=== PATIENT | female | born 1985 | race Caucasian/White ===

== ENCOUNTER 2018-06-07 09:02 | Emergency (ER) | payer OTHER ==
[2018-06-07 09:52] LABS: Absolute Monocytes 0.5 K/uL (0.1-1.3); Absolute Neutrophil 6.8 K/uL (1.8-8.0); Basophils % 0.4 % (0-1.3); Eosinophils % 0.5 % (0-4.4); Hematocrit 36.7 % (36.0-45.0); Lymphocytes % 12.2 % (15.3-44.8); MPV 9.3 fL (7.6-11.3); Monocytes % 5.9 % (3.3-12.3); RBC Red Blood Cell Count 4.26 M/uL (3.86-4.86)
[2018-06-07 10:27] LABS: BUN Blood Urea Nitrogen 8 mg/dL (7-18); Bicarbonate 25 mmol/L (21-32); Glucose Level 80 mg/dL (74-106); HCG, Quantitative 172962 mIU/mL (1-3); Potassium 3.7 mmol/L (3.5-5.1); Sodium Level 137 mmol/L (136-145)
[2018-06-07 10:47] LABS: Urine Blood TRACE (NEG); Urine Glucose NEGATIVE (NEG); Urine Protein 2+ (NEG)
--- NOTE | 2018-06-07 11:21 | RAD REPORT ---
EXAM DESCRIPTION: US - Transvaginal OB - 06/07/2018 11:13 am CLINICAL HISTORY: Vaginal bleeding;Abd cramping, COMPARISON: No comparisons FINDINGS: A single gestational sac is seen within the uterus. The shape of the sac is within normal limits for gestational age. Within the sac is a single pole with crown-rump length of 2.6 cm, c orrelating to estimated gestational age of 9 weeks 2 days. Estimated date of delivery is 01/08/2019. Heart rate is 195 BPM. The placenta is not yet developed due to early gestational age. The maternal adnexa and ovary are within normal limits. IMPRESSION: Single live early intrauterine gestation with estimated gestational age of 9 weeks 2 day s, [place] 01/08/2019.
--- NOTE | 2018-06-07 11:28 | ER ---
Nurse's Notes [facility] Name: Bri Boyd Age: 32 yrs Sex: Female : 1985 Arrival Date: 06/07/2018 Time: 09:05 Bed 16 Private MD: None, None Diagnosis: Threatened Presentation: 06/07 09:17 Presenting complaint: Patient states: is approx 9 weeks , LMP=12-16-18, has had iw spotting and cramping since Monday , states it's not enough to saturate a pad, bright red blood only when she wipes, no cramping now, is seen at [facility] clinic. Transition of care: patient was not received from another setting of care. Onset of symptoms was June 05, 2018. Risk Assessment: Do you want to hurt yourself or someone else? Patient reports no desire to harm self or others. Initial Sepsis Screen: Does the patient meet any 2 criteria? No. Patient's initial sepsis screen is negative. Does the patient have a suspected source of infection? No. Patient's initial sepsis screen is negative. Care prior to arrival: None. 09:17 Method Of Arrival: Ambulatory iw 09:17 Acuity: KARIE 3 iw Triage Assessment: 11:39 General: Appears in no apparent distress. 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 - Social history:: Smoking status: Patient/guardian denies using tobacco. - Ebola Screening: : Patient negative for fever greater than or equal to 101.5 degrees Fahrenheit, and additional compatible Ebola Virus Disease symptoms Patient denies exposure to infectious person Patient denies travel to an Ebola-affected area in the 21 days before illness onset No symptoms or risks identified at this time. Screenin:30 Abuse screen: Denies threats or abuse. Nutritional screening: No deficits noted. aa5 Tuberculosis screening: No symptoms or risk factors identified. Fall Risk None identified. Assessment: 09:30 General: Appears comfortable, Behavior is calm, cooperative. Pain: Complains of pain in aa5 right lower quadrant and left lower quadrant Pain does not radiate. Pain currently is 0 out of 10 on a pain scale. Quality of pain is described as crampy, Is intermittent. Neuro: Level of Consciousness is awake, alert, obeys commands, Oriented to person, place, time, situation. Cardiovascular: Heart tones S1 S2 present Rhythm is regular. Respiratory: Airway is patent Respiratory effort is even, unlabored, Respiratory pattern is regular, symmetrical, Breath sounds are clear bilaterally. GI: Abdomen is round non-distended, Bowel sounds present X 4 quads. Abd is soft and non tender X 4 quads. : Last void was June 07, 2018. Reports vaginal bleeding that is bright red, spotty. EENT: No signs and/or symptoms were reported regarding the EENT system. Derm: Skin is pink, warm \T\ dry. Musculoskeletal: Range of motion: intact in all extremities. Vital Signs: 09:26 BP 139 / 81; Pulse 81; Resp 16 S; Pulse Ox 100% on R/A; Weight 104.33 kg; Height 5 ft. iw 7 in. (170.18 cm); Pain 0/10; 11:32 BP 136 / ???; Pulse 78; Resp 16; Temp 98; Pulse Ox 99% on R/A; Pain 0/10; ls4 09:26 Body Mass Index 36.02 (104.33 kg, 170.18 cm) iw ED Course: 09:05 Patient arrived in ED. mr 09:06 None, None is Private Physician. mr 09:11 Akash Kim PA is PHCP. jr8 09:11 Kadeem Kothari MD is Attending Physician. jr8 09:14 Dianelys Cosme, MCKENZIE is Primary Nurse. aa5 09:21 Triage completed. iw 09:26 Arm band placed on. iw 09:30 Patient has correct armband on for positive identification. Placed in gown. Bed in low aa5 position. Call light in reach. Side rails up X 1. 09:35 Missed attempt(s): 22 gauge in left antecubital area. Bleeding controlled, band aid aa5 applied, catheter tip intact. 09:35 Initial lab(s) drawn, by nj, sent to lab. aa5 09:37 Inserted saline lock: 22 gauge in right upper arm, using aseptic technique. aa5 09:45 Urine collected: clean catch specimen, clear. 5 10:00 Report given to MCKENZIE Lockwood. aa5 11:24 Transvaginal Ob In Process Unspecified. EDMS 11:39 No provider procedures requiring assistance completed. IV discontinued, intact, ls4 bleeding controlled, No redness/swelling at site. Administered Medications: No medications were administered Outcome: 11:27 Discharge ordered by . jr8 11:45 Discharged to home ambulatory, with family. ls4 11:45 Condition: stable 11:45 Discharge instructions given to patient, family, Instructed on discharge instructions, follow up and referral plans. medication usage, safety practices, Demonstrated understanding of instructions, follow-up care, medications. 11:46 Patient left the ED. ls4 Signatures: Dispatcher [employer] EDHI Inga Zarco Irene, RN Dianelys Corbin RN RN 5 Akash Kim PA PA Bri Mei Mandie Reyes, RN RN ls4
--- NOTE | 2018-06-07 11:29 | EDPHYS ---
Physician Documentation [facility] Name: Bri Boyd Age: 32 yrs Sex: Female : 1985 Arrival Date: 06/07/2018 Time: 09:05 Bed 16 Private MD: None, None ED Physician Kadeem Kothari HPI: 06/07 10:23 This 32 yrs old Female presents to ER via Ambulatory with complaints of jr8 Vaginal Bleeding, 9 wks . 10:23 The patient presents with vaginal bleeding that is light, spotting. Onset: The jr8 symptoms/episode began/occurred acutely, 2 day(s) ago. Modifying factors: The symptoms are alleviated by nothing, the symptoms are aggravated by nothing. Associated signs and symptoms: Pertinent positives: cramping. Severity of symptoms: At their worst the symptoms were mild, in the emergency department the symptoms are unchanged. The patient has not experienced similar symptoms in the past. The patient has not recently seen a physician. 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 - Social history:: Smoking status: Patient/guardian denies using tobacco. - Ebola Screening: : Patient negative for fever greater than or equal to 101.5 degrees Fahrenheit, and additional compatible Ebola Virus Disease symptoms Patient denies exposure to infectious person Patient denies travel to an Ebola-affected area in the 21 days before illness onset No symptoms or risks identified at this time. ROS: 10:23 Eyes: Negative for injury, pain, redness, and discharge, ENT: Negative for injury, jr8 pain, and discharge, Neck: Negative for injury, pain, and swelling, Cardiovascular: Negative for chest pain, palpitations, and edema, Respiratory: Negative for shortness of breath, cough, wheezing, and pleuritic chest pain, Abdomen/GI: Negative for abdominal pain, nausea, vomiting, diarrhea, and constipation, Back: Negative for injury and pain, MS/Extremity: Negative for injury and deformity, Skin: Negative for injury, rash, and discoloration, Neuro: Negative for headache, weakness, numbness, tingling, and seizure. 10:23 : Positive for vaginal bleeding, Negative for urinary symptoms, vaginal discharge, vaginal itching. Exam: 10:23 Eyes: Pupils equal round and reactive to light, extra-ocular motions intact. Lids and jr8 lashes normal. Conjunctiva and sclera are non-icteric and not injected. Cornea within normal limits. Periorbital areas with no swelling, redness, or edema. ENT: Nares patent. No nasal discharge, no septal abnormalities noted. Tympanic membranes are normal and external auditory canals are clear. Oropharynx with no redness, swelling, or masses, exudates, or evidence of obstruction, uvula midline. Mucous membranes moist. Neck: Trachea midline, no thyromegaly or masses palpated, and no cervical lymphadenopathy. Supple, full range of motion without nuchal rigidity, or vertebral point tenderness. No Meningismus. Cardiovascular: Regular rate and rhythm with a normal S1 and S2. No gallops, murmurs, or rubs. Normal PMI, no JVD. No pulse deficits. Respiratory: Lungs have equal breath sounds bilaterally, clear to auscultation and percussion. No rales, rhonchi or wheezes noted. No increased work of breathing, no retractions or nasal flaring. Abdomen/GI: Soft, non-tender, with normal bowel sounds. No distension or tympany. No guarding or rebound. No evidence of tenderness throughout. Back: No spinal tenderness. No costovertebral tenderness. Full range of motion. Skin: Warm, dry with normal turgor. Normal color with no rashes, no lesions, and no evidence of cellulitis. MS/ Extremity: Pulses equal, no cyanosis. Neurovascular intact. Full, normal range of motion. Neuro: Awake and alert, GCS 15, oriented to person, place, time, and situation. Cranial nerves II-XII grossly intact. Motor strength 5/5 in all extremities. Sensory grossly intact. Cerebellar exam normal. Normal gait. Vital Signs: 09:26 BP 139 / 81; Pulse 81; Resp 16 S; Pulse Ox 100% on R/A; Weight 104.33 kg; Height 5 ft. iw 7 in. (170.18 cm); Pain 0/10; 11:32 BP 136 / ???; Pulse 78; Resp 16; Temp 98; Pulse Ox 99% on R/A; Pain 0/10; ls4 09:26 Body Mass Index 36.02 (104.33 kg, 170.18 cm) iw MDM: 09:11 Patient medically screened. [facility] 11:26 Data reviewed: vital signs, nurses notes, lab test result(s), radiologic studies, [facility] ultrasound, and as a result, I will discharge patient. Data interpreted: Pulse oximetry: on room air is 100 %. Interpretation: normal. Counseling: I had a detailed discussion with the patient and/or guardian regarding: the historical points, exam findings, and any diagnostic results supporting the discharge/admit diagnosis, lab results, radiology results, the need for outpatient follow up, an OB/Gyne specialist, to return to the emergency department if symptoms worsen or persist or if there are any questions or concerns that arise at home. 06/07 09:31 Order name: Quantitative Hcg; Complete Time: 10:06/07 09:31 Order name: Abo/rh Typing; Complete Time: 11: [facility] 06/07 09:31 Order name: Basic Metabolic Panel; Complete Time: :06/07 09:31 Order name: CBC with Diff; Complete Time: 10:18 06/07 09:48 Order name: Urine Dipstick--Ancillary (enter results); Complete Time: 11: 06/07 09:48 Order name: Urine --Ancillary (enter results); Complete Time: 11: 06/07 09:31 Order name: Urine Test (obtain specimen); Complete Time: 09:45 06/07 09:31 Order name: IV Saline Lock; Complete Time: 10: 06/07 09:31 Order name: Labs collected and sent; Complete Time: 10:06/07 09:31 Order name: NPO; Complete Time: 10:00 06/07 09:31 Order name: Urine Dipstick-Ancillary (obtain specimen); Complete Time: 09:46 [facility] 06/07 10:19 Order name: US Transvaginal Ob; Complete Time: 11:26 jr8 Administered Medications: No medications were administered Disposition: 06/07/18 11:27 Discharged to Home. Impression: Threatened . - Condition is Stable. - Discharge Instructions: Threatened Miscarriage, Vaginal Bleeding During , First Trimester, Pelvic Rest. - Medication Reconciliation Form, Thank You Letter, Antibiotic Education, Prescription Opioid Use form. - Follow up: Private Physician; When: 1 - 2 days; Reason: Recheck today's complaints, Continuance of care, Re-evaluation by your physician. - Problem is new. - Symptoms have improved. Signatures: Dispatcher [employer] EDNunu Mora RN RN Aksah Massey PA PA jr8 Mandie Gupta RN RN ls4 Corrections: (The following items were deleted from the chart) 11:46 11:27 06/07/2018 11:27 Discharged to Home. Impression: Threatened . Condition ls4 is Stable. Forms are Medication Reconciliation Form, Thank You Letter, Antibiotic Education, Prescription Opioid Use. Follow up: Private Physician; When: 1 - 2 days; Reason: Recheck today's complaints, Continuance of care, Re-evaluation by your physician. Problem is new. Symptoms have improved. jr8
[2018-06-07 12:23] VITALS: BP 139/81; O2SAT 100
== END 2018-06-07 11:46 | disposition home or self-care (01) ==
LOC: ER 09:02
DX: O20.0 Threatened abortion (principal); Z3A.09 9 weeks gestation of pregnancy; Z88.6 Allergy status to analgesic agent
CPT/HCPCS: 36415; 76817; 80048; 81003; 81025; 84702; 85025; 86900; 86901; 99283

== ENCOUNTER 2018-08-09 16:51 | Emergency (ER) | payer OTHER ==
--- OUTSIDE RECORDS SUMMARY | 2018-08-09 17:08 | XMS REPORT | Summary of Care ---
:1985 Author Organization [facility] Address [address], [place] [address]- Care Team Providers Name Role Phone Jericawiliam Kenny Alvarado Primary Care Physician Unavailable Encounter HQ [email or web address]_surjit(KAM) [id number] Date(s): 05/09/15 - 05/10/[address] Professional Services provided by [facility] [place] [address]- Discharge Disposition: Home Attending Physician: Pérez Sánchez MD Admitting Physician: Pérez Sánchez MD Referring Physician: Pérez Sánchez MD Vital Signs Most recent to oldest 1 2 3 [Reference Range]: Height 167.64 cm (05/09/15 6:04 AM) Temperature Oral [96.4-99.1 97.9 DegF 98 DegF 98.2 DegF DegF] (05/10/15 4:30 PM) (05/10/15 12:05 PM) (05/10/15 8:50 AM) Blood Pressure [90-140/60-90 110/75 mmHg 109/62 mmHg 106/59 mmHg mmHg] (05/10/15 4:30 PM) (05/10/15 12:05 PM) (05/10/15 8:50 AM) Respiratory Rate [14-20 BRMIN] 16 BRMIN 16 BRMIN 16 BRMIN (05/10/15 4:30 PM) (05/10/15 12:05 PM) (05/10/15 8:50 AM) Peripheral Pulse Rate [60-100 70 bpm 64 bpm 61 bpm bpm] (05/10/15 4:30 PM) (05/10/15 12:05 PM) (05/10/15 8:50 AM) Weight 77.273 kg (05/09/15 6:04 AM) Body Mass Index 27.5 m2 (05/09/15 6:04 AM) Problem List Condition Effective Dates Status Health Status Informant Cholecystitis(Confirmed) Resolved Glanzmann thromboasthenia(Confirmed) Resolved Hepatitis C(Confirmed) Resolved Allergies, Adverse Reactions, Alerts Substance Reaction Severity Status aspirin Active Iron Active NSAIDs Active Medications acetaminophen 650 mg, 2 tab, Route: PO, Drug form: TAB, ONCALL, Dosing Weight 77.273, kg, Premed Blood Products. Not to exceed 4grams/24hrs., Priority: Routine, Start date: 05/09/15 17:00:00, Duration: 30 day, Stop date: 06/08/15 16:59:00 Notes: Do not exceed 4 gm/day. (Same as: Tylenol) Start Date: 05/09/15 Stop Date: 05/10/15 Status: DiscontinuedAmicar + Sodium Chloride 0.9% IV 250 mL 3 gm, 12 mL, Route: IV, Drug form: INJ, Q8H, Dosing Weight 77.273, kg, Start date: 05/10/15 8:00:00,Duration: 30 day, Stop date: 06/09/15 2:00:00 Notes: (Same as: Amicar) Start Date: 05/10/15 Stop Date: 05/10/15 Status: DiscontinuedAmicar 1000 mg oral tablet See Instructions, 3 tab PO q6-8h PRN for bleeding., # 60 tab, 0 Refill(s) Start Date: 05/10/15 Status: OrderedclonazePAM PO, TID, 0 Refill(s) Start Date: 05/09/15 Status: OrderedclonazePAM 0.25 mg, 0.5 tab, Route: PO, Drug form: TAB, TID, Dosing Weight 77.273, kg, PRN Anxiety, Start date:05/09/15 13:00:00, Duration: 30 day, Stop date: 06/08/15 9: 00:00 Notes: (Same As: KlonoPIN) Start Date: 05/09/15 Stop Date: 05/10/15 Status: QrwryyroxhxfT4SS 1,000 mL 1,000 mL, Rate: 125 ml/hr, Infuse over: 8 hr, Route: IV, Dosing Weight 77.273 kg , Total Volume: 1,000, Start date: 05/09/15 8:36:00, Duration: 30 day, Stop date : 06/08/15 8:35:00 Start Date: 05/09/15 Stop Date: 05/10/15 Status: DiscontinuedDilaudid 0.5 mg, 0.25 mL, Route: IV, Drug form: INJ, ONCE, Dosing Weight 77.273, kg, Start date: 05/09/15 6:39:00, Stop date: 05/09/15 6:39:00 Notes: Same as: Dilaudid Start Date: 05/09/15 Stop Date: 05/09/15 Status: CompletedDilaudid 0.2 mg, 0.1 mL, Route: IV, Drug form: INJ, Q3H, Dosing Weight 77.273, kg, PRN Pain Score 7-10, Startdate: 05/09/15 8:37:00, Duration: 30 day, Stop date: 06/08 8:36:00 Notes: Same as: Dilaudid Start Date: 05/09/15 Stop Date: 05/10/15 Status: DiscontinueddiphenhydrAMINE 25 mg, 1 cap, Route: PO, Drug form: CAP, ONCALL, Dosing Weight 77.273, kg, Premed Blood Products, Priority: Routine, Start date: 05/09/15 17:00:00, Duration: 30 day, Stop date: 06/08/15 16:59:00 Notes: (Same as: Benadryl) Start Date: 05/09/15 Stop Date: 05/09/15 Status: Completedmelatonin 3 mg, 1 tab, Route: PO, Drug form: TAB, Bedtime, Dosing Weight 77.273, kg, PRN Sleep, Start date: 05/09/15 20:38:00, Duration: 30 day, Stop date: 06/08/15 20: 37:00 Notes: (Same as: Melatonin) Start Date: 05/09/15 Stop Date: 05/10/15 Status: Discontinuedmethadone PO, 0 Refill(s) Start Date: 05/09/15 Status: Orderedmorphine Sulfate 4 mg, 1 mL, Route: IVP, Drug form: INJ, ONCE, Dosing Weight 77.273, kg, Priority : STAT, Start date: 05/09/15 6:28:00, Stop date: 05/09/15 6:28:00 Notes: (Same as:MORPhine Sulfate) Start Date: 05/09/15 Stop Date: 05/09/15 Status: DiscontinuedNorco 10/325 oral tablet 1-2 tab, PO, Q4-6H, PRN Pain, # 30 tab, 0 Refill(s) Start Date: 05/09/15 Stop Date: 05/14/15 Status: OrderedOfirmev 1,000 mg, 100 mL, Route: IV, Drug form: INJ, Q6H, Dosing Weight 77.273, kg, for > or=50 kg, Start date: 05/09/15 12:00:00, Duration: 30 day, Stop date: 6:00:00 Notes: Infuse over 15 minutesDo not exceed 4gm/day of acetaminophen MEDICATION WASTE ProductSize: 1000 mgProduct Wasted: ___ mg Start Date: 05/09/15 Stop Date: 05/10/15 Status: Discontinuedondansetron 4 mg, 2 mL, Route: IVP, Drug form: INJ, ONCE, Dosing Weight 77.273, kg, Priority : STAT, Start date: 05/09/15 6:28:00, Stop date: 05/09/15 6:28:00 Notes: (Same as: Zofran) MEDICATION WASTE Product Size: 4 mgProduct Wasted: ___ mg Start Date: 05/09/15 Stop Date: 05/09/15 Status: CompletedSodium Chloride 0.9% (titrate) 250 mL 250 mL, Rate: hospital secretary for use with blood product administration, Dosing Weight 77.273, kg, Route: IV, Total Volume: 250, Start Date: 05/09/15 16:47:00, Duration: 30 day, Stop date: 06/08/15 16:46:00, Replace Every: 24 hr Start Date: 05/09/15 Stop Date: 05/10/15 Status: Discontinuedtramadol 100 mg oral tablet, extended release 100 mg=1 tab, PO, Daily, PRN pain, # 60 tab, 0 Refill(s) Start Date: 05/10/15 Stop Date: 05/10/15 Status: DiscontinuedTylenol with Codeine #3 oral tablet 1 - 2 tab, PO, Q4H, PRN Pain, X 3 day, # 20 tab, 0 Refill(s) Start Date: 05/10/15 Stop Date: 05/13/15 Status: Ordered Results BLOOD BANK RESULTS Most recent to oldest [Reference Range]: 1 2 3 ABO/Rh A POS *Unknown* (05/09/15 6:39 AM) Antibody Scrn Negative (05/09/15 6:39 AM) RBC product Product available (05/09/15 4:47 PM) URINE CHEM Most recent to oldest [Reference Range]: 1 2 3 U Preg [Negative] Negative (05/09/15 7:31 AM) HEMATOLOGY Most recent to oldest 1 2 3 [Reference Range]: WBC [3.7-10.4 K/CMM] 6.7 K/CMM (05/09/15 6:39 AM) RBC [4.20-5.40 M/CMM] 2.68 M/CMM *LOW* (05/09/15 6:39 AM) Hgb [12.0-16.0 g/dL] 8.3 g/dL 6.6 g/dL 1 6.9 g/dL 2 *LOW* *CRIT* *CRIT* (05/10/15 4:03 AM) (05/09/15 1:22 PM) (05/09/15 6:39 AM) Hct [36.0-48.0 %] 26.9 % 21.1 % 22.0 % *LOW* *LOW* *LOW* (05/10/15 4:03 AM) (05/09/15 1:22 PM) (05/09/15 6:39 AM) MCV [80.0-98.0 fL] 82.2 fL (05/09/15 6:39 AM) MCH [27.0-31.0 pg] 25.6 pg *LOW* (05/09/15 6:39 AM) MCHC [32.0-36.0 g/dL] 31.2 g/dL *LOW* (05/09/15 6:39 AM) RDW [11.5-14.5 %] 19.3 % *HI* (05/09/15 6:39 AM) Platelet [133-450 K/CMM] 101 K/CMM *LOW* (05/09/15 6:39 AM) MPV [7.4-10.4 fL] 9.0 fL (05/09/15 6:39 AM) Segs [45.0-75.0 %] 89.5 % *HI* (05/09/15 6:39 AM) Lymphocytes [20.0-40.0 %] 7.0 % *LOW* (05/09/15 6:39 AM) Monocytes [2.0-12.0 %] 2.0 % (05/09/15 6:39 AM) Eosinophils [0.0-4.0 %] 0.8 % (05/09/15 6:39 AM) Basophils [0.0-1.0 %] 0.7 % (05/09/15 6:39 AM) Segs-Bands # [1.5-8.1 K/CMM] 6.1 K/CMM (05/09/15 6:39 AM) Lymphocytes # [1.0-5.5 0.5 K/CMM K/CMM] *LOW* (05/09/15 6:39 AM) Monocytes # [0.0-0.8 K/CMM] 0.1 K/CMM (05/09/15 6:39 AM) Eosinophils # [0.0-0.5 0.1 K/CMM K/CMM] (05/09/15 6:39 AM) Hypochrom [None Seen] 1+ (05/09/15 6:39 AM) Plt Morph Normal (05/09/15 6:39 AM) Rapid TEG Sample Type Citrated Whole Blood (05/09/15 7:31 AM) ACT (TEG) [86-118 seconds] 105 seconds (05/09/15 7:31 AM) Split Point 0.3 minutes *NA* (05/09/15 7:31 AM) R-time [0.4-0.7 minutes] 0.6 minutes (05/09/15 7:31 AM) K-time [0.6-2.3 minutes] 4.8 minutes *HI* (05/09/15 7:31 AM) Angle [64-80 degrees] 63 degrees *LOW* (05/09/15 7:31 AM) Max Amp [52-71 mm] 36 mm *LOW* (05/09/15 7:31 AM) G-value [5.0-11.6 K d/sc] 2.8 K d/sc *LOW* (05/09/15 7:31 AM) Estimated % Lysis [0.0-7.5 0.0 % %] (05/09/15 7:31 AM) 1Result Comment: Critical Result(s) called to Hailey Bauer RN_ at 05/09/2015 13:45_ by Ebby_. Read back OK.2Result Comment: Critical Result(s) called to Sherry Vincent_ at 05/09/2015 07:57_ by Ebby_. Read back OK. Immunizations No data available for this section Procedures Procedure Date Related Diagnosis Body Site External fixation 04/2015 Cholecystectomy 2014 Hernia repair 1994 section Social History Social History Type Response Alcohol Current, Type Wine. Frequency: 1-2 times per month. Previous treatment: None. 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 Pt reports pain is stable. OBJECTIVE Vitals Tmp(F) Pulse BP RR SpO2 FIO2 05/10 03:26 98.1 89 115/63 18 97 --- 05/10 01:05 98.2 80 108/70 18 99 --- 05/09 23:00 98.3 70 114/70 18 98 --- 05/09 22:07 98.5 66 101/61 18 99 --- 05/09 21:52 98.5 83 101/61 18 97 --- 24 Hr Tmax: 99.1F (37.28c) at 05/09 10:37 Vital Signs are the last 5 in the past 48 hours. Gen: NAD CV: RRR Lungs: CTAB Abd: Soft, appropriately tender, ND, +BS Ext: No C/C/E/T b/l; SCDs and Teds in place 24hr Labs 05/09 1647 RBC product Product available 05/09 1322 Hgb 6.6 C Hct 21.1 L 05/09 0731 U Preg Negative Rapid TEG Sample Type Citrated Whole Blood ACT (TEG) 105 Split Point 0.3 R-time 0.6 K-time 4.8 H Angle 63 L Max Amp 36 L G-value 2.8 L Estimated % Lysis 0.0 05/09 0639 ABO/Rh A POS Antibody Scrn Negative XM EXM Interp Computer XM OK XM EXM Interp Computer XM OK WBC 6.7 RBC 2.68 L Hgb 6.9 C Hct 22.0 L MCV 82.2 MCH 25.6 L MCHC 31.2 L RDW 19.3 H Platelet 101 L MPV 9.0 Segs 89.5 H Monocytes 2.0 Lymphocytes 7.0 L Eosinophils 0.8 Basophils 0.7 Segs-Bands # 6.1 Lymphocytes # 0.5 L Monocytes # 0.1 Eosinophils # 0.1 Plt Morph Normal Hypochrom 1+ [place] still necessary (Yes/No): Line still necessary (Yes/No): Date Wt(kg) Wt(lb) Ht(cm) Ht(in) Method 05/09 (initial) 77.27 170.00 Measured 05/09 167.64 66.00 Stated I&O Record In Out Bal 05/09 24hr Tot 2184 1 2183 05/08 24hr Tot 0 0 0 Medications (11) Active Scheduled Meds (2): 05/09/15 acetaminophen (Ofirmev) 1,000 mg IV Q6H 05/10/15 aminocaproic acid + Sodium Chloride 0.9% IV 250 mL (Amicar + Sodium Chloride 0.9% IV 250 mL) 3 gm IV Q8H 87.33 ml/hr Unscheduled Meds (1): 05/09/15 acetaminophen 650 mg PO ONCALL PRN Meds (3): 05/09/15 clonazePAM 0.25 mg PO TID 05/09/15 hydromorphone (Dilaudid) 0.2 mg IV Q3H 05/09/15 melatonin 3 mg PO Bedtime One Time Meds (3): 05/09/15 (Completed) hydromorphone (Dilaudid) 0.5 mg IV ONCE 05/09/15 (Discontinued) morphine Sulfate 4 mg IVP ONCE 05/09/15 (Completed) ondansetron 4 mg IVP ONCE Continuous Infusions (2): 05/09/15 Dextrose 5% in Lactated Ringers IV 1,000 mL (D5LR 1,000 mL) 1,000 mL 125 ml/hr 05/09/15 Sodium Chloride 0.9% IV 250 mL (Sodium Chloride 0.9% (titrate) 250 mL ) 250 mL hospital secretary for use with blood product administration ASSESSMENT 29 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 PLAN 1. Ruptured hemorrhagic cyst- Arising from right ovary with free fluid in posterior cul-du-sac suggestive of hemoperitoneum. Hgb on arrival 6.9 after 1 u PRBCs at outside hospital. No peritoneal signs on abdominal exam. Hemodynamically stable. 2. Glanzmann's thrombasthenia- s/p Hematology consult. Recs include transfusing plts before any procedure. Start Amicar 3g and d/c w/ PO amicar. Have pt f/u with Hematology on d/c. 3. Acute Blood Loss Anemia: 6.0 --> 1 u PRBCs 6.9 --> 6.6-->2U PRBCs-->8.3. Pt asymptomatic Dispo: Anticipate d/c home today after touching base w/ hematology. Amina Kyle MD PGY-2 Extracted from: Title: Hematology Initial Consult Author: Aguilar Mcnally MD Date: RFC: Evaluation of Glanzmann Thrombasthenia in a patient with a Uterine bleed HPI: 29 y.o. F w/ Glanzmann Thrombasthenia, iron deficiency anemia, and Hepatitis C she presents with 1 day of abdominal pain, nausea, chills and found to have a ruptured uterine cyst. She recieved 1 u nit of prbcs at an outside hosptial and was transferred here. Review of Symptoms: Const: denies fevers and chills Eyes: no blurry vision ENT: no cough, no trouble swallowing Resp: no shortness of rbeath CV: no chest pain GI: no nausea or vomiting : no dysuria Skin: no rash Spark Plug Tester: see HPI Heme: see HPI Neuro: no headache 10 point review of systems is negative unless stated above PAST MEDICAL HISTORY: Glanzmann Thrombastehnia Iron Deficiency Anemia Hepatitis C PAST SURGICAL HISTORY: Hernia Repair Cholecystectomy x2 SOCIAL HISTORY: Denies EtOH, illicits, smoking FAMILY HISTORY: No family hx of bleeding disorders, glanzmann or osteoporosis Allergies (3) Active Reaction Iron None documented NSAIDs None documented aspirin None documented MEDS: reviewed in care 4 Physical Exam: Vitals Tmp(F) Pulse BP RR SpO2 FIO2 05/09 08:12 98.3 86 101/59 18 --- --- 05/09 07:30 ---- 80 104/61 18 98 --- 05/09 07:08 ---- 97 110/51 16 97 --- 05/09 06:04 99.0 104 114/57 16 98 --- 24 Hr Tmax: 99.0F (37.22c) at 05/09 06:04 Vital Signs are the last 5 in the past 48 hours. General- Well-appearing female in NAD Eyes- PERRL, EOMI, sclerae anicteric ENT- oropharynx clear without any noted lesions CV- RRR, S1/S2 present, no m/g/r Chest- CTAB Abdomen- Soft, ND/NT, +BS, no hepatosplenomegaly palpated Skin- No rash Neuro- Nonfocal Psych- Normal affect 05/09 0639 ABO/Rh A POS Antibody Scrn Negative WBC 6.7 RBC 2.68 L Hgb 6.9 C Hct 22.0 L MCV 82.2 MCH 25.6 L MCHC 31.2 L RDW 19.3 H Platelet 101 L MPV 9.0 Segs 89.5 H Monocytes 2.0 Lymphocytes 7.0 L Eosinophils 0.8 Basophils 0.7 Segs-Bands # 6.1 Lymphocytes # 0.5 L Monocytes # 0.1 Eosinophils # 0.1 Plt Morph Normal Hypochrom 1+ ASSESSMENT AND PLAN: 29 y.o. F w/ Glanzmann Thrombasthenia, iron deficiency anemia, Hepatitis C who presents after a ruptured uterine cyst and symptomatic anemia, she is now hemodynamically stable. 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 Lack of this causes a coagulopathy as no fibrin or formal clot can form. - Please start Amicar 3g (12cc) q8h and continue for 3 days after her surgery. If patient is ready for discharge prior to the 3 days, can switch to PO amicar. - Please give 1 jumbopack of platelets prior to any planned surgical procedure - If excess bleeding occurs, please call Hematology. Will need to dose with Factor VIIa 30mcg/kg IV x1, but call prior to giving - At time of discharge, please make follow up with her primary Turkey Egg Gatherer ( Matthias Rothman) [phone] - At time of discharge, patient will need a script for Amicar 3g q6-8h PRN bleeding, 60 tablets (or enough to last her until she sees Dr. Rothman in clinic ) # Iron Deficiency Anemia - Hx of being on oral iron, but varied compliance - Please start PO Ferrous Sulfate 325mg - transfuse per primary team; please let hematology know prior to discharge as she may benefit from IV iron prior to discharge Pt was seen and the plan was discussed with Dr. Holliday who helped formulate it. Addendum by Duglas Holliday MD on Hematology Attending Attestation: 05/09/2015 16:45 I saw and examined this patient with on 05/09/2015 , and I agree with findings, assessment, and recommended plan of care. I personally reviewed all labs. Duglas Holliday M.D. [id number] Identification Technician Division of Hematology (Internal Medicine) [facility]
--- OUTSIDE RECORDS SUMMARY | 2018-08-09 17:08 | XMS REPORT | CCD ---
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 Medications Medication Instructions Start Date End Date Status Zofran 4 mg, 2 mL, Route: IV, 08/29/2012 09/01/2012 Discontinued Drug form: INJ, Q8H, Dosing Weight 84.091, kg, PRN Nausea, Start date: 08/29/12 11:20:00, Duration: 30 day, Stop date: 09/28/12 11:19:00 [place] 10/325 oral tablet 2 tab, Route: PO, Drug 08/30/2012 09/01/2012 Discontinued Form: TAB, Dosing Weight 81.818, kg, Q4H, PRN Pain, Start date: 08/30/12 18:00:00, Duration: 30 day, Stop date: 09/29/12 17:59:00 morphine Sulfate 2 mg, 1 mL, Route: IVP, 08/29/2012 08/29/2012 Discontinued Drug form: INJ, Q2H, Dosing Weight 84.091, kg, PRN Pain, Start date: 08/29/12 11:20:00, Duration: 30 day, Stop date: 09/28/12 11:19:00 Colace 100 mg oral capsule 100 mg, 1 cap, Route: 08/29/2012 09/01/2012 Discontinued PO, Drug form: CAP, BID, Dosing Weight 84.091, kg, Start date: 08/29/12 17:00:00, Duration: 30 day, Stop date: 09/28/12 9:00:00 [place] 5/325 oral tablet 2 tab, Route: PO, Drug 08/29/2012 08/30/2012 Discontinued Form: TAB, Dosing Weight 84.091, kg, Q4H, PRN Pain, Start date: 08/29/12 11:18:00, Duration: 30 day, Stop date: 09/28/12 11:17:00 D5W 1/2NS + KCL 20mEq/L 1,000 mL, Rate: 75 08/29/2012 08/29/2012 Discontinued 1000ml (Premix) 1,000 mL ml/hr, Infuse over: 13.3 hr, Route: IV, Dosing Weight 84.091 kg, Total Volume: 1,000, Start date: 08/29/12 11:18:00, Duration: 30 day, Stop date: 09/28/12 11:17:00 aminocaproic acid 1.25 g/5 3 gm, 12 mL, PO, Q6H, 1 08/31/2012 Ordered mL oral syrup mL, Substitution Allowed, SYRP Colace 100 mg oral capsule 100 mg, 1 cap, PO, BID, 08/31/2012 Ordered 30 cap, Substitution Allowed, CAP [place] 10/325 oral tablet 1 tab, PO, Q4H, PRN, 30 08/31/2012 Ordered tab, Pain, Substitution Allowed, Maintenance, TAB diphenhydrAMINE 25 mg, 1 cap, Route: PO, Drug form: CAP, ONCALL, Dosing Weight 81.818, kg, Priority: Routine, Start date: 08/29/12 16:00:00, Duration: 30 day, Stop date: 09/28/12 15:59:00, Premed Blood Products 08/29/20122012 Discontinued Premed Blood Products acetaminophen 650 mg, 2 tab, Route: PO, Drug form: TAB, ONCALL, Dosing Weight 81.818, kg, Priority: Routine, Start date: 08/29/12 16:00:00, Duration: 30 day, Stop date: 09/28/12 15:59:00, Premed Blood Products. Not to exceed 4grams/ 24hrs. 08/29/2012 09/01/2012 Discontinued Premed Blood Products. Not to exceed 4grams/24hrs. 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 08/31/2012 09/01/2012 Completed (titrate) 250 mL for use with blood product administration, Dosing Weight 81.818, kg, Route: IV, Total Volume: 250, Duration: 1 day, Stop date: 09/01/12 9:30:00, Replace Every: 24 hr cefoxitin (SCIP) 1 gm, Route: IVPB, Drug 08/30/2012 08/30/2012 Completed form: INJ, ONCE, Dosing Weight 81.818, kg, Start date: 08/30/12 11:21:00, Stop date: 08/30/12 11:21:00 Dilaudid 0.2 mg, 0.1 mL, Route: 08/29/2012 08/31/2012 Discontinued IV, Drug form: INJ, Q4H, Dosing Weight 81.818, kg, PRN Pain, Start date: 08/29/12 15:37:00, Duration: 30 day, Stop date: 09/28/12 15:36:00 morphine Sulfate 4 mg, 1 mL, Route: IVP, 08/29/2012 08/29/2012 Completed Drug form: INJ, ONCE, Dosing Weight 84.091, kg, Start date: 08/29/12 10:31:00, Stop date: 08/29/12 10:31:00 Amicar 3 gm, 12 mL, Route: PO, 08/29/2012 08/29/2012 Deleted Drug form: SOLN, Q6H, Dosing Weight 81.818, kg, Start date: 08/29/12 18:00:00, Stop date: 09/28/12 12:00:00 hydromorphone 0.5 mg, 0.25 mL, Route: 08/30/2012 08/30/2012 Discontinued IVP, Drug form: INJ, Q5Min, Dosing Weight 81.818, kg, PRN Pain Score 7-10, Start date: 08/30/12 13:22:00, Duration: 5 doses or times, Stop date: 08/31/12 0:00:00 flumazenil 0.2 mg, 2 mL, Route: 08/30/2012 08/30/2012 Discontinued IVP, Drug form: INJ, PRN, Dosing Weight 81.818, kg, PRN Benzodiazepine Reversal, Initial dose, Start date: 08/30/12 13:22:00, Stop date: 08/31/12 0:00:00 naloxone 0.04 mg, 0.1 mL, Route: 08/30/2012 08/30/2012 Discontinued IVP, Drug form: INJ, Q2MIN, Dosing Weight 81.818, kg, PRN Narcotic Reversal, Start date: 08/30/12 13:22:00, Duration: 8 doses or times, Stop date: 08/31/12 0:00:00 ondansetron 4 mg, 2 mL, Route: IVP, 08/30/2012 08/30/2012 Discontinued Drug form: INJ, ONCE, Dosing Weight 81.818, kg, PRN Nausea & Vomiting, Start date: 08/30/12 13:22:00 Vital Signs Most recent to oldest 1 2 3 [Reference Range]: Height 167.64 cm 167.64 cm (08/29/2012 14:03:00) (08/29/2012 10:02:00) Temperature Oral 98.1 DegF 98.0 DegF 98.1 DegF [96.4-99.1 DegF] (09/01/2012 07:56:00) (09/01/2012 03:53:00) (09/01/2012 00: 28:00) Systolic Blood Pressure 116 mmHg 113 mmHg 112 mmHg [90-140 mmHg] (09/01/2012 07:56:00) (09/01/2012 03:53:00) (09/01/2012 00:28: 00) Diastolic Blood Pressure 72 mmHg 56 mmHg 72 mmHg [60-90 mmHg] (09/01/2012 07:56:00) *LOW* (09/01/2012 00:28:00) (09/01/2012 03:53:00) Respiratory Rate [14-20 17 BRMIN 17 BRMIN 18 BRMIN BRMIN] (09/01/2012 07:56:00) (09/01/2012 03:53:00) (09/01/2012 00:28:00) Peripheral Pulse Rate 71 bpm 66 bpm 100 bpm [60-100 bpm] (09/01/2012 07:56:00) (09/01/2012 03:53:00) (09/01/2012 00:28: 00) Weight 81.818 kg 84.091 kg (08/29/2012 14:03:00) (08/29/2012 10:02:00) Results URINALYSIS Most recent to oldest [Reference Range]: 1 2 3 UA Turbidity [Clear] Clear (08/29/2012 11:40:00) UA Color [Yellow] Yellow *NA* (08/29/2012 11:40:00) UA pH [5.0-8.0] 6.0 (08/29/2012 11:40:00) UA Spec Grav [<=1.030] 1.010 (08/29/2012 11:40:00) UA Glucose [Negative mg/dL] Negative mg/dL (08/29/2012 11:40:00) UA Blood [Negative] Negative (08/29/2012 11:40:00) UA Ketones [Negative mg/dL] Negative mg/dL *NA* (08/29/2012 11:40:00) UA Protein [Negative mg/dL] Negative mg/dL (08/29/2012 11:40:00) UA Urobilinogen [0.1-1.0 EU/dL] 0.2 EU/dL (08/29/2012 11:40:00) UA Bili [Negative] Negative *NA* (08/29/2012 11:40:00) UA Leuk Est [Negative] Negative (08/29/2012 11:40:00) UA Nitrite [Negative] Negative (08/29/2012 11:40:00) UA WBC [None Seen] None Seen (08/29/2012 11:40:00) UA RBC [0-2] None Seen (08/29/2012 11:40:00) UA Bacteria [None Seen] None Seen (08/29/2012 11:40:00) UA Sq Epi [Few /LPF] Few /LPF (08/29/2012 11:40:00) UA Mucus [None Seen] None Seen (08/29/2012 11:40:00) BLOOD BANK RESULTS Most recent to [Reference Range]: 1 2 3 ABO/Rh A POS *Unknown* (08/29/2012 10:50:00) Antibody Scrn Negative (08/29/2012 10:50:00) Platelet product Product available (08/30/2012 00:00:00) RBC product Product available (08/31/2012 09:31:00) CHEMISTRY Most recent to oldest [Reference 1 2 3 Range]: Sodium Lvl [135-145 mEq/L] 140 mEq/L 140 mEq/L (08/31/2012 02:20:00) (08/29/2012 10:50:00) Potassium Lvl [3.5-5.1 mEq/L] 3.8 mEq/L 4.2 mEq/L (08/31/2012 02:20:00) (08/29/2012 10:50:00) Chloride Lvl [95-109 mEq/L] 105 mEq/L 104 mEq/L (08/31/2012 02:20:00) (08/29/2012 10:50:00) CO2 [24-32 mEq/L] 25 mEq/L 23 mEq/L (08/31/2012 02:20:00) *LOW* (08/29/2012 10:50:00) AGAP [10.0-20.0 mEq/L] 13.8 mEq/L 17.2 mEq/L (08/31/2012 02:20:00) (08/29/2012 10:50:00) Creatinine Lvl [0.5-1.4 mg/dL] 0.6 mg/dL 0.5 mg/dL (08/31/2012 02:20:00) (08/29/2012 10:50:00) eGFR 124 mL/min/1.73m2 1 132 mL/min/1.73m2 2 *NA* *NA* (08/31/2012 02:20:00) (08/29/2012 10:50:00) BUN [7-22 mg/dL] 3 mg/dL 4 mg/dL *LOW* *LOW* (08/31/2012 02:20:00) (08/29/2012 10:50:00) Glucose Lvl [70-99 mg/dL] 112 mg/dL 3 90 mg/dL 4 *HI* (08/29/2012 10:50:00) (08/31/2012 02:20:00) Total Protein [6.4-8.4 g/dL] 6.5 g/dL (08/29/2012 10:50:00) Albumin Lvl [3.5-5.0 g/dL] 3.1 g/dL *LOW* (08/29/2012 10:50:00) Globulin [2.0-4.0 g/dL] 3.4 g/dL (08/29/2012 10:50:00) A/G Ratio [0.7-1.6] 0.9 (08/29/2012 10:50:00) Calcium Lvl [8.5-10.5 mg/dL] 8.7 mg/dL 7.9 mg/dL (08/31/2012 02:20:00) *LOW* (08/29/2012 10:50:00) Phosphorus [2.5-4.5 mg/dL] 3.7 mg/dL (08/31/2012 02:20:00) Magnesium Lvl [1.8-2.4 mg/dL] 1.6 mg/dL *LOW* (08/31/2012 02:20:00) ALT [0-65 unit/L] 21 unit/L (08/29/2012 10:50:00) AST [0-37 unit/L] 24 unit/L (08/29/2012 10:50:00) Alk Phos [39-136 unit/L] 61 unit/L (08/29/2012 10:50:00) Bili Total [0.2-1.3 mg/dL] 0.1 mg/dL *LOW* (08/29/2012 10:50:00) Bili Direct [0.0-0.3 mg/dL] 0.1 mg/dL (08/29/2012 10:50:00) Bili Indirect [0.0-1.0 mg/dL] 0.0 mg/dL (08/29/2012 10:50:00) U Preg [Negative] Negative (08/29/2012 11:40:00) 1Result Comment: The eGFR is calculated using the CKD-EPI formula. In most young , healthy individualsthe eGFR will be >90 mL/min/1.73m2. The eGFR declines with age. An eGFR of 60-89 may be normal in some populations, particularly the elderly, for whom the CKD-EPI formula has not been extensively validated. Use of the eGFR is not recommended in the following populations: Individuals with unstable creatinine concentrations, including patients and those with serious co-morbid conditions. Patients with extremes in muscle mass or diet. The data above are obtained from the National Kid[employer] Disease Education Program ( NK[employer]) which additionally recommends that when the eGFR is used in patients with extremes of body mass index for purposesof drug dosing, the eGFR should be multiplied by the estimated BMI.2Result Comment: The eGFR is calculated using the CKD-EPI formula. In most young, healthy individualsthe eGFR will be >90 mL/ min/1.73m2. The eGFR declines with age. An eGFR of 60-89 may be normal in some populations, particularly the elderly, for whom the CKD-EPI formula has not been extensively validated. Use of the eGFR is not recommended in the following populations: Individuals with unstable creatinine concentrations, including patients and those with serious co-morbid conditions. Patients with extremes in muscle mass or diet. The data above are obtained from the National Kid[employer] Education Program ( NKDEP) which additionally recommends that when the eGFR is used in patients with extremes of body mass index for purposesof drug dosing, the eGFR should be multiplied by the estimated BMI.3Interpretive Data: Adult reference range values reflect the clinical guidelines of the [place] [employer].4Interpretive Data: Adult reference range values reflect the clinical guidelines of the [place] [employer].HEMATOLOGY Most recent to oldest 1 2 3 [Reference Range]: WBC [3.7-10.4 K/CMM] 6.3 K/CMM 6.5 K/CMM 8.8 K/CMM (09/01/2012 04:09:00) (08/31/2012 02:20:00) (08/30/2012 20::31) RBC [4.20-5.40 M/CMM] 3.31 M/CMM 2.72 M/CMM 2.72 M/CMM *LOW* *LOW* *LOW* (09/01/2012 04:09:00) (08/31/2012 02:20:00) (08/30/2012::31) Hgb [12.0-16.0 g/dL] 8.3 g/dL 6.6 g/dL 5 6.7 g/dL 6 *LOW* *CRIT* *CRIT* (09/01/2012 04:09:00) (08/31/2012 02:20:00) (08/30/2012:) Hct [36.0-48.0 %] 26.4 % 21.8 % 22.3 % *LOW* *LOW* *LOW* (09/01/2012 04:09:00) (08/31/2012 02:20:00) (08/30/2012::31) MCV [81.0-99.0 fL] 79.9 fL 80.1 fL 82.0 fL *LOW* *LOW* (08/30/2012::31) (09/01/2012 04:09:00) (08/31/2012 02:20:00) MCH [27.0-31.0 pg] 25.0 pg 24.3 pg 24.6 pg *LOW* *LOW* *LOW* (09/01/2012 04:09:00) (08/31/2012 02:20:00) (08/30/2012::31) MCHC [32.0-36.0 g/dL] 31.3 g/dL 30.3 g/dL 30.0 g/dL *LOW* *LOW* *LOW* (09/01/2012 04:09:00) (08/31/2012 02:20:00) (08/30/2012::31) RDW [11.5-14.5 %] 17.4 % 18.2 % 18.0 % *HI* *HI* *HI* (09/01/2012 04:09:00) (08/31/2012 02:20:00) (08/30/2012 20:01:31) Platelet [133-450 K/CMM] 86 K/CMM 84 K/CMM 85 K/CMM *LOW* *LOW* *LOW* (09/01/2012 04:09:00) (08/31/2012 02:20:00) (08/30/2012 20:01:31) MPV [7.4-10.4 fL] 9.5 fL 9.4 fL 9.9 fL (09/01/2012 04:09:00) (08/31/2012 02:20:00) (08/30/2012 20:01:31) Segs [45.0-75.0 %] 63.7 % 74.8 % 82.6 % (09/01/2012 04:09:00) (08/31/2012 02:20:00) *HI* (08/30/2012::31) Bands [0.0-11.0 %] 0.0 % (08/29/2012 10:50:00) Lymphocytes [20.0-40.0 %] 19.3 % 14.6 % 8.9 % *LOW* *LOW* *LOW* (09/01/2012 04:09:00) (08/31/2012 02:20:00) (08/30/2012::31) Atypical Lymphs [<=0.0 %] 0.0 % (08/29/2012 10:50:00) Monocytes [2.0-12.0 %] 9.2 % 7.2 % 7.0 % (09/01/2012 04:09:00) (08/31/2012 02:20:00) (08/30/2012 20:01:31) Eosinophils [0.0-4.0 %] 7.3 % 3.1 % 1.3 % *HI* (08/31/2012 02:20:00) (08/30/2012:01:31) (09/01/2012 04:09:00) Basophils [0.0-1.0 %] 0.5 % 0.3 % 0.2 % (09/01/2012 04:09:00) (08/31/2012 02:20:00) (08/30/2012 20:01:31) Segs-Bands # [1.5-8.1 4.0 K/CMM 4.9 K/CMM 7.3 K/CMM K/CMM] (09/01/2012 04:09:00) (08/31/2012 02:20:00) (08/30/2012 20:01:31) Lymphocytes # [1.0-5.5 1.2 K/CMM 0.9 K/CMM 0.8 K/CMM K/CMM] (09/01/2012 04:09:00) *LOW* *LOW* (08/31/2012 02:20:00) (08/30/2012 20:01:31) Monocytes # [0.0-0.8 K/CMM] 0.6 K/CMM 0.5 K/CMM 0.6 K/CMM (09/01/2012 04:09:00) (08/31/2012 02:20:00) (08/30/2012 20:01:31) Eosinophils # [0.0-0.5 0.5 K/CMM 0.2 K/CMM 0.1 K/CMM K/CMM] (09/01/2012 04:09:00) (08/31/2012 02:20:00) (08/30/2012 20:01:31) Polychrom [None Seen] Slight (08/29/2012 10:50:00) Hypochrom [None Seen] Slight (08/29/2012 10:50:00) Microcyte [None Seen] 1+ *ABN* (08/29/2012 10:50:00) Schistocyte Rare *Unknown* (08/29/2012 10:50:00) Plt Morph Normal (08/29/2012 10:50:00) PT [12.0-14.7 seconds] 14.5 seconds (08/30/2012 04:58:00) INR [0.85-1.17] 1.11 7 (08/30/2012 04:58:00) Fibrinogen Lvl [230-510 219 mg/dL mg/dL] *LOW* (08/30/2012 04:58:00) PTT [22.9-35.8 seconds] 27.4 seconds 8 (08/30/2012 04:58:00) Rapid TEG Sample Type Citrated Whole Bld *NA* (08/29/2012 10:51:00) ACT (TEG) [86-118 seconds] 105 seconds (08/29/2012 10:51:00) Split Point 0.4 minutes *NA* (08/29/2012 10:51:00) R-time [0.4-0.7 minutes] 0.6 minutes (08/29/2012 10:51:00) K-time [0.6-2.3 minutes] 6.6 minutes *HI* (08/29/2012 10:51:00) Angle [64-80 degrees] 53 degrees *LOW* (08/29/2012 10:51:00) Max Amp [52-71 mm] 34 mm *LOW* (08/29/2012 10:51:00) G-value [5.0-11.6 K d/sc] 2.6 K d/sc *LOW* (08/29/2012 10:51:00) Estimated % Lysis [0.0-7.5 0.0 % %] (08/29/2012 10:51:00) 5Result Comment: Critical Result(s) called to Rosangela Nugent at 08/31/2012 04:30:58 CDT by GD. Read back OK.6Result Comment: Critical Result(s) called to Wilda Godfrey at 08/30/2012 23:19:04 CDT by GD. Read back OK.7Interpretive Data: RECOMMENDED RANGES FOR PROTIME INR: 2.0-3.0 for most medical and surgical thromboembolic states. 2.5-3.5 for artificial heart valves and recurrent embolism. INR SHOULD BE USED ONLY FOR PATIENTS ON STABLE ANTICOAGULANT THERAPY.8Interpretive Data: Heparin Therapeutic Range: 57 - 92 Seconds Procedures Procedures Date Related Diagnosis section
--- OUTSIDE RECORDS SUMMARY | 2018-08-09 17:08 | XMS REPORT | Summary of Care ---
:1985 Author Organization [facility] Address [address] [place], [place] [address]- Care Team Providers Name Role Phone Kenny Bonds Sofiawiliam Primary Care Physician Unavailable Encounter [facility] Tigist_[email or web address](FIN) [phone] Date(s): 04/14/15 - 04/18/[address] Professional Services provided by [facility] [place] [address]- Discharge Disposition: Home Attending Physician: Arturo Gunter MD Admitting Physician: Arturo Gunter MD Referring Physician: Rod Multani MD Vital Signs Most recent to oldest 1 2 3 [Reference Range]: Height 167.7 cm 167.64 cm (04/15/15 1:18 AM) (04/14/15 4:36 PM) Temperature Oral [96.4-99.1 98.7 DegF 98.6 DegF 98.8 DegF DegF] (04/18/15 8:58 PM) (04/18/15 4:24 PM) (04/18/15 11:35 AM) Blood Pressure [90-140/60-90 128/73 mmHg 111/61 mmHg 112/64 mmHg mmHg] (04/18/15 8:58 PM) (04/18/15 4:24 PM) (04/18/15 11:35 AM) Respiratory Rate [14-20 18 BRMIN 20 BRMIN 18 BRMIN BRMIN] (04/18/15 8:58 PM) (04/18/15 4:24 PM) (04/18/15 11:35 AM) Peripheral Pulse Rate [60-100 82 bpm 83 bpm 76 bpm bpm] (04/18/15 8:58 PM) (04/18/15 4:24 PM) (04/18/15 11:35 AM) Weight 81.818 kg 81.818 kg (04/15/15 1:18 AM) (04/14/15 4:36 PM) Body Mass Index 29.09 m2 29.11 m2 (04/15/15 1:18 AM) (04/14/15 4:36 PM) Problem List Condition Effective Dates Status Health Status Informant Cholecystitis(Confirmed) Resolved Glanzmann thromboasthenia(Confirmed) Resolved Hepatitis C(Confirmed) Resolved Allergies, Adverse Reactions, Alerts Substance Reaction Severity Status aspirin Active Iron Active NSAIDs Active Medications acetaminophen 1,000 mg, 2 tab, Route: PO, Drug form: TAB, Q6H, Dosing Weight 81.818, kg, Start date: 04/16/15 12:00:00, Duration: 30 day, Stop date: 05/16/15 6:00:00 Notes: Max acetaminophen 4000 mg/day (4 gm/day). (Same as: Tylenol Extra Strength) Start Date: 04/16/15 Stop Date: 04/18/15 Status: Discontinuedacetaminophen 1,000 mg, 100 mL, Route: IVPB, Drug form: INJ, Q6Hnow, Dosing Weight 81.818, kg , Start date: 04/15/15 0:00:00, Stop date: 05/14/15 17:00:00 Notes: Infuse over 15 minutesDo not exceed 4gm/day of acetaminophen MEDICATION WASTE ProductSize: 1000 mgProduct Wasted: ___ mg Start Date: 04/15/15 Stop Date: 04/16/15 Status: DiscontinuedAmicar 1 gm, PO, Q6H, 0 Refill(s) Start Date: 04/15/15 Stop Date: 04/18/15 Status: DiscontinuedAmicar + Sodium Chloride 0.9% IV 150 mL 3 gm, 12 mL, Route: IVPB, Drug form: INJ, Q8H, Dosing Weight 81.818, kg, Start date: 04/14/15 20:30:00, Stop date: 05/14/15 14:30:00 Notes: (Same as: Amicar) Start Date: 04/14/15 Stop Date: 04/18/15 Status: DiscontinuedAmicar 1000 mg oral tablet See Instructions, 3 tab PO q6-8h PRN for bleeding., # 60 tab, 0 Refill(s) Start Date: 04/18/15 Status: OrderedAncef 2 gm, Route: IV, ONCE, Dosing Weight 81.818, kg, Start date: 04/15/15 7:49:00, Duration: 1 doses or times, Stop date: 04/15/15 7:49:00 Start Date: 04/15/15 Stop Date: 04/15/15 Status: CompletedAncef + Sodium Chloride 0.9% IV 100 mL 2 gm, Route: IVPB, Drug form: INJ, Q8H, Dosing Weight 81.818, kg, Start date: 16:00:00, Duration: 1 day, Stop date: 04/16/15 8:00:00 Notes: (Same As: Pato Garcia)Cefazolin FOR IV SET ONLY MEDICATION WASTE Product Size:1000 mgProduct Wasted: ___ mg Start Date: 04/15/15 Stop Date: 04/16/15 Status: CompletedDilaudid 1 mg, 0.5 mL, Route: IV, Drug form: INJ, Q4H, Dosing Weight 81.818, kg, PRN Pain Score 7-10, Start date: 04/15/15 0:14:00, Stop date: 05/15/15 0:13:00 Notes: Same as: Dilaudid Start Date: 04/15/15 Stop Date: 04/16/15 Status: DiscontinuedDilaudid 0.5 mg, Route: IVP, ONCE, Dosing Weight 81.818, kg, Priority: STAT, Start date: 04/14/15 20:34:00, Stop date: 04/14/15 20:34:00 Start Date: 04/14/15 Stop Date: 04/14/15 Status: CompletedDilaudid 1 mg, Route: IVP, ONCE, Dosing Weight 81.818, kg, Priority: STAT, Start date: 19:41:00, Stop date: 04/14/15 19:41:00 Start Date: 04/14/15 Stop Date: 04/14/15 Status: CompletedDilaudid 1 mg, Route: IVP, ONCE, Dosing Weight 81.818, kg, Priority: STAT, Start date: 5:06:00, Stopdate: 04/16/15 5:06:00 Start Date: 04/16/15 Stop Date: 04/16/15 Status: DiscontinueddiphenhydrAMINE 12.5 mg, 5 mL, Route: PO, Drug form: LIQ, Q6H, Dosing Weight 81.818, kg, PRN Itching, Start date: 04/14/15 23:45:00, Duration: 30 day, Stop date: 05/14/15 23 :44:00 Notes: (Same as: Benadryl) Start Date: 04/14/15 Stop Date: 04/18/15 Status: Discontinueddocusate 100 mg, 1 cap, Route: PO, Drug form: CAP, BID, Dosing Weight 81.818, kg, Start date: 04/15/15 9:00:00, Duration: 30 day, Stop date: 05/14/15 17:00:00 Notes: (Same as: Colace) (Do Not Crush) Start Date: 04/15/15 Stop Date: 04/18/15 Status: Discontinueddronabinol 5 mg, 1 cap, Route: PO, Drug form: CAP, [id number], Dosing Weight 81.818, kg, Start date: 04/16/15 13:00:00, Duration: 30 day, Stop date: 05/16/15 1:00:00 Notes: (Same as: Marinol) Non-Formulary Drug. Start Date: 04/16/15 Stop Date: 04/18/15 Status: DiscontinuedfentaNYL 100 microgram, Route: IVP, ONCE, Dosing Weight 81.818, kg, Priority: STAT, Start date: 04/14/15 16:54:00, Stop date: 04/14/15 16:54:00 Start Date: 04/14/15 Stop Date: 04/14/15 Status: CompletedfentaNYL 100 microgram, Route: IV, ONCE, Dosing Weight 81.818, kg, Start date: 04/14/15 20:32:00, Stop date: 04/14/15 20:32:00 Start Date: 04/14/15 Stop Date: 04/14/15 Status: Completedgabapentin 400 mg, 1 cap, Route: PO, Drug form: CAP, Q8Hnow, Dosing Weight 81.818, kg, Start date: 04/15/15 0:00:00, Stop date: 05/14/15 16:00:00 Notes: (Same as: Neurontin) Start Date: 04/15/15 Stop Date: 04/16/15 Status: Discontinuedgabapentin 600 mg, 2 cap, Route: PO, Drug form: CAP, Q8H, Dosing Weight 81.818, kg, Start date: 04/16/15 16:00:00, Duration: 30 day, Stop date: 05/16/15 8:00:00 Notes: (Same as: Neurontin) Start Date: 04/16/15 Stop Date: 04/18/15 Status: Discontinuedgabapentin 600 mg oral tablet 600 mg=1 tab, PO, Q8H, # 90 tab, 0 Refill(s) Start Date: 04/18/15 Stop Date: 05/18/15 Status: Orderedhydromorphone 0.5 mg, 0.25 mL, Route: IVP, Drug form: INJ, Q5Min, Dosing Weight 81.818, kg, PRN Pain Score 7-10, Start date: 04/15/15 9:05:00, Duration: 4 doses or times, Stop date: 04/16/15 0:00:00 Notes: Same as: Dilaudid Start Date: 04/15/15 Stop Date: 04/15/15 Status: CompletedketAMINE 20 mg, Route: IV, ONCE, Dosing Weight 81.818, kg, Start date: 04/14/15 21:05:00 , Stop date: 04/14/1521:05:00 Start Date: 04/14/15 Stop Date: 04/14/15 Status: CompletedketAMINE 80 mg, Route: IVP, ONCE, Dosing Weight 81.818, kg, Priority: STAT, Start date: 04/14/15 20:32:00, Stop date: 04/14/15 20:32:00 Start Date: 04/14/15 Stop Date: 04/14/15 Status: CompletedketAMINE 20 mg, Route: IV, ONCE, Dosing Weight 81.818, kg, Start date: 04/14/15 21:08:00 , Stop date: 04/14/1521:08:00 Start Date: 04/14/15 Stop Date: 04/14/15 Status: Completedmethadone 5 mg, 1 tab, Route: PO, Drug form: TAB, Q12H, Dosing Weight 81.818, kg, Start date: 04/17/15 20:00:00, Duration: 30 day, Stop date: 05/17/15 9:00:00 Notes: (Same as: Dolophine) Start Date: 04/17/15 Stop Date: 04/18/15 Status: Discontinuedmethadone 5 mg, 1 tab, Route: PO, Drug form: TAB, Q8H, Dosing Weight 81.818, kg, Start date: 04/16/15 16:00:00, Duration: 30 day, Stop date: 05/16/15 8:00:00 Notes: (Same as: Dolophine) Start Date: 04/16/15 Stop Date: 04/17/15 Status: Discontinuedmethadone 10 mg, 1 tab, Route: PO, Drug form: TAB, ONCE, Dosing Weight 81.818, kg, Priority: NOW, Start date: 04/16/15 11:30:00, Stop date: 04/16/15 11:30:00 Notes: (Same as: Dolophine) Start Date: 04/16/15 Stop Date: 04/16/15 Status: Completedmethocarbamol 500 mg oral tablet 1,000 mg=2 tab, PO, Q8H, X 14 day, # 80 tab, 0 Refill(s) Start Date: 04/18/15 Stop Date: 05/02/15 Status: OrderedMiraLax 17 gm, 1 pkt, Route: PO, Drug form: PWDR, Daily, Dosing Weight 81.818, kg, Start date: 04/17/15 17:00:00, Duration: 30 day, Stop date: 05/17/15 9:00:00 Notes: Dissolve in 8 oz of water or juice.(Same as: Miralax) Start Date: 04/17/15 Stop Date: 04/18/15 Status: Discontinuedmorphine Sulfate 2 mg, 1 mL, Route: IVP, Drug form: INJ, Q4H, Dosing Weight 81.818, kg, PRN Pain Score 7-10, Start date: 04/14/15 23:45:00, Duration: 30 day, Stop date: 23:44:00 Notes: (Same as:MORPhine Sulfate) Start Date: 04/14/15 Stop Date: 04/15/15 Status: DiscontinuedNorco 10/325 oral tablet 1 tab, PO, Q4H, PRN for pain Start Date: 04/15/15 Stop Date: 04/18/15 Status: DiscontinuedNorco 10/325 oral tablet 1 tab, Route: PO, Drug Form: TAB, Dosing Weight 81.818, kg, ONCE, STAT, Start date: 04/14/15 17:28:00, Stop date: 04/14/15 17:28:00 Start Date: 04/14/15 Stop Date: 04/14/15 Status: CompletedNorco 10/325 oral tablet 1-2 tab, PO, Q4H, PRN for pain, X 5 day, # 30 tab, 0 Refill(s) Start Date: 04/18/15 Stop Date: 04/23/15 Status: OrderedNorco 10/325 oral tablet 1 tab, Route: PO, Drug Form: TAB, Dosing Weight 81.818, kg, Q4H, PRN Pain Score 4-6, Start date: 04/18/15 11:44:00, Duration: 30 day, Stop date: 05/18/15 11:43: 00 Notes: Do not exceed 4gm/day of acetaminophen. (Same as: [place] 325/10) Start Date: 04/18/15 Stop Date: 04/18/15 Status: DiscontinuedNorco 10/325 oral tablet 2 tab, Route: PO, Drug Form: TAB, Dosing Weight 81.818, kg, Q4H, PRN Pain Score 7-10, Start date: 04/18/15 11:44:00, Duration: 30 day, Stop date: 05/18/15 11:43 :00 Notes: Do not exceed 4gm/day of acetaminophen. (Same as: [place] 325/10) Start Date: 04/18/15 Stop Date: 04/18/15 Status: Discontinuednormal saline 0.9% IV 1,000 mL 1,000 mL, Rate: 100 ml/hr, Infuse over: 10 hr, Route: IV, Dosing Weight 81.818 kg, Total Volume: 1,000, Start date: 04/14/15 17:28:00, Duration: 30 day, Stop date: 05/14/15 17:27:00 Start Date: 04/14/15 Stop Date: 04/18/15 Status: Discontinuedondansetron 4 mg, 2 mL, Route: IVP, Drug form: INJ, Q8H, Dosing Weight 81.818, kg, PRN Nausea & Vomiting, Start date: 04/14/15 23:45:00, Duration: 30 day, Stop date: 05/14/15 23:44:00 Notes: (Same as: Rika) MEDICATION WASTE Product Size: 4 mgProduct Wasted: ___ mg Start Date: 04/14/15 Stop Date: 04/18/15 Status: Discontinuedondansetron 4 mg, 2 mL, Route: IVP, Drug form: INJ, ONCE, Dosing Weight 81.818, kg, PRN Nausea & Vomiting, Start date: 04/15/15 9:05:00 Notes: (Same as: Rika) MEDICATION WASTE Product Size: 4 mgProduct Wasted: ___ mg Start Date: 04/15/15 Stop Date: 04/15/15 Status: DiscontinuedoxyCODONE 5 mg immediate release 10 mg, 2 tab, Route: PO, Drug form: TAB, Q4H, Dosing Weight 81.818, kg, PRN Pain Score 7-10, Start date: 04/14/15 23:45:00, Duration: 30 day, Stop date: 23:44:00 Notes: (Same as: Roxicodone) Start Date: 04/14/15 Stop Date: 04/18/15 Status: DiscontinuedoxyCODONE 5 mg immediate release 5 mg, 1 tab, Route: PO, Drug form: TAB, Q4H, Dosing Weight 81.818, kg, PRN Pain Score 4-6, Start date: 04/14/15 23:45:00, Duration: 30 day, Stop date: 05/14/15 23:44:00 Notes: (Same as: Roxicodone) Start Date: 04/14/15 Stop Date: 04/18/15 Status: DiscontinuedoxyCODONE 5 mg/5 mL oral solution 10 mg, 10 mL, Route: NG, Drug form: LIQ, Q4H, Dosing Weight 81.818, kg, PRN Pain Score 7-10, Start date: 04/15/15 9:05:00, Duration: 30 day, Stop date: 9:04:00 Notes: (Same as: 'Roxicodone) Start Date: 04/15/15 Stop Date: 04/15/15 Status: Discontinuedpropofol 20 mg, Route: IV, ONCE, Dosing Weight 81.818, kg, Start date: 04/14/15 21:07:00 , Stop date: 04/14/1521:07:00 Start Date: 04/14/15 Stop Date: 04/14/15 Status: Completedpropofol 80 mg, Route: IVP, ONCE, Dosing Weight 81.818, kg, Priority: STAT, Start date: 04/14/15 20:33:00, Stop date: 04/14/15 20:33:00 Start Date: 04/14/15 Stop Date: 04/14/15 Status: Completedpropofol 20 mg, Route: IV, ONCE, Dosing Weight 81.818, kg, Start date: 04/14/15 21:05:00 , Stop date: 04/14/1521:05:00 Start Date: 04/14/15 Stop Date: 04/14/15 Status: CompletedRestoril 7.5 mg, 1 cap, Route: PO, Drug form: CAP, ONCE, Dosing Weight 81.818, kg, PRN Sleep, Start date: 04/15/15 21:16:00, Stop date: 05/15/15 21:15:00 Notes: (Same As: Restoril) Start Date: 04/15/15 Stop Date: 04/15/15 Status: CompletedRobaxin 1,000 mg, 2 tab, Route: PO, Drug form: TAB, Q8H, Dosing Weight 81.818, kg, Priority: NOW, Start date: 04/16/15 13:04:00, Duration: 30 day, Stop date: 05/16 6:00:00 Notes: (Same as:Robaxin) Start Date: 04/16/15 Stop Date: 04/18/15 Status: DiscontinuedSaline Flush 0.9% 10 mL, Route: IVP, Drug Form: INJ, Dosing Weight 81.818, kg, PRN, PRN Line Flush , Start date: 04/14/15 16:59:00, Duration: 30 day, Stop date: 05/14/15 16:58:00 Notes: (Same as: BD Posiflush) Start Date: 04/14/15 Stop Date: 04/18/15 Status: Discontinuedsenna 17.2 mg, 2 tab, Route: PO, Drug Form: TAB, Dosing Weight 81.818, kg, Bedtime, Start date: 04/15/15 21:00:00, Duration: 30 day, Stop date: 05/14/15 21:00:00 Notes: (Same as: Senokot) Start Date: 04/15/15 Stop Date: 04/18/15 Status: Discontinuedtramadol 100 mg, 2 tab, Route: PO, Drug form: TAB, Q6Hnow, Dosing Weight 81.818, kg, Start date: 04/15/15 0:00:00, Duration: 30 day, Stop date: 05/14/15 18:00:00 Notes: Not to exceed 400mg/day. (Same As: Ultram) Start Date: 04/15/15 Stop Date: 04/18/15 Status: Discontinuedtramadol 100 mg, Route: PO, Drug form: TAB, ONCE, Dosing Weight 81.818, kg, PRN Pain Score 4-6, Start date: 04/15/15 9:05:00 Start Date: 04/15/15 Stop Date: 04/15/15 Status: Completedtramadol 50 mg oral tablet 100 mg=2 tab, PO, Q6H, X 7 day, # 50 tab, 0 Refill(s) Start Date: 04/18/15 Stop Date: 04/25/15 Status: Orderedtrazodone 50 mg oral tablet 50 mg, 1 tab, Route: PO, Drug form: TAB, Bedtime, Dosing Weight 81.818, kg, Start date: 04/16/15 21:00:00, Duration: 7 day, Stop date: 04/22/15 21:00:00 Notes: (Same As: Desyrel) Start Date: 04/16/15 Stop Date: 04/18/15 Status: DiscontinuedTylenol 1,000 mg, 100 mL, Route: IV, Drug form: INJ, ONCE, Dosing Weight 81.818, kg, Start date: 04/14/15 20:34:00, Stop date: 04/14/15 20:34:00 Notes: Infuse over 15 minutesDo not exceed 4gm/day of acetaminophen MEDICATION WASTE ProductSize: 1000 mgProduct Wasted: ___ mg Start Date: 04/14/15 Stop Date: 04/14/15 Status: Completed Results BLOOD BANK RESULTS Most recent to oldest [Reference Range]: 1 2 3 ABO/Rh A POS *Unknown* (04/14/15 5:37 PM) Antibody Scrn Negative (04/14/15 5:37 PM) Platelet product Product available (04/15/15 6:30 AM) RBC product Product available Product available (04/15/15 6:43 AM) (04/15/15 1:25 AM) ELECTROLYTES Most recent to oldest 1 2 3 [Reference Range]: Sodium Lvl [135-145 mEq/L] 140 mEq/L 141 mEq/L 136 mEq/L (04/16/15 1:42 AM) (04/15/15 6:06 AM) (04/14/15 5:32 PM) Potassium Lvl [3.5-5.1 3.7 mEq/L 3.8 mEq/L 3.6 mEq/L mEq/L] (04/16/15 1:42 AM) (04/15/15 6:06 AM) (04/14/15 5:32 PM) Chloride Lvl [95-109 mEq/L] 108 mEq/L 110 mEq/L 105 mEq/L (04/16/15 1:42 AM) *HI* (04/14/15 5:32 PM) (04/15/15 6:06 AM) CO2 [24-32 mEq/L] 24 mEq/L 23 mEq/L 26 mEq/L (04/16/15 1:42 AM) *LOW* (04/14/15 5:32 PM) (04/15/15 6:06 AM) AGAP [10.0-20.0 mEq/L] 11.7 mEq/L 11.8 mEq/L 8.6 mEq/L (04/16/15 1:42 AM) (04/15/15 6:06 AM) *LOW* (04/14/15 5:32 PM) CHEM PANEL Most recent to oldest 1 2 3 [Reference Range]: Creatinine Lvl [0.50-1.40 0.59 mg/dL 0.47 mg/dL 0.56 mg/dL mg/dL] (04/16/15 1:42 AM) *LOW* (04/14/15 5:32 PM) (04/15/15 6:06 AM) eGFR 123 mL/min/1.73m2 1 133 mL/min/1.73m2 2 126 mL/min/1.73m2 3 *NA* *NA* *NA* (04/16/15 1:42 AM) (04/15/15 6:06 AM) (04/14/15 5:32 PM) BUN [7-22 mg/dL] 5 mg/dL 4 mg/dL 8 mg/dL *LOW* *LOW* (04/14/15 5:32 PM) (04/16/15 1:42 AM) (04/15/15 6:06 AM) Glucose Lvl [70-99 mg/dL] 107 mg/dL 111 mg/dL 99 mg/dL *HI* *HI* (04/14/15 5:32 PM) (04/16/15 1:42 AM) (04/15/15 6:06 AM) Calcium Lvl [8.5-10.5 7.8 mg/dL 8.1 mg/dL 8.4 mg/dL mg/dL] *LOW* *LOW* *LOW* (04/16/15 1:42 AM) (04/15/15 6:06 AM) (04/14/15 5:32 PM) 1Result Comment: The eGFR is calculated using [...] eGFR should be multiplied by the estimated BMI.3Result Comment: The eGFR is calculated using the [...] eGFR should be multiplied by the estimated BMI.ENDOCRINOLOGY Most recent to oldest [Reference Range]: 1 2 3 hCG Tot <1 mIU/mL *NA* (04/14/15 9:42 PM) URINE CHEM Most recent to oldest [Reference Range]: 1 2 3 U Preg [Negative] Negative (04/14/15 10:01 PM) HEMATOLOGY Most recent to oldest 1 2 3 [Reference Range]: WBC [3.7-10.4 K/CMM] 6.6 K/CMM 5.5 K/CMM 5.7 K/CMM (04/17/15 3:09 PM) (04/16/15 1:42 AM) (04/15/15 6:06 AM) RBC [4.20-5.40 M/CMM] 3.12 M/CMM 2.93 M/CMM 2.82 M/CMM *LOW* *LOW* *LOW* (04/17/15 3:09 PM) (04/16/15 1:42 AM) (04/15/15 6:06 AM) Hgb [12.0-16.0 g/dL] 8.2 g/dL 8.1 g/dL 6.7 g/dL 1 *LOW* *LOW* *CRIT* (04/17/15 3:09 PM) (04/16/15 1:42 AM) (04/15/15 11:43 AM) Hct [36.0-48.0 %] 26.8 % 25.2 % 22.7 % *LOW* *LOW* *LOW* (04/17/15 3:09 PM) (04/16/15 1:42 AM) (04/15/15 11:43 AM) MCV [80.0-98.0 fL] 85.8 fL 86.0 fL 82.2 fL (04/17/15 3:09 PM) (04/16/15 1:42 AM) (04/15/15 6:06 AM) MCH [27.0-31.0 pg] 26.3 pg 27.6 pg 24.3 pg *LOW* (04/16/15 1:42 AM) *LOW* (04/17/15 3:09 PM) (04/15/15 6:06 AM) MCHC [32.0-36.0 g/dL] 30.7 g/dL 32.1 g/dL 29.5 g/dL *LOW* (04/16/15 1:42 AM) *LOW* (04/17/15 3:09 PM) (04/15/15 6:06 AM) RDW [11.5-14.5 %] 18.4 % 18.2 % 18.5 % *HI* *HI* *HI* (04/17/15 3:09 PM) (04/16/15 1:42 AM) (04/15/15 6:06 AM) Platelet [133-450 K/CMM] 108 K/CMM 91 K/CMM 108 K/CMM *LOW* *LOW* *LOW* (04/17/15 3:09 PM) (04/16/15 1:42 AM) (04/15/15 6:06 AM) MPV [7.4-10.4 fL] 9.4 fL 9.3 fL 9.0 fL (04/17/15 3:09 PM) (04/16/15 1:42 AM) (04/15/15 6:06 AM) Segs [45.0-75.0 %] 69.5 % 64.6 % 79.3 % (04/17/15 3:09 PM) (04/16/15 1:42 AM) *HI* (04/15/15 6:06 AM) Lymphocytes [20.0-40.0 %] 18.8 % 19.0 % 11.1 % *LOW* *LOW* *LOW* (04/17/15 3:09 PM) (04/16/15 1:42 AM) (04/15/15 6:06 AM) Monocytes [2.0-12.0 %] 9.1 % 14.2 % 8.2 % (04/17/15 3:09 PM) *HI* (04/15/15 6:06 AM) (04/16/15 1:42 AM) Eosinophils [0.0-4.0 %] 2.0 % 2.0 % 1.1 % (04/17/15 3:09 PM) (04/16/15 1:42 AM) (04/15/15 6:06 AM) Basophils [0.0-1.0 %] 0.6 % 0.2 % 0.3 % (04/17/15 3:09 PM) (04/16/15 1:42 AM) (04/15/15 6:06 AM) Segs-Bands # [1.5-8.1 4.6 K/CMM 3.6 K/CMM 4.5 K/CMM K/CMM] (04/17/15 3:09 PM) (04/16/15 1:42 AM) (04/15/15 6:06 AM) Lymphocytes # [1.0-5.5 1.3 K/CMM 1.1 K/CMM 0.6 K/CMM K/CMM] (04/17/15 3:09 PM) (04/16/15 1:42 AM) *LOW* (04/15/15 6:06 AM) Monocytes # [0.0-0.8 K/CMM] 0.6 K/CMM 0.8 K/CMM 0.5 K/CMM (04/17/15 3:09 PM) (04/16/15 1:42 AM) (04/15/15 6:06 AM) Eosinophils # [0.0-0.5 0.1 K/CMM 0.1 K/CMM 0.1 K/CMM K/CMM] (04/17/15 3:09 PM) (04/16/15 1:42 AM) (04/15/15 6:06 AM) PT [12.0-14.7 seconds] 14.4 seconds (04/14/15 9:42 PM) INR [0.85-1.17] 1.09 (04/14/15 9:42 PM) Rapid TEG Sample Type Citrated Whole Blood (04/14/15 5:32 PM) ACT (TEG) [86-118 seconds] 97 seconds (04/14/15 5:32 PM) Split Point 0.3 minutes *NA* (04/14/15 5:32 PM) R-time [0.4-0.7 minutes] 0.5 minutes (04/14/15 5:32 PM) K-time [0.6-2.3 minutes] 4.1 minutes *HI* (04/14/15 5:32 PM) Angle [64-80 degrees] 74 degrees (04/14/15 5:32 PM) Max Amp [52-71 mm] 33 mm *LOW* (04/14/15 5:32 PM) G-value [5.0-11.6 K d/sc] 2.4 K d/sc *LOW* (04/14/15 5:32 PM) Estimated % Lysis [0.0-7.5 0.0 % %] (04/14/15 5:32 PM) 1Result Comment: Critical Result(s) called to INEZ GARCIA 12: 08 at _ by_SFS. Read back OK. Immunizations No data available for this section Procedures Procedure Date Related Diagnosis Body Site section Social History Social History Type Response Smoking Status Never smoker; Exposure to Tobacco Smoke None; Cigarette Smoking Last 365 Days No; Reg Smoking Cessation Counseling No Assessment and Plan Extracted from: Title: Clinical Document Author: Harmeet Vuong MD Date: 04/18/15 Hematology Daily Progress Note Patient Room: [address] SEKOU CAMPBELL 29y (: 1985) F Attending: Arturo Gunter MD Service: Internal Medicine Subjective: left lower extremity pain well controlled, no bleeding Objective: Vitals Tmp(F) Pulse BP RR SpO2 FIO2 04/18 16:24 98.6 83 111/61 20 --- --- 04/18 11:35 98.8 76 112/64 18 96 --- 04/18 07:51 98.8 76 115/60 18 97 --- 04/18 03:59 98.1 77 110/66 18 98 21% 04/17 23:00 98.1 90 104/73 18 98 21% 24 Hr Tmax: 98.8F (37.11c) at 04/18 11:35 Vital Signs are the last 5 in the past 48 hours. Date Wt(kg) Wt(lb) Ht(cm) Ht(in) Method 04/15 81.82 180.00 167.70 66.02 Estimated 04/14 (initial) 81.82 180.00 Measured 04/14 167.64 66.00 Stated General- Well-appearing female in NAD HEENT- PERRL, EOMI, sclerae anicteric, oropharynx clear without any noted lesions CVS- RRR, S1/S2 present, no m/g/r Chest- CTAB Abdomen- Soft, ND/NT, +BS, no hepatosplenomegaly palpated Extremities- LLE with external fixator in place, s/p surgery, edematous but no obvious signs of bleeding through the gauze Skin- No rash Neuro- Nonfocal Psych- Normal affect Data: no new labs today Assessment/Plan: 29 y.o. 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 Lack of this causes a coagulopathy as no fibrin or formal clot can form. - Please discontinue Amicar 3g (12cc) q8h, she has received it for 3 days after her surgery. - Please give 1 jumbopack of platelets prior to any planned surgical procedure - If excess bleeding occurs, please call Hematology. Will need to dose with Factor VIIa 30mcg/kg IV x1, but call prior to giving - At time of discharge, please make follow up with her primary Business Analyst Sales Operations ( Matthias Rothman) [phone], she is also requesting that this phone number be put on her discharge paperwork - At time of discharge, patient will need a script for Amicar 3g q6-8h PRN bleeding, 60 tablets (or enough to last her until she sees Dr. Rothman in clinic ) # Iron Deficiency Anemia - Hx of being on oral iron, but varied compliance - PO Ferrous Sulfate 325mg BID # DVT Prophylaxis - Please do not give as patient is coagulopathic and at high risk for bleeding Harmeet Vuong MD PHD Hematology/Oncology Fellow [facility] [place] Extracted from: Title: APMS Consult Note Author: Michael Milner MD Date: Patient: SEKOU CAMPBELL Age: 29 years Sex: Female : 1985 Associated Diagnoses: None Author: Michael Milner MD Basic Information Referral source Reason for consultation: Complex Acute Pain Chief Complaint Pt resting in bed with 8/10 L ankle pain History of Present Illness 29 y/o female PMH of Glanzmann thrombasthenia presented after mechanical fall found to have left distal tib/fib fracture. Had ex-fix placemennt on 04/15 but continues to have uncontrolled pain in her an kle. APMS on board to assist with pain management. Histories Past Medical History: Resolved Cholecystitis ([id number]): Resolved. Glanzmann thromboasthenia ([id number]): Resolved. Hepatitis C ([id number]): Resolved. Family History: High blood pressure Father Ovarian cancer 31-JAN-2015 22:55:54<$> Mother Procedure history: section ([id number]). Social History Social & Psychosocial Habits Tobacco 04/14/2015 Use: Never smoker Exposure to Tobacco Smoke None Cigarette Smoking Last 365 Days No Reg Smoking Cessation Counseling No . Health Status Allergies: Allergic Reactions (All) Severity Not Documented Aspirin- No reactions were documented. Iron- No reactions were documented. NSAIDs- No reactions were documented., Allergies (3) Active Reaction aspirin None Documented Iron None Documented NSAIDs None Documented Current medications: (Selected) Inpatient Medications Ordered Amicar + Sodium Chloride 0.9% IV 150 mL: 3 gm, 12 mL, 54 ml/hr, IVPB, Q8H Dilaudid: 1 mg, 0.5 mL, IV, Q4H, PRN: Pain Score 7-10 Robaxin: 1,000 mg, PO, Q8H Saline Flush 0.9%: 10 mL, IVP, PRN, PRN: Line Flush acetaminophen: 1,000 mg, 2 tab, PO, Q6H diphenhydrAMINE: 12.5 mg, 5 mL, PO, Q6H, PRN: Itching docusate: 100 mg, 1 cap, PO, BID dronabinol: 5 mg, 1 cap, PO, [id number] gabapentin: 600 mg, 2 cap, PO, Q8H methadone: 5 mg, 1 tab, PO, Q8H normal saline 0.9% IV 1,000 mL: 100 ml/hr, IV, Stop: 05/14/15 17:27:00 ondansetron: 4 mg, 2 mL, IVP, Q8H, PRN: Nausea & Vomiting oxyCODONE 5 mg immediate release: 10 mg, 2 tab, PO, Q4H, PRN: Pain Score 7-10 oxyCODONE 5 mg immediate release: 5 mg, 1 tab, PO, Q4H, PRN: Pain Score 4-6 senna: 17.2 mg, 2 tab, PO, Bedtime tramadol: 100 mg, 2 tab, PO, Q6Hnow trazodone 50 mg oral tablet: 50 mg, 1 tab, PO, Bedtime Documented Medications Documented Amicar: 1 gm, PO, Q6H, 0 Refill(s) [place] 10/325 oral tablet: 1 tab, PO, Q4H, PRN: for pain, Medications (17) Active Scheduled: (10) acetaminophen 500 mg TAB 1,000 mg 2 tab, PO, Q6H aminocaproic acid INJ + sodium chloride 0.9% INJ 150 mL 3 gm 12 mL, IVPB, Q8H docusate sodium 100 mg CAP 100 mg 1 cap, PO, BID dronabinol 5 mg CAP 5 mg 1 cap, PO, [id number] gabapentin 300 mg CAP 600 mg 2 cap, PO, Q8H methadone 5 mg TAB 5 mg 1 tab, PO, Q8H methocarbamol 1,000 mg, PO, Q8H senna 8.6 mg TAB 17.2 mg 2 tab, PO, Bedtime traMADol 50 mg TAB 100 mg 2 tab, PO, Q6Hnow trazodone 50 mg TAB 50 mg 1 tab, PO, Bedtime Continuous: (1) sodium chloride 0.9% 1000 ml INJ 1,000 mL 1,000 mL, IV, 100 ml/hr PRN: (6) diphenhydrAMINE 12.5 mg/5 ml LIQ 5ml 12.5 mg 5 mL, PO, Q6H HYDROmorphone 2mg/ml 1ml carpuject Inj 1 mg 0.5 mL, IV, Q4H ondansetron 4 mg/2ml INJ VL 4 mg 2 mL, IVP, Q8H oxyCODONE IR 5 mg TAB 5 mg 1 tab, PO, Q4H oxyCODONE IR 5 mg TAB 10 mg 2 tab, PO, Q4H sodium chloride 0.9% 5 ml flush syr BD 10 mL, IVP, PRN Problem list: No qualifying data available Review of Systems Constitutional: Negative. Cardiovascular: Negative. Ear/Nose/Mouth/Throat: Negative. Respiratory: Negative. Gastrointestinal: Negative. Musculoskeletal: Negative except as documented in history of present illness. Neurologic: Negative. Psychiatric: Negative. Endocrine: Negative. Hematology/Lymphatics: Negative except as documented in history of present illness. Physical Examination VS/Measurements Measurements from flowsheet : Measurements 04/15/2015 01:19 Heparin Dosing Weight (kg) 68.34 04/15/2015 01:18 Height 167.7 cm Height Collection Method Stated Weight 81.818 kg Dosing Weight Difference Percent 0 % Dosing Weight Collection Method Estimated Body Surface Area 1.9523 m2 Body Mass Index 29.09 m2 , Vital Signs (last 24 hrs) Last Charted Temp Oral 98.3 DegF (APR 16 11:18) Heart Rate Peripheral 63 bpm (APR 16 11:18) Resp Rate 18 BRMIN (APR 16 11:18) SBP 129 mmHg (APR 16 11:18) DBP 70 mmHg (APR 16 11:18) General: Alert and oriented. HENT: Oral mucosa is moist. Respiratory: Lungs are clear to auscultation. Cardiovascular: Normal rate, Regular rhythm. Gastrointestinal: Soft, Non-tender. Musculoskeletal L ankle ex-fix . Neurologic: Alert, Oriented, Normal sensory, No focal deficits. Review / Management Results review: Labs (Last four charted values) WBC 5.5 (APR 16) 5.7 (APR 15) 9.0 (APR 14) Hgb L 8.1 (APR 16) C 6.7 (APR 15) C 6.8 (APR 15) L 7.4 (APR 14 ) Hct L 25.2 (APR 16) L 22.7 (APR 15) L 23.2 (APR 15) L 24.3 ( APR 14) Plt L 91 (APR 16) L 108 (APR 15) 137 (APR 14) Na 140 (APR 16) 141 (APR 15) 136 (APR 14) K 3.7 (APR 16) 3.8 (APR 15) 3.6 (APR 14) CO2 24 (APR 16) L 23 (APR 15) 26 (APR 14) Cl 108 (APR 16) H 110 (APR 15) 105 (APR 14) Cr 0.59 (APR 16) L 0.47 (APR 15) 0.56 (APR 14) BUN L 5 (APR 16) L 4 (APR 15) 8 (APR 14) Glucose Random H 107 (APR 16) H 111 (APR 15) 99 (APR 14) Ca L 7.8 (APR 16) L 8.1 (APR 15) L 8.4 (APR 14) PT 14.4 (APR 14) INR 1.09 (APR 14) . Chest x-ray results ECG interpretation Impression and Plan Diagnosis Orders Education and Follow-up: Counseled: Regarding treatment, Regarding medications. 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 Had ex-fix placement on 04/15 but continues to have uncontrolled pain in her ankle. Plan: multimodal analgesic therapy continue tramadol 100mg PO q6h change acetaminophen IV to 1000mg PO q6h increase gabapentin 600mg PO q8h add robaxin 1000mg PO q8h add methadone 5mg PO q8h APMS will follow. please call [phone] for questions Addendum by Sharad Hong Hemu on TEACHING PHYSICIAN ADDENDUM: I saw and personally examined this patient and discussed the plan of care with this resident. I have reviewed the note below and agree with the history, examination findings and the plan of care. 04/16/2015 15:22 Sharad Hong MD Extracted from: Title: Hospitalist History and Physical Author: Marquez Cano MD Date: Assessment/Plan 1.Fracture of left tibia and fibula NPO for planned surgical intervention with ortho, NWB LLE 2.Acute pain due to trauma start scheduled tylenol, gabapentin, tramadol, and prn oxycodone and IV morphine 3.Glanzmann thrombasthenia spoke with hematology are recommending continue amicar 3gm q8hrs, and transfuse 12 pack platelets prior to surgery 4.Chronic blood loss anemia due to platelet dysfunction and heavy menstrual bleeding, continue to monitor and transfuse prn, no overt bleeding at this time Orders: acetaminophen, 1,000 mg, 100 mL, Route: IVPB, Drug form: INJ, Q6Hnow , Dosing Weight 81.818, kg, Start date: 04/15/15 0:00:00, Duration: 30 day, Stop date: 05/14/15 18:00:00 diphenhydrAMINE, 12.5 mg, 5 mL, Route: PO, Drug form: LIQ, Q6H, Dosing Weight 81.818, kg, PRN Itching, Start date: 04/14/15 23:45:00, Duration: 30 day , Stop date: 05/14/15 23:44:00 docusate, 100 mg, 1 cap, Route: PO, Drug form: CAP, BID, Dosing Weight 81.818 , kg, Start date: 04/15/15 9:00:00, Duration: 30 day, Stop date: 05/14/15 17:00: 00 gabapentin, 300 mg, 1 cap, Route: PO, Drug form: CAP, Q8Hnow, Dosing Weight 81.818, kg, Start date: 04/15/15 0:00:00, Duration: 30 day, Stop date: 05/14/15 16:00:00 morphine Sulfate, 2 mg, 1 mL, Route: IVP, Drug form: INJ, Q4H, Dosing Weight 81.818, kg, PRN Pain Score 7-10, Start date: 04/14/15 23:45:00, Duration: 30 day , Stop date: 05/14/15 23:44:00 ondansetron, 4 mg, 2 mL, Route: IVP, Drug form: INJ, Q8H, Dosing Weight 81.818, kg, PRN Nausea & Vomiting, Start date: 04/14/15 23:45:00, Duration: 30 day, Stop date: 05/14/15 23:44:00 oxyCODONE, 10 mg, 2 tab, Route: PO, Drug form: TAB, Q4H, Dosing Weight 81.818 , kg, PRN Pain Score 7-10, Start date: 04/14/15 23:45:00, Duration: 30 day, Stop date: 05/14/15 23:44:00 oxyCODONE, 5 mg, 1 tab, Route: PO, Drug form: TAB, Q4H, Dosing Weight 81.818 , kg, PRN Pain Score 4-6, Start date: 04/14/15 23:45:00, Duration: 30 day, Stop date: 05/14/15 23:44:00 senna, 17.2 mg, 2 tab, Route: PO, Drug Form: TAB, Dosing Weight 81.818, kg, Bedtime, Start date: 04/15/15 21:00:00, Duration: 30 day, Stop date: 05/14/15 21 :00:00 tramadol, 100 mg, 2 tab, Route: PO, Drug form: TAB, Q6Hnow, Dosing Weight 81.818, kg, Start date: 04/15/15 0:00:00, Duration: 30 day, Stop date: 05/14/15 18:00:00 Ambulation CDM Acute Pain/Anxiolytic Orders Notify MD Notify MD Notify MD Patient Education AC4 Platelet product order (1 Dose=6 Units) Prophylaxis no chemical ppx due to platelet dysfunction, continue with SCD to RLE Disposition Pending surgical intervention and further Ortho/heme recs Hospitalist is primary, pager [phone]
--- OUTSIDE RECORDS SUMMARY | 2018-08-09 17:09 | XMS REPORT | Summary of Care ---
:1985 Author Organization [facility] Address [address] [place] [id number]- Encounter HQ [email or web address]_[email or web address]) [phone] Date(s): 12/17/15 - 12/20/[address] Professional Services provided by [facility] [place] [address]- Discharge Disposition: Home or Self Care Attending Physician: Olivier Han MD Admitting Physician: Olivier Han MD Referring Physician: Oscar Hoyt MD Vital Signs Most recent to oldest [Reference 1 2 3 Range]: Height 167.64 cm 167.64 cm (12/18/15 1:07 AM) (12/17/15 7:14 PM) Temperature Oral [96.4-99.1 DegF] 98.7 DegF 98.2 DegF 97.8 DegF (12/20/15 11:33 AM) (12/20/15 8:24 AM) (12/20/15 4:15 AM) Blood Pressure [90-140/60-90 101/64 mmHg 103/72 mmHg 96/60 mmHg mmHg] (12/20/15 11:33 AM) (12/20/15 8:24 AM) (12/20/15 4:15 AM) Respiratory Rate [14-20 BRMIN] 18 BRMIN 18 BRMIN 18 BRMIN (12/20/15 11:33 AM) (12/20/15 8:24 AM) (12/20/15 4:15 AM) Peripheral Pulse Rate [60-100 71 bpm 60 bpm 71 bpm bpm] (12/20/15 11:33 AM) (12/20/15 8:24 AM) (12/20/15 4:15 AM) Weight 68.182 kg 65.909 kg (12/18/15 1:07 AM) (12/17/15 7:14 PM) Body Mass Index 24.26 m2 23.45 m2 (12/18/15 1:07 AM) (12/17/15 7:14 PM) Problem List Condition Effective Dates Status Health Status Informant Cholecystitis(Confirmed) Resolved Glanzmann thromboasthenia(Confirmed) Resolved Hepatitis C(Confirmed) Resolved Allergies, Adverse Reactions, Alerts Substance Reaction Severity Status aspirin Active Iron Active NSAIDs Active Medications acetaminophen 1,000 mg, 2 tab, Route: PO, Drug form: TAB, Q6H, Dosing Weight 65.909, kg, Start date: 12/17/15 23:11:00 CDT, Stop date: 01/17/16 0:00:00 CDT Notes: Max acetaminophen 4000 mg/day (4 gm/day). (Same as: Tylenol Extra Strength) Start Date: 12/17/15 Stop Date: 12/20/15 Status: DiscontinuedAmicar + sodium chloride 0.9% INJ 238 mL 3 gm, 12 mL, Route: IVPB, Drug form: INJ, Q8H, Dosing Weight 68.182, kg, Priority: NOW, Start date: 12/18/15 11:00:00 CDT, Duration: 3 day, Stop date: 10:00:00 CDT Notes: (Same as: Amicar) Start Date: 12/18/15 Stop Date: 12/20/15 Status: DiscontinuedAncef 2 gm, Route: IVPB, ONCE, Dosing Weight 68.182, kg, Start date: 12/18/15 10:22: 00 CDT, Duration: 1 doses or times, Stop date: 12/18/15 10:22:00 CDT, Surgical Prophylaxis Only; For patients < 120 kg Start Date: 12/18/15 Stop Date: 12/18/15 Status: CompletedANES flumazenil 0.2 mg, 2 mL, Route: IVP, Drug form: INJ, PRN, Dosing Weight 68.182, kg, PRN Benzodiazepine Reversal, Initial dose, Start date: 12/18/15 11:55:00 CDT, Stop date: 12/19/15 0:00:00 CDT Notes: (Same as: Romazicon) Start Date: 12/18/15 Stop Date: 12/18/15 Status: DiscontinuedANES HYDROmorphone 0.5 mg, 0.25 mL, Route: IVP, Drug form: INJ, Q5Min, Dosing Weight 68.182, kg, PRN Pain Score 7-10, Start date: 12/18/15 11:55:00 CDT, Duration: 4 doses or times, Stop date: 12/19/15 0:00:00 CDT Notes: Same as: Dilaudid Start Date: 12/18/15 Stop Date: 12/18/15 Status: DiscontinuedANES naloxone 0.4 mg, 1 mL, Route: IVP, Drug form: INJ, Q2MIN, Dosing Weight 68.182, kg, PRN Narcotic Reversal, Start date: 12/18/15 11:55:00 CDT, Duration: 8 doses or times , Stop date: 12/19/15 0:00:00 CDT Notes: Same as Narcan Start Date: 12/18/15 Stop Date: 12/18/15 Status: DiscontinuedANES ondansetron 4 mg, 2 mL, Route: IVP, Drug form: INJ, ONCE, Dosing Weight 68.182, kg, PRN Nausea & Vomiting, Start date: 12/18/15 11:55:00 CDT Notes: (Same as: Rika) MEDICATION WASTE Product Size: 4 mgProduct Wasted: ___ mg Start Date: 12/18/15 Stop Date: 12/18/15 Status: DiscontinuedANES oxyCODONE 5 mg, 1 tab, Route: PO, Drug form: TAB, Q4H, Dosing Weight 68.182, kg, PRN Pain Score 4-6, Start date: 12/18/15 11:55:00 CDT, Duration: 30 day, Stop date: 01/16 11:54:00 CDT Notes: (Same as: Roxicodone) Start Date: 12/18/15 Stop Date: 12/18/15 Status: DiscontinuedANES oxyCODONE 10 mg, 2 tab, Route: NG, Drug form: TAB, Q4H, Dosing Weight 68.182, kg, PRN Pain Score 7-10, Start date: 12/18/15 11:55:00 CDT, Stop date: 12/19/15 0:00:00 CDT Notes: (Same as: Roxicodone) Start Date: 12/18/15 Stop Date: 12/18/15 Status: Discontinuedcalcium gluconate + sodium chloride 0.9% INJ 100 mL 2,000 mg, 20 mL, Route: IVPB, ONCE, Dosing Weight 68.182, kg, Start date: 1:13:00 CDT, Stopdate: 12/18/15 1:13:00 CDT Notes: WASTE: F/P - Sink; E - Municipal Trash Bin Start Date: 12/18/15 Stop Date: 12/18/15 Status: Completedcalcium gluconate + sodium chloride 0.9% INJ 50 mL 1,000 mg, 10 mL, Route: IVPB, ONCE, Dosing Weight 68.182, kg, Start date: 7:46:00 CDT, Stopdate: 12/20/15 7:46:00 CDT Notes: WASTE: F/P - Sink; E - Municipal Trash Bin Start Date: 12/20/15 Stop Date: 12/20/15 Status: Completedcalcium gluconate 500 mg oral tablet 500 mg, 1 tab, Route: PO, Drug form: TAB, TID, Dosing Weight 68.182, kg, Start date: 12/19/15 13:00:00 CDT, Duration: 30 day, Stop date: 01/18/16 9:00:00 CDT Start Date: 12/19/15 Stop Date: 12/20/15 Status: Discontinuedcalcium gluconate 500 mg oral tablet 500 mg, 1 tab, Route: PO, Drug form: TAB, ONCE, Dosing Weight 68.182, kg, Start date: 12/18/15 16:40:00 CDT, Stop date: 12/18/15 16:40:00 CDT Start Date: 12/18/15 Stop Date: 12/18/15 Status: CompletedceFAZolin (SCIP) + sodium chloride 0.9% INJ 100 mL 2 gm, Route: IVPB, Drug form: INJ, Q8H, Dosing Weight 68.182, kg, Start date: 18:00:00 CDT,Duration: 24 hr, Stop date: 12/19/15 10:00:00 CDT Notes: (Same As: Ancef, Kefzol)Cefazolin FOR IV SET ONLY MEDICATION WASTE Product Size:1000 mgProduct Wasted: ___ mg Start Date: 12/18/15 Stop Date: 12/19/15 Status: CompletedCeleBREX 200 mg, 1 cap, Route: PO, Drug form: CAP, BID, Dosing Weight 68.182, kg, Priority: NOW, Start date: 12/19/15 16:25:00 CDT, Duration: 30 day, Stop date: 01/18/16 9:00:00 CDT Notes: NSAID. Please check indication. Not for seizure. (Same As: CeleBREX) Start Date: 12/19/15 Stop Date: 12/19/15 Status: DiscontinuedCepacol Sore Throat 15 mg-3.6 mg mucous membrane lozenge 1 lozenge, Route: MUCOUS MEM, Drug Form: ANDRZEJ, Dosing Weight 68.182, kg, Q2H, PRN Sore Throat, Start date: 12/20/15 5:36:00 CDT, Duration: 30 day, Stop date: 01/19/16 5:35:00 CDT Notes: Cepacol lozengesDispense 1 box=16 lozenges (Same As: Cepacol Lozenges) Start Date: 12/20/15 Stop Date: 12/20/15 Status: DiscontinuedDilaudid 0.5 mg, 0.25 mL, Route: IVP, Drug form: INJ, ONCE, Dosing Weight 65.909, kg, Priority: STAT, Start date: 12/17/15 20:58:00 CDT, Stop date: 12/17/15 20:58:00 CDT Notes: Same as: Dilaudid Start Date: 12/17/15 Stop Date: 12/17/15 Status: CompletedDilaudid 0.5 mg, Route: IVP, ONCE, Dosing Weight 65.909, kg, Priority: STAT, Start date: 12/17/15 20:58:00 CDT, Stop date: 12/17/15 20:58:00 CDT Start Date: 12/17/15 Stop Date: 12/17/15 Status: CompletedDilaudid 0.5 mg, 0.25 mL, Route: IVP, Drug form: INJ, ONCE, Dosing Weight 65.909, kg, Priority: STAT, Start date: 12/17/15 23:26:00 CDT, Stop date: 12/17/15 23:26:00 CDT Notes: Same as: Dilaudid Start Date: 12/17/15 Stop Date: 12/17/15 Status: Completeddocusate 100 mg, 1 cap, Route: PO, Drug form: CAP, BID, Dosing Weight 65.909, kg, Start date: 12/18/15 9:00:00 CDT, Duration: 30 day, Stop date: 01/16/16 17:00:00 CDT Notes: (Same as: Colace) (Do Not Crush) Start Date: 12/18/15 Stop Date: 12/20/15 Status: Discontinueddocusate sodium 100 mg oral capsule 100 mg=1 cap, PO, BID, # 28 cap, 0 Refill(s) Start Date: 12/20/15 Stop Date: 01/03/16 Status: Orderedferrous sulfate 325 mg, 1 tab, Route: PO, Drug form: ECTAB, Daily, Dosing Weight 68.182, kg, Start date: 12/19/15 14:30:00 CDT, Duration: 30 day, Stop date: 01/18/16 9:00: 00 CDT Notes: Give with food. "Do Not Crush" Start Date: 12/19/15 Stop Date: 12/20/15 Status: Discontinuedgabapentin 600 mg, 2 cap, Route: PO, Drug form: CAP, Q8Hnow, Dosing Weight 65.909, kg, Start date: 12/20/15 14:00:00 CDT, Duration: 30 day, Stop date: 01/19/16 6:00: 00 CDT Notes: (Same as: Neurontin) Start Date: 12/20/15 Stop Date: 12/20/15 Status: Discontinuedgabapentin 300 mg, 1 cap, Route: PO, Drug form: CAP, Q8Hnow, Dosing Weight 65.909, kg, Start date: 12/18/15 0:00:00 CDT, Duration: 30 day, Stop date: 01/16/16 16:00: 00 CDT Notes: (Same as: Neurontin) Start Date: 12/18/15 Stop Date: 12/20/15 Status: Discontinuedgabapentin 300 mg oral capsule 600 mg=2 cap, PO, Q8Hnow, # 42 cap, 0 Refill(s) Start Date: 12/20/15 Stop Date: 12/27/15 Status: Orderedheparin 5000 units/mL injectable solution 5,000 unit, Route: SUB-Q, Drug form: INJ, Q12H, Dosing Weight 68.182, kg, Start date: 12/19/15 21:00:00 CDT, Duration: 30 day, Stop date: 01/18/16 9:00:00 CDT Start Date: 12/19/15 Stop Date: 12/19/15 Status: CanceledKlonoPIN 0.5 mg, 1 tab, Route: PO, Drug form: TAB, Bedtime, Dosing Weight 65.909, kg, Start date: 12/18/15 2:00:00 CDT, Duration: 30 day, Stop date: 01/16/16 21:00: 00 CDT Notes: (Same As: KlonoPIN) Start Date: 12/18/15 Stop Date: 12/18/15 Status: DiscontinuedKlonoPIN PO, 0 Refill(s) Start Date: 12/18/15 Status: OrderedKlonoPIN 0.5 mg, 1 tab, Route: PO, Drug form: TAB, BID, Dosing Weight 68.182, kg, Start date: 12/18/15 17:00:00 CDT, Duration: 30 day, Stop date: 01/17/16 9:00:00 CDT Notes: (Same As: KlonoPIN) Start Date: 12/18/15 Stop Date: 12/20/15 Status: DiscontinuedLidoderm 5% topical film (patch) 1 patch, Route: TOP, Q24H, Drug form: FILM, Start date: 12/18/15 0:00:00 CDT, Duration: 30 day, Stopdate: 01/16/16 0:00:00 CDT Notes: Apply only once for up to 12 hours in [id number] period (12 hours on and 12 hours off).(Same as: Lidoderm)"Remove old patch before application of new patch" Start Date: 12/18/15 Stop Date: 12/18/15 Status: DiscontinuedLovenox 30 mg/0.3 mL subcutaneous solution 30 mg, SUB-Q, Q12H, X 21 day, # 42 syr, 0 Refill(s) Start Date: 12/20/15 Stop Date: 12/20/15 Status: DiscontinuedMarinol 5 mg, 1 cap, Route: PO, Drug form: CAP, BID, Dosing Weight 68.182, kg, Start date: 12/19/15 12:00:00CDT, Duration: 30 day, Stop date: 01/18/16 9:00:00 CDT Notes: (Same as: Marinol) Non-Formulary Drug. Start Date: 12/19/15 Stop Date: 12/20/15 Status: Discontinuedmelatonin 3 mg, 1 tab, Route: PO, Drug form: TAB, Bedtime, Dosing Weight 65.909, kg, PRN Insomnia, Start date:12/17/15 23:11:00 CDT, Duration: 30 day, Stop date: 23:10:00 CDT Notes: (Same as: Melatonin) Start Date: 12/17/15 Stop Date: 12/20/15 Status: Discontinuedmethocarbamol 1,000 mg, 2 tab, Route: PO, Drug form: TAB, Q8H, Dosing Weight 65.909, kg, Start date: 12/17/15 23:11:00 CDT, Stop date: 01/17/16 0:00:00 CDT Notes: (Same as:Robaxin) Start Date: 12/17/15 Stop Date: 12/20/15 Status: Discontinuedmorphine Sulfate 4 mg, 1 mL, Route: IVP, Drug form: INJ, Q4H, Dosing Weight 65.909, kg, PRN Pain Score 7-10, Start date: 12/17/15 23:11:00 CDT, Duration: 30 day, Stop date: 05/02 23:10:00 CDT Notes: (Same as:MORPhine Sulfate) Start Date: 12/17/15 Stop Date: 12/18/15 Status: Discontinuedmorphine Sulfate 4 mg, 1 mL, Route: IVP, Drug form: INJ, ONCE, Dosing Weight 65.909, kg, Priority : STAT, Start date: 12/17/15 20:23:00 CDT, Stop date: 12/17/15 20:23:00 CDT Notes: (Same as:MORPhine Sulfate) Start Date: 12/17/15 Stop Date: 12/17/15 Status: CompletedNorco 10/325 oral tablet 1 tab, Route: PO, Drug Form: TAB, Dosing Weight 68.182, kg, Q6H, PRN Pain Score 6-10, Start date: 12/20/15 13:57:00 CDT, Duration: 30 day, Stop date: 01/19/16 13:56:00 CDT Notes: Do not exceed 4gm/day of acetaminophen. (Same as: [place] 325/10) Start Date: 12/20/15 Stop Date: 12/20/15 Status: DiscontinuedNorco 5/325 oral tablet 1 tab, Route: PO, Drug Form: TAB, Dosing Weight 68.182, kg, Q4H, PRN Pain Score 1-3, Start date: 12/20/15 13:19:00 CDT, Duration: 30 day, Stop date: 01/19/16 13 :18:00 CDT Notes: (Same as: [place] 325/5) Do not exceed 4gm/day of acetaminophen. Start Date: 12/20/15 Stop Date: 12/20/15 Status: DiscontinuedNorco 5/325 oral tablet 1 tab, Route: PO, Drug Form: TAB, Dosing Weight 68.182, kg, Q4H, PRN Pain Score 1-5, Start date: 12/20/15 13:21:00 CDT, Duration: 30 day, Stop date: 01/19/16 13 :20:00 CDT Notes: (Same as: [place] 325/5) Do not exceed 4gm/day of acetaminophen. Start Date: 12/20/15 Stop Date: 12/20/15 Status: DiscontinuedNS (Bolus) IV 1,000 mL, 1,000 ml/hr, Infuse Over: 1 hr, Route: IV, ONCE, Priority: STAT, Dosing Weight 65.909 kg, Start date: 12/17/15 20:59:00 CDT, Duration: 1 doses or times, Stop date: 12/17/15 20:59:00 CDT Start Date: 12/17/15 Stop Date: 12/17/15 Status: Completedondansetron 4 mg, 2 mL, Route: IVP, Drug form: INJ, Q8H, Dosing Weight 65.909, kg, PRN Nausea & Vomiting, Start date: 12/17/15 23:11:00 CDT, Duration: 30 day, Stop date: 01/16/16 23:10:00 CDT Notes: (Same as: Zoan) MEDICATION WASTE Product Size: 4 mgProduct Wasted: ___ mg Start Date: 12/17/15 Stop Date: 12/20/15 Status: DiscontinuedoxyCODONE 5 mg immediate release 5 mg, 1 tab, Route: PO, Drug form: TAB, Q4H, Dosing Weight 65.909, kg, PRN Pain Score 4-6, Start date: 12/17/15 23:11:00 CDT, Duration: 30 day, Stop date: 01/15 23:10:00 CDT Notes: (Same as: Roxicodone) Start Date: 12/17/15 Stop Date: 12/20/15 Status: DiscontinuedoxyCODONE 5 mg immediate release 10 mg, 2 tab, Route: PO, Drug form: TAB, Q4H, Dosing Weight 65.909, kg, PRN Pain Score 7-10, Start date: 12/17/15 23:11:00 CDT, Duration: 30 day, Stop date : 01/16/16 23:10:00 CDT Notes: (Same as: Roxicodone) Start Date: 12/17/15 Stop Date: 12/20/15 Status: DiscontinuedoxyCODONE 5 mg oral tablet 5 mg, 1 tab, Route: PO, Drug form: TAB, ONCE, Dosing Weight 68.182, kg, Priority : NOW, Start date: 12/19/15 21:15:00 CDT, Stop date: 12/19/15 21:15:00 CDT Notes: (Same as: Roxicodone) Start Date: 12/19/15 Stop Date: 12/19/15 Status: Completedpneumococcal 13-valent vaccine 0.5 mL, Route: IM, Drug Form: INJ, Daily, Start date: 12/18/15 9:00:00 CDT, Duration: 1 doses or times, Stop date: 12/18/15 9:00:00 CDT Notes: Lightly roll vial (DO NOT SHAKE) before administration. (Same as: Prevnar 13) Start Date: 12/18/15 Stop Date: 12/18/15 Status: Completedpolyethylene glycol 3350 17 gm, 1 pkt, Route: PO, Drug form: PWDR, Daily, Dosing Weight 65.909, kg, Start date: 12/18/15 9:00:00 CDT, Duration: 30 day, Stop date: 01/16/16 9:00:00 CDT Notes: Dissolve in 8 oz of water or juice.(Same as: Miralax) Start Date: 12/18/15 Stop Date: 12/20/15 Status: Discontinuedpotassium chloride 20 mEq oral tablet, extended release 20 mEq, 1 tab, Route: PO, Drug form: ERTAB, ONCE, Dosing Weight 68.182, kg, Start date: 12/18/15 16:32:00 CDT, Stop date: 12/18/15 16:32:00 CDT Notes: (Same as: K-Dur 20)"Do Not Crush" With food and full glass of water Start Date: 12/18/15 Stop Date: 12/18/15 Status: Completedpotassium chloride 20 mEq oral tablet, extended release 40 mEq, 2 tab, Route: PO, Drug form: ERTAB, ONCE, Dosing Weight 68.182, kg, Start date: 12/18/15 1:13:00 CDT, Stop date: 12/18/15 1:13:00 CDT Notes: (Same as: K-Dur 20)"Do Not Crush" With food and full glass of water Start Date: 12/18/15 Stop Date: 12/18/15 Status: Completedremove patch 1 patch, Route: TOP, Q24H, Drug form: ERFILM, Start date: 12/18/15 12:00:00 CDT , Duration: 30 day, Stop date: 01/16/16 12:00:00 CDT Notes: Remove patch 12 hours after application each day. Start Date: 12/18/15 Stop Date: 12/20/15 Status: Discontinuedsenna 17.2 mg, 2 tab, Route: PO, Drug Form: TAB, Dosing Weight 65.909, kg, Bedtime, Start date: 12/18/15 21:00:00 CDT, Duration: 30 day, Stop date: 01/16/16 21:00: 00 CDT Notes: (Same as: Tunde) Start Date: 12/18/15 Stop Date: 12/20/15 Status: Discontinuedsenna 8.6 mg oral tablet 17.2 mg=2 tab, PO, Bedtime, X 10 day, # 20 tab, 0 Refill(s) Start Date: 12/20/15 Stop Date: 12/30/15 Status: Orderedsodium chloride 0.9% INJ 250 mL 250 mL, Rate: offset plate maker for use with blood product administration, Dosing Weight 68.182, kg, Route: IV, Total Volume: 250, Start Date: 12/20/15 7:44:00 CDT, Duration: 30 day, Stop date: 01/19/16 7:43:00 CDT, Replace Every: 24 hr Start Date: 12/20/15 Stop Date: 12/20/15 Status: Discontinuedtramadol 100 mg, 2 tab, Route: PO, Drug form: TAB, Q6H, Dosing Weight 68.182, kg, Priority: NOW, Start date: 12/19/15 20:52:00 CDT, Duration: 30 day, Stop date: 01/18/16 15:30:00 CDT Notes: Not to exceed 400mg/day. (Same As: Ultram) Start Date: 12/19/15 Stop Date: 12/20/15 Status: Discontinuedtramadol 100 mg, 2 tab, Route: PO, Drug form: TAB, Q6Hnow, Dosing Weight 65.909, kg, PRN Pain Score 4-6, Start date: 12/17/15 23:11:00 CDT, Duration: 30 day, Stop date: 01/16/16 23:10:00 CDT Notes: Not to exceed 400mg/day. (Same As: Ultram) Start Date: 12/17/15 Stop Date: 12/19/15 Status: DiscontinuedZofran 4 mg, 2 mL, Route: IVP, Drug form: INJ, ONCE, Dosing Weight 65.909, kg, Priority : STAT, Start date: 12/17/15 20:23:00 CDT, Stop date: 12/17/15 20:23:00 CDT Notes: (Same as: Rika) MEDICATION WASTE Product Size: 4 mgProduct Wasted: 0 mg Start Date: 12/17/15 Stop Date: 12/17/15 Status: Completed Results BLOOD BANK RESULTS Most recent to oldest [Reference Range]: 1 2 3 ABO/Rh A POS *Unknown* (12/17/15 10:03 PM) Antibody Scrn Negative (12/17/15 10:03 PM) RBC product Product available Product available (12/20/15 7:44 AM) (12/17/15 10:37 PM) ELECTROLYTES Most recent to oldest 1 2 3 [Reference Range]: Sodium Lvl [135-145 mEq/L] 141 mEq/L 142 mEq/L 141 mEq/L (12/20/15 5:29 AM) (12/19/15 4:24 AM) (12/18/15 3:10 PM) Potassium Lvl [3.5-5.1 mEq/L] 4.8 mEq/L 4.1 mEq/L 3.9 mEq/L (12/20/15 5:29 AM) (12/19/15 4:24 AM) (12/18/15 3:10 PM) Chloride Lvl [95-109 mEq/L] 109 mEq/L 110 mEq/L 109 mEq/L (12/20/15 5:29 AM) *HI* (12/18/15 3:10 PM) (12/19/15 4:24 AM) CO2 [24-32 mEq/L] 24 mEq/L 26 mEq/L 22 mEq/L (12/20/15 5:29 AM) (12/19/15 4:24 AM) *LOW* (12/18/15 3:10 PM) AGAP [10.0-20.0 mEq/L] 12.8 mEq/L 10.1 mEq/L 13.9 mEq/L (12/20/15 5:29 AM) (12/19/15 4:24 AM) (12/18/15 3:10 PM) CHEM PANEL Most recent to oldest 1 2 3 [Reference Range]: Creatinine Lvl [0.50-1.40 0.44 mg/dL 0.45 mg/dL 0.59 mg/dL mg/dL] *LOW* *LOW* (12/18/15 3:10 PM) (12/20/15 5:29 AM) (12/19/15 4:24 AM) eGFR 135 mL/min/1.73m2 1 134 mL/min/1.73m2 2 123 mL/min/1.73m2 3 *NA* *NA* *NA* (12/20/15 5:29 AM) (12/19/15 4:24 AM) (12/18/15 3:10 PM) BUN [7-22 mg/dL] 8 mg/dL 7 mg/dL 5 mg/dL (12/20/15 5:29 AM) (12/19/15 4:24 AM) *LOW* (12/18/15 3:10 PM) Glucose Lvl [70-99 mg/dL] 95 mg/dL 111 mg/dL 121 mg/dL (12/20/15 5:29 AM) *HI* *HI* (12/19/15 4:24 AM) (12/18/15 3:10 PM) Calcium Lvl [8.5-10.5 7.9 mg/dL 7.9 mg/dL 7.7 mg/dL mg/dL] *LOW* *LOW* *LOW* (12/20/15 5:29 AM) (12/19/15 4:24 AM) (12/18/15 3:10 PM) Phosphorus [2.5-4.5 mg/dL] 2.8 mg/dL 3.0 mg/dL (12/18/15 3:10 PM) (12/17/15 11:57 PM) Magnesium Lvl [1.8-2.4 1.9 mg/dL 2.1 mg/dL 1.5 mg/dL mg/dL] (12/20/15 5:29 AM) (12/19/15 4:24 AM) *LOW* (12/18/15 3:10 PM) 1Result Comment: The eGFR is calculated [...] eGFR should be multiplied by the estimated BMI.ANEMIA STUDY Most recent to oldest [Reference Range]: 1 2 3 Iron [30-160 ug/dl] 13 ug/dl *LOW* (12/17/15 11:57 PM) Ferritin Lvl [5-204 ng/mL] 8 ng/mL (12/17/15 11:57 PM) % Satur Fe [12-57 %] 5 % *LOW* (12/17/15 11:57 PM) UIBC [110-370 ug/dl] 272 ug/dl (12/17/15 11:57 PM) TIBC [228-428 ug/dl] 285 ug/dl (12/17/15 11:57 PM) PARATHYROID PROFILE Most recent to oldest [Reference Range]: 1 2 3 Ca Ion WB [1.05-1.25 mMol/L] 1.04 mMol/L *LOW* (12/17/15 11:57 PM) Ca Norm WB [1.05-1.25 mMol/L] 0.99 mMol/L *LOW* (12/17/15 11:57 PM) PTH Intact [11.1-79.5 pg/mL] 38.6 pg/mL (12/17/15 11:57 PM) URINE CHEM Most recent to oldest [Reference Range]: 1 2 3 U Preg [Negative] Negative (12/18/15 4:51 AM) IMMUNOLOGY Most recent to oldest [Reference Range]: 1 2 3 CRP [<=2.9] <2.9 (12/17/15 10:49 PM) HEMATOLOGY Most recent to oldest 1 2 3 [Reference Range]: WBC [3.7-10.4 K/CMM] 6.1 K/CMM 7.6 K/CMM 6.9 K/CMM (12/20/15 5:29 AM) (12/19/15 4:24 AM) (12/18/15 3:10 PM) RBC [4.20-5.40 M/CMM] 2.68 M/CMM 2.87 M/CMM 3.09 M/CMM *LOW* *LOW* *LOW* (12/20/15 5:29 AM) (12/19/15 4:24 AM) (12/18/15 3:10 PM) Hgb [12.0-16.0 g/dL] 6.6 g/dL 1 7.1 g/dL 7.3 g/dL *CRIT* *LOW* *LOW* (12/20/15 5:29 AM) (12/19/15 4:24 AM) (12/18/15 3:10 PM) Hct [36.0-48.0 %] 21.6 % 22.0 % 24.2 % *LOW* *LOW* *LOW* (12/20/15 5:29 AM) (12/19/15 4:24 AM) (12/18/15 3:10 PM) MCV [80.0-98.0 fL] 80.6 fL 76.8 fL 78.1 fL (12/20/15 5:29 AM) *LOW* *LOW* (12/19/15 4:24 AM) (12/18/15 3:10 PM) MCH [27.0-31.0 pg] 24.5 pg 24.7 pg 23.5 pg *LOW* *LOW* *LOW* (12/20/15 5:29 AM) (12/19/15 4:24 AM) (12/18/15 3:10 PM) MCHC [32.0-36.0 g/dL] 30.5 g/dL 32.3 g/dL 30.1 g/dL *LOW* (12/19/15 4:24 AM) *LOW* (12/20/15 5:29 AM) (12/18/15 3:10 PM) RDW [11.5-14.5 %] 17.7 % 17.5 % 17.4 % *HI* *HI* *HI* (12/20/15 5:29 AM) (12/19/15 4:24 AM) (12/18/15 3:10 PM) Platelet [133-450 K/CMM] 110 K/CMM 107 K/CMM 98 K/CMM *LOW* *LOW* *LOW* (12/20/15 5:29 AM) (12/19/15 4:24 AM) (12/18/15 3:10 PM) MPV [7.4-10.4 fL] 9.5 fL 9.2 fL 9.2 fL (12/20/15 5:29 AM) (12/19/15 4:24 AM) (12/18/15 3:10 PM) Segs [45.0-75.0 %] 64.0 % 95.5 % 51.9 % (12/20/15 5:29 AM) *HI* (12/17/15 10:10 PM) (12/18/15 3:10 PM) Bands [0.0-11.0 %] 0.0 % (12/20/15 5:29 AM) Lymphocytes [20.0-40.0 %] 32.0 % 2.6 % 36.6 % (12/20/15 5:29 AM) *LOW* (12/17/15 10:10 PM) (12/18/15 3:10 PM) Atypical Lymphs [<=0.0 %] 0.0 % (12/20/15 5:29 AM) Monocytes [2.0-12.0 %] 4.0 % 1.6 % 9.0 % (12/20/15 5:29 AM) *LOW* (12/17/15 10:10 PM) (12/18/15 3:10 PM) Eosinophils [0.0-4.0 %] 0.1 % 1.8 % (12/18/15 3:10 PM) (12/17/15 10:10 PM) Basophils [0.0-1.0 %] 0.2 % 0.7 % (12/18/15 3:10 PM) (12/17/15 10:10 PM) Segs-Bands # [1.5-8.1 K/CMM] 3.9 K/CMM 6.5 K/CMM 2.0 K/CMM (12/20/15 5:29 AM) (12/18/15 3:10 PM) (12/17/15 10:10 PM) Lymphocytes # [1.0-5.5 2.0 K/CMM 0.2 K/CMM 1.4 K/CMM K/CMM] (12/20/15 5:29 AM) *LOW* (12/17/15 10:10 PM) (12/18/15 3:10 PM) Monocytes # [0.0-0.8 K/CMM] 0.2 K/CMM 0.1 K/CMM 0.3 K/CMM (12/20/15 5:29 AM) (12/18/15 3:10 PM) (12/17/15 10:10 PM) Eosinophils # [0.0-0.5 0.1 K/CMM K/CMM] (12/17/15 10:10 PM) Tot Cell Ct 100 *NA* (12/20/15 5:29 AM) Anisocyte [None Seen] 1+ 1+ *ABN* *ABN* (12/20/15 5:29 AM) (12/17/15 10:10 PM) Hypochrom [None Seen] 1+ 1+ 1+ (12/20/15 5:29 AM) (12/18/15 3:10 PM) (12/17/15 10:10 PM) Microcyte [None Seen] 1+ 1+ 1+ *ABN* *ABN* *ABN* (12/20/15 5:29 AM) (12/18/15 3:10 PM) (12/17/15 10:10 PM) Stomatocyte [None Seen] Moderate *ABN* (12/18/15 3:10 PM) Plt Morph Normal Normal (12/20/15 5:29 AM) (12/17/15 10:10 PM) Sed Rate [0-20 mm/hr] 2 mm/hr (12/17/15 10:49 PM) 1Result Comment: Critical Result(s) called to Jose Luis Dan at 12/20/2015 07:07 by CN. Read back OK. Immunizations Not Given Vaccine Date Status Refusal Reason pneumococcal 13-valent vaccine 12/20/15 Not Given Patient Refuses Procedures Procedure Date Related Diagnosis Body Site External fixation 04/2015 Cholecystectomy 2015 Hernia repair 1994 section Social History Social History Type Response Substance Abuse Use: None. Alcohol Past, Type Wine. Frequency: 1-2 times per month. Previous treatment: None. Alcohol use interferes with work or home: No. Drinks more than intended: No. Others hurt by drinking: No. Smoking Status Current some day smoker; Type: Cigarettes; Tobacco use per day: 1; Number of years: 1; Started at age: 30.0; Stopped at age: 30; Previous treatment: None; Ready to change: No; Concerns about tobacco use in household: No; Exposure to Tobacco Smoke None; Cigarette Smoking Last 365 Days Yes; Reg Smoking Cessation Counseling Yes Assessment and Plan Extracted from: Title: Discharge Note Author: Olivier Han MD Date: 12/20/15 Discharge Plan - Lovenox for 3 weeks post discharge - Follow up with Dr. River in 2 weeks. Please call [phone] for an appointment. - Follow up with Dr. Holliday in 1 weeks time Orders: docusate sodium 100 mg oral capsule, 100 mg=1 cap, PO, BID, # 28 cap, 0 Refill( s) gabapentin 300 mg oral capsule, 600 mg=2 cap, PO, Q8Hnow, # 42 cap, 0 Refill (s) senna 8.6 mg oral tablet, 17.2 mg=2 tab, PO, Bedtime, X 10 day, # 20 tab, 0 Refill(s) sodium chloride 0.9% INJ 250 mL, 250 mL, Rate: offset plate maker for use with blood product administration, Dosing Weight 68.182, kg, Route: IV, Total Volume: 250, Start Date: 12/20/15 7:44:00 CDT, Duration: 3 0 day, Stop date: 01/19/16 7:43:00 CDT, Replace Every: 24 hr ABORh Blood Type Antibody Screen [facility] Blood Bank Orders CBC w/ Diff and Platelet Patient Discharge Condition Stable Discharge Disposition Stable Addendum by Olivier Han MD on 12/20/2015 17:00 CDT Will not give Lovenox at discharge per heme onc recommendations due to her bleeding disorder. SHe will follow up with Dr. Rothman in 1 week's time (no Dr. Holliday as mentioned in the dc instructions). Patient aware of the plan. Extracted from: Title: [facility] Progress Note Author: Korin Freeman MD Date: 12/20/15 Impression and Plan Diagnosis Orders Education and Follow-up: Counseled: Regarding treatment, Regarding medications. Ms Sekou Campbell is a 30 year old female with history of Hepatitis C and Glanzmann Thromboasthenia who presented to [facility] following hardware removal from the left ankle.L single shot injections for poplit eal sciatic and saphenous nerve was performed in PACU Plan - Continue acetaminophen 1g q6 hours - Start [place] 5/325 q4h. - d/c tramadol 100mg q6 hours - Increase gabapentin to 600mg q8 hours - methocarbamol 1g q8 hours as needed for muscle spasm - Continue marinol 5 mg bid APMS will sign off. Please call [phone] with questions Korin Freeman MD PGY-3 resident Anesthesiology Extracted from: Title: Hematology Initial Consult Author: Negra Mittal Date: 12/17 Note Hematology Consult Note: Patient Room: [place] [id number], [id number] SEKOU CAMPBELL N 30y (: 1985) F Attending: Olivier Han MD Service: Internal Medicine DATE OF CONSULT: 12/18/15 REFERRING PHYSICIAN: Dr. Han CONSULTING PHYSICIAN: Dr. Holliday REASON FOR CONSULTATION: Glanzmann Thrombasthenia CHIEF COMPLAINT: fracture of orthopedic hardware HISTORY OF PRESENT ILLNESS: 30 yo female with a past medical history significant for Glanzmann thrombasthenia bleeding disorder, iron defiency anemia and HCV who presents to the emergency room as a mckeon sfer from [place] for an orthopedic hardware issue with concern for fracture accepted by Dr. River. She is status post ORIF of left tibia by Dr. Bills in May 2015 since then she has been lost to fo llow-up but had a fall a few days ago. She noticed increased pain in lower extremity. For her Glanzmann thrombasthenia she follows up with [facility]. She notes she takes amicar if she experineces bleeding at home. Hematology was consulted for pre-operative management given her bleeding disorder. PAST MEDICAL HISTORY: Cholecystitis Glanzmann thromboasthenia Hepatitis C PAST SURGICAL HISTORY: External fixation: 04/2015 Cholecystectomy: 2014 Hernia repair: 1994 section SOCIAL HISTORY: Current smoker. Etoh use occasionally. Denies drug use FAMILY HISTORY: Mother with ovarian cancer Allergies (3) Active Reaction Iron None documented NSAIDs None documented aspirin None documented Medications (24) Active Scheduled Meds (8): 12/18/15 clonazePAM (KlonoPIN) 0.5 mg PO Bedtime 12/18/15 docusate 100 mg PO BID 12/18/15 gabapentin 300 mg PO Q8Hnow 12/18/15 lidocaine topical (Lidoderm 5% topical film (patch)) 1 patch TOP Q24H 12/18/15 pneumococcal 13-valent vaccine 0.5 mL IM Daily 12/18/15 polyethylene glycol 3350 17 gm PO Daily 12/18/15 remove patch 1 patch TOP Q24H 12/18/15 senna 17.2 mg PO Bedtime Unscheduled Meds: None PRN Meds (8): 12/17/15 acetaminophen 1,000 mg PO Q6Hnow 12/17/15 melatonin 3 mg PO Bedtime 12/17/15 methocarbamol 1,000 mg PO Q8H 12/17/15 morphine Sulfate 4 mg IVP Q4H 12/17/15 ondansetron 4 mg IVP Q8H 12/17/15 oxyCODONE (oxyCODONE 5 mg immediate release) 5 mg PO Q4H 12/17/15 oxyCODONE (oxyCODONE 5 mg immediate release) 10 mg PO Q4H 12/17/15 tramadol 100 mg PO Q6Hnow One Time Meds (8): 12/17/15 (Completed) Sodium Chloride 0.9% IV (NS (Bolus) IV) 1,000 mL IV ONCE 1,000 ml/hr 12/18/15 (Completed) calcium gluconate + sodium chloride 0.9% INJ 100 mL 2, 000 mg IVPB ONCE 120 ml/hr 12/17/15 (Completed) hydromorphone (Dilaudid) 0.5 mg IVP ONCE 12/17/15 (Completed) hydromorphone (Dilaudid) 0.5 mg IVP ONCE 12/17/15 (Completed) hydromorphone (Dilaudid) 0.5 mg IVP ONCE 12/17/15 (Completed) morphine Sulfate 4 mg IVP ONCE 12/17/15 (Completed) ondansetron (Zofran) 4 mg IVP ONCE 12/18/15 (Completed) potassium chloride (potassium chloride 20 mEq oral tablet , extended release) 40 mEq PO ONCE Continuous Infusions: None REVIEW OF SYSTEMS: + L LE pain PHYSICAL EXAMINATION: Vital Signs - Reviewed Vitals Tmp(F) Pulse BP RR SpO2 FIO2 12/17 06:55 98.7 71 105/59 16 --- --- 12/17 06:35 98.3 94 94/56 16 --- --- 12/17 04:58 98.4 64 98/64 16 100 --- 12/17 03:04 ---- 72 ----- 11 97 --- 12/17 01:22 ---- 79 ----- 23 98 --- 24 Hr Tmax: 98.7F (37.06c) at 12/17 06:55 Vital Signs are the last 5 in the past 48 hours. Date Wt(kg) Wt(lb) Ht(cm) Ht(in) Method 12/17 68.18 150.00 167.64 66.00 Estimated 12/16 (initial) 65.91 145.00 Estimated 12/16 167.64 66.00 Stated General- NAD HEENT- MMM, anicteric sclera CVS- RRR no MRG Chest- CTAB, no wheezes Abdomen- soft, NTND Extremities- L LE dressing intact Skin- several hematomas on upper extremities, multiple tatoos DATA: 24hr Labs 12/17 0451 U Preg Negative 12/16 2357 Ca Ion WB 1.04 L Ca Norm WB 0.99 L Phosphorus 3.0 Glucose Lvl 65 L BUN 3 L Creatinine Lvl 0.43 L Sodium Lvl 142 Potassium Lvl 2.7 C Chloride Lvl 113 H CO2 19 L AGAP 12.7 Calcium Lvl 6.4 C eGFR 136 TSH 2.000 PTH Intact 38.6 Ferritin Lvl 8 Iron 13 L % Satur Fe 5 L TIBC 285 UIBC 272 Hct 18.7 C 12/16 2248 Sed Rate 2 CRP <2.9 12/16 2236 RBC product Product available 12/16 2210 Glucose Lvl 91 BUN 5 L Creatinine Lvl 0.55 Sodium Lvl 137 Potassium Lvl 3.6 Chloride Lvl 106 CO2 22 L AGAP 12.6 Calcium Lvl 7.9 L eGFR 125 WBC 3.9 RBC 2.51 L Hgb 5.8 C Hct 19.5 C MCV 77.5 L MCH 23.2 L MCHC 29.9 L RDW 17.8 H Platelet 116 L MPV 9.1 Segs 51.9 Monocytes 9.0 Lymphocytes 36.6 Eosinophils 1.8 Basophils 0.7 Segs-Bands # 2.0 Lymphocytes # 1.4 Monocytes # 0.3 Eosinophils # 0.1 Plt Morph Normal Anisocyte 1+ Microcyte 1+ Hypochrom 1+ 12/16 2202 ABO/Rh A POS Antibody Scrn Negative XM EXM Interp Computer XM OK XM EXM Interp Computer XM OK ASSESSMENT AND PLAN: This is a 30 year old female with history of Glanzmann Thrombasthenia, iron deficiency anemia, Hepatitis C who presents with concern for fracture of orthopedic hardware. Hematology was consulted for pre -operative management given her bleeding disorder. # Glanzmann Thrombasthenia: Pt has an operative bleeding risk given this is a functional issue given her inherent defect of GPIIb/IIIa. - Please start Amicar 3g q8h IV. Plan for 3 total days. - Plan for 1 jumbopack of platelets to be timed 1 hour prior to surgery. Given short duration of effect, timing is important. - Plan for 1 jumbopack of plt for hold in OR and 2u pRBC on hold for OR in the even to bleeding. We can also give Factor VIIa 30mcg/kg IV if bleeding is an issue. Please contat Hematology STAT if bleeding. -Transfuse 2U PRBC pre-op given anemia -Avoid all anticoagulants on this patient. -for post bleeding, consider additional platelet transfusion. # Iron Deficiency Anemia: Pt presents with hgb 5.8 from baseline of 7-8. Likely in setting of recent trauma, no signs of active bleeding. Her iron studies are consistent with iron deficiency anemia. Her home iron should be restarted post-op. -Please tranfuse 2U PRBC prior to OR as above -frequent CBC monitoring Thank you for this consult. Patient was discussed with Dr. Holliday. Negra Mittal MD Hematology/Oncology Fellow [phone] Addendum by Duglas Holliday MD on Hematology Attending Attestation: 12/18/2015 17:09 I saw and examined this patient with on 12/18/2015 , and I agree with findings, assessment, and recommended plan of care. I personally reviewed all labs. Thank you for the consult. Patient yeny t through orthopedic surgery this morning without major bleeding issues. Continue to give Amicar per original plan. Transfuse platelets if she bleeds. Please call us if you have any questions. Duglas Holliday M.D. [phone] [facility] Division of Hematology (Internal Medicine) [facility] Extracted from: Title: Admission H & P Author: Pérez Huston MD Date: 12/17/15 Assessment/Plan 1.Fracture of right lower extremity Ortho CS planning on OR in am NPO 2.Glanzmann thrombasthenia CS heme in am may contribute to extra bleeding may need factor 3.Anemia 2/2 above and hardware issue Iron studies pending 2 U PRBC ordered in ED Hb Q6 ordered for 2 days 4.HCV infection 5. Low Ca and K replaced ppx holding chemical given anemia hospitalist is primary
--- OUTSIDE RECORDS SUMMARY | 2018-08-09 17:09 | XMS REPORT | Summary of Care ---
:1985 Author Organization [facility] Address [address], [place] [address]- Care Team Providers Name Role Phone Kenny Bonds Primary Care Physician Unavailable Encounter HQ [email or web address]) [id number] Date(s): 06/29/15 - 07/01/15 [facility] [address] [place] [address] Professional Services provided by [facility] [place] [address]- Discharge Disposition: Home Attending Physician: Oksana Wilson MD Admitting Physician: Jose Luis Jeffrey MD Vital Signs Most recent to oldest 1 2 3 [Reference Range]: Height 167.64 cm (06/29/15 6:02 AM) Temperature Oral [96.4-99.1 98 DegF 98 DegF 98.8 DegF DegF] (07/01/15 7:41 AM) (07/01/15 4:00 AM) (06/30/15 7:45 PM) Blood Pressure [90-140/60-90 108/59 mmHg 113/58 mmHg 117/59 mmHg mmHg] (07/01/15 7:41 AM) (07/01/15 4:00 AM) (06/30/15 7:45 PM) Respiratory Rate [14-20 BRMIN] 18 BRMIN 18 BRMIN 18 BRMIN (07/01/15 7:41 AM) (07/01/15 4:00 AM) (06/30/15 7:45 PM) Peripheral Pulse Rate [60-100 63 bpm 73 bpm 80 bpm bpm] (07/01/15 4:00 AM) (06/30/15 7:45 PM) (06/30/15 12:45 PM) Weight 81.818 kg (06/29/15 6:02 AM) Body Mass Index 29.11 m2 (06/29/15 6:02 AM) Problem List Condition Effective Dates Status Health Status Informant Cholecystitis(Confirmed) Resolved Glanzmann thromboasthenia(Confirmed) Resolved Hepatitis C(Confirmed) Resolved Allergies, Adverse Reactions, Alerts Substance Reaction Severity Status aspirin Active Iron Active NSAIDs Active Medications Amicar + Sodium Chloride 0.9% IV 238 mL 3 gm, 12 mL, Route: IV, Drug form: INJ, Q8H, Dosing Weight 81.818, kg, Start date: 06/29/15 22:00:00, Duration: 30 day, Stop date: 07/29/15 14:00:00 Notes: (Same as: Amicar) Start Date: 06/29/15 Stop Date: 07/01/15 Status: DiscontinuedAmicar 1000 mg oral tablet 3,000 mg=3 tab, PO, Q8H, Take with menstrual cycle, # 90 tab, 1 Refill(s) Start Date: 07/01/15 Stop Date: 06/30/17 Status: OrderedBenadryl 25 mg, 0.5 mL, Route: IVP, Drug form: INJ, ONCE, Dosing Weight 81.818, kg, PRN Insomnia, Start date:06/29/15 22:55:00 Notes: (Same as: Benadryl) Start Date: 06/29/15 Stop Date: 06/29/15 Status: CompletedclonazePAM 4 mg, Route: PO, TID, Dosing Weight 81.818, kg, Start date: 06/29/15 21:58:00, Duration: 30 day, Stop date: 07/29/15 17:00:00 Start Date: 06/29/15 Stop Date: 06/29/15 Status: DiscontinuedclonazePAM 1 mg, 1 tab, Route: PO, Drug form: TAB, TID, Dosing Weight 81.818, kg, Start date: 06/29/15 22:01:00, Duration: 30 day, Stop date: 07/29/15 17:00:00 Notes: (Same As: KlonoPIN) Start Date: 06/29/15 Stop Date: 07/01/15 Status: DiscontinuedDilaudid 0.5 mg, 0.25 mL, Route: IV, Drug form: INJ, Q3H, Dosing Weight 81.818, kg, PRN Pain Score 7-10, Start date: 06/29/15 16:30:00, Duration: 30 day, Stop date: 16:29:00 Notes: Same as: Dilaudid Start Date: 06/29/15 Stop Date: 06/30/15 Status: DiscontinuedDilaudid 1 mg, Route: IVP, ONCE, Dosing Weight 81.818, kg, Priority: STAT, Start date: 6:30:00, Stopdate: 06/29/15 6:30:00 Start Date: 06/29/15 Stop Date: 06/29/15 Status: Completediron sulfate (ferrous sulfate) 325 mg oral tablet 325 mg=1 tab, PO, TID, please take with vitamin c (pills or food containing Vit C), # 270 tab, 1 Refill(s) Start Date: 07/01/15 Status: OrderedIsolyte S PH 7.4 1,000 mL 1,000 mL, Rate: 75 ml/hr, Infuse over: 13.3 hr, Route: IV, Dosing Weight 81.818 kg, Total Volume: 1,000, Start date: 06/29/15 12:24:00, Stop date: 07/29/15 12: 23:00 Notes: (Same as: Isolyte S PH 7.4) Start Date: 06/29/15 Stop Date: 07/01/15 Status: DiscontinuedmedroxyPROGESTERone 150 mg, 1 mL, Route: IM, Drug form: INJ, ONCE, Dosing Weight 81.818, kg, Start date: 07/01/15 7:08:00, Stop date: 07/01/15 7:08:00 Notes: (Same as: Depo-Provera)This is NOT Depo-SubQ Provera 104For IM use only MEDICATION WASTEProduct Size: 150 mgProduct Wasted: ___ mg Start Date: 07/01/15 Stop Date: 07/01/15 Status: Completedmorphine Sulfate 2 mg, 1 mL, Route: IVP, Drug form: INJ, Q4H, Dosing Weight 81.818, kg, PRN Pain Score 4-6, Start date: 06/29/15 16:31:00, Duration: 30 day, Stop date: 07/29/15 16:30:00 Notes: (Same as:MORPhine Sulfate) Start Date: 06/29/15 Stop Date: 06/30/15 Status: Discontinuedmorphine Sulfate 6 mg, Route: IVP, ONCE, Dosing Weight 81.818, kg, Start date: 06/29/15 14:53:00 , Stop date: 06/28/1613:53:00 Start Date: 06/29/15 Stop Date: 06/29/15 Status: Completedmorphine Sulfate 6 mg, Route: IVP, Drug form: INJ, ONCE, Dosing Weight 81.818, kg, Priority: STAT , Start date: 06/29/15 8:21:00, Stop date: 06/29/15 8:21:00 Start Date: 06/29/15 Stop Date: 06/29/15 Status: Completedmorphine Sulfate 6 mg, Route: IVP, Drug form: INJ, ONCE, Dosing Weight 81.818, kg, Priority: STAT , Start date: 06/29/15 11:17:00, Stop date: 06/29/15 11:17:00 Start Date: 06/29/15 Stop Date: 06/29/15 Status: CompletedNorco 10/325 oral tablet 1 tab, Route: PO, Drug Form: TAB, Dosing Weight 81.818, kg, ONCE, STAT, Start date: 06/29/15 8:19:00, Stop date: 06/29/15 8:19:00 Start Date: 06/29/15 Stop Date: 06/29/15 Status: DiscontinuedNorco 5/325 oral tablet 2 tab, Route: PO, Drug Form: TAB, Dosing Weight 81.818, kg, Q6H, PRN Pain Score 4-6, Start date: 06/30/15 13:32:00, Duration: 30 day, Stop date: 07/30/15 13:31: 00 Notes: (Same as: [place] 325/5) Do not exceed 4gm/day of acetaminophen. Start Date: 06/30/15 Stop Date: 06/30/15 Status: DiscontinuedNorco 5/325 oral tablet 1 tab, Route: PO, Drug Form: TAB, Dosing Weight 81.818, kg, ONCE, STAT, Start date: 06/29/15 8:05:00, Stop date: 06/29/15 8:05:00 Notes: (Same as: [place] 325/5) Do not exceed 4gm/day of acetaminophen. Start Date: 06/29/15 Stop Date: 06/29/15 Status: DiscontinuedNS (Bolus) IV 1,000 mL, 1,000 ml/hr, Infuse Over: 1 hr, Route: IV, 1,000, Drug form: INJ, ONCE , Priority: STAT, Dosing Weight 81.818 kg, Start date: 06/29/15 12:42:00, Duration: 1 doses or times, Stop date: 06/29/1611:42:00 Start Date: 06/29/15 Stop Date: 06/29/15 Status: CompletedOfirmev 1,000 mg, 100 mL, Route: IV, Drug form: INJ, ONCE, Dosing Weight 81.818, kg, Priority: STAT, Start date: 06/29/15 23:14:00, Stop date: 06/29/15 23:14:00 Notes: Infuse over 15 minutesDo not exceed 4gm/day of acetaminophen MEDICATION WASTE ProductSize: 1000 mgProduct Wasted: ___ mg Start Date: 06/29/15 Stop Date: 06/29/15 Status: CompletedSodium Chloride 0.9% (titrate) 250 mL 250 mL, Rate: violin teacher for use with blood product administration, Dosing Weight 81.818, kg, Route: IV, Total Volume: 250, Start Date: 06/29/15 15:00:00, Duration: 1 doses or times, Stop date: 06/30/15 14:59:00, Replace Every: 24 hr Start Date: 06/29/15 Stop Date: 06/30/15 Status: Completedtramadol 100 mg, 2 tab, Route: PO, Drug form: TAB, Q6H, Dosing Weight 81.818, kg, PRN Pain Score 4-6, Start date: 06/30/15 14:05:00, Duration: 30 day, Stop date: 14:04:00 Notes: Not to exceed 400mg/day. (Same As: Ultram) Start Date: 06/30/15 Stop Date: 07/01/15 Status: Discontinuedtramadol 100 mg oral tablet, extended release 100 mg, 2 tab, Route: PO, Drug form: TAB, Q8H, Start date: 06/30/15 16:00:00, Duration: 30 day, Stopdate: 07/30/15 8:00:00 Notes: Not to exceed 400mg/day. (Same As: Ultram) Start Date: 06/30/15 Stop Date: 06/30/15 Status: Canceledtramadol 50 mg oral tablet 100 mg=2 tab, PO, Q6H, PRN Pain Score 4-6, # 30 tab, 0 Refill(s) Start Date: 07/01/15 Stop Date: 08/01/15 Status: OrderedTylenol 650 mg, 2 tab, Route: PO, Drug form: TAB, Q6H, Dosing Weight 81.818, kg, PRN Pain Score 1-3, Start date: 06/30/15 16:30:00, Duration: 30 day, Stop date: 16:29:00 Notes: Do not exceed 4 gm/day. (Same as: Tylenol) Start Date: 06/30/15 Stop Date: 07/01/15 Status: DiscontinuedTylenol with Codeine #3 oral tablet 2 tab, Route: PO, Drug Form: TAB, Dosing Weight 81.818, kg, Q4H, PRN Pain Score 4-6, Start date: 06/30/15 14:07:00, Duration: 30 day, Stop date: 07/30/15 14:06: 00 Notes: Do not exceed 4gm/day of acetaminophen. (Same as: Tylenol with Codeine # 3) Start Date: 06/30/15 Stop Date: 06/30/15 Status: DiscontinuedTylenol with Codeine #3 oral tablet 1 tab, Route: PO, Drug Form: TAB, Dosing Weight 81.818, kg, Q4H, PRN Pain Score 1-3, Start date: 06/30/15 14:06:00, Duration: 30 day, Stop date: 07/30/15 14:05: 00 Notes: Do not exceed 4gm/day of acetaminophen. (Same as: Tylenol with Codeine # 3) Start Date: 06/30/15 Stop Date: 06/30/15 Status: DiscontinuedTylenol with Codeine #3 oral tablet 1 tab, Route: PO, Drug Form: TAB, Dosing Weight 81.818, kg, Q6H, PRN Pain Score 1-3, Start date: 06/30/15 20:46:00, Duration: 30 day, Stop date: 07/30/15 20:45: 00 Notes: Do not exceed 4gm/day of acetaminophen. (Same as: Tylenol with Codeine # 3) Start Date: 06/30/15 Stop Date: 07/01/15 Status: DiscontinuedTylenol with Codeine #3 oral tablet 2 tab, PO, Q6H, PRN Pain Score 6-10, # 50 tab, 0 Refill(s) Start Date: 07/01/15 Stop Date: 08/01/15 Status: OrderedZofran 4 mg, 2 mL, Route: IVP, Drug form: INJ, ONCE, Dosing Weight 81.818, kg, Priority : STAT, Start date: 06/29/15 8:21:00, Stop date: 06/29/15 8:21:00 Notes: (Same as: Zofran) MEDICATION WASTE Product Size: 4 mgProduct Wasted: ___ mg Start Date: 06/29/15 Stop Date: 06/29/15 Status: CompletedZofran 4 mg, 2 mL, Route: IV, Drug form: INJ, Q8H, Dosing Weight 81.818, kg, PRN Nausea , Start date: 06/30/15 7:13:00, Duration: 30 day, Stop date: 07/30/15 7:12:00 Notes: (Same as: Zofran) MEDICATION WASTE Product Size: 4 mgProduct Wasted: ___ mg Start Date: 06/30/15 Stop Date: 07/01/15 Status: Discontinued Results BLOOD BANK RESULTS Most recent to oldest 1 2 3 [Reference Range]: ABO/Rh A POS *Unknown* (06/29/15 7:24 AM) Antibody Scrn Positive 1 (06/29/15 7:24 AM) AB Int Non-specific IgG Antibody *Unknown* (06/29/15 7:24 AM) Path AB Blood Bank Physician Service Current work up shows the presence of a weakly reactive nonspecific IgG antibody. This antibody does not demonstrate specificity against any of the major blood group antigens and likely has limited clinical significance. Should RBC transfusion be required, crossmatch compatible units will be issued. The patient s electronic medical record has been reviewed for relevant information.29 y.o. F w/ Glanzmann Thrombasthenia presenting after a ruptured ovarian cyst and symptomatic anemia currently receiving RBC transfusion. CPT: 67487 *NA* (06/29/15 7:24 AM) Platelet product Product available (06/29/15 3:00 PM) RBC product Product available Product available Product available (06/29/15 6:16 PM) (06/29/15 12:21 PM) (06/29/15 12:11 PM) 1Result Comment: 06/29/2015 10:00 [id number] "Significant Findings of Positive Antibody Screen_ called to Erma De Santiago_ at 0956_ by tme_. Read Back OK"ELECTROLYTES Most recent to oldest [Reference Range]: 1 2 3 Sodium Lvl [135-145 mEq/L] 138 mEq/L (06/29/15 7:24 AM) Potassium Lvl [3.5-5.1 mEq/L] 4.0 mEq/L (06/29/15 7:24 AM) Chloride Lvl [95-109 mEq/L] 106 mEq/L (06/29/15 7:24 AM) CO2 [24-32 mEq/L] 24 mEq/L (06/29/15 7:24 AM) AGAP [10.0-20.0 mEq/L] 12.0 mEq/L (06/29/15 7:24 AM) CHEM PANEL Most recent to oldest [Reference Range]: 1 2 3 Creatinine Lvl [0.50-1.40 mg/dL] 0.48 mg/dL *LOW* (06/29/15 7:24 AM) eGFR 131 mL/min/1.73m2 1 *NA* (06/29/15 7:24 AM) BUN [7-22 mg/dL] 7 mg/dL (06/29/15 7:24 AM) Glucose Lvl [70-99 mg/dL] 118 mg/dL *HI* (06/29/15 7:24 AM) Total Protein [6.4-8.4 g/dL] 7.0 g/dL (06/29/15 9:30 AM) Albumin Lvl [3.5-5.0 g/dL] 3.3 g/dL *LOW* (06/29/15 9:30 AM) Globulin [2.0-4.0 g/dL] 3.7 g/dL (06/29/15 9:30 AM) A/G Ratio [0.7-1.6] 0.9 (06/29/15 9:30 AM) Calcium Lvl [8.5-10.5 mg/dL] 8.4 mg/dL *LOW* (06/29/15 7:24 AM) ALT [0-65 unit/L] 14 unit/L (06/29/15 9:30 AM) AST [0-37 unit/L] 14 unit/L (06/29/15 9:30 AM) Alk Phos [39-136 unit/L] 89 unit/L (06/29/15 9:30 AM) Bili Total [0.2-1.3 mg/dL] 0.1 mg/dL *LOW* (06/29/15 9:30 AM) Bili Direct [0.0-0.3 mg/dL] 0.1 mg/dL (06/29/15 9:30 AM) Bili Indirect [0.0-1.0 mg/dL] 0.0 mg/dL (06/29/15 9:30 AM) 1Result Comment: The eGFR is calculated using [...] eGFR should be multiplied by the estimated BMI.URINE CHEM Most recent to oldest [Reference Range]: 1 2 3 U Preg [Negative] Negative (06/29/15 1:54 PM) HEMATOLOGY Most recent to oldest 1 2 3 [Reference Range]: WBC [3.7-10.4 K/CMM] 4.1 K/CMM 6.0 K/CMM 6.4 K/CMM (07/01/15 4:10 AM) (06/30/15 4:50 PM) (06/30/15 12:31 PM) RBC [4.20-5.40 M/CMM] 2.90 M/CMM 2.71 M/CMM 2.73 M/CMM *LOW* *LOW* *LOW* (07/01/15 4:10 AM) (06/30/15 4:50 PM) (06/30/15 12:31 PM) Hgb [12.0-16.0 g/dL] 8.7 g/dL 8.1 g/dL 8.2 g/dL *LOW* *LOW* *LOW* (07/01/15 4:10 AM) (06/30/15 4:50 PM) (06/30/15 12:31 PM) Hct [36.0-48.0 %] 26.6 % 24.8 % 25.1 % *LOW* *LOW* *LOW* (07/01/15 4:10 AM) (06/30/15 4:50 PM) (06/30/15 12:31 PM) MCV [80.0-98.0 fL] 91.9 fL 91.8 fL 91.8 fL (07/01/15 4:10 AM) (06/30/15 4:50 PM) (06/30/15 12:31 PM) MCH [27.0-31.0 pg] 30.0 pg 29.9 pg 29.9 pg (07/01/15 4:10 AM) (06/30/15 4:50 PM) (06/30/15 12:31 PM) MCHC [32.0-36.0 g/dL] 32.6 g/dL 32.6 g/dL 32.6 g/dL (07/01/15 4:10 AM) (06/30/15 4:50 PM) (06/30/15 12:31 PM) RDW [11.5-14.5 %] 19.5 % 19.5 % 19.6 % *HI* *HI* *HI* (07/01/15 4:10 AM) (06/30/15 4:50 PM) (06/30/15 12:31 PM) Platelet [133-450 K/CMM] 116 K/CMM 97 K/CMM 109 K/CMM *LOW* *LOW* *LOW* (07/01/15 4:10 AM) (06/30/15 4:50 PM) (06/30/15 12:31 PM) MPV [7.4-10.4 fL] 9.2 fL 8.7 fL 8.8 fL (07/01/15 4:10 AM) (06/30/15 4:50 PM) (06/30/15 12:31 PM) Segs [45.0-75.0 %] 66.0 % 84.1 % 88.7 % (07/01/15 4:10 AM) *HI* *HI* (06/30/15 4:50 PM) (06/30/15 12:31 PM) Lymphocytes [20.0-40.0 %] 17.0 % 6.6 % 5.6 % *LOW* *LOW* *LOW* (07/01/15 4:10 AM) (06/30/15 4:50 PM) (06/30/15 12:31 PM) Monocytes [2.0-12.0 %] 13.0 % 6.6 % 4.5 % *HI* (06/30/15 4:50 PM) (06/30/15 12:31 PM) (07/01/15 4:10 AM) Eosinophils [0.0-4.0 %] 4.0 % 2.5 % 0.8 % (07/01/15 4:10 AM) (06/30/15 4:50 PM) (06/30/15 12:31 PM) Basophils [0.0-1.0 %] 0.0 % 0.2 % 0.4 % (07/01/15 4:10 AM) (06/30/15 4:50 PM) (06/30/15 12:31 PM) Segs-Bands # [1.5-8.1 2.7 K/CMM 5.0 K/CMM 5.7 K/CMM K/CMM] (07/01/15 4:10 AM) (06/30/15 4:50 PM) (06/30/15 12:31 PM) Lymphocytes # [1.0-5.5 0.7 K/CMM 0.4 K/CMM 0.4 K/CMM K/CMM] *LOW* *LOW* *LOW* (07/01/15 4:10 AM) (06/30/15 4:50 PM) (06/30/15 12:31 PM) Monocytes # [0.0-0.8 0.5 K/CMM 0.4 K/CMM 0.3 K/CMM K/CMM] (07/01/15 4:10 AM) (06/30/15 4:50 PM) (06/30/15 12:31 PM) Eosinophils # [0.0-0.5 0.2 K/CMM 0.2 K/CMM 0.1 K/CMM K/CMM] (07/01/15 4:10 AM) (06/30/15 4:50 PM) (06/30/15 12:31 PM) RBC Morph Normal Normal (07/01/15 4:10 AM) (06/30/15 12:31 PM) Anisocyte [None Seen] 1+ *ABN* (06/29/15 1:54 PM) Polychrom [None Seen] Moderate *ABN* (06/30/15 12:31 PM) Hypochrom [None Seen] 1+ 1+ (06/30/15 12:31 PM) (06/29/15 1:54 PM) Plt Morph Normal Normal Normal (07/01/15 4:10 AM) (06/30/15 12:31 PM) (06/29/15 1:54 PM) PT [12.0-14.7 seconds] 13.3 seconds (06/29/15 7:24 AM) INR [0.85-1.17] 0.98 (06/29/15 7:24 AM) PTT [22.9-35.8 seconds] 25.6 seconds (06/29/15 7:24 AM) Immunizations No data available for this section [...] Status Current some day smoker; Type: Cigarettes; Previous treatment: None; Ready to change: No; Concerns about tobacco use in household: No; Exposure to Tobacco Smoke None; Cigarette Smoking Last 365 Days No; Reg Smoking Cessation Counseling No Assessment and Plan Extracted from: Title: 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 Pain improved. Ate yesterday and tolerated PO. Not very cooperative with questions this morning. OBJECTIVE 24hr Labs 06/30 0410 WBC 4.1 RBC 2.90 L Hgb 8.7 L Hct 26.6 L MCV 91.9 MCH 30.0 MCHC 32.6 RDW 19.5 H Platelet 116 L MPV 9.2 Segs 66.0 Monocytes 13.0 H Lymphocytes 17.0 L Eosinophils 4.0 Basophils 0.0 Segs-Bands # 2.7 Lymphocytes # 0.7 L Monocytes # 0.5 Eosinophils # 0.2 RBC Morph Normal Plt Morph Normal 06/29 1650 WBC 6.0 RBC 2.71 L Hgb 8.1 L Hct 24.8 L MCV 91.8 MCH 29.9 MCHC 32.6 RDW 19.5 H Platelet 97 L MPV 8.7 Segs 84.1 H Monocytes 6.6 Lymphocytes 6.6 L Eosinophils 2.5 Basophils 0.2 Segs-Bands # 5.0 Lymphocytes # 0.4 L Monocytes # 0.4 Eosinophils # 0.2 06/29 1231 WBC 6.4 RBC 2.73 L Hgb 8.2 L Hct 25.1 L MCV 91.8 MCH 29.9 MCHC 32.6 RDW 19.6 H Platelet 109 L MPV 8.8 Segs 88.7 H Monocytes 4.5 Lymphocytes 5.6 L Eosinophils 0.8 Basophils 0.4 Segs-Bands # 5.7 Lymphocytes # 0.4 L Monocytes # 0.3 Eosinophils # 0.1 RBC Morph Normal Plt Morph Normal Hypochrom 1+ Polychrom Moderate [place] still necessary (Yes/No): Line still necessary (Yes/No): Vitals Tmp(F) Pulse BP RR SpO2 FIO2 06/30 04:00 98 63 113/58 18 98 --- 06/29 19:45 98.8 73 117/59 18 97 --- 06/29 15:37 98.4 --- 104/50 18 --- --- 06/29 12:45 98.7 80 104/55 20 --- --- 06/29 08:08 99.2 85 111/58 18 100 --- I&O Record In Out [facility] 06/29 24hr Tot 2907 900 06/28 24hr Tot 2524 0 2524 Medications (7) Active Scheduled Meds (2): 06/29/15 aminocaproic acid + Sodium Chloride 0.9% IV 238 mL (Amicar + Sodium Chloride 0.9% IV 238 mL) 3 gm IV Q8H 250 ml/hr 06/29/15 clonazePAM 1 mg PO TID Unscheduled Meds: None PRN Meds (4): 06/30/15 acetaminophen-codeine (Tylenol with Codeine #3 oral tablet) 1 tab PO Q6H 06/30/15 acetaminophen (Tylenol) 650 mg PO Q6H 06/30/15 ondansetron (Zofran) 4 mg IV Q8H 06/30/15 tramadol 100 mg PO Q6H One Time Meds (1): 06/29/15 (Completed) acetaminophen (Ofirmev) 1,000 mg IV ONCE 400 ml/hr Continuous Infusions: None ASSESSMENT & PLAN 30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 HD #3 1. Anemia: acute on chronic secondary to cyst rupture compounded by underlying platelet dysfunction. normally ~7 s/p 2 units PRBCs, Hg stable ~ 8, last 8.7 continue Iron TID at home with Vitamin C 2. Glanzmann's thrombasthenia: Heme following s/p 1 jumbo pack of platelets s/p Amicar 3g IV q8 hr Will discharge home with Amicar 3g PO q8hrs while bleeding, await final Heme recs for Rx 3. Pain control: will d/c with Tylenol #3/Tramadol 4. Ovarian suppression: given patient several options for BC. Desires Depo Provera, ordered f/u in clinic for well-women, post-hospital stay 5. Left leg fracture: s/p Ortho consult, x-ray, suture removal and splinting PT consulted and deems stable for discharge with crutches. Discharge home this AM. d/w Dr. Gonzales. 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: Apartment Maintenance Manager Service Reason for Admission: ANEMIA/CLOTTING DISORDERS/RUPTURED OVARIAN CYST Working DRG: None Documented Code status: Full Code [Ordered] Current diet: Isolation: None Documented Allergies: Iron, NSAIDs, aspirin SUBJECTIVE Reason for consultation: Managment of Glanzmann Thrombasthenia in a patient with acute on chronic anemia with known ruptured ovarian cyst HPI: Ms Sekou Campbell is a 30 year old woman with known Glanzmanns thrombasthenia( heterozygous), HCV, and iron deficiency anemia presents on this admission after initialy suffering from a fall at home earlier today. She states that she was at her usual state of health where until yesterday afternoon she began experiencing left lower quadrant pain for which she went to [facility] and was shortly discharged after pain control. It was at home the morning of presentation that she began to notice weakness that is generalized as well as shortness of breath. She states that she collapsed and the last thing she remembered was being brought to [facility] for further care. In the ED, patient was noted to be anemia (most recent 6.3) afebrile and hemodynamically stable. On reviewing of imaging she was foudn to have a reuptured ovarian cyst. Hematology was consulted for glendy soto of Glanzsmanns thrombasthenia. Of note she has been noticing worsening ( heavier menstrual bleeding). Her last period was 5 days ago and her menses usually lasts about 3 weeks with 1 week between each cycle. Review of Symptoms: Const: denies fevers and chills Eyes: no blurry vision or change in vision ENT: no cough, no trouble swallowing Resp: no shortness of rbeath CV: no chest pain GI: no nausea or vomiting. See above HPI. : no dysuria or hematuria Skin: no rash. Noted ecchymosis on upper and lower extremities Drag Down: see HPI Heme: see HPI Neuro: no headache 10 point review of systems is negative unless stated above PAST MEDICAL HISTORY: Glanzmann Thrombastehnia Iron Deficiency Anemia Hepatitis C PAST SURGICAL HISTORY: Hernia Repair Cholecystectomy x2 Left ankle surgery for left distal tibia extra articular fracture SOCIAL HISTORY: Denies EtOH, illicits, smoking. Lives in [facility]. FAMILY HISTORY: No family hx of bleeding disorders, glanzmann or osteoporosis OBJECTIVE Physical Examination: General- Well-appearing female in NAD Eyes- PERRL, EOMI, sclerae anicteric ENT- oropharynx clear without any noted lesions CV- RRR, S1/S2 present, no m/g/r Chest- CTAB. No wheezing or crackles Abdomen- Soft. BS present. Tenderness to LLQ on palpation. Skin- Noted several ecchymotic lesions on bilateral lower extremities as well as upper extremities. Stiches in place at site of left ankle surgery wtih noted wound seperation of distal aspect of incision site. Neuro- Nonfocal CN II-XII grossly intact. Psych- Normal affect. 24hr Labs 06/28 1354 U Preg Negative WBC 4.8 RBC 2.18 L Hgb 6.3 C Hct 20.7 L MCV 95.1 MCH 29.1 MCHC 30.6 L RDW 20.6 H Platelet 115 L MPV 8.7 Segs 74.1 Monocytes 7.6 Lymphocytes 15.9 L Eosinophils 2.1 Basophils 0.3 Segs-Bands # 3.6 Lymphocytes # 0.8 L Monocytes # 0.4 Eosinophils # 0.1 Plt Morph Normal Anisocyte 1+ Hypochrom 1+ 06/28 0930 Total Protein 7.0 Albumin Lvl 3.3 L Bili Total 0.1 L Bili Direct 0.1 Bili Indirect 0.0 Alk Phos 89 AST 14 ALT 14 Globulin 3.7 A/G Ratio 0.9 06/28 0724 Glucose Lvl 118 H BUN 7 Creatinine Lvl 0.48 L Sodium Lvl 138 Potassium Lvl 4.0 Chloride Lvl 106 CO2 24 AGAP 12.0 Calcium Lvl 8.4 L eGFR 131 PT 13.3 INR 0.98 PTT 25.6 WBC 8.5 RBC 2.49 L Hgb 7.5 L Hct 23.7 L MCV 95.3 MCH 30.0 MCHC 31.5 L RDW 20.6 H Platelet 145 MPV 8.9 Segs 83.3 H Monocytes 5.3 Lymphocytes 9.7 L Eosinophils 1.3 Basophils 0.4 Segs-Bands # 7.1 Lymphocytes # 0.8 L Monocytes # 0.5 Eosinophils # 0.1 06/28 0724 ABO/Rh A POS Antibody Scrn Positive XM Gel Interp Incompatible XM Gel Interp Compatible XM Gel Interp Compatible XM Gel Interp Compatible [place] still necessary (Yes/No): Line still necessary (Yes/No): Vitals Tmp(F) Pulse BP RR SpO2 FIO2 06/28 12:00 98.4 64 102/64 -- 100 --- 06/28 06:57 98.1 74 133/61 -- 100 --- 06/28 06:02 98.2 81 105/65 18 99 --- 24 Hr Tmax: 98.4F (36.89c) at 06/28 12:00 Vital Signs are the last 5 in the past 48 hours. Date Wt(kg) Wt(lb) Ht(cm) Ht(in) Method 06/28 (initial) 81.82 180.00 Estimated 06/28 167.64 66.00 Stated I&O Record In Out Bal 06/28 24hr Tot 1000 0 1000 06/27 24hr Tot 0 0 0 06/29/15 Sodium Chloride 0.9% IV 250 mL (Sodium Chloride 0.9% (titrate) 250 mL ) 250 mL violin teacher for use with blood product administration ASSESSMENT & PLAN 29 y.o. F w/ Glanzmann Thrombasthenia, iron deficiency anemia, Hepatitis C who presents after a ruptured ovarian cyst and symptomatic anemia. She currently remains hemodynamically stable at this time. H azultolaina was consulted for management of known Glanzmanns thrombasthenia. #)Glanzmann's Thrombasthenia: -Patient is currently hemodynamically stable at this time. Recommend that if patient develops signs of active bleeding and hemodynamic instablity to transfuse 6 units of platelets and contact the hemato logy consult service as patient will also need recombinent factor VII. -Recommend checking CBC q 6 hrs over the next 24 hours. -If patient were to have an surgical intervention please contact hematology consultation service. #)Normocytic anemia secondary to acute bleeding from hemorrhagic ovarian cyst with h/o iron deficiency anemia: -Recommend transfusing 1 unit and rechecking hgb/hct 1 hour after receiving blood product. # Left ovarian hemorrhagic cyst: s/p plt transfusion. Case was discussed with the hematology fellow as well as Dr. Rothman and Dr. Sanchez. Please page hematology consultation service with any questions. Will continue to follow. I have seen and personally examined this patient today, together with the resident, Dr. Theodore. I agree with the history, exam, findings, and plans as noted in the Resident's notes of 06/29/15 and 06/29. S/p plt and PRBC transfusion. Continue Amicar 3gm q8h and bleeding precautions. Thanks for allowing us to participate in the care of this pt. Please do not hesitate to call us, if you have additional questions concerning her hematology care.
--- OUTSIDE RECORDS SUMMARY | 2018-08-09 17:09 | XMS REPORT | Summary of Care ---
:1985 Author Organization [facility] Address [address], [place] [address]- Care Team Providers Name Role Phone Kenny Bonds Sofiawiliam Primary Care Physician Unavailable Encounter HQ [email or web address](KAM) [id number] Date(s): 05/20/15 - 05/26/15 [facility] [address] [place] [address] Professional Services provided by [facility] [place] [address]- Final: Nondisplaced pilon fracture of unspecified tibia, initial encounter for closed fracture Discharge Disposition: Home Attending Physician: Alma Vázquez DO Admitting Physician: Peter Bills MD Vital Signs Most recent to oldest [Reference 1 2 3 Range]: Height 167.64 cm 167.64 cm (05/23/15 9:25 AM) (05/20/15 5:17 PM) Temperature Oral [96.4-99.1 DegF] 97.9 DegF 98.2 DegF 98.7 DegF (05/26/15 7:21 AM) (05/26/15 5:24 AM) (05/25/15 11:41 PM) Blood Pressure [90-140/60-90 100/80 mmHg 109/73 mmHg 107/72 mmHg mmHg] (05/26/15 7:21 AM) (05/26/15 5:24 AM) (05/25/15 11:41 PM) Respiratory Rate [14-20 BRMIN] 20 BRMIN 18 BRMIN 18 BRMIN (05/26/15 7:21 AM) (05/26/15 5:24 AM) (05/25/15 11:41 PM) Peripheral Pulse Rate [60-100 96 bpm 97 bpm 81 bpm bpm] (05/26/15 7:21 AM) (05/26/15 5:24 AM) (05/25/15 11:41 PM) Weight 72.727 kg 72.727 kg (05/23/15 9:25 AM) (05/20/15 5:17 PM) Body Mass Index 25.88 m2 25.88 m2 (05/23/15 9:25 AM) (05/20/15 5:17 PM) Problem List Condition Effective Dates Status Health Status Informant Cholecystitis(Confirmed) Resolved Glanzmann thromboasthenia(Confirmed) Resolved Hepatitis C(Confirmed) Resolved Allergies, Adverse Reactions, Alerts Substance Reaction Severity Status aspirin Active Iron Active NSAIDs Active Medications acetaminophen 1,000 mg, 100 mL, Route: IVPB, Drug form: INJ, Q6H, Dosing Weight 77.273, kg, Priority: NOW, Start date: 05/20/15 14:07:00, Duration: 48 hr, Stop date: 10:00:00 Notes: Infuse over 15 minutesDo not exceed 4gm/day of acetaminophen MEDICATION WASTE ProductSize: 1000 mgProduct Wasted: ___ mg Start Date: 05/20/15 Stop Date: 05/20/15 Status: Discontinuedacetaminophen 1,000 mg, 2 tab, Route: PO, Drug form: TAB, Q6H, Dosing Weight 72.727, kg, Priority: NOW, Start date: 05/21/15 17:26:00, Duration: 30 day, Stop date: 06/19 12:00:00 Notes: Max acetaminophen 4000 mg/day (4 gm/day). (Same as: Tylenol Extra Strength) Start Date: 05/21/15 Stop Date: 05/22/15 Status: Discontinuedacetaminophen-hydrocodone 325 mg-10 mg oral tablet 2 tab, Route: PO, Drug Form: TAB, Q4H, PRN Pain Score 4-6, Start date: 05/20/15 20:16:00, Stop date:06/19/15 20:15:00 Notes: Do not exceed 4gm/day of acetaminophen. (Same as: Aydlett 325/10) Start Date: 05/20/15 Stop Date: 05/21/15 Status: Discontinuedacetaminophen-hydrocodone 325 mg-10 mg oral tablet 1 tab, Route: PO, Drug Form: TAB, Q6H, PRN Pain 1-3/Temp > 100.4 F, Start date: 05/20/15 20:11:00, Duration: 30 day, Stop date: 06/19/15 20:10:00 Notes: Do not exceed 4gm/day of acetaminophen. (Same as: Aydlett 325/10) Start Date: 05/20/15 Stop Date: 05/20/15 Status: Discontinuedacetaminophen-hydrocodone 325 mg-10 mg oral tablet 1 tab, Route: PO, Drug Form: TAB, Q4H, PRN Pain 1-3/Temp > 100.4 F, Start date: 05/20/15 20:15:00, Duration: 30 day, Stop date: 06/19/15 20:14:00 Notes: Do not exceed 4gm/day of acetaminophen. (Same as: Aydlett 325/10) Start Date: 05/20/15 Stop Date: 05/21/15 Status: Discontinuedacetaminophen/butalbital/caffeine 325 mg-50 mg-40 mg oral capsule 1 tab, Route: PO, Drug Form: TAB, Dosing Weight 72.727, kg, Q6H, PRN Headache 1- 5, Start date: 05/20/15 20:55:00, Duration: 30 day, Stop date: 06/19/15 20:54:00 Notes: (wrwhxxuvmxkjs-jnhmhgukbn-sutmayeq 325-50-40mg) Do not exceed 4 gm/day of acetaminophen. (Same as: Esgic, Fioricet) Start Date: 05/20/15 Stop Date: 05/24/15 Status: Discontinuedacetaminophen/butalbital/caffeine 325 mg-50 mg-40 mg oral capsule 1 tab, Route: PO, Drug Form: TAB, Dosing Weight 72.727, kg, Daily, PRN Headache 1-5, Start date: 05/24/15 12:57:00, Duration: 30 day, Stop date: 06/23/15 12:56: 00 Notes: (gwpfvtyaexjfu-sohyywawne-qkgkfasx 325-50-40mg) Do not exceed 4 gm/day of acetaminophen. (Same as: Esgic, Fioricet) Start Date: 05/24/15 Stop Date: 05/25/15 Status: DiscontinuedAmicar + Sodium Chloride 0.9% IV 250 mL 3 gm, 12 mL, Route: IVPB, Drug form: INJ, Q8H, Dosing Weight 72.727, kg, Start date: 05/21/15 0:00:00, Duration: 9 doses or times, Stop date: 05/23/15 16:00:00 Notes: (Same as: Amicar) Start Date: 05/21/15 Stop Date: 05/23/15 Status: CompletedAmicar + Sodium Chloride 0.9% IV 250 mL 3 gm, 12 mL, Route: IV, Drug form: INJ, Q8H, Dosing Weight 72.727, kg, Start date: 05/24/15 16:00:00, Duration: 30 day, Stop date: 06/23/15 8:00:00 Notes: (Same as: Amicar) Start Date: 05/24/15 Stop Date: 05/26/15 Status: DiscontinuedAncef + Sodium Chloride 0.9% IV 100 mL 2 gm, Route: IVPB, Drug form: INJ, ABXQ8H, Dosing Weight 72.727, kg, Start date : 05/21/15 18:00:00, Duration: 1 day, Stop date: 05/22/15 10:00:00 Notes: (Same As: Ancef, Kefzol)Cefazolin FOR IV SET ONLY MEDICATION WASTE Product Size:1000 mgProduct Wasted: ___ mg Start Date: 05/21/15 Stop Date: 05/22/15 Status: CompletedclonazePAM 1 mg, 2 tab, Route: PO, Drug form: TAB, Q8Hnow, Dosing Weight 72.727, kg, Start date: 05/21/15 6:00:00, Stop date: 06/19/15 22:00:00 Notes: (Same As: KlonoPIN) Start Date: 05/21/15 Stop Date: 05/26/15 Status: DiscontinuedclonazePAM 0.5 mg, 1 tab, Route: PO, Drug form: TAB, TID, Dosing Weight 72.727, kg, Start date: 05/20/15 21:00:00, Duration: 30 day, Stop date: 06/19/15 17:00:00 Notes: (Same As: KlonoPIN) Start Date: 05/20/15 Stop Date: 05/21/15 Status: DiscontinuedDilaudid 2 mg, 1 mL, Route: IVP, Drug form: INJ, ONCE, Dosing Weight 72.727, kg, Priority : STAT, Start date: 05/21/15 18:56:00, Stop date: 05/21/15 18:56:00 Notes: Same as: Dilaudid Start Date: 05/21/15 Stop Date: 05/21/15 Status: CompleteddiphenhydrAMINE 25 mg, 1 cap, Route: PO, Drug form: CAP, Q6H, Dosing Weight 77.273, kg, PRN Itching, Start date: 05/20/15 14:03:00, Duration: 30 day, Stop date: 06/19/15 14 :02:00 Notes: (Same as: Benadryl) Start Date: 05/20/15 Stop Date: 05/26/15 Status: Discontinueddocusate 100 mg, 1 cap, Route: PO, Drug form: CAP, Q12H, Dosing Weight 72.727, kg, Start date: 05/21/15 21:00:00, Duration: 30 day, Stop date: 06/20/15 9:00:00 Notes: (Same as: Colace) (Do Not Crush) Start Date: 05/21/15 Stop Date: 05/26/15 Status: Discontinueddocusate 100 mg, 1 cap, Route: PO, Drug form: CAP, BID, Dosing Weight 77.273, kg, PRN Constipation, Start date: 05/20/15 14:03:00, Duration: 30 day, Stop date: 14:02:00 Notes: (Same as: Colace) (Do Not Crush) Start Date: 05/20/15 Stop Date: 05/21/15 Status: Discontinueddronabinol 5 mg, 1 cap, Route: PO, Drug form: CAP, Q12H, Dosing Weight 72.727, kg, Start date: 05/21/15 21:00:00, Duration: 30 day, Stop date: 06/20/15 9:00:00 Notes: (Same as: Marinol) Non-Formulary Drug. Start Date: 05/21/15 Stop Date: 05/26/15 Status: Discontinueddronabinol 5 mg, Route: PO, Drug form: CAP, Q12H, Dosing Weight 72.727, kg, Priority: NOW, Start date: 05/22/1609:22:00, Duration: 30 day, Stop date: 06/21/15 9:00:00 Start Date: 05/22/15 Stop Date: 05/22/15 Status: Discontinuedenoxaparin 30 mg, 0.3 mL, Route: SUB-Q, Drug form: INJ, Q12H, Dosing Weight 77.273, kg, Start date: 05/20/15 18:00:00, Duration: 30 day, Stop date: 06/19/15 6:00:00 Notes: (Same as: Lovenox) Start Date: 05/20/15 Stop Date: 05/20/15 Status: DiscontinuedfentaNYL 50 microgram, Route: IV, Drug form: INJ, ONCE, Dosing Weight 72.727, kg, PRN Pain Score 7-10, Start date: 05/21/15 17:51:00, Pediatric Dosing; For procedure ; > 50 kg Start Date: 05/21/15 Stop Date: 05/21/15 Status: CompletedfentaNYL 72.727 microgram, Route: IV, Drug form: INJ, ONCE, Dosing Weight 72.727, kg, PRN Pain Score 7-10, < 50 kg, Start date: 05/21/15 17:14:00, Pediatric Dosing ; For procedure Start Date: 05/21/15 Stop Date: 05/21/15 Status: Completedflumazenil 0.2 mg, 2 mL, Route: IVP, Drug form: INJ, PRN, Dosing Weight 72.727, kg, PRN Benzodiazepine Reversal, Initial dose, Start date: 05/21/15 17:02:00, Duration: 30 day, Stop date: 06/20/15 17:01:00 Notes: (Same as: Romazicon) Start Date: 05/21/15 Stop Date: 05/21/15 Status: Discontinuedgabapentin 300 mg, 1 cap, Route: PO, Drug form: CAP, Q8H, Dosing Weight 77.273, kg, Priority: NOW, Start date: 05/20/15 14:07:00, Duration: 30 day, Stop date: 06/18 8:00:00 Notes: (Same as: Neurontin) Start Date: 05/20/15 Stop Date: 05/20/15 Status: Discontinuedhydromorphone 0.5 mg, 0.25 mL, Route: IVP, Drug form: INJ, Q4H, Dosing Weight 72.727, kg, PRN Pain Score 7-10, Start date: 05/21/15 17:24:00, Duration: 30 day, Stop date: 08/30 17:23:00 Notes: Same as: Dilaudid Start Date: 05/21/15 Stop Date: 05/25/15 Status: Discontinuedhydromorphone 0.5 mg, 0.25 mL, Route: IVP, Drug form: INJ, Q5Min, Dosing Weight 72.727, kg, PRN Pain Score 7-10, Start date: 05/21/15 17:02:00, Duration: 4 doses or times, Stop date: 05/22/15 0:00:00 Notes: Same as: Dilaudid Start Date: 05/21/15 Stop Date: 05/21/15 Status: Completediron sucrose + Sodium Chloride 0.9% IV 250 mL 500 mg, 25 mL, Route: IVPB, Drug form: INJ, ONCE, Dosing Weight 72.727, kg, Start date: 05/24/15 12:10:00, Duration: 1 doses or times, Stop date: 05/24/15 12:10:00 Notes: Each 5ml contains 100mg elemental iron. Mix with NS(Same as:Venofer) Administer IV only. MEDICATION WASTE Product Size: 100 mgProduct Wasted : ___ mg Start Date: 05/24/15 Stop Date: 05/24/15 Status: Completediron sucrose + Sodium Chloride 0.9% IV 250 mL 475 mg, 23.75 mL, Route: IVPB, Drug form: INJ, ONCE, Dosing Weight 72.727, kg, Start date: 05/23/15 12:09:00, Duration: 1 doses or times, Stop date: 05/23/15 12:09:00 Notes: Each 5ml contains 100mg elemental iron. Mix with NS(Same as:Venofer) Administer IV only. MEDICATION WASTE Product Size: 100 mgProduct Wasted : ___ mg Start Date: 05/23/15 Stop Date: 05/23/15 Status: Completediron sucrose + Sodium Chloride 0.9% IV 50 mL 25 mg, 1.25 mL, Route: IVPB, Drug form: INJ, ONCE, Dosing Weight 72.727, kg, Dialysis, Start date: 05/23/15 12:09:00, Stop date: 05/23/15 12:09:00 Notes: Each 5ml contains 100mg elemental iron. Mix with NS(Same as:Venofer) Administer IV only. MEDICATION WASTE Product Size: 100 mgProduct Wasted : ___ mg Start Date: 05/23/15 Stop Date: 05/23/15 Status: Completedlidocaine topical patch (5% film) 2 patch, Route: TOP, Daily, Drug form: FILM, Start date: 05/22/15 18:00:00, Duration: 30 day, Stop date: 06/20/15 18:00:00 Notes: Apply only once for up to 12 hours in [id number] period (12 hours on and 12 hours off).(Same as: Lidoderm)"Remove old patch before application of new patch" Start Date: 05/22/15 Stop Date: 05/26/15 Status: DiscontinuedLR IV 1,000 mL 1,000 mL, Rate: 75 ml/hr, Infuse over: 13.3 hr, Route: IV, Dosing Weight 77.273 kg, Total Volume: 1,000, Start date: 05/20/15 14:09:00, Duration: 30 day, Stop date: 06/19/15 14:08:00 Start Date: 05/20/15 Stop Date: 05/26/15 Status: Discontinuedmethadone 5 mg, 1 tab, Route: PO, Drug form: TAB, Q8H, Dosing Weight 72.727, kg, Priority : NOW, Start date: 05/21/15 17:23:00, Stop date: 06/20/15 16:00:00 Notes: (Same as: Dolophine) Start Date: 05/21/15 Stop Date: 05/22/15 Status: Discontinuedmethadone 5 mg, 1 tab, Route: PO, Drug form: TAB, Q6H, Dosing Weight 72.727, kg, Start date: 05/22/15 22:00:00, Duration: 30 day, Stop date: 06/21/15 16:00:00 Notes: (Same as: Dolophine) Start Date: 05/22/15 Stop Date: 05/23/15 Status: Discontinuedmethadone 5 mg, 0.5 tab, Route: PO, Drug form: TAB, ONCE, Dosing Weight 72.727, kg, Priority: NOW, Start date:05/23/15 2:41:00, Stop date: 05/23/15 2:41:00 Notes: (Same as: Dolophine) Start Date: 05/23/15 Stop Date: 05/23/15 Status: Completedmethadone 5 mg, 1 tab, Route: PO, Drug form: TAB, Q12H, Dosing Weight 72.727, kg, Start date: 05/24/15 21:00:00, Duration: 30 day, Stop date: 06/23/15 9:00:00 Notes: (Same as: Dolophine) Start Date: 05/24/15 Stop Date: 05/26/15 Status: Discontinuedmethadone 5 mg, 1 tab, Route: PO, Drug form: TAB, ONCE, Dosing Weight 72.727, kg, Priority : NOW, Start date: 05/22/15 17:08:00, Stop date: 05/22/15 17:08:00 Notes: (Same as: Dolophine) Start Date: 05/22/15 Stop Date: 05/22/15 Status: Completedmethadone 5 mg, 1 tab, Route: PO, Drug form: TAB, Q8H, Dosing Weight 72.727, kg, Start date: 05/23/15 16:00:00, Duration: 30 day, Stop date: 06/22/15 8:00:00 Notes: (Same as: Dolophine) Start Date: 05/23/15 Stop Date: 05/24/15 Status: DiscontinuedMiraLax 17 gm, 1 pkt, Route: PO, Drug form: PWDR, Daily, Dosing Weight 72.727, kg, Start date: 05/21/15 9:00:00, Duration: 30 day, Stop date: 06/19/15 9:00:00 Notes: Dissolve in 8 oz of water or juice.(Same as: Miralax) Start Date: 05/21/15 Stop Date: 05/26/15 Status: Discontinuednaloxone 0.04 mg, 0.1 mL, Route: IVP, Drug form: INJ, Q2MIN, Dosing Weight 72.727, kg, PRN Narcotic Reversal,Start date: 05/21/15 17:02:00, Duration: 8 doses or times , Stop date: Limited # of times Notes: Same as Narcan Start Date: 05/21/15 Stop Date: 05/21/15 Status: DiscontinuedNeurontin 1,200 mg, 3 cap, Route: PO, Drug form: CAP, Q8H, Dosing Weight 72.727, kg, Start date: 05/21/15 0:00:00, Stop date: 06/19/15 16:00:00 Notes: (Same as: Neurontin) Start Date: 05/21/15 Stop Date: 05/26/15 Status: DiscontinuedNorco 10/325 oral tablet 1 tab, Route: PO, Drug Form: TAB, Dosing Weight 72.727, kg, Q4H, PRN Pain Score 6-10, Start date: 05/25/15 10:43:00, Duration: 30 day, Stop date: 06/24/15 10:42 :00 Notes: Do not exceed 4gm/day of acetaminophen. (Same as: Aydlett 325/10) Start Date: 05/25/15 Stop Date: 05/26/15 Status: DiscontinuedNorco 10/325 oral tablet 1 tab, Route: PO, Drug Form: TAB, Dosing Weight 72.727, kg, Q4H, Start date: 11/30 12:00:00, Duration: 30 day, Stop date: 06/24/15 8:00:00 Notes: Do not exceed 4gm/day of acetaminophen. (Same as: Aydlett 325/10) Start Date: 05/25/15 Stop Date: 05/26/15 Status: DiscontinuedNorco 10/325 oral tablet 1 tab, Route: PO, Drug Form: TAB, Dosing Weight 72.727, kg, Q4H, PRN Other -See Comment, Start date:05/25/15 10:43:00, Duration: 30 day, Stop date: 06/24/15 10: 42:00, Pain Score 4-10 Notes: Do not exceed 4gm/day of acetaminophen. (Same as: Aydlett 325/10) Start Date: 05/25/15 Stop Date: 05/25/15 Status: DiscontinuedNorco 10/325 oral tablet 1 tab, Route: PO, Drug Form: TAB, Dosing Weight 72.727, kg, ONCE, Start date: 23:37:00, Stop date: 05/25/15 23:37:00 Notes: Do not exceed 4gm/day of acetaminophen. (Same as: Aydlett 325/10) Start Date: 05/25/15 Stop Date: 05/26/15 Status: CompletedNorco 10/325 oral tablet 1 tab, PO, Q4H, PRN Pain Score 6-10, # 40 tab, 0 Refill(s) Start Date: 05/26/15 Status: OrderedNorco 10/325 oral tablet 2 tab, Route: PO, Drug Form: TAB, Dosing Weight 72.727, kg, Q4H, PRN Other -See Comment, Start date:05/22/15 10:24:00, Duration: 30 day, Stop date: 06/21/15 10: 23:00, Pain Score 4-10 Notes: Do not exceed 4gm/day of acetaminophen. (Same as: Aydlett 325/10) Start Date: 05/22/15 Stop Date: 05/25/15 Status: DiscontinuedNorco 10/325 oral tablet 2 tab, Route: PO, Drug Form: TAB, Dosing Weight 72.727, kg, Q6H, PRN Pain 4-6/ Temp > 100.4 F, Start date: 05/20/15 20:00:00, Duration: 30 day, Stop date: 07/31 19:59:00 Notes: Do not exceed 4gm/day of acetaminophen. (Same as: Aydlett 325/10) Start Date: 05/20/15 Stop Date: 05/20/15 Status: Discontinuedondansetron 4 mg, 2 mL, Route: IVP, Drug form: INJ, ONCE, Dosing Weight 72.727, kg, PRN Nausea & Vomiting, Start date: 05/21/15 17:02:00 Notes: (Same as: Rika) MEDICATION WASTE Product Size: 4 mgProduct Wasted: ___ mg Start Date: 05/21/15 Stop Date: 05/21/15 Status: Discontinuedondansetron 4 mg, 2 mL, Route: IVP, Drug form: INJ, Q6H, Dosing Weight 77.273, kg, PRN Nausea & Vomiting, Start date: 05/21/15 7:55:00, Duration: 30 day, Stop date : 06/20/15 7:54:00 Notes: (Same as: Zofran) MEDICATION WASTE Product Size: 4 mgProduct Wasted: ___ mg Start Date: 05/21/15 Stop Date: 05/26/15 Status: Discontinuedondansetron 4 mg, 2 mL, Route: IVP, Drug form: INJ, Q24H, Dosing Weight 77.273, kg, PRN Nausea & Vomiting, Start date: 05/20/15 14:03:00, Duration: 30 day, Stop date: 06/19/15 14:02:00 Notes: (Same as: Zofran) MEDICATION WASTE Product Size: 4 mgProduct Wasted: ___ mg Start Date: 05/20/15 Stop Date: 05/21/15 Status: DiscontinuedoxyCODONE 5 mg immediate release 10 mg, 2 tab, Route: PO, Drug form: TAB, Q4H, Dosing Weight 72.727, kg, PRN Pain Score 7-10, Start date: 05/21/15 17:23:00, Duration: 30 day, Stop date: 08/30 17:22:00 Notes: (Same as: Roxicodone) Start Date: 05/21/15 Stop Date: 05/22/15 Status: DiscontinuedoxyCODONE 5 mg immediate release 5 mg, 1 tab, Route: PO, Drug form: TAB, Q4H, Dosing Weight 77.273, kg, PRN Pain Score 4-6, Start date: 05/20/15 14:07:00, Duration: 30 day, Stop date: 06/19/15 14:06:00 Notes: (Same as: Roxicodone) Start Date: 05/20/15 Stop Date: 05/20/15 Status: DiscontinuedoxyCODONE 5 mg/5 mL oral solution 10 mg, 10 mL, Route: PO, Drug form: LIQ, ONCE, Dosing Weight 72.727, kg, Start date: 05/21/15 17:43:00, Stop date: 05/21/15 17:43:00 Notes: (Same as: 'Roxicodone) Start Date: 05/21/15 Stop Date: 05/21/15 Status: Completedremove patch 1 patch, Route: TOP, Daily, Drug form: ERFILM, Start date: 05/23/15 6:00:00, Duration: 30 day, Stop date: 06/21/15 6:00:00 Notes: Remove patch 12 hours after application each day. Start Date: 05/23/15 Stop Date: 05/26/15 Status: DiscontinuedRobaxin 1,000 mg, 2 tab, Route: PO, Drug form: TAB, Q8H, Dosing Weight 72.727, kg, Start date: 05/21/15 8:00:00, Duration: 30 day, Stop date: 06/20/15 0:00:00 Notes: (Same as:Robaxin) Start Date: 05/21/15 Stop Date: 05/26/15 Status: Discontinuedsenna 17.2 mg, 2 tab, Route: PO, Drug Form: TAB, Dosing Weight 72.727, kg, Bedtime, Start date: 05/21/15 21:00:00, Duration: 30 day, Stop date: 06/19/15 21:00:00 Notes: (Same as: Senokot) Start Date: 05/21/15 Stop Date: 05/26/15 Status: Discontinuedsenna 17.2 mg, 2 tab, Route: PO, Drug Form: TAB, Dosing Weight 72.727, kg, Bedtime, Start date: 05/21/15 21:00:00, Duration: 30 day, Stop date: 06/19/15 21:00:00 Notes: (Same as: Senokot) Start Date: 05/21/15 Stop Date: 05/22/15 Status: Discontinuedtramadol 100 mg, 2 tab, Route: PO, Drug form: TAB, Q6H-02, Dosing Weight 72.727, kg, Start date: 05/21/15 8:00:00, Duration: 30 day, Stop date: 06/20/15 2:00:00 Notes: Not to exceed 400mg/day. (Same As: Ultram) Start Date: 05/21/15 Stop Date: 05/26/15 Status: Discontinuedtrazodone 50 mg, 1 tab, Route: PO, Drug form: TAB, Bedtime, Dosing Weight 72.727, kg, Start date: 05/21/15 21:00:00, Duration: 30 day, Stop date: 06/19/15 21:00:00 Notes: (Same As: Angélicael) Start Date: 05/21/15 Stop Date: 05/26/15 Status: Discontinued Results BLOOD BANK RESULTS Most recent to oldest 1 2 3 [Reference Range]: ABO/Rh A POS *Unknown* (05/21/15 4:55 AM) Antibody Scrn Negative (05/21/15 4:55 AM) Platelet product Product available Product available Product available (05/22/15 11:04 AM) (05/21/15 11:30 AM) (05/21/15 10:00 AM) RBC product Product available (05/22/15 6:51 AM) ELECTROLYTES Most recent to oldest [Reference Range]: 1 2 3 Sodium Lvl [135-145 mEq/L] 140 mEq/L (05/21/15 4:55 AM) Potassium Lvl [3.5-5.1 mEq/L] 3.8 mEq/L (05/21/15 4:55 AM) Chloride Lvl [95-109 mEq/L] 110 mEq/L *HI* (05/21/15 4:55 AM) CO2 [24-32 mEq/L] 23 mEq/L *LOW* (05/21/15 4:55 AM) AGAP [10.0-20.0 mEq/L] 10.8 mEq/L (05/21/15 4:55 AM) CHEM PANEL Most recent to oldest [Reference Range]: 1 2 3 Creatinine Lvl [0.50-1.40 mg/dL] 0.46 mg/dL *LOW* (05/21/15 4:55 AM) eGFR 133 mL/min/1.73m2 1 *NA* (05/21/15 4:55 AM) BUN [7-22 mg/dL] 10 mg/dL (05/21/15 4:55 AM) Glucose Lvl [70-99 mg/dL] 78 mg/dL (05/21/15 4:55 AM) Calcium Lvl [8.5-10.5 mg/dL] 8.2 mg/dL *LOW* (05/21/15 4:55 AM) 1Result Comment: The eGFR is calculated [...] Range]: 1 2 3 Iron [30-160 ug/dl] 49 ug/dl (05/22/15 2:03 PM) Ferritin Lvl [5-204 ng/mL] 145 ng/mL (05/22/15 2:03 PM) % Satur Fe [12-57 %] 17 % (05/22/15 2:03 PM) UIBC [110-370 ug/dl] 243 ug/dl (05/22/15 2:03 PM) TIBC [228-428 ug/dl] 292 ug/dl (05/22/15 2:03 PM) URINE CHEM Most recent to oldest [Reference Range]: 1 2 3 U Preg [Negative] Negative (05/21/15 4:55 AM) HEMATOLOGY Most recent to oldest 1 2 3 [Reference Range]: WBC [3.7-10.4 K/CMM] 5.1 K/CMM 5.3 K/CMM 4.8 K/CMM (05/26/15 4:38 AM) (05/25/15 5:22 AM) (05/24/15 4:31 AM) RBC [4.20-5.40 M/CMM] 2.88 M/CMM 2.62 M/CMM 2.67 M/CMM *LOW* *LOW* *LOW* (05/26/15 4:38 AM) (05/25/15 5:22 AM) (05/24/15 4:31 AM) Hgb [12.0-16.0 g/dL] 7.8 g/dL 7.1 g/dL 7.2 g/dL *LOW* *LOW* *LOW* (05/26/15 4:38 AM) (05/25/15 5:22 AM) (05/24/15 4:31 AM) Hct [36.0-48.0 %] 25.1 % 22.5 % 22.6 % *LOW* *LOW* *LOW* (05/26/15 4:38 AM) (05/25/15 5:22 AM) (05/24/15 4:31 AM) MCV [80.0-98.0 fL] 87.3 fL 85.8 fL 84.4 fL (05/26/15 4:38 AM) (05/25/15 5:22 AM) (05/24/15 4:31 AM) MCH [27.0-31.0 pg] 27.3 pg 27.0 pg 26.8 pg (05/26/15 4:38 AM) (05/25/15 5:22 AM) *LOW* (05/24/15 4:31 AM) MCHC [32.0-36.0 g/dL] 31.2 g/dL 31.4 g/dL 31.7 g/dL *LOW* *LOW* *LOW* (05/26/15 4:38 AM) (05/25/15 5:22 AM) (05/24/15 4:31 AM) RDW [11.5-14.5 %] 19.1 % 18.8 % 18.8 % *HI* *HI* *HI* (05/26/15 4:38 AM) (05/25/15 5:22 AM) (05/24/15 4:31 AM) Platelet [133-450 K/CMM] 179 K/CMM 158 K/CMM 135 K/CMM (05/26/15 4:38 AM) (05/25/15 5:22 AM) (05/24/15 4:31 AM) MPV [7.4-10.4 fL] 8.8 fL 8.7 fL 9.0 fL (05/26/15 4:38 AM) (05/25/15 5:22 AM) (05/24/15 4:31 AM) Segs [45.0-75.0 %] 57.5 % 62.5 % 60.2 % (05/26/15 4:38 AM) (05/25/15 5:22 AM) (05/24/15 4:31 AM) Lymphocytes [20.0-40.0 %] 24.1 % 21.7 % 23.0 % (05/26/15 4:38 AM) (05/25/15 5:22 AM) (05/24/15 4:31 AM) Monocytes [2.0-12.0 %] 9.3 % 8.8 % 10.0 % (05/26/15 4:38 AM) (05/25/15 5:22 AM) (05/24/15 4:31 AM) Eosinophils [0.0-4.0 %] 8.4 % 6.7 % 6.4 % *HI* *HI* *HI* (05/26/15 4:38 AM) (05/25/15 5:22 AM) (05/24/15 4:31 AM) Basophils [0.0-1.0 %] 0.7 % 0.3 % 0.4 % (05/26/15 4:38 AM) (05/25/15 5:22 AM) (05/24/15 4:31 AM) Segs-Bands # [1.5-8.1 K/CMM] 2.9 K/CMM 3.3 K/CMM 2.9 K/CMM (05/26/15 4:38 AM) (05/25/15 5:22 AM) (05/24/15 4:31 AM) Lymphocytes # [1.0-5.5 K/CMM] 1.2 K/CMM 1.2 K/CMM 1.1 K/CMM (05/26/15 4:38 AM) (05/25/15 5:22 AM) (05/24/15 4:31 AM) Monocytes # [0.0-0.8 K/CMM] 0.5 K/CMM 0.5 K/CMM 0.5 K/CMM (05/26/15 4:38 AM) (05/25/15 5:22 AM) (05/24/15 4:31 AM) Eosinophils # [0.0-0.5 K/CMM] 0.4 K/CMM 0.4 K/CMM 0.3 K/CMM (05/26/15 4:38 AM) (05/25/15 5:22 AM) (05/24/15 4:31 AM) PT [12.0-14.7 seconds] 14.1 seconds 13.5 seconds (05/21/15 4:55 AM) (05/20/15 5:43 PM) INR [0.85-1.17] 1.06 1.00 (05/21/15 4:55 AM) (05/20/15 5:43 PM) PTT [22.9-35.8 seconds] 28.2 seconds 24.1 seconds (05/21/15 4:55 AM) (05/20/15 5:43 PM) MOLECULAR DIAGNOSTIC Most recent to oldest [Reference Range]: 1 2 3 HCV RNA VirLoad [id number] IU/mL *NA* (05/22/15 2:03 PM) HCV RNA Log10 6.2 IU/mL *NA* (05/22/15 2:03 PM) Immunizations No data available for this section Procedures Procedure Date Related Diagnosis Body Site External fixation 04/2015 Cholecystectomy 2015 Hernia repair 1995 section Social History Social History Type Response [...] No Assessment and Plan Extracted from: Title: ORTHO TRAUMA Author: Stacy Fay OPERATIONS AGENT Date: 05/26/15 ORS TRAUMA Doing ok NAD Comfortable Resting in bed Vitals and Temp: Vitals Tmp(F) Pulse BP RR SpO2 FIO2 05/26 05:24 98.2 97 109/73 18 98 --- 05/25 23:41 98.7 81 107/72 18 97 --- 05/25 21:49 99.3 85 102/67 18 98 --- 05/25 10:10 ---- 82 101/52 13 --- --- 05/25 10:05 ---- 80 112/55 12 --- --- 24 Hr Tmax: 99.3F (37.39c) at 05/25 21:49 Vital Signs are the last 5 in the past 48 hours. Scheduled Meds (14):acetaminophen-hydrocodone (Aydlett 10/325 oral tablet), aminocaproic acid + Sodium Chloride 0.9% IV 250 mL (Amicar + Sodium Chloride 0.9 % IV 250 mL), clonazePAM, docusate, dronabinol, gabapentin (Neurontin), lidocaine topical (lidocaine topical patch (5% film)), methadone, methocarbamol (Robaxin), polyethylene glycol 3350 (MiraLax), remove patch, senna, tramadol, trazodone Unscheduled Meds: None PRN Meds (3):acetaminophen-hydrocodone (Aydlett 10/325 oral tablet), diphenhydrAMINE, ondansetron One Time Meds (1):(Completed) acetaminophen-hydrocodone (Aydlett 10/325 oral tablet) Continuous Infusions (1):Lactated Ringers Injection IV 1,000 mL (LR IV 1,000 mL ) [facility] BUN: 10 mg/dL (05/21/15) Hct: 25.1 % (05/26/15) Hgb: 7.8 g/dL (05/26/15) MCH: 27.3 pg (05/26/15) MCHC: 31.2 g/dL (05/26/15) MCV: 87.3 fL (05/26/15) MPV: 8.8 fL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
--- OUTSIDE RECORDS SUMMARY | 2018-08-09 17:10 | XMS REPORT ---
:1985 [facility] Address [address] [place] [address] Dr. Tierney [address] [place] [id number] Care Team Providers Name Role Phone Unavailable Unavailable Unavailable Problems This patient has no known problems. Allergies, Adverse Reactions, Alerts This patient has no known allergies or adverse reactions. Medications This patient has no known medications.
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
[2018-08-09 18:58] VITALS: TEMP 98.2; O2SAT 96
[2018-08-09 19:01] VITALS: BP 133/67
== END 2018-08-09 18:02 | disposition home or self-care (01) ==
LOC: ER 16:51
DX: O26.892 Other specified pregnancy related conditions, second trimester (principal); M54.5 Low back pain; Z3A.19 19 weeks gestation of pregnancy; Z88.6 Allergy status to analgesic agent
CPT/HCPCS: 99284

== ENCOUNTER 2019-07-09 07:04 | Emergency (ER) | payer OTHER, SELFPAY ==
--- OUTSIDE RECORDS SUMMARY | 2019-07-09 07:18 | XMS REPORT ---
:1985 [facility] Organization [facility] Address [facility]ly [facility] Tierney [address] [place] [address] Care Team Providers Name Role Phone Unavailable Unavailable Unavailable Problems This patient has no known problems. Allergies, Adverse Reactions, Alerts This patient has no known allergies or adverse reactions. Medications This patient has no known medications.
--- OUTSIDE RECORDS SUMMARY | 2019-07-09 07:19 | XMS REPORT | Summary of Care ---
:1985 Author Organization [facility] Address [address] [place] [address] Care Team Providers Name Role Phone Orthopedics, Tdc Unavailable Unavailable Rimma Duran Primary Care Provider Reason for Visit Reason Comments Care MFM Visit NON-STRESS TEST Encounter Details Date Type Department Care Team Description 11/15/[address] [facility] Modesto De La Rosa MD [address] [place] [address] Supervision of high risk in third trimester ( Primary Dx); Visit [facility] Placental abnormality, antepartum; [address] [place] Glanzmann's thrombosthenin disorder; [place], [place] Chronic hepatitis C without hepatic coma; [id number] Obesity in [phone] Allergies Active Allergy Reactions Severity Noted Date Comments Aspirin Unknown - See comments 12/24/2009 Unable to take d/t clotting disorder. Penicillin Unknown - See comments 06/05/2016 documented as of this encounter (statuses as of 11/15/2018) Medications Medication Sig Dispensed Refills Start Date End Date Status PNV 67-iron ps-folate Take 1 Each by 30 capsule 7 07/20/2018 Active no.1-dha (VITAFOL mouth daily. ULTRA) 29 mg iron- 1 mg-200 mg CapIndications: Supervision of high risk in second trimester vitamin B-12 500 mcg Take 500 mcg by 0 Active tablet mouth daily. vitamin C 100 mg Take 100 mg by 0 Active tablet mouth daily. ferrous sulfate 325 mg Take 1 tablet by 100 tablet 3 10/16/2018 Active (65 mg iron) mouth 2 (two) tabletIndications: times daily. 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 06/05/2018 Overview: Schedule patient for colpo 6 weeks pp Multiparity 05/29/2018 History of section 05/29/2018 Overview: X2 Supervision of high-risk 05/29/2018 Obesity in 09/08/2016 Glanzmann's thrombosthenin disorder 08/08/2016 Chronic hepatitis C without hepatic coma 08/08/2016 Estimated Date of Delivery Comments Yes 01/06/2019 Based on last menstrual period of 04/01/2018 (Exact Date) documented as of this encounter (statuses as of 11/15/2018) Resolved Problems Problem Noted Date Resolved Date Anemia of mother in , antepartum 08/02/2018 10/09/2018 Nausea and vomiting during 06/26/2018 10/09/2018 Headache in 06/26/2018 10/09/2018 Susceptible to varicella (non-immune), currently 05/30/20182018 Overview: Address pp Surgery, elective 02/02/2017 05/29/2018 Ankle fracture, bimalleolar, closed, left, sequela 02/02/2017 10/09/2018 Overview: Added automatically from request for surgery [id number] Cellulitis 12/30/2016 05/29/2018 Infection 12/29/2016 05/29/2018 Bleeding disorder 11/27/2016 05/29/2018 Pain 11/25/2016 05/29/2018 Bleeding 10/19/2016 05/29/2018 Pain, dental 10/11/2016 05/29/2018 Overview: Added automatically from request for surgery [id number] Infection of bone of left ankle 09/09/2016 10/09/2018 Unspecified dental caries 08/08/2016 05/29/2018 Tooth pain 08/08/2016 05/29/2018 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 06/05/2016 11/03/2016 Anemia 05/21/2016 05/29/2018 documented as of this encounter (statuses as of 11/15/2018) Immunizations Name Administration Dates Next Due TDAP (ADACEL) VACCINE 10/15/2018 documented as of this encounter Social History Tobacco Use Types Packs/Day Years Used Date Former Smoker Cigarettes 0.1 1.5 Quit: 06/21/2015 Smokeless Tobacco: Never Used Comments: 1 pack per week; quit 2015 Alcohol Use Drinks/Week oz/Week Comments No 0 Standard drinks or equivalent 0.0 occasionally Estimated Date of Delivery Comments Yes 01/06/2019 Based on last menstrual period of 04/01/2018 (Exact Date) Sex Assigned at Date Recorded Not on file Job Start Date Occupation Industry Not on file Not on file Not on file Travel History Travel Start Travel End No recent travel history available. documented as of this encounter Last Filed Vital Signs Vital Sign Reading Time Taken Comments Blood Pressure 123/68 11/15/2018 2:28 PM CDT Pulse 73 11/15/2018 2:28 PM CDT Temperature 36.9 C (98.4 F) 11/15/2018 2:28 PM CDT Respiratory Rate 16 11/15/2018 2:28 PM CDT Oxygen Saturation - - Inhaled Oxygen Concentration - - Weight 110.3 kg (243 lb 3 oz) 11/15/2018 2:28 PM CDT Height 167.6 cm (5' 6") 11/15/2018 2:28 PM CDT Body Mass Index 39.25 11/15/2018 2:28 PM CDT documented in this encounter Progress Notes Modesto De La Rosa MD - 11/15/2018 2:30 PM CDT SEKOU CAMPBELL #: [id number] Date of service: 11/15/2018 15:14 Routine Visit CC: MFM visit , Routine visit SUBJECTIVE: Patient has no complaints. Denies bleeding, LOF, contractions. Feeling active movement. Pt is 32w4d IUP. She denies any pain today. 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 06/05/2018 B12 deficiency Clotting disorder 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 IF SURGERY- consult Heme; 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[facility], requires multiple platelets and PRBC transfusions, frequent intermittent epistaxis, oral bleeding , menorrhagia, hematochezia, melena HCV (hepatitis C virus) Iron deficiency Transfusion history Social History Socioeconomic History Marital status: Single Spouse name: Not on file Number of children: Not on file Years of education: Not on file Highest education level: Not on file Occupational History 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 Social Needs Financial resource strain: Not on file Food insecurity: Worry: Not on file Inability: Not on file Transportation needs: Medical: Not on file Non-medical: Not on file Tobacco Use Smoking status: Former Smoker Packs/day: 0.10 Years: 1.50 Pack years: 0.15 Types: Cigarettes Last attempt to quit: 06/21/2015 Years since quittin.4 Smokeless tobacco: Never Used Tobacco comment: 1 pack per week; quit 2015 Substance and Sexual Activity Alcohol use: No Alcohol/week: 0.0 oz Comment: occasionally Drug use: No Sexual activity: Yes Partners: Male control/protection: None Comment: last intercourse 05/27/2018 Lifestyle Physical activity: Days per week: Not on file Minutes per session: Not on file Stress: Not on file Relationships Social connections: Talks on phone: Not on file Gets together: Not on file Attends jain service: Not on file Active member of club or organization: Not on file Attends meetings of clubs or organizations: Not on file Relationship status: Not on file Intimate partner violence: Fear of current or ex partner: Not on file Emotionally abused: Not on file Physically abused: Not on file Forced sexual activity: Not on file Other Topics Concern Not on file Social History Narrative Not on file . Family History Problem Relation Age of Onset Diabetes Father Cancer Mother Ovarian Cancer OBJECTIVE: BP 123/68 (BP Location: Right arm, Patient Position: Sitting, BP CUFF SIZE: Adult Small) | Pulse 73 | Temp 36.9 C (98.4 F) (Oral) | Resp 16 | Ht 5' 6 " (1.676 m) | Wt 243 lb 3 oz (110.3 kg) | LMP 04/01/2018 (Exact Date) | BMI 39.25 kg/m Normalized mxdjngh-nje-sdc data not available for patients older than 20 years. Normalized emrbka-cdf-jfd data not available for patients older than 20 years. No head circumference on file for this encounter. General: no acute distress and alert Respiratory: chest non-tender, no respiratory distress Abdomen: soft, non-tender,gravid size=dates Back: non-tender, normal inspection, painless range of motion and (-) CVA tenderness Skin: intact and warm, dry Extremities: normal range of motion and gait normal Neuro/Psych: alert, oriented x3, cooperative, interactive and mood/affect normal WBC x10^3 (/CMM) Date Value 12/24/2009 6.9 03/30/2004 4.9 WBC (10*3/L) Date Value 11/01/2018 7.66 10/15/2018 7.53 HGB Date Value 11/01/2018 10.0 g/dL (L) 10/15/2018 9.0 g/dL (L) 12/24/2009 9.2 G/DL (L) 03/30/2004 6.9 G/DL (L) HCT (%) Date Value 11/01/2018 32.8 (L) 10/15/2018 30.5 (L) 12/24/2009 30.9 (L) 03/30/2004 23.7 (L) PLT x10^3 (/CMM) Date Value 12/24/2009 203 03/30/2004 171 PLT (10*3/L) Date Value 11/01/2018 153 (L) 10/15/2018 145 (L) AST(SGOT) (U/L) Date Value 08/02/2018 23 05/21/2016 26 12/24/2009 32 12/23/2003 40 ALT(SGPT) (U/L) Date Value 08/02/2018 30 05/21/2016 25 12/24/2009 28 12/23/2003 44 CREATININE Date Value 08/02/2018 0.39 mg/dL (L) 02/09/2017 0.50 mg/dL 12/24/2009 0.66 MG/DL 02/15/2004 0.58 MG/DL (L) PROTEIN (no units) Date Value 05/21/2016 Negative Routine Visit on 11/15/2018 Component Date Value Ref Range Status POCT U SP GRAV 11/15/2018 . 1.005 - 1.025 mg/dl Final POCT PH U 11/15/2018 7 5 - 8 mg/dl Final POCT U LEUK EST 11/15/2018 neg Negative - Negative Final POCT U NIT 11/15/2018 neg Negative - Negative Final POCT U PROT 11/15/2018 trace Negative - Negative Final POCT U GLU 11/15/2018 neg Negative - Negative Final POCT U KETONE 11/15/2018 neg Negative - Negative Final POCT U UROBILI 11/15/2018 . 0.2 - 1 mg/dl Final POCT U BILI 11/15/2018 . Negative - Negative Final POCT U BLD 11/15/2018 neg Negative - Negative Final Routine Visit on 11/12/2018 Component Date Value Ref Range Status POCT U SP GRAV 11/12/2018 . 1.005 - 1.025 mg/dl Final POCT PH U 11/12/2018 7 5 - 8 mg/dl Final POCT U LEUK EST 11/12/2018 Neg Negative - Negative Final POCT U NIT 11/12/2018 Neg Negative - Negative Final POCT U PROT 11/12/2018 Trace Negative - Negative Final POCT U GLU 11/12/2018 Neg Negative - Negative Final POCT U KETONE 11/12/2018 None Negative - Negative Final POCT U UROBILI 11/12/2018 . 0.2 - 1 mg/dl Final POCT U BILI 11/12/2018 . Negative - Negative Final POCT U BLD 11/12/2018 Neg Negative - Negative Final Immunization History Administered Date(s) Administered TDAP (ADACEL) VACCINE 10/15/2018 Radiology: I have reviewed the patient's Radiology report(s). Assessment and Plan :33 year old 32w4d intrauterine OB History Para Term AB Living 4 3 3 0 3 SAB TAB Ectopic Multiple Live Births 3 # Outcome Date GA Lbr Jacob/2nd Weight Sex Delivery Anes PTL Lv 4 Current 3 Term 09/03/08 38w0d 6 lb 9 oz (2.977 kg) M SEC NOEMY 2 Term 02/28/07 39w0d 7 lb 14 oz (3.572 kg) F SEC NOEMY 1 Term 02/15/04 40w0d 8 lb 13.1 oz (4 kg) F VAGINAL NOEMY Current Outpatient Medications Medication Sig Dispense Refill ferrous sulfate 325 mg (65 mg iron) tablet Take 1 tablet by mouth 2 (two) times daily. 100 tablet 3 vitamin B-12 500 mcg tablet Take 500 mcg by mouth daily. vitamin C 100 mg tablet Take 100 mg by mouth daily. PNV 67-iron ps-folate no.1-dha (VITAFOL ULTRA) 29 mg iron- 1 mg-200 mg Cap Take 1 Each by mouth daily. 30 capsule 7 No current facility-administered medications for this visit. 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 Glanzmann's thrombasthenia [ ] Dr. Bishop reviewing case with her team and will make recommendations [x] Heme 09/06 [x] Anesthesia eval 09/19 [ ] NST twice per week [ ] USG q3 wks [X] s/p case conference [ ] Dr. Bishop reviewing case with her team and will make recommendations blood - , may need plasmaphoresis prior to delivery - Delivery plan 2 units platelets Novoseven TXA Uterotonics 2. Anemia - treated with IV iron , Vitamin B12 - followed by hematology 3. HCV - Viral load 5.4 million IU/mlComment: - 4. Prior c/s x 2 Under GETA, complicated by intra-op bleeding requiring transfusions. Saw anesthesia at [facility] on 09/19. For RCD on 12/31. 5. Many platelet HLA antibodies 6. Placental mass 09/19: "Large preplacental mass 11.7x 8.6 x 12.7cmon 11/01. Heterogenous in appearance with venous "swirling" noted suggest that this is area of preplacental bleeding/hemorrhage. The cord insertion appears to be at least 2 or 3 cm from it currently. I did counseling her that this could put baby at increase risk for adverse outcome but hard to determine. Would recommend US every 3 to 4 weeks and NSTsat 28 to 30 weeks". Differential diagnosis include chorioangioma. No evidence of hydrops noted. FOLLOW-UP growth: on 10/22 shows fetus measuring at the 52nd%ile. On 11/14 50th%ile RTC 1 week. Plan of care, YAHIR platt precautions documented in this encounter Plan of Treatment Date Type Specialty Care Team Description 11/15/2018 Ancillary Procedure OB Satellites Modesto De La Rosa MD Arrived [address] [place] [id number] 11/19/2018 Routine OB Satellites 1, Ad-Rmchp Nst Visit Ultrasound 11/19/2018 Routine OB Satellites Ad Villarrealchjayesh Visit [facility] 11/22/2018 Routine OB Satellites 1, Ad-Rmchp Nst Visit Ultrasound 11/22/2018 Routine OB Satellites Rimma Duran, Visit PROGRAM MEDICAL DIRECTOR [address] [facility] [place] [address] [phone] 11/22/2018 Quilting Machine Operator Visit Maternal Inga Moore MD [address] [facility] [id number] [place], [place] [id number] Medicine 5, [facility] Usg Room 11/29/2018 Quilting Machine Operator Visit Maternal Medicine 12/06/2018 Quilting Machine Operator Visit Maternal Medicine 12/13/2018 Quilting Machine Operator Visit Maternal 2, [facility] Usg Room Medicine 12/20/2018 Quilting Machine Operator Visit Maternal Medicine 12/27/2018 Quilting Machine Operator Visit Maternal Medicine 12/31/2018 Hospital Encounter Obstetrics TeresaInga somers MD [address] [facility] [id number] [place], [place] [address] 12/31/2018 Surgery Surgery Faculty, Ob SECTION [address] [place] [address] 01/03/2019 Quilting Machine Operator Visit Maternal 3, [facility] Mfm Usg Room Medicine Health Maintenance Due Date Last Done Comments PNEUMOCOCCAL 0-64 YEARS COMBINED SERIES (1 1990 of 1 - PPSV23) INFLUENZA VACCINE 12/16/2018 06/05/2014 PAP SMEAR 05/29/2021 05/29/2018, 03/30/2004 DTaP,Tdap,and Td Vaccines (2 - Td) 10/15/2028 10/15/2018 documented as of this encounter Implants Implanted Type Area Civil Engineer'S Aide Device Shelf Model / Identifier Expiration Date Serial / Lot Nail T2 Ankle Arthrodesis [id number] Left Weston F & A #[id number] - S0 NAIL Left: Weston 09/14/2021 [id number] / Implanted: Qty: 1 on 03/03/2017 by Dewayne Felix MD at [facility] Ankle 0 / [id number] Pin, Tamanna Self-Drilling Half [place] 5mm 150 X 25mm #[id number] PIN Left: Tamanna 08/15/2019 [id number] / Implanted: Qty: 1 on 11/25/2016 by Dewayne Felix MD at [facility] Ankle 0000 / [id number] Hexapod Strut PIN Left: Weston 11/25/2026 4935-0-040 / Implanted: Qty: 2 on 11/25/2016 by Dewayne Felix MD at [facility] Ankle 0000 / 000 Pin, Tamanna Self-Drilling Half [place] 5mm 150 X 25mm #[id number] PIN Left: Weston 07/15/2021 [id number] / Implanted: Qty: 1 on 11/25/2016 by Dewayne Felix MD at [facility] Ankle 0000 / [id number] Pin, Tamanna Self-Drilling Half [place] 5mm 150 X 25mm #[id number] PIN Left: Weston 04/16/2021 [id number] / Implanted: Qty: 1 on 11/25/2016 by Dewayne Felix MD at [facility] Ankle 0000 / [id number] Pin, Tamanna Self-Drilling Half [place] 5mm 150 X 25mm #[id number] PIN Left: Tamanna 04/16/2021 [id number] / Implanted: Qty: 1 on 11/25/2016 by Dewayne Felix MD at [facility] Ankle 0000 / [id number] Pin, Tamanna Self-Drilling Half [place] 5mm 150 X 25mm #[id number] PIN Left: Weston 07/15/2021 [id number] / Implanted: Qty: 1 on 11/25/2016 by Dewayne Felix MD at [facility] Ankle 0000 / [id number] Wire Sycamore - Medium 1.5 To 2.0 Mm PIN Left: Weston 11/25/2026 4933-1- 002 / Implanted: Qty: 2 on 11/25/2016 by Dewayne Felix MD at [facility] Ankle 0000 / 0000 Wire Sycamore Adapter Short PIN Left: Tamanna 11/25/2026 4933-1-004 / Implanted: Qty: 2 on 11/25/2016 by Dewayne Felix MD at [facility] Ankle 0000 / 0000 [place] Pin Adaptor, Short 6mm # 4933-1-020 - S0000 PIN Left: Weston 2019 4933-1-020 / Implanted: Qty: 3 on 11/25/2016 by Dewayne Felix MD at [facility] Ankle 0000 / 0000 Hexapod Strut Medium PIN Left: Weston 4935-0-030 / Implanted: Qty: 6 on 11/25/2016 by Dewayne Felix MD at [facility] Ankle 0000 / 0000 Foot Arch RING Left: Tamanna 11/25/2026 4934-6-180 / Implanted: Qty: 1 on 11/25/2016 by Dewayne Felix MD at [facility] Ankle 0000 / 0000 Screw, Tamanna 5 X 30mm Fully Thrded Locking #[id number] - S0 SCREW Left: Tamanna 06/14/2021 [id number] / Implanted: Qty: 1 on 03/03/2017 by Dewayne Felix MD at [facility] Ankle 0 / [id number] Screw, Tamanna 5 X 50mm Fully Thrded Locking #1896-5050s - S0 SCREW Left: Weston 10/14/2020 [id number] / Implanted: Qty: 1 on 03/03/2017 by Dewayne Felix MD at [facility] Ankle 0 / [id number] Screw Headless Compression [id number] Weston #[id number] - S0 SCREW Left: Weston 03/03/2027 [id number] / Implanted: Qty: 1 on 03/03/2017 by Dewayne Felix MD at [facility] Ankle 0 / 0 K Wire [id number] WIRE Left: Weston 11/25/2026 [id number] / Implanted: Qty: 2 on 11/25/2016 by Dewayne Felix MD at [facility] Ankle 0000 / 0000 Wire With [place] - Kathryn 2.0 X 450 Mm WIRE Left: Tamanna 11/25/2026 4933-8- 040 / Implanted: Qty: 2 on 11/25/2016 by Dewayne Felix MD at [facility] Ankle 0000 / 0000 Sycamore External Fixation 1.5mm-2mm Kathryn Short Carbon #4933-1-001 - S0000 Left: Weston 11/25/2026 4933-1-001 / Implanted: Qty: 4 on 11/25/2016 by Dewayne Felix MD at [facility] Ankle 0000 / 0000 Sycamore External Fixation Long Carbon 40mml Threaded #4933-1-021 - S0000 Left: Weston 11/25/2026 4933-1-021 / Implanted: Qty: 2 on 11/25/2016 by Dewayne Felix MD at [facility] Ankle 0000 / 0000 Set Ring External Fixation Full 180mm Id Carbon Holex5 F/Foot & Ankle Fixation #4933-5-180 - S0000 Left: Tamanna 11/25/2026 4933-5-180 / Implanted: Qty: 3 on 11/25/2016 by Dewayne Felix MD at [facility] Ankle 0000 / 0000 Ring External Fixation 180mm #4934-4-180 - S0000 Left: Weston 2026 4934-4-180 / Implanted: Qty: 1 on 11/25/2016 by Dewayne Felix MD at [facility] Ankle 0000 / 0000 Nut External Fixation 6mm Kathryn Short #4933-1-010 - S0000 Left: Tamanna 4933-1-010 / Implanted: Qty: 25 on 11/25/2016 by Dewayne Felix MD at [facility] 0000 / 0000 Sycamore External Fixation 6mm Kathryn Carbon #4933-1-702 - S000 Left: Weston 11/25/2026 4933-1-702 / Implanted: Qty: 14 on 11/25/2016 by Dewayne Felix MD at [facility] Ankle 000 / 0000 Washer External Fixation 4mm Kathryn Yellow #4933-1-712 - S0000 Left: Tamanna 11/25/2026 4933-1-712 / Implanted: Qty: 1 on 11/25/2016 by Dewayne Felix MD at [facility] 0000 / 0000 Screw, Fixos Headless Compression [id number] Weston #[id number] - S0 Left: Weston 03/03/2027 [id number] / Implanted: Qty: 1 on 03/03/2017 by Dewayne Felix MD at [facility] 0 / 0 documented as of this encounter Procedures Procedure Name Priority Date/Time Associated Diagnosis Comments NON-STRESS Routine 11/15/2018 3:16 Supervision of high Results for this TEST PM CDT risk in procedure are in third trimester the results Placental abnormality, section. 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 1.005 - 1.025 mg/dl POCT PH U 7 5 - 8 mg/dl POCT U LEUK EST neg Negative - Negative POCT U NIT neg Negative - Negative POCT U PROT trace Negative - Negative POCT U GLU neg Negative - Negative POCT U KETONE neg Negative - Negative POCT U UROBILI . 0.2 - 1 mg/dl POCT U BILI . 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 Chronic hepatitis C without hepatic coma Obesity in Obesity complicating , childbirth, or the puerperium, unspecified as to episode of care or not applicable documented in this encounter Insurance Payer Benefit Plan / Subscriber ID Effective Dates Phone Address Type Group [facility] MEDICAID OF xxxxxxxxx 2018-Present [phone] [address] Medicaid [place] [id number] [place] [id number] documented as of this encounter Advance Directives Name Relationship Healthcare Agent Communication Relationship Geovanny Campbell Mother Primary healthcare agent [phone]
--- OUTSIDE RECORDS SUMMARY | 2019-07-09 07:19 | XMS REPORT | Summary of Care ---
:1985 Author Organization [facility] Address [address] [place] [address] Care Team Providers Name Role Phone Orthopedics, Tdc Unavailable Unavailable Rimma Duran Primary Care Provider Reason for Visit Reason Comments Care MFM Visit NON-STRESS TEST Encounter Details Date Type Department Care Team Description 11/15/2018 [facility] Modesto De La Rosa MD [address] [place] [address] Supervision of high risk in third trimester ( Primary Dx); Visit [facility] Placental abnormality, antepartum; [address] Glanzmann's thrombosthenin disorder; [place], [place] Chronic hepatitis C without hepatic coma; [address] Obesity in [phone] Allergies Active Allergy Reactions Severity Noted Date [...] Overview: Added automatically from request for surgery [id number] Cellulitis 12/30/2016 05/29/2018 Infection 12/29/2016 05/29/2018 Bleeding disorder 11/27/2016 05/29/2018 Pain 11/25/2016 05/29/2018 Bleeding 10/19/2016 05/29/2018 Pain, dental 10/11/2016 05/29/2018 Overview: Added automatically from request for surgery [id number] Infection of bone of left ankle 09/09/2016 [...] 11/15/2018 2:30 PM CDT SEKOU CAMPBELL #: [id number] Date of service: 11/15/2018 15:14 Routine Visit [...] IF SURGERY- consult Heme; 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[facility], requires multiple platelets and PRBC transfusions, frequent intermittent epistaxis, oral bleeding , menorrhagia, hematochezia, melena HCV (hepatitis C virus) Iron deficiency Transfusion history Social History Socioeconomic History Marital status: Single Spouse name: Not on file Number of children: Not on file Years of education: Not on file Highest education level: Not on file 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 Normalized ifehur-ien-wri data not available for patients older than [...] 50th%ile RTC 1 week. Plan of care, daniel sheikh, YAHIR precautions documented in this encounter Plan of Treatment Date Type Specialty Care Team Description 11/19/2018 Routine OB Satellites 1, ShanRmchjayesh Nst Visit Ultrasound 11/19/2018 Routine OB Satellites Faculty, Ad Samson Visit [facility] 11/22/2018 Routine OB Satellites 1, Jerel Nst Visit Ultrasound 11/22/2018 Routine OB Satellites Rimma Duran, Visit [facility] [address] [facility] [place], [place] [phone] 11/22/2018 Investment Officer Visit Maternal TeresaInga somers MD [id number] [place], [place] [id number] Medicine , [facility] Usg Room 11/26/2018 Routine OB Satellites 2, Jerel Nst Visit Ultrasound 11/26/2018 Routine OB Satellites Faculty, Ad Beachjayesh Visit [facility] 11/29/2018 Investment Officer Visit Maternal Medicine 11/29/2018 Routine OB Satellites 1, Jerel Nst Visit Ultrasound 11/29/2018 Routine OB Satellites Risk, Visit [facility] 12/06/2018 Investment Officer Visit Maternal Medicine 12/13/2018 Investment Officer Visit Maternal 2, [facility] Mfm Usg Room Medicine 12/20/2018 Investment Officer Visit Maternal Medicine 12/27/2018 Investment Officer Visit Maternal Medicine 12/31/2018 Hospital Encounter Obstetrics Teresa, Inga Chowdary MD [id number] [place], [place] [phone] 12/31/2018 Surgery Surgery Faculty, Ob SECTION [address] [place] [address] 01/03/2019 Investment Officer Visit Maternal 3, [facility] Mf Usg Room Medicine Health Maintenance Due Date Last Done Comments PNEUMOCOCCAL 0-64 YEARS COMBINED SERIES (1 1990 of 1 - PPSV23) INFLUENZA VACCINE 12/16/2018 06/05/2014 PAP SMEAR 05/29/2021 05/29/2018, 03/30/2004 DTaP,Tdap,and Td Vaccines (2 - Td) 10/15/2028 10/15/2018 documented as of this encounter Implants Implanted Type Area Supervisor [employer] Device Shelf Model / Identifier Expiration Date Serial / Lot Nail T2 Ankle Arthrodesis [id number] Left Carney F & A #[id number] - S0 NAIL Left: Carney 09/14/2021 [id number] / Implanted: Qty: 1 on 03/03/2017 by Dewayne Felix MD at [facility] Ankle 0 / [id number] Pin, Tamanna Self-Drilling Half [place] 5mm 150 X 25mm #5017-8-150s PIN Left: Carney 08/15/2019 5017-8-150S / Implanted: Qty: 1 on 11/25/2016 by Dewayne Felix MD at [facility] Ankle 0000 / [id number] Hexapod Strut PIN Left: [place]ney 11/25/2026 4935-0-040 / Implanted: Qty: 2 on 11/25/2016 by Dewayne Felix MD at [facility] Ankle 0000 / 000 Pin, [place] Self-Drilling Half [place] 5mm 150 X 25mm #5017-8-150s PIN Left: Carney 07/15/2021 5017-8-150S / Implanted: Qty: 1 on 11/25/2016 by Dewayne Felix MD at [facility] Ankle 0000 / [id number] Pin, Tamanna Self-Drilling [place] 5mm 150 X 25mm #5017-8-150s PIN Left: Tamanna 04/16/2021 5017-8-150S / Implanted: Qty: 1 on 11/25/2016 by Dewayne Felix MD at [facility] Ankle 0000 / [id number] Pin, [place] Self-Drilling Half [place] 5mm 150 X 25mm #5017-8-150s PIN Left: Tamanna 04/16/2021 5017-8-150S / Implanted: Qty: 1 on 11/25/2016 by Dewayne Felix MD at [facility] Ankle 0000 / [id number] Pin, [place] Self-Drilling [place] 5mm 150 X 25mm #5017-8-150s PIN Left: Tamanna 07/15/2021 5017-8-150S / Implanted: Qty: 1 on 11/25/2016 by Dewayne Felix MD at [facility] Ankle 0000 / [id number] Wire Mallory - Medium 1.5 To 2.0 Mm PIN Left: [place]ney 11/25/2026 4933-1- 002 / Implanted: Qty: 2 on 11/25/2016 by Dewayne Felix MD at [facility] Ankle 0000 / 0000 Wire [place]ory Adapter Short PIN Left: [place]ney 11/25/2026 4933-1-004 / Implanted: Qty: 2 on 11/25/2016 by Dewayne Felix MD at [facility] Ankle 0000 / 0000 [place] Pin Adaptor, Short 6mm # 4933-1-020 - S0000 PIN Left: Carney 2019 4933-1-020 / Implanted: Qty: 3 on 11/25/2016 by Dewayne Felix MD at [facility] Ankle 0000 / 0000 Hexapod Strut Medium PIN Left: Tamanna 4935-0-030 / Implanted: Qty: 6 on 11/25/2016 by Dewayne Felix MD at [facility] Ankle 0000 / 0000 Foot Arch RING Left: Tamanna 11/25/2026 4934-6-180 / Implanted: Qty: 1 on 11/25/2016 by Dewayne Felix MD at [facility] Ankle 0000 / 0000 Screw, Carney 5 X 30mm Fully Thrded Locking #1896-5030s - S0 SCREW Left: Tamanna 06/14/2021 1896-5030S / Implanted: Qty: 1 on 03/03/2017 by Dewayne Felix MD at [facility] Ankle 0 / [id number] Screw, Tamanna 5 X 50mm Fully Thrded Locking #1896-5050s - S0 SCREW Left: Tamanna 10/14/2020 1896-5050S / Implanted: Qty: 1 on 03/03/2017 by Dewayne Felix MD at [facility] Ankle 0 / [id number] Screw Headless Compression [id number] Tamanna #[id number] - S0 SCREW Left: Tamanna 03/03/2027 [id number] / Implanted: Qty: 1 on 03/03/2017 by Dewayne Felix MD at [facility] Ankle 0 / 0 K Wire [id number] WIRE Left: Tamanna 11/25/2026 5101-2-450 / Implanted: Qty: 2 on 11/25/2016 by Dewayne Felix MD at [facility] Ankle 0000 / 0000 Wire With [place] - Kathryn 2.0 X 450 Mm WIRE Left: Tamanna 11/25/2026 4933-8- 040 / Implanted: Qty: 2 on 11/25/2016 by Dewayne Felix MD at [facility] Ankle 0000 / 0000 Mallory External Fixation 1.5mm-2mm Kathryn Short Carbon #4933-1-001 - S0000 Left: Tamanna 11/25/2026 4933-1-001 / Implanted: Qty: 4 on 11/25/2016 by Dewayne Felix MD at [facility] Ankle 0000 / 0000 Mallory External Fixation Long Carbon 40mml Threaded #4933-1-021 - S0000 Left: Tamanna 11/25/2026 4933-1-021 / Implanted: Qty: 2 on 11/25/2016 by Dewayne Felix MD at [facility] Ankle 0000 / 0000 Set Ring External Fixation Full 180mm Id Carbon Holex5 F/Foot & Ankle Fixation #4933-5-180 - S0000 Left: Carney 11/25/2026 4933-5-180 / Implanted: Qty: 3 on 11/25/2016 by Dewayne Felix MD at [facility] Ankle 0000 / 0000 Ring External Fixation 180mm #4934-4-180 - S0000 Left: Tamanna 2026 4934-4-180 / Implanted: Qty: 1 on 11/25/2016 by Dewayne Felix MD at [facility] Ankle 0000 / 0000 Nut External Fixation 6mm Kathryn Short #4933-1-010 - S0000 Left: Carney 4933-1-010 / Implanted: Qty: 25 on 11/25/2016 by Dewayne Felix MD at [facility] Ankle 0000 / 0000 Mallory External Fixation 6mm Kathryn Carbon #4933-1-702 - S000 Left: Carney 11/25/2026 4933-1-702 / Implanted: Qty: 14 on 11/25/2016 by Dewayne Felix MD at [facility] Ankle 000 / 0000 Washer External Fixation 4mm Kathryn Yellow #4933-1-712 - S0000 Left: Carney 11/25/2026 4933-1-712 / Implanted: Qty: 1 on 11/25/2016 by Dewayne Felix MD at [facility] Ankle 0000 / 0000 Screw, Fixos Headless Compression [id number] Carney #[id number] - S0 Left: Carney 03/03/2027 [id number] / Implanted: Qty: 1 on 03/03/2017 by Dewayne Felix MD at [facility] Ankle 0 / 0 documented as of this [...] a 33 year old female Gestational age: [id number] Indications: Patient Active Problem List Diagnosis Glanzmann's [...] 2x week Modesto De La Rosa MD #[id number] 3:16 PM Performing Organization Address City/State/Zipcode Phone Number PACS POCT URINALYSIS W SPECIFIC [...] ID Effective Dates Phone Address Type Group [facility] MEDICAID OF xxxxxxxxx 2018-Present [phone] [address] [place] [id number] [place] [phone] (Home) [place] [address] documented as of this encounter Advance Directives Name Relationship Healthcare Agent Communication Relationship Geovanny Campbell Mother Primary healthcare agent [phone]
--- OUTSIDE RECORDS SUMMARY | 2019-07-09 07:19 | XMS REPORT | Summary of Care ---
:1985 Author Organization [address] [address] Care Team Providers Name Role Phone Orthopedics, Tdc Unavailable Unavailable Rimma Duran Primary Care Provider Ree Lizama MD Primary Care Provider Rimma Duran Primary Care Provider Reason for Visit Reason Comments Follow-up Encounter Details Date Type Department Care Team Description 11/01/2018 Case Management [facility] Vidhi Woodall MD Follow-up [address] [place] [address] [place] [address], [facility] [place] [address] Allergies Active Allergy Reactions Severity Noted Date Comments Aspirin Unknown - See comments 12/24/2009 Unable to take d/t clotting disorder. Penicillin Unknown - See comments 06/05/2016 documented as of this encounter (statuses as of 11/17/2018) Medications Medication Sig Dispensed Refills Start Date [...] as of this encounter (statuses as of 11/17/2018) Active Problems Problem Noted Date Obesity (BMI [...] as of this encounter (statuses as of 11/17/2018) Resolved Problems Problem Noted Date Resolved Date Anemia of mother in , antepartum 08/02/2018 10/09/2018 Nausea and vomiting during 06/26/2018 10/09/2018 Headache in 06/26/2018 10/09/2018 Susceptible to varicella (non-immune), currently 05/30/20182018 Overview: Address pp Surgery, elective 02/02/2017 05/29/2018 Ankle fracture, bimalleolar, closed, left, sequela 02/02/2017 10/09/2018 Overview: Added automatically from request for surgery [id number] Cellulitis 12/30/2016 05/29/2018 Infection 12/29/2016 05/29/2018 Bleeding disorder 11/27/2016 05/29/2018 Pain 11/25/2016 05/29/2018 Bleeding 10/19/2016 05/29/2018 Pain, dental 10/11/2016 05/29/2018 Overview: Added automatically from request for surgery [id number] Infection of bone of left ankle 09/09/2016 10/09/2018 Unspecified dental caries 08/08/2016 05/29/2018 Tooth pain 08/08/2016 05/29/2018 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 Dave) and blood bank ( Dr. Bishop) in order to prepare for her delivery. Recommendations are as follows : Antepartum- 1. Screen patient for platelet (HLA) antibodies. This was performed today. - If evidence of platelet antibodies, will send for titers. 2. Repeat CBC to evaluate patient's anemia. This completed today. Intrapartum- 1. Plan to consult hematology at time of admission. 2. Plan to type and cross patient on admission. 3. Plan for transfusion of 2 units platelets prior to delivery. - If patient has platelets antibodies with high titers, she may require plasmapheresis prior to delivery. 4. Plan to give Novoseven at time of delivery. Dose is 90mcg/kg. 5. Plan to give TXA after delivery. 6. Plan to assess need for uterotonics. This plan was discussed with the patient and she expressed understanding. Dr. Dave, Dr. Bishop, and I discussed bleeding concerns and the possibility for thrombocytopenia in the infant if platelet antibodies are detected. Will follow up the results of labs and determine if any additional testing needs to be completed. Vidhi Woodall MD PGY 6 MFM Fellow documented in this encounter Plan of Treatment Date Type Specialty Care Team Description 11/19/2018 Routine OB Satellites Alison Reis MD [address] [facility] [id number] [place] [phone] Visit 1, Estefanichp Nst Ultrasound 11/19/2018 Routine OB Satellites Alison Reis MD 301 [facility] [id number] [place] [phone] Visit Faculty, Ad Samson Mf 11/22/2018 Routine OB Satellites 1, ShanRmchp Nst Visit Ultrasound 11/22/2018 Routine OB Satellites Rimma Duran, Visit [facility] [address] [facility] [place], [place] [address] 11/22/2018 Design Quality Engineer Visit Maternal Inga Moore MD [address] [address] Medicine 5, [facility] Usg Room 11/26/2018 Routine OB Satellites 2, ShanRmchp Nst Visit Ultrasound 11/26/2018 Routine OB Satellites Faculty, Ad Samson Visit [facility] 11/29/2018 Design Quality Engineer Visit Maternal Medicine 11/29/2018 Routine OB Satellites 1, Ad-Rmchp Nst Visit Ultrasound 11/29/2018 Routine OB Satellites Risk, Visit [facility]-U[facility]/High 12/06/2018 Design Quality Engineer Visit Maternal Medicine 12/13/2018 Design Quality Engineer Visit Maternal 2, [facility] Usg Room Medicine 12/20/2018 Design Quality Engineer Visit Maternal Medicine 12/27/2018 Design Quality Engineer Visit Maternal Medicine 12/31/2018 Hospital Encounter Obstetrics Inga Moore MD [address] [address] 12/31/2018 Surgery Surgery Faculty, Ob SECTION [address] [place] [address] 01/03/2019 Design Quality Engineer Visit Maternal 3, [facility] Usg Room Medicine Health Maintenance Due Date Last Done Comments PNEUMOCOCCAL 0-64 YEARS COMBINED SERIES (1 1990 of 1 - PPSV23) INFLUENZA VACCINE 12/16/2018 06/05/2014 PAP SMEAR 05/29/2021 05/29/2018, 03/30/2004 DTaP,Tdap,and Td Vaccines (2 - Td) 10/15/2028 10/15/2018 documented as of this encounter Implants Implanted Type Area Deburr Technician Device Shelf Model / Identifier Expiration Date Serial / Lot Nail T2 Ankle Arthrodesis [id number] Left Tamanna F & A #[id number] - S0 NAIL Left: [place] 09/14/2021 [id number] / Implanted: Qty: 1 on 03/03/2017 by Dewayne Felix MD at [facility] Ankle 0 / [id number] Pin, [place] Self-Drilling Half [place] 5mm 150 X 25mm #5017-8-150s PIN Left: Tamanna 08/15/2019 5017-8-150S / Implanted: Qty: 1 on 11/25/2016 by Dewayne Felix MD at [facility] Ankle 0000 / [id number] Hexapod Strut PIN Left: Tamanna 11/25/2026 4935-0-040 / Implanted: Qty: 2 on 11/25/2016 by Deawyne Felix MD at [facility] Ankle 0000 / 000 Pin, Tamanna Self-Drilling Half [place] 5mm 150 X 25mm #5017-8-150s PIN Left: Tamanna 07/15/2021 5017-8-150S / Implanted: Qty: 1 on 11/25/2016 by Dewayne Felix MD at [facility] Ankle 0000 / [id number] Pin, [place] Self-Drilling [place] 5mm 150 X 25mm #5017-8-150s PIN Left: Tamanna 04/16/2021 5017-8-150S / Implanted: Qty: 1 on 11/25/2016 by Dewayne Felix MD at [facility] Ankle 0000 / [id number] Pin, Tamanna Self-Drilling [place] 5mm 150 X 25mm #5017-8-150s PIN Left: [place] 04/16/2021 5017-8-150S / Implanted: Qty: 1 on 11/25/2016 by Dewayne Felix MD at [facility] Ankle 0000 / [id number] Pin, [place] Self-Drilling [place] 5mm 150 X 25mm #5017-8-150s PIN Left: [place] 07/15/2021 5017-8-150S / Implanted: Qty: 1 on 11/25/2016 by Dewayne Felix MD at [facility] Ankle 0000 / [id number] Wire [place] - Medium 1.5 To 2.0 Mm PIN Left: [place] 11/25/2026 4933-1- 002 / Implanted: Qty: 2 on 11/25/2016 by Dewayne Felix MD at [facility] Ankle 0000 / 0000 Wire Fries Adapter Short PIN Left: Tamanna 11/25/2026 4933-1-004 / Implanted: Qty: 2 on 11/25/2016 by Dewayne Felix MD at [facility] Ankle 0000 / 0000 [place] Pin Adaptor, Short 6mm # 4933-1-020 - S0000 PIN Left: Tamanna 2019 4933-1-020 / Implanted: Qty: 3 on 11/25/2016 by Dewayne Felix MD at [facility] Ankle 0000 / 0000 Hexapod Strut Medium PIN Left: [place] 4935-0-030 / Implanted: Qty: 6 on 11/25/2016 by Dewayne Felix MD at [facility] Ankle 0000 / 0000 Foot Arch RING Left: Tamanna 11/25/2026 4934-6-180 / Implanted: Qty: 1 on 11/25/2016 by Dewayne Felix MD at [facility] Ankle 0000 / 0000 Screw, Tamanna 5 X 30mm Fully Thrded Locking #1896-5030s - S0 SCREW Left: Tamanna 06/14/2021 1896-5030S / Implanted: Qty: 1 on 03/03/2017 by Dewayne Felix MD at [facility] Ankle 0 / [id number] Screw, Tamanna 5 X 50mm Fully Thrded Locking #1896-5050s - S0 SCREW Left: Tamanna 10/14/2020 1896-5050S / Implanted: Qty: 1 on 03/03/2017 by Dewayne Felix MD at [facility] Ankle 0 / [id number] Screw Headless Compression [id number] Tamanna #[id number] - S0 SCREW Left: Tamanna 03/03/2027 [id number] / Implanted: Qty: 1 on 03/03/2017 by Dewayne Felix MD at [facility] Ankle 0 / 0 K Wire [id number] WIRE Left: [place] 11/25/2026 5101-2-450 / Implanted: Qty: 2 on 11/25/2016 by Dewayne Felix MD at [facility] Ankle 0000 / 0000 Wire With [place] - Kathryn 2.0 X 450 Mm WIRE Left: [place] 11/25/2026 4933-8- 040 / Implanted: Qty: 2 on 11/25/2016 by Dewayne Felix MD at [facility] Ankle 0000 / 0000 Fries External Fixation 1.5mm-2mm Kathryn Short Carbon #4933-1-001 - S0000 Left: [place] 11/25/2026 4933-1-001 / Implanted: Qty: 4 on 11/25/2016 by Dewayne Felix MD at [facility] Ankle 0000 / 0000 Fries External Fixation Long Carbon 40mml Threaded #4933-1-021 - S0000 Left: [place] 11/25/2026 4933-1-021 / Implanted: Qty: 2 on 11/25/2016 by Dewayne Felix MD at [facility] Ankle 0000 / 0000 Set Ring External Fixation Full 180mm Id Carbon Holex5 F/Foot & Ankle Fixation #4933-5-180 - S0000 Left: Tamanna 11/25/2026 4933-5-180 / Implanted: Qty: 3 on 11/25/2016 by Dewayne Felix MD at [facility] Ankle 0000 / 0000 Ring External Fixation 180mm #4934-4-180 - S0000 Left: Tamanna 2026 4934-4-180 / Implanted: Qty: 1 on 11/25/2016 by Dewayne Felix MD at [facility] Ankle 0000 / 0000 Nut External Fixation 6mm Kathryn Short #4933-1-010 - S0000 Left: Tamanna 4933-1-010 / Implanted: Qty: 25 on 11/25/2016 by Dewayne Felix MD at [facility] Ankle 0000 / 0000 Fries External Fixation 6mm Kathryn Carbon #4933-1-702 - S000 Left: Tamanna 11/25/2026 4933-1-702 / Implanted: Qty: 14 on 11/25/2016 by Dewayne Felix MD at [facility] Ankle 000 / 0000 Washer External Fixation 4mm Kathryn Yellow #4933-1-712 - S0000 Left: Tamanna 11/25/2026 4933-1-712 / Implanted: Qty: 1 on 11/25/2016 by Dewayne Felix MD at [facility] Ankle 0000 / 0000 Screw, Fixos Headless Compression [id number] Tamanna #261636 - S0 Left: Tamanna 03/03/2027 [id number] / Implanted: Qty: 1 on 03/03/2017 by Dewayne Felix MD at [facility] Ankle 0 / 0 documented as of this encounter Results Not on filedocumented in this encounter Insurance Payer Benefit Plan / Subscriber ID Effective Dates Phone Address Type Group [facility] MEDICAID OF xxxxxxxxx 2018-Present [phone] [address] Medicaid [place] [id number] [place] [phone] documented as of this encounter Advance Directives Name Relationship Healthcare Agent Communication Relationship Geovanny Boyd Mother Primary healthcare agent [email or web address]
--- OUTSIDE RECORDS SUMMARY | 2019-07-09 07:19 | XMS REPORT | Summary of Care ---
:1985 Author Organization [facility] Address [address] [place] [id number] Care Team Providers Name Role Phone Orthopedics, Tdc Unavailable Unavailable Rimma Duran Primary Care Provider Reason for Visit Reason Comments ULTRASOUND (Routine) Status Reason Specialty Diagnoses / Referred By Referred To Procedures Contact Contact Authorized OG-OBSTETRICS & Diagnoses Follow up hydrops Ferguson, Mila Mfm GYNECOLOGY / Procedures CONSULT MATERNAL MEDICINE ULTRASOUND ULTRASOUND 30 [address] Ultrasound-[facility] Maternal [address] [facility] Medicine [place], [place] Clinics [phone] Phone: Drive, 3rd Floor [phone] [place], [place] Fax: [phone] Encounter Details Date Type Department Care Team Description 11/14/2018 Delivery Of Shopping News Visit [facility] Alison Reis, Other placental Ultrasound- Jessica SANDRA disorders, third [address] [facility] [address] trimester [place], [place] [id number] [place], [place] [phone] Allergies Active Allergy Reactions Severity Noted Date Comments Aspirin Unknown - See comments 12/24/2009 Unable to take d/t clotting disorder. Penicillin Unknown - See comments 06/05/2016 documented as of this encounter (statuses as of 11/14/2018) Medications Medication Sig Dispensed Refills Start Date [...] as of this encounter (statuses as of 11/14/2018) Active Problems Problem Noted Date Obesity (BMI [...] as of this encounter (statuses as of 11/14/2018) Resolved Problems Problem Noted Date Resolved Date Anemia of mother in , antepartum 08/02/2018 10/09/2018 Nausea and vomiting during 06/26/2018 10/09/2018 Headache in 06/26/2018 10/09/2018 Susceptible to varicella (non-immune), currently 05/30/20182018 Overview: Address pp Surgery, elective 02/02/2017 05/29/2018 Ankle fracture, bimalleolar, closed, left, sequela 02/02/2017 10/09/2018 Overview: Added automatically from request for surgery [id number] Cellulitis 12/30/2016 05/29/2018 Infection 12/29/2016 05/29/2018 Bleeding disorder 11/27/2016 05/29/2018 Pain 11/25/2016 05/29/2018 Bleeding 10/19/2016 05/29/2018 Pain, dental 10/11/2016 05/29/2018 Overview: Added automatically from request for surgery [id number] Infection of bone of left ankle 09/09/2016 10/09/2018 Unspecified dental caries 08/08/2016 05/29/2018 Tooth pain 08/08/2016 05/29/2018 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 06/05/2016 11/03/2016 Anemia 05/21/2016 05/29/2018 documented as of this encounter (statuses as of 11/14/2018) Immunizations Name Administration Dates Next Due TDAP [...] Signs Not on filedocumented in this encounter Plan of Treatment Date Type Specialty Care Team Description 11/15/2018 Routine OB Satellites 2, [facility] Nst Visit Ultrasound 11/15/2018 Routine OB Satellites Faculty, [facility] 11/22/2018 Delivery Of Shopping News Visit Maternal Teresa, Inga Chowdary MD [address] [id number] [place], [place] [id number] Medicine 5, [facility] Usg Room 11/29/2018 Delivery Of Shopping News Visit Maternal Medicine 12/06/2018 Delivery Of Shopping News Visit Maternal Medicine 12/13/2018 Delivery Of Shopping News Visit Maternal 2, [facility] Us Room Medicine 12/20/2018 Delivery Of Shopping News Visit Maternal Medicine 12/27/2018 Delivery Of Shopping News Visit Maternal Medicine 01/03/2019 Delivery Of Shopping News Visit Maternal 3, [facility] Us Room Medicine Health Maintenance Due Date Last Done Comments PNEUMOCOCCAL 0-64 YEARS COMBINED SERIES (1 1990 of 1 - PPSV23) INFLUENZA VACCINE 12/16/2018 06/05/2014 PAP SMEAR 05/29/2021 05/29/2018, 03/30/2004 DTaP,Tdap,and Td Vaccines (2 - Td) 10/15/2028 10/15/2018 documented as of this encounter Implants Implanted Type Area Machine Plug Shaper Device Shelf Model / Identifier Expiration Date Serial / Lot Nail T2 Ankle Arthrodesis [id number] Left Tamanna F & A #[id number] - S0 NAIL Left: Tamanna 09/14/2021 [id number] / Implanted: Qty: 1 on 03/03/2017 by Dewayne Felix MD at [facility] Ankle 0 / [id number] Pin, Tamanna Self-Drilling Half [place] 5mm 150 X 25mm #[id number] PIN Left: Parnell 08/15/2019 [id number] / Implanted: Qty: 1 on 11/25/2016 by Dewayne Felix MD at [facility] Ankle 0000 / [id number] Hexapod Strut PIN Left: Parnell 11/25/2026 4935-0-040 / Implanted: Qty: 2 on 11/25/2016 by Dewayne Felix MD at [facility] Ankle 0000 / 000 Pin, Tamanna Self-Drilling Half [place] 5mm 150 X 25mm #5017-8-150s PIN Left: Tamanna 07/15/2021 5017-8-150S / Implanted: Qty: 1 on 11/25/2016 by Dewayne Felix MD at [facility] Ankle 0000 / [id number] Pin, Parnell Self-Drilling [place] 5mm 150 X 25mm #5017-8-150s PIN Left: Parnell 04/16/2021 5017-8-150S / Implanted: Qty: 1 on 11/25/2016 by Dewayne Felix MD at [facility] Ankle 0000 / [id number] Pin, [place] Self-Drilling Half [place] 5mm 150 X 25mm #5017-8-150s PIN Left: Parnell 04/16/2021 5017-8-150S / Implanted: Qty: 1 on 11/25/2016 by Dewayne Felix MD at [facility] Ankle 0000 / [id number] Pin, Tamanna Self-Drilling [place] 5mm 150 X 25mm #5017-8-150s PIN Left: Parnell 07/15/2021 5017-8-150S / Implanted: Qty: 1 on 11/25/2016 by Dewayne Felix MD at [facility] Ankle 0000 / [id number] Wire [place] - Medium 1.5 To 2.0 Mm PIN Left: Parnell 11/25/2026 4933-1- 002 / Implanted: Qty: 2 on 11/25/2016 by Dewayne Felix MD at [facility] Ankle 0000 / 0000 Wire [place] Adapter Short PIN Left: Tamanna 11/25/2026 4933-1-004 / Implanted: Qty: 2 on 11/25/2016 by Dewayne Felix MD at [facility] Ankle 0000 / 0000 [place] Pin Adaptor, Short 6mm # 4933-1-020 - S0000 PIN Left: Tamanna 2019 4933-1-020 / Implanted: Qty: 3 on 11/25/2016 by Dewayne Felix MD at [facility] Ankle 0000 / 0000 Hexapod Strut Medium PIN Left: Parnell 4935-0-030 / Implanted: Qty: 6 on 11/25/2016 by Dewayne Felix MD at [facility] Ankle 0000 / 0000 Foot Arch RING Left: Parnell 11/25/2026 4934-6-180 / Implanted: Qty: 1 on 11/25/2016 by Dewayne Felix MD at [facility] Ankle 0000 / 0000 Screw, Parnell 5 X 30mm Fully Thrded Locking #1896-5030s - S0 SCREW Left: Parnell 06/14/2021 1896-5030S / Implanted: Qty: 1 on 03/03/2017 by Dewayne Felix MD at [facility] Ankle 0 / [id number] Screw, Parnell 5 X 50mm Fully Thrded Locking #1896-5050s - S0 SCREW Left: Tamanna 10/14/2020 1896-5050S / Implanted: Qty: 1 on 03/03/2017 by Dewayne Felix MD at [facility] Ankle 0 / [id number] Screw Headless Compression [id number] Tamanna #[id number] - S0 SCREW Left: Parnell 03/03/2027 [id number] / Implanted: Qty: 1 on 03/03/2017 by Dewayne Felix MD at [facility] Ankle 0 / 0 K Wire [id number] WIRE Left: Tamanna 11/25/2026 5101-2-450 / Implanted: Qty: 2 on 11/25/2016 by Dewayne Felix MD at [facility] Ankle 0000 / 0000 Wire With [place] - Kathryn 2.0 X 450 Mm WIRE Left: Tamanna 11/25/2026 4933-8- 040 / Implanted: Qty: 2 on 11/25/2016 by Dewayne Felix MD at [facility] Ankle 0000 / 0000 [place] External Fixation 1.5mm-2mm Kathryn Short Carbon #4933-1-001 - S0000 Left: Parnell 11/25/2026 4933-1-001 / Implanted: Qty: 4 on 11/25/2016 by Dewayne Felix MD at [facility] Ankle 0000 / 0000 [place] External Fixation Long Carbon 40mml Threaded #4933-1-021 - S0000 Left: Parnell 11/25/2026 4933-1-021 / Implanted: Qty: 2 on 11/25/2016 by Dewayne Felix MD at [facility] Ankle 0000 / 0000 Set Ring External Fixation Full 180mm Id Carbon Holex5 F/Foot & Ankle Fixation #4933-5-180 - S0000 Left: Parnell 11/25/2026 4933-5-180 / Implanted: Qty: 3 on 11/25/2016 by Dewayne Felix MD at [facility] Ankle 0000 / 0000 Ring External Fixation 180mm #4934-4-180 - S0000 Left: Parnell 2026 4934-4-180 / Implanted: Qty: 1 on 11/25/2016 by Dewayne Felix MD at [facility] Ankle 0000 / 0000 Nut External Fixation 6mm Kathryn Short #4933-1-010 - S0000 Left: Parnell 4933-1-010 / Implanted: Qty: 25 on 11/25/2016 by Dewayne Felix MD at [facility] Ankle 0000 / 0000 [place] External Fixation 6mm Kathryn Carbon #4933-1-702 - S000 Left: Tamanna 11/25/2026 4933-1-702 / Implanted: Qty: 14 on 11/25/2016 by Dewayne Felix MD at [facility] Ankle 000 / 0000 Washer External Fixation 4mm Kathryn Yellow #4933-1-712 - S0000 Left: Tamanna 11/25/2026 4933-1-712 / Implanted: Qty: 1 on 11/25/2016 by Dewayne Felix MD at [facility] Ankle 0000 / 0000 Screw, Fixos Headless Compression [id number] Tamanna #[id number] - S0 Left: Tamanna 03/03/2027 [id number] / Implanted: Qty: 1 on 03/03/2017 by Dewayne Felix MD at [facility] Ankle 0 / 0 documented as of this encounter Results Not on filedocumented in this encounter Visit Diagnoses Diagnosis Other placental disorders, third trimester documented in this encounter Insurance Payer Benefit Plan / Subscriber ID Effective Dates Phone Address Type Group [employer] MEDICAID OF xxxxxxxxx 2018-Present [phone] [place] [address] [place] [address] documented as of this encounter Advance Directives Name Relationship Healthcare Agent Communication Relationship Geovanny Boyd Mother Primary healthcare agent [email or web address]
--- OUTSIDE RECORDS SUMMARY | 2019-07-09 07:19 | XMS REPORT | Summary of Care ---
:1985 Author Organization [facility] - [facility] Address [address] [place] [address] Care Team Providers Name Role Phone Orthopedics, Tdc Unavailable Unavailable Rimma Duran Primary Care Provider Reason for Visit Reason Comments MFM Visit Encounter Details Date Type Department Care Team Description [facility] [address] [facility] [id number] [place], [place] [address] Glanzmann's thrombosthenin disorder (Primary Dx); Visit [facility] Chronic hepatitis C without hepatic coma; [address] Obesity in ; [place], [place] History of section; [phone] 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; [phone] Supervision of high risk in third trimester Allergies Active Allergy Reactions Severity Noted Date Comments Aspirin Unknown - See comments 12/24/2009 Unable to take d/t clotting disorder. Penicillin Unknown - See comments 06/05/2016 documented as of this encounter (statuses as of 11/12/2018) Medications Medication Sig Dispensed Refills Start Date [...] as of this encounter (statuses as of 11/12/2018) Active Problems Problem Noted Date Obesity (BMI [...] as of this encounter (statuses as of 11/12/2018) Resolved Problems Problem Noted Date Resolved Date Anemia of mother in , antepartum 08/02/2018 10/09/2018 Nausea and vomiting during 06/26/2018 10/09/2018 Headache in 06/26/2018 10/09/2018 Susceptible to varicella (non-immune), currently 05/30/20182018 Overview: Address pp Surgery, elective 02/02/2017 05/29/2018 Ankle fracture, bimalleolar, closed, left, sequela 02/02/2017 10/09/2018 Overview: Added automatically from request for surgery [id number] Cellulitis 12/30/2016 05/29/2018 Infection 12/29/2016 05/29/2018 Bleeding disorder 11/27/2016 05/29/2018 Pain 11/25/2016 05/29/2018 Bleeding 10/19/2016 05/29/2018 Pain, dental 10/11/2016 05/29/2018 Overview: Added automatically from request for surgery [id number] Infection of bone of left ankle 09/09/2016 10/09/2018 Unspecified dental caries 08/08/2016 05/29/2018 Tooth pain 08/08/2016 05/29/2018 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 06/05/2016 11/03/2016 Anemia 05/21/2016 05/29/2018 documented as of this encounter (statuses as of 11/12/2018) Immunizations Name Administration Dates Next Due TDAP [...] Sign Reading Time Taken Comments Blood Pressure 102/64 11/12/2018 10:53 AM CDT Pulse 65 11/12/2018 10:53 AM CDT Temperature 37.4 C (99.3 F) 11/12/2018 10:53 AM CDT Respiratory Rate 16 11/12/2018 10:53 AM CDT Oxygen Saturation - - Inhaled Oxygen Concentration - - Weight 109.9 kg (242 lb 6 oz) 11/12/2018 10:53 AM CDT Height 167.6 cm (5' 6") 11/12/2018 10:53 AM CDT Body Mass Index 39.12 11/12/2018 10:53 AM CDT documented in this encounter Progress Notes Inga Moore MD - 11/12/2018 11:00 AM CDT SEKOU CAMPBELL #: [id number] Date of service: 11/10/2018 12:00 [facility] Return Visit CC: [facility] Visit HPI: Sekou Campbell is a 33 year old, , /White female. Patient 's last menstrual period was 04/01/2018 (exact date). She is 31w6d with an intrauterine . Her estimated date of delivery is 01/06/2019, by Last Menstrual Period. Denies bleeding, LOF, contractions. Feeling activefetal movement. She has no complaints today.. Medications: No outpatient medications have been marked as taking for the 11/12/18 encounter ( Appointment) with Faculty, Ad Real. Labs: I have reviewed the patient's labs. labs Maternal Blood type-Rh positive - HIV- negative Hepatitis B-negative Hep C positive Syphilis negative Recent Labs 10/15/18 0937 [facility] Non-reactive GC/CT -Negative Aneuploidy screen-Negative Glucose screen-Negative Second/third trimester labs Glucose screen-negative 10/15/18 Syphilis-negative Recent Labs 10/15/18 0937 [facility] Non-reactive HIV-negative Radiology: I have reviewed the patient's Radiology report(s). ROS: Review of Systems Constitutional: Negative for chills and fever. Respiratory: Negative for apnea, cough and shortness of breath. Cardiovascular: Negative for chest pain and palpitations. Gastrointestinal: Negative for abdominal pain, nausea and vomiting. Genitourinary: Negative. Negative for dysuria and vaginal bleeding. No LOF Musculoskeletal: Negative. Skin: Negative. Negative for rash. Neurological: Negative for dizziness and headaches. Psychiatric/Behavioral: Negative for suicidal ideas. The patient is not nervous/ anxious. OBJECTIVE: LMP 04/01/2018 (Exact Date) 38.1 Physical Exam: Physical Exam Vitals reviewed. Constitutional: She is oriented to person, place, and time. She appears well- developed and well-nourished. Her body habitus is obese. HENT: Head: Normocephalic and atraumatic. Pulmonary/Chest: Normal inspiratory effort. No respiratory distress. She exhibits no tenderness. Abdominal: Abdomen is soft. Normal appearance. Musculoskeletal: Normal range of motion. Neuro/Psychiatric: She has a normal mood and affect. Her speech is normal and behavior is normal. Judgment and thought content normal. Cognition and memory are normal. She is alert and oriented to person, place, and time. Gait normal. Skin: Skin normal. Skin is warm, dry and intact. 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 Glanzmann's thrombastheniadisorder Patient reports she was diagnosed as a child at the age of 32 years old after her mother had given her aspirin and suffered from bleeding and admitted for further care and work-up. She has had issues with bleeding with bleeding from gums, epistaxis, hematochezia, melena, easy bruising, menorrhagia. Sherequires on average transfusion of PRBC up to 3-4 times a year. Denies taking ASA or NSAIDs. Menarche started at age 12 and requires multiple pads usually 10+ a day. She has tried IUD, OCP, and depo provera injections and did not get any benefit with continued heavy bleeding. Also had other surgeries including hernia repair, wisdom teeth removal, ankle surgery. She reports bleeding after these surgeries requiring multiple transfusions. Was seen by hematology. She reports history of allergy to IV iron, but heme note reports she can have IV iron dextran. Currently denies any VB. Previously, She was counseled that GT is an AR hemorrhagic disease. It is caused by a deficiency or dysfunction of glycoprotein IIbIIIa receptors on platelets, which are required for platelet aggregation.The disease can be classified as follows: type 1 (individuals have less than 5% of normal GP IIb IIIa levels), type 2 (10-20% of normal GP IIbIIIa levels) and type 3 (levels of GP IIbIIIa are normal but there is functional inactivity). The first line of management for severe haemorrhageis platelet transfusion. Approximately 15 30% of individuals become refractory to transfusion and a significant proportion develop antibodies against GP IIbIIIa or HLA. Other interventions includeRecombinant factor VIIa in patients who are refractory to platelet transfusions or have antibodies. in individuals with GT is associated with increased risk of antepartum , peripartum and haemorrhage, up 20 days . Prior cases reported the use large doses of uterotonics, plasmapheresis followed by platelet transfusions and recombinant factor VIIa, and TXA. The main fetalrisk arises from the presence of maternal HPA antibodies to platelet glycoproteins, classically IIbIIIa especially after multiple platelet transfusions. Maternal antibodies can cross the placenta, causing thrombocytopenia, with a risk of subsequent intracranial haemorrhage. Was seen by hematology on 09/06/2018 at [facility]. Received IV iron transfusionfor iron def anemia. Started on regimen of B12 supplementation for low B12. Sees them again 11/15 and 11/20. Pt states had Genetic counseling previously,and declines to have again. 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 S/P Hematology visit. Seen by Dr Dave and Dr Bishop from hematology/blood bank . Some more labs sent which were sent out; no results yet 2. Twoprior CD Under GETA, complicated by intra-op bleeding requiring transfusions. Saw anesthesia at [facility] on 09/19. For RCD. 3.Multiparity Pt declines BTL 4. Chronic hepatitis C without hepatic coma. Nl LFT. Viral load5.4 million IU/ml. States acquired via blood transfusion. Counseled previously on risk of transmission to fetuspreviously. 5. Placental mass 09/19: "Large preplacental mass 11.7 x 8.6 x 12.7cm on 11/01. Heterogenous in appearance with venous "swirling" noted suggest that this is area of preplacental bleeding/hemorrhage. The cord insertion appears to be at least 2 or 3 cm from it currently. I did counseling her that this could put baby at increase risk for adverse outcome but hard to determine. Would recommend US every 3 to 4 weeks and NSTs at 28 to 30 weeks". Differential diagnosis include chorioangioma. No evidence of hydrops noted.Recommend movement count monitoring, weekly ultrasound to rule out development of hydrops, andfollow up growth interval." FOLLOW-UP growth on 10/22 shows fetus measuring at the 52nd%ile. NST reactive today. Continue 2x weekly Weekly US to monitor large preplacental hematoma 6. RNI, VZVI, A positive,HIV neg, syphilis neg, early 1 hr neg. Allergies: ASA and PCN. ASCUS pap. MEDS: iron, PNV, B12, Vit C, 7. Anemia with Hb 10; on iron bid. MFM 1 week documented in this encounter Plan of Treatment Date Type Specialty Care Team Description 11/14/2018 [facility] [place] Visit Maternal Medicine 11/15/2018 Routine OB Satellites 2, Jerel Nst Visit Ultrasound 11/15/2018 Routine OB Satellites Risk, Visit Irw-Isqvm-Ms/High 11/22/2018 [facility] [place] [place] Visit Maternal Inga Moore MD [id number] [place], [place] [id number] Medicine 5, [facility] Usg Room 11/29/2018 [facility] [place] [place] Visit Maternal Medicine 12/06/2018 [facility] [place] [place] Visit Maternal Medicine 12/13/2018 [facility] [place] [employer] [place] Visit Maternal 2, [facility] Usg Room Medicine 12/20/2018 [facility] [place] [place] Visit Maternal Medicine 12/27/2018 [facility] [place] [place] Visit Maternal Medicine 01/03/2019 [facility] [place] [employer] [place] Visit Maternal 3, [facility] Usg Room Medicine Health Maintenance Due Date Last Done Comments PNEUMOCOCCAL 0-64 YEARS COMBINED SERIES (1 1990 of 1 - PPSV23) INFLUENZA VACCINE 12/16/2018 PAP SMEAR 05/29/2021 05/29/2018, 03/30/2004 DTaP,Tdap,and Td Vaccines (2 - Td) 10/15/2028 10/15/2018 documented as of this encounter Implants Implanted Type Area Mailroom Courier Device Shelf Model / Identifier Expiration Date Serial / Lot Nail T2 Ankle Arthrodesis [id number] Left Tamanna F & A #[id number] - S0 NAIL Left: Tamanna 09/14/2021 [id number] / Implanted: Qty: 1 on 03/03/2017 by Dewayne Felix MD at [facility] Ankle 0 / [id number] Pin, Tamanna Self-Drilling Half [place] 5mm 150 X 25mm #[id number] PIN Left: Tamanna 08/15/2019 [id number] / Implanted: Qty: 1 on 11/25/2016 by Dewayne Felix MD at [facility] Ankle 0000 / [id number] Hexapod Strut PIN Left: Tamanna 11/25/2026 4935-0-040 / Implanted: Qty: 2 on 11/25/2016 by Dewayne Felix MD at [facility] Ankle 0000 / 000 Pin, Tamanna Self-Drilling Half [place] 5mm 150 X 25mm #[id number] PIN Left: Tamanna 07/15/2021 [id number] / Implanted: Qty: 1 on 11/25/2016 by Dewayne Felix MD at [facility] Ankle 0000 / [id number] Pin, Tamanna Self-Drilling [place] 5mm 150 X 25mm #[id number] PIN Left: Tamanna 04/16/2021 [id number] / Implanted: Qty: 1 on 11/25/2016 by Dewayne Felix MD at [facility] Ankle 0000 / [id number] Pin, Tamanna Self-Drilling [place] 5mm 150 X 25mm #[id number] PIN Left: [place] 04/16/2021 [id number] / Implanted: Qty: 1 on 11/25/2016 by Dewayne Felix MD at [facility] Ankle 0000 / [id number] Pin, [place] Self-Drilling Half [place] 5mm 150 X 25mm #[id number] PIN Left: [place] 07/15/2021 [id number] / Implanted: Qty: 1 on 11/25/2016 by Dewayne Felix MD at [facility] Ankle 0000 / [id number] Wire [place] - Medium 1.5 To 2.0 Mm PIN Left: Tamanna 11/25/2026 4933-1- 002 / Implanted: Qty: 2 on 11/25/2016 by Dewayne Felix MD at [facility] Ankle 0000 / 0000 Wire [place] Adapter Short PIN Left: [place] 11/25/2026 4933-1-004 / Implanted: Qty: 2 on 11/25/2016 by Dewayne Felix MD at [facility] Ankle 0000 / 0000 [place] Pin Adaptor, Short 6mm # 4933-1-020 - S0000 PIN Left: Tamanna 2019 4933-1-020 / Implanted: Qty: 3 on 11/25/2016 by Dewayne Felix MD at [facility] Ankle 0000 / 0000 Hexapod Strut Medium PIN Left: Tamanna 4935-0-030 / Implanted: Qty: 6 on 11/25/2016 by Dewayne Felix MD at [facility] Ankle 0000 / 0000 Foot Arch RING Left: [place] 11/25/2026 4934-6-180 / Implanted: Qty: 1 on 11/25/2016 by Dewayne Felix MD at [facility] Ankle 0000 / 0000 Screw, [place] 5 X 30mm Fully Thrded Locking #[id number] - S0 SCREW Left: Tamanna 06/14/2021 [id number] / Implanted: Qty: 1 on 03/03/2017 by Dewayne Felix MD at [facility] Ankle 0 / [id number] Screw, [place] 5 X 50mm Fully Thrded Locking #1896-5050s - S0 SCREW Left: Tamanna 10/14/2020 [id number] / Implanted: Qty: 1 on 03/03/2017 by Dewayne Felix MD at [facility] Ankle 0 / [id number] Screw Headless Compression [id number] Tamanna #[id number] - S0 SCREW Left: Tamanna 03/03/2027 [id number] / Implanted: Qty: 1 on 03/03/2017 by Dewayne Felix MD at [facility] Ankle 0 / 0 K Wire [id number] WIRE Left: [place] 11/25/2026 [id number] / Implanted: Qty: 2 on 11/25/2016 by Dewayne Felix MD at [facility] Ankle 0000 / 0000 Wire With [place] - Kathryn 2.0 X 450 Mm WIRE Left: [place] 11/25/2026 4933-8- 040 / Implanted: Qty: 2 on 11/25/2016 by Dewayne Felix MD at [facility] Ankle 0000 / 0000 [place] External Fixation 1.5mm-2mm Kathryn Short Carbon #4933-1-001 - S0000 Left: Tamanna 11/25/2026 4933-1-001 / Implanted: Qty: 4 on 11/25/2016 by Dewayne Felix MD at [facility] Ankle 0000 / 0000 [place] External Fixation Long Carbon 40mml Threaded #4933-1-021 - S0000 Left: Tamanna 11/25/2026 4933-1-021 / Implanted: Qty: 2 on 11/25/2016 by Dewayne Felix MD at [facility] Ankle 0000 / 0000 Set Ring External Fixation Full 180mm Id [place] Holex5 F/Foot & Ankle Fixation #4933-5-180 - S0000 Left: Tamanna 11/25/2026 4933-5-180 / Implanted: Qty: 3 on 11/25/2016 by Dewayne Felix MD at [facility] Ankle 0000 / 0000 Ring External Fixation 180mm #4934-4-180 - S0000 Left: Tamanna 2026 4934-4-180 / Implanted: Qty: 1 on 11/25/2016 by Dewayne Felix MD at [facility] Ankle 0000 / 0000 Nut External Fixation 6mm Kathryn Short #4933-1-010 - S0000 Left: Tamanna 4933-1-010 / Implanted: Qty: 25 on 11/25/2016 by Dewayne Felix MD at [facility] Ankle 0000 / 0000 [place] External Fixation 6mm Kathryn Carbon #4933-1-702 - S000 Left: Tamanna 11/25/2026 4933-1-702 / Implanted: Qty: 14 on 11/25/2016 by Dewayne Felix MD at [facility] Ankle 000 / 0000 [place] External Fixation 4mm Kathryn Yellow #[id number] - S0000 Left: Tamanna 11/25/2026 4933-1-712 / Implanted: Qty: 1 on 11/25/2016 by Dewayne Felix MD at [facility] Ankle 0000 / 0000 Screw, Fixos Headless Compression [id number] Tamanna #[id number] - S0 Left: Tamanna 03/03/2027 [id number] / Implanted: Qty: 1 on 03/03/2017 by Dewayne Felix MD at [facility] Ankle 0 / 0 documented as of this encounter Procedures Procedure Name Priority Date/Time Associated Diagnosis Comments NON-STRESS Routine 11/12/2018 12:13 Placental Results for this TEST PM CDT abnormality in third procedure are in trimester the results section. POCT URINALYSIS Routine 11/12/2018 10:55 Supervision of high Results for this AM CDT risk in procedure are in third trimester the results section. documented in this encounter Results NON-STRESS TEST (11/12/2018 12:13 PM CDT) Specimen Narrative Performed At Reactive and reassuring PACS Performing Organization Address City/State/Zipcode Phone Number PACS POCT URINALYSIS W SPECIFIC GRAVITY (11/12/2018 10:55 AM CDT) POCT U SP GRAV . 1.005 - 1.025 mg/dl POCT PH U 7 5 - 8 mg/dl POCT U LEUK EST Neg Negative - Negative POCT U NIT Neg Negative - Negative POCT U PROT Trace Negative - Negative POCT U GLU Neg Negative - Negative POCT U KETONE None Negative - Negative POCT U UROBILI . 0.2 - 1 mg/dl POCT U BILI . Negative - Negative POCT U BLD Neg Negative - Negative POCT U COLOR POCT U APPEAR Specimen Urine - URINE, CLEAN CATCH documented in this encounter Visit Diagnoses Diagnosis Glanzmann's thrombosthenin disorder - Primary Qualitative platelet defects Chronic hepatitis C without hepatic coma Obesity in Obesity complicating , childbirth, or the puerperium, unspecified as to episode of care or not applicable History of section Other postprocedural status 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 Supervision of high risk in third trimester Unspecified high-risk documented in this encounter Insurance Payer Benefit Plan / Subscriber ID Effective Dates Phone Address Type Group [employer] MEDICAID OF xxxxxxxxx 2018-Present [phone] [address] Medicaid [place] [id number] [place] [id number] documented as of this encounter Advance Directives Name Relationship Healthcare Agent Communication Relationship Geovanny Campbell Mother Primary healthcare agent [phone]
--- OUTSIDE RECORDS SUMMARY | 2019-07-09 07:20 | XMS REPORT | Summary of Care ---
:1985 Author Organization [facility] Address [address] [place] [id number] Care Team Providers Name Role Phone Orthopedics, Tdc Unavailable Unavailable Rimma Duran Primary Care Provider Reason for Visit Reason Comments MFM Visit NON-STRESS TEST Encounter Details Date Type Department Care Team Description 11/19/2018 [facility] Re[facility] [id number] [place] [address] Glanzmann's thrombosthenin disorder (Primary Dx); Visit [facility], [facility] Supervision of high risk in third trimester; [address] 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; [place], [place] Chronic hepatitis C without hepatic coma; [address] Obesity in ; [phone] History of section; Need for immunization against rubella; 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 06/05/2018 Overview: Schedule patient for colpo 6 weeks pp Multiparity 05/29/2018 History of section 05/29/2018 Overview: X2 Supervision of high-risk 05/29/2018 Glanzmann's thrombosthenin disorder 08/08/2016 Chronic hepatitis C without hepatic coma 08/08/2016 Estimated Date of Delivery Comments Yes 01/06/2019 Based on last menstrual period of 04/01/2018 (Exact Date) documented as of this encounter (statuses as of 11/19/2018) Resolved Problems Problem Noted Date Resolved Date Anemia of mother in , antepartum 08/02/2018 10/09/2018 Nausea and vomiting during 06/26/2018 10/09/2018 Headache in 06/26/2018 10/09/2018 Susceptible to varicella (non-immune), currently 05/30/20182018 Overview: Address pp Surgery, elective 02/02/2017 05/29/2018 Ankle fracture, bimalleolar, closed, left, sequela 02/02/2017 10/09/2018 Overview: Added automatically from request for surgery [id number] Cellulitis 12/30/2016 05/29/2018 Infection 12/29/2016 05/29/2018 Bleeding disorder 11/27/2016 05/29/2018 Pain 11/25/2016 05/29/2018 Bleeding 10/19/2016 05/29/2018 Pain, dental 10/11/2016 05/29/2018 Overview: Added automatically from request for surgery [id number] Infection of bone of left ankle 09/09/2016 10/09/2018 Obesity in 09/08/2016 11/19/2018 Unspecified dental caries 08/08/2016 05/29/2018 Tooth pain 08/08/2016 05/29/2018 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 06/05/2016 11/03/2016 Anemia 05/21/2016 05/29/2018 documented as of this encounter (statuses as of 11/19/2018) Immunizations Name Administration Dates Next Due TDAP [...] Sign Reading Time Taken Comments Blood Pressure 118/64 11/19/2018 9:28 AM CDT Pulse 62 11/19/2018 9:28 AM CDT Temperature 36.9 C (98.4 F) 11/19/2018 9:28 AM CDT Respiratory Rate 16 11/19/2018 9:28 AM CDT Oxygen Saturation - - Inhaled Oxygen Concentration - - Weight 109.9 kg (242 lb 6 oz) 11/19/2018 9:28 AM CDT Height 167.6 cm (5' 6") 11/19/2018 9:28 AM CDT Body Mass Index 39.12 11/19/2018 9:28 AM CDT documented in this encounter Patient Instructions Patient InstructionsAlison Reis MD - 11/19/2018 9:30 AM CDTGo to LD for prolonged monitoring documented in this encounter Progress Notes Alison Reis MD - 11/19/2018 9:30 AM CDT Chief complaint: Chief Complaint Patient presents with MFM Visit NON-STRESS TEST HPI Histories OB History Para Term AB Living 4 [...] 13.1 oz (4 kg) F VAGINAL NOEMY Past Medical History: Diagnosis Date Anemia treated with IV iron 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 06/05/2018 B12 deficiency Clotting disorder 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 IF SURGERY- consult Heme; 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[facility], requires multiple platelets and PRBC transfusions, frequent intermittent epistaxis, oral bleeding , menorrhagia, hematochezia, melena HCV (hepatitis C virus) Iron deficiency Transfusion history Family History Problem Relation Age of Onset Diabetes Father Cancer Mother Ovarian Cancer Family Status Relation Name Status Fa Alive Mo Alive Past Surgical History: Procedure Laterality Date ALVEOPLOPLASTY IN CONJUNCTION W/EXTRACT 10/19/2016 ANKLE ARTHROSCOPY Left 03/03/2017 Surgeon: Dewayne Felix MD; [facility] ANKLE HARDWARE REMOVAL ANKLE ORIF SECTION x2 CHOLECYSTECTOMY EXTERNAL FIXATOR PLACEMENT FOR LOWER EXTREMITY (SHX) Left 11/25/2016 Surgeon: Dewayne Felix MD; [facility] EXTERNAL FIXATOR REMOVAL OF LOWER EXTREMITY (SHX) Left 02/17/2017 Surgeon: Dewayne Felix MD; [facility]: [facility] LAP,INGUINAL HERNIA REPR,INITIAL Right OSTEOTOMY Left 11/25/2016 Surgeon: Dewayne Felix MD; [facility] SPLINT APPLICATION Left 02/17/2017 Surgeon: Dewayne Felix MD; [facility] SURGICAL EXTRACTION - ERUPTED TEETH 10/19/2016 TIBIOCALCANEAL ARTHRODESIS Left 03/03/2017 Surgeon: Dewayne Felix MD; [facility] TOOTH EXTRACTION TOOTH EXTRACTION N/A 10/19/2016 Surgeon: Jus Tinoco; [facility]: [facility] Social History Socioeconomic History Marital status: Single Spouse name: Not on file Number of children: Not on file Years of education: Not on file Highest education level: Not on file Occupational History 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 Allergies Bri is allergic to asa [aspirin] and penicillin. Medications Bri has a current medication list which includes the following prescription(s) : ferrous sulfate, vitamin b-12, vitamin c, and pnv 67-iron ps-folate no.1-dha. Review of Systems All other systems reviewed and are negative. BP 118/64 (BP Location: Right arm, Patient Position: Sitting, BP CUFF SIZE: Adult Small) | Pulse 62 | Temp 36.9 C (98.4 F) (Oral) | Resp 16 | Ht 5' 6 " (1.676 m) | Wt 242 lb 6 oz (109.9 kg) | LMP 04/01/2018 (Exact Date) | BMI 39.12 kg/m Pregravid BMI: 38.1 Physical Exam PHYSICAL: General Exam: HEENT: Normal Thyroid: Normal Lymph Node: Normal Neurological: Normal Heart: Normal Lungs: Normal Breasts: Normal Abdomen: Normal Skin: Normal Extremities: Normal Assessment/Plan Return to clinic in 1 weeks. This visit did not involve counseling and coordination that comprised more than 50% of the visit time. 33 yo at 33+1 weeks by LMP and 14 week sono 1. Glanzmann's thrombastheniadisorder Patient reports she was [...] have IV iron dextran. Currently denies any VB, but reports epistaxisand easy brushing. Pt states had Genetic counseling previously,and declines to have again. 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 Was seen by hematology on 09/06/2018 at [facility]. Received IV iron transfusionfor iron def anemia. Started on regimen of B12 supplementation for low B12. Sees them again 11/15 and 11/20. Has been seen by anesthesia on 09/19. Is being reviewed weekly in MFM conference. Getting twice weeklyNSTs and sono every week for placental mass (hydrops eval). Dr. Bishop ([facility] blood bank) is following.Has 44 platelet abs. Dario is trying to find platelets vs plasmapharesis prior to delivery. Waiting to here their recommendation. RCD scheduled for 12/31: 2U platelets, novoseven, TXA, uterotonics, GETA. 2. Twoprior CD Under GETA, complicated by intra-op bleeding requiring transfusions. Saw anesthesia at [facility] on 09/19. For RCD. 3.Multiparity Pt declines BTL. 4. Chronic hepatitis C without hepatic coma. Nl LFT. Viral load5.4 million IU/ml. States acquired via blood transfusion. Counseled on risk of transmission to fetuspreviously. 5. Placental mass Twice weekly NSTs and weekly hydrops checks. Last growth 11/14 was wnl. Mass stable at 11-12cm. 6. RNI, VZVI, A positive,HIV neg, syphilis neg, early 1 hr neg. Allergies: ASA and PCN. ASCUS pap. MEDS: iron, PNV, B12, Vit C, bactrim 4 days left for boil. 7. Anemia S/p Tx with IV iron at [facility] 09/24 and . Last Hb was 10 on 11/01. RTC 1 week. NT nonreactive with spontaneous decels. Advised to go to LD for evaluation and prolongedmonitoring. documented in this encounter Plan of Treatment Date Type Specialty Care Team Description 11/22/2018 Routine OB Satellites 1, Jerel Nst Visit Ultrasound 11/22/2018 Routine OB Satellites Rimma Duran, Visit [employer] ELECTRICAL ENGINEER [address] [facility] [place] [address] [phone] 11/22/2018 Product Mgmt Dev Manager Visit Maternal Inga Moore MD [id number] [place] [address] Medicine 5, [facility] 11/26/2018 Routine OB Satellites 2, Jerel Nst Visit Ultrasound 11/26/2018 Routine OB Satellites FacultyAd Visit [facility] 11/29/2018 Product Mgmt Dev Manager Visit Maternal Medicine 11/29/2018 Routine OB Satellites 1, Jerel Nst Visit Ultrasound 11/29/2018 Routine OB Satellites Risk, Visit [facility] 12/06/2018 Product Mgmt Dev Manager Visit Maternal Medicine 12/13/2018 Product Mgmt Dev Manager Visit Maternal 2, [facility] Medicine 12/20/2018 Product Mgmt Dev Manager Visit Maternal Medicine 12/27/2018 Product Mgmt Dev Manager Visit Maternal Medicine 12/31/2018 Hospital Encounter Obstetrics Inga Moore MD [id number] [place] [address] [phone] 12/31/2018 Surgery Surgery Faculty, Ob SECTION [address] [place] [address] 01/03/2019 Product Mgmt Dev Manager Visit Maternal 3, [facility] Medicine Health Maintenance Due Date Last Done Comments PNEUMOCOCCAL 0-64 YEARS COMBINED SERIES (1 1990 of 1 - PPSV23) INFLUENZA VACCINE 12/16/2018 06/05/2014 PAP SMEAR 05/29/2021 05/29/2018, 03/30/2004 DTaP,Tdap,and Td Vaccines (2 - Td) 10/15/2028 10/15/2018 documented as of this encounter Implants Implanted Type Area Lead Presser Device Shelf Model / Identifier Expiration Date Serial / Lot Nail T2 Ankle Arthrodesis [id number] Left Tamanna F & A #[id number] - S0 NAIL Left: Tamanna 09/14/2021 [id number] / Implanted: Qty: 1 on 03/03/2017 by Dewayne Felix MD at [facility] Ankle 0 / [id number] Pin, [place]oy Self-Drilling Half Mchenry 5mm 150 X 25mm #[id number] PIN Left: [place]oy 08/15/2019 [id number] / Implanted: Qty: 1 on 11/25/2016 by Dewayne Felix MD at [facility] Ankle 0000 / [id number] Hexapod Strut PIN Left: [place]oy 11/25/2026 4935-0-040 / Implanted: Qty: 2 on 11/25/2016 by Dewayne Felix MD at [facility] Ankle 0000 / 000 Pin, Tamanna Self-Drilling Half Mchenry 5mm 150 X 25mm #[id number] PIN Left: [place]omeroy 07/15/2021 [id number] / Implanted: Qty: 1 on 11/25/2016 by Dewayne Felix MD at [facility] Ankle 0000 / [id number] Pin, [place]oy Self-Drilling Half Mchenry 5mm 150 X 25mm #[id number] PIN Left: Pomeroy 04/16/2021 [id number] / Implanted: Qty: 1 on 11/25/2016 by Dewayne Felix MD at [facility] Ankle 0000 / [id number] Pin, Tamanna Self-Drilling Half Mchenry 5mm 150 X 25mm #[id number] PIN Left: Pomeroy 04/16/2021 [id number] / Implanted: Qty: 1 on 11/25/2016 by Dewayne Felix MD at [facility] Ankle 0000 / [id number] Pin, [place]omeroy Self-Drilling Half Mchenry 5mm 150 X 25mm #[id number] PIN Left: Pomeroy 07/15/2021 [id number] / Implanted: Qty: 1 on 11/25/2016 by Dewayne Felix MD at [facility] Ankle 0000 / [id number] Wire Chandler - Medium 1.5 To 2.0 Mm PIN Left: Tamanna 11/25/2026 4933-1- 002 / Implanted: Qty: 2 on 11/25/2016 by Dewayne Felix MD at [facility] Ankle 0000 / 0000 Wire Chandler Adapter Short PIN Left: Tamanna 11/25/2026 4933-1-004 / Implanted: Qty: 2 on 11/25/2016 by Dewayne Felix MD at [facility] Ankle 0000 / 0000 Mchenry Pin Adaptor, Short 6mm # 4933-1-020 - S0000 PIN Left: Pomeroy 2019 4933-1-020 / Implanted: Qty: 3 on 11/25/2016 by Dewayne Felix MD at [facility] Ankle 0000 / 0000 Hexapod Strut Medium PIN Left: Pomeroy 4935-0-030 / Implanted: Qty: 6 on 11/25/2016 by Dewayne Felix MD at [facility] Ankle 0000 / 0000 Foot Arch RING Left: Tamanna 11/25/2026 4934-6-180 / Implanted: Qty: 1 on 11/25/2016 by Dewayne Felix MD at [facility] Ankle 0000 / 0000 Screw, Pomeroy 5 X 30mm Fully Thrded Locking #1896-5030s - S0 SCREW Left: Tamanna 06/14/2021 [id number] / Implanted: Qty: 1 on 03/03/2017 by Dewayne Felix MD at [facility] Ankle 0 / [id number] Screw, Pomeroy 5 X 50mm Fully Thrded Locking #1896-5050s - S0 SCREW Left: Pomeroy 10/14/2020 [id number] / Implanted: Qty: 1 on 03/03/2017 by Dewayne Felix MD at [facility] Ankle 0 / [id number] Screw Headless Compression [id number] Pomeroy #[id number] - S0 SCREW Left: Pomeroy 03/03/2027 [id number] / Implanted: Qty: 1 on 03/03/2017 by Dewayne Felix MD at [facility] Ankle 0 / 0 K Wire [id number] WIRE Left: Tamanna 11/25/2026 5101-2-450 / Implanted: Qty: 2 on 11/25/2016 by Dewayne Felix MD at [facility] Ankle 0000 / 0000 Wire With Malinta - Kathryn 2.0 X 450 Mm WIRE Left: [place]omeroy 11/25/2026 4933-8- 040 / Implanted: Qty: 2 on 11/25/2016 by Dewayne Felix MD at [facility] Ankle 0000 / 0000 Chandler External Fixation 1.5mm-2mm Kathryn Short Carbon #4933-1-001 - S0000 Left: Tamanna 11/25/2026 4933-1-001 / Implanted: Qty: 4 on 11/25/2016 by Dewayne Felix MD at [facility] Ankle 0000 / 0000 Chandler External Fixation Long Carbon 40mml Threaded #4933-1-021 - S0000 Left: Pomeroy 11/25/2026 4933-1-021 / Implanted: Qty: 2 on 11/25/2016 by Dewayne Felix MD at [facility] Ankle 0000 / 0000 Set Ring External Fixation Full 180mm Id Carbon Holex5 F/Foot & Ankle Fixation #4933-5-180 - S0000 Left: Tamanna 11/25/2026 4933-5-180 / Implanted: Qty: 3 on 11/25/2016 by Dewayne Felix MD at [facility] Ankle 0000 / 0000 Ring External Fixation 180mm #4934-4-180 - S0000 Left: Pomeroy 2026 4934-4-180 / Implanted: Qty: 1 on 11/25/2016 by Dewayne Felix MD at [facility] 0000 / 0000 Nut External Fixation 6mm Kathryn Short #4933-1-010 - S0000 Left: Pomeroy 4933-1-010 / Implanted: Qty: 25 on 11/25/2016 by Dewayne Felix MD at [facility] 0000 / 0000 Chandler External Fixation 6mm Kathryn Carbon #4933-1-702 - S000 Left: Pomeroy 11/25/2026 4933-1-702 / Implanted: Qty: 14 on 11/25/2016 by Dewayne Felix MD at [facility] Ankle 000 / 0000 Washer External Fixation 4mm Kathryn Yellow #4933-1-712 - S0000 Left: Tamanna 11/25/2026 4933-1-712 / Implanted: Qty: 1 on 11/25/2016 by Dewayne Felix MD at [facility] 0000 / 0000 Screw, Fixos Headless Compression [id number] Pomeroy #[id number] - S0 Left: Tamanna 03/03/2027 [id number] / Implanted: Qty: 1 on 03/03/2017 by Dewayne Felix MD at [facility] 0 / 0 documented as of this encounter Procedures Procedure Name Priority Date/Time Associated Diagnosis Comments NON-STRESS Routine 11/19/2018 9:56 Placental Results for this TEST AM CDT abnormality in third procedure are in trimester the results section. POCT URINALYSIS Routine 11/19/2018 9:29 Supervision of high Results for this AM CDT risk in procedure are in third trimester the results section. documented in this encounter Results NON-STRESS TEST (11/19/2018 9:56 AM CDT) Specimen Narrative Performed At nonreactive NST with spontaneous decels to 100s from baseline. Will send PACS to for prolonged monitoring. Performing Organization Address City/State/Zipcode Phone Number PACS POCT URINALYSIS W SPECIFIC GRAVITY (11/19/2018 9:29 AM CDT) POCT U SP GRAV . 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
--- OUTSIDE RECORDS SUMMARY | 2019-07-09 07:20 | XMS REPORT | Summary of Care ---
:1985 Author Organization [facility] Address [address] [place] [address] Care Team Providers Name Role Phone Orthopedics, Tdc Unavailable Unavailable Rimma Duran Primary Care Provider Reason for Visit Reason Comments MFM Visit NON-STRESS TEST Encounter Details Date Type Department Care Team Description 11/19/2018 [facility]ine [facility] Alison Reis MD [address] [facility] [id number] [place] [address] Glanzmann's thrombosthenin disorder (Primary Dx); Visit [facility], [facility] Supervision of high risk in third trimester; [address] [place] 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; [place], [place] Chronic hepatitis C without hepatic coma; [address] Obesity in ; [phone] History of section; Need for immunization against [...] Overview: Added automatically from request for surgery [id number] Cellulitis 12/30/2016 05/29/2018 Infection 12/29/2016 05/29/2018 Bleeding disorder 11/27/2016 05/29/2018 Pain 11/25/2016 05/29/2018 Bleeding 10/19/2016 05/29/2018 Pain, dental 10/11/2016 05/29/2018 Overview: Added automatically from request for surgery [id number] Infection of bone of left ankle 09/09/2016 [...] level: Not on file Occupational History 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 Received IV iron transfusionfor iron def anemia. Started on regimen of B12 supplementation for low B12. Sees them again 11/15 and 11/20. Has been seen by anesthesia on 09/19. Is being reviewed weekly in MFM conference. Getting twice weeklyNSTs and sono every week for placental mass (hydrops eval). Dr. Bishop ([facility] blood bank) is following.Has 44 platelet abs. Dario is trying to find platelets vs plasmapharesis prior to delivery. Waiting to here their recommendation. RCD scheduled for 12/31: 2U platelets, novoseven, TXA, uterotonics, GETA. 2. Twoprior CD Under GETA, complicated by intra-op bleeding requiring transfusions. Saw anesthesia at [facility] on 09/19. For RCD. 3.Multiparity Pt declines [...] Anemia S/p Tx with IV iron at [facility] 09/24 and . Last Hb was 10 on 11/01. RTC 1 week. NT nonreactive with spontaneous decels. Advised to go to LD for evaluation and prolongedmonitoring. documented in this encounter Plan of Treatment Date Type Specialty Care Team Description 11/22/2018 Routine OB Satellites 1, Jerel Nst Visit Ultrasound 11/22/2018 Routine OB Satellites Rimma Duran, Visit SALES SUPPORT COORDINATOR [address] [facility] [place] [address] [phone] 11/22/2018 Capability Lead Visit Maternal Inga Moore MD [address] [facility] [id number] [place] [address] Medicine 5, [facility] Usg Room 11/26/2018 Routine OB Satellites 2, Jerel Nst Visit Ultrasound 11/26/2018 Routine OB Satellites FacultyAd Visit [facility] 11/29/2018 Capability Lead Visit Maternal Medicine 11/29/2018 Routine OB Satellites 1, Jerel Nst Visit Ultrasound 11/29/2018 Routine OB Satellites Risk, Visit Bqp-Mkqay-Yj/High 12/06/2018 Capability Lead Visit Maternal Medicine 12/13/2018 Capability Lead Visit Maternal 2, [facility] Usg Room Medicine 12/20/2018 Capability Lead Visit Maternal Medicine 12/27/2018 Capability Lead Visit Maternal Medicine 12/31/2018 Hospital Encounter Obstetrics Inga Moore MD [id number] [place] [address] [phone] 12/31/2018 Surgery Surgery Faculty, Ob SECTION 301 [place] [address] 01/03/2019 Capability Lead Visit Maternal 3, [facility] U[facility] Room Medicine Health Maintenance Due Date Last Done Comments PNEUMOCOCCAL 0-64 YEARS COMBINED SERIES (1 1990 of 1 - PPSV23) INFLUENZA VACCINE 12/16/2018 06/05/2014 PAP SMEAR 05/29/2021 05/29/2018, 03/30/2004 DTaP,Tdap,and Td Vaccines (2 - Td) 10/15/2028 10/15/2018 documented as of this encounter Implants Implanted Type Area Sales Agent Trading Stamps Device Shelf Model / Identifier Expiration Date Serial / Lot Nail T2 Ankle Arthrodesis [id number] Left Tamanna F & A #[id number] - S0 NAIL Left: Tamanna 09/14/2021 [id number] / Implanted: Qty: 1 on 03/03/2017 by Dewayne Felix MD at [facility] Ankle 0 / [id number] Pin, [place] Self-Drilling Half [place] 5mm 150 X 25mm #5017-8-150s PIN Left: [place] 08/15/2019 5017-8-150S / Implanted: Qty: 1 on 11/25/2016 by Dewayne Felix MD at [facility] Ankle 0000 / [id number] Hexapod Strut PIN Left: [place] 11/25/2026 4935-0-040 / Implanted: Qty: 2 on 11/25/2016 by Dewayne Felix MD at [facility] Ankle 0000 / 000 Pin, [place] Self-Drilling Half [place] 5mm 150 X 25mm #5017-8-150s PIN Left: [place] 07/15/2021 5017-8-150S / Implanted: Qty: 1 on 11/25/2016 by Dewayne Felix MD at [facility] Ankle 0000 / [id number] Pin, [place] Self-Drilling Half [place] 5mm 150 X 25mm #5017-8-150s PIN Left: [place] 04/16/2021 5017-8-150S / Implanted: Qty: 1 on 11/25/2016 by Dewayne Felix MD at [facility] Ankle 0000 / [id number] Pin, [place] Self-Drilling Half [place] 5mm 150 X 25mm #5017-8-150s PIN Left: [place] 04/16/2021 5017-8-150S / Implanted: Qty: 1 on 11/25/2016 by Dewayne Felix MD at [facility] Ankle 0000 / [id number] Pin, [place] Self-Drilling Half [place] 5mm 150 X 25mm #5017-8-150s PIN Left: [place] 07/15/2021 5017-8-150S / Implanted: Qty: 1 on 11/25/2016 by Dewayne Felix MD at [facility] Ankle 0000 / [id number] Wire [place] - Medium 1.5 To 2.0 Mm PIN Left: [place]anna 11/25/2026 4933-1- 002 / Implanted: Qty: 2 on 11/25/2016 by Dewayne Felix MD at [facility] Ankle 0000 / 0000 Wire [place] Adapter Short PIN Left: Tamanna 11/25/2026 4933-1-004 / Implanted: Qty: 2 on 11/25/2016 by Dewayne Felix MD at [facility] Ankle 0000 / 0000 [place] Pin Adaptor, Short 6mm # 4933-1-020 - S0000 PIN Left: [place] 2019 4933-1-020 / Implanted: Qty: 3 on 11/25/2016 by Dewayne Felix MD at [facility] Ankle 0000 / 0000 Hexapod Strut Medium PIN Left: [place] 4935-0-030 / Implanted: Qty: 6 on 11/25/2016 by Dewayne Felix MD at [facility] Ankle 0000 / 0000 Foot Arch RING Left: [place] 11/25/2026 4934-6-180 / Implanted: Qty: 1 on 11/25/2016 by Dewayne Felix MD at [facility] Ankle 0000 / 0000 Screw, [place] 5 X 30mm Fully Thrded Locking #1896-5030s - S0 SCREW Left: [place]anna 06/14/2021 1896-5030S / Implanted: Qty: 1 on 03/03/2017 by Dewayne Felix MD at [facility] Ankle 0 / [id number] Screw, [place] 5 X 50mm Fully Thrded Locking #1896-5050s - S0 SCREW Left: [place] 10/14/2020 1896-5050S / Implanted: Qty: 1 on 03/03/2017 by Dewayne Felix MD at [facility] Ankle 0 / [id number] Screw Headless Compression [id number] [place] #[id number] - S0 SCREW Left: [place] 03/03/2027 [id number] / Implanted: Qty: 1 on 03/03/2017 by Dewayne Felix MD at [facility] Ankle 0 / 0 K Wire [id number] WIRE Left: [place] 11/25/2026 5101-2-450 / Implanted: Qty: 2 on 11/25/2016 by Dewayne Felix MD at [facility] Ankle 0000 / 0000 Wire With [place] - Kathryn 2.0 X 450 Mm WIRE Left: [place] 11/25/2026 4933-8- 040 / Implanted: Qty: 2 on 11/25/2016 by Dewayne Felix MD at [facility] Ankle 0000 / 0000 [place] External Fixation 1.5mm-2mm Kathryn Short Carbon #4933-1-001 - S0000 Left: [place]anna 11/25/2026 4933-1-001 / Implanted: Qty: 4 on 11/25/2016 by Dewayne Felix MD at [facility] Ankle 0000 / 0000 [place] External Fixation Long Carbon 40mml Threaded #4933-1-021 - S0000 Left: [place] 11/25/2026 4933-1-021 / Implanted: Qty: 2 on 11/25/2016 by Dewayne Felix MD at [facility] Ankle 0000 / 0000 Set Ring External Fixation Full 180mm Id Carbon Holex5 F/Foot & Ankle Fixation #4933-5-180 - S0000 Left: [place] 11/25/2026 4933-5-180 / Implanted: Qty: 3 on 11/25/2016 by Dewayne Felix MD at [facility] Ankle 0000 / 0000 Ring External Fixation 180mm #4934-4-180 - S0000 Left: [place] 2026 4934-4-180 / Implanted: Qty: 1 on 11/25/2016 by Dewayne Felix MD at [facility] 0000 / 0000 Nut External Fixation 6mm Kathryn Short #4933-1-010 - S0000 Left: [place] 4933-1-010 / Implanted: Qty: 25 on 11/25/2016 by Dewayne Felix MD at [facility] 0000 / 0000 [place] External Fixation 6mm Kathryn Carbon #4933-1-702 - S000 Left: [place] 11/25/2026 4933-1-702 / Implanted: Qty: 14 on 11/25/2016 by Dewayne Felix MD at [facility] Ankle 000 / 0000 Washer External Fixation 4mm Kathryn Yellow #4933-1-712 - S0000 Left: [place] 11/25/2026 4933-1-712 / Implanted: Qty: 1 on 11/25/2016 by Dewayne Felix MD at [facility] 0000 / 0000 Screw, Fixos Headless Compression [id number] [place] #[id number] - S0 Left: Tamanna 03/03/2027 [id number] / Implanted: Qty: 1 on 03/03/2017 by Dewayne Felix MD at [facility] 0 / 0 documented as of this [...] Type Group [facility] MEDICAID OF xxxxxxxxx 2018-Present [phone] [address] [place] [id number] [place] [phone] documented as of this encounter Advance Directives Name Relationship Healthcare Agent Communication Relationship Geovanny Boyd Mother Primary healthcare agent [phone]
--- OUTSIDE RECORDS SUMMARY | 2019-07-09 07:20 | XMS REPORT | Summary of Care ---
:1985 Author Organization [facility] Address [address] [place] [address] Care Team Providers Name Role Phone Orthopedics, Tdc Unavailable Unavailable Rimma Duran Primary Care Provider Reason for Visit Auth/Cert Status Reason Specialty Diagnoses / Procedures Referred By Contact Referred To Contact Obstetrics Diagnoses reduced movement Adc Labor And Delivery [address] [place] [address] [place] [address] Encounter Details Date Type Department Care Team Description 11/19/2018 Hospital Encounter [facility] Labor and Delivery Lorrie Olmos MD [address] [place] [address] [address] [place] [address] [phone] Allergies Active Allergy Reactions Severity Noted Date [...] Overview: Added automatically from request for surgery [id number] Cellulitis 12/30/2016 05/29/2018 Infection 12/29/2016 05/29/2018 Bleeding disorder 11/27/2016 05/29/2018 Pain 11/25/2016 05/29/2018 Bleeding 10/19/2016 05/29/2018 Pain, dental 10/11/2016 05/29/2018 Overview: Added automatically from request for surgery [id number] Infection of bone of left ankle 09/09/2016 [...] Sign Reading Time Taken Comments Blood Pressure 135/65 11/19/2018 12:41 PM CDT Pulse 72 11/19/2018 3:45 PM CDT Temperature 36.8 C (98.3 F) 11/19/2018 12:41 PM CDT Respiratory Rate 16 11/19/2018 12:41 PM CDT Oxygen Saturation 100% 11/19/2018 3:15 PM CDT Inhaled Oxygen Concentration - - Weight 109.8 kg (242 lb) 11/19/2018 12:41 PM CDT Height 167.6 cm (5' 6") 11/19/2018 12:41 PM CDT Body Mass Index 39.06 11/19/2018 12:41 PM CDT documented in this encounter Discharge Instructions Manju Rinaldi RN - 11/19/2018Preterm Labor (36 weeks and before ): 1. Drink at least 10-12 glasses of water daily. 2. When resting or sleeping, stay off your back as much as possible. Use pillows for extra support. 3. Be sure to empty your bladder frequently at least every 2 hours. 4. No sexual intercourse or orgasm until checking with your doctor. 5. No tampons or douching until checking with your doctor. 6. Return to Labor and Delivery if you have any of the followin. Tightening of the uterus (contractions) 6 or more per hour. 2. Periodlike cramping. 3. Low back pain. 4. Pelvic pressure or aching thighs. 5. Abdominal cramping with or without diarrhea. 6. Vaginal spotting or bleeding with any of the above symptoms. 7. Leaking of fluid from your vagina. Term Labor (37+ weeks): Return to Labor and Delivery/ Center if: 1. Your contractions become more regular, at least every 5-6 minutes apart for one hour after walking and drinking a large glass of water. 2. Your bag of water starts leaking or you have a gush of water from your vagina. 3. If you are not sure if your water has broken: 1. Go to the bathroom and empty your bladder. 2. Put on a pad. If it is wet within hour, you may be leaking from your bag of water. You should come to the hospital to be checked right away. 3. Note the color and odor of the fluid. 4. Your babys movements have decreased or if your baby is not moving. 5. You have vaginal bleeding as heavy as a period. Decreased Movement: 1. Your baby should move at least 10 times in 2 hrs. 2. Keep a record of your babys movements on the Kick Count sheet provided 3. If you feel your baby is not moving as much as usual, do the followin. Drink a large glass of water. 2. Make sure you have eaten a meal recently. 3. Lie on your left side and count the babys movements. 4. If you do not have at least 10 movements in 2 hours, you should be seen as soon as possible in Labor and Delivery, or call your clinic, whichever is closer. 5. IF YOUR BABYS MOVEMENTS ARE MUCH SLOWER THAN NORMAL, OR ABSENT, AND YOU ARE WORRIED, DO NOT WAIT AN ENTIRE DAY. IT IS BETTER TO BE REASSURED THAN TO FIND A PROBLEM WITH YOUR BABY THAT COULD HAVE BEEN AVOIDED! Urinary Tract Infections: 1. Drink plenty of fluids, at least 10-12 glasses of water daily. 2. Have your prescription filled today. 3. Take all of the medication prescribed, even if you are feeling better. 4. Empty your bladder often at least every 2 hours. 5. Be sure to wipe from front to back after urinating. 6. Call your clinic if: 1. You have a fever of 100.4 F by mouth after taking your temperature twice, 4 hours apart. 2. You see blood in your urine. 3. You are unable to urinate. 4. You have severe pain when you urinate. 7. Avoid alcohol, soft drinks and drinks with caffeine such as teas and coffee during this treatment. Bleedin. It is normal to have some red, pink, or brown spotting after a vaginal exam. 2. [place], light red and brownish spotting is not unusual, especially later in the . 3. However, if heavy bleeding is present: a. Note the amount with the number of pads saturated. b. Note the color of the bleeding. c. Note any pain associated with the bleeding. d. Call Labor and Delivery or your clinic immediately. Fever: 1. Call your clinic if you have a fever of 100.4 F by mouth after taking your temperature twice, 4 hours apart. 2. Do not take any qybk-ogz-gzjdezj medications for an illness unless you have been instructed to doso by your physician or nurse. You should only take medicines on the list of safe medicines given to you at your clinic. Do not take more than the recommended doses. High Blood Pressure: Return to Labor and Delivery if you have: 1. Swelling in your face, puffiness around your eyes, more than slight swelling of your hands, or excessive or sudden swelling of your feet or ankles. 2. Sudden weight gain (more than 4 pounds in a week). 3. Throbbing headaches that wont go away, even after taking uhqv-aqx-xegkxrz medicines as instructed by your care provider. 4. Changes in vision, including blurry vision, a sensation of flashing lights or spots, or temporaryloss of vision. 5. Severe pain or tenderness in your upper stomach area. This may include nausea and vomiting. 6. AttachmentsThe following attachments cannot be sent through Care Everywhere.Eating Well During - VIDEO (Surinamese), Healthy Eating Habits During (Surinamese), Nutrition During (Surinamese)Kick Counts ( [place]inamese)documented in this encounter Plan of Treatment Date Type Specialty Care Team Description 11/22/2018 Routine [facility] 11/22/2018 Routine OB Satellites Rimma Duran, Visit TRAFFIC RATE COMPUTER [address] [place] [address] [phone] 11/22/2018 Electrician Deck Visit Maternal Inga Moore MD [id number] [place], [place] [id number] Medicine 5, [facility] Usg Room 11/26/2018 Routine OB Satellites 2, Ang-Rmchp Nst Visit Ultrasound 11/26/2018 Routine OB Satellites Faculty, Ang Rmchp Visit Mfm 11/29/2018 Electrician Deck Visit Maternal Medicine 11/29/2018 Routine OB Satellites 1, Ang-Rmchp Nst Visit Ultrasound 11/29/2018 Routine OB Satellites Risk, Visit Hgf-Inqpa-Gg/High 12/06/2018 Electrician Deck Visit Maternal Medicine 12/13/2018 Electrician Deck Visit Maternal 2, [facility] Usg Room Medicine 12/20/2018 Electrician Deck Visit Maternal Medicine 12/27/2018 Electrician Deck Visit Maternal Medicine 12/31/2018 Hospital Encounter Obstetrics Inga Moore MD [address] [id number] [place], [place] [address] 12/31/2018 Surgery Surgery Faculty, Ob SECTION [address] [place] [address] 01/03/2019 Electrician Deck Visit Maternal 3, [facility] U[facility] Room Medicine Health Maintenance Due Date Last Done Comments PNEUMOCOCCAL 0-64 YEARS COMBINED SERIES (1 1990 of 1 - PPSV23) INFLUENZA VACCINE 12/16/2018 06/05/2014 PAP SMEAR 05/29/2021 05/29/2018, 03/30/2004 DTaP,Tdap,and Td Vaccines (2 - Td) 10/15/2028 10/15/2018 documented as of this encounter Implants Implanted Type Area Chief School Finance Officer Device Shelf Model / Identifier Expiration Date Serial / Lot Nail T2 Ankle Arthrodesis [id number] Left [place] F & A #[id number] - S0 NAIL Left: [place]anna 09/14/2021 [id number] / Implanted: Qty: 1 on 03/03/2017 by Dewayne Felix MD at [facility] Ankle 0 / [id number] Pin, [place] Self-Drilling Half [place] 5mm 150 X 25mm #5017-8-150s PIN Left: [place] 08/15/2019 5017-8-150S / Implanted: Qty: 1 on 11/25/2016 by Dewayne Felix MD at [facility] Ankle 0000 / [id number] Hexapod Strut PIN Left: [place] 11/25/2026 4935-0-040 / Implanted: Qty: 2 on 11/25/2016 by Dewayne Felix MD at [facility] Ankle 0000 / 000 Pin, [place] Self-Drilling Half [place] 5mm 150 X 25mm #5017-8-150s PIN Left: [place] 07/15/2021 5017-8-150S / Implanted: Qty: 1 on 11/25/2016 by Dewayne Felix MD at [facility] Ankle 0000 / [id number] Pin, [place] Self-Drilling Half [place] 5mm 150 X 25mm #5017-8-150s PIN Left: [place] 04/16/2021 5017-8-150S / Implanted: Qty: 1 on 11/25/2016 by Dewayne Felix MD at [facility] Ankle 0000 / [id number] Pin, [place] Self-Drilling Half [place] 5mm 150 X 25mm #5017-8-150s PIN Left: [place] 04/16/2021 5017-8-150S / Implanted: Qty: 1 on 11/25/2016 by Dewayne Felix MD at [facility] Ankle 0000 / [id number] Pin, [place] Self-Drilling Half [place] 5mm 150 X 25mm #5017-8-150s PIN Left: [place] 07/15/2021 5017-8-150S / Implanted: Qty: 1 on 11/25/2016 by Dewayne Felix MD at [facility] Ankle 0000 / [id number] Wire [place] - Medium 1.5 To 2.0 Mm PIN Left: [place] 11/25/2026 4933-1- 002 / Implanted: Qty: 2 on 11/25/2016 by Dewayne Felix MD at [facility] Ankle 0000 / 0000 Wire [place] Adapter Short PIN Left: [place] 11/25/2026 4933-1-004 / Implanted: Qty: 2 on 11/25/2016 by Dewayne Felix MD at [facility] Ankle 0000 / 0000 [place] Pin Adaptor, Short 6mm # 4933-1-020 - S0000 PIN Left: [place] 2019 4933-1-020 / Implanted: Qty: 3 on 11/25/2016 by Dewayne Felix MD at [facility] Ankle 0000 / 0000 Hexapod Strut Medium PIN Left: [place] 4935-0-030 / Implanted: Qty: 6 on 11/25/2016 by Dewayne Felix MD at [facility] Ankle 0000 / 0000 Foot Arch RING Left: [place] 11/25/2026 4934-6-180 / Implanted: Qty: 1 on 11/25/2016 by Dewayne Felix MD at [facility] Ankle 0000 / 0000 Screw, [place] 5 X 30mm Fully Thrded Locking #1896-5030s - S0 SCREW Left: [place] 06/14/2021 1896-5030S / Implanted: Qty: 1 on 03/03/2017 by Dewayne Felix MD at [facility] Ankle 0 / [id number] Screw, [place] 5 X 50mm Fully Thrded Locking #1896-5050s - S0 SCREW Left: [place] 10/14/2020 1896-5050S / Implanted: Qty: 1 on 03/03/2017 by Dewayne Felix MD at [facility] Ankle 0 / [id number] Screw Headless Compression [id number] [place] #[id number] - S0 SCREW Left: [place] 03/03/2027 [id number] / Implanted: Qty: 1 on 03/03/2017 by Dewayne Felix MD at [facility] Ankle 0 / 0 K Wire [id number] WIRE Left: [place] 11/25/2026 5101-2-450 / Implanted: Qty: 2 on 11/25/2016 by Dewayne Felix MD at [facility] Ankle 0000 / 0000 Wire With [place] - Kathryn 2.0 X 450 Mm WIRE Left: [place] 11/25/2026 4933-8- 040 / Implanted: Qty: 2 on 11/25/2016 by Dewayne Felix MD at [facility] Ankle 0000 / 0000 [place] External Fixation 1.5mm-2mm Kathryn Short Carbon #4933-1-001 - S0000 Left: [place] 11/25/2026 4933-1-001 / Implanted: Qty: 4 on 11/25/2016 by Dewayne Felix MD at [facility] Ank[facility] 0000 / 0000 [place] External Fixation Long Carbon 40mml Threaded #4933-1-021 - S0000 Left: [place] 11/25/2026 4933-1-021 / Implanted: Qty: 2 on 11/25/2016 by Dewayne Felix MD at [facility] Ankle 0000 / 0000 Set Ring External Fixation Full 180mm Id Carbon Holex5 F/Foot & Ankle Fixation #4933-5-180 - S0000 Left: [place] 11/25/2026 4933-5-180 / Implanted: Qty: 3 on 11/25/2016 by Dewayne Felix MD at [facility] Ankle 0000 / 0000 Ring External Fixation 180mm #4934-4-180 - S0000 Left: [place] 2026 4934-4-180 / Implanted: Qty: 1 on 11/25/2016 by Dewayne Felix MD at [facility] Ank[facility] 0000 / 0000 Nut External Fixation 6mm [place] Short #4933-1-010 - S0000 Left: [place] 4933-1-010 / Implanted: Qty: 25 on 11/25/2016 by Dewayne Felix MD at [facility] Ank[facility] 0000 / 0000 [place] External Fixation 6mm Kathryn Carbon #4933-1-702 - S000 Left: [place] 11/25/2026 4933-1-702 / Implanted: Qty: 14 on 11/25/2016 by Dewayne Felix MD at [facility] Ank[facility] 000 / 0000 Washer External Fixation 4mm [place]ryn Yellow #4933-1-712 - S0000 Left: [place] 11/25/2026 4933-1-712 / Implanted: Qty: 1 on 11/25/2016 by Dewayne Felix MD at [facility] 0000 / 0000 Screw, Fixos Headless Compression [id number] [place] #[id number] - S0 Left: [place] 03/03/2027 [id number] / Implanted: Qty: 1 on 03/03/2017 by Dewayne Felix MD at [facility] 0 / 0 documented as of this encounter Procedures Procedure Name Priority Date/Time Associated Diagnosis Comments CONSENT/REFUSAL FOR Routine 11/19/2018 12:28 PM DIAGNOSIS AND TREATMENT CDT ASSIGNMENT OF BENEFITS Routine 11/19/2018 12:28 PM CDT documented in this encounter Results Not on filedocumented in this encounter Administered Medications Medication Order MAR Action Action Date Dose Rate Site acetaminophen (TYLENOL) tablet Given 11/19/2018 3:02 PM CDT 650 mg 650 mg 650 mg, Oral, Q6HPRN, Starting 11/19/18 at 1455, Until Discontinued, Routine, Pain (scale 1-3), Pain (scale 4-6) documented in this encounter Insurance Payer Benefit Plan / Subscriber ID Effective Dates Phone Address Type Group [facility] MEDICAID OF xxxxxxxxx 2018-Present [phone] [address] Medicaid [place] [id number] [place] [phone] (Home) [place] [address] documented as of this encounter Advance Directives Name Relationship Healthcare Agent Communication Relationship Geovanny Boyd Mother Primary healthcare agent [phone]
--- OUTSIDE RECORDS SUMMARY | 2019-07-09 07:20 | XMS REPORT | Summary of Care ---
:1985 Author Organization [facility] Address [address] [place] [address] Care Team Providers Name Role Phone Orthopedics, Tdc Unavailable Unavailable Rimma Duran Primary Care Provider Reason for Visit Reason Comments MFM Visit NON-STRESS TEST Encounter Details Date Type Department Care Team Description [facility] [address] [facility] [id number] [place] [address] Glanzmann's thrombosthenin disorder (Primary Dx); Visit [facility], [facility] Supervision of high risk in third trimester; [address] 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; [place], [place] Chronic hepatitis C without hepatic coma; [id number] Obesity in ; [phone] History of section; Need for immunization against [...] Overview: Added automatically from request for surgery [id number] Cellulitis 12/30/2016 05/29/2018 Infection 12/29/2016 05/29/2018 Bleeding disorder 11/27/2016 05/29/2018 Pain 11/25/2016 05/29/2018 Bleeding 10/19/2016 05/29/2018 Pain, dental 10/11/2016 05/29/2018 Overview: Added automatically from request for surgery [id number] Infection of bone of left ankle 09/09/2016 [...] IF SURGERY- consult Heme; 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 Received IV iron transfusionfor iron def anemia. Started on regimen of B12 supplementation for low B12. Sees them again 11/15 and 11/20. Has been seen by anesthesia on 09/19. Is being reviewed weekly in MFM conference. Getting twice weeklyNSTs and sono every week for placental mass (hydrops eval). Dr. Bishop ([facility] blood bank) is following.Has 44 platelet abs. Dario is trying to find platelets vs plasmapharesis prior to delivery. Waiting to here their recommendation. RCD scheduled for 12/31: 2U platelets, novoseven, TXA, uterotonics, GETA. 2. Twoprior CD Under GETA, complicated by intra-op bleeding requiring transfusions. Saw anesthesia at [facility] on 09/19. For RCD. 3.Multiparity Pt [...] Anemia S/p Tx with IV iron at [facility] 09/24 and . Last Hb was 10 on 11/01. RTC 1 week. NT nonreactive with spontaneous decels. Advised to go to LD for evaluation and prolongedmonitoring. documented in this encounter Plan of Treatment Date Type Specialty Care Team Description 11/22/2018 Routine OB Satellites 1, Jerel Nst Visit Ultrasound 11/22/2018 Routine OB Satellites Rimma Duran, Visit [facility] [address] [facility] [place] [address] [phone] 11/22/2018 Windshield Wiper Repairer Visit Maternal Inga Moore MD [address] [facility] [id number] [place] [address] Medicine 5, [facility] 11/26/2018 Routine OB Satellites 2, Jerel Nst Visit Ultrasound 11/26/2018 Routine OB Satellites FacultyAd Visit [facility] 11/29/2018 Windshield Wiper Repairer Visit Maternal Medicine 11/29/2018 Routine OB Satellites 1, Jerel Nst Visit Ultrasound 11/29/2018 Routine OB Satellites Risk, Visit [facility]/High 12/06/2018 Windshield Wiper Repairer Visit Maternal Medicine 12/13/2018 Windshield Wiper Repairer Visit Maternal 2, [facility] Medicine 12/20/2018 Windshield Wiper Repairer Visit Maternal Medicine 12/27/2018 Windshield Wiper Repairer Visit Maternal Medicine 12/31/2018 Hospital Encounter Obstetrics Inga Moore MD [id number] [place] [address] [phone] 12/31/2018 Surgery Surgery Faculty, Ob SECTION [address] [place] [address] 01/03/2019 Windshield Wiper Repairer Visit Maternal 3, [facility] Medicine Health Maintenance Due Date Last Done Comments PNEUMOCOCCAL 0-64 YEARS COMBINED SERIES (1 1990 of 1 - PPSV23) INFLUENZA VACCINE 12/16/2018 06/05/2014 PAP SMEAR 05/29/2021 05/29/2018, 03/30/2004 DTaP,Tdap,and Td Vaccines (2 - Td) 10/15/2028 10/15/2018 documented as of this encounter Implants Implanted Type Area Hand Violin Maker Device Shelf Model / Identifier Expiration Date Serial / Lot Nail T2 Ankle Arthrodesis [id number] Left Tamanna F & A #[id number] - S0 NAIL Left: Tamanna 09/14/2021 [id number] / Implanted: Qty: 1 on 03/03/2017 by Dewayne Felix MD at [facility] Ankle 0 / [id number] Pin, [place] Self[employer]Drilling Half [place] 5mm 150 X 25mm #5017-8-150s PIN Left: [place] 08/15/2019 5017-8-150S / Implanted: Qty: 1 on 11/25/2016 by Dewayne Felix MD at [facility] Ankle 0000 / [id number] Hexapod Strut PIN Left: [place] 11/25/2026 4935-0-040 / Implanted: Qty: 2 on 11/25/2016 by Dewayne Felix MD at [facility] Ankle 0000 / 000 Pin, [place]anna Self-Drilling Half [place] 5mm 150 X 25mm #5017-8-150s PIN Left: [place] 07/15/2021 5017-8-150S / Implanted: Qty: 1 on 11/25/2016 by Dewayne Felix MD at [facility] Ankle 0000 / [id number] Pin, [place] Self-Drilling Half [place] 5mm 150 X 25mm #5017-8-150s PIN Left: [place] 04/16/2021 5017-8-150S / Implanted: Qty: 1 on 11/25/2016 by Dewayne Felix MD at [facility] Ankle 0000 / [id number] Pin, [place]anna Self-Drilling Half [place] 5mm 150 X 25mm #5017-8-150s PIN Left: [place] 04/16/2021 5017-8-150S / Implanted: Qty: 1 on 11/25/2016 by Dewayne Felix MD at [facility] Ankle 0000 / [id number] Pin, [place] Self-Drilling Half [place] 5mm 150 X 25mm #5017-8-150s PIN Left: [place] 07/15/2021 5017-8-150S / Implanted: Qty: 1 on 11/25/2016 by Dewayne Felix MD at [facility] Ankle 0000 / [id number] Wire [place] - Medium 1.5 To 2.0 Mm PIN Left: Tamanna 11/25/2026 4933-1- 002 / Implanted: Qty: 2 on 11/25/2016 by Dewayne Felix MD at [facility] Ankle 0000 / 0000 Wire [place] Adapter Short PIN Left: Tamanna 11/25/2026 4933-1-004 / Implanted: Qty: 2 on 11/25/2016 by Dewayne Felix MD at [facility] Ankle 0000 / 0000 [place] Pin Adaptor, Short 6mm # 4933-1-020 - S0000 PIN Left: [place] 2019 4933-1-020 / Implanted: Qty: 3 on 11/25/2016 by Dewayne Felix MD at [facility] Ankle 0000 / 0000 Hexapod Strut Medium PIN Left: [place] 4935-0-030 / Implanted: Qty: 6 on 11/25/2016 by Dewayne Felix MD at [facility] Ankle 0000 / 0000 Foot Arch RING Left: Tamanna 11/25/2026 4934-6-180 / Implanted: Qty: 1 on 11/25/2016 by Dewayne Felix MD at [facility] Ankle 0000 / 0000 Screw, [place] 5 X 30mm Fully Thrded Locking #1896-5030s - S0 SCREW Left: Tamanna 06/14/2021 [id number] / Implanted: Qty: 1 on 03/03/2017 by Dewayne Felix MD at [facility] Ankle 0 / [id number] Screw, [place] 5 X 50mm Fully Thrded Locking #1896-5050s - S0 SCREW Left: [place] 10/14/2020 1896-5050S / Implanted: Qty: 1 on 03/03/2017 by Dewayne Felix MD at [facility] Ankle 0 / [id number] Screw Headless Compression [id number] [place] #[id number] - S0 SCREW Left: [place] 03/03/2027 [id number] / Implanted: Qty: 1 on 03/03/2017 by Dewayne Felxi MD at [facility] Ankle 0 / 0 K Wire [id number] WIRE Left: Tamanna 11/25/2026 5101-2-450 / Implanted: Qty: 2 on 11/25/2016 by Dewayne Felix MD at [facility] Ankle 0000 / 0000 Wire With [place] - Kathryn 2.0 X 450 Mm WIRE Left: [place] 11/25/2026 4933-8- 040 / Implanted: Qty: 2 on 11/25/2016 by Dewayne Felix MD at [facility] Ankle 0000 / 0000 [place] External Fixation 1.5mm-2mm Kathryn Short Carbon #4933-1-001 - S0000 Left: Tamanna 11/25/2026 4933-1-001 / Implanted: Qty: 4 on 11/25/2016 by Dewayne Felix MD at [facility] Ankle 0000 / 0000 [place] External Fixation Long Carbon 40mml Threaded #4933-1-021 - S0000 Left: [place] 11/25/2026 4933-1-021 / Implanted: Qty: 2 on 11/25/2016 by Dewayne Felix MD at [facility] Ankle 0000 / 0000 Set Ring External Fixation Full 180mm Id Carbon Holex5 F/Foot & Ankle Fixation #4933-5-180 - S0000 Left: Tamanna 11/25/2026 4933-5-180 / Implanted: Qty: 3 on 11/25/2016 by Dewayne Felix MD at [facility] Ankle 0000 / 0000 Ring External Fixation 180mm #4934-4-180 - S0000 Left: [place] 2026 4934-4-180 / Implanted: Qty: 1 on 11/25/2016 by Dewayne Felix MD at [facility] 0000 / 0000 Nut External Fixation 6mm Kathryn Short #4933-1-010 - S0000 Left: [place] 4933-1-010 / Implanted: Qty: 25 on 11/25/2016 by Dewayne Felix MD at [facility] 0000 / 0000 [place] External Fixation 6mm Kathryn Carbon #4933-1-702 - S000 Left: [place] 11/25/2026 4933-1-702 / Implanted: Qty: 14 on 11/25/2016 by Dewayne Felix MD at [facility] Ankle 000 / 0000 [place] External Fixation 4mm Kathryn Yellow #4933-1-712 - S0000 Left: Tamanna 11/25/2026 4933-1-712 / Implanted: Qty: 1 on 11/25/2016 by Dewayne Felix MD at [facility] 0000 / 0000 Screw, Fixos Headless Compression [id number] [place] #[id number] - S0 Left: Tamanna 03/03/2027 [id number] / Implanted: Qty: 1 on 03/03/2017 by Dewayne Felix MD at [facility] 0 / 0 documented as of [...] Type Group TMHP MEDICAID OF xxxxxxxxx 2018-Present [phone] [address] Medicaid [place] [id number] [place] [id number] documented as of this encounter Advance Directives Name Relationship Healthcare Agent Communication Relationship Geovanny Boyd Mother Primary healthcare agent [email or web address]
--- OUTSIDE RECORDS SUMMARY | 2019-07-09 07:21 | XMS REPORT | Summary of Care ---
:1985 Author Organization [facility] Address [address] [place] [address] Care Team Providers Name Role Phone Orthopedics, Tdc Unavailable Unavailable Rimma Duran Primary Care Provider Reason for Visit Reason Comments Care NON-STRESS TEST Encounter Details Date Type Department Care Team Description 11/22/2018 Routine [facility] Rimma Duran Supervision of high risk in third trimester (Primary Dx); Visit KODI Mcgrath Glanzmann's thrombosthenin disorder; [address] 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; [place], [place] S Chronic hepatitis C without hepatic coma; [address] Louis A Multiparity; [phone] [place], [place] History of section; [address] Anemia of mother in , antepartum; [phone] Rubella non-immune status, antepartum; [phone] Obesity (BMI 30-39.9); (Fax) Back pain affecting in third trimester Allergies Active Allergy Reactions Severity Noted Date Comments Aspirin Unknown - See comments 12/24/2009 Unable to take d/t clotting disorder. Penicillin Unknown - See comments 06/05/2016 documented as of this encounter (statuses as of 11/22/2018) Medications Medication Sig Dispensed Refills Start Date [...] as of this encounter (statuses as of 11/22/2018) Active Problems Problem Noted Date Anemia of mother in , antepartum 11/19/2018 Obesity (BMI 30-39.9) 10/22/2018 Rubella non-immune status, antepartum 10/09/2018 Placental abnormality 10/09/2018 ASCUS with positive [...] as of this encounter (statuses as of 11/22/2018) Resolved Problems Problem Noted Date Resolved Date Threatened 11/22/2018 11/22/2018 Anemia of mother in , antepartum 08/02/2018 10/09/2018 Nausea and vomiting during 06/26/2018 10/09/2018 Headache in 06/26/2018 10/09/2018 Susceptible to varicella (non-immune), currently 05/30/20182018 Overview: Address pp Surgery, elective 02/02/2017 05/29/2018 Ankle fracture, bimalleolar, closed, left, sequela 02/02/2017 10/09/2018 Overview: Added automatically from request for surgery [id number] Cellulitis 12/30/2016 05/29/2018 Infection 12/29/2016 05/29/2018 Bleeding disorder 11/27/2016 05/29/2018 Pain 11/25/2016 05/29/2018 Bleeding 10/19/2016 05/29/2018 Pain, dental 10/11/2016 05/29/2018 Overview: Added automatically from request for surgery [id number] Infection of bone of left ankle 09/09/2016 10/09/2018 Obesity in 09/08/2016 11/19/2018 Unspecified dental caries 08/08/2016 05/29/2018 Tooth pain 08/08/2016 05/29/2018 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 06/05/2016 11/03/2016 Anemia 05/21/2016 05/29/2018 documented as of this encounter (statuses as of 11/22/2018) Immunizations Name Administration Dates Next Due TDAP [...] Sign Reading Time Taken Comments Blood Pressure 108/62 11/22/2018 8:11 AM CDT Pulse 66 11/22/2018 8:11 AM CDT Temperature 36.7 C (98.1 F) 11/22/2018 8:11 AM CDT Respiratory Rate 16 11/22/2018 8:11 AM CDT Oxygen Saturation - - Inhaled Oxygen Concentration - - Weight 111.1 kg (245 lb) 11/22/2018 8:11 AM CDT Height 167.6 cm (5' 6") 11/22/2018 8:11 AM CDT Body Mass Index 39.54 11/22/2018 8:11 AM CDT documented in this encounter Progress Notes Rimma Duran, HAULAGE ENGINE OPERATOR - 11/22/2018 8:30 AM CDT Chief complaint: Chief Complaint Patient presents with Care NON-STRESS TEST HPI Bri Boyd is a 33 year old female is a @ 33w4d here for visit. Patient's last menstrual period was 04/01/2018 (exact date). Estimated Date of Delivery: 9/22/19 Today she complains of back pain for which she is taking Tylenol. She is taking PNV. She reports good FM. She denies any ctx/cramping, VB, LOF, DANGELO , visual disturbance, vaginal discharge or dysuria. She denies any foreign travel. She also denies any physical, sexual or emotional abuse. 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[facility], requires multiple platelets and PRBC [...] 03/03/2017 Surgeon: Dewayne Felix MD; Location: [facility] ANKLE HARDWARE REMOVAL ANKLE ORIF SECTION x2 CHOLECYSTECTOMY EXTERNAL FIXATOR PLACEMENT FOR LOWER EXTREMITY (SHX) Left 11/25/2016 Surgeon: Dewayne Felix MD; Location: [facility] EXTERNAL FIXATOR REMOVAL OF LOWER EXTREMITY (SHX) Left 02/17/2017 Surgeon: Dewayne Felix MD; Location: [facility] LAP,INGUINAL HERNIA REPR,INITIAL Right OSTEOTOMY Left 11/25/2016 Surgeon: Dewayne Felix MD; Location: [facility] SPLINT APPLICATION Left 02/17/2017 Surgeon: Dewayne Felix MD; Location: [facility] Location SURGICAL EXTRACTION - ERUPTED TEETH 10/19/2016 TIBIOCALCANEAL ARTHRODESIS Left 03/03/2017 Surgeon: Dewayne Felix MD; Location: [facility] OR Location TOOTH EXTRACTION TOOTH EXTRACTION N/A 10/19/2016 Surgeon: Jus Tinoco; Location: [facility] OR Location Social History Socioeconomic History Marital status: Single Spouse name: Not on file Number of children: Not on file Years of education: Not on file Highest education level: Not on file Occupational History 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 Radiology Radiology pending. Allergies Bri is allergic to asa [aspirin] and penicillin. Medications Bri has a current medication list which includes the following prescription(s) : ferrous sulfate, vitamin b-12, vitamin c, and pnv 67-iron ps-folate no.1-dha. Review of Systems Constitutional: Negative for appetite change, fatigue and fever. Eyes: Negative for visual disturbance. Respiratory: Negative. Cardiovascular: Negative for palpitations and leg swelling. Gastrointestinal: Negative for abdominal pain, constipation, diarrhea, nausea and vomiting. Genitourinary: Negative. Negative for dysuria, vaginal bleeding, vaginal discharge and pelvic pain. Musculoskeletal: Positive for back pain. Skin: Negative for rash. Neurological: Negative for dizziness, light-headedness and headaches. Psychiatric/Behavioral: Negative. BP 108/62 | Pulse 66 | Temp 36.7 C (98.1 F) | Resp 16 | Ht 5' 6" (1.676 m) | Wt 245 lb (111.1 kg) | LMP 04/01/2018 (Exact Date) | BMI 39.54 kg/m Pregravid BMI: 38.1 Physical Exam Vitals reviewed. Constitutional: She is oriented to person, place, and time. She appears well- developed and well-nourished. See flowsheet Cardiovascular: No peripheral edema present. Pulmonary/Chest: Normal inspiratory effort. Abdominal: Abdomen is soft. Neuro/Psychiatric: She has a normal mood and affect. She is oriented to person, place, and time. Skin: Skin normal. Assessment/Plan 1. Supervision of high risk in third trimester 33w4d Labor precautions, FKC and PIH warnings reviewed. 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 Currently denies any VB, but reports epistaxisandeasy brushing. Pt states had Genetic counseling previously,and declines to have again. 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 Was seen by hematology on 09/06/2018at [facility].ReceivedIV iron transfusion foriron def anemia. Started on regimen of B12 supplementationfor low B12. Sees them again 11/15 and 11/20. Has been seen by anesthesia on 09/19. Is being reviewed weekly in M conference. Getting twice weeklyNSTs and sono every week for placental mass (hydrops eval). Dr. Bishop ([facility] blood bank) is following.Has 44 platelet abs. Dario is trying to find platelets vs plasmapharesis prior to delivery. Waiting to here their recommendation. RCD scheduled for 12/31: 2U platelets, novoseven, TXA, uterotonics, GETA. Has follow up ultrasound scheduled for today - NON-STRESS TEST 3. 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\\ Twice weekly NSTs and weekly hydrops checks. Last growth 11/14 was wnl. Mass stable at 11-12cm. NST reactive today, reviewed with Dr. Lizama. - NON-STRESS TEST 4. Chronic hepatitis C without hepatic coma Nl LFT. Viral load5.4 million IU/ml. States acquired via blood transfusion. Counseled on risk of transmission to fetuspreviously. 5. Multiparity Declines BTL 6. History of section Under GETA, complicated by intra-op bleeding requiring transfusions.Saw anesthesia at [facility] on 09/19.For RCD. Scheduled for 12/31/18 7. Anemia of mother in , antepartum S/p Tx with IV iron at [facility] 09/24 and 11. Last Hb was 10 on 11/01. 8. Rubella non-immune status, antepartum Offer vaccine 9. Obesity (BMI 30-39.9) The patient is asked to make an attempt to improve diet and exercise patterns to aid in medical management of this problem. 10. Back pain affecting in third trimester Advised getting plenty of rest, massage neck and back, and maternity support belt. Apply ice/heat tothe affected area prn. Instructions for regular strength Tylenol 2 tablets every 4 hours as needed, not to exceed 8 tablets in 24 hours. Return to clinic in 4 days. Reviewed patient instructions and provided printed copy. at 33w4d This visit did not involve counseling and coordination that comprised more than 50% of the visit time. documented in this encounter Plan of Treatment Date Type Specialty Care Team Description 11/22/2018 R D Intern Visit Maternal Inga Moore MD [id number] [place] [address] Medicine Alison Reis MD [id number] [place] [address] [facility] 11/26/2018 Routine OB Satellites 2, Ang-Rmchp Nst Visit Ultrasound 11/26/2018 Routine OB Satellites Faculty, Ang Rmchp Visit [facility] 11/29/2018 R D Intern Visit Maternal Medicine 11/29/2018 Routine OB Satellites 1, Ang-Rmchp Nst Visit Ultrasound 11/29/2018 Routine OB Satellites Risk, Visit Wmz-Ytfsl-Im/High 12/06/2018 R D Intern Visit Maternal Medicine 12/13/2018 R D Intern Visit Maternal 2, [facility] Usg Room Medicine 12/20/2018 R D Intern Visit Maternal Medicine 12/27/2018 R D Intern Visit Maternal Medicine 12/31/2018 Hospital Encounter Obstetrics Inga Moore MD [id number] [place], [place] [id number] 12/31/2018 Surgery Surgery Faculty, Ob SECTION [address] [place] [address] 01/03/2019 R D Intern Visit Maternal 3, [facility] Usg Room Medicine Health Maintenance Due Date Last Done Comments PNEUMOCOCCAL 0-64 YEARS COMBINED SERIES (1 1990 of 1 - PPSV23) INFLUENZA VACCINE 12/16/2018 PAP SMEAR 05/29/2021 05/29/2018, 03/30/2004 DTaP,Tdap,and Td Vaccines (2 - Td) 10/15/2028 10/15/2018 documented as of this encounter Implants Implanted Type Area Senior Corporate Strategy Manager Device Shelf Model / Identifier Expiration Date Serial / Lot Nail T2 Ankle Arthrodesis [id number] Left Enterprise F & A #[id number] - S0 NAIL Left: Enterprise 09/14/2021 [id number] / Implanted: Qty: 1 on 03/03/2017 by Dewayne Felix MD at [facility] Ankle 0 / [id number] Pin, Tamanna Self-Drilling Half Alplaus 5mm 150 X 25mm #[id number] PIN Left: Enterprise 08/15/2019 [id number] / Implanted: Qty: 1 on 11/25/2016 by Dewayne Felix MD at [facility] Ankle 0000 / [id number] Hexapod Strut PIN Left: Tamanna 11/25/2026 4935-0-040 / Implanted: Qty: 2 on 11/25/2016 by Dewayne Felix MD at [facility] Ankle 0000 / 000 Pin, Tamanna Self-Drilling Half Alplaus 5mm 150 X 25mm #[id number] PIN Left: Enterprise 07/15/2021 [id number] / Implanted: Qty: 1 on 11/25/2016 by Dewayne Felix MD at [facility] Ankle 0000 / [id number] Pin, Enterprise Self-Drilling Half Alplaus 5mm 150 X 25mm #[id number] PIN Left: Tamanna 04/16/2021 [id number] / Implanted: Qty: 1 on 11/25/2016 by Dewayne Felix MD at [facility] Ankle 0000 / [id number] Pin, Enterprise Self-Drilling Half Alplaus 5mm 150 X 25mm #[id number] PIN Left: Enterprise 04/16/2021 [id number] / Implanted: Qty: 1 on 11/25/2016 by Dewayne Felix MD at [facility] Ankle 0000 / [id number] Pin, Tamanna Self-Drilling Half Alplaus 5mm 150 X 25mm #[id number] PIN Left: Tamanna 07/15/2021 [id number] / Implanted: Qty: 1 on 11/25/2016 by Dewayne Felix MD at [facility] Ankle 0000 / [id number] Wire [place] - Medium 1.5 To 2.0 Mm PIN Left: Tamanna 11/25/2026 4933-1- 002 / Implanted: Qty: 2 on 11/25/2016 by Dewayne Felix MD at [facility] Ankle 0000 / 0000 Wire [place] Adapter Short PIN Left: Tamanna 11/25/2026 4933-1-004 / Implanted: Qty: 2 on 11/25/2016 by Dewayne Felix MD at [facility] Ankle 0000 / 0000 Alplaus Pin Adaptor, Short 6mm # 4933-1-020 - S0000 PIN Left: Enterprise 2019 4933-1-020 / Implanted: Qty: 3 on 11/25/2016 by Dewayne Felix MD at [facility] Ankle 0000 / 0000 Hexapod Strut Medium PIN Left: Enterprise 4935-0-030 / Implanted: Qty: 6 on 11/25/2016 by Dewayne Felix MD at [facility] Ankle 0000 / 0000 Foot Arch RING Left: Enterprise 11/25/2026 4934-6-180 / Implanted: Qty: 1 on 11/25/2016 by Dewayne Felix MD at [facility] Ankle 0000 / 0000 Screw, Tamanna 5 X 30mm Fully Thrded Locking #1896-5030s - S0 SCREW Left: Enterprise 06/14/2021 [id number] / Implanted: Qty: 1 on 03/03/2017 by Dewayne Felix MD at [facility] Ankle 0 / [id number] Screw, Enterprise 5 X 50mm Fully Thrded Locking #1896-5050s - S0 SCREW Left: Enterprise 10/14/2020 [id number] / Implanted: Qty: 1 on 03/03/2017 by Dewayne Felix MD at [facility] Ankle 0 / [id number] Screw Headless Compression [id number] Enterprise #[id number] - S0 SCREW Left: Enterprise 03/03/2027 [id number] / Implanted: Qty: 1 on 03/03/2017 by Dewayne Felix MD at [facility] Ankle 0 / 0 K Wire [id number] WIRE Left: Tamanna 11/25/2026 [id number] / Implanted: Qty: 2 on 11/25/2016 by Dewayne Felix MD at [facility] Ankle 0000 / 0000 Wire With Franklin - Kathryn 2.0 X 450 Mm WIRE Left: Enterprise 11/25/2026 4933-8- 040 / Implanted: Qty: 2 on 11/25/2016 by Dewayne Felix MD at [facility] Ankle 0000 / 0000 [place] External Fixation 1.5mm-2mm Kathryn Short Carbon #4933-1-001 - S0000 Left: Enterprise 11/25/2026 4933-1-001 / Implanted: Qty: 4 on 11/25/2016 by Dewayne Felix MD at [facility] Ankle 0000 / 0000 [place] External Fixation Long Carbon 40mml Threaded #4933-1-021 - S0000 Left: Enterprise 11/25/2026 4933-1-021 / Implanted: Qty: 2 on 11/25/2016 by Dewayne Felix MD at [facility] Ankle 0000 / 0000 Set Ring External Fixation Full 180mm Id Carbon Holex5 F/Foot & Ankle Fixation #4933-5-180 - S0000 Left: Enterprise 11/25/2026 4933-5-180 / Implanted: Qty: 3 on 11/25/2016 by Dewayne Felix MD at [facility] Ankle 0000 / 0000 Ring External Fixation 180mm #4934-4-180 - S0000 Left: Tamanna 2026 4934-4-180 / Implanted: Qty: 1 on 11/25/2016 by Dewayne Felix MD at [facility] Ankle 0000 / 0000 Nut External Fixation 6mm Kathryn Short #4933-1-010 - S0000 Left: Tamanna 4933-1-010 / Implanted: Qty: 25 on 11/25/2016 by Dewayne Felix MD at [facility] Ankle 0000 / 0000 [place] External Fixation 6mm Kathryn Carbon #4933-1-702 - S000 Left: Enterprise 11/25/2026 4933-1-702 / Implanted: Qty: 14 on 11/25/2016 by Dewayne Felix MD at [facility] Ankle 000 / 0000 Washer External Fixation 4mm Kathryn Yellow #4933-1-712 - S0000 Left: Enterprise 11/25/2026 4933-1-712 / Implanted: Qty: 1 on 11/25/2016 by Dewayne Felix MD at [facility] Ankle 0000 / 0000 Screw, Fixos Headless Compression [id number] Tamanna #[id number] - S0 Left: Tamanna 03/03/2027 [id number] / Implanted: Qty: 1 on 03/03/2017 by Dewayne Felix MD at [facility] Ankle 0 / 0 documented as of this encounter Procedures Procedure Name Priority Date/Time Associated Diagnosis Comments NON-STRESS Routine 11/22/2018 9:36 Michael's Results for this TEST AM CDT thrombosthenin procedure are in disorder the results Placental abnormality section. in third trimester POCT URINALYSIS Routine 11/22/2018 8:14 Supervision of high Results for this AM CDT risk in procedure are in third trimester the results section. documented in this encounter Results NON-STRESS TEST (11/22/2018 9:36 AM CDT) Specimen Narrative Performed At [facility] NST reactive, reviewed with Dr. Dl HARDY Performing Organization Address City/State/Zipcode Phone Number PACS POCT URINALYSIS W SPECIFIC GRAVITY (11/22/2018 8:14 AM CDT) POCT U SP GRAV . 1.005 - 1.025 mg/dl POCT PH U . 5 - 8 mg/dl POCT U LEUK EST . Negative - Negative POCT U NIT . Negative - Negative POCT U PROT neg Negative - Negative POCT U GLU neg Negative - Negative POCT U KETONE . Negative - Negative POCT U UROBILI . 0.2 - 1 mg/dl POCT U BILI . Negative - Negative POCT U BLD . Negative - Negative POCT U COLOR POCT U APPEAR Specimen Urine - URINE, CLEAN CATCH documented in this encounter Visit Diagnoses Diagnosis Supervision of high risk in third trimester - Primary Unspecified high-risk 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 Chronic hepatitis C without hepatic coma Multiparity History of section Other postprocedural status Anemia of mother in , antepartum Anemia, antepartum Rubella non-immune status, antepartum Other specified complication, antepartum Obesity (BMI 30-39.9) Obesity, unspecified Back pain affecting in third trimester documented in this encounter Insurance Payer Benefit Plan / Subscriber ID Effective Dates Phone Address Type Group [employer] MEDICAID OF xxxxxxxxx 2018-Present [phone] [address] [place] [id number] [place] [phone] (Home) [place] [address] documented as of this encounter Advance Directives Name Relationship Healthcare Agent Communication Relationship Geovanny Boyd Mother Primary healthcare agent [phone]
--- OUTSIDE RECORDS SUMMARY | 2019-07-09 07:21 | XMS REPORT | Summary of Care ---
:1985 Author Organization [facility] Address [address] [place] [address] Care Team Providers Name Role Phone Orthopedics, Tdc Unavailable Unavailable Rimma Duran Primary Care Provider Reason for Visit Reason Comments MFM Visit Encounter Details Date Type Department Care Team Description 11/26[facility]2018 [facility] [address] [facility] [id number] [place] [address] Glanzmann's thrombosthenin disorder (Primary Dx); Visit [facility], [facility] Supervision of high risk in third trimester; [address] 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; [place], [place] Chronic hepatitis C without hepatic coma; [address] History of section [phone] Allergies Active Allergy Reactions Severity Noted Date Comments Aspirin Unknown - See comments 12/24/2009 Unable to take d/t clotting disorder. Penicillin Unknown - See comments 06/05/2016 documented as of this encounter (statuses as of 11/26/2018) Medications Medication Sig Dispensed Refills Start Date [...] as of this encounter (statuses as of 11/26/2018) Active Problems Problem Noted Date Anemia of [...] as of this encounter (statuses as of 11/26/2018) Resolved Problems Problem Noted Date Resolved Date Threatened 11/22/2018 11/22/2018 Anemia of mother in , antepartum 08/02/2018 10/09/2018 Nausea and vomiting during 06/26/2018 10/09/2018 Headache in 06/26/2018 10/09/2018 Susceptible to varicella (non-immune), currently 05/30/20182018 Overview: Address pp Surgery, elective 02/02/2017 05/29/2018 Ankle fracture, bimalleolar, closed, left, sequela 02/02/2017 10/09/2018 Overview: Added automatically from request for surgery [id number] Cellulitis 12/30/2016 05/29/2018 Infection 12/29/2016 05/29/2018 Bleeding disorder 11/27/2016 05/29/2018 Pain 11/25/2016 05/29/2018 Bleeding 10/19/2016 05/29/2018 Pain, dental 10/11/2016 05/29/2018 Overview: Added automatically from request for surgery [id number] Infection of bone of left ankle 09/09/2016 10/09/2018 Obesity in 09/08/2016 11/19/2018 Unspecified dental caries 08/08/2016 05/29/2018 Tooth pain 08/08/2016 05/29/2018 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 06/05/2016 11/03/2016 Anemia 05/21/2016 05/29/2018 documented as of this encounter (statuses as of 11/26/2018) Immunizations Name Administration Dates Next Due TDAP [...] Sign Reading Time Taken Comments Blood Pressure 116/76 11/26/2018 10:17 AM CDT Pulse 84 11/26/2018 10:17 AM CDT Temperature 37 C (98.6 F) 11/26/2018 10:17 AM CDT Respiratory Rate 16 11/26/2018 10:17 AM CDT Oxygen Saturation - - Inhaled Oxygen Concentration - - Weight 109.8 kg (242 lb 2 oz) 11/26/2018 10:17 AM CDT Height 167.6 cm (5' 6") 11/26/2018 10:17 AM CDT Body Mass Index 39.08 11/26/2018 10:17 AM CDT documented in this encounter Progress Notes Inga Moore MD - 11/26/2018 10:30 AM CDT SEKOU CAMPBELL #: [id number] Date of service: 11/26/2018 12:52 M Return Visit CC: [facility] Visit HPI: Sekou Campbell is a 33 year old, , /White female. Patient 's last menstrual period was 04/01/2018 (exact date). She is 34w1d with an intrauterine . Her estimated date of delivery is 01/06/2019, by Last Menstrual Period. Denies bleeding, LOF, contractions. Feeling activefetal movement. She has no complaints today.. Medications: Outpatient Medications Marked as Taking for the 11/26/18 encounter (Routine Visit) with Faculty, Ad Real Medication Sig ferrous sulfate 325 mg (65 mg iron) tablet Take 1 tablet by mouth 2 (two) times daily. PNV 67-iron ps-folate no.1-dha (VITAFOL ULTRA) 29 mg iron- 1 mg-200 mg Cap Take 1 Each by mouth daily. Labs: I have reviewed the patient's labs. Radiology: I have reviewed the patient's Radiology [...] The patient is not nervous/ anxious. OBJECTIVE: BP 116/76 (BP Location: Right arm, Patient Position: Sitting, BP CUFF SIZE: Adult Large) | Pulse 84 | Temp 37 C (98.6 F) (Oral) | Resp 16 | Ht 5' 6" (1.676 m) | Wt 242 lb 2 oz (109.8 kg) | LMP 04/01/2018 (Exact Date) | BMI 39.08 kg/m 38.1 Physical Exam: Physical Exam Vitals reviewed. 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 Glanzmann's thrombastheniadisorder Patient reports [...] heredity. Was seen by hematology on 09/06/2018at [facility].ReceivedIV iron transfusion foriron def anemia. Started on regimen of B12 supplementationfor low B12. Sees them again 11/15 and 11/20. Has been seen by anesthesia on 09/19. Is being reviewed weekly in MFM conference. Getting twice weeklyNSTs and sono every week for placental mass (hydrops eval). Dr. Bishop ([facility] blood bank) is following.Has 44 platelet abs. Dario is trying to find platelets vs plasmapharesis prior to delivery. Waiting to here their recommendation. RCD scheduled for 12/31: 2U platelets, novoseven, TXA, uterotonics, GETA. Multidisciplinary conference this week to decide about appropriate therapy at and after delivery 2. TwopriorCD Under GETA, complicated by intra-op bleeding requiring transfusions.Saw anesthesia at [facility] on 09/19.For RCD 12/31/18. 3.Multiparity Pt declines BTL. 4.Chronic hepatitis C without hepatic coma. Nl LFT. Viral load5.4 million IU/ml. States acquired via blood transfusion. Counseled on risk of transmission to fetuspreviously. 5. Placental mass Twice weekly NSTs and weekly hydrops checks. Last growth 11/14 was wnl. Mass stable at 11-12cm. 6. RNI, VZVI,A positive,HIV neg, syphilis neg, early 1 hr neg. Allergies: ASA and PCN. ASCUS pap.MEDS: iron, PNV, B12, Vit C, . S/P TDAP 10/15. 7. Anemia S/p Tx with IV iron at [facility] 09/24 and . Last Hb was 10 on 11/01. documented in this encounter Plan of Treatment Date Type Specialty Care Team Description 11/29/2018 Supervisor Slate Splitting Visit Maternal Medicine 11/29/2018 Routine OB Satellites 1, Jerel Nst Visit Ultrasound 11/29/2018 Routine OB Satellites Risk, Visit Lkt-Wrqdr-Xd/High 12/03/2018 Routine OB Satellites 1, Jerel Nst Visit Ultrasound 12/03/2018 Routine OB Satellites Faculty, Ang Rmchp Visit Mfm 12/06/2018 Routine OB Satellites 2, Ang-Rmchp Nst Visit Ultrasound 12/06/2018 Routine OB Satellites Risk, Visit Cdu-Yqses-Np/High 12/06/2018 Supervisor Slate Splitting Visit Maternal Medicine 12/13/2018 Supervisor Slate Splitting Visit Maternal Inga Moore MD [address] [facility] [id number] [place], [place] [address] Medicine 2, [facility] Usg Room 12/20/2018 Supervisor Slate Splitting Visit Maternal Medicine 12/27/2018 Supervisor Slate Splitting Visit Maternal Medicine 12/31/2018 Hospital Encounter Obstetrics Inga Moore MD [address] [id number] [place], [place] [address] 12/31/2018 Surgery Surgery Faculty, Ob SECTION [address] [place] [address] 01/03/2019 Supervisor Slate Splitting Visit Maternal 3, [facility] Usg Room Medicine Health Maintenance Due Date Last Done Comments PNEUMOCOCCAL 0-64 YEARS COMBINED SERIES (1 1990 of 1 - PPSV23) INFLUENZA VACCINE 12/16/2018 PAP SMEAR 05/29/2021 05/29/2018, 03/30/2004 DTaP,Tdap,and Td Vaccines (2 - Td) 10/15/2028 10/15/2018 documented as of this encounter Implants Implanted Type Area Shop Teacher Device Shelf Model / Identifier Expiration Date Serial / Lot Nail T2 Ankle Arthrodesis [id number] Left Tamanna F & A #[id number] - S0 NAIL Left: Tamanna 09/14/2021 [id number] / Implanted: Qty: 1 on 03/03/2017 by Dewayne Feilx MD at [facility] Ankle 0 / [id number] Pin, Tamanna Self-Drilling Half [place] 5mm 150 X 25mm #5017-8-150s PIN Left: Tamanna 08/15/2019 5017-8-150S / Implanted: Qty: 1 on 11/25/2016 by Dewayne Felix MD at [facility] Ankle 0000 / [id number] Hexapod Strut PIN Left: Dante 11/25/2026 4935-0-040 / Implanted: Qty: 2 on 11/25/2016 by Dewayne Felix MD at [facility] Ankle 0000 / 000 Pin, Dante Self-Drilling Half [place] 5mm 150 X 25mm #5017-8-150s PIN Left: Dante 07/15/2021 5017-8-150S / Implanted: Qty: 1 on 11/25/2016 by Dewayne Felix MD at [facility] Ankle 0000 / [id number] Pin, Tamanna Self-Drilling Half [place] 5mm 150 X 25mm #5017-8-150s PIN Left: Dante 04/16/2021 5017-8-150S / Implanted: Qty: 1 on 11/25/2016 by Dewayne Felix MD at [facility] Ankle 0000 / [id number] Pin, Tamanna Self-Drilling Half [place] 5mm 150 X 25mm #5017-8-150s PIN Left: Dante 04/16/2021 5017-8-150S / Implanted: Qty: 1 on 11/25/2016 by Dewayne Felix MD at [facility] Ankle 0000 / [id number] Pin, Dante Self-Drilling Half [place] 5mm 150 X 25mm #5017-8-150s PIN Left: Dante 07/15/2021 5017-8-150S / Implanted: Qty: 1 on 11/25/2016 by Dewayne Felix MD at [facility] Ankle 0000 / [id number] Wire [place] - Medium 1.5 To 2.0 Mm PIN Left: Dante 11/25/2026 4933-1- 002 / Implanted: Qty: 2 on 11/25/2016 by Dewayne Felix MD at [facility] Ankle 0000 / 0000 Wire [place] Adapter Short PIN Left: Tamanna 11/25/2026 4933-1-004 / Implanted: Qty: 2 on 11/25/2016 by Dewayne Felix MD at [facility] Ankle 0000 / 0000 [place] Pin Adaptor, Short 6mm # 4933-1-020 - S0000 PIN Left: Tamanna 2019 4933-1-020 / Implanted: Qty: 3 on 11/25/2016 by Dewayne Felix MD at [facility] Ankle 0000 / 0000 Hexapod Strut Medium PIN Left: Tamanna 4935-0-030 / Implanted: Qty: 6 on 11/25/2016 by Dewayne Felix MD at [facility] Ankle 0000 / 0000 Foot Arch RING Left: Tamanna 11/25/2026 4934-6-180 / Implanted: Qty: 1 on 11/25/2016 by Dewayne Felix MD at [facility] Ankle 0000 / 0000 Screw, Dante 5 X 30mm Fully Thrded Locking #1896-5030s - S0 SCREW Left: Dante 06/14/2021 1896-5030S / Implanted: Qty: 1 on 03/03/2017 by Dewayne Felix MD at [facility] Ankle 0 / [id number] Screw, Dante 5 X 50mm Fully Thrded Locking #1896-5050s - S0 SCREW Left: Dante 10/14/2020 1896-5050S / Implanted: Qty: 1 on 03/03/2017 by Dewayne Felix MD at [facility] Ankle 0 / [id number] Screw Headless Compression [id number] Dante #[id number] - S0 SCREW Left: Tamanna 03/03/2027 [id number] / Implanted: Qty: 1 on 03/03/2017 by Dewayne Felix MD at [facility] Ankle 0 / 0 K Wire [id number] WIRE Left: Tamanna 11/25/2026 5101-2-450 / Implanted: Qty: 2 on 11/25/2016 by Dewayne Felix MD at [facility] Ankle 0000 / 0000 Wire With [place] - Kathryn 2.0 X 450 Mm WIRE Left: Tamanna 11/25/2026 4933-8- 040 / Implanted: Qty: 2 on 11/25/2016 by Dewayne Felix MD at [facility] Ankle 0000 / 0000 [place] External Fixation 1.5mm-2mm Kathryn Short Carbon #4933-1-001 - S0000 Left: Tamanna 11/25/2026 4933-1-001 / Implanted: Qty: 4 on 11/25/2016 by Dewayne Felix MD at [facility] Ankle 0000 / 0000 [place] External Fixation Long Carbon 40mml Threaded #4933-1-021 - S0000 Left: Dante 11/25/2026 4933-1-021 / Implanted: Qty: 2 on 11/25/2016 by Dewayne Felix MD at [facility] Ankle 0000 / 0000 Set Ring External Fixation Full 180mm Id Carbon Holex5 F/Foot & Ankle Fixation #4933-5-180 - S0000 Left: Dante 11/25/2026 4933-5-180 / Implanted: Qty: 3 on 11/25/2016 by Dewayne Felix MD at [facility] Ankle 0000 / 0000 Ring External Fixation 180mm #4934-4-180 - S0000 Left: Dante 2026 4934-4-180 / Implanted: Qty: 1 on 11/25/2016 by Dewayne Felix MD at [facility] Ankle 0000 / 0000 Nut External Fixation 6mm Kathryn Short #4933-1-010 - S0000 Left: Tamanna 4933-1-010 / Implanted: Qty: 25 on 11/25/2016 by Dewayne Felix MD at [facility] Ankle 0000 / 0000 [place] External Fixation 6mm Kathryn Carbon #4933-1-702 - S000 Left: Tamanna 11/25/2026 4933-1-702 / Implanted: Qty: 14 on 11/25/2016 by Dewayne Felix MD at [facility] Ankle 000 / 0000 Washer External Fixation 4mm Kathryn Yellow #4933-1-712 - S0000 Left: Tamanna 11/25/2026 4933-1-712 / Implanted: Qty: 1 on 11/25/2016 by Dewayne Felix MD at [facility] Ankle 0000 / 0000 Screw, Fixos Headless Compression [id number] Tamanna #[id number] - S0 Left: Dante 03/03/2027 [id number] / Implanted: Qty: 1 on 03/03/2017 by Dewayne Felix MD at [facility] Ankle 0 / 0 documented as of this encounter Procedures Procedure Name Priority Date/Time Associated Diagnosis Comments NON-STRESS Routine 11/26/2018 12:49 Placental Results for this TEST PM CDT abnormality in third procedure are in trimester the results section. POCT URINALYSIS Routine 11/26/2018 10:18 Supervision of high Results for this AM CDT risk in procedure are in third trimester the results section. documented in this encounter Results NON-STRESS TEST (11/26/2018 12:49 PM CDT) Specimen Narrative Performed At Reactive and reassuring PACS Performing Organization Address City/State/Zipcode Phone Number PACS POCT URINALYSIS W SPECIFIC GRAVITY (11/26/2018 10:18 AM CDT) POCT U SP GRAV . [...] trimester Chronic hepatitis C without hepatic coma History of section Other postprocedural status documented in this encounter Insurance Payer Benefit Plan / Subscriber ID Effective Dates Phone Address Type Group TMHP MEDICAID OF xxxxxxxxx 2018-Present [phone] [address] [place] [address] [place] [address] documented as of this encounter Advance Directives Name Relationship Healthcare Agent Communication Relationship Geovanny Campbell Mother Primary healthcare agent [email or web address]
--- OUTSIDE RECORDS SUMMARY | 2019-07-09 07:21 | XMS REPORT | Summary of Care ---
:[address] [facility] Address [address] [place] [address] Care Team Providers Name Role Phone Orthopedics, Tdc Unavailable Unavailable Rimma Duran Primary Care Provider Reason for Visit Reason Comments ULTRASOUND (Routine) Status Reason Specialty Diagnoses / Referred By Referred To Procedures Contact Contact Closed OG-OBSTETRICS & Diagnoses Follow up hydrops Ferguson, Mila [facility] Ultrasound-[facility] GYNECOLOGY / Procedures CONSULT MATERNAL MEDICINE ULTRASOUND ULTRASOUND [address] [facility] Maternal [address] [place], [place] [address] [address] [address], [address] Floor Phone: [place], [place] [phone] [address] Fax: Encounter Details Date Type Department Care Team Description 11/22/2018 Fruit Grading Supervisor Visit 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 and possibly affecting fetus, antepartum, single or unspecified fetus; Healthcare-Alison Dodson MD [address] [address] Other placental disorders, third trimester [place] [address], [facility] Usg Room [address] [place] [address] Allergies Active Allergy Reactions Severity Noted Date [...] Overview: Added automatically from request for surgery [id number] Cellulitis 12/30/2016 05/29/2018 Infection 12/29/2016 05/29/2018 Bleeding disorder 11/27/2016 05/29/2018 Pain 11/25/2016 05/29/2018 Bleeding 10/19/2016 05/29/2018 Pain, dental 10/11/2016 05/29/2018 Overview: Added automatically from request for surgery [id number] Infection of bone of left ankle 09/09/2016 [...] Treatment Date Type Specialty Care Team Description 11/26/2018 Routine OB Satellites 2, Jerel Nst Visit Ultrasound 11/26/2018 Routine OB Satellites FacultyAd Visit Mfm 11/29/2018 Fruit Grading Supervisor Visit Maternal Medicine 11/29/2018 Routine OB Satellites 1, Jerel Nst Visit Ultrasound 11/29/2018 Routine OB Satellites Risk, Visit Mqx-Cmgiu-Gu/High 12/06/2018 Fruit Grading Supervisor Visit Maternal Medicine 12/13/2018 Fruit Grading Supervisor Visit Maternal 2, [facility] Mfm Usg Room Medicine 12/20/2018 Fruit Grading Supervisor Visit Maternal Medicine 12/27/2018 Fruit Grading Supervisor Visit Maternal Medicine 12/31/2018 Hospital Encounter Obstetrics Teresa, Inga Chowdary MD [address] [id number] [place], [place] [address] 12/31/2018 Surgery Surgery Faculty, Ob SECTION [address] [place] [address] 01/03/2019 Fruit Grading Supervisor Visit Maternal 3, [facility] Usg Room Medicine Health Maintenance Due Date Last Done Comments PNEUMOCOCCAL 0-64 YEARS COMBINED SERIES (1 1990 of 1 - PPSV23) INFLUENZA VACCINE 12/16/2018 PAP SMEAR 05/29/2021 05/29/2018, 03/30/2004 DTaP,Tdap,and Td Vaccines (2 - Td) 10/15/2028 10/15/2018 documented as of this encounter Implants Implanted Type Area Edge Trimmer Device Shelf Model / Identifier Expiration Date Serial / Lot Nail T2 Ankle Arthrodesis [id number] Left [place] F & A #[id number] - S0 NAIL Left: Tamanna 09/14/2021 1818-1120S / Implanted: Qty: 1 on 03/03/2017 by Dewayne Felix MD at [facility] Ankle 0 / [id number] Pin, [place] Self-Drilling Half [place] 5mm 150 X 25mm #5017-8-150s PIN Left: Tamanna 08/15/2019 5017-8-150S / Implanted: Qty: 1 on 11/25/2016 by Dewayne Felix MD at [facility] Ankle 0000 / [id number] Hexapod Strut PIN Left: Tamanna 11/25/2026 4935-0-040 / Implanted: Qty: 2 on 11/25/2016 by Dewayne Felix MD at [facility] Ankle 0000 / 000 Pin, [place] Self-Drilling Half [place] 5mm 150 X 25mm #5017-8-150s PIN Left: [place] 07/15/2021 5017-8-150S / Implanted: Qty: 1 on 11/25/2016 by Dewayne Felix MD at [facility] Ankle 0000 / [id number] Pin, [place] Self-Drilling Half [place] 5mm 150 X 25mm #5017-8-150s PIN Left: [place]ack 04/16/2021 5017-8-150S / Implanted: Qty: 1 on 11/25/2016 by Dewayne Felix MD at [facility] Ankle 0000 / [id number] Pin, [place] Self-Drilling Half [place] 5mm 150 X 25mm #5017-8-150s PIN Left: [place]ack 04/16/2021 5017-8-150S / Implanted: Qty: 1 on 11/25/2016 by Dewayne Felix MD at [facility] Ankle 0000 / [id number] Pin, [place] Self-Drilling Half [place] 5mm 150 X 25mm #5017-8-150s PIN Left: Tamanna 07/15/2021 5017-8-150S / Implanted: Qty: 1 on 11/25/2016 by Dewayne Felix MD at [facility] Ankle 0000 / [id number] Wire [place] - Medium 1.5 To 2.0 Mm PIN Left: Tamanna 11/25/2026 4933-1- 002 / Implanted: Qty: 2 on 11/25/2016 by Dewayne Felix MD at [facility] Ankle 0000 / 0000 Wire [place] Adapter Short PIN Left: [place]ack 11/25/2026 4933-1-004 / Implanted: Qty: 2 on 11/25/2016 by Dewayne Felix MD at [facility] Ankle 0000 / 0000 [place] Pin Adaptor, Short 6mm # 4933-1-020 - S0000 PIN Left: Tamanna 2019 4933-1-020 / Implanted: Qty: 3 on 11/25/2016 by Dewayne Felix MD at [facility] Ankle 0000 / 0000 Hexapod Strut Medium PIN Left: Tamanna 4935-0-030 / Implanted: Qty: 6 on 11/25/2016 by Dewayne Felix MD at [facility] Ankle 0000 / 0000 Foot Arch RING Left: [place] 11/25/2026 4934-6-180 / Implanted: Qty: 1 on 11/25/2016 by Dewayne Felix MD at [facility] Ankle 0000 / 0000 Screw, Tamanna 5 X 30mm Fully Thrded Locking #1896-5030s - S0 SCREW Left: Tamanna 06/14/2021 1896-5030S / Implanted: Qty: 1 on 03/03/2017 by Dewayne Felix MD at [facility] Ankle 0 / [id number] Screw, Tamanna 5 X 50mm Fully Thrded Locking #1896-5050s - S0 SCREW Left: [place]ack 10/14/2020 1896-5050S / Implanted: Qty: 1 on 03/03/2017 by Dewayne Felix MD at [facility] Ankle 0 / [id number] Screw Headless Compression [id number] [place]ack #[id number] - S0 SCREW Left: Nyack 03/03/2027 [id number] / Implanted: Qty: 1 on 03/03/2017 by Dewayne Felix MD at [facility] Ankle 0 / 0 K Wire [id number] WIRE Left: [place]ack 11/25/2026 5101-2-450 / Implanted: Qty: 2 on 11/25/2016 by Dewayne Fleix MD at [facility] Ankle 0000 / 0000 Wire With [place] - Kathryn 2.0 X 450 Mm WIRE Left: [place]ack 11/25/2026 4933-8- 040 / Implanted: Qty: 2 on 11/25/2016 by Dewayne Felix MD at [facility] Ankle 0000 / 0000 [place] External Fixation 1.5mm-2mm Kathryn Short Carbon #4933-1-001 - S0000 Left: Nyack 11/25/2026 4933-1-001 / Implanted: Qty: 4 on 11/25/2016 by Dewayne Felix MD at [facility] Ankle 0000 / 0000 [place] External Fixation Long Carbon 40mml Threaded #4933-1-021 - S0000 Left: Tamanna 11/25/2026 4933-1-021 / Implanted: Qty: 2 on 11/25/2016 by Dewayne Felix MD at [facility] Ankle 0000 / 0000 Set Ring External Fixation Full 180mm Id Carbon Holex5 F/Foot & Ankle Fixation #4933-5-180 - S0000 Left: [place]ack 11/25/2026 4933-5-180 / Implanted: Qty: 3 on 11/25/2016 by Dewayne Felix MD at [facility] Ankle 0000 / 0000 Ring External Fixation 180mm #4934-4-180 - S0000 Left: [place] 2026 4934-4-180 / Implanted: Qty: 1 on 11/25/2016 by Dewayne Felix MD at [facility] Ankle 0000 / 0000 Nut External Fixation 6mm Kathryn Short #4933-1-010 - S0000 Left: Tamanna 4933-1-010 / Implanted: Qty: 25 on 11/25/2016 by Dewayne Felix MD at [facility] Ankle 0000 / 0000 [place] External Fixation 6mm Kathryn Carbon #4933-1-702 - S000 Left: Tamanna 11/25/2026 4933-1-702 / Implanted: Qty: 14 on 11/25/2016 by Dewayne Felix MD at [facility] Ankle 000 / 0000 Washer External Fixation 4mm Kathryn Yellow #4933-1-712 - S0000 Left: Tamanna 11/25/2026 4933-1-712 / Implanted: Qty: 1 on 11/25/2016 by Dewayne Felix MD at [facility] 0000 / 0000 Screw, Fixos Headless Compression [id number] Tamanna #[id number] - S0 Left: [place] 03/03/2027 [id number] / Implanted: Qty: 1 on 03/03/2017 by Dewayne Felix MD at [facility] 0 / 0 documented as of this encounter Procedures Procedure Name Priority Date/Time Associated Diagnosis Comments SECOND AND THIRD Routine 11/22/2018 11:13 AM TRIMESTER ULTRASOUND CDT documented in this encounter Results SECOND AND THIRD TRIMESTER ULTRASOUND (11/22/2018 11:13 AM CDT) Specimen documented in this encounter Visit Diagnoses Diagnosis 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
--- OUTSIDE RECORDS SUMMARY | 2019-07-09 07:22 | XMS REPORT | Summary of Care ---
:1985 Author Organization [facility] Address [address] [place] [address] Care Team Providers Name Role Phone Orthopedics, Tdc Unavailable Unavailable Rimma Duran Primary Care Provider Reason for Visit Reason Comments ULTRASOUND Encounter Details Date Type Department Care Team Description 11/29/2018 Funeral Pre Arrangement Counselor Visit [facility] Calvin Patel Disorder of placenta in third trimester; Ultrasound- [address] Encounter for screening for hydrops fetalis [address] [facility] [id number] [place] [address] Allergies Active Allergy Reactions Severity Noted Date Comments Aspirin Unknown - See comments 12/24/2009 Unable to take d/t clotting disorder. Penicillin Unknown - See comments 06/05/2016 documented as of this encounter (statuses as of 11/29/2018) Medications Medication Sig Dispensed Refills Start Date [...] as of this encounter (statuses as of 11/29/2018) Active Problems Problem Noted Date Anemia of [...] as of this encounter (statuses as of 11/29/2018) Resolved Problems Problem Noted Date Resolved Date Threatened 11/22/2018 11/22/2018 Anemia of mother in , antepartum 08/02/2018 10/09/2018 Nausea and vomiting during 06/26/2018 10/09/2018 Headache in 06/26/2018 10/09/2018 Susceptible to varicella (non-immune), currently 05/30/20182018 Overview: Address pp Surgery, elective 02/02/2017 05/29/2018 Ankle fracture, bimalleolar, closed, left, sequela 02/02/2017 10/09/2018 Overview: Added automatically from request for surgery [id number] Cellulitis 12/30/2016 05/29/2018 Infection 12/29/2016 05/29/2018 Bleeding disorder 11/27/2016 05/29/2018 Pain 11/25/2016 05/29/2018 Bleeding 10/19/2016 05/29/2018 Pain, dental 10/11/2016 05/29/2018 Overview: Added automatically from request for surgery [id number] Infection of bone of left ankle 09/09/2016 10/09/2018 Obesity in 09/08/2016 11/19/2018 Unspecified dental caries 08/08/2016 05/29/2018 Tooth pain 08/08/2016 05/29/2018 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 06/05/2016 11/03/2016 Anemia 05/21/2016 05/29/2018 documented as of this encounter (statuses as of 11/29/2018) Immunizations Name Administration Dates Next Due TDAP [...] Date Type Specialty Care Team Description 11/29/2018 Routine OB Satellites Calvin Patel [address] [id number] [place], [place] [id number] Visit 1, Ang-Rmchp Nst Ultrasound 11/29/2018 Routine OB Satellites Risk, Visit Wtt-Miegi-Qc/High 12/03/2018 Routine OB Satellites 1, Ang-Rmchp Nst Visit Ultrasound 12/03/2018 Routine OB Satellites Faculty, Ang Rmchp Visit [facility] 12/06/2018 Routine OB Satellites 2, Ang-Rmchp Nst Visit Ultrasound 12/06/2018 Routine OB Satellites Risk, Visit Mwk-Gbpte-Pq/High 12/06/2018 Funeral Pre Arrangement Counselor Visit Maternal Medicine 12/13/2018 Funeral Pre Arrangement Counselor Visit Maternal Inga Moore MD [address] [id number] [place], [place] [id number] Medicine 2, [facility] Room 12/20/2018 Funeral Pre Arrangement Counselor Visit Maternal Medicine 12/27/2018 Funeral Pre Arrangement Counselor Visit Maternal Medicine 12/31/2018 Hospital Encounter Obstetrics Inga Moore MD [address] [id number] [place], [place] [id number] 12/31/2018 Surgery Surgery Faculty, Ob SECTION [address] [place] [address], [place] [address] 01/03/2019 Funeral Pre Arrangement Counselor Visit Maternal 3, [facility] Medicine Health Maintenance Due Date Last Done Comments PNEUMOCOCCAL 0-64 YEARS COMBINED SERIES (1 1990 of 1 - PPSV23) INFLUENZA VACCINE (#1) 2018 PAP SMEAR 05/29/2021 05/29/2018, 03/30/2004 DTaP,Tdap,and Td Vaccines (2 - Td) 10/15/2028 10/15/2018 documented as of this encounter Implants Implanted Type Area Financial Intern Device Shelf Model / Identifier Expiration Date Serial / Lot Nail T2 Ankle Arthrodesis [id number] Left Tamanna F & A #[id number] - S0 NAIL Left: [place] 09/14/2021 [id number] / Implanted: Qty: 1 on 03/03/2017 by Dewayne Felix MD at [facility] Ankle 0 / [id number] Pin, [place] Self-Drilling Half [place] 5mm 150 X 25mm #5017-8-150s PIN Left: [place] 08/15/2019 5017-8-150S / Implanted: Qty: 1 on 11/25/2016 by Dewayne Felix MD at [facility] Ankle 0000 / [id number] Hexapod Strut PIN Left: [place] 11/25/2026 4935-0-040 / Implanted: Qty: 2 on 11/25/2016 by Dewayne Felix MD at [facility] Ankle 0000 / 000 Pin, [place] Self-Drilling Half [place] 5mm 150 X 25mm #5017-8-150s PIN Left: Tamanna 07/15/2021 5017-8-150S / Implanted: Qty: 1 on 11/25/2016 by Dewayne Felix MD at [facility] Ankle 0000 / [id number] Pin, [place] Self-Drilling Half [place] 5mm 150 X 25mm #5017-8-150s PIN Left: Tamanna 04/16/2021 5017-8-150S / Implanted: Qty: 1 on 11/25/2016 by Dewayne Felix MD at [facility] Ankle 0000 / [id number] Pin, [place] Self-Drilling Half [place] 5mm 150 X 25mm #5017-8-150s PIN Left: [place] 04/16/2021 5017-8-150S / Implanted: Qty: 1 on 11/25/2016 by Dewayne Felix MD at [facility] Ankle 0000 / [id number] Pin, [place] Self-Drilling Half [place] 5mm 150 X 25mm #5017-8-150s PIN Left: Tamanna 07/15/2021 5017-8-150S / Implanted: Qty: 1 on 11/25/2016 by Dewayne Felix MD at [facility] Ankle 0000 / [id number] Wire Rarden - Medium 1.5 To 2.0 Mm PIN Left: Tamanna 11/25/2026 4933-1- 002 / Implanted: Qty: 2 on 11/25/2016 by Dewayne Felix MD at [facility] Ankle 0000 / 0000 Wire Rarden Adapter Short PIN Left: [place]anna 11/25/2026 4933-1-004 / Implanted: Qty: 2 on 11/25/2016 by Dewayne Felix MD at [facility] Ankle 0000 / 0000 [place] Pin Adaptor, Short 6mm # 4933-1-020 - S0000 PIN Left: [place] 2019 4933-1-020 / Implanted: Qty: 3 on 11/25/2016 by Dewayne Felix MD at [facility] Ankle 0000 / 0000 Hexapod Strut Medium PIN Left: [place] 4935-0-030 / Implanted: Qty: 6 on 11/25/2016 by Dewayne Felix MD at [facility] Ankle 0000 / 0000 Foot Arch RING Left: [place] 11/25/2026 4934-6-180 / Implanted: Qty: 1 on 11/25/2016 by Dewayne Felix MD at [facility] Ankle 0000 / 0000 Screw, [place] 5 X 30mm Fully Thrded Locking #1896-5030s - S0 SCREW Left: [place] 06/14/2021 1896-5030S / Implanted: Qty: 1 on 03/03/2017 by Dewayne Felix MD at [facility] Ankle 0 / [id number] Screw, [place] 5 X 50mm Fully Thrded Locking #1896-5050s - S0 SCREW Left: [place] 10/14/2020 1896-5050S / Implanted: Qty: 1 on 03/03/2017 by Dewayne Felix MD at [facility] Ankle 0 / [id number] Screw Headless Compression [id number] [place] #[id number] - S0 SCREW Left: Tamanna 03/03/2027 [id number] / Implanted: Qty: 1 on 03/03/2017 by Dewayne Felix MD at [facility] Ankle 0 / 0 K Wire [id number] WIRE Left: [place] 11/25/2026 5101-2-450 / Implanted: Qty: 2 on 11/25/2016 by Dewayne Felix MD at [facility] Ankle 0000 / 0000 Wire With [place] - Kathryn 2.0 X 450 Mm WIRE Left: Tamanna 11/25/2026 4933-8- 040 / Implanted: Qty: 2 on 11/25/2016 by Dewayne Felix MD at [facility] Ankle 0000 / 0000 Rarden External Fixation 1.5mm-2mm Kathryn Short Carbon #4933-1-001 - S0000 Left: [place] 11/25/2026 4933-1-001 / Implanted: Qty: 4 on 11/25/2016 by Dewayne Felix MD at [facility] Ankle 0000 / 0000 Rarden External Fixation Long Carbon 40mml Threaded #4933-1-021 - S0000 Left: [place]anna 11/25/2026 4933-1-021 / Implanted: Qty: 2 on 11/25/2016 by Dewayne Felix MD at [facility] Ankle 0000 / 0000 Set Ring External Fixation Full 180mm Id Carbon Holex5 F/Foot & Ankle Fixation #4933-5-180 - S0000 Left: [place] 11/25/2026 4933-5-180 / Implanted: Qty: 3 on 11/25/2016 by Dewayne Felix MD at [facility] Ankle 0000 / 0000 Ring External Fixation 180mm #4934-4-180 - S0000 Left: [place] 2026 4934-4-180 / Implanted: Qty: 1 on 11/25/2016 by Dewayne Felix MD at [facility] Ankle 0000 / 0000 Nut External Fixation 6mm Kathryn Short #4933-1-010 - S0000 Left: Tamanna 4933-1-010 / Implanted: Qty: 25 on 11/25/2016 by Dewayne Felix MD at [facility] Ankle 0000 / 0000 Rarden External Fixation 6mm Kathryn Carbon #4933-1-702 - S000 Left: [place] 11/25/2026 4933-1-702 / Implanted: Qty: 14 on 11/25/2016 by Dewayne Felix MD at [facility] Ankle 000 / 0000 Washer External Fixation 4mm Kathryn Yellow #4933-1-712 - S0000 Left: Tamanna 11/25/2026 4933-1-712 / Implanted: Qty: 1 on 11/25/2016 by Dewayne Felix MD at [facility] Ankle 0000 / 0000 Screw, Fixos Headless Compression [id number] Tamanna #[id number] - S0 Left: [place] 03/03/2027 [id number] / Implanted: Qty: 1 on 03/03/2017 by Dewayne Felix MD at [facility] Ankle 0 / 0 documented as of this encounter Results Not on filedocumented in this encounter Visit Diagnoses Diagnosis Disorder of placenta in third trimester Other placental conditions affecting management of mother, antepartum Encounter for screening for hydrops fetalis documented in this encounter Insurance Payer Benefit Plan / Subscriber ID Effective Dates Phone Address Type Group TMHP MEDICAID OF xxxxxxxxx 2018-Present [phone] [address] Medicaid [address] [address] documented as of this encounter Advance Directives Name Relationship Healthcare Agent Communication Relationship Geovanny Boyd Mother Primary healthcare agent [email or web address]
--- OUTSIDE RECORDS SUMMARY | 2019-07-09 07:22 | XMS REPORT | Summary of Care ---
:1985 Author Organization [facility] Address [address] [place] [address] Care Team Providers Name Role Phone Orthopedics, Tdc Unavailable Unavailable Rimma Duran Primary Care Provider Reason for Visit Reason Comments Care Encounter Details Date Type Department Care Team Description 11/29/2018 [facility] [address] [place] [address] 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 (Primary Dx); Visit Shan SchmittRmchp-Np/High Supervision of high risk in third trimester; [address] Glanzmann's thrombosthenin disorder; [place], [place] Chronic hepatitis C without hepatic coma; [address] Multiparity; [phone] Anemia of mother in , antepartum; Rubella non-immune status, antepartum Allergies Active Allergy Reactions Severity Noted [...] Overview: Added automatically from request for surgery [id number] Cellulitis 12/30/2016 05/29/2018 Infection 12/29/2016 05/29/2018 Bleeding disorder 11/27/2016 05/29/2018 Pain 11/25/2016 05/29/2018 Bleeding 10/19/2016 05/29/2018 Pain, dental 10/11/2016 05/29/2018 Overview: Added automatically from request for surgery [id number] Infection of bone of left ankle 09/09/2016 [...] Sign Reading Time Taken Comments Blood Pressure 136/80 11/29/2018 12:58 PM CDT Pulse 76 11/29/2018 12:58 PM CDT Temperature 37.1 C (98.7 F) 11/29/2018 12:58 PM CDT Respiratory Rate 16 11/29/2018 12:58 PM CDT Oxygen Saturation - - Inhaled Oxygen Concentration - - Weight 111.3 kg (245 lb 5 oz) 11/29/2018 12:58 PM CDT Height 167.6 cm (5' 6") 11/29/2018 12:58 PM CDT Body Mass Index 39.59 11/29/2018 12:58 PM CDT documented in this encounter Progress Notes Mila Ferguson - 11/29/2018 1:00 PM CDT Chief complaint: Chief Complaint Patient presents with Care HPI Bri Boyd is a 33 year old HF who is 34w4d with IUP. Her Estimated Date of Delivery: 01/06/19 by LMP. Denies headache, n/v, visual changes , sob, cp, ruq pain, bleeding,lof and ctxs. Has +FM. 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[facility], requires multiple platelets and PRBC transfusions, [...] Surgeon: Dewayne Felix MD; [facility]: [facility] SURGICAL EXTRACTION - ERUPTED TEETH 10/19/2016 TIBIOCALCANEAL ARTHRODESIS Left 03/03/2017 Surgeon: Dewayne Felix MD; Location: [facility] [place] TOOTH EXTRACTION TOOTH EXTRACTION N/A 10/19/2016 Surgeon: Jus Tinoco; Location: [facility] Social History Socioeconomic History Marital status: Single Spouse name: Not on file Number of children: Not on file Years of education: Not on file Highest education level: Not on file Occupational History 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 Review of Systems See HPI BP 136/80 (BP Location: Right arm, Patient Position: Sitting, BP CUFF SIZE: Adult Medium) | Pulse 76 | Temp 37.1 C (98.7 F) (Oral) | Resp 16 | Ht 5 ' 6" (1.676 m) | Wt 245 lb 5 oz (111.3 kg) |LMP 04/01/2018 (Exact Date) | BMI 39.59 kg/m Pregravid BMI: 38.1 Physical Exam CONSTITUTIONAL: no apparent distress, appearing age-appropriate. GASTROINTESTINAL: abdomen soft, nontender, . NEUROLOGICAL/PSYCHIATRIC: alert, awake, and oriented x 3. Normal mood and affect. EXTREMITIES: No calf tenderness bilaterally.no pitting edema bilaterally. 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 Was seen by hematology on 09/06/2018at [facility].ReceivedIV iron transfusion foriron def anemia. Started on regimen of B12 supplementationfor low B12. Sees them again 11/15 and 11/20. Has been seen by anesthesia on 09/19. Is being reviewed weekly in MFM conference. Getting twice weeklyNSTs and sono every week for placental mass (hydrops eval). Dr. Bishop ([facility] blood bank) is following.Has 44 platelet abs. Dario is trying to find platelets vs plasmapharesis prior to delivery. Waiting to here their recommendation. RCD scheduled for12/31: 2U platelets, novoseven, TXA, uterotonics, GETA. Multidisciplinary conference this week to decide about appropriate therapy at and after delivery 2. TwopriorCD Under GETA, complicated by intra-op bleeding requiring transfusions.Saw anesthesia at [facility] on 09/19.For RCD 12/31/18. 3.Multiparity Pt declines BTL. 4.Chronic hepatitis C without hepatic coma. Nl LFT. Viral load5.4 million IU/ml. States acquired via blood transfusion. Counseled on risk of transmission to fetuspreviously. 5. Placental mass Twice weekly NSTs and weekly hydrops checks. Last growth 11/14 was wnl. Mass stable at 11-12cm. Usg today with nml JILLIAN/nml doppler NST today reactive and reassuring 6. RNI, VZVI,A positive,HIV neg, syphilis neg, early 1 hr neg. Allergies: ASA and PCN. ASCUS pap.MEDS: iron, PNV, B12, Vit C, .S/P TDAP 10/15. 7. Anemia S/p Tx with IV iron at [facility]/24 and 11. Last Hb was 10 on 11/01. Has f/u with Hematology next week PTL warnings/kick count instructions given RTC 2xwkly This visit did not involve counseling and coordination that comprised more than 50% of the visit time. documented in this encounter Plan of Treatment Date Type Specialty Care Team Description 11/29/2018 Ancillary Procedure OB Satellites Mila Ferguson Arrived [address] [place], [place] [address] 12/03/2018 Routine OB Satellites 1, Liliap Nst Visit Ultrasound 12/03/2018 Routine OB Satellites Faculty, Ad Samson Visit Mfm 12/06/2018 Routine OB Satellites 2, Jerel Nst Visit Ultrasound 12/06/2018 Routine OB Satellites Risk, Visit Dhx-Xygpc-Kc/High 12/06/2018 Prepared Foods Supervisor Visit Maternal Medicine 12/13/2018 Prepared Foods Supervisor Visit Maternal TeresaInga MD [address] MT[address] [place], [place] [phone] Medicine 2, [facility] Room 12/20/2018 Prepared Foods Supervisor Visit Maternal Medicine 12/27/2018 Prepared Foods Supervisor Visit Maternal Medicine 12/31/2018 Hospital Encounter Obstetrics Inga Moore MD [address] [id number] [place] [address] [phone] 12/31/2018 Surgery Surgery Faculty, Ob SECTION [address] [place] [address] 01/03/2019 Prepared Foods Supervisor Visit Maternal 3, [facility] Room Medicine Health Maintenance Due Date Last Done Comments PNEUMOCOCCAL 0-64 YEARS COMBINED SERIES (1 1990 of 1 - PPSV23) INFLUENZA VACCINE (#1) 2018 PAP SMEAR 05/29/2021 05/29/2018, 03/30/2004 DTaP,Tdap,and Td Vaccines (2 - Td) 10/15/2028 10/15/2018 documented as of this encounter Implants Implanted Type Area Early Childhood Education Specialist Device Shelf Model / Identifier Expiration Date Serial / Lot Nail T2 Ankle Arthrodesis [id number] Left Tamanna F & A #[id number] - S0 NAIL Left: [place] 09/14/2021 [id number] / Implanted: Qty: 1 on 03/03/2017 by Dewayne Felix MD at [facility] Ankle 0 / [id number] Pin, [place] Self-Drilling Half [place] 5mm 150 X 25mm #5017-8-150s PIN Left: Tamanna 08/15/2019 5017-8-150S / Implanted: Qty: 1 on 11/25/2016 by Dewayne Felix MD at [facility] Ankle 0000 / [id number] Hexapod Strut PIN Left: [place] 11/25/2026 4935-0-040 / Implanted: Qty: 2 on 11/25/2016 by Dewayne Felix MD at [facility] Ankle 0000 / 000 Pin, [place] Self-Drilling [place] 5mm 150 X 25mm #5017-8-150s PIN Left: [place]anna 07/15/2021 5017-8-150S / Implanted: Qty: 1 on 11/25/2016 by Dewayne Felix MD at [facility] Ankle 0000 / [id number] Pin, [place] Self-Drilling [place] 5mm 150 X 25mm #5017-8-150s PIN Left: [place] 04/16/2021 5017-8-150S / Implanted: Qty: 1 on 11/25/2016 by Dewayne Felix MD at [facility] Ankle 0000 / [id number] Pin, [place] Self-Drilling [place] 5mm 150 X 25mm #5017-8-150s PIN Left: [place] 04/16/2021 5017-8-150S / Implanted: Qty: 1 on 11/25/2016 by Dewayne Felix MD at [facility] Ankle 0000 / [id number] Pin, [place] Self-Drilling [place] 5mm 150 X 25mm #5017-8-150s PIN Left: [place] 07/15/2021 5017-8-150S / Implanted: Qty: 1 on 11/25/2016 by Dewayne Felix MD at [facility] Ankle 0000 / [id number] Wire [place] - Medium 1.5 To 2.0 Mm PIN Left: Tamanna 11/25/2026 4933-1- 002 / Implanted: Qty: 2 on 11/25/2016 by Dewayne Felix MD at [facility] Ankle 0000 / 0000 Wire [place] Adapter Short PIN Left: Tamanna 11/25/2026 4933-1-004 / Implanted: Qty: 2 on 11/25/2016 by Dewayne Felix MD at [facility] Ankle 0000 / 0000 [place] Pin Adaptor, Short 6mm # 4933-1-020 - S0000 PIN Left: Tamanna 2019 4933-1-020 / Implanted: Qty: 3 on 11/25/2016 by Dewayne Felix MD at [facility] Ankle 0000 / 0000 Hexapod Strut Medium PIN Left: [place] 4935-0-030 / Implanted: Qty: 6 on 11/25/2016 by Dewayne Felix MD at [facility] Ankle 0000 / 0000 Foot Arch RING Left: [place] 11/25/2026 4934-6-180 / Implanted: Qty: 1 on 11/25/2016 by Dewayne Felix MD at [facility] Ankle 0000 / 0000 Screw, [place] 5 X 30mm Fully Thrded Locking #1896-5030s - S0 SCREW Left: Tamanna 06/14/2021 1896-5030S / Implanted: Qty: 1 on 03/03/2017 by Dewayne Felix MD at [facility] Ankle 0 / [id number] Screw, [place] 5 X 50mm Fully Thrded Locking #1896-5050s - S0 SCREW Left: [place]anna 10/14/2020 1896-5050S / Implanted: Qty: 1 on 03/03/2017 by Dewayne Felix MD at [facility] Ankle 0 / [id number] Screw Headless Compression [id number] [place] #[id number] - S0 SCREW Left: [place]anna 03/03/2027 [id number] / Implanted: Qty: 1 on 03/03/2017 by Dewayne Felix MD at [facility] Ankle 0 / 0 K Wire [id number] WIRE Left: [place] 11/25/2026 5101-2-450 / Implanted: Qty: 2 on 11/25/2016 by Dewayne Felix MD at [facility] Ankle 0000 / 0000 Wire With [place] - Kathryn 2.0 X 450 Mm WIRE Left: Tamanna 11/25/2026 4933-8- 040 / Implanted: Qty: 2 on 11/25/2016 by Dewayne Felix MD at [facility] Ankle 0000 / 0000 [place] External Fixation 1.5mm-2mm [place] Short Carbon #4933-1-001 - S0000 Left: Tamanna 11/25/2026 4933-1-001 / Implanted: Qty: 4 on 11/25/2016 by Dewayne Felix MD at [facility] Ankle 0000 / 0000 [place] External Fixation Long [place] 40mml Threaded #4933-1-021 - S0000 Left: [place]anna 11/25/2026 4933-1-021 / Implanted: Qty: 2 on 11/25/2016 by Dewayne Felix MD at [facility] Ankle 0000 / 0000 Set Ring External Fixation Full 180mm Id Carbon Holex5 F/Foot & Ankle Fixation #4933-5-180 - S0000 Left: [place] 11/25/2026 4933-5-180 / Implanted: Qty: 3 on 11/25/2016 by Deawyne Felix MD at [facility] Ankle 0000 / 0000 Ring External Fixation 180mm #4934-4-180 - S0000 Left: Tamanna 2026 4934-4-180 / Implanted: Qty: 1 on 11/25/2016 by Dewayne Felix MD at [facility] Ankle 0000 / 0000 Nut External Fixation 6mm [place] Short #4933-1-010 - S0000 Left: [place] 4933-1-010 / Implanted: Qty: 25 on 11/25/2016 by Dewayne Felix MD at [facility] Ankle 0000 / 0000 Hardy External Fixation 6mm Kathryn Carbon #4933-1-702 - S000 Left: [place] 11/25/2026 4933-1-702 / Implanted: Qty: 14 on 11/25/2016 by Dewayne Felix MD at [facility] Ankle 000 / 0000 Washer External Fixation 4mm Kathryn Yellow #4933-1-712 - S0000 Left: [place] 11/25/2026 4933-1-712 / Implanted: Qty: 1 on 11/25/2016 by Dewayne Felix MD at [facility] Ankle 0000 / 0000 Screw, Fixos Headless Compression [id number] [place] #[id number] - S0 Left: [place] 03/03/2027 093056 / Implanted: Qty: 1 on 03/03/2017 by Dewayne Felix MD at [facility] 0 / 0 documented as of this encounter Procedures Procedure Name Priority Date/Time Associated Diagnosis Comments NON-STRESS Routine 11/29/2018 1:37 Michael's Results for this TEST PM CDT thrombosthenin procedure are in disorder the results Placental abnormality section. in third trimester POCT URINALYSIS Routine 11/29/2018 12:59 Supervision of high Results for this PM CDT risk in procedure are in third trimester the results section. documented in this encounter Results NON-STRESS TEST (11/29/2018 1:37 PM CDT) Specimen Narrative Performed At Cat I PACS Performing Organization Address City/State/Zipcode Phone Number PACS POCT URINALYSIS W SPECIFIC GRAVITY (11/29/2018 12:59 PM CDT) POCT U SP GRAV . 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 Chronic hepatitis C without hepatic coma Multiparity Anemia of mother in , antepartum Anemia, antepartum Rubella non-immune status, antepartum Other specified complication, antepartum documented in this encounter Insurance Payer Benefit Plan / Subscriber ID Effective Dates Phone Address Type Group TMHP MEDICAID OF xxxxxxxxx 2018-Present [phone] [address] Medicaid [place] [id number] [place] [phone] documented as of this encounter Advance Directives Name Relationship Healthcare Agent Communication Relationship Geovanny Boyd Mother Primary healthcare agent [email or web address]
--- OUTSIDE RECORDS SUMMARY | 2019-07-09 07:23 | XMS REPORT | Summary of Care ---
:1985 Author Organization [facility] Address [address] [place] [address] Care Team Providers Name Role Phone Orthopedics, Tdc Unavailable Unavailable Rimma Duran Primary Care Provider Reason for Visit Reason Comments Care Encounter Details Date Type Department Care Team Description 11/29/2018 [facility] Ferguson [address] [place] [address] 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 (Primary Dx); Visit Shan SchmittRmchp-Np/High Supervision of high risk in third trimester; [address] Glanzmann's thrombosthenin disorder; [place], [place] Chronic hepatitis C without hepatic coma; [address] Multiparity; [phone] Anemia of mother in , antepartum; Rubella [...] Overview: Added automatically from request for surgery [id number] Cellulitis 12/30/2016 05/29/2018 Infection 12/29/2016 05/29/2018 Bleeding disorder 11/27/2016 05/29/2018 Pain 11/25/2016 05/29/2018 Bleeding 10/19/2016 05/29/2018 Pain, dental 10/11/2016 05/29/2018 Overview: Added automatically from request for surgery [id number] Infection of bone of left ankle 09/09/2016 [...] IF SURGERY- consult Heme; 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 Dr. Bishop ([facility] blood bank) is following.Has 44 platelet abs. Dario is trying to find platelets vs plasmapharesis prior to delivery. Waiting to here their recommendation. RCD scheduled for12/31: 2U platelets, novoseven, TXA, uterotonics, GETA. Multidisciplinary conference this week to decide about appropriate therapy at and after delivery 2. TwopriorCD Under GETA, complicated by intra-op bleeding requiring transfusions.Saw anesthesia at [facility] on 09/19.For RCD 12/31/18. 3.Multiparity Pt declines [...] Treatment Date Type Specialty Care Team Description 12/03/2018 Routine OB Satellites 1, Ang-Rmchp Nst Visit Ultrasound 12/03/2018 Routine OB Satellites Faculty, Ad Rmchp Visit [facility] 12/06/2018 Routine OB Satellites 2, Ang-Rmchp Nst Visit Ultrasound 12/06/2018 Routine OB Satellites Risk, Visit Tpe-Swkjw-Vi/High 12/06/2018 Hockey Scout Visit Maternal Medicine 12/10/2018 Routine OB Satellites 1, Ang-Rmchp Nst Visit Ultrasound 12/10/2018 Routine OB Satellites Faculty, Ang Rmchp Visit [facility] 12/13/2018 Routine OB Satellites 1, Ang-Rmchp Nst Visit Ultrasound 12/13/2018 Routine OB Satellites Risk, Visit Xat-Youad-Ew/High 12/13/2018 Hockey Scout Visit Maternal TeresaInga MD [address] [place] [address] [phone] Medicine 2, [facility] Usg Room 12/20/2018 Hockey Scout Visit Maternal Medicine 12/27/2018 Hockey Scout Visit Maternal Medicine 12/31/2018 Hospital Encounter Obstetrics Teresa, Inga Chowdary MD [id number] [place] [address] [phone] 12/31/2018 Surgery Surgery Faculty, Ob SECTION [address] [place] [address] 01/03/2019 Hockey Scout Visit Maternal 3, [facility] Usg Room Medicine Health Maintenance Due Date Last Done Comments PNEUMOCOCCAL 0-64 YEARS COMBINED SERIES (1 1990 of 1 - PPSV23) INFLUENZA VACCINE (#1) 2018 PAP SMEAR 05/29/2021 05/29/2018, 03/30/2004 DTaP,Tdap,and Td Vaccines (2 - Td) 10/15/2028 10/15/2018 documented as of this encounter Implants Implanted Type Area Financial Analyst Accountant Device Shelf Model / Identifier Expiration Date Serial / Lot Nail T2 Ankle Arthrodesis [id number] Left Tamanna F & A #[id number] - S0 NAIL Left: Tamanna 09/14/2021 [id number] / Implanted: Qty: 1 on 03/03/2017 by Dewayne Felix MD at [facility] Ankle 0 / [id number] Pin, Bruin Self-Drilling [place] 5mm 150 X 25mm #5017-8-150s PIN Left: Bruin 08/15/2019 5017-8-150S / Implanted: Qty: 1 on 11/25/2016 by Dewayne Felix MD at [facility] Ankle 0000 / [id number] Hexapod Strut PIN Left: Bruin 11/25/2026 4935-0-040 / Implanted: Qty: 2 on 11/25/2016 by Dewayne Felix MD at [facility] Ankle 0000 / 000 Pin, Tamanna Self-Drilling [place] 5mm 150 X 25mm #5017-8-150s PIN Left: Tamanna 07/15/2021 5017-8-150S / Implanted: Qty: 1 on 11/25/2016 by Dewayne Felix MD at [facility] Ankle 0000 / [id number] Pin, [place] Self-Drilling [place] 5mm 150 X 25mm #5017-8-150s PIN Left: Bruin 04/16/2021 5017-8-150S / Implanted: Qty: 1 on 11/25/2016 by Dewayne Felix MD at [facility] Ankle 0000 / [id number] Pin, Tamanna Self-Drilling [place] 5mm 150 X 25mm #5017-8-150s PIN Left: Tamanna 04/16/2021 5017-8-150S / Implanted: Qty: 1 on 11/25/2016 by Dewayne Felix MD at [facility] Ankle 0000 / [id number] Pin, [place] Self-Drilling [place] 5mm 150 X 25mm #5017-8-150s PIN Left: Bruin 07/15/2021 5017-8-150S / Implanted: Qty: 1 on 11/25/2016 by Dewayne Felix MD at [facility] Ankle 0000 / [id number] Wire [place] - Medium 1.5 To 2.0 Mm PIN Left: Bruin 11/25/2026 4933-1- 002 / Implanted: Qty: 2 on 11/25/2016 by Dewayne Felix MD at [facility] Ankle 0000 / 0000 Wire [place] Adapter Short PIN Left: Tamanna 11/25/2026 4933-1-004 / Implanted: Qty: 2 on 11/25/2016 by Dewayne Felix MD at [facility] Ankle 0000 / 0000 [place] Pin Adaptor, Short 6mm # 4933-1-020 - S0000 PIN Left: Tamanna 2019 4933-1-020 / Implanted: Qty: 3 on 11/25/2016 by Dewayne Felix MD at [facility] Ankle 0000 / 0000 Hexapod Strut Medium PIN Left: Tamanna 4935-0-030 / Implanted: Qty: 6 on 11/25/2016 by Dewayne Felix MD at [facility] Ankle 0000 / 0000 Foot Arch RING Left: Bruin 11/25/2026 4934-6-180 / Implanted: Qty: 1 on 11/25/2016 by Dewayne Felix MD at [facility] Ankle 0000 / 0000 Screw, Tamanna 5 X 30mm Fully Thrded Locking #1896-5030s - S0 SCREW Left: Tamanna 06/14/2021 1896-5030S / Implanted: Qty: 1 on 03/03/2017 by Dewayne Felix MD at [facility] Ankle 0 / [id number] Screw, Tamanna 5 X 50mm Fully Thrded Locking #1896-5050s - S0 SCREW Left: Bruin 10/14/2020 1896-5050S / Implanted: Qty: 1 on 03/03/2017 by Dewayne Felix MD at [facility] Ankle 0 / [id number] Screw Headless Compression [id number] Bruin #[id number] - S0 SCREW Left: Bruin 03/03/2027 [id number] / Implanted: Qty: 1 on 03/03/2017 by Dewayne Felix MD at [facility] Ankle 0 / 0 K Wire [id number] WIRE Left: Bruin 11/25/2026 5101-2-450 / Implanted: Qty: 2 on 11/25/2016 by Dewayne Felix MD at [facility] Ankle 0000 / 0000 Wire With [place] - Kathryn 2.0 X 450 Mm WIRE Left: Bruin 11/25/2026 4933-8- 040 / Implanted: Qty: 2 on 11/25/2016 by Dewayne Felix MD at [facility] Ankle 0000 / 0000 [place] External Fixation 1.5mm-2mm Kathryn Short Carbon #4933-1-001 - S0000 Left: Tamanna 11/25/2026 4933-1-001 / Implanted: Qty: 4 on 11/25/2016 by Dewayne Felix MD at [facility] Ankle 0000 / 0000 [place] External Fixation Long Carbon 40mml Threaded #4933-1-021 - S0000 Left: Bruin 11/25/2026 4933-1-021 / Implanted: Qty: 2 on 11/25/2016 by Dewayne Felix MD at [facility] Ankle 0000 / 0000 Set Ring External Fixation Full 180mm Id Carbon Holex5 F/Foot & Ankle Fixation #4933-5-180 - S0000 Left: Tamanna 11/25/2026 4933-5-180 / Implanted: Qty: 3 on 11/25/2016 by Dewayne Felix MD at [facility] Ankle 0000 / 0000 Ring External Fixation 180mm #4934-4-180 - S0000 Left: Bruin 2026 4934-4-180 / Implanted: Qty: 1 on 11/25/2016 by Dewayne Felix MD at [facility] Ankle 0000 / 0000 Nut External Fixation 6mm Kathryn Short #4933-1-010 - S0000 Left: Tamanna 4933-1-010 / Implanted: Qty: 25 on 11/25/2016 by Dewayne Felix MD at [facility] Ankle 0000 / 0000 [place] External Fixation 6mm Kathryn Carbon #4933-1-702 - S000 Left: Bruin 11/25/2026 4933-1-702 / Implanted: Qty: 14 on 11/25/2016 by Dewayne Felix MD at [facility] Ankle 000 / 0000 Washer External Fixation 4mm Kathryn Yellow #4933-1-712 - S0000 Left: Bruin 11/25/2026 4933-1-712 / Implanted: Qty: 1 on 11/25/2016 by Dewayne Felix MD at [facility] Ankle 0000 / 0000 Screw, Fixos Headless Compression [id number] Tamanna #[id number] - S0 Left: Tamanna 03/03/2027 [id number] / Implanted: Qty: 1 on 03/03/2017 by Dewayne Felix MD at [facility] Ankle 0 / 0 documented as of this encounter Procedures Procedure Name Priority Date/Time Associated Diagnosis Comments NON-STRESS Routine 11/29/2018 1:37 Glanzmann's Results for this TEST PM CDT thrombosthenin [...] ID Effective Dates Phone Address Type Group [facility] MEDICAID OF xxxxxxxxx 2018-Present [phone] [address] Medicaid [address] [address] documented as of this encounter Advance Directives Name Relationship Healthcare Agent Communication Relationship Geovanny Boyd Mother Primary healthcare agent [phone]
--- OUTSIDE RECORDS SUMMARY | 2019-07-09 07:24 | XMS REPORT | Summary of Care ---
:[address] [facility] Address [address] [place] [address] Care Team Providers Name Role Phone Orthopedics, Tdc Unavailable Unavailable Rimma Duran Primary Care Provider Reason for Visit Auth/Cert Status Reason Specialty Diagnoses / Procedures Referred By Contact Referred To Contact Obstetrics Diagnoses Adc Labor And Delivery [address] [place] [address] [place] [address] Encounter Details Date Type Department Care Team Description 12/03/2018 Hospital Encounter ADC Labor and Delivery Lorrie Olmos MD [address] [place] [address] [facility] [address] [place], [place] [id number] Allergies Active Allergy Reactions Severity Noted Date Comments Aspirin Unknown - See comments 12/24/2009 Unable to take d/t clotting disorder. Penicillin Unknown - See comments 06/05/2016 documented as of this encounter (statuses as of 12/03/2018) Medications Medication Sig Dispensed Refills Start Date [...] as of this encounter (statuses as of 12/03/2018) Active Problems Problem Noted Date Anemia of [...] as of this encounter (statuses as of 12/03/2018) Resolved Problems Problem Noted Date Resolved Date Threatened 11/22/2018 11/22/2018 Anemia of mother in , antepartum 08/02/2018 10/09/2018 Nausea and vomiting during 06/26/2018 10/09/2018 Headache in 06/26/2018 10/09/2018 Susceptible to varicella (non-immune), currently 05/30/20182018 Overview: Address pp Surgery, elective 02/02/2017 05/29/2018 Ankle fracture, bimalleolar, closed, left, sequela 02/02/2017 10/09/2018 Overview: Added automatically from request for surgery [id number] Cellulitis 12/30/2016 05/29/2018 Infection 12/29/2016 05/29/2018 Bleeding disorder 11/27/2016 05/29/2018 Pain 11/25/2016 05/29/2018 Bleeding 10/19/2016 05/29/2018 Pain, dental 10/11/2016 05/29/2018 Overview: Added automatically from request for surgery [id number] Infection of bone of left ankle 09/09/2016 10/09/2018 Obesity in 09/08/2016 11/19/2018 Unspecified dental caries 08/08/2016 05/29/2018 Tooth pain 08/08/2016 05/29/2018 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 06/05/2016 11/03/2016 Anemia 05/21/2016 05/29/2018 documented as of this encounter (statuses as of 12/03/2018) Immunizations Name Administration Dates Next Due TDAP [...] Sign Reading Time Taken Comments Blood Pressure 139/74 12/03/2018 2:12 PM CDT Pulse 77 12/03/2018 4:30 PM CDT Temperature 36.8 C (98.3 F) 12/03/2018 2:12 PM CDT Respiratory Rate 18 12/03/2018 2:12 PM CDT Oxygen Saturation 99% 12/03/2018 4:30 PM CDT Inhaled Oxygen Concentration - - Weight 111.5 kg (245 lb 12.8 oz) 12/03/2018 2:12 PM CDT Height 167.6 cm (5' 5.98") 12/03/2018 2:12 PM CDT Body Mass Index 39.69 12/03/2018 2:12 PM CDT documented in this encounter Discharge Instructions Debra Mcwilliams RN - 12/03/2018Preterm Labor (36 weeks and before): 1. Drink at least 10-12 glasses of [...] brown spotting after a vaginal exam. 2. [place], light red and brownish spotting is not [...] hours apart. 2. Do not take any bmxz-zur-yucxcjh medications for an illness unless you have [...] that wont go away, even after taking jzvq-zxv-lqlnkue medicines as instructed by your care provider. 4. Changes in vision, including blurry vision, a sensation of flashing lights or spots, or temporaryloss of vision. 5. Severe pain or tenderness in your upper stomach area. This may include nausea and vomiting. Keep all appointments as scheduled AttachmentsThe following attachments cannot be sent through Care Everywhere.Kick Counts (Fijian)documented in this encounter Plan of Treatment Date Type Specialty Care Team Description 12/06/2018 Routine OB Satellites 2, Jerel Costa Visit Ultrasound 12/06/2018 Routine OB Satellites Risk, Visit Dic-Josto-Pt/High 12/06/2018 Technical Maintenance Technician Visit Maternal Medicine 12/10/2018 Routine OB Satellites 1, Ang-Rmchp Nst Visit Ultrasound 12/10/2018 Routine OB Satellites Faculty, Ang Rmchp Visit Mfm 12/13/2018 Routine OB Satellites 1, Ang-Rmchp Nst Visit Ultrasound 12/13/2018 Routine OB Satellites Risk, Visit Usj-Zzakj-Nc/High 12/13/2018 Technical Maintenance Technician Visit Maternal Inga Moore MD [address] [place], [place] [address] Medicine 2, [facility] Usg Room 12/20/2018 Technical Maintenance Technician Visit Maternal Medicine 12/27/2018 Technical Maintenance Technician Visit Maternal Medicine 12/31/2018 Hospital Encounter Obstetrics Inga Moore MD [id number] [place], [place] [address] 12/31/2018 Surgery Surgery Faculty, Ob SECTION [address] [place] [address] 01/03/2019 Technical Maintenance Technician Visit Maternal 3, [facility] Room Medicine Health Maintenance Due Date Last Done Comments PNEUMOCOCCAL 0-64 YEARS COMBINED SERIES (1 1990 of 1 - PPSV23) INFLUENZA VACCINE (#1) 2018 PAP SMEAR 05/29/2021 05/29/2018, 03/30/2004 DTaP,Tdap,and Td Vaccines (2 - Td) 10/15/2028 10/15/2018 documented as of this encounter Implants Implanted Type Area Scientific Linguist Device Shelf Model / Identifier Expiration Date Serial / Lot Nail T2 Ankle Arthrodesis [id number] Left [place] F & A #[id number] - S0 NAIL Left: Tamanna 09/14/2021 [id number] / Implanted: Qty: 1 on 03/03/2017 by Dewayne Felix MD at [facility] Ankle 0 / [id number] Pin, [place] Self-Drilling [place] 5mm 150 X 25mm #5017-8-150s PIN Left: Tamanna 08/15/2019 5017-8-150S / Implanted: Qty: 1 on 11/25/2016 by Dewayne Felix MD at [facility] Ankle 0000 / [id number] Hexapod Strut PIN Left: [place] 11/25/2026 4935-0-040 / Implanted: Qty: 2 on 11/25/2016 by Dewayne Felix MD at [facility] Ankle 0000 / 000 Pin, Tamanna Self-Drilling [place] 5mm 150 X 25mm #5017-8-150s PIN Left: [place] 07/15/2021 5017-8-150S / Implanted: Qty: 1 on 11/25/2016 by Dewayne Felix MD at [facility] Ankle 0000 / [id number] Pin, Tamanna Self-Drilling [place] 5mm 150 X 25mm #5017-8-150s PIN Left: [place] 04/16/2021 5017-8-150S / Implanted: Qty: 1 on 11/25/2016 by Dewayne Felix MD at [facility] Ankle 0000 / [id number] Pin, [place] Self-Drilling [place] 5mm 150 X 25mm #5017-8-150s PIN Left: [place] 04/16/2021 5017-8-150S / Implanted: Qty: 1 on 11/25/2016 by Dewayne Felix MD at [facility] Ankle 0000 / [id number] Pin, [place] Self-Drilling [place] 5mm 150 X 25mm #5017-8-150s PIN Left: [place] 07/15/2021 5017-8-150S / Implanted: Qty: 1 on 11/25/2016 by Dewayne Felix MD at [facility] Ankle 0000 / [id number] Wire [place] - Medium 1.5 To 2.0 Mm PIN Left: Tamanna 11/25/2026 4933-1- 002 / Implanted: Qty: 2 on 11/25/2016 by Dewayne Felix MD at [facility] Ankle 0000 / 0000 Wire [place] Adapter Short PIN Left: [place] 11/25/2026 4933-1-004 / Implanted: Qty: 2 on 11/25/2016 by Dewayne Felix MD at [facility] Ankle 0000 / 0000 [place] Pin Adaptor, Short 6mm # 4933-1-020 - S0000 PIN Left: Tamanna 2019 4933-1-020 / Implanted: Qty: 3 on 11/25/2016 by Dewayne Felix MD at [facility] Ankle 0000 / 0000 Hexapod Strut Medium PIN Left: [place] 4935-0-030 / Implanted: Qty: 6 on 11/25/2016 by Dewayne Felix MD at [facility] Ankle 0000 / 0000 Foot Arch RING Left: [place] 11/25/2026 4934-6-180 / Implanted: Qty: 1 on 11/25/2016 by Dweayne Felix MD at [facility] Ankle 0000 / 0000 Screw, [place] 5 X 30mm Fully Thrded Locking #1896-5030s - S0 SCREW Left: [place] 06/14/2021 1896-5030S / Implanted: Qty: 1 on 03/03/2017 by Dewayne Felix MD at [facility] Ankle 0 / [id number] Screw, [place] 5 X 50mm Fully Thrded Locking #1896-5050s - S0 SCREW Left: Tamanna 10/14/2020 1896-5050S / Implanted: Qty: 1 on 03/03/2017 by Dewayne Felix MD at [facility] Ankle 0 / [id number] Screw Headless Compression [id number] [place] #[id number] - S0 SCREW Left: [place] 03/03/2027 083734 / Implanted: Qty: 1 on 03/03/2017 by Dewayne Felix MD at [facility] Ankle 0 / 0 K Wire [id number] WIRE Left: Tamanna 11/25/2026 5101-2-450 / Implanted: Qty: 2 on 11/25/2016 by Dewayne Felix MD at [facility] Ankle 0000 / 0000 Wire With [place] - Kathryn 2.0 X 450 Mm WIRE Left: Tamanna 11/25/2026 4933-8- 040 / Implanted: Qty: 2 on 11/25/2016 by Dewayne Felix MD at [facility] Ankle 0000 / 0000 [place] External Fixation 1.5mm-2mm Kathryn Short Carbon #4933-1-001 - S0000 Left: Tamanna 11/25/2026 4933-1-001 / Implanted: Qty: 4 on 11/25/2016 by Dewayne Felix MD at [facility] Ankle 0000 / 0000 [place] External Fixation Long Carbon 40mml Threaded #4933-1-021 - S0000 Left: Tamanna 11/25/2026 4933-1-021 / Implanted: Qty: 2 on 11/25/2016 by Dewayne Felix MD at [facility] Ankle 0000 / 0000 Set Ring External Fixation Full 180mm Id [place] Holex5 F/Foot & Ankle Fixation #4933-5-180 - S0000 Left: Tamanna 11/25/2026 4933-5-180 / Implanted: Qty: 3 on 11/25/2016 by Dewayne Felix MD at [facility] Ankle 0000 / 0000 Ring External Fixation 180mm #4934-4-180 - S0000 Left: Tamanna 2026 4934-4-180 / Implanted: Qty: 1 on 11/25/2016 by Dewayne Felix MD at [facility] Ankle 0000 / 0000 Nut External Fixation 6mm Kathryn Short #4933-1-010 - S0000 Left: [place] 4933-1-010 / Implanted: Qty: 25 on 11/25/2016 by Dewayne Felix MD at [facility] Ankle 0000 / 0000 [place] External Fixation 6mm Kathryn Carbon #4933-1-702 - S000 Left: Tamanna 11/25/2026 4933-1-702 / Implanted: Qty: 14 on 11/25/2016 by Dewayne Felix MD at [facility] Ankle 000 / 0000 Washer External Fixation 4mm Kathryn Yellow #4933-1-712 - S0000 Left: [place] 11/25/2026 4933-1-712 / Implanted: Qty: 1 on 11/25/2016 by Dewayne Felix MD at [facility] Ankle 0000 / 0000 Screw, Fixos Headless Compression [id number] [place] #[id number] - S0 Left: Tamanna 03/03/2027 [id number] / Implanted: Qty: 1 on 03/03/2017 by Dewayne Felix MD at [facility] Ankle 0 / 0 documented as of this encounter Procedures Procedure Name Priority Date/Time Associated Diagnosis Comments CONSENT/REFUSAL FOR Routine 12/03/2018 1:58 PM DIAGNOSIS AND TREATMENT CDT ASSIGNMENT OF BENEFITS Routine 12/03/2018 1:58 PM CDT documented in this encounter Results Not on filedocumented in this encounter Insurance Payer Benefit Plan / Subscriber ID Effective Dates Phone Address Type Group [employer] MEDICAID OF xxxxxxxxx 2018-Present [phone] [address] Medicaid [place] [id number] [place] [id number] (Home) [place] [address] documented as of this encounter Advance Directives Name Relationship Healthcare Agent Communication Relationship Geovanny Boyd Mother Primary healthcare agent [phone]
--- OUTSIDE RECORDS SUMMARY | 2019-07-09 07:24 | XMS REPORT | Summary of Care ---
:1985 Author Organization [facility] Address [address] [place] [address] Care Team Providers Name Role Phone Orthopedics, Tdc Unavailable Unavailable Rimma Duran Primary Care Provider Reason for Visit Reason Comments MFM Visit Encounter Details Date Type Department Care Team Description 12/03/2018 [facility] Kyle Cordero [address] [facility] [id number] [place], [place] [id number] Supervision of high risk in third trimester ( Primary Dx); Visit [place] Faculty, [facility] Anemia of mother in , antepartum; [address] Glanzmann's thrombosthenin disorder; [place], [place] History of section; [address] 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; [phone] Obesity (BMI 30-39.9) Allergies Active Allergy Reactions Severity Noted Date [...] Overview: Added automatically from request for surgery [id number] Cellulitis 12/30/2016 05/29/2018 Infection 12/29/2016 05/29/2018 Bleeding disorder 11/27/2016 05/29/2018 Pain 11/25/2016 05/29/2018 Bleeding 10/19/2016 05/29/2018 Pain, dental 10/11/2016 05/29/2018 Overview: Added automatically from request for surgery [id number] Infection of bone of left ankle 09/09/2016 [...] Sign Reading Time Taken Comments Blood Pressure 113/60 12/03/2018 10:02 AM CDT Pulse 73 12/03/2018 10:02 AM CDT Temperature 36.9 C (98.4 F) 12/03/2018 10:02 AM CDT Respiratory Rate 17 12/03/2018 10:02 AM CDT Oxygen Saturation - - Inhaled Oxygen Concentration - - Weight 111.6 kg (246 lb) 12/03/2018 10:02 AM CDT Height 167.6 cm (5' 6") 12/03/2018 10:02 AM CDT Body Mass Index 39.71 12/03/2018 10:02 AM CDT documented in this encounter Progress Notes Kyle Cordero - 12/03/2018 9:00 AM CDT Chief complaint: Chief Complaint Patient presents with MFM Visit HPI Histories OB History Para Term AB [...] IF SURGERY- consult Heme; 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 Radiology I have reviewed the patient's radiology. Level II US Allergies Bri is allergic to asa [aspirin] and penicillin. Medications Bri has a current medication list which includes the following prescription(s) : ferrous sulfate, vitamin b-12, vitamin c, and pnv 67-iron ps-folate no.1-dha. Review of Systems BP 113/60 (BP Location: Right arm, Patient Position: Sitting, BP CUFF SIZE: Adult Medium) | Pulse 73 | Temp 36.9 C (98.4 F) (Oral) | Resp 17 | Ht 5 ' 6" (1.676 m) | Wt 246 lb (111.6 kg) | LMP 04/01/2018 (Exact Date) | BMI 39.71 kg/m Pregravid BMI: 38.1 Physical Exam Assessment/Plan Return to clinic in 1 weeks. This visit did not involve counseling and coordination that comprised more than 50% of the visit time. documented in this encounter Plan of Treatment Date Type Specialty Care Team Description 12/06/2018 Routine OB Satellites 2, Ang-Rmchp Nst Visit Ultrasound 12/06/2018 Routine OB Satellites Risk, Visit Lco-Mqmaj-Pl/High 12/06/2018 Director Commercial Sales Visit Maternal Medicine 12/10/2018 Routine OB Satellites 1, Ang-Rmchp Nst Visit Ultrasound 12/10/2018 Routine OB Satellites Faculty, Ang Rmchp Visit Mfm 12/13/2018 Routine OB Satellites 1, Ang-Rmchp Nst Visit Ultrasound 12/13/2018 Routine OB Satellites Risk, Visit Zjn-Hbrzh-Sm/High 12/13/2018 Director Commercial Sales Visit Maternal Inga Moore MD [address] [facility] [id number] [place] [address] [id number] Medicine 2, [facility] Usg Room 12/20/2018 Director Commercial Sales Visit Maternal Medicine 12/27/2018 Director Commercial Sales Visit Maternal Medicine 12/31/2018 Hospital Encounter Obstetrics Inga Moore MD [id number] [place] [id number] 12/31/2018 Surgery Surgery Faculty, Ob SECTION [address] [place] [address] 01/03/2019 Director Commercial Sales Visit Maternal 3, [facility] Room Medicine Health Maintenance Due Date Last Done Comments PNEUMOCOCCAL 0-64 YEARS COMBINED SERIES (1 1990 of 1 - PPSV23) INFLUENZA VACCINE (#1) 2018 PAP SMEAR 05/29/2021 05/29/2018, 03/30/2004 DTaP,Tdap,and Td Vaccines (2 - Td) 10/15/2028 10/15/2018 documented as of this encounter Implants Implanted Type Area Professor Of Finance Device Shelf Model / Identifier Expiration Date Serial / Lot Nail T2 Ankle Arthrodesis [id number] Left [place] F & A #[id number] - S0 NAIL Left: [place] 09/14/2021 [id number] / Implanted: Qty: 1 on 03/03/2017 by Dewayne Felix MD at [facility] Ankle 0 / [id number] Pin, [place]anna Self-Drilling Half [place] 5mm 150 X 25mm #5017-8-150s PIN Left: [place] 08/15/2019 5017-8-150S / Implanted: Qty: 1 on 11/25/2016 by Dewayne Felix MD at [facility] Ankle 0000 / [id number] Hexapod Strut PIN Left: [place] 11/25/2026 4935-0-040 / Implanted: Qty: 2 on 11/25/2016 by Dewayne Felix MD at [facility] Ankle 0000 / 000 Pin, Tamanna Self-Drilling Half [place] 5mm 150 X 25mm #5017-8-150s PIN Left: Tamanna 07/15/2021 5017-8-150S / Implanted: Qty: 1 on 11/25/2016 by Dewayne Felix MD at [facility] Ankle 0000 / [id number] Pin, [place] Self-Drilling Half [place] 5mm 150 X 25mm #5017-8-150s PIN Left: Tamanna 04/16/2021 5017-8-150S / Implanted: Qty: 1 on 11/25/2016 by Dewayne Felix MD at [facility] Ankle 0000 / [id number] Pin, [place] Self-Drilling Half [place] 5mm 150 X 25mm #5017-8-150s PIN Left: [place]anna 04/16/2021 5017-8-150S / Implanted: Qty: 1 on 11/25/2016 by Dewayne Felix MD at [facility] Ankle 0000 / [id number] Pin, [place] Self-Drilling Half [place] 5mm 150 X 25mm #5017-8-150s PIN Left: [place] 07/15/2021 5017-8-150S / Implanted: Qty: 1 on 11/25/2016 by Dewayne Felix MD at [facility] Ankle 0000 / [id number] Wire [place] - Medium 1.5 To 2.0 Mm PIN Left: [place] 11/25/2026 4933-1- 002 / Implanted: Qty: 2 on 11/25/2016 by Dewayne Felix MD at [facility] Ankle 0000 / 0000 Wire [place] Adapter Short PIN Left: [place] 11/25/2026 4933-1-004 / Implanted: Qty: 2 on 11/25/2016 by Dewayne Felix MD at [facility] Ankle 0000 / 0000 [place] Pin Adaptor, Short 6mm # 4933-1-020 - S0000 PIN Left: Tamanna 2019 4933-1-020 / Implanted: Qty: 3 on 11/25/2016 by Dewayne Felix MD at [facility] Ankle 0000 / 0000 Hexapod Strut Medium PIN Left: Tamanna 4935-0-030 / Implanted: Qty: 6 on 11/25/2016 by Dewayne Felix MD at [facility] Ankle 0000 / 0000 Foot Arch RING Left: [place] 11/25/2026 4934-6-180 / Implanted: Qty: 1 on 11/25/2016 by Dewayne Felix MD at [facility] Ankle 0000 / 0000 Screw, [place]anna 5 X 30mm Fully Thrded Locking #1896-5030s - S0 SCREW Left: [place] 06/14/2021 1896-5030S / Implanted: Qty: 1 on 03/03/2017 by Dewayne Felix MD at [facility] Ankle 0 / [id number] Screw, [place] 5 X 50mm Fully Thrded Locking #1896-5050s - S0 SCREW Left: [place] 10/14/2020 1896-5050S / Implanted: Qty: 1 on 03/03/2017 by Dewayne Felix MD at [facility] Ankle 0 / [id number] Screw Headless Compression [id number] [place] #[id number] - S0 SCREW Left: Tamanna 03/03/2027 [id number] / Implanted: Qty: 1 on 03/03/2017 by Dewayne Felix MD at [facility] Ankle 0 / 0 K Wire [id number] WIRE Left: [place] 11/25/2026 5101-2-450 / Implanted: Qty: 2 on 11/25/2016 by Dewayne Felix MD at [facility] Ankle 0000 / 0000 Wire With [place] - Kathryn 2.0 X 450 Mm WIRE Left: Tamanna 11/25/2026 4933-8- 040 / Implanted: Qty: 2 on 11/25/2016 by Dewayne Felix MD at [facility] Ankle 0000 / 0000 [place] External Fixation 1.5mm-2mm Kathryn Short Carbon #4933-1-001 - S0000 Left: [place] 11/25/2026 4933-1-001 / Implanted: Qty: 4 on 11/25/2016 by Dewayne Felix MD at [facility] Ankle 0000 / 0000 [place] External Fixation Long Carbon 40mml Threaded #4933-1-021 - S0000 Left: [place] 11/25/2026 4933-1-021 / Implanted: Qty: 2 on 11/25/2016 by Dewayne Felix MD at [facility] Ankle 0000 / 0000 Set Ring External Fixation Full 180mm Id [place] Holex5 F/Foot & Ankle Fixation #4933-5-180 - S0000 Left: Tamanna 11/25/2026 4933-5-180 / Implanted: Qty: 3 on 11/25/2016 by Dewayne Feilx MD at [facility] Ankle 0000 / 0000 Ring External Fixation 180mm #4934-4-180 - S0000 Left: [place] 2026 4934-4-180 / Implanted: Qty: 1 on 11/25/2016 by Dewayne Felix MD at [facility] Ankle 0000 / 0000 Nut External Fixation 6mm Kathryn Short #4933-1-010 - S0000 Left: Tamanna 4933-1-010 / Implanted: Qty: 25 on 11/25/2016 by Dewayne Felix MD at [facility] Ankle 0000 / 0000 [place] External Fixation 6mm Kathryn Carbon #4933-1-702 - S000 Left: Tamanna 11/25/2026 4933-1-702 / Implanted: Qty: 14 on 11/25/2016 by Dewayne Felix MD at [facility] Ankle 000 / 0000 Washer External Fixation 4mm Kathryn Yellow #4933-1-712 - S0000 Left: [place] 11/25/2026 4933-1-712 / Implanted: Qty: 1 on 11/25/2016 by Dewayne Felix MD at [facility] Ankle 0000 / 0000 Screw, Fixos Headless Compression [id number] [place] #[id number] - S0 Left: Tamanna 03/03/2027 [id number] / Implanted: Qty: 1 on 03/03/2017 by Dewayne Felix MD at [facility] Ankle 0 / 0 documented as of this encounter Results Not on filedocumented in this encounter Visit Diagnoses Diagnosis Supervision of high risk in third trimester - Primary Unspecified high-risk Anemia of mother in , antepartum Anemia, antepartum 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 History of section Other postprocedural status 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 Obesity (BMI 30-39.9) Obesity, unspecified documented in this encounter Insurance Payer Benefit Plan / Subscriber ID Effective Dates Phone Address Type Group [facility] MEDICAID OF xxxxxxxxx 2018-Present [phone] [address] [place] [id number] [place] [address] (Home) [place] [address] documented as of this encounter Advance Directives Name Relationship Healthcare Agent Communication Relationship Geovanny Boyd Mother Primary healthcare agent [phone]
--- OUTSIDE RECORDS SUMMARY | 2019-07-09 07:24 | XMS REPORT | Summary of Care ---
:1985 Author Organization [facility] Address [address] [place] [address] Care Team Providers Name Role Phone Orthopedics, Tdc Unavailable Unavailable Rimma Duran Primary Care Provider Reason for Visit Reason Comments Care Encounter Details Date Type Department Care Team Description [facility] [address] [place] [address] 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 (Primary Dx); Visit Shan SchmittRmchp-Np/High Supervision of high risk in third trimester; [address] Glanzmann's thrombosthenin disorder; [place], [place] Chronic hepatitis C without hepatic coma; [address] Multiparity; [phone] Anemia of mother in , antepartum; Rubella [...] Overview: Added automatically from request for surgery [id number] Cellulitis 12/30/2016 05/29/2018 Infection 12/29/2016 05/29/2018 Bleeding disorder 11/27/2016 05/29/2018 Pain 11/25/2016 05/29/2018 Bleeding 10/19/2016 05/29/2018 Pain, dental 10/11/2016 05/29/2018 Overview: Added automatically from request for surgery [id number] Infection of bone of left ankle 09/09/2016 [...] lb 14 oz (3.572 kg) F SEC NEOMY 1 Term 02/15/04 40w0d 8 lb 13.1 oz (4 kg) F VAGINAL NOEMY Past Medical History: Diagnosis Date Anemia treated with IV iron 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 Dr. Bishop ([facility]) is following.Has 44 platelet abs. Dario is trying to find platelets vs plasmapharesis prior to delivery. Waiting to here their recommendation. RCD scheduled for12/31: 2U platelets, novoseven, TXA, uterotonics, GETA. Multidisciplinary conference this week to decide about appropriate therapy at and after delivery 2. TwopriorCD Under GETA, complicated by intra-op bleeding requiring transfusions.Saw anesthesia at [facility] on 09/19.For RCD 12/31/18. 3.Multiparity Pt declines [...] Routine OB Satellites Faculty, Ad Rmchp Visit [facility] 12/06/2018 Routine OB Satellites 2, Ang-Rmchp Nst Visit Ultrasound 12/06/2018 Routine OB Satellites Risk, Visit Har-Tcvcs-Ct/High 12/06/2018 Baling Machine Tender Visit Maternal Medicine 12/10/2018 Routine OB Satellites 1, Ang-Rmchp Nst Visit Ultrasound 12/10/2018 Routine OB Satellites Faculty, Ang Rmchp Visit [facility] 12/13/2018 Routine OB Satellites 1, Ang-Rmchp Nst Visit Ultrasound 12/13/2018 Routine OB Satellites Risk, Visit Uby-Cwkvu-Em/High 12/13/2018 Baling Machine Tender Visit Maternal TeresaInga MD [id number] [place] [address] [phone] Medicine 2, [facility] Room 12/20/2018 Baling Machine Tender Visit Maternal Medicine 12/27/2018 Baling Machine Tender Visit Maternal Medicine 12/31/2018 Hospital Encounter Obstetrics Teresa, Inga Chowdary MD [id number] [place] [address] [phone] 12/31/2018 Surgery Surgery Faculty, Ob SECTION [address] [place] [address] 01/03/2019 Baling Machine Tender Visit Maternal 3, [facility] Room Medicine Health Maintenance Due Date Last Done Comments PNEUMOCOCCAL 0-64 YEARS COMBINED SERIES (1 1990 of 1 - PPSV23) INFLUENZA VACCINE (#1) 2018 PAP SMEAR 05/29/2021 05/29/2018, 03/30/2004 DTaP,Tdap,and Td Vaccines (2 - Td) 10/15/2028 10/15/2018 documented as of this encounter Implants Implanted Type Area Operator Assistant I Cementing Device Shelf Model / Identifier Expiration Date Serial / Lot Nail T2 Ankle Arthrodesis [id number] Left Tamanna F & A #[id number] - S0 NAIL Left: Tamanna 09/14/2021 [id number] / Implanted: Qty: 1 on 03/03/2017 by Dewayne Felix MD at [facility] Ankle 0 / [id number] Pin, [place] Self-Drilling Half [place] 5mm 150 X 25mm #5017-8-150s PIN Left: [place] 08/15/2019 5017-8-150S / Implanted: Qty: 1 on 11/25/2016 by Dewayne Felix MD at [facility] Ankle 0000 / [id number] Hexapod Strut PIN Left: [place] 11/25/2026 4935-0-040 / Implanted: Qty: 2 on 11/25/2016 by Dewayne Felix MD at [facility] Ankle 0000 / 000 Pin, [place]anna Self-Drilling Half [place] 5mm 150 X 25mm #5017-8-150s PIN Left: Tamanna 07/15/2021 5017-8-150S / Implanted: Qty: 1 on 11/25/2016 by Dewayne Felix MD at [facility] Ankle 0000 / [id number] Pin, [place] Self-Drilling Half [place] 5mm 150 X 25mm #5017-8-150s PIN Left: [place] 04/16/2021 5017-8-150S / Implanted: Qty: 1 on 11/25/2016 by Dewayne Felix MD at [facility] Ankle 0000 / [id number] Pin, [place]anna Self-Drilling Half [place] 5mm 150 X 25mm #5017-8-150s PIN Left: Tamanna 04/16/2021 5017-8-150S / Implanted: Qty: 1 on 11/25/2016 by Dewayne Felix MD at [facility] Ankle 0000 / [id number] Pin, [place] Self-Drilling Half [place] 5mm 150 X 25mm #5017-8-150s PIN Left: [place] 07/15/2021 5017-8-150S / Implanted: Qty: 1 on 11/25/2016 by Dewayne Felix MD at [facility] Ankle 0000 / [id number] Wire [place] - Medium 1.5 To 2.0 Mm PIN Left: [place] 11/25/2026 4933-1- 002 / Implanted: Qty: 2 on 11/25/2016 by Dewayne Felix MD at [facility] Ankle 0000 / 0000 Wire [place] Adapter Short PIN Left: Tamanna 11/25/2026 4933-1-004 / Implanted: Qty: 2 on 11/25/2016 by Dewayne Felix MD at [facility] Ankle 0000 / 0000 [place] Pin Adaptor, Short 6mm # 4933-1-020 - S0000 PIN Left: Tamanna 2019 4933-1-020 / Implanted: Qty: 3 on 11/25/2016 by Dewayne Felix MD at [facility] Ankle 0000 / 0000 Hexapod Strut Medium PIN Left: Tamanna 4935-0-030 / Implanted: Qty: 6 on 11/25/2016 by Dewayne Felix MD at [facility] Ankle 0000 / 0000 Foot Arch RING Left: [place] 11/25/2026 4934-6-180 / Implanted: Qty: 1 on 11/25/2016 by Dewayne Felix MD at [facility] Ankle 0000 / 0000 Screw, Tamanna 5 X 30mm Fully Thrded Locking #1896-5030s - S0 SCREW Left: Tamanna 06/14/2021 1896-5030S / Implanted: Qty: 1 on 03/03/2017 by Dewayne Felix MD at [facility] Ankle 0 / [id number] Screw, Tamanna 5 X 50mm Fully Thrded Locking #1896-5050s - S0 SCREW Left: [place] 10/14/2020 1896-5050S / Implanted: Qty: 1 on 03/03/2017 by Dewayne Felix MD at [facility] Ankle 0 / [id number] Screw Headless Compression [id number] [place] #[id number] - S0 SCREW Left: [place] 03/03/2027 [id number] / Implanted: Qty: 1 on 03/03/2017 by Dewayne Felix MD at [facility] Ankle 0 / 0 K Wire [id number] WIRE Left: [place] 11/25/2026 5101-2-450 / Implanted: Qty: 2 on 11/25/2016 by Dewayne Felix MD at [facility] Ankle 0000 / 0000 Wire With [place] - Kathryn 2.0 X 450 Mm WIRE Left: [place] 11/25/2026 4933-8- 040 / Implanted: Qty: 2 on 11/25/2016 by Dewayne Felix MD at [facility] Ankle 0000 / 0000 [place] External Fixation 1.5mm-2mm Kathryn Short Carbon #4933-1-001 - S0000 Left: Tamanna 11/25/2026 4933-1-001 / Implanted: Qty: 4 on 11/25/2016 by Dewayne Felix MD at [facility] Ankle 0000 / 0000 [place] External Fixation Long Carbon 40mml Threaded #4933-1-021 - S0000 Left: [place] 11/25/2026 4933-1-021 / Implanted: Qty: 2 on 11/25/2016 by Dewayne Felix MD at [facility] Ankle 0000 / 0000 Set Ring External Fixation Full 180mm Id [place] Holex5 F/Foot & Ankle Fixation #4933-5-180 - S0000 Left: Tamanna 11/25/2026 4933-5-180 / Implanted: Qty: 3 on 11/25/2016 by Dewayne Felix MD at [facility] Ankle 0000 / 0000 Ring External Fixation 180mm #4934-4-180 - S0000 Left: [place] 2026 4934-4-180 / Implanted: Qty: 1 on 11/25/2016 by Dewayne Felix MD at [facility] Ankle 0000 / 0000 Nut External Fixation 6mm Kathryn Short #4933-1-010 - S0000 Left: Tamanna 4933-1-010 / Implanted: Qty: 25 on 11/25/2016 by Dewayne Felix MD at [facility] Ankle 0000 / 0000 [place] External Fixation 6mm Kathryn Carbon #4933-1-702 - S000 Left: [place] 11/25/2026 4933-1-702 / Implanted: Qty: 14 on 11/25/2016 by Dewayne Felix MD at [facility] Ankle 000 / 0000 [place] External Fixation 4mm Kathryn Yellow #4933-1-712 - S0000 Left: [place] 11/25/2026 4933-1-712 / Implanted: Qty: 1 on 11/25/2016 by Dewayne Felix MD at [facility] Ankle 0000 / 0000 Screw, Fixos Headless Compression [id number] Tamanna #[id number] - S0 Left: Tamanna 03/03/2027 [id number] / Implanted: Qty: 1 on 03/03/2017 by Dewayne Felix MD at [facility] Ankle 0 / 0 documented [...] ID Effective Dates Phone Address Type Group [facility] MEDICAID OF xxxxxxxxx 2018-Present [phone] [address] Medicaid [address] [address] documented as of this encounter Advance Directives Name Relationship Healthcare Agent Communication Relationship Geovanny Boyd Mother Primary healthcare agent [phone]
--- OUTSIDE RECORDS SUMMARY | 2019-07-09 07:25 | XMS REPORT | Summary of Care ---
:1985 Author Organization [facility] Address [address] [place] [id number] Care Team Providers Name Role Phone Orthopedics, Tdc Unavailable Unavailable Marycruz Quevedo [facility] Primary Care Provider Reason for Visit Reason Comments ULTRASOUND (Routine) Status Reason Specialty Diagnoses / Referred By Referred To Procedures Contact Contact Authorized OG-OBSTETRICS & Diagnoses Follow up hydrops FergusonLilianady [facility] GYNECOLOGY / Procedures CONSULT MATERNAL MEDICINE ULTRASOUND ULTRASOUND [address] Ul[facility]ound[facility] Maternal [address] [facility] Medicine [place], [place] Clinics [id number] [id number] Phone: Drive, 3[address] Floor [phone] [place], [place] Fax: [phone] Encounter Details Date Type Department Care Team Description 12/06/2018 Carrot Harvester Visit [facility] Marycruz Quevedo Encounter for screening for hydrops fetalis; Ultrasound- Jessica Mac BELKIS Disorder of placenta in third trimester [address] [place] [address] Allergies Active Allergy Reactions Severity Noted Date Comments Aspirin Unknown - See comments 12/24/2009 Unable to take d/t clotting disorder. Penicillin Unknown - See comments 06/05/2016 documented as of this encounter (statuses as of 12/06/2018) Medications Medication Sig Dispensed Refills Start Date [...] as of this encounter (statuses as of 12/06/2018) Active Problems Problem Noted Date Anemia of [...] as of this encounter (statuses as of 12/06/2018) Resolved Problems Problem Noted Date Resolved Date Threatened 11/22/2018 11/22/2018 Anemia of mother in , antepartum 08/02/2018 10/09/2018 Nausea and vomiting during 06/26/2018 10/09/2018 Headache in 06/26/2018 10/09/2018 Susceptible to varicella (non-immune), currently 05/30/20182018 Overview: Address pp Surgery, elective 02/02/2017 05/29/2018 Ankle fracture, bimalleolar, closed, left, sequela 02/02/2017 10/09/2018 Overview: Added automatically from request for surgery [id number] Cellulitis 12/30/2016 05/29/2018 Infection 12/29/2016 05/29/2018 Bleeding disorder 11/27/2016 05/29/2018 Pain 11/25/2016 05/29/2018 Bleeding 10/19/2016 05/29/2018 Pain, dental 10/11/2016 05/29/2018 Overview: Added automatically from request for surgery [id number] Infection of bone of left ankle 09/09/2016 10/09/2018 Obesity in 09/08/2016 11/19/2018 Unspecified dental caries 08/08/2016 05/29/2018 Tooth pain 08/08/2016 05/29/2018 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 06/05/2016 11/03/2016 Anemia 05/21/2016 05/29/2018 documented as of this encounter (statuses as of 12/06/2018) Immunizations Name Administration Dates Next Due TDAP [...] Treatment Date Type Specialty Care Team Description 12/10/2018 Routine OB Satellites 1, Ang-Rmchp Nst Visit Ultrasound 12/10/2018 Routine OB Satellites Faculty, Ad Rmchp Visit [facility] 12/13/2018 Routine OB Satellites 1, Ang-Rmchp Nst Visit Ultrasound 12/13/2018 Routine OB Satellites Risk, Visit Hlq-Fsrrm-Dv/High 12/13/2018 Carrot Harvester Visit Maternal Inga Moore MD [id number] [place] [address] [phone] Medicine 2, [facility] Usg Room 12/20/2018 Carrot Harvester Visit Maternal Medicine 12/27/2018 Carrot Harvester Visit Maternal Medicine 12/31/2018 Hospital Encounter Obstetrics Teresa, Inga Chowdary MD [id number] [place], [place] [id number] 12/31/2018 Surgery Surgery Faculty, Ob [address] [place] [address] 01/03/2019 Carrot Harvester Visit Maternal 3, [facility] Mf Usg Room Medicine Health Maintenance Due Date Last Done Comments PNEUMOCOCCAL 0-64 YEARS COMBINED SERIES (1 1990 of 1 - PPSV23) INFLUENZA VACCINE (#1) 2018 PAP SMEAR 05/29/2021 05/29/2018, 03/30/2004 DTaP,Tdap,and Td Vaccines (2 - Td) 10/15/2028 10/15/2018 documented as of this encounter Implants Implanted Type Area Stemming Machine Operator Device Shelf Model / Identifier Expiration Date Serial / Lot Nail T2 Ankle Arthrodesis [id number] Left Tamanna F & A #[id number] - S0 NAIL Left: Tamanna 09/14/2021 [id number] / Implanted: Qty: 1 on 03/03/2017 by Dewayne Felix MD at [facility] Ankle 0 / [id number] Pin, Tamanna Self-Drilling [place] 5mm 150 X 25mm #[id number] PIN Left: Tamanna 08/15/2019 [id number] / Implanted: Qty: 1 on 11/25/2016 by Dewayne Felix MD at [facility] Ankle 0000 / [id number] Hexapod Strut PIN Left: [place] 11/25/2026 4935-0-040 / Implanted: Qty: 2 on 11/25/2016 by Dewayne Felix MD at [facility] Ankle 0000 / 000 Pin, [place] Self-Drilling Half [place] 5mm 150 X 25mm #[id number] PIN Left: Tamanna 07/15/2021 [id number] / Implanted: Qty: 1 on 11/25/2016 by Dewayne Felix MD at [facility] Ankle 0000 / [id number] Pin, Tamanna Self-Drilling [place] 5mm 150 X 25mm #5017-8-150s PIN Left: Tamanna 04/16/2021 [id number] / Implanted: Qty: 1 on 11/25/2016 by Dewayne Felix MD at [facility] Ankle 0000 / [id number] Pin, [place] Self-Drilling Half [place] 5mm 150 X 25mm #5017-8-150s PIN Left: [place] 04/16/2021 [id number] / Implanted: Qty: 1 on 11/25/2016 by Dewayne Felix MD at [facility] Ankle 0000 / [id number] Pin, [place] Self-Drilling Half [place] 5mm 150 X 25mm #5017-8-150s PIN Left: [place] 07/15/2021 5017-8-150S / Implanted: Qty: 1 on 11/25/2016 by Dewayne Felix MD at [facility] Ankle 0000 / [id number] Wire [place] - Medium 1.5 To 2.0 Mm PIN Left: [place] 11/25/2026 4933-1- 002 / Implanted: Qty: 2 on 11/25/2016 by Dewayne Felix MD at [facility] Ankle 0000 / 0000 Wire [place] Adapter Short PIN Left: Tamanna 11/25/2026 4933-1-004 / Implanted: Qty: 2 on 11/25/2016 by Dewayne Felix MD at [facility] Ankle 0000 / 0000 [place] Pin Adaptor, Short 6mm # 4933-1-020 - S0000 PIN Left: [place] 2019 4933-1-020 / Implanted: Qty: 3 on 11/25/2016 by Dewayne Felix MD at [facility] Ankle 0000 / 0000 Hexapod Strut Medium PIN Left: [place] 4935-0-030 / Implanted: Qty: 6 on 11/25/2016 by Dewayne Felix MD at [facility] Ankle 0000 / 0000 Foot Arch RING Left: [place] 11/25/2026 4934-6-180 / Implanted: Qty: 1 on 11/25/2016 by Dewayne Felix MD at [facility] Ankle 0000 / 0000 Screw, [place] 5 X 30mm Fully Thrded Locking #1896-5030s - S0 SCREW Left: [place] 06/14/2021 [id number] / Implanted: Qty: 1 on 03/03/2017 by Dewayne Felix MD at [facility] Ankle 0 / [id number] Screw, [place] 5 X 50mm Fully Thrded Locking #1896-5050s - S0 SCREW Left: [place]anna 10/14/2020 [id number] / Implanted: Qty: 1 on 03/03/2017 by Dewayne Felix MD at [facility] Ankle 0 / [id number] Screw Headless Compression [id number] Tamanna #[id number] - S0 SCREW Left: Tamanna 03/03/2027 [id number] / Implanted: Qty: 1 on 03/03/2017 by Dewayne Felix MD at [facility] Ankle 0 / 0 K Wire [id number] WIRE Left: Tamanna 11/25/2026 5101-2-450 / Implanted: Qty: 2 on 11/25/2016 by Dewayne Felix MD at [facility] Ankle 0000 / 0000 Wire With [place] - Kathryn 2.0 X 450 Mm WIRE Left: [place] 11/25/2026 4933-8- 040 / Implanted: Qty: 2 on 11/25/2016 by Dewayne Felix MD at [facility] Ankle 0000 / 0000 [place] External Fixation 1.5mm-2mm Kathryn Short Carbon #4933-1-001 - S0000 Left: [place] 11/25/2026 4933-1-001 / Implanted: Qty: 4 on 11/25/2016 by Dewayne Felix MD at [facility] Ankle 0000 / 0000 [place] External Fixation Long Carbon 40mml Threaded #4933-1-021 - S0000 Left: [place] 11/25/2026 4933-1-021 / Implanted: Qty: 2 on 11/25/2016 by Dewayne Felix MD at [facility] Ankle 0000 / 0000 Set Ring External Fixation Full 180mm Id Carbon Holex5 F/Foot & Ankle Fixation #4933-5-180 - S0000 Left: [place] 11/25/2026 4933-5-180 / Implanted: Qty: 3 on 11/25/2016 by Dewayne Felix MD at [facility] Ankle 0000 / 0000 Ring External Fixation 180mm #4934-4-180 - S0000 Left: [place] 2026 4934-4-180 / Implanted: Qty: 1 on 11/25/2016 by Dewayne Felix MD at [facility] Ankle 0000 / 0000 Nut External Fixation 6mm Kathryn Short #4933-1-010 - S0000 Left: [place] 4933-1-010 / Implanted: Qty: 25 on 11/25/2016 by Dewayne Felix MD at [facility] Ankle 0000 / 0000 [place] External Fixation 6mm Kathryn Carbon #4933-1-702 - S000 Left: Tamanna 11/25/2026 4933-1-702 / Implanted: Qty: 14 on 11/25/2016 by Dewayne Felix MD at [facility] Ankle 000 / 0000 [place] External Fixation 4mm Kathryn Yellow #4933-1-712 - S0000 Left: [place] 11/25/2026 4933-1-712 / Implanted: Qty: 1 on 11/25/2016 by Dewayne Felix MD at [facility] Ankle 0000 / 0000 Screw, Fixos Headless Compression [id number] [place] #[id number] - S0 Left: Tamanna 03/03/2027 [id number] / Implanted: Qty: 1 on 03/03/2017 by Dewayne Felix MD at [facility] Ankle 0 / 0 documented as of this encounter Results Not on filedocumented in this encounter Visit Diagnoses Diagnosis Encounter for screening for hydrops fetalis Disorder of placenta in third trimester Other placental conditions affecting management of mother, antepartum documented in this encounter Insurance Payer Benefit Plan / Subscriber ID Effective Dates Phone Address Type Group [employer] MEDICAID OF xxxxxxxxx 2018-Present [phone] [place] [id number] [place] [address] (Home) [place] [address] documented as of this encounter Advance Directives Name Relationship Healthcare Agent Communication Relationship Geovanny Boyd Mother Primary healthcare agent [email or web address]
--- OUTSIDE RECORDS SUMMARY | 2019-07-09 07:25 | XMS REPORT | Summary of Care ---
:1985 Author Organization [facility] Address [address] [place] [address] Care Team Providers Name Role Phone Orthopedics, Tdc Unavailable Unavailable aMrycruz Quevedo [facility] Primary Care Provider Reason for Visit Reason Comments Care Encounter Details Date Type Department Care Team Description 12/06/2018 Routine [facility]- Marycruz Quevedo, [facility] [address] [place] [address] Placental cyst complicating in third trimester ( Primary Dx); Visit Ad Schmitt-Rmchp-Np/High Supervision of high risk in third trimester; [address] 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; [place], [place] Glanzmann's thrombosthenin disorder; [id number] Anemia of mother in , antepartum; [phone] Previous delivery affecting , antepartum; High risk , antepartum; Placental abnormality, antepartum; 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 Penicillin Unknown - See comments 06/05/2016 documented as of this encounter (statuses as of 12/09/2018) Medications Medication Sig Dispensed Refills Start Date [...] as of this encounter (statuses as of 12/09/2018) Active Problems Problem Noted Date Anemia of [...] as of this encounter (statuses as of 12/09/2018) Resolved Problems Problem Noted Date Resolved Date Threatened 11/22/2018 11/22/2018 Anemia of mother in , antepartum 08/02/2018 10/09/2018 Nausea and vomiting during 06/26/2018 10/09/2018 Headache in 06/26/2018 10/09/2018 Susceptible to varicella (non-immune), currently 05/30/20182018 Overview: Address pp Surgery, elective 02/02/2017 05/29/2018 Ankle fracture, bimalleolar, closed, left, sequela 02/02/2017 10/09/2018 Overview: Added automatically from request for surgery [id number] Cellulitis 12/30/2016 05/29/2018 Infection 12/29/2016 05/29/2018 Bleeding disorder 11/27/2016 05/29/2018 Pain 11/25/2016 05/29/2018 Bleeding 10/19/2016 05/29/2018 Pain, dental 10/11/2016 05/29/2018 Overview: Added automatically from request for surgery [id number] Infection of bone of left ankle 09/09/2016 10/09/2018 Obesity in 09/08/2016 11/19/2018 Unspecified dental caries 08/08/2016 05/29/2018 Tooth pain 08/08/2016 05/29/2018 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 06/05/2016 11/03/2016 Anemia 05/21/2016 05/29/2018 documented as of this encounter (statuses as of 12/09/2018) Immunizations Name Administration Dates Next Due TDAP [...] Sign Reading Time Taken Comments Blood Pressure 122/64 12/06/2018 10:34 AM CDT Pulse 95 12/06/2018 10:34 AM CDT Temperature 36.9 C (98.4 F) 12/06/2018 10:34 AM CDT Respiratory Rate 16 12/06/2018 10:34 AM CDT Oxygen Saturation - - Inhaled Oxygen Concentration - - Weight 111.3 kg (245 lb 7 oz) 12/06/2018 10:34 AM CDT Height 165.1 cm (5' 5") 12/06/2018 10:34 AM CDT Body Mass Index 40.84 12/06/2018 10:34 AM CDT documented in this encounter Progress Notes Marycruz Quevedo, WHCNP - 12/06/2018 10:00 AM CDT Chief complaint: Chief Complaint Patient presents with Care HPI CC: Follow Up Visit Bri Boyd is a 33 year old, , /White female. Patient 's last menstrual period was 04/01/2018 (exact date). She is 35w4d with an intrauterine . Her estimated date of delivery is 01/06/2019, by Last Menstrual Period. Previous c/sx2. Pt with Glanzmanns thrombasthenia.Reports feels dizzy occasionally, but no other problems today. Placental mass noted on MFM US. Reports +FM. Histories OB History Para Term AB [...] IF SURGERY- consult Heme; 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[facility], requires multiple platelets and PRBC [...] Left 02/17/2017 Surgeon: Dewayne Felix MD; Location: [facility] OR Location SURGICAL EXTRACTION - ERUPTED TEETH 10/19/2016 TIBIOCALCANEAL ARTHRODESIS Left 03/03/2017 Surgeon: Dewayne Felix MD; Location: [facility] OR Location TOOTH EXTRACTION TOOTH EXTRACTION N/A 10/19/2016 Surgeon: Jus Tinoco; Location: [facility] OR Location Social History Socioeconomic History Marital status: Single Spouse name: Not on file Number of children: Not on file Years of education: Not on file Highest education level: Not on file Occupational History 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 Radiology No new radiology. Allergies Bri is allergic to asa [aspirin] and penicillin. Medications Bri has a current medication list which includes the following prescription(s) : ferrous sulfate, vitamin b-12, vitamin c, and pnv 67-iron ps-folate no.1-dha. Review of Systems Neurological: Positive for dizziness. All other systems reviewed and are negative. BP 122/64 (BP Location: Right arm, Patient Position: Sitting, BP CUFF SIZE: Adult Large) | Pulse 95 | Temp 36.9 C (98.4 F) (Oral) | Resp 16 | Ht 5' 5 " (1.651 m) | Wt 245 lb 7 oz (111.3 kg) | LMP 04/01/2018 (Exact Date) | BMI 40.84 kg/m Pregravid BMI: 39.3 Physical Exam PHYSICAL: General Exam: Neurological: Normal Alert, oriented to person, place, time, and situation Abdomen: Normal Soft, non-tender, gravid Extremities: Normal No edema noted Assessment/Plan at 35w4d 1. Glanzmann's thrombastheniadisorder Patient reports she was [...] on regimen of B12 supplementationfor low B12. Has f/u appt Has been seen by anesthesia on 09/19. Is being reviewed weekly in M conference. Getting twice weeklyNSTs and sono every week for placental mass (hydrops eval). Dr. Bishop ([facility] blood bank) is following.Has 44 platelet abs. Dario is trying to find platelets vs plasmapharesis prior to delivery. Waiting to hear their recommendation. RCD scheduled for12/31: 2U platelets, novoseven, TXA, uterotonics, GETA. Multidisciplinary conference this week to decide about appropriate therapy at and after delivery 2. TwopriorCD Under GETA, complicated by intra-op bleeding requiring transfusions.Saw anesthesia at [facility] on 09/19.For RCD12/31/18. 3.Multiparity Pt declines BTL. 4.Chronic hepatitis C without hepatic coma. Nl LFT. Viral load5.4 million IU/ml. States acquired via blood transfusion. Counseled on risk of transmission to fetuspreviously. 5. Placental mass Twice weekly NSTs and weekly hydrops checks. Last growth 11/14 was wnl. Mass stable at 11-12cm. Usg weekly - last with nml JILLIAN/nml doppler NST today reactive and reassuring 6. Anemia S/p Tx with IV iron at [facility]09/24 and 11. Last Hb was 10 on 11/01. CBC collected today PTL warnings/kick count instructions given. 36wk labs & education today RTC 2xwkly This visit did not involve counseling and coordination that comprised more than 50% of the visit time. documented in this encounter Plan of Treatment Date Type Specialty Care Team Description 12/10/2018 Routine OB Satellites Jesse Woods MD [address] [facility] [id number] [place], [place] [address] Visit 1, Jerel Nst Ultrasound 12/10/2018 Routine OB Satellites Jesse Woods MD [id number] [place], [place] [address] Visit Faculty, Ad [facility] 12/13/2018 Routine OB Satellites 1, Jerel Nst Visit Ultrasound 12/13/2018 Routine OB Satellites Risk, Visit Ucj-Egjhi-Pe/High 12/13/2018 Svp Digital Ad Sales Visit Maternal TeresaInga somersadette, MD [address] [facility] [id number] [place], [place] [id number] Medicine 2, [facility] Usg Room 12/20/2018 Svp Digital Ad Sales Visit Maternal Medicine 12/24/2018 Hospital Encounter Obstetrics Inga Moore MD [address] [facility] [id number] [place], [place] [id number] 12/24/2018 Surgery Surgery Faculty, Ob SECTION [address] [place] [address] 12/27/2018 Svp Digital [employer] Sales Visit Maternal Medicine 01/03/2019 Svp Digital Ad Sales Visit Maternal 3, [facility] Usg Room Medicine Health Maintenance Due Date Last Done Comments PNEUMOCOCCAL 0-64 YEARS COMBINED SERIES (1 1990 of 1 - PPSV23) INFLUENZA VACCINE (#1) 2018 PAP SMEAR 05/29/2021 05/29/2018, 03/30/2004 DTaP,Tdap,and Td Vaccines (2 - Td) 10/15/2028 10/15/2018 documented as of this encounter Implants Implanted Type Area Finance Administrator Device Shelf Model / Identifier Expiration Date Serial / Lot Nail T2 Ankle Arthrodesis [id number] Left [place] F & A #[id number] - S0 NAIL Left: Tamanna 09/14/2021 [id number] / Implanted: Qty: 1 on 03/03/2017 by Dewayne Felix MD at [facility] Ankle 0 / [id number] Pin, [place] Self-Drilling Half [place] 5mm 150 X 25mm #[id number] PIN Left: Tamanna 08/15/2019 [id number] / Implanted: Qty: 1 on 11/25/2016 by Dewayne Felix MD at [facility] Ankle 0000 / [id number] Hexapod Strut PIN Left: [place] 11/25/2026 4935-0-040 / Implanted: Qty: 2 on 11/25/2016 by Dewayne Felix MD at [facility] Ankle 0000 / 000 Pin, [place] Self-Drilling Half [place] 5mm 150 X 25mm #[id number] PIN Left: Tamanna 07/15/2021 [id number] / Implanted: Qty: 1 on 11/25/2016 by Dewayne Felix MD at [facility] Ankle 0000 / [id number] Pin, [place] Self-Drilling Half [place] 5mm 150 X 25mm #[id number] PIN Left: Tamanna 04/16/2021 [id number] / Implanted: Qty: 1 on 11/25/2016 by Dewayne Felix MD at [facility] Ankle 0000 / [id number] Pin, [place] Self-Drilling Half [place] 5mm 150 X 25mm #[id number] PIN Left: [place] 04/16/2021 [id number] / Implanted: Qty: 1 on 11/25/2016 by Dewayne Felix MD at [facility] Ankle 0000 / [id number] Pin, [place] Self-Drilling Half [place] 5mm 150 X 25mm #[id number] PIN Left: [place] 07/15/2021 [id number] / Implanted: Qty: 1 on 11/25/2016 by Dewayne Felix MD at [facility] Ankle 0000 / [id number] Wire Grant - Medium 1.5 To 2.0 Mm PIN Left: Tamanna 11/25/2026 4933-1- 002 / Implanted: Qty: 2 on 11/25/2016 by Dewayne Felix MD at [facility] Ankle 0000 / 0000 Wire Grant Adapter Short PIN Left: [place]anna 11/25/2026 4933-1-004 / Implanted: Qty: 2 on 11/25/2016 by Dewayne Felix MD at [facility] Ankle 0000 / 0000 [place] Pin Adaptor, Short 6mm # 4933-1-020 - S0000 PIN Left: Tamanna 2019 4933-1-020 / Implanted: Qty: 3 on 11/25/2016 by Dewayne Felix MD at [facility] Ankle 0000 / 0000 Hexapod Strut Medium PIN Left: [place]anna 4935-0-030 / Implanted: Qty: 6 on 11/25/2016 by Dewayne Felix MD at [facility] Ankle 0000 / 0000 Foot Arch RING Left: [place]anna 11/25/2026 4934-6-180 / Implanted: Qty: 1 on 11/25/2016 by Dewayne Felix MD at [facility] Ankle 0000 / 0000 Screw, Tamanna 5 X 30mm Fully Thrded Locking #1896-5030s - S0 SCREW Left: [place] 06/14/2021 [id number] / Implanted: Qty: 1 on 03/03/2017 by Dewayne Felix MD at [facility] Ankle 0 / [id number] Screw, [place] 5 X 50mm Fully Thrded Locking #1896-5050s - S0 SCREW Left: [place]anna 10/14/2020 [id number] / Implanted: Qty: 1 on 03/03/2017 by Dewayne Felix MD at [facility] Ankle 0 / [id number] Screw Headless Compression [id number] [place] #[id number] - S0 SCREW Left: [place] 03/03/2027 [id number] / Implanted: Qty: 1 on 03/03/2017 by Dewayne Felix MD at [facility] Ankle 0 / 0 K Wire [id number] WIRE Left: [place] 11/25/2026 5101-2-450 / Implanted: Qty: 2 on 11/25/2016 by Dewayne Felix MD at [facility] Ankle 0000 / 0000 Wire With [place] - Kathryn 2.0 X 450 Mm WIRE Left: [place] 11/25/2026 4933-8- 040 / Implanted: Qty: 2 on 11/25/2016 by Dewayne Felix MD at [facility] Ankle 0000 / 0000 Grant External Fixation 1.5mm-2mm Kathryn Short Carbon #4933-1-001 - S0000 Left: [place] 11/25/2026 4933-1-001 / Implanted: Qty: 4 on 11/25/2016 by Dewayne Felix MD at [facility] Ankle 0000 / 0000 Grant External Fixation Long Carbon 40mml Threaded #4933-1-021 - S0000 Left: [place] 11/25/2026 4933-1-021 / Implanted: Qty: 2 on 11/25/2016 by Dewayne Felix MD at [facility] Ankle 0000 / 0000 Set Ring External Fixation Full 180mm Id Carbon Holex5 F/Foot & Ankle Fixation #4933-5-180 - S0000 Left: [place] 11/25/2026 4933-5-180 / Implanted: Qty: 3 on 11/25/2016 by Dewayne Felix MD at [facility] Ankle 0000 / 0000 Ring External Fixation 180mm #4934-4-180 - S0000 Left: [place] 2026 4934-4-180 / Implanted: Qty: 1 on 11/25/2016 by Dewayne Felix MD at [facility] Ankle 0000 / 0000 Nut External Fixation 6mm Kathryn Short #4933-1-010 - S0000 Left: Tamanna 4933-1-010 / Implanted: Qty: 25 on 11/25/2016 by Dewayne Felix MD at [facility] Ankle 0000 / 0000 Grant External Fixation 6mm Kathryn Carbon #4933-1-702 - S000 Left: Tamanna 11/25/2026 4933-1-702 / Implanted: Qty: 14 on 11/25/2016 by Dewayne Felix MD at [facility] Ankle 000 / 0000 Washer External Fixation 4mm Kathryn Yellow #4933-1-712 - S0000 Left: [place] 11/25/2026 4933-1-712 / Implanted: Qty: 1 on 11/25/2016 by Dewayne Felix MD at [facility] Ankle 0000 / 0000 Screw, Fixos Headless Compression [id number] [place] #[id number] - S0 Left: [place] 03/03/2027 [id number] / Implanted: Qty: 1 on 03/03/2017 by Dewayne Felix MD at [facility] Ankle 0 / 0 documented as of this encounter Procedures Procedure Name Priority Date/Time Associated Diagnosis Comments NON-STRESS TEST Routine 12/06/2018 4:10 Placental Results for this PM CDT abnormality in third procedure are in trimester the results Placental cyst section. complicating in third trimester CBC WITH DIFFERENTIAL Routine 12/06/2018 11:40 Supervision of high Results for this AM CDT risk in procedure are in third trimester the results section. GROUP B STREPTOCOCCUS Routine 12/06/2018 11:40 Supervision of high Results for this BY PCR AM CDT risk in procedure are in third trimester the results section. CBC WITH DIFF Routine 12/06/2018 11:40 Supervision of high Results for this AM CDT risk in procedure are in third trimester the results section. POCT URINALYSIS Routine 12/06/2018 10:35 Supervision of high Results for this AM CDT risk in procedure are in third trimester the results section. documented in this encounter Results NON-STRESS TEST (12/06/2018 4:10 PM CDT) Specimen Narrative Performed At NST reactive and reassuring, 1 ctx noted PACS Performing Organization Address City/State/Zipcode Phone Number PACS CBC WITH DIFFERENTIAL (12/06/2018 11:40 AM CDT) WBC 8.15 4.30 - 11.10 [facility] 10*3/L SERVICES RBC 3.48 (L) 3.93 - 5.25 [facility] 10*6/L SERVICES HGB 10.3 (L) 11.6 - 15.0 [facility] g/dL SERVICES HCT 32.5 (L) 35.7 - 45.2 % [facility] SERVICES MCV 93.4 80.6 - 95.5 [facility] fL SERVICES MCH 29.6 25.9 - 32.8 [facility] pg SERVICES MCHC 31.7 31.6 - 35.1 [facility] g/dL SERVICES RDW-SD 54.0 (H) 39.0 - 49.9 [facility] fL SERVICES RDW-CV 15.9 (H) 12.0 - 15.5 % [facility] SERVICES PLT 138 (L) 166 - 358 [facility] 10*3/L SERVICES MPV 11.6 9.5 - 12.9 fL [facility] SERVICES IPF % 5.3Comment: Platelet 1.3 - 7.7 % [facility] count measured by SERVICES fluorescence method. NRBC/100 WBC 0.0 0.0 - 10.0 [facility] /100 WBCs SERVICES NRBC x10^3 <0.01 10*3/L [facility] SERVICES GRAN MAT (NEUT) % 80.4 % [facility] SERVICES IMM GRAN % 0.40 % [facility] SERVICES LYMPH % 12.4 % [facility] SERVICES MONO % 5.6 % [facility] SERVICES EOS % 1.0 % [facility] SERVICES BASO % 0.2 % [facility] SERVICES GRAN MAT 6.55 1.88 - 7.09 [facility] x10^3(ANC) 10*3/uL SERVICES IMM GRAN x10^3 0.03 0.00 - 0.06 [facility] 10*3/uL SERVICES LYMPH x10^3 1.01 (L) 1.32 - 3.29 [facility] 10*3/uL SERVICES MONO x10^3 0.46 0.33 - 0.92 [facility] 10*3/uL SERVICES EOS x10^3 0.08 0.03 - 0.39 [facility] 10*3/uL SERVICES BASO x10^3 <0.03 0.01 - 0.07 [facility] 10*3/uL SERVICES Specimen Blood - ARM, LEFT Performing Organization Address City/[facility] Phone Number [facility] CLIA: [id number], [address] [place], [place] [address] [phone] [facility] GROUP B STREPTOCOCCUS BY PCR (12/06/2018 11:40 AM CDT) Pathologist [facility] Group B Streptococcus by Negative Negative [facility] PCR SERVICES Specimen Swab - ANAL/VAGINAL Performing Organization Address City/[facility] Phone Number [facility] CLIA: [id number], [address] [place] [phone] [facility] POCT URINALYSIS W SPECIFIC GRAVITY (12/06/2018 10:35 AM CDT) POCT U SP GRAV . 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 Multiparity Chronic hepatitis C without hepatic coma Obesity in Obesity complicating , childbirth, or the puerperium, unspecified as to episode of care or not applicable documented in this encounter Insurance Payer Benefit Plan / Subscriber ID Effective Dates Phone Address Type Group TMHP MEDICAID OF xxxxxxxxx 2018-Present [phone] [address] [place] [id number] [place] [id number] documented as of this encounter Advance Directives Name Relationship Healthcare Agent Communication Relationship Geovanny Boyd Mother Primary healthcare agent [email or web address]
--- OUTSIDE RECORDS SUMMARY | 2019-07-09 07:26 | XMS REPORT | Summary of Care ---
:1985 Author Organization [facility] Address [address] [place] [address] Care Team Providers Name Role Phone Orthopedics, Tdc Unavailable Unavailable Jesse Woods MD Primary Care Provider Reason for Visit Reason Comments Follow-up Encounter Details Date Type Department Care Team Description 12/11/2018 Case Management [facility] Ruba Chris MD Follow-up and Clinics [address] [place] [address] [place] [phone] Allergies Active Allergy Reactions Severity Noted Date Comments Aspirin Unknown - See comments 12/24/2009 Unable to take d/t clotting disorder. Penicillin Unknown - See comments 06/05/2016 documented as of this encounter (statuses as of 12/11/2018) Medications Medication Sig Dispensed Refills Start Date [...] as of this encounter (statuses as of 12/11/2018) Active Problems Problem Noted Date Anemia of [...] as of this encounter (statuses as of 12/11/2018) Resolved Problems Problem Noted Date Resolved Date Threatened 11/22/2018 11/22/2018 Anemia of mother in , antepartum 08/02/2018 10/09/2018 Nausea and vomiting during 06/26/2018 10/09/2018 Headache in 06/26/2018 10/09/2018 Susceptible to varicella (non-immune), currently 05/30/20182018 Overview: Address pp Surgery, elective 02/02/2017 05/29/2018 Ankle fracture, bimalleolar, closed, left, sequela 02/02/2017 10/09/2018 Overview: Added automatically from request for surgery [id number] Cellulitis 12/30/2016 05/29/2018 Infection 12/29/2016 05/29/2018 Bleeding disorder 11/27/2016 05/29/2018 Pain 11/25/2016 05/29/2018 Bleeding 10/19/2016 05/29/2018 Pain, dental 10/11/2016 05/29/2018 Overview: Added automatically from request for surgery [id number] Infection of bone of left ankle 09/09/2016 10/09/2018 Obesity in 09/08/2016 11/19/2018 Unspecified dental caries 08/08/2016 05/29/2018 Tooth pain 08/08/2016 05/29/2018 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 Bishop (cell [phone]) - Notify Pharamacy for Nova7 to be mixed - Notify Pedi - Call Lab [facility] to callibrate TEG machine (will take 1h to calibrate) - Plan to give 2 packs of PLT, Novo7 30 min prior to CD 90 mcg/kg and TXA prior to insicion. - After delivery do q4h TEG to assess furhther need for PLT or Nova7 - If she will require additional doses of Nova7, is it available in the Pharmacy , need to call Anemia - H/H 32.8 -S/p x 2 IV iron infusions - Hematology is followign - On B12 supplement HCV - Viral load 5.4 million IU/mlComme History of x 2 (GETA) +1 - 2008 - 2006 - Desires BTL documented in this encounter Plan of Treatment Date Type Specialty Care Team Description 12/13/2018 Repair Supervisor Visit Maternal Teresa, Inga Chowdary MD [address] [place] [address] [phone] Medicine 2, [facility] Usg Room 12/13/2018 Routine OB Satellites 2, [facility] Nst Visit Ultrasound 12/13/2018 Routine OB Satellites Pgy2 Visit 12/18/2018 Routine OB Satellites 2, Ang-Rmchp Nst Visit Ultrasound 12/18/2018 Routine OB Satellites SydMax, Visit SPECIAL MAKEUP FX ARTIST INSTRUCTOR [address] [place] [address] [phone] 12/20/2018 Routine OB Satellites 1, Ang-Rmchp Nst Visit Ultrasound 12/20/2018 Routine OB Satellites Risk, Visit Gbs-Ajspm-Qj/High 12/20/2018 Repair Supervisor Visit Maternal Medicine 12/24/2018 Hospital Encounter Obstetrics Teresa, Inga Chowdary MD [address] [place] [address] [phone] 12/24/2018 Surgery Surgery Faculty, Ob SECTION [address] [place] [address] 12/27/2018 Repair Supervisor Visit Maternal Medicine 01/03/2019 Repair Supervisor Visit Maternal 3, [facility] Usg Room Medicine Health Maintenance Due Date Last Done Comments PNEUMOCOCCAL 0-64 YEARS COMBINED SERIES (1 1990 of 1 - PPSV23) INFLUENZA VACCINE (#1) 2018 PAP SMEAR 05/29/2021 05/29/2018, 03/30/2004 DTaP,Tdap,and Td Vaccines (2 - Td) 10/15/2028 10/15/2018 documented as of this encounter Implants Implanted Type Area Channeler Insole Device Shelf Model / Identifier Expiration Date Serial / Lot Nail T2 Ankle Arthrodesis [id number] Left Tamanna F & A #[id number] - S0 NAIL Left: Tamanna 09/14/2021 [id number] / Implanted: Qty: 1 on 03/03/2017 by Dewayne Felix MD at [facility] Ankle 0 / [id number] Pin, [place] Self-Drilling Half [place] 5mm 150 X 25mm #5017-8-150s PIN Left: [place] 08/15/2019 5017-8-150S / Implanted: Qty: 1 on 11/25/2016 by Dewayne Felix MD at [facility] Ankle 0000 / [id number] Hexapod Strut PIN Left: Tamanna 11/25/2026 4935-0-040 / Implanted: Qty: 2 on 11/25/2016 by Dewayne Felix MD at [facility] Ankle 0000 / 000 Pin, [place] Self-Drilling Half [place] 5mm 150 X 25mm #5017-8-150s PIN Left: Tamanna 07/15/2021 5017-8-150S / Implanted: Qty: 1 on 11/25/2016 by Dewayne Felix MD at [facility] Ankle 0000 / [id number] Pin, [place] Self-Drilling Half [place] 5mm 150 X 25mm #5017-8-150s PIN Left: Tamanna 04/16/2021 5017-8-150S / Implanted: Qty: 1 on 11/25/2016 by Dewayne Felix MD at [facility] Ankle 0000 / [id number] Pin, [place] Self-Drilling Half [place] 5mm 150 X 25mm #5017-8-150s PIN Left: Tamanna 04/16/2021 5017-8-150S / Implanted: Qty: 1 on 11/25/2016 by Dewayne Felix MD at [facility] Ankle 0000 / [id number] Pin, [place] Self-Drilling Half [place] 5mm 150 X 25mm #5017-8-150s PIN Left: [place] 07/15/2021 5017-8-150S / Implanted: Qty: 1 on 11/25/2016 by Dewayne Felix MD at [facility] Ankle 0000 / [id number] Wire [place] - Medium 1.5 To 2.0 Mm PIN Left: [place] 11/25/2026 4933-1- 002 / Implanted: Qty: 2 on 11/25/2016 by Dewayne Felix MD at [facility] Ankle 0000 / 0000 Wire [place] Adapter Short PIN Left: [place] 11/25/2026 4933-1-004 / Implanted: Qty: 2 on 11/25/2016 by Dewayne Felix MD at [facility] Ankle 0000 / 0000 [place] Pin Adaptor, Short 6mm # 4933-1-020 - S0000 PIN Left: Tamanna 2019 4933-1-020 / Implanted: Qty: 3 on 11/25/2016 by Dewayne Felix MD at [facility] Ankle 0000 / 0000 Hexapod Strut Medium PIN Left: [place] 4935-0-030 / Implanted: Qty: 6 on 11/25/2016 by Dewayne Felix MD at [facility] Ankle 0000 / 0000 Foot Arch RING Left: [place] 11/25/2026 4934-6-180 / Implanted: Qty: 1 on 11/25/2016 by Dewayne Felix MD at [facility] Ankle 0000 / 0000 Screw, [place] 5 X 30mm Fully Thrded Locking #1896-5030s - S0 SCREW Left: Tamanna 06/14/2021 1896-5030S / Implanted: Qty: 1 on 03/03/2017 by Dewayne Felix MD at [facility] Ankle 0 / [id number] Screw, [place] 5 X 50mm Fully Thrded Locking #1896-5050s - S0 SCREW Left: Tamanna 10/14/2020 1896-5050S / Implanted: Qty: 1 on 03/03/2017 by Dewayne Felix MD at [facility] Ankle 0 / [id number] Screw Headless Compression [id number] [place] #[id number] - S0 SCREW Left: Tamanna 03/03/2027 [id number] / Implanted: Qty: 1 on 03/03/2017 by Dewayne Felix MD at [facility] Ankle 0 / 0 K Wire [id number] WIRE Left: Tamanna 11/25/2026 5101-2-450 / Implanted: Qty: 2 on 11/25/2016 by Dewayne Felix MD at [facility] Ankle 0000 / 0000 Wire With [place] - Kathryn 2.0 X 450 Mm WIRE Left: Tamanna 11/25/2026 4933-8- 040 / Implanted: Qty: 2 on 11/25/2016 by Dewayne Felix MD at [facility] Ankle 0000 / 0000 [place] External Fixation 1.5mm-2mm Kathryn Short Carbon #4933-1-001 - S0000 Left: [place] 11/25/2026 4933-1-001 / Implanted: Qty: 4 on 11/25/2016 by Dewayne Felix MD at [facility] Ankle 0000 / 0000 [place] External Fixation Long [place] 40mml Threaded #4933-1-021 - S0000 Left: Tamanna 11/25/2026 4933-1-021 / Implanted: Qty: 2 on 11/25/2016 by Dewayne Felix MD at [facility] Ankle 0000 / 0000 Set Ring External Fixation Full 180mm Id [place] Holex5 F/Foot & Ankle Fixation #4933-5-180 - S0000 Left: [place] 11/25/2026 4933-5-180 / Implanted: Qty: 3 on 11/25/2016 by Dewayne Felix MD at [facility] Ankle 0000 / 0000 Ring External Fixation 180mm #4934-4-180 - S0000 Left: [place] 2026 4934-4-180 / Implanted: Qty: 1 on 11/25/2016 by Dewayne Felix MD at [facility] Ankle 0000 / 0000 Nut External Fixation 6mm Kath[place] Short #4933-1-010 - S0000 Left: [place] 4933-1-010 / Implanted: Qty: 25 on 11/25/2016 by Dewayne Felix MD at [facility] Ankle 0000 / 0000 [place] External Fixation 6mm Kathryn Carbon #4933-1-702 - S000 Left: [place] 11/25/2026 4933-1-702 / Implanted: Qty: 14 on 11/25/2016 by Dewayne Felix MD at [facility] Ankle 000 / 0000 Washer External Fixation 4mm Kathryn Yellow #4933-1-712 - S0000 Left: Tamanna 11/25/2026 4933-1-712 / Implanted: Qty: 1 on 11/25/2016 by Dewayne Felix MD at [facility] Ankle 0000 / 0000 Screw, Fixos Headless Compression [id number] [place] #198562 - S0 Left: Tamanna 03/03/2027 [id number] / Implanted: Qty: 1 on 03/03/2017 by Dewayne Felix MD at [facility] Ankle 0 / 0 documented as of this encounter Results Not on filedocumented in this encounter Insurance Payer Benefit Plan / Subscriber ID Effective Dates Phone Address Type Group [facility] MEDICAID OF xxxxxxxxx 2018-Present [phone] [address] Medicaid [address] [address] documented as of this encounter Advance Directives Name Relationship Healthcare Agent Communication Relationship Geovanny Boyd Mother Primary healthcare agent [phone]
--- OUTSIDE RECORDS SUMMARY | 2019-07-09 07:26 | XMS REPORT | Summary of Care ---
:1985 Author Organization [facility] Address [address] [place] [address] Care Team Providers Name Role Phone Orthopedics, Tdc Unavailable Unavailable Jesse Woods MD Primary Care Provider Reason for Visit Reason Comments MFM Visit NON-STRESS TEST Encounter Details Date Type Department Care Team Description [facility] [address] [facility] [address]6064 [place], [place] [id number] Placental cyst complicating in third trimester ( Primary Dx); Visit [facility], [facility] Supervision of high risk in third trimester; [address] [place] Previous delivery affecting , antepartum; [place], [place] Chronic hepatitis C without hepatic coma; [phone] Glanzmann's thrombosthenin disorder [phone] Allergies Active Allergy Reactions Severity Noted Date Comments Aspirin Unknown - See comments 12/24/2009 Unable to take d/t clotting disorder. Penicillin Unknown - See comments 06/05/2016 documented as of this encounter (statuses as of 12/10/2018) Medications Medication Sig Dispensed Refills Start Date [...] as of this encounter (statuses as of 12/10/2018) Active Problems Problem Noted Date Anemia of [...] as of this encounter (statuses as of 12/10/2018) Resolved Problems Problem Noted Date Resolved Date Threatened 11/22/2018 11/22/2018 Anemia of mother in , antepartum 08/02/2018 10/09/2018 Nausea and vomiting during 06/26/2018 10/09/2018 Headache in 06/26/2018 10/09/2018 Susceptible to varicella (non-immune), currently 05/30/20182018 Overview: Address pp Surgery, elective 02/02/2017 05/29/2018 Ankle fracture, bimalleolar, closed, left, sequela 02/02/2017 10/09/2018 Overview: Added automatically from request for surgery [id number] Cellulitis 12/30/2016 05/29/2018 Infection 12/29/2016 05/29/2018 Bleeding disorder 11/27/2016 05/29/2018 Pain 11/25/2016 05/29/2018 Bleeding 10/19/2016 05/29/2018 Pain, dental 10/11/2016 05/29/2018 Overview: Added automatically from request for surgery [id number] Infection of bone of left ankle 09/09/2016 10/09/2018 Obesity in 09/08/2016 11/19/2018 Unspecified dental caries 08/08/2016 05/29/2018 Tooth pain 08/08/2016 05/29/2018 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 06/05/2016 11/03/2016 Anemia 05/21/2016 05/29/2018 documented as of this encounter (statuses as of 12/10/2018) Immunizations Name Administration Dates Next Due TDAP [...] Sign Reading Time Taken Comments Blood Pressure 98/66 12/10/2018 10:42 AM CDT Pulse 71 12/10/2018 10:42 AM CDT Temperature 37.1 C (98.7 F) 12/10/2018 10:42 AM CDT Respiratory Rate 16 12/10/2018 10:42 AM CDT Oxygen Saturation - - Inhaled Oxygen Concentration - - Weight 109.8 kg (242 lb) 12/10/2018 10:42 AM CDT Height 165.1 cm (5' 5") 12/10/2018 10:42 AM CDT Body Mass Index 40.27 12/10/2018 10:42 AM CDT documented in this encounter Progress Notes Jesse Woods MD - 12/10/2018 10:30 AM CDT Chief complaint: Chief Complaint Patient presents with MFM Visit NON-STRESS TEST HPI Histories OB History Para Term AB Living 4 3 3 0 3 SAB TAB Ectopic Multiple Live Births 3 # Outcome Date GA Lbr Jacob/2nd Weight Sex Delivery Anes PTL Lv 4 Current 3 Term 09/03/08 38w0d 6 lb 9 oz (2.977 kg) M SEC NOEMY 2 Term 11/14/07 39w0d 7 lb 14 oz (3.572 kg) F SEC NOEMY 1 Term 02/15/04 40w0d 8 lb 13.1 oz (4 kg) F VAGINAL NOEMY Past Medical History: Diagnosis Date Anemia treated with IV iron 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 good growth. Allergies Bri is allergic to asa [aspirin] and penicillin. Medications Bri has a current medication list which includes the following prescription(s) : ferrous sulfate, vitamin b-12, vitamin c, and pnv 67-iron ps-folate no.1-dha. Review of Systems All other systems reviewed and are negative. BP 98/66 | Pulse 71 | Temp 37.1 C (98.7 F) | Resp 16 | Ht 5' 5" (1.651 m ) | Wt 242 lb (109.8 kg) | LMP 04/01/2018 (Exact Date) | BMI 40.27 kg/m Pregravid BMI: 39.3 Physical Exam Vitals reviewed. Constitutional: Her body habitus is obese. Neck: No tenderness and no mass. Cardiovascular: Regular rate and rhythm. Pulmonary/Chest: Normal inspiratory effort. Abdominal: Abdomen is soft. Neuro/Psychiatric: She has a normal mood and affect. Breast: Normal left breast and normal right breast PHYSICAL: General Exam: HEENT: Normal Thyroid: Normal Lymph Node: Normal Neurological: Normal Heart: Normal Lungs: Normal Breasts: Normal Abdomen: Normal Skin: Normal Extremities: Normal Pelvic Exam: Uterus: 36 Weeks Assessment/Plan Return to clinic in 1 weeks. This visit involved counseling and coordination of care that comprised more than 50% of the visit time. I spent 25 minute(s) total time with the patient. Of that time, 15 minute(s) was spent on historyand exam, and 10 minute(s) was spent counseling the patient regarding risks and benefits of treatment. documented in this encounter Plan of Treatment Date Type Specialty Care Team Description 12/10/2018 Ancillary Procedure OB Satellites Jesse Woods Arrived MD [address] [id number] 12/13/2018 Sql Data Analyst Visit Maternal Inga Moore MD [address] [phone] Medicine 2, [facility] Usg Room 12/18/2018 Routine OB Satellites 2, [facility] Nst Visit Ultrasound 12/18/2018 Routine OB Satellites Max Velarde, Visit UNEMPLOYMENT INSURANCE DIRECTOR [address] [place], [place] [address] 12/20/2018 Sql Data Analyst Visit Maternal Medicine 12/24/2018 Hospital Encounter Obstetrics Inga Moore MD [address] [phone] 12/24/2018 Surgery Surgery Faculty, Ob SECTION [address] [place] [address] 12/27/2018 Sql Data Analyst Visit Maternal Medicine 01/03/2019 Sql Data Analyst Visit Maternal 3, [facility] Usg Room Medicine Health Maintenance Due Date Last Done Comments PNEUMOCOCCAL 0-64 YEARS COMBINED SERIES (1 1990 of 1 - PPSV23) INFLUENZA VACCINE (#1) 2018 PAP SMEAR 05/29/2021 05/29/2018, 03/30/2004 DTaP,Tdap,and Td Vaccines (2 - Td) 10/15/2028 10/15/2018 documented as of this encounter Implants Implanted Type Area Occasional Babysitter Device Shelf Model / Identifier Expiration Date Serial / Lot Nail T2 Ankle Arthrodesis [id number] Left Herminie F & A #[id number] - S0 NAIL Left: Tamanna 09/14/2021 [id number] / Implanted: Qty: 1 on 03/03/2017 by Dewayne Felix MD at [facility] Ankle 0 / [id number] Pin, [place] Self-Drilling Half [place] 5mm 150 X 25mm #5017-8-150s PIN Left: [place] 08/15/2019 5017-8-150S / Implanted: Qty: 1 on 11/25/2016 by Dewayne Feilx MD at [facility] Ankle 0000 / [id number] Hexapod Strut PIN Left: Tamanna 11/25/2026 4935-0-040 / Implanted: Qty: 2 on 11/25/2016 by Dewayne Felix MD at [facility] Ankle 0000 / 000 Pin, [place] Self-Drilling Half [place] 5mm 150 X 25mm #5017-8-150s PIN Left: [place] 07/15/2021 5017-8-150S / Implanted: Qty: 1 on 11/25/2016 by Dewayne Felix MD at [facility] Ankle 0000 / [id number] Pin, [place] Self-Drilling Half [place] 5mm 150 X 25mm #5017-8-150s PIN Left: Herminie 04/16/2021 5017-8-150S / Implanted: Qty: 1 on 11/25/2016 by Dewayne Felix MD at [facility] Ankle 0000 / [id number] Pin, [place] Self-Drilling Half [place] 5mm 150 X 25mm #5017-8-150s PIN Left: Tamanna 04/16/2021 5017-8-150S / Implanted: Qty: 1 on 11/25/2016 by Dewayne Felix MD at [facility] Ankle 0000 / [id number] Pin, [place] Self-Drilling Half [place] 5mm 150 X 25mm #5017-8-150s PIN Left: Tamanna 07/15/2021 5017-8-150S / Implanted: Qty: 1 on 11/25/2016 by Dewayne Felix MD at [facility] Ankle 0000 / [id number] Wire [place] - Medium 1.5 To 2.0 Mm PIN Left: Tamanna 11/25/2026 4933-1- 002 / Implanted: Qty: 2 on 11/25/2016 by Dewayne Felix MD at [facility] Ankle 0000 / 0000 Wire [place] Adapter Short PIN Left: Herminie 11/25/2026 4933-1-004 / Implanted: Qty: 2 on 11/25/2016 by Dewayne Felix MD at [facility] Ankle 0000 / 0000 [place] Pin Adaptor, Short 6mm # 4933-1-020 - S0000 PIN Left: Herminie 2019 4933-1-020 / Implanted: Qty: 3 on 11/25/2016 by Dewayne Felix MD at [facility] Ankle 0000 / 0000 Hexapod Strut Medium PIN Left: [place]in[place] 4935-0-030 / Implanted: Qty: 6 on 11/25/2016 by Dewayne Felix MD at [facility] Ankle 0000 / 0000 Foot Arch RING Left: Tamanna 11/25/2026 4934-6-180 / Implanted: Qty: 1 on 11/25/2016 by Dewayne Felix MD at [facility] Ankle 0000 / 0000 Screw, [place] 5 X 30mm Fully Thrded Locking #1896-5030s - S0 SCREW Left: Tamanna 06/14/2021 1896-5030S / Implanted: Qty: 1 on 03/03/2017 by Dewayne Felix MD at [facility] Ankle 0 / [id number] Screw, Herminie 5 X 50mm Fully Thrded Locking #1896-5050s - S0 SCREW Left: Tamanna 10/14/2020 1896-5050S / Implanted: Qty: 1 on 03/03/2017 by Dewayne Felix MD at [facility] Ankle 0 / [id number] Screw Headless Compression [id number] Herminie #[id number] - S0 SCREW Left: Herminie 03/03/2027 [id number] / Implanted: Qty: 1 on 03/03/2017 by Dewayne Felix MD at [facility] Ankle 0 / 0 K Wire [id number] WIRE Left: Herminie 11/25/2026 5101-2-450 / Implanted: Qty: 2 on 11/25/2016 by Dewayne Felix MD at [facility] Ankle 0000 / 0000 Wire With [place] - Kathryn 2.0 X 450 Mm WIRE Left: Herminie 11/25/2026 4933-8- 040 / Implanted: Qty: 2 on 11/25/2016 by Dewayne Felix MD at [facility] Ankle 0000 / 0000 [place] External Fixation 1.5mm-2mm Kathryn Short Carbon #4933-1-001 - S0000 Left: Herminie 11/25/2026 4933-1-001 / Implanted: Qty: 4 on 11/25/2016 by Dewayne Felix MD at [facility] Ankle 0000 / 0000 [place] External Fixation Long Carbon 40mml Threaded #4933-1-021 - S0000 Left: Herminie 11/25/2026 4933-1-021 / Implanted: Qty: 2 on 11/25/2016 by Dewayne Felix MD at [facility] Ankle 0000 / 0000 Set Ring External Fixation Full 180mm Id [place] Holex5 F/Foot & Ankle Fixation #4933-5-180 - S0000 Left: Tamanna 11/25/2026 4933-5-180 / Implanted: Qty: 3 on 11/25/2016 by Dewayne Felix MD at [facility] Ankle 0000 / 0000 Ring External Fixation 180mm #4934-4-180 - S0000 Left: Tamanna 2026 4934-4-180 / Implanted: Qty: 1 on 11/25/2016 by Dewayne Felix MD at [facility] Ankle 0000 / 0000 Nut External Fixation 6mm [place] Short #4933-1-010 - S0000 Left: Tamanna 4933-1-010 / Implanted: Qty: 25 on 11/25/2016 by Dewayne Felix MD at [facility] Ankle 0000 / 0000 [place] External Fixation 6mm Kathryn Carbon #4933-1-702 - S000 Left: Tamanna 11/25/2026 4933-1-702 / Implanted: Qty: 14 on 11/25/2016 by Dewayne Felix MD at [facility] Ankle 000 / 0000 Washer External Fixation 4mm Kathryn Yellow #4933-1-712 - S0000 Left: Herminie 11/25/2026 4933-1-712 / Implanted: Qty: 1 on 11/25/2016 by Dewayne Felix MD at [facility] Ankle 0000 / 0000 Screw, Fixos Headless Compression [id number] Tamanna #[id number] - S0 Left: Tamanna 03/03/2027 [id number] / Implanted: Qty: 1 on 03/03/2017 by Dewayne Felix MD at [facility] Ankle 0 / 0 documented as of this encounter Procedures Procedure Name Priority Date/Time Associated Diagnosis Comments NON-STRESS Routine 12/10/2018 11:53 Placental cyst Results for this TEST AM CDT complicating procedure are in in third trimester the results Chronic hepatitis C section. without hepatic coma Glanzmann's thrombosthenin disorder POCT URINALYSIS Routine 12/10/2018 10:44 Supervision of high Results for this AM CDT risk in procedure are in third trimester the results section. documented in this encounter Results NON-STRESS TEST (12/10/2018 11:53 AM CDT) Specimen Narrative Performed At NST reviewed, FHR 140s, moderate variability noted, category I, no PACS contractions. Performing Organization Address City/State/Zipcode Phone Number PACS POCT URINALYSIS W SPECIFIC GRAVITY (12/10/2018 10:44 AM CDT) POCT U SP GRAV . 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
--- OUTSIDE RECORDS SUMMARY | 2019-07-09 07:27 | XMS REPORT | Summary of Care ---
:1985 Author Organization [facility] Address [address] [place] [address] Care Team Providers Name Role Phone Orthopedics, Tdc Unavailable Unavailable Jesse Woods MD Primary Care Provider Reason for Visit Reason Comments NON-STRESS TEST Encounter Details Date Type Department Care Team Description 12/13/2018 Routine [facility] [address] [place] [address] [phone] Supervision of high Visit [facility] Jesse Woods MD [address] [place] [address] [phone] risk in [facility] Chacorta Clark MD [address] [place] [phone] third trimester [address] [facility] Resident (Primary Dx) Drive, 7th [place] [address] Allergies Active Allergy Reactions Severity Noted Date Comments Aspirin Unknown - See comments 12/24/2009 Unable to take d/t clotting disorder. Penicillin Unknown - See comments 06/05/2016 documented as of this encounter (statuses as of 12/13/2018) Medications Medication Sig Dispensed Refills Start Date [...] as of this encounter (statuses as of 12/13/2018) Active Problems Problem Noted Date Research study patient: ECCCO: Group C 12/13/2018 Overview: Notice of research participation in the [facility] Trial: IRB # [id number]. PI- Modesto De La Rosa MD. Date of informed consent: ___12/13/18_. Patient consented to participate in a research study entitled: Electronic Confirmed versus Conventional Consenting Process. Patient randomized to Study group C. Electronic consent to be completed prior to arrival to Labor and delivery for schedule section. Upon arrival to L&D patient will receive regular paper consent from health care provider. Research staff will give the patient a study questionnaire before discharge home. Patient will remain in the study until completion of questionnaire. Delivery samples do not need to be collected. Please page the Research Department. If you should have questions or concerns, you may page the PRD at [phone]. Anemia of mother in , antepartum 11/19/2018 [...] as of this encounter (statuses as of 12/13/2018) Resolved Problems Problem Noted Date Resolved Date Threatened 11/22/2018 11/22/2018 Anemia of mother in , antepartum 08/02/2018 10/09/2018 Nausea and vomiting during 06/26/2018 10/09/2018 Headache in 06/26/2018 10/09/2018 Susceptible to varicella (non-immune), currently 05/30/20182018 Overview: Address pp Surgery, elective 02/02/2017 05/29/2018 Ankle fracture, bimalleolar, closed, left, sequela 02/02/2017 10/09/2018 Overview: Added automatically from request for surgery [id number] Cellulitis 12/30/2016 05/29/2018 Infection 12/29/2016 05/29/2018 Bleeding disorder 11/27/2016 05/29/2018 Pain 11/25/2016 05/29/2018 Bleeding 10/19/2016 05/29/2018 Pain, dental 10/11/2016 05/29/2018 Overview: Added automatically from request for surgery [id number] Infection of bone of left ankle 09/09/2016 10/09/2018 Obesity in 09/08/2016 11/19/2018 Unspecified dental caries 08/08/2016 05/29/2018 Tooth pain 08/08/2016 05/29/2018 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 06/05/2016 11/03/2016 Anemia 05/21/2016 05/29/2018 documented as of this encounter (statuses as of 12/13/2018) Immunizations Name Administration Dates Next Due TDAP [...] Sign Reading Time Taken Comments Blood Pressure 110/56 12/13/2018 1:42 PM CDT Pulse 74 12/13/2018 1:42 PM CDT Temperature 36.7 C (98.1 F) 12/13/2018 1:42 PM CDT Respiratory Rate 18 12/13/2018 1:42 PM CDT Oxygen Saturation - - Inhaled Oxygen Concentration - - Weight 109.5 kg (241 lb 8 oz) 12/13/2018 1:42 PM CDT Height 165.1 cm (5' 5") 12/13/2018 1:42 PM CDT Body Mass Index 40.19 12/13/2018 1:42 PM CDT documented in this encounter Progress Notes Michael Leach MD - 12/13/2018 2:30 PM CDT Chief complaint: Chief Complaint Patient presents with NON-STRESS TEST CC: Follow Up Visit Bri Boyd is a 33 year old, , /White female. Patient 's last menstrual period was 04/01/2018 (exact date). She is 36w4d with an intrauterine . Today she denies anycontractions, vaginal bleeding, LOF. Reports good movement Reports was having abdominal pain and diarrhea that stopped this morning. No nausea, vomiting, feveror chills. That occurred after eating out. 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 Social Needs Financial resource strain: Not on file Food insecurity: Worry: Not on file Inability: Not on file Transportation needs: Medical: Not on file Non-medical: Not on file Tobacco Use Smoking status: Former Smoker Packs/day: 0.10 Years: 1.50 Pack years: 0.15 Types: Cigarettes Last attempt to quit: 06/21/2015 Years since quittin.4 Smokeless tobacco: Never Used Tobacco comment: 1 pack per week; quit 2016 Substance and Sexual Activity Alcohol use: No Alcohol/week: 0.0 oz Comment: occasionally Drug use: No Sexual activity: Yes Partners: Male control/protection: None Comment: last intercourse 05/27/2018 Lifestyle Physical activity: Days per week: Not on file Minutes per session: Not on file Stress: Not on file Relationships Social connections: Talks on phone: Not on file Gets together: Not on file Attends jew service: Not on file Active member of [...] 67-iron ps-folate no.1-dha. Review of Systems Constitutional: Negative. HENT: Negative. Eyes: Negative. Respiratory: Negative. Breasts: Negative. Cardiovascular: Negative. Gastrointestinal: Negative. Genitourinary: Negative. Musculoskeletal: Negative. Skin: Negative. Neurological: Negative. Psychiatric/Behavioral: Negative. Endocrine: Endocrine negative BP 110/56 | Pulse 74 | Temp 36.7 C (98.1 F) (Oral) | Resp 18 | Ht 5' 5" (1.651 m) | Wt 241 lb 8 oz (109.5 kg) | LMP 04/01/2018 (Exact Date) | BMI 40.19 kg/m Pregravid BMI: 39.3 Physical Exam Vitals reviewed. Constitutional: She is oriented to person, place, and time. She appears well- developed. Pulmonary/Chest: Normal inspiratory effort. Abdominal: Abdomen is soft. No mass palpated. No tenderness present. There is no rigidity and no guarding. Neuro/Psychiatric: She has a normal mood and affect. She is oriented to person, place, and time. Assessment/Plan Supervision of high risk in third trimester (primary encounter diagnosis) Comment: Patient is here today for NST. Follows up usually in [place] clinic, in our clinic today for regular NST since she had M US scheduled in [place]. Patient is getting twice weekly NST due to placental mass on US. No evidence of hydrops Patient with h/o 2 previous CS scheduled for repeat with delivery plan in [facility] by [facility] due to h/o Glanzmann Thrombastenia NST in clinic today reactive and reassuring with no contractions. Patient comfortable with no complaints Has scheduled follow up in [facility] on Monday Reviewed patient instructions and provided printed copy. This visit did not involve counseling and coordination that comprised more than 50% of the visit time. Discussed with Dr. Wilber Leach MD documented in this encounter Plan of Treatment Date Type Specialty Care Team Description 12/18/2018 Routine OB Satellites 2, Ang-Rmchp Nst Visit Ultrasound 12/18/2018 Routine OB Satellites Max Velarde, Visit NEUROLOGICAL SURGERY TEACHER [address] [place] [address] [phone] 12/20/2018 Routine OB Satellites 1, Ang-Rmchp Nst Visit Ultrasound 12/20/2018 Routine OB Satellites Risk, Visit Nxh-Zqytj-Il/High 12/20/2018 Cupola Liner Helper Visit Maternal Medicine 12/24/2018 Hospital Encounter Obstetrics Inga Moore MD [address] [facility] [id number] [place] [address] [phone] 12/24/2018 Surgery Surgery Faculty, Ob SECTION [address] [place] [address] 12/27/2018 Cupola Liner Helper Visit Maternal Medicine 01/03/2019 Cupola Liner Helper Visit Maternal Inga Moore MD [address] [facility] [id number] [place] [address] [phone] Medicine 3, [facility] Usg Room Health Maintenance Due Date Last Done Comments PNEUMOCOCCAL 0-64 YEARS COMBINED SERIES (1 1990 of 1 - PPSV23) INFLUENZA VACCINE (#1) 2018 PAP SMEAR 05/29/2021 05/29/2018, 03/30/2004 DTaP,Tdap,and Td Vaccines (2 - Td) 10/15/2028 10/15/2018 documented as of this encounter Implants Implanted Type Area Trenching Machine Operator Device Shelf Model / Identifier Expiration Date Serial / Lot Nail T2 Ankle Arthrodesis [id number] Left [place] F & A #[id number] - S0 NAIL Left: Tamanna 09/14/2021 [id number] / Implanted: Qty: 1 on 03/03/2017 by Dewayne Felix MD at [facility] Ankle 0 / [id number] Pin, Tamanna Self-Drilling Half [place] 5mm 150 X 25mm #5017-8-150s PIN Left: Tamanna 08/15/2019 5017-8-150S / Implanted: Qty: 1 on 11/25/2016 by Dewayne Felix MD at [facility] Ankle 0000 / [id number] Hexapod Strut PIN Left: [place] 11/25/2026 4935-0-040 / Implanted: Qty: 2 on 11/25/2016 by Dewayne Felix MD at [facility] Ankle 0000 / 000 Pin, Tamanna Self-Drilling Half [place] 5mm 150 X 25mm #5017-8-150s PIN Left: [place] 07/15/2021 5017-8-150S / Implanted: Qty: 1 on 11/25/2016 by Dewayne Felix MD at [facility] Ankle 0000 / [id number] Pin, [place] Self-Drilling Half [place] 5mm 150 X 25mm #5017-8-150s PIN Left: [place] 04/16/2021 5017-8-150S / Implanted: Qty: 1 on 11/25/2016 by Dewayne Felix MD at [facility] Ankle 0000 / [id number] Pin, [place] Self-Drilling Half [place] 5mm 150 X 25mm #5017-8-150s PIN Left: [place] 04/16/2021 5017-8-150S / Implanted: Qty: 1 on 11/25/2016 by Dewayne Felix MD at [facility] Ankle 0000 / [id number] Pin, [place] Self-Drilling Half [place] 5mm 150 X 25mm #5017-8-150s PIN Left: [place] 07/15/2021 5017-8-150S / Implanted: Qty: 1 on 11/25/2016 by Dewayne Felix MD at [facility] Ankle 0000 / [id number] Wire [place] - Medium 1.5 To 2.0 Mm PIN Left: [place] 11/25/2026 4933-1- 002 / Implanted: Qty: 2 on 11/25/2016 by Dewayne Felix MD at [facility] Ankle 0000 / 0000 Wire [place] Adapter Short PIN Left: Tamanna 11/25/2026 4933-1-004 / Implanted: Qty: 2 on 11/25/2016 by Dewayne Felix MD at [facility] Ankle 0000 / 0000 [place] Pin Adaptor, Short 6mm # 4933-1-020 - S0000 PIN Left: [place] 2019 4933-1-020 / Implanted: Qty: 3 on 11/25/2016 by Dewayne Felix MD at [facility] Ankle 0000 / 0000 Hexapod Strut Medium PIN Left: [place] 4935-0-030 / Implanted: Qty: 6 on 11/25/2016 by Dewayne Felix MD at [facility] Ankle 0000 / 0000 Foot Arch RING Left: [place] 11/25/2026 4934-6-180 / Implanted: Qty: 1 on 11/25/2016 by Dewayne Felix MD at [facility] Ankle 0000 / 0000 Screw, [place] 5 X 30mm Fully Thrded Locking #1896-5030s - S0 SCREW Left: Tamanna 06/14/2021 1896-5030S / Implanted: Qty: 1 on 03/03/2017 by Dewayne Felix MD at [facility] Ankle 0 / [id number] Screw, Tamanna 5 X 50mm Fully Thrded Locking #1896-5050s - S0 SCREW Left: [place] 10/14/2020 1896-5050S / Implanted: Qty: 1 on 03/03/2017 by Dewayne Felix MD at [facility] Ankle 0 / [id number] Screw Headless Compression [id number] [place] #[id number] - S0 SCREW Left: Tamanna 03/03/2027 [id number] / Implanted: Qty: 1 on 03/03/2017 by Dewayne Felix MD at [facility] Ankle 0 / 0 K Wire [id number] WIRE Left: [place] 11/25/2026 5101-2-450 / Implanted: Qty: 2 on 11/25/2016 by Dewayne Felix MD at [facility] Ankle 0000 / 0000 Wire With [place] - Kathryn 2.0 X 450 Mm WIRE Left: [place] 11/25/2026 4933-8- 040 / Implanted: Qty: 2 on 11/25/2016 by Dewayne Felix MD at [facility] Ankle 0000 / 0000 [place] External Fixation 1.5mm-2mm Kathryn Short Carbon #4933-1-001 - S0000 Left: Tamanna 11/25/2026 4933-1-001 / Implanted: Qty: 4 on 11/25/2016 by Dewayne Felix MD at [facility] Ankle 0000 / 0000 [place] External Fixation Long Carbon 40mml Threaded #4933-1-021 - S0000 Left: Tamanna 11/25/2026 4933-1-021 / Implanted: Qty: 2 on 11/25/2016 by Dewayne Felix MD at [facility] Ankle 0000 / 0000 Set Ring External Fixation Full 180mm Id Carbon Holex5 F/Foot & Ankle Fixation #4933-5-180 - S0000 Left: [place] 11/25/2026 4933-5-180 / Implanted: Qty: 3 on 11/25/2016 by Dewayne Felix MD at [facility] Ankle 0000 / 0000 Ring External Fixation 180mm #4934-4-180 - S0000 Left: Tamanna 2026 4934-4-180 / Implanted: Qty: 1 on 11/25/2016 by Dewayne Felix MD at [facility] Ankle 0000 / 0000 Nut External Fixation 6mm Kathryn Short #4933-1-010 - S0000 Left: [place] 4933-1-010 / Implanted: Qty: 25 on 11/25/2016 by Dewayne Felix MD at [facility] Ankle 0000 / 0000 [place] External Fixation 6mm Kathryn Carbon #4933-1-702 - S000 Left: [place] 11/25/2026 4933-1-702 / Implanted: Qty: 14 on 11/25/2016 by Dewayne Felix MD at [facility] Ankle 000 / 0000 Washer External Fixation 4mm Kathryn Yellow #4933-1-712 - S0000 Left: [place] 11/25/2026 4933-1-712 / Implanted: Qty: 1 on 11/25/2016 by Dewayne Felix MD at [facility] Ankle 0000 / 0000 Screw, Fixos Headless Compression [id number] Tamanna #[id number] - S0 Left: [place] 03/03/2027 [id number] / Implanted: Qty: 1 on 03/03/2017 by Dewayne Felix MD at [facility] Ankle 0 / 0 documented as of this encounter Procedures Procedure Name Priority Date/Time Associated Diagnosis Comments NON-STRESS Routine 12/13/2018 2:28 PM Supervision of high Results for this TEST CDT risk in procedure are in third trimester the results section. documented in this encounter Results NON-STRESS TEST (12/13/2018 2:28 PM CDT) Specimen Narrative Performed At NST NOTE PACS 12/13/2018 2:28 PM GA: 36w4d Baseline: 130s Variability: Moderate Accels: + Decels: None [place]: Quiescent Assessment: Reactive and reassuring Plan: Repeat as scheduled Performing Organization Address City/State/Zipcode Phone Number PACS documented in this encounter Visit Diagnoses Diagnosis Supervision of high risk in third trimester - Primary Unspecified high-risk documented in this encounter Insurance Payer Benefit Plan / Subscriber ID Effective Dates Phone Address Type Group [facility] MEDICAID OF xxxxxxxxx 2018-Present [phone] [address] [place] [id number] [place] [phone] documented as of this encounter Advance Directives Name Relationship Healthcare Agent Communication Relationship Geovanny Boyd Mother Primary healthcare agent [phone]
--- OUTSIDE RECORDS SUMMARY | 2019-07-09 07:27 | XMS REPORT | Summary of Care ---
:1985 Author Organization [facility] - [facility] Address [address] [place] [address] Care Team Providers Name Role Phone Orthopedics, Tdc Unavailable Unavailable Jesse Woods MD Primary Care Provider Reason for Visit Reason Comments ULTRASOUND (Routine) Status Reason Specialty Diagnoses / Referred By Referred To Procedures Contact Contact Authorized OG-OBSTETRICS & Diagnoses Follow up hydrops [facility] GYNECOLOGY / Procedures CONSULT MATERNAL MEDICINE ULTRASOUND ULTRASOUND [address] Ultrasound-[facility] Maternal [address] [facility] Medicine [place], [place] Clinics [address] [address] Phone: Drive, 3rd Floor [phone] [place], [place] Fax: [phone] Encounter Details Date Type Department Care Team Description 12/13/2018 Wire Frame Dipper Visit [facility] Women's TeresaInga MD [address] [address] Maternal care for hydrops fetalis in third trimester, single or unspecified fetus; [facility] Jesse Woods MD [address] [address] Placental condition affecting management of mother, antepartum, third trimester [facility] Clinics 2, [facility] Usg Room [address], 3rd [place] [address] Allergies Active Allergy Reactions Severity [...] Overview: Notice of research participation in the ECCCO Trial: IRB # [id number]. PI- Modesto De [...] concerns, you may page the PRD at [phone]. Anemia of mother in , antepartum 11/19/2018 [...] Overview: Added automatically from request for surgery [id number] Cellulitis 12/30/2016 05/29/2018 Infection 12/29/2016 05/29/2018 Bleeding disorder 11/27/2016 05/29/2018 Pain 11/25/2016 05/29/2018 Bleeding 10/19/2016 05/29/2018 Pain, dental 10/11/2016 05/29/2018 Overview: Added automatically from request for surgery [id number] Infection of bone of left ankle 09/09/2016 [...] Team Description 12/18/2018 Routine OB Satellites 2, ShanRmchjayesh Nst Visit Ultrasound 12/18/2018 Routine OB Satellites Max Velarde, Visit PRINTED CIRCUIT BOARD PREASSEMBLER [address] [place] [address] [phone] 12/20/2018 Routine OB Satellites 1, Ad-Rmchp Nst Visit Ultrasound 12/20/2018 Routine OB Satellites Risk, Visit Osm-Kcpfn-Ph/High 12/20/2018 Wire Frame Dipper Visit Maternal Medicine 12/24/2018 Hospital Encounter Obstetrics Inga Moore MD 301 [facility] [id number] [place] [address]605 12/24/2018 Surgery Surgery Faculty, Ob SECTION [address] [place] [address] 12/27/2018 Wire Frame Dipper Visit Maternal Medicine 01/03/2019 Wire Frame Dipper Visit Maternal Inga Moore MD 301 [facility] [id number] [place], [place] [id number] Medicine 3, [facility] Usg Room Health Maintenance Due Date Last Done Comments PNEUMOCOCCAL 0-64 YEARS COMBINED SERIES (1 1990 of 1 - PPSV23) INFLUENZA VACCINE (#1) 2018 PAP SMEAR 05/29/2021 05/29/2018, 03/30/2004 DTaP,Tdap,and Td Vaccines (2 - Td) 10/15/2028 10/15/2018 documented as of this encounter Implants Implanted Type Area Technical Services Consultant Device Shelf Model / Identifier Expiration Date Serial / Lot Nail T2 Ankle Arthrodesis [id number] Left Tamanna F & A #[id number] - S0 NAIL Left: Tamanna 09/14/2021 [id number] / Implanted: Qty: 1 on 03/03/2017 by Dewayne Felix MD at [facility] Ankle 0 / [id number] Pin, Blanco Self-Drilling Half [place] 5mm 150 X 25mm #5017-8-150s PIN Left: Blanco 08/15/2019 5017-8-150S / Implanted: Qty: 1 on 11/25/2016 by Dewayne Felix MD at [facility] Ankle 0000 / [id number] Hexapod Strut PIN Left: Tamanna 11/25/2026 4935-0-040 / Implanted: Qty: 2 on 11/25/2016 by Dewayne Felix MD at [facility] Ankle 0000 / 000 Pin, Tamanna Self-Drilling Half [place] 5mm 150 X 25mm #5017-8-150s PIN Left: Blanco 07/15/2021 5017-8-150S / Implanted: Qty: 1 on 11/25/2016 by Dewayne Felix MD at [facility] Ankle 0000 / [id number] Pin, Blanco Self-Drilling Half [place] 5mm 150 X 25mm #5017-8-150s PIN Left: Blanco 04/16/2021 5017-8-150S / Implanted: Qty: 1 on 11/25/2016 by Dewayne Felix MD at [facility] Ankle 0000 / [id number] Pin, Blanco Self-Drilling Half [place] 5mm 150 X 25mm #5017-8-150s PIN Left: Blanco 04/16/2021 5017-8-150S / Implanted: Qty: 1 on 11/25/2016 by Dewayne Felix MD at [facility] Ankle 0000 / [id number] Pin, Tamanna Self-Drilling Half [place] 5mm 150 X 25mm #5017-8-150s PIN Left: Blanco 07/15/2021 5017-8-150S / Implanted: Qty: 1 on 11/25/2016 by Dewayne Felix MD at [facility] Ankle 0000 / [id number] Wire [place] - Medium 1.5 To 2.0 Mm PIN Left: Tamanna 11/25/2026 4933-1- 002 / Implanted: Qty: 2 on 11/25/2016 by Dewayne Felix MD at [facility] Ankle 0000 / 0000 Wire [place] Adapter Short PIN Left: Blanco 11/25/2026 4933-1-004 / Implanted: Qty: 2 on 11/25/2016 by Dewayne Felix MD at [facility] Ankle 0000 / 0000 [place] Pin Adaptor, Short 6mm # 4933-1-020 - S0000 PIN Left: Blanco 2019 4933-1-020 / Implanted: Qty: 3 on 11/25/2016 by Dewayne Felix MD at [facility] Ankle 0000 / 0000 Hexapod Strut Medium PIN Left: Blanco 4935-0-030 / Implanted: Qty: 6 on 11/25/2016 by Dewayne Felix MD at [facility] Ankle 0000 / 0000 Foot Arch RING Left: Tamanna 11/25/2026 4934-6-180 / Implanted: Qty: 1 on 11/25/2016 by Dewayne Felix MD at [facility] Ankle 0000 / 0000 Screw, Blanco 5 X 30mm Fully Thrded Locking #1896-5030s - S0 SCREW Left: Tamanna 06/14/2021 1896-5030S / Implanted: Qty: 1 on 03/03/2017 by Dewayne Felix MD at [facility] Ankle 0 / [id number] Screw, Tamanna 5 X 50mm Fully Thrded Locking #1896-5050s - S0 SCREW Left: Tamanna 10/14/2020 1896-5050S / Implanted: Qty: 1 on 03/03/2017 by Dewayne Felix MD at [facility] Ankle 0 / [id number] Screw Headless Compression [id number] Tamanna #[id number] - S0 SCREW Left: Blanco 03/03/2027 [id number] / Implanted: Qty: 1 on 03/03/2017 by Dewayne Felix MD at [facility] Ankle 0 / 0 K Wire [id number] WIRE Left: Tamanna 11/25/2026 5101-2-450 / Implanted: Qty: 2 on 11/25/2016 by Dewayne Felix MD at [facility] Ankle 0000 / 0000 Wire With [place] - Kathryn 2.0 X 450 Mm WIRE Left: Tamanna 11/25/2026 4933-8- 040 / Implanted: Qty: 2 on 11/25/2016 by Dewayne Felix MD at [facility] Ankle 0000 / 0000 [place] External Fixation 1.5mm-2mm Kathryn Short Carbon #4933-1-001 - S0000 Left: Tamanna 11/25/2026 4933-1-001 / Implanted: Qty: 4 on 11/25/2016 by Dewayne Felix MD at [facility] Ankle 0000 / 0000 [place] External Fixation Long Carbon 40mml Threaded #4933-1-021 - S0000 Left: Blanco 11/25/2026 4933-1-021 / Implanted: Qty: 2 on 11/25/2016 by Dewayne Felix MD at [facility] Ankle 0000 / 0000 Set Ring External Fixation Full 180mm Id Carbon Holex5 F/Foot & Ankle Fixation #4933-5-180 - S0000 Left: Blanco 11/25/2026 4933-5-180 / Implanted: Qty: 3 on 11/25/2016 by Dewayne Felix MD at [facility] Ankle 0000 / 0000 Ring External Fixation 180mm #4934-4-180 - S0000 Left: Tamanna 2026 4934-4-180 / Implanted: Qty: 1 on 11/25/2016 by Dewayne Felix MD at [facility] Ankle 0000 / 0000 Nut External Fixation 6mm Kathryn Short #4933-1-010 - S0000 Left: Tamanna 4933-1-010 / Implanted: Qty: 25 on 11/25/2016 by Dewayne Felix MD at [facility] Ankle 0000 / 0000 [place] External Fixation 6mm Kathryn Carbon #4933-1-702 - S000 Left: Tamanna 11/25/2026 4933-1-702 / Implanted: Qty: 14 on 11/25/2016 by Dewayne Felix MD at [facility] Ankle 000 / 0000 Washer External Fixation 4mm Kathryn Yellow #4933-1-712 - S0000 Left: Blanco 11/25/2026 4933-1-712 / Implanted: Qty: 1 on 11/25/2016 by Dewayne Felix MD at [facility] Ankle 0000 / 0000 Screw, Fixos Headless Compression [id number] Blanco #[id number] - S0 Left: Tamanna 03/03/2027 [id number] / Implanted: Qty: 1 on 03/03/2017 by Dewayne Felix MD at [facility] Ankle 0 / 0 documented as of this encounter Procedures Procedure Name Priority Date/Time Associated Diagnosis Comments SECOND AND THIRD Routine 12/13/2018 1:14 PM TRIMESTER ULTRASOUND CDT documented in this encounter Results SECOND AND THIRD TRIMESTER ULTRASOUND (12/13/2018 1:14 PM CDT) Specimen documented in this encounter Visit Diagnoses Diagnosis Maternal care for hydrops fetalis in third trimester, single or unspecified fetus Placental condition affecting management of mother, antepartum, third trimester documented in this encounter Insurance Payer Benefit Plan / Subscriber ID Effective Dates Phone Address Type Group [facility] MEDICAID OF xxxxxxxxx 2018-Present [phone] [address] Medicaid [address] [address] (Home) [place] [address] documented as of this encounter Advance Directives Name Relationship Healthcare Agent Communication Relationship Geovanny Boyd Mother Primary healthcare agent [phone]
--- OUTSIDE RECORDS SUMMARY | 2019-07-09 07:27 | XMS REPORT | Summary of Care ---
:1985 Author Organization [facility] - Health Address [address] [place] [address] Care Team Providers Name Role Phone Orthopedics, Tdc Unavailable Unavailable Jesse Woods MD Primary Care Provider Encounter Details Date Type Department Care Team Description 12/13/2018 Orders Only [facility] Doctor Unassigned, No 301 [facility] [place] [address] [address] [place] [address] Allergies Active Allergy Reactions Severity Noted Date [...] of 12/13/2018) Active Problems Problem Noted Date Anemia of [...] Overview: Added automatically from request for surgery [id number] Cellulitis 12/30/2016 05/29/2018 Infection 12/29/2016 05/29/2018 Bleeding disorder 11/27/2016 05/29/2018 Pain 11/25/2016 05/29/2018 Bleeding 10/19/2016 05/29/2018 Pain, dental 10/11/2016 05/29/2018 Overview: Added automatically from request for surgery [id number] Infection of bone of left ankle 09/09/2016 [...] Date Type Specialty Care Team Description 12/13/2018 Routine OB Satellites Inga Moore MD [address] [id number] Visit Jesse Woods MD [address] [id number] Chacorta Clark MD [address] [place] [address] [place] [address] Nst Ultrasound 12/13/2018 Routine OB Satellites Inga Moore MD [address] [id number] Visit Jesse Woods MD [address] [id number] David [facility] Resident 12/18/2018 Routine OB Satellites 2, [facility] Nst Visit Ultrasound 12/18/2018 Routine OB Satellites Max Velarde, Visit NET TRAINER [address] [place] [address] [phone] 12/20/2018 Routine OB Satellites 1, [facility] Nst Visit Ultrasound 12/20/2018 Routine OB Satellites Risk, Visit Jpg-Wfldb-Ae/High 12/20/2018 Fish Rod Maker Visit Maternal Medicine 12/24/2018 Hospital Encounter Obstetrics Inga Moore MD [id number] [place] [address], [place] [address] 12/24/2018 Surgery Surgery Faculty, Ob SECTION [address] [place] [address] 12/27/2018 Fish Rod Maker Visit Maternal Medicine 01/03/2019 Fish Rod Maker Visit Maternal Inga Moore MD [id number] [place] [address], [place] [phone] [place] [address], [facility] Usg Room Health Maintenance Due Date Last Done Comments PNEUMOCOCCAL 0-64 YEARS COMBINED SERIES (1 1990 of 1 - PPSV23) INFLUENZA VACCINE (#1) 2018 PAP SMEAR 05/29/2021 05/29/2018, 03/30/2004 DTaP,Tdap,and Td Vaccines (2 - Td) 10/15/2028 10/15/2018 documented as of this encounter Implants Implanted Type Area Turpentine Farmer Device Shelf Model / Identifier Expiration Date Serial / Lot Nail T2 Ankle Arthrodesis [id number] Left Tamanna F & A #[id number] - S0 NAIL Left: Tamanna 09/14/2021 [id number] / Implanted: Qty: 1 on 03/03/2017 by Dewayne Felix MD at [facility] Ankle 0 / [id number] Pin, Tamanna Self-Drilling Half [place] Stone 5mm 150 X 25mm #5017-8-150s PIN Left: Gilbert 08/15/2019 5017-8-150S / Implanted: Qty: 1 on 11/25/2016 by Dewayne Felix MD at [facility] Ankle 0000 / [id number] Hexapod Strut PIN Left: Gilbert 11/25/2026 4935-0-040 / Implanted: Qty: 2 on 11/25/2016 by Dewayne Felix MD at [facility] Ankle 0000 / 000 Pin, Tamanna Self-Drilling Half White Stone 5mm 150 X 25mm #5017-8-150s PIN Left: Gilbert 07/15/2021 5017-8-150S / Implanted: Qty: 1 on 11/25/2016 by Dewayne Felix MD at [facility] Ankle 0000 / [id number] Pin, Gilbert Self-Drilling Half White Stone 5mm 150 X 25mm #5017-8-150s PIN Left: Tamanna 04/16/2021 5017-8-150S / Implanted: Qty: 1 on 11/25/2016 by Dewayne Felix MD at [facility] Ankle 0000 / [id number] Pin, Gilbert Self-Drilling Half White Stone 5mm 150 X 25mm #5017-8-150s PIN Left: Tamanna 04/16/2021 5017-8-150S / Implanted: Qty: 1 on 11/25/2016 by Dewayne Felix MD at [facility] Ankle 0000 / [id number] Pin, Gilbert Self-Drilling Half White Stone 5mm 150 X 25mm #5017-8-150s PIN Left: Tamanna 07/15/2021 5017-8-150S / Implanted: Qty: 1 on 11/25/2016 by Dewayne Felix MD at [facility] Ankle 0000 / [id number] Wire Centerpoint - Medium 1.5 To 2.0 Mm PIN Left: Gilbert 11/25/2026 4933-1- 002 / Implanted: Qty: 2 on 11/25/2016 by Dewayne Felix MD at [facility] Ankle 0000 / 0000 Wire Centerpoint Adapter Short PIN Left: Tamanna 11/25/2026 4933-1-004 / Implanted: Qty: 2 on 11/25/2016 by Dewayne Felix MD at [facility] Ankle 0000 / 0000 White Stone Pin Adaptor, Short 6mm # 4933-1-020 - S0000 PIN Left: Tamanna 2019 4933-1-020 / Implanted: Qty: 3 on 11/25/2016 by Dewayne Felix MD at [facility] Ankle 0000 / 0000 Hexapod Strut Medium PIN Left: Gilbert 4935-0-030 / Implanted: Qty: 6 on 11/25/2016 by Dewayne Felix MD at [facility] Ankle 0000 / 0000 Foot Arch RING Left: Gilbert 11/25/2026 4934-6-180 / Implanted: Qty: 1 on 11/25/2016 by Dewayne Felix MD at [facility] Ankle 0000 / 0000 Screw, Gilbert 5 X 30mm Fully Thrded Locking #1896-5030s - S0 SCREW Left: Tamanna 06/14/2021 1896-5030S / Implanted: Qty: 1 on 03/03/2017 by Dewayne Felix MD at [facility] Ankle 0 / [id number] Screw, Gilbert 5 X 50mm Fully Thrded Locking #1896-5050s - S0 SCREW Left: Gilbert 10/14/2020 1896-5050S / Implanted: Qty: 1 on 03/03/2017 by Dewayne Felix MD at [facility] Ankle 0 / [id number] Screw Headless Compression [id number] Gilbert #[id number] - S0 SCREW Left: Gilbert 03/03/2027 [id number] / Implanted: Qty: 1 on 03/03/2017 by Dewayne Felix MD at [facility] Ankle 0 / 0 K Wire [id number] WIRE Left: Tamanna 11/25/2026 5101-2-450 / Implanted: Qty: 2 on 11/25/2016 by Dewayne Felix MD at [facility] Ankle 0000 / 0000 Wire With [place] - Kathryn 2.0 X 450 Mm WIRE Left: Tamanna 11/25/2026 4933-8- 040 / Implanted: Qty: 2 on 11/25/2016 by Dewayne Felix MD at [facility] Ankle 0000 / 0000 Centerpoint External Fixation 1.5mm-2mm Kathryn Short Carbon #4933-1-001 - S0000 Left: Tamanna 11/25/2026 4933-1-001 / Implanted: Qty: 4 on 11/25/2016 by Dewayne Felix MD at [facility] Ankle 0000 / 0000 Centerpoint External Fixation Long Carbon 40mml Threaded #4933-1-021 - S0000 Left: Tamanna 11/25/2026 4933-1-021 / Implanted: Qty: 2 on 11/25/2016 by Dewayne Felix MD at [facility] Ankle 0000 / 0000 Set Ring External Fixation Full 180mm Id Carbon Holex5 F/Foot & Ankle Fixation #4933-5-180 - S0000 Left: Tamanna 11/25/2026 4933-5-180 / Implanted: Qty: 3 on 11/25/2016 by Dewayne Felix MD at [facility] Ankle 0000 / 0000 Ring External Fixation 180mm #4934-4-180 - S0000 Left: Gilbert 2026 4934-4-180 / Implanted: Qty: 1 on 11/25/2016 by Dewayne Felix MD at [facility] Ankle 0000 / 0000 Nut External Fixation 6mm Kathryn Short #4933-1-010 - S0000 Left: Gilbert 4933-1-010 / Implanted: Qty: 25 on 11/25/2016 by Dewayne Felix MD at [facility] Ankle 0000 / 0000 Centerpoint External Fixation 6mm Kathryn Carbon #4933-1-702 - S000 Left: Gilbert 11/25/2026 4933-1-702 / Implanted: Qty: 14 on 11/25/2016 by Dewayne Felix MD at [facility] Ankle 000 / 0000 Washer External Fixation 4mm Kathryn Yellow #4933-1-712 - S0000 Left: Tamanna 11/25/2026 4933-1-712 / Implanted: Qty: 1 on 11/25/2016 by Dewayne Felix MD at [facility] Ankle 0000 / 0000 Screw, Fixos Headless Compression [id number] Gilbert #[id number] - S0 Left: Gilbert 03/03/2027 [id number] / Implanted: Qty: 1 on 03/03/2017 by Dewayne Felix MD at [facility] Ankle 0 / 0 documented as of this encounter Procedures Procedure Name Priority Date/Time Associated Diagnosis Comments NO SHOW OR MISSED Routine 12/13/2018 1:26 PM APPOINTMENT POLICY CDT ACKNOWLEDGEMENT documented in this encounter Results Not on filedocumented in this encounter Insurance Payer Benefit Plan / Subscriber ID Effective Dates Phone Address Type Group TMHP MEDICAID OF xxxxxxxxx 2018-Present [phone] [address] [place] [id number] [place] [phone] documented as of this encounter Advance Directives Name Relationship Healthcare Agent Communication Relationship Geovanny Boyd Mother Primary healthcare agent [phone]
--- OUTSIDE RECORDS SUMMARY | 2019-07-09 07:28 | XMS REPORT | Summary of Care ---
:1985 Author Organization [facility] Address [address] [place] [address] Care Team Providers Name Role Phone Orthopedics, Tdc Unavailable Unavailable Max Velarde Primary Care Provider Reason for Visit Reason Comments MFM Visit NON-STRESS TEST Encounter Details Date Type Department Care Team Description 12/20/2018 Routine [facility]- Mila Ferguson [address] [place], [place] [phone] Placental cyst complicating in third trimester ( Primary Dx); Visit Ad Schmitt-Rmchp-Np/High High risk , antepartum; [address] History of section; [place], [place] Glanzmann's thrombosthenin disorder; [address] Chronic hepatitis C without hepatic coma; [phone] Multiparity; Rubella non-immune status, antepartum; Anemia of mother in , antepartum Allergies Active Allergy Reactions Severity Noted Date Comments Aspirin Unknown - See comments 12/24/2009 Unable to take d/t clotting disorder. 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 Bishop (cell [phone]) - Notify Pharamacy for Nova7 to be mixed - Notify Pedi - Call Lab [facility] to callibrate TEG machine (will take 1h to calibrate) - Plan to give 2 packs of PLT, Novo7 30 min prior to CD 90 mcg/kg and TXA prior to insicion. -as per Geraldo. -One unit of Cryo intraop as sealant - After delivery do q4h TEG to assess furhther need for PLT or Nova7 - If she will require additional doses of Nova7, it is available in the Pharmacy, need to call Anemia - H/H 32.8 -S/p x 2 IV iron infusions - Hematology is followign - On B12 supplement HCV - Viral load 5.4 million IU/mlComme History of x 2 (GETA) +1 - 2008 - 2006 - Desires BTL Problem Noted Date Research study patient: ECCCO: Group C 12/13/2018 Overview: Notice of research participation in the [facility] Trial: IRB # [id number]. PI- Modesto De [...] concerns, you may page the PRD at [phone]. 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 Chronic hepatitis C without hepatic coma 08/08/2016 Estimated Date of Delivery Comments Yes 01/06/2019 Based on last menstrual period of 04/01/2018 (Exact Date) documented as of this encounter (statuses as of 12/20/2018) Resolved Problems Problem Noted Date Resolved Date Threatened 11/22/2018 11/22/2018 Anemia of mother in , antepartum 08/02/2018 10/09/2018 Nausea and vomiting during 06/26/2018 10/09/2018 Headache in 06/26/2018 10/09/2018 Susceptible to varicella (non-immune), currently 05/30/20182018 Overview: Address pp Surgery, elective 02/02/2017 05/29/2018 Ankle fracture, bimalleolar, closed, left, sequela 02/02/2017 10/09/2018 Overview: Added automatically from request for surgery [id number] Cellulitis 12/30/2016 05/29/2018 Infection 12/29/2016 05/29/2018 Bleeding disorder 11/27/2016 05/29/2018 Pain 11/25/2016 05/29/2018 Bleeding 10/19/2016 05/29/2018 Pain, dental 10/11/2016 05/29/2018 Overview: Added automatically from request for surgery [id number] Infection of bone of left ankle 09/09/2016 10/09/2018 Obesity in 09/08/2016 11/19/2018 Unspecified dental caries 08/08/2016 05/29/2018 Tooth pain 08/08/2016 05/29/2018 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 06/05/2016 11/03/2016 Anemia 05/21/2016 05/29/2018 documented as of this encounter (statuses as of 12/20/2018) Immunizations Name Administration Dates Next Due TDAP [...] Sign Reading Time Taken Comments Blood Pressure 113/72 12/20/2018 10:34 AM CDT Pulse 90 12/20/2018 10:34 AM CDT Temperature 36.8 C (98.2 F) 12/20/2018 10:34 AM CDT Respiratory Rate 16 12/20/2018 10:34 AM CDT Oxygen Saturation - - Inhaled Oxygen Concentration - - Weight 108.6 kg (239 lb 8 oz) 12/20/2018 10:34 AM CDT Height - - Body Mass Index 39.85 12/18/2018 12:58 PM CDT documented in this encounter Progress Notes Mila Ferguson - 12/20/2018 10:30 AM CDT Chief complaint: Chief Complaint Patient presents with [facility] Visit NON-STRESS TEST HPI rBi Boyd is a 33 year old HF who is 37w4d with IUP. Her , by Last Menstrual Period. Denies headache,n/v, visual changes, sob, cp , ruq pain, bleeding,lof and ctxs. Has +FM. 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 Review of Systems See HPI BP 113/72 | Pulse 90 | Temp 36.8 C (98.2 F) | Resp 16 | Wt 239 lb 8 oz ( 108.6 kg) | LMP 04/01/2018 (Exact Date) | BMI 39.85 kg/m Pregravid BMI: 39.3 Physical Exam CONSTITUTIONAL: no apparent distress, appearing age-appropriate. GASTROINTESTINAL: abdomen soft, nontender, . NEUROLOGICAL/PSYCHIATRIC: alert, awake, and oriented x 3. Normal mood and affect. EXTREMITIES: No calf tenderness bilaterally.no pitting edema bilaterally. Musculoskeletal: no clubbing, cyanosis or edema, peripheral pulses 2+ in all extremities NST cat I Assessment/Plan at 37w4d 1. Glanzmann's thrombastheniadisorder Patient reports she was [...] history of allergy to IV iron, but harjeete reports she can haveIV irondextran. Currently denies [...] for placental mass (hydrops eval). Dr. Bishop ([facility] blood bank) is following.Has 44 platelet abs. Dario is trying to find platelets vs plasmapharesis prior to delivery. Waiting to hear their recommendation. RCD scheduled for12/24 2U platelets, novoseven, TXA, uterotonics , GETA. Multidisciplinary conference this week to decide about appropriate therapy at and after delivery 2. TwopriorCD Under GETA, complicated by intra-op bleeding requiring transfusions.Saw anesthesia at [facility] on 09/19.For RCD12/24/18. 3.Multiparity Pt declines BTL. 4.Chronic hepatitis C without hepatic coma. Nl LFT. Viral load5.4 million IU/ml. States acquired via blood transfusion. Counseled on risk of transmission to fetuspreviously. 5. Placental mass Twice weekly NSTs and weekly hydrops checks. Last growth 11/14 was wnl. Mass stable at 11-12cm. Usg weekly - last with nml JILLIAN/nml doppler NST today reactive and reassuring 6. Anemia HGB Date Value 12/06/2018 10.3 g/dL (L) 12/24/2009 9.2 G/DL (L) S/p Tx with IV iron at MDA6/10 and 11. Labor warnings/kick count instructions given. This visit did not involve counseling and coordination that comprised more than 50% of the visit time. documented in this encounter Plan of Treatment Date Type Specialty Care Team Description 12/20/2018 Cocoa Room Operator Visit Maternal FergusonMila mckinley Soraida [address] [place], [place] [address] Arrived Medicine Jesse Woods MD [address] [phone] 12/20/2018 Ancillary Procedure OB Satellites Liliana Fergusondy Soraida Arrived [address] [place], [place] [address] 12/24/2018 Hospital Encounter Obstetrics Inga Moore MD [id number] [place] [id number] 12/24/2018 Surgery Surgery Faculty, Ob SECTION [address] [place] [address] 12/27/2018 Cocoa Room Operator Visit Maternal Medicine 01/03/2019 Cocoa Room Operator Visit Maternal Inga Moore MD [address] [phone] Medicine , [facility] Usg Room Health Maintenance Due Date Last Done Comments PNEUMOCOCCAL 0-64 YEARS COMBINED SERIES (1 1990 of 1 - PPSV23) INFLUENZA VACCINE (#1) 2018 PAP SMEAR 05/29/2021 05/29/2018, 03/30/2004 DTaP,Tdap,and Td Vaccines (2 - Td) 10/15/2028 10/15/2018 documented as of this encounter Implants Implanted Type Area Policy Officer Device Shelf Model / Identifier Expiration Date Serial / Lot Nail T2 Ankle Arthrodesis [id number] Left Tamanna F & A #[id number] - S0 NAIL Left: [place] 09/14/2021 [id number] / Implanted: Qty: 1 on 03/03/2017 by Dewayne Felix MD at [facility] Ankle 0 / [id number] Pin, Tamanna Self-Drilling Half [place] 5mm 150 X 25mm #5017-8-150s PIN Left: Tamanna 08/15/2019 5017-8-150S / Implanted: Qty: 1 on 11/25/2016 by Dewayne Felix MD at [facility] Ankle 0000 / [id number] Hexapod Strut PIN Left: [place] 11/25/2026 4935-0-040 / Implanted: Qty: 2 on 11/25/2016 by Dewayne Felix MD at [facility] Ankle 0000 / 000 Pin, Tamanna Self-Drilling Half [place] 5mm 150 X 25mm #5017-8-150s PIN Left: Tamanna 07/15/2021 5017-8-150S / Implanted: Qty: 1 on 11/25/2016 by Dewayne Felix MD at [facility] Ankle 0000 / [id number] Pin, [place] Self-Drilling Half [place] 5mm 150 X 25mm #5017-8-150s PIN Left: Tamanna 04/16/2021 5017-8-150S / Implanted: Qty: 1 on 11/25/2016 by Dewayne Felix MD at [facility] Ankle 0000 / [id number] Pin, [place] Self-Drilling Half Hood 5mm 150 X 25mm #5017-8-150s PIN Left: Tamanna 04/16/2021 5017-8-150S / Implanted: Qty: 1 on 11/25/2016 by Dewayne Felix MD at [facility] Ankle 0000 / [id number] Pin, Tamanna Self-Drilling Half Hood 5mm 150 X 25mm #5017-8-150s PIN Left: Tamanna 07/15/2021 5017-8-150S / Implanted: Qty: 1 on 11/25/2016 by Dewayne Felix MD at [facility] Ankle 0000 / [id number] Wire [place] - Medium 1.5 To 2.0 Mm PIN Left: [place] 11/25/2026 4933-1- 002 / Implanted: Qty: 2 on 11/25/2016 by Dewayne Felix MD at [facility] Ankle 0000 / 0000 Wire [place] Adapter Short PIN Left: Tamanna 11/25/2026 4933-1-004 / Implanted: Qty: 2 on 11/25/2016 by Dewayne Felix MD at [facility] Ankle 0000 / 0000 Hood Pin Adaptor, Short 6mm # 4933-1-020 - S0000 PIN Left: Tamanna 2019 4933-1-020 / Implanted: Qty: 3 on 11/25/2016 by Dewayne Felix MD at [facility] Ankle 0000 / 0000 Hexapod Strut Medium PIN Left: Tamanna 4935-0-030 / Implanted: Qty: 6 on 11/25/2016 by Dewayne Felix MD at [facility] Ankle 0000 / 0000 Foot Arch RING Left: [place] 11/25/2026 4934-6-180 / Implanted: Qty: 1 on 11/25/2016 by Dewayne Felix MD at [facility] Ankle 0000 / 0000 Screw, Tamanna 5 X 30mm Fully Thrded Locking #1896-5030s - S0 SCREW Left: Tamanna 06/14/2021 1896-5030S / Implanted: Qty: 1 on 03/03/2017 by Dewayne Felix MD at [facility] Ankle 0 / [id number] Screw, [place] 5 X 50mm Fully Thrded Locking #1896-5050s - S0 SCREW Left: [place] 10/14/2020 1896-5050S / Implanted: Qty: 1 on 03/03/2017 by Dewayne Felix MD at [facility] Ankle 0 / [id number] Screw Headless Compression [id number] Tamanna #[id number] - S0 SCREW Left: Tamanna 03/03/2027 [id number] / Implanted: Qty: 1 on 03/03/2017 by Dewayne Felix MD at [facility] Ankle 0 / 0 K Wire [id number] WIRE Left: [place] 11/25/2026 5101-2-450 / Implanted: Qty: 2 on 11/25/2016 by Dewayne Felix MD at [facility] Ankle 0000 / 0000 Wire With [place] - Kathryn 2.0 X 450 Mm WIRE Left: Tamanna 11/25/2026 4933-8- 040 / Implanted: Qty: 2 on 11/25/2016 by Dewayne Felix MD at [facility] Ankle 0000 / 0000 [place] External Fixation 1.5mm-2mm Kathryn Short Carbon #4933-1-001 - S0000 Left: [place] 11/25/2026 4933-1-001 / Implanted: Qty: 4 on 11/25/2016 by Dewayne Felix MD at [facility] Ankle 0000 / 0000 [place] External Fixation Long Carbon 40mml Threaded #4933-1-021 - S0000 Left: [place] 11/25/2026 4933-1-021 / Implanted: Qty: 2 on 11/25/2016 by Dewayne Felix MD at [facility] Ankle 0000 / 0000 Set Ring External Fixation Full 180mm Id Carbon Holex5 F/Foot & Ankle Fixation #4933-5-180 - S0000 Left: Tamanna 11/25/2026 4933-5-180 / Implanted: Qty: 3 on 11/25/2016 by Dewayne Felix MD at [facility] Ankle 0000 / 0000 Ring External Fixation 180mm #4934-4-180 - S0000 Left: [place] 2026 4934-4-180 / Implanted: Qty: 1 on 11/25/2016 by Dewayne Felix MD at [facility] Ankle 0000 / 0000 Nut External Fixation 6mm Kathryn Short #4933-1-010 - S0000 Left: Tamanna 4933-1-010 / Implanted: Qty: 25 on 11/25/2016 by Dewayne Felix MD at [facility] Ankle 0000 / 0000 [place] External Fixation 6mm Kathryn Carbon #4933-1-702 - S000 Left: Tamanna 11/25/2026 4933-1-702 / Implanted: Qty: 14 on 11/25/2016 by Dewayne Felix MD at [facility] Ankle 000 / 0000 Washer External Fixation 4mm Kathryn Yellow #4933-1-712 - S0000 Left: [place] 11/25/2026 4933-1-712 / Implanted: Qty: 1 on 11/25/2016 by Dewayne Felix MD at [facility] Ankle 0000 / 0000 Screw, Fixos Headless Compression 7.3t619xh Tamanna #[id number] - S0 Left: Tamanna 03/03/2027 [id number] / Implanted: Qty: 1 on 03/03/2017 by Dewayne Felix MD at [facility] Ankle 0 / 0 documented as of this encounter Procedures Procedure Name Priority Date/Time Associated Diagnosis Comments NON-STRESS Routine 12/20/2018 11:12 Placental cyst Results for this TEST AM CDT complicating procedure are in in third the results trimester section. POCT URINALYSIS Routine 12/20/2018 10:39 High risk , Results for this AM CDT antepartum procedure are in the results section. documented in this encounter Results NON-STRESS TEST (12/20/2018 11:12 AM CDT) Specimen Narrative Performed At Cat I PACS Performing Organization Address City/State/Zipcode Phone Number PACS POCT URINALYSIS W SPECIFIC GRAVITY (12/20/2018 10:39 AM CDT) POCT U SP GRAV . 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 Chronic hepatitis C without hepatic coma Multiparity Rubella non-immune status, antepartum Other specified complication, antepartum Anemia of mother in , antepartum Anemia, antepartum documented in this encounter Insurance Payer Benefit Plan / Subscriber ID Effective Dates Phone Address Type Group TMHP MEDICAID OF xxxxxxxxx 2018-Present [phone] [address] Medicaid [place] [id number] [place] [phone] (Home) [place] [address] documented as of this encounter Advance Directives Name Relationship Healthcare Agent Communication Relationship Geovanny Boyd Mother Primary healthcare agent [email or web address]
--- OUTSIDE RECORDS SUMMARY | 2019-07-09 07:28 | XMS REPORT | Summary of Care ---
:1985 Author Organization [facility] Address [address] [place] [address] Care Team Providers Name Role Phone Orthopedics, Tdc Unavailable Unavailable Jesse Woods MD Primary Care Provider Reason for Visit Reason Comments Care NON-STRESS TEST Encounter Details Date Type Department Care Team Description 12/18/2018 Routine [facility]- Max Velarde High risk , antepartum (Primary Dx); Visit Jessica RKODI History of section; [address] [place] [address] Glanzmann's thrombosthenin disorder; [place]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 Bishop (cell [phone]) - Notify Pharamacy for Nova7 to be [...] Pharmacy, need to call Anemia - H/H 10/32.8 -S/p x 2 IV iron infusions - Hematology is followign - On B12 supplement HCV - Viral load 5.4 million IU/mlComme History of x 2 (GETA) +1 - 2008 - 2006 - Desires BTL Problem Noted Date [facility]13/2018 Overview: Notice of research participation in the BANNER Trial: IRB # [id number]. PI- Modesto De [...] concerns, you may page the PRD at [phone]. Anemia of mother in , antepartum 11/19/2018 [...] as of this encounter (statuses as of 12/18/2018) Resolved Problems Problem Noted Date Resolved Date Threatened 11/22/2018 11/22/2018 Anemia of mother in , antepartum 08/02/2018 10/09/2018 Nausea and vomiting during 06/26/2018 10/09/2018 Headache in 06/26/2018 10/09/2018 Susceptible to varicella (non-immune), currently 05/30/20182018 Overview: Address pp Surgery, elective 02/02/2017 05/29/2018 Ankle fracture, bimalleolar, closed, left, sequela 02/02/2017 10/09/2018 Overview: Added automatically from request for surgery [id number] Cellulitis 12/30/2016 05/29/2018 Infection 12/29/2016 05/29/2018 Bleeding disorder 11/27/2016 05/29/2018 Pain 11/25/2016 05/29/2018 Bleeding 10/19/2016 05/29/2018 Pain, dental 10/11/2016 05/29/2018 Overview: Added automatically from request for surgery [id number] Infection of bone of left ankle 09/09/2016 10/09/2018 Obesity in 09/08/2016 11/19/2018 Unspecified dental caries 08/08/2016 05/29/2018 Tooth pain 08/08/2016 05/29/2018 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 06/05/2016 11/03/2016 Anemia 05/21/2016 05/29/2018 documented as of this encounter (statuses as of 12/18/2018) Immunizations Name Administration Dates Next Due TDAP [...] Sign Reading Time Taken Comments Blood Pressure 119/70 12/18/2018 12:58 PM CDT Pulse 80 12/18/2018 12:58 PM CDT Temperature 36.8 C (98.2 F) 12/18/2018 12:58 PM CDT Respiratory Rate 16 12/18/2018 12:58 PM CDT Oxygen Saturation - - Inhaled Oxygen Concentration - - Weight 109.4 kg (241 lb 4 oz) 12/18/2018 12:58 PM CDT Height 165.1 cm (5' 5") 12/18/2018 12:58 PM CDT Body Mass Index 40.15 12/18/2018 12:58 PM CDT documented in this encounter Progress Notes Max Velarde, KODI - 12/18/2018 1:00 PM CDT Chief complaint: Chief Complaint Patient presents with Care NON-STRESS TEST HPI CC: Follow Up Visit Bri Boyd is a 33 year old, , /White female. Patient 's last menstrual period was 04/01/2018 (exact date). She is 37w2d with an intrauterine . Her estimated date of delivery is 01/06/2019, by Last Menstrual Period. She has no complaints today. She reports +FM and denies contractions, LOF and bleeding today. Patient denies current or past physical, sexual or emotional abuse. 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[facility], requires multiple platelets and PRBC transfusions, frequent [...] Left 02/17/2017 Surgeon: Dewayne Felix MD; Location: [facility] [place] SURGICAL EXTRACTION - ERUPTED TEETH 10/19/2016 TIBIOCALCANEAL ARTHRODESIS Left 03/03/2017 Surgeon: Dewayne Felix MD; Location: [facility] [place] TOOTH EXTRACTION TOOTH EXTRACTION N/A 10/19/2016 Surgeon: Jus Tinoco; Location: [facility] OR [facility] Social History Socioeconomic History Marital status: Single Spouse name: Not on file Number of children: Not on file Years of education: Not on file Highest education level: Not on file Occupational History 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 Review of Systems Eyes: Negative for visual disturbance. Cardiovascular: Negative for leg swelling. Gastrointestinal: Negative for abdominal pain, nausea and vomiting. Genitourinary: Negative for vaginal bleeding, vaginal discharge and pelvic pain. Neurological: Negative for headaches. BP 119/70 (BP Location: Right arm, Patient Position: Sitting, BP CUFF SIZE: Adult Small) | Pulse 80 | Temp 36.8 C (98.2 F) (Oral) | Resp 16 | Ht 5' 5 " (1.651 m) | Wt 241 lb 4 oz (109.4 kg) | LMP 04/01/2018 (Exact Date) | BMI 40.15 kg/m Pregravid BMI: 39.3 Physical Exam PHYSICAL: General Exam: Neurological: Normal Abdomen: Normal Extremities: Normal Pelvic Exam: Uterus: 38cm Weeks Assessment/Plan High risk , antepartum (primary encounter diagnosis) History of section Multiparity Comment: Routine Visit Plan: POCT URINALYSIS W SPECIFIC GRAVITY, POCT URINALYSIS W SPECIFIC GRAVITY Denies zika virus risk, signs and symptoms such as fever,rash,joint pain, conjunctivitis (red eyes), muscle pain, headaches; outside [place] travel to areas affected by zika, and FOB exposure to zika.Educated on use of mosquito repellent. Glanzmann's thrombosthenin disorder Comment: Patient reports Product Mgr desires to have blood transfusion before C -Section. Patient states he is trying to coordinate plan of care now. Plan: NON-STRESS TEST Anemia of mother in , antepartum Comment: on Iron pills Plan: will continue taking Iron pills and VIsit Obesity (BMI 30-39.9) Comment: See BMI Plan: Patient encouraged to limit weight gain and sensible diet. Return to clinic in 2 days for MFM and NST. Discussed treatment options. Medications as ordered. Reviewed patient instructions and provided printed copy. This visit did not involve counseling and coordination that comprised more than 50% of the visit time. KODI Mckeon 12/18/2018 2:37 PM documented in this encounter Plan of Treatment Date Type Specialty Care Team Description 12/20/2018 Routine OB Satellites 1, Jerel Nst Visit Ultrasound 12/20/2018 Routine OB Satellites Risk, Visit Scv-Wptmf-Ml/High 12/20/2018 Drop Pit Worker Visit Maternal Medicine 12/24/2018 Hospital Encounter Obstetrics Inga Moore MD [address] [facility] [id number] [place] [address] [id number] 12/24/2018 Surgery Surgery Faculty, Ob SECTION [address] [place] [address] 12/27/2018 Drop Pit Worker Visit Maternal Medicine 01/03/2019 Drop Pit Worker Visit Maternal Inga Moore MD [address] [facility] [id number] [place], [place] [id number] Medicine , [facility] Room Name Type Priority Associated Diagnoses Order Schedule POCT URINALYSIS W LAB Routine High risk , 20 Occurrences starting SPECIFIC GRAVITY antepartum 12/18/2018 until 10/14/2019, 1 completed Health Maintenance Due Date Last Done Comments PNEUMOCOCCAL 0-64 YEARS COMBINED SERIES (1 1990 of 1 - PPSV23) INFLUENZA VACCINE (#1) 2018 PAP SMEAR 05/29/2021 05/29/2018, 03/30/2004 DTaP,Tdap,and Td Vaccines (2 - Td) 10/15/2028 10/15/2018 documented as of this encounter Implants Implanted Type Area Pile Driving Technician Device Shelf Model / Identifier Expiration Date Serial / Lot Nail T2 Ankle Arthrodesis [id number] Left Tamanna F & A #[id number] - S0 NAIL Left: [place] 09/14/2021 [id number] / Implanted: Qty: 1 on 03/03/2017 by Dewayne Felix MD at [facility] Ankle 0 / [id number] Pin, Tamanna Self-Drilling Half [place] 5mm 150 X 25mm #[id number] PIN Left: Tamanna 08/15/2019 [id number] / Implanted: Qty: 1 on 11/25/2016 by Dewayne Felix MD at [facility] Ankle 0000 / [id number] Hexapod Strut PIN Left: Tamanna 11/25/2026 4935-0-040 / Implanted: Qty: 2 on 11/25/2016 by Dewayne Felix MD at [facility] Ankle 0000 / 000 Pin, Tamanna Self-Drilling Half [place] 5mm 150 X 25mm #[id number] PIN Left: Tamanna 07/15/2021 [id number] / Implanted: Qty: 1 on 11/25/2016 by Dewayne Felix MD at [facility] Ankle 0000 / [id number] Pin, Tamanna Self-Drilling [place] 5mm 150 X 25mm #[id number] PIN Left: Tamanna 04/16/2021 [id number] / Implanted: Qty: 1 on 11/25/2016 by Dewayne Felix MD at [facility] Ankle 0000 / [id number] Pin, [place] Self-Drilling Half [place] 5mm 150 X 25mm #[id number] PIN Left: [place] 04/16/2021 [id number] / Implanted: Qty: 1 on 11/25/2016 by Dewayne Felix MD at [facility] Ankle 0000 / [id number] Pin, [place] Self-Drilling Half [place] 5mm 150 X 25mm #[id number] PIN Left: Tamanna 07/15/2021 [id number] / Implanted: Qty: 1 on 11/25/2016 by Dewayne Felix MD at [facility] Ankle 0000 / [id number] Wire [place] - Medium 1.5 To 2.0 Mm PIN Left: Tamanna 11/25/2026 4933-1- 002 / Implanted: Qty: 2 on 11/25/2016 by Dewayne Felix MD at [facility] Ankle 0000 / 0000 Wire [place] Adapter Short PIN Left: Tamanna 11/25/2026 4933-1-004 / Implanted: Qty: 2 on 11/25/2016 by Dewayne Felix MD at [facility] Ankle 0000 / 0000 [place] Pin Adaptor, Short 6mm # 4933-1-020 - S0000 PIN Left: [place] 2019 4933-1-020 / Implanted: Qty: 3 on 11/25/2016 by Dewayne Felix MD at [facility] Ankle 0000 / 0000 Hexapod Strut Medium PIN Left: Tamanna 4935-0-030 / Implanted: Qty: 6 on 11/25/2016 by Dewayne Felix MD at [facility] Ankle 0000 / 0000 Foot Arch RING Left: [place] 11/25/2026 4934-6-180 / Implanted: Qty: 1 on 11/25/2016 by Dewayne Felix MD at [facility] Ankle 0000 / 0000 Screw, Tamanna 5 X 30mm Fully Thrded Locking #[id number] - S0 SCREW Left: [place] 06/14/2021 [id number] / Implanted: Qty: 1 on 03/03/2017 by Dewayne Felix MD at [facility] Ankle 0 / [id number] Screw, Tamanna 5 X 50mm Fully Thrded Locking #[id number] - S0 SCREW Left: [place] 10/14/2020 [id number] / Implanted: Qty: 1 on 03/03/2017 by Dewayne Felix MD at [facility] Ankle 0 / [id number] Screw Headless Compression [id number] Tamanna #[id number] - S0 SCREW Left: [place] 03/03/2027 [id number] / Implanted: Qty: 1 on 03/03/2017 by Dewayne Felix MD at [facility] Ankle 0 / 0 K Wire [id number] WIRE Left: [place] 11/25/2026 5101-2-450 / Implanted: Qty: 2 on 11/25/2016 by Dewayne Felix MD at [facility] Ankle 0000 / 0000 Wire With [place] - Kathryn 2.0 X 450 Mm WIRE Left: [place] 11/25/2026 4933-8- 040 / Implanted: Qty: 2 on 11/25/2016 by Dewayne Felix MD at [facility] Ankle 0000 / 0000 [place] External Fixation 1.5mm-2mm Kathryn Short Carbon #4933-1-001 - S0000 Left: [place] 11/25/2026 4933-1-001 / Implanted: Qty: 4 on 11/25/2016 by Dewayne Felix MD at [facility] Ankle 0000 / 0000 [place] External Fixation Long Carbon 40mml Threaded #4933-1-021 - S0000 Left: Tamanna 11/25/2026 4933-1-021 / Implanted: Qty: 2 on 11/25/2016 by Dewayne Felix MD at [facility] Ankle 0000 / 0000 Set Ring External Fixation Full 180mm Id Carbon Holex5 F/Foot & Ankle Fixation #4933-5-180 - S0000 Left: [place] 11/25/2026 4933-5-180 / Implanted: Qty: 3 on 11/25/2016 by Dewayne Felix MD at [facility] Ankle 0000 / 0000 Ring External Fixation 180mm #4934-4-180 - S0000 Left: [place] 2026 4934-4-180 / Implanted: Qty: 1 on 11/25/2016 by Dewayne Felix MD at [facility] Ankle 0000 / 0000 Nut External Fixation 6mm Kathryn Short #4933-1-010 - S0000 Left: [place] 4933-1-010 / Implanted: Qty: 25 on 11/25/2016 by Dewayne Felix MD at [facility] Ankle 0000 / 0000 [place] External Fixation 6mm Kathryn Carbon #4933-1-702 - S000 Left: Tmaanna 11/25/2026 4933-1-702 / Implanted: Qty: 14 on 11/25/2016 by Dewayne Felix MD at [facility] Ankle 000 / 0000 Washer External Fixation 4mm Kathryn Yellow #4933-1-712 - S0000 Left: Tamanna 11/25/2026 4933-1-712 / Implanted: Qty: 1 on 11/25/2016 by Dewayne Felix MD at [facility] Ankle 0000 / 0000 Screw, Fixos Headless Compression [id number] [place] #[id number] - S0 Left: [place] 03/03/2027 [id number] / Implanted: Qty: 1 on 03/03/2017 by Dewayne Felix MD at [facility] Ankle 0 / 0 documented as of this encounter Procedures Procedure Name Priority Date/Time Associated Diagnosis Comments NON-STRESS Routine 12/18/2018 2:31 Gladani's Results for this TEST PM CDT thrombosthenin procedure are in disorder the results section. POCT URINALYSIS Routine 12/18/2018 1:02 High risk , Results for this PM CDT antepartum procedure are in the results section. documented in this encounter Results NON-STRESS TEST (12/18/2018 2:31 PM CDT) Specimen Narrative Performed At [facility]ACS Performing Organization Address City/State/Zipcode Phone Number PACS POCT URINALYSIS W SPECIFIC GRAVITY (12/18/2018 1:02 PM CDT) POCT U SP GRAV . 1.005 - 1.025 mg/dl POCT PH U . 5 - 8 mg/dl POCT U LEUK EST . Negative - Negative POCT U NIT . 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
--- OUTSIDE RECORDS SUMMARY | 2019-07-09 07:29 | XMS REPORT | Summary of Care ---
:1985 Author Organization [facility] Address [address] [place] [id number] Care Team Providers Name Role Phone Orthopedics, Tdc Unavailable Unavailable Max Velarde Primary Care Provider Reason for Visit Reason Comments ULTRASOUND (Routine) Status Reason Specialty Diagnoses / Referred By Referred To Procedures Contact Contact Authorized OG-OBSTETRICS & Diagnoses Follow up hydrops Mila Ferguson [facility] GYNECOLOGY / Procedures CONSULT MATERNAL MEDICINE ULTRASOUND ULTRASOUND 30 [address] Ultrasound-[facility] Maternal [address] [facility] Medicine [place], [place] Clinics [id number] Phone: Drive, 3[address] Floor [phone] [place], [place] Fax: [phone] Encounter Details Date Type Department Care Team Description 12/20/2018 Credit Control Clerk Visit [facility] Mila Ferguson Soraida [address] [place] [address] [phone] Disorder of placenta in third trimester; Ultrasound- Jesse Woods MD [address] [facility] [id number] [place] [address] Maternal care for hydrops fetalis in third trimester, single or unspecified fetus; [place] Maternal care for scar from previous delivery, unspecified prior delivery type; [address] Obesity complicating in third trimester; [place], [place] Oligohydramnios in third trimester, single or unspecified fetus [id number] Allergies Active Allergy Reactions Severity Noted Date [...] on 12/24/18 - Notify Dr. Bishop (cell [phone]) - Notify Pharamacy for Nova7 to be mixed - Notify Pedi - Call Lab [facility] to callibrate TEG machine (will take 1h to calibrate) - Plan to give 2 packs of PLT, Novo7 30 min prior to CD 90 mcg/kg and TXA prior to insicion. -as per Madisynecho. -One unit of Cryo intraop as sealant - After delivery do q4h TEG to assess furhther need for PLT or Nova7 - If she will require additional doses of Nova7, it is available in the Pharmacy, need to call Anemia - H/H .8 -S/p x 2 IV iron infusions - Hematology is followign - On B12 supplement HCV - Viral load 5.4 million IU/mlComme History of x 2 (GETA) +1 - 2008 - 2006 - Desires BTL Problem Noted Date Research study patient: ECCCO: Group C 12/13/2018 Overview: Notice of research participation in the [facility] Trial: IRB # [id number]. PI- [...] concerns, you may page the PRD at [phone]. Anemia of mother in , antepartum 11/19/2018 [...] Overview: Added automatically from request for surgery [id number] Cellulitis 12/30/2016 05/29/2018 Infection 12/29/2016 05/29/2018 Bleeding disorder 11/27/2016 05/29/2018 Pain 11/25/2016 05/29/2018 Bleeding 10/19/2016 05/29/2018 Pain, dental 10/11/2016 05/29/2018 Overview: Added automatically from request for surgery [id number] Infection of bone of left ankle 09/09/2016 [...] Treatment Date Type Specialty Care Team Description 12/24/2018 Hospital Encounter Obstetrics Inga Moore MD [address] [facility] [id number] [place], [place] [id number] 12/24/2018 Surgery Surgery Faculty, Ob SECTION [address] [place] [address] 12/27/2018 Credit Control Clerk Visit Maternal Medicine 01/03/2019 Credit Control Clerk Visit Maternal Inga Moore MD [address] [facility] [id number] [place], [place] [address] [facility] 3, [facility] Usg Room Health Maintenance Due Date Last Done Comments PNEUMOCOCCAL 0-64 YEARS COMBINED SERIES (1 1990 of 1 - PPSV23) INFLUENZA VACCINE (#1) 2018 PAP SMEAR 05/29/2021 05/29/2018, 03/30/2004 DTaP,Tdap,and Td Vaccines (2 - Td) 10/15/2028 10/15/2018 documented as of this encounter Implants Implanted Type Area Certified Ophthalmic Medical Technician Device Shelf Model / Identifier Expiration Date Serial / Lot Nail T2 Ankle Arthrodesis [id number] Left Tamanna F & A #[id number] - S0 NAIL Left: [employer] [place] 09/14/2021 [id number] / Implanted: Qty: 1 on 03/03/2017 by Dewayne Felix MD at [facility] Ankle 0 / [id number] Pin, Tamanna Self-Drilling Half [place] 5mm 150 X 25mm #5017-8-150s PIN Left: Tamanna 08/15/2019 5017-8-150S / Implanted: Qty: 1 on 11/25/2016 by Dewayne Felix MD at [facility] Ankle 0000 / [id number] Hexapod Strut PIN Left: Tamanna 11/25/2026 4935-0-040 / Implanted: Qty: 2 on 11/25/2016 by Dewayne Felix MD at [facility] Ankle 0000 / 000 Pin, [place] Self-Drilling Half [place] 5mm 150 X 25mm #5017-8-150s PIN Left: [place] 07/15/2021 5017-8-150S / Implanted: Qty: 1 on 11/25/2016 by Dewayne Felix MD at [facility] Ankle 0000 / [id number] Pin, [place] Self-Drilling Half [place] 5mm 150 X 25mm #5017-8-150s PIN Left: Tamanna 04/16/2021 5017-8-150S / Implanted: Qty: 1 on 11/25/2016 by Dewayne Felix MD at [facility] Ankle 0000 / [id number] Pin, Tamanna Self-Drilling Half [place] 5mm 150 X 25mm #5017-8-150s PIN Left: Tamanna 04/16/2021 5017-8-150S / Implanted: Qty: 1 on 11/25/2016 by Dewayne Felix MD at [facility] 0000 / [id number] Pin, Tamanna Self-Drilling Half [place] 5mm 150 X 25mm #5017-8-150s PIN Left: Tamanna 07/15/2021 5017-8-150S / Implanted: Qty: 1 on 11/25/2016 by Dewayne Felix MD at [facility] Ank[facility] 0000 / [id number] Wire Marble - Medium 1.5 To 2.0 Mm PIN Left: [place] 11/25/2026 4933-1- 002 / Implanted: Qty: 2 on 11/25/2016 by Dewayne Felix MD at [facility] 0000 / 0000 Wire Marble Adapter Short PIN Left: [place] 11/25/2026 4933-1-004 / Implanted: Qty: 2 on 11/25/2016 by Dewayne Felix MD at [facility] 0000 / 0000 [place] Pin Adaptor, Short 6mm # 4933-1-020 - S0000 PIN Left: [employer] 2019 4933-1-020 / Implanted: Qty: 3 on 11/25/2016 by Dewayne Felix MD at [facility] 0000 / 0000 Hexapod Strut Medium PIN Left: Tamanna 4935-0-030 / Implanted: Qty: 6 on 11/25/2016 by Dewayne Felix MD at [facility] 0000 / 0000 Foot Arch RING Left: [employer] [place] 11/25/2026 4934-6-180 / Implanted: Qty: 1 on 11/25/2016 by Dewayne Felix MD at [facility] 0000 / 0000 Screw, [place] 5 X 30mm Fully Thrded Locking #1896-5030s - S0 SCREW Left: Tamanna 06/14/2021 1896-5030S / Implanted: Qty: 1 on 03/03/2017 by Dewayne Felix MD at [facility] 0 / [id number] Screw, [place] 5 X 50mm Fully Thrded Locking #1896-5050s - S0 SCREW Left: Tamanna 10/14/2020 1896-5050S / Implanted: Qty: 1 on 03/03/2017 by Dewayne Felix MD at [facility] 0 / [id number] Screw Headless Compression 3f76faps Tamanna #[id number] - S0 SCREW Left: Tamanna 03/03/2027 [id number] / Implanted: Qty: 1 on 03/03/2017 by Dewayne Felix MD at [facility] 0 / 0 K Wire 0eop386cm WIRE Left: Tamanna 11/25/2026 5101-2-450 / Implanted: Qty: 2 on 11/25/2016 by Dewayne Felix MD at [facility] 0000 / 0000 Wire With [place] - Kathryn 2.0 X 450 Mm WIRE Left: Tamanna 11/25/2026 4933-8- 040 / Implanted: Qty: 2 on 11/25/2016 by Dewayne Felix MD at [facility] 0000 / 0000 Marble External Fixation 1.5mm-2mm Kathryn Short Carbon #4933-1-001 - S0000 Left: [place] 11/25/2026 4933-1-001 / Implanted: Qty: 4 on 11/25/2016 by Dewayne Felix MD at [facility] 0000 / 0000 Marble External Fixation Long Carbon 40mml Threaded #4933-1-021 - S0000 Left: Tamanna 11/25/2026 4933-1-021 / Implanted: Qty: 2 on 11/25/2016 by Dewayne Felix MD at [facility] 0000 / 0000 Set Ring External Fixation Full 180mm Id Carbon Holex5 F/Foot & Ankle Fixation #4933-5-180 - S0000 Left: Tamanna 11/25/2026 4933-5-180 / Implanted: Qty: 3 on 11/25/2016 by Dewayne Felix MD at [facility] 0000 / 0000 Ring External Fixation 180mm #4934-4-180 - S0000 Left: [place] 2026 4934-4-180 / Implanted: Qty: 1 on 11/25/2016 by Dewayne Felix MD at [facility] 0000 / 0000 Nut External Fixation 6mm Kathrny Short #4933-1-010 - S0000 Left: [place] 4933-1-010 / Implanted: Qty: 25 on 11/25/2016 by Dewayne Felix MD at [facility] 0000 / 0000 Marble External Fixation 6mm Kathryn Carbon #4933-1-702 - S000 Left: Tamanna 11/25/2026 4933-1-702 / Implanted: Qty: 14 on 11/25/2016 by Dewayne Felix MD at [facility] 000 / 0000 Washer External Fixation 4mm Kathryn Yellow #4933-1-712 - S0000 Left: Tamanna 11/25/2026 4933-1-712 / Implanted: Qty: 1 on 11/25/2016 by Dewayne Felix MD at [facility] 0000 / 0000 Screw, Fixos Headless Compression 7.6x956md Tamanna #[id number] - S0 Left: Tamanna 03/03/2027 [id number] / Implanted: Qty: 1 on 03/03/2017 by Dewayne Felix MD at [facility] 0 / 0 documented as of this encounter Results Not on filedocumented in this encounter Visit Diagnoses Diagnosis Disorder of placenta in third trimester Other placental conditions affecting management of mother, antepartum Maternal care for hydrops fetalis in third trimester, single or unspecified fetus Maternal care for scar from previous delivery, unspecified prior delivery type Obesity complicating in third trimester Obesity complicating , childbirth, or the puerperium, antepartum condition or complication Oligohydramnios in third trimester, single or unspecified fetus documented in this encounter Insurance Payer Benefit Plan / Subscriber ID Effective Dates Phone Address Type Group [employer] MEDICAID OF xxxxxxxxx 2018-Present [phone] [address] Medicaid [place] [id number] [place] [phone] (Home) [place] [address] documented as of this encounter Advance Directives Name Relationship Healthcare Agent Communication Relationship Geovanny Boyd Mother Primary healthcare agent [email or web address]
--- OUTSIDE RECORDS SUMMARY | 2019-07-09 07:31 | XMS REPORT | Summary of Care ---
:1985 Author Organization [facility] Address [address] [place] [id number] Care Team Providers Name Role Phone Orthopedics, Tdc Unavailable Unavailable Max Velarde Primary Care Provider Reason for Visit Reason Comments NURSE VISIT Staple Removal (Routine) Status Reason Specialty Diagnoses / Referred By Referred To Procedures Contact Contact New Request OB Satellites Diagnoses S/P section Cordero Kyle Procedures DISCHARGE FOLLOW-UP: [facility] [id number] [place] [address] Encounter Details Date Type Department Care Team Description 12/28/2018 Nurse Visit [facility]- Max Velarde, PHOTOGRAPHIC LABORATORY TECHNICIAN [address] [place] [address] High risk , [place] Visit, [facility] Nurse antepartum [address] [place] [address] Allergies Active Allergy Reactions Severity Noted Date Comments Aspirin Unknown - See comments 12/24/2009 Unable to take d/t clotting disorder. Penicillin Unknown - See comments 06/05/2016 documented as of this encounter (statuses as of 12/28/2018) Medications Medication Sig Dispensed Refills Start Date End Date Status PNV 67-iron Take 1 Each by mouth 30 capsule 7 07/20/2018 Active ps-folate no.1-dha daily. (VITAFOL ULTRA) 29 mg iron- 1 mg-200 mg CapIndications: Supervision of high risk in second trimester vitamin B-12 500 Take 500 mcg by 0 Active mcg tablet mouth daily. vitamin C 100 mg Take 100 mg by mouth 0 Active tablet daily. ferrous sulfate 325 Take 1 tablet by 100 tablet 3 10/16/2018 Active mg (65 mg iron) mouth 2 (two) times tabletIndications: daily. Anemia of mother in , antepartum docusate calcium Take 1 capsule by 30 capsule 0 12/24/2018 Active 240 mg mouth once daily as capsuleIndications: needed for S/P Constipation. section HYDROcodone-acetami Take 1 tablet by 20 tablet 0 12/24/2018 Active nophen 5-325 mg mouth every 6 (six) tabletIndications: hours as needed for S/P Pain (scale 4-6) (If section uncontrolled by Ibuprofen). simethicone 80 mg Take 2 tablets by 30 tablet 0 12/24/2018 Active chewable mouth after meals tabletIndications: and at bedtime as S/P needed for Gas. 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 Bishop (cell [phone]) - Notify Pharamacy for Nova7 to be mixed - Notify Pedi - Call Lab [facility] to callibrate TEG machine (will take 1h to calibrate) - Plan to give 2 packs of PLT, Novo7 30 min prior to CD 90 mcg/kg and TXA prior to insicion. -as per [place]. -One unit of Cryo intraop as sealant [...] 2006 - Desires BTL Problem Noted Date 37 weeks gestation of 12/20/2018 Research study patient: [facility]CO: Group C 12/13/2018 Overview: Notice of research participation in the [facility] Trial: IRB # [id number]. PI- [...] concerns, you may page the PRD at [phone]. 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 Chronic hepatitis C without hepatic coma 08/08/2016 documented as of this encounter (statuses as of 12/28/2018) Resolved Problems Problem Noted Date Resolved Date Threatened 11/22/2018 11/22/2018 Anemia of mother in , antepartum 08/02/2018 10/09/2018 Nausea and vomiting during 06/26/2018 10/09/2018 Headache in 06/26/2018 10/09/2018 Susceptible to varicella (non-immune), currently 05/30/20182018 Overview: Address pp Surgery, elective 02/02/2017 05/29/2018 Ankle fracture, bimalleolar, closed, left, sequela 02/02/2017 10/09/2018 Overview: Added automatically from request for surgery [id number] Cellulitis 12/30/2016 05/29/2018 Infection 12/29/2016 05/29/2018 Bleeding disorder 11/27/2016 05/29/2018 Pain 11/25/2016 05/29/2018 Bleeding 10/19/2016 05/29/2018 Pain, dental 10/11/2016 05/29/2018 Overview: Added automatically from request for surgery [id number] Infection of bone of left ankle 09/09/2016 10/09/2018 Obesity in 09/08/2016 11/19/2018 Unspecified dental caries 08/08/2016 05/29/2018 Tooth pain 08/08/2016 05/29/2018 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 06/05/2016 11/03/2016 Anemia 05/21/2016 05/29/2018 documented as of this encounter (statuses as of 12/28/2018) Immunizations Name Administration Dates Next Due TDAP (ADACEL) VACCINE 10/15/2018 documented as of this encounter Social History Tobacco Use Types Packs/Day Years Used Date Former Smoker Cigarettes 0.1 1.5 Quit: 06/21/2015 Smokeless Tobacco: Never Used Comments: 1 pack per week; quit 2015 Alcohol Use Drinks/Week oz/Week Comments No 0 Standard drinks or equivalent 0.0 occasionally Sex Assigned at Date Recorded Not on file Job Start Date Occupation Industry Not on file Not on file Not on file Travel History Travel Start Travel End No recent travel history available. documented as of this encounter Last Filed Vital Signs Vital Sign Reading Time Taken Comments Blood Pressure 172/90 12/28/2018 1:47 PM CDT Pulse 52 12/28/2018 1:47 PM CDT Temperature 36.9 C (98.4 F) 12/28/2018 1:32 PM CDT Respiratory Rate 16 12/28/2018 1:32 PM CDT Oxygen Saturation - - Inhaled Oxygen Concentration - - Weight 109.1 kg (240 lb 9 oz) 12/28/2018 1:32 PM CDT Height 165.1 cm (5' 5") 12/28/2018 1:32 PM CDT Body Mass Index 40.03 12/28/2018 1:32 PM CDT documented in this encounter Patient Instructions Patient InstructionsStephen Patel RN - 12/28/2018 2:30 PM CDT Understanding Preeclampsia Your blood pressure will be monitored regularly throughout your to help check for preeclampsia. Preeclampsia is -related hypertension that develops after 20 weeks' gestation. It can lead to health risks for you and your baby. No one knows what causes preeclampsia. But it is known that theonly cure is delivery. Signs and symptoms A common sign of preeclampsia is high blood pressure. Other signs and symptoms may include: Rapid weight gain Protein in your urine Headache Abdominal pain on your right side Vision problems (flashes or spots) Edema(swelling) in your face or hands (this also commonly happens near the end of normal pregnancies, even without preeclampsia) Tests you may have Your healthcare provider will want to check your blood pressure throughout your . If your blood pressure is high, you may havethe following tests: Urine tests to look for protein Blood tests to confirm preeclampsia monitoring to ensure that your baby is healthy Treating preeclampsia A daily low dose of aspirin may be prescribed to those at risk for preeclampsia. Preeclampsia almostalways ends soon after you give . Until then, your healthcare provider can help manage your condition. If your symptoms are mild, you may need bed rest at home. If your symptoms are severe, you will be hospitalized. Hospital treatment includes: Complete bed rest to help control blood pressure Magnesium IV (intravenous) drip during labor to prevent seizures Induced labor or surgical delivery by section When to call your healthcare provider Call your healthcare provider if swelling, weight gain, or other symptoms come on quickly or are severe. Some cases of preeclampsia are more severe than others. Your signs and symptoms also may change or worsen as you get closer to your due date. Whos at risk? Preeclampsia can happen in any woman. Factors that increase the risk include: Previous pregnancies. Preeclampsia, intrauterine growth retardation (IUGR), , placental abruption, or Medical history of mother. Diabetes, high blood pressure, obesity, kidney disease, autoimmune disease (for example lupus), or family history of preeclampsia Current . First , multiple fetuses, over the age of 40 years, or in vitro fertilization Dangers of preeclampsia If not treated, preeclampsia can cause problems for you and your baby. The placenta (organ that nourishes your baby) may tear away from the uterine wall. This can lead to distress (the baby is atrisk for health problems) and premature delivery. Preeclampsia can also cause these health problems: Kidney failure or other organ damage Seizures Stroke Once you give In most cases, preeclampsia goes away on its own soon after you give . Within days of delivery,your blood pressure, swelling, and other signsshould decrease. Date Last Reviewed: 09/16/201519995547-7440 [employer] [address] [place] [address], [place] [address]. All rights reserved. This information is not intended as a substitute for professional medical care. Always follow your healthcare professional's instructions. documented in this encounter Progress Notes Stephen Patel RN - 12/28/2018 2:30 PM CDTPatient present in clinic for nurse visit for staple removal. Patient initial BP is 186/97, 2nd recheck 172/90. Patient has severe swelling in both extremities and swelling in face. Patient has headache that has lasted 3 days, pain level 6/10. Patient with trace protein in the urine. Report givento provider, provider agrees with plan of care to send patient to [place]. Patient verbalizes she does not want to go [place] for care, advised patient that I am advising her to go to [place], but regardless she needs to seek immediate emergent care. Patient educated onpre eclampsia risks and consequences. No latricia taken out due to patient's blood pressure. Patient verbalized understanding. STEPHEN PATEL RN 12/28/2018 1:52 PM documented in this encounter Plan of Treatment Date Type Specialty Care Team Description 01/11/2019 Routine Visit OB Satellites Rimma Duran, PHOTOGRAPHIC LABORATORY TECHNICIAN [address] [place] [address] [phone] Health Maintenance Due Date Last Done Comments PNEUMOCOCCAL 0-64 YEARS COMBINED SERIES (1 1990 of 1 - PPSV23) INFLUENZA VACCINE (#1) 2018 PAP SMEAR 05/29/2021 05/29/2018, 03/30/2004 DTaP,Tdap,and Td Vaccines (2 - Td) 10/15/2028 10/15/2018 documented as of this encounter Implants Implanted Type Area Enrollment Nurse Device Shelf Model / Identifier Expiration Date Serial / Lot Nail T2 Ankle Arthrodesis [id number] Left Tamanna F & A #[id number] - S0 NAIL Left: Tamanna 09/14/2021 [id number] / Implanted: Qty: 1 on 03/03/2017 by Dewayne Felix MD at [facility] Ankle 0 / [id number] Pin, Tamanna Self-Drilling Half [place] 5mm 150 X 25mm #[id number] PIN Left: [place] 08/15/2019 [id number] / Implanted: Qty: 1 on 11/25/2016 by Dewayne Felix MD at [facility] Ankle 0000 / [id number] Hexapod Strut PIN Left: Tamanna 11/25/2026 4935-0-040 / Implanted: Qty: 2 on 11/25/2016 by Dewayne Felix MD at [facility] Ankle 0000 / 000 Pin, Tamanna Self-Drilling Half [place] 5mm 150 X 25mm #[id number] PIN Left: [place] 07/15/2021 [id number] / Implanted: Qty: 1 on 11/25/2016 by Dewayne Felix MD at [facility] Ankle 0000 / [id number] Pin, Tamanna Self-Drilling Half [place] 5mm 150 X 25mm #[id number] PIN Left: Tamanna 04/16/2021 [id number] / Implanted: Qty: 1 on 11/25/2016 by Dewayne Felix MD at [facility] Ankle 0000 / [id number] Pin, Tamanna Self-Drilling Half [place] 5mm 150 X 25mm #[id number] PIN Left: [place] 04/16/2021 [id number] / Implanted: Qty: 1 on 11/25/2016 by Dewayne Felix MD at [facility] Ankle 0000 / [id number] Pin, [place] Self-Drilling Half [place] 5mm 150 X 25mm #[id number] PIN Left: [place] 07/15/2021 5017-8-150S / Implanted: Qty: 1 on 11/25/2016 by Dewayne Fleix MD at [facility] Ankle 0000 / [id number] Wire [place] - Medium 1.5 To 2.0 Mm PIN Left: [place] 11/25/2026 4933-1- 002 / Implanted: Qty: 2 on 11/25/2016 by Dewayne Felix MD at [facility] Ankle 0000 / 0000 Wire [place] Adapter Short PIN Left: [place] 11/25/2026 4933-1-004 / Implanted: Qty: 2 on 11/25/2016 by Dewayne Felix MD at [facility] Ankle 0000 / 0000 [place] Pin Adaptor, Short 6mm # 4933-1-020 - S0000 PIN Left: Tamanna 2019 4933-1-020 / Implanted: Qty: 3 on 11/25/2016 by Dewayne Felix MD at [facility] Ankle 0000 / 0000 Hexapod Strut Medium PIN Left: Tamanna 4935-0-030 / Implanted: Qty: 6 on 11/25/2016 by Dewayne Felix MD at [facility] Ankle 0000 / 0000 Foot Arch RING Left: Tamanna 11/25/2026 4934-6-180 / Implanted: Qty: 1 on 11/25/2016 by Dewayne Felix MD at [facility] Ankle 0000 / 0000 Screw, [place] 5 X 30mm Fully Thrded Locking #1896-5030s - S0 SCREW Left: Tamanna 06/14/2021 [id number] / Implanted: Qty: 1 on 03/03/2017 by Dewayne Felix MD at [facility] Ankle 0 / [id number] Screw, [place] 5 X 50mm Fully Thrded Locking #1896-5050s - S0 SCREW Left: [place] 10/14/2020 [id number] / Implanted: Qty: 1 on 03/03/2017 by Dewayne Felix MD at [facility] Ankle 0 / [id number] Screw Headless Compression [id number] Tamanna #[id number] - S0 SCREW Left: [place] 03/03/2027 [id number] / Implanted: Qty: 1 on 03/03/2017 by Dewayne Felix MD at [facility] Ankle 0 / 0 K Wire [id number] WIRE Left: [place] 11/25/2026 5101-2-450 / Implanted: Qty: 2 on 11/25/2016 by Dewayne Felix MD at [facility] Ankle 0000 / 0000 Wire With [place] - Kathryn 2.0 X 450 Mm WIRE Left: Tamanna 11/25/2026 4933-8- 040 / Implanted: Qty: 2 on 11/25/2016 by Dewayne Felix MD at [facility] Ankle 0000 / 0000 [place] External Fixation 1.5mm-2mm Kathryn Short Carbon #4933-1-001 - S0000 Left: [place] 11/25/2026 4933-1-001 / Implanted: Qty: 4 on 11/25/2016 by Dewayne Felix MD at [facility] Ankle 0000 / 0000 [place] External Fixation Long Carbon 40mml Threaded #4933-1-021 - S0000 Left: Tamanna 11/25/2026 4933-1-021 / Implanted: Qty: 2 on 11/25/2016 by Dewayne Felix MD at [facility] Ankle 0000 / 0000 Set Ring External Fixation Full 180mm Id Carbon Holex5 F/Foot & Ankle Fixation #4933-5-180 - S0000 Left: [place] 11/25/2026 4933-5-180 / Implanted: Qty: 3 on 11/25/2016 by Dewayne Felix MD at [facility] Ankle 0000 / 0000 Ring External Fixation 180mm #4934-4-180 - S0000 Left: [place] 2026 4934-4-180 / Implanted: Qty: 1 on 11/25/2016 by Dewayne Felix MD at [facility] Ankle 0000 / 0000 Nut External Fixation 6mm Kathryn Short #4933-1-010 - S0000 Left: [place] 4933-1-010 / Implanted: Qty: 25 on 11/25/2016 by Dewayne Felix MD at [facility] Ankle 0000 / 0000 [place] External Fixation 6mm Kathryn Carbon #4933-1-702 - S000 Left: Tamanna 11/25/2026 4933-1-702 / Implanted: Qty: 14 on 11/25/2016 by Dewayne Felix MD at [facility] Ankle 000 / 0000 Washer External Fixation 4mm Kathryn Yellow #4933-1-712 - S0000 Left: [place] 11/25/2026 4933-1-712 / Implanted: Qty: 1 on 11/25/2016 by Dewayne Felix MD at [facility] Ankle 0000 / 0000 Screw, Fixos Headless Compression [id number] Tamanna #[id number] - S0 Left: Tamanna 03/03/2027 [id number] / Implanted: Qty: 1 on 03/03/2017 by Dewayne Felix MD at [facility] Ankle 0 / 0 documented as of this encounter Procedures Procedure Name Priority Date/Time Associated Diagnosis Comments POCT URINALYSIS Routine 12/28/2018 1:48 PM High risk , Results for this CDT antepartum procedure are in the results section. documented in this encounter Results POCT URINALYSIS W SPECIFIC GRAVITY (12/28/2018 1:48 PM CDT) POCT U SP GRAV * 1.005 - 1.025 mg/dl [facility] POCT PH U * 5 - 8 mg/dl [facility] POCT U LEUK EST * Negative - Negative [facility] POCT U NIT * Negative - Negative [facility] POCT U PROT Trace Negative - Negative [facility] POCT U GLU Negative Negative - Negative [facility] POCT U KETONE * Negative - Negative [facility] POCT U UROBILI * 0.2 - 1 mg/dl [facility] POCT U BILI * Negative - Negative [facility] POCT U BLD * Negative - Negative [facility] POCT U COLOR * [facility] POCT U APPEAR * [facility] Specimen Urine - URINE, CLEAN CATCH Performing Organization Address City/State/Zipcode Phone Number [facility] CLIA: [id number], [address] [place] [address] Anne-Marie documented in this encounter Visit Diagnoses Diagnosis High risk , antepartum documented in this encounter Insurance Payer Benefit Plan / Subscriber ID Effective Dates Phone Address Type Group [employer] MEDICAID OF xxxxxxxxx 2018-Present [phone] [address] [place] [id number] [place] [phone] (Home) [place] [address] documented as of this encounter Advance Directives Name Relationship Healthcare Agent Communication Relationship Geovanny Boyd Mother Primary healthcare agent [email or web address]
--- OUTSIDE RECORDS SUMMARY | 2019-07-09 07:31 | XMS REPORT | Summary of Care ---
:1985 Author Organization [facility] - Health Address [address] [place] [address] Care Team Providers Name Role Phone Orthopedics, Tdc Unavailable Unavailable Max Velarde Primary Care Provider Reason for Referral (Routine) Status Reason Specialty Diagnoses / Procedures Referred By Referred To Contact Contact New Request Hematology Diagnoses Glanzmann's thrombosthenin disorder Cordero Kyle Procedures CONSULT/REFERRAL HEMATOLOGY [address] [id number] (Routine) Status Reason Specialty Diagnoses / Referred By Referred To Procedures Contact Contact New Request Diagnoses S/P section CorderoKyle glover Procedures DISCHARGE FOLLOW-UP: [facility] [place] [phone] Reason for Visit Auth/Cert Status Reason Specialty Diagnoses / Referred By Contact Referred To Contact Procedures Obstetrics Diagnoses 33yo @ 39.1 wbd PrevX for ERCS Jsa3 Procedures CA DELIVERY ONLY SECTION [address] [place] [id number] Encounter Details Date Type Department Care Team Description 12/20/2018 - Hospital Encounter Labor and Delivery Dl, 37 weeks gestation 12/24/2018 (JSA3) MD Ree of [address] [place], [place] [address], [place] [address] [phone] Allergies Active Allergy Reactions Severity Noted Date Comments Aspirin Unknown - See comments 12/24/2009 Unable to take d/t clotting disorder. 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 Bishop (cell [phone]) - Notify Pharamacy for Nova7 to be [...] Pharmacy, need to call Anemia - H/H /32.8 -S/p x 2 IV iron infusions - Hematology is followign - On B12 supplement HCV - Viral load 5.4 million IU/mlComme History of x 2 (GETA) +1 - 2008 - 2006 - Desires BTL Problem Noted Date 37 weeks gestation of 12/20/2018 Research study patient: [facility]: Group C 12/13/2018 Overview: Notice of research participation in the [facility] Trial: IRB # [id number]. PI- Modesto De [...] concerns, you may page the PRD at [phone]. 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 Chronic hepatitis C without hepatic coma 08/08/2016 Comments Yes documented as of this encounter (statuses as of 12/24/2018) Resolved Problems Problem Noted Date Resolved Date Threatened 11/22/2018 11/22/2018 Anemia of mother in , antepartum 08/02/2018 10/09/2018 Nausea and vomiting during 06/26/2018 10/09/2018 Headache in 06/26/2018 10/09/2018 Susceptible to varicella (non-immune), currently 05/30/20182018 Overview: Address pp Surgery, elective 02/02/2017 05/29/2018 Ankle fracture, bimalleolar, closed, left, sequela 02/02/2017 10/09/2018 Overview: Added automatically from request for surgery [id number] Cellulitis 12/30/2016 05/29/2018 Infection 12/29/2016 05/29/2018 Bleeding disorder 11/27/2016 05/29/2018 Pain 11/25/2016 05/29/2018 Bleeding 10/19/2016 05/29/2018 Pain, dental 10/11/2016 05/29/2018 Overview: Added automatically from request for surgery [id number] Infection of bone of left ankle 09/09/2016 10/09/2018 Obesity in 09/08/2016 11/19/2018 Unspecified dental caries 08/08/2016 05/29/2018 Tooth pain 08/08/2016 05/29/2018 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 06/05/2016 11/03/2016 Anemia 05/21/2016 05/29/2018 documented as of this encounter (statuses as of 12/24/2018) Immunizations Name Administration Dates Next Due TDAP (ADACEL) VACCINE 10/15/2018 documented as of this encounter Social History Tobacco Use Types Packs/Day Years Used Date Former Smoker Cigarettes 0.1 1.5 Quit: 06/21/2015 Smokeless Tobacco: Never Used Comments: 1 pack per week; quit 2015 Alcohol Use Drinks/Week oz/Week Comments No 0 Standard drinks or equivalent 0.0 occasionally Comments Yes Sex Assigned at Date Recorded Not on file Job Start Date Occupation Industry Not on file Not on file Not on file Travel History Travel Start Travel End No recent travel history available. documented as of this encounter Last Filed Vital Signs Vital Sign Reading Time Taken Comments Blood Pressure 119/79 12/24/2018 4:00 AM CDT Pulse 69 12/24/2018 4:00 AM CDT Temperature 36.6 C (97.9 F) 12/24/2018 8:00 AM CDT Respiratory Rate 18 12/24/2018 4:00 AM CDT Oxygen Saturation 99% 12/24/2018 4:00 AM CDT Inhaled Oxygen Concentration - - Weight 108.6 kg (239 lb 8 oz) 12/21/2018 10:30 AM CDT Height 165.1 cm (5' 5") 12/21/2018 10:30 AM CDT Body Mass Index 39.85 12/21/2018 10:30 AM CDT documented in this encounter Discharge Instructions InstructionsDaria Jarrett RN - 12/24/2018Multidisciplinary Discharge Instructions (may include diet, dressing changes, activity limits, written materials given to patient: DIET: Eat a well balanced diet; drink 6-8 glasses of fluids daily; eat fruits and green, leafy vegetables. DAILY ACTIVITIES: 1. As much as you feel able to do. Rest when you are tired. 2. Limitations: Specify; No heavy lifting other than your baby for 4 weeks if you had surgery. TREATMENT AT HOME 1. Use a well-fitting bra to prevent breast engorgement 2. Resume intercourse as instructed by your physician. 3. Do not use douches or tampons for four weeks. 4. To help prevent urinary tract infection; after each urination and bowel movement, wipe and dry from front to back and change renzo pad. 5. Follow discharge instructions regarding baby care. 6. Follow family planning instructions. IMMEDIATE TREATMENT - Call Clinic or Your Physician 1. Increase in pain and tenderness of uterus. 2. Increased vaginal bleeding (bright red blood which soaks 2 pads in 1 hour or pass large clots). 3. Foul smelling vaginal discharge. 4. Burning in the tube that empties the urine from the bladder. 5. Painful breast engorgement or cracked nipples. 6. Pain, discharges, or gaping incision. 7. Temperature greater than 38.0C or 100.4F 8. Pain and tenderness of calf or thigh muscles. 9. No bowel movements in 4 days. For Problems or Questions Call: OB Clinic Family Planning [phone] or Emergency: Go to the closest emergency room or call 911 documented in this encounter Progress Notes Ness Roberto MD - 12/24/2018 7:49 AM CDT POST-OPERATIVE PROGRESS NOTE 12/24/2018 7:49 AM Subjective: Overnight patient had no complaints. Her pain is well controlled on oral pain medications. She is tolerating a regular diet. She has passed flatus. She is ambulating without difficulty. Lochia is Scant. She is urinating without vanessa. Patient denies chest pain, SOB, n/v, headache, RUQ pain, vision changes, dizziness. Objective: VITALS: Patient Vitals for the past 24 hrs: BP Temp Temp src Pulse Resp SpO2 12/24/18 0400 119/79 69 18 99 % 12/23/18 2000 116/87 36.9 C (98.4 F) Oral 67 18 12/23/18 1600 132/67 36.9 C (98.5 F) Oral 69 18 12/23/18 0800 133/86 36.7 C (98 F) Oral 68 18 I/O: No intake or output data in the 24 hours ending 12/24/18 0749 PE: General: patient alert and in no acute distress Lungs: clear to auscultation bilaterally Cardiology: regular rate and rhythm, no murmur Abdomen: normal tenderness to palpation, soft, bowel sounds present. Fundus is firm and at umbilicus Incision: Clean, dry, and intact, no erythema or induration Extremities: no clubbing, cyanosis, or edema : deferred MEDS: Current Facility-Administered Medications Medication Dose Route Frequency Last Rate Last Dose bisacodyl (DULCOLAX) suppository 10 mg 10 mg Rectal QDAILYPRN diphenhydrAMINE (BENADRYL) 25 mg in NaCl 0.9% (NS) piggyback 25 mg IV Piggyback Q6HPRN diphenhydrAMINE (BENADRYL) tablet 25 mg 25 mg Oral Q6HPRN docusate calcium (SURFAK) capsule 240 mg 240 mg Oral QDAILYPRN HYDROcodone-acetaminophen (NORCO) 10-325 mg tablet 1 tablet 1 tablet Oral Q6HPRN 1 tablet at 12/24/18 0624 lactated ringers IV infusion 1,000 mL 1,000 mL IV Infusion ONCE LR 1000 mL + oxytocin 20 units IV Solution IV Infusion ONCE magnesium hydroxide (MILK OF MAGNESIA) 400 mg/5 mL suspension 30 mL 30 mL Oral QDAILYPRN ondansetron (ZOFRAN (PF)) injection 4 mg 4 mg Slow IV Push Q8HPRN rho(D) immune globulin (RHOGAM) syringe 300 mcg 300 mcg Intramuscular ONCE simethicone (GAS RELIEF) chewable tablet 160 mg 160 mg Oral PC+HSPRN bacitracin 500 unit/g ointment 30 g tube Topical (Apply To Affected Areas ) QID HYDROcodone-acetaminophen (NORCO 5) 5-325 mg tablet 1 tablet 1 tablet Oral Q6HPRN ondansetron (ZOFRAN (PF)) injection 4 mg 4 mg Slow IV Push Q6HPRN tranexamic acid (CYKLOKAPRON) 1,000 mg in NaCl 0.9% (NS) 250 mL piggyback 1 ,000 mg IV [id number] ABX 1,000 mg at 12/24/18 0401 hydrocortisone (ANUSOL-HC) suppository 25 mg 25 mg Rectal BIDPRN 25 mg at 12/22/18 0040 lactated ringers IV infusion 1,000 mL 1,000 mL IV Infusion CONTINUOUS 75 mL /hr at 12/23/18 72044,000 mL at 12/23/18 1229 morpHINE injection 2 mg 2 mg Slow IV Push Q5MIN PRN LABS: WBC x10^3 (/CMM) Date Value 12/24/2009 6.9 03/30/2004 4.9 WBC (10*3/L) Date Value 12/24/2018 7.65 12/22/2018 10.73 HGB Date Value 12/24/2018 7.8 g/dL (L) 12/22/2018 9.1 g/dL (L) 12/24/2009 9.2 G/DL (L) 03/30/2004 6.9 G/DL (L) HCT (%) Date Value 12/24/2018 25.2 (L) 12/22/2018 27.9 (L) 12/24/2009 30.9 (L) 03/30/2004 23.7 (L) PLT x10^3 (/CMM) Date Value 12/24/2009 203 03/30/2004 171 PLT (10*3/L) Date Value 12/24/2018 123 (L) 12/22/2018 134 (L) Assessment: Bri Boyd is a 33 year [id number]/p repeatLTCS on 12/21 at 37w5d for previous x 2 with oligohydramnios,complicated byGlanzmann's thrombasthenia. Patient is recovering well:hemodynamically stable, good UOP, pain well-controlled, vitals within normal limits. Plan: Postoperative Review: - Admitted for: RCS due to oligohydramnios - Surgical procedure:Repeat Lower uterine transverse sectionwith no extension - Skin incision:pfannenstiel - Closure:latricia - Estimated blood loss:800mL - Intraoperative Complications:none - Clinical trials:none - Urine output:adequate - Preop H/H:10.5/32.7 - Postop H/H:9.1/27.9 Glanzmanns Thrombasthenia - diagnosed at 2 YOA after mother gave her aspirin and suffered from bleeding, since has had a history ofbleeding from gums epistaxis, hematochezia, melena , easy bruising, menorrhagia requiring transfusion 3-4x/year of PRBCs -Menarche started at age 12 and requires multiple pads usually 10+ a day. She has tried IUD, OCP, and depo provera injections and did not get any benefit with continued heavy bleeding -surgeries including hernia repair, wisdom teeth removal, ankle surgery. She reports bleeding after these surgeries requiring multiple transfusions -history of allergy to IV iron, but hemenote reports she can haveIV iron dextran - 57 different HLA Ab - Ab+ 2A/3B - 3-4 potential HLA matched donors - Plasma exchange unlikely to be beneficial (no evidence) - Per hematology, patient to receive TXA TID until discharge. Novo7 for 24h after delivery. Patient is at risk for delayed hemorrhage up to 3 weeks after delivery. Acute blood loss anemia - Patient with history of coagulopathy, see above problem - Hgb: 10.3 (preop) -> 10.5 (admission) -> 9.0 (POD#0 immediate) -> 9.1 (POD#1) -> 7.8 (POD#3) Postoperative care: - Diet: Advance as tolerated - Fluid: Encourage oral intake - Activity: Encourage ambulation and incentive spirometry - Pain: [place] and Ibuprofen - DVT prophylaxis: SCDs and TEDs when not ambulating HCV - Viral load 5.4 million IU/mlComme08/02/18 Antepartum course reviewed - 1 h101,HIV, Hep B neg, Requ, VZVimmune,A positive/IATnegative, Pap ASCUS, HPV+ - Hgbplt: 10.5/ 32.7on 12/20/18 -[place] for MFM Discharge Planning - Contraception:Will discuss - Vaccines:MMR - [facility] - Dispo: Anticipate dischargePOD#3-4 Baby's Status - Female - APGARs2,8 - Weight: 3065 g - Location:Bedside Disposition: Patient meeting all milestones. POD#3. Stable for discharge today. No current bleeding. Ness Roberto MD PGY-2, Department of Obstetrics and Gynecology Pager# [phone] signed by Kyle Cordero at 12/24/2018 10 :23 AM CDT Associated attestation - Kyle Cordero - 12/24/2018 10:23 AM CDTAgree with plan, examined with resident.Miranda Al MD - 12/23/2018 3:58 PM CDT Progress Note 12/23/2018 3:58 PM Subjective: Patient has no complaints. She took her bandage off in the shower. Objective: Vitals: 12/22/18 1215 12/22/18 1615 12/23/18 0000 12/23/18 0800 BP: 135/75 (!) 145/81 136/78 133/86 Pulse: 66 74 78 68 Resp: 18 18 18 Temp: 37 C (98.6 F) 37 C (98.6 F) 36.9 C (98.4 F) 36.7 C (98 F) TempSrc: Oral Oral Axillary Oral SpO2: 98% 99% Weight: Height: Physical Exam: General: patient alert and in no acute distress HEENT: symmetric, negative for masses Lungs: unlabored breathing Cardiology: peripheral pulses intact and regular Abdomen: soft, non-tender, non-distended, no liver, spleen or abnormal masses palpated Incision: clean/dry, three latricia misplaced, removed, Steristrips applied. Extremities: no clubbing, cyanosis, or edema Neuro: patient moving all extremities, no facial droop : deferred Assessment: Bri Boyd is a 33 year old s/p RCS. Wound evaluated, steri-strips applied to areas of misplaced latricia. Plan: Continue routine care. Miranda Al MD Inna Mendoza MD - 12/23/2018 7:44 AM CDT POST-OPERATIVE PROGRESS NOTE 12/23/2018 7:44 AM Subjective: Overnight patient had no complaints. Her pain is well controlled on oral pain medications. She is tolerating a regular diet. She has passed flatus. She is ambulating without difficulty. Lochia is Scant. She is urinating without vanessa. Patient denies chest pain, SOB, n/v, headache, RUQ pain, vision changes, dizziness. Objective: VITALS: Patient Vitals for the past 24 hrs: BP Temp Temp src Pulse Resp SpO2 12/23/18 0000 136/78 36.9 C (98.4 F) Axillary 78 99 % 12/22/18 1615 (!) 145/81 37 C (98.6 F) Oral 74 18 98 % 12/22/18 1215 135/75 37 C (98.6 F) Oral 66 18 12/22/18 0930 107/60 69 18 I/O: Intake/Output Summary (Last 24 hours) at 12/23/2018 0744 Last data filed at 12/22/2018 1821 Gross per 24 hour Intake 2078 ml Output Net 2078 ml PE: General: patient alert and in no acute distress Lungs: unlabored breathing Abdomen: normal tenderness to palpation, soft. Fundus is firm and at umbilicus Incision: Bandage clean, dry, and intact, no erythema or induration Extremities: SCDs not in place : deferred MEDS: Current Facility-Administered Medications Medication Dose Route Frequency Last Rate Last Dose HYDROcodone-acetaminophen (NORCO 5) 5-325 mg tablet 1 tablet 1 tablet Oral Q6HPRN HYDROcodone-acetaminophen (NORCO 5) 5-325 mg tablet 2 tablet 2 tablet Oral Q4HPRN 2 tablet at12/23/18 0407 ondansetron (ZOFRAN (PF)) injection 4 mg 4 mg Slow IV Push Q6HPRN tranexamic acid (CYKLOKAPRON) 1,000 mg in NaCl 0.9% (NS) 250 mL piggyback 1 ,000 mg IV [id number] ABX 1,000 mg at 12/23/18 0404 docusate (COLACE) capsule 100 mg 100 mg Oral DAILY 100 mg at 12/22/18 0919 hydrocortisone (ANUSOL-HC) suppository 25 mg 25 mg Rectal BIDPRN 25 mg at 12/22/18 0040 lactated ringers IV infusion 1,000 mL 1,000 mL IV Infusion CONTINUOUS Stopped at 12/21/18 0630 lactated ringers IV infusion 1,000 mL 1,000 mL IV Infusion CONTINUOUS Stopped at 12/21/18 1130 morpHINE 2 mg/mL LOAD & RESCUE INJECTION SYRG Slow IV Push SEE- INSTRUCTIONS morpHINE 30 mg/30 mL (fixed dose) RETORT LOADER injection Intravenous CONTINUOUS Stopped at 12/22/18 0356 morpHINE injection 2 mg 2 mg Slow IV Push Q5MIN PRN naloxone (NARCAN) injection 0.1 mg 0.1 mg Slow IV Push SEE-INSTRUCTIONS sennosides (SENOKOT) tablet 8.6 mg 8.6 mg Oral DAILY 8.6 mg at 12/22/18 0919 alum-mag hydroxide-simeth (MAALOX PLUS / MAG-AL PLUS) 200-200-20 mg/5 mL suspension 30 mL 30 mLOral Q6HPRN docusate calcium (SURFAK) capsule 240 mg 240 mg Oral QHSPRN magnesium hydroxide (MILK OF MAGNESIA) 400 mg/5 mL suspension 30 mL 30 mL Oral QDAILYPRN vitamin w/FA (PRENATABS RX) tablet 1 tablet 1 tablet Oral DAILY Stopped at 12/21/18 0900 LABS: WBC x10^3 (/CMM) Date Value 12/24/2009 6.9 03/30/2004 4.9 WBC (10*3/L) Date Value 12/22/2018 10.73 12/21/2018 10.14 HGB Date Value 12/22/2018 9.1 g/dL (L) 12/21/2018 9.0 g/dL (L) 12/24/2009 9.2 G/DL (L) 03/30/2004 6.9 G/DL (L) HCT (%) Date Value 12/22/2018 27.9 (L) 12/21/2018 27.9 (L) 12/24/2009 30.9 (L) 03/30/2004 23.7 (L) PLT x10^3 (/CMM) Date Value 12/24/2009 203 03/30/2004 171 PLT (10*3/L) Date Value 12/22/2018 134 (L) 12/21/2018 109 (L) Assessment: Bri Boyd is a 33 year old POD#2 s/p repeat LTCS on 12/21 at 37w5d for previous x 2 with oligohydramnios, complicated by Glanzmann's thrombasthenia. Patient is recovering well: hemodynamically stable, good UOP, pain well-controlled, vitals within normal limits. 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 She has tried IUD, OCP, and depo provera injections and did not get any benefit with continued heavy bleeding -surgeries including hernia repair, wisdom teeth removal, ankle surgery. She reports bleeding after these surgeries requiring multiple transfusions -history of allergy to IV iron, but hemenote reports she can haveIV iron dextran - 57 different HLA Ab - Ab+ 2A/3B - 3-4 potential HLA matched donors - Plasma exchange unlikely to be beneficial (no evidence) - Per hematology, patient to receive TXA TID until discharge. Novo7 for 24h after delivery (last dose just administered). Patient is at risk for delayed hemorrhage up to 3 weeks after delivery Postoperative care: - Diet: Advance as tolerated - Fluid: Encourage oral intake - Activity: Encourage ambulation and incentive spirometry - Pain: [place] and Ibuprofen - DVT prophylaxis: SCDs and TEDs when not ambulating HCV - Viral load 5.4 million IU/mlComme08/02/18 Antepartum course reviewed - 1 h101,HIV, Hep B neg, Requ, VZVimmune,A positive/IATnegative, Pap ASCUS, HPV+ - Hgbplt: 10.5/ 32.7on 12/20/18 -[place] for MFM Discharge Planning - Contraception: Will discuss - Vaccines: MMR - Follow up in 5-7 days for incision check and/or staple removal at [facility] - Follow Up: follow-up in 3-6 weeks at [facility] - Dispo: Anticipate discharge POD#3-4 Baby's Status - APGARs 2, 8 - Weight: 3065 g - Location: ISCU DISPO: Patient meeting all milestones, to remain admitted at least through POD#3 Inna Blevins MD Associated attestation - Ree Lizama MD - 12/23/2018 1:19 PM CDTI personally examined the patient on 12/23/[address] Kay's resident note as written . Describes what appears to be normal lochia. Will shower today and take dressing off. I actively participated in the decision- making process. Please see the resident's note for additional details. Flor Ellis MBBS - 12/22/2018 10:52 AM CDTHematology Short consult Progress Note Date of Service: 12/22/2018 Patient was chart reviewed and seen in room 24-hour Events Patient is getting her last dose of Novaseven this morning . Bleeding under control- very scant She has not received any platelet transfusion overnight Brief assessment: Bri Boyd is a 33 year old female with the following active problems : #Glanzmann's thrombasthenia #Acute Anemia #Mild post-operative thrombocytopenia #Post- state Recommendations: No further doses of Novoseven are required. - Prescribe Tranexamic acid 1gm every 8 hours for the next 48 hours . -Keep the patient in hospital for the next 48 hrs for observation- (h/o late post hemorrhage) Discussed with Haematology Faculty , from Blood Bank and OBGYN team . Flor Ellis MD, Oncology Fellow, Dept of Hematology/Oncology, PGY4 Pager: [phone] Associated attestation - Blake Palacios - 12/23/2018 2:07 PM CDTAfter discussion with Dr. Ellis, I examined this patient. I agree with resident' s note as written. Gilson Upton MD - 12/22/2018 9:22 AM CDT POST-OPERATIVE PROGRESS NOTE 12/22/2018 9:22 AM Subjective: Overnight patient had no complaints. Her pain is well controlled on oral pain medications. She is tolerating a regular diet. She has passed flatus. She is ambulating without difficulty. Lochia is Scant. She is urinating without vanessa. Patient denies chest pain, SOB, n/v, headache, RUQ pain, vision changes, dizziness. Objective: VITALS: Patient Vitals for the past 24 hrs: BP Temp Temp src Pulse Resp SpO2 Height Weight 12/22/18 0700 118/75 66 18 98 % 12/22/18 0400 130/79 36.9 C (98.4 F) Axillary 73 96 % 12/22/18 0100 128/77 37 C (98.6 F) Axillary 72 96 % 12/21/18 2330 131/73 74 97 % 12/21/18 2100 124/69 69 97 % 12/21/18 2000 121/65 36.8 C (98.2 F) Axillary 73 95 % 12/21/18 1800 125/69 36.8 C (98.2 F) Oral 75 18 98 % 12/21/18 1700 130/82 36.7 C (98.1 F) Oral 84 18 99 % 12/21/18 1630 126/81 79 18 98 % 12/21/18 1600 124/79 76 17 97 % 12/21/18 1530 (!) 147/89 76 15 96 % 12/21/18 1500 131/83 72 16 95 % 12/21/18 1430 139/75 74 16 95 % 12/21/18 1400 134/83 76 16 95 % 12/21/18 1330 132/83 37.1 C (98.7 F) Oral 76 16 95 % 12/21/18 1300 (!) 134/95 81 16 95 % 12/21/18 1245 134/74 83 18 97 % 12/21/18 1230 (!) 139/116 84 18 97 % 12/21/18 1215 (!) 144/82 80 16 94 % 12/21/18 1200 134/86 93 19 95 % 12/21/18 1145 136/77 37.2 C (98.9 F) Oral 94 25 12/21/18 1030 1.651 m (5' 5") 108.6 kg (239 lb 8 oz) 12/21/18 0951 (!) 141/85 37.2 C (98.9 F) Oral 90 18 100 % 12/21/18 0948 (!) 151/87 37.2 C (98.9 F) Oral 93 18 100 % 12/21/18 0936 138/86 37.1 C (98.8 F) Oral 74 18 100 % 12/21/18 0933 (!) 143/87 37.1 C (98.8 F) Oral 81 18 100 % I/O: Intake/Output Summary (Last 24 hours) at 12/22/2018 0922 Last data filed at 12/22/2018 0356 Gross per 24 hour Intake 3012.6 ml Output 3015 ml Net -2.4 ml PE: General: patient alert and in no acute distress Lungs: clear to auscultation bilaterally Cardiology: regular rate and rhythm, no murmur Abdomen: normal tenderness to palpation, soft, bowel sounds present. Fundus is firm and at umbilicus Incision: Clean, dry, and intact, no erythema or induration Extremities: no clubbing, cyanosis, or edema : deferred MEDS: Current Facility-Administered Medications Medication Dose Route Frequency Last Rate Last Dose HYDROcodone-acetaminophen (NORCO 5) 5-325 mg tablet 1 tablet 1 tablet Oral Q6HPRN HYDROcodone-acetaminophen (NORCO 5) 5-325 mg tablet 2 tablet 2 tablet Oral Q4HPRN 2 tablet at12/22/18 0827 ondansetron (ZOFRAN (PF)) injection 4 mg 4 mg Slow IV Push Q6HPRN docusate (COLACE) capsule 100 mg 100 mg Oral DAILY 100 mg at 12/22/18 0919 hydrocortisone (ANUSOL-HC) suppository 25 mg 25 mg Rectal BIDPRN 25 mg at 12/22/18 0040 lactated ringers IV infusion 1,000 mL 1,000 mL IV Infusion CONTINUOUS Stopped at 12/21/18 0630 lactated ringers IV infusion 1,000 mL 1,000 mL IV Infusion CONTINUOUS Stopped at 12/21/18 1130 LR 1000 mL + oxytocin 20 units IV Solution IV Infusion CONTINUOUS 125 mL/ hr at 12/21/18 1800 morpHINE 2 mg/mL LOAD & RESCUE INJECTION SYRG Slow IV Push SEE- INSTRUCTIONS morpHINE 30 mg/30 mL (fixed dose) RETORT LOADER injection Intravenous CONTINUOUS Stopped at 12/22/18 0356 morpHINE injection 2 mg 2 mg Slow IV Push Q5MIN PRN naloxone (NARCAN) injection 0.1 mg 0.1 mg Slow IV Push SEE-INSTRUCTIONS oxytocin (PITOCIN) 40 Units in lactated ringers 1,000 mL IV infusion IV Infusion PRN sennosides (SENOKOT) tablet 8.6 mg 8.6 mg Oral DAILY 8.6 mg at 12/22/18 0919 alum-mag hydroxide-simeth (MAALOX PLUS / MAG-AL PLUS) 200-200-20 mg/5 mL suspension 30 mL 30 mLOral Q6HPRN docusate calcium (SURFAK) capsule 240 mg 240 mg Oral QHSPRN magnesium hydroxide (MILK OF MAGNESIA) 400 mg/5 mL suspension 30 mL 30 mL Oral QDAILYPRN vitamin w/FA (PRENATABS RX) tablet 1 tablet 1 tablet Oral DAILY Stopped at 12/21/18 0900 LABS: WBC x10^3 (/CMM) Date Value 12/24/2009 6.9 03/30/2004 4.9 WBC (10*3/L) Date Value 12/21/2018 10.14 12/20/2018 10.40 HGB Date Value 12/21/2018 9.0 g/dL (L) 12/20/2018 10.5 g/dL (L) 12/24/2009 9.2 G/DL (L) 03/30/2004 6.9 G/DL (L) HCT (%) Date Value 12/21/2018 27.9 (L) 12/20/2018 32.7 (L) 12/24/2009 30.9 (L) 03/30/2004 23.7 (L) PLT x10^3 (/CMM) Date Value 12/24/2009 203 03/30/2004 171 PLT (10*3/L) Date Value 12/21/2018 109 (L) 12/20/2018 146 (L) Assessment: Bri Boyd is a 33 year old POD#1 s/p repeat LTCS on 12/21 at 37w5d for previous x 2 with oligohydramnios, complicated by Glanzmann's thrombasthenia. Patient is recovering well: hemodynamically stable, good UOP, pain well-controlled, vitals within normal limits. 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 She has tried IUD, OCP, and depo provera injections and did not get any benefit with continued heavy bleeding - surgeries including hernia repair, wisdom teeth removal, ankle surgery. She reports bleeding afterthese surgeries requiring multiple transfusions - history of allergy to IV iron, but hemenote reports she can haveIV iron dextran - 57 different HLA Ab - Ab+ 2A/3B - 3-4 potential HLA matched donors - Plasma exchange unlikely to be beneficial (no evidence) - Per hematology, patient to receive TXA TID until discharge. Novo7 for 24h after delivery (last dose just administered). Patient is at risk for delayed hemorrhage up to 3 weeks after delivery Postoperative care: - Diet: Advance as tolerated - Fluid: Encourage oral intake - Activity: Encourage ambulation and incentive spirometry - Pain: [place] and Ibuprofen - DVT prophylaxis: SCDs and TEDs when not ambulating HCV - Viral load 5.4 million IU/mlComme 08/02/18 Antepartum course reviewed - 1 h 101, HIV, Hep B neg, Requ, VZVimmune, A positive/IAT negative, Pap ASCUS, HPV+ - Hgb plt: 10.5 / 32.7 on 12/20/18 - [place] for MFM Discharge Planning - Contraception: Will discuss - Vaccines: MMR - Follow up in 5-7 days for incision check and/or staple removal at [facility] - Follow Up: follow-up in 3-6 weeks at [facility] - Dispo: Anticipate discharge POD#3-4 Baby's Status - APGARs 2, 8 - Weight: 3065 g - Location: ISCU DISPO: Patient to remain admitted at least through POD#3 Gilson Upton MD Associated attestation - Oksana Storey MD - 12/22/2018 6:00 PM CDTI discussed and evaluated this patient with Dr. Upton on 12/22/2018. Patient is POD#1 from repeat . No e/o active bleeding. Will give TXA TID for today and further Novoseven PRN only. Patient to remain on L&D for close observation. Please see the resident's note for additional details.documented in this encounter Plan of Treatment Date Type Specialty Care Team Description 12/28/2018 Nurse Visit OB Satellites Visit, [facility] Nurse 01/11/2019 Routine Visit OB Satellites Rimma Duran, [employer] [address] [place] [address] [phone] Name Type Priority Associated Diagnoses Date/Time SURGICAL PATHOLOGY EXAM LAB STAT 12/21/2018 10:36 AM CDT Name Type Priority Associated Order Schedule Diagnoses SURGICAL PATHOLOGY EXAM LAB Routine ONCE for 1 Occurrences starting 12/21/2018, 1 completed aPTT LAB SUSI ONCE for 1 Occurrences starting 12/22/2018 until 12/22/2018 PROTHROMBIN TIME / INR LAB SUSI ONCE for 1 Occurrences starting 12/22/2018 until 12/22/2018 THROMBIN TIME LAB SUSI ONCE for 1 Occurrences starting 12/22/2018 until 12/22/2018 Delayed Administration IMMUNIZATION/ Routine ONCE for 1 until Day of Discharge- INJECTION Occurrences starting MMR 12/24/2018 until (MEASLES/MUMPS/RUBELLA) 12/24/2018 VACCINE Health Maintenance Due Date Last Done Comments PNEUMOCOCCAL 0-64 YEARS COMBINED SERIES (1 1990 of 1 - PPSV23) INFLUENZA VACCINE (#1) 2018 PAP SMEAR 05/29/2021 05/29/2018, 03/30/2004 DTaP,Tdap,and Td Vaccines (2 - Td) 10/15/2028 10/15/2018 documented as of this encounter Implants Implanted Type Area Spool Tender Device Shelf Model / Identifier Expiration Date Serial / Lot Nail T2 Ankle Arthrodesis [id number] Left [place] F & A #[id number] - S0 NAIL Left: Tamanna 09/14/2021 [id number] / Implanted: Qty: 1 on 03/03/2017 by Dewayne Felix MD at [facility] Ankle 0 / [id number] Pin, [place] Self-Drilling Half [place] 5mm 150 X 25mm #[id number] PIN Left: [place] 08/15/2019 [id number] / Implanted: Qty: 1 on 11/25/2016 by Dewayne Felix MD at [facility] Ankle 0000 / [id number] Hexapod Strut PIN Left: Tamanna 11/25/2026 4935-0-040 / Implanted: Qty: 2 on 11/25/2016 by Dewayne Felix MD at [facility] Ankle 0000 / 000 Pin, [place] Self-Drilling Half [place] 5mm 150 X 25mm #[id number] PIN Left: Tamanna 07/15/2021 [id number] / Implanted: Qty: 1 on 11/25/2016 by Dewayne Felix MD at [facility] Ankle 0000 / [id number] Pin, [place]anna Self-Drilling Half [place] 5mm 150 X 25mm #[id number] PIN Left: [place] 04/16/2021 [id number] / Implanted: Qty: 1 on 11/25/2016 by Dewayne Felix MD at [facility] Ankle 0000 / [id number] Pin, [place] Self-Drilling Half [place] 5mm 150 X 25mm #[id number] PIN Left: [place] 04/16/2021 [id number] / Implanted: Qty: 1 on 11/25/2016 by Dewayne Felix MD at [facility] Ankle 0000 / [id number] Pin, [place] Self-Drilling Half [place] 5mm 150 X 25mm #[id number] PIN Left: Tamanna 07/15/2021 [id number] / Implanted: Qty: 1 on 11/25/2016 by Dewayne Felix MD at [facility] Ankle 0000 / [id number] Wire [place] - Medium 1.5 To 2.0 Mm PIN Left: [place] 11/25/2026 4933-1- 002 / Implanted: Qty: 2 on 11/25/2016 by Dewayne Felix MD at [facility] Ankle 0000 / 0000 Wire [place] Adapter Short PIN Left: [place] 11/25/2026 4933-1-004 / Implanted: Qty: 2 on 11/25/2016 by Dewayne Felix MD at [facility] Ankle 0000 / 0000 [place] Pin Adaptor, Short 6mm # 4933-1-020 - S0000 PIN Left: [place] 2019 4933-1-020 / Implanted: Qty: 3 on 11/25/2016 by Dewayne Felix MD at [facility] Ankle 0000 / 0000 Hexapod Strut Medium PIN Left: [place] 4935-0-030 / Implanted: Qty: 6 on 11/25/2016 by Dewayne Felix MD at [facility] Ankle 0000 / 0000 Foot Arch RING Left: [place] 11/25/2026 4934-6-180 / Implanted: Qty: 1 on 11/25/2016 by Dewayne Felix MD at [facility] Ankle 0000 / 0000 Screw, [place] 5 X 30mm Fully Thrded Locking #[id number] - S0 SCREW Left: Tamanna 06/14/2021 [id number] / Implanted: Qty: 1 on 03/03/2017 by Dewayne Felix MD at [facility] Ankle 0 / [id number] Screw, [place] 5 X 50mm Fully Thrded Locking #1896-5050s - S0 SCREW Left: Tamanna 10/14/2020 [id number] / Implanted: Qty: 1 on 03/03/2017 by Dewayne Felix MD at [facility] Ankle 0 / [id number] Screw Headless Compression [id number] Tamanna #[id number] - S0 SCREW Left: Tamanna 03/03/2027 [id number] / Implanted: Qty: 1 on 03/03/2017 by Dewayne Felix MD at [facility] Ankle 0 / 0 K Wire [id number] WIRE Left: [place] 11/25/2026 [id number] / Implanted: Qty: 2 on 11/25/2016 by Dewayne Felix MD at [facility] Ankle 0000 / 0000 Wire With [place] - Kathryn 2.0 X 450 Mm WIRE Left: Tamanna 11/25/2026 4933-8- 040 / Implanted: Qty: 2 on 11/25/2016 by Dewayne Felix MD at [facility] Ankle 0000 / 0000 [place] External Fixation 1.5mm-2mm Kathryn Short Carbon #4933-1-001 - S0000 Left: Tamanna 11/25/2026 4933-1-001 / Implanted: Qty: 4 on 11/25/2016 by Dewayne Felix MD at [facility] Ankle 0000 / 0000 [place] External Fixation Long Carbon 40mml Threaded #4933-1-021 - S0000 Left: [place] 11/25/2026 4933-1-021 / Implanted: Qty: 2 on 11/25/2016 by Dewayne Felix MD at [facility] Ankle 0000 / 0000 Set Ring External Fixation Full 180mm Id Carbon Holex5 F/Foot & Ankle Fixation #4933-5-180 - S0000 Left: [place] 11/25/2026 4933-5-180 / Implanted: Qty: 3 on 11/25/2016 by Dewayne Felix MD at [facility] Ankle 0000 / 0000 Ring External Fixation 180mm #4934-4-180 - S0000 Left: [place] 2026 4934-4-180 / Implanted: Qty: 1 on 11/25/2016 by Dewayne Felix MD at [facility] Ankle 0000 / 0000 Nut External Fixation 6mm Kathryn Short #4933-1-010 - S0000 Left: Tamanna 4933-1-010 / Implanted: Qty: 25 on 11/25/2016 by Dewayne Felix MD at [facility] Ankle 0000 / 0000 [place] External Fixation 6mm Kathryn Carbon #4933-1-702 - S000 Left: [place] 11/25/2026 4933-1-702 / Implanted: Qty: 14 on 11/25/2016 by Dewayne Felix MD at [facility] Ankle 000 / 0000 Washer External Fixation 4mm Kathryn Yellow #4933-1-712 - S0000 Left: [place] 11/25/2026 4933-1-712 / Implanted: Qty: 1 on 11/25/2016 by Dewayne Felix MD at [facility] Ankle 0000 / 0000 Screw, Fixos Headless Compression [id number] Tamanna #[id number] - S0 Left: Tamanna 03/03/2027 [id number] / Implanted: Qty: 1 on 03/03/2017 by Dewayne Felix MD at [facility] Ankle 0 / 0 documented as of this encounter Procedures Procedure Name Priority Date/Time Associated Comments Diagnosis CBC WITH DIFFERENTIAL Routine 12/24/2018 4:13 Results for this AM CDT procedure are in the results section. CBC WITH DIFF Routine 12/24/2018 4:13 Results for this AM CDT procedure are in the results section. CBC WITH DIFFERENTIAL Routine 12/22/2018 10:41 Results for this AM CDT procedure are in the results section. CBC WITH DIFF Routine 12/22/2018 10:41 Results for this AM CDT procedure are in the results section. LAB ON A CART SUSI 12/21/2018 3:22 Results for this THROMBELASTOGRAPH PM CDT procedure are in CITRATED KAOLIN W/HEPARIN the results section. CBC WITH DIFFERENTIAL Routine 12/21/2018 11:10 Results for this AM CDT procedure are in the results section. CBC WITH DIFF Routine 12/21/2018 11:10 Results for this AM CDT procedure are in the results section. VENOUS CORD GAS SUSI 12/21/2018 11:07 Results for this AM CDT procedure are in the results section. ARTERIAL CORD GAS SUSI 12/21/2018 11:07 Results for this AM CDT procedure are in the results section. TRANSFUSE PLATELETS Routine 12/21/2018 10:07 AM CDT TRANSFUSE PLATELETS Routine 12/21/2018 10:04 AM CDT SECTION 12/21/2018 9:43 s/p repeat c/s AM CDT PREPARE PLATELETS Routine 12/21/2018 8:34 Results for this AM CDT procedure are in the results section. PREPARE PLATELETS SUSI 12/21/2018 8:34 Results for this AM CDT procedure are in the results section. LAB ON A CART SUSI 12/21/2018 8:18 Results for this THROMBELASTOGRAPH AM CDT procedure are in CITRATED KAOLIN the results section. CBC WITH DIFFERENTIAL Routine 12/20/2018 10:45 Results for this PM CDT procedure are in the results section. CBC WITH DIFF Routine 12/20/2018 10:45 Results for this PM CDT procedure are in the results section. RHO (D) IMMUNE GLOBULIN Routine 12/20/2018 10:24 Results for this PM CDT procedure are in the results section. TYPE AND SCREEN Routine 12/20/2018 10:24 Results for this PM CDT procedure are in the results section. GALV ONLY - SYPHILIS SUSI 12/20/2018 10:16 Results for this IGG/IGM PM CDT procedure are in the results section. HEPATITIS B SURFACE SUSI 12/20/2018 10:16 Results for this ANTIGEN PM CDT procedure are in the results section. documented in this encounter Results CBC WITH DIFFERENTIAL (12/24/2018 4:13 AM CDT) WBC 7.65 4.30 - 11.10 [facility] 10*3/L SERVICES RBC 2.63 (L) 3.93 - 5.25 [facility] 10*6/L SERVICES HGB 7.8 (L) 11.6 - 15.0 [facility] g/dL SERVICES HCT 25.2 (L) 35.7 - 45.2 % [facility] SERVICES MCV 95.8 (H) 80.6 - 95.5 fL [facility] MCH 29.7 25.9 - 32.8 pg [facility] MCHC 31.0 (L) 31.6 - 35.1 [facility] g/dL SERVICES RDW-SD 52.0 (H) 39.0 - 49.9 fL [facility] RDW-CV 15.2 12.0 - 15.5 % [facility] PLT 123 (L) 166 - 358 [facility] 10*3/L SERVICES MPV 10.8 9.5 - 12.9 fL [facility] SERVICES NRBC/100 WBC 0.0 0.0 - 10.0 /100 [facility] WBCs SERVICES NRBC x10^3 <0.01 10*3/L [facility] GRAN MAT (NEUT) % 73.9 % [facility] IMM GRAN % 0.50 % [facility] LYMPH % 15.2 % [facility] MONO % 7.2 % [facility] EOS % 3.1 % [facility] BASO % 0.1 % [facility] GRAN MAT x10^3(ANC) 5.65 1.88 - 7.09 [facility] 10*3/uL SERVICES IMM GRAN x10^3 0.04 0.00 - 0.06 [facility] 10*3/uL SERVICES LYMPH x10^3 1.16 (L) 1.32 - 3.29 [facility] 10*3/uL SERVICES MONO x10^3 0.55 0.33 - 0.92 [facility] 10*3/uL SERVICES EOS x10^3 0.24 0.03 - 0.39 [facility] 10*3/uL SERVICES BASO x10^3 <0.03 0.01 - 0.07 [facility] 10*3/uL SERVICES Specimen Blood - VENOUS Performing Organization Address City/State/Zipcode Phone Number [facility] CLIA: [id number], [address] [place] [address] [facility] CBC WITH DIFFERENTIAL (12/22/2018 10:41 AM CDT) WBC 10.73 4.30 - 11.10 [facility] 10*3/L SERVICES RBC 3.03 (L) 3.93 - 5.25 [facility] 10*6/L SERVICES HGB 9.1 (L) 11.6 - 15.0 [facility] g/dL SERVICES HCT 27.9 (L) 35.7 - 45.2 % [facility] MCV 92.1 80.6 - 95.5 fL [facility] MCH 30.0 25.9 - 32.8 pg [facility] MCHC 32.6 31.6 - 35.1 [facility] g/dL SERVICES RDW-SD 49.8 39.0 - 49.9 fL [facility] SERVICES RDW-CV 15.0 12.0 - 15.5 % [facility] SERVICES PLT 134 (L) 166 - 358 [facility] 10*3/L SERVICES MPV 11.2 9.5 - 12.9 fL [facility] SERVICES NRBC/100 WBC 0.0 0.0 - 10.0 /100 [facility] WBCs SERVICES NRBC x10^3 <0.01 10*3/L [facility] SERVICES GRAN MAT (NEUT) % 85.8 % [facility] IMM GRAN % 1.10 % [facility] LYMPH % 6.5 % [facility] MONO % 5.1 % [facility] EOS % 1.3 % [facility] BASO % 0.2 % [facility] GRAN MAT x10^3(ANC) 9.20 (H) 1.88 - 7.09 [facility] 10*3/uL SERVICES IMM GRAN x10^3 0.12 (H) 0.00 - 0.06 [facility] 10*3/uL SERVICES LYMPH x10^3 0.70 (L) 1.32 - 3.29 [facility] 10*3/uL SERVICES MONO x10^3 0.55 0.33 - 0.92 [facility] 10*3/uL SERVICES EOS x10^3 0.14 0.03 - 0.39 [facility] 10*3/uL SERVICES BASO x10^3 <0.03 0.01 - 0.07 [facility] 10*3/uL SERVICES Specimen Blood - VENOUS Performing Organization Address City/[facility]/Zipcode Phone Number [facility] CLIA: [id number], [address] [place] [address] [phone] [facility] LAB ON A CART THROMBELASTOGRAPH CITRATED KAOLIN W/HEPARIN (12/21/2018 3:22 PM CDT) R 6.8 5.0 - 10.0 min [facility] TEG K 5.2 (H) 1.0 - 3.0 min [facility] Angle 39.4 (L) 53.0 - 72.0 deg [facility] MA 35.7 (L) 50.0 - 70.0 min [facility] Specimen Blood - ARTERIAL Narrative Performed At Performing Organization Address City/State/Zipcode Phone Number [facility] CLIA: [id number], [address] [place] [phone] [facility] CBC WITH DIFFERENTIAL (12/21/2018 11:10 AM CDT) WBC 10.14 4.30 - 11.10 [facility] 10*3/L SERVICES RBC 2.99 (L) 3.93 - 5.25 [facility] 10*6/L SERVICES HGB 9.0 (L) 11.6 - 15.0 [facility] g/dL SERVICES HCT 27.9 (L) 35.7 - 45.2 % [facility] MCV 93.3 80.6 - 95.5 fL [facility] MCH 30.1 25.9 - 32.8 pg [facility] MCHC 32.3 31.6 - 35.1 [facility] g/dL SERVICES RDW-SD 50.5 (H) 39.0 - 49.9 fL [facility] RDW-CV 15.1 12.0 - 15.5 % [facility] PLT 109 (L) 166 - 358 [facility] 10*3/L SERVICES MPV 10.5 9.5 - 12.9 fL [facility] NRBC/100 WBC 0.0 0.0 - 10.0 /100 [facility] WBCs SERVICES NRBC x10^3 <0.01 10*3/L [facility] GRAN MAT (NEUT) % 73.2 % [facility] IMM GRAN % 0.80 % [facility] LYMPH % 20.1 % [facility] MONO % 4.9 % [facility] EOS % 0.9 % [facility] BASO % 0.1 % [facility] GRAN MAT x10^3(ANC) 7.42 (H) 1.88 - 7.09 [facility] 10*3/uL SERVICES IMM GRAN x10^3 0.08 (H) 0.00 - 0.06 [facility] 10*3/uL SERVICES LYMPH x10^3 2.04 1.32 - 3.29 [facility] 10*3/uL SERVICES MONO x10^3 0.50 0.33 - 0.92 [facility] 10*3/uL SERVICES EOS x10^3 0.09 0.03 - 0.39 [facility] 10*3/uL SERVICES BASO x10^3 <0.03 0.01 - 0.07 [facility] 10*3/uL SERVICES Specimen Blood - ARTERIAL Performing Organization Address City/State/Zipcode Phone Number [facility] CLIA: [id number], [address] [place], [place] [address] [phone] [facility] VENOUS CORD GAS (12/21/2018 11:07 AM CDT) VENOUS BASE EXCESS, -6.8 mEq/L [facility] CORD SERVICES VENOUS PH, CORD 7.28 7.25 - 7.45 [facility] VENOUS PC02, CORD 44 27 - 49 mmHg [facility] VENOUS PO2, CORD 42 (H) 17 - 41 mmHg [facility] VENOUS BICARBONATE, 20 12 - 29 mEq/L [facility] CORD SERVICES Specimen Blood - VENOUS Performing Organization Address City/State/Zipcode Phone Number [facility] CLIA: [id number], [address] [place] [phone] [facility] ARTERIAL CORD GAS (12/21/2018 11:07 AM CDT) [facility] BASE EXCESS, CORD -8.2 mEq/L [facility] AC PH, CORD (BEAKER) 7.18 7.18 - 7.38 [facility] PC02, CORD 57 32 - 66 mmHg [facility] PO2, CORD 12 10 - 30 mmHg [facility] BICARBONATE, CORD 21 17 - 27 mEq/L [facility] Specimen Blood - ARTERIAL Performing Organization Address City/State/Zipcode Phone Number [facility] CLIA: [id number], [address] [place] [address] [phone] [facility] Prepare Platelets (in units): 1 Units~Indication: 4) Evidence of platelet dysfunction and no response to DDAVP or cryoprecipitate with active hemorrhage or at risk for bleeding (12/21/2018 8:34 AM CDT) [facility] Unit Blood Type O Pos LAB ISBT Blood Type Code 5100 LAB Unit Number [id number] LAB Blood Expiration Date & LAB Time Status Information Issued LAB Product Identification Platelets LAB Product Code [id number] LAB Comment: Performed at [facility] Laboratory Services - [facility] Blood [place] [address] Toll Free: [phone] CLIA No. [id number] Specimen Performing Organization Address City/[facility] Phone Number [facility] LAB Prepare Platelets (in units): 1 Units~Indication: 1) Platelets < 10,000 for bleeding prophylaxis (12/21/2018 8:34 AM CDT) [facility] Unit Blood Type O Pos LAB ISBT Blood Type Code 5100 LAB Unit Number [id number] LAB Blood Expiration Date & LAB Time Status Information Issued LAB Product Identification Platelets LAB Product Code [id number] LAB Comment: Performed at [facility] Laboratory Services - [facility] Blood [place] [address] Toll Free: [phone] CLIA No. [id number] Specimen Performing Organization Address City/State/Zipcode Phone Number [facility] LAB LAB ON A CART THROMBELASTOGRAPH CITRATED KAOLIN (12/21/2018 8:18 AM CDT) R 5.9 5.0 - 10.0 min [facility] TEG K 4.9 (H) 1.0 - 3.0 min [facility] Angle 44.5 (L) 53.0 - 72.0 deg [facility] MA 38.7 (L) 50.0 - 70.0 min [facility] Specimen Blood - ARM, LEFT Narrative Performed At Performing Organization Address City/State/Zipcode Phone Number [facility] CLIA: [id number], [address] [place] [address] [phone] [facility] CBC WITH DIFFERENTIAL (12/20/2018 10:45 PM CDT) WBC 10.40 4.30 - 11.10 [facility] 10*3/L SERVICES RBC 3.55 (L) 3.93 - 5.25 [facility] 10*6/L SERVICES HGB 10.5 (L) 11.6 - 15.0 [facility] g/dL SERVICES HCT 32.7 (L) 35.7 - 45.2 % [facility] MCV 92.1 80.6 - 95.5 fL [facility] MCH 29.6 25.9 - 32.8 pg [facility] MCHC 32.1 31.6 - 35.1 [facility] g/dL SERVICES RDW-SD 50.7 (H) 39.0 - 49.9 fL [facility] RDW-CV 14.9 12.0 - 15.5 % [facility] PLT 146 (L) 166 - 358 [facility] 10*3/L SERVICES MPV 11.0 9.5 - 12.9 fL [facility] NRBC/100 WBC 0.0 0.0 - 10.0 /100 [facility] WBCs SERVICES NRBC x10^3 <0.01 10*3/L [facility] GRAN MAT (NEUT) % 76.1 % [facility] IMM GRAN % 0.40 % [facility] LYMPH % 16.3 % [facility] MONO % 6.2 % [facility] EOS % 0.8 % [facility] BASO % 0.2 % [facility] GRAN MAT x10^3(ANC) 7.93 (H) 1.88 - 7.09 [facility] 10*3/uL SERVICES IMM GRAN x10^3 0.04 0.00 - 0.06 [facility] 10*3/uL SERVICES LYMPH x10^3 1.69 1.32 - 3.29 [facility] 10*3/uL SERVICES MONO x10^3 0.64 0.33 - 0.92 [facility] 10*3/uL SERVICES EOS x10^3 0.08 0.03 - 0.39 [facility] 10*3/uL SERVICES BASO x10^3 <0.03 0.01 - 0.07 [facility] 10*3/uL SERVICES Specimen Blood - ARM, LEFT Performing Organization Address City/State/Zipcode Phone Number [facility] CLIA: [id number], [address] [place] [address] [facility] RHO (D) IMMUNE GLOBULIN (12/20/2018 10:24 PM CDT) Pathologist [facility] RHIG CANDIDATE? No- see comment LAB Comment: Patient is not a candidate for RhIg- Patient is Rh Positive. Performed at [facility] Laboratory Services - [facility] Blood [place] [address] Toll Free: [phone] CLIA No. [id number] Specimen Blood - VENOUS Performing Organization Address City/[facility] Phone Number [facility] LAB Type and Screen - ONCE Routine (12/20/2018 10:24 PM CDT) [facility] ABO & RH A POSITIVE LAB Comment: Performed at [facility] Laboratory Services - [facility] Blood [place] [address] Toll Free: [phone] CLIA No. [id number] IAT Negative LAB Comment: Performed at [facility] Laboratory Services - [facility] Blood [place] [address] Toll Free: [phone] CLIA No. [id number] Specimen Blood - VENOUS Performing Organization Address City/[facility]/Zipcode Phone Number D LAB GALV ONLY - SYPHILIS IGG/IGM (12/20/2018 10:16 PM CDT) Pathologist [facility] Syphilis IgG/IgM Non-reactive Non-reactive [facility] LABORATORY SERVICES Specimen Blood - ARM, LEFT Narrative Performed At Non-reactive - No serologic evidence of T. pallidum [facility] LABORATORY SERVICES infection. Cannot exclude incubating or early syphilis. Submit a second specimen in 2-4 weeks if syphilis is clinically suspected. Equivocal - Further testing to follow. Reactive - Further testing to follow. Performing Organization Address City/[facility]/Zipcode Phone Number [facility] LABORATORY SERVICES CLIA: [id number], [address] [place] [id number] [facility] Hepatitis B Surface Antigen (12/20/2018 10:16 PM CDT) HBsAg HEPATITIS B Negative [facility] LABORATORY SURFACE ANTIGEN SERVICES NEGATIVE HBsAg 0.06 [facility] LABORATORY Semi-Quantitative SERVICES Specimen Blood - ARM, LEFT Performing Organization Address City/[facility]/Zipcode Phone Number [facility] SERVICES CLIA: [id number], [address] [place] [id number] [facility] documented in this encounter Visit Diagnoses Diagnosis S/P section - Primary Other postprocedural status 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 37 weeks gestation of state, incidental Rubella non-immune status, antepartum Other specified complication, antepartum Research study patient: ECCCO: Group C Reserved for inherently not codable concepts WITHOUT codable children Multiparity History of section Other postprocedural status Anemia of mother in , antepartum Anemia, antepartum documented in this encounter Administered Medications Medication Order MAR Action Action Date Dose Rate Site bacitracin 500 unit/g ointment 30 g Given 12/23/2018 5:50 PM CDT tube Topical (Apply To Affected Areas), QID, First dose on 12/23/18 at 1600, Until Discontinued, Routine docusate calcium (SURFAK) capsule 240 mg Given 12/24/2018 7:55 AM CDT 240 mg 240 mg, Oral, QDAILYPRN, Starting 12/24/18 at 0127, Until Discontinued, Routine, Constipation HYDROcodone-acetaminophen (NORCO) 10-325 Given 12/24/2018 12:24 PM CDT 1 tablet mg tablet 1 tablet 1 tablet, Oral, Q6HPRN, Starting 12/24/18 at 0007, Until Discontinued, Routine, Pain (scale 7-10) Given 12/24/2018 6:24 AM CDT 1 tablet Given 12/24/2018 12:18 AM CDT 1 tablet hydrocortisone (ANUSOL-HC) suppository 25 mg Given 12/22/2018 12:40 AM CDT 25 mg 25 mg, Rectal, BIDPRN, Starting Mon12/21/18 at 2310, Until Discontinued, Routine, Rectal itching/pain lactated ringers IV infusion New Bag 12/23/2018 12:29 PM CDT 1,000 mL 75 mL /hr 1,000 mL at 75 mL/hr, 1,000 mL, IV Infusion, CONTINUOUS, Starting Mon12/21/18 at 1130, Until Discontinued, Routine, PACU magnesium hydroxide (MILK OF MAGNESIA) 400 Given 12/24/2018 7:55 AM CDT 30 mL mg/5 mL suspension 30 mL 30 mL, Oral, QDAILYPRN, Starting Mon12/24/18 at 0127, Until Discontinued, Routine, Constipation morpHINE injection 2 mg 2 mg, Slow IV Push, Q5MIN PRN, 5 doses, Starting Mon12/21/18 at 1126, Until Discontinued, Routine, Pain (scale 4-6), PACU ondansetron (ZOFRAN (PF)) injection 4 mg 4 mg, Slow IV Push, Q6HPRN, Starting 12/22/18 at 0830, Until Discontinued, Routine, Nausea and Vomiting (N/V) simethicone (GAS RELIEF) chewable tablet 160 Given 12/24/2018 7:55 AM CDT 160 mg mg 160 mg, Oral, PC+HSPRN, Starting Mon12/24/18 at 0127, Until Discontinued, Routine, Gas tranexamic acid (CYKLOKAPRON) 1,000 mg in Given 12/24/2018 4:01 AM CDT 1, 000 mg NaCl 0.9% (NS) 250 mL piggyback 1,000 mg, IV Piggyback, Q8H ABX, 7 doses, First dose on 12/22/18 at 1030, Last dose on Mon12/24/18 at 1030, 250 mL Given 12/23/2018 8:19 PM CDT 1,000 mg Given 12/23/2018 12:29 PM CDT 1,000 mg Medication Order MAR Action Action Date Dose Rate Site clindamycin in 5 % dextrose Given 12/21/2018 9:47 AM CDT 900 mg (CLEOCIN) 900 mg/50 mL Piggyback 900 mg 900 mg, IV Piggyback, O.R. 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, Duration of therapy: within 24 hours of surgery, Restricted use approved by: PROCESS AUTOMATION ENGINEER FACULTY coagulation factor viia recomb Given 12/21/2018 12:55 PM CDT 10,000 mcg (NOVOSEVEN) injection 10,000 mcg 10,000 mcg, Slow IV Push, ONCE, 1 dose, 12/21/18 at 1215, SUSI, Use approved by (Faculty and pager): Suresh SAUNDERS [id number], HEMATOLOGY/ONCOLOGY coagulation factor viia recomb Given 12/21/2018 3:27 PM CDT 10,000 mcg (NOVOSEVEN) injection 10,000 mcg 10,000 mcg, Slow IV Push, ONCE, 1 dose, Mon12/21/18 at 1500, SUSI, Use approved by (Faculty and pager): Suresh SAUNDERS [id number], HEMATOLOGY/ONCOLOGY coagulation factor viia recomb Given 12/22/2018 1:54 AM CDT 10,000 mcg (NOVOSEVEN) injection 10,000 mcg 10,000 mcg, Slow IV Push, ONCE, 1 dose, 12/22/18 at 0215, Routine, Use approved by (Faculty and pager): Suresh SAUNDERS [id number], HEMATOLOGY/ONCOLOGY coagulation factor viia recomb Given 12/22/2018 8:56 AM CDT 10,000 mcg (NOVOSEVEN) injection 10,000 mcg 10,000 mcg, Slow IV Push, ONCE, 1 dose, 12/22/18 at 0700, SUSI, Use approved by (Faculty and pager): Suresh SAUNDERS [id number], HEMATOLOGY/ONCOLOGY coagulation factor viia recomb Given 12/21/2018 9:13 PM CDT 9,000 mcg (NOVOSEVEN) injection 9,000 mcg 9,000 mcg, Slow IV Push, ONCE, 1 dose, 12/21/18 at 2145, Routine, Use approved by (Faculty and pager): Suresh SAUNDERS [id number], HEMATOLOGY/ONCOLOGY diphenhydrAMINE (BENADRYL) injection 25 mg Given 12/21/2018 8:46 AM CDT 25 mg 25 mg, Slow IV Push, ONCE, 1 dose, Mon12/21/18 at 0900, Routine docusate (COLACE) capsule 100 mg Given 12/23/2018 12:30 PM CDT 100 mg 100 mg, Oral, DAILY, First dose on 12/22/18 at 0900, Until Discontinued, Routine Given 12/22/2018 9:19 AM CDT 100 mg docusate calcium (SURFAK) capsule 240 mg Given 12/23/2018 8:15 PM CDT 240 mg 240 mg, Oral, QHSPRN, Starting Jeny 12/20/18 at 2045, Until 12/24/18 at 0127, Routine, Constipation gentamicin 388 mg in NaCl 0.9% (NS) 250 mL Given 12/21/2018 9:46 AM CDT 388 mg IV infusion 388 mg (5 mg/kg 77.6 kg Adjusted weight), IV Infusion, O.R. 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, Duration of therapy: within 24 hours of surgery HYDROcodone-acetaminophen (NORCO 5) 5-325 Given 12/22/2018 3:55 AM CDT 2 tablets mg tablet 2 tablet 2 tablet, Oral, Q6HPRN, Starting 12/22/18 at 0321, Until 12/22/18 at 0750, Routine, Pain (scale 7-10), If uncontrolled by Ibuprofen HYDROcodone-acetaminophen (NORCO 5) 5-325 Given 12/23/2018 8:15 PM CDT 2 tablets mg tablet 2 tablet 2 tablet, Oral, Q4HPRN, Starting 12/22/18 at 0800, Until 12/24/18 at 0007, Routine, Pain (scale 7-10), If uncontrolled by Ibuprofen Given 12/23/2018 4:34 PM CDT 2 tablets Given 12/23/2018 12:30 PM CDT 2 tablets lactated ringers IV infusion 500 New Bag 12/21/2018 7:30 AM CDT 500 mL 999 mL/hr mL at 999 mL/hr, 500 mL, IV Infusion, ONCE, 1 dose, Mon12/21/18 at 0730, Routine LR 1000 mL + oxytocin 20 units Dose/Rate Verify 12/21/2018 6:00 PM CDT 125 mL/hr IV Solution at 125 mL/hr, IV Infusion, CONTINUOUS, Starting Mon12/21/18 at 1200, Until 12/22/18 at 1159, SUSI New Bag 12/21/2018 4:24 PM CDT 125 mL/hr morpHINE 2 mg/mL LOAD & RESCUE INJECTION SYRG Given 12/21/2018 12:40 PM CDT Slow IV Push, Routine Given 12/21/2018 12:35 PM CDT morpHINE 30 mg/30 mL (fixed dose) RETORT LOADER New Bag 12/21/2018 8:39 PM CDT 30 mg injection New Bag 12/21/2018 12:16 PM CDT ondansetron (ZOFRAN (PF)) injection 4 mg Given 12/21/2018 9:53 PM CDT 4 mg 4 mg, Slow IV Push, PRN, 1 dose, Starting Mon12/21/18 at 1126, Until Mon12/21/18 at 2153, Routine, Nausea and Vomiting (N/V), PACU ondansetron (ZOFRAN (PF)) injection 4 mg Given 12/22/2018 2:00 AM CDT 4 mg 4 mg, Slow IV Push, ONCE, 1 dose, 12/22/18 at 0215, Routine vitamin w/FA (PRENATABS RX) Given 12/23/2018 8:16 PM CDT 1 tablet tablet 1 tablet 1 tablet, Oral, DAILY, First dose on Mon12/21/18 at 0900, Until Discontinued, Routine sennosides (SENOKOT) tablet 8.6 mg Given 12/23/2018 12:30 PM CDT 8.6 mg 8.6 mg, Oral, DAILY, First dose on 12/22/18 at 0900, Until Discontinued, Routine Given 12/22/2018 9:19 AM CDT 8.6 mg sodium citrate-citric acid (BICITRA) 500-334 Given 12/21/2018 9:47 AM CDT 30 mL mg/5 mL solution 30 mL 30 mL, Oral, PRE-PROCEDURE ONCE, 1 dose, Starting Mon12/21/18 at 0622, Until Mon12/21/18 at 0947, Routine, Surgery documented in this encounter Insurance Payer Benefit Plan / Subscriber ID Effective Dates Phone Address Type Group [facility] MEDICAID OF xxxxxxxxx 2018-Present [phone] [address] Medicaid [place] [id number] [place] [phone] (Home) [place] [address] documented as of this encounter Advance Directives Name Relationship Healthcare Agent Communication Relationship Geovanny Boyd Mother Primary healthcare agent [phone]
--- OUTSIDE RECORDS SUMMARY | 2019-07-09 07:32 | XMS REPORT | Summary of Care ---
:[address] [facility] Address [address] [place] [id number] Care Team Providers Name Role Phone Orthopedics, Tdc Unavailable Unavailable Max Velarde CARRIAGE DOGGER Primary Care Provider Reason for Visit Reason Comments Assessment incision is bleeding a lot Encounter Details Date Type Department Care Team Description 12/31/2018 Telephone [facility]- Rimma Duran, Assessment ( incision Beverly CARRIAGE DOGGER is bleeding a lot) [address] [facility] [address] [place] [address] [phone] Allergies Active Allergy Reactions Severity Noted Date Comments Aspirin Unknown - See comments 12/24/2009 Unable to take d/t clotting disorder. Penicillin Unknown - See comments 06/05/2016 documented as of this encounter (statuses as of 12/31/2018) Medications Medication Sig Dispensed Refills Start Date [...] bedtime as S/P needed for Gas. section furosemide (LASIX) Take 1 tablet by 3 tablet 0 12/29/2018 Active 40 mg mouth daily. tabletIndications: Essential hypertension, Pre-eclampsia in period, Lower extremity edema hydrALAZINE 10 mg Take 1 tablet by 12 tablet 0 12/29/2018 Active tabletIndications: mouth every 6 (six) Essential hours. 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 Bishop (cell [phone]) - Notify Pharamacy for Nova7 to be [...] Overview: Notice of research participation in the [facility] Trial: IRB # [id number]. [...] concerns, you may page the PRD at [phone]. Anemia of mother in , antepartum 11/19/2018 [...] as of this encounter (statuses as of 12/31/2018) Resolved Problems Problem Noted Date Resolved Date Threatened 11/22/2018 11/22/2018 Anemia of mother in , antepartum 08/02/2018 10/09/2018 Nausea and vomiting during 06/26/2018 10/09/2018 Headache in 06/26/2018 10/09/2018 Susceptible to varicella (non-immune), currently 05/30/20182018 Overview: Address pp Surgery, elective 02/02/2017 05/29/2018 Ankle fracture, bimalleolar, closed, left, sequela 02/02/2017 10/09/2018 Overview: Added automatically from request for surgery [id number] Cellulitis 12/30/2016 05/29/2018 Infection 12/29/2016 05/29/2018 Bleeding disorder 11/27/2016 05/29/2018 Pain 11/25/2016 05/29/2018 Bleeding 10/19/2016 05/29/2018 Pain, dental 10/11/2016 05/29/2018 Overview: Added automatically from request for surgery [id number] Infection of bone of left ankle 09/09/2016 10/09/2018 Obesity in 09/08/2016 11/19/2018 Unspecified dental caries 08/08/2016 05/29/2018 Tooth pain 08/08/2016 05/29/2018 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 Routine Visit OB Satellites Rimma Duran, CARRIAGE DOGGER [address] [place] [address] [phone] Health Maintenance Due Date Last Done Comments PNEUMOCOCCAL 0-64 YEARS COMBINED SERIES (1 1990 of 1 - PPSV23) INFLUENZA VACCINE (#1) 2018 PAP SMEAR 05/29/2021 05/29/2018, 03/30/2004 DTaP,Tdap,and Td Vaccines (2 - Td) 10/15/2028 10/15/2018 documented as of this encounter Implants Implanted Type Area Mh Teacher Device Shelf Model / Identifier Expiration Date Serial / Lot Nail T2 Ankle Arthrodesis [id number] Left [place] F [employer] A #[id number] - S0 NAIL Left: [place] 09/14/2021 [id number] / Implanted: Qty: 1 on 03/03/2017 by Dewayne Felix MD at [facility] Ankle 0 / [id number] Pin, [place] Self[employer] [place] 5mm 150 X 25mm #[id number] PIN Left: [place] 08/15/2019 5017-8-150S / Implanted: Qty: 1 on 11/25/2016 by Dewayne Felix MD at [facility] Ankle 0000 / [id number] Hexapod Strut PIN Left: Tamanna 11/25/2026 4935-0-040 / Implanted: Qty: 2 on 11/25/2016 by Dewayne Felix MD at [facility] Ankle 0000 / 000 Pin, [place]anna Self[employer] [place] 5mm 150 X 25mm #[id number] PIN Left: [place] 07/15/2021 [id number] / Implanted: Qty: 1 on 11/25/2016 by Dewayne Felix MD at [facility] Ankle 0000 / [id number] Pin, [place] Self[employer] [place] 5mm 150 X 25mm #[id number] PIN Left: Tamanna 04/16/2021 [id number] / Implanted: Qty: 1 on 11/25/2016 by Dewayne Felix MD at [facility] Ankle 0000 / [id number] Pin, [place] Self[employer]illing [place] 5mm 150 X 25mm #[id number] PIN Left: Tamanna 04/16/2021 [id number] / Implanted: Qty: 1 on 11/25/2016 by Dewayne Felix MD at [facility] Ankle 0000 / [id number] Pin, [place] Self[employer]illing [place] 5mm 150 X 25mm #[id number] PIN Left: Tamanna 07/15/2021 [id number] / Implanted: Qty: 1 on 11/25/2016 by Dewayne Felix MD at [facility] Ankle 0000 / [id number] Wire [place] - Medium 1.5 To 2.0 Mm PIN Left: [place] 11/25/2026 4933-1- 002 / Implanted: Qty: 2 on 11/25/2016 by Dewayne Felix MD at [facility] Ankle 0000 / 0000 Wire [place] Adapter Short PIN Left: Tamanna 11/25/2026 4933-1-004 / Implanted: Qty: 2 on 11/25/2016 by Dewayne Felix MD at [facility] Ankle 0000 / 0000 [place] Pin Adaptor, Short 6mm # 4933-1-020 - S0000 PIN Left: [place] 2019 4933-1-020 / Implanted: Qty: 3 on 11/25/2016 by Dewayne Felix MD at [facility] Ankle 0000 / 0000 Hexapod Strut Medium PIN Left: [place] 4935-0-030 / Implanted: Qty: 6 on 11/25/2016 by Dewayne Felix MD at [facility] Ankle 0000 / 0000 Foot Arch RING Left: Tamanna 11/25/2026 4934-6-180 / Implanted: Qty: 1 on 11/25/2016 by Dewayne Felix MD at [facility] Ankle 0000 / 0000 Screw, [place] 5 X 30mm Fully Thrded Locking #[id number] - S0 SCREW Left: [place] 06/14/2021 [id number] / Implanted: Qty: 1 on 03/03/2017 by Dewayne Felix MD at [facility] Ankle 0 / [id number] Screw, Tamanna 5 X 50mm Fully Thrded Locking #1896-5050s - S0 SCREW Left: [place] 10/14/2020 [id number] / Implanted: Qty: 1 on 03/03/2017 by Dewayne Felix MD at [facility] Ankle 0 / [id number] Screw Headless Compression [id number] [place] #[id number] - S0 SCREW Left: Tamanna 03/03/2027 [id number] / Implanted: Qty: 1 on 03/03/2017 by Dewayne Felix MD at [facility] Ankle 0 / 0 K Wire [id number] WIRE Left: [place] 11/25/2026 5101-2-450 / Implanted: Qty: 2 on 11/25/2016 by Dewayne Felix MD at [facility] Ankle 0000 / 0000 Wire With [place] - Kathryn 2.0 X 450 Mm WIRE Left: Tamanna 11/25/2026 4933-8- 040 / Implanted: Qty: 2 on 11/25/2016 by Dewayne Felix MD at [facility] Ankle 0000 / 0000 [place] External Fixation 1.5mm-2mm Kathryn Short Carbon #4933-1-001 - S0000 Left: [place] 11/25/2026 4933-1-001 / Implanted: Qty: 4 on 11/25/2016 by Dewayne Felix MD at [facility] Ankle 0000 / 0000 [place] External Fixation Long Carbon 40mml Threaded #4933-1-021 - S0000 Left: [place] 11/25/2026 4933-1-021 / Implanted: Qty: 2 on [...] External Fixation 180mm #4934-4-180 - S0000 Left: [place] 2026 4934-4-180 / Implanted: Qty: 1 on 11/25/2016 by Dewayne Felix MD at [facility] Ankle 0000 / 0000 Nut External Fixation 6mm Kathryn Short #4933-1-010 - S0000 Left: [place] 4933-1-010 / Implanted: Qty: 25 on 11/25/2016 by Dewayne Felix MD at [facility] Ankle 0000 / 0000 [place] External Fixation 6mm Kathryn Carbon #4933-1-702 - S000 Left: [place] 11/25/2026 4933-1-702 / Implanted: Qty: 14 on 11/25/2016 by Dewayne Felix MD at [facility] Ankle 000 / 0000 Washer External Fixation 4mm Kathryn Yellow #4933-1-712 - S0000 Left: [place] 11/25/2026 4933-1-712 / Implanted: Qty: 1 on 11/25/2016 by Dewayne Felix MD at [facility] Ankle 0000 / 0000 Screw, Fixos Headless Compression [id number] [place] #[id number] - S0 Left: [place] 03/03/2027 [id number] / Implanted: Qty: 1 on 03/03/2017 by Dewayne Felix MD at [facility] Ankle 0 / 0 documented as of this encounter Results Not on filedocumented in this encounter Insurance Payer Benefit Plan / Subscriber ID Effective Dates Phone Address Type Group [employer] MEDICAID OF xxxxxxxxx 2018-Present [phone] [address] [place] [id number] [place] [phone] documented as of this encounter Advance Directives Name Relationship Healthcare Agent Communication Relationship Geovanny Boyd Mother Primary healthcare agent [email or web address]
--- OUTSIDE RECORDS SUMMARY | 2019-07-09 07:32 | XMS REPORT | Summary of Care ---
:1985 Author Organization [facility] - [facility] Address [address] [place] [address] Care Team Providers Name Role Phone Orthopedics, Tdc Unavailable Unavailable Max Velarde Primary Care Provider Reason for Visit Reason Comments Hypertension Auth/Cert Status Reason Specialty Diagnoses / Referred By Referred To Procedures Contact Contact Emergency Medicine [facility] [address] [place] [address] [place] [address] Encounter Details Date Type Department Care Team Description 12/28/2018 - Emergency ADC-Emergency Alla Alford Essential hypertension (Primary Dx); 12/29/2018 Department MD Amisha Pre-eclampsia in period; [address] [place] [address] [place] [address] Lower extremity edema; [place] [address] [id number] Hypomagnesemia [phone] [place] [address] Allergies Active Allergy Reactions Severity Noted Date Comments Aspirin Unknown - See comments 12/24/2009 Unable to take d/t clotting disorder. 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 Bishop (cell [phone]) - Notify Pharamacy for Nova7 to be [...] Overview: Notice of research participation in the [facility] Trial: IRB # [id number]. PI- Modesto De [...] concerns, you may page the PRD at [phone]. Anemia of mother in , antepartum 11/19/2018 [...] as of this encounter (statuses as of 12/29/2018) Resolved Problems Problem Noted Date Resolved Date Threatened 11/22/2018 11/22/2018 Anemia of mother in , antepartum 08/02/2018 10/09/2018 Nausea and vomiting during 06/26/2018 10/09/2018 Headache in 06/26/2018 10/09/2018 Susceptible to varicella (non-immune), currently 05/30/20182018 Overview: Address pp Surgery, elective 02/02/2017 05/29/2018 Ankle fracture, bimalleolar, closed, left, sequela 02/02/2017 10/09/2018 Overview: Added automatically from request for surgery [id number] Cellulitis 12/30/2016 05/29/2018 Infection 12/29/2016 05/29/2018 Bleeding disorder 11/27/2016 05/29/2018 Pain 11/25/2016 05/29/2018 Bleeding 10/19/2016 05/29/2018 Pain, dental 10/11/2016 05/29/2018 Overview: Added automatically from request for surgery [id number] Infection of bone of left ankle 09/09/2016 10/09/2018 Obesity in 09/08/2016 11/19/2018 Unspecified dental caries 08/08/2016 05/29/2018 Tooth pain 08/08/2016 05/29/2018 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 06/05/2016 11/03/2016 Anemia 05/21/2016 05/29/2018 documented as of this encounter (statuses as of 12/29/2018) Immunizations Name Administration Dates Next Due TDAP [...] Sign Reading Time Taken Comments Blood Pressure 133/77 12/29/2018 12:30 AM CDT Pulse 52 12/29/2018 12:30 AM CDT Temperature 37.2 C (98.9 F) 12/28/2018 7:43 PM CDT Respiratory Rate 15 12/29/2018 12:30 AM CDT Oxygen Saturation 98% 12/29/2018 12:30 AM CDT Inhaled Oxygen Concentration - - Weight 108.9 kg (240 lb) 12/28/2018 7:43 PM CDT Height 167.6 cm (5' 6") 12/28/2018 7:43 PM CDT Body Mass Index 38.74 12/28/2018 7:43 PM CDT documented in this encounter Discharge Instructions Alla Cabrales MD - 12/29/2018 DIAGNOSIS Diagnoses that have been ruled out: None Diagnoses that are still under consideration: None Final diagnoses: Essential hypertension Pre-eclampsia in period Lower extremity edema NO LIFE-THREATENING FINDINGS ON TODAY'S EXAM. PROCEDURES IN THE ER TODAY: Orders Placed This Encounter Procedures CBC WITH DIFF COMP. METABOLIC PANEL ([id number]) URINALYSIS LIPASE CBC WITH DIFFERENTIAL N-TERMINAL PRO-BNP MAGNESIUM PROTHROMBIN TIME / INR MEDICATIONS ADMINISTERED IN THE ER TODAY AND DISCHARGE MEDICATIONS: Orders Placed This Encounter Medications morpHINE injection 4 mg ondansetron (ZOFRAN (PF)) injection 4 mg furosemide (LASIX) injection 40 mg DISCONTD: magnesium oxide (MAG-OX 400) tablet 800 mg magnesium sulfate 4 mEq/mL (50 %) injection 32 mEq FOLLOW-UP RECOMMENDATIONS: RECOMMEND FOLLOW-UP WITH PHARMACY DISTRICT MANAGER ON Monday ALREADY SCHEDULED KEEP A BLOOD PRESSURE LOG DISCUSSED TAKE HYDRALAZINE IF SYSTOLIC BLOOD PRESSURE IS GREATER THAN 140 OR DIALTOLIC BLOOD PRESSURE IS GREATER THAN 90 AttachmentsThe following attachments cannot be sent through Care Everywhere.Diuretic, Taking a (Mozambican)Preeclampsia, Understanding (Mozambican) documented in this encounter Plan of Treatment Date Type Specialty Care Team Description 01/11/2019 Routine Visit OB Satellites Rimma Duran, ARTS ADMINISTRATOR OR MANAGER [address] [place] [address] [phone] Health Maintenance Due Date Last Done Comments PNEUMOCOCCAL 0-64 YEARS COMBINED SERIES (1 1990 of 1 - PPSV23) INFLUENZA VACCINE (#1) 2018 PAP SMEAR 05/29/2021 05/29/2018, 03/30/2004 DTaP,Tdap,and Td Vaccines (2 - Td) 10/15/2028 10/15/2018 documented as of this encounter Implants Implanted Type Area Hose Coupling Joiner Device Shelf Model / Identifier Expiration Date Serial / Lot Nail T2 Ankle Arthrodesis [id number] Left Madison F & A #[id number] - S0 NAIL Left: Tmaanna 09/14/2021 [id number] / Implanted: Qty: 1 on 03/03/2017 by Dewayne Felix MD at [facility] Ankle 0 / [id number] Pin, Tamanna Self-Drilling Half [place] 5mm 150 X 25mm #[id number] PIN Left: Tamanna 08/15/2019 [id number] / Implanted: Qty: 1 on 11/25/2016 by Dewayne Felix MD at [facility] Ankle 0000 / [id number] Hexapod Strut PIN Left: Madison 11/25/2026 4935-0-040 / Implanted: Qty: 2 on 11/25/2016 by Dewayne Felix MD at [facility] Ankle 0000 / 000 Pin, Madison Self-Drilling [place] 5mm 150 X 25mm #[id number] PIN Left: Tamanna 07/15/2021 [id number] / Implanted: Qty: 1 on 11/25/2016 by Dewayne Felix MD at [facility] Ankle 0000 / [id number] Pin, Madison Self-Drilling [place] 5mm 150 X 25mm #[id number] PIN Left: Tamanna 04/16/2021 [id number] / Implanted: Qty: 1 on 11/25/2016 by Dewayne Felix MD at [facility] Ankle 0000 / [id number] Pin, Tamanna Self-Drilling [place] 5mm 150 X 25mm #[id number] PIN Left: Tamanna 04/16/2021 [id number] / Implanted: Qty: 1 on 11/25/2016 by Dewayne Felix MD at [facility] Ankle 0000 / [id number] Pin, Tamanna Self-Drilling [place] 5mm 150 X 25mm #[id number] PIN Left: Madison 07/15/2021 [id number] / Implanted: Qty: 1 on 11/25/2016 by Dewayne Felix MD at [facility] Ankle 0000 / [id number] Wire Vera - Medium 1.5 To 2.0 Mm PIN Left: Tamanna 11/25/2026 4933-1- 002 / Implanted: Qty: 2 on 11/25/2016 by Dewayne Felix MD at [facility] Ankle 0000 / 0000 Wire Vera Adapter Short PIN Left: Madison 11/25/2026 4933-1-004 / Implanted: Qty: 2 on 11/25/2016 by Dewayne Felix MD at [facility] Ankle 0000 / 0000 [place] Pin Adaptor, Short 6mm # 4933-1-020 - S0000 PIN Left: Tamanna 2019 4933-1-020 / Implanted: Qty: 3 on 11/25/2016 by Dewayne Felix MD at [facility] Ankle 0000 / 0000 Hexapod Strut Medium PIN Left: Tamanna 4935-0-030 / Implanted: Qty: 6 on 11/25/2016 by Dewayne Felix MD at [facility] Ankle 0000 / 0000 Foot Arch RING Left: Tamanna 11/25/2026 4934-6-180 / Implanted: Qty: 1 on 11/25/2016 by Dewayne Felix MD at [facility] Ankle 0000 / 0000 Screw, Madison 5 X 30mm Fully Thrded Locking #[id number] - S0 SCREW Left: Tamanna 06/14/2021 [id number] / Implanted: Qty: 1 on 03/03/2017 by Dewayne Felix MD at [facility] Ankle 0 / [id number] Screw, Tamanna 5 X 50mm Fully Thrded Locking #1896-5050s - S0 SCREW Left: Tamanna 10/14/2020 [id number] / Implanted: Qty: 1 on 03/03/2017 by Dewayne Felix MD at [facility] Ankle 0 / [id number] Screw Headless Compression [id number] Madison #[id number] - S0 SCREW Left: Madison 03/03/2027 [id number] / Implanted: Qty: 1 on 03/03/2017 by Dewayne Felix MD at [facility] Ankle 0 / 0 K Wire [id number] WIRE Left: Madison 11/25/2026 [id number] / Implanted: Qty: 2 on 11/25/2016 by Dewayne Felix MD at [facility] Ankle 0000 / 0000 Wire With Equinunk - Kathryn 2.0 X 450 Mm WIRE Left: Madison 11/25/2026 4933-8- 040 / Implanted: Qty: 2 on 11/25/2016 by Dewayne Felix MD at [facility] Ankle 0000 / 0000 Vera External Fixation 1.5mm-2mm Kathryn Short Carbon #4933-1-001 - S0000 Left: Tamanna 11/25/2026 4933-1-001 / Implanted: Qty: 4 on 11/25/2016 by Dewayne Felix MD at [facility] Ankle 0000 / 0000 Vera External Fixation Long Carbon 40mml Threaded #4933-1-021 - S0000 Left: Tamanna 11/25/2026 4933-1-021 / Implanted: Qty: 2 on 11/25/2016 by Dewayne Felix MD at [facility] Ankle 0000 / 0000 Set Ring External Fixation Full 180mm Id Carbon Holex5 F/Foot & Ankle Fixation #4933-5-180 - S0000 Left: Tamanna 11/25/2026 4933-5-180 / Implanted: Qty: 3 on 11/25/2016 by Dewayne Felix MD at [facility] Ankle 0000 / 0000 Ring External Fixation 180mm #4934-4-180 - S0000 Left: Tamanna 2026 4934-4-180 / Implanted: Qty: 1 on 11/25/2016 by Dewayne Felix MD at [facility] Ankle 0000 / 0000 Nut External Fixation 6mm Kathryn Short #4933-1-010 - S0000 Left: Madison 4933-1-010 / Implanted: Qty: 25 on 11/25/2016 by Dewayne Felix MD at [facility] Ankle 0000 / 0000 Vera External Fixation 6mm Kathryn Carbon #4933-1-702 - S000 Left: Madison 11/25/2026 4933-1-702 / Implanted: Qty: 14 on 11/25/2016 by Dewayne Felix MD at [facility] Ankle 000 / 0000 Washer External Fixation 4mm Ktahryn Yellow #4933-1-712 - S0000 Left: Madison 11/25/2026 4933-1-712 / Implanted: Qty: 1 on 11/25/2016 by Dewayne Felix MD at [facility] Ankle 0000 / 0000 Screw, Fixos Headless Compression [id number] Madison #[id number] - S0 Left: Madison 03/03/2027 [id number] / Implanted: Qty: 1 on 03/03/2017 by Dewayne Felix MD at [facility] Ankle 0 / 0 documented as of this encounter Procedures Procedure Name Priority Date/Time Associated Diagnosis Comments URINALYSIS STAT 12/28/2018 8:39 Essential Results for this PM CDT hypertension procedure are in the results section. CBC WITH DIFFERENTIAL STAT 12/28/2018 8:37 Essential Results for this PM CDT hypertension procedure are in the results section. N-TERMINAL PRO-BNP STAT 12/28/2018 8:37 Essential Results for this PM CDT hypertension procedure are in the results section. PROTHROMBIN TIME / STAT 12/28/2018 8:37 Essential Results for this INR PM CDT hypertension procedure are in the results section. CBC WITH DIFF STAT 12/28/2018 8:37 Essential Results for this PM CDT hypertension procedure are in the results section. COMP. METABOLIC PANEL STAT 12/28/2018 8:37 Essential Results for this (39563) PM CDT hypertension procedure are in the results section. MAGNESIUM STAT 12/28/2018 8:37 Essential Results for this PM CDT hypertension procedure are in the results section. LIPASE STAT 12/28/2018 8:37 Essential Results for this PM CDT hypertension procedure are in the results section. NOTICE OF PRIVACY Routine 12/28/2018 7:16 PRACTICES PM CDT CONSENT/REFUSAL FOR Routine 12/28/2018 7:16 DIAGNOSIS AND PM CDT TREATMENT documented in this encounter Results URINALYSIS (12/28/2018 8:39 PM CDT) APPEARANCE Cloudy (A) Clear [facility] COLOR Laura (A) Yellow [facility] PH 6.0 4.8 - 8.0 [facility] SP GRAVITY 1.027 1.003 - 1.030 [facility] GLU U QUAL Normal Normal [facility] BLOOD 3+ (A) Negative [facility] KETONES Negative Negative [facility] PROTEIN 100 mg/dL (A) Negative [facility] UROBILIN 4.0 mg/dL (A) Normal [facility] BILIRUBIN Negative Negative [facility] NITRITE Negative Negative [facility] LEUK MISBAH 75/uL (A) Negative [facility] RBC/HPF 62 (H) 0 - 3 HPF [facility] WBC/HPF 43 (H) 0 - 5 HPF [facility] BACTERIA Moderate (A) Negative [facility] MUCOUS Marked (A) Negative LPF [facility] SQ EPITH 21 HPF [facility] YEAST BUD 3 (H) <=1 HPF [facility] ROSSI EPITH 1 <=1 HPF [facility] Specimen Urine - URINE, CLEAN CATCH Performing Organization Address [facility] Phone Number [facility] CLIA: [id number], [address] [place] [address] PROTHROMBIN TIME / INR (12/28/2018 8:37 PM CDT) PROTIME PATIENT 14.0 12.0 - 14.7 [facility] LABORATORY INR 1.1Comment: Normal [facility] INR <1.1; Warfarin [facility] Therapeutic range LABORATORY 2.0 to 3.0 or 2.5 to 3.5, depending upon the indications. Specimen Blood - ARM, RIGHT Performing Organization Address [facility] Phone Number [facility] CLIA: [id number], [address] [place], [place] [address] [address] MAGNESIUM (12/28/2018 8:37 PM CDT) MAGNESIUM 1.5 (L) 1.7 - 2.4 mg/dL [facility] Specimen Blood - ARM, RIGHT Performing Organization Address [facility] Phone Number [facility] CLIA: [id number], [address] [place] [address] N-TERMINAL PRO-BNP (12/28/2018 8:37 PM CDT) NT-proBNP 423 (H) <=125 pg/mL [facility] Specimen Blood - ARM, RIGHT Narrative Performed At [facility] has been reported to cause a negative [facility] bias, interpret results relative to patient's use of biotin. Performing Organization Address City/State/Zipcode Phone Number [facility] CLIA: [id number], [address] [place] [address] CBC WITH DIFFERENTIAL (12/28/2018 8:37 PM CDT) WBC 7.73 4.30 - 11.10 [facility] 10*3/L [facility] RBC 3.04 (L) 3.93 - 5.25 [facility] 10*6/L [facility] HGB 8.9 (L) 11.6 - 15.0 [facility] g/dL [facility] HCT 28.8 (L) 35.7 - 45.2 % [facility] MCV 94.7 80.6 - 95.5 fL [facility] MCH 29.3 25.9 - 32.8 pg [facility] MCHC 30.9 (L) 31.6 - 35.1 [facility] g/dL [facility] RDW-SD 52.4 (H) 39.0 - 49.9 fL [facility] RDW-CV 15.3 12.0 - 15.5 % [facility] PLT 159 (L) 166 - 358 [facility] 10*3/L [facility] MPV 11.3 9.5 - 12.9 fL [facility] NRBC/100 WBC 0.3 0.0 - 10.0 /100 [facility] WBCs [facility] NRBC x10^3 0.02 10*3/L [facility] GRAN MAT (NEUT) % 70.5 % [facility] IMM GRAN % 0.80 % [facility] LYMPH % 16.6 % [facility] MONO % 6.0 % [facility] EOS % 5.8 % [facility] BASO % 0.3 % [facility] GRAN MAT x10^3(ANC) 5.46 1.88 - 7.09 [facility] 10*3/uL HOSPITAL LABORATORY IMM GRAN x10^3 0.06 0.00 - 0.06 [facility] 10*3/uL HOSPITAL LAB[facility]ORY LYMPH x10^3 1.28 (L) 1.32 - 3.29 [facility] 10*3/uL [facility] MONO x10^3 0.46 0.33 - 0.92 [facility] 10*3/uL [facility] EOS x10^3 0.45 (H) 0.03 - 0.39 [facility] 10*3/uL [facility] BASO x10^3 <0.03 0.01 - 0.07 [facility] 10*3/uL [facility] Specimen Blood - ARM, RIGHT Performing Organization Address [facility] Phone Number [facility] CLIA: [id number], [address] [place] [address] LIPASE (12/28/2018 8:37 PM CDT) LIPASE 89 0 - 220 U/L [facility] Specimen Blood - ARM, RIGHT Performing Organization Address City/[facility] Phone Number [facility] CLIA: [id number], [address] [place] [address] COMP. METABOLIC PANEL ([id number]) (12/28/2018 8:37 PM CDT) NA 141 135 - 145 [facility] mmol/L [facility] K 3.8 3.5 - 5.0 [facility] mmol/L [facility] CL 110 (H) 98 - 108 mmol/L [facility] CO2 TOTAL 23 23 - 31 mmol/L [facility] AGAP 8 2 - 16 [facility] BUN 12 7 - 23 mg/dL [facility] GLUCOSE 103 70 - 110 mg/dL [facility] CREATININE 0.50 0.50 - 1.04 [facility] mg/dL [facility] TOTAL BILI 0.6 0.1 - 1.1 mg/dL [facility] CALCIUM 8.9 8.6 - 10.6 [facility] mg/dL [facility] T PROTEIN 6.8 6.3 - 8.2 g/dL [facility] ALBUMIN 3.5 3.5 - 5.0 g/dL [facility] ALK PHOS 86 34 - 122 U/L [facility] ALT(SGPT) 19 9 - 51 U/L [facility] AST(SGOT) 29 13 - 40 U/L [facility] eGFR Calculation 141.2 mL/min/1.73m2 [facility] ([facility] LABORATORY Macedonian) eGFR Calculation 171.2 mL/min/1.73m2 [facility] () [facility] Specimen Blood - ARM, RIGHT Narrative Performed At Association of Glomerular Filtration Rate (GFR) [facility] and Staging of Kidney Disease* + + +- + | GFR (mL/min/1.73 m2)| With Kidney Damage|Without Kidney Damage + + +- + |>90| Stage one| Normal + + +- + |60-89|S tage two| Decreased GFR + + +- + |30-59|S tage three| Stage three + + +- + |15-29|S tage four | Stage four + + +- + |<15 (or dialysis)|Stage five | Stage five + + +- + *Each stage assumes the associated GFR level has been in effect for at least three months.Stages 1 to 5, with or without kidney disease, indicate chronic kidney disease. Notes: Determination of stages one and two (with eGFR >59mL/min/1.73 m2) requires estimation of kidney damage for at least three months as defined by structural or functional abnormalities of the kidney, manifested by either: Pathological abnormalities or Markers of kidney damage (including abnormalities in the composition of the blood or urine or abnormalities in imaging tests). Performing Organization Address City/State/Zipcode Phone Number [facility] CLIA: [id number], [address] [place] [address] [facility] [address] documented in this encounter Visit Diagnoses Diagnosis Essential hypertension - Primary Unspecified essential hypertension Pre-eclampsia in period Lower extremity edema Edema Hypomagnesemia Disorders of magnesium metabolism documented in this encounter Administered Medications Medication Order MAR Action Action Date Dose Rate Site furosemide (LASIX) injection 40 mg Given 12/28/2018 11:41 PM CDT 40 mg 40 mg, IV Push, ONCE, 1 dose, 12/28/18 at 2345, SUSI magnesium sulfate 4 mEq/mL (50 %) injection Given 12/28/2018 11:48 PM CDT 32 mEq 32 mEq 32 mEq (4 g), IV Piggyback, ONCE, 1 dose, 12/29/18 at 0015, STAT morpHINE injection 4 mg Given 12/28/2018 9:09 PM CDT 4 mg 4 mg, Slow IV Push, ONCE, 1 dose, Mon12/28/18 at 2130, STAT ondansetron (ZOFRAN (PF)) injection 4 mg Given 12/28/2018 9:09 PM CDT 4 mg 4 mg, Slow IV Push, ONCE, 1 dose, Mon12/28/18 at 2130, SUSI documented in this encounter Insurance Payer Benefit Plan / Subscriber ID Effective Dates Phone Address Type Group [employer] MEDICAID OF xxxxxxxxx 2018-Present [phone] [address] [place] [id number] [place] [phone] documented as of this encounter Advance Directives Name Relationship Healthcare Agent Communication Relationship Geovanny Boyd Mother Primary healthcare agent [phone] (Mobile) [email or web address]
--- OUTSIDE RECORDS SUMMARY | 2019-07-09 07:33 | XMS REPORT | Summary of Care ---
:1985 Author Organization [facility] Address [address] [place] [address] Care Team Providers Name Role Phone Orthopedics, Tdc Unavailable Unavailable Max Velarde Primary Care Provider Reason for Visit Reason Comments NURSE VISIT Wound Is Bleeding Encounter Details Date Type Department Care Team Description 12/31/2018 Nurse Visit [facility] [address] [place] [address] High risk , [place] Visit, [facility] Nurse antepartum [address] [place] [address] Allergies Active Allergy Reactions Severity [...] on 12/24/18 - Notify Dr. Bishop (cell [phone]) - Notify Pharamacy for Nova7 to be [...] Overview: Notice of research participation in the [facility] Trial: IRB # [id number]. PI- [place] De [...] concerns, you may page the PRD at [phone]. Anemia of mother in , antepartum 11/19/2018 [...] Overview: Added automatically from request for surgery [id number] Cellulitis 12/30/2016 05/29/2018 Infection 12/29/2016 05/29/2018 Bleeding disorder 11/27/2016 05/29/2018 Pain 11/25/2016 05/29/2018 Bleeding 10/19/2016 05/29/2018 Pain, dental 10/11/2016 05/29/2018 Overview: Added automatically from request for surgery [id number] Infection of bone of left ankle 09/09/2016 [...] Sign Reading Time Taken Comments Blood Pressure 162/90 12/31/2018 3:26 PM CDT Pulse 67 12/31/2018 3:21 PM CDT Temperature 37.1 C (98.7 F) 12/31/2018 3:21 PM CDT Respiratory Rate 16 12/31/2018 3:21 PM CDT Oxygen Saturation - - Inhaled Oxygen Concentration - - Weight 102.1 kg (225 lb 2 oz) 12/31/2018 3:21 PM CDT Height 167.6 cm (5' 6") 12/31/2018 3:21 PM CDT Body Mass Index 36.34 12/31/2018 3:21 PM CDT documented in this encounter Progress Notes Stephen Patel, MCKENZIE - 12/31/2018 2:15 PM CDTPatient present in clinic for staple removal. Delivered 12/21/2018 via Pt voiding and stooling without difficulties, not constipated . Pt eating well and drinking water daily. She is Bottle Feeding) care no concerns voiced has help at home. She denies depression/suicidal/homocial ideation, Denies any domestic violence. LT incision well approximated and intact with exception of small superficial opening on left side ofincision. No ss of infection. Skin cleansed via aseptic technique, complete latricia removed, and steri strips applied. [facility] faculty evaluated wound and advised was okay. C/S inc care reviewed and warning S/S given ER warnings discussed, she voiced understanding and agrees with plan. Patient with BP of 146/85, negative protein in urine. Patient positive for lower extremity swelling,headaches, and floaters. BP recheck 162/90. Patient states she was seen in ER in [place] and given hydralazine and lasix PO. Last dose this AM. [facility] faculty notified. Per provider send patient to [place] labor [facility] delivery for evaluation. Strict er warnings given. Stressed and educated patient ofrisk of pre eclampsia and importance of following up in [place] l&d. Patient verbalized understanding and states that she will go to [place] for evaluation. STEPHEN PATEL RN 12/31/2018 3:55 PM documented in this encounter Plan of Treatment Date Type Specialty Care Team Description 01/11/2019 Routine Visit OB Satellites Rimma Duran, GRANTS ASSISTANT [address] [address] [phone] Health Maintenance Due Date Last Done Comments PNEUMOCOCCAL 0-64 YEARS COMBINED SERIES (1 1990 of 1 - PPSV23) INFLUENZA VACCINE (#1) 2018 PAP SMEAR 05/29/2021 05/29/2018, 03/30/2004 DTaP,Tdap,and Td Vaccines (2 - Td) 10/15/2028 10/15/2018 documented as of this encounter Implants Implanted Type Area Work Counselor Device Shelf Model / Identifier Expiration Date Serial / Lot Nail T2 Ankle Arthrodesis [id number] Left [place] F & A #[id number] - S0 NAIL Left: [place] 09/14/2021 [id number] / Implanted: Qty: 1 on 03/03/2017 by Dewayne Felix MD at [facility] Ankle 0 / [id number] Pin, [place] Self-Drilling Half [place] 5mm 150 X 25mm #5017-8-150s PIN Left: Tamanna 08/15/2019 5017-8-150S / Implanted: Qty: 1 on 11/25/2016 by Dewayne Felix MD at [facility] Ankle 0000 / [id number] Hexapod Strut PIN Left: [place] 11/25/2026 4935-0-040 / Implanted: Qty: 2 on 11/25/2016 by Dewayne Felix MD at [facility] Ankle 0000 / 000 Pin, [place] Self-Drilling Half [place] 5mm 150 X 25mm #5017-8-150s PIN Left: Tamanna 07/15/2021 5017-8-150S / Implanted: Qty: 1 on 11/25/2016 by Dewayne Felix MD at [facility] Ankle 0000 / [id number] Pin, [place] Self-Drilling Half [place] 5mm 150 X 25mm #5017-8-150s PIN Left: [place] 04/16/2021 5017-8-150S / Implanted: Qty: 1 on 11/25/2016 by Dewayne Felix MD at [facility] Ankle 0000 / [id number] Pin, [place] Self-Drilling Half [place] 5mm 150 X 25mm #5017-8-150s PIN Left: Tamanna 04/16/2021 5017-8-150S / Implanted: Qty: 1 on 11/25/2016 by Dewayne Felix MD at [facility] Ankle 0000 / [id number] Pin, [place] Self-Drilling Half [place] 5mm 150 X 25mm #5017-8-150s PIN Left: Tamanna 07/15/2021 5017-8-150S / Implanted: Qty: 1 on 11/25/2016 by Dewayne Felix MD at [facility] Ankle 0000 / [id number] Wire [place] - Medium 1.5 To 2.0 Mm PIN Left: [place] 11/25/2026 4933-1- 002 / Implanted: Qty: 2 on 11/25/2016 by Dewayne Felix MD at [facility] Ankle 0000 / 0000 Wire [place] Adapter Short PIN Left: [place] 11/25/2026 4933-1-004 / Implanted: Qty: 2 on 11/25/2016 by Dewayne Felix MD at [facility] Ankle 0000 / 0000 [place] Pin Adaptor, Short 6mm # 4933-1-020 - S0000 PIN Left: [place] 2019 4933-1-020 / Implanted: Qty: 3 on 11/25/2016 by Dewayne Felix MD at [facility] Ankle 0000 / 0000 Hexapod Strut Medium PIN Left: Tamanna 4935-0-030 / Implanted: Qty: 6 on 11/25/2016 by Dewayne Felix MD at [facility] Ankle 0000 / 0000 Foot Arch RING Left: [place]anna 11/25/2026 4934-6-180 / Implanted: Qty: 1 on 11/25/2016 by Dewayne Felix MD at [facility] Ankle 0000 / 0000 Screw, [place] 5 X 30mm Fully Thrded Locking #1896-5030s - S0 SCREW Left: [place] 06/14/2021 1896-5030S / Implanted: Qty: 1 on 03/03/2017 by Dewayne Felix MD at [facility] Ankle 0 / [id number] Screw, [place] 5 X 50mm Fully Thrded Locking #1896-5050s - S0 SCREW Left: [place] 10/14/2020 1896-5050S / Implanted: Qty: 1 on 03/03/2017 by Dewayne Felix MD at [facility] Ankle 0 / [id number] Screw Headless Compression [id number] [place] #[id number] - S0 SCREW Left: [place] 03/03/2027 [id number] / Implanted: Qty: 1 on 03/03/2017 by Dewayne Felix MD at [facility] Ankle 0 / 0 K Wire [id number] WIRE Left: [place] 11/25/2026 5101-2-450 / Implanted: Qty: 2 on 11/25/2016 by Dewayne Felix MD at [facility] Ankle 0000 / 0000 Wire With [place] - Kathryn 2.0 X 450 Mm WIRE Left: Tamanna 11/25/2026 4933-8- 040 / Implanted: Qty: 2 on 11/25/2016 by Dewayne Felix MD at [facility] Ankle 0000 / 0000 [place] External Fixation 1.5mm-2mm Kathryn Short Carbon #4933-1-001 - S0000 Left: [place] 11/25/2026 4933-1-001 / Implanted: Qty: 4 on 11/25/2016 by Dewayne Felix MD at [facility] Ankle 0000 / 0000 [place] External Fixation Long Carbon 40mml Threaded #4933-1-021 - S0000 Left: Tamanna 11/25/2026 4933-1-021 / Implanted: Qty: 2 on 11/25/2016 by Dewayne Felix MD at [facility] Ankle 0000 / 0000 Set Ring External Fixation Full 180mm Id [place] Holex5 F/Foot & Ankle Fixation #4933-5-180 - S0000 Left: [place]anna 11/25/2026 4933-5-180 / Implanted: Qty: 3 on 11/25/2016 by Dewayne Felix MD at [facility] Ankle 0000 / 0000 Ring External Fixation 180mm #4934-4-180 - S0000 Left: Tamanna 2026 4934-4-180 / Implanted: Qty: 1 on 11/25/2016 by Dewayne Felix MD at [facility] Ankle 0000 / 0000 Nut External Fixation 6mm Kathryn Short #4933-1-010 - S0000 Left: Tamanna 4933-1-010 / Implanted: Qty: 25 on 11/25/2016 by Dewayne Felix MD at [facility] Ankle 0000 / 0000 [place] External Fixation 6mm Kathryn Carbon #4933-1-702 - S000 Left: [place] 11/25/2026 4933-1-702 / Implanted: Qty: 14 on 11/25/2016 by Dewayne Felix MD at [facility] Ankle 000 / 0000 Washer External Fixation 4mm Kathryn Yellow #4933-1-712 - S0000 Left: Tamanna 11/25/2026 4933-1-712 / Implanted: Qty: 1 on 11/25/2016 by Dewayne Felix MD at [facility] Ankle 0000 / 0000 Screw, Fixos Headless Compression [id number] [place] #[id number] - S0 Left: [place] 03/03/2027 [id number] / Implanted: Qty: 1 on 03/03/2017 by Dewayne Felix MD at [facility] Ankle 0 / 0 documented as of this encounter Procedures Procedure Name Priority Date/Time Associated Diagnosis Comments POCT URINALYSIS Routine 12/31/2018 3:24 PM High risk , Results for this CDT antepartum procedure are in the results section. documented in this encounter Results POCT URINALYSIS W SPECIFIC GRAVITY (12/31/2018 3:24 PM CDT) POCT U SP GRAV . 1.005 - 1.025 mg/dl POCT PH U . 5 - 8 mg/dl POCT U LEUK EST . Negative - Negative POCT U NIT . Negative - Negative POCT U PROT Neg Negative - Negative POCT U GLU Neg Negative - Negative POCT U KETONE . [...] Type Group [facility] MEDICAID OF xxxxxxxxx 2018-Present [phone] [address] Medicaid [place] [address] [place] [address] documented as of this encounter Advance Directives Name Relationship Healthcare Agent Communication Relationship Geovanny Lion Boyd Mother Primary healthcare agent [phone] ([email or web address]) [email or web address]
--- OUTSIDE RECORDS SUMMARY | 2019-07-09 07:33 | XMS REPORT | Summary of Care ---
:1985 Author Organization [facility] Address [address] [place] [address] Care Team Providers Name Role Phone Orthopedics, Tdc Unavailable Unavailable Max Velarde Primary Care Provider Reason for Visit Reason Comments Follow-up Encounter Details Date Type Department Care Team Description 12/31/2018 Telephone [facility], Follow-up Clinics [address] [address] [place] [phone] Allergies Active Allergy Reactions Severity Noted Date [...] on 12/24/18 - Notify Dr. Bishop (cell [phone]) - Notify Pharamacy for Nova7 to be [...] Overview: Notice of research participation in the [facility] Trial: IRB # [id number]. PI- [place] [...] concerns, you may page the PRD at [phone]. Anemia of mother in , antepartum 11/19/2018 [...] Overview: Added automatically from request for surgery [id number] Cellulitis 12/30/2016 05/29/2018 Infection 12/29/2016 05/29/2018 Bleeding disorder 11/27/2016 05/29/2018 Pain 11/25/2016 05/29/2018 Bleeding 10/19/2016 05/29/2018 Pain, dental 10/11/2016 05/29/2018 Overview: Added automatically from request for surgery [id number] Infection of bone of left ankle 09/09/2016 [...] 01/11/2019 Routine Visit OB Satellites Rimma Duran, MOTOR CARRIER INSPECTOR [address] [place] [address] [phone] Health Maintenance Due Date Last Done Comments PNEUMOCOCCAL 0-64 YEARS COMBINED SERIES (1 1990 of 1 - PPSV23) INFLUENZA VACCINE (#1) 2018 PAP SMEAR 05/29/2021 05/29/2018, 03/30/2004 DTaP,Tdap,and Td Vaccines (2 - Td) 10/15/2028 10/15/2018 documented as of this encounter Implants Implanted Type Area Helper Electrical Device Shelf Model / Identifier Expiration Date Serial / Lot Nail T2 Ankle Arthrodesis [id number] Left [place] F & A #[id number] - S0 NAIL Left: [place]anna 09/14/2021 1818-1120S / Implanted: Qty: 1 on 03/03/2017 by Dewayne Felix MD at [facility] Ankle 0 / [id number] Pin, [place] Self-Drilling Half [place] 5mm 150 X 25mm #5017-8-150s PIN Left: [place] 08/15/2019 5017-8-150S / Implanted: Qty: 1 on 11/25/2016 by Dewayne Felix MD at [facility] Ankle 0000 / [id number] Hexapod Strut PIN Left: [place] 11/25/2026 4935-0-040 / Implanted: Qty: 2 on 11/25/2016 by Dewayne Felix MD at [facility] Ankle 0000 / 000 Pin, [place] Self-Drilling [place] 5mm 150 X 25mm #5017-8-150s PIN Left: [place] 07/15/2021 5017-8-150S / Implanted: Qty: 1 on 11/25/2016 by Dewayne Felix MD at [facility] Ankle 0000 / [id number] Pin, [place] Self-Drilling [place] 5mm 150 X 25mm #5017-8-150s PIN Left: [place]anna 04/16/2021 5017-8-150S / Implanted: Qty: 1 on 11/25/2016 by Dewayne Felix MD at [facility] Ankle 0000 / [id number] Pin, [place] Self-Drilling Half [place] 5mm 150 X 25mm #5017-8-150s PIN Left: [place] 04/16/2021 5017-8-150S / Implanted: Qty: 1 on 11/25/2016 by Dewayne Felix MD at [facility] Ankle 0000 / [id number] Pin, [place] Self-Drilling Half [place] 5mm 150 X 25mm #5017-8-150s PIN Left: [place] 07/15/2021 5017-8-150S / Implanted: Qty: 1 on 11/25/2016 by Dewayne Felix MD at [facility] Ankle 0000 / [id number] Wire [place] - Medium 1.5 To 2.0 Mm PIN Left: Tamanna 11/25/2026 4933-1- 002 / Implanted: Qty: 2 on 11/25/2016 by Dewayne Felix MD at [facility] Ankle 0000 / 0000 Wire [place] Adapter Short PIN Left: [place] 11/25/2026 4933-1-004 / Implanted: Qty: 2 on 11/25/2016 by Dewayne Felix MD at [facility] Ankle 0000 / 0000 Rose Pin Adaptor, Short 6mm # 4933-1-020 - S0000 PIN Left: Tamanna 2019 4933-1-020 / Implanted: Qty: 3 on 11/25/2016 by Dewayne Felix MD at [facility] Ankle 0000 / 0000 Hexapod Strut Medium PIN Left: [place] 4935-0-030 / Implanted: Qty: 6 on 11/25/2016 by Dewayne Felix MD at [facility] Ankle 0000 / 0000 Foot Arch RING Left: [place] 11/25/2026 4934-6-180 / Implanted: Qty: 1 on 11/25/2016 by Dewayne Felix MD at [facility] Ankle 0000 / 0000 Screw, [place] 5 X 30mm Fully Thrded Locking #1896-5030s - S0 SCREW Left: [place] 06/14/2021 1896-5030S / Implanted: Qty: 1 on 03/03/2017 by Dewayne Felix MD at [facility] Ankle 0 / [id number] Screw, [place] 5 X 50mm Fully Thrded Locking #1896-5050s - S0 SCREW Left: [place] 10/14/2020 1896-5050S / Implanted: Qty: 1 on 03/03/2017 by Dewayne Felix MD at [facility] Ankle 0 / [id number] Screw Headless Compression [id number] [place] #809651 - S0 SCREW Left: [place]anna 03/03/2027 [id number] / Implanted: Qty: 1 on 03/03/2017 by Dewayne Felix MD at [facility] Ankle 0 / 0 K Wire [id number] WIRE Left: [place] 11/25/2026 5101-2-450 / Implanted: Qty: 2 on 11/25/2016 by Dewayne Felix MD at [facility] Ankle 0000 / 0000 Wire With [place] - Kathryn 2.0 X 450 Mm WIRE Left: [place]anna 11/25/2026 4933-8- 040 / Implanted: Qty: 2 on 11/25/2016 by Dewayne Felix MD at [facility] Ankle 0000 / 0000 [place] External Fixation 1.5mm-2mm Kathryn Short Carbon #4933-1-001 - S0000 Left: Tamanna 11/25/2026 4933-1-001 / Implanted: Qty: 4 on 11/25/2016 by Dewayne Felix MD at [facility] Ankle 0000 / 0000 [place] External Fixation Long Carbon 40mml Threaded #4933-1-021 - S0000 Left: Tamanna 11/25/2026 4933-1-021 / Implanted: Qty: 2 on 11/25/2016 by Dewayne Felix MD at [facility] Ankle 0000 / 0000 Set Ring External Fixation Full 180mm Id [place] Holex5 F/Foot & Ankle Fixation #4933-5-180 - S0000 Left: [place]anna 11/25/2026 4933-5-180 / Implanted: Qty: 3 on 11/25/2016 by Dewayne Felix MD at [facility] Ankle 0000 / 0000 Ring External Fixation 180mm #4934-4-180 - S0000 Left: Tamanna 2026 4934-4-180 / Implanted: Qty: 1 on 11/25/2016 by Dewayne Felix MD at [facility] Ankle 0000 / 0000 Nut External Fixation 6mm [place] Short #4933-1-010 - S0000 Left: Tamanna 4933-1-010 / Implanted: Qty: 25 on 11/25/2016 by Dewayne Felix MD at [facility] Ankle 0000 / 0000 [place] External Fixation 6mm Kathryn Carbon #4933-1-702 - S000 Left: [place] 11/25/2026 4933-1-702 / Implanted: Qty: 14 on 11/25/2016 by Dewayne Felix MD at [facility] Ankle 000 / 0000 [place] External Fixation 4mm [place] Yellow #4933-1-712 - S0000 Left: [place] 11/25/2026 4933-1-712 / Implanted: Qty: 1 on 11/25/2016 by Dewayne Felix MD at [facility] Ankle 0000 / 0000 Screw, Fixos Headless Compression 7.3d743ne [place] #640355 - S0 Left: [place] 03/03/2027 895600 / Implanted: Qty: 1 on 03/03/2017 by Dewayne Felix MD at [facility] Ankle 0 / 0 documented as of this encounter Results Not on filedocumented in this encounter Insurance Payer Benefit Plan / Subscriber ID Effective Dates Phone Address Type Group [facility] MEDICAID OF xxxxxxxxx 2018-Present [phone] [address] [place] [id number] [place] [phone] documented as of this encounter Advance Directives Name Relationship Healthcare Agent Communication Relationship Geovanny Boyd Mother Primary healthcare agent [email or web address]
--- OUTSIDE RECORDS SUMMARY | 2019-07-09 07:34 | XMS REPORT | Summary of Care ---
:1985 Author Organization [facility] Address [address] [place] [address] Care Team Providers Name Role Phone Orthopedics, Tdc Unavailable Unavailable Max Velarde [employer]ACHINE Primary Care Provider Reason for Referral Radiology Services (STAT) Status Reason Specialty Diagnoses / Referred By Referred To Procedures Contact Contact New Request Diagnostic Diagnoses History of section [facility] Radiology Procedures US LOWER EXTREMITY VEIN WITH COMPRESSION BILATERAL (ONLY FOR RULE OUT DVT) MD Mabel [address] [place], [place] [id number] Radiology Services (STAT) Status Reason Specialty Diagnoses / Referred By Referred To Procedures Contact Contact New Request Diagnostic Diagnoses History of section [facility] [place] Radiology Procedures US LOWER EXTREMITY VEIN WITH COMPRESSION BILATERAL (ONLY FOR RULE OUT DVT) MD Mabel [address] [place], [place] [id number] Reason for Visit Reason Comments LEG SWELLING Hypertension Auth/Cert Status Reason Specialty Diagnoses / Referred By Contact Referred To Contact Procedures Obstetrics Diagnoses POST BLEED HIGH BLOOD PRESSURE Jsa3 [address] [place] [id number] Encounter Details Date Type Department Care Team Description 12/31/2018 - Hospital Encounter Labor and Delivery [place] Severe 01/01/2019 (JSA3) MD Mabel pre-eclampsia, [address] [place] [address] condition [place] [address] [place] [address] [phone] Allergies Active Allergy Reactions Severity Noted Date Comments Aspirin Unknown - See comments 12/24/2009 Unable to take d/t clotting disorder. Penicillin Unknown - See comments 06/05/2016 documented as of this encounter (statuses as of 01/01/2019) Medications Medication Sig Dispensed Refills Start End Status Date Date PNV 67-iron ps-folate Take 1 Each by 30 capsule 7 07/21/19 Active no.1-dha (VITAFOL mouth daily. 19 ULTRA) 29 mg iron- 1 mg-200 mg CapIndications: Supervision of high risk in second trimester vitamin B-12 500 mcg Take 500 mcg by 0 Active tablet mouth daily. vitamin C 100 mg tablet Take 100 mg by 0 Active mouth daily. ferrous sulfate 325 mg Take 1 tablet 100 tablet 3 10/17/19 Active (65 mg iron) by mouth 2 19 tabletIndications: (two) times Anemia of mother in daily. , antepartum docusate calcium 240 mg Take 1 capsule 30 capsule 0 12/25/19 Active capsuleIndications: S/P by mouth once 19 section daily as needed for Constipation. simethicone 80 mg Take 2 tablets 30 tablet 0 12/25/19 Active chewable by mouth after 19 tabletIndications: S/P meals and at section bedtime as needed for Gas. HYDROcodone-acetaminoph Take 1 tablet 10 tablet 0 01/02/20 Active en 5-325 mg by mouth every 19 tabletIndications: S/P 6 (six) hours section as needed for Pain (scale 4-6). hydroCHLOROthiazide 50 Take 1 tablet 30 tablet 0 01/02/20 Active mg tabletIndications: by mouth daily. 19 History of section HYDROcodone-acetaminoph Take 1 tablet 20 tablet 0 12/25/19 Discontinued en 5-325 mg by mouth every 19 019 tabletIndications: S/P 6 (six) hours section as needed for Pain (scale 4-6) (If uncontrolled by Ibuprofen). furosemide (LASIX) 40 Take 1 tablet 3 tablet 0 12/30/19 Discontinued mg tabletIndications: by mouth daily. 19 019 Essential hypertension, Pre-eclampsia in period, Lower extremity edema hydrALAZINE 10 mg Take 1 tablet 12 tablet 0 12/30/19 Discontinued tabletIndications: by mouth every 019 Essential hypertension, 6 (six) hours. 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 Bishop (cell [phone]) - Notify Pharamacy for Nova7 to be [...] 2006 - Desires BTL Problem Noted Date Severe pre-eclampsia, condition or complication 01/01/2019 37 weeks gestation of 12/20/2018 Research study patient: ECCCO: Group C 12/13/2018 Overview: Notice of research participation in the [facility] Trial: IRB # [id number]. PI- [place] [...] concerns, you may page the PRD at [phone]. Anemia of mother in , antepartum 11/19/2018 [...] as of this encounter (statuses as of 01/01/2019) Resolved Problems Problem Noted Date Resolved Date Threatened 11/22/2018 11/22/2018 Anemia of mother in , antepartum 08/02/2018 10/09/2018 Nausea and vomiting during 06/26/2018 10/09/2018 Headache in 06/26/2018 10/09/2018 Susceptible to varicella (non-immune), currently 05/30/20182018 Overview: Address pp Surgery, elective 02/02/2017 05/29/2018 Ankle fracture, bimalleolar, closed, left, sequela 02/02/2017 10/09/2018 Overview: Added automatically from request for surgery [id number] Cellulitis 12/30/2016 05/29/2018 Infection 12/29/2016 05/29/2018 Bleeding disorder 11/27/2016 05/29/2018 Pain 11/25/2016 05/29/2018 Bleeding 10/19/2016 05/29/2018 Pain, dental 10/11/2016 05/29/2018 Overview: Added automatically from request for surgery [id number] Infection of bone of left ankle 09/09/2016 10/09/2018 Obesity in 09/08/2016 11/19/2018 Unspecified dental caries 08/08/2016 05/29/2018 Tooth pain 08/08/2016 05/29/2018 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 06/05/2016 11/03/2016 Anemia 05/21/2016 05/29/2018 documented as of this encounter (statuses as of 01/01/2019) Immunizations Name Administration Dates Next Due TDAP [...] Sign Reading Time Taken Comments Blood Pressure 124/85 01/01/2019 9:00 AM CDT Pulse 60 01/01/2019 9:00 AM CDT Temperature 36.8 C (98.2 F) 01/01/2019 8:15 AM CDT Respiratory Rate 18 01/01/2019 9:00 AM CDT Oxygen Saturation 98% 01/01/2019 9:00 AM CDT Inhaled Oxygen Concentration - - Weight 101.7 kg (224 lb 1.6 oz) 12/31/2018 10:07 PM CDT Height - - Body Mass Index 36.17 12/31/2018 3:21 PM CDT documented in this encounter Plan of Treatment Date Type Specialty Care Team Description 01/11/2019 Routine Visit OB Satellites Rimma Duran, [employer]DER MACHINE [address] [facility] [place] [address] [phone] Health Maintenance Due Date Last Done Comments PNEUMOCOCCAL 0-64 YEARS COMBINED SERIES (1 1990 of 1 - PPSV23) INFLUENZA VACCINE (#1) 2018 PAP SMEAR 05/29/2021 05/29/2018, 03/30/2004 DTaP,Tdap,and Td Vaccines (2 - Td) 10/15/2028 10/15/2018 documented as of this encounter Implants Implanted Type Area Sports Agent Device Shelf Model / Identifier Expiration Date Serial / Lot Nail T2 Ankle Arthrodesis [id number] Left Tamanna F & A #[id number] - S0 NAIL Left: Tamanna 09/14/2021 [id number] / Implanted: Qty: 1 on 03/03/2017 by Dewayne Felix MD at [facility] Ankle 0 / [id number] Pin, [place] [employer] Half [place] 5mm 150 X 25mm #[id number] PIN Left: Tamanna 08/15/2019 [id number] / Implanted: Qty: 1 on 11/25/2016 by Dewayne Felix MD at [facility] Ankle 0000 / [id number] Hexapod Strut PIN Left: [place] 11/25/2026 4935-0-040 / Implanted: Qty: 2 on 11/25/2016 by Dewayne Felix MD at [facility] Ankle 0000 / 000 Pin, [place] Self[employer]illing Half [place] 5mm 150 X 25mm #[id number] PIN Left: [place] 07/15/2021 [id number] / Implanted: Qty: 1 on 11/25/2016 by Dewayne Felix MD at [facility] Ankle 0000 / [id number] Pin, [place] Self[employer] [place] 5mm 150 X 25mm #[id number] PIN Left: Tamanna 04/16/2021 [id number] / Implanted: Qty: 1 on 11/25/2016 by Dewayne Felix MD at [facility] Ankle 0000 / [id number] Pin, [place] Self[employer]Drilling Half [place] 5mm 150 X 25mm #[id number] PIN Left: Tamanna 04/16/2021 [id number] / Implanted: Qty: 1 on 11/25/2016 by Dewayne Felix MD at [facility] Ankle 0000 / [id number] Pin, [place] Self[employer]Drilling [place] 5mm 150 X 25mm #[id number] PIN Left: [place] 07/15/2021 [id number] / Implanted: Qty: 1 on 11/25/2016 by Dewayne Felix MD at [facility] Ankle 0000 / [id number] Wire [place] - Medium 1.5 To 2.0 Mm PIN Left: [place] 11/25/2026 4933-1- 002 / Implanted: Qty: 2 on 11/25/2016 by Dewayne Felix MD at [facility] Ankle 0000 / 0000 Wire [place] Adapter Short PIN Left: [place] 11/25/2026 4933-1-004 / Implanted: Qty: 2 on 11/25/2016 by Dewayne Felix MD at [facility] Ankle 0000 / 0000 [place] Pin Adaptor, Short 6mm # 4933-1-020 - S0000 PIN Left: Tamanna 2019 4933-1-020 / Implanted: Qty: 3 on 11/25/2016 by Dewayne Felix MD at [facility] Ankle 0000 / 0000 Hexapod Strut Medium PIN Left: [place] 4935-0-030 / Implanted: Qty: 6 on 11/25/2016 by Dewayne Felix MD at [facility] Ankle 0000 / 0000 Foot Arch RING Left: [place] 11/25/2026 4934-6-180 / Implanted: Qty: 1 on 11/25/2016 by Dewayne Felix MD at [facility] Ankle 0000 / 0000 Screw, [place]anna 5 X 30mm Fully Thrded Locking #[id number] - S0 SCREW Left: [place] 06/14/2021 [id number] / Implanted: Qty: 1 on 03/03/2017 by Dewayne Felix MD at [facility] Ankle 0 / [id number] Screw, [place] 5 X 50mm Fully Thrded Locking #[id number] - S0 SCREW Left: Tamanna 10/14/2020 [id number] / Implanted: Qty: 1 on 03/03/2017 by Dewayne Felix MD at [facility] Ankle 0 / [id number] Screw Headless Compression [id number] Tamanna #[id number] - S0 SCREW Left: Tamanna 03/03/2027 [id number] / Implanted: Qty: 1 on 03/03/2017 by Dewayne Felix MD at [facility] Ankle 0 / 0 K Wire [id number] WIRE Left: [place]anna 11/25/2026 [id number] / Implanted: Qty: 2 on 11/25/2016 by Dewayne Felix MD at [facility] Ankle 0000 / 0000 Wire With [place] - Kathryn 2.0 X 450 Mm WIRE Left: [place] 11/25/2026 4933-8- 040 / Implanted: Qty: 2 on 11/25/2016 by Dewayne Felix MD at [facility] Ankle 0000 / 0000 [place] External Fixation 1.5mm-2mm Kathryn Short Carbon #4933-1-001 - S0000 Left: Tamanna 11/25/2026 4933-1-001 / Implanted: Qty: 4 on 11/25/2016 by Dewayne Felix MD at [facility] Ankle 0000 / 0000 [place] External Fixation Long Carbon 40mml Threaded #4933-1-021 - S0000 Left: [place] 11/25/2026 4933-1-021 / Implanted: Qty: 2 on 11/25/2016 by Dewayne Felix MD at [facility] Ankle 0000 / 0000 Set Ring External Fixation Full 180mm Id Carbon Holex5 F/Foot & Ankle Fixation #4933-5-180 - S0000 Left: Tamanna 11/25/2026 4933-5-180 / Implanted: Qty: 3 on 11/25/2016 by Dewayne Felix MD at [facility] Ankle 0000 / 0000 Ring External Fixation 180mm #4934-4-180 - S0000 Left: [place] 2026 4934-4-180 / Implanted: Qty: 1 on 11/25/2016 by Dewayne Felix MD at [facility] Ankle 0000 / 0000 Nut External Fixation 6mm Kathryn Short #4933-1-010 - S0000 Left: Tamanna 4933-1-010 / Implanted: Qty: 25 on 11/25/2016 by Dewayne Felix MD at [facility] Ankle 0000 / 0000 [place] External Fixation 6mm Kathryn Carbon #4933-1-702 - S000 Left: Tamanna 11/25/2026 4933-1-702 / Implanted: Qty: 14 on 11/25/2016 by Dewayne Felix MD at [facility] Ankle 000 / 0000 Washer External Fixation 4mm Kathryn Yellow #4933-1-712 - S0000 Left: Tamanna 11/25/2026 4933-1-712 / Implanted: Qty: 1 on 11/25/2016 by Dewayne Felix MD at [facility] Ankle 0000 / 0000 Screw, Fixos Headless Compression [id number] [place] #[id number] - S0 Left: [place] 03/03/2027 [id number] / Implanted: Qty: 1 on 03/03/2017 by Dewayne Felix MD at [facility] Ankle 0 / 0 documented as of this encounter Procedures Procedure Name Priority Date/Time Associated Comments Diagnosis US LOWER EXTREMITY STAT 01/01/2019 2:50 History of Results for this VEIN WITH COMPRESSION AM CDT section procedure are in BILATERAL (ONLY FOR the results RULE OUT DVT) section. PROTEIN CREAT RATIO STAT 12/31/2018 11:17 Results for this URINE RANDOM PM CDT procedure are in the results section. URINALYSIS STAT 12/31/2018 11:17 Results for this PM CDT procedure are in the results section. CBC WITH DIFFERENTIAL STAT 12/31/2018 11:16 Results for this PM CDT procedure are in the results section. CBC WITH DIFF STAT 12/31/2018 11:16 Results for this PM CDT procedure are in the results section. URIC ACID STAT 12/31/2018 11:16 Results for this PM CDT procedure are in the results section. LACTATE DEHYDROGENASE STAT 12/31/2018 11:16 Results for this PM CDT procedure are in the results section. ALANINE AMINO STAT 12/31/2018 11:16 Results for this TRANSFERASE(SGPT PM CDT procedure are in the results section. CREATININE STAT 12/31/2018 11:16 Results for this PM CDT procedure are in the results section. SGOT (ASPARTATE AMINO STAT 12/31/2018 11:16 Results for this TRANSFER) PM CDT procedure are in the results section. documented in this encounter Results US LOWER EXTREMITY VEIN WITH COMPRESSION BILATERAL (ONLY FOR RULE OUT DVT) ( 2:50 AM CDT) Specimen Impressions Performed At PACS/VR/DOSE No evidence of deep venous thrombosis in the bilateral lower extremity. Georgiana Luther MD., have reviewed this study and agree with the above report. Narrative Performed At LOWER EXTREMITY DOPPLER ULTRASOUND PACS/VR/DOSE HISTORY:rule out DVT Patient POD 10 with thromboasthenia, bilateral lower extremity swelling worse on the left with redness and +ve grover sign. FINDINGS: The bilateral common femoral, great saphenous, proximal, middle, and distal superficial femoral veins as well as the popliteal veins exhibit normal flow, are fully compressible, and augment normally. Procedure Note [facility], Radiant Results Inft User - 01/01/2019 8:17 AM CDT LOWER EXTREMITY DOPPLER ULTRASOUND HISTORY: rule out DVT Patient POD 10 with thromboasthenia, bilateral lower extremity swelling worse on the left with redness and +ve grover sign. FINDINGS: The bilateral common femoral, great saphenous, proximal, middle, and distal superficial femoral veins as well as the popliteal veins exhibit normal flow, are fully compressible, and augment normally. IMPRESSION No evidence of deep venous thrombosis in the bilateral lower extremity. IAmos MD., have reviewed this study and agree with the above report. Performing Organization Address City/State/[facility] Phone Number PACS/VR/DOSE Urinalysis (12/31/2018 11:17 PM CDT) APPEARANCE Clear Clear [facility] COLOR Yellow Yellow [facility] PH 6.0 4.8 - 8.0 [facility] SP GRAVITY 1.016 1.003 - 1.030 [facility] GLU U QUAL Normal Normal [facility] BLOOD Negative Negative [facility] KETONES Negative Negative [facility] PROTEIN Negative Negative [facility] UROBILIN Normal Normal [facility] BILIRUBIN Negative Negative [facility] NITRITE Negative Negative [facility] LEUK MISBAH Negative Negative [facility] RBC/HPF 3 0 - 3 HPF [facility] WBC/HPF 1 0 - 5 HPF [facility] BACTERIA Negative Negative [facility] MUCOUS Slight (A) Negative LPF [facility] SQ EPITH 3 (H) <=2 HPF [facility] HYAL CAST 3 (H) <=2 LPF [facility] Specimen Urine - URINE, CLEAN CATCH Performing Organization Address City/State/Zipcode Phone Number [facility] CLIA: [id number], [address] [place] [address] [facility] Protein CREAT Ratio Urine Random (12/31/2018 11:17 PM CDT) T. PROT U 11 mg/dL [facility] CREAT U 153.3 mg/dL [facility] Protein/Creatinine 0.1 0.0 - 2.0 [facility] Ratio Urine Specimen Urine - URINE, CLEAN CATCH Performing Organization Address City/State/Zipcode Phone Number [facility] CLIA: [id number], [address] [place] [address] [facility] CBC WITH DIFFERENTIAL (12/31/2018 11:16 PM CDT) WBC 8.72 4.30 - 11.10 [facility] 10*3/L SERVICES RBC 3.55 (L) 3.93 - 5.25 [facility] 10*6/L SERVICES HGB 10.1 (L) 11.6 - 15.0 [facility] g/dL SERVICES HCT 33.2 (L) 35.7 - 45.2 % [facility] MCV 93.5 80.6 - 95.5 fL [facility] MCH 28.5 25.9 - 32.8 pg [facility] MCHC 30.4 (L) 31.6 - 35.1 [facility] g/dL SERVICES RDW-SD 50.6 (H) 39.0 - 49.9 fL [facility] RDW-CV 14.8 12.0 - 15.5 % [facility] PLT 186 166 - 358 [facility] 10*3/L SERVICES MPV 10.6 9.5 - 12.9 fL [facility] NRBC/100 WBC 0.0 0.0 - 10.0 /100 [facility] WBCs SERVICES NRBC x10^3 <0.01 10*3/L [facility] GRAN MAT (NEUT) % 60.1 % [facility] IMM GRAN % 0.70 % [facility] LYMPH % 18.1 % [facility] MONO % 6.1 % [facility] EOS % 14.3 % [facility] BASO % 0.7 % [facility] GRAN MAT x10^3(ANC) 5.24 1.88 - 7.09 [facility] 10*3/uL SERVICES IMM GRAN x10^3 0.06 0.00 - 0.06 [facility] 10*3/uL SERVICES LYMPH x10^3 1.58 1.32 - 3.29 [facility] 10*3/uL SERVICES MONO x10^3 0.53 0.33 - 0.92 [facility] 10*3/uL SERVICES EOS x10^3 1.25 (H) 0.03 - 0.39 [facility] 10*3/uL SERVICES BASO x10^3 0.06 0.01 - 0.07 [facility] 10*3/uL SERVICES Specimen Blood - HAND, LEFT Performing Organization Address [facility] Phone Number [facility] CLIA: [id number], [address] [place] [address] [facility] Lactate Dehydrogenase (12/31/2018 11:16 PM CDT) LDH 781 (H) 300 - 600 U/L [facility] Specimen Blood - HAND, LEFT Performing Organization Address [facility] Phone Number [facility] CLIA: [id number], [address] [place] [address] [facility] Alanine Amino Transferase (SGPT) (12/31/2018 11:16 PM CDT) ALT(SGPT) 21 9 - 51 U/L [facility] Specimen Blood - HAND, LEFT Performing Organization Address [facility] Phone Number [facility] CLIA: [id number], [address] [place] [address] [facility] SGOT (Asparate Amino Transfer) (12/31/2018 11:16 PM CDT) AST(SGOT) 30 13 - 40 U/L [facility] Specimen Blood - HAND, LEFT Performing Organization Address [facility] Phone Number [facility] CLIA: [id number], [address] [place] [address] [facility] Serum Creatinine (12/31/2018 11:16 PM CDT) CREATININE 0.62 0.50 - 1.04 [facility] mg/dL SERVICES eGFR Calculation 110.2 mL/min/1.73m2 [facility] (Non-) SERVICES eGFR Calculation 133.5 mL/min/1.73m2 [facility] () SERVICES Specimen Blood - HAND, LEFT Narrative Performed At Association of Glomerular Filtration Rate (GFR) and Staging [facility] of Kidney Disease* + + + + | GFR (mL/min/1.73 m2)| With Kidney Damage|Without Kidney Damage + + + + |>90|Stage one| Normal + + + + |60-89|Stage two| Decreased GFR + + + + |30-59|Stage three| Stage three + + + + |15-29|Stage four | Stage four + + + + |<15 (or dialysis)|Stage five | Stage five + + + + *Each stage assumes the associated GFR [...] abnormalities in imaging tests). Performing Organization Address City/[facility]/Zipcode Phone Number [facility] CLIA: [id number], [address] [place], [place] [address] [facility] Uric Acid Serum (12/31/2018 11:16 PM CDT) URIC ACID 8.2 (H) 2.9 - 6.0 mg/dL [facility] Specimen Blood - HAND, LEFT Performing Organization Address [facility] Phone Number [facility] CLIA: [id number], [address] [place], [place] [address] [phone] [facility] documented in this encounter Visit Diagnoses Diagnosis History of section - Primary Other postprocedural status S/P section Other postprocedural status Severe pre-eclampsia, condition or complication documented in this encounter Administered Medications Medication Order MAR Action Action Date Dose Rate Site calcium gluconate 100 mg/mL (10%) injection 1,000 mg 1,000 mg, Slow IV Push, PRN - SEE INSTRUCTIONS, Starting 12/31/18 at 2307, Until Discontinued, Routine, magnesium toxicity D5W 0.45% NaCl (1/2NS) IV New Bag 12/31/2018 11:33 PM CDT 1,000 mL 100 mL/ hr infusion 1,000 mL at 100 mL/hr, 1,000 mL, IV Infusion, CONTINUOUS, Starting Mon12/31/18 at 2315, Until Discontinued, SUSI magnesium sulfate 4 mEq/mL (50 %) injection 16 mEq 16 mEq (2 g), Slow IV Push, PRN - SEE INSTRUCTIONS, 2 doses, Starting Mon at 2307, Until Discontinued, Routine, For seizure activity (patient already on magnesium sulfate) magnesium sulfate 4 mEq/mL (50 %) injection 32 mEq 32 mEq (4 g), Slow IV Push, PRN - SEE INSTRUCTIONS, Starting Mon12/31/18 at 2307, Until Discontinued, Routine, For seizure activity (patient not on magnesium sulfate) medroxyPROGESTERone Given 01/01/2019 12:31 PM 150 mg Left Ventrogluteal- IM (DEPO-PROVERA) injection 150 CDT mg 150 mg, Intramuscular, [id number], First dose on Mon01/01/19 at 1015, Until Discontinued, Routine Medication Order MAR Action Action Date Dose Rate Site niwlytcjoj-qkskdmwsxjucf-fcoo Given 01/01/2019 8:52 AM CDT 2 tablets (ESGIC) 50-325-40 mg tablet 2 tablet 2 tablet, Oral, ONCE, 1 dose, Mon01/01/19 at 0945, Routine HYDROcodone-acetaminophen (NORCO 5) 5-325 Given 01/01/2019 12:56 AM CDT 1 tablet mg tablet 1 tablet 1 tablet, Oral, ONCE, 1 dose, Mon01/01/19 at 0145, Routine HYDROcodone-acetaminophen (NORCO 5) 5-325 Given 01/01/2019 3:55 AM CDT 1 tablet mg tablet 1 tablet 1 tablet, Oral, ONCE, 1 dose, Mon01/01/19 at 0500, Routine magnesium sulfate in LR 40 gram/500 New Bag 12/31/2018 11:33 PM CDT 2 g/hr 25 mL/hr mL IV Solution 2 g/hr (25 mL/hr), at 25 mL/hr, IV Infusion, CONTINUOUS, Starting Mon12/31/18 at 2315, Until Mon01/01/19 at 1114, SUSI documented in this encounter Insurance Payer Benefit Plan / Subscriber ID Effective Dates Phone Address Type Group [employer] MEDICAID OF xxxxxxxxx 2018-Present [phone] [address] [place] [id number] [place] [phone] (Home) [place] [address] documented as of this encounter Advance Directives Name Relationship Healthcare Agent Communication Relationship Geovanny Boyd Mother Primary healthcare agent [email or web address] [employer]"
--- NOTE | 2019-07-09 08:00 | ER ---
Nurse's Notes [facility] Name: Bri Boyd Age: 34 yrs Sex: Female : 1985 Arrival Date: 07/09/2019 Time: 07:07 Bed 20 Private MD: Diagnosis: Bronchitis, not specified as acute or chronic Presentation: 07/08 07:18 Chief complaint: Patient states: mild cough x 2 weeks. Pt now reports low grade fever ss and fatigue that began over the past few days. Coronavirus screen: Patient reports a subjective fever or greater than 100.4F, or cough, or shortness of breath, or difficulty breathing. Patient denies travel on a cruise ship or to a country the [facility] currently lists as an affected area. Patient denies contact with known and/or suspected case of COVID-19. Ebola Screen: Patient denies exposure to infectious person. Patient denies travel to an Ebola-affected area in the 21 days before illness onset. Initial Sepsis Screen: Does the patient meet any 2 criteria? No. Patient's initial sepsis screen is negative. Does the patient have a suspected source of infection? No. Patient's initial sepsis screen is negative. Risk Assessment: Do you want to hurt yourself or someone else? Patient reports no desire to harm self or others. 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 - Social history:: Smoking status: Patient reports the use of cigarette tobacco products, denies chronic smoking, but will smoke occasionally. - Family history:: not pertinent. - Hospitalizations: : No recent hospitalization is reported. Screenin:40 Abuse screen: Denies threats or abuse. Nutritional screening: On. Tuberculosis tw2 screening: No symptoms or risk factors identified. Fall Risk None identified. Assessment: 07:08 General: Appears in no apparent distress. well groomed, Behavior is calm, cooperative, tw2 appropriate for age. 07:08 Pain: Denies pain. Neuro: Level of Consciousness is awake, alert, obeys commands, tw2 Oriented to person, place, time, situation. Cardiovascular: Heart tones S1 S2 Patient's skin is warm and dry. Rhythm is regular. Respiratory: Reports shortness of breath at rest on exertion cough that is dry, persistent Airway is patent Respiratory effort is even, unlabored, Respiratory pattern is regular, symmetrical, Breath sounds are clear bilaterally. GI: No signs and/or symptoms were reported involving the gastrointestinal system. Abdomen is flat, Bowel sounds present X 4 quads. : No signs and/or symptoms were reported regarding the genitourinary system. EENT: No signs and/or symptoms were reported regarding the EENT system. Derm: No signs and/or symptoms reported regarding the dermatologic system. Musculoskeletal: Range of motion: intact in all extremities. 08:16 Reassessment: Patient appears in no apparent distress at this time. No changes from tw2 previously documented assessment. Patient and/or family updated on plan of care and expected duration. Pain level reassessed. Patient is alert, oriented x 3, equal unlabored respirations, skin warm/dry/pink. Vital Signs: 07:18 BP 132 / 72; Pulse 84; Resp 16; Temp 98.1(TE); Pulse Ox 100% on R/A; Weight 84.82 kg; ss Height 5 ft. 7 in. (170.18 cm); Pain 7/10; 07:18 Body Mass Index 29.29 (84.82 kg, 170.18 cm) ED Course: 07:07 Patient arrived in ED. mr 07:08 Raza De León MD is Attending Physician. rn 07:10 Akua Chairez RN is Primary Nurse. tw2 07:11 Bed in low position. Call light in reach. secured entrance monitor on. Pulse ox on. NIBP on. tw2 07:24 Flu Sent. tw2 07:24 Strep Sent. tw2 07:25 Triage completed. ss 07:26 Arm band placed on right wrist. ss 07:49 XRAY Chest (1 view) In Process Unspecified. EDMS 08:16 No provider procedures requiring assistance completed. Patient did not have IV access tw2 during this emergency room visit. Administered Medications: No medications were administered Outcome: 08:00 Discharge ordered by . rn 08:16 Patient left the ED. tw2 08:16 Discharged to home ambulatory, with mask on at this time. tw2 08:16 Condition: stable 08:16 Discharge instructions given to patient, Instructed on discharge instructions, follow up and referral plans. medication usage, Demonstrated understanding of instructions, follow-up care, medications, Prescriptions given X 1. Signatures: Dispatcher [employer] EDPA Inga Zarco Raza De León MD MD rn Smirch, Shelby, RN RN ss Wise, Tara, RN RN tw2 Corrections: (The following items were deleted from the chart) 08:19 08:17 General: Appears in no apparent distress. tw2 tw2
--- NOTE | 2019-07-09 08:01 | EDPHYS ---
Physician Documentation [facility] Name: Bri Boyd Age: 34 yrs Sex: Female : 1985 Arrival Date: 07/09/2019 Time: 07:07 Bed 20 Private MD: ED Physician Raza De León HPI: 07/08 07:40 This 34 yrs old Female presents to ER via Ambulatory with complaints of rn Cough, Breathing Difficulty. 07:40 The patient or guardian reports cough. Onset: The symptoms/episode began/occurred 2 rn week(s) ago. Severity of symptoms: At their worst the symptoms were mild, in the emergency department the symptoms are unchanged. Modifying factors: The symptoms are alleviated by nothing, the symptoms are aggravated by nothing. The patient has not experienced similar symptoms in the past. Reports subjective fever recently, assoc with cough productive of green sputum for 2 weeks, + smoker, no sick contacts/travel/exposure to COVID-19 patient. No known sick contacts. Reports sore throat and cough. No sob. . 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 - Social history:: Smoking status: Patient reports the use of cigarette tobacco products, denies chronic smoking, but will smoke occasionally. - Family history:: not pertinent. - Hospitalizations: : No recent hospitalization is reported. ROS: 07:40 Constitutional: + subjective fever Eyes: Negative for injury, pain, redness, and rn ortho, ENT: + sore throat Cardiovascular: Negative for chest pain, palpitations, and edema, Respiratory: + cough and sob Abdomen/GI: Negative for abdominal pain, nausea, vomiting, diarrhea, and constipation, MS/Extremity: Negative for injury and deformity, Skin: Negative for injury, rash, and discoloration, Neuro: Negative for headache, weakness, numbness, tingling, and seizure. Exam: 07:40 Constitutional: This is a well developed, well nourished patient who is awake, alert, rn and in no acute distress. ambulatory to room without assistance or distress. Head/Face: Normocephalic, atraumatic. Eyes: Pupils equal round and reactive to light, extra-ocular motions intact. Lids and lashes normal. Conjunctiva and sclera are non-icteric and not injected. Cornea within normal limits. Periorbital areas with no swelling, redness, or edema. Cardiovascular: Regular rate and rhythm. No pulse deficits. Respiratory: Lungs have equal breath sounds bilaterally, clear to auscultation. No increased work of breathing, no retractions or nasal flaring. Skin: Warm, dry MS/ Extremity: Pulses equal, no cyanosis. Neuro: Awake and alert, GCS 15 Vital Signs: 07:18 BP 132 / 72; Pulse 84; Resp 16; Temp 98.1(TE); Pulse Ox 100% on R/A; Weight 84.82 kg; ss Height 5 ft. 7 in. (170.18 cm); Pain 7/10; 07:18 Body Mass Index 29.29 (84.82 kg, 170.18 cm) ss MDM: 07:08 Patient medically screened. rn 07:53 Differential Diagnosis: Bronchitis Influenza Upper Respiratory Infection Pharyngitis rn Allergic Rhinitis Viral Syndrome Pneumonia. 07:53 Data reviewed: vital signs, nurses notes, lab test result(s), radiologic studies, plain rn films. 07:54 Counseling: I had a detailed discussion with the patient and/or guardian regarding: the rn historical points, exam findings, and any diagnostic results supporting the discharge/admit diagnosis, lab results, radiology results, the need for outpatient follow up, to return to the emergency department if symptoms worsen or persist or if there are any questions or concerns that arise at home. Response to treatment: and as a result, I will discharge patient. Special discussion: I discussed with the patient/guardian in detail that at this point there is no indication for admission to the hospital. It is understood, however, that if the symptoms persist or worsen the patient needs to return immediately for re-evaluation. ED course: Pt afebrile, normal vitals, CXR consistent with bronchitis, no patchy infiltrates to suggest COVID-19, will dc home with abx given change in xray compared to previous, and smoker with hematologic problem. . 08:00 Counseling: I had a detailed discussion with the patient and/or guardian regarding: rn smoking cessation. 07/08 07:15 Order name: Strep; Complete Time: 07:54 rn 07/08 07:15 Order name: Flu; Complete Time: 07:54 rn 07/08 07:15 Order name: XRAY Chest (1 view); Complete Time: 08:12 rn 07/08 07:41 Order name: Throat Culture EDMS Administered Medications: No medications were administered Disposition: 07/09/19 08:00 Discharged to Home. Impression: Bronchitis, not specified as acute or chronic. - Condition is Stable. - Discharge Instructions: Acute Bronchitis, Adult. - Prescriptions for Zithromax Z- Long 250 mg Oral Tablet - take 1 tablet by ORAL route as directed for 5 days Day 1 - take two (2) tablets one time. Day 2, 3, 4 , 5 take one (1) tablet once daily.; 6 tablet. - Medication Reconciliation Form, Thank You Letter, Antibiotic Education, Prescription Opioid Use, Work release form form. - Follow up: Private Physician; When: As needed; Reason: Recheck today's complaints, Re-evaluation by your physician. - Problem is an ongoing problem. - Symptoms have improved. Signatures: Dispatcher [employer] EDMS Raza De León MD MD rn Smirch, Shelby, RN RN ss Akua Chairez RN RN tw2 Corrections: (The following items were deleted from the chart) 08:01 07:54 ED course: Pt afebrile, normal vitals, CXR consistent with bronchitis, no patchy rn infiltrates to suggest COVID-19, will dc home with abx given change in xray compared to previous, and smoker.. rn 08:16 08:00 07/09/2019 08:00 Discharged to Home. Impression: Bronchitis, not specified as tw2 acute or chronic. Condition is Stable. Forms are Medication Reconciliation Form, Thank You Letter, Antibiotic Education, Prescription Opioid Use. Follow up: Private Physician; When: As needed; Reason: Recheck today's complaints, Re-evaluation by your physician. Problem is an ongoing problem. Symptoms have improved. rn
--- NOTE | 2019-07-09 08:09 | RAD REPORT ---
EXAM DESCRIPTION: RAD - Chest Single View - 07/09/2019 7:49 am CLINICAL HISTORY: COUGH, fever COMPARISON: October 2015 TECHNIQUE: AP portable chest image was obtained 07/09/2019 7:49 am . FINDINGS: Lungs are clear. Heart and vasculature are normal. No measurable pleural effusion and no p neumothorax. No acute bony abnormality seen. No acute aortic findings suspected. IMPRESSION: No acute cardiopulmonary process. No significant change from comparison.
[2019-07-09 08:29] VITALS: BP 132/72; TEMP 98.1; O2SAT 100
== END 2019-07-09 08:16 | disposition home or self-care (01) ==
LOC: ER 07:04
DX: J40 Bronchitis, not specified as acute or chronic (principal); F17.210 Nicotine dependence, cigarettes, uncomplicated; Z88.6 Allergy status to analgesic agent; Z91.048 Other nonmedicinal substance allergy status
CPT/HCPCS: 71045; 87070; 87081; 87804; 99284

== ENCOUNTER 2019-07-13 16:29 | Observation (INO) | payer SELFPAY ==
--- OUTSIDE RECORDS SUMMARY | 2019-07-13 16:32 | XMS REPORT ---
:1985 [facility] Address [address] [place] [address] Dr. Tierney [address] [place] [id number] Care Team Providers Name Role Phone Unavailable Unavailable Unavailable Problems This patient has no known problems. Allergies, Adverse Reactions, Alerts This patient has no known allergies or adverse reactions. Medications This patient has no known medications.
--- OUTSIDE RECORDS SUMMARY | 2019-07-13 16:45 | XMS REPORT | Summary of Care ---
:1985 Author Organization [facility] Address [address] [place] [id number] Care Team Providers Name Role Phone Orthopedics, Tdc Unavailable Unavailable Rimma Duran Primary Care Provider Reason for Visit Reason Comments No Contact Encounter Details Date Type Department Care Team Description 07/13/2019 Nurse Triage [facility] Aracelis Douglas, MCKENZIE No Contact [address] [place] [id number] [place] [address] Allergies Active Allergy Reactions Severity Noted Date Comments Aspirin Unknown - See comments 12/24/2009 Unable to take d/t clotting disorder. 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 Bishop (cell [phone]) - Notify Pharamacy for Nova7 to be [...] 2006 - Desires BTL Problem Noted Date Abnormal TSH 02/01/2019 Fatty liver 02/01/2019 Other fatigue 02/01/2019 Severe pre-eclampsia, condition or complication 01/01/2019 Research study patient: ECCCO: Group C 12/13/2018 Overview: Notice of research participation in the [facility] Trial: IRB # [id number]. PI- Modesto De [...] concerns, you may page the PRD at [phone]. 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 Chronic hepatitis C without hepatic coma 08/08/2016 documented as of this encounter (statuses as of 07/13/2019) Resolved Problems Problem Noted Date Resolved Date 37 weeks gestation of 12/20/2018 01/11/2019 Threatened 11/22/2018 11/22/2018 Placental abnormality 10/09/2018 01/11/2019 Anemia of mother in , antepartum 08/02/2018 10/09/2018 Nausea and vomiting during 06/26/2018 10/09/2018 Headache in 06/26/2018 10/09/2018 Susceptible to varicella (non-immune), currently 05/30/20182018 Overview: Address pp High risk , antepartum 05/29/2018 01/11/2019 Surgery, elective 02/02/2017 05/29/2018 Ankle fracture, bimalleolar, closed, left, sequela 02/02/2017 10/09/2018 Overview: Added automatically from request for surgery [id number] Cellulitis 12/30/2016 05/29/2018 Infection 12/29/2016 05/29/2018 Bleeding disorder 11/27/2016 05/29/2018 Pain 11/25/2016 05/29/2018 Bleeding 10/19/2016 05/29/2018 Pain, dental 10/11/2016 05/29/2018 Overview: Added automatically from request for surgery [id number] Infection of bone of left ankle 09/09/2016 10/09/2018 Obesity in 09/08/2016 11/19/2018 Unspecified dental caries 08/08/2016 05/29/2018 Tooth pain 08/08/2016 05/29/2018 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 06/05/2016 11/03/2016 Anemia 05/21/2016 05/29/2018 documented as of this encounter (statuses as of 07/13/2019) Immunizations Name Administration Dates Next Due TDAP [...] filedocumented in this encounter Plan of Treatment Health Maintenance Due Date Last Done Comments PNEUMOCOCCAL 0-64 YEARS COMBINED SERIES (1 1990 of 1 - PPSV23) INFLUENZA VACCINE (#1) 2018 PAP SMEAR 05/29/2021 05/29/2018, 03/30/2004 DTaP,Tdap,and Td Vaccines (2 - Td) 10/15/2028 10/15/2018 documented as of this encounter Implants Implanted Type Area Smoke And Flame Specialist Device Shelf Model / Identifier Expiration Date Serial / Lot Nail T2 Ankle Arthrodesis [id number] Left Tamanna F & A #[id number] - S0 NAIL Left: Tamanna 09/14/2021 [id number] / Implanted: Qty: 1 on 03/03/2017 by Dewayne Felix MD at [facility] Ankle 0 / [id number] Pin, Tamanna Self-Drilling [place] 5mm 150 X 25mm #[id number] PIN Left: Bradley 08/15/2019 [id number] / Implanted: Qty: 1 on 11/25/2016 by Dewayne Felix MD at [facility] Ankle 0000 / [id number] Hexapod Strut PIN Left: Bradley 11/25/2026 4935-0-040 / Implanted: Qty: 2 on 11/25/2016 by Dewayne Felix MD at [facility] Ankle 0000 / 000 Pin, Tamanna Self-Drilling [place] 5mm 150 X 25mm #[id number] PIN Left: Bradley 07/15/2021 [id number] / Implanted: Qty: 1 on 11/25/2016 by Dewayne Felix MD at [facility] Ankle 0000 / [id number] Pin, Bradley Self-Drilling [place] 5mm 150 X 25mm #[id number] PIN Left: Tamanna 04/16/2021 [id number] / Implanted: Qty: 1 on 11/25/2016 by Dewayne Felix MD at [facility] Ankle 0000 / [id number] Pin, Tamanna Self-Drilling [place] 5mm 150 X 25mm #[id number] PIN Left: Tamanna 04/16/2021 [id number] / Implanted: Qty: 1 on 11/25/2016 by Dewayne Felix MD at [facility] Ankle 0000 / [id number] Pin, Bradley Self-Drilling [place] 5mm 150 X 25mm #[id number] PIN Left: Bradley 07/15/2021 [id number] / Implanted: Qty: 1 on 11/25/2016 by Dewayne Felix MD at [facility] Ankle 0000 / [id number] Wire [place] - Medium 1.5 To 2.0 Mm PIN Left: Tamanna 11/25/2026 4933-1- 002 / Implanted: Qty: 2 on 11/25/2016 by Dewayne Felix MD at [facility] Ankle 0000 / 0000 Wire [place] Adapter Short PIN Left: Bradley 11/25/2026 [id number] / Implanted: Qty: 2 on 11/25/2016 by Dewayne Felix MD at [facility] Ankle 0000 / 0000 [place] Pin Adaptor, Short 6mm # 4933-1-020 - S0000 PIN Left: Bradley 2019 4933-1-020 / Implanted: Qty: 3 on 11/25/2016 by Dewayne Felix MD at [facility] Ankle 0000 / 0000 Hexapod Strut Medium PIN Left: Tamanna 4935-0-030 / Implanted: Qty: 6 on 11/25/2016 by Dewayne Felix MD at [facility] Ankle 0000 / 0000 Foot Arch RING Left: Tamanna 11/25/2026 4934-6-180 / Implanted: Qty: 1 on 11/25/2016 by Dewayne Felix MD at [facility] Ankle 0000 / 0000 Screw, Bradley 5 X 30mm Fully Thrded Locking #[id number] - S0 SCREW Left: Tamanna 06/14/2021 [id number] / Implanted: Qty: 1 on 03/03/2017 by Dewayne Felix MD at [facility] Ankle 0 / [id number] Screw, Tamanna 5 X 50mm Fully Thrded Locking #[id number] - S0 SCREW Left: Tamanna 10/14/2020 [id number] / Implanted: Qty: 1 on 03/03/2017 by Dewayne Felix MD at [facility] Ankle 0 / [id number] Screw Headless Compression [id number] Bradley #[id number] - S0 SCREW Left: Bradley 03/03/2027 [id number] / Implanted: Qty: 1 on 03/03/2017 by Dewayne Felix MD at [facility] Ankle 0 / 0 K Wire [id number] WIRE Left: Bradley 11/25/2026 [id number] / Implanted: Qty: 2 on 11/25/2016 by Dewayne Felix MD at [facility] Ankle 0000 / 0000 Wire With [place] - Kathryn 2.0 X 450 Mm WIRE Left: Tamanna 11/25/2026 4933-8- 040 / Implanted: Qty: 2 on 11/25/2016 by Dewayne Felix MD at [facility] Ankle 0000 / 0000 [place] External Fixation 1.5mm-2mm Kathryn Short Carbon #4933-1-001 - S0000 Left: Bradley 11/25/2026 4933-1-001 / Implanted: Qty: 4 on 11/25/2016 by Dewayne Felix MD at [facility] Ankle 0000 / 0000 [place] External Fixation Long Carbon 40mml Threaded #4933-1-021 - S0000 Left: Bradley 11/25/2026 4933-1-021 / Implanted: Qty: 2 on 11/25/2016 by Dewayne Felix MD at [facility] Ankle 0000 / 0000 Set Ring External Fixation Full 180mm Id Carbon Holex5 F/Foot & Ankle Fixation #4933-5-180 - S0000 Left: Tamanna 11/25/2026 4933-5-180 / Implanted: Qty: 3 on 11/25/2016 by Dewayne Felix MD at [facility] Ankle 0000 / 0000 Ring External Fixation 180mm #4934-4-180 - S0000 Left: Bradley 2026 4934-4-180 / Implanted: Qty: 1 on 11/25/2016 by Dewayne Felix MD at [facility] Ankle 0000 / 0000 Nut External Fixation 6mm Kathryn Short #4933-1-010 - S0000 Left: Bradley 4933-1-010 / Implanted: Qty: 25 on 11/25/2016 by Dewayne Felix MD at [facility] Ankle 0000 / 0000 [place] External Fixation 6mm Kathryn Carbon #4933-1-702 - S000 Left: Bradley 11/25/2026 4933-1-702 / Implanted: Qty: 14 on 11/25/2016 by Dewayne Felix MD at [facility] Ankle 000 / 0000 Washer External Fixation 4mm Kathryn Yellow #4933-1-712 - S0000 Left: Tamanna 11/25/2026 4933-1-712 / Implanted: Qty: 1 on 11/25/2016 by Dewayne Felix MD at [facility] Ankle 0000 / 0000 Screw, Fixos Headless Compression [id number] Tamnana #[id number] - S0 Left: Tamanna 03/03/2027 [id number] / Implanted: Qty: 1 on 03/03/2017 by Dewayne Felix MD at [facility] Ankle 0 / 0 documented as of this encounter Results Not on filedocumented in this encounter Insurance Payer Benefit Plan / Subscriber ID Effective Phone Address Type Group [facility] xxxxxxxxx 2018-Em[address] Medicaid HEALTH CHOICE - HEALTH CHOICE [place] [id number] MANAGED MEDICAID [place], [place] [id number] documented as of this encounter Advance Directives Name Relationship Healthcare Agent Communication Relationship Geovanny Boyd Mother Primary healthcare agent [email or web address]
--- OUTSIDE RECORDS SUMMARY | 2019-07-13 16:45 | XMS REPORT | Summary of Care ---
:1985 Author Organization [facility] Address [address] [place] [id number] Care Team Providers Name Role Phone Orthopedics, Tdc Unavailable Unavailable Rimma Duran Primary Care Provider Reason for Visit Reason Comments Vaginal Bleeding Encounter Details Date Type Department Care Team Description 07/13/2019 Nurse Triage [facility] Melinda Baker, RN Vaginal Bleeding [address] [id number] Allergies Active Allergy Reactions Severity Noted Date [...] on 12/24/18 - Notify Dr. Bishop (cell [phone]) - Notify Pharamacy for Nova7 to be [...] Notice of research participation in the [facility] Trial: IRB # [id number]. PI- [...] concerns, you may page the PRD at [phone]. anemia 11/19/2018 Obesity (BMI 30-39.9) 10/22/2018 Rubella [...] Overview: Added automatically from request for surgery [id number] Cellulitis 12/30/2016 05/29/2018 Infection 12/29/2016 05/29/2018 Bleeding disorder 11/27/2016 05/29/2018 Pain 11/25/2016 05/29/2018 Bleeding 10/19/2016 05/29/2018 Pain, dental 10/11/2016 05/29/2018 Overview: Added automatically from request for surgery [id number] Infection of bone of left ankle 09/09/2016 [...] of this encounter Implants Implanted Type Area Search Engine Optimization Manager Device Shelf Model / Identifier Expiration Date Serial / Lot Nail T2 Ankle Arthrodesis [id number] Left Tamanna F & A #[id number] - S0 NAIL Left: Hazard 09/14/2021 [id number] / Implanted: Qty: 1 on 03/03/2017 by Dewayne Felix MD at [facility] Ankle 0 / [id number] Pin, Hazard Self-Drilling Half [place] 5mm 150 X 25mm #5017-8-150s PIN Left: Hazard 08/15/2019 5017-8-150S / Implanted: Qty: 1 on 11/25/2016 by Dewayne Felix MD at [facility] Ankle 0000 / [id number] Hexapod Strut PIN Left: Hazard 11/25/2026 4935-0-040 / Implanted: Qty: 2 on 11/25/2016 by Dewayne Felix MD at [facility] Ankle 0000 / 000 Pin, Hazard Self-Drilling Half [place] 5mm 150 X 25mm #5017-8-150s PIN Left: Tamanna 07/15/2021 5017-8-150S / Implanted: Qty: 1 on 11/25/2016 by Dewayne Felix MD at [facility] Ankle 0000 / [id number] Pin, Hazard Self-Drilling Half [place] 5mm 150 X 25mm #5017-8-150s PIN Left: Tamanna 04/16/2021 5017-8-150S / Implanted: Qty: 1 on 11/25/2016 by Dewayne Felix MD at [facility] Ankle 0000 / [id number] Pin, Hazard Self-Drilling Half [place] 5mm 150 X 25mm #5017-8-150s PIN Left: Tamanna 04/16/2021 5017-8-150S / Implanted: Qty: 1 on 11/25/2016 by Dewayne Felix MD at [facility] Ankle 0000 / [id number] Pin, Tamanna Self-Drilling Half [place] 5mm 150 X 25mm #5017-8-150s PIN Left: Hazard 07/15/2021 5017-8-150S / Implanted: Qty: 1 on 11/25/2016 by Dewayne Felix MD at [facility] Ankle 0000 / [id number] Wire Eastsound - Medium 1.5 To 2.0 Mm PIN Left: Tamanna 11/25/2026 4933-1- 002 / Implanted: Qty: 2 on 11/25/2016 by Dewayne Felix MD at [facility] Ankle 0000 / 0000 Wire Eastsound Adapter Short PIN Left: Hazard 11/25/2026 4933-1-004 / Implanted: Qty: 2 on 11/25/2016 by Dewayne Felix MD at [facility] Ankle 0000 / 0000 [place] Pin Adaptor, Short 6mm # 4933-1-020 - S0000 PIN Left: Hazard 2019 4933-1-020 / Implanted: Qty: 3 on 11/25/2016 by Dewayne Felix MD at [facility] Ankle 0000 / 0000 Hexapod Strut Medium PIN Left: Hazard 4935-0-030 / Implanted: Qty: 6 on 11/25/2016 by Dewayne Felix MD at [facility] Ankle 0000 / 0000 Foot Arch RING Left: Hazard 11/25/2026 4934-6-180 / Implanted: Qty: 1 on 11/25/2016 by Dewayne Felix MD at [facility] Ankle 0000 / 0000 Screw, Hazard 5 X 30mm Fully Thrded Locking #1896-5030s - S0 SCREW Left: Hazard 06/14/2021 1896-5030S / Implanted: Qty: 1 on 03/03/2017 by Dewayne Felix MD at [facility] Ankle 0 / [id number] Screw, Hazard 5 X 50mm Fully Thrded Locking #1896-5050s - S0 SCREW Left: Hazard 10/14/2020 [id number] / Implanted: Qty: 1 on 03/03/2017 by Dewayne Felix MD at [facility] Ankle 0 / [id number] Screw Headless Compression [id number] Tamanna #[id number] - S0 SCREW Left: Hazard 03/03/2027 [id number] / Implanted: Qty: 1 on 03/03/2017 by Dewayne Felix MD at [facility] Ankle 0 / 0 K Wire [id number] WIRE Left: Tamanna 11/25/2026 5101-2-450 / Implanted: Qty: 2 on 11/25/2016 by Dewayne Felix MD at [facility] Ankle 0000 / 0000 Wire With [place] - Kathryn 2.0 X 450 Mm WIRE Left: Tamanna 11/25/2026 4933-8- 040 / Implanted: Qty: 2 on 11/25/2016 by Dewayne Felix MD at [facility] Ankle 0000 / 0000 Eastsound External Fixation 1.5mm-2mm Kathryn Short Carbon #4933-1-001 - S0000 Left: Tamanna 11/25/2026 4933-1-001 / Implanted: Qty: 4 on 11/25/2016 by Dewayne Felix MD at [facility] Ankle 0000 / 0000 Eastsound External Fixation Long Carbon 40mml Threaded #4933-1-021 - S0000 Left: Hazard 11/25/2026 4933-1-021 / Implanted: Qty: 2 on 11/25/2016 by Dewayne Felix MD at [facility] Ankle 0000 / 0000 Set Ring External Fixation Full 180mm Id Carbon Holex5 F/Foot & Ankle Fixation #4933-5-180 - S0000 Left: Tamanna 11/25/2026 4933-5-180 / Implanted: Qty: 3 on 11/25/2016 by Dewayne Felix MD at [facility] Ankle 0000 / 0000 Ring External Fixation 180mm #4934-4-180 - S0000 Left: Tamanna 2026 4934-4-180 / Implanted: Qty: 1 on 11/25/2016 by Dewayne Felix MD at [facility] Ankle 0000 / 0000 Nut External Fixation 6mm Kathryn Short #4933-1-010 - S0000 Left: Hazard 4933-1-010 / Implanted: Qty: 25 on 11/25/2016 by Dewayne Felix MD at [facility] Ankle 0000 / 0000 Eastsound External Fixation 6mm Kathryn Carbon #4933-1-702 - S000 Left: Tamanna 11/25/2026 4933-1-702 / Implanted: Qty: 14 on 11/25/2016 by Dewayne Felix MD at [facility] Ankle 000 / 0000 Washer External Fixation 4mm Kathryn Yellow #4933-1-712 - S0000 Left: Hazard 11/25/2026 4933-1-712 / Implanted: Qty: 1 on 11/25/2016 by Dewayne Felix MD at [facility] Ankle 0000 / 0000 Screw, Fixos Headless Compression [id number] Tamanna #[id number] - S0 Left: Tamanna 03/03/2027 [id number] / Implanted: Qty: 1 on 03/03/2017 by Dewayne Felix MD at [facility] Ankle 0 / 0 documented as of this encounter Results Not on filedocumented in this encounter Insurance Payer Benefit Plan / Subscriber ID Effective Phone Address Type Group [facility] xxxxxxxxx [address] Medicaid HEALTH CHOICE - HEALTH CHOICE nt [id number] MANAGED MEDICAID [place], [place] MEDICAID [id number] documented as of this encounter Advance Directives Name Relationship Healthcare Agent Communication Relationship Geovanny Boyd Mother Primary healthcare agent [email or web address]
--- NOTE | 2019-07-13 17:03 | RAD REPORT ---
EXAM DESCRIPTION: RAD - Chest Single View - 07/13/2019 4:56 pm CLINICAL HISTORY: Cough;SOB Chest pain. COMPARISON: Chest Single View dated 07/09/2019; Chest Single View dated 10/26/2015; Chest Single View dated 09/26/2015; CHEST SINGLE VIEW dated 09/07/2014 FINDINGS: Portable technique limits examination quality. The lungs are grossly clear. The heart is normal in size. No displaced fractures. IMPRESSION: No acute intrathoracic process suspected.
[2019-07-13 17:37] LABS: Urine Blood 3+ (NEG); Urine Glucose NEGATIVE (NEG); Urine Protein NEGATIVE (NEG)
[2019-07-13 17:53] LABS: Absolute Lymphocytes (CBC) 1.5 K/uL (0.7-4.9); Basophils % 0.5 % (0-1.3); Lymphocytes % 27.1 % (15.3-44.8); MPV 9.5 fL (7.6-11.3); RBC Red Blood Cell Count 1.69 M/uL (3.86-4.86)
[2019-07-13 17:58] LABS: Protime INR 1.24
[2019-07-13 18:04] LABS: Hematocrit 11.5 % (36.0-45.0)
[2019-07-13 18:11] LABS: ALT/SGPT 15 U/L (12-78); AST/SGOT 8 U/L (15-37); Alkaline Phosphatase 64 U/L (45-117); BUN Blood Urea Nitrogen 6 mg/dL (7-18); Bicarbonate 23 mmol/L (21-32); Bilirubin Direct < 0.1 mg/dL (0-0.2); Bilirubin Total 0.2 mg/dL (0.2-1.0); Glucose Level 112 mg/dL (74-106); Magnesium 2.1 mg/dL (1.8-2.4); NT PRO-BNP 73 pg/mL (<125); Potassium 3.7 mmol/L (3.5-5.1); Protein, Total 6.2 g/dL (6.4-8.2); Sodium Level 140 mmol/L (136-145); Troponin (Emerg Dept Use Only) < 0.02 ng/mL (0.0-0.045)
[2019-07-13] MEDS ORDERED: NA CHLORIDE 0.9% 1,000 ML ONE (18:31)
[2019-07-13] MEDS ORDERED: ACETAMINOPHEN 500 MG TAB ONE (19:11)
--- NOTE | 2019-07-13 19:45 | RAD REPORT ---
EXAM DESCRIPTION: US - Transvaginal Study Probe - 07/13/2019 7:33 pm CLINICAL HISTORY: VAGINAL BLEEDING Pelvic pain. COMPARISON: PELVIC COMPLETE dated 06/28/2015 FINDINGS: The uterus is normal in size, shape and echotexture. . The endometrial stripe measures 11 mm with cystic and solid lesion measuring 13 x 11 mm present in th e endometrial canal superiorly. Both ovaries are normal in size, shape and echotexture. The right ovary measures 2.9 x 2.6 cm. The left ovary measures 3.0 x 2.4 cm. No ovarian or parovarian lesions. No adnexal masses. Normal Doppler blood flow was demonstrated to both ovaries. No significant pelvic ascites. IMPRESSION: 13 x 11 mm cystic solid-appearing lesion endometrial canal superiorly could represent en dometrial polyp or fibroid /mass.Followup hysteroscopy could be performed for direct visualization of this region.
[2019-07-13 19:49] LABS: Blood Morphology Comment NOTED (NOT SEEN); Platelet Estimate DECR; Urine White Blood Cell Casts OK
[2019-07-13 19:50] LABS: Anisocytosis 2+; Hypochromasia 1+
--- NOTE | 2019-07-13 19:50 | EDPHYS ---
Physician Documentation [facility] Name: Bri Boyd Age: 34 yrs Sex: Female : 1985 Arrival Date: 07/13/2019 Time: 16:31 Bed 19 Private MD: ED Physician Gm Strong HPI: 07/12 17:00 This 34 yrs old Female presents to ER via Unassigned with complaints of cp Anemia, Shortness Of Breath. 17:00 The patient has shortness of breath with light activity. cp 17:00 Onset: The symptoms/episode began/occurred gradually. Duration: The symptoms are cp continuous, and are steadily getting worse. Associated signs and symptoms: Pertinent positives: non-productive cough, vaginal bleeding times 3 weeks, Pertinent negatives: chest pain, productive cough, fever, hemoptysis, vomiting. Severity of symptoms: in the emergency department the symptoms are unchanged. 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 ae4 Historical: - Allergies: 18:34 Aspirin; ae4 18:34 IV IRON; ae4 18:34 NSAIDS; ae4 - Home Meds: 18:34 Vitamin Oral tab once daily [Active]; ae4 - PMHx: 18:34 C Section; glansmansthrombastemia; Glanzmann Thrombasthenia; ae4 - Immunization history:: Adult Immunizations up to date, Flu vaccine is not up to date. - Social history:: Smoking status: Patient denies any tobacco usage or history of. ROS: 17:10 Eyes: Negative for injury, pain, redness, and discharge. cp 17:10 Constitutional: Negative for body aches, chills, fever, poor PO intake. 17:10 ENT: Negative for drainage from ear(s), ear pain, sore throat, difficulty swallowing, difficulty handling secretions. 17:10 Cardiovascular: Negative for chest pain, edema, palpitations. 17:10 Back: Negative for radiated pain. 17:10 MS/extremity: Negative for injury or acute deformity, pain, paresthesias. 17:10 Neuro: Negative for altered mental status, headache, weakness. 17:10 Respiratory: Positive for cough, Negative for shortness of breath, wheezing. cp 17:10 Abdomen/GI: Negative for abdominal pain, nausea, vomiting, and diarrhea, constipation, black/tarry stool, rectal bleeding. 17:10 : Positive for vaginal bleeding, Negative for urinary symptoms. 17:10 All other systems are negative. Exam: 17:12 Head/Face: Normocephalic, atraumatic. cp 17:12 Constitutional: The patient appears in no acute distress, alert, awake, non-toxic, well developed, well nourished, uncomfortable. 17:12 Eyes: Periorbital structures: appear normal, Conjunctiva: normal, no exudate, no injection, Sclera: no appreciated abnormality, Lids and lashes: appear normal, bilaterally. 17:12 ENT: External ear(s): are unremarkable, Nose: is normal, Mouth: is normal, Posterior pharynx: is normal, airway is patent, no erythema, no exudate. 17:12 Chest/axilla: Inspection: normal, Palpation: is normal, no crepitus, no tenderness. 17:12 Cardiovascular: Rate: normal, Rhythm: regular, Heart sounds: murmur, not appreciated. 17:12 Respiratory: the patient does not display signs of respiratory distress, Respirations: normal, no use of accessory muscles, no retractions, labored breathing, is not present, Breath sounds: are clear throughout, no decreased breath sounds, no stridor, no wheezing. 17:12 Back: CVA tenderness, is absent. 17:12 Skin: no rash present. 17:12 Neuro: Orientation: to person, place \T\ time. Mentation: is normal, Motor: moves all fours, strength is normal. 17:15 Abdomen/GI: Inspection: abdomen appears normal, Bowel sounds: active, all quadrants, cp Palpation: abdomen is soft and non-tender, in all quadrants. 18:10 ECG was reviewed by the Attending Physician. cp 18:26 : Pelvic Exam: Speculum exam: mild bleeding, no cervicitis, os that is closed, cp bimanual exam reveals no cervical motion tenderness, os that is closed, no uterine tenderness, no adnexa tenderness or masses bilaterally, discharge, bloody, the nurse was present for the exam. Vital Signs: 16:44 BP 115 / 46; Pulse 86; Resp 16; Temp 98.7(TE); Pulse Ox 100% on R/A; Weight 83.91 kg ae4 (R); 17:50 BP 97 / 55 Supine; Pulse 85; Resp 15; Pulse Ox 100% on R/A; ae4 17:55 BP 104 / 50 Sitting; Pulse 90; Resp 15; Pulse Ox 100% on R/A; ae4 18:00 BP 109 / 50 Standing; Pulse 98; Resp 16; Pulse Ox 100% on R/A; ae4 20:11 BP 113 / 50; Pulse 90; Resp 18; Pulse Ox 100% on R/A; mg2 21:00 BP 101 / 70; Pulse 82; Resp 18; Temp 98.1; Pulse Ox 100% on R/A; mg2 21:50 BP 102 / 55; Pulse 81; Resp 18; Temp 98.4; Pulse Ox 100% on R/A; mg2 MDM: 16:33 Patient medically screened. santana 17:00 Differential diagnosis: Anemia cardiac arrythmia, electrolyte abnormality. 19:40 Data reviewed: vital signs, nurses notes, lab test result(s), EKG, radiologic studies, cp plain films, I have discussed the patient's presentation/case with the attending Emergency Department Physician; and as a result, I will admit patient. 19:40 Test interpretation: by ED physician or midlevel provider: ECG. 19:45 Physician consultation: Mahesh Ramírez MD was contacted at 19:45, regarding admission, cp to the telemetry unit. patient's condition. 07/12 16:44 Order name: Basic Metabolic Panel; Complete Time: 19:12 07/12 19:34 Interpretation: Normal except: CL 110; GLUC 112; BUN 6; CA 8.1. 07/12 16:44 Order name: CBC with Diff; Complete Time: 20:13 07/12 19:33 Interpretation: Normal except: RBC 1.69; HGB 3.3; HCT 11.5; MCV 68.1; MCH 19.3; MCHC cp 28.4; PLT 137; RDW 19.8. 07/12 16:44 Order name: LFT's; Complete Time: 19:12 07/12 19:35 Interpretation: Normal except: AST 8; TP 6.2; ALB 3.0; A/G 0.9. 07/12 16:44 Order name: Magnesium; Complete Time: 19:12 07/12 16:44 Order name: NT PRO-BNP; Complete Time: 19:12 cp 07/12 16:44 Order name: PT-INR; Complete Time: 18:05 cp 07/12 19:36 Interpretation: Abnormal: PT 14.6. cp 07/12 16:44 Order name: Troponin (emerg Dept Use Only); Complete Time: 19:12 cp 07/12 19:35 Interpretation: TROPED < 0.02; Reviewed. 07/12 17:26 Order name: Urine Dipstick--Ancillary (enter results); Complete Time: 18:05 ms 07/12 17:26 Order name: Urine --Ancillary (enter results); Complete Time: 18:05 ms 07/12 17:41 Order name: Type And Screen ss 07/12 18:05 Order name: CBC Smear Scan; Complete Time: 20:13 EDMS 07/12 18:40 Order name: Bb Add On ss 07/12 18:46 Order name: Packed RBC Leukored EDWY 07/12 20:37 Order name: CBC with Automated Diff EDWY 07/12 16:44 Order name: XRAY Chest (1 view); Complete Time: 18:05 cp 07/12 16:44 Order name: EKG; Complete Time: 16:46 cp 07/12 18:06 Order name: US Transvaginal Study (Probe); Complete Time: 20:13 cp 07/12 20:14 Interpretation: Reviewed report. 07/12 20:37 Order name: CONS Pharmacy Consult EDMS 07/12 20:37 Order name: Regular EDWY 07/12 20:37 Order name: CBC with Automated Diff EDMS 07/12 20:37 Order name: Comprehensive Metabolic Panel EDMS 07/12 20:37 Order name: Comprehensive Metabolic Panel EDMS 07/12 20:37 Order name: Protime (+INR) EDMS 07/12 20:37 Order name: Protime (+INR) EDMS 07/12 20:37 Order name: PTT, Activated Partial Thromb EDMS 07/12 20:37 Order name: PTT, Activated Partial Thromb EDMS 07/12 16:44 Order name: Cardiac monitoring; Complete Time: 17:27 cp 07/12 16:44 Order name: EKG - Nurse/Tech; Complete Time: 18:09 cp 07/12 16:44 Order name: IV Saline Lock; Complete Time: 17:40 cp 07/12 16:44 Order name: Labs collected and sent; Complete Time: 17:40 cp 07/12 16:44 Order name: O2 Per Protocol; Complete Time: 17:27 cp 07/12 16:44 Order name: O2 Sat Monitoring; Complete Time: 17:27 cp 07/12 16:44 Order name: Orthostatics; Complete Time: 18:09 cp 07/12 16:44 Order name: IV; Complete Time: 17:40 cp 07/12 17:09 Order name: Urine Dipstick-Ancillary (obtain specimen); Complete Time: 17:26 cp 07/12 17:09 Order name: Urine Test (obtain specimen); Complete Time: 17:26 cp 07/12 18:03 Order name: Pelvic Exam Setup; Complete Time: 18:18 cp EC:10 Rate is 83 beats/min. Rhythm is regular. CO interval is normal. QRS interval is normal. cp QT interval is normal. Interpreted by me. Reviewed by me. Administered Medications: 18:28 Drug: NS 0.9% 1000 ml Route: IV; Rate: 1 bolus; Site: left antecubital; ae4 21:00 Follow up: Response: No adverse reaction; IV Status: Completed infusion; IV Intake: mg2 1000ml 19:30 Drug: Tylenol 1000 mg Route: PO; mg2 20:22 Follow up: Response: No adverse reaction mg2 20:30 Drug: fentaNYL (PF) 25 mcg Route: IVP; Site: left antecubital; mg2 21:50 Follow up: Response: No adverse reaction mg2 21:25 Drug: Benadryl 12.5 mg Route: IVP; Site: left antecubital; mg2 21:50 Follow up: Response: No adverse reaction mg2 Disposition: 07/13 13:42 Co-signature as Attending Physician, Gm Strong MD I agree with the assessment and santana plan of care. Disposition: 07/13/19 19:49 Hospitalization ordered by Mahesh Ramírez for Inpatient Admission. Preliminary diagnosis are Abnormal uterine and vaginal bleeding, unspecified, Anemia in other chronic diseases classified elsewhere, Shortness of breath. - Bed requested for Telemetry/MedSurg (Inpatient). - Status is Inpatient Admission. mg2 - Condition is Stable. - Problem is new. - Symptoms have improved. Signatures: Dispatcher [employer] EDMS Callao, NoaMCKENZIE mckinley RN, Corey, MD MD cha Nieto, Roman, MD MD rn Page, Corey, PA PA cp Marv Gong, MCKENZIE RINCON mg2 Michael Hernandez RN RN ae4 Corrections: (The following items were deleted from the chart) 07/12 16:45 16:45 Pelvic Exam Setup ordered. cp cp 18:31 17:12 Abdomen/GI: Inspection: abdomen appears normal, Bowel sounds: active, all cp quadrants, Palpation: soft, in all quadrants, moderate abdominal tenderness, in the right lower quadrant, involuntary guarding, is not appreciated, cp 18:32 17:10 Respiratory: Negative for cough, shortness of breath, wheezing, cp cp 18:32 17:10 Abdomen/GI: Positive for abdominal pain, nausea, vomiting, of the right lower cp quadrant and right groin, Negative for diarrhea, constipation, black/tarry stool, rectal bleeding, cp 18:32 17:10 : Negative for urinary symptoms, testicular pain cp cp 18:32 17:10 All other systems are negative, cp cp 19:35 19:34 Normal except: CL 110; GLUC 112; BUN 6. cp cp 19:50 19:49 Hospitalization Ordered by Mahesh Ramírez MD for Inpatient Admission. Preliminary cp diagnosis is Abnormal uterine and vaginal bleeding, unspecified; Anemia in other chronic diseases classified elsewhere. Bed requested for Telemetry/MedSurg (Inpatient). Status is Inpatient Admission. Condition is Stable. Problem is new. Symptoms have improved. cp 20:58 19:50 07/13/2019 19:49 Hospitalization Ordered by Mahesh Ramírez MD for Inpatient dw Admission. Preliminary diagnosis is Abnormal uterine and vaginal bleeding, unspecified; Anemia in other chronic diseases classified elsewhere; Shortness of breath. Bed requested for Telemetry/MedSurg (Inpatient). Status is Inpatient Admission. Condition is Stable. Problem is new. Symptoms have improved. cp 21:51 20:58 07/13/2019 19:49 Hospitalization Ordered by Mahesh Ramírez MD for Inpatient mg2 Admission. Preliminary diagnosis is Abnormal uterine and vaginal bleeding, unspecified; Anemia in other chronic diseases classified elsewhere; Shortness of breath. Bed requested for Telemetry/MedSurg (Inpatient). Status is Inpatient Admission. Condition is Stable. Problem is new. Symptoms have improved. dw
--- NOTE | 2019-07-13 19:50 | ER ---
Nurse's Notes [facility] Name: Bri Boyd Age: 34 yrs Sex: Female : 1985 Arrival Date: 07/13/2019 Time: 16:31 Bed 19 Private MD: Diagnosis: Abnormal uterine and vaginal bleeding, unspecified;Anemia in other chronic diseases classified elsewhere;Shortness of breath Presentation: 07/12 17:27 Chief complaint: Patient states: patientt states she has a "rare blood disorder" and ae4 has to get blood transfusions frequently. 17:41 Coronavirus screen: Patient denies a cough. Patient reports shortness of breath or ae4 difficulty breathing. Patient denies measured and/or subjective temperature greater than 100.4F. Patient denies travel on a cruise ship or to a country the [facility] currently lists as an affected area. Patient denies contact with known and/or suspected case of COVID-19. Patient has diagnosed anemia and diagnosed bronchitis. Ebola Screen: Patient denies exposure to infectious person. Patient denies travel to an Ebola-affected area in the 21 days before illness onset. No symptoms or risks identified at this time. Initial Sepsis Screen: Does the patient meet any 2 criteria? No. Patient's initial sepsis screen is negative. Risk Assessment: Do you want to hurt yourself or someone else? Patient reports no desire to harm self or others. 17:41 Acuity: KARIE 3 ae4 17:41 Method Of Arrival: Ambulatory ae4 18:54 Initial Sepsis Screen: Does the patient have a suspected source of infection? No. ae4 Patient's initial sepsis screen is negative. 21:21 Onset of symptoms was June 2019. mg2 Triage Assessment: 18:36 Respiratory: Onset: The symptoms/episode began/occurred gradually, the patient has ae4 moderate shortness of breath. 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 ae4 Historical: - Allergies: 18:34 Aspirin; ae4 18:34 IV IRON; ae4 18:34 NSAIDS; ae4 - Home Meds: 18:34 Vitamin Oral tab once daily [Active]; ae4 - PMHx: 18:34 C Section; glansmansthrombastemia; Glanzmann Thrombasthenia; ae4 - Immunization history:: Adult Immunizations up to date, Flu vaccine is not up to date. - Social history:: Smoking status: Patient denies any tobacco usage or history of. Screenin:49 Abuse screen: Denies threats or abuse. Denies injuries from another. Nutritional ss screening: No deficits noted. Tuberculosis screening: Never had TB. 18:54 Fall Risk None identified. ae4 Assessment: 16:40 General: Appears in no apparent distress. uncomfortable, Behavior is calm, cooperative. ae4 16:40 Pain: Denies pain. Neuro: Level of Consciousness is awake, alert, obeys commands, ae4 Oriented to person, place, time, situation, Appropriate for age. Cardiovascular: Heart tones S1 S2 present Patient's skin is warm and dry. Rhythm is regular. Respiratory: Airway is patent Respiratory effort is even, unlabored, shallow, Breath sounds are clear bilaterally. Respiratory: Reports shortness of breath at rest on exertion. GI: No signs and/or symptoms were reported involving the gastrointestinal system. : Reports vaginal bleeding that is with clots, heavy flow For 3 weeks. EENT: No signs and/or symptoms were reported regarding the EENT system. Derm: Skin is dry, Skin is pale, Skin temperature is warm Bruising that is dark purple, on right cheek, right arm, left arm, right leg and left leg Patient has many bruises of various healing stages on SAMANTHA arms and SAMANTHA legs.. Musculoskeletal: Reports Fatigue and weakness. 18:53 Reassessment: Patient appears in no apparent distress at this time. No changes from ae4 previously documented assessment. Patient is alert, oriented x 3, equal unlabored respirations, skin warm/dry/pink. 20:10 Reassessment: Patient appears in no apparent distress at this time. Patient and/or mg2 family updated on plan of care and expected duration. Pain level reassessed. 20:21 Reassessment: called blood bank and said blood is not yet ready. mg2 22:00 Reassessment: patient sent to the floor with ongoing blood transfusion. no reactions mg2 noted for the first 15 min. patient is in good condition, iv intact. Vital Signs: 16:44 BP 115 / 46; Pulse 86; Resp 16; Temp 98.7(TE); Pulse Ox 100% on R/A; Weight 83.91 kg ae4 (R); 17:50 BP 97 / 55 Supine; Pulse 85; Resp 15; Pulse Ox 100% on R/A; ae4 17:55 BP 104 / 50 Sitting; Pulse 90; Resp 15; Pulse Ox 100% on R/A; ae4 18:00 BP 109 / 50 Standing; Pulse 98; Resp 16; Pulse Ox 100% on R/A; ae4 20:11 BP 113 / 50; Pulse 90; Resp 18; Pulse Ox 100% on R/A; mg2 21:00 BP 101 / 70; Pulse 82; Resp 18; Temp 98.1; Pulse Ox 100% on R/A; mg2 21:50 BP 102 / 55; Pulse 81; Resp 18; Temp 98.4; Pulse Ox 100% on R/A; mg2 ED Course: 16:31 Patient arrived in ED. mr 16:33 [facility]. cp 16:33 Gm Strong MD is Attending Physician. cp 16:34 Michael Hernandez, MCKENZIE is Primary Nurse. ae4 16:45 Placed in gown. Bed in low position. Call light in reach. Side rails up X 1. Cardiac ae4 monitor on. Pulse ox on. NIBP on. Warm blanket given. 16:57 XRAY Chest (1 view) In Process Unspecified. EDMS 17:43 Triage completed. ae4 17:43 Arm band placed on right wrist. ae4 17:47 Inserted saline lock: 22 gauge in left antecubital area, using aseptic technique. Blood ss collected. 17:48 Missed attempt(s): 20 gauge in right antecubital area. ss 18:10 Assist provider with pelvic exam: Set up pelvic tray. Performed by Gm BECERRIL ae4 Patient tolerated well. 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 19:33 Ultrasound completed. Patient tolerated well. sg3 19:33 US Transvaginal Study (Probe) In Process Unspecified. EDMS 19:48 Mahesh Ramírez MD is Hospitalizing Provider. cp 21:19 Patient admitted, IV remains in place. mg2 Administered Medications: 18:28 Drug: NS 0.9% 1000 ml Route: IV; Rate: 1 bolus; Site: left antecubital; ae4 21:00 Follow up: Response: No adverse reaction; IV Status: Completed infusion; IV Intake: mg2 1000ml 19:30 Drug: Tylenol 1000 mg Route: PO; mg2 20:22 Follow up: Response: No adverse reaction mg2 20:30 Drug: fentaNYL (PF) 25 mcg Route: IVP; Site: left antecubital; mg2 21:50 Follow up: Response: No adverse reaction mg2 21:25 Drug: Benadryl 12.5 mg Route: IVP; Site: left antecubital; mg2 21:50 Follow up: Response: No adverse reaction mg2 Intake: 21:00 IV: 1000ml; Total: 1000ml. mg2 Outcome: 19:49 Decision to Hospitalize by Provider. cp 21:20 Admitted to Med/surg accompanied by nurse, via stretcher, room 208, with chart, Report mg2 called to MCKENZIE Arana 21:20 Condition: stable 21:20 Instructed on the need for admit, Demonstrated understanding of instructions. 21:51 Patient left the ED. mg2 Signatures: Dispatcher [employer] [facility] HaroldoInga mr CarballoAggie amos, RN RN ss Gm Lopez PA PA cp Judi Rice 3 Marv Gong RN RN mg2 Michael Hernandez RN RN ae4 Corrections: (The following items were deleted from the chart) 18:33 18:29 General: Appears ae4 ae4 18:35 17:50 BP 97 / 55; Pulse 85bpm; Resp 15bpm; Pulse Ox 100% RA; ae4 ae4 22:22 20:10 Reassessment: Patient appears in no apparent distress at this time. Patient mg2 and/or family updated on plan of care and expected duration. Pain level reassessed. Patient is alert, oriented x 3, equal unlabored respirations, skin warm/dry/pink. mg2
[2019-07-13] MEDS ORDERED: ACETAMINOPHEN 500 MG TAB PO PRN (20:31)
[2019-07-13] MEDS ORDERED: NA CHLORIDE 0.9% 250 ML ONE (20:37)
[2019-07-13] MEDS ORDERED: MEDROXYPROGEST ACET 150 MG/ML IM SCH (21:00)
[2019-07-13] MEDS ORDERED: NA CHLORIDE 0.9% 1,000 ML IV SCH (21:00)
[2019-07-13] MEDS ORDERED: DIPHENHYDRAMINE 50 MG/ML VIAL ONE (21:29)
[2019-07-13] MEDS ORDERED: MEDROXYPROGEST ACET 150 MG/ML IM ONE (21:31)
[2019-07-13] MEDS ORDERED: NA CHLORIDE 0.9% 100 ML ONE (21:45)
[2019-07-13 22:22] VITALS: O2SAT 100
[2019-07-13 22:23] VITALS: BMI 29.8
[2019-07-13] MEDS: ONDANSETRON 4 MG/2 ML VIAL IV SCH (22:36)
[2019-07-13] MEDS: clonazePAM 0.5 MG TAB PO PRN (22:48)
[2019-07-14] MEDS: ONDANSETRON 4 MG/2 ML VIAL IV SCH ×3 (01:00→08:00)
[2019-07-14] MEDS: FENTANYL CITR 100 MCG/2 ML IV PRN ×3 (02:56→12:01)
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
[2019-07-14 08:15] LABS: Absolute Lymphocytes (CBC) 0.7 K/uL (0.7-4.9); Basophils % 0.3 % (0-1.3); Lymphocytes % 8.4 % (15.3-44.8); MPV 9.2 fL (7.6-11.3); RBC Red Blood Cell Count 2.58 M/uL (3.86-4.86)
[2019-07-14 08:18] LABS: Hematocrit 19.8 % (36.0-45.0)
[2019-07-14 08:28] LABS: Protime INR 1.1
[2019-07-14 08:46] LABS: ALT/SGPT 12 U/L (12-78); AST/SGOT 7 U/L (15-37); Albumin 2.9 g/dL (3.4-5.0); Alkaline Phosphatase 60 U/L (45-117); BUN Blood Urea Nitrogen 5 mg/dL (7-18); Bicarbonate 22 mmol/L (21-32); Glucose Level 107 mg/dL (74-106); Potassium 3.8 mmol/L (3.5-5.1); Sodium Level 142 mmol/L (136-145)
--- NOTE | 2019-07-14 09:17 | EKG ---
Test Date: 2019-07-13 Test Time: 17:53:08 Mate Fishing Vessel: [place] MEASUREMENT RESULTS: Intervals: Rate: 88 NV: 138 QRSD: 78 QT: 378 QTc: 457 [place]: P: 23 NV: 138 QRS: 28 T: 7 INTERPRETIVE STATEMENTS: Normal sinus rhythm Nonspecific T wave abnormality Abnormal ECG Compared to ECG 10/26/2015 22:00:29 No significant changes Electronically Signed On 07-14-19 09:16:18 CDT by Anant Almazan
[2019-07-14] MEDS ORDERED: NA CHLORIDE 0.9% 250 ML ONE (09:32)
[2019-07-14] MEDS ORDERED: MEDROXYPROGEST ACET 150 MG/ML IM SCH (10:00)
[2019-07-14] MEDS: clonazePAM 0.5 MG TAB PO PRN (10:59)
[2019-07-14 13:07] VITALS: BP 110/63; TEMP 98.7
--- NOTE | 2019-07-14 14:11 | P.DS ---
Admission Date: 07/13/19 Discharge Date: 07/15/19 Disposition: AMA-LEFT AGAINST MEDICAL ADVIC Discharge Condition: GOOD Reason for Admission: Menorrhagia and severe anemia Brief History of Present Illness: HPI- "Patient is a 34-year-old female with a history of Glanzmann's thrombasthenia, who presents to the hospital with severe anemia. She was in the emergency room a few days ago with shortness of breath. At that time that test her for COVID- 19, and she was discharged home to be quarantined. However, they did not check any labs. She came back in because she was still short of breath and her hemoglobin was severely low at 3.5. She has had low hemoglobins like this in the past. She normally gets blood transfusion and his discharge. She is taking the Depo-Provera shot as well. This is helped her in the past. Will go ahead and get a transvaginal ultrasound, and we will admit her to the hospital for further evaluation. Will also transfuse her 4 units of packed red blood cells and repeat hemoglobin once this is complete. Her only symptom is the shortness of breath. She is probably adjusted to living with a low hemoglobin throughout life. She has a switch cleaner at [facility] we contacted and he advised transfusion and outpatient follow-up. She may need OB consultation but this can probably be done as an outpatient pending transvaginal ultrasound results" Hospital Course: Patient was transfused 4 units PRBC. Transvaginal ultrasound showed 13 x 11 mm cystic solid-appearing lesion endometrial canal superiorly could represent endometrial polyp or fibroid /mass. Followup hysteroscopy could be performed for direct visualization of this region. Discussed with pheresis specialist and advice for medroxyprogesterone & monitor for effectiveness. Plan was for possible D&C if medication was not effective in abating vaginal bleeding. Patient however refused medication and left AMA prior to repeat H and H check. Vital Signs/Physical Exam: Temp Pulse Resp BP Pulse Ox 98.7 F 62 18 110/63 100 07/14/19 12:00 07/14/19 12:00 07/14/19 12:00 07/14/19 12:00 07/14/19 12:00 Laboratory Data at Discharge: WBC 8.1 K/uL (4.3-10.9) D 07/14/19 08:05 Hgb 6.1 g/dL (12.0-15.0) L* D 07/14/19 08:05 Hct 19.8 % (36.0-45.0) L* D 07/14/19 08:05 Plt Count 106 K/uL (152-406) L D 07/14/19 08:05 PT 12.9 SECONDS (9.5-12.5) H 07/14/19 08:05 INR 1.10 07/14/19 08:05 APTT 25.7 SECONDS (24.3-36.9) 07/14/19 08:05 Sodium 142 mmol/L (136-145) 07/14/19 08:05 Potassium 3.8 mmol/L (3.5-5.1) 07/14/19 08:05 BUN 5 mg/dL (7-18) L 07/14/19 08:05 Creatinine 0.55 mg/dL (0.55-1.3) 07/14/19 08:05 Glucose 107 mg/dL (74-106) H 07/14/19 08:05 Magnesium 2.1 mg/dL (1.8-2.4) 07/13/19 17:37 Total Bilirubin 1.0 mg/dL (0.2-1.0) 07/14/19 08:05 AST 7 U/L (15-37) L 07/14/19 08:05 ALT 12 U/L (12-78) 07/14/19 08:05 Alkaline Phosphatase 60 U/L (45-117) 07/14/19 08:05 Home Medications: Hydrocodone/Acetaminophen [Lortab 10-325 mg Tablet] 1 each PO QID PRN 10/27/15 clonazePAM [Klonopin] 0.5 mg PO TID 10/27/15 Cyclobenzaprine HCl [Flexeril] 1 tab PO BEDTIME PRN 07/13/19 carisoprodoL [Soma*] 1 tab PO TID 07/13/19 Patient Discharge Instructions: Follow up with primary obgyn for further evaluation. compliance with medications. Diet: Regular Followup: OOT,OOT [Primary Care Provider] - 1-2 Days
== END 2019-07-14 13:00 | disposition left against medical advice (07) ==
LOC: ER 16:29 → ERHOLD 20:31 → 2ND 21:20
PROVIDERS: ADMIT Hospitalist; ATTEND Hospitalist
DX: D64.89 Other specified anemias (principal); D69.1 Qualitative platelet defects; N92.0 Excessive and frequent menstruation with regular cycle; N85.8 Other specified noninflammatory disorders of uterus; N93.9 Abnormal uterine and vaginal bleeding, unspecified; R06.00 Dyspnea, unspecified; R94.31 Abnormal electrocardiogram [ECG] [EKG]; Z53.29 Procedure and treatment not carried out because of patient's decision for other reasons; Z85.6 Personal history of leukemia
CPT/HCPCS: 36415; 36430; 71045; 76830; 80048; 80053; 80076; 81003; 81025; 83735; 83880; 84484; 85025; 85610; 85730; 86850; 86900; 86901; 86922; 93005; 96361; 96374; 96375; 99285; G0378; J1050; J1200; J2405; J3010; J7030; P9016

== ENCOUNTER 2020-05-02 20:51 | Emergency (ER) | payer SELFPAY ==
--- OUTSIDE RECORDS SUMMARY | 2020-05-02 21:00 | XMS REPORT | Continuity of Care Document ---
:1985 Author Organization [employer] Care Team Providers Name Role Phone [employer] Unavailable Un available Problems Problem Status Onset Classification Date Comments Sourc e Date Reported FALL Active 12/17/[address] [place] FAILED [place]LE [place] [address] [place] [address] Center ANEMIA/CLOTTING Active 06/29/19 [facility] [place]as DISORDERS/RUPTURED 16 edical OVARI Center LEFT PILON Active 05/20/19 [facility] FRACTURE [address] [place] [address] Center RUPTURE OVARIAN Active 05/09/19 [facility] [place] CYST [address] [place] [address] Center RUPTURE Active 05/09/19 [facility] HEMORRHAGIC [address] [place] [address] OVARIAN CYST,ABD Cynthia ter LIBRADO TIB FIB FRACTURE Active 04/14/[address] LT TIB/FIB FX Active 04/14/[address] CHOLATITHIASIS Active 08/30/[address] Center Cholecystitis Resolved Problem 12/23/2015 [facility] (disorder) [facility] Glanzmann's Resolved Problem 12/23/2015 [facility] thrombasthenia Medic al (disorder) Center Viral hepatitis C Resolved Problem 12/23/2015 [facility] [facility] (disorder) [facility] Cholecystitis Resolved Problem 09/03/2012 [facility] Glanzmann Resolved Problem 09/03/2012 [facility] thromboasthenia [facility] Center Hepatitis C Resolved Problem 09/03/2012 [facility] Final: 05/29/2015 [facility] Nondisplaced pilon M edical fracture of Center unspecified tibia, initial encounter for closed fracture CHOLELITHIASIS NOS Active [facility] UNSP FRACTURE OF Active [facility] SHAFT OF LEFT Medica l TIBIA, IN Center UNSP FRACTURE OF Active [facility] SHAFT OF LEFT Medica l FIBULA, I Center UNSPECIFIED Active [facility] OVARIAN CYSTS Medica l Center ENCNTR FOR GENERAL Active [facility] [facility] ADULT MEDICAL EXAM M edical W/ Center MORBID (SEVERE) Active [facility] exas OBESITY DUE TO Medic al EXCESS CA Center NONDISPLACED PILON Active [facility] [place] FRACTURE OF UNSP Med ical TIBI Center ILLNESS, Active [facility] UNSPECIFIED [facility] Center Medications Medication Details Route Status Patient Ordering Order Source Instructions Provider Date 0.3 ML Enoxaparin 30 mg, SUB-Q, Inactive [facility] sodium 100 MG/ML Q12H, X 21 2016 Medi frank Prefilled Syringe day, # 42 syr, Center [Lovenox] 0 Refill(s) senna 8.6 mg oral 17.2 mg = 2 Active [facility] tablet tab, PO, 2016 Medical Bedtime, X 10 Center day, # 20 tab, 0 Refill(s) gabapentin 300 MG 600 mg = 2 Active [facility] Oral Capsule cap, PO, 2016 Medical Q8Hnow, # 42 Center cap, 0 Refill(s) Docusate Sodium 100 mg = 1 [place] 100 MG Oral cap, PO, BID, 2016 Medica l Capsule # 28 cap, 0 Center Refill(s) gabapentin Notes: (Same [place] as: Neurontin) 2016 [facility] Acetaminophen 325 Notes: Do not Inactive [facility] MG / Hydrocodone exceed 4gm/day 2016 [facility] Bitartrate 10 MG of Center Oral Tablet [[place] acetaminophen. 10/325] (Same as: [place] 325/10) Acetaminophen 325 Notes: (Same Inactive [facility] MG / Hydrocodone as: [place] 2016 Medic al Bitartrate 5 MG 325/5) Do not C enter Oral Tablet [[place] exceed 4gm/day 5/325] of acetaminophen. Acetaminophen 325 Notes: (Same Inactive [facility] MG / Hydrocodone as: [place] 2015 Medic al Bitartrate 5 MG 325/5) Do not C enter Oral Tablet [[place] exceed 4gm/day 5/325] of acetaminophen. 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 [facility] use with blood Center product administration , Dosing Weight 68.182, kg, Route: IV, Total Volume: 250, Start Date: 12/20/15 7:44:00 CDT, Duration: 30 day, Stop date: 01/19/16 7:43:00 CDT, Replace Every: 24 hr Benzocaine 15 MG / Notes: Cepacol Inactive 12/19 [place] Menthol 3.6 MG lozenges 2016 Medical Lozenge [Cepacol Dispense 1 box Center Sore Throat Pain = 16 lozenges Relief 15/3.6] (Same As: Cepacol Lozenges) Oxycodone Notes: (Same Inactive [place] Hydrochloride 5 MG as: 2016 Medic al Oral Tablet Roxicodone) [place] heparin sodium, 5,000 unit, Inactive [place] porcine 2500 Route: SUB-Q, 2016 Medic al UNT/ML Injectable Drug form: Cynthia ter Solution INJ, Q12H, Dosing Weight 68.182, kg, Start date: 12/19/15 21:00:00 CDT, Duration: 30 day, Stop date: 01/18/16 9:00:00 CDT Tramadol Notes: Not to [place] Longer [place] exceed Active 2015 Medical 400mg/day. Center (Same As: Ultra) Celebrex Notes: NSAID. Inactive [place] Please check 2016 Medical indication. Center Not for seizure. (Same As: CeleBREX) ferrous sulfate Notes: Give No Longer [place] with food. Active 2015 Medical "Do Not Crush" [place] Calcium Gluconate 500 mg, 1 tab, No Longer 12/18 [place] 500 MG Oral Tablet Route: PO, Active 2015 Me dical Drug form: Center TAB, TID, Dosing Weight 68.182, kg, Start date: 12/19/15 13:00:00 CDT, Duration: 30 day, Stop date: 01/18/16 9:00:00 CDT Marinol Notes: (Same No Longer [place] as: Marinol) Active 2015 Medical Non-Formulary Center Drug. sennosides, INTERMEDIATE Notes: (Same No Longer H [place] as: Senokot) Active 2016 Medical Center ceFAZolin (SCIP) + Notes: (Same No Longer [place] sodium chloride As: Ancef, Active 2015 Medic al 0.9% INJ 100 mL Kefzol) [place] Cefazolin FOR IV SET ONLY MEDICATION WASTE Product Size: 1000 mg Product Wasted: ___ mg Klonopin Notes: (Same No Longer [place] As: KlonoPIN) Active 2015 [facility] Calcium Gluconate 500 mg, 1 tab, Inactive [place] 500 MG Oral Tablet Route: PO, 2016 Me dical Drug form: Center TAB, ONCE, Dosing Weight 68.182, kg, Start date: 12/18/15 16:40:00 CDT, Stop date: 12/18/15 16:40:00 CDT Potassium Chloride Notes: (Same Inactive [place] 20 MEQ Extended as: K-Dur 20) 2016 [place] Release Tablet "Do Not Crush" Ce nter With food and full glass of water remove patch Notes: Remove No Longer [facility] patch 12 hours Active 2015 [facility] application each day. Hydromorphone Notes: Same [place] as: Dilaudid 2016 [facility] Flumazenil Notes: (Same Inactive [place] as: Romazicon) 2016 [facility] Oxycodone Notes: (Same Inactive [place] as: 2016 [facility] Roxicodone) [place] Ondansetron Notes: (Same Inactive [place] as: Zofran) 2016 Medical MEDICATION Center WASTE Product Size: 4 mg Product Wasted: ___ mg Naloxone Notes: Same as Inactive [place] Narcan 2016 [facility] Amicar Notes: (Same No Longer [place] as: Amicar) Active 2015 [facility] Ancef 2 gm, Route: Inactive [place] IVPB, ONCE, 2016 Medical Dosing Weight [place] 68.182, kg, Start date: 12/18/15 10:22:00 CDT, Duration: 1 doses or times, Stop date: 12/18/15 10:22:00 CDT, Surgical Prophylaxis Only; For patients < 120 kg Klonopin PO, 0 Active [place] Refill(s) 2016 [facility] Center POLYETHYLENE Notes: No Longer [place] GLYCOL 3350 Dissolve in 8 Active 2015 Medica l oz of water or Center juice. (Same as: Miralax) Docusate Notes: (Same No Longer [place] as: Colace) Active 2016 Medical (Do Not Crush) Center Streptococcus Notes: Lightly Inactive [place] pneumoniae roll vial (DO 2016 Medical serotype 1 NOT SHAKE) Center capsular antigen before diphtheria [id number] administration protein conjugate . (Same as: vaccine / Prevnar 13) Streptococcus pneumoniae serotype 14 capsular antigen diphtheria [id number] protein conjugate vaccine / Streptococcus pneumoniae serotype 18C capsular antigen d Klonopin Notes: (Same Inactive [place] As: KlonoPIN) 2016 [facility] Potassium Chloride Notes: (Same Inactive [place] 20 MEQ Extended as: K-Dur 20) 2016 [place] Release Tablet "Do Not Crush" Ce nter With food and full glass of water Calcium Gluconate Notes: WASTE: Inactive [place] F/P - Sink; E 2016 [facility] Trash Bin gabapentin Notes: (Same No Longer [place] as: Neurontin) Active 2016 [facility] Lidocaine Notes: Apply Inactive [place] Hydrochloride 0.05 only once for 2016 Medical MG/MG Transdermal up to 12 hours Center Patch [Lidoderm] in a 24-hour period (12 hours on and 12 hours off). (Same as: Lidoderm) "Remove old patch before application of new patch" Dilaudid Notes: Same Inactive [place] as: Dilaudid 2016 [facility] Ondansetron Notes: (Same [place] Longer [place] as: Zofran) Active 2016 Medical MEDICATION Center WASTE Product Size: 4 mg Product Wasted: ___ mg Methocarbamol Notes: (Same No Longer [place] as:Robaxin) Active 2016 Medical Center Morphine Notes: (Same No Longer [place] as:MORPhine Active 2016 Medical Sulfate) Center Oxycodone Notes: (Same [place] Longer [place] Hydrochloride 5 MG as: Active 2016 Medic al Oral Tablet Roxicodone) Center Tramadol Notes: Not to [place]er [place] exceed Active 2016 Medical 400mg/day. Center (Same As: Ultram) Melatonin Notes: (Same [place] Longer [place] as: Melatonin) Active 2016 Medical [place] Acetaminophen Notes: Max [place] Longer [place] acetaminophen Active 2016 Medical 4000 mg/day (4 Center gm/day). (Same as: Tylenol Extra Strength) Sodium Chloride 1,000 mL, Inactive [place] 0.154 MEQ/ML 1,000 ml/hr, 2016 Medica l Injectable Infuse Over: 1 Center Solution hr, Route: IV, ONCE, Priority: STAT, Dosing Weight 65.909 kg, Start date: 12/17/15 20:59:00 CDT, Duration: 1 doses or times, Stop date: 12/17/15 20:59:00 CDT Dilaudid Notes: Same Inactive [facility] as: Dilaudid 2016 [facility] Notes: (Same Inactive [facility] as: Zofran) 2016 Medical MEDICATION Center WASTE Product Size: 4 mg Product Wasted: 0 mg Morphine Notes: (Same Inactive [facility] as:MORPhine 2016 Medical Sulfate) Center 6-Aminocaproic 3,000 mg = 3 Active [place] Acid 1000 MG Oral tab, PO, Q8H, 2016 Medical Tablet [Amicar] Take with Center menstrual cycle, # 90 tab, 1 Refill(s) Medroxyprogesteron Notes: (Same Inactive [facility] e as: 2016 Medical Depo-Provera) Center This is NOT Depo-SubQ Provera 104 For IM use only MEDICATION WAST[place] Product Size: 150 mg Product Wasted: ___ mg ferrous sulfate 325 mg = 1 Active [place] 325 MG Oral Tablet tab, PO, TID, 2016 Medical please take Center with vitamin c (pills or food containing Vit C), # 270 tab, 1 Refill(s) tramadol 100 mg = 2 Active [place] hydrochloride 50 tab, PO, Q6H, 2016 M edical MG Oral Tablet PRN Pain Score Ce nter 4-6, # 30 tab, 0 Refill(s) Acetaminophen 300 2 tab, PO, Active [place] MG / Codeine Q6H, PRN Pain 2016 Medic al Phosphate 30 MG Score 6-10, # Ce nter Oral Tablet 50 tab, 0 [Tylenol with Refill(s) Codeine #3] Acetaminophen 300 Notes: Do not No Longer [place] MG / Codeine exceed 4gm/day Active 2016 Medi frank Phosphate 30 MG of Center Oral Tablet acetaminophen. [Tylenol with (Same as: Codeine #3] Tylenol with Codeine # 3) Tylenol Notes: Do not No Longer [place] exceed 4 Active 2016 Medical gm/day. (Same Center as: Tylenol) 24 HR tramadol Notes: Not to Inactive [place] hydrochloride 100 exceed 2016 Medica l MG Extended 400mg/day. Center Release Tablet (Same As: Ultram) Acetaminophen 300 Notes: Do not Inactive [place] MG / Codeine exceed 4gm/day 2016 Medi frank Phosphate 30 MG of Center Oral Tablet acetaminophen. [Tylenol with (Same as: Codeine #3] Tylenol with Codeine # 3) Acetaminophen 300 Notes: Do not Inactive [place] MG / Codeine exceed 4gm/day 2016 Medi frank Phosphate 30 MG of Center Oral Tablet acetaminophen. [Tylenol with (Same as: Codeine #3] Tylenol with Codeine # 3) Tramadol Notes: Not to [place] Longer [place] exceed Active 2016 Medical 400mg/day. Center (Same As: Ultram) Acetaminophen 325 Notes: (Same Inactive [place] MG / Hydrocodone as: [place] 2016 Medic al Bitartrate 5 MG 325/5) Do not C enter Oral Tablet [[place] exceed 4gm/day 5/325] of acetaminophen. Zofran Notes: (Same No Longer [facility] as: Zofran) Active 2016 Medical MEDICATION Center WASTE Product Size: 4 mg Product Wasted: ___ mg Ofirmev Notes: Infuse Inactive [place] over 15 2016 Medical minutes Do Center not exceed 4gm/day of acetaminophen MEDICATION WASTE Product Size: 1000 mg Product Wasted: ___ mg Benadryl Notes: (Same Inactive [facility] as: Benadryl) 2016 Medical Center Clonazepam Notes: (Same No Longer [place] As: KlonoPIN) Active 2016 Medical Center Amicar Notes: (Same No Longer [facility] as: Amicar) Active 2016 Medical Center Clonazepam 4 mg, Route: [place] PO, TID, 2016 Medical Dosing Weight Center 81.818, kg, Start date: 06/29/15 21:58:00, Duration: 30 day, Stop date: 07/29/15 17:00:00 Morphine Notes: (Same No Longer [place] as:MORPhine Active 2015 Medical Sulfate) Center Dilaudid Notes: Same No Longer [place] as: Dilaudid Active 2015 Medical Center Sodium Chloride 250 mL, Rate: No Longer [place] 0.9% (titrate) 250 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 mL use with blood Center product administration , Dosing Weight 81.818, kg, Route: IV, Total Volume: 250, Start Date: 06/29/15 15:00:00, Duration: 1 doses or times, Stop date: 06/30/15 14:59:00, Replace Every: 24 hr Morphine 6 mg, Route: Inactive [place] IVP, ONCE, 2015 Medical Dosing Weight Center 81.818, kg, Start date: 06/29/15 14:53:00, Stop date: 06/29/15 14:53:00 Sodium Chloride 1,000 mL, Inactive [place] 0.154 MEQ/ML 1,000 ml/hr, 2016 Medica l Injectable Infuse Over: 1 Center Solution hr, Route: IV, 1,000, Drug form: INJ, ONCE, Priority: STAT, Dosing Weight 81.818 kg, Start date: 06/29/15 12:42:00, Duration: 1 doses or times, Stop date: 06/29/15 12:42:00 Isolyte S PH 7.4 Notes: (Same No Longer [place] 1,000 mL as: Isolyte S Active 2015 Medical PH 7.4) Center Morphine 6 mg, Route: Inactive [place] IVP, Drug 2015 Medical form: INJ, Center ONCE, Dosing Weight 81.818, kg, Priority: STAT, Start date: 06/29/15 11:17:00, Stop date: 06/29/15 11:17:00 Rika Notes: (Same Inactive [place] as: Zofran) 2015 Medical MEDICATION Center WASTE Product Size: 4 mg Product Wasted: ___ mg Morphine 6 mg, Route: Inactive [place] IVP, Drug 2016 Medical form: INJ, Center ONCE, Dosing Weight 81.818, kg, Priority: STAT, Start date: 06/29/15 8:21:00, Stop date: 06/29/15 8:21:00 Acetaminophen 325 1 tab, Route: Inactive [place] MG / Hydrocodone PO, Drug Form: 2016 Medical Bitartrate 10 MG TAB, Dosing Cynthia ter Oral Tablet [[place] Weight 81.818, 10/325] kg, ONCE, STAT, Start date: 06/29/15 8:19:00, Stop date: 06/29/15 8:19:00 Acetaminophen 325 Notes: (Same Inactive [place] MG / Hydrocodone as: [place] 2016 Medic al Bitartrate 5 MG 325/5) Do not C enter Oral Tablet [[place] exceed 4gm/day 5/325] of acetaminophen. Dilaudid 1 mg, Route: Inactive [facility] IVP, ONCE, 2016 Medical Dosing Weight Center 81.818, kg, Priority: STAT, Start date: 06/29/15 6:30:00, Stop date: 06/29/15 6:30:00 Acetaminophen 325 1 tab, PO, Active [place] MG / Hydrocodone Q4H, PRN Pain 2016 M edical Bitartrate 10 MG Score 6-10, # C enter Oral Tablet [[place] 40 tab, 0 10/325] Refill(s) Acetaminophen 325 Notes: Do not No Longer [place] MG / Hydrocodone exceed 4gm/day Active 2015 Medical Bitartrate 10 MG of Center Oral Tablet [[place] acetaminophen. 10/325] (Same as: [place] 325/10) Acetaminophen 325 Notes: Do not No Longer [place] MG / Hydrocodone exceed 4gm/day Active 2016 Medical Bitartrate 10 MG of Center Oral Tablet [[place] acetaminophen. 10/325] (Same as: [place] 325/10) Acetaminophen 325 Notes: Do not No Longer [place] MG / Hydrocodone exceed 4gm/day Active 2016 Medical Bitartrate 10 MG of Center Oral Tablet [[place] acetaminophen. 10/325] (Same as: [place] 325/10) Methadone Notes: (Same No Longer [place] as: Dolophine) Active 2016 [facility] Amicar Notes: (Same No Longer [facility] as: Amicar) Active 2015 [facility] Acetaminophen 325 Notes: No Longer [place] MG / butalbital 50 (acetaminophen Active 2015 Medical MG / Caffeine 40 -butalbital-ca Center MG Oral Capsule ffeine 325-50-40mg) Do not exceed 4 gm/day of acetaminophen. (Same as: Esgic, Fioricet) ferric oxide, Notes: Each Inactive [place] saccharated 5ml contains 2016 Medical 100mg Center elemental iron. Mix with NS (Same as:Venofer) Administer IV only. MEDICATION WASTE Product Size: 100 mg Product Wasted: ___ mg Methadone Notes: (Same No Longer [place] as: Dolophine) Active 2015 [facility] ferric oxide, Notes: Each Inactive [place] saccharated 5ml contains 2016 [facility] 100mg [place] elemental iron. Mix with NS (Same as:Venofer) Administer IV only. MEDICATION WASTE Product Size: 100 mg Product Wasted: ___ mg remove patch Notes: Remove No Longer [facility] patch 12 hours Active 2015 [facility] after Center application each day. Methadone Notes: (Same Inactive [facility] as: Dolophine) 2016 [facility] Methadone Notes: (Same [place] Longer [place] as: Dolophine) Active 2015 [facility] Lidocaine Notes: [facility] Hydro[facility] 0.05 only once for Active 2016 Medical MG/MG Transdermal up to 12 hours Center Patch in a 24-hour period (12 hours on and 12 hours off). (Same as: Lidoderm) "Remove old patch before application of new patch" Methadone Notes: (Same Inactive [facility] as: Dolophine) 2015 [facility] Acetaminophen 325 Notes: Do not No Longer [place] MG / Hydrocodone exceed 4gm/day Active 2015 Medical Bitartrate 10 MG of Center Oral Tablet [[place] acetaminophen. 10/325] (Same as: [place] 325/10) Tetrahydrocannabin 5 mg, Route: Inactive [place] ol PO, Drug form: 2016 Medical CAP, Q12H, Center Dosing Weight 72.727, kg, Priority: NOW, Start date: 05/22/15 10:22:00, Duration: 30 day, Stop date: 06/21/15 9:00:00 sennosides, INTERMEDIATE Notes: (Same No Longer 05/22/ [facility] [facility] as: Senokot) Active 2016 Medical [place] Docusate Notes: (Same No Longer [facility] as: Colace) Active 2016 Medical (Do Not Crush) Center Trazodone Notes: (Same [place] Longer [place] As: Desyrel) Active 2016 [facility] Tetrahydrocannabin Notes: (Same No Longer [facility] ol as: Marinol) Active 2015 Medical Non-Formulary Center Drug. Dilaudid Notes: Same Inactive [facility] as: Dilaudid 2015 [facility] Ancef + Sodium Notes: (Same No Longer [facility] Chloride 0.9% IV As: Ancef, Active 2015 [facility] frank 100 mL Kefzol) [place] Cefazolin FOR IV SET ONLY MEDICATION WASTE Product Size: 1000 mg Product Wasted: ___ mg Fentanyl [address] Oxycodone Notes: (Same Inactive [facility] Hydrochloride 1 as: 2016 Medical MG/ML Oral 'Roxicodone) [place] Solution Acetaminophen Notes: Max No Longer [place] acetaminophen Active 2015 Medical 4000 mg/day (4 Center gm/day). (Same as: Tylenol Extra Strength) Hydromorphone Notes: Same No Longer [place] as: Dilaudid Active 2016 [facility] Methadone Notes: (Same [place] Longer [place] as: Dolophine) Active 2016 [facility] Oxycodone Notes: (Same [place] Longer [place] Hydrochloride 5 MG as: Active 2015 Medic al Oral Tablet Roxicodone) [place] Fentanyl 72.727 Inactive [place] microgram, 2016 Medical Route: IV, [place] Drug form: INJ, ONCE, Dosing Weight 72.727, kg, PRN Pain Score 7-10, < 50 kg, Start date: 05/21/15 17:14:00, Pediatric Dosing; For procedure Ondansetron Notes: (Same Inactive [place] as: Zofran) 2016 Medical MEDICATION Center WASTE Product Size: 4 mg Product Wasted: ___ mg Naloxone Notes: Same as [place] Narcan 2016 [facility] Flumazenil Notes: (Same [place] as: Romazicon) 2016 Medical Center Hydromorphone Notes: Same [place]active [place] as: Dilaudid 2016 Medical Center Miralax Notes: No Longer [place] Dissolve in 8 Active 2016 Medical oz of water or Center juice. (Same as: Miralax) Robaxin Notes: (Same No Longer [place] as:Robaxin) Active 2016 Medical Center Tramadol Notes: Not to [place] Longer [place] exceed Active 2016 [facility] 400mg/day. Center (Same As: Ultra) Ondansetron Notes: (Same [place] Longer [place] as: Zofran) Active 2016 Medical MEDICATION Center WASTE Product Size: 4 mg Product Wasted: ___ mg Clonazepam Notes: (Same No Longer [place] As: KlonoPIN) Active 2016 Medical Center gabapentin 600 MG Notes: (Same No Longer [facility] Oral Tablet as: Neurontin) Active 2016 Medic al Center Amicar Notes: (Same No Longer [place] as: Amicar) Active 2016 Medical Center Clonazepam Notes: (Same No Longer [place] As: KlonoPIN) Active 2016 Medical Center Acetaminophen 325 Notes: No Longer [place] MG / butalbital 50 (acetaminophen Active 2016 Medical MG / Caffeine 40 -butalbital-ca Center MG Oral Capsule ffeine 325-50-40mg) Do not exceed 4 gm/day of acetaminophen. (Same as: Esgic, Fioricet) acetaminophen-hydr Notes: Do not No Longer 05/21 [place] ocodone 325 mg-10 exceed 4gm/day Active 2016 Medical mg oral tablet of Center acetaminophen. (Same as: [place] 325/10) acetaminophen-hydr Notes: Do not No Longer 05/21 ocodone 325 mg-10 exceed 4gm/day Active 2016 Medical mg oral tablet of Center acetaminophen. (Same as: [place] 325/10) acetaminophen-hydr Notes: Do not Inactive [facility] ocodone 325 mg-10 exceed 4gm/day 2016 Medical mg oral tablet of Center acetaminophen. (Same as: [place] 325/10) Acetaminophen 325 Notes: Do not Inactive [facility] MG / Hydrocodone exceed 4gm/day 2016 Medical Bitartrate 10 MG of Center Oral Tablet [[place] acetaminophen. 10/325] (Same as: [place] 325/10) Enoxaparin Notes: (Same [place] as: Lovenox) 2016 [facility] LR IV 1,000 mL 1,000 mL, No Longer [place] Rate: 75 Active 2016 Medical ml/hr, Infuse Center over: 13.3 hr, Route: IV, Dosing Weight 77.273 kg, Total Volume: 1,000, Start date: 05/20/15 14:09:00, Duration: 30 day, Stop date: 06/19/15 14:08:00 Acetaminophen Notes: Infuse Inactive [place] over 15 2016 Medical minutes Do Center not exceed 4gm/day of acetaminophen MEDICATION WASTE Product Size: 1000 mg Product Wasted: ___ mg Oxycodone Notes: (Same Inactive [facility] Hydrochloride 5 MG as: 2016 Medic al Oral Tablet Roxicodone) Center gabapentin Notes: (Same [place] as: Neurontin) 2016 [facility] Docusate Notes: (Same No Longer [place] as: Colace) Active 2016 Medical (Do Not Crush) Center Diphenhydramine Notes: (Same No Longer 05/20/ [facility] [place] as: Benadryl) Active 2016 Medical Center Ondansetron Notes: (Same [place] Longer [place] as: Zofran) Active 2016 Medical MEDICATION Center WASTE Product Size: 4 mg Product Wasted: ___ mg Acetaminophen 300 1 - 2 tab, PO, Active [place] MG / Codeine Q4H, PRN Pain, 2016 Medi frank Phosphate 30 MG X 3 day, # 20 Ce nter Oral Tablet tab, 0 [Tylenol with Refill(s) Codeine #3] 6-Aminocaproic See Active [place] Acid 1000 MG Oral Instructions, 2016 Medical Tablet [Amicar] 3 tab PO q6-8h C enter PRN for bleeding., # 60 tab, 0 Refill(s) 24 HR tramadol 100 mg = 1 Inactive [place] hydrochloride 100 tab, PO, 2016 Medic al MG Extended Daily, PRN Center Release Tablet pain, # 60 tab, 0 Refill(s) Amicar Notes: (Same Inactive [place] as: Amicar) 2016 [facility] Melatonin Notes: (Same No Longer [place] as: Melatonin) Active 2015 [facility] Acetaminophen Notes: Do not No Longer [place] exceed 4 Active 2015 Medical gm/day. 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 , Dosing Weight 77.273, kg, Route: IV, Total Volume: 250, Start Date: 05/09/15 16:47:00, Duration: 30 day, Stop date: 06/08/15 16:46:00, Replace Every: 24 hr Clonazepam Notes: (Same No Longer [place] as As: KlonoPIN) Active 2015 [facility] Notes: Infuse No Longer [place] over 15 Active 2015 [facility] Do Center not exceed 4gm/day of acetaminophen MEDICATION WASTE Product Size: 1000 mg Product Wasted: ___ mg Methadone PO, 0 Active [place] Refill(s) 2015 [facility] Clonazepam PO, TID, 0 Active [facility] Refill(s) [address] [place] [address] Acetaminophen 325 1-2 tab, PO, Active [place] MG / Hydrocodone Q4-6H, PRN 2016 Medi frank Bitartrate 10 MG Pain, # 30 Cent er Oral Tablet [[place] tab, 0 10/325] Refill(s) Dilaudid Notes: Same No Longer [place] as: Dilaudid Active [address] [place] [address] D5LR 1,000 mL 1,000 mL, No Longer Eladio as Rate: 125 Active 2015 [facility] ml/hr, Infuse Center over: 8 hr, Route: IV, Dosing Weight 77.273 kg, Total Volume: 1,000, Start date: 05/09/15 8:36:00, Duration: 30 day, Stop date: 06/08/15 8:35:00 Dilaudid Notes: Same Inactive [place] as: Dilaudid 2016 [facility] Ondansetron Notes: (Same Inactive Eladio as as: Zofran) 2016 Medical MEDICATION Center WASTE Product Size: 4 mg Product Wasted: ___ mg Morphine Notes: (Same Inactive [facility] as:MORPhine 2016 Medical Sulfate) [place] tramadol 100 mg = 2 Active [facility] hydrochloride 50 tab, PO, Q6H, 2016 M edical MG Oral Tablet X 7 day, # [address] tab, 0 Refill(s) methocarbamol 500 1,000 mg = 2 Active H [place] mg oral tablet tab, PO, Q8H, 2016 Med ical X 14 day, # 80 Center tab, 0 Refill(s) gabapentin 600 MG 600 mg = 1 Active [facility] Oral Tablet tab, PO, Q8H, 2016 Medica l # 90 tab, 0 Center Refill(s) Acetaminophen 325 1-2 tab, PO, Active H [place] MG / Hydrocodone Q4H, PRN for 2016 Me dical Bitartrate 10 MG pain, X 5 day, Center Oral Tablet [[place] # 30 tab, 0 10/325] Refill(s) 6-Aminocaproic See Active [facility] Acid 1000 MG Oral Instructions, 2016 Medical Tablet [Amicar] 3 tab PO q6-8h C enter PRN for bleeding., # 60 tab, 0 Refill(s) Acetaminophen 325 Notes: Do not Inactive [place] MG / Hydrocodone exceed 4gm/day 2016 Medical Bitartrate 10 MG of Center Oral Tablet [[place] acetaminophen. 10/325] (Same as: [place] 325/10) Methadone Notes: (Same [place] Longer [place] as: Dolophine) Active 2016 [facility] Miralax Notes: No Longer [place] Dissolve in 8 Active 2016 Medical oz of water or Center juice. (Same as: Miralax) Trazodone Notes: (Same [place] Longer [place] Hydrochloride 50 As: Desyrel) Active 2015 Me dical MG Oral Tablet Center gabapentin Notes: (Same No Longer El[place] as as: Neurontin) Active 2014 [facility] Center Methadone Notes: (Same [place] Long[place] as: Dolophine) Active 2014 [facility] Center Robaxin Notes: (Same No Longer [place] as:Robaxin) Active 2014 [facility] Center Tetrahydrocannabin Notes: (Same No Longer [place] ol as: Marinol) Active 2014 Medical Non-Formulary Center Drug. Acetaminophen [place]: [place] acetaminophen Active 2014 [facility] 4000 mg/day (4 Center gm/day). (Same as: Tylenol Extra Strength) Methadone Notes: (Same Inactive [place] as: Dolophine) 2014 [facility] Dilaudid 1 mg, Route: Inactive [place] IVP, ONCE, 2015 Medical Dosing Weight Center 81.818, kg, Priority: STAT, Start date: 04/16/15 5:06:00, Stop date: 04/16/15 5:06:00 Restoril Notes: (Same Inactive [place] As: Restoril) 2015 [facility] sennosides, INTERMEDIATE Notes: (Same No Longer [place] as: Senokot) Active 2014 [facility] Ancef + Sodium Notes: (Same No Longer [place] Chloride 0.9% IV As: Ancef, Active 2014 [facility] frank 100 mL Kefzol) Center Cefazolin FOR IV SET ONLY MEDICATION WASTE Product Size: 1000 mg Product Wasted: ___ mg Acetaminophen 325 1 tab, PO, No Longer H [place] MG / Hydrocodone Q4H, PRN for Active 2014 [place] Bitartrate 10 MG pain Center Oral Tablet [[place] 10/325] Tramadol 100 mg, Route: [place] PO, Drug form: 2015 Medical TAB, ONCE, Center Dosing Weight 81.818, kg, PRN Pain Score 4-6, Start date: 04/15/15 9:05:00 Ondansetron Notes: (Same Inactive [place] as as: Zofran) 2015 Medical MEDICATION Center WASTE Product Size: 4 mg Product Wasted: ___ mg Hydromorphone Notes: [place] as: Dilaudid 2015 Medical Center Oxycodone Notes: (Same Inactive [place] Hydrochloride 1 as: 2015 Medical MG/ML Oral 'Roxicodone) Center Solution Docusate Notes: (Same No Longer [place] as: Colace) Active 2014 Medical (Do Not Crush) Center Ancef 2 gm, Route: Inactive [place] IV, ONCE, 2015 Medical Dosing Weight Center 81.818, kg, Start date: 04/15/15 7:49:00, Duration: 1 doses or times, Stop date: 04/15/15 7:49:00 Amicar 1 gm, PO, Q6H, [place] Longer [place] 0 Refill(s) Active 2015 Medical Center Dilaudid Notes: Same No Longer [place] as: Dilaudid Active 2014 Medical Center Tramadol Notes: Not to [place]er [place] exceed Active 2014 Medical 400mg/day. Center (Same As: Ultram) Acetaminophen Notes: Infuse No Longer [place] over 15 Active 2014 Medical minutes Do Center not exceed 4gm/day of acetaminophen MEDICATION WASTE Product Size: 1000 mg Product Wasted: ___ mg gabapentin Notes: (Same No Longer [place] as: Neurontin) Active 2014 Medical Center Diphenhydramine Notes: (Same No Longer 04/15/ H [place] as: Benadryl) Active 2014 Medical Center Oxycodone Notes: (Same [place] Long[place] Hydrochloride 5 MG as: Active 2014 Medic al Oral Tablet Roxicodone) Center Morphine Notes: (Same No Longer [place] as:MORPhine Active 2014 Medical Sulfate) Center Ondansetron Notes: (Same [place]: Zofran) Active 2014 Medical MEDICATION Center WASTE Product Size: 4 mg Product Wasted: ___ mg Ketamine 20 mg, Route: Inactive 04/15[facility] IV, ONCE, 2014 Medical Dosing Weight Center 81.818, kg, Start date: 04/14/15 21:08:00, Stop date: 04/14/15 21:08:00 Propofol 20 mg, Route: Inactive 04/15[facility] IV, ONCE, 2014 Medical Dosing Weight Center 81.818, kg, Start date: 04/14/15 21:07:00, Stop date: 04/14/15 21:07:00 Ketamine 20 mg, Route: Inactive 04/15[facility] IV, ONCE, 2014 Medical Dosing Weight Center 81.818, kg, Start date: 04/14/15 21:05:00, Stop date: 04/14/15 21:05:00 Propofol 20 mg, Route: Inactive 04/15[facility] IV, ONCE, 2014 Medical Dosing Weight Center 81.818, kg, Start date: 04/14/15 21:05:00, Stop date: 04/14/15 21:05:00 Tylenol Notes: Infuse Inactive 04/15[facility] over 2014 Medical minutes Do Center not exceed 4gm/day of acetaminophen MEDICATION WASTE Product Size: 1000 mg Product Wasted: ___ mg Dilaudid 0.5 mg, Route: Inactive 04/15[facility] [place] IVP, ONCE, 2014 Medical Dosing Weight Center 81.818, kg, Priority: STAT, Start date: 04/14/15 20:34:00, Stop date: 04/14/15 20:34:00 Propofol 80 mg, Route: Inactive 04/15[facility] IVP, ONCE, 2014 Medical Dosing Weight Center 81.818, kg, Priority: STAT, Start date: 04/14/15 20:33:00, Stop date: 04/14/15 20:33:00 Ketamine 80 mg, Route: Inactive 04/15[facility] IVP, ONCE, 2014 Medical Dosing Weight Center 81.818, kg, Priority: STAT, Start date: 04/14/15 20:32:00, Stop date: 04/14/15 20:32:00 Fentanyl 100 microgram, Inactive 04/15[facility] [place] Route: IV, 2014 Medical ONCE, Dosing Center Weight 81.818, kg, Start date: 04/14/15 20:32:00, Stop date: 04/14/15 20:32:00 Amicar Notes: (Same No Longer [place] as: Amicar) Active 2014 Medical Center Dilaudid 1 mg, Route: Inactive [place] IVP, ONCE, 2014 Medical Dosing Weight Center 81.818, kg, Priority: STAT, Start date: 04/14/15 19:41:00, Stop date: 04/14/15 19:41:00 Acetaminophen 325 1 tab, Route: Inactive [place] MG / Hydrocodone PO, Drug Form: 2014 Medical Bitartrate 10 MG TAB, Dosing Cynthia ter Oral Tablet [[place] Weight 81.818, 10/325] kg, ONCE, STAT, Start date: 04/14/15 17:28:00, Stop date: 04/14/15 17:28:00 normal saline 0.9% 1,000 mL, No Longer [place] IV 1,000 mL Rate: 100 Active 2014 Medical ml/hr, Infuse Center over: 10 hr, Route: IV, Dosing Weight 81.818 kg, Total Volume: 1,000, Start date: 04/14/15 17:28:00, Duration: 30 day, Stop date: 05/14/15 17:27:00 Saline Flush 0.9% Notes: (Same No Longer [place] as: BD Active 2014 Medical Posiflush) Center Fentanyl 100 microgram, Inactive Noé delgado Route: IVP, 2014 Medical ONCE, Dosing Center Weight 81.818, kg, Priority: STAT, Start date: 04/14/15 16:54:00, Stop date: 04/14/15 16:54:00 aminocaproic acid 3 gm, 12 mL, PO Active [facility] H [place] 1.25 g/5 mL oral PO, Q6H, 1 mL, 2012 Medical syrup Substitution Center Allowed, SYRP Colace 100 mg oral 100 mg, 1 cap, PO Active [facility] [place] capsule PO, BID, 30 2012 Medical cap, Center Substitution Allowed, CAP [place] 10/325 oral 1 tab, PO, PO Active Holi[facility] [place] tablet Q4H, PRN, 2012 Medical tab, Pain, Center Substitution Allowed, Maintenance, TAB Sodium Chloride 250 mL, Rate: IV [facility] Longer [facility] [place] 0.9% (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 with 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 Center product administration , Dosing Weight 81.818, kg, Route: IV, Total Volume: 250, Duration: 1 day, Stop date: 09/01/12 9:30:00, Replace Every: 24 hr [place] 10/325 oral 2 tab, Route: PO [facility]er [facility] [place] tablet PO, Drug Form: Active 2012 Medical TAB, Dosing Center Weight 81.818, kg, Q4H, PRN Pain, Start date: 08/30/12 18:00:00, Duration: 30 day, Stop date: 09/29/12 17:59:00 hydromorphone 0.5 mg, 0.25 IVP No Longer [place] mL, Route: Active 2012 Medical IVP, Drug Center form: INJ, Q5Min, Dosing Weight 81.818, kg, PRN Pain Score 7-10, Start date: 08/30/12 13:22:00, Duration: 5 doses or times, Stop date: 08/31/12 0:00:00 flumazenil 0.2 mg, 2 mL, IVP [place] Longer [place] Route: IVP, Active 2012 Medical Drug form: Center INJ, PRN, Dosing Weight 81.818, kg, PRN Benzodiazepine Reversal, Initial dose, Start date: 08/30/12 13:22:00, Stop date: 08/31/12 0:00:00 naloxone 0.04 mg, 0.1 IVP No Longer [place] mL, Route: Active 2012 Medical IVP, Drug Center form: INJ, Q2MIN, Dosing Weight 81.818, kg, PRN Narcotic Reversal, Start date: 08/30/12 13:22:00, Duration: 8 doses or times, Stop date: 08/31/12 0:00:00 ondansetron 4 mg, 2 mL, IVP No Longer [place] Eladio as Route: IVP, Active 2012 Medical Drug form: Center INJ, ONCE, Dosing Weight 81.818, kg, PRN Nausea & Vomiting, Start date: 08/30/12 13:22:00 cefoxitin (SCIP) 1 gm, Route: IVPB No Longer Ramírez [facility] IVPB, Drug Active 2012 Medical form: INJ, [place] ONCE, Dosing Weight 81.818, kg, Start date: 08/30/12 11:21:00, Stop date: 08/30/12 11:21:00 Amicar 3 gm, 12 mL, PO No Longer Haroldo [facility] Route: PO, Active 2012 Medical Drug form: [place] SOLN, Q6H, Dosing Weight 81.818, kg, Start date: 08/29/12 20:44:00, Duration: 30 day, Stop date: 09/28/12 18:00:00 Amicar 3 gm, 12 mL, PO No Longer Haroldo [facility] Route: PO, Active 2012 Medical Drug form: [place] SOLN, Q6H, Dosing Weight 81.818, kg, Start date: 08/29/12 18:00:00, Stop date: 09/28/12 12:00:00 Colace 100 mg oral 100 mg, 1 cap, PO No Longer [place] 0 [place] capsule Route: PO, Active 2012 Medical Drug form: [place] CAP, BID, Dosing Weight 84.091, kg, Start date: 08/29/12 17:00:00, Duration: 30 day, Stop date: 09/28/12 9:00:00 diphenhydrAMINE 25 mg, 1 cap, PO No Longer Haroldo [facility] Route: PO, Active 2012 Medical Drug form: [place] CAP ONCALL, Dosing Weight 81.818, kg, Priority: Routine, Start date: 08/29/12 16:00:00, Duration: 30 day, Stop date: 09/28/12 15:59:00, Premed Blood ProductsPremed Blood Products acetaminophen 650 mg, 2 tab, PO No Longer Haroldo [facility] [facility] Route: PO, Active 2012 Medical Drug form: [place] TAB ONCALL, Dosing Weight 81.818, kg, Priority: Routine, Start date: 08/29/12 16:00:00, Duration: 30 day, Stop date: 06/14/13 15:59:00, Premed Blood Products. Not to exceed 4grams/24hrs.P remed Blood Products. Not to exceed 4grams/24hrs. Dilaudid 0.2 mg, 0.1 IV No Longer Holihan [facility] mL, Route: IV, Active 2012 Medical Drug form: Center INJ, Q4H, Dosing Weight 81.818, kg, PRN Pain, Start date: 08/29/12 15:37:00, Duration: 30 day, Stop date: 09/28/12 15:36:00 D5W 1/2NS + KCL 1,000 mL, IV No Longer [place] [facility] 20mEq/L 1000ml Rate: 100 Active 2012 Medical (Premix) 1,000 mL ml/hr, Infuse Center over: 10 hr, Route: IV, Dosing Weight 84.091 kg, Total Volume: 1,000, Start date: 08/29/12 12:51:00, Duration: 30 day, Stop date: 09/28/12 12:50:00 Zofran 4 mg, 2 mL, IV No Longer [facility] [place] Route: IV, Active 2012 Medical Drug form: [place] INJ, Q8H, Dosing Weight 84.091, kg, PRN Nausea, Start date: 08/29/12 11:20:00, Duration: 30 day, Stop date: 09/28/12 11:19:00 morphine Sulfate 2 mg, 1 mL, IVP [facility] Long[facility] [facility] Route: IVP, Active 2012 Medical Drug form: Center INJ, Q2H, Dosing Weight 84.091, kg, PRN Pain, Start date: 08/29/12 11:20:00, Duration: 30 day, Stop date: 09/28/12 11:19:00 [place] 5/325 oral 2 tab, Route: PO No Longer [facility] tablet PO, Drug Form: Active 2012 Medical TAB, Dosing Center Weight 84.091, kg, Q4H, PRN Pain, Start date: 08/29/12 11:18:00, Duration: 30 day, Stop date: 09/28/12 11:17:00 D5W 1/2NS + KCL 1,000 mL, IV No Longer [place] 20mEq/L 1000ml Rate: 75 Active 2012 Medical (Premix) 1,000 mL ml/hr, Infuse Center over: 13.3 hr, Route: IV, Dosing Weight 84.091 kg, Total Volume: 1,000, Start date: 08/29/12 11:18:00, Duration: 30 day, Stop date: 09/28/12 11:17:00 morphine Sulfate 4 mg, 1 mL, IVP No Longer Kreiner [place] Route: IVP, Active 2012 Medical Drug form: Center INJ, ONCE, Dosing Weight 84.091, kg, Start date: 08/29/12 10:31:00, Stop date: 08/29/12 10:31:00 Allergies, Adverse Reactions, Alerts Substance Category Reaction Severity Reaction Status Date Comments S ource type Reported aspirin Assertion Drug Active Eladio as allergy Medical [place] Assertion Drug Active Eladio as allergy Medical Center NSAIDs Assertion Drug Active Eladio as allergy Medical Center Immunizations Immunization Date Given Site Status Last Updated Comments Nano rce pneumococcal 12/20/2015 Not Given [facility] as 13-valent vaccine [place] [facility] Results Order Name Results Value Reference Date Interpretation Comments Nano rce Range BLOOD BANK RBC product Product available 12/19 [facility] RESULTS (12/20/15 7:44 AM) [facility] CHEM PANEL eGFR 135 12/19 Result [facility] Comment: The Medical eGFR is Center calculated using the CKD-EPI formula. In most young, healthy individuals the eGFR will be >90 mL/min/1.73m2 . The eGFR declines with age. An eGFR of 60-89 may be normal in some populations, particularly the elderly, for whom the CKD-EPI formula has not been extensively validated. Use of the eGFR is not recommended in the following populations:< br/>
Yeimi viduals with unstable creatinine concentration s, including patients and those with serious co-morbid conditions.<b r/>
Patie nts with extremes in muscle mass or diet.

The data above are obtained from the National Kidney Disease Education Program (NKDEP) which additionally recommends that when the eGFR is used in patients with extremes of body mass index for purposes of drug dosing, the eGFR should be multiplied by the estimated BMI. CHEM PANEL Chloride Lvl 109 95 - 109 12/19 a s [facility] CHEM PANEL Calcium Lvl 7.9 8.5 - 10.5 12/19 [facility] CHEM PANEL CO2 24 24 - 32 12/19 [facility] CHEM PANEL Potassium Lvl 4.8 3.5 - 5.1 12/19 [facility] CHEM PANEL Sodium Lvl 141 135 - 145 12/19 [facility] CHEM PANEL Glucose Lvl 95 70 - 99 12/19 [facility] CHEM PANEL Creatinine 0.44 0.50 - 12/19 [place] Lvl 1.40 /2015 [facility] CHEM PANEL BUN 8 7 - 22 12/19 [facility] CHEM PANEL AGAP 12.8 10.0 - 12/19 20.0 [facility] CHEM PANEL Magnesium Lvl 1.9 1.8 - 2.4 12/19 [facility] HEMATOLOGY Hypochrom 1+ None Seen 12/19 [facility] (12/20/15 5:29 AM) [facility] HEMATOLOGY Microcyte 1+ None Seen 12/19 [facility] *ABN* [facility] (12/20/15 5:29 AM) [place] HEMATOLOGY Plt Morph Normal 12/19 (12/20/15 5:29 AM) [facility] HEMATOLOGY Tot Cell Ct 100 12/19 [facility] HEMATOLOGY Anisocyte 1+ None Seen 12/19 [facility] *ABN* [facility] (12/20/15 5:29 AM) [place] HEMATOLOGY Segs-Bands # 3.9 1.5 - 8.1 12/19 [facility] HEMATOLOGY Lymphocytes 32.0 20.0 - 12/19 [place] 40.0 [facility] HEMATOLOGY Monocytes 4.0 2.0 - 12.0 12/19 [facility] HEMATOLOGY Atypical 0.0 <=0.0 % 12/19 [facility] Lymph [facility] HEMATOLOGY Segs 64.0 45.0 - 12/19 [place] 75.0 [facility] HEMATOLOGY Bands 0.0 0.0 - 11.0 12/19 [facility] HEMATOLOGY Lymphocytes # 2.0 1.0 - 5.5 12/19 [facility] HEMATOLOGY Monocytes # 0.2 0.0 - 0.8 12/19 a s [facility] HEMATOLOGY MCHC 30.5 32.0 - 12/19 [place] 36.0 [facility] HEMATOLOGY RDW 17.7 11.5 - 12/19 [place] 14.5 /2015 [facility] HEMATOLOGY MPV 9.5 7.4 - 10.4 12/19 [facility] HEMATOLOGY Platelet 110 133 - 450 12/19 [facility] HEMATOLOGY Hct 21.6 36.0 - 12/19 [place] 48.0 [facility] HEMATOLOGY WBC 6.1 3.7 - 10.4 12/19 [facility] HEMATOLOGY Hgb 6.6 12.0 - 12/19 Result [facility] 16.0 Comment: Medical Critical Center Result(s) called to Jose Luis Dan at 12/20/2015 07:07 by CN. Read back OK. HEMATOLOGY RBC 2.68 4.20 - 12/19 [place] 5.40 [facility] HEMATOLOGY MCV 80.6 80.0 - 12/19 [facility] 98.0 [facility] HEMATOLOGY MCH 24.5 27.0 - 12/19 [place] 31.0 [facility] CHEM PANEL Magnesium Lvl 2.1 1.8 - 2.4 12/18 [facility] ELECTROLYTE Sodium Lvl 142 135 - 145 12/18 [facility] ELECTROLYTE Creatinine 0.45 0.50 - 12/18 [facility] S Lvl 1.40 [facility] ELECTROLYTE Potassium Lvl 4.1 3.5 - 5.1 12/18 [place] [facility] ELECTROLYTE CO2 26 24 - 32 12/18 [facility] ELECTROLYTE Chloride Lvl 110 95 - 109 12/18 [facility] ELECTROLYTE Calcium Lvl 7.9 8.5 - 10.5 12/18 [facility] ELECTROLYTE AGAP 10.1 10.0 - 12/18 [facility] S 20.0 [facility] ELECTROLYTE eGFR 134 12/18 Result [facility] Comment: The Medical eGFR is Center calculated using the CKD-EPI formula. In most young, healthy individuals the eGFR will be >90 mL/min/1.73m2 . The eGFR declines with age. An eGFR of 60-89 may be normal in some populations, particularly the elderly, for whom the CKD-EPI formula has not been extensively validated. Use of the eGFR is not recommended in the following populations:< br/>
Yeimi viduals with unstable creatinine concentration s, including patients and those with serious co-morbid conditions.<b r/>
Patie nts with extremes in muscle mass or diet.

The data above are obtained from the National Kidney Disease Education Program (NKDEP) which additionally recommends that when the eGFR is used in patients with extremes of body mass index for purposes of drug dosing, the eGFR should be multiplied by the estimated BMI. ELECTROLYTE Glucose Lvl 111 70 - 99 12/18 [facility] ELECTROLYTE BUN 7 7 - 22 12/18 [facility] HEMATOLOGY Platelet 107 133 - 450 12/18 [facility] HEMATOLOGY MCH 24.7 27.0 - 12/18 [place] 31.0 [facility] HEMATOLOGY MCHC 32.3 32.0 - 12/18 [place] 36.0 [facility] HEMATOLOGY MPV 9.2 7.4 - 10.4 12/18 [facility] HEMATOLOGY RDW 17.5 11.5 - 12/18 [place] 14.5 /2015 [facility] HEMATOLOGY Hct 22.0 36.0 - 12/18 [place] 48.0 [facility] HEMATOLOGY MCV 76.8 80.0 - 12/18 [facility] 98.0 /2015 [facility] HEMATOLOGY Hgb 7.1 12.0 - 12/18 [place] 16.0 [facility] HEMATOLOGY RBC X 10x6 2.87 4.20 - 12/18 [place] 5.40 /2015 [facility] HEMATOLOGY WBC X 10x3 7.6 3.7 - 10.4 12/18 [place] [facility] CHEM PANEL eGFR 123 12/17 [facility] Comment: The Medical eGFR is Center calculated using the CKD-EPI formula. In most young, healthy individuals the eGFR will be >90 mL/min/1.73m2 . The eGFR declines with age. An eGFR of 60-89 may be normal in some populations, particularly the elderly, for whom the CKD-EPI formula has not been extensively validated. Use of the eGFR is not recommended in the following populations:< br/>
Yeimi viduals with unstable creatinine concentration s, including patients and those with serious co-morbid conditions.<b r/>
Patie nts with extremes in muscle mass or diet.

The data above are obtained from the National Kidney Disease Education Program (NKDEP) which additionally recommends that when the eGFR is used in patients with extremes of body mass index for purposes of drug dosing, the eGFR should be multiplied by the estimated BMI. CHEM PANEL Glucose Lvl 121 70 - 99 12/17 [facility] CHEM PANEL Creatinine 0.59 0.50 - 12/17 [facility] Lvl 1.40 [facility] CHEM PANEL BUN 5 7 - 22 12/17 [facility] CHEM PANEL Sodium Lvl 141 135 - 145 12/17 [facility] CHEM PANEL Chloride Lvl 109 95 - 109 12/17 [facility] CHEM PANEL Potassium Lvl 3.9 3.5 - 5.1 12/17 [facility] CHEM PANEL AGAP 13.9 10.0 - 12/17 [place] 20.0 [facility] CHEM PANEL CO2 22 24 - 32 12/17 [facility] CHEM PANEL Calcium Lvl 7.7 8.5 - 10.5 12/17 [facility] CHEM PANEL Phosphorus 2.8 2.5 - 4.5 12/17 [facility] CHEM PANEL Magnesium Lvl 1.5 1.8 - 2.4 12/17 [facility] HEMATOLOGY Hgb 7.3 12.0 - 12/17 [place] 16.0 [facility] HEMATOLOGY RBC 3.09 4.20 - 12/17 [place] 5.40 [facility] HEMATOLOGY WBC 6.9 3.7 - 10.4 12/17 [facility] HEMATOLOGY MCH 23.5 27.0 - 12/17 [place] 31.0 [facility] HEMATOLOGY MCV 78.1 80.0 - 12/17 [place] 98.0 [facility] HEMATOLOGY MCHC 30.1 32.0 - 12/17 [place] 36.0 [facility] HEMATOLOGY Hct 24.2 36.0 - 12/17 [place] 48.0 [facility] HEMATOLOGY RDW 17.4 11.5 - 12/17 [place] 14.5 /2016 [facility] HEMATOLOGY MPV 9.2 7.4 - 10.4 12/17 [facility] HEMATOLOGY Platelet 98 133 - 450 12/17 [facility] HEMATOLOGY Lymphocytes # 0.2 1.0 - 5.5 12/17 [place] [facility] HEMATOLOGY Segs-Bands # 6.5 1.5 - 8.1 12/17 Eladio as [facility] HEMATOLOGY Stomatocyte Moderate None Seen 12/17 Eladio as *ABN* [facility] (12/18/15 3:10 PM) [place] HEMATOLOGY Monocytes # 0.1 0.0 - 0.8 12/[facility] HEMATOLOGY Microcyte 1+ None Seen 12/17 [place] *ABN* [facility] (12/18/15 3:10 PM) [place] HEMATOLOGY Hypochrom 1+ None Seen 12/17 [facility] (12/18/15 3:10 PM) [facility] HEMATOLOGY Basophils 0.2 0.0 - 1.0 12/17 [facility] HEMATOLOGY Eosinophils 0.1 0.0 - 4.0 12/17 [facility] HEMATOLOGY Monocytes 1.6 2.0 - 12.0 12/17 [facility] HEMATOLOGY Lymphocytes 2.6 20.0 - 12/17 40.0 [facility] HEMATOLOGY Segs 95.5 45.0 - 12/17 [facility] 75.0 [facility] URINE CHEM U Preg Negative Negative 12/17 [facility] (12/18/15 4:51 AM) [facility] ANEMIA Ferritin Lvl 8 5 - 204 12/17 [facility] ANEMIA UIBC 272 110 - 370 12/17 [facility] ANEMIA % Satur Fe 5 12 - 57 12/17 [facility] ANEMIA Iron 13 30 - 160 12/17 [facility] ANEMIA TIBC 285 228 - 428 12/17 [facility] CHEM PANEL Phosphorus 3.0 2.5 - 4.5 12/17 [facility] PARATHYROID Ca Norm WB 0.99 1.05 - 12/17 [place] PROFILE 1. [facility] PARATHYROID Ca Ion WB 1.04 1.05 - 12/17 [facility] PROFILE 1. [facility] PARATHYROID PTH Intact 38.6 11.1 - 12/17 [place] PROFILE 79.5 [facility] HEMATOLOGY Sed Rate 2 0 - 20 12/17 [facility] IMMUNOLOGY C-REACTIVE <2.9 <=2.9 12/17 [facility] PROTEIN (12/17/15 10:49 PM) [facility] BLOOD BANK RBC product Product available 12/17 [facility] RESULTS (12/17/15 10:37 PM) [facility] HEMATOLOGY Plt Morph Normal 12/17 [place] (12/17/15 10:10 PM) [facility] HEMATOLOGY Eosinophils 1.8 0.0 - 4.0 12/17 [place] [facility] HEMATOLOGY Monocytes 9.0 2.0 - 12.0 12/17 [facility] HEMATOLOGY Lymphocytes 36.6 20.0 - 12/17 [place] 40.0 [facility] HEMATOLOGY Segs 51.9 45.0 - 12/17 [place] 75.0 [facility] HEMATOLOGY Monocytes # 0.3 0.0 - 0.8 12/17 [place] [facility] HEMATOLOGY Lymphocytes # 1.4 1.0 - 5.5 12/17 [place] [facility] HEMATOLOGY Segs-Bands # 2.0 1.5 - 8.1 12/17 as /2015 [facility] HEMATOLOGY Basophils 0.7 0.0 - 1.0 12/17 [facility] HEMATOLOGY Eosinophils # 0.1 0.0 - 0.5 12/17 [place] [facility] HEMATOLOGY Hypochrom 1+ None Seen 12/17 [place] (12/17/15 10:10 PM) [facility] HEMATOLOGY Microcyte 1+ None Seen 12/17 [place] *ABN* /2015 Medical (12/17/15 10:10 PM) Center HEMATOLOGY Anisocyte 1+ None Seen 12/17 [place] *ABN* /2015 Medical (12/17/15 10:10 PM) [place] BLOOD BANK ABO/Rh A POS 12/17 [facility] RESULTS /2015 [facility] BLOOD BANK Antibody Scrn Negative 12/17 [place] RESULTS (12/17/15 10:03 PM) [facility] HEMATOLOGY RDW 19.5 11.5 - 06/30 [place] 14.5 [facility] HEMATOLOGY MCHC 32.6 32.0 - 03/16 [place] 36.0 /2015 [facility] HEMATOLOGY MCV 91.9 80.0 - 06/30 [place] 98.0 [facility] HEMATOLOGY MCH 30.0 27.0 - 06/30 [place] 31.0 [facility] HEMATOLOGY MPV 9.2 7.4 - 10.4 06/30 [facility] Center HEMATOLOGY Platelet 116 133 - 450 06/30 [facility] HEMATOLOGY RBC 2.90 4.20 - 06/30 [place] 5.40 /2015 [facility] HEMATOLOGY Hct 26.6 36.0 - 06/30 [place] 48.0 [facility] Center HEMATOLOGY Hgb 8.7 12.0 - 06/30 [place] 16.0 Medical [place] HEMATOLOGY WBC 4.1 3.7 - 10.4 06/30 [facility] HEMATOLOGY Monocytes # 0.5 0.0 - 0.8 06/30 s [facility] HEMATOLOGY Monocytes 13.0 2.0 - 12.0 06/30 [facility] HEMATOLOGY Lymphocytes # 0.7 1.0 - 5.5 06/30 [facility] HEMATOLOGY Segs-Bands # 2.7 1.5 - 8.1 06/30 [facility] HEMATOLOGY Basophils 0.0 0.0 - 1.0 06/30 [facility] HEMATOLOGY Eosinophils 4.0 0.0 - 4.0 06/30 s [facility] HEMATOLOGY RBC Morph Normal 06/30 (07/01/15 4:10 AM) /2015 [facility] HEMATOLOGY Segs 66.0 45.0 - 06/30 [place] 75.0 [facility] HEMATOLOGY Plt Morph Normal 06/30 (07/01/15 4:10 AM) /2015 [facility] HEMATOLOGY Lymphocytes 17.0 20.0 - 06/30 [place] 40.0 2016 [facility] HEMATOLOGY Eosinophils # 0.2 0.0 - 0.5 06/30 [place] [facility] HEMATOLOGY RDW 19.5 11.5 - 06/29 [place] 14.5 /2015 [facility] HEMATOLOGY MCV 91.8 80.0 - 06/29 [place] 98.0 2016 [facility] HEMATOLOGY Hct 24.8 36.0 - 06/29 [place] 48.0 /2016 [facility] HEMATOLOGY MCHC 32.6 32.0 - 06/29 [place] 36.0 [facility] HEMATOLOGY MCH 29.9 27.0 - 06/29 [place] 31.0 [facility] HEMATOLOGY MPV 8.7 7.4 - 10.4 06/29 [facility] HEMATOLOGY WBC 6.0 3.7 - 10.4 06/29 [facility] HEMATOLOGY Hgb 8.1 12.0 - 03 [place] 16.0 2016 [facility] HEMATOLOGY RBC 2.71 4.20 - 03 [place] 5.40 [facility] HEMATOLOGY Platelet 97 133 - 450 06/29 [facility] HEMATOLOGY Eosinophils # 0.2 0.0 - 0.5 06/29 [facility] HEMATOLOGY Monocytes # 0.4 0.0 - 0.8 06/29 s [facility] Center HEMATOLOGY Lymphocytes # 0.4 1.0 - 5.5 06/29 [facility] HEMATOLOGY Segs-Bands # 5.0 1.5 - 8.1 06/29 [facility] HEMATOLOGY Eosinophils 2.5 0.0 - 4.0 06/29 s [facility] Center HEMATOLOGY Monocytes 6.6 2.0 - 12.0 06/29 [facility] Center HEMATOLOGY Segs 84.1 45.0 - 06/29 [place] 75.0 [facility] HEMATOLOGY Lymphocytes 6.6 20.0 - 06/29 [place] 40.0 [facility] HEMATOLOGY Basophils 0.2 0.0 - 1.0 06/29 [facility] Center HEMATOLOGY Platelet 109 133 - 450 06/29 [facility] Center HEMATOLOGY MPV 8.8 7.4 - 10.4 06/29 [facility] HEMATOLOGY MCHC 32.6 32.0 - 03 [place] 36.0 [facility] HEMATOLOGY RDW 19.6 11.5 - 06/29 [place] 14.5 [facility] HEMATOLOGY Hct 25.1 36.0 - 06/29 [place] 48.0 [facility] HEMATOLOGY MCV 91.8 80.0 - 06/29 [place] 98.0 /2016 [facility] HEMATOLOGY MCH 29.9 27.0 - 03 [place] 31.0 2016 [facility] HEMATOLOGY RBC 2.73 4.20 - 06/29 [place] 5.40 /2015 [facility] HEMATOLOGY WBC 6.4 3.7 - 10.4 06/29 /2015 [facility] HEMATOLOGY Hgb 8.2 12.0 - 06/29 [place] 16.0 [facility] HEMATOLOGY Plt Morph Normal 06/29 [place] (06/30/15 12:31 PM) /2015 [facility] HEMATOLOGY RBC Morph Normal 06/29 [facility] (06/30/15 12:31 PM) /2015 [facility] HEMATOLOGY Segs 88.7 45.0 - 06/29 [place] 75.0 [facility] HEMATOLOGY Segs-Bands # 5.7 1.5 - 8.1 06/29 [place] [facility] HEMATOLOGY Monocytes 4.5 2.0 - 12.0 06/29 [facility] HEMATOLOGY Lymphocytes 5.6 20.0 - 06/29 [place] 40.0 [facility] HEMATOLOGY Basophils 0.4 0.0 - 1.0 06/29 [facility] HEMATOLOGY Eosinophils 0.8 0.0 - 4.0 06/29 [place] [facility] HEMATOLOGY Lymphocytes # 0.4 1.0 - 5.5 06/29 [place] [facility] HEMATOLOGY Eosinophils # 0.1 0.0 - 0.5 06/29 [place] [facility] HEMATOLOGY Monocytes # 0.3 0.0 - 0.8 06/29 [place] [facility] HEMATOLOGY Hypochrom 1+ None Seen 06/29 (06/30/15 12:31 PM) /2015 [facility] HEMATOLOGY Polychrom Moderate None Seen 06/29 [place] *ABN* /2015 Medical (06/30/15 12:31 PM) [facility] r BLOOD BANK RBC product Product available 06/28 [facility] RESULTS (06/29/15 6:16 PM) /2015 [facility] BLOOD BANK Platelet Product available 06/28 [facility] RESULTS product (06/29/15 3:00 PM) /2015 [facility] HEMATOLOGY Plt Morph Normal 06/28 [place] (06/29/15 1:54 PM) /2015 [facility] HEMATOLOGY Hypochrom 1+ None Seen 06/28 [place] (06/29/15 1:54 PM) /2015 [facility] HEMATOLOGY Anisocyte 1+ None Seen 06/28 [facility] *ABN* /2015 [facility] (06/29/15 1:54 PM) [place] URINE CHEM U Preg Negative Negative 06/28 [facility] (06/29/15 1:54 PM) [facility] [place] BLOOD BANK RBC product Product available 06/28 [facility] RESULTS (06/29/15 12:21 PM) [facility] [place] BLOOD BANK RBC product Product available 06/28 [facility] RESULTS (06/29/15 12:11 PM) [facility] CHEM PANEL Alk Phos 89 39 - 136 06/28 [facility] CHEM PANEL AST 14 0 - 37 06/28 [facility] CHEM PANEL ALT 14 0 - 65 06/28 [facility] CHEM PANEL Total Protein 7.0 6.4 - 8.4 06/28 [facility] CHEM PANEL Albumin Lvl 3.3 3.5 - 5.0 06/28 [facility] CHEM PANEL Bili Indirect 0.0 0.0 - 1.0 06/28 [facility] CHEM PANEL A/G Ratio 0.9 0.7 - 1.6 06/28 [facility] CHEM PANEL Bili Direct 0.1 0.0 - 0.3 06/28 [facility] CHEM PANEL Globulin 3.7 2.0 - 4.0 06/28 [facility] CHEM PANEL Bili Total 0.1 0.2 - 1.3 06/28 [facility] CHEM PANEL eGFR 131 06/28 Result Comment: [facility] eGFR is Center calculated using the CKD-EPI formula. In most young, healthy individuals the eGFR will be >90 mL/min/1.73m2 . The eGFR declines with age. An eGFR of 60-89 may be normal in some populations, particularly the elderly, for whom the CKD-EPI formula has not been extensively validated. Use of the eGFR is not recommended in the following populations:< br/>
Yeimi viduals with unstable creatinine concentration s, including patients and those with serious co-morbid conditions.<b r/>
Patie nts with extremes in muscle mass or diet.

The data above are obtained from the National Kidney Disease Education Program (NKDEP) which additionally recommends that when the eGFR is used in patients with extremes of body mass index for purposes of drug dosing, the eGFR should be multiplied by the estimated BMI. CHEM PANEL Creatinine 0.48 0.50 - 06/28 [place] Lvl 1.40 /2015 [facility] CHEM PANEL Sodium Lvl 138 135 - 145 06/28 [facility] CHEM PANEL Calcium Lvl 8.4 8.5 - 10.5 06/28 [place] /2015 [facility] CHEM PANEL Potassium Lvl 4.0 3.5 - 5.1 06/28 [place] [facility] CHEM PANEL Chloride Lvl 106 95 - 109 06/[facility] CHEM PANEL CO2 24 24 - 32 06/28 [facility] CHEM PANEL Glucose Lvl 118 70 - 99 06/28 [facility] CHEM PANEL BUN 7 7 - 22 06/28 [facility] CHEM PANEL AGAP 12.0 10.0 - 06/28 [facility] 20.0 /2015 [facility] HEMATOLOGY PTT 25.6 22.9 - 06/28 [facility] 35.8 /2015 [facility] HEMATOLOGY PT 13.3 12.0 - 06/28 [facility] 14.7 /2015 [facility] HEMATOLOGY INR 0.98 0.85 - 06/28 [facility] 1.17 /2015 [facility] BLOOD BANK AB Int Non-specif 06/28 [facility] RESULTS ic IgG [facility] BLOOD BANK ABO/Rh A POS 06/28 [facility] RESULTS /2015 [facility] BLOOD BANK Antibody Scrn Positive 1 06/28 [place] RESULTS (06/29/15 7:24 AM) /2015 Comment: Medic al 06/29/2015 Center 10:00 [id number]
"Significant Findings of Positive Antibody Screen_ called to Erma De Santiago_ at 0956_ by tme_. Read Back OK" BLOOD BANK Path AB Blood Bank 06/28 [facility] RESULTS Physician /2015 [facility] [place] Current work up shows the presence of a weakly reactive nonspecifi c IgG antibody. This antibody does not demonstrat e specificit y against any of the major blood group antigens and likely has limited clinical significan ce. Should RBC transfusio n be required, crossmatch compatible units will be issued. The patients electronic medical record has been reviewed for relevant informatio n.29 y.o. F w/ Glanzmann Thrombasth enia presenting after a ruptured ovarian cyst and symptomati c anemia currently receiving RBC transfusio n. CPT: 16453 HEMATOLOGY Segs-Bands # 2.9 1.5 - 8.1 02 [facility] HEMATOLOGY Lymphocytes # 1.2 1.0 - 5.5 05/26 [facility] HEMATOLOGY Monocytes # 0.5 0.0 - 0.8 05/26 [facility] HEMATOLOGY Eosinophils # 0.4 0.0 - 0.5 05/26 [facility] HEMATOLOGY Segs 57.5 45.0 - 02 [place] 75.0 /2015 [facility] HEMATOLOGY Lymphocytes 24.1 20.0 - 05/26 [place] 40.0 [facility] HEMATOLOGY Basophils 0.7 0.0 - 1.0 05/26 [facility] HEMATOLOGY Monocytes 9.3 2.0 - 12.0 05/26 [facility] HEMATOLOGY Eosinophils 8.4 0.0 - 4.0 05/26 [facility] HEMATOLOGY RBC 2.88 4.20 - 05/26 [place] 5.40 /2015 [facility] HEMATOLOGY WBC 5.1 3.7 - 10.4 05/26 [facility] HEMATOLOGY Hct 25.1 36.0 - 02 48.0 [facility] HEMATOLOGY Hgb 7.8 12.0 - 05/26 [place] 16.0 [facility] HEMATOLOGY MCV 87.3 80.0 - 05/26 98.0 [facility] HEMATOLOGY MCHC 31.2 32.0 - 02 [place] 36.0 [facility] HEMATOLOGY MCH 27.3 27.0 - 02 [place] 31.0 [facility] HEMATOLOGY MPV 8.8 7.4 - 10.4 05/26 [facility] HEMATOLOGY Platelet 179 133 - 450 05/26 [facility] HEMATOLOGY RDW 19.1 11.5 - 02 [place] 14.5 [facility] HEMATOLOGY Basophils 0.3 0.0 - 1.0 05/25 [facility] HEMATOLOGY Eosinophils 6.7 0.0 - 4.0 05/25 [facility] HEMATOLOGY Monocytes 8.8 2.0 - 12.0 05/25 [facility] HEMATOLOGY Lymphocytes # 1.2 1.0 - 5.5 [place]2015 [facility] HEMATOLOGY Eosinophils # 0.4 0.0 - 0.5 02 [place] [facility] HEMATOLOGY Segs-Bands # 3.3 1.5 - 8.1 02 [place] /2015 [facility] HEMATOLOGY Monocytes # 0.5 0.0 - 0.8 05/25 [place]2015 [facility] HEMATOLOGY Lymphocytes 21.7 20.0 - 05/25 [place] 40.0 /2015 [facility] HEMATOLOGY Segs 62.5 45.0 - 0208 [place] 75.0 /2015 [facility] HEMATOLOGY RDW 18.8 11.5 - 05/25 [place] 14. [facility] Center HEMATOLOGY MCV 85.8 80.0 - 05/25 [place] 98.0 /2015 Medical [place] HEMATOLOGY MCHC 31.4 32.0 - 05/25 [place] 36.0 [facility] HEMATOLOGY RBC 2.62 4.20 - 05/25 [place] 5.40 [facility] HEMATOLOGY WBC 5.3 3.7 - 10.4 05/25 [facility] HEMATOLOGY Hgb 7.1 12.0 - 05/25 [place] 16.0 [facility] HEMATOLOGY Platelet 158 133 - 450 02 [facility] Center HEMATOLOGY Hct 22.5 36.0 - 05/25 [place] 48.0 /2015 [facility] HEMATOLOGY MCH 27.0 27.0 - 05/25 [place] 31.0 [facility] HEMATOLOGY MPV 8.7 7.4 - 10.4 05/25 [facility] HEMATOLOGY Platelet 135 133 - 450 02/ [facility] HEMATOLOGY MPV 9.0 7.4 - 10.4 02/ [facility] HEMATOLOGY RDW 18.8 11.5 - 05/24 [place] 14.5 2016 [facility] HEMATOLOGY MCHC 31.7 32.0 - 02 [place] 36.0 2016 [facility] HEMATOLOGY MCH 26.8 27.0 - 05/24 [place] 31.0 /2016 [facility] HEMATOLOGY RBC 2.67 4.20 - 05/24 [place] 5.40 [facility] HEMATOLOGY Hgb 7.2 12.0 - 05/24 [place] 16.0 /2016 [facility] HEMATOLOGY Hct 22.6 36.0 - 02 [place] 48.0 [facility] HEMATOLOGY MCV 84.4 80.0 - 05/24 [place] 98.0 [facility] HEMATOLOGY WBC 4.8 3.7 - 10.4 05/24 [facility] HEMATOLOGY Lymphocytes # 1.1 1.0 - 5.5 05/24 [facility] HEMATOLOGY Monocytes # 0.5 0.0 - 0.8 05/24 [facility] HEMATOLOGY Segs-Bands # 2.9 1.5 - 8.1 05/24 [facility] HEMATOLOGY Eosinophils # 0.3 0.0 - 0.5 05/24 [facility] HEMATOLOGY Eosinophils 6.4 0.0 - 4.0 05/24 s [facility] HEMATOLOGY Monocytes 10.0 2.0 - 12.0 05/24 [facility] HEMATOLOGY Basophils 0.4 0.0 - 1.0 05/24 [facility] HEMATOLOGY Lymphocytes 23.0 20.0 - 05/24 [place] 40.0 [facility] HEMATOLOGY Segs 60.2 45.0 - 05/24 [place] 75.0 [facility] ANEMIA Ferritin Lvl 145 5 - 204 05/22 [facility] ANEMIA % [place] Fe 17 12 - 57 05/22 [facility] ANEMIA UIBC 243 110 - 370 05/22 [facility] ANEMIA TIBC 292 228 - 428 05/22 [facility] ANEMIA Iron 49 30 - 160 05/22 [facility] STUDY [facility] MOLECULAR HCV RNA Log10 6.2 05/22 [facility] DIAGNOSTIC /2015 [facility] MOLECULAR HCV RNA [id number] 05/22 [facility] DIAGNOSTIC [facility]Load /2015 [facility] BLOOD BANK Platelet Product available 05/22 [place] RESULTS product (05/22/15 11:04 AM) /2015 [facility] BLOOD BANK RBC product Product available 05/22 [facility] RESULTS (05/22/15 6:51 AM) /2015 [facility] BLOOD BANK Platelet Product available 05/21 [facility] RESULTS product (05/21/15 11:30 AM) /2015 [facility] BLOOD BANK Platelet Product available 05/21 [facility] RESULTS product (05/21/15 10:00 AM) /2015 [facility] BLOOD BANK Antibody Scrn Negative 05/21 [place] RESULTS (05/21/15 4:55 AM) [facility] BLOOD BANK ABO/Rh A POS 05/21 [facility] RESULTS /2015 [facility] ELECTROLYTE AGAP 10.8 10.0 - 05/21 [place] S 20.0 /2015 [facility] ELECTROLYTE CO2 23 24 - 32 05/21 [facility] S /2015 [facility] ELECTROLYTE Chloride Lvl 110 95 - 109 05/21 [place] [facility] ELECTROLYTE Creatinine 0.46 0.50 - 05/21 [facility] S Lvl 1.40 /2015 [facility] ELECTROLYTE Sodium Lvl 140 135 - 145 05/21 [place] [facility] ELECTROLYTE BUN 10 7 - 22 05/21 [facility] S [facility] ELECTROLYTE eGFR 133 05/21 Result [facility] Comment: The Medical eGFR is Center calculated using the CKD-EPI formula. In most young, healthy individuals the eGFR will be >90 mL/min/1.73m2 . The eGFR declines with age. An eGFR of 60-89 may be normal in some populations, particularly the elderly, for whom the CKD-EPI formula has not been extensively validated. Use of the eGFR is not recommended in the following populations:< br/>
Yeimi viduals with unstable creatinine concentration s, including patients and those with serious co-morbid conditions.<b r/>
Patie nts with extremes in muscle mass or diet.

The data above are obtained from the National Kidney Disease Education Program (NKDEP) which additionally recommends that when the eGFR is used in patients with extremes of body mass index for purposes of drug dosing, the eGFR should be multiplied by the estimated BMI. ELECTROLYTE Calcium Lvl 8.2 8.5 - 10.5 05/21 [place] [facility] ELECTROLYTE Potassium Lvl 3.8 3.5 - 5.1 05/21 [place] [facility] ELECTROLYTE Glucose Lvl 78 70 - 99 05/21 [facility] S /2015 [facility] HEMATOLOGY PT 14.1 12.0 - 05/21 [place] 14.7 /2015 [facility] HEMATOLOGY PTT 28.2 22.9 - 02 [place] 35.8 /2015 [facility] HEMATOLOGY INR 1.06 0.85 - 05/21 [facility] [place] 1.17 [facility] URINE CHEM U Preg Negative Negative 05/21 [facility] (05/21/15 4:55 AM) /2015 [facility] HEMATOLOGY INR 1.00 0.85 - 05/20 [facility] 1.17 /2015 [facility] HEMATOLOGY PTT 24.1 22.9 - 05/20 [place] 35.8 /2015 [facility] HEMATOLOGY PT 13.5 12.0 - 05/20 [place] 14.7 /2015 [facility] HEMATOLOGY Hgb 8.3 12.0 - 05/10 [place] 16.0 /2015 [facility] HEMATOLOGY Hct 26.9 36.0 - 05/10 [facility] 48.0 /2015 [facility] BLOOD BANK RBC product Product available 05/09 [facility] RESULTS (05/09/15 4:47 PM) /2015 [facility] HEMATOLOGY Hct 21.1 36.0 - 05/09 [facility] 48.0 /2015 [facility] HEMATOLOGY Hgb 6.6 12.0 - 05/09 Result [facility] 16. Comment: [facility] Result(s) called to Hailey Bauer RN_ at 05/09/2015 13:45_ by Blessing_. Read back OK. HEMATOLOGY Estimated % 0.0 0.0 - 7.5 05/09 [place] [facility] HEMATOLOGY Max Amp 36 52 - 71 05/09 [facility] HEMATOLOGY G-value 2.8 5.0 - 11.6 05/09 [facility] HEMATOLOGY Angle 63 64 - 80 05/09 [facility] HEMATOLOGY R-time 0.6 0.4 - 0.7 05/09 [facility] HEMATOLOGY K-time 4.8 0.6 - 2.3 05/09 [facility] HEMATOLOGY ACT (TEG) 105 86 - 118 05/09 [facility] HEMATOLOGY Split Point 0.3 05/09 [facility] HEMATOLOGY Rapid TEG Citrated Whole Blood 05/09 [facility] Sample Type (05/09/15 7:31 AM) /2015 [facility] URINE CHEM U Preg Negative Negative 05/09 [facility] (05/09/15 7:31 AM) /2015 [facility] BLOOD BANK ABO/Rh A POS 05/09 [place] RESULTS /2015 [facility] BLOOD BANK Antibody Scrn Negative 05/09 [facility] RESULTS (05/09/15 6:39 AM) /2015 [facility] HEMATOLOGY RBC 2.68 4.20 - 05/09 [place] 5.40 /2015 [facility] HEMATOLOGY Hgb 6.9 12.0 - 05/09 Result [place] 16. Comment: [facility] Result(s) called to Sherry Melisa_ at 05/09/2015 07:57_ by Blessing_. Read back OK. HEMATOLOGY WBC 6.7 3.7 - 10.4 05/09 [facility] HEMATOLOGY Platelet 101 133 - 450 05/09 [facility] HEMATOLOGY MPV 9.0 7.4 - 10.4 05/09 [facility] HEMATOLOGY MCV 82.2 80.0 - 05/09 [place] 98.0 [facility] HEMATOLOGY RDW 19.3 11.5 - 05/09 [place] 14.5 [facility] HEMATOLOGY Hct 22.0 36.0 - 05/09 [place] 48.0 [facility] HEMATOLOGY MCH 25.6 27.0 - 05/09 [place] 31.0 [facility] HEMATOLOGY MCHC 31.2 32.0 - 05/09 [place] 36.0 [facility] HEMATOLOGY Segs-Bands # 6.1 1.5 - 8.1 05/09 [facility] HEMATOLOGY Eosinophils # 0.1 0.0 - 0.5 05/09 [place] [facility] HEMATOLOGY Lymphocytes # 0.5 1.0 - 5.5 05/09 [place] [facility] HEMATOLOGY Monocytes # 0.1 0.0 - 0.8 05/09 [place] [facility] HEMATOLOGY Segs 89.5 45.0 - 05/09 [place] 75.0 2016 [facility] HEMATOLOGY Eosinophils 0.8 0.0 - 4.0 05/09 [place] [facility] HEMATOLOGY Basophils 0.7 0.0 - 1.0 05/09 [facility] HEMATOLOGY Lymphocytes 7.0 20.0 - 05/09 [place] 40.0 [facility] HEMATOLOGY Monocytes 2.0 2.0 - 12.0 05/09 [facility] HEMATOLOGY Hypochrom 1+ None Seen 05/09 [facility] (05/09/15 6:39 AM) /2015 [facility] HEMATOLOGY Plt Morph Normal 05/09 [facility] (05/09/15 6:39 AM) [facility] HEMATOLOGY WBC 6.6 3.7 - 10.4 04/17 [facility] HEMATOLOGY Hgb 8.2 12.0 - 04/17 16.0 [facility] HEMATOLOGY Hct 26.8 36.0 - 04/17 48.0 [facility] HEMATOLOGY RBC 3.12 4.20 - 04/17 5.40 /2015 [facility] HEMATOLOGY RDW 18.4 11.5 - 04/17 14.5 [facility] HEMATOLOGY Platelet 108 133 - 450 04/17 [facility] HEMATOLOGY MPV 9.4 7.4 - 10.4 04/17 [facility] HEMATOLOGY MCV 85.8 80.0 - 04/17 98.0 [facility] HEMATOLOGY MCH 26.3 27.0 - 04/17 31.0 [facility] HEMATOLOGY MCHC 30.7 32.0 - 04/17 36.0 [facility] HEMATOLOGY Eosinophils # 0.1 0.0 - 0.5 04/17 [facility] HEMATOLOGY Basophils 0.6 0.0 - 1.0 04/17 [facility] HEMATOLOGY Eosinophils 2.0 0.0 - 4.0 04/17 [facility] HEMATOLOGY Monocytes 9.1 2.0 - 12.0 04/17 [facility] HEMATOLOGY Lymphocytes 18.8 20.0 - 04/17 40.0 [facility] HEMATOLOGY Segs 69.5 45.0 - 04/17 75.0 [facility] HEMATOLOGY Segs-Bands # 4.6 1.5 - 8.1 04/17 [facility] HEMATOLOGY Lymphocytes # 1.3 1.0 - 5.5 04/17 [facility] HEMATOLOGY Monocytes # 0.6 0.0 - 0.8 04/17 [facility] CHEM PANEL eGFR 123 04/16 [facility] Comment: The Medical eGFR is Center calculated using the CKD-EPI formula. In most young, healthy individuals the eGFR will be >90 mL/min/1.73m2 . The eGFR declines with age. An eGFR of 60-89 may be normal in some populations, particularly the elderly, for whom the CKD-EPI formula has not been extensively validated. Use of the eGFR is not recommended in the following populations:< br/>
Yeimi viduals with unstable creatinine concentration s, including patients and those with serious co-morbid conditions.<b r/>
Patie nts with extremes in muscle mass or diet.

The data above are obtained from the National Kidney Disease Education Program (NKDEP) which additionally recommends that when the eGFR is used in patients with extremes of body mass index for purposes of drug dosing, the eGFR should be multiplied by the estimated BMI. CHEM PANEL Creatinine 0.59 0.50 - 04/16 [place] Lvl 1.40 [facility] CHEM PANEL BUN 5 7 - 22 04/16 2014 [facility] CHEM PANEL Glucose Lvl 107 70 - 99 04/16 2014 [facility] CHEM PANEL Sodium Lvl 140 135 - 145 04/16 2014 [facility] CHEM PANEL Potassium Lvl 3.7 3.5 - 5.1 04/16 [facility] CHEM PANEL AGAP 11.7 10.0 - 04/16 [place] 20.0 [facility] CHEM PANEL Chloride Lvl 108 95 - 109 04/16 2014 [facility] CHEM PANEL CO2 24 24 - 32 04/16 2014 [facility] CHEM PANEL Calcium Lvl 7.8 8.5 - 10.5 04/16 [facility] HEMATOLOGY Eosinophils # 0.1 0.0 - 0.5 04/16 [facility] HEMATOLOGY Monocytes # 0.8 0.0 - 0.8 04/16 [facility] HEMATOLOGY Lymphocytes 19.0 20.0 - 04/16 [place] 40.0 [facility] HEMATOLOGY Segs 64.6 45.0 - 04/16 [place] 75.0 [facility] HEMATOLOGY Basophils 0.2 0.0 - 1.0 04/16 2014 [facility] HEMATOLOGY Eosinophils 2.0 0.0 - 4.0 04/16 2014 [facility] HEMATOLOGY Monocytes 14.2 2.0 - 12.0 04/16 2014 [facility] HEMATOLOGY Lymphocytes # 1.1 1.0 - 5.5 04/16 [facility] HEMATOLOGY Segs-Bands # 3.6 1.5 - 8.1 04/16 [place] /2014 [facility] HEMATOLOGY Hct 25.2 36.0 - 04/16 [place] 48.0 /2014 [facility] HEMATOLOGY RDW 18.2 11.5 - 04/16 [place] 14.5 /2014 [facility] HEMATOLOGY MCHC 32.1 32.0 - 04/16 [place] 36.0 /2014 [facility] HEMATOLOGY MCH 27.6 27.0 - 04/16 [place] 31.0 /2014 [facility] HEMATOLOGY MCV 86.0 80.0 - 04/16 [place] 98.0 /2015 [facility] HEMATOLOGY Platelet 91 133 - 450 04/16 [facility] HEMATOLOGY MPV 9.3 7.4 - 10.4 04/16 [facility] HEMATOLOGY Hgb 8.1 12.0 - 04/16 [place] 16.0 [facility] HEMATOLOGY RBC 2.93 4.20 - 04/16 [place] 5.40 /2014 [facility] HEMATOLOGY WBC 5.5 3.7 - 10.4 04/16 [facility] HEMATOLOGY Hct 22.7 36.0 - 04/15 [place] 48.0 /2014 [facility] HEMATOLOGY Hgb 6.7 12.0 - 04/15 Result [facility] 16. Comment: [facility] Critical Center Result(s) called to INEZ GARCIA 12:08 at _ by_SFS. Read back OK. BLOOD BANK RBC product Product available 04/15 [facility] RESULTS (04/15/15 6:43 AM) /2014 [facility] BLOOD BANK Platelet Product available 04/15 [facility] RESULTS product (04/15/15 6:30 AM) /2014 [facility] ELECTROLYTE AGAP 11.8 10.0 - 04/15 [place] S 20.0 [facility] ELECTROLYTE eGFR 133 04/15 Result [facility] S Comment: The Medical eGFR is Center calculated using the CKD-EPI formula. In most young, healthy individuals the eGFR will be >90 mL/min/1.73m2 . The eGFR declines with age. An eGFR of 60-89 may be normal in some populations, particularly the elderly, for whom the CKD-EPI formula has not been extensively validated. Use of the eGFR is not recommended in the following populations:< br/>
Yeimi viduals with unstable creatinine concentration s, including patients and those with serious co-morbid conditions.<b r/>
Patie nts with extremes in muscle mass or diet.

The data above are obtained from the National Kidney Disease Education Program (NKDEP) which additionally recommends that when the eGFR is used in patients with extremes of body mass index for purposes of drug dosing, the eGFR should be multiplied by the estimated BMI. ELECTROLYTE Calcium Lvl 8.1 8.5 - 10.5 04/15 [place]2014 [facility] ELECTROLYTE CO2 23 24 - 32 04/15 [facility] /2014 [facility] ELECTROLYTE Chloride Lvl 110 95 - 109 04/15 [facility] as /2014 [facility] ELECTROLYTE Glucose Lvl 111 70 - 99 04/15 [facility] 2014 [facility] ELECTROLYTE BUN 4 7 - 22 04/15 [facility] ELECTROLYTE Potassium Lvl 3.8 3.5 - 5.1 04/15 [place] /2014 [facility] ELECTROLYTE Sodium Lvl 141 135 - 145 04/15 [facility] /2014 [facility] ELECTROLYTE Creatinine 0.47 0.50 - 04/15 [facility] S Lvl 1.40 [facility] HEMATOLOGY Platelet 108 133 - 450 04/15 2014 [facility] HEMATOLOGY MPV 9.0 7.4 - 10.4 04/15 [facility] HEMATOLOGY RDW 18.5 11.5 - 04/15 [place] 14.5 [facility] HEMATOLOGY MCHC 29.5 32.0 - 04/15 [place] 36.0 /2014 [facility] HEMATOLOGY MCH 24.3 27.0 - 04/15 [place] 31.0 [facility] HEMATOLOGY MCV 82.2 80.0 - 04/15 [place] 98.0 /2014 [facility] HEMATOLOGY RBC 2.82 4.20 - 04/15 [place] 5.40 /2014 [facility] HEMATOLOGY WBC 5.7 3.7 - 10.4 04/15 2014 [facility] HEMATOLOGY Segs 79.3 45.0 - 04/15 [place] 75.0 /2014 [facility] HEMATOLOGY Eosinophils 1.1 0.0 - 4.0 04/15 [facility] HEMATOLOGY Monocytes 8.2 2.0 - 12.0 04/[address] HEMATOLOGY Lymphocytes 11.1 20.0 - 1230 [place] 40.0 /2014 [facility] HEMATOLOGY Basophils 0.3 0.0 - 1.0 04/15 [place] /2014 [facility] HEMATOLOGY Lymphocytes # 0.6 1.0 - 5.5 04/15 [place]2014 [facility] HEMATOLOGY Segs-Bands # 4.5 1.5 - 8.1 04/15 [place] /2014 [facility] HEMATOLOGY Eosinophils # 0.1 0.0 - 0.5 04/15 [place] [facility] HEMATOLOGY Monocytes # 0.5 0.0 - 0.8 04/15 [place] [facility] BLOOD BANK RBC product Product available 04/15 [facility] RESULTS (04/15/15 1:25 AM) /2014 [facility] URINE CHEM U Preg Negative Negative 04/15 (04/14/15 10:01 PM) /2014 [facility] ENDOCRINOLO hCG Tot <1 04/15 [place] GY [facility] HEMATOLOGY INR 1.09 0.85 - 04/15 [place] 1.17 [facility] HEMATOLOGY PT 14.4 12.0 - 04/15 [place] 14.7 [facility] BLOOD BANK ABO/Rh A POS 04/14 [place] RESULTS /2014 [facility] BLOOD BANK Antibody Scrn Negative 04/14 [facility] as RESULTS (04/14/15 5:37 PM) /2014 [facility] ELECTROLYTE AGAP 8.6 10.0 - 04/14 [place] S 20.0 [facility] ELECTROLYTE eGFR 126 04/14 Result S Comment: The Medical eGFR is Center calculated using the CKD-EPI formula. In most young, healthy individuals the eGFR will be >90 mL/min/1.73m2 . The eGFR declines with age. An eGFR of 60-89 may be normal in some populations, particularly the elderly, for whom the CKD-EPI formula has not been extensively validated. Use of the eGFR is not recommended in the following populations:< br/>
Yeimi viduals with unstable creatinine concentration s, including patients and those with serious co-morbid conditions.<b r/>
Patie nts with extremes in muscle mass or diet.

The data above are obtained from the National Kidney Disease Education Program (NKDEP) which additionally recommends that when the eGFR is used in patients with extremes of body mass index for purposes of drug dosing, the eGFR should be multiplied by the estimated BMI. ELECTROLYTE Calcium Lvl 8.4 8.5 - 10.5 04/14 [facility] ELECTROLYTE CO2 26 24 - 32 04/14 [facility] ELECTROLYTE Chloride Lvl 105 95 - 109 04/14 [facility] ELECTROLYTE Potassium Lvl 3.6 3.5 - 5.1 04/14 [place] [facility] ELECTROLYTE Sodium Lvl 136 135 - 145 04/14 [facility] ELECTROLYTE Creatinine 0.56 0.50 - 04/14 [facility] Lvl 1.40 [facility] ELECTROLYTE BUN 8 7 - 22 04/14 [facility] ELECTROLYTE Glucose Lvl 99 70 - 99 04/14 [facility] HEMATOLOGY Estimated % 0.0 0.0 - 7.5 04/14 [facility] HEMATOLOGY K-time 4.1 0.6 - 2.3 04/[address] HEMATOLOGY Rapid TEG Citrated Whole Blood 04/14 [facility] Sample Type (04/14/15 5:32 PM) /2014 [facility] HEMATOLOGY ACT (TEG) 97 86 - 118 04/[address] HEMATOLOGY Angle 74 64 - 80 04/[address] HEMATOLOGY [place] 0.3 04/[address] HEMATOLOGY R-time 0.5 0.4 - 0.7 04/[address] HEMATOLOGY Max Amp 33 52 - 71 04/[address] HEMATOLOGY G-value 2.4 5.0 - 11.6 04/[address] HEMATOLOGY Monocytes # 0.6 0.0 - 0.8 09/01 Normal [facility] HEMATOLOGY Eosinophils # 0.5 0.0 - 0.5 09/01 Normal [facility] HEMATOLOGY Lymphocytes # 1.2 1.0 - 5.5 09/01 Normal [facility] HEMATOLOGY Basophils 0.5 0.0 - 1.0 09/01 Normal [facility] HEMATOLOGY Segs 63.7 45.0 - 09/01 Normal [facility] 75.0 [facility] HEMATOLOGY Segs-Bands # 4.0 1.5 - 8.1 09/01 Normal [place] /2012 [facility] HEMATOLOGY Lymphocytes 19.3 20.0 - 09/01 [facility] [place] 40.0 /2012 [facility] HEMATOLOGY Monocytes 9.2 2.0 - 12.0 09/01 Normal /2012 [facility] HEMATOLOGY Eosinophils 7.3 0.0 - 4.0 09/01 [facility] [place]2012 [facility] HEMATOLOGY WBC 6.3 3.7 - 10.4 09/01 Normal [facility] HEMATOLOGY RBC 3.31 4.20 - 09/01 [facility] [place] 5.40 /2012 [facility] HEMATOLOGY Hgb 8.3 12.0 - 09/01 [facility] [place] 16.0 /2012 [facility] HEMATOLOGY MPV 9.5 7.4 - 10.4 09/01 [facility] HEMATOLOGY Platelet 86 133 - 450 09/01 [facility] HEMATOLOGY RDW 17.4 11.5 - 09/01 [facility] [place] 14.5 [facility] HEMATOLOGY MCHC 31.3 32.0 - 09/01 [facility] [place] 36.0 [facility] HEMATOLOGY Hct 26.4 36.0 - 09/01 [facility] [place] 48.0 /2012 [facility] HEMATOLOGY MCH 25.0 27.0 - 09/01 [facility] [place] 31.0 [facility] HEMATOLOGY MCV 79.9 81.0 - 09/01 [facility] [place] 99.0 /2012 [facility] BLOOD BANK RBC product Product available 08/31 [facility] RESULTS (08/31/2012 09:31:00) [facility] Phosphorus 3.7 2.5 - 4.5 08/31 Normal [facility] CHEMISTRY Magnesium Lvl 1.6 1.8 - 2.4 08/31 [facility] [place] [facility] CHEMISTRY AGAP 13.8 10.0 - 08/31 [facility] [place] 20.0 [facility] CHEMISTRY eGFR 124 08/31 NA <sup>1</sup>R [facility] esult Medical Comment: The Center eGFR is calculated using the CKD-EPI formula. In most young, healthy individuals the eGFR will be >90 mL/min/1.73m2 . The eGFR declines with age. An eGFR of 60-89 may be normal in some populations, particularly the elderly, for whom the CKD-EPI formula has not been extensively validated. Use of the eGFR is not recommended in the following populations:& lt;br/>
I ndividuals with unstable creatinine concentration s, including patients and those with serious co-morbid conditions.<b r/>
Patie nts with extremes in muscle mass or diet.

The data above are obtained from the National Kidney Disease Education Program (NKDEP) which additionally recommends that when the eGFR is used in patients with extremes of body mass index for purposes of drug dosing, the eGFR should be multiplied by the estimated BMI. CHEMISTRY Glucose Lvl 112 70 - 99 08/31 [place] <sup>3</sup>I [place] nterpretive Medical Data: Adult Center reference range values reflect the clinical guidelines
of the [place] [employer]. CHEMISTRY Creatinine 0.6 0.5 - 1.4 08/31 Normal [facility] l [facility] CHEMISTRY Chloride Lvl 105 95 - 109 08/31 Normal [facility] CHEMISTRY Potassium Lvl 3.8 3.5 - 5.1 08/31 Normal [place] [facility] CHEMISTRY BUN 3 7 - 22 08/31 LOW [facility] CHEMISTRY Sodium Lvl 140 135 - 145 08/31 Normal [facility] CHEMISTRY Calcium Lvl 8.7 8.5 - 10.5 08/31 [place] [facility] CHEMISTRY CO2 25 24 - 32 08/31 Normal [facility] HEMATOLOGY Hct 21.8 36.0 - 08/31 [facility] [place] 48.0 [facility] HEMATOLOGY Hgb 6.6 12.0 - 08/31 [place]sup[place]sup[place] 16.0 [facility] Medical Comment: Center Critical Result(s) called to Rosangela Nugent at 08/31/2012 04:30:58 CDT by GD. Read back OK. HEMATOLOGY MCV 80.1 81.0 - 08/31 [facility] [place] 99.0 /2012 [facility] HEMATOLOGY MCH 24.3 27.0 - 08/31 [facility] [place] 31.0 /2012 [facility] HEMATOLOGY RBC 2.72 4.20 - 08/31 [facility] [place] 5.40 /2012 [facility] HEMATOLOGY WBC 6.5 3.7 - 10.4 08/31 [facility] HEMATOLOGY MCHC 30.3 32.0 - 05 LOW [place] 36.0 /2012 [facility] HEMATOLOGY RDW 18.2 11.5 - 08/31 HI [place] 14. [facility] HEMATOLOGY MPV 9.4 7.4 - 10.4 08/31 Normal [place] [facility] HEMATOLOGY Platelet 84 133 - 450 05 LOW [facility] HEMATOLOGY Eosinophils 3.1 0.0 - 4.0 08/31 [place] [facility] HEMATOLOGY Lymphocytes 14.6 20.0 - 08/31 LOW [place] 40.0 /2012 [facility] HEMATOLOGY Monocytes 7.2 2.0 - 12.0 08/31 Normal [facility] HEMATOLOGY Segs-Bands # 4.9 1.5 - 8.1 08/31 Normal [facility] HEMATOLOGY Basophils 0.3 0.0 - 1.0 08/31 Normal [facility] HEMATOLOGY Eosinophils # 0.2 0.0 - 0.5 08/31 Normal [place] [facility] HEMATOLOGY Monocytes # 0.5 0.0 - 0.8 08/31 Normal [facility] HEMATOLOGY Lymphocytes # 0.9 1.0 - 5.5 08/31 [place] [facility] HEMATOLOGY Segs 74.8 45.0 - 08/31 Normal [place] 75.0 /2012 [facility] HEMATOLOGY RBC 2.72 4.20 - 05 LOW [place] 5.40 /2012 [facility] HEMATOLOGY WBC 8.8 3.7 - 10.4 08/31 Normal [facility] HEMATOLOGY MCH 24.6 27.0 - 05 LOW [place] 31.0 /2012 [facility] HEMATOLOGY Hct 22.3 36.0 - 05 LOW [place] 48.0 /2012 [facility] HEMATOLOGY MCV 82.0 81.0 - 08/31 Normal [place] 99.0 /2012 [facility] HEMATOLOGY MPV 9.9 7.4 - 10.4 08/31 Normal [facility] HEMATOLOGY MCHC 30.0 32.0 - 05 LOW [place] 36.0 /2012 [facility] Center HEMATOLOGY RDW 18.0 11.5 - 08/31 [facility] [place] 14. Medical Center HEMATOLOGY Platelet 85 133 - 450 08/31 LOW [facility] HEMATOLOGY Hgb 6.7 12.0 - 08/31 [place] <sup[place]sup[place] 16.0 [facility] Medical Comment: Center Critical Result(s) called to Wilda Godfrey at 08/30/2012 23:19:04 CDT by GD. Read back OK. HEMATOLOGY Segs-Bands # 7.3 1.5 - 8.1 08/31 Normal [place] /2012 [facility] HEMATOLOGY Basophils 0.2 0.0 - 1.0 08/31 Normal [place] [facility] HEMATOLOGY Monocytes # 0.6 0.0 - 0.8 08/31 [place] [facility] HEMATOLOGY Eosinophils # 0.1 0.0 - 0.5 08/31 [place] [facility] HEMATOLOGY Lymphocytes # 0.8 1.0 - 5.5 08/31 [place] /[place] [facility] HEMATOLOGY Monocytes 7.0 2.0 - 12.0 08/31 Normal /2012 [facility] HEMATOLOGY Lymphocytes 8.9 20.0 - 08/31 [facility] [place] 40.0 [facility] HEMATOLOGY Eosinophils 1.3 0.0 - 4.0 08/31 [place] /2012 [facility] HEMATOLOGY Segs 82.6 45.0 - 08/31 HI [place] 75.0 /2012 [facility] HEMATOLOGY Fibrinogen 219 230 - 510 08/30 LOW [facility] Lvl /2012 [facility] HEMATOLOGY PTT 27.4 22.9 - 08/30 Normal <sup>8</sup>[place] 35.8 nterpretive Medical Data: Heparin Center Therapeutic Range: 57 - 92 Second[facility] HEMATOLOGY INR 1.11 0.85 - 08/30 Normal <sup>7</sup>[place] 1. nterpretive Medical Data: Center RECOMMENDED RANGES FOR PROTIME INR:
2.0-3.0 for most medical and surgical thromboemboli c states.
2.5-3.5 for artificial heart valves and recurrent embolism.<br/ >
INR SHOULD BE USED ONLY FOR PATIENTS ON STABLE ANTICOAGULANT THERAPY. HEMATOLOGY PT 14.5 12.0 - 08/30 Normal [place] 14.7 [facility] BLOOD BANK Platelet Product available 08/30 Normal [facility] RESULTS product (08/30/2012 00:00:00) [facility] CHEMISTRY U Preg Negative Negative 08/29 Normal [facility] (08/29/2012 11:40:00) /2012 Me dical Center URINALYSIS UA Sq Epi Few /LPF Few 08/29 Normal [facility] (08/29/2012 11:40:00) /2012 [facility] URINALYSIS UA Mucus None Seen None Seen 08/29 Normal [facility] (08/29/2012 11:40:00) Me dical Center URINALYSIS UA RBC None Seen 0 - 2 08/29 Normal [facility] (08/29/2012 11:40:00) Me dical Center URINALYSIS UA Bacteria None Seen None Seen 08/29 [place] (08/29/2012 11:40:00) Me dical Center URINALYSIS UA WBC None Seen None Seen 08/29 Normal [facility] (08/29/2012 11:40:00) [facility] URINALYSIS UA Protein Negative mg/dL Negative 08/29 Normal [facility] (08/29/2012 11:40:00) [facility] URINALYSIS UA Spec Grav 1.010 <=1.030 08/29 Normal [facility] /2012 Medical Center URINALYSIS UA Glucose Negative mg/dL Negative 08/29 Normal [facility] (08/29/2012 11:40:00) [facility] URINALYSIS UA 0.2 0.1 - 1.0 08/29 Normal [facility] Urobilinogen /2012 Medical Center URINALYSIS UA Ketones Negative mg/dL Negative 08/29 NA [facility] *NA* /2012 Medical (08/29/2012 11:40:00) Ce nter URINALYSIS UA Bili Negative Negative 08/29 NA [facility] *NA* /2012 Medical (08/29/2012 11:40:00) Ce nter URINALYSIS UA Blood Negative Negative 08/29 Normal [facility] (08/29/2012 11:40:00) Me dical Center URINALYSIS UA Leuk Est Negative Negative 08/29 [place] (08/29/2012 11:40:00) Me dical Center URINALYSIS UA Nitrite Negative Negative 08/29 Normal [facility] (08/29/2012 11:40:00) Me dical Center URINALYSIS UA pH 6.0 5.0 - 8.0 08/29 Normal [facility] URINALYSIS UA Turbidity Clear Clear 08/29 Normal [place] (08/29/2012 11:40:00) [facility] URINALYSIS UA Color Yellow Yellow 08/29 NA [place] *NA* /2012 Medical (08/29/2012 11:40:00) Ce nter HEMATOLOGY Max Amp 34 52 - 71 08/29 LOW [facility] HEMATOLOGY G-value 2.6 5.0 - 11.6 08/29 LOW [facility] HEMATOLOGY Rapid TEG Citrated 08/29 NA [facility] Sample Type Whole Bld [facility] [place] HEMATOLOGY Estimated % 0.0 0.0 - 7.5 08/29 [place] HEMATOLOGY ACT (TEG) 105 86 - 118 08/29 Normal [facility] HEMATOLOGY [place] 0.4 08/29 NA [facility] HEMATOLOGY Angle 53 64 - 80 08/29 LOW [facility] HEMATOLOGY R-time 0.6 0.4 - 0.7 08/29 Normal [facility] HEMATOLOGY K-time 6.6 0.6 - 2.3 08/29 [place] [facility] BLOOD BANK Antibody Scrn Negative 08/29 Normal [place] RESULTS (08/29/2012 10:50:00) [facility] BLOOD BANK ABO/Rh A POS 08/29 Unknown [facility] CHEMISTRY Globulin 3.4 2.0 - 4.0 08/29 Normal [facility] CHEMISTRY Bili Indirect 0.0 0.0 - 1.0 08/29 Normal [facility] CHEMISTRY A/G Ratio 0.9 0.7 - 1.6 08/29 Normal [facility] CHEMISTRY Total Protein 6.5 6.4 - 8.4 08/29 Normal Medical Center CHEMISTRY Albumin Lvl 3.1 3.5 - 5.0 08/29 LOW [facility] CHEMISTRY Alk Phos 61 39 - 136 08/29 Normal [facility] CHEMISTRY Bili Total 0.1 0.2 - 1.3 08/29 LOW [facility] CHEMISTRY ALT 21 0 - 65 08/29 Normal [facility] CHEMISTRY AST 24 0 - 37 08/29 Normal [facility] CHEMISTRY Bili Direct 0.1 0.0 - 0.3 08/29 Normal [facility] CHEMISTRY AGAP 17.2 10.0 - 08/29 Normal [facility] 20.0 [facility] CHEMISTRY eGFR 132 08/29 NA <sup>2</sup>R esult Medical Comment: The Center eGFR is calculated using the CKD-EPI formula. In most young, healthy individuals the eGFR will be >90 mL/min/1.73m2 . The eGFR declines with age. An eGFR of 60-89 may be normal in some populations, particularly the elderly, for whom the CKD-EPI formula has not been extensively validated. Use of the eGFR is not recommended in the following populations:& lt;br/>
I ndividuals with unstable creatinine concentration s, including patients and those with serious co-morbid conditions.<b r/>
Patie nts with extremes in muscle mass or diet.

The data above are obtained from the National Kidney Disease Education Program (NKDEP) which additionally recommends that when the eGFR is used in patients with extremes of body mass index for purposes of drug dosing, the eGFR should be multiplied by the estimated BMI. CHEMISTRY CO2 23 24 - 32 08/29 LOW [facility] CHEMISTRY Calcium Lvl 7.9 8.5 - 10.5 08/29 [facility] CHEMISTRY BUN 4 7 - 22 08/29 LOW [facility] CHEMISTRY Glucose Lvl 90 70 - 99 08/29 Normal <sup>4</sup>I [place] nterpretive Medical Data: Adult Center reference range values reflect the clinical guidelines
of the [place] [employer]. CHEMISTRY Potassium Lvl 4.2 3.5 - 5.1 08/29 Normal [facility] CHEMISTRY Sodium Lvl 140 135 - 145 08/29 Normal [facility] CHEMISTRY Creatinine 0.5 0.5 - 1.4 08/29 Normal [facility] CHEMISTRY Chloride Lvl 104 95 - 109 08/29 Normal [facility] HEMATOLOGY Atypical 0.0 <=0.0 08/29 [facility] Lymphs [facility] HEMATOLOGY Bands 0.0 0.0 - 11.0 08/29 Normal [facility] HEMATOLOGY Plt Morph Normal 08/29 Normal [facility] (08/29/2012 10:50:00) [facility] HEMATOLOGY Microcyte 1+ None Seen 08/29 ABN [facility] *ABN* /2012 [facility] (08/29/2012 10:50:00) Ce nter HEMATOLOGY Hypochrom Slight None Seen 08/29 Normal [facility] (08/29/2012 10:50:00) [facility] HEMATOLOGY Schistocyte Rare 08/29 Unknown [facility] HEMATOLOGY Polychrom Slight None Seen 08/29 Normal [facility] (08/29/2012 10:50:00) [facility] Pathology Reports No Data Provided for This Section Diagnostic Reports Report Value Date Source Ankle 3 views DX EXAM: XR LEFT ANKLE 3 VIEWS 06/30/2015 [facility] EXAM: XR LEFT TIBIA 2 VIEWS Cent er DATE: 06/30/2015 at 1047 hours INDICATION: Pain from a fall COMPARISON: 05/25/2015 radiographs, 04/14/2015 C T TECHNIQUE: AP, lateral and oblique radiographs of the left ankle, AP and lateral radiographs of the left tibia-fibula FINDINGS: Anterolateral p late and screw fixation of the comminuted, oblique left distal tibial shaft fracture projects in unchanged alignment, with interval development of callus formation surroundin g the fracture margins. Ther e is no perihardware lucency or evidence of failure. A displaced distal shaft fibular fracture is unchanged. Regional disuse osteopenia is present. A chronic, ununited transver se fracture of the medial malleolus is again noted, along with chronic deformity of the lateral aspect of the tibial plafond, with cystic change and sclerosis in this region better visualized on the prior CT examination. IMPRESSION: Early healing a nd unchanged alignment of the comminuted, extra- articular left distal tibial shaft fracture. Tibia fibula series EXAM: XR LEFT ANKLE 3 VIEWS 06/30/2015 [facility] Medical DX EXAM: XR LEFT TIBIA 2 VIEWS Cent er DATE: 06/30/2015 at 1047 hours INDICATION: Pain from a fall COMPARISON: 05/25/2015 radiographs, 04/14/2015 C T TECHNIQUE: AP, lateral and oblique radiographs of the left ankle, AP and lateral radiographs of the left tibia-fibula FINDINGS: Anterolateral p late and screw fixation of the comminuted, oblique left distal tibial shaft fracture projects in unchanged alignment, with interval development of callus formation surroundin g the fracture margins. Ther e is no perihardware lucency or evidence of failure. A displaced distal shaft fibular fracture is unchanged. Regional disuse osteopenia is present. A chronic, ununited transver se fracture of the medial malleolus is again noted, along with chronic deformity of the lateral aspect of the tibial plafond, with cystic change and sclerosis in this region better visualized on the prior CT examination. IMPRESSION: Early healing a nd unchanged alignment of the comminuted, extra- articular left distal tibial shaft fracture. Ankle 3 views DX EXAM: XR LEFT ANKLE 3 VIEWS 05/25/2015 [facility] DATE 05/25/2015 at 11:53 AM Cent er INDICATION: Post-Reduction COMPARISON: 05/21/2015 TECHNIQUE: AP, lateral and oblique radiographs of the left ankle FINDINGS: Overlying cast material obscures bony detail. Anterolateral plate and screw fixation of the comminuted distal tibial shaft fracture is again identified remains in unchanged, satisfactory a lignment. A mildly displaced distal fibular shaft fracture is unchanged. A medial malleolus nonunion is again noted. Impaction along the lateral aspect of the tibial plafond is better visualized on prer eduction imaging. The ankle mortise is congr uent. IMPRESSION: Unchanged, sati sfactory alignment following internal fixation of the comminuted left distal tibial shaft fracture. Ankle 2 views DX EXAM: XR LEFT ANKLE 2 VIEWS 05/21/2015 [facility] DATE: 05/21/2015 1:02 PM [facility] MACH[facility] Cente r INDICATION: Post Op X-ray ORIF Left Ankle COMPARISON: 04/14/2015 TECHNIQUE: AP and lateral radiographs of the lef t ankle FINDINGS: There has been int erim anterolateral combination locking plate and screw fixation of the comminuted distal tibial shaft fracture, which projects in satisfactory alignment on all views. An old, ununited medial malleolus f racture is unchanged. Cystic change at the lateral aspect of the tibial plafond is obscured by overlying hardware. Slight distraction of the di stal fibular shaft fracture by approximately 1 cm is present without offset. Expected postoperative subcutaneous emphysema and soft tissue swelling are present. IMPRESSION: 1. Satisfactory alignment of the comminuted distal tibial shaft fracture following internal fixation. 2. Improved alignment of the distal fibular shaft fracture, with an approximately 1 cm gap remaining. 3. Unchanged medial malleolus nonunion. Ankle wo contrast CT EXAM: CT LEFT ANKLE WITHOUT CONTRAST 2014 [facility] DATE: 2015-04-14 22:21:00 INDICATION: Fracture COMPARISON: Multiple prior radiographs TECHNIQUE: Volumetric CT acq uisition of the left ankle without contrast. Axial, sagittal and coronal reformats. FINDINGS: There is an old un united fracture of the medial malleolus displacement. There is also an osteochondral lesion of the lateral tibial plafond and with associated surrounding second osteoarthrosis. The talar dome is intact. There is mild chronic anteri or subluxation of the syndesmosis without widening due to a small avulsion fracture, chronic, of the anterolateral tibial plateau at the AITFL insertion. There is also a smal l ossicle, likely due to david or trauma, of the PITFL is the insertion of the tibia. There is a comminuted fractu re of the distal fibula above the syndesmosis with minimal apex lateral angulation. There is also a comminuted distal tibial fracture above the syndesmosis with 2 cortex widt h anterior displacement and less than 5 mm impaction. The new fracture line does not involves the tibial plafond. The extensor, flexor, and peroneal tendons are intact. IMPRESSION: 1. 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 2. 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 3. Chronic anterior subluxat ion of the distal fibula at the syndesmosis secondary to chronic avulsion fracture of the anterolateral tibial plafond at the AITFL insertion. 4. Acute comminuted distal f ibular fracture with minimal apex lateral angulation above the syndesmosis. 5. Acute distal tibial fract ure above the syndesmosis sparing the tibial plafond with 2 cortex width anterior displacement and 5 mm impaction. Femur series DX EXAM: XR LEFT FEMUR 2 VIEWS 04/14/2015 [facility] DATE: 2015-04-14 21:05:00 INDICATION: Fracture. COMPARISON: None available. TECHNIQUE: AP and lateral radiographs of the le ft femur FINDINGS: No fracture, dislo cation or other acute bony abnormality is identified. No soft tissue abnormality is identified. IMPRESSION: No abnormality identified. Ankle 3 views DX EXAM: XR LEFT ANKLE 3 VIEWS 04/14/2015 [facility] DATE: 2015-04-14 21:05:00 INDICATION: Post-Reduction COMPARISON: Left ankle dated 04/14/2015 TECHNIQUE: AP, lateral and oblique radiographs of the left ankle DISCUSSION: There has been i nterval splint placement which obscures soft tissue and fine bone detail. The oblique and mildly comminuted fractures of the distal tibia and fibula show improved alignment s tatus post splint placement. No additional fractures identified. There is soft tissue swelling surrounding the fracture sites. IMPRESSION: Improved alignment in the me diolateral plane of the distal tibia and fibular fractures although there is now two cortex width anterior displacement of the distal tibia. Foot series DX EXAM: XR LEFT KNEE 3 VIEWS 04/14/2015 [facility] EXAM: XR LEFT TIBIA 2 VIEWS Cent er EXAM: XR LEFT ANKLE 3 VIEWS EXAM: XR LEFT FOOT 3 VIEWS DATE: 2015-04-14 17:51:00 INDICATION: Trauma COMPARISON: None available. TECHNIQUE: [<AP, lateral an d oblique radiographs of the left knee.] AP and lateral radiographs of the left tibia-fibula. AP, lateral, and oblique ra diographs of the left ankle. AP, lateral, and oblique radiographs of the left foot. FINDINGS: There are comminut ed fractures of the distal fibular shaft and the tibia metaphysis with lateral displacement of the distal fracture fragments. The medial malleolus has a horizontally oriented fracture showing only minim al distal displacement. The sclerotic border of the medial malleolus fracture indicates it may be a chronic incomplete union fracture. No additional fractures are identified. There is no joint effusion at the knee. There is soft tissue swelling around the fracture site. IMPRESSION: 1. Unchanged alignment moderately displa jacinto distal tibia and fibula fractures. 2. Minimally displaced fract ure of the medial malleolus which may be chronic given the sclerotic border. Tibia fibula series EXAM: XR LEFT KNEE 3 VIEWS 04/14/2015 [facility] DX EXAM: XR LEFT TIBIA 2 VIEWS Cent er EXAM: XR LEFT ANKLE 3 VIEWS EXAM: XR LEFT FOOT 3 VIEWS DATE: 2015-04-14 17:51:00 INDICATION: Trauma COMPARISON: None available. TECHNIQUE: [<AP, lateral an d oblique radiographs of the left knee.] AP and lateral radiographs of the left tibia-fibula. AP, lateral, and oblique ra diographs of the left ankle. AP, lateral, and oblique radiographs of the left foot. FINDINGS: There are comminut ed fractures of the distal fibular shaft and the tibia metaphysis with lateral displacement of the distal fracture fragments. The medial malleolus has a horizontally oriented fracture showing only minim al distal displacement. The sclerotic border of the medial malleolus fracture indicates it may be a chronic incomplete union fracture. No additional fractures are identified. There is no joint effusion at the knee. There is soft tissue swelling around the fracture site. IMPRESSION: 1. Unchanged alignment moderately displa jacinto distal tibia and fibula fractures. 2. Minimally displaced fract ure of the medial malleolus which may be chronic given the sclerotic border. Knee 3 views DX EXAM: XR LEFT KNEE 3 VIEWS 04/14/2015 [facility] EXAM: XR LEFT TIBIA 2 VIEWS Cent er EXAM: XR LEFT ANKLE 3 VIEWS EXAM: XR LEFT FOOT 3 VIEWS DATE: 2015-04-14 17:51:00 INDICATION: Trauma COMPARISON: None available. TECHNIQUE: [<AP, lateral an d oblique radiographs of the left knee.] AP and lateral radiographs of the left tibia-fibula. AP, lateral, and oblique ra diographs of the left ankle. AP, lateral, and oblique radiographs of the left foot. FINDINGS: There are comminut ed fractures of the distal fibular shaft and the tibia metaphysis with lateral displacement of the distal fracture fragments. The medial malleolus has a horizontally oriented fracture showing only minim al distal displacement. The sclerotic border of the medial malleolus fracture indicates it may be a chronic incomplete union fracture. No additional fractures are identified. There is no joint effusion at the knee. There is soft tissue swelling around the fracture site. IMPRESSION: 1. Unchanged alignment moderately displa jacinto distal tibia and fibula fractures. 2. Minimally displaced fract ure of the medial malleolus which may be chronic given the sclerotic border. Ankle 3 views DX EXAM: XR LEFT KNEE 3 VIEWS 04/14/2015 [facility] EXAM: XR LEFT TIBIA 2 VIEWS Cent er EXAM: XR LEFT ANKLE 3 VIEWS EXAM: XR LEFT FOOT 3 VIEWS DATE: 2015-04-14 17:51:00 INDICATION: Trauma COMPARISON: None available. TECHNIQUE: [<AP, lateral an d oblique radiographs of the left knee.] AP and lateral radiographs of the left tibia-fibula. AP, lateral, and oblique ra diographs of the left ankle. AP, lateral, and oblique radiographs of the left foot. FINDINGS: There are comminut ed fractures of the distal fibular shaft and the tibia metaphysis with lateral displacement of the distal fracture fragments. The medial malleolus has a horizontally oriented fracture showing only minim al distal displacement. The sclerotic border of the medial malleolus fracture indicates it may be a chronic incomplete union fracture. No additional fractures are identified. There is no joint effusion at the knee. There is soft tissue swelling around the fracture site. IMPRESSION: 1. Unchanged alignment moderately displa jacinto distal tibia and fibula fractures. 2. Minimally displaced fract ure of the medial malleolus which may be chronic given the sclerotic border. Chest 1view EXAM: CHEST 1 VIEW 08/29/2012 [facility] DATE: August 29, 2012 12:23:00 PM INDICATION: Pleuritic pain COMPARISON: None available TECHNIQUE: A single AP view of the chest FINDINGS: The lungs are angeli ar. The costophrenic sulci are sharp without effusion. The heart size and mediastinal contours are within normal limits. No acute bony abnormality is identified. IMPRESSION: No acute cardiopulmonary abnormality identified. Consultation Notes No Data Provided for This Section Discharge Summaries No Data Provided for This Section History and Physicals No Data Provided for This Section Vital Signs Vital Sign Value Date Comments Source Heart Rate 71 12/20/2015 [facility] Temperature Oral (F) 98.7 F 12/20/2015 [facility] Systolic (mm Hg) 101 12/20/2015 [facility] Diastolic (mm Hg) 64 12/20/2015 [facility] Respitory Rate 18 12/20/2015 [facility] Temperature Oral (F) 98.2 F 12/20/2015 [facility] Systolic (mm Hg) 103 12/20/2015 [facility] Diastolic (mm Hg) 72 12/20/2015 [facility] Respitory Rate 18 12/20/2015 [facility] Heart Rate 60 12/20/2015 [facility] Systolic (mm Hg) 96 12/20/2015 [facility] Diastolic (mm Hg) 60 12/20/2015 [facility] Respitory Rate 18 12/20/2015 [facility] Heart Rate 71 12/20/2015 [facility] Temperature Oral (F) 97.8 F 12/20/2015 [facility] Height 167.64 cm 12/18/[facility] BMI Calculated 24.26 12/18/2015 [facility] Weight 68.182 12/18/2015 [facility] Weight 65.909 12/18/2015 [facility] BMI Calculated 23.45 12/18/2015 [facility] Height 167.64 cm 12/18/2015 [facility] Systolic (mm Hg) 108 07/01/2015 [facility] Diastolic (mm Hg) 59 07/01/2015 [facility] Temperature Oral (F) 98 F 07/01/2015 [facility] Respitory Rate 18 07/01/2015 [facility] Systolic (mm Hg) 113 07/01/2015 [facility]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 Results review: Labs (Last four charted values) WBC 4.2 (MAY 22) 6.8 (MAY 21) 7.9 (MAY 20) Hgb C 6.4 (MAY 22 ) L 9.0 (MAY 21) L 10.0 (MAY 20) Hct L 20.7 (MAY 0 5) L 28.9 (MAY 21) L 31.8 (MAY [...] and Plan Diagnosis Orders Education and Follow-up: Counseled : Regarding treatment, Regarding medications. 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 Pt had ex-fix removal and ORIF of th e left distal tibia with wound vac placement on 05/21/15. Post-operatively she complained of severe pain and required high levels of narcotics; APMS is consulted for pain management. Plan: - Decrease methadone to 5mg Q8H - Start dronabinol 5mg Q12H - Increase gabapentin to 1200mg PO Q8H - Start Cary 10/325 2 tabs Q4H PRN - Discontinue oxycodone and acetaminophen - Continue tramadol 100mg PO Q6H - Clonazepam 0.5mg PO Q8H - Robaxin 1000mg PO Q8H - Trazodone 50mg PO QHS - Dilaudid 0.5mg IV Q4H PRN - Fioricet PO Q6H PRN Thank you for this consult. APMS will c ontinue to follow; please call [phone] with questions. Addendum by Sharad Hong MD on 05/22/2015 12:02 TEACHING PHYSICIAN ADDENDUM: I saw and p ersonally examined this patient and discussed the plan of care with this resident. I have reviewed the note below and agree with the history, examination findings and the plan of care. Sharad Hong MD Extracted from:Title: Hospitalist History and Physical Author: Clary Peterson MD Date: 05/20/15 Assessment/Plan 1.Fracture tibia/fibula ex-fix in place. 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 Pt reports pain is stable . OBJECTIVE Vitals Tmp(F) Pulse BP RR SpO2 FIO2 05/10 03:26 98.1 89 115/63 18 97 --- 05/10 01:05 98.2 80 108/70 18 99 --- 05/09 23:00 98.3 70 114/70 18 98 --- 05/09 22:07 98.5 66 101/61 18 99 --- 05/09 21:52 98.5 83 101/61 18 97 --- 24 Hr Tmax: 99.1F (37.28c) at 05/09 10:3 7 Vital Signs are the last 5 in [...] Cordova still necessary (Yes/No): Line still necessary (Sanjay s/No): Date Wt(kg) Wt(lb) Ht(cm) Ht(in) Method 05/09 (initial) 77.27 170.00 Measured 05/09 167.64 66.00 Stated I&O Record In Out Bal 05/09 24hr Tot 2184 1 2183 05/08 24hr Tot 0 0 0 Medications (11) Active Scheduled Meds (2): 05/09/15 acetaminophen (Ofirmev) 1,000 mg IV Q6H 05/10/15 aminocaproic acid + Sodium Chlo ride 0.9% IV 250 mL (Amicar + Sodium Chloride 0.9% IV 250 mL) 3 gm IV Q8H 87.33 ml/hr Unscheduled Meds (1): 05/09/15 acetaminophen 650 mg PO ONCALL PRN Meds (3): 05/09/15 clonazePAM 0.25 mg PO TID 05/09/15 hydromorphone (Dilaudid) 0.2 mg IV Q3H 05/09/15 melatonin 3 mg PO Bedtime One Time Meds (3): 05/09/15 (Completed) hydromorphone (Dilaudid) 0.5 mg IV ONC E 05/09/15 (Discontinued) morphine Sulfate 4 mg IVP ONCE 05/09/15 (Completed) ondansetron 4 mg IVP ONCE Continuous Infusions (2): 05/09/15 Dextrose 5% in Lactated Ringers IV 1,000 mL (D5LR 1,000 mL) 1,000 mL 125 ml/hr 05/09/15 Sodium Chloride 0.9% IV 250 mL (Sodium Chloride 0.9% (titrate) 250 mL) 250 mL college scouting coordinator for use with blood product administration ASSESSMENT 29 yo with h/o Glanzmann's throm basthenia presenting with ruptured hemorrhagic ovarian cyst. PLAN 1. Ruptured hemorrhagic cyst- Arising fr om right ovary with free fluid in posterior cul-du-sac suggestive of hemoperitoneum. Hgb on arrival 6.9 after 1 u PRBCs at outside hospital. No peritoneal signs on abdominal exam. Hemodynamically stable. 2. Glanzmann's thrombasthenia- s/p Hemat ology consult. Recs include transfusing plts before any procedure. Start Amicar 3g and d/c w/ PO amicar. Have pt f/u with Hematology on d/c. 3. Acute Blood Loss Anemia: 6.0 --> 1 u PRBCs 6.9 --> 6.6-->2U PRBCs-->8.3. Pt asymptomatic Dispo: Anticipate d/c home today after touching base w/ narcisa tology. Amina Kyle MD PGY-2 Extracted from:Title: Hematology Initial Consult Author: Aguilar Mcnally MD Date: 05/09/15 RFC: Evaluation of Glanzmann Thrombasthenia in a patient wit h a Uterine bleed HPI: 29 y.o. F w/ Glanzmann Thrombasthen ia, iron deficiency anemia, and Hepatitis C she presents with 1 day of abdominal pain, nausea, chills and found to have a ruptured uterine cyst. She recieved 1 u nit of prbcs at an outside hosptial and was transferred here . Review of Symptoms: Const: denies fevers and chills Eyes: no blurry vision ENT: no cough, no trouble swallowing Resp: no shortness of rbeath CV: no chest pain GI: no nausea or vomiting : no dysuria Skin: no rash Isotope Hydrologist: see HPI Heme: see HPI Neuro: no headache 10 point review of systems is negative unless stated above PAST MEDICAL HISTORY: Glanzmann Thrombastehnia Iron Deficiency Anemia Hepatitis C PAST SURGICAL HISTORY: Hernia Repair Cholecystectomy x2 SOCIAL HISTORY: Denies EtOH, illicits, smoking FAMILY HISTORY: No family hx of bleeding disorders, glanzmann or osteoporosi s Allergies (3) Active Reaction Iron None documented NSAIDs None documented aspirin None documented MEDS: reviewed in care 4 Physical Exam: Vitals Tmp(F) Pulse BP RR SpO2 FIO2 05/09 08:12 98.3 86 101/59 18 --- --- 01/23 07:30 ---- 80 104/61 18 98 --- 05/09 07:08 ---- 97 110/51 16 97 --- 05/09 06:04 99.0 104 114/57 16 98 --- 24 Hr Tmax: 99.0F (37.22c) at 05/09 06:0 4 Vital Signs are the last 5 in [...] PLAN: 29 y.o. F w/ Glanzmann Thrombasthenia, i timothy deficiency anemia, Hepatitis C who presents after [...] - At time of discharge, please make foll ow up with her primary Credit Risk Officer (Matthias Rothman) [phone] - At time of discharge, patient will nee d a script for Amicar 3g q6-8h PRN bleeding, 60 tablets (or enough to last her until she sees Dr. Rothman in clinic) # Iron Deficiency Anemia - Hx of being on oral iron, but varied compliance - Please start PO Ferrous Sulfate 325mg - transfuse per primary team; please let hematology know prior to discharge as she may benefit from IV iron prior to discharge Pt was seen and the plan was discussed with Dr. Holliday who hel ped formulate it. Addendum by Duglas Holliday MD on 05/09/2015 16:45 Hematology Attending Attestation: I saw and examined this patient with Dr. Mcnally on 05/09/2015, and I agree with findings, assessment, and recommended plan of care. I personally reviewed all labs. Duglas Holliday M.D. [id number] [employer] Accountant Division of Hematology (Internal Medicine) [facility] Extracted from:Title: Clinical Document 04/19/2015 [facility] Author: Harmeet Vuong MD Date: 04/18/15 Hematology Daily Progress Note Patient Room: [place] [address], 6EJ SEKOU ABERNATHY N 29y (: 1985) F Attending: Arturo Gunter MD Service: Internal Medicine Subjective: left lower extremity pain well controlled, no bl eeding Objective: Vitals Tmp(F) Pulse BP RR SpO2 FIO2 04/18 16:24 98.6 83 111/61 20 --- --- 04/18 11:35 98.8 76 112/64 18 96 --- 04/18 07:51 98.8 76 115/60 18 97 --- 04/18 03:59 98.1 77 110/66 18 98 21% 04/17 23:00 98.1 90 104/73 18 98 21% 24 Hr Tmax: 98.8F (37.11c) at 04/18 11:3 5 Vital Signs are the last 5 in the past 48 hours. Date Wt(kg) Wt(lb) Ht(cm) Ht(in) Method 04/15 81.82 180.00 167.70 66.02 Estimated 12/29 (initial) 81.82 180.00 Measured 04/14 167.64 66.00 Stated General- Well-appearing female in NAD HEENT- PERRL, EOMI, sclerae anicteric, o ropharynx clear without any noted lesions CVS- RRR, S1/S2 present, no m/g/r Chest- CTAB Abdomen- Soft, ND/NT, +BS, no hepatosplenomegaly palpated Extremities- LLE with external fixator i n place, s/p surgery, edematous but no obvious signs of bleeding through the gauze Skin- No rash Neuro- Nonfocal Psych- Normal affect Data: no new labs today Assessment/Plan: 29 y.o. 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 Lack of this causes a coagulopathy as no fibrin or formal clot can form. - Please discontinue Amicar 3g (12cc) q8 h, she has received it for 3 days after her surgery. - Please give 1 jumbopack of platelets prior to any planned surgical procedure - If excess bleeding occurs, please call Hematology. Will need to dose with Factor VIIa 30mcg/kg IV x1, but call prior to giving - At time of discharge, please make foll ow up with her primary Credit Risk Officer (Matthias Rothman) [phone], she is also requesting that this phone number be put on her discharge paperwork - At time of discharge, patient will nee d a script for Amicar 3g q6-8h PRN bleeding, 60 tablets (or enough to last her until she sees Dr. Rothman in clinic) # Iron Deficiency Anemia - Hx of being on oral iron, but varied compliance - PO Ferrous Sulfate 325mg BID # DVT Prophylaxis - Please do not give as patient is coagulopathic and at high risk for bleeding Harmeet Vuong MD PHD Hematology/Oncology Fellow [facility] [place] Extracted from:Title: APMS Consult Note Author: Michael Milner MD Date: 04/16/15 Patient: SEKOU CAMPBELL MR N: [id number] Age: 29 years Sex: Female : 1985 Associated Diagnoses: None Author: Michael Milner MD Basic Information Referral source Reason for consultation: Complex Acute Pain Chief Complaint Pt resting in bed with 8/10 L ankle pain History of Present Illness 29 y/o female PMH of Glanzmann thrombast alfonso presented after mechanical fall found to have left distal tib/fib fracture. Had ex-fix placemennt on 04/15 but continues to have uncontrolled pain in her an kle. APMS on board to assist with pain management. Histories Past Medical History: Resolved Cholecystitis ([id number]): Resolved. Glanzmann thromboasthenia ([id number]): Resolved. Hepatitis C ([id number]): Resolved. Family History: High blood pressure Father Ovarian cancer 31-JAN-2015 22:55:54<$> Mother Procedure history: section ([id number]). Social History Social and Psychosocial Habits Tobacco 04/14/2015 Use: Never smoker [...] 150 mL: 3 gm, 12 mL, 54 ml/ hr, IVPB, Q8H Dilaudid: 1 mg, 0.5 mL, IV, Q4H, PRN: Pain Score 7-10 Robaxin: 1,000 mg, PO, Q8H Saline Flush 0.9%: 10 mL, IVP, PRN, PRN: Line Flush acetaminophen: 1,000 mg, 2 tab, PO, Q6H diphenhydrAMINE: 12.5 mg, 5 mL, PO, Q6H, PRN: Itching docusate: 100 mg, 1 cap, PO, BID dronabinol: 5 mg, 1 cap, PO, [id number] gabapentin: 600 mg, 2 cap, PO, Q8H methadone: 5 mg, 1 tab, PO, Q8H normal saline 0.9% IV 1,000 mL: 100 ml/hr, IV, Stop: 6 17:27:00 ondansetron: 4 mg, 2 mL, IVP, Q8H, PRN: Nausea and Vomiting oxyCODONE 5 mg immediate release: 10 mg, 2 tab, PO, Q4H, PRN : Pain Score 7-10 oxyCODONE 5 mg immediate release: 5 mg, 1 tab, PO, Q4H, PRN: Pain Score 4-6 senna: 17.2 mg, 2 tab, PO, Bedtime tramadol: 100 mg, 2 tab, PO, Q6Hnow trazodone 50 mg oral tablet: 50 mg, 1 tab, PO, Bedtime Documented Medications Documented Amicar: 1 gm, PO, Q6H, 0 Refill(s) Cary 10/325 oral tablet: 1 tab, PO, Q4H, PRN: for pain, Medications (17) Active Scheduled: (10) acetaminophen 500 mg TAB 1,000 mg 2 tab, PO, Q6H aminocaproic acid INJ + sodium chloride 0.9% INJ 150 mL 3 gm 12 mL, IVPB, Q8H docusate sodium 100 mg CAP 100 mg 1 cap, PO, BID dronabinol 5 mg CAP 5 mg 1 cap, PO, [id number] gabapentin 300 mg CAP 600 mg 2 [...] Musculoskeletal: Negative except as documented in history o f present illness. Neurologic: Negative. Psychiatric: Negative. Endocrine: Negative. Hematology/Lymphatics: Negative except as documented in history of present illness. Physical Examination VS/Measurements Measurements from flowsheet : Measurements 04/15/2015 01:19 Heparin Dosing We ight (kg) 68.34 04/15/2015 01:18 Height 167.7 cm Height Collection Method Stated Weight 81.818 kg Dosing Weight Difference Percent 0 % Dosing Weight Collection Method Estimat ed Body Surface Area 1.9523 m2 Body Mass [...] Neurologic: Alert, Oriented, Normal sensory, No focal defic its. Review / Management Results review: Labs (Last four charted values) WBC 5.5 (APR 16) 5.7 (APR 15) 9.0 (APR 14) Hgb L 8.1 (APR 16 ) C 6.7 (APR 15) C 6.8 (APR 15) L 7.4 (APR 14) Hct L 25.2 (MAR 19) L 22.7 (APR 15) L 23.2 (APR 15) L 24.3 (APR 14) Plt L 91 (APR 16) L 108 (APR 15) 137 (APR 14) Na 140 (APR 16) 141 (APR 15) 136 (APR 14) K 3.7 (APR 16) 3.8 (APR 15) 3.6 (APR 14) CO2 24 (APR 16) L 23 (APR 15) 26 (APR 14) Cl 108 (APR 16) H 110 (D EC ) 105 (APR 14) Cr 0.59 (APR 16) L 0.47 (APR 15) 0.56 (APR 14) BUN L 5 (APR 16) L 4 (APR 15) 8 (APR 14) Glucose Random H 107 (APR 16 ) H 111 (APR 15) 99 (APR 14) Ca L 7.8 (APR 16 ) L 8.1 (APR 15) L 8.4 (APR 14) PT 14.4 (APR 14) INR 1.09 (APR 14) . Chest x-ray results ECG interpretation Impression and Plan Diagnosis Orders Education and Follow-up: Counseled : Regarding treatment, Regarding medications. 29 y/o female PMH of Glanzmann thrombast alfonso presented after mechanical fall found to have left distal tib/fib fracture. Had ex-fix placement on 04/15 but continues to have uncontrolled pain in her ankle. Plan: multimodal analgesic therapy continue tramadol 100mg PO q6h change acetaminophen IV to 1000mg PO q6h increase gabapentin 600mg PO q8h add robaxin 1000mg PO q8h add methadone 5mg PO q8h APMS will follow. please call [phone] for questions Addendum by Sharad Hong MD on 04/16/2015 15:22 TEACHING PHYSICIAN ADDENDUM: I saw and p ersonally examined this patient and discussed the plan of care with this resident. I have reviewed the note below and agree with the history, examination findings and the plan of care. Sharad Hong MD Extracted from:Title: Hospitalist History and Physical Author: Marquez Cano MD Date: 04/15/15 Assessment/Plan 1.Fracture of left tibi a and fibula NPO for planned surgical intervention with ortho, NWB LLE 2.Acute pain due to trauma start sched uled tylenol, gabapentin, tramadol, and prn oxycodone and IV morphine 3.Glanzmann thrombasthenia spoke with hematology are recommending continue amicar 3gm q8hrs, and transfuse 12 pack platelets prior to surgery 4.Chronic blood loss anemia due to galen telet dysfunction and heavy menstrual bleeding, continue to monitor and transfuse prn, no overt bleeding at this time Orders: acetaminophen, 1,000 mg, 100 m L, Route: IVPB, Drug form: INJ, Q6Hnow, Dosing Weight 81.818, kg, Start date: 04/15/15 0:00:00, Duration: 30 day, Stop date: 05/14/15 18:00:00 diphenhydrAMINE, 12.5 mg, 5 mL, Route: PO, Drug form: LIQ, Q6H, Dosing Weight 81.818, kg, PRN Itching, Start date: 04/14/15 23:45:00, Duration: 30 day, Stop date: 05/14/15 23:44:00 docusate, 100 mg, 1 cap, Route: PO, Dr ug form: CAP, BID, Dosing Weight 81.818, kg, Start date: 04/15/15 9:00:00, Duration: 30 day, Stop date: 05/14/15 17:00:00 gabapentin, 300 mg, 1 cap, Route: PO, Drug form: CAP, Q8Hnow, Dosing Weight 81.818, kg, Start date: 04/15/15 0:00:00, Duration: 30 day, Stop date: 05/14/15 16:00:00 morphine Sulfate, 2 mg, 1 mL, Route: I [employer], Drug form: INJ, Q4H, Dosing Weight 81.818, kg, PRN Pain Score 7-10, Start date: 04/14/15 23:45:00, Duration: 30 day, Stop date: 05/14/15 23:44:00 ondansetron, 4 mg, 2 mL, Route: IVP, D rug form: INJ, Q8H, Dosing Weight 81.818, kg, PRN Nausea and Vomiting, Start date: 04/14/15 23:45:00, Duration: 30 day, Stop date: 05/14/15 23:44:00 oxyCODONE, 10 mg, 2 tab, Route: PO, Dr ug form: TAB, Q4H, Dosing Weight 81.818, kg, PRN Pain Score 7-10, Start date: 04/14/15 23:45:00, Duration: 30 day, Stop date: 05/14/15 23:44:00 oxyCODONE, 5 mg, 1 tab, Route: PO, Nabil g form: TAB, Q4H, Dosing Weight 81.818, kg, PRN Pain Score 4-6, Start date: 04/14/15 23:45:00, Duration: 30 day, Stop date: 05/14/15 23:44:00 senna, 17.2 mg, 2 tab, Route: PO, Drug Form: TAB, Dosing Weight 81.818, kg, Bedtime, Start date: 04/15/15 21:00:00, Duration: 30 day, Stop date: 05/14/15 21:00:00 tramadol, 100 mg, 2 tab, Route: PO, Dr ug form: TAB, Q6Hnow, Dosing Weight 81.818, kg, Start date: 04/15/15 0:00:00, Duration: 30 day, Stop date: 05/14/15 18:00:00 Ambulation CDM Acute Pain/Anxiolytic Orders Notify MD Notify MD Notify MD Patient Education AC4 Platelet product order (1 Dose=6 Units) Prophylaxis no chemical ppx due to platelet dysfunction, continue with SCD to RLE Disposition Pending surgical intervention and further Ortho/heme recs Hospitalist is primary, pager [phone] Plan of Care No Data Provided for This Section Social History Social History Date Source Social History TypeResponse 05/20/2015 [facility] Substance Abuse Use: None. Alcohol Past, Type Wine. Frequency: 1-2 times p er month. Previous treatment: None. Alcohol use interferes with work or home: No. Drinks more than intended: No. Others hurt by drinking: No. Smoking Status Current some day smoker; Type: Cigarette s; Tobacco use per day: 1; Number of years: 1; Started at age: 30.0; Stopped at age: 30; Previous treatment: None; Ready to change: No; Concerns about tobacco use in household: No; Exposure to Tobacco S moke None; Cigarette Smoking Last 365 Days Yes; Reg Smoking Cessation Counseling Yes Family History No Data Provided for This Section Advance Directives No Data Provided for This Section Functional Status No Data Provided for This Section
--- OUTSIDE RECORDS SUMMARY | 2020-05-02 21:07 | XMS REPORT | Continuity of Care Document ---
:1985 Author Organization [facility] t Address [address] [place] [address] Care Team Providers Name Role Phone Misael RINCON Attending Clinician Unavailable Samuel RINCON, Leta Attending Clinician Unavailable Mabel Woods MD Attending Clinician Visit, Nurse Attending Clinician Unavailable Roger CASTILLOP, N Attending Clinician Holger Upton MD Attending Clinician Rocío SANDRA, S Attending Clinician Dl SANDRA Attending Clinician Ultrasound Attending Clinician Unavailable Risk Attending Clinician Unavailable Syd CASTILLOP, R Attending Clinician Pool, Resident Attending Clinician Unavailable 2, Mfm Usg Room Attending Clinician Unavailable Doctor Unassigned, Name Attending Clinician Unavailable Aries SANDRA Attending Clinician Faculty, [facility] Attending Clinician Unavailable Nickolas SANDRA, Cam Attending Clinician Guille Attending Clinician Nadya Wilson Attending Clinician Sharon Vázquez Attending Clinician Sharita Sánchez Attending Clinician Mabel Gunter Attending Clinician Mabel Woods MD Admitting Clinician Dl SANDRA Admitting Clinician Nickolas SANDRA, Cam Admitting Clinician Guille Admitting Clinician Chaparro Jeffrey Admitting Clinician Mariam Bills Admitting Clinician Sharita Sánchez Admitting Clinician Mabel Gunter Admitting Clinician Problems Condition Condition Condition Status Onset Resolution Last Treating Co mments Source Name Details Category Date Date Treatment Clinician Date FALL Diagnosis Active 2015-12-17 Mem oria 12-16 20:51:00 l FALL 00:00: Gerardo 00 Active 12/17/2015 [facility] FAILED Diagnosis Active 2015-12-24 Mem oria ANKLE 12-16 21:57:00 l HARDWARE FAILED 00:00: Jonel n ANKLE 00 HARDWARE Active 12/17/2015 [facility] ANEMIA/DEVAN Diagnosis Active 2015-06-30 Memoria TTING 3-14 11:26:00 l DISORDERS/ 00:00: Jonel n RUPTURED ANEMIA/DEVAN 00 OVARI TTING DISORDERS/ RUPTURED OVARI Active 06/29/2015 [facility] LEFT PILON Diagnosis Active 2015-05-29 Memoria FRACTURE 05-20 21:54:00 l LEFT 00:00: Gerardo PILON 00 FRACTURE Active 05/20/2015 [facility] RUPTURE Diagnosis Active 2015-05-09 Me moria OVARIAN 05-09 06:38:00 l CYST RUPTURE 00:00: [place] OVARIAN 00 CYST Active 05/09/2015 [facility] RUPTURE Diagnosis Active 2015-05-11 [place] mor[place] HEMORRHAGI 05-09 09:58:00 l C OVARIAN RUPTURE 00:00: Herm sara CYST,ABD HEMORRHAGI 00 LIBRADO C OVARIAN CYST,ABD LIBRADO Active 05/09/2015 [facility] TIB FIB Diagnosis Active 2014-042015-04-14 Me moria FRACTURE 18:05:00 l TIB FIB 00:00: Gerardo FRACTURE 00 Active 04/14/2015 [facility] LT TIB/FIB Diagnosis Active 2014-042015-04-22 Memoria FX 21:56:00 l LT 00:00: Gerardo TIB/FIB FX 00 Active 04/14/2015 [facility] CHOLATITHI Diagnosis Active 2012-2012-09-20 Memoria ASIS 5-15 13:56:00 l 00:00: [place] CHOLATITHI 00 ASIS Active 08/29/2012 [facility] Final: Problem 2015-05-29 Memor ia Nondisplac 02:20:59 l ed pilon Final: Jonel n fracture Nondisplac of ed pilon unspecifie fracture d tibia, of initial unspecifie encounter d tibia, for closed initial fracture encounter for closed fracture 05/29/2015 [facility] Cholecysti Problem Resolve 2015-12-23 Memoria tis d 00:16:33 l (disorder) Jonel n Cholecysti tis (disorder) Resolved Problem 12/23/2015 [facility] Glanzmann' Problem Resolve 2015-12-23 Memoria s d 00:16:33 l thrombasth Jonel n enia [facility] (disorder) s thrombasth enia (disorder) Resolved Problem 12/23/2015 [facility] Viral Problem Resolve 2015-12-23 Rafi daniele hepatitis d 00:16:33 l C Viral [place] (disorder) hepatitis C (disorder) Resolved Problem 12/23/2015 [facility] Cholecysti Problem Resolve 2012-09-03 Memoria tis d 20:31:03 l Gerardo Cholecysti tis Resolved Problem 09/03/2012 [facility] Glalizbetzmann Problem Resolve 2012-09-03 M emoria thromboast d 20:31:03 l alfonso Rodriguez thromboast henia Resolved Problem 09/03/2012 [facility] Hepatitis Problem Resolve 2012-09-03 M emoria C d 20:31:03 l Gerardo Hepatitis C Resolved Problem 09/03/2012 [facility] CHOLELITHI Diagnosis Active 2012-09-20 Memoria ASIS NOS 13:56:00 l Gerardo CHOLELITHI ASIS NOS Active [facility] UNSP Diagnosis Active 2015-04-22 Mem oria FRACTURE 21:56:00 l OF SHAFT UNSP [place] OF LEFT FRACTURE TIBIA, IN OF SHAFT OF LEFT TIBIA, IN Active [facility] UNSP Diagnosis Active 2015-04-22 Mem oria FRACTURE 21:56:00 l OF SHAFT UNSP Gerardo OF LEFT FRACTURE FIBULA, I OF SHAFT OF LEFT FIBULA, I Active [facility] UNSPECIFIE Diagnosis Active 2015-06-30 Memoria D OVARIAN 11:26:00 l CYSTS Gerardo UNSPECIFIE D OVARIAN CYSTS Active [facility] ENCNTR FOR Diagnosis Active 2015-05-10 Memoria GENERAL 06:28:00 l ADULT ENCNTR [place] MEDICAL FOR EXAM W/ GENERAL ADULT MEDICAL EXAM W/ Active [facility] MORBID Diagnosis Active 2015-05-10 Mem oria (SEVERE) 06:29:00 l OBESITY MORBID [place] DUE TO (SEVERE) EXCESS CA OBESITY DUE TO EXCESS CA Active [facility] NONDISPLAC Diagnosis Active 2015-05-29 Memoria ED PILON 21:54:00 l FRACTURE [place] OF UNSP NONDISPLAC TIBI ED PILON FRACTURE OF UNSP TIBI Active [facility] ILLNESS, Diagnosis Active 2015-12-24 M emoria UNSPECIFIE 21:57:00 l D ILLNESS, Jonel n UNSPECIFIE D Active [facility] Allergies, Adverse Reactions, Alerts Allergy Allergy Status Severity Reaction(s) Onset Inactive Treating Comm ents Source Name Type Date Date Clinician aspirin aspirin Active Mya Carrillo Iron Iron Active Mya Carrillo NSAIDs NSAIDs Active Mya Carrillo Social History Social Habit Start Date Stop Date Quantity Comments Source Social History 2015-05-20 2015-05-20 [facility] lakisha 23:22:12 23:22:12 Medications Ordered Filled Start Stop Current Ordering Indication Dosage Frequency Signature Comments Components Source Medication Medication Date Date Medication? Clinician (SIG) Name Name 0.3 ML No 30 mg, Memoria Enoxaparin 12-19 SUB-Q, l sodium 100 21:22: Q12H, X 21 H ermann MG/ML 00 day, # 42 Prefilled syr, 0 Syringe Refill(s) [Lovenox] senna 8.6 Yes 17.2 mg = Mem oria mg oral 12-19 2 tab, PO, l tablet 21:12: Bedtime, X Clover nn 00 10 day, # 20 tab, 0 Refill(s) gabapentin Yes 600 mg = 2 M emoria 300 MG Oral 12-19 cap, PO, l Capsule 21:12: Q8Hnow, # Clover nn 00 42 cap, 0 Refill(s) Docusate Yes 100 mg = 1 Mem oria Sodium 100 12-19 cap, PO, l MG Oral 21:12: BID, # 28 Cl[place] nn Capsule 00 cap, 0 Refill(s) gabapentin No Notes: Memor ia 12-19 (Same as: l 19:00: Neurontin) [place] 00 Acetaminoph No Notes: Do M emoria en 325 MG / 12-19 not exceed l Hydrocodone 18:57: 4gm/day of [place] Bitartrate 00 acetaminop 10 MG Oral hen. Tablet (Same as: [[place] 10/325] 325/10) Acetaminoph No Notes: Rafi daniele en 325 MG / 12-19 (Same as: l Hydrocodone 18:21: [place] Clover nn Bitartrate 00 325/5) Do 5 MG Oral not exceed Tablet 4gm/day of [[place] acetaminop 5/325] hen. Acetaminoph No Notes: Rafi daniele en 325 MG / 12-19 (Same as: l Hydrocodone 18:19: [place] Cl[place] nn Bitartrate 00 325/5) Do 5 MG Oral not exceed Tablet 4gm/day of [[place] acetaminop 5/325] hen. Calcium No Notes: Memoria Gluconate 12-19 WASTE: F/P l 12:46: - Sink; E [place] 00 - Municipal Trash Bin sodium No 250 mL, Memoria chloride 12-19 Rate: On l 0.9% INJ 12:44: call for Clover nn 250 mL 00 use with blood product administra tion, Dosing Weight 68.182, kg, Route: IV, Total Volume: 250, Start Date: 12/20/15 7:44:00 CDT, Duration: 30 day, Stop date: 01/19/16 7:43:00 CDT, Replace Every: 24 hr Benzocaine No Notes: Memor ia 15 MG / 12-19 Cepacol l Menthol 3.6 10:36: lozenges He rmann MG Lozenge 00 Dispense 1 [Cepacol box = 16 Sore Throat lozenges Pain Relief (Same As: 15/3.6] Cepacol Lozenges) Oxycodone No Notes: Memori a Hydrochlori 12-19 (Same as: l de 5 MG 02:15: Roxicodone Herm sara Oral Tablet 00 ) heparin No 5,000 Memoria sodium, 12-19 unit, l porcine 02:00: Route: Gerardo 2500 UNT/ML 00 SUB-Q, Injectable Drug form: Solution INJ, Q12H, Dosing Weight 68.182, kg, Start date: 12/19/15 21:00:00 CDT, Duration: 30 day, Stop date: 01/18/16 9:00:00 CDT Tramadol No Notes: Not Mem oria 12-19 to exceed l 01:52: 400mg/day. [place] (Same As: Ultra) Celebrex No Notes: Memoria 12-18 NSAID. l 21:25: Please [place] check indication . Not for seizure. (Same As: CeleBREX) ferrous No Notes: Memoria sulfate 12-18 Give with l 19:30: food. "Do [place] Not Crush" Calcium No 500 mg, 1 Memor ia Gluconate 12-18 tab, l 500 MG Oral 18:00: Route: PO, [place] Tablet 00 Drug form: TAB, TID, Dosing Weight 68.182, kg, Start date: 12/19/15 13:00:00 CDT, Duration: 30 day, Stop date: 01/18/16 9:00:00 CDT Marinol No Notes: Memoria 12-18 (Same as: l 17:00: Marinol) [place] Non-Formul rafael Drug. sennosides, No Notes: Rafi daniele FDC 12-18 (Same as: l 02:00: Senokot) [place] ceFAZolin No Notes: Memori a (SCIP) + 12-17 (Same As: l sodium 23:00: Ancef, Gerardo chloride 00 Kefzol) 0.9% INJ Cefazolin 100 mL FOR IV SET ONLY MEDICATION WASTE Product Size: 1000 mg Product Wasted: ___ mg Klonopin No Notes: Memoria 12-17 (Same As: l 22:00: KlonoPIN) Gerardo 00 Calcium No 500 mg, 1 Memor ia Gluconate 12-17 tab, l 500 MG Oral 21:40: Route: PO, Gerardo Tablet 00 Drug form: TAB, ONCE, Dosing Weight 68.182, kg, Start date: 12/18/15 16:40:00 CDT, Stop date: 12/18/15 16:40:00 CDT Potassium No Notes: Memori a Chloride 20 12-17 (Same as: l MEQ 21:32: K-Dur 20) Gerardo Extended 00 "Do Not Release Crush" Tablet With food and full glass of water remove No Notes: Memoria patch 12-17 Remove l 17:00: patch 12 [place] 00 hours after applicatio n each day. Hydromorpho No Notes: Rafi daniele ne 12-17 Same as: l 16:55: Dilaudid Flumazenil No Notes: Memor ia 12-17 (Same as: l 16:55: Romazicon) Oxycodone No Notes: Memori a 12-17 (Same as: l 16:55: Roxicodone ) Ondansetron No Notes: Rafi daniele 12-17 (Same as: l 16:55: Zofran) MEDICATION WASTE Product Size: 4 mg Product Wasted: ___ mg Naloxone No Notes: Memoria 12-17 Same as l 16:55: Narcan Gerardo Amicar No Notes: Memoria 12-17 (Same as: l 16:00: Amicar) Ancef No 2 gm, Memoria 12-17 Route: l 15:22: IVPB, Gerardo 00 ONCE, Dosing Weight 68.182, kg, Start date: 12/18/15 10:22:00 CDT, Duration: 1 doses or times, Stop date: 12/18/15 10:22:00 CDT, Surgical Prophylaxi s Only; For patients < 120 kg Klonopin Yes PO, 0 Memoria 12-17 Refill(s) l 14:03: Gerardo 00 POLYETHYLEN No Notes: Rafi daniele E GLYCOL 12-17 Dissolve l 3350 14:00: in 8 oz of [place] water or juice. (Same as: Miralax) Docusate No Notes: Memoria 12-17 (Same as: l 14:00: Colace) Gerardo (Do Not Crush) Streptococc No Notes: Rafi daniele us 12-17 Lightly l pneumoniae 14:00: roll vial He rmann serotype 1 00 (DO NOT capsular SHAKE) antigen before diphtheria administra [id number] tion. protein (Same as: conjugate Prevnar vaccine / 13) Streptococc us pneumoniae serotype 14 capsular antigen diphtheria [id number] protein conjugate vaccine / Streptococc us pneumoniae serotype 18C capsular antigen d Klonopin No Notes: Memoria 12-17 (Same As: l 07:00: KlonoPIN) Gerardo 00 Potassium No Notes: Memori a Chloride 20 12-17 (Same as: l MEQ 06:13: K-Dur 20) Gerardo Extended "Do Not Release Crush" Tablet With food and full glass of water Calcium No Notes: Memoria Gluconate 12-17 WASTE: F/P l 06:13: - Sink; E [place] - Municipal Trash Bin gabapentin No Notes: Memor ia 12-17 (Same as: l 05:00: Neurontin) Gerardo 00 Lidocaine No Notes: Memori a Hydrochlori 12-17 Apply only l de 0.05 05:00: once for Jonel n MG/MG 00 up to 12 Transdermal hours in a Patch 24-hour [Lidoderm] period (12 hours on and 12 hours off). (Same as: Lidoderm) "Remove old patch before applicatio n of new patch" Dilaudid No Notes: Memoria 12-17 Same as: l 04:26: Dilaudid Ondansetron No Notes: Rafi daniele 12-17 (Same as: l 04:11: Zofran) MEDICATION WASTE Product Size: 4 mg Product Wasted: ___ mg Methocarbam No Notes: Rafi daniele ol 12-17 (Same l 04:11: as:Robaxin ) Morphine No Notes: Memoria 12-17 (Same l 04:11: as:MORPhin Gerardo 00 e Sulfate) Oxycodone No Notes: Memori a Hydrochlori 12-17 (Same as: l de 5 MG 04:11: Roxicodone Herm sara Oral Tablet 00 ) Tramadol No Notes: Not Mem oria 12-17 to exceed l 04:11: 400mg/day. [place] 00 (Same As: Ultram) Melatonin No Notes: Memori a 12-17 (Same as: l 04:11: Melatonin) Gerardo 00 Acetaminoph No Notes: Max Memoria en 12-17 acetaminop l 04:11: hen 4000 Gerardo 00 mg/day (4 gm/day). (Same as: Tylenol Extra Strength) Sodium No 1,000 mL, Memori a Chloride 12-17 1,000 l 0.154 01:59: ml/hr, Gerardo MEQ/ML 00 Infuse Injectable Over: 1 Solution hr, Route: IV, ONCE, Priority: STAT, Dosing Weight 65.909 kg, Start date: 12/17/15 20:59:00 CDT, Duration: 1 doses or times, Stop date: 12/17/15 20:59:00 CDT Dilaudid No Notes: Memoria 12-17 Same as: l 01:58: Dilaudid [place] 00 Zofran No Notes: Memoria 12-17 (Same as: l 01:23: Zofran) Gerardo 00 MEDICATION WASTE Product Size: 4 mg Product Wasted: 0 mg Morphine No Notes: Memoria 12-17 (Same l 01:23: as:MORPhin Gerardo 00 e Sulfate) 6-Aminocapr Yes 3,000 mg = Memoria oic Acid 3-16 3 tab, PO, l 1000 MG 12:09: Q8H, Take Cl[place] nn Oral Tablet 00 with [Amicar] menstrual cycle, # 90 tab, 1 Refill(s) Medroxyprog No Notes: Rafi daniele esterone 3-16 (Same as: l 12:08: Depo-Prove Gerardo 00 ra) This is NOT Depo-SubQ Provera 104 For IM use only MEDICATION WASTE Product Size: 150 mg Product Wasted: ___ mg ferrous Yes 325 mg = 1 Rafi daniele sulfate 325 3-16 tab, PO, l MG Oral 12:03: TID, Gerardo Tablet 00 please take with vitamin c (pills or food containing Vit C), # 270 tab, 1 Refill(s) tramadol Yes 100 mg = 2 Mem oria hydrochlori 3-16 tab, PO, l de 50 MG 12:03: Q6H, PRN Cl[place] nn Oral Tablet 00 Pain Score 4-6, # 30 tab, 0 Refill(s) Acetaminoph Yes 2 tab, PO, Memoria en 300 MG / 3-16 Q6H, PRN l Codeine 12:03: Pain Score Herm sara Phosphate 00 6-10, # 50 30 MG Oral tab, 0 Tablet Refill(s) [Tylenol with Codeine #3] Acetaminoph No Notes: Do M emoria en 300 MG / 3-16 not exceed l Codeine 01:46: 4gm/day of Herm sara Phosphate 00 acetaminop 30 MG Oral hen. Tablet (Same as: [Tylenol Tylenol with with Codeine #3] Codeine # 3) Tylenol No Notes: Do Memor ia 3-15 not exceed l 21:30: 4 gm/day. Gerardo 00 (Same as: Tylenol) 24 HR No Notes: Not Memori a tramadol 3-15 to exceed l hydrochlori 21:00: 400mg/day. Gerardo de 100 MG 00 (Same As: Extended Ultram) Release Tablet Acetaminoph No Notes: Do M emoria en 300 MG / 3-15 not exceed l Codeine 19:07: 4gm/day of Herm sara Phosphate 00 acetaminop 30 MG Oral hen. Tablet (Same as: [Tylenol Tylenol with with Codeine #3] Codeine # 3) Acetaminoph No Notes: Do M emoria en 300 MG / 3-15 not exceed l Codeine 19:06: 4gm/day of Herm sara Phosphate 00 acetaminop 30 MG Oral hen. Tablet (Same as: [Tylenol Tylenol with with Codeine #3] Codeine # 3) Tramadol No Notes: Not Mem oria 3-15 to exceed l 19:05: 400mg/day. [place] 00 (Same As: Ultram) Acetaminoph No Notes: Rafi daniele en 325 MG / 3-15 (Same as: l Hydrocodone 18:32: [place] Clover nn Bitartrate 00 325/5) Do 5 MG Oral not exceed Tablet 4gm/day of [[place] acetaminop 5/325] hen. Zofran No Notes: Memoria 3-15 (Same as: l 12:13: Zofran) [place] 00 MEDICATION WASTE Product Size: 4 mg Product Wasted: ___ mg Ofirmev No Notes: Memoria 3-15 Infuse l 04:14: over 15 Gerardo 00 minutes Do not exceed 4gm/day of acetaminop hen MEDICATION WASTE Product Size: 1000 mg Product Wasted: ___ mg Benadryl No Notes: Memoria 3-15 (Same as: l 03:55: Benadryl) [place] 00 Clonazepam No Notes: Memor ia 3-15 (Same As: l 03:01: KlonoPIN) Gerardo 00 Amicar No Notes: Memoria 3-15 (Same as: l 03:00: Amicar) Clonazepam No 4 mg, Memori a 3-15 Route: PO, l 02:58: TID, Gerardo 00 Dosing Weight 81.818, kg, Start date: 06/29/15 21:58:00, Duration: 30 day, Stop date: 07/29/15 17:00:00 Morphine No Notes: Memoria 3-14 (Same l 21:31: as:MORPhin Gerardo 00 e Sulfate) Dilaudid No Notes: Memoria 3-14 Same as: l 21:30: Dilaudid Sodium No 250 mL, Memoria Chloride 3-14 Rate: On l 0.9% 20:00: call for Gerardo (titrate) 00 use with 250 mL blood product administra tion, Dosing Weight 81.818, kg, Route: IV, Total Volume: 250, Start Date: 06/29/15 15:00:00, Duration: 1 doses or times, Stop date: 06/30/15 14:59:00, Replace Every: 24 hr Morphine 2015-0 No 6 mg, Memoria 3-14 Route: l 19:53: IVP, ONCE, [place] 00 Dosing Weight 81.818, kg, Start date: 06/29/15 14:53:00, Stop date: 06/29/15 14:53:00 Sodium 2015-0 No 1,000 mL, Memori a Chloride 06-28 1,000 l 0.154 17:42: ml/hr, Gerardo MEQ/ML 00 Infuse Injectable Over: 1 Solution hr, Route: IV, 1,000, Drug form: INJ, ONCE, Priority: STAT, Dosing Weight 81.818 kg, Start date: 06/29/15 12:42:00, Duration: 1 doses or times, Stop date: 06/29/15 12:42:00 Isolyte S 2015-0 No Notes: Memori a PH 7.4 -14 (Same as: l 1,000 mL 17:24: Isolyte S Herm sara 00 PH 7.4) Morphine 2015- No 6 mg, Memoria 06-28 Route: l 16:17: IVP, Drug [place] 00 form: INJ, ONCE, Dosing Weight 81.818, kg, Priority: STAT, Start date: 06/29/15 11:17:00, Stop date: 06/29/15 11:17:00 Zofran 2015-0 No Notes: Memoria -14 (Same as: l 13:21: Zofran) Gerardo 00 MEDICATION WASTE Product Size: 4 mg Product Wasted: ___ mg Morphine 2015- No 6 mg, Memoria 06-28 Route: l 13:21: IVP, Drug [place] 00 form: INJ, ONCE, Dosing Weight 81.818, kg, Priority: STAT, Start date: 06/29/15 8:21:00, Stop date: 06/29/15 8:21:00 Acetaminoph 2015- No 1 tab, Rafi daniele en 325 MG / 06-28 Route: PO, l Hydrocodone 13:19: Drug Form: Gerardo Bitartrate 00 TAB, 10 MG Oral Dosing Tablet Weight [[place] 81.818, 10/325] kg, ONCE, STAT, Start date: 06/29/15 8:19:00, Stop date: 06/29/15 8:19:00 Acetaminoph No Notes: Rafi danieel en 325 MG / 3-14 (Same as: l Hydrocodone 13:05: [place] Clover nn Bitartrate 00 325/5) Do 5 MG Oral not exceed Tablet 4gm/day of [[place] acetaminop 5/325] hen. Dilaudid No 1 mg, Memoria 3-14 Route: l 11:30: IVP, ONCE, Gerardo 00 Dosing Weight 81.818, kg, Priority: STAT, Start date: 06/29/15 6:30:00, Stop date: 06/29/15 6:30:00 Acetaminoph Yes 1 tab, PO, Memoria en 325 MG / -09 Q4H, PRN l Hydrocodone 16:38: Pain Score [place] Bitartrate 00 6-10, # 40 10 MG Oral tab, 0 Tablet Refill(s) [[place] 10/325] Acetaminoph No Notes: Do M emoria en 325 MG / 2-09 not exceed l Hydrocodone 05:37: 4gm/day of [place] Bitartrate 00 acetaminop 10 MG Oral hen. Tablet (Same as: [[place] 10/325] 325/10) Acetaminoph No Notes: Do M emoria en 325 MG / 2-08 not exceed l Hydrocodone 18:00: 4gm/day of Gerardo Bitartrate 00 acetaminop 10 MG Oral hen. Tablet (Same as: [[place] 10/325] 325/10) Acetaminoph No Notes: Do M emoria en 325 MG / 2-08 not exceed l Hydrocodone 16:43: 4gm/day of [place] Bitartrate 00 acetaminop 10 MG Oral hen. Tablet (Same as: [[place] 10/325] 325/10) Methadone No Notes: Memori a 2-08 (Same as: l 03:00: Dolophine) Gerardo 00 Amicar No Notes: Memoria 2-07 (Same as: l 22:00: Amicar) [place] Acetaminoph No Notes: Rafi daniele en 325 MG / 2 (acetamino l butalbital 18:57: phen-butal H ermann 50 MG / 00 bital-caff Caffeine 40 eine MG Oral 325-50-40m Capsule g) Do not exceed 4 gm/day of acetaminop hen. (Same as: Esgic, Fioricet) ferric No Notes: Memoria oxide, 2-07 Each 5ml l saccharated 18:10: contains He rmann 00 100mg elemental iron. Mix with NS (Same as:Venofer ) Administer IV only. MEDICATION WASTE Product Size: 100 mg Product Wasted: ___ mg Methadone No Notes: Memori a 2-06 (Same as: l 22:00: Dolophine) [place] ferric No Notes: Memoria oxide, 2-06 Each 5ml l saccharated 18:09: contains He rmann 00 100mg elemental iron. Mix with NS (Same as:Venofer ) Administer IV only. MEDICATION WASTE Product Size: 100 mg Product Wasted: ___ mg remove No Notes: Memoria patch 2-06 Remove l 12:00: patch 12 [place] 00 hours after applicatio n each day. Methadone No Notes: Memori a 2-06 (Same as: l 08:41: Dolophine) [place] Methadone No Notes: Memori a 2-06 (Same as: l 04:00: Dolophine) [place] 00 Lidocaine No Notes: Memori a Hydrochlori 2-06 Apply only l de 0.05 00:00: once for Jonel n MG/MG 00 up to 12 Transdermal hours in a Patch 24-hour period (12 hours on and 12 hours off). (Same as: Lidoderm) "Remove old patch before applicatio n of new patch" Methadone No Notes: Memori a 2-05 (Same as: l 23:08: Dolophine) Gerardo Acetaminoph No Notes: Do M emoria en 325 MG / 2-05 not exceed l Hydrocodone 16:24: 4gm/day of Gerardo Bitartrate 00 acetaminop 10 MG Oral hen. Tablet (Same as: [[place] 10/325] 325/10) Tetrahydroc No 5 mg, Memor ia annabinol 2-05 Route: PO, l 16:22: Drug form: [place] 00 CAP, Q12H, Dosing Weight 72.727, kg, Priority: NOW, Start date: 05/22/15 10:22:00, Duration: 30 day, Stop date: 06/21/15 9:00:00 sennosides, No Notes: Rafi daniele FDC 2-05 (Same as: l 03:00: Senokot) Gerardo Docusate No Notes: Memoria 2-05 (Same as: l 03:00: Colace) [place] (Do Not Crush) Trazodone No Notes: Memori a 2-05 (Same As: l 03:00: Desyrel) [place] Tetrahydroc No Notes: Rafi daniele annabinol 2-05 (Same as: l 03:00: Marinol) [place] Non-Formul rafael Drug. Dilaudid No Notes: Memoria 2-05 Same as: l 00:56: Dilaudid [place] 00 Ancef + No Notes: Memoria Sodium 2-05 (Same As: l Chloride 00:00: AncefGerardo 0.9% IV 100 00 Kefzol) mL Cefazolin FOR IV SET ONLY MEDICATION WASTE Product Size: 1000 mg Product Wasted: ___ mg Fentanyl No 50 kg Memoria 2-04 l 23:51: Gerardo 00 Oxycodone No Notes: Memori a Hydrochlori 2-04 (Same as: l de 1 MG/ML 23:43: 'Roxicodon H ermann Oral 00 e) Solution Acetaminoph No Notes: Max Memoria en 2-04 acetaminop l 23:26: hen 4000 Gerardo 00 mg/day (4 gm/day). (Same as: Tylenol Extra Strength) Hydromorpho No Notes: Rafi daniele ne 2-04 Same as: l 23:24: Dilaudid Gerardo 00 Methadone No Notes: Memori a 2-04 (Same as: l 23:23: Dolophine) Gerardo Oxycodone No Notes: Memori a Hydrochlori 2-04 (Same as: l de 5 MG 23:23: Roxicodone Herm sara Oral Tablet ) Fentanyl No 72.727 Memoria 2-04 microgram, l 23:14: Route: IV, [place] Drug form: INJ, ONCE, Dosing Weight 72.727, kg, PRN Pain Score 7-10, < 50 kg, Start date: 05/21/15 17:14:00, Pediatric Dosing; For procedure Ondansetron No Notes: Rafi daniele 2-04 (Same as: l 23:02: Zofran) [place] 00 MEDICATION WASTE Product Size: 4 mg Product Wasted: ___ mg Naloxone No Notes: Memoria 2-04 Same as l 23:02: Narcan Gerardo Flumazenil No Notes: Memor ia 2-04 (Same as: l 23:02: Romazicon) Gerardo 00 Hydromorpho No Notes: Rafi daniele ne 2-04 Same as: l 23:02: Dilaudid Gerardo Miralax No Notes: Memoria 2-04 Dissolve l 15:00: in 8 oz of [place] 00 water or juice. (Same as: Miralax) Robaxin No Notes: Memoria 2-04 (Same l 14:00: as:Robaxin [place] 00 ) Tramadol No Notes: Not Mem oria 2-04 to exceed l 14:00: 400mg/day. Gerardo 00 (Same As: Ultram) Ondansetron No Notes: Rafi daniele 2-04 (Same as: l 13:55: Zofran) [place] MEDICATION WASTE Product Size: 4 mg Product Wasted: ___ mg Clonazepam No Notes: Memor ia 2-04 (Same As: l 12:00: KlonoPIN) [place] gabapentin No Notes: Memor ia 600 MG Oral 2-04 (Same as: l Tablet 06:00: Neurontin) Clover nn Amicar No Notes: Memoria 2-04 (Same as: l 06:00: Amicar) Gerardo 00 Clonazepam No Notes: Memor ia 2-04 (Same As: l 03:00: KlonoPIN) [place] 00 Acetaminoph No Notes: Rafi daniele en 325 MG / 2-04 (acetamino l butalbital 02:55: phen-butal H ermann 50 MG / 00 bital-caff Caffeine 40 eine MG Oral 325-50-40m Capsule g) Do not exceed 4 gm/day of acetaminop hen. (Same as: Esgic, Fioricet) acetaminoph No Notes: Do M emoria en-hydrocod 2-04 not exceed l one 325 02:16: 4gm/day of Herm sara mg-10 mg 00 acetaminop oral tablet hen. (Same as: [place] 325/10) acetaminoph No Notes: Do M emoria en-hydrocod 2-04 not exceed l one 325 02:15: 4gm/day of Herm sara mg-10 mg 00 acetaminop oral tablet hen. (Same as: [place] 325/10) acetaminoph No Notes: Do M emoria en-hydrocod 2-04 not exceed l one 325 02:11: 4gm/day of Herm sara mg-10 mg 00 acetaminop oral tablet hen. (Same as: [place] 325/10) Acetaminoph No Notes: Do M emoria en 325 MG / 2-04 not exceed l Hydrocodone 02:00: 4gm/day of [place]ardo Bitartrate 00 acetaminop 10 MG Oral hen. Tablet (Same as: [[place] 10/325] 325/10) Enoxaparin No Notes: Memor ia 2-04 (Same as: l 00:00: Lovenox) [place] 00 LR IV 1,000 No 1,000 mL, M emoria mL 2- Rate: 75 l 20:09: ml/hr, Gerardo 00 Infuse over: 13.3 hr, Route: IV, Dosing Weight 77.273 kg, Total Volume: 1,000, Start date: 05/20/15 14:09:00, Duration: 30 day, Stop date: 06/19/15 14:08:00 Acetaminoph No Notes: Rafi daniele en - Infuse l 20:07: over 15 Gerardo 00 minutes Do not exceed 4gm/day of acetaminop hen MEDICATION WASTE Product Size: 1000 mg Product Wasted: ___ mg Oxycodone No Notes: Memori a Hydrochlori 05-20 (Same as: l de 5 MG 20:07: Roxicodone Herm sara Oral Tablet ) gabapentin No Notes: Memor ia 03 (Same as: l 20:07: Neurontin) [place] Docusate No Notes: Memoria 203 (Same as: l 20:03: Colace) [place] (Do Not Crush) Diphenhydra No Notes: Rafi daniele mine 05-20 (Same as: l 20:03: Benadryl) Ondansetron No Notes: Rafi daniele -03 (Same as: l 20:03: Zofran) [place] MEDICATION WASTE Product Size: 4 mg Product Wasted: ___ mg Acetaminoph Yes 1 - 2 tab, Memoria en 300 MG / 1-24 PO, Q4H, l Codeine 22:40: PRN Pain, Clover nn Phosphate 00 X 3 day, # 30 MG Oral 20 tab, 0 Tablet Refill(s) [Tylenol with Codeine #3] 6-Aminocapr Yes See Memori a oic Acid 1-24 Instructio l 1000 MG 15:54: ns, 3 tab Clover nn Oral Tablet 18 PO q6-8h [Amicar] PRN for bleeding., # 60 tab, 0 Refill(s) 24 HR No 100 mg = 1 Memori a tramadol 1-24 tab, PO, l hydrochlori 15:48: Daily, PRN Gerardo de 100 MG 00 pain, # 60 Extended tab, 0 Release Refill(s) Tablet Amicar No Notes: Memoria 1-24 (Same as: l 14:00: Amicar) [place] Melatonin No Notes: Memori a 1-24 (Same as: l 02:38: Melatonin) [place] Acetaminoph No Notes: Do M emoria en 05-09 not exceed l 23:00: 4 gm/day. (Same as: Tylenol) Diphenhydra No Notes: Rafi daniele mine 05-09 (Same as: l 23:00: Benadryl) Sodium No 250 mL, Memoria Chloride 05-09 Rate: On l 0.9% 22:47: call for Gerardo (titrate) 00 use with 250 mL blood product administra tion, Dosing Weight 77.273, kg, Route: IV, Total Volume: 250, Start Date: 05/09/15 16:47:00, Duration: 30 day, Stop date: 06/08/15 16:46:00, Replace Every: 24 hr Clonazepam No Notes: Memor ia 05-09 (Same As: l 19:00: KlonoPIN) Ofirmev No Notes: Memoria 05-09 Infuse l 18:00: over 15 minutes Do not exceed 4gm/day of acetaminop hen MEDICATION WASTE Product Size: 1000 mg Product Wasted: ___ mg Methadone Yes PO, 0 Memoria 05-09 Refill(s) l 16:21: Clonazepam Yes PO, TID, 0 M emoria 05-09 Refill(s) l 16:21: Acetaminoph Yes 1-2 tab, Me moria en 325 MG / 23 PO, Q4-6H, l Hydrocodone 16:21: PRN Pain, H ermann Bitartrate 00 # 30 tab, 10 MG Oral 0 Tablet Refill(s) [[place] 10/325] Dilaudid No Notes: Memoria 23 Same as: l 14:37: Dilaudid D5LR 1,000 No 1,000 mL, Me moria mL 05-09 Rate: 125 l 14:36: ml/hr, Infuse over: 8 hr, Route: IV, Dosing Weight 77.273 kg, Total Volume: 1,000, Start date: 05/09/15 8:36:00, Duration: 30 day, Stop date: 06/08/15 8:35:00 Dilaudid No Notes: Memoria 05-09 Same as: l 12:39: Dilaudid Ondansetron No Notes: Rafi daniele 05-09 (Same as: l 12:28: Zofran) MEDICATION WASTE Product Size: 4 mg Product Wasted: ___ mg Morphine No Notes: Memoria 05-09 (Same l 12:28: as:MORPhin e Sulfate) tramadol Yes 100 mg = 2 Mem oria hydrochlori 04-18 tab, PO, l de 50 MG 22:09: Q6H, X 7 Clover nn Oral Tablet day, # 50 tab, 0 Refill(s) methocarbam Yes 1,000 mg = Memoria ol 500 mg 02 2 tab, PO, l oral tablet 22:09: Q8H, X 14 H ermann day, # 80 tab, 0 Refill(s) gabapentin Yes 600 mg = 1 M emoria 600 MG Oral 04-18 tab, PO, l Tablet 22:09: Q8H, # 90 Jonel n 00 tab, 0 Refill(s) Acetaminoph Yes 1-2 tab, Me moria en 325 MG / 04-18 PO, Q4H, l Hydrocodone 22:09: PRN for Her wilkes Bitartrate 00 pain, X 5 10 MG Oral day, # 30 Tablet tab, 0 [[place] Refill(s) 10/325] 6-Aminocapr Yes See Memori a oic Acid 04-18 Instructio l 1000 MG 22:09: ns, 3 tab Clover nn Oral Tablet 00 PO q6-8h [Amicar] PRN for bleeding., # 60 tab, 0 Refill(s) Acetaminoph No Notes: Do M emoria en 325 MG / 04-18 not exceed l Hydrocodone 17:44: 4gm/day of [place] Bitartrate 00 acetaminop 10 MG Oral hen. Tablet (Same as: [[place] 10/325] 325/10) Methadone No Notes: Memori a 04-18 (Same as: l 02:00: Dolophine) [place] 00 Miralax No Notes: Memoria 1- Dissolve l 23:00: in 8 oz of Gerardo water or juice. (Same as: Miralax) Trazodone No Notes: Memori a Hydrochlori 04-17 (Same As: l de 50 MG 03:00: Desyrel) Clover Oral Tablet 00 gabapentin 2014-04 No Notes: Memor ia 2 (Same as: l 22:00: Neurontin) Methadone 2014-04 No Notes: Memori a 2-31 (Same as: l 22:00: Dolophine) Robaxin 2014-04 No Notes: Memoria 2- (Same l 19:04: as:Robaxin ) Tetrahydroc 2014-04 No Notes: Rafi daniele annabinol (Same as: l 19:00: Marinol) Non-Formul rafael Drug. Acetaminoph 2014-04 No Notes: Max Memoria en acetaminop l 18:00: hen 4000 Gerardo 00 mg/day (4 gm/day). (Same as: Tylenol Extra Strength) Methadone 2014-04 No Notes: Memori a 2- (Same as: l 17:30: Dolophine) Dilaudid 2014-04 No 1 mg, Memoria Route: l 11:06: IVP, ONCE, Dosing Weight 81.818, kg, Priority: STAT, Start date: 04/16/15 5:06:00, Stop date: 04/16/15 5:06:00 Restoril 2014-04 No Notes: Memoria 2-31 (Same As: l 03:16: Restoril) sennosides, 2014-04 No Notes: Rafi daniele FDC 2 (Same as: l 03:00: Senokot) Ancef + 2014-04 No Notes: Memoria Sodium 2-30 (Same As: l Chloride 22:00: Ancef, [place] 0.9% IV 100 00 Kefzol) mL Cefazolin FOR IV SET ONLY MEDICATION WASTE Product Size: 1000 mg Product Wasted: ___ mg Acetaminoph 2014-04 No 1 tab, PO, Memoria en 325 MG / 2-30 Q4H, PRN l Hydrocodone 20:03: for pain He rmann Bitartrate 00 10 MG Oral Tablet [[place] 10/325] Tramadol 2014-04 No 100 mg, Memori a 2-30 Route: PO, l 15:05: Drug form: Gerardo 00 TAB, ONCE, Dosing Weight 81.818, kg, PRN Pain Score 4-6, Start date: 04/15/15 9:05:00 Ondansetron 2014-04 No Notes: Rafi daniele 2-30 (Same as: l 15:05: Zofran) MEDICATION WASTE Product Size: 4 mg Product Wasted: ___ mg Hydromorpho 2014-04 No Notes: Rafi daniele ne 2-30 Same as: l 15:05: Dilaudid Oxycodone 2014-04 No Notes: Memori a Hydrochlori 2-30 (Same as: l de 1 MG/ML 15:05: 'Roxicodon H ermann Oral 00 e) Solution Docusate 2014-04 No Notes: Memoria 2-30 (Same as: l 15:00: Colace) [place] 00 (Do Not Crush) Ancef 2014-04 No 2 gm, Memoria 2-30 Route: IV, l 13:49: ONCE, [place] 00 Dosing Weight 81.818, kg, Start date: 04/15/15 7:49:00, Duration: 1 doses or times, Stop date: 04/15/15 7:49:00 Amicar 2014-04 No 1 gm, PO, Memori a 2-30 Q6H, 0 l 06:36: Refill(s) Dilaudid 2014-04 No Notes: Memoria 2-30 Same as: l 06:14: Dilaudid Tramadol 2014-04 No Notes: Not Mem oria 2-30 to exceed l 06:00: 400mg/day. [place] 00 (Same As: Ultram) Acetaminoph 2014-04 No Notes: Rafi daniele en 2-30 Infuse l 06:00: over 15 minutes Do not exceed 4gm/day of acetaminop hen MEDICATION WASTE Product Size: 1000 mg Product Wasted: ___ mg gabapentin 2014-04 No Notes: Memor ia 2-30 (Same as: l 06:00: Neurontin) [place] 00 Diphenhydra 2014-04 No Notes: Rafi daniele mine 2-30 (Same as: l 05:45: Benadryl) [place] 00 Oxycodone 2014-04 No Notes: Memori a Hydrochlori 2-30 (Same as: l de 5 MG 05:45: Roxicodone Herm sara Oral Tablet ) Morphine 2014-04 No Notes: Memoria 2-30 (Same l 05:45: as:MORPhin [place] 00 e Sulfate) Ondansetron 2014-04 No Notes: Rafi daniele 2-30 (Same as: l 05:45: Zofran) [place] 00 MEDICATION WASTE Product Size: 4 mg Product Wasted: ___ mg Ketamine 2014-04 No 20 mg, Memoria 2-30 Route: IV, l 03:08: ONCE, Dosing Weight 81.818, kg, Start date: 04/14/15 21:08:00, Stop date: 04/14/15 21:08:00 Propofol 2014-04 No 20 mg, Memoria 2-30 Route: IV, l 03:07: ONCE, Dosing Weight 81.818, kg, Start date: 04/14/15 21:07:00, Stop date: 04/14/15 21:07:00 Ketamine 2014-04 No 20 mg, Memoria 2-30 Route: IV, l 03:05: ONCE, Dosing Weight 81.818, kg, Start date: 04/14/15 21:05:00, Stop date: 04/14/15 21:05:00 Propofol 2014-04 No 20 mg, Memoria 2-30 Route: IV, l 03:05: ONCE, Dosing Weight 81.818, kg, Start date: 04/14/15 21:05:00, Stop date: 04/14/15 21:05:00 Tylenol 2014-04 No Notes: Memoria 2-30 Infuse l 02:34: over 15 [place] 00 minutes Do not exceed 4gm/day of acetaminop hen MEDICATION WASTE Product Size: 1000 mg Product Wasted: ___ mg Dilaudid 2014-04 No 0.5 mg, Memori a 2-30 Route: l 02:34: IVP, ONCE, Dosing Weight 81.818, kg, Priority: STAT, Start date: 04/14/15 20:34:00, Stop date: 04/14/15 20:34:00 Propofol 2014-04 No 80 mg, Memoria 2-30 Route: l 02:33: IVP, ONCE, Dosing Weight 81.818, kg, Priority: STAT, Start date: 04/14/15 20:33:00, Stop date: 04/14/15 20:33:00 Ketamine 2014-04 No 80 mg, Memoria 2-30 Route: l 02:32: IVP, ONCE, Dosing Weight 81.818, kg, Priority: STAT, Start date: 04/14/15 20:32:00, Stop date: 04/14/15 20:32:00 Fentanyl 2014-04 No 100 Memoria 2-30 microgram, l 02:32: Route: IV, [place] ONCE, Dosing Weight 81.818, kg, Start date: 04/14/15 20:32:00, Stop date: 04/14/15 20:32:00 Amicar 2014-04 No Notes: Memoria 2-30 (Same as: l 02:30: Amicar) [place] Dilaudid 2014-04 No 1 mg, Memoria 2-30 Route: l 01:41: IVP, ONCE, Dosing Weight 81.818, kg, Priority: STAT, Start date: 04/14/15 19:41:00, Stop date: 04/14/15 19:41:00 Acetaminoph 2014-04 No 1 tab, Rafi daniele en 325 MG / Route: PO, l Hydrocodone 23:28: Drug Form: [place] Bitartrate 00 TAB, 10 MG Oral Dosing Tablet Weight [[place] 81.818, 10/325] kg, ONCE, STAT, Start date: 04/14/15 17:28:00, Stop date: 04/14/15 17:28:00 normal 2014-04 No 1,000 mL, Memori a saline 0.9% Rate: 100 l IV 1,000 mL 23:28: ml/hr, Herm Infuse over: 10 hr, Route: IV, Dosing Weight 81.818 kg, Total Volume: 1,000, Start date: 04/14/15 17:28:00, Duration: 30 day, Stop date: 05/14/15 17:27:00 Saline 2014-04 No Notes: Memoria Flush 0.9% 2-29 (Same as: l 22:59: BD Posiflush) Fentanyl 2014-04 No 100 Memoria 2-29 microgram, l 22:54: Route: IVP, ONCE, Dosing Weight 81.818, kg, Priority: STAT, Start date: 04/14/15 16:54:00, Stop date: 04/14/15 16:54:00 aminocaproi Yes Steff Sanchez 3 gm, 12 Memoria c acid 1.25 5-17 Holihan mL, PO, l g/5 mL oral 21:53: Q6H, 1 mL, Gerardo syrup 06 Substituti on Allowed, SYRP Colace 100 Yes Steff Sanchez 100 mg, 1 Memoria mg oral 5-17 [place]ihan cap, PO, l capsule 21:53: BID, 30 [place] 00 cap, Substituti on Allowed, CAP [place] Yes Steff Sanchez 1 tab, PO, Memoria 10/325 oral 5-17 [place]ihan Q4H, PRN, l tablet 21:52: 30 tab, Gerardo 55 Pain, Substituti on Allowed, Maintenanc e, TAB Sodium No Steff Sanchez 250 mL, Me moria Chloride 5-17 [place]ihan Rate: On l 0.9% 14:31: call for [place] (titrate) 00 use with 250 mL blood product administra tion, Dosing Weight 81.818, kg, Route: IV, Total Volume: 250, Duration: 1 day, Stop date: 09/01/12 9:30:00, Replace Every: 24 hr [place] No Steff Sanchez 2 tab, Rafi daniele 10/325 oral 5-16 Holihan Route: PO, l tablet 23:00: Drug Form: Clover nn 00 TAB, Dosing Weight 81.818, kg, Q4H, PRN Pain, Start date: 08/30/12 18:00:00, Duration: 30 day, Stop date: 09/29/12 17:59:00 hydromorpho 2012- No Lexus 0.5 mg, M emoria ne 5-16 Miguel 0.25 mL, l 18:22: Holliday Route: Gerardo 00 IVP, Drug form: INJ, Q5Min, Dosing Weight 81.818, kg, PRN Pain Score 7-10, Start date: 08/30/12 13:22:00, Duration: 5 doses or times, Stop date: 08/31/12 0:00:00 flumazenil No Lexus 0.2 mg, 2 Memoria 5-16 Miguel mL, Route: l 18:22: [place] IVP, Drug form: INJ, PRN, Dosing Weight 81.818, kg, PRN Benzodiaze pine Reversal, Initial dose, Start date: 08/30/12 13:22:00, Stop date: 08/31/12 0:00:00 naloxone No Lexus 0.04 mg, Mem oria 5-16 Miguel 0.1 mL, l 18:22: [place]iday Route: [place] IVP, Drug form: INJ, Q2MIN, Dosing Weight 81.818, kg, PRN Narcotic Reversal, Start date: 08/30/12 13:22:00, Duration: 8 doses or times, Stop date: 08/31/12 0:00:00 ondansetron No Lexus 4 mg, 2 M emoria 5-16 Miguel mL, Route: l 18:22: [place] IVP, Drug form: INJ, ONCE, Dosing Weight 81.818, kg, PRN Nausea & Vomiting, Start date: 08/30/12 13:22:00 cefoxitin No Robb 1 gm, Memor ia (SCIP) 16 Kim Ramírez Route: l 16:21: IVPB, Drug form: INJ, ONCE, Dosing Weight 81.818, kg, Start date: 08/30/12 11:21:00, Stop date: 08/30/12 11:21:00 Amicar No Pérez 3 gm, 12 Rafi daniele 5-16 Sangmin mL, Route: l 01:44: Haroldo PO, Drug form: SOLN, Q6H, Dosing Weight 81.818, kg, Start date: 08/29/12 20:44:00, Duration: 30 day, Stop date: 09/28/12 18:00:00 Amicar No Pérez 3 gm, 12 Rafi daniele 5-15 Sangmin mL, Route: l 23:00: Haroldo PO, Drug form: SOLN, Q6H, Dosing Weight 81.818, kg, Start date: 08/29/12 18:00:00, Stop date: 09/28/12 12:00:00 Colace 100 No Mansoor 100 mg, 1 Memoria mg oral 5-15 [place] cap, l capsule 22:00: Route: PO, Drug form: CAP, BID, Dosing Weight 84.091, kg, Start date: 08/29/12 17:00:00, Duration: 30 day, Stop date: 09/28/12 9:00:00 diphenhydrA No Pérez 25 mg, 1 Memoria MINE 5-15 Sangmin cap, l 21:00: Haroldo Route: PO, Drug form: CAP, ONCALL, Dosing Weight 81.818, kg, Priority: Routine, Start date: 08/29/12 16:00:00, Duration: 30 day, Stop date: 09/28/12 15:59:00, Premed Blood ProductsPr emed Blood Products acetaminoph No Pérez 650 mg, 2 Memoria en 5-15 Sangmin tab, l 21:00: Haroldo Route: PO, Drug form: TAB, ONCALL, Dosing Weight 81.818, kg, Priority: Routine, Start date: 08/29/12 16:00:00, Duration: 30 day, Stop date: 09/28/12 15:59:00, Premed Blood Products. Not to exceed 4grams/24h rs.Premed Blood Products. Not to exceed 4grams/24h rs. Dilaudid No Steff Laura 0.2 mg, Memoria 5-15 Holihan 0.1 mL, l 20:37: Route: IV, Gerardo 00 Drug form: INJ, Q4H, Dosing Weight 81.818, kg, PRN Pain, Start date: 08/29/12 15:37:00, Duration: 30 day, Stop date: 09/28/12 15:36:00 D5W 1/2NS + 2012-0 No Mansoor 1,000 mL, Memoria KCL 20mEq/L 5-15 [place] Rate: 100 l 1000ml 17:51: ml/hr, Gerardo (Premix) 00 Infuse 1,000 mL over: 10 hr, Route: IV, Dosing Weight 84.091 kg, Total Volume: 1,000, Start date: 08/29/12 12:51:00, Duration: 30 day, Stop date: 09/28/12 12:50:00 Zofran 2012-0 No Mansoor 4 mg, 2 Memori a 5-15 [place] mL, Route: l 16:20: IV, Drug Gerardo 00 form: INJ, Q8H, Dosing Weight 84.091, kg, PRN Nausea, Start date: 08/29/12 11:20:00, Duration: 30 day, Stop date: 09/28/12 11:19:00 morphine 2012-0 No Steff Laura 2 mg, 1 Memoria Sulfate 5-15 Holihan mL, Route: l 16:20: IVP, Drug [place] 00 form: INJ, Q2H, Dosing Weight 84.091, kg, PRN Pain, Start date: 08/29/12 11:20:00, Duration: 30 day, Stop date: 09/28/12 11:19:00 [place] 5/325 2012-0 No Steff Laura 2 tab, Memoria oral tablet 5-15 Holihan Route: PO, l 16:18: Drug Form: [place] 00 TAB, Dosing Weight 84.091, kg, Q4H, PRN Pain, Start date: 08/29/12 11:18:00, Duration: 30 day, Stop date: 09/28/12 11:17:00 D5W 1/2NS + 2012-0 No Mansoor 1,000 mL, Memoria KCL 20mEq/L 5-15 [place] Rate: 75 l 1000ml 16:18: ml/hr, Gerardo (Premix) 00 Infuse 1,000 mL over: 13.3 hr, Route: IV, Dosing Weight 84.091 kg, Total Volume: 1,000, Start date: 08/29/12 11:18:00, Duration: 30 day, Stop date: 09/28/12 11:17:00 morphine 2013-0 No Olga Sara 4 mg, 1 M emoria Sulfate 5-15 Kreiner mL, Route: l 15:31: IVP, Drug [place] 00 form: INJ, ONCE, Dosing Weight 84.091, kg, Start date: 08/29/12 10:31:00, Stop date: 08/29/12 10:31:00 Vital Signs Vital Name Observation Time Observation Value Comments Source Heart Rate 2015-12-20 16:33:00 [facility] Temperature Oral (F) 2015-12-20 16:33:00 98.7 F [facility] [place] Systolic (mm Hg) 2015-12-20 16:33:00 Rafi rial [place] Diastolic (mm Hg) 2015-12-20 16:33:00 Mem orial [place] Respitory Rate 2015-12-20 16:33:00 Memori al [place] Temperature Oral (F) 2015-12-20 13:24:00 98.2 F [facility] [place] Systolic (mm Hg) 2015-12-20 13:24:00 Rafi rial [place] Diastolic (mm Hg) 2015-12-20 13:24:00 Mem orial [place] Respitory Rate 2015-12-20 13:24:00 Memori al Gerardo Heart Rate 2015-12-20 13:24:00 [facility] [place] Systolic (mm Hg) 2015-12-20 09:15:00 Rafi rial [place] Diastolic (mm Hg) 2015-12-20 09:15:00 Mem orial [place] Respitory Rate 2015-12-20 09:15:00 Memori al [place] Heart Rate 2015-12-20 09:15:00 [facility] [place] Temperature Oral (F) 2015-12-20 09:15:00 97.8 F [facility] [place] Height 2015-12-18 06:07:00 167.64 cm [facility] [place] BMI Calculated 2015-12-18 06:07:00 Memori al [place] Weight 2015-12-18 06:07:00 [facility] [place] Weight 2015-12-18 00:14:00 [facility] BMI Calculated 2015-12-18 00:14:00 Memori al [place] Height 2015-12-18 00:14:00 167.64 cm [facility] [place] Systolic (mm Hg) 2015-07-01 12:41:00 Rafi rial [place] Diastolic (mm Hg) 2015-07-01 12:41:00 Mem orial [place] Temperature Oral (F) 2015-07-01 12:41:00 98 F [facility] [place] Respitory Rate 2015-07-01 12:41:00 Memori al [place] Systolic (mm Hg) 2015-07-01 09:00:00 Rafi rial [place] Diastolic (mm Hg) 2015-07-01 09:00:00 Mem orial [place] Heart Rate 2015-07-01 09:00:00 [facility] [place] Respitory Rate 2015-07-01 09:00:00 Memori al [place] Temperature Oral (F) 2015-07-01 09:00:00 98 F [facility] [place] Respitory Rate 2015-07-01 00:45:00 Memori al [place] Heart Rate 2015-07-01 00:45:00 [facility] [place] Temperature Oral (F) 2015-07-01 00:45:00 98.8 F [facility] [place] Systolic (mm Hg) 2015-07-01 00:45:00 Rafi rial [place] Diastolic (mm Hg) 2015-07-01 00:45:00 Mem orial [place]ardo Heart Rate 2015-06-30 17:45:00 [facility] [place] Weight 2015-06-29 11:02:00 [facility] [place] Height 2015-06-29 11:02:00 167.64 cm [facility] [place] BMI Calculated 2015-06-29 11:02:00 Memori al [place] Heart Rate 2015-05-26 13:21:00 [facility] [place] Temperature Oral (F) 2015-05-26 13:21:00 97.9 F [facility] [place] Respitory Rate 2015-05-26 13:21:00 Memori al [place] Systolic (mm Hg) 2015-05-26 13:21:00 Rafi rial [place] Diastolic (mm Hg) 2015-05-26 13:21:00 Mem orial [place] Respitory Rate 2015-05-26 11:24:00 Memori al [place] Heart Rate 2015-05-26 11:24:00 [facility] [place] Systolic (mm Hg) 2015-05-26 11:24:00 Rafi rial [place] Diastolic (mm Hg) 2015-05-26 11:24:00 Mem orial [place] Temperature Oral (F) 2015-05-26 11:24:00 98.2 F [facility] [place] Temperature Oral (F) 2015-05-26 05:41:00 98.7 F [facility] [place] Heart Rate 2015-05-26 05:41:00 [facility] [place] Systolic (mm Hg) 2015-05-26 05:41:00 Rafi rial [place] Diastolic (mm Hg) 2015-05-26 05:41:00 Mem orial [place] Respitory Rate 2015-05-26 05:41:00 Memori al [place] Weight 2015-05-23 15:25:00 [facility] [place] Height 2015-05-23 15:25:00 167.64 cm [facility] [place] BMI Calculated 2015-05-23 15:25:00 [facility] [place] Weight 2015-05-20 23:17:00 [facility] [place] BMI Calculated 2015-05-20 23:17:00 [facility] al [place] Height 2015-05-20 23:17:00 167.64 cm [facility] [place] Temperature Oral (F) 2015-05-10 22:30:00 97.9 F [facility] [place] Heart Rate 2015-05-10 22:30:00 [facility] [place] Respitory Rate 2015-05-10 22:30:00 Memori al [place] Systolic (mm Hg) 2015-05-10 22:30:00 Rafi rial [place] Diastolic (mm Hg) 2015-05-10 22:30:00 Mem orial [place] Temperature Oral (F) 2015-05-10 18:05:00 98 F [facility] [place] Respitory Rate 2015-05-10 18:05:00 Memori al [place] Heart Rate 2015-05-10 18:05:00 [facility] [place] Systolic (mm Hg) 2015-05-10 18:05:00 Rafi rial [place] Diastolic (mm Hg) 2015-05-10 18:05:00 Mem orial [place] Respitory Rate 2015-05-10 14:50:00 Memori al [place] Systolic (mm Hg) 2015-05-10 14:50:00 Rafi rial [place] Diastolic (mm Hg) 2015-05-10 14:50:00 Mem orial [place] Heart Rate 2015-05-10 14:50:00 [facility] [place] Temperature Oral (F) 2015-05-10 14:50:00 98.2 F [facility] [place] Weight 2015-05-09 12:04:00 [facility] [place] Height 2015-05-09 12:04:00 167.64 cm [facility] [place] BMI Calculated 2015-05-09 12:04:00 [facility]ori al [place] Heart Rate 2015-04-19 02:58:00 [facility] [place] Temperature Oral (F) 2015-04-19 02:58:00 98.7 F [facility] [place] Respitory Rate 2015-04-19 02:58:00 Memori al [place] Systolic (mm Hg) 2015-04-19 02:58:00 Rafi rial [place] Diastolic (mm Hg) 2015-04-19 02:58:00 Mem orial [place] Heart Rate 2015-04-18 22:24:00 [facility] Temperature Oral (F) 2015-04-18 22:24:00 98.6 F [facility] Systolic (mm Hg) 2015-04-18 22:24:00 Rafi rial [place] Diastolic (mm Hg) 2015-04-18 22:24:00 Mem orial [place] Respitory Rate 2015-04-18 22:24:00 Memori al [place] Temperature Oral (F) 2015-04-18 17:35:00 98.8 F [facility] [place] Systolic (mm Hg) 2015-04-18 17:35:00 Rafi rial [place] Diastolic (mm Hg) 2015-04-18 17:35:00 Mem orial [place] Heart Rate 2015-04-18 17:35:00 [facility] [place] Respitory Rate 2015-04-18 17:35:00 [facility] [place] Weight 2015-04-15 07:18:00 [facility] [place] Height 2015-04-15 07:18:00 167.7 cm [facility] [place] BMI Calculated 2015-04-15 07:18:00 [facility] [place] BMI Calculated 2015-04-14 22:36:00 [facility] al [place] Weight 2015-04-14 22:36:00 [facility] [place] Height 2015-04-14 22:36:00 167.64 cm [facility] [place] Heart Rate 2012-09-01 12:56:00 [facility] [place] Respitory Rate 2012-09-01 12:56:00 [facility] al [place] Temperature Oral (F) 2012-09-01 12:56:00 98.1 F [facility] [place] Systolic (mm Hg) 2012-09-01 12:56:00 Rafi rial [place] Diastolic (mm Hg) 2012-09-01 12:56:00 Mem orial [place] Diastolic (mm Hg) 2012-09-01 08:53:00 Mem orial [place]ardo Temperature Oral (F) 2012-09-01 08:53:00 98.0 F [facility] [place] Heart Rate 2012-09-01 08:53:00 [facility] Respitory Rate 2012-09-01 08:53:00 Memori al [place] Systolic (mm Hg) 2012-09-01 08:53:00 Rafi rial [place] Systolic (mm Hg) 2012-09-01 05:28:00 Rafi rial [place] Diastolic (mm Hg) 2012-09-01 05:28:00 Mem orial [place] Respitory Rate 2012-09-01 05:28:00 Memori al [place] Heart Rate 2012-09-01 05:28:00 [facility] [place] Temperature Oral (F) 2012-09-01 05:28:00 98.1 F [facility] [place] Height 2012-08-29 19:03:00 167.64 cm [facility] [place] Weight 2012-08-29 19:03:00 [facility] Weight 2012-08-29 15:02:00 [facility] [place] Height 2012-08-29 15:02:00 167.64 cm [facility] Gerardo Procedures Procedure Date / Time Performed Performing Clinician Cristina e External fixation 2015-04-17 00:00:00 [facility] H ermann Cholecystectomy 2014-04-17 00:00:00 [facility] wilkes Hernia repair 1994-04-17 00:00:00 [facility] Her wilkes section [facility] Jonel n section [facility] Jonel n Encounters Start End Encounter Admission Attending Care Care Encounter Source Date/Time Date/Time Type Type Clinicians Facility Department ID 2019-07-13 2019-07-13 Nurse JARAD Douglas [id number] 00:00:00 00:00:00 Triage [facility]acelis [place] [id number] [facility] 4.2.7.2.686 [id number] 2019-07-13 2019-07-13 Nurse Samuel JARAD 1.2.840.114 [id number] 00:00:00 00:00:00 Triage Melinda Leta [place] 350.1.13.10 [facility] 4.2.7.2.686 [id number] 2018-12-31 2019[facility]028 [id number] 21:55:55 14:19:00 Encounter Jesse Monroe [place] 350.1.13.10 [place] 4.2.7.2.686 [id number] 2018-12-31 2018-12-31 Nurse Visit, [facility] 1.2.840.114 [id number] 15:10:27 15:53:28 Visit Ang-Rmchp [employer] 350.1.13.10 Nurse [facility] 4.2.7.2.686 MATERNAL [id number] & CHILD 107 [facility] 2018-12-31 2018-12-31 [facility] 1.2.840.114 [id number] 00:00:00 00:00:00 Rimma Guadalupe [employer] 350.1.13.10 [facility] 4.2.7.2.686 MATERNAL [id number] & CHILD 107 [facility] 2018-12-31 2018-12-31 Telephone JARAD Upton 1.2.840.114 [id number] 00:00:00 00:00:00 [place] 350.1.13.[address]2.686 [id number] 2018-12-28 2018-12-29 [facility] [id number] 19:29:15 00:59:00 Alla Lopez 350.1.13.10 [place] 4.2.7.2.686 [place] [id number] 2018-12-28 2018-12-28 Nurse Visit, [facility] 1.2.840.114 [id number] 12:55:55 13:47:08 Visit Ang-Rmchp [employer] 350.1.13.10 Nurse [facility] 4.2.7.2.686 MATERNAL [id number] & CHILD 107 [facility] 2018-12-20 2018-12-24 [facility] DlJARAD 1.2.840.114 [id number] 18:42:00 13:40:00 Encounter Ree ISRA[place] 350.1.13.10 ANNEX 4.2.7.2.686 [id number] 2018-12-20 2018-12-20 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, [facility] 1.2.840.114 [id number] 11:12:37 11:42:37 Visit Evan SWIMMING POOL INSTALLER 350.1.13.10 REGIONAL 4.2.7.2.686 MATERNAL [id number] & CHILD 369 [facility] 2018-12-20 2018-12-20 Routine Risk, [facility] 1.2.840.114 [id number] 10:20:16 11:05:03 Liliap-N SWIMMING POOL INSTALLER 350.1.13.10 Visit p/High REGIONAL 4.2.7.2.686 MATERNAL [id number] & CHILD 107 [facility] 2018-12-18 2018-12-18 Routine Velarde, [facility] 1.2.840.114 [id number] 12:50:29 14:00:55 Roshunda R SWIMMING POOL INSTALLER 350.1.13.10 Visit REGIONAL 4.2.7.2.686 MATERNAL [id number] & CHILD 107 [facility] 2018-12-13 2018-12-13 Routine Pool, [facility] 1.2.840.114 [id number] 13:28:19 14:24:11 Resident [facility] 350.1.13.10 Visit CLINICS 4.2.7.2.686 [id number] 2018-12-13 2018-12-13 Waste Machine Operator 2, [facility] 1.2.840.11 [id number] 12:48:28 13:23:20 Visit Usg Room [facility] HEALTH 350.1.13.10 CLINICS 4.2.7.2.686 [id number] 2018-12-13 2018-12-13 Orders Doctor ABRAHAM 1.2.840.114 [id number] 00:00:00 00:00:00 Only Unassigned, [place] 350.1.13.10 [facility] 42.7.2.686 [id number] 2018-12-11 2018-12-11 Case JARAD Chris 1.2.840.114 [id number] 00:00:00 00:00:00 Management Ruba SEALY 350.1.13.10 [facility] 42.7.2.686 [id number] 2018-12-10 2018-12-10 Routine Faculty, [facility] 1.2.840.114 [id number] 10:35:35 11:46:44 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 350.1.13.10 Visit [facility] 4.2.7.2.686 MATERNAL [id number] & CHILD 107 [facility] 2018-12-06 2018-12-06 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, [facility] 1.2.840.114 [id number] 11:40:06 12:10:06 Visit Ang-Mfm SWIMMING POOL INSTALLER 350.1.13.10 [facility] 4.2.7.2.686 MATERNAL [id number] & CHILD 369 [facility] 2018-12-06 2018-12-06 Routine Risk, [facility] 1.2.840.114 [id number] 10:02:15 11:39:46 Ang-Rmchp-N SWIMMING POOL INSTALLER 350.1.13.10 Visit p/High [facility] 4.2.7.2.686 MATERNAL [id number] & CHILD 107 [facility] 2018-12-03 2018-12-03 [facility] Lorrie Olmos [facility] 1.2.840.114 [id number] 13:57:00 16:45:00 Encounter [facility] 350.1.13.10 [place] 4.2.7.2.686 [place] [id number] 2018-12-03 2018-12-03 Routine Faculty, [facility] 1.2.840.114 [id number] 09:27:42 10:36:46 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 350.1.13.10 Visit [facility] 4.2.7.2.686 MATERNAL [id number] & CHILD 107 [facility] 2018-11-29 2018-11-29 Routine Risk, [facility] 1.2.840.114 [id number] 12:45:37 13:38:16 Ang-Rmchp-N SWIMMING POOL INSTALLER 350.1.13.10 Visit p/High REGIONAL 4.2.7.2.686 MATERNAL [id number] & CHILD [address] [place] [address] 2015-12-17 2015-12-20 Outpatient Truptieliceo [facility] [id number] 19:14:00 17:30:00 , Olivier 45 2015-06-29 2015-07-01 Outpatient Wilson, [facility] [id number] 06:02:00 08:51:00 Oksana Covington 73 2015-05-20 2015-05-26 Outpatient Gurpreet, [facility] [id number] 16:24:00 15:50:00 Alma 34 [place] 2015-05-09 2015-05-10 Outpatient Gonzalo, [facility] [id number] 06:02:00 17:45:00 Pérez Sharita 23 2015-04-14 2015-04-18 Outpatient Lyric [facility] [id number] 16:34:00 21:15:00 Arturo Monroe 63 Results Test Description Test Time Test Comments Results Result Sourc e Comments BLOOD BANK RESULTS 2015-12-20 Product Memori al 12:44:00 available Gerardo (12/20/15 7:44 AM) CHEM PANEL 2015-12-20 135 [facility] 10:29:00 Gerardo CHEM PANEL 2015-12-20 109 [facility] 10:29:00 Gerardo CHEM PANEL 2015-12-20 7.9 [facility] 10:29:00 Gerardo CHEM PANEL 2015-12-20 24 [facility] 10:29:00 [place] CHEM PANEL 2015-12-20 4.8 [facility] 10:29:00 Gerardo CHEM PANEL 2015-12-20 141 [facility] 10:29:00 [place] CHEM PANEL 2015-12-20 95 [facility] 10:29:00 [place] CHEM PANEL 2015-12-20 0.44 [facility] 10:29:00 [place] CHEM PANEL 2015-12-20 8 [facility] 10:29:00 [place] CHEM PANEL 2015-12-20 12.8 [facility] 10:29:00 [place] CHEM PANEL 2015-12-20 1.9 [facility] 10:29:00 [place] HEMATOLOGY 2015-12-20 1+ (12/20/15 5:29 [facility] 10:29:00 AM) [place] HEMATOLOGY 2015-12-20 1+ *ABN*(12/20/15 [facility] 10:29:00 5:29 AM) [place] HEMATOLOGY 2015-12-20 Normal (12/20/15 [facility] 10:29:00 5:29 AM) [place] HEMATOLOGY 2015-12-20 10:29:00 Test Item Value Reference Range Interpretation Comme nts Tot Cell Ct (test code = Tot Cell Ct) 100 1 [facility] VnmjtwtMKVFIUMZLP7561-36-91 10:29:001+ *ABN*(12/20/15 5:29 AM)[facility] SugjhozKEEOMANXZZ9688-11-51 10:29:003.9[facility] LwihwzsHDXSPYVSLH1859-96-68 10:29:0032.0[facility] HsdasxbLKLTIQEXPN6470-45-63 10:29:004.0[facility] HUSYITSLPJ1371-95-07 10:29:000.0[facility] XjhkjidMSDAXEHMPA7923-82-84 10:29:00 64.0[facility] UultdzmVWJLUUTKNN3287-35-21 10:29:000.0[facility] HermannHEMATOLOGY 2015-12-20 10:29:002.0[facility] RrxhucaDFJMZENKLI8480-38-84 10:29:000.2[facility] AayuiuiKEHBDJNCYA0131-67-63 10:29:0030.5[facility] DcqsluyNVYHUFZBON3622-52-84 10:29:0017.7[facility] ZlitbebLAUERPPYYW8497-44-41 10:29:009.5[facility] [place] QCNECKUMKW8181-83-06 10:29:63508Fxmqcatz HxmxunjNMRETCPDFJ2338-28-57 10:29:00 21.6[facility] AxkqkycAWCCVPEDCN2752-86-44 10:29:006.1[facility] HermannHEMATOLOGY 2015-12-20 10:29:006.6[facility] OmzkboaFPPSVHQTPS9116-23-37 10:29:002.68[facility] OsrsigkFLYVXGOEVV0330-54-07 10:29:0080.6[facility] TvgboiuSPCYUQEWZJ6588-10-31 10:29:00 Test Item Value Reference Range Interpretation Comments MCH (test code = MCH) 24.5 pg 27.0-31.0 [facility] HermannCHEM VRSVO3678-83-73 09:24:002.1[facility] HermannELECTROLYTES 2015-12-19 09:24:73392Xwwznfrp ApgqoicHPPUTCFBGMFE1329-35-86 09:24:000.45 Memorial BidhnkwKCBIXZBDQEFP4235-67-54 09:24:004.1[facility] HermannELECTROLYTES 2015-12-19 09:24:0026[facility] KsplrpmFJADEVQIUVMO7662-13-31 09:24:42016Xxpawzyx IhwehddQHDNFTBBNQXE3257-69-55 09:24:007.9[facility] JbhyfplGZTTRCOBCHPV1503-20-38 09:24:0010.1[facility] DdmpzzsFMYFXEKYXUWG4627-09-61 09:24:45209Gdvcahte [place] CXBSFGNNXCRL3724-29-96 09:24:71154Bxajhtnt JetaxraRSDLXLVKHWDS1121-24-81 09:24:007[facility] CylvrjgERCRBMTPZC1369-94-05 09:24:12319Chybzcaw [place] TCPOTNPYOR2390-15-17 09:24:00 Test Item Value Reference Range Interpretation Comments MCH (test code = MCH) 24.7 pg 27.0-31.0 [facility] OzybadwNHKMXFDMYQ7736-93-63 09:24:0032.3[facility] HermannHEMATOLOGY 2015-12-19 09:24:009.2[facility] WswqhvyKEEBDSVVFM9207-43-72 09:24:0017.5[facility] VssplkdRBMCEHXUXL0216-40-52 09:24:0022.0[facility] EhhtyrdNLLYMALARK6914-32-68 09:24:0076.8[facility] LqaoyhyLUUBDDUPYU8567-39-47 09:24:007.1[facility] BKVEOEAMDX7603-61-70 09:24:002.87[facility] XscotgdQVMOEMUVWP4281-80-87 09:24:00 7.6[facility] HermannCHEM CQGWE9397-84-60 20:10:73957Zpewelvq HermannCHEM PANEL 2015-12-18 20:10:10087Iiftybin HermannCHEM REETM4982-14-37 20:10:000.59[facility] HermannCHEM QPELG4718-91-01 20:10:005[facility] HermannCHEM RRBUG7234-70-56 20:10:14179Ebbmlnnc HermannCHEM HSCGY8742-06-14 20:10:82243Vyutvevr HermannCHEM YSUMX5089-09-40 20:10:003.9[facility] HermannCHEM XZHKU5956-78-73 20:10:0013.9 [facility] HermannCHEM OSDHO9576-79-03 20:10:0022[facility] HermannCHEM PANEL 2015-12-18 20:10:007.7[facility] HermannCHEM GVOTQ2917-64-55 20:10:002.8[facility] HermannCHEM AUQBM8781-09-80 20:10:001.5[facility] VvboiyxONHVYEQHCK9774-42-40 20:10:007.3[facility] SagtoapQQKKUDWXIE4276-21-47 20:10:003.09[facility] [place] ARCWZBVBIH8579-82-31 20:10:006.9[facility] GybyupwVTQUJGNQLG5866-28-22 20:10:00 Test Item Value Reference Range Interpretation Comments MCH (test code = MCH) 23.5 pg 27.0-31.0 [facility] CwjvzebRLCAGAGSWH6965-08-67 20:10:0078.1[facility] HermannHEMATOLOGY 2015-12-18 20:10:0030.1[facility] MgjcnxbXDBHJMIIBX9693-62-69 20:10:0024.2[facility] GepssbsVNPZFOVKMA0799-14-96 20:10:0017.4[facility] UvslkmiYJZSIXTNNL1356-63-58 20:10:009.2[facility] VsosvebJUJLUBVFDP9879-22-75 20:10:0098[facility] ZZVMBOTZRC1288-80-81 20:10:000.2[facility] IhddulqGUJQHMXZLZ2604-29-51 20:10:006.5 [facility] DgwqdkhRWYURTHLPI8757-02-69 20:10:00Moderate *ABN*(12/18/15 3:10 PM) [facility] QskduaiTRMHMISOOT9390-57-75 20:10:000.1[facility] HermannHEMATOLOGY 2015-12-18 20:10:001+ *ABN*(12/18/15 3:10 PM)[facility] JvptwgiAZSFUAEJQX7356-26-60 20:10:001+ (12/18/15 3:10 PM)[facility] BvmcgikYRJBJCBBMX9739-72-88 20:10:000.2 [facility] HgpwtedOALUNYKCOB2585-80-00 20:10:000.1[facility] HermannHEMATOLOGY 2015-12-18 20:10:001.6[facility] UnqswmzYKZVRAIYGN3080-51-21 20:10:002.6[facility] TtcyxueSVLRMNWVKI9976-29-90 20:10:0095.5[facility] HermannURINE CWUS4950-92-75 09:51:00Negative (12/18/15 4:51 AM)[facility] HermannANEMIA JCLVG9272-22-89 04:57:00 8[facility] HermannANEMIA LNXTB0053-40-15 04:57:47702Tvhldtkk HermannANEMIA STUDY 2015-12-18 04:57:005[facility] HermannANEMIA EGOGR7570-19-99 04:57:0013[facility] HermannANEMIA XCWCX8541-37-49 04:57:01933Lfrjvsol HermannCHEM OSIXG0348-21-02 04:57:003.0[facility] HermannPARATHYROID BAYSALZ7440-29-36 04:57:000.99[facility] HermannPARATHYROID OGNTOMJ1818-30-39 04:57:001.04[facility] HermannPARATHYROID ADNIJQS8928-72-10 04:57:0038.6[facility] ReyxdrvBPSRSJIWPE4260-09-94 03:49:342 [facility] JqjpkdsOVRXYTWCEW6922-11-94 03:49:34<2.9 (12/17/15 10:49 PM)[facility]BL[facility] JSAHWVL8753-12-03 03:37:00Product available (12/17/15 10:37 PM) [facility] BxjajlmUPEYBZCMUP0371-25-59 03:10:00Normal (12/17/15 10:10 PM)[facility] IztvzfuJWDSCKJNEX9567-88-03 03:10:001.8[facility] EfepufaHXDCLEQOCU7933-43-56 03:10:009.0[facility] ZdvenniBLVMJRUWZK6775-83-59 03:10:0036.6[facility] [place] YFISOKGDQV0826-45-66 03:10:0051.9[facility] IgwdvilFTPLTJCJUZ0755-34-12 03:10:00 0.3[facility] QdexqkgKHTVLRLHZD8128-97-13 03:10:001.4[facility] HermannHEMATOLOGY 2015-12-18 03:10:002.0[facility] UlfzmhiAPYWJNDPLU2604-45-60 03:10:000.7[facility] BbbrrmqUJYMCONBAN7229-38-69 03:10:000.1[facility] IkbdcxfWZCPSGTUSX5946-87-34 03:10:001+ (12/17/15 10:10 PM)[facility] YizxdwhRYSRYLZAMK0306-25-54 03:10:001+ *ABN*(12/17/15 10:10 PM)[facility] KttzsmuBAVWARQMVY4218-33-44 03:10:001+ *ABN*(12/17/15 10:10 PM)[facility] MEQLSLY9811-55-39 03:03:00 Negative (12/17/15 10:03 PM)[facility] WdlxqatOLGTMLDGZH2156-67-33 09:10:0019.5 [facility] ZiivbcsGSMOHJLBTN0228-62-76 09:10:0032.6[facility] HermannHEMATOLOGY 2015-07-01 09:10:0091.9[facility] BoxbqopYOUEGMCSOL5399-56-97 09:10:00 Test Item Value Reference Range Interpretation Comments MCH (test code = MCH) 30.0 pg 27.0-31.0 [facility] OwrfmagWRSTPCXXHN9016-86-68 09:10:009.2[facility] HermannHEMATOLOGY 2015-07-01 09:10:85183Kunmplnh HqdhgfxZQYFSNQEWS2384-13-85 09:10:002.90[facility] MvzrvtjSIHTRMOJTG0343-57-86 09:10:0026.6[facility] HucctkfCVWRGAVJKB8888-98-24 09:10:008.7[facility] PfzmilmDXDYQHYAIV6817-07-69 09:10:004.1[facility] JWNRNMTOQM1918-56-13 09:10:000.5[facility] WlxicbyOOLWCEGVZT4446-11-39 09:10:00 13.0[facility] TjqjiwqDIEUCYVOKS5208-76-24 09:10:000.7[facility] HermannHEMATOLOGY 2015-07-01 09:10:002.7[facility] IkozbxuTBMSLTSOAW8433-29-59 09:10:000.0[facility] MswbvnrHIMACCDMIL6283-71-03 09:10:004.0[facility] KjtinhzANWLJKBXOS0483-72-37 09:10:00Normal (07/01/15 4:10 AM)[facility] JtuticoGODSMNVMQM6838-05-51 09:10:00 66.0[facility] TdnkjitJIRAXJOWYF7246-18-90 09:10:00Normal (07/01/15 4:10 AM) [facility] MxgnyzjWSPKMMKXHK5406-32-91 09:10:0017.0[facility] HermannHEMATOLOGY 2015-07-01 09:10:000.2[facility] QoazrbrSMJAVBBCKP8618-87-46 21:50:0019.5[facility] SitvsnsJVJKKHBSEX3422-70-86 21:50:0091.8[facility] IasjvsdREEDUOTPJZ1794-42-72 21:50:0024.8[facility] TkkxkqjOOWKUUBMKT0449-99-40 21:50:0032.6[facility] TFCOMFCFDB3283-76-30 21:50:00 Test Item Value Reference Range Interpretation Comments MCH (test code = MCH) 29.9 pg 27.0-31.0 [facility] WojosnuWKMTFYZFFY7345-37-24 21:50:008.7[facility] HermannHEMATOLOGY 2015-06-30 21:50:006.0[facility] TcpauavYFFXPHFCRN8538-85-68 21:50:008.1[facility] KgtynzuYFUUYZVSSE9358-70-61 21:50:002.71[facility] EqngmgpMTKCWIDAHT4569-58-32 21:50:0097[facility] CsggxkgJLSSCMQQNS7320-17-84 21:50:000.2[facility] PCMSKRMVYM7717-66-23 21:50:000.4[facility] YkekeqsNEYBNZUIKX6170-23-82 21:50:000.4 [facility] WtssjxpYZTDUFCFWJ7337-76-74 21:50:005.0[facility] HermannHEMATOLOGY 2015-06-30 21:50:002.5[facility] BjajrcoIHDNLDSARP4832-17-27 21:50:006.6[facility] VvpylwzUKFDZYGEXW4189-04-12 21:50:0084.1[facility] WnarsxqRTYPEPQIEU5863-47-11 21:50:006.6[facility] YgzryjiBECIPHHTNN5657-26-36 21:50:000.2[facility] YNNIAYXNLH5043-17-51 17:31:51181Slholbkm MtamrraLRAHOEZLNS5116-49-83 17:31:008.8 [facility] ZmuvyfwIVZKLCCMPF8615-29-15 17:31:0032.6[facility] HermannHEMATOLOGY 2015-06-30 17:31:0019.6[facility] EgsrzvsYGBBEVAEAX5565-28-40 17:31:0025.1[facility] ReaxmplUVIOEMCTWI6664-42-10 17:31:0091.8[facility] SwixeimACLXSXZSXZ2921-35-19 17:31:00 Test Item Value Reference Range Interpretation Comments MCH (test code = MCH) 29.9 pg 27.0-31.0 [facility] WfxbbuhSOZMYNIQOV4408-80-32 17:31:002.73[facility] HermannHEMATOLOGY 2015-06-30 17:31:006.4[facility] WxcuvnxABYXYTAFEP8921-76-08 17:31:008.2[facility] AojupjtGUKRZVSMKC1805-59-73 17:31:00Normal (06/30/15 12:31 PM)[facility] SCYEZTXEEF3046-75-31 17:31:00Normal (06/30/15 12:31 PM)[facility] HermannHEMATOLOGY 2015-06-30 17:31:0088.7[facility] NcgeunxDZTYREMOKW5376-30-95 17:31:005.7[facility] AmmtidbDZLNUUPJFI0651-81-21 17:31:004.5[facility] NebxddzPOVBQMNWMA8772-46-86 17:31:005.6[facility] JmkzdlcPFMHXIXVNY9490-47-67 17:31:000.4[facility] [place] UMBQXUYHCI8053-15-96 17:31:000.8[facility] AumnkimTDVUKCLNRE6574-81-00 17:31:000.4 [facility] OumczkgYISWZIOGYK8175-97-41 17:31:000.1[facility] HermannHEMATOLOGY 2015-06-30 17:31:000.3[facility] ZtjwedoJWYHIQNEXB9660-17-66 17:31:001+ (06/30/15 12:31 PM)[facility] VqeeqffWKMJOBVAUE6450-85-05 17:31:00Moderate *ABN*(06/30/15 12:31 PM)[facility] POEMWSX1611-51-18 23:16:00Product available (06/29/15 6:16 PM)[facility] IJCJTFX6573-65-84 20:00:00Product available (06/29/15 3:00 PM)[facility] VhtbyrlOWVMOMLXBJ7143-21-89 18:54:00Normal (06/29/15 1:54 PM)[facility] NvztbcwBULVOPVTLH0768-23-47 18:54:001+ (06/29/15 1:54 PM)[facility] MbawjeeXYJUVJBCLM8343-83-29 18:54:001+ *ABN*(06/29/15 1:54 PM) [facility] HermannURINE HWQK4795-31-46 18:54:00Negative (06/29/15 1:54 PM)[facility] PQMLWFT6161-34-56 17:21:00Product available (06/29/15 12:21 PM) [facility] WARFWVX9058-77-71 17:11:00Product available (06/29/15 12:11 PM)[facility] HermannCHEM QAEKZ2401-72-53 14:30:0089[facility] HermannCHEM CXWKR6889-22-12 14:30:0014[facility] HermannCHEM VINFU8236-13-82 14:30:0014 [facility] HermannCHEM KHODK2197-46-73 14:30:007.0[facility] HermannCHEM PANEL 2015-06-29 14:30:003.3[facility] HermannCHEM AILYQ9139-89-40 14:30:000.0[facility] HermannCHEM QTYCK9832-44-63 14:30:000.9[facility] HermannCHEM IBOPF2211-16-50 14:30:000.1[facility] HermannCHEM BFJBF2640-25-99 14:30:003.7[facility] HermannCHEM FVYAW7510-79-01 14:30:000.1[facility] HermannCHEM NQQWR7449-60-71 12:24:41937 [facility] HermannCHEM GZUAQ6232-15-34 12:24:380.48[facility] HermannCHEM PANEL 2015-06-29 12:24:08601Ieljxhmv HermannCHEM IPCER6837-77-61 12:24:388.4[facility] HermannCHEM NDIGM0166-19-13 12:24:384.0[facility] HermannCHEM SQMDY1550-53-70 12:24:27382Zfgmfgrh HermannCHEM FDJQW7434-87-57 12:24:3824[facility] HermannCHEM YNLLW7016-66-37 12:24:74440Jsqpuutk HermannCHEM ZGIWL2412-61-75 12:24:387 [facility] HermannCHEM KWTSQ9431-43-40 12:24:3812.0[facility] HermannHEMATOLOGY 2015-06-29 12:24:38 Test Item Value Reference Range Interpretation Comments PTT (test code = PTT) 25.6 s 22.9-35.8 [facility] YzerxidLGNSRWPSZH2185-42-96 12:24:38 Test Item Value Reference Range Interpretation Comments PT (test code = PT) 13.3 s 12.0-14.7 [facility] WejglxaJKCYMXFQNN6781-78-33 12:24:380.98[facility] YCTKIIE1894-06-97 12:24:00Positive 1(06/29/15 7:24 AM)[facility] HermannHEMATOLOGY 2015-05-26 10:38:002.9[facility] LfzchpoPUVPYEOGBH0040-16-89 10:38:001.2[facility] BmplrcrOHRCHFQNYX7858-46-66 10:38:000.5[facility] IjquygxSLCYDYULOE3129-65-72 10:38:000.4[facility] UzclpgaCHPALLEKMV1106-93-84 10:38:0057.5[facility] SFQJVGCREL3622-69-49 10:38:0024.1[facility] YobchyrZDVRUSPXGU5032-39-56 10:38:00 0.7[facility] KsycfwhACMXDPAYWY3689-00-47 10:38:009.3[facility] HermannHEMATOLOGY 2015-05-26 10:38:008.4[facility] JjkrbduFBRFSLMXPQ0659-27-38 10:38:002.88[facility] OtuyumyVGVXSHWOOC8782-37-20 10:38:005.1[facility] YtvjoxrGFMPXSLDQL1641-82-43 10:38:0025.1[facility] BtzvfmfXNWEAGDQNO2351-25-09 10:38:007.8[facility] [place] HCQFWEDMHB9743-44-78 10:38:0087.3[facility] YpmgdygVCOCGGZKGZ6024-26-21 10:38:00 31.2[facility] NaewsnhLYBXOZECKS5458-47-34 10:38:00 Test Item Value Reference Range Interpretation Comments MCH (test code = MCH) 27.3 pg 27.0-31.0 [facility] KkpucdsDNZFFNOEUR6631-18-12 10:38:008.8[facility] HermannHEMATOLOGY 2015-05-26 10:38:05392Hyljjrbs HjmdmxgMPPXMBUCLC7232-03-12 10:38:0019.1[facility] ZbbhdweVBONNQOVGD8455-89-25 11:22:000.3[facility] JzvjpfySYNYLZFQPU6865-28-62 11:22:006.7[facility] RdgvzmxXBNZLQVBIK7018-07-58 11:22:008.8[facility] IVAVNJUOUB7219-24-28 11:22:001.2[facility] IzoesdnOKDICNIIPZ2383-20-41 11:22:000.4 [facility] KlfpwdcRMNOPHUEGO7360-10-99 11:22:003.3[facility] HermannHEMATOLOGY 2015-05-25 11:22:000.5[facility] DkfbyjbSCFOUHULVV1723-39-95 11:22:0021.7[facility] UteclwcBVEKUHWADL0920-44-02 11:22:0062.5[facility] QamnoiyNUQCYYONCW7915-25-79 11:22:0018.8[facility] WraqhnxPMGSKHYMTJ8645-40-80 11:22:0085.8[facility] [place] VWKIFCNAWL8527-90-17 11:22:0031.4[facility] FivrfbjOPAYKZZCJH4680-31-48 11:22:00 2.62[facility] ElppexbMQVCCNZEUB5782-56-15 11:22:005.3[facility] HermannHEMATOLOGY 2015-05-25 11:22:007.1[facility] LtmkvzaKPXEZBYTPV4590-83-64 11:22:10478Bvneznca FqsxxncVWMRHLNENJ0310-11-86 11:22:0022.5[facility] FcskqcwXNGSBCOMEU4443-44-52 11:22:00 Test Item Value Reference Range Interpretation Comments MCH (test code = MCH) 27.0 pg 27.0-31.0 [facility] RlmertdWTZXWWYDJJ8049-44-37 11:22:008.7[facility]annHEMATOLOGY 2015-05-24 10:31:48369Zxnohawg OuiekvtUSJXGKYPMO4872-44-69 10:31:009.0[facility] CxmkcibYDTGBXMMWP0409-75-92 10:31:0018.8[facility] YesdxsqIMPZVQNEEY7281-57-63 10:31:0031.7[facility] BkkivmxYWOFLNPCMT3939-02-34 10:31:00 Test Item Value Reference Range Interpretation Comments MCH (test code = MCH) 26.8 pg 27.0-31.0 [facility] WuiixhuDECAXVSFGY5580-86-67 10:31:002.67[facility]annHEMATOLOGY 2015-05-24 10:31:007.2[facility] PevucyqUFCAXKZHXB5243-87-55 10:31:0022.6[facility] PvyqdiiNDKHSKFYYI1984 10:31:0084.4[facility] TcksbjwWSWNPBIWKL2400-79-77 10:31:004.8[facility] KsuvrxrGJNHWZBMCS2378-07-73 10:31:001.1[facility] PNZQUKSQYD7831-21-40 10:31:000.5[facility] GkoizpyFRRWNQMUSE1815-35-27 10:31:002.9 [facility] CxqciqfPSMPOLLRBB6856-65-60 10:31:000.3[facility]annHEMATOLOGY 2015-05-24 10:31:006.4[facility] RkvkiepHLCZFFCRCW6965-17-64 10:31:0010.0[facility] MqxwaaqLVQPWXZIIG7712-86-11 10:31:000.4[facility] TcommbcIYBRTAGUJI5940-04-47 10:31:0023.0[facility] DxcylkcMUYNXDTSFU0155-68-88 10:31:0060.2[facility] ANEMIA LDUOX5366-88-30 20:03:17644Kqwmtbwl HermannANEMIA NEFGV9053-79-71 20:03:0017[facility] HermannANEMIA EBTOO5516-00-92 20:03:70118Mysapxez Gerardo ANEMIA MENKX0029-45-38 20:03:92423Utzxexmr HermannANEMIA WZVWG9868-48-48 20:03:0049[facility] HermannMOLECULAR QRXKFJPXKW2529-76-39 20:03:006.2[facility] HermannMOLECULAR JHDQEYZEJR0570-63-66 20:03:056086157Tpbvvbnh HermannBLOOD BANK VAJFPKE1793-77-65 17:04:00Product available (05/22/15 11:04 AM)[facility] [place] [facility] WBXQCWM1911-98-10 12:51:00Product available (05/22/15 6:51 AM)[facility] AQCPSKG0717-72-56 17:30:00Product available (05/21/15 11:30 AM) [facility] CVYDDYR4415-44-19 16:00:00Product available (05/21/15 10:00 AM)[facility] RDQANYN2196-50-50 10:55:00Negative (05/21/15 4:55 AM)[facility] IjzawloPQPBBEFBCRPI2971-44-46 10:55:0010.8[facility] [place] AFYPBIMRVHEA7189-27-96 10:55:0023[facility] WsgleuqEPTUBWSNSMTT2917-27-49 10:55:00 110[facility] IscdxsyNIMRFKPZRNHM9708-59-31 10:55:000.46[facility] PDKYVQFEIWDE3204-30-78 10:55:05427Kqibfkag MryisonZMDVVKHCYIZM2924-67-67 10:55:0010[facility] JoxjhioARJNASMEXXOX3704-89-98 10:55:42182Nlzcreqj Ger[facility] PBHJYIABIBHB5608-70-83 10:55:008.2[facility] FzvkuyaQVJIBZSXNDQP8589-36-48 10:55:003.8[facility] QindjkvPZNOKRJRSEVO3010-75-52 10:55:0078[facility] [place] CKYTQRMQDP6886-60-23 10:55:00 Test Item Value Reference Range Interpretation Comments PT (test code = PT) 14.1 s 12.0-14.7 [facility] FrhwpdjETDSBXHQKC1768-90-91 10:55:00 Test Item Value Reference Range Interpretation Comments PTT (test code = PTT) 28.2 s 22.9-35.8 [facility] EhbyxkfVURWFUYIFW0934-97-13 10:55:001.06[facility] HermannURINE CHEM 2015-05-21 10:55:00Negative (05/21/15 4:55 AM)[facility] YbqnakmICJXHOQQWN9368-57-43 23:43:001.00[facility] GttexrpXHGFMBIJUD5533-16-97 23:43:00 Test Item Value Reference Range Interpretation Comments PTT (test code = PTT) 24.1 s 22.9-35.8 [facility] MjktqdkINOUUENJGU7700-43-97 23:43:00 Test Item Value Reference Range Interpretation Comments PT (test code = PT) 13.5 s 12.0-14.7 [facility] AblvhncDGQLBOXJUX2694-42-48 10:03:008.3[facility]annHEMATOLOGY 2015-05-10 10:03:0026.9[facility] YDNJJPS3393-19-88 22:47:00 Product available (05/09/15 4:47 PM)[facility] NrmjxbaSQDGIOMWQI5368-96-83 19:22:00 21.1[facility] UfrnptgSYFUNROPNE8260-42-23 19:22:006.6[facility]annHEMATOLOGY 2015-05-09 13:31:000.0[facility] LnuuwhzBWQAMSEBNF5359-11-58 13:31:00 Test Item Value Reference Range Interpretation Comments Max Amp (test code = Max Amp) 36 mm 52-71 [facility] GxwxoprWLBKRPXBJV6325-65-88 13:31:002.8[facility]annHEMATOLOGY 2015-05-09 13:31:00 Test Item Value Reference Range Interpretation Comments Angle (test code = Angle) 63 degrees 64-80 [facility] QwpehkoJQBPTITNZU2151-86-12 13:31:00 Test Item Value Reference Range Interpretation Comments R-time (test code = R-time) 0.6 min 0.4-0.7 [facility] 13:31:00 Test Item Value Reference Range Interpretation Comments K-time (test code = K-time) 4.8 min 0.6-2.3 [facility] UdanzqyUTPCISLQWT5549-37-94 13:31:00 Test Item Value Reference Range Interpretation Comments ACT (TEG) (test code = ACT (TEG)) 105 s 86-118 [facility]TqvcgumHLWJTJEFDU8740-45-89 13:31:00 Test Item Value Reference Range Interpretation Comments Split Point (test code = Split Point) 0.3 min [facility] CenterNgwjumhEBGPOKZHOW1290-46-28 13:31:00Citrated Whole Blood (05/09/15 7:31 AM)[facility] MTEZ6424-46-45 13:31:00Negative (05/09/15 7:31 AM) [facility] EEWCMXL9152-66-41 12:39:00Negative (05/09/15 6:39 AM) [facility] CenterAqapqkkCRFGFQVTKG3560-64-39 12:39:002.68[facility]annHEMATOLOGY 2015-05-09 12:39:006.9[facility] CwztidqFIVWYDJQZL3313-95-46 12:39:006.7[facility] TyjchtiNQLYJAIZOM0500-30-21 12:39:36048Oobcqqff YdvfoogAZLNEKFOCA8189-03-81 12:39:009.0[facility] UzncikiXOCGRBRKBC1045-62-16 12:39:0082.2[facility] [place] GFQCTLQXPD1090-10-10 12:39:0019.3[facility] BndufwaOXTGNRZUKA7371-81-79 12:39:00 22.0[facility] TkxlfxtVAENMQJFIP1678-65-30 12:39:00 Test Item Value Reference Range Interpretation Comments MCH (test code = MCH) 25.6 pg 27.0-31.0 [facility] NmuhaxaMSCRDEILIN7455-48-46 12:39:0031.2[facility]annHEMATOLOGY 2015-05-09 12:39:006.1[facility] WgnkptkAZLLDWUCWG2275-36-00 12:39:000.1[facility] XbxngwaSUGIEBOXBF9764-08-20 12:39:000.5[facility] ZpmfyaePVBLCXWNNX0349-88-15 12:39:000.1[facility] KepnpahNKDBPUVNPE1672-84-70 12:39:0089.5[facility] LWQKLCVWDM4163-04-37 12:39:000.8[facility] PgwnoxiZKNSBIQFCE8231-54-62 12:39:000.7 [facility] MoowkybKDIDKLFDYM7952-47-85 12:39:007.0[facility]annHEMATOLOGY 2015-05-09 12:39:002.0[facility] QxodukrFWNHTCDZUU8983-99-76 12:39:001+ (05/09/15 6:39 AM)[facility] LudfxwnHGKCVHUCFK0715-12-93 12:39:00Normal (05/09/15 6:39 AM) [facility] CcjyeinZWFFZNUHQT9083-74-26 21:09:006.6[facility]annHEMATOLOGY 2015-04-17 21:09:008.2[facility] YfnhuklHEYVMQDGWU3579-94-43 21:09:0026.8[facility] JmtcikuWICAQOTSKT6932-84-97 21:09:003.12[facility] HogrdnbLHVPXLWNMR0483-30-09 21:09:0018.4[facility] SgpqtvnVXWDPUZHLV0731-70-07 21:09:36092[facility]zzxazco [place] PGYHEHHIRX3755-52-78 21:09:009.4[facility] YpgwhrsEFOBKLHLPO6273-71-32 21:09:00 85.8[facility] LiflqcuWPZRGEJQRG2112-81-02 21:09:00 Test Item Value Reference Range Interpretation Comments MCH (test code = MCH) 26.3 pg 27.0-31.0 [facility] IkllfnyRTWRGGKVQK2025-68-44 21:09:0030.7[facility] HermannHEMATOLOGY 2015-04-17 21:09:000.1[facility] LecsfbsUNNNMNFGFG2949-10-26 21:09:000.6[facility] OjqioohSLBCLSBGPP9773-69-85 21:09:002.0[facility] NlsmpweABNDICHUUQ6841-44-58 21:09:009.1[facility] ZhopgicKKVLMRWSAY8900-00-06 21:09:0018.8[facility] ADPCVUTUUG5348-65-90 21:09:0069.5[facility] EhegxggSOOFXDPLIX4935-24-95 21:09:00 4.6[facility] XskkkhnCVTTYOWORI2100-67-96 21:09:001.3[facility] HermannHEMATOLOGY 2015-04-17 21:09:000.6[facility] HermannCHEM QDKAW1665-22-32 07:42:23240Kczspgbs HermannCHEM LREDA5482-24-33 07:42:000.59[facility] HermannCHEM QXWUZ8176-14-95 07:42:005[facility] HermannCHEM SCSML4871-02-06 07:42:84422Zslvixcm HermannCHEM VTCXN0571-46-37 07:42:10548Cjrzmtzd HermannCHEM PWJPX7726-09-72 07:42:003.7 [facility] HermannCHEM COMBG0968-68-89 07:42:0011.7[facility] HermannCHEM PANEL 2015-04-16 07:42:23902Iksinuex HermannCHEM LXSCD5740-11-80 07:42:0024[facility] HermannCHEM UMAEB1063-52-11 07:42:007.8[facility] ButdmqtOUDZROFMFD4584-75-18 07:42:000.1[facility] DlafylkXWKQTKNEZY3273-30-28 07:42:000.8[facility] IASGASMKUF5582-29-86 07:42:0019.0[facility] LdxdvusJRDHFCMCKJ0707-88-34 07:42:00 64.6[facility] QeeoibvEQTHQJKCXK6166-71-28 07:42:000.2[facility] HermannHEMATOLOGY 2015-04-16 07:42:002.0[facility] QruqdffDARQKEXQZB1424-19-87 07:42:0014.2[facility] RzqblpeIUQRBMMZEN2900-36-66 07:42:001.1[facility] VrexxohNKTINQQOHJ2424-70-29 07:42:003.6[facility] KhcqwucFXFUCGYQOF0402-98-97 07:42:0025.2[facility] JLZQMRHLJB0983-46-46 07:42:0018.2[facility] MzwmfanHDBCBAWDMI9255-84-06 07:42:00 32.1[facility] MuavdivYWPOAGQPKY9226-02-46 07:42:00 Test Item Value Reference Range Interpretation Comments MCH (test code = MCH) 27.6 pg 27.0-31.0 [facility] SvhitcgGPGJIXTMHW3013-01-19 07:42:0086.0[facility] HermannHEMATOLOGY 2015-04-16 07:42:0091[facility] HqthzjeRKEDGKIZGU5158-17-58 07:42:009.3[facility] GizmmonEVLGTIZIHJ2083-18-97 07:42:008.1[facility] AnvdvcyANDFWLXIUI4060-42-46 07:42:002.93[facility] PqnjwdsGXTJRHVXLH5205-39-13 07:42:005.5[facility] HXCEKHPDVX6628-14-50 17:43:0022.7[facility] BnhwutaUATMEJWXVT3584-75-88 17:43:00 6.7[facility]annBL[facility]OD BANK LPUMHID5844-01-85 12:43:00Product available (04/15/15 6:43 AM)[facility] YMHSDVZ9654-83-21 12:30:00Product available (04/15/15 6:30 AM)[facility] DqbnagtFNFLHUHCVSYD0268-50-55 12:06:0011.8 [facility] KwlsetbZIBPYISUENIQ7749-23-55 12:06:52360Cmykzroq HermannELECTROLYTES 2015-04-15 12:06:008.1[facility] XwqnsisVNLGPDRCLHGG8638-14-83 12:06:0023[facility] DqcsmzqBQDZVZFOCYIO7493-68-98 12:06:81290Pbbjdyzd MvfajjqOKQFTSLTJGDN1393-66-46 12:06:83088Djlakswe QnhxnysJKCONXNTBACF5882-63-33 12:06:004[facility] BPVQMUCYUVBX8025-18-43 12:06:003.8[facility] FyctvapOKMCTCCYSRBQ7522-27-05 12:06:13138Trfxfady IhhabzsQIKJCIJHJQLZ2850-99-05 12:06:000.47[facility] MRSVBBGUCQ4715-67-51 12:06:54477Gyxvxemh SiljmgbLLKHSCEJPF4725-66-09 12:06:009.0 [facility] YjkziaoDYOSRNFTAU0046-27-58 12:06:0018.5[facility] HermannHEMATOLOGY 2015-04-15 12:06:0029.5[facility] EljhjjxUBAHKUSRKU9567-80-01 12:06:00 Test Item Value Reference Range Interpretation Comments MCH (test code = MCH) 24.3 pg 27.0-31.0 [facility] QmxwpbaCZMQWHKVRN0546-82-20 12:06:0082.2[facility] HermannHEMATOLOGY 2015-04-15 12:06:002.82[facility] DvsgyzfZMNMQJQSKQ5905-19-40 12:06:005.7[facility] OthqyubCPSTARRTVV6224-23-63 12:06:0079.3[facility] VbfsuayREBUBPGZWL9110-09-52 12:06:001.1[facility] IcjvkkxVRIGWAOIJG7975-62-08 12:06:008.2[facility] MANCOVLBAL1734-50-92 12:06:0011.1[facility] HegtpjqYQEYNBBIMG1433-18-53 12:06:00 0.3[facility] YdrhmqaZXKFWEWICD9288-00-87 12:06:000.6[facility] HermannHEMATOLOGY 2015-04-15 12:06:004.5[facility] VdbqojhWBZDFLNURQ3146-95-10 12:06:000.1[facility] PymeoxrUQQYKXOWLJ3701-25-44 12:06:000.5[facility] 2015-04-15 07:25:00Product available (04/15/15 1:25 AM)[facility] HermannURINE GSGM3723-64-62 04:01:00Negative (04/14/15 10:01 PM)[facility] HermannENDOCRINOLOGY 2015-04-15 03:42:00<1[facility] EqchgjjXOUEYZNRGB2136-74-72 03:42:001.09 [facility] JphlhrcQJDYPYPNRP3116-75-88 03:42:00 Test Item Value Reference Range Interpretation Comments PT (test code = PT) 14.4 s 12.0-14.7 [facility] QPEDNRZ9195-15-88 23:37:00Negative (04/14/15 5:37 PM) [facility] AhkqgryQATEKYQVTMGU6800-33-91 23:32:008.6[facility] HermannELECTROLYTES 2015-04-14 23:32:92475Pssxgsux PpsikwvMCVKMRYUCPDV0302-37-11 23:32:008.4[facility] ScmpggvPXAXBQLAGGZK0298-03-42 23:32:0026[facility] SmuaqfuFGZUDIETXHRZ1821-15-52 23:32:95787Xvtssqfu PitcxkvBFLPKQTDKKMP7855-25-55 23:32:003.6[facility] KVBZUEKNXYMB2191-54-21 23:32:42389Bbmfhpey EvsxzzcJBQGDLPASYIJ8750-73-44 23:32:000.56[facility] EuobvryBPAAHTIBRGJU1711-21-94 23:32:008[facility] SYSLSLQJUTNQ4995-68-73 23:32:0099[facility] RvscfthFCQIVLJDCM9492-43-35 23:32:00 0.0[facility] QaebklrMCWPYPAZAN0592-45-24 23:32:00 Test Item Value Reference Range Interpretation Comments K-time (test code = K-time) 4.1 min 0.6-2.3 [facility] JzpimsxABGUFUAUYH7102-86-61 23:32:00Citrated Whole Blood (04/14/15 5:32 PM)[facility] ResourcesWfnocicLPTCBWSFRG0995-91-58 23:32:00 Test Item Value Reference Range Interpretation Comments ACT (TEG) (test code = ACT (TEG)) 97 s 86-118 [facility] ResourcesEsrtyieIKMBGIITTI8913-46-80 23:32:00 Test Item Value Reference Range Interpretation Comments Angle (test code = Angle) 74 degrees 64-80 [facility]EswszdyLAQCPNFNXR3701-34-99 23:32:00 Test Item Value Reference Range Interpretation Comments Split Point (test code = Split Point) 0.3 min [facility] ResourcesPxmpyfvSKXTJEXKKS7003-55-49 23:32:00 Test Item Value Reference Range Interpretation Comments R-time (test code = R-time) 0.5 min 0.4-0.7 [facility] ResourcesNmsgedfKLKPVGFWNF7081-06-45 23:32:00 Test Item Value Reference Range Interpretation Comments Max Amp (test code = Max Amp) 33 mm 52-71 [facility] ResourcesQyhtulfAQBWWRMJYT1878-94-79 23:32:002.4[facility] HermannHEMATOLOGY 2012-09-01 09:09:000.6[facility] IfkkxlqAMREFNHHJI6350-81-48 09:09:000.5[facility] GeqtmiyNSEFFEYLLL3043-45-43 09:09:001.2[facility] NavcelmNGTHLKCAVD7874-99-90 09:09:000.5[facility] AucurojIUNFHHVKHI7150-89-32 09:09:0063.7[facility] [place] FWGUFYTRLG0252-69-79 09:09:004.0[facility] ZwybqypKQQQBDPPVV1257-68-38 09:09:00 19.3[facility] UzleurhEZGSEFQZEI7631-77-03 09:09:009.2[facility] HermannHEMATOLOGY 2012-09-01 09:09:007.3[facility] UchqziwMCQVMHEPMZ6000-36-45 09:09:006.3[facility] QpsrnohTSEPTQIARK9327-30-53 09:09:003.31[facility] MvdnbuvLMGERNPZOE3031-03-28 09:09:008.3[facility] ShvagrbSRCZLRHWVA5746-99-48 09:09:009.5[facility] [place] MCMIHMDGIJ6692-17-07 09:09:0086[facility] KfapyvrMUVIZZUSOJ7871-19-89 09:09:0017.4 [facility] MpscnmqVLEBRLXAQA7182-58-43 09:09:0031.3[facility] HermannHEMATOLOGY 2012-09-01 09:09:0026.4[facility] TpflecfVVUHFKBBDB1424-75-33 09:09:00 Test Item Value Reference Range Interpretation Comments MCH (test code = MCH) 25.0 pg 27.0-31.0 L [facility] ZrgzkvgEVPMQESHGY2367-98-22 09:09:0079.9[facility]annBLOOD BANK XMKRAWN6447-94-30 14:31:00Product available (08/31/2012 09:31:00)[facility] RgaofimKGGTOCIMY6310-13-61 07:20:003.7[facility] DbfsrpvVBNYBGLIS0734-07-52 07:20:001.6[facility] LtfcfsaOIRBAECZB3375-69-16 07:20:0013.8[facility] GEELJGBJI5871-72-19 07:20:93605Rsdsehkq XbtecsjTQRLZAYGC7130-32-66 07:20:94787 [facility] NjpqaaxDQDUSFQZF4150-83-59 07:20:000.6[facility] HermannCHEMISTRY 2012-08-31 07:20:63958Khvizmnq HtmwhhqZTJMTWLIT7651-33-15 07:20:003.8[facility] TesuqfiEYNGXLCFI9014-87-96 07:20:003[facility] IpurzqnSSDPGTLTB7228-81-63 07:20:00 140[facility] WbrwjdoFFLFHTNEK7024-22-13 07:20:008.7[facility] HermannCHEMISTRY 2012-08-31 07:20:0025[facility] UvfmujsMBOJZIDLIR1339-93-64 07:20:0021.8[facility] CazjgvdNLSTRAWYFX1275-72-27 07:20:006.6[facility] UysrkyfVWMHVEPDUX6862-25-98 07:20:0080.1[facility] PmtbckpTYTPZYDLDL0130-49-02 07:20:00 Test Item Value Reference Range Interpretation Comments MCH (test code = MCH) 24.3 pg 27.0-31.0 L [facility] ObllukyZXPTYQNTDJ9215-78-86 07:20:002.72[facility] HermannHEMATOLOGY 2012-08-31 07:20:006.5[facility] MytwlfuWJFYPJUQZH4155-01-28 07:20:0030.3[facility] WqlvqwnIJPQVUJGAM5072-19-21 07:20:0018.2[facility] GrqhpnzRNUHZPBXKP3366-66-63 07:20:009.4[facility] NgbfpkcHPBAUACYTB8957-27-03 07:20:0084[facility] JDCVHYKDXU9096-93-49 07:20:003.1[facility] DdjjlzlDNPMNJRERW7950-54-13 07:20:00 14.6[facility] ViqbparKWMSAOTUUP9589-74-73 07:20:007.2[facility] HermannHEMATOLOGY 2012-08-31 07:20:004.9[facility] JjmnnauXMDDAJAXVD7665-25-50 07:20:000.3[facility] NwkqfpyQDORLKYGYX7141-26-05 07:20:000.2[facility] LvzuhxaHMXOLWFAFT6720-23-35 07:20:000.5[facility] IjmofpgAOXGOSFFEJ7344-28-69 07:20:000.9[facility] OQUOSBJKLK9719-79-41 07:20:0074.8[facility] OouztryUYOKENOFSK3188-65-89 01:01:31 2.72[facility] QjhvmkzFVQDJFPFSK5424-58-46 01:01:318.8[facility] HermannHEMATOLOGY 2012-08-31 01:01:31 Test Item Value Reference Range Interpretation Comments MCH (test code = MCH) 24.6 pg 27.0-31.0 L [facility] JhardixFKPJWPNRIU5958-85-81 01:01:3122.3[facility] HermannHEMATOLOGY 2012-08-31 01:01:3182.0[facility] EeqjlebYDSTAVOGOT6868-17-90 01:01:319.9[facility] RatiimaIOLIBYMIWD6883-79-46 01:01:3130.0[facility] AcmbztlPGOVOLWIOV3095-01-62 01:01:3118.0[facility] TrkpeknEMWGJNOLUK5591-37-51 01:01:3185[facility] [place] LRFRQGTQHA4353-25-73 01:01:316.7[facility] FgcdfyoNFISKUHOLY9626-22-43 01:01:317.3 [facility] ArnhcurPRTGEFTGSE4609-34-95 01:01:310.2[facility] HermannHEMATOLOGY 2012-08-31 01:01:310.6[facility] GimfixlLUNDQLMUXJ3472-60-24 01:01:310.1[facility] XrrjklaQFDNOJHGMJ7222-48-01 01:01:310.8[facility] PnhqsboYURPOUSPKW2901-72-89 01:01:317.0[facility] XawqokrJUVZEAOGHQ5027-87-00 01:01:318.9[facility] [place] JHCGQDSVAE4199-98-17 01:01:311.3[facility] HmyhkykCVOBBMACTE5886-88-04 01:01:31 82.6[facility] SuiexkaGCBCMEAOBV2207-67-30 09:58:36241Lflaumpf HermannHEMATOLOGY 2012-08-30 09:58:00 Test Item Value Reference Range Interpretation Comments PTT (test code = PTT) 27.4 s 22.9-35.8 N [facility] XambibtXYSBHHSZBV1452-14-85 09:58:001.11[facility] HermannHEMATOLOGY 2012-08-30 09:58:00 Test Item Value Reference Range Interpretation Comments PT (test code = PT) 14.5 s 12.0-14.7 N [facility] WWLKODR7226-47-35 05:00:00Product available (08/30/2012 00:00:00)[facility] XoaluneWXLOGBMWJ7496-37-70 16:40:00Negative (08/29/2012 11:40:00)[facility] YlypmegJITPQCZINP0926-65-53 16:40:00Few /LPF (08/29/2012 11:40:00)[facility] NykmanxXDHSEAIRIA1161-78-30 16:40:00None Seen (08/29/2012 11:40:00)[facility] UendymgSBURRMBJXY5601-41-85 16:40:00None Seen (08/29/2012 11:40:00)[facility] CmkocpcUCFTCASEDW1919-28-30 16:40:00None Seen (08/29/2012 11:40:00)[facility] AxkbllzIUNRHUTLXH7019-87-06 16:40:00None Seen (08/29/2012 11:40:00)[facility] WuxxlzzWMPXEMRFFV2218-48-65 16:40:00Negative mg/dL (08/29/2012 11:40:00)[facility] VdqxiqnHIADOYBQSM9489-39-32 16:40:00 Test Item Value Reference Range Interpretation Comments UA Spec Grav (test code = UA Spec 1.010 1 N Grav) [facility] XrmhoolCRLUGJTHVF4198-24-20 16:40:00Negative mg/dL (08/29/2012 11:40:00)[facility]zzmxnlWUQUCDAUDF2295-17-91 16:40:000.2[facility] EECWCONXAR7245-89-86 16:40:00Negative mg/dL *NA*(08/29/2012 11:40:00)[facility] ErhlrvtRPLCJJTDME9032-09-83 16:40:00Negative *NA*(08/29/2012 11:40:00)[facility] XqaobraPILPNLWBTP3902-79-60 16:40:00Negative (08/29/2012 11:40:00)[facility] CenterAyaticwAUKUUGNTKS0925-79-20 16:40:00Negative (08/29/2012 11:40:00)[facility] CenterBswdikyAJDVGFQSNY1103-00-14 16:40:00Negative (08/29/2012 11:40:00)[facility] VrvggqbLFNABUHNNM6698-28-88 16:40:00 Test Item Value Reference Range Interpretation Comments UA pH (test code = UA pH) 6.0 1 5.0-8.0 N [facility] UvdjxezUSLYJZDQAF0810-11-71 16:40:00Clear (08/29/2012 11:40:00)[facility] CenterCjwujijFQROBWRYLJ4799-40-29 16:40:00Yellow *NA*(08/29/2012 11:40:00)[facility] KscmospPQDGMIGENT5138-52-78 15:51:00 Test Item Value Reference Range Interpretation Comments Max Amp (test code = Max Amp) 34 mm 52-71 L [facility] NblllupCVJXEDFVMX3174-41-70 15:51:002.6[facility] HermannHEMATOLOGY 2012-08-29 15:51:000.0[facility] GfvcbooCUQTBISKMP5621-71-41 15:51:00 Test Item Value Reference Range Interpretation Comments ACT (TEG) (test code = ACT (TEG)) 105 s 86-118 N [facility] YyodsttJXDJOBWNVJ7110-62-11 15:51:00 Test Item Value Reference Range Interpretation Comments Split Point (test code = Split Point) 0.4 min [facility] GshwasyYADJIWABHB8942-46-68 15:51:00 Test Item Value Reference Range Interpretation Comments Angle (test code = Angle) 53 degrees 64-80 L [facility] MbwtzrnSOWTZDASNI7190-36-66 15:51:00 Test Item Value Reference Range Interpretation Comments R-time (test code = R-time) 0.6 min 0.4-0.7 N [facility] TrzzvpdSIQNKEERWM6598-60-86 15:51:00 Test Item Value Reference Range Interpretation Comments K-time (test code = K-time) 6.6 min 0.6-2.3 H [facility] SpotlightOOD BANK JWHGSNV9679-81-07 15:50:00Negative (08/29/2012 10:50:00)[facility] MrdgpkxRSHYGBNTX8578-18-51 15:50:003.4[facility] JHDGBEOPO5057-65-21 15:50:000.0[facility] CraedasNSUBZVKID7028-09-26 15:50:000.9 [facility] XzzvjjdCUMFXVARC9955-62-82 15:50:006.5[facility] HermannCHEMISTRY 2012-08-29 15:50:003.1[facility] DbezggoWLKEDPTDJ4544-84-77 15:50:0061[facility] UvdemfxGRSYEEABF3473-28-59 15:50:000.1[facility] RdwayixBXKTPZPEF0661-92-20 15:50:0021[facility] VkbtrfqQDTIXSBKM6744-75-53 15:50:0024[facility] [place] ZBSJFGNIC1510-78-77 15:50:000.1[facility] SjjttmgIIJDRJPYE4681-17-31 15:50:0017.2 [facility] QvllnfmKXLQRVDPT9180-38-71 15:50:46200Uxuqewyn HermannCHEMISTRY 2012-08-29 15:50:0023[facility] NjulynqQICNPBBKB4027-06-30 15:50:007.9[facility] UploqxnXSVJVUZLT1265-46-97 15:50:004[facility] AdkcngrONAZXEYLY5828-53-94 15:50:00 90[facility] XatozttVEMPYOHFX2480-03-13 15:50:004.2[facility] HermannCHEMISTRY 2012-08-29 15:50:94650Aqimemkc ZkkzdsnTQGKRDWBP6662-43-11 15:50:000.5[facility] NzxdvmqQOIBLJPTE2716-83-87 15:50:55777Egiwsrmx OwdxkkpBSIBKCWGIO4040-82-22 15:50:000.0[facility] GptlcnxXSKIDWBBKF0439-74-77 15:50:000.0[facility] WOBQVRTFOT2077-15-21 15:50:00Normal (08/29/2012 10:50:00)[facility] FCYNVOBPHW3033-88-51 15:50:001+ *ABN*(08/29/2012 10:50:00)[facility] GCICMBGQJV4058-30-58 15:50:00Slight (08/29/2012 10:50:00)[facility] RBOWRVZXYL7386-69-67 15:50:00Slight (08/29/2012 10:50:00)[facility]
[2020-05-02 23:02] LABS: Absolute Lymphocytes (CBC) 2.1 K/uL (0.7-4.9); MPV 9.5 fL (7.6-11.3)
[2020-05-02 23:04] LABS: Hematocrit 9.6 % (36.0-45.0)
[2020-05-02 23:08] LABS: Protime INR 1.27
[2020-05-02 23:16] LABS: Potassium 3.8 mmol/L (3.5-5.1)
[2020-05-02] MEDS ORDERED: NA CHLORIDE 0.9% 1,000 ML ONE (23:26)
[2020-05-02] MEDS ORDERED: FENTANYL CITR 100 MCG/2 ML ONE (23:26)
[2020-05-02] MEDS ORDERED: ONDANSETRON 4 MG/2 ML VIAL ONE (23:26)
[2020-05-02 23:32] LABS: ALT/SGPT 8 U/L (12-78); AST/SGOT 4 U/L (15-37); Albumin 3.8 g/dL (3.4-5.0); Alkaline Phosphatase 51 U/L (45-117); Bilirubin Direct < 0.1 mg/dL (0-0.2); Bilirubin Total 0.3 mg/dL (0.2-1.0); Magnesium 2.6 mg/dL (1.8-2.4); Protein, Total 7.4 g/dL (6.4-8.2)
[2020-05-02 23:54] LABS: Blood Morphology Comment NOTED (NOT SEEN); Hypochromasia 3+; Platelet Estimate DECR; Stomatocytes 1+; White Blood Cell Scan OK (OK)
--- NOTE | 2020-05-03 00:52 | EDPHYS ---
Physician Documentation [facility] Name: Bri Boyd Age: 34 yrs Sex: Female : 1985 Arrival Date: 05/02/2020 Time: 20:54 Bed 5 Private MD: ED Physician Blake Tang HPI: 05/02 22:25 This 34 yrs old Female presents to ER via Ambulatory with complaints of cp Lethargic, General Weakness, Dizziness. 22:25 The patient presents with vaginal bleeding that is heavy, with clots. cp 22:25 Onset: The symptoms/episode began/occurred 3 week(s) ago. Associated signs and cp symptoms: Pertinent positives: dizziness, general weakness, fatigue, shortness of breath. Severity of symptoms: in the emergency department the symptoms are unchanged, despite home interventions. The patient's method of control includes nothing. 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 - Social history:: Smoking status: Patient denies any tobacco usage or history of. ROS: 22:30 Constitutional: Negative for body aches, chills, fever, poor PO intake. cp 22:30 Eyes: Negative for injury, pain, redness, and discharge. cp 22:30 Cardiovascular: Positive for edema, Negative for chest pain, palpitations. 22:30 Respiratory: Positive for shortness of breath, on exertion. Negative for cough, wheezing. 22:30 Abdomen/GI: Negative for abdominal pain, nausea, vomiting, and diarrhea, constipation, black/tarry stool, rectal bleeding. 22:30 : Positive for vaginal bleeding, Negative for urinary symptoms. 22:30 Neuro: Positive for dizziness, near syncope, weakness, Negative for altered mental status, headache, syncope. 22:30 All other systems are negative. Exam: 22:35 Constitutional: The patient appears in no acute distress, alert, awake, cp non-diaphoretic, non-toxic, well developed, well nourished. 22:35 Head/Face: Normocephalic, atraumatic. cp 22:35 Eyes: Periorbital structures: appear normal, Pupils: equal, round, and reactive to light and accomodation, Extraocular movements: intact throughout, Conjunctiva: normal, no exudate, no injection, Sclera: no appreciated abnormality, Lids and lashes: appear normal, bilaterally. 22:35 ENT: External ear(s): are unremarkable, Nose: is normal, Mouth: Lips: moist, Oral mucosa: moist, Posterior pharynx: Airway: no evidence of obstruction, patent. 22:35 Neck: ROM/movement: pain, is not appreciated, limited range of motion, is not appreciated. 22:35 Chest/axilla: Inspection: normal, Palpation: is normal, no crepitus, no tenderness. 22:35 Cardiovascular: Rate: normal, Rhythm: regular, Edema: ankle edema, that is very mild, JVD: is not appreciated. 22:35 Respiratory: the patient does not display signs of respiratory distress, Respirations: normal, no use of accessory muscles, no retractions, labored breathing, is not present, Breath sounds: are clear throughout, no decreased breath sounds, no stridor, no wheezing. 22:35 Abdomen/GI: Inspection: abdomen appears normal, Bowel sounds: active, all quadrants, Palpation: soft, in all quadrants, mild abdominal tenderness, in all quadrants, rebound tenderness, is not appreciated, voluntary guarding, is not appreciated, involuntary guarding, is not appreciated. 22:35 Neuro: Orientation: to person, place \T\ time. Mentation: is normal, Cerebellar function: is grossly normal, Motor: moves all fours, strength is normal, Sensation: is normal. Vital Signs: 21:01 BP 108 / 87; Pulse 96; Resp 16; Temp 98.5; Pulse Ox 100% ; Weight 68.04 kg; Height 5 ll1 ft. 6 in. (167.64 cm); Pain 7/10; 22:42 BP 109 / 56; Pulse 92; Resp 18; Pulse Ox 100% on R/A; mg2 05/03 00:00 BP 99 / 52; Pulse 80; Resp 16; Pulse Ox 98% ; rr5 01:00 BP 114 / 61; Pulse 95; Resp 19; Pulse Ox 98% ; rr5 02:00 BP 110 / 65; Pulse 78; Resp 18; Temp 98.5; Pulse Ox 100% on R/A; mg2 03:22 BP 104 / 52; Pulse 78; Resp 18; Temp 98.5; Pulse Ox 100% on R/A; mg2 05/02 21:01 Body Mass Index 24.21 (68.04 kg, 167.64 cm) ll1 MDM: 05/02 22:17 Patient medically screened. 23:53 Physician consultation: Gilson Underwood MD was called at 23:54, left message on voicemail. 05/03 00:00 Data reviewed: vital signs, nurses notes, lab test result(s), I have discussed the cp patient's presentation/case with the attending Emergency Department Physician; and as a result, I will transfer patient. 00:49 Physician consultation: Gilson Underwood MD was called at 00:49, left message on cp voicemail. 01:27 Physician consultation: was contacted at 01:28, regarding regarding transfer, to [facility]. DR Quinteros, [employer], will not accept patient due to no available ICU bed. 05/02 22:13 Order name: Basic Metabolic Panel; Complete Time: 23:19 mg2 05/02 22:13 Order name: CBC with Diff; Complete Time: 01:17 mg2 05/02 22:13 Order name: [facility] 05/02 22:29 Order name: PT-INR; Complete Time: 23:19 cp 05/02 22:29 Order name: Ptt, Activated; Complete Time: 23:19 cp 05/02 22:29 Order name: Magnesium; Complete Time: 23:52 cp 05/02 22:29 Order name: Hepatic Function; Complete Time: 23:52 cp 05/02 23:06 Order name: CBC Smear Scan; Complete Time: 01:17 EDMS 05/02 23:31 Order name: Packed RBC Leukored EDAZ 05/03 00:47 Order name: COVID-19 cp 05/03 00:47 Order name: Antibody Identification EDAZ 05/02 22:13 Order name: IV Saline Lock; Complete Time: 22:17 mg2 05/02 22:13 Order name: Labs collected and sent; Complete Time: 22:17 mg2 05/02 22:13 Order name: NPO; Complete Time: : mg2 05/02 22:56 Order name: US Transvaginal Study (Probe) cp 05/03 01:06 Order name: COVID-19/FLU A+B; Complete Time: 01:17 EDMS 05/03 01:26 Order name: Urine Dipstick--Ancillary (enter results); Complete Time: 02:05 mw2 05/03 01:26 Order name: Urine --Ancillary (enter results); Complete Time: 02:05 mw2 05/02 22:13 Order name: Urine Dipstick-Ancillary (obtain specimen); Complete Time: 02:26 mg2 05/02 22:30 Order name: Urine Test (obtain specimen); Complete Time: 02:26 cp 05/02 22:54 Order name: Pelvic Exam Setup; Complete Time: 23:16 cp 05/03 01:21 Order name: Transfuse: emergency blood; Complete Time: 02:26 cp Administered Medications: 05/02 23:15 Drug: Zofran (Ondansetron) 4 mg Route: IVP; Site: left antecubital; mg2 05/03 00:59 Follow up: Response: No adverse reaction mg2 05/02 23:16 Drug: fentaNYL (PF) 25 mcg Route: IVP; Site: left antecubital; mg2 05/03 00:59 Follow up: Response: No adverse reaction mg2 00:52 Drug: NS 0.9% 1000 ml Route: IV; Rate: 1 bolus; Site: right antecubital; mg2 01:30 Follow up: Response: No adverse reaction; IV Status: Completed infusion; IV Intake: mg2 1000ml 00:58 Drug: fentaNYL (PF) 25 mcg Route: IVP; Site: right antecubital; mg2 01:28 Follow up: Response: No adverse reaction mg2 01:55 Drug: Benadryl 12.5 mg Route: IVP; Site: right antecubital; mg2 03:21 Follow up: Response: No adverse reaction mg2 01:56 Drug: Solu-CORTEF 50 mg Route: IVP; Site: right antecubital; mg2 03:21 Follow up: Response: No adverse reaction mg2 01:57 Drug: Acetaminophen 650 mg Route: PO; mg2 03:20 Follow up: Response: No adverse reaction mg2 03:20 Drug: fentaNYL (PF) 25 mcg Route: IVP; Site: right antecubital; mg2 03:20 Follow up: Response: No adverse reaction; given prior to transfer mg2 Disposition: 07:04 Co-signature as Attending Physician, Blake Tang MD. 7 Disposition: 05/03/20 00:52 Transfer ordered to [facility]. Diagnosis are Anemia in other chronic diseases classified elsewhere, Abnormal uterine and vaginal bleeding, unspecified. - Reason for transfer: Higher level of care. - Accepting physician is DR Cummins. - Condition is Stable. - Problem is new. - Symptoms have improved. Signatures: Dispatcher [employer] EDAZ Gm Lopez PA PA cp Marv Gong RN MCKENZIE [facility] Eleanor Arboleda RN RN ll1 Blake Tang MD MD 7 Corrections: (The following items were deleted from the chart) 05/02 22:21 22:15 ABO/RH TYPING+BB.LAB.BRZ ordered. [facility] 22:51 22:31 CORONAVIRUS+MR.LAB.BRZ ordered. [facility] EDAZ 22:51 22:31 Influenza Screen (A \T\ B)+BA.LAB.BRZ ordered. [facility] 05/03 02:23 00:52 05/03/2020 00:52 Transfer ordered to [facility]. Diagnosis is Anemia in other cp chronic diseases classified elsewhere; Abnormal uterine and vaginal bleeding, unspecified. Reason for transfer: Higher level of care. Accepting physician is Doctor. Condition is Stable. Problem is new. Symptoms have improved. cp 02:26 05/02 22:30 [place] ordered. cp mg2 05/03 03:23 02:23 05/03/2020 00:52 Transfer ordered to [facility]. Diagnosis is Anemia in mg2 other chronic diseases classified elsewhere; Abnormal uterine and vaginal bleeding, unspecified. Reason for transfer: Higher level of care. Accepting physician is DR Cummins. Condition is Stable. Problem is new. Symptoms have improved. cp
--- NOTE | 2020-05-03 00:52 | ER ---
Nurse's Notes [facility] Name: Bri Boyd Age: 34 yrs Sex: Female : 1985 Arrival Date: 05/02/2020 Time: 20:54 Bed 5 Private MD: Diagnosis: Anemia in other chronic diseases classified elsewhere;Abnormal uterine and vaginal bleeding, unspecified Presentation: 05/02 21:01 Chief complaint: Patient states: 2 episodes of heavy vaginal bleeding this month. ll1 States she feels weak, lethargic, dizzy, pale. Coronavirus screen: Client denies travel out of the [place] in the last 14 days. At this time, the client does not indicate any symptoms associated with coronavirus-19. Ebola Screen: Patient denies travel to an Ebola-affected area in the 21 days before illness onset. Initial Sepsis Screen: Does the patient meet any 2 criteria? HR > 90 bpm. No. Patient's initial sepsis screen is negative. Does the patient have a suspected source of infection? No. Patient's initial sepsis screen is negative. Risk Assessment: Do you want to hurt yourself or someone else? Patient reports no desire to harm self or others. Onset of symptoms was April 17, 2020. 21:01 Method Of Arrival: Ambulatory ll1 21:01 Acuity: KRAIE 2 ll1 Triage Assessment: 21:04 General: Appears uncomfortable, Behavior is calm, cooperative, appropriate for age. ll1 Pain: Complains of pain in bones ache Quality of pain is described as aching. Neuro: No deficits noted. Cardiovascular: No deficits noted. Respiratory: No deficits noted. GI: Abdomen is flat, Bowel sounds present X 4 quads. Reports nausea. : Reports vaginal bleeding that is bright red, with clots, heavy flow. 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 - Social history:: Smoking status: Patient denies any tobacco usage or history of. Screenin:18 Abuse screen: Denies threats or abuse. Denies injuries from another. Nutritional mg2 screening: No deficits noted. Tuberculosis screening: No symptoms or risk factors identified. Fall Risk IV access (20 points). Assessment: 22:18 General: Appears in no apparent distress. comfortable, Behavior is calm, cooperative. mg2 Pain: Denies pain. Neuro: Level of Consciousness is awake, alert, obeys commands, Oriented to person, place, time, situation. Cardiovascular: Capillary refill < 3 seconds Patient's skin is warm and dry. Respiratory: Reports shortness of breath Airway is patent Respiratory effort is even, unlabored, Respiratory pattern is regular, symmetrical. GI: No signs and/or symptoms were reported involving the gastrointestinal system. : Reports vaginal bleeding that is with clots, heavy flow. EENT: No signs and/or symptoms were reported regarding the EENT system. Derm: Skin is intact, Skin is pale. Musculoskeletal: Circulation, motion, and sensation intact. 23:05 Reassessment: Hgb 2.6 Hct 9.6 called form laboratory by [facility] ED provider aware. rr5 05/03 01:30 Reassessment: Patient appears in no apparent distress at this time. mg2 02:42 Reassessment: report called to MCKENZIE Cotter of ICU4 [facility]. mg2 03:21 Reassessment: patient is awake alert oriented x4, 2 IV in placed, patent with blood mg2 transfusion ongoing. report given to eMS. Vital Signs: 05/02 21:01 BP 108 / 87; Pulse 96; Resp 16; Temp 98.5; Pulse Ox 100% ; Weight 68.04 kg; Height 5 ll1 ft. 6 in. (167.64 cm); Pain 7/10; 22:42 BP 109 / 56; Pulse 92; Resp 18; Pulse Ox 100% on R/A; mg2 05/03 00:00 BP 99 / 52; Pulse 80; Resp 16; Pulse Ox 98% ; rr5 01:00 BP 114 / 61; Pulse 95; Resp 19; Pulse Ox 98% ; rr5 02:00 BP 110 / 65; Pulse 78; Resp 18; Temp 98.5; Pulse Ox 100% on R/A; mg2 03:22 BP 104 / 52; Pulse 78; Resp 18; Temp 98.5; Pulse Ox 100% on R/A; mg2 05/02 21:01 Body Mass Index 24.21 (68.04 kg, 167.64 cm) ll1 ED Course: 05/02 20:54 Patient arrived in ED. bp1 21:04 Triage completed. ll1 21:04 Arm band placed on. ll1 21:55 Gm Lopez PA is PHCP. cp 21:56 Blake Tang MD is Attending Physician. cp 21:57 Marv Gong, MCKENZIE is Primary Nurse. mg2 22:19 Patient has correct armband on for positive identification. mg2 22:19 Inserted saline lock: 20 gauge in right antecubital area, using aseptic technique. mg2 Blood collected. 22:43 COVID swab sent to lab. Flu and/or RSV swab sent to lab. mg2 22:53 Lab(s) recollected, by me, sent to lab. T\T\S collected, blood band applied to patient. jp3 Inserted saline lock: 20 gauge in left antecubital area, using aseptic technique. Blood collected. Patient maintains SpO2 saturation greater than 95% on room air. 05/03 00:30 Assist provider with pelvic exam: Set up pelvic tray. Performed by Gm BECERRIL mg2 Patient tolerated. 01:00 ultrasound at bedside. rr5 01:04 initiated a transfer with Prosper Zapatanelson from [facility]. 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 mw2 01:26 Prosper called back to inform us that [facility] is going to have to decline due to no ICU beds. mw2 01:28 initiated a transfer with Gaye Adolfo from [facility] [place]. mw2 01:34 US Transvaginal Study (Probe) In Process Unspecified. EDMS 01:39 Gaye Mata called to inform us that [facility] is going to decline due to no ICU beds. mw2 01:54 initiated a transfer with Xavier from [facility]. mw2 02:04 Ultrasound completed. Patient tolerated well. Notified SERVICE SHOP FOREMAN/PA robert. sg3 02:09 administrative approval given by Joelle Mcallister/ patient has been accepted to [place] [id number] [facility] ICU bed 4/ Dr. Cummins has accepted the patient in transfer/ report to be called to [phone]. 03:23 Patient transferred, IV remains in place. mg2 Administered Medications: 05/02 23:15 Drug: Zofran (Ondansetron) 4 mg Route: IVP; Site: left antecubital; mg2 05/03 00:59 Follow up: Response: No adverse reaction mg2 05/02 23:16 Drug: fentaNYL (PF) 25 mcg Route: IVP; Site: left antecubital; mg2 05/03 00:59 Follow up: Response: No adverse reaction mg2 00:52 Drug: NS 0.9% 1000 ml Route: IV; Rate: 1 bolus; Site: right antecubital; mg2 01:30 Follow up: Response: No adverse reaction; IV Status: Completed infusion; IV Intake: mg2 1000ml 00:58 Drug: fentaNYL (PF) 25 mcg Route: IVP; Site: right antecubital; mg2 01:28 Follow up: Response: No adverse reaction mg2 01:55 Drug: Benadryl 12.5 mg Route: IVP; Site: right antecubital; mg2 03:21 Follow up: Response: No adverse reaction mg2 01:56 Drug: Solu-CORTEF 50 mg Route: IVP; Site: right antecubital; mg2 03:21 Follow up: Response: No adverse reaction mg2 01:57 Drug: Acetaminophen 650 mg Route: PO; mg2 03:20 Follow up: Response: No adverse reaction mg2 03:20 Drug: fentaNYL (PF) 25 mcg Route: IVP; Site: right antecubital; mg2 03:20 Follow up: Response: No adverse reaction; given prior to transfer mg2 Medication: 03:20 Blood products: PRBCs X 2 units given. mg2 Intake: 01:30 IV: 1000ml; Total: 1000ml. mg2 Outcome: 00:52 ER care complete, transfer ordered by . cp 03:23 Transferred by ground EMS [facility] Transfer form completed. mg2 03:23 Condition: stable 03:23 Instructed on the need for transfer, Demonstrated understanding of instructions. 03:23 Patient left the ED. mg2 Signatures: Dispatcher [employer] EDMS Gm Lopez PA PA cp Godinez, Sarah sg3 Massiel Carmona mw2 Marv Gong RN RN mg2 Gold Shepard jp3 Ubaldo Batista RN RN rr5 Eleanor Arboleda RN RN ll1 Esthela Sadler Corrections: (The following items were deleted from the chart) 03:23 01/16 22:19 No provider procedures requiring assistance completed. mg2 mg2
[2020-05-03 01:05] LABS: SARS-COV-2 RT PCR NEGATIVE (NEGATIVE)
[2020-05-03] MEDS ORDERED: NA CHLORIDE 0.9% 250 ML ONE (01:51)
[2020-05-03 01:56] LABS: Urine Blood 2+ (NEG); Urine Glucose NEGATIVE (NEG); Urine Protein 2+ (NEG); Urine Specific Gravity 1.025 (1.005-1.030)
[2020-05-03] MEDS ORDERED: DIPHENHYDRAMINE 50 MG/ML VIAL ONE (02:02)
[2020-05-03] MEDS ORDERED: ACETAMINOPHEN 325 MG TABLET ONE (02:02)
[2020-05-03] MEDS ORDERED: HYDROCORTISONE SUC 100 MG INJ ONE (02:02)
[2020-05-03] MEDS ORDERED: FENTANYL CITR 100 MCG/2 ML ONE (03:29)
[2020-05-03 03:33] VITALS: TEMP 98.5
[2020-05-03 03:38] VITALS: O2SAT 100
[2020-05-03 03:40] VITALS: BP 104/52
--- NOTE | 2020-05-04 13:00 | RAD REPORT ---
EXAM DESCRIPTION: US - Transvaginal Study Probe - 05/03/2020 1:34 am CLINICAL HISTORY: VAGINAL BLEEDING TECHNIQUE: Transvaginal real-time and helton scale sonographic imaging of the pelvis was performed. COMPARISON: None available for comparison FINDINGS: Uterus: The uterus is anteverted and measures 9.2 x 3.7 x 5.2 cm. Endometrium: 7 mm in thickness. Hypoechoic area at the lower aspect of the endometrium measuring appr oximately 1.4 x 0.7 x 0.7 cm. No demonstrable vascularity on color Doppler interrogation. Right ovary: The right ovary is not visualized. Left ovary: The left ovary is not visualized. Free fluid: None IMPRESSION: Focal hypoechoic area at the lower aspect of the endometrium measuring approximately 1.4 x 0.7 x 0.7 cm possibly related to hemorrhagic products. No demonstrable vascularity on color Dopple r interrogation. Consider further imaging in order to evaluate for underlying endometrial mass/polyp. Electronically signed by: Dodie Garcia MD 05/03/2020 4:55 AM APPLICATION SECURITY CONSULTANT Due to temporary technical issues with the PACS/Fluency reporting system, reports are being signed by the in house radiologist without review as a courtesy to ensure prompt reporting. The interpreting r adiologist is fully responsible for the content of the report.
== END 2020-05-03 03:23 ==
LOC: ER 20:51
PROC: 30233N1 Transfusion of Nonautologous Red Blood Cells into Peripheral Vein, Percutaneous Approach (ICD-10-PCS; principal; 2020-05-03)
DX: D69.1 Qualitative platelet defects (principal); D63.8 Anemia in other chronic diseases classified elsewhere; N93.9 Abnormal uterine and vaginal bleeding, unspecified; Z88.6 Allergy status to analgesic agent; Z88.8 Allergy status to other drugs, medicaments and biological substances
CPT/HCPCS: 0240U; 36415; 36430; 76830; 80048; 80076; 81003; 81025; 83735; 85025; 85610; 85730; 86850; 86870; 86900; 86901; 86922; 99285; J1200; J1720; J2405; J3010; J7030; J7050; P9016

== ENCOUNTER 2020-06-14 15:50 | Emergency (ER) | payer SELFPAY ==
[2011-10-11 08:00] VITALS: BP 101/57
--- OUTSIDE RECORDS SUMMARY | 2020-06-14 16:01 | XMS REPORT | Continuity of Care Document ---
:1985 Author Organization [facility] Address [address] [place] [place] [address] Care Team Providers Name Role Phone Misael RINCON Attending Clinician Unavailable Leta Baker RN Attending Clinician Unavailable Mabel Woods MD Attending Clinician Visit, Nurse Attending Clinician Unavailable Roger MARIEE, N Attending Clinician Holger Upton MD Attending Clinician Amisha Alford MD Attending Clinician Dl SANDRA Attending Clinician Ultrasound Attending Clinician Unavailable Risk Attending Clinician Unavailable Syd MARIEE, R Attending Clinician Pool, Resident Attending Clinician Unavailable 2, Mfm Usg Room Attending Clinician Unavailable Doctor Unassigned, Name Attending Clinician Unavailable Aries SANDRA Attending Clinician Faculty, [facility] Attending Clinician Unavailable Damien Olmos MD Attending Clinician Guille Attending Clinician Nadya Wilson Attending Clinician Sharon Vázquez Attending Clinician Sharita Sánchez Attending Clinician Mabel Gunter Attending Clinician Mabel Woods MD Admitting Clinician Dl SANDRA Admitting Clinician Damien Olmos MD Admitting Clinician Guille Admitting Clinician Chaparro Jeffrey Admitting Clinician Mariam Bills Admitting Clinician Sharita Sánchez Admitting Clinician Mabel Gunter Admitting Clinician Payers Payer Name Policy Type Policy Number Effective Date Expiration Date S ource Problems Condition Condition Condition Status Onset Resolution Last Treating Co mments Source Name Details Category Date Date Treatment Clinician Date FALL Diagnosis Active 2015-12-17 Mem oria 12-16 20:51:00 l FALL 00:00: Gerardo 00 Active 12/17/2015 [facility] FAILED Diagnosis Active 2015-12-24 Mem oria ANKLE 12-16 21:57:00 l HARDWARE FAILED 00:00: Jonel n ANKLE 00 HARDWARE Active 12/17/2015 [facility] ANEMIA/DEVAN Diagnosis Active 2015-06-30 Memoria TTING 3-14 11:26:00 l DISORDERS/ 00:00: Jonel n RUPTURED ANEMIA/DEVAN 00 OVARI TTING DISORDERS/ RUPTURED OVARI Active 06/29/2015 [facility] LEFT PILON Diagnosis Active 2015-05-29 Memoria FRACTURE 2- 21:54:00 l LEFT 00:00: [place] PILON 00 FRACTURE Active 05/20/2015 [facility] RUPTURE Diagnosis Active 2015-05-09 Me moria OVARIAN 05-09 06:38:00 l CYST RUPTURE 00:00: Gerardo OVARIAN 00 CYST Active 05/09/2015 [facility] RUPTURE Diagnosis Active 2015-05-11 Md moria HEMORRHAGI 05-09 09:58:00 l C OVARIAN RUPTURE 00:00: Herm melissa CYST,ABD HEMORRHAGI 00 LIBRADO C OVARIAN CYST,ABD LIBRADO Active 05/09/2015 [facility] TIB FIB Diagnosis Active 2014-042015-04-14 Me moria FRACTURE 18:05:00 l TIB FIB 00:00: [place] FRACTURE 00 Active 04/14/2015 [facility] LT TIB/FIB Diagnosis Active 2014-042015-04-22 Memoria FX 2- 21:56:00 l LT 00:00: [place] TIB/FIB FX 00 Active 04/14/2015 [facility] CHOLATITHI Diagnosis Active 2012-09-20 Memoria ASIS 5-15 13:56:00 l 00:00: Gerardo CHOLATITHI 00 ASIS Active 08/29/2012 [facility] Final: Problem 2015-05-29 Memor ia Nondisplac 02:20:59 l ed pilon Final: Jonel n fracture Nondisplac of ed pilon unspecifie fracture d tibia, of initial unspecifie encounter d tibia, for closed initial fracture encounter for closed fracture 05/29/2015 [facility] Cholecysti Problem Resolve 2015-12-23 Memoria tis d 00:16:33 l (disorder) Jonel n Cholecysti tis (disorder) Resolved Problem 12/23/2015 [facility] Glanzmann' Problem Resolve 2015-12-23 Memoria s d 00:16:33 l thrombasth Jonel n enia [facility] (disorder) s thrombasth enia (disorder) Resolved Problem 12/23/2015 [facility] Viral Problem Resolve 2015-12-23 Rafi daniele hepatitis d 00:16:33 l C Viral Gerardo (disorder) hepatitis C (disorder) Resolved Problem 12/23/2015 [facility] Cholecysti Problem Resolve 2012-09-03 Memoria tis d 20:31:03 l [place] Cholecysti tis Resolved Problem 09/03/2012 [facility] Glanzmann Problem Resolve 2012-09-03 M emoria thromboast d 20:31:03 l henia Gerardo Glalizbetmann thromboast henia Resolved Problem 09/03/2012 [facility] Hepatitis Problem Resolve 2012-09-03 M emoria C d 20:31:03 l Gerardo Hepatitis C Resolved Problem 09/03/2012 [facility] CHOLELITHI Diagnosis Active 2012-09-20 Memoria ASIS NOS 13:56:00 l [place] CHOLELITHI ASIS NOS Active [facility] UNSP Diagnosis Active 2015-04-22 Mem oria FRACTURE 21:56:00 l OF SHAFT UNSP Gerardo OF LEFT FRACTURE TIBIA, IN OF SHAFT OF LEFT TIBIA, IN Active [facility] UNSP Diagnosis Active 2015-04-22 Mem oria FRACTURE 21:56:00 l OF SHAFT UNSP [place] OF LEFT FRACTURE FIBULA, I OF SHAFT OF LEFT FIBULA, I Active [facility] UNSPECIFIE Diagnosis Active 2015-06-30 Memoria D OVARIAN 11:26:00 l CYSTS [place] UNSPECIFIE D OVARIAN CYSTS Active [facility] ENCNTR FOR Diagnosis Active 2015-05-10 Memoria GENERAL 06:28:00 l ADULT ENCNTR [place] MEDICAL FOR EXAM W/ GENERAL ADULT MEDICAL EXAM W/ Active [facility] MORBID Diagnosis Active 2015-05-10 Mem oria (SEVERE) 06:29:00 l OBESITY MORBID Gerardo DUE TO (SEVERE) EXCESS CA OBESITY DUE TO EXCESS CA Active [facility] NONDISPLAC Diagnosis Active 2015-05-29 Memoria ED PILON 21:54:00 l FRACTURE Gerardo OF UNSP NONDISPLAC TIBI ED PILON FRACTURE OF UNSP TIBI Active [facility] ILLNESS, Diagnosis Active 2015-12-24 M emoria UNSPECIFIE 21:57:00 l D ILLNESS, Jonel n UNSPECIFIE D Active [facility] Allergies, Adverse Reactions, Alerts Allergy Allergy Status Severity Reaction(s) Onset Inactive Treating Comm ents Source Name Type Date Date Clinician iron DA [facility] [place] asprin DA [facility] [place] NSAIDs NSAIDs Active Memoria l Gerardo aspirin aspirin Active Memoria l Gerardo Iron Iron Active Memoria l Gerardo Social History Social Habit Start Date Stop Date Quantity Comments Source Social History 2015-05-20 2015-05-20 [facility] ermann 23:22:12 23:22:12 Medications Ordered Filled Start Stop Current Ordering Indication Dosage Frequency Signature Comments Components Source Medication Medication Date Date Medication? Clinician (SIG) Name Name 0.3 ML No 30 mg, Memoria Enoxaparin 9-04 SUB-Q, l sodium 100 21:22: Q12H, X [...] ia 12-19 (Same as: l 19:00: Neurontin) [place] 00 Acetaminoph No Notes: Do M emoria en 325 MG / 12-19 not exceed l Hydrocodone 18:57: 4gm/day of [place] Bitartrate 00 acetaminop 10 MG Oral hen. Tablet (Same as: [[place] 10/325] 325/10) Acetaminoph No Notes: Rafi daniele en 325 MG / 12-19 (Same as: l Hydrocodone 18:21: [place] nn Bitartrate 00 325/5) Do 5 MG Oral not exceed Tablet 4gm/day of [[place] acetaminop 5/325] hen. Acetaminoph No Notes: Rafi daniele en 325 MG / 12-19 (Same as: l Hydrocodone 18:19: [place] nn Bitartrate 00 325/5) Do 5 MG Oral not exceed Tablet 4gm/day of [[place] acetaminop 5/325] hen. Calcium No Notes: Memoria Gluconate 12-19 WASTE: F/P l 12:46: - Sink; E [place] - [facility] Trash Bin sodium No 250 [...] l de 5 MG 02:15: Roxicodone Herm melsisa Oral Tablet 00 ) heparin No 5,000 Memoria sodium, 12-19 unit, l porcine 02:00: Route: Gerardo 2500 UNT/ML 00 SUB-Q, Injectable Drug form: Solution INJ, Q12H, Dosing Weight 68.182, kg, Start date: 12/19/15 21:00:00 CDT, Duration: 30 day, Stop date: 01/18/16 9:00:00 CDT Tramadol No Notes: Not Mem oria 12-19 to exceed l 01:52: 400mg/day. Gerardo 00 (Same As: Ultram) Celebrex No Notes: Memoria 12-18 NSAID. l 21:25: Please Gerardo 00 check indication . Not for seizure. (Same As: CeleBREX) ferrous No Notes: Memoria sulfate 12-18 Give with l 19:30: food. "Do Gerardo 00 Not Crush" Calcium No 500 mg, 1 Memor ia Gluconate 12-18 tab, l 500 MG Oral 18:00: Route: PO, [place] Tablet 00 Drug form: TAB, TID, Dosing Weight 68.182, kg, Start date: 12/19/15 13:00:00 CDT, Duration: 30 day, Stop date: 01/18/16 9:00:00 CDT Marinol No Notes: Memoria 12-18 (Same as: l 17:00: Marinol) Gerardo Non-Formul rafael Drug. sennosides, No Notes: Rafi daniele [facility] 12-18 (Same as: l 02:00: Senokot) [place] 00 ceFAZolin No Notes: Memori a (SCIP) + 12-17 (Same As: l sodium 23:00: Ancef, [place] chloride 00 Kefzol) 0.9% INJ Cefazolin 100 mL FOR IV SET ONLY MEDICATION WASTE Product Size: 1000 mg Product Wasted: ___ mg Klonopin No Notes: Memoria 12-17 (Same As: l 22:00: KlonoPIN) Gerardo Calcium No 500 mg, 1 Memor ia Gluconate 12-17 tab, l 500 MG Oral 21:40: Route: PO, Gerardo Tablet 00 Drug form: TAB, ONCE, Dosing Weight 68.182, kg, Start date: 12/18/15 16:40:00 CDT, Stop date: 12/18/15 16:40:00 CDT Potassium No Notes: Memori a Chloride 20 12-17 (Same as: l MEQ 21:32: K-Dur 20) [place] Extended 00 "Do Not Release Crush" Tablet With food and full glass of water remove No Notes: Memoria patch 12-17 Remove l 17:00: patch 12 [place] 00 hours after applicatio n each day. Hydromorpho No Notes: Rafi daniele ne 12-17 Same as: l 16:55: Dilaudid Gerardo 00 Flumazenil No Notes: Memor ia 12-17 (Same as: l 16:55: Romazicon) [place] Oxycodone No Notes: Memori a 12-17 (Same as: l 16:55: Roxicodone [place] 00 ) Ondansetron No Notes: Rafi daniele 12-17 (Same as: l 16:55: Zofran) [place] 00 MEDICATION WASTE Product Size: 4 mg Product Wasted: ___ mg Naloxone No Notes: Memoria 12-17 Same as l 16:55: Narcan [place] 00 Amicar No Notes: Memoria 12-17 (Same as: l 16:00: Amicar) Gerardo 00 Ancef No 2 gm, Memoria 12-17 Route: l 15:22: IVPB, [place] 00 ONCE, Dosing Weight 68.182, kg, Start date: 12/18/15 10:22:00 CDT, Duration: 1 doses or times, Stop date: 12/18/15 10:22:00 CDT, Surgical Prophylaxi s Only; For patients < 120 kg Klonopin Yes PO, 0 Memoria 12-17 Refill(s) l 14:03: [place] POLYETHYLEN No Notes: Rafi daniele E GLYCOL 12-17 Dissolve l 3350 14:00: in 8 oz of water or juice. (Same as: Miralax) Docusate No Notes: Memoria 12-17 (Same as: l 14:00: Colace) (Do Not Crush) Streptococc No Notes: Rafi daniele us 12-17 Lightly l pneumoniae 14:00: roll vial He rmann serotype 1 00 (DO NOT capsular SHAKE) antigen before diphtheria administra [id number] tion. protein (Same as: conjugate Prevnar vaccine / 13) Streptococc us pneumoniae serotype 14 capsular antigen diphtheria [id number] protein conjugate vaccine / Streptococc us pneumoniae serotype 18C capsular antigen d Klonopin No Notes: Memoria 12-17 (Same As: l 07:00: KlonoPIN) Potassium No Notes: Memori a Chloride 20 12-17 (Same as: l MEQ 06:13: K-Dur 20) [place] "Do Not Release Crush" Tablet With food and full glass of water Calcium No Notes: Memoria Gluconate 12-17 WASTE: F/P l 06:13: - Sink; E [place] - [facility] Trash Bin gabapentin No Notes: Memor ia 12-17 (Same as: l 05:00: Neurontin) Lidocaine No Notes: Memori a Hydrochlori 12-17 Apply only l de 0.05 05:00: once for Jonel n MG/MG 00 up to 12 Transdermal hours in a Patch 24-hour [Lidoderm] period (12 hours on and 12 hours off). (Same as: Lidoderm) "Remove old patch before applicatio n of new patch" Dilaudid No Notes: Memoria 12-17 Same as: l 04:26: Dilaudid Gerardo 00 Ondansetron No Notes: Rafi daniele 12-17 (Same as: l 04:11: Zofran) [place] 00 MEDICATION WASTE Product Size: 4 mg Product Wasted: ___ mg Methocarbam No Notes: Rafi daniele ol 12-17 (Same l 04:11: as:Robaxin [place] 00 ) Morphine No Notes: Memoria 12-17 (Same l 04:11: as:MORPhin [place] 00 e Sulfate) Oxycodone No Notes: Memori a Hydrochlori 12-17 (Same as: l de 5 MG 04:11: Roxicodone Herm melissa Oral Tablet 00 ) Tramadol No Notes: Not Mem oria 12-17 to exceed l 04:11: 400mg/day. [place] 00 (Same As: Ultram) Melatonin No Notes: Memori a 12-17 (Same as: l 04:11: Melatonin) [place] 00 Acetaminoph No Notes: Max Memoria en [...] Memoria 12-17 Same as: l 01:58: Dilaudid [place] 00 Zofran No Notes: Memoria 12-17 (Same as: l 01:23: Zofran) [place] 00 MEDICATION WASTE Product Size: 4 mg Product Wasted: 0 mg Morphine No Notes: Memoria 12-17 (Same l 01:23: as:MORPhin [place] 00 e Sulfate) 6-Aminocapr Yes 3,000 mg = Memoria oic Acid 3-16 3 tab, PO, l 1000 MG 12:09: Q8H, Take [place] nn Oral Tablet 00 with [Amicar] menstrual cycle, # 90 tab, 1 Refill(s) Medroxyprog No Notes: Rafi daniele esterone 3-16 (Same as: l 12:08: Depo-Prove [place] 00 ra) This is NOT Depo-SubQ Provera [...] PRN l Codeine 12:03: Pain Score Herm melissa Phosphate 00 6-10, # 50 30 MG Oral tab, 0 Tablet Refill(s) [Tylenol with Codeine #3] Acetaminoph No Notes: Do M emoria en 300 MG / 3-16 not exceed l Codeine 01:46: 4gm/day of Herm melissa Phosphate 00 acetaminop 30 MG Oral hen. [...] exceed l Codeine 19:07: 4gm/day of Herm melissa Phosphate 00 acetaminop 30 MG Oral hen. Tablet (Same as: [Tylenol Tylenol with with Codeine #3] Codeine # 3) Acetaminoph No Notes: Do M emoria en 300 MG / 3-15 not exceed l Codeine 19:06: 4gm/day of Herm melissa Phosphate 00 acetaminop 30 MG Oral hen. Tablet (Same as: [Tylenol Tylenol with with Codeine #3] Codeine # 3) Tramadol No Notes: Not Mem oria 3-15 to exceed l 19:05: 400mg/day. [place] 00 (Same As: Ultram) Acetaminoph No Notes: Rafi daniele en 325 MG / 3-15 (Same as: l Hydrocodone 18:32: [place] nn Bitartrate 00 325/5) Do 5 MG Oral not exceed Tablet 4gm/day of [[place] acetaminop 5/325] hen. Zofran No Notes: Memoria 3-15 (Same as: l 12:13: Zofran) MEDICATION WASTE Product Size: 4 mg Product Wasted: ___ mg Ofirmev No Notes: Memoria 3-15 Infuse l 04:14: over 15 minutes Do not exceed 4gm/day of acetaminop hen MEDICATION WASTE Product Size: 1000 mg Product Wasted: ___ mg Benadryl No Notes: Memoria 3-15 (Same as: l 03:55: Benadryl) Clonazepam No Notes: Memor ia 3-15 (Same As: l 03:01: KlonoPIN) Amicar No Notes: Memoria 3-15 (Same as: l 03:00: Amicar) Clonazepam No 4 mg, Memori a 3-15 Route: PO, l 02:58: TID, Dosing Weight 81.818, kg, Start date: 06/29/15 21:58:00, Duration: 30 day, Stop date: 07/29/15 17:00:00 Morphine No Notes: Memoria 3-14 (Same l 21:31: as:MORPhin [place] 00 e Sulfate) Dilaudid 2016-0 No Notes: Memoria 3-14 Same as: l 21:30: Dilaudid Gerardo 00 Sodium 2016-0 No 250 mL, Memoria Chloride 3-14 Rate: On l 0.9% 20:00: call for Gerardo (titrate) 00 use with 250 mL blood product administra tion, Dosing Weight 81.818, kg, Route: IV, Total Volume: 250, Start Date: 06/29/15 15:00:00, Duration: 1 doses or times, Stop date: 06/30/15 14:59:00, Replace Every: 24 hr Morphine 2015-0 No 6 mg, Memoria 3-14 Route: l 19:53: IVP, ONCE, Gerardo 00 Dosing Weight 81.818, kg, Start date: 06/29/15 14:53:00, Stop date: 06/29/15 14:53:00 Sodium 2015-0 No 1,000 mL, Memori a Chloride 3-14 1,000 l 0.154 17:42: ml/hr, [place] MEQ/ML 00 Infuse Injectable Over: 1 Solution hr, Route: IV, 1,000, Drug form: INJ, ONCE, Priority: STAT, Dosing Weight 81.818 kg, Start date: 06/29/15 12:42:00, Duration: 1 doses or times, Stop date: 06/29/15 12:42:00 Isolyte S 2015-0 No Notes: Memori a PH 7.4 3-14 (Same as: l 1,000 mL 17:24: Isolyte S Herm melissa PH 7.4) Morphine 2015-0 No 6 mg, Memoria 3-14 Route: l 16:17: IVP, Drug [place] form: INJ, ONCE, Dosing Weight 81.818, kg, Priority: STAT, Start date: 06/29/15 11:17:00, Stop date: 06/29/15 11:17:00 Zofran 2015-0 No Notes: Memoria 3-14 (Same as: l 13:21: Zofran) Gerardo MEDICATION WASTE Product Size: 4 mg Product Wasted: ___ mg Morphine 2015-0 No 6 mg, Memoria 3-14 Route: l 13:21: IVP, Drug Gerardo form: INJ, ONCE, Dosing Weight 81.818, kg, Priority: STAT, Start date: 06/29/15 8:21:00, Stop date: 06/29/15 8:21:00 Acetaminoph No 1 tab, Rafi daniele en 325 MG / 3-14 Route: PO, l Hydrocodone 13:19: Drug Form: [place] Bitartrate 00 TAB, 10 MG Oral Dosing Tablet Weight [[place] 81.818, 10/325] kg, ONCE, STAT, Start date: 06/29/15 8:19:00, Stop date: 06/29/15 8:19:00 Acetaminoph No Notes: Rafi daniele en 325 MG / 3-14 (Same as: l Hydrocodone 13:05: [place] Clover nn Bitartrate 00 325/5) Do 5 MG Oral not exceed Tablet 4gm/day of [[place] acetaminop 5/325] hen. Dilaudid No 1 mg, Memoria 3-14 Route: l 11:30: IVP, ONCE, Gerardo 00 Dosing Weight 81.818, kg, Priority: STAT, Start date: 06/29/15 6:30:00, Stop date: 06/29/15 6:30:00 Acetaminoph Yes 1 tab, PO, Memoria en 325 MG / 2-09 Q4H, PRN l Hydrocodone 16:38: Pain Score [place] Bitartrate 00 6-10, # 40 10 MG Oral tab, 0 Tablet Refill(s) [[place] 10/325] Acetaminoph No Notes: Do M emoria en 325 MG / 2-09 not exceed l Hydrocodone 05:37: 4gm/day of Gerardo Bitartrate 00 acetaminop 10 MG Oral hen. Tablet (Same as: [[place] 10/325] 325/10) Acetaminoph No Notes: Do M emoria en 325 MG / 2-08 not exceed l Hydrocodone 18:00: 4gm/day of [place] Bitartrate 00 acetaminop 10 MG Oral hen. Tablet (Same as: [[place] 10/325] 325/10) Acetaminoph No Notes: Do M emoria en 325 MG / 2-08 not exceed l Hydrocodone 16:43: 4gm/day of [place] Bitartrate 00 acetaminop 10 MG Oral hen. Tablet (Same as: [[place] 10/325] 325/10) Methadone No Notes: Memori a 2-08 (Same as: l 03:00: Dolophine) Amicar No Notes: Memoria 2-07 (Same as: l 22:00: Amicar) Acetaminoph No Notes: Rafi daniele en 325 MG / 05-24 (acetamino l butalbital 18:57: phen-butal H ermann [...] a 2-06 (Same as: l 22:00: Dolophine) ferric No Notes: Memoria oxide, 2-06 Each 5ml l saccharated 18:09: contains He rmann 00 100mg elemental iron. Mix with NS (Same as:Venofer ) Administer IV only. MEDICATION WASTE Product Size: 100 mg Product Wasted: ___ mg remove No Notes: Memoria patch 2-06 Remove l 12:00: patch 12 [place] 00 hours after applicatio n each day. Methadone No Notes: Memori a 2-06 (Same as: l 08:41: Dolophine) Methadone No Notes: Memori a 2-06 (Same as: l 04:00: Dolophine) [place] Lidocaine No Notes: Memori a Hydrochlori 2-06 Apply only l de 0.05 00:00: once for Jonel n MG/MG 00 up to 12 Transdermal hours in a Patch 24-hour period (12 hours on and 12 hours off). (Same as: Lidoderm) "Remove old patch before applicatio n of new patch" Methadone No Notes: Memori a 2-05 (Same as: l 23:08: Dolophine) [place] 00 Acetaminoph No Notes: Do M emoria en 325 MG / 2-05 not exceed l Hydrocodone 16:24: 4gm/day of [place] Bitartrate 00 acetaminop 10 MG Oral hen. Tablet (Same as: [[place] 10/325] 325/10) Tetrahydroc No 5 mg, Memor ia annabinol 2-05 Route: PO, l 16:22: Drug form: [place] CAP, Q12H, Dosing Weight 72.727, kg, Priority: NOW, Start date: 05/22/15 10:22:00, Duration: 30 day, Stop date: 06/21/15 9:00:00 sennosides, No Notes: Rafi daniele [facility] 2-05 (Same as: l 03:00: Senokot) [place] Docusate No Notes: Memoria 2-05 (Same as: l 03:00: Colace) [place] (Do Not Crush) Trazodone No Notes: Memori a 2-05 (Same As: l 03:00: Desyrel) [place] Tetrahydroc No Notes: Rafi daniele annabinol 2-05 (Same as: l 03:00: Marinol) [place] 00 Non-Formul rafael Drug. Dilaudid No Notes: Memoria 2-05 Same as: l 00:56: Dilaudid Ancef + No Notes: Memoria Sodium 2-05 (Same As: l Chloride 00:00: Ancef, Gerardo 0.9% IV 100 00 Kefzol) mL Cefazolin FOR IV SET ONLY MEDICATION WASTE Product Size: 1000 mg Product Wasted: ___ mg Fentanyl No 50 kg Memoria 2-04 l 23:51: [place] Oxycodone No Notes: Memori a Hydrochlori 2-04 (Same as: l de 1 MG/ML 23:43: 'Roxicodon H ermann Oral 00 e) Solution Acetaminoph No Notes: Max Memoria en 2-04 acetaminop l 23:26: hen 4000 [place] 00 mg/day (4 gm/day). (Same as: Tylenol Extra Strength) Hydromorpho No Notes: Rafi daniele ne 2-04 Same as: l 23:24: Dilaudid [place] 00 Methadone No Notes: Memori a 2-04 (Same as: l 23:23: Dolophine) [place] 00 Oxycodone No Notes: Memori a Hydrochlori 2-04 (Same as: l de 5 MG 23:23: Roxicodone Herm melissa Oral Tablet 00 ) Fentanyl No 72.727 Memoria 2-04 microgram, l 23:14: Route: IV, [place] 00 Drug form: INJ, ONCE, Dosing Weight 72.727, kg, PRN Pain Score 7-10, < 50 kg, Start date: 05/21/15 17:14:00, Pediatric Dosing; For procedure Ondansetron No Notes: Rafi daniele 2-04 (Same as: l 23:02: Zofran) [place] 00 MEDICATION WASTE Product Size: 4 mg Product Wasted: ___ mg Naloxone No Notes: Memoria 2-04 Same as l 23:02: Narcan [place] 00 Flumazenil No Notes: Memor ia 2-04 (Same as: l 23:02: Romazicon) [place] Hydromorpho No Notes: Rafi daniele ne 2-04 Same as: l 23:02: Dilaudid [place] 00 Miralax No Notes: Memoria 2-04 Dissolve l 15:00: in 8 oz of [place] 00 water or juice. (Same as: Miralax) Robaxin No Notes: Memoria 2-04 (Same l 14:00: as:Robaxin [place] 00 ) Tramadol No Notes: Not Mem oria 2-04 to exceed l 14:00: 400mg/day. [place] 00 (Same As: Ultram) Ondansetron No Notes: Rafi daniele 2-04 (Same as: l 13:55: Zofran) MEDICATION WASTE Product Size: 4 mg Product Wasted: ___ mg Clonazepam No Notes: Memor ia 2-04 (Same As: l 12:00: KlonoPIN) gabapentin No Notes: Memor ia 600 MG Oral 2-04 (Same as: l Tablet 06:00: Neurontin) [place] Amicar No Notes: Memoria 2-04 (Same as: l 06:00: Amicar) Clonazepam No Notes: Memor ia 2-04 (Same As: l 03:00: KlonoPIN) Acetaminoph No Notes: Rafi daniele en 325 MG / 2-04 (acetamino l butalbital 02:55: phen-butal H ermann 50 MG / 00 bital-caff Caffeine 40 eine MG Oral 325-50-40m Capsule g) Do not exceed 4 gm/day of acetaminop hen. (Same as: Esgic, Fioricet) acetaminoph No Notes: Do M emoria en-hydrocod 2-04 not exceed l one 325 02:16: 4gm/day of Herm melissa mg-10 mg 00 acetaminop oral tablet hen. (Same as: [place] 325/10) acetaminoph No Notes: Do M emoria en-hydrocod 2-04 not exceed l one 325 02:15: 4gm/day of Herm melissa mg-10 mg 00 acetaminop oral tablet hen. (Same as: [place] 325/10) acetaminoph No Notes: Do M emoria en-hydrocod 2-04 not exceed l one 325 02:11: 4gm/day of Herm melissa mg-10 mg 00 acetaminop oral tablet hen. (Same as: [place] 325/10) Acetaminoph No Notes: Do M emoria en 325 MG / 2-04 not exceed l Hydrocodone 02:00: 4gm/day of [place] Bitartrate 00 acetaminop 10 MG Oral hen. Tablet (Same as: [[place] 10/325] 325/10) Enoxaparin No Notes: Memor ia 2-04 (Same as: l 00:00: Lovenox) [place] LR IV 1,000 No 1,000 mL, Mabel bundy mL 05-20 Rate: 75 l 20:09: ml/hr, Gerardo 00 Infuse over: 13.3 hr, Route: IV, Dosing Weight 77.273 kg, Total Volume: 1,000, Start date: 05/20/15 14:09:00, Duration: 30 day, Stop date: 06/19/15 14:08:00 Acetaminoph No Notes: Rafi daniele en 2-03 Infuse l 20:07: over 15 [place] 00 minutes Do not exceed 4gm/day of acetaminop hen MEDICATION WASTE Product Size: 1000 mg Product Wasted: ___ mg Oxycodone No Notes: Memori a Hydrochlori 05-20 (Same as: l de 5 MG 20:07: Roxicodone Herm melissa Oral Tablet ) gabapentin No Notes: Memor ia 2-03 (Same as: l 20:07: Neurontin) [place] Docusate No Notes: Memoria 2-03 (Same as: l 20:03: Colace) [place] (Do Not Crush) Diphenhydra No Notes: Rafi daniele mine -03 (Same as: l 20:03: Benadryl) [place] 00 Ondansetron No Notes: Rafi daniele 2-03 (Same as: l 20:03: Zofran) [place] 00 MEDICATION WASTE Product Size: 4 mg [...] 100 mg = 1 Memori a tramadol -24 tab, PO, l hydrochlori 15:48: Daily, PRN Gerardo de 100 MG 00 pain, # 60 Extended tab, 0 Release Refill(s) Tablet Amicar No Notes: Memoria 24 (Same as: l 14:00: Amicar) Melatonin No Notes: Memori a 24 (Same as: l 02:38: Melatonin) Acetaminoph No Notes: Do M emoria en [...] tab, 10 MG Oral 0 Tablet Refill(s) [[place] 10/325] Dilaudid No Notes: Memoria 05-09 Same as: l 14:37: Dilaudid D5LR 1,000 No 1,000 mL, Me moria mL 05-09 Rate: 125 l 14:36: ml/hr, [place] 00 Infuse over: 8 hr, Route: IV, Dosing [...] 100 mg = 2 Mem oria hydrochlori 02 tab, PO, l de 50 MG 22:09: Q6H, X 7 [place] nn Oral Tablet 00 day, # 50 tab, 0 Refill(s) methocarbam Yes 1,000 mg = Memoria ol 500 mg 02 2 tab, PO, l oral tablet 22:09: Q8H, X 14 H ermann day, # 80 tab, 0 Refill(s) gabapentin Yes 600 mg = 1 M emoria 600 MG Oral 02 tab, PO, l Tablet 22:09: Q8H, # 90 Jonel n 00 tab, 0 Refill(s) Acetaminoph Yes 1-2 tab, Me moria en 325 MG / -02 PO, Q4H, l Hydrocodone 22:09: PRN for Her wilkes Bitartrate 00 pain, X 5 10 MG Oral day, # 30 Tablet tab, 0 [[place] Refill(s) 10/325] 6-Aminocapr Yes See Memori a oic Acid 04-18 Instructio l 1000 MG 22:09: ns, 3 tab Clover nn Oral Tablet 00 PO q6-8h [Amicar] PRN for bleeding., # 60 tab, 0 Refill(s) Acetaminoph No Notes: Do M emoria en 325 MG / 04-18 not exceed l Hydrocodone 17:44: 4gm/day of [place] Bitartrate 00 acetaminop 10 MG Oral hen. Tablet (Same as: [[place] 10/325] 325/10) Methadone No Notes: Memori a - (Same as: l 02:00: Dolophine) Gerardo Miralax No Notes: Memoria 04-17 Dissolve l 23:00: in 8 oz of water or juice. (Same as: Miralax) Trazodone No Notes: Memori a Hydrochlori 04-17 (Same As: l de 50 MG 03:00: Desyrel) Clover nn Oral Tablet 00 gabapentin 2014-04 No Notes: Memor ia 2-31 (Same as: l 22:00: Neurontin) Methadone 2014-04 No Notes: Memori a 2-31 (Same as: l 22:00: Dolophine) Robaxin 2014-04 No Notes: Memoria 2-31 (Same l 19:04: as:Robaxin ) Tetrahydroc 2014-04 No Notes: Rafi daniele annabinol 2-31 (Same as: l 19:00: Marinol) Non-Formul rafael Drug. Acetaminoph 2014-04 No Notes: Max Memoria en 2-31 acetaminop l 18:00: hen 4000 [place] 00 mg/day (4 gm/day). (Same as: Tylenol Extra Strength) Methadone 2014-04 No Notes: Memori a 2-31 (Same as: l 17:30: Dolophine) Dilaudid 2014-04 No 1 mg, Memoria 2-31 Route: l 11:06: IVP, ONCE, Dosing Weight 81.818, kg, Priority: STAT, Start date: 04/16/15 5:06:00, Stop date: 04/16/15 5:06:00 Restoril 2014-04 No Notes: Memoria 2-31 (Same As: l 03:16: Restoril) sennosides, 2014-04 No Notes: Rafi daniele [facility] 2-31 (Same as: l 03:00: Senokot) [place] 00 Ancef + 2014-04 No Notes: Memoria Sodium 2-30 (Same As: l Chloride 22:00: AncefGabriel[place]ville 0.9% IV 100 00 Kefzol) mL Cefazolin FOR IV SET ONLY MEDICATION WASTE Product Size: 1000 mg Product Wasted: ___ mg Acetaminoph 2014-04 No 1 tab, PO, Memoria en 325 MG / 2-30 Q4H, PRN l Hydrocodone 20:03: for pain He rm Bitartrate 00 10 MG Oral Tablet [[place] 10/325] Tramadol 2014-04 No 100 mg, Memori a 2-30 Route: PO, l 15:05: Drug form: [place] TAB, ONCE, Dosing Weight 81.818, kg, PRN [...] Memoria 2-30 (Same as: l 15:00: Colace) [place] 00 (Do Not Crush) Ancef 2014-04 No 2 gm, Memoria 2-30 Route: IV, l 13:49: ONCE, Dosing Weight 81.818, kg, Start date: 04/15/15 7:49:00, Duration: 1 doses or times, Stop date: 04/15/15 7:49:00 Amicar 2014-04 No 1 gm, PO, Memori a 2-30 Q6H, 0 l 06:36: Refill(s) Dilaudid 2014-04 No Notes: Memoria 2-30 Same as: l 06:14: Dilaudid Tramadol 2014-04 No Notes: Not Mem oria 2-30 to exceed l 06:00: 400mg/day. Gerardo 00 (Same As: Ultram) Acetaminoph 2014-04 No Notes: Rafi daniele en 2-30 Infuse l 06:00: over 15 Gerardo 00 minutes Do not exceed 4gm/day of acetaminop hen MEDICATION WASTE Product Size: 1000 mg Product Wasted: ___ mg gabapentin 2014-04 No Notes: Memor ia 2-30 (Same as: l 06:00: Neurontin) Diphenhydra 2014-04 No Notes: Rafi daniele mine 2-30 (Same as: l 05:45: Benadryl) Oxycodone 2014-04 No Notes: Memori a Hydrochlori 2-30 (Same as: l de 5 MG 05:45: Roxicodone Herm melissa Oral Tablet ) Morphine 2014-04 No Notes: Memoria 2-30 (Same l 05:45: as:MORPhin [place] e Sulfate) Ondansetron 2014-04 No Notes: Rafi daniele 2-30 (Same as: l 05:45: Zofran) MEDICATION WASTE Product Size: 4 mg [...] Memoria 2-30 Route: IV, l 03:05: ONCE, Gerardo 00 Dosing Weight 81.818, kg, Start date: 04/14/15 21:05:00, Stop date: 04/14/15 21:05:00 Propofol 2014-04 No 20 mg, Memoria 2-30 Route: IV, l 03:05: ONCE, Dosing Weight 81.818, kg, Start date: 04/14/15 21:05:00, Stop date: 04/14/15 21:05:00 Tylenol 2014-04 No Notes: Memoria 2-30 Infuse l 02:34: over 15 minutes Do not exceed 4gm/day [...] Memoria 2-30 microgram, l 02:32: Route: IV, 00 ONCE, Dosing Weight 81.818, kg, Start date: 04/14/15 20:32:00, Stop date: 04/14/15 20:32:00 Amicar 2014-04 No Notes: Memoria 2-30 (Same as: l 02:30: Amicar) Dilaudid 2014-04 No 1 mg, Memoria 2-30 Route: l 01:41: IVP, ONCE, Dosing Weight 81.818, kg, Priority: STAT, Start date: 04/14/15 19:41:00, Stop date: 04/14/15 19:41:00 Acetaminoph 2015-1 No 1 tab, Rafi daniele en 325 MG / Route: PO, l Hydrocodone 23:28: Drug Form: [place] Bitartrate 00 TAB, 10 MG Oral Dosing Tablet Weight [[place] 81.818, 10/325] kg, ONCE, STAT, Start date: 04/14/15 17:28:00, Stop date: 04/14/15 17:28:00 normal 2014-04 No 1,000 mL, Memori a saline 0.9% Rate: 100 l IV 1,000 mL 23:28: ml/hr, Herm melissa Infuse over: 10 hr, Route: IV, Dosing Weight 81.818 kg, Total Volume: 1,000, Start date: 04/14/15 17:28:00, Duration: 30 day, Stop date: 05/14/15 17:27:00 Saline 2014-04 No Notes: Memoria Flush 0.9% 29 (Same as: l 22:59: BD Gerardo 00 Posiflush) Fentanyl 2014-04 No 100 Memoria 2-29 microgram, l 22:54: Route: [place] 00 IVP, ONCE, Dosing Weight 81.818, kg, Priority: STAT, Start date: 04/14/15 16:54:00, Stop date: 04/14/15 16:54:00 aminocaproi Yes Steff Sanchez 3 gm, 12 Memoria c acid 1.25 5-17 Holihan mL, PO, l g/5 mL oral 21:53: Q6H, 1 mL, [place] syrup 06 Substituti on Allowed, SYRP Colace 100 Yes Steff Sanchez 100 mg, 1 Memoria mg oral 5-17 [place] cap, PO, l capsule 21:53: BID, 30 [place] 00 cap, Substituti on Allowed, CAP [place] Yes Steff Sanchez 1 tab, PO, Memoria 10/325 oral 5-17 [place] Q4H, PRN, l tablet 21:52: 30 tab, Gerardo 55 Pain, Substituti on Allowed, Maintenanc e, TAB Sodium No Steff Sanchez 250 mL, Me moria Chloride 5-17 Holihan Rate: On l 0.9% 14:31: call for [place] (titrate) 00 use with 250 mL blood product administra tion, Dosing Weight 81.818, kg, Route: IV, Total Volume: 250, Duration: 1 day, Stop date: 09/01/12 9:30:00, Replace Every: 24 hr [place] 2012- No Steff Kumarn 2 tab, Rafi daniele 10/325 oral 5-16 [...] mL, Route: l 18:22: Holliday IVP, Drug Gerardo 00 form: INJ, PRN, Dosing Weight 81.818, kg, PRN Benzodiaze pine Reversal, Initial dose, Start date: 08/30/12 13:22:00, Stop date: 08/31/12 0:00:00 naloxone No Lexus 0.04 mg, Mem oria 5-16 Miguel 0.1 mL, l 18:22: Holliday Route: Gerardo 00 IVP, Drug form: INJ, Q2MIN, Dosing Weight 81.818, kg, PRN Narcotic Reversal, Start date: 08/30/12 13:22:00, Duration: 8 doses or times, Stop date: 08/31/12 0:00:00 ondansetron No Lexus 4 mg, 2 M emoria 5-16 Miguel mL, Route: l 18:22: Holliday IVP, Drug [place] 00 form: INJ, ONCE, Dosing Weight 81.818, kg, PRN Nausea & Vomiting, Start date: 08/30/12 13:22:00 cefoxitin 2012- No Robb 1 gm, Memor ia (SCIP) -16 Ahmed Ramírez Route: l 16:21: IVPB, Drug form: INJ, ONCE, Dosing Weight 81.818, kg, Start date: 08/30/12 11:21:00, Stop date: 08/30/12 11:21:00 Amicar 2012-0 No Pérez 3 gm, 12 Rafi daniele 5-16 Sangmin mL, Route: l 01:44: Haroldo PO, Drug form: SOLN, Q6H, Dosing Weight 81.818, kg, Start date: 08/29/12 20:44:00, Duration: 30 day, Stop date: 09/28/12 18:00:00 Amicar 2012-0 No Pérez 3 gm, 12 Rafi daniele 5-15 Sangmin mL, Route: l 23:00: Haroldo PO, Drug form: SOLN, Q6H, Dosing Weight 81.818, kg, Start date: 08/29/12 18:00:00, Stop date: 09/28/12 12:00:00 Colace 100 No Mansoor 100 mg, 1 Memoria mg oral 5-15 [place] cap, l capsule 22:00: Route: PO, Herm Drug form: CAP, BID, Dosing Weight 84.091, kg, Start date: 08/29/12 17:00:00, Duration: 30 day, Stop date: 09/28/12 9:00:00 diphenhydrA No Pérez 25 mg, 1 Memoria MINE 5-15 Sangmin cap, l 21:00: Haroldo Route: PO, Gerardo 00 Drug form: CAP, ONCALL, Dosing Weight 81.818, kg, Priority: Routine, Start date: 08/29/12 16:00:00, Duration: 30 day, Stop date: 09/28/12 15:59:00, Premed Blood ProductsPr emed Blood Products acetaminoph No Pérez 650 mg, 2 Memoria en 5-15 Sangmin tab, l 21:00: Haroldo Route: PO, [place] 00 Drug form: TAB, ONCALL, Dosing Weight 81.818, kg, Priority: Routine, Start date: 08/29/12 16:00:00, Duration: 30 day, Stop date: 09/28/12 15:59:00, Premed Blood Products. Not to exceed 4grams/24h rs.Premed Blood Products. Not to exceed 4grams/24h rs. Dilaudid 2012- No Steff Laura 0.2 mg, Memoria 5-15 Holihan 0.1 mL, l 20:37: Route: IV, Gerardo 00 Drug form: INJ, Q4H, Dosing Weight 81.818, kg, PRN Pain, Start date: 08/29/12 15:37:00, Duration: 30 day, Stop date: 09/28/12 15:36:00 D5W 1/2NS + 2012-0 No Mansoor 1,000 mL, Memoria KCL 20mEq/L 5-15 Knox Rate: 100 l 1000ml 17:51: ml/hr, [place] (Premix) 00 Infuse 1,000 mL over: 10 hr, Route: IV, Dosing Weight 84.091 kg, Total Volume: 1,000, Start date: 08/29/12 12:51:00, Duration: 30 day, Stop date: 09/28/12 12:50:00 Zofran 2012-0 No Mansoor 4 mg, 2 Memori a 5-15 Knox mL, Route: l 16:20: IV, Drug form: INJ, Q8H, Dosing Weight 84.091, kg, PRN Nausea, Start date: 08/29/12 11:20:00, Duration: 30 day, Stop date: 09/28/12 11:19:00 morphine 2012-0 No Steff Laura 2 mg, 1 Memoria Sulfate 5-15 Holihan mL, Route: l 16:20: IVP, Drug form: INJ, Q2H, Dosing Weight 84.091, kg, PRN Pain, Start date: 08/29/12 11:20:00, Duration: 30 day, Stop date: 09/28/12 11:19:00 [place] 5/325 2012-0 No Steff Laura 2 tab, Memoria oral tablet 5-15 Holihan Route: PO, l 16:18: Drug Form: [place] 00 TAB, Dosing Weight 84.091, kg, Q4H, [...] 30 day, Stop date: 09/28/12 11:17:00 morphine 2012-0 No Olga Melissa 4 mg, 1 M emoria Sulfate 5-15 Kreiner mL, Route: l 15:31: IVP, Drug [place] 00 form: INJ, ONCE, Dosing Weight 84.091, kg, Start date: 08/29/12 10:31:00, Stop date: 08/29/12 10:31:00 Vital Signs Vital Name Observation Time Observation Value Comments Source Heart Rate 2015-12-20 16:33:00 [facility] Gerardo Temperature Oral (F) 2015-12-20 16:33:00 98.7 F [facility] Gerardo Systolic (mm Hg) 2015-12-20 16:33:00 Rafi rial [place] Diastolic (mm Hg) 2015-12-20 16:33:00 Mem orial [place] Respitory Rate 2015-12-20 16:33:00 Memori al [place] Temperature Oral (F) 2015-12-20 13:24:00 98.2 F [facility] [place] Systolic (mm Hg) 2015-12-20 13:24:00 Rafi rial [place] Diastolic (mm Hg) 2015-12-20 13:24:00 Mem orial [place] Respitory Rate 2015-12-20 13:24:00 Memori al [place] Heart Rate 2015-12-20 13:24:00 [facility] [place] Systolic (mm Hg) 2015-12-20 09:15:00 Rafi rial Gerardo Diastolic (mm Hg) 2015-12-20 09:15:00 Mem orial [place] Respitory Rate 2015-12-20 09:15:00 Memori al [place] Heart Rate 2015-12-20 09:15:00 [facility] [place] Temperature Oral (F) 2015-12-20 09:15:00 97.8 F [facility] [place] Height 2015-12-18 06:07:00 167.64 cm [facility] Gerardo BMI Calculated 2015-12-18 06:07:00 Memori al [place] Weight 2015-12-18 06:07:00 [facility] [place] Weight 2015-12-18 00:14:00 [facility] [place] BMI Calculated 2015-12-18 00:14:00 Memori al [place] Height 2015-12-18 00:14:00 167.64 cm [facility] [place] Systolic (mm Hg) 2015-07-01 12:41:00 Rafi rial [place] Diastolic (mm Hg) 2015-07-01 12:41:00 Mem orial [place] Temperature Oral (F) 2015-07-01 12:41:00 98 F [facility]ardo Respitory Rate 2015-07-01 12:41:00 Memori al [place] Systolic (mm Hg) 2015-07-01 09:00:00 Rafi rial [place] Diastolic (mm Hg) 2015-07-01 09:00:00 Mem orial [place] Heart Rate 2015-07-01 09:00:00 [facility] [place] Respitory Rate 2015-07-01 09:00:00 Memori al [place] Temperature Oral (F) 2015-07-01 09:00:00 98 F [facility] [place] Respitory Rate 2015-07-01 00:45:00 Memori al [place] Heart Rate 2015-07-01 00:45:00 [facility] [place] Temperature Oral (F) 2015-07-01 00:45:00 98.8 F [facility] [place] Systolic (mm Hg) 2015-07-01 00:45:00 Rafi rial [place] Diastolic (mm Hg) 2015-07-01 00:45:00 Mem orial [place] Heart Rate 2015-06-30 17:45:00 [facility] [place] Weight 2015-06-29 11:02:00 [facility] [place] Height 2015-06-29 11:02:00 167.64 cm [facility] BMI Calculated 2015-06-29 11:02:00 Memori al [place] Heart Rate 2015-05-26 13:21:00 [facility] [place] Temperature Oral (F) 2015-05-26 13:21:00 97.9 F [facility] [place] Respitory Rate 2015-05-26 13:21:00 Memori al [place] Systolic (mm Hg) 2015-05-26 13:21:00 Rafi rial [place] Diastolic (mm Hg) 2015-05-26 13:21:00 Mem orial [place] Respitory Rate 2015-05-26 11:24:00 Memori al [place] Heart Rate 2015-05-26 11:24:00 [facility] [place] Systolic (mm Hg) 2015-05-26 11:24:00 Rafi rial [place] Diastolic (mm Hg) 2015-05-26 11:24:00 Mem orial [place] Temperature Oral (F) 2015-05-26 11:24:00 98.2 F [facility] [place] Temperature Oral (F) 2015-05-26 05:41:00 98.7 F [facility] [place] Heart Rate 2015-05-26 05:41:00 [facility] [place] Systolic (mm Hg) 2015-05-26 05:41:00 Rafi rial [place] Diastolic (mm Hg) 2015-05-26 05:41:00 Mem orial [place] Respitory Rate 2015-05-26 05:41:00 Memori al [place] Weight 2015-05-23 15:25:00 [facility] [place] Height 2015-05-23 15:25:00 167.64 cm [facility] BMI Calculated 2015-05-23 15:25:00 Memori al [place] Weight 2015-05-20 23:17:00 [facility] [place] BMI Calculated 2015-05-20 23:17:00 Memori al [place] Height 2015-05-20 23:17:00 167.64 cm [facility] [place] Temperature Oral (F) 2015-05-10 22:30:00 97.9 F [facility] Heart Rate 2015-05-10 22:30:00 [facility] [place] Respitory Rate 2015-05-10 22:30:00 Memori al [place] Systolic (mm Hg) 2015-05-10 22:30:00 Rafi rial [place] Diastolic (mm Hg) 2015-05-10 22:30:00 Mem orial [place] Temperature Oral (F) 2015-05-10 18:05:00 98 F [facility] [place] Respitory Rate 2015-05-10 18:05:00 Memori al [place] Heart Rate 2015-05-10 18:05:00 [facility] [place] Systolic (mm Hg) 2015-05-10 18:05:00 Rafi rial [place] Diastolic (mm Hg) 2015-05-10 18:05:00 Mem orial [place] Respitory Rate 2015-05-10 14:50:00 Memori al [place] Systolic (mm Hg) 2015-05-10 14:50:00 Rafi rial [place] Diastolic (mm Hg) 2015-05-10 14:50:00 Mem orial [place] Heart Rate 2015-05-10 14:50:00 [facility] [place] Temperature Oral (F) 2015-05-10 14:50:00 98.2 F [facility] [place] Weight 2015-05-09 12:04:00 [facility] [place] Height 2015-05-09 12:04:00 167.64 cm [facility] BMI Calculated 2015-05-09 12:04:00 Memori al [place] Heart Rate 2015-04-19 02:58:00 [facility] [place] Temperature Oral (F) 2015-04-19 02:58:00 98.7 F [facility] [place] Respitory Rate 2015-04-19 02:58:00 Memori al [place] Systolic (mm Hg) 2015-04-19 02:58:00 Rafi rial [place] Diastolic (mm Hg) 2015-04-19 02:58:00 Mem orial [place] Heart Rate 2015-04-18 22:24:00 [facility] [place] Temperature Oral (F) 2015-04-18 22:24:00 98.6 F [facility] [place] Systolic (mm Hg) 2015-04-18 22:24:00 Rafi rial [place] Diastolic (mm Hg) 2015-04-18 22:24:00 Mem orial [place] Respitory Rate 2015-04-18 22:24:00 Memori al [place] Temperature Oral (F) 2015-04-18 17:35:00 98.8 F [facility] [place] Systolic (mm Hg) 2015-04-18 17:35:00 Rafi rial [place] Diastolic (mm Hg) 2015-04-18 17:35:00 Mem orial [place] Heart Rate 2015-04-18 17:35:00 [facility] [place] Respitory Rate 2015-04-18 17:35:00 Memori al [place] Weight 2015-04-15 07:18:00 [facility] [place] Height 2015-04-15 07:18:00 167.7 cm [facility] [place] BMI Calculated 2015-04-15 07:18:00 Memori al [place] BMI Calculated 2015-04-14 22:36:00 Memori al [place] Weight 2015-04-14 22:36:00 [facility] [place] Height 2015-04-14 22:36:00 167.64 cm [facility] Heart Rate 2012-09-01 12:56:00 [facility] [place] Respitory Rate 2012-09-01 12:56:00 Memori al [place] Temperature Oral (F) 2012-09-01 12:56:00 98.1 F [facility] [place] Systolic (mm Hg) 2012-09-01 12:56:00 Rafi rial [place] Diastolic (mm Hg) 2012-09-01 12:56:00 Mem orial [place] Diastolic (mm Hg) 2012-09-01 08:53:00 Mem orial [place] Temperature Oral (F) 2012-09-01 08:53:00 98.0 F [facility] [place] Heart Rate 2012-09-01 08:53:00 [facility] [place] Respitory Rate 2012-09-01 08:53:00 Memori al [place] Systolic (mm Hg) 2012-09-01 08:53:00 Rafi rial [place] Systolic (mm Hg) 2012-09-01 05:28:00 Rafi rial [place] Diastolic (mm Hg) 2012-09-01 05:28:00 Mem orial [place] Respitory Rate 2012-09-01 05:28:00 Memori al [place] Heart Rate 2012-09-01 05:28:00 [facility] [place] Temperature Oral (F) 2012-09-01 05:28:00 98.1 F [facility] [place] Height 2012-08-29 19:03:00 167.64 cm [facility] [place] Weight 2012-08-29 19:03:00 [facility] [place] Weight 2012-08-29 15:02:00 [facility] [place] Height 2012-08-29 15:02:00 167.64 cm [facility] Gerardo Procedures Procedure Date / Time Performed Performing Clinician Sourc e External fixation 2015-04-17 00:00:00 [facility] ermann Cholecystectomy 2014-04-17 00:00:00 [facility] wilkes Hernia repair 1994-04-17 00:00:00 [facility] section Catrina somers section Catrina somers Encounters Start End Encounter Admission Attending Care Care Encounter Source Date/Time Date/Time Type Type Clinicians Facility Department ID 2019-07-13 2019-07-13 Nurse JARAD Douglas [id number] [id number] 00:00:00 00:00:00 Triage Aracelis [place] [id number] [id number] [id number] 2019-07-13 2019-07-13 Nurse JARAD Baker [id number] 00:00:00 00:00:00 Triage Melinda Gillette [place] [id number] [place] [id number] 2018-12-31 2019-01-01 [facility] JARAD Woods [id number] 21:55:55 14:19:00 Encounter Jesse WOOD [id number] [place] [id number] [id number] 2018-12-31 2018-12-31 Nurse Visit, [facility] [id number] 15:10:27 15:53:28 Visit [facility] PILE DRIVING SUPERVISOR [id number] [facility] [id number] MATERNAL [id number] & CHILD 107 [facility] 2018-12-31 2018-12-31 [facility] 1.2.840.114 [id number] 00:00:00 00:00:00 Rimma Somers PILE DRIVING SUPERVISOR [id number] [facility] [id number] MATERNAL [id number] & CHILD 107 [facility] 2018-12-31 2018-12-31 Telephone JARAD Upton [id number] 00:00:00 00:00:00 Gilson WOOD [id number] [place] [id number] 2018-12-28 2018-12-29 Emergency [facility] [id number] 19:29:15 00:59:00 Alla [place] 350.1.13.10 [place] 4.2.7.2.686 [place] [id number] 2018-12-28 2018-12-28 Nurse Visit, [facility] 1.2.840.114 [id number] 12:55:55 13:47:08 Visit Ang-Rmchp PILE DRIVING SUPERVISOR [id number] Nurse REGIONAL [id number] MATERNAL [id number] & CHILD 107 [facility] 2018-12-20 2018-12-24 [facility] JARAD Lizama 1.2.840.114 [id number] 18:42:00 13:40:00 Encounter Reecolleen WOOD [id number] [place] 4.2.7.2.686 [id number] 2018-12-20 2018-12-20 Assistant Spa Director Ultrasound, [facility] [id number] 11:12:37 11:42:37 Visit Ang-Mfm PILE DRIVING SUPERVISOR [id number] REGIONAL 4.2.7.2.686 MATERNAL [id number] & CHILD 369 [facility] 2018-12-20 2018-12-20 Routine Risk, [facility] 1.2.840.114 [id number] 10:20:16 11:05:03 Ang-Rmchp-N PILE DRIVING SUPERVISOR [id number] Visit p/High REGIONAL 4.2.7.2.686 MATERNAL [id number] & CHILD 107 [facility] 2018-12-18 2018-12-18 Routine Velarde, [facility] 1.2.840.114 [id number] 12:50:29 14:00:55 Roshunda R PILE DRIVING SUPERVISOR 350.1.13.10 Visit REGIONAL [id number] MATERNAL [id number] & CHILD 107 [facility] 2018-12-13 2018-12-13 Routine Pool, [facility] UNIVERS 1.2.840.114 [id number] 13:28:19 14:24:11 [facility] 350.1.13.10 Visit CLINICS 4.2.7.2.686 [id number] 2018-12-13 2018-12-13 Assistant Spa Director 2, [facility] UNIVERS 1.2.840.11 [id number] 12:48:28 13:23:20 [facility] 350.1.13.10 [facility] 4.2.7.2.686 [id number] 2018-12-13 2018-12-13 Orders Doctor JARAD 1.2.840.114 [id number] 00:00:00 00:00:00 Only Unassigned, [place] 350.1.13.10 [place] [facility] 4.2.7.2.686 [id number] 2018-12-11 2018-12-11 Case Aries JARAD 1.2.840.114 [id number] 00:00:00 00:00:00 Management Ruba [place] 350.1.13.10 [place] [id number] [id number] 2018-12-10 2018-12-10 Routine Faculty, [facility] 1.2.840.114 [id number] 10:35:35 11:46:44 Ang Rmchp PILE DRIVING SUPERVISOR 350.1.13.10 Visit [facility] 4.2.7.2.686 MATERNAL [id number] & CHILD 107 [facility] 2018-12-06 2018-12-06 Assistant Spa Director Ultrasound, [facility] 1.2.840.114 [id number] 11:40:06 12:10:06 Visit Ang-m PILE DRIVING SUPERVISOR 350.1.13.10 REGIONAL 4.2.7.2.686 MATERNAL [id number] & CHILD 369 [facility] 2018-12-06 2018-12-06 Routine Risk, [facility] 1.2.840.114 [id number] 10:02:15 11:39:46 Ang-Rmchp-N PILE DRIVING SUPERVISOR 350.1.13.10 Visit p/High [facility] 4.2.7.2.686 MATERNAL [id number] & CHILD 107 [facility] 2018-12-03 2018-12-03 Hospital Lorrie Olmos [facility] 1.2.840.114 [id number] 13:57:00 16:45:00 Encounter Damien Lopez 350.1.13.10 [place] 4.2.7.2.686 [place] [id number] 2018-12-03 2018-12-03 Routine Faculty, [facility] 1.2.840.114 [id number] 09:27:42 10:36:46 Ang Rmchp PILE DRIVING SUPERVISOR [id number] Visit [facility] REGIONAL [id number] MATERNAL [id number] & CHILD 107 [facility] 2018-11-29 2018-11-29 Routine Risk, [facility] [id number] 12:45:37 13:38:16 Ang-Rmchp-N PILE DRIVING SUPERVISOR 350.1.13.10 Visit p/High REGIONAL 4.2.7.2.686 MATERNAL [id number] & CHILD 107 [facility] 2015-12-17 2015-12-20 Outpatient Guille [facility] [id number] 19:14:00 17:30:00 , Olivier 45 2015-06-29 2015-07-01 Outpatient Katie, [facility] [id number] 06:02:00 08:51:00 Oksana Covington 74 2015-05-20 2015-05-26 Outpatient Gurpreet, [facility] [id number] 16:24:00 15:50:00 Alma 33 Sharon 2015-05-09 2015-05-10 Outpatient Gonzalo, [facility] [id number] 06:02:00 17:45:00 Pérez Zapata 2015-04-14 2015-04-18 Outpatient Lyric, [facility] [id number] 16:34:00 21:15:00 Arturo Murillo Results Test Description Test Time Test Comments Results Result [facility] e Comments - DUP VEIN SAMANTHA 2020-05-04 08:04:00 [facility] : 1985 Sex: F Patient Name: SEKOU CAMPBELL Unit No: [id number] EXAMS: CPT CODE: [id number] DUP VEIN SAMANTHA 90622 BILATERAL LOWER EXTREMITY DUPLEX VENOUS DOPPLER ULTRASOUND, 05/04/2020 COMPARISON: None CLINICAL HISTORY: LEG PAIN FINDINGS: Examination is limited due to patient's restlessness leg syndrome and back pain. Insofar as visualized, there is normal deep venous compressibility and Doppler flow in the veins to the level of the knees. Assessment of the deep veins below the level of the knees was very limited. IMPRESSION: No sonographic evaluation of deep venous thrombosis is seen in the thighs. Please see above comments. at 0804 Reported and signed by: Ramiro Lizama MD CC: Magdalena Ferro Technologist: LILLI MCGOWAN RDMS, RVT Probe: Trnscrbd D/ (0804) [email or web address] Orig Print D/T: S: 05/04/2020 (0807) [facility] NAME: SEKOU CAMPBELL Radiology Department PHYS: Magdalena Borrego MD [address] : 1985 AGE: 34 SEX: F [place] [address] LOC: TANGELA4 A PHONE #: [phone] EXAM DATE: 05/04/2020 STATUS: ADM IN FAX #: [phone] RAD NO: Page 1 Signed Report Patient Name: SEKOU CAMPBELL Unit No: [id number] EXAMS: CPT CODE: [id number] DUP VEIN SAMANTHA 86467 <Continued> [facility] NAME: SEKOU CAMPBELL Radiology Department PHYS: Magdalena Borrego MD [address] : 1985 AGE: 34 SEX: F [place] [address] LOC: ROMAIN Saunders PHONE #: [phone] EXAM DATE: 05/04/2020 STATUS: ADM IN FAX #: [phone] RAD NO: Page 2 Signed Report CBC W/AUTO DIFF 2020-05-04 04:57:00 Test Item Value Reference Range Interpretation Comme nts WHITE BLOOD CELL (test code = 11.2 K/mm3 6.6-12.1 WBC) RED BLOOD CELL (test code = RBC) 3.09 M/mm3 3.45-5.01 L HEMOGLOBIN (test code = HGB) 8.3 g/dL 10.7-13.9 L HEMATOCRIT (test code = HCT) 26.8 % 32.1-42.1 L MEAN CELL VOLUME (test code = 87 fL 84.1-94.8 N MCV) MEAN CELL HGB (test code = MCH) 26.9 pg 27-35 L MEAN CELL HGB CONCETRATION (test 31.0 gm/dL 32.2-34.1 L code = MCHC) RED CELL DISTRIBUTION WIDTH (test 17.4 % 12.4-16.5 H code = RDW) PLATELET COUNT (test code = PLT) 77 K/mm3 133-385 LL RESULTS CALLED TO LOVE.READ JED K & CONFIRMED? Y.BY CYNDYTM 05/04/20 0456Re sults verified by rep eat analysis IMMATURE PLATELET FRACTION (test 8.4 % 0.0-10.8 N code = IPF) MEAN PLATELET VOLUME (test code = 12.9 fl 9.1-12.7 H MPV) MANUAL DIFF REQUIRED (test code = YES MDIFF) RBC MORPHOLOGY REQUIRED (test NORMAL NORMAL code = RBCM) PLATELET MORPHOLOGY REQUIRED ABNORMAL NORMAL (test code = PLTMR) WBC [id number] 04:57:00 Test Item Value Reference Range Interpretation Comments TOTAL CELLS COUNTED (test 100 #CELLS code = TCC) SEGMENTED NEUTROPHILS (test 95 % 56.5-79.4 H code = SEG) LYMPHOCYTE (test code = 1 % 20-40 L LYMPH) MONOCYTE (test code = MON) 2 % 0-8 N EOSINOPHIL (test code = EOS) 2 % 0-4 N PLATELET ESTIMATE (test code DECREASED ADEQ A = PLTEST) PLATELET MORPHOLOGY (test LARGE PLATELETS NORMAL A code = PLTMORPH) CBC W/AUTO [id number] 04:56:00 Test Item Value Reference Range Interpretation Comments WHITE BLOOD CELL (test 11.2 K/mm3 6.6-12.1 code = WBC) RED BLOOD CELL (test 3.09 M/mm3 3.45-5.01 L code = RBC) HEMOGLOBIN (test code = 8.3 g/dL 10.7-13.9 L HGB) HEMATOCRIT (test code = 26.8 % 32.1-42.1 L HCT) MEAN CELL VOLUME (test 87 fL 84.1-94.8 N code = MCV) MEAN CELL HGB (test code 26.9 pg 27-35 L = MCH) MEAN CELL HGB 31.0 gm/dL 32.2-34.1 L CONCETRATION (test code = MCHC) RED CELL DISTRIBUTION 17.4 % 12.4-16.5 H WIDTH (test code = RDW) PLATELET COUNT (test 77 K/mm3 133-385 LL RESULT S CALLED TO code = PLT) READ JED K & CONFIRMED? Y.BY F.LABAdrian 0456Results verified by rep eat analysis IMMATURE PLATELET 8.4 % 0.0-10.8 N FRACTION (test code = IPF) MEAN PLATELET VOLUME 12.9 fl 9.1-12.7 H (test code = MPV) MANUAL DIFF REQUIRED YES (test code = MDIFF) RBC MORPHOLOGY REQUIRED NORMAL NORMAL (test code = RBCM) PLATELET MORPHOLOGY ABNORMAL NORMAL REQUIRED (test code = PLTMR) WBC [id number] 04:56:00 Test Item Value Reference Range Interpretation Comments SEGMENTED NEUTROPHILS (test code = SEG) % 56.5-79.4 LYMPHOCYTE (test code = LYMPH) % 20-40 CBC W/AUTO [id number] 04:56:00 Test Item Value Reference Range Interpretation Comments WHITE BLOOD CELL (test 11.2 K/mm3 6.6-12.1 code = WBC) RED BLOOD CELL (test 3.09 M/mm3 3.45-5.01 L code = RBC) HEMOGLOBIN (test code = 8.3 g/dL 10.7-13.9 L HGB) HEMATOCRIT (test code = 26.8 % 32.1-42.1 L HCT) MEAN CELL VOLUME (test 87 fL 84.1-94.8 N code = MCV) MEAN CELL HGB (test code 26.9 pg 27-35 L = MCH) MEAN CELL HGB 31.0 gm/dL 32.2-34.1 L CONCETRATION (test code = MCHC) RED CELL DISTRIBUTION 17.4 % 12.4-16.5 H WIDTH (test code = RDW) PLATELET COUNT (test 77 K/mm3 133-385 LL RESULT S CALLED TO code = PLT) LOVE.READ JED K & CONFIRMED? Y.BY F.LAB.TM 0456Results verified by rep eat analysis IMMATURE PLATELET 8.4 % 0.0-10.8 N FRACTION (test code = IPF) MEAN PLATELET VOLUME 12.9 fl 9.1-12.7 H (test code = MPV) MANUAL DIFF REQUIRED YES (test code = MDIFF) RBC MORPHOLOGY REQUIRED NORMAL NORMAL (test code = RBCM) PLATELET MORPHOLOGY ABNORMAL NORMAL REQUIRED (test code = PLTMR) WBC [id number] 04:56:00 Test Item Value Reference Range Interpretation Comments SEGMENTED NEUTROPHILS (test code = SEG) % 56.5-79.4 LYMPHOCYTE (test code = LYMPH) % 20-40 COMPREHENSIVE METABOLIC [id number] 04:39:00 Test Item Value Reference Range Interpretation Comments SODIUM (test code = NA) 141 mEq/L 135-145 N POTASSIUM (test code = K) 4.2 mEq/L 3.5-5.0 N CHLORIDE (test code = CL) 108 mEq/L 100-115 N CARBON DIOXIDE (test code = CO2) 24 mEq/L 22-31 N ANION GAP (test code = GAP) 13.00 10-20 N GLUCOSE (test code = GLU) 130 mg/dL 65-110 H BLOOD UREA NITROGEN (test code = 4 mg/dL 7-18 L BUN) GLOMERULAR FILTRATION RATE (test 95 ml/min >60 N code = GFR) CREATININE (test code = CREAT) 0.7 mg/dL 0.5-1.0 N TOTAL PROTEIN (test code = PROT) 7.5 gm/dL 6.3-8.2 N ALBUMIN (test code = ALB) 3.6 gm/dL 3.4-4.8 N CALCIUM (test code = CA) 8.1 mg/dL 8.4-10.2 L BILIRUBIN TOTAL (test code = BILT) 0.5 mg/dL 0.2-1.0 N SGOT/AST (test code = AST) 33 units/L 15-37 N SGPT/ALT (test code = ALT) 27 units/L 12-78 N ALKALINE PHOSPHATASE TOTAL (test 65 units/L 46-116 N code = ALKP) CBC W/AUTO [id number] 19:13:00 Test Item Value Reference Range Interpretation Comments WHITE BLOOD CELL 5.9 K/mm3 6.6-12.1 L (test code = WBC) RED BLOOD CELL (test 2.60 M/mm3 3.45-5.01 L code = RBC) HEMOGLOBIN (test 6.9 g/dL 10.7-13.9 L RESULTS FERMIN IFIED BY code = HGB) REPEAT ANALYSIS RESULTS CALLED TO GIANNA VERDUGOREAD BACK & CONFIRME D? Y.BY F.LAB.[facility] 05/03. HEMATOCRIT (test 22.1 % 32.1-42.1 L code = HCT) MEAN CELL VOLUME 85 fL 84.1-94.8 N (test code = MCV) MEAN CELL HGB (test 26.5 pg 27-35 L code = MCH) MEAN CELL HGB 31.2 gm/dL 32.2-34.1 L CONCETRATION (test code = MCHC) RED CELL 17.6 % 12.4-16.5 H DISTRIBUTION WIDTH (test code = RDW) PLATELET COUNT (test 68 K/mm3 133-385 LL RESULT S CALLED TO code = PLT) SUREKHA.READ BA CK & CONFIRMED? Y.BY F.LAB.[facility] 05/03 IMMATURE PLATELET 6.4 % 0.0-10.8 N FRACTION (test code = IPF) MEAN PLATELET VOLUME 11.2 fl 9.1-12.7 N (test code = MPV) NEUTROPHIL % (test 96.2 % 56.5-79.4 H code = NT%) LYMPHOCYTE % (test 2.6 % 14.3-34.3 L code = LY%) MONOCYTE % (test 0.5 % 5.1-10.4 L code = MO%) EOSINOPHIL % (test 0.2 % 0.1-3.0 N code = EO%) BASOPHIL % (test 0.2 % 0.1-1.0 N code = BA%) NEUTROPHIL # (test 5.7 K/mm3 code = NT#) LYMPHOCYTE # (test 0.2 K/mm3 code = LY#) MONOCYTE # (test 0.0 K/mm3 code = MO#) EOSINOPHIL # (test 0.01 K/mm3 code = EO#) BASOPHIL # (test 0.0 K/mm3 code = BA#) RBC MORPHOLOGY ABNORMAL NORMAL 3+ HYPO, REQUIRED (test code = RBCM) PLATELET MORPHOLOGY ABNORMAL NORMAL SL.PLT C LUMPINGS REQUIRED (test code PRESENT = PLTMR) LACTIC [id number] 19:05:00 Test Item Value Reference Range Interpretation Comments LACTIC ACID (test 4.5 MMOL/L 0.5-2.2 HH RESULTS CA LLED TO code = LACT) MARIBEL.READ BACK & CONFIRMED? YES. BY GlenAS04 04/17. COMPREHENSIVE METABOLIC [id number] 19:01:00 Test Item Value Reference Range Interpretation Comments SODIUM (test code = NA) 139 mEq/L 135-145 N POTASSIUM (test code = K) 3.1 mEq/L 3.5-5.0 L CHLORIDE (test code = CL) 106 mEq/L 100-115 N CARBON DIOXIDE (test code = CO2) 20 mEq/L 22-31 L ANION GAP (test code = GAP) 15.70 10-20 N GLUCOSE (test code = GLU) 139 mg/dL 65-110 H BLOOD UREA NITROGEN (test code = 6 mg/dL 7-18 L BUN) GLOMERULAR FILTRATION RATE (test 71 ml/min >60 N code = GFR) CREATININE (test code = CREAT) 0.9 mg/dL 0.5-1.0 N TOTAL PROTEIN (test code = PROT) 6.1 gm/dL 6.3-8.2 L ALBUMIN (test code = ALB) 3.2 gm/dL 3.4-4.8 L CALCIUM (test code = CA) 7.1 mg/dL 8.4-10.2 L BILIRUBIN TOTAL (test code = BILT) 0.7 mg/dL 0.2-1.0 SGOT/AST (test code = AST) 23 units/L 15-37 SGPT/ALT (test code = ALT) 20 units/L 12-78 N ALKALINE PHOSPHATASE TOTAL (test 60 units/L 46-116 code = ALKP) PROTHROMBIN [id number] 19:01:00 Test Item Value Reference Range Interpretation Comments PROTHROMBIN TIME PATIENT (test code 13.3 secs 10.4-12.4 H = PTP) THROMBOPLASTIN TIME [id number] 19:01:00 Test Item Value Reference Range Interpretation Comments THROMBOPLASTIN TIME PARTIAL (test 20.6 secs 22-38 L code = PTT) [id number] 19:01:00 Test Item Value Reference Range Interpretation Comments FIBRINOGEN (test code = FIB) 141 mg/dL 309-518 L UA RFLX MICR CULT IF [id number] 12:47:00 Test Item Value Reference Range Interpretation Comments UA COLOR (test code = YELLOW YELLOW COLU) UA APPEARANCE (test code Slightly-Cloudy CLEAR = APPU) UA GLUCOSE DIPSTICK (test NEGATIVE NEG code = DGLUU) UA BILIRUBIN DIPSTICK NEGATIVE NEG (test code = BILU) UA KETONE DIPSTICK (test NEGATIVE NEG code = KETU) UA SPECIFIC GRAVITY (test 1.024 1.001-1.035 N code = SGU) UA BLOOD DIPSTICK (test 3+ NEG A code = KELIN) UA PH DIPSTICK (test code 6.0 5-9 = CAROLIN) UA PROTEIN DIPSTICK (test NEGATIVE NEG code = PROU) UA UROBILINIOGEN DIPSTICK NEGATIVE mg/dL NEG (test code = URO) UA NITRITE DIPSTICK (test NEG NEG code = STERLING) UA LEUKOCYTE ESTERASE TRACE NEG A DIPSTICK (test code = LEUU) UA WBC (test code = WBCU) 6-10 #/hpf NONE SEEN A UA RBC (test code = RBCU) TOO NUMEROUS TO CNT NONE SEEN A #/hpf UA EPITHELIAL CELLS (test RARE #/HPF RARE-FEW code = EPIU) UA BACTERIA (test code = RARE /HPF RARE-FEW BACU) Indication for culture: RiskForSepsis-no oth srcSpecimen Description: CLEAN CATCHUR HCG [id number] 12:47:00 Test Item Value Reference Range Interpretation Comments UR HCG QUAL (test NEGATIVE 1. Very di lute urine code = HCGQLU) specimens, as indicated by a lowspecific g ravity, may not contain rep resentative levels ofhCG. 2 . False negative result s may occur when the levels of hCGare below the sensi tivity level of the test. If is still suspec ramana, a first morningurine sp ecimen should be colle cted 48 hours later and tested. Indication for culture: RiskForSepsis-no oth srcSpecimen Description: CLEAN CATCHUA RFLX MICR CULT IF [id number] 12:36:00 Test Item Value Reference Range Interpretation Comments UA COLOR (test code = COLU) YELLOW UA APPEARANCE (test code = APPU) CLEAR UA GLUCOSE DIPSTICK (test code = NEGATIVE DGLUU) UA BILIRUBIN DIPSTICK (test code = NEGATIVE BILU) UA KETONE DIPSTICK (test code = KETU) NEGATIVE UA SPECIFIC GRAVITY (test code = SGU) 1.001-1.035 UA BLOOD DIPSTICK (test code = KELIN) NEGATIVE UA PH DIPSTICK (test code = CAROLIN) 5-9 UA PROTEIN DIPSTICK (test code = PROU) NEGATIVE UA UROBILINIOGEN DIPSTICK (test code = mg/dL NEG URO) UA NITRITE DIPSTICK (test code = STERLING) NEGATIVE UA LEUKOCYTE ESTERASE DIPSTICK (test NEG code = LEUU) UA WBC (test code = WBCU) #/hpf NONE SEEN UA EPITHELIAL CELLS (test code = EPIU) #/HPF RARE-FEW Indication for culture: RiskForSepsis-no oth srcSpecimen Description: CLEAN CATCHUR HCG [id number] 12:36:00 Test Item Value Reference Range Interpretation Comments UR HCG QUAL (test NEGATIVE 1. Very di lute urine code = HCGQLU) specimens, as indicated by a lowspecific g ravity, may not contain rep resentative levels ofhCG. 2 . False negative result s may occur when the levels of hCGare below the sensi tivity level of the test. If is still suspec ramana, a first morningurine sp ecimen should be colle cted 48 hours later and tested. Indication for culture: RiskForSepsis-no oth srcSpecimen Description: CLEAN CATCHPROTHROMBIN [id number] 10:14:00 Test Item Value Reference Range Interpretation Comments PROTHROMBIN TIME PATIENT (test code 13.3 secs 10.4-12.4 H = PTP) THROMBOPLASTIN TIME [id number] 10:14:00 Test Item Value Reference Range Interpretation Comments THROMBOPLASTIN TIME PARTIAL (test 19.4 secs 22-38 L code = PTT) [id number] 10:14:00 Test Item Value Reference Range Interpretation Comments FIBRINOGEN (test code = FIB) 102 mg/dL 309-518 L COMPREHENSIVE METABOLIC [id number] 09:54:00 Test Item Value Reference Range Interpretation Comments SODIUM (test code = NA) 137 mEq/L 135-145 N POTASSIUM (test code = K) 4.8 mEq/L 3.5-5.0 N CHLORIDE (test code = CL) 106 mEq/L 100-115 N CARBON DIOXIDE (test code = CO2) 23 mEq/L 22-31 N ANION GAP (test code = GAP) 12.80 10-20 N GLUCOSE (test code = GLU) 105 mg/dL 65-110 N BLOOD UREA NITROGEN (test code = 8 mg/dL 7-18 N BUN) GLOMERULAR FILTRATION RATE (test 95 ml/min >60 N code = GFR) CREATININE (test code = CREAT) 0.7 mg/dL 0.5-1.0 N TOTAL PROTEIN (test code = PROT) 6.4 gm/dL 6.3-8.2 N ALBUMIN (test code = ALB) 3.3 gm/dL 3.4-4.8 L CALCIUM (test code = CA) 7.3 mg/dL 8.4-10.2 L BILIRUBIN TOTAL (test code = BILT) 0.3 mg/dL 0.2-1.0 N SGOT/AST (test code = AST) 6 units/L 15-37 L SGPT/ALT (test code = ALT) 12 units/L 12-78 N ALKALINE PHOSPHATASE TOTAL (test 46 units/L 46-116 N code = ALKP) HGB [id number] 06:49:00 Test Item Value Reference Range Interpretation Comments HEMOGLOBIN (test code = 4.5 g/dL 10.7-13.9 LL RESU LTS CALLED TO HGB) DAY.READ BACK & CONFIRMED? YES. BY F.LAB.IR1 05/0349.Results ve rified by repeat mindi sis HEMATOCRIT (test code = 16.2 % 32.1-42.1 LL RESU LTS CALLED TO HCT) DAY.READ BACK & CONFIRMED? YES. BY F.LAB.IR1 05/0349.Results ve rified by repeat mindi sis BLOOD BANK [id number] 12:44:00Product available (12/20/15 7:44 AM)[facility] [id number] 10:29:14991Pedzswbr HermannCHEM FGRKU9792-41-05 10:29:39586Ejhjmjqk HermannCHEM NWLOM1810-66-92 10:29:007.9[facility]CHE[facility] WEXMC2359-37-04 10:29:0024[facility]annCHE[facility] NJWVB1871-77-58 10:29:004.8 [facility] DAVQB3309-78-17 10:29:68811Pcyxdpca HermannCHEM PANEL 2015-12-20 10:29:0095[facility]annCHE[facility] WYNSH9378-38-87 10:29:000.44[facility]annCHE[facility] OTVUY4927-54-27 10:29:008[facility] HHAOI8698-28-63 10:29:0012.8[facility]annCHE[facility] GCDUH3447-15-31 10:29:001.9[facility] CSNFDPMJGX6049-79-10 10:29:001+ (12/20/15 5:29 AM)[facility]annHEMATOLOGY 2015-12-20 10:29:001+ *ABN*(12/20/15 5:29 AM)[facility] OoggaboDGCBFUWGTU6859-61-87 10:29:00Normal (12/20/15 5:29 AM)[facility] PmvzvhbITCXWYFRXB4219-02-29 10:29:00 Test Item Value Reference Range Interpretation Comments Tot Cell Ct (test code = Tot Cell Ct) 100 1 [facility] YhmnphwLCRODNMYHH6328-47-52 10:29:001+ *ABN*(12/20/15 5:29 AM)[facility] QyqmdggKMMEHDCROR7002-61-78 10:29:003.9[facility] ZpkxbybDOBFQMCLLF2642-97-19 10:29:0032.0[facility] XxgzxzyZNGZRBFVDU4325-61-44 10:29:004.0[facility] [place] MIKPHHRAZF1073-27-44 10:29:000.0[facility] HngikcwLTYSTJIYEN2085-39-68 10:29:00 64.0[facility] IrbhddvOHPHFZVCDC1389-60-45 10:29:000.0[facility]annHEMATOLOGY 2015-12-20 10:29:002.0[facility] DgjwszsKSKFTUUZBF1475-63-83 10:29:000.2[facility] BewdzwsTFPIYEOJMV1054-50-53 10:29:0030.5[facility] BwnnomxIFILRAFCPR8358-22-88 10:29:0017.7[facility] FjbluokOUVHPQUOYV6065-04-47 10:29:009.5[facility] TVTDTXOZHK2155-86-67 10:29:02245Zucuynpe UqgedhwJEAOVHUMEW5485-16-70 10:29:00 21.6[facility] CpkgfqcGRCPSDJPAP2935-82-03 10:29:006.1[facility]annHEMATOLOGY 2015-12-20 10:29:006.6[facility] AdzgcpjMGBCWQGDXP1743-49-74 10:29:002.68[facility] RlsovkmLTGBMMPWBT3019-84-86 10:29:0080.6[facility] YuqacjhHCBNRKGWVT7185-77-08 10:29:00 Test Item Value Reference Range Interpretation Comments MCH (test code = MCH) 24.5 pg 27.0-31.0 [facility] KTTHC0583-73-65 09:24:002.1[facility] HermannELECTROLYTES 2015-12-19 09:24:81059Abllmfqh PucpijiDHIFAKCWLPUV8816-57-72 09:24:000.45 [facility] KaayjpyPIGLTBFGPKOY4985-92-81 09:24:004.1[facility] HermannELECTROLYTES 2015-12-19 09:24:0026[facility] MdpdmyiMDTMPXLJCJXJ2551-33-14 09:24:19145Ceqcueit PaqkvnhNWRSXDBQMTYI5119-75-85 09:24:007.9[facility] FnhfqehWCFHBFXAJNYP3802-59-98 09:24:0010.1[facility] VcjgiryVVDGATZRIOUE0846-47-39 09:24:05655Rbshtjba [place] URSSHGHRNAXC2298-66-72 09:24:19387Ruwpnght KsrygqpJHQQIUUJPLOD7345-14-65 09:24:007[facility] CqniiwaZCUESLPROR3263-24-76 09:24:73701Gweypvni [facility] AOEJPVKWJD0328-12-78 09:24:00 Test Item Value Reference Range Interpretation Comments MCH (test code = MCH) 24.7 pg 27.0-31.0 [facility] XvunvmlQTOUFXXAME4379-86-28 09:24:0032.3[facility]annHEMATOLOGY 2015-12-19 09:24:009.2[facility] LtqhrosYHSNUAZNZG3010-07-49 09:24:0017.5[facility] XslxvunKRRUEUPPUO2415-70-11 09:24:0022.0[facility] BqlffgeXCRXCASPLV3318-04-48 09:24:0076.8[facility] LqjprzlHITEFBTYWM1386-89-39 09:24:007.1[facility] [place] JLBTVRQWPL6604-96-41 09:24:002.87[facility] BmutcbfOSCBQTQIEC8900-45-87 09:24:00 7.6[facility]annCHEM UHJKL6076-44-73 20:10:91372Eivwgxkb HermannCHEM PANEL 2015-12-18 20:10:14455Afuqdjvb [facility]CHE[facility] ADJRI5354-21-86 20:10:000.59[facility]annCHE[facility] WGJBI8527-88-26 20:10:005[facility]annCHE[facility] EJYOV7831-66-15 20:10:16386Rebekbma [facility]annCHEM BISUU7506-00-78 20:10:06628Jmdxxrks [facility]annCHE[facility] UERCM6725-44-73 20:10:003.9[facility]annCHE[facility] KXKLT9086-81-31 20:10:0013.9 [facility]CHE[facility] AOMVY6785-57-99 20:10:0022[facility]annCHEM PANEL 2015-12-18 20:10:007.7[facility]annCHE[facility] CSICG2343-47-17 20:10:002.8[facility]annCHE[facility] FORGJ9822-83-36 20:10:001.5[facility] NmuqteuRUICKBSLDI8049-86-64 20:10:007.3[facility] OutxvwkEOXWSQLEYP4433-21-54 20:10:003.09[facility] [place] EFCYBAJXNR1333-95-53 20:10:006.9[facility] JwngvuwAGJQDJIUZQ7011-06-68 20:10:00 Test Item Value Reference Range Interpretation Comments MCH (test code = MCH) 23.5 pg 27.0-31.0 [facility] XmciybwCIDASQIYCM2311-62-18 20:10:0078.1[facility]annHEMATOLOGY 2015-12-18 20:10:0030.1[facility] YbembkmECXNUXNSEY1531-50-32 20:10:0024.2[facility] NzbtjcbCWPUUPIDGI1345-06-17 20:10:0017.4[facility] JvubfzsIKGUKEGRJG4029-31-42 20:10:009.2[facility] XqilnpnUOIVPDZRRA3055-60-69 20:10:0098[facility] LFPEPYNHAR5984-44-33 20:10:000.2[facility] YfafrdvWQVTZCUTJN7262-55-91 20:10:006.5 [facility] YamfheaNKDWGQJDJZ3520-08-11 20:10:00Moderate *ABN*(12/18/15 3:10 PM) [facility] JmrkvusKOWTZEZZCM0008-95-71 20:10:000.1[facility]annHEMATOLOGY 2015-12-18 20:10:001+ *ABN*(12/18/15 3:10 PM)[facility] CsjldyqEADKIPUABZ5489-55-84 20:10:001+ (12/18/15 3:10 PM)[facility] QbsuhacBMFFCBMLOD8012-31-56 20:10:000.2 [facility] KsddnxeNICMFLNQXX1887-68-65 20:10:000.1[facility]annHEMATOLOGY 2015-12-18 20:10:001.6[facility] SxmcgluHFYLAEQBWV0559-38-89 20:10:002.6[facility] JsrcouoQAMVHHYULN0487-24-46 20:10:0095.5[facility] HermannURINE RUMZ0001-24-93 09:51:00Negative (12/18/15 4:51 AM)[facility]annANEMIA RSJTI1045-91-71 04:57:00 8[facility]annANEMIA FMVEV7526-87-60 04:57:40240Cgjxlxgs HermannANEMIA STUDY 2015-12-18 04:57:005[facility]annANEMIA NRLJS3002-99-15 04:57:0013[facility]annANEMIA OZFPX3840-83-76 04:57:70585Tnzbpedc [facility]annCHEM VOGZK8406-27-80 04:57:003.0[facility] HermannPARATHYROID KTTQIPS7304-71-52 04:57:000.99[facility] HermannPARATHYROID VBPQWJA3818-06-91 04:57:001.04[facility] HermannPARATHYROID AKNTXCJ3243-40-73 04:57:0038.6[facility] MkudvedAZDDGJQNLG3109-69-53 03:49:342 [facility] JsbiwguDKEMEPTKNN8431-59-59 03:49:34<2.9 (12/17/15 10:49 PM)[facility]annBLOOD BANK KPEGBYA3714-36-88 03:37:00Product available (12/17/15 10:37 PM) [facility] RzcoohkJYZUSGTBGO6712-20-46 03:10:00Normal (12/17/15 10:10 PM)[facility] CewdxpuXMLGAYCZQC4760-94-12 03:10:001.8[facility] LbjtndhGBKELAPPFW0678-56-60 03:10:009.0[facility] QbujbyiRVIIRCGIZS2836-23-59 03:10:0036.6[facility] IVZXLRHSZM5281-03-29 03:10:0051.9[facility] PjcuwuuTWDKDRXKGH0146-36-79 03:10:00 0.3[facility] ZtgwjhqLHFWWGTOZC6977-15-41 03:10:001.4[facility]annHEMATOLOGY 2015-12-18 03:10:002.0[facility] GsrmfypYDQONTKMIW8666-49-15 03:10:000.7[facility] GycjpszSTFDBGDHFH7384-57-14 03:10:000.1[facility] QodieiwZKVOSVPBML0553-02-41 03:10:001+ (12/17/15 10:10 PM)[facility] SbwzwxnTYHEYQKCXW1109-26-14 03:10:001+ *ABN*(12/17/15 10:10 PM)[facility] HbzuepkCUCJDBOZMJ2956-64-17 03:10:001+ *ABN*(12/17/15 10:10 PM)[facility] DHAJCMM2685[facility]37-10 03:03:00 Negative (12/17/15 10:03 PM)[facility] NvopozyZPQLCDCXAH4131-82-79 09:10:00Normal (07/01/15 4:10 AM)[facility] RamqhdlLROIUDOJAC1608-02-10 09:10:0066.0[facility] WxdlrxyDFSTKNRDNB2655-01-91 09:10:00Normal (07/01/15 4:10 AM)[facility] EPVHPHESAV7545-81-64 09:10:0017.0[facility] XunyxxuSXZJZYSELW2629-75-01 09:10:00 0.2[facility] YlufrbnNKMFLSNJBZ3314-59-67 09:10:0019.5[facility] 2015-07-01 09:10:0032.6[facility] UivxnbxFUZYBUTWYY1452-54-34 09:10:0091.9[facility] NgroisyVAZSTLHUVH2299-18-94 09:10:00 Test Item Value Reference Range Interpretation Comments MCH (test code = MCH) 30.0 pg 27.0-31.0 [facility] MoigzhxTKETJUXFRR1739-95-63 09:10:009.2[facility]ann[facility]Y 2015-07-01 09:10:81318Ragaoquv SkgngfrLRBONZNGIC3823-41-07 09:10:002.90[facility] SopmvdkMHNGWULFPT2744-50-61 09:10:0026.6[facility] NcditciCEHUSDBKVJ6700-61-05 09:10:008.7[facility] LbthusbEGLCWMUGIV9320-97-73 09:10:004.1[facility] ZUVAMYEWXL3786-02-47 09:10:000.5[facility] NvkvevpNEHPTRSXUK9207-05-72 09:10:00 13.0[facility] ZggpbmmGTCLJKKUSL6050-77-48 09:10:000.7[facility]annHE[facility] 2015-07-01 09:10:002.7[facility] EqsnfyiUJORLFKLWY8081-90-11 09:10:000.0[facility] DseydxeGLNSNQGGKR8433-95-01 09:10:004.0[facility] PglunxyUZWWWZZPUY4099-77-78 21:50:0019.5[facility] OvffligSSJHOOUXFZ7322-53-04 21:50:0091.8[facility] TBPLGKZAAW1558-06-58 21:50:0024.8[facility] ZzofeesSAKWBFCJOH8151-48-05 21:50:00 32.6[facility] NtytqmtLRKBFTQIMW6335-09-99 21:50:00 Test Item Value Reference Range Interpretation Comments MCH (test code = MCH) 29.9 pg 27.0-31.0 [facility] YiygrawQDAOIRFBLQ9252-63-27 21:50:008.7[facility]annHEMATOLOGY 2015-06-30 21:50:006.0[facility] ThqnbbaHEAJYHVHYB1078-06-29 21:50:008.1[facility] UklsplnHMYJVFZSAS8926-84-01 21:50:002.71[facility] VrsanncMWAOSKWETK0212-85-78 21:50:0097[facility] OmxcuzlDLWNTHOVQP2318-13-47 21:50:000.2[facility] UKWKDNDHTS5654-06-29 21:50:000.4[facility] QcnybezFOLENFTRWC1240-36-46 21:50:000.4 [facility] IvwpooiYKBTJXPVHW7496-16-24 21:50:005.0[facility]annHEMATOLOGY 2015-06-30 21:50:002.5[facility] RlstsvhCFQNZDXCTK5334-66-61 21:50:006.6[facility] UuzjjxjJDCEBYSHOX6373-44-38 21:50:0084.1[facility] FbykvriAMUNBPEWVJ4351-44-58 21:50:006.6[facility] UouvhxuVQTUKIWNRE9011-30-51 21:50:000.2[facility] IDRMWDTZXS5507-50-42 17:31:07582Wgwsvxub JlrqufnXXHGPKPXHG4777-68-62 17:31:008.8 [facility] BvzottkCQVAMHBVTQ6682-09-50 17:31:0032.6[facility]annHEMATOLOGY 2015-06-30 17:31:0019.6[facility] HksenbfJUAPYQTNMQ1028-31-36 17:31:0025.1[facility] UddylcfEXJFLQRFSL0646-41-85 17:31:0091.8[facility] PsonujeRGMHDTUEZD3723-96-99 17:31:00 Test Item Value Reference Range Interpretation Comments MCH (test code = MCH) 29.9 pg 27.0-31.0 [facility] QuaaylvKBCOHRIDFP6004-30-25 17:31:002.73[facility]annHEMATOLOGY 2015-06-30 17:31:006.4[facility] TrdtfbqEVAODTAYCO0920-58-70 17:31:008.2[facility] PgnxmssWKPYHIAHNJ2570-26-41 17:31:00Normal (06/30/15 12:31 PM)[facility] GEEHDRFMRU2156-81-56 17:31:00Normal (06/30/15 12:31 PM)[facility] 2015-06-30 17:31:0088.7[facility] EbiulajNQWBHSKJBD5376-85-36 17:31:005.7[facility] UwjtpnlJYWZZERBFO8802-19-40 17:31:004.5[facility] CyaaufjGYBQVIILTK6091-93-73 17:31:005.6[facility] AgfcbvtBSFWGVVHZC6897-03-72 17:31:000.4[facility] BLZAQGLYAE1476-03-99 17:31:000.8[facility] LjdlrqwXNCIINOCDE3380-84-16 17:31:000.4 [facility] FhykrvtRHIUEQAHIX5125-61-33 17:31:000.1[facility]annHEMATOLOGY 2015-06-30 17:31:000.3[facility] HvdganuPJOPJOMDGX9596-34-74 17:31:001+ (06/30/15 12:31 PM)[facility] IkqmtztHTYAHQPOFD5733-88-68 17:31:00Moderate *ABN*(06/30/15 12:31 PM)[facility] HIALVKA6225-91-58 23:16:00Product available (06/29/15 6:16 PM)[facility] MUJMSBP7325-47-51 20:00:00Product available (06/29/15 3:00 PM)[facility] KyvhchrRGHKVYCHDW3932-04-17 18:54:00Normal (06/29/15 1:54 PM)[facility] ZfbclbsAXTMWBFKMM8250-31-21 18:54:001+ (06/29/15 1:54 PM)[facility] NkjdzwjNIMMNOKIAU3747-59-79 18:54:001+ *ABN*(06/29/15 1:54 PM) [facility]annURINE LMCN7596-84-29 18:54:00Negative (06/29/15 1:54 PM)[facility] MOGGCBZ5082-03-07 17:21:00Product available (06/29/15 12:21 PM) [facility] RZMSUQG2034-63-70 17:11:00Product available (06/29/15 12:11 PM)[facility]annCHEM ZLFZZ3024-48-49 14:30:0089[facility]annCHEM HUERU6557-06-09 14:30:0014[facility]annCHEM GVKKA6839-42-34 14:30:0014 [facility]annCHEM GRUFI2755-24-00 14:30:007.0[facility]annCHEM PANEL 2015-06-29 14:30:003.3[facility]annCHEM DZRUZ1297-54-88 14:30:000.0[facility]annCHEM BNDVR0611-10-35 14:30:000.9[facility]annCHEM BZHDO8568-59-66 14:30:000.1[facility]annCHEM RNRYG7840-73-83 14:30:003.7[facility]annCHEM TKBHB0422-83-05 14:30:000.1[facility]annCHEM NGWUS7840-71-38 12:24:68020 [facility]annCHEM VRNMP1217-40-31 12:24:380.48[facility] HermannCHEM PANEL 2015-06-29 12:24:05099Shpkalzt HermannCHEM BWAQK9520-22-15 12:24:388.4[facility] HermannCHEM IEYTV4179-16-30 12:24:384.0[facility]annCHEM LNZRU0515-00-98 12:24:27146Wemgoxka HermannCHEM EXLYN6087-03-18 12:24:3824[facility] HermannCHEM DINYC4612-60-18 12:24:81125Bktaelyh HermannCHEM FETTZ2438-97-55 12:24:387 [facility]annCHEM AXRTH6652-51-50 12:24:3812.0[facility] 2015-[facility]29 12:24:38 Test Item Value Reference Range Interpretation Comments PTT (test code = PTT) 25.6 s 22.9-35.8 [facility] TtnyksyCMZMGWPVZP0056-44-51 12:24:38 Test Item Value Reference Range Interpretation Comments PT (test code = PT) 13.3 s 12.0-14.7 [facility] GqftnxyZGKNQTCLSL4631-56-38 12:24:380.98[facility] DJUDRFY5760-61-54 12:24:00Positive 1(06/29/15 7:24 AM)[facility] 2015-05-26 10:38:002.9[facility] RoellzzTSATVCFRPN2938-61-93 10:38:001.2[facility] DkbutqqMJRHHPMSQY9996-78-13 10:38:000.5[facility] EvxmuglQSRLLUEGPI7883-58-55 10:38:000.4[facility] OztiejfCWYPGWMRAE8890-18-86 10:38:0057.5[facility] IHTRXFDISG1951-55-44 10:38:0024.1[facility] AcmqdevICFSICNTVM6696-11-68 10:38:00 0.7[facility] OsuvckaZCFNOWLVIM1118-49-81 10:38:009.3[facility]annHEMATOLOGY 2015-05-26 10:38:008.4[facility] DzbfvwgVSGDUMQUUU8810-84-48 10:38:002.88[facility] CeohjbvTVYDVWZPFF2199-89-02 10:38:005.1[facility] ZyzuxelHGCYEKUKER2662-54-58 10:38:0025.1[facility] OhfswenJHIHBYTLTP0729-26-25 10:38:007.8[facility] CRMDJAWNBF2182-67-64 10:38:0087.3[facility] KjaaliaSMGKELDJGC2194-07-08 10:38:00 31.2[facility] PfimuygTKFTVCMHWJ6081-95-61 10:38:00 Test Item Value Reference Range Interpretation Comments MCH (test code = MCH) 27.3 pg 27.0-31.0 [facility] QpgdaueHGEKVWPDNS2566-98-97 10:38:008.8[facility]annHEMATOLOGY 2015-05-26 10:38:42200Comxphdc VteczzxWGXRXASXRB4852-70-32 10:38:0019.1[facility] NrqgdkaYIPAMQOFFV7120-09-01 11:22:000.3[facility] NwggmiiCXDLTBBXNC0037-55-89 11:22:006.7[facility] YunkhnpPGTWKYCXDG4310-54-94 11:22:008.8[facility] ZOVMIMLFBE5336-90-50 11:22:001.2[facility] BjjcitsCCIRGZOILY0397-43-02 11:22:000.4 [facility] SlbcsdkBENFTHGQGS0102-86-61 11:22:003.3[facility]annHE[facility]OLOGY 2015-05-25 11:22:000.5[facility] UjxurwyUQEBUWUZDT9849-24-41 11:22:0021.7[facility] FxfxjyjBZDZSHELJW4451-93-27 11:22:0062.5[facility] LtmsfefVPVBIMCLDO2191-43-10 11:22:0018.8[facility] TrhznpzAKCTLRYNQX8084-08-14 11:22:0085.8[facility] WVOPHDPTXE1943-84-83 11:22:0031.4[facility] RiwwtidILCWIEQZVD5399-40-48 11:22:00 2.62[facility] ZeveadgAUQLASXEUM3781-22-70 11:22:005.3[facility]annHEMATOLOGY 2015-05-25 11:22:007.1[facility] GnbqmkyIFKMXISJZJ6728-41-09 11:22:98128Ydhaejik VvjfcjcDZHFEQIDSV4193-23-91 11:22:0022.5[facility] GbyuuajGBXYVIZMEN0493-57-86 11:22:00 Test Item Value Reference Range Interpretation Comments MCH (test code = MCH) 27.0 pg 27.0-31.0 [facility] BpewxfzHUMMJBQUEH4178-59-35 11:22:008.7[facility]annHEMATOLOGY 2015-05-24 10:31:76369Bufktadw TmbxxgtHCNETVLIMF0657-08-08 10:31:009.0[facility] LhdczafAEXUJFVNQN7069-13-92 10:31:0018.8[facility] WimtgepJEXVLCUVNM4794-06-30 10:31:0031.7[facility] PztaqdgEMORAJAIWZ2365-49-90 10:31:00 Test Item Value Reference Range Interpretation Comments MCH (test code = MCH) 26.8 pg 27.0-31.0 [facility] LtehgijNFTTAABGXC9756-03-27 10:31:002.67[facility]annHEMATOLOGY 2015-05-24 10:31:007.2[facility] PjzzaasORJWFUIQSA7873-71-36 10:31:0022.6[facility] EpuybdoBUSTCBWLXV2123-31-79 10:31:0084.4[facility] QhszejiJWXPBSQODN4044-85-32 10:31:004.8[facility] SymalvlUZTPQBKDEQ4759-60-38 10:31:001.1[facility] NBKCUXYCBM4213-78-68 10:31:000.5[facility] IkhpefmGRXARYTFSH9112-51-49 10:31:002.9 [facility] OkzpipxJBWVLDDTRU9831-58-64 10:31:000.3[facility]annHEMATOLOGY 2015-05-24 10:31:006.4[facility] KmqswdmCHGHKGHOKE1503-40-72 10:31:0010.0[facility] CszpreoZCUANBEAWT3713-23-98 10:31:000.4[facility] CfazudhTVQTQTHAUA9564-83-84 10:31:0023.0[facility] EonjzdpDXCNNERMLB0461-70-64 10:31:0060.2[facility] ANEMIA RFZYV5942-37-77 20:03:71610Uxtgycsi HermannANEMIA YTRZU6500-22-75 20:03:0017[facility] HermannANEMIA ZKITZ7412-02-59 20:03:74792Ohqzfhcu [place] ANEMIA QFGYR4065-05-30 20:03:50095Ldujkxfc HermannANEMIA WIDRV0830-55-59 20:03:0049[facility] HermannMOLECULAR ONIBHXVUCY7501-77-31 20:03:006.2[facility] HermannMOLECULAR XTVBOOKXFI0044-37-11 20:03:397572646Vhooavcn HermannBLOOD BANK CWNHJHA3795-69-14 17:04:00Product available (05/22/15 11:04 AM)[facility] TXWJEPT5760-87-12 12:51:00Product available (05/22/15 6:51 AM)[facility] HGJXUIQ5146-91-80 17:30:00Product available (05/21/15 11:30 AM) [facility] RKCROCG3852-39-83 16:00:00Product available (05/21/15 10:00 AM)[facility] GXMMMSM1183-50-63 10:55:00Negative (05/21/15 4:55 AM)[facility] BpwgbwoVZDZPJHKCEIJ3046-94-16 10:55:0010.8[facility] QPAVXTWVPRVF9680-07-97 10:55:0023[facility] CtwgphvMUJPPNCKLDHD3089-54-27 10:55:00 110[facility] GanvdhwEQFXNTQOUJHF6634-34-87 10:55:000.46[facility] TWNOMRYURAQV6674-52-41 10:55:69890Quztmmhq LmeumnwUGMTVWJEYXDB2800-31-27 10:55:0010[facility] RlfucqyDDWUIPAJOMEJ3813-06-75 10:55:42044Barjcbbs [facility] IZVUQEGVZRUK8680-92-85 10:55:008.2[facility] EpfbkuzKLLIUXMMUHVU6403-00-76 10:55:003.8[facility] HiuyjwlJIMCBJURDBNW2967-84-65 10:55:0078[facility] UCMGTANHBW5324-41-96 10:55:00 Test Item Value Reference Range Interpretation Comments PT (test code = PT) 14.1 s 12.0-14.7 [facility] BsysybnOAZEVLYWPB5424-33-80 10:55:00 Test Item Value Reference Range Interpretation Comments PTT (test code = PTT) 28.2 s 22.9-35.8 [facility] OzdipobUHODHLCCJR6247-43-47 10:55:001.06[facility]annURINE CHEM 2015-05-21 10:55:00Negative (05/21/15 4:55 AM)[facility] StkaeywJPAYGAADZR6685-10-06 23:43:001.00[facility] XadpwvpGRSTYMHBKE3671-28-43 23:43:00 Test Item Value Reference Range Interpretation Comments PTT (test code = PTT) 24.1 s 22.9-35.8 [facility] ImxmoicQCLNBDQUMM0918-22-35 23:43:00 Test Item Value Reference Range Interpretation Comments PT (test code = PT) 13.5 s 12.0-14.7 [facility] CampusOviursmGAWCWRMMWX8855-67-97 10:03:008.3[facility]annHEMATOLOGY 2015-05-10 10:03:0026.9[facility]BL[facility] ZVDVFUC9935-99-70 22:47:00 Product available (05/09/15 4:47 PM)[facility] CampusEjclfhvWTQPTKJBIR5126-51-74 19:22:00 21.1[facility] BysjckdPMQEJQPRQB0455-35-54 19:22:006.6[facility]annHEMATOLOGY 2015-05-09 13:31:000.0[facility] WwmjgwlXHKERRDBWK2106-05-04 13:31:00 Test Item Value Reference Range Interpretation Comments Max Amp (test code = Max Amp) 36 mm 52-71 [facility] EcpkpbkQANQNNGWCQ9490-70-68 13:31:002.8[facility]annHEMATOLOGY 2015-05-09 13:31:00 Test Item Value Reference Range Interpretation Comments Angle (test code = Angle) 63 degrees 64-80 [facility] NtuognqDTCYBJISTV3652-49-44 13:31:00 Test Item Value Reference Range Interpretation Comments R-time (test code = R-time) 0.6 min 0.4-0.7 [facility] CampusKidtibmNBODSYMHJW4329-85-36 13:31:00 Test Item Value Reference Range Interpretation Comments K-time (test code = K-time) 4.8 min 0.6-2.3 [facility] CampusGfyrccjASZPBGXHVQ8944-55-01 13:31:00 Test Item Value Reference Range Interpretation Comments ACT (TEG) (test code = ACT (TEG)) 105 s 86-118 [facility] HwcxpwxGDRZMQTJSQ6183-47-29 13:31:00 Test Item Value Reference Range Interpretation Comments Split Point (test code = Split Point) 0.3 min [facility] BkpnylnIGHBZWJNBD3977-42-13 13:31:00Citrated Whole Blood (05/09/15 7:31 AM)[facility] HermannURINE NORF7207-73-35 13:31:00Negative (05/09/15 7:31 AM) [facility] ZRFDGOL8743-48-77 12:39:00Negative (05/09/15 6:39 AM) [facility] CqeifpkYXOPDFGALO9919-35-86 12:39:002.68[facility]annHEMATOLOGY 2015-05-09 12:39:006.9[facility] KtdclmtKNNYDNQDCK6643-75-82 12:39:006.7[facility] LrecicaICZWSDZARC9665-14-07 12:39:89186Jsmnxpjh ZbdrffmHEAIYAEWYW8183-55-65 12:39:009.0[facility] IvgzcrhXQJWNQCBIO9072-10-19 12:39:0082.2[facility] RAUIPOLZXK6163-68-10 12:39:0019.3[facility] QsrcwcePGWBILJXZL5428-69-49 12:39:00 22.0[facility] JxrartzAVRBKVNUCR3072-50-68 12:39:00 Test Item Value Reference Range Interpretation Comments MCH (test code = MCH) 25.6 pg 27.0-31.0 [facility] JjtqusjQXPKWBGZWS7232-44-08 12:39:0031.2[facility]annHEMATOLOGY 2015-05-09 12:39:006.1[facility] KdohvttXGOEKZBXAG5130-97-08 12:39:000.1[facility] GfkfsbkZLLJSAGZBC6351-39-40 12:39:000.5[facility] VmpbcxgAJHQLDQRMG0081-78-62 12:39:000.1[facility] LjtcgzuCHKQHTZVRO2961-40-24 12:39:0089.5[facility] IUSACMFJOE5912-13-44 12:39:000.8[facility] SiiclpgLRAUVMEMCA3780-47-02 12:39:000.7 [facility] SgpqkmvRWVGIUGHGP5725-60-97 12:39:007.0[facility]annHEMATOLOGY 2015-05-09 12:39:002.0[facility] ZdbyklyNNMTNSHCSH5651-62-10 12:39:001+ (05/09/15 6:39 AM)[facility] JituvlwYBWZYOIYIB4811-04-57 12:39:00Normal (05/09/15 6:39 AM) [facility] NaqaqxmGBITFQYALC8925-04-78 21:09:006.6[facility]annHEMATOLOGY 2015-04-17 21:09:008.2[facility] OtwchfaDASBMNLYKN7178-48-66 21:09:0026.8[facility] FizajdgODDFYVVYZY9627-92-85 21:09:003.12[facility] SrmpphiGOOVGTWEUA9995-86-62 21:09:0018.4[facility] CiptsbkXMWMSFPQUK9157-48-77 21:09:12168Orukxvpx [facility] TFZGLXENZP9463-77-97 21:09:009.4[facility] QeqaavpRFKRCHZDQK6571-42-18 21:09:00 85.8[facility] BccfddhRFCWXAUPAD0421-80-96 21:09:00 Test Item Value Reference Range Interpretation Comments MCH (test code = MCH) 26.3 pg 27.0-31.0 [facility] OxqpmxjFOVAAMRJOO7939-69-33 21:09:0030.7[facility]annHEMATOLOGY 2015-04-17 21:09:000.1[facility] KowdhrzBVANGPZXHW9989-99-13 21:09:000.6[facility] MfylulyTTKOBOITPM0092-23-43 21:09:002.0[facility] ZnveslvQVURRLPHFD5156-88-04 21:09:009.1[facility] DvcasvbRYIXISODDX7388-36-21 21:09:0018.8[facility] [place] JDJACYBEJB1455-01-59 21:09:0069.5[facility] UxqbptcDGDGMPINCU8077-27-66 21:09:00 4.6[facility] FcrxucqWGYHOJNIVX8780-96-10 21:09:001.3[facility]annHEMATOLOGY 2015-04-17 21:09:000.6[facility] HermannCHEM KVFJR6113-69-32 07:42:56131Ogwyztaq HermannCHEM LXIUN5771-84-38 07:42:000.59[facility] HermannCHEM ZFMRH9173-83-51 07:42:005[facility] HermannCHEM UCSDD2326-54-44 07:42:23879Yspfrgxi HermannCHEM GQHPC5036-77-31 07:42:69981Upwgqyro HermannCHEM JEYLU8010-23-05 07:42:003.7 [facility] HermannCHEM DCUHE9039-37-03 07:42:0011.7[facility] HermannCHEM PANEL 2015-04-16 07:42:59398Jlzkxgfc HermannCHEM BQBXZ5268-97-59 07:42:0024[facility] HermannCHEM EUTAL2228-61-16 07:42:007.8[facility] ZrwyvysZCIAUMVTUJ7761-73-87 07:42:000.1[facility] RilsvcpKEIYVZQKPO3287-03-65 07:42:000.8[facility] TPUMMSNQWE8238-60-21 07:42:0019.0[facility] RsacxeeMLCYGTKJHR0942-26-42 07:42:00 64.emorial KhbmtsaMAVBDMATWZ0129-33-45 07:42:000.2[facility]annHEMATOLOGY 2015-04-16 07:42:002.0[facility] OfyrkbfJNOANUQYQH6573-21-03 07:42:0014.2[facility] CtcscssYOZSMCBNLM0628-67-73 07:42:001.1[facility] HywrqecEFKNCTOEZD7233-07-57 07:42:003.emorial XsfdcbcWOEUJUMUMZ2882-22-06 07:42:0025.2[facility] PIXGIEJSMA2489-27-10 07:42:0018.2[facility] JduqjkkQDYILWRCQF9586-87-66 07:42:00 32.1[facility] WnmzgzhPHOSXEIGKU5477-30-24 07:42:00 Test Item Value Reference Range Interpretation Comments MCH (test code = MCH) 27.6 pg 27.0-31.0 [facility] JgxctpeEWYOEESYGR5458-69-76 07:42:0086.0[facility]annHEMATOLOGY 2015-04-16 07:42:0091[facility] RgdopfcXKZAWWCAIQ5102-84-79 07:42:009.3[facility] QfdfvkoVAZNELNJJH6355-62-90 07:42:008.1[facility] DssmmpfEDMFOMHWAT4830-09-56 07:42:002.93[facility] IvymkscANTEKRAPKM9441-18-61 07:42:005.5[facility] [place] CGUCPUJKDS5629-48-02 17:43:0022.7[facility] GtbrmhxGTFCCJZUDS4002-05-02 17:43:00 6.7[facility]annBLOOD BANK TLISVCG9484-19-55 12:43:00Product available (04/15/15 6:43 AM)[facility]annBL[facility]OD BANK REOJRFD2252-01-10 12:30:00Product available (04/15/15 6:30 AM)[facility] FuztwoaFCAFAIASJAMO6262-50-49 12:06:0011.8 [facility] VbpvcgoVKSMKDMGRHHT4960-88-17 12:06:41107Thwbmsda HermannELECTROLYTES 2015-04-15 12:06:008.1[facility] UwoedsyIVNOBGGFBTKJ2280-37-00 12:06:0023[facility] DgvplfhJHCBWOMTPYVF0381-20-82 12:06:21390Hhwzavyg NzqwaueOQANSQGTBGGU6149-62-19 12:06:06582Sorgitck UwnlnslGACCPHHIJSUR1328-83-14 12:06:004[facility] BYYMFSOQVWXV6616-35-22 12:06:003.8[facility] LnmrmkjPLKNGLMFQLYW2643-98-55 12:06:15457Lstyhkbj QknynbvUSSUKTNRVEOE4330-07-63 12:06:000.47[facility] [place] BVVJSVEACW7095-86-11 12:06:14879Nipjqkjg GcumxvaPXYYXXALLC4983-17-01 12:06:009.0 [facility] VzuwntvVOOFVIWCCU1137-16-98 12:06:0018.5[facility]annHEMATOLOGY 2015-04-15 12:06:0029.5[facility] IwfhaglIQBDXNHJMC2220-93-64 12:06:00 Test Item Value Reference Range Interpretation Comments MCH (test code = MCH) 24.3 pg 27.0-31.0 [facility] QlmordmLZQIMECBJR4601-61-29 12:06:0082.2[facility]annHEMATOLOGY 2015-04-15 12:06:002.82[facility] LpivcqnXKGUYUJAZB8236-36-84 12:06:005.7[facility] ZdtlzmoEBLEHBJNOI9706-06-36 12:06:0079.3[facility] IgwgjsmGDMCFPTPKA9967-51-56 12:06:001.1[facility] SzxvfasCOEPPTXEQY1741-34-79 12:06:008.2[facility] [place] YCIOREWCPT2221-83-41 12:06:0011.1[facility] LmkgfgsJJJIVFRFJX0300-50-03 12:06:00 0.3[facility] NaczbydBOULAPWZEO1461-03-85 12:06:000.6[facility]annHEMATOLOGY 2015-04-15 12:06:004.5[facility] OlbtdyyMEHKYQGGOR8462-02-31 12:06:000.1[facility] FkabhdnECNWUWGZRN8853-48-50 12:06:000.5[facility]annBLOOD BANK RESULTS 2015-04-15 07:25:00Product available (04/15/15 1:25 AM)[facility]annURINE LVHT2931-82-53 04:01:00Negative (04/14/15 10:01 PM)[facility] HermannENDOCRINOLOGY 2015-04-15 03:42:00<1[facility] PojmncjWMTLPWFRON2385-08-27 03:42:001.09 [facility] IfutdkbDAIJEIIHKK8581-85-85 03:42:00 Test Item Value Reference Range Interpretation Comments PT (test code = PT) 14.4 s 12.0-14.7 [facility] HermannBLOOD BANK LCQYKGC6880-78-35 23:37:00Negative (04/14/15 5:37 PM) [facility] CrobscpCITMHHHUYYQT9248-95-80 23:32:008.6[facility] HermannELECTROLYTES 2015-04-14 23:32:48719Rqdcasuq GiulcvfKCECKJVHXJPD9896-27-48 23:32:008.4[facility] RwcsfxgALKGRVRWBBUD8839-87-26 23:32:0026[facility] MrhkrywEDCUUCJEKCQR4088-80-69 23:32:63065Rtwcukfm NxursrfDDBIOSIEBYSP4527-92-35 23:32:003.6[facility] TZKKBNADLPOH5992-78-71 23:32:60386Xdeitbmf NhpkdzpNJBVGMDGNOHX1515-61-82 23:32:000.56[facility] ChlprrhYMIOZAJALTQH5435-00-31 23:32:008[facility] [place] UDAAOQUCTFZW4890-28-44 23:32:0099[facility] GbqofjdJEAKTUKFZV6473-42-85 23:32:00 0.0[facility]BsxynsmYGFELIEFTG1627-79-72 23:32:00 Test Item Value Reference Range Interpretation Comments K-time (test code = K-time) 4.1 min 0.6-2.3 [facility] CenterSqclilkZXBFSHQLTH2678-55-72 23:32:00Citrated Whole Blood (04/14/15 5:32 PM)[facility]NxaudjeGBVHUALONJ0694-70-89 23:32:00 Test Item Value Reference Range Interpretation Comments ACT (TEG) (test code = ACT (TEG)) 97 s 86-118 [facility] CenterIegjxqiGODPVFYOFY2728-81-04 23:32:00 Test Item Value Reference Range Interpretation Comments Angle (test code = Angle) 74 degrees 64-80 [facility] CampusWqhjvexCAIQXAJTGC3903-05-80 23:32:00 Test Item Value Reference Range Interpretation Comments Split Point (test code = Split Point) 0.3 min [facility] CampusLtbsqdeHBKMKWEWVS0628-95-21 23:32:00 Test Item Value Reference Range Interpretation Comments R-time (test code = R-time) 0.5 min 0.4-0.7 [facility] HospitalLgfulvoTXLLAXDWPQ9512-21-08 23:32:00 Test Item Value Reference Range Interpretation Comments Max Amp (test code = Max Amp) 33 mm 52-71 [facility] CampusQwuzyvfCXVMQJHIWD5541-44-00 23:32:002.4[facility]annHEMATOLOGY 2012-09-01 09:09:000.6[facility] LjtnytoIVFOWVFUCE2185-78-43 09:09:000.5[facility] OolyltfMXBHNMSQLT2961-88-21 09:09:001.2[facility] LacqlboQNGTZXFAAK8256-21-56 09:09:000.5[facility] MpfnqhtTWDGVNUJTI0423-46-64 09:09:0063.7[facility] [place] EWMTFGEWTN8727-97-17 09:09:004.0[facility] BilridvDEUCBHPFTB3600-28-63 09:09:00 19.3[facility] KgplwrbVDWDKXIGCN1219-99-70 09:09:009.2[facility]annHEMATOLOGY 2012-09-01 09:09:007.3[facility] BubtncpPWFESPBEQB4494-09-22 09:09:006.3[facility] FxenxjyFWVFPKQZIE9872-71-92 09:09:003.31[facility] NygwzqxSOPAUMDTKZ9616-28-15 09:09:008.3[facility] UfdqglgJZHVECTTJN5744-56-40 09:09:009.5[facility] LZYPPZASRZ7176-02-09 09:09:0086[facility] LdbrgyeDJBKJOCBYE3284-02-99 09:09:0017.4 [facility] MfrklbpKZQEMMKXSD1500-30-27 09:09:0031.3[facility] HermannHEMATOLOGY 2012-09-01 09:09:0026.4[facility] YjllwhmROYXGCMBWY6755-72-67 09:09:00 Test Item Value Reference Range Interpretation Comments MCH (test code = MCH) 25.0 pg 27.0-31.0 L [facility] YkexzvnIDTABNOCYO1313-02-86 09:09:0079.9[facility]annBL[facility]OD BANK XUKKZBT7814-65-92 14:31:00Product available (08/31/2012 09:31:00)[facility] CyzkbcaMKHMDBDRA6150-70-00 07:20:003.7[facility] JttgzwmXCYTDGSOI7892-72-86 07:20:001.6[facility] XtehudkIBVDANWMS9400-66-58 07:20:0013.8[facility] [place] PMPQERNYJ6515-66-96 07:20:26323Wbftewej JuypuuaDNQJVAXHN2024-89-75 07:20:30159 [facility] IcjbdjiVGGSUHIGB0328-51-54 07:20:000.6[facility] HermannCHEMISTRY 2012-08-31 07:20:98768Zgqleyhm MnypbomYEAXEDVAM0846-88-58 07:20:003.8[facility] DpfdaeqAMLECPZZJ6185-64-40 07:20:003[facility] YifzosnFTAQYYFZP3248-56-72 07:20:00 140[facility] OuhduiaZUAQUNEEC4062-47-27 07:20:008.7[facility] HermannCHEMISTRY 2012-08-31 07:20:0025[facility] JqglrcuXWCHIKOEZV4185-60-10 07:20:0021.8[facility] TgcuzabDJBFOYBDYT7187-61-30 07:20:006.6[facility] FeopzpdRKZNNLIANW1722-30-88 07:20:0080.1[facility] IwocfvcXRWWNUWRWZ4124-58-30 07:20:00 Test Item Value Reference Range Interpretation Comments MCH (test code = MCH) 24.3 pg 27.0-31.0 L [facility] AnatrszTEAYIQLNTT4786-81-13 07:20:002.72[facility] HermannHEMATOLOGY 2012-08-31 07:20:006.5[facility] VfttppfGKSNMBTBTB2288-53-46 07:20:0030.3[facility] DzqjeaxIURWBNADMU2638-62-62 07:20:0018.2[facility] KhjpqipEEQUUXYYWP0543-44-18 07:20:009.4[facility] ThpkljrPDPOEBJSDY4911-86-47 07:20:0084[facility] [place] ORMLBTXDLM8208-60-29 07:20:003.1[facility] WaekgodBMGPYLJAYB2386-51-75 07:20:00 14.6[facility] FwpytgxXHHVHPJEMA0760-25-89 07:20:007.2[facility] HermannHEMATOLOGY 2012-08-31 07:20:004.9[facility] ZgrakwcQXSKMXCNDJ6884-86-14 07:20:000.3[facility] VyvlndyWGXCXPGSHE2123-62-92 07:20:000.2[facility] CiykmqnZYRFRMRTFP3381-02-98 07:20:000.5[facility] UpqrxrhJJINZRHUPP5819-99-97 07:20:000.9[facility] ZDWOVQTSDZ8095-46-05 07:20:0074.8[facility] DwfbdllLVJJYEYUXU1636-71-10 01:01:31 2.72[facility] OmvjlgfNFGEUSMGMS9589-39-97 01:01:318.8[facility] 2012-08-31 01:01:31 Test Item Value Reference Range Interpretation Comments MCH (test code = MCH) 24.6 pg 27.0-31.0 L [facility] DjjthnjBPIWIEBHHI7884-13-38 01:01:3122.3[facility]annHEMATOLOGY 2012-08-31 01:01:3182.0[facility] KifxtkzWAQXRWBDWE8061-07-30 01:01:319.9[facility] CnwuussJHXUENQAYC1171-20-00 01:01:3130.0[facility] SmzlmiiUOZLDBECMU7988-74-21 01:01:3118.0[facility] FccwwkgOOEMNKAXJR6927-57-84 01:01:3185[facility] MBDWIWGNXU7828-71-22 01:01:316.7[facility] GvypqfvVPMUVJESNP2862-39-62 01:01:317.3 [facility] JdasihbMMOSCGVCFP2561-62-15 01:01:310.2[facility]annHEMATOLOGY 2012-08-31 01:01:310.6[facility] OzgvqylJSYJDXYCWY0505-83-01 01:01:310.1[facility] PfvhutbVCYVUQLNCA6854-36-15 01:01:310.8[facility] IwrujsjZATKGQNDZY3523-04-60 01:01:317.0[facility] YahhgteUAZXOMHBOF9103-37-83 01:01:318.9[facility] AHMDCJNBVZ4046-66-48 01:01:311.3[facility] SpezvcnAAFIXIJCDG4566-59-05 01:01:31 82.6[facility] YxxqfmnUTQNPWSIQV7099-76-22 09:58:47493Jabvkapi HermannHEMATOLOGY 2012-08-30 09:58:00 Test Item Value Reference Range Interpretation Comments PTT (test code = PTT) 27.4 s 22.9-35.8 N [facility] QsqfzzfXWKKBLSZXC6883-46-91 09:58:001.11[facility] 2012-08-30 09:58:00 Test Item Value Reference Range Interpretation Comments PT (test code = PT) 14.5 s 12.0-14.7 N [facility] TYQYVFZ6141-40-90 05:00:00Product available (08/30/2012 00:00:00)[facility] MmshdmhYMGJIJHQK4769-42-61 16:40:00Negative (08/29/2012 11:40:00)[facility] PtffdkuNPNCKGQTDG0522-78-12 16:40:00Few /LPF (08/29/2012 11:40:00)[facility] QrcnpaoELFJZBMRYE5985-83-54 16:40:00None Seen (08/29/2012 11:40:00)[facility] BfqjargZCDBBQNWYH8280-56-23 16:40:00None Seen (08/29/2012 11:40:00)[facility] EegjfedLNACCXQCDK3534-45-77 16:40:00None Seen (08/29/2012 11:40:00)[facility] VcwazmkAQYPWBRWUO2272-65-98 16:40:00None Seen (08/29/2012 11:40:00)[facility] CampusUrxfzxlQOFCMDDRUJ3581-64-05 16:40:00Negative mg/dL (08/29/2012 11:40:00)[facility] CampusSwitpkuBUUZPKEEOO5035-64-73 16:40:00 Test Item Value Reference Range Interpretation Comments UA Spec Grav (test code = UA Spec 1.010 1 N Grav) [facility] LwpxdvqATYMAJHJUQ3915-88-81 16:40:00Negative mg/dL (08/29/2012 11:40:00)[facility] BbdjmnyXXOMYZDJEZ4642-43-22 16:40:000.2[facility] MWYFLNNOFM1561-90-87 16:40:00Negative mg/dL *NA*(08/29/2012 11:40:00)[facility] PapbehxHBLHFJCZRZ5589-78-85 16:40:00Negative *NA*(08/29/2012 11:40:00)[facility] CenterYjbaitgJIWYVDFPZZ9955-40-16 16:40:00Negative (08/29/2012 11:40:00)[facility]zdxjsoWPGILEJLUI1776-09-59 16:40:00Negative (08/29/2012 11:40:00)[facility]aleVenapwvJLDWHSIRTA9008-92-07 16:40:00Negative (08/29/2012 11:40:00)[facility]aleSdwpntzOILZPUYGFH9111-81-31 16:40:00 Test Item Value Reference Range Interpretation Comments UA pH (test code = UA pH) 6.0 1 5.0-8.0 N [facility]aleHiylvzbFYZULPMYQJ6973-76-92 16:40:00Clear (08/29/2012 11:40:00)[facility]aleDzwbwpcKFTDBGZIHL4373-89-87 16:40:00Yellow *NA*(08/29/2012 11:40:00)[facility]fc[facility]ibwXRWJMFRYDV6097-94-94 15:51:00 Test Item Value Reference Range Interpretation Comments Max Amp (test code = Max Amp) 34 mm 52-71 L [facility] CenterRulfjkoWGPDIEVBGB9900-94-20 15:51:002.6[facility] 2012-[facility]29 15:51:000.0[facility] LtgwruuBAWMNHYRQJ8636-85-96 15:51:00 Test Item Value Reference Range Interpretation Comments ACT (TEG) (test code = ACT (TEG)) 105 s 86-118 N [facility] CenterYtkfkpyGVOIFPCQJF9422-01-41 15:51:00 Test Item Value Reference Range Interpretation Comments Split Point (test code = Split Point) 0.4 min [facility] CampusHfdtgwfMNXJJCIPLW3484-77-90 15:51:00 Test Item Value Reference Range Interpretation Comments Angle (test code = Angle) 53 degrees 64-80 L [facility] CenterOqmobbvXUZDIFYPIN4591-54-81 15:51:00 Test Item Value Reference Range Interpretation Comments R-time (test code = R-time) 0.6 min 0.4-0.7 N [facility] CampusWjyxlvrEZWAMWKHJT1260-67-78 15:51:00 Test Item Value Reference Range Interpretation Comments K-time (test code = K-time) 6.6 min 0.6-2.3 H [facility] LSQUDNV5083-00-54 15:50:00Negative (08/29/2012 10:50:00)[facility] OahymyvLDHNFWQJY3477-03-78 15:50:003.4[facility] JTEBHFIQD6588-40-16 15:50:000.0[facility] NbctdatWNQFRUXKA5877-84-32 15:50:000.9 [facility] VjpnkbuJXSVQRUND4947-41-50 15:50:006.5[facility] HermannCHEMISTRY 2012-08-29 15:50:003.1[facility] FcsodxiCBSMRDUUW1800-26-40 15:50:0061[facility] KmhdljmONKMMCFRQ7057-30-22 15:50:000.1[facility] JejwxuoCAZLRZYKZ9695-47-77 15:50:0021[facility] VsucmfaYCCREXLQI1986-32-63 15:50:0024[facility] [place] KFYSJWXOF0046-46-69 15:50:000.1[facility] OieukhqRDXGEXRFF6228-66-79 15:50:0017.2 [facility] DdgtqepYLHOUEGHO3969-45-69 15:50:65854Wxcowyfm HermannCHEMISTRY 2012-08-29 15:50:0023[facility] JdyxtwlDLUCEHEAM3524-99-47 15:50:007.9[facility] KvoggtuUNEBUKGTC3123-58-96 15:50:004[facility] TrfuzhjWNHVQUONE0864-03-96 15:50:00 90[facility] RrirlzoCJWKIHFFP8908-28-87 15:50:004.2[facility] HermannCHEMISTRY 2012-08-29 15:50:27461Vmvogdcy MqawooxNSJIRLDUW5210-97-07 15:50:000.5[facility] XkeqvyyCSNLSKHDS4583-60-93 15:50:28669Wknrbioo MkppwnwMPMZJTTPJD3737-31-39 15:50:000.0[facility] CrbgphhJSUDNQPCEE0097-27-59 15:50:000.0[facility] [place] VASZDPXWDY4623-96-75 15:50:00Normal (08/29/2012 10:50:00)[facility] [id number] 15:50:001+ *ABN*(08/29/2012 10:50:00)[facility]2013-05-15 15:50:00Slight (08/29/2012 10:50:00)[facility]2013-05-15 15:50:00Slight (08/29/2012 10:50:00)[facility]
[2020-06-14] MEDS ORDERED: LIDOCAINE 1% MPF 5 ML VIAL ONE (17:30)
[2020-06-14] MEDS ORDERED: TETANUS & DIPHTHERIA TOX,ADULT 0.5 ML VIAL ONE (17:31)
[2020-06-14] MEDS ORDERED: HYDROCODONE/APAP 10/325 TAB ONE (17:31)
--- NOTE | 2020-06-14 19:04 | ER ---
Nurse's Notes [facility] Name: Bri Boyd Age: 34 yrs Sex: Female : 1985 Arrival Date: 06/14/2020 Time: 15:52 Bed 18 Private MD: Diagnosis: Cutaneous abscess of left upper limb Presentation: 06/14 15:54 Chief complaint: Patient states: abscess to the left forearm x 5 days. Coronavirus sv screen: Client denies travel out of the [place] in the last 14 days. At this time, the client does not indicate any symptoms associated with coronavirus-19. Ebola Screen: No symptoms or risks identified at this time. Risk Assessment: Do you want to hurt yourself or someone else? Patient reports no desire to harm self or others. Onset of symptoms was June 08, 2020. 15:54 Method Of Arrival: Ambulatory sv 15:54 Acuity: KARIE 3 sv 15:56 Initial Sepsis Screen: Does the patient meet any 2 criteria? No. Patient's initial sv sepsis screen is negative. Does the patient have a suspected source of infection? No. Patient's initial sepsis screen is negative. 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 - Social history:: Smoking status: Patient denies any tobacco usage or history of. Screenin:32 Abuse screen: Denies threats or abuse. Denies injuries from another. Nutritional hb screening: No deficits noted. Tuberculosis screening: No symptoms or risk factors identified. Fall Risk None identified. Assessment: 17:15 General: Appears in no apparent distress. Behavior is calm, cooperative. Pain: Pain hb currently is 6 out of 10 on a pain scale. Neuro: Level of Consciousness is awake, alert, obeys commands, Oriented to person, place, time, situation. Cardiovascular: Capillary refill < 3 seconds Patient's skin is warm and dry. Respiratory: Respiratory effort is even, unlabored, Respiratory pattern is regular, symmetrical. GI: No signs and/or symptoms were reported involving the gastrointestinal system. : No signs and/or symptoms were reported regarding the genitourinary system. EENT: No signs and/or symptoms were reported regarding the EENT system. Derm: Wound noted dorsal aspect of left forearm Wound is unstageable. Musculoskeletal: No signs and/or symptoms reported regarding the musculoskeletal system. 18:30 Reassessment: Patient appears in no apparent distress at this time. Patient and/or hb family updated on plan of care and expected duration. Pain level reassessed. Patient is alert, oriented x 3, equal unlabored respirations, skin warm/dry/pink. 19:14 Reassessment: Patient appears in no apparent distress at this time. Patient and/or jb4 family updated on plan of care and expected duration. Pain level reassessed. Patient is alert, oriented x 3, equal unlabored respirations, skin warm/dry/pink. Vital Signs: 15:56 BP 120 / 79; Pulse 85; Resp 18; Temp 98.9(O); Pulse Ox 99% ; Weight 71.67 kg; Height 5 sv ft. 6 in. (167.64 cm); 18:15 BP 124 / 72; Pulse 80; Resp 15; Pulse Ox 100% on R/A; hb 15:56 Body Mass Index 25.50 (71.67 kg, 167.64 cm) sv ED Course: 15:52 Patient arrived in ED. ds1 15:54 Arm band placed on. sv 15:55 Triage completed. sv 16:56 Preet Adair NP is PHCP. pm1 16:56 Gm Strong MD is Attending Physician. pm1 17:04 Nayeli Hernandez, MCKENZIE is Primary Nurse. hb 18:25 Assist provider with I \T\ D: of an abscess on left forearm Set up I\T\D tray. Performed by lynda Adair NP Wound packed. iodoform gauze, Dressing with 4X4s, Patient tolerated well. 18:48 Patient did not have IV access during this emergency room visit. hb 19:14 Patient has correct armband on for positive identification. Side rails up X 1. Pulse ox jb4 on. NIBP on. 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 Exp: 06/06/2022. Lot #: [id number]. } Route: IM; Site: right deltoid; 18:49 Follow up: Response: No adverse reaction hb 17:22 Drug: [place] 10 mg-325 mg 1 tabs Route: PO; hb 18:04 Follow up: Response: No adverse reaction hb 18:15 Follow up: Response: No adverse reaction hb 18:13 Drug: Lidocaine (1 %) 5 ml Volume: 5 ml; Route: Infiltration; hb 18:49 Follow up: Response: No adverse reaction hb Outcome: 19:03 Discharge ordered by MD. pm1 19:14 Discharged to home ambulatory. jb4 19:14 Condition: stable 19:14 Discharge instructions given to patient, Instructed on discharge instructions, follow up and referral plans. medication usage, Demonstrated understanding of instructions, follow-up care, medications, Prescriptions given X 2. 19:16 Patient left the ED. jb4 Signatures: Rossy Mcgovern, RN RN Maryellen Katz ds1 Preet Adair, GARRICK FELT CEMENTER pm1 Nayeli Hernandez RN RN Chacorta Guillen RN RN jb4 Corrections: (The following items were deleted from the chart) 15:58 15:56 Pulse 85bpm; Resp 18bpm; Pulse Ox 99%; Temp 98.9F Oral; 71.67 kg; Height 5 ft. 6 sv in.; BMI: 25.5; sv
--- NOTE | 2020-06-14 19:04 | EDPHYS ---
Physician Documentation [facility] Name: Bri Boyd Age: 34 yrs Sex: Female : 1985 Arrival Date: 06/14/2020 Time: 15:52 Bed 18 Private MD: ED Physician Gm Strong HPI: 06/14 19:02 This 34 yrs old Female presents to ER via Ambulatory with complaints of pm1 Abscess. 19:02 The patient presents with an abscess of the palmar aspect of left forearm. Description: pm1 raised, tense. Onset: The symptoms/episode began/occurred 5 day(s) ago. Possible cause(s): unknown. Associated signs and symptoms: Pertinent negatives: discharge, drainage, fever. Modifying factors: the symptoms are alleviated by nothing, the symptoms are aggravated by touching. Severity of symptoms: in the emergency department the symptoms are actually worse. The patient has not experienced similar symptoms in the past. The patient has not recently seen a physician. 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 - Social history:: Smoking status: Patient denies any tobacco usage or history of. ROS: 19:02 Constitutional: Negative for fever, chills, and weight loss. pm1 19:02 Cardiovascular: Negative for chest pain, palpitations, and edema, Respiratory: Negative for shortness of breath, cough, wheezing, and pleuritic chest pain, MS/Extremity: Negative for injury and deformity. 19:02 Neuro: Negative for headache, weakness, numbness, tingling, and seizure. 19:02 Skin: Positive for abscess, of the palmar aspect of left forearm. Exam: 19:02 Constitutional: This is a well developed, well nourished patient who is awake, alert, pm1 and in no acute distress. Head/Face: Normocephalic, atraumatic. 19:02 MS/ Extremity: Pulses equal, no cyanosis. Neurovascular intact. Full, normal range of motion. 19:02 Cardiovascular: Exam negative for acute changes, Rate: normal, Rhythm: regular, Pulses: no pulse deficits are appreciated. 19:02 Respiratory: Exam negative for acute changes, respiratory distress, shortness of breath. 19:02 Skin: Appearance: normal except for affected area, abscess, that is moderate sized, approximately 2 cm(s), with fluctuance, no surrounding cellulitis. Vital Signs: 15:56 BP 120 / 79; Pulse 85; Resp 18; Temp 98.9(O); Pulse Ox 99% ; Weight 71.67 kg; Height 5 sv ft. 6 in. (167.64 cm); 18:15 BP 124 / 72; Pulse 80; Resp 15; Pulse Ox 100% on R/A; hb 15:56 Body Mass Index 25.50 (71.67 kg, 167.64 cm) sv Procedures: 19:02 I \T\ D: Incision and drainage was performed for an abscess of the left palmar aspect of pm1 left forearm Prepped with Betadine, Anesthetized with 5 ml's 1% Lidocaine. Incised with #11 blade. Drained moderate amount purulent fluid. Abscess cavity explored. Packed with iodoform gauze, the patient tolerated the procedure well. MDM: 16:56 Patient medically screened. pm1 19:02 Data reviewed: vital signs. Counseling: I had a detailed discussion with the patient pm1 and/or guardian regarding: the historical points, exam findings, and any diagnostic results supporting the discharge/admit diagnosis, the need for outpatient follow up, for definitive care, a general surgeon, to return to the emergency department if symptoms worsen or persist or if there are any questions or concerns that arise at home. 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 Exp: hb 06/06/2022. Lot #: [id number]. } Route: IM; Site: right deltoid; 18:49 Follow up: Response: No adverse reaction hb 17:22 Drug: [place] 10 mg-325 mg 1 tabs Route: PO; hb 18:04 Follow up: Response: No adverse reaction hb 18:15 Follow up: Response: No adverse reaction hb 18:13 Drug: Lidocaine (1 %) 5 ml Volume: 5 ml; Route: Infiltration; hb 18:49 Follow up: Response: No adverse reaction hb Disposition: 06/15 06:25 Co-signature as Attending Physician, Gm Strong MD I agree with the assessment and santana plan of care. Disposition: 06/14/20 19:03 Discharged to Home. Impression: Cutaneous abscess of left upper limb. - Condition is Stable. - Discharge Instructions: Skin Abscess, Incision and Drainage. - Prescriptions for Tylenol- Codeine #3 300-30 mg Oral Tablet - take 2 tablets by ORAL route every 4-6 hours As needed; 20 tablet. Bactrim DS 800- 160 mg Oral Tablet - take 1 tablet by ORAL route every 12 hours for 10 days; 20 tablet. - Medication Reconciliation Form, Thank You Letter, Antibiotic Education, Prescription Opioid Use form. - Follow up: Emergency Department; When: As needed; Reason: Worsening of condition. Follow up: Private Physician; When: 2 - 3 days; Reason: Recheck today's complaints, Continuance of care, Re-evaluation by your physician. - Problem is new. - Symptoms have improved. Signatures: Rossy Mcgovern, RN Gm Keller MD MD [facility] Preet Adair, AQUATIC PERFORMER AQUATIC PERFORMER pm1 Nayeli Hernandez RN RN Chacorta Guillen RN RN jb4 Corrections: (The following items were deleted from the chart) 06/14 19:16 19:03 06/14/2020 19:03 Discharged to Home. Impression: Cutaneous abscess of left upper jb4 limb. Condition is Stable. Forms are Medication Reconciliation Form, Thank You Letter, Antibiotic Education, Prescription Opioid Use. Follow up: Emergency Department; When: As needed; Reason: Worsening of condition. Follow up: Private Physician; When: 2 - 3 days; Reason: Recheck today's complaints, Continuance of care, Re-evaluation by your physician. Problem is new. Symptoms have improved. pm1
== END 2020-06-14 19:16 | disposition home or self-care (01) ==
LOC: ER 15:50
PROC: 0J9H0ZZ Drainage of Left Lower Arm Subcutaneous Tissue and Fascia, Open Approach (ICD-10-PCS; principal; 2020-06-14)
DX: L02.414 Cutaneous abscess of left upper limb (principal); Z23 Encounter for immunization; Z88.6 Allergy status to analgesic agent; Z88.8 Allergy status to other drugs, medicaments and biological substances; Z91.048 Other nonmedicinal substance allergy status
CPT/HCPCS: 90471; 90714; 99284

== ENCOUNTER 2020-09-25 20:49 | Emergency (ER) | payer SELFPAY ==
[2020-09-25 23:44] LABS: Urine Blood 2+ (Negative); Urine Glucose Negative (Negative); Urine Protein Negative (Negative); Urine Specific Gravity 1.025 (1.005-1.030); Urine pH 6.5 (5.0-7.0)
[2020-09-25 23:51] LABS: Urine Specific Gravity/Preg 1.025 (1.005-1.030)
[2020-09-26 00:06] LABS: Absolute Lymphocytes (CBC) 1.5 K/uL (0.7-4.9); Basophils % 0.6 % (0-1.3); Hematocrit 24.8 % (36.0-45.0); Lymphocytes % 16.7 % (15.3-44.8); MPV 8.9 fL (7.6-11.3); RBC Red Blood Cell Count 3.03 M/uL (3.86-4.86)
[2020-09-26 00:13] LABS: BUN Blood Urea Nitrogen 7 mg/dL (7-18); Bicarbonate 28 mmol/L (21-32); Glucose Level 86 mg/dL (74-106); Potassium 3.9 mmol/L (3.5-5.1); Sodium Level 137 mmol/L (136-145)
[2020-09-26] MEDS ORDERED: NA CHLORIDE 0.9% 1,000 ML ONE (00:15)
[2020-09-26] MEDS ORDERED: MORPHINE 2 MG/ML SYR ONE ×2 (00:15→01:00)
[2020-09-26] MEDS ORDERED: CLINDAMYCIN 600MG/D5W 0 MG/0 ML BAG IV ONE (00:15)
[2020-09-26] MEDS ORDERED: CLINDAMYCIN 900MG/D5W 900 MG/50 ML IVPB IV ONE (00:20)
[2020-09-26] MEDS ORDERED: LIDOCAINE 1% W/EPI 1:100,000 MDV 20 ML VIAL ONE (00:25)
[2020-09-26] MEDS ORDERED: BUPIVACAINE 0.5% PF 10 ML VIAL ONE (00:25)
[2020-09-26 00:45] LABS: Anisocytosis 2+; Blood Morphology Comment NOTED (NOT SEEN); Hypochromasia 2+; Macrocytosis 1+; Platelet Estimate ADEQ; Teardrop Cell 1+; White Blood Cell Scan OK (OK)
--- NOTE | 2020-09-26 01:04 | EDPHYS ---
Physician Documentation [facility] Name: Bri Boyd Age: 35 yrs Sex: Female : 1985 Arrival Date: 09/25/2020 Time: 21:04 Bed 13 Private MD: ED Physician Blake Tang HPI: 09/25 23:50 This 35 yrs old Female presents to ER via Ambulatory with complaints of Boil. cp 23:50 The patient presents with an abscess of the left lateral upper chest. cp 23:50 Description: draining, erythematous, fluctuant. Onset: The symptoms/episode cp began/occurred 4 day(s) ago. Possible cause(s): shaved area with razor. Associated signs and symptoms: Pertinent negatives: fever. 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 - Social history:: Smoking status: Reported history of juuling and/or vaping. ROS: 23:55 Constitutional: Negative for body aches, chills, fever. cp 23:55 Respiratory: Negative for cough, shortness of breath, wheezing. 23:55 Abdomen/GI: Negative for abdominal pain, nausea, vomiting, and diarrhea. 23:55 Skin: Positive for abscess, erythema, of the left lateral upper chest wall. 23:55 All other systems are negative. Exam: 23:58 Constitutional: The patient appears in no acute distress, alert, awake, non-toxic, well cp developed, well nourished, uncomfortable. 23:58 Head/Face: Normocephalic, atraumatic. cp 23:58 Eyes: Periorbital structures: appear normal, Conjunctiva: normal, Sclera: no appreciated abnormality, Lids and lashes: appear normal, bilaterally. 23:58 Chest/axilla: Inspection: abscess, that is moderate-sized, of the left lateral upper chest mild surrounding erythema, Palpation: tenderness, that is severe, of the left lateral upper chest. 23:58 Cardiovascular: Rate: normal, Rhythm: regular. 23:58 Respiratory: the patient does not display signs of respiratory distress, Respirations: normal, no use of accessory muscles, no retractions, labored breathing, is not present, Breath sounds: are clear throughout, no decreased breath sounds, no stridor, no wheezing. 23:58 Abdomen/GI: Inspection: abdomen appears normal, Palpation: abdomen is soft and non-tender, in all quadrants. 23:58 Neuro: Orientation: to person, place \T\ time. Mentation: is normal. Vital Signs: 21:08 BP 117 / 78; Pulse 78; Resp 16; Temp 98.7; Pulse Ox 100% ; Weight 76.2 kg; Height 5 ft. vg1 6 in. (167.64 cm); Pain 10/10; 09/26 01:00 BP 114 / 80; Pulse 76; Resp 18; Pulse Ox 98% on R/A; wh 09/25 21:08 Body Mass Index 27.12 (76.20 kg, 167.64 cm) vg1 Procedures: 01:30 I \T\ D: Incision and drainage was performed for an abscess of the left lateral upper cp chest Prepped with Betadine, Anesthetized with 6 ccs mixture 1% lidocaine with epi and 0.5% marcaine. Incised with #11 blade. Drained moderate amount purulent fluid. bloody fluid. Cultures obtained. Packed with iodoform gauze, Dressing: sterile 4x4 gauze, the patient tolerated the procedure well. MDM: 09/25 23:11 Patient medically screened. cp 09/26 00:00 Differential diagnosis: abscess, cellulitis, insect bite, sepsis, MRSA. cp 01:02 Data reviewed: vital signs, nurses notes, lab test result(s). cp 01:02 Counseling: I had a detailed discussion with the patient and/or guardian regarding: the historical points, exam findings, and any diagnostic results supporting the discharge/admit diagnosis, lab results, the need for outpatient follow up, a family practitioner, to return to the emergency department if symptoms worsen or persist or if there are any questions or concerns that arise at home. Response to treatment: the patient's symptoms have markedly improved after treatment, VSS. Review of [place] prescription monitor program website shows patient receives monthly RX for Hydrocodone 10 mg, and as a result, I will discharge patient. 09/25 23:28 Order name: Wound Culture 09/25 23:28 Order name: CBC with Diff; Complete Time: 01:02 cp 09/26 01:02 Interpretation: Normal except: RBC 3.03; HGB 7.6; HCT 24.8; MCV 81.8; MCH 25.1; MCHC cp 30.6; PLT 131; RDW 21.8; KENYA% 74.3. 09/25 23:28 Order name: BMP; Complete Time: 01:02 09/25 23:43 Order name: Urine Dipstick-Ancillary; Complete Time: 01:02 EDMS 09/25 23:47 Order name: Urine --Ancillary (enter results); Complete Time: 01:02 mw2 09/26 00:10 Order name: CBC Smear Scan; Complete Time: 01:02 EDVT 09/25 23:28 Order name: I\T\D Setup; Complete Time: 00:02 09/25 23:28 Order name: IV; Complete Time: 00:02 09/25 23:28 Order name: Urine Test (obtain specimen); Complete Time: 23:46 cp Administered Medications: 09/25 23:58 Drug: NS 0.9% 1000 ml Route: IV; Rate: 1 bolus; Site: right hand; 09/26 00:43 Follow up: Response: No adverse reaction; IV Status: Completed infusion 00:00 Drug: morphine 2 mg {Note: RASS 0.} Route: IVP; Site: right hand; 00:02 Drug: Clindamycin 900 mg Route: IVPB; Infused Over: 30 mins; Site: right hand; 00:43 Follow up: Response: No adverse reaction; IV Status: Completed infusion 00:42 Drug: morphine 2 mg {Note: RASS 0.} Route: IVP; Site: right hand; 00:56 Follow up: Response: No adverse reaction; Pain is decreased; RASS: Alert and Calm (0) 00:55 Drug: Lidocaine-Epinephrine -1%: (1:100,000) 10 ml {Note: Administered by provider.} wh Volume: 20 ml; Route: Infiltration; 00:55 Drug: Marcaine (bupivacaine) (0.5 %) 10 ml {Note: Administered by provider.} Volume: 10 wh ml; Route: Infiltration; 01:08 Drug: Bactrim (trimethoprim-sulfamethoxazole) (160 mg-800 mg (DS) 2 tablet Route: PO; 01:16 Follow up: Response: No adverse reaction 01:25 Drug: Demerol (meperidine) 25 mg {Note: RASS 0.} Route: IVP; Site: right hand; 01:30 Follow up: Response: No adverse reaction; Pain is decreased; RASS: Alert and Calm (0) Disposition: 01:35 Chart complete. cp Disposition: 09/26/20 01:03 Discharged to Home. Impression: Cutaneous abscess of chest wall. - Condition is Stable. - Discharge Instructions: Skin Abscess, Incision and Drainage. - Prescriptions for Clindamycin HCl 300 mg Oral Capsule - take 1 capsule by ORAL route every 6 hours for 10 days; 40 capsule. Bactrim DS 800- 160 mg Oral Tablet - take 1 tablet by ORAL route every 12 hours for 10 days; 20 tablet. - Medication Reconciliation Form, Thank You Letter, Antibiotic Education, Prescription Opioid Use form. - Follow up: Private Physician; When: 2 - 3 days; Reason: Recheck today's complaints. - Problem is new. - Symptoms have improved. Addendum: 09/27/2020 02:32 Co-signature as Attending Physician, Blake Tang MD. m Signatures: Dispatcher [employer] EDMS Gm Lopez PA PA cp Habalo, Winsy, RN MCKENZIE Lovely Baker RN RN vg1 Blake Tang MD MD [id number] Corrections: (The following items were deleted from the chart) 09/26 01:33 01:03 09/26/2020 01:03 Discharged to Home. Impression: Cutaneous abscess of chest wall. Condition is Stable. Forms are Medication Reconciliation Form, Thank You Letter, Antibiotic Education, Prescription Opioid Use. Follow up: Private Physician; When: 2 - 3 days; Reason: Recheck today's complaints. Problem is new. Symptoms have improved. cp
--- NOTE | 2020-09-26 01:04 | ER ---
Nurse's Notes [facility] Name: Bri Boyd Age: 35 yrs Sex: Female : 1985 Arrival Date: 09/25/2020 Time: 21:04 Bed 13 Private MD: Diagnosis: Cutaneous abscess of chest wall Presentation: 09/25 21:08 Chief complaint: Patient states: Shaved about 4 days ago under Left Axillary and had a vg1 pimple in the same area. Then noticed it had increased in size this morning. Coronavirus screen: Client denies travel out of the [place] in the last 14 days. Ebola Screen: Patient negative for fever greater than or equal to 101.5 degrees Fahrenheit, and additional compatible Ebola Virus Disease symptoms. Initial Sepsis Screen: Does the patient meet any 2 criteria? No. Patient's initial sepsis screen is negative. Does the patient have a suspected source of infection? No. Patient's initial sepsis screen is negative. Risk Assessment: Do you want to hurt yourself or someone else? Patient reports no desire to harm self or others. Onset of symptoms was September 21, 2020. 21:08 Method Of Arrival: Ambulatory vg1 21:08 Acuity: KARIE 4 vg1 Triage Assessment: 21:11 General: Appears in no apparent distress. comfortable, Behavior is calm, cooperative. vg1 Pain: Complains of pain in Left Axillary. 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 - Social history:: Smoking status: Reported history of juuling and/or vaping. Screenin:00 Abuse screen: Denies threats or abuse. Denies injuries from another. Nutritional wh screening: No deficits noted. Tuberculosis screening: No symptoms or risk factors identified. Fall Risk None identified. Assessment: 23:00 General: Appears in no apparent distress. uncomfortable, Behavior is calm, cooperative, wh appropriate for age. Pain: Complains of pain in left axilla. Neuro: Level of Consciousness is awake, alert, obeys commands, Oriented to person, place, time, situation, Appropriate for age. Cardiovascular: Capillary refill < 3 seconds. Respiratory: Airway is patent Respiratory effort is even, unlabored, Respiratory pattern is regular, symmetrical. GI: Abdomen is flat, non-distended. : No signs and/or symptoms were reported regarding the genitourinary system. EENT: No signs and/or symptoms were reported regarding the EENT system. Derm: Abscess located on left axilla. Musculoskeletal: Circulation, motion, and sensation intact. 09/26 00:30 Reassessment: Patient appears in no apparent distress at this time. No changes from previously documented assessment. Patient and/or family updated on plan of care and expected duration. Pain level reassessed. Patient is alert, oriented x 3, equal unlabored respirations, skin warm/dry/pink. 01:30 Reassessment: Patient appears in no apparent distress at this time. Patient and/or family updated on plan of care and expected duration. Pain level reassessed. Patient is alert, oriented x 3, equal unlabored respirations, skin warm/dry/pink. Vital Signs: 09/25 21:08 BP 117 / 78; Pulse 78; Resp 16; Temp 98.7; Pulse Ox 100% ; Weight 76.2 kg; Height 5 ft. vg1 6 in. (167.64 cm); Pain 10/10; 09/26 01:00 BP 114 / 80; Pulse 76; Resp 18; Pulse Ox 98% on R/A; 09/25 21:08 Body Mass Index 27.12 (76.20 kg, 167.64 cm) 1 ED Course: 09/25 21:04 Patient arrived in ED. as 21:10 Triage completed. vg1 21:11 Arm band placed on. vg1 22:51 Gm Lopez PA is PHCP. cp 22:51 Blake Tang MD is Attending Physician. cp 23:00 Patient has correct armband on for positive identification. Placed in gown. Bed in low wh position. Call light in reach. Side rails up X 1. Pulse ox on. NIBP on. 23:00 Inserted saline lock: 22 gauge in right hand, using aseptic technique. Blood collected. 23:28 Jaime Terrell, RN is Primary Nurse. 09/26 00:54 Assist provider with I \T\ D: of an abscess on left axilla Set up I\T\D tray. Performed by Gm BECERRIL Culture sent to lab. Wound packed. Dressing with Patient tolerated well. Agueda Griffin RN as Client Services Manager. 01:33 IV discontinued, intact, bleeding controlled, No redness/swelling at site. Administered Medications: 09/25 23:58 Drug: NS 0.9% 1000 ml Route: IV; Rate: 1 bolus; Site: right hand; 06 00:43 Follow up: Response: No adverse reaction; IV Status: Completed infusion 00:00 Drug: morphine 2 mg {Note: RASS 0.} Route: IVP; Site: right hand; 00:02 Drug: Clindamycin 900 mg Route: IVPB; Infused Over: 30 mins; Site: right hand; 00:43 Follow up: Response: No adverse reaction; IV Status: Completed infusion 00:42 Drug: morphine 2 mg {Note: RASS 0.} Route: IVP; Site: right hand; 00:56 Follow up: Response: No adverse reaction; Pain is decreased; RASS: Alert and Calm (0) 00:55 Drug: Lidocaine-Epinephrine -1%: (1:100,000) 10 ml {Note: Administered by provider.} Volume: 20 ml; Route: Infiltration; 00:55 Drug: Marcaine (bupivacaine) (0.5 %) 10 ml {Note: Administered by provider.} Volume: 10 wh ml; Route: Infiltration; 01:08 Drug: Bactrim (trimethoprim-sulfamethoxazole) (160 mg-800 mg (DS) 2 tablet Route: PO; 01:16 Follow up: Response: No adverse reaction 01:25 Drug: Demerol (meperidine) 25 mg {Note: RASS 0.} Route: IVP; Site: right hand; 01:30 Follow up: Response: No adverse reaction; Pain is decreased; RASS: Alert and Calm (0) Outcome: 01:03 Discharge ordered by . cp 01:32 Discharged to home ambulatory. 01:32 Condition: stable 01:32 Discharge instructions given to patient, Instructed on discharge instructions, follow up and referral plans. medication usage, wound care, POC Demonstrated understanding of instructions, follow-up care, medications, wound care, POC Prescriptions given X 2. 01:33 Patient left the ED. Signatures: Sondra Bauer Corey, PA PA cp Habalo, Winsy, RN RN Lovely Baker RN RN vg1
[2020-09-26] MEDS ORDERED: SMZ./TMP. 800/160 MG TABLET ONE (01:25)
[2020-09-26] MEDS ORDERED: MEPERIDINE HCL 25 MG/ML SYR ONE (01:41)
[2020-09-26 01:45] VITALS: TEMP 98.7
[2020-09-26 01:49] VITALS: BP 114/80; O2SAT 98
== END 2020-09-26 01:33 | disposition home or self-care (01) ==
LOC: ER 20:49
PROC: 0J980ZZ Drainage of Abdomen Subcutaneous Tissue and Fascia, Open Approach (ICD-10-PCS; principal; 2020-09-26)
DX: L02.213 Cutaneous abscess of chest wall (principal); Z88.6 Allergy status to analgesic agent; Z91.048 Other nonmedicinal substance allergy status
CPT/HCPCS: 36415; 80048; 81003; 81025; 85025; 87070; 87077; 87186; 87205; 96365; 96375; 99284; J2175; J2270

== ENCOUNTER 2021-02-09 12:47 | Emergency (ER) | payer SELFPAY ==
[2021-02-09] MEDS ORDERED: ONDANSETRON 4 MG/2 ML VIAL ONE (13:37)
[2021-02-09] MEDS ORDERED: MORPHINE 4 MG/ML SYR ONE ×2 (13:37→14:48)
--- NOTE | 2021-02-09 14:09 | RAD REPORT ---
EXAM DESCRIPTION: RAD - Foot Right 3 View - 02/09/2021 1:59 pm CLINICAL HISTORY: PAIN COMPARISON: FOOT W OBLIQUES dated 12/11/2009 FINDINGS: No acute fracture. Hallux valgus deformity at the first MTP. No significant focal degenera tive changes. IMPRESSION: No acute osseous abnormality involving the right foot.
--- NOTE | 2021-02-09 14:10 | RAD REPORT ---
EXAM DESCRIPTION: RAD - Ankle Right 3 View - 02/09/2021 1:59 pm CLINICAL HISTORY: PAIN COMPARISON: Ankle Left 3 View dated 12/16/2009 FINDINGS: Soft tissue swelling is present laterally. Avulsion fracture at the fibular tip. No malali gnment of the ankle. No other fractures are identified. IMPRESSION: Avulsion fracture at the fibular tip. No malalignment of the ankle.
--- NOTE | 2021-02-09 14:16 | ER ---
Nurse's Notes [facility] Name: Bri Boyd Age: 35 yrs Sex: Female : 1985 Arrival Date: 02/09/2021 Time: 12:48 Bed 25 Private MD: Diagnosis: Displaced fracture of lateral malleolus of right fibula-Avulsion fracture Presentation: 02/09 13:03 Chief complaint: Patient states: she fell from the third step when moving. Patient ap3 denies hitting her head as well as use of blood thinners. Patient reports hearing a snap in the ankle when she fell. Coronavirus screen: At this time, the client does not indicate any symptoms associated with coronavirus-19. Ebola Screen: No symptoms or risks identified at this time. Initial Sepsis Screen: Does the patient meet any 2 criteria? No. Patient's initial sepsis screen is negative. Initial Sepsis Screen: Does the patient have a suspected source of infection? No. Patient's initial sepsis screen is negative. Risk Assessment: Do you want to hurt yourself or someone else? Patient reports no desire to harm self or others. Onset of symptoms was February 09, 2021 at 12:30. 13:03 Method Of Arrival: Wheelchair ap3 13:03 Acuity: KARIE 4 ap3 Triage Assessment: 13:05 General: Appears uncomfortable, Behavior is calm, cooperative. Pain: Complains of pain ap3 in right ankle Pain began suddenly. Neuro: Level of Consciousness is awake, alert, obeys commands, Oriented to person, place, time, situation, Appropriate for age Speech is normal. Cardiovascular: Patient's skin is warm and dry. Respiratory: Airway is patent Respiratory effort is even, unlabored, Respiratory pattern is regular, symmetrical. Musculoskeletal: in right ankle. Injury Description: fell from third step. 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 patient states her manager pet advised her not to get vaccinated. - Social history:: Smoking status: Patient denies any tobacco usage or history of. - Family history:: not pertinent. - Hospitalizations: : No recent hospitalization is reported. Screenin:08 Abuse screen: Denies threats or abuse. Nutritional screening: No deficits noted. ap3 Tuberculosis screening: No symptoms or risk factors identified. Fall Risk Fall in past 12 months (25 points). Gait- Impaired (20 pts.). Total Adler Fall Scale indicates High Risk Score (45 or more points). Side Rails Up X 2 Placed Close to Nursing Station Frequent Obs/Assessments Occuring Family Present and informed to notify staff if the need to leave the bedside As available patient and family educated on Fall Prevention Program and Strategies. Assessment: 13:19 General: Appears uncomfortable, Behavior is cooperative. Pain: Complains of pain in jw6 right leg. Neuro: No deficits noted. Cardiovascular: No deficits noted. Respiratory: No deficits noted. GI: No deficits noted. : No deficits noted. EENT: No deficits noted. Derm: No deficits noted. Musculoskeletal: Bony deformity noted of right ankle and lateral aspect of right foot. Vital Signs: 13:03 BP 119 / 53; Pulse 73; Resp 18; Temp 98.6(O); Pulse Ox 100% on R/A; Weight 73.48 kg; ap3 Height 5 ft. 6 in. (167.64 cm); Pain 7/10; 13:18 BP 115 / 68; Pulse 61; Resp 18; Temp 98.9; Pulse Ox 100% ; Weight 74.84 kg; Height 5 jw6 ft. 6 in. (167.64 cm); Pain 10/10; 13:18 Body Mass Index 26.63 (74.84 kg, 167.64 cm) jw6 ED Course: 12:48 Patient arrived in ED. as 12:56 Raza De León MD is Attending Physician. rn 13:02 Johanny Motta is Primary Nurse. jw6 13:05 Triage completed. ap3 13:19 Patient has correct armband on for positive identification. Bed in low position. Call jw6 light in reach. 13:19 No provider procedures requiring assistance completed. Inserted saline lock: 20 gauge jw6 in left antecubital area, using aseptic technique. 13:21 Inserted saline lock: 20 gauge in left antecubital area, using aseptic technique. Blood dh4 collected. 13:59 XRAY Ankle RIGHT 3 view In Process Unspecified. EDMS 13:59 XRAY Foot RIGHT 3 View In Process Unspecified. EDMS 14:15 Jeronimo Garcia MD is Referral Physician. rn 14:39 IV discontinued, intact, bleeding controlled, No redness/swelling at site. Pressure jw6 dressing applied. 14:40 Splint/sling/ice applied as appropriate. jw6 14:46 Orthoglass splint: Posterior short lleg splint applied on right leg. Orthoglass splint: dh4 stirrup splint applied on right leg. Administered Medications: 13:18 Drug: morphine 4 mg Route: IVP; Site: right antecubital; jw6 13:18 Follow up: Response: No adverse reaction jw6 13:18 Drug: Zofran (Ondansetron) 4 mg Route: IVP; Site: right antecubital; jw6 13:18 Follow up: Response: No adverse reaction jw6 14:34 Drug: morphine 4 mg Route: IVP; Site: left antecubital; jw6 14:34 Follow up: Response: No adverse reaction jw6 Outcome: 14:15 Discharge ordered by MD. rn 14:39 Discharged to home via wheelchair. jw6 14:39 Condition: good 14:39 Discharge instructions given to patient, family, Instructed on discharge instructions, follow up and referral plans. medication usage, Demonstrated understanding of instructions, follow-up care, medications, crutch walking. 14:47 Patient left the ED. jw6 Signatures: Dispatcher [employer] Sondra Weiss Roman, MD MD rn Prokisch, Amanda, RN RN ap3 Trent Gifford 4 Johanny Motta jw6
--- NOTE | 2021-02-09 14:16 | EDPHYS ---
Physician Documentation [facility] Name: Bri Boyd Age: 35 yrs Sex: Female : 1985 Arrival Date: 02/09/2021 Time: 12:48 Bed 25 Private MD: ED Physician Raza De León HPI: 02/09 14:12 This 35 yrs old Female presents to ER via Wheelchair with complaints of Ankle rn Injury. 14:12 The patient presents with an injury, pain, swelling. The complaints affect the right rn ankle. Onset: The symptoms/episode began/occurred just prior to arrival. Context: The problem was sustained at home, resulted from a mis-step by the patient, The mechanism of injury involved inversion of the affected ankle. The patient can partially bear weight on the affected extremity. the patient is able to ambulate. Associated signs and symptoms: Pertinent positives: swelling, Pertinent negatives: numbness, weakness. Modifying factors: The symptoms are alleviated by elevation of extremity, the symptoms are aggravated by weight bearing, movement. Severity of symptoms: At their worst the symptoms were moderate, in the emergency department the symptoms are unchanged. The patient has experienced a previous episode. The patient has not recently seen a physician. She reports was moving, and missed a few steps, had a inversion injury to right ankle, and reports pain to lateral malleolus. Reports mild to moderate swelling already. Had a similar injury and status post surgery to left ankle. 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 patient states her it security consultant advised her not to get vaccinated. - Social history:: Smoking status: Patient denies any tobacco usage or history of. - Family history:: not pertinent. - Hospitalizations: : No recent hospitalization is reported. ROS: 14:12 Constitutional: Negative for fever, chills, and weight loss, MS/Extremity: Positive for rn right ankle injury and swelling Skin: Positive for bruising to right lateral ankle Neuro: Negative for weakness, numbness, tingling Exam: 14:12 Constitutional: This is a well developed, well nourished patient who is awake, alert, rn appears in mild discomfort, in wheelchair MS/ Extremity: Pulses equal, no cyanosis. Neurovascular intact. Mild tenderness and swelling along with ecchymosis to lateral malleolus of right ankle with swelling to midfoot. No discoloration of the foot. No calcaneal tenderness. Vital Signs: 13:03 BP 119 / 53; Pulse 73; Resp 18; Temp 98.6(O); Pulse Ox 100% on R/A; Weight 73.48 kg; ap3 Height 5 ft. 6 in. (167.64 cm); Pain 7/10; 13:18 BP 115 / 68; Pulse 61; Resp 18; Temp 98.9; Pulse Ox 100% ; Weight 74.84 kg; Height 5 jw6 ft. 6 in. (167.64 cm); Pain 10/10; 13:18 Body Mass Index 26.63 (74.84 kg, 167.64 cm) jw6 Procedures: 14:12 Splinting: Splint applied to right ankle using Orthoglass splint, applied by myself. rn Examined by me, post splint application: neurovascular intact, 2+ distal pulses palpable, brisk capillary refill noted, Patient tolerated well. MDM: 12:56 Patient medically screened. rn 14:12 Differential diagnosis: fracture, sprain. Data reviewed: vital signs, nurses notes, rn radiologic studies, plain films, and as a result, I will discharge patient. Counseling: I had a detailed discussion with the patient and/or guardian regarding: the historical points, exam findings, and any diagnostic results supporting the discharge/admit diagnosis, radiology results, the need for outpatient follow up, to return to the emergency department if symptoms worsen or persist or if there are any questions or concerns that arise at home. Response to treatment: the patient's symptoms have mildly improved after treatment, and as a result, I will discharge patient. Special discussion: I discussed with the patient/guardian in detail that at this point there is no indication for admission to the hospital. It is understood, however, that if the symptoms persist or worsen the patient needs to return immediately for re-evaluation. 17:59 Test interpretation: by ED physician or midlevel provider: plain radiologic studies, rn X-ray right ankle shows distal fibular avulsion fracture, no dislocation. 02/09 13:07 Order name: XRAY Ankle RIGHT 3 view; Complete Time: 14:11 rn 02/09 13:07 Order name: XRAY Foot RIGHT 3 View; Complete Time: 14:11 rn 02/09 13:07 Order name: IV Start; Complete Time: 13:18 rn 02/09 13:07 Order name: NPO; Complete Time: 13:18 rn 02/09 14:12 Order name: Splint - Ankle: Orthoglass: Stirrup; Complete Time: 14:40 rn 02/09 14:12 Order name: Splint - Ankle: Posterior; Complete Time: 14:40 rn Administered Medications: 13:18 Drug: morphine 4 mg Route: IVP; Site: right antecubital; jw6 13:18 Follow up: Response: No adverse reaction jw6 13:18 Drug: Zofran (Ondansetron) 4 mg Route: IVP; Site: right antecubital; jw6 13:18 Follow up: Response: No adverse reaction jw6 14:34 Drug: morphine 4 mg Route: IVP; Site: left antecubital; jw6 14:34 Follow up: Response: No adverse reaction jw6 Disposition Summary: 02/09/21 14:15 Discharge Ordered Location: Home rn Problem: new rn Symptoms: have improved rn Condition: Stable rn Diagnosis - Displaced fracture of lateral malleolus of right fibula - Avulsion fracture rn Followup: rn - With: Jeronimo Garcia MD - When: 5 - 6 days - Reason: Recheck today's complaints, Re-evaluation by your physician Discharge Instructions: - Discharge Summary Sheet rn - Ankle Fracture rn - Cast or Splint Care, Adult rn Forms: - Medication Reconciliation Form rn - Thank You Letter rn - Antibiotic events intern - Prescription Opioid Use rn Prescriptions: - Tylenol-Codeine #3 300 mg-30 mg Oral - take 1 tablet by ORAL route 2-3 times daily As needed; 15 tablet; Refills: 0, rn Product Selection Permitted Signatures: Dispatcher [employer] Raza Betancur MD MD rn Prokisch, Amanda, RN RN Johanny Smith jw6
[2021-02-09 17:22] VITALS: O2SAT 100
[2021-02-09 17:24] VITALS: BP 115/68; TEMP 98.9
== END 2021-02-09 14:47 | disposition home or self-care (01) ==
LOC: ER 12:47
PROC: 2W3QX1Z Immobilization of Right Lower Leg using Splint (ICD-10-PCS; principal; 2021-02-09)
DX: S82.61XA Displaced fracture of lateral malleolus of right fibula, initial encounter for closed fracture (principal); Z88.6 Allergy status to analgesic agent; Z91.048 Other nonmedicinal substance allergy status
CPT/HCPCS: 99284; J2405

== ENCOUNTER 2021-02-28 23:57 | Inpatient (IN) | payer SELFPAY ==
--- OUTSIDE RECORDS SUMMARY | 2021-03-01 00:13 | XMS REPORT | Continuity of Care Document ---
:1985 Author Organization [facility] t Address [address] [place] [address] Care Team Providers Name Role Phone Maya Cummins Attending Clinician Unavailable Juan Manuel Reis DO Attending Clinician Misael RINCON Attending Clinician Unavailable Samuel RINCON, Leta Attending Clinician Unavailable Mabel Woods MD Attending Clinician Visit, Nurse Attending Clinician Unavailable Angela OVALLEP, C Attending Clinician Roger BASEBALL SCOUT, N Attending Clinician Holger Upton MD Attending Clinician Rocío SANDRA S Attending Clinician Syd CASTILLOP, R Attending Clinician Dl SANDRA Attending Clinician Ultrasound Attending Clinician Unavailable Soraida Ferguson Attending Clinician Risk Attending Clinician Unavailable David, Attending Clinician Unavailable Ricarda Moore MD Attending Clinician Eduardo SANDRA, Jose Alberto Attending Clinician 2, [facility] Room Attending Clinician Unavailable Doctor Unassigned, Name Attending Clinician Unavailable Aries SANDRA Attending Clinician Faculty, [facility] Attending Clinician Unavailable Emy VASQUEZP, L Attending Clinician Damien Olmos MD Attending Clinician CorderoLuigi Attending Clinician Chaparro Patel Attending Clinician 5, [facility] Usg Room Attending Clinician Unavailable Chato SANDRA, M Attending Clinician Rj SANDRA, F Attending Clinician Jose C SANDRA Attending Clinician Maya Cummins Admitting Clinician Unavailable Peggy SANDRA, M Admitting Clinician Dl SANDRA Admitting Clinician Damien Olmos MD Admitting Clinician Payers Payer Name Policy Type Policy Number Effective Date Expiration Date S ource Advance Directives Directive Decision Effective Termination Comments Source Date Date Healthcare Agents on N/A Univ ersity FileNameRelationshipHealthcare [facility] [place] Agent Medical RelationshipCommunication[facility] [phone] (Mobile) [email or web address] Problems Condition Condition Condition Status Onset Resolution Last Treating Co mments Source Name Details Category Date Date Treatment Clinician Date Abnormal Abnormal Disease Active 2018-04 Unive rs TSH TSH 0-18 ity of 00:00: [address] Branch Fatty Fatty Disease Active 2018-04 Univers liver liver 0-18 ity of 00:00: [address] Branch Other Other Disease Active 2018-04 Univers fatigue fatigue 0-18 ity of 00:00: [address] Branch Severe Severe Disease Active Univers pre-eclamp pre-eclamp 9-17 it y of richard, richard, 00:00: [place] 00 Me dical condition condition Bran ch or or complicati complicati on on 37 weeks 37 weeks Disease Active Unive rs gestation gestation 9-05 ity of of of 00:00: [place] 00 [facility] Research Research Disease Active Overview: Un [place] study study 12-13 Notice of ity of patient: patient: 00:00: research Noé delgado ECCCO: ECCCO: 00 [facility] C tion in Branch the ECCCO Trial: IRB # [id number]. PI-Destin De La Rosa MD. Date of informed consent: ____. Patient consented to participa te in a research study entitled: Electron ic Confirmed versus Conventio nal Consentin g Process. Patient randomize d to Study group C. Electroni c consent to be completed prior to arrival to Labor and delivery for schedule section. Upon arrival to L&D patient will receive regular paper consent from health care provider. Research staff will give the patient a study questionn aire before discharge home. Patient will remain in the study until completio n of questionn aire. Delivery samples do not need to be collected . Please page the Research Departmen t. If you should have questions or concerns, you may page the PRD at . Disease Active U nivers anemia anemia 8- ity of 00:00: [address] Anemia of Anemia of Disease Active Uni vers mother in mother in 05 [place]y of , , [place] antepartum antepartum 00 Md dical Branch Obesity Obesity Disease Active Univers (BMI (BMI 7-08 ity of 30-39.9) 30-39.9) 00:00: [address] Rubella Rubella Disease Active Univers non-immune non-immune 6-25 it y of status, status, 00:00: [place] [facility]partum [facility] Need for Disease Active Unive rs immunizati immunizati 6-25 it y of on against on against [place] rub[place] rubella [facility] Placental Placental Disease Active Uni vers abnormalit abnormalit 6-25 it y of y y 00:00: [place] [address] [place] [address] ASCUS with ASCUS with Disease Active Overview : Univers positive positive 2-19 Schedule ity of high risk high risk 00:00: patient Eladio as human human 00 for colpo 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 Multiparit Multiparit Disease Active U nivers y y 2-12 ity of 00:00: [place] [facility] History of History of Disease Active Overview : Univers 2-12 X2 ity of section section 00:00: Medical Branch High risk High risk Disease Active Uni vers , , 2-12 it y of antepartum antepartum 00:00: [place] 00 [place] Obesity in Obesity in Disease Active U nivers 5-25 ity of 00:00: [place] [facility] Glanzmann' Glanzmann' Disease Active U nivers s s 4-24 ity of thrombosth thrombosth 00:00[place] enin enin 00 Medical disorder disorder Branch Chronic Chronic Disease Active Univers hepatitis hepatitis 4-24 ity of C without C without 00:00[place] hepatic hepatic 00 Medical coma coma Branch Allergies, Adverse Reactions, Alerts Allergy Allergy Status Severity Reaction(s) Onset Inactive Treating Comm ents Source Name Type Date Date Clinician iron DA Active U [facility] [place] asprin DA Active SV itching, [facility] hives 1-17 [facility] [place] iron DA Active U UNKNOWN [facility] 1[facility] [place] Penicill Propensi Active Unknown - Uni vers in ty to See comments 2-19 ity of adverse 00:00: [place] reaction 00 Medical s Branch Penicill Propensi Active Unknown - Uni vers in ty to See comments 2-19 ity of adverse 00:00: [place] reaction 00 Medical s Branch Aspirin Propensi Active Unknown - Unable to U nivers ty to See comments 9-09 take d/t it y of adverse 00:00: clotting [place] reaction 00 disorder. Medic al s Branch Social History Social Habit Start Date Stop Date Quantity Comments Source ASSERTION 2018-04-15 University of 00:00:00 [facility] Alcohol Comment occasionally Univers ity of [place] [facility] [place] Alcohol intake 2019-02-01 2019-02-01 Current non-drinker U niversity of 00:00:00 00:00:00 of alcohol [place] Medical (finding) Branch Tobacco use and 2019-02-01 2019-02-01 Never used Universit y of exposure 00:00:00 00:00:00 [facility] Cigarettes smoked 2019-02-01 2019-02-01 Univers ity of current (pack per 00:00:00 00:00:00 [facility] ) - Reported Branch Cigarette 2019-02-01 2019-02-01 University of pack-years 00:00:00 00:00:00 [facility] Tobacco Comment 2018-05-29 2018-05-29 1 pack per week; Uni versity of 00:00:00 00:00:00 quit 2015 [facility] History of 2015-06-21 Cigarette Smoker Universi ty of tobacco use 00:00:00 [facility] Sex [birth year] At [birth year] Universit y of 00:00:00 00:00:00 [facility] Smoking Status Start Date Stop Date Source Former smoker 2019-02-01 00:00:00 2019-02-01 00:00:00 Universi ty of [facility] Medications Ordered Filled Start Stop Current Ordering Indication Dosage Frequency Signature Comments Components Source Medication Medication Date Date Medication? Clinician (SIG) Name Name vitamin 2018-04 Yes 500ug Take 500 Unive rs B-12 500 0-18 mcg by ity of mcg tablet 16:20: mouth [place] 58 daily. Medical [place] vitamin C 2018-04 Yes 100mg Take 100 Uni vers 100 mg 0-18 mg by ity of tablet 16:20: mouth [place] 58 daily. Medical Branch vitamin 2018-04 Yes 500ug Take 500 Unive rs B-12 500 0-18 mcg by ity of mcg tablet 16:20: mouth [place] 58 daily. Medical [place] vitamin C 2018-04 Yes 100mg Take 100 Uni vers 100 mg 0-18 mg by ity of tablet 16:20: mouth [place] 58 daily. Medical Branch vitamin 2018-04 Yes 500ug Take 500 Unive rs B-12 500 0-18 mcg by ity of mcg tablet 16:20: mouth [place] 58 daily. [facility] vitamin C 2018-04 Yes 100mg Take 100 Uni vers 100 mg 0-18 mg by ity of tablet 16:20: mouth [place] 58 daily. Medical Branch vitamin Yes 500ug Take 500 Unive rs B-12 500 9-17 mcg by ity of mcg tablet 19:19: mouth [place] 55 daily. Medical [place] vitamin C Yes 100mg Take 100 Uni vers 100 mg 9-17 mg by ity of tablet 19:19: mouth [place] 55 daily. Medical Branch medroxyPROG Yes 150mg 150 mg, Un brayden ESTERone 01-01 Intramuscu ity o f (DEPO-PROVE 15:15: lar, [place] RA) 00 [id number], Medical injection First dose Bran ch 150 mg on Mon01/01/19 at 1015, Until Discontinu ed, Routine butalbital- 2019- No 2{tbl} 2 tablet, Univers acetaminoph 01-01 Oral, ity of en-caff 14:45: 13:52 ONCE, 1 [place] (ESGIC) 00 :00 dose, [facility] Medical 50-325-40 01/01/19 at Bran ch mg tablet 2 0945, tablet Routine HYDROcodone 2019- No 1{tbl} 1 tablet, Univers -acetaminop 01-01 Oral, ity of hen (NORCO 10:00: 08:55 ONCE, 1 [place] as 5) 5-325 mg 00 :00 dose, Tu Med ical tablet 1 01/01/19 at Bran h tablet 0500, Routine HYDROcodone 2019- No 1{tbl} 1 tablet, Univers -acetaminop 01-01 Oral, ity of hen (NORCO 06:45: 05:56 ONCE, 1 [place] as 5) 5-325 mg 00 :00 dose, Tu Med ical tablet 1 01/01/19 at Bran h tablet 0145, Routine D5W 0.45% Yes 1000mL at 100 Univ ers NaCl 01-01 mL/hr, ity of (1/2NS) IV 04:15: 1,000 [place], [place] infusion 00 IV Medical 1,000 mL Infusion, Branch CONTINUOUS , Starting 12/31/18 at 2315, Until Discontinu ed, SUSI magnesium 2019- No 2g/h 2 g/hr (25 U nivers sulfate in 01-01 mL/hr), at it y of LR 40 04:15: 16:14 25 mL/hr, [place] gram/500 mL 00 :00 IV Medical IV Solution Infusion, Bra nch CONTINUOUS , Starting 12/31/18 at 2315, Until 01/01/19 at 1114, SUSI calcium 2019-0 Yes 1000mg 1,000 mg, Uni vers gluconate 01-01 Slow IV ity of 100 mg/mL 04:07: Push, PRN [place] as (10%) 00 - SEE Medical injection INSTRUCTIO Bran ch 1,000 mg NS, Starting 12/31/18 at 2307, Until Discontinu ed, Routine, magnesium toxicity magnesium 2019-0 Yes 4g 32 mEq (4 Uni vers sulfate 4 9-17 g), Slow ity of mEq/mL (50 04:07: IV Push, [place] as %) 00 PRN - SEE Medical injection INSTRUCTIO Bran ch 32 mEq NS, Starting 12/31/18 at 2307, Until Discontinu ed, Routine, For seizure activity (patient not on magnesium sulfate) magnesium 2018-0 Yes 2g 16 mEq (2 Uni vers sulfate 4 9-17 g), Slow ity of mEq/mL (50 04:07: IV Push, [place] as %) 00 PRN - SEE Medical injection INSTRUCTIO Bran ch 16 mEq NS, 2 doses, Starting 12/31/18 at 2307, Until Discontinu ed, Routine, For seizure activity (patient already on magnesium sulfate) HYDROcodone 2019-0 Yes [id number] 1{tbl} Take 1 Univers -acetaminop 9-17 tablet by ity of hen 5-325 00:00: mouth [place] mg tablet 00 every 6 Medical (six) Branch hours as needed for Pain (scale 4-6). hydroCHLORO 2019-0 Yes [id number] 50mg Take 1 Univers thiazide 50 9-17 tablet by ity of mg tablet 00:00: mouth [place] 00 daily. Medical Branch magnesium 2019-0 2019- No 4g 32 mEq (4 Un brayden sulfate 4 -29 12-14 g), IV ity of mEq/mL (50 05:15: 04:48 Piggyback, [place] %) 00 :00 ONCE, 1 Medical injection dose, Sat Branc h 32 mEq 12/29/18 at 0015, STAT furosemide 2019-0 2019- No 40mg 40 mg, IV U nivers (LASIX) 12-29 Push, ity of injection 04:45: 04:41 ONCE, 1 [place] 40 mg 00 :00 dose, Fri Medical 12/28/18 at Branch 2345, SUSI ondansetron 2018-0 2019- No 4mg 4 mg, Slow Univers (ZOFRAN 12-29 IV Push, ity of (PF)) 02:30: 02:09 ONCE, 1 [place] injection 4 00 :00 dose, Fri Med ical mg 12/28/18 at Branch 2130, SUSI morpHINE 2019-0 2019- No 4mg 4 mg, Slow Un brayden injection 4 12-29 IV Push, ity of mg 02:30: 02:09 ONCE, 1 [place] 00 :00 dose, Fri Medical 12/28/18 at Branch 2130, STAT furosemide 2018-0 Yes [id number] 40mg Take 1 Univers (LASIX) 40 9-14 tablet by ity of mg tablet 00:00: mouth [place] 00 daily. Medical Branch hydrALAZINE 2018- Yes [id number] 10mg Take 1 Univers 10 mg 9-14 tablet by ity of tablet 00:00: mouth [place] 00 every 6 Medical (six) Branch hours. furosemide 2019- Yes [id number] 40mg Take 1 Univers (LASIX) 40 9-14 tablet by ity of mg tablet 00:00: mouth [place] 00 daily. [facility] Branch hydrALAZINE Yes [id number] 10mg Take 1 Univers 10 mg 9-14 tablet by ity of tablet 00:00: mouth [place] 00 every 6 Medical (six) Branch hours. furosemide 2019- Yes [id number] 40mg Take 1 Univers (LASIX) 40 9-14 tablet by ity of mg tablet 00:00: mouth [place] 00 daily. Medical Branch hydrALAZINE 2019-0 Yes [id number] 10mg Take 1 Univers 10 mg 9-14 tablet by ity of tablet 00:00: mouth [place] 00 every 6 Medical (six) Branch hours. furosemide 2019-0 Yes [id number] 40mg Take 1 Univers (LASIX) 40 9-14 tablet by ity of mg tablet 00:00: mouth [place] 00 daily. [facility] Branch hydrALAZINE 2018- Yes [id number] 10mg Take 1 Univers 10 mg 9-14 tablet by ity of tablet 00:00: mouth [place] 00 every 6 Medical (six) Branch hours. furosemide 2019-0 2019- No [id number] 40mg Take 1 Univers (LASIX) 40 9-14 17 tablet by ity of mg tablet 00:00: 00:00 mouth [place] 00 :00 daily. Medical Branch hydrALAZINE 2019- 2019- No [id number] 10mg Take 1 Univers 10 mg 12-29 tablet by ity of tablet 00:00: 00:00 mouth [place] 00 :00 every 6 Medical (six) Branch hours. vitamin 2019-0 Yes 500ug Take 500 Unive rs B-12 500 9-09 mcg by ity of mcg tablet 18:49: mouth [place] 42 daily. Medical Branch vitamin C 2019-0 Yes 100mg Take 100 Uni vers 100 mg 9-09 mg by ity of tablet 18:49: mouth [place] 42 daily. Medical Branch vitamin 2019-0 Yes 500ug Take 500 Unive rs B-12 500 9-09 mcg by ity of mcg tablet 18:49: mouth [place] 42 daily. Medical Branch vitamin C 2019-0 Yes 100mg Take 100 Uni vers 100 mg 9-09 mg by ity of tablet 18:49: mouth [place] 42 daily. Medical Branch vitamin 2019-0 Yes 500ug Take 500 Unive rs B-12 500 9-09 mcg by ity of mcg tablet 18:49: mouth [place] 42 daily. Medical Branch vitamin C 2019-0 Yes 100mg Take 100 Uni vers 100 mg 9-09 mg by ity of tablet 18:49: mouth [place] 42 daily. Medical Branch vitamin 2019-0 Yes 500ug Take 500 Unive rs B-12 500 9-09 mcg by ity of mcg tablet 18:49: mouth [place] 42 daily. Medical Branch vitamin C 2019-0 Yes 100mg Take 100 Uni vers 100 mg 9-09 mg by ity of tablet 18:49: mouth [place] 42 daily. Medical Branch vitamin 2019-0 Yes 500ug Take 500 Unive rs B-12 500 9-09 mcg by ity of mcg tablet 18:49: mouth [place] 42 daily. Medical Branch vitamin C 2019-0 Yes 100mg Take 100 Uni vers 100 mg 9-09 mg by ity of tablet 18:49: mouth [place] 42 daily. Medical Branch vitamin 2019-0 Yes 500ug Take 500 Unive rs B-12 500 9-09 mcg by ity of mcg tablet 18:49: mouth [place] 42 daily. Medical Branch vitamin C 2019-0 Yes 100mg Take 100 Uni vers 100 mg 9-09 mg by ity of tablet 18:49: mouth [place] 42 daily. Medical Branch rho(D) 2019-0 Yes 300ug 300 mcg, Univer s immune 12-24 Intramuscu ity of globulin 06:27: lar, ONCE, [place] as (RHOGAM) 23 For 1 Medical syringe 300 dose, Branch mcg Conditiona l, Routine diphenhydrA 0 Yes 25mg 25 mg, Univ ers MINE 12-24 Oral, ity of (BENADRYL) 06:27: Q6HPRN, [place] tablet 25 19 Starting Medica l mg 12/24/18 Branch at 0127, Until Discontinu ed, Routine, Sleep, Itching ondansetron 2019-0 Yes 4mg 4 mg, Slow Univers (ZOFRAN 12-24 IV Push, ity of (PF)) 06:27: Q8HPRN, [place] injection 4 19 Starting Medi frank mg 12/24/18 Branch at 0127, Until Discontinu ed, Routine, Nausea and Vomiting (N/V) bisacodyl Yes 10mg 10 mg, Univer s (DULCOLAX) 12-24 Rectal, ity of suppository 06:27: QDAILYPRN, [place] 10 mg 19 Starting Medical 12/24/18 Branch at 0127, Until Discontinu ed, Routine, Constipati on simethicone Yes 160mg 160 mg, Un brayden (GAS 12-24 Oral, ity of RELIEF) 06:27: PC+HSPRN, [place] chewable 19 Starting Medical tablet 160 12/24/18 Bra nch mg at 0127, Until Discontinu ed, Routine, Gas docusate 0 Yes 240mg 240 mg, Unive rs calcium 12-24 Oral, ity of (SURFAK) 06:27: QDAILYPRN, [place] as capsule 240 19 Starting Medi frank mg 12/24/18 Branch at 0127, Until Discontinu ed, Routine, Constipati on magnesium 0 Yes 30mL 30 mL, Univer s hydroxide 12-24 Oral, ity of (MILK OF 06:27: QDAILYPRN, [place] as MAGNESIA) 19 Starting Medica l 400 mg/5 mL 12/24/18 Br anch suspension at 0127, 30 mL Until Discontinu ed, Routine, Constipati on HYDROcodone 0 Yes 1{tbl} 1 tablet, Univers -acetaminop 9-09 Oral, ity of hen (NORCO) 05:07: Q6HPRN, [place] as 10-325 mg 35 Starting Medica l tablet 1 Mon12/24/18 Branc h tablet at 0007, Until Discontinu ed, Routine, Pain (scale 7-10) docusate Yes [id number] 240mg Take 1 U nivers calcium 240 9-09 capsule by it y of mg capsule 00:00: mouth [place] 00 daily as Medical needed for Branch Constipati on. HYDROcodone Yes [id number] 1{tbl} Take 1 Univers -acetaminop 9-09 tablet by ity of hen 5-325 00:00: mouth [place] mg tablet 00 every 6 Medical (six) Branch hours as needed for Pain (scale 4-6) (If uncontroll ed by Ibuprofen) . simethicone Yes [id number] 160mg Take 2 Univers 80 mg 9-09 tablets by ity of chewable 00:00: mouth [place] tablet 00 after Medical meals and Branch at bedtime as needed for Gas. docusate Yes [id number] 240mg Take 1 U nivers calcium 240 9-09 capsule by it y of mg capsule 00:00: mouth once [place] 00 daily as Medical needed for Branch Constipati on. HYDROcodone Yes [id number] 1{tbl} Take 1 Univers -acetaminop 9-09 tablet by ity of hen 5-325 00:00: mouth [place] mg tablet 00 every 6 Medical (six) Branch hours as needed for Pain (scale 4-6) (If uncontroll ed by Ibuprofen) . simethicone Yes [id number] 160mg Take 2 Univers 80 mg 9-09 tablets by ity of chewable 00:00: mouth [place] tablet 00 after Medical meals and Branch at bedtime as needed for Gas. docusate Yes [id number] 240mg Take 1 U nivers calcium 240 9-09 capsule by it y of mg capsule 00:00: mouth once [place] 00 daily as Medical needed for Branch Constipati on. HYDROcodone Yes [id number] 1{tbl} Take 1 Univers -acetaminop 9-09 tablet by ity of hen 5-325 00:00: mouth [place] mg tablet 00 every 6 Medical (six) Branch hours as needed for Pain (scale 4-6) (If uncontroll ed by Ibuprofen) . simethicone Yes [id number] 160mg Take 2 Univers 80 mg 9-09 tablets by ity of chewable 00:00: mouth [place] tablet 00 after Medical meals and Branch at bedtime as needed for Gas. docusate Yes [id number] 240mg Take 1 U nivers calcium 240 9-09 capsule by it y of mg capsule 00:00: mouth once [place] 00 daily as Medical needed for Branch Constipati on. HYDROcodone Yes [id number] 1{tbl} Take 1 Univers -acetaminop 9-09 tablet by ity of hen 5-325 00:00: mouth [place] mg tablet 00 every 6 Medical (six) Branch hours as needed for Pain (scale 4-6) (If uncontroll ed by Ibuprofen) . simethicone Yes [id number] 160mg Take 2 Univers 80 mg 9-09 tablets by ity of chewable 00:00: mouth [place] tablet 00 after Medical meals and Branch at bedtime as needed for Gas. docusate Yes [id number] 240mg Take 1 U nivers calcium 240 9-09 capsule by it y of mg capsule 00:00: mouth once [place] 00 daily as Medical needed for Branch Constipati on. HYDROcodone Yes [id number] 1{tbl} Take 1 Univers -acetaminop 9-09 tablet by ity of hen 5-325 00:00: mouth [place] mg tablet 00 every 6 Medical (six) Branch hours as needed for Pain (scale 4-6) (If uncontroll ed by Ibuprofen) . simethicone Yes [id number] 160mg Take 2 Univers 80 mg 9-09 tablets by ity of chewable 00:00: mouth [place] tablet 00 after Medical meals and Branch at bedtime as needed for Gas. docusate 0 Yes [id number] 240mg Take 1 U nivers calcium 240 9-09 capsule by it y of mg capsule 00:00: mouth once [place] 00 daily as Medical needed for Branch Constipati on. HYDROcodone 2018- Yes [id number] 1{tbl} Take 1 Univers -acetaminop 9-09 tablet by ity of hen 5-325 00:00: mouth [place] mg tablet 00 every 6 Medical (six) Branch hours as needed for Pain (scale 4-6) (If uncontroll ed by Ibuprofen) . simethicone 2019 Yes [id number] 160mg Take 2 Univers 80 mg 12-24 tablets by ity of chewable 00:00: mouth [place] tablet 00 after Medical meals and Branch at bedtime as needed for Gas. docusate 2019- Yes [id number] 240mg Take 1 U nivers calcium 240 12-24 capsule by it y of mg capsule 00:00: mouth once [place] 00 daily as Medical needed for Branch Constipati on. simethicone Yes [id number] 160mg Take 2 Univers 80 mg - tablets by ity of chewable 00:00: mouth [place] tablet 00 after Medical meals and Branch at bedtime as needed for Gas. HYDROcodone 2019- No [id number] 1{tbl} Take 1 Univers -acetaminop 12-24- tablet by it y of hen 5-325 00:00: 00:00 mouth [place] mg tablet 00 :00 every 6 Medical (six) Branch hours as needed for Pain (scale 4-6) (If uncontroll ed by Ibuprofen) . bacitracin Yes Topical Univ ers 500 unit/g 12-23 (Apply To ity of ointment 30 21:00: Affected [place] g tube 00 Areas), Medical QID, First Branch dose on 12/23/18 at 1600, Until Discontinu ed, Routine tranexamic 2019- No 1000mg 1,000 mg, Univers acid 12-22 IV ity of (CYKLOKAPRO 15:17: 23:29 Piggy[place], [place] N) 1,000 mg 00 :00 Q8H ABX, 7 Me dical in NaCl doses, Branch 0.9% (NS) First dose 250 mL on Sat piggyback 12/22/18 at 1030, Last dose on 12/24/18 at 1030, 250 mL sennosides 2019- No 8.6mg 8.6 mg, Un brayden (SENOKOT) 12-22 Oral, ity of tablet 8.6 14:00: 06:27 DAILY, [place] mg 00 :24 First dose Medical on Sat Branch 12/22/18 at 0900, Until Discontinu ed, Routine docusate 2019- No 100mg 100 mg, Univ ers (COLACE) 12-22 Oral, ity of capsule 100 14:00: 06:27 DAILY, [place] as mg 00 :24 First dose Medical on Sat Branch 12/22/18 at 0900, Until Discontinu ed, Routine ondansetron Yes 4mg 4 mg, Slow Univers (ZOFRAN 12-22 IV Push, ity of (PF)) 13:30: Q6HPRN, [place] injection 4 57 Starting Medi frank mg 12/22/18 Branch at 0830, Until Discontinu ed, Routine, Nausea and Vomiting (N/V) HYDROcodone 2019- No 2{tbl} 2 tablet, Univers -acetaminop 12-22 Oral, ity of hen (NORCO 13:00: 05:07 Q4HPRN, [place] as 5) 5-325 mg 00 :52 Starting Medi frank tablet 2 12/22/18 Branc h tablet at 0800, Until 12/24/18 at 0007, Routine, Pain (scale 7-10), If uncontroll ed by Ibuprofen coagulation 2019- No [id number] 10,000 Univers factor viia 12-22 mcg, Slow it y of recomb 12:00: 13:56 IV Push, [place] (NOVOSEVEN) 00 :00 ONCE, 1 Medic al injection dose, Sat Branc h 10,000 mcg 12/22/18 at 0700, SUSI
Us e approved by (Faculty and pager): Suresh SAUNDERS , [id number], HEMATOLOGY /ONCOLOGY HYDROcodone Yes 1{tbl} 1 tablet, Univers -acetaminop 12-22 Oral, ity of hen (NORCO 08:21: Q6HPRN, [place] 5) 5-325 mg 28 Starting Medi frank tablet 1 12/22/18 Branc h tablet at 0321, Until Discontinu ed, Routine, Pain (scale 4-6), If uncontroll ed by Ibuprofen HYDROcodone 2019- No 2{tbl} 2 tablet, Univers -acetaminop 9-07 09-07 Oral, ity of hen (NORCO 08:21: 12:50 Q6HPRN, [place] as 5) 5-325 mg 28 :21 Starting Medi frank tablet 2 12/22/18 Branc h tablet at 0321, Until 12/22/18 at 0750, Routine, Pain (scale 7-10), If uncontroll ed by Ibuprofen ondansetron 2019- No 4mg 4 mg, Slow Univers (ZOFRAN 12-22 IV Push, ity of (PF)) 07:15: 07:00 ONCE, 1 [place] injection 4 00 :00 dose, Sat Med ical mg 12/22/18 at Branch 0215, Routine coagulation 2019- No [id number] 10,000 Univers factor viia 12-22 mcg, Slow it y of recomb 07:15: 06:54 IV Push, [place] (NOVOSEVEN) 00 :00 ONCE, 1 Medic al injection dose, Sat Branc h 10,000 mcg 12/22/18 at 0215, Routine
Use approved by (Faculty and pager): Suresh SAUNDERS , [id number], HEMATOLOGY /ONCOLOGY hydrocortis Yes 25mg 25 mg, Univ ers one 12-22 Rectal, ity of (ANUSOL-HC) 04:10: BIDPRN, [place] as suppository 37 Starting Medi frank 25 mg 12/21/18 Branch at 2310, Until Discontinu ed, Routine, Rectal itching/pa in coagulation 2019- No 9000ug 9,000 mcg, Univers factor viia 12-22 Slow IV ity of recomb 02:45: 02:13 [place], [place] (NOVOSEVEN) 00 :00 ONCE, 1 Medic al injection dose, Fri Branc h 9,000 mcg 12/21/18 at 2145, Routine
Use approved by (Faculty and pager): Suresh SAUNDERS [id number], HEMATOLOGY /ONCOLOGY coagulation 2019- No [id number] 10,000 Univers factor viia 12-21- mcg, Slow it y of recomb 20:00: 20:27 IV Push, [place] (NOVOSEVEN) 00 :00 ONCE, 1 Medic al injection dose, Fri Branc h 10,000 mcg 12/21/18 at 1500, SUSI
Us e approved by (Faculty and pager): Suresh SAUNDERS , [id number], HEMATOLOGY /ONCOLOGY morpHINE 30 2019- No Unive rs mg/30 mL 12-21 ity of (fixed 18:00: 06:27 [place] dose) CHINCHILLA FARMER 00 :24 Medical injection Branch coagulation 2019- No [id number] 10,000 Univers factor viia 12-21 mcg, Slow it y of recomb 17:10: 17:55 IV Push, [place] (NOVOSEVEN) 00 :00 ONCE, 1 Medic al injection dose, Mon Branc h 10,000 mcg 12/21/18 at 1215, SUSI
Us e approved by (Faculty and pager): Suresh SAUNDERS , [id number], HEMATOLOGY /ONCOLOGY LR 1000 mL 2018- No at 125 Univ ers + oxytocin 12-21 mL/hr, IV ity of 20 units IV 17:00: 16:59 Infusion, [place] Solution 00 :00 CONTINUOUS Medic al , Starting Branch Mon12/21/18 at 1200, Until 12/22/18 at 1159, SUSI morpHINE 2 2018- No Slow IV Uni vers mg/mL LOAD 12-21 Push, ity of & RESCUE 16:52: 06:27 Routine [place] INJECTION 59 :24 Medical SYRG Branch lactated 0 Yes 1000mL at 75 Univer s ringers IV 9-06 mL/hr, ity of infusion 16:30: 1,000 [place], [place] 1,000 mL 00 IV Medical Infusion, Branch CONTINUOUS , Starting Mon12/21/18 at 1130, Until Discontinu ed, Routine, PACU morpHINE 2018-0 Yes 2mg 2 mg, Slow Uni vers injection 2 12-21 IV Push, ity of mg 16:26: Q5MIN PRN, [place] 05 5 doses, Medical Starting Branch Mon12/21/18 at 1126, Until Discontinu ed, Routine, Pain (scale 4-6), PACU ondansetron 2018- No 4mg 4 mg, Slow Univers (ZOFRAN 12-21 IV Push, ity of (PF)) 16:26: 02:53 PRN, 1 [place] injection 4 05 :00 dose, Medical mg Starting Branch Mon12/21/18 at 1126, Until Discontinu ed, Routine, Nausea and Vomiting (N/V), PACU 2018- No 1{tbl} 1 tablet, U nivers vitamin 12-21 Oral, ity of w/FA 14:00: 06:27 DAILY, [place] (PRENATABS 00 :24 First dose Med ical RX) tablet on Fri Branch 1 tablet 12/21/18 at 0900, Until Discontinu ed, Routine diphenhydrA 2018- No 25mg 25 mg, Uni vers MINE 12-21 Slow IV ity of (BENADRYL) 14:00: 13:46 Push, [place] injection 00 :00 ONCE, 1 Medical 25 mg dose, Mon Branch 12/21/18 at 0900, Routine lactated 2018- No 500mL at 999 Unive rs ringers IV 12-21 mL/hr, 500 it y of infusion 12:30: 12:30 mL, IV [place] 500 mL 00 :00 Infusion, Medical ONCE, 1 Branch dose, Mon12/21/18 at 0730, Routine gentamicin 2018- No 5mg/kg 388 mg (5 Univers 388 mg in 12-21 mg/kg ity of NaCl 0.9% 11:49: 15:46 ?77.6 kg Eladio as (NS) 250 mL 07 :00 Adjusted Medi frank IV infusion weight), Bran ch IV Infusion, O.R. HOLDING ONCE, 1 dose, Starting Mon12/21/18 at 0649, Until Discontinu ed, 250 mL
Reas on for Anti-Infec tive: Surgical Prophylaxi s
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
Duration of therapy: within 24 hours of surgery clindamycin 2018- No 900mg 900 mg, IV Univers in 5 % 12-21 Piggyback, ity of dextrose 11:23: 15:17 O.R. [place] (CLEOCIN) 04 :00 HOLDING Medical 900 mg/50 ONCE, 1 Branch mL dose, Piggyback Starting 900 mg Mon12/21/18 at 0623, Until Discontinu ed, 50 mL
Facu lty member approving Restricted medication : OB FACULTY
Reason for Anti-Infec tive: Surgical Prophylaxi s
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
Duration of therapy: within 24 hours of surgery
Restricte d use approved by: FLIGHT TEST SUPERVISOR FACULTY sodium 2019- No 30mL 30 mL, Univers citrate-cit 12-21 Oral, ity of marino acid 11:22: 14:47 PRE[place]PROCED [place] (BICITRA[place] 44 :00 URE ONCE, Medic al 500-334 1 dose, Branch mg/5 mL Starting solution 30 Mon12/21/18 mL at 0622, Until Discontinu ed, Routine, Surgery docusate 2019- No 240mg 240 mg, Univ ers calcium 12-21 Oral, ity of (SURFAK) 01:45: 06:27 QHSPRN, [place] capsule 240 30 :24 Starting Medi frank mg Jeny 12/20/18 Branch at 2045, Until 12/24/18 at 0127, Routine, Constipati on vitamin Yes 500ug Take 500 Unive rs B-12 500 8-19 mcg by ity of mcg tablet 22:25: mouth [place] 38 daily. Medical Branch vitamin C Yes 100mg Take 100 Uni vers 100 mg 8-19 mg by ity of tablet 22:25: mouth [place] 38 daily. Medical Branch vitamin Yes 500ug Take 500 Unive rs B-12 500 8-19 mcg by ity of mcg tablet 22:25: mouth [place] 38 daily. [facility] Branch vitamin C Yes 100mg Take 100 Uni vers 100 mg 8-19 mg by ity of tablet 22:25: mouth [place] 38 daily. Medical Branch vitamin Yes 500ug Take 500 Unive rs B-12 500 8-19 mcg by ity of mcg tablet 22:25: mouth [place] 38 daily. [facility] Branch vitamin C Yes 100mg Take 100 Uni vers 100 mg 8-19 mg by ity of tablet 22:25: mouth [place] 38 daily. [facility] Branch vitamin Yes 500ug Take 500 Unive rs B-12 500 8-19 mcg by ity of mcg tablet 22:25: mouth [place] 38 daily. [facility] Branch vitamin C Yes 100mg Take 100 Uni vers 100 mg 8-19 mg by ity of tablet 22:25: mouth [place] 38 daily. [facility] Branch vitamin Yes 500ug Take 500 Unive rs B-12 500 8-19 mcg by ity of mcg tablet 22:25: mouth [place] 38 daily. Medical Branch vitamin C 2019- Yes 100mg Take 100 Uni vers 100 mg 8-19 mg by ity of tablet 22:25: mouth [place] 38 daily. Medical Branch vitamin 2019-0 Yes 500ug Take 500 Unive rs B-12 500 8-19 mcg by ity of mcg tablet 22:25: mouth [place] 38 daily. Medical Branch vitamin C 2018- Yes 100mg Take 100 Uni vers 100 mg 8-19 mg by ity of tablet 22:25: mouth [place] 38 daily. Medical Branch vitamin 2019- Yes 500ug Take 500 Unive rs B-12 500 8-19 mcg by ity of mcg tablet 22:25: mouth [place] 38 daily. Medical Branch vitamin C 2018- Yes 100mg Take 100 Uni vers 100 mg 8-19 mg by ity of tablet 22:25: mouth [place] 38 daily. Medical Branch vitamin 2019- Yes 500ug Take 500 Unive rs B-12 500 8-19 mcg by ity of mcg tablet 22:25: mouth [place] 38 daily. Medical Branch vitamin C 2018- Yes 100mg Take 100 Uni vers 100 mg 8-19 mg by ity of tablet 22:25: mouth [place] 38 daily. Medical Branch vitamin 2019- Yes 500ug Take 500 Unive rs B-12 500 8-19 mcg by ity of mcg tablet 22:25: mouth [place] 38 daily. Medical Branch vitamin C Yes 100mg Take 100 Uni vers 100 mg 8-19 mg by ity of tablet 22:25: mouth [place] 38 daily. Medical Branch vitamin 2019-0 Yes 500ug Take 500 Unive rs B-12 500 8-19 mcg by ity of mcg tablet 22:25: mouth [place] 38 daily. Medical Branch vitamin C 2018- Yes 100mg Take 100 Uni vers 100 mg 8-19 mg by ity of tablet 22:25: mouth [place] 38 daily. Medical Branch vitamin 2019-0 Yes 500ug Take 500 Unive rs B-12 500 8-19 mcg by ity of mcg tablet 22:25: mouth [place] 38 daily. Medical Branch vitamin C 2019- Yes 100mg Take 100 Uni vers 100 mg 8-19 mg by ity of tablet 22:25: mouth [place] 38 daily. Medical Branch vitamin C 2018- Yes 100mg Take 100 Uni vers 100 mg 8-08 mg by ity of tablet 13:53: mouth [place] 47 daily. Medical Branch vitamin C 2019-0 Yes 100mg Take 100 Uni vers 100 mg 8-08 mg by ity of tablet 13:53: mouth [place] 47 daily. Medical Branch vitamin C 2019-0 Yes 100mg Take 100 Uni vers 100 mg 8-08 mg by ity of tablet 13:53: mouth [place] 47 daily. Medical Branch vitamin C 2019-0 Yes 100mg Take 100 Uni vers 100 mg 8-08 mg by ity of tablet 13:53: mouth [place] 47 daily. Medical Branch vitamin C 2019-0 Yes 100mg Take 100 Uni vers 100 mg 8-08 mg by ity of tablet 13:53: mouth [place] 47 daily. Medical Branch vitamin C 2019-0 Yes 100mg Take 100 Uni vers 100 mg 8-08 mg by ity of tablet 13:53: mouth [place] 47 daily. Medical Branch vitamin C 2019- Yes 100mg Take 100 Uni vers 100 mg 8-08 mg by ity of tablet 13:53: mouth [place] 47 daily. Medical Branch vitamin C 2018- Yes 100mg Take 100 Uni vers 100 mg 8-08 mg by ity of tablet 13:53: mouth [place] 47 daily. Medical Branch vitamin 2019-0 Yes 500ug Take 500 Unive rs B-12 500 8-08 mcg by ity of mcg tablet 13:53: mouth [place] 46 daily. Medical Branch vitamin 2019-0 Yes 500ug Take 500 Unive rs B-12 500 8-08 mcg by ity of mcg tablet 13:53: mouth [place] 46 daily. Medical Branch vitamin 2019-0 Yes 500ug Take 500 Unive rs B-12 500 8-08 mcg by ity of mcg tablet 13:53: mouth [place] 46 daily. Medical Branch vitamin 2019-0 Yes 500ug Take 500 Unive rs B-12 500 8-08 mcg by ity of mcg tablet 13:53: mouth [place] 46 daily. Medical Branch vitamin 2019-0 Yes 500ug Take 500 Unive rs B-12 500 8-08 mcg by ity of mcg tablet 13:53: mouth [place] 46 daily. Medical Branch vitamin 2019-0 Yes 500ug Take 500 Unive rs B-12 500 8-08 mcg by ity of mcg tablet 13:53: mouth [place] 46 daily. Medical Branch vitamin 2019-0 Yes 500ug Take 500 Unive rs B-12 500 8-08 mcg by ity of mcg tablet 13:53: mouth [place] 46 daily. Medical Branch vitamin 2019-0 Yes 500ug Take 500 Unive rs B-12 500 8-08 mcg by ity of mcg tablet 13:53: mouth [place] 46 daily. Medical Branch vitamin 2019-0 Yes 500ug Take 500 Unive rs B-12 500 8-05 mcg by ity of mcg tablet 21:31: mouth [place] 26 daily. Medical Branch vitamin C Yes 100mg Take 100 Uni vers 100 mg 8-05 mg by ity of tablet 21:31: mouth [place] 26 daily. Medical Branch acetaminoph Yes 650mg 650 mg, Un brayden en 8-05 Oral, ity of (TYLENOL) 19:55: Q6HPRN, [place] tablet 650 28 Starting Medic al mg 11/19/18 Branch at 1455, Until Discontinu ed, Routine, Pain (scale 1-3), Pain (scale 4-6) vitamin 2018- Yes 500ug Take 500 Unive rs B-12 500 7-15 mcg by ity of mcg tablet 23:57: mouth [place] 18 daily. Medical Branch vitamin C Yes 100mg Take 100 Uni vers 100 mg 7-15 mg by ity of tablet 23:57: mouth [place] 18 daily. Medical Branch vitamin 2018- Yes 500ug Take 500 Unive rs B-12 500 7-15 mcg by ity of mcg tablet 23:57: mouth [place] 18 daily. Medical Branch vitamin C Yes 100mg Take 100 Uni vers 100 mg 7-15 mg by ity of tablet 23:57: mouth [place] 18 daily. Medical Branch vitamin 2019-0 Yes 500ug Take 500 Unive rs B-12 500 7-15 mcg by ity of mcg tablet 23:57: mouth [place] 18 daily. Medical Branch vitamin C Yes 100mg Take 100 Uni vers 100 mg 7-15 mg by ity of tablet 23:57: mouth [place] 18 daily. Medical Branch vitamin 2019-0 Yes 500ug Take 500 Unive rs B-12 500 7-15 mcg by ity of mcg tablet 23:57: mouth [place] 18 daily. Medical Branch vitamin C 2018- Yes 100mg Take 100 Uni vers 100 mg 7-15 mg by ity of tablet 23:57: mouth [place] 18 daily. Medical Branch vitamin 2019-0 Yes 500ug Take 500 Unive rs B-12 500 7-15 mcg by ity of mcg tablet 23:57: mouth [place] 18 daily. Medical Branch vitamin C 2019-0 Yes 100mg Take 100 Uni vers 100 mg 7-15 mg by ity of tablet 23:57: mouth [place] 18 daily. Medical Branch vitamin 2019-0 Yes 500ug Take 500 Unive rs B-12 500 7-15 mcg by ity of mcg tablet 23:57: mouth [place] 18 daily. Medical Branch vitamin C Yes 100mg Take 100 Uni vers 100 mg 7-15 mg by ity of tablet 23:57: mouth [place] 18 daily. Medical Branch vitamin 2019- Yes 500ug Take 500 Unive rs B-12 500 7-15 mcg by ity of mcg tablet 23:57: mouth [place] 18 daily. Medical Branch vitamin C Yes 100mg Take 100 Uni vers 100 mg 7-15 mg by ity of tablet 23:57: mouth [place] 18 daily. Medical Branch vitamin 2019- Yes 500ug Take 500 Unive rs B-12 500 7-15 mcg by ity of mcg tablet 23:57: mouth [place] 18 daily. Medical Branch vitamin C Yes 100mg Take 100 Uni vers 100 mg 7-15 mg by ity of tablet 23:57: mouth [place] 18 daily. Medical Branch ferrous 2019-0 Yes [id number] 325mg Take 1 Un brayden sulfate 325 7-02 tablet by ity of mg (65 mg 00:00: mouth 2 [place] iron) 00 (two) Medical tablet times Branch daily. ferrous 2019-0 Yes [id number] 325mg Take 1 Un brayden sulfate 325 7-02 tablet by ity of mg (65 mg 00:00: mouth 2 [place] iron) 00 (two) Medical tablet times Branch daily. ferrous 2019-0 Yes [id number] 325mg Take 1 Un brayden sulfate 325 7-02 tablet by ity of mg (65 mg 00:00: mouth 2 [place] iron) 00 (two) Medical tablet times Branch daily. ferrous 2019-0 Yes [id number] 325mg Take 1 Un brayden sulfate 325 7-02 tablet by ity of mg (65 mg 00:00: mouth 2 [place] iron) 00 (two) Medical tablet times Branch daily. ferrous 2019-0 Yes [id number] 325mg Take 1 Un brayden sulfate 325 7-02 tablet by ity of mg (65 mg 00:00: mouth 2 [place] iron) 00 (two) Medical tablet times Branch daily. ferrous 2019-0 Yes [id number] 325mg Take 1 Un brayden sulfate 325 7-02 tablet by ity of mg (65 mg 00:00: mouth 2 [place] iron) 00 (two) Medical tablet times Branch daily. ferrous 2019-0 Yes [id number] 325mg Take 1 Un brayden sulfate 325 7-02 tablet by ity of mg (65 mg 00:00: mouth 2 [place] iron) 00 (two) Medical tablet times Branch daily. ferrous 2019-0 Yes [id number] 325mg Take 1 Un brayden sulfate 325 7-02 tablet by ity of mg (65 mg 00:00: mouth 2 [place] iron) 00 (two) Medical tablet times Branch daily. ferrous 2019-0 Yes [id number] 325mg Take 1 Un brayden sulfate 325 7-02 tablet by ity of mg (65 mg 00:00: mouth 2 [place] iron) 00 (two) Medical tablet times Branch daily. ferrous 2018-0 Yes [id number] 325mg Take 1 Un brayden sulfate 325 7-02 tablet by ity of mg (65 mg 00:00: mouth 2 [place] iron) 00 (two) Medical tablet times Branch daily. ferrous 2019-0 Yes [id number] 325mg Take 1 Un brayden sulfate 325 7-02 tablet by ity of mg (65 mg 00:00: mouth 2 [place] iron) 00 (two) Medical tablet times Branch daily. ferrous 2019-0 Yes [id number] 325mg Take 1 Un brayden sulfate 325 7-02 tablet by ity of mg (65 mg 00:00: mouth 2 [place] iron) 00 (two) Medical tablet times Branch daily. ferrous 2019-0 Yes [id number] 325mg Take 1 Un brayden sulfate 325 7-02 tablet by ity of mg (65 mg 00:00: mouth 2 [place] iron) 00 (two) Medical tablet times Branch daily. ferrous 2019-0 Yes [id number] 325mg Take 1 Un brayden sulfate 325 7-02 tablet by ity of mg (65 mg 00:00: mouth 2 [place] iron) 00 (two) Medical tablet times Branch daily. ferrous 2019-0 Yes [id number] 325mg Take 1 Un brayden sulfate 325 7-02 tablet by ity of mg (65 mg 00:00: mouth 2 [place] iron) 00 (two) Medical tablet times Branch daily. ferrous 2019-0 Yes [id number] 325mg Take 1 Un brayden sulfate 325 7-02 tablet by ity of mg (65 mg 00:00: mouth 2 [place] iron) 00 (two) Medical tablet times Branch daily. ferrous 2019-0 Yes [id number] 325mg Take 1 Un brayden sulfate 325 7-02 tablet by ity of mg (65 mg 00:00: mouth 2 [place] iron) 00 (two) Medical tablet times Branch daily. ferrous 2018-0 Yes [id number] 325mg Take 1 Un brayden sulfate 325 7-02 tablet by ity of mg (65 mg 00:00: mouth 2 [place] iron) 00 (two) Medical tablet times Branch daily. ferrous 2019-0 Yes [id number] 325mg Take 1 Un brayden sulfate 325 7-02 tablet by ity of mg (65 mg 00:00: mouth 2 [place] iron) 00 (two) Medical tablet times Branch daily. ferrous 2018-0 Yes [id number] 325mg Take 1 Un brayden sulfate 325 7-02 tablet by ity of mg (65 mg 00:00: mouth 2 [place] iron) 00 (two) Medical tablet times Branch daily. ferrous 2018-0 Yes [id number] 325mg Take 1 Un brayden sulfate 325 7-02 tablet by ity of mg (65 mg 00:00: mouth 2 [place] iron) 00 (two) Medical tablet times Branch daily. ferrous 2019-0 Yes [id number] 325mg Take 1 Un brayden sulfate 325 7-02 tablet by ity of mg (65 mg 00:00: mouth 2 [place] iron) 00 (two) Medical tablet times Branch daily. ferrous 2018-0 Yes [id number] 325mg Take 1 Un brayden sulfate 325 7-02 tablet by ity of mg (65 mg 00:00: mouth 2 [place] iron) 00 (two) Medical tablet times Branch daily. ferrous 2019-0 Yes [id number] 325mg Take 1 Un brayden sulfate 325 7-02 tablet by ity of mg (65 mg 00:00: mouth 2 [place] iron) 00 (two) Medical tablet times Branch daily. ferrous 2019-0 Yes [id number] 325mg Take 1 Un brayden sulfate 325 7-02 tablet by ity of mg (65 mg 00:00: mouth 2 [place] iron) 00 (two) Medical tablet times Branch daily. ferrous 2019-0 Yes [id number] 325mg Take 1 Un brayden sulfate 325 7-02 tablet by ity of mg (65 mg 00:00: mouth 2 [place] iron) 00 (two) Medical tablet times Branch daily. ferrous 2019-0 Yes [id number] 325mg Take 1 Un brayden sulfate 325 7-02 tablet by ity of mg (65 mg 00:00: mouth 2 [place] iron) 00 (two) Medical tablet times Branch daily. ferrous 2019-0 Yes [id number] 325mg Take 1 Un brayden sulfate 325 7-02 tablet by ity of mg (65 mg 00:00: mouth 2 [place] iron) 00 (two) Medical tablet times Branch daily. ferrous 2019-0 Yes [id number] 325mg Take 1 Un brayden sulfate 325 7-02 tablet by ity of mg (65 mg 00:00: mouth 2 [place] iron) 00 (two) Medical tablet times Branch daily. ferrous 2018-0 Yes [id number] 325mg Take 1 Un brayden sulfate 325 7-02 tablet by ity of mg (65 mg 00:00: mouth 2 [place] iron) 00 (two) Medical tablet times Branch daily. ferrous 2018-0 Yes [id number] 325mg Take 1 Un brayden sulfate 325 7-02 tablet by ity of mg (65 mg 00:00: mouth 2 [place] iron) 00 (two) Medical tablet times Branch daily. ferrous 2019-0 Yes [id number] 325mg Take 1 Un brayden sulfate 325 7-02 tablet by ity of mg (65 mg 00:00: mouth 2 [place] iron) 00 (two) Medical tablet times Branch daily. ferrous 2019-0 Yes [id number] 325mg Take 1 Un brayden sulfate 325 7-02 tablet by ity of mg (65 mg 00:00: mouth 2 [place] iron) 00 (two) Medical tablet times Branch daily. ferrous 2019-0 Yes [id number] 325mg Take 1 Un brayden sulfate 325 7-02 tablet by ity of mg (65 mg 00:00: mouth 2 [place] iron) 00 (two) Medical tablet times Branch daily. ferrous 2019-0 Yes [id number] 325mg Take 1 Un brayden sulfate 325 7-02 tablet by ity of mg (65 mg 00:00: mouth 2 [place] iron) 00 (two) Medical tablet times Branch daily. ferrous 2019-0 Yes [id number] 325mg Take 1 Un brayden sulfate 325 7-02 tablet by ity of mg (65 mg 00:00: mouth 2 [place] iron) 00 (two) Medical tablet times Branch daily. ferrous 2019-0 Yes [id number] 325mg Take 1 Un brayden sulfate 325 7-02 tablet by ity of mg (65 mg 00:00: mouth 2 [place] iron) 00 (two) Medical tablet times Branch daily. ferrous 2019-0 Yes [id number] 325mg Take 1 Un brayden sulfate 325 7-02 tablet by ity of mg (65 mg 00:00: mouth 2 [place] iron) 00 (two) Medical tablet times Branch daily. PNV 67-iron 2019- Yes [id number] 1{each} Take 1 Univers ps-folate 4-05 Each by ity of no.1-dha 00:00: mouth [place] (VITAFOL 00 daily. Medical ULTRA) 29 Branch mg iron- 1 mg-200 mg Cap PNV 67-iron 2018- Yes [id number] 1{each} Take 1 Univers ps-folate 4-05 Each by ity of no.1-dha 00:00: mouth [place] (VITAFOL 00 daily. Medical ULTRA) 29 Branch mg iron- 1 mg-200 mg Cap PNV 67-iron 2019- Yes [id number] 1{each} Take 1 Univers ps-folate 4-05 Each by ity of no.1-dha 00:00: mouth [place] (VITAFOL 00 daily. Medical ULTRA) 29 Branch mg iron- 1 mg-200 mg Cap PNV 67-iron 2018- Yes [id number] 1{each} Take 1 Univers ps-folate 4-05 Each by ity of no.1-dha 00:00: mouth [place] (VITAFOL 00 daily. Medical ULTRA) 29 Branch mg iron- 1 mg-200 mg Cap PNV 67-iron 2019- Yes [id number] 1{each} Take 1 Univers ps-folate 4-05 Each by ity of no.1-dha 00:00: mouth [place] (VITAFOL 00 daily. Medical ULTRA) 29 Branch mg iron- 1 mg-200 mg Cap PNV 67-iron 2019- Yes [id number] 1{each} Take 1 Univers ps-folate 4-05 Each by ity of no.1-dha 00:00: mouth [place] (VITAFOL 00 daily. Medical ULTRA) 29 Branch mg iron- 1 mg-200 mg Cap PNV 67-iron 2019- Yes [id number] 1{each} Take 1 Univers ps-folate 4-05 Each by ity of no.1-dha 00:00: mouth [place] (VITAFOL 00 daily. Medical ULTRA) 29 Branch mg iron- 1 mg-200 mg Cap PNV 67-iron 2019-0 Yes [id number] 1{each} Take 1 Univers ps-folate 4-05 Each by ity of no.1-dha 00:00: mouth [place] (VITAFOL 00 daily. Medical ULTRA) 29 Branch mg iron- 1 mg-200 mg Cap PNV 67-iron 2019-0 Yes [id number] 1{each} Take 1 Univers ps-folate 4-05 Each by ity of no.1-dha 00:00: mouth [place] (VITAFOL 00 daily. Medical ULTRA) 29 Branch mg iron- 1 mg-200 mg Cap PNV 67-iron 2019-0 Yes [id number] 1{each} Take 1 Univers ps-folate 4-05 Each by ity of no.1-dha 00:00: mouth [place] (VITAFOL 00 daily. Medical ULTRA) 29 Branch mg iron- 1 mg-200 mg Cap PNV 67-iron 2019-0 Yes [id number] 1{each} Take 1 Univers ps-folate 4-05 Each by ity of no.1-dha 00:00: mouth [place] (VITAFOL 00 daily. Medical ULTRA) 29 Branch mg iron- 1 mg-200 mg Cap PNV 67-iron 2019-0 Yes [id number] 1{each} Take 1 Univers ps-folate 4-05 Each by ity of no.1-dha 00:00: mouth [place] (VITAFOL 00 daily. Medical ULTRA) 29 Branch mg iron- 1 mg-200 mg Cap PNV 67-iron 2019-0 Yes [id number] 1{each} Take 1 Univers ps-folate 4-05 Each by ity of no.1-dha 00:00: mouth [place] (VITAFOL 00 daily. Medical ULTRA) 29 Branch mg iron- 1 mg-200 mg Cap PNV 67-iron 2019-0 Yes [id number] 1{each} Take 1 Univers ps-folate 4-05 Each by ity of no.1-dha 00:00: mouth [place] (VITAFOL 00 daily. Medical ULTRA) 29 Branch mg iron- 1 mg-200 mg Cap PNV 67-iron 2019-0 Yes [id number] 1{each} Take 1 Univers ps-folate 4-05 Each by ity of no.1-dha 00:00: mouth [place] (VITAFOL 00 daily. Medical ULTRA) 29 Branch mg iron- 1 mg-200 mg Cap PNV 67-iron 2019-0 Yes [id number] 1{each} Take 1 Univers ps-folate 4-05 Each by ity of no.1-dha 00:00: mouth [place] (VITAFOL 00 daily. Medical ULTRA) 29 Branch mg iron- 1 mg-200 mg Cap PNV 67-iron 2019-0 Yes [id number] 1{each} Take 1 Univers ps-folate 4-05 Each by ity of no.1-dha 00:00: mouth [place] (VITAFOL 00 daily. Medical ULTRA) 29 Branch mg iron- 1 mg-200 mg Cap PNV 67-iron 2019-0 Yes [id number] 1{each} Take 1 Univers ps-folate 4-05 Each by ity of no.1-dha 00:00: mouth [place] (VITAFOL 00 daily. Medical ULTRA) 29 Branch mg iron- 1 mg-200 mg Cap PNV 67-iron 2019-0 Yes [id number] 1{each} Take 1 Univers ps-folate 4-05 Each by ity of no.1-dha 00:00: mouth [place] (VITAFOL 00 daily. Medical ULTRA) 29 Branch mg iron- 1 mg-200 mg Cap PNV 67-iron 2019-0 Yes [id number] 1{each} Take 1 Univers ps-folate 4-05 Each by ity of no.1-dha 00:00: mouth [place] (VITAFOL 00 daily. Medical ULTRA) 29 Branch mg iron- 1 mg-200 mg Cap PNV 67-iron 2019-0 Yes [id number] 1{each} Take 1 Univers ps-folate 4-05 Each by ity of no.1-dha 00:00: mouth [place] (VITAFOL 00 daily. Medical ULTRA) 29 Branch mg iron- 1 mg-200 mg Cap PNV 67-iron 2019-0 Yes [id number] 1{each} Take 1 Univers ps-folate 4-05 Each by ity of no.1-dha 00:00: mouth [place] (VITAFOL 00 daily. Medical ULTRA) 29 Branch mg iron- 1 mg-200 mg Cap PNV 67-iron 2019-0 Yes [id number] 1{each} Take 1 Univers ps-folate 4-05 Each by ity of no.1-dha 00:00: mouth [place] (VITAFOL 00 daily. Medical ULTRA) 29 Branch mg iron- 1 mg-200 mg Cap PNV 67-iron 2019-0 Yes [id number] 1{each} Take 1 Univers ps-folate 4-05 Each by ity of no.1-dha 00:00: mouth [place] (VITAFOL 00 daily. Medical ULTRA) 29 Branch mg iron- 1 mg-200 mg Cap PNV 67-iron 2019-0 Yes [id number] 1{each} Take 1 Univers ps-folate 4-05 Each by ity of no.1-dha 00:00: mouth [place] (VITAFOL 00 daily. Medical ULTRA) 29 Branch mg iron- 1 mg-200 mg Cap PNV 67-iron 2019-0 Yes [id number] 1{each} Take 1 Univers ps-folate 4-05 Each by ity of no.1-dha 00:00: mouth [place] (VITAFOL 00 daily. Medical ULTRA) 29 Branch mg iron- 1 mg-200 mg Cap PNV 67-iron 2019-0 Yes [id number] 1{each} Take 1 Univers ps-folate 4-05 Each by ity of no.1-dha 00:00: mouth [place] (VITAFOL 00 daily. Medical ULTRA) 29 Branch mg iron- 1 mg-200 mg Cap PNV 67-iron 2019-0 Yes [id number] 1{each} Take 1 Univers ps-folate 4-05 Each by ity of no.1-dha 00:00: mouth [place] (VITAFOL 00 daily. Medical ULTRA) 29 Branch mg iron- 1 mg-200 mg Cap PNV 67-iron 2019-0 Yes [id number] 1{each} Take 1 Univers ps-folate 4-05 Each by ity of no.1-dha 00:00: mouth [place] (VITAFOL 00 daily. Medical ULTRA) 29 Branch mg iron- 1 mg-200 mg Cap PNV 67-iron 2019-0 Yes [id number] 1{each} Take 1 Univers ps-folate 4-05 Each by ity of no.1-dha 00:00: mouth [place] (VITAFOL 00 daily. Medical ULTRA) 29 Branch mg iron- 1 mg-200 mg Cap PNV 67-iron 2019-0 Yes [id number] 1{each} Take 1 Univers ps-folate 4-05 Each by ity of no.1-dha 00:00: mouth [place] (VITAFOL 00 daily. Medical ULTRA) 29 Branch mg iron- 1 mg-200 mg Cap PNV 67-iron 2019-0 Yes [id number] 1{each} Take 1 Univers ps-folate 4-05 Each by ity of no.1-dha 00:00: mouth [place] (VITAFOL 00 daily. Medical ULTRA) 29 Branch mg iron- 1 mg-200 mg Cap PNV 67-iron 2019-0 Yes [id number] 1{each} Take 1 Univers ps-folate 4-05 Each by ity of no.1-dha 00:00: mouth [place] (VITAFOL 00 daily. Medical ULTRA) 29 Branch mg iron- 1 mg-200 mg Cap PNV 67-iron 2019-0 Yes [id number] 1{each} Take 1 Univers ps-folate 4-05 Each by ity of no.1-dha 00:00: mouth [place] (VITAFOL 00 daily. Medical ULTRA) 29 Branch mg iron- 1 mg-200 mg Cap PNV 67-iron 2019-0 Yes [id number] 1{each} Take 1 Univers ps-folate 4-05 Each by ity of no.1-dha 00:00: mouth [place] (VITAFOL 00 daily. Medical ULTRA) 29 Branch mg iron- 1 mg-200 mg Cap PNV 67-iron 2019-0 Yes [id number] 1{each} Take 1 Univers ps-folate 4-05 Each by ity of no.1-dha 00:00: mouth [place] (VITAFOL 00 daily. Medical ULTRA) 29 Branch mg iron- 1 mg-200 mg Cap PNV 67-iron 2019-0 Yes [id number] 1{each} Take 1 Univers ps-folate 4-05 Each by ity of no.1-dha 00:00: mouth [place] (VITAFOL 00 daily. Medical ULTRA) 29 Branch mg iron- 1 mg-200 mg Cap PNV 67-iron 2019-0 Yes [id number] 1{each} Take 1 [facility] ps-folate 4-05 Each by ity of no.1-dha 00:00: mouth [place] (VITAFOL 00 daily. Medical ULTRA) 29 Branch mg iron- 1 mg-200 mg Cap Immunizations Ordered Filled Immunization Date Status Comments [facility] e Immunization Name Name TDAP (ADACEL) 2018-10-15 Completed [place] [facility] VACCINE 00:00:00 [facility] TDAP (ADACEL) 2018-10-15 Completed [facility]ACCINE 00:00:00 [facility] TDAP (ADACEL) 2018-10-15 Completed [facility] VACCINE 00:00:00 [facility] TDAP (ADACEL) 2018-10-15 Completed [facility] VACCINE 00:00:00 [facility] TDAP (ADACEL) 2018-10-15 Completed [facility] VACCINE 00:00:00 [facility] TDAP (ADACEL) 2018-10-15 Completed [facility] VACCINE 00:00:00 [facility] TDAP (ADACEL) 2018-10-15 Completed [facility] VACCINE 00:00:00 [facility] TDAP (ADACEL) 2018-10-15 Completed [facility] VACCINE 00:00:00 [facility] TDAP (ADACEL) 2018-10-15 Completed [facility] VACCINE 00:00:00 [facility] TDAP (ADACEL) 2018-10-15 Completed [facility] VACCINE 00:00:00 [facility] TDAP (ADACEL) 2018-10-15 Completed [facility] VACCINE 00:00:00 [facility] TDAP (ADACEL) 2018-10-15 Completed [facility] VACCINE 00:00:00 [facility] TDAP (ADACEL) 2018-10-15 Completed [facility] VACCINE 00:00:00 [facility] TDAP (ADACEL) 2018-10-15 Completed [facility] VACCINE 00:00:00 [facility] TDAP (ADACEL) 2018-10-15 Completed [facility] VACCINE 00:00:00 [facility] TDAP (ADACEL) 2018-10-15 Completed [facility] VACCINE 00:00:00 [facility] TDAP (ADACEL) 2018-10-15 Completed [facility] VACCINE 00:00:00 [facility] TDAP (ADACEL) 2018-10-15 Completed [facility] VACCINE 00:00:00 [facility] TDAP (ADACEL) 2018-10-15 Completed [facility] VACCINE 00:00:00 [facility] TDAP (ADACEL) 2018-10-15 Completed [facility] VACCINE 00:00:00 [facility] TDAP (ADACEL) 2018-10-15 Completed [facility] VACCINE 00:00:00 [facility] TDAP (ADACEL) 2018-10-15 Completed [facility] VACCINE 00:00:00 [facility] TDAP (ADACEL) 2018-10-15 Completed [facility] VACCINE 00:00:00 [facility] TDAP (ADACEL) 2018-10-15 Completed [facility] VACCINE 00:00:00 [facility] TDAP (ADACEL) 2018-10-15 Completed [facility] VACCINE 00:00:00 [facility] TDAP (ADACEL) 2018-10-15 Completed [facility] VACCINE 00:00:00 [facility] TDAP (ADACEL) 2018-10-15 Completed [facility] VACCINE 00:00:00 [facility] TDAP (ADACEL) 2018-10-15 Completed [facility] VACCINE 00:00:00 [facility] TDAP (ADACEL) 2018-10-15 Completed [facility] VACCINE 00:00:00 [facility] TDAP (ADACEL) 2018-10-15 Completed [facility] VACCINE 00:00:00 [facility] TDAP (ADACEL) 2018-10-15 Completed [facility] VACCINE 00:00:00 [facility] TDAP (ADACEL) 2018-10-15 Completed [facility] VACCINE 00:00:00 [facility] TDAP (ADACEL) 2018-10-15 Completed [facility] VACCINE 00:00:00 [facility] TDAP (ADACEL) 2018-10-15 Completed [facility] VACCINE 00:00:00 [facility] TDAP (ADACEL) 2018-10-15 Completed [facility] VACCINE 00:00:00 [facility] TDAP (ADACEL) 2018-10-15 Completed [facility] VACCINE 00:00:00 [facility] TDAP (ADACEL) 2018-10-15 Completed [facility] VACCINE 00:00:00 [facility] TDAP (ADACEL) 2018-10-15 Completed [facility] VACCINE 00:00:00 [facility] Vital Signs Vital Name Observation Time Observation Value Comments Source Systolic blood 2019-01-01 14:00:00 124 mm[Hg] Univer sity of pressure [facility] Diastolic blood 2019-01-01 14:00:00 85 mm[Hg] Unive rsity of pressure [facility] Heart rate 2019-01-01 14:00:00 60 /min [facility] Respiratory rate 2019-01-01 14:00:00 18 /min [facility] Oxygen saturation in 2019-01-01 14:00:00 98 /min [facility] Arterial blood by [facility] Pulse oximetry Branch Body temperature 2019-01-01 13:15:[address] [facility] Body weight 2019-01-01 03:07:00 101.651 kg [facility] BMI 2019-01-01 03:07:00 36.17 kg/m2 [facility] Systolic blood 2019-01-01 14:00:00 124 mm[Hg] [facility] Diastolic blood 2019-01-01 14:00:00 85 mm[Hg] [facility] Heart rate 2019-01-01 14:00:00 60 /min [facility] Respiratory rate 2019-01-01 14:00:00 18 /min [facility] ers[facility] of [facility] Oxygen saturation in 2019-01-01 14:00:00 98 /min [facility] Arterial blood by [facility] Pulse oximetry Branch Body temperature 2019-01-01 13:15:00 36.78 Radha [facility] Body weight 2019-01-01 03:07:00 101.651 kg [facility] BMI 2019-01-01 03:07:00 36.17 kg/m2 [facility] Systolic blood 2018-12-31 20:26:00 162 mm[Hg] [facility] Diastolic blood 2018-12-31 20:26:00 90 mm[Hg] [facility] Heart rate 2018-12-31 20:21:00 67 /min [facility] Body temperature 2018-12-31 20:21:00 37.06 Radha [facility] Respiratory rate 2018-12-31 20:21:00 16 /min [facility] Body height 2018-12-31 20:21:00 167.6 cm [facility] Body weight 2018-12-31 20:21:00 102.116 kg [facility] BMI 2018-12-31 20:21:00 36.34 kg/m2 [facility] Systolic blood 2018-12-31 20:26:00 162 mm[Hg] [facility] Diastolic blood 2018-12-31 20:26:00 90 mm[Hg] [facility] Heart rate 2018-12-31 20:21:00 67 /min [facility] Body temperature 2018-12-31 20:21:00 37.06 Radha [facility] Respiratory rate 2018-12-31 20:21:00 16 /min [facility] Body height 2018-12-31 20:21:00 167.6 cm [facility] Body weight 2018-12-31 20:21:00 102.116 kg [facility] BMI 2018-12-31 20:21:00 36.34 kg/m2 [facility] Systolic blood 2018-12-29 05:30:00 133 mm[Hg] [facility] Diastolic blood 2018-12-29 05:30:00 77 mm[Hg] [facility] Heart rate 2018-12-29 05:30:00 52 /min [facility] Respiratory rate 2018-12-29 05:30:00 15 /min [facility] Oxygen saturation in 2018-12-29 05:30:00 98 /min [facility] blood by [place] [facility] Pulse oxim[facility] Body temperature 2018-12-29 00:43:00 37.17 Radha [facility] Body height 2018-12-29 00:43:00 167.6 cm [facility] Body weight 2018-12-29 00:43:00 108.863 kg [facility] BMI 2018-12-29 00:43:00 38.74 kg/m2 [facility] Systolic blood 2018-12-29 05:30:00 133 mm[Hg] [facility] Diastolic blood 2018-12-29 05:30:00 77 mm[Hg] [facility] Heart rate 2018-12-29 05:30:00 52 /min [facility] Respiratory rate 2018-12-29 05:30:00 15 /min [facility] Oxygen saturation in 2018-12-29 05:30:00 98 /min [facility]terial blood by [place] [facility] Pulse oxim[facility] Body temperature 2018-12-29 00:43:00 37.17 Radha [facility] Body height 2018-12-29 00:43:00 167.6 cm [facility] Body weight 2018-12-29 00:43:00 108.863 kg [facility] BMI 2018-12-29 00:43:00 38.74 kg/m2 [facility] Systolic blood 2018-12-28 18:47:00 172 mm[Hg] [facility] Diastolic blood 2018-12-28 18:47:00 90 mm[Hg] [facility] Heart rate 2018-12-28 18:47:00 52 /min [facility] Body temperature 2018-12-28 18:32:00 36.89 Radha [facility] Respiratory rate 2018-12-28 18:32:00 16 /min [facility] Body height 2018-12-28 18:32:00 165.1 cm [facility] Body weight 2018-12-28 18:32:00 109.118 kg [facility] BMI 2018-12-28 18:32:00 40.03 kg/m2 [facility] Systolic blood 2018-12-28 18:47:00 172 mm[Hg] [facility] Diastolic blood 2018-12-28 18:47:00 90 mm[Hg] [facility] Heart rate 2018-12-28 18:47:00 52 /min [facility] Body temperature 2018-12-28 18:32:00 36.89 Radha [facility] Respiratory rate 2018-12-28 18:32:00 16 /min [facility] Body height 2018-12-28 18:32:00 165.1 cm [facility] Body weight 2018-12-28 18:32:00 109.118 kg [facility] BMI 2018-12-28 18:32:00 40.03 kg/m2 [facility] Body temperature 2018-12-24 13:00:00 36.61 Radha [facility] Systolic blood 2018-12-24 09:00:00 119 mm[Hg] [facility] Diastolic blood 2018-12-24 09:00:00 79 mm[Hg] [facility] Heart rate 2018-12-24 09:00:00 69 /min [facility] Respiratory rate 2018-12-24 09:00:00 18 /min [facility] Oxygen saturation in 2018-12-24 09:00:00 99 /min [facility] Arterial blood by [facility] Pulse oximetry [facility] Body height 2018-12-21 15:30:00 165.1 cm [facility] Body weight 2018-12-21 15:30:00 108.636 kg [facility] BMI 2018-12-21 15:30:00 39.85 kg/m2 [facility] Body temperature 2018-12-24 13:00:00 36.61 Radha [facility] Systolic blood 2018-12-24 09:00:00 119 mm[Hg] [facility] Diastolic blood 2018-12-24 09:00:00 79 mm[Hg] [facility]ive [facility] Heart rate 2018-12-24 09:00:00 69 /min [facility] Respiratory rate 2018-12-24 09:00:00 18 /min [facility] Oxygen saturation in 2018-12-24 09:00:00 99 /min [facility] Arterial blood by [facility] Pulse oximetry Branch Body height 2018-12-21 15:30:00 165.1 cm [facility] Body weight 2018-12-21 15:30:00 108.636 kg [facility] BMI 2018-12-21 15:30:00 39.85 kg/m2 [facility] Systolic blood 2018-12-20 15:34:00 113 mm[Hg] [facility] Diastolic blood 2018-12-20 15:34:00 72 mm[Hg] [facility]ive rs[facility] Heart rate 2018-12-20 15:34:00 90 /min [facility] Body temperature 2018-12-20 15:34:00 36.78 Radha [facility] Respiratory rate 2018-12-20 15:34:00 16 /min [facility] Body weight 2018-12-20 15:34:00 108.636 kg [facility] BMI 2018-12-20 15:34:00 39.85 kg/m2 [facility] Systolic blood 2018-12-20 15:34:00 113 mm[Hg] [facility] Diastolic blood 2018-12-20 15:34:00 72 mm[Hg] [facility] Heart rate 2018-12-20 15:34:00 90 /min [facility] Body temperature 2018-12-20 15:34:00 36.78 Radha [facility] Respiratory rate 2018-12-20 15:34:00 16 /min [facility] Body weight 2018-12-20 15:34:00 108.636 kg [facility] BMI 2018-12-20 15:34:00 39.85 kg/m2 [facility] Systolic blood 2018-12-18 17:58:00 119 mm[Hg] [facility] Diastolic blood 2018-12-18 17:58:00 70 mm[Hg] Unive rsity of pressure [facility] Heart rate 2018-12-18 17:58:00 80 /min [facility] Body temperature 2018-12-18 17:58:00 36.78 Radha [facility] Respiratory rate 2018-12-18 17:58:00 16 /min [facility] Body height 2018-12-18 17:58:00 165.1 cm [facility] Body weight 2018-12-18 17:58:00 109.43 kg [facility] BMI 2018-12-18 17:58:00 40.15 kg/m2 [facility] Systolic blood 2018-12-18 17:58:00 119 mm[Hg] [facility] Diastolic blood 2018-12-18 17:58:00 70 mm[Hg] [facility] Heart rate 2018-12-18 17:58:00 80 /min [facility] Body temperature 2018-12-18 17:58:00 36.78 Radha [facility] Respiratory rate 2018-12-18 17:58:00 16 /min [facility] Body height 2018-12-18 17:58:00 165.1 cm [facility] Body weight 2018-12-18 17:58:00 109.43 kg [facility] BMI 2018-12-18 17:58:00 40.15 kg/m2 [facility] Systolic blood 2018-12-13 18:42:00 110 mm[Hg] [facility] Diastolic blood 2018-12-13 18:42:00 56 mm[Hg] Unive rsity of [facility] Heart rate 2018-12-13 18:42:00 74 /min [facility] Body temperature 2018-12-13 18:42:00 36.72 Radha [facility] Respiratory rate 2018-12-13 18:42:00 18 /min [facility] Body height 2018-12-13 18:42:00 165.1 cm [facility] Body weight 2018-12-13 18:42:00 109.544 kg [facility] BMI 2018-12-13 18:42:00 40.19 kg/m2 [facility] Systolic blood 2018-12-13 18:42:00 110 mm[Hg] [facility]iver [facility] of [facility] Diastolic blood 2018-12-13 18:42:00 56 mm[Hg] Unive rsity of [facility] Heart rate 2018-12-13 18:42:00 74 /min [facility] Body temperature 2018-12-13 18:42:00 36.72 Radha [facility] Respiratory rate 2018-12-13 18:42:00 18 /min [facility] Body height 2018-12-13 18:42:00 165.1 cm [facility] Body weight 2018-12-13 18:42:00 109.544 kg [facility] BMI 2018-12-13 18:42:00 40.19 kg/m2 [facility] Systolic blood 2018-12-10 15:42:00 98 mm[Hg] [facility] Diastolic blood 2018-12-10 15:42:00 66 mm[Hg] Unive rsity of [facility] Heart rate 2018-12-10 15:42:00 71 /min [facility] Body temperature 2018-12-10 15:42:00 37.06 Radha [facility] Respiratory rate 2018-12-10 15:42:00 16 /min [facility] Body height 2018-12-10 15:42:00 165.1 cm [facility] Body weight 2018-12-10 15:42:00 109.77 kg [facility] BMI 2018-12-10 15:42:00 40.27 kg/m2 [facility] Systolic blood 2018-12-10 15:42:00 98 mm[Hg] Univer [facility]ity of pressure [facility] Diastolic blood 2018-12-10 15:42:00 66 mm[Hg] Unive rsity of pressure [facility] Heart rate 2018-12-10 15:42:00 71 /min [facility] Body temperature 2018-12-10 15:42:00 37.06 Radha [facility] Respiratory rate 2018-12-10 15:42:00 16 /min [facility] Body height 2018-12-10 15:42:00 165.1 cm [facility] Body weight 2018-12-10 15:42:00 109.77 kg [facility] BMI 2018-12-10 15:42:00 40.27 kg/m2 [facility] Systolic blood 2018-12-06 15:34:00 122 mm[Hg] [facility] Diastolic blood 2018-12-06 15:34:00 64 mm[Hg] Unive rsity of [facility] Heart rate 2018-12-06 15:34:00 95 /min [facility] Body temperature 2018-12-06 15:34:00 36.89 Radha [facility] Respiratory rate 2018-12-06 15:34:00 16 /min [facility] Body height 2018-12-06 15:34:00 165.1 cm [facility] Body weight 2018-12-06 15:34:00 111.33 kg [facility] BMI 2018-12-06 15:34:00 40.84 kg/m2 [facility] Systolic blood 2018-12-06 15:34:00 122 mm[Hg] [facility] Diastolic blood 2018-12-06 15:34:00 64 mm[Hg] Unive rsity of pressure [facility] Heart rate 2018-12-06 15:34:00 95 /min [facility] Body temperature 2018-12-06 15:34:00 36.89 Rahda [facility] Respiratory rate 2018-12-06 15:34:00 16 /min [facility] Body height 2018-12-06 15:34:00 165.1 cm [facility] Body weight 2018-12-06 15:34:00 111.33 kg [facility] BMI 2018-12-06 15:34:00 40.84 kg/m2 [facility] Heart rate 2018-12-03 21:30:00 77 /min [facility] Oxygen saturation in 2018-12-03 21:30:00 99 /min [facility] Arterial blood by [place] [facility] Systolic blood 2018-12-03 19:12:00 139 mm[Hg] Univer [facility]ity of pressure [facility] Diastolic blood 2018-12-03 19:12:00 74 mm[Hg] Unive rsity of pressure [facility] Body temperature 2018-12-03 19:12:00 36.83 Radha [facility] Respiratory rate 2018-12-03 19:12:00 18 /min [facility] Body height 2018-12-03 19:12:00 167.6 cm [facility] Body weight 2018-12-03 19:12:00 111.494 kg [facility] BMI 2018-12-03 19:12:00 39.69 kg/m2 [facility] Heart rate 2018-12-03 21:30:00 77 /min [facility] Oxygen saturation in 2018-12-03 21:30:00 99 /min [facility]terial blood by [place] [facility] Systolic blood 2018-12-03 19:12:00 139 mm[Hg] [facility] Diastolic blood 2018-12-03 19:12:00 74 mm[Hg] [facility] Body temperature 2018-12-03 19:12:00 36.83 Radha [facility] Respiratory rate 2018-12-03 19:12:00 18 /min [facility] Body height 2018-12-03 19:12:00 167.6 cm [facility] Body weight 2018-12-03 19:12:00 111.494 kg [facility] BMI 2018-12-03 19:12:00 39.69 kg/m2 [facility] Systolic blood 2018-12-03 15:02:00 113 mm[Hg] [facility] Diastolic blood 2018-12-03 15:02:00 60 mm[Hg] [facility] Heart rate 2018-12-03 15:02:00 73 /min [facility] Body temperature 2018-12-03 15:02:00 36.89 Radha [facility] Respiratory rate 2018-12-03 15:02:00 17 /min [facility] Body height 2018-12-03 15:02:00 167.6 cm [facility] Body weight 2018-12-03 15:02:00 111.585 kg [facility] BMI 2018-12-03 15:02:00 39.71 kg/m2 [facility] Systolic blood 2018-12-03 15:02:00 113 mm[Hg] [facility] Diastolic blood 2018-12-03 15:02:00 60 mm[Hg] [facility] Heart rate 2018-12-03 15:02:00 73 /min [facility] Body temperature 2018-12-03 15:02:00 36.89 Radha [facility] Respiratory rate 2018-12-03 15:02:00 17 /min [facility] Body height 2018-12-03 15:02:00 167.6 cm [facility] Body weight 2018-12-03 15:02:00 111.585 kg [facility] BMI 2018-12-03 15:02:00 39.71 kg/m2 [facility] Systolic blood 2018-11-29 17:58:00 136 mm[Hg] [facility] Diastolic blood 2018-11-29 17:58:00 80 mm[Hg] Unive rsity of pressure [facility] Heart rate 2018-11-29 17:58:00 76 /min [facility] Body temperature 2018-11-29 17:58:00 37.06 Radha [facility] Respiratory rate 2018-11-29 17:58:00 16 /min [facility] Body height 2018-11-29 17:58:00 167.6 cm [facility] Body weight 2018-11-29 17:58:00 111.273 kg [facility] BMI 2018-11-29 17:58:00 39.59 kg/m2 [facility] Systolic blood 2018-11-29 17:58:00 136 mm[Hg] Univer [facility]ity of pressure [facility] Diastolic blood 2018-11-29 17:58:00 80 mm[Hg] Unive rsity of pressure [facility] Heart rate 2018-11-29 17:58:00 76 /min [facility] Body temperature 2018-11-29 17:58:00 37.06 Radha [facility] Respiratory rate 2018-11-29 17:58:00 16 /min [facility] Body height 2018-11-29 17:58:00 167.6 cm [facility] Body weight 2018-11-29 17:58:00 111.273 kg [facility] BMI 2018-11-29 17:58:00 39.59 kg/m2 [facility] Systolic blood 2018-11-26 15:17:00 116 mm[Hg] Un[facility] Diastolic blood 2018-11-26 15:17:00 76 mm[Hg] Unive rsity of pressure [facility] Heart rate 2018-11-26 15:17:00 84 /min [facility] Body temperature 2018-11-26 15:17:00 37 Radha [facility] Respiratory rate 2018-11-26 15:17:00 16 /min [facility] Body height 2018-11-26 15:17:00 167.6 cm [facility] Body weight 2018-11-26 15:17:00 109.827 kg [facility] BMI 2018-11-26 15:17:00 39.08 kg/m2 [facility] Systolic blood 2018-11-22 13:11:00 108 mm[Hg] Univer sity of pressure [facility] Diastolic blood 2018-11-22 13:11:00 62 mm[Hg] Unive rsity of pressure [facility] Heart rate 2018-11-22 13:11:00 66 /min [facility] Body temperature 2018-11-22 13:11:00 36.72 Radha [facility] Respiratory rate 2018-11-22 13:11:00 16 /min [facility] Body height 2018-11-22 13:11:00 167.6 cm [facility] Body weight 2018-11-22 13:11:00 111.131 kg [facility] BMI 2018-11-22 13:11:00 39.54 kg/m2 [facility] Heart rate 2018-11-19 20:45:00 72 /min [facility] Oxygen saturation in 2018-11-19 20:15:00 100 /min [facility] Arterial blood by [facility] Pulse oximetry Branch Systolic blood 2018-11-19 17:41:00 135 mm[Hg] Univer [facility]ity of [facility] Diastolic blood 2018-11-19 17:41:00 65 mm[Hg] Unive rsity of [facility] Body temperature 2018-11-19 17:41:00 36.83 Radha Univ ersity of [facility] Respiratory rate 2018-11-19 17:41:00 16 /min [facility] [place] [facility] Body height 2018-11-19 17:41:00 167.6 cm [facility] [place] [facility] Body weight 2018-11-19 17:41:00 109.77 kg [facility] [place] [facility] BMI 2018-11-19 17:41:00 39.06 kg/m2 [facility] Systolic blood 2018-11-19 14:28:00 118 mm[Hg] [facility] Diastolic blood 2018-11-19 14:28:00 64 mm[Hg] Unive [facility] Heart rate 2018-11-19 14:28:00 62 /min [facility] Body temperature 2018-11-19 14:28:00 36.89 Radha [facility] Respiratory rate 2018-11-19 14:28:00 16 /min [facility] Body height 2018-11-19 14:28:00 167.6 cm [facility] Body weight 2018-11-19 14:28:00 109.941 kg [facility] BMI 2018-11-19 14:28:00 39.12 kg/m2 [facility] [place] [facility] Systolic blood 2018-11-15 19:28:00 123 mm[Hg] [facility] Diastolic blood 2018-11-15 19:28:00 68 mm[Hg] [facility]ive [facility] Heart rate 2018-11-15 19:28:00 73 /min [facility] Body temperature 2018-11-15 19:28:00 36.89 Radha [facility] Respiratory rate 2018-11-15 19:28:00 16 /min [facility] Body height 2018-11-15 19:28:00 167.6 cm [facility] Body weight 2018-11-15 19:28:00 110.309 kg [facility] [place] [facility] BMI 2018-11-15 19:28:00 39.25 kg/m2 [facility] Systolic blood 2018-11-12 15:53:00 102 mm[Hg] [facility] Diastolic blood 2018-11-12 15:53:00 64 mm[Hg] [facility] Heart rate 2018-11-12 15:53:00 65 /min [facility] [place] [facility] Body temperature 2018-11-12 15:53:00 37.39 Radha [facility] Respiratory rate 2018-11-12 15:53:00 16 /min [facility] Body height 2018-11-12 15:53:00 167.6 cm [facility] Body weight 2018-11-12 15:53:00 109.941 kg [facility] BMI 2018-11-12 15:53:00 39.12 kg/m2 [facility] Procedures Procedure Date / Time Performing Clinician Source Performed US LOWER EXTREMITY VEIN 2019-01-01 07:50:21 Kortney [facility] WITH COMPRESSION BILATERAL [facility] (ONLY FOR RULE OUT DVT) [facility] URINALYSIS 2019-01-01 04:17:00 [facility] PROTEIN CREAT RATIO URINE 2019-01-01 04:17:00 Alo Moses [facility] SGOT (ASPARTATE AMINO 2019-01-01 04:16:00 Alo Moses [facility] TRANSFER) Medical Branch CREATININE 2019-01-01 04:16:00 [facility] ALANINE AMINO 2019-01-01 04:16:00 [facility] Medical Branch LACTATE DEHYDROGENASE 2019-01-01 04:16:00 [facility]ID 2019-01-01 04:16:00 [facility] CBC WITH DIFFERENTIAL 2019-01-01 04:16:00 Josué [facility] POCT URINALYSIS 2018-12-31 20:24:00 Max Velarde [facility] URINALYSIS 2018-12-29 01:39:00 Alla Alford [facility] LIPASE 2018-12-29 01:37:00 Alla Alford [facility] MAGNESIUM 2018-12-29 01:37:00 Alla Alford [facility] COMP. METABOLIC PANEL 2018-12-29 01:37:00 [facility] ([id number]) [facility] CBC WITH DIFFERENTIAL 2018-12-29 01:37:00 Alla Alford [facility] PROTHROMBIN TIME / INR 2018-12-29 01:37:[address] [facility] N-TERMINAL PRO-BNP 2018-12-29 01:37:00 Alla Alford [facility] NOTICE OF PRIVACY PRACTICES 2018-12-29 00:16:20 Doctor Jessica willis [facility] CONSENT/REFUSAL FOR 2018-12-29 00:16:07 Doctor Dick [facility] DIAGNOSIS AND TREATMENT [place] [facility] POCT URINALYSIS 2018-12-28 18:48:00 Max Velarde [facility] CBC WITH DIFFERENTIAL 2018-12-24 09:13:00 Gilson Upton [facility] CBC WITH DIFFERENTIAL 2018-12-22 15:41:00 Bob La [facility] LAB ON A CART 2018-12-21 20:22:00 Elizabeth Mccray [facility] THROMBELASTOGRAPH CITRATED [facility] KAOLIN W/HEPARIN CBC WITH DIFFERENTIAL 2018-12-21 16:10:00 Maicol Ramírez [facility] VENOUS CORD GAS 2018-12-21 16:07:00 Dl [facility] TRANSFUSE PLATELETS 2018-12-21 15:07:[address] [facility] TRANSFUSE PLATELETS 2018-12-21 15:04:[address] [facility] SECTION 2018-12-21 14:43:00 Jesse Woods [facility] PREPARE PLATELETS 2018-12-21 13:34:52 Luca Smallwood [facility] PREPARE PLATELETS 2018-12-21 13:34:51 Luca Smallwood [facility] LAB ON A CART 2018-12-21 13:18:00 Marcela Lujan [facility] THROMBELASTOGRAPH CITRATED [facility] KAOLIN CBC WITH DIFFERENTIAL 2018-12-21 03:45:00 Alison Zamorano [facility] TYPE AND SCREEN 2018-12-21 03:24:00 Antonio Sharma [facility] RHO (D) IMMUNE GLOBULIN 2018-12-21 03:24:00 Gilson Upton [facility] HEPATITIS B SURFACE ANTIGEN 2018-12-21 03:16:00 Alicia Sharma [facility] GALV ONLY - SYPHILIS 2018-12-21 03:16:00 Antonio Sharma [facility] IGG/IGM [facility] NON-STRESS TEST 2018-12-20 16:12:[address] [facility] POCT URINALYSIS 2018-12-20 15:39:00 Max Velarde [facility] NON-STRESS TEST 2018-12-18 19:31:[address] [facility] POCT URINALYSIS 2018-12-18 18:02:00 Max Velarde [facility] NON-STRESS TEST 2018-12-13 19:28:18 Michael Leach [facility] NO SHOW OR MISSED 2018-12-13 18:26:00 Doctor Unassigned, [facility] APPOINTMENT POLICY [place] [facility] ACKNOWLEDGEMENT SECOND AND THIRD TRIMESTER 2018-12-13 18:14:00 [facility] 2018-12-10 16:53:[address] [facility] POCT URINALYSIS 2018-12-10 15:44:00 Allie Miller [facility] NON-STRESS TEST 2018-12-06 21:10:[address] [facility] CBC WITH DIFFERENTIAL 2018-12-06 16:40:[address] [facility] GROUP B STREPTOCOCCUS BY 2018-12-06 16:40:00 Marycruz Quevedo [facility] POCT URINALYSIS 2018-12-06 15:35:00 Allie Miller [facility] CONSENT/REFUSAL FOR 2018-12-03 18:58:48 Doctor Unassigned, [facility] DIAGNOSIS AND TREATMENT [place] [facility] [place] ASSIGNMENT OF BENEFITS 2018-12-03 18:58:36 Doctor [facility]igned, [facility] [place] [facility] [place] NON-STRESS TEST 2018-11-29 18:37:[address] [facility] POCT URINALYSIS 2018-11-29 17:59:00 AkinAllie ibarra C [facility] NON-STRESS TEST 2018-11-26 17:49:39 Inga [facility] POCT URINALYSIS 2018-11-26 15:18:00 Allie Miller C [facility] SECOND AND THIRD TRIMESTER 2018-11-22 16:13:00 Mila Ferguson [facility] NON-STRESS TEST 2018-11-22 14:36:[address] [facility] POCT URINALYSIS 2018-11-22 13:14:00 AkinJignesh ibarrailola C [facility] CONSENT/REFUSAL FOR 2018-11-19 17:28:50 Doctor Unassigned, [facility] DIAGNOSIS AND TREATMENT [place] [facility] ASSIGNMENT OF BENEFITS 2018-11-19 17:28:38 Doctor Unassigned, Un [facility] Name [facility] NON-STRESS TEST 2018-11-19 14:56:33 Alison Reis [facility] POCT URINALYSIS 2018-11-19 14:29:00 AkinJignesh ibarrailola C [facility] NON-STRESS TEST 2018-11-15 20:16:30 Modesto De La Rosa [facility] POCT URINALYSIS 2018-11-15 19:31:00 Akinstacey Allie C [facility] NON-STRESS TEST 2018-11-12 17:13:21 Inga [facility] POCT URINALYSIS 2018-11-12 15:55:00 Akinsihuma Allie C [facility] Encounters Start End Encounter Admission Attending Care Care Encounter Source Date/Time Date/Time Type Type Clinicians Facility Department ID 2020-05-03 Inpatient UR AMELIA CumminsWH INTE [id number] [facility] 03:53:00 Casey [id number] [facility] 2020-08-25 2020-08-25 Outpatient E [facility] [id number] Memoria 02:37:00 02:37:00 l Gerardo Oleary [facility] 2020-07-06 2020-07-06 Patient Chato [facility] 1.2.840.114 [id number] Univers 00:00:00 00:00:00 Outreach Bird PRIMARY 350.1.13.10 i ty of [facility] 4.2.7.2.686 [place] MARQUITA [id number] Md dical [address] Branch 2019-07-13 2019-07-13 Nurse JARAD Douglas 1.2.840.114 [id number] 00:00:00 00:00:00 Triage Aracelis WOOD [address].13.[address]686 [id number] 019 2019-07-13 2019-07-13 JARAD Santamaria 1.2.840.114 [id number] 00:00:00 00:00:00 Triage Melinda WOOD 350.1.13.10 [facility] 4.2.7.2.686 [id number] 019 2019-07-13 2019-07-13 Nurse JARAD Douglas 1.2.840.114 [id number] Univers 00:00:00 00:00:00 Triage Aracelis WOOD 350.1.13.10 it y of [facility] 4.2.7.2.686 Eladio as [id number] [facility] frank 019 Branch 2019-07-13 2019-07-13 JARAD Santamaria 1.2.840.114 [id number] Univers 00:00:00 00:00:00 Triage Melinda WOOD 350.1.13.10 i ty of [facility] 4.2.7.2.686 Eladio as [id number] [facility] frank 019 Branch 2018-12-31 2019-01-01 [facility] 1Adrian2.221.958 [id number] 21:55:55 14:19:00 Encounter Jesse WOOD 350.1.13.10 [place] 4.2.7.2.686 [id number] 2018-12-31 2019-01-01 [facility] Danielnoahrenata JARAD 1.2.249.277 [id number] Univers 21:55:55 14:19:00 Encounter Jesse Monroe [place] 350.1.13.10 ity of [place] [id number] [address] 2018-12-31 2018-12-31 Nurse Visit, [facility] 1.2.840.114 [id number] 15:10:27 15:53:28 [facility] FLIGHT TEST SUPERVISOR 350.1.13.10 Nurse [facility] 4.2.7.2.686 MATERNAL [id number] & CHILD 107 [facility] 2018-12-31 2018-12-31 [facility] Nurse [facility] 1.2 .840.114 [id number] [facility] 15:10:27 15:53:28 Visit Allie Miller FLIGHT TEST SUPERVISOR 350.1.13. 10 ity of [facility] 4.2.7.2.686 Eladio as MATERNAL [id number] Med ical & CHILD 107 [facility] 2018-12-31 2018-12-31 Telephone Roger CTBARNEY 1.2.840.114 [id number] 00:00:00 00:00:00 Rimma Guadalupe FLIGHT TEST SUPERVISOR 350.1.13.10 [facility] 4.2.7.2.686 MATERNAL [id number] & CHILD 107 [facility] 2018-12-31 2018-12-31 Telephone JARAD Upton 1.2.840.114 [id number] 00:00:00 00:00:[address] [facility] 4.2.7.2.686 [id number] 013 2018-12-31 2018-12-31 Telephone Roger [facility] 1.2.840.114 [id number] [facility] 00:00:00 00:00:00 Rimma Guadalupe FLIGHT TEST SUPERVISOR 350.1.13.10 it y of REGIONAL 4.2.7.2.686 Eladio as MATERNAL [id number] Med ical & CHILD 107 [facility] 2018-12-31 2018-12-31 Telephone JARAD Upton 1.2.840.114 [id number] Univers 00:00:00 00:00:00 Gilson WOOD 350.1.13.10 i ty [facility] 4.2.7.2.686 Eladio as [id number] [facility] 013 [place] 2018-12-28 2018-12-29 Emergency [facility] 1.2.343.968 [id number] 19:29:15 00:59:00 Alla [place] 350.1.13.10 [place] 4.2.7.2.686 [place] [id number] [facility] 2018-12-28 2018-12-29 Emergency [facility] 1.2.041.319 [id number] [facility] 19:29:15 00:59:00 Ctjennifer Danny Wilmer 350.1.13.10 ity [facility] 4.2.7.2.686 [facility] [id number] [address] 2018-12-28 2018-12-28 Nurse Visit, [facility] 1.2.840.114 [id number] 12:55:55 13:47:08 Visit Jerel FLIGHT TEST SUPERVISOR 350.1.13.10 Nurse [facility] 4.2.7.2.686 MATERNAL [id number] & CHILD [address] [place] [address] 2018-12-28 2018-12-28 [facility] 1.2 .840.114 [id number] [facility] 12:55:55 13:47:08 Visit Max Velarde FLIGHT TEST SUPERVISOR 350.1.13.10 ity [facility] 4.2.7.2.686 Eladio as MATERNAL [id number] [facility] ical & CHILD [address] [place] [address] 2018-12-20 2018-12-24 [facility] JARAD Lizama 1.2.840.114 [id number] 18:42:00 13:40:00 Encounter Ree WOOD 350.1.13.10 ANN[place] 4.2.7.2.686 [id number] 2018-12-20 2018-12-24 [facility] JARAD Lizama 1.2.840.114 [id number] Univers 18:42:00 13:40:00 Encounter Ree WOOD 350.1.13.10 ity of [place] 4.2.7.2.686 [place] [id number] [facility] 070 [place] 2018-12-20 2018-12-20 Cost Accounting Manager Ultrasound, [facility] 1.2.840.114 [id number] 11:12:37 11:42:37 Visit Ang-Mfm FLIGHT TEST SUPERVISOR 350.1.13.10 REGIONAL 4.2.7.2.686 MATERNAL [id number] & CHILD 369 [facility] 2018-12-20 2018-12-20 Cost Accounting Manager Ultrasound, Ang-Mfm [facility] 1.2 .840.114 [id number] [facility] 11:12:37 11:42:37 Visit Phyllis Mila Soraida FLIGHT TEST SUPERVISOR 350.1.13.10 ity of Jesse Woods REGIONAL 4.2.7.2.686 [place] MATERNAL [id number] [facility] ical & CHILD 369 [facility] 2018-12-20 2018-12-20 Routine Risk, [facility] 1.2.840.114 [id number] 10:20:16 11:05:03 Ang-Rmchp-N FLIGHT TEST SUPERVISOR 350.1.13.10 Visit p/High REGIONAL 4.2.7.2.686 MATERNAL [id number] & CHILD 107 [facility] 2018-12-20 2018-12-20 Routine Risk, Sle-Exjas-Sg/High [facility] 1. 2.840.114 [id number] Univers 10:20:16 11:05:03 Mila Ferguson FLIGHT TEST SUPERVISOR 350.1.13.10 ity of Visit REGIONAL 4.2.7.2.686 Eladio as MATERNAL [id number] [facility] ical & CHILD 107 [facility] 2018-12-18 2018-12-18 Routine Velarde, [facility] 1.2.840.114 [id number] 12:50:29 14:00:55 Roshunda R FLIGHT TEST SUPERVISOR 350.1.13.10 Visit REGIONAL 4.2.7.2.686 MATERNAL [id number] & CHILD 107 [facility] 2018-12-18 2018-12-18 Routine Syd [facility] 1.2.840.114 [id number] Univers 12:50:29 14:00:55 Roshunda R FLIGHT TEST SUPERVISOR 350.1.13.10 ity of Visit [facility] 4.2.7.2.686 Eladio as MATERNAL [id number] Med ical & CHILD 107 [facility] 2018-12-13 2018-12-13 Routine [facility] UNIVERSIT 1.2.840.114 [id number] 13:28:19 14:24:11 Resident Y HEALTH 350.1.13.10 Visit [facility] 4.2.7.2.686 [id number] 2018-12-13 2018-12-13 Routine [facility] Resident UNIVERSIT 1.2.8 40.114 [id number] Univers 13:28:19 14:24:11 Inga Moore [facility] 350.1. 13.10 ity of [facility] 4.2.7.2.686 Chacorta [place] [id number] [address] 2018-12-13 2018-12-13 Cost Accounting Manager 2, [facility] UNIVERSIT 1.2.840.11 [id number] 12:48:28 13:23:20 Visit [facility] HEALTH 350.1.13.10 CLINICS 4.2.7.2.686 [id number] 104 2018-12-13 2018-12-13 Cost Accounting Manager 2, [facility] Room UNIVERSIT 1 .2.840.114 [id number] [facility] 12:48:28 13:23:20 Visit Inga Moore [facility] 350.1.1 3.10 ity of [facility] 4.2.7.2.686 [place] [id number] [address] 2018-12-13 2018-12-13 Orders Doctor ABRAHAM 1.2.840.114 [id number] 00:00:00 00:00:00 Only Unassigned, [place] 350.1.13.10 [place] [facility] 4.2.7.2.686 [id number] 009 2018-12-13 2018-12-13 Orders Doctor JARAD 1.2.840.114 [id number] Univers 00:00:00 00:00:00 Only Unassigned, [place] 350.1.13.10 ity of [place] [facility] 4.2.7.2.686 Eladio as [phone] [facility] 009 Branch 2018-12-11 2018-12-11 Case JARAD Chris 1.2.840.114 [id number] 00:00:00 00:00:00 Management Ruba [place] 350.1.13.10 HOSPITAL 4.2.7.2.686 [id number] 2018-12-11 2018-12-11 Case JARAD Chris 1.2.840.114 [id number] Univers 00:00:00 00:00:00 Management Ruba [place] 350.1.13.10 ity of HOSPITAL 4.2.7.2.686 Eladio as [id number] [address] 2018-12-10 2018-12-10 Routine Faculty, [facility] 1.2.840.114 [id number] 10:35:35 11:46:44 Ad [facility] FLIGHT TEST SUPERVISOR 350.1.13.[address] [facility] 4.2.7.2.686 MATERNAL [id number] & CHILD 107 [facility] 2018-12-10 2018-12-10 Routine Faculty, [facility] 1.2 .840.114 [id number] [facility] 10:35:35 11:46:44 Jesse Woods FLIGHT TEST SUPERVISOR 350.1.13.10 ity of Visit REGIONAL 4.2.7.2.686 Eladio as MATERNAL [id number] Med ical & CHILD 107 [facility] 2018-12-06 2018-12-06 Cost Accounting Manager Ultrasound, [facility] 1.2.840.114 [id number] 11:40:06 12:10:06 Visit [facility] FLIGHT TEST SUPERVISOR 350.1.13.10 [facility] 4.2.7.2.686 MATERNAL [id number] & CHILD 369 [facility] 2018-12-06 2018-12-06 Cost Accounting Manager Ultrasound, [facility] 1.2 .840.114 [id number] Univers 11:40:06 12:10:06 Visit Marycruz Quevedo FLIGHT TEST SUPERVISOR 350.1.13.10 ity of [facility] 4.2.7.2.686 Eladio as MATERNAL [id number] Med ical & CHILD 369 [facility] 2018-12-06 2018-12-06 Routine Risk, [facility] 1.2.840.114 [id number] 10:02:15 11:39:46 Ang-Rmchp-N FLIGHT TEST SUPERVISOR 350.1.13.10 Visit p/High [facility] 4.2.7.2.686 MATERNAL [id number] & CHILD [address] [place] [address] 2018-12-06 2018-12-06 Routine Risk, Ofs-Buhzb-Ps/High [facility] 1. 2.840.114 [id number] [facility] 10:02:15 11:39:46 Marycruz Quevedo FLIGHT TEST SUPERVISOR 350.1.13.10 ity of Visit [facility] 4.2.7.2.686 Eladio as MATERNAL [id number] [facility] ical & CHILD [address] [place] [address] 2018-12-03 2018-12-03 [facility] Lorrie Olmos [facility] 1.2.840.114 [id number] 13:57:00 16:45:00 Encounter Damien Lopez 350.1.13.10 [place] 4.2.7.2.686 [place] [id number] [facility] 2018-12-03 2018-12-03 [facility] Lorrie Olmos [facility] 1.2.840.114 [id number] [facility] 13:57:00 16:45:00 Encounter Damien Lopez 350.1.13.10 ity of [place] 4.2.7.2.686 [facility] [id number] [address] 2018-12-03 2018-12-03 Routine Faculty, [facility] 1.2.840.114 [id number] 09:27:42 10:36:46 Ang Rmchp FLIGHT TEST SUPERVISOR 350.1.13.[address] [facility] 4.2.7.2.686 MATERNAL [id number] & CHILD [address] [place] [address] 2018-12-03 2018-12-03 Routine Faculty, Ang Rmchp [facility] 1.2 .840.114 [id number] Univers 09:27:42 10:36:46 Kyle Cordero FLIGHT TEST SUPERVISOR 350.1.13. 10 ity of Visit REGIONAL 4.2.7.2.686 Eladio as MATERNAL [id number] [facility] ical & CHILD 107 [facility] 2018-11-29 2018-11-29 Routine Risk, [facility] 1.2.840.114 [id number] 12:45:37 13:38:16 Ang-Rmchp-N FLIGHT TEST SUPERVISOR 350.1.13.10 Visit p/High REGIONAL 4.2.7.2.686 MATERNAL [id number] & CHILD [address] [place] [address] 2018-11-29 2018-11-29 Routine Risk, Dhw-Fwkoj-Bl/High [facility] 1. 2.840.114 [id number] Univers 12:45:37 13:38:16 Mila Ferguson FLIGHT TEST SUPERVISOR 350.1.13.10 ity of Visit REGIONAL 4.2.7.2.686 Eladio as MATERNAL [id number] [facility] ical & CHILD [address] [place] [address] 2018-11-29 2018-11-29 Cost Accounting Manager Ultrasound, [facility] 1.2 .840.114 [id number] Univers 11:09:01 11:48:17 Visit Calvin Patel FLIGHT TEST SUPERVISOR 350.1.13.10 ity of REGIONAL 4.2.7.2.686 Eladio as MATERNAL [id number] [facility] ical & CHILD 369 [facility] 2018-11-26 2018-11-26 Routine Faculty, [facility] 1.2 .840.114 [id number] Univers 10:07:03 11:06:11 Inga Moore FLIGHT TEST SUPERVISOR 350.1.1 3.10 ity of Visit REGIONAL 4.2.7.2.686 Eladio as MATERNAL [id number] [facility] ical & CHILD [address] [place] [address] 2018-11-22 2018-11-22 Cost Accounting Manager 5, [facility] Usg Room UNIVERSIT 1 .2.840.114 [id number] Univers 10:44:00 11:48:35 Visit Inga Moore [facility] 350.1.1 3.10 ity of Alison Reis [facility] 4.2.7.2.686 [place] [id number] [facility] [address] [place] 2018-11-22 2018-11-22 Routine Roger [facility] 1.2.599.187 [id number] Univers 08:04:45 09:05:49 Rimma Guadalupe FLIGHT TEST SUPERVISOR 350.1.13.10 i ty of Visit REGIONAL 4.2.7.2.686 Eladio as MATERNAL [id number] [facility] ical & CHILD [address] [place] [address] 2018-11-19 2018-11-19 [facility] Lorrie Olmos [facility] 1.2.840.114 [id number] [facility] 12:24:36 16:05:00 Encounter [facility] 350.1.13.10 ity of [place] 4.2.7.2.686 [facility] [id number] [facility] 083 [place] 2018-11-19 2018-11-19 Routine Faculty, Ad Samson [facility] 1.2 .840.114 [id number] [facility] 09:18:45 10:07:14 Alison Reis FLIGHT TEST SUPERVISOR 350.1.13.10 ity of Visit REGIONAL 4.2.7.2.686 Eladio as MATERNAL [id number] [facility] ical & CHILD [address] [place] [address] 2018-11-15 2018-11-15 Routine Faculty, Ad Beachjayesh [facility] 1.2 .840.114 [id number] [facility] 13:56:25 15:11:31 Modesto De La Rosa FLIGHT TEST SUPERVISOR 350.1.13.10 ity of Visit REGIONAL 4.2.7.2.686 Eladio as MATERNAL [id number] [facility] ical & CHILD [address] [place] [address] 2018-11-14 2018-11-14 Cost Accounting Manager Ultrasound, [facility] 1.2 .840.114 [id number] [facility] 10:38:34 11:32:09 Visit Alison Reis FLIGHT TEST SUPERVISOR 350.1.13.10 ity of REGIONAL 4.2.7.2.686 Eladio as MATERNAL [phone] [facility] ical & CHILD [address] [facility] 2018-11-12 2018-11-12 Routine Faculty, dA [facility] 1.2 .840.114 [id number] [facility] 10:38:07 12:09:10 TeresaInga FLIGHT TEST SUPERVISOR 350.1.1 3.10 ity of Visit [facility] 4.2.7.2.686 Eladio as MATERNAL [phone] Med ical & CHILD 107 [facility] 2018-11-01 2018-11-01 Case Jose C, [facility] [id number] [facility] 00:00:00 00:00:00 Management Vidhi Herberth [facility] 350.1.13.10 ity of CLINICS 4[place]2.7.2.[place] [id number] [facility] [address] [place] Results Test Description Test Time Test Comments Results Result [facility] e Comments - DUP VEIN SAMANTHA 2020-05-04 08:04:00 [facility] [facility] 1985 Sex: F Patient Name: BRI CAMPBELL Unit No: [id number] EXAMS: CPT CODE: [id number] DUP VEIN SAAMNTHA 30384 BILATERAL LOWER EXTREMITY DUPLEX VENOUS DOPPLER ULTRASOUND, [...] LILLI MCGOWAN RDMS, RVT Probe: Trnscrbd D/ (803) [id number] Orig Print D/T: S: 05/04/2020 (806) [facility] NAME: BRI CAMPBELL Radiology Department PHYS: Magdalena Borrego MD [address] : 1985 AGE: 34 SEX: F [place] [address] LOC: ROMAIN A PHONE #: [phone] EXAM DATE: 05/04/2020 STATUS: ADM IN FAX #: [phone] RAD NO: Page 1 Signed Report Patient Name: BRI CAMPBELL Unit No: [id number] EXAMS: CPT CODE: [id number] DUP VEIN SAMANTHA 10683 <Continued> [facility] NAME: BRI CAMPBELLCHALK HILL Radiology Department PHYS: Magdalena Borrego MD [address] : 1985 AGE: 34 SEX: F [place] [address] LOC: TANGELA4 A PHONE #: [phone] EXAM DATE: 05/04/2020 STATUS: ADM IN FAX #: [phone] RAD NO: Page 2 Signed Report CBC [...] 77 K/mm3 133-385 LL RESULTS CALLED TO ROSARIO JED K & CONFIRMED? Y.BY JAD 05/04/20 0456Re sults verified by rep eat analysis IMMATURE PLATELET FRACTION (test 8.4 % 0.0-10.8 N code = IPF) MEAN PLATELET VOLUME (test code = 12.9 fl 9.1-12.7 H MPV) MANUAL DIFF REQUIRED (test code = YES MDIFF) RBC MORPHOLOGY REQUIRED (test NORMAL NORMAL code = RBCM) PLATELET MORPHOLOGY REQUIRED ABNORMAL NORMAL (test code = PLTMR) WBC [id number] 04:57:00 Test Item Value Reference Range Interpretation [...] NORMAL A code = PLTMORPH) CBC W/AUTO [id number] 04:56:00 Test Item Value Reference Range Interpretation [...] PLT) LOVE.READ JED K & CONFIRMED? Y.BY F.LAB. 0456Results verified by rep eat analysis IMMATURE PLATELET 8.4 % 0.0-10.8 N FRACTION (test code = IPF) MEAN PLATELET VOLUME 12.9 fl 9.1-12.7 H (test code = MPV) MANUAL DIFF REQUIRED YES (test code = MDIFF) RBC MORPHOLOGY REQUIRED NORMAL NORMAL (test code = RBCM) PLATELET MORPHOLOGY ABNORMAL NORMAL REQUIRED (test code = PLTMR) WBC [id number] 04:56:00 Test Item Value Reference Range Interpretation Comments SEGMENTED NEUTROPHILS (test code = SEG) % 56.5-79.4 LYMPHOCYTE (test code = LYMPH) % 20-40 CBC W/AUTO [id number] 04:56:00 Test Item Value Reference Range Interpretation [...] PLT) READ JED K & CONFIRMED? Y.BY F.LAB. 0456Results verified by rep eat analysis IMMATURE PLATELET 8.4 % 0.0-10.8 N FRACTION (test code = IPF) MEAN PLATELET VOLUME 12.9 fl 9.1-12.7 H (test code = MPV) MANUAL DIFF REQUIRED YES (test code = MDIFF) RBC MORPHOLOGY REQUIRED NORMAL NORMAL (test code = RBCM) PLATELET MORPHOLOGY ABNORMAL NORMAL REQUIRED (test code = PLTMR) WBC [id number] 04:56:00 Test Item Value Reference Range Interpretation Comments SEGMENTED NEUTROPHILS (test code = SEG) % 56.5-79.4 LYMPHOCYTE (test code = LYMPH) % 20-40 COMPREHENSIVE METABOLIC [id number] 04:39:00 Test Item Value Reference Range Interpretation [...] 46-116 N code = ALKP) CBC W/AUTO [id number] 19:13:00 Test Item Value Reference Range Interpretation Comments WHITE BLOOD CELL 5.9 K/mm3 6.6-12.1 L (test code = WBC) RED BLOOD CELL (test 2.60 M/mm3 3.45-5.01 L code = RBC) HEMOGLOBIN (test 6.9 g/dL 10.7-13.9 L RESULTS FERMIN IFIED BY code = HGB) REPEAT ANALYSIS RESULTS CALLED TO GIANNA VERDUGOREAD BACK & CONFIRME D? Y.BY FAdrianLAB.[facility] 05/03. HEMATOCRIT [...] PLT) SUREKHA.READ BA CK & CONFIRMED? Y.BY [facility] [place] IMMATURE [...] REQUIRED (test code PRESENT = PLTMR) LACTIC [id number] 19:05:00 Test Item Value Reference Range Interpretation Comments LACTIC ACID (test 4.5 MMOL/L 0.5-2.2 HH RESULTS CA LLED TO code = LACT) READ BACK & CONFIRMED? YES. BY GlenAS04 04/17. COMPREHENSIVE METABOLIC [id number] 19:01:00 Test Item Value Reference Range Interpretation [...] 60 units/L 46-116 code = ALKP) PROTHROMBIN [id number] 19:01:00 Test Item Value Reference Range Interpretation Comments PROTHROMBIN TIME PATIENT (test code 13.3 secs 10.4-12.4 H = PTP) THROMBOPLASTIN TIME [id number] 19:01:00 Test Item Value Reference Range Interpretation Comments THROMBOPLASTIN TIME PARTIAL (test 20.6 secs 22-38 L code = PTT) [id number] 19:01:00 Test Item Value Reference Range Interpretation Comments FIBRINOGEN (test code = FIB) 141 mg/dL 309-518 L UA RFLX MICR CULT IF [id number] 12:47:00 Test Item Value Reference Range Interpretation [...] RiskForSepsis-no oth srcSpecimen Description: CLEAN CATCHUR HCG [id number] 12:47:00 Test Item Value Reference Range Interpretation [...] Description: CLEAN CATCHUA RFLX MICR CULT IF [id number] 12:36:00 Test Item Value Reference Range Interpretation [...] RiskForSepsis-no oth srcSpecimen Description: CLEAN CATCHUR HCG [id number] 12:36:00 Test Item Value Reference Range Interpretation [...] culture: RiskForSepsis-no oth srcSpecimen Description: CLEAN CATCHPROTHROMBIN [id number] 10:14:00 Test Item Value Reference Range Interpretation Comments PROTHROMBIN TIME PATIENT (test code 13.3 secs 10.4-12.4 H = PTP) THROMBOPLASTIN TIME [id number] 10:14:00 Test Item Value Reference Range Interpretation Comments THROMBOPLASTIN TIME PARTIAL (test 19.4 secs 22-38 L code = PTT) [id number] 10:14:00 Test Item Value Reference Range Interpretation Comments FIBRINOGEN (test code = FIB) 102 mg/dL 309-518 L COMPREHENSIVE METABOLIC [id number] 09:54:00 Test Item Value Reference Range Interpretation [...] units/L 46-116 N code = ALKP) HGB [id number] 06:49:00 Test Item Value Reference Range Interpretation Comments HEMOGLOBIN (test code = 4.5 g/dL 10.7-13.9 LL RESU LTS CALLED TO HGB) DAY.READ BACK & CONFIRMED? YES. BY F.LAB.IR1 05/03 0649.Results ve rified by repeat mindi sis HEMATOCRIT (test code = 16.2 % 32.1-42.1 LL RESU LTS CALLED TO HCT) DAY.READ BACK & CONFIRMED? YES. BY F.LAB.IR1 05/03 0649.Results ve rified by repeat mindi sis US LOWER EXTREMITY VEIN WITH COMPRESSION BILATERAL (ONLY FOR RULE OUT DVT) 2019-01-01 13:17:23 No evidence of deep venous thrombosis in the bilateral lower extremity. IRosa MD., have reviewed this study and agree with the abovereport.LOWER EXTREMITY DOPPLER ULTRASOUND HISTORY:?rule out DVT Patient POD 10 with thromboasthenia, bilateral lowerextremity swelling worse on the left with redness and +ve grover sign. FINDINGS: The bilateral common femoral, great saphenous, proximal, middle, and distalsuperficial femoral veins as well as the popliteal veins exhibit normalflow, are fully compressible, and augment normally.? [facility], Radiant Results Inft User - 01/01/2019 8:17 AM CDTLOWER E XTREMITY DOPPLER ULTRASOUNDHISTORY: rule out DVT Patient POD 10 with thromboasthenia, bilateral lowerextremity swelling worse on the left with redness and +ve grover sign.FINDINGS: The bilateral common femoral, great saphenous, proximal, middle, and distalsuperficial femoral veins as well as the popliteal veins exhibit normalflow, are fully compressible, and augment normally. IMPRESSION No evidence of deep venous thrombosis in the bilateral lower extremity. I, Amos Forrest MD., have reviewed this study and agree with the abovereport.[facility] TexasProtein CREAT Ratio Urine [id number] 06:35:00 Test Item Value Reference Range Interpretation Comments T. PROT U (test code = 2888-6) 11 mg/dL CREAT U (test code = 3910507313) 153.3 mg/dL Protein/Creatinine Ratio Urine 0.0-2.0 (test code = 4179988313) [facility] TexasUric Acid [id number] 05:37:00 Test Item Value Reference Range Interpretation Comments URIC ACID (test code = 6123416671) 8.2 mg/dL 2.9-6 H Lab Interpretation (test code = Abnormal 21815-1) [facility] TexasAlanine Amino Transferase (SGPT)2019-01-01 05:37:00 Test Item Value Reference Range Interpretation Comments ALT(SGPT) (test code = 9707546687) 21 U/L 9-51 Lab Interpretation (test code = Normal 21530-4) [facility] TexasLactate [id number] 05:37:00 Test Item Value Reference Range Interpretation Comments LDH (test code = 8825058799) 781 U/L 300-600 H Lab Interpretation (test code = Abnormal 65896-6) [facility] TexasSerum [id number] 05:25:00 Test Item Value Reference Range Interpretation Comments CREATININE (test code 0.62 mg/dL 0.5-1.04 = 0124009907) eGFR Calculation mL/min/1.73m2 (Non-) (test code = 0269885941) eGFR Calculation mL/min/1.73m2 () (test code = 2667321831) MICKY (test code = MICKY) Association of Glomerular Filtration Rate (GFR) and Staging of Kidney Disease*+ ---------+ --------+ +| GFR (mL/min/1.73 m2)?| With Kidney Damage?|?Without Kidney Damage+ -------+ ------+ ---------+|?>90?|?Stage one?|? Normal?+ --------+ -------+ +|?60-89?|?St age two?|? Decreased GFR? + -+ + ---+|?30-59??|?Stage three?|? Stage three? + -+ + ---+|?15-29?|?Stage four? |? Stage four?+ ------+ -----+ --------+|?<15 (or dialysis)?|?Stage five? |? Stage five?+ ------+ -----+ --------+*Each stage assumes the associated GFR level has been in effect for at least three months.?Stages 1 to 5, with or without kidney disease, indicate chronic kidney disease.Notes: Determination of stages one and two (with eGFR >59mL/min/1.73 m2) requires estimation of kidney damage for at least three months as defined by structural or functional abnormalities of the kidney, manifested by either:Pathological abnormalities or Markers of kidney damage (including abnormalities in the composition of the blood or urine or abnormalities in imaging tests). [facility] TexasSGOT (Asparate Amino Transfer)2019-01-01 05:25:00 Test Item Value Reference Range Interpretation Comments AST(SGOT) (test code = 1022268867) 30 U/L 13-40 Lab Interpretation (test code = Normal 54113-6) [facility] TexasUrinalysis2019-09-17 04:46:00 Test Item Value Reference Range Interpretation Comments APPEARANCE (test code = Clear Clear 1058848301) COLOR (test code = Yellow Yellow 0376347047) PH (test code = 4.8-8.0 6279513215) SP GRAVITY (test code = 1.003-1.030 4847821187) GLU U QUAL (test code = Normal Normal 4770972621) BLOOD (test code = Negative Negative 7955530968) KETONES (test code = Negative Negative 0943242060) PROTEIN (test code = Negative Negative 2887-8) UROBILIN (test code = Normal Normal 6723283375) BILIRUBIN (test code = Negative Negative 8537901638) NITRITE (test code = Negative Negative 3797167318) LEUK MISBAH (test code = Negative Negative 2248128084) RBC/HPF (test code = See_Comment [Autom ated message] 6222838301) The system [employer] generated this result transmitted ref erence range: 0 - 3 HP F. The reference range was not used to int erpret this result as normal/abnormal . WBC/HPF (test code = See_Comment [Autom ated message] 4979775969) The system [employer] generated this result transmitted ref erence range: 0 - 5 HP F. The reference range was not used to int erpret this result as normal/abnormal . BACTERIA (test code = Negative Negative 6044367691) MUCOUS (test code = Slight Negative LPF A 7247314435) SQ EPITH (test code = See_Comment H [Auto mated message] 0217194248) The system [employer] generated this result transmitted ref erence range: <=2 HPF. The reference range was not used to int erpret this result as normal/abnormal . HYAL CAST (test code = See_Comment H [Aut omated message] 1486940587) The system [employer] generated this result transmitted ref erence range: <=2 LPF. The reference range was not used to int erpret this result as normal/abnormal . Lab Interpretation (test Abnormal code = 45554-5) [facility] WITH [id number] 04:31:00 Test Item Value Reference Range Interpretation Comments WBC (test code = See_Comment [Automated 6690-2) message] The sy stem which generated this result transmitted reference range : 4.30 - 11.10 10*3/?L. The reference range was not used to interpret this result as normal/abnormal . RBC (test code = See_Comment L [Automated 789-8) message] The sy stem which generated this result transmitted reference range : 3.93 - 5.25 10*6/?L. The reference range was not used to interpret this result as normal/abnormal . HGB (test code = 10.1 g/dL 11.6-15 L 718-7) HCT (test code = 33.2 % 35.7-45.2 L 4544-3) MCV (test code = 93.5 fL 80.6-95.5 787-2) MCH (test code = 28.5 pg 25.9-32.8 785-6) MCHC (test code = 30.4 g/dL 31.6-35.1 L 786-4) RDW-SD (test code = 50.6 fL 39-49.9 H 62664-8) RDW-CV (test code = 14.8 % 12-15.5 788-0) PLT (test code = See_Comment [Automated 777-3) message] The sy stem which generated this result transmitted reference range : 166 - 358 10*3/ ?L. The reference r susan was not used to interpret this result as normal/abnormal . MPV (test code = 10.6 fL 9.5-12.9 84384-9) NRBC/100 WBC (test See_Comment [Automat ed code = 8490048965) message] The system which generated this result transmitted reference range : 0.0 - 10.0 /100 WBCs. The refer ence range was not u sed to interpret th is result as normal/abnormal . NRBC x10^3 (test code <0.01 See_Comment [Auto mated = 7942314761) message] The s ystem which generated this result transmitted reference range : 10*3/?L. The reference range was not used to interpret this result as normal/abnormal . GRAN MAT (NEUT) % 60.1 % (test code = 770-8) IMM GRAN % (test code 0.70 % = 1079789890) LYMPH % (test code = 18.1 % 736-9) MONO % (test code = 6.1 % 5905-5) EOS % (test code = 14.3 % 713-8) BASO % (test code = 0.7 % 706-2) GRAN MAT x10^3(ANC) 5.24 10*3/uL 1.88-7.09 (test code = 2231594435) IMM GRAN x10^3 (test 0.06 10*3/uL 0-0.06 code = 4291814912) LYMPH x10^3 (test code 1.58 10*3/uL 1.32-3.29 = 731-0) MONO x10^3 (test code 0.53 10*3/uL 0.33-0.92 = 742-7) EOS x10^3 (test code = 1.25 10*3/uL 0.03-0.39 H 711-2) BASO x10^3 (test code 0.06 10*3/uL 0.01-0.07 = 704-7) Lab Interpretation Abnormal (test code = 82404-2) [facility] URINALYSIS W SPECIFIC [id number] 20:25:00 Test Item Value Reference Range Interpretation Comments POCT U SP GRAV (test code = 3255) . 1.005-1.025 POCT PH U (test code = 3254) . 5-8 POCT U LEUK EST (test code = 3263) . Negative - Negative POCT U NIT (test code = 3262) . Negative - Negative POCT U PROT (test code = 3259) Neg Negative - Negative POCT U GLU (test code = 3256) Neg Negative - Negative POCT U KETONE (test code = 3258) . Negative - Negative POCT U UROBILI (test code = 3260) . 0.2-1 POCT U BILI (test code = 3261) . Negative - Negative POCT U BLD (test code = 3257) . Negative - Negative POCT U COLOR (test code = 3266) POCT U APPEAR (test code = 3267) [facility] TexasN-TERMINAL [id number] 02:52:00 Test Item Value Reference Range Interpretation Comments NT-proBNP (test code 423 pg/mL See_Comment H [Autom ated = 2279828361) message] The system which generated this result transmitted reference range : <=125. The reference range was not used to interpret this result as normal/abnormal . MICKY (test code = MICKY) Biotin has been reported to cause a negative bias, interpret results relative to patient's use of biotin. Lab Interpretation Abnormal (test code = 55879-7) [facility] TexasCOMP. METABOLIC PANEL (72388)2018-12-29 02:44:00 Test Item Value Reference Range Interpretation Comments NA (test code = 141 mmol/L 135-145 9943980635) K (test code = 3.8 mmol/L 3.5-5 7726528921) CL (test code = 110 mmol/L 98-108 H 9665886354) CO2 TOTAL (test code = 23 mmol/L 23-31 2581228555) AGAP (test code = 2-16 9597231369) BUN (test code = 12 mg/dL 7-23 5611556363) GLUCOSE (test code = 103 mg/dL 70-110 0924843952) CREATININE (test code = 0.50 mg/dL 0.5-1.04 2241162620) TOTAL BILI (test code = 0.6 mg/dL 0.1-1.5 8978795827) CALCIUM (test code = 8.9 mg/dL 8.6-10.6 1463388406) T PROTEIN (test code = 6.8 g/dL 6.3-8.2 4228165549) ALBUMIN (test code = 3.5 g/dL 3.5-5 5466329762) ALK PHOS (test code = 86 U/L 34-122 6016465358) ALT(SGPT) (test code = 19 U/L 9-51 3484760699) AST(SGOT) (test code = 29 U/L 13-40 6311344209) eGFR Calculation mL/min/1.73m2 (Non-) (test code = 5602267018) eGFR Calculation mL/min/1.73m2 () (test code = 5350459469) MICKY (test code = MICKY) Association of Glomerular Filtration Rate (GFR) and Staging of Kidney Disease*+ + + +| GFR (mL/min/1.73 m2)?| With Kidney Damage?|?Without Kidney Damage+ --------+ --------+ +|?>90?|?S tage one?|? Normal?+ ---------+ ---------+ +|?60-89? |?Stage two?|? Decreased GFR? + --+ --+ ------+|?30-59?|?Stage three?|? Stage three?? + --+ --+ ------+|?15-29?|?Stage four? |? Stage four?+ -------+ -------+ +|?<15 (or dialysis)?|?Stage five? |? Stage five?+ -------+ -------+ +*Each stage assumes the associated GFR level has been in effect for at least three months.?Stages 1 to 5, with or without kidney disease, indicate chronic kidney disease.Notes: Determination of stages one and two (with eGFR >59mL/min/1.73 m2) requires estimation of kidney damage for at least three months as defined by structural or functional abnormalities of the kidney, manifested by either:Pathological abnormalities or Markers of kidney damage (including abnormalities in the composition of the blood or urine or abnormalities in imaging tests). Lab Interpretation Abnormal (test code = 80556-1) [facility] TexasLIPASE2019-09-14 02:44:00 Test Item Value Reference Range Interpretation Comments LIPASE (test code = 2500920721) 89 U/L 0-220 Lab Interpretation (test code = Normal 84723-8) [facility] TexasMAGNESIUM2019-09-14 02:44:00 Test Item Value Reference Range Interpretation Comments MAGNESIUM (test code = 1610703780) 1.5 mg/dL 1.7-2.4 L Lab Interpretation (test code = Abnormal 01134-2) [facility] TexasPROTHROMBIN TIME / [id number] 02:40:00 Test Item Value Reference Range Interpretation Comments PROTIME PATIENT (test See_Comment [Auto mated message] code = 5964-2) The system [employer] generated this result transmitted ref erence range: 12.0 - 1 4.7 Seconds. The re ference range was not u sed to interpret this result as normal/abnor mal. INR (test code = 6301-6) Nor mal INR <1.1; Warfarin Therap eutic range 2.0 to 3. 0 or 2.5 to 3.5, dep ending upon the indica tions. Lab Interpretation (test Normal code = 62767-0) [facility] TexasURINALYSIS2019-09-14 02:37:00 Test Item Value Reference Range Interpretation Comments APPEARANCE (test code = Cloudy Clear A 1888182723) COLOR (test code = Laura Yellow A 9768012202) PH (test code = 4.8-8.0 4388242172) SP GRAVITY (test code = 1.003-1.030 4312305485) GLU U QUAL (test code = Normal Normal 6570387138) BLOOD (test code = 3+ Negative A 0825105341) KETONES (test code = Negative Negative 9669744770) PROTEIN (test code = 100 mg/dL Negative A 2887-8) UROBILIN (test code = 4.0 mg/dL Normal A 9096761811) BILIRUBIN (test code = Negative Negative 5303650626) NITRITE (test code = Negative Negative 4437921829) LEUK MISBAH (test code = 75/uL Negative A 4785191823) RBC/HPF (test code = See_Comment H [Autom ated message] 7561318762) The system [employer] generated this result transmit ramana reference range : 0 - 3 HPF. The refe rence range was not u sed to interpret th is result as normal/abnormal . WBC/HPF (test code = See_Comment H [Autom ated message] 2801583846) The system [employer] generated this result transmit ramana reference range : 0 - 5 HPF. The refe rence range was not u sed to interpret th is result as normal/abnormal . BACTERIA (test code = Moderate Negative A 3227172048) MUCOUS (test code = Marked Negative LPF A 3624941348) SQ EPITH (test code = HPF 4637235469) YEAST BUD (test code = See_Comment H [Aut omated message] 1574953339) The system [employer] generated this result transmit ramana reference range : <=1 HPF. The refere nce range was not u sed to interpret th is result as normal/abnormal . ROSSI EPITH (test code = See_Comment [Aut omated message] 6426428391) The system [employer] generated this result transmit ramana reference range : <=1 HPF. The refere nce range was not u sed to interpret th is result as normal/abnormal . Lab Interpretation (test Abnormal code = 65083-6) [facility] WITH [id number] 02:09:00 Test Item Value Reference Range Interpretation Comments WBC (test code = See_Comment [Automated 6690-2) message] The sy stem which generated this result transmitted reference range : 4.30 - 11.10 10*3/?L. The reference range was not used to interpret this result as normal/abnormal . RBC (test code = See_Comment L [Automated 789-8) message] The sy stem which generated this result transmitted reference range : 3.93 - 5.25 10*6/?L. The reference range was not used to interpret this result as normal/abnormal . HGB (test code = 8.9 g/dL 11.6-15 L 718-7) HCT (test code = 28.8 % 35.7-45.2 L 4544-3) MCV (test code = 94.7 fL 80.6-95.5 787-2) MCH (test code = 29.3 pg 25.9-32.8 785-6) MCHC (test code = 30.9 g/dL 31.6-35.1 L 786-4) RDW-SD (test code = 52.4 fL 39-49.9 H 29446-4) RDW-CV (test code = 15.3 % 12-15.5 788-0) PLT (test code = See_Comment L [Automated 777-3) message] The sy stem which generated this result transmitted reference range : 166 - 358 10*3/ ?L. The reference r susan was not used to interpret this result as normal/abnormal . MPV (test code = 11.3 fL 9.5-12.9 35058-0) NRBC/100 WBC (test See_Comment [Automat ed code = 3560566565) message] The system which generated this result transmitted reference range : 0.0 - 10.0 /100 WBCs. The refer ence range was not u sed to interpret th is result as normal/abnormal . NRBC x10^3 (test code See_Comment [Auto mated = 2705543888) message] The s ystem which generated this result transmitted reference range : 10*3/?L. The reference range was not used to interpret this result as normal/abnormal . GRAN MAT (NEUT) % 70.5 % (test code = 770-8) IMM GRAN % (test code 0.80 % = 7954277369) LYMPH % (test code = 16.6 % 736-9) MONO % (test code = 6.0 % 5905-5) EOS % (test code = 5.8 % 713-8) BASO % (test code = 0.3 % 706-2) GRAN MAT x10^3(ANC) 5.46 10*3/uL 1.88-7.09 (test code = 8185998115) IMM GRAN x10^3 (test 0.06 10*3/uL 0-0.06 code = 3352905159) LYMPH x10^3 (test code 1.28 10*3/uL 1.32-3.29 L = 731-0) MONO x10^3 (test code 0.46 10*3/uL 0.33-0.92 = 742-7) EOS x10^3 (test code = 0.45 10*3/uL 0.03-0.39 H 711-2) BASO x10^3 (test code <0.03 0.01-0.07 = 704-7) Lab Interpretation Abnormal (test code = 63361-3) [facility] URINALYSIS W SPECIFIC [id number] 18:54:00 Test Item Value Reference Range Interpretation Comments POCT U SP GRAV (test code = * 1.005-1.025 3255) POCT PH U (test code = 3254) * 5-8 POCT U LEUK EST (test code = * Negative - Negative 3263) POCT U NIT (test code = 3262) * Negative - Negative POCT U PROT (test code = 3259) Trace Negative - Negative POCT U GLU (test code = 3256) Negative Negative - Negative POCT U KETONE (test code = 3258) * Negative - Negative POCT U UROBILI (test code = * 0.2-1 3260) POCT U BILI (test code = 3261) * Negative - Negative POCT U BLD (test code = 3257) * Negative - Negative POCT U COLOR (test code = 3266) * POCT U APPEAR (test code = 3267) * [facility] TexasRHO (D) IMMUNE [id number] 12:40:02 Test Item Value Reference Range Interpretation Comments RHIG CANDIDATE? No- see comment Patient i s not a (test code = candidate for R [facility]- 5055) Patient is Rh Positive.Perfor med at [facility] Laboratory Services - [facility] Blood [place] [id number] Free: [phone] A No. [id number] [facility] WITH [id number] 09:27:00 Test Item Value Reference Range Interpretation Comments WBC (test code = See_Comment [Automated 1377-2) message] The sy stem which generated this result transmitted reference range : 4.30 - 11.10 10*3/?L. The reference range was not used to interpret this result as normal/abnormal . RBC (test code = See_Comment L [Automated 009-8) message] The sy stem which generated this result transmitted reference range : 3.93 - 5.25 10*6/?L. The reference range was not used to interpret this result as normal/abnormal . HGB (test code = 7.8 g/dL 11.6-15 L 718-7) HCT (test code = 25.2 % 35.7-45.2 L 4544-3) MCV (test code = 95.8 fL 80.6-95.5 H 787-2) MCH (test code = 29.7 pg 25.9-32.8 785-6) MCHC (test code = 31.0 g/dL 31.6-35.1 L 786-4) RDW-SD (test code = 52.0 fL 39-49.9 H 67998-7) RDW-CV (test code = 15.2 % 12-15.5 788-0) PLT (test code = See_Comment L [Automated 777-3) message] The sy stem which generated this result transmitted reference range : 166 - 358 10*3/ ?L. The reference r susan was not used to interpret this result as normal/abnormal . MPV (test code = 10.8 fL 9.5-12.9 46431-1) NRBC/100 WBC (test See_Comment [Automat ed code = 9076962607) message] The system which generated this result transmitted reference range : 0.0 - 10.0 /100 WBCs. The refer ence range was not u sed to interpret th is result as normal/abnormal . NRBC x10^3 (test code <0.01 See_Comment [Auto mated = 1011184048) message] The s ystem which generated this result transmitted reference range : 10*3/?L. The reference range was not used to interpret this result as normal/abnormal . GRAN MAT (NEUT) % 73.9 % (test code = 770-8) IMM GRAN % (test code 0.50 % = 1657366149) LYMPH % (test code = 15.2 % 736-9) MONO % (test code = 7.2 % 5905-5) EOS % (test code = 3.1 % 713-8) BASO % (test code = 0.1 % 706-2) GRAN MAT x10^3(ANC) 5.65 10*3/uL 1.88-7.09 (test code = 3220173072) IMM GRAN x10^3 (test 0.04 10*3/uL 0-0.06 code = 4805191143) LYMPH x10^3 (test code 1.16 10*3/uL 1.32-3.29 L = 731-0) MONO x10^3 (test code 0.55 10*3/uL 0.33-0.92 = 742-7) EOS x10^3 (test code = 0.24 10*3/uL 0.03-0.39 711-2) BASO x10^3 (test code <0.03 0.01-0.07 = 704-7) Lab Interpretation Abnormal (test code = 39910-7) [facility] WITH [id number] 16:03:00 Test Item Value Reference Range Interpretation Comments WBC (test code = See_Comment [Automated 6690-2) message] The sy stem which generated this result transmitted reference range : 4.30 - 11.10 10*3/?L. The reference range was not used to interpret this result as normal/abnormal . RBC (test code = See_Comment L [Automated 789-8) message] The sy stem which generated this result transmitted reference range : 3.93 - 5.25 10*6/?L. The reference range was not used to interpret this result as normal/abnormal . HGB (test code = 9.1 g/dL 11.6-15 L 718-7) HCT (test code = 27.9 % 35.7-45.2 L 4544-3) MCV (test code = 92.1 fL 80.6-95.5 787-2) MCH (test code = 30.0 pg 25.9-32.8 785-6) MCHC (test code = 32.6 g/dL 31.6-35.1 786-4) RDW-SD (test code = 49.8 fL 39-49.9 50213-7) RDW-CV (test code = 15.0 % 12-15.5 788-0) PLT (test code = See_Comment L [Automated 777-3) message] The sy stem which generated this result transmitted reference range : 166 - 358 10*3/ ?L. The reference r susan was not used to interpret this result as normal/abnormal . MPV (test code = 11.2 fL 9.5-12.9 47295-2) NRBC/100 WBC (test See_Comment [Automat ed code = 2473306470) message] The system which generated this result transmitted reference range : 0.0 - 10.0 /100 WBCs. The refer ence range was not u sed to interpret th is result as normal/abnormal . NRBC x10^3 (test code <0.01 See_Comment [Auto mated = 2204275274) message] The s ystem which generated this result transmitted reference range : 10*3/?L. The reference range was not used to interpret this result as normal/abnormal . GRAN MAT (NEUT) % 85.8 % (test code = 770-8) IMM GRAN % (test code 1.10 % = 1199049833) LYMPH % (test code = 6.5 % 736-9) MONO % (test code = 5.1 % 5905-5) EOS % (test code = 1.3 % 713-8) BASO % (test code = 0.2 % 706-2) GRAN MAT x10^3(ANC) 9.20 10*3/uL 1.88-7.09 H (test code = 8963370953) IMM GRAN x10^3 (test 0.12 10*3/uL 0-0.06 H code = 7011239880) LYMPH x10^3 (test code 0.70 10*3/uL 1.32-3.29 L = 731-0) MONO x10^3 (test code 0.55 10*3/uL 0.33-0.92 = 742-7) EOS x10^3 (test code = 0.14 10*3/uL 0.03-0.39 711-2) BASO x10^3 (test code <0.03 0.01-0.07 = 704-7) Lab Interpretation Abnormal (test code = 83526-4) [facility] ON A CART THROMBELASTOGRAPH CITRATED KAOLIN W/[id number] 21:35:00 Test Item Value Reference Range Interpretation Comments R (test code = 9162515891) 6.8 min 5-10 TEG K (test code = 5355141849) 5.2 min 1-3 H Angle (test code = 5699058262) 39.4 deg 53-72 L MA (test code = 9464470286) 35.7 min 50-70 L Lab Interpretation (test code = Abnormal 39324-7) [facility] ON A CART THROMBELASTOGRAPH CITRATED [id number] 16:23:00 Test Item Value Reference Range Interpretation Comments R (test code = 6992564060) 5.9 min 5-10 TEG K (test code = 4714272318) 4.9 min 1-3 H Angle (test code = 3380808783) 44.5 deg 53-72 L MA (test code = 2718508851) 38.7 min 50-70 L Lab Interpretation (test code = Abnormal 25252-2) [facility] WITH [id number] 16:16:00 Test Item Value Reference Range Interpretation Comments WBC (test code = See_Comment [Automated 6690-2) message] The sy stem which generated this result transmitted reference range : 4.30 - 11.10 10*3/?L. The reference range was not used to interpret this result as normal/abnormal . RBC (test code = See_Comment L [Automated 789-8) message] The sy stem which generated this result transmitted reference range : 3.93 - 5.25 10*6/?L. The reference range was not used to interpret this result as normal/abnormal . HGB (test code = 9.0 g/dL 11.6-15 L 718-7) HCT (test code = 27.9 % 35.7-45.2 L 4544-3) MCV (test code = 93.3 fL 80.6-95.5 787-2) MCH (test code = 30.1 pg 25.9-32.8 785-6) MCHC (test code = 32.3 g/dL 31.6-35.1 786-4) RDW-SD (test code = 50.5 fL 39-49.9 H 83095-1) RDW-CV (test code = 15.1 % 12-15.5 788-0) PLT (test code = See_Comment L [Automated 777-3) message] The sy stem which generated this result transmitted reference range : 166 - 358 10*3/ ?L. The reference r susan was not used to interpret this result as normal/abnormal . MPV (test code = 10.5 fL 9.5-12.9 94402-8) NRBC/100 WBC (test See_Comment [Automat ed code = 8251426020) message] The system which generated this result transmitted reference range : 0.0 - 10.0 /100 WBCs. The refer ence range was not u sed to interpret th is result as normal/abnormal . NRBC x10^3 (test code <0.01 See_Comment [Auto mated = 1807237580) message] The s ystem which generated this result transmitted reference range : 10*3/?L. The reference range was not used to interpret this result as normal/abnormal . GRAN MAT (NEUT) % 73.2 % (test code = 770-8) IMM GRAN % (test code 0.80 % = 3215132108) LYMPH % (test code = 20.1 % 736-9) MONO % (test code = 4.9 % 5905-5) EOS % (test code = 0.9 % 713-8) BASO % (test code = 0.1 % 706-2) GRAN MAT x10^3(ANC) 7.42 10*3/uL 1.88-7.09 H (test code = 8657535125) IMM GRAN x10^3 (test 0.08 10*3/uL 0-0.06 H code = 7117150277) LYMPH x10^3 (test code 2.04 10*3/uL 1.32-3.29 = 731-0) MONO x10^3 (test code 0.50 10*3/uL 0.33-0.92 = 742-7) EOS x10^3 (test code = 0.09 10*3/uL 0.03-0.39 711-2) BASO x10^3 (test code <0.03 0.01-0.07 = 704-7) Lab Interpretation Abnormal (test code = 01265-0) [facility] C[facility] [id number] 16:09:00 Test Item Value Reference Range Interpretation Comments BASE EXCESS, CORD mEq/L (test code = 3225468607) AC PH, CORD (BEAKER) 7.18-7.38 (test code = 1166587369) PC02, CORD (test code See_Comment [Auto mated message] The = 4283203275) system which g enerated this result transmit ramana reference range : 32 - 66 mmHg. The refer ence range was not used to interpret this result as normal/abnormal . PO2, CORD (test code See_Comment [Autom ated message] The = 3993276938) system which g enerated this result transmit ramana reference range : 10 - 30 mmHg. The refer ence range was not used to interpret this result as normal/abnormal . BICARBONATE, CORD See_Comment [Automate d message] The (test code = system which ge nerated this 5630612939) result transmit ramana reference range : 17 - 27 mEq/L. The refe rence range was not used to interpret this result as normal/abnormal . [facility] CORD [id number] 16:07:00 Test Item Value Reference Range Interpretation Comments VENOUS BASE EXCESS, CORD mEq/L (test code = 3133892252) VENOUS PH, CORD (test 7.25-7.45 code = 8599198614) VENOUS PC02, CORD (test See_Comment [Au tomated message] code = 4186964460) The syste m which generated this result transmitted ref erence range: 27 - 49 mmHg. The reference r susan was not used to interpret this result as normal/abnor mal. VENOUS PO2, CORD (test See_Comment H [Aut omated message] code = 2478879950) The syste m which generated this result transmitted ref erence range: 17 - 41 mmHg. The reference r susan was not used to interpret this result as normal/abnor mal. VENOUS BICARBONATE, CORD See_Comment [A utomated message] (test code = 6631570660) The system which generated this result transmitted ref erence range: 12 - 29 mEq/L. The reference r susan was not used to interpret this result as normal/abnor mal. Lab Interpretation (test Abnormal code = 57469-1) [facility] ONLY - SYPHILIS [id number] 14:12:00 Test Item Value Reference Range Interpretation Comments Syphilis IgG/IgM (test Non-reactive Non-reactive code = 93420-5) MICKY (test code = MICKY) Non-reactive - No serologic evidence of T. pallidum infection. Cannot exclude incubating or early syphilis. Submit a second specimen in 2-4 weeks if syphilis is clinically suspected.Equivocal - Further testing to follow.Reactive - Further testing to follow. Lab Interpretation (test Normal code = 85638-3) [facility] (in [facility]): 1 Units~Indication: 4) Evidence of platelet dysfunction and no response to DDAVP or cryoprecipitate with active hemorrhage or at risk for [id number] 13:34:52 Test Item Value Reference Range Interpretation Comments Unit Blood Type (test O Pos code = 4410) ISBT Blood Type Code (test code = 533211) Unit Number (test code [id number] = 4411) Blood Expiration Date & Time (test code = 767541) Status Information Issued (test code = 4412) Product Identification Platelets (test code = 4413) Product Code (test [id number] Performed at [facility] code = 4414) Laboratory Services [facility] Blood [address] [address]Dudq Free: [phone] A No. [id number] [facility] Plate[facility] (in units): 1 Units~Indication: 1) Platelets < 10,000 for bleeding [id number] 13:34:51 Test Item Value Reference Range Interpretation Comments Unit Blood Type (test O Pos code = 4410) ISBT Blood Type Code (test code = 718387) Unit Number (test code [id number] = 4411) Blood Expiration Date & Time (test code = 205571) Status Information Issued (test code = 4412) Product Identification Platelets (test code = 4413) Product Code (test [id number] Performed at [facility] code = 4414) Laboratory [facility] Blood [address] s [address]Lmpn Free: [phone] A No. [id number] [facility] TexasHepatitis B Surface [id number] 05:55:00 Test Item Value Reference Range Interpretation Comments HBsAg Semi-Quantitative (test code = 5195-3) [facility] Screen - ONCE [id number] 04:09:59 Test Item Value Reference Range Interpretation Comments ABO & RH (test code A POSITIVE Performe d at [facility] = 20) Laboratory Serv [facility] Blood Bank3 [address] [facility] s [address]Mnos Free: [phone] A No. [id number] IAT (test code = Negative Performed a t [facility] 1185) Laboratory Serv [facility] Blood [address] [facility] [address]Inta Free: [phone] A No. [id number] [facility]CB WITH [id number] 04:09:00 Test Item Value Reference Range Interpretation Comments WBC (test code = See_Comment [Automated 6690-2) message] The sy stem which generated this result transmitted reference range : 4.30 - 11.10 10*3/?L. The reference range was not used to interpret this result as normal/abnormal . RBC (test code = See_Comment L [Automated 789-8) message] The sy stem which generated this result transmitted reference range : 3.93 - 5.25 10*6/?L. The reference range was not used to interpret this result as normal/abnormal . HGB (test code = 10.5 g/dL 11.6-15 L 718-7) HCT (test code = 32.7 % 35.7-45.2 L 4544-3) MCV (test code = 92.1 fL 80.6-95.5 787-2) MCH (test code = 29.6 pg 25.9-32.8 785-6) MCHC (test code = 32.1 g/dL 31.6-35.1 786-4) RDW-SD (test code = 50.7 fL 39-49.9 H 60373-6) RDW-CV (test code = 14.9 % 12-15.5 788-0) PLT (test code = See_Comment L [Automated 777-3) message] The sy stem which generated this result transmitted reference range : 166 - 358 10*3/ ?L. The reference r susan was not used to interpret this result as normal/abnormal . MPV (test code = 11.0 fL 9.5-12.9 11624-2) NRBC/100 WBC (test See_Comment [Automat ed code = 7970055794) message] The system which generated this result transmitted reference range : 0.0 - 10.0 /100 WBCs. The refer ence range was not u sed to interpret th is result as normal/abnormal . NRBC x10^3 (test code <0.01 See_Comment [Auto mated = 4026949170) message] The s ystem which generated this result transmitted reference range : 10*3/?L. The reference range was not used to interpret this result as normal/abnormal . GRAN MAT (NEUT) % 76.1 % (test code = 770-8) IMM GRAN % (test code 0.40 % = 2764565258) LYMPH % (test code = 16.3 % 736-9) MONO % (test code = 6.2 % 5905-5) EOS % (test code = 0.8 % 713-8) BASO % (test code = 0.2 % 706-2) GRAN MAT x10^3(ANC) 7.93 10*3/uL 1.88-7.09 H (test code = 6905822767) IMM GRAN x10^3 (test 0.04 10*3/uL 0-0.06 code = 7206935357) LYMPH x10^3 (test code 1.69 10*3/uL 1.32-3.29 = 731-0) MONO x10^3 (test code 0.64 10*3/uL 0.33-0.92 = 742-7) EOS x10^3 (test code = 0.08 10*3/uL 0.03-0.39 711-2) BASO x10^3 (test code <0.03 0.01-0.07 = 704-7) Lab Interpretation Abnormal (test code = 05673-2) [facility] [id number] 16:13:01Cat I [facility] W SPECIFIC [id number] 15:39:00 Test Item Value Reference Range Interpretation Comments POCT U SP GRAV (test code = 3255) . 1.005-1.025 POCT PH U (test code = 3254) 5 mg/dl 5-8 POCT U LEUK EST (test code = neg Negative - Negative 3263) POCT U NIT (test code = 3262) neg Negative - Negative POCT U PROT (test code = 3259) trace Negative - Negative POCT U GLU (test code = 3256) neg Negative - Negative POCT U KETONE (test code = 3258) neg Negative - Negative POCT U UROBILI (test code = 3260) . 0.2-1 POCT U BILI (test code = 3261) . Negative - Negative POCT U BLD (test code = 3257) neg Negative - Negative POCT U COLOR (test code = 3266) POCT U APPEAR (test code = 3267) [facility] NON-STRESS [id number] 19:32:31 [facility] SPECIFIC GRAVITY 2018-12-18 18:02:00 Test Item Value Reference Range Interpretation Comments POCT U SP GRAV (test code = 3255) . 1.005-1.025 POCT PH U (test code = 3254) . 5-8 POCT U LEUK EST (test code = 3263) . Negative - Negative POCT U NIT (test code = 3262) . Negative - Negative POCT U PROT (test code = 3259) trace Negative - Negative POCT U GLU (test code = 3256) neg Negative - Negative POCT U KETONE (test code = 3258) . Negative - Negative POCT U UROBILI (test code = 3260) . 0.2-1 POCT U BILI (test code = 3261) . Negative - Negative POCT U BLD (test code = 3257) . Negative - Negative POCT U COLOR (test code = 3266) POCT U APPEAR (test code = 3267) [facility] NON-STRESS [id number] 19:37:16NST NOTE12/13/2018 2:28 PM GA: 36w4d Baseline: 130sVariability: ModerateAccels: +Decels: NoneToco: Quiescent Assessment: Reactive and reassuringPlan: [facility] as [facility]Un[facility] [id number] 16:54:14NST reviewed, FHR 140s, moderate variability noted, category I, no contractions.[facility] URINALYSIS W SPECIFIC [id number] 15:45:00 Test Item Value Reference Range Interpretation Comments POCT U SP GRAV (test code = 3255) . 1.005-1.025 POCT PH U (test code = 3254) 5 mg/dl 5-8 POCT U LEUK EST (test code = neg Negative - Negative 3263) POCT U NIT (test code = 3262) neg Negative - Negative POCT U PROT (test code = 3259) trace Negative - Negative POCT U GLU (test code = 3256) neg Negative - Negative POCT U KETONE (test code = 3258) neg Negative - Negative POCT U UROBILI (test code = 3260) . 0.2-1 POCT U BILI (test code = 3261) . Negative - Negative POCT U BLD (test code = 3257) neg Negative - Negative POCT U COLOR (test code = 3266) POCT U APPEAR (test code = 3267) [facility] STREPTOCOCCUS BY [id number] 15:17:00 Test Item Value Reference Range Interpretation Comments Group B Streptococcus by PCR (test Negative Negative code = 76175-2) Lab Interpretation (test code = Normal 22303-1) [facility] WITH [id number] 06:28:00 Test Item Value Reference Range Interpretation Comments WBC (test code = See_Comment [Automated 6690-2) message] The sy stem which generated this result transmitted reference range : 4.30 - 11.10 10*3/?L. The reference range was not used to interpret this result as normal/abnormal . RBC (test code = See_Comment L [Automated 789-8) message] The sy stem which generated this result transmitted reference range : 3.93 - 5.25 10*6/?L. The reference range was not used to interpret this result as normal/abnormal . HGB (test code = 10.3 g/dL 11.6-15 L 718-7) HCT (test code = 32.5 % 35.7-45.2 L 4544-3) MCV (test code = 93.4 fL 80.6-95.5 787-2) MCH (test code = 29.6 pg 25.9-32.8 785-6) MCHC (test code = 31.7 g/dL 31.6-35.1 786-4) RDW-SD (test code = 54.0 fL 39-49.9 H 85970-8) RDW-CV (test code = 15.9 % 12-15.5 H 788-0) PLT (test code = See_Comment L [Automated 777-3) message] The sy stem which generated this result transmitted reference range : 166 - 358 10*3/ ?L. The reference r susan was not used to interpret this result as normal/abnormal . MPV (test code = 11.6 fL 9.5-12.9 99395-6) IPF % (test code = 5.3 % 1.3-7.7 Platelet count [id number]) measured by fluorescence method. NRBC/100 WBC (test See_Comment [Automat ed code = 0608867140) message] The system which generated this result transmitted reference range : 0.0 - 10.0 /100 WBCs. The refer ence range was not u sed to interpret th is result as normal/abnormal . NRBC x10^3 (test code <0.01 See_Comment [Auto mated = 0952770968) message] The s ystem which generated this result transmitted reference range : 10*3/?L. The reference range was not used to interpret this result as normal/abnormal . GRAN MAT (NEUT) % 80.4 % (test code = 770-8) IMM GRAN % (test code 0.40 % = 9821550477) LYMPH % (test code = 12.4 % 736-9) MONO % (test code = 5.6 % 5905-5) EOS % (test code = 1.0 % 713-8) BASO % (test code = 0.2 % 706-2) GRAN MAT x10^3(ANC) 6.55 10*3/uL 1.88-7.09 (test code = 3092532090) IMM GRAN x10^3 (test 0.03 10*3/uL 0-0.06 code = 8583863213) LYMPH x10^3 (test code 1.01 10*3/uL 1.32-3.29 L = 731-0) MONO x10^3 (test code 0.46 10*3/uL 0.33-0.92 = 742-7) EOS x10^3 (test code = 0.08 10*3/uL 0.03-0.39 711-2) BASO x10^3 (test code <0.03 0.01-0.07 = 704-7) Lab Interpretation Abnormal (test code = 03719-0) [facility] NON-STRESS [id number] 21:11:11NST reactive and reassuring, 1 ctx notedUnAntelope [facility] URINALYSIS W SPECIFIC [id number] 15:35:00 Test Item Value Reference Range Interpretation Comments POCT U SP GRAV (test code = 3255) . 1.005-1.025 POCT PH U (test code = 3254) 7 mg/dl 5-8 POCT U LEUK EST (test code = Neg Negative - Negative 3263) POCT U NIT (test code = 3262) Neg Negative - Negative POCT U PROT (test code = 3259) Trace Negative - Negative POCT U GLU (test code = 3256) Neg Negative - Negative POCT U KETONE (test code = 3258) None Negative - Negative POCT U UROBILI (test code = 3260) . 0.2-1 POCT U BILI (test code = 3261) . Negative - Negative POCT U BLD (test code = 3257) Neg Negative - Negative POCT U COLOR (test code = 3266) POCT U APPEAR (test code = 3267) [facility] NON-STRESS [id number] 18:37:51Cat I [facility] NON-STRESS [id number] 18:37:51Cat I [facility] NON-STRESS [id number] 18:37:51Cat I [facility] URINALYSIS W SPECIFIC [id number] 17:59:00 Test Item Value Reference Range Interpretation Comments POCT U SP GRAV (test code = 3255) . 1.005-1.025 POCT PH U (test code = 3254) 7 mg/dl 5-8 POCT U LEUK EST (test code = Trace Negative - Negative 3263) POCT U NIT (test code = 3262) Neg Negative - Negative POCT U PROT (test code = 3259) Trace Negative - Negative POCT U GLU (test code = 3256) Neg Negative - Negative POCT U KETONE (test code = 3258) None Negative - Negative POCT U UROBILI (test code = 3260) . 0.2-1 POCT U BILI (test code = 3261) . Negative - Negative POCT U BLD (test code = 3257) Neg Negative - Negative POCT U COLOR (test code = 3266) POCT U APPEAR (test code = 3267) [facility] URINALYSIS W SPECIFIC [id number] 17:59:00 Test Item Value Reference Range Interpretation Comments POCT U SP GRAV (test code = 3255) . 1.005-1.025 POCT PH U (test code = 3254) 7 mg/dl 5-8 POCT U LEUK EST (test code = Trace Negative - Negative 3263) POCT U NIT (test code = 3262) Neg Negative - Negative POCT U PROT (test code = 3259) Trace Negative - Negative POCT U GLU (test code = 3256) Neg Negative - Negative POCT U KETONE (test code = 3258) None Negative - Negative POCT U UROBILI (test code = 3260) . 0.2-1 POCT U BILI (test code = 3261) . Negative - Negative POCT U BLD (test code = 3257) Neg Negative - Negative POCT U COLOR (test code = 3266) POCT U APPEAR (test code = 3267) [facility] URINALYSIS W SPECIFIC [id number] 17:59:00 Test Item Value Reference Range Interpretation Comments POCT U SP GRAV (test code = 3255) . 1.005-1.025 POCT PH U (test code = 3254) 7 mg/dl 5-8 POCT U LEUK EST (test code = Trace Negative - Negative 3263) POCT U NIT (test code = 3262) Neg Negative - Negative POCT U PROT (test code = 3259) Trace Negative - Negative POCT U GLU (test code = 3256) Neg Negative - Negative POCT U KETONE (test code = 3258) None Negative - Negative POCT U UROBILI (test code = 3260) . 0.2-1 POCT U BILI (test code = 3261) . Negative - Negative POCT U BLD (test code = 3257) Neg Negative - Negative POCT U COLOR (test code = 3266) POCT U APPEAR (test code = 3267) [facility] NON-STRESS [id number] 17:50:16 Reactive and reassuringUnAnt[facility] URINALYSIS W SPECIFIC [id number] 15:21:00 Test Item Value Reference Range Interpretation Comments POCT U SP GRAV (test code = 3255) . 1.005-1.025 POCT PH U (test code = 3254) 6 mg/dl 5-8 POCT U LEUK EST (test code = Neg Negative - Negative 3263) POCT U NIT (test code = 3262) Neg Negative - Negative POCT U PROT (test code = 3259) Trace Negative - Negative POCT U GLU (test code = 3256) Neg Negative - Negative POCT U KETONE (test code = 3258) None Negative - Negative POCT U UROBILI (test code = 3260) . 0.2-1 POCT U BILI (test code = 3261) . Negative - Negative POCT U BLD (test code = 3257) Neg Negative - Negative POCT U COLOR (test code = 3266) POCT U APPEAR (test code = 3267) [facility] NON-STRESS [id number] 14:37:24Cat 1 NST reactive, reviewed with Dr. [facility]amaUnAnt[facility] URINALYSIS W SPECIFIC [id number] 13:15:00 Test Item Value Reference Range Interpretation Comments POCT U SP GRAV (test code = 3255) . 1.005-1.025 POCT PH U (test code = 3254) . 5-8 POCT U LEUK EST (test code = 3263) . Negative - Negative POCT U NIT (test code = 3262) . Negative - Negative POCT U PROT (test code = 3259) neg Negative - Negative POCT U GLU (test code = 3256) neg Negative - Negative POCT U KETONE (test code = 3258) . Negative - Negative POCT U UROBILI (test code = 3260) . 0.2-1 POCT U BILI (test code = 3261) . Negative - Negative POCT U BLD (test code = 3257) . Negative - Negative POCT U COLOR (test code = 3266) POCT U APPEAR (test code = 3267) [facility] NON-STRESS [id number] 14:57:43 nonreactive NST with spontaneous decels to 100s from baseline. Will send to LD for prolonged monitoring.[facility] NON-STRESS TEST 2018-11-19 14:57:43nonreactive NST with spontaneous decels to 100s from baseline. Will send to LD for prolonged monitoring.[facility] NON-STRESS [id number] 14:57:43nonreactive NST with spontaneous decels to 100s from baseline. Will send to LD for prolonged monitoring. [facility] URINALYSIS W SPECIFIC [id number] 14:30:00 Test Item Value Reference Range Interpretation Comments POCT U SP GRAV (test code = 3255) . 1.005-1.025 POCT PH U (test code = 3254) 6 mg/dl 5-8 POCT U LEUK EST (test code = neg Negative - Negative 3263) POCT U NIT (test code = 3262) neg Negative - Negative POCT U PROT (test code = 3259) trace Negative - Negative POCT U GLU (test code = 3256) neg Negative - Negative POCT U KETONE (test code = 3258) neg Negative - Negative POCT U UROBILI (test code = 3260) . 0.2-1 POCT U BILI (test code = 3261) . Negative - Negative POCT U BLD (test code = 3257) neg Negative - Negative POCT U COLOR (test code = 3266) POCT U APPEAR (test code = 3267) [facility] URINALYSIS W SPECIFIC [id number] 14:30:00 Test Item Value Reference Range Interpretation Comments POCT U SP GRAV (test code = 3255) . 1.005-1.025 POCT PH U (test code = 3254) 6 mg/dl 5-8 POCT U LEUK EST (test code = neg Negative - Negative 3263) POCT U NIT (test code = 3262) neg Negative - Negative POCT U PROT (test code = 3259) trace Negative - Negative POCT U GLU (test code = 3256) neg Negative - Negative POCT U KETONE (test code = 3258) neg Negative - Negative POCT U UROBILI (test code = 3260) . 0.2-1 POCT U BILI (test code = 3261) . Negative - Negative POCT U BLD (test code = 3257) neg Negative - Negative POCT U COLOR (test code = 3266) POCT U APPEAR (test code = 3267) [facility] [id number] 14:30:00 Test Item Value Reference Range Interpretation Comments POCT U SP GRAV (test code = 3255) . 1.005-1.025 POCT PH U (test code = 3254) 6 mg/dl 5-8 POCT U LEUK EST (test code = neg Negative - Negative 3263) POCT U NIT (test code = 3262) neg Negative - Negative POCT U PROT (test code = 3259) trace Negative - Negative POCT U GLU (test code = 3256) neg Negative - Negative POCT U KETONE (test code = 3258) neg Negative - Negative POCT U UROBILI (test code = 3260) . 0.2-1 POCT U BILI (test code = 3261) . 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 NST: ReactiveFHR baseline: 140s BPMChanges: > 2 accelerationsComments: toco quiescedPlan: Continue NST 2x weekAntosimone De La Rosa MD #[id number] 3:16 PM?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 NST: ReactiveFHR baseline: 140s BPMChanges: > 2 accelerationsComments: toco quiescedPlan: Continue NST 2x weekAntosimone De La Rosa MD #[id number] 3:16 PM?[facility] URINALYSIS W SPECIFIC [id number] 19:32:00 Test Item Value Reference Range Interpretation Comments POCT U SP GRAV (test code = 3255) . 1.005-1.025 POCT PH U (test code = 3254) 7 mg/dl 5-8 POCT U LEUK EST (test code = neg Negative - Negative 3263) POCT U NIT (test code = 3262) neg Negative - Negative POCT U PROT (test code = 3259) trace Negative - Negative POCT U GLU (test code = 3256) neg Negative - Negative POCT U KETONE (test code = 3258) neg Negative - Negative POCT U UROBILI (test code = 3260) . 0.2-1 POCT U BILI (test code = 3261) . Negative - Negative POCT U BLD (test code = 3257) neg Negative - Negative POCT U COLOR (test code = 3266) POCT U APPEAR (test code = 3267) [facility] [id number] 19:32:00 Test Item Value Reference Range Interpretation Comments POCT U SP GRAV (test code = 3255) . 1.005-1.025 POCT PH U (test code = 3254) 7 mg/dl 5-8 POCT U LEUK EST (test code = neg Negative - Negative 3263) POCT U NIT (test code = 3262) neg Negative - Negative POCT U PROT (test code = 3259) trace Negative - Negative POCT U GLU (test code = 3256) neg Negative - Negative POCT U KETONE (test code = 3258) neg Negative - Negative POCT U UROBILI (test code = 3260) . 0.2-1 POCT U BILI (test code = 3261) . Negative - Negative POCT U BLD (test code = 3257) neg Negative - Negative POCT U COLOR (test code = 3266) POCT U APPEAR (test code = 3267) [facility] [id number] 17:13:56 Reactive and reassuringUnSt[facility] SPECIFIC [id number] 15:56:00 Test Item Value Reference Range Interpretation Comments POCT U SP GRAV (test code = 3255) . 1.005-1.025 POCT PH U (test code = 3254) 7 mg/dl 5-8 POCT U LEUK EST (test code = Neg Negative - Negative 3263) POCT U NIT (test code = 3262) Neg Negative - Negative POCT U PROT (test code = 3259) Trace Negative - Negative POCT U GLU (test code = 3256) Neg Negative - Negative POCT U KETONE (test code = 3258) None Negative - Negative POCT U UROBILI (test code = 3260) . 0.2-1 POCT U BILI (test code = 3261) . Negative - Negative POCT U BLD (test code = 3257) Neg Negative - Negative POCT U COLOR (test code = 3266) POCT U APPEAR (test code = 3267) [facility]"
[2021-03-01 02:25] LABS: Absolute Lymphocytes (CBC) 0.9 K/uL (0.7-4.9); Basophils % 0.6 % (0-1.3); Lymphocytes % 16.8 % (15.3-44.8); MPV 8.5 fL (7.6-11.3)
[2021-03-01 02:26] LABS: Protime INR 1.15
[2021-03-01 02:30] LABS: Hematocrit 13.2 % (36.0-45.0)
[2021-03-01 02:42] LABS: ALT/SGPT 17 U/L (12-78); AST/SGOT 4 U/L (15-37); Albumin 3.9 g/dL (3.4-5.0); Alkaline Phosphatase 51 U/L (45-117); BUN Blood Urea Nitrogen 11 mg/dL (7-18); Bicarbonate 24 mmol/L (21-32); Bilirubin Direct 0.1 mg/dL (0-0.2); Bilirubin Total 0.3 mg/dL (0.2-1.0); Glucose Level 94 mg/dL (74-106); Magnesium 2.2 mg/dL (1.8-2.4); NT PRO-BNP 70 pg/mL (<125); Potassium 3.9 mmol/L (3.5-5.1); Protein, Total 7.8 g/dL (6.4-8.2); Sodium Level 140 mmol/L (136-145); Troponin (Emerg Dept Use Only) < 0.02 ng/mL (0.0-0.045)
[2021-03-01] MEDS ORDERED: ONDANSETRON 4 MG/2 ML VIAL ONE (02:58)
[2021-03-01] MEDS ORDERED: MORPHINE 4 MG/ML SYR ONE (02:58)
--- NOTE | 2021-03-01 03:00 | EDPHYS ---
Physician Documentation [facility] Name: Bri Boyd Age: 35 yrs Sex: Female : 1985 Arrival Date: 03/01/2021 Time: 00:02 Bed 24 Private MD: ED Physician Mahesh Canseco HPI: 03/01 01:36 This 35 yrs old Female presents to ER via Ambulatory with complaints of pm1 General Weakness, Chest Congestion. 01:36 The patient's problem is reported as weakness, that is generalized. Onset: The pm1 symptoms/episode began/occurred 1.5 month(s) ago. Duration: The episode is continuous, the symptoms became worse. Context: Possible contributing factors include: chronic illness Glanzmann's. The symptoms are alleviated by nothing. The symptoms are aggravated by typically her menses. Patient last vaginal bleeding 02/15/2021. Associated signs and symptoms: Pertinent positives: generalized bodyaches and ringing in her ears when she needs a blood transfusion. Severity of symptoms: in the emergency department the symptoms are worse. The patient has experienced similar episodes in the past, multiple times, chronically. The patient has not recently seen a physician. 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 - Social history:: Smoking status: Patient denies any tobacco usage or history of. ROS: 01:36 Constitutional: Negative for fever, chills, and weight loss, Cardiovascular: Negative pm1 for chest pain, palpitations, and edema. 01:36 Abdomen/GI: Negative for abdominal pain, nausea, vomiting, diarrhea, and constipation, Back: Negative for injury and pain, : Negative for injury, bleeding, discharge, and swelling, MS/Extremity: Negative for injury and deformity, Skin: Negative for injury, rash, and discoloration. 01:36 ENT: Positive for tinnitus. 01:36 Respiratory: Positive for cough, Negative for shortness of breath. 01:36 Neuro: Positive for generalized weakness. 01:36 All other systems are negative. Exam: 01:36 Constitutional: This is a well developed, well nourished patient who is awake, alert, pm1 and in no acute distress. Head/Face: Normocephalic, atraumatic. 01:36 MS/ Extremity: Pulses equal, no cyanosis. Neurovascular intact. Full, normal range of motion. Neuro: Awake and alert, GCS 15, oriented to person, place, time, and situation. Cranial nerves II-XII grossly intact. Motor strength 5/5 in all extremities. Sensory grossly intact. Cerebellar exam normal. Normal gait. 01:36 Eyes: Extraocular movements: no acute changes, Conjunctiva: pale, bilaterally. 01:36 Cardiovascular: Exam negative for acute changes, Rate: normal, Rhythm: regular, Pulses: no pulse deficits are appreciated, Heart sounds: normal. 01:36 Respiratory: Exam negative for acute changes, respiratory distress, shortness of breath, Breath sounds: are clear throughout. 01:36 Abdomen/GI: Exam negative for acute changes, Inspection: abdomen appears normal, Palpation: abdomen is soft and non-tender, in all quadrants. 01:36 Skin: Appearance: Color: pale. 01:36 Neuro: Exam negative for acute changes, Orientation: is normal, Mentation: is normal, Motor: is normal, moves all fours. 03:07 Abdomen/GI: Rectal exam: rectal tone normal, Stool: normal, guaiac negative, the exam pm1 is chaperoned by the nurse. Vital Signs: 00:37 BP 121 / 61; Pulse 80; Resp 18; Temp 98.7; Pulse Ox 100% on R/A; Weight 74.84 kg; em Height 5 ft. 6 in. (167.64 cm); 00:37 Body Mass Index 26.63 (74.84 kg, 167.64 cm) em MDM: 00:57 Patient medically screened. pm1 02:36 Data reviewed: vital signs. Data interpreted: Pulse oximetry: on room air is 100 %. pm1 Interpretation: normal. 02:46 Counseling: I had a detailed discussion with the patient and/or guardian regarding: the pm1 historical points, exam findings, and any diagnostic results supporting the discharge/admit diagnosis, lab results, the need for further work-up and treatment in the hospital, need for blood transfusion. 03/01 01:02 Order name: Basic Metabolic Panel pm1 03/01 01:02 Order name: CBC with Diff pm1 03/01 01:02 Order name: LFT's; Complete Time: 02:58 pm1 03/01 01:02 Order name: Magnesium; Complete Time: 02:58 pm1 03/01 01:02 Order name: NT PRO-BNP; Complete Time: 02:58 pm1 03/01 01:02 Order name: PT-INR; Complete Time: 02:58 pm1 03/01 01:02 Order name: Troponin (emerg Dept Use Only); Complete Time: 02:58 pm1 03/01 01:03 Order name: Basic Metabolic Panel; Complete Time: 02:58 [facility] 03/01 02:30 Order name: CBC Smear Scan [facility] 03/01 02:46 Order name: Packed RBC Leukored [facility] 03/01 02:52 Order name: Type and Screen Tube method [facility] 03/01 03:00 Order name: Ferritin [facility] 03/01 03:00 Order name: TIBC [facility] 03/01 03:00 Order name: LDH [facility] 03/01 03:00 Order name: Ferritin [facility] 03/01 03:12 Order name: Retic Count [facility] 03/01 03:29 Order name: SARS-COV-2 RT PCR [facility] 03/01 06:10 Order name: Urine Dipstick-Ancillary [facility] 03/01 06:24 Order name: Urine --Ancillary (enter results) [facility] 03/01 06:35 Order name: Urine --Ancillary [facility] 03/01 07:00 Order name: Urinalysis [facility] 03/01 07:13 Order name: Urine Microscopic Only [facility] 03/01 15:58 Order name: Hemoglobin [facility] 03/01 15:58 Order name: Hematocrit [facility] 03/02 06:06 Order name: CBC with Automated Diff [facility] 03/02 07:08 Order name: Comprehensive Metabolic Panel [facility] 03/01 01:02 Order name: XRAY Chest (1 view) pm1 03/01 01:02 Order name: EKG; Complete Time: 01:03 pm1 03/01 01:02 Order name: Cardiac monitoring; Complete Time: 02:43 pm1 03/01 01:02 Order name: EKG - Nurse/Tech; Complete Time: 01:58 pm1 03/01 01:02 Order name: IV Saline Lock; Complete Time: 01:58 pm1 03/01 01:02 Order name: Labs collected and sent; Complete Time: 01:58 pm1 03/01 01:02 Order name: O2 Per Protocol pm1 03/01 01:02 Order name: O2 Sat Monitoring; Complete Time: 02:43 pm1 03/01 02:30 Order name: Transfuse; Complete Time: 02:42 pm1 03/02 07:08 Order name: T4 Free [facility] 03/02 07:08 Order name: Magnesium [facility] 03/02 07:08 Order name: Thyroid Stimulating Hormone [facility] 03/02 07:08 Order name: Iron ED[facility] 03/02 07:08 Order name: Folic Acid, (Folate) ED[facility] 03/02 07:08 Order name: Vitamin B12 Level ED[facility] 03/02 07:39 Order name: CBC Smear Scan EDMS Administered Medications: 03:00 Drug: Zofran (Ondansetron) 4 mg Route: IVP; Site: right antecubital; cc4 03:05 Drug: morphine 4 mg Route: IVP; Site: right antecubital; cc4 Point of Care Testing: Guaiac: 03:07 Stool Guaiac: Negative; Stool Hemoccult Control: Pass; mw2 Disposition Summary: 03/01/21 03:00 Hospitalization Ordered Hospitalization Status: Observation pm1 Provider: Mahesh Ramírez pm1 Condition: Stable pm1 Problem: new pm1 Symptoms: have improved pm1 Bed/Room Type: Standard pm1 Location: [facility] ER HOLD(03/01/21 03:47) cg Room Assignment: ERHOLD-(03/01/21 03:47) cg Diagnosis - Anemia in other chronic diseases classified elsewhere pm1 Forms: - Medication Reconciliation Form pm1 - SBAR form pm1 Signatures: Dispatcher [employer] EDHomer Almazan RN RN em Garcia, Cindy, RN RN cg Marinas, Patrick, NP [employer] pm1 Elizabeth Muniz RN RN cc4 Corrections: (The following items were deleted from the chart) 02:52 01:03 TYPE AND SCREEN+BB.LAB.BRZ ordered. EDMS EDMS 03:01 03:01 FERRITIN+C.LAB.BRZ ordered. EDMS EDMS 03:12 03:01 RETIC COUNT+H.LAB.BRZ ordered. EDMS EDMS 03:29 02:41 CORONAVIRUS+MR.LAB.BRZ ordered. EDMS EDMS 03:47 03:00 Telemetry/MedSurg (observation) pm1 cg 03:47 03:00 pm1 cg
--- NOTE | 2021-03-01 03:00 | ER ---
Nurse's Notes [facility] Name: Bri Boyd Age: 35 yrs Sex: Female : 1985 Arrival Date: 03/01/2021 Time: 00:02 Bed 24 Private MD: Diagnosis: Anemia in other chronic diseases classified elsewhere Presentation: 03/01 00:37 Chief complaint: Patient states: LMP was 02/15, has been having having flow for about 2 em weeks, hx of anemia and needing blood transfusions, also reports low energy, muscle aches, and shortness of breath. Coronavirus screen: Vaccine status: Patient reports being unvaccinated. Ebola Screen: Patient negative for fever greater than or equal to 101.5 degrees Fahrenheit, and additional compatible Ebola Virus Disease symptoms Patient denies exposure to infectious person. Patient denies travel to an Ebola-affected area in the 21 days before illness onset. No symptoms or risks identified at this time. Initial Sepsis Screen: Does the patient meet any 2 criteria? No. Patient's initial sepsis screen is negative. Does the patient have a suspected source of infection? No. Patient's initial sepsis screen is negative. Risk Assessment: Do you want to hurt yourself or someone else? Patient reports no desire to harm self or others. Onset of symptoms was March 01, 2021. 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 - Social history:: Smoking status: Patient denies any tobacco usage or history of. Screenin:45 Abuse screen: Denies threats or abuse. Nutritional screening: No deficits noted. cc4 Tuberculosis screening: No symptoms or risk factors identified. Fall Risk None identified. Assessment: 00:45 General: Appears in no apparent distress. skin color pale.. General: Behavior is calm, cc4 cooperative. Pain: Denies pain. Neuro: No deficits noted. Level of Consciousness is awake, alert, obeys commands, Oriented to person, place, time, situation. Cardiovascular: No deficits noted. Rhythm is sinus rhythm. Respiratory: No deficits noted. Airway is patent Breath sounds are clear bilaterally. GI: No deficits noted. Abdomen is flat, Bowel sounds present X 4 quads. : No signs and/or symptoms were reported regarding the genitourinary system. EENT: No deficits noted. Eyes clear; conjunctiva pale. Derm: Skin is intact, Skin is pale, Bruising that is. Musculoskeletal: No deficits noted. Capillary refill < 3 seconds, Range of motion: intact in all extremities. Vital Signs: 00:37 BP 121 / 61; Pulse 80; Resp 18; Temp 98.7; Pulse Ox 100% on R/A; Weight 74.84 kg; em Height 5 ft. 6 in. (167.64 cm); 00:37 Body Mass Index 26.63 (74.84 kg, 167.64 cm) em ED Course: 00:02 Patient arrived in ED. ja2 00:39 Triage completed. em 00:39 Arm band placed on. em 00:45 Patient has correct armband on for positive identification. Bed in low position. Call cc4 light in reach. Side rails up X 1. 00:56 Preet Adair, IP ATTORNEY is PHCP. pm1 00:56 Mahesh Canseco MD is Attending Physician. pm1 01:24 XRAY Chest (1 view) In Process Unspecified. EDMS 01:56 Elizabeth Muniz, MCKENZIE is Primary Nurse. cc4 02:27 Inserted saline lock: 20 gauge in right antecubital area, using aseptic technique. oe Blood collected. 02:42 CBC Smear Scan Sent. cc4 02:43 Basic Metabolic Panel Sent. cc4 02:43 Basic Metabolic Panel Sent. cc4 02:43 CBC with Diff Sent. cc4 02:43 PT-INR Sent. cc4 03:00 Mahesh Ramírez MD is Hospitalizing Provider. pm1 03:14 Type and Screen Tube method Sent. cc4 03:14 Packed RBC Leukored Sent. cc4 03/02 01:16 Urine --Ancillary (enter results) Sent. cc4 01:17 Ferritin Sent. cc4 Administered Medications: 03/01 03:00 Drug: Zofran (Ondansetron) 4 mg Route: IVP; Site: right antecubital; cc4 03:05 Drug: morphine 4 mg Route: IVP; Site: right antecubital; cc4 Point of Care Testing: Guaiac: 03:07 Stool Guaiac: Negative; Stool Hemoccult Control: Pass; mw2 Outcome: 03:00 Decision to Hospitalize by Provider. pm1 03/02 14:38 Patient left the ED. Signatures: Dispatcher [employer] EDMS Homer Roberto RN RN Aggie Martinez RN RN Preet Adair NP IP ATTORNEY pm1 Dwight Garcia MyKena mw2 Johanny Berger [facility] Elizabeth Muniz RN RN cc4 Corrections: (The following items were deleted from the chart) 03/01 02:52 02:43 TYPE AND SCREEN+BB.LAB.ESPERANZA drawn and sent. [facility] EDVA
[2021-03-01 03:17] LABS: Blood Morphology Comment NOTED (NOT SEEN); Hypochromasia 2+; Ovalocytes 1+; Platelet Estimate ADEQ
[2021-03-01 03:27] LABS: Ferritin 6.3 ng/mL (8-388); White Blood Cell Scan OK (OK)
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
[2021-03-01] MEDS ORDERED: ONDANSETRON 4 MG/2 ML VIAL IV PRN (05:05)
[2021-03-01] MEDS ORDERED: NA CHLORIDE 0.9% 250 ML ONE ×2 (05:11→17:16)
[2021-03-01] MEDS ORDERED: DIPHENHYDRAMINE 50 MG/ML VIAL ONE ×3 (05:54→19:34)
[2021-03-01] MEDS ORDERED: ACETAMINOPHEN 325 MG TABLET ONE ×3 (05:57→19:35)
[2021-03-01] MEDS: ACETAMINOPHEN 325 MG TABLET PO PRN ×2 (05:59→19:48)
[2021-03-01] MEDS: DIPHENHYDRAMINE 50 MG/ML VIAL IV PRN ×2 (06:01→19:49)
[2021-03-01 06:09] LABS: Urine Blood Negative (Negative); Urine Glucose Negative (Negative); Urine Protein Negative (Negative)
[2021-03-01 07:00] LABS: Urine Appearance Clear (Clear); Urine Bilirubin Negative (Negative); Urine Blood Negative (Negative); Urine Color Yellow (Yellow); Urine Glucose Negative (Negative); Urine Protein Negative (Negative); Urine Urobilinogen 0.2 mg/dL (0.2-1.0); Urine pH 6.5 (5.0-7.0)
[2021-03-01 07:09] LABS: Urine Microscopic Reflex ORDER UMIC
[2021-03-01 07:13] LABS: Urine Bacteria 20-50 /HPF (<20); Urine RBC NONE SEEN /HPF (NONE SEEN)
--- NOTE | 2021-03-01 07:24 | RAD REPORT ---
EXAM DESCRIPTION: RAD - Chest Single View - 03/01/2021 1:25 am CLINICAL HISTORY: weakness COMPARISON: Chest Single View dated 07/13/2019; Chest Single View dated 07/09/2019; Chest Single View dated 10/26/2015; Chest Single View dated 09/26/2015 FINDINGS: Lines: None. Lungs: No evidence of edema or pneumonia. Pleural: No significant pleural effusions or pneumothorax. Cardiac: The heart size is within normal limits. Bones: No acute fractures. Other: IMPRESSION: No acute cardiopulmonary disease.
[2021-03-01] MEDS ORDERED: FE SULF/FA/VIT B COMP & C TAB PO SCH (08:00)
[2021-03-01] MEDS: MORPHINE 2 MG/ML SYR IV PRN ×3 (10:01→22:20)
[2021-03-01 14:35] VITALS: O2SAT 100
[2021-03-01 14:47] VITALS: BMI 25.8
[2021-03-01 15:49] LABS: Hematocrit 20.4 % (36.0-45.0)
[2021-03-01] MEDS ORDERED: MORPHINE 2 MG/ML SYR ONE ×2 (16:01→22:18)
--- NOTE | 2021-03-01 17:25 | P.PN ---
Subjective Date of Service: 03/01/21 Subjective: Improving Patient is clinically improved. Review of Systems 10-point ROS is otherwise unremarkable Physical Examination - Vital Signs Temperature: 99.3 F Blood Pressure: 119/41 Pulse: 60 Respirations: 16 Pulse Ox (%): 100 - Physical Exam General: Alert, In no apparent distress HEENT: Atraumatic, PERRLA, EOMI Neck: Supple, JVD not distended Respiratory: Clear to auscultation bilaterally, Normal air movement Cardiovascular: Regular rate/rhythm, Normal S1 S2 Gastrointestinal: Normal bowel sounds, No tenderness Musculoskeletal: No tenderness Integumentary: No rashes Neurological: Normal speech, Normal tone, Normal affect Lymphatics: No axilla or inguinal lymphadenopathy - Studies Laboratory Data (last 24 hrs) 03/01/21 02:10: PT 13.3 H, INR 1.15 03/01/21 02:10: WBC 5.20, Hgb 3.7 L*, Hct 13.2 L*, Plt Count 110 L 03/01/21 02:10: Sodium 140, Potassium 3.9, BUN 11, Creatinine 0.79, Glucose 94, Magnesium 2.2, Total Bilirubin 0.3, AST 4 L, ALT 17, Alkaline Phosphatase 51 Medications List Reviewed: Yes Assessment & Plan - Problems (Diagnosis) (1) Severe anemia Current Visit: No Status: Acute (2) Glanzmann thromboasthenia Onset Date: 06/04/14 Current Visit: No Status: Chronic - Advance Directives Does patient have a Living Will: No Does patient have a Durable POA for Healthcare: No
[2021-03-01] MEDS ORDERED: clonazePAM 0.5 MG TAB PO PRN (22:57)
[2021-03-01] MEDS ORDERED: clonazePAM 0.5 MG TAB ONE (23:02)
[2021-03-02] MEDS ORDERED: NA CHLORIDE 0.9% 250 ML ONE (00:54)
[2021-03-02] MEDS ORDERED: MORPHINE 2 MG/ML SYR ONE ×2 (04:50→10:52)
[2021-03-02] MEDS: MORPHINE 2 MG/ML SYR IV PRN ×2 (04:52→10:54)
[2021-03-02 05:53] LABS: Basophils % 0.4 % (0-1.3); Hematocrit 26.7 % (36.0-45.0); Lymphocytes % 12.9 % (15.3-44.8); MPV 9.1 fL (7.6-11.3); RBC Red Blood Cell Count 3.43 M/uL (3.86-4.86)
[2021-03-02 07:08] LABS: ALT/SGPT 16 U/L (12-78); AST/SGOT 7 U/L (15-37); Albumin 3.4 g/dL (3.4-5.0); Alkaline Phosphatase 45 U/L (45-117); BUN Blood Urea Nitrogen 11 mg/dL (7-18); Bicarbonate 22 mmol/L (21-32); Bilirubin Total 0.8 mg/dL (0.2-1.0); Glucose Level 111 mg/dL (74-106); Magnesium 2.2 mg/dL (1.8-2.4); Potassium 4.2 mmol/L (3.5-5.1); Sodium Level 143 mmol/L (136-145)
[2021-03-02 07:38] LABS: Anisocytosis 1+; Platelet Estimate DECR; White Blood Cell Scan OK (OK)
[2021-03-02 07:40] LABS: Blood Morphology Comment NOTED (NOT SEEN)
[2021-03-02] MEDS ORDERED: CYANOCOBALAMIN 1000MCG/ML INJ IM ONE (09:08)
[2021-03-02] MEDS ORDERED: SOD FERRIC GLUC COMPLX/SUCROSE 250 MG in NA CHLORIDE 0.9% 250 ML IV ONE ×2 (10:00→11:00)
[2021-03-02] MEDS ORDERED: FOLIC ACID 1 MG in NA CHLORIDE 0.9% 50 ML IV SCH (10:00)
[2021-03-02] MEDS ORDERED: DIPHENHYDRAMINE 50 MG/ML VIAL IV PRN (10:27)
[2021-03-02] MEDS ORDERED: METHYLPREDNISOLONE 125 MG INJ IV PRN (10:28)
[2021-03-02 12:14] VITALS: BP 115/75; TEMP 98.8
== END 2021-03-02 13:36 | disposition home or self-care (01) | DRG 812 ==
LOC: ER 23:57 → ERHOLD 03-01 03:39 → OBSVTOIN 03-01 20:20
PROVIDERS: ADMIT Hospitalist; ATTEND Hospitalist
PROC: 30233N1 Transfusion of Nonautologous Red Blood Cells into Peripheral Vein, Percutaneous Approach (ICD-10-PCS; principal; 2021-03-01)
DX: D62 Acute posthemorrhagic anemia (principal); C95.91 Leukemia, unspecified, in remission; D69.1 Qualitative platelet defects; D50.9 Iron deficiency anemia, unspecified; Z20.822 Contact with and (suspected) exposure to COVID-19
CPT/HCPCS: 36415; 71045; 80048; 80053; 80076; 81003; 81015; 81025; 82607; 82728; 82746; 83540; 83615; 83735; 83880; 84439; 84443; 84466; 84484; 85014; 85018; 85025; 85044; 85610; 86850; 86900; 86901; 86922; 87077; 87086; 87088; 87186; 93005; 96374; 96375; 99284; G0378; J1200; J2270; J2405; J2916; J3420; J7050; P9016; U0003

== ENCOUNTER 2021-05-03 15:20 | Emergency (ER) | payer SELFPAY ==
--- OUTSIDE RECORDS SUMMARY | 2021-05-03 15:28 | XMS REPORT | Continuity of Care Document ---
:1985 Author Organization [facility] t Address [address] [place] [address] Care Team Providers Name Role Phone AKIL, Anayeli Primary Care Physician Unavailable Maya Cummins Attending Clinician Unavailable RENE Attending Clinician Unavailable Juan Manuel Reis DO Attending Clinician Misael RINCON Attending Clinician Unavailable Samuel RINCON, Leta Attending Clinician Unavailable Peggy SANDRA, Mabel Attending Clinician Visit, Nurse Attending Clinician Unavailable Angela OVALLEP, C Attending Clinician Akil MARIEE, N Attending Clinician Holger Upton MD Attending Clinician Rocío SANDRA, S Attending Clinician Syd MARIEE, R Attending Clinician Dl SANDRA Attending Clinician Ultrasound Attending Clinician Unavailable Soraida Ferguson Attending Clinician Risk Attending Clinician Unavailable Resident David Attending Clinician Unavailable Ricarda Moore MD Attending Clinician Eduardo SANDRA, W Attending Clinician 2, Mfm Usg Room Attending Clinician Unavailable Doctor Unassigned, Name Attending Clinician Unavailable Aries SANDRA Attending Clinician Faculty, [facility] Attending Clinician Unavailable Quevedo WHCNP, L Attending Clinician Damien Olmos MD Attending Clinician Luigi Cordero Attending Clinician Chaparro Patel Attending Clinician 5, Mf Usg Room Attending Clinician Unavailable Chato SANDRA, M Attending Clinician Rj SANDRA, F Attending Clinician Jose C SANDRA Attending Clinician Maya Cummins Admitting Clinician Unavailable Peggy SANDRA, M Admitting Clinician Dl SANDRA Admitting Clinician Damien Olmos MD Admitting Clinician Payers Payer Name Policy Type Policy Number Effective Date Expiration Date S [facility] [place] PENDING PENDING 2021 00:00:00 Advance Directives Directive Decision Effective Termination Comments Source Date Date Healthcare Agents on N/A Univ ersity FileNameRelationshipHealthcare [facility] Agent Medical RelationshipCommunicationNaval Hospital [facility] S CoronaMotherHealth Care [phone] (Mobile) [email or web address] Problems Condition Condition Condition Status Onset Resolution Last Treating Co mments Source Name Details Category Date Date Treatment Clinician Date Abnormal Abnormal Disease Active 2018-04 Unive rs TSH TSH 0-18 ity of 00:00: [address] Fatty Fatty Disease Active 2018-04 Univers liver liver 0-18 ity of 00:00: [address] Other Other Disease Active 2018-04 Univers fatigue fatigue 0-18 ity of 00:00: [address] Severe Severe Disease Active Univers pre-eclamp pre-eclamp 9-17 it y of richard, richard, 00:00: [place] 00 Me dical condition condition Bran ch or or complicati complicati on on 37 weeks 37 weeks Disease Active Unive rs gestation gestation 9-05 ity of of of 00:00: [place] [facility] Research Research Disease Active Overview: Un brayden study study 12-13 Notice of ity of patient: patient: 00:00: research Noé delgado ECCCO: ECCCO: 00 [facility] C tion in Branch the ECCCA Trial: IRB # [id number]. [facility] [facility] [...] . Disease Active U nivers anemia anemia 11-19 ity of 00:00: [address] Anemia of Anemia of Disease Active Uni vers mother in mother in 805 ity of , , [place] antepartum antepartum 00 [facility] Branch Obesity Obesity Disease Active Univers (BMI (BMI 7-08 ity of 30-39.9) 30-39.9) 00:00: [place] 00 [facility] Rubella Rubella Disease Active Univers non-immune non-immune 6-25 it y of status, status, 00:00: [place] antepartum antepartum 00 [facility] Need for Need for Disease Active Unive rs immunizati immunizati 6-25 it y of on against on against 00:00[place] rubella rubella [address] [place] [address] Placental Placental Disease Active Uni vers abnormalit abnormalit 6-25 it y of y y 00:00: [place] [address] [place] [address] ASCUS with ASCUS with Disease Active Overview : Univers positive positive 2-19 Schedule ity of high risk high risk 00:00: patient Eladio as human human 00 for colpo 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 Multiparit Multiparit Disease Active U nivers y y 2-12 ity of 00:00: [place] 00 Medical Branch History of History of Disease [...] 1-17 [facility] [place] asprin DA Active SV itching, [facility] hives 1-17 Woman[facility] 00:00: [facility] 00 l of [place] iron DA Active U UNKNOWN [facility] 1-17 Woman's 00:00: [facility] 00 l of [place] Penicill Propensi Active Unknown - Uni vers in ty to See comments 2-19 ity of adverse 00:00: [place] reaction 00 Medical s Branch Penicill Propensi Active Unknown - Uni vers in ty to See comments 2-19 ity of adverse 00:00: [place] reaction 00 Medical s Branch PENICILL DRUG Active Unknown-Cmnt Un brayden IN INGREDI 2-19 ity of 00:00: [place] 00 Medical Branch Aspirin Propensi Active Unknown - Unable to U nivers ty to See comments 9- take d/t it y of adverse 00:00: clotting [place] reaction 00 disorder. Medic al s Branch ASPIRIN DRUG Active Unknown-Cmnt 2009-0 Uni vers INGREDI 12-24 ity of 00:00: [place] 00 Medical Branch Social History Social Habit Start Date Stop Date Quantity Comments Source ASSERTION 2018-04-15 University of 00:00:00 [facility] [place] [facility] Alcohol Comment occasionally Univers ity of [facility] [place] [facility] Alcohol intake 2019-02-01 2019-02-01 Current non-drinker U niversity of 00:00:00 00:00:00 of alcohol [facility] (finding) Branch Tobacco use and 2019-02-01 2019-02-01 Never used Universit y of exposure 00:00:00 00:00:00 [facility] [place] [facility] Cigarettes smoked 2019-02-01 2019-02-01 Univers ity of current (pack per 00:00:00 00:00:00 [facility] ) - Reported Branch Cigarette 2019-02-01 2019-02-01 University of pack-years 00:00:00 00:00:00 [facility] [place] [facility] Tobacco Comment 2018-05-29 2018-05-29 1 pack per week; Uni versity of 00:00:00 00:00:00 quit 2015 [facility] [place] [facility] History of 2015-06-21 Cigarette Smoker Universi ty of tobacco use 00:00:00 [facility] [place] [facility] Sex [birth year] At [birth year] Universit y of 00:00:00 00:00:00 [facility] [place] [facility] Smoking Status Start Date Stop Date Source Former smoker 2019-02-01 00:00:00 2019-02-01 00:00:00 Universi ty of [facility] [place] [facility] Medications Ordered Filled Start Stop Current Ordering Indication Dosage Frequency Signature Comments Components Source Medication Medication Date Date Medication? Clinician (SIG) Name Name vitamin 2018-04 Yes 500ug Take 500 Unive rs B-12 500 0-18 mcg by ity of mcg tablet 16:20: mouth [place] 58 daily. Medical Branch vitamin C 2018-04 Yes 100mg Take 100 Uni vers 100 mg 0-18 mg by ity of tablet 16:20: mouth [place] 58 daily. Medical Branch vitamin 2018-04 Yes 500ug Take 500 Unive rs B-12 500 0-18 mcg by ity of mcg tablet 16:20: mouth [place] 58 daily. Medical Branch vitamin C 2018-04 Yes 100mg Take 100 Uni vers 100 mg 0-18 mg by ity of tablet 16:20: mouth [place] 58 daily. Medical Branch vitamin 2018-04 Yes 500ug Take 500 Unive rs B-12 500 0-18 mcg by ity of mcg tablet 16:20: mouth [place] 58 daily. Medical Branch vitamin C 2018-04 Yes 100mg Take 100 Uni vers 100 mg 0-18 mg by ity of tablet 16:20: mouth [place] 58 daily. Medical Branch vitamin 2019 Yes 500ug Take 500 Unive rs B-12 500 9-17 mcg by ity of mcg tablet 19:19: mouth [place] 55 daily. Medical Branch vitamin C Yes 100mg Take 100 Uni vers 100 mg 9-17 mg by ity of tablet 19:19: mouth [place] 55 daily. Medical Branch medroxyPROG Yes 150mg 150 mg, Un brayden ESTERone 01-01 Intramuscu ity o f (DEPO-PROVE 15:15: lar, [place] RA) 00 [id number], Medical injection First dose Bran ch 150 mg on Mon01/01/19 at 1015, Until Discontinu ed, Routine butalbital- 2019- No 2{tbl} 2 tablet, Univers acetaminoph 01-01 Oral, ity of en-caff 14:45: 13:52 ONCE, 1 [place] (ESGIC) 00 :00 dose, [facility] 50-325-40 01/01/19 at Bran ch mg tablet 2 0945, tablet Routine HYDROcodone 2019- No 1{tbl} 1 tablet, Univers -acetaminop 01-01 Oral, ity of hen (NORCO 10:00: 08:55 ONCE, 1 [place] as 5) 5-325 mg 00 :00 dose, Tue Med ical tablet 1 01/01/19 at [facility] tablet 0500, Routine HYDROcodone 2018- 2019- No 1{tbl} 1 tablet, Univers -acetaminop 01-01 Oral, ity of hen (NORCO 06:45: 05:56 ONCE, 1 [place] as 5) 5-325 mg 00 :00 dose, Tue Med ical tablet 1 01/01/19 at [facility] tablet 0145, Routine D5W 0.45% Yes 1000mL at 100 Univ ers NaCl 9- mL/hr, ity of (1/2NS) IV 04:15: 1,000 [place], [place] infusion 00 IV Medical 1,000 mL Infusion, Branch CONTINUOUS , Starting Mon12/31/18 at 2315, Until Discontinu ed, SUSI magnesium 2019-0 2019- No 2g/h 2 g/hr (25 U nivers sulfate in 01-0117 mL/hr), at it y of LR 40 04:15: 16:14 25 mL/hr, [place] gram/500 mL 00 :00 IV Medical IV Solution Infusion, Bra nch CONTINUOUS , Starting Mon12/31/18 at 2315, Until Mon01/01/19 at 1114, SUSI calcium 2019-0 Yes 1000mg 1,000 mg, Uni vers gluconate 01-01 Slow IV ity of 100 mg/mL 04:07: Push, PRN [place] as (10%) 00 - SEE Medical injection INSTRUCTIO Bran ch 1,000 mg NS, Starting Mon12/31/18 at 2307, Until Discontinu ed, Routine, magnesium toxicity magnesium 2018-0 Yes 4g 32 mEq (4 Uni vers sulfate 4 9-17 g), Slow ity of mEq/mL (50 04:07: IV Push, [place] as %) 00 PRN - SEE Medical injection INSTRUCTIO Bran ch 32 mEq NS, Starting 12/31/18 at 2307, Until Discontinu ed, Routine, For seizure activity (patient not on magnesium sulfate) magnesium 2019-0 Yes 2g 16 mEq (2 Uni vers sulfate 4 9-17 g), Slow ity of mEq/mL (50 04:07: IV Push, [place] as %) 00 PRN - SEE Medical injection INSTRUCTIO Bran ch 16 mEq NS, 2 doses, Starting Mon12/31/18 at 2307, Until Discontinu ed, Routine, For seizure activity (patient already on magnesium sulfate) HYDROcodone 2019-0 Yes [id number] 1{tbl} Take 1 Univers -acetaminop 9-17 tablet by ity of hen 5-325 00:00: mouth [place] mg tablet 00 every 6 Medical (six) Branch hours as needed for Pain (scale 4-6). hydroCHLORO 2019-0 Yes [id number] 50mg Take 1 Univers thiazide 50 9-17 tablet by ity of mg tablet 00:00: mouth [place] 00 daily. Medical Branch magnesium 2019-0 2019- No 4g 32 mEq (4 Un brayden sulfate 4 9-14 09-14 g), IV ity of mEq/mL (50 05:15: 04:48 Piggyback, [place] %) 00 :00 ONCE, 1 Medical injection dose, Sat Branc h 32 mEq 12/29/18 at 0015, STAT furosemide 2018- 2019- No 40mg 40 mg, IV U nivers (LASIX) 12-29 Push, ity of injection 04:45: 04:41 ONCE, 1 [place] 40 mg 00 :00 dose, Fri Medical 12/28/18 at Branch 2345, SUSI ondansetron 2018- 2019- No 4mg 4 mg, Slow Univers (ZOFRAN 12-29 IV Push, ity of (PF)) 02:30: 02:09 ONCE, 1 [place] injection 4 00 :00 dose, Fri Med ical mg 12/28/18 at Branch 2130, SUSI morpHINE 2018- 2019- No 4mg 4 mg, Slow Un brayden injection 4 12-29 IV Push, ity of mg 02:30: 02:09 ONCE, 1 [place] 00 :00 dose, Fri Medical 12/28/18 at Branch 2130, STAT furosemide 2018- Yes [id number] 40mg Take 1 Univers (LASIX) 40 9-14 tablet by ity of mg tablet 00:00: mouth [place] 00 daily. [facility] Branch hydrALAZINE Yes [id number] 10mg Take 1 Univers 10 mg 9-14 tablet by ity of tablet 00:00: mouth [place] 00 every 6 Medical (six) Branch hours. furosemide 2018- Yes [id number] 40mg Take 1 Univers (LASIX) 40 9-14 tablet by ity of mg tablet 00:00: mouth [place] 00 daily. Medical Branch hydrALAZINE Yes [id number] 10mg Take 1 Univers 10 mg 9-14 tablet by ity of tablet 00:00: mouth [place] 00 every 6 Medical (six) Branch hours. furosemide Yes [id number] 40mg Take 1 Univers (LASIX) 40 9-14 tablet by ity of mg tablet 00:00: mouth [place] 00 daily. [facility] Branch hydrALAZINE Yes [id number] 10mg Take 1 Univers 10 mg 9-14 tablet by ity of tablet 00:00: mouth [place] 00 every 6 Medical (six) Branch hours. furosemide 2019-0 Yes [id number] 40mg Take 1 Univers (LASIX) 40 9-14 tablet by ity of mg tablet 00:00: mouth [place] 00 daily. Medical Branch hydrALAZINE 2019-0 Yes [id number] 10mg Take 1 Univers 10 mg 9-14 tablet by ity of tablet 00:00: mouth [place] 00 every 6 Medical (six) Branch hours. furosemide 2018- 2019- No [id number] 40mg Take 1 Univers (LASIX) 40 9-14 09-17 tablet by ity of mg tablet 00:00: 00:00 mouth [place] 00 :00 daily. Medical Branch hydrALAZINE 2018- 2019- No [id number] 10mg Take 1 Univers 10 mg 9-14 09-17 tablet by ity of tablet 00:00: 00:00 mouth [place] 00 :00 every 6 Medical (six) Branch hours. vitamin 2019-0 Yes 500ug Take 500 Unive rs B-12 500 9-09 mcg by ity of mcg tablet 18:49: mouth [place] 42 daily. Medical Branch vitamin C 0 Yes 100mg Take 100 Uni vers 100 mg 9-09 mg by ity of tablet 18:49: mouth [place] 42 daily. Medical Branch vitamin 2019-0 Yes 500ug Take 500 Unive rs B-12 500 9-09 mcg by ity of mcg tablet 18:49: mouth [place] 42 daily. Medical Branch vitamin C Yes 100mg Take 100 Uni vers 100 mg 9-09 mg by ity of tablet 18:49: mouth [place] 42 daily. Medical Branch vitamin 2019-0 Yes 500ug Take 500 Unive rs B-12 500 9-09 mcg by ity of mcg tablet 18:49: mouth [place] 42 daily. Medical Branch vitamin C 2018-0 Yes 100mg Take 100 Uni vers 100 [...] [place] 42 daily. Medical Branch vitamin C 2019- Yes 100mg Take 100 Uni vers 100 mg 9-09 mg by ity of tablet 18:49: mouth [place] 42 daily. Medical Branch vitamin 2019-0 Yes 500ug Take 500 Unive rs B-12 500 9-09 mcg by ity of mcg tablet 18:49: mouth [place] 42 daily. Medical Branch vitamin C 2019- Yes 100mg Take 100 Uni vers 100 mg 9-09 mg by ity of tablet 18:49: mouth [place] 42 daily. Medical Branch rho(D) Yes 300ug 300 mcg, Univer s immune 12-24 Intramuscu ity of globulin 06:27: lar, ONCE, [place] as (RHOGAM) 23 For 1 Medical syringe 300 dose, Branch mcg Conditiona l, Routine diphenhydrA Yes 25mg 25 mg, Univ ers MINE 12-24 Oral, ity of (BENADRYL) 06:27: Q6HPRN, [place] tablet 25 19 Starting Medica l mg 12/24/18 Branch at 0127, Until Discontinu ed, Routine, Sleep, Itching ondansetron 2018- Yes 4mg 4 mg, Slow Univers (ZOFRAN 12-24 IV Push, ity of (PF)) 06:27: Q8HPRN, [place] injection 4 19 Starting Medi frank mg [...] 0127, Until Discontinu ed, Routine, Gas docusate Yes 240mg 240 mg, Unive rs calcium 12-24 Oral, ity of (SURFAK) 06:27: QDAILYPRN, [place] as capsule 240 19 Starting Medi frank mg Mon12/24/18 Branch at 0127, Until Discontinu ed, Routine, Constipati on magnesium Yes 30mL 30 mL, Univer s hydroxide 9-09 Oral, ity of (MILK OF 06:27: QDAILYPRN, [place] as MAGNESIA) 19 Starting Medica l 400 mg/5 mL Mon12/24/18 Br anch suspension at 0127, 30 mL Until Discontinu ed, Routine, Constipati on HYDROcodone Yes 1{tbl} 1 tablet, Univers -acetaminop 9- Oral, ity of hen (NORCO) 05:07: Q6HPRN, [place] as 10-325 mg 35 Starting Medica l tablet 1 Mon12/24/18 Branc h tablet at 0007, Until Discontinu ed, Routine, Pain (scale 7-10) docusate Yes [id number] 240mg Take 1 U nivers calcium 240 9-09 capsule by it y of mg capsule 00:00: mouth once [place] 00 daily as Medical needed for Branch Constipati on. HYDROcodone Yes [id number] 1{tbl} Take 1 Univers -acetaminop 9-09 tablet by ity of hen 5-325 00:00: mouth [place] mg tablet 00 every 6 Medical (six) Branch hours as needed for Pain (scale 4-6) (If uncontroll ed by Ibuprofen) . simethicone Yes [id number] 160mg Take 2 Univers 80 mg 9-09 tablets by ity of chewable 00:00: mouth [place] tablet 00 after Medical meals and Branch at bedtime as needed for Gas. docusate Yes [id number] 240mg Take 1 U nivers calcium 240 9-09 capsule by it y of mg capsule 00:00: mouth once [place] 00 daily as Medical needed for Branch Constipati on. HYDROcodone Yes [id number] 1{tbl} Take 1 Univers -acetaminop 9-09 tablet by ity of hen 5-325 00:00: mouth [place] mg tablet 00 every 6 Medical (six) Branch hours as needed for Pain (scale 4-6) (If uncontroll ed by Ibuprofen) . simethicone Yes [id number] 160mg Take 2 Univers 80 mg 9-09 tablets by ity of chewable 00:00: mouth [place] tablet 00 after Medical meals and Branch at bedtime as needed for Gas. docusate Yes [id number] 240mg Take 1 U nivers calcium 240 9-09 capsule by it y of mg capsule 00:00: mouth once [place] 00 daily as Medical needed for Branch Constipati on. HYDROcodone Yes [id number] 1{tbl} Take 1 Univers -acetaminop 9-09 tablet by ity of hen 5-325 00:00: mouth [place] mg tablet 00 every 6 Medical (six) Branch hours as needed for Pain (scale 4-6) (If uncontroll ed by Ibuprofen) . simethicone Yes [id number] 160mg Take 2 Univers 80 mg 9-09 tablets by ity of chewable 00:00: mouth [place] tablet 00 after Medical meals and Branch at bedtime as needed for Gas. docusate Yes [id number] 240mg Take 1 U nivers calcium 240 9-09 capsule by it y of mg capsule 00:00: mouth once [place] 00 daily as Medical needed for Branch Constipati on. HYDROcodone Yes [id number] 1{tbl} Take 1 Univers -acetaminop 9-09 tablet by ity of hen 5-325 00:00: mouth [place] mg tablet 00 every 6 Medical (six) Branch hours as needed for Pain (scale 4-6) (If uncontroll ed by Ibuprofen) . simethicone Yes [id number] 160mg Take 2 Univers 80 mg 9-09 tablets by ity of chewable 00:00: mouth [place] tablet 00 after Medical meals and Branch at bedtime as needed for Gas. docusate Yes [id number] 240mg Take 1 U nivers calcium 240 9-09 capsule by it y of mg capsule 00:00: mouth once [place] 00 daily as Medical needed for Branch Constipati on. HYDROcodone Yes [id number] 1{tbl} Take 1 Univers -acetaminop 9-09 tablet by ity of hen 5-325 00:00: mouth [place] mg tablet 00 every 6 Medical (six) Branch hours as needed for Pain (scale 4-6) (If uncontroll ed by Ibuprofen) . simethicone Yes [id number] 160mg Take 2 Univers 80 mg 9-09 tablets by ity of chewable 00:00: mouth [place] tablet 00 after Medical meals and Branch at bedtime as needed for Gas. docusate 2018- Yes [id number] 240mg Take 1 U nivers calcium 240 9-09 capsule by it y of mg capsule 00:00: mouth once [place] 00 daily as Medical needed for Branch Constipati on. HYDROcodone 2018- Yes [id number] 1{tbl} Take 1 Univers -acetaminop 9-09 tablet by ity of hen 5-325 00:00: mouth [place] mg tablet 00 every 6 Medical (six) Branch hours as needed for Pain (scale 4-6) (If uncontroll ed by Ibuprofen) . simethicone Yes [id number] 160mg Take 2 Univers 80 mg 9-09 tablets by ity of chewable 00:00: mouth [place] tablet 00 after Medical meals and Branch at bedtime as needed for Gas. docusate Yes [id number] 240mg Take 1 U nivers calcium 240 9-09 capsule by it y of mg capsule 00:00: mouth once [place] 00 daily as Medical needed for Branch Constipati on. simethicone Yes [id number] 160mg Take 2 Univers 80 mg 9-09 tablets by ity of chewable 00:00: mouth [place] tablet 00 after Medical meals and Branch at bedtime as needed for Gas. HYDROcodone 2019- No [id number] 1{tbl} Take 1 Univers -acetaminop 9-09 -17 tablet by it y of hen 5-325 00:00: 00:00 mouth [place] mg tablet 00 :00 every 6 Medical (six) Branch hours as needed for Pain (scale 4-6) (If uncontroll ed by Ibuprofen) . bacitracin 2018- Yes Topical Univ ers 500 unit/g 12-23 (Apply To ity of ointment 30 21:00: Affected [place] g tube 00 Areas), Medical QID, First Branch dose on 12/23/18 at 1600, Until Discontinu ed, Routine tranexamic 2018- 2019- No 1000mg 1,000 mg, Univers acid 12-22 IV ity of (CYKLOKAPRO 15:17: 23:29 Piggyback, [place] N) 1,000 mg 00 :00 Q8H ABX, 7 Me dical in NaCl doses, Branch 0.9% (NS) [facility] dose [facility] 12/22/18 at 1030, Last dose on Mon12/24/18 at 1030, 250 mL sennosides 2019- No [...] mg 00 :24 First dose Medical on [place] Branch 12/22/18 at 0900, Until Discontinu ed, Routine ondansetron Yes 4mg 4 mg, Slow Univers (ZOFRAN 12-22 IV Push, ity of (PF)) 13:30: Q6HPRN, [place] injection 4 57 Starting Medi frank mg 12/22/18 Branch at 0830, Until Discontinu ed, Routine, Nausea and Vomiting (N/V) HYDROcodone 2019- No 2{tbl} 2 tablet, Univers -acetaminop 12-22 Oral, ity of hen (NORCO 13:00: 05:07 Q4HPRN, [place] as 5) 5-325 mg 00 :52 Starting Medi frank tablet 2 12/22/18 Branc h tablet at 0800, Until Mon12/24/18 at 0007, Routine, Pain (scale 7-10), If uncontroll ed by Ibuprofen coagulation 2019- No [id number] 10,000 Univers factor viia 12-22 mcg, Slow it y of recomb 12:00: 13:56 IV Push, [place] (NOVOSEVEN) 00 :00 ONCE, 1 Medic al injection dose, Sat Branc h 10,000 mcg 12/22/18 at 0700, SUSI
Us e approved by (Faculty and pager): Suresh SAUNDERS , [id number], HEMATOLOGY /ONCOLOGY HYDROcodone Yes 1{tbl} 1 tablet, Univers -acetaminop 12-22 Oral, ity of hen (NORCO 08:21: Q6HPRN, [place] 5) 5-325 mg 28 Starting Medi frank tablet 1 12/22/18 Branc h tablet at 0321, Until Discontinu ed, Routine, Pain (scale 4-6), If uncontroll ed by Ibuprofen HYDROcodone 2019- No 2{tbl} 2 tablet, Univers -acetaminop 12-22 Oral, ity of hen (NORCO 08:21: 12:50 [...] at Branch 0215, Routine coagulation 2019- No [id number] 10,000 Univers factor viia 12-22 mcg, Slow it y of recomb 07:15: 06:54 IV Push, [place] (NOVOSEVEN) 00 :00 ONCE, 1 Medic al injection dose, Sat Branc h 10,000 mcg 12/22/18 at 0215, Routine
Use approved by (Faculty and pager): Suresh SAUNDERS , [id number], HEMATOLOGY /ONCOLOGY hydrocortis Yes 25mg 25 mg, Univ [facility] one 12-22 Rectal, ity of (ANUSOL-HC) 04:10: BIDPRN, [place] as suppository 37 Starting Medi frank 25 mg 12/21/18 Branch at 2310, Until Discontinu ed, Routine, Rectal itching/pa in coagulation 2019- No 9000ug 9,000 mcg, Univers factor viia 12-22 Slow IV ity of recomb 02:45: 02:13 Push, [place] (NOVOSEVEN) 00 :00 ONCE, 1 Medic al injection dose, Fri Branc h 9,000 mcg 12/21/18 at 2145, Routine
Use approved by (Faculty and pager): Suresh SAUNDERS , [id number], HEMATOLOGY /ONCOLOGY coagulation 2019- No [id number] 10,000 Univers factor viia 12-21 mcg, Slow it y of recomb 20:00: 20:27 IV Push, [place] (NOVOSEVEN) 00 :00 ONCE, 1 Medic al injection dose, Mon Branc h 10,000 mcg 12/21/18 at 1500, SUSI
Us e approved by (Faculty and pager): Suresh SAUNDERS , [id number], HEMATOLOGY /ONCOLOGY morpHINE 30 2019- No Unive rs mg/30 mL 12-21 ity of (fixed 18:00: 06:27 [place] dose) FRAME POLISHER 00 :24 Medical injection Branch coagulation 2019- No [id number] 10,000 Univers factor viia 12-21 mcg, Slow it y of recomb 17:10: 17:55 IV Push, [place] (NOVOSEVEN) 00 :00 ONCE, 1 Medic al injection dose, Mon Branc h 10,000 mcg 12/21/18 at 1215, SUSI
Us e approved by (Faculty and pager): Suresh SAUNDERS , [id number], HEMATOLOGY /ONCOLOGY LR 1000 mL 2019- No at 125 Univ ers + oxytocin 12-21- mL/hr, IV ity of 20 units IV 17:00: 16:59 Infusion, [place] Solution 00 :00 CONTINUOUS Medic al , Starting Branch Mon12/21/18 at 1200, Until 12/22/18 at 1159, SUSI morpHINE 2 2019- No Slow IV Uni vers mg/mL LOAD 12-21 Push, ity of & RESCUE 16:52: 06:27 Routine [place] INJECTION 59 :24 Medical SYRG Branch lactated Yes 1000mL at 75 Univer s ringers IV 906 mL/hr, ity of infusion 16:30: 1,000 mL, [place] 1,000 mL 00 IV Medical Infusion, Branch CONTINUOUS , Starting Mon12/21/18 at 1130, Until Discontinu ed, Routine, PACU morpHINE 2018-0 Yes 2mg 2 mg, Slow Uni vers injection 2 12-21 IV Push, ity of mg 16:26: Q5MIN PRN, [place] 05 5 doses, Medical Starting Branch 12/21/18 at 1126, Until Discontinu ed, Routine, Pain (scale 4-6), PACU ondansetron 2018- No 4mg 4 mg, Slow Univers (ZOFRAN 12-21 IV Push, ity of (PF)) 16:26: 02:53 PRN, 1 [place] injection 4 05 :00 dose, Medical mg Starting Branch Mon12/21/18 at 1126, Until Discontinu ed, Routine, Nausea and Vomiting (N/V), PACU 2019- No 1{tbl} 1 tablet, U [facility] vitamin 12-21 Oral, ity of w/FA 14:00: 06:27 DAILY, [place] (PRENATABS 00 :24 First dose Med ical RX) tablet on Mon Branch 1 tablet 12/21/18 at 0900, Until Discontinu ed, Routine diphenhydrA 2018- No 25mg 25 mg, Uni vers MINE 12-21 Slow IV ity of (BENADRYL) 14:00: 13:46 Push, [place] injection 00 :00 ONCE, 1 Medical 25 mg dose, Fri Branch 12/21/18 at 0900, Routine lactated 2018- [...] Surgical Prophylaxi s
[place] rgical Prophylaxi s: [employer]
Duration of therapy: within 24 hours of surgery clindamycin 2019- No 900mg 900 mg, IV Univers in 5 % 12-21 Piggyback, ity of dextrose 11:23: 15:17 [facility] [place] (CLEOCIN) 04 :00 HOLDING Medical 900 mg/50 ONCE, 1 Branch mL dose, Piggyback Starting 900 mg 12/21/18 at 0623, Until Discontinu ed, 50 mL
Facu lty member approving Restricted medication : OB FACULTY
Reason for Anti-Infec tive: Surgical Prophylaxi s
Surgi frank Prophylaxi s: [employer]
Duration of therapy: within 24 hours of surgery
Restricte d use approved by: [employer] FACULTY sodium 2019- No 30mL 30 mL, Univers citrate-cit 12-21 Oral, ity of [place] acid 11:22: 14:47 [place] (BICITRA[place] [...] of tablet 22:25: mouth [place] 38 daily. [facility] Branch vitamin Yes 500ug Take 500 Unive rs B-12 500 8-19 mcg by ity of mcg tablet 22:25: mouth [place] 38 daily. [facility] Branch vitamin C Yes 100mg Take 100 Uni vers 100 mg 8-19 mg by ity of tablet 22:25: mouth [place] 38 daily. [facility] Branch vitamin Yes 500ug Take 500 Unive rs B-12 500 8-19 mcg by ity of mcg tablet 22:25: mouth [place] 38 daily. [facility] Branch vitamin C Yes 100mg [...] mouth [place] 38 daily. Medical Branch vitamin 2018- Yes 500ug Take 500 Unive rs B-12 500 8-19 mcg by ity of mcg tablet 22:25: mouth [place] 38 daily. Medical Branch vitamin C Yes 100mg Take 100 Uni vers 100 mg 8-19 mg by ity of tablet 22:25: mouth [place] 38 daily. Medical Branch vitamin 2018- Yes 500ug [...] [place] 47 daily. Medical Branch vitamin C Yes 100mg Take 100 Uni vers 100 mg 8-08 mg by ity of tablet 13:53: mouth [place] 47 daily. Medical Branch vitamin C 2018- Yes 100mg Take 100 Uni vers 100 mg 8-08 mg by ity of tablet 13:53: mouth [place] 47 daily. Medical Branch vitamin C Yes 100mg [...] mouth [place] 46 daily. Medical Branch vitamin 2019- Yes 500ug [...] Pain (scale 1-3), Pain (scale 4-6) vitamin 2019- Yes 500ug Take 500 Unive [...] mouth [place] 18 daily. Medical Branch vitamin Yes 500ug Take 500 Unive rs B-12 500 7-15 mcg by ity of mcg tablet 23:57: mouth [place] 18 daily. Medical Branch vitamin C Yes 100mg Take 100 Uni vers 100 mg 7-15 mg by ity of tablet 23:57: mouth [place] 18 daily. Medical Branch vitamin Yes 500ug Take 500 Unive rs B-12 500 7-15 mcg by ity of mcg tablet 23:57: mouth [place] 18 daily. Medical Branch vitamin C Yes 100mg Take 100 Uni vers 100 mg 7-15 mg by ity of tablet 23:57: mouth [place] 18 daily. Medical Branch vitamin Yes 500ug Take 500 Unive rs B-12 500 7-15 mcg by ity of mcg tablet 23:57: mouth [place] 18 daily. Medical Branch vitamin C Yes 100mg Take 100 Uni vers 100 mg 7-15 mg by ity of tablet 23:57: mouth [place] 18 daily. Medical Branch vitamin Yes 500ug Take 500 Unive rs B-12 500 7-15 mcg by ity of mcg tablet 23:57: mouth [place] 18 daily. Medical Branch vitamin C Yes 100mg Take 100 Uni vers 100 mg 7-15 mg by ity of tablet 23:57: mouth [place] 18 daily. Medical Branch ferrous 2019-0 Yes [id number] 325mg Take 1 Un brayden sulfate 325 7-02 tablet by ity of mg (65 mg 00:00: mouth 2 [place] iron) 00 (two) Medical tablet times Branch daily. ferrous 2019-0 Yes [id number] 325mg Take 1 Un brayden sulfate 325 7-02 tablet by ity of mg (65 mg 00:00: mouth 2 [place] iron) 00 (two) Medical tablet times Branch daily. ferrous 2019-0 Yes [id number] 325mg Take 1 Un brayden sulfate 325 7-02 tablet by ity of mg (65 mg 00:00: mouth 2 [place] iron) 00 (two) Medical tablet times Branch daily. ferrous 2019-0 Yes [id number] 325mg Take 1 Un brayden sulfate 325 7-02 tablet by ity of mg (65 mg 00:00: mouth 2 [place] iron) 00 (two) Medical tablet times Branch daily. ferrous 2019-0 Yes [id number] 325mg Take 1 Un brayden sulfate 325 7-02 tablet by ity of mg (65 mg 00:00: mouth 2 [place] iron) 00 (two) Medical tablet times Branch daily. ferrous 2019-0 Yes [id number] 325mg Take 1 Un brayden sulfate 325 7-02 tablet by ity of mg (65 mg 00:00: mouth 2 [place] iron) 00 (two) Medical tablet times Branch daily. ferrous 2019-0 Yes [id number] 325mg Take 1 Un brayden sulfate 325 7-02 tablet by ity of mg (65 mg 00:00: mouth 2 [place] iron) 00 (two) Medical tablet times Branch daily. ferrous 2018-0 Yes [id number] 325mg Take 1 Un brayden sulfate 325 7-02 tablet by ity of mg (65 mg 00:00: mouth 2 [place] iron) 00 (two) Medical tablet times Branch daily. ferrous 2019-0 Yes [id number] 325mg Take 1 Un brayden sulfate 325 7-02 tablet by ity of mg (65 mg 00:00: mouth 2 [place] iron) 00 (two) Medical tablet times Branch daily. ferrous 2019-0 Yes [id number] 325mg Take 1 Un brayden sulfate 325 7-02 tablet by ity of mg (65 mg 00:00: mouth 2 [place] iron) 00 (two) Medical tablet times Branch daily. ferrous 2019-0 Yes [id number] 325mg Take 1 Un brayden sulfate 325 7-02 tablet by ity of mg (65 mg 00:00: mouth 2 [place] iron) 00 (two) Medical tablet times Branch daily. ferrous 2019-0 Yes [id number] 325mg Take 1 Un brayden sulfate 325 7-02 tablet by ity of mg (65 mg 00:00: mouth 2 [place] iron) 00 (two) Medical tablet times Branch daily. ferrous 2019-0 Yes [id number] 325mg Take 1 Un brayden sulfate 325 7-02 tablet by ity of mg (65 mg 00:00: mouth 2 [place] iron) 00 (two) Medical tablet times Branch daily. ferrous 2019-0 Yes [id number] 325mg Take 1 Un brayden sulfate 325 7-02 tablet by ity of mg (65 mg 00:00: mouth 2 [place] iron) 00 (two) Medical tablet times Branch daily. ferrous 2019-0 Yes [id number] 325mg Take 1 Un brayden sulfate 325 7-02 tablet by ity of mg (65 mg 00:00: mouth 2 [place] iron) 00 (two) Medical tablet times Branch daily. ferrous 2019-0 Yes [id number] 325mg Take 1 Un brayden sulfate 325 7-02 tablet by ity of mg (65 mg 00:00: mouth 2 [place] iron) 00 (two) Medical tablet times Branch daily. ferrous 2019-0 Yes [id number] 325mg Take 1 Un brayden sulfate 325 7-02 tablet by ity of mg (65 mg 00:00: mouth 2 [place] iron) 00 (two) Medical tablet times Branch daily. ferrous 2018-0 Yes [id number] 325mg Take 1 Un brayden sulfate 325 7-02 tablet by ity of mg (65 mg 00:00: mouth 2 [place] iron) 00 (two) Medical tablet times Branch daily. ferrous 2018-0 Yes [id number] 325mg Take 1 Un brayden sulfate 325 7-02 tablet by ity of mg (65 mg 00:00: mouth 2 [place] iron) 00 (two) Medical tablet times Branch daily. ferrous 2019-0 Yes [id number] 325mg Take 1 Un brayden sulfate 325 7-02 tablet by ity of mg (65 mg 00:00: mouth 2 [place] iron) 00 (two) Medical tablet times Branch daily. ferrous 2018-0 Yes [id number] 325mg Take 1 Un brayden sulfate 325 7-02 tablet by ity of mg (65 mg 00:00: mouth 2 [place] iron) 00 (two) Medical tablet times Branch daily. ferrous 2019-0 Yes [id number] 325mg Take 1 Un brayden sulfate 325 7-02 tablet by ity of mg (65 mg 00:00: mouth 2 [place] iron) 00 (two) Medical tablet times Branch daily. ferrous 2019-0 Yes [id number] 325mg Take 1 Un brayden sulfate 325 7-02 tablet by ity of mg (65 mg 00:00: mouth 2 [place] iron) 00 (two) Medical tablet times Branch daily. ferrous 2019-0 Yes [id number] 325mg Take 1 Un brayden sulfate 325 7-02 tablet by ity of mg (65 mg 00:00: mouth 2 [place] iron) 00 (two) Medical tablet times Branch daily. ferrous 2019-0 Yes [id number] 325mg Take 1 Un brayden sulfate 325 7-02 tablet by ity of mg (65 mg 00:00: mouth 2 [place] iron) 00 (two) Medical tablet times Branch daily. ferrous 2018-0 Yes [id number] 325mg Take 1 Un brayden sulfate 325 7-02 tablet by ity of mg (65 mg 00:00: mouth 2 [place] iron) 00 (two) Medical tablet times Branch daily. ferrous 2019-0 Yes [id number] 325mg Take 1 Un brayden sulfate 325 7-02 tablet by ity of mg (65 mg 00:00: mouth 2 [place] iron) 00 (two) Medical tablet times Branch daily. ferrous 2018-0 Yes [id number] 325mg Take 1 Un brayden sulfate 325 7-02 tablet by ity of mg (65 mg 00:00: mouth 2 [place] iron) 00 (two) Medical tablet times Branch daily. ferrous 2018-0 Yes [id number] 325mg Take 1 Un brayden sulfate 325 7-02 tablet by ity of mg (65 mg 00:00: mouth 2 [place] iron) 00 (two) Medical tablet times Branch daily. ferrous 2019-0 Yes [id number] 325mg Take 1 Un brayden sulfate 325 7-02 tablet by ity of mg (65 mg 00:00: mouth 2 [place] iron) 00 (two) Medical tablet times Branch daily. ferrous 2018-0 Yes [id number] 325mg Take 1 Un brayden sulfate 325 7-02 tablet by ity of mg (65 mg 00:00: mouth 2 [place] iron) 00 (two) Medical tablet times Branch daily. ferrous 2019-0 Yes [id number] 325mg Take 1 Un brayden sulfate 325 7-02 tablet by ity of mg (65 mg 00:00: mouth 2 [place] iron) 00 (two) Medical tablet times Branch daily. ferrous 2019-0 Yes [id number] 325mg Take 1 Un brayden sulfate 325 7-02 tablet by ity of mg (65 mg 00:00: mouth 2 [place] iron) 00 (two) Medical tablet times Branch daily. ferrous 2019-0 Yes [id number] 325mg Take 1 Un brayden sulfate 325 7-02 tablet by ity of mg (65 mg 00:00: mouth 2 [place] iron) 00 (two) Medical tablet times Branch daily. ferrous 2019-0 Yes [id number] 325mg Take 1 Un brayden sulfate 325 7-02 tablet by ity of mg (65 mg 00:00: mouth 2 [place] iron) 00 (two) Medical tablet times Branch daily. ferrous 2019-0 Yes [id number] 325mg Take 1 Un brayden sulfate 325 7-02 tablet by ity of mg (65 mg 00:00: mouth 2 [place] iron) 00 (two) Medical tablet times Branch daily. ferrous 2019-0 Yes [id number] 325mg Take 1 Un brayden sulfate 325 7-02 tablet by ity of mg (65 mg 00:00: mouth 2 [place] iron) 00 (two) Medical tablet times Branch daily. ferrous 2019-0 Yes [id number] 325mg Take 1 Un brayden sulfate 325 7-02 tablet by ity of mg (65 mg 00:00: mouth 2 [place] iron) 00 (two) Medical tablet times Branch daily. PNV 67-iron 2018- Yes [id number] 1{each} Take 1 Univers ps-folate 4-05 Each by ity of no.1-dha 00:00: mouth [place] (VITAFOL 00 daily. Medical ULTRA) 29 Branch mg iron- 1 mg-200 mg Cap PNV 67-iron 2018- Yes [id number] 1{each} Take 1 Univers ps-folate 4-05 Each by ity of no.1-dha 00:00: mouth [place] (VITAFOL 00 daily. Medical ULTRA) 29 Branch mg iron- 1 mg-200 mg Cap PNV 67-iron 2018- Yes [id number] 1{each} Take 1 Univers ps-folate 4-05 Each by ity of no.1-dha 00:00: mouth [place] (VITAFOL 00 daily. Medical ULTRA) 29 Branch mg iron- 1 mg-200 mg Cap PNV 67-iron 2019- Yes [id number] 1{each} Take 1 Univers ps-folate 4-05 Each by ity of no.1-dha 00:00: mouth [place] (VITAFOL 00 daily. Medical ULTRA) 29 Branch mg iron- 1 mg-200 mg Cap PNV 67-iron 2019-0 Yes [id number] 1{each} Take 1 Univers ps-folate 4-05 Each by ity of no.1-dha 00:00: mouth [place] (VITAFOL 00 daily. Medical ULTRA) 29 Branch mg iron- 1 mg-200 mg Cap PNV 67-iron 2019-0 Yes [id number] 1{each} Take 1 Univers ps-folate 4-05 Each by ity of no.1-dha 00:00: mouth [place] (VITAFOL 00 daily. Medical ULTRA) 29 Branch mg iron- 1 mg-200 mg Cap PNV 67-iron 2019-0 Yes [id number] 1{each} Take 1 Univers ps-folate 4-05 Each by ity of no.1-dha 00:00: mouth [place] (VITAFOL 00 daily. Medical ULTRA) 29 Branch mg iron- 1 mg-200 mg Cap PNV 67-iron 2019-0 Yes [id number] 1{each} Take 1 Univers ps-folate 4-05 Each by ity of no.1-dha 00:00: mouth [place] (VITAFOL 00 daily. Medical ULTRA) 29 Branch mg iron- 1 mg-200 mg Cap PNV 67-iron 2019-0 Yes [id number] 1{each} Take 1 Univers ps-folate 4-05 Each by ity of no.1-dha 00:00: mouth [place] (VITAFOL 00 daily. Medical ULTRA) 29 Branch mg iron- 1 mg-200 mg Cap PNV 67-iron 2019-0 Yes [id number] 1{each} Take 1 Univers ps-folate 4-05 Each by ity of no.1-dha 00:00: mouth [place] (VITAFOL 00 daily. Medical ULTRA) 29 Branch mg iron- 1 mg-200 mg Cap PNV 67-iron 2019-0 Yes [id number] 1{each} Take 1 Univers ps-folate 4-05 Each by ity of no.1-dha 00:00: mouth [place] (VITAFOL 00 daily. Medical ULTRA) 29 Branch mg iron- 1 mg-200 mg Cap PNV 67-iron 2019-0 Yes [id number] 1{each} Take 1 Univers ps-folate 4-05 Each by ity of no.1-dha 00:00: mouth [place] (VITAFOL 00 daily. Medical ULTRA) 29 Branch mg iron- 1 mg-200 mg Cap PNV 67-iron 2019-0 Yes [id number] 1{each} Take 1 Univers ps-folate 4-05 Each by ity of no.1-dha 00:00: mouth [place] (VITAFOL 00 daily. Medical ULTRA) 29 Branch mg iron- 1 mg-200 mg Cap PNV 67-iron 2019-0 Yes [id number] 1{each} Take 1 Univers ps-folate 4-05 Each by ity of no.1-dha 00:00: mouth [place] (VITAFOL 00 daily. Medical ULTRA) 29 Branch mg iron- 1 mg-200 mg Cap PNV 67-iron 2019-0 Yes [id number] 1{each} Take 1 Univers ps-folate 4-05 Each by ity of no.1-dha 00:00: mouth [place] (VITAFOL 00 daily. Medical ULTRA) 29 Branch mg iron- 1 mg-200 mg Cap PNV 67-iron 2019-0 Yes [id number] 1{each} Take 1 Univers ps-folate 4-05 Each by ity of no.1-dha 00:00: mouth [place] (VITAFOL 00 daily. Medical ULTRA) 29 Branch mg iron- 1 mg-200 mg Cap PNV 67-iron 2019-0 Yes [id number] 1{each} Take 1 Univers ps-folate 4-05 Each by ity of no.1-dha 00:00: mouth [place] (VITAFOL 00 daily. Medical ULTRA) 29 Branch mg iron- 1 mg-200 mg Cap PNV 67-iron 2019-0 Yes [id number] 1{each} Take 1 Univers ps-folate 4-05 Each by ity of no.1-dha 00:00: mouth [place] (VITAFOL 00 daily. Medical ULTRA) 29 Branch mg iron- 1 mg-200 mg Cap PNV 67-iron 2019-0 Yes [id number] 1{each} Take 1 Univers ps-folate 4-05 Each by ity of no.1-dha 00:00: mouth [place] (VITAFOL 00 daily. Medical ULTRA) 29 Branch mg iron- 1 mg-200 mg Cap PNV 67-iron 2019-0 Yes [id number] 1{each} Take 1 Univers ps-folate 4-05 Each by ity of no.1-dha 00:00: mouth [place] (VITAFOL 00 daily. Medical ULTRA) 29 Branch mg iron- 1 mg-200 mg Cap PNV 67-iron 2019-0 Yes [id number] 1{each} Take 1 Univers ps-folate 4-05 Each by ity of no.1-dha 00:00: mouth [place] (VITAFOL 00 daily. Medical ULTRA) 29 Branch mg iron- 1 mg-200 mg Cap PNV 67-iron 2019-0 Yes [id number] 1{each} Take 1 Univers ps-folate 4-05 Each by ity of no.1-dha 00:00: mouth [place] (VITAFOL 00 daily. Medical ULTRA) 29 Branch mg iron- 1 mg-200 mg Cap PNV 67-iron 2019-0 Yes [id number] 1{each} Take 1 Univers ps-folate 4-05 Each by ity of no.1-dha 00:00: mouth [place] (VITAFOL 00 daily. Medical ULTRA) 29 Branch mg iron- 1 mg-200 mg Cap PNV 67-iron 2019-0 Yes [id number] 1{each} Take 1 Univers ps-folate 4-05 Each by ity of no.1-dha 00:00: mouth [place] (VITAFOL 00 daily. Medical ULTRA) 29 Branch mg iron- 1 mg-200 mg Cap PNV 67-iron 2019-0 Yes [id number] 1{each} Take 1 Univers ps-folate 4-05 Each by ity of no.1-dha 00:00: mouth [place] (VITAFOL 00 daily. Medical ULTRA) 29 Branch mg iron- 1 mg-200 mg Cap PNV 67-iron 2019-0 Yes [id number] 1{each} Take 1 Univers ps-folate 4-05 Each by ity of no.1-dha 00:00: mouth [place] (VITAFOL 00 daily. Medical ULTRA) 29 Branch mg iron- 1 mg-200 mg Cap PNV 67-iron 2019-0 Yes [id number] 1{each} Take 1 Univers ps-folate 4-05 Each by ity of no.1-dha 00:00: mouth [place] (VITAFOL 00 daily. Medical ULTRA) 29 Branch mg iron- 1 mg-200 mg Cap PNV 67-iron 2019-0 Yes [id number] 1{each} Take 1 Univers ps-folate 4-05 Each by ity of no.1-dha 00:00: mouth [place] (VITAFOL 00 daily. Medical ULTRA) 29 Branch mg iron- 1 mg-200 mg Cap PNV 67-iron 2019-0 Yes [id number] 1{each} Take 1 Univers ps-folate 4-05 Each by ity of no.1-dha 00:00: mouth [place] (VITAFOL 00 daily. Medical ULTRA) 29 Branch mg iron- 1 mg-200 mg Cap PNV 67-iron 2019-0 Yes [id number] 1{each} Take 1 Univers ps-folate 4-05 Each by ity of no.1-dha 00:00: mouth [place] (VITAFOL 00 daily. Medical ULTRA) 29 Branch mg iron- 1 mg-200 mg Cap PNV 67-iron 2019-0 Yes [id number] 1{each} Take 1 Univers ps-folate 4-05 Each by ity of no.1-dha 00:00: mouth [place] (VITAFOL 00 daily. Medical ULTRA) 29 Branch mg iron- 1 mg-200 mg Cap PNV 67-iron 2019-0 Yes [id number] 1{each} Take 1 Univers ps-folate 4-05 Each by ity of no.1-dha 00:00: mouth [place] (VITAFOL 00 daily. Medical ULTRA) 29 Branch mg iron- 1 mg-200 mg Cap PNV 67-iron 2019-0 Yes [id number] 1{each} Take 1 Univers ps-folate 4-05 Each by ity of no.1-dha 00:00: mouth [place] (VITAFOL 00 daily. Medical ULTRA) 29 Branch mg iron- 1 mg-200 mg Cap PNV 67-iron 2019-0 Yes [id number] 1{each} Take 1 Univers ps-folate 4-05 Each by ity of no.1-dha 00:00: mouth [place] (VITAFOL 00 daily. Medical ULTRA) 29 Branch mg iron- 1 mg-200 mg Cap PNV 67-iron 2019-0 Yes [id number] 1{each} Take 1 Univers ps-folate 4-05 Each by ity of no.1-dha 00:00: mouth [place] (VITAFOL 00 daily. Medical ULTRA) 29 Branch mg iron- 1 mg-200 mg Cap PNV 67-iron 2019-0 Yes [id number] 1{each} Take 1 Univers ps-folate 4-05 Each by ity of no.1-dha 00:00: mouth [place] (VITAFOL 00 daily. Medical ULTRA) 29 Branch mg iron- 1 mg-200 mg Cap PNV 67-iron 2019-0 Yes [id number] 1{each} Take 1 Univers ps-folate 4-05 Each by ity of no.1-dha 00:00: mouth [place] (VITAFOL 00 daily. Medical ULTRA) 29 Branch mg iron- 1 mg-200 mg Cap PNV 67-iron 2019-0 Yes [id number] 1{each} Take 1 Univers ps-folate 4-05 Each by ity of no.1-dha 00:00: mouth [place] (VITAFOL 00 daily. Medical ULTRA) 29 Branch mg iron- 1 mg-200 mg Cap Immunizations Ordered Filled Immunization Date Status Comments Sour e Immunization Name Name TDAP (ADACEL) 2018-10-15 Completed University of VACCINE 00:00:00 [facility] [place] [facility] TDAP (ADACEL) 2018-10-15 Completed University of VACCINE 00:00:00 [facility] [place] [facility] TDAP (ADACEL) 2018-10-15 Completed University of VACCINE 00:00:00 [facility] [place] [facility] TDAP (ADACEL) 2018-10-15 Completed University of VACCINE 00:00:00 [facility] [place] [facility] TDAP (ADACEL) 2018-10-15 Completed University of VACCINE 00:00:00 [facility] [place] [facility] TDAP (ADACEL) 2018-10-15 Completed University of VACCINE 00:00:00 [facility] [place] [facility] TDAP (ADACEL) 2018-10-15 Completed University of VACCINE 00:00:00 [facility] [place] [facility] TDAP (ADACEL) 2018-10-15 Completed University of VACCINE 00:00:00 [facility] [place] [facility] TDAP (ADACEL) 2018-10-15 Completed University of VACCINE 00:00:00 [facility] [place] [facility] TDAP (ADACEL) 2018-10-15 Completed University of VACCINE 00:00:00 [facility] [place] [facility] TDAP (ADACEL) 2018-10-15 Completed University of VACCINE 00:00:00 [facility] [place] [facility] TDAP (ADACEL) 2018-10-15 Completed University of VACCINE 00:00:00 [facility] [place] [facility] TDAP (ADACEL) 2018-10-15 Completed University of VACCINE 00:00:00 [facility] [place] [facility] TDAP (ADACEL) 2018-10-15 Completed University of VACCINE 00:00:00 [facility] [place] [facility] TDAP (ADACEL) 2018-10-15 Completed University of VACCINE 00:00:00 [facility] [place] [facility] TDAP (ADACEL) 2018-10-15 Completed University of VACCINE 00:00:00 [facility] [place] [facility] TDAP (ADACEL) 2018-10-15 Completed University of VACCINE 00:00:00 [facility] [place] [facility] TDAP (ADACEL) 2018-10-15 Completed University of VACCINE 00:00:00 [facility] [place] [facility] TDAP (ADACEL) 2018-10-15 Completed University of VACCINE 00:00:00 [place] [facility] TDAP (ADACEL) 2018-10-15 Completed University of VACCINE 00:00:00 [facility] TDAP (ADACEL) 2018-10-15 Completed University of VACCINE 00:00:00 [facility] TDAP (ADACEL) 2018-10-15 Completed University of VACCINE 00:00:00 [facility] Branch TDAP (ADACEL) 2018-10-15 Completed University of VACCINE 00:00:00 [facility] TDAP (ADACEL) 2018-10-15 Completed University of VACCINE 00:00:00 [facility] TDAP (ADACEL) 2018-10-15 Completed University of VACCINE 00:00:00 [facility] TDAP (ADACEL) 2018-10-15 Completed University of VACCINE 00:00:00 [facility] TDAP (ADACEL) 2018-10-15 Completed University of VACCINE 00:00:00 [facility] [place] [facility] TDAP (ADACEL) 2018-10-15 Completed University of VACCINE 00:00:00 [facility] [place] [facility] TDAP (ADACEL) 2018-10-15 Completed University of VACCINE 00:00:00 [facility] [place] [facility] TDAP (ADACEL) 2018-10-15 Completed University of VACCINE 00:00:00 [facility] [place] [facility] TDAP (ADACEL) 2018-10-15 Completed University of VACCINE 00:00:00 [facility] Branch TDAP (ADACEL) 2018-10-15 Completed University of VACCINE 00:00:00 [facility] [place] [facility] TDAP (ADACEL) 2018-10-15 Completed University of VACCINE 00:00:00 [facility] TDAP (ADACEL) 2018-10-15 Completed University of VACCINE 00:00:00 [facility] TDAP (ADACEL) 2018-10-15 Completed University of VACCINE 00:00:00 [facility] TDAP (ADACEL) 2018-10-15 Completed University of VACCINE 00:00:00 [facility] TDAP (ADACEL) 2018-10-15 Completed University of VACCINE 00:00:00 [facility] [place] [facility] TDAP (ADACEL) 2018-10-15 Completed University of VACCINE 00:00:00 [facility] [place] [facility] Vital Signs Vital Name Observation Time Observation Value Comments Source Systolic blood 2019-01-01 14:00:00 124 mm[Hg] Univer sity of pressure [facility] [place] [facility] Diastolic blood 2019-01-01 14:00:00 85 mm[Hg] Unive rsity of pressure [place] [facility] Heart rate 2019-01-01 14:00:00 60 /min [facility] [place] [facility] Respiratory rate 2019-01-01 14:00:00 18 /min [facility] ers[facility] [place] [facility] Oxygen saturation in 2019-01-01 14:00:00 98 /min University of Arterial blood by [facility] frank Pulse oximetry Branch Body temperature 2019-01-01 13:15:00 36.78 Radha [facility] [place] [facility] Body weight 2019-01-01 03:07:00 101.651 kg [facility] [place] [facility] BMI 2019-01-01 03:07:00 36.17 kg/m2 [facility] [place] [facility] Systolic blood 2019-01-01 14:00:00 124 mm[Hg] Univer sity of pressure [place] [facility] Diastolic blood 2019-01-01 14:00:00 85 mm[Hg] Unive rsity of pressure [place] [facility] Heart rate 2019-01-01 14:00:00 60 /min [facility] [place] [facility] Respiratory rate 2019-01-01 14:00:00 18 /min [facility] [place] [facility] Oxygen saturation in 2019-01-01 14:00:00 98 /min University of Arterial blood by [facility] frank Pulse oximetry Branch Body temperature 2019-01-01 13:15:00 36.78 Radha [facility] [place] [facility] Body weight 2019-01-01 03:07:00 101.651 kg [facility] [place] [facility] BMI 2019-01-01 03:07:00 36.17 kg/m2 [facility] [place] [facility] Systolic blood 2018-12-31 20:26:00 162 mm[Hg] Univer sity of pressure [place] [facility] Diastolic blood 2018-12-31 20:26:00 90 mm[Hg] Unive rsity of pressure [place] [facility] Heart rate 2018-12-31 20:21:00 67 /min [facility] [place] [facility] Body temperature 2018-12-31 20:21:00 37.06 Radha [facility] [place] [facility] Respiratory rate 2018-12-31 20:21:00 16 /min [facility] [place] [facility] Body height 2018-12-31 20:21:00 167.6 cm [facility] [place] [facility] Body weight 2018-12-31 20:21:00 102.116 kg [facility] [place] [facility] BMI 2018-12-31 20:21:00 36.34 kg/m2 [facility] [place] [facility] Systolic blood 2018-12-31 20:26:00 162 mm[Hg] Univer sity of pressure [place] [facility] Diastolic blood 2018-12-31 20:26:00 90 mm[Hg] Unive rsity of pressure [place] [facility] Heart rate 2018-12-31 20:21:00 67 /min [facility] [place] [facility] Body temperature 2018-12-31 20:21:00 37.06 Radha [facility] [place] [facility] Respiratory rate 2018-12-31 20:21:00 16 /min [facility] [place] [facility] Body height 2018-12-31 20:21:00 167.6 cm [facility] [place] [facility] Body weight 2018-12-31 20:21:00 102.116 kg [facility] [place] [facility] BMI 2018-12-31 20:21:00 36.34 kg/m2 [facility] [place] [facility] Systolic blood 2018-12-29 05:30:00 133 mm[Hg] [facility] Diastolic blood 2018-12-29 05:30:00 77 mm[Hg] [facility] Heart rate 2018-12-29 05:30:00 52 /min [facility] Respiratory rate 2018-12-29 05:30:00 15 /min Univ ersity of [facility] Oxygen saturation in 2018-12-29 05:30:00 98 /min [facility] of Arterial blood by [facility] Pulse oximetry Branch Body temperature 2018-12-29 00:43:00 37.17 Radha [facility] Body height 2018-12-29 00:43:00 167.6 cm [facility] Body weight 2018-12-29 00:43:00 108.863 kg [facility] BMI 2018-12-29 00:43:00 38.74 kg/m2 [facility] Systolic blood 2018-12-29 05:30:00 133 mm[Hg] [facility] Diastolic blood 2018-12-29 05:30:00 77 mm[Hg] [facility] Heart rate 2018-12-29 05:30:00 52 /min [facility] Respiratory rate 2018-12-29 05:30:00 15 /min Univ [facility] Oxygen saturation in 2018-12-29 05:30:00 98 /min [facility] of Arterial blood by [facility] Pulse oximetry Branch Body temperature 2018-12-29 00:43:00 37.17 Radha [facility] Body height 2018-12-29 00:43:00 167.6 cm [facility] Body weight 2018-12-29 00:43:00 108.863 kg [facility] BMI 2018-12-29 00:43:00 38.74 kg/m2 [facility] Systolic blood 2018-12-28 18:47:00 172 mm[Hg] [facility] Diastolic blood 2018-12-28 18:47:00 90 mm[Hg] [facility] Heart rate 2018-12-28 18:47:00 52 /min [facility] Body temperature 2018-12-28 18:32:00 36.89 Radha [facility] Respiratory rate 2018-12-28 18:32:00 16 /min [facility] Body height 2018-12-28 18:32:00 165.1 cm [facility] Body weight 2018-12-28 18:32:00 109.118 kg [facility] BMI 2018-12-28 18:32:00 40.03 kg/m2 [facility] Systolic blood 2018-12-28 18:47:00 172 mm[Hg] [facility] Diastolic blood 2018-12-28 18:47:00 90 mm[Hg] [facility] Heart rate 2018-12-28 18:47:00 52 /min [facility] Body temperature 2018-12-28 18:32:00 36.89 Radha [facility] Respiratory rate 2018-12-28 18:32:00 16 /min [facility] Body height 2018-12-28 18:32:00 165.1 cm [facility] Body weight 2018-12-28 18:32:00 109.118 kg [facility] BMI 2018-12-28 18:32:00 40.03 kg/m2 [facility] Body temperature 2018-12-24 13:00:00 36.61 Radha [facility] Systolic blood 2018-12-24 09:00:00 119 mm[Hg] [facility] Diastolic blood 2018-12-24 09:00:00 79 mm[Hg] [facility] Heart rate 2018-12-24 09:00:00 69 /min [facility] Respiratory rate 2018-12-24 09:00:00 18 /min [facility] Oxygen saturation in 2018-12-24 09:00:00 99 /min [facility] blood by [place] [facility] Pulse oximetry Branch Body height 2018-12-21 15:30:00 165.1 cm [facility] Body weight 2018-12-21 15:30:00 108.636 kg [facility] BMI 2018-12-21 15:30:00 39.85 kg/m2 [facility] Body temperature 2018-12-24 13:00:00 36.61 Radha [facility] Systolic blood 2018-12-24 09:00:00 119 mm[Hg] [facility] Diastolic blood 2018-12-24 09:00:00 79 mm[Hg] [facility] Heart rate 2018-12-24 09:00:00 69 /min [facility] Respiratory rate 2018-12-24 09:00:00 18 /min [facility] Oxygen saturation in 2018-12-24 09:00:00 99 /min [facility] Ar[facility]ial blood by [place] [facility] Pulse oximetry Branch Body height 2018-12-21 15:30:00 165.1 cm [facility] Body weight 2018-12-21 15:30:00 108.636 kg [facility] BMI 2018-12-21 15:30:00 39.85 kg/m2 [facility] Systolic blood 2018-12-20 15:34:00 113 mm[Hg] [facility] Diastolic blood 2018-12-20 15:34:00 72 mm[Hg] [facility] Heart rate 2018-12-20 15:34:00 90 /min [facility] Body temperature 2018-12-20 15:34:00 36.78 Radha [facility] Respiratory rate 2018-12-20 15:34:00 16 /min [facility] Body weight 2018-12-20 15:34:00 108.636 kg [facility] BMI 2018-12-20 15:34:00 39.85 kg/m2 [facility] Systolic blood 2018-12-20 15:34:00 113 mm[Hg] [facility] Diastolic blood 2018-12-20 15:34:00 72 mm[Hg] [facility] Heart rate 2018-12-20 15:34:00 90 /min [facility] Body temperature 2018-12-20 15:34:00 36.78 Radha [facility] Respiratory rate 2018-12-20 15:34:00 16 /min [facility] Body weight 2018-12-20 15:34:00 108.636 kg [facility] BMI 2018-12-20 15:34:00 39.85 kg/m2 [facility] Systolic blood 2018-12-18 17:58:00 119 mm[Hg] [facility] Diastolic blood 2018-12-18 17:58:00 70 mm[Hg] [facility] Heart rate 2018-12-18 17:58:00 80 /min [facility] Body temperature 2018-12-18 17:58:00 36.78 Radha [facility] Respiratory rate 2018-12-18 17:58:00 16 /min [facility] Body height 2018-12-18 17:58:00 165.1 cm [facility] Body weight 2018-12-18 17:58:00 109.43 kg [facility] BMI 2018-12-18 17:58:00 40.15 kg/m2 [facility] Systolic blood 2018-12-18 17:58:00 119 mm[Hg] [facility] Diastolic blood 2018-12-18 17:58:00 70 mm[Hg] [facility] Heart rate 2018-12-18 17:58:00 80 /min [facility] Body temperature 2018-12-18 17:58:00 36.78 Radha [facility] Respiratory rate 2018-12-18 17:58:00 16 /min [facility] Body height 2018-12-18 17:58:00 165.1 cm [facility] Body weight 2018-12-18 17:58:00 109.43 kg [facility] BMI 2018-12-18 17:58:00 40.15 kg/m2 [facility] Systolic blood 2018-12-13 18:42:00 110 mm[Hg] [facility] Diastolic blood 2018-12-13 18:42:00 56 mm[Hg] [facility] Heart rate 2018-12-13 18:42:00 74 /min [facility] Body temperature 2018-12-13 18:42:00 36.72 Radha [facility] Respiratory rate 2018-12-13 18:42:00 18 /min [facility] Body height 2018-12-13 18:42:00 165.1 cm [facility] Body weight 2018-12-13 18:42:00 109.544 kg [facility] BMI 2018-12-13 18:42:00 40.19 kg/m2 [facility] Systolic blood 2018-12-13 18:42:00 110 mm[Hg] [facility] Diastolic blood 2018-12-13 18:42:00 56 mm[Hg] [facility] Heart rate 2018-12-13 18:42:00 74 /min [facility] Body temperature 2018-12-13 18:42:00 36.72 Radha [facility] Respiratory rate 2018-12-13 18:42:00 18 /min [facility] Body height 2018-12-13 18:42:00 165.1 cm [facility] Body weight 2018-12-13 18:42:00 109.544 kg [facility] BMI 2018-12-13 18:42:00 40.19 kg/m2 [facility] Systolic blood 2018-12-10 15:42:00 98 mm[Hg] [facility] Diastolic blood 2018-12-10 15:42:00 66 mm[Hg] [facility] Heart rate 2018-12-10 15:42:00 71 /min [facility] Body temperature 2018-12-10 15:42:00 37.06 Radha [facility] Respiratory rate 2018-12-10 15:42:00 16 /min [facility] Body height 2018-12-10 15:42:00 165.1 cm [facility] Body weight 2018-12-10 15:42:00 109.77 kg [facility] BMI 2018-12-10 15:42:00 40.27 kg/m2 [facility] Systolic blood 2018-12-10 15:42:00 98 mm[Hg] [facility] Diastolic blood 2018-12-10 15:42:00 66 mm[Hg] [facility] Heart rate 2018-12-10 15:42:00 71 /min [facility] Body temperature 2018-12-10 15:42:00 37.06 Radha [facility] Respiratory rate 2018-12-10 15:42:00 16 /min [facility] Body height 2018-12-10 15:42:00 165.1 cm [facility] Body weight 2018-12-10 15:42:00 109.77 kg [facility] BMI 2018-12-10 15:42:00 40.27 kg/m2 [facility] Systolic blood 2018-12-06 15:34:00 122 mm[Hg] [facility] Diastolic blood 2018-12-06 15:34:00 64 mm[Hg] [facility] Heart rate 2018-12-06 15:34:00 95 /min [facility] Body temperature 2018-12-06 15:34:00 36.89 Radha [facility] Respiratory rate 2018-12-06 15:34:00 16 /min [facility] Body height 2018-12-06 15:34:00 165.1 cm [facility] Body weight 2018-12-06 15:34:00 111.33 kg [facility] BMI 2018-12-06 15:34:00 40.84 kg/m2 [facility] Systolic blood 2018-12-06 15:34:00 122 mm[Hg] [facility] Diastolic blood 2018-12-06 15:34:00 64 mm[Hg] [facility] Heart rate 2018-12-06 15:34:00 95 /min [facility] Body temperature 2018-12-06 15:34:00 36.89 Radha [facility] Respiratory rate 2018-12-06 15:34:00 16 /min [facility] Body height 2018-12-06 15:34:00 165.1 cm [facility] Body weight 2018-12-06 15:34:00 111.33 kg [facility] BMI 2018-12-06 15:34:00 40.84 kg/m2 [facility] Heart rate 2018-12-03 21:30:00 77 /min [facility] Oxygen saturation in 2018-12-03 21:30:00 99 /min University Arterial blood by [facility] Pulse oximetry Branch Systolic blood 2018-12-03 19:12:00 139 mm[Hg] [facility] Diastolic blood 2018-12-03 19:12:00 74 mm[Hg] [facility] Body temperature 2018-12-03 19:12:00 36.83 Radha [facility] Respiratory rate 2018-12-03 19:12:00 18 /min [facility] Body height 2018-12-03 19:12:00 167.6 cm [facility] Body weight 2018-12-03 19:12:00 111.494 kg [facility] BMI 2018-12-03 19:12:00 39.69 kg/m2 [facility] Heart rate 2018-12-03 21:30:00 77 /min [facility] Oxygen saturation in 2018-12-03 21:30:00 99 /min [facility] Arterial blood by [facility] Pulse oximetry Branch Systolic blood 2018-12-03 19:12:00 139 mm[Hg] [facility] Diastolic blood 2018-12-03 19:12:00 74 mm[Hg] [facility] Body temperature 2018-12-03 19:12:00 36.83 Radha [facility] Respiratory rate 2018-12-03 19:12:00 18 /min [facility] Body height 2018-12-03 19:12:00 167.6 cm [facility] Body weight 2018-12-03 19:12:00 111.494 kg [facility] BMI 2018-12-03 19:12:00 39.69 kg/m2 [facility] Systolic blood 2018-12-03 15:02:00 113 mm[Hg] [facility] Diastolic blood 2018-12-03 15:02:00 60 mm[Hg] [facility] Heart rate 2018-12-03 15:02:00 73 /min [facility] Body temperature 2018-12-03 15:02:00 36.89 Radha [facility] Respiratory rate 2018-12-03 15:02:00 17 /min [facility] Body height 2018-12-03 15:02:00 167.6 cm [facility] Body weight 2018-12-03 15:02:00 111.585 kg [facility] BMI 2018-12-03 15:02:00 39.71 kg/m2 [facility] Systolic blood 2018-12-03 15:02:00 113 mm[Hg] [facility] Diastolic blood 2018-12-03 15:02:00 60 [...] ty [facility] Systolic blood 2018-11-29 17:58:00 136 mm[Hg] [facility] Diastolic blood 2018-11-29 17:58:00 80 mm[Hg] [facility] Heart rate 2018-11-29 17:58:00 76 /min [facility] Body temperature 2018-11-29 17:58:00 37.06 Radha [facility] Respiratory rate 2018-11-29 17:58:00 16 /min [facility] Body height 2018-11-29 17:58:00 167.6 cm [facility] Body weight 2018-11-29 17:58:00 111.273 kg [facility] BMI 2018-11-29 17:58:00 39.59 kg/m2 [facility] Systolic blood 2018-11-29 17:58:00 136 mm[Hg] [facility] Diastolic blood 2018-11-29 17:58:00 80 mm[Hg] [facility] Heart rate 2018-11-29 17:58:00 76 /min [facility] Body temperature 2018-11-29 17:58:00 37.06 Radha [facility] Respiratory rate 2018-11-29 17:58:00 16 /min [facility] Body height 2018-11-29 17:58:00 167.6 cm [facility] Body weight 2018-11-29 17:58:00 111.273 kg [facility] BMI 2018-11-29 17:58:00 39.59 kg/m2 [facility] Systolic blood 2018-11-26 15:17:00 116 mm[Hg] [facility] Diastolic blood 2018-11-26 15:17:00 76 mm[Hg] [facility] Heart rate 2018-11-26 15:17:00 84 /min [facility] Body temperature 2018-11-26 15:17:00 37 Radha [facility] Respiratory rate 2018-11-26 15:17:00 16 /min [facility] Body height 2018-11-26 15:17:00 167.6 cm [facility] Body weight 2018-11-26 15:17:00 109.827 kg [facility] BMI 2018-11-26 15:17:00 39.08 kg/m2 [facility] Systolic blood 2018-11-22 13:11:00 108 mm[Hg] [facility] Diastolic blood 2018-11-22 13:11:00 62 mm[Hg] [facility] Heart rate 2018-11-22 13:11:00 66 /min [facility] Body temperature 2018-11-22 13:11:00 36.72 Radha [facility] Respiratory rate 2018-11-22 13:11:00 16 /min [facility] Body height 2018-11-22 13:11:00 167.6 cm [facility] Body weight 2018-11-22 13:11:00 111.131 kg [facility] BMI 2018-11-22 13:11:00 39.54 kg/m2 [facility] Heart rate 2018-11-19 20:45:00 72 /min [facility] Oxygen saturation in 2018-11-19 20:15:00 100 /min [facility] Arterial blood by [facility] Pulse oximetry Branch Systolic blood 2018-11-19 17:41:00 135 mm[Hg] [facility] Diastolic blood 2018-11-19 17:41:00 65 mm[Hg] [facility] Body temperature 2018-11-19 17:41:00 36.83 Radha [facility] Respiratory rate 2018-11-19 17:41:00 16 /min [facility] Body height 2018-11-19 17:41:00 167.6 cm [facility] Body weight 2018-11-19 17:41:00 109.77 kg [facility] BMI 2018-11-19 17:41:00 39.06 kg/m2 [facility] Systolic blood 2018-11-19 14:28:00 118 mm[Hg] [facility] Diastolic blood 2018-11-19 14:28:00 64 mm[Hg] [facility] Heart rate 2018-11-19 14:28:00 62 /min [facility] Body temperature 2018-11-19 14:28:00 36.89 Radha [facility] Respiratory rate 2018-11-19 14:28:00 16 /min [facility] Body height 2018-11-19 14:28:00 167.6 cm [facility] Body weight 2018-11-19 14:28:00 109.941 kg [facility] BMI 2018-11-19 14:28:00 39.12 kg/m2 [facility] Systolic blood 2018-11-15 19:28:00 123 mm[Hg] [facility] Diastolic blood 2018-11-15 19:28:00 68 mm[Hg] [facility] Heart rate 2018-11-15 19:28:00 73 /min [facility] Body temperature 2018-11-15 19:28:00 36.89 Radha [facility] Respiratory rate 2018-11-15 19:28:00 16 /min [facility] Body height 2018-11-15 19:28:00 167.6 cm [facility] Body weight 2018-11-15 19:28:00 110.309 kg [facility] BMI 2018-11-15 19:28:00 39.25 kg/m2 [facility] Systolic blood 2018-11-12 15:53:00 102 mm[facility]Hg[facility] 2018-11-12 15:53:00 64 mm[facility]Hg] [facility] 2018-11-12 15:53:00 65 /min [facility] Body temperature 2018-11-12 15:53:00 37.39 Radha [facility] Respiratory rate 2018-11-12 15:53:00 16 /min [facility] Body height 2018-11-12 15:53:00 167.6 cm [facility] Body weight 2018-11-12 15:53:00 109.941 kg [facility] BMI 2018-11-12 15:53:00 39.12 kg/m2 [facility] Procedures Procedure Date / Time Performing Clinician Source Performed US LOWER EXTREMITY VEIN 2019-01-01 07:50:21 Kortney [facility] WITH COMPRESSION BILATERAL [facility]ONLY FOR RULE OUT DVT) [facility] URINALYSIS 2019-01-01 04:17:[address] [facility] PROTEIN CREAT RATIO URINE 2019-01-01 04:17:[address] [facility] SGOT (ASPARTATE AMINO 2019-01-01 04:16:00 Alo Moses [facility] TRANSFER) Medical Branch CREATININE 2019-01-01 04:16:00 [facility] 2019-01-01 04:16:00 Josué [facility] TRANSFERASE(SGPT Medical Branch LACTATE DEHYDROGENASE 2019-01-01 04:16:00 Josué [facility] URIC ACID 2019-01-01 04:16:00 [facility] CBC WITH DIFFERENTIAL 2019-01-01 04:16:00 Alo Moses [facility] POCT URINALYSIS 2018-12-31 20:24:00 Max Velarde [facility] URINALYSIS 2018-12-29 01:39:00 Alla Alford [facility] LIPASE 2018-12-29 01:37:00 Alla Alford [facility] MAGNESIUM 2018-12-29 01:37:00 Alla Alford [facility] COMP. METABOLIC PANEL 2018-12-29 01:37:00 Alla Alford [facility] ([id number]) [facility] CBC WITH DIFFERENTIAL 2018-12-29 01:37:00 Alla Alford [facility] PROTHROMBIN TIME / INR 2018-12-29 01:37:00 Alla Alford [facility] N-TERMINAL PRO-BNP 2018-12-29 01:37:00 Alla Alford [facility] NOTICE OF PRIVACY PRACTICES 2018-12-29 00:16:20 Doctor Jessica willis [facility] CONSENT/REFUSAL FOR 2018-12-29 00:16:07 Doctor Dick [facility] 2018-12-28 18:48:00 Max Velarde [facility] CBC WITH DIFFERENTIAL 2018-12-24 09:13:00 Gilson Upton [facility] CBC WITH DIFFERENTIAL 2018-12-22 15:41:00 Bob La [facility] LAB ON A CART 2018-12-21 20:22:00 Elizabeth Mccray [facility] THROMBELASTOGRAPH CITRATED Medic [facility] KAOLIN W/HEPARIN CBC WITH DIFFERENTIAL 2018-12-21 16:10:00 Maicol Ramírez [facility] VENOUS CORD GAS 2018-12-21 16:07:[address] [facility] o f [facility] TRANSFUSE PLATELETS 2018-12-21 15:07:02 Luca Smallwood [facility] TRANSFUSE PLATELETS 2018-12-21 15:04:33 Luca Smallwood [facility] SECTION 2018-12-21 14:43:00 Jesse Woods [facility] PREPARE PLATELETS 2018-12-21 13:34:52 Luca Smallwood [facility] PREPARE PLATELETS 2018-12-21 13:34:51 Luca Smallwood [facility] LAB ON A CART 2018-12-21 13:18:[address] [facility] THROMBELASTOGRAPH CITRATED Medic [facility] KAOLIN CBC WITH DIFFERENTIAL 2018-12-21 03:45:00 Alison Zamorano [facility] TYPE AND SCREEN 2018-12-21 03:24:00 Antonio Sharma [facility] RHO (D) IMMUNE GLOBULIN 2018-12-21 03:24:00 [facility] ANTIGEN 2018-12-21 03:16:00 Alicia Sharma [facility] GALV ONLY - SYPHILIS 2018-12-21 03:16:00 [facility] NON-STRESS TEST 2018-12-20 16:12:39 Mila Ferguson [facility] POCT URINALYSIS 2018-12-20 15:39:00 Max Velarde [facility] NON-STRESS TEST 2018-12-18 19:31:53 Max Velarde [facility] POCT URINALYSIS 2018-12-18 18:02:00 Max Velarde [facility] NON-STRESS TEST 2018-12-13 19:28:18 Michael Leach [facility] NO SHOW OR MISSED 2018-12-13 18:26:00 Doctor Unassigned, [facility] APPOINTMENT POLICY [facility] ACKNOWLEDGEMENT SECOND AND THIRD TRIMESTER 2018-12-13 18:14:[address] [facility] ULTRASOUND [facility] NON-STRESS TEST 2018-12-10 16:53:02 Jesse Woods [facility] POCT URINALYSIS 2018-12-10 15:44:00 Allie Miller [facility] NON-STRESS TEST 2018-12-06 21:10:03 Marycruz Quevedo [facility] CBC WITH DIFFERENTIAL 2018-12-06 16:40:00 Marycruz Quevedo [facility] GROUP B STREPTOCOCCUS BY 2018-12-06 16:40:00 Marycruz Quevedo [facility] POCT URINALYSIS 2018-12-06 15:35:00 Allie Miller [facility] CONSENT/REFUSAL FOR 2018-12-03 18:58:48 Doctor Unassigned, [facility] DIAGNOSIS AND TREATMENT [facility] ASSIGNMENT OF BENEFITS 2018-12-03 18:58:36 Doctor Unassigned, [facility] Name [facility] NON-STRESS TEST 2018-11-29 18:37:28 Mila Ferguson [facility] POCT URINALYSIS 2018-11-29 17:59:00 Allie Miller [facility] NON-STRESS TEST 2018-11-26 17:49:[address] [facility] POCT URINALYSIS 2018-11-26 15:18:00 Allie Miller [facility] SECOND AND THIRD TRIMESTER 2018-11-22 16:13:00 Mila Ferguson [facility] NON-STRESS TEST 2018-11-22 14:36:42 Rimma Duran [facility] POCT URINALYSIS 2018-11-22 13:14:00 Allie Miller [facility] CONSENT/REFUSAL FOR 2018-11-19 17:28:50 Doctor Unassigned, [facility] DIAGNOSIS AND TREATMENT [place] [facility] ASSIGNMENT OF BENEFITS 2018-11-19 17:28:38 Doctor Unassigned, [facility] Name [facility] NON-STRESS TEST 2018-11-19 14:56:33 Alison Reis [facility] POCT URINALYSIS 2018-11-19 14:29:00 Allie Miller [facility] NON-STRESS TEST 2018-11-15 20:16:30 Modesto De La Rosa [facility] POCT URINALYSIS 2018-11-15 19:31:00 Allie Miller [facility] NON-STRESS TEST 2018-11-12 17:13:[address] [facility] POCT URINALYSIS 2018-11-12 15:55:00 Allie Miller [facility] Encounters Start End Encounter Admission Attending Care Care Encounter Source Date/Time Date/Time Type Type Clinicians Facility Department ID 2020-05-03 Inpatient UR Maria G, [facility] INTE [id number] [facility] 03:53:00 Casey [id number] [facility] 2021-03-02 2021-03-02 Emergency X [facility] ERT [id number] Univers 22:11:00 22:41:00 [facility] 2020-08-25 2020-08-26 Outpatient E [facility] [id number] Memoria 02:37:00 18:00:00 DEBRA Oleary [facility] l 2020-07-06 2020-07-06 [facility] 1.2.840.114 [id number] Univers 00:00:00 00:00:00 Outreach Bird WANG 350.1.13.10 [facility] 4.2.7.2.686 Eladiokellie delgado MARQUITA [id number] [address] 2019-07-13 2019-07-13 Nurse JARAD Douglas 1.2.840.114 [id number] 00:00:00 00:00:00 Triage Aracelis ISRAEL 350.1.13.10 [facility] 4.2.7.2.686 [id number] 019 2019-07-13 2019-07-13 JARAD Santamaria 1.2.840.114 [id number] 00:00:00 00:00:00 Triage Melinda Willis [place] 350.1.13.10 [place] [address].2.7.2.686 [id number] 019 2019-07-13 2019-07-13 Nurse JARAD Douglas 1.2.840.114 [id number] Univers 00:00:00 00:00:00 Triage Aracelis CHAUDHARIY 350.1.13.10 it y of [facility] 4.2.7.2.686 Eladio as [id number] [address] 2019-07-13 2019-07-13 Nurse JARAD Baker 1.2.840.114 [id number] Univers 00:00:00 00:00:00 Triage Melinda WOOD 350.1.13.10 i ty [facility] 4.2.7.2.686 Eladio as [phone] [address] 2018-12-31 2019-01-01 [facility] JARAD 1.2.461.959 [id number] 21:55:55 14:19:00 Encounter Jesse Monroe ISRAEL 350.1.13.10 [place] 4.2.7.2.686 [id number] [facility] 2018-12-31 2019-01-01 [facility] 1.2.135.999 [id number] [facility] 21:55:55 14:19:00 Encounter Jesse WOOD 350.1.13.10 ity of [place].2.[place] [id number] [address] 2018-12-31 2018-12-31 Nurse Visit, [facility] 1.2.840.114 [id number] 15:10:27 15:53:28 Visit Jerel [employer] 350.1.13.[address] [facility] 4.2.7.2.686 MATERNAL [id number] & CHILD [address] [place] [address] 2018-12-31 2018-12-31 Nurse Visit, [facility] Nurse [facility] 1.2 .840.114 [id number] [facility] 15:10:27 15:53:28 Visit Allie Miller [employer] 350.1.13. [address] [facility] 4.2.7.2.686 Eladio as MATERNAL [phone] Med ical & CHILD 107 [facility] 2018-12-31 2018-12-31 Telephone AMANDA Duran 1.2.840.114 [id number] 00:00:00 00:00:00 Rimma Guadalupe [employer] 350.1.13.10 REGIONAL 4.2.7.2.686 MATERNAL [id number] & CHILD 107 [facility] 2018-12-31 2018-12-31 Telephone WonJARAD aranda 1.2.840.114 [id number] 00:00:00 00:00:00 Gilson WOOD 350.1.13.10 [facility] 4.2.7.2.686 [id number] 013 2018-12-31 2018-12-31 Telephone Akil [facility] 1.2.840.114 [id number] Univers 00:00:00 00:00:00 Rimma Guadalupe [employer] 350.1.13.[address] [facility] 4.2.7.2.686 Eladio as MATERNAL [id number] Med ical & CHILD [address] [place] [address] 2018-12-31 2018-12-31 Telephone WonJARAD aranda 1.2.840.114 [id number] Univers 00:00:00 00:00:00 Gilson WOOD 350.1.13.10 i ty [facility] 4.2.7.2.686 Eladio as [phone] [facility] [address] 2018-12-28 2018-12-29 Emergency [facility], [facility] 1.2.941.907 [id number] 19:29:15 00:59:00 Alla Lopez 350.1.13.10 [place] 4.2.7.2.686 [place] [id number] [facility] 2018-12-28 2018-12-29 Emergency [facility], [facility] 1.2.037.407 [id number] [facility] 19:29:15 00:59:00 Alla Lopez 350.1.13.10 ity [facility] 4.2.7.2.686 [place] [facility] [id number] [address] 2018-12-28 2018-12-28 Nurse Visit, [facility] 1.2.840.114 [id number] 12:55:55 13:47:08 Visit Jerel [employer] 350.1.13.10 [facility] 4.2.7.2.686 MATERNAL [phone] & CHILD 107 [facility] 2018-12-28 2018-12-28 Nurse Visit, Ang-Rmchp Nurse [facility] 1.2 .840.114 [id number] [facility] 12:55:55 13:47:08 Visit Max Velarde [employer] 350.1.13.10 ity of REGIONAL 4.2.7.2.686 Eladio as MATERNAL [phone] Med ical & CHILD 107 [facility] 2018-12-20 2018-12-24 [facility] JARAD Lizama 1.2.840.114 [id number] 18:42:00 13:40:00 Encounter Ree ISRAEL 350.1.13.10 [place] 4.2.7.2.686 [id number] [facility] 2018-12-20 2018-12-24 [facility] JARAD Lizama 1.2.840.114 [id number] [facility] 18:42:00 13:40:00 Encounter Ree ISRAEL 350.1.13.10 ity of ANN 4.2.7.2.686 Noé s [id number] [address] 2018-12-20 2018-12-20 Center Aisle Cashier Ultrasound, [facility] 1.2.840.114 [id number] 11:12:37 11:42:37 Visit Ang-Mfm [employer] 350.1.13.10 REGIONAL 4.2.7.2.686 MATERNAL [id number] & CHILD 369 [facility] 2018-12-20 2018-12-20 Center Aisle Cashier Ultrasound, Ang-Mfm [facility] 1.2 .840.114 [id number] [facility] 11:12:37 11:42:37 Visit Mila Ferguson [employer] 350.1.13.10 ity of Jesse Woods REGIONAL 4.2.7.2.686 [place] MATERNAL [phone] Med ical & CHILD 369 [facility] 2018-12-20 2018-12-20 Routine Risk, [facility] 1.2.840.114 [id number] 10:20:16 11:05:03 Ang-Rmchp-N [employer] 350.1.13.10 Visit p/High REGIONAL 4.2.7.2.686 MATERNAL [id number] & CHILD 107 [facility] 2018-12-20 2018-12-20 Routine Risk, Onh-Wspvj-Yj/High [facility] 1. 2.840.114 [id number] Univers 10:20:16 11:05:03 Mila Ferguson [employer] 350.1.13.10 ity of Visit REGIONAL 4.2.7.2.686 Eladio as MATERNAL [id number] [facility] ical & CHILD [address] [place] [address] 2018-12-18 2018-12-18 Routine Syd [facility] 1.2.840.114 [id number] Univers 12:50:29 14:00:55 Roshunda R [employer] 350.1.13.10 ity of Visit REGIONAL 4.2.7.2.686 Eladio as MATERNAL [id number] [facility] ical & CHILD [address] [place] [address] 2018-12-18 2018-12-18 Routine Syd [facility] 1.2.840.114 [id number] 12:50:29 14:00:55 Roshunda R [employer] 350.1.13.10 Visit REGIONAL 4.2.7.2.686 MATERNAL [id number] & CHILD [address] [place] [address] 2018-12-13 2018-12-13 Routine Hines, [facility] Resident UNIVERSIT 1.2.8 40.114 [id number] Univers 13:28:19 14:24:11 Inga Moorette Y HEALTH 350.1. 13.10 ity of [facility] 4.2.7.2.686 [place] Chacorta Clark [phone] [address] 2018-12-13 2018-12-13 Routine Hines, [facility] UNIVERSIT 1.2.840.114 [id number] 13:28:19 14:24:11 Resident Y HEALTH 350.1.13.10 Visit CLINICS 4.2.7.2.686 [id number] [facility] 2018-12-13 2018-12-13 Center Aisle Cashier 2, [facility] Room UNIVERSIT 1 .2.840.114 [id number] Univers 12:48:28 13:23:20 Visit Inga Moore Y HEALTH 350.1.1 3.10 [facility] 4.2.7.2.686 [place] [phone] [facility] [address] 2018-12-13 2018-12-13 Center Aisle Cashier 2, [facility] UNIVERSIT 1.2.840.11 [id number] 12:48:28 13:23:20 Visit [facility] 350.1.13.10 CLINICS 4.2.7.2.686 [id number] 2018-12-13 2018-12-13 Orders Doctor JARAD 1.2.840.114 [id number] Univers 00:00:00 00:00:00 Only Unassigned, ISRAEL 350.1.13.10 ity of [place] [facility] 4.2.7.2.686 Eladio as [phone] [facility] [address] 2018-12-13 2018-12-13 Orders Doctor JARAD 1.2.840.114 [id number] 00:00:00 00:00:00 Only Unassigned, ISRAEL 350.1.13.10 [place] [facility] 4.2.7.2.686 [phone] 2018-12-11 2018-12-11 Case Aries JARAD 1.2.840.114 [id number] 00:00:00 00:00:00 Management Ruba ISRAEL 350.1.13.10 HOSPITAL 4.2.7.2.686 [id number] 013 2018-12-11 2018-12-11 Case Aries JARAD 1.2.840.114 [id number] Univers 00:00:00 00:00:00 Management Ruba ISRAEL 350.1.13.10 ity of HOSPITAL 4.2.7.2.686 Eladio as [phone] [facility] [address] 2018-12-10 2018-12-10 Routine Faculty, [facility] 1.2.840.114 [id number] 10:35:35 11:46:44 Ad Samson [employer] 350.1.13.10 Visit [facility] 4.2.7.2.686 MATERNAL [id number] & CHILD [address] [place] [address] 2018-12-10 2018-12-10 Routine Faculty, Ad Samson [facility] 1.2 .840.114 [id number] [facility] 10:35:35 11:46:44 Jesse Woods [employer] 350.1.13.10 ity of Visit REGIONAL 4.2.7.2.686 Eladio as MATERNAL [phone] [facility] ical & CHILD 107 [facility] 2018-12-06 2018-12-06 Center Aisle Cashier Ultrasound, [facility] 1.2.840.114 [id number] 11:40:06 12:10:06 Visit [facility] [employer]IAN 350.1.13.10 REGIONAL 4.2.7.2.686 MATERNAL [phone] & CHILD 369 [facility] 2018-12-06 2018-12-06 Center Aisle Cashier Ultrasound, [facility] 1.2 .840.114 [id number] [facility] 11:40:06 12:10:06 Visit Marycruz Quevedo [employer] 350.1.13.10 ity of REGIONAL 4.2.7.2.686 Eladio as MATERNAL [id number] [facility] & CHILD [address] [place] [address] 2018-12-06 2018-12-06 Routine Risk, [facility] 1.2.840.114 [id number] 10:02:15 11:39:46 Ang-Rmchp-N [employer] 350.1.13.10 Visit p/High REGIONAL 4.2.7.2.686 MATERNAL [phone] & CHILD 107 [facility] 2018-12-06 2018-12-06 Routine Risk, Fiu-Rklaz-Iy/High [facility] 1. 2.840.114 [id number] [facility] 10:02:15 11:39:46 Marycruz Quevedo [employer] 350.1.13.10 ity of Visit REGIONAL 4.2.7.2.686 Eladio as MATERNAL [phone] [facility] ical & CHILD [address] [place] [address] 2018-12-03 2018-12-03 [facility] oLrrie Olmos [facility] 1.2.840.114 [id number] 13:57:00 16:45:[address] [facility] 350.1.13.10 [place] 4.2.7.2.686 [place] [id number] 083 2018-12-03 2018-12-03 [facility] Lorrie Olmos [facility] 1.2.840.114 [id number] [facility] 13:57:00 16:45:00 Encounter Damien [place] 350.1.13.10 ity of [place] 4.2.7.2.686 [place] [facility] [phone] [address] 2018-12-03 2018-12-03 Routine Faculty, [facility] 1.2.840.114 [id number] 09:27:42 10:36:46 Ang Rmchp [employer] 350.1.13.10 Visit [facility] 4.2.7.2.686 MATERNAL [phone] & CHILD [address] [place] [address] 2018-12-03 2018-12-03 Routine Faculty, Ang Rmchp [facility] 1.2 .840.114 [id number] [facility] 09:27:42 10:36:46 Kyle Cordero [employer] 350.1.13. 10 ity of Visit REGIONAL 4.2.7.2.686 Eladio as MATERNAL [phone] [facility] ical & CHILD [address] [place] [address] 2018-11-29 2018-11-29 Routine Risk, [facility] 1.2.840.114 [id number] 12:45:37 13:38:16 Ang-Rmchp-N [employer] 350.1.13.10 Visit p/High REGIONAL 4.2.7.2.686 MATERNAL [id number] & CHILD [address] [place] [address] 2018-11-29 2018-11-29 Routine Risk, Myf-Litsh-Cn/High [facility] 1. 2.840.114 [id number] [facility] 12:45:37 13:38:16 PhyllisMilay [employer]IAN 350.1.13.10 ity of Visit REGIONAL 4.2.7.2.686 Eladoi as MATERNAL [id number] [facility] ical & CHILD [address] [place] [address] 2018-11-29 2018-11-29 Center Aisle Cashier Ultrasound, [facility] 1.2 .840.114 [id number] [facility] 11:09:01 11:48:17 Visit Calvin Patel [employer]IAN 350.1.13.10 ity of REGIONAL 4.2.7.2.686 Eladio as MATERNAL [phone] [facility] ical & CHILD [address] [place] [address] 2018-11-26 2018-11-26 Routine Faculty, Ad Beachjayesh [facility] 1.2 .840.114 [id number] Univers 10:07:03 11:06:11 Inga Moore [employer] 350.1.1 3.10 ity of Visit REGIONAL 4.2.7.2.686 Eladio as MATERNAL [phone] [facility] ical & CHILD [address] [place] [address] 2018-11-22 2018-11-22 Center Aisle Cashier 5, [facility] Us Room UNIVERSIT 1 .2.840.114 [id number] Univers 10:44:00 11:48:35 Visit Inga Moore [facility] 350.1.1 3.10 ity of Alison Reis [facility] 4.2.7.2.686 [place] [phone] [facility] [address] 2018-11-22 2018-11-22 Routine [facility] 1.2.323.999 [id number] Univers 08:04:45 09:05:49 Rimma Guadalupe [employer] 350.1.13.10 i ty of Visit REGIONAL 4.2.7.2.686 Eladio as MATERNAL [id number] [facility] ical & CHILD [address] [place] [address] 2018-11-19 2018-11-19 [facility] Olmos Lorrie [facility] 1.2.840.114 [id number] [facility] 12:24:36 16:05:[address] [facility] 350.1.13.10 ity of [place] 4.2.7.2.686 [facility] [phone] [place] 239983 [place] 2018-11-19 2018-11-19 Routine Faculty, Ad [facility] 1.2 .840.114 [id number] Univers 09:18:45 10:07:14 Alison Reis [employer] 350.1.13.10 ity of Visit REGIONAL 4.2.7.2.686 Eladio as MATERNAL [phone] [facility] ical & CHILD [address] [place] [address] 2018-11-15 2018-11-15 Routine Faculty, Ad [facility] 1.2 .840.114 [id number] Univers 13:56:25 15:11:31 Modesto De La Rosa [employer]IAN 350.1.13.10 ity of Visit REGIONAL 4.2.7.2.686 Eladio as MATERNAL [phone] [facility] ical & CHILD 107 [facility] 2018-11-14 2018-11-14 Center Aisle Cashier Ultrasound, [facility] 1.2 .840.114 [id number] Univers 10:38:34 11:32:09 Visit Alison Reis [employer] 350.1.13.10 ity of REGIONAL 4.2.7.2.686 Eladio as MATERNAL [phone] Med ical & CHILD 369 [facility] 2018-11-12 2018-11-12 Routine Faculty, Ad Beachjayesh [facility] 1.2 .840.114 [id number] Univers 10:38:07 12:09:10 Inga Moore [employer] 350.1.1 3.10 ity of Visit REGIONAL 4.2.7.2.686 Eladio as MATERNAL [phone] [facility] ical & CHILD 107 [facility] 2018-11-01 2018-11-01 Case Jose C, ROSSY 1.2.692.113 [id number] Univers 00:00:00 00:00:00 Management Vidhi CALVILLO 350.1.13.10 ity of CLINICS 4.2.7.2.686 Noé delgado [phone] [address] Results Test Description Test Time Test Comments Results Result [facility] e Comments - DUP VEIN [facility] 2020-05-04 08:04:00 [facility] BRI CAMPBELLPARTH : 1985 Sex: F Patient Name: BRI CAMPBELLWEI Unit No: [id number] EXAMS: CPT CODE: [id number] DUP VEIN SAMANTHA 96171 BILATERAL LOWER EXTREMITY DUPLEX VENOUS DOPPLER ULTRASOUND, [...] [email or web address] Orig Print D/T: S: 05/04/2020 (0807) [facility] NAME: BRI CAMPBELL MICHAELWEI Radiology Department PHYS: Magdalena Borrego MD [address] : 1985 AGE: 34 SEX: F [place] [address] LOC: TANGELA4 A PHONE #: [phone] EXAM DATE: 05/04/2020 STATUS: ADM IN FAX #: [phone] RAD NO: Page 1 Signed Report Patient Name: BRI CAMPBELL Unit No: [id number] EXAMS: CPT CODE: [id number] DUP VEIN SAMANTHA 90864 <Continued> [facility] NAME: BRI CAMPBELL SANTIAGO Radiology Department PHYS: Magdalena Borrego MD [address] : 1985 AGE: 34 SEX: F [place] [address] LOC: TANGELA4 A PHONE #: [phone] EXAM DATE: 05/04/2020 STATUS: ADM IN FAX #: [phone] RAD NO: Page 2 Signed Report CBC [...] TO LOVE.READ JED K & CONFIRMED? Y.BY F.LAB.TM 05/04/20 0456Re sults verified by rep eat analysis IMMATURE PLATELET FRACTION (test 8.4 % 0.0-10.8 N code = IPF) MEAN PLATELET VOLUME (test code = 12.9 fl 9.1-12.7 H MPV) MANUAL DIFF REQUIRED (test code = YES MDIFF) RBC MORPHOLOGY REQUIRED (test NORMAL NORMAL code = RBCM) PLATELET MORPHOLOGY REQUIRED ABNORMAL NORMAL (test code = PLTMR) WBC [id number] 04:57:00 Test Item Value Reference Range Interpretation [...] NORMAL A code = PLTMORPH) CBC W/AUTO [id number] 04:56:00 Test Item Value Reference Range Interpretation [...] PLT) LOVE.READ JED K & CONFIRMED? Y.BY FAdrianLABCHIARA 0456Results verified by rep eat analysis IMMATURE PLATELET 8.4 % 0.0-10.8 N FRACTION (test code = IPF) MEAN PLATELET VOLUME 12.9 fl 9.1-12.7 H (test code = MPV) MANUAL DIFF REQUIRED YES (test code = MDIFF) RBC MORPHOLOGY REQUIRED NORMAL NORMAL (test code = RBCM) PLATELET MORPHOLOGY ABNORMAL NORMAL REQUIRED (test code = PLTMR) WBC [id number] 04:56:00 Test Item Value Reference Range Interpretation Comments SEGMENTED NEUTROPHILS (test code = SEG) % 56.5-79.4 LYMPHOCYTE (test code = LYMPH) % 20-40 CBC W/AUTO [id number] 04:56:00 Test Item Value Reference Range Interpretation [...] PLT) LOVE.READ JED K & CONFIRMED? Y.BY CYNDYTM 0456Results verified by rep eat analysis IMMATURE PLATELET 8.4 % 0.0-10.8 N FRACTION (test code = IPF) MEAN PLATELET VOLUME 12.9 fl 9.1-12.7 H (test code = MPV) MANUAL DIFF REQUIRED YES (test code = MDIFF) RBC MORPHOLOGY REQUIRED NORMAL NORMAL (test code = RBCM) PLATELET MORPHOLOGY ABNORMAL NORMAL REQUIRED (test code = PLTMR) WBC [id number] 04:56:00 Test Item Value Reference Range Interpretation Comments SEGMENTED NEUTROPHILS (test code = SEG) % 56.5-79.4 LYMPHOCYTE (test code = LYMPH) % 20-40 COMPREHENSIVE METABOLIC [id number] 04:39:00 Test Item Value Reference Range Interpretation [...] 46-116 N code = ALKP) CBC W/AUTO [id number] 19:13:00 Test Item Value Reference Range Interpretation Comments WHITE BLOOD CELL 5.9 K/mm3 6.6-12.1 L (test code = WBC) RED BLOOD CELL (test 2.60 M/mm3 3.45-5.01 L code = RBC) HEMOGLOBIN (test 6.9 g/dL 10.7-13.9 L RESULTS FERMIN IFIED BY code = HGB) REPEAT ANALYSIS RESULTS CALLED TO GIANNA VERDUGOREAD BACK & CONFIRME D? Y.BY F.LAB.[facility] 05/03. HEMATOCRIT (test 22.1 % 32.1-42.1 L [...] PLT) SUREKHA.READ BA CK & CONFIRMED? Y.BY F.LAB.[facility] 05/03 IMMATURE PLATELET 6.4 % 0.0-10.8 N [...] REQUIRED (test code PRESENT = PLTMR) LACTIC [id number] 19:05:00 Test Item Value Reference Range Interpretation Comments LACTIC ACID (test 4.5 MMOL/L 0.5-2.2 HH RESULTS CA LLED TO code = LACT) MARIBEL.READ BACK & CONFIRMED? YES. BY GlenAS04 04/17. COMPREHENSIVE METABOLIC [id number] 19:01:00 Test Item Value Reference Range Interpretation [...] 60 units/L 46-116 code = ALKP) PROTHROMBIN [id number] 19:01:00 Test Item Value Reference Range Interpretation Comments PROTHROMBIN TIME PATIENT (test code 13.3 secs 10.4-12.4 H = PTP) THROMBOPLASTIN TIME [id number] 19:01:00 Test Item Value Reference Range Interpretation Comments THROMBOPLASTIN TIME PARTIAL (test 20.6 secs 22-38 L code = PTT) [id number] 19:01:00 Test Item Value Reference Range Interpretation Comments FIBRINOGEN (test code = FIB) 141 mg/dL 309-518 L UA RFLX MICR CULT IF [id number] 12:47:00 Test Item Value Reference Range Interpretation [...] RiskForSepsis-no oth srcSpecimen Description: CLEAN CATCHUR HCG [id number] 12:47:00 Test Item Value Reference Range Interpretation [...] Description: CLEAN CATCHUA RFLX MICR CULT IF [id number] 12:36:00 Test Item Value Reference Range Interpretation [...] RiskForSepsis-no oth srcSpecimen Description: CLEAN CATCHUR HCG [id number] 12:36:00 Test Item Value Reference Range Interpretation [...] culture: RiskForSepsis-no oth srcSpecimen Description: CLEAN CATCHPROTHROMBIN [id number] 10:14:00 Test Item Value Reference Range Interpretation Comments PROTHROMBIN TIME PATIENT (test code 13.3 secs 10.4-12.4 H = PTP) THROMBOPLASTIN TIME [id number] 10:14:00 Test Item Value Reference Range Interpretation Comments THROMBOPLASTIN TIME PARTIAL (test 19.4 secs 22-38 L code = PTT) [id number] 10:14:00 Test Item Value Reference Range Interpretation Comments FIBRINOGEN (test code = FIB) 102 mg/dL 309-518 L COMPREHENSIVE METABOLIC [id number] 09:54:00 Test Item Value Reference Range Interpretation [...] units/L 46-116 N code = ALKP) HGB [id number] 06:49:00 Test Item Value Reference Range Interpretation Comments HEMOGLOBIN (test code = 4.5 g/dL 10.7-13.9 LL RESU LTS CALLED TO HGB) DAY.READ BACK & CONFIRMED? YES. BY F.LAB.IR1 05/03.Results ve rified by repeat mindi sis HEMATOCRIT (test code = 16.2 % 32.1-42.1 LL RESU LTS CALLED TO HCT) DAY.READ BACK & CONFIRMED? YES. BY F.LAB.IR1 05/03.Results ve rified by repeat mindi sis US [...] reviewed this study and agree with the abovereport.[facility] Ratio Urine [id number] 06:35:00 Test Item Value Reference Range Interpretation Comments T. PROT U (test code = 2888-6) 11 mg/dL CREAT U (test code = 9750579744) 153.3 mg/dL Protein/Creatinine Ratio Urine 0.0-2.0 (test code = 8816898558) [facility] [id number] 05:37:00 Test Item Value Reference Range Interpretation Comments URIC ACID (test code = 5313335262) 8.2 mg/dL 2.9-6 H Lab Interpretation (test code = Abnormal 68552-0) [facility]Al[facility] Transferase (SGPT)2019-01-01 05:37:00 Test Item Value Reference Range Interpretation Comments ALT(SGPT) (test code = 6688912375) 21 U/L 9-51 Lab Interpretation (test code = Normal 57382-3) [facility] HospitalLactate [id number] 05:37:00 Test Item Value Reference Range Interpretation Comments LDH (test code = 5042853248) 781 U/L 300-600 H Lab Interpretation (test code = Abnormal 35023-4) [facility] HospitalSerum [id number] 05:25:00 Test Item Value Reference Range Interpretation Comments CREATININE (test code 0.62 mg/dL 0.5-1.04 = 1212876169) eGFR Calculation mL/min/1.73m2 (Non-) (test code = 9243500179) eGFR Calculation mL/min/1.73m2 () (test code = 2249940231) MICKY (test code = MICKY) Association of [...] or urine or abnormalities in imaging tests). [facility]Asparate Amin[facility]2019-01-01 05:25:00 Test Item Value Reference Range Interpretation Comments AST(SGOT) (test code = 0715281253) 30 U/L 13-40 Lab Interpretation (test code = Normal 03745-5) [facility] 04:46:00 Test Item Value Reference Range Interpretation Comments APPEARANCE (test code = Clear Clear 0384651727) COLOR (test code = Yellow Yellow 1317082301) PH (test code = 4.8-8.0 2724723340) SP GRAVITY (test code = 1.003-1.030 2597019841) GLU U QUAL (test code = Normal Normal 7926082452) BLOOD (test code = Negative Negative 6722296379) KETONES (test code = Negative Negative 6511815451) PROTEIN (test code = Negative Negative 2887-8) UROBILIN (test code = Normal Normal 0269680821) BILIRUBIN (test code = Negative Negative 0069143267) NITRITE (test code = Negative Negative 6798505523) LEUK MISBAH (test code = Negative Negative 1897288365) RBC/HPF (test code = See_Comment [Autom ated message] 4472498642) The system [employer] generated this result transmitted ref erence range: 0 - 3 HP F. The reference range was not used to int erpret this result as normal/abnormal . WBC/HPF (test code = See_Comment [Autom ated message] 5217767779) The system [employer] generated this result transmitted ref erence range: 0 - 5 HP F. The reference range was not used to int erpret this result as normal/abnormal . BACTERIA (test code = Negative Negative 6088928505) MUCOUS (test code = Slight Negative LPF A 3824873365) SQ EPITH (test code = See_Comment H [Auto mated message] 4671111397) The system [employer] generated this result transmitted ref erence range: <=2 HPF. The reference range was not used to int erpret this result as normal/abnormal . HYAL CAST (test code = See_Comment H [Aut omated message] 7860426497) The system [employer] generated this result transmitted ref erence range: <=2 LPF. The reference range was not used to int erpret this result as normal/abnormal . Lab Interpretation (test Abnormal code = 24571-7) [facility] WITH [id number] 04:31:00 Test Item Value Reference Range Interpretation Comments WBC (test code = See_Comment [Automated 7690-2) message] The sy stem which generated this [...] (test code = 50.6 fL 39-49.9 H 44795-6) RDW-CV (test code = 14.8 % 12-15.5 788-0) PLT (test code = See_Comment [Automated 777-3) message] The sy stem which generated this result transmitted reference range : 166 - 358 10*3/ ?L. The reference r susan was not used to interpret this result as normal/abnormal . MPV (test code = 10.6 fL 9.5-12.9 85402-2) NRBC/100 WBC (test See_Comment [Automat ed code = 4727143279) message] The system which generated this result transmitted reference range : 0.0 - 10.0 /100 WBCs. The refer ence range was not u sed to interpret th is result as normal/abnormal . NRBC x10^3 (test code <0.01 See_Comment [Auto mated = 6082949547) message] The s ystem which generated this result transmitted reference range : 10*3/?L. The reference range was not used to interpret this result as normal/abnormal . GRAN MAT (NEUT) % 60.1 % (test code = 770-8) IMM GRAN % (test code 0.70 % = 6538758299) LYMPH % (test code = 18.1 % 736-9) MONO % (test code = 6.1 % 5905-5) EOS % (test code = 14.3 % 713-8) BASO % (test code = 0.7 % 706-2) GRAN MAT x10^3(ANC) 5.24 10*3/uL 1.88-7.09 (test code = 4467652134) IMM GRAN x10^3 (test 0.06 10*3/uL 0-0.06 code = 9296740827) LYMPH x10^3 (test code 1.58 10*3/uL 1.32-3.29 = 731-0) MONO x10^3 (test code 0.53 10*3/uL 0.33-0.92 = 742-7) EOS x10^3 (test code = 1.25 10*3/uL 0.03-0.39 H 711-2) BASO x10^3 (test code 0.06 10*3/uL 0.01-0.07 = 704-7) Lab Interpretation Abnormal (test code = 84897-6) [facility] URINALYSIS W SPECIFIC [id number] 20:25:00 Test Item Value Reference Range Interpretation [...] POCT U APPEAR (test code = 3267) [facility] HospitalN-TERMINAL [id number] 02:52:00 Test Item Value Reference Range Interpretation Comments NT-proBNP (test code 423 pg/mL See_Comment H [Autom ated = 2174764194) message] The system which generated this result transmitted reference range : <=125. The reference range was not used to interpret this result as normal/abnormal . MICKY (test code = MICKY) Biotin has been reported to cause a negative bias, interpret results relative to patient's use of biotin. Lab Interpretation Abnormal (test code = 89530-4) [facility]. METABOLIC PANEL (82649)2018-12-29 02:44:00 Test Item Value Reference Range Interpretation Comments NA (test code = 141 mmol/L 135-145 6721999736) K (test code = 3.8 mmol/L 3.5-5 6114299170) CL (test code = 110 mmol/L 98-108 H 6477230378) CO2 TOTAL (test code = 23 mmol/L 23-31 6477038310) AGAP (test code = 2-16 5783602293) BUN (test code = 12 mg/dL 7-23 1475486211) GLUCOSE (test code = 103 mg/dL 70-110 4706327661) CREATININE (test code = 0.50 mg/dL 0.5-1.04 1252027083) TOTAL BILI (test code = 0.6 mg/dL 0.1-1.7 7788702868) CALCIUM (test code = 8.9 mg/dL 8.6-10.6 0945389904) T PROTEIN (test code = 6.8 g/dL 6.3-8.2 1947052553) ALBUMIN (test code = 3.5 g/dL 3.5-5 7989179398) ALK PHOS (test code = 86 U/L 34-122 8334267974) ALT(SGPT) (test code = 19 U/L 9-51 1654999518) AST(SGOT) (test code = 29 U/L 13-40 0986654066) eGFR Calculation mL/min/1.73m2 (Non-) (test code = 5752997339) eGFR Calculation mL/min/1.73m2 () (test code = 8746699565) MICKY (test code = MICKY) Association of [...] tests). Lab Interpretation Abnormal (test code = 01750-1) [facility]IP[facility]2019-[facility] 02:44:00 Test Item Value Reference Range Interpretation Comments LIPASE (test code = 1310162108) 89 U/L 0-220 Lab Interpretation (test code = Normal 37006-7) [facility] HospitalMAGNESIUM2019-09-14 02:44:00 Test Item Value Reference Range Interpretation Comments MAGNESIUM (test code = 4620237589) 1.5 mg/dL 1.7-2.4 L Lab Interpretation (test code = Abnormal 65527-0) [facility] HospitalPROTHROMBIN TIME / [id number] 02:40:00 Test Item Value Reference Range Interpretation Comments PROTIME PATIENT (test See_Comment [Auto mated message] code = 5964-2) The system [employer] generated this result transmitted ref erence range: 12.0 - 1 4.7 Seconds. The re ference range was not u sed to interpret this result as normal/abnor mal. INR (test code = 6301-6) Nor mal INR <1.1; Warfarin Therap eutic range 2.0 to 3. 0 or 2.5 to 3.5, dep ending upon the indica tions. Lab Interpretation (test Normal code = 24232-9) [facility]2019-[facility]-14 02:37:00 Test Item Value Reference Range Interpretation Comments APPEARANCE (test code = Cloudy Clear A 0793227553) COLOR (test code = Laura Yellow A 3064944552) PH (test code = 4.8-8.0 0232014986) SP GRAVITY (test code = 1.003-1.030 2849963798) GLU U QUAL (test code = Normal Normal 5739132400) BLOOD (test code = 3+ Negative A 7420330842) KETONES (test code = Negative Negative 5604386636) PROTEIN (test code = 100 mg/dL Negative A 2887-8) UROBILIN (test code = 4.0 mg/dL Normal A 0956977854) BILIRUBIN (test code = Negative Negative 1902218827) NITRITE (test code = Negative Negative 9143150894) LEUK MISBAH (test code = 75/uL Negative A 8970151860) RBC/HPF (test code = See_Comment H [Autom ated message] 1693095785) The system [employer] generated this result transmit ramana reference range : 0 - 3 HPF. The refe rence range was not u sed to interpret th is result as normal/abnormal . WBC/HPF (test code = See_Comment H [Autom ated message] 5984442324) The system [employer] generated this result transmit ramana reference range : 0 - 5 HPF. The refe rence range was not u sed to interpret th is result as normal/abnormal . BACTERIA (test code = Moderate Negative A 0579658543) MUCOUS (test code = Marked Negative LPF A 0779141769) SQ EPITH (test code = HPF 5803623415) YEAST BUD (test code = See_Comment H [Aut omated message] 3387425663) The system [employer] generated this result transmit ramana reference range : <=1 HPF. The refere nce range was not u sed to interpret th is result as normal/abnormal . ROSSI EPITH (test code = See_Comment [Aut omated message] 1281944748) The system [employer] generated this result transmit ramana reference range : <=1 HPF. The refere nce range was not u sed to interpret th is result as normal/abnormal . Lab Interpretation (test Abnormal code = 17917-3) [facility] WITH [id number] 02:09:00 Test Item Value Reference Range Interpretation [...] (test code = 52.4 fL 39-49.9 H 45395-2) RDW-CV (test code = 15.3 % 12-15.5 788-0) PLT (test code = See_Comment L [Automated 777-3) message] The sy stem which generated this result transmitted reference range : 166 - 358 10*3/ ?L. The reference r susan was not used to interpret this result as normal/abnormal . MPV (test code = 11.3 fL 9.5-12.9 58147-1) NRBC/100 WBC (test See_Comment [Automat ed code = 7621602345) message] The system which generated this result transmitted reference range : 0.0 - 10.0 /100 WBCs. The refer ence range was not u sed to interpret th is result as normal/abnormal . NRBC x10^3 (test code See_Comment [Auto mated = 9597057552) message] The s ystem which generated this result transmitted reference range : 10*3/?L. The reference range was not used to interpret this result as normal/abnormal . GRAN MAT (NEUT) % 70.5 % (test code = 770-8) IMM GRAN % (test code 0.80 % = 2349323958) LYMPH % (test code = 16.6 % 736-9) MONO % (test code = 6.0 % 5905-5) EOS % (test code = 5.8 % 713-8) BASO % (test code = 0.3 % 706-2) GRAN MAT x10^3(ANC) 5.46 10*3/uL 1.88-7.09 (test code = 0708987639) IMM GRAN x10^3 (test 0.06 10*3/uL 0-0.06 code = 6646902048) LYMPH x10^3 (test code 1.28 10*3/uL 1.32-3.29 L = 731-0) MONO x10^3 (test code 0.46 10*3/uL 0.33-0.92 = 742-7) EOS x10^3 (test code = 0.45 10*3/uL 0.03-0.39 H 711-2) BASO x10^3 (test code <0.03 0.01-0.07 = 704-7) Lab Interpretation Abnormal (test code = 19849-2) [facility] SPECIFIC [id number] 18:54:00 Test Item Value Reference Range Interpretation [...] U APPEAR (test code = 3267) * [facility] HospitalRHO (D) IMMUNE [id number] 12:40:02 Test Item Value Reference Range Interpretation Comments RHIG CANDIDATE? No- see comment Patient i s not a (test code = candidate for R [facility]- 5055) Patient is Rh Positive.Perfor med at [facility] Laboratory Services - [facility] Blood [address] [place] [address]Dwcc Free: [phone] A No. [id number] [facility] HospitalCB WITH [id number] 09:27:00 Test Item Value Reference Range Interpretation [...] (test code = 52.0 fL 39-49.9 H 94424-0) RDW-CV (test code = 15.2 % 12-15.5 788-0) PLT (test code = See_Comment L [Automated 777-3) message] The sy stem which generated this result transmitted reference range : 166 - 358 10*3/ ?L. The reference r susan was not used to interpret this result as normal/abnormal . MPV (test code = 10.8 fL 9.5-12.9 62572-3) NRBC/100 WBC (test See_Comment [Automat ed code = 6559266059) message] The system which generated this result transmitted reference range : 0.0 - 10.0 /100 WBCs. The refer ence range was not u sed to interpret th is result as normal/abnormal . NRBC x10^3 (test code <0.01 See_Comment [Auto mated = 5325282660) message] The s ystem which generated this result transmitted reference range : 10*3/?L. The reference range was not used to interpret this result as normal/abnormal . GRAN MAT (NEUT) % 73.9 % (test code = 770-8) IMM GRAN % (test code 0.50 % = 3653685921) LYMPH % (test code = 15.2 % 736-9) MONO % (test code = 7.2 % 5905-5) EOS % (test code = 3.1 % 713-8) BASO % (test code = 0.1 % 706-2) GRAN MAT x10^3(ANC) 5.65 10*3/uL 1.88-7.09 (test code = 9528490523) IMM GRAN x10^3 (test 0.04 10*3/uL 0-0.06 code = 0172726821) LYMPH x10^3 (test code 1.16 10*3/uL 1.32-3.29 L = 731-0) MONO x10^3 (test code 0.55 10*3/uL 0.33-0.92 = 742-7) EOS x10^3 (test code = 0.24 10*3/uL 0.03-0.39 711-2) BASO x10^3 (test code <0.03 0.01-0.07 = 704-7) Lab Interpretation Abnormal (test code = 73560-2) [facility] WITH [id number] 16:03:00 Test Item Value Reference Range Interpretation [...] RDW-SD (test code = 49.8 fL 39-49.9 86736-8) RDW-CV (test code = 15.0 % 12-15.5 788-0) PLT (test code = See_Comment L [Automated 777-3) message] The sy stem which generated this result transmitted reference range : 166 - 358 10*3/ ?L. The reference r susan was not used to interpret this result as normal/abnormal . MPV (test code = 11.2 fL 9.5-12.9 70204-6) NRBC/100 WBC (test See_Comment [Automat ed code = 1807814044) message] The system which generated this result transmitted reference range : 0.0 - 10.0 /100 WBCs. The refer ence range was not u sed to interpret th is result as normal/abnormal . NRBC x10^3 (test code <0.01 See_Comment [Auto mated = 2194977886) message] The s ystem which generated this result transmitted reference range : 10*3/?L. The reference range was not used to interpret this result as normal/abnormal . GRAN MAT (NEUT) % 85.8 % (test code = 770-8) IMM GRAN % (test code 1.10 % = 7409089081) LYMPH % (test code = 6.5 % 736-9) MONO % (test code = 5.1 % 5905-5) EOS % (test code = 1.3 % 713-8) BASO % (test code = 0.2 % 706-2) GRAN MAT x10^3(ANC) 9.20 10*3/uL 1.88-7.09 H (test code = 2071811840) IMM GRAN x10^3 (test 0.12 10*3/uL 0-0.06 H code = 2183329723) LYMPH x10^3 (test code 0.70 10*3/uL 1.32-3.29 L = 731-0) MONO x10^3 (test code 0.55 10*3/uL 0.33-0.92 = 742-7) EOS x10^3 (test code = 0.14 10*3/uL 0.03-0.39 711-2) BASO x10^3 (test code <0.03 0.01-0.07 = 704-7) Lab Interpretation Abnormal (test code = 15236-3) [facility] ON A CART THROMBELASTOGRAPH CITRATED KAOLIN W/[id number] 21:35:00 Test Item Value Reference Range Interpretation Comments R (test code = 6187940124) 6.8 min 5-10 TEG K (test code = 4766375387) 5.2 min 1-3 H Angle (test code = 3915896562) 39.4 deg 53-72 L MA (test code = 7292358781) 35.7 min 50-70 L Lab Interpretation (test code = Abnormal 69128-6) [facility] ON A CART THROMBELASTOGRAPH CITRATED [id number] 16:23:00 Test Item Value Reference Range Interpretation Comments R (test code = 5761295674) 5.9 min 5-10 TEG K (test code = 3792025860) 4.9 min 1-3 H Angle (test code = 9452231575) 44.5 deg 53-72 L MA (test code = 7382853629) 38.7 min 50-70 L Lab Interpretation (test code = Abnormal 31275-5) [facility] [id number] 16:16:00 Test Item Value Reference Range Interpretation Comments WBC (test code = See_Comment [Automated 8490-2) message] The sy stem which generated this result transmitted reference range : 4.30 - 11.10 10*3/?L. The reference range was not used to interpret this result as normal/abnormal . RBC (test code = See_Comment L [Automated 459-8) message] The sy stem which generated this [...] (test code = 50.5 fL 39-49.9 H 29480-4) RDW-CV (test code = 15.1 % 12-15.5 788-0) PLT (test code = See_Comment L [Automated 777-3) message] The sy stem which generated this result transmitted reference range : 166 - 358 10*3/ ?L. The reference r susan was not used to interpret this result as normal/abnormal . MPV (test code = 10.5 fL 9.5-12.9 62086-4) NRBC/100 WBC (test See_Comment [Automat ed code = 4313174218) message] The system which generated this result transmitted reference range : 0.0 - 10.0 /100 WBCs. The refer ence range was not u sed to interpret th is result as normal/abnormal . NRBC x10^3 (test code <0.01 See_Comment [Auto mated = 4306601902) message] The s ystem which generated this result transmitted reference range : 10*3/?L. The reference range was not used to interpret this result as normal/abnormal . GRAN MAT (NEUT) % 73.2 % (test code = 770-8) IMM GRAN % (test code 0.80 % = 9690020865) LYMPH % (test code = 20.1 % 736-9) MONO % (test code = 4.9 % 5905-5) EOS % (test code = 0.9 % 713-8) BASO % (test code = 0.1 % 706-2) GRAN MAT x10^3(ANC) 7.42 10*3/uL 1.88-7.09 H (test code = 8250164387) IMM GRAN x10^3 (test 0.08 10*3/uL 0-0.06 H code = 1590535902) LYMPH x10^3 (test code 2.04 10*3/uL 1.32-3.29 = 731-0) MONO x10^3 (test code 0.50 10*3/uL 0.33-0.92 = 742-7) EOS x10^3 (test code = 0.09 10*3/uL 0.03-0.39 711-2) BASO x10^3 (test code <0.03 0.01-0.07 = 704-7) Lab Interpretation Abnormal (test code = 17886-4) [facility] [id number] 16:09:00 Test Item Value Reference Range Interpretation Comments BASE EXCESS, CORD mEq/L (test code = 2688896736) AC PH, CORD (BEAKER) 7.18-7.38 (test code = 2497965602) PC02, CORD (test code See_Comment [Auto mated message] The = 5266346667) system which g enerated this result transmit ramana reference range : 32 - 66 mmHg. The refer ence range was not used to interpret this result as normal/abnormal . PO2, CORD (test code See_Comment [Autom ated message] The = 6227358201) system which g enerated this result transmit ramana reference range : 10 - 30 mmHg. The refer ence range was not used to interpret this result as normal/abnormal . BICARBONATE, CORD See_Comment [Automate d message] The (test code = system which ge nerated this 4017593116) result transmit ramana reference range : 17 - 27 mEq/L. The refe rence range was not used to interpret this result as normal/abnormal . [facility] CORD [id number] 16:07:00 Test Item Value Reference Range Interpretation Comments VENOUS BASE EXCESS, CORD mEq/L (test code = 2895799946) VENOUS PH, CORD (test 7.25-7.45 code = 7796618940) VENOUS PC02, CORD (test See_Comment [Au tomated message] code = 6627561465) The syste m which generated this result transmitted ref erence range: 27 - 49 mmHg. The reference r susan was not used to interpret this result as normal/abnor mal. VENOUS PO2, CORD (test See_Comment H [Aut omated message] code = 2089908010) The syste m which generated this result transmitted ref erence range: 17 - 41 mmHg. The reference r susan was not used to interpret this result as normal/abnor mal. VENOUS BICARBONATE, CORD See_Comment [A utomated message] (test code = 3013770683) The system which generated this result transmitted ref erence range: 12 - 29 mEq/L. The reference r susan was not used to interpret this result as normal/abnor mal. Lab Interpretation (test Abnormal code = 70914-4) [facility] ONLY - SYPHILIS IGG/[id number] 14:12:00 Test Item Value Reference Range Interpretation Comments Syphilis IgG/IgM (test Non-reactive Non-reactive code = 79653-4) MICKY (test code = MICKY) Non-reactive - No serologic evidence of T. pallidum infection. Cannot exclude incubating or early syphilis. Submit a second specimen in 2-4 weeks if syphilis is clinically suspected.Equivocal - Further testing to follow.Reactive - Further testing to follow. Lab Interpretation (test Normal code = 42362-9) [facility] Platelets (in units): 1 Units~Indication: 4) Evidence of platelet dysfunction and no response to DDAVP or cryoprecipitate with active hemorrhage or at risk for gnpxuplp9384-76-29 13:34:52 Test Item Value Reference Range Interpretation Comments Unit Blood Type (test O Pos code = 4410) ISBT Blood Type Code (test code = 971069) Unit Number (test code [id number] = 4411) Blood Expiration Date & Time (test code = 319898) Status Information Issued (test code = 4412) Product Identification Platelets (test code = 4413) Product Code (test [id number] Performed at [facility] code = 4414) Laboratory Services [address] [address]Yttp Free: [phone] A No. [id number] [facility] Platelets (in units): 1 Units~Indication: 1) Platelets < 10,000 for bleeding okwpzputico9900-40-38 13:34:51 Test Item Value Reference Range Interpretation Comments Unit Blood Type (test O Pos code = 4410) ISBT Blood Type Code (test code = 823350) Unit Number (test code [id number] = 4411) Blood Expiration Date & Time (test code = 276301) Status Information Issued (test code = 4412) Product Identification Platelets (test code = 4413) Product Code (test [id number] Performed at [facility] code = 4414) Laboratory Services - [facility] Blood Aoej531 [facility] s [address]Ifch Free: [phone] A No. [id number] [facility] HospitalHepatitis B Surface Pzcamgb0357-83-99 05:55:00 Test Item Value Reference Range Interpretation Comments HBsAg Semi-Quantitative (test code = 5195-3) [facility] HospitalType and Screen - ONCE Rwwajsn1738-03-95 04:09:59 Test Item Value Reference Range Interpretation Comments ABO & RH (test code A POSITIVE Performe d at [facility] = 20) [facility] Blood [facility]3 [address] [facility] s [address]Dgxn Free: [phone] A No. [id number] IAT (test code = Negative Performed a t [facility] 1185) Laboratory [facility] Blood [facility]3 [address] [facility] s [address]Ecuu Free: [phone] A No. [id number] [facility]CBC WITH [id number] 04:09:00 Test Item Value Reference Range Interpretation Comments WBC (test code = See_Comment [Automated 6690-2) message] The sy stem which generated this result transmitted reference range : 4.30 - 11.10 10*3/?L. The reference range was not used to interpret this result as normal/abnormal . RBC (test code = See_Comment L [Automated 179-8) message] The sy stem which generated this [...] (test code = 50.7 fL 39-49.9 H 92026-7) RDW-CV (test code = 14.9 % 12-15.5 788-0) PLT (test code = See_Comment L [Automated 777-3) message] The sy stem which generated this result transmitted reference range : 166 - 358 10*3/ ?L. The reference r susan was not used to interpret this result as normal/abnormal . MPV (test code = 11.0 fL 9.5-12.9 84683-1) NRBC/100 WBC (test See_Comment [Automat ed code = 7707841650) message] The system which generated this result transmitted reference range : 0.0 - 10.0 /100 WBCs. The refer ence range was not u sed to interpret th is result as normal/abnormal . NRBC x10^3 (test code <0.01 See_Comment [Auto mated = 8342885087) message] The s ystem which generated this result transmitted reference range : 10*3/?L. The reference range was not used to interpret this result as normal/abnormal . GRAN MAT (NEUT) % 76.1 % (test code = 770-8) IMM GRAN % (test code 0.40 % = 5521357791) LYMPH % (test code = 16.3 % 736-9) MONO % (test code = 6.2 % 5905-5) EOS % (test code = 0.8 % 713-8) BASO % (test code = 0.2 % 706-2) GRAN MAT x10^3(ANC) 7.93 10*3/uL 1.88-7.09 H (test code = 6381028166) IMM GRAN x10^3 (test 0.04 10*3/uL 0-0.06 code = 7137594770) LYMPH x10^3 (test code 1.69 10*3/uL 1.32-3.29 = 731-0) MONO x10^3 (test code 0.64 10*3/uL 0.33-0.92 = 742-7) EOS x10^3 (test code = 0.08 10*3/uL 0.03-0.39 711-2) BASO x10^3 (test code <0.03 0.01-0.07 = 704-7) Lab Interpretation Abnormal (test code = 11434-9) [facility] NON-STRESS [id number] 16:13:01Cat I [facility] URINALYSIS W SPECIFIC [id number] 15:39:00 Test Item Value Reference Range Interpretation [...] POCT U APPEAR (test code = 3267) [facility] NON-STRESS [id number] 19:32:31 [facility] SPECIFIC GRAVITY 2018-12-18 18:02:00 Test [...] POCT U APPEAR (test code = 3267) [facility] NON-STRESS [id number] 19:37:16NST NOTE12/13/2018 2:28 PM GA: 36w4d Baseline: 130sVariability: ModerateAccels: +Decels: NoneToco: Quiescent Assessment: Reactive and reassuringPlan: Repeat as scheduledUnSidney [facility] NON-STRESS [id number] 16:54:14NST reviewed, FHR 140s, moderate variability noted, category I, no contractions.[facility] W SPECIFIC [id number] 15:45:00 Test Item Value Reference Range Interpretation [...] POCT U APPEAR (test code = 3267) [facility] HospitalGROUP B STREPTOCOCCUS BY [id number] 15:17:00 Test Item Value Reference Range Interpretation Comments Group B Streptococcus by PCR (test Negative Negative code = 04086-0) Lab Interpretation (test code = Normal 82966-8) [facility] WITH [id number] 06:28:00 Test Item Value Reference Range Interpretation Comments WBC (test code = See_Comment [Automated 6390-2) message] The sy stem which generated this result transmitted reference range : 4.30 - 11.10 10*3/?L. The reference range was not used to interpret this result as normal/abnormal . RBC (test code = See_Comment L [Automated 609-8) message] The sy stem which generated this [...] (test code = 54.0 fL 39-49.9 H 78531-8) RDW-CV (test code = 15.9 % 12-15.5 H 788-0) PLT (test code = See_Comment L [Automated 777-3) message] The sy stem which generated this result transmitted reference range : 166 - 358 10*3/ ?L. The reference r susan was not used to interpret this result as normal/abnormal . MPV (test code = 11.6 fL 9.5-12.9 26810-3) IPF % (test code = 5.3 % 1.3-7.7 Platelet count [id number]) measured by fluorescence method. NRBC/100 WBC (test See_Comment [Automat ed code = 9196709795) message] The system which generated this result transmitted reference range : 0.0 - 10.0 /100 WBCs. The refer ence range was not u sed to interpret th is result as normal/abnormal . NRBC x10^3 (test code <0.01 See_Comment [Auto mated = [id number]) message] The s ystem which generated this result transmitted reference range : 10*3/?L. The reference range was not used to interpret this result as normal/abnormal . GRAN MAT (NEUT) % 80.4 % (test code = 770-8) IMM GRAN % (test code 0.40 % = 3693113281) LYMPH % (test code = 12.4 % 736-9) MONO % (test code = 5.6 % 5905-5) EOS % (test code = 1.0 % 713-8) BASO % (test code = 0.2 % 706-2) GRAN MAT x10^3(ANC) 6.55 10*3/uL 1.88-7.09 (test code = 9075754149) IMM GRAN x10^3 (test 0.03 10*3/uL 0-0.06 code = 6602969565) LYMPH x10^3 (test code 1.01 10*3/uL 1.32-3.29 L = 731-0) MONO x10^3 (test code 0.46 10*3/uL 0.33-0.92 = 742-7) EOS x10^3 (test code = 0.08 10*3/uL 0.03-0.39 711-2) BASO x10^3 (test code <0.03 0.01-0.07 = 704-7) Lab Interpretation Abnormal (test code = 03031-8) [facility] NON-STRESS [id number] 21:11:11NST reactive and reassuring, 1 ctx notedUnLas [facility] CenterPOKS [facility]INALYSIS W SPECIFIC [id number] 15:35:00 Test Item Value Reference Range Interpretation [...] POCT U APPEAR (test code = 3267) [facility] NON-STRESS [id number] 18:37:51Cat I [facility] NON-STRESS [id number] 18:37:51Cat I [facility] NON-STRESS [id number] 18:37:51Cat I [facility] URINALYSIS W SPECIFIC [id number] 17:59:00 Test Item Value Reference Range Interpretation [...] POCT U APPEAR (test code = 3267) [facility] URINALYSIS W SPECIFIC [id number] 17:59:00 Test Item Value Reference Range Interpretation [...] POCT U APPEAR (test code = 3267) [facility] URINALYSIS W SPECIFIC [id number] 17:59:00 Test Item Value Reference Range Interpretation [...] POCT U APPEAR (test code = 3267) [facility] NON-STRESS [id number] 17:50:16 [facility] and [facility]Un[facility]CIFIC [id number] 15:21:00 Test Item Value Reference Range Interpretation [...] POCT U APPEAR (test code = 3267) [facility] NON-STRESS [id number] 14:37:24Cat 1 NST reactive, [facility] W SPECIFIC [id number] 13:15:00 Test Item Value Reference Range Interpretation [...] POCT U APPEAR (test code = 3267) [facility] NON-STRESS [id number] 14:57:43 nonreactive NST with spontaneous decels to 100s from baseline. Will send to LD for prolonged monitoring.[facility] NON-STRESS TEST 2018-11-19 14:57:43nonreactive NST with spontaneous decels to 100s from baseline. Will send to LD for prolonged monitoring.[facility] NON-STRESS [id number] 14:57:43nonreactive NST with spontaneous decels to 100s from baseline. Will send to LD for prolonged monitoring. [facility] URINALYSIS W SPECIFIC [id number] 14:30:00 Test Item Value Reference Range Interpretation [...] POCT U APPEAR (test code = 3267) [facility] [id number] 14:30:00 Test Item Value Reference Range Interpretation [...] POCT U APPEAR (test code = 3267) [facility] [id number] 14:30:00 Test Item Value Reference Range Interpretation [...] POCT U APPEAR (test code = 3267) [facility] [id number] 20:17:18NON STRESS TEST INTERPRETATIONDate: 11/15/2018 15:16 Bri [...] 2 accelerationsComments: toco quiescedPlan: Continue NST 2x Leroy De La Rosa MD #[id number] 3:16 PM?[facility] [id number] 20:17:18NON STRESS TEST INTERPRETATIONDate: 11/15/2018 15:16 Bri [...] 2 accelerationsComments: toco quiescedPlan: Continue NST 2x Leroy De La Rosa MD #[id number] 3:16 PM?[facility]IFIC [id number] 19:32:00 Test Item Value Reference Range Interpretation [...] POCT U APPEAR (test code = 3267) [facility]IFIC [id number] 19:32:00 Test Item Value Reference Range Interpretation [...] POCT U APPEAR (test code = 3267) [facility] [id number] 17:13:56 Reactive and reassuringUnLas [facility] CenterPOKS URINALYSIS W SPECIFIC [id number] 15:56:00 Test Item Value Reference Range Interpretation [...] POCT U APPEAR (test code = 3267) [facility]"
[2021-05-03 16:44] LABS: Absolute Lymphocytes (CBC) 0.7 K/uL (0.7-4.9); Hematocrit 21.8 % (36.0-45.0); Lymphocytes % 7.7 % (15.3-44.8); MPV 9.3 fL (7.6-11.3); RBC Red Blood Cell Count 2.64 M/uL (3.86-4.86)
[2021-05-03 17:03] LABS: ALT/SGPT 21 U/L (12-78); AST/SGOT 10 U/L (15-37); Albumin 3.4 g/dL (3.4-5.0); Alkaline Phosphatase 62 U/L (45-117); BUN Blood Urea Nitrogen 7 mg/dL (7-18); Bicarbonate 22 mmol/L (21-32); Bilirubin Direct < 0.1 mg/dL (0-0.2); Bilirubin Total 0.4 mg/dL (0.2-1.0); Glucose Level 111 mg/dL (74-106); Lipase 51 U/L (73-393); Potassium 4.2 mmol/L (3.5-5.1); Protein, Total 7.3 g/dL (6.4-8.2); Sodium Level 135 mmol/L (136-145)
[2021-05-03 17:18] LABS: Urine Blood Negative (Negative); Urine Glucose Negative (Negative); Urine Protein 2+ (Negative); Urine Specific Gravity >=1.030 (1.005-1.030); Urine pH 5.5 (5.0-7.0)
[2021-05-03] MEDS ORDERED: ONDANSETRON 4 MG/2 ML VIAL ONE ×2 (17:54→19:54)
[2021-05-03] MEDS ORDERED: MORPHINE 4 MG/ML SYR ONE ×2 (17:54→19:54)
[2021-05-03] MEDS ORDERED: NA CHLORIDE 0.9% 1,000 ML ONE ×2 (17:56→21:56)
--- NOTE | 2021-05-03 18:19 | RAD REPORT ---
EXAM DESCRIPTION: CT - Abdomen Pelvis W Contrast - 05/03/2021 5:58 pm CLINICAL HISTORY: ABD PAIN, history of Glanzmann's thrombathenia COMPARISON: Abdomen Pelvis W Contrast dated 01/09/2016 TECHNIQUE: Biphasic, helical CT imaging of the abdomen and pelvis was performed following 100 ml non -ionic IV contrast. No oral contrast administered. All CT scans are performed using dose optimization technique as appropriate and may include automated exposure control or mA/KV adjustment according to patient size. FINDINGS: No suspicious findings in the lung bases. Liver size is normal. In the lateral inferior right lobe a 2.6 centimeter heterogeneous hypodense mas s is present. There is a peripheral rim enhancement seen. A similar fractionally smaller finding was seen in 2016. Hemangioma is favored and may have grown only slightly over this V and half year interv al. In the medial right lobe adjacent to the IVC there is a 16 millimeter low-density mass that may b e a cyst or possibly another hemangioma. This has fractionally increased from a 13 millimeter size in 2016. No portal vein abnormality. Gallbladder is absent. No biliary tree dilatation. No pancreatic o r peripancreatic abnormality seen. Spleen is normal size. There is a thin wedge-shaped cleft or area of decreased attenuation in the inf erior aspect of the spleen appearing to be present on the prior study. This is more conspicuous due t o fluid component within the cleft. Symmetric renal function is seen with no hydronephrosis or suspicious renal mass. No pyelonephritis o r acute parenchymal process. No bladder abnormalities. No adrenal abnormalities. No uterine abnormali ty seen. No dilated bowel loops or bowel wall thickening. No free air or pneumatosis. No hernia, mass or bulky lymphadenopathy. Free intraperitoneal fluid is present [id number] in quantity. In the mid and upper abdomen the fluid is relatively homogeneous at approximately 20-25 Hounsfield units. In the right adnexae and cul de sac the fluid attenuation is more heterogeneous reaching 52 Hounsfield units in the right adnexa and cul-de-sac. This is typical for hemorrhagic material. Right ovary is not clearly defined. The rig ht adnexal heterogeneous fluid or blood collection is approximately 7 x 5 cm. Cul de sac collection i s approximately 8 x 4 cm. No suspicious bony findings. IMPRESSION: Intraperitoneal hemorrhage is present in the right adnexae and cul de sac with lower att enuation free fluid or low-density hemorrhagicfluid scattered in the peritoneal cavity. Ovaries are not clearly defined. The hemorrhagic material is probably related to a spontaneous hemorr emilio given the patient's history. Intraperitoneal hemorrhage related to an ovarian cyst or mass ruptu re would be possible as well. The thin wedge or cleft in the inferior aspect of the spleen appears to been present on the 2016 stud y but is more conspicuous because of the fluid or hemorrhagic material within the cleft. An acute spl enic process is not suspected. No active extravasation identified.
[2021-05-03 20:34] LABS: Urine Specific Gravity/Preg >1.030 (1.005-1.030)
[2021-05-03 20:56] LABS: Blood Morphology Comment NOT SEEN (NOT SEEN); Platelet Estimate ADEQ
--- NOTE | 2021-05-03 21:09 | ER ---
Nurse's Notes [facility] Name: Bri Boyd Age: 35 yrs Sex: Female : 1985 Arrival Date: 05/03/2021 Time: 15:22 Bed 14 Private MD: Diagnosis: Intraperitoneal hemorrhage;Anemia, unspecified;Glanzmann Thrombasthenia Presentation: 05/03 16:15 Chief complaint: Patient states: Epigastric pain; states ABD 'feels swollen'. x1 day. vg1 N/V, denies diarrhea. Coronavirus screen: Vaccine status: Patient reports being unvaccinated. Client denies travel out of the [place] in the last 14 days. Ebola Screen: Patient negative for fever greater than or equal to 101.5 degrees Fahrenheit, and additional compatible Ebola Virus Disease symptoms. Initial Sepsis Screen: Does the patient meet any 2 criteria? HR > 90 bpm. Does the patient have a suspected source of infection? No. Patient's initial sepsis screen is negative. Risk Assessment: Do you want to hurt yourself or someone else? Patient reports no desire to harm self or others. Onset of symptoms was May 02, 2021. 16:15 Method Of Arrival: Ambulatory vg1 16:15 Acuity: KARIE 3 vg1 Triage Assessment: 16:18 General: Appears in no apparent distress. uncomfortable, Behavior is calm, cooperative. vg1 Pain: Complains of pain in epigastric area Pain currently is 10 out of 10 on a pain scale. GI: Abdomen is round Abdomen is tender to palpation Reports upper abdominal pain, bloating, epigastric pain. 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 - Social history:: Smoking status: Patient denies any tobacco usage or history of. Screenin:42 Abuse screen: Denies threats or abuse. Denies injuries from another. Nutritional ww screening: No deficits noted. Tuberculosis screening: No symptoms or risk factors identified. Fall Risk None identified. Assessment: 18:42 General: Appears uncomfortable, Behavior is calm, cooperative, appropriate for age. ww Pain: Complains of pain in epigastric area, umbilical area, right upper quadrant and left upper quadrant. Neuro: Level of Consciousness is awake, alert, obeys commands, Oriented to person, place, time, situation, Speech is normal. Cardiovascular: Denies chest pain, Capillary refill < 3 seconds Patient's skin is warm and dry. Respiratory: Airway is patent Respiratory effort is even, unlabored, Respiratory pattern is regular, symmetrical. GI: Abdomen is non-distended, Abdomen is tender to palpation in umbilical area, right upper quadrant and left upper quadrant. : No deficits noted. No signs and/or symptoms were reported regarding the genitourinary system. EENT: No deficits noted. No signs and/or symptoms were reported regarding the EENT system. Derm: No deficits noted. No signs and/or symptoms reported regarding the dermatologic system. Skin is intact, is healthy with good turgor, Skin is pink, warm \T\ dry. 19:30 General: Appears uncomfortable, Behavior is calm, cooperative, appropriate for age. vc1 Pain: Complains of pain in left upper quadrant and right upper quadrant and left lower quadrant and right lower quadrant Pain does not radiate. Pain currently is 10 out of 10 on a pain scale. Quality of pain is described as sharp, stabbing. 19:30 Neuro: No deficits noted. GI: Bowel sounds present X 4 quads. Reports lower abdominal vc1 pain, upper abdominal pain, nausea. 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 21:00 Reassessment: Patient and/or family updated on plan of care and expected duration. Pain vc1 level reassessed. Patient is alert, oriented x 3, equal unlabored respirations, skin warm/dry/pink. Patient states symptoms have not improved. 21:48 Reassessment: Called [facility] for Nurse to Nurse report. vc1 22:29 Reassessment: Left with [facility]. vc1 Vital Signs: 16:15 BP 132 / 78; Pulse 120; Resp 18; Temp 98.0; Pulse Ox 100% ; Weight 70.76 kg; Height 5 vg1 ft. 6 in. (167.64 cm); Pain 10/10; 18:41 BP 125 / 69; Pulse 77; Resp 18; Pulse Ox 100% on R/A; ww 16:15 Body Mass Index 25.18 (70.76 kg, 167.64 cm) vg1 ED Course: 15:22 Patient arrived in ED. am2 16:01 [facility]az [facility]C [facility] kb 16:01 Gm Strong MD is Attending Physician. kb 16:18 Triage completed. vg1 16:18 Arm band placed on. vg1 16:27 Initial lab(s) drawn, by ks, sent to lab. Inserted saline lock: 22 gauge in left vg1 antecubital area, using aseptic technique. Blood collected. 17:09 Patient placed in an exam room, on a stretcher. vg1 17:13 Reba Bernal, RN is Primary Nurse. ww 17:59 CT Abd/Pelvis - IV Contrast Only In Process Unspecified. EDMS 18:42 Patient has correct armband on for positive identification. Bed in low position. Call ww light in reach. Side rails up X 1. Pulse ox on. NIBP on. 18:44 initiated transfer to [facility]. bd 18:49 pt denied at [facility] due to no capacity at this time,per Jenn. bd Administered Medications: 18:21 Drug: morphine 4 mg Route: IVP; Site: left forearm; ww 20:57 Follow up: Response: No adverse reaction vc1 18:21 Drug: NS 0.9% 1000 ml Route: IV; Rate: 1000 ml; Site: left forearm; ww 18:22 Drug: Zofran (Ondansetron) 4 mg Route: IVP; Site: left forearm; ww 20:57 Follow up: Response: No adverse reaction vc1 20:10 Drug: morphine 4 mg Route: IVP; Site: left forearm; vc1 20:10 Drug: Zofran (Ondansetron) 4 mg Route: IVP; Site: left forearm; vc1 22:00 Drug: Benadryl (diphenhydrAMINE) 25 mg Route: IVP; Site: left forearm; vc1 Outcome: 21:09 ER care complete, transfer ordered by . kb 22:30 Patient left the ED. vc1 Signatures: Dispatcher [employer] EDMS Paz David FNP-C FNP-Ckb Dirrim, Barbara bd Ballard, Brenda, RN RN bb Toshia Terry Victoria, RN RN vg1 Reba Bernal, RN RN ww Nancy Valero, RN RN vc1
--- NOTE | 2021-05-03 21:09 | EDPHYS ---
Physician Documentation [facility] Name: Bri Boyd Age: 35 yrs Sex: Female : 1985 Arrival Date: 05/03/2021 Time: 15:22 Bed 14 Private MD: TERESA Physician Gm Strong HPI: 05/03 17:10 This 35 yrs old Female presents to ER via Ambulatory with complaints of Abdominal Pain. kb 17:10 The patient presents with abdominal pain in the upper abdomen. Onset: The kb symptoms/episode began/occurred last night. The symptoms do not radiate. Associated signs and symptoms: Pertinent positives: nausea and vomiting, Pertinent negatives: constipation, diarrhea, fever. The symptoms are described as constant. Modifying factors: The symptoms are alleviated by nothing, the symptoms are aggravated by nothing. Severity of pain: At its worst the pain was moderate in the emergency department the pain is unchanged. The patient has not experienced similar symptoms in the past. The patient has not recently seen a physician. Pt reports upper abd pain, nausea and vomiting that started last night. . 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 - Social history:: Smoking status: Patient denies any tobacco usage or history of. ROS: 17:09 Constitutional: Negative for fever, chills, and weight loss. kb 17:09 Abdomen/GI: Positive for abdominal pain, nausea and vomiting, Negative for diarrhea, constipation. 17:09 All other systems are negative. Exam: 17:09 Constitutional: This is a well developed, well nourished patient who is awake, alert, kb and in no acute distress. Head/Face: Normocephalic, atraumatic. ENT: Moist Mucous membranes Cardiovascular: Regular rate and rhythm with a normal S1 and S2. No gallops, murmurs, or rubs. No pulse deficits. Respiratory: Respirations even and unlabored. No increased work of breathing. Talking in full sentences Skin: Warm, dry with normal turgor. Normal color. MS/ Extremity: Pulses equal, no cyanosis. Neurovascular intact. Full, normal range of motion. Neuro: Awake and alert, GCS 15, oriented to person, place, time, and situation. Moves all extremities. Normal gait. Psych: Awake, alert, with orientation to person, place and time. Behavior, mood, and affect are within normal limits. 17:09 Abdomen/GI: Inspection: abdomen appears normal, Bowel sounds: normal, in all quadrants, Palpation: soft, in all quadrants, mild abdominal tenderness, in the right lower quadrant and left lower quadrant, moderate abdominal tenderness, in the right upper quadrant and left upper quadrant. Vital Signs: 16:15 BP 132 / 78; Pulse 120; Resp 18; Temp 98.0; Pulse Ox 100% ; Weight 70.76 kg; Height 5 vg1 ft. 6 in. (167.64 cm); Pain 10/10; 18:41 BP 125 / 69; Pulse 77; Resp 18; Pulse Ox 100% on R/A; ww 16:15 Body Mass Index 25.18 (70.76 kg, 167.64 cm) vg1 MDM: 16:21 Patient medically screened. kb 17:09 Data reviewed: vital signs, nurses notes. Data interpreted: Pulse oximetry: on room air kb is 100 %. Interpretation: normal. 18:38 Physician consultation: Chacorta Angela MD was contacted at 18:38, would like kb consultation with CHARTER COACH DRIVER. 18:39 Physician consultation: Gilson Underwood MD was contacted at 18:39, after a discussion of kb the case, a recommendation for transfer for higher level of care is made. 18:54 Physician consultation: Nathalie Lebron MD was called at 18:52, regarding kb consult, patient's condition, voicemail left, awaiting callback. 19:31 Physician consultation: Nathalie Lebron MD was contacted at 19:32, regarding kb consult, patient's condition, Wants 1 unit of platelets and check H\\T\\H Q 6-8 hours. Try to maintain Hemoglobin above 7. 21:05 Counseling: I had a detailed discussion with the patient and/or guardian regarding: the kb historical points, exam findings, and any diagnostic results supporting the discharge/admit diagnosis, lab results, radiology results, the need to transfer to another facility, for higher level of care. ED course: Dr Chappell (CHARTER COACH DRIVER) accepts pt for consult, Dr Ramírez (ED MD) accepts pt for transfer to [facility] . 05/03 16:19 Order name: Basic Metabolic Panel; Complete Time: 17:06 [facility] 05/03 16:19 Order name: CBC with Diff; Complete Time: 21:09 [facility] 05/03 16:19 Order name: Hepatic Function; Complete Time: 17:06 [facility] 05/03 16:19 Order name: Lipase; Complete Time: 17:06 [facility] 05/03 16:47 Order name: Type And Screen kb 05/03 17:18 Order name: Urine Dipstick-Ancillary; Complete Time: 17:21 [facility] 05/03 16:24 Order name: CT Abd/Pelvis - IV Contrast Only; Complete Time: 18:23 kb 05/03 17:23 Order name: Urine --Ancillary (enter results); Complete Time: 20:37 bd 05/03 18:44 Order name: Bb Add On bd 05/03 19:28 Order name: Packed RBCs (Additional Unit) [facility] 05/03 19:43 Order name: COVID-19 SARS RT PCR (Document "Date of Onset" if Symptomatic); Complete kb Time: 20:48 05/03 20:24 Order name: Manual Differential; Complete Time: 21:09 [facility] 05/03 16:19 Order name: IV Saline Lock; Complete Time: 16:27 [facility] 05/03 16:19 Order name: Labs collected and sent; Complete Time: 16:27 [facility] 05/03 16:24 Order name: Urine Dipstick-Ancillary (obtain specimen); Complete Time: 17:37 kb 05/03 16:24 Order name: Urine Test (obtain specimen); Complete Time: 17:37 kb 05/03 18:34 Order name: Vital Signs; Complete Time: 18:41 kb Administered Medications: 18:21 Drug: morphine 4 mg Route: IVP; Site: left forearm; ww 20:57 Follow up: Response: No adverse reaction vc1 18:21 Drug: NS 0.9% 1000 ml Route: IV; Rate: 1000 ml; Site: left forearm; ww 18:22 Drug: Zofran (Ondansetron) 4 mg Route: IVP; Site: left forearm; ww 20:57 Follow up: Response: No adverse reaction vc1 20:10 Drug: morphine 4 mg Route: IVP; Site: left forearm; vc1 20:10 Drug: Zofran (Ondansetron) 4 mg Route: IVP; Site: left forearm; vc1 22:00 Drug: Benadryl (diphenhydrAMINE) 25 mg Route: IVP; Site: left forearm; vc1 Disposition: 05/04 07:52 Co-signature as Attending Physician, Gm Strong MD I agree with the assessment and santana plan of care. Disposition Summary: 05/03/21 21:09 Transfer Ordered Transfer Location: [facility] kb Reason: Higher level of care kb Condition: Stable kb Problem: new kb Symptoms: are unchanged kb Accepting Physician: Darrell(05/03/21 22:30) vc1 Diagnosis - Intraperitoneal hemorrhage kb - Anemia, unspecified kb - Glanzmann Thrombasthenia kb Forms: - Medication Reconciliation Form kb - SBAR form kb Signatures: Dispatcher [employer] EDPaz Goetz, KODI-C TRANSLITERATOR-Gm Goodwin MD MD cha Garcia, Victoria RN RN vg1 Reba Bernal RN RN ww Nancy Valero RN RN vc1 Corrections: (The following items were deleted from the chart) 05/03 22:30 21:09 Darrell dawn vc1
[2021-05-03] MEDS ORDERED: DIPHENHYDRAMINE 50 MG/ML VIAL ONE (21:56)
[2021-05-03 23:31] VITALS: TEMP 98; O2SAT 100
[2021-05-03 23:33] VITALS: BP 125/69
== END 2021-05-03 22:30 ==
LOC: ER 15:20
PROC: 30233N1 Transfusion of Nonautologous Red Blood Cells into Peripheral Vein, Percutaneous Approach (ICD-10-PCS; principal; 2021-05-03)
DX: K66.1 Hemoperitoneum (principal); D64.9 Anemia, unspecified; D69.1 Qualitative platelet defects; Z88.6 Allergy status to analgesic agent; Z88.8 Allergy status to other drugs, medicaments and biological substances; Z20.822 Contact with and (suspected) exposure to COVID-19
CPT/HCPCS: 36415; 74177; 80048; 80076; 81003; 81025; 83690; 85025; 86850; 86900; 86901; 86922; 96374; 96375; 99284; J1200; J2405; J7030; P9016; Q9967; U0003

== ENCOUNTER 2021-07-29 14:26 | Observation (INO) | payer SELFPAY ==
--- OUTSIDE RECORDS SUMMARY | 2021-07-29 14:35 | XMS REPORT | Continuity of Care Document ---
:1985 Author Organization [facility] t Address [address] [place] [address] Care Team Providers Name Role Phone Anayeli BARNARD Primary Care Physician Unavailable Maya Cummins Attending Clinician Unavailable [place] Attending Clinician Unavailable Marlin Ramírez Attending Clinician Unavailable RENE Attending Clinician Unavailable Juan Manuel Reis DO Attending Clinician Misael RINCON Attending Clinician Unavailable Samuel RINCON, Leta Attending Clinician Unavailable Peggy SANDRA, Kings Attending Clinician Visit, Nurse Attending Clinician Unavailable Angela OVALLEP, C Attending Clinician Roger MARIEE, N Attending Clinician Holger Upton MD Attending Clinician Rocío SANDRA S Attending Clinician Syd MARIEE, R Attending Clinician Dl SANDRA Attending Clinician Ultrasound Attending Clinician Unavailable Soraida Ferguson Attending Clinician Risk Attending Clinician Unavailable Resident David Attending Clinician Unavailable Ricarda Moore MD Attending Clinician Eduardo SANDRA, W Attending Clinician 2, Mfm Usg Room Attending Clinician Unavailable Doctor Unassigned, Name Attending Clinician Unavailable Aries SANDRA Attending Clinician Faculty, [facility] Attending Clinician Unavailable Quevedo WHCNP, L Attending Clinician Damien Olmos MD Attending Clinician Luigi Cordero Attending Clinician Chaparro Patel Attending Clinician 5, Mf Usg Room Attending Clinician Unavailable Chato SANDRA, M Attending Clinician Rj SANDRA, F Attending Clinician Jose C SANDRA Attending Clinician Maya Cummins Admitting Clinician Unavailable [place] Admitting Clinician Unavailable Physician, Primary or Family Admitting Clinician Unavailmojgan Woods MD, M Admitting Clinician Dl SANDRA Admitting Clinician Damien Olmos MD Admitting Clinician Payers Payer Name Policy Type Policy Number Effective Date Expiration Date S [facility] MEDICAID PENDING PENDING 2021 00:00:00 Advance Directives Directive Decision Effective Termination Comments Source Date Date Healthcare Agents on N/A [facility] FileNameRelationshipHealthM[facility] Agent Medical RelationshipCommunicationMemorial Regional Hospital S [facility]onaMotherHealth Care [phone] (Mobile) [email or web address]) Problems Condition Condition Condition Status Onset Resolution Last Treating Co mments Source Name Details Category Date Date Treatment Clinician Date Abnormal Abnormal Disease Active 2018-04 Unive rs TSH TSH 0-18 ity of 00:00: [address] Fatty Fatty Disease Active 2018-04 Univers liver liver 0-18 ity of 00:00: [address] Other Other Disease Active 2018-04 Univers fatigue fatigue 0-18 ity of 00:00: [address] Severe Severe Disease Active Univers pre-eclamp pre-eclamp 9-17 it y of richard, richard, 00:00: [place] 00 Me dical condition condition Bran ch or or complicati complicati on on 37 weeks 37 weeks Disease Active Unive rs gestation gestation 9-05 ity of of of 00:00: [place] 00 [facility] Research Research Disease Active Overview: Un brayden study study 12-13 Notice of ity of patient: patient: 00:00: [place] ECCCO: ECCCO: 00 [facility] [...] concerns, you may page the PRD at [phone]. Disease Active U nivers anemia anemia 8-05 ity of 00:00: [address] Anemia of Anemia of Disease Active Uni vers mother in mother in 8-05 [place] , , [place] ante[place] antepartum 00 [facility] [place] [facility] Obesity Obesity Disease Active Univers (BMI (BMI 7-08 ity of 30-39.9) 30-39.9) 00:00: [place] 00 [facility] Rubella Rubella Disease Active Univers non-immune non-immune 6-25 it y of status, status, 00:00: [place] antepartum antepartum 00 [facility] [place] [facility] Need for Need for Disease Active Unive rs immunizati immunizati 6-25 it y of on against on against [place] rubella rubella [address] [place] [address] Placental Placental Disease Active Uni vers abnormalit abnormalit 6-25 it y of y y 00:00: [place] 00 Medical Branch ASCUS with ASCUS with Disease Active Overview [...] 2-12 X2 ity of section section 00:00: [place] 00 Medical Branch High risk High risk Disease Active Uni vers , , 2-12 it y of ante[place] antepartum [place] Obesity in Obesity in Disease Active U nivers 5-25 ity of 00:00: [place] 00 Medical Branch Glanzmann' Glanzmann' Disease Active U [...] ents Source Name Type Date Date Clinician NSAIDS DA Active SV BLOOD [facility] (Non-[facility] CLOTTING 1-18 [facility] DISORDER 00:00: [facility] Anti-Inf 00 l of lamma [place] iron DA Active U UNKNOWN [facility] 1-18 Woman's 00:00: [facility] 00 l of [place] NSAIDS DA Active SV BLOOD [facility] (Non-[place] CLOTTING 1-17 Woman' s roidal DISORDER 00:00: [facility] Anti-Inf 00 l of lamma [place] iron DA Active U 2020- [facility] 1-17 Woman's 00:00: [facility] 00 l of [place] asprin DA Active SV itching, [facility] hives 1-17 Woman's 00:00: [facility] 00 l of [place] iron DA Active U UNKNOWN [facility] 1-17 Woman's 00:00: [facility] 00 l of [place] Penicill Propensi Active Unknown - 2017-0 Uni vers in ty to See comments 2-19 ity of adverse 00:00: [place] reaction 00 Medical s Branch Penicill Propensi Active Unknown - Uni vers in ty to See comments 2- ity of adverse 00:00: [place] reaction 00 Medical s Branch PENICILL DRUG Active Unknown-Cmnt Un brayden IN INGREDI 06-05 ity of 00:00: [place] 00 Medical Branch Aspirin Propensi Active Unknown - Unable to U nivers ty to See comments 12-24 take d/t it y of adverse 00:00: clotting [place] reaction 00 disorder. Medic al s Branch ASPIRIN DRUG Active Unknown-Cmnt Uni vers INGREDI 12-24 ity of 00:00: [place] 00 Medical [place] Social History Social Habit Start Date Stop Date Quantity Comments Source ASSERTION 2018-04-15 University of 00:00:00 [facility] Alcohol Comment occasionally Univers ity of [facility] Alcohol intake 2019-02-01 2019-02-01 Current non-drinker U niversity of 00:00:00 00:00:00 of alcohol [facility] (finding) [place] Tobacco use and 2019-02-01 2019-02-01 Never used Universit y of exposure 00:00:00 00:00:00 [facility] Cigarettes smoked 2019-02-01 2019-02-01 Univers ity of current (pack per 00:00:00 00:00:00 [facility] ) - Reported Branch Cigarette 2019-02-01 2019-02-01 University of pack-years 00:00:00 00:00:00 [facility] Tobacco Comment 2018-05-29 2018-05-29 1 pack per week; Uni versity of 00:00:00 00:00:00 quit 2015 [facility] Branch History of 2015-06-21 Cigarette Smoker Universi ty of tobacco use 00:00:00 [facility] Sex Ass[birth year] At [birth year] Universit y of 00:00:00 00:00:00 [facility] Smoking Status Start Date Stop Date Source Former smoker 2019-02-01 00:00:00 2019-02-01 00:00:00 Universi ty of [facility] Medications Ordered Filled Start Stop Current Ordering [...] f (DEPO-PROVE 15:15: lar, [place] RA) 00 [id number], Medical injection First dose Bran ch 150 mg on Mon01/01/19 at 1015, Until Discontinu ed, Routine butalbital- 2018- 2019- No 2{tbl} 2 tablet, Univers acetaminoph 01-01 Oral, ity of en-caff 14:45: 13:52 ONCE, 1 [place] (ESGIC) 00 :00 dose, [facility] 50-325-40 01/01/19 at Bran ch mg tablet 2 0945, tablet Routine HYDROcodone 2018- 2019- No 1{tbl} 1 tablet, Univers -acetaminop 01-01 Oral, ity of hen (NORCO 10:00: 08:55 ONCE, 1 [place] as 5) 5-325 mg 00 :00 dose, Med ical tablet 1 01/01/19 at Branc h tablet 0500, Routine HYDROcodone 2019-0 2019- No 1{tbl} 1 tablet, Univers -acetaminop 01-01 Oral, ity of hen (NORCO 06:45: 05:56 ONCE, 1 [place] as 5) 5-325 mg 00 :00 dose, Tu Med ical tablet 1 01/01/19 at [facility] tablet 0145, Routine D5W 0.45% 2019-0 Yes 1000mL at 100 Univ ers NaCl [...] INSTRUCTIO Bran ch 32 mEq NS, Starting Mon12/31/18 at 2307, Until Discontinu [...] activity (patient already on magnesium sulfate) HYDROcodone 2019- Yes [id number] 1{tbl} Take 1 Univers -acetaminop 9-17 tablet by ity of hen 5-325 00:00: mouth [place] mg tablet 00 every 6 Medical (six) Branch hours as needed for Pain (scale 4-6). hydroCHLORO 2018- Yes [id number] 50mg Take 1 Univers thiazide 50 9-17 tablet by ity of mg tablet 00:00: mouth [place] 00 daily. Medical Branch magnesium 2019- No 4g 32 mEq (4 Un brayden sulfate 4 12-29 g), IV ity of mEq/mL (50 05:15: 04:48 [place], [place] %) 00 :00 ONCE, 1 Medical injection dose, Sat [facility] h 32 mEq 12/29/18 at 0015, STAT furosemide 2019- No 40mg 40 mg, IV U nivers (LASIX) 12-29 Push, ity of injection 04:45: 04:41 ONCE, 1 [place] 40 mg 00 :00 dose, Fri Medical 12/28/18 at Branch 2345, SUSI ondansetron 2019- No 4mg 4 mg, Slow [...] Medical 12/28/18 at Branch 2130, STAT furosemide 2019- Yes [id number] 40mg Take 1 Univers (LASIX) 40 9-14 tablet by ity of mg tablet 00:00: mouth [place] 00 daily. Medical Branch hydrALAZINE 2018- Yes [id number] 10mg Take 1 Univers 10 mg 9-14 tablet by ity of tablet 00:00: mouth [place] 00 every 6 Medical (six) Branch hours. furosemide 2018- Yes [id number] 40mg Take 1 Univers (LASIX) 40 9-14 tablet by ity of mg tablet 00:00: mouth [place] 00 daily. Medical Branch hydrALAZINE 2019- Yes [id number] 10mg Take 1 Univers 10 mg 9-14 tablet by ity of tablet 00:00: mouth [place] 00 every 6 Medical (six) Branch hours. furosemide 2019- Yes [id number] 40mg Take 1 Univers (LASIX) 40 9-14 tablet by ity of mg tablet 00:00: mouth [place] 00 daily. Medical Branch hydrALAZINE 2018- Yes [id number] 10mg Take 1 Univers 10 mg 9-14 tablet by ity of tablet 00:00: mouth [place] 00 every 6 Medical (six) Branch hours. furosemide 2018- Yes [id number] 40mg Take 1 Univers (LASIX) 40 9-14 tablet by ity of mg tablet 00:00: mouth [place] 00 daily. Medical Branch hydrALAZINE Yes [id number] 10mg Take 1 Univers 10 mg 9-14 tablet by ity of tablet 00:00: mouth [place] 00 every 6 Medical (six) Branch hours. furosemide 2019- No [id number] 40mg Take 1 Univers (LASIX) 40 9-14 09-17 tablet by ity of mg tablet 00:00: 00:00 mouth [place] 00 :00 daily. Medical Branch hydrALAZINE 2019- No [id number] 10mg Take 1 Univers 10 mg 9-14 09-17 tablet by ity of tablet 00:00: 00:00 mouth [place] 00 :00 every 6 Medical (six) Branch hours. vitamin 2019- Yes 500ug Take 500 Unive [...] mouth [place] 42 daily. Medical Branch vitamin 2019- Yes 500ug [...] mcg tablet 18:49: mouth [place] 42 daily. [facility] Branch vitamin C Yes 100mg Take 100 Uni vers 100 mg 9-09 mg by ity of tablet 18:49: mouth [place] 42 daily. Medical Branch vitamin 2019- Yes 500ug Take 500 Unive rs B-12 500 9-09 mcg by ity of mcg tablet 18:49: mouth [place] 42 daily. [facility] Branch vitamin C Yes 100mg Take 100 Uni vers 100 mg 9-09 mg by ity of tablet 18:49: mouth [place] 42 daily. [facility] Branch vitamin Yes 500ug Take 500 Unive rs B-12 500 9-09 mcg by ity of mcg tablet 18:49: mouth [place] 42 daily. [facility] Branch vitamin C Yes 100mg [...] Until Discontinu ed, Routine, Sleep, Itching ondansetron Yes 4mg 4 mg, Slow Univers [...] [place] chewable 19 Starting Medical tablet 160 Mon12/24/18 Bra nch mg at 0127, Until Discontinu [...] HYDROcodone Yes 1{tbl} 1 tablet, Univers -acetaminop 12-24 Oral, ity of hen (NORCO) 05:07: Q6HPRN, [place] as 10-325 mg 35 Starting Medica l tablet 1 Mon12/24/18 Branc h tablet at 0007, Until Discontinu ed, Routine, Pain (scale 7-10) docusate Yes [id number] 240mg Take 1 U nivers calcium 240 12-24 capsule by it y of mg capsule 00:00: mouth once [place] 00 daily as Medical needed for Branch Constipati on. HYDROcodone Yes [id number] 1{tbl} Take 1 Univers -acetaminop 12-24 tablet by ity of hen 5-325 00:00: mouth [place] mg tablet 00 every 6 Medical (six) Branch hours as needed for Pain (scale 4-6) (If uncontroll ed by Ibuprofen) . simethicone Yes [id number] 160mg Take 2 Univers 80 mg 9- tablets by ity of chewable 00:00: mouth [place] tablet 00 after Medical meals and Branch at bedtime as needed for Gas. docusate Yes [id number] 240mg Take 1 U nivers calcium 240 9-09 capsule by it y of mg capsule 00:00: mouth once [place] 00 daily as Medical needed for Branch Constipati on. HYDROcodone Yes [id number] 1{tbl} Take 1 Univers -acetaminop 9-09 tablet by ity of hen 5-325 00:00: mouth [place] mg tablet 00 every 6 Medical (six) Branch hours as needed for Pain (scale 4-6) (If uncontroll ed by Ibuprofen) . simethicone Yes [id number] 160mg Take 2 Univers 80 mg 9-09 tablets by ity of chewable 00:00: mouth [place] tablet 00 after Medical meals and Branch at bedtime as needed for Gas. docusate Yes [id number] 240mg Take 1 U nivers calcium 240 9-09 capsule by it y of mg capsule 00:00: mouth once [place] 00 daily as Medical needed for Branch Constipati on. HYDROcodone Yes [id number] 1{tbl} Take 1 Univers -acetaminop 9-09 tablet by ity of hen 5-325 00:00: mouth [place] mg tablet 00 every 6 Medical (six) Branch hours as needed for Pain (scale 4-6) (If uncontroll ed by Ibuprofen) . simethicone Yes [id number] 160mg Take 2 Univers 80 mg 9-09 tablets by ity of chewable 00:00: mouth [place] tablet 00 after Medical meals and Branch at bedtime as needed for Gas. docusate Yes [id number] 240mg Take 1 U nivers calcium 240 9-09 capsule by it y of mg capsule 00:00: mouth once [place] 00 daily as Medical needed for Branch Constipati on. HYDROcodone Yes [id number] 1{tbl} Take 1 Univers -acetaminop 9-09 tablet by ity of hen 5-325 00:00: mouth [place] mg tablet 00 every 6 Medical (six) Branch hours as needed for Pain (scale 4-6) (If uncontroll ed by Ibuprofen) . simethicone Yes [id number] 160mg Take 2 Univers 80 mg 9-09 tablets by ity of chewable 00:00: mouth [place] tablet 00 after Medical meals and Branch at bedtime as needed for Gas. docusate Yes [id number] 240mg Take 1 U nivers calcium 240 9-09 capsule by it y of mg capsule 00:00: mouth once [place] 00 daily as Medical needed for Branch Constipati on. HYDROcodone 2018- Yes [id number] 1{tbl} Take 1 Univers -acetaminop 9-09 tablet by ity of hen 5-325 00:00: mouth [place] mg tablet 00 every 6 Medical (six) Branch hours as needed for Pain (scale 4-6) (If uncontroll ed by Ibuprofen) . simethicone 2018- Yes [id number] 160mg Take 2 Univers 80 mg 9-09 tablets by ity of chewable 00:00: mouth [place] tablet 00 after Medical meals and Branch at bedtime as needed for Gas. docusate Yes [id number] 240mg Take 1 U nivers calcium 240 9-09 capsule by it y of mg capsule 00:00: mouth once [place] 00 daily as Medical needed for Branch Constipati on. HYDROcodone 2018- Yes [id number] 1{tbl} Take 1 Univers -acetaminop 9-09 tablet by ity of hen 5-325 00:00: mouth [place] mg tablet 00 every 6 Medical (six) Branch hours as needed for Pain (scale 4-6) (If uncontroll ed by Ibuprofen) . simethicone Yes [id number] 160mg Take 2 Univers 80 mg 9-09 tablets by ity of chewable 00:00: mouth [place] tablet 00 after Medical meals and Branch at bedtime as needed for Gas. docusate Yes [id number] 240mg Take 1 U nivers calcium 240 9-09 capsule by it y of mg capsule 00:00: mouth once [place] 00 daily as Medical needed for Branch Constipati on. simethicone Yes [id number] 160mg Take 2 Univers 80 mg 9-09 tablets by ity of chewable 00:00: mouth [place] tablet 00 after Medical meals and Branch at bedtime as needed for Gas. HYDROcodone 2019- No [id number] 1{tbl} Take 1 Univers -acetaminop 9-09 09-17 tablet by it y of hen 5-325 [...] 12-22 IV ity of (CYKLOKAPRO 15:17: 23:29 [place], [place] N) 1,000 mg 00 :00 Q8H ABX, 7 Me dical in NaCl doses, Branch 0.9% (NS) First dose [address] [facility] 12/22/18 at 1030, Last dose on Mon12/24/18 at 1030, 250 mL sennosides 2019- No 8.6mg 8.6 mg, Un brayden (SENOKOT) 12-22 Oral, ity of tablet 8.6 14:00: 06:27 DAILY, [place] mg 00 :24 First dose Medical on [facility] 12/22/18 at 0900, Until Discontinu ed, Routine docusate 2019- No 100mg 100 mg, Univ ers (COLACE) 12-22 Oral, ity of capsule 100 14:00: 06:27 DAILY, [place] as mg 00 :24 First dose Medical on [facility] 12/22/18 at 0900, Until Discontinu ed, Routine ondansetron 2018- Yes 4mg 4 mg, Slow Univers (ZOFRAN 12-22 IV Push, ity of (PF)) 13:30: Q6HPRN, [place] injection 4 57 Starting Medi frank mg 12/22/18 Branch at 0830, Until Discontinu ed, Routine, Nausea and Vomiting (N/V) HYDROcodone 2019- No 2{tbl} 2 tablet, Univers -acetaminop 12-22 Oral, ity of hen (NORCO 13:00: 05:07 Q4HPRN, [place] 5) 5-325 mg 00 :52 Starting Medi frnak tablet 2 12/22/18 Branc h tablet at 0800, Until Mon12/24/18 at 0007, Routine, Pain (scale 7-10), If uncontroll ed by Ibuprofen coagulation 2019- No [id number] 10,000 Univers factor viia 12-22 mcg, Slow it y of recomb 12:00: 13:56 IV Push, [place] (NOVOSEVEN) 00 :00 ONCE, 1 Medic al injection dose, Sat Branc h 10,000 mcg 12/22/18 at 0700, SUSI
Us e approved by (Faculty and pager): Suresh SAUNDERS , [id number], HEMATOLOGY /ONCOLOGY HYDROcodone Yes 1{tbl} 1 tablet, [...] at Branch 0215, Routine coagulation 2019- No [id number] 10,000 Univers factor viia 12-22- mcg, Slow it y of recomb 07:15: 06:54 IV Push, [place] (NOVOSEVEN) 00 :00 ONCE, 1 Medic al injection dose, Sat Branc h 10,000 mcg 12/22/18 at 0215, Routine
Use approved by (Faculty and pager): Suresh SAUNDERS , [id number], HEMATOLOGY /ONCOLOGY hydrocortis Yes 25mg 25 mg, Univ ers one 12-22 Rectal, ity of (ANUSOL-HC) 04:10: BIDPRN, [place] as suppository 37 Starting Medi frank 25 mg 12/21/18 Branch at 2310, Until Discontinu ed, Routine, Rectal itching/pa in coagulation 2019- No [id number] 9,000 mcg, Univers factor viia 12-22 Slow IV ity of recomb 02:45: 02:13 Push, [place] (NOVOSEVEN) 00 :00 ONCE, 1 Medic al injection dose, Fri Branc h 9,000 mcg 12/21/18 at 2145, Routine
Use approved by (Faculty and pager): Suresh SAUNDERS , [id number], HEMATOLOGY /ONCOLOGY coagulation 2019- No [id number] 10,000 Univers factor viia 12-21 mcg, Slow it y of recomb 20:00: 20:27 IV Push, [place] (NOVOSEVEN) 00 :00 ONCE, 1 Medic al injection dose, Mon Branc h 10,000 mcg 12/21/18 at 1500, SUSI
Us e approved by (Faculty and pager): Suresh SAUNDERS , [id number], HEMATOLOGY /ONCOLOGY morpHINE 30 2019- No Unive rs mg/30 mL 12-21 ity of (fixed 18:00: 06:27 [place] dose) INSPECTOR SHELLS 00 :24 Medical injection Branch coagulation 2019- No [id number] 10,000 Univers factor viia 12-21 mcg, Slow it y of recomb 17:10: 17:55 IV Push, [place] (NOVOSEVEN) 00 :00 ONCE, 1 Medic al injection dose, Mon Branc h 10,000 mcg 12/21/18 at 1215, SUSI
Us e approved by (Faculty and pager): Suresh SAUNDERS , [id number], HEMATOLOGY /ONCOLOGY LR 1000 mL 2019- No at 125 Univ ers + oxytocin 12-21 mL/hr, IV ity of 20 units IV 17:00: 16:59 Infusion, [place] Solution 00 :00 CONTINUOUS Medic al , Starting Branch 12/21/18 at 1200, Until 12/22/18 at 1159, SUSI morpHINE 2 2018- No Slow IV Uni vers mg/mL LOAD 12-21 Push, ity of & RESCUE 16:52: 06:27 Routine [place] INJECTION 59 :24 Medical SYRG Branch lactated Yes 1000mL at 75 Univer s ringers IV 12-21 mL/hr, ity of infusion 16:30: 1,000 mL, [place] 1,000 mL 00 IV Medical Infusion, Branch CONTINUOUS , Starting Mon12/21/18 at 1130, Until Discontinu ed, Routine, PACU morpHINE Yes 2mg 2 mg, Slow Uni vers injection 2 12-21 IV Push, ity of mg 16:26: Q5MIN PRN, [place] 05 5 doses, Medical Starting Branch Mon12/21/18 at 1126, Until Discontinu ed, Routine, Pain (scale 4-6), PACU ondansetron 2019- No 4mg 4 mg, Slow Univers (ZOFRAN 12-21 IV Push, ity of (PF)) 16:26: 02:53 PRN, 1 [place] injection 4 05 :00 dose, Medical mg Starting Branch Mon12/21/18 at 1126, Until Discontinu ed, Routine, Nausea and Vomiting (N/V), PACU 2019- No 1{tbl} 1 tablet, [facility] vitamin 12-21 Oral, ity of w/FA 14:00: 06:27 DAILY, [place] (PRENATABS 00 :24 First dose Med ical RX) tablet on Mon Branch 1 tablet 12/21/18 at 0900, Until Discontinu ed, Routine diphenhydrA 2019- No 25mg 25 mg, Uni vers MINE 12-21 Slow IV ity of (BENADRYL) 14:00: 13:46 Push, [place] injection 00 :00 ONCE, 1 Medical 25 mg dose, Fri Branch 12/21/18 at 0900, Routine lactated 2019- No 500mL at 999 Unive rs ringers IV 12-21 mL/hr, 500 it y of infusion 12:30: 12:30 mL, IV [place] 500 mL 00 :00 Infusion, Medical ONCE, 1 Branch dose, 12/21/18 at 0730, Routine gentamicin 2019- No 5mg/kg 388 mg (5 Univers 388 mg in 12-21 mg/kg ity of NaCl 0.9% 11:49: 15:46 ?77.6 kg [place] as (NS) 250 mL 07 :00 Adjusted Medi frank IV infusion weight), Bran ch IV Infusion, O.R. HOLDING ONCE, 1 dose, Starting Mon12/21/18 at 0649, Until Discontinu ed, 250 mL
Reas on for Anti-Infec tive: Surgical Prophylaxi s
[place] rgical Prophylaxi s: ADULT REMEDIAL EDUCATION INSTRUCTOR
Duration of therapy: within 24 hours of [...] Surgical Prophylaxi s
Surgi frank Prophylaxi s: ADULT REMEDIAL EDUCATION INSTRUCTOR
Duration of therapy: within 24 hours of surgery
Restricte d use approved by: ADULT REMEDIAL EDUCATION INSTRUCTOR FACULTY sodium 2019- No 30mL 30 mL, Univers citrate-cit 12-21 Oral, ity of marino acid 11:22: 14:47 PRE-PROCED [place] (BICITRA) 44 :00 URE ONCE, Medic al 500-334 1 dose, Branch mg/5 mL Starting solution 30 Mon12/21/18 mL at 0622, Until Discontinu ed, Routine, Surgery docusate 2019- No 240mg 240 mg, Univ ers calcium 12-21 Oral, ity of (SURFAK) 01:45: 06:27 [place], [place] capsule 240 30 :24 Starting Medi frank mg Jeny 12/20/18 Branch at 2045, Until 12/24/18 at 0127, Routine, Constipati on vitamin Yes 500ug Take 500 Unive rs B-12 500 8-19 mcg by ity of mcg tablet 22:25: mouth [place] 38 daily. Medical Branch vitamin C Yes 100mg Take 100 Uni vers 100 mg 8-19 mg by ity of tablet 22:25: mouth [place] 38 daily. Medical Branch vitamin 2019-0 Yes 500ug Take 500 Unive rs B-12 500 8-19 mcg by ity of mcg tablet 22:25: mouth [place] 38 daily. Medical Branch vitamin C 2019-0 Yes 100mg Take 100 Uni vers 100 mg 8-19 mg by ity of tablet 22:25: mouth [place] 38 daily. Medical Branch vitamin 2019-0 Yes 500ug Take 500 Unive rs B-12 500 8-19 mcg by ity of mcg tablet 22:25: mouth [place] 38 daily. Medical Branch vitamin C 2019-0 Yes 100mg Take 100 Uni vers 100 mg 8-19 mg by ity of tablet 22:25: mouth [place] 38 daily. Medical Branch vitamin 2019-0 Yes 500ug Take 500 Unive rs B-12 500 8-19 mcg by ity of mcg tablet 22:25: mouth [place] 38 daily. Medical Branch vitamin C 2019-0 Yes 100mg Take 100 Uni vers 100 mg 8-19 mg by ity of tablet 22:25: mouth [place] 38 daily. Medical Branch vitamin 2019-0 Yes 500ug Take 500 Unive rs B-12 500 8-19 mcg by ity of mcg tablet 22:25: mouth [place] 38 daily. Medical Branch vitamin C 2019-0 Yes 100mg Take 100 Uni vers 100 mg 8-19 mg by ity of tablet 22:25: mouth [place] 38 daily. Medical Branch vitamin 2019-0 Yes 500ug Take 500 Unive rs B-12 500 8-19 mcg by ity of mcg tablet 22:25: mouth [place] 38 daily. Medical Branch vitamin C 2019-0 Yes 100mg Take 100 Uni vers 100 mg 8-19 mg by ity of tablet 22:25: mouth [place] 38 daily. Medical Branch vitamin 2019-0 Yes 500ug Take 500 Unive rs B-12 500 8-19 mcg by ity of mcg tablet 22:25: mouth [place] 38 daily. Medical Branch vitamin C 2019-0 Yes 100mg Take 100 Uni vers 100 mg 8-19 mg by ity of tablet 22:25: mouth [place] 38 daily. Medical Branch vitamin 2019-0 Yes 500ug Take 500 Unive rs B-12 500 8-19 mcg by ity of mcg tablet 22:25: mouth [place] 38 daily. Medical Branch vitamin C 2019-0 Yes [...] 18 daily. Medical Branch ferrous 2019-0 Yes [id number] 325mg Take 1 Un brayden sulfate 325 7-02 tablet by ity of mg (65 mg 00:00: mouth 2 [place] iron) 00 (two) Medical tablet times Branch daily. ferrous 2019-0 Yes [id number] 325mg Take 1 Un brayden sulfate 325 7-02 tablet by ity of mg (65 mg 00:00: mouth 2 [place] iron) 00 (two) Medical tablet times Branch daily. ferrous 2019-0 Yes [id number] 325mg Take 1 Un brayden sulfate 325 7-02 tablet by ity of mg (65 mg 00:00: mouth 2 [place] iron) 00 (two) Medical tablet times Branch daily. ferrous 2019-0 Yes [id number] 325mg Take 1 Un brayden sulfate 325 7-02 tablet by ity of mg (65 mg 00:00: mouth 2 [place] iron) 00 (two) Medical tablet times Branch daily. ferrous 2019-0 Yes [id number] 325mg Take 1 Un brayden sulfate 325 7-02 tablet by ity of mg (65 mg 00:00: mouth 2 [place] iron) 00 (two) Medical tablet times Branch daily. ferrous 2019-0 Yes [id number] 325mg Take 1 Un brayden sulfate 325 7-02 tablet by [facility]y of mg (65 mg 00:00: mouth 2 [place] iron) 00 (two) Medical tablet times Branch daily. ferrous 2019-0 Yes [id number] 325mg Take 1 Un brayden sulfate 325 7-02 tablet by ity of mg (65 mg 00:00: mouth 2 [place] [facility]) 00 (two) Medical tablet times Branch daily. ferrous 2019-0 Yes [id number] 325mg Take 1 Un brayden sulfate 325 7-02 tablet by ity of mg (65 mg 00:00: mouth 2 [place] iron) 00 (two) Medical tablet times Branch daily. ferrous 2019-0 Yes [id number] 325mg Take 1 Un brayden sulfate 325 7-02 tablet by ity of mg (65 mg 00:00: mouth 2 [place] iron) 00 (two) Medical tablet times Branch daily. ferrous 2019-0 Yes [id number] 325mg Take 1 Un brayden sulfate 325 7-02 tablet by ity of mg (65 mg 00:00: mouth 2 [place] iron) 00 (two) Medical tablet times Branch daily. ferrous 2019-0 Yes [id number] 325mg Take 1 Un brayden sulfate 325 7-02 tablet by ity of mg (65 mg 00:00: mouth 2 [place] iron) 00 (two) Medical tablet times Branch daily. ferrous 2019-0 Yes [id number] 325mg Take 1 Un brayden sulfate 325 7-02 tablet by ity of mg (65 mg 00:00: mouth 2 [place] iron) 00 (two) Medical tablet times Branch daily. ferrous 2019-0 Yes [id number] 325mg Take 1 Un brayden sulfate 325 7-02 tablet by ity of mg (65 mg 00:00: mouth 2 [place] iron) 00 (two) Medical tablet times Branch daily. ferrous 2019-0 Yes [id number] 325mg Take 1 Un brayden sulfate 325 7-02 tablet by ity of mg (65 mg 00:00: mouth 2 [place] iron) 00 (two) Medical tablet times Branch daily. ferrous 2018-0 Yes [id number] 325mg Take 1 Un brayden sulfate 325 7-02 tablet by ity of mg (65 mg 00:00: mouth 2 [place] iron) 00 (two) Medical tablet times Branch daily. ferrous 2018-0 Yes [id number] 325mg Take 1 Un brayden sulfate 325 7-02 tablet by ity of mg (65 mg 00:00: mouth 2 [place] iron) 00 (two) Medical tablet times Branch daily. ferrous 2019-0 Yes [id number] 325mg Take 1 Un brayden sulfate 325 7-02 tablet by ity of mg (65 mg 00:00: mouth 2 [place] iron) 00 (two) Medical tablet times Branch daily. ferrous 2018-0 Yes [id number] 325mg Take 1 Un brayden sulfate 325 7-02 tablet by ity of mg (65 mg 00:00: mouth 2 [place] iron) 00 (two) Medical tablet times Branch daily. ferrous 2019-0 Yes [id number] 325mg Take 1 Un brayden sulfate 325 7-02 tablet by ity of mg (65 mg 00:00: mouth 2 [place] iron) 00 (two) Medical tablet times Branch daily. ferrous 2019-0 Yes [id number] 325mg Take 1 Un brayden sulfate 325 7-02 tablet by ity of mg (65 mg 00:00: mouth 2 [place] iron) 00 (two) Medical tablet times Branch daily. ferrous 2019-0 Yes [id number] 325mg Take 1 Un brayden sulfate 325 7-02 tablet by ity of mg (65 mg 00:00: mouth 2 [place] iron) 00 (two) Medical tablet times Branch daily. ferrous 2019-0 Yes [id number] 325mg Take 1 Un brayden sulfate 325 7-02 tablet by ity of mg (65 mg 00:00: mouth 2 [place] iron) 00 (two) Medical tablet times Branch daily. ferrous 2019-0 Yes [id number] 325mg Take 1 Un brayden sulfate 325 7-02 tablet by ity of mg (65 mg 00:00: mouth 2 [place] iron) 00 (two) Medical tablet times Branch daily. ferrous 2019-0 Yes [id number] 325mg Take 1 Un brayden sulfate 325 7-02 tablet by ity of mg (65 mg 00:00: mouth 2 [place] iron) 00 (two) Medical tablet times Branch daily. ferrous 2019-0 Yes [id number] 325mg Take 1 Un brayden sulfate 325 7-02 tablet by ity of mg (65 mg 00:00: mouth 2 [place] iron) 00 (two) Medical tablet times Branch daily. ferrous 2018-0 Yes [id number] 325mg Take 1 Un brayden sulfate 325 7-02 tablet by ity of mg (65 mg 00:00: mouth 2 [place] iron) 00 (two) Medical tablet times Branch daily. ferrous 2019-0 Yes [id number] 325mg Take 1 Un brayden sulfate 325 7-02 tablet by ity of mg (65 mg 00:00: mouth 2 [place] iron) 00 (two) Medical tablet times Branch daily. ferrous 2019-0 Yes [id number] 325mg Take 1 Un brayden sulfate 325 7-02 tablet by ity of mg (65 mg 00:00: mouth 2 [place] iron) 00 (two) Medical tablet times Branch daily. ferrous 2019-0 Yes [id number] 325mg Take 1 Un brayden sulfate 325 7-02 tablet by ity of mg (65 mg 00:00: mouth 2 [place] iron) 00 (two) Medical tablet times Branch daily. ferrous 2019-0 Yes [id number] 325mg Take 1 Un brayden sulfate 325 7-02 tablet by ity of mg (65 mg 00:00: mouth 2 [place] iron) 00 (two) Medical tablet times Branch daily. ferrous 2019-0 Yes [id number] 325mg Take 1 Un brayden sulfate 325 7-02 tablet by ity of mg (65 mg 00:00: mouth 2 [place] iron) 00 (two) Medical tablet times Branch daily. ferrous 2019-0 Yes [id number] 325mg Take 1 Un brayden sulfate 325 7-02 tablet by ity of mg (65 mg 00:00: mouth 2 [place] iron) 00 (two) Medical tablet times Branch daily. ferrous 2019-0 Yes [id number] 325mg Take 1 Un brayden sulfate 325 7-02 tablet by ity of mg (65 mg 00:00: mouth 2 [place] iron) 00 (two) Medical tablet times Branch daily. ferrous 2019-0 Yes [id number] 325mg Take 1 Un brayden sulfate 325 7-02 tablet by ity of mg (65 mg 00:00: mouth 2 [place] iron) 00 (two) Medical tablet times Branch daily. ferrous 2019-0 Yes [id number] 325mg Take 1 Un brayden sulfate 325 7-02 tablet by ity of mg (65 mg 00:00: mouth 2 [place] iron) 00 (two) Medical tablet times Branch daily. ferrous 2018-0 Yes [id number] 325mg Take 1 Un brayden sulfate 325 7-02 tablet by ity of mg (65 mg 00:00: mouth 2 [place] iron) 00 (two) Medical tablet times Branch daily. ferrous 2019-0 Yes [id number] 325mg Take 1 Un brayden sulfate 325 7-02 tablet by ity of mg (65 mg 00:00: mouth 2 [place] iron) 00 (two) Medical tablet times Branch daily. ferrous 2019-0 Yes [id number] 325mg Take 1 Un brayden sulfate 325 7-02 tablet by ity of mg (65 mg 00:00: mouth 2 [place] iron) 00 (two) Medical tablet times Branch daily. PNV 67-iron 2018- Yes [id number] 1{each} Take 1 Univers ps-folate 4-05 Each by ity of no.1-dha 00:00: mouth [place] (VITAFOL 00 daily. Medical ULTRA) 29 Branch mg iron- 1 mg-200 mg Cap PNV 67-iron 2018- Yes [id number] 1{each} Take 1 Univers ps-folate 4-05 Each by ity of no.1-dha 00:00: mouth [place] (VITAFOL 00 daily. Medical ULTRA) 29 Branch mg iron- 1 mg-200 mg Cap PNV 67-iron 2018-0 Yes [id number] 1{each} Take 1 Univers ps-folate 4-05 Each by ity of no.1-dha 00:00: mouth [place] (VITAFOL 00 daily. Medical ULTRA) 29 Branch mg iron- 1 mg-200 mg Cap PNV 67-iron 2019-0 Yes [id number] 1{each} Take 1 Univers ps-folate 4-05 Each by ity of no.1-dha 00:00: mouth [place] (VITAFOL 00 daily. Medical ULTRA) 29 Branch mg iron- 1 mg-200 mg Cap PNV 67-iron 2019-0 Yes [id number] 1{each} Take 1 Univers ps-folate 4-05 Each by ity of no.1-dha 00:00: mouth [place] (VITAFOL 00 daily. Medical ULTRA) 29 Branch mg iron- 1 mg-200 mg Cap PNV 67-iron 2019-0 Yes [id number] 1{each} Take 1 Univers ps-folate 4-05 Each by ity of no.1-dha 00:00: mouth [place] (VITAFOL 00 daily. Medical ULTRA) 29 Branch mg iron- 1 mg-200 mg Cap PNV 67-iron 2019-0 Yes [id number] 1{each} Take 1 Univers ps-folate 4-05 Each by ity of no.1-dha 00:00: mouth [place] (VITAFOL 00 daily. Medical ULTRA) 29 Branch mg iron- 1 mg-200 mg Cap PNV 67-iron 2019-0 Yes [id number] 1{each} Take 1 Univers ps-folate 4-05 Each by ity of no.1-dha 00:00: mouth [place] (VITAFOL 00 daily. Medical ULTRA) 29 Branch mg iron- 1 mg-200 mg Cap PNV 67-iron 2019-0 Yes [id number] 1{each} Take 1 Univers ps-folate 4-05 Each by ity of no.1-dha 00:00: mouth [place] (VITAFOL 00 daily. Medical ULTRA) 29 Branch mg iron- 1 mg-200 mg Cap PNV 67-iron 2019-0 Yes [id number] 1{each} Take 1 Univers ps-folate 4-05 Each by ity of no.1-dha 00:00: mouth [place] (VITAFOL 00 daily. Medical ULTRA) 29 Branch mg iron- 1 mg-200 mg Cap PNV 67-iron 2019-0 Yes [id number] 1{each} Take 1 Univers ps-folate 4-05 Each by ity of no.1-dha 00:00: mouth [place] (VITAFOL 00 daily. Medical ULTRA) 29 Branch mg iron- 1 mg-200 mg Cap PNV 67-iron 2019-0 Yes [id number] 1{each} Take 1 Univers ps-folate 4-05 Each by ity of no.1-dha 00:00: mouth [place] (VITAFOL 00 daily. Medical ULTRA) 29 Branch mg iron- 1 mg-200 mg Cap PNV 67-iron 2019-0 Yes [id number] 1{each} Take 1 Univers ps-folate 4-05 Each by ity of no.1-dha 00:00: mouth [place] (VITAFOL 00 daily. Medical ULTRA) 29 Branch mg iron- 1 mg-200 mg Cap PNV 67-iron 2019-0 Yes [id number] 1{each} Take 1 Univers ps-folate 4-05 Each by ity of no.1-dha 00:00: mouth [place] (VITAFOL 00 daily. Medical ULTRA) 29 Branch mg iron- 1 mg-200 mg Cap PNV 67-iron 2019-0 Yes [id number] 1{each} Take 1 Univers ps-folate 4-05 Each by ity of no.1-dha 00:00: mouth [place] (VITAFOL 00 daily. Medical ULTRA) 29 Branch mg iron- 1 mg-200 mg Cap PNV 67-iron 2019-0 Yes [id number] 1{each} Take 1 Univers ps-folate 4-05 Each by ity of no.1-dha 00:00: mouth [place] (VITAFOL 00 daily. Medical ULTRA) 29 Branch mg iron- 1 mg-200 mg Cap PNV 67-iron 2019-0 Yes [id number] 1{each} Take 1 Univers ps-folate 4-05 Each by ity of no.1-dha 00:00: mouth [place] (VITAFOL 00 daily. Medical ULTRA) 29 Branch mg iron- 1 mg-200 mg Cap PNV 67-iron 2019-0 Yes [id number] 1{each} Take 1 Univers ps-folate 4-05 Each by ity of no.1-dha 00:00: mouth [place] (VITAFOL 00 daily. Medical ULTRA) 29 Branch mg iron- 1 mg-200 mg Cap PNV 67-iron 2019-0 Yes [id number] 1{each} Take 1 Univers ps-folate 4-05 Each by ity of no.1-dha 00:00: mouth [place] (VITAFOL 00 daily. Medical ULTRA) 29 Branch mg iron- 1 mg-200 mg Cap PNV 67-iron 2019-0 Yes [id number] 1{each} Take 1 Univers ps-folate 4-05 Each by ity of no.1-dha 00:00: mouth [place] (VITAFOL 00 daily. Medical ULTRA) 29 Branch mg iron- 1 mg-200 mg Cap PNV 67-iron 2019-0 Yes [id number] 1{each} Take 1 Univers ps-folate 4-05 Each by ity of no.1-dha 00:00: mouth [place] (VITAFOL 00 daily. Medical ULTRA) 29 Branch mg iron- 1 mg-200 mg Cap PNV 67-iron 2019-0 Yes [id number] 1{each} Take 1 Univers ps-folate 4-05 Each by ity of no.1-dha 00:00: mouth [place] (VITAFOL 00 daily. Medical ULTRA) 29 Branch mg iron- 1 mg-200 mg Cap PNV 67-iron 2019-0 Yes [id number] 1{each} Take 1 Univers ps-folate 4-05 Each by ity of no.1-dha 00:00: mouth [place] (VITAFOL 00 daily. Medical ULTRA) 29 Branch mg iron- 1 mg-200 mg Cap PNV 67-iron 2019-0 Yes [id number] 1{each} Take 1 Univers ps-folate 4-05 Each by ity of no.1-dha 00:00: mouth [place] (VITAFOL 00 daily. Medical ULTRA) 29 Branch mg iron- 1 mg-200 mg Cap PNV 67-iron 2019-0 Yes [id number] 1{each} Take 1 Univers ps-folate 4-05 Each by ity of no.1-dha 00:00: mouth [place] (VITAFOL 00 daily. Medical ULTRA) 29 Branch mg iron- 1 mg-200 mg Cap PNV 67-iron 2019-0 Yes [id number] 1{each} Take 1 Univers ps-folate 4-05 Each by ity of no.1-dha 00:00: mouth [place] (VITAFOL 00 daily. Medical ULTRA) 29 Branch mg iron- 1 mg-200 mg Cap PNV 67-iron 2019-0 Yes [id number] 1{each} Take 1 Univers ps-folate 4-05 Each by ity of no.1-dha 00:00: mouth [place] (VITAFOL 00 daily. Medical ULTRA) 29 Branch mg iron- 1 mg-200 mg Cap PNV 67-iron 2019-0 Yes [id number] 1{each} Take 1 Univers ps-folate 4-05 Each by ity of no.1-dha 00:00: mouth [place] (VITAFOL 00 daily. Medical ULTRA) 29 Branch mg iron- 1 mg-200 mg Cap PNV 67-iron 2019-0 Yes [id number] 1{each} Take 1 Univers ps-folate 4-05 Each by ity of no.1-dha 00:00: mouth [place] (VITAFOL 00 daily. Medical ULTRA) 29 Branch mg iron- 1 mg-200 mg Cap PNV 67-iron 2019-0 Yes [id number] 1{each} Take 1 Univers ps-folate 4-05 Each by ity of no.1-dha 00:00: mouth [place] (VITAFOL 00 daily. Medical ULTRA) 29 Branch mg iron- 1 mg-200 mg Cap PNV 67-iron 2019-0 Yes [id number] 1{each} Take 1 Univers ps-folate 4-05 Each by ity of no.1-dha 00:00: mouth [place] (VITAFOL 00 daily. Medical ULTRA) 29 Branch mg iron- 1 mg-200 mg Cap PNV 67-iron 2019-0 Yes [id number] 1{each} Take 1 Univers ps-folate 4-05 Each by ity of no.1-dha 00:00: mouth [place] (VITAFOL 00 daily. Medical ULTRA) 29 Branch mg iron- 1 mg-200 mg Cap PNV 67-iron 2019-0 Yes [id number] 1{each} Take 1 Univers ps-folate 4-05 Each by ity of no.1-dha 00:00: mouth [place] (VITAFOL 00 daily. Medical ULTRA) 29 Branch mg iron- 1 mg-200 mg Cap PNV 67-iron 2019-0 Yes [id number] 1{each} Take 1 Univers ps-folate 4-05 Each by ity of no.1-dha 00:00: mouth [place] (VITAFOL 00 daily. Medical ULTRA) 29 Branch mg iron- 1 mg-200 mg Cap PNV 67-iron 2019-0 Yes [id number] 1{each} Take 1 Univers ps-folate 4-05 Each by ity of no.1-dha 00:00: mouth [place] (VITAFOL 00 daily. Medical ULTRA) 29 Branch mg iron- 1 mg-200 mg Cap PNV 67-iron 2019- Yes [id number] 1{each} Take 1 Univers ps-folate 4-05 Each by ity of no.1-dha 00:00: mouth [place] (VITAFOL 00 daily. Medical ULTRA) 29 Branch mg iron- 1 mg-200 mg Cap PNV 67-iron 2018- Yes [id number] 1{each} Take 1 Univers ps-folate 4-05 Each by ity of no.1-dha 00:00: mouth [place] (VITAFOL 00 daily. Medical ULTRA) 29 Branch mg iron- 1 mg-200 mg Cap PNV 67-iron 2018- Yes [id number] 1{each} Take 1 Univers ps-folate 4-05 Each by ity of no.1-dha 00:00: mouth [place] (VITAFOL 00 daily. Medical ULTRA) 29 Branch mg iron- 1 mg-200 mg Cap Immunizations Ordered Filled Immunization Date Status Comments Sour e Immunization Name Name TDAP (ADACEL) 2018-10-15 Completed University of VACCINE 00:00:00 [facility] TDAP (ADACEL) 2018-10-15 Completed University of VACCINE 00:00:00 [facility] TDAP (ADACEL) 2018-10-15 Completed University of VACCINE 00:00:00 [facility] TDAP (ADACEL) 2018-10-15 Completed University of VACCINE 00:00:00 [facility] TDAP (ADACEL) 2018-10-15 Completed University of VACCINE 00:00:00 [facility] TDAP (ADACEL) 2018-10-15 Completed University of VACCINE 00:00:00 [facility] TDAP (ADACEL) 2018-10-15 Completed University of VACCINE 00:00:00 [place] [facility] TDAP (ADACEL) 2018-10-15 Completed University of VACCINE 00:00:00 [facility] TDAP (ADACEL) 2018-10-15 Completed University of VACCINE 00:00:00 [place] [facility] TDAP (ADACEL) 2018-10-15 Completed University of VACCINE 00:00:00 [place] [facility] TDAP (ADACEL) 2018-10-15 Completed University of VACCINE 00:00:00 [facility] TDAP (ADACEL) 2018-10-15 Completed University of VACCINE 00:00:00 [place] [facility] TDAP (ADACEL) 2018-10-15 Completed University of VACCINE 00:00:00 [facility] TDAP (ADACEL) 2018-10-15 Completed University of VACCINE 00:00:00 [facility] TDAP (ADACEL) 2018-10-15 Completed University of VACCINE 00:00:00 [facility] TDAP (ADACEL) 2018-10-15 Completed [facility] of VACCINE 00:00:00 [facility] TDAP (ADACEL) 2018-10-15 Completed University of VACCINE 00:00:00 [facility] TDAP (ADACEL) 2018-10-15 Completed University of VACCINE 00:00:00 [facility] TDAP (ADACEL) 2018-10-15 Completed University of VACCINE 00:00:00 [facility] TDAP (ADACEL) 2018-10-15 Completed University of VACCINE 00:00:00 [facility] TDAP (ADACEL) 2018-10-15 Completed [facility] of VACCINE 00:00:00 [facility] TDAP (ADACEL) 2018-10-15 Completed [facility] of VACCINE 00:00:00 [facility] TDAP (ADACEL) 2018-10-15 Completed University of VACCINE 00:00:00 [facility] TDAP (ADACEL) 2018-10-15 Completed University of VACCINE 00:00:00 [facility] TDAP (ADACEL) 2018-10-15 Completed University of VACCINE 00:00:00 [facility] TDAP (ADACEL) 2018-10-15 Completed University of VACCINE 00:00:00 [facility] TDAP (ADACEL) 2018-10-15 Completed [facility] of VACCINE 00:00:00 [facility] TDAP (ADACEL) 2018-10-15 Completed University of VACCINE 00:00:00 [facility] TDAP (ADACEL) 2018-10-15 Completed University of VACCINE 00:00:00 [facility] TDAP (ADACEL) 2018-10-15 Completed University of VACCINE 00:00:00 [facility] TDAP (ADACEL) 2018-10-15 Completed University of VACCINE 00:00:00 [facility] TDAP (ADACEL) 2018-10-15 Completed University of VACCINE 00:00:00 [facility] TDAP (ADACEL) 2018-10-15 Completed University of VACCINE 00:00:00 [facility] TDAP (ADACEL) 2018-10-15 Completed University of VACCINE 00:00:00 [facility] TDAP (ADACEL) 2018-10-15 Completed University of VACCINE 00:00:00 [facility] TDAP (ADACEL) 2018-10-15 Completed University of VACCINE 00:00:00 [facility] TDAP (ADACEL) 2018-10-15 Completed University of VACCINE 00:00:00 [facility] TDAP (ADACEL) 2018-10-15 Completed University of VACCINE 00:00:00 [facility] Vital Signs Vital Name Observation Time Observation Value Comments Source Systolic blood 2019-01-01 14:00:00 124 mm[Hg] Univer sity of pressure [facility] Diastolic blood 2019-01-01 14:00:00 85 mm[Hg] Unive rsity of pressure [place] [facility] Heart rate 2019-01-01 14:00:00 60 /min Universi ty of [facility] Respiratory rate 2019-01-01 14:00:00 18 /min Univ ersity of [place] [facility] Oxygen saturation in 2019-01-01 14:00:00 98 /min University of Arterial blood by [place] [facility] [employer] [facility] Pulse oximetry Branch Body temperature 2019-01-01 13:15:00 36.78 Radha Univ ersity of [place] [facility] Body weight 2019-01-01 03:07:00 101.651 kg Universi ty of [place] [facility] BMI 2019-01-01 03:07:00 36.17 kg/m2 Universi ty of [place] [facility] Systolic blood 2019-01-01 14:00:00 124 mm[Hg] Univer sity of pressure [place] [facility] Diastolic blood 2019-01-01 14:00:00 85 mm[Hg] Unive rsity of pressure [facility] Heart rate 2019-01-01 14:00:00 60 /min Universi ty of [place] [facility] Respiratory rate 2019-01-01 14:00:00 18 /min Univ ersity of [place] [facility] Oxygen saturation in 2019-01-01 14:00:00 98 /min [facility] of Arterial blood by [place] [facility] [employer] [facility] Pulse oximetry Branch Body temperature 2019-01-01 13:15:00 36.78 Radha [facility] ers[facility] of [place] [facility] Body weight 2019-01-01 03:07:00 101.651 kg Universi ty of [place] [facility] BMI 2019-01-01 03:07:00 36.17 kg/m2 [facility] of [place] [facility] Systolic blood 2018-12-31 20:26:00 162 mm[Hg] Univer sity of pressure [place] [facility] Diastolic blood 2018-12-31 20:26:00 90 mm[Hg] Unive rsity of pressure [place] [facility] Heart rate 2018-12-31 20:21:00 67 /min Universi [facility] of [place] [facility] Body temperature 2018-12-31 20:21:00 37.06 Radha [facility] of [place] [facility] Respiratory rate 2018-12-31 20:21:00 16 /min Univ ersity of [place] [facility] Body height 2018-12-31 20:21:00 167.6 cm [facility]i [facility] of [place] [facility] Body weight 2018-12-31 20:21:00 102.116 kg [facility]i [facility] of [place] [facility] BMI 2018-12-31 20:21:00 36.34 kg/m2 [facility] of [place] [facility] Systolic blood 2018-12-31 20:26:00 162 mm[Hg] Univer sity of pressure [place] [facility] Diastolic blood 2018-12-31 20:26:00 90 mm[Hg] Unive rsity of pressure [place] [facility] Heart rate 2018-12-31 20:21:00 67 /min [facility]i [facility] of [place] [facility] Body temperature 2018-12-31 20:21:00 37.06 Radha [facility] of [place] [facility] Respiratory rate 2018-12-31 20:21:00 16 /min Univ ersity of [place] [facility] Body height 2018-12-31 20:21:00 167.6 cm [facility]i [facility] of [place] [facility] Body weight 2018-12-31 20:21:00 102.116 kg [facility]i [facility] of [place] [facility] BMI 2018-12-31 20:21:00 36.34 kg/m2 [facility] [place] [facility] Systolic blood 2018-12-29 05:30:00 133 mm[Hg] Univer sity of pressure [place] [facility] Diastolic blood 2018-12-29 05:30:00 77 mm[Hg] Unive rsity of pressure [place] [facility] Heart rate 2018-12-29 05:30:00 52 /min [facility]i ty of [place] [facility] Respiratory rate 2018-12-29 05:30:00 15 /min Univ ersity of [facility] Oxygen saturation in 2018-12-29 05:30:00 98 /min [facility] Arterial blood by [place] [facility] Pulse oximetry Branch Body temperature 2018-12-29 00:43:00 37.17 Radha Univ ersity of [place] [facility] Body height 2018-12-29 00:43:00 167.6 cm Universi ty of [place] [facility] Body weight 2018-12-29 00:43:00 108.863 kg [facility]i [facility] of [place] [facility] BMI 2018-12-29 00:43:00 38.74 kg/m2 [facility] [place] [facility] Systolic blood 2018-12-29 05:30:00 133 mm[Hg] Univer sity of pressure [place] [facility] Diastolic blood 2018-12-29 05:30:00 77 mm[Hg] Unive rsity of pressure [facility] Heart rate 2018-12-29 05:30:00 52 /min [facility]i ty of [place] [facility] Respiratory rate 2018-12-29 05:30:00 15 /min Univ ersity of [facility] Oxygen saturation in 2018-12-29 05:30:00 98 /min University of Arterial blood by [facility] Pulse oximetry Branch Body temperature 2018-12-29 00:43:00 37.17 Radha Univ [facility] of [place] [facility] Body height 2018-12-29 00:43:00 167.6 cm [facility]i [facility] of [place] [facility] Body weight 2018-12-29 00:43:00 108.863 kg [facility] [place] [facility] BMI 2018-12-29 00:43:00 38.74 kg/m2 [facility] [place] [facility] Systolic blood 2018-12-28 18:47:00 172 mm[Hg] Univer sity of pressure [facility] Diastolic blood 2018-12-28 18:47:00 90 mm[Hg] Unive rsity of pressure [facility] Heart rate 2018-12-28 18:47:00 52 /min [facility] [place] [facility] Body temperature 2018-12-28 18:32:00 36.89 Radha [facility] of [place] [facility] Respiratory rate 2018-12-28 18:32:00 16 /min Univ ersity of [facility] Body height 2018-12-28 18:32:00 165.1 cm [facility] of [place] [facility] Body weight 2018-12-28 18:32:00 109.118 kg [facility] of [place] [facility] BMI 2018-12-28 18:32:00 40.03 kg/m2 [facility] [place] [facility] Systolic blood 2018-12-28 18:47:00 172 mm[Hg] Univer sity of pressure [facility] Diastolic blood 2018-12-28 18:47:00 90 mm[Hg] Unive rsity of pressure [facility] Heart rate 2018-12-28 18:47:00 52 /min [facility] [place] [facility] Body temperature 2018-12-28 18:32:00 36.89 Radha [facility] [place] [facility] Respiratory rate 2018-12-28 18:32:00 16 /min [facility] ersity of [place] [facility] Body height 2018-12-28 18:32:00 165.1 cm [facility] Body weight 2018-12-28 18:32:00 109.118 kg [facility] [place] [facility] BMI 2018-12-28 18:32:00 40.03 kg/m2 Universi ty of [facility] Body temperature 2018-12-24 13:00:00 36.61 Radha [facility] of [place] [facility] Systolic blood 2018-12-24 09:00:00 119 mm[Hg] Univer sity of pressure [facility] Diastolic blood 2018-12-24 09:00:00 79 mm[Hg] Unive rsity of pressure [facility] Heart rate 2018-12-24 09:00:00 69 /min [facility]i ty of [place] [facility] Respiratory rate 2018-12-24 09:00:00 18 /min Univ ersity of [facility] Oxygen saturation in 2018-12-24 09:00:00 99 /min University Arterial blood by [facility] Pulse oximetry Branch Body height 2018-12-21 15:30:00 165.1 cm [facility] ty of [facility] Body weight 2018-12-21 15:30:00 108.636 kg [facility] of [facility] BMI 2018-12-21 15:30:00 39.85 kg/m2 [facility] Body temperature 2018-12-24 13:00:00 36.61 Radha [facility] [place] [facility] Systolic blood 2018-12-24 09:00:00 119 mm[Hg] Univer sity of pressure [facility] Diastolic blood 2018-12-24 09:00:00 79 mm[Hg] Unive rsity of pressure [facility] Heart rate 2018-12-24 09:00:00 69 /min [facility]i [facility] [place] [facility] Respiratory rate 2018-12-24 09:00:00 18 /min Univ ersity of [facility] Oxygen saturation in 2018-12-24 09:00:00 99 /min University of Arterial blood by [facility] Pulse oximetry Branch Body height 2018-12-21 15:30:00 165.1 cm Universi ty of [facility] Body weight 2018-12-21 15:30:00 108.636 kg Universi ty of [facility] BMI 2018-12-21 15:30:00 39.85 kg/m2 Universi ty of [facility] Systolic blood 2018-12-20 15:34:00 113 mm[Hg] Univer sity of pressure [facility] Diastolic blood 2018-12-20 15:34:00 72 mm[Hg] Unive rsity of pressure [facility] Heart rate 2018-12-20 15:34:00 90 /min [facility] Body temperature 2018-12-20 15:34:00 36.78 Radha [facility] Respiratory rate 2018-12-20 15:34:00 16 /min [facility] Body weight 2018-12-20 15:34:00 108.636 kg [facility] BMI 2018-12-20 15:34:00 39.85 kg/m2 [facility] of [facility] Systolic blood 2018-12-20 15:34:00 113 mm[Hg] Univer sity of [facility] Diastolic blood 2018-12-20 15:34:00 72 mm[Hg] Unive rsity of pressure [facility] Heart rate 2018-12-20 15:34:00 90 /min [facility] Body temperature 2018-12-20 15:34:00 36.78 Radha [facility] of [facility] Respiratory rate 2018-12-20 15:34:00 16 /min [facility] Body weight 2018-12-20 15:34:00 108.636 kg [facility]i ty of [facility] BMI 2018-12-20 15:34:00 39.85 kg/m2 [facility] of [facility] Systolic blood 2018-12-18 17:58:00 119 mm[Hg] [facility]ity [facility] Diastolic blood 2018-12-18 17:58:00 70 mm[Hg] Unive rsity of [facility] Heart rate 2018-12-18 17:58:00 80 /min [facility] Body temperature 2018-12-18 17:58:00 36.78 Radha [facility] Respiratory rate 2018-12-18 17:58:00 16 /min [facility] Body height 2018-12-18 17:58:00 165.1 cm [facility] Body weight 2018-12-18 17:58:00 109.43 kg [facility] BMI 2018-12-18 17:58:00 40.15 kg/m2 [facility] Systolic blood 2018-12-18 17:58:00 119 mm[Hg] [facility] Diastolic blood 2018-12-18 17:58:00 70 mm[Hg] Unive [facility]ity [facility] Heart rate 2018-12-18 17:58:00 80 /min [facility] Body temperature 2018-12-18 17:58:00 36.78 Radha [facility] Respiratory rate 2018-12-18 17:58:00 16 /min [facility] Body height 2018-12-18 17:58:00 165.1 cm [facility] Body weight 2018-12-18 17:58:00 109.43 kg [facility] BMI 2018-12-18 17:58:00 40.15 kg/m2 [facility] Systolic blood 2018-12-13 18:42:00 110 mm[Hg] [facility] Diastolic blood 2018-12-13 18:42:00 56 mm[Hg] [facility]ive [facility] Heart rate 2018-12-13 18:42:00 74 /min [facility] Body temperature 2018-12-13 18:42:00 36.72 Radha [facility] Respiratory rate 2018-12-13 18:42:00 18 /min [facility] Body height 2018-12-13 18:42:00 165.1 cm [facility] Body weight 2018-12-13 18:42:00 109.544 kg [facility] BMI 2018-12-13 18:42:00 40.19 kg/m2 [facility] Systolic blood 2018-12-13 18:42:00 110 mm[Hg] [facility]iver [facility]ity [facility] Diastolic blood 2018-12-13 18:42:00 56 mm[Hg] Unive rsity of [facility] Heart rate 2018-12-13 18:42:00 74 /min [facility] Body temperature 2018-12-13 18:42:00 36.72 Radha [facility] Respiratory rate 2018-12-13 18:42:00 18 /min [facility] Body height 2018-12-13 18:42:00 165.1 cm [facility] Body weight 2018-12-13 18:42:00 109.544 kg [facility] BMI 2018-12-13 18:42:00 40.19 kg/m2 [facility] Systolic blood 2018-12-10 15:42:00 98 mm[Hg] [facility] Diastolic blood 2018-12-10 15:42:00 66 mm[Hg] [facility]ive [facility]ity [facility] Heart rate 2018-12-10 15:42:00 71 /min [facility] Body temperature 2018-12-10 15:42:00 37.06 Radha [facility] Respiratory rate 2018-12-10 15:42:00 16 /min [facility] Body height 2018-12-10 15:42:00 165.1 [...] 2018-12-10 15:42:00 16 /min [facility] Body height 2018-12-10 15:42:00 165.1 cm [facility] Body weight 2018-12-10 15:42:00 109.77 kg [facility] BMI 2018-12-10 15:42:00 40.27 kg/m2 [facility] Systolic blood 2018-12-06 15:34:00 122 mm[Hg] [facility] Diastolic blood 2018-12-06 15:34:00 64 mm[Hg] [facility]ive [facility] Heart rate 2018-12-06 15:34:00 95 /min [facility] Body temperature 2018-12-06 15:34:00 36.89 Radha [facility] Respiratory rate 2018-12-06 15:34:00 16 /min [facility] Body height 2018-12-06 15:34:00 165.1 cm [facility] Body weight 2018-12-06 15:34:00 111.33 kg [facility] BMI 2018-12-06 15:34:00 40.84 kg/m2 [facility] Systolic blood 2018-12-06 15:34:00 122 mm[Hg] [facility] Diastolic blood 2018-12-06 15:34:00 64 mm[Hg] Unive [facility]ity of [facility] Heart rate 2018-12-06 15:34:00 95 /min [facility]i [facility] of [facility] Body temperature 2018-12-06 15:34:00 36.89 Radha [facility] Respiratory rate 2018-12-06 15:34:00 16 /min [facility] Body height 2018-12-06 15:34:00 165.1 cm [facility] Body weight 2018-12-06 15:34:00 111.33 kg [facility] BMI 2018-12-06 15:34:00 40.84 kg/m2 [facility] Heart rate 2018-12-03 21:30:00 77 /min [facility] Oxygen saturation in 2018-12-03 21:30:00 99 /min [facility] Arterial blood by [facility] Pulse oximetry Branch Systolic blood 2018-12-03 19:12:00 [...] 2018-12-03 21:30:00 77 /min [facility] Oxygen saturation in 2018-12-03 21:30:00 99 /min University of Arterial blood by [facility] Pulse oximetry Branch Systolic blood 2018-12-03 19:12:00 139 mm[Hg] Univer [facility]ity of [facility] Diastolic blood 2018-12-03 19:12:00 74 mm[Hg] Unive rsity of [facility] Body temperature 2018-12-03 19:12:00 36.83 Radha [facility] Respiratory rate 2018-12-03 19:12:00 18 /min [facility] Body height 2018-12-03 19:12:00 167.6 [...] 2018-12-03 15:02:00 17 /min [facility] Body height 2018-12-03 15:02:00 167.6 cm [facility] Body weight 2018-12-03 15:02:00 111.585 kg [facility] BMI 2018-12-03 15:02:00 39.71 kg/m2 [facility] Systolic blood 2018-12-03 15:02:00 113 mm[Hg] [facility]iver [facility]ity [facility] Diastolic blood 2018-12-03 15:02:00 60 mm[Hg] Unive rsity of [facility] Heart rate 2018-12-03 15:02:00 73 /min [facility] Body temperature 2018-12-03 15:02:00 36.89 Radha [facility] Respiratory rate 2018-12-03 15:02:00 17 /min [facility] Body height 2018-12-03 15:02:00 167.6 cm [facility] Body weight 2018-12-03 15:02:00 111.585 kg [facility] BMI 2018-12-03 15:02:00 39.71 kg/m2 [facility] Systolic blood 2018-11-29 17:58:00 136 mm[Hg] [facility]iver [facility] Diastolic blood 2018-11-29 17:58:00 80 mm[Hg] Unive rsity of [facility] Heart rate 2018-11-29 17:58:00 76 /min [facility] Body temperature 2018-11-29 17:58:00 37.06 Radha [facility] Respiratory rate 2018-11-29 17:58:00 16 /min [facility] Body height 2018-11-29 17:58:00 167.6 cm [facility] Body weight 2018-11-29 17:58:00 111.273 kg [facility] BMI 2018-11-29 17:58:00 39.59 kg/m2 [facility] Systolic blood 2018-11-29 17:58:00 136 mm[Hg] [facility]iver [facility]ity [facility] Diastolic blood 2018-11-29 17:58:00 80 mm[Hg] Unive rsity of [facility] Heart rate 2018-11-29 17:58:00 76 /min [facility] Body temperature 2018-11-29 17:58:00 37.06 Radha [facility] Respiratory rate 2018-11-29 17:58:00 16 /min [facility] Body height 2018-11-29 17:58:00 167.6 cm [facility] Body weight 2018-11-29 17:58:00 111.273 kg [facility] BMI 2018-11-29 17:58:00 39.59 kg/m2 [facility] Systolic blood 2018-11-26 15:17:00 116 mm[Hg] Univer [facility]ity of [facility] Diastolic blood 2018-11-26 15:17:00 76 mm[Hg] Unive rsity of [facility] Heart rate 2018-11-26 15:17:00 84 /min [facility] Body temperature 2018-11-26 15:17:00 37 Radha [facility] Respiratory rate 2018-11-26 15:17:00 16 /min [facility] Body height 2018-11-26 15:17:00 167.6 cm [facility] Body weight 2018-11-26 15:17:00 109.827 kg [facility] BMI 2018-11-26 15:17:00 39.08 kg/m2 [facility] Systolic blood 2018-11-22 13:11:00 108 mm[Hg] Univer [facility]ity of [facility] Diastolic blood 2018-11-22 13:11:00 62 mm[Hg] Unive rsity of [facility] Heart rate 2018-11-22 13:11:00 66 /min [facility] Body temperature 2018-11-22 13:11:00 36.72 Radha [facility] Respiratory rate 2018-11-22 13:11:00 16 /min [facility] Body height 2018-11-22 13:11:00 167.6 cm [facility] Body weight 2018-11-22 13:11:00 111.131 kg [facility] BMI 2018-11-22 13:11:00 39.54 kg/m2 [facility] Heart rate 2018-11-19 20:45:00 72 /min [facility] Oxygen saturation in 2018-11-19 20:15:00 100 /min University of Arterial blood by [facility] Pulse oximetry Branch Systolic blood 2018-11-19 17:41:00 135 mm[Hg] Univer sity of pressure [facility] Diastolic blood 2018-11-19 17:41:00 65 mm[Hg] Unive rsity of pressure [facility] Body temperature 2018-11-19 17:41:00 36.83 Radha [facility] Respiratory rate 2018-11-19 17:41:00 16 /min [facility] Body height 2018-11-19 17:41:00 167.6 cm [facility] Body weight 2018-11-19 17:41:00 109.77 kg [facility] BMI 2018-11-19 17:41:00 39.06 kg/m2 [facility]i ty of [facility] Systolic blood 2018-11-19 14:28:00 118 mm[Hg] [facility]iver [facility]ity of [facility] Diastolic blood 2018-11-19 14:28:00 64 mm[Hg] Unive rsity of pressure [facility] Heart rate 2018-11-19 14:28:00 62 /min [facility] Body temperature 2018-11-19 14:28:00 36.89 Radha [facility] Respiratory rate 2018-11-19 14:28:00 16 /min [facility] Body height 2018-11-19 14:28:00 167.6 cm [facility] Body weight 2018-11-19 14:28:00 109.941 kg [facility]i [facility] of [facility] BMI 2018-11-19 14:28:00 39.12 kg/m2 [facility] of [facility] Systolic blood 2018-11-15 19:28:00 123 mm[Hg] [facility]iver [facility] Diastolic blood 2018-11-15 19:28:00 68 mm[Hg] Unive rsity of pressure [facility] Heart rate 2018-11-15 19:28:00 73 /min [facility] Body temperature 2018-11-15 19:28:00 36.89 Radha [facility] Respiratory rate 2018-11-15 19:28:00 16 /min [facility] Body height 2018-11-15 19:28:00 167.6 cm Universi ty [facility] [place] Body weight 2018-11-15 19:28:00 110.309 kg Universi ty [facility] BMI 2018-11-15 19:28:00 39.25 kg/m2 Universi ty [facility] Systolic blood 2018-11-12 15:53:00 102 mm[Hg] [facility] sity of pressure [facility] Diastolic blood 2018-11-12 15:53:00 64 mm[Hg] [facility] Heart rate 2018-11-12 15:53:00 65 /min Universi ty [facility] Body temperature 2018-11-12 15:53:00 37.39 Radha [facility] Respiratory rate 2018-11-12 15:53:00 16 /min [facility] Body height 2018-11-12 15:53:00 167.6 cm Universi ty [facility] Medical [facility] Body weight 2018-11-12 15:53:00 109.941 kg Universi ty [facility] BMI 2018-11-12 15:53:00 39.12 kg/m2 [facility] Branch Procedures Procedure Date / Time Performing Clinician Source Performed US LOWER EXTREMITY VEIN 2019-01-01 07:50:21 Kortney [facility]IL[facility]AL [facility] FOR [facility] D[facility]) [facility] URINALYSIS 2019-01-01 04:17:00 Alo Moses [facility] PROTEIN CREAT RATIO URINE 2019-01-01 04:17:00 Alo Moses [facility] SGOT (ASPARTATE AMINO 2019-01-01 04:16:00 Alo Moses [facility] TRANSFER) Medical Branch CREATININE 2019-01-01 04:16:00 Alo Moses [facility] ALANINE AMINO 2019-01-01 04:16:00 Josué [facility] TRANSFERASE(SGPT Medical Branch LACTATE DEHYDROGENASE 2019-01-01 04:16:00 Alo Mosse [facility] URIC ACID 2019-01-01 04:16:00 Alo Moses [place] o [facility] CBC WITH DIFFERENTIAL 2019-01-01 04:16:00 Alo Moses [facility] POCT URINALYSIS 2018-12-31 20:24:00 [facility] URINALYSIS 2018-12-29 01:39:00 Alla Alford [facility] LIPASE 2018-12-29 01:37:00 Alla Alford [facility] MAGNESIUM 2018-12-29 01:37:00 Alla Alford [facility] COMP. METABOLIC PANEL 2018-12-29 01:37:00 Alla Alford [facility] ([id number]) [facility] CBC WITH DIFFERENTIAL 2018-12-29 01:37:00 Alla Alford [facility] PROTHROMBIN TIME / INR 2018-12-29 01:37:00 Alla Alford [facility] N-TERMINAL PRO-BNP 2018-12-29 01:37:00 Alla Alford [facility] NOTICE OF PRIVACY PRACTICES 2018-12-29 00:16:20 Doctor Jessica willis [facility] CONSENT/REFUSAL FOR 2018-12-29 00:16:07 Doctor Dick [facility] DIAGNOSIS AND TREATMENT [facility] POCT URINALYSIS 2018-12-28 18:48:00 [facility] CBC WITH DIFFERENTIAL 2018-12-24 09:13:00 Gilson Upton [facility] CBC WITH DIFFERENTIAL 2018-12-22 15:41:00 Bob La [facility] LAB ON A CART 2018-12-21 20:22:00 Elizabeth Mccray [facility] THROMBELASTOGRAPH CITRATED Medic al Branch KAOLIN W/HEPARIN CBC WITH DIFFERENTIAL 2018-12-21 16:10:00 Maicol Ramírez [facility] VENOUS CORD GAS 2018-12-21 16:07:00 Dl [facility] o f [facility] TRANSFUSE PLATELETS 2018-12-21 15:07:02 Luca [facility] TRANSFUSE PLATELETS 2018-12-21 15:04:33 Luca [facility] SECTION 2018-12-21 14:43:00 [facility] PREPARE PLATELETS 2018-12-21 13:34:52 Luca [facility] PREPARE PLATELETS 2018-12-21 13:34:51 Luca [facility] LAB ON A CART 2018-12-21 13:18:00 Marcela Lujan [facility] THROMBELASTOGRAPH CITRATED Medic [facility] KAOLIN CBC WITH DIFFERENTIAL 2018-12-21 03:45:00 Alison Zamorano [facility] TYPE AND SCREEN 2018-12-21 03:24:00 Antonio Sharma [facility] RHO (D) IMMUNE GLOBULIN 2018-12-21 03:24:00 Gilson Upton [facility] HEPATITIS B SURFACE ANTIGEN 2018-12-21 03:16:00 Alicia Sharma [facility] GALV ONLY - SYPHILIS 2018-12-21 03:16:00 Antonio Sharma [facility] IGG/IGM [facility] NON-STRESS TEST 2018-12-20 16:12:39 Mila Ferguson [facility] POCT URINALYSIS 2018-12-20 15:39:00 [facility] NON-STRESS TEST 2018-12-18 19:31:53 Max Velarde [facility] POCT URINALYSIS 2018-12-18 18:02:00 [facility] NON-STRESS TEST 2018-12-13 19:28:18 Michael Leach [facility] NO SHOW OR MISSED 2018-12-13 18:26:00 Doctor Unassgeorge, [facility] APPOINTMENT POLICY [facility] h ACKNOWLEDGEMENT SECOND AND THIRD TRIMESTER 2018-12-13 18:14:00 Mila Ferguson [facility] ULTRASOUND [facility] NON-STRESS TEST 2018-12-10 16:53:02 Jesse [facility] POCT URINALYSIS 2018-12-10 15:44:00 Allie Miller [facility] NON-STRESS TEST 2018-12-06 21:10:03 Marycruz Quevedo [facility] CBC WITH DIFFERENTIAL 2018-12-06 16:40:00 Marycruz Quevedo [facility] GROUP B STREPTOCOCCUS BY 2018-12-06 16:40:00 Marycruz Quevedo [facility] POCT URINALYSIS 2018-12-06 15:35:00 Allie Miller [facility] CONSENT/REFUSAL FOR 2018-12-03 18:58:48 Doctor Unassigned, [facility] DIAGNOSIS AND TREATMENT [facility] ASSIGNMENT OF BENEFITS 2018-12-03 18:58:36 Doctor Unassigned, [facility] NON-STRESS TEST 2018-11-29 18:37:28 Mila Ferguson [facility] POCT URINALYSIS 2018-11-29 17:59:00 Allie Miller [facility] NON-STRESS TEST 2018-11-26 17:49:39 Inga Moore [facility] POCT URINALYSIS 2018-11-26 15:18:00 Allie Miller [facility] SECOND AND THIRD TRIMESTER 2018-11-22 16:13:00 Mila Ferguson [facility] ULTRASOUND [facility] NON-STRESS TEST 2018-11-22 14:36:42 Rimma Barnard [facility] POCT URINALYSIS 2018-11-22 13:14:00 Allie Miller [facility] CONSENT/REFUSAL FOR 2018-11-19 17:28:50 Doctor Unassigned, [facility] DIAGNOSIS AND TREATMENT [facility] ASSIGNMENT OF BENEFITS 2018-11-19 17:28:38 Doctor Unassigned, [facility] Name [facility] NON-STRESS TEST 2018-11-19 14:56:33 Alison Reis [facility] POCT URINALYSIS 2018-11-19 14:29:00 Allie Miller [facility] NON-STRESS TEST 2018-11-15 20:16:30 Modesto De La Rosa [facility] POCT URINALYSIS 2018-11-15 19:31:00 Allie Miller [facility] NON-STRESS TEST 2018-11-12 17:13:21 Inga Moore [facility] POCT URINALYSIS 2018-11-12 15:55:00 Allie Miller [facility] Encounters Start End Encounter Admission Attending Care Care Encounter Source Date/Time Date/Time Type Type Clinicians Facility Department ID 2020-05-03 Inpatient UR Maria G [facility] [id number] [facility] 03:53:00 Casey [id number] [facility] 2021-05-04 2021-05-05 Inpatient EM Ta [facility].01 [id number] [facility] 01:14:00 14:01:00 Fatemeh 55 [facility] 2021-05-04 2021-05-05 Inpatient EM Ta [facility].01 [id number] [facility] 01:14:00 14:01:00 Fatemeh [id number] [facility] 2021-05-03 2021-05-03 Emergency EM RamírezChelo paredes [facility] [id number] 31-20 [facility] 23:33:00 23:33:00 [id number] [facility] 2021-03-02 2021-03-02 Emergency X [facility] ERT [id number] Univers 22:11:00 [facility] 2020-08[facility]25 2020-08-26 [id number] Memoria 02:37:00 18:00:00 DEBRA tamez 2020-07-06 2020-07-06 Patient Chato, [facility] [id number] Univers 00:00:00 00:00:00 Outreach Bird WANG [id number] i ty of [facility] [place] [id number] [facility] 2019-07-13 2019-07-13 Nurse JARAD Douglas [id number] 00:00:00 00:00:00 Triage Aracelis WOOD [id number]686 [id number] [id number] 2019-07-13 2019-07-13 JARAD Santamaria [id number] 00:00:00 00:00:00 Triage Melinda WOOD [id number]686 [id number] [id number] 2019-07-13 2019-07-13 JARAD Ballesteros [id number] Univers 00:00:00 00:00:00 Triage Aracelis ISRAEL [id number] it y of [facility] 4.2.7.2.686 Eladio as [id number] [address] 2019-07-13 2019-07-13 JARAD Santamaria [id number] Univers 00:00:00 00:00:00 Triage Melinda WOOD [id number] i ty [facility] 4.2.7.2.686 Eladio as [id number] [address] 2018-12-31 2019-01-01 [id number] 21:55:55 14:19:00 Encounter Jesse WOOD 350.1.13.10 [place] 4.2.7.2.686 [id number] 2018-12-31 2019-01-01 [id number] [facility] 21:55:55 14:19:00 Encounter Jesse WOOD [id number] [place] [id number] [address] 2018-12-31 2018-12-31 Nurse Visit, [facility] [id number] 15:10:27 15:53:28 [facility] ADULT REMEDIAL EDUCATION INSTRUCTOR [id number] Nurse [facility] 4.2.7.2.686 MATERNAL [id number] & CHILD [address] [place] [address] 2018-12-31 2018-12-31 [facility] Nurse [facility] 1.2 .840.114 [id number] Univers 15:10:27 15:53:28 Visit Allie Miller ADULT REMEDIAL EDUCATION INSTRUCTOR 350.1.13. 10 ity of [facility] 4.2.7.2.686 Eladio as MATERNAL [id number] [facility] & CHILD [address] [place] [address] 2018-12-31 2018-12-31 Telephone AMANDA Barnard [id number] 00:00:00 00:00:00 Rimma Somers ADULT REMEDIAL EDUCATION INSTRUCTOR 350.1.13.10 [facility] 4.2.7.2.686 MATERNAL [phone] & CHILD [address] [place] [address] 2018-12-31 2018-12-31 Telephone JARAD Upton [id number] 00:00:00 00:00:00 Gilson WOOD 350.1.13.[address]2.686 [id number] [id number] 2018-12-31 2018-12-31 Telephone Roger [facility] [id number] Univers 00:00:00 00:00:00 Rimma Somers ADULT REMEDIAL EDUCATION INSTRUCTOR [id number] it y of [facility] 4.2.7.2.686 Eladio as MATERNAL [id number] [facility] & CHILD [address] [place] [address] 2018-12-31 2018-12-31 Telephone JARAD Upton [id number] Univers 00:00:00 00:00:00 Gilson WOOD 350.1.13.10 i ty of [facility] 4.2.7.2.686 Eladio as [id number] [facility] [address] [place] 2018-12-28 2018-12-29 [facility], [facility] [id number] 19:29:15 00:59:00 Alla Lopez 350.1.13.10 [place] 4.2.7.2.686 [place] [id number] [facility] 2018-12-28 2018-12-29 Emergency [facility] 1.2.171.565 [id number] [facility] 19:29:15 00:59:00 [place]a [place] 350.1.13.10 ity of [place].2.686 [place] [phone] [address] 2018-12-28 2018-12-28 Nurse Visit, [facility] 1.2.840.114 [id number] 12:55:55 13:47:08 [facility] ADULT REMEDIAL EDUCATION INSTRUCTOR 350.1.13.10 Nurse [facility] 4.2.7.2.686 MATERNAL [phone] & CHILD [address] [place] [address] 2018-12-28 2018-12-28 [facility], [facility] Nurse [facility] 1.2 .840.114 [id number] [facility] 12:55:55 13:47:08 Visit Max Velarde ADULT REMEDIAL EDUCATION INSTRUCTOR 350.1.13.10 ity of [facility] 4.2.7.2.686 Eladio as MATERNAL [phone] Med ical & CHILD [address] [place] [address] 2018-12-20 2018-12-24 [facility] JARAD Lizama 1.2.840.114 [id number] 18:42:00 13:40:00 Encounter Ree [place] 350.1.13.10 [place] 4.2.7.2.686 [id number] [facility] 2018-12-20 2018-12-24 [facility] JARAD Lizama 1.2.840.114 [id number] Univers 18:42:00 13:40:00 Encounter Ree [place] 350.1.13.10 ity of [facility] 4.2.7.2.686 [place] [phone] [address] 2018-12-20 2018-12-20 Breakfast Supervisor Ultrasound, [facility] 1.2.840.114 [id number] 11:12:37 11:42:37 Visit Ang-Mfm ADULT REMEDIAL EDUCATION INSTRUCTOR 350.1.13.10 REGIONAL 4.2.7.2.686 MATERNAL [phone] & CHILD [facility] 2018-12-20 2018-12-20 Breakfast Supervisor Ultrasound, AngMacrinaAddie [facility] 1.2 .840.114 [id number] [facility] 11:12:37 11:42:37 Visit Mila Ferguson ADULT REMEDIAL EDUCATION INSTRUCTOR 350.1.13.10 ity of [place] REGIONAL 4.2.7.2.686 [place] MATERNAL [phone] Med ical & CHILD [address] [place] [address] 2018-12-20 2018-12-20 Routine Risk, [facility] 1.2.840.114 [id number] 10:20:16 11:05:03 Ang-Rmchp-N ADULT REMEDIAL EDUCATION INSTRUCTOR 350.1.13.10 Visit p/High REGIONAL 4.2.7.2.686 MATERNAL [phone] & CHILD [address] [facility] 2018-12-20 2018-12-20 Routine Risk, Fjn-Vlsjp-Jv/High [facility] 1. 2.840.114 [id number] Univers 10:20:16 11:05:03 Mila Ferguson ADULT REMEDIAL EDUCATION INSTRUCTOR 350.1.13.10 ity of Visit REGIONAL 4.2.7.2.686 Eladio as MATERNAL [phone] Med ical & CHILD 107 [facility] 2018-12-18 2018-12-18 Routine Velarde, [facility] 1.2.840.114 [id number] 12:50:29 14:00:55 Roshunda R ADULT REMEDIAL EDUCATION INSTRUCTOR 350.1.13.10 Visit REGIONAL 4.2.7.2.686 MATERNAL [phone] & CHILD [facility] 2018-12-18 2018-12-18 Routine Velarde, [facility] 1.2.840.114 [id number] Univers 12:50:29 14:00:55 Roshunda R ADULT REMEDIAL EDUCATION INSTRUCTOR 350.1.13.10 ity of Visit REGIONAL 4.2.7.2.686 Eladio as MATERNAL [phone] [facility] ical & CHILD 107 [facility] 2018-12-13 2018-12-13 Routine Pool, [facility] UNIVERSIT 1.2.840.114 [id number] 13:28:19 14:24:11 Resident [facility] 350.1.13.[address] [facility] 4.2.7.2.686 [id number] 113 2018-12-13 2018-12-13 Routine [place], [facility] Resident UNIVERSIT 1.2.8 40.114 [id number] [facility] 13:28:19 14:24:11 Inga Moore [facility] 350.1. 13.10 ity of [facility] 4.2.7.2.686 [place] Chacorta Clark [phone] [address] 2018-12-13 2018-12-13 Breakfast Supervisor 2, [facility] UNIVERSIT 1.2.840.11 [id number] 12:48:28 13:23:20 Visit [facility] Room Y HEALTH 350.1.13.10 [facility] 4.2.7.2.686 [id number] 104 2018-12-13 2018-12-13 Breakfast Supervisor 2, [facility] Room UNIVERSIT 1 .2.840.114 [id number] [facility] 12:48:28 13:23:20 Visit Inga Moore [facility] 350.1.1 3.10 [facility] 4.2.7.2.686 [place] [phone] [facility] [address] 2018-12-13 2018-12-13 Orders Doctor JARAD 1.2.840.114 [id number] 00:00:00 00:00:00 Only Unassigned, [place] 350.1.13.10 [place] [facility] 4.2.7.2.686 [id number] 009 2018-12-13 2018-12-13 Orders Doctor JARAD 1.2.840.114 [id number] Univers 00:00:00 00:00:00 Only Unassigned, ISRAEL 350.1.13.10 ity of [place] [facility] 4.2.7.2.686 Eladio as [phone] [address] 2018-12-11 2018-12-11 Case JARAD Chris 1.2.840.114 [id number] 00:00:00 00:00:00 Management Ruba [place] 350.1.13.10 HOSPITAL 4.2.7.2.686 [id number] 013 2018-12-11 2018-12-11 Case JARAD Chris 1.2.840.114 [id number] Univers 00:00:00 00:00:00 Management Ruba ISRAEL 350.1.13.10 ity of HOSPITAL 4.2.7.2.686 Eladio as [phone] [address] 2018-12-10 2018-12-10 Routine Faculty, [place] 1.2.840.114 [id number] 10:35:35 11:46:44 Ad Sun[facility] ADULT REMEDIAL EDUCATION INSTRUCTOR 350.1.13.10 Visit [facility] 4.2.7.2.686 MATERNAL [phone] & CHILD 107 [facility] 2018-12-10 2018-12-10 Routine Faculty, Ad [facility] [place] 1.2 .840.114 [id number] [facility] 10:35:35 11:46:44 [place] ADULT REMEDIAL EDUCATION INSTRUCTOR 350.1.13.10 ity of Visit REGIONAL 4.2.7.2.686 Eladio as MATERNAL [phone] Med ical & CHILD 107 [facility] 2018-12-06 2018-12-06 Breakfast Supervisor Ultrasound, [facility] 1.2.840.114 [id number] 11:40:06 12:10:06 [facility] ADULT REMEDIAL EDUCATION INSTRUCTOR 350.1.13.10 REGIONAL 4.2.7.2.686 MATERNAL [phone] & CHILD [address] [facility] 2018-12-06 2018-12-06 Breakfast Supervisor Ultrasound, [facility] 1.2 .840.114 [id number] Univers 11:40:06 12:10:06 Visit Marycruz Quevedo ADULT REMEDIAL EDUCATION INSTRUCTOR 350.1.13.10 ity of REGIONAL 4.2.7.2.686 Eladio as MATERNAL [phone] Med ical & CHILD 369 [facility] 2018-12-06 2018-12-06 Routine Risk, [place] 1.2.840.114 [id number] 10:02:15 11:39:46 Ang-Rmchp-N ADULT REMEDIAL EDUCATION INSTRUCTOR 350.1.13.10 Visit p/High REGIONAL 4.2.7.2.686 MATERNAL [phone] & CHILD 107 [facility] 2018-12-06 2018-12-06 Routine Risk, Ibz-Tgnyp-Ee/High [facility] 1. 2.840.114 [id number] Univers 10:02:15 11:39:46 Marycruz Quevedo ADULT REMEDIAL EDUCATION INSTRUCTOR 350.1.13.10 ity of Visit REGIONAL 4.2.7.2.686 Eladio as MATERNAL [phone] [facility] ical & CHILD [address] [place] [address] 2018-12-03 2018-12-03 [facility] Lorrie Olmos [facility] 1.2.840.114 [id number] 13:57:00 16:45:00 Encounter Cam [place] 350.1.13.10 [place] 4.2.7.2.686 [place] [phone] [facility] 2018-12-03 2018-12-03 [facility] Lorrie Olmos [facility] 1.2.840.114 [id number] [facility] 13:57:00 16:45:00 Encounter Cam [place] 350.1.13.10 ity of [place] 4.2.7.2.686 [place] [phone] [address] 2018-12-03 2018-12-03 Routine Faculty, [facility] 1.2.840.114 [id number] 09:27:42 10:36:46 Ang Rmchp ADULT REMEDIAL EDUCATION INSTRUCTOR 350.1.13.10 Visit [facility] 4.2.7.2.686 MATERNAL [phone] & CHILD 107 [facility] 2018-12-03 2018-12-03 Routine Faculty, Ang Rmchp [facility] 1.2 .840.114 [id number] [facility] 09:27:42 10:36:46 Kyle Cordero ADULT REMEDIAL EDUCATION INSTRUCTOR 350.1.13. 10 ity of Visit REGIONAL 4.2.7.2.686 Eladio as MATERNAL [phone] Med ical & CHILD 107 [facility] 2018-11-29 2018-11-29 Routine Risk, [facility] 1.2.840.114 [id number] 12:45:37 13:38:16 Ang-Rmchp-N ADULT REMEDIAL EDUCATION INSTRUCTOR 350.1.13.10 Visit p/High REGIONAL 4.2.7.2.686 MATERNAL [phone] & CHILD [address] [place] [address] 2018-11-29 2018-11-29 Routine Risk, Ico-Ixqmf-Ay/High [facility] 1. 2.840.114 [id number] [facility] 12:45:37 13:38:16 PhyllisMila ADULT REMEDIAL EDUCATION INSTRUCTOR 350.1.13.10 ity of Visit REGIONAL 4.2.7.2.686 Eladio as MATERNAL [phone] [facility] ical & CHILD [address] [place] [address] 2018-11-29 2018-11-29 Breakfast Supervisor Ultrasound, [facility] 1.2 .840.114 [id number] Univers 11:09:01 11:48:17 Visit Calvin Patel ADULT REMEDIAL EDUCATION INSTRUCTOR 350.1.13.10 ity of [facility] 4.2.7.2.686 Eladio as MATERNAL [phone] [facility] ical & CHILD 369 [facility] 2018-11-26 2018-11-26 Routine Faculty, Ad Samson [facility] 1.2 .840.114 [id number] Univers 10:07:03 11:06:11 TeresaInga somersadette ADULT REMEDIAL EDUCATION INSTRUCTOR 350.1.1 3.10 ity of Visit REGIONAL 4.2.7.2.686 Eladio as MATERNAL [phone] [facility] ical & CHILD [address] [place] [address] 2018-11-22 2018-11-22 Breakfast Supervisor 5, [facility] Room UNIVERSIT 1 .2.840.114 [id number] Univers 10:44:00 11:48:35 Visit Inga Moore [facility] 350.1.1 3.10 [address]y [address] Alison Reis [facility] 4.2.7.2.686 [place] [phone] [facility] [address] 2018-11-22 2018-11-22 Routine Roger, [facility] 1.2.526.359 [id number] Univers 08:04:45 09:05:49 Rimma Somers ADULT REMEDIAL EDUCATION INSTRUCTOR 350.1.13.10 i ty of Visit REGIONAL 4.2.7.2.686 Eladio as MATERNAL [phone] Med ical & CHILD 107 [facility] 2018-11-19 2018-11-19 Hospital Lorrie Olmos [place] 1.2.840.114 [id number] Univers 12:24:36 16:05:00 Encounter Damien [place] 350.1.13.10 ity of [place] 4.2.7.2.686 [place] [id number] [place] [address] [place] 2018-11-19 2018-11-19 Routine Faculty, Ad [facility] 1.2 .840.114 [id number] [facility] 09:18:45 10:07:14 Alison Reis ADULT REMEDIAL EDUCATION INSTRUCTOR 350.1.13.10 ity of Visit [facility] 4.2.7.2.686 Eladio as MATERNAL [phone] [facility] ical & CHILD [address] [place] [address] 2018-11-15 2018-11-15 Routine Faculty, Ad [facility] 1.2 .840.114 [id number] Univers 13:56:25 15:11:31 Modesto De La Rosa ADULT REMEDIAL EDUCATION INSTRUCTOR 350.1.13.10 ity of Visit REGIONAL 4.2.7.2.686 Eladio as MATERNAL [phone] [facility] ical & CHILD 107 [facility] 2018-11-14 2018-11-14 Breakfast Supervisor [facility] 1.2 .840.114 [id number] Univers 10:38:34 11:32:09 Visit Alison Reis ADULT REMEDIAL EDUCATION INSTRUCTOR 350.1.13.10 ity of REGIONAL 4.2.7.2.686 Eladio as MATERNAL [phone] Med ical & CHILD 369 [facility] 2018-11-12 2018-11-12 Routine Faculty, [facility] 1.2 .840.114 [id number] Univers 10:38:07 12:09:10 Teresa Inga BalderasRicarda ADULT REMEDIAL EDUCATION INSTRUCTOR 350.1.1 3.10 ity of Visit REGIONAL 4.2.7.2.686 Eladio as MATERNAL [phone] Med ical & CHILD 107 [facility] 2018-11-01 2018-11-01 Case LITTLE Woodall 1.2.592.527 [id number] [facility] 00:00:00 00:00:00 Management Vidhi CALVILLO 350.1.13.10 ity of CLINICS 4.2.7.2.686 Noé delgado [phone] [facility] [address] Results Test Description Test Time Test Comments Results Result Comments Source CBC W/AUTO DIFF 2021-05-05 08:31:00 Test Item Value Reference Range Interpretation Comme nts WHITE BLOOD CELL (test code = 8.0 K/mm3 6.5-12.3 Results verified by repeat WBC) analysis RED BLOOD CELL (test code = RBC) 3.14 M/mm3 3.51-4.69 L HEMOGLOBIN (test code = HGB) 8.5 g/dL 10.1-13.8 L HEMATOCRIT (test code = HCT) 26.9 % 32.5-41.8 L MEAN CELL VOLUME (test code = 85.7 fL 84.6-96.6 N MCV) MEAN CELL HGB (test code = MCH) 27.1 pg 27.3-33.9 L MEAN CELL HGB CONCETRATION (test 31.6 gm/dL 32.0-34.2 L code = MCHC) RED CELL DISTRIBUTION WIDTH (test 16.0 % 12.2-16.3 N code = RDW) PLATELET COUNT (test code = PLT) 101 K/mm3 134-363 L MEAN PLATELET VOLUME (test code = 12.0 fL 9.2-12.7 N MPV) NEUTROPHIL % (test code = NT%) 90.2 % 57.9-77.3 H LYMPHOCYTE % (test code = LY%) 6.6 % 14.5-29.7 L MONOCYTE % (test code = MO%) 2.5 % 3.6-10.2 L EOSINOPHIL % (test code = EO%) 0.0 % 0.0-3.0 N BASOPHIL % (test code = BA%) 0.1 % 0.1-0.9 N NEUTROPHIL # (test code = NT#) 7.3 K/mm3 LYMPHOCYTE # (test code = LY#) 0.5 K/mm3 MONOCYTE # (test code = MO#) 0.2 K/mm3 EOSINOPHIL # (test code = EO#) 0 K/mm3 BASOPHIL # (test code = BA#) 0.0 K/mm3 RBC MORPHOLOGY REQUIRED (test NORMAL NORMAL code = RBCM) PLATELET MORPHOLOGY REQUIRED NORMAL NORMAL (test code = PLTMR) CBC W/AUTO [id number] 13:59:00 Test Item Value Reference Range Interpretation Comments WHITE BLOOD CELL (test 4.4 K/mm3 6.5-12.3 L code = WBC) RED BLOOD CELL (test 3.63 M/mm3 3.51-4.69 N code = RBC) HEMOGLOBIN (test code = 9.6 g/dL 10.1-13.8 L Re sults verified HGB) by repeat mindi sis HEMATOCRIT (test code = 31.6 % 32.5-41.8 L Re sults verified HCT) by repeat imndi sis MEAN CELL VOLUME (test 87.1 fL 84.6-96.6 N code = MCV) MEAN CELL HGB (test code 26.4 pg 27.3-33.9 L = MCH) MEAN CELL HGB 30.4 gm/dL 32.0-34.2 L CONCETRATION (test code = MCHC) RED CELL DISTRIBUTION 15.6 % 12.2-16.3 N WIDTH (test code = RDW) PLATELET COUNT (test 82 K/mm3 134-363 LL RESU LTS CALLED code = PLT) TO NIKOLAS STEVE.READ JED K & CONFIRMED? Y.BY [id number] IMMATURE PLATELET 6.0 % 0.0-10.8 N FRACTION (test code = IPF) MEAN PLATELET VOLUME 10.9 fL 9.2-12.7 N (test code = MPV) NEUTROPHIL % (test code 86.6 % 57.9-77.3 H = NT%) LYMPHOCYTE % (test code 10.2 % 14.5-29.7 L = LY%) MONOCYTE % (test code = 0.7 % 3.6-10.2 L MO%) EOSINOPHIL % (test code 1.6 % 0.0-3.0 N = EO%) BASOPHIL % (test code = 0.2 % 0.1-0.9 N BA%) NEUTROPHIL # (test code 3.8 K/mm3 = NT#) LYMPHOCYTE # (test code 0.5 K/mm3 = LY#) MONOCYTE # (test code = 0.0 K/mm3 MO#) EOSINOPHIL # (test code 0.07 K/mm3 = EO#) BASOPHIL # (test code = 0.0 K/mm3 BA#) RBC MORPHOLOGY REQUIRED NORMAL NORMAL (test code = RBCM) PLATELET MORPHOLOGY NORMAL NORMAL REQUIRED (test code = PLTMR) CBC W/AUTO [id number] 00:52:00 Test Item Value Reference Range Interpretation Comments WHITE BLOOD CELL (test 6.5 K/mm3 6.5-12.3 N code = WBC) RED BLOOD CELL (test 2.45 M/mm3 3.51-4.69 L code = RBC) HEMOGLOBIN (test code = 6.4 g/dL 10.1-13.8 LL RESU LTS CALLED TO HGB) CLIFFORD VILLAGOMEZ AD BACK & CONFIRME D? YBY [id number] 05/04/21 0025 HEMATOCRIT (test code = 21.5 % 32.5-41.8 L HCT) MEAN CELL VOLUME (test 87.8 fL 84.6-96.6 N code = MCV) MEAN CELL HGB (test 26.1 pg 27.3-33.9 L code = MCH) MEAN CELL HGB 29.8 gm/dL 32.0-34.2 L CONCETRATION (test code = MCHC) RED CELL DISTRIBUTION 16.2 % 12.2-16.3 N WIDTH (test code = RDW) PLATELET COUNT (test 112 K/mm3 134-363 L code = PLT) MEAN PLATELET VOLUME 11.8 fL 9.2-12.7 N (test code = MPV) NEUTROPHIL % (test code 71.3 % 57.9-77.3 N = NT%) LYMPHOCYTE % (test code 17.2 % 14.5-29.7 N = LY%) MONOCYTE % (test code = 9.5 % 3.6-10.2 N MO%) EOSINOPHIL % (test code 1.4 % 0.0-3.0 N = EO%) BASOPHIL % (test code = 0.3 % 0.1-0.9 N BA%) NEUTROPHIL # (test code 4.7 K/mm3 = NT#) LYMPHOCYTE # (test code 1.1 K/mm3 = LY#) MONOCYTE # (test code = 0.6 K/mm3 MO#) EOSINOPHIL # (test code 0.09 K/mm3 = EO#) BASOPHIL # (test code = 0.0 K/mm3 BA#) RBC MORPHOLOGY REQUIRED NORMAL NORMAL (test code = RBCM) PLATELET MORPHOLOGY NORMAL NORMAL REQUIRED (test code = PLTMR) COMPREHENSIVE METABOLIC [id number] 00:38:00 Test Item Value Reference Range Interpretation Comments SODIUM (test code = NA) 137 mEq/L 135-145 N POTASSIUM (test code = K) 4.1 mEq/L 3.5-5.0 N CHLORIDE (test code = CL) 102 mEq/L 100-115 N CARBON DIOXIDE (test code = CO2) 27 mEq/L 22-31 N ANION GAP (test code = GAP) 12.00 10-20 N GLUCOSE (test code = GLU) 94 mg/dL 65-110 N BLOOD UREA NITROGEN (test code = 6 mg/dL 7-18 L BUN) GLOMERULAR FILTRATION RATE (test 113 ml/min >60 N code = GFR) CREATININE (test code = CREAT) 0.6 mg/dL 0.5-1.0 N TOTAL PROTEIN (test code = PROT) 6.7 gm/dL 6.3-8.2 N ALBUMIN (test code = ALB) 3.3 gm/dL 3.4-4.8 L CALCIUM (test code = CA) 7.5 mg/dL 8.4-10.2 L BILIRUBIN TOTAL (test code = BILT) 0.4 mg/dL 0.2-1.0 N SGOT/AST (test code = AST) 14 units/L 15-37 L SGPT/ALT (test code = ALT) 22 units/L 12-78 N ALKALINE PHOSPHATASE TOTAL (test 60 units/L 46-116 N code = ALKP) PROTHROMBIN [id number] 00:35:00 Test Item Value Reference Range Interpretation Comments PROTHROMBIN TIME PATIENT (test code 13.6 secs 10.1-12.3 H = PTP) THROMBOPLASTIN TIME [id number] 00:35:00 Test Item Value Reference Range Interpretation Comments THROMBOPLASTIN TIME PARTIAL (test 30.6 secs 22-38 N code = PTT) - DUP AB/PEL/SC/[id number] 00:00:00 [facility] THE Name: BRI CAMPBELL : 1985 Sex: F Patient Name: BRI CAMPBELL Unit No: [id number] EXAMS: CPT CODE: [id number] DUP AB/PEL/SC/LTD 73021 PROCEDURE INFORMATION: Exam: US Pelvis Complete (Transabdominal), Pelvis (Transvaginal), and US Duplex Artery or Vein (Ovaries) Limited Exam date and time: 05/04/2021 12:15 AM Age: 35 years old Clinical indication: Abdominal or pelvic symptoms: H/o ruptured ov cyst abd pain; Prior surgery; Surgery type: C/s TECHNIQUE: Imaging protocol: Real- time transabdominal and transvaginal pelvic ultrasound (complete) with image documentation. Transvaginal imaging was used for better evaluation of the endometrium, adnexa, and/or cervix. Real-time duplex ultrasound scan of the arterial or venous flow of the ovaries with B-mode, color Doppler flow and spectral waveform analysis. Complete Pelvis, Limited Duplex. COMPARISON: US PELVIC, US PELVIC 05/03/2020 1:15 AM FINDINGS: Uterus: On the transabdominal exam, the uterus measures 9.5 x 5.4 x 4.7 cm. Endometrial stripe is not well visualized. On the endovaginal exam, the uterus measures 10.2 x 4.5 x 5.8 cm. Endometrial stripe measures 6 mm. No uterine fibroid is present. Right ovary/adnexa: The right ovary measures 5.2 x 3.6 x 3.5 cm on endovaginal exam. Thick-walled cyst within the right ovary measures 2.5 x 3.4 x 2.7 cm. Complex free fluid in the right adnexa measures 10.0cm. Left ovary/adnexa: Left ovary measures 2.8 x 2.0 x 2.3 cm on endovaginal exam. There is dilatation of the left fallopian tube. Complex free fluid in the left adnexa measures 4.0 cm. Intraperitoneal space: Hemoperitoneum. Urinary bladder: Visualized bladder is unremarkable. Vasculature:There is normal flow to both ovaries. No evidence for ovarian torsion is present. Other findin gs: 3.1 cm lesion within the right hepatic lobe is incidentally noted. IMPRESSION: 1. Hemoperitoneum in pelvis, right greater than left. 2. Thick-walled right ovarian cyst, possibly hemorrhagic cyst or recently ruptured follicle. 3. No ovarian torsion bilaterally. 4. 3.1 cm lesion within the liver, incompletely evaluated. 5. Unremarkable uterus. at 0121 Reported and signed by: Reza Alexandre MD [facility] [place] [facility] NAME: BRI CAMPBELL Radiology Department PHYS: LASHELLJEREMY. Chelo Ramírez MD [address] : 1985 AGE: 35 SEX: F [place] [address] LOC: Maya.ERS PHONE #: [phone] EXAM DATE: 05/04/2021 STATUS: REG ER FAX #: [phone] RAD NO: Page 1 Signed Report (CONTINUED) Patient Name: BRI CAMPBELL Unit No: [id number] EXAMS: CPT CODE: [id number] DUP AB/PEL/SC/LTD 58181 <Continued> CC: Cehlo Ramírez MD Technologist: Griselda Streeter RDMS Probe: Trnscrbd D/ (0121) GCD.CPS Orig Print D/T: S: 05/04/2021 (0124) [facility] NAME: BRI CAMPBELL Radiology Department PHYS: Chelo Ramírez MD [address] : 1985 AGE: 35 SEX: F [place] [address] LOC: Maya.ERS PHONE #: [phone] EXAM DATE: 05/04/2021 STATUS: REG ER FAX #: [phone] RAD NO: Page 2 Signed Report Patient Name: BRI CAMPBELL Unit No: [id number]: CPT CODE: [id number] DUP AB/PEL/SC/LTD 29427 <Continued> [facility] NAME: BRI CAMPBELL Radiology Department PHYS: Chelo Ramírez MD [address] : 1985 AGE: 35 SEX: F [place], [place] [address] LOC: JOSSUE PHONE #: [phone] EXAM DATE: 05/04/2021 STATUS: REG ER FAX #: [phone] RAD NO: Page 3 Signed Report- US PELVIS [id number] 00:00:00 [facility] THE Name: BRI CAMPBELL : 1985 Sex: F Patient Name: BRI CAMPBELL Unit No: [id number] EXAMS: CPT CODE: [id number] US PELVIS COMPLETE [id number] PROCEDURE INFORMATION: Exam: US Pelvis Complete (Transabdominal), Pelvis (Transvaginal), and US Duplex Artery or Vein (Ovaries) Limited Exam date and time: 05/04/2021 12:15 AM Age: 35 years old Clinical indication: Abdominal or pelvic symptoms: H/o ruptured ov cyst abd pain; Prior surgery; Surgery type: C/s TECHNIQUE: Imaging protocol: Real- time transabdominal and transvaginal pelvic ultrasound (complete) with image documentation. Transvaginal imaging was used for better evaluation of the endometrium, adnexa, and/or cervix. Real-time duplex ultrasound scan of the arterial or venous flow of the ovaries with B-mode, color Doppler flow and spectral waveform analysis. Complete Pelvis, Limited Duplex. COMPARISON: US PELVIC, US PELVIC 05/03/2020 1:15 AM FINDINGS: Uterus: On the transabdominal exam, the uterus measures 9.5 x 5.4 x 4.7 cm. Endometrial stripe is not well visualized. On the endovaginal exam, the uterus measures 10.2 x 4.5 x 5.8 cm. Endometrial stripe measures 6 mm. No uterine fibroid is present. Right ovary/adnexa: The right ovary measures 5.2 x 3.6 x 3.5 cm on endovaginal exam. Thick-walled cyst within the right ovary measures 2.5 x 3.4 x 2.7 cm. Complex free fluid in the right adnexa measures 10.0cm. Left ovary/adnexa: Left ovary measures 2.8 x 2.0 x 2.3 cm on endovaginal exam. There is dilatation of the left fallopian tube. Complex free fluid in the left adnexa measures 4.0 cm. Intraperitoneal space: Hemoperitoneum. Urinary bladder: Visualized bladder is unremarkable. Vasculature:There is normal flow to both ovaries. No evidence for ovarian torsion is present. Other findin gs: 3.1 cm lesion within the right hepatic lobe is incidentally noted. IMPRESSION: 1. Hemoperitoneum in pelvis, right greater than left. 2. Thick-walled right ovarian cyst, possibly hemorrhagic cyst or recently ruptured follicle. 3. No ovarian torsion bilaterally. 4. 3.1 cm lesion within the liver, incompletely evaluated. 5. Unremarkable uterus. at 0121 Reported and signed by: Reza Alexandre MD [facility] NAME: BRI CAMPBELL Radiology Department PHYS: DEMIAN. Chelo Ramírez MD [address] : 1985 AGE: 35 SEX: F [place], [place] [address] LOC: JOSSUE PHONE #: [phone] EXAM DATE: 05/04/2021 STATUS: REG ER FAX #: [phone] RAD NO: Page 1 Signed Report (CONTINUED) Patient Name: CAMPBELLBRI Unit No: [id number] EXAMS: CPT CODE: [id number] US PELVIS COMPLETE [id number] <Continued> CC: Chelo Ramírez MD Technologist: Griselda Streeter RDMS Probe: Trnscrbd D/ (0121) GCD.CPS Orig Print D/T: S: 05/04/2021 (0121) [facility] NAME: BRI CAMPBELL Radiology Department PHYS: Chelo Ramírez MD [address] : 1985 AGE: 35 SEX: F [place] [address] LOC: F.ERS PHONE #: [phone] EXAM DATE: 05/04/2021 STATUS: REG ER FAX #: [phone] RAD NO: Page 2 Signed Report Patient Name: BRI CAMPBELL Unit No: [id number]: CPT CODE: [id number] US PELVIS COMPLETE [id number] <Continued> [facility] NAME: BRI CAMPBELL Radiology Department PHYS: LASHELL Chelo Ramírez MD [address] : 1985 AGE: 35 SEX: F [place] [address] LOC: F.ERS PHONE #: [phone] EXAM DATE: 05/04/2021 STATUS: REG ER FAX #: [phone] RAD NO: Page 3 Signed Report- US TRANSVAGINAL [id number] 00:00:00 [facility] : 1985 Sex: F Patient Name: BRI CAMPBELL Unit No: [id number] EXAMS: CPT CODE: [id number] US TRANSVAGINAL W/PELVIS [id number] PROCEDURE INFORMATION: Exam: US Pelvis Complete (Transabdominal), Pelvis (Transvaginal), and US Duplex Artery or Vein (Ovaries) Limited Exam date and time: 05/04/2021 12:15 AM Age: 35 years old Clinical indication: Abdominal or pelvic symptoms: H/o ruptured ov cyst abd pain; Prior surgery; Surgery type: C/s TECHNIQUE: Imaging protocol: Real-time transabdominal and transvaginal pelvic ultrasound (complete) with image documentation. Transvaginal imaging was used for better evaluation of the endometrium, adnexa, and/or cervix. Real-time duplex ultrasound scan of the arterial or venous flow of the ovaries with B-mode, color Doppler flow and spectral waveform analysis. Complete Pelvis, Limited Duplex. COMPARISON: US PELVIC, US PELVIC 05/03/2020 1:15 AM FINDINGS: Uterus: On the transabdominal exam, the uterus measures 9.5 x 5.4 x 4.7 cm. Endometrial stripe is not well visualized. On the endovaginal exam, the uterus measures 10.2 x 4.5 x 5.8 cm. Endometrial stripe measures 6 mm. No uterine fibroid is present. Right ovary/adnexa: The right ovary measures 5.2 x 3.6 x 3.5 cm on endovaginal exam. Thick-walled cyst within the right ovary measures 2.5 x 3.4 x 2.7 cm. Complex free fluid in the right adnexa measures 10.0cm. Left ovary/adnexa: Left ovary measures 2.8 x 2.0 x 2.3 cm on endovaginal exam. There is dilatation of the left fallopian tube. Complex free fluid in the left adnexa measures 4.0 cm. Intraperitoneal space: Hemoperitoneum. Urinary bladder: Visualized bladder is unremarkable. Vasculature:There is normal flow to both ovaries. No evidence for ovarian torsion is present. Other findin gs: 3.1 cm lesion within the right hepatic lobe is incidentally noted. IMPRESSION: 1. Hemoperitoneum in pelvis, right greater than left. 2. Thick-walled right ovarian cyst, possibly hemorrhagic cyst or recently ruptured follicle. 3. No ovarian torsion bilaterally. 4. 3.1 cm lesion within the liver, incompletely evaluated. 5. Unremarkable uterus. at 0121 Reported and signed by: Reza Alexandre MD [facility] NAME: BRI CAMPBELL Radiology Department PHYS: [facility] Cheol Ramírez MD [address] : 1985 AGE: 35 SEX: F [place] [address] LOC: F.ERS PHONE #: [phone] EXAM DATE: 05/04/2021 STATUS: REG ER FAX #: [phone] RAD NO: Page 1 Signed Report (CONTINUED) Patient Name: BRI CAMPBELL Unit No: [id number] EXAMS: CPT CODE: [id number] US TRANSVAGINAL W/PELVIS 40122 <Continued> CC: Chelo Ramírez MD Technologist: Griselda Streeter RDMS Probe: [id number] Trnscrbd D/ (012) GCD.CPS Orig Print D/T: S: 05/04/2021 (0122) [facility] NAME: BRI CAMPBELL Radiology Department PHYS: DEMIAN Chelo Ramírez MD [address] : 1985 AGE: 35 SEX: F [place] [address] LOC: Maya.ERS PHONE #: [phone] EXAM DATE: 05/04/2021 STATUS: REG ER FAX #: [phone] RAD NO: Page 2 Signed Report Patient Name: BRI CAMPBELL Unit No: [id number]: CPT CODE: [id number] US TRANSVAGINAL W/PELVIS 23403 <Continued> [facility] NAME: BRI CAMPBELL [facility] Radiology Department PHYS: JEREMY Chelo Ramírez MD [address] : 11/1985 AGE: 35 SEX: F [place], [place] [address] LOC: JOSSUE PHONE #: [phone] EXAM DATE: 05/04/2021 STATUS: REG ER FAX #: [phone] RAD NO: Page 3 Signed Report- DUP VEIN [id number] 08:04:00 [facility] Name: BRI CAMPBELL : 1985 Sex: F Patient Name: BRI CAMPBELL Unit No: [id number] EXAMS: CPT CODE: [id number] DUP VEIN SAMANTHA [address]697 BILATERAL LOWER EXTREMITY DUPLEX VENOUS DOPPLER ULTRASOUND, 05/04/2020 COMPARISON: None CLINICAL HISTORY: LEG PAIN FINDINGS: Examination is limited due topatient's restlessness leg syndrome and back pain. Insofar as visualized, there is normal deepvenous compressibility and Doppler flow in the veins to the level of the knees. Assessment of thedeep veins below the level of the knees was very limited. IMPRESSION: No sonographic evaluation of deep venous thrombosis is seen in the thighs. Please see above comments. at 0804 Reported and signed by:Ramiro Lizama MD CC: Magdalena Ferro Technologist: LILLI MCGOWAN RDMS, RVT Probe: Trnscrbd D/ (0804) RajivAJ13 Orig Print D/T: S: 05/04/2020 (0807) [facility] NAME: BRI CAMPBELL Radiology Department PHYS: Magdalena Borrego MD [address] : 1985 AGE: 34 SEX: F [place] [address] LOC: ROMAIN Saunders PHONE #: [phone] EXAM DATE: 05/04/2020 STATUS: ADM IN FAX #: [phone] RAD NO: Page 1 Signed Report Patient Name: BRI CAMPBELL Unit No: [id number] EXAMS: CPT CODE: [id number] DUP VEIN SAMANTHA [address] <Continued> [facility] NAME: BRI CAMPBELL Radiology Department PHYS: Magdalena Borrego MD [address] : 1985 AGE: 34 SEX: F [place], [place] [address] LOC: TANGELA4 A PHONE #: [phone] EXAM DATE: 05/04/2020 STATUS: ADM IN FAX #: [phone] RAD NO: Page 2 Signed ReportCBC W/AUTO [id number] 04:57:00 Test Item Value Reference Range Interpretation [...] PLT) READ JED K & CONFIRMED? Y.BY JAD 0456Results verified by rep eat analysis IMMATURE PLATELET 8.4 % 0.0-10.8 N FRACTION (test code = IPF) MEAN PLATELET VOLUME 12.9 fl 9.1-12.7 H (test code = MPV) MANUAL DIFF REQUIRED YES (test code = MDIFF) RBC MORPHOLOGY REQUIRED NORMAL NORMAL (test code = RBCM) PLATELET MORPHOLOGY ABNORMAL NORMAL REQUIRED (test code = PLTMR) WBC [id number] 04:57:00 Test Item Value Reference Range Interpretation [...] NORMAL A code = PLTMORPH) CBC W/AUTO [id number] 04:56:00 Test Item Value Reference Range Interpretation [...] RESULT S CALLED TO code = PLT) ROSARIO JED K & CONFIRMED? Y.BY JAD 0456Results verified by rep eat analysis IMMATURE PLATELET 8.4 % 0.0-10.8 N FRACTION (test code = IPF) MEAN PLATELET VOLUME 12.9 fl 9.1-12.7 H (test code = MPV) MANUAL DIFF REQUIRED YES (test code = MDIFF) RBC MORPHOLOGY REQUIRED NORMAL NORMAL (test code = RBCM) PLATELET MORPHOLOGY ABNORMAL NORMAL REQUIRED (test code = PLTMR) WBC [id number] 04:56:00 Test Item Value Reference Range Interpretation Comments SEGMENTED NEUTROPHILS (test code = SEG) % 56.5-79.4 LYMPHOCYTE (test code = LYMPH) % 20-40 CBC W/AUTO [id number] 04:56:00 Test Item Value Reference Range Interpretation [...] S CALLED TO code = PLT) READ EJD K & CONFIRMED? Y.BY JAD 0456Results verified by rep eat analysis IMMATURE PLATELET 8.4 % 0.0-10.8 N FRACTION (test code = IPF) MEAN PLATELET VOLUME 12.9 fl 9.1-12.7 H (test code = MPV) MANUAL DIFF REQUIRED YES (test code = MDIFF) RBC MORPHOLOGY REQUIRED NORMAL NORMAL (test code = RBCM) PLATELET MORPHOLOGY ABNORMAL NORMAL REQUIRED (test code = PLTMR) WBC [id number] 04:56:00 Test Item Value Reference Range Interpretation Comments SEGMENTED NEUTROPHILS (test code = SEG) % 56.5-79.4 LYMPHOCYTE (test code = LYMPH) % 20-40 COMPREHENSIVE METABOLIC [id number] 04:39:00 Test Item Value Reference Range Interpretation [...] 46-116 N code = ALKP) CBC W/AUTO [id number] 19:13:00 Test Item Value Reference Range Interpretation Comments WHITE BLOOD CELL 5.9 K/mm3 6.6-12.1 L (test code = WBC) RED BLOOD CELL (test 2.60 M/mm3 3.45-5.01 L code = RBC) HEMOGLOBIN (test 6.9 g/dL 10.7-13.9 L RESULTS FERMIN IFIED BY code = HGB) REPEAT ANALYSIS RESULTS CALLED TO GIANNA VERDUGOREAD BACK & CONFIRME D? Y.BY F.LAB.[facility]. HEMATOCRIT (test 22.1 % 32.1-42.1 L [...] PLT) SUREKHA.READ BA CK & CONFIRMED? [facility] IMMATURE PLATELET 6.4 % 0.0-10.8 N [...] REQUIRED (test code PRESENT = PLTMR) LACTIC [id number] 19:05:00 Test Item Value Reference Range Interpretation Comments LACTIC ACID (test 4.5 MMOL/L 0.5-2.2 HH RESULTS CA LLED TO code = LACT) READ BACK & CONFIRMED? YES. BY GlenASLuis 04/17. COMPREHENSIVE METABOLIC [id number] 19:01:00 Test Item Value Reference Range Interpretation [...] 60 units/L 46-116 code = ALKP) PROTHROMBIN [id number] 19:01:00 Test Item Value Reference Range Interpretation Comments PROTHROMBIN TIME PATIENT (test code 13.3 secs 10.4-12.4 H = PTP) THROMBOPLASTIN TIME [id number] 19:01:00 Test Item Value Reference Range Interpretation Comments THROMBOPLASTIN TIME PARTIAL (test 20.6 secs 22-38 L code = PTT) [id number] 19:01:00 Test Item Value Reference Range Interpretation Comments FIBRINOGEN (test code = FIB) 141 mg/dL 309-518 L UA RFLX MICR CULT IF [id number] 12:47:00 Test Item Value Reference Range Interpretation [...] RiskForSepsis-no oth srcSpecimen Description: CLEAN CATCHUR HCG [id number] 12:47:00 Test Item Value Reference Range Interpretation [...] Description: CLEAN CATCHUA RFLX MICR CULT IF [id number] 12:36:00 Test Item Value Reference Range Interpretation [...] RiskForSepsis-no oth srcSpecimen Description: CLEAN CATCHUR HCG [id number] 12:36:00 Test Item Value Reference Range Interpretation [...] culture: RiskForSepsis-no oth srcSpecimen Description: CLEAN CATCHPROTHROMBIN [id number] 10:14:00 Test Item Value Reference Range Interpretation Comments PROTHROMBIN TIME PATIENT (test code 13.3 secs 10.4-12.4 H = PTP) THROMBOPLASTIN TIME [id number] 10:14:00 Test Item Value Reference Range Interpretation Comments THROMBOPLASTIN TIME PARTIAL (test 19.4 secs 22-38 L code = PTT) [id number] 10:14:00 Test Item Value Reference Range Interpretation Comments FIBRINOGEN (test code = FIB) 102 mg/dL 309-518 L COMPREHENSIVE METABOLIC [id number] 09:54:00 Test Item Value Reference Range Interpretation [...] units/L 46-116 N code = ALKP) HGB [id number] 06:49:00 Test Item Value Reference Range Interpretation Comments HEMOGLOBIN (test code = 4.5 g/dL 10.7-13.9 LL RESU LTS CALLED TO HGB) DAY.READ BACK & CONFIRMED? YES. BY F.LAB.IR1 05/03 0649.Results ve rified by repeat mindi sis HEMATOCRIT (test code = 16.2 % 32.1-42.1 LL RESU LTS CALLED TO HCT) DAY.READ BACK & CONFIRMED? YES. BY F.LAB.IR1 05/0349.Results ve rified by repeat mindi sis US [...] venous thrombosis in the bilateral lower extremity. Amos Luther MD., have reviewed this study and agree with the abovereport.[facility] CenterProtein CREAT Ratio Urine [id number] 06:35:00 Test Item Value Reference Range Interpretation Comments T. PROT U (test code = 2888-6) 11 mg/dL CREAT U (test code = 2088469782) 153.3 mg/dL Protein/Creatinine Ratio Urine 0.0-2.0 (test code = 9169165963) [facility] CenterUric Acid [id number] 05:37:00 Test Item Value Reference Range Interpretation Comments URIC ACID (test code = 7669866923) 8.2 mg/dL 2.9-6 H Lab Interpretation (test code = Abnormal 85216-4) [facility] CenterAlanine Amino Transferase (SGPT)2019-01-01 05:37:00 Test Item Value Reference Range Interpretation Comments ALT(SGPT) (test code = 3734171365) 21 U/L 9-51 Lab Interpretation (test code = Normal 16507-4) [facility] CenterLactate [id number] 05:37:00 Test Item Value Reference Range Interpretation Comments LDH (test code = 4392617042) 781 U/L 300-600 H Lab Interpretation (test code = Abnormal 03428-4) [facility] CenterSerum [id number] 05:25:00 Test Item Value Reference Range Interpretation Comments CREATININE (test code 0.62 mg/dL 0.5-1.04 = 6666547957) eGFR Calculation mL/min/1.73m2 (Non-) (test code = 6355994961) eGFR Calculation mL/min/1.73m2 () (test code = 9951168211) MICKY (test code = MICKY) Association of [...] or urine or abnormalities in imaging tests). [facility] CenterSGOT (Asparate Amino Transfer)2019-01-01 05:25:00 Test Item Value Reference Range Interpretation Comments AST(SGOT) (test code = 4793908027) 30 U/L 13-40 Lab Interpretation (test code = Normal 61002-4) [facility] CenterUrinalysis2019-09-17 04:46:00 Test Item Value Reference Range Interpretation Comments APPEARANCE (test code = Clear Clear 7190328675) COLOR (test code = Yellow Yellow 8909399147) PH (test code = 4.8-8.0 2515775757) SP GRAVITY (test code = 1.003-1.030 7750313599) GLU U QUAL (test code = Normal Normal 4658184668) BLOOD (test code = Negative Negative 9891117220) KETONES (test code = Negative Negative 0706572703) PROTEIN (test code = Negative Negative 2887-8) UROBILIN (test code = Normal Normal 1344952567) BILIRUBIN (test code = Negative Negative 6694443210) NITRITE (test code = Negative Negative 7245057045) LEUK MISBAH (test code = Negative Negative 6531290460) RBC/HPF (test code = See_Comment [Autom ated message] 5464438524) The system [employer] generated this result transmitted ref erence range: 0 - 3 HP F. The reference range was not used to int erpret this result as normal/abnormal . WBC/HPF (test code = See_Comment [Autom ated message] 1346054521) The system [employer] generated this result transmitted ref erence range: 0 - 5 HP F. The reference range was not used to int erpret this result as normal/abnormal . BACTERIA (test code = Negative Negative 3375721289) MUCOUS (test code = Slight Negative LPF A 3519264226) SQ EPITH (test code = See_Comment H [Auto mated message] 9303325157) The system [employer] generated this result transmitted ref erence range: <=2 HPF. The reference range was not used to int erpret this result as normal/abnormal . HYAL CAST (test code = See_Comment H [Aut omated message] 2118487626) The system [employer] generated this result transmitted ref erence range: <=2 LPF. The reference range was not used to int erpret this result as normal/abnormal . Lab Interpretation (test Abnormal code = 58315-8) [facility] WITH [id number] 04:31:00 Test Item Value Reference Range Interpretation [...] (test code = 50.6 fL 39-49.9 H 80864-9) RDW-CV (test code = 14.8 % 12-15.5 788-0) PLT (test code = See_Comment [Automated 777-3) message] The sy stem which generated this result transmitted reference range : 166 - 358 10*3/ ?L. The reference r susan was not used to interpret this result as normal/abnormal . MPV (test code = 10.6 fL 9.5-12.9 36418-0) NRBC/100 WBC (test See_Comment [Automat ed code = 7697136567) message] The system which generated this result transmitted reference range : 0.0 - 10.0 /100 WBCs. The refer ence range was not u sed to interpret th is result as normal/abnormal . NRBC x10^3 (test code <0.01 See_Comment [Auto mated = 8808024604) message] The s ystem which generated this result transmitted reference range : 10*3/?L. The reference range was not used to interpret this result as normal/abnormal . GRAN MAT (NEUT) % 60.1 % (test code = 770-8) IMM GRAN % (test code 0.70 % = 7829925743) LYMPH % (test code = 18.1 % 736-9) MONO % (test code = 6.1 % 5905-5) EOS % (test code = 14.3 % 713-8) BASO % (test code = 0.7 % 706-2) GRAN MAT x10^3(ANC) 5.24 10*3/uL 1.88-7.09 (test code = 5176357293) IMM GRAN x10^3 (test 0.06 10*3/uL 0-0.06 code = 8390710957) LYMPH x10^3 (test code 1.58 10*3/uL 1.32-3.29 = 731-0) MONO x10^3 (test code 0.53 10*3/uL 0.33-0.92 = 742-7) EOS x10^3 (test code = 1.25 10*3/uL 0.03-0.39 H 711-2) BASO x10^3 (test code 0.06 10*3/uL 0.01-0.07 = 704-7) Lab Interpretation Abnormal (test code = 68498-0) [facility] CenterPOVT URINALYSIS W SPECIFIC [id number] 20:25:00 Test Item Value Reference Range Interpretation [...] POCT U APPEAR (test code = 3267) [facility] CenterN-TERMINAL [id number] 02:52:00 Test Item Value Reference Range Interpretation Comments NT-proBNP (test code 423 pg/mL See_Comment H [Autom ated = 1401104523) message] The system which generated this result transmitted reference range : <=125. The reference range was not used to interpret this result as normal/abnormal . MICKY (test code = MICKY) Biotin has been reported to cause a negative bias, interpret results relative to patient's use of biotin. Lab Interpretation Abnormal (test code = 57360-5) [facility] CenterCOMP. METABOLIC PANEL (78495)2018-12-29 02:44:00 Test Item Value Reference Range Interpretation Comments NA (test code = 141 mmol/L 135-145 2222340969) K (test code = 3.8 mmol/L 3.5-5 2354252440) CL (test code = 110 mmol/L 98-108 H 9326461662) CO2 TOTAL (test code = 23 mmol/L 23-31 0922723723) AGAP (test code = 2-16 2049662087) BUN (test code = 12 mg/dL 7-23 3822708025) GLUCOSE (test code = 103 mg/dL 70-110 8314085511) CREATININE (test code = 0.50 mg/dL 0.5-1.04 8786253281) TOTAL BILI (test code = 0.6 mg/dL 0.1-1.9 9238604962) CALCIUM (test code = 8.9 mg/dL 8.6-10.6 1800641351) T PROTEIN (test code = 6.8 g/dL 6.3-8.2 9407608827) ALBUMIN (test code = 3.5 g/dL 3.5-5 0333484742) ALK PHOS (test code = 86 U/L 34-122 0511376275) ALT(SGPT) (test code = 19 U/L 9-51 4667495722) AST(SGOT) (test code = 29 U/L 13-40 0486409059) eGFR Calculation mL/min/1.73m2 (Non-) (test code = 0191689890) eGFR Calculation mL/min/1.73m2 () (test code = 2308046908) MICKY (test code = MICKY) Association of [...] tests). Lab Interpretation Abnormal (test code = 81145-8) [facility] CenterLIPASE2019-09-14 02:44:00 Test Item Value Reference Range Interpretation Comments LIPASE (test code = 1313366050) 89 U/L 0-220 Lab Interpretation (test code = Normal 99459-3) [facility] CenterMAGNESIUM2019-09-14 02:44:00 Test Item Value Reference Range Interpretation Comments MAGNESIUM (test code = 5789190791) 1.5 mg/dL 1.7-2.4 L Lab Interpretation (test code = Abnormal 99044-2) [facility] CenterPROTHROMBIN TIME / [id number] 02:40:00 Test Item Value Reference Range Interpretation Comments PROTIME PATIENT (test See_Comment [Auto mated message] code = 5964-2) The system [employer] generated this result transmitted ref erence range: 12.0 - 1 4.7 Seconds. The re ference range was not u sed to interpret this result as normal/abnor mal. INR (test code = 6301-6) Nor mal INR <1.1; Warfarin Therap eutic range 2.0 to 3. 0 or 2.5 to 3.5, dep ending upon the indica tions. Lab Interpretation (test Normal code = 01088-8) [facility] CenterURINALYSIS2019-09-14 02:37:00 Test Item Value Reference Range Interpretation Comments APPEARANCE (test code = Cloudy Clear A 1103117464) COLOR (test code = Laura Yellow A 7018197920) PH (test code = 4.8-8.0 5034096353) SP GRAVITY (test code = 1.003-1.030 6307850795) GLU U QUAL (test code = Normal Normal 3170723915) BLOOD (test code = 3+ Negative A 0309323815) KETONES (test code = Negative Negative 2115989678) PROTEIN (test code = 100 mg/dL Negative A 2887-8) UROBILIN (test code = 4.0 mg/dL Normal A 5306945295) BILIRUBIN (test code = Negative Negative 3830418030) NITRITE (test code = Negative Negative 7710836666) LEUK MISBAH (test code = 75/uL Negative A 0584148521) RBC/HPF (test code = See_Comment H [Autom ated message] 7304454918) The system [employer] generated this result transmit ramana reference range : 0 - 3 HPF. The refe rence range was not u sed to interpret th is result as normal/abnormal . WBC/HPF (test code = See_Comment H [Autom ated message] 5117477136) The system [employer] generated this result transmit ramana reference range : 0 - 5 HPF. The refe rence range was not u sed to interpret th is result as normal/abnormal . BACTERIA (test code = Moderate Negative A 2993693918) MUCOUS (test code = Marked Negative LPF A 2967886022) SQ EPITH (test code = HPF 9999363823) YEAST BUD (test code = See_Comment H [Aut omated message] 3134819533) The system [employer] generated this result transmit ramana reference range : <=1 HPF. The refere nce range was not u sed to interpret th is result as normal/abnormal . ROSSI EPITH (test code = See_Comment [Aut omated message] 8565879120) The system [employer] generated this result transmit ramana reference range : <=1 HPF. The refere nce range was not u sed to interpret th is result as normal/abnormal . Lab Interpretation (test Abnormal code = 34711-9) [facility] WITH [id number] 02:09:00 Test Item Value Reference Range Interpretation [...] (test code = 52.4 fL 39-49.9 H 68655-8) RDW-CV (test code = 15.3 % 12-15.5 788-0) PLT (test code = See_Comment L [Automated 777-3) message] The sy stem which generated this result transmitted reference range : 166 - 358 10*3/ ?L. The reference r susan was not used to interpret this result as normal/abnormal . MPV (test code = 11.3 fL 9.5-12.9 07207-5) NRBC/100 WBC (test See_Comment [Automat ed code = 9849359923) message] The system which generated this result transmitted reference range : 0.0 - 10.0 /100 WBCs. The refer ence range was not u sed to interpret th is result as normal/abnormal . NRBC x10^3 (test code See_Comment [Auto mated = 2268819788) message] The s ystem which generated this result transmitted reference range : 10*3/?L. The reference range was not used to interpret this result as normal/abnormal . GRAN MAT (NEUT) % 70.5 % (test code = 770-8) IMM GRAN % (test code 0.80 % = 2864236358) LYMPH % (test code = 16.6 % 736-9) MONO % (test code = 6.0 % 5905-5) EOS % (test code = 5.8 % 713-8) BASO % (test code = 0.3 % 706-2) GRAN MAT x10^3(ANC) 5.46 10*3/uL 1.88-7.09 (test code = 7887181585) IMM GRAN x10^3 (test 0.06 10*3/uL 0-0.06 code = 5033741505) LYMPH x10^3 (test code 1.28 10*3/uL 1.32-3.29 L = 731-0) MONO x10^3 (test code 0.46 10*3/uL 0.33-0.92 = 742-7) EOS x10^3 (test code = 0.45 10*3/uL 0.03-0.39 H 711-2) BASO x10^3 (test code <0.03 0.01-0.07 = 704-7) Lab Interpretation Abnormal (test code = 89023-8) [facility] URINALYSIS W SPECIFIC [id number] 18:54:00 Test Item Value Reference Range Interpretation [...] U APPEAR (test code = 3267) * [facility] CenterRHO (D) IMMUNE [id number] 12:40:02 Test Item Value Reference Range Interpretation Comments RHIG CANDIDATE? No- see comment Patient i s not a (test code = candidate for R hIg- 5055) Patient is Rh Positive.Perfor med at [facility] Laboratory Services - [facility] Blood [address] [place], [place] [address]Toll Free: [phone] A No. [id number] [facility] CenterCB WITH [id number] 09:27:00 Test Item Value Reference Range Interpretation [...] (test code = 52.0 fL 39-49.9 H 79155-9) RDW-CV (test code = 15.2 % 12-15.5 788-0) PLT (test code = See_Comment L [Automated 777-3) message] The sy stem which generated this result transmitted reference range : 166 - 358 10*3/ ?L. The reference r susan was not used to interpret this result as normal/abnormal . MPV (test code = 10.8 fL 9.5-12.9 09098-4) NRBC/100 WBC (test See_Comment [Automat ed code = 6482967036) message] The system which generated this result transmitted reference range : 0.0 - 10.0 /100 WBCs. The refer ence range was not u sed to interpret th is result as normal/abnormal . NRBC x10^3 (test code <0.01 See_Comment [Auto mated = 2114522015) message] The s ystem which generated this result transmitted reference range : 10*3/?L. The reference range was not used to interpret this result as normal/abnormal . GRAN MAT (NEUT) % 73.9 % (test code = 770-8) IMM GRAN % (test code 0.50 % = 9583932926) LYMPH % (test code = 15.2 % 736-9) MONO % (test code = 7.2 % 5905-5) EOS % (test code = 3.1 % 713-8) BASO % (test code = 0.1 % 706-2) GRAN MAT x10^3(ANC) 5.65 10*3/uL 1.88-7.09 (test code = 6652276672) IMM GRAN x10^3 (test 0.04 10*3/uL 0-0.06 code = 2687130790) LYMPH x10^3 (test code 1.16 10*3/uL 1.32-3.29 L = 731-0) MONO x10^3 (test code 0.55 10*3/uL 0.33-0.92 = 742-7) EOS x10^3 (test code = 0.24 10*3/uL 0.03-0.39 711-2) BASO x10^3 (test code <0.03 0.01-0.07 = 704-7) Lab Interpretation Abnormal (test code = 81491-3) [facility] WITH [id number] 16:03:00 Test Item Value Reference Range Interpretation [...] RDW-SD (test code = 49.8 fL 39-49.9 87110-4) RDW-CV (test code = 15.0 % 12-15.5 788-0) PLT (test code = See_Comment L [Automated 777-3) message] The sy stem which generated this result transmitted reference range : 166 - 358 10*3/ ?L. The reference r susan was not used to interpret this result as normal/abnormal . MPV (test code = 11.2 fL 9.5-12.9 25945-9) NRBC/100 WBC (test See_Comment [Automat ed code = 1487131961) message] The system which generated this result transmitted reference range : 0.0 - 10.0 /100 WBCs. The refer ence range was not u sed to interpret th is result as normal/abnormal . NRBC x10^3 (test code <0.01 See_Comment [Auto mated = 9787257699) message] The s ystem which generated this result transmitted reference range : 10*3/?L. The reference range was not used to interpret this result as normal/abnormal . GRAN MAT (NEUT) % 85.8 % (test code = 770-8) IMM GRAN % (test code 1.10 % = 3883085347) LYMPH % (test code = 6.5 % 736-9) MONO % (test code = 5.1 % 5905-5) EOS % (test code = 1.3 % 713-8) BASO % (test code = 0.2 % 706-2) GRAN MAT x10^3(ANC) 9.20 10*3/uL 1.88-7.09 H (test code = 0863636641) IMM GRAN x10^3 (test 0.12 10*3/uL 0-0.06 H code = 0052572442) LYMPH x10^3 (test code 0.70 10*3/uL 1.32-3.29 L = 731-0) MONO x10^3 (test code 0.55 10*3/uL 0.33-0.92 = 742-7) EOS x10^3 (test code = 0.14 10*3/uL 0.03-0.39 711-2) BASO x10^3 (test code <0.03 0.01-0.07 = 704-7) Lab Interpretation Abnormal (test code = 20315-0) [facility] ON A CART THROMBELASTOGRAPH CITRATED KAOLIN [id number] 21:35:00 Test Item Value Reference Range Interpretation Comments R (test code = 7712368470) 6.8 min 5-10 TEG K (test code = 5952912620) 5.2 min 1-3 H Angle (test code = 2651139448) 39.4 deg 53-72 L MA (test code = 6506042172) 35.7 min 50-70 L Lab Interpretation (test code = Abnormal 14104-1) [facility] ON A CART THROMBELASTOGRAPH CITRATED [id number] 16:23:00 Test Item Value Reference Range Interpretation Comments R (test code = 4953659545) 5.9 min 5-10 TEG K (test code = 9664564860) 4.9 min 1-3 H Angle (test code = 5474220142) 44.5 deg 53-72 L MA (test code = 1431660733) 38.7 min 50-70 L Lab Interpretation (test code = Abnormal 71949-4) [facility] WITH [id number] 16:16:00 Test Item Value Reference Range Interpretation [...] (test code = 50.5 fL 39-49.9 H 98708-1) RDW-CV (test code = 15.1 % 12-15.5 788-0) PLT (test code = See_Comment L [Automated 777-3) message] The sy stem which generated this result transmitted reference range : 166 - 358 10*3/ ?L. The reference r susan was not used to interpret this result as normal/abnormal . MPV (test code = 10.5 fL 9.5-12.9 74646-1) NRBC/100 WBC (test See_Comment [Automat ed code = 3352917830) message] The system which generated this result transmitted reference range : 0.0 - 10.0 /100 WBCs. The refer ence range was not u sed to interpret th is result as normal/abnormal . NRBC x10^3 (test code <0.01 See_Comment [Auto mated = 1614822352) message] The s ystem which generated this result transmitted reference range : 10*3/?L. The reference range was not used to interpret this result as normal/abnormal . GRAN MAT (NEUT) % 73.2 % (test code = 770-8) IMM GRAN % (test code 0.80 % = 1755976740) LYMPH % (test code = 20.1 % 736-9) MONO % (test code = 4.9 % 5905-5) EOS % (test code = 0.9 % 713-8) BASO % (test code = 0.1 % 706-2) GRAN MAT x10^3(ANC) 7.42 10*3/uL 1.88-7.09 H (test code = 6934819218) IMM GRAN x10^3 (test 0.08 10*3/uL 0-0.06 H code = 7471969165) LYMPH x10^3 (test code 2.04 10*3/uL 1.32-3.29 = 731-0) MONO x10^3 (test code 0.50 10*3/uL 0.33-0.92 = 742-7) EOS x10^3 (test code = 0.09 10*3/uL 0.03-0.39 711-2) BASO x10^3 (test code <0.03 0.01-0.07 = 704-7) Lab Interpretation Abnormal (test code = 22165-4) [facility] [id number] 16:09:00 Test Item Value Reference Range Interpretation Comments BASE EXCESS, CORD mEq/L (test code = 8086499604) AC PH, CORD (BEAKER) 7.18-7.38 (test code = 3804726190) PC02, CORD (test code See_Comment [Auto mated message] The = 6062254260) system which g enerated this result transmit ramana reference range : 32 - 66 mmHg. The refer ence range was not used to interpret this result as normal/abnormal . PO2, CORD (test code See_Comment [Autom ated message] The = 6745858446) system which g enerated this result transmit ramana reference range : 10 - 30 mmHg. The refer ence range was not used to interpret this result as normal/abnormal . BICARBONATE, CORD See_Comment [Automate d message] The (test code = system which ge nerated this 4132298215) result transmit ramana reference range : 17 - 27 mEq/L. The refe rence range was not used to interpret this result as normal/abnormal . [facility] [id number] 16:07:00 Test Item Value Reference Range Interpretation Comments VENOUS BASE EXCESS, CORD mEq/L (test code = 0443451956) VENOUS PH, CORD (test 7.25-7.45 code = 4230016145) VENOUS PC02, CORD (test See_Comment [Au tomated message] code = 0825586218) The syste m which generated this result transmitted ref erence range: 27 - 49 mmHg. The reference r susan was not used to interpret this result as normal/abnor mal. VENOUS PO2, CORD (test See_Comment H [Aut omated message] code = 1823955841) The syste m which generated this result transmitted ref erence range: 17 - 41 mmHg. The reference r susan was not used to interpret this result as normal/abnor mal. VENOUS BICARBONATE, CORD See_Comment [A utomated message] (test code = 3978278678) The system which generated this result transmitted ref erence range: 12 - 29 mEq/L. The reference r susan was not used to interpret this result as normal/abnor mal. Lab Interpretation (test Abnormal code = 14379-9) [facility] ONLY - SYPHILIS [id number] 14:12:00 Test Item Value Reference Range Interpretation Comments Syphilis IgG/IgM (test Non-reactive Non-reactive code = 65053-8) MICKY (test code = MICKY) Non-reactive - No serologic evidence of T. pallidum infection. Cannot exclude incubating or early syphilis. Submit a second specimen in 2-4 weeks if syphilis is clinically suspected.Equivocal - Further testing to follow.Reactive - Further testing to follow. Lab Interpretation (test Normal code = 03603-4) [facility] Platelets (in units): 1 Units~Indication: 4) Evidence of platelet dysfunction and no response to DDAVP or cryoprecipitate with active hemorrhage or at risk for [id number] 13:34:52 Test Item Value Reference Range Interpretation Comments Unit Blood Type (test O Pos code = 4410) ISBT Blood Type Code (test code = 151055) Unit Number (test code [id number] = 4411) Blood Expiration Date & Time (test code = 155405) Status Information Issued (test code = 4412) Product Identification Platelets (test code = 4413) Product Code (test B1208NN8 Performed at [facility] code = 4414) Laboratory Services [facility] Blood [address] [address]Uoxz Free: [phone] A No. [id number] [facility] Platelets (in units): 1 Units~Indication: 1) Platelets < 10,000 for bleeding [id number] 13:34:51 Test Item Value Reference Range Interpretation Comments Unit Blood Type (test O Pos code = 4410) ISBT Blood Type Code (test code = 952995) Unit Number (test code [id number] = 4411) Blood Expiration Date & Time (test code = 420082) Status Information Issued (test code = 4412) Product Identification Platelets (test code = 4413) Product Code (test K1422D64 Performed at [facility] code = 4414) Laboratory Services [facility] Blood [address] [address]Os[address] Free: [phone] A No. [id number] [facility] CenterHepatitis B Surface [id number] 05:55:00 Test Item Value Reference Range Interpretation Comments HBsAg Semi-Quantitative (test code = 5195-3) [facility] Center[facility] Screen - ONCE [id number] 04:09:59 Test Item Value Reference Range Interpretation Comments ABO & RH (test code A POSITIVE Performe d at [facility] = 20) Laboratory Serv [facility] [address] [facility] [address]Xqjf Free: [phone] A No. [id number] IAT (test code = Negative Performed a t [facility] 1185) Laboratory Serv [facility] [address] [facility] [address]Uhyc Free: [phone] A No. [id number] [facility] WITH [id number] 04:09:00 Test Item Value Reference Range Interpretation [...] (test code = 50.7 fL 39-49.9 H 18052-5) RDW-CV (test code = 14.9 % 12-15.5 788-0) PLT (test code = See_Comment L [Automated 777-3) message] The sy stem which generated this result transmitted reference range : 166 - 358 10*3/ ?L. The reference r susan was not used to interpret this result as normal/abnormal . MPV (test code = 11.0 fL 9.5-12.9 70352-0) NRBC/100 WBC (test See_Comment [Automat ed code = 3402448151) message] The system which generated this result transmitted reference range : 0.0 - 10.0 /100 WBCs. The refer ence range was not u sed to interpret th is result as normal/abnormal . NRBC x10^3 (test code <0.01 See_Comment [Auto mated = 2024685040) message] The s ystem which generated this result transmitted reference range : 10*3/?L. The reference range was not used to interpret this result as normal/abnormal . GRAN MAT (NEUT) % 76.1 % (test code = 770-8) IMM GRAN % (test code 0.40 % = 2282029774) LYMPH % (test code = 16.3 % 736-9) MONO % (test code = 6.2 % 5905-5) EOS % (test code = 0.8 % 713-8) BASO % (test code = 0.2 % 706-2) GRAN MAT x10^3(ANC) 7.93 10*3/uL 1.88-7.09 H (test code = 9863500160) IMM GRAN x10^3 (test 0.04 10*3/uL 0-0.06 code = 5323986736) LYMPH x10^3 (test code 1.69 10*3/uL 1.32-3.29 = 731-0) MONO x10^3 (test code 0.64 10*3/uL 0.33-0.92 = 742-7) EOS x10^3 (test code = 0.08 10*3/uL 0.03-0.39 711-2) BASO x10^3 (test code <0.03 0.01-0.07 = 704-7) Lab Interpretation Abnormal (test code = 25062-3) [facility] [id number] 16:13:01Cat I [facility] CenterPOCT URINALYSIS W SPECIFIC [id number] 15:39:00 Test Item Value Reference Range Interpretation [...] POCT U APPEAR (test code = 3267) [facility] NON-STRESS [id number] 19:32:31 Reactive NSTUnGothenburg [facility] URINALYSIS W SPECIFIC GRAVITY 2018-12-18 [...] POCT U APPEAR (test code = 3267) [facility] NON-STRESS [id number] 19:37:16NST NOTE12/13/2018 2:28 PM GA: 36w4d Baseline: 130sVariability: ModerateAccels: +Decels: NoneToco: Quiescent Assessment: Reactive and reassuringPlan: Repeat as scheduledUnGothenburg Memorial Hospital NON-STRESS [id number] 16:54:14NST reviewed, FHR 140s, moderate variability noted, category I, no contractions.[facility] URINALYSIS W SPECIFIC [id number] 15:45:00 Test Item Value Reference Range Interpretation [...] POCT U APPEAR (test code = 3267) [facility] CenterGROUP B STREPTOCOCCUS BY [id number] 15:17:00 Test Item Value Reference Range Interpretation Comments Group B Streptococcus by PCR (test Negative Negative code = 62767-1) Lab Interpretation (test code = Normal 14769-8) [facility] CenterCB WITH [id number] 06:28:00 Test Item Value Reference Range Interpretation Comments WBC (test code = See_Comment [Automated 6190-2) message] The sy stem which generated this [...] (test code = 54.0 fL 39-49.9 H 79704-5) RDW-CV (test code = 15.9 % 12-15.5 H 788-0) PLT (test code = See_Comment L [Automated 777-3) message] The sy stem which generated this result transmitted reference range : 166 - 358 10*3/ ?L. The reference r susan was not used to interpret this result as normal/abnormal . MPV (test code = 11.6 fL 9.5-12.9 00091-2) IPF % (test code = 5.3 % 1.3-7.7 Platelet count [id number]) measured by fluorescence method. NRBC/100 WBC (test See_Comment [Automat ed code = 9592099631) message] The system which generated this result transmitted reference range : 0.0 - 10.0 /100 WBCs. The refer ence range was not u sed to interpret th is result as normal/abnormal . NRBC x10^3 (test code <0.01 See_Comment [Auto mated = 8092526554) message] The s ystem which generated this result transmitted reference range : 10*3/?L. The reference range was not used to interpret this result as normal/abnormal . GRAN MAT (NEUT) % 80.4 % (test code = 770-8) IMM GRAN % (test code 0.40 % = 9319416247) LYMPH % (test code = 12.4 % 736-9) MONO % (test code = 5.6 % 5905-5) EOS % (test code = 1.0 % 713-8) BASO % (test code = 0.2 % 706-2) GRAN MAT x10^3(ANC) 6.55 10*3/uL 1.88-7.09 (test code = 7418093637) IMM GRAN x10^3 (test 0.03 10*3/uL 0-0.06 code = 1076151039) LYMPH x10^3 (test code 1.01 10*3/uL 1.32-3.29 L = 731-0) MONO x10^3 (test code 0.46 10*3/uL 0.33-0.92 = 742-7) EOS x10^3 (test code = 0.08 10*3/uL 0.03-0.39 711-2) BASO x10^3 (test code <0.03 0.01-0.07 = 704-7) Lab Interpretation Abnormal (test code = 62210-5) [facility] [id number] 21:11:11NST reactive and reassuring, 1 ctx notedUnThe Hospitals of [facility] CampusPOCT URINALYSIS W SPECIFIC [id number] 15:35:00 Test Item Value Reference Range Interpretation [...] POCT U APPEAR (test code = 3267) [facility] NON-STRESS [id number] 18:37:51[facility] [id number] 18:37:51Cat I [facility] NON-STRESS [id number] 18:37:51Cat I [facility] URINALYSIS W SPECIFIC [id number] 17:59:00 Test Item Value Reference Range Interpretation [...] POCT U APPEAR (test code = 3267) [facility] URINALYSIS W SPECIFIC [id number] 17:59:00 Test Item Value Reference Range Interpretation [...] POCT U APPEAR (test code = 3267) [facility] URINALYSIS W SPECIFIC [id number] 17:59:00 Test Item Value Reference Range Interpretation [...] POCT U APPEAR (test code = 3267) [facility] [id number] 17:50:16 Reactive and reassuringUnGothenburg [facility] Hospital URINALYSIS W SPECIFIC [id number] 15:21:00 Test Item Value Reference Range Interpretation [...] POCT U APPEAR (test code = 3267) [facility] NON-STRESS [id number] 14:37:24Cat 1 NST reactive, reviewed with Dr. [facility]Got[facility] URINALYSIS W SPECIFIC [id number] 13:15:00 Test Item Value Reference Range Interpretation [...] POCT U APPEAR (test code = 3267) [facility] NON-STRESS [id number] 14:57:43 nonreactive NST with spontaneous decels to 100s from baseline. Will send to LD for prolonged monitoring.[facility] NON-STRESS TEST 2018-11-19 14:57:43nonreactive NST with spontaneous decels to 100s from baseline. Will send to LD for prolonged monitoring.[facility]-STR[facility] [id number] 14:57:43nonreactive NST with spontaneous decels to 100s from baseline. Will send to LD for prolonged monitoring. [facility] URINALYSIS W SPECIFIC [id number] 14:30:00 Test Item Value Reference Range Interpretation [...] POCT U APPEAR (test code = 3267) [facility] URINALYSIS W SPECIFIC [id number] 14:30:00 Test Item Value Reference Range Interpretation [...] POCT U APPEAR (test code = 3267) [facility] [id number] 14:30:00 Test Item Value Reference Range Interpretation [...] POCT U APPEAR (test code = 3267) [facility] NON-STRESS [id number] 20:17:18NON STRESS TEST INTERPRETATIONDate: 11/15/2018 15:16 Bri [...] 2 accelerationsComments: toco quiescedPlan: Continue NST 2x weekModesto De La Rosa MD #[id number] 3:16 PM?[facility]FET[facility] NON-STRESS [id number] 20:17:18NON STRESS TEST INTERPRETATIONDate: 11/15/2018 15:16 Bri [...] 2 accelerationsComments: toco quiescedPlan: Continue NST 2x weekModesto De La Rosa MD #[id number] 3:16 PM?[facility] URINALYSIS W SPECIFIC [id number] 19:32:00 Test Item Value Reference Range Interpretation [...] POCT U APPEAR (test code = 3267) [facility] URINALYSIS W SPECIFIC [id number] 19:32:00 Test Item Value Reference Range Interpretation [...] POCT U APPEAR (test code = 3267) [facility] [id number] 17:13:56 Reactive and reassuringUnThe Hospitals [facility] CampusPOCT URINALYSIS W SPECIFIC [id number] 15:56:00 Test Item Value Reference Range Interpretation [...] POCT U APPEAR (test code = 3267) [facility]"
[2021-07-29 14:59] LABS: Absolute Lymphocytes (CBC) 1.3 K/uL (0.7-4.9); Hematocrit 19.3 % (36.0-45.0); Lymphocytes % 31.4 % (15.3-44.8); MPV 9.4 fL (7.6-11.3); RBC Red Blood Cell Count 2.46 M/uL (3.86-4.86)
[2021-07-29 15:05] LABS: Protime INR 1.3
[2021-07-29] MEDS ORDERED: NA CHLORIDE 0.9% 1,000 ML ONE (15:12)
[2021-07-29 15:14] LABS: ALT/SGPT 18 U/L (12-78); AST/SGOT 11 U/L (15-37); Albumin 3.5 g/dL (3.4-5.0); Alkaline Phosphatase 62 U/L (45-117); BUN Blood Urea Nitrogen 13 mg/dL (7-18); Bicarbonate 25 mmol/L (21-32); Bilirubin Total 0.2 mg/dL (0.2-1.0); Glucose Level 86 mg/dL (74-106); Potassium 3.7 mmol/L (3.5-5.1); Protein, Total 7.4 g/dL (6.4-8.2); Sodium Level 139 mmol/L (136-145)
[2021-07-29 15:30] LABS: Bilirubin Direct < 0.1 mg/dL (0-0.2)
[2021-07-29] MEDS ORDERED: ACETAMINOPHEN 325 MG TABLET ONE (17:45)
[2021-07-29] MEDS ORDERED: NA CHLORIDE 0.9% 250 ML ONE (17:45)
[2021-07-29] MEDS ORDERED: DIPHENHYDRAMINE 50 MG/ML VIAL ONE (17:52)
--- NOTE | 2021-07-29 18:12 | EDPHYS ---
Physician Documentation [facility] Name: Bri Boyd Age: 36 yrs Sex: Female : 1985 Arrival Date: 07/29/2021 Time: 14:34 Bed 2 Private MD: ED Physician Gm Strong HPI: 07/29 16:52 This 36 yrs old Female presents to ER via EMS with complaints of Possible Overdose. jr8 16:52 Severity of symptoms: At their worst the symptoms were moderate. It is unknown whether jr8 or not the patient has had similar symptoms in the past. It is unknown whether or not the patient has recently seen a physician. This is a 36-year-old female that was brought in by EMS after being found in a park hunched over. Patient stated that she took her gabapentin, unknown muscle relaxant, and her hydrocodone and then was with her sister at the park feeding ducks. Patient stated that she did not think she was going to be that sleepy. Patient easily aroused while in exam room to verbal stimulus. No acute distress at this time.. 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 - Social history:: Smoking status: Patient denies any tobacco usage or history of. Patient/guardian denies using alcohol, street drugs. ROS: 16:52 Eyes: Negative for injury, pain, redness, and discharge, ENT: Negative for injury, jr8 pain, and discharge, Neck: Negative for injury, pain, and swelling, Cardiovascular: Negative for chest pain, palpitations, and edema, Respiratory: Negative for shortness of breath, cough, wheezing, and pleuritic chest pain, Abdomen/GI: Negative for abdominal pain, nausea, vomiting, diarrhea, and constipation, Back: Negative for injury and pain, MS/Extremity: Negative for injury and deformity, Skin: Negative for injury, rash, and discoloration, Neuro: Negative for headache, weakness, numbness, tingling, and seizure. 16:52 Psych: Negative for depression, anxiety, suicide ideation, homicidal ideation, and hallucinations. Exam: 16:52 ENT: Nares patent. No nasal discharge, no septal abnormalities noted. Tympanic jr8 membranes are normal and external auditory canals are clear. Oropharynx with no redness, swelling, or masses, exudates, or evidence of obstruction, uvula midline. Mucous membranes moist. 16:52 Cardiovascular: Regular rate and rhythm with a normal S1 and S2. No gallops, murmurs, or rubs. Normal PMI, no JVD. No pulse deficits. Respiratory: Lungs have equal breath sounds bilaterally, clear to auscultation and percussion. No rales, rhonchi or wheezes noted. No increased work of breathing, no retractions or nasal flaring. Abdomen/GI: Soft, non-tender, with normal bowel sounds. No distension or tympany. No guarding or rebound. No evidence of tenderness throughout. Back: No spinal tenderness. No costovertebral tenderness. Full range of motion. Skin: Warm, dry with normal turgor. Normal color with no rashes, no lesions, and no evidence of cellulitis. Bruising to various parts of her lower and upper extremities MS/ Extremity: Pulses equal, no cyanosis. Neurovascular intact. Full, normal range of motion. 16:52 Constitutional: The patient appears Sleepy 16:52 Eyes: Periorbital structures: appear normal, Pupils: equal, round, and reactive to light and accomodation, Extraocular movements: intact throughout, Conjunctiva: pale, bilaterally. 16:52 Neuro: Orientation: to person, place, situation, Mentation: able to follow commands, slow to respond, Memory: immediate memory is intact, remote memory is intact. recent memory is intact, Cranial nerves: extraocular movements are intact, Facial palsy and sensory deficits are absent. Speech is slurred, Motor: moves all fours, Sensation: no obvious gross deficits, seizure activity, is not displayed by the patient, Abnormal movements: there are no abnormal movements. Vital Signs: 14:25 BP 100 / 74; Pulse 97; Resp 16; Temp 97.6; Pulse Ox 100% on R/A; Weight 81.19 kg; vg1 Height 5 ft. 6 in. (167.64 cm); 15:55 BP 92 / 73; Pulse 88; Resp 19; Pulse Ox 100% on R/A; vg1 16:55 BP 105 / 67; Pulse 80; Resp 14; Pulse Ox 100% on R/A; vg1 19:30 BP 102 / 68; Pulse 62; Resp 11; Pulse Ox 100% on R/A; ll3 14:25 Body Mass Index 28.89 (81.19 kg, 167.64 cm) vg1 Celeste Coma Score: 16:52 Eye Response: to voice(3). Verbal Response: oriented(5). Motor Response: obeys jr8 commands(6). Total: 14. MDM: 14:34 Patient medically screened. s[place]ana 18:10 Data reviewed: vital signs, nurses notes, lab test result(s), and as a result, I will jr8 discharge patient. Data interpreted: Pulse oximetry: on room air is 100 %. Interpretation: normal. Counseling: I had a detailed discussion with the patient and/or guardian regarding: the historical points, exam findings, and any diagnostic results supporting the discharge/admit diagnosis, lab results, the need for further work-up and treatment in the hospital. 19:43 ED course: Patient for unknown reason wants to leave before her blood is complete. 8 Nurse and medical staff tried to reason with her about this but did not care. Patient currently alert and oriented to person, place, time, event. No cognitive impairment at this time. Patient signed AMA form and left . 07/29 14:36 Order name: Acetaminophen; Complete Time: 16:14 [facility] 07/29 14:36 Order name: Basic Metabolic Panel; Complete Time: 16:14 [facility] 07/29 14:36 Order name: CBC with Diff; Complete Time: 15:07 [facility] 07/29 14:36 Order name: ETOH Level; Complete Time: 16:14 [facility] 07/29 14:36 Order name: Hepatic Function; Complete Time: 16:14 [facility] 07/29 14:36 Order name: PT-INR; Complete Time: 15:07 [facility] 07/29 14:36 Order name: Ptt, Activated; Complete Time: 15:07 [facility] 07/29 14:36 Order name: Salicylate; Complete Time: 16:14 [facility] 07/29 14:36 Order name: Urine Drug Screen [facility] 07/29 14:36 Order name: EKG; Complete Time: 14:37 [facility] 07/29 15:02 Order name: TS jr8 07/29 16:09 Order name: Packed RBC Leukored [facility] 07/29 18:37 Order name: COVID-19 (Coronavirus) Document "Date of Onset" if Symptomatic jr8 07/29 14:36 Order name: EKG - Nurse/Tech; Complete Time: 15:16 [facility] 07/29 14:36 Order name: IV Saline Lock; Complete Time: 14:46 [facility] 07/29 14:36 Order name: Labs collected and sent; Complete Time: 14:46 [facility] 07/29 14:36 Order name: Suicide Precautions; Complete Time: 14:46 [facility] 07/29 14:36 Order name: Suicide Screening ([place]); Complete Time: 14:46 [facility] Administered Medications: 15:16 Drug: NS 0.9% 1000 ml Route: IV; Rate: 1 bolus; Site: left antecubital; vg1 17:09 Follow up: IV Status: Completed infusion; IV Intake: 1000ml vg1 Disposition Summary: 07/29/21 20:04 Left Against Medical Advice Location: Home(07/29/21 20:04) jr8 Problem: new(07/29/21 20:04) jr8 Symptoms: have improved(07/29/21 20:04) jr8 Condition: Stable(07/29/21 20:04) jr8 Diagnosis - Anemia, unspecified(07/29/21 20:04) jr8 - Adverse effect of other opioids, initial encounter jr8 Followup: jr8 - With: Private Physician - When: Tomorrow - Reason: Recheck today's complaints, Continuance of care, Re-evaluation by your physician Discharge Instructions: - Discharge Summary Sheet jr8 - Anemia jr8 - Opioid Overdose jr8 Signatures: Dispatcher [employer] EDSC Gm Strong MD MD cha Roszak, Josh, PA PA jr8 Lovely Baker, RN RN vg1 Corrections: (The following items were deleted from the chart) 20:00 14:36 Urine Dipstick-Ancillary ordered. [facility] ll3 20:00 14:36 Urine Test ordered. [place] ll3 20:04 18:12 Observation jr8 jr8 20:04 18:12 [employer] Marshal jr8 jr8 20:04 18:12 Telemetry/MedSurg (observation) jr8 jr8 20:04 18:12 Stable jr8 jr8 20:04 18:12 new jr8 jr8 20:04 18:12 have improved jr8 jr8 20:04 18:12 Standard jr8 jr8 20:04 18:12 jr8 jr8 20:04 18:12 Anemia, unspecified jr8 jr8
--- NOTE | 2021-07-29 18:12 | ER ---
Nurse's Notes [facility] Name: Bri Boyd Age: 36 yrs Sex: Female : 1985 Arrival Date: 07/29/2021 Time: 14:34 Bed 2 Private MD: Diagnosis: Anemia, unspecified;Adverse effect of other opioids, initial encounter Presentation: 07/29 14:25 Chief complaint: EMS states: [facility] called to report pt at park who was hunched vg1 over and 'looked like a possible overdose'. Upon arrival pt was found sleeping and [place] [employer] searched pt belongings and found loose pills in pt bag. Pt BG was 120, pt received 500 mL of NS. Pt responds with verbal stimuli but appears to be very drowsy. 14:25 Coronavirus screen: Vaccine status: Patient reports receiving the 2nd dose of the covid vg1 vaccine. Ebola Screen: Patient negative for fever greater than or equal to 101.5 degrees Fahrenheit, and additional compatible Ebola Virus Disease symptoms. Initial Sepsis Screen: Does the patient meet any 2 criteria? No. Patient's initial sepsis screen is negative. Does the patient have a suspected source of infection? No. Patient's initial sepsis screen is negative. Risk Assessment: Do you want to hurt yourself or someone else? Patient reports no desire to harm self or others. Onset of symptoms was July 29, 2021. 14:25 Method Of Arrival: EMS: [facility] vg1 14:25 Acuity: KARIE 2 vg1 14:25 Care prior to arrival: Medication(s) given: Normal saline infusion, 500 mL, IV vg1 initiated. 20 GA, in the left antecubital area. Triage Assessment: 14:25 General: Appears in no apparent distress. uncomfortable, Behavior is cooperative, vg1 drowsy. Pain: Complains of pain in back. EENT: No signs and/or symptoms were reported regarding the EENT system. Neuro: Level of Consciousness is alert, obeys commands, Oriented to person, place, time, situation. Cardiovascular: Patient's skin is warm and dry. Respiratory: Airway is patent Respiratory effort is even, unlabored. GI: No signs and/or symptoms were reported involving the gastrointestinal system. : No signs and/or symptoms were reported regarding the genitourinary system. Derm: Skin is pale, Bruising that is on left medial ankle. Musculoskeletal: Circulation, motion, and sensation intact. 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 - Social history:: Smoking status: Patient denies any tobacco usage or history of. Patient/guardian denies using alcohol, street drugs. Screenin:42 Abuse screen: Denies threats or abuse. Nutritional screening: No deficits noted. vg1 Tuberculosis screening: No symptoms or risk factors identified. Fall Risk No fall in past 12 months (0 pts). No secondary diagnosis (0 pts). IV access (20 points). Ambulatory Aid- None/Bed Rest/Nurse Assist (0 pts). Gait- Normal/Bed Rest/Wheelchair (0 pts) Mental Status- Oriented to own ability (0 pts). Total Adler Fall Scale indicates No Risk (0-24 pts). Assessment: 14:42 Reassessment: SEE TRIAGE. vg1 14:46 Reassessment: Pt denies SI. vg1 15:45 Reassessment: Patient appears in no apparent distress at this time. No changes from vg1 previously documented assessment. Patient and/or family updated on plan of care and expected duration. Pain level reassessed. 16:45 Reassessment: Patient appears in no apparent distress at this time. Patient and/or vg1 family updated on plan of care and expected duration. Pain level reassessed. Patient is alert, oriented x 3, equal unlabored respirations, skin warm/dry/pink. Patient denies pain at this time. 19:00 Reassessment: No changes from previously documented assessment. Patient and/or family ll3 updated on plan of care and expected duration. Pain level reassessed. Patient is alert, oriented x 3, equal unlabored respirations, skin warm/dry/pink. Overdose: 14:47 [place] Suicide Severity Screening: "In the past month, have you wished you were vg1 or wished you could go to sleep and not wake up?" Patient responds "no." "In the past month, have you actually had any thoughts of killing yourself?" Patient responds "no." "In your lifetime, have you ever done anything, started to do anything, or prepared to do anything to end your life?" Patient responds "no.". Vital Signs: 14:25 BP 100 / 74; Pulse 97; Resp 16; Temp 97.6; Pulse Ox 100% on R/A; Weight 81.19 kg; vg1 Height 5 ft. 6 in. (167.64 cm); 15:55 BP 92 / 73; Pulse 88; Resp 19; Pulse Ox 100% on R/A; vg1 16:55 BP 105 / 67; Pulse 80; Resp 14; Pulse Ox 100% on R/A; vg1 19:30 BP 102 / 68; Pulse 62; Resp 11; Pulse Ox 100% on R/A; ll3 14:25 Body Mass Index 28.89 (81.19 kg, 167.64 cm) vg1 Celeste Coma Score: 16:52 Eye Response: to voice(3). Verbal Response: oriented(5). Motor Response: obeys jr8 commands(6). Total: 14. ED Course: 14:25 Arm band placed on. vg1 14:34 Patient arrived in ED. ds1 14:34 Gm Strong MD is Attending Physician. santana 14:36 Akash Kim PA is PHCP. jr8 14:37 Lovely Baker, MCKENZIE is Primary Nurse. vg1 14:40 Triage completed. vg1 14:46 Patient has correct armband on for positive identification. Bed in low position. Call vg1 light in reach. Side rails up X2. 18:11 Marshal Schaffer MD is Hospitalizing Provider. jr8 Administered Medications: 15:16 Drug: NS 0.9% 1000 ml Route: IV; Rate: 1 bolus; Site: left antecubital; vg1 17:09 Follow up: IV Status: Completed infusion; IV Intake: 1000ml vg1 Intake: 17:09 IV: 1000ml; Total: 1000ml. vg1 Outcome: 18:12 Decision to Hospitalize by Provider. jr8 20:08 Patient left the ED. ll3 Signatures: Gm Strong MD MD cha Sanford, Demi ds1 Akash Kim PA PA jr8 Lovely Baker, MCKENZIE RN vg1 Loubet, Lynsea, RN RN ll3 Corrections: (The following items were deleted from the chart) 14:48 14:47 [place] Suicide Severity Screening: vg1 vg1 15:54 14:25 Derm: Bruising that is on left medial ankle vg1 vg1
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
[2021-07-30 01:26] VITALS: O2SAT 100
[2021-07-30 01:29] VITALS: BP 102/68
== END 2021-07-29 20:08 | disposition left against medical advice (07) ==
LOC: ER 14:26 → ERHOLD 18:59
PROVIDERS: ADMIT Internal Medicine Nephrology; ATTEND Internal Medicine Nephrology
PROC: 30233N1 Transfusion of Nonautologous Red Blood Cells into Peripheral Vein, Percutaneous Approach (ICD-10-PCS; principal; 2021-07-29)
DX: D50.0 Iron deficiency anemia secondary to blood loss (chronic) (principal); D69.1 Qualitative platelet defects; Z53.29 Procedure and treatment not carried out because of patient's decision for other reasons; G89.29 Other chronic pain; M79.606 Pain in leg, unspecified; C95.91 Leukemia, unspecified, in remission; G47.00 Insomnia, unspecified; Z88.6 Allergy status to analgesic agent; Z88.8 Allergy status to other drugs, medicaments and biological substances; Z90.49 Acquired absence of other specified parts of digestive tract; Z82.49 Family history of ischemic heart disease and other diseases of the circulatory system; Z83.3 Family history of diabetes mellitus; Z80.41 Family history of malignant neoplasm of ovary
CPT/HCPCS: 36415; 80048; 80076; 80320; 80329; 85025; 85610; 85730; 86850; 86900; 86901; 86922; 93005; 96360; 96361; 99283; G0378; J1200; J7030; J7050; P9016

== ENCOUNTER 2021-08-23 20:50 | Emergency (ER) | payer SELFPAY ==
--- OUTSIDE RECORDS SUMMARY | 2021-08-23 20:57 | XMS REPORT | Continuity of Care Document ---
:1985 Author Organization [facility] t Address [address] [place] [address] Care Team Providers Name Role Phone AKIL, Anayeli Primary Care Physician Unavailable Maya Cummins Attending Clinician Unavailable Ta Attending Clinician Unavailable Marlin Ramírez Attending Clinician Unavailable RENE Attending Clinician Unavailable Juan Manuel Reis DO Attending Clinician Misael RINCON Attending Clinician Unavailable Samuel RINCON, Leta Attending Clinician Unavailable [place] MD Attending Clinician Visit, Nurse Attending Clinician Unavailable Angela OVALLEP, C Attending Clinician Akil MARIEE, N Attending Clinician Holger Upton MD Attending Clinician Rocío SANDRA S Attending Clinician Syd MARIEE, R Attending Clinician Dl SANDRA Attending Clinician Ultrasound Attending Clinician Unavailable Soraida Ferguson Attending Clinician Risk Attending Clinician Unavailable Resident David Attending Clinician Unavailable Teresa MD, Ricarda Attending Clinician Eduardo SANDRA, W Attending Clinician 2, Mf Usg Room Attending Clinician Unavailable Doctor Unassigned, Name Attending Clinician Unavailable Aries SANDRA Attending Clinician Faculty, [facility] Attending Clinician Unavailable Emy ARCHULETA, L Attending Clinician Damien Olmos MD Attending Clinician Luigi Cordero Attending Clinician Chaparro Patel Attending Clinician 5, Mfm Usg Room Attending Clinician Unavailable Chato SANDRA, M Attending Clinician Rj SANDRA, F Attending Clinician Jose C SANDRA Attending Clinician Maya Cummins Admitting Clinician Unavailable [place] Admitting Clinician Unavailable Physician, Primary or Family Admitting Clinician Unavailmojgan Woods MD, M Admitting Clinician Dl SANDRA Admitting Clinician Damien Olmos MD Admitting Clinician Payers Payer Name Policy Type Policy Number Effective Date Expiration Date S ource MEDICAID PENDING PENDING 2021 00:00:00 Advance Directives Directive Decision Effective Termination Comments Source Date Date Healthcare Agents on N/A NPI: 1831 FileNameRelationAccess [facility] Daytonealthcare [id number] Agent RelationshipCommunicationLakehealth [facility] [phone] (Mobile) [email or web address] Problems Condition Condition Condition Status Onset Resolution Last Treating Co mments Source Name Details Category Date Date Treatment Clinician Date Abnormal Abnormal Disease Active 2018-04 NPI:1 83 TSH TSH 0-18 [id number] 00:00: 00 Fatty Fatty Disease Active 2018-04 NPI:183 liver liver 0-18 0307050 00:00: 00 Other Other Disease Active 2018-04 NPI:183 fatigue fatigue 0-18 [id number] 00:00: 00 Severe Severe Disease Active NPI:183 pre-eclamp pre-eclamp 9-17 13 80984 richard, richard, 00:00: 00 condition condition or or complicati complicati on on 37 weeks 37 weeks Disease Active NPI:1 83 gestation gestation 12-20 1318 781 of of 00:00: 00 Research Research Disease Active Overview: DIRECTOR PUBLIC POLICY I:183 study study 12-13 Notice of [id number] patient: patient: 00:00: research ECCCO: ECCCO: 00 participa Group C Group C tion in the ECCCO Trial: IRB # [id number]. PI-[place] [...] will give the patient a study questionn carl before discharge home. Patient will remain in the study until completio n of questionn aire. Delivery samples do not need to be collected . Please page the Research Departmen t. If you should have questions or concerns, you may page the PRD at [phone]. Disease Active N PI:183 anemia anemia 11-19 4370634 00:00: 00 Anemia of Anemia of Disease Active NPI :183 mother in mother in 11-19 1318 781 , , 00:00: antepartum antepartum 00 Obesity Obesity Disease Active NPI:183 (BMI (BMI 10-22 6961582 30-39.9) 30-39.9) 00:00: 00 Rubella Rubella Disease Active NPI:183 non-immune non-immune 10-09 05265 status, status, 00:00: antepartum antepartum 00 Need for Need for Disease Active NPI:1 83 immunizati immunizati 10-09 61843 on against on against 00:00: rubella rubella 00 Placental Placental Disease Active NPI :183 abnormalit abnormalit 10-09 66044 y y 00:00: 00 ASCUS with ASCUS with Disease Active Overview : NPI:183 positive positive - Schedule 1318 781 high risk high risk 00:00: patient human human 00 for colpo 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 of pp vagina vagina Multiparit Multiparit Disease Active N PI:183 y y 2-12 2382552 00:00: 00 History of History of Disease Active Overview : NPI:183 2-12 X2 347700 1 section section 00:00: 00 High risk High risk Disease Active NPI :183 , , 2 13 57307 antepartum antepartum 00:00: 00 Obesity in Obesity in Disease Active N PI:183 09-08 1318 781 00:00: 00 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 08-08 [id number] thrombosth thrombosth 00:00: enin enin 00 disorder disorder Chronic Chronic Disease Active NPI:183 hepatitis hepatitis 08-08 1318 781 C without C without 00:00: hepatic hepatic 00 coma coma Allergies, Adverse Reactions, Alerts Allergy Allergy Status [...] [facility] [place] iron DA [facility] [place] aspr[facility] DA Active SV itching, [facility] hives [facility] [place] iron DA Active [facility]KNOWN [facility] [place] Penicill Propensi Active Unknown - NPI :183 in ty to See comments 06-05 1318 781 adverse 00:00: reaction 00 s Penicill Propensi Active Unknown - NPI :183 in ty to See comments 06-05 1318 781 adverse 00:00: reaction 00 s PENICILL DRUG Active Unknown-Cmnt DIRECTOR PUBLIC POLICY I:183 IN INGREDI 06-05 6463031 00:00: 00 Aspirin Propensi Active Unknown - Unable to N PI:183 ty to See comments 12-24 take d/t [address]394 adverse 00:00: clotting reaction 00 disorder. s ASPIRIN DRUG Active Unknown-Cmnt NPI :183 INGREDI 12-24 1806522 00:00: 00 Social History Social Habit Start Date Stop Date Quantity Comments Source ASSERTION 2018-04-15 NPI:[id number] 00:00:00 1 Alcohol Comment occasionally NPI:183 [id number] 1 Alcohol intake 2019-02-01 2019-02-01 Current non-drinker N PI:[id number] 00:00:00 00:00:00 of alcohol (finding) 1 Tobacco use and 2019-02-01 2019-02-01 Never used NPI:[id number] 1878 exposure 00:00:00 00:00:00 1 Cigarettes smoked 2019-02-01 2019-02-01 NPI:183 [id number] current (pack per 00:00:00 00:00:00 1 day) - Reported Cigarette 2019-02-01 2019-02-01 NPI:[id number] pack-years 00:00:00 00:00:00 1 Tobacco Comment 2018-05-29 2018-05-29 1 pack per week; NPI :[id number] 00:00:00 00:00:00 quit 2015 1 History of tobacco 2015-06-21 Cigarette Smoker NPI:[id number] use 00:00:00 1 Sex [birth year] At [birth year] NPI:[id number] 1878 00:00:00 00:00:00 1 Smoking Status Start Date Stop Date Source Former smoker 2019-02-01 00:00:00 2019-02-01 00:00:00 NPI:1831 [id number] Medications Ordered Filled Start Stop Current Ordering Indication Dosage Frequency Signature Comments Components Source Medication Medication Date Date Medication? Clinician (SIG) Name Name vitamin 2018-04 Yes 500ug Take 500 NPI:1 83 B-12 500 0-18 mcg by [id number] mcg tablet 16:20: mouth 58 daily. vitamin C 2019- Yes 100mg Take 100 NPI :183 100 mg 0-18 mg by [id number] tablet 16:20: mouth 58 daily. vitamin 2019- Yes 500ug Take 500 NPI:1 83 B-12 500 0-18 mcg by [id number] mcg tablet 16:20: mouth 58 daily. vitamin C 2019- Yes 100mg Take 100 NPI :183 100 mg 0-18 mg by [id number] tablet 16:20: mouth 58 daily. vitamin 2019- Yes 500ug Take 500 NPI:1 83 B-12 500 0-18 mcg by [id number] mcg tablet 16:20: mouth 58 daily. vitamin C 2018-04 Yes 100mg Take 100 NPI :183 100 mg 0-18 mg by [id number] tablet 16:20: mouth 58 daily. vitamin 2019- Yes 500ug Take 500 NPI:1 83 B-12 500 9-17 mcg by [id number] mcg tablet 19:19: mouth 55 daily. vitamin C Yes 100mg Take 100 NPI :183 100 mg 9-17 mg by [id number] tablet 19:19: mouth 55 daily. medroxyPROG Yes 150mg 150 mg, DIRECTOR PUBLIC POLICY I:183 ESTERone 9-17 Intramuscu 48261 81 (DEPO-PROVE 15:15: lar, RA) 00 [id number], injection First dose 150 mg on Mon01/01/19 at 1015, Until Discontinu ed, Routine butalbital- 2019- No 2{tbl} 2 tablet, NPI:183 acetaminoph -01-01 Oral, [id number] 1 en-caff 14:45: 13:52 ONCE, 1 (ESGIC) 00 :00 dose, e 50-325-40 01/01/19 at mg tablet 2 0945, tablet Routine HYDROcodone 2018- 2019- No 1{tbl} 1 tablet, NPI:183 -acetaminop -01 01- Oral, [id number] 1 hen (NORCO 10:00: 08:55 ONCE, 1 5) 5-325 mg 00 :00 dose, Tue tablet 1 01/01/19 at tablet 0500, Routine HYDROcodone 2019- No 1{tbl} 1 tablet, NPI:183 -acetaminop 01-01- Oral, 118196 1 hen (NORCO 06:45: 05:56 ONCE, 1 5) 5-325 mg 00 :00 dose, Tue tablet 1 01/01/19 at tablet 0145, Routine D5W 0.45% 2019-0 Yes 1000mL at 100 NPI: 183 NaCl -17 mL/hr, [id number] (1/2NS) IV 04:15: 1,000 mL, infusion 00 IV 1,000 mL Infusion, CONTINUOUS , Starting Mon12/31/18 at 2315, Until Discontinu ed, SUSI magnesium 2019-0 2019- No 2g/h 2 g/hr (25 N PI:183 sulfate in 01-01 mL/hr), at 13 79550 LR 40 04:15: 16:14 25 mL/hr, gram/500 mL 00 :00 IV IV Solution Infusion, CONTINUOUS , Starting Mon12/31/18 at 2315, Until 01/01/19 at 1114, SUSI calcium 2019-0 Yes 1000mg 1,000 mg, NPI :183 gluconate - Slow IV [id number] 100 mg/mL 04:07: Push, PRN (10%) 00 - SEE injection INSTRUCTIO 1,000 mg NS, Starting Mon12/31/18 at 2307, Until Discontinu ed, Routine, magnesium toxicity magnesium 2019-0 Yes 4g 32 mEq (4 NPI :183 sulfate 4 9-17 g), Slow 590167 1 mEq/mL (50 04:07: IV Push, %) 00 PRN - SEE injection INSTRUCTIO 32 mEq NS, Starting Mon12/31/18 at 2307, Until Discontinu ed, Routine, For seizure activity (patient not on magnesium sulfate) magnesium 2019-0 Yes 2g 16 mEq (2 NPI :183 sulfate 4 9-17 g), Slow 239948 1 mEq/mL (50 04:07: IV Push, %) 00 PRN - SEE injection INSTRUCTIO 16 mEq NS, 2 doses, Starting Mon12/31/18 at 2307, Until Discontinu ed, Routine, For seizure activity (patient already on magnesium sulfate) HYDROcodone 2019-0 Yes [id number] 1{tbl} Take 1 NPI:183 -acetaminop - tablet by 131 8781 hen 5-325 00:00: mouth mg tablet 00 every 6 (six) hours as needed for Pain (scale 4-6). hydroCHLORO 2019-0 Yes [id number] 50mg Take 1 NPI:183 thiazide 50 9-17 tablet by 131 8781 mg tablet 00:00: mouth 00 daily. magnesium 2018- 2019- No 4g 32 mEq (4 DIRECTOR PUBLIC POLICY I:183 sulfate 4 12-29- g), IV 9010569 mEq/mL (50 05:15: 04:48 Piggyback, %) 00 :00 ONCE, 1 injection dose, Sat 32 mEq 12/29/18 at 0015, STAT furosemide 2019- No 40mg 40 mg, IV N PI:183 (LASIX) 12-29 Push, [id number] injection 04:45: 04:41 ONCE, 1 40 mg 00 :00 dose, 12/28/18 at 2345, SUSI ondansetron 2019- No 4mg 4 mg, Slow NPI:183 (ZOFRAN 12-29 IV Push, [id number] (PF)) 02:30: 02:09 ONCE, 1 injection 4 00 :00 dose, Fri mg 12/28/18 at 2130, SUSI morpHINE 2019- No 4mg 4 mg, Slow DIRECTOR PUBLIC POLICY I:183 injection 4 12-29 IV Push, 131 8781 mg 02:30: 02:09 ONCE, 1 00 :00 dose, 12/28/18 at 2130, STAT furosemide 2018-0 Yes [id number] 40mg Take 1 NPI:183 (LASIX) 40 9-14 tablet by 1318 781 mg tablet 00:00: mouth 00 daily. hydrALAZINE 2019-0 Yes [id number] 10mg Take 1 NPI:183 10 mg 9-14 tablet by [id number] tablet 00:00: mouth 00 every 6 (six) hours. furosemide 2019-0 Yes [id number] 40mg Take 1 NPI:183 (LASIX) 40 9-14 tablet by 1318 781 mg tablet 00:00: mouth 00 daily. hydrALAZINE 2019-0 Yes [id number] 10mg Take 1 NPI:183 10 mg 9-14 tablet by 8013789 tablet 00:00: mouth 00 every 6 (six) hours. furosemide 2019-0 Yes [id number] 40mg Take 1 NPI:183 (LASIX) 40 9-14 tablet by 1318 781 mg tablet 00:00: mouth 00 daily. hydrALAZINE 2019-0 Yes [id number] 10mg Take 1 NPI:183 10 mg 9-14 tablet by [id number] tablet 00:00: mouth 00 every 6 (six) hours. furosemide 2019-0 Yes [id number] 40mg Take 1 NPI:183 (LASIX) 40 9-14 tablet by 1318 781 mg tablet 00:00: mouth 00 daily. hydrALAZINE 2019-0 Yes [id number] 10mg Take 1 NPI:183 10 mg 9-14 tablet by [id number] tablet 00:00: mouth 00 every 6 (six) hours. furosemide 2019-0 2019- No [id number] 40mg Take 1 NPI:183 (LASIX) 40 9-14 09-17 tablet by 131 8781 mg tablet 00:00: 00:00 mouth 00 :00 daily. hydrALAZINE 2019-0 2019- No [id number] 10mg Take 1 NPI:183 10 mg 9-14 09-17 tablet by [id number] tablet 00:00: 00:00 mouth 00 :00 every 6 (six) hours. vitamin 2019-0 Yes 500ug Take 500 NPI:1 83 B-12 500 9-09 mcg by 1506216 mcg tablet 18:49: mouth 42 daily. vitamin C 2019-0 Yes 100mg Take 100 NPI :183 100 mg 9-09 mg by [id number] tablet 18:49: mouth 42 daily. vitamin 2019-0 Yes 500ug Take 500 NPI:1 83 B-12 500 9-09 mcg by 9106642 mcg tablet 18:49: mouth 42 daily. vitamin C 2019-0 Yes 100mg Take 100 NPI :183 100 mg 9-09 mg by [id number] tablet 18:49: mouth 42 daily. vitamin 2019-0 Yes 500ug Take 500 NPI:1 83 B-12 500 9-09 mcg by [id number] mcg tablet 18:49: mouth 42 daily. vitamin C 2019-0 Yes 100mg Take 100 NPI :183 100 mg 9-09 mg by [id number] tablet 18:49: mouth 42 daily. vitamin 2019-0 Yes 500ug Take 500 NPI:1 83 B-12 500 9-09 mcg by 4362300 mcg tablet 18:49: mouth 42 daily. vitamin C 2019-0 Yes 100mg Take 100 NPI :183 100 mg 9-09 mg by [id number] tablet 18:49: mouth 42 daily. vitamin 2019-0 Yes 500ug Take 500 NPI:1 83 B-12 500 9-09 mcg by [id number] mcg tablet 18:49: mouth 42 daily. vitamin C 2019-0 Yes 100mg Take 100 NPI :183 100 mg 9-09 mg by [id number] tablet 18:49: mouth 42 daily. vitamin 2019-0 Yes 500ug Take 500 NPI:1 83 B-12 500 9-09 mcg by [id number] mcg tablet 18:49: mouth 42 daily. vitamin C 2019-0 Yes 100mg Take 100 NPI :183 100 mg 9-09 mg by [id number] tablet 18:49: mouth 42 daily. rho(D) 2019-0 Yes 300ug 300 mcg, NPI:18 3 immune 12-24 Intramuscu 2300616 globulin 06:27: lar, ONCE, (RHOGAM) 23 For 1 syringe 300 dose, mcg Conditiona l, Routine diphenhydrA 2019-0 Yes 25mg 25 mg, NPI: 183 MINE 12-24 Oral, [id number] (BENADRYL) 06:27: Q6HPRN, tablet 25 19 Starting mg 12/24/18 at 0127, Until Discontinu ed, Routine, Sleep, Itching ondansetron 2019-0 Yes 4mg 4 mg, Slow NPI:183 (ZOFRAN - IV Push, [id number] (PF)) 06:27: Q8HPRN, injection 4 19 Starting mg 12/24/18 at 0127, Until Discontinu ed, Routine, Nausea and Vomiting (N/V) bisacodyl 2019-0 Yes 10mg 10 mg, NPI:18 3 (DULCOLAX) 12-24 Rectal, [id number] 1 suppository 06:27: QDAILYPRN, 10 mg 19 Starting 12/24/18 at 0127, Until Discontinu ed, Routine, Constipati on simethicone 2019-0 Yes 160mg 160 mg, DIRECTOR PUBLIC POLICY I:183 (GAS 12-24 Oral, [id number] RELIEF) 06:27: PC+HSPRN, chewable 19 Starting tablet 160 12/24/18 mg at 0127, Until Discontinu ed, Routine, Gas docusate Yes 240mg 240 mg, NPI:1 83 calcium 9-09 Oral, [id number] (SURFAK) 06:27: QDAILYPRN, capsule 240 19 Starting mg Mon12/24/18 at 0127, Until Discontinu ed, Routine, Constipati on magnesium Yes 30mL 30 mL, NPI:18 3 hydroxide 9-09 Oral, [id number] (MILK OF 06:27: QDAILYPRN, MAGNESIA) 19 Starting 400 mg/5 mL Mon12/24/18 suspension at 0127, 30 mL Until Discontinu ed, Routine, Constipati on HYDROcodone Yes 1{tbl} 1 tablet, NPI:183 -acetaminop 9-09 Oral, 2479125 hen (NORCO) 05:07: Q6HPRN, 10-325 mg 35 Starting tablet 1 Mon12/24/18 tablet at 0007, Until Discontinu ed, Routine, Pain (scale 7-10) docusate Yes [id number] 240mg Take 1 N PI:183 calcium 240 9-09 capsule by 13 45280 mg capsule 00:00: mouth once 00 daily as needed for Constipati on. HYDROcodone Yes [id number] 1{tbl} Take 1 NPI:183 -acetaminop 9-09 tablet by 131 8781 hen 5-325 00:00: mouth mg tablet 00 every 6 (six) hours as needed for Pain (scale 4-6) (If uncontroll ed by Ibuprofen) . simethicone Yes [id number] 160mg Take 2 NPI:183 80 mg 9-09 tablets by [id number] chewable 00:00: mouth tablet 00 after meals and at bedtime as needed for Gas. docusate Yes [id number] 240mg Take 1 N PI:183 calcium 240 9-09 capsule by 13 16008 mg capsule 00:00: mouth once 00 daily as needed for Constipati on. HYDROcodone Yes [id number] 1{tbl} Take 1 NPI:183 -acetaminop 9-09 tablet by 131 8781 hen 5-325 00:00: mouth mg tablet 00 every 6 (six) hours as needed for Pain (scale 4-6) (If uncontroll ed by Ibuprofen) . simethicone Yes [id number] 160mg Take 2 NPI:183 80 mg 9-09 tablets by 4281352 chewable 00:00: mouth tablet 00 after meals and at bedtime as needed for Gas. docusate 0 Yes [id number] 240mg Take 1 N PI:183 calcium 240 9-09 capsule by 13 54265 mg capsule 00:00: mouth once 00 daily as needed for Constipati on. HYDROcodone 0 Yes [id number] 1{tbl} Take 1 NPI:183 -acetaminop 9-09 tablet by 131 8781 hen 5-325 00:00: mouth mg tablet 00 every 6 (six) hours as needed for Pain (scale 4-6) (If uncontroll ed by Ibuprofen) . simethicone Yes [id number] 160mg Take 2 NPI:183 80 mg 9-09 tablets by [id number] chewable 00:00: mouth tablet 00 after meals and at bedtime as needed for Gas. docusate Yes [id number] 240mg Take 1 N PI:183 calcium 240 9-09 capsule by 13 97510 mg capsule 00:00: mouth once 00 daily as needed for Constipati on. HYDROcodone 0 Yes [id number] 1{tbl} Take 1 NPI:183 -acetaminop 9-09 tablet by 131 8781 hen 5-325 00:00: mouth mg tablet 00 every 6 (six) hours as needed for Pain (scale 4-6) (If uncontroll ed by Ibuprofen) . simethicone Yes [id number] 160mg Take 2 NPI:183 80 mg 9-09 tablets by [id number] chewable 00:00: mouth tablet 00 after meals and at bedtime as needed for Gas. docusate 0 Yes [id number] 240mg Take 1 N PI:183 calcium 240 9-09 capsule by 13 39612 mg capsule 00:00: mouth once 00 daily as needed for Constipati on. HYDROcodone 0 Yes [id number] 1{tbl} Take 1 NPI:183 -acetaminop 9-09 tablet by 131 8781 hen 5-325 00:00: mouth mg tablet 00 every 6 (six) hours as needed for Pain (scale 4-6) (If uncontroll ed by Ibuprofen) . simethicone 0 Yes [id number] 160mg Take 2 NPI:183 80 mg 9-09 tablets by [id number] chewable 00:00: mouth tablet 00 after meals and at bedtime as needed for Gas. docusate 2019-0 Yes [id number] 240mg Take 1 N PI:183 calcium 240 9-09 capsule by 13 78756 mg capsule 00:00: mouth once 00 daily as needed for Constipati on. HYDROcodone 2019-0 Yes [id number] 1{tbl} Take 1 NPI:183 -acetaminop 9-09 tablet by 131 8781 hen 5-325 00:00: mouth mg tablet 00 every 6 (six) hours as needed for Pain (scale 4-6) (If uncontroll ed by Ibuprofen) . simethicone Yes [id number] 160mg Take 2 NPI:183 80 mg 9-09 tablets by [id number] chewable 00:00: mouth tablet 00 after meals and at bedtime as needed for Gas. docusate 2019-0 Yes [id number] 240mg Take 1 N PI:183 calcium 240 9-09 capsule by 13 74341 mg capsule 00:00: mouth once 00 daily as needed for Constipati on. simethicone Yes [id number] 160mg Take 2 NPI:183 80 mg 9-09 tablets by [id number] chewable 00:00: mouth tablet 00 after meals and at bedtime as needed for Gas. HYDROcodone 2019- No [id number] 1{tbl} Take 1 NPI:183 -acetaminop -12 24-17 tablet by 13 18681 hen 5-325 00:00: 00:00 mouth mg tablet 00 :00 every 6 (six) hours as needed for Pain (scale 4-6) (If uncontroll ed by Ibuprofen) . bacitracin 2019-0 Yes Topical NPI: 183 500 unit/g 12-23 (Apply To 1318 781 ointment 30 21:00: Affected g tube 00 Areas), QID, First dose on 12/23/18 at 1600, Until Discontinu ed, Routine tranexamic 2019- No 1000mg 1,000 mg, NPI:183 acid 12-22- IV [id number] (CYKLOKAPRO 15:17: 23:29 Piggyback, N) 1,000 mg 00 :00 Q8H ABX, 7 in NaCl doses, 0.9% (NS) First dose 250 mL on Sat piggyback 12/22/18 at 1030, Last dose on Mon12/24/18 at 1030, 250 mL sennosides 2019- No 8.6mg 8.6 mg, DIRECTOR PUBLIC POLICY I:183 (SENOKOT) 12-22 Oral, [id number] tablet 8.6 14:00: 06:27 DAILY, mg 00 :24 First dose on 12/22/18 at 0900, Until Discontinu ed, Routine docusate 2019- No 100mg 100 mg, NPI: 183 (COLACE) 12-22 Oral, [id number] capsule 100 14:00: 06:27 DAILY, mg 00 :24 First dose on 12/22/18 at 0900, Until Discontinu ed, Routine ondansetron Yes 4mg 4 mg, Slow NPI:183 (ZOFRAN 12-22 IV Push, [id number] (PF)) 13:30: Q6HPRN, injection 4 57 Starting mg 12/22/18 at 0830, Until Discontinu ed, Routine, Nausea and Vomiting (N/V) HYDROcodone 2019- No 2{tbl} 2 tablet, NPI:183 -acetaminop 12-22 Oral, [id number] 1 hen (NORCO 13:00: 05:07 Q4HPRN, 5) 5-325 mg 00 :52 Starting tablet 2 12/22/18 tablet at 0800, Until Mon12/24/18 at 0007, Routine, Pain (scale 7-10), If uncontroll ed by Ibuprofen coagulation 2019- No 89073pg 10,000 NPI:183 factor viia 12-22 mcg, Slow 13 42925 recomb 12:00: 13:56 IV Push, (NOVOSEVEN) 00 :00 ONCE, 1 injection dose, Sat 10,000 mcg 12/22/18 at 0700, SUSI
Us e approved by (Faculty and pager): Suresh SAUNDERS , [id number], HEMATOLOGY /ONCOLOGY HYDROcodone Yes 1{tbl} 1 tablet, NPI:183 -acetaminop 12-22 Oral, [id number] hen (NORCO 08:21: Q6HPRN, 5) 5-325 mg 28 Starting tablet 1 12/22/18 tablet at 0321, Until Discontinu ed, Routine, Pain (scale 4-6), If uncontroll ed by Ibuprofen HYDROcodone 2019- No 2{tbl} 2 tablet, NPI:183 -acetaminop 12-22 09-07 Oral, 857179 1 hen (NORCO 08:21: 12:50 Q6HPRN, 5) 5-325 mg 28 :21 Starting tablet 2 12/22/18 tablet at 0321, Until 12/22/18 at 0750, Routine, Pain (scale 7-10), If uncontroll ed by Ibuprofen ondansetron 2019- No 4mg 4 mg, Slow NPI:183 (ZOFRAN 12-22- IV Push, [id number] (PF)) 07:15: 07:00 ONCE, 1 injection 4 00 :00 dose, Sat mg 12/22/18 at 0215, Routine coagulation 2019- No 23337ps 10,000 NPI:183 factor viia 12-22- mcg, Slow 13 13423 recomb 07:15: 06:54 IV Push, (NOVOSEVEN) 00 :00 ONCE, 1 injection dose, Sat 10,000 mcg 12/22/18 at 0215, Routine
Use approved by (Faculty and pager): Suresh SAUNDERS [id number], HEMATOLOGY /ONCOLOGY hydrocortis Yes 25mg 25 mg, NPI: 183 one 12-22 Rectal, [id number] (ANUSOL-HC) 04:10: BIDPRN, suppository 37 Starting 25 mg 12/21/18 at 2310, Until Discontinu ed, Routine, Rectal itching/pa in coagulation 2019- No 9000ug 9,000 mcg, NPI:183 factor viia 12-22- Slow IV 1318 781 recomb 02:45: 02:13 Push, (NOVOSEVEN) 00 :00 ONCE, 1 injection dose, Fri 9,000 mcg 12/21/18 at 2145, Routine
Use approved by (Faculty and pager): Suresh SAUNDERS [id number], HEMATOLOGY /ONCOLOGY coagulation 2018- No [id number] 10,000 NPI:183 factor viia 12-21 mcg, Slow 13 39580 recomb 20:00: 20:27 IV Push, (NOVOSEVEN) 00 :00 ONCE, 1 injection dose, Fri 10,000 mcg 12/21/18 at 1500, SUSI
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
Us e approved by (Faculty and pager): Suresh SAUNDERS [phone], HEMATOLOGY /ONCOLOGY LR 1000 mL 2018- No at 125 NPI: 183 + oxytocin 12-21 09-07 mL/hr, IV 131 8781 20 units IV 17:00: 16:59 Infusion, Solution 00 :00 CONTINUOUS , Starting Mon12/21/18 at 1200, Until 12/22/18 at 1159, SUSI morpHINE 2 2018- No Slow IV NPI :183 mg/mL LOAD 12-21 Push, [id number] & RESCUE 16:52: 06:27 Routine INJECTION 59 :24 SYRG lactated 0 Yes 1000mL at 75 NPI:18 3 ringers IV 9-06 mL/hr, [id number] infusion 16:30: 1,000 mL, 1,000 mL 00 IV Infusion, CONTINUOUS , Starting 12/21/18 at 1130, Until Discontinu ed, Routine, PACU morpHINE 2018- Yes 2mg 2 mg, Slow NPI :183 injection 2 12-21 IV Push, 1318 781 mg 16:26: Q5MIN PRN, 05 5 doses, Starting Mon12/21/18 at 1126, Until Discontinu ed, Routine, Pain (scale 4-6), PACU ondansetron 2019-0 2019- No 4mg 4 mg, Slow NPI:183 (ZOFRAN 12-21 IV Push, [id number] (PF)) 16:26: 02:53 PRN, 1 injection 4 05 :00 dose, mg Starting Mon12/21/18 at 1126, Until Discontinu ed, Routine, Nausea and Vomiting (N/V), PACU 2018- No 1{tbl} 1 tablet, N PI:183 vitamin 12-21 Oral, [id number] w/FA 14:00: 06:27 DAILY, (PRENATABS 00 :24 First dose RX) tablet on Mon 1 tablet 12/21/18 at 0900, Until Discontinu ed, Routine diphenhydrA 2018- No 25mg 25 mg, NPI :183 MINE 12-21 Slow IV [id number] (BENADRYL) 14:00: 13:46 Push, injection 00 :00 ONCE, 1 25 mg dose, Mon12/21/18 at 0900, Routine lactated 2018- No 500mL at 999 NPI:1 83 ringers IV 12-21 mL/hr, 500 13 78804 infusion 12:30: 12:30 mL, IV 500 mL 00 :00 Infusion, ONCE, 1 dose, Mon12/21/18 at 0730, Routine gentamicin 2018- No 5mg/kg 388 mg (5 NPI:183 388 mg in 12-21 mg/kg [id number] NaCl 0.9% 11:49: 15:46 ?77.6 kg (NS) 250 mL 07 :00 Adjusted IV infusion weight), IV Infusion, O.R. HOLDING ONCE, 1 dose, Starting Mon12/21/18 at 0649, Until Discontinu ed, 250 mL
Reas on for Anti-Infec tive: Surgical Prophylaxi s
Costa rgical Prophylaxi s: FACTORY REPRESENTATIVE
Duration of therapy: within 24 hours of surgery clindamycin 2018- No 900mg 900 mg, IV NPI:183 in 5 % 12-21 Piggyback, [id number] 1 dextrose 11:23: 15:17 O.R. (CLEOCIN) 04 :00 HOLDING 900 mg/50 ONCE, 1 mL dose, Piggyback Starting 900 mg Mon12/21/18 at 0623, Until Discontinu ed, 50 mL
Facu lty member approving Restricted medication : OB FACULTY
Reason for Anti-Infec tive: Surgical Prophylaxi s
Surgi frank Prophylaxi s: FACTORY REPRESENTATIVE
Duration of therapy: within 24 hours of surgery
Restricte d use approved by: FACTORY REPRESENTATIVE FACULTY sodium 2019- No 30mL 30 mL, NPI:183 citrate-cit 12-21 Oral, [id number] 1 marino acid 11:22: 14:47 PRE-PROCED (BICITRA) 44 :00 URE ONCE, 500-334 1 dose, mg/5 mL Starting solution 30 Mon12/21/18 mL at 0622, Until Discontinu ed, Routine, Surgery docusate 2019- No 240mg 240 mg, NPI: 183 calcium 12-21 Oral, [id number] (SURFAK) 01:45: 06:27 QHSPRN, capsule 240 30 :24 Starting mg Jeny 12/20/18 at 2045, Until 12/24/18 at 0127, Routine, Constipati on vitamin 2018-0 Yes 500ug Take 500 NPI:1 83 B-12 500 8-19 mcg by [id number] mcg tablet 22:25: mouth 38 daily. vitamin C 2018-0 Yes 100mg Take 100 NPI :183 100 mg 8-19 mg by [id number] tablet 22:25: mouth 38 daily. vitamin 2019-0 Yes 500ug Take 500 NPI:1 83 B-12 500 8-19 mcg by [id number] mcg tablet 22:25: mouth 38 daily. vitamin C 2019-0 Yes 100mg Take 100 NPI :183 100 mg 8-19 mg by [id number] tablet 22:25: mouth 38 daily. vitamin 2019-0 Yes 500ug Take 500 NPI:1 83 B-12 500 8-19 mcg by [id number] mcg tablet 22:25: mouth 38 daily. vitamin C 2019-0 Yes 100mg Take 100 NPI :183 100 mg 8-19 mg by [id number] tablet 22:25: mouth 38 daily. vitamin 2019-0 Yes 500ug Take 500 NPI:1 83 B-12 500 8-19 mcg by [id number] mcg tablet 22:25: mouth 38 daily. vitamin C 2019-0 Yes 100mg Take 100 NPI :183 100 mg 8-19 mg by [id number] tablet 22:25: mouth 38 daily. vitamin 2019-0 Yes 500ug Take 500 NPI:1 83 B-12 500 8-19 mcg by [id number] mcg tablet 22:25: mouth 38 daily. vitamin C 2019-0 Yes 100mg Take 100 NPI :183 100 mg 8-19 mg by [id number] tablet 22:25: mouth 38 daily. vitamin 2019-0 Yes 500ug Take 500 NPI:1 83 B-12 500 8-19 mcg by [id number] mcg tablet 22:25: mouth 38 daily. vitamin C 2019-0 Yes 100mg Take 100 NPI :183 100 mg 8-19 mg by [id number] tablet 22:25: mouth 38 daily. vitamin 2019-0 Yes 500ug Take 500 NPI:1 83 B-12 500 8-19 mcg by [id number] mcg tablet 22:25: mouth 38 daily. vitamin C 2019-0 Yes 100mg Take 100 NPI :183 100 mg 8-19 mg by [id number] tablet 22:25: mouth 38 daily. vitamin 2019-0 Yes 500ug Take 500 NPI:1 83 B-12 500 8-19 mcg by [id number] mcg tablet 22:25: mouth 38 daily. vitamin C 2019-0 Yes 100mg Take 100 NPI :183 100 mg 8-19 mg by [id number] tablet 22:25: mouth 38 daily. vitamin 2019-0 Yes 500ug Take 500 NPI:1 83 B-12 500 8-19 mcg by [id number] mcg tablet 22:25: mouth 38 daily. vitamin C 2019-0 Yes 100mg Take 100 NPI :183 100 mg 8-19 mg by [id number] tablet 22:25: mouth 38 daily. vitamin 2019-0 Yes 500ug Take 500 NPI:1 83 B-12 500 8-19 mcg by [id number] mcg tablet 22:25: mouth 38 daily. vitamin C 2019-0 Yes 100mg Take 100 NPI :183 100 mg 8-19 mg by [id number] tablet 22:25: mouth 38 daily. vitamin 2019-0 Yes 500ug Take 500 NPI:1 83 B-12 500 8-19 mcg by [id number] mcg tablet 22:25: mouth 38 daily. vitamin C 2019-0 Yes 100mg Take 100 NPI :183 100 mg 8-19 mg by [id number] tablet 22:25: mouth 38 daily. vitamin C 2019-0 Yes 100mg Take 100 NPI :183 100 mg 8-08 mg by [id number] tablet 13:53: mouth 47 daily. vitamin C 2019-0 Yes 100mg Take 100 NPI :183 100 mg 8-08 mg by [id number] tablet 13:53: mouth 47 daily. vitamin C 2019-0 Yes 100mg Take 100 NPI :183 100 mg 8-08 mg by [id number] tablet 13:53: mouth 47 daily. vitamin C 2019-0 Yes 100mg Take 100 NPI :183 100 mg 8-08 mg by [id number] tablet 13:53: mouth 47 daily. vitamin C 2019-0 Yes 100mg Take 100 NPI :183 100 mg 8-08 mg by [id number] tablet 13:53: mouth 47 daily. vitamin C 2019-0 Yes 100mg Take 100 NPI :183 100 mg 8-08 mg by [id number] tablet 13:53: mouth 47 daily. vitamin C 2019-0 Yes 100mg Take 100 NPI :183 100 mg 8-08 mg by [id number] tablet 13:53: mouth 47 daily. vitamin C 2019-0 Yes 100mg Take 100 NPI :183 100 mg 8-08 mg by [id number] tablet 13:53: mouth 47 daily. vitamin 2019-0 Yes 500ug Take 500 NPI:1 83 B-12 500 8-08 mcg by [id number] mcg tablet 13:53: mouth 46 daily. vitamin 2019-0 Yes 500ug Take 500 NPI:1 83 B-12 500 8-08 mcg by [id number] mcg tablet 13:53: mouth 46 daily. vitamin 2019-0 Yes 500ug Take 500 NPI:1 83 B-12 500 8-08 mcg by [id number] mcg tablet 13:53: mouth 46 daily. vitamin 2019-0 Yes 500ug Take 500 NPI:1 83 B-12 500 8-08 mcg by [id number] mcg tablet 13:53: mouth 46 daily. vitamin 2019-0 Yes 500ug Take 500 NPI:1 83 B-12 500 8-08 mcg by [id number] mcg tablet 13:53: mouth 46 daily. vitamin 2019-0 Yes 500ug Take 500 NPI:1 83 B-12 500 8-08 mcg by [id number] mcg tablet 13:53: mouth 46 daily. vitamin 2019-0 Yes 500ug Take 500 NPI:1 83 B-12 500 8-08 mcg by [id number] mcg tablet 13:53: mouth 46 daily. vitamin 2019-0 Yes 500ug Take 500 NPI:1 83 B-12 500 8-08 mcg by [id number] mcg tablet 13:53: mouth 46 daily. vitamin 2019-0 Yes 500ug Take 500 NPI:1 83 B-12 500 8-05 mcg by [id number] mcg tablet 21:31: mouth 26 daily. vitamin C 2019-0 Yes 100mg Take 100 NPI :183 100 mg 8-05 mg by [id number] tablet 21:31: mouth 26 daily. acetaminoph 2019-0 Yes 650mg 650 mg, [employer] I:183 en 8-05 Oral, [id number] (TYLENOL) 19:55: Q6HPRN, tablet 650 28 Starting mg 11/19/18 at 1455, Until Discontinu ed, Routine, Pain (scale 1-3), Pain (scale 4-6) vitamin 2019-0 Yes 500ug Take 500 NPI:1 83 B-12 500 7-15 mcg by [id number] mcg tablet 23:57: mouth 18 daily. vitamin C 2019-0 Yes 100mg Take 100 NPI :183 100 mg 7-15 mg by [id number] tablet 23:57: mouth 18 daily. vitamin 2019-0 Yes 500ug Take 500 NPI:1 83 B-12 500 7-15 mcg by [id number] mcg tablet 23:57: mouth 18 daily. vitamin C 2019-0 Yes 100mg Take 100 NPI :183 100 mg 7-15 mg by [id number] tablet 23:57: mouth 18 daily. vitamin 2019-0 Yes 500ug Take 500 NPI:1 83 B-12 500 7-15 mcg by [id number] mcg tablet 23:57: mouth 18 daily. vitamin C 2019-0 Yes 100mg Take 100 NPI :183 100 mg 7-15 mg by [id number] tablet 23:57: mouth 18 daily. vitamin 2019-0 Yes 500ug Take 500 NPI:1 83 B-12 500 7-15 mcg by [id number] mcg tablet 23:57: mouth 18 daily. vitamin C 2019-0 Yes 100mg Take 100 NPI :183 100 mg 7-15 mg by [id number] tablet 23:57: mouth 18 daily. vitamin 2019-0 Yes 500ug Take 500 NPI:1 83 B-12 500 7-15 mcg by [id number] mcg tablet 23:57: mouth 18 daily. vitamin C 2019-0 Yes 100mg Take 100 NPI :183 100 mg 7-15 mg by [id number] tablet 23:57: mouth 18 daily. vitamin 2019-0 Yes 500ug Take 500 NPI:1 83 B-12 500 7-15 mcg by [id number] mcg tablet 23:57: mouth 18 daily. vitamin C 2019-0 Yes 100mg Take 100 NPI :183 100 mg 7-15 mg by [id number] tablet 23:57: mouth 18 daily. vitamin 2019-0 Yes 500ug Take 500 NPI:1 83 B-12 500 7-15 mcg by [id number] mcg tablet 23:57: mouth 18 daily. vitamin C 2019-0 Yes 100mg Take 100 NPI :183 100 mg 7-15 mg by [id number] tablet 23:57: mouth 18 daily. vitamin 2019-0 Yes 500ug Take 500 NPI:1 83 B-12 500 7-15 mcg by [id number] mcg tablet 23:57: mouth 18 daily. vitamin C 2019-0 Yes 100mg Take 100 NPI :183 100 mg 7-15 mg by [id number] tablet 23:57: mouth 18 daily. ferrous 2019-0 Yes [id number] 325mg Take 1 [employer] I:183 sulfate 325 7-02 tablet by 131 8781 mg (65 mg 00:00: mouth 2 iron) 00 (two) tablet times daily. ferrous 2019-0 Yes [id number] 325mg Take 1 [employer] I:183 sulfate 325 7-02 tablet by 131 8781 mg (65 mg 00:00: mouth 2 iron) 00 (two) tablet times daily. ferrous 2019-0 Yes [id number] 325mg Take 1 [employer] I:183 sulfate 325 7-02 tablet by 131 8781 mg (65 mg 00:00: mouth 2 iron) 00 (two) tablet times daily. ferrous 2019-0 Yes [id number] 325mg Take 1 [employer] I:183 sulfate 325 7-02 tablet by 131 8781 mg (65 mg 00:00: mouth 2 iron) 00 (two) tablet times daily. ferrous 2019-0 Yes [id number] 325mg Take 1 [employer] I:183 sulfate 325 7-02 tablet by 131 8781 mg (65 mg 00:00: mouth 2 iron) 00 (two) tablet times daily. ferrous 2019-0 Yes [id number] 325mg Take 1 [employer] I:183 sulfate 325 7-02 tablet by 131 8781 mg (65 mg 00:00: mouth 2 iron) 00 (two) tablet times daily. ferrous 2019-0 Yes [id number] 325mg Take 1 [employer] I:183 sulfate 325 7-02 tablet by 131 8781 mg (65 mg 00:00: mouth 2 iron) 00 (two) tablet times daily. ferrous 2019-0 Yes [id number] 325mg Take 1 [employer] I:183 sulfate 325 7-02 tablet by 131 8781 mg (65 mg 00:00: mouth 2 iron) 00 (two) tablet times daily. ferrous 2019-0 Yes [id number] 325mg Take 1 [employer] I:183 sulfate 325 7-02 tablet by 131 8781 mg (65 mg 00:00: mouth 2 iron) 00 (two) tablet times daily. ferrous 2019-0 Yes [id number] 325mg Take 1 [employer] I:183 sulfate 325 7-02 tablet by 131 8781 mg (65 mg 00:00: mouth 2 iron) 00 (two) tablet times daily. ferrous 2018-0 Yes [id number] 325mg Take 1 [employer] I:183 sulfate 325 7-02 tablet by 131 8781 mg (65 mg 00:00: mouth 2 iron) 00 (two) tablet times daily. ferrous 2019-0 Yes [id number] 325mg Take 1 [employer] I:183 sulfate 325 7-02 tablet by 131 8781 mg (65 mg 00:00: mouth 2 iron) 00 (two) tablet times daily. ferrous 2019-0 Yes [id number] 325mg Take 1 [employer] I:183 sulfate 325 7-02 tablet by 131 8781 mg (65 mg 00:00: mouth 2 iron) 00 (two) tablet times daily. ferrous 2019-0 Yes [id number] 325mg Take 1 [employer] I:183 sulfate 325 7-02 tablet by 131 8781 mg (65 mg 00:00: mouth 2 iron) 00 (two) tablet times daily. ferrous 2019-0 Yes [id number] 325mg Take 1 [employer] I:183 sulfate 325 7-02 tablet by 131 8781 mg (65 mg 00:00: mouth 2 iron) 00 (two) tablet times daily. ferrous 2019-0 Yes [id number] 325mg Take 1 [employer] I:183 sulfate 325 7-02 tablet by 131 8781 mg (65 mg 00:00: mouth 2 iron) 00 (two) tablet times daily. ferrous 2018-0 Yes [id number] 325mg Take 1 [employer] I:183 sulfate 325 7-02 tablet by 131 8781 mg (65 mg 00:00: mouth 2 iron) 00 (two) tablet times daily. ferrous 2019-0 Yes [id number] 325mg Take 1 [employer] I:183 sulfate 325 7-02 tablet by 131 8781 mg (65 mg 00:00: mouth 2 iron) 00 (two) tablet times daily. ferrous 2019-0 Yes [id number] 325mg Take 1 [employer] I:183 sulfate 325 7-02 tablet by 131 8781 mg (65 mg 00:00: mouth 2 iron) 00 (two) tablet times daily. ferrous 2019-0 Yes [id number] 325mg Take 1 [employer] I:183 sulfate 325 7-02 tablet by 131 8781 mg (65 mg 00:00: mouth 2 iron) 00 (two) tablet times daily. ferrous 2018-0 Yes [id number] 325mg Take 1 [employer] I:183 sulfate 325 7-02 tablet by 131 8781 mg (65 mg 00:00: mouth 2 iron) 00 (two) tablet times daily. ferrous 2018-0 Yes [id number] 325mg Take 1 [employer] I:183 sulfate 325 7-02 tablet by 131 8781 mg (65 mg 00:00: mouth 2 iron) 00 (two) tablet times daily. ferrous 2019-0 Yes [id number] 325mg Take 1 [employer] I:183 sulfate 325 7-02 tablet by 131 8781 mg (65 mg 00:00: mouth 2 iron) 00 (two) tablet times daily. ferrous 2018-0 Yes [id number] 325mg Take 1 [employer] I:183 sulfate 325 7-02 tablet by 131 8781 mg (65 mg 00:00: mouth 2 iron) 00 (two) tablet times daily. ferrous 2019-0 Yes [id number] 325mg Take 1 [employer] I:183 sulfate 325 7-02 tablet by 131 8781 mg (65 mg 00:00: mouth 2 iron) 00 (two) tablet times daily. ferrous 2019-0 Yes [id number] 325mg Take 1 [employer] I:183 sulfate 325 7-02 tablet by 131 8781 mg (65 mg 00:00: mouth 2 iron) 00 (two) tablet times daily. ferrous 2019-0 Yes [id number] 325mg Take 1 [employer] I:183 sulfate 325 7-02 tablet by 131 8781 mg (65 mg 00:00: mouth 2 iron) 00 (two) tablet times daily. ferrous 2019-0 Yes [id number] 325mg Take 1 [employer] I:183 sulfate 325 7-02 tablet by 131 8781 mg (65 mg 00:00: mouth 2 iron) 00 (two) tablet times daily. ferrous 2019-0 Yes [id number] 325mg Take 1 [employer] I:183 sulfate 325 7-02 tablet by 131 8781 mg (65 mg 00:00: mouth 2 iron) 00 (two) tablet times daily. ferrous 2019-0 Yes [id number] 325mg Take 1 [employer] I:183 sulfate 325 7-02 tablet by 131 8781 mg (65 mg 00:00: mouth 2 iron) 00 (two) tablet times daily. ferrous 2019-0 Yes [id number] 325mg Take 1 [employer] I:183 sulfate 325 7-02 tablet by 131 8781 mg (65 mg 00:00: mouth 2 iron) 00 (two) tablet times daily. ferrous 2019-0 Yes [id number] 325mg Take 1 [employer] I:183 sulfate 325 7-02 tablet by 131 8781 mg (65 mg 00:00: mouth 2 iron) 00 (two) tablet times daily. ferrous 2019-0 Yes [id number] 325mg Take 1 [employer] I:183 sulfate 325 7-02 tablet by 131 8781 mg (65 mg 00:00: mouth 2 iron) 00 (two) tablet times daily. ferrous 2019-0 Yes [id number] 325mg Take 1 [employer] I:183 sulfate 325 7-02 tablet by 131 8781 mg (65 mg 00:00: mouth 2 iron) 00 (two) tablet times daily. ferrous 2019-0 Yes [id number] 325mg Take 1 [employer] I:183 sulfate 325 7-02 tablet by 131 8781 mg (65 mg 00:00: mouth 2 iron) 00 (two) tablet times daily. ferrous 2019-0 Yes [id number] 325mg Take 1 [employer] I:183 sulfate 325 7-02 tablet by 131 8781 mg (65 mg 00:00: mouth 2 iron) 00 (two) tablet times daily. ferrous 2019-0 Yes [id number] 325mg Take 1 [employer] I:183 sulfate 325 7-02 tablet by 131 8781 mg (65 mg 00:00: mouth 2 iron) 00 (two) tablet times daily. ferrous 2019-0 Yes [id number] 325mg Take 1 [employer] I:183 sulfate 325 7-02 tablet by 131 8781 mg (65 mg 00:00: mouth 2 iron) 00 (two) tablet times daily. PNV 67-iron 2019-0 Yes [id number] 1{each} Take 1 NPI:183 ps-folate 4-05 Each by [id number] no.1-dha 00:00: mouth (VITAFOL 00 daily. ULTRA) 29 mg iron- 1 mg-200 mg Cap PNV 67-iron 2019-0 Yes [id number] 1{each} Take 1 NPI:183 ps-folate 4-05 Each by [id number] no.1-dha 00:00: mouth (VITAFOL 00 daily. ULTRA) 29 mg iron- 1 mg-200 mg Cap PNV 67-iron 2019-0 Yes [id number] 1{each} Take 1 NPI:183 ps-folate 4-05 Each by [id number] no.1-dha 00:00: mouth (VITAFOL 00 daily. ULTRA) 29 mg iron- 1 mg-200 mg Cap PNV 67-iron 2019-0 Yes [id number] 1{each} Take 1 NPI:183 ps-folate 4-05 Each by [id number] no.1-dha 00:00: mouth (VITAFOL 00 daily. ULTRA) 29 mg iron- 1 mg-200 mg Cap PNV 67-iron 2019-0 Yes [id number] 1{each} Take 1 NPI:183 ps-folate 4-05 Each by [id number] no.1-dha 00:00: mouth (VITAFOL 00 daily. ULTRA) 29 mg iron- 1 mg-200 mg Cap PNV 67-iron 2019-0 Yes [id number] 1{each} Take 1 NPI:183 ps-folate 4-05 Each by [id number] no.1-dha 00:00: mouth (VITAFOL 00 daily. ULTRA) 29 mg iron- 1 mg-200 mg Cap PNV 67-iron 2019-0 Yes [id number] 1{each} Take 1 NPI:183 ps-folate 4-05 Each by [id number] no.1-dha 00:00: mouth (VITAFOL 00 daily. ULTRA) 29 mg iron- 1 mg-200 mg Cap PNV 67-iron 2019-0 Yes [id number] 1{each} Take 1 NPI:183 ps-folate 4-05 Each by [id number] no.1-dha 00:00: mouth (VITAFOL 00 daily. ULTRA) 29 mg iron- 1 mg-200 mg Cap PNV 67-iron 2019-0 Yes [id number] 1{each} Take 1 NPI:183 ps-folate 4-05 Each by [id number] no.1-dha 00:00: mouth (VITAFOL 00 daily. ULTRA) 29 mg iron- 1 mg-200 mg Cap PNV 67-iron 2019-0 Yes [id number] 1{each} Take 1 NPI:183 ps-folate 4-05 Each by [id number] no.1-dha 00:00: mouth (VITAFOL 00 daily. ULTRA) 29 mg iron- 1 mg-200 mg Cap PNV 67-iron 2019-0 Yes [id number] 1{each} Take 1 NPI:183 ps-folate 4-05 Each by [id number] no.1-dha 00:00: mouth (VITAFOL 00 daily. ULTRA) 29 mg iron- 1 mg-200 mg Cap PNV 67-iron 2019-0 Yes [id number] 1{each} Take 1 NPI:183 ps-folate 4-05 Each by [id number] no.1-dha 00:00: mouth (VITAFOL 00 daily. ULTRA) 29 mg iron- 1 mg-200 mg Cap PNV 67-iron 2019-0 Yes [id number] 1{each} Take 1 NPI:183 ps-folate 4-05 Each by [id number] no.1-dha 00:00: mouth (VITAFOL 00 daily. ULTRA) 29 mg iron- 1 mg-200 mg Cap PNV 67-iron 2019-0 Yes [id number] 1{each} Take 1 NPI:183 ps-folate 4-05 Each by [id number] no.1-dha 00:00: mouth (VITAFOL 00 daily. ULTRA) 29 mg iron- 1 mg-200 mg Cap PNV 67-iron 2019-0 Yes [id number] 1{each} Take 1 NPI:183 ps-folate 4-05 Each by [id number] no.1-dha 00:00: mouth (VITAFOL 00 daily. ULTRA) 29 mg iron- 1 mg-200 mg Cap PNV 67-iron 2019-0 Yes [id number] 1{each} Take 1 NPI:183 ps-folate 4-05 Each by [id number] no.1-dha 00:00: mouth (VITAFOL 00 daily. ULTRA) 29 mg iron- 1 mg-200 mg Cap PNV 67-iron 2019-0 Yes [id number] 1{each} Take 1 NPI:183 ps-folate 4-05 Each by [id number] no.1-dha 00:00: mouth (VITAFOL 00 daily. ULTRA) 29 mg iron- 1 mg-200 mg Cap PNV 67-iron 2019-0 Yes [id number] 1{each} Take 1 NPI:183 ps-folate 4-05 Each by [id number] no.1-dha 00:00: mouth (VITAFOL 00 daily. ULTRA) 29 mg iron- 1 mg-200 mg Cap PNV 67-iron 2019-0 Yes [id number] 1{each} Take 1 NPI:183 ps-folate 4-05 Each by [id number] no.1-dha 00:00: mouth (VITAFOL 00 daily. ULTRA) 29 mg iron- 1 mg-200 mg Cap PNV 67-iron 2019-0 Yes [id number] 1{each} Take 1 NPI:183 ps-folate 4-05 Each by [id number] no.1-dha 00:00: mouth (VITAFOL 00 daily. ULTRA) 29 mg iron- 1 mg-200 mg Cap PNV 67-iron 2019-0 Yes [id number] 1{each} Take 1 NPI:183 ps-folate 4-05 Each by [id number] no.1-dha 00:00: mouth (VITAFOL 00 daily. ULTRA) 29 mg iron- 1 mg-200 mg Cap PNV 67-iron 2019-0 Yes [id number] 1{each} Take 1 NPI:183 ps-folate 4-05 Each by [id number] no.1-dha 00:00: mouth (VITAFOL 00 daily. ULTRA) 29 mg iron- 1 mg-200 mg Cap PNV 67-iron 2019-0 Yes [id number] 1{each} Take 1 NPI:183 ps-folate 4-05 Each by [id number] no.1-dha 00:00: mouth (VITAFOL 00 daily. ULTRA) 29 mg iron- 1 mg-200 mg Cap PNV 67-iron 2019-0 Yes [id number] 1{each} Take 1 NPI:183 ps-folate 4-05 Each by [id number] no.1-dha 00:00: mouth (VITAFOL 00 daily. ULTRA) 29 mg iron- 1 mg-200 mg Cap PNV 67-iron 2019-0 Yes [id number] 1{each} Take 1 NPI:183 ps-folate 4-05 Each by [id number] no.1-dha 00:00: mouth (VITAFOL 00 daily. ULTRA) 29 mg iron- 1 mg-200 mg Cap PNV 67-iron 2019-0 Yes [id number] 1{each} Take 1 NPI:183 ps-folate 4-05 Each by [id number] no.1-dha 00:00: mouth (VITAFOL 00 daily. ULTRA) 29 mg iron- 1 mg-200 mg Cap PNV 67-iron 2019-0 Yes [id number] 1{each} Take 1 NPI:183 ps-folate 4-05 Each by [id number] no.1-dha 00:00: mouth (VITAFOL 00 daily. ULTRA) 29 mg iron- 1 mg-200 mg Cap PNV 67-iron 2019-0 Yes [id number] 1{each} Take 1 NPI:183 ps-folate 4-05 Each by [id number] no.1-dha 00:00: mouth (VITAFOL 00 daily. ULTRA) 29 mg iron- 1 mg-200 mg Cap PNV 67-iron 2019-0 Yes [id number] 1{each} Take 1 NPI:183 ps-folate 4-05 Each by [id number] no.1-dha 00:00: mouth (VITAFOL 00 daily. ULTRA) 29 mg iron- 1 mg-200 mg Cap PNV 67-iron 2019-0 Yes [id number] 1{each} Take 1 NPI:183 ps-folate 4-05 Each by [id number] no.1-dha 00:00: mouth (VITAFOL 00 daily. ULTRA) 29 mg iron- 1 mg-200 mg Cap PNV 67-iron 2019-0 Yes [id number] 1{each} Take 1 NPI:183 ps-folate 4-05 Each by [id number] no.1-dha 00:00: mouth (VITAFOL 00 daily. ULTRA) 29 mg iron- 1 mg-200 mg Cap PNV 67-iron 2019-0 Yes [id number] 1{each} Take 1 NPI:183 ps-folate 4-05 Each by [id number] no.1-dha 00:00: mouth (VITAFOL 00 daily. ULTRA) 29 mg iron- 1 mg-200 mg Cap PNV 67-iron 2019-0 Yes [id number] 1{each} Take 1 NPI:183 ps-folate 4-05 Each by [id number] no.1-dha 00:00: mouth (VITAFOL 00 daily. ULTRA) 29 mg iron- 1 mg-200 mg Cap PNV 67-iron 2019-0 Yes [id number] 1{each} Take 1 NPI:183 ps-folate 4-05 Each by [id number] no.1-dha 00:00: mouth (VITAFOL 00 daily. ULTRA) 29 mg iron- 1 mg-200 mg Cap PNV 67-iron 2019-0 Yes [id number] 1{each} Take 1 NPI:183 ps-folate 4-05 Each by [id number] no.1-dha 00:00: mouth (VITAFOL 00 daily. ULTRA) 29 mg iron- 1 mg-200 mg Cap PNV 67-iron 2019-0 Yes [id number] 1{each} Take 1 NPI:183 ps-folate 4-05 Each by [id number] no.1-dha 00:00: mouth (VITAFOL 00 daily. ULTRA) 29 mg iron- 1 mg-200 mg Cap PNV 67-iron 2019-0 Yes [id number] 1{each} Take 1 NPI:183 ps-folate 4-05 Each by [id number] no.1-dha 00:00: mouth (VITAFOL 00 daily. ULTRA) 29 mg iron- 1 mg-200 mg Cap PNV 67-iron 2019-0 Yes [id number] 1{each} Take 1 NPI:183 ps-folate 4-05 Each by [id number] no.1-dha 00:00: mouth (VITAFOL 00 daily. ULTRA) 29 mg iron- 1 mg-200 mg Cap Immunizations Ordered Immunization Filled Immunization Date Status Commen ts Source Name Name TDAP (ADACEL) 2018-10-15 Completed NPI:[id number] 781 VACCINE 00:00:00 TDAP (ADACEL) 2018-10-15 Completed NPI:[id number] 781 VACCINE 00:00:00 TDAP (ADACEL) 2018-10-15 Completed NPI:[id number] 781 VACCINE 00:00:00 TDAP (ADACEL) 2018-10-15 Completed NPI:[id number] 781 VACCINE 00:00:00 TDAP (ADACEL) 2018-10-15 Completed NPI:[id number] 781 VACCINE 00:00:00 TDAP (ADACEL) 2018-10-15 Completed NPI:[id number] 781 VACCINE 00:00:00 TDAP (ADACEL) 2018-10-15 Completed NPI:[id number] 781 VACCINE 00:00:00 TDAP (ADACEL) 2018-10-15 Completed NPI:[id number] 781 VACCINE 00:00:00 TDAP (ADACEL) 2018-10-15 Completed NPI:[id number] 781 VACCINE 00:00:00 TDAP (ADACEL) 2018-10-15 Completed NPI:[id number] 781 VACCINE 00:00:00 TDAP (ADACEL) 2018-10-15 Completed NPI:[id number] 781 VACCINE 00:00:00 TDAP (ADACEL) 2018-10-15 Completed NPI:[id number] 781 VACCINE 00:00:00 TDAP (ADACEL) 2018-10-15 Completed NPI:[id number] 781 VACCINE 00:00:00 TDAP (ADACEL) 2018-10-15 Completed NPI:[id number] 781 VACCINE 00:00:00 TDAP (ADACEL) 2018-10-15 Completed NPI:[id number] 781 VACCINE 00:00:00 TDAP (ADACEL) 2018-10-15 Completed NPI:[id number] 781 VACCINE 00:00:00 TDAP (ADACEL) 2018-10-15 Completed NPI:[id number] 781 VACCINE 00:00:00 TDAP (ADACEL) 2018-10-15 Completed NPI:[id number] 781 VACCINE 00:00:00 TDAP (ADACEL) 2018-10-15 Completed NPI:[id number] 781 VACCINE 00:00:00 TDAP (ADACEL) 2018-10-15 Completed NPI:[id number] 781 VACCINE 00:00:00 TDAP (ADACEL) 2018-10-15 Completed NPI:[id number] 781 VACCINE 00:00:00 TDAP (ADACEL) 2018-10-15 Completed NPI:[id number] 781 VACCINE 00:00:00 TDAP (ADACEL) 2018-10-15 Completed NPI:[id number] 781 VACCINE 00:00:00 TDAP (ADACEL) 2018-10-15 Completed NPI:[id number] 781 VACCINE 00:00:00 TDAP (ADACEL) 2018-10-15 Completed NPI:[id number] 781 VACCINE 00:00:00 TDAP (ADACEL) 2018-10-15 Completed NPI:[id number] 781 VACCINE 00:00:00 TDAP (ADACEL) 2018-10-15 Completed NPI:[id number] 781 VACCINE 00:00:00 TDAP (ADACEL) 2018-10-15 Completed NPI:[id number] 781 VACCINE 00:00:00 TDAP (ADACEL) 2018-10-15 Completed NPI:[id number] 781 VACCINE 00:00:00 TDAP (ADACEL) 2018-10-15 Completed NPI:[id number] 781 VACCINE 00:00:00 TDAP (ADACEL) 2018-10-15 Completed NPI:[id number] 781 VACCINE 00:00:00 TDAP (ADACEL) 2018-10-15 Completed NPI:[id number] 781 VACCINE 00:00:00 TDAP (ADACEL) 2018-10-15 Completed NPI:[id number] 781 VACCINE 00:00:00 TDAP (ADACEL) 2018-10-15 Completed NPI:[id number] 781 VACCINE 00:00:00 TDAP (ADACEL) 2018-10-15 Completed NPI:[id number] 781 VACCINE 00:00:00 TDAP (ADACEL) 2018-10-15 Completed NPI:[id number] 781 VACCINE 00:00:00 TDAP (ADACEL) 2018-10-15 Completed NPI:[id number] 781 VACCINE 00:00:00 TDAP (ADACEL) 2018-10-15 Completed NPI:[id number] 781 VACCINE 00:00:00 Vital Signs Vital Name Observation Time Observation Value Comments Source Systolic blood pressure 2019-01-01 14:00:00 124 mm[Hg] Diastolic blood 2019-01-01 14:00:00 85 mm[Hg] NPI:1 [id number] pressure Heart rate 2019-01-01 14:00:00 60 /min NPI:1831 [id number] Respiratory rate 2019-01-01 14:00:00 18 /min Oxygen saturation in 2019-01-01 14:00:00 98 /min Arterial blood by Pulse oximetry Body temperature 2019-01-01 13:15:00 36.78 Radha Body weight 2019-01-01 03:07:00 101.651 kg NPI:1831 [id number] BMI 2019-01-01 03:07:00 36.17 kg/m2 NPI:1831 [id number] Systolic blood pressure 2019-01-01 14:00:00 124 mm[Hg] Diastolic blood 2019-01-01 14:00:00 85 mm[Hg] NPI:1 [id number] pressure Heart rate 2019-01-01 14:00:00 60 /min NPI:1831 [id number] Respiratory rate 2019-01-01 14:00:00 18 /min Oxygen saturation in 2019-01-01 14:00:00 98 /min Arterial blood by Pulse oximetry Body temperature 2019-01-01 13:15:00 36.78 Radha Body weight 2019-01-01 03:07:00 101.651 kg NPI:1831 [id number] BMI 2019-01-01 03:07:00 36.17 kg/m2 NPI:1831 [id number] Systolic blood pressure 2018-12-31 20:26:00 162 mm[Hg] Diastolic blood 2018-12-31 20:26:00 90 mm[Hg] NPI:1 [id number] pressure Heart rate 2018-12-31 20:21:00 67 /min NPI:1831 [id number] Body temperature 2018-12-31 20:21:00 37.06 Radha Respiratory rate 2018-12-31 20:21:00 16 /min Body height 2018-12-31 20:21:00 167.6 cm NPI:1831 [id number] Body weight 2018-12-31 20:21:00 102.116 kg NPI:1831 [id number] BMI 2018-12-31 20:21:00 36.34 kg/m2 NPI:1831 [id number] Systolic blood pressure 2018-12-31 20:26:00 162 mm[Hg] Diastolic blood 2018-12-31 20:26:00 90 mm[Hg] NPI:1 [id number] pressure Heart rate 2018-12-31 20:21:00 67 /min NPI:1831 [id number] Body temperature 2018-12-31 20:21:00 37.06 Radha Respiratory rate 2018-12-31 20:21:00 16 /min Body height 2018-12-31 20:21:00 167.6 cm NPI:1831 [id number] Body weight 2018-12-31 20:21:00 102.116 kg NPI:1831 [id number] BMI 2018-12-31 20:21:00 36.34 kg/m2 NPI:1831 [id number] Systolic blood pressure 2018-12-29 05:30:00 133 mm[Hg] Diastolic blood 2018-12-29 05:30:00 77 mm[Hg] NPI:1 [id number] pressure Heart rate 2018-12-29 05:30:00 52 /min NPI:1831 116116 Respiratory rate 2018-12-29 05:30:00 15 /min Oxygen saturation in 2018-12-29 05:30:00 98 /min Arterial blood by Pulse oximetry Body temperature 2018-12-29 00:43:00 37.17 Radha Body height 2018-12-29 00:43:00 167.6 cm NPI:1831 740693 Body weight 2018-12-29 00:43:00 108.863 kg NPI:1831 235751 BMI 2018-12-29 00:43:00 38.74 kg/m2 NPI:1831 912025 Systolic blood pressure 2018-12-29 05:30:00 133 mm[Hg] Diastolic blood 2018-12-29 05:30:00 77 mm[Hg] NPI:1 [id number] pressure Heart rate 2018-12-29 05:30:00 52 /min NPI:1831 906871 Respiratory rate 2018-12-29 05:30:00 15 /min Oxygen saturation in 2018-12-29 05:30:00 98 /min Arterial blood by Pulse oximetry Body temperature 2018-12-29 00:43:00 37.17 Radha Body height 2018-12-29 00:43:00 167.6 cm NPI:1831 099051 Body weight 2018-12-29 00:43:00 108.863 kg NPI:1831 801238 BMI 2018-12-29 00:43:00 38.74 kg/m2 NPI:1831 690505 Systolic blood pressure 2018-12-28 18:47:00 172 mm[Hg] Diastolic blood 2018-12-28 18:47:00 90 mm[Hg] NPI:1 [id number] pressure Heart rate 2018-12-28 18:47:00 52 /min NPI:1831 763939 Body temperature 2018-12-28 18:32:00 36.89 Radha Respiratory rate 2018-12-28 18:32:00 16 /min Body height 2018-12-28 18:32:00 165.1 cm NPI:1831 498735 Body weight 2018-12-28 18:32:00 109.118 kg NPI:1831 459159 BMI 2018-12-28 18:32:00 40.03 kg/m2 NPI:1831 464215 Systolic blood pressure 2018-12-28 18:47:00 172 mm[Hg] Diastolic blood 2018-12-28 18:47:00 90 mm[Hg] NPI:1 [id number] pressure Heart rate 2018-12-28 18:47:00 52 /min NPI:1831 035304 Body temperature 2018-12-28 18:32:00 36.89 Radha Respiratory rate 2018-12-28 18:32:00 16 /min Body height 2018-12-28 18:32:00 165.1 cm NPI:1831 514623 Body weight 2018-12-28 18:32:00 109.118 kg NPI:1831 078256 BMI 2018-12-28 18:32:00 40.03 kg/m2 NPI:1831 061297 Body temperature 2018-12-24 13:00:00 36.61 Radha Systolic blood pressure 2018-12-24 09:00:00 119 mm[Hg] Diastolic blood 2018-12-24 09:00:00 79 mm[Hg] NPI:1 [id number] pressure Heart rate 2018-12-24 09:00:00 69 /min NPI:1831 359802 Respiratory rate 2018-12-24 09:00:00 18 /min Oxygen saturation in 2018-12-24 09:00:00 99 /min Arterial blood by Pulse oximetry Body height 2018-12-21 15:30:00 165.1 cm NPI:1831 849154 Body weight 2018-12-21 15:30:00 108.636 kg NPI:1831 439108 BMI 2018-12-21 15:30:00 39.85 kg/m2 NPI:1831 435124 Body temperature 2018-12-24 13:00:00 36.61 Radha Systolic blood pressure 2018-12-24 09:00:00 119 mm[Hg] Diastolic blood 2018-12-24 09:00:00 79 mm[Hg] NPI:1 [id number] pressure Heart rate 2018-12-24 09:00:00 69 /min NPI:1831 638737 Respiratory rate 2018-12-24 09:00:00 18 /min Oxygen saturation in 2018-12-24 09:00:00 99 /min Arterial blood by Pulse oximetry Body height 2018-12-21 15:30:00 165.1 cm NPI:1831 541230 Body weight 2018-12-21 15:30:00 108.636 kg NPI:1831 220385 BMI 2018-12-21 15:30:00 39.85 kg/m2 NPI:1831 435297 Systolic blood pressure 2018-12-20 15:34:00 113 mm[Hg] Diastolic blood 2018-12-20 15:34:00 72 mm[Hg] NPI:1 [id number] pressure Heart rate 2018-12-20 15:34:00 90 /min NPI:1831 129338 Body temperature 2018-12-20 15:34:00 36.78 Radha Respiratory rate 2018-12-20 15:34:00 16 /min Body weight 2018-12-20 15:34:00 108.636 kg NPI:1831 326020 BMI 2018-12-20 15:34:00 39.85 kg/m2 NPI:1831 778703 Systolic blood pressure 2018-12-20 15:34:00 113 mm[Hg] Diastolic blood 2018-12-20 15:34:00 72 mm[Hg] NPI:1 [id number] pressure Heart rate 2018-12-20 15:34:00 90 /min NPI:1831 875153 Body temperature 2018-12-20 15:34:00 36.78 Radha Respiratory rate 2018-12-20 15:34:00 16 /min Body weight 2018-12-20 15:34:00 108.636 kg NPI:1831 813241 BMI 2018-12-20 15:34:00 39.85 kg/m2 NPI:1831 443576 Systolic blood pressure 2018-12-18 17:58:00 119 mm[Hg] Diastolic blood 2018-12-18 17:58:00 70 mm[Hg] NPI:1 975933029 pressure Heart rate 2018-12-18 17:58:00 80 /min NPI:1831 952978 Body temperature 2018-12-18 17:58:00 36.78 Radha Respiratory rate 2018-12-18 17:58:00 16 /min Body height 2018-12-18 17:58:00 165.1 cm NPI:1831 072458 Body weight 2018-12-18 17:58:00 109.43 kg NPI:1831 381555 BMI 2018-12-18 17:58:00 40.15 kg/m2 NPI:1831 032912 Systolic blood pressure 2018-12-18 17:58:00 119 mm[Hg] Diastolic blood 2018-12-18 17:58:00 70 mm[Hg] NPI:1 [id number] pressure Heart rate 2018-12-18 17:58:00 80 /min NPI:1831 093473 Body temperature 2018-12-18 17:58:00 36.78 Radha Respiratory rate 2018-12-18 17:58:00 16 /min Body height 2018-12-18 17:58:00 165.1 cm NPI:1831 612140 Body weight 2018-12-18 17:58:00 109.43 kg NPI:1831 007545 BMI 2018-12-18 17:58:00 40.15 kg/m2 NPI:1831 658536 Systolic blood pressure 2018-12-13 18:42:00 110 mm[Hg] Diastolic blood 2018-12-13 18:42:00 56 mm[Hg] NPI:1 689381966 pressure Heart rate 2018-12-13 18:42:00 74 /min NPI:1831 589757 Body temperature 2018-12-13 18:42:00 36.72 Radha Respiratory rate 2018-12-13 18:42:00 18 /min Body height 2018-12-13 18:42:00 165.1 cm NPI:1831 363578 Body weight 2018-12-13 18:42:00 109.544 kg NPI:1831 570686 BMI 2018-12-13 18:42:00 40.19 kg/m2 NPI:1831 945148 Systolic blood pressure 2018-12-13 18:42:00 110 mm[Hg] Diastolic blood 2018-12-13 18:42:00 56 mm[Hg] NPI:1 991602399 pressure Heart rate 2018-12-13 18:42:00 74 /min NPI:1831 853895 Body temperature 2018-12-13 18:42:00 36.72 Radha Respiratory rate 2018-12-13 18:42:00 18 /min Body height 2018-12-13 18:42:00 165.1 cm NPI:1831 148136 Body weight 2018-12-13 18:42:00 109.544 kg NPI:1831 126708 BMI 2018-12-13 18:42:00 40.19 kg/m2 NPI:1831 730446 Systolic blood pressure 2018-12-10 15:42:00 98 mm[Hg] Diastolic blood 2018-12-10 15:42:00 66 mm[Hg] NPI:1 [id number] pressure Heart rate 2018-12-10 15:42:00 71 /min NPI:1831 376354 Body temperature 2018-12-10 15:42:00 37.06 Radha Respiratory rate 2018-12-10 15:42:00 16 /min Body height 2018-12-10 15:42:00 165.1 cm NPI:1831 162163 Body weight 2018-12-10 15:42:00 109.77 kg NPI:1831 086512 BMI 2018-12-10 15:42:00 40.27 kg/m2 NPI:1831 836620 Systolic blood pressure 2018-12-10 15:42:00 98 mm[Hg] Diastolic blood 2018-12-10 15:42:00 66 mm[Hg] NPI:1 162684313 pressure Heart rate 2018-12-10 15:42:00 71 /min NPI:1831 999665 Body temperature 2018-12-10 15:42:00 37.06 Radha Respiratory rate 2018-12-10 15:42:00 16 /min Body height 2018-12-10 15:42:00 165.1 cm NPI:1831 094056 Body weight 2018-12-10 15:42:00 109.77 kg NPI:1831 297268 BMI 2018-12-10 15:42:00 40.27 kg/m2 NPI:1831 707800 Systolic blood pressure 2018-12-06 15:34:00 122 mm[Hg] Diastolic blood 2018-12-06 15:34:00 64 mm[Hg] NPI:1 724840444 pressure Heart rate 2018-12-06 15:34:00 95 /min NPI:1831 210052 Body temperature 2018-12-06 15:34:00 36.89 Radha Respiratory rate 2018-12-06 15:34:00 16 /min Body height 2018-12-06 15:34:00 165.1 cm NPI:1831 073221 Body weight 2018-12-06 15:34:00 111.33 kg NPI:1831 995101 BMI 2018-12-06 15:34:00 40.84 kg/m2 NPI:1831 776257 Systolic blood pressure 2018-12-06 15:34:00 122 mm[Hg] Diastolic blood 2018-12-06 15:34:00 64 mm[Hg] NPI:1 [id number] pressure Heart rate 2018-12-06 15:34:00 95 /min NPI:1831 150159 Body temperature 2018-12-06 15:34:00 36.89 Radha Respiratory rate 2018-12-06 15:34:00 16 /min Body height 2018-12-06 15:34:00 165.1 cm NPI:1831 639244 Body weight 2018-12-06 15:34:00 111.33 kg NPI:1831 768545 BMI 2018-12-06 15:34:00 40.84 kg/m2 NPI:1831 877722 Heart rate 2018-12-03 21:30:00 77 /min NPI:1831 139361 Oxygen saturation in 2018-12-03 21:30:00 99 /min Arterial blood by Pulse oximetry Systolic blood pressure 2018-12-03 19:12:00 139 mm[Hg] Diastolic blood 2018-12-03 19:12:00 74 mm[Hg] NPI:1 664293192 pressure Body temperature 2018-12-03 19:12:00 36.83 Radha Respiratory rate 2018-12-03 19:12:00 18 /min Body height 2018-12-03 19:12:00 167.6 cm NPI:1831 798976 Body weight 2018-12-03 19:12:00 111.494 kg NPI:1831 979581 BMI 2018-12-03 19:12:00 39.69 kg/m2 NPI:1831 928446 Heart rate 2018-12-03 21:30:00 77 /min NPI:1831 447926 Oxygen saturation in 2018-12-03 21:30:00 99 /min Arterial blood by Pulse oximetry Systolic blood pressure 2018-12-03 19:12:00 139 mm[Hg] Diastolic blood 2018-12-03 19:12:00 74 mm[Hg] NPI:1 519273483 pressure Body temperature 2018-12-03 19:12:00 36.83 Radha Respiratory rate 2018-12-03 19:12:00 18 /min Body height 2018-12-03 19:12:00 167.6 cm NPI:1831 888482 Body weight 2018-12-03 19:12:00 111.494 kg NPI:1831 675383 BMI 2018-12-03 19:12:00 39.69 kg/m2 NPI:1831 875833 Systolic blood pressure 2018-12-03 15:02:00 113 mm[Hg] Diastolic blood 2018-12-03 15:02:00 60 mm[Hg] NPI:1 [id number] pressure Heart rate 2018-12-03 15:02:00 73 /min NPI:1831 846749 Body temperature 2018-12-03 15:02:00 36.89 Radha Respiratory rate 2018-12-03 15:02:00 17 /min Body height 2018-12-03 15:02:00 167.6 cm NPI:1831 227973 Body weight 2018-12-03 15:02:00 111.585 kg NPI:1831 652872 BMI 2018-12-03 15:02:00 39.71 kg/m2 NPI:1831 009079 Systolic blood pressure 2018-12-03 15:02:00 113 mm[Hg] Diastolic blood 2018-12-03 15:02:00 60 mm[Hg] NPI:1 194492524 pressure Heart rate 2018-12-03 15:02:00 73 /min NPI:1831 567409 Body temperature 2018-12-03 15:02:00 36.89 Radha Respiratory rate 2018-12-03 15:02:00 17 /min Body height 2018-12-03 15:02:00 167.6 cm NPI:1831 834119 Body weight 2018-12-03 15:02:00 111.585 kg NPI:1831 381720 BMI 2018-12-03 15:02:00 39.71 kg/m2 NPI:1831 419888 Systolic blood pressure 2018-11-29 17:58:00 136 mm[Hg] Diastolic blood 2018-11-29 17:58:00 80 mm[Hg] NPI:1 [id number] pressure Heart rate 2018-11-29 17:58:00 76 /min NPI:1831 969222 Body temperature 2018-11-29 17:58:00 37.06 Radha Respiratory rate 2018-11-29 17:58:00 16 /min Body height 2018-11-29 17:58:00 167.6 cm NPI:1831 869872 Body weight 2018-11-29 17:58:00 111.273 kg NPI:1831 289730 BMI 2018-11-29 17:58:00 39.59 kg/m2 NPI:1831 554355 Systolic blood pressure 2018-11-29 17:58:00 136 mm[Hg] Diastolic blood 2018-11-29 17:58:00 80 mm[Hg] NPI:1 [id number] pressure Heart rate 2018-11-29 17:58:00 76 /min NPI:1831 452195 Body temperature 2018-11-29 17:58:00 37.06 Radha Respiratory rate 2018-11-29 17:58:00 16 /min Body height 2018-11-29 17:58:00 167.6 cm NPI:1831 313229 Body weight 2018-11-29 17:58:00 111.273 kg NPI:1831 734997 BMI 2018-11-29 17:58:00 39.59 kg/m2 NPI:1831 189304 Systolic blood pressure 2018-11-26 15:17:00 116 mm[Hg] Diastolic blood 2018-11-26 15:17:00 76 mm[Hg] NPI:1 694286560 pressure Heart rate 2018-11-26 15:17:00 84 /min NPI:1831 154257 Body temperature 2018-11-26 15:17:00 37 Radha Respiratory rate 2018-11-26 15:17:00 16 /min Body height 2018-11-26 15:17:00 167.6 cm NPI:1831 604041 Body weight 2018-11-26 15:17:00 109.827 kg NPI:1831 817340 BMI 2018-11-26 15:17:00 39.08 kg/m2 NPI:1831 382091 Systolic blood pressure 2018-11-22 13:11:00 108 mm[Hg] Diastolic blood 2018-11-22 13:11:00 62 mm[Hg] NPI:1 246173228 pressure Heart rate 2018-11-22 13:11:00 66 /min NPI:1831 632336 Body temperature 2018-11-22 13:11:00 36.72 Radha Respiratory rate 2018-11-22 13:11:00 16 /min Body height 2018-11-22 13:11:00 167.6 cm NPI:1831 838547 Body weight 2018-11-22 13:11:00 111.131 kg NPI:1831 460852 BMI 2018-11-22 13:11:00 39.54 kg/m2 NPI:1831 533158 Heart rate 2018-11-19 20:45:00 72 /min NPI:1831 360009 Oxygen saturation in 2018-11-19 20:15:00 100 /min Arterial blood by Pulse oximetry Systolic blood pressure 2018-11-19 17:41:00 135 mm[Hg] Diastolic blood 2018-11-19 17:41:00 65 mm[Hg] NPI:1 [id number] pressure Body temperature 2018-11-19 17:41:00 36.83 Radha Respiratory rate 2018-11-19 17:41:00 16 /min Body height 2018-11-19 17:41:00 167.6 cm NPI:1831 621624 Body weight 2018-11-19 17:41:00 109.77 kg NPI:1831 131521 BMI 2018-11-19 17:41:00 39.06 kg/m2 NPI:1831 437782 Systolic blood pressure 2018-11-19 14:28:00 118 mm[Hg] Diastolic blood 2018-11-19 14:28:00 64 mm[Hg] NPI:1 [id number] pressure Heart rate 2018-11-19 14:28:00 62 /min NPI:1831 847402 Body temperature 2018-11-19 14:28:00 36.89 Radha Respiratory rate 2018-11-19 14:28:00 16 /min Body height 2018-11-19 14:28:00 167.6 cm NPI:1831 932251 Body weight 2018-11-19 14:28:00 109.941 kg NPI:1831 271140 BMI 2018-11-19 14:28:00 39.12 kg/m2 NPI:1831 311033 Systolic blood pressure 2018-11-15 19:28:00 123 mm[Hg] Diastolic blood 2018-11-15 19:28:00 68 mm[Hg] NPI:1 650324897 pressure Heart rate 2018-11-15 19:28:00 73 /min NPI:1831 636220 Body temperature 2018-11-15 19:28:00 36.89 Radha Respiratory rate 2018-11-15 19:28:00 16 /min Body height 2018-11-15 19:28:00 167.6 cm NPI:1831 143366 Body weight 2018-11-15 19:28:00 110.309 kg NPI:1831 285816 BMI 2018-11-15 19:28:00 39.25 kg/m2 NPI:1831 812454 Systolic blood pressure 2018-11-12 15:53:00 102 mm[Hg] Diastolic blood 2018-11-12 15:53:00 64 mm[Hg] NPI:1 [id number] pressure Heart rate 2018-11-12 15:53:00 65 /min NPI:1831 826832 Body temperature 2018-11-12 15:53:00 37.39 Radha Respiratory rate 2018-11-12 15:53:00 16 /min Body height 2018-11-12 15:53:00 167.6 cm NPI:1831 013301 Body weight 2018-11-12 15:53:00 109.941 kg NPI:1831 831685 BMI 2018-11-12 15:53:00 39.12 kg/m2 NPI:1831 745295 Procedures Procedure Date / Time Performing Clinician Source Performed US LOWER EXTREMITY VEIN WITH 2019-01-01 07:50:21 Jazzmine Sheets COMPRESSION BILATERAL (ONLY Liss Rausch FOR RULE OUT DVT) Mahmoud URINALYSIS 2019-01-01 04:17:00 Alo Moses NPI:[id number] PROTEIN CREAT RATIO URINE 2019-01-01 04:17:00 Alo Moses DIRECTOR PUBLIC POLICY I:[id number] RANDOM SGOT (ASPARTATE AMINO 2019-01-01 04:16:00 Alo Moses NPI:18 [id number] TRANSFER) CREATININE 2019-01-01 04:16:00 Alo Moses NPI:[id number] ALANINE AMINO 2019-01-01 04:16:00 Alo Moses NPI:[id number] TRANSFERASE(SGPT LACTATE DEHYDROGENASE 2019-01-01 04:16:00 Alo Moses NPI:18 [id number] URIC ACID 2019-01-01 04:16:00 Alo Moses NPI:[id number] CBC WITH DIFFERENTIAL 2019-01-01 04:16:00 Alo Moses NPI:18 [id number] POCT URINALYSIS 2018-12-31 20:24:00 Max Velarde NPI:[id number] URINALYSIS 2018-12-29 01:39:00 Alla Alford NPI:[id number] LIPASE 2018-12-29 01:37:00 Alla Alford NPI:[id number] MAGNESIUM 2018-12-29 01:37:00 Alla Alford NPI:[id number] COMP. METABOLIC PANEL ([id number]) 2018-12-29 01:37:00 Alla Alford CBC WITH DIFFERENTIAL 2018-12-29 01:37:00 Alla Alford NPI:1 [id number] PROTHROMBIN TIME / INR 2018-12-29 01:37:00 Alla Alford N-TERMINAL PRO-BNP 2018-12-29 01:37:00 Alla Alford NPI:[id number] NOTICE OF PRIVACY PRACTICES 2018-12-29 00:16:20 Doctor Jessica willis, No Name CONSENT/REFUSAL FOR DIAGNOSIS 2018-12-29 00:16:07 Doctor Layo mercedes No AND TREATMENT Name POCT URINALYSIS 2018-12-28 18:48:00 Max Velarde NPI:[id number] CBC WITH DIFFERENTIAL 2018-12-24 09:13:00 Gilson Upton Holger CBC WITH DIFFERENTIAL 2018-12-22 15:41:00 Bob La NPI:18 [id number] LAB ON A CART 2018-12-21 20:22:00 Elizabeth Mccray NPI:[id number] THROMBELASTOGRAPH CITRATED KAOLIN W/HEPARIN CBC WITH DIFFERENTIAL 2018-12-21 16:10:00 Maicol Ramírez NPI:18 [id number] VENOUS CORD GAS 2018-12-21 16:07:00 Ree Lizama NPI:[id number] TRANSFUSE PLATELETS 2018-12-21 15:07:02 Luca Smallwood TRANSFUSE PLATELETS 2018-12-21 15:04:33 Luca Smallwood SECTION 2018-12-21 14:43:00 Jesse Woods NPI:[id number] PREPARE PLATELETS 2018-12-21 13:34:52 Luca Smallwood NPI:18 [id number] PREPARE PLATELETS 2018-12-21 13:34:51 Luca Smallwood NPI:18 [id number] LAB ON A CART 2018-12-21 13:18:00 Marcela Lujan NPI:[id number] THROMBELASTOGRAPH CITRATED KAOLIN CBC WITH DIFFERENTIAL 2018-12-21 03:45:00 Alison Zamorano NPI:18 [id number] TYPE AND SCREEN 2018-12-21 03:24:00 Antonio Sharma NPI:248 [id number] RHO (D) IMMUNE GLOBULIN 2018-12-21 03:24:00 Gilson Upton DIRECTOR PUBLIC POLICY I:[id number] Holger HEPATITIS B SURFACE ANTIGEN 2018-12-21 03:16:00 Alicia Sharma GALV ONLY - SYPHILIS IGG/IGM 2018-12-21 03:16:00 Sr javed Sharma NON-STRESS TEST 2018-12-20 16:12:39 Mila Ferguson POCT URINALYSIS 2018-12-20 15:39:00 Max Velarde NPI:[id number] NON-STRESS TEST 2018-12-18 19:31:53 Max Velarde NPI :[id number] POCT URINALYSIS 2018-12-18 18:02:00 Max Velarde NPI:[id number] NON-STRESS TEST 2018-12-13 19:28:18 Michael Leach NPI:18 [id number] NO SHOW OR MISSED APPOINTMENT 2018-12-13 18:26:00 Doctor Lexii Cardozo POLICY ACKNOWLEDGEMENT Name SECOND AND THIRD TRIMESTER 2018-12-13 18:14:00 Mila Ferguson ULTRASOUND NON-STRESS TEST 2018-12-10 16:53:02 Jesse Woods POCT URINALYSIS 2018-12-10 15:44:00 Allie Miller NPI:[id number] NON-STRESS TEST 2018-12-06 21:10:03 EmyMarycruz Bubba CBC WITH DIFFERENTIAL 2018-12-06 16:40:00 Marycruz Quevedo Bubba GROUP B STREPTOCOCCUS BY PCR 2018-12-06 16:40:00 QuevedoMarycruz Bubba POCT URINALYSIS 2018-12-06 15:35:00 Allie Miller NPI:[id number] CONSENT/REFUSAL FOR DIAGNOSIS 2018-12-03 18:58:48 Doctor Layo mercedes, No AND TREATMENT Name ASSIGNMENT OF BENEFITS 2018-12-03 18:58:36 Doctor Unassigned, No Name NON-STRESS TEST 2018-11-29 18:37:28 Mila Ferguson POCT URINALYSIS 2018-11-29 17:59:00 Allie Miller NPI:[id number] NON-STRESS TEST 2018-11-26 17:49:39 Inga Moore POCT URINALYSIS 2018-11-26 15:18:00 Allie Miller NPI:[id number] SECOND AND THIRD TRIMESTER 2018-11-22 16:13:00 Mila Ferguson ULTRASOUND NON-STRESS TEST 2018-11-22 14:36:42 Rimma Duran POCT URINALYSIS 2018-11-22 13:14:00 Allie Miller NPI:[id number] CONSENT/REFUSAL FOR DIAGNOSIS 2018-11-19 17:28:50 Doctor Layo mercedes, No AND TREATMENT Name ASSIGNMENT OF BENEFITS 2018-11-19 17:28:38 Doctor Unassigned, No Name NON-STRESS TEST 2018-11-19 14:56:33 Alison Reis NPI:1 [id number] POCT URINALYSIS 2018-11-19 14:29:00 Allie Miller NPI:[id number] NON-STRESS TEST 2018-11-15 20:16:30 Modesto De La Rosa NPI:18 [id number] POCT URINALYSIS 2018-11-15 19:31:00 Allie Miller NPI:[id number] NON-STRESS TEST 2018-11-12 17:13:21 Inga Moore POCT URINALYSIS 2018-11-12 15:55:00 Allie Miller NPI:602 [id number] Encounters Start End Encounter Admission Attending Care Care Encounter Source Date/Time Date/Time Type Type Clinicians Facility Department ID 2020-05-03 Inpatient UR Maria G [facility] [id number] [facility] 03:53:00 Casey [id number] [facility] 2021-05-04 2021-05-05 Inpatient EM Ta [facility] MEDI.01 [id number] [facility] 01:14:00 14:01:00 Fatemeh 55 [facility] 2021-05-04 2021-05-05 Inpatient EM Ta [facility] MEDI.01 [id number] 1-20 [facility] 01:14:00 14:01:00 Fatemeh [id number] [facility] 2021-05-03 2021-05-03 Emergency EM Chelo Ramírez [facility] MARY LOU [id number] 31-20 [facility] 23:33:00 23:33:00 [id number] [facility] 2021-03-02 2021-03-02 Emergency X [facility] ERT [id number] NPI:183 22:11:00 22:41:00 [id number] 2020-08-25 2020-08-26 Outpatient E [facility] [id number] Memoria 02:37:00 18:00:00 DEBRA Roque l 2020-07-06 2020-07-06 Patient Chato [facility] 1.2.840.114 [id number] NPI:183 00:00:00 00:00:00 Outreach Bird [facility] 350.1.13.10 1 [id number] [facility] 4.2.7.2.686 PAAUILO [id number] 2019-07-13 2019-07-13 Nurse JARAD Douglas 1.2.840.114 [id number] 00:00:00 00:00:00 Triage Aracelis [place]EL 350.1.13.[address] [id number] 2019-07-13 2019-07-13 JARAD Santamaria 1.2.840.114 [id number] 00:00:00 00:00:00 Triage Melinda D [place] 350.1.13.[address]686 [id number] [id number] 2019-07-13 2019-07-13 Nurse JARAD Douglas 1.2.840.114 [id number] NPI:183 00:00:00 00:00:00 Triage Aracelis ISRAEL 350.1.13.[id number] [id number] 2019-07-13 2019-07-13 JARAD Santamaria 1.2.840.114 [id number] NPI:183 00:00:00 00:00:00 Triage Melinda D [place]RAEL 350.1.13.[id number]686 [id number] [id number] 2018-12-31 [id number] 21:55:55 14:19:00 Encounter Jsese WOOD 350.1.13.10 [place] 4.2.7.2.686 [id number] 2018-12-31 2019-01-01 [facility]AD [id number] NPI:183 21:55:55 14:19:00 Encounter Jesse WOOD 350.1.13.10 [id number] ANN[place] 4.2.7.2.686 [id number] 2018-12-31 2018-12-31 Nurse Visit, [facility] 1.2.840.114 [id number] 15:10:27 15:53:28 Visit [facility] FACTORY REPRESENTATIVE 350.1.13.[address] [facility] 4.2.7.2.686 MATERNAL [id number] & CHILD 107 [facility] 2018-12-31 2018-12-31 Nurse Visit, Ang-Rmchp Nurse [facility] 1.2 .840.114 [id number] NPI:183 15:10:27 15:53:28 Visit Allie Miller FACTORY REPRESENTATIVE 350.1.13. [id number] [facility] 4.2.7.2.686 MATERNAL [id number] & CHILD 107 [facility] 2018-12-31 2018-12-31 [facility] 1.2.840.114 [id number] 00:00:00 00:00:00 Rimma Guadalupe FACTORY REPRESENTATIVE 350.1.13.10 [facility] 4.2.7.2.686 MATERNAL [id number] & CHILD 107 [facility] 2018-12-31 2018-12-31 Telephone JARAD Upton 1.2.840.114 [id number] 00:00:00 00:00:00 Gilson WOOD 350.1.13.10 [place] [address].2.7.2.686 [id number] 013 2018-12-31 2018-12-31 Telephone Akil [facility] 1.2.840.114 [id number] NPI:183 00:00:00 00:00:00 Rimma Guadalupe FACTORY REPRESENTATIVE 350.1.13.[id number] [facility] 4.2.7.2.686 MATERNAL [id number] & CHILD 107 [facility] 2018-12-31 2018-12-31 Telephone JARAD Upton 1.2.840.114 [id number] NPI:183 00:00:00 00:00:00 Gilson WOOD 350.1.13.10 [id number]7.2.686 [id number] 013 2018-12-28 2018-12-29 Emergency [facility] 1.2.316.648 [id number] 19:29:15 00:59:00 Alla Lopez 350.1.13.10 [place] [address].2.7.2.686 [place] [id number] 084 2018-12-28 2018-12-29 Emergency [place], [facility] 1.2.223.154 [id number] NPI:183 19:29:15 00:59:00 Alla Lion [place] 350.1.13.10 [id number] [place] 4.2.7.2.686 [place] [id number] 084 2018-12-28 2018-12-28 Nurse Visit, [facility] 1.2.840.114 [id number] 12:55:55 13:47:08 Visit Jerel FACTORY REPRESENTATIVE 350.1.13.10 Nurse [place] [address].2.7.2.686 MATERNAL [id number] & CHILD 107 [facility] 2018-12-28 2018-12-28 [facility] 1.2 .840.114 [id number] NPI:183 12:55:55 13:47:08 Visit Max Velarde FACTORY REPRESENTATIVE 350.1.13.10 [id number] [place] [address].2.7.2.686 MATERNAL [id number] & CHILD 107 [facility] 2018-12-20 2018-12-24 [facility] 1.2.840.114 [id number] 18:42:00 13:40:00 Encounter Ree ISRAEL 350.1.13.10 ANN 4.2.7.2.686 [id number] 2018-12-20 2018-12-24 [facility] 1.2.840.114 [id number] NPI:183 18:42:00 13:40:00 Encounter Ree ISRAEL 350.1.13.10 [id number] [facility] 4.2.7.2.686 [id number] 2018-12-20 2018-12-20 Stone Setter Apprentice Ultrasound, [facility] 1.2.840.114 [id number] 11:12:37 11:42:37 Visit Ad-kings FACTORY REPRESENTATIVE 350.1.13.10 [place] [address].2.7.2.686 MATERNAL [id number] & CHILD 369 [facility] 2018-12-20 2018-12-20 Stone Setter Apprentice Ultrasound, Ang-Mfkings [facility] 1.2 .840.114 [id number] NPI:183 11:12:37 11:42:37 Visit Mila Ferguson FACTORY REPRESENTATIVE 350.1.13.10 [id number] [place] [facility]AL 4.2.7.2.686 MATERNAL [id number] & CHILD 369 [facility] 2018-12-20 2018-12-20 Routine Risk, [facility] 1.2.840.114 [id number] 10:20:16 11:05:03 Ang-Rmchp-N FACTORY REPRESENTATIVE 350.1.13.10 Visit p/High REGIONAL 4.2.7.2.686 MATERNAL [id number] & CHILD 107 [facility] 2018-12-20 2018-12-20 Routine Risk, Fom-Potvi-Qi/High [facility] 1. 2.840.114 [id number] NPI:183 10:20:16 11:05:03 Mila Ferguson FACTORY REPRESENTATIVE 350.1.13.10 [id number] Visit REGIONAL 4.2.7.2.686 MATERNAL [id number] & CHILD 107 [facility] 2018-12-18 2018-12-18 Routine Velarde, [facility] 1.2.840.114 [id number] 12:50:29 14:00:55 Roshunda R FACTORY REPRESENTATIVE 350.1.13.10 Visit REGIONAL 4.2.7.2.686 MATERNAL [id number] & CHILD 107 [facility] 2018-12-18 2018-12-18 Routine Velarde, [facility] 1.2.840.114 [id number] NPI:183 12:50:29 14:00:55 Roshunda R FACTORY REPRESENTATIVE 350.1.13.10 [id number] Visit REGIONAL 4.2.7.2.686 MATERNAL [id number] & CHILD 107 [facility] 2018-12-13 2018-12-13 Routine Pool, [facility] 1.2.840.114 [id number] 13:28:19 14:24:11 Resident HEALTH 350.1.13.10 Visit CLINICS 4.2.7.2.686 [id number] 113 2018-12-13 2018-12-13 Routine Pool, [facility] Resident [facility] 1.2.8 40.114 [id number] NPI:183 13:28:19 14:24:11 Inga Moore [facility] 350.1. 13.10 [id number] [facility] 4.2.7.2.686 Eduardo Chacorta Abrams [id number] 113 2018-12-13 2018-12-13 Stone Setter Apprentice 2, [facility] UNIVERSIT 1.2.840.11 4 [id number] 12:48:28 13:23:20 Visit [facility] 350.1.13.10 [facility] 4.2.7.2.686 [id number] 104 2018-12-13 2018-12-13 Stone Setter Apprentice 2, [facility] UNIVERSIT 1 .2.840.114 [id number] NPI:183 12:48:28 13:23:20 Visit Inga Moore [facility] 350.1.1 3.10 [id number] [facility] 4.2.7.2.686 [id number] 104 2018-12-13 2018-12-13 Orders Doctor JARAD 1.2.840.114 [id number] 98 00:00:00 00:00:00 Only Unassigned, [place] 350.1.13.10 [place] [address]686 [id number] 009 2018-12-13 2018-12-13 Orders Doctor JARAD 1.2.840.114 [id number] NPI:183 00:00:00 00:00:00 Only Unassigned, [place] 350.1.13.10 [id number] [place] [address].2.7.2.686 [id number] 009 2018-12-11 2018-12-11 Case JARAD Chris 1.2.840.114 97796 689 00:00:00 00:00:00 Management Ruba [place] 350[address]1.13.[address]686 [id number] 013 2018-12-11 2018-12-11 Case JARAD Chris 1.2.840.114 [id number] 689 NPI:183 00:00:00 00:00:00 Management Ruba [place] 350.1.13.[id number]686 [id number] 013 2018-12-10 2018-12-10 Routine Faculty, [facility] 1.2.840.114 [id number] 10:35:35 11:46:44 Ang Rmchp FACTORY REPRESENTATIVE 350.1.13.10 Visit [facility] 4.2.7.2.686 MATERNAL [id number] & CHILD [address] [facility] 2018-12-10 2018-12-10 Routine Faculty, Ang Rmchp [facility] 1.2 .840.114 [id number] NPI:183 10:35:35 11:46:44 Jesse Woods FACTORY REPRESENTATIVE 350.1.13.[id number] [facility] 4.2.7.2.686 MATERNAL [id number] & CHILD [address] [facility] 2018-12-06 2018-12-06 Stone Setter Apprentice Ultrasound, [facility] 1.2.840.114 [id number] 11:40:06 12:10:06 Visit Ang-Mfm FACTORY REPRESENTATIVE 350.1.13.10 [facility] 4.2.7.2.686 MATERNAL [phone] & CHILD [address] [facility] 2018-12-06 2018-12-06 Stone Setter Apprentice Ultrasound, Ang-Mfm [facility] 1.2 .840.114 [id number] NPI:183 11:40:06 12:10:06 Visit Marycruz Quevedo FACTORY REPRESENTATIVE 350.1.13.[id number] [facility] 4.2.7.2.686 MATERNAL [id number] & CHILD [address] [facility] 2018-12-06 2018-12-06 Routine Risk, [facility] 1.2.840.114 [id number] 90 10:02:15 11:39:46 Ang-Rmchp-N FACTORY REPRESENTATIVE 350.1.13.10 Visit p/High [facility] 4.2.7.2.686 MATERNAL [id number] & CHILD [address] [facility] 2018-12-06 2018-12-06 Routine Risk, Qcu-Ojrgb-Zx/High [facility] 1. 2.840.114 [id number] NPI:183 10:02:15 11:39:46 Marycruz Quevedo FACTORY REPRESENTATIVE 350.1.13.[id number] [facility] 4.2.7.2.686 MATERNAL [id number] & CHILD [address] [facility] 2018-12-03 2018-12-03 [facility] Lorrie Olmos [facility] 1.2.840.114 [id number] [id number] 13:57:00 16:45:00 Encounter [place] 350.1.13.10 [place] 4.2.7.2.686 [place] [id number] 2018-12-03 2018-12-03 [facility] Lorrie Olmos [facility] 1.2.840.114 [id number] NPI:183 13:57:00 16:45:00 Encounter [place] 350.1.13.10 [id number] [place] 4.2.7.2.686 [place] [id number] 2018-12-03 2018-12-03 Routine Faculty, [facility] 1.2.840.114 [id number] 727 09:27:42 10:36:46 Ang Rmchp FACTORY REPRESENTATIVE 350.1.13.10 Visit [facility] 4.2.7.2.686 MATERNAL [id number] & CHILD [address] [facility] 2018-12-03 2018-12-03 Routine Faculty, Ang Rmchp [facility] 1.2 .840.114 [id number] NPI:183 09:27:42 10:36:46 Kyle Cordero FACTORY REPRESENTATIVE 350.1.13. [id number] [facility] 4.2.7.2.686 MATERNAL [id number] & CHILD [address] [facility] 2018-11-29 2018-11-29 Routine Risk, [facility] 1.2.840.114 [id number] 12:45:37 13:38:16 Ang-Rmchp-N FACTORY REPRESENTATIVE 350.1.13.10 Visit p/High [facility] 4.2.7.2.686 MATERNAL [id number] & CHILD [address] [facility] 2018-11-29 2018-11-29 Routine Risk, Tqf-Tfshi-Lz/High [facility] 1. 2.840.114 [id number] NPI:183 12:45:37 13:38:16 Mila Ferguson FACTORY REPRESENTATIVE 350.1.13.10 [id number] Visit REGIONAL 4.2.7.2.686 MATERNAL [id number] & CHILD [address] [facility] 2018-11-29 2018-11-29 Stone Setter Apprentice Ultrasound, [facility] 1.2 .840.114 [id number] NPI:183 11:09:01 11:48:17 Visit Calvin Patel FACTORY REPRESENTATIVE 350.1.13.[id number] [facility] 4.2.7.2.686 MATERNAL [id number] & CHILD [address] [facility] 2018-11-26 2018-11-26 Routine Faculty, [facility] 1.2 .840.114 [id number] NPI:183 10:07:03 11:06:11 Inga Moore FACTORY REPRESENTATIVE 350.1.1 3.10 [id number] Visit REGIONAL 4.2.7.2.686 MATERNAL [id number] & CHILD [address] [facility] 2018-11-22 2018-11-22 Stone Setter Apprentice 5, [facility] Us Room [facility] 1 .2.840.114 [id number] NPI:183 10:44:00 11:48:35 Visit Inga Moore [facility] 350.1.1 3.10 [id number] Alison Reis [facility] 4.2.7.2.686 [id number] 104 2018-11-22 2018-11-22 Routine Akil [facility] 1.2.885.303 [id number] 7634 NPI:183 08:04:45 09:05:49 Rimma Anayeli FACTORY REPRESENTATIVE 350.1.13.10 1 [id number] Visit REGIONAL 4.2.7.2.686 MATERNAL [id number] & CHILD [address] [facility] 2018-11-19 2018-11-19 Hospital Lorrie Olmos [facility] 1.2.840.114 706 53840 NPI:183 12:24:36 16:05:[address] [facility] 350.1.13.10 [id number] [place] 4.2.7.2.686 [place] [id number] 083 2018-11-19 2018-11-19 Routine Faculty, [facility] 1.2 .840.114 [id number] NPI:183 09:18:45 10:07:14 Alison Reis FACTORY REPRESENTATIVE 350.1.13.10 [id number] Visit REGIONAL 4.2.7.2.686 MATERNAL [id number] & CHILD [address] [facility] 2018-11-15 2018-11-15 Routine Faculty, [facility] 1.2 .840.114 [id number] NPI:183 13:56:25 15:11:31 Modesto De La Rosa FACTORY REPRESENTATIVE 350.1.13.10 [id number] Visit REGIONAL 4.2.7.2.686 MATERNAL [id number] & CHILD [address] [facility] 2018-11-14 2018-11-14 Stone Setter Apprentice Ultrasound, [facility] 1.2 .840.114 [id number] NPI:183 10:38:34 11:32:09 Visit ChatoAlison FACTORY REPRESENTATIVE 350.1.13.[id number] [facility] 4.2.7.2.686 MATERNAL [id number] & CHILD [address] [facility] 2018-11-12 2018-11-12 Routine Faculty, [facility] 1.2 .840.114 [id number] NPI:183 10:38:07 12:09:10 Inga Moore FACTORY REPRESENTATIVE 350.1.[id number] [facility] 4.2.7.2.686 MATERNAL [id number] & CHILD [address] [facility] 2018-11-01 2018-11-01 Case LITTLE Woodall 1.2.390.009 3565 0780 NPI:183 00:00:00 00:00:00 Management [employer] [address]1.13.[id number]686 [id number] 113 Results Test Description Test Time Test Comments [...] NORMAL (test code = PLTMR) CBC W/AUTO [id number] 13:59:00 Test Item Value Reference Range Interpretation Comments WHITE BLOOD CELL (test 4.4 K/mm3 6.5-12.3 L code = WBC) RED BLOOD CELL (test 3.63 M/mm3 3.51-4.69 N code = RBC) HEMOGLOBIN (test code = 9.6 g/dL 10.1-13.8 L Re sults verified HGB) by repeat mindi sis HEMATOCRIT (test code = 31.6 % 32.5-41.8 L Re sults verified HCT) by repeat mindi sis MEAN CELL VOLUME (test 87.1 fL [...] NIKOLAS STEVE.READ JED K & CONFIRMED? Y.BY [id number] 1356 IMMATURE PLATELET 6.0 % 0.0-10.8 N [...] REQUIRED (test code = PLTMR) CBC W/AUTO [id number] 00:52:00 Test Item Value Reference Range Interpretation Comments WHITE BLOOD CELL (test 6.5 K/mm3 6.5-12.3 N code = WBC) RED BLOOD CELL (test 2.45 M/mm3 3.51-4.69 L code = RBC) HEMOGLOBIN (test code = 6.4 g/dL 10.1-13.8 LL RESU LTS CALLED TO HGB) CLIFFORD VILLAGOMEZ AD BACK & CONFIRME D? YBY [id number] 05/04/21 0025 HEMATOCRIT (test code = 21.5 [...] REQUIRED (test code = PLTMR) COMPREHENSIVE METABOLIC [id number] 00:38:00 Test Item Value Reference Range Interpretation [...] units/L 46-116 N code = ALKP) PROTHROMBIN [id number] 00:35:00 Test Item Value Reference Range Interpretation Comments PROTHROMBIN TIME PATIENT (test code 13.6 secs 10.1-12.3 H = PTP) THROMBOPLASTIN TIME [id number] 00:35:00 Test Item Value Reference Range Interpretation Comments THROMBOPLASTIN TIME PARTIAL (test 30.6 secs 22-38 N code = PTT) - DUP AB/PEL/SC/[id number] 00:00:00 [facility] 1985 Sex: F Patient Name: BRI CAMPBELL Unit No: [id number] EXAMS: CPT CODE: [id number] DUP AB/PEL/SC/LTD 96832 PROCEDURE INFORMATION: Exam: US Pelvis Complete (Transabdominal), [...] and signed by: Reza Alexandre MD [facility]'s [facility] NAME: BRI CAMPBELL Radiology Department PHYS: KH Chelo Ramírez MD [address] : 1985 AGE: 35 SEX: F [place] [address] LOC: LiatERS PHONE #: [phone] EXAM DATE: 05/04/2021 STATUS: REG ER FAX #: [phone] RAD NO: Page 1 Signed Report (CONTINUED) Patient Name: BRI CAMPBELL Unit No: [id number] EXAMS: CPT CODE: [id number] DUP AB/PEL/SC/LTD 34855 <Continued> CC: Chelo Ramírez MD Technologist: Griselda Streeter RDMS Probe: Trnscrbd D/ (0121) GCD.CPS Orig Print D/T: S: 05/04/2021 (0124) [facility] NAME: BRI CAMPBELL Radiology Department PHYS: LASHELL Chelo Ramírez MD [address] : 1985 AGE: 35 SEX: F [place] [address] LOC: LiatERS PHONE #: [phone] EXAM DATE: 05/04/2021 STATUS: REG ER FAX #: [phone] RAD NO: Page 2 Signed Report Patient Name: BRI CAMPBELL Unit No: [id number]: CPT CODE: [id number] DUP AB/PEL/SC/LTD 45793 <Continued> [facility] NAME: BRI CAMPBELL Radiology Department PHYS: Chelo Ramírez MD [address] : 1985 AGE: 35 SEX: F [place] [address] LOC: Maya.ERS PHONE #: [phone] EXAM DATE: 05/04/2021 STATUS: REG ER FAX #: [phone] RAD NO: Page 3 Signed Report- US PELVIS [id number] 00:00:00 [facility] : 1985 Sex: F Patient Name: BRI CAMPBELL Unit No: [id number] EXAMS: CPT CODE: [id number] US PELVIS COMPLETE 60513 PROCEDURE INFORMATION: Exam: US Pelvis Complete (Transabdominal), [...] Reported and signed by: Reza Alexandre MD [facility] NAME: BRI CAMPBELL Radiology Department PHYS: Chelo Ramírez MD [address] : 1985 AGE: 35 SEX: F [place] [address] LOC: F.ERS PHONE #: [phone] EXAM DATE: 05/04/2021 STATUS: REG ER FAX #: [phone] RAD NO: Page 1 Signed Report (CONTINUED) Patient Name: BRI CAMPBELL Unit No: [id number] EXAMS: CPT CODE: [id number] US PELVIS COMPLETE 12904 <Continued> CC: Chelo Ramírez MD Technologist: Griselda Streeter RDMS Probe: Trnscrbd D/ (0121) GCD.CPS Orig Print D/T: S: 05/04/2021 (0121) [facility] NAME: BRI CAMPBELL MIC[facility]ELPARTH Radiology Department PHYS: Chelo Ramírez MD [address] : 1985 AGE: 35 SEX: F [place] [address] LOC: Maya.ERS PHONE #: [phone] EXAM DATE: 05/04/2021 STATUS: REG ER FAX #: [phone] RAD NO: Page 2 Signed Report Patient Name: BRI CAMPBELL Unit No: [id number]: CPT CODE: [id number] US PELVIS COMPLETE 49083 <Continued> [facility] NAME: BRI CAMPBELL Radiology Department PHYS: CRISTIAN Chelo Ramírez MD [address] : 1985 AGE: 35 SEX: F [place] [address] LOC: JOSSUE PHONE #: [phone] EXAM DATE: 05/04/2021 STATUS: REG ER FAX #: [phone] RAD NO: Page 3 Signed Report- US TRANSVAGINAL [id number] 00:00:00 [facility] : 1985 Sex: F Patient Name: BRI CAMPBELL Unit No: [id number] EXAMS: CPT CODE: [id number] US TRANSVAGINAL W/PELVIS 93935 PROCEDURE INFORMATION: Exam: US Pelvis Complete (Transabdominal), [...] and signed by: Reza Alexandre MD [facility] NAME: BRI CAMPBELL Radiology Department PHYS: CRISTIAN Chelo Ramírez MD [address] : 1985 AGE: 35 SEX: F [place], [place] [address] LOC: LiatERS PHONE #: [phone] EXAM DATE: 05/04/2021 STATUS: REG ER FAX #: [phone] RAD NO: Page 1 Signed Report (CONTINUED) Patient Name: BRI CAMPBELL Unit No: [id number] EXAMS: CPT CODE: [id number] US TRANSVAGINAL W/PELVIS 96554 <Continued> CC: Chelo Ramírez MD Technologist: Griselda Streeter, [facility] Probe: [id number] Trnscrbd D/ (012) GCD.CPS Orig Print D/T: S: 05/04/2021 (0122) [facility] NAME: BRI CAMPBELL Radiology Department PHYS: LASHELLJEREMY Chelo Ramírez MD [address] : 1985 AGE: 35 SEX: F [place] [address] LOC: F.ERS PHONE #: [phone] EXAM DATE: 05/04/2021 STATUS: REG ER FAX #: [phone] RAD NO: Page 2 Signed Report Patient Name: BRI CAMPBELL Unit No: [id number]: CPT CODE: [id number] US TRANSVAGINAL W/PELVIS 69568 <Continued> [facility] NAME: BRI CAMPBELL Radiology Department PHYS: Chelo Ramírez MD [address] : 11/1985 AGE: 35 SEX: F [place] [address] LOC: F.ERS PHONE #: [phone] EXAM DATE: 05/04/2021 STATUS: REG ER FAX #: [phone] RAD NO: Page 3 Signed Report- [facility] [id number] 08:04:00 [facility] 1985 Sex: F Patient Name: BRI CAMPBELL Unit No: [id number] EXAMS: CPT CODE: [id number] DUP VEIN SAMANTHA 99214 BILATERAL LOWER EXTREMITY DUPLEX VENOUS DOPPLER ULTRASOUND, [...] CC: Magdalena Ferro Technologist: LILLI MCGOWAN RDMS, T Probe: Trnscrbd D/ (0804) RajivAJ13 Orig Print D/T: S: 05/04/2020 (0807) [facility] NAME: BRI CAMPBELL Radiology Department PHYS: Magdalena Borrego MD [address] : 1985 AGE: 34 SEX: F [place], [place] [address] [facility] [id number] LOC: ROMAIN Saunders PHONE #: [phone] EXAM DATE: 05/04/2020 STATUS: ADM IN FAX #: [phone] RAD NO: Page 1 Signed Report Patient Name: BRI CAMPBELL Unit No: [id number] EXAMS: CPT CODE: [id number] DUP VEIN SAMANTHA 93248 <Continued> [facility] NAME: BRI CAMPBELL Radiology Department PHYS: Magdalena Borrego MD [address] : 1985 AGE: 34 SEX: F [place], [place] [address] LOC: ROMAIN Saunders PHONE #: [phone] EXAM DATE: 05/04/2020 STATUS: ADM IN FAX #: [phone] RAD NO: Page 2 Signed ReportCBC W/AUTO [id number] 04:57:00 Test Item Value Reference Range Interpretation [...] NORMAL REQUIRED (test code = PLTMR) WBC [id number] 04:57:00 Test Item Value Reference Range Interpretation [...] NORMAL A code = PLTMORPH) CBC W/AUTO [id number] 04:56:00 Test Item Value Reference Range Interpretation [...] PLT) LOVE.READ JED K & CONFIRMED? Y.BY FAdrianLAB.TM 0456Results verified by rep eat analysis IMMATURE PLATELET 8.4 % 0.0-10.8 N FRACTION (test code = IPF) MEAN PLATELET VOLUME 12.9 fl 9.1-12.7 H (test code = MPV) MANUAL DIFF REQUIRED YES (test code = MDIFF) RBC MORPHOLOGY REQUIRED NORMAL NORMAL (test code = RBCM) PLATELET MORPHOLOGY ABNORMAL NORMAL REQUIRED (test code = PLTMR) WBC [id number] 04:56:00 Test Item Value Reference Range Interpretation Comments SEGMENTED NEUTROPHILS (test code = SEG) % 56.5-79.4 LYMPHOCYTE (test code = LYMPH) % 20-40 CBC W/AUTO [id number] 04:56:00 Test Item Value Reference Range Interpretation [...] PLT) READ JED K & CONFIRMED? Y.BY F.LAB.TM 0456Results verified by rep eat analysis IMMATURE PLATELET 8.4 % 0.0-10.8 N FRACTION (test code = IPF) MEAN PLATELET VOLUME 12.9 fl 9.1-12.7 H (test code = MPV) MANUAL DIFF REQUIRED YES (test code = MDIFF) RBC MORPHOLOGY REQUIRED NORMAL NORMAL (test code = RBCM) PLATELET MORPHOLOGY ABNORMAL NORMAL REQUIRED (test code = PLTMR) WBC [id number] 04:56:00 Test Item Value Reference Range Interpretation Comments SEGMENTED NEUTROPHILS (test code = SEG) % 56.5-79.4 LYMPHOCYTE (test code = LYMPH) % 20-40 COMPREHENSIVE METABOLIC [id number] 04:39:00 Test Item Value Reference Range Interpretation [...] 46-116 N code = ALKP) CBC W/AUTO [id number] 19:13:00 Test Item Value Reference Range Interpretation Comments WHITE BLOOD CELL 5.9 K/mm3 6.6-12.1 L (test code = WBC) RED BLOOD CELL (test 2.60 M/mm3 3.45-5.01 L code = RBC) HEMOGLOBIN (test 6.9 g/dL 10.7-13.9 L RESULTS FERMIN IFIED BY code = HGB) REPEAT ANALYSIS RESULTS CALLED TO GIANNA VERDUGOREAD BACK & CONFIRME D? Y.BY F.LAB.[facility] 05/03. HEMATOCRIT (test 22.1 % 32.1-42.1 L [...] PLT) SUREKHA.READ BA CK & CONFIRMED? Y.BY F.LAB.[facility] 05/03 IMMATURE PLATELET 6.4 % 0.0-10.8 N [...] REQUIRED (test code PRESENT = PLTMR) LACTIC [id number] 19:05:00 Test Item Value Reference Range Interpretation Comments LACTIC ACID (test 4.5 MMOL/L 0.5-2.2 HH RESULTS CA LLED TO code = LACT) MARIBEL.READ BACK & CONFIRMED? YES. BY GlenAS04 04/17. COMPREHENSIVE METABOLIC [id number] 19:01:00 Test Item Value Reference Range Interpretation [...] 60 units/L 46-116 code = ALKP) PROTHROMBIN [id number] 19:01:00 Test Item Value Reference Range Interpretation Comments PROTHROMBIN TIME PATIENT (test code 13.3 secs 10.4-12.4 H = PTP) THROMBOPLASTIN TIME [id number] 19:01:00 Test Item Value Reference Range Interpretation Comments THROMBOPLASTIN TIME PARTIAL (test 20.6 secs 22-38 L code = PTT) [id number] 19:01:00 Test Item Value Reference Range Interpretation Comments FIBRINOGEN (test code = FIB) 141 mg/dL 309-518 L UA RFLX MICR CULT IF [id number] 12:47:00 Test Item Value Reference Range Interpretation [...] RiskForSepsis-no oth srcSpecimen Description: CLEAN CATCHUR HCG [id number] 12:47:00 Test Item Value Reference Range Interpretation [...] Description: CLEAN CATCHUA RFLX MICR CULT IF [id number] 12:36:00 Test Item Value Reference Range Interpretation [...] RiskForSepsis-no oth srcSpecimen Description: CLEAN CATCHUR HCG [id number] 12:36:00 Test Item Value Reference Range Interpretation [...] culture: RiskForSepsis-no oth srcSpecimen Description: CLEAN CATCHPROTHROMBIN [id number] 10:14:00 Test Item Value Reference Range Interpretation Comments PROTHROMBIN TIME PATIENT (test code 13.3 secs 10.4-12.4 H = PTP) THROMBOPLASTIN TIME [id number] 10:14:00 Test Item Value Reference Range Interpretation Comments THROMBOPLASTIN TIME PARTIAL (test 19.4 secs 22-38 L code = PTT) [id number] 10:14:00 Test Item Value Reference Range Interpretation Comments FIBRINOGEN (test code = FIB) 102 mg/dL 309-518 L COMPREHENSIVE METABOLIC [id number] 09:54:00 Test Item Value Reference Range Interpretation [...] units/L 46-116 N code = ALKP) HGB [id number] 06:49:00 Test Item Value Reference Range Interpretation [...] venous thrombosis in the bilateral lower extremity. Rosa Luther MD., have reviewed this study and [...] reviewed this study and agree with the abovereport.NPI:[id number] CREAT Ratio Urine [id number] 06:35:00 Test Item Value Reference Range Interpretation Comments T. PROT U (test code = 2888-6) 11 mg/dL CREAT U (test code = 7015616462) 153.3 mg/dL Protein/Creatinine Ratio Urine 0.0-2.0 (test code = 5481279591) NPI:[id number] Acid [id number] 05:37:00 Test Item Value Reference Range Interpretation Comments URIC ACID (test code = 7272473566) 8.2 mg/dL 2.9-6 H Lab Interpretation (test code = Abnormal 31820-9) NPI:[id number] Amino Transferase (SGPT)2019-01-01 05:37:00 Test Item Value Reference Range Interpretation Comments ALT(SGPT) (test code = 8722164078) 21 U/L 9-51 Lab Interpretation (test code = Normal 36553-5) NPI:[id number] [id number] 05:37:00 Test Item Value Reference Range Interpretation Comments LDH (test code = 7972935788) 781 U/L 300-600 H Lab Interpretation (test code = Abnormal 78929-0) NPI:[id number] [id number] 05:25:00 Test Item Value Reference Range Interpretation Comments CREATININE (test code 0.62 mg/dL 0.5-1.04 = 1515699851) eGFR Calculation mL/min/1.73m2 (Non-) (test code = 8015323712) eGFR Calculation mL/min/1.73m2 () (test code = 0978305310) MICKY (test code = MICKY) Association of [...] or urine or abnormalities in imaging tests). NPI:[id number] (Asparate Amino Transfer)2019-01-01 05:25:00 Test Item Value Reference Range Interpretation Comments AST(SGOT) (test code = 7593186311) 30 U/L 13-40 Lab Interpretation (test code = Normal 63312-9) NPI:[id number] 04:46:00 Test Item Value Reference Range Interpretation Comments APPEARANCE (test code = Clear Clear 7030890616) COLOR (test code = Yellow Yellow 2520998756) PH (test code = 4.8-8.0 8043838129) SP GRAVITY (test code = 1.003-1.030 3924528873) GLU U QUAL (test code = Normal Normal 1941468327) BLOOD (test code = Negative Negative 2186764174) KETONES (test code = Negative Negative 0893762580) PROTEIN (test code = Negative Negative 2887-8) UROBILIN (test code = Normal Normal 3218524550) BILIRUBIN (test code = Negative Negative 6550080880) NITRITE (test code = Negative Negative 4030825862) LEUK MISBAH (test code = Negative Negative 0049969599) RBC/HPF (test code = See_Comment [Autom ated message] 2270916187) The system [employer] generated this result transmitted ref erence range: 0 - 3 HP F. The reference range was not used to int erpret this result as normal/abnormal . WBC/HPF (test code = See_Comment [Autom ated message] 3574242995) The system [employer] generated this result transmitted ref erence range: 0 - 5 HP F. The reference range was not used to int erpret this result as normal/abnormal . BACTERIA (test code = Negative Negative 3354245694) MUCOUS (test code = Slight Negative LPF A [id number]) SQ EPITH (test code = See_Comment H [Auto mated message] [id number]) The system [employer] generated this result transmitted ref erence range: <=2 HPF. The reference range was not used to int erpret this result as normal/abnormal . HYAL CAST (test code = See_Comment H [Aut omated message] [id number]) The system [employer] generated this result transmitted ref erence range: <=2 LPF. The reference range was not used to int erpret this result as normal/abnormal . Lab Interpretation (test Abnormal code = 21214-8) NPI:[id number] WITH [id number] 04:31:00 Test Item Value Reference Range Interpretation [...] (test code = 50.6 fL 39-49.9 H 95750-2) RDW-CV (test code = 14.8 % 12-15.5 788-0) PLT (test code = See_Comment [Automated 777-3) message] The sy stem which generated this result transmitted reference range : 166 - 358 10*3/ ?L. The reference r susan was not used to interpret this result as normal/abnormal . MPV (test code = 10.6 fL 9.5-12.9 56994-3) NRBC/100 WBC (test See_Comment [Automat ed code = [id number]) message] The system which generated this result transmitted reference range : 0.0 - 10.0 /100 WBCs. The refer ence range was not u sed to interpret th is result as normal/abnormal . NRBC x10^3 (test code <0.01 See_Comment [Auto mated = [id number]) message] The s ystem which generated this result transmitted reference range : 10*3/?L. The reference range was not used to interpret this result as normal/abnormal . GRAN MAT (NEUT) % 60.1 % (test code = 770-8) IMM GRAN % (test code 0.70 % = [id number]) LYMPH % (test code = 18.1 % 736-9) MONO % (test code = 6.1 % 5905-5) EOS % (test code = 14.3 % 713-8) BASO % (test code = 0.7 % 706-2) GRAN MAT x10^3(ANC) 5.24 10*3/uL 1.88-7.09 (test code = [id number]) IMM GRAN x10^3 (test 0.06 10*3/uL 0-0.06 code = [id number]) LYMPH x10^3 (test code 1.58 10*3/uL 1.32-3.29 = 731-0) MONO x10^3 (test code 0.53 10*3/uL 0.33-0.92 = 742-7) EOS x10^3 (test code = 1.25 10*3/uL 0.03-0.39 H 711-2) BASO x10^3 (test code 0.06 10*3/uL 0.01-0.07 = 704-7) Lab Interpretation Abnormal (test code = 90580-8) NPI:[id number] URINALYSIS W SPECIFIC [id number] 20:25:00 Test Item Value Reference Range Interpretation [...] POCT U APPEAR (test code = 3267) NPI:[id number] 02:52:00 Test Item Value Reference Range Interpretation Comments NT-proBNP (test code 423 pg/mL See_Comment H [Autom ated = [id number]) message] The system which generated this result transmitted reference range : <=125. The reference range was not used to interpret this result as normal/abnormal . MICKY (test code = MICKY) Biotin has been reported to cause a negative bias, interpret results relative to patient's use of biotin. Lab Interpretation Abnormal (test code = 87774-3) NPI:[id number]. METABOLIC PANEL (54265)2018-12-29 02:44:00 Test Item Value Reference Range Interpretation Comments NA (test code = 141 mmol/L 135-145 2488696026) K (test code = 3.8 mmol/L 3.5-5 4173471812) CL (test code = 110 mmol/L 98-108 H 9477138454) CO2 TOTAL (test code = 23 mmol/L 23-31 1958888475) AGAP (test code = 2-16 8899352349) BUN (test code = 12 mg/dL 7-23 7223709433) GLUCOSE (test code = 103 mg/dL 70-110 1408052941) CREATININE (test code = 0.50 mg/dL 0.5-1.04 4579559679) TOTAL BILI (test code = 0.6 mg/dL 0.1-1.8 9857235125) CALCIUM (test code = 8.9 mg/dL 8.6-10.6 5633570285) T PROTEIN (test code = 6.8 g/dL 6.3-8.2 6075508598) ALBUMIN (test code = 3.5 g/dL 3.5-5 4800757572) ALK PHOS (test code = 86 U/L 34-122 2195160392) ALT(SGPT) (test code = 19 U/L 9-51 7428061723) AST(SGOT) (test code = 29 U/L 13-40 6336411542) eGFR Calculation mL/min/1.73m2 (Non-) (test code = 0522610933) eGFR Calculation mL/min/1.73m2 () (test code = 6084013320) MICKY (test code = MICKY) Association of [...] tests). Lab Interpretation Abnormal (test code = 18857-7) NPI:[id number] 02:44:00 Test Item Value Reference Range Interpretation Comments LIPASE (test code = 6112713674) 89 U/L 0-220 Lab Interpretation (test code = Normal 46234-0) NPI:[id number] 02:44:00 Test Item Value Reference Range Interpretation Comments MAGNESIUM (test code = 4644634787) 1.5 mg/dL 1.7-2.4 L Lab Interpretation (test code = Abnormal 86717-5) NPI:[id number] TIME / [id number] 02:40:00 Test Item Value Reference Range Interpretation Comments PROTIME PATIENT (test See_Comment [Auto mated message] code = 5964-2) The system hulu generated this result transmitted ref erence range: 12.0 - 1 4.7 Seconds. The re ference range was not u sed to interpret this result as normal/abnor mal. INR (test code = 6301-6) Nor mal INR <1.1; Warfarin Therap eutic range 2.0 to 3. 0 or 2.5 to 3.5, dep ending upon the indica tions. Lab Interpretation (test Normal code = 15108-6) NPI:[id number] 02:37:00 Test Item Value Reference Range Interpretation Comments APPEARANCE (test code = Cloudy Clear A 3824005602) COLOR (test code = Laura Yellow A 4856982324) PH (test code = 4.8-8.0 8376883642) SP GRAVITY (test code = 1.003-1.030 8077284534) GLU U QUAL (test code = Normal Normal 1381002407) BLOOD (test code = 3+ Negative A 3064751683) KETONES (test code = Negative Negative 4718547383) PROTEIN (test code = 100 mg/dL Negative A 2887-8) UROBILIN (test code = 4.0 mg/dL Normal A 9487135718) BILIRUBIN (test code = Negative Negative 8071075673) NITRITE (test code = Negative Negative 8879508073) LEUK MISBAH (test code = 75/uL Negative A 4488353365) RBC/HPF (test code = See_Comment H [Autom ated message] 5620320896) The system [employer] generated this result transmit ramana reference range : 0 - 3 HPF. The refe rence range was not u sed to interpret th is result as normal/abnormal . WBC/HPF (test code = See_Comment H [Autom ated message] 1184913650) The system [employer] generated this result transmit ramana reference range : 0 - 5 HPF. The refe rence range was not u sed to interpret th is result as normal/abnormal . BACTERIA (test code = Moderate Negative A 6405941841) MUCOUS (test code = Marked Negative LPF A 0042281687) SQ EPITH (test code = HPF 4884620220) YEAST BUD (test code = See_Comment H [Aut omated message] 8001057455) The system [employer] generated this result transmit ramana reference range : <=1 HPF. The refere nce range was not u sed to interpret th is result as normal/abnormal . ROSSI EPITH (test code = See_Comment [Aut omated message] 2138546153) The system [employer] generated this result transmit ramana reference range : <=1 HPF. The refere nce range was not u sed to interpret th is result as normal/abnormal . Lab Interpretation (test Abnormal code = 37792-4) NPI:[id number] WITH [id number] 02:09:00 Test Item Value Reference Range Interpretation [...] (test code = 52.4 fL 39-49.9 H 88486-1) RDW-CV (test code = 15.3 % 12-15.5 788-0) PLT (test code = See_Comment L [Automated 777-3) message] The sy stem which generated this result transmitted reference range : 166 - 358 10*3/ ?L. The reference r susan was not used to interpret this result as normal/abnormal . MPV (test code = 11.3 fL 9.5-12.9 30218-9) NRBC/100 WBC (test See_Comment [Automat ed code = 4129125469) message] The system which generated this result transmitted reference range : 0.0 - 10.0 /100 WBCs. The refer ence range was not u sed to interpret th is result as normal/abnormal . NRBC x10^3 (test code See_Comment [Auto mated = 1491440206) message] The s ystem which generated this result transmitted reference range : 10*3/?L. The reference range was not used to interpret this result as normal/abnormal . GRAN MAT (NEUT) % 70.5 % (test code = 770-8) IMM GRAN % (test code 0.80 % = 5921664360) LYMPH % (test code = 16.6 % 736-9) MONO % (test code = 6.0 % 5905-5) EOS % (test code = 5.8 % 713-8) BASO % (test code = 0.3 % 706-2) GRAN MAT x10^3(ANC) 5.46 10*3/uL 1.88-7.09 (test code = 3643007201) IMM GRAN x10^3 (test 0.06 10*3/uL 0-0.06 code = 4818129282) LYMPH x10^3 (test code 1.28 10*3/uL 1.32-3.29 L = 731-0) MONO x10^3 (test code 0.46 10*3/uL 0.33-0.92 = 742-7) EOS x10^3 (test code = 0.45 10*3/uL 0.03-0.39 H 711-2) BASO x10^3 (test code <0.03 0.01-0.07 = 704-7) Lab Interpretation Abnormal (test code = 61597-8) NPI:[id number] URINALYSIS W SPECIFIC [id number] 18:54:00 Test Item Value Reference Range Interpretation [...] U APPEAR (test code = 3267) * NPI:[id number] (D) IMMUNE [id number] 12:40:02 Test Item Value Reference Range Interpretation Comments RHIG CANDIDATE? No- see comment Patient i s not a (test code = candidate for R [facility]- 5055) Patient is Rh Positive.Perfor med at [facility] Laboratory Services - [facility] Blood [address] [place] [address]Ecad Free: [phone] A No. [id number] NPI:[id number] WITH [id number] 09:27:00 Test Item Value Reference Range Interpretation [...] (test code = 52.0 fL 39-49.9 H 15549-7) RDW-CV (test code = 15.2 % 12-15.5 788-0) PLT (test code = See_Comment L [Automated 777-3) message] The sy stem which generated this result transmitted reference range : 166 - 358 10*3/ ?L. The reference r susan was not used to interpret this result as normal/abnormal . MPV (test code = 10.8 fL 9.5-12.9 52390-5) NRBC/100 WBC (test See_Comment [Automat ed code = 2361032822) message] The system which generated this result transmitted reference range : 0.0 - 10.0 /100 WBCs. The refer ence range was not u sed to interpret th is result as normal/abnormal . NRBC x10^3 (test code <0.01 See_Comment [Auto mated = 3599929169) message] The s ystem which generated this result transmitted reference range : 10*3/?L. The reference range was not used to interpret this result as normal/abnormal . GRAN MAT (NEUT) % 73.9 % (test code = 770-8) IMM GRAN % (test code 0.50 % = 8927351392) LYMPH % (test code = 15.2 % 736-9) MONO % (test code = 7.2 % 5905-5) EOS % (test code = 3.1 % 713-8) BASO % (test code = 0.1 % 706-2) GRAN MAT x10^3(ANC) 5.65 10*3/uL 1.88-7.09 (test code = 3815920267) IMM GRAN x10^3 (test 0.04 10*3/uL 0-0.06 code = 9770607207) LYMPH x10^3 (test code 1.16 10*3/uL 1.32-3.29 L = 731-0) MONO x10^3 (test code 0.55 10*3/uL 0.33-0.92 = 742-7) EOS x10^3 (test code = 0.24 10*3/uL 0.03-0.39 711-2) BASO x10^3 (test code <0.03 0.01-0.07 = 704-7) Lab Interpretation Abnormal (test code = 67058-4) NPI:[id number] WITH [id number] 16:03:00 Test Item Value Reference Range Interpretation Comments WBC (test code = See_Comment [Automated 6690-2) message] The sy stem which generated this result transmitted reference range : 4.30 - 11.10 10*3/?L. The reference range was not used to interpret this result as normal/abnormal . RBC (test code = See_Comment L [Automated 899-8) message] The sy stem which generated this [...] RDW-SD (test code = 49.8 fL 39-49.9 18511-9) RDW-CV (test code = 15.0 % 12-15.5 788-0) PLT (test code = See_Comment L [Automated 777-3) message] The sy stem which generated this result transmitted reference range : 166 - 358 10*3/ ?L. The reference r susan was not used to interpret this result as normal/abnormal . MPV (test code = 11.2 fL 9.5-12.9 06579-3) NRBC/100 WBC (test See_Comment [Automat ed code = 1489190740) message] The system which generated this result transmitted reference range : 0.0 - 10.0 /100 WBCs. The refer ence range was not u sed to interpret th is result as normal/abnormal . NRBC x10^3 (test code <0.01 See_Comment [Auto mated = 4832591902) message] The s ystem which generated this result transmitted reference range : 10*3/?L. The reference range was not used to interpret this result as normal/abnormal . GRAN MAT (NEUT) % 85.8 % (test code = 770-8) IMM GRAN % (test code 1.10 % = 6571331616) LYMPH % (test code = 6.5 % 736-9) MONO % (test code = 5.1 % 5905-5) EOS % (test code = 1.3 % 713-8) BASO % (test code = 0.2 % 706-2) GRAN MAT x10^3(ANC) 9.20 10*3/uL 1.88-7.09 H (test code = 6613396902) IMM GRAN x10^3 (test 0.12 10*3/uL 0-0.06 H code = 2399088511) LYMPH x10^3 (test code 0.70 10*3/uL 1.32-3.29 L = 731-0) MONO x10^3 (test code 0.55 10*3/uL 0.33-0.92 = 742-7) EOS x10^3 (test code = 0.14 10*3/uL 0.03-0.39 711-2) BASO x10^3 (test code <0.03 0.01-0.07 = 704-7) Lab Interpretation Abnormal (test code = 48697-0) NPI:[id number] ON A CART THROMBELASTOGRAPH CITRATED KAOLIN W/HEPARIN 2018-12-21 21:35:00 Test Item Value Reference Range Interpretation Comments R (test code = 4804684307) 6.8 min 5-10 TEG K (test code = 0674800417) 5.2 min 1-3 H Angle (test code = 7725460375) 39.4 deg 53-72 L MA (test code = 7837642271) 35.7 min 50-70 L Lab Interpretation (test code = Abnormal 83122-7) NPI:[id number] ON A CART THROMBELASTOGRAPH CITRATED [id number] 16:23:00 Test Item Value Reference Range Interpretation Comments R (test code = 9322710067) 5.9 min 5-10 TEG K (test code = 1982888637) 4.9 min 1-3 H Angle (test code = 4315925835) 44.5 deg 53-72 L MA (test code = 2739253585) 38.7 min 50-70 L Lab Interpretation (test code = Abnormal 43355-9) NPI:[id number] WITH [id number] 16:16:00 Test Item Value Reference Range Interpretation Comments WBC (test code = See_Comment [Automated 3390-2) message] The sy stem which generated this result transmitted reference range : 4.30 - 11.10 10*3/?L. The reference range was not used to interpret this result as normal/abnormal . RBC (test code = See_Comment L [Automated 139-8) message] The sy stem which generated this [...] (test code = 50.5 fL 39-49.9 H 41151-1) RDW-CV (test code = 15.1 % 12-15.5 788-0) PLT (test code = See_Comment L [Automated 777-3) message] The sy stem which generated this result transmitted reference range : 166 - 358 10*3/ ?L. The reference r susan was not used to interpret this result as normal/abnormal . MPV (test code = 10.5 fL 9.5-12.9 46844-1) NRBC/100 WBC (test See_Comment [Automat ed code = 2935234957) message] The system which generated this result transmitted reference range : 0.0 - 10.0 /100 WBCs. The refer ence range was not u sed to interpret th is result as normal/abnormal . NRBC x10^3 (test code <0.01 See_Comment [Auto mated = 9166605460) message] The s ystem which generated this result transmitted reference range : 10*3/?L. The reference range was not used to interpret this result as normal/abnormal . GRAN MAT (NEUT) % 73.2 % (test code = 770-8) IMM GRAN % (test code 0.80 % = 2944641980) LYMPH % (test code = 20.1 % 736-9) MONO % (test code = 4.9 % 5905-5) EOS % (test code = 0.9 % 713-8) BASO % (test code = 0.1 % 706-2) GRAN MAT x10^3(ANC) 7.42 10*3/uL 1.88-7.09 H (test code = 8577272311) IMM GRAN x10^3 (test 0.08 10*3/uL 0-0.06 H code = 5099638921) LYMPH x10^3 (test code 2.04 10*3/uL 1.32-3.29 = 731-0) MONO x10^3 (test code 0.50 10*3/uL 0.33-0.92 = 742-7) EOS x10^3 (test code = 0.09 10*3/uL 0.03-0.39 711-2) BASO x10^3 (test code <0.03 0.01-0.07 = 704-7) Lab Interpretation Abnormal (test code = 82794-7) NPI:[id number] CORD [id number] 16:09:00 Test Item Value Reference Range Interpretation Comments BASE EXCESS, CORD mEq/L (test code = 2385357248) AC PH, CORD (BEAKER) 7.18-7.38 (test code = 4240163840) PC02, CORD (test code See_Comment [Auto mated message] The = 8319288115) system which g enerated this result transmit ramana reference range : 32 - 66 mmHg. The refer ence range was not used to interpret this result as normal/abnormal . PO2, CORD (test code See_Comment [Autom ated message] The = 3378865297) system which g enerated this result transmit ramana reference range : 10 - 30 mmHg. The refer ence range was not used to interpret this result as normal/abnormal . BICARBONATE, CORD See_Comment [Automate d message] The (test code = system which ge nerated this 3658232598) result transmit ramana reference range : 17 - 27 mEq/L. The refe rence range was not used to interpret this result as normal/abnormal . NPI:[id number] CORD [id number] 16:07:00 Test Item Value Reference Range Interpretation Comments VENOUS BASE EXCESS, CORD mEq/L (test code = 5428297492) VENOUS PH, CORD (test 7.25-7.45 code = 3508115061) VENOUS PC02, CORD (test See_Comment [Au tomated message] code = 2294103755) The syste m which generated this result transmitted ref erence range: 27 - 49 mmHg. The reference r susan was not used to interpret this result as normal/abnor mal. VENOUS PO2, CORD (test See_Comment H [Aut omated message] code = 0048568827) The syste m which generated this result transmitted ref erence range: 17 - 41 mmHg. The reference r susan was not used to interpret this result as normal/abnor mal. VENOUS BICARBONATE, CORD See_Comment [A utomated message] (test code = 5068012821) The system which generated this result transmitted ref erence range: 12 - 29 mEq/L. The reference r susan was not used to interpret this result as normal/abnor mal. Lab Interpretation (test Abnormal code = 49614-6) NPI:[id number] ONLY - SYPHILIS IGG/[id number] 14:12:00 Test Item Value Reference Range Interpretation Comments Syphilis IgG/IgM (test Non-reactive Non-reactive code = 52862-2) MICKY (test code = MICKY) Non-reactive - No serologic evidence of T. pallidum infection. Cannot exclude incubating or early syphilis. Submit a second specimen in 2-4 weeks if syphilis is clinically suspected.Equivocal - Further testing to follow.Reactive - Further testing to follow. Lab Interpretation (test Normal code = 88475-6) NPI:[id number] Platelets (in units): 1 Units~Indication: 4) Evidence of platelet dysfunction and no response to DDAVP or cryoprecipitate with active hemorrhage or at risk for qyglwptm6751-59-83 13:34:52 Test Item Value Reference Range Interpretation Comments Unit Blood Type (test O Pos code = 4410) ISBT Blood Type Code (test code = 097736) Unit Number (test code [id number] = 4411) Blood Expiration Date & Time (test code = 635890) Status Information Issued (test code = 4412) Product Identification Platelets (test code = 4413) Product Code (test J5812QY4 Performed at [facility] code = 4414) Laboratory Services - [facility] Blood [address] [place], [place] [address]kellie [address]Cixy Free: [phone] A No. [id number] NPI:[id number] Platelets (in units): 1 Units~Indication: 1) Platelets < 10,000 for bleeding fackugblwaf4191-83-12 13:34:51 Test Item Value Reference Range Interpretation Comments Unit Blood Type (test O Pos code = 4410) ISBT Blood Type Code (test code = 967682) Unit Number (test code [id number] = 4411) Blood Expiration Date & Time (test code = 771909) Status Information Issued (test code = 4412) Product Identification Platelets (test code = 4413) Product Code (test H0493E03 Performed at [facility] code = 4414) Laboratory Services [facility] Blood [address] [address]Hmvc Free: [phone] A No. [id number] NPI:[id number] B Surface Oxtsbld1037-68-39 05:55:00 Test Item Value Reference Range Interpretation Comments HBsAg Semi-Quantitative (test code = 5195-3) NPI:[id number] and Screen - ONCE Batdjeg4322-33-50 04:09:59 Test Item Value Reference Range Interpretation Comments ABO & RH (test code A POSITIVE Performe d at [facility] = 20) Laboratory Serv [facility] Blood [facility] [place] [address]Nmvf Free: [phone] A No. [id number] IAT (test code = Negative Performed a t [facility] 1185) Laboratory [facility] Blood [address] [address]Bahc Free: [phone] A No. [id number] NPI:[id number] WITH [id number] 04:09:00 Test Item Value Reference Range Interpretation Comments WBC (test code = See_Comment [Automated 4396-2) message] The sy stem which generated this result transmitted reference range : 4.30 - 11.10 10*3/?L. The reference range was not used to interpret this result as normal/abnormal . RBC (test code = See_Comment L [Automated 105-8) message] The sy stem which generated this [...] (test code = 50.7 fL 39-49.9 H 77319-4) RDW-CV (test code = 14.9 % 12-15.5 788-0) PLT (test code = See_Comment L [Automated 777-3) message] The sy stem which generated this result transmitted reference range : 166 - 358 10*3/ ?L. The reference r susan was not used to interpret this result as normal/abnormal . MPV (test code = 11.0 fL 9.5-12.9 03027-9) NRBC/100 WBC (test See_Comment [Automat ed code = 2135178127) message] The system which generated this result transmitted reference range : 0.0 - 10.0 /100 WBCs. The refer ence range was not u sed to interpret th is result as normal/abnormal . NRBC x10^3 (test code <0.01 See_Comment [Auto mated = 2620622258) message] The s ystem which generated this result transmitted reference range : 10*3/?L. The reference range was not used to interpret this result as normal/abnormal . GRAN MAT (NEUT) % 76.1 % (test code = 770-8) IMM GRAN % (test code 0.40 % = 8506611503) LYMPH % (test code = 16.3 % 736-9) MONO % (test code = 6.2 % 5905-5) EOS % (test code = 0.8 % 713-8) BASO % (test code = 0.2 % 706-2) GRAN MAT x10^3(ANC) 7.93 10*3/uL 1.88-7.09 H (test code = 8524327769) IMM GRAN x10^3 (test 0.04 10*3/uL 0-0.06 code = 5809829482) LYMPH x10^3 (test code 1.69 10*3/uL 1.32-3.29 = 731-0) MONO x10^3 (test code 0.64 10*3/uL 0.33-0.92 = 742-7) EOS x10^3 (test code = 0.08 10*3/uL 0.03-0.39 711-2) BASO x10^3 (test code <0.03 0.01-0.07 = 704-7) Lab Interpretation Abnormal (test code = 75101-2) NPI:[id number] NON-STRESS [id number] 16:13:01Cat INPI:[id number] URINALYSIS W SPECIFIC [id number] 15:39:00 Test Item Value Reference Range Interpretation [...] POCT U APPEAR (test code = 3267) NPI:[id number] NON-STRESS [id number] 19:32:31Reactive NSTNPI:[id number] POCT URINALYSIS W SPECIFIC [id number] 18:02:00 Test Item Value Reference Range Interpretation [...] POCT U APPEAR (test code = 3267) NPI:[id number] NON-STRESS [id number] 19:37:16NST NOTE12/13/2018 2:28 PM GA: 36w4d Baseline: 130sVariability: ModerateAccels: +Decels: NoneToco: Qu iescent Assessment: Reactive and reassuringPlan: Repeat as scheduled NPI:[id number] NON-STRESS [id number] 16:54:14NST reviewed, FHR 140s, moderate variability noted, category I, no contractions.NPI:[id number] URINALYSIS W SPECIFIC [id number] 15:45:00 Test Item Value Reference Range Interpretation [...] POCT U APPEAR (test code = 3267) NPI:[id number] B STREPTOCOCCUS BY [id number] 15:17:00 Test Item Value Reference Range Interpretation Comments Group B Streptococcus by PCR (test Negative Negative code = 71597-0) Lab Interpretation (test code = Normal 37854-0) NPI:[id number] WITH [id number] 06:28:00 Test Item Value Reference Range Interpretation [...] (test code = 54.0 fL 39-49.9 H 99963-1) RDW-CV (test code = 15.9 % 12-15.5 H 788-0) PLT (test code = See_Comment L [Automated 777-3) message] The sy stem which generated this result transmitted reference range : 166 - 358 10*3/ ?L. The reference r susan was not used to interpret this result as normal/abnormal . MPV (test code = 11.6 fL 9.5-12.9 88530-8) IPF % (test code = 5.3 % 1.3-7.7 Platelet count 0807304998) measured by fluorescence method. NRBC/100 WBC (test See_Comment [Automat ed code = 3671715667) message] The system which generated this result transmitted reference range : 0.0 - 10.0 /100 WBCs. The refer ence range was not u sed to interpret th is result as normal/abnormal . NRBC x10^3 (test code <0.01 See_Comment [Auto mated = 7390185122) message] The s ystem which generated this result transmitted reference range : 10*3/?L. The reference range was not used to interpret this result as normal/abnormal . GRAN MAT (NEUT) % 80.4 % (test code = 770-8) IMM GRAN % (test code 0.40 % = 5369198718) LYMPH % (test code = 12.4 % 736-9) MONO % (test code = 5.6 % 5905-5) EOS % (test code = 1.0 % 713-8) BASO % (test code = 0.2 % 706-2) GRAN MAT x10^3(ANC) 6.55 10*3/uL 1.88-7.09 (test code = 2063633553) IMM GRAN x10^3 (test 0.03 10*3/uL 0-0.06 code = 4872285141) LYMPH x10^3 (test code 1.01 10*3/uL 1.32-3.29 L = 731-0) MONO x10^3 (test code 0.46 10*3/uL 0.33-0.92 = 742-7) EOS x10^3 (test code = 0.08 10*3/uL 0.03-0.39 711-2) BASO x10^3 (test code <0.03 0.01-0.07 = 704-7) Lab Interpretation Abnormal (test code = 21693-2) NPI:[id number] NON-STRESS [id number] 21:11:11NST reactive and reassuring, 1 ctx notedNPI:[id number] URINALYSIS W SPECIFIC GRAVITY 2018-12-06 15:35:00 Test Item Value Reference Range Interpretation [...] POCT U APPEAR (test code = 3267) NPI:[id number] NON-STRESS [id number] 18:37:51Cat INPI:[id number] NON-STRESS [id number] 18:37:51Cat INPI:[id number] NON-STRESS TEST 2018-11-29 18:37:51Cat INPI:[id number] URINALYSIS W SPECIFIC GRAVITY 2018-11-29 17:59:00 Test Item Value Reference Range Interpretation [...] POCT U APPEAR (test code = 3267) NPI:[id number] URINALYSIS W SPECIFIC [id number] 17:59:00 Test Item Value Reference Range Interpretation [...] POCT U APPEAR (test code = 3267) NPI:[id number] URINALYSIS W SPECIFIC TFRMLDQ6677-78-11 17:59:00 Test Item Value Reference Range Interpretation [...] POCT U APPEAR (test code = 3267) NPI:[id number] NON-STRESS [id number] 17:50:16Reactive and reassuring NPI:[id number] URINALYSIS W SPECIFIC [id number] 15:21:00 Test Item Value Reference Range Interpretation [...] POCT U APPEAR (test code = 3267) NPI:[id number] NON-STRESS [id number] 14:37:24Cat 1 NST reactive, reviewed with Dr. Merino:[id number] URINALYSIS W SPECIFIC [id number] 13:15:00 Test Item Value Reference Range Interpretation [...] POCT U APPEAR (test code = 3267) NPI:[id number] NON-STRESS [id number] 14:57:43nonreactive NST with spontaneous decels to 100s from baseline. Will send to LD for prolonged monitori ng.NPI:[id number] NON-STRESS [id number] 14:57:43nonreactive NST with spontaneous decels to 100s from baseline. Will send to LD for prolonged monitori ng.NPI:[id number] NON-STRESS [id number] 14:57:43nonreactive NST with spontaneous decels to 100s from baseline. Will send to LD for prolonged monitori ng.NPI:[id number] URINALYSIS W SPECIFIC [id number] 14:30:00 Test Item Value Reference Range Interpretation [...] POCT U APPEAR (test code = 3267) NPI:[id number] URINALYSIS W SPECIFIC [id number] 14:30:00 Test Item Value Reference Range Interpretation [...] POCT U APPEAR (test code = 3267) NPI:[id number] URINALYSIS W SPECIFIC [id number] 14:30:00 Test Item Value Reference Range Interpretation [...] POCT U APPEAR (test code = 3267) NPI:[id number] NON-STRESS [id number] 20:17:18NON STRESS TEST INTERPRETATIONDate: 11/15/2018 15:16 Bri [...] NST 2x Leroy De La Rosa MD #[id number] 3:16 PM? NPI:[id number] NON-STRESS [id number] 20:17:18NON STRESS TEST INTERPRETATIONDate: 11/15/2018 15:16 Bri [...] 2 accelerationsComments: toco quiescedPlan: Continue NST 2x weekAntonio F Rj, MD #[id number] 3:16 PM? NPI:[id number] URINALYSIS W SPECIFIC [id number] 19:32:00 Test Item Value Reference Range Interpretation [...] POCT U APPEAR (test code = 3267) NPI:[id number] URINALYSIS W SPECIFIC [id number] 19:32:00 Test Item Value Reference Range Interpretation [...] POCT U APPEAR (test code = 3267) NPI:[id number] NON-STRESS [id number] 17:13:56Reactive and reassuring NPI:[id number] URINALYSIS W SPECIFIC [id number] 15:56:00 Test Item Value Reference Range Interpretation [...] POCT U APPEAR (test code = 3267) "
[2021-08-23] MEDS ORDERED: MORPHINE 4 MG/ML SYR ONE (22:07)
[2021-08-23] MEDS ORDERED: ONDANSETRON 4 MG/2 ML VIAL ONE (22:07)
[2021-08-23] MEDS ORDERED: NA CHLORIDE 0.9% 1,000 ML ONE (22:07)
[2021-08-23 22:16] LABS: Absolute Lymphocytes (CBC) 1.1 K/uL (0.7-4.9); Lymphocytes % 25.9 % (15.3-44.8); MPV 8.5 fL (7.6-11.3); RBC Red Blood Cell Count 2.35 M/uL (3.86-4.86)
[2021-08-23] MEDS ORDERED: DIPHENHYDRAMINE 50 MG/ML VIAL ONE (22:17)
[2021-08-23 22:29] LABS: ALT/SGPT 16 U/L (12-78); AST/SGOT 10 U/L (15-37); Albumin 3.5 g/dL (3.4-5.0); Alkaline Phosphatase 66 U/L (45-117); BUN Blood Urea Nitrogen 7 mg/dL (7-18); Bicarbonate 26 mmol/L (21-32); Bilirubin Total 0.4 mg/dL (0.2-1.0); Glucose Level 102 mg/dL (74-106); HCG, Quantitative < 1 mIU/mL (1-3); Protein, Total 7.5 g/dL (6.4-8.2); Sodium Level 140 mmol/L (136-145)
[2021-08-23 22:34] LABS: Hematocrit 18.2 % (36.0-45.0)
[2021-08-23 22:47] LABS: Protime INR 1.24
[2021-08-23 23:01] LABS: Urine Blood Negative (Negative); Urine Glucose Negative (Negative); Urine Protein Negative (Negative); Urine Specific Gravity 1.025 (1.005-1.030); Urine pH 6.5 (5.0-7.0)
--- NOTE | 2021-08-23 23:16 | RAD REPORT ---
EXAM DESCRIPTION: CTAbdomen Pelvis W Contrast - 08/23/2021 11:03 pm CLINICAL HISTORY: Abdominal pain, acute, nonlocalized COMPARISON: Abdomen Pelvis W Contrast dated 05/03/2021; Abdomen Pelvis W Contrast dated 01/09/2016 ; Abdomen Pelvis W Contrast dated 10/26/2015; CT ABD PELVIS W CONTRAST dated 06/28/2015 TECHNIQUE: CT of the abdomen and pelvis was performed. All CT scans are performed using dose optimization technique as appropriate and may include automated exposure control or mA/KV adjustment according to patient size. FINDINGS: Lower chest: No acute abnormality. Liver: Low-density liver lesions have benign imaging features. Biliary: No biliary ductal dilatation. Cholecystectomy. Stomach: No significant focal abnormality. Duodenum: No significant focal abnormality. Pancreas: No significant abnormality. Spleen: No significant abnormality. Adrenal: No suspicious lesions. Kidney/ureter: No hydronephrosis. No renal calculi. Too small to characterize and/or benign appearing renal lesions are noted. Retroperitoneum: No retroperitoneal adenopathy. Vascular: No aneurysm. Bowel: Normal appendix. No bowel obstruction.. Peritoneum: Trace pelvic free fluid. Bladder: Nonspecific circumferential bladder wall thickening. Reproductive: No adnexal masses. Tampon. Bones: No acute fracture. Disc height loss at L5-S1. Other: n/a IMPRESSION: No acute intra-abdominal or pelvic finding. Normal appendix. Trace free fluid which is l ikely physiologic. Bladder wall thickening which is nonspecific. Correlate with urinalysis to exclude cystitis.
--- NOTE | 2021-08-24 00:17 | EDPHYS ---
Physician Documentation [facility] Name: Bri Boyd Age: 36 yrs Sex: Female : 1985 Arrival Date: 08/23/2021 Time: 20:56 Bed 3 Private MD: ED Physician Raza De León HPI: 08/23 21:40 This 36 yrs old Female presents to ER via Ambulatory with complaints of Heavy Menstural jh7 Cycle. 21:40 Onset: The symptoms/episode began/occurred 3 week(s) ago. Associated signs and jh7 symptoms: Pertinent positives: abdominal pain, Pertinent negatives: chest pain, dysuria, fever, vomiting. Patient reports heavy vaginal bleeding with clots for 3 weeks. States that she is using 6-7 pads per day. 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 Also reports that last week she hit her right ribs on a bookshelf, and thinks she has a rib fracture. Also reports increased fatigue and right upper quadrant pain.. 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 ROS: 21:40 Constitutional: Negative for fever, chills, and weight loss, Neck: Negative for injury, jh7 pain, and swelling, Cardiovascular: Negative for chest pain, palpitations, and edema, Respiratory: Negative for shortness of breath, cough, wheezing, and pleuritic chest pain, Back: Negative for injury and pain, Skin: Negative for injury, rash, and discoloration. 21:40 Constitutional: 21:40 Abdomen/GI: Positive for abdominal pain, Negative for nausea and vomiting, diarrhea, black/tarry stool, rectal pain. 21:40 : Positive for vaginal bleeding, Negative for urinary symptoms, urinary frequency, flank pain. 21:40 MS/extremity: Positive for R rib pain. 21:40 All other systems are negative. Exam: 21:40 Constitutional: This is a well developed, well nourished patient who is awake, alert, jh7 and in no acute distress. Chest/axilla: Normal chest wall appearance and motion. No lesions are appreciated. Bruising and TTP over R ribs 9-10 Cardiovascular: Regular rate and rhythm with a normal S1 and S2. No gallops, murmurs, or rubs. Respiratory: Lungs have equal breath sounds bilaterally, clear to auscultation and percussion. No rales, rhonchi or wheezes noted. No increased work of breathing, no retractions or nasal flaring. Back: No spinal tenderness. No costovertebral tenderness. Full range of motion. 21:40 Neuro: Awake and alert, GCS 15, oriented to person, place, time, and situation. 21:40 Abdomen/GI: Inspection: abdomen appears normal, Bowel sounds: Palpation: mild abdominal tenderness, in the right upper quadrant. 21:40 Skin: Appearance: Large contusion present on R ribs 9-10. Diffuse scattered bruising present.. Vital Signs: 21:20 BP 101 / 73; Pulse 86; Resp 16 S; Temp 98.5(O); Pulse Ox 100% on R/A; Weight 81.65 kg al4 (R); Height 5 ft. 6 in. (167.64 cm) (R); 21:20 Body Mass Index 29.05 (81.65 kg, 167.64 cm) al4 MDM: 21:15 Patient medically screened. [facility] 22:12 ED course: Nurse reports that patient broke out in a rash after the morphine. The [facility] patient stated that that was normal for her and that she usually gets Benadryl after all the morphine is given. Benadryl 25 mg IV ordered.. 08/24 00:30 Differential diagnosis: anemia, abnormal uterine bleeding. Data reviewed: vital signs, [facility] nurses notes, lab test result(s), radiologic studies, CT scan, plain films. Data interpreted: Pulse oximetry: is 100 %. Interpretation: normal. Counseling: I had a detailed discussion with the patient and/or guardian regarding: the historical points, exam findings, and any diagnostic results supporting the discharge/admit diagnosis, the need to transfer to another facility, [facility] does not immediately have the required specialist. ED course: The patient remained hemodynamically stable throughout the ER visit. Informed the patient that she did have a rib fracture, and that it would heal in time. She responded well to the pain medicine. Due to her low hemoglobin, continuity of care and need for DIRECTOR ZONE specialty she will be transferred to [facility]. 1 unit of PRBCs were ordered. Discussed case with Dr. Dent, the accepting physician. . 05:35 ED course: Pt with chronic hematologic disease, states has only been taken care of at [facility] and [facility], patient insists that we transfer to [facility] as that is where she receives the majority of her care.. 08/23 21:39 Order name: Abo/rh Typing; Complete Time: 22:37 [facility] 08/23 21:39 Order name: CBC with Diff; Complete Time: 22:37 [facility] 08/23 21:39 Order name: Quantitative Hcg; Complete Time: 22:33 [facility] 08/23 21:39 Order name: CMP; Complete Time: 22:33 [facility] 08/23 21:39 Order name: PT-INR; Complete Time: 23:10 [facility] 08/23 23:02 Order name: Urine Dipstick-Ancillary; Complete Time: 23:10 [facility] 08/23 21:39 Order name: CT Abd/Pelvis - IV Contrast Only; Complete Time: 23:24 [facility] 08/23 21:41 Order name: XRAY Ribs RIGHT [facility] 08/24 01:35 Order name: SARS-COV-2 RT PCR [facility] 08/23 21:39 Order name: IV Saline Lock; Complete Time: 21:59 [facility] 08/23 21:39 Order name: Labs collected and sent; Complete Time: 21:59 [facility] 08/23 21:39 Order name: NPO; Complete Time: 21:59 [facility] 08/23 21:39 Order name: Urine Dipstick-Ancillary (obtain specimen); Complete Time: 23:02 [facility] Administered Medications: 08/23 22:17 Drug: Zofran (Ondansetron) 4 mg Route: IVP; Site: right antecubital; lg3 22:18 Follow up: Response: No adverse reaction lg3 22:17 Drug: NS 0.9% 1000 ml Route: IV; Rate: 1 bolus; Site: right antecubital; 3 08/24 02:01 Follow up: Response: No adverse reaction; IV Status: Completed infusion; IV Intake: lg3 1000ml 08/23 22:17 Drug: Benadryl (diphenhydrAMINE) 25 mg Route: IVP; Site: right antecubital; lg3 22:17 Follow up: Response: No adverse reaction lg3 22:18 Drug: morphine 4 mg Route: IVP; Site: right antecubital; lg3 22:18 Follow up: Response: No adverse reaction 3 08/24 00:51 Drug: fentaNYL (PF) 25 mcg Route: IVP; Site: right antecubital; lg3 00:51 Follow up: Response: No adverse reaction lg3 Disposition: 05:18 Co-signature as Attending Physician, Raza De León MD. rn Disposition Summary: 08/24/21 00:17 Transfer Ordered Transfer Location: [place] [address] Reason: Private Physician at Transferring Hospital 7 Condition: Stable 7 Problem: an ongoing problem 7 Symptoms: are unchanged 7 Accepting Physician: Dr. Dent(08/24/21 02:03) lg3 Diagnosis - Anemia, unspecified 7 - Abnormal uterine and vaginal bleeding, unspecified [facility] Forms: - Medication Reconciliation Form 7 - SBAR form 7 Signatures: Dispatcher [employer] EDMS Raza De León MD MD rn Gibson, Lacie, RN RN lg3 Juan Garcia Jennifer, FNP DINKING MACHINE OPERATOR 7 Corrections: (The following items were deleted from the chart) 01:35 00:00 COVID-19/FLU A+B+MOL.LAB.BRZ ordered. [facility] EDKS 01:39 00:30 ED course: The patient remained hemodynamically stable throughout the ER visit. jh7 She responded well to the pain medicine. Due to her low hemoglobin, continuity of care and need for DIRECTOR ZONE specialty she will be transferred to [facility]. 1 unit of PRBCs were ordered. Discussed case with Dr. Dent, the accepting physician. . jh7 02:03 00:17 Dr. Dent 7 lg3 05:35 05 21:40 Patient reports heavy vaginal bleeding with clots for 3 weeks. States that rn she is using 6-7 pads per day. 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 Also reports that last week she hit her right ribs on a bookshelf, and thinks she has a rib fracture. Also reports increased fatigue and right upper quadrant pain.. jh7
--- NOTE | 2021-08-24 00:17 | ER ---
Nurse's Notes [facility] Name: Bri Boyd Age: 36 yrs Sex: Female : 1985 Arrival Date: 08/23/2021 Time: 20:56 Bed 3 Private MD: Diagnosis: Anemia, unspecified;Abnormal uterine and vaginal bleeding, unspecified Presentation: 08/23 21:20 Chief complaint: Patient states: heavy menstrual bleeding with clots x 3 weeks (7 to 8 al4 pads daily). patient states she has a hx of glanzmann thrombasthenia. Coronavirus screen: Vaccine status: Patient reports being unvaccinated. Ebola Screen: No symptoms or risks identified at this time. Initial Sepsis Screen: Does the patient meet any 2 criteria? No. Patient's initial sepsis screen is negative. Does the patient have a suspected source of infection? No. Patient's initial sepsis screen is negative. Risk Assessment: Do you want to hurt yourself or someone else? Patient reports no desire to harm self or others. Onset of symptoms was August 02, 2021. 21:20 Method Of Arrival: Ambulatory al4 21:20 Acuity: KARIE 3 al4 Triage Assessment: 21:33 General: Appears in no apparent distress. uncomfortable, Behavior is calm, cooperative, al4 patient reports fatigue. Pain: Complains of pain in left qureshi. Neuro: Level of Consciousness is awake, alert, obeys commands, Oriented to person, place, time, situation. Cardiovascular: Patient's skin is warm and dry. Respiratory: Airway is patent Respiratory effort is even, unlabored, Respiratory pattern is regular. GI: Reports lower abdominal pain. : Reports vaginal bleeding that is with clots, heavy flow x 3 weeks. Derm: Bruising that is on posterior aspect of right lateral abdomen L arm, R rib cage, generalized bruises on body . Musculoskeletal: Circulation, motion, and sensation intact. 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 Screenin:50 Abuse screen: Denies threats or abuse. Denies injuries from another. Nutritional lg3 screening: No deficits noted. Tuberculosis screening: No symptoms or risk factors identified. Fall Risk None identified. Assessment: 21:30 General: see triage assessment . lg3 23:50 General: Appears in no apparent distress. comfortable, Behavior is calm, cooperative. lg3 Pain: Complains of pain in left leg and right mid back. Neuro: No deficits noted. Zazueta Agitation-Sedation Scale (RASS): 0 - Alert and Calm Level of Consciousness is awake, alert, obeys commands, Oriented to person, place, time, situation. Cardiovascular: No deficits noted. Denies chest pain, shortness of breath. Respiratory: No deficits noted. Airway is patent Trachea midline Respiratory effort is even, unlabored, Respiratory pattern is regular, symmetrical. GI: No deficits noted. No signs and/or symptoms were reported involving the gastrointestinal system. Abdomen is round non-distended. : No deficits noted. No signs and/or symptoms were reported regarding the genitourinary system. EENT: No deficits noted. No signs and/or symptoms were reported regarding the EENT system. Derm: generalized bruising at different stages of healing process. Musculoskeletal: Circulation, motion, and sensation intact. Capillary refill < 3 seconds, Range of motion: intact in all extremities. 08/24 01:41 General: nurse to nurse report called to MCKENZIE Sy. lg3 Vital Signs: 08/23 21:20 BP 101 / 73; Pulse 86; Resp 16 S; Temp 98.5(O); Pulse Ox 100% on R/A; Weight 81.65 kg al4 (R); Height 5 ft. 6 in. (167.64 cm) (R); 21:20 Body Mass Index 29.05 (81.65 kg, 167.64 cm) al4 ED Course: 20:56 Patient arrived in ED. ag3 21:00 Ly Prater FNP is [facility]. jh7 21:00 Raza De León MD is Attending Physician. jh7 21:17 Juan Garcia is Primary Nurse. al4 21:33 Triage completed. al4 21:55 Inserted saline lock: 22 gauge in right antecubital area, using aseptic technique. as6 Blood collected. 21:59 PT-INR Sent. lg3 21:59 CMP Sent. lg3 22:00 Abo/rh Typing Sent. lg3 22:00 CBC with Diff Sent. lg3 22:00 Quantitative Hcg Sent. lg3 22:18 PT-INR Sent. lg3 22:18 CMP Sent. lg3 22:18 Abo/rh Typing Sent. lg3 22:19 CBC with Diff Sent. lg3 22:19 Quantitative Hcg Sent. lg3 22:38 XRAY Ribs RIGHT In Process Unspecified. EDMS 23:02 Urine collected: clean catch specimen, cloudy. 23:05 CT Abd/Pelvis - IV Contrast Only In Process Unspecified. EDMS 23:48 Intiated call for Transfer to [facility], spoke with Eileen Kramer. 23:50 Patient has correct armband on for positive identification. Placed in gown. Bed in low lg3 position. Call light in reach. Side rails up X 1. Client placed on continuous cardiac and pulse oximetry monitoring. NIBP monitoring applied. Door closed. Noise minimized. Warm blanket given. Pillow given. 08/24 00:12 [facility] called back for their Dr. Florencio Dent to report to Dr. Prater. 00:15 claims coordinator, Eileen Kramer, called with acceptance of transfer and Dr. Florencio Dent as the accepting Dr. 01:36 SARS-COV-2 RT PCR Sent. lg3 01:42 No provider procedures requiring assistance completed. Patient transferred, IV remains lg3 in place. intact, No redness/swelling at site. 01:45 EMS accepted the transport. wm Administered Medications: 08/23 22:17 Drug: Zofran (Ondansetron) 4 mg Route: IVP; Site: right antecubital; lg3 22:18 Follow up: Response: No adverse reaction lg3 22:17 Drug: NS 0.9% 1000 ml Route: IV; Rate: 1 bolus; Site: right antecubital; lg3 08/24 02:01 Follow up: Response: No adverse reaction; IV Status: Completed infusion; IV Intake: lg3 1000ml 08/23 22:17 Drug: Benadryl (diphenhydrAMINE) 25 mg Route: IVP; Site: right antecubital; lg3 22:17 Follow up: Response: No adverse reaction lg3 22:18 Drug: morphine 4 mg Route: IVP; Site: right antecubital; 3 22:18 Follow up: Response: No adverse reaction 3 08/24 00:51 Drug: fentaNYL (PF) 25 mcg Route: IVP; Site: right antecubital; 3 00:51 Follow up: Response: No adverse reaction 3 Intake: 02:01 IV: 1000ml; Total: 1000ml. 3 Outcome: 08/23 23:50 Condition: stable lg3 Instructed on the need for transfer, Demonstrated understanding of instructions. 08/24 00:17 ER care complete, transfer ordered by MD. cook7 01:43 Transferred by ground EMS to [facility], Transfer form 3 completed. :43 Transferred 02:03 Patient left the ED. 3 Signatures: Dispatcher [employer] EDMS Charline Tee Sera Tran, RN RN 3 Berkley Mathis Ashby, RN RN as6 Juan Garcia al4 Ly Prater FNP SALESPERSON FLOOR COVERINGS 7 Corrections: (The following items were deleted from the chart) 08/23 21:41 21:20 Chief complaint: Patient states: heavy menstrual bleeding with clots x 3 weeks (7 al4 to 8 pads daily). patient states she has a hx of landsmans thrombosemia al4 08/24 01:35 00:51 COVID-19/FLU A+B+MOL.LAB.BRZ drawn and sent. [facility] EDSC 01:42 08/23 23:50 No provider procedures requiring assistance completed. [place] [id number] 08/24 01:42 08/23 23:50 Patient transferred, IV remains in place. intact, No redness/swelling at [facility] site. [facility] 08/24 00:43 08/23 23:50 Transferred by ground EMS to [facility], Transfer lg3 form completed. [facility] 08/24 01:43 05 23:50 Transferred [place] [id number] 08/24 01:57 08/23 23:48 Intiated call for Transfer, spoke with Eileen harris
[2021-08-24] MEDS ORDERED: FENTANYL CITR 100 MCG/2 ML ONE (00:47)
[2021-08-24 03:47] VITALS: BP 101/73; TEMP 98.5; O2SAT 100
--- NOTE | 2021-08-24 11:11 | RAD REPORT ---
EXAM DESCRIPTION: Ribs Right - 08/23/2021 10:36 pm CLINICAL HISTORY: 36 years, Female, PAIN COMPARISON: None. FINDINGS: 4 X-ray views of the right ribs were performed. No prior films are available at this time for comparison. The cardiomediastinal silhouette demonstrate to be unremarkable. Costophrenic angles are sharp. Evaluation of the lungs demonstrate no evidence for pneumothorax. There is a nondisplaced fracture at anterior lateral aspect right ninth rib. There is no evidence for pleural effusion and/or abnormal a reas of airspace opacity that will suggest lung contusion. The rest of the visualized portions of the soft tissue and bony structures demonstrate to be unremarkable. IMPRESSION: Nondisplaced fracture at the anterior lateral aspect of the right ninth rib. Electronically signed by: Maykel Pink MD 08/23/2021 11:05 PM CDT Due to temporary technical issues with the PACS/Fluency reporting system, reports are being signed by the in house radiologists without review as a courtesy to insure prompt reporting. The interpreting radiologist is fully responsible for the content of the report.
== END 2021-08-24 02:03 | disposition short-term general hospital (02) ==
LOC: ER 20:50
DX: D64.9 Anemia, unspecified (principal); S20.211A Contusion of right front wall of thorax, initial encounter; Z88.6 Allergy status to analgesic agent; Z91.048 Other nonmedicinal substance allergy status; Z20.822 Contact with and (suspected) exposure to COVID-19
CPT/HCPCS: 36415; 74177; 80053; 81003; 84702; 85025; 85610; 86900; 86901; 96361; 96374; 96375; 99285; J1200; J2405; J3010; J7030; Q9967; U0003

== ENCOUNTER 2021-09-17 23:03 | Inpatient (IN) | payer SELFPAY ==
--- OUTSIDE RECORDS SUMMARY | 2021-09-17 23:13 | XMS REPORT | Continuity of Care Document ---
:1985 Author Organization [facility] t Address [address] [place] [address] Care Team Providers Name Role Phone AKIL, Anayeli Primary Care Physician Unavailable Maya Cummins Attending Clinician Unavailable MAYELIN Attending Clinician Unavailable Doctor Unassigned, Name Attending Clinician Unavailable Jose Manuel CARLOS Attending Clinician MELISSA LR Attending Clinician Unavailable Melissa Lr MD Attending Clinician [place] Attending Clinician Unavailable Marlin Ramírez Attending Clinician Unavailable RENE Attending Clinician Unavailable Juan Manuel Reis DO Attending Clinician Misael RINCON Attending Clinician Unavailable Samuel RINCON, Leta Attending Clinician Unavailable Peggy SANDRA, M Attending Clinician Visit, Nurse Attending Clinician Unavailable Angela ARCHULETA C Attending Clinician Anayeli Alarcon Attending Clinician Holger Upton MD Attending Clinician Rocío SANDRA, S Attending Clinician Syd MARIEE, R Attending Clinician Dl SANDRA Attending Clinician Ultrasound Attending Clinician Unavailable FergusonSoraida mckinley Attending Clinician Risk Attending Clinician Unavailable David, Attending Clinician Unavailable Ricarda Moore MD Attending Clinician Eduardo SANDRA, W Attending Clinician 2, [facility] Attending Clinician Unavailable Aries SANDRA Attending Clinician Faculty, [facility] Attending Clinician Unavailable Emy ARCHULETA, Bubba Attending Clinician Damien Olmos MD Attending Clinician Luigi Cordero Attending Clinician Chaparro Patel Attending Clinician 5, [facility] Attending Clinician Unavailable Chato SANDRA, Mabel Attending Clinician Rj SANDRA, F Attending Clinician Jose C SANDRA Attending Clinician Maya Cummins Admitting Clinician Unavailable MELISSA LR Admitting Clinician Unavailable Melissa Lr MD Admitting Clinician [place] Admitting Clinician Unavailable Physician, Primary or Family Admitting Clinician Unavailmojgan Woods MD, M Admitting Clinician Dl SANDRA Admitting Clinician Damien Olmos MD Admitting Clinician Payers Payer Name Policy Type Policy Number Effective Date Expiration Date S ource MEDICAID OF [place] [id number] 2018 00:00:00 Problems Condition Condition Condition Status Onset Resolution Last Treating Co mments Source Name Details Category Date Date Treatment Clinician Date Anemia Anemia Disease Active 2021-0 Univers 5-10 ity of 00:00: [address] Abnormal Abnormal Disease Active 2018-04 Unive rs TSH TSH 0-18 ity of 00:00: [place] [facility] Fatty Fatty Disease Active 2018-04 Univers liver liver 0-18 ity of 00:00: [address] Other Other Disease Active 2018-04 Univers fatigue fatigue 0-18 ity of 00:00: [place] [facility] Severe Severe Disease Active Univers pre-eclamp pre-eclamp 9-17 it y of richard, richard, 00:00: [place] 00 Me dical condition condition Bran ch or or complicati complicati on on 37 weeks 37 weeks Disease Active Unive rs gestation gestation 9-05 ity of of of 00:00: [place] 00 [facility] Research Research Disease Active Overview: Un brayden study study 12-13 Formattin ity of patient: patient: 00:00: g of this [place]io as ECCCO: ECCCO: 00 note Medical Group C Group C might be Branch different from the original. Notice of research participa tion in the ECCCO Trial: IRB # [...] will give the patient a study questionn e before discharge home. Patient will remain in the study until completio n of questionn aire. Delivery samples do not need to be collected . Please page the Research Departmen t. If you should have questions or concerns, you may page the PRD at . Disease Active U nivers anemia anemia 8-05 ity of 00:00: [place] [facility] Branch Anemia of Anemia of Disease Active Uni vers mother in mother in 8-05 ity of , , 00:00[place] antepartum antepartum 00 Me dical Branch Obesity Obesity Disease Active Univers (BMI (BMI 7-08 ity of 30-39.9) 30-39.9) 00:00: [facility] Branch Rubella Rubella Disease Active Univers non-immune non-immune 6-25 it y of status, status, 00:00: [place] antepartum antepartum 00 Me dical Branch Need for Need for Disease Active Unive rs immunizati immunizati 6-25 it y of on against on against 00:00: [place] rubella rubella 00 Medical Branch Placental Placental Disease Active Uni vers abnormalit abnormalit 6-25 it y of y y 00:00: [place] [facility] ASCUS with ASCUS with Disease Active Overview : Univers positive positive 2-19 Formattin ity of high risk high risk 00:00: g of this [place] human human 00 note 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 Schedule patient for colpo 6 weeks pp Multiparit Multiparit Disease Active U nivers y y 2-12 ity of 00:00: [place] [facility] History of History of Disease Active Overview : Univers 2-12 Formattin ity of section section 00:00: g of this [place] 00 note Medical might be Branch different from the original. X2 High risk High risk Disease Active Uni vers , , 2-12 it y of antepartum antepartum 00:00: [place] [facility] [place] Obesity in Obesity in Disease [...] 1-17 [facility] [place] iron DA Active U UNKNOWN 2020- [facility] 1-17 [facility] 00:[facility]: [facility] 00 [...] DRUG Active Unknown-Cmnt Un brayden IN INGREDI - ity of 00:00: [place] 00 Medical Branch Aspirin Propensi Active Unknown - Unable to U nivers ty to See comments 12-24 take d/t it y of adverse 00:00: clotting [place] reaction 00 disorder. Medic al s Branch ASPIRIN DRUG Active Unknown-Cmnt Uni vers INGREDI 12-24 ity of 00:00: [place] 00 Medical [place] Social History Social Habit Start Date Stop Date Quantity Comments Source ASSERTION 2018-04-15 [facility] 00:00:00 [facility] Alcohol Comment occasionally Univers ity of [facility] Exposure to 2021-08-14 2021-08-24 Not sure [facility] SARS-CoV-2 00:00:00 03:18:00 [facility] (event) [place] Alcohol intake 2021-08-24 2021-08-24 0 /d University of 00:00:00 00:00:00 [facility] Education 2021-08-24 2021-08-24 14 University of 00:00:00 00:00:00 [facility] Tobacco Comment 2018-05-29 2018-05-29 1 pack per week; Uni versity of 00:00:00 00:00:00 quit 2016 [facility] Tobacco use and 2016-06-20 2016-06-20 Never used Universit y of exposure 00:00:00 00:00:00 [facility] Cigarettes smoked 2016-06-20 2016-06-20 Univers ity of current (pack per 00:00:00 00:00:00 [facility] ) - Reported Branch Cigarette 2016-06-20 2016-06-20 University of pack-years 00:00:00 00:00:00 [facility] History of 2015-06-21 Cigarette Smoker [facility] ty of tobacco use 00:00:00 [facility] Sex Ass[birth year] At [birth year] Universit y of 00:00:00 00:00:00 [facility] Smoking Status Start Date Stop Date Source Former smoker 2016-06-20 00:00:00 2016-06-20 00:00:00 [facility] Medications Ordered Filled Start Stop Current Ordering Indication Dosage Frequency Signature Comments Components Source Medication Medication Date Date Medication? Clinician (SIG) Name Name ferrous Yes [id number] 325mg Take 1 Uni vers sulfate 325 5-13 tablet by ity of mg (65 mg 00:00: mouth [place] iron) 00 daily. [facility] ferrous Yes [id number] 325mg Take 1 Uni vers sulfate 325 5-13 tablet by ity of mg (65 mg 00:00: mouth [place] iron) 00 daily. [facility] ferrous Yes [id number] 325mg Take 1 Uni vers sulfate 325 5-13 tablet by ity of mg (65 mg 00:00: mouth [place] iron) 00 daily. [facility] vitamin 2021- No 500ug Take 500 Univ ers B-12 500 5-12 05-12 mcg by ity of mcg tablet 11:10: 00:00 [facility] 54 :00 daily. [facility] vitamin C 2021- No 100mg Take 100 Un brayden 100 mg 5-12 05-12 mg by ity of tablet 11:10: 00:00 mouth [place] 54 :00 daily. [facility] tranexamic Yes 650mg 650 mg, Uni vers acid 5-12 Oral, TID, ity of (LYSTEDA) 01:00: First dose [place] tablet 650 00 on Mon Medical mg 08/25/21 at Branch 1999, Until Discontinu ed, Routine tranexamic Yes [id number] Take Uni vers acid 650 mg 5-12 ity of tablet 00:00: [place] 00 [facility] tranexamic 0 Yes [id number] Take Uni vers acid 650 mg 5-12 ity of tablet 00:00: [place] 00 [facility] tranexamic 2021-0 Yes [id number] Take Uni vers acid 650 mg 5-12 ity of tablet 00:00: [place] 00 [facility] Branch iron 2021- No 300mg 300 mg, IV Unive rs sucrose 08-25 Infusion, ity of (VENOFER) 22:45: 02:56 ONCE, [place] 300 mg in 00 :00 Administer Medi frank NaCl 0.9% over 4 Branch (NS) 250 mL Hours, On infusion Mon08/25/21 at 1745, For 1 dose diphenhydrA 2021- No 25mg 25 mg, Uni vers MINE 08-25 Slow IV ity of (BENADRYL) 22:32: 22:55 Push, [place] injection 00 :00 ONCE, 1 Medical 25 mg dose, On Branch Mon08/25/21 at 1745, Routine ferrous Yes 325mg 325 mg, Univer s sulfate 08-25 Oral, ity of tablet 325 14:00: DAILY, [place] mg 00 First dose Medical on Mon Branch 08/25/21 at 0900, Until Discontinu ed, Routine coagulation 2021- No 7000ug 7,000 mcg, Univers factor viia 08-25 Slow IV ity of recomb 03:00: 02:32 Push, [place] (NOVOSEVEN) 00 :00 ONCE, 1 Medic al injection dose, On Branch 7,000 mcg Mon08/24/21 at 2200, Routine
Use approved by (Faculty and pager): Alexander AUSTIN, HEMATOLOGY /ONCOLOGY acetaminoph Yes 650mg 650 mg, Un brayden en 08-25 Oral, ity of (TYLENOL) 01:00: Q12H, [place] tablet 650 00 First dose Med ical mg (after Branch last modificati on) on Mon08/24/21 at 2000, Until Discontinu ed, Routine HYDROcodone 0 Yes 1{tbl} 1 tablet, Univers -acetaminop -11 Oral, Q6H ity of hen (NORCO) 00:05: ABX, First [place] 10-325 mg 00 dose Medical tablet 1 (after Branch tablet last modificati on) on Mon08/24/21 at 1915, Until Discontinu ed, Routine diphenhydrA 2021- No 25mg 25 mg, Uni vers MINE 5-10 05-11 Slow IV ity of (BENADRYL) 23:15: 02:43 Push, [place] injection 00 :00 ONCE, 1 Medical 25 mg dose, On Branch Mon08/24/21 at 1815, Routine gabapentin Yes 300mg 300 mg, Uni vers (NEURONTIN) 5-10 Oral, TID, it y of capsule 300 19:00: First dose [place] mg 00 on Mon Medical 08/24/21 at Branch 1400, Until Discontinu ed, Routine acetaminoph 2021- No 650mg 650 mg, U nivers en 5- 05-10 Oral, Q8H, ity of (TYLENOL) 19:00: 20:26 First dose [place] tablet 650 00 :00 on Mon [facility] mg 08/24/21 at [place] 1400, Until Discontinu ed, Routine HYDROcodone 2021- No 1{tbl} 1 tablet, Univers -acetaminop - 05-10 Oral, ity of hen (NORCO) 17:23: 20:26 Q4HPRN, [place] 10-325 mg 59 :00 Starting Medica l tablet 1 on Mon [place] tablet 08/24/21 at 1223, Until Mon08/24/21 at 1526, Routine, Pain (scale 7-10) simethicone Yes 160mg 160 mg, Un brayden (GAS RELIEF 5-10 Oral, ity of (SIMETHICON 14:00: PC+HS, [place] E)) 00 First dose Medical chewable on Mon [place] tablet 160 08/24/21 at mg 0900, Until Discontinu ed, Routine docusate Yes 100mg 100 mg, Unive rs (COLACE) 5-10 Oral, ity of capsule 100 13:00: Q12H, [place] mg 00 First dose Medical on [facility] 08/24/21 at 0800, Until Discontinu ed, Routine tranexamic 2021- No 650mg 650 mg, Un brayden acid 5-10 05-10 Oral, TID, ity of (LYSTEDA) 13:00: 20:21 15 doses, [place] tablet 650 00 :31 First dose Med ical mg on Mon08/24/21 at 0800, Last dose on 08/28/21 at 2000, Routine morpHINE (4 2021- No 4mg 4 mg, Slow Univers mg/mL) 5 05-10 IV Push, ity of injection 4 10:18: 11:26 ONCE, 1 [place] mg 00 :00 dose, On Medical Tue Branch 08/24/21 at 0530, Routine diphenhydrA 2021- No 25mg 25 mg, Uni vers MINE 08-24 05-10 Slow IV ity of (BENADRYL) 10:00: 15:06 Push, [place] injection 00 :00 ONCE, 1 Medical 25 mg dose, On Branch 08/24/21 at 0500, Routine vitamin 2018-04 Yes 500ug Take 500 Unive [...] Yes 150mg 150 mg, Un brayden ESTERone -17 Intramuscu ity o f (DEPO-PROVE 15:15: lar, [place] RA) 00 [id number], Medical injection First dose Bran ch 150 mg on e 9/17/19 at 1015, Until Discontinu ed, Routine butalbital- 2018- 2019- No 2{tbl} 2 tablet, Univers acetaminoph 01-01 Oral, ity of en-caff 14:45: 13:52 ONCE, 1 [place] (ESGIC) 00 :00 dose, Tue Medical 50-325-40 01/01/19 at Bran ch mg tablet 2 0945, tablet Routine HYDROcodone 2019- No 1{tbl} 1 tablet, Univers -acetaminop 01-01 Oral, ity of hen (NORCO 10:00: 08:55 ONCE, 1 [place] as 5) 5-325 mg 00 :00 dose, Tue Med ical tablet 1 01/01/19 at Bran h tablet 0500, Routine HYDROcodone 2019- No 1{tbl} 1 tablet, Univers -acetaminop 01-01 Oral, ity of hen (NORCO 06:45: 05:56 ONCE, 1 [place] as 5) 5-325 mg 00 :00 dose, Tue Med ical tablet 1 01/01/19 at Branc h tablet 0145, Routine D5W 0.45% 0 Yes 1000mL at 100 Univ ers NaCl [...] 2315, Until Mon01/01/19 at 1114, SUSI calcium 2018-0 Yes 1000mg 1,000 mg, Uni vers gluconate 01-01 Slow IV ity of 100 mg/mL 04:07: Push, PRN [place] as (10%) 00 - SEE Medical injection INSTRUCTIO Bran ch 1,000 mg NS, Starting Mon12/31/18 at 2307, Until Discontinu ed, Routine, magnesium toxicity magnesium 0 Yes 4g 32 mEq (4 Uni vers sulfate 4 9-17 g), Slow ity of mEq/mL (50 04:07: IV Push, [place] as %) 00 PRN - SEE Medical injection INSTRUCTIO Bran ch 32 mEq NS, Starting 12/31/18 at 2307, Until Discontinu ed, Routine, For seizure activity (patient not on magnesium sulfate) magnesium 2018- Yes 2g 16 mEq (2 Uni vers sulfate 4 9-17 g), Slow ity of mEq/mL (50 04:07: IV Push, [place] as %) 00 PRN - SEE Medical injection INSTRUCTIO Bran ch 16 mEq NS, 2 doses, Starting 12/31/18 at 2307, Until Discontinu ed, Routine, For seizure activity (patient already on magnesium sulfate) HYDROcodone 2018- Yes [id number] 1{tbl} Take 1 Univers -acetaminop 9-17 tablet by ity of hen 5-325 00:00: mouth [place] mg tablet 00 every 6 Medical (six) Branch hours as needed for Pain (scale 4-6). hydroCHLORO 2018- Yes [id number] 50mg Take 1 Univers thiazide 50 9-17 [...] mg 12/28/18 at Branch 2130, SUSI morpHINE 2019- No 4mg 4 mg, Slow Un brayden injection 4 9-14 09-14 IV Push, ity of mg 02:30: 02:09 ONCE, 1 [place] 00 :00 dose, Fri Medical 12/28/18 at Branch 2130, STAT furosemide 2018-0 Yes [id number] 40mg Take 1 Univers (LASIX) 40 9-14 tablet by ity of mg tablet 00:00: mouth [place] 00 daily. [facility] Branch hydrALAZINE 2018- Yes [id number] 10mg Take 1 Univers 10 mg 9-14 tablet by ity of tablet 00:00: mouth [place] 00 every 6 Medical (six) Branch hours. furosemide 2019- Yes [id number] 40mg Take 1 Univers (LASIX) 40 9-14 tablet by ity of mg tablet 00:00: mouth [place] 00 daily. [facility] hydrALAZINE Yes [id number] 10mg Take 1 Univers 10 mg 9-14 tablet by ity of tablet 00:00: mouth [place] 00 every 6 Medical (six) Branch hours. furosemide 2019- Yes [id number] 40mg Take 1 Univers (LASIX) 40 9-14 tablet by ity of mg tablet 00:00: mouth [place] 00 daily. [facility] hydrALAZINE Yes [id number] 10mg Take 1 Univers 10 mg 9-14 tablet by ity of tablet 00:00: mouth [place] 00 every 6 Medical (six) Branch hours. furosemide 2018-0 Yes [id number] 40mg Take 1 Univers (LASIX) 40 9-14 tablet by ity of mg tablet 00:00: mouth [place] 00 daily. [facility] hydrALAZINE 2018- Yes [id number] 10mg Take 1 Univers 10 mg 9-14 tablet by ity of tablet 00:00: mouth [place] 00 every 6 Medical (six) Branch hours. furosemide 2018- 2019- No [id number] 40mg Take 1 Univers (LASIX) 40 9-14 -17 tablet by ity of mg tablet 00:00: 00:00 mouth [place] 00 :00 daily. [facility] Branch hydrALAZINE 2019- No [id number] 10mg Take 1 Univers 10 mg 9-14 -17 tablet by ity of tablet 00:00: 00:00 mouth [place] 00 :00 every 6 Medical (six) Branch hours. vitamin 2019-0 Yes 500ug Take 500 Unive rs B-12 500 9- mcg by ity of mcg tablet 18:49: mouth [place] 42 daily. Medical Branch vitamin C 2018- Yes 100mg Take 100 Uni vers 100 mg 9-09 mg by ity of tablet 18:49: mouth [place] 42 daily. Medical Branch vitamin 2019- Yes 500ug Take 500 Unive rs B-12 500 9-09 mcg by ity of mcg tablet 18:49: mouth [place] 42 daily. Medical Branch vitamin C 2018- Yes [...] mouth [place] 42 daily. Medical Branch vitamin 2018- Yes 500ug Take 500 Unive rs B-12 500 9-09 mcg by ity of mcg tablet 18:49: mouth [place] 42 daily. Medical Branch vitamin C Yes 100mg Take 100 Uni vers 100 mg 9-09 mg by ity of tablet 18:49: mouth [place] 42 daily. Medical Branch vitamin 2018- Yes 500ug [...] mcg tablet 18:49: mouth [place] 42 daily. [facility] Branch vitamin C Yes 100mg Take 100 [...] injection 4 19 Starting Medi frank mg Mon12/24/18 Branch at 0127, Until Discontinu ed, Routine, Nausea and Vomiting (N/V) bisacodyl [id number] Yes 10mg 10 mg, Univer s (DULCOLAX) 12-24 Rectal, ity of suppository 06:27: QDAILYPRNCherry 10 mg 19 Starting Medical 12/24/18 Branch at 0127, Until Discontinu ed, Routine, Constipati on simethicone Yes 160mg 160 mg, Un brayden (GAS 12-24 Oral, ity of RELIEF) 06:27: PC+HSPRNCherry chewable 19 Starting Medical tablet 160 Mon12/24/18 Bra nch mg at 0127, Until Discontinu ed, Routine, Gas docusate Yes 240mg 240 mg, Unive rs calcium 12-24 Oral, ity of (SURFAK) 06:27: QDZACHARIAHYPMCKENZIE [place] as capsule 240 19 Starting Medi frank mg Mon12/24/18 Branch at 0127, Until Discontinu ed, Routine, Constipati on magnesium 0 Yes 30mL 30 mL, Univer s hydroxide 12-24 Oral, ity of (MILK OF 06:27: QDAILYPRN [place] as MAGNESIA) 19 Starting Medica l 400 mg/5 mL Mon12/24/18 Br anch suspension at 0127, 30 mL Until Discontinu ed, Routine, Constipati on HYDROcodone 0 Yes 1{tbl} 1 tablet, Univers -acetaminop 12-24 Oral, ity of hen (NORCO) 05:07: Q6HPRN, [place] as 10-325 mg 35 Starting Medica l tablet 1 Mon12/24/18 Branc h tablet at 0007, Until Discontinu ed, Routine, Pain (scale 7-10) docusate Yes [id number] 240mg Take 1 U nivers calcium 240 9-09 capsule by it y of mg capsule 00:00: mouth once [place] 00 daily as Medical needed for Branch Constipati on. HYDROcodone Yes [id number] 1{tbl} Take 1 Univers -acetaminop 9-09 tablet by ity of hen 5-325 00:00: mouth [place] mg tablet 00 every 6 Medical (six) Branch hours as needed for Pain (scale 4-6) (If uncontroll ed by Ibuprofen) . simethicone Yes [id number] 160mg Take 2 Univers 80 mg 9-09 tablets by ity of chewable 00:00: mouth [place] tablet 00 after Medical meals and Branch at bedtime as needed for Gas. docusate Yes [id number] 240mg Take 1 U nivers calcium 240 9-09 capsule by it y of mg capsule 00:00: mouth once [place] 00 daily as Medical needed for Branch Constipati on. HYDROcodone Yes [id number] 1{tbl} Take 1 Univers -acetaminop 9-09 tablet by ity of hen 5-325 00:00: mouth [place] mg tablet 00 every 6 Medical (six) Branch hours as needed for Pain (scale 4-6) (If uncontroll ed by Ibuprofen) . simethicone Yes [id number] 160mg Take 2 Univers 80 mg 9-09 tablets by ity of chewable 00:00: mouth [place] tablet 00 after Medical meals and Branch at bedtime as needed for Gas. docusate Yes [id number] 240mg Take 1 U nivers calcium 240 9-09 capsule by it y of mg capsule 00:00: mouth once [place] 00 daily as Medical needed for Branch Constipati on. HYDROcodone Yes [id number] 1{tbl} Take 1 Univers -acetaminop 9-09 tablet by ity of hen 5-325 00:00: mouth [place] mg tablet 00 every 6 Medical (six) Branch hours as needed for Pain (scale 4-6) (If uncontroll ed by Ibuprofen) . simethicone Yes [id number] 160mg Take 2 Univers 80 mg 9-09 tablets by ity of chewable 00:00: mouth [place] tablet 00 after Medical meals and Branch at bedtime as needed for Gas. docusate Yes [id number] 240mg Take 1 U nivers calcium 240 9-09 capsule by it y of mg capsule 00:00: mouth once [place] 00 daily as Medical needed for Branch Constipati on. HYDROcodone Yes [id number] 1{tbl} Take 1 Univers -acetaminop 9-09 tablet by ity of hen 5-325 00:00: mouth [place] mg tablet 00 every 6 Medical (six) Branch hours as needed for Pain (scale 4-6) (If uncontroll ed by Ibuprofen) . simethicone Yes [id number] 160mg Take 2 Univers 80 mg 9-09 tablets by ity of chewable 00:00: mouth [place] tablet 00 after Medical meals and Branch at bedtime as needed for Gas. docusate Yes [id number] 240mg Take 1 U nivers calcium 240 9-09 capsule by it y of mg capsule 00:00: mouth once [place] 00 daily as Medical needed for Branch Constipati on. HYDROcodone Yes [id number] 1{tbl} Take 1 Univers -acetaminop 9-09 tablet by ity of hen 5-325 00:00: mouth [place] mg tablet 00 every 6 Medical (six) Branch hours as needed for Pain (scale 4-6) (If uncontroll ed by Ibuprofen) . simethicone Yes [id number] 160mg Take 2 Univers 80 mg 9-09 tablets by ity of chewable 00:00: mouth [place] tablet 00 after Medical meals and Branch at bedtime as needed for Gas. docusate Yes [id number] 240mg Take 1 U nivers calcium 240 9-09 capsule by it y of mg capsule 00:00: mouth once [place] 00 daily as Medical needed for Branch Constipati on. HYDROcodone Yes [id number] 1{tbl} Take 1 Univers -acetaminop 9-09 tablet by ity of hen 5-325 00:00: mouth [place] mg tablet 00 every 6 Medical (six) Branch hours as needed for Pain (scale 4-6) (If uncontroll ed by Ibuprofen) . simethicone Yes [id number] 160mg Take 2 Univers 80 mg 9-09 tablets by ity of chewable 00:00: mouth [place] tablet 00 after Medical meals and Branch at bedtime as needed for Gas. docusate Yes [id number] 240mg Take 1 U nivers calcium 240 12-24 capsule by it y of mg capsule 00:00: mouth once [place] 00 daily as Medical needed for Branch Constipati on. simethicone Yes [id number] 160mg Take 2 Univers 80 mg 12-24 tablets by ity of chewable 00:00: mouth [place] tablet 00 after Medical meals and Branch at bedtime as needed for Gas. HYDROcodone 2019- No [id number] 1{tbl} Take 1 Univers -acetaminop 12-24 tablet by it y of hen 5-325 [...] IV ity of (CYKLOKAPRO 15:17: 23:29 Piggyback, [place] N) 1,000 mg 00 :00 Q8H ABX, [...] uncontroll ed by Ibuprofen coagulation 2019- No [id number] 10,000 Univers factor viia 12-22 mcg, Slow it y of recomb 12:00: 13:56 IV Push, [place] (NOVOSEVEN) 00 :00 ONCE, 1 Medic al injection dose, Sat Branc h 10,000 mcg 12/22/18 at 0700, SUSI
Us e approved by (Faculty and pager): Suresh SAUNDERS , [id number], HEMATOLOGY /ONCOLOGY HYDROcodone Yes 1{tbl} 1 tablet, [...] mg 12/22/18 at Branch 0215, Routine coagulation 2018- No [id number] 10,000 Univers factor viia 12-22 mcg, Slow it y of recomb 07:15: 06:54 IV Push, [place] (NOVOSEVEN) 00 :00 ONCE, 1 Medic al injection dose, Sat Branc h 10,000 mcg 12/22/18 at 0215, Routine
Use approved by (Faculty and pager): Suresh SAUNDERS [id number], HEMATOLOGY /ONCOLOGY hydrocortis Yes 25mg 25 mg, Univ ers one 12-22 Rectal, ity of (ANUSOL-HC) 04:10: BIDPRN, [place] as suppository 37 Starting Medi frank 25 mg 12/21/18 Branch at 2310, Until Discontinu ed, Routine, Rectal itching/pa in coagulation 2019- No 9000ug 9,000 mcg, Univers factor viia 12-22 Slow IV ity of recomb 02:45: 02:13 Push, [place] (NOVOSEVEN) 00 :00 ONCE, 1 Medic al injection dose, Fri Branc h 9,000 mcg 12/21/18 at 2145, Routine
Use approved by (Faculty and pager): Suresh SAUNDERS [id number], HEMATOLOGY /ONCOLOGY coagulation 2019- No [id number] 10,000 Univers factor viia 12-21 mcg, Slow it y of recomb 20:00: 20:27 IV Push, [place] (NOVOSEVEN) 00 :00 ONCE, 1 Medic al injection dose, Fri Branc h 10,000 mcg 12/21/18 at 1500, SUSI
Us e approved by (Faculty and pager): Suresh SAUNDERS [id number], HEMATOLOGY /ONCOLOGY morpHINE 30 2019- No Unive rs mg/30 mL 12-21 ity of (fixed 18:00: 06:27 [place] dose) [employer] 00 :24 Medical injection [place] coagulation 2019- No [id number] 10,000 Univers factor viia 12-21 mcg, Slow it y of recomb 17:10: 17:55 IV Push, [place] (NOVOSEVEN) 00 :00 ONCE, 1 Medic al injection dose, Mon Branc h 10,000 mcg 12/21/18 at 1215, SUSI
Us e approved by (Faculty and pager): Suresh SAUNDERS , [id number], HEMATOLOGY /ONCOLOGY LR 1000 mL 2018- No [...] 1000mL at 75 Univer s ringers IV 06 mL/hr, ity of infusion 16:30: 1,000 mL, [place] 1,000 mL 00 IV Medical Infusion, Branch CONTINUOUS , Starting Mon12/21/18 at 1130, Until Discontinu ed, Routine, PACU morpHINE Yes 2mg 2 mg, Slow Uni vers injection 2 12-21 IV Push, ity of mg 16:26: Q5MIN PRN, [place] 05 5 doses, Medical Starting Branch Mon12/21/18 [...] PACU 2019- No 1{tbl} 1 tablet, U nivers vitamin 12-21 Oral, ity of w/FA 14:00: 06:27 DAILY, [place] (PRENATABS 00 :24 First dose Med ical [...] Surgical Prophylaxi s
[place] rgical Prophylaxi s: NURSING HOME ASSISTANT
Duration of therapy: within 24 hours of surgery clindamycin 2018- No 900mg 900 mg, IV Univers in 5 % 12-21 Piggyback, ity of dextrose 11:23: 15:17 O.R. [place] (CLEOCIN) 04 :00 HOLDING Medical 900 mg/50 ONCE, 1 Branch mL dose, Piggyback Starting 900 mg Mon12/21/18 at 0623, Until Discontinu ed, 50 mL
Facu lty member approving Restricted medication : OB FACULTY
Reason for Anti-Infec tive: Surgical Prophylaxi s
Surgi frank Prophylaxi s: NURSING HOME ASSISTANT
Duration of therapy: within 24 hours of surgery
Restricte d use approved by: NURSING HOME ASSISTANT FACULTY sodium 2019- No 30mL 30 mL, Univers citrate-cit 12-21 Oral, ity of marino acid 11:22: 14:47 PRE-PROCED [place] (BICITRA[place] 44 :00 URE ONCE, Medic al 500-334 1 dose, Branch mg/5 mL Starting solution 30 Mon12/21/18 mL at 0622, Until Discontinu ed, Routine, Surgery docusate 2019- 2019- No 240mg 240 mg, Univ ers calcium 12-21 Oral, ity of (SURFAK) 01:45: 06:27 QHSPRN, [place] capsule 240 30 :24 Starting Medi frank mg [place] 12/20/18 Branch at 2045, Until 12/24/18 at 0127, Routine, Constipati on vitamin 2019-0 Yes 500ug Take 500 Unive [...] [place] 26 daily. Medical Branch vitamin C 2019- Yes [...] 18 daily. Medical Branch ferrous 2019-0 Yes [id number] 325mg Take 1 Un brayden sulfate 325 7-02 tablet by ity of mg (65 mg 00:00: mouth 2 [place] iron) 00 (two) Medical tablet times Branch daily. ferrous 2019-0 Yes [id number] 325mg Take 1 Un brayden sulfate 325 7-02 tablet by ity of mg (65 mg 00:00: mouth 2 [place] iron) 00 (two) Medical tablet times Branch daily. ferrous 2019-0 Yes [id number] 325mg Take 1 Un brayden sulfate 325 7-02 tablet by ity of mg (65 mg 00:00: mouth 2 [place] iron) 00 (two) Medical tablet times Branch daily. ferrous 2019-0 Yes [id number] 325mg Take 1 Un brayden sulfate 325 7-02 tablet by ity of mg (65 mg 00:00: mouth 2 [place] iron) 00 (two) Medical tablet times Branch daily. ferrous 2019-0 Yes [id number] 325mg Take 1 Un brayden sulfate 325 7-02 tablet by ity of mg (65 mg 00:00: mouth 2 [place] iron) 00 (two) Medical tablet times Branch daily. ferrous 2019-0 Yes [id number] 325mg Take 1 Un brayden sulfate 325 7-02 tablet by ity of mg (65 mg 00:00: mouth 2 [place] iron) 00 (two) Medical tablet times Branch daily. ferrous 2019-0 Yes [id number] 325mg Take 1 Un brayden sulfate 325 7-02 tablet by ity of mg (65 mg 00:00: mouth 2 [place] iron) 00 (two) Medical tablet times Branch daily. ferrous 2019-0 Yes [id number] 325mg Take 1 Un brayden sulfate 325 7-02 tablet by ity of mg (65 mg 00:00: mouth 2 [place] iron) 00 (two) Medical tablet times Branch daily. ferrous 2019-0 Yes [id number] 325mg Take 1 Un brayden sulfate 325 7-02 tablet by ity of mg (65 mg 00:00: mouth 2 [place] iron) 00 (two) Medical tablet times Branch daily. ferrous 2019-0 Yes [id number] 325mg Take 1 Un brayden sulfate 325 7-02 tablet by ity of mg (65 mg 00:00: mouth 2 [place] iron) 00 (two) Medical tablet times Branch daily. ferrous 2019-0 Yes [id number] 325mg Take 1 Un brayden sulfate 325 7-02 tablet by ity of mg (65 mg 00:00: mouth 2 [place] iron) 00 (two) Medical tablet times Branch daily. ferrous 2018-0 Yes [id number] 325mg Take 1 Un brayden sulfate 325 7-02 tablet by ity of mg (65 mg 00:00: mouth 2 [place] iron) 00 (two) Medical tablet times Branch daily. ferrous 2019-0 Yes [id number] 325mg Take 1 Un brayden sulfate 325 7-02 tablet by ity of mg (65 mg 00:00: mouth 2 [place] iron) 00 (two) Medical tablet times Branch daily. ferrous 2019-0 Yes [id number] 325mg Take 1 Un brayden sulfate 325 7-02 tablet by ity of mg (65 mg 00:00: mouth 2 [place] iron) 00 (two) Medical tablet times Branch daily. ferrous 2019-0 Yes [id number] 325mg Take 1 Un brayden sulfate 325 7-02 tablet by ity of mg (65 mg 00:00: mouth 2 [place] iron) 00 (two) Medical tablet times Branch daily. ferrous 2019-0 Yes [id number] 325mg Take 1 Un brayden sulfate 325 7-02 tablet by ity of mg (65 mg 00:00: mouth 2 [place] iron) 00 (two) Medical tablet times Branch daily. ferrous 2019-0 Yes [id number] 325mg Take 1 Un brayden sulfate 325 7-02 tablet by ity of mg (65 mg 00:00: mouth 2 [place] iron) 00 (two) Medical tablet times Branch daily. ferrous 2019-0 Yes [id number] 325mg Take 1 Un brayden sulfate 325 7-02 tablet by ity of mg (65 mg 00:00: mouth 2 [place] iron) 00 (two) Medical tablet times Branch daily. ferrous 2019-0 Yes [id number] 325mg Take 1 Un brayden sulfate 325 7-02 tablet by ity of mg (65 mg 00:00: mouth 2 [place] iron) 00 (two) Medical tablet times Branch daily. ferrous 2018-0 Yes [id number] 325mg Take 1 Un brayden sulfate 325 7-02 tablet by ity of mg (65 mg 00:00: mouth 2 [place] iron) 00 (two) Medical tablet times Branch daily. ferrous 2019-0 Yes [id number] 325mg Take 1 Un brayden sulfate 325 7-02 tablet by ity of mg (65 mg 00:00: mouth 2 [place] iron) 00 (two) Medical tablet times Branch daily. ferrous 2018-0 Yes [id number] 325mg Take 1 Un brayden sulfate 325 7-02 tablet by ity of mg (65 mg 00:00: mouth 2 [place] iron) 00 (two) Medical tablet times Branch daily. ferrous 2018-0 Yes [id number] 325mg Take 1 Un brayden sulfate 325 7-02 tablet by ity of mg (65 mg 00:00: mouth 2 [place] iron) 00 (two) Medical tablet times Branch daily. ferrous 2018-0 Yes [id number] 325mg Take 1 Un brayden sulfate 325 7-02 tablet by ity of mg (65 mg 00:00: mouth 2 [place] iron) 00 (two) Medical tablet times Branch daily. ferrous 2018-0 Yes [id number] 325mg Take 1 Un brayden sulfate 325 7-02 tablet by ity of mg (65 mg 00:00: mouth 2 [place] iron) 00 (two) Medical tablet times Branch daily. ferrous 2019-0 Yes [id number] 325mg Take 1 Un brayden sulfate 325 7-02 tablet by ity of mg (65 mg 00:00: mouth 2 [place] iron) 00 (two) Medical tablet times Branch daily. ferrous 2019-0 Yes [id number] 325mg Take 1 Un brayden sulfate 325 7-02 tablet by ity of mg (65 mg 00:00: mouth 2 [place] iron) 00 (two) Medical tablet times Branch daily. ferrous 2019-0 Yes [id number] 325mg Take 1 Un brayden sulfate 325 7-02 tablet by ity of mg (65 mg 00:00: mouth 2 [place] iron) 00 (two) Medical tablet times Branch daily. ferrous 2019-0 Yes [id number] 325mg Take 1 Un brayden sulfate 325 7-02 tablet by ity of mg (65 mg 00:00: mouth 2 [place] iron) 00 (two) Medical tablet times Branch daily. ferrous 2019-0 Yes [id number] 325mg Take 1 Un brayden sulfate 325 7-02 tablet by ity of mg (65 mg 00:00: mouth 2 [place] iron) 00 (two) Medical tablet times Branch daily. ferrous 2019-0 Yes [id number] 325mg Take 1 Un brayden sulfate 325 7-02 tablet by ity of mg (65 mg 00:00: mouth 2 [place] iron) 00 (two) Medical tablet times Branch daily. ferrous 2018-0 Yes [id number] 325mg Take 1 Un brayden sulfate 325 7-02 tablet by ity of mg (65 mg 00:00: mouth 2 [place] iron) 00 (two) Medical tablet times Branch daily. ferrous 2018- Yes [id number] 325mg Take 1 Un brayden sulfate 325 7-02 tablet by ity of mg (65 mg 00:00: mouth 2 [place] iron) 00 (two) Medical tablet times Branch daily. ferrous 2019- Yes [id number] 325mg Take 1 Un brayden sulfate 325 7-02 tablet by ity of mg (65 mg 00:00: mouth 2 [place] iron) 00 (two) Medical tablet times Branch daily. ferrous 2019-0 Yes [id number] 325mg Take 1 Un brayden sulfate 325 7-02 tablet by ity of mg (65 mg 00:00: mouth 2 [place] iron) 00 (two) Medical tablet times Branch daily. ferrous 2018- Yes [id number] 325mg Take 1 Un brayden sulfate 325 7-02 tablet by ity of mg (65 mg 00:00: mouth 2 [place] iron) 00 (two) Medical tablet times Branch daily. ferrous 2019-0 Yes [id number] 325mg Take 1 Un brayden sulfate 325 7-02 tablet by ity of mg (65 mg 00:00: mouth 2 [place] iron) 00 (two) Medical tablet times Branch daily. ferrous 2019-0 Yes [id number] 325mg Take 1 Un brayden sulfate 325 7-02 tablet by ity of mg (65 mg 00:00: mouth 2 [place] iron) 00 (two) Medical tablet times Branch daily. ferrous 20182021- No [id number] 325mg Take 1 U nivers sulfate 325 10-16 05-12 tablet by it y of mg (65 mg 00:00: 00:00 [place] 00 :00 (two) Medical tablet times Branch daily. PNV 67-iron 2018- Yes [id number] 1{each} Take 1 Univers ps-folate 4-05 Each by ity of no.1-dha 00:00: mouth [place] (VITAFOL 00 daily. Medical ULTRA) 29 Branch mg iron- 1 mg-200 mg Cap PNV 67-iron 2018- Yes [id number] 1{each} Take 1 Univers ps-folate 4-05 Each by ity of no.1-dha 00:00: mouth [place] (VITAFOL 00 daily. Medical ULTRA) 29 Branch mg iron- 1 mg-200 mg Cap PNV 67-iron Yes [id number] 1{each} Take 1 Univers ps-folate 4-05 Each by ity of no.1-dha 00:00: mouth [place] (VITAFOL 00 daily. Medical ULTRA) 29 Branch mg iron- 1 mg-200 mg Cap PNV 67-iron 2018- Yes [id number] 1{each} Take 1 Univers ps-folate 4-05 Each by ity of no.1-dha 00:00: mouth [place] (VITAFOL 00 daily. Medical ULTRA) 29 Branch mg iron- 1 mg-200 mg Cap PNV 67-iron 2018- Yes [id number] 1{each} Take 1 Univers ps-folate 4-05 Each by ity of no.1-dha 00:00: mouth [place] (VITAFOL 00 daily. Medical ULTRA) 29 Branch mg iron- 1 mg-200 mg Cap PNV 67-iron 2019- Yes [id number] 1{each} Take 1 Univers ps-folate 4-05 Each by ity of no.1-dha 00:00: mouth [place] (VITAFOL 00 daily. Medical ULTRA) 29 Branch mg iron- 1 mg-200 mg Cap PNV 67-iron 2019- Yes [id number] 1{each} Take 1 Univers ps-folate 4-05 Each by ity of no.1-dha 00:00: mouth [place] (VITAFOL 00 daily. Medical ULTRA) 29 Branch mg iron- 1 mg-200 mg Cap PNV 67-iron 2019-0 Yes [id number] 1{each} Take 1 Univers ps-folate 4-05 Each by ity of no.1-dha 00:00: mouth [place] (VITAFOL 00 daily. Medical ULTRA) 29 Branch mg iron- 1 mg-200 mg Cap PNV 67-iron 2019-0 Yes [id number] 1{each} Take 1 Univers ps-folate 4-05 Each by ity of no.1-dha 00:00: mouth [place] (VITAFOL 00 daily. Medical ULTRA) 29 Branch mg iron- 1 mg-200 mg Cap PNV 67-iron 2019-0 Yes [id number] 1{each} Take 1 Univers ps-folate 4-05 Each by ity of no.1-dha 00:00: mouth [place] (VITAFOL 00 daily. Medical ULTRA) 29 Branch mg iron- 1 mg-200 mg Cap PNV 67-iron 2019-0 Yes [id number] 1{each} Take 1 Univers ps-folate 4-05 Each by ity of no.1-dha 00:00: mouth [place] (VITAFOL 00 daily. Medical ULTRA) 29 Branch mg iron- 1 mg-200 mg Cap PNV 67-iron 2019-0 Yes [id number] 1{each} Take 1 Univers ps-folate 4-05 Each by ity of no.1-dha 00:00: mouth [place] (VITAFOL 00 daily. Medical ULTRA) 29 Branch mg iron- 1 mg-200 mg Cap PNV 67-iron 2019-0 Yes [id number] 1{each} Take 1 Univers ps-folate 4-05 Each by ity of no.1-dha 00:00: mouth [place] (VITAFOL 00 daily. Medical ULTRA) 29 Branch mg iron- 1 mg-200 mg Cap PNV 67-iron 2019-0 Yes [id number] 1{each} Take 1 Univers ps-folate 4-05 Each by ity of no.1-dha 00:00: mouth [place] (VITAFOL 00 daily. Medical ULTRA) 29 Branch mg iron- 1 mg-200 mg Cap PNV 67-iron 2019-0 Yes [id number] 1{each} Take 1 Univers ps-folate 4-05 Each by ity of no.1-dha 00:00: mouth [place] (VITAFOL 00 daily. Medical ULTRA) 29 Branch mg iron- 1 mg-200 mg Cap PNV 67-iron 2019-0 Yes [id number] 1{each} Take 1 Univers ps-folate 4-05 Each by ity of no.1-dha 00:00: mouth [place] (VITAFOL 00 daily. Medical ULTRA) 29 Branch mg iron- 1 mg-200 mg Cap PNV 67-iron 2019-0 Yes [id number] 1{each} Take 1 Univers ps-folate 4-05 Each by ity of no.1-dha 00:00: mouth [place] (VITAFOL 00 daily. Medical ULTRA) 29 Branch mg iron- 1 mg-200 mg Cap PNV 67-iron 2019-0 Yes [id number] 1{each} Take 1 Univers ps-folate 4-05 Each by ity of no.1-dha 00:00: mouth [place] (VITAFOL 00 daily. Medical ULTRA) 29 Branch mg iron- 1 mg-200 mg Cap PNV 67-iron 2019-0 Yes [id number] 1{each} Take 1 Univers ps-folate 4-05 Each by ity of no.1-dha 00:00: mouth [place] (VITAFOL 00 daily. Medical ULTRA) 29 Branch mg iron- 1 mg-200 mg Cap PNV 67-iron 2019-0 Yes [id number] 1{each} Take 1 Univers ps-folate 4-05 Each by ity of no.1-dha 00:00: mouth [place] (VITAFOL 00 daily. Medical ULTRA) 29 Branch mg iron- 1 mg-200 mg Cap PNV 67-iron 2019-0 Yes [id number] 1{each} Take 1 Univers ps-folate 4-05 Each by ity of no.1-dha 00:00: mouth [place] (VITAFOL 00 daily. Medical ULTRA) 29 Branch mg iron- 1 mg-200 mg Cap PNV 67-iron 2019-0 Yes [id number] 1{each} Take 1 Univers ps-folate 4-05 Each by ity of no.1-dha 00:00: mouth [place] (VITAFOL 00 daily. Medical ULTRA) 29 Branch mg iron- 1 mg-200 mg Cap PNV 67-iron 2019-0 Yes [id number] 1{each} Take 1 Univers ps-folate 4-05 Each by ity of no.1-dha 00:00: mouth [place] (VITAFOL 00 daily. Medical ULTRA) 29 Branch mg iron- 1 mg-200 mg Cap PNV 67-iron 2019-0 Yes [id number] 1{each} Take 1 Univers ps-folate 4-05 Each by ity of no.1-dha 00:00: mouth [place] (VITAFOL 00 daily. Medical ULTRA) 29 Branch mg iron- 1 mg-200 mg Cap PNV 67-iron 2019-0 Yes [id number] 1{each} Take 1 Univers ps-folate 4-05 Each by ity of no.1-dha 00:00: mouth [place] (VITAFOL 00 daily. Medical ULTRA) 29 Branch mg iron- 1 mg-200 mg Cap PNV 67-iron 2019-0 Yes [id number] 1{each} Take 1 Univers ps-folate 4-05 Each by ity of no.1-dha 00:00: mouth [place] (VITAFOL 00 daily. Medical ULTRA) 29 Branch mg iron- 1 mg-200 mg Cap PNV 67-iron 2019-0 Yes [id number] 1{each} Take 1 Univers ps-folate 4-05 Each by ity of no.1-dha 00:00: mouth [place] (VITAFOL 00 daily. Medical ULTRA) 29 Branch mg iron- 1 mg-200 mg Cap PNV 67-iron 2019- Yes [id number] 1{each} Take 1 Univers ps-folate 4-05 Each by ity of no.1-dha 00:00: mouth [place] (VITAFOL 00 daily. Medical ULTRA) 29 Branch mg iron- 1 mg-200 mg Cap PNV 67-iron 2019-0 Yes [id number] 1{each} Take 1 Univers ps-folate 4-05 Each by ity of no.1-dha 00:00: mouth [place] (VITAFOL 00 daily. Medical ULTRA) 29 Branch mg iron- 1 mg-200 mg Cap PNV 67-iron 2019- Yes [id number] 1{each} Take 1 Univers ps-folate 4-05 Each by ity of no.1-dha 00:00: mouth [place] (VITAFOL 00 daily. Medical ULTRA) 29 Branch mg iron- 1 mg-200 mg Cap PNV 67-iron 2019-0 Yes [id number] 1{each} Take 1 Univers ps-folate 4-05 Each by ity of no.1-dha 00:00: mouth [place] (VITAFOL 00 daily. Medical ULTRA) 29 Branch mg iron- 1 mg-200 mg Cap PNV 67-iron 2019-0 Yes [id number] 1{each} Take 1 Univers ps-folate 4-05 Each by ity of no.1-dha 00:00: mouth [place] (VITAFOL 00 daily. Medical ULTRA) 29 Branch mg iron- 1 mg-200 mg Cap PNV 67-iron 2019-0 Yes [id number] 1{each} Take 1 Univers ps-folate 4-05 Each by ity of no.1-dha 00:00: mouth [place] (VITAFOL 00 daily. Medical ULTRA) 29 Branch mg iron- 1 mg-200 mg Cap PNV 67-iron 2019-0 Yes [id number] 1{each} Take 1 Univers ps-folate 4-05 Each by ity of no.1-dha 00:00: mouth [place] (VITAFOL 00 daily. Medical ULTRA) 29 Branch mg iron- 1 mg-200 mg Cap PNV 67-iron 20190 Yes [id number] 1{each} Take 1 Univers ps-folate 4-05 Each by ity of no.1-dha 00:00: mouth [place] (VITAFOL 00 daily. Medical ULTRA) 29 Branch mg iron- 1 mg-200 mg Cap PNV 67-iron 0 Yes [id number] 1{each} Take 1 Univers ps-folate 4-05 Each by ity of no.1-dha 00:00: mouth [place] (VITAFOL 00 daily. Medical ULTRA) 29 Branch mg iron- 1 mg-200 mg Cap PNV 67-iron 2018-0 Yes [id number] 1{each} Take 1 Univers ps-folate 4-05 Each by ity of no.1-dha 00:00: mouth [place] (VITAFOL 00 daily. Medical ULTRA) 29 Branch mg iron- 1 mg-200 mg Cap PNV 67-iron 2018-0 Yes [id number] 1{each} Take 1 Univers ps-folate 4-05 Each by ity of no.1-dha 00:00: mouth [place] (VITAFOL 00 daily. Medical ULTRA) 29 Branch mg iron- 1 mg-200 mg Cap PNV 67-iron 2019-0 2021- No [id number] 1{each} Take 1 Univers ps-folate 4-05 05-12 Each by ity of no.1-dha 00:00: 00:00 mouth [place] (VITAFOL 00 :00 daily. Medical ULTRA) 29 Branch mg iron- 1 mg-200 mg Cap Immunizations Ordered Filled Immunization Date Status Comments [facility] e Immunization Name Name TDAP (ADACEL) 2018-10-15 Completed University of VACCINE 00:00:00 [facility] Branch TDAP (ADACEL) 2018-10-15 Completed University of VACCINE 00:00:00 [facility] TDAP (ADACEL) 2018-10-15 Completed University of VACCINE 00:00:00 [facility] TDAP (ADACEL) 2018-10-15 Completed University of VACCINE 00:00:00 [facility] TDAP (ADACEL) 2018-10-15 Completed University of VACCINE 00:00:00 [facility] Branch TDAP (ADACEL) 2018-10-15 Completed University of VACCINE 00:00:00 [facility] Branch TDAP (ADACEL) 2018-10-15 Completed University of VACCINE 00:00:00 [facility] Branch TDAP (ADACEL) 2018-10-15 Completed University of VACCINE 00:00:00 [facility] Branch TDAP (ADACEL) 2018-10-15 Completed University of VACCINE 00:00:00 [facility] TDAP (ADACEL) 2018-10-15 Completed University of VACCINE 00:00:00 [facility] TDAP (ADACEL) 2018-10-15 Completed University of VACCINE 00:00:00 [facility] TDAP (ADACEL) 2018-10-15 Completed University of VACCINE 00:00:00 [facility] TDAP (ADACEL) 2018-10-15 Completed University of VACCINE 00:00:00 [facility] TDAP (ADACEL) 2018-10-15 Completed University of VACCINE 00:00:00 [facility] TDAP (ADACEL) 2018-10-15 Completed University of VACCINE 00:00:00 [facility] Branch TDAP (ADACEL) 2018-10-15 Completed University of VACCINE 00:00:00 [facility] TDAP (ADACEL) 2018-10-15 Completed University of VACCINE 00:00:00 [facility] Branch TDAP (ADACEL) 2018-10-15 Completed University of VACCINE 00:00:00 [facility] TDAP (ADACEL) 2018-10-15 Completed University of VACCINE 00:00:00 [facility] TDAP (ADACEL) 2018-10-15 Completed University of VACCINE 00:00:00 [facility] TDAP (ADACEL) 2018-10-15 Completed University of VACCINE 00:00:00 [facility] TDAP (ADACEL) 2018-10-15 Completed University of VACCINE 00:00:00 [facility] TDAP (ADACEL) 2018-10-15 Completed University of VACCINE 00:00:00 [facility] TDAP (ADACEL) 2018-10-15 Completed University of VACCINE 00:00:00 [facility] TDAP (ADACEL) 2018-10-15 Completed University of VACCINE 00:00:00 [facility] TDAP (ADACEL) 2018-10-15 Completed University of VACCINE 00:00:00 [facility] TDAP (ADACEL) 2018-10-15 Completed University of VACCINE 00:00:00 [facility] TDAP (ADACEL) 2018-10-15 Completed University of VACCINE 00:00:00 [facility] TDAP (ADACEL) 2018-10-15 Completed University of VACCINE 00:00:00 [facility] Branch TDAP (ADACEL) 2018-10-15 Completed University of VACCINE 00:00:00 [facility] TDAP (ADACEL) 2018-10-15 Completed University of VACCINE 00:00:00 [facility] TDAP (ADACEL) 2018-10-15 Completed University of VACCINE 00:00:00 [facility] TDAP (ADACEL) 2018-10-15 Completed University of VACCINE 00:00:00 [facility] TDAP (ADACEL) 2018-10-15 Completed University of VACCINE 00:00:00 [facility] TDAP (ADACEL) 2018-10-15 Completed University of VACCINE 00:00:00 [facility] TDAP (ADACEL) 2018-10-15 Completed University of VACCINE 00:00:00 [facility] TDAP (ADACEL) 2018-10-15 Completed University of VACCINE 00:00:00 [facility] TDAP (ADACEL) 2018-10-15 Completed University of VACCINE 00:00:00 [facility] TDAP (ADACEL) 2018-10-15 Completed University of VACCINE 00:00:00 [facility] TDAP (ADACEL) 2018-10-15 Completed University of VACCINE 00:00:00 [facility] TDAP (ADACEL) 2018-10-15 Completed University of VACCINE 00:00:00 [facility] Vital Signs Vital Name Observation Time Observation Value Comments Source Systolic blood 2021-08-26 19:45:00 122 mm[Hg] Univer sity of pressure [facility] Diastolic blood 2021-08-26 19:45:00 68 mm[Hg] Unive rsity of pressure [place] [facility] Heart rate 2021-08-26 19:45:00 80 /min [facility] [place] [facility] Body temperature 2021-08-26 19:45:00 36.78 Radha Univ ersity of [place] [facility] Respiratory rate 2021-08-26 19:45:00 18 /min Univ ersity of [place] [facility] Oxygen saturation in 2021-08-26 19:45:00 95 /min University of Arterial blood by [place] [facility] [employer] [facility] Pulse oximetry Branch Body height 2021-08-24 11:01:00 167.6 cm [facility] [place] [facility] Body weight 2021-08-24 11:01:00 81.647 kg [facility]i [facility] of [place] [facility] BMI 2021-08-24 11:01:00 29.05 kg/m2 [facility] [place] [facility] Systolic blood 2019-01-01 14:00:00 124 mm[Hg] Univer sity of pressure [place] [facility] Diastolic blood 2019-01-01 14:00:00 85 mm[Hg] Unive rsity of pressure [place] [facility] Heart rate 2019-01-01 14:00:00 60 /min [facility] [place] [facility] Respiratory rate 2019-01-01 14:00:00 18 /min Univ ersity [facility] [place] [facility] Oxygen saturation in 2019-01-01 14:00:00 98 /min University of Arterial blood by [place] [facility] [employer] frank Pulse oximetry Branch Body temperature 2019-01-01 13:15:00 36.78 Radha [facility] [place] [facility] Body weight 2019-01-01 03:07:00 101.651 kg [facility] [place] [facility] BMI 2019-01-01 03:07:00 36.17 kg/m2 [facility] [place] [facility] Systolic blood 2019-01-01 14:00:00 124 [...] 98 /min University of Arterial blood by [place] [facility] [employer] frank Pulse oximetry Branch Body temperature 2019-01-01 13:15:00 36.78 Radha [facility] [place] [facility] Body weight 2019-01-01 03:07:00 101.651 kg [facility] [place] [facility] BMI 2019-01-01 03:07:00 36.17 kg/m2 [facility] [place] [facility] Systolic blood 2018-12-31 20:26:00 162 mm[Hg] Univer sity of pressure [place] [facility] Diastolic blood 2018-12-31 20:26:00 90 mm[Hg] Unive rsity of pressure [place] [facility] Heart rate 2018-12-31 20:21:00 67 /min [facility] [place] [facility] Body temperature 2018-12-31 20:21:00 37.06 Radha [facility] [place] [facility] Respiratory rate 2018-12-31 20:21:00 16 /min Univ ers[facility] of [place] [facility] Body height 2018-12-31 20:21:00 167.6 cm [facility] [place] [facility] Body weight 2018-12-31 20:21:00 102.116 kg [facility] [place] [facility] BMI 2018-12-31 20:21:00 36.34 kg/m2 [facility] [place] [facility] Systolic blood 2018-12-31 20:26:00 162 mm[Hg] Univer sity of pressure [place] [facility] Diastolic blood 2018-12-31 20:26:00 90 mm[Hg] Unive rsity of pressure [place] [facility] Heart rate 2018-12-31 20:21:00 67 /min [facility] [place] [facility] Body temperature 2018-12-31 20:21:00 37.06 Radha [facility] [place] [facility] Respiratory rate 2018-12-31 20:21:00 16 /min [facility] [place] [facility] Body height 2018-12-31 20:21:00 167.6 cm [facility] [place] [facility] Body weight 2018-12-31 20:21:00 102.116 kg [facility] [place] [facility] BMI 2018-12-31 20:21:00 36.34 kg/m2 [facility] [place] [facility] Systolic blood 2018-12-29 05:30:00 133 mm[Hg] Univer sity of pressure [place] [facility] Diastolic blood 2018-12-29 05:30:00 77 mm[Hg] Unive rsity of pressure [place] [facility] Heart rate 2018-12-29 05:30:00 52 /min [facility] [place] [facility] Respiratory rate 2018-12-29 05:30:00 15 /min [facility] [place] [facility] Oxygen saturation in 2018-12-29 05:30:00 98 /min University of Arterial blood by [facility] Pulse oximetry Branch Body temperature 2018-12-29 00:43:00 37.17 Radha [facility] [place] [facility] Body height 2018-12-29 00:43:00 167.6 cm [facility] [place] [facility] Body weight 2018-12-29 00:43:00 108.863 kg [facility] [place] [facility] BMI 2018-12-29 00:43:00 38.74 kg/m2 [facility] [place] [facility] Systolic blood 2018-12-29 05:30:00 133 mm[Hg] Univer sity of pressure [place] [facility] Diastolic blood 2018-12-29 05:30:00 77 mm[Hg] Unive rsity of pressure [place] [facility] Heart rate 2018-12-29 05:30:00 52 /min [facility] [place] [facility] Respiratory rate 2018-12-29 05:30:00 15 /min [facility] ers[facility] [place] [facility] Oxygen saturation in 2018-12-29 05:30:00 98 /min [facility] [facility] Body temperature 2018-12-29 00:43:00 37.17 Radha [facility] Body height 2018-12-29 00:43:00 167.6 cm [facility] Body weight 2018-12-29 00:43:00 108.863 kg [facility] BMI 2018-12-29 00:43:00 38.74 kg/m2 [facility] Systolic blood 2018-12-28 18:47:00 172 mm[Hg] [facility] Diastolic blood 2018-12-28 18:47:00 90 mm[Hg] [facility] Heart rate 2018-12-28 18:47:00 52 /min [facility] Body temperature 2018-12-28 18:32:00 36.89 Radha [facility] Respiratory rate 2018-12-28 18:32:00 16 /min [facility] Body height 2018-12-28 18:32:00 165.1 cm [facility] Body weight 2018-12-28 18:32:00 109.118 kg [facility] BMI 2018-12-28 18:32:00 40.03 kg/m2 [facility] Systolic blood 2018-12-28 18:47:00 172 mm[Hg] [facility] Diastolic blood 2018-12-28 18:47:00 90 mm[Hg] [facility] Heart rate 2018-12-28 18:47:00 52 /min [facility] Body temperature 2018-12-28 18:32:00 36.89 Radha [facility] Respiratory rate 2018-12-28 18:32:00 16 /min [facility] Body height 2018-12-28 18:32:00 165.1 cm [facility] Body weight 2018-12-28 18:32:00 109.118 kg [facility] BMI 2018-12-28 18:32:00 40.03 kg/m2 [facility] Body temperature 2018-12-24 13:00:00 36.61 Radha [facility] Systolic blood 2018-12-24 09:00:00 119 mm[Hg] [facility] Diastolic blood 2018-12-24 09:00:00 79 mm[Hg] [facility] Heart rate 2018-12-24 09:00:00 69 /min [facility] Respiratory rate 2018-12-24 09:00:00 18 /min [facility] Oxygen saturation in 2018-12-24 09:00:00 99 /min [facility] Arter[facility] blood by [facility] Pulse oximetry [facility] Body height 2018-12-21 15:30:00 165.1 cm [facility] Body weight 2018-12-21 15:30:00 108.636 kg [facility] BMI 2018-12-21 15:30:00 39.85 kg/m2 [facility] Body temperature 2018-12-24 13:00:00 36.61 Radha [facility] Systolic blood 2018-12-24 09:00:00 119 mm[Hg] [facility] Diastolic blood 2018-12-24 09:00:00 79 mm[Hg] [facility] Heart rate 2018-12-24 09:00:00 69 /min [facility] Respiratory rate 2018-12-24 09:00:00 18 /min [facility] Oxygen saturation in 2018-12-24 09:00:00 99 /min [facility] Arter[facility] blood by [facility] P[facility] Body height 2018-12-21 15:30:00 165.1 cm [facility] Body weight 2018-12-21 15:30:00 108.636 kg [facility] BMI 2018-12-21 15:30:00 39.85 kg/m2 [facility] Systolic blood 2018-12-20 15:34:00 113 mm[Hg] [facility] Diastolic blood 2018-12-20 15:34:00 72 mm[Hg] [facility] Heart rate 2018-12-20 15:34:00 90 /min [facility] Body temperature 2018-12-20 15:34:00 36.78 Radha [facility] Respiratory rate 2018-12-20 15:34:00 16 /min [facility] Body weight 2018-12-20 15:34:00 108.636 kg [facility] BMI 2018-12-20 15:34:00 39.85 kg/m2 [facility] Systolic blood 2018-12-20 15:34:00 113 mm[Hg] [facility] Diastolic blood 2018-12-20 15:34:00 72 mm[Hg] [facility] Heart rate 2018-12-20 15:34:00 90 /min [facility] Body temperature 2018-12-20 15:34:00 36.78 Radha [facility] Respiratory rate 2018-12-20 15:34:00 16 /min [facility] Body weight 2018-12-20 15:34:00 108.636 kg [facility] BMI 2018-12-20 15:34:00 39.85 kg/m2 [facility] Systolic blood 2018-12-18 17:58:00 119 mm[Hg] [facility] Diastolic blood 2018-12-18 17:58:00 70 mm[Hg] [facility] Heart rate 2018-12-18 17:58:00 80 /min [facility] Body temperature 2018-12-18 17:58:00 36.78 Radha [facility] Respiratory rate 2018-12-18 17:58:00 16 /min [facility] Body height 2018-12-18 17:58:00 165.1 cm [facility] Body weight 2018-12-18 17:58:00 109.43 kg [facility] BMI 2018-12-18 17:58:00 40.15 kg/m2 [facility] Systolic blood 2018-12-18 17:58:00 119 mm[Hg] [facility] Diastolic blood 2018-12-18 17:58:00 70 mm[Hg] [facility] Heart rate 2018-12-18 17:58:00 80 /min [facility] Body temperature 2018-12-18 17:58:00 36.78 Radha [facility] Respiratory rate 2018-12-18 17:58:00 16 /min [facility] Body height 2018-12-18 17:58:00 165.1 cm [facility] Body weight 2018-12-18 17:58:00 109.43 kg [facility] BMI 2018-12-18 17:58:00 40.15 kg/m2 [facility] Systolic blood 2018-12-13 18:42:00 110 mm[Hg] [facility] Diastolic blood 2018-12-13 18:42:00 56 mm[Hg] [facility] Heart rate 2018-12-13 18:42:00 74 /min [facility] Body temperature 2018-12-13 18:42:00 36.72 Radha [facility] Respiratory rate 2018-12-13 18:42:00 18 /min [facility] Body height 2018-12-13 18:42:00 165.1 cm [facility] Body weight 2018-12-13 18:42:00 109.544 kg [facility] BMI 2018-12-13 18:42:00 40.19 kg/m2 [facility] Systolic blood 2018-12-13 18:42:00 110 mm[Hg] [facility] Diastolic blood 2018-12-13 18:42:00 56 mm[Hg] [facility] Heart rate 2018-12-13 18:42:00 74 /min [facility] Body temperature 2018-12-13 18:42:00 36.72 Radha [facility] Respiratory rate 2018-12-13 18:42:00 18 /min [facility] Body height 2018-12-13 18:42:00 165.1 cm [facility] Body weight 2018-12-13 18:42:00 109.544 kg [facility] BMI 2018-12-13 18:42:00 40.19 kg/m2 [facility] Systolic blood 2018-12-10 15:42:00 98 mm[Hg] [facility] Diastolic blood 2018-12-10 15:42:00 66 mm[Hg] [facility] Heart rate 2018-12-10 15:42:00 71 /min [facility] Body temperature 2018-12-10 15:42:00 37.06 Radha [facility] Respiratory rate 2018-12-10 15:42:00 16 /min [facility] Body height 2018-12-10 15:42:00 165.1 [...] 2018-12-10 15:42:00 16 /min [facility] Body height 2018-12-10 15:42:00 165.1 cm [facility] Body weight 2018-12-10 15:42:00 109.77 kg [facility] BMI 2018-12-10 15:42:00 40.27 kg/m2 [facility] Systolic blood 2018-12-06 15:34:00 122 mm[Hg] [facility] Diastolic blood 2018-12-06 15:34:00 64 mm[Hg] [facility] Heart rate 2018-12-06 15:34:00 95 /min [facility] Body temperature 2018-12-06 15:34:00 36.89 Radha [facility] Respiratory rate 2018-12-06 15:34:00 16 /min [facility] Body height 2018-12-06 15:34:00 165.1 cm [facility] Body weight 2018-12-06 15:34:00 111.33 kg [facility] BMI 2018-12-06 15:34:00 40.84 kg/m2 [facility] Systolic blood 2018-12-06 15:34:00 122 mm[Hg] [facility] Diastolic blood 2018-12-06 15:34:00 64 mm[Hg] [facility] Heart rate 2018-12-06 15:34:00 95 /min [facility] Body temperature 2018-12-06 15:34:00 36.89 Radha [facility] Respiratory rate 2018-12-06 15:34:00 16 /min [facility] Body height 2018-12-06 15:34:00 165.1 cm [facility] Body weight 2018-12-06 15:34:00 111.33 kg [facility] BMI 2018-12-06 15:34:00 40.84 kg/m2 [facility] Heart rate 2018-12-03 21:30:00 77 /min [facility] Oxygen saturation in 2018-12-03 21:30:00 99 /min [facility] Arterial blood by [facility] Pulse oxim[facility] Systolic blood 2018-12-03 19:12:00 139 mm[Hg] [facility] Diastolic blood 2018-12-03 19:12:00 74 mm[Hg] [facility] Body temperature 2018-12-03 19:12:00 36.83 Radha [facility] Respiratory rate 2018-12-03 19:12:00 18 /min [facility] Body height 2018-12-03 19:12:00 167.6 cm [facility] Body weight 2018-12-03 19:12:00 111.494 kg [facility] BMI 2018-12-03 19:12:00 39.69 kg/m2 [facility] Heart rate 2018-12-03 21:30:00 77 /min [facility] Oxygen saturation in 2018-12-03 21:30:00 99 /min [facility] Arterial blood by [facility] P[facility] o[facility] Systolic blood 2018-12-03 19:12:00 139 mm[Hg] [facility] Diastolic blood 2018-12-03 19:12:00 74 mm[Hg] [facility] Body temperature 2018-12-03 19:12:00 36.83 Radha [facility] Respiratory rate 2018-12-03 19:12:00 18 /min [facility] Body height 2018-12-03 19:12:00 167.6 cm [facility] Body weight 2018-12-03 19:12:00 111.494 kg [facility] BMI 2018-12-03 19:12:00 39.69 kg/m2 [facility] Systolic blood 2018-12-03 15:02:00 113 [...] 2018-11-29 17:58:00 16 /min [facility] Body height 2018-11-29 17:58:00 167.6 [...] 2018-11-29 17:58:00 37.06 Radha [facility] Respiratory rate 2018-11-29 17:58:00 16 /min [facility] Body height 2018-11-29 17:58:00 167.6 cm [facility] Body weight 2018-11-29 17:58:00 111.273 kg [facility] BMI 2018-11-29 17:58:00 39.59 kg/m2 [facility] Systolic blood 2018-11-26 15:17:00 116 mm[Hg] [facility] Diastolic blood 2018-11-26 15:17:00 76 mm[Hg] [facility] Heart rate 2018-11-26 15:17:00 84 /min [facility] Body temperature 2018-11-26 15:17:00 37 Radha [facility] Respiratory rate 2018-11-26 15:17:00 16 /min [facility] Body height 2018-11-26 15:17:00 167.6 cm [facility] Body weight 2018-11-26 15:17:00 109.827 kg [facility] BMI 2018-11-26 15:17:00 39.08 kg/m2 [facility] Systolic blood 2018-11-22 13:11:00 108 mm[Hg] [facility] Diastolic blood 2018-11-22 13:11:00 62 mm[Hg] [facility] Heart rate 2018-11-22 13:11:00 66 /min [facility] Body temperature 2018-11-22 13:11:00 36.72 Radha [facility] Respiratory rate 2018-11-22 13:11:00 16 /min [facility] Body height 2018-11-22 13:11:00 167.6 cm [facility] Body weight 2018-11-22 13:11:00 111.131 kg [facility] BMI 2018-11-22 13:11:00 39.54 kg/m2 [facility] Heart rate 2018-11-19 20:45:00 72 /min [facility] Oxygen saturation in 2018-11-19 20:15:00 100 /min [facility] Arterial blood by [facility] P[facility] o[facility] Systolic blood 2018-11-19 17:41:00 135 mm[Hg] [facility] Diastolic blood 2018-11-19 17:41:00 65 mm[Hg] [facility] Body temperature 2018-11-19 17:41:00 36.83 Radha [facility] Respiratory rate 2018-11-19 17:41:00 16 /min [facility] Body height 2018-11-19 17:41:00 167.6 cm [facility] Body weight 2018-11-19 17:41:00 109.77 kg [facility] BMI 2018-11-19 17:41:00 39.06 kg/m2 [facility] Systolic blood 2018-11-19 14:28:00 118 mm[Hg] [facility] Diastolic blood 2018-11-19 14:28:00 64 mm[Hg] [facility] Heart rate 2018-11-19 14:28:00 62 /min [facility] Body temperature 2018-11-19 14:28:00 36.89 Radha [facility] Respiratory rate 2018-11-19 14:28:00 16 /min [facility] Body height 2018-11-19 14:28:00 167.6 cm [facility] Body weight 2018-11-19 14:28:00 109.941 kg [facility] BMI 2018-11-19 14:28:00 39.12 kg/m2 [facility] Systolic blood 2018-11-15 19:28:00 123 mm[Hg] [facility] Diastolic blood 2018-11-15 19:28:00 68 mm[Hg] [facility] Heart rate 2018-11-15 19:28:00 73 /min [facility] Body temperature 2018-11-15 19:28:00 36.89 Radha [facility] Respiratory rate 2018-11-15 19:28:00 16 /min [facility] Body height 2018-11-15 19:28:00 167.6 cm [facility] Body weight 2018-11-15 19:28:00 110.309 kg [facility] BMI 2018-11-15 19:28:00 39.25 kg/m2 [facility] Systolic blood 2018-11-12 15:53:00 102 mm[Hg] [facility] Diastolic blood 2018-11-12 15:53:00 64 mm[Hg] [facility] Heart rate 2018-11-12 15:53:00 65 /min [facility] Body temperature 2018-11-12 15:53:00 37.39 Radha [facility] Respiratory rate 2018-11-12 15:53:00 16 /min [facility] Body height 2018-11-12 15:53:00 167.6 cm [facility] Body weight 2018-11-12 15:53:00 109.941 kg [facility] BMI 2018-11-12 15:53:00 39.12 kg/m2 [facility] Procedures Procedure Date / Time Performing Clinician Source Performed EXTERNAL PROVIDER RECORDS 2021-09-04 05:01:00 Doctor Unassigned, [facility] CBC WITH DIFF 2021-08-26 11:59:00 Gianfranco Tyler [facility] PAP SMEAR-LIQUID BASED-CP 2021-08-25 23:14:00 Prashanth Tyler [facility] US PELVIS COMPLETE WITH 2021-08-25 21:23:27 Gianfranco [facility]FF 2021-08-25 11:26:00 Cathie [facility] PREPARE PACKED RBC 2021-08-25 05:04:47 Cathie [facility] TRANSFUSE PACKED RBC 2021-08-25 03:15:00 Cathie [facility] PREPARE PACKED RBC 2021-08-25 03:06:35 Shari Perry [facility] HEPATITIS C VIRUS (HCV) BY 2021-08-24 22:55:00 Lyssa Hernandez [facility] QUANTITATIVE NAAT [facility] FERRITIN SERUM 2021-08-24 22:54:00 Mary [facility] IRON 2021-08-24 22:54:00 Mary [facility] TRANSFERRIN 2021-08-24 22:54:00 Gianfranco Tyler [facility] TOTAL IRON BINDING CAPACITY 2021-08-24 22:54:00 Deedee Tyler [facility] COMP. METABOLIC PANEL 2021-08-24 22:54:00 Linnette [facility] ([id number]) [facility] HCV ANTIBODY 2021-08-24 22:54:00 Lyssa Hernandez [facility] HB DIRECT ANTIGLOBULIN 2021-08-24 20:36:31 Shari Perry [facility] (POLY SPEC [facility] URINALYSIS 2021-08-24 19:03:00 [place] [facility] TRANSFUSE PACKED RBC 2021-08-24 15:20:00 Shari Perry [facility] EKG-12 LEAD 2021-08-24 15:11:07 Florencio Lr [facility] HB ABO GROUPING 2021-08-24 09:02:00 [place] [facility] CBC WITH DIFF 2021-08-24 08:59[facility] LOWER EXTREMITY VEIN 2019-01-01 07:50:21 Kortney [facility] WITH COMPRESSION BILATERAL Liss Rausch [facility] (ONLY FOR RULE OUT DVT) [facility] URINALYSIS 2019-01-01 04:17:00 Josué [facility] PROTEIN CREAT RATIO URINE 2019-01-01 04:17:00 Alo Moses [facility] SGOT (ASPARTATE AMINO 2019-01-01 04:16:00 Alo Moses [facility] TRANSFER) Medical Branch CREATININE 2019-01-01 04:16:00 Josué [facility] ALANINE AMINO 2019-01-01 04:16[facility]00 [facility] LACTATE DEHYDROGENASE 2019-01-01 04:16:00 Josué [facility] URIC ACID 2019-01-01 04:16:00 Josué [facility] CBC WITH DIFFERENTIAL 2019-01-01 04:16:00 [facility] POCT URINALYSIS 2018-12-31 20:24:00 Max Velarde [facility] URINALYSIS 2018-12-29 01:39:00 Alla Alford [facility] LIPASE 2018-12-29 01:37:00 Alla Alford [facility] MAGNESIUM 2018-12-29 01:37:00 Alla Alford [facility] COMP. METABOLIC PANEL 2018-12-29 01:37:00 Alla Alford [facility] ([id number]) [facility] CBC WITH DIFFERENTIAL 2018-12-29 01:37:00 Alla Alford [facility] PROTHROMBIN TIME / INR 2018-12-29 01:37:[address] [facility] N-TERMINAL PRO-BNP 2018-12-29 01:37:00 Alla Alford [facility] NOTICE OF PRIVACY PRACTICES 2018-12-29 00:16:20 Doctor Jessica willis, [facility] CONSENT/REFUSAL FOR 2018-12-29 00:16:07 Doctor Unassigned, [facility] DIAGNOSIS AND TREATMENT [facility] POCT URINALYSIS 2018-12-28 18:48:00 Max Velarde [facility] CBC WITH DIFFERENTIAL 2018-12-24 09:13:00 Gilson Upton [facility] CBC WITH DIFFERENTIAL 2018-12-22 15:41:00 Bob La [facility] LAB ON A CART 2018-12-21 20:22:00 Elizabeth Mccray [facility] THROMBELASTOGRAPH CITRATED [facility] KAOLIN W/HEPARIN CBC WITH DIFFERENTIAL 2018-12-21 16:10:00 Maicol Ramírez [facility] VENOUS CORD GAS 2018-12-21 16:07:00 Dl [facility] TRANSFUSE PLATELETS 2018-12-21 15:07:[address] [facility] TRANSFUSE PLATELETS 2018-12-21 15:04:[address] [facility] SECTION 2018-12-21 14:43:00 Jesse Woods [facility] PREPARE PLATELETS 2018-12-21 13:34:52 Selin kvng [facility] PREPARE PLATELETS 2018-12-21 13:34:51 Luca Smallwood [facility] LAB ON A CART 2018-12-21 13:18:00 Marcela Lujan [facility] THROMBELASTOGRAPH CITRATED [facility] KAOLIN CBC WITH DIFFERENTIAL 2018-12-21 03:45:00 Alison Zamorano [facility] TYPE AND SCREEN 2018-12-21 03:24:00 Antonio Sharma [facility] RHO (D) IMMUNE GLOBULIN 2018-12-21 03:24:00 Gilson Upton [facility] HEPATITIS B SURFACE ANTIGEN 2018-12-21 03:16:00 Alicia Sharma [facility] GALV ONLY - SYPHILIS 2018-12-21 03:16:00 Antonio Sharma [facility] IGG/IGM [facility] NON-STRESS TEST 2018-12-20 16:12:[address] [facility] POCT URINALYSIS 2018-12-20 15:39:00 Max Velarde [facility] NON-STRESS TEST 2018-12-18 19:31:53 Max Velarde [facility] POCT URINALYSIS 2018-12-18 18:02:00 Max Velarde [facility] NON-STRESS TEST 2018-12-13 19:28:18 [facility] OR MISSED 2018-12-13 18:26:00 Doctor Unapito, [facility] APPOINTMENT POLICY [facility] h ACKNOWLEDGEMENT SECOND AND THIRD TRIMESTER 2018-12-13 18:14:00 Mila Ferguson [facility] ULTRASOUND [facility] NON-STRESS TEST 2018-12-10 16:53:[address] [facility] POCT URINALYSIS 2018-12-10 15:44:00 Allie Miller [facility] NON-STRESS TEST 2018-12-06 21:10:[address] [facility] CBC WITH DIFFERENTIAL 2018-12-06 16:40:[address] [facility] GROUP B STREPTOCOCCUS BY 2018-12-06 16:40:00 Marycruz Quevedo [facility] PCR [facility] POCT URINALYSIS 2018-12-06 15:35:00 Allie Miller [facility] CONSENT/REFUSAL FOR 2018-12-03 18:58:48 Doctor Unassgeorge, [facility] DIAGNOSIS AND TREATMENT [facility] ASSIGNMENT OF BENEFITS 2018-12-03 18:58:36 Doctor Unassgeorge, [facility] Name [facility] NON-STRESS TEST 2018-11-29 18:37:[address] [facility] POCT URINALYSIS 2018-11-29 17:59:00 Allie Miller [facility] NON-STRESS TEST 2018-11-26 17:49:39 Inga Moore [facility] POCT URINALYSIS 2018-11-26 15:18:00 Allie Miller [facility] SECOND AND THIRD TRIMESTER 2018-11-22 16:13:00 Mila Ferguson [facility] NON-STRESS TEST 2018-11-22 14:36:[address] [facility] POCT URINALYSIS 2018-11-22 13:14:00 Allie Miller [facility] CONSENT/REFUSAL FOR 2018-11-19 17:28:50 Doctor Unassigned, [facility] DIAGNOSIS AND TREATMENT [facility] ASSIGNMENT OF BENEFITS 2018-11-19 17:28:38 Doctor Unassigned, [facility] NON-STRESS TEST 2018-11-19 14:56:33 Alison Reis [facility] POCT URINALYSIS 2018-11-19 14:29:00 Allie Miller [facility] NON-STRESS TEST 2018-11-15 20:16:30 Modesto De La Rosa [facility] POCT URINALYSIS 2018-11-15 19:31:00 Allie Miller [facility] NON-STRESS TEST 2018-11-12 17:13:21 Inga Moore [facility] POCT URINALYSIS 2018-11-12 15:55:00 Allie Miller [facility] Encounters Start End Encounter Admission Attending Care Care Encounter Source Date/Time Date/Time Type Type Clinicians Facility Department ID 2020-05-03 Inpatient UR Maria G, [facility] INTE [id number] [facility] 03:53:00 Casey [id number] [facility] 2021-12-09 2021-12-09 Outpatient R [facility] [id number] [facility] 09:30:00 09:30:00 [id number] ity of [facility] 2021-09-14 2021-09-14 Outpatient R [facility] [id number] Univers 14:00:00 14:00:00 [id number] ity of [facility] 2021-09-14 2021-09-14 [facility] [id number] Univers 14:00:00 14:00:00 ZENON ity of [facility] 2021-09-04 2021-09-04 Orders Doctor JARAD 1.2.840.114 [id number] Univers 00:00:00 00:00:00 Only Unassigned, ISRA[place] 350.1.13.[address] [facility] 4.2.7.2.686 Eladio as [id number] [facility] 009 [address] 2021-08-27 2021-08-27 Transition MARY Richard 1.2.840.114 [id number] Univers 00:00:00 00:00:00 of Care Sandi ARCE 350.1.13.10 [place] of [place] [id number] [facility] 403 Branch 2021-08-24 2021-08-26 [facility] [id number] Univers 03:17:00 15:30:00 MATIAS ity [facility] 2021-08-24 2021-08-26 [facility] OC 1.2.840.114 [id number] Univers 03:17:00 15:30:00 Encounter Matiaskamari WOOD 350.1.13.10 ity of [facility] 4.2.7.2.686 Eladio as [id number] [facility] 097 Branch 2021-05-04 2021-05-05 Inpatient EM Ta [facility]01 [id number] [facility] 01:14:00 14:01:00 Fatemeh [facility] 2021-05-04 2021-05-05 Inpatient EM Ta [facility]01 [id number] 1-20 [facility] 01:14:00 14:01:00 Fatemeh [id number] [facility] [place] 2021-05-03 2021-05-03 Emergency EM Chelo Ramírez [facility] [id number] 31-20 [facility] 23:33:00 23:33:00 [id number] [facility] 2021-03-02 2021-03-02 Emergency X [facility] ERT [id number] Univers 22:11:00 22:41:00 ity [facility] 2020-08-25 2020-08-26 Outpatient E [facility] [id number] Memoria 02:37:00 18:00:00 DEBRAPercy Oleary [facility] l 2020-07-06 2020-07-06 Patient Chato, [facility] 1.2.840.114 [id number] Univers 00:00:00 00:00:00 Outreach Birddanny WANG 350.1.13.10 i ty of [facility] [place].2.7.2.[place] NOEMYJOSAFAT [id number] [facility] 2019-07-13 2019-07-13 Nurse JARAD Douglas 1.2.840.114 [id number] 00:00:00 00:00:00 Triage Aracelisjonathan WOOD 350.1.13.10 HOSPITAL 4.2.7.2.686 [id number] 2019-07-13 2019-07-13 JARAD Santamaria 1.2.840.114 [id number] 00:00:00 00:00:00 Triage Melinda Leta CHAUDHARIY 350.1.13.10 [facility] 4.2.7.2.686 [id number] 019 2019-07-13 2019-07-13 Nurse JARAD Douglas 1.2.840.114 [id number] Univers 00:00:00 00:00:00 Triage Aracelis ISRAEL 350.1.13.10 [facility] 4.2.7.2.686 [place]io as [id number] [address] 2019-07-13 2019-07-13 JARAD Santamaria 1.2.840.114 [id number] Univers 00:00:00 00:00:00 Triage Melinda D ISRAEL 350.1.13.10 i [facility] of [facility] 4.2.7.2.686 [place]io as [id number] [address] 2018-12-31 2019-01-01 [facility] 1.2.[facility]140 [id number] 21:55:55 14:19:00 Encounter Jesse Mabel ISRAEL 350.1.13.10 ANNEX 4.2.7.2.686 [id number] [facility] 2018-12-31 2019-01-01 [facility] 1.2.656.430 [id number] [facility] 21:55:55 14:19:00 Encounter Jesse WOOD 350.1.13.10 ity [facility] [place] [id number] [address] 2018-12-31 2018-12-31 Nurse Visit, [facility] 1.2.840.114 [id number] 15:10:27 15:53:28 Visit Jerel NURSING HOME ASSISTANT 350.1.13.[address] [facility] 4.2.7.2.686 MATERNAL [id number] & CHILD 107 [facility] 2018-12-31 2018-12-31 [facility] 1.2 .840.114 [id number] [facility] 15:10:27 15:53:28 Visit Allie Miller NURSING HOME ASSISTANT 350.1.13. 10 ity [facility] 4.2.7.2.686 Eladio as MATERNAL [phone] Med ical & CHILD [address] [place] [address] 2018-12-31 2018-12-31 Telephone AMANDA Duran 1.2.840.114 [id number] 00:00:00 00:00:00 Rimma Guadalupe NURSING HOME ASSISTANT 350.1.13.10 [facility] 4.2.7.2.686 MATERNAL [id number] & CHILD 107 [facility] 2018-12-31 2018-12-31 Telephone JARAD Upton 1.2.840.114 [id number] 00:00:00 00:00:00 Gilson WOOD 350.1.13.10 [facility] 4.2.7.2.686 [id number] [facility] 2018-12-31 2018-12-31 Telephone AMANDA Duran 1.2.840.114 [id number] Univers 00:00:00 00:00:00 Rimma Guadalupe NURSING HOME ASSISTANT 350.1.13.[address] [facility] 4.2.7.2.686 Eladio as MATERNAL [id number] [facility] ical & CHILD [address] [place] [address] 2018-12-31 2018-12-31 Telephone JARAD Upton 1.2.840.114 [id number] Univers 00:00:00 00:00:00 Gilson WOOD 350.1.13.10 i ty of [facility] 4.2.7.2.686 Eladio as [id number] [facility] [address] 2018-12-28 2018-12-29 Emergency [facility], [facility] 1.2.896.638 [id number] 19:29:15 00:59:00 Alla Lopez 350.1.13.10 [place] 4.2.7.2.686 [place] [id number] [facility] 2018-12-28 2018-12-29 Emergency [facility], [facility] 1.2.931.344 [id number] [facility] 19:29:15 00:59:00 Alla [place] 350.1.13.10 ity of [place] 4.2.7.2.686 [facility] [id number] [address] 2018-12-28 2018-12-28 Nurse Visit, [facility] 1.2.840.114 [id number] 12:55:55 13:47:08 [facility] NURSING HOME ASSISTANT 350.1.13.[address] [facility] 4.2.7.2.686 MATERNAL [id number] & CHILD [address] [place] [address] 2018-12-28 2018-12-28 Nurse Visit, [facility] Nurse [facility] 1.2 .840.114 [id number] [facility] 12:55:55 13:47:08 Visit Max Velarde NURSING HOME ASSISTANT 350.1.13.[address] [facility] 4.2.7.2.686 Eladio as MATERNAL [phone] [facility] ical & CHILD [address] [place] [address] 2018-12-20 2018-12-24 Hospital JARAD Lizama 1.2.840.114 [id number] 18:42:00 13:40:00 Encounter Ree WOOD 350.1.13.10 ANNEX 4.2.7.2.686 [id number] [facility] 2018-12-20 2018-12-24 [facility] JARAD Lizama 1.2.840.114 [id number] Univers 18:42:00 13:40:00 Encounter Ree WOOD 350.1.13.10 ity of [place].7.2.686 [place] [id number] [address] 2018-12-20 2018-12-20 Tucking Machine Operator Ultrasound, [facility] 1.2.840.114 [id number] 11:12:37 11:42:37 Visit Ang-Mfm NURSING HOME ASSISTANT 350.1.13.10 REGIONAL 4.2.7.2.686 MATERNAL [id number] & CHILD 369 [facility] 2018-12-20 2018-12-20 Tucking Machine Operator Ultrasound, Ang-Mfm [facility] 1.2 .840.114 [id number] [facility] 11:12:37 11:42:37 Visit Mila Ferguson NURSING HOME ASSISTANT 350.1.13.10 [facility] 4.2.7.2.686 [place] MATERNAL [id number] Med ical & CHILD 369 [facility] 2018-12-20 2018-12-20 Routine Risk, [facility] 1.2.840.114 [id number] 10:20:16 11:05:03 Ang-Rmchp-N NURSING HOME ASSISTANT 350.1.13.10 Visit p/High REGIONAL 4.2.7.2.686 MATERNAL [id number] & CHILD 107 [facility] 2018-12-20 2018-12-20 Routine Risk, Ink-Ypfhz-Oh/High [facility] 1. 2.840.114 [id number] Univers 10:20:16 11:05:03 Ferguson Mila Iglesiasy NURSING HOME ASSISTANT 350.1.13.10 ity of Visit REGIONAL 4.2.7.2.686 Eladio as MATERNAL [id number] Med ical & CHILD 107 [facility] 2018-12-18 2018-12-18 Routine Velarde, [facility] 1.2.840.114 [id number] 12:50:29 14:00:55 Roshunda R NURSING HOME ASSISTANT 350.1.13.10 Visit REGIONAL 4.2.7.2.686 MATERNAL [id number] & CHILD 107 [facility] 2018-12-18 2018-12-18 Routine Velarde [facility] 1.2.840.114 [id number] Univers 12:50:29 14:00:55 Roshunda R NURSING HOME ASSISTANT 350.1.13.10 ity of Visit REGIONAL 4.2.7.2.686 Eladio as MATERNAL [id number] Med ical & CHILD [address] [place] [address] 2018-12-13 2018-12-13 Routine Pool, [facility]ERSIT 1.2.840.114 [id number] 13:28:19 14:24:11 Resident Y HEALTH 350.1.13.10 Visit CLINICS 4.2.7.2.686 [id number] 113 2018-12-13 2018-12-13 Routine Pool, [facility] Resident UNIVERSIT 1.2.8 40.114 [id number] Univers 13:28:19 14:24:11 TeresaInga HEALTH 350.1. 13.10 ity of Visit [facility] 4.2.7.2.686 Chacorta Barton [id number] [address] 2018-12-13 2018-12-13 Tucking Machine Operator 2, [facility] UNIVERSIT 1.2.840.11 4 [id number] 12:48:28 13:23:20 Visit [facility] Room Y HEALTH 350.1.13.10 CLINICS 4.2.7.2.686 [id number] [facility] 2018-12-13 2018-12-13 Tucking Machine Operator 2, [facility] Us Room UNIVERSIT 1 .2.840.114 [id number] Univers 12:48:28 13:23:20 Visit Inga Moore HEALTH 350.1.1 3.10 ity of Jesse Woods [facility] 4.2.7.2.686 [place] [phone] [place] [address] Branch 2018-12-13 2018-12-13 Orders Doctor ABRAHAM 1.2.840.114 [id number] 00:00:00 00:00:00 Only Unassigned, ISRAEL 350.1.13.10 [facility] 4.2.7.2.686 [id number] 009 2018-12-13 2018-12-13 Orders Doctor JARAD 1.2.840.114 [id number] Univers 00:00:00 00:00:00 Only Unassigned, ISRAEL 350.1.13.10 ity of [facility] 4.2.7.2.686 Eladio as [id number] [address] 2018-12-11 2018-12-11 Case JARAD Chris 1.2.840.114 [id number] 00:00:00 00:00:00 Management Ruba IS[place]EL 350.1.13.10 HOSPITAL 4.2.7.2.686 [id number] 013 2018-12-11 2018-12-11 Case JARAD Chris 1.2.840.114 [id number] Univers 00:00:00 00:00:00 Management Ruba ISRAEL 350.1.13.10 ity of HOSPITAL 4.2.7.2.686 Eladio as [id number] [address] 2018-12-10 2018-12-10 Routine Faculty, [facility] 1.2.840.114 [id number] 10:35:35 11:46:44 Ad Beachjayesh NURSING HOME ASSISTANT 350.1.13.10 Visit [facility] 4.2.7.2.686 MATERNAL [id number] & CHILD 107 [facility] 2018-12-10 2018-12-10 Routine Faculty, Ad Samson [facility] 1.2 .840.114 [id number] [facility] 10:35:35 11:46:44 Jesse Woods NURSING HOME ASSISTANT 350.1.13.10 ity of Visit REGIONAL 4.2.7.2.686 Eladio as MATERNAL [id number] Med ical & CHILD 107 [facility] 2018-12-06 2018-12-06 Tucking Machine Operator Ultrasound, [facility] 1.2.840.114 [id number] 11:40:06 12:10:06 [facility] NURSING HOME ASSISTANT 350.1.13.10 [facility] 4.2.7.2.686 MATERNAL [id number] & CHILD 369 [facility] 2018-12-06 2018-12-06 Tucking Machine Operator Ultrasound, Ad-Mfm [place] 1.2 .840.114 [id number] Univers 11:40:06 12:10:06 Visit Marycruz Quevedo NURSING HOME ASSISTANT 350.1.13.10 ity of REGIONAL 4.2.7.2.686 Eladio as MATERNAL [phone] Med ical & CHILD 369 [facility] 2018-12-06 2018-12-06 Routine Risk, [facility] 1.2.840.114 [id number] 10:02:15 11:39:46 Ang-Rmchp-N NURSING HOME ASSISTANT 350.1.13.10 Visit p/High REGIONAL 4.2.7.2.686 MATERNAL [id number] & CHILD 107 [facility] 2018-12-06 2018-12-06 Routine Risk, Htr-Gqmus-Ri/High [facility] 1. 2.840.114 [id number] Univers 10:02:15 11:39:46 Marycruz Quevedo NURSING HOME ASSISTANT 350.1.13.10 ity of Visit REGIONAL 4.2.7.2.686 Eladio as MATERNAL [id number] [facility] ical & CHILD 107 [facility] 2018-12-03 2018-12-03 [facility] Lorrie Olmos [facility] 1.2.840.114 [id number] 13:57:00 16:45:00 Encounter [facility] 350.1.13.10 [place] 4.2.7.2.686 [place] [id number] [facility] 2018-12-03 2018-12-03 [facility] 1.2.840.114 [id number] [facility] 13:57:00 16:45:00 Encounter Cam [place] 350.1.13.10 ity of [place]2.7.2.[place] [id number] [address] 2018-12-03 2018-12-03 Routine Faculty, [facility] 1.2.840.114 [id number] 09:27:42 10:36:46 Ang Rmchp NURSING HOME ASSISTANT 350.1.13.10 Visit [facility] 4.2.7.2.686 MATERNAL [id number] & CHILD 107 [facility] 2018-12-03 2018-12-03 Routine Faculty, Ad Samson [facility] 1.2 .840.114 [id number] Univers 09:27:42 10:36:46 Kyle Cordero NURSING HOME ASSISTANT 350.1.13. 10 ity of Visit REGIONAL 4.2.7.2.686 Eladio as MATERNAL [id number] Med ical & CHILD 107 [facility] 2018-11-29 2018-11-29 Routine Risk, [facility] 1.2.840.114 [id number] 12:45:37 13:38:16 [facility] NURSING HOME ASSISTANT 350.1.13.10 Visit p/High REGIONAL 4.2.7.2.686 MATERNAL [id number] & CHILD [address] [place] [address] 2018-11-29 2018-11-29 Routine Risk, Pte-Cnsgv-Sk/High [facility] 1. 2.840.114 [id number] [facility] 12:45:37 13:38:16 Mila Ferguson NURSING HOME ASSISTANT 350.1.13.10 ity of Visit REGIONAL 4.2.7.2.686 Eladio as MATERNAL [id number] [facility] ical & CHILD [address] [place] [address] 2018-11-29 2018-11-29 Tucking Machine Operator Ultrasound, [facility] 1.2 .840.114 [id number] [facility] 11:09:01 11:48:17 Visit Calvin Patel NURSING HOME ASSISTANT 350.1.13.10 ity of REGIONAL 4.2.7.2.686 Eladio as MATERNAL [id number] [facility] ical & CHILD 369 [facility] 2018-11-26 2018-11-26 Routine Faculty, Ad Beachjayesh [facility] 1.2 .840.114 [id number] Univers 10:07:03 11:06:11 Inga Moore NURSING HOME ASSISTANT 350.1.1 3.10 ity of Visit REGIONAL 4.2.7.2.686 Eladio as MATERNAL [phone] [facility] ical & CHILD 107 [facility] 2018-11-22 2018-11-22 Tucking Machine Operator 5, [facility] Usg Room UNIVERSIT 1 .2.840.114 [id number] Univers 10:44:00 11:48:35 Visit Inga Moore [facility] 350.1.1 3.10 ity of Alison Reis [facility] 4.2.7.2.686 [place] [id number] [facility] [address] 2018-11-22 2018-11-22 Routine [facility] 1.2.317.865 [id number] Univers 08:04:45 09:05:49 Rimma Anayeli NURSING HOME ASSISTANT 350.1.13.10 i ty of Visit [facility] 4.2.7.2.686 Eladio as MATERNAL [id number] [facility] ical & CHILD [address] [place] [address] 2018-11-19 2018-11-19 [facility] Lorrie Olmos [facility] 1.2.840.114 [id number] [facility] 12:24:36 16:05:00 Encounter [facility] 350.1.13.10 ity of [place] 4.2.7.2.686 [facility] [id number] [facility] [address] 2018-11-19 2018-11-19 Routine Faculty, Ad [facility] 1.2 .840.114 [id number] [facility] 09:18:45 10:07:14 Alison Reis NURSING HOME ASSISTANT 350.1.13.[address] [facility] 4.2.7.2.686 Eladio as MATERNAL [id number] [facility] & CHILD [address] [place] [address] 2018-11-15 2018-11-15 Routine Faculty, Ad [facility] 1.2 .840.114 [id number] Univers 13:56:25 15:11:31 Modesto De La Rosa NURSING HOME ASSISTANT 350.1.13.[address] [facility] 4.2.7.2.686 Eladio as MATERNAL [id number] [facility] ical & CHILD [address] [place] [address] 2018-11-14 2018-11-14 Tucking Machine Operator Ultrasound, [facility] 1.2 .840.114 [id number] Univers 10:38:34 11:32:09 Visit Alison Reis NURSING HOME ASSISTANT 350.1.13.[address] [facility] 4.2.7.2.686 Eladio as MATERNAL [id number] Med ical & CHILD 369 [facility] 2018-11-12 2018-11-12 Routine Faculty, Ad Samson [facility] 1.2 .840.114 [id number] Univers 10:38:07 12:09:10 TeresaInga NURSING HOME ASSISTANT 350.1.1 3.10 ity of Visit REGIONAL 4.2.7.2.686 Eladio as MATERNAL [phone] Med ical & CHILD 107 [facility] 2018-11-01 2018-11-01 Case Jose C [facility] 1.2.983.248 [id number] Univers 00:00:00 00:00:00 Management [facility] 350.1.13.10 ity of CLINICS 4.2.7.2.686 [place] [phone] [facility] 113 [address] Results Test Description Test Time Test Comments Results Result Comments Source CBC WITH DIFF 2021-08-26 12:06:19 Test Item Value Reference Range Interpretation Comme nts WBC (test code = 6690-2) See_Comment [A utomated message] The system which ge nerated this result transmit ramana reference range: 4.30 - 1 1.10 10*3/?L. The reference r susan was not used to interpr et this result as normal/abnor mal. RBC (test code = 789-8) See_Comment L [Au tomated message] The system which ge nerated this result transmit ramana reference range: 3.93 - 5 .25 10*6/?L. The reference r susan was not used to interpr et this result as normal/abnor mal. HGB (test code = 718-7) 8.0 g/dL 11.6-15.0 L HCT (test code = 4544-3) 27.8 % 35.7-45.2 L MCV (test code = 787-2) 85.0 fL 80.6-95.5 MCH (test code = 785-6) 24.5 pg 25.9-32.8 L MCHC (test code = 786-4) 28.8 g/dL 31.6-35.1 L RDW-SD (test code = 01301-2) 54.0 fL 39.0-49.9 H RDW-CV (test code = 788-0) 17.6 % 12.0-15.5 H PLT (test code = 777-3) See_Comment L [Au tomated message] The system which ge nerated this result transmit ramana reference range: 166 - 35 8 10*3/?L. The reference range was not used to interpret th is result as normal/abnormal . MPV (test code = 89043-5) 11.7 fL 9.5-12.9 NRBC/100 WBC (test code = See_Comment [ Automated message] The 2904798607) system which ge nerated this result transmit ramana reference range: 0.0 - 10 .0 /100 WBCs. The reference r susan was not used to interpr et this result as normal/abnor mal. NRBC x10^3 (test code = See_Comment [Au tomated message] The 8812402797) system which ge nerated this result transmit ramana reference range: 10*3/?L. The reference range was not u sed to interpret this result as normal/abnormal . GRAN MAT (NEUT) % (test code 65.3 % = 770-8) IMM GRAN % (test code = 0.60 % 2275236208) LYMPH % (test code = 736-9) 20.9 % MONO % (test code = 5905-5) 8.9 % EOS % (test code = 713-8) 3.8 % BASO % (test code = 706-2) 0.5 % GRAN MAT x10^3(ANC) (test 4.24 10*3/uL 1.88-7.09 code = 3771098866) IMM GRAN x10^3 (test code = 0.04 10*3/uL 0.00-0.06 8043415651) LYMPH x10^3 (test code = 1.36 10*3/uL 1.32-3.29 731-0) MONO x10^3 (test code = 0.58 10*3/uL 0.33-0.92 742-7) EOS x10^3 (test code = 0.25 10*3/uL 0.03-0.39 711-2) BASO x10^3 (test code = 0.03 10*3/uL 0.01-0.07 704-7) Lab Interpretation (test Abnormal code = 08857-7) [facility]ITATIVE NAAT 2021-08-25 22:03:12 Test Item Value Reference Range Interpretation Comments HCV Quantitative NAAT Not Detected log - log IU/mL (test code IU/mL = 98928-7) HCV Quantitative NAAT Not Detected - IU/mL (test code = IU/mL 07734-9) HCV Quantitative Detected Not Detected A Interpretation (test code = 4733148178) MICKY (test code = MICKY) The Aptima HCV Quant Dx assay is an FDA-approved real-time animal trainer supervisor-mediated amplification (TMA) test used for both detection and quantitation of hepatitis C virus (HCV) RNA in human serum and plasma from HCV-infected individuals. ?It is intended for use as an aid in the diagnosis of active HCV infection and the management of HCV-infected patients undergoing HCV antiviral drug therapy. ?It is not approved for use as a screening test for the presence of HCV RNA in blood or blood products. The quantitative range of this assay is 1.00 - 8.00 log IU/mL or 10 - 100,000,000 IU/mL. An interpretation of "Not Detected" does not rule out the presence of inhibitors in the patient specimen or HCV RNA concentration below the level of detection of the test. ?Care should be taken when interpreting any single viral load determination. Detected, not Quantifiable: HCV RNA detected, but at a level below 10 IU/mL (1.0 log IU/mL). ?HCV RNA concentration is below the lower limit of quantitation of the assay. Indeterminate: Error indicated in the generation of the result. ?Please submit a new specimen for repeat testing if clinically indicated. Lab Interpretation Abnormal (test code = 25547-5) [facility] 19[facility]43:00 Test Item Value Reference Range Interpretation Comments TRANSFERRN (test code = 8324718358) 255 mg/dL 168-336 Lab Interpretation (test code = Normal 47252-9) [facility] Center[facility]ON BINDING [id number] 17:22:48 Test Item Value Reference Range Interpretation Comments TIBC (test code = 0388341809) 351 ug/dL 250-410 % FE SAT (test code = 6975088841) 9 % 20-50 L Lab Interpretation (test code = Abnormal 82959-6) [facility] WITH [id number] 12:43:10 Test Item Value Reference Range Interpretation Comments [...] as normal/abnormal . HGB (test code = 7.0 g/dL 11.6-15.0 L 718-7) HCT (test code = 23.8 % 35.7-45.2 L 4544-3) MCV (test code = 84.4 fL 80.6-95.5 787-2) MCH (test code = 24.8 pg 25.9-32.8 L 785-6) MCHC (test code = 29.4 g/dL 31.6-35.1 L 786-4) RDW-SD (test code = 52.3 fL 39.0-49.9 H 45462-6) RDW-CV (test code = 17.1 % 12.0-15.5 H 788-0) PLT (test code = See_Comment L [Automated 777-3) message] The sy stem which generated this result transmitted reference range : 166 - 358 10*3/ ?L. The reference r susan was not used to interpret this result as normal/abnormal . MPV (test code = 12.0 fL 9.5-12.9 25419-4) IPF % (test code = 8.6 % 1.3-7.7 H Platelet count [id number]) measured by fluorescence method. NRBC/100 WBC (test See_Comment [Automat ed code = [id number]) message] The system which generated this result transmitted reference range : 0.0 - 10.0 /100 WBCs. The refer ence range was not u sed to interpret th is result as normal/abnormal . NRBC x10^3 (test code See_Comment [Auto mated = [id number]) message] The s ystem which generated this result transmitted reference range : 10*3/?L. The reference range was not used to interpret this result as normal/abnormal . GRAN MAT (NEUT) % 71.0 % (test code = 770-8) IMM GRAN % (test code 0.50 % = [id number]) LYMPH % (test code = 14.1 % 736-9) MONO % (test code = 9.3 % 5905-5) EOS % (test code = 4.6 % 713-8) BASO % (test code = 0.5 % 706-2) GRAN MAT x10^3(ANC) 4.50 10*3/uL 1.88-7.09 (test code = [id number]) IMM GRAN x10^3 (test 0.03 10*3/uL 0.00-0.06 code = [id number]) LYMPH x10^3 (test code 0.89 10*3/uL 1.32-3.29 L = 731-0) MONO x10^3 (test code 0.59 10*3/uL 0.33-0.92 = 742-7) EOS x10^3 (test code = 0.29 10*3/uL 0.03-0.39 711-2) BASO x10^3 (test code 0.03 10*3/uL 0.01-0.07 = 704-7) Lab Interpretation Abnormal (test code = 02698-9) [facility] RBC (in units), 2 Units 2021-08-25 03:06:35 Test Item Value Reference Range Interpretation Comments Cross Match Result Compatible (test code = 4409) ISBT Blood Type Code (test code = 940639) Unit Blood Type (test A Pos code = 4410) Unit Number (test [id number] code = 4411) Blood Expiration Date & Time (test code = 331908) Status Information Issued (test code = 4412) Product Red Blood Cells Identification (test code = 4413) Product Code (test X3219P60 Performed at [facility] code = 4414) Laboratory Services - [facility] Blood [address] [place] [address]Utid Free: [phone] A No. [id number] [facility] Center[facility]. [facility]OLIC PANEL (97342)2021-08-25 02:25:15 Test Item Value Reference Range Interpretation Comments NA (test code = 138 mmol/L 135-145 4894925636) K (test code = 3.6 mmol/L 3.5-5.0 3481603085) CL (test code = 108 mmol/L 98-108 6825784358) CO2 TOTAL (test code = 21 mmol/L 23-31 L 0183715727) AGAP (test code = 2-16 2894044474) BUN (test code = 6 mg/dL 7-23 L 1525758972) GLUCOSE (test code = 105 mg/dL 70-110 3112585499) CREATININE (test code = 0.55 mg/dL 0.50-1.04 5358926888) TOTAL BILI (test code = 0.5 mg/dL 0.1-1.0 8170399078) CALCIUM (test code = 8.3 mg/dL 8.6-10.6 L 6196473721) T PROTEIN (test code = 6.7 g/dL 6.3-8.2 3986735683) ALBUMIN (test code = 3.7 g/dL 3.5-5.0 9644896133) ALK PHOS (test code = 52 U/L 34-122 3180373875) ALTv (test code = 12 U/L 5-35 1742-6) AST(SGOT) (test code = 19 U/L 13-40 8104323641) eGFR (test code = mL/min/1.73m2 9123452742) MICKY (test code = MICKY) Association of Glomerular Filtration Rate (GFR) and Staging of Kidney Disease* + --+ --+ ------+| GFR (mL/min/1.73 m2) ?| With Kidney Damage ?| ?Without Kidney Damage+ --------+ --------+ +| ?>90 ?| ?Stage one ?| ? Normal ?+ ---+ ---+ -------+| ?60-89 ?| ?Stage two ?| ? Decreased GFR ? + --+ --+ ------+| ?30-59 ?| ?Stage three ?| ? Stage three ? + --+ --+ ------+| ?15-29 ?| ?Stage four ? | ? Stage four ?+ ---+ ---+ -------+| ?<15 (or dialysis) ? ?| ?Stage five ? | ? Stage five ?+ ---+ ---+ -------+ *Each stage assumes the associated GFR level has been in effect for at least three months. ?Stages 1 to 5, with or without kidney [...] tests). Lab Interpretation Abnormal (test code = 12592-2) [facility] CenterHCV [id number] 01:23:26 Test Item Value Reference Range Interpretation Comments HCV Ab (test code = Positive 50146-7) HCV Semi-Quantitative (test code = 45997-0) MICKY (test code = Positive for HCV antibody MICKY) with a high signal to cutoff ratio (s/c). ?Supplementary test for Hepatitis C Virus RNA Real-Time PCR is recommended if clinically indicated. ?If any questions, please contact Clinical Chemistry Director director airport operations at [phone]. [facility] CenterFERRITIN [id number] 01:06:44 Test Item Value Reference Range Interpretation Comments FERRITIN (test code = 7.6 ng/mL 6.0-137.0 8498398140) MICKY (test code = MICKY) Biotin has been reported to cause a negative bias, interpret results relative to patient's use of biotin. Lab Interpretation (test Normal code = 30523-1) [facility] CenterIRON2022-05-11 00:13:37 Test Item Value Reference Range Interpretation Comments IRON (test code = 0533686404) 33 ug/dL 50-160 L Lab Interpretation (test code = Abnormal 72936-2) [facility] CenterTransfusion Reaction [id number] 20:36:31 Test Item Value Reference Range Interpretation Comments CLERICAL CK Acceptable Performed at [facility] (test code = Laboratory Serv ices - 542) [facility] Blood [address] [place] [address] s [address]Bltg Free: [phone] A No. [id number] PRE SERUM (test No Hemolysis Performed at [facility] code = 1637) NotedNo [facility] Laboratory S ervices - Noted [facility] Blood [address] s [address]Qnbl Free: [phone] A No. [id number] POST ABO & RH A Positive Performed at [facility] (test code = Laboratory Serv ices - 1616) [facility] Blood [address] [place] [address] s [address]Hgmm Free: [phone] A No. [id number] PRODUCT (test RBC- See comment [id number] 08430 ? code = 2110) ?[id number] med at [facility] Laboratory Services - [facility] Blood [address] [address]Hjyh Free: [phone] A No. [id number] POST MARCIANO (test Negative Performed at [facility] code = 1619) Laboratory Serv ice - [facility] Blood [address] s [address]Ubyf Free: [phone] A No. [id number] POST SERUM (test No Hemolysis Performed a t [facility] code = 1620) NotedNo [facility] Laboratory S ervices - Noted [facility] Blood [address] s [address]Wiir Free: [phone] A No. [id number] PRELIM RESULT Negative TxRxn Negative: No evidence (test code = of a hemolytic 3962) transfusion sofie ction; Blood Bank phys ician interpretation to follow.Performe d at [facility] Laboratory Services - [facility] Blood [address] [place] [address]Suar Free: [phone] A No. [id number] [facility] BranchUrinalysis (Spun)2021-08-24 20:03:41 Test Item Value Reference Range Interpretation Comments APPEARANCE (test code = Hazy Clear A 3696439712) COLOR (test code = Red Yellow A Light red in color 6546852021) PH (test code = 4.8-8.0 9421277336) SP GRAVITY (test code = 1.003-1.030 6356607807) GLU U QUAL (test code = Normal Normal 7087489838) BLOOD (test code = 3+ Negative A 6097973601) KETONES (test code = Negative Negative 5018844899) PROTEIN (test code = 100 mg/dL Negative A 2887-8) UROBILIN (test code = Normal Normal 4274251941) BILIRUBIN (test code = Negative Negative 6336581908) NITRITE (test code = Negative Negative 0843020777) LEUK MISBAH (test code = 25/uL Negative A 8789866259) RBC/HPF (test code = See_Comment H [Autom ated message] 8004702485) The system [employer] generated this result transmit ramana reference range : 0 - 3 HPF. The refe rence range was not u sed to interpret th is result as normal/abnormal . WBC/HPF (test code = See_Comment H [Autom ated message] 8610966038) The system [employer] generated this result transmit ramana reference range : 0 - 5 HPF. The refe rence range was not u sed to interpret th is result as normal/abnormal . BACTERIA (test code = Few Negative A 8843618221) MUCOUS (test code = Slight Negative LPF A 6705823663) SQ EPITH (test code = See_Comment H [Auto mated message] 6756681134) The system [employer] generated this result transmit ramana reference range : <=2 HPF. The refere nce range was not u sed to interpret th is result as normal/abnormal . Lab Interpretation (test Abnormal code = 02234-8) [facility] WITH [id number] 09:45:32 Test Item Value Reference Range Interpretation Comments [...] as normal/abnormal . HGB (test code = 5.0 g/dL 11.6-15.0 LL 718-7) HCT (test code = 18.9 % 35.7-45.2 L 4544-3) MCV (test code = 84.0 fL 80.6-95.5 787-2) MCH (test code = 22.2 pg 25.9-32.8 L 785-6) MCHC (test code = 26.5 g/dL 31.6-35.1 L 786-4) RDW-SD (test code = 55.6 fL 39.0-49.9 H 48957-6) RDW-CV (test code = 18.6 % 12.0-15.5 H 788-0) PLT (test code = See_Comment L [Automated 777-3) message] The sy stem which generated this result transmitted reference range : 166 - 358 10*3/ ?L. The reference r susan was not used to interpret this result as normal/abnormal . MPV (test code = 11.5 fL 9.5-12.9 46318-3) NRBC/100 WBC (test See_Comment [Automat ed code = 0525738194) message] The system which generated this result transmitted reference range : 0.0 - 10.0 /100 WBCs. The refer ence range was not u sed to interpret th is result as normal/abnormal . NRBC x10^3 (test code See_Comment [Auto mated = 3831940321) message] The s ystem which generated this result transmitted reference range : 10*3/?L. The reference range was not used to interpret this result as normal/abnormal . GRAN MAT (NEUT) % 63.2 % (test code = 770-8) IMM GRAN % (test code 0.20 % = 1780413278) LYMPH % (test code = 25.0 % 736-9) MONO % (test code = 8.6 % 5905-5) EOS % (test code = 2.4 % 713-8) BASO % (test code = 0.6 % 706-2) GRAN MAT x10^3(ANC) 3.22 10*3/uL 1.88-7.09 (test code = 4710874677) IMM GRAN x10^3 (test <0.03 0.00-0.06 code = 7346466175) LYMPH x10^3 (test code 1.27 10*3/uL 1.32-3.29 L = 731-0) MONO x10^3 (test code 0.44 10*3/uL 0.33-0.92 = 742-7) EOS x10^3 (test code = 0.12 10*3/uL 0.03-0.39 711-2) BASO x10^3 (test code 0.03 10*3/uL 0.01-0.07 = 704-7) Lab Interpretation Abnormal (test code = 42603-9) [facility] CenterType and Screen - ONCE [id number] 09:42:16 Test Item Value Reference Range Interpretation Comments ABO & RH (test code A POSITIVE Performe d at [facility] = 20) Laboratory Serv [facility] Blood Bank[address] [facility] s [address]Sxrx Free: [phone] A No. [id number] IAT (test code = Negative Performed a t [facility] 1185) Laboratory Serv [facility] Blood Bank[address] [facility] s [address]Gyru Free: [phone] A No. [id number] [facility] CenterCB W/AUTO [id number] 08:31:00 Test Item Value Reference Range Interpretation Comments WHITE BLOOD CELL (test 8.0 K/mm3 6.5-12.3 Resul ts verified by code = WBC) repeat analysis RED BLOOD CELL (test 3.14 M/mm3 3.51-4.69 L code = RBC) HEMOGLOBIN (test code = 8.5 g/dL 10.1-13.8 L HGB) HEMATOCRIT (test code = 26.9 % 32.5-41.8 L HCT) MEAN CELL VOLUME (test 85.7 fL 84.6-96.6 N code = MCV) MEAN CELL HGB (test code 27.1 pg 27.3-33.9 L = MCH) MEAN CELL HGB 31.6 gm/dL 32.0-34.2 L CONCETRATION (test code = MCHC) RED CELL DISTRIBUTION 16.0 % 12.2-16.3 N WIDTH (test code = RDW) PLATELET COUNT (test 101 K/mm3 134-363 L code = PLT) MEAN PLATELET VOLUME 12.0 fL 9.2-12.7 N (test code = MPV) NEUTROPHIL % (test code 90.2 % 57.9-77.3 H = NT%) LYMPHOCYTE % (test code 6.6 % 14.5-29.7 L = LY%) MONOCYTE % (test code = 2.5 % 3.6-10.2 L MO%) EOSINOPHIL % (test code 0.0 % 0.0-3.0 N = EO%) BASOPHIL % (test code = 0.1 % 0.1-0.9 N BA%) NEUTROPHIL # (test code 7.3 K/mm3 = NT#) LYMPHOCYTE # (test code 0.5 K/mm3 = LY#) MONOCYTE # (test code = 0.2 K/mm3 MO#) EOSINOPHIL # (test code 0 K/mm3 = EO#) BASOPHIL # (test code = 0.0 K/mm3 BA#) RBC MORPHOLOGY REQUIRED NORMAL NORMAL (test code = RBCM) PLATELET MORPHOLOGY NORMAL NORMAL REQUIRED (test code = PLTMR) CBC W/AUTO [id number] 13:59:00 Test Item Value Reference Range Interpretation [...] LTS CALLED code = PLT) TO NIKOLAS POWER.READ JED K & CONFIRMED? Y.BY [id number] 1356 IMMATURE PLATELET 6.0 % 0.0-10.8 N [...] REQUIRED (test code = PLTMR) CBC W/AUTO [id number] 00:52:00 Test Item Value Reference Range Interpretation Comments WHITE BLOOD CELL (test 6.5 K/mm3 6.5-12.3 N code = WBC) RED BLOOD CELL (test 2.45 M/mm3 3.51-4.69 L code = RBC) HEMOGLOBIN (test code = 6.4 g/dL 10.1-13.8 LL RESU LTS CALLED TO HGB) CLIFFORD VILLAGOMEZ AD BACK & CONFIRME D? YBY [id number] 05/04/21 0025 HEMATOCRIT (test code = 21.5 [...] REQUIRED (test code = PLTMR) COMPREHENSIVE METABOLIC [id number] 00:38:00 Test Item Value Reference Range Interpretation [...] units/L 46-116 N code = ALKP) PROTHROMBIN [id number] 00:35:00 Test Item Value Reference Range Interpretation Comments PROTHROMBIN TIME PATIENT (test code 13.6 secs 10.1-12.3 H = PTP) THROMBOPLASTIN TIME [id number] 00:35:00 Test Item Value Reference Range Interpretation Comments THROMBOPLASTIN TIME PARTIAL (test 30.6 secs 22-38 N code = PTT) - DUP AB/PEL/SC/KTP6898-03-14 00:00:00 [facility] 1985 Sex: F Patient Name: BRI CAMPBELL Unit No: [id number] EXAMS: CPT CODE: [id number] DUP AB/PEL/SC/LTD 73028 PROCEDURE INFORMATION: Exam: US Pelvis Complete (Transabdominal), [...] and signed by: Reza Alexandre MD [facility] NAME: BRI CAMPBELL Radiology Department PHYS: DEMIAN. Chelo Ramírez MD [address] : 1985 AGE: 35 SEX: F [place], [place] [address] LOC: JOSSUE PHONE #: [phone] EXAM DATE: 05/04/2021 STATUS: REG ER FAX #: [phone] RAD NO: Page 1 Signed Report (CONTINUED) Patient Name: CAMPBELLBRI Unit No: [id number] EXAMS: CPT CODE: [id number] DUP AB/PEL/SC/LTD 20262 <Continued> CC: Chelo Ramírez MD Technologist: Griselda Streeter RDMS Probe: Trnscrbd D/ (0121) GCD.CPS Orig Print D/T: S: 05/04/2021 (0124) [facility] NAME: BRI CAMPBELL MICHAELWEI Radiology Department PHYS: LASHELL Chelo Ramírez MD [address] : 1985 AGE: 35 SEX: F [place] [address] LOC: F.ERS PHONE #: [phone] EXAM DATE: 05/04/2021 STATUS: REG ER FAX #: [phone] RAD NO: Page 2 Signed Report Patient Name: BRI CAMPBELL Unit No: [id number]: CPT CODE: [id number] DUP AB/PEL/SC/LTD 76850 <Continued> [facility] NAME: BRI CAMPBELL Radiology Department PHYS: LASHELL Chelo Ramírez MD [address] : 1985 AGE: 35 SEX: F [place] [address] LOC: F.ERS PHONE #: [phone] EXAM DATE: 05/04/2021 STATUS: REG ER FAX #: [phone] RAD NO: Page 3 Signed Report- US PELVIS [id number] 00:00:00 [facility] : 1985 Sex: F Patient Name: BRI CAMPBELL Unit No: [id number] EXAMS: CPT CODE: [id number] US PELVIS COMPLETE 22132 PROCEDURE INFORMATION: Exam: US Pelvis Complete (Transabdominal), [...] and signed by: Reza Alexandre MD [facility] NAME: BRI CAMPBELL Radiology Department PHYS: [facility] Chelo Ramírez MD [address] : 1985 AGE: 35 SEX: F [place] [address] LOC: F.ERS PHONE #: [phone] EXAM DATE: 05/04/2021 STATUS: REG ER FAX #: [phone] RAD NO: Page 1 Signed Report (CONTINUED) Patient Name: BRI CAMPBELL Unit No: [id number] EXAMS: CPT CODE: [id number] US PELVIS COMPLETE 63999 <Continued> CC: Chelo Ramírez MD Technologist: Griselda Streeter RDMS Probe: Trnscrbd D/ (0121) GCD.CPS Orig Print D/T: S: 05/04/2021 (0121) [facility] NAME: BRI CAMPBELL Radiology Department PHYS: Chelo Ramírez MD [address] : 1985 AGE: 35 SEX: F [place] [address] LOC: Maya.ERS PHONE #: [phone] EXAM DATE: 05/04/2021 STATUS: REG ER FAX #: [phone] RAD NO: Page 2 Signed Report Patient Name: BRI CAMPBELL Unit No: [id number]: CPT CODE: [id number] US PELVIS COMPLETE 60673 <Continued> [facility] NAME: BRI CAMPBELL MICHAELWEI Radiology Department PHYS: Chelo Ramírez MD [address] : 1985 AGE: 35 SEX: F [place], [place] [address] LOC: JOSSUE PHONE #: [phone] EXAM DATE: 05/04/2021 STATUS: GERBER ER FAX #: [phone] RAD NO: Page 3 Signed Report- US TRANSVAGINAL W/[id number] 00:00:00 [facility] : 1985 Sex: F Patient Name: BRI CAMPBELL Unit No: [id number] EXAMS: CPT CODE: [id number] US TRANSVAGINAL W/PELVIS 69959 PROCEDURE INFORMATION: Exam: US Pelvis Complete (Transabdominal), [...] and signed by: Reza Alexandre MD [facility] NAME: BRI CAMPBELL Radiology Department PHYS: DEMIAN. Chelo Ramírez MD [address] : 1985 AGE: 35 SEX: F [place], [place] [address] LOC: F.ERS PHONE #: [phone] EXAM DATE: 05/04/2021 STATUS: REG ER FAX #: [phone] RAD NO: Page 1 Signed Report (CONTINUED) Patient Name: BRI CAMPBELL Unit No: [id number] EXAMS: CPT CODE: [id number] US TRANSVAGINAL W/PELVIS 07754 <Continued> CC: Chelo Ramírez MD Technologist: Griselda Streeter RDMS Probe: [id number] Trnscrbd D/ (0121) GCD.CPS Orig Print D/T: S: 05/04/2021 (0122) [facility] NAME: BRI CAMPBELL Radiology Department PHYS: Chelo Ramírez MD [address] : 1985 AGE: 35 SEX: F [place], [place] [address] LOC: F.ERS PHONE #: [phone] EXAM DATE: 05/04/2021 STATUS: REG ER FAX #: [phone] RAD NO: Page 2 Signed Report Patient Name: BRI CAMPBELL Unit No: [id number]: CPT CODE: [id number] US TRANSVAGINAL W/PELVIS 54314 <Continued> [facility] NAME: BRI CAMPBELL Radiology Department PHYS: Chelo Ramírez MD [address] : 11/1985 AGE: 35 SEX: F [place], [place] [address] LOC: F.ERS PHONE #: [phone] EXAM DATE: 05/04/2021 STATUS: REG ER FAX #: [phone] RAD NO: Page 3 Signed Report- DUP VEIN [id number] 08:04:00 [facility] : 1985 Sex: F Patient Name: BRI CAMPBELL Unit No: [id number] EXAMS: CPT CODE: [id number] DUP VEIN SAMANTHA [address] BILATERAL LOWER EXTREMITY DUPLEX VENOUS DOPPLER ULTRASOUND, [...] Orig Print D/T: S: 05/04/2020 (0807) [facility] NAME: BRI CAMPBELL Radiology Department PHYS: Magdalena Borrego MD [address] : 1985 AGE: 34 SEX: F [place] [address] LOC: ROMAIN A PHONE #: [phone] EXAM DATE: 05/04/2020 STATUS: ADM IN FAX #: [phone] RAD NO: Page 1 Signed Report Patient Name: BRI CAMPBELL Unit No: [id number] EXAMS: CPT CODE: [id number] DUP VEIN SAMANTHA [address] <Continued> [facility] NAME: BRI CAMPBELLSUNSET Radiology Department PHYS: Magdalena Borrego MD [address] : 1985 AGE: 34 SEX: F [place] [address] LOC: TANGELA4 A PHONE #: [phone] EXAM DATE: 05/04/2020 STATUS: ADM IN FAX #: [phone] RAD NO: Page 2 Signed ReportCBC W/AUTO [id number] 04:57:00 Test Item Value Reference Range Interpretation [...] NORMAL REQUIRED (test code = PLTMR) WBC [id number] 04:57:00 Test Item Value Reference Range Interpretation [...] NORMAL A code = PLTMORPH) CBC W/AUTO [id number] 04:56:00 Test Item Value Reference Range Interpretation [...] S CALLED TO code = PLT) ROSARIO ADKINS K & CONFIRMED? Y.BY FAdrianLAB.TM 0456Results verified by rep eat analysis IMMATURE PLATELET 8.4 % 0.0-10.8 N FRACTION (test code = IPF) MEAN PLATELET VOLUME 12.9 fl 9.1-12.7 H (test code = MPV) MANUAL DIFF REQUIRED YES (test code = MDIFF) RBC MORPHOLOGY REQUIRED NORMAL NORMAL (test code = RBCM) PLATELET MORPHOLOGY ABNORMAL NORMAL REQUIRED (test code = PLTMR) WBC [id number] 04:56:00 Test Item Value Reference Range Interpretation Comments SEGMENTED NEUTROPHILS (test code = SEG) % 56.5-79.4 LYMPHOCYTE (test code = LYMPH) % 20-40 CBC W/AUTO [id number] 04:56:00 Test Item Value Reference Range Interpretation [...] NORMAL REQUIRED (test code = PLTMR) WBC [id number] 04:56:00 Test Item Value Reference Range Interpretation Comments SEGMENTED NEUTROPHILS (test code = SEG) % 56.5-79.4 LYMPHOCYTE (test code = LYMPH) % 20-40 COMPREHENSIVE METABOLIC [id number] 04:39:00 Test Item Value Reference Range Interpretation [...] 46-116 N code = ALKP) CBC W/AUTO [id number] 19:13:00 Test Item Value Reference Range Interpretation Comments WHITE BLOOD CELL 5.9 K/mm3 6.6-12.1 L (test code = WBC) RED BLOOD CELL (test 2.60 M/mm3 3.45-5.01 L code = RBC) HEMOGLOBIN (test 6.9 g/dL 10.7-13.9 L RESULTS FERMIN IFIED BY code = HGB) REPEAT ANALYSIS RESULTS CALLED TO GIANNA VERDUGOREAD BACK & CONFIRME D? Y.BY F.[facility] 05/03. HEMATOCRIT (test 22.1 % 32.1-42.1 [...] PLT) SUREKHA.READ BA CK & CONFIRMED? Y.BY F.LAB.[facility] 05/03 IMMATURE PLATELET 6.4 % 0.0-10.8 [...] REQUIRED (test code PRESENT = PLTMR) LACTIC [id number] 19:05:00 Test Item Value Reference Range Interpretation Comments LACTIC ACID (test 4.5 MMOL/L 0.5-2.2 HH RESULTS CA LLED TO code = LACT) MARIBEL.READ BACK & CONFIRMED? YES. BY Glen[place]04 04/17. COMPREHENSIVE METABOLIC [id number] 19:01:00 Test Item Value Reference Range Interpretation [...] 60 units/L 46-116 code = ALKP) PROTHROMBIN [id number] 19:01:00 Test Item Value Reference Range Interpretation Comments PROTHROMBIN TIME PATIENT (test code 13.3 secs 10.4-12.4 H = PTP) THROMBOPLASTIN TIME [id number] 19:01:00 Test Item Value Reference Range Interpretation Comments THROMBOPLASTIN TIME PARTIAL (test 20.6 secs 22-38 L code = PTT) [id number] 19:01:00 Test Item Value Reference Range Interpretation Comments FIBRINOGEN (test code = FIB) 141 mg/dL 309-518 L UA RFLX MICR CULT IF [id number] 12:47:00 Test Item Value Reference Range Interpretation [...] RiskForSepsis-no oth srcSpecimen Description: CLEAN CATCHUR HCG [id number] 12:47:00 Test Item Value Reference Range Interpretation [...] Description: CLEAN CATCHUA RFLX MICR CULT IF [id number] 12:36:00 Test Item Value Reference Range Interpretation [...] RiskForSepsis-no oth srcSpecimen Description: CLEAN CATCHUR HCG [id number] 12:36:00 Test Item Value Reference Range Interpretation [...] culture: RiskForSepsis-no oth srcSpecimen Description: CLEAN CATCHPROTHROMBIN [id number] 10:14:00 Test Item Value Reference Range Interpretation Comments PROTHROMBIN TIME PATIENT (test code 13.3 secs 10.4-12.4 H = PTP) THROMBOPLASTIN TIME [id number] 10:14:00 Test Item Value Reference Range Interpretation Comments THROMBOPLASTIN TIME PARTIAL (test 19.4 secs 22-38 L code = PTT) [id number] 10:14:00 Test Item Value Reference Range Interpretation Comments FIBRINOGEN (test code = FIB) 102 mg/dL 309-518 L COMPREHENSIVE METABOLIC [id number] 09:54:00 Test Item Value Reference Range Interpretation [...] units/L 46-116 N code = ALKP) HGB [id number] 06:49:00 Test Item Value Reference Range Interpretation [...] reviewed this study and agree with the abovereport.[facility] CenterProtein CREAT Ratio Urine [id number] 06:35:00 Test Item Value Reference Range Interpretation Comments T. PROT U (test code = 2888-6) 11 mg/dL CREAT U (test code = 2325320239) 153.3 mg/dL Protein/Creatinine Ratio Urine 0.0-2.0 (test code = 6774737251) [facility] CenterUric Acid [id number] 05:37:00 Test Item Value Reference Range Interpretation Comments URIC ACID (test code = 5113637372) 8.2 mg/dL 2.9-6 H Lab Interpretation (test code = Abnormal 91950-5) [facility] CenterAlanine Amino Transferase (SGPT)2019-01-01 05:37:00 Test Item Value Reference Range Interpretation Comments ALT(SGPT) (test code = 3077281411) 21 U/L 9-51 Lab Interpretation (test code = Normal 00238-4) [facility] CenterLactate [id number] 05:37:00 Test Item Value Reference Range Interpretation Comments LDH (test code = 2594972330) 781 U/L 300-600 H Lab Interpretation (test code = Abnormal 34409-3) [facility] CenterSerum [id number] 05:25:00 Test Item Value Reference Range Interpretation Comments CREATININE (test code 0.62 mg/dL 0.5-1.04 = 5395012012) eGFR Calculation mL/min/1.73m2 (Non-) (test code = 5374463207) eGFR Calculation mL/min/1.73m2 () (test code = 3624674260) MICKY (test code = MICKY) Association of [...] or urine or abnormalities in imaging tests). [facility] CenterSGOT (Asparate Amino Transfer)2019-01-01 05:25:00 Test Item Value Reference Range Interpretation Comments AST(SGOT) (test code = 7396136308) 30 U/L 13-40 Lab Interpretation (test code = Normal 56426-2) [facility] CenterUrinalysis2019-09-17 04:46:00 Test Item Value Reference Range Interpretation Comments APPEARANCE (test code = Clear Clear 0770792575) COLOR (test code = Yellow Yellow [id number]) PH (test code = 4.8-8.0 1496735226) SP GRAVITY (test code = 1.003-1.030 1534362831) GLU U QUAL (test code = Normal Normal 4866199282) BLOOD (test code = Negative Negative 5904433819) KETONES (test code = Negative Negative 7689333317) PROTEIN (test code = Negative Negative 2887-8) UROBILIN (test code = Normal Normal 3816638560) BILIRUBIN (test code = Negative Negative 7601960554) NITRITE (test code = Negative Negative 0545692253) LEUK MISBAH (test code = Negative Negative 8147411587) RBC/HPF (test code = See_Comment [Autom ated message] [id number]) The system [employer] generated this result transmitted ref erence range: 0 - 3 HP F. The reference range was not used to int erpret this result as normal/abnormal . WBC/HPF (test code = See_Comment [Autom ated message] [id number]) The system [employer] generated this result transmitted ref erence range: 0 - 5 HP F. The reference range was not used to int erpret this result as normal/abnormal . BACTERIA (test code = Negative Negative 1549074106) MUCOUS (test code = Slight Negative LPF A 5413019004) SQ EPITH (test code = See_Comment H [Auto mated message] [id number]) The system [employer] generated this result transmitted ref erence range: <=2 HPF. The reference range was not used to int erpret this result as normal/abnormal . HYAL CAST (test code = See_Comment H [Aut omated message] 8812619412) The system [employer] generated this result transmitted ref erence range: <=2 LPF. The reference range was not used to int erpret this result as normal/abnormal . Lab Interpretation (test Abnormal code = 94799-0) [facility] WITH [id number] 04:31:00 Test Item Value Reference Range Interpretation Comments WBC (test code = See_Comment [Automated 9590-2) message] The sy stem which generated this [...] (test code = 50.6 fL 39-49.9 H 54107-1) RDW-CV (test code = 14.8 % 12-15.5 788-0) PLT (test code = See_Comment [Automated 777-3) message] The sy stem which generated this result transmitted reference range : 166 - 358 10*3/ ?L. The reference r susan was not used to interpret this result as normal/abnormal . MPV (test code = 10.6 fL 9.5-12.9 00878-1) NRBC/100 WBC (test See_Comment [Automat ed code = 1082489638) message] The system which generated this result transmitted reference range : 0.0 - 10.0 /100 WBCs. The refer ence range was not u sed to interpret th is result as normal/abnormal . NRBC x10^3 (test code <0.01 See_Comment [Auto mated = 7821050662) message] The s ystem which generated this result transmitted reference range : 10*3/?L. The reference range was not used to interpret this result as normal/abnormal . GRAN MAT (NEUT) % 60.1 % (test code = 770-8) IMM GRAN % (test code 0.70 % = 9895728088) LYMPH % (test code = 18.1 % 736-9) MONO % (test code = 6.1 % 5905-5) EOS % (test code = 14.3 % 713-8) BASO % (test code = 0.7 % 706-2) GRAN MAT x10^3(ANC) 5.24 10*3/uL 1.88-7.09 (test code = 1091151536) IMM GRAN x10^3 (test 0.06 10*3/uL 0-0.06 code = 8212093392) LYMPH x10^3 (test code 1.58 10*3/uL 1.32-3.29 = 731-0) MONO x10^3 (test code 0.53 10*3/uL 0.33-0.92 = 742-7) EOS x10^3 (test code = 1.25 10*3/uL 0.03-0.39 H 711-2) BASO x10^3 (test code 0.06 10*3/uL 0.01-0.07 = 704-7) Lab Interpretation Abnormal (test code = 37928-8) [facility]IFIC [id number] 20:25:00 Test Item Value Reference Range Interpretation [...] POCT U APPEAR (test code = 3267) [facility] [id number] 02:52:00 Test Item Value Reference Range Interpretation Comments NT-proBNP (test code 423 pg/mL See_Comment H [Autom ated = 8310840109) message] The system which generated this result transmitted reference range : <=125. The reference range was not used to interpret this result as normal/abnormal . MICKY (test code = MICKY) Biotin has been reported to cause a negative bias, interpret results relative to patient's use of biotin. Lab Interpretation Abnormal (test code = 39652-3) [facility]. METABOLIC PANEL (52294)2018-12-29 02:44:00 Test Item Value Reference Range Interpretation Comments NA (test code = 141 mmol/L 135-145 7534733072) K (test code = 3.8 mmol/L 3.5-5 4284336358) CL (test code = 110 mmol/L 98-108 H 8555673063) CO2 TOTAL (test code = 23 mmol/L 23-31 1923364175) AGAP (test code = 2-16 6780878424) BUN (test code = 12 mg/dL 7-23 5640598966) GLUCOSE (test code = 103 mg/dL 70-110 9109975747) CREATININE (test code = 0.50 mg/dL 0.5-1.04 8554794280) TOTAL BILI (test code = 0.6 mg/dL 0.1-1.7 7996718556) CALCIUM (test code = 8.9 mg/dL 8.6-10.6 5391771432) T PROTEIN (test code = 6.8 g/dL 6.3-8.2 8089253273) ALBUMIN (test code = 3.5 g/dL 3.5-5 1740288206) ALK PHOS (test code = 86 U/L 34-122 3589913656) ALT(SGPT) (test code = 19 U/L 9-51 4659504065) AST(SGOT) (test code = 29 U/L 13-40 2587017335) eGFR Calculation mL/min/1.73m2 (Non-) (test code = 8907285747) eGFR Calculation mL/min/1.73m2 () (test code = 1446813161) MICKY (test code = MICKY) Association of [...] tests). Lab Interpretation Abnormal (test code = 59027-0) [facility] 02:44:00 Test Item Value Reference Range Interpretation Comments LIPASE (test code = 2621736194) 89 U/L 0-220 Lab Interpretation (test code = Normal 64614-8) [facility]UM2019-[facility]-14 02:44:00 Test Item Value Reference Range Interpretation Comments MAGNESIUM (test code = 6737968991) 1.5 mg/dL 1.7-2.4 L Lab Interpretation (test code = Abnormal 85891-9) [facility] CenterPROTHROMBIN TIME / [id number] 02:40:00 Test Item Value Reference Range Interpretation Comments PROTIME PATIENT (test See_Comment [Auto mated message] code = 5964-2) The system [employer] generated this result transmitted ref erence range: 12.0 - 1 4.7 Seconds. The re ference range was not u sed to interpret this result as normal/abnor mal. INR (test code = 6301-6) Nor mal INR <1.1; Warfarin Therap eutic range 2.0 to 3. 0 or 2.5 to 3.5, dep ending upon the indica tions. Lab Interpretation (test Normal code = 40566-1) [facility] 02:37:00 Test Item Value Reference Range Interpretation Comments APPEARANCE (test code = Cloudy Clear A 1696382347) COLOR (test code = Laura Yellow A 4928188549) PH (test code = 4.8-8.0 3395005295) SP GRAVITY (test code = 1.003-1.030 9845740937) GLU U QUAL (test code = Normal Normal 5511062782) BLOOD (test code = 3+ Negative A 4613008944) KETONES (test code = Negative Negative 3086537594) PROTEIN (test code = 100 mg/dL Negative A 2887-8) UROBILIN (test code = 4.0 mg/dL Normal A 1268466888) BILIRUBIN (test code = Negative Negative 6881575038) NITRITE (test code = Negative Negative 5299248836) LEUK MISBAH (test code = 75/uL Negative A 7428525263) RBC/HPF (test code = See_Comment H [Autom ated message] 6763915065) The system [employer] generated this result transmit ramana reference range : 0 - 3 HPF. The refe rence range was not u sed to interpret th is result as normal/abnormal . WBC/HPF (test code = See_Comment H [Autom ated message] 1728731457) The system [employer] generated this result transmit ramana reference range : 0 - 5 HPF. The refe rence range was not u sed to interpret th is result as normal/abnormal . BACTERIA (test code = Moderate Negative A 7634857065) MUCOUS (test code = Marked Negative LPF A 8909142869) SQ EPITH (test code = HPF 4394946381) YEAST BUD (test code = See_Comment H [Aut omated message] 6098640763) The system [employer] generated this result transmit ramana reference range : <=1 HPF. The refere nce range was not u sed to interpret th is result as normal/abnormal . ROSSI EPITH (test code = See_Comment [Aut omated message] 9628433387) The system [employer] generated this result transmit ramana reference range : <=1 HPF. The refere nce range was not u sed to interpret th is result as normal/abnormal . Lab Interpretation (test Abnormal code = 22058-6) [facility] WITH [id number] 02:09:00 Test Item Value Reference Range Interpretation [...] (test code = 52.4 fL 39-49.9 H 84833-9) RDW-CV (test code = 15.3 % 12-15.5 788-0) PLT (test code = See_Comment L [Automated 777-3) message] The sy stem which generated this result transmitted reference range : 166 - 358 10*3/ ?L. The reference r susan was not used to interpret this result as normal/abnormal . MPV (test code = 11.3 fL 9.5-12.9 38058-8) NRBC/100 WBC (test See_Comment [Automat ed code = 7840922696) message] The system which generated this result transmitted reference range : 0.0 - 10.0 /100 WBCs. The refer ence range was not u sed to interpret th is result as normal/abnormal . NRBC x10^3 (test code See_Comment [Auto mated = 3328181313) message] The s ystem which generated this result transmitted reference range : 10*3/?L. The reference range was not used to interpret this result as normal/abnormal . GRAN MAT (NEUT) % 70.5 % (test code = 770-8) IMM GRAN % (test code 0.80 % = 6326560515) LYMPH % (test code = 16.6 % 736-9) MONO % (test code = 6.0 % 5905-5) EOS % (test code = 5.8 % 713-8) BASO % (test code = 0.3 % 706-2) GRAN MAT x10^3(ANC) 5.46 10*3/uL 1.88-7.09 (test code = 2834891046) IMM GRAN x10^3 (test 0.06 10*3/uL 0-0.06 code = 3758236334) LYMPH x10^3 (test code 1.28 10*3/uL 1.32-3.29 L = 731-0) MONO x10^3 (test code 0.46 10*3/uL 0.33-0.92 = 742-7) EOS x10^3 (test code = 0.45 10*3/uL 0.03-0.39 H 711-2) BASO x10^3 (test code <0.03 0.01-0.07 = 704-7) Lab Interpretation Abnormal (test code = 68571-2) [facility] SPECIFIC [id number] 18:54:00 Test Item Value Reference Range Interpretation [...] U APPEAR (test code = 3267) * [facility] CenterRHO (D) IMMUNE [id number] 12:40:02 Test Item Value Reference Range Interpretation Comments RHIG CANDIDATE? No- see comment Patient i s not a (test code = candidate for R hIg- 5055) Patient is Rh Positive.Perfor med at [facility] Laboratory Services - [facility] Blood [address] [place] [address]Qohg Free: [phone] A No. [id number] [facility] WITH [id number] 09:27:00 Test Item Value Reference Range Interpretation [...] (test code = 52.0 fL 39-49.9 H 89860-8) RDW-CV (test code = 15.2 % 12-15.5 788-0) PLT (test code = See_Comment L [Automated 777-3) message] The sy stem which generated this result transmitted reference range : 166 - 358 10*3/ ?L. The reference r susan was not used to interpret this result as normal/abnormal . MPV (test code = 10.8 fL 9.5-12.9 55213-6) NRBC/100 WBC (test See_Comment [Automat ed code = 5905928592) message] The system which generated this result transmitted reference range : 0.0 - 10.0 /100 WBCs. The refer ence range was not u sed to interpret th is result as normal/abnormal . NRBC x10^3 (test code <0.01 See_Comment [Auto mated = 4026303160) message] The s ystem which generated this result transmitted reference range : 10*3/?L. The reference range was not used to interpret this result as normal/abnormal . GRAN MAT (NEUT) % 73.9 % (test code = 770-8) IMM GRAN % (test code 0.50 % = 5184844079) LYMPH % (test code = 15.2 % 736-9) MONO % (test code = 7.2 % 5905-5) EOS % (test code = 3.1 % 713-8) BASO % (test code = 0.1 % 706-2) GRAN MAT x10^3(ANC) 5.65 10*3/uL 1.88-7.09 (test code = 3590454189) IMM GRAN x10^3 (test 0.04 10*3/uL 0-0.06 code = 4922928284) LYMPH x10^3 (test code 1.16 10*3/uL 1.32-3.29 L = 731-0) MONO x10^3 (test code 0.55 10*3/uL 0.33-0.92 = 742-7) EOS x10^3 (test code = 0.24 10*3/uL 0.03-0.39 711-2) BASO x10^3 (test code <0.03 0.01-0.07 = 704-7) Lab Interpretation Abnormal (test code = 48239-9) [facility] WITH [id number] 16:03:00 Test Item Value Reference Range Interpretation [...] RDW-SD (test code = 49.8 fL 39-49.9 76412-0) RDW-CV (test code = 15.0 % 12-15.5 788-0) PLT (test code = See_Comment L [Automated 777-3) message] The sy stem which generated this result transmitted reference range : 166 - 358 10*3/ ?L. The reference r susan was not used to interpret this result as normal/abnormal . MPV (test code = 11.2 fL 9.5-12.9 19153-7) NRBC/100 WBC (test See_Comment [Automat ed code = 8818738948) message] The system which generated this result transmitted reference range : 0.0 - 10.0 /100 WBCs. The refer ence range was not u sed to interpret th is result as normal/abnormal . NRBC x10^3 (test code <0.01 See_Comment [Auto mated = 7357529898) message] The s ystem which generated this result transmitted reference range : 10*3/?L. The reference range was not used to interpret this result as normal/abnormal . GRAN MAT (NEUT) % 85.8 % (test code = 770-8) IMM GRAN % (test code 1.10 % = 7193201245) LYMPH % (test code = 6.5 % 736-9) MONO % (test code = 5.1 % 5905-5) EOS % (test code = 1.3 % 713-8) BASO % (test code = 0.2 % 706-2) GRAN MAT x10^3(ANC) 9.20 10*3/uL 1.88-7.09 H (test code = 4292899619) IMM GRAN x10^3 (test 0.12 10*3/uL 0-0.06 H code = 8486369066) LYMPH x10^3 (test code 0.70 10*3/uL 1.32-3.29 L = 731-0) MONO x10^3 (test code 0.55 10*3/uL 0.33-0.92 = 742-7) EOS x10^3 (test code = 0.14 10*3/uL 0.03-0.39 711-2) BASO x10^3 (test code <0.03 0.01-0.07 = 704-7) Lab Interpretation Abnormal (test code = 08383-2) [facility] ON A CART THROMBELASTOGRAPH CITRATED KAOLIN W/[id number] 21:35:00 Test Item Value Reference Range Interpretation Comments R (test code = 4213984258) 6.8 min 5-10 TEG K (test code = 9815878729) 5.2 min 1-3 H Angle (test code = 5147042748) 39.4 deg 53-72 L MA (test code = 6163666258) 35.7 min 50-70 L Lab Interpretation (test code = Abnormal 85458-9) [facility] ON A CART THROMBELASTOGRAPH CITRATED [id number] 16:23:00 Test Item Value Reference Range Interpretation Comments R (test code = 1694059340) 5.9 min 5-10 TEG K (test code = 4967891817) 4.9 min 1-3 H Angle (test code = 8244505818) 44.5 deg 53-72 L MA (test code = 9505669541) 38.7 min 50-70 L Lab Interpretation (test code = Abnormal 68148-1) [facility] WITH [id number] 16:16:00 Test Item Value Reference Range Interpretation Comments WBC (test code = See_Comment [Automated 2390-2) message] The sy stem which generated this result transmitted reference range : 4.30 - 11.10 10*3/?L. The reference range was not used to interpret this result as normal/abnormal . RBC (test code = See_Comment L [Automated 428-8) message] The sy stem which generated this [...] (test code = 50.5 fL 39-49.9 H 13007-6) RDW-CV (test code = 15.1 % 12-15.5 788-0) PLT (test code = See_Comment L [Automated 777-3) message] The sy stem which generated this result transmitted reference range : 166 - 358 10*3/ ?L. The reference r susan was not used to interpret this result as normal/abnormal . MPV (test code = 10.5 fL 9.5-12.9 53790-2) NRBC/100 WBC (test See_Comment [Automat ed code = 5408191695) message] The system which generated this result transmitted reference range : 0.0 - 10.0 /100 WBCs. The refer ence range was not u sed to interpret th is result as normal/abnormal . NRBC x10^3 (test code <0.01 See_Comment [Auto mated = 9348275030) message] The s ystem which generated this result transmitted reference range : 10*3/?L. The reference range was not used to interpret this result as normal/abnormal . GRAN MAT (NEUT) % 73.2 % (test code = 770-8) IMM GRAN % (test code 0.80 % = 7346702859) LYMPH % (test code = 20.1 % 736-9) MONO % (test code = 4.9 % 5905-5) EOS % (test code = 0.9 % 713-8) BASO % (test code = 0.1 % 706-2) GRAN MAT x10^3(ANC) 7.42 10*3/uL 1.88-7.09 H (test code = 6106953554) IMM GRAN x10^3 (test 0.08 10*3/uL 0-0.06 H code = 1102953526) LYMPH x10^3 (test code 2.04 10*3/uL 1.32-3.29 = 731-0) MONO x10^3 (test code 0.50 10*3/uL 0.33-0.92 = 742-7) EOS x10^3 (test code = 0.09 10*3/uL 0.03-0.39 711-2) BASO x10^3 (test code <0.03 0.01-0.07 = 704-7) Lab Interpretation Abnormal (test code = 64598-3) [facility] [id number] 16:09:00 Test Item Value Reference Range Interpretation Comments BASE EXCESS, CORD mEq/L (test code = 5397550428) AC PH, CORD (BEAKER) 7.18-7.38 (test code = 7009701500) PC02, CORD (test code See_Comment [Auto mated message] The = 8333429593) system which g enerated this result transmit ramana reference range : 32 - 66 mmHg. The refer ence range was not used to interpret this result as normal/abnormal . PO2, CORD (test code See_Comment [Autom ated message] The = 8722224744) system which g enerated this result transmit ramana reference range : 10 - 30 mmHg. The refer ence range was not used to interpret this result as normal/abnormal . BICARBONATE, CORD See_Comment [Automate d message] The (test code = system which ge nerated this 2890034005) result transmit ramana reference range : 17 - 27 mEq/L. The refe rence range was not used to interpret this result as normal/abnormal . [facility] CenterVENOUS CORD [id number] 16:07:00 Test Item Value Reference Range Interpretation Comments VENOUS BASE EXCESS, CORD mEq/L (test code = 1808531988) VENOUS PH, CORD (test 7.25-7.45 code = 6137302899) VENOUS PC02, CORD (test See_Comment [Au tomated message] code = 7008739207) The syste m which generated this result transmitted ref erence range: 27 - 49 mmHg. The reference r susan was not used to interpret this result as normal/abnor mal. VENOUS PO2, CORD (test See_Comment H [Aut omated message] code = 5057733224) The syste m which generated this result transmitted ref erence range: 17 - 41 mmHg. The reference r susan was not used to interpret this result as normal/abnor mal. VENOUS BICARBONATE, CORD See_Comment [A utomated message] (test code = 6960913474) The system which generated this result transmitted ref erence range: 12 - 29 mEq/L. The reference r susan was not used to interpret this result as normal/abnor mal. Lab Interpretation (test Abnormal code = 77223-7) [facility] Center[facility] - SYPHILIS [id number] 14:12:00 Test Item Value Reference Range Interpretation Comments Syphilis IgG/IgM (test Non-reactive Non-reactive code = 39541-9) MICKY (test code = MICKY) Non-reactive - No serologic evidence of T. pallidum infection. Cannot exclude incubating or early syphilis. Submit a second specimen in 2-4 weeks if syphilis is clinically suspected.Equivocal - Further testing to follow.Reactive - Further testing to follow. Lab Interpretation (test Normal code = 73487-2) [facility] Platelets (in units): 1 Units~Indication: 4) Evidence of platelet dysfunction and no response to DDAVP or cryoprecipitate with active hemorrhage or at risk for [id number] 13:34:52 Test Item Value Reference Range Interpretation Comments Unit Blood Type (test O Pos code = 4410) ISBT Blood Type Code (test code = 900965) Unit Number (test code [id number] = 4411) Blood Expiration Date & Time (test code = 379961) Status Information Issued (test code = 4412) Product Identification Platelets (test code = 4413) Product Code (test [id number] Performed at [facility] code = 4414) Laboratory Services [facility] Blood [address] [address]Vkxt Free: [phone] A No. [id number] [facility] Platelets (in units): 1 Units~Indication: 1) Platelets < 10,000 for bleeding ucibbaklnrd7560-73-11 13:34:51 Test Item Value Reference Range Interpretation Comments Unit Blood Type (test O Pos code = 4410) ISBT Blood Type Code (test code = 733859) Unit Number (test code [id number] = 4411) Blood Expiration Date & Time (test code = 440348) Status Information Issued (test code = 4412) Product Identification Platelets (test code = 4413) Product Code (test [id number] Performed at [facility] code = 4414) Laboratory Services - [facility] Blood [address] [address]Etdl Free: [phone] A No. [id number] [facility] CenterHepatitis B Surface [id number] 05:55:00 Test Item Value Reference Range Interpretation Comments HBsAg Semi-Quantitative (test code = 5195-3) [facility] CenterType and Screen - ONCE [id number] 04:09:59 Test Item Value Reference Range Interpretation Comments ABO & RH (test code A POSITIVE Performe d at [facility] = 20) Laboratory Serv [facility] Blood Bank[address] [facility] [address]Xcww Free: [phone] A No. [id number] IAT (test code = Negative Performed a t [facility] 1185) Laboratory Serv [facility] Blood [facility] [address] [facility] [place] [address]Mkeg Free: [phone] A No. [id number] [facility] CenterCBC WITH [id number] 04:09:00 Test Item Value Reference Range Interpretation Comments WBC (test code = See_Comment [Automated 6690-2) message] The sy stem which generated this result transmitted reference range : 4.30 - 11.10 10*3/?L. The reference range was not used to interpret this result as normal/abnormal . RBC (test code = See_Comment L [Automated 159-8) message] The sy stem which generated this [...] (test code = 50.7 fL 39-49.9 H 86391-5) RDW-CV (test code = 14.9 % 12-15.5 788-0) PLT (test code = See_Comment L [Automated 777-3) message] The sy stem which generated this result transmitted reference range : 166 - 358 10*3/ ?L. The reference r susan was not used to interpret this result as normal/abnormal . MPV (test code = 11.0 fL 9.5-12.9 80166-8) NRBC/100 WBC (test See_Comment [Automat ed code = 7989104950) message] The system which generated this result transmitted reference range : 0.0 - 10.0 /100 WBCs. The refer ence range was not u sed to interpret th is result as normal/abnormal . NRBC x10^3 (test code <0.01 See_Comment [Auto mated = 7289344899) message] The s ystem which generated this result transmitted reference range : 10*3/?L. The reference range was not used to interpret this result as normal/abnormal . GRAN MAT (NEUT) % 76.1 % (test code = 770-8) IMM GRAN % (test code 0.40 % = 1808441569) LYMPH % (test code = 16.3 % 736-9) MONO % (test code = 6.2 % 5905-5) EOS % (test code = 0.8 % 713-8) BASO % (test code = 0.2 % 706-2) GRAN MAT x10^3(ANC) 7.93 10*3/uL 1.88-7.09 H (test code = 8434094962) IMM GRAN x10^3 (test 0.04 10*3/uL 0-0.06 code = 9830236830) LYMPH x10^3 (test code 1.69 10*3/uL 1.32-3.29 = 731-0) MONO x10^3 (test code 0.64 10*3/uL 0.33-0.92 = 742-7) EOS x10^3 (test code = 0.08 10*3/uL 0.03-0.39 711-2) BASO x10^3 (test code <0.03 0.01-0.07 = 704-7) Lab Interpretation Abnormal (test code = 24574-3) [facility] CenterFETAL NON-STRESS [id number] 16:13:01Cat I [facility] URINALYSIS W SPECIFIC [id number] 15:39:00 Test Item Value Reference Range Interpretation [...] POCT U APPEAR (test code = 3267) [facility] NON-STRESS [id number] 19:32:31 [facility] SPECIFIC GRAVITY 2018-12-18 18:02:00 [...] POCT U APPEAR (test code = 3267) [facility] NON-STRESS [id number] 19:37:16NST NOTE12/13/2018 2:28 PM GA: 36w4d Baseline: 130sVariability: ModerateAccels: +Decels: NoneToco: Quiescent Assessment: Reactive and reassuringPlan: Repeat as scheduledUnDeTar Healthcare SystemFETAL NON-STRESS [id number] 16:54:14NST reviewed, FHR 140s, moderate variability noted, category I, no contractions.[facility] CenterPOWV URINAL[facility] W SPECIFIC [id number] 15:45:00 Test Item Value Reference Range Interpretation [...] POCT U APPEAR (test code = 3267) [facility] CenterGROUP B STREPTOCOCCUS BY [id number] 15:17:00 Test Item Value Reference Range Interpretation Comments Group B Streptococcus by PCR (test Negative Negative code = 85494-3) Lab Interpretation (test code = Normal 52761-4) [facility] WITH [id number] 06:28:00 Test Item Value Reference Range Interpretation Comments WBC (test code = See_Comment [Automated 8799-2) message] The sy stem which generated this result transmitted reference range : 4.30 - 11.10 10*3/?L. The reference range was not used to interpret this result as normal/abnormal . RBC (test code = See_Comment L [Automated 641-8) message] The sy stem which generated this [...] (test code = 54.0 fL 39-49.9 H 32827-4) RDW-CV (test code = 15.9 % 12-15.5 H 788-0) PLT (test code = See_Comment L [Automated 777-3) message] The sy stem which generated this result transmitted reference range : 166 - 358 10*3/ ?L. The reference r susan was not used to interpret this result as normal/abnormal . MPV (test code = 11.6 fL 9.5-12.9 41311-4) IPF % (test code = 5.3 % 1.3-7.7 Platelet count [id number]) measured by fluorescence method. NRBC/100 WBC (test See_Comment [Automat ed code = 5212853727) message] The system which generated this result transmitted reference range : 0.0 - 10.0 /100 WBCs. The refer ence range was not u sed to interpret th is result as normal/abnormal . NRBC x10^3 (test code <0.01 See_Comment [Auto mated = 1756136509) message] The s ystem which generated this result transmitted reference range : 10*3/?L. The reference range was not used to interpret this result as normal/abnormal . GRAN MAT (NEUT) % 80.4 % (test code = 770-8) IMM GRAN % (test code 0.40 % = 8926723645) LYMPH % (test code = 12.4 % 736-9) MONO % (test code = 5.6 % 5905-5) EOS % (test code = 1.0 % 713-8) BASO % (test code = 0.2 % 706-2) GRAN MAT x10^3(ANC) 6.55 10*3/uL 1.88-7.09 (test code = 9954269640) IMM GRAN x10^3 (test 0.03 10*3/uL 0-0.06 code = 0640729818) LYMPH x10^3 (test code 1.01 10*3/uL 1.32-3.29 L = 731-0) MONO x10^3 (test code 0.46 10*3/uL 0.33-0.92 = 742-7) EOS x10^3 (test code = 0.08 10*3/uL 0.03-0.39 711-2) BASO x10^3 (test code <0.03 0.01-0.07 = 704-7) Lab Interpretation Abnormal (test code = 64191-3) [facility] NON-STRESS [id number] 21:11:11NST reactive and reassuring, 1 [facility] [id number] 15:35:00 Test Item Value Reference Range Interpretation [...] POCT U APPEAR (test code = 3267) [facility] NON-STRESS [id number] 18:37:51Cat I [facility] NON-STRESS [id number] 18:37:51Cat I [facility] NON-STRESS [id number] 18:37:51Cat I [facility] URINALYSIS W SPECIFIC [id number] 17:59:00 Test Item Value Reference Range Interpretation [...] POCT U APPEAR (test code = 3267) [facility] URINALYSIS W SPECIFIC [id number] 17:59:00 Test Item Value Reference Range Interpretation [...] PO[facility] U APPEAR (test code = 3267) [facility] [id number] 17:59:00 Test Item Value Reference Range Interpretation [...] POCT U APPEAR (test code = 3267) [facility] NON-STRESS [id number] 17:50:16 [facility] SPECIFIC [id number] 15:21:00 Test Item Value Reference Range Interpretation [...] POCT U APPEAR (test code = 3267) [facility] NON-STRESS [id number] 14:37:24Cat 1 NST reactive, [facility] SPECIFIC [id number] 13:15:00 Test Item Value Reference Range Interpretation [...] POCT U APPEAR (test code = 3267) [facility] NON-STRESS [id number] 14:57:43 nonreactive NST with spontaneous decels to 100s from baseline. Will send to LD for prolonged monitoring.[facility] NON-STRESS TEST 2018-11-19 14:57:43nonreactive NST with spontaneous decels to 100s from baseline. Will send to LD for prolonged monitoring.[facility] NON-STRESS [id number] 14:57:43nonreactive NST with spontaneous decels to 100s from baseline. Will send to LD for prolonged monitoring. [facility] URINALYSIS W SPECIFIC [id number] 14:30:00 Test Item Value Reference Range Interpretation [...] POCT U APPEAR (test code = 3267) [facility] [id number] 14:30:00 Test Item Value Reference Range Interpretation [...] POCT U APPEAR (test code = 3267) [facility] [id number] 14:30:00 Test Item Value Reference Range Interpretation [...] POCT U APPEAR (test code = 3267) [facility] [id number] 20:17:18NON STRESS TEST INTERPRETATIONDate: 11/15/2018 15:16 Bri [...] NST 2x Leroy De La Rosa MD #[id number] 3:16 PM?[facility] [id number] 20:17:18NON STRESS TEST INTERPRETATIONDate: 11/15/2018 15:16 Bri [...] NST 2x Leroy De La Rosa MD #[id number] 3:16 PM?[facility] [id number] 19:32:00 Test Item Value Reference Range Interpretation [...] POCT U APPEAR (test code = 3267) [facility] URINALYSIS W SPECIFIC [id number] 19:32:00 Test Item Value Reference Range Interpretation [...] POCT U APPEAR (test code = 3267) [facility] [id number] 17:13:56 Reactive and reassuringUnBo[facility] UR[facility] W SPECIFIC [id number] 15:56:00 Test Item Value Reference Range Interpretation [...] POCT U APPEAR (test code = 3267) [facility]
[2021-09-18] MEDS ORDERED: ONDANSETRON 4 MG/2 ML VIAL ONE (01:33)
[2021-09-18] MEDS ORDERED: NA CHLORIDE 0.9% 1,000 ML ONE (01:33)
[2021-09-18 02:54] LABS: Absolute Lymphocytes (CBC) 1.2 K/uL (0.7-4.9); Lymphocytes % 45.9 % (15.3-44.8); MPV 9.2 fL (7.6-11.3); RBC Red Blood Cell Count 1.62 M/uL (3.86-4.86)
[2021-09-18 02:56] LABS: Hematocrit 12.9 % (36.0-45.0)
--- NOTE | 2021-09-18 02:59 | ER ---
Nurse's Notes [facility] Name: Bri Boyd Age: 36 yrs Sex: Female : 1985 Arrival Date: 09/17/2021 Time: 23:05 Bed 16 Private MD: Diagnosis: Symptomatic anemia;Glanzmann's thrombasthenia Presentation: 09/18 00:39 Chief complaint: Patient states: she has a blood disorder has been having vaginal bb bleeding x 5 weeks and is having right sided abdominal pain since she had a biopsy. Coronavirus screen: At this time, the client does not indicate any symptoms associated with coronavirus-19. Ebola Screen: No symptoms or risks identified at this time. Initial Sepsis Screen: Does the patient meet any 2 criteria? No. Patient's initial sepsis screen is negative. Does the patient have a suspected source of infection? No. Patient's initial sepsis screen is negative. Risk Assessment: Do you want to hurt yourself or someone else? Patient reports no desire to harm self or others. Onset of symptoms is unknown. 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 - Social history:: Smoking status: Patient denies any tobacco usage or history of. Screenin:40 Abuse screen: Denies threats or abuse. Denies injuries from another. Nutritional as6 screening: No deficits noted. Tuberculosis screening: No symptoms or risk factors identified. Fall Risk None identified. Assessment: 01:50 General: Appears ill, Behavior is calm, cooperative. Pain: Complains of pain in as6 abdomen. Neuro: Level of Consciousness is lethargic, Oriented to person, place, time, situation. Cardiovascular: Patient's skin is warm and dry. Respiratory: Respiratory effort is even, unlabored, Respiratory pattern is regular, symmetrical. : Reports vaginal bleeding that is. Derm: Skin is pale. 03:37 General: assisted pt to bathrrom via WC. as6 04:30 Reassessment: Assumed care of patient from MCKENZIE Fletcher. vc1 05:30 Reassessment: Patient requested pain medication. Instructed patient that I am unable to vc1 administer the medication she is requesting at this time due to her blood pressure. 05:30 General: Appears ill, Behavior is flat, aggravated. vc1 05:30 Neuro: Zazueta Agitation-Sedation Scale (RASS): -1 Drowsy Level of Consciousness is vc1 lethargic, Oriented to person, place, time, situation, Weakness in left in right leg(s). Vital Signs: 00:39 BP 97 / 65; Pulse 79; Resp 16 S; Temp 97.9(O); Pulse Ox 100% on R/A; Weight 77.11 kg bb (R); Height 5 ft. 6 in. (167.64 cm) (R); Pain 8/10; 01:00 BP 108 / 41; Pulse 78; Resp 18 S; Pulse Ox 100% on R/A; as6 01:30 BP 96 / 60; Pulse 68; Resp 20 S; Pulse Ox 93% on R/A; as6 02:00 BP 87 / 61; Pulse 66; Resp 12 S; Pulse Ox 100% on R/A; as6 02:30 BP 93 / 49; Pulse 71; Resp 12 S; Pulse Ox 100% on R/A; as6 03:00 BP 91 / 54; Pulse 66; Resp 20 S; Pulse Ox 100% on R/A; as6 03:36 BP 96 / 62; Pulse 70; Resp 18 S; Pulse Ox 100% on R/A; as6 04:45 BP 94 / 58; Pulse 60; Resp 16; Pulse Ox 95% on R/A; vc1 05:30 BP 108 / 52; Pulse 60; Resp 18; Pulse Ox 97% on R/A; vc1 00:39 Body Mass Index 27.44 (77.11 kg, 167.64 cm) bb ED Course: 09/17 23:05 Patient arrived in ED. asim 23:10 Jonathan Chaves PA is PHCP. zuleyka 23:10 Klever Fox DO is Attending Physician. zuleyka 09/18 00:41 Triage completed. bb 00:42 Arm band placed on Patient placed in an exam room, on a stretcher, on pulse oximetry. bb 01:13 Chance Leary, RN is Primary Nurse. as6 02:39 Inserted saline lock: 18 gauge in left EJ, using aseptic technique. Blood collected. as6 02:40 Placed in gown. Bed in low position. Call light in reach. Side rails up X2. Client as6 placed on continuous cardiac and pulse oximetry monitoring. NIBP monitoring applied. 02:55 Notified ED physician of a critical lab result(s). hgb 3.9, hct 12.8, plt 88. Dr Dominique ren notified. 02:57 Mahesh Ramírez MD is Hospitalizing Provider. ms3 05:44 No provider procedures requiring assistance completed. Patient admitted, IV remains in vc1 place. Administered Medications: 02:41 Drug: NS 0.9% 1000 ml Route: IV; Rate: 1 bolus; Site: left jugular; as6 03:39 Follow up: Response: No adverse reaction; IV Status: Completed infusion; IV Intake: as6 1000ml 02:41 Drug: Zofran (Ondansetron) 4 mg Route: IVP; Site: left jugular; as6 03:39 Follow up: Response: No adverse reaction as6 Medication: 02:40 VIS not applicable for this client. as6 Intake: 03:39 IV: 1000ml; Total: 1000ml. as6 Outcome: 02:58 Decision to Hospitalize by Provider. ms3 05:44 Admitted to L \T\ D, accompanied by nurse, via wheelchair, room 270, Report called to vc1 MCKENZIE Swanson 05:44 Condition: good 05:44 Instructed on the need for admit. 05:48 Patient left the ED. vc1 Signatures: Jonathan Cahves PA PA jmm Ballard, Brenda, RN RN bb Klever Fox DO DO ms3 Johanny Berger kasia2 Chance Leary, MCKENZIE RN as6 Nancy Valero RN RN vc1 Corrections: (The following items were deleted from the chart) 00:43 00:42 PMHx: C Section; bb bb
--- NOTE | 2021-09-18 03:00 | EDPHYS ---
Physician Documentation [facility] Name: Bri Boyd Age: 36 yrs Sex: Female : 1985 Arrival Date: 09/17/2021 Time: 23:05 Bed 16 Private MD: ED Physician Klever Fox HPI: 09/18 04:46 This 36 yrs old Female presents to ER via Wheelchair with complaints of Abdominal ms3 Cramping, Low Blood Sugar. 04:47 The patient presents with vaginal bleeding that is moderate. Onset: The ms3 symptoms/episode began/occurred 4 week(s) ago. Modifying factors: The symptoms are alleviated by nothing, the symptoms are aggravated by nothing. Associated signs and symptoms: Pertinent positives: Shortness of breath. 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 - Social history:: Smoking status: Patient denies any tobacco usage or history of. ROS: 04:47 Constitutional: Negative for fever, and chills. Neck: Negative for injury, pain, and ms3 swelling, Cardiovascular: Negative for chest pain, and palpitations. Abdomen/GI: Negative for abdominal pain, nausea, vomiting, diarrhea, and constipation, MS/Extremity: Negative for injury and deformity, Skin: Negative for injury, rash, and discoloration. 04:47 Respiratory: Positive for shortness of breath, at rest. 04:47 : Positive for vaginal bleeding. 04:47 All other systems are negative. Exam: 04:47 Constitutional: This is a well developed, well nourished patient who is awake, alert, ms3 and in no acute distress. Eyes: Pupils equal round and reactive to light, extra-ocular motions intact. Lids and lashes normal. Conjunctiva and sclera are non-icteric and not injected. Periorbital areas with no swelling, redness, or edema. Chest/axilla: Normal chest wall appearance and motion. Nontender with no deformity. Cardiovascular: Regular rate and rhythm with a normal S1 and S2. No gallops, murmurs, or rubs. Normal PMI, no JVD. No pulse deficits. Respiratory: Lungs have equal breath sounds bilaterally, clear to auscultation and percussion. No rales, rhonchi or wheezes noted. No increased work of breathing, no retractions or nasal flaring. Abdomen/GI: Soft, non-tender, with normal bowel sounds. No distension or tympany. No guarding or rebound. No evidence of tenderness throughout. MS/ Extremity: Pulses equal, no cyanosis. Neurovascular intact. Full, normal range of motion. 04:47 Skin: Pale. Vital Signs: 00:39 BP 97 / 65; Pulse 79; Resp 16 S; Temp 97.9(O); Pulse Ox 100% on R/A; Weight 77.11 kg bb (R); Height 5 ft. 6 in. (167.64 cm) (R); Pain 8/10; 01:00 BP 108 / 41; Pulse 78; Resp 18 S; Pulse Ox 100% on R/A; as6 01:30 BP 96 / 60; Pulse 68; Resp 20 S; Pulse Ox 93% on R/A; as6 02:00 BP 87 / 61; Pulse 66; Resp 12 S; Pulse Ox 100% on R/A; as6 02:30 BP 93 / 49; Pulse 71; Resp 12 S; Pulse Ox 100% on R/A; as6 03:00 BP 91 / 54; Pulse 66; Resp 20 S; Pulse Ox 100% on R/A; as6 03:36 BP 96 / 62; Pulse 70; Resp 18 S; Pulse Ox 100% on R/A; as6 04:45 BP 94 / 58; Pulse 60; Resp 16; Pulse Ox 95% on R/A; vc1 05:30 BP 108 / 52; Pulse 60; Resp 18; Pulse Ox 97% on R/A; vc1 00:39 Body Mass Index 27.44 (77.11 kg, 167.64 cm) bb MDM: 09/17 23:28 Patient medically screened. [facility] 09/18 04:47 Differential diagnosis: Anemia. ms3 09/17 23:29 Order name: CBC with Diff; Complete Time: 03:32 [facility] 09/17 23:29 Order name: CMP; Complete Time: 03:32 [facility] 09/17 23:29 Order name: Lipase; Complete Time: 03:32 [facility] 09/18 01:42 Order name: Type And Screen as6 09/18 01:42 Order name: Abo/rh Typing as6 09/18 02:09 Order name: Glucose, Ancillary Testing; Complete Time: 03:32 [facility] 09/17 23:29 Order name: CT Abd/Pelvis - IV Contrast Only [facility] 09/17 23:29 Order name: IV Saline Lock; Complete Time: 02:39 [facility] 09/18 03:03 Order name: COVID-19 SARS RT PCR (Document "Date of Onset" if Symptomatic); Complete ms3 Time: 16:08 09/18 03:09 Order name: Packed RBC Leukored [facility] 09/18 03:36 Order name: Urine Dipstick-Ancillary; Complete Time: 03:53 [facility] 09/18 03:36 Order name: Urine --Ancillary (enter results); Complete Time: 16:08 09/17 23:29 Order name: Labs collected and sent; Complete Time: 01:41 [facility] 09/17 23:29 Order name: Urine Dipstick-Ancillary (obtain specimen); Complete Time: 03:36 [facility] 09/17 23:29 Order name: Urine Test (obtain specimen); Complete Time: 03:36 jm Administered Medications: 02:41 Drug: NS 0.9% 1000 ml Route: IV; Rate: 1 bolus; Site: left jugular; as6 03:39 Follow up: Response: No adverse reaction; IV Status: Completed infusion; IV Intake: as6 1000ml 02:41 Drug: Zofran (Ondansetron) 4 mg Route: IVP; Site: left jugular; as6 03:39 Follow up: Response: No adverse reaction as6 Disposition Summary: 09/18/21 02:58 Hospitalization Ordered Hospitalization Status: Inpatient Admission ms3 Provider: Mahesh Ramírez ms3 Condition: Guarded ms3 Problem: an acute exacerbation ms3 Symptoms: are unchanged ms3 Bed/Room Type: Standard ms3 [facility]09[facility]18[facility] 05:09[facility] mw Room Assignment: [facility]-(09/18/21 05:09) mw Diagnosis - Symptomatic anemia ms3 - Glanzmann's thrombasthenia ms3 Forms: - Medication Reconciliation Form ms3 - SBAR form ms3 Signatures: Dispatcher [employer] Mora Jeffers RN RN mw Mickail, Joel, PA PA jmm Ballard, Brenda, RN RN bb Sims, Marcus, DO ms3 Chance Leary RN RN asKeerthi Quiles PA PA sb3 Corrections: (The following items were deleted from the chart) 00:43 00:42 PMHx: C Section; mikal ren 05:09 02:58 Telemetry/MedSurg (Inpatient) ms3 mw 05:09 02:58 ms3 mw
[2021-09-18 03:11] LABS: Albumin 3.2 g/dL (3.4-5.0); Bilirubin Total 0.2 mg/dL (0.2-1.0); Potassium 3.9 mmol/L (3.5-5.1); Protein, Total 6.2 g/dL (6.4-8.2)
[2021-09-18 03:36] LABS: Urine Blood Negative (Negative); Urine Glucose Negative (Negative); Urine Protein Negative (Negative); Urine Specific Gravity 1.025 (1.005-1.030)
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
[2021-09-18 03:53] LABS: Urine Specific Gravity/Preg 1.025 (1.005-1.030)
[2021-09-18] MEDS ORDERED: DIPHENHYDRAMINE 50 MG/ML VIAL IV ONE ×3 (06:05→10:10)
[2021-09-18] MEDS ORDERED: METHYLPREDNISOLONE 125 MG INJ IV ONE (06:05)
[2021-09-18] MEDS ORDERED: MORPHINE 2 MG/ML SYR ONE (06:25)
[2021-09-18] MEDS ORDERED: NA CHLORIDE 0.9% 100 ML ONE ×2 (06:27→20:12)
[2021-09-18] MEDS ORDERED: DIPHENHYDRAMINE 50 MG/ML VIAL ONE ×2 (06:29→20:32)
[2021-09-18] MEDS: MORPHINE 2 MG/ML SYR IV PRN ×4 (06:32→20:28)
[2021-09-18] MEDS ORDERED: METHYLPREDNISOLONE 125 MG INJ ONE (06:33)
[2021-09-18] MEDS ORDERED: ONDANSETRON 4 MG/2 ML VIAL IV PRN (07:35)
[2021-09-18] MEDS ORDERED: ACETAMINOPHEN 500 MG TAB PO PRN (07:35)
[2021-09-18] MEDS ORDERED: HYDROMORPHONE HCL 1 MG/ML INJ IV PRN (07:35)
[2021-09-18 07:56] VITALS: BMI 28.2
[2021-09-18 08:16] VITALS: O2SAT 100
[2021-09-18 08:30] LABS: Ferritin 7.9 ng/mL (8-388)
[2021-09-18] MEDS ORDERED: NA CHLORIDE 0.9% 500 ML ONE (09:43)
[2021-09-18] MEDS: NA CHLORIDE 0.9% 500 ML IV SCH ×2 (10:00→12:46)
[2021-09-18 17:51] LABS: Hematocrit 23.5 % (36.0-45.0)
[2021-09-19 01:20] LABS: Hematocrit 24.2 % (36.0-45.0)
[2021-09-19] MEDS ORDERED: CYANOCOBALAMIN 1000MCG/ML INJ IM ONE (09:01)
[2021-09-19 10:59] VITALS: BP 106/65; TEMP 97.4
--- NOTE | 2021-09-20 11:20 | RAD REPORT ---
EXAM DESCRIPTION: CT - Abdomen Pelvis W Contrast - 09/18/2021 6:34 am CLINICAL HISTORY: The patient is 36 years old and is Female; Abdominal pain, acute, nonlocalized TECHNIQUE: Axial computed tomography images of the abdomen and pelvis with intravenous contrast. S agittal and coronal reformatted images were created and reviewed. This CT exam was performed using one or more of the following dose reduction techniques: automated exposure control, adjustment of t he mA and/or kV according to patient size, and/or use of iterative reconstruction technique. COMPARISON: CT abdomen pelvis August 23, 2021. FINDINGS: Lung bases: Unremarkable. No mass. No consolidation. ABDOMEN: Liver: Hepatomegaly. Scattered subcapsular hypodense lesions in the liver, largest measuring 2.2 cm in the latera l right hepatic lobe. These are benign in appearance and likely represent cysts/hemangioma. No follow -up imaging recommended. Gallbladder and bile ducts: Cholecystectomy without biliary dilatation. Pancreas: No findings to suggest acute pancreatitis. No mass visualized. No ductal dilation. Spleen: Mild splenomegaly. Adrenals: Unremarkable. No mass. Kidneys and ureters: Unremarkable. No solid mass. No hydronephrosis. Stomach and bowel: No bowel dilatation or obstruction. No bowel wall thickening. PELVIS: Appendix: The visualized appendix is normal. No pericecal inflammation to suggest acute appendic itis. Bladder: Foci of gas in the bladder lumen which may be from recent catheterization. Bladder is not well distended. No stones. Reproductive: 3.2 cm right ovarian cyst. 2.5 cm left ovarian cyst. Prominent endometrium, 1.5 cm. ABDOMEN and PELVIS: Intraperitoneal space: Unremarkable. No free air. No significant fluid collection. Bones/joints: L4-5 degenerative disc disease. Vertebral Schmorl's nodes. Mild scoliosis. No acut e fracture visualized. Scattered bone islands. No dislocation. Soft tissues: Unremarkable. Vasculature: Unremarkable. No abdominal aortic aneurysm. Lymph nodes: No pathologically enlarged lymph nodes. IMPRESSION: 1. No acute obstructive or inflammatory process identified. 2. Hepatomegaly. 3. 3.2 cm right ovarian cyst. 2.5 cm left ovarian cyst. No follow-up imaging is recommended. Reference: JACR 2019;17(2):248-254 4. Prominent endometrium, 1.5 cm. 5. Foci of gas in the bladder lumen which may be from recent catheterization. Clinical correlation suggested. 6. Additional non-emergent findings as above. Electronically signed by: Rossy Rehman MD 09/18/2021 5:10 AM CDT Due to temporary technical issues with the PACS/Fluency reporting system, reports are being signed by the in house radiologist without review as a courtesy to ensure prompt reporting. The interpreting r adiologist is fully responsible for the content of the report.
== END 2021-09-19 10:50 | disposition home or self-care (01) | DRG 812 ==
LOC: ER 23:03 → ERHOLD 09-18 03:29 → OBSVTOIN 09-18 03:29 → ERHOLD 09-18 04:54 → 2ND-WC 09-18 05:24
PROVIDERS: ADMIT Hospitalist; ATTEND Hospitalist
PROC: 30233N1 Transfusion of Nonautologous Red Blood Cells into Peripheral Vein, Percutaneous Approach (ICD-10-PCS; principal; 2021-09-18)
DX: D62 Acute posthemorrhagic anemia (principal); N92.0 Excessive and frequent menstruation with regular cycle; D69.1 Qualitative platelet defects; Z20.822 Contact with and (suspected) exposure to COVID-19
CPT/HCPCS: 36415; 36430; 74177; 80053; 81003; 81025; 82565; 82728; 82947; 83540; 83690; 84466; 85014; 85018; 85025; 86850; 86900; 86901; 86922; 96361; 96374; 99285; G0378; J1170; J1200; J2270; J2405; J2930; J7030; J7040; P9016; Q9967; U0003

== ENCOUNTER 2021-09-27 14:03 | Emergency (ER) | payer OTHER ==
--- OUTSIDE RECORDS SUMMARY | 2021-09-27 14:12 | XMS REPORT | Continuity of Care Document ---
:1985 Author Organization [facility] t Address [address] [place] [address] Care Team Providers Name Role Phone AKIL, Anayeli Primary Care Physician Unavailable Maya Cummins Attending Clinician Unavailable MAYELIN Attending Clinician Unavailable Doctor Unassigned, Name Attending Clinician Unavailable Jose Manuel CARLOS Attending Clinician MELISSA LR Attending Clinician Unavailable Melissa Lr MD Attending Clinician [place] Attending Clinician Unavailable Marlin Ramírez Attending Clinician Unavailable RENE Attending Clinician Unavailable Juan Manuel Reis DO Attending Clinician Misael RINCON Attending Clinician Unavailable Samuel RINCON, Leta Attending Clinician Unavailable Peggy SANDRA, M Attending Clinician Visit, Nurse Attending Clinician Unavailable Anegla ARCHULETA C Attending Clinician Anayeli Alarcon Attending Clinician Holger Upton MD Attending Clinician Rocío SANDRA, S Attending Clinician Syd MARIEE, R Attending Clinician Dl SANDRA Attending Clinician Ultrasound Attending Clinician Unavailable FergusonSoraida mckinley Attending Clinician Risk Attending Clinician Unavailable David, Attending Clinician Unavailable Ricarda Moore MD Attending Clinician Eduardo SANDRA, W Attending Clinician 2, [facility] Room Attending Clinician Unavailable Aries SANDRA Attending Clinician Faculty, [facility] Attending Clinician Unavailable Emy ARCHULETA, Bubba Attending Clinician Damien Olmos MD Attending Clinician Luigi Cordero Attending Clinician Chaparro Patel Attending Clinician 5, [facility] Room Attending Clinician Unavailable Chato SANDRA, Mabel Attending Clinician Rj SANDRA, F Attending Clinician Jose C SANDRA Attending Clinician Maya Cummins Admitting Clinician Unavailable MELISSA LR Admitting Clinician Unavailable Melissa Lr MD Admitting Clinician [place] Admitting Clinician Unavailable Physician, Primary or Family Admitting Clinician Unavailmojgan Woods MD, M Admitting Clinician Dl SANDRA Admitting Clinician Damien Olmos MD Admitting Clinician Payers Payer Name Policy Type Policy Number Effective Date Expiration Date S ource MEDICAID OF [place] [id number] 2018 00:00:00 Problems Condition Condition Condition Status Onset Resolution Last Treating Co mments Source Name Details Category Date Date Treatment Clinician Date Anemia Anemia Disease Active 2021-0 Univers 5-10 ity of 00:00: [address] Abnormal Abnormal Disease Active 2018-04 Unive rs TSH TSH 0-18 ity of 00:00: [place] [facility] Fatty Fatty Disease Active 2018-04 Univers liver liver 0-18 ity of 00:00: [address] Other Other Disease Active 2018-04 Univers fatigue fatigue 0-18 ity of 00:00: [place] [facility] Severe Severe Disease Active Univers pre-eclamp pre-eclamp 9-17 it y of richard, richard, 00:00: [place] 00 Me dical condition condition Bran ch or or complicati complicati on on 37 weeks 37 weeks Disease Active Unive rs gestation gestation 9-05 ity of of of 00:00: [place] 00 [facility] Research Research Disease Active Overview: Un brayden study study 12-13 Formattin ity of patient: patient: 00:00: g of this Eladio as ECCCO: ECCCO: 00 note Medical Group C Group C might be Branch different from the original. Notice of research participa tion in the ECCCO Trial: IRB # [id number]. PI-eDstin De La Rosa MD. Date of informed [...] anemia anemia 8-05 ity of 00:00: [place] [facility] Anemia of Anemia of Disease Active Uni vers mother in mother in 8-05 ity of , , [place] antepartum antepartum 00 Me dical Branch Obesity Obesity Disease Active Univers (BMI (BMI 7-08 ity of 30-39.9) 30-39.9) 00:00: [facility] Rubella Rubella Disease Active Univers non-immune [...] nivers y y 2-12 ity of 00:00: [place] [facility] History of History of Disease [...] Date Date Clinician iron DA Active U UNKNOWN [facility] 1-18 [facility] 00:[facility]: [facility] [place] NSAIDS DA Active SV BLOOD [facility] (Non-[place] CLOTTING 1-18 Woman' s roidal DISORDER 00:00[facility] BLOOD [facility] (Non-[place] 1-17 Woman' s roidal DISORDER 00:00[facility] U [facility] 1-17 Woman's 00:00: [facility] 00 l of [place] asprin DA Active SV itching, [facility] hives 1-17 Woman's 00:00: [facility] 00 l of [place] iron DA Active U UNKNOWN 2020- [facility] [...] 12-24 ity of 00:00: [place] 00 Medical [place] Social History Social Habit Start Date Stop Date Quantity Comments Source ASSERTION 2018-04-15 [facility] 00:00:00 [facility] Alcohol Comment occasionally Univers ity of [facility] Exposure to 2021-08-14 2021-08-24 Not sure [facility] SARS-CoV-2 00:00:00 03:18:00 [facility] (event) [place] Alcohol intake 2021-08-24 2021-08-24 0 /d University of 00:00:00 00:00:00 [facility] Education 2021-08-24 2021-08-24 14 University of 00:00:00 00:00:00 [facility] Tobacco Comment 2018-05-29 2018-05-29 1 pack per week; Uni versity of 00:00:00 00:00:00 quit 2016 [facility] Tobacco use and 2016-06-20 2016-06-20 Never used Universit y of exposure 00:00:00 00:00:00 [facility] Cigarettes smoked 2016-06-20 2016-06-20 Univers ity of current (pack per 00:00:00 00:00:00 [facility] ) - Reported Branch Cigarette 2016-06-20 2016-06-20 University of pack-years 00:00:00 00:00:00 [facility] History of 2015-06-21 Cigarette Smoker [facility] ty of tobacco use 00:00:00 [facility] Sex [birth year] At [birth year] Universit y of 00:00:00 00:00:00 [facility] Smoking Status Start Date Stop Date Source Former smoker 2016-06-20 00:00:00 2016-06-20 00:00:00 [facility] Medications Ordered Filled Start Stop Current Ordering Indication Dosage Frequency Signature Comments Components Source Medication Medication Date Date Medication? Clinician (SIG) Name Name ferrous Yes [id number] 325mg Take 1 Uni vers sulfate 325 5-13 tablet by ity of mg (65 mg 00:00: mouth [place] iron) 00 daily. [facility] ferrous Yes [id number] 325mg Take 1 Uni vers sulfate 325 5-13 tablet by ity of mg (65 mg 00:00: mouth [place] iron) 00 daily. [facility] ferrous Yes [id number] 325mg Take 1 Uni vers sulfate 325 5-13 tablet by ity of mg (65 mg 00:00: mouth [place] iron) 00 daily. [facility] vitamin 2021- No 500ug Take 500 Univ ers B-12 500 5-12 05-12 mcg by ity of mcg tablet 11:10: 00:00 [facility] 54 :00 daily. [facility] vitamin C 2021- No 100mg Take 100 Un brayden 100 mg 5-12 05-12 mg by ity of tablet 11:10: 00:00 mouth [place] 54 :00 daily. [facility] tranexamic Yes 650mg 650 mg, Uni vers acid 5-12 Oral, TID, ity of (LYSTEDA) 01:00: [place] tablet 650 00 on Mon Medical mg 08/25/21 at Branch 1999, Until Discontinu ed, Routine tranexamic Yes [id number] Take Uni vers acid 650 mg 5-12 ity of tablet 00:00: [place] 00 [facility] tranexamic 0 Yes [id number] Take Uni vers acid 650 mg 5-12 ity of tablet 00:00: [place] 00 [facility] tranexamic 2021-0 Yes [id number] Take Uni vers acid 650 mg 5-12 ity of tablet 00:00: [place] 00 [facility] iron 2021- No 300mg 300 mg, [...] 08-25 Oral, ity of (TYLENOL) 01:00: Q12H, [place] tablet 650 00 First dose Med ical [...] [place] tablet 650 00 :00 on Mon [facility] mg 08/24/21 at [place] 1400, Until Discontinu ed, Routine HYDROcodone 2021- No 1{tbl} 1 tablet, Univers -acetaminop - 05-10 Oral, ity of hen (NORCO) 17:23: 20:26 Q4HPRN, [place] 10-325 mg 59 :00 Starting Medica l tablet 1 on Mon [place] tablet 08/24/21 at 1223, Until Mon08/24/21 at 1526, Routine, Pain (scale 7-10) simethicone Yes 160mg 160 mg, Un brayden (GAS RELIEF 5-10 Oral, ity of (SIMETHICON 14:00: PC[place]HS[place] E[place] 00 First dose Medical chewable on Mon [place] tablet 160 08/24/21 at mg 0900, Until Discontinu ed, Routine docusate Yes 100mg 100 mg, Unive rs (COLACE) 5-10 Oral, ity of capsule 100 13:00: Q12H, [place] mg 00 First dose Medical on [facility] 08/24/21 at 0800, Until Discontinu ed, Routine [...] f (DEPO-PROVE 15:15: lar, [place] RA) 00 E2ONHCHK, Medical injection First dose Bran ch 150 [...] already on magnesium sulfate) HYDROcodone 2018- Yes [id number] 1{tbl} Take 1 Univers -acetaminop 9-17 tablet by ity of hen 5-325 00:00: mouth [place] mg tablet 00 every 6 Medical (six) Branch hours as needed for Pain (scale 4-6). hydroCHLORO 2018- Yes [id number] 50mg Take 1 Univers thiazide 50 9-17 [...] at Branch 2130, STAT furosemide 2018-0 Yes [id number] 40mg Take 1 Univers (LASIX) 40 9-14 tablet by ity of mg tablet 00:00: mouth [place] 00 daily. [facility] hydrALAZINE 2018- Yes [id number] 10mg Take 1 Univers 10 mg 9-14 tablet by ity of tablet 00:00: mouth [place] 00 every 6 Medical (six) Branch hours. furosemide 2019- Yes [id number] 40mg Take 1 Univers (LASIX) 40 9-14 tablet by ity of mg tablet 00:00: mouth [place] 00 daily. [facility] hydrALAZINE Yes [id number] 10mg Take 1 Univers 10 mg 9-14 tablet by ity of tablet 00:00: mouth [place] 00 every 6 Medical (six) Branch hours. furosemide 2019- Yes [id number] 40mg Take 1 Univers (LASIX) 40 9-14 tablet by ity of mg tablet 00:00: mouth [place] 00 daily. [facility] hydrALAZINE Yes [id number] 10mg Take 1 Univers 10 mg 9-14 tablet by ity of tablet 00:00: mouth [place] 00 every 6 Medical (six) Branch hours. furosemide 2018-0 Yes [id number] 40mg Take 1 Univers (LASIX) 40 9-14 tablet by ity of mg tablet 00:00: mouth [place] 00 daily. [facility] hydrALAZINE 2018- Yes [id number] 10mg Take 1 Univers 10 mg 9-14 tablet by ity of tablet 00:00: mouth [place] 00 every 6 Medical (six) Branch hours. furosemide 2018- 2019- No [id number] 40mg Take 1 Univers (LASIX) 40 9-14 -17 tablet by ity of mg tablet 00:00: 00:00 mouth [place] 00 :00 daily. [facility] hydrALAZINE 2019- No [id number] 10mg Take 1 Univers 10 mg 9-14 [...] mcg tablet 18:49: mouth [place] 42 daily. [facility] vitamin C Yes 100mg Take 100 [...] 12-24 Oral, ity of (SURFAK) 06:27: QDZACHARIAHYPMCKENZIE [place] as capsule 240 19 Starting Medi frank [...] ed, Routine, Pain (scale 7-10) docusate Yes [id number] 240mg Take 1 U nivers calcium 240 9-09 capsule by it y of mg capsule 00:00: mouth [place] 00 daily as Medical needed for Branch Constipati on. HYDROcodone Yes [id number] 1{tbl} Take 1 Univers -acetaminop 9-09 tablet by ity of hen 5-325 00:00: mouth [place] mg tablet 00 every 6 Medical (six) Branch hours as needed for Pain (scale 4-6) (If uncontroll ed by Ibuprofen) . simethicone Yes [id number] 160mg Take 2 Univers 80 mg 9-09 tablets by ity of chewable 00:00: mouth [place] tablet 00 after Medical meals and Branch at bedtime as needed for Gas. docusate Yes [id number] 240mg Take 1 U nivers calcium 240 9-09 capsule by it y of mg capsule 00:00: mouth once [place] 00 daily as Medical needed for Branch Constipati on. HYDROcodone Yes [id number] 1{tbl} Take 1 Univers -acetaminop 9-09 tablet by ity of hen 5-325 00:00: mouth [place] mg tablet 00 every 6 Medical (six) Branch hours as needed for Pain (scale 4-6) (If uncontroll ed by Ibuprofen) . simethicone Yes [id number] 160mg Take 2 Univers 80 mg 9-09 tablets by ity of chewable 00:00: mouth [place] tablet 00 after Medical meals and Branch at bedtime as needed for Gas. docusate Yes [id number] 240mg Take 1 U nivers calcium 240 9-09 capsule by it y of mg capsule 00:00: mouth once [place] 00 daily as Medical needed for Branch Constipati on. HYDROcodone Yes [id number] 1{tbl} Take 1 Univers -acetaminop 9-09 tablet by ity of hen 5-325 00:00: mouth [place] mg tablet 00 every 6 Medical (six) Branch hours as needed for Pain (scale 4-6) (If uncontroll ed by Ibuprofen) . simethicone Yes [id number] 160mg Take 2 Univers 80 mg 9-09 tablets by ity of chewable 00:00: mouth [place] tablet 00 after Medical meals and Branch at bedtime as needed for Gas. docusate Yes [id number] 240mg Take 1 U nivers calcium 240 9-09 capsule by it y of mg capsule 00:00: mouth once [place] 00 daily as Medical needed for Branch Constipati on. HYDROcodone Yes [id number] 1{tbl} Take 1 Univers -acetaminop 9-09 tablet by ity of hen 5-325 00:00: mouth [place] mg tablet 00 every 6 Medical (six) Branch hours as needed for Pain (scale 4-6) (If uncontroll ed by Ibuprofen) . simethicone Yes [id number] 160mg Take 2 Univers 80 mg 9-09 tablets by ity of chewable 00:00: mouth [place] tablet 00 after Medical meals and Branch at bedtime as needed for Gas. docusate Yes [id number] 240mg Take 1 U nivers calcium 240 9-09 capsule by it y of mg capsule 00:00: mouth once [place] 00 daily as Medical needed for Branch Constipati on. HYDROcodone Yes [id number] 1{tbl} Take 1 Univers -acetaminop 9-09 tablet by ity of hen 5-325 00:00: mouth [place] mg tablet 00 every 6 Medical (six) Branch hours as needed for Pain (scale 4-6) (If uncontroll ed by Ibuprofen) . simethicone Yes [id number] 160mg Take 2 Univers 80 mg 9-09 tablets by ity of chewable 00:00: mouth [place] tablet 00 after Medical meals and Branch at bedtime as needed for Gas. docusate Yes [id number] 240mg Take 1 U nivers calcium 240 9-09 capsule by it y of mg capsule 00:00: mouth once [place] 00 daily as Medical needed for Branch Constipati on. HYDROcodone Yes [id number] 1{tbl} Take 1 Univers -acetaminop 9-09 tablet by ity of hen 5-325 00:00: mouth [place] mg tablet 00 every 6 Medical (six) Branch hours as needed for Pain (scale 4-6) (If uncontroll ed by Ibuprofen) . simethicone Yes [id number] 160mg Take 2 Univers 80 mg 9-09 tablets by ity of chewable 00:00: mouth [place] tablet 00 after Medical meals and Branch at bedtime as needed for Gas. docusate Yes [id number] 240mg Take 1 U nivers calcium 240 12-24 capsule by it y of mg capsule 00:00: mouth once [place] 00 daily as Medical needed for Branch Constipati on. simethicone Yes [id number] 160mg Take 2 Univers 80 mg 12-24 tablets by ity of chewable 00:00: mouth [place] tablet 00 after Medical meals and Branch at bedtime as needed for Gas. HYDROcodone 2019- No [id number] 1{tbl} Take 1 Univers -acetaminop 12-24 tablet [...] IV ity of (CYKLOKAPRO 15:17: 23:29 [place], [place] N) 1,000 mg 00 :00 Q8H ABX, [...] uncontroll ed by Ibuprofen coagulation 2019- No [id number] 10,000 Univers factor viia 12-22 mcg, Slow it y of recomb 12:00: 13:56 IV Push, [place] (NOVOSEVEN) 00 :00 ONCE, 1 Medic al injection dose, Sat Branc h 10,000 mcg 12/22/18 at 0700, SUSI
Us e approved by (Faculty and pager): Suresh SAUNDERS , [id number], HEMATOLOGY /ONCOLOGY HYDROcodone Yes 1{tbl} 1 tablet, [...] at Branch 0215, Routine coagulation 2018- No [id number] 10,000 Univers factor viia 12-22 mcg, Slow it y of recomb 07:15: 06:54 IV Push, [place] (NOVOSEVEN) 00 :00 ONCE, 1 Medic al injection dose, Sat Branc h 10,000 mcg 12/22/18 at 0215, Routine
Use approved by (Faculty and pager): Suresh SAUNDERS [id number], HEMATOLOGY /ONCOLOGY hydrocortis Yes 25mg 25 mg, Univ ers one 12-22 Rectal, ity of (ANUSOL-HC) 04:10: BIDPRN, [place] as suppository 37 Starting Medi frank 25 mg 12/21/18 Branch at 2310, Until Discontinu ed, Routine, Rectal itching/pa in coagulation 2019- No 9000ug 9,000 mcg, Univers factor viia 12-22 Slow IV ity of recomb 02:45: 02:13 Push, [place] (NOVOSEVEN) 00 :00 ONCE, 1 Medic al injection dose, Fri Branc h 9,000 mcg 12/21/18 at 2145, Routine
Use approved by (Faculty and pager): Suresh SAUNDERS [id number], HEMATOLOGY /ONCOLOGY coagulation 2019- No [id number] 10,000 Univers factor viia 12-21 mcg, Slow it y of recomb 20:00: 20:27 IV Push, [place] (NOVOSEVEN) 00 :00 ONCE, 1 Medic al injection dose, Fri Branc h 10,000 mcg 12/21/18 at 1500, SUSI
Us e approved by (Faculty and pager): Suresh SAUNDERS [id number], HEMATOLOGY /ONCOLOGY morpHINE 30 2019- No Unive rs mg/30 mL 12-21 ity of (fixed 18:00: 06:27 [place] dose) GUIDE PLANT 00 :24 Medical injection [place] coagulation 2019- No [id number] 10,000 Univers factor viia 12-21 mcg, Slow it y of recomb 17:10: 17:55 IV Push, [place] (NOVOSEVEN) 00 :00 ONCE, 1 Medic al injection dose, Mon Branc h 10,000 mcg 12/21/18 at 1215, SUSI
Us e approved by (Faculty and pager): Suresh SAUNDERS , [id number], HEMATOLOGY /ONCOLOGY LR 1000 mL 2018- No [...] Push, ity of mg 16:26: Q5MIN PRN, [place] 05 5 doses, Medical Starting Branch Mon12/21/18 [...] Oral, ity of w/FA 14:00: 06:27 DAILY, [place] (PRENATABS 00 :24 First dose Med ical [...] Surgical Prophylaxi s
[place] rgical Prophylaxi s: CLIENT DELIVERY SPECIALIST
Duration of therapy: within 24 hours of surgery clindamycin 2018- No 900mg 900 mg, IV Univers in 5 % 12-21 Piggy[place], ity of dextrose 11:23: 15:17 O.R. [place] (CLEOCIN) 04 :00 HOLDING Medical 900 mg/50 ONCE, 1 Branch mL dose, [place] Starting 900 mg Mon12/21/18 at 0623, Until Discontinu ed, 50 mL
Facu lty member approving Restricted medication : OB FACULTY
Reason for Anti-Infec tive: Surgical Prophylaxi s
Surgi frank Prophylaxi s: CLIENT DELIVERY SPECIALIST
Duration of therapy: within 24 hours of surgery
Restricte d use approved by: CLIENT DELIVERY SPECIALIST FACULTY sodium 2019- No 30mL 30 mL, [...] 18 daily. Medical Branch ferrous 2019-0 Yes [id number] 325mg Take 1 Un brayden sulfate 325 7-02 tablet by ity of mg (65 mg 00:00: mouth 2 [place] iron) 00 (two) Medical tablet times Branch daily. ferrous 2019-0 Yes [id number] 325mg Take 1 Un brayden sulfate 325 7-02 tablet by ity of mg (65 mg 00:00: mouth 2 [place] iron) 00 (two) Medical tablet times Branch daily. ferrous 2019-0 Yes [id number] 325mg Take 1 Un brayden sulfate 325 7-02 tablet by ity of mg (65 mg 00:00: mouth 2 [place] iron) 00 (two) Medical tablet times Branch daily. ferrous 2019-0 Yes [id number] 325mg Take 1 Un brayden sulfate 325 7-02 tablet by ity of mg (65 mg 00:00: mouth 2 [place] iron) 00 (two) Medical tablet times Branch daily. ferrous 2019-0 Yes [id number] 325mg Take 1 Un brayden sulfate 325 7-02 tablet by ity of mg (65 mg 00:00: mouth 2 [place] iron) 00 (two) Medical tablet times Branch daily. ferrous 2019-0 Yes [id number] 325mg Take 1 Un brayden sulfate 325 7-02 tablet by ity of mg (65 mg 00:00: mouth 2 [place] iron) 00 (two) Medical tablet times Branch daily. ferrous 2019-0 Yes [id number] 325mg Take 1 Un brayden sulfate 325 7-02 tablet by ity of mg (65 mg 00:00: mouth 2 [place] iron) 00 (two) Medical tablet times Branch daily. ferrous 2019-0 Yes [id number] 325mg Take 1 Un brayden sulfate 325 7-02 tablet by ity of mg (65 mg 00:00: mouth 2 [place] iron) 00 (two) Medical tablet times Branch daily. ferrous 2019-0 Yes [id number] 325mg Take 1 Un brayden sulfate 325 7-02 tablet by ity of mg (65 mg 00:00: mouth 2 [place] iron) 00 (two) Medical tablet times Branch daily. ferrous 2019-0 Yes [id number] 325mg Take 1 Un brayden sulfate 325 7-02 tablet by ity of mg (65 mg 00:00: mouth 2 [place] iron) 00 (two) Medical tablet times Branch daily. ferrous 2019-0 Yes [id number] 325mg Take 1 Un brayden sulfate 325 7-02 tablet by ity of mg (65 mg 00:00: mouth 2 [place] iron) 00 (two) Medical tablet times Branch daily. ferrous 2018-0 Yes [id number] 325mg Take 1 Un brayden sulfate 325 7-02 tablet by ity of mg (65 mg 00:00: mouth 2 [place] iron) 00 (two) Medical tablet times Branch daily. ferrous 2019-0 Yes [id number] 325mg Take 1 Un brayden sulfate 325 7-02 tablet by ity of mg (65 mg 00:00: mouth 2 [place] iron) 00 (two) Medical tablet times Branch daily. ferrous 2019-0 Yes [id number] 325mg Take 1 Un brayden sulfate 325 7-02 tablet by ity of mg (65 mg 00:00: mouth 2 [place] iron) 00 (two) Medical tablet times Branch daily. ferrous 2019-0 Yes [id number] 325mg Take 1 Un brayden sulfate 325 7-02 tablet by ity of mg (65 mg 00:00: mouth 2 [place] iron) 00 (two) Medical tablet times Branch daily. ferrous 2019-0 Yes [id number] 325mg Take 1 Un brayden sulfate 325 7-02 tablet by ity of mg (65 mg 00:00: mouth 2 [place] iron) 00 (two) Medical tablet times Branch daily. ferrous 2019-0 Yes [id number] 325mg Take 1 Un brayden sulfate 325 7-02 tablet by ity of mg (65 mg 00:00: mouth 2 [place] iron) 00 (two) Medical tablet times Branch daily. ferrous 2019-0 Yes [id number] 325mg Take 1 Un brayden sulfate 325 7-02 tablet by ity of mg (65 mg 00:00: mouth 2 [place] iron) 00 (two) Medical tablet times Branch daily. ferrous 2019-0 Yes [id number] 325mg Take 1 Un brayden sulfate 325 7-02 tablet by ity of mg (65 mg 00:00: mouth 2 [place] iron) 00 (two) Medical tablet times Branch daily. ferrous 2018-0 Yes [id number] 325mg Take 1 Un brayden sulfate 325 7-02 tablet by ity of mg (65 mg 00:00: mouth 2 [place] iron) 00 (two) Medical tablet times Branch daily. ferrous 2019-0 Yes [id number] 325mg Take 1 Un brayden sulfate 325 7-02 tablet by ity of mg (65 mg 00:00: mouth 2 [place] iron) 00 (two) Medical tablet times Branch daily. ferrous 2018-0 Yes [id number] 325mg Take 1 Un brayden sulfate 325 7-02 tablet by ity of mg (65 mg 00:00: mouth 2 [place] iron) 00 (two) Medical tablet times Branch daily. ferrous 2018-0 Yes [id number] 325mg Take 1 Un brayden sulfate 325 7-02 tablet by ity of mg (65 mg 00:00: mouth 2 [place] iron) 00 (two) Medical tablet times Branch daily. ferrous 2018-0 Yes [id number] 325mg Take 1 Un brayden sulfate 325 7-02 tablet by ity of mg (65 mg 00:00: mouth 2 [place] iron) 00 (two) Medical tablet times Branch daily. ferrous 2018-0 Yes [id number] 325mg Take 1 Un brayden sulfate 325 7-02 tablet by ity of mg (65 mg 00:00: mouth 2 [place] iron) 00 (two) Medical tablet times Branch daily. ferrous 2019-0 Yes [id number] 325mg Take 1 Un brayden sulfate 325 7-02 tablet by ity of mg (65 mg 00:00: mouth 2 [place] iron) 00 (two) Medical tablet times Branch daily. ferrous 2019-0 Yes [id number] 325mg Take 1 Un brayden sulfate 325 7-02 tablet by ity of mg (65 mg 00:00: mouth 2 [place] iron) 00 (two) Medical tablet times Branch daily. ferrous 2019-0 Yes [id number] 325mg Take 1 Un brayden sulfate 325 7-02 tablet by ity of mg (65 mg 00:00: mouth 2 [place] iron) 00 (two) Medical tablet times Branch daily. ferrous 2019-0 Yes [id number] 325mg Take 1 Un brayden sulfate 325 7-02 tablet by ity of mg (65 mg 00:00: mouth 2 [place] iron) 00 (two) Medical tablet times Branch daily. ferrous 2019-0 Yes [id number] 325mg Take 1 Un brayden sulfate 325 7-02 tablet by ity of mg (65 mg 00:00: mouth 2 [place] iron) 00 (two) Medical tablet times Branch daily. ferrous 2019-0 Yes [id number] 325mg Take 1 Un brayden sulfate 325 7-02 tablet by ity of mg (65 mg 00:00: mouth 2 [place] iron) 00 (two) Medical tablet times Branch daily. ferrous 2018-0 Yes [id number] 325mg Take 1 Un brayden sulfate 325 7-02 tablet by ity of mg (65 mg 00:00: mouth 2 [place] iron) 00 (two) Medical tablet times Branch daily. ferrous 2018- Yes [id number] 325mg Take 1 Un brayden sulfate 325 7-02 tablet by ity of mg (65 mg 00:00: mouth 2 [place] iron) 00 (two) Medical tablet times Branch daily. ferrous 2019- Yes [id number] 325mg Take 1 Un brayden sulfate 325 7-02 tablet by ity of mg (65 mg 00:00: mouth 2 [place] iron) 00 (two) Medical tablet times Branch daily. ferrous 2019-0 Yes [id number] 325mg Take 1 Un brayden sulfate 325 7-02 tablet by ity of mg (65 mg 00:00: mouth 2 [place] iron) 00 (two) Medical tablet times Branch daily. ferrous 2018- Yes [id number] 325mg Take 1 Un brayden sulfate 325 7-02 tablet by ity of mg (65 mg 00:00: mouth 2 [place] iron) 00 (two) Medical tablet times Branch daily. ferrous 2019-0 Yes [id number] 325mg Take 1 Un brayden sulfate 325 7-02 tablet by ity of mg (65 mg 00:00: mouth 2 [place] iron) 00 (two) Medical tablet times Branch daily. ferrous 2019-0 Yes [id number] 325mg Take 1 Un brayden sulfate 325 7-02 tablet by ity of mg (65 mg 00:00: mouth 2 [place] iron) 00 (two) Medical tablet times Branch daily. ferrous 20182021- No [id number] 325mg Take 1 U nivers sulfate 325 10-16 05-12 tablet by it y of mg (65 mg 00:00: 00:00 [place] iron) 00 :00 (two) Medical tablet times Branch daily. PNV 67-iron 2018- Yes [id number] 1{each} Take 1 Univers ps-folate 4-05 Each by ity of no.1-dha 00:00: mouth [place] (VITAFOL 00 daily. Medical ULTRA) 29 Branch mg iron- 1 mg-200 mg Cap PNV 67-iron 2018- Yes [id number] 1{each} Take 1 Univers ps-folate 4-05 Each by ity of no.1-dha 00:00: mouth [place] (VITAFOL 00 daily. Medical ULTRA) 29 Branch mg iron- 1 mg-200 mg Cap PNV 67-iron Yes [id number] 1{each} Take 1 Univers ps-folate 4-05 Each by ity of no.1-dha 00:00: mouth [place] (VITAFOL 00 daily. Medical ULTRA) 29 Branch mg iron- 1 mg-200 mg Cap PNV 67-iron 2018- Yes [id number] 1{each} Take 1 Univers ps-folate 4-05 Each by ity of no.1-dha 00:00: mouth [place] (VITAFOL 00 daily. Medical ULTRA) 29 Branch mg iron- 1 mg-200 mg Cap PNV 67-iron 2018- Yes [id number] 1{each} Take 1 Univers ps-folate 4-05 Each by ity of no.1-dha 00:00: mouth [place] (VITAFOL 00 daily. Medical ULTRA) 29 Branch mg iron- 1 mg-200 mg Cap PNV 67-iron 2019- Yes [id number] 1{each} Take 1 Univers ps-folate 4-05 Each by ity of no.1-dha 00:00: mouth [place] (VITAFOL 00 daily. Medical ULTRA) 29 Branch mg iron- 1 mg-200 mg Cap PNV 67-iron 2019- Yes [id number] 1{each} Take 1 Univers ps-folate 4-05 Each by ity of no.1-dha 00:00: mouth [place] (VITAFOL 00 daily. Medical ULTRA) 29 Branch mg iron- 1 mg-200 mg Cap PNV 67-iron 2019-0 Yes [id number] 1{each} Take 1 [facility] ps-folate 4-05 Each by ity of no.1-dha 00:00: mouth [place] (VITAFOL 00 daily. Medical ULTRA) 29 Branch mg iron- 1 mg-200 mg Cap PNV 67-iron 2019-0 Yes [id number] 1{each} Take 1 [facility] ps-folate 4-05 Each by ity of no.1-dha 00:00: mouth [place] (VITAFOL 00 daily. Medical ULTRA) 29 Branch mg iron- 1 mg-200 mg Cap PNV 67-iron 2019-0 Yes [id number] 1{each} Take 1 [facility] ps-folate 4-05 Each by ity of no.1-dha 00:00: mouth [place] (VITAFOL 00 daily. Medical ULTRA) 29 Branch mg iron- 1 mg-200 mg Cap PNV 67-iron 2019-0 Yes [id number] 1{each} Take 1 [facility] ps-folate 4-05 Each by ity of no.1-dha 00:00: mouth [place] (VITAFOL 00 daily. Medical ULTRA) 29 Branch mg iron- 1 mg-200 mg Cap PNV 67-iron 2019-0 Yes [id number] 1{each} Take 1 [facility] ps-folate 4-05 Each by ity of no.1-dha 00:00: mouth [place] (VITAFOL 00 daily. Medical ULTRA) 29 Branch mg iron- 1 mg-200 mg Cap PNV 67-iron 2019-0 Yes [id number] 1{each} Take 1 [facility] ps-folate 4-05 Each by ity of no.1-dha 00:00: mouth [place] (VITAFOL 00 daily. Medical ULTRA) 29 Branch mg iron- 1 mg-200 mg Cap PNV 67-iron 2019-0 Yes [id number] 1{each} Take 1 [facility] ps-folate 4-05 Each by ity of no.1-dha 00:00: mouth [place] (VITAFOL 00 daily. Medical ULTRA) 29 Branch mg iron- 1 mg-200 mg Cap PNV 67-iron 2019-0 Yes [id number] 1{each} Take 1 [facility] ps-folate 4-05 Each by ity of no.1-dha 00:00: mouth [place] (VITAFOL 00 daily. Medical ULTRA) 29 Branch mg iron- 1 mg-200 mg Cap PNV 67-iron 2019-0 Yes [id number] 1{each} Take 1 [facility] ps-folate 4-05 Each by ity of no.1-dha 00:00: mouth [place] (VITAFOL 00 daily. Medical ULTRA) 29 Branch mg iron- 1 mg-200 mg Cap PNV 67-iron 2019-0 Yes [id number] 1{each} Take 1 [facility] ps-folate 4-05 Each by ity of no.1-dha 00:00: mouth [place] (VITAFOL 00 daily. Medical ULTRA) 29 Branch mg iron- 1 mg-200 mg Cap PNV 67-iron 2019-0 Yes [id number] 1{each} Take 1 [facility] ps-folate 4-05 Each by ity of no.1-dha 00:00: mouth [place] (VITAFOL 00 daily. Medical ULTRA) 29 Branch mg iron- 1 mg-200 mg Cap PNV 67-iron 2019-0 Yes [id number] 1{each} Take 1 [facility] ps-folate 4-05 Each by ity of no.1-dha 00:00: mouth [place] (VITAFOL 00 daily. Medical ULTRA) 29 Branch mg iron- 1 mg-200 mg Cap PNV 67-iron 2019-0 Yes [id number] 1{each} Take 1 [facility] ps-folate 4-05 Each by ity of no.1-dha 00:00: mouth [place] (VITAFOL 00 daily. Medical ULTRA) 29 Branch mg iron- 1 mg-200 mg Cap PNV 67-iron 2019-0 Yes [id number] 1{each} Take 1 [facility] ps-folate 4-05 Each by ity of no.1-dha 00:00: mouth [place] (VITAFOL 00 daily. Medical ULTRA) 29 Branch mg iron- 1 mg-200 mg Cap PNV 67-iron 2019-0 Yes [id number] 1{each} Take 1 [facility] ps-folate 4-05 Each by ity of no.1-dha 00:00: mouth [place] (VITAFOL 00 daily. Medical ULTRA) 29 Branch mg iron- 1 mg-200 mg Cap PNV 67-iron 2019-0 Yes [id number] 1{each} Take 1 [facility] ps-folate 4-05 Each by ity of no.1-dha 00:00: mouth [place] (VITAFOL 00 daily. Medical ULTRA) 29 Branch mg iron- 1 mg-200 mg Cap PNV 67-iron 2019-0 Yes [id number] 1{each} Take 1 [facility] ps-folate 4-05 Each by ity of no.1-dha 00:00: mouth [place] (VITAFOL 00 daily. Medical ULTRA) 29 Branch mg iron- 1 mg-200 mg Cap PNV 67-iron 2019-0 Yes [id number] 1{each} Take 1 [facility] ps-folate 4-05 Each by ity of no.1-dha 00:00: mouth [place] (VITAFOL 00 daily. Medical ULTRA) 29 Branch mg iron- 1 mg-200 mg Cap PNV 67-iron 2019-0 Yes [id number] 1{each} Take 1 [facility] ps-folate 4-05 Each by ity of no.1-dha 00:00: mouth [place] (VITAFOL 00 daily. Medical ULTRA) 29 Branch mg iron- 1 mg-200 mg Cap PNV 67-iron 2019-0 Yes [id number] 1{each} Take 1 [facility] ps-folate 4-05 Each by ity of no.1-dha 00:00: mouth [place] (VITAFOL 00 daily. Medical ULTRA) 29 Branch mg iron- 1 mg-200 mg Cap PNV 67-iron 2019- Yes [id number] 1{each} Take 1 [facility] ps-folate 4-05 Each by ity of no.1-dha 00:00: mouth [place] (VITAFOL 00 daily. Medical ULTRA) 29 Branch mg iron- 1 mg-200 mg Cap PNV 67-iron 2019-0 Yes [id number] 1{each} Take 1 [facility] ps-folate 4-05 Each by ity of no.1-dha 00:00: mouth [place] (VITAFOL 00 daily. Medical ULTRA) 29 Branch mg iron- 1 mg-200 mg Cap PNV 67-iron 2019- Yes [id number] 1{each} Take 1 [facility] ps-folate 4-05 Each by ity of no.1-dha 00:00: mouth [place] (VITAFOL 00 daily. Medical ULTRA) 29 Branch mg iron- 1 mg-200 mg Cap PNV 67-iron 2019-0 Yes [id number] 1{each} Take 1 Univers ps-folate 4-05 Each by ity of no.1-dha 00:00: mouth [place] (VITAFOL 00 daily. Medical ULTRA) 29 Branch mg iron- 1 mg-200 mg Cap PNV 67-iron 2019-0 Yes [id number] 1{each} Take 1 [facility] ps-folate 4-05 Each by ity of no.1-dha 00:00: mouth [place] (VITAFOL 00 daily. Medical ULTRA) 29 Branch mg iron- 1 mg-200 mg Cap PNV 67-iron 2019-0 Yes [id number] 1{each} Take 1 Univers ps-folate 4-05 Each by ity of no.1-dha 00:00: mouth [place] (VITAFOL 00 daily. Medical ULTRA) 29 Branch mg iron- 1 mg-200 mg Cap PNV 67-iron 2019-0 Yes [id number] 1{each} Take 1 Univers ps-folate 4-05 Each by ity of no.1-dha 00:00: mouth [place] (VITAFOL 00 daily. Medical ULTRA) 29 Branch mg iron- 1 mg-200 mg Cap PNV 67-iron 20190 Yes [id number] 1{each} Take 1 Univers ps-folate 4-05 Each by ity of no.1-dha 00:00: mouth [place] (VITAFOL 00 daily. Medical ULTRA) 29 Branch mg iron- 1 mg-200 mg Cap PNV 67-iron 0 Yes [id number] 1{each} Take 1 Univers ps-folate 4-05 Each by ity of no.1-dha 00:00: mouth [place] (VITAFOL 00 daily. Medical ULTRA) 29 Branch mg iron- 1 mg-200 mg Cap PNV 67-iron 2018-0 Yes [id number] 1{each} Take 1 Univers ps-folate 4-05 Each by ity of no.1-dha 00:00: mouth [place] (VITAFOL 00 daily. Medical ULTRA) 29 Branch mg iron- 1 mg-200 mg Cap PNV 67-iron 2018-0 Yes [id number] 1{each} Take 1 Univers ps-folate 4-05 Each by ity of no.1-dha 00:00: mouth [place] (VITAFOL 00 daily. Medical ULTRA) 29 Branch mg iron- 1 mg-200 mg Cap PNV 67-iron 2019-0 2021- No [id number] 1{each} Take 1 Univers ps-folate 4-05 05-12 Each by ity of no.1-dha 00:00: 00:00 mouth [place] (VITAFOL 00 :00 daily. Medical ULTRA) 29 Branch mg iron- 1 mg-200 mg Cap Immunizations Ordered Filled Immunization Date Status Comments [facility] e Immunization Name Name TDAP (ADACEL) 2018-10-15 Completed University of VACCINE 00:00:00 [facility] TDAP (ADACEL) 2018-10-15 Completed University of VACCINE 00:00:00 [facility] TDAP (ADACEL) 2018-10-15 Completed University of VACCINE 00:00:00 [facility] TDAP (ADACEL) 2018-10-15 Completed University of VACCINE 00:00:00 [facility] TDAP (ADACEL) 2018-10-15 Completed University of VACCINE 00:00:00 [facility] TDAP (ADACEL) 2018-10-15 Completed University of VACCINE 00:00:00 [facility] TDAP (ADACEL) 2018-10-15 Completed University of VACCINE 00:00:00 [facility] TDAP (ADACEL) 2018-10-15 Completed University of VACCINE 00:00:00 [facility] TDAP (ADACEL) 2018-10-15 Completed University of VACCINE 00:00:00 [facility] TDAP (ADACEL) 2018-10-15 Completed University of VACCINE 00:00:00 [facility] TDAP (ADACEL) 2018-10-15 Completed University of VACCINE 00:00:00 [facility] TDAP (ADACEL) 2018-10-15 Completed University of VACCINE 00:00:00 [facility] TDAP (ADACEL) 2018-10-15 Completed University of VACCINE 00:00:00 [facility] TDAP (ADACEL) 2018-10-15 Completed University of VACCINE 00:00:00 [facility] TDAP (ADACEL) 2018-10-15 Completed University of VACCINE 00:00:00 [facility] TDAP (ADACEL) 2018-10-15 Completed University of VACCINE 00:00:00 [facility] TDAP (ADACEL) 2018-10-15 Completed University of VACCINE 00:00:00 [facility] TDAP (ADACEL) 2018-10-15 Completed University of VACCINE 00:00:00 [facility] TDAP (ADACEL) 2018-10-15 Completed [facility] of VACCINE 00:00:00 [facility] TDAP (ADACEL) 2018-10-15 Completed [facility] of VACCINE 00:00:00 [facility] TDAP (ADACEL) 2018-10-15 Completed [facility] of VACCINE 00:00:00 [facility] TDAP (ADACEL) 2018-10-15 Completed [facility] of VACCINE 00:00:00 [facility] TDAP (ADACEL) 2018-10-15 Completed [facility] of VACCINE 00:00:00 [facility] TDAP (ADACEL) 2018-10-15 Completed [facility] of VACCINE 00:00:00 [facility] TDAP (ADACEL) 2018-10-15 Completed [facility] of VACCINE 00:00:00 [facility] TDAP (ADACEL) 2018-10-15 Completed University of VACCINE 00:00:00 [facility] TDAP (ADACEL) 2018-10-15 Completed University of VACCINE 00:00:00 [facility] TDAP (ADACEL) 2018-10-15 Completed University of VACCINE 00:00:00 [facility] TDAP (ADACEL) 2018-10-15 Completed University of VACCINE 00:00:00 [facility] TDAP (ADACEL) 2018-10-15 Completed University of VACCINE 00:00:00 [facility] TDAP (ADACEL) 2018-10-15 Completed University of VACCINE 00:00:00 [facility] TDAP (ADACEL) 2018-10-15 Completed University of VACCINE 00:00:00 [facility] TDAP (ADACEL) 2018-10-15 Completed University of VACCINE 00:00:00 [facility] TDAP (ADACEL) 2018-10-15 Completed University of VACCINE 00:00:00 [facility] TDAP (ADACEL) 2018-10-15 Completed University of VACCINE 00:00:00 [facility] TDAP (ADACEL) 2018-10-15 Completed University of VACCINE 00:00:00 [facility] TDAP (ADACEL) 2018-10-15 Completed University of VACCINE 00:00:00 [facility] TDAP (ADACEL) 2018-10-15 Completed University of VACCINE 00:00:00 [facility] TDAP (ADACEL) 2018-10-15 Completed University of VACCINE 00:00:00 [facility] TDAP (ADACEL) 2018-10-15 Completed University of VACCINE 00:00:00 [facility] TDAP (ADACEL) 2018-10-15 Completed University of VACCINE 00:00:00 [facility] Vital Signs Vital Name Observation Time Observation Value Comments Source Systolic blood 2021-08-26 19:45:00 122 mm[Hg] Univer sity of pressure [facility] Diastolic blood 2021-08-26 19:45:00 68 mm[Hg] Unive rsity of pressure [place] [facility] Heart rate 2021-08-26 19:45:00 80 /min [facility] [place] [facility] Body temperature 2021-08-26 19:45:00 36.78 Radha [facility] ers[facility] [place] [facility] Respiratory rate 2021-08-26 19:45:00 18 /min [facility] ers[facility] [place] [facility] Oxygen saturation in 2021-08-26 19:45:00 95 /min University of Arterial blood by [place] [employer] [facility] oxim[facility] Branch Body height 2021-08-24 11:01:00 167.6 cm [facility] [place] [facility] Body weight 2021-08-24 11:01:00 81.647 kg [facility] [place] [facility] BMI 2021-08-24 11:01:00 29.05 kg/m2 [facility] [place] [facility] Systolic blood 2019-01-01 14:00:00 124 mm[Hg] Univer sity of pressure [place] [facility] Diastolic blood 2019-01-01 14:00:00 85 mm[Hg] Unive rsity of pressure [place] [facility] Heart rate 2019-01-01 14:00:00 60 /min [facility] [place] [facility] Respiratory rate 2019-01-01 14:00:00 18 /min [facility] ersity [facility] [place] [facility] Oxygen saturation in 2019-01-01 14:00:00 98 /min [facility] of Arterial blood by [place] [employer] [facility] P[facility]xim[facility] Body temperature 2019-01-01 [...] 98 /min [facility] of Arterial blood by [place] [employer] [facility] Pulse oxim[facility] Branch Body temperature 2019-01-01 13:15:00 36.78 Radha [facility] [place] [facility] Body weight 2019-01-01 03:07:00 101.651 kg [facility] [place] [facility] BMI 2019-01-01 03:07:00 36.17 kg/m2 [facility] [place] [facility] Systolic blood 2018-12-31 20:26:00 162 mm[Hg] Univer sity of pressure [place] [facility] Diastolic blood 2018-12-31 20:26:00 90 mm[Hg] Unive rsity of pressure [place] [facility] Heart rate 2018-12-31 20:21:00 67 /min [facility] [place] [facility] Body temperature 2018-12-31 20:21:00 37.06 Radha [facility] [place] [facility] Respiratory rate 2018-12-31 20:21:00 16 /min [facility] [place] [facility] Body height 2018-12-31 20:21:00 167.6 cm [facility] [place] [facility] Body weight 2018-12-31 20:21:00 102.116 kg [facility] [place] [facility] BMI 2018-12-31 20:21:00 36.34 kg/m2 [facility] [place] [facility] Systolic blood 2018-12-31 20:26:00 162 mm[Hg] Univer sity of pressure [place] [facility] Diastolic blood 2018-12-31 20:26:00 90 mm[Hg] Unive rsity of pressure [place] [facility] Heart rate 2018-12-31 20:21:00 67 /min [facility] [place] [facility] Body temperature 2018-12-31 20:21:00 37.06 Radha [facility] [place] [facility] Respiratory rate 2018-12-31 20:21:00 16 /min [facility] [place] [facility] Body height 2018-12-31 20:21:00 167.6 [...] 2018-12-29 05:30:00 52 /min [facility] [place] [facility] Respiratory rate 2018-12-29 05:30:00 15 /min [facility] [place] [facility] Oxygen saturation in 2018-12-29 05:30:00 98 /min [facility] of Arterial blood by [facility] Pulse oximetry Branch Body temperature 2018-12-29 00:43:00 37.17 Radha [facility] [place] [facility] Body height 2018-12-29 00:43:00 167.6 cm [facility] [place] [facility] Body weight 2018-12-29 00:43:00 108.863 kg [facility] [place] [facility] BMI 2018-12-29 00:43:00 38.74 kg/m2 [facility] [place] [facility] Systolic blood 2018-12-29 05:30:00 133 mm[Hg] Univer sity of pressure [place] [facility] Diastolic blood 2018-12-29 05:30:00 77 mm[Hg] Unive rsity of pressure [place] [facility] Heart rate 2018-12-29 05:30:00 52 /min [facility] [place] [facility] Respiratory rate 2018-12-29 05:30:00 15 /min [facility] [place] [facility] Oxygen saturation in 2018-12-29 05:30:00 98 /min [facility] of Arterial blood by [facility] Pulse oximetry Branch Body temperature 2018-12-29 00:43:00 37.17 Radha [facility] [place] [facility] Body height 2018-12-29 00:43:00 167.6 cm [facility] [place] [facility] Body weight 2018-12-29 00:43:00 108.863 kg [facility] [place] [facility] BMI 2018-12-29 00:43:00 38.74 kg/m2 [facility] [place] [facility] Systolic blood 2018-12-28 18:47:00 172 mm[Hg] Univer sity of pressure [place] [facility] Diastolic blood 2018-12-28 18:47:00 90 mm[Hg] Unive rsity of pressure [place] [facility] Heart rate 2018-12-28 18:47:00 52 /min [facility] [place] [facility] Body temperature 2018-12-28 18:32:00 36.89 Radha [facility] [place] [facility] Respiratory rate 2018-12-28 18:32:00 16 /min [facility] [place] [facility] Body height 2018-12-28 18:32:00 165.1 cm [facility] [place] [facility] Body weight 2018-12-28 18:32:00 109.118 kg [facility] [place] [facility] BMI 2018-12-28 18:32:00 40.03 kg/m2 [facility] [place] [facility] Systolic blood 2018-12-28 18:47:00 172 mm[Hg] Univer sity of pressure [place] [facility] Diastolic blood 2018-12-28 18:47:00 90 mm[Hg] Unive rsity of pressure [place] [facility] Heart rate 2018-12-28 18:47:00 52 /min [facility] [place] [facility] Body temperature 2018-12-28 18:32:00 36.89 Radha [facility] [place] [facility] Respiratory rate 2018-12-28 18:32:00 16 /min [facility] [place] [facility] Body height 2018-12-28 18:32:00 165.1 cm [facility] [place] [facility] Body weight 2018-12-28 18:32:00 109.118 kg [facility] [place] [facility] BMI 2018-12-28 18:32:00 40.03 kg/m2 [facility] [place] [facility] Body temperature 2018-12-24 13:00:00 36.61 Radha [facility] [place] [facility] Systolic blood 2018-12-24 09:00:00 119 mm[Hg] Univer sity of pressure [place] [facility] Diastolic blood 2018-12-24 09:00:00 79 mm[Hg] Unive rsity of pressure [place] [facility] Heart rate 2018-12-24 09:00:00 69 /min [facility] [place] [facility] Respiratory rate 2018-12-24 09:00:00 18 /min [facility] [place] [facility] Oxygen saturation in 2018-12-24 09:00:00 99 /min University Arterial blood by [facility] Pulse oximetry Branch Body height 2018-12-21 15:30:00 165.1 cm [facility] [place] [facility] Body weight 2018-12-21 15:30:00 108.636 kg [facility] [place] [facility] BMI 2018-12-21 15:30:00 39.85 kg/m2 [facility] [place] [facility] Body temperature 2018-12-24 13:00:00 36.61 Radha [facility] [place] [facility] Systolic blood 2018-12-24 09:00:00 119 mm[Hg] Univer sity of pressure [place] [facility] Diastolic blood 2018-12-24 09:00:00 79 mm[Hg] Unive rsity of pressure [place] [facility] Heart rate 2018-12-24 09:00:00 69 /min [facility] [place] [facility] Respiratory rate 2018-12-24 09:00:00 18 /min Univ ersity of [facility] Oxygen saturation in 2018-12-24 09:00:00 99 /min University Arterial blood by [facility] Pulse oximetry Branch Body height 2018-12-21 15:30:00 165.1 cm [facility] [place] [facility] [place] Body weight 2018-12-21 15:30:00 108.636 kg [facility] [place] [facility] [place] BMI 2018-12-21 15:30:00 39.85 kg/m2 Universi ty of [facility] Systolic blood 2018-12-20 15:34:00 113 mm[Hg] Univer sity of pressure [place] [facility] Diastolic blood 2018-12-20 15:34:00 72 mm[Hg] Unive rsity of pressure [place] [facility] Heart rate 2018-12-20 15:34:00 90 /min [facility] [place] [facility] Body temperature 2018-12-20 15:34:00 36.78 Radha [facility] [place] [facility] Respiratory rate 2018-12-20 15:34:00 16 /min [facility] [place] [facility] Body weight 2018-12-20 15:34:00 108.636 kg [facility] [place] [facility] BMI 2018-12-20 15:34:00 39.85 kg/m2 [facility] [place] [facility] Systolic blood 2018-12-20 15:34:00 113 mm[Hg] Univer sity of pressure [place] [facility] Diastolic blood 2018-12-20 15:34:00 72 mm[Hg] Unive rsity of pressure [place] [facility] Heart rate 2018-12-20 15:34:00 90 /min [facility] [place] [facility] Body temperature 2018-12-20 15:34:00 36.78 Radha [facility] [place] [facility] Respiratory rate 2018-12-20 15:34:00 16 /min [facility] [place] [facility] Body weight 2018-12-20 15:34:00 108.636 kg [facility] [place] [facility] BMI 2018-12-20 15:34:00 39.85 kg/m2 [facility] [place] [facility] Systolic blood 2018-12-18 17:58:00 119 mm[Hg] Univer sity of pressure [place] [facility] Diastolic blood 2018-12-18 17:58:00 70 mm[Hg] Unive rsity of pressure [facility] Heart rate 2018-12-18 17:58:00 80 /min [facility] [place] [facility] Body temperature 2018-12-18 17:58:00 36.78 Radha [facility] [place] [facility] Respiratory rate 2018-12-18 17:58:00 16 /min [facility] [place] [facility] Body height 2018-12-18 17:58:00 165.1 cm [facility] [place] [facility] Body weight 2018-12-18 17:58:00 109.43 kg [facility] [place] [facility] BMI 2018-12-18 17:58:00 40.15 kg/m2 [facility] [place] [facility] Systolic blood 2018-12-18 17:58:00 119 mm[Hg] Univer sity of pressure [facility] Diastolic blood 2018-12-18 17:58:00 70 mm[Hg] Unive rsity of pressure [facility] Heart rate 2018-12-18 17:58:00 80 /min [facility] [place] [facility] Body temperature 2018-12-18 17:58:00 36.78 Radha [facility] [place] [facility] Respiratory rate 2018-12-18 17:58:00 16 /min [facility] [place] [facility] Body height 2018-12-18 17:58:00 165.1 cm [facility] [place] [facility] Body weight 2018-12-18 17:58:00 109.43 kg [facility] [place] [facility] BMI 2018-12-18 17:58:00 40.15 kg/m2 [facility] [place] [facility] Systolic blood 2018-12-13 18:42:00 110 mm[Hg] Univer sity of pressure [place] [facility] Diastolic blood 2018-12-13 18:42:00 56 mm[Hg] Unive rsity of pressure [facility] Heart rate 2018-12-13 18:42:00 74 /min [facility] [place] [facility] Body temperature 2018-12-13 18:42:00 36.72 Radha [facility] [place] [facility] Respiratory rate 2018-12-13 18:42:00 18 /min [facility] [place] [facility] Body height 2018-12-13 18:42:00 165.1 cm [facility] [place] [facility] Body weight 2018-12-13 18:42:00 109.544 kg [facility] [place] [facility] BMI 2018-12-13 18:42:00 40.19 kg/m2 [facility] Systolic blood 2018-12-13 18:42:00 110 mm[Hg] Univer sity of pressure [place] [facility] Diastolic blood 2018-12-13 18:42:00 56 mm[Hg] Unive rsity of pressure [facility] Heart rate 2018-12-13 18:42:00 74 /min [facility] [place] [facility] Body temperature 2018-12-13 18:42:00 36.72 Radha [facility] [place] [facility] Respiratory rate 2018-12-13 18:42:00 18 /min [facility] [place] [facility] Body height 2018-12-13 18:42:00 165.1 cm [facility] [place] [facility] Body weight 2018-12-13 18:42:00 109.544 kg [facility] [place] [facility] BMI 2018-12-13 18:42:00 40.19 kg/m2 [facility] [place] [facility] Systolic blood 2018-12-10 15:42:00 98 mm[Hg] Univer sity of pressure [facility] Diastolic blood 2018-12-10 15:42:00 66 mm[Hg] Unive rsity of pressure [facility] Heart rate 2018-12-10 15:42:00 71 /min [facility] [place] [facility] Body temperature 2018-12-10 15:42:00 37.06 Radha [facility] [place] [facility] Respiratory rate 2018-12-10 15:42:00 16 /min [facility] [place] [facility] Body height 2018-12-10 15:42:00 165.1 [...] 2018-12-10 15:42:00 16 /min [facility] Body height 2018-12-10 15:42:00 165.1 cm [facility] [place] [facility] Body weight 2018-12-10 15:42:00 109.77 kg [facility] [place] [facility] BMI 2018-12-10 15:42:00 40.27 kg/m2 [facility] Systolic blood 2018-12-06 15:34:00 122 mm[Hg] Univer sity of pressure [facility] Diastolic blood 2018-12-06 15:34:00 64 mm[Hg] Unive rsity of pressure [facility] Heart rate 2018-12-06 15:34:00 95 /min [facility] [place] [facility] Body temperature 2018-12-06 15:34:00 36.89 Radha [facility] Respiratory rate 2018-12-06 15:34:00 16 /min [facility] Body height 2018-12-06 15:34:00 165.1 [...] 2018-12-06 15:34:00 36.89 Radha [facility] Respiratory rate 2018-12-06 15:34:00 16 /min [facility] Body height 2018-12-06 15:34:00 165.1 cm [facility] [place] [facility] Body weight 2018-12-06 15:34:00 111.33 kg [facility] ty of [place] [facility] Branch BMI 2018-12-06 15:34:00 40.84 kg/m2 [facility] [place] [facility] Heart rate 2018-12-03 21:30:00 77 /min [facility] [place] [facility] Oxygen saturation in 2018-12-03 21:30:00 99 /min [facility] of Arterial blood by [facility] Pulse oximetry Branch Systolic blood 2018-12-03 19:12:00 139 mm[Hg] [facility] [place] [facility] Diastolic blood 2018-12-03 19:12:00 74 mm[Hg] [facility]ive [facility] [place] [facility] Body temperature 2018-12-03 19:12:00 36.83 Radha [facility] [place] [facility] Respiratory rate 2018-12-03 19:12:00 18 /min [facility] [place] [facility] Body height 2018-12-03 19:12:00 167.6 cm [facility] [place] [facility] Body weight 2018-12-03 19:12:00 111.494 kg [facility] [place] [facility] BMI 2018-12-03 19:12:00 39.69 kg/m2 [facility] [place] [facility] Heart rate 2018-12-03 21:30:00 77 /min [facility] [place] [facility] Oxygen saturation in 2018-12-03 21:30:00 99 /min [facility] of Arterial blood by [facility] Pulse oximetry Branch Systolic blood 2018-12-03 19:12:00 139 mm[Hg] [facility] [place] [facility] Diastolic blood 2018-12-03 19:12:00 74 mm[Hg] [facility]ive [facility] [place] [facility] Body temperature 2018-12-03 19:12:00 36.83 Radha [facility] [place] [facility] Respiratory rate 2018-12-03 19:12:00 18 /min [facility] [place] [facility] Body height 2018-12-03 19:12:00 167.6 cm [facility] [place] [facility] Body weight 2018-12-03 19:12:00 111.494 kg [facility] [place] [facility] BMI 2018-12-03 19:12:00 39.69 kg/m2 [facility] [place] [facility] Systolic blood 2018-12-03 15:02:00 113 [...] 2018-11-29 17:58:00 16 /min [facility] [place] [facility] Body height 2018-11-29 17:58:00 167.6 [...] 2018-11-29 17:58:00 37.06 Radha [facility] [place] [facility] Respiratory rate 2018-11-29 17:58:00 16 /min [facility] [place] [facility] Body height 2018-11-29 17:58:00 167.6 cm [facility] [place] [facility] Body weight 2018-11-29 17:58:00 111.273 kg [facility] [place] [facility] BMI 2018-11-29 17:58:00 39.59 kg/m2 [facility] [place] [facility] Systolic blood 2018-11-26 15:17:00 116 mm[Hg] [facility] [place] [facility] Diastolic blood 2018-11-26 15:17:00 76 mm[Hg] [facility] [place] [facility] Heart rate 2018-11-26 15:17:00 84 /min [facility] [place] [facility] Body temperature 2018-11-26 15:17:00 37 Radha [facility] [place] [facility] Respiratory rate 2018-11-26 15:17:00 16 /min [facility] [place] [facility] Body height 2018-11-26 15:17:00 167.6 cm [facility] [place] [facility] Body weight 2018-11-26 15:17:00 109.827 kg [facility] [place] [facility] BMI 2018-11-26 15:17:00 39.08 kg/m2 [facility] [place] [facility] Systolic blood 2018-11-22 13:11:00 108 mm[Hg] [facility] [place] [facility] Diastolic blood 2018-11-22 13:11:00 62 mm[Hg] [facility] [place] [facility] Heart rate 2018-11-22 13:11:00 66 /min [facility] [place] [facility] Body temperature 2018-11-22 13:11:00 36.72 Radha [facility] [place] [facility] Respiratory rate 2018-11-22 13:11:00 16 /min [facility] [place] [facility] Body height 2018-11-22 13:11:00 167.6 cm [facility] [place] [facility] Body weight 2018-11-22 13:11:00 111.131 kg [facility] [place] [facility] BMI 2018-11-22 13:11:00 39.54 kg/m2 [facility] Heart rate 2018-11-19 20:45:00 72 /min [facility] Oxygen saturation in 2018-11-19 20:15:00 100 /min University Arterial blood by [facility] Pulse oximetry Branch Systolic blood 2018-11-19 17:41:00 135 mm[Hg] [facility] [place] [facility] [place] Diastolic blood 2018-11-19 17:41:00 65 mm[Hg] Unive rsity of pressure [facility] Body temperature 2018-11-19 17:41:00 36.83 Radha Univ [facility]ity of [facility] Respiratory rate 2018-11-19 17:41:00 16 /min Univ ersity of [facility] Body height 2018-11-19 17:41:00 167.6 cm [facility] [place] [facility] Body weight 2018-11-19 17:41:00 109.77 kg [facility] [place] [facility] BMI 2018-11-19 17:41:00 39.06 kg/m2 [facility] Systolic blood 2018-11-19 14:28:00 118 mm[Hg] Univer sity of pressure [facility] Diastolic blood 2018-11-19 14:28:00 64 mm[Hg] Unive rsity of pressure [facility] Heart rate 2018-11-19 14:28:00 62 /min [facility]i [facility] of [facility] Body temperature 2018-11-19 14:28:00 36.89 Radha Univ [facility] of [facility] Respiratory rate 2018-11-19 14:28:00 16 /min Univ ersity of [facility] Body height 2018-11-19 14:28:00 167.6 cm [facility] [place] [facility] Body weight 2018-11-19 14:28:00 109.941 kg [facility] [place] [facility] BMI 2018-11-19 14:28:00 39.12 kg/m2 [facility] Systolic blood 2018-11-15 19:28:00 123 mm[Hg] [facility] [place] [facility] Diastolic blood 2018-11-15 19:28:00 68 mm[Hg] Unive rsity of pressure [facility] Heart rate 2018-11-15 19:28:00 73 /min Universi ty of [facility] Body temperature 2018-11-15 19:28:00 36.89 Radha Univ ersity of [facility] Respiratory rate 2018-11-15 19:28:00 16 /min Univ ersity of [facility] Body height 2018-11-15 19:28:00 167.6 cm Universi ty of [facility] Body weight 2018-11-15 19:28:00 110.309 kg Universi ty of [facility] BMI 2018-11-15 19:28:00 39.25 kg/m2 Universi ty of [facility] Systolic blood 2018-11-12 15:53:00 102 mm[Hg] Univer sity of pressure [facility] Diastolic blood 2018-11-12 15:53:00 64 mm[Hg] Unive rsity of pressure [facility] Heart rate 2018-11-12 15:53:00 65 /min Universi ty of [facility] Body temperature 2018-11-12 15:53:00 37.39 Radha Univ ersity of [facility] Respiratory rate 2018-11-12 15:53:00 16 /min Univ ersity of [facility] Body height 2018-11-12 15:53:00 167.6 cm Universi ty of [facility] Body weight 2018-11-12 15:53:00 109.941 kg Universi ty of [facility] BMI 2018-11-12 15:53:00 39.12 kg/m2 Universi ty [facility] Procedures Procedure Date / Time Performing Clinician Source Performed EXTERNAL PROVIDER RECORDS 2021-09-04 05:01:00 Doctor Unassigned, [facility] Amado [facility] CBC WITH DIFF 2021-08-26 11:59:00 Gianfranco [facility] PAP SMEAR-LIQUID BASED-CP 2021-08-25 23:14:00 Prashanth Tyler [facility] US PELVIS COMPLETE WITH 2021-08-25 21:23:27 Gianfranco Tyler [facility] WITH DIFF 2021-08-25 11:26:00 Cathie [facility] PREPARE PACKED RBC 2021-08-25 05:04:47 Cathie [facility] TRANSFUSE PACKED RBC 2021-08-25 03:15:00 Cathie [facility] PREPARE PACKED RBC 2021-08-25 03:06:35 Shari [facility] HEPATITIS C VIRUS (HCV) BY 2021-08-24 22:55:00 Lyssa Hernandez [facility] QUANTITATIVE NAAT [facility] FERRITIN SERUM 2021-08-24 22:54:00 Mary [facility] IRON 2021-08-24 22:54:00 Mary [facility] TRANSFERRIN 2021-08-24 22:54:00 Gianfranco [facility] TOTAL IRON BINDING CAPACITY 2021-08-24 22:54:[address] [facility] COMP. METABOLIC PANEL 2021-08-24 22:54:00 Linnette [facility] ([id number]) [facility] HCV ANTIBODY 2021-08-24 22:54:00 Lyssa Hernandez [facility] HB DIRECT ANTIGLOBULIN 2021-08-24 20:36:31 Shari Perry [facility] (POLY SPEC [facility] URINALYSIS 2021-08-24 19:03:00 [facility] TRANSFUSE PACKED RBC 2021-08-24 15:20:00 Shari Perry [facility] EKG-12 LEAD 2021-08-24 15:11:07 Florencio Lr [facility] HB ABO GROUPING 2021-08-24 09:02:00 [facility] CBC WITH DIFF 2021-08-24 08:59:00 [facility] US LOWER EXTREMITY VEIN 2019-01-01 07:50:21 K[facility] WITH COMPRESSION BILATERAL Liss Rausch [facility] (ONLY FOR RULE OUT DVT) [facility] URINALYSIS 2019-01-01 04:17:00 Josué [facility] PROTEIN CREAT RATIO URINE 2019-01-01 04:17:00 Alo Moses [facility] SGOT (ASPARTATE AMINO 2019-01-01 04:16:00 Alo Moses [facility] TRANSFER) Medical Branch CREATININE 2019-01-01 04:16:00 Josué [facility] ALANINE AMINO 2019-01-01 04:16:00 [facility] LACTATE DEHYDROGENASE 2019-01-01 04:16:00 Josué [facility] URIC ACID 2019-01-01 04:16:00 Josué [facility] CBC WITH DIFFERENTIAL 2019-01-01 04:16:00 Josué [facility] POCT URINALYSIS 2018-12-31 20:24:00 [facility] URINALYSIS 2018-12-29 01:39:00 Alla Alford [facility] LIPASE 2018-12-29 01:37:00 Alla Alford [facility] MAGNESIUM 2018-12-29 01:37:00 Alla Alford [facility] COMP. METABOLIC PANEL 2018-12-29 01:37:00 Alla Alford [facility] ([id number]) [facility] CBC WITH DIFFERENTIAL 2018-12-29 01:37:00 Alla Alford [facility] PROTHROMBIN TIME / INR 2018-12-29 01:37:00 Alla Alford [facility] N-TERMINAL PRO-BNP 2018-12-29 01:37:00 Alla [facility] NOTICE OF PRIVACY PRACTICES 2018-12-29 00:16:20 Doctor Jessica willis, [facility] CONSENT/REFUSAL FOR 2018-12-29 00:16:07 Doctor Unassigned, [facility] DIAGNOSIS AND TREATMENT [facility] POCT URINALYSIS 2018-12-28 18:48:00 [facility] CBC WITH DIFFERENTIAL 2018-12-24 09:13:00 Gilson Upton [facility] CBC WITH DIFFERENTIAL 2018-12-22 15:41:00 Bob La [facility] LAB ON A CART 2018-12-21 20:22:00 Elizabeth Mccray [facility] THROMBELASTOGRAPH CITRATED Medic [facility] KAOLIN W/HEPARIN CBC WITH DIFFERENTIAL 2018-12-21 16:10:00 Maicol Ramírez [facility] VENOUS CORD GAS 2018-12-21 16:07:00 Dl [facility] [address] o f [facility] TRANSFUSE PLATELETS 2018-12-21 15:07:02 Selin [facility] TRANSFUSE PLATELETS 2018-12-21 15:04:33 Selin kvng [facility] SECTION 2018-12-21 14:43:00 [facility] PREPARE PLATELETS 2018-12-21 13:34:52 Selin kvng [facility] PREPARE PLATELETS 2018-12-21 13:34:51 Luca Smallwood [facility] LAB ON A CART 2018-12-21 13:18:00 Marcela Lujan [facility] THROMBELASTOGRAPH CITRATED Medic [facility] KAOLIN CBC WITH DIFFERENTIAL 2018-12-21 03:45:00 Alison Zamorano [facility] TYPE AND SCREEN 2018-12-21 03:24:00 Antonio Sharma [facility] RHO (D) IMMUNE GLOBULIN 2018-12-21 03:24:00 Gilson Upton [facility] HEPATITIS B SURFACE ANTIGEN 2018-12-21 03:16:00 Alicia Sharma [facility] GALV ONLY - SYPHILIS 2018-12-21 03:16:00 Antonio Sharma [facility] IGG/IGM [facility] NON-STRESS TEST 2018-12-20 16:12:39 Mila Ferguson [facility] POCT URINALYSIS 2018-12-20 15:39:00 [facility] NON-STRESS TEST 2018-12-18 19:31:53 Max Velarde [facility] POCT URINALYSIS 2018-12-18 18:02:00 [facility] NON-STRESS TEST 2018-12-13 19:28:18 [facility] NO SHOW OR MISSED 2018-12-13 18:26:00 Doctor Unapito, [facility] APPOINTMENT POLICY [facility] h ACKNOWLEDGEMENT SECOND AND THIRD TRIMESTER 2018-12-13 18:14:00 Mila Ferguson [facility] ULTRASOUND [facility] NON-STRESS TEST 2018-12-10 16:53:02 Jesse Woods [facility] POCT URINALYSIS 2018-12-10 15:44:00 Allie Miller [facility] NON-STRESS TEST 2018-12-06 21:10:03 Marycruz Quevedo [facility] CBC WITH DIFFERENTIAL 2018-12-06 16:40:00 Marycruz Quevedo [facility] GROUP B STREPTOCOCCUS BY 2018-12-06 16:40:00 Marycruz Quevedo [facility] PCR [facility] POCT URINALYSIS 2018-12-06 15:35:00 Allie Miller [facility] CONSENT/REFUSAL FOR 2018-12-03 18:58:48 Doctor Unassgeorge, [facility] DIAGNOSIS AND TREATMENT Amado [facility] ASSIGNMENT OF BENEFITS 2018-12-03 18:58:36 Doctor Unassgeorge, [facility] Name [facility] NON-STRESS TEST 2018-11-29 18:37:28 Mila Ferguson [facility] POCT URINALYSIS 2018-11-29 17:59:00 Allie Miller [facility] NON-STRESS TEST 2018-11-26 17:49:39 Inga Moore [facility] POCT URINALYSIS 2018-11-26 15:18:00 Allie Miller [facility] SECOND AND THIRD TRIMESTER 2018-11-22 16:13:00 Mila Ferguson [facility] NON-STRESS TEST 2018-11-22 14:36:42 Rimma Duran [facility] POCT URINALYSIS 2018-11-22 13:14:00 Allie Miller [facility] CONSENT/REFUSAL FOR 2018-11-19 17:28:50 Doctor Unassigned, [facility] DIAGNOSIS AND TREATMENT Amado [facility] ASSIGNMENT OF BENEFITS 2018-11-19 17:28:38 Doctor Unassigned, [facility] Amado [facility] NON-STRESS TEST 2018-11-19 14:56:33 Alison Reis [facility] POCT URINALYSIS 2018-11-19 14:29:00 Allie Miller [facility] NON-STRESS TEST 2018-11-15 20:16:30 Modesto De La Rosa [facility] POCT URINALYSIS 2018-11-15 19:31:00 Allie Miller [facility] NON-STRESS TEST 2018-11-12 17:13:21 Inga Moore [facility] [place] POCT URINALYSIS 2018-11-12 15:55:00 Allie Miller [facility] Encounters Start End Encounter Admission Attending Care Care Encounter Source Date/Time Date/Time Type Type Clinicians Facility Department ID 2020-05-03 Inpatient UR Maria G, [facility] [id number] [facility] 03:53:00 Casey [id number] [facility] 2021-12-09 2021-12-09 Outpatient [facility] [id number] [facility] 09:30:00 09:30:00 [id number] ity of [facility] 2021-09-14 2021-09-14 Outpatient R [facility] [id number] Univers 14:00:00 14:00:00 [id number] ity of [facility] 2021-09-14 2021-09-14 [facility] [id number] Univers 14:00:00 14:00:00 ZENON ity of [facility] 2021-09-04 2021-09-04 Orders Doctor JARAD 1.2.840.114 [id number] Univers 00:00:00 00:00:00 Only Unassigned, ISRA[place] 350.1.13.10 ity of [facility] 4.2.7.2.686 Eladio as [id number] [facility] 009 Branch 2021-08-27 2021-08-27 Transition MARY Richard 1.2.840.114 [id number] Univers 00:00:00 00:00:00 of Care Sandi ARCE 350.1.13.10 ity of [place].2.[place] [id number] [facility] 403 Branch 2021-08-24 2021-08-26 [facility] AS[facility] SUPERVISOR [id number] Univers 03:17:00 15:30:00 MATIAS ity [facility] 2021-08-24 2021-08-26 [facility] Be OC 1.2.840.114 [id number] Univers 03:17:00 15:30:00 Encounter Mati[place]amari WOOD 350.1.13.10 ity of [facility] 4.2.7.2.686 Eladio as [id number] [facility] 097 Branch 2021-05-04 2021-05-05 Inpatient EM Ta [facility].01 [id number] [facility] 01:14:00 14:01:00 Fatemeh [facility] 2021-05-04 2021-05-05 Inpatient EM Ta [facility].01 [id number] [facility] 01:14:00 14:01:00 Fatemeh [id number] [facility] [place] 2021-05-03 2021-05-03 Emergency EM Chelo Ram[facility]rez [facility] [id number] 31-20 [facility] 23:33:00 23:33:00 [id number] [facility] 2021-03-02 2021-03-02 Emergency X [facility] ERT [id number] Univers 22:11:00 22:41:00 ity [facility] 2020-08-25 2020-08-26 Outpatient E RENE [facility] [id number] Memoria 02:37:00 18:00:00 DEBRAPercy Oleary [facility] l 2020-07-06 2020-07-06 Patient Chato, [facility] 1.2.840.114 [id number] Univers 00:00:00 00:00:00 Outreach Birddanny WANG 350.1.13.10 i ty of [facility] 4.2.7.2.[place] NOEMYJOSAFAT [id number] [facility] 2019-07-13 2019-07-13 Nurse JARAD Douglas 1.2.840.114 [id number] 00:00:00 00:00:00 Triage Aracelisjonathan WOOD 350.1.13.10 HOSPITAL 4.2.7.2.686 [id number] 2019-07-13 2019-07-13 JARAD Santamaria 1.2.840.114 [id number] 00:00:00 00:00:00 Triage Melinda Leta CHAUDHARIY 350.1.13.10 [facility] 4.2.7.2.686 [id number] [id number] 2019-07-13 2019-07-13 Nurse JARAD Douglas 1.2.840.114 [id number] Univers 00:00:00 00:00:00 Triage Aracelis ISRAEL 350.1.13.10 it y of [facility] 4.2.7.2.686 Eladio as [id number] [address] 2019-07-13 2019-07-13 JARAD Santamaria 1.2.840.114 [id number] Univers 00:00:00 00:00:00 Triage Melinda D ISRAEL 350.1.13.10 i ty of [facility] 4.2.7.2.686 Eladio as [id number] [address] 2018-12-31 2019-01-01 [facility] [id number] 21:55:55 14:19:00 Encounter Jesse Mabel ISRAEL 350.1.13.10 [place] 4.2.7.2.686 [id number] [facility] 2018-12-31 2019-01-01 [facility] [id number] [facility] 21:55:55 14:19:00 Encounter Jesse WOOD 350.1.13.10 ity [facility] [place]2.7.2.[place] [id number] [address] 2018-12-31 2018-12-31 Nurse Visit, [facility] 1.2.840.114 [id number] 15:10:27 15:53:28 Visit Jerel CLIENT DELIVERY SPECIALIST 350.1.13.10 Nurse [facility] 4.2.7.2.686 MATERNAL [id number] & CHILD 107 [facility] 2018-12-31 2018-12-31 [facility] 1.2 .840.114 [id number] [facility] 15:10:27 15:53:28 Visit Allie Miller CLIENT DELIVERY SPECIALIST 350.1.13. 10 ity [facility] 4.2.7.2.686 Eladio as MATERNAL [id number] Med ical & CHILD [address] [place] [address] 2018-12-31 2018-12-31 Telephone AMANDA Duran 1.2.840.114 [id number] 00:00:00 00:00:00 Rimma Guadalupe CLIENT DELIVERY SPECIALIST 350.1.13.10 [facility] 4.2.7.2.686 MATERNAL [id number] & CHILD 107 [facility] 2018-12-31 2018-12-31 Telephone JARAD Upton 1.2.840.114 [id number] 00:00:00 00:00:00 Gilson WOOD 350.1.13.10 [facility] 4.2.7.2.686 [id number] [facility] 2018-12-31 2018-12-31 Telephone AMANDA Duran 1.2.840.114 [id number] Univers 00:00:00 00:00:00 Rimma Guadalupe CLIENT DELIVERY SPECIALIST 350.1.13.10 it y of [facility] 4.2.7.2.686 Eladio as MATERNAL [id number] [facility] ical & CHILD [address] [place] [address] 2018-12-31 2018-12-31 Telephone JARAD Upton 1.2.840.114 [id number] Univers 00:00:00 00:00:00 Gilson WOOD 350.1.13.10 i ty of [facility] 4.2.7.2.686 Eladio as [id number] [facility] 013 [place] 2018-12-28 2018-12-29 Emergency [facility], [facility] [id number] 19:29:15 00:59:00 Alla Lopez 350.1.13.10 [place] 4.2.7.2.686 [place] [id number] [facility] 2018-12-28 2018-12-29 Emergency [facility], [facility] [id number] [facility] 19:29:15 00:59:00 Alla [place] 350.1.13.10 ity of [place] 4.2.7.2.686 [facility] [id number] [address] 2018-12-28 2018-12-28 Nurse Visit, [facility] 1.2.840.114 [id number] 12:55:55 13:47:08 [facility] CLIENT DELIVERY SPECIALIST 350.1.13.10 Nurse [facility] 4.2.7.2.686 MATERNAL [id number] & CHILD [address] [place] [address] 2018-12-28 2018-12-28 Nurse Visit, [facility] Nurse [facility] 1.2 .840.114 [id number] [facility] 12:55:55 13:47:08 Visit Max Velarde CLIENT DELIVERY SPECIALIST 350.1.13.10 ity of [facility] 4.2.7.2.686 Eladio as MATERNAL [id number] [facility] ical & CHILD [address] [place] [address] 2018-12-20 2018-12-24 Hospital JARAD Lizama 1.2.840.114 [id number] 18:42:00 13:40:00 Encounter Ree WOOD 350.1.13.10 [place] 4.2.7.2.686 [id number] [facility] 2018-12-20 2018-12-24 [facility] JARAD Lizama 1.2.840.114 [id number] Univers 18:42:00 13:40:00 Encounter Ree WOOD 350.1.13.10 ity of [place].2.7.2.686 [place] [id number] [address] 2018-12-20 2018-12-20 Ip Attorney Ultrasound, [facility] 1.2.840.114 [id number] 11:12:37 11:42:37 Visit Ang-Mfm CLIENT DELIVERY SPECIALIST 350.1.13.10 REGIONAL 4.2.7.2.686 MATERNAL [id number] & CHILD 369 [facility] 2018-12-20 2018-12-20 Ip Attorney Ultrasound, Ang-Mfm [facility] 1.2 .840.114 [id number] [facility] 11:12:37 11:42:37 Visit Mila Ferguson CLIENT DELIVERY SPECIALIST 350.1.13.10 [facility] 4.2.7.2.686 [place] MATERNAL [id number] Med ical & CHILD 369 [facility] 2018-12-20 2018-12-20 Routine Risk, [facility] 1.2.840.114 [id number] 10:20:16 11:05:03 Ang-Rmchp-N CLIENT DELIVERY SPECIALIST 350.1.13.10 Visit p/High REGIONAL 4.2.7.2.686 MATERNAL [id number] & CHILD 107 [facility] 2018-12-20 2018-12-20 Routine Risk, Tws-Qdyys-Gf/High [facility] 1. 2.840.114 [id number] Univers 10:20:16 11:05:03 Ferguson Mila Iglesiasy CLIENT DELIVERY SPECIALIST 350.1.13.10 ity of Visit REGIONAL 4.2.7.2.686 Eladio as MATERNAL [id number] Med ical & CHILD 107 [facility] 2018-12-18 2018-12-18 Routine Velarde, [facility] 1.2.840.114 [id number] 12:50:29 14:00:55 Roshunda R CLIENT DELIVERY SPECIALIST 350.1.13.10 Visit REGIONAL 4.2.7.2.686 MATERNAL [id number] & CHILD 107 [facility] 2018-12-18 2018-12-18 Routine Velarde [facility] 1.2.840.114 [id number] Univers 12:50:29 14:00:55 Roshunda R CLIENT DELIVERY SPECIALIST 350.1.13.10 ity of Visit REGIONAL 4.2.7.2.686 Eladio as MATERNAL [id number] Med ical & CHILD [address] [place] [address] 2018-12-13 2018-12-13 Routine Pool, [facility] UNIVERSIT 1.2.840.114 [id number] 13:28:19 14:24:11 Resident Y HEALTH 350.1.13.10 Visit CLINICS [id number] 113 2018-12-13 2018-12-13 Routine Pool, [facility] Resident UNIVERSIT 1.2.8 40.114 [id number] Univers 13:28:19 14:24:11 TeresaInga HEALTH 350.1. 13.10 ity [facility] 4.2.7.2.686 Chacorta Barton [phone] [address] 2018-12-13 2018-12-13 Ip Attorney 2, [facility] UNIVERSIT 1.2.840.11 [id number] 12:48:28 13:23:20 Visit [facility] Room Y HEALTH 350.1.13.10 CLINICS 4.2.7.2.686 [id number] [facility] 2018-12-13 2018-12-13 Ip Attorney 2, [facility] Us Room UNIVERSIT 1 .2.840.114 [id number] Univers 12:48:28 13:23:20 Visit Inga Moore HEALTH 350.1.1 3.10 ity of Jesse Woods [facility] 4.2.7.2.686 [place] [id number] [place] [address] [place] 2018-12-13 2018-12-13 Orders Doctor ABRAHAM 1.2.840.114 [id number] 00:00:00 00:00:00 Only Unassigned, [place] 350.1.13.10 [facility] 4.2.7.2.686 [id number] 009 2018-12-13 2018-12-13 Orders Doctor JARAD 1.2.840.114 [id number] Univers 00:00:00 00:00:00 Only Unassigned, [place] 350.1.13.10 ity of [facility] 4.2.7.2.686 Eladio as [phone] [address] 2018-12-11 2018-12-11 Case JARAD Chris 1.2.840.114 [id number] 00:00:00 00:00:00 Management Ruba IS[place] 350.1.13.10 HOSPITAL 4.2.7.2.686 [id number] 013 2018-12-11 2018-12-11 Case JARAD Chris 1.2.840.114 [id number] Univers 00:00:00 00:00:00 Management Ruba ISRAEL 350.1.13.10 ity of HOSPITAL 4.2.7.2.686 Eladio as [phone] [address] 2018-12-10 2018-12-10 Routine Faculty, [facility] 1.2.840.114 [id number] 10:35:35 11:46:44 Ad Beachjayesh CLIENT DELIVERY SPECIALIST 350.1.13.10 Visit [facility] 4.2.7.2.686 MATERNAL [id number] & CHILD 107 [facility] 2018-12-10 2018-12-10 Routine Faculty, Ad [facility] 1.2 .840.114 [id number] [facility] 10:35:35 11:46:44 Jesse Woods CLIENT DELIVERY SPECIALIST 350.1.13.10 ity of Visit REGIONAL 4.2.7.2.686 Eladio as MATERNAL [phone] Med ical & CHILD 107 [facility] 2018-12-06 2018-12-06 Ip Attorney Ultrasound, [facility] 1.2.840.114 [id number] 11:40:06 12:10:06 [facility] DELIVERY SPECIALIST 350.1.13.10 [facility] 4.2.7.2.686 MATERNAL [phone] & CHILD 369 [facility] 2018-12-06 2018-12-06 Ip Attorney Ultrasound, Ad-Mfm [place] 1.2 .840.114 [id number] Univers 11:40:06 12:10:06 Visit Marycruz Quevedo CLIENT DELIVERY SPECIALIST 350.1.13.10 ity of REGIONAL 4.2.7.2.686 Eladio as MATERNAL [phone] Med ical & CHILD 369 [facility] 2018-12-06 2018-12-06 Routine Risk, [facility] 1.2.840.114 [id number] 10:02:15 11:39:46 Ang-Rmchp-N CLIENT DELIVERY SPECIALIST 350.1.13.10 Visit p/High REGIONAL 4.2.7.2.686 MATERNAL [id number] & CHILD 107 [facility] 2018-12-06 2018-12-06 Routine Risk, Xhu-Bcmdj-Bb/High [facility] 1. 2.840.114 [id number] Univers 10:02:15 11:39:46 Marycruz Quevedo CLIENT DELIVERY SPECIALIST 350.1.13.10 ity of Visit REGIONAL 4.2.7.2.686 Eladio as MATERNAL [id number] [facility] ical & CHILD 107 [facility] 2018-12-03 2018-12-03 [facility] Lorrie Olmos [facility] 1.2.840.114 [id number] 13:57:00 16:45:00 Encounter [facility] 350.1.13.10 [place] 4.2.7.2.686 [place] [id number] [facility] 2018-12-03 2018-12-03 [facility] 1.2.840.114 [id number] [facility] 13:57:00 16:45:00 Encounter [place] 350.1.13.10 ity of [place] 4.2.7.2.686 [place] [id number] [address] 2018-12-03 2018-12-03 Routine Faculty, [facility] 1.2.840.114 [id number] 09:27:42 10:36:46 Ang Rmchp CLIENT DELIVERY SPECIALIST 350.1.13.10 Visit [facility] 4.2.7.2.686 MATERNAL [phone] & CHILD 107 [facility] 2018-12-03 2018-12-03 Routine Faculty, Ad [facility]on [facility] 1.2 .840.114 [id number] Univers 09:27:42 10:36:46 Kyle Cordero CLIENT DELIVERY SPECIALIST 350.1.13. 10 ity of Visit REGIONAL 4.2.7.2.686 Eladio as MATERNAL [phone] Med ical & CHILD 107 [facility] 2018-11-29 2018-11-29 Routine Risk, [facility] 1.2.840.114 [id number] 12:45:37 13:38:16 [facility] CLIENT DELIVERY SPECIALIST 350.1.13.10 Visit p/High REGIONAL 4.2.7.2.686 MATERNAL [id number] & CHILD [address] [place] [address] 2018-11-29 2018-11-29 Routine Risk, Dka-Uiktr-Gm/High [facility] 1. 2.840.114 [id number] [facility] 12:45:37 13:38:16 Mila Ferguson CLIENT DELIVERY SPECIALIST 350.1.13.10 ity of Visit REGIONAL 4.2.7.2.686 Eladio as MATERNAL [phone] [facility] ical & CHILD [address] [place] [address] 2018-11-29 2018-11-29 Ip Attorney [facility]trasound, [facility] 1.2 .840.114 [id number] [facility] 11:09:01 11:48:17 Visit Calvin Patel CLIENT DELIVERY SPECIALIST 350.1.13.10 ity of REGIONAL 4.2.7.2.686 Eladio as MATERNAL [id number] [facility] ical & CHILD 369 [facility] 2018-11-26 2018-11-26 Routine Faculty, Ad Beachjayesh [facility] 1.2 .840.114 [id number] Univers 10:07:03 11:06:11 Inga Moore CLIENT DELIVERY SPECIALIST 350.1.1 3.10 ity of Visit REGIONAL 4.2.7.2.686 Eladio as MATERNAL [phone] [facility] ical & CHILD 107 [facility] 2018-11-22 2018-11-22 Ip Attorney 5, [facility] Usg Room UNIVERSIT 1 .2.840.114 [id number] Univers 10:44:00 11:48:35 Visit Inga Moore [facility] 350.1.1 3.10 ity of Alison Reis [facility] 4.2.7.2.686 [place] [id number] [facility] [address] [place] 2018-11-22 2018-11-22 Routine [facility] 1.2.172.852 [id number] Univers 08:04:45 09:05:49 Rimma Anayeli CLIENT DELIVERY SPECIALIST 350.1.13.10 i ty of Visit [facility] 4.2.7.2.686 Eladio as MATERNAL [id number] [facility] ical & CHILD [address] [place] [address] 2018-11-19 2018-11-19 [facility] Lorrie Olmos [facility] 1.2.840.114 [id number] [facility] 12:24:36 16:05:00 Encounter [facility] 350.1.13.10 ity of [place] 4.2.7.2.686 [facility] [phone] [facility] [address] [place] [place] 2018-11-19 2018-11-19 Routine Faculty, Ad [facility] 1.2 .840.114 [id number] [facility] 09:18:45 10:07:14 Alison Reis CLIENT DELIVERY SPECIALIST 350.1.13.10 ity of Visit [facility] 4.2.7.2.686 Eladio as MATERNAL [id number] [facility] & CHILD [address] [place] [address] 2018-11-15 2018-11-15 Routine Faculty, Ad [facility] 1.2 .840.114 [id number] Univers 13:56:25 15:11:31 Modesto De La Rosa CLIENT DELIVERY SPECIALIST 350.1.13.10 ity of Visit [facility] 4.2.7.2.686 Eladio as MATERNAL [id number] [facility] ical & CHILD [address] [place] [address] 2018-11-14 2018-11-14 Ip Attorney Ultrasound, [facility] 1.2 .840.114 [id number] Univers 10:38:34 11:32:09 Visit Alison Reis CLIENT DELIVERY SPECIALIST 350.1.13.10 ity of [facility] 4.2.7.2.686 Eladio as MATERNAL [phone] Med ical & CHILD 369 [facility] 2018-11-12 2018-11-12 Routine Faculty, Ad [facility] 1.2 .840.114 [id number] Univers 10:38:07 12:09:10 TeresaInga CLIENT DELIVERY SPECIALIST 350.1.1 3.10 ity of Visit REGIONAL 4.2.7.2.686 Eladio as MATERNAL [phone] Med ical & CHILD 107 [facility] 2018-11-01 2018-11-01 Case Jose C [facility] 1.2.682.858 [id number] Univers 00:00:00 00:00:[address] [facility] 350.1.13.10 ity of CLINICS 4.2.7.2.686 [place] [phone] [facility] [address] [place] Results Test Description Test Time Test Comments [...] g/dL 31.6-35.1 L RDW-SD (test code = 59458-3) 54.0 fL 39.0-49.9 H RDW-CV (test code = 788-0) 17.6 % 12.0-15.5 H PLT (test code = 777-3) See_Comment L [Au tomated message] The system which ge nerated this result transmit ramana reference range: 166 - 35 8 10*3/?L. The reference range was not used to interpret th is result as normal/abnormal . MPV (test code = 45022-3) 11.7 fL 9.5-12.9 NRBC/100 WBC (test code = See_Comment [ Automated message] The 1038478039) system which ge nerated this result transmit ramana reference range: 0.0 - 10 .0 /100 WBCs. The reference r susan was not used to interpr et this result as normal/abnor mal. NRBC x10^3 (test code = See_Comment [Au tomated message] The 8676374819) system which ge nerated this result transmit ramana reference range: 10*3/?L. The reference range was not u sed to interpret this result as normal/abnormal . GRAN MAT (NEUT) % (test code 65.3 % = 770-8) IMM GRAN % (test code = 0.60 % 8223645233) LYMPH % (test code = 736-9) 20.9 % MONO % (test code = 5905-5) 8.9 % EOS % (test code = 713-8) 3.8 % BASO % (test code = 706-2) 0.5 % GRAN MAT x10^3(ANC) (test 4.24 10*3/uL 1.88-7.09 code = 4545184149) IMM GRAN x10^3 (test code = 0.04 10*3/uL 0.00-0.06 5620464080) LYMPH x10^3 (test code = 1.36 10*3/uL 1.32-3.29 731-0) MONO x10^3 (test code = 0.58 10*3/uL 0.33-0.92 742-7) EOS x10^3 (test code = 0.25 10*3/uL 0.03-0.39 711-2) BASO x10^3 (test code = 0.03 10*3/uL 0.01-0.07 704-7) Lab Interpretation (test Abnormal code = 18843-2) [facility]IRUS (HCV) BY QUANTITATIVE NAAT 2021-08-25 22:03:12 Test Item Value Reference Range Interpretation Comments HCV Quantitative NAAT Not Detected log - log IU/mL (test code IU/mL = 48712-6) HCV Quantitative NAAT Not Detected - IU/mL (test code = IU/mL 53680-6) HCV Quantitative Detected Not Detected A Interpretation (test code = 3872609572) MICKY (test code = MICKY) The Aptima HCV Quant Dx assay is an FDA-approved real-time scenic artist-mediated amplification (TMA) test used for both detection [...] indicated. Lab Interpretation Abnormal (test code = 23408-7) [facility]lineTRANSFERRIN2022-05-11 19:43:00 Test Item Value Reference Range Interpretation Comments TRANSFERRN (test code = 9053818072) 255 mg/dL 168-336 Lab Interpretation (test code = Normal 35434-4) [facility] ShorelineTOTAL IRON BINDING [id number] 17:22:48 Test Item Value Reference Range Interpretation Comments TIBC (test code = 0499175998) 351 ug/dL 250-410 % FE SAT (test code = 5274484740) 9 % 20-50 L Lab Interpretation (test code = Abnormal 76404-9) [facility] WITH [id number] 12:43:10 Test Item Value Reference Range Interpretation [...] (test code = 52.3 fL 39.0-49.9 H 07014-3) RDW-CV (test code = 17.1 % 12.0-15.5 H 788-0) PLT (test code = See_Comment L [Automated 777-3) message] The sy stem which generated this result transmitted reference range : 166 - 358 10*3/ ?L. The reference r susan was not used to interpret this result as normal/abnormal . MPV (test code = 12.0 fL 9.5-12.9 83432-6) IPF % (test code = 8.6 % 1.3-7.7 H Platelet count 7342436099) measured by fluorescence method. NRBC/100 WBC (test See_Comment [Automat ed code = 7863936295) message] The system which generated this result transmitted reference range : 0.0 - 10.0 /100 WBCs. The refer ence range was not u sed to interpret th is result as normal/abnormal . NRBC x10^3 (test code See_Comment [Auto mated = 9265124296) message] The s ystem which generated this result transmitted reference range : 10*3/?L. The reference range was not used to interpret this result as normal/abnormal . GRAN MAT (NEUT) % 71.0 % (test code = 770-8) IMM GRAN % (test code 0.50 % = 2147157271) LYMPH % (test code = 14.1 % 736-9) MONO % (test code = 9.3 % 5905-5) EOS % (test code = 4.6 % 713-8) BASO % (test code = 0.5 % 706-2) GRAN MAT x10^3(ANC) 4.50 10*3/uL 1.88-7.09 (test code = 1958063367) IMM GRAN x10^3 (test 0.03 10*3/uL 0.00-0.06 code = 8582409121) LYMPH x10^3 (test code 0.89 10*3/uL 1.32-3.29 L = 731-0) MONO x10^3 (test code 0.59 10*3/uL 0.33-0.92 = 742-7) EOS x10^3 (test code = 0.29 10*3/uL 0.03-0.39 711-2) BASO x10^3 (test code 0.03 10*3/uL 0.01-0.07 = 704-7) Lab Interpretation Abnormal (test code = 43542-0) [facility] Packed RBC (in units), 2 Units 2021-08-25 03:06:35 Test Item Value Reference Range Interpretation Comments Cross Match Result Compatible (test code = 4409) ISBT Blood Type Code (test code = 804983) Unit Blood Type (test A Pos code = 4410) Unit Number (test [id number] code = 4411) Blood Expiration Date & Time (test code = 250960) Status Information Issued (test code = 4412) Product Red Blood Cells Identification (test code = 4413) Product Code (test [id number] Performed at [facility] code = 4414) Laboratory Services - [facility] Blood [address] [place] [address]Hpzf Free: [phone] A No. [id number] [facility] ShorelineCOM. METABOLIC PANEL (94787)2021-08-25 02:25:15 Test Item Value Reference Range Interpretation Comments NA (test code = 138 mmol/L 135-145 0946117467) K (test code = 3.6 mmol/L 3.5-5.0 5547140131) CL (test code = 108 mmol/L 98-108 9587632149) CO2 TOTAL (test code = 21 mmol/L 23-31 L 6474707377) AGAP (test code = 2-16 7526929662) BUN (test code = 6 mg/dL 7-23 L 6092336502) GLUCOSE (test code = 105 mg/dL 70-110 4674897417) CREATININE (test code = 0.55 mg/dL 0.50-1.04 5729733319) TOTAL BILI (test code = 0.5 mg/dL 0.1-1.0 9018525088) CALCIUM (test code = 8.3 mg/dL 8.6-10.6 L 0803107137) T PROTEIN (test code = 6.7 g/dL 6.3-8.2 3598810847) ALBUMIN (test code = 3.7 g/dL 3.5-5.0 2674998398) ALK PHOS (test code = 52 U/L 34-122 6924570535) ALTv (test code = 12 U/L 5-35 1742-6) AST(SGOT) (test code = 19 U/L 13-40 5065308391) eGFR (test code = mL/min/1.73m2 3350192342) MICKY (test code = MICKY) Association of [...] tests). Lab Interpretation Abnormal (test code = 02592-4) [facility]lineHCV [id number] 01:23:26 Test Item Value Reference Range Interpretation Comments HCV Ab (test code = Positive 50042-7) HCV Semi-Quantitative (test code = 24267-2) MICKY (test code = Positive for HCV antibody MICKY) with a high signal to cutoff ratio (s/c). ?Supplementary test for Hepatitis C Virus RNA Real-Time PCR is recommended if clinically indicated. ?If any questions, please contact Clinical Chemistry Director correctional treatment specialist at [phone]. [facility] ShorelineFERRITIN [id number] 01:06:44 Test Item Value Reference Range Interpretation Comments FERRITIN (test code = 7.6 ng/mL 6.0-137.0 2412671865) MICKY (test code = MICKY) Biotin has been reported to cause a negative bias, interpret results relative to patient's use of biotin. Lab Interpretation (test Normal code = 29063-0) [facility] ShorelineIRON2022-05-11 00:13:37 Test Item Value Reference Range Interpretation Comments IRON (test code = 2058875367) 33 ug/dL 50-160 L Lab Interpretation (test code = Abnormal 94365-8) [facility] ShorelineTransfusion Reaction [id number] 20:36:31 Test Item Value Reference Range Interpretation Comments CLERICAL CK Acceptable Performed at [facility] (test code = Laboratory Serv ices - 542) [facility] Blood Bank[address] [place] [address] s [address]Ynkl Free: [phone] A No. [id number] PRE SERUM (test No Hemolysis Performed at [facility] code = 1637) NotedNo [facility] Laboratory S ervices - Noted [facility] Blood [address] s [address]Jxod Free: [phone] A No. [id number] POST ABO & RH A Positive Performed at [facility] (test code = Laboratory Serv ices - 1616) [facility] Blood [address] [place] [address] s [address]Igqw Free: [phone] A No. [id number] PRODUCT (test RBC- See comment [id number] 71235 ? code = 2110) ?O7572P48Stcitw med at [facility] Laboratory Services - [facility] Blood [address] [address]Tqsc Free: [phone] A No. [id number] POST MARCIANO (test Negative Performed at [facility] code = 1619) Laboratory Serv ice - [facility] Blood [address] s [address]Yrwu Free: [phone] A No. [id number] POST SERUM (test No Hemolysis Performed a t [facility] code = 1620) NotedNo [facility] Laboratory S ervices - Noted [facility] Blood [address] s [address]Kwir Free: [phone] A No. [id number] PRELIM RESULT Negative TxRxn Negative: No evidence (test code = of a hemolytic 3962) transfusion sofie ction; Blood Bank phys ician interpretation to follow.Performe d at [facility] Laboratory Services - [facility] Blood [address] [place] [address]Waot Free: [phone] A No. [id number] [facility] (Spun)2021-08-24 20:03:41 Test Item Value Reference Range Interpretation Comments APPEARANCE (test code = Hazy Clear A 0113414626) COLOR (test code = Red Yellow A Light red in color 0575584557) PH (test code = 4.8-8.0 5291954585) SP GRAVITY (test code = 1.003-1.030 8454237520) GLU U QUAL (test code = Normal Normal 6778126701) BLOOD (test code = 3+ Negative A 0393995573) KETONES (test code = Negative Negative 4639720430) PROTEIN (test code = 100 mg/dL Negative A 2887-8) UROBILIN (test code = Normal Normal 8826295249) BILIRUBIN (test code = Negative Negative 4055973610) NITRITE (test code = Negative Negative 1067761057) LEUK MISBAH (test code = 25/uL Negative A 6240924798) RBC/HPF (test code = See_Comment H [Autom ated message] 4241689087) The system Company generated this result transmit ramana reference range : 0 - 3 HPF. The refe rence range was not u sed to interpret th is result as normal/abnormal . WBC/HPF (test code = See_Comment H [Autom ated message] 7744876262) The system Company generated this result transmit ramana reference range : 0 - 5 HPF. The refe rence range was not u sed to interpret th is result as normal/abnormal . BACTERIA (test code = Few Negative A 3394212223) MUCOUS (test code = Slight Negative LPF A 9851102432) SQ EPITH (test code = See_Comment H [Auto mated message] 6075722852) The system Company generated this result transmit ramaan reference range : <=2 HPF. The refere nce range was not u sed to interpret th is result as normal/abnormal . Lab Interpretation (test Abnormal code = 98565-3) [facility] WITH [id number] 09:45:32 Test Item Value Reference Range Interpretation [...] (test code = 55.6 fL 39.0-49.9 H 94122-7) RDW-CV (test code = 18.6 % 12.0-15.5 H 788-0) PLT (test code = See_Comment L [Automated 777-3) message] The sy stem which generated this result transmitted reference range : 166 - 358 10*3/ ?L. The reference r susan was not used to interpret this result as normal/abnormal . MPV (test code = 11.5 fL 9.5-12.9 02347-9) NRBC/100 WBC (test See_Comment [Automat ed code = 6036012094) message] The system which generated this result transmitted reference range : 0.0 - 10.0 /100 WBCs. The refer ence range was not u sed to interpret th is result as normal/abnormal . NRBC x10^3 (test code See_Comment [Auto mated = 1097687522) message] The s ystem which generated this result transmitted reference range : 10*3/?L. The reference range was not used to interpret this result as normal/abnormal . GRAN MAT (NEUT) % 63.2 % (test code = 770-8) IMM GRAN % (test code 0.20 % = 3727076081) LYMPH % (test code = 25.0 % 736-9) MONO % (test code = 8.6 % 5905-5) EOS % (test code = 2.4 % 713-8) BASO % (test code = 0.6 % 706-2) GRAN MAT x10^3(ANC) 3.22 10*3/uL 1.88-7.09 (test code = 7098377769) IMM GRAN x10^3 (test <0.03 0.00-0.06 code = 8559358219) LYMPH x10^3 (test code 1.27 10*3/uL 1.32-3.29 L = 731-0) MONO x10^3 (test code 0.44 10*3/uL 0.33-0.92 = 742-7) EOS x10^3 (test code = 0.12 10*3/uL 0.03-0.39 711-2) BASO x10^3 (test code 0.03 10*3/uL 0.01-0.07 = 704-7) Lab Interpretation Abnormal (test code = 33993-9) [facility]lineType and Screen - ONCE [id number] 09:42:16 Test Item Value Reference Range Interpretation Comments ABO & RH (test code A POSITIVE Performe d at [facility] = 20) Laboratory Serv [facility] Blood Bank3 [address] [facility] s [address]Qdim Free: [phone] A No. [id number] IAT (test code = Negative Performed a t [facility] 1185) Laboratory Serv [facility] Blood Bank3 [address] [facility] s [address]Lxqt Free: [phone] A No. [id number] [facility]lineCB W/AUTO [id number] 08:31:00 Test Item Value Reference Range Interpretation [...] REQUIRED (test code = PLTMR) CBC W/AUTO [id number] 13:59:00 Test Item Value Reference Range Interpretation [...] NIKOLAS POWER.READ JED K & CONFIRMED? Y.BY [id number] 1356 IMMATURE PLATELET 6.0 % 0.0-10.8 N [...] REQUIRED (test code = PLTMR) CBC W/AUTO [id number] 00:52:00 Test Item Value Reference Range Interpretation Comments WHITE BLOOD CELL (test 6.5 K/mm3 6.5-12.3 N code = WBC) RED BLOOD CELL (test 2.45 M/mm3 3.51-4.69 L code = RBC) HEMOGLOBIN (test code = 6.4 g/dL 10.1-13.8 LL RESU LTS CALLED TO HGB) CLIFFORD VILLAGOMEZ AD BACK & CONFIRME D? YBY 48CIF5234 05/04/21 0025 HEMATOCRIT (test code = 21.5 [...] REQUIRED (test code = PLTMR) COMPREHENSIVE METABOLIC [id number] 00:38:00 Test Item Value Reference Range Interpretation [...] units/L 46-116 N code = ALKP) PROTHROMBIN [id number] 00:35:00 Test Item Value Reference Range Interpretation Comments PROTHROMBIN TIME PATIENT (test code 13.6 secs 10.1-12.3 H = PTP) THROMBOPLASTIN TIME [id number] 00:35:00 Test Item Value Reference Range Interpretation Comments THROMBOPLASTIN TIME PARTIAL (test 30.6 secs 22-38 N code = PTT) - DUP AB/PEL/SC/[id number] 00:00:00 [facility] 1985 Sex: F Patient Name: BRI CAMPBELL Unit No: [id number] EXAMS: CPT CODE: [id number] DUP AB/PEL/SC/LTD 55136 PROCEDURE INFORMATION: Exam: US Pelvis Complete (Transabdominal), [...] and signed by: Reza Alexandre MD [facility] NAME: BRI CAMPBELL Radiology Department PHYS: DEMIAN. Chelo Ramírez MD [address] : 1985 AGE: 35 SEX: F [place], [place] [address] LOC: JOSSUE PHONE #: [phone] EXAM DATE: 05/04/2021 STATUS: REG ER FAX #: [phone] RAD NO: Page 1 Signed Report (CONTINUED) Patient Name: CAMPBELLBRI Unit No: [id number] EXAMS: CPT CODE: [id number] DUP AB/PEL/SC/LTD 60603 <Continued> CC: Chelo Ramírez MD Technologist: Griselda Streeter RDMS Probe: Trnscrbd D/ (0121) GCD.CPS Orig Print D/T: S: 05/04/2021 (0124) [facility] NAME: BRI CAMPBELL MICHAELWEI Radiology Department PHYS: LASHELL Chelo Ramírez MD [address] : 1985 AGE: 35 SEX: F [place] [address] LOC: F.ERS PHONE #: [phone] EXAM DATE: 05/04/2021 STATUS: REG ER FAX #: [phone] RAD NO: Page 2 Signed Report Patient Name: BRI CAMPBELL Unit No: [id number]: CPT CODE: [id number] DUP AB/PEL/SC/LTD 40505 <Continued> [facility] NAME: BRI CAMPBELL Radiology Department PHYS: LASHELL Chelo Ramírez MD [address] : 1985 AGE: 35 SEX: F [place] [address] LOC: F.ERS PHONE #: [phone] EXAM DATE: 05/04/2021 STATUS: REG ER FAX #: [phone] RAD NO: Page 3 Signed Report- US PELVIS [id number] 00:00:00 [facility] : 1985 Sex: F Patient Name: BRI CAMPBELL Unit No: [id number] EXAMS: CPT CODE: [id number] US PELVIS COMPLETE 90236 PROCEDURE INFORMATION: Exam: US Pelvis Complete (Transabdominal), [...] and signed by: Reza Alexandre MD [facility] NAME: BRI CAMPBELL Radiology Department PHYS: [facility] Chelo Ramírez MD [address] : 1985 AGE: 35 SEX: F [place] [address] LOC: F.ERS PHONE #: [phone] EXAM DATE: 05/04/2021 STATUS: REG ER FAX #: [phone] RAD NO: Page 1 Signed Report (CONTINUED) Patient Name: BRI CAMPBELL Unit No: [id number] EXAMS: CPT CODE: [id number] US PELVIS COMPLETE 81250 <Continued> CC: Chelo Ramírez MD Technologist: Griselda Streeter RDMS Probe: Trnscrbd D/ (0121) GCD.CPS Orig Print D/T: S: 05/04/2021 (0121) The [facility] NAME: BRI CAMPBELL Radiology Department PHYS: Chelo Ramírez MD [address] : 1985 AGE: 35 SEX: F [place] [address] LOC: Maya.ERS PHONE #: [phone] EXAM DATE: 05/04/2021 STATUS: REG ER FAX #: [phone] RAD NO: Page 2 Signed Report Patient Name: BRI CAMPBELL Unit No: [id number]: CPT CODE: [id number] US PELVIS COMPLETE 86075 <Continued> The [facility] NAME: BRI CAMPBELL MICHAELWEI Radiology Department PHYS: Chelo Ramírez MD [address] : 1985 AGE: 35 SEX: F [place], [place] [address] LOC: JOSSUE PHONE #: [phone] EXAM DATE: 05/04/2021 STATUS: GERBER ER FAX #: [phone] RAD NO: Page 3 Signed Report- US TRANSVAGINAL W/[id number] 00:00:00 [facility] : 1985 Sex: F Patient Name: BRI CAMPBELL Unit No: [id number] EXAMS: CPT CODE: [id number] US TRANSVAGINAL W/PELVIS 09629 PROCEDURE INFORMATION: Exam: US Pelvis Complete (Transabdominal), [...] and signed by: Reza Alexandre MD The [facility] NAME: BRI CAMPBELL Radiology Department PHYS: DEMIAN. Chelo Ramírez MD [address] : 1985 AGE: 35 SEX: F [place], [place] [address] LOC: F.ERS PHONE #: [phone] EXAM DATE: 05/04/2021 STATUS: REG ER FAX #: [phone] RAD NO: Page 1 Signed Report (CONTINUED) Patient Name: BRI CAMPBELL Unit No: [id number] EXAMS: CPT CODE: [id number] US TRANSVAGINAL W/PELVIS 64860 <Continued> CC: Chelo Ramírez MD Technologist: Griselda Streeter RDMS Probe: [id number] Trnscrbd D/ (0121) GCD.CPS Orig Print D/T: S: 05/04/2021 (0122) The [facility] NAME: BRI CAMPBELL Radiology Department PHYS: Chelo Ramírez MD [address] : 1985 AGE: 35 SEX: F [place], [place] [address] LOC: F.ERS PHONE #: [phone] EXAM DATE: 05/04/2021 STATUS: REG ER FAX #: [phone] RAD NO: Page 2 Signed Report Patient Name: BRI CAMPBELL Unit No: [id number]: CPT CODE: [id number] US TRANSVAGINAL W/PELVIS 26607 <Continued> The [facility] NAME: BRI CAMPBELL Radiology Department PHYS: Chelo Ramírez MD [address] : 11/1985 AGE: 35 SEX: F [place], [place] [address] LOC: F.ERS PHONE #: [phone] EXAM DATE: 05/04/2021 STATUS: REG ER FAX #: [phone] RAD NO: Page 3 Signed Report- DUP VEIN [id number] 08:04:00 [facility] : 1985 Sex: F Patient Name: BRI CAMPBELL Unit No: [id number] EXAMS: CPT CODE: [id number] DUP VEIN SAMANTHA 46664 BILATERAL LOWER EXTREMITY DUPLEX VENOUS DOPPLER ULTRASOUND, [...] Orig Print D/T: S: 05/04/2020 (0807) The [facility] NAME: BRI CAMPBELL Radiology Department PHYS: Magdalena Borrego MD [address] : 1985 AGE: 34 SEX: F [place] [address] LOC: ROMAIN A PHONE #: [phone] EXAM DATE: 05/04/2020 STATUS: ADM IN FAX #: [phone] RAD NO: Page 1 Signed Report Patient Name: BRI CAMPBELL Unit No: [id number] EXAMS: CPT CODE: [id number] DUP VEIN SAMANTHA 05319 <Continued> The [facility] NAME: BRI CAMPBELLUNDERWOOD Radiology Department PHYS: Magdalena Borrego MD [address] : 1985 AGE: 34 SEX: F [place] [address] LOC: TANGELA4 A PHONE #: [phone] EXAM DATE: 05/04/2020 STATUS: ADM IN FAX #: [phone] RAD NO: Page 2 Signed ReportCBC W/AUTO [id number] 04:57:00 Test Item Value Reference Range Interpretation [...] NORMAL REQUIRED (test code = PLTMR) WBC [id number] 04:57:00 Test Item Value Reference Range Interpretation [...] NORMAL A code = PLTMORPH) CBC W/AUTO [id number] 04:56:00 Test Item Value Reference Range Interpretation [...] NORMAL REQUIRED (test code = PLTMR) WBC [id number] 04:56:00 Test Item Value Reference Range Interpretation Comments SEGMENTED NEUTROPHILS (test code = SEG) % 56.5-79.4 LYMPHOCYTE (test code = LYMPH) % 20-40 CBC W/AUTO [id number] 04:56:00 Test Item Value Reference Range Interpretation [...] NORMAL REQUIRED (test code = PLTMR) WBC [id number] 04:56:00 Test Item Value Reference Range Interpretation Comments SEGMENTED NEUTROPHILS (test code = SEG) % 56.5-79.4 LYMPHOCYTE (test code = LYMPH) % 20-40 COMPREHENSIVE METABOLIC [id number] 04:39:00 Test Item Value Reference Range Interpretation [...] 46-116 N code = ALKP) CBC W/AUTO [id number] 19:13:00 Test Item Value Reference Range Interpretation Comments WHITE BLOOD CELL 5.9 K/mm3 6.6-12.1 L (test code = WBC) RED BLOOD CELL (test 2.60 M/mm3 3.45-5.01 L code = RBC) HEMOGLOBIN (test 6.9 g/dL 10.7-13.9 L RESULTS FERMIN IFIED BY code = HGB) REPEAT ANALYSIS RESULTS CALLED TO GIANNA VERDUGOREAD BACK & CONFIRME D? Y.BY F.[facility] 05/03. HEMATOCRIT (test 22.1 % 32.1-42.1 L [...] PLT) SUREKHA.READ BA CK & CONFIRMED? Y.BY F.[facility] 05/03 IMMATURE PLATELET 6.4 % 0.0-10.8 N [...] REQUIRED (test code PRESENT = PLTMR) LACTIC [id number] 19:05:00 Test Item Value Reference Range Interpretation Comments LACTIC ACID (test 4.5 MMOL/L 0.5-2.2 HH RESULTS CA LLED TO code = LACT) MARIBEL.READ BACK & CONFIRMED? YES. BY GlenAS04 04/17. COMPREHENSIVE METABOLIC [id number] 19:01:00 Test Item Value Reference Range Interpretation [...] 60 units/L 46-116 code = ALKP) PROTHROMBIN [id number] 19:01:00 Test Item Value Reference Range Interpretation Comments PROTHROMBIN TIME PATIENT (test code 13.3 secs 10.4-12.4 H = PTP) THROMBOPLASTIN TIME [id number] 19:01:00 Test Item Value Reference Range Interpretation Comments THROMBOPLASTIN TIME PARTIAL (test 20.6 secs 22-38 L code = PTT) [id number] 19:01:00 Test Item Value Reference Range Interpretation Comments FIBRINOGEN (test code = FIB) 141 mg/dL 309-518 L UA RFLX MICR CULT IF [id number] 12:47:00 Test Item Value Reference Range Interpretation [...] RiskForSepsis-no oth srcSpecimen Description: CLEAN CATCHUR HCG [id number] 12:47:00 Test Item Value Reference Range Interpretation [...] Description: CLEAN CATCHUA RFLX MICR CULT IF [id number] 12:36:00 Test Item Value Reference Range Interpretation [...] RiskForSepsis-no oth srcSpecimen Description: CLEAN CATCHUR HCG [id number] 12:36:00 Test Item Value Reference Range Interpretation [...] culture: RiskForSepsis-no oth srcSpecimen Description: CLEAN CATCHPROTHROMBIN [id number] 10:14:00 Test Item Value Reference Range Interpretation Comments PROTHROMBIN TIME PATIENT (test code 13.3 secs 10.4-12.4 H = PTP) THROMBOPLASTIN TIME [id number] 10:14:00 Test Item Value Reference Range Interpretation Comments THROMBOPLASTIN TIME PARTIAL (test 19.4 secs 22-38 L code = PTT) [id number] 10:14:00 Test Item Value Reference Range Interpretation Comments FIBRINOGEN (test code = FIB) 102 mg/dL 309-518 L COMPREHENSIVE METABOLIC [id number] 09:54:00 Test Item Value Reference Range Interpretation [...] units/L 46-116 N code = ALKP) HGB [id number] 06:49:00 Test Item Value Reference Range Interpretation [...] reviewed this study and agree with the abovereport.[facility] ShorelineProtein CREAT Ratio Urine [id number] 06:35:00 Test Item Value Reference Range Interpretation Comments T. PROT U (test code = 2888-6) 11 mg/dL CREAT U (test code = 3386636070) 153.3 mg/dL Protein/Creatinine Ratio Urine 0.0-2.0 (test code = 9415106914) [facility] ShorelineUric Acid [id number] 05:37:00 Test Item Value Reference Range Interpretation Comments URIC ACID (test code = 4209084908) 8.2 mg/dL 2.9-6 H Lab Interpretation (test code = Abnormal 20319-3) [facility] ShorelineAlanine Amino Transferase (SGPT)2019-01-01 05:37:00 Test Item Value Reference Range Interpretation Comments ALT(SGPT) (test code = 7308481794) 21 U/L 9-51 Lab Interpretation (test code = Normal 27759-4) [facility] ShorelineLactate [id number] 05:37:00 Test Item Value Reference Range Interpretation Comments LDH (test code = 4033169678) 781 U/L 300-600 H Lab Interpretation (test code = Abnormal 55724-5) [facility] ShorelineSerum [id number] 05:25:00 Test Item Value Reference Range Interpretation Comments CREATININE (test code 0.62 mg/dL 0.5-1.04 = 2281110763) eGFR Calculation mL/min/1.73m2 (Non-) (test code = 9799798401) eGFR Calculation mL/min/1.73m2 () (test code = 9075969929) MICKY (test code = MICKY) Association of [...] or urine or abnormalities in imaging tests). [facility] ShorelineSGOT (Asparate Amino Transfer)2019-01-01 05:25:00 Test Item Value Reference Range Interpretation Comments AST(SGOT) (test code = 6362145267) 30 U/L 13-40 Lab Interpretation (test code = Normal 30531-7) [facility] ShorelineUrinalysis2019-09-17 04:46:00 Test Item Value Reference Range Interpretation Comments APPEARANCE (test code = Clear Clear 0627482123) COLOR (test code = Yellow Yellow 5613719771) PH (test code = 4.8-8.0 1299350473) SP GRAVITY (test code = 1.003-1.030 7498679919) GLU U QUAL (test code = Normal Normal 0661486890) BLOOD (test code = Negative Negative 0412385635) KETONES (test code = Negative Negative 8690303963) PROTEIN (test code = Negative Negative 2887-8) UROBILIN (test code = Normal Normal 1091417745) BILIRUBIN (test code = Negative Negative 3691824158) NITRITE (test code = Negative Negative 3438188608) LEUK MISBAH (test code = Negative Negative 2109147167) RBC/HPF (test code = See_Comment [Autom ated message] 8820945307) The system Company generated this result transmitted ref erence range: 0 - 3 HP F. The reference range was not used to int erpret this result as normal/abnormal . WBC/HPF (test code = See_Comment [Autom ated message] 3653513715) The system Company generated this result transmitted ref erence range: 0 - 5 HP F. The reference range was not used to int erpret this result as normal/abnormal . BACTERIA (test code = Negative Negative 5772677942) MUCOUS (test code = Slight Negative LPF A 6856444279) SQ EPITH (test code = See_Comment H [Auto mated message] 8615333117) The system Company generated this result transmitted ref erence range: <=2 HPF. The reference range was not used to int erpret this result as normal/abnormal . HYAL CAST (test code = See_Comment H [Aut omated message] 0847953403) The system Company generated this result transmitted ref erence range: <=2 LPF. The reference range was not used to int erpret this result as normal/abnormal . Lab Interpretation (test Abnormal code = 98134-8) [facility] WITH [id number] 04:31:00 Test Item Value Reference Range Interpretation Comments WBC (test code = See_Comment [Automated 9890-2) message] The sy stem which generated this result transmitted reference range : 4.30 - 11.10 10*3/?L. The reference range was not used to interpret this result as normal/abnormal . RBC (test code = See_Comment L [Automated 589-8) message] The sy stem which generated this [...] (test code = 50.6 fL 39-49.9 H 54288-9) RDW-CV (test code = 14.8 % 12-15.5 788-0) PLT (test code = See_Comment [Automated 777-3) message] The sy stem which generated this result transmitted reference range : 166 - 358 10*3/ ?L. The reference r susan was not used to interpret this result as normal/abnormal . MPV (test code = 10.6 fL 9.5-12.9 68449-4) NRBC/100 WBC (test See_Comment [Automat ed code = 0378755257) message] The system which generated this result transmitted reference range : 0.0 - 10.0 /100 WBCs. The refer ence range was not u sed to interpret th is result as normal/abnormal . NRBC x10^3 (test code <0.01 See_Comment [Auto mated = 5134632142) message] The s ystem which generated this result transmitted reference range : 10*3/?L. The reference range was not used to interpret this result as normal/abnormal . GRAN MAT (NEUT) % 60.1 % (test code = 770-8) IMM GRAN % (test code 0.70 % = 8249485689) LYMPH % (test code = 18.1 % 736-9) MONO % (test code = 6.1 % 5905-5) EOS % (test code = 14.3 % 713-8) BASO % (test code = 0.7 % 706-2) GRAN MAT x10^3(ANC) 5.24 10*3/uL 1.88-7.09 (test code = 4038188043) IMM GRAN x10^3 (test 0.06 10*3/uL 0-0.06 code = 3428288422) LYMPH x10^3 (test code 1.58 10*3/uL 1.32-3.29 = 731-0) MONO x10^3 (test code 0.53 10*3/uL 0.33-0.92 = 742-7) EOS x10^3 (test code = 1.25 10*3/uL 0.03-0.39 H 711-2) BASO x10^3 (test code 0.06 10*3/uL 0.01-0.07 = 704-7) Lab Interpretation Abnormal (test code = 02283-0) [facility] ShorelinePOWY URINALYSIS W SPECIFIC [id number] 20:25:00 Test Item Value Reference Range Interpretation [...] POCT U APPEAR (test code = 3267) [facility] ShorelineN-TERMINAL [id number] 02:52:00 Test Item Value Reference Range Interpretation Comments NT-proBNP (test code 423 pg/mL See_Comment H [Autom ated = 2372140663) message] The system which generated this result transmitted reference range : <=125. The reference range was not used to interpret this result as normal/abnormal . MICKY (test code = MICKY) Biotin has been reported to cause a negative bias, interpret results relative to patient's use of biotin. Lab Interpretation Abnormal (test code = 52688-3) [facility]. METABOLIC PANEL (97567)2018-12-29 02:44:00 Test Item Value Reference Range Interpretation Comments NA (test code = 141 mmol/L 135-145 0163379516) K (test code = 3.8 mmol/L 3.5-5 7845473388) CL (test code = 110 mmol/L 98-108 H 8898776574) CO2 TOTAL (test code = 23 mmol/L 23-31 1087341570) AGAP (test code = 2-16 4815607010) BUN (test code = 12 mg/dL 7-23 2994299984) GLUCOSE (test code = 103 mg/dL 70-110 9793211548) CREATININE (test code = 0.50 mg/dL 0.5-1.04 4021453858) TOTAL BILI (test code = 0.6 mg/dL 0.1-1.2 8209462611) CALCIUM (test code = 8.9 mg/dL 8.6-10.6 1801052894) T PROTEIN (test code = 6.8 g/dL 6.3-8.2 2219787605) ALBUMIN (test code = 3.5 g/dL 3.5-5 4764689792) ALK PHOS (test code = 86 U/L 34-122 4099128947) ALT(SGPT) (test code = 19 U/L 9-51 1841447935) AST(SGOT) (test code = 29 U/L 13-40 7472661116) eGFR Calculation mL/min/1.73m2 (Non-) (test code = 0442470787) eGFR Calculation mL/min/1.73m2 () (test code = 7855977024) MICKY (test code = MICKY) Association of [...] tests). Lab Interpretation Abnormal (test code = 54812-5) [facility] ShorelineLIPASE2019-09-14 02:44:00 Test Item Value Reference Range Interpretation Comments LIPASE (test code = 7552384490) 89 U/L 0-220 Lab Interpretation (test code = Normal 32112-9) [facility] ShorelineMAGNESIUM2019-09-14 02:44:00 Test Item Value Reference Range Interpretation Comments MAGNESIUM (test code = 7267564896) 1.5 mg/dL 1.7-2.4 L Lab Interpretation (test code = Abnormal 24320-5) [facility] ShorelinePROTHROMBIN TIME / [id number] 02:40:00 Test Item Value Reference Range Interpretation Comments PROTIME PATIENT (test See_Comment [Auto mated message] code = 5964-2) The system [employer] generated this result transmitted ref erence range: 12.0 - 1 4.7 Seconds. The re ference range was not u sed to interpret this result as normal/abnor mal. INR (test code = 6301-6) Nor mal INR <1.1; Warfarin Therap eutic range 2.0 to 3. 0 or 2.5 to 3.5, dep ending upon the indica tions. Lab Interpretation (test Normal code = 92500-6) [facility] ShorelineURINALYSIS2019-09-14 02:37:00 Test Item Value Reference Range Interpretation Comments APPEARANCE (test code = Cloudy Clear A 0801515997) COLOR (test code = Laura Yellow A 1668406493) PH (test code = 4.8-8.0 9305096419) SP GRAVITY (test code = 1.003-1.030 1285200137) GLU U QUAL (test code = Normal Normal 3369476782) BLOOD (test code = 3+ Negative A 7726278902) KETONES (test code = Negative Negative 6771435583) PROTEIN (test code = 100 mg/dL Negative A 2887-8) UROBILIN (test code = 4.0 mg/dL Normal A 4836038738) BILIRUBIN (test code = Negative Negative 3483143804) NITRITE (test code = Negative Negative 8504232787) LEUK MISBAH (test code = 75/uL Negative A 8188665822) RBC/HPF (test code = See_Comment H [Autom ated message] 0521204133) The system Company generated this result transmit ramana reference range : 0 - 3 HPF. The refe rence range was not u sed to interpret th is result as normal/abnormal . WBC/HPF (test code = See_Comment H [Autom ated message] 2260366016) The system Company generated this result transmit ramana reference range : 0 - 5 HPF. The refe rence range was not u sed to interpret th is result as normal/abnormal . BACTERIA (test code = Moderate Negative A 0523643186) MUCOUS (test code = Marked Negative LPF A 9768641235) SQ EPITH (test code = HPF 1654203462) YEAST BUD (test code = See_Comment H [Aut omated message] 1664328557) The system Company generated this result transmit ramana reference range : <=1 HPF. The refere nce range was not u sed to interpret th is result as normal/abnormal . ROSSI EPITH (test code = See_Comment [Aut omated message] 8637797132) The system Company generated this result transmit ramana reference range : <=1 HPF. The refere nce range was not u sed to interpret th is result as normal/abnormal . Lab Interpretation (test Abnormal code = 88162-5) [facility] WITH [id number] 02:09:00 Test Item Value Reference Range Interpretation Comments WBC (test code = See_Comment [Automated 90-2) message] The sy stem which generated this [...] (test code = 52.4 fL 39-49.9 H 43354-1) RDW-CV (test code = 15.3 % 12-15.5 788-0) PLT (test code = See_Comment L [Automated 777-3) message] The sy stem which generated this result transmitted reference range : 166 - 358 10*3/ ?L. The reference r susan was not used to interpret this result as normal/abnormal . MPV (test code = 11.3 fL 9.5-12.9 07476-8) NRBC/100 WBC (test See_Comment [Automat ed code = 2686762631) message] The system which generated this result transmitted reference range : 0.0 - 10.0 /100 WBCs. The refer ence range was not u sed to interpret th is result as normal/abnormal . NRBC x10^3 (test code See_Comment [Auto mated = 1881354375) message] The s ystem which generated this result transmitted reference range : 10*3/?L. The reference range was not used to interpret this result as normal/abnormal . GRAN MAT (NEUT) % 70.5 % (test code = 770-8) IMM GRAN % (test code 0.80 % = 1998109047) LYMPH % (test code = 16.6 % 736-9) MONO % (test code = 6.0 % 5905-5) EOS % (test code = 5.8 % 713-8) BASO % (test code = 0.3 % 706-2) GRAN MAT x10^3(ANC) 5.46 10*3/uL 1.88-7.09 (test code = 9996824994) IMM GRAN x10^3 (test 0.06 10*3/uL 0-0.06 code = 6536579594) LYMPH x10^3 (test code 1.28 10*3/uL 1.32-3.29 L = 731-0) MONO x10^3 (test code 0.46 10*3/uL 0.33-0.92 = 742-7) EOS x10^3 (test code = 0.45 10*3/uL 0.03-0.39 H 711-2) BASO x10^3 (test code <0.03 0.01-0.07 = 704-7) Lab Interpretation Abnormal (test code = 03359-6) [facility]linePOCT URINALYSIS W SPECIFIC [id number] 18:54:00 Test Item Value Reference Range Interpretation [...] U APPEAR (test code = 3267) * [facility] ShorelineRHO (D) IMMUNE [id number] 12:40:02 Test Item Value Reference Range Interpretation Comments RHIG CANDIDATE? No- see comment Patient i s not a (test code = candidate for R hIg- 5055) Patient is Rh Positive.Perfor med at [facility] Laboratory Services - [facility] Blood [address] [place] [address]Boak Free: [phone] A No. [id number] [facility] WITH [id number] 09:27:00 Test Item Value Reference Range Interpretation [...] (test code = 52.0 fL 39-49.9 H 80849-2) RDW-CV (test code = 15.2 % 12-15.5 788-0) PLT (test code = See_Comment L [Automated 777-3) message] The sy stem which generated this result transmitted reference range : 166 - 358 10*3/ ?L. The reference r susan was not used to interpret this result as normal/abnormal . MPV (test code = 10.8 fL 9.5-12.9 72429-2) NRBC/100 WBC (test See_Comment [Automat ed code = 6497460220) message] The system which generated this result transmitted reference range : 0.0 - 10.0 /100 WBCs. The refer ence range was not u sed to interpret th is result as normal/abnormal . NRBC x10^3 (test code <0.01 See_Comment [Auto mated = 6646974325) message] The s ystem which generated this result transmitted reference range : 10*3/?L. The reference range was not used to interpret this result as normal/abnormal . GRAN MAT (NEUT) % 73.9 % (test code = 770-8) IMM GRAN % (test code 0.50 % = 5640164930) LYMPH % (test code = 15.2 % 736-9) MONO % (test code = 7.2 % 5905-5) EOS % (test code = 3.1 % 713-8) BASO % (test code = 0.1 % 706-2) GRAN MAT x10^3(ANC) 5.65 10*3/uL 1.88-7.09 (test code = 4580358007) IMM GRAN x10^3 (test 0.04 10*3/uL 0-0.06 code = 0872591765) LYMPH x10^3 (test code 1.16 10*3/uL 1.32-3.29 L = 731-0) MONO x10^3 (test code 0.55 10*3/uL 0.33-0.92 = 742-7) EOS x10^3 (test code = 0.24 10*3/uL 0.03-0.39 711-2) BASO x10^3 (test code <0.03 0.01-0.07 = 704-7) Lab Interpretation Abnormal (test code = 47481-8) [facility] WITH [id number] 16:03:00 Test Item Value Reference Range Interpretation [...] RDW-SD (test code = 49.8 fL 39-49.9 33259-4) RDW-CV (test code = 15.0 % 12-15.5 788-0) PLT (test code = See_Comment L [Automated 777-3) message] The sy stem which generated this result transmitted reference range : 166 - 358 10*3/ ?L. The reference r susan was not used to interpret this result as normal/abnormal . MPV (test code = 11.2 fL 9.5-12.9 83005-7) NRBC/100 WBC (test See_Comment [Automat ed code = 1905037165) message] The system which generated this result transmitted reference range : 0.0 - 10.0 /100 WBCs. The refer ence range was not u sed to interpret th is result as normal/abnormal . NRBC x10^3 (test code <0.01 See_Comment [Auto mated = 9042797072) message] The s ystem which generated this result transmitted reference range : 10*3/?L. The reference range was not used to interpret this result as normal/abnormal . GRAN MAT (NEUT) % 85.8 % (test code = 770-8) IMM GRAN % (test code 1.10 % = 2927774477) LYMPH % (test code = 6.5 % 736-9) MONO % (test code = 5.1 % 5905-5) EOS % (test code = 1.3 % 713-8) BASO % (test code = 0.2 % 706-2) GRAN MAT x10^3(ANC) 9.20 10*3/uL 1.88-7.09 H (test code = 0807604958) IMM GRAN x10^3 (test 0.12 10*3/uL 0-0.06 H code = 4999629587) LYMPH x10^3 (test code 0.70 10*3/uL 1.32-3.29 L = 731-0) MONO x10^3 (test code 0.55 10*3/uL 0.33-0.92 = 742-7) EOS x10^3 (test code = 0.14 10*3/uL 0.03-0.39 711-2) BASO x10^3 (test code <0.03 0.01-0.07 = 704-7) Lab Interpretation Abnormal (test code = 33239-5) [facility] ON A CART THROMBELASTOGRAPH CITRATED KAOLIN W/[id number] 21:35:00 Test Item Value Reference Range Interpretation Comments R (test code = 6471423945) 6.8 min 5-10 TEG K (test code = 9999238448) 5.2 min 1-3 H Angle (test code = 8600410160) 39.4 deg 53-72 L MA (test code = 6596513030) 35.7 min 50-70 L Lab Interpretation (test code = Abnormal 99327-3) [facility] ON A CART THROMBELASTOGRAPH CITRATED [id number] 16:23:00 Test Item Value Reference Range Interpretation Comments R (test code = 1223468187) 5.9 min 5-10 TEG K (test code = 7337427180) 4.9 min 1-3 H Angle (test code = 8931084845) 44.5 deg 53-72 L MA (test code = 7337477120) 38.7 min 50-70 L Lab Interpretation (test code = Abnormal 49492-2) [facility] WITH [id number] 16:16:00 Test Item Value Reference Range Interpretation Comments WBC (test code = See_Comment [Automated 3590-2) message] The sy stem which generated this result transmitted reference range : 4.30 - 11.10 10*3/?L. The reference range was not used to interpret this result as normal/abnormal . RBC (test code = See_Comment L [Automated 984-8) message] The sy stem which generated this [...] (test code = 50.5 fL 39-49.9 H 67814-4) RDW-CV (test code = 15.1 % 12-15.5 788-0) PLT (test code = See_Comment L [Automated 777-3) message] The sy stem which generated this result transmitted reference range : 166 - 358 10*3/ ?L. The reference r susan was not used to interpret this result as normal/abnormal . MPV (test code = 10.5 fL 9.5-12.9 09579-3) NRBC/100 WBC (test See_Comment [Automat ed code = 4108136478) message] The system which generated this result transmitted reference range : 0.0 - 10.0 /100 WBCs. The refer ence range was not u sed to interpret th is result as normal/abnormal . NRBC x10^3 (test code <0.01 See_Comment [Auto mated = 6281383417) message] The s ystem which generated this result transmitted reference range : 10*3/?L. The reference range was not used to interpret this result as normal/abnormal . GRAN MAT (NEUT) % 73.2 % (test code = 770-8) IMM GRAN % (test code 0.80 % = 7839530337) LYMPH % (test code = 20.1 % 736-9) MONO % (test code = 4.9 % 5905-5) EOS % (test code = 0.9 % 713-8) BASO % (test code = 0.1 % 706-2) GRAN MAT x10^3(ANC) 7.42 10*3/uL 1.88-7.09 H (test code = 2704546878) IMM GRAN x10^3 (test 0.08 10*3/uL 0-0.06 H code = 9610590784) LYMPH x10^3 (test code 2.04 10*3/uL 1.32-3.29 = 731-0) MONO x10^3 (test code 0.50 10*3/uL 0.33-0.92 = 742-7) EOS x10^3 (test code = 0.09 10*3/uL 0.03-0.39 711-2) BASO x10^3 (test code <0.03 0.01-0.07 = 704-7) Lab Interpretation Abnormal (test code = 85903-8) [facility] [id number] 16:09:00 Test Item Value Reference Range Interpretation Comments BASE EXCESS, CORD mEq/L (test code = 8819016441) AC PH, CORD (BEAKER) 7.18-7.38 (test code = 8543125418) PC02, CORD (test code See_Comment [Auto mated message] The = 3981962172) system which g enerated this result transmit ramana reference range : 32 - 66 mmHg. The refer ence range was not used to interpret this result as normal/abnormal . PO2, CORD (test code See_Comment [Autom ated message] The = 1279489028) system which g enerated this result transmit ramana reference range : 10 - 30 mmHg. The refer ence range was not used to interpret this result as normal/abnormal . BICARBONATE, CORD See_Comment [Automate d message] The (test code = system which ge nerated this 0843019910) result transmit ramana reference range : 17 - 27 mEq/L. The refe rence range was not used to interpret this result as normal/abnormal . [facility] [id number] 16:07:00 Test Item Value Reference Range Interpretation Comments VENOUS BASE EXCESS, CORD mEq/L (test code = 8428694077) VENOUS PH, CORD (test 7.25-7.45 code = 9462133809) VENOUS PC02, CORD (test See_Comment [Au tomated message] code = 8462191268) The syste m which generated this result transmitted ref erence range: 27 - 49 mmHg. The reference r susan was not used to interpret this result as normal/abnor mal. VENOUS PO2, CORD (test See_Comment H [Aut omated message] code = 2558994058) The syste m which generated this result transmitted ref erence range: 17 - 41 mmHg. The reference r susan was not used to interpret this result as normal/abnor mal. VENOUS BICARBONATE, CORD See_Comment [A utomated message] (test code = 5643102260) The system which generated this result transmitted ref erence range: 12 - 29 mEq/L. The reference r susan was not used to interpret this result as normal/abnor mal. Lab Interpretation (test Abnormal code = 14803-0) [facility] - SYPHILIS [id number] 14:12:00 Test Item Value Reference Range Interpretation Comments Syphilis IgG/IgM (test Non-reactive Non-reactive code = 10206-2) MICKY (test code = MICKY) Non-reactive - No serologic evidence of T. pallidum infection. Cannot exclude incubating or early syphilis. Submit a second specimen in 2-4 weeks if syphilis is clinically suspected.Equivocal - Further testing to follow.Reactive - Further testing to follow. Lab Interpretation (test Normal code = 58222-2) [facility] Platelets (in units): 1 Units~Indication: 4) Evidence of platelet dysfunction and no response to DDAVP or cryoprecipitate with active hemorrhage or at risk for [id number] 13:34:52 Test Item Value Reference Range Interpretation Comments Unit Blood Type (test O Pos code = 4410) ISBT Blood Type Code (test code = 811298) Unit Number (test code [id number] = 4411) Blood Expiration Date & Time (test code = 360174) Status Information Issued (test code = 4412) Product Identification Platelets (test code = 4413) Product Code (test [id number] Performed at [facility] code = 4414) Laboratory Services [facility] Blood [address] [address]Btfa Free: [phone] A No. [id number] [facility] Platelets (in units): 1 Units~Indication: 1) Platelets < 10,000 for bleeding [id number] 13:34:51 Test Item Value Reference Range Interpretation Comments Unit Blood Type (test O Pos code = 4410) ISBT Blood Type Code (test code = 765253) Unit Number (test code [id number] = 4411) Blood Expiration Date & Time (test code = 645925) Status Information Issued (test code = 4412) Product Identification Platelets (test code = 4413) Product Code (test [id number] Performed at [facility] code = 4414) Laboratory Services - [facility] Blood [address] [address]Oyfz Free: [phone] A No. [id number] [facility]lineHepatitis B Surface [id number] 05:55:00 Test Item Value Reference Range Interpretation Comments HBsAg Semi-Quantitative (test code = 5195-3) [facility] and Screen - ONCE [id number] 04:09:59 Test Item Value Reference Range Interpretation Comments ABO & RH (test code A POSITIVE Performe d at [facility] = 20) Laboratory Serv [facility] Blood Bank[address] [facility] [address]Agpz Free: [phone] A No. [id number] IAT (test code = Negative Performed a t [facility] 1185) Laboratory Serv [facility] Blood [facility] [address] [facility] [address] [address]Thwe Free: [phone] A No. [id number] [facility] WITH [id number] 04:09:00 Test Item Value Reference Range Interpretation Comments WBC (test code = See_Comment [Automated 6690-2) message] The sy stem which generated this result transmitted reference range : 4.30 - 11.10 10*3/?L. The reference range was not used to interpret this result as normal/abnormal . RBC (test code = See_Comment L [Automated 419-8) message] The sy stem which generated this [...] (test code = 50.7 fL 39-49.9 H 15038-8) RDW-CV (test code = 14.9 % 12-15.5 788-0) PLT (test code = See_Comment L [Automated 777-3) message] The sy stem which generated this result transmitted reference range : 166 - 358 10*3/ ?L. The reference r susan was not used to interpret this result as normal/abnormal . MPV (test code = 11.0 fL 9.5-12.9 54718-2) NRBC/100 WBC (test See_Comment [Automat ed code = 7929439292) message] The system which generated this result transmitted reference range : 0.0 - 10.0 /100 WBCs. The refer ence range was not u sed to interpret th is result as normal/abnormal . NRBC x10^3 (test code <0.01 See_Comment [Auto mated = 7379525902) message] The s ystem which generated this result transmitted reference range : 10*3/?L. The reference range was not used to interpret this result as normal/abnormal . GRAN MAT (NEUT) % 76.1 % (test code = 770-8) IMM GRAN % (test code 0.40 % = 1912083325) LYMPH % (test code = 16.3 % 736-9) MONO % (test code = 6.2 % 5905-5) EOS % (test code = 0.8 % 713-8) BASO % (test code = 0.2 % 706-2) GRAN MAT x10^3(ANC) 7.93 10*3/uL 1.88-7.09 H (test code = 5696483357) IMM GRAN x10^3 (test 0.04 10*3/uL 0-0.06 code = 2529018086) LYMPH x10^3 (test code 1.69 10*3/uL 1.32-3.29 = 731-0) MONO x10^3 (test code 0.64 10*3/uL 0.33-0.92 = 742-7) EOS x10^3 (test code = 0.08 10*3/uL 0.03-0.39 711-2) BASO x10^3 (test code <0.03 0.01-0.07 = 704-7) Lab Interpretation Abnormal (test code = 23697-3) [facility] NON-STRESS [id number] 16:13:01Cat I [facility] URINALYSIS W SPECIFIC [id number] 15:39:00 Test Item Value Reference Range Interpretation [...] POCT U APPEAR (test code = 3267) [facility] NON-STRESS [id number] 19:32:31 Reactive [facility]UnA[facility] SPECIFIC GRAVITY 2018-12-18 18:02:00 [...] POCT U APPEAR (test code = 3267) [facility] NON-STRESS [id number] 19:37:16NST NOTE12/13/2018 2:28 PM GA: 36w4d Baseline: 130sVariability: ModerateAccels: +Decels: NoneToco: Quiescent Assessment: Reactive and reassuringPlan: Repeat as scheduledUnDoctors Hospital of LaredoFETAL NON-STRESS [id number] 16:54:14NST reviewed, FHR 140s, moderate variability noted, category I, no contractions.[facility]linePOWY URINALYSIS W SPECIFIC [id number] 15:45:00 Test Item Value Reference Range Interpretation [...] POCT U APPEAR (test code = 3267) [facility]lineGROUP B STREPTOCOCCUS BY [id number] 15:17:00 Test Item Value Reference Range Interpretation Comments Group B Streptococcus by PCR (test Negative Negative code = 01108-1) Lab Interpretation (test code = Normal 10931-4) [facility] WITH [id number] 06:28:00 Test Item Value Reference Range Interpretation Comments WBC (test code = See_Comment [Automated 8091-2) message] The sy stem which generated this result transmitted reference range : 4.30 - 11.10 10*3/?L. The reference range was not used to interpret this result as normal/abnormal . RBC (test code = See_Comment L [Automated 595-8) message] The sy stem which generated this [...] (test code = 54.0 fL 39-49.9 H 55230-7) RDW-CV (test code = 15.9 % 12-15.5 H 788-0) PLT (test code = See_Comment L [Automated 777-3) message] The sy stem which generated this result transmitted reference range : 166 - 358 10*3/ ?L. The reference r susan was not used to interpret this result as normal/abnormal . MPV (test code = 11.6 fL 9.5-12.9 92705-6) IPF % (test code = 5.3 % 1.3-7.7 Platelet count [id number]) measured by fluorescence method. NRBC/100 WBC (test See_Comment [Automat ed code = 4929542526) message] The system which generated this result transmitted reference range : 0.0 - 10.0 /100 WBCs. The refer ence range was not u sed to interpret th is result as normal/abnormal . NRBC x10^3 (test code <0.01 See_Comment [Auto mated = 6217308835) message] The s ystem which generated this result transmitted reference range : 10*3/?L. The reference range was not used to interpret this result as normal/abnormal . GRAN MAT (NEUT) % 80.4 % (test code = 770-8) IMM GRAN % (test code 0.40 % = 6530429763) LYMPH % (test code = 12.4 % 736-9) MONO % (test code = 5.6 % 5905-5) EOS % (test code = 1.0 % 713-8) BASO % (test code = 0.2 % 706-2) GRAN MAT x10^3(ANC) 6.55 10*3/uL 1.88-7.09 (test code = 0739517676) IMM GRAN x10^3 (test 0.03 10*3/uL 0-0.06 code = 9787141807) LYMPH x10^3 (test code 1.01 10*3/uL 1.32-3.29 L = 731-0) MONO x10^3 (test code 0.46 10*3/uL 0.33-0.92 = 742-7) EOS x10^3 (test code = 0.08 10*3/uL 0.03-0.39 711-2) BASO x10^3 (test code <0.03 0.01-0.07 = 704-7) Lab Interpretation Abnormal (test code = 72970-9) [facility] NON-STRESS [id number] 21:11:11NST reactive and reassuring, 1 ctx notedUnAvera [facility] URINALYSIS W SPECIFIC [id number] 15:35:00 Test Item Value Reference Range Interpretation [...] POCT U APPEAR (test code = 3267) [facility] NON-STRESS [id number] 18:37:51Cat I [facility] NON-STRESS [id number] 18:37:51Cat I [facility] NON-STRESS [id number] 18:37:51Cat I [facility] URINALYSIS W SPECIFIC [id number] 17:59:00 Test Item Value Reference Range Interpretation [...] POCT U APPEAR (test code = 3267) [facility] URINALYSIS W SPECIFIC [id number] 17:59:00 Test Item Value Reference Range Interpretation [...] POCT U APPEAR (test code = 3267) [facility] [id number] 17:59:00 Test Item Value Reference Range Interpretation [...] POCT U APPEAR (test code = 3267) [facility] NON-STRESS [id number] 17:50:16 Reactive and reassuringUnAvera [facility] URINALYSIS W SPECIFIC [id number] 15:21:00 Test Item Value Reference Range Interpretation [...] POCT U APPEAR (test code = 3267) [facility] NON-STRESS [id number] 14:37:24Cat 1 NST reactive, reviewed with Dr. [facility] W SPECIFIC [id number] 13:15:00 Test Item Value Reference Range Interpretation [...] POCT U APPEAR (test code = 3267) [facility] NON-STRESS [id number] 14:57:43 nonreactive NST with spontaneous decels to 100s from baseline. Will send to LD for prolonged monitoring.[facility] NON-STRESS TEST 2018-11-19 14:57:43nonreactive NST with spontaneous decels to 100s from baseline. Will send to LD for prolonged monitoring.[facility] NON-STRESS [id number] 14:57:43nonreactive NST with spontaneous decels to 100s from baseline. Will send to LD for prolonged monitoring. [facility] URINALYSIS W SPECIFIC [id number] 14:30:00 Test Item Value Reference Range Interpretation [...] [facility] [id number] 14:30:00 Test Item Value Reference Range Interpretation [...] POCT U APPEAR (test code = 3267) [facility] UR[facility] W SPECIFIC [id number] 14:30:00 Test Item Value Reference Range Interpretation [...] POCT U APPEAR (test code = 3267) [facility] NON-STRESS [id number] 20:17:18NON STRESS TEST INTERPRETATIONDate: 11/15/2018 15:16 Bri [...] NST 2x Leroy De La Rosa MD #[id number] 3:16 PM?[facility] NON-STR[facility] [id number] 20:17:18NON STRESS TEST INTERPRETATIONDate: 11/15/2018 15:16 Bri [...] NST 2x Leroy De La Rosa MD #[id number] 3:16 PM?[facility]linePO[facility] URINALYSIS W SPECIFIC [id number] 19:32:00 Test Item Value Reference Range Interpretation [...] POCT U APPEAR (test code = 3267) [facility] URINALYSIS W SPECIFIC [id number] 19:32:00 Test Item Value Reference Range Interpretation [...] POCT U APPEAR (test code = 3267) [facility] NON-STRESS [id number] 17:13:56 Reactive and reassuringUnAvera [facility] Hospital URINALYSIS W SPECIFIC [id number] 15:56:00 Test Item Value Reference Range Interpretation [...] POCT U APPEAR (test code = 3267) [facility]
[2021-09-27 15:56] LABS: Absolute Lymphocytes (CBC) 0.6 K/uL (0.7-4.9); Lymphocytes % 9.8 % (15.3-44.8); MPV 9.3 fL (7.6-11.3)
[2021-09-27 16:03] LABS: Protime INR 1.2
[2021-09-27 16:04] LABS: Hematocrit 12.5 % (36.0-45.0)
[2021-09-27 16:12] LABS: Bilirubin Total 0.4 mg/dL (0.2-1.0); Potassium 3.9 mmol/L (3.5-5.1)
[2021-09-27 16:14] LABS: Ferritin 16.6 ng/mL (8-388)
--- NOTE | 2021-09-27 16:47 | ER ---
Nurse's Notes [facility] Name: Bri Boyd Age: 36 yrs Sex: Female : 1985 Arrival Date: 09/27/2021 Time: 14:04 Bed 6 Private MD: Diagnosis: Glanzmann's Thrombasthenia;Anemia, unspecified;Abnormal uterine and vaginal bleeding, unspecified;Thrombocytopenia, unspecified Presentation: 09/27 14:31 Chief complaint: Patient states: vaginal bleeding x1 week, stated "im having to change vg1 three pads in one hour"; c/o dizziness and fatigue and nausea. also lower back pain. Coronavirus screen: Vaccine status: Patient reports being unvaccinated. Client denies travel out of the [place] in the last 14 days. Ebola Screen: Patient denies exposure to infectious person. Patient denies travel to an Ebola-affected area in the 21 days before illness onset. Initial Sepsis Screen: Does the patient meet any 2 criteria? No. Patient's initial sepsis screen is negative. Does the patient have a suspected source of infection? No. Patient's initial sepsis screen is negative. Risk Assessment: Do you want to hurt yourself or someone else? Patient reports no desire to harm self or others. Onset of symptoms was September 20, 2021. 14:31 Method Of Arrival: Wheelchair vg1 14:31 Acuity: KARIE 3 vg1 Triage Assessment: 14:33 General: Appears uncomfortable, Behavior is cooperative. Pain: Complains of pain in vg1 back. : Reports vaginal bleeding that is with clots, heavy flow. 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 - Family history:: not pertinent. - Social history:: Smoking status: unknown. - Hospitalizations: : The patient was recently seen at [facility]. Screenin:15 Abuse screen: Denies threats or abuse. Nutritional screening: No deficits noted. 6 Tuberculosis screening: No symptoms or risk factors identified. Fall Risk IV access (20 points). Gait- Weak (10 pts.). Assessment: 16:00 General: Appears uncomfortable, well developed, pale. Behavior is calm, cooperative. jh6 Pain: Complains of pain in pelvis Pain does not radiate. Pain currently is 2 out of 10 on a pain scale. Quality of pain is described as crampy, Is continuous. Cardiovascular: No deficits noted. Respiratory: No deficits noted. : Reports vaginal bleeding that is bright red, with clots. 17:47 Reassessment: No changes from previously documented assessment. Patient and/or family jg9 updated on plan of care and expected duration. Pain level reassessed. Patient is alert, oriented x 3, equal unlabored respirations, skin warm/dry/pink. Vital Signs: 14:31 BP 93 / 44; Pulse 76; Resp 16; Temp 98.6(TE); Pulse Ox 100% on R/A; Weight 79.38 kg; vg1 Height 5 ft. 6 in. (167.64 cm); Pain 9/10; 16:29 BP 102 / 42; Pulse 71; Resp 16; Pulse Ox 100% ; Pain 2/10; jh6 17:30 BP 113 / 65; Pulse 67; Resp 18 S; Pulse Ox 100% ; jg9 18:20 BP 110 / 62; Pulse 83; Resp 14 S; Pulse Ox 100% on Non-rebreather mask; jg9 14:31 Body Mass Index 28.25 (79.38 kg, 167.64 cm) vg1 Vitals: 16:29 Cardiac Rhythm Assessment Regular Sinus rhythm. 6 ED Course: 14:04 Patient arrived in ED. mr 14:33 Triage completed. vg1 14:33 Arm band placed on. vg1 14:37 Raza De León MD is Attending Physician. rn 16:15 Placed in gown. Bed in low position. Call light in reach. Side rails up X2. 6 16:15 Inserted saline lock: 20 gauge in left EJ, using aseptic technique. Blood collected. 6 16:30 Ly Scott, RN is Primary Nurse. jh6 16:59 initiated transfer to [facility]. bd 17:19 pt accepted in transfer to [facility] by Dr Rock, admin approval given by Hortensia Wyman. 17:47 No apparent distress. Resting quietly. jg9 18:31 Bb Add On Sent. jg9 Administered Medications: 18:20 Drug: Benadryl (diphenhydrAMINE) 25 mg Route: IVP; Site: right jugular; jg9 Medication: 17:47 VIS not applicable for this client. jg9 Outcome: 16:46 Discharge ordered by . rn 16:48 ER care complete, transfer ordered by MD. rn 19:22 Transferred by ground EMS Note: [place] [id number] 19:22 Condition: stable 19:24 [address] [facility] [address] [facility] Signatures: Rehana Campuzano HaroldoInga Roman, MD MD rn Garcia, Victoria RN RN vg1 Ly Scott, RN MCKENZIE jh6 Ly Edwards, RN RN jg9 Corrections: (The following items were deleted from the chart) 14:34 14:31 Chief complaint: Patient states: vaginal bleeding x1 week, stated "im having to vg1 change three pads in one hour"; c/o dizziness and fatigue and nausea. vg1 14:35 14:33 : Reports vaginal bleeding that is heavy flow vg1 vg1 16:44 16:41 Hospitalizations: No recent hospitalization is reported. rn rn
--- NOTE | 2021-09-27 16:47 | EDPHYS ---
Physician Documentation [facility] Name: Bri Boyd Age: 36 yrs Sex: Female : 1985 Arrival Date: 09/27/2021 Time: 14:04 Bed 6 Private MD: ED Physician Raza De León HPI: 09/27 16:41 This 36 yrs old Female presents to ER via Wheelchair with complaints of Vaginal rn Bleeding. 16:41 The patient presents with vaginal bleeding that is. Onset: The symptoms/episode rn began/occurred 2 week(s) ago. Modifying factors: The symptoms are alleviated by nothing, the symptoms are aggravated by nothing. Associated signs and symptoms: Pertinent positives: vaginal bleeding, Pertinent negatives: fever. Severity of symptoms: At their worst the symptoms were moderate, in the emergency department the symptoms are unchanged. The patient has experienced similar episodes in the past. The patient has been recently been admitted at [facility]. Pt reports still having vaginal bleeding, admitted here last week and transfused, has Glanzmann's Thrombasthenia, has been bleeding since biopsy at [facility] a few weeks ago, is now 3rd admission for continued bleeding and transfusion. Reports syncopal episode at home with generalized weakness. Was discharged with hemoglobin> 7. . 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 - Family history:: not pertinent. - Social history:: Smoking status: unknown. - Hospitalizations: : The patient was recently seen at [facility]. ROS: 16:41 Constitutional: Negative for fever, chills, and weight loss, Eyes: Negative for injury, rn pain, redness, and discharge, Neck: Negative for injury, pain, and swelling, Cardiovascular: Negative for chest pain, palpitations, and edema, Respiratory: Negative for shortness of breath, cough, wheezing, and pleuritic chest pain, Abdomen/GI: Negative for abdominal pain, nausea, vomiting, diarrhea, and constipation, Back: Negative for injury and pain, : + vaginal bleeding MS/Extremity: Negative for injury and deformity, Skin: Negative for injury, rash, and discoloration, Neuro: + generalized weakness and syncope Exam: 16:41 Constitutional: Pale patient, no acute distress Head/Face: Normocephalic, atraumatic. rn Eyes: Pale conjunctivae Cardiovascular: Regular rate and rhythm. No pulse deficits. Respiratory: No increased work of breathing, no retractions or nasal flaring. Abdomen/GI: Soft, non-tender Skin: Warm, dry MS/ Extremity: Pulses equal, no cyanosis. Neuro: Awake and alert, GCS 15 Vital Signs: 14:31 BP 93 / 44; Pulse 76; Resp 16; Temp 98.6(TE); Pulse Ox 100% on R/A; Weight 79.38 kg; vg1 Height 5 ft. 6 in. (167.64 cm); Pain 9/10; 16:29 BP 102 / 42; Pulse 71; Resp 16; Pulse Ox 100% ; Pain 2/10; jh6 17:30 BP 113 / 65; Pulse 67; Resp 18 S; Pulse Ox 100% ; jg9 18:20 BP 110 / 62; Pulse 83; Resp 14 S; Pulse Ox 100% on Non-rebreather mask; jg9 14:31 Body Mass Index 28.25 (79.38 kg, 167.64 cm) vg1 MDM: 14:37 Patient medically screened. rn 16:41 Differential diagnosis: dysmenorrhea, bleeding diathesis with anemia. Data reviewed: rn vital signs, nurses notes, lab test result(s), and as a result, I will admit patient. Counseling: I had a detailed discussion with the patient and/or guardian regarding: the historical points, exam findings, and any diagnostic results supporting the discharge/admit diagnosis, lab results, the need to transfer to another facility, for higher level of care, [facility] does not immediately have the required specialist. 09/27 14:39 Order name: CBC with Diff rn 09/27 14:39 Order name: CMP; Complete Time: 16:30 rn 09/27 14:39 Order name: Type And Screen rn 09/27 14:42 Order name: Fibrinogen; Complete Time: 16:30 rn 09/27 14:42 Order name: Ferritin; Complete Time: 16:30 rn 09/27 14:42 Order name: TRANSFERRIN SAT/IRON BINDING; Complete Time: 16:30 rn 09/27 15:58 Order name: Protime (+INR); Complete Time: 16:30 EDAZ 09/27 15:58 Order name: PTT, Activated Partial Thromb; Complete Time: 16:30 EDAZ 09/27 16:47 Order name: Bb Add On bd 09/27 16:50 Order name: Packed RBC Leukored EDAZ 09/27 14:39 Order name: IV Start; Complete Time: 16:30 rn 09/27 14:39 Order name: Cardiac monitoring; Complete Time: 16:30 rn 09/27 14:39 Order name: O2 Sat Monitoring; Complete Time: 16:30 rn 09/27 16:02 Order name: Labs - recollect needed: recollect type and screen; Complete Time: 16:26 bd Administered Medications: 18:20 Drug: Benadryl (diphenhydrAMINE) 25 mg Route: IVP; Site: right jugular; jg9 Disposition Summary: 09/27/21 16:48 Transfer Ordered Transfer Location: [facility] rn Reason: Higher level of care rn Condition: Stable(09/27/21 16:48) rn Problem: an ongoing problem(09/27/21 16:48) rn Symptoms: have improved(09/27/21 16:48) rn Accepting Physician: (09/27/21 19:24) jh6 Diagnosis - Glanzmann's Thrombasthenia rn - Anemia, unspecified(09/27/21 16:48) rn - Abnormal uterine and vaginal bleeding, unspecified rn - Thrombocytopenia, unspecified(09/27/21 16:48) rn Forms: - Medication Reconciliation Form rn - SBAR form rn Signatures: Dispatcher [employer] EDAZ Rehana Campuzano Roman, MD MD rn Garcia, Victoria RN RN vg1 Ly Scott RN MCKENZIE jh6 Ly Edwards, RN RN jg9 Corrections: (The following items were deleted from the chart) 15:57 14:41 PROTIME (+INR)+COAG.LAB.BRZ ordered. EDMS EDMS 15:57 14:41 PTT, ACTIVATED+COAG.LAB.BRZ ordered. EDMS EDMS 16:44 16:41 Hospitalizations: No recent hospitalization is reported. rn rn 16: 16:46 Home rn rn 16: 16:46 an ongoing problem rn rn 16: 16:46 have improved rn rn 16: 16:46 Stable rn rn 16: 16:46 Anemia, unspecified rn rn 16: 16:46 Thrombocytopenia, unspecified rn rn 16: 16:46 Glanzmann's Thrombasthenia rn rn 19:24 16:48 rn jh6
[2021-09-27] MEDS ORDERED: NA CHLORIDE 0.9% 500 ML ONE (18:06)
[2021-09-27] MEDS ORDERED: DIPHENHYDRAMINE 50 MG/ML VIAL ONE ×2 (18:13→18:34)
[2021-09-27 19:30] LABS: Anisocytosis 1+; Blood Morphology Comment NOTED (NOT SEEN); Hypochromasia 1+; Platelet Estimate DECR; White Blood Cell Scan OK (OK)
[2021-09-27 19:34] VITALS: TEMP 98.6; O2SAT 100
[2021-09-27 19:54] VITALS: BP 110/62
== END 2021-09-27 19:24 | disposition short-term general hospital (02) ==
LOC: ER 14:03
PROC: 30233N1 Transfusion of Nonautologous Red Blood Cells into Peripheral Vein, Percutaneous Approach (ICD-10-PCS; principal; 2021-09-27)
DX: D50.0 Iron deficiency anemia secondary to blood loss (chronic) (principal); D50.1 Sideropenic dysphagia; D69.1 Qualitative platelet defects; D69.6 Thrombocytopenia, unspecified; Z88.6 Allergy status to analgesic agent
CPT/HCPCS: 36430; 85025; 36415; 86900; 85384; 86850; 85610; 86901; 85730; 82728; 83540; 80053; 86922 ×2; 84466; J1200; P9016; J7040; 96374; 99285

== ENCOUNTER 2022-01-01 13:08 | Emergency (ER) | payer SELFPAY ==
--- OUTSIDE RECORDS SUMMARY | 2022-01-01 13:22 | XMS REPORT | Continuity of Care Document ---
:1985 Author Organization [facility] t Address [address] [place] [address] Care Team Providers Name Role Phone LOUIS BARNARD Primary Care Physician Unavailable Casey Cummins Attending Clinician Unavailable Ruthy Hunter Attending Clinician NICOLE SHANKS Attending Clinician Unavailable Pgy3 Attending Clinician Unavailable Sandi Richard LVN Attending Clinician NGOC QUINTEROS Attending Clinician Unavailable Florencio Lr MD Attending Clinician Ngoc Quinteros MD Attending Clinician Judi Merino MD Attending Clinician Johanny Martel RN Attending Clinician Unavailable Chanel Fabian MD Attending Clinician Doctor Unassigned, Carrizo Hill Attending Clinician Unavailable MATIAS ROCK Attending Clinician Unavailable RUTHY DICK Attending Clinician Unavailable FLORENCIO LR Attending Clinician Unavailable Nicole Chappell Attending Clinician Unavailable DEBRA LÓPEZ Attending Clinician Unavailable Misael RINCON, Aracelis Attending Clinician Unavailable Samuel RINCON, Melinda [place]lette Attending Clinician Unavailable Peggy SANDRA, Jesse Monroe Attending Clinician [facility], [facility] Attending [facility]ician Unavailable Roger MARIEE, Louis Guadalupe Attending Clinician Won SANDRA, Gilson Wren Attending Clinician [phone] Rocío SANDRA, Alla Lion Attending Clinician Dl SANDRA, Ree Attending Clinician Ultrasound, [facility] Attending Clinician Unavailable Risk, Qfq-Xzxbk-Ka/High Attending Clinician Unavailable Syd MARIEE, Max Mayfield Attending Clinician [place], [facility] Resident Attending Clinician Unavailable 2, [facility] Usg Room Attending Clinician Unavailable Aries SANDRA, Ruba Attending Clinician Faculty, [facility] Attending Clinician Unavailable Nickolas SANDRA, Lorrie Quezada Attending Clinician Casey Cummins Admitting Clinician Unavailable NGOC QUINTEROS Admitting Clinician Unavailable Ngoc Quinteros MD Admitting Clinician MATIAS ROCK Admitting Clinician Unavailable FLORENCIO LR Admitting Clinician Unavailable Nicole Chappell Admitting Clinician Unavailable Jesse Woods MD Admitting Clinician Dl SANDRA, Ree Admitting Clinician Lorrie Olmos MD Admitting Clinician Payers Payer Name Policy Type Policy Number Effective Date Expiration Date S ource Problems Condition Condition Condition Status Onset Resolution Last Treating Co mments Source Name Details Category Date Date Treatment Clinician Date Acute Acute Disease Active Univers blood loss blood loss 6-22 it y of anemia anemia 00:00: [place] 00 Medical Branch Menorrhagi Menorrhagi Disease Active U nivers a with a with 6-13 [place] irregular irregular 00[place] cycle [place] Anemia Anemia Disease Active 2022-0 Univers 5-10 ity of 00:00: Medical Branch Abnormal Abnormal Disease Active 2018-04 Unive rs TSH TSH 0-18 ity of 00:: Medical Branch Fatty Fatty Disease Active 2018-04 Univers liver liver 0-18 ity of 00:00: Medical Branch Other Other Disease Active 2018-04 Univers fatigue fatigue 0-18 ity of 00:00: Medical Branch Severe Severe Disease Active Univers pre-eclamp pre-eclamp 9-17 it y of richard, richard, 00:00: [place] 00 Me dical condition condition Bran ch or or complicati complicati on on Research Research Disease Active Overview: Un brayden study study 8 Formattin ity of patient: patient: 00:00: g of this [place] as ECCCO: ECCCO: 00 note Medical Group C Group C might be Branch different from the original. Notice of research participa tion in the ECCCO Trial: IRB # [id number]. PI-Destin De La Rosa MD. Date of informed consent: ____. Patient consented to participa te in a research study entitled: Electroni c Confirmed versus Conventio nal Consentin g Process. Patient randomize d to Study group C. Sarkis recio consent to be completed prior to arrival [...] nivers anemia anemia 8-05 ity of 00:00: Medical Branch Obesity Obesity Disease Active Univers (BMI (BMI 7-08 ity of 30-39.9) 30-39.9) 00:00: Medical Branch Rubella Rubella Disease Active Univers non-immune non-immune 6-25 it y of status, status, 00:00: [place] antepartum antepartum 00 Me dical Branch ASCUS with ASCUS with Disease Active 2019-0 Overview : Univers positive positive 2-19 Formattin [...] History of Disease Active Overview : Univers 12 Formattin ity of section section 00:00: g of this [place] 00 note Medical might be Branch different from the original. 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 00:[place] en[place] enin 00 Medical disorder disorder Branch Chronic Chronic Disease Active Univers hepatitis hepatitis 424 ity of C without C without 00:00[place] hepatic hepatic 00 Medical coma coma Branch Low back Low back Disease Active Unive rs pain pain - ity of 00:00: [place] 00 Medical Branch Allergies, Adverse Reactions, Alerts Allergy Allergy [...] Woman[facility] 00:00: [facility] [place] PENICILL DRUG Active Unknown-Cmnt Un brayden IN INGREDI 06-05 ity of 00:00: [place] Medical Branch Penicill Propensi Active Unknown - 2017-0 Uni vers in ty to See comments 2-19 ity of adverse 00:00: [place] reaction 00 Medical s Branch ASPIRIN DRUG Active Unknown-Cmnt Uni vers INGREDI 12-24 ity of 00:00: [place] 00 Medical Branch Aspirin Propensi Active Unknown - Unable to U nivers ty to See comments 12-24 take d/t it y of adverse 00:00: clotting [place] reaction 00 disorder. Medic al s Branch Social History Social Habit Start Date Stop Date Quantity Comments Source Alcohol intake 2021-10-11 2021-10-11 0 /d University of 00:00:00 00:00:00 [facility] Exposure to 2021-09-25 2021-10-05 Not sure [facility] SARS-CoV-2 (event) 00:00:00 09:00:00 [facility] Education 2021-08-24 2021-08-24 14 University 00:00:00 00:00:00 [facility] Tobacco Comment 2018-05-29 2018-05-29 1 pack per week; Uni versity of 00:00:00 00:00:00 quit 2016 [facility] Tobacco use and 2018-05-29 2018-05-29 Smokeless Universit y of exposure 00:00:00 00:00:00 tobacco non-user [facility] [place] Cigarettes smoked 2018-05-29 2018-05-29 Univers ity of current (pack per 00:00:00 00:00:00 [place] ) - Reported Branch Cigarette 2018-05-29 2018-05-29 University of pack-years 00:00:00 00:00:00 [facility] History of tobacco 2015-06-21 Cigarette Smoker University of use 00:00:00 [facility] Sex Assigned At [birth year] Universit y of 00:00:00 00:00:00 [facility] Smoking Status Start Date Stop Date Source Ex-smoker 2018-05-29 00:00:00 2018-05-29 00:00:00 Universi ty of [facility] Medications Ordered Filled Start Stop Current Ordering Indication Dosage Frequency Signature Comments Components Source Medication Medication Date Date Medication? Clinician (SIG) Name Name ferrous Yes 300mg 300 mg, Univer s sulfate 300 6-29 Oral, ity of mg (60 mg 00:58: Q48H, [place] iron)/5 mL 00 First dose Med ical solution (after Branch 300 mg last modificati on) on Mon10/12/21 at 1999, Until Discontinu ed, Routine ferrous Yes 300mg 300 mg, Univer s sulfate 300 -29 Oral, ity of mg (60 mg 00:58: Q48H, [place] iron)/5 mL 00 First dose Med ical solution (after Branch 300 mg last modificati on) on Mon10/12/21 at 1999, Until Discontinu ed, Routine polyethylen Yes [id number] 17g Take 1 Univers e glycol 6-29 Packet by ity of 3350 17 00:00: mouth [place] gram powder 00 daily. Medica l Branch polyethylen Yes [id number] 17g Take 1 Univers e glycol 6-29 Packet by ity of 3350 17 00:00: mouth [place] gram powder 00 daily. Medica l Branch polyethylen Yes [id number] 17g Take 1 Univers e glycol 6-29 Packet by ity of 3350 17 00:00: mouth [place] gram powder 00 daily. Medica l Branch polyethylen Yes [id number] 17g Take 1 Univers e glycol 6-29 Packet by ity of 3350 17 00:00: mouth [place] gram powder 00 daily. Medica l Branch polyethylen Yes [id number] 17g Take 1 Univers e glycol 6-29 Packet by ity of 3350 17 00:00: mouth [place] gram powder 00 daily. Medica l Branch polyethylen Yes [id number] 17g Take 1 Univers e glycol 6-29 Packet by ity of 3350 17 00:00: mouth [place] gram powder 00 daily. Medica l Branch ibuprofen 2021- No ibuprofen Un brayden 800 mg 10-12 800 mg ity of tablet 12:07: 00:00 tablet [place] 49 :00 TAKE 1 Medical TABLET BY Branch MOUTH TWICE A DAY NEEDED HYDROcodone 2021- No hydrocodon Univers -acetaminop 10-12 e 10 ity of hen 10-325 12:07: 00:00 mg-acetami [place] mg tablet 49 :00 nophen 325 Medi frank mg tablet Branch TAKE 1 TABLET BY MOUTH FOUR TIMES A DAY NEEDED FOR 30 DAYS gabapentin 2021-0 2021- No gabapentin Univers 100 mg 10-12 100 mg ity of capsule 12:07: 00:00 capsule [place] 49 :00 TAKE 1 Medical CAPSULE BY Branch MOUTH EVERY DAY AT BEDTIME FOR 30 DAYS acetaminoph 2021-0 202- No acetaminop Univers en-codeine 10-12 hen 300 ity o f 300-30 mg 12:07: 00:00 mg-codeine [place] tablet 49 :00 30 mg Medical tablet Branch TAKE 1 TABLET BY MOUTH 2-3 TIMES EVERY DAY NEEDED FOR PAIN. HYDROmorpho 2021-0 2021- No .3mg 0.3 mg, Un brayden ne 10-12 Slow IV ity of (DILAUDID) 00:36: 01:21 Push, [place] injection 44 :00 Q6HPRN, 1 Medic al 0.3 mg dose, Branch Starting on Mon10/11/21 at 1936, Until Mon10/11/21 at 2020, Routine, Pain (scale 7-10)
U se approved by (Faculty): [facility] gabapentin 0 Yes [id number] 300mg Take 1 Univers 300 mg -28 capsule by ity of capsule 00:00: mouth 3 [place] 00 (three) Medical times Branch daily. HYDROcodone 0 Yes [id number] 1{tbl} Take 1 Un brayden -acetaminop 6-28 tablet by ity of hen 10-325 00:00: mouth [place] mg tablet 00 every 4 Medical (four) Branch hours as needed for Pain (scale 4-6) for up to 20 doses. Indication s: acute pain methocarbam 2021-0 Yes [id number] 500mg Take 1 Univers oL 500 mg 6-28 tablet by ity o f tablet 00:00: mouth 4 [place] 00 (four) Medical times Branch daily as needed for Pain (scale 4-6). phenazopyri 0 Yes [id number] 200mg Take 1 Univers dine 200 mg 6-28 tablet by ity of tablet 00:00: mouth 3 [place] 00 (three) Medical times Branch daily. sennosides- 0 Yes [id number] 1{tbl} Take 1 Univers docusate 6-28 tablet by ity of sodium 00:00: mouth 2 [place] 8.6-50 mg 00 (two) Medical per tablet times Branch daily. simethicone 2022-0 Yes [id number] 160mg Take 2 Univers 80 mg 6-28 tablets by ity of chewable 00:00: mouth [place] tablet 00 after Medical meals and Branch at bedtime. gabapentin 2021-0 Yes [id number] 300mg Take 1 Univers 300 mg 6-28 capsule by ity of capsule 00:00: mouth 3 [place] 00 (three) Medical times Branch daily. HYDROcodone 2021-0 Yes [id number] 1{tbl} Take 1 Un brayden -acetaminop 6-28 tablet by ity of hen 10-325 00:00: mouth [place] mg tablet 00 every 4 Medical (four) Branch hours as needed for Pain (scale 4-6) for up to 20 doses. Indication s: acute pain methocarbam 202-0 Yes [id number] 500mg Take 1 Univers oL 500 mg 6-28 tablet by ity o f tablet 00:00: mouth 4 [place] 00 (four) Medical times Branch daily as needed for Pain (scale 4-6). phenazopyri 2021-0 Yes [id number] 200mg Take 1 Univers dine 200 mg 6-28 tablet by ity of tablet 00:00: mouth 3 [place] 00 (three) Medical times Branch daily. sennosides- 2021-0 Yes [id number] 1{tbl} Take 1 Univers docusate 6-28 tablet by ity of sodium 00:00: mouth 2 [place] 8.6-50 mg 00 (two) Medical per tablet times Branch daily. simethicone 2021-0 Yes [id number] 160mg Take 2 Univers 80 mg 6-28 tablets by ity of chewable 00:00: mouth [place] tablet 00 after Medical meals and Branch at bedtime. gabapentin 2-0 Yes [id number] 300mg Take 1 Univers 300 mg 6-28 capsule by ity of capsule 00:00: mouth 3 [place] 00 (three) Medical times Branch daily. HYDROcodone 2022-0 Yes [id number] 1{tbl} Take 1 Un brayden -acetaminop 6-28 tablet by ity of hen 10-325 00:00: mouth [place] mg tablet 00 every 4 Medical (four) Branch hours as needed for Pain (scale 4-6) for up to 20 doses. Indication s: acute pain methocarbam 2022-0 Yes [id number] 500mg Take 1 Univers oL 500 mg 6-28 tablet by ity o f tablet 00:00: mouth 4 [place] 00 (four) Medical times Branch daily as needed for Pain (scale 4-6). phenazopyri 2021-0 Yes [id number] 200mg Take 1 Univers dine 200 mg 6-28 tablet by ity of tablet 00:00: mouth 3 [place] 00 (three) Medical times Branch daily. sennosides- 2021-0 Yes [id number] 1{tbl} Take 1 Univers docusate 6-28 tablet by ity of sodium 00:00: mouth 2 [place] 8.6-50 mg 00 (two) Medical per tablet times Branch daily. simethicone 2021-0 Yes [id number] 160mg Take 2 Univers 80 mg 6-28 tablets by ity of chewable 00:00: mouth [place] tablet 00 after Medical meals and Branch at bedtime. gabapentin 2021-0 Yes [id number] 300mg Take 1 Univers 300 mg 6-28 capsule by ity of capsule 00:00: mouth 3 [place] 00 (three) Medical times Branch daily. HYDROcodone 2021-0 Yes [id number] 1{tbl} Take 1 Un brayden -acetaminop 6-28 tablet by ity of hen 10-325 00:00: mouth [place] mg tablet 00 every 4 Medical (four) Branch hours as needed for Pain (scale 4-6) for up to 20 doses. Indication s: acute pain methocarbam 2021-0 Yes [id number] 500mg Take 1 Univers oL 500 mg 6-28 tablet by ity o f tablet 00:00: mouth 4 [place] 00 (four) Medical times Branch daily as needed for Pain (scale 4-6). phenazopyri 2021-0 Yes [id number] 200mg Take 1 Univers dine 200 mg 6-28 tablet by ity of tablet 00:00: mouth 3 [place] 00 (three) Medical times Branch daily. sennosides- 2021-0 Yes [id number] 1{tbl} Take 1 Univers docusate 6-28 tablet by ity of sodium 00:00: mouth 2 [place] 8.6-50 mg 00 (two) Medical per tablet times Branch daily. simethicone 2021-0 Yes [id number] 160mg Take 2 Univers 80 mg 6-28 tablets by ity of chewable 00:00: mouth [place] tablet 00 after Medical meals and Branch at bedtime. gabapentin 2022-0 Yes [id number] 300mg Take 1 Univers 300 mg 6-28 capsule by ity of capsule 00:00: mouth 3 [place] 00 (three) Medical times Branch daily. HYDROcodone 202-0 Yes [id number] 1{tbl} Take 1 Un brayden -acetaminop 6-28 tablet by ity of hen 10-325 00:00: mouth [place] mg tablet 00 every 4 Medical (four) Branch hours as needed for Pain (scale 4-6) for up to 20 doses. Indication s: acute pain methocarbam 2022-0 Yes [id number] 500mg Take 1 Univers oL 500 mg 6-28 tablet by ity o f tablet 00:00: mouth 4 [place] 00 (four) Medical times Branch daily as needed for Pain (scale 4-6). phenazopyri 2021-0 Yes [id number] 200mg Take 1 Univers dine 200 mg 6-28 tablet by ity of tablet 00:00: mouth 3 [place] 00 (three) Medical times Branch daily. sennosides- 2021-0 Yes [id number] 1{tbl} Take 1 Univers docusate 6-28 tablet by ity of sodium 00:00: mouth 2 [place] 8.6-50 mg 00 (two) Medical per tablet times Branch daily. simethicone 202-0 Yes [id number] 160mg Take 2 Univers 80 mg 6-28 tablets by ity of chewable 00:00: mouth [place] tablet 00 after Medical meals and Branch at bedtime. gabapentin 2021-0 Yes [id number] 300mg Take 1 Univers 300 mg 6-28 capsule by ity of capsule 00:00: mouth 3 [place] 00 (three) Medical times Branch daily. HYDROcodone 2022-0 Yes [id number] 1{tbl} Take 1 Un brayden -acetaminop 6-28 tablet by ity of hen 10-325 00:00: mouth [place] mg tablet 00 every 4 Medical (four) Branch hours as needed for Pain (scale 4-6) for up to 20 doses. Indication s: acute pain methocarbam 2022-0 Yes [id number] 500mg Take 1 Univers oL 500 mg 6-28 tablet by ity o f tablet 00:00: mouth 4 [place] 00 (four) Medical times Branch daily as needed for Pain (scale 4-6). phenazopyri Yes [id number] 200mg Take 1 Univers dine 200 mg 6-28 tablet by ity of tablet 00:00: mouth 3 [place] 00 (three) Medical times Branch daily. sennosides- Yes [id number] 1{tbl} Take 1 Univers docusate 6-28 tablet by ity of sodium 00:00: mouth 2 [place] 8.6-50 mg 00 (two) Medical per tablet times Branch daily. simethicone Yes [id number] 160mg Take 2 Univers 80 mg 6-28 tablets by ity of chewable 00:00: mouth [place] tablet 00 after Medical meals and Branch at bedtime. phenazopyri 2021- Yes 200mg 200 mg, U nivers dine 10-11 Oral, TID, ity of (PYRIDIUM) 19:00: 18:59 9 doses, [place] tablet 200 00 :00 First dose Med ical mg on Mon Branch 10/11/21 at 1400, Last dose on [place] 10/14/21 at 0800, Routine phenazopyri 2021- Yes 200mg 200 mg, U nivers dine 10-11 Oral, TID, ity of (PYRIDIUM) 19:00: 18:59 9 doses, [place] tablet 200 00 :00 First dose Med ical mg on Mon Branch 10/11/21 at 1400, Last dose on [place] 10/14/21 at 0800, Routine simethicone Yes 160mg 160 mg, Un brayden (GAS RELIEF 10-11 Oral, ity of (SIMETHICON 14:15: PC+HS, [place] E)) 00 First dose Medical chewable on [facility] Branch tablet 160 10/11/21 at mg 0915, Until Discontinu ed, Routine simethicone 0 Yes 160mg 160 mg, Un brayden (GAS RELIEF 10-11 Oral, ity of (SIMETHICON 14:15: PC+HS, [place] E)) 00 First dose Medical chewable on [facility] Branch tablet 160 10/11/21 at mg 0915, Until Discontinu ed, Routine simethicone 2021- No 120mg 120 mg, U nivers (GAS RELIEF 10-11 Oral, ity of (SIMETHICON 14:00: 14:11 PC+HS, [place] E)) 00 :54 First dose Medical chewable on Mon Branch tablet 120 10/11/21 at mg 0900, Until Discontinu ed, Routine HYDROmorpho 202- No .3mg 0.3 mg, Un brayden ne 10-11 Slow IV ity of (DILAUDID) 13:12: 17:58 Push, [place] injection 30 :00 Q6HPRN, 1 Medic al 0.3 mg dose, Branch Starting on 10/11/21 at 0812, Until Discontinu ed, Routine, Pain (scale 7-10)
U se approved by (Faculty): [facility] HYDROcodone 0 Yes 1{tbl} 1 tablet, Univers -acetaminop 10-11 Oral, ity of hen (NORCO) 13:11: Q4HPRN, [place] as 10-325 mg 54 Starting Medica l tablet 1 on Mon Branch tablet 10/11/21 at 0811, Until Discontinu ed, Routine, Pain (scale 4-6) HYDROcodone 0 Yes 1{tbl} 1 tablet, Univers -acetaminop -27 Oral, ity of hen (NORCO) 13:11: Q4HPRN, [place] 10-325 mg 54 Starting Medica l tablet 1 on Mon Branch tablet 10/11/21 at 0811, Until Discontinu ed, Routine, Pain (scale 4-6) sennosides- 2021-0 Yes 1{tbl} 1 tablet, Univers docusate -27 Oral, BID, ity o f sodium 13:00: First dose [place] (SENOKOT-S) 00 (after Medica l 8.6-50 mg last Branch per tablet modificati 1 tablet on) on Mon10/11/21 at 0800, Until Discontinu ed, Routine sennosides- 2021-0 Yes 1{tbl} 1 tablet, Univers docusate 6-27 Oral, BID, ity o f sodium 13:00: First dose [place] (SENOKOT-S) 00 (after Medica l 8.6-50 mg last Branch per tablet modificati 1 tablet on) on Mon10/11/21 at 0800, Until Discontinu ed, Routine diphenhydrA 0 2021- No 25mg 25 mg, Uni vers MINE 10-11 Oral, ity of (BENADRYL) 04:15: 03:20 ONCE, 1 [place] tablet 25 00 :00 dose, On Medica l mg Sun Branch 10/10/21 at 2315, Routine melatonin 2021-0 Yes 3mg 3 mg, Univers (MELATIN) 10-11 Oral, ity of tablet 3 mg 03:02: QHSPRN, [place] 34 Starting Medical on [facility] 10/10/21 at 2202, Until Discontinu ed, Routine, Insomnia melatonin 0 Yes 3mg 3 mg, Univers (MELATIN) 10-11 Oral, ity of tablet 3 mg 03:02: QHSPRN, [place] as 34 Starting Medical on [facility] 10/10/21 at 2202, Until Discontinu ed, Routine, Insomnia diphenhydrA 0 Yes 50mg 50 mg, [facility] 10-10 Intravenou ity of (BENADRYL) 20:50: s, QHSPRN, [place] injection 29 Starting Medica l 50 mg on [facility] 10/10/21 at 1550, Until Discontinu ed, Routine, Insomnia diphenhydrA 0 Yes 50mg 50 mg, [facility] 10-10 Intravenou ity of (BENADRYL) 20:50: s, QHSPRN, [place] injection 29 Starting Medica l 50 mg on [facility] 10/10/21 at 1550, Until Discontinu ed, Routine, Insomnia ibuprofen 0 Yes ibuprofen Uni vers 800 mg 10-10 800 mg ity of tablet 17:07: tablet [place] 42 TAKE 1 Medical TABLET BY Branch MOUTH TWICE A DAY NEEDED HYDROcodone 2021-0 Yes hydrocodon Univers -acetaminop 10-10 e 10 ity of hen 10-325 17:07: mg-acetami [place] mg tablet 42 nophen 325 Medi frank mg tablet Branch TAKE 1 TABLET BY MOUTH FOUR TIMES A DAY NEEDED FOR 30 DAYS gabapentin 2021-0 Yes gabapentin U nivers 100 mg 10-10 100 mg ity of capsule 17:07: capsule [place] 42 TAKE 1 Medical CAPSULE BY Branch MOUTH EVERY DAY AT BEDTIME FOR 30 DAYS acetaminoph Yes acetaminop Univers en-codeine 10-10 hen 300 ity of 300-30 mg 17:07: mg-codeine [place] tablet 42 30 mg Medical tablet Branch TAKE 1 TABLET BY MOUTH 2-3 TIMES EVERY DAY NEEDED FOR PAIN. acetaminoph 2021- No 650mg 650 mg, U nivers en 10-10 Oral, Q6H, ity of (TYLENOL) 17:00: 13:12 First dose [place] tablet 650 00 :12 (after Medical mg last Branch modificati on) on [place] 10/10/21 at 1200, Until Discontinu ed, Routine HYDROmorpho 2021- No .2mg 0.2 mg, Un brayden ne 10-10 Slow IV ity of (DILAUDID) 15:55: 13:12 Push, [place] injection 26 :51 Q6HPRN, 5 Medic al 0.2 mg doses, Branch Starting on [place] 10/10/21 at 1055, Until 10/11/21 at 0812, Routine, Pain (scale 7-10)
U se approved by (Faculty): [facility] oxyCODONE 2021- No 5mg 5 mg, Univer s immediate 10-10 Oral, ity of release 15:54: 13:12 Q6HPRN, [place] tablet 5 mg 15 :12 Starting Medi frank on [place] Branch 10/10/21 at 1054, Until 10/11/21 at 0812, Routine, Pain (scale 4-6)
Fa culty member approving Restricted medication : NGOC QUINTEROS ALPRAZolam 2021- No .25mg 0.25 mg, U nivers (XANAX) 10-10 Oral, ity of tablet 0.25 01:00: 20:50 QHSPRN, [place] mg 00 :59 Starting Medical on [facility] Branch 10/09/21 at 2000, Until [place] 10/10/21 at 1550, SUSI, Insomnia magnesium 2021- No 2g 2 g, IV Univ ers sulfate in 10-09 Piggyback, it y of water 2 22:15: 00:43 Administer [place] gram/50 mL 00 :00 over 60 Medica l (4 %) Minutes, Branch infusion 2 ONCE, 1 g dose, On 10/09/21 at 1715, SUSI D5W-LR IV Yes 1000mL at 20 Unive rs infusion 6-25 mL/hr, IV ity of 1,000 mL 21:15: Infusion, [place] 00 CONTINUOUS Medical , Starting Branch on 10/09/21 at 1615, Until Discontinu ed, Routine D5W-LR IV Yes 1000mL at 20 Unive rs infusion 6-25 mL/hr, IV ity of 1,000 mL 21:15: [place]fusion, [place] 00 CONTINUOUS Medical , Starting Branch on 10/09/21 at 1615, Until Discontinu ed, Routine HYDROmorpho 2021- No IV Unive rs ne 10 mg/50 10-09 Infusion, it y of mL 0.9% 16:45: 15:55 50 mL, [place] NaCL 00 :40 CONTINUOUS Medical (DILAUDID) , Starting Bra alh OBSTETRICS NURSE on 10/09/21 at 1145, Until 10/10/21 at 1055 acetaminoph 2021- No 650mg 650 mg, U nivers en 10-09 Oral, ity of (TYLENOL) 15:39: 15:55 Q6HPRN, [place] tablet 650 11 :40 Starting Medic al mg on Sat Branch 10/09/21 at 1039, Until 10/10/21 at 1055, Routine, Alternate with [place] for pain scale 4-6 HYDROmorphO 2021- No Slow IV Un brayden ne 10-09 Push, ity of (DILAUDID)2 15:33: 15:55 Routine [place] mg/mL Load 42 :40 [facility] Rescue Branch dose polyethylen Yes 17g 17 g, Unive rs e glycol 10-09 Oral, ity of 3350 powder 14:00: DAILY, [place] 17 g 00 First dose Medical on Sat Branch 10/09/21 at 0900, Until Discontinu ed, Routine sennosides- Yes 1{tbl} 1 tablet, Univers docusate 10-09 Oral, ity of sodium 14:00: DAILY, [place] (SENOKOT-S) 00 First dose Me dical 8.6-50 mg on Sat Branch per tablet 10/09/21 at 1 tablet 0900, Until Discontinu ed, Routine polyethylen Yes 17g 17 g, Unive rs e glycol 10-09 Oral, ity of 3350 powder 14:00: DAILY, [place] 17 g 00 First dose Medical on Sat Branch 10/09/21 at 0900, Until Discontinu ed, Routine polyethylen Yes 17g 17 g, Unive rs e glycol 10-09 Oral, ity of 3350 powder 14:00: DAILY, [place] 17 g 00 First dose Medical on Sat Branch 10/09/21 at 0900, Until Discontinu ed, Routine sennosides- 2021- No 1{tbl} 1 tablet, Univers docusate 10-09 Oral, ity of sodium 14:00: 12:21 DAILY, [place] (SENOKOT-S) 00 :42 First dose Me dical 8.6-50 mg on Sat Branch per tablet 10/09/21 at 1 tablet 0900, Until Discontinu ed, Routine HYDROcodone 2021- No 1{tbl} 1 tablet, Univers -acetaminop 10-09 Oral, ity of hen (NORCO) 13:39: 15:55 Q6HPRN, [place] 10-325 mg 28 :40 Starting Medica l tablet [address] [facility] Branch tablet 10/09/21 at 0839, Until 10/10/21 at 1055, Routine, Pain (scale 7-10) ferrous 2021- No 300mg 300 mg, Unive rs sulfate 300 10-09 Oral, TID, i ty of mg (60 mg 13:00: 12:20 First dose [place] iron)/5 mL 00 :[address] [facility] Medical solution 10/09/21 at [facility] h 300 mg 0800, Until Discontinu ed, Routine D5W-LR IV 2021- No 1000mL at 75 Univ ers infusion 10-09-25 mL/hr, IV ity o f 1,000 mL 10:45: 21:03 Infusion, Eladio as 00 :24 CONTINUOUS Medical , Starting Branch on 10/09/21 at 0545, Until 10/09/21 at 1603, Routine diphenhydrA 2021- No 25mg 25 mg, Uni vers MINE 10-09 Intravenou ity of (BENADRYL) 10:15: 10:21 s, ONCE, 1 [place] injection 00 :00 dose, On Medica l 25 mg Sat Branch 10/09/21 at 0530, Routine diphenhydrA 2021- No 25mg 25 mg, Uni vers MINE 10-09 Intravenou ity of (BENADRYL) 01:45: 01:39 s, ONCE, 1 [place] injection 00 :00 dose, On Medica l 25 mg Fri Branch 10/08/21 at 2045, Routine labetaloL Yes 20mg 20 mg, Univer s (NORMODYNE) 10-08 Slow IV ity o f injection 20:58: Push, [place] 20 mg 41 Q20MIN Medical PRN, 2 Branch doses, Starting on Mon10/08/21 at 1558, Until Discontinu ed, Routine, For systolic over 140 per cuff. labetaloL 2021- No 20mg 20 mg, Unive rs (NORMODYNE) 10-08 Slow IV ity of injection 20:58: 13:41 Push, [place] 20 mg 41 :55 Q20MIN Medical PRN, 2 Branch doses, Starting on 10/08/21 at 1558, Until 10/09/21 at 0841, Routine, For systolic over 140 per cuff. FENTanyl Yes 1000ug IV Univers OBSTETRICS NURSE 1,000 10-08 Infusion, ity o f mcg in NaCl 18:45: CONTINUOUS [place] 0.9%(NS) 00 , Starting Medic al 100 mL RTU on Fri Branch 10/08/21 at 1345, Until Discontinu ed, SUSI FENTanyl 2021-0 2021- No 1000ug IV Univer s OBSTETRICS NURSE 1,000 10-08 Infusion, ity of mcg in NaCl 18:45: 15:36 CONTINUOUS [place] 0.9%(NS) 00 :35 , Starting Medic al 100 mL RTU on Fri Branch 10/08/21 at 1345, Until 10/09/21 at 1036, SUSI magnesium 2021-0 2021- No 2g 2 g, IV Univ ers sulfate in 10-08 Piggyback, it y of water 2 15:00: 16:49 Administer [place] as gram/50 mL 00 :00 over 60 Medica l (4 %) Minutes, Branch infusion 2 ONCE, 1 g dose, On Mon10/08/21 at 1000, Routine methocarbam 2022-0 Yes 500mg 500 mg, Un brayden oL 10-08 Oral, ity of (ROBAXIN) 14:03: QIDPRN, [place] tablet 500 00 Starting Medic al mg on Mon Branch 10/08/21 at 0903, Until Discontinu ed, SUSI, Muscle Spasms methocarbam 2-0 Yes 500mg 500 mg, Un brayden oL 10-08 Oral, ity of (ROBAXIN) 14:03: QIDPRN, [place] tablet 500 00 Starting Medic al mg on Mon Branch 10/08/21 at 0903, Until Discontinu ed, SUSI, Muscle Spasms methocarbam 2-0 Yes 500mg 500 mg, Un brayden oL 10-08 Oral, ity of (ROBAXIN) 14:03: QIDPRN, [place] tablet 500 00 Starting Medic al mg on Mon Branch 10/08/21 at 0903, Until Discontinu ed, SUSI, Muscle Spasms FENTanyl 2021-0 2021- No 1000ug IV Univer s OBSTETRICS NURSE 1,000 10-08 Infusion, ity of mcg in NaCl 10:45: 18:04 CONTINUOUS [place] 0.9%(NS) 00 :44 , Starting Medic al 100 mL RTU on Mon Branch 10/08/21 at 0545, Until Mon10/08/21 at 1304, SUSI ondansetron 2-0 Yes 4mg 4 mg, Slow Univers (ZOFRAN 10-08 IV Push, ity of (PF)) 09:47: Q6HPRN, [place] injection 4 52 Nausea and Me dical mg Vomiting Branch (N/V), Starting on Mon10/08/21 at 0447
Do ses of ondansetro n 16 mg and above need to be administer ed via IV piggyback. For Dose >=24mg ECG monitoring is advisable.
ondansetron 2-0 Yes 4mg 4 mg, Slow Univers (ZOFRAN 6-24 IV Push, ity of (PF)) 09:47: Q6HPRN, [place] injection 4 52 Nausea and Me dical mg Vomiting Branch (N/V), Starting on Mon10/08/21 at 0447
Do ses of ondansetro n 16 mg and above need to be administer ed via IV piggyback. For Dose >=24mg ECG monitoring is advisable.
ondansetron 2022-0 Yes 4mg 4 mg, Slow Univers (ZOFRAN 6-24 IV Push, ity of (PF)) 09:47: Q6HPRN, [place] injection 4 52 Nausea and Me dical mg Vomiting Branch (N/V), Starting on Mon10/08/21 at 0447
Do ses of ondansetro n 16 mg and above need to be administer ed via IV piggyback. For Dose >=24mg ECG monitoring is advisable.
proMETHazin 2022-0 Yes 25mg 25 mg, IV U nivers e 6-24 Piggyback, ity of (PHENERGAN) 09:38: at 200 [place] 25 mg in NS 42 mL/hr Medical 50 mL IV Administer Branc h piggyback over 15 (CNR) Minutes, Q4HPRN, Starting on Mon10/08/21 at 0438, Until Discontinu ed, Routine, Nausea and Vomiting (N/V) proMETHazin 2022-0 Yes 25mg 25 mg, IV U nivers e 6-24 Piggyback, ity of (PHENERGAN) 09:38: at 200 [place] 25 mg in NS 42 mL/hr Medical 50 mL IV Administer Branc h piggyback over 15 (CNR) Minutes, Q4HPRN, Starting on Mon10/08/21 at 0438, Until Discontinu ed, Routine, Nausea and Vomiting (N/V) proMETHazin 2022-0 Yes 25mg 25 mg, IV U nivers e 6-24 Piggyback, ity of (PHENERGAN) 09:38: at 200 [place] 25 mg in NS 42 mL/hr Medical 50 mL IV Administer Branc h piggyback over 15 (CNR) Minutes, Q4HPRN, Starting on Mon10/08/21 at 0438, Until Discontinu ed, Routine, Nausea and Vomiting (N/V) naloxone 2021-0 Yes .1mg 0.1 mg, Univer s (NARCAN) 10-08 Slow IV ity of injection 09:38: Push, [place] 0.1 mg 00 SEE-INSTRU Medical CTIONS, Branch Starting on Mon10/08/21 at 0438, Until Discontinu ed, Routine FENTanyl 2021-0 Yes Slow IV Univer s (SUBLIMAZE) 10-08 Push, ity of 50 mcg/mL 09:38: Routine [place] Load & 00 Medical Rescue dose Branch naloxone 2021-0 Yes .1mg 0.1 mg, Univer s (NARCAN) 10-08 Slow IV ity of injection 09:38: Push, [place] 0.1 mg 00 SEE-INSTRU Medical CTIONS, Branch Starting on Mon10/08/21 at 0438, Until Discontinu ed, Routine naloxone 2021-0 Yes .1mg 0.1 mg, Univer s (NARCAN) 10-08 Slow IV ity of injection 09:38: Push, [place] 0.1 mg 00 SEE-INSTRU Medical CTIONS, Branch Starting on Mon10/08/21 at 0438, Until Discontinu ed, Routine FENTanyl 2021-0 2021- No Slow IV Unive rs (SUBLIMAZE) 10-08 Push, ity of 50 mcg/mL 09:38: 15:36 Routine [place] Load & 00 :20 Medical Rescue dose Branch bupivacaine 2021-0 2021- No PRN, Unive rs liposome 10-08 Starting ity of (PF) 08:49: 09:41 on Mon (EXPAREL 00 :23 10/08/21 at Medic al (PF)) 1.3 % 0349, Branch (13.3 Until Fri mg/mL) 10/08/21 at injection 0441, Routine, Intra-op sodium 2021-0 Yes PRN, Univers chloride 10-08 Starting ity of 0.9 % 07:00: on Mon [place] irrigation 10/08/21 at Med ical solution 0200, Branch Until Discontinu ed, Intra-op sodium 2021-0 Yes PRN, Univers chloride 10-08 Starting ity of 0.9 % 07:00: on Mon [place] irrigation 00 10/08/21 at Med ical solution 0200, Branch Until Discontinu ed, Intra-op sodium Yes PRN, Univers chloride 10-08 Starting ity of 0.9 % 07:00: on Mon [place] irrigation 10/08/21 at Med ical solution 0200, Branch Until Discontinu ed, Intra-op lactated 2021- No 500mL at 999 Unive rs ringers IV 10-0824 mL/hr, 500 it y of infusion 06:45: 05:14 mL, [place] 500 mL 00 :00 Intravenou Medical s, ONCE, 1 Branch dose, On Mon10/08/21 at 0145, Routine phenylephri 2021- No .5ug/kg 0.5-2 U nivers ne 10 mg in 10-08 /min mcg/kg/min i ty of NaCl 0.9% 06:43: 09:45 ?75.4 kg [place]adio as (NS) 250 mL 41 :12 (56.55-226 Me dical infusion .2 mL/hr), Branc h RTU IV Infusion, TITRATE, MAP Goal > or = 65 mmHg, Starting on Mon10/08/21 at 0143, For 24 hours
I nitiate infusion at 0.5 mcg/kg/min . &nb sp;Increas e by 0.1 mcg/kg/min every 30 seconds to 5 minutes as needed to reach and maintain goal blood pressure.& nbsp;&nbsp ;Maximum dose = 2 mcg/kg/min . &nb sp;If goal not maintained at maximum allowed dose, contact prescriber . &nb sp;Adminis ter only one peripheral intravenou s vasopresso r at a time.
diphenhydrA 2021- No 25mg 25 mg, Uni vers MINE 10-08 Slow IV ity of (BENADRYL) 05:30: 04:31 Push, [place] injection 00 :00 ONCE, 1 Medical 25 mg dose, On Branch Mon10/08/21 at 0030, Routine ibuprofen 2021-0 Yes ibuprofen Uni vers 800 mg 10-08 800 mg ity of tablet 04:41: tablet TAKE 1 Medical TABLET BY Branch MOUTH TWICE A DAY NEEDED HYDROcodone Yes hydrocodon Univers -acetaminop -24 e 10 ity of hen 10-325 04:41: mg-acetami [place] mg tablet 24 nophen 325 Medi frank mg tablet Branch TAKE 1 TABLET BY MOUTH FOUR TIMES A DAY NEEDED FOR 30 DAYS gabapentin 0 Yes gabapentin U nivers 100 mg 24 100 mg ity of capsule 04:41: capsule [place] 24 TAKE 1 Medical CAPSULE BY Branch MOUTH EVERY DAY AT BEDTIME FOR 30 DAYS acetaminoph Yes acetaminop Univers en-codeine 10-08 hen 300 ity of 300-30 mg 04:41: mg-codeine [place] tablet 24 30 mg Medical tablet Branch TAKE 1 TABLET BY MOUTH 2-3 TIMES EVERY DAY NEEDED FOR PAIN. acetaminoph 2021- No 1000mg 1,000 mg, Univers en ADULT 10-08 06-24 IV ity of (OFIRMEV) 03:00: 20:15 Infusion, [place] injection 00 :00 at 400 Medical 1,000 mg mL/hr Branch Administer over 15 Minutes, Q8H, 3 doses, First dose (after last modificati on) on Jen[place] 10/07/21 at 2200, Last dose on Mon10/08/21 at 1400, Routine
Indicatio n: Perioperat zahida Patient gabapentin 0 Yes 300mg 300 mg, Uni vers (NEURONTIN) 6-24 Oral, TID, it y of capsule 300 01:00: First dose [place] mg 00 on [facility] 10/07/21 at [place] 1999, Until Discontinu ed, Routine gabapentin 2021-0 Yes 300mg 300 mg, Uni vers (NEURONTIN) 6-24 Oral, TID, it y of capsule 300 01:00: First dose [place] mg 00 on [facility] 10/07/21 at [place] 1999, Until Discontinu ed, Routine gabapentin 2-0 Yes 300mg 300 mg, Uni vers (NEURONTIN) 6-24 Oral, TID, it y of capsule 300 01:00: First dose [place] mg 00 on [facility] 10/07/21 at [place] 1999, Until Discontinu ed, Routine ibuprofen 2021-0 Yes ibuprofen Uni vers 800 mg 24 800 mg ity of tablet 00:39: tablet [place] 38 TAKE 1 Medical TABLET BY Branch MOUTH TWICE A DAY NEEDED HYDROcodone Yes hydrocodon Univers -acetaminop 24 e 10 ity of hen 10-325 00:39: mg-acetami [place] mg tablet 38 nophen 325 Medi frank mg tablet Branch TAKE 1 TABLET BY MOUTH FOUR TIMES A DAY NEEDED FOR 30 DAYS gabapentin Yes gabapentin U nivers 100 mg 10-08 100 mg ity of capsule 00:39: capsule [place] 38 TAKE 1 Medical CAPSULE BY Branch MOUTH EVERY DAY AT BEDTIME FOR 30 DAYS acetaminoph Yes acetaminop Univers en-codeine 10-08 hen 300 ity of 300-30 mg 00:39: mg-codeine [place] tablet 38 30 mg Medical tablet Branch TAKE 1 TABLET BY MOUTH 2-3 TIMES EVERY DAY NEEDED FOR PAIN. ketorolac 2021- No 30mg 30 mg, Unive rs (TORADOL) 10-07 Slow IV ity of injection 23:00: 09:45 Push, Q6H, [place] 30 mg 00 :12 4 doses, Medical First dose Branch on Mon10/07/21 at 1800, Last dose on Mon10/08/21 at 1200, Routine oxyCODONE 2021- No 10mg 10 mg, Unive rs immediate 10-07 Oral, ity of release 21:41: 09:45 Q6HPRN, [place] tablet 10 22 :12 Starting Medica l mg on [place] Branch 10/07/21 at 1641, Until 10/08/21 at 0445, Routine, Pain (scale 7-10)
F aculty member approving Restricted medication : FLORENCIO LR D5W-LR IV Yes 1000mL at 125 Univ ers infusion 6-23 mL/hr, IV ity of 1,000 mL 21:15: Infusion, [place] 00 CONTINUOUS Medical , Starting Branch on Jeny 10/07/21 at 1615, Until Discontinu ed, Routine D5W-LR IV 2021- No 1000mL at 125 Uni vers infusion 10-07 06-25 mL/hr, IV ity o f 1,000 mL 21:15: 10:30 Infusion, Eladio as 00 :05 CONTINUOUS Medical , Starting Branch on Jeny 10/07/21 at 1615, Until 10/09/21 at 0530, Routine HYDROcodone 2021- No 1{tbl} 1 tablet, Univers -acetaminop 10-07 Oral, ity of hen (NORCO 21:15: 21:55 ONCE, 1 [place] as 5) 5-325 mg 00 :00 dose, On Medi frank tablet 1 [place] Branch tablet 10/07/21 at 1615, Routine, PACU morpHINE (4 2021- No 4mg 4 mg, Slow Univers mg/mL) 10-07 IV Push, ity of injection 4 21:12: 09:45 Q4HPRN, [place] mg 37 :12 Starting Medical on [place] Branch 10/07/21 at 1612, Until Mon10/08/21 at 0445, Routine, Pain (scale 7-10) ondansetron 2021- No 4mg 4 mg, Slow Univers (ZOFRAN 10-07 IV Push, ity of (PF)) 21:11: 09:45 Q4HPRN, [place] injection 4 23 :12 Starting Medi frank mg on [place] Branch 10/07/21 at 1611, Until Mon10/08/21 at 0445, Routine, Nausea and Vomiting (N/V) HYDROmorphO No .2mg 0.2 mg, Un brayden ne 10-07 Slow IV ity of (DILAUDID) 21:04: 22:20 Push, [place] injection 22 :58 Q5MIN PRN, Medi frank 0.2 mg 10 doses, Branch Starting on Jeny 10/07/21 at 1604, Until Jen[place] 10/07/21 at 1720, Routine, Pain (scale 7-10), PACU
Us e approved by (Faculty): PACU USE -ANESTHESI A SERVICE-HY DROMORPHON E INJECTIONS FENTanyl PF 2021- No 25ug 25 mcg, Un brayden (SUBLIMAZE 10-07 Slow IV ity o f (PF)) 21:04: 22:20 Push, [place] injection 21 :58 Q5MIN PRN, Medi farnk 25 mcg 4 doses, Branch Starting on Jeny 10/07/21 at 1604, Until 10/07/22 at 1720, Routine, Pain (scale 4-6), PACU sugammadex 2021- No IV Push, Un brayden (BRIDION) 10-07 ONCE INTRA ity of injection 20:51: 23:25 PROCEDURE, [place] 00 :15 Starting Medical on Jen[place] Branch 10/07/21 at 1551, Until [place] 10/07/21 at 1825, Routine, Intra-op sodium 2021- No PRN, Univers chloride 10-07 Starting ity of 0.9 % 20:50: 22:20 on Jen[place] irrigation 00 :12 10/07/21 at [facility] ical solution 1550, Branch Until Jen[place] 10/07/21 at 1720, Intra-op lidocaine-e 2021- No PRN, Unive rs pinephrine 10-07 Starting ity of (XYLOCAINE 20:49: 22:20 on [facility] s WITH 00 :12 10/07/21 at [facility] EPINEPHRINE 1549, Branch ) 1 Until [place] %-1:100,000 10/07/21 at injection 1720, Routine, Intra-op bupivacaine 2021- No PRN, Unive rs (preserv 10-07 Starting ity of free) 20:48: 22:20 on [facility] (SENSORCAIN 00 :12 10/07/21 at [place] dical E MPF) 0.25 1548, Branch % (2.5 Until Jen[place] mg/mL) 10/07/21 at injection 1720, Routine, Intra-op phenylephri 2021- No Slow IV Un brayden ne 10-07 Push, ONCE ity of (VAZCULEP) 20:36: 21:01 INTRA [place] injection 00 :33 PROCEDURE, Medi frank Starting Branch on Jeny 10/07/21 at 1536, Until [place] 10/07/21 at 1601, Routine, Intra-op FENTanyl PF 2021- No Epidural, Univers (SUBLIMAZE 10-07 ONCE INTRA it y of (PF)) 20:36: 21:01 PROCEDURE, [place] injection 00 :33 Starting Medica l on Jeny Branch 10/07/21 at 1536, Until [place] 10/07/21 at 1601, Routine, Intra-op ondansetron 2021- No Slow IV Un brayden (ZOFRAN 10-07 Push, ONCE ity o f (PF)) 20:27: 21:01 INTRA [place] injection 00 : PROCEDURE, Medi frank Starting Branch on Jeny 10/07/21 at 1527, Until Jen[place] 10/07/21 at 1601, Routine, Intra-op acetaminoph 2021- No IV Unive rs en ADULT 10-07 Infusion, ity o f (OFIRMEV) 19:43: 21:01 Administer [place] injection 00 : over 15 Medical Minutes, Branch ONCE INTRA PROCEDURE, Starting on Jeny 10/07/21 at 1443, Until [place] 10/07/21 at 1601, Routine, Intra-op calcium 2021- No Intravenou Uni vers chloride 10-07 s, ONCE ity of 100 mg/mL 18:25: 21:01 INTRA [place] (10 %) : PROCEDURE, Medical syringe Starting Branch on Jeny 10/07/21 at 1325, Until [place] 10/07/21 at 1601, Routine, Intra-op aminocaproi 2021- No IV Unive rs c acid 10-07 Infusion, ity of (AMICAR) 5 17:28: 21:01 CONTINUOUS [place] g in NaCl 00 :33 PRN, Medical 0.9% (NS) Starting Branch 250 mL on Jeny infusion 10/07/21 at 1228, Intra-op desmopressi 2021- No Intravenou Univers n (DDAVP) 10-07 s, ONCE ity of injection 17:27: 21:01 INTRA [place] : PROCEDURE, Medical Starting Branch on Jeny 10/07/21 at 1227, Until Jen[place] 10/07/21 at 1601, Routine, Intra-op ePHEDrine 2021- No Slow IV Univ ers 25 mg/5 mL 10-07 Push, ONCE it y of (5 mg/mL) 17:22: 21:01 INTRA [place] syringe 00 : PROCEDURE, Medica l Starting Branch on Jeny 10/07/21 at 1222, Until [place] 10/07/21 at 1601, Routine, Intra-op dexamethaso 2021- No IV Push, U nivers ne 10-07 ONCE INTRA ity of (DECADRON 17:20: 21:01 PROCEDURE, [place] PHOSPHATE) 00 :33 Starting Medic al injection on Jen[place] Branch 10/07/21 at 1220, Until [place] 10/07/21 at 1601, Routine, Intra-op Transfuse 2021- No Routine Univ ers Packed RBC 10-07 ity of (in units)~ 17:14: 21:01 [place] 13 :33 Medical Branch ceFAZolin 2021- No Slow IV Univ ers (ANCEF) 10-07 Push, ONCE ity o f injection 17:01: 21:01 INTRA [place] 00 :33 PROCEDURE, Medical Starting Branch on Jeny 10/07/21 at 1201, Until [place] 10/07/21 at 1601, SUSI, Intra-op rocuronium 2021- No IV Push, Un brayden (ZEMURON) 10-07 ONCE INTRA ity of injection 16:47: 21:01 PROCEDURE, [place] 00 :33 Starting Medical on [place] Branch 10/07/21 at 1147, Until [place] 10/07/21 at 1601, Routine, Intra-op propofoL IV 2021- No Slow IV Un brayden infusion 10-07 Push, ONCE ity of 16:45: 21:01 INTRA [place] 00 :33 PROCEDURE, Medical Starting Branch on Jeny 10/07/21 at 1145, Until [place] 10/07/21 at 1601, Routine, Intra-op HYDROmorphO 2021- No Slow IV Un brayden ne 10-07 Push, ONCE ity of (DILAUDID) 16:45: 21:01 INTRA [place] injection 00 :33 PROCEDURE, Medi frank Starting Branch on Jeny 10/07/21 at 1145, Until [place] 10/07/21 at 1601, Routine, Intra-op midazolam 0 2021- No IV Push, Uni vers (VERSED) 10-07 ONCE INTRA ity of injection 16:37: 21:01 PROCEDURE, [place] 00 :33 Starting Medical on [place] Branch 10/07/21 at 1137, Until [place] 10/07/21 at 1601, Routine, Intra-op lactated No IV Univers ringers IV 10-07 Infusion, ity of infusion 16:36: 21:01 CONTINUOUS [place] 00 :33 PRN, Medical Starting Branch on Jen[place] 10/07/21 at 1136, Until [place] 10/07/21 at 1601, Routine, Intra-op metroNIDAZO 2021- No 500mg 500 mg, IV Univers LE in NaCl 10-07 Piggyback, it y of (iso-os) 15:55: 17:10 [facility] [place] (FLAGYL 50 :00 HOLDING Medical I.V.) RTU ONCE, 1 Branch IV infusion dose, 500 mg Starting on Jeny 10/07/21 at 1055, Until [place] 10/07/21 at 1210, Administer over 75 Minutes, 100 mL
Reas on for Anti-Infec tive: Surgical Prophylaxi s
[place] rgical Prophylaxi s: CONCRETE FLOATER
Duration of therapy: within 24 hours of surgery diphenhydrA No 50mg 50 mg, Uni vers MINE 10-07 Oral, ity of (BENADRYL) 05:00: 04:23 ONCE, 1 [place] as tablet 50 00 :00 dose, On Medica l mg [place] Branch 10/07/21 at 0000, Routine HYDROcodone No 1{tbl} 1 tablet, Univers -acetaminop 10-07 Oral, ity of hen (NORCO) 05:00: 04:23 ONCE, 1 [place] 10-325 mg 00 :00 dose, On Medica l tablet 1 [place] Branch tablet 10/07/21 at 0000, Routine lactated 2021- No 1000mL at 42 Unive rs ringers IV 10-06 mL/hr, ity of infusion 19:45: 03:50 1,000 mL, [place]io as 1,000 mL 00 :00 IV Medical Infusion, Branch ONCE, 1 dose, On Mon10/06/21 at 1445, Routine, DSU Pre-op carisoprodo 2022-0 Yes 350mg Take 350 U nivers L 350 mg 5-06 mg by ity of tablet 00:00: mouth [place] 00 daily. Medical Branch carisoprodo 2022-0 Yes 350mg Take 350 U nivers L 350 mg 5-06 mg by ity of tablet 00:00: mouth [place] 00 daily. Medical Branch carisoprodo 2022-0 Yes 350mg Take 350 U nivers L 350 mg 5-06 mg by ity of tablet 00:00: mouth [place] 00 daily. Medical Branch carisoprodo 2022-0 Yes 350mg Take 350 U nivers L 350 mg 5-06 mg by ity of tablet 00:00: mouth [place] 00 daily. Medical Branch carisoprodo 2022-0 Yes 350mg Take 350 U nivers L 350 mg 5-06 mg by ity of tablet 00:00: mouth [place] 00 daily. Medical Branch carisoprodo 2022-0 Yes 350mg Take 350 U nivers L 350 mg 5-06 mg by ity of tablet 00:00: mouth [place] 00 daily. Medical Branch carisoprodo 2022-0 Yes 350mg Take 350 U nivers L 350 mg 5-06 mg by ity of tablet 00:00: mouth [place] 00 daily. Medical Branch carisoprodo 2022-0 Yes 350mg Take 350 U nivers L 350 mg 5-06 mg by ity of tablet 00:00: mouth [place] 00 daily. Medical Branch carisoprodo 2022-0 Yes 350mg Take 350 U nivers L 350 mg 5-06 mg by ity of tablet 00:00: mouth [place] 00 daily. [facility] Branch Immunizations Ordered Filled Immunization Date Status Comments [facility] e Immunization Name Name TDAP (ADACEL) 2018-10-15 Completed University of VACCINE 00:00:00 [facility] TDAP (ADACEL) 2018-10-15 Completed University of VACCINE 00:00:00 [facility] TDAP (ADACEL) 2018-10-15 Completed University of VACCINE 00:00:00 [facility] TDAP (ADACEL) 2018-10-15 Completed University of VACCINE 00:00:00 [facility] TDAP (ADACEL) 2018-10-15 Completed University of VACCINE 00:00:00 [facility] TDAP (ADACEL) 2018-10-15 Completed University of VACCINE 00:00:00 [facility] Branch TDAP (ADACEL) 2018-10-15 Completed University of VACCINE 00:00:00 [facility] Branch TDAP (ADACEL) 2018-10-15 Completed University of VACCINE 00:00:00 [facility] Branch TDAP (ADACEL) 2018-10-15 Completed University of VACCINE 00:00:00 [facility] Vital Signs Vital Name Observation Time Observation Value Comments Source Systolic blood 2021-10-12 16:39:00 121 mm[Hg] Univer sity of pressure [facility] Diastolic blood 2021-10-12 16:39:00 67 mm[Hg] Unive rsity of pressure [facility] Heart rate 2021-10-12 16:39:00 59 /min Universi ty of [facility] Body temperature 2021-10-12 16:39:00 37.28 Radha Univ ersity of [facility] Respiratory rate 2021-10-12 16:39:00 18 /min Univ ersity of [facility] Oxygen saturation in 2021-10-12 16:39:00 97 /min University of Arterial blood by [place] [employer] Pulse oximetry Branch Body height 2021-10-10 13:00:00 162.6 cm Universi ty of [place] [facility] [place] Body weight 2021-10-10 13:00:00 83.7 kg Universi ty of [facility] BMI 2021-10-10 13:00:00 31.66 kg/m2 Universi ty [facility] Systolic blood 2021-10-08 06:29:00 100 mm[Hg] Univer sity of pressure [facility] Branch Diastolic blood 2021-10-08 06:29:00 60 mm[Hg] Unive rsity of pressure [facility] Heart rate 2021-10-08 06:29:00 73 /min Universi ty [facility] [place] [facility] Body temperature 2021-10-08 06:29:00 37 Radha Univ ersity of [place] [facility] Respiratory rate 2021-10-08 06:29:00 22 /min Univ ersity of [place] [facility] Oxygen saturation in 2021-10-08 06:29:00 100 /min University of Arterial blood by [employer] frank Pulse oximetry Branch Body weight 2021-10-08 05:40:00 88 kg Universi ty of [facility] BMI 2021-10-08 05:40:00 31.66 kg/m2 [facility] Body height 2021-10-07 05:00:00 162.6 cm [facility] Systolic blood 2021-10-07 21:15:00 118 mm[Hg] Univer sity of pressure [facility] Diastolic blood 2021-10-07 21:15:00 64 mm[Hg] Unive rsity of [facility] Heart rate 2021-10-07 21:15:00 76 /min [facility] Respiratory rate 2021-10-07 21:15:00 15 /min [facility] Oxygen saturation in 2021-10-07 21:15:00 100 /min [facility] Arterial blood by [facility] Pulse oximetry [place] Body temperature 2021-10-07 21:00:00 36.94 Radha [facility] height 2021-10-07 05:00:00 162.6 cm [facility] Body weight 2021-10-06 20:20:00 75.4 kg [facility] BMI 2021-10-06 20:20:00 33.30 kg/m2 [facility] Procedures Procedure Date / Time Performing Clinician Source Performed CBC WITH DIFF 2021-10-12 11:42:00 Alison Zamorano [facility] URINALYSIS 2021-10-11 15:27:00 Alison Zamorano [facility] URINALYSIS 2021-10-11 15:27:00 Alison Zamorano [facility] URINE CULTURE 2021-10-11 15:27:00 Alison Zamorano [facility] CBC WITHOUT DIFF 2021-10-10 22:32:00 Yunier [facility] CBC WITHOUT DIFF 2021-10-10 22:32:00 Nicholas Faye [facility] PHOSPHORUS 2021-10-10 11:08:00 Nicholas Faye [facility] MAGNESIUM 2021-10-10 11:08:00 Yunier [facility] BASIC METABOLIC PANEL (NA, 2021-10-10 11:08:00 Nicholas Faye [facility] K, CL, CO2, GLUCOSE, BUN, Medica l Branch CREATININE, CA) CBC WITHOUT DIFF 2021-10-10 11:08:00 Yunier [facility] PHOSPHORUS 2021-10-10 11:08:00 Yunier, [facility] MAGNESIUM 2021-10-10 11:08:00 Yunier, [facility] BASIC METABOLIC PANEL (NA, 2021-10-10 11:08:00 Yunier Nicholas [facility] K, CL, CO2, GLUCOSE, BUN, Medica l Branch CREATININE, CA) CBC WITHOUT DIFF 2021-10-10 11:08:00 Yunier, [facility] CBC WITHOUT DIFF 2021-10-09 23:22:00 Yunier, [facility] CBC WITHOUT DIFF 2021-10-09 23:22:00 Yunier, [facility] CBC WITHOUT DIFF 2021-10-09 16:22:00 Yunier, [facility] CBC WITHOUT DIFF 2021-10-09 16:22:00 Yunier, [facility] TRANSFUSE PACKED RBC 2021-10-09 10:31:00 Monse [facility] TRANSFUSE PACKED RBC 2021-10-09 10:31:00 Monse [facility] PREPARE PACKED RBC 2021-10-09 10:06:26 [facility] PREPARE PACKED RBC 2021-10-09 10:06:26 adwoa [facility] PHOSPHORUS 2021-10-09 08:35:00 Jd Donahue [facility] MAGNESIUM 2021-10-09 08:35:00 [facility] BASIC [facility]ABOLIC PANEL (NA, 2021-10-09 08:35:00 Marcela Khan [facility] K, CL, CO2, GLUCOSE, BUN, Medica l Branch CREATININE, CA) CBC WITHOUT DIFF 2021-10-09 08:35:00 Bill [facility] PHOSPHORUS 2021-10-09 08:35:00 Jd Donahue [facility] MAGNESIUM 2021-10-09 08:35:00 Jd Donahue [facility] BASIC METABOLIC PANEL (NA, 2021-10-09 08:35:00 KhanMarcela [facility] [place] K, CL, CO2, GLUCOSE, BUN, Medica l Branch CREATININE, CA) CBC WITHOUT DIFF 2021-10-09 08:35:00 Bill [facility] CBC WITHOUT DIFF 2021-10-09 01:26:00 Bill [facility] CBC WITHOUT DIFF 2021-10-09 01:26:00 Bill [facility] BASIC METABOLIC PANEL (NA, 2021-10-09 00:09:00 Khan, Marcela [facility] [place] K, CL, CO2, GLUCOSE, BUN, Medica l Branch CREATININE, CA) BASIC METABOLIC PANEL (NA, 2021-10-09 00:09:00 Khan, Marcela [facility] [place] K, CL, CO2, GLUCOSE, BUN, Medica l Branch CREATININE, CA) BASIC METABOLIC PANEL (NA, 2021-10-08 15:10:00 Yunier, Nicholas [facility] [place] K, CL, CO2, GLUCOSE, BUN, Medica l Branch CREATININE, CA) CBC WITHOUT DIFF 2021-10-08 15:10:00 Carol [facility] BASIC METABOLIC PANEL (NA, 2021-10-08 15:10:00 Yunier, Nicholas [facility] [place] K, CL, CO2, GLUCOSE, BUN, Medica l Branch CREATININE, CA) CBC WITHOUT DIFF 2021-10-08 15:10:00 Carol [facility] BASIC METABOLIC PANEL (NA, 2021-10-08 15:10:00 Yuneir, Nicholas [facility] [place] K, CL, CO2, GLUCOSE, BUN, Medica l Branch CREATININE, CA) CBC WITHOUT DIFF 2021-10-08 15:10:00 [facility]EL 20 + LACTIC ACID 2021-10-08 10:24:00 Dalia Carson Un [facility] AC PANEL 20 + LACTIC ACID 2021-10-08 10:24:00 Dalia Carson [facility] AC PANEL 20 + LACTIC ACID 2021-10-08 10:24:00 Dalia Carson [facility] PHOSPHORUS 2021-10-08 10:20:00 [facility] 2021-10-08 10:20:00 Yamileth [facility] HEPATIC FUNCTION PANEL 2021-10-08 10:20:00 Yamileth [facility] ([id number]) (ALB,T.PRO,BILI Medical Branch T,BU/BC,ALT,AST,ALK PHOS) BASIC METABOLIC PANEL (NA, 2021-10-08 10:20:00 Dalia Carson [facility] K, CL, CO2, GLUCOSE, BUN, Medica l Branch CREATININE, CA) CBC WITH DIFF 2021-10-08 10:20:00 Alonso [facility] GLYCOSYLATED HEMOGLOBIN 2021-10-08 10:20:00 [facility] PROTHROMBIN TIME / INR 2021-10-08 10:20:00 Alonso Oxana [facility] ACTIVATED PARTIAL THRMPLAS 2021-10-08 10:20:00 Oxana Gupta [facility] TASHA [facility] FIBRINOGEN 2021-10-08 10:20:00 Alonso Oxana [facility] PHOSPHORUS 2021-10-08 10:20:00 Yamileth [facility] MAGNESIUM 2021-10-08 10:20:00 Yamileth [facility] HEPATIC FUNCTION PANEL 2021-10-08 10:20:00 Yamileth Dalia [facility] ([id number]) (ALB,T.PRO,BILI [facility] T,BU/BC,ALT,AST,ALK PHOS) BASIC METABOLIC PANEL (NA, 2021-10-08 10:20:00 Yamileth Dalia [facility] K, CL, CO2, GLUCOSE, BUN, Medica l Branch CREATININE, CA) CBC WITH DIFF 2021-10-08 10:20:00 Alonso [facility] GLYCOSYLATED HEMOGLOBIN 2021-10-08 10:20:00 Yamileth [facility] (A1C) [facility] PROTHROMBIN TIME / INR 2021-10-08 10:20:00 [facility] ACTIVATED PARTIAL THRMPLAS 2021-10-08 10:20:00 Oxana Gupta [facility] FIBRINOGEN 2021-10-08 10:20:00 Oxana Gupta [facility] PHOSPHORUS 2021-10-08 10:20:00 Yamileth [facility] MAGNESIUM 2021-10-08 10:20:00 [facility] HEPAT[facility]EL 2021-10-08 10:20:00 [id number] (ALB,T.PRO,BILI [facility] Branch T,BU/BC,ALT,AST,ALK PHOS) BASIC METABOLIC PANEL (NA, 2021-10-08 10:20:[address] [facility] K, CL, CO2, GLUCOSE, BUN, Medica l Branch CREATININE, CA) CBC WITH DIFF 2021-10-08 10:20:00 Oxana Gupta [facility] GLYCOSYLATED HEMOGLOBIN 2021-10-08 10:20:00 [facility] ([facility] PROTHROMBIN TIME / INR 2021-10-08 10:20:00 [facility] ACTIVATED PARTIAL THRMPLAS 2021-10-08 10:20:00 Oxana Gupta [facility] FIBRINOGEN 2021-10-08 10:20:00 Oxana Gupta [facility] PREPARE PLASMA 2021-10-08 09:48:16 Florencio Lr [facility] PREPARE PLASMA 2021-10-08 09:48:16 Florencio Lr [facility] PREPARE PLASMA 2021-10-08 09:48:16 Florencio Lr [facility] PREPARE PACKED RBC 2021-10-08 09:47:11 Florencio Lr [facility] PREPARE PACKED RBC 2021-10-08 09:47:11 [facility] 2021-10-08 09:47:11 Florencio Lr [facility] HB ECG ROUTINE & RHYTHM 2021-10-08 09:44:02 Yamileth [facility] HB ECG ROUTINE & RHYTHM 2021-10-08 09:44:02 Yamileth [facility] TRANSFUSE CRYOPRECIPITATE 2021-10-08 08:58:00 [facility] ([place] ) [facility] TRANSFUSE CRYOPRECIPITATE 2021-10-08 08:58:00 [facility] ([place] ) [facility] TRANSFUSE CRYOPRECIPITATE 2021-10-08 08:58:00 [facility] ([place] ) [facility] ABG+COOX+NA+K+GLU+CA2+ 2021-10-08 08:55:00 Be [facility] ABG+COOX+NA+K+GLU+CA2+ 2021-10-08 08:55:00 Be [facility] PROTHROMBIN TIME / INR 2021-10-08 08:50:00 Judi Merino [facility] PROTHROMBIN TIME / INR 2021-10-08 08:50:00 Judi Merino [facility] PROTHROMBIN TIME / INR 2021-10-08 08:50:00 Judi Merino U [facility] TRANSFUSE PLASMA 2021-10-08 08:31:00 Michael Andrews [facility] TRANSFUSE PLASMA 2021-10-08 08:31:00 Michael Andrews [facility] TRANSFUSE PLASMA 2021-10-08 08:31:00 Michael Andrews [facility] TRANSFUSE PACKED RBC 2021-10-08 08:28:00 Michael Andrews [facility] TRANSFUSE PACKED RBC 2021-10-08 08:28:00 Michael Andrews [facility] TRANSFUSE PACKED RBC 2021-10-08 08:28:00 Michael Andrews [facility] ABG+COOX+NA+K+GLU+CA2+ 2021-10-08 08:01:00 Florencio Lr [facility] ABG+COOX+NA+K+GLU+CA2+ 2021-10-08 08:01:00 Florencio Lr [facility] TRANSFUSE PLASMA (IN ML) 2021-10-08 07:55:00 Michael Andrews [facility] TRANSFUSE PLASMA (IN ML) 2021-10-08 07:55:00 Michael Andrews [facility] TRANSFUSE PACKED RBC 2021-10-08 07:50:00 Michael Andrews [facility] TRANSFUSE PACKED RBC 2021-10-08 07:50:00 Michael Andrews [facility] CBC WITHOUT DIFF 2021-10-08 07:46:00 Judi Merino [facility] EXTRA TUBE SST 2021-10-08 07:46:00 Florencio Lr [facility] CBC WITHOUT DIFF 2021-10-08 07:46:00 Judi Merino G [facility] EXTRA TUBE SST 2021-10-08 07:46:00 Florencio Lr [facility] CBC WITHOUT DIFF 2021-10-08 07:46:00 MerinoJudi G [facility] EXTRA TUBE SST 2021-10-08 07:46:00 Florencio Lr [facility] ABG+COOX+NA+K+GLU+CA2+ 2021-10-08 07:43:00 Florencio Lr [facility] ABG+COOX+NA+K+GLU+CA2+ 2021-10-08 07:43:00 Florencio Lr [facility] TRANSFUSE PLASMA (IN ML) 2021-10-08 07:36:00 Michael Andrews [facility] TRANSFUSE PLASMA (IN ML) 2021-10-08 07:36:00 Michael Andrews [facility] FIBRINOGEN 2021-10-08 07:32:00 MerinoJudi [facility] FIBRINOGEN 2021-10-08 07:32:00 Merino Judi [facility] FIBRINOGEN 2021-10-08 07:32:00 Merino, Judi [facility] TRANSFUSE PACKED RBC 2021-10-08 07:30:00 LySunViviana [facility] TRANSFUSE PLASMA (IN ML) 2021-10-08 07:30:00 Michael Andrews [facility] TRANSFUSE PACKED RBC 2021-10-08 07:30:00 LySunViviana [facility] TRANSFUSE PLASMA (IN ML) 2021-10-08 07:30:00 Michael Andrews [facility] PREPARE CRYOPRECIPITATE 2021-10-08 07:24:24 Florencio Lr [facility] PREPARE CRYOPRECIPITATE 2021-10-08 07:24:24 Florencio Lr [facility] PREPARE CRYOPRECIPITATE 2021-10-08 07:24:24 Florencio Lr [facility] TRANSFUSE PACKED RBC 2021-10-08 07:22:00 Michael Andrews [facility] TRANSFUSE PACKED RBC 2021-10-08 07:22:00 Michael Andrews [facility] TRANSFUSE PACKED RBC 2021-10-08 07:19:00 Michael Andrews [facility] TRANSFUSE PACKED RBC 2021-10-08 07:19:00 Michael Andrews [facility] ABG+COOX+NA+K+GLU+CA2+ 2021-10-08 07:13:00 [facility]+COOX+NA+K+GLU+CA2+ 2021-10-08 07:13:00 [facility] TRANSFUSE PLASMA (IN ML) 2021-10-08 07:08:00 Michael Andrews [facility] TRANSFUSE PLASMA (IN ML) 2021-10-08 07:08:00 Michael Andrews [facility] TRANSFUSE PLATELETS 2021-10-08 06:55:00 [facility] 2021-10-08 06:55:00 [facility] PREPARE PLATELETS 2021-10-08 06:44:36 Florencio Lr [facility] PREPARE PLATELETS 2021-10-08 06:44:36 Florencio Lr [facility] PREPARE PLATELETS 2021-10-08 06:44:36 [facility] LAPAROTOMY 2021-10-08 06:24:00 Judi Merino [facility] EVACUATION HEMATOMA PELVIC 2021-10-08 06:24:00 Judi [facility]PLORATORY LAPAROTOMY 2021-10-08 06:24:00 Judi Merino [facility] EVACUATION HEMATOMA PELVIC 2021-10-08 06:24:00 Judi [facility] FIBRINOGEN 2021-10-08 06:17:00 Darryl [facility] FIBRINOGEN 2021-10-08 06:17:00 Michael Andrews [facility] FIBRINOGEN 2021-10-08 06:17:00 [facility] PANEL 21 + LACTIC ACID 2021-10-08 06:14:00 Shazia [facility] AC PANEL 21 + LACTIC ACID 2021-10-08 06:14:00 [facility] PANEL 21 + LACTIC ACID 2021-10-08 06:14:00 Elizabeth Mccray [facility] BASIC METABOLIC PANEL (NA, 2021-10-08 06:12:00 Yadira [facility]ray [facility] K, CL, CO2, GLUCOSE, BUN, Medica l Branch CREATININE, CA) CBC WITH DIFF 2021-10-08 06:12:00 Elizabeth Mccray [facility] PROTHROMBIN TIME / INR 2021-10-08 06:12:00 Elizbaeth [facility] ACT[facility] PARTIAL THRMPLAS 2021-10-08 06:12:00 Yadira Mccray [facility] FIBRINOGEN 2021-10-08 06:12:00 Elizabeth Mccray [facility] BASIC METABOLIC PANEL (NA, 2021-10-08 06:12:00 Yadira [facility]ray [facility] K, CL, CO2, GLUCOSE, BUN, Medica l Branch CREATININE, CA) CBC WITH DIFF 2021-10-08 06:12:00 Elizabeth Mccray [facility] PROTHROMBIN TIME / INR 2021-10-08 06:12:00 Elizabeth Mccray Un [facility] ACTIVATED PARTIAL THRMPLAS 2021-10-08 06:12:00 Yadira Mccray [facility] FIBRINOGEN 2021-10-08 06:12:00 Elizabeth Mccray [facility] BASIC METABOLIC PANEL (NA, 2021-10-08 06:12:00 Yadira [facility] K, CL, CO2, GLUCOSE, BUN, Medica l Branch CREATININE, CA) CBC WITH DIFF 2021-10-08 06:12:00 Elizabeth Mccray [facility] PROTHROMBIN TIME / INR 2021-10-08 06:12:00 Elizabeth [facility] ACTIV[facility] PARTIAL THRMPLAS 2021-10-08 06:12:00 Yadira Mccray [facility] FIBRINOGEN 2021-10-08 06:12:00 Elizabeth Mccray [facility] EXTERNAL PROVIDER RECORDS 2021-10-08 05:01:00 Doctor Unassigned, [facility] Name [facility] EXTERNAL PROVIDER RECORDS 2021-10-08 05:01:00 Doctor Unassigned, [facility] Name [facility] EXTERNAL PROVIDER RECORDS 2021-10-08 05:01:00 Doctor Unassigned, [facility] Name [facility] TRANSFUSE PACKED RBC 2021-10-08 04:45:00 Ly, [facility] TRANSFUSE PACKED RBC 2021-10-08 04:45:00 Ly, [facility] MAGNESIUM 2021-10-08 04:36:00 Ly, [facility] BASIC METABOLIC PANEL (NA, 2021-10-08 04:36:00 Ly, Viviana [facility] [place] K, CL, CO2, GLUCOSE, BUN, Medica l Branch CREATININE, CA) CBC WITH DIFF 2021-10-08 04:36:00 Ly, [facility] MAGNESIUM 2021-10-08 04:36:00 Ly, [facility] BASIC METABOLIC PANEL (NA, 2021-10-08 04:36:00 Ly, Viviana [facility] [place] K, CL, CO2, GLUCOSE, BUN, Medica l Branch CREATININE, CA) CBC WITH DIFF 2021-10-08 04:36:00 Ly, [facility] MAGNESIUM 2021-10-08 04:36:00 Ly, [facility] BASIC METABOLIC PANEL (NA, 2021-10-08 04:36:00 Ly, Viviana [facility] [place] K, CL, CO2, GLUCOSE, BUN, Medica l Branch CREATININE, CA) CBC WITH DIFF 2021-10-08 04:36:00 Ly, [facility] PREPARE PACKED RBC 2021-10-08 04:27:22 Ly, [facility] PREPARE PACKED RBC 2021-10-08 04:27:22 Ly, [facility] PREPARE PACKED RBC 2021-10-08 04:27:22 Ly, Viviana [facility] POCT GLUCOSE (AUTOMATED) 2021-10-08 03:51:00 Florencio Lr [facility] POCT GLUCOSE (AUTOMATED) 2021-10-08 03:51:00 Florencio Lr [facility] POCT GLUCOSE (AUTOMATED) 2021-10-08 03:51:00 Florencio Lr [facility] CBC WITH DIFF 2021-10-07 23:55:00 Hilario [facility] CBC WITH DIFF 2021-10-07 23:55:00 Maospeedwell [facility] CBC WITH DIFF 2021-10-07 23:55:00 [facility] 2021-10-07 21:08:55 Naga [facility] PREPARE PACKED RBC 2021-10-07 21:08:55 Naga [facility] PREPARE PACKED RBC 2021-10-07 21:08:55 Naga [facility] SURGICAL PATHOLOGY EXAM 2021-10-07 20:37:00 [facility] TRANSF[facility]ACKED RBC 2021-10-07 17:19:00 Ronald [facility] TRANSFUSE PACKED RBC 2021-10-07 17:19:00 Ronald [facility] TRANSFUSE PACKED RBC 2021-10-07 17:19:00 Josep Cardenas [facility] INTUBATION 2021-10-07 16:49:00 Josep Cardenas [facility] LAPAROSCOPIC TOTAL 2021-10-07 16:12:00 Florencio Lr [facility] ABDOMINAL HYSTERECTOMY Medical B ranch LAPAROSCOPIC 2021-10-07 16:12:00 Florencio Lr [facility] SALPINGO-OOPHORECTOMY Medical Br anch CYSTOSCOPY 2021-10-07 16:12:00 Florencio Lr [facility] LAPAROSCOPIC TOTAL 2021-10-07 16:12:00 Florencio Lr [facility] ABDOMINAL HYSTERECTOMY Medical B ranch LAPAROSCOPIC 2021-10-07 16:12:00 Florencio Lr [facility] SALPINGO-OOPHORECTOMY Medical Br anch CYSTOSCOPY 2021-10-07 16:12:00 Florencio Lr [facility] COMP. METABOLIC PANEL 2021-10-07 11:41:00 Alison Zamorano [facility] ([id number]) [facility] COMP. METABOLIC PANEL 2021-10-07 11:41:00 Alison Zamorano [facility] ([id number]) [facility] COMP. METABOLIC PANEL 2021-10-07 11:41:00 Alison Zamorano [facility] ([id number]) [facility] CBC WITH DIFF 2021-10-07 00:30:00 Alison Zamorano [facility] PROTHROMBIN TIME / INR 2021-10-07 00:30:00 Alison Zamorano [facility] ACTIVATED PARTIAL THRMPLAS 2021-10-07 00:30:00 [facility] FIB[facility]EN 2021-10-07 00:30:00 Alison Zamorano [facility] CBC WITH DIFF 2021-10-07 00:30:00 Alison Zamorano [facility] PROTHROMBIN TIME / INR 2021-10-07 00:30:00 [facility] ACTIVATED PARTIAL THRMPLAS 2021-10-07 00:30:00 [facility] FIBR[facility]EN 2021-10-07 00:30:00 Alison Zamorano [facility] CBC WITH DIFF 2021-10-07 00:30:00 Alison Zamorano [facility] PROTHROMBIN TIME / INR 2021-10-07 00:30:00 Alison Zamorano [facility] ACTIVATED PARTIAL THRMPLAS 2021-10-07 00:30:00 [facility] FIBRIN[facility]EN 2021-10-07 00:30:00 Lamiman, Alison [facility] HB ABO GROUPING 2021-10-06 21:00:00 [facility] HB ABO GROUPING 2021-10-06 21:00:00 [facility] HB ABO GROUPING 2021-10-06 21:00:00 [facility] POCT TEST 2021-10-06 20:12:00 [facility] 2021-10-06 20:12:00 [facility] POCT TEST 2021-10-06 20:12:00 Stevan Eli [facility] COVID-19 (ID NOW RAPID 2021-10-06 20:09:00 [facility] Branch LAB ONLY COVID 2021-10-06 20:09:00 Florencio Lr [facility] COVID-19 (ID NOW RAPID 2021-10-06 20:09:00 [facility] Medical Branch LAB ONLY COVID 2021-10-06 20:09:00 Florencio Lr [facility] COVID-19 (ID NOW RAPID 2021-10-06 20:09:00 [facility] Medical Branch LAB ONLY COVID 2021-10-06 20:09:00 Florencio Lr [facility] HOSPITAL ADMISSION 2021-10-06 05:01:00 Doctor Unassigned, [facility] [place] [facility] Encounters Start End Encounter Admission Attending Care Care Encounter Source Date/Time Date/Time Type Type Clinicians Facility Department ID 2020-05-03 Inpatient CATALINO Cummins [facility] [id number] [facility] 03:53:[address] [place] [address]'s [facility] 2021-12-09 2021-12-09 Outpatient R [facility] [id number] [facility] 09:30:00 09:30:00 [id number] [facility] 2021-11-16 2021-11-16 Outpatient R [facility] [id number] Univers 13:00:00 13:00:00 [id number] ity [facility] 2021-11-03 2021-11-03 Telephone Claudy [facility] [id number] Univers 00:00:00 00:00:00 Ruthy Y HEALTH [id number] i [id number] [id number] [facility] 113 Branch 2021-10-29 2021-10-29 Outpatient R [facility] [id number] Univers 14:15:00 14:15:00 [id number] ity [facility] 2021-10-29 2021-10-29 Outpatient R [facility] [id number] Univers 14:15:00 14:15:00 ity [facility] 2021-10-21 2021-10-21 Outpatient R [facility] [id number] Univers 14:45:00 14:45:00 [id number] ity [facility] 2021-10-21 2021-10-21 [facility] [id number] Univers 14:45:00 14:45:00 NICOLE ity [facility] 2021-10-21 2021-10-21 Telephone Pgy3 UNIVERSIT [id number] Univers 00:00:00 00:00:00 Y HEALTH [id number] i [id number] [id number] [facility] 113 Branch 2021-10-13 2021-10-13 Transition MARY Richard [id number] Univers 00:00:00 00:00:00 of Care Sandi ARCE [id number] [place] [id number] [facility] 403 Branch 2021-10-13 2021-10-13 Transition MARY Richard [id number] Univers 00:00:00 00:00:00 of Care Sandi ARCE [id number] ity of [place] [id number] [facility] 403 Branch 2021-10-06 2021-10-12 Inpatient R SVEN, [facility] 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 [id number] Univers 14:42:00 14:14:00 Encounter Ngoc Quinteros [id number] ity of [facility] 4.2.7.2.686 Eladio as [id number] [facility] 091 Branch 2021-10-08 2021-10-08 Surgery OC Merino [id number] Univers 01:30:00 03:41:00 Judi WOOD [id number] it y of [facility] 4.2.7.2.686 Eladio as [id number] [facility] 103 Branch 2021-10-07 2021-10-07 Surgery OC Lr [id number] Univers 11:40:00 16:17:00 Florencio CHAUDHARIY 350.1.13.10 it y of [facility] 4.2.7.2.686 Eladio as [id number] [facility] 103 Branch 2021-10-07 2021-10-07 Anesthesia Johanny Martel 1.2.840.114 [id number] Univers 11:39:00 15:55:00 Event Chanel Fabian [id number] ity of [facility] 4.2.7.2.686 Eladio as [id number] [facility] 103 Branch 2021-10-06 2021-10-06 Orders Doctor ABRAHAM 1.2.840.114 [id number] Univers 00:00:00 00:00:00 Only Unassigned, [place] [id number] ity of [facility] 4.2.7.2.686 Eladio as [id number] [facility] 009 Branch 2021-09-272021-10-02 Inpatient X ANTHONY, [facility] 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 STARCH 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 [id number] Univers 20:32:00 05:30:00 MATIAS [facility] 2021-09-14 2021-09-14 Outpatient R CLAUDY, [facility] [id number] Univers 14:00:00 14:00:00 RUTHY [facility] 2021-09-14 2021-09-14 Outpatient R [facility] [id number] Univers 13:30:00 13:30:00 [id number] [facility] 2021-08-24 2021-08-26 Inpatient X BE, [facility] 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 STARCH 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 [id number] Univers 03:17:00 15:30:00 MATIAS [facility] 2021-05-04 2021-05-05 Emergency EM Upatoi, [facility] MEDI.01 [id number] [facility] 01:14:00 14:01:00 [facility] 2020-08-25 2020-08-26 [id number] 02:37:00 18:00:00 DEBRA Gerardo Oleary [facility] 2019-07-13 2019-07-13 Nurse JARAD Douglas 1.2.840.114 [id number] 00:00:00 00:00:00 Triage Aracelis [place]RA[place] 350.1.13.10 [facility] [id number] [id number] 2019-07-13 2019-07-13 Nurse JARAD Baker 1.2.840.114 [id number] 00:00:00 00:00:00 Triage Melinda Leta WOOD 350.1.13.10 [facility] 4.2.7.2.686 [id number] 2018-12-31 2019-01-01 Hospital JARAD Woods [id number] 21:55:55 14:19:00 Encounter Jesse WOOD 350.1.13.10 [place] 4.2.7.2.686 [id number] 2018-12-31 2018-12-31 Nurse Visit, [facility] 1.2.840.114 [id number] 15:10:27 15:53:28 Visit [facility] CONCRETE FLOATER 350.1.13.10 Nurse REGIONAL 4.2.7.2.686 MATERNAL [id number] & CHILD 107 [facility] 2018-12-31 2018-12-31 [facility] 1.2.840.114 [id number] 00:00:00 00:00:00 Louis Guadalupe CONCRETE FLOATER 350.1.13.10 [facility] 4.2.7.2.686 MATERNAL [id number] & CHILD 107 [facility] 2018-12-31 2018-12-31 Telephone WonJARAD aranda 1.2.840.114 [id number] 00:00:00 00:00:00 [place] WOOD 350.1.13.10 [place] [address].2.7.2.686 [id number] 013 2018-12-28 2018-12-29 Emergency Poornimari, [facility] 1.2.476.143 [id number] 19:29:15 00:59:00 Alla Lopez 350.1.13.10 [place] [address].2.7.2.686 [place] [id number] 084 2018-12-28 2018-12-28 Nurse Visit, [facility] 1.2.840.114 [id number] 12:55:55 13:47:08 Visit [facility] CONCRETE FLOATER 350.1.13.10 Nurse [facility] 4.2.7.2.686 MATERNAL [id number] & CHILD 107 [facility] 2018-12-20 2018-12-24 [facility] JARAD Lizama 1.2.840.114 [id number] 18:42:00 13:40:00 Encounter Ree WOOD 350.1.13.10 [place] 4.2.7.2.686 [id number] 070 2018-12-20 2018-12-20 Hog Sticker Ultrasound, [facility] 1.2.840.114 [id number] 11:12:37 11:42:[facility] 350.1.13.10 [facility] 4.2.7.2.686 MATERNAL [id number] & CHILD 369 [facility] 2018-12-20 2018-12-20 Routine Risk, [facility] 1.2.840.114 [id number] 10:20:16 11:05:03 Ang-Rmchp-N CONCRETE FLOATER 350.1.13.10 Visit p/High [facility] 4.2.7.2.686 MATERNAL [id number] & CHILD 107 [facility] 2018-12-18 2018-12-18 Routine Velarde, [facility] 1.2.840.114 [id number] 12:50:29 14:00:55 Roshunda R CONCRETE FLOATER 350.1.13.10 Visit REGIONAL 4.2.7.2.686 MATERNAL [id number] & CHILD 107 [facility] 2018-12-13 2018-12-13 Routine Pool, [facility] 1.2.840.114 [id number] 13:28:19 14:24:11 Resident Y HEALTH 350.1.13.10 Visit [facility] 4.2.7.2.686 [id number] 113 2018-12-13 2018-12-13 Hog Sticker 2, [facility] 1.2.840.11 4 [id number] 12:48:28 13:23:20 Visit Us Room Y HEALTH 350.1.13.10 [facility] 4.2.7.2.686 [id number] 104 2018-12-13 2018-12-13 Orders Doctor JARAD 1.2.840.114 [id number] 00:00:00 00:00:00 Only Unassigned, [place] 350.1.13.10 [facility] 4.2.7.2.686 [id number] 009 2018-12-11 2018-12-11 Case JARAD Chris 1.2.840.114 [id number] 00:00:00 00:00:00 Management Ruba [place] 350.1.13.10 [facility]PITAL 4.2.7.2.686 [id number] 013 2018-12-10 2018-12-10 Routine Faculty, [facility] 1.2.840.114 [id number] 10:35:35 11:46:44 Ang Rmchp CONCRETE FLOATER 350.1.13.10 Visit [facility] 4.2.7.2.686 MATERNAL [id number] & CHILD 107 [facility] 2018-12-06 2018-12-06 Hog Sticker Ultrasound, [facility] 1.2.840.114 [id number] 11:40:06 12:10:06 Visit Ang-Mfm CONCRETE FLOATER 350.1.13.10 [facility] 4.2.7.2.686 MATERNAL [id number] & CHILD 369 [facility] 2018-12-06 2018-12-06 Routine Risk, [facility] 1.2.840.114 [id number] 10:02:15 11:39:46 Ang-Rmchp-N CONCRETE FLOATER 350.1.13.10 Visit p/High [facility] 4.2.7.2.686 MATERNAL [id number] & CHILD 107 [facility] 2018-12-03 2018-12-03 Hospital OlmosLorrie [facility] 1.2.840.114 [id number] 13:57:00 16:45:00 Encounter [facility] 350.1.13.10 [place] 4.2.7.2.686 [place] [id number] 3 2018-12-03 2018-12-03 Routine Faculty, [facility] 1.2.840.114 [id number] 09:27:42 10:36:46 Ang Rmchp CONCRETE FLOATER 350.1.13.10 Visit [facility] 4.2.7.2.686 MATERNAL [id number] & CHILD 107 [facility] 2018-11-29 2018-11-29 Routine Risk, [facility] 1.2.840.114 [id number] 12:45:37 13:38:16 Ang-Rmchp-N CONCRETE FLOATER 350.1.13.10 Visit p/High [facility] 4.2.7.2.686 MATERNAL [id number] & CHILD 107 [facility] Results Test Description Test Time Test Comments Results Result Comments Source SURGICAL PATHOLOGY EXAM 2021-10-12 16:25:43 Test Item Value Reference Range Interpretation Comme nts Case Report (test code = 2783853872) Surgical Pathology ?Case: [id number] ? Authorizing Provider: ?Florencio Lr MD ? Collected: ? 10/07/2021 1537 ?Ordering Location: ? ? [facility] OR ? Received: ?10/07/2021 1807 ? Department ? Pathologist: ? Oscar, Catherine Gutiérrez, ? MD ? Specimen: ? ?UTERINE BODY W/OVARY AND FALLOPIAN TUBE, LEFT, Left ovary ? Final Diagnosis (test code = [id number]uHlEoBv 0488993904) dWMxIHtccnRmMVxlcGljOTYwMlxhbnNpXHNwbHRw J5RychupPYcqZC9oJW9avYrzgWDllODtLORgOvOr f6ypc597fAEnn3usHLDJsumyeFy1rUmtX20ne7H5 SkkjO55dqBGjYDH7ZLTxKQDpaBSgNPJlKWS2TJTj aENaV5ioOUUkQK8vvhinVNnoLWltMBNyvIV5WWUg nGDyG6IfOLKuANdmJVQhhaf1CsZgCf4sxBGmyJyw MFxwYXJkXHBsYWluXGZzMjBccGFyIEEuIFVURVJV UywgQklMQVRFUkFMIEZBTExPUElBTiBUVUJFUywg XILRUXZYQlEOVUzvJBkJHYHFPBIXO40FQIDWIByQ VNWBWEfpA6XWTAnLW2DMVS2ZUMMKSiOgVUZVMUEL N0UOU6LEO7WNCJw7VSqgMHMsBPGpFO3yS6GMPqaC OkSCX7XPXIOSAnGJWQ1BBCTZB21wL6xEYRMWOHAV XkFNRD0QNSDIEJJSEbANFUqFPBxAYwWCKVVUCJEs XAMuhvEnTSImUSMVLcQXEVRPBfhHJIiwS6SBIyPE L3DDVJUDYNLXGGmaNCUoHBQdKB3gYGkADQFQFznZ ZRbnRUTYTc5VWR9OYCVgtTQgWVIvJZKxAIYSQXnH YTsOUsGLAUDHTdtzOWCIJOJYLpHIJWVAW2TubUAc OAEeOSCpVQnZWuIfR5XAFaf6YHPRS1STUyHZP3tH SUNMRVMgXHBhciAgICAgLSBJTlRSQUFSVEVSSUFM IOCSNy0UVRnDCJbLUzDFTAGRFziVCKGBVWTNQYnZ ARRDDBAqtpcaXTHbILWcad85ILN9WvYwz2A0JBGq DwIdVRGzUR0rwEckYPCqIV8tVFFcN2ptpF6hlxw0 WiNcRFXhPsA3QSQmlcD3Teo1AIZmENzfz9oxk4Vq N6VeiINaiOs6e6lfMTXlBbZ3kWWyMEowX7nerwNo jBWxFMEyZBw5cZjkWbDjABYxn5thvhZhKyCmHOKe MXAgGYPjnMgpqwp4uO17QYFwnG1nwOAiNCsftgLa NbM9XFxbMQVbWgY4PHMqeHIdMUXeP9vwXLMeKQzl PNAeRAraeDUvYAO7uZjzm6P3cIUtwHMavBtuSkLx QwDzYPJIz2SqPFa7oSwxA4FwHENvCuE0kRQgHYMn PChwRAKmSYVbhsW7eS42LLcyfsW5uHXfn4Gmz62a v229fE2fjPFcNST1XVHfAANuxHMrKGNsYCX0JDCz eFWqA6uvWJZtPL9mepodTQwlTVmrBYAdfON6ZAIx tIPjT3WiFADpMJtjQRBdhrl9DfAvHc9qxAVpdBsc BDyfq5hop1jhrMJoGri2AYAmCtGvNakfTDehb4Tg d2rnDPOomp8hLLE3aLVlqBcba1F8hOBjQXGhfMVl jdLaXFWrFcQ4RYryOK1fob07DTEvROH7mu7cmJYr dRslncLbaZVjXTwvF3AbAPGwl499SOEfO3MuMDXo e4C4jgVnTnRzQUXswEH7cjV8QBRkNWo6cXZvrqH6 uuBrbCUzE7ickC7qSNRuSX9ylzbhf3rvKNgkHCir BLQgwJJ8tfW7GAJipDSdQ3GthU5yCZXoWKriPAXm olp2TcPrBb6spRBusMixVArkLazbLDnhCVLdhqSy bnRccGduZGVjXHBsYWluXHBsYWluXGYwXGZzMjRc gTqezNhxpJ6pDlTaYgDiAXsgTM2uMFXuJ6xccMFe DVPaFDNuQ4gsWhWkfH1nnYgaRSlrQnYyAbTgNJnt FBYhAWMgJVXpWWEvsvCfbzBgcWrjpvX7uZV1BHUc PBupHKIqSMPdrGTtff9ptDbhFZJrRC2nHXFdcsAm QLnrbSkwWZgxYJH4VVYzjBJdiPPxfFKtWBWflIFk CNZdELSzbVCuXENeoDean6Gge2ZlcEQ5zV7db6ou d2DnYMOuwVV2OR31qaT6vF1sHTJeZB5bSDBgDV8z hBAzlNItTMGwz65qcAvwxoLrIIImonZfGNPbVJmq XGYyXGZzMjhcbGFuZzEwMzNcaGljaFxmMlxkYmNo MVOkHEvhL3zxXbWuZoOdESdlSVB6bI== Clinical Information (test code = menorrhagia 5748700756) Gross Description (test code = v2wbiWJoCKSsrFW0VtPkWNBfl7kho4DldJGs cGy 7115825317) [file] L1IjlmL7EFLarg6= Disclaimer (test code = 2409158915) x5acwPXgPKMld5nkZCJqtRAmJuJgMmT cZnRuYmpc bLXpOIzxtbYsHNjxs2BmB3PhOyDlBHtrrbKgDKFd PvjqiqusXCKgVDN4jvTqHOKvRKllHAZnTQxmUp1v eRPhsXqrEkVhKXClw7khupWVYUqiXjBvG452QWNd MDrpp9blo3JjVQXtcUWeg2V4PVCHnmtgmFj7tCcs Q53lk8R2IwabV7ysCZZzNIIkF9LzLE3xKKHnRec9 XBB5EZU7TWHbIWTeE9BvJF6tSDCdyGHeNLj6h1kf xWhiXQJaVHE7g5weGCvqomTcPO7cxf8jwUq3o3jk phFgOOJlZALtpUHKDHOcY4FenPsqYa7ppIq8dZkk DqeyYMH6Sts5VH9gky30jqj6cQcgSLJvxannXbV8 KHpqZZAydansJEw9KTjkPVUnsLW8MTSokRXbR9Nz BPVuCP3orpe5VOV6IIjlRSYyXlU4HRHmbHFxEQJy aQxuUOeze399TVO7JzTeUD5tD4Ifm0K5dM6hmBWt IDEnmQLePgSwAYOetj6gmTFcYAbvt7DkLWE4vlT8 jGKseBJnCOXvZY97Khycz0HhGupns6CoG78agCH3 MQygh8nzCZ0sQxV3jzFxCUzoc6ajlI9yFzS9MYbn KD0tCZ5uFSZhrP8zgeqcSWQnMwVbjetmLBDdeAfa ynIjJe3nzTlbPDC6EWwvR5scmL3lTtK2SThrG3hs lO3xTDn0OXwyzKN5PHMfoF6jXF6bqceny6zkVIpn CIkzMTTprvG9zoC4VJJztAVnJ9BszX6zVUXgVU3i nszeb2wgRHO5INnbLLLuNBM7EdQuHKPlu4Gtjas2 DbBnb1WjvZLwEBdiX16la108UIBzfmXaZ3hnbKPb ttiszJHgztprNGnajbM8MLMzmaNga8NeQCAxEHK1 IAlxIWrxcBWgBXVsbFdfh6etO3XmrOAyDSOqGXbq XGYxXGZzMjBcbGFuZzEwMzNcaGljaFxmMVxkYmNo [file] M4hgQdMijM1upDqdKYwlMiRkRbDwTSybBQN6gA== Embedded Images (test code = 1557823023) [facility] WITH [id number] 11:52:00 Test Item Value Reference Range Interpretation Comments WBC (test code = See_Comment [Automated 5490-2) message] The sy stem which generated this [...] as normal/abnormal . HGB (test code = 8.3 g/dL 11.6-15.0 L 718-7) HCT (test code = 25.7 % 35.7-45.2 L 4544-3) MCV (test code = 90.2 fL 80.6-95.5 787-2) MCH (test code = 29.1 pg 25.9-32.8 785-6) MCHC (test code = 32.3 g/dL 31.6-35.1 786-4) RDW-SD (test code = 49.1 fL 39.0-49.9 53632-6) RDW-CV (test code = 17.5 % 12.0-15.5 H 788-0) PLT (test code = See_Comment L [Automated 777-3) message] The sy stem which generated this result transmitted reference range : 166 - 358 10*3/ ?L. The reference r susan was not used to interpret this result as normal/abnormal . MPV (test code = 10.3 fL 9.5-12.9 61810-2) NRBC/100 WBC (test See_Comment [Automat ed code = 0622100297) message] The system which generated this result transmitted reference range : 0.0 - 10.0 /100 WBCs. The refer ence range was not u sed to interpret th is result as normal/abnormal . NRBC x10^3 (test code <0.01 See_Comment [Auto mated = 4448272253) message] The s ystem which generated this result transmitted reference range : 10*3/?L. The reference range was not used to interpret this result as normal/abnormal . GRAN MAT (NEUT) % 63.9 % (test code = 770-8) IMM GRAN % (test code 0.20 % = 3996341956) LYMPH % (test code = 23.4 % 736-9) MONO % (test code = 9.6 % 5905-5) EOS % (test code = 2.5 % 713-8) BASO % (test code = 0.4 % 706-2) GRAN MAT x10^3(ANC) 3.28 10*3/uL 1.88-7.09 (test code = 0300686485) IMM GRAN x10^3 (test <0.03 0.00-0.06 code = 0930075526) LYMPH x10^3 (test code 1.20 10*3/uL 1.32-3.29 L = 731-0) MONO x10^3 (test code 0.49 10*3/uL 0.33-0.92 = 742-7) EOS x10^3 (test code = 0.13 10*3/uL 0.03-0.39 711-2) BASO x10^3 (test code <0.03 0.01-0.07 = 704-7) Lab Interpretation Abnormal (test code = 04251-7) [facility] WITHOUT [id number] 00:47:16 Test Item Value Reference Range Interpretation Comments WBC (test code = 6690-2) See_Comment [A utomated message] The system People [employer] Remember generated this result transmit ramana reference range : 4.30 - 11.10 10*3/?L. The reference range was not used to interpret this result as normal/abnormal . RBC (test code = 789-8) See_Comment L [Au tomated message] The system People [employer] Remember generated this result transmit ramana reference range : 3.93 - 5.25 10* 6/?L. The reference r susan was not used to interpret this result as normal/abnormal . HGB (test code = 718-7) 8.5 g/dL 11.6-15.0 L HCT (test code = 4544-3) 26.6 % 35.7-45.2 L MCH (test code = 785-6) 28.8 pg 25.9-32.8 MCV (test code = 787-2) 90.2 fL 80.6-95.5 MCHC (test code = 786-4) 32.0 g/dL 31.6-35.1 PLT (test code = 777-3) See_Comment L [Au tomated message] The system People [employer] Remember generated this result transmit ramana reference range : 166 - 358 10*3/?L. The reference range was not used to interpret this result as normal/abnormal . MPV (test code = 11.5 fL 9.5-12.9 97924-9) RDW-CV (test code = 16.1 % 12.0-15.5 H 788-0) RDW-SD (test code = 50.6 fL 39.0-49.9 H 99164-8) NRBC x10^3 (test code = <0.01 See_Comment [Au tomated message] 8698672924) The system [employer] generated this result transmit ramana reference range : 10*3/?L. The reference range was not used to interpret this result as normal/abnormal . NRBC/100 WBC (test code See_Comment [Au tomated message] = 9907707296) The system [facility] generated this result transmit ramana reference range : 0.0 - 10.0 /100 WBC s. The reference r susan was not used to interpret this result as normal/abnormal . IPF % (test code = 4724257927) Lab Interpretation (test Abnormal code = 19013-1) [facility] WITHOUT [id number] 00:47:16 Test Item Value Reference Range Interpretation Comments WBC (test code = 6690-2) See_Comment [A utomated message] The system [employer] generated this result transmit ramana reference range : 4.30 - 11.10 10*3/?L. The reference range was not used to interpret this result as normal/abnormal . RBC (test code = 789-8) See_Comment L [Au tomated message] The system [employer] generated this result transmit ramana reference range : 3.93 - 5.25 10* 6/?L. The reference r susan was not used to interpret this result as normal/abnormal . HGB (test code = 718-7) 8.5 g/dL 11.6-15.0 L HCT (test code = 4544-3) 26.6 % 35.7-45.2 L MCH (test code = 785-6) 28.8 pg 25.9-32.8 MCV (test code = 787-2) 90.2 fL 80.6-95.5 MCHC (test code = 786-4) 32.0 g/dL 31.6-35.1 PLT (test code = 777-3) See_Comment L [Au tomated message] The system [employer] generated this result transmit ramana reference range : 166 - 358 10*3/?L. The reference range was not used to interpret this result as normal/abnormal . MPV (test code = 11.5 fL 9.5-12.9 40294-8) RDW-CV (test code = 16.1 % 12.0-15.5 H 788-0) RDW-SD (test code = 50.6 fL 39.0-49.9 H 18162-4) NRBC x10^3 (test code = <0.01 See_Comment [Au tomated message] 5720607391) The system [facility] generated this result transmit ramana reference range : 10*3/?L. The reference range was not used to interpret this result as normal/abnormal . NRBC/100 WBC (test code See_Comment [Au tomated message] = 0303536963) The system [facility] generated this result transmit ramana reference range : 0.0 - 10.0 /100 WBC s. The reference r susan was not used to interpret this result as normal/abnormal . IPF % (test code = 2837447345) Lab Interpretation (test Abnormal code = 90828-6) [facility] 00:18:05 Test Item Value Reference Range Interpretation Comments PH (test code = 2) 7.35-7.45 PCO2 (test code = See_Comment [Automate d message] 9816538192) The system [employer] Remember generated this result transmit ramana reference range : 35 - 45 mmHg. The reference range was not used to interpret this result as normal/abnormal . PO2 (test code = See_Comment H [Automated message] 3289922008) The system [employer] Remember generated this result transmit ramana reference range : 80 - 100 mmHg. The reference range was not used to interpret this result as normal/abnormal . HCO3 (test code = See_Comment L [Automate d message] 4676690638) The system [employer] Remember generated this result transmit ramana reference range : 22 - 26 mEq/L. The reference range was not used to interpret this result as normal/abnormal . BE (test code = See_Comment L [Automated message] 5384963222) The system [employer] Remember generated this result transmit ramana reference range : -3.0 - 3.0 mEq/ L. The reference r susan was not used to interpret this result as normal/abnormal . THB (test code = 5.6 g/dL 12.0-16.0 8138403514) %O2HB (test code = 97.8 % 94.0-99.0 7791938396) %COHB ART (test code = 0.8 % 0.0-1.5 8106386802) %METHB ART (test code = 0.8 % 0.4-1.5 3872744285) VOL%O2 ART (test code = 9.2 % 15.0-23.0 L QUES 6011691048) NA (test code = 132 mmol/L 135-145 L 3763257264) K+ (test code = 4.3 mmol/L 3.5-5.0 2943698694) AC CA IONZ (test code = 6.60 mg/dL 4.50-5.30 1090781285) GLUCOSE (test code = 150 mg/dL 70-110 H 2078565637) Lab Interpretation Abnormal (test code = 93321-5) [facility]-11 00:18:05 Test Item Value Reference Range Interpretation Comments PH (test code = 2) 7.35-7.45 PCO2 (test code = See_Comment [Automate d message] 2493885303) The system [employer] Remember generated this result transmit ramana reference range : 35 - 45 mmHg. The reference range was not used to interpret this result as normal/abnormal . PO2 (test code = See_Comment H [Automated message] 1972847925) The system [employer] Remember generated this result transmit ramana reference range : 80 - 100 mmHg. The reference range was not used to interpret this result as normal/abnormal . HCO3 (test code = See_Comment L [Automate d message] 9542418087) The system [employer] Remember generated this result transmit ramana reference range : 22 - 26 mEq/L. The reference range was not used to interpret this result as normal/abnormal . BE (test code = See_Comment L [Automated message] 1453490666) The system People [employer] Remember generated this result transmit ramana reference range : -3.0 - 3.0 mEq/ L. The reference r susan was not used to interpret this result as normal/abnormal . THB (test code = 5.6 g/dL 12.0-16.0 LL 7977141525) %O2HB (test code = 97.8 % 94.0-99.0 5308405090) %COHB ART (test code = 0.8 % 0.0-1.5 1896293915) %METHB ART (test code = 0.8 % 0.4-1.5 8563391674) VOL%O2 ART (test code = 9.2 % 15.0-23.0 L QUES 2210555101) NA (test code = 132 mmol/L 135-145 L 3073040499) K+ (test code = 4.3 mmol/L 3.5-5.0 2238096713) AC CA IONZ (test code = 6.60 mg/dL 4.50-5.30 8666081785) GLUCOSE (test code = 150 mg/dL 70-110 H 8588260909) Lab Interpretation Abnormal (test code = 22020-6) [facility]21-10-11 00:17:20 Test Item Value Reference Range Interpretation Comments PH (test code = 2) 7.35-7.45 PCO2 (test code = See_Comment [Automate d message] 0455001215) The system [employer] h generated this result transmit ramana reference range : 35 - 45 mmHg. The reference range was not used to interpret this result as normal/abnormal . PO2 (test code = See_Comment H [Automated message] 4288348077) The system [employer] h generated this result transmit ramana reference range : 80 - 100 mmHg. The reference range was not used to interpret this result as normal/abnormal . HCO3 (test code = See_Comment [Automate d message] 2159850298) The system e-S[employer] h generated this result transmit ramana reference range : 22 - 26 mEq/L. The reference range was not used to interpret this result as normal/abnormal . BE (test code = See_Comment L [Automated message] 8099131590) The system ic h generated this result transmit ramana reference range : -3.0 - 3.0 mEq/ L. The reference r susan was not used to interpret this result as normal/abnormal . THB (test code = 6.7 g/dL 12.0-16.0 LL 0682129986) %O2HB (test code = 97.9 % 94.0-99.0 7061576584) %COHB ART (test code = 0.8 % 0.0-1.5 8212849371) %METHB ART (test code = 0.4 % 0.4-1.5 0161906752) VOL%O2 ART (test code = 10.3 % 15.0-23.0 L QUES 7443691656) NA (test code = 132 mmol/L 135-145 L 9301326603) K+ (test code = 4.1 mmol/L 3.5-5.0 6741624324) AC CA IONZ (test code = 4.40 mg/dL 4.50-5.30 L 5031360405) GLUCOSE (test code = 173 mg/dL 70-110 H 4306006693) Lab Interpretation Abnormal (test code = 86146-9) [facility]CA[facility]-10-11 00:17:20 Test Item Value Reference Range Interpretation Comments PH (test code = 2) 7.35-7.45 PCO2 (test code = See_Comment [Automate d message] 2437194936) The system [employer] generated this result transmit ramana reference range : 35 - 45 mmHg. The reference range was not used to interpret this result as normal/abnormal . PO2 (test code = See_Comment H [Automated message] 2593140806) The system [employer] generated this result transmit ramana reference range : 80 - 100 mmHg. The reference range was not used to interpret this result as normal/abnormal . HCO3 (test code = See_Comment [Automate d message] 5922145414) The system [employer] generated this result transmit ramana reference range : 22 - 26 mEq/L. The reference range was not used to interpret this result as normal/abnormal . BE (test code = See_Comment L [Automated message] 7680737817) The system [employer] generated this result transmit ramana reference range : -3.0 - 3.0 mEq/ L. The reference r susan was not used to interpret this result as normal/abnormal . THB (test code = 6.7 g/dL 12.0-16.0 LL 5475649649) %O2HB (test code = 97.9 % 94.0-99.0 6477319416) %COHB ART (test code = 0.8 % 0.0-1.5 2151918859) %METHB ART (test code = 0.4 % 0.4-1.5 9858919729) VOL%O2 ART (test code = 10.3 % 15.0-23.0 L QUES 1986237837) NA (test code = 132 mmol/L 135-145 L 2637372802) K+ (test code = 4.1 mmol/L 3.5-5.0 5415449648) AC CA IONZ (test code = 4.40 mg/dL 4.50-5.30 L 7642418869) GLUCOSE (test code = 173 mg/dL 70-110 H 2574805887) Lab Interpretation Abnormal (test code = 12521-3) [facility]:16:35 Test Item Value Reference Range Interpretation Comments PH (test code = 2) 7.35-7.45 PCO2 (test code = See_Comment L [Automate d message] [id number]) The system People to Remember generated this result transmit ramana reference range : 35 - 45 mmHg. The reference range was not used to interpret this result as normal/abnormal . PO2 (test code = See_Comment H [Automated message] [id number]) The system People [employer] Remember generated this result transmit ramana reference range : 80 - 100 mmHg. The reference range was not used to interpret this result as normal/abnormal . HCO3 (test code = See_Comment L [Automate d message] [id number]) The system People to Remember generated this result transmit ramana reference range : 22 - 26 mEq/L. The reference range was not used to interpret this result as normal/abnormal . BE (test code = See_Comment L [Automated message] [id number]) The system People to Remember generated this result transmit ramana reference range : -3.0 - 3.0 mEq/ L. The reference r susan was not used to interpret this result as normal/abnormal . THB (test code = 7.3 g/dL 12.0-16.0 LL [id number]) %O2HB (test code = 98.0 % 94.0-99.0 7075775309) %COHB ART (test code = 0.7 % 0.0-1.5 8476692756) %METHB ART (test code = 0.3 % 0.4-1.5 L 5071558632) VOL%O2 ART (test code = 10.9 % 15.0-23.0 L QUES 1407133538) NA (test code = 133 mmol/L 135-145 L 2986649515) K+ (test code = 4.2 mmol/L 3.5-5.0 7356273203) AC CA IONZ (test code = 4.30 mg/dL 4.50-5.30 L 8489121872) GLUCOSE (test code = 161 mg/dL 70-110 H 0311014200) Lab Interpretation Abnormal (test code = 82951-7) [facility]11 00:16:35 Test Item Value Reference Range Interpretation Comments PH (test code = 2) 7.35-7.45 PCO2 (test code = See_Comment L [Automate d message] [id number]) The system People to Remember generated this result transmit ramana reference range : 35 - 45 mmHg. The reference range was not used to interpret this result as normal/abnormal . PO2 (test code = See_Comment H [Automated message] 2732297653) The system People to Remember generated this result transmit ramana reference range : 80 - 100 mmHg. The reference range was not used to interpret this result as normal/abnormal . HCO3 (test code = See_Comment L [Automate d message] 8622323583) The system People to Remember generated this result transmit ramana reference range : 22 - 26 mEq/L. The reference range was not used to interpret this result as normal/abnormal . BE (test code = See_Comment L [Automated message] [id number]) The system People to Remember generated this result transmit ramana reference range : -3.0 - 3.0 mEq/ L. The reference r susan was not used to interpret this result as normal/abnormal . THB (test code = 7.3 g/dL 12.0-16.0 LL 0115382718) %O2HB (test code = 98.0 % 94.0-99.0 6095047568) %COHB ART (test code = 0.7 % 0.0-1.5 2238150897) %METHB ART (test code = 0.3 % 0.4-1.5 L 8274319992) VOL%O2 ART (test code = 10.9 % 15.0-23.0 L QUES 7857063831) NA (test code = 133 mmol/L 135-145 L 9771924554) K+ (test code = 4.2 mmol/L 3.5-5.0 9972809962) AC CA IONZ (test code = 4.30 mg/dL 4.50-5.30 L 6828254679) GLUCOSE (test code = 161 mg/dL 70-110 H 0716491903) Lab Interpretation Abnormal (test code = 06685-0) [facility] 00:15:34 Test Item Value Reference Range Interpretation Comments PH (test code = 2) 7.35-7.45 PCO2 (test code = See_Comment L [Automate d message] [id number]) The system People to Remember generated this result transmit ramana reference range : 35 - 45 mmHg. The reference range was not used to interpret this result as normal/abnormal . PO2 (test code = See_Comment H [Automated message] 8684349719) The system People to Remember generated this result transmit ramana reference range : 80 - 100 mmHg. The reference range was not used to interpret this result as normal/abnormal . HCO3 (test code = See_Comment L [Automate d message] 4939702420) The system People to Remember generated this result transmit ramana reference range : 22 - 26 mEq/L. The reference range was not used to interpret this result as normal/abnormal . BE (test code = See_Comment [Automated message] [id number]) The system [employer] Remember generated this result transmit ramana reference range : -3.0 - 3.0 mEq/ L. The reference r susan was not used to interpret this result as normal/abnormal . THB (test code = 7.8 g/dL 12.0-16.0 LL 8546826307) %O2HB (test code = 98.1 % 94.0-99.0 3711972415) %COHB ART (test code = 0.9 % 0.0-1.5 3460673093) %METHB ART (test code = 0.2 % 0.4-1.5 L 3800680450) VOL%O2 ART (test code = 12.2 % 15.0-23.0 L QUES 3534609026) NA (test code = 133 mmol/L 135-145 L 2852988299) K+ (test code = 4.3 mmol/L 3.5-5.0 2232687647) AC CA IONZ (test code = 5.30 mg/dL 4.50-5.30 1691285749) GLUCOSE (test code = 111 mg/dL 70-110 H 0670464640) Lab Interpretation Abnormal (test code = 52009-3) [facility]:15:34 Test Item Value Reference Range Interpretation Comments PH (test code = 2) 7.35-7.45 PCO2 (test code = See_Comment L [Automate d message] 8704709011) The system [employer] Remember generated this result transmit ramana reference range : 35 - 45 mmHg. The reference range was not used to interpret this result as normal/abnormal . PO2 (test code = See_Comment H [Automated message] 0599251851) The system [employer] Remember generated this result transmit ramana reference range : 80 - 100 mmHg. The reference range was not used to interpret this result as normal/abnormal . HCO3 (test code = See_Comment L [Automate d message] 1705215917) The system [employer] Remember generated this result transmit ramana reference range : 22 - 26 mEq/L. The reference range was not used to interpret this result as normal/abnormal . BE (test code = See_Comment [Automated message] 7007942164) The system [employer] Remember generated this result transmit ramana reference range : -3.0 - 3.0 mEq/ L. The reference r susan was not used to interpret this result as normal/abnormal . THB (test code = 7.8 g/dL 12.0-16.0 LL 6709647335) %O2HB (test code = 98.1 % 94.0-99.0 9135494408) %COHB ART (test code = 0.9 % 0.0-1.5 5131338825) %METHB ART (test code = 0.2 % 0.4-1.5 L 3042257050) VOL%O2 ART (test code = 12.2 % 15.0-23.0 L QUES 3704967525) NA (test code = 133 mmol/L 135-145 L 4031467447) K+ (test code = 4.3 mmol/L 3.5-5.0 1341968607) AC CA IONZ (test code = 5.30 mg/dL 4.50-5.30 7815578629) GLUCOSE (test code = 111 mg/dL 70-110 H 7229360137) Lab Interpretation Abnormal (test code = 30366-5) [facility] METABOLIC PANEL (NA, K, CL, CO2, GLUCOSE, BUN, CREATININE, CA)2021-10-10 11:50:35 Test Item Value Reference Range Interpretation Comments NA (test code = 135 mmol/L 135-145 2406025790) K (test code = 3.6 mmol/L 3.5-5.0 4033425066) CL (test code = 105 mmol/L 98-108 2670715778) CO2 TOTAL (test code = 30 mmol/L 23-31 5523185061) AGAP (test code = <1 2-16 L 6948925239) BUN (test code = 3 mg/dL 7-23 L 1366760503) GLUCOSE (test code = 102 mg/dL 70-110 9735044241) CREATININE (test code = 0.50 mg/dL 0.50-1.04 8052830650) CALCIUM (test code = 8.1 mg/dL 8.6-10.6 L 3700306694) eGFR (test code = mL/min/1.73m2 7707450361) MICKY (test code = MICKY) Association of [...] tests). Lab Interpretation Abnormal (test code = 72796-4) [facility] METABOLIC PANEL (NA, K, CL, CO2, GLUCOSE, BUN, CREATININE, CA)2021-10-10 11:50:35 Test Item Value Reference Range Interpretation Comments NA (test code = 135 mmol/L 135-145 6065295166) K (test code = 3.6 mmol/L 3.5-5.0 6652033920) CL (test code = 105 mmol/L 98-108 3749127031) CO2 TOTAL (test code = 30 mmol/L 23-31 6630601897) AGAP (test code = <1 2-16 L 3432770407) BUN (test code = 3 mg/dL 7-23 L 2739555992) GLUCOSE (test code = 102 mg/dL 70-110 1328297893) CREATININE (test code = 0.50 mg/dL 0.50-1.04 1010729804) CALCIUM (test code = 8.1 mg/dL 8.6-10.6 L 4032428226) eGFR (test code = mL/min/1.73m2 1432484484) MICKY (test code = MICKY) Association of [...] tests). Lab Interpretation Abnormal (test code = 15532-4) [facility]2022-06-26 11:49:04 Test Item Value Reference Range Interpretation Comments MAGNESIUM (test code = 4900093646) 2.0 mg/dL 1.7-2.4 Lab Interpretation (test code = Normal 34344-0) [facility]2022-06-26 11:49:04 Test Item Value Reference Range Interpretation Comments PHOSPHORUS (test code = 3598129404) 3.4 mg/dL 2.5-5.0 Lab Interpretation (test code = Normal 28283-4) [facility]2022-06-26 11:49:04 Test Item Value Reference Range Interpretation Comments MAGNESIUM (test code = 5898366857) 2.0 mg/dL 1.7-2.4 Lab Interpretation (test code = Normal 71444-6) [facility]2022-06-26 11:49:04 Test Item Value Reference Range Interpretation Comments PHOSPHORUS (test code = 6892079092) 3.4 mg/dL 2.5-5.0 Lab Interpretation (test code = Normal 08491-2) [facility] WITHOUT [id number] 11:26:59 Test Item Value Reference Range Interpretation Comments WBC (test code = 6690-2) See_Comment [A utomated message] The system People [employer] Remember generated this result transmit ramana reference range : 4.30 - 11.10 10*3/?L. The reference range was not used to interpret this result as normal/abnormal . RBC (test code = 789-8) See_Comment L [Au tomated message] The system People [employer] Remember generated this result transmit ramana reference range : 3.93 - 5.25 10* 6/?L. The reference r susan was not used to interpret this result as normal/abnormal . HGB (test code = 718-7) 7.9 g/dL 11.6-15.0 L HCT (test code = 4544-3) 24.1 % 35.7-45.2 L MCH (test code = 785-6) 28.6 pg 25.9-32.8 MCV (test code = 787-2) 87.3 fL 80.6-95.5 MCHC (test code = 786-4) 32.8 g/dL 31.6-35.1 PLT (test code = 777-3) See_Comment L [Au tomated message] The system People [employer] Remember generated this result transmit ramana reference range : 166 - 358 10*3/?L. The reference range was not used to interpret this result as normal/abnormal . MPV (test code = 10.9 fL 9.5-12.9 27150-9) RDW-CV (test code = 16.4 % 12.0-15.5 H 788-0) RDW-SD (test code = 50.1 fL 39.0-49.9 H 09927-3) NRBC x10^3 (test code = <0.01 See_Comment [Au tomated message] 3238238951) The system People [employer] Remember generated this result transmit ramana reference range : 10*3/?L. The reference range was not used to interpret this result as normal/abnormal . NRBC/100 WBC (test code See_Comment [Au tomated message] = 6613782805) The system [employer] generated this result transmit ramana reference range : 0.0 - 10.0 /100 WBC s. The reference r susan was not used to interpret this result as normal/abnormal . IPF % (test code = 4010209596) Lab Interpretation (test Abnormal code = 82255-5) [facility] WITHOUT [id number] 11:26:59 Test Item Value Reference Range Interpretation Comments WBC (test code = 6690-2) See_Comment [A utomated message] The system People [employer] Remember generated this result transmit ramana reference range : 4.30 - 11.10 10*3/?L. The reference range was not used to interpret this result as normal/abnormal . RBC (test code = 789-8) See_Comment L [Au tomated message] The system People [employer] Remember generated this result transmit ramana reference range : 3.93 - 5.25 10* 6/?L. The reference r susan was not used to interpret this result as normal/abnormal . HGB (test code = 718-7) 7.9 g/dL 11.6-15.0 L HCT (test code = 4544-3) 24.1 % 35.7-45.2 L MCH (test code = 785-6) 28.6 pg 25.9-32.8 MCV (test code = 787-2) 87.3 fL 80.6-95.5 MCHC (test code = 786-4) 32.8 g/dL 31.6-35.1 PLT (test code = 777-3) See_Comment L [Au tomated message] The system People [employer] Remember generated this result transmit ramana reference range : 166 - 358 10*3/?L. The reference range was not used to interpret this result as normal/abnormal . MPV (test code = 10.9 fL 9.5-12.9 85371-7) RDW-CV (test code = 16.4 % 12.0-15.5 H 788-0) RDW-SD (test code = 50.1 fL 39.0-49.9 H 94901-7) NRBC x10^3 (test code = <0.01 See_Comment [Au tomated message] 5811821888) The system [employer] Remember generated this result transmit ramana reference range : 10*3/?L. The reference range was not used to interpret this result as normal/abnormal . NRBC/100 WBC (test code See_Comment [Au tomated message] = 6140431338) The system [employer] generated this result transmit ramana reference range : 0.0 - 10.0 /100 WBC s. The reference r susan was not used to interpret this result as normal/abnormal . IPF % (test code = 3487469101) Lab Interpretation (test Abnormal code = 31480-4) [facility] WITHOUT [id number] 00:02:03 Test Item Value Reference Range Interpretation Comments WBC (test code = 6690-2) See_Comment [A utomated message] The system [employer] generated this result transmit ramana reference range : 4.30 - 11.10 10*3/?L. The reference range was not used to interpret this result as normal/abnormal . RBC (test code = 789-8) See_Comment L [Au tomated message] The system [employer] generated this result transmit ramana reference range : 3.93 - 5.25 10* 6/?L. The reference r susan was not used to interpret this result as normal/abnormal . HGB (test code = 718-7) 7.7 g/dL 11.6-15.0 L HCT (test code = 4544-3) 23.4 % 35.7-45.2 L MCH (test code = 785-6) 28.7 pg 25.9-32.8 MCV (test code = 787-2) 87.3 fL 80.6-95.5 MCHC (test code = 786-4) 32.9 g/dL 31.6-35.1 PLT (test code = 777-3) See_Comment L [Au tomated message] The system [employer] generated this result transmit ramana reference range : 166 - 358 10*3/?L. The reference range was not used to interpret this result as normal/abnormal . MPV (test code = 11.0 fL 9.5-12.9 96385-1) RDW-CV (test code = 15.9 % 12.0-15.5 H 788-0) RDW-SD (test code = 49.4 fL 39.0-49.9 22825-8) NRBC x10^3 (test code = See_Comment [Au tomated message] 1351688580) The system [employer] generated this result transmit ramana reference range : 10*3/?L. The reference range was not used to interpret this result as normal/abnormal . NRBC/100 WBC (test code See_Comment [Au tomated message] = 1536358579) The system [facility] generated this result transmit ramana reference range : 0.0 - 10.0 /100 WBC s. The reference r susan was not used to interpret this result as normal/abnormal . IPF % (test code = 2213449061) Lab Interpretation (test Abnormal code = 33882-8) [facility] WITHOUT [id number] 00:02:03 Test Item Value Reference Range Interpretation Comments WBC (test code = 6690-2) See_Comment [A utomated message] The system [employer] generated this result transmit ramana reference range : 4.30 - 11.10 10*3/?L. The reference range was not used to interpret this result as normal/abnormal . RBC (test code = 789-8) See_Comment L [Au tomated message] The system [employer] Remember generated this result transmit ramana reference range : 3.93 - 5.25 10* 6/?L. The reference r susan was not used to interpret this result as normal/abnormal . HGB (test code = 718-7) 7.7 g/dL 11.6-15.0 L HCT (test code = 4544-3) 23.4 % 35.7-45.2 L MCH (test code = 785-6) 28.7 pg 25.9-32.8 MCV (test code = 787-2) 87.3 fL 80.6-95.5 MCHC (test code = 786-4) 32.9 g/dL 31.6-35.1 PLT (test code = 777-3) See_Comment L [Au tomated message] The system [employer] Remember generated this result transmit ramana reference range : 166 - 358 10*3/?L. The reference range was not used to interpret this result as normal/abnormal . MPV (test code = 11.0 fL 9.5-12.9 38150-8) RDW-CV (test code = 15.9 % 12.0-15.5 H 788-0) RDW-SD (test code = 49.4 fL 39.0-49.9 41742-3) NRBC x10^3 (test code = See_Comment [Au tomated message] 5852563845) The system [employer] generated this result transmit ramana reference range : 10*3/?L. The reference range was not used to interpret this result as normal/abnormal . NRBC/100 WBC (test code See_Comment [Au tomated message] = 2176048413) The system [facility] generated this result transmit ramana reference range : 0.0 - 10.0 /100 WBC s. The reference r susan was not used to interpret this result as normal/abnormal . IPF % (test code = 4814288444) Lab Interpretation (test Abnormal code = 55678-6) [facility] WITHOUT [id number] 16:52:03 Test Item Value Reference Range Interpretation Comments WBC (test code = 6690-2) See_Comment [A utomated message] The system [facility] generated this result transmit ramana reference range : 4.30 - 11.10 10*3/?L. The reference range was not used to interpret this result as normal/abnormal . RBC (test code = 789-8) See_Comment L [Au tomated message] The system [facility] generated this result transmit ramana reference range : 3.93 - 5.25 10* 6/?L. The reference r susan was not used to interpret this result as normal/abnormal . HGB (test code = 718-7) 7.5 g/dL 11.6-15.0 L HCT (test code = 4544-3) 22.3 % 35.7-45.2 L MCH (test code = 785-6) 28.7 pg 25.9-32.8 MCV (test code = 787-2) 85.4 fL 80.6-95.5 MCHC (test code = 786-4) 33.6 g/dL 31.6-35.1 PLT (test code = 777-3) See_Comment L [Au tomated message] The system [facility] generated this result transmit ramana reference range : 166 - 358 10*3/?L. The reference range was not used to interpret this result as normal/abnormal . MPV (test code = 10.4 fL 9.5-12.9 84016-0) RDW-CV (test code = 15.8 % 12.0-15.5 H 788-0) RDW-SD (test code = 47.8 fL 39.0-49.9 00731-0) NRBC x10^3 (test code = See_Comment [Au tomated message] 5915553459) The system [employer] Remember generated this result transmit ramana reference range : 10*3/?L. The reference range was not used to interpret this result as normal/abnormal . NRBC/100 WBC (test code See_Comment [Au tomated message] = 1329099611) The system [facility] generated this result transmit ramana reference range : 0.0 - 10.0 /100 WBC s. The reference r susan was not used to interpret this result as normal/abnormal . IPF % (test code = 5646764366) Lab Interpretation (test Abnormal code = 28527-6) [facility] WITHOUT [id number] 16:52:03 Test Item Value Reference Range Interpretation Comments WBC (test code = 6690-2) See_Comment [A utomated message] The system [employer] Remember generated this result transmit ramana reference range : 4.30 - 11.10 10*3/?L. The reference range was not used to interpret this result as normal/abnormal . RBC (test code = 789-8) See_Comment L [Au tomated message] The system [employer] generated this result transmit ramana reference range : 3.93 - 5.25 10* 6/?L. The reference r susan was not used to interpret this result as normal/abnormal . HGB (test code = 718-7) 7.5 g/dL 11.6-15.0 L HCT (test code = 4544-3) 22.3 % 35.7-45.2 L MCH (test code = 785-6) 28.7 pg 25.9-32.8 MCV (test code = 787-2) 85.4 fL 80.6-95.5 MCHC (test code = 786-4) 33.6 g/dL 31.6-35.1 PLT (test code = 777-3) See_Comment L [Au tomated message] The system [employer] generated this result transmit ramana reference range : 166 - 358 10*3/?L. The reference range was not used to interpret this result as normal/abnormal . MPV (test code = 10.4 fL 9.5-12.9 80502-6) RDW-CV (test code = 15.8 % 12.0-15.5 H 788-0) RDW-SD (test code = 47.8 fL 39.0-49.9 53541-9) NRBC x10^3 (test code = See_Comment [Au tomated message] 8735903150) The system [employer] generated this result transmit ramana reference range : 10*3/?L. The reference range was not used to interpret this result as normal/abnormal . NRBC/100 WBC (test code See_Comment [Au tomated message] = 0101755776) The system [employer] generated this result transmit ramana reference range : 0.0 - 10.0 /100 WBC s. The reference r susan was not used to interpret this result as normal/abnormal . IPF % (test code = 4511666770) Lab Interpretation (test Abnormal code = 29784-4) [facility]2022-06-25 13:44:06 Test Item Value Reference Range Interpretation Comments MAGNESIUM (test code = 1323815627) 1.6 mg/dL 1.7-2.4 L Lab Interpretation (test code = Abnormal 37786-7) [facility]2022-06-25 13:44:06 Test Item Value Reference Range Interpretation Comments PHOSPHORUS (test code = 2597580034) 3.0 mg/dL 2.5-5.0 Lab Interpretation (test code = Normal 93711-9) [facility]2022-06-25 13:44:06 Test Item Value Reference Range Interpretation Comments MAGNESIUM (test code = 8564424969) 1.6 mg/dL 1.7-2.4 L Lab Interpretation (test code = Abnormal 56989-8) [facility]2022-06-25 13:44:06 Test Item Value Reference Range Interpretation Comments PHOSPHORUS (test code = 9399673091) 3.0 mg/dL 2.5-5.0 Lab Interpretation (test code = Normal 89945-2) [facility] Packed RBC (in units), 1 Units 2021-10-09 10:06:26 Test Item Value Reference Range Interpretation Comments Cross Match Result Compatible (test code = 4409) ISBT Blood Type Code (test code = 269408) Unit Blood Type (test A Pos code = 4410) Unit Number (test [id number] code = 4411) Blood Expiration Date & Time (test code = 786804) Status Information Issued (test code = 4412) Product Red Blood Cells Identification (test code = 4413) Product Code (test [id number] Performed at [facility] code = 4414) Laboratory Services [facility] Blood [address] s [id number] Free: [phone] A No. [id number] [facility] Packed RBC (in units), 1 Units 2021-10-09 10:06:26 Test Item Value Reference Range Interpretation Comments Cross Match Result Compatible (test code = 4409) ISBT Blood Type Code (test code = 350123) Unit Blood Type (test A Pos code = 4410) Unit Number (test [id number] code = 4411) Blood Expiration Date & Time (test code = 502983) Status Information Issued (test code = 4412) Product Red Blood Cells Identification (test code = 4413) Product Code (test [id number] Performed at [facility] code = 4414) Laboratory Services [facility] Blood [address] s [id number] Free: [phone] A No. [id number] [facility] (NA, K, CL, CO2, GLUCOSE, BUN, CREATININE, CA)2021-10-09 10:00:59 Test Item Value Reference Range Interpretation Comments NA (test code = 134 mmol/L 135-145 L 4669412399) K (test code = 3.9 mmol/L 3.5-5.0 8932716973) CL (test code = 106 mmol/L 98-108 0127595709) CO2 TOTAL (test code = 29 mmol/L 23-31 3323648950) AGAP (test code = <1 2-16 L 2621582434) BUN (test code = 7 mg/dL 7-23 0504472894) GLUCOSE (test code = 119 mg/dL 70-110 H 4482473385) CREATININE (test code = 0.49 mg/dL 0.50-1.04 L 5240739675) CALCIUM (test code = 7.5 mg/dL 8.6-10.6 L 4296263672) eGFR (test code = mL/min/1.73m2 3173682480) MICKY (test code = MICKY) Association of [...] tests). Lab Interpretation Abnormal (test code = 84746-5) [facility] METABOLIC PANEL (NA, K, CL, CO2, GLUCOSE, BUN, CREATININE, CA)2021-10-09 10:00:59 Test Item Value Reference Range Interpretation Comments NA (test code = 134 mmol/L 135-145 L 8529642375) K (test code = 3.9 mmol/L 3.5-5.0 7420990394) CL (test code = 106 mmol/L 98-108 6649888848) CO2 TOTAL (test code = 29 mmol/L 23-31 7465993961) AGAP (test code = <1 2-16 L 6737858425) BUN (test code = 7 mg/dL 7-23 6741960738) GLUCOSE (test code = 119 mg/dL 70-110 H 8055768996) CREATININE (test code = 0.49 mg/dL 0.50-1.04 L 0519875548) CALCIUM (test code = 7.5 mg/dL 8.6-10.6 L 6136458764) eGFR (test code = mL/min/1.73m2 4555624341) MICKY (test code = MICKY) Association of [...] tests). Lab Interpretation Abnormal (test code = 12133-6) [facility] WITHOUT [id number] 09:00:48 Test Item Value Reference Range Interpretation Comments WBC (test code = See_Comment [Automated message] 6690-2) The system [employer] generated this result transmitted ref erence range: 4.30 - 1 1.10 10*3/?L. The reference range was not used to int erpret this result as normal/abnormal . RBC (test code = 789-8) See_Comment L [Au tomated message] The system [employer] generated this result transmitted ref erence range: 3.93 - 5 .25 10*6/?L. The reference range was not used to int erpret this result as normal/abnormal . HGB (test code = 718-7) 6.6 g/dL 11.6-15.0 L HCT (test code = 19.5 % 35.7-45.2 L 4544-3) MCH (test code = 785-6) 28.7 pg 25.9-32.8 MCV (test code = 787-2) 84.8 fL 80.6-95.5 MCHC (test code = 33.8 g/dL 31.6-35.1 786-4) PLT (test code = 777-3) See_Comment L [Au tomated message] The system [employer] generated this result transmitted ref erence range: 166 - 35 8 10*3/?L. The reference range was not used to int erpret this result as normal/abnormal . MPV (test code = 10.9 fL 9.5-12.9 55357-5) RDW-CV (test code = 16.3 % 12.0-15.5 H 788-0) RDW-SD (test code = 48.7 fL 39.0-49.9 16253-1) NRBC x10^3 (test code = <0.01 See_Comment [Au tomated message] 5738722549) The system [employer] generated this result transmitted ref erence range: 10*3/?L. The reference range was not used to int erpret this result as normal/abnormal . NRBC/100 WBC (test code See_Comment [Au tomated message] = 4124851036) The system [facility] generated this result transmitted ref erence range: 0.0 - 10 .0 /100 WBCs. The reference range was not used to int erpret this result as normal/abnormal . IPF % (test code = 3.6 % 1.3-7.7 Platelet count 7416795765) measured by fluorescence me thod. Lab Interpretation Abnormal (test code = 27419-1) [facility] WITHOUT [id number] 09:00:48 Test Item Value Reference Range Interpretation Comments WBC (test code = See_Comment [Automated message] 6690-2) The system [employer] generated this result transmitted ref erence range: 4.30 - 1 1.10 10*3/?L. The reference range was not used to int erpret this result as normal/abnormal . RBC (test code = 789-8) See_Comment L [Au tomated message] The system [employer] generated this result transmitted ref erence range: 3.93 - 5 .25 10*6/?L. The reference range was not used to int erpret this result as normal/abnormal . HGB (test code = 718-7) 6.6 g/dL 11.6-15.0 L HCT (test code = 19.5 % 35.7-45.2 L 4544-3) MCH (test code = 785-6) 28.7 pg 25.9-32.8 MCV (test code = 787-2) 84.8 fL 80.6-95.5 MCHC (test code = 33.8 g/dL 31.6-35.1 786-4) PLT (test code = 777-3) See_Comment L [Au tomated message] The system [employer] generated this result transmitted ref erence range: 166 - 35 8 10*3/?L. The reference range was not used to int erpret this result as normal/abnormal . MPV (test code = 10.9 fL 9.5-12.9 11817-1) RDW-CV (test code = 16.3 % 12.0-15.5 H 788-0) RDW-SD (test code = 48.7 fL 39.0-49.9 60182-3) NRBC x10^3 (test code = <0.01 See_Comment [Au tomated message] 2364116154) The system [employer] generated this result transmitted ref erence range: 10*3/?L. The reference range was not used to int erpret this result as normal/abnormal . NRBC/100 WBC (test code See_Comment [Au tomated message] = 7960404561) The system [employer] generated this result transmitted ref erence range: 0.0 - 10 .0 /100 WBCs. The reference range was not used to int erpret this result as normal/abnormal . IPF % (test code = 3.6 % 1.3-7.7 Platelet count 9227902906) measured by fluorescence me thod. Lab Interpretation Abnormal (test code = 42896-5) [facility] WITHOUT [id number] 01:42:07 Test Item Value Reference Range Interpretation Comments WBC (test code = See_Comment [Automated message] 6690-2) The system [employer] generated this result transmitted ref erence range: 4.30 - 1 1.10 10*3/?L. The reference range was not used to int erpret this result as normal/abnormal . RBC (test code = 789-8) See_Comment L [Au tomated message] The system [employer] generated this result transmitted ref erence range: 3.93 - 5 .25 10*6/?L. The reference range was not used to int erpret this result as normal/abnormal . HGB (test code = 718-7) 7.2 g/dL 11.6-15.0 L HCT (test code = 20.6 % 35.7-45.2 L 4544-3) MCH (test code = 785-6) 29.3 pg 25.9-32.8 MCV (test code = 787-2) 83.7 fL 80.6-95.5 MCHC (test code = 35.0 g/dL 31.6-35.1 786-4) PLT (test code = 777-3) See_Comment L [Au tomated message] The system [employer] generated this result transmitted ref erence range: 166 - 35 8 10*3/?L. The reference range was not used to int erpret this result as normal/abnormal . MPV (test code = 10.6 fL 9.5-12.9 89165-4) RDW-CV (test code = 16.2 % 12.0-15.5 H 788-0) RDW-SD (test code = 48.3 fL 39.0-49.9 92922-1) NRBC x10^3 (test code = See_Comment [Au tomated message] 1098522277) The system People [employer] Remember generated this result transmitted ref erence range: 10*3/?L. The reference range was not used to int erpret this result as normal/abnormal . NRBC/100 WBC (test code See_Comment [Au tomated message] = 6575968091) The system [employer] generated this result transmitted ref erence range: 0.0 - 10 .0 /100 WBCs. The reference range was not used to int erpret this result as normal/abnormal . IPF % (test code = 3.3 % 1.3-7.7 Platelet count 5872580458) measured by fluorescence me thod. Lab Interpretation Abnormal (test code = 46383-6) [facility] WITHOUT [id number] 01:42:07 Test Item Value Reference Range Interpretation Comments WBC (test code = See_Comment [Automated message] 6690-2) The system People [employer] Remember generated this result transmitted ref erence range: 4.30 - 1 1.10 10*3/?L. The reference range was not used to int erpret this result as normal/abnormal . RBC (test code = 789-8) See_Comment L [Au tomated message] The system People [employer] Remember generated this result transmitted ref erence range: 3.93 - 5 .25 10*6/?L. The reference range was not used to int erpret this result as normal/abnormal . HGB (test code = 718-7) 7.2 g/dL 11.6-15.0 L HCT (test code = 20.6 % 35.7-45.2 L 4544-3) MCH (test code = 785-6) 29.3 pg 25.9-32.8 MCV (test code = 787-2) 83.7 fL 80.6-95.5 MCHC (test code = 35.0 g/dL 31.6-35.1 786-4) PLT (test code = 777-3) See_Comment L [Au tomated message] The system People [employer] Remember generated this result transmitted ref erence range: 166 - 35 8 10*3/?L. The reference range was not used to int erpret this result as normal/abnormal . MPV (test code = 10.6 fL 9.5-12.9 47267-2) RDW-CV (test code = 16.2 % 12.0-15.5 H 788-0) RDW-SD (test code = 48.3 fL 39.0-49.9 15891-3) NRBC x10^3 (test code = See_Comment [Au tomated message] 1332172874) The system People [employer] Remember generated this result transmitted ref erence range: 10*3/?L. The reference range was not used to int erpret this result as normal/abnormal . NRBC/100 WBC (test code See_Comment [Au tomated message] = 6852567265) The system [employer] generated this result transmitted ref erence range: 0.0 - 10 .0 /100 WBCs. The reference range was not used to int erpret this result as normal/abnormal . IPF % (test code = 3.3 % 1.3-7.7 Platelet count 4214019816) measured by fluorescence me thod. Lab Interpretation Abnormal (test code = 05306-6) [facility] METABOLIC PANEL (NA, K, CL, CO2, GLUCOSE, BUN, CREATININE, CA)2021-10-09 01:19:05 Test Item Value Reference Range Interpretation Comments NA (test code = 135 mmol/L 135-145 3349424800) K (test code = 4.0 mmol/L 3.5-5.0 7262521946) CL (test code = 106 mmol/L 98-108 1530400807) CO2 TOTAL (test code = 27 mmol/L 23-31 3110187332) AGAP (test code = 2-16 9372776781) BUN (test code = 8 mg/dL 7-23 2862413818) GLUCOSE (test code = 98 mg/dL 70-110 8901272833) CREATININE (test code = 0.49 mg/dL 0.50-1.04 L 5344004420) CALCIUM (test code = 7.6 mg/dL 8.6-10.6 L 1720331431) eGFR (test code = mL/min/1.73m2 3681009133) MICKY (test code = MICKY) Association of [...] tests). Lab Interpretation Abnormal (test code = 23476-2) [facility] METABOLIC PANEL (NA, K, CL, CO2, GLUCOSE, BUN, CREATININE, CA)2021-10-09 01:19:05 Test Item Value Reference Range Interpretation Comments NA (test code = 135 mmol/L 135-145 7063345865) K (test code = 4.0 mmol/L 3.5-5.0 1735004344) CL (test code = 106 mmol/L 98-108 0904958534) CO2 TOTAL (test code = 27 mmol/L 23-31 0011892436) AGAP (test code = 2-16 9046158164) BUN (test code = 8 mg/dL 7-23 5508410212) GLUCOSE (test code = 98 mg/dL 70-110 2755742534) CREATININE (test code = 0.49 mg/dL 0.50-1.04 L 7906038317) CALCIUM (test code = 7.6 mg/dL 8.6-10.6 L 2346383854) eGFR (test code = mL/min/1.73m2 2280840019) MICKY (test code = MICKY) Association of [...] tests). Lab Interpretation Abnormal (test code = 90298-7) [facility] METABOLIC PANEL (NA, K, CL, CO2, GLUCOSE, BUN, CREATININE, CA)2021-10-08 16:28:34 Test Item Value Reference Range Interpretation Comments NA (test code = 134 mmol/L 135-145 L 5628444679) K (test code = 4.1 mmol/L 3.5-5.0 0684133403) CL (test code = 106 mmol/L 98-108 4277762545) CO2 TOTAL (test code = 26 mmol/L 23-31 7322970909) AGAP (test code = 2-16 6325172071) BUN (test code = 6 mg/dL 7-23 L 6590080218) GLUCOSE (test code = 124 mg/dL 70-110 H 7072217710) CREATININE (test code = 0.48 mg/dL 0.50-1.04 L 4879122442) CALCIUM (test code = 8.0 mg/dL 8.6-10.6 L 9010794755) eGFR (test code = mL/min/1.73m2 6824307012) MICKY (test code = MICKY) Association of [...] tests). Lab Interpretation Abnormal (test code = 22511-4) [facility] METABOLIC PANEL (NA, K, CL, CO2, GLUCOSE, BUN, CREATININE, CA)2021-10-08 16:28:34 Test Item Value Reference Range Interpretation Comments NA (test code = 134 mmol/L 135-145 L 3969798589) K (test code = 4.1 mmol/L 3.5-5.0 5597651793) CL (test code = 106 mmol/L 98-108 6153314723) CO2 TOTAL (test code = 26 mmol/L 23-31 4840843406) AGAP (test code = 2-16 5478882199) BUN (test code = 6 mg/dL 7-23 L 1407919745) GLUCOSE (test code = 124 mg/dL 70-110 H 6529482324) CREATININE (test code = 0.48 mg/dL 0.50-1.04 L 6286184406) CALCIUM (test code = 8.0 mg/dL 8.6-10.6 L 1284259595) eGFR (test code = mL/min/1.73m2 0146385536) MICKY (test code = MICKY) Association of [...] tests). Lab Interpretation Abnormal (test code = 87914-7) [facility] METABOLIC PANEL (NA, K, CL, CO2, GLUCOSE, BUN, CREATININE, CA)2021-10-08 16:28:34 Test Item Value Reference Range Interpretation Comments NA (test code = 134 mmol/L 135-145 L 2743603296) K (test code = 4.1 mmol/L 3.5-5.0 4431431595) CL (test code = 106 mmol/L 98-108 9759525608) CO2 TOTAL (test code = 26 mmol/L 23-31 7097511372) AGAP (test code = 2-16 3622006576) BUN (test code = 6 mg/dL 7-23 L 1063604222) GLUCOSE (test code = 124 mg/dL 70-110 H 9717887912) CREATININE (test code = 0.48 mg/dL 0.50-1.04 L 6209057047) CALCIUM (test code = 8.0 mg/dL 8.6-10.6 L 8312748309) eGFR (test code = mL/min/1.73m2 4876734149) MICKY (test code = MICKY) Association of [...] tests). Lab Interpretation Abnormal (test code = 44720-4) [facility] WITHOUT [id number] 16:00:11 Test Item Value Reference Range Interpretation Comments WBC (test code = See_Comment [Automated message] 6690-2) The system People [employer] Remember generated this result transmitted ref erence range: 4.30 - 1 1.10 10*3/?L. The reference range was not used to int erpret this result as normal/abnormal . RBC (test code = 789-8) See_Comment L [Au tomated message] The system People [employer] Remember generated this result transmitted ref erence range: 3.93 - 5 .25 10*6/?L. The reference range was not used to int erpret this result as normal/abnormal . HGB (test code = 718-7) 7.6 g/dL 11.6-15.0 L HCT (test code = 22.1 % 35.7-45.2 L 4544-3) MCH (test code = 785-6) 29.2 pg 25.9-32.8 MCV (test code = 787-2) 85.0 fL 80.6-95.5 MCHC (test code = 34.4 g/dL 31.6-35.1 786-4) PLT (test code = 777-3) See_Comment L [Au tomated message] The system [employer] Remember generated this result transmitted ref erence range: 166 - 35 8 10*3/?L. The reference range was not used to int erpret this result as normal/abnormal . MPV (test code = 10.6 fL 9.5-12.9 41599-7) RDW-CV (test code = 15.9 % 12.0-15.5 H 788-0) RDW-SD (test code = 47.8 fL 39.0-49.9 03230-7) NRBC x10^3 (test code = See_Comment [Au tomated message] 5626681867) The system [employer] Remember generated this result transmitted ref erence range: 10*3/?L. The reference range was not used to int erpret this result as normal/abnormal . NRBC/100 WBC (test code See_Comment [Au tomated message] = 1091088339) The system [employer] generated this result transmitted ref erence range: 0.0 - 10 .0 /100 WBCs. The reference range was not used to int erpret this result as normal/abnormal . IPF % (test code = 6.3 % 1.3-7.7 Platelet count 6474287141) measured by fluorescence me thod. Lab Interpretation Abnormal (test code = 73641-2) [facility] WITHOUT [id number] 16:00:11 Test Item Value Reference Range Interpretation Comments WBC (test code = See_Comment [Automated message] 6690-2) The system [employer] Remember generated this result transmitted ref erence range: 4.30 - 1 1.10 10*3/?L. The reference range was not used to int erpret this result as normal/abnormal . RBC (test code = 789-8) See_Comment L [Au tomated message] The system [employer] Remember generated this result transmitted ref erence range: 3.93 - 5 .25 10*6/?L. The reference range was not used to int erpret this result as normal/abnormal . HGB (test code = 718-7) 7.6 g/dL 11.6-15.0 L HCT (test code = 22.1 % 35.7-45.2 L 4544-3) MCH (test code = 785-6) 29.2 pg 25.9-32.8 MCV (test code = 787-2) 85.0 fL 80.6-95.5 MCHC (test code = 34.4 g/dL 31.6-35.1 786-4) PLT (test code = 777-3) See_Comment L [Au tomated message] The system [employer] Remember generated this result transmitted ref erence range: 166 - 35 8 10*3/?L. The reference range was not used to int erpret this result as normal/abnormal . MPV (test code = 10.6 fL 9.5-12.9 35992-7) RDW-CV (test code = 15.9 % 12.0-15.5 H 788-0) RDW-SD (test code = 47.8 fL 39.0-49.9 88269-1) NRBC x10^3 (test code = See_Comment [Au tomated message] 3840393550) The system [employer] Remember generated this result transmitted ref erence range: 10*3/?L. The reference range was not used to int erpret this result as normal/abnormal . NRBC/100 WBC (test code See_Comment [Au tomated message] = 3081579526) The system [facility] generated this result transmitted ref erence range: 0.0 - 10 .0 /100 WBCs. The reference range was not used to int erpret this result as normal/abnormal . IPF % (test code = 6.3 % 1.3-7.7 Platelet count 2616782208) measured by fluorescence me thod. Lab Interpretation Abnormal (test code = 57038-0) [facility] WITHOUT [id number] 16:00:11 Test Item Value Reference Range Interpretation Comments WBC (test code = See_Comment [Automated message] 6690-2) The system [employer] Remember generated this result transmitted ref erence range: 4.30 - 1 1.10 10*3/?L. The reference range was not used to int erpret this result as normal/abnormal . RBC (test code = 789-8) See_Comment L [Au tomated message] The system [employer] Remember generated this result transmitted ref erence range: 3.93 - 5 .25 10*6/?L. The reference range was not used to int erpret this result as normal/abnormal . HGB (test code = 718-7) 7.6 g/dL 11.6-15.0 L HCT (test code = 22.1 % 35.7-45.2 L 4544-3) MCH (test code = 785-6) 29.2 pg 25.9-32.8 MCV (test code = 787-2) 85.0 fL 80.6-95.5 MCHC (test code = 34.4 g/dL 31.6-35.1 786-4) PLT (test code = 777-3) See_Comment L [Au tomated message] The system [employer] Remember generated this result transmitted ref erence range: 166 - 35 8 10*3/?L. The reference range was not used to int erpret this result as normal/abnormal . MPV (test code = 10.6 fL 9.5-12.9 39506-7) RDW-CV (test code = 15.9 % 12.0-15.5 H 788-0) RDW-SD (test code = 47.8 fL 39.0-49.9 39034-5) NRBC x10^3 (test code = See_Comment [Au tomated message] 9375172979) The system [employer] Remember generated this result transmitted ref erence range: 10*3/?L. The reference range was not used to int erpret this result as normal/abnormal . NRBC/100 WBC (test code See_Comment [Au tomated message] = 1168059628) The system [employer] generated this result transmitted ref erence range: 0.0 - 10 .0 /100 WBCs. The reference range was not used to int erpret this result as normal/abnormal . IPF % (test code = 6.3 % 1.3-7.7 Platelet count 5800196686) measured by fluorescence me thod. Lab Interpretation Abnormal (test code = 79795-7) [facility] 15:36:16 Test Item Value Reference Range Interpretation Comments HGB A1C (test code = 5.3 % 4.0-5.7 4548-4) MICKY (test code = MICKY) Reference RangesNormal: <5.7%Prediabetes: 5.7 - 6.4%Diabetes: > 6.5% Lab Interpretation (test Normal code = 88689-1) [facility] 15:36:16 Test Item Value Reference Range Interpretation Comments HGB A1C (test code = 5.3 % 4.0-5.7 4548-4) MICKY (test code = MICKY) Reference RangesNormal: <5.7%Prediabetes: 5.7 - 6.4%Diabetes: > 6.5% Lab Interpretation (test Normal code = 34474-2) [facility]21-10-08 15:36:16 Test Item Value Reference Range Interpretation Comments HGB A1C (test code = 5.3 % 4.0-5.7 4548-4) MICKY (test code = MICKY) Reference RangesNormal: <5.7%Prediabetes: 5.7 - 6.4%Diabetes: > 6.5% Lab Interpretation (test Normal code = 49260-7) [facility] (NA, K, CL, CO2, GLUCOSE, BUN, CREATININE, CA)2021-10-08 13:25:28 Test Item Value Reference Range Interpretation Comments NA (test code = 135 mmol/L 135-145 1366642695) K (test code = 4.0 mmol/L 3.5-5.0 1180604102) CL (test code = 110 mmol/L 98-108 H 0479977291) CO2 TOTAL (test code = 23 mmol/L 23-31 1110459605) AGAP (test code = 2-16 6889199285) BUN (test code = 8 mg/dL 7-23 4150838630) GLUCOSE (test code = 98 mg/dL 70-110 0197335405) CREATININE (test code = 0.48 mg/dL 0.50-1.04 L 9070650590) CALCIUM (test code = 9.7 mg/dL 8.6-10.6 3732447094) eGFR (test code = mL/min/1.73m2 4285156408) MICKY (test code = MICKY) Association of [...] tests). Lab Interpretation Abnormal (test code = 62547-7) [facility] METABOLIC PANEL (NA, K, CL, CO2, GLUCOSE, BUN, CREATININE, CA)2021-10-08 13:25:28 Test Item Value Reference Range Interpretation Comments NA (test code = 135 mmol/L 135-145 4106495374) K (test code = 4.0 mmol/L 3.5-5.0 9412358764) CL (test code = 110 mmol/L 98-108 H 3216162339) CO2 TOTAL (test code = 23 mmol/L 23-31 2420872818) AGAP (test code = 2-16 5096945774) BUN (test code = 8 mg/dL 7-23 0132984234) GLUCOSE (test code = 98 mg/dL 70-110 9744265036) CREATININE (test code = 0.48 mg/dL 0.50-1.04 L 3353618801) CALCIUM (test code = 9.7 mg/dL 8.6-10.6 6845535809) eGFR (test code = mL/min/1.73m2 3872786325) MICKY (test code = MICKY) Association of [...] tests). Lab Interpretation Abnormal (test code = 99779-7) [facility] (NA, K, CL, CO2, GLUCOSE, BUN, CREATININE, CA)2021-10-08 13:25:28 Test Item Value Reference Range Interpretation Comments NA (test code = 135 mmol/L 135-145 4904798175) K (test code = 4.0 mmol/L 3.5-5.0 4153430093) CL (test code = 110 mmol/L 98-108 H 1913865648) CO2 TOTAL (test code = 23 mmol/L 23-31 2879573107) AGAP (test code = 2-16 7660952977) BUN (test code = 8 mg/dL 7-23 8878587313) GLUCOSE (test code = 98 mg/dL 70-110 1035598299) CREATININE (test code = 0.48 mg/dL 0.50-1.04 L 6173859087) CALCIUM (test code = 9.7 mg/dL 8.6-10.6 0385358924) eGFR (test code = mL/min/1.73m2 9591556683) MICKY (test code = MICKY) Association of [...] tests). Lab Interpretation Abnormal (test code = 52609-8) [facility] 13:19:15 Test Item Value Reference Range Interpretation Comments MAGNESIUM (test code = 5304485072) 1.4 mg/dL 1.7-2.4 L Lab Interpretation (test code = Abnormal 00672-2) [facility] 13:19:15 Test Item Value Reference Range Interpretation Comments PHOSPHORUS (test code = 2560873375) 4.3 mg/dL 2.5-5.0 Lab Interpretation (test code = Normal 97782-3) [facility]29660[facility] (ALB,T.PRO,BILI T,BU/BC,ALT,AST,ALK PHOS)2021-10-08 13:19:15 Test Item Value Reference Range Interpretation Comments TOTAL BILI (test code = 0012241302) 1.5 mg/dL 0.1-1.1 H BILI UNCON (test code = 9145751356) 1.3 mg/dL 0.1-1.1 H BILI CONJ (test code = 0120984066) 0.0 mg/dL 0.0-0.3 T PROTEIN (test code = 4180051462) 4.9 g/dL 6.3-8.2 L ALBUMIN (test code = 7266914670) 2.7 g/dL 3.5-5.0 L ALK PHOS (test code = 1327795031) 46 U/L 34-122 ALTv (test code = 1742-6) 13 U/L 5-35 AST(SGOT) (test code = 2259035695) 24 U/L 13-40 Lab Interpretation (test code = Abnormal 68724-4) [facility] 13:19:15 Test Item Value Reference Range Interpretation Comments MAGNESIUM (test code = 9617504780) 1.4 mg/dL 1.7-2.4 L Lab Interpretation (test code = Abnormal 55200-3) [facility] 13:19:15 Test Item Value Reference Range Interpretation Comments PHOSPHORUS (test code = 1387314399) 4.3 mg/dL 2.5-5.0 Lab Interpretation (test code = Normal 13172-0) [facility]73714[facility] (ALB,T.PRO,BILI T,BU/BC,ALT,AST,ALK PHOS)2021-10-08 13:19:15 Test Item Value Reference Range Interpretation Comments TOTAL BILI (test code = 3548260373) 1.5 mg/dL 0.1-1.1 H BILI UNCON (test code = 8551097692) 1.3 mg/dL 0.1-1.1 H BILI CONJ (test code = 0271748861) 0.0 mg/dL 0.0-0.3 T PROTEIN (test code = 6382969049) 4.9 g/dL 6.3-8.2 L ALBUMIN (test code = 6751159643) 2.7 g/dL 3.5-5.0 L ALK PHOS (test code = 5892508961) 46 U/L 34-122 ALTv (test code = 1742-6) 13 U/L 5-35 AST(SGOT) (test code = 5365980688) 24 U/L 13-40 Lab Interpretation (test code = Abnormal 02130-1) [facility] 13:19:15 Test Item Value Reference Range Interpretation Comments MAGNESIUM (test code = 7829228083) 1.4 mg/dL 1.7-2.4 L Lab Interpretation (test code = Abnormal 68551-9) [facility] 13:19:15 Test Item Value Reference Range Interpretation Comments PHOSPHORUS (test code = 1185844770) 4.3 mg/dL 2.5-5.0 Lab Interpretation (test code = Normal 59269-0) [facility] (72948[facility] (ALB,T.PRO,BILI T,BU/BC,ALT,AST,ALK PHOS)2021-10-08 13:19:15 Test Item Value Reference Range Interpretation Comments TOTAL BILI (test code = 6361920368) 1.5 mg/dL 0.1-1.1 H BILI UNCON (test code = 5226566983) 1.3 mg/dL 0.1-1.1 H BILI CONJ (test code = 0897269177) 0.0 mg/dL 0.0-0.3 T PROTEIN (test code = 4258245858) 4.9 g/dL 6.3-8.2 L ALBUMIN (test code = 6495725156) 2.7 g/dL 3.5-5.0 L ALK PHOS (test code = 1755851706) 46 U/L 34-122 ALTv (test code = 1742-6) 13 U/L 5-35 AST(SGOT) (test code = 2834070125) 24 U/L 13-40 Lab Interpretation (test code = Abnormal 97251-7) [facility] [id number] 11:26:11 Test Item Value Reference Range Interpretation Comments WBC (test code = See_Comment [Automated 5085-2) message] The sy stem which generated this [...] as normal/abnormal . HGB (test code = 8.0 g/dL 11.6-15.0 L 718-7) HCT (test code = 23.6 % 35.7-45.2 L 4544-3) MCV (test code = 84.6 fL 80.6-95.5 787-2) MCH (test code = 28.7 pg 25.9-32.8 785-6) MCHC (test code = 33.9 g/dL 31.6-35.1 786-4) RDW-SD (test code = 46.1 fL 39.0-49.9 41849-0) RDW-CV (test code = 15.2 % 12.0-15.5 788-0) PLT (test code = See_Comment L [Automated 777-3) message] The sy stem which generated this result transmitted reference range : 166 - 358 10*3/ ?L. The reference r susan was not used to interpret this result as normal/abnormal . MPV (test code = 11.0 fL 9.5-12.9 03886-7) IPF % (test code = 4.9 % 1.3-7.7 Platelet count 1433577491) measured by fluorescence method. NRBC/100 WBC (test See_Comment [Automat ed code = 5432094782) message] The system which generated this result transmitted reference range : 0.0 - 10.0 /100 WBCs. The refer ence range was not u sed to interpret th is result as normal/abnormal . NRBC x10^3 (test code <0.01 See_Comment [Auto mated = 1182630532) message] The s ystem which generated this result transmitted reference range : 10*3/?L. The reference range was not used to interpret this result as normal/abnormal . GRAN MAT (NEUT) % 84.1 % (test code = 770-8) IMM GRAN % (test code 0.60 % = 2990075675) LYMPH % (test code = 4.2 % 736-9) MONO % (test code = 11.0 % 5905-5) EOS % (test code = 0.0 % 713-8) BASO % (test code = 0.1 % 706-2) GRAN MAT x10^3(ANC) 6.05 10*3/uL 1.88-7.09 (test code = 8853817593) IMM GRAN x10^3 (test 0.04 10*3/uL 0.00-0.06 code = 6966193703) LYMPH x10^3 (test code 0.30 10*3/uL 1.32-3.29 L = 731-0) MONO x10^3 (test code 0.79 10*3/uL 0.33-0.92 = 742-7) EOS x10^3 (test code = <0.03 0.03-0.39 L 711-2) BASO x10^3 (test code <0.03 0.01-0.07 = 704-7) POLYCHROMASIA (test 2+ See_Comment [Automa ramana code = 44746-5) message] The system which generated this result transmitted reference range : 2+. The referen ce range was not u sed to interpret th is result as normal/abnormal . Lab Interpretation Abnormal (test code = 51546-3) [facility] WITH [id number] 11:26:11 Test Item Value Reference Range Interpretation Comments WBC (test code = See_Comment [Automated 6690-2) message] The sy stem which generated this result transmitted reference range : 4.30 - 11.10 10*3/?L. The reference range was not used to interpret this result as normal/abnormal . RBC (test code = See_Comment L [Automated 659-8) message] The sy stem which generated this result transmitted reference range : 3.93 - 5.25 10*6/?L. The reference range was not used to interpret this result as normal/abnormal . HGB (test code = 8.0 g/dL 11.6-15.0 L 718-7) HCT (test code = 23.6 % 35.7-45.2 L 4544-3) MCV (test code = 84.6 fL 80.6-95.5 787-2) MCH (test code = 28.7 pg 25.9-32.8 785-6) MCHC (test code = 33.9 g/dL 31.6-35.1 786-4) RDW-SD (test code = 46.1 fL 39.0-49.9 15623-4) RDW-CV (test code = 15.2 % 12.0-15.5 788-0) PLT (test code = See_Comment L [Automated 777-3) message] The sy stem which generated this result transmitted reference range : 166 - 358 10*3/ ?L. The reference r susan was not used to interpret this result as normal/abnormal . MPV (test code = 11.0 fL 9.5-12.9 86283-9) IPF % (test code = 4.9 % 1.3-7.7 Platelet count 5764957713) measured by fluorescence method. NRBC/100 WBC (test See_Comment [Automat ed code = 4296624730) message] The system which generated this result transmitted reference range : 0.0 - 10.0 /100 WBCs. The refer ence range was not u sed to interpret th is result as normal/abnormal . NRBC x10^3 (test code <0.01 See_Comment [Auto mated = 3984400059) message] The s ystem which generated this result transmitted reference range : 10*3/?L. The reference range was not used to interpret this result as normal/abnormal . GRAN MAT (NEUT) % 84.1 % (test code = 770-8) IMM GRAN % (test code 0.60 % = 1945474670) LYMPH % (test code = 4.2 % 736-9) MONO % (test code = 11.0 % 5905-5) EOS % (test code = 0.0 % 713-8) BASO % (test code = 0.1 % 706-2) GRAN MAT x10^3(ANC) 6.05 10*3/uL 1.88-7.09 (test code = [id number]) IMM GRAN x10^3 (test 0.04 10*3/uL 0.00-0.06 code = [id number]) LYMPH x10^3 (test code 0.30 10*3/uL 1.32-3.29 L = 731-0) MONO x10^3 (test code 0.79 10*3/uL 0.33-0.92 = 742-7) EOS x10^3 (test code = <0.03 0.03-0.39 L 711-2) BASO x10^3 (test code <0.03 0.01-0.07 = 704-7) POLYCHROMASIA (test 2+ See_Comment [Automa ramana code = 27785-5) message] The system which generated this result transmitted reference range : 2+. The referen ce range was not u sed to interpret th is result as normal/abnormal . Lab Interpretation Abnormal (test code = 72408-2) [facility] WITH [id number] 11:26:11 Test Item Value Reference Range Interpretation Comments WBC (test code = See_Comment [Automated 1490-2) message] The sy stem which generated this [...] as normal/abnormal . HGB (test code = 8.0 g/dL 11.6-15.0 L 718-7) HCT (test code = 23.6 % 35.7-45.2 L 4544-3) MCV (test code = 84.6 fL 80.6-95.5 787-2) MCH (test code = 28.7 pg 25.9-32.8 785-6) MCHC (test code = 33.9 g/dL 31.6-35.1 786-4) RDW-SD (test code = 46.1 fL 39.0-49.9 33155-0) RDW-CV (test code = 15.2 % 12.0-15.5 788-0) PLT (test code = See_Comment L [Automated 777-3) message] The sy stem which generated this result transmitted reference range : 166 - 358 10*3/ ?L. The reference r susan was not used to interpret this result as normal/abnormal . MPV (test code = 11.0 fL 9.5-12.9 10136-0) IPF % (test code = 4.9 % 1.3-7.7 Platelet count [id number]) measured by fluorescence method. NRBC/100 WBC (test See_Comment [Automat ed code = [id number]) message] The system which generated this result transmitted reference range : 0.0 - 10.0 /100 WBCs. The refer ence range was not u sed to interpret th is result as normal/abnormal . NRBC x10^3 (test code <0.01 See_Comment [Auto mated = [id number]) message] The s ystem which generated this result transmitted reference range : 10*3/?L. The reference range was not used to interpret this result as normal/abnormal . GRAN MAT (NEUT) % 84.1 % (test code = 770-8) IMM GRAN % (test code 0.60 % = 8929306767) LYMPH % (test code = 4.2 % 736-9) MONO % (test code = 11.0 % 5905-5) EOS % (test code = 0.0 % 713-8) BASO % (test code = 0.1 % 706-2) GRAN MAT x10^3(ANC) 6.05 10*3/uL 1.88-7.09 (test code = 7302320362) IMM GRAN x10^3 (test 0.04 10*3/uL 0.00-0.06 code = 7987606940) LYMPH x10^3 (test code 0.30 10*3/uL 1.32-3.29 L = 731-0) MONO x10^3 (test code 0.79 10*3/uL 0.33-0.92 = 742-7) EOS x10^3 (test code = <0.03 0.03-0.39 L 711-2) BASO x10^3 (test code <0.03 0.01-0.07 = 704-7) POLYCHROMASIA (test 2+ See_Comment [Automa ramana code = 60369-5) message] The system which generated this result transmitted reference range : 2+. The referen ce range was not u sed to interpret th is result as normal/abnormal . Lab Interpretation Abnormal (test code = 31677-6) [facility] / [id number] 11:04:07 Test Item Value Reference Range Interpretation Comments PROTIME PATIENT (test See_Comment L [Auto mated message] code = 5964-2) The system [employer] generated this result transmitted ref erence range: 12.0 - 1 4.7 Seconds. The reference range was not used to int erpret this result as normal/abnormal . INR (test code = 6301-6) Nor mal INR <1.1; Warfarin Therap eutic range 2.0 to 3. 0 or 2.5 to 3.5, dep ending upon the indica tions. Lab Interpretation (test Abnormal code = 84655-5) [facility] / [id number] 11:04:07 Test Item Value Reference Range Interpretation Comments PROTIME PATIENT (test See_Comment L [Auto mated message] code = 5964-2) The system [employer] generated this result transmitted ref erence range: 12.0 - 1 4.7 Seconds. The reference range was not used to int erpret this result as normal/abnormal . INR (test code = 6301-6) Nor mal INR <1.1; Warfarin Therap eutic range 2.0 to 3. 0 or 2.5 to 3.5, dep ending upon the indica tions. Lab Interpretation (test Abnormal code = 87851-4) [facility] / [id number] 11:04:07 Test Item Value Reference Range Interpretation Comments PROTIME PATIENT (test See_Comment L [Auto mated message] code = 5964-2) The system [employer] generated this result transmitted ref erence range: 12.0 - 1 4.7 Seconds. The reference range was not used to int erpret this result as normal/abnormal . INR (test code = 6301-6) Nor mal INR <1.1; Warfarin Therap eutic range 2.0 to 3. 0 or 2.5 to 3.5, dep ending upon the indica tions. Lab Interpretation (test Abnormal code = 86543-9) [facility] 10:56:58 Test Item Value Reference Range Interpretation Comments Fibrinogen (test code = 8282438013) 233 mg/dL 167-453 Lab Interpretation (test code = Normal 76220-9) [facility] 10:56:58 Test Item Value Reference Range Interpretation Comments Fibrinogen (test code = 1317120595) 233 mg/dL 167-453 Lab Interpretation (test code = Normal 33207-7) [facility] 10:56:58 Test Item Value Reference Range Interpretation Comments Fibrinogen (test code = 4029731200) 233 mg/dL 167-453 Lab Interpretation (test code = Normal 13246-1) [facility] THRM[facility]AS [id number] 10:55:23 Test Item Value Reference Range Interpretation Comments APTT Patient (test code = See_Comment [ Automated message] 3-2) The system People [employer] Remember generated this result transmitted ref erence range: 26 - 36 Seconds. The re ference range was not u sed to interpret this result as normal/abnor mal. Lab Interpretation (test Normal code = 57192-5) [facility] [id number] 10:55:23 Test Item Value Reference Range Interpretation Comments APTT Patient (test code = See_Comment [ Automated message] 3-2) The system People [employer] Remember generated this result transmitted ref erence range: 26 - 36 Seconds. The re ference range was not u sed to interpret this result as normal/abnor mal. Lab Interpretation (test Normal code = 06901-2) [facility] [id number] 10:55:23 Test Item Value Reference Range Interpretation Comments APTT Patient (test code = See_Comment [ Automated message] 3-2) The system People [employer] Remember generated this result transmitted ref erence range: 26 - 36 Seconds. The re ference range was not u sed to interpret this result as normal/abnor mal. Lab Interpretation (test Normal code = 16167-0) [facility] Hospital[facility] 20 + Lactic [id number] 10:32:44 Test Item Value Reference Range Interpretation Comments PH (test code = 2) 7.35-7.45 PCO2 (test code = See_Comment [Automate d 5683547422) message] The sy stem which generated this result transmitted reference range : 35 - 45 mmHg. The reference range was not used to interpret this result as normal/abnormal . PO2 (test code = See_Comment H [Automated 5163865965) message] The sy stem which generated this result transmitted reference range : 80 - 100 mmHg. The reference range was not used to interpret this result as normal/abnormal . HCO3 (test code = See_Comment [Automate d 8649145012) message] The sy stem which generated this result transmitted reference range : 22 - 26 mEq/L. The reference range was not used to interpret this result as normal/abnormal . BE (test code = See_Comment [Automated 3610031516) message] The sy stem which generated this result transmitted reference range : -3.0 - 3.0 mEq/ L. The reference r susan was not used to interpret this result as normal/abnormal . THB (test code = 7.7 g/dL 12.0-16.0 LL 2475981958) %O2HB (test code = 97.4 % 94.0-99.0 8336589507) %COHB ART (test code = 1.4 % 0.0-1.5 4084670709) %METHB ART (test code = 0.3 % 0.4-1.5 L 1253403389) VOL%O2 ART (test code = 11.0 % 15.0-23.0 L 5392792966) NA (test code = 132 mmol/L 135-145 L 1480298017) K+ (test code = 3.9 mmol/L 3.5-5.0 6172755158) AC CA IONZ (test code = 5.40 mg/dL 4.50-5.30 H 8502216325) GLUCOSE (test code = 98 mg/dL 70-110 8012883127) LACTIC ACID (test code 1.16 mmol/L 0.50-2.20 = 5282887488) Lab Interpretation Abnormal (test code = 50762-2) [facility] 20 + Lactic [id number] 10:32:44 Test Item Value Reference Range Interpretation Comments PH (test code = 2) 7.35-7.45 PCO2 (test code = See_Comment [Automate d 5135239670) message] The sy stem which generated this result transmitted reference range : 35 - 45 mmHg. The reference range was not used to interpret this result as normal/abnormal . PO2 (test code = See_Comment H [Automated 2921311101) message] The sy stem which generated this result transmitted reference range : 80 - 100 mmHg. The reference range was not used to interpret this result as normal/abnormal . HCO3 (test code = See_Comment [Automate d 2281817101) message] The sy stem which generated this result transmitted reference range : 22 - 26 mEq/L. The reference range was not used to interpret this result as normal/abnormal . BE (test code = See_Comment [Automated 8528078971) message] The sy stem which generated this result transmitted reference range : -3.0 - 3.0 mEq/ L. The reference r susan was not used to interpret this result as normal/abnormal . THB (test code = 7.7 g/dL 12.0-16.0 LL 0762626882) %O2HB (test code = 97.4 % 94.0-99.0 5343753125) %COHB ART (test code = 1.4 % 0.0-1.5 7058587111) %METHB ART (test code = 0.3 % 0.4-1.5 L 6857578029) VOL%O2 ART (test code = 11.0 % 15.0-23.0 L 6530453703) NA (test code = 132 mmol/L 135-145 L 2848552524) K+ (test code = 3.9 mmol/L 3.5-5.0 1213098555) AC CA IONZ (test code = 5.40 mg/dL 4.50-5.30 H 2752865692) GLUCOSE (test code = 98 mg/dL 70-110 8351211599) LACTIC ACID (test code 1.16 mmol/L 0.50-2.20 = 5940630545) Lab Interpretation Abnormal (test code = 65940-2) [facility] 20 + Lactic [id number] 10:32:44 Test Item Value Reference Range Interpretation Comments PH (test code = 2) 7.35-7.45 PCO2 (test code = See_Comment [Automate d 2507774183) message] The sy stem which generated this result transmitted reference range : 35 - 45 mmHg. The reference range was not used to interpret this result as normal/abnormal . PO2 (test code = See_Comment H [Automated 6826278175) message] The sy stem which generated this result transmitted reference range : 80 - 100 mmHg. The reference range was not used to interpret this result as normal/abnormal . HCO3 (test code = See_Comment [Automate d 1358470051) message] The sy stem which generated this result transmitted reference range : 22 - 26 mEq/L. The reference range was not used to interpret this result as normal/abnormal . BE (test code = See_Comment [Automated 7073447703) message] The sy stem which generated this result transmitted reference range : -3.0 - 3.0 mEq/ L. The reference r susan was not used to interpret this result as normal/abnormal . THB (test code = 7.7 g/dL 12.0-16.0 LL 2149804756) %O2HB (test code = 97.4 % 94.0-99.0 8488619616) %COHB ART (test code = 1.4 % 0.0-1.5 2215531516) %METHB ART (test code = 0.3 % 0.4-1.5 L 8103572136) VOL%O2 ART (test code = 11.0 % 15.0-23.0 L 1621857616) NA (test code = 132 mmol/L 135-145 L 2908843538) K+ (test code = 3.9 mmol/L 3.5-5.0 8794851853) AC CA IONZ (test code = 5.40 mg/dL 4.50-5.30 H 6631295109) GLUCOSE (test code = 98 mg/dL 70-110 2429362732) LACTIC ACID (test code 1.16 mmol/L 0.50-2.20 = 6979241727) Lab Interpretation Abnormal (test code = 16067-5) [facility]Pro[facility] Time / [id number] 10:25:01 Test Item Value Reference Range Interpretation Comments PROTIME PATIENT (test See_Comment L [Auto mated message] code = 5964-2) The system wh ich generated this result transmitted ref erence range: 12.0 - 1 4.7 Seconds. The reference range was not used to int erpret this result as normal/abnormal . INR (test code = 6301-6) Nor mal INR <1.1; Warfarin Therap eutic range 2.0 to 3. 0 or 2.5 to 3.5, dep ending upon the indica tions. Lab Interpretation (test Abnormal code = 16324-8) [facility] / [id number] 10:25:01 Test Item Value Reference Range Interpretation Comments PROTIME PATIENT (test See_Comment L [Auto mated message] code = 5964-2) The system [employer] generated this result transmitted ref erence range: 12.0 - 1 4.7 Seconds. The reference range was not used to int erpret this result as normal/abnormal . INR (test code = 6301-6) Nor mal INR <1.1; Warfarin Therap eutic range 2.0 to 3. 0 or 2.5 to 3.5, dep ending upon the indica tions. Lab Interpretation (test Abnormal code = 18876-5) [facility] HospitalPro[facility] Time / [id number] 10:25:01 Test Item Value Reference Range Interpretation Comments PROTIME PATIENT (test See_Comment L [Auto mated message] code = 5964-2) The system [employer] generated this result transmitted ref erence range: 12.0 - 1 4.7 Seconds. The reference range was not used to int erpret this result as normal/abnormal . INR (test code = 6301-6) Nor mal INR <1.1; Warfarin Therap eutic range 2.0 to 3. 0 or 2.5 to 3.5, dep ending upon the indica tions. Lab Interpretation (test Abnormal code = 11768-1) [facility] HospitalPrepare Plasma (in units)~2021-10-08 09:48:16 Test Item Value Reference Range Interpretation Comments Unit Blood Type (test A Pos code = 4410) ISBT Blood Type Code (test code = 902400) Unit Number (test code [id number] = 4411) Blood Expiration Date & Time (test code = 945664) Status Information Issued (test code = 4412) Product Identification FFP (test code = 4413) Product Code (test K3229G08 Performed at [facility] code = 4414) Laboratory Services - [facility] Blood [address] [place] [address]Lkhz Free: [phone] A No. [id number] [facility] Plasma (in units)~2021-10-08 09:48:16 Test Item Value Reference Range Interpretation Comments Unit Blood Type (test A Pos code = 4410) ISBT Blood Type Code (test code = 723733) Unit Number (test code [id number] = 4411) Blood Expiration Date & Time (test code = 852513) Status Information Issued (test code = 4412) Product Identification FFP (test code = 4413) Product Code (test E4398T99 Performed at [facility] code = 4414) Laboratory Services - [address] [address]Yvlt Free: [phone] A No. [id number] [facility] Plasma (in units)~2021-10-08 09:48:16 Test Item Value Reference Range Interpretation Comments Unit Blood Type (test A Pos code = 4410) ISBT Blood Type Code (test code = 910679) Unit Number (test code [id number] = 4411) Blood Expiration Date & Time (test code = 236330) Status Information Issued (test code = 4412) Product Identification FFP (test code = 4413) Product Code (test A5020G26 Performed at [facility] code = 4414) Laboratory Services - [address] [address]Tmrn Free: [phone] A No. [id number] [facility] Packed RBC (in units)2021-10-08 09:47:11 Test Item Value Reference Range Interpretation Comments Cross Match Result Compatible (test code = 4409) ISBT Blood Type Code (test code = 059096) Unit Blood Type (test A Pos code = 4410) Unit Number (test [id number] code = 4411) Blood Expiration Date & Time (test code = 812423) Status Information Issued (test code = 4412) Product Red Blood Cells Identification (test code = 4413) Product Code (test R4015F29 Performed at [facility] code = 4414) Laboratory Services - [facility] Blood [address] [address]Muhf Free: [phone] A No. [id number] [facility] Packed RBC (in units)2021-10-08 09:47:11 Test Item Value Reference Range Interpretation Comments Cross Match Result Compatible (test code = 4409) ISBT Blood Type Code (test code = 332689) Unit Blood Type (test A Pos code = 4410) Unit Number (test [id number] code = 4411) Blood Expiration Date & Time (test code = 009624) Status Information Issued (test code = 4412) Product Red Blood Cells Identification (test code = 4413) Product Code (test O0136G41 Performed at [facility] code = 4414) Laboratory Services - [facility] Blood [address] [address]Sboc Free: [phone] A No. [id number] [facility] Packed RBC (in units)2021-10-08 09:47:11 Test Item Value Reference Range Interpretation Comments Cross Match Result Compatible (test code = 4409) ISBT Blood Type Code (test code = 162861) Unit Blood Type (test A Pos code = 4410) Unit Number (test [id number] code = 4411) Blood Expiration Date & Time (test code = 764260) Status Information Issued (test code = 4412) Product Red Blood Cells Identification (test code = 4413) Product Code (test M2965S29 Performed at [facility] code = 4414) Laboratory Services [facility] Blood [address] [address]Yqkm Free: [phone] A No. [id number] [facility] HospitalFIBRINOGEN2022-06-24 08:38:17 FibrinogenComment: PT/INR failed. Fib autoverified. Need new order. Spoke to MCKENZIE Mireles/Dr. Streeter. This is a corrected result. ?Previous result was 165 mg/dL on 10[facility]2021 [facility] [id number] 08:38:17FibrinogenComment: PT/INR failed. Fib autoverified. Need new order. Spoke to MCKENZIE Mireles/Dr. Streeter. This is a corrected result. ?Previous result was 165 mg/dL on 10/08/2021 [facility] SERVICESHill [facility] HospitalFIBRINOGEN2022-06-24 08:38:17FibrinogenComment: PT/INR failed. Fib autoverified. Need new order. Spoke to MCKENZIE Mireles/Dr. Streeter. This is a corrected result. ?Previous result was 165 mg/dL on 10/08/2021 at [facility] SERVICESUn[facility] EdinburgCBC WITHOUT [id number] 08:34:10 Test Item Value Reference Range Interpretation Comments WBC (test code = See_Comment [Automated message] 6690-2) The system People [employer] Remember generated this result transmitted ref erence range: 4.30 - 1 1.10 10*3/?L. The reference range was not used to int erpret this result as normal/abnormal . RBC (test code = 789-8) See_Comment L [Au tomated message] The system People [employer] Remember generated this result transmitted ref erence range: 3.93 - 5 .25 10*6/?L. The reference range was not used to int erpret this result as normal/abnormal . HGB (test code = 718-7) 6.1 g/dL 11.6-15.0 L HCT (test code = 18.5 % 35.7-45.2 L 4544-3) MCH (test code = 785-6) 29.3 pg 25.9-32.8 MCV (test code = 787-2) 88.9 fL 80.6-95.5 MCHC (test code = 33.0 g/dL 31.6-35.1 786-4) PLT (test code = 777-3) See_Comment L [Au tomated message] The system People [employer] Remember generated this result transmitted ref erence range: 166 - 35 8 10*3/?L. The reference range was not used to int erpret this result as normal/abnormal . MPV (test code = 11.4 fL 9.5-12.9 57069-6) RDW-CV (test code = 14.8 % 12.0-15.5 788-0) RDW-SD (test code = 47.3 fL 39.0-49.9 87068-7) NRBC x10^3 (test code = <0.01 See_Comment [Au tomated message] 1298483512) The system People [employer] Remember generated this result transmitted ref erence range: 10*3/?L. The reference range was not used to int erpret this result as normal/abnormal . NRBC/100 WBC (test code See_Comment [Au tomated message] = 5309761401) The system [employer] generated this result transmitted ref erence range: 0.0 - 10 .0 /100 WBCs. The reference range was not used to int erpret this result as normal/abnormal . IPF % (test code = 5.9 % 1.3-7.7 Platelet count 7362177166) measured by fluorescence me thod. Lab Interpretation Abnormal (test code = 02839-6) [facility] WITHOUT [id number] 08:34:10 Test Item Value Reference Range Interpretation Comments WBC (test code = See_Comment [Automated message] 6690-2) The system People [employer] Remember generated this result transmitted ref erence range: 4.30 - 1 1.10 10*3/?L. The reference range was not used to int erpret this result as normal/abnormal . RBC (test code = 789-8) See_Comment L [Au tomated message] The system People [employer] Remember generated this result transmitted ref erence range: 3.93 - 5 .25 10*6/?L. The reference range was not used to int erpret this result as normal/abnormal . HGB (test code = 718-7) 6.1 g/dL 11.6-15.0 L HCT (test code = 18.5 % 35.7-45.2 L 4544-3) MCH (test code = 785-6) 29.3 pg 25.9-32.8 MCV (test code = 787-2) 88.9 fL 80.6-95.5 MCHC (test code = 33.0 g/dL 31.6-35.1 786-4) PLT (test code = 777-3) See_Comment L [Au tomated message] The system People [employer] Remember generated this result transmitted ref erence range: 166 - 35 8 10*3/?L. The reference range was not used to int erpret this result as normal/abnormal . MPV (test code = 11.4 fL 9.5-12.9 10529-3) RDW-CV (test code = 14.8 % 12.0-15.5 788-0) RDW-SD (test code = 47.3 fL 39.0-49.9 30616-5) NRBC x10^3 (test code = <0.01 See_Comment [Au tomated message] 5022032928) The system People [employer] Remember generated this result transmitted ref erence range: 10*3/?L. The reference range was not used to int erpret this result as normal/abnormal . NRBC/100 WBC (test code See_Comment [Au tomated message] = 2045826295) The system [employer] generated this result transmitted ref erence range: 0.0 - 10 .0 /100 WBCs. The reference range was not used to int erpret this result as normal/abnormal . IPF % (test code = 5.9 % 1.3-7.7 Platelet count 8215670741) measured by fluorescence me thod. Lab Interpretation Abnormal (test code = 93617-2) [facility] WITHOUT [id number] 08:34:10 Test Item Value Reference Range Interpretation Comments WBC (test code = See_Comment [Automated message] 6690-2) The system [employer] Remember generated this result transmitted ref erence range: 4.30 - 1 1.10 10*3/?L. The reference range was not used to int erpret this result as normal/abnormal . RBC (test code = 789-8) See_Comment L [Au tomated message] The system People [employer] Remember generated this result transmitted ref erence range: 3.93 - 5 .25 10*6/?L. The reference range was not used to int erpret this result as normal/abnormal . HGB (test code = 718-7) 6.1 g/dL 11.6-15.0 L HCT (test code = 18.5 % 35.7-45.2 L 4544-3) MCH (test code = 785-6) 29.3 pg 25.9-32.8 MCV (test code = 787-2) 88.9 fL 80.6-95.5 MCHC (test code = 33.0 g/dL 31.6-35.1 786-4) PLT (test code = 777-3) See_Comment L [Au tomated message] The system People [employer] Remember generated this result transmitted ref erence range: 166 - 35 8 10*3/?L. The reference range was not used to int erpret this result as normal/abnormal . MPV (test code = 11.4 fL 9.5-12.9 36182-4) RDW-CV (test code = 14.8 % 12.0-15.5 788-0) RDW-SD (test code = 47.3 fL 39.0-49.9 73902-7) NRBC x10^3 (test code = <0.01 See_Comment [Au tomated message] 9564533235) The system People [employer] Remember generated this result transmitted ref erence range: 10*3/?L. The reference range was not used to int erpret this result as normal/abnormal . NRBC/100 WBC (test code See_Comment [Au tomated message] = 6381294194) The system [employer] generated this result transmitted ref erence range: 0.0 - 10 .0 /100 WBCs. The reference range was not used to int erpret this result as normal/abnormal . IPF % (test code = 5.9 % 1.3-7.7 Platelet count 9390956361) measured by fluorescence me thod. Lab Interpretation Abnormal (test code = 56941-4) [facility] Cry[facility]itate (in units)~2021-10-08 07:24:24 Test Item Value Reference Range Interpretation Comments Unit Blood Type (test A code = 4410) ISBT Blood Type Code A000 (test code = 018700) Unit Number (test [id number] code = 4411) Blood Expiration Date & Time (test code = 981579) Status Information Issued (test code = 4412) Product Cryoprecipitate Identification (test code = 4413) Product Code (test K2024Z70 Performed at [facility] code = 4414) Laboratory Services - [facility] Blood [address] [address]Asxh Free: [phone] A No. [id number] [facility] Cryoprecipitate (in units)~2021-10-08 07:24:24 Test Item Value Reference Range Interpretation Comments Unit Blood Type (test A code = 4410) ISBT Blood Type Code A000 (test code = 639802) Unit Number (test [id number] code = 4411) Blood Expiration Date & Time (test code = 227128) Status Information Issued (test code = 4412) Product Cryoprecipitate Identification (test code = 4413) Product Code (test C9229Z55 Performed at [facility] code = 4414) Laboratory Services - [facility] Blood [address] [address]Wnuh Free: [phone] A No. [id number] [facility] Cryoprecipitate (in units)~2021-10-08 07:24:24 Test Item Value Reference Range Interpretation Comments Unit Blood Type (test A code = 4410) ISBT Blood Type Code A000 (test code = 244990) Unit Number (test [id number] code = 4411) Blood Expiration Date & Time (test code = 715573) Status Information Issued (test code = 4412) Product Cryoprecipitate Identification (test code = 4413) Product Code (test K5360Q41 Performed at [facility] code = 4414) Laboratory Services - [facility] Blood [address] [address]Aduq Free: [phone] A No. [id number] [facility] (NA, K, CL, CO2, GLUCOSE, BUN, CREATININE, CA)2021-10-08 07:14:23 Test Item Value Reference Range Interpretation Comments NA (test code = 134 mmol/L 135-145 L 8575042980) K (test code = 4.6 mmol/L 3.5-5.0 9443765111) CL (test code = 109 mmol/L 98-108 H 2836250657) CO2 TOTAL (test code = 21 mmol/L 23-31 L 9037892572) AGAP (test code = 2-16 9103987237) BUN (test code = 9 mg/dL 7-23 0346542595) GLUCOSE (test code = 206 mg/dL 70-110 H 8864529413) CREATININE (test code = 0.61 mg/dL 0.50-1.04 9126271382) CALCIUM (test code = 7.5 mg/dL 8.6-10.6 L 4478031948) eGFR (test code = mL/min/1.73m2 8990929809) MICKY (test code = MICKY) Association of [...] tests). Lab Interpretation Abnormal (test code = 69290-3) [facility] METABOLIC PANEL (NA, K, CL, CO2, GLUCOSE, BUN, CREATININE, CA)2021-10-08 07:14:23 Test Item Value Reference Range Interpretation Comments NA (test code = 134 mmol/L 135-145 L 1623918277) K (test code = 4.6 mmol/L 3.5-5.0 3153800670) CL (test code = 109 mmol/L 98-108 H 5322291766) CO2 TOTAL (test code = 21 mmol/L 23-31 L 9092934641) AGAP (test code = 2-16 2415291951) BUN (test code = 9 mg/dL 7-23 8316814079) GLUCOSE (test code = 206 mg/dL 70-110 H 2266241162) CREATININE (test code = 0.61 mg/dL 0.50-1.04 9967925440) CALCIUM (test code = 7.5 mg/dL 8.6-10.6 L 7980908667) eGFR (test code = mL/min/1.73m2 5154866620) MICKY (test code = MICKY) Association of [...] tests). Lab Interpretation Abnormal (test code = 44503-9) [facility] METABOLIC PANEL (NA, K, CL, CO2, GLUCOSE, BUN, CREATININE, CA)2021-10-08 07:14:23 Test Item Value Reference Range Interpretation Comments NA (test code = 134 mmol/L 135-145 L 8854586548) K (test code = 4.6 mmol/L 3.5-5.0 3319144315) CL (test code = 109 mmol/L 98-108 H 0082788815) CO2 TOTAL (test code = 21 mmol/L 23-31 L 2596697710) AGAP (test code = 2-16 0039175715) BUN (test code = 9 mg/dL 7-23 7913445158) GLUCOSE (test code = 206 mg/dL 70-110 H 9265081559) CREATININE (test code = 0.61 mg/dL 0.50-1.04 6220895593) CALCIUM (test code = 7.5 mg/dL 8.6-10.6 L 5842159844) eGFR (test code = mL/min/1.73m2 4766298304) MICKY (test code = MICKY) Association of [...] tests). Lab Interpretation Abnormal (test code = 11520-7) [facility]2022-06-24 06:46:57 Test Item Value Reference Range Interpretation Comments Fibrinogen (test code = 7923720084) 174 mg/dL 167-453 Lab Interpretation (test code = Normal 55137-5) [facility]2022-06-24 06:46:57 Test Item Value Reference Range Interpretation Comments Fibrinogen (test code = 7804007644) 174 mg/dL 167-453 Lab Interpretation (test code = Normal 20537-7) [facility]2022-06-24 06:46:57 Test Item Value Reference Range Interpretation Comments Fibrinogen (test code = 7583852052) 174 mg/dL 167-453 Lab Interpretation (test code = Normal 48816-9) [facility]2022-06-24 06:45:07 Test Item Value Reference Range Interpretation Comments Fibrinogen (test code = 6474424206) 196 mg/dL 167-453 Lab Interpretation (test code = Normal 37699-9) [facility]2022-06-24 06:45:07 Test Item Value Reference Range Interpretation Comments Fibrinogen (test code = 3239729189) 196 mg/dL 167-453 Lab Interpretation (test code = Normal 85207-7) [facility]2022-06-24 06:45:07 Test Item Value Reference Range Interpretation Comments Fibrinogen (test code = 4209960685) 196 mg/dL 167-453 Lab Interpretation (test code = Normal 06596-6) [facility] 06:44:36 Test Item Value Reference Range Interpretation Comments Unit Blood Type (test A Pos code = 4410) ISBT Blood Type Code (test code = 222644) Unit Number (test code [id number] = 4411) Blood Expiration Date & Time (test code = 464062) Status Information Issued (test code = 4412) Product Identification Platelets (test code = 4413) Product Code (test [id number] Performed at [facility] code = 4414) Laboratory Services - [facility] Blood [address] [address]Ohsw Free: [phone] A No. [id number] [facility]2021-10-08 06:44:36 Test Item Value Reference Range Interpretation Comments Unit Blood Type (test A Pos code = 4410) ISBT Blood Type Code (test code = 217244) Unit Number (test code [id number] = 4411) Blood Expiration Date & Time (test code = 398155) Status Information Issued (test code = 4412) Product Identification Platelets (test code = 4413) Product Code (test [id number] Performed at [facility] code = 4414) Laboratory Services - [facility] Blood [address] [address]Lzab Free: [phone] A No. [id number] [facility]2021-10-08 06:44:36 Test Item Value Reference Range Interpretation Comments Unit Blood Type (test A Pos code = 4410) ISBT Blood Type Code (test code = 454165) Unit Number (test code [id number] = 4411) Blood Expiration Date & Time (test code = 619403) Status Information Issued (test code = 4412) Product Identification Platelets (test code = 4413) Product Code (test [id number] Performed at [facility] code = 4414) Laboratory Services - [facility] Blood [address] [address]Eyla Free: [phone] A No. [id number] [facility] [id number] 06:44:01 Test Item Value Reference Range Interpretation Comments APTT Patient (test code = See_Comment [ Automated message] 3173-2) The system [employer] Remember generated this result transmitted ref erence range: 26 - 36 Seconds. The re ference range was not u sed to interpret this result as normal/abnor mal. Lab Interpretation (test Normal code = 60624-6) [facility] Time / [id number] 06:44:01 Test Item Value Reference Range Interpretation Comments PROTIME PATIENT (test See_Comment H [Auto mated message] code = 5964-2) The system [employer] generated this result transmitted ref erence range: 10.1 - 1 2.6 Seconds. The reference range was not used to int erpret this result as normal/abnormal . INR (test code = 6301-6) Nor mal INR <1.1; Warfarin Therap eutic range 2.0 to 3. 0 or 2.5 to 3.5, dep ending upon the indica tions. Lab Interpretation (test Abnormal code = 20896-0) [facility] [id number] 06:44:01 Test Item Value Reference Range Interpretation Comments APTT Patient (test code = See_Comment [ Automated message] 3173-2) The system [employer] generated this result transmitted ref erence range: 26 - 36 Seconds. The re ference range was not u sed to interpret this result as normal/abnor mal. Lab Interpretation (test Normal code = 15880-2) [facility] / [id number] 06:44:01 Test Item Value Reference Range Interpretation Comments PROTIME PATIENT (test See_Comment H [Auto mated message] code = 5964-2) The system [employer] generated this result transmitted ref erence range: 10.1 - 1 2.6 Seconds. The reference range was not used to int erpret this result as normal/abnormal . INR (test code = 6301-6) Nor mal INR <1.1; Warfarin Therap eutic range 2.0 to 3. 0 or 2.5 to 3.5, dep ending upon the indica tions. Lab Interpretation (test Abnormal code = 98655-7) [facility] [id number] 06:44:01 Test Item Value Reference Range Interpretation Comments APTT Patient (test code = See_Comment [ Automated message] 3173-2) The system [employer] Remember generated this result transmitted ref erence range: 26 - 36 Seconds. The re ference range was not u sed to interpret this result as normal/abnor mal. Lab Interpretation (test Normal code = 23064-5) [facility] / [id number] 06:44:01 Test Item Value Reference Range Interpretation Comments PROTIME PATIENT (test See_Comment H [Auto mated message] code = 5964-2) The system wh ich generated this result transmitted ref erence range: 10.1 - 1 2.6 Seconds. The reference range was not used to int erpret this result as normal/abnormal . INR (test code = 6301-6) Nor mal INR <1.1; Warfarin Therap eutic range 2.0 to 3. 0 or 2.5 to 3.5, dep ending upon the indica tions. Lab Interpretation (test Abnormal code = 01445-1) [facility] WITH [id number] 06:33:16 Test Item Value Reference Range Interpretation Comments WBC (test code = See_Comment H [Automated 6690-2) message] The system which generated this result transmit ramana reference range : 4.30 - 11.10 10*3/?L. The reference range was not used to interpret this result as normal/abnormal . RBC (test code = See_Comment L [Automated 789-8) message] The system which generated this result transmit ramana reference range : 3.93 - 5.25 10*6/?L. The reference range was not used to interpret this result as normal/abnormal . HGB (test code = 6.1 g/dL 11.6-15.0 L 718-7) HCT (test code = 19.2 % 35.7-45.2 L 4544-3) MCV (test code = 90.1 fL 80.6-95.5 787-2) MCH (test code = 28.6 pg 25.9-32.8 785-6) MCHC (test code = 31.8 g/dL 31.6-35.1 786-4) RDW-SD (test code = 51.9 fL 39.0-49.9 H 37837-6) RDW-CV (test code = 16.2 % 12.0-15.5 H 788-0) PLT (test code = See_Comment [Automated 777-3) message] The system which generated this result transmit ramana reference range : 166 - 358 10*3/ ?L. The reference range was not u sed to interpret th is result as normal/abnormal . MPV (test code = 11.3 fL 9.5-12.9 79253-2) NRBC/100 WBC (test See_Comment [Automat ed code = 2090909321) message] The system which generated this result transmit ramana reference range : 0.0 - 10.0 /100 WBCs. The reference range was not used to interpret this result as normal/abnormal . NRBC x10^3 (test code <0.01 See_Comment [Auto mated = 9597525143) message] The system which generated this result transmit ramana reference range : 10*3/?L. The reference range was not used to interpret this result as normal/abnormal . GRAN MAT (NEUT) % 86.0 % (test code = 770-8) IMM GRAN % (test code 0.80 % = 5415187870) LYMPH % (test code = 3.8 % 736-9) MONO % (test code = 9.3 % 5905-5) EOS % (test code = 0.0 % 713-8) BASO % (test code = 0.1 % 706-2) GRAN MAT x10^3(ANC) 11.38 10*3/uL 1.88-7.09 H (test code = 9016335517) IMM GRAN x10^3 (test 0.10 10*3/uL 0.00-0.06 H code = 1655974621) LYMPH x10^3 (test code 0.50 10*3/uL 1.32-3.29 L = 731-0) MONO x10^3 (test code 1.23 10*3/uL 0.33-0.92 H = 742-7) EOS x10^3 (test code = <0.03 0.03-0.39 L 711-2) BASO x10^3 (test code <0.03 0.01-0.07 = 704-7) Lab Interpretation Abnormal (test code = 52957-5) [facility] WITH [id number] 06:33:16 Test Item Value Reference Range Interpretation Comments WBC (test code = See_Comment H [Automated 6690-2) message] The system which generated this result transmit ramana reference range : 4.30 - 11.10 10*3/?L. The reference range was not used to interpret this result as normal/abnormal . RBC (test code = See_Comment L [Automated 789-8) message] The system which generated this result transmit ramana reference range : 3.93 - 5.25 10*6/?L. The reference range was not used to interpret this result as normal/abnormal . HGB (test code = 6.1 g/dL 11.6-15.0 L 718-7) HCT (test code = 19.2 % 35.7-45.2 L 4544-3) MCV (test code = 90.1 fL 80.6-95.5 787-2) MCH (test code = 28.6 pg 25.9-32.8 785-6) MCHC (test code = 31.8 g/dL 31.6-35.1 786-4) RDW-SD (test code = 51.9 fL 39.0-49.9 H 71381-0) RDW-CV (test code = 16.2 % 12.0-15.5 H 788-0) PLT (test code = See_Comment [Automated 777-3) message] The system which generated this result transmit ramana reference range : 166 - 358 10*3/ ?L. The reference range was not u sed to interpret th is result as normal/abnormal . MPV (test code = 11.3 fL 9.5-12.9 43712-4) NRBC/100 WBC (test See_Comment [Automat ed code = 5395634021) message] The system which generated this result transmit ramana reference range : 0.0 - 10.0 /100 WBCs. The reference range was not used to interpret this result as normal/abnormal . NRBC x10^3 (test code <0.01 See_Comment [Auto mated = 1021104452) message] The system which generated this result transmit ramana reference range : 10*3/?L. The reference range was not used to interpret this result as normal/abnormal . GRAN MAT (NEUT) % 86.0 % (test code = 770-8) IMM GRAN % (test code 0.80 % = 1443675699) LYMPH % (test code = 3.8 % 736-9) MONO % (test code = 9.3 % 5905-5) EOS % (test code = 0.0 % 713-8) BASO % (test code = 0.1 % 706-2) GRAN MAT x10^3(ANC) 11.38 10*3/uL 1.88-7.09 H (test code = 7142051200) IMM GRAN x10^3 (test 0.10 10*3/uL 0.00-0.06 H code = 1994582439) LYMPH x10^3 (test code 0.50 10*3/uL 1.32-3.29 L = 731-0) MONO x10^3 (test code 1.23 10*3/uL 0.33-0.92 H = 742-7) EOS x10^3 (test code = <0.03 0.03-0.39 L 711-2) BASO x10^3 (test code <0.03 0.01-0.07 = 704-7) Lab Interpretation Abnormal (test code = 55798-8) [facility] WITH [id number] 06:33:16 Test Item Value Reference Range Interpretation Comments WBC (test code = See_Comment H [Automated 6690-2) message] The system which generated this result transmit ramana reference range : 4.30 - 11.10 10*3/?L. The reference range was not used to interpret this result as normal/abnormal . RBC (test code = See_Comment L [Automated 789-8) message] The system which generated this result transmit ramana reference range : 3.93 - 5.25 10*6/?L. The reference range was not used to interpret this result as normal/abnormal . HGB (test code = 6.1 g/dL 11.6-15.0 L 718-7) HCT (test code = 19.2 % 35.7-45.2 L 4544-3) MCV (test code = 90.1 fL 80.6-95.5 787-2) MCH (test code = 28.6 pg 25.9-32.8 785-6) MCHC (test code = 31.8 g/dL 31.6-35.1 786-4) RDW-SD (test code = 51.9 fL 39.0-49.9 H 19454-2) RDW-CV (test code = 16.2 % 12.0-15.5 H 788-0) PLT (test code = See_Comment [Automated 777-3) message] The system which generated this result transmit ramana reference range : 166 - 358 10*3/ ?L. The reference range was not u sed to interpret th is result as normal/abnormal . MPV (test code = 11.3 fL 9.5-12.9 60683-2) NRBC/100 WBC (test See_Comment [Automat ed code = 6950745435) message] The system which generated this result transmit ramana reference range : 0.0 - 10.0 /100 WBCs. The reference range was not used to interpret this result as normal/abnormal . NRBC x10^3 (test code <0.01 See_Comment [Auto mated = 2803144640) message] The system which generated this result transmit ramana reference range : 10*3/?L. The reference range was not used to interpret this result as normal/abnormal . GRAN MAT (NEUT) % 86.0 % (test code = 770-8) IMM GRAN % (test code 0.80 % = 8930371216) LYMPH % (test code = 3.8 % 736-9) MONO % (test code = 9.3 % 5905-5) EOS % (test code = 0.0 % 713-8) BASO % (test code = 0.1 % 706-2) GRAN MAT x10^3(ANC) 11.38 10*3/uL 1.88-7.09 H (test code = 4387717781) IMM GRAN x10^3 (test 0.10 10*3/uL 0.00-0.06 H code = 5895690041) LYMPH x10^3 (test code 0.50 10*3/uL 1.32-3.29 L = 731-0) MONO x10^3 (test code 1.23 10*3/uL 0.33-0.92 H = 742-7) EOS x10^3 (test code = <0.03 0.03-0.39 L 711-2) BASO x10^3 (test code <0.03 0.01-0.07 = 704-7) Lab Interpretation Abnormal (test code = 17422-8) [facility] [id number] 06:25:43 Test Item Value Reference Range Interpretation Comments PH (test code = 7.32-7.42 L 6495838878) PCO2 SHAY (test code = See_Comment [Auto mated 0294265587) message] The sy stem which generated this result transmitted reference range : 41 - 51 mmHg. The reference range was not used to interpret this result as normal/abnormal . PO2 SHAY (test code = See_Comment L [Autom ated 6881260131) message] The sy stem which generated this result transmitted reference range : 25 - 40 mmHg. The reference range was not used to interpret this result as normal/abnormal . HCO3 SHAY (test code = See_Comment L [Auto mated 5980061472) message] The sy stem which generated this result transmitted reference range : 24 - 28 mEq/L. The reference range was not used to interpret this result as normal/abnormal . AC VBE(BEAKER) (test mEq/L code = 4262432003) THB SHAY (test code = 6.1 g/dL 12.0-16.0 LL 0325624902) %O2HB SHAY (test code = 26.6 % 52.0-63.0 L 8240628098) %COHB SHAY (test code = 1.0 % 0.0-1.5 2261153134) %METHB SHAY (test code = 0.9 % 0.4-1.5 3130977564) VOL%O2 SHAY (test code = 2.3 % 6.0-12.0 L 1206525218) NA (test code = 130 mmol/L 135-145 L 4693015732) K+ (test code = 4.3 mmol/L 3.5-5.0 4153813673) AC CA IONZ (test code = 4.60 mg/dL 4.50-5.30 4962257010) GLUCOSE (test code = 239 mg/dL 70-110 H 7489242748) LACTIC ACID (test code 3.16 mmol/L 0.50-2.20 H = 7566050839) Lab Interpretation Abnormal (test code = 27591-8) [facility] PANEL 21 + LACTIC [id number] 06:25:43 Test Item Value Reference Range Interpretation Comments PH (test code = 7.32-7.42 L 0494909536) PCO2 SHAY (test code = See_Comment [Auto mated 5886963603) message] The sy stem which generated this result transmitted reference range : 41 - 51 mmHg. The reference range was not used to interpret this result as normal/abnormal . PO2 SHAY (test code = See_Comment L [Autom ated 6456441813) message] The sy stem which generated this result transmitted reference range : 25 - 40 mmHg. The reference range was not used to interpret this result as normal/abnormal . HCO3 SHAY (test code = See_Comment L [Auto mated 0067181693) message] The sy stem which generated this result transmitted reference range : 24 - 28 mEq/L. The reference range was not used to interpret this result as normal/abnormal . AC VBE(BEAKER) (test mEq/L code = 2881652786) THB SHAY (test code = 6.1 g/dL 12.0-16.0 LL 8896304777) %O2HB SHAY (test code = 26.6 % 52.0-63.0 L 1233683544) %COHB SHAY (test code = 1.0 % 0.0-1.5 3621491000) %METHB SHAY (test code = 0.9 % 0.4-1.5 1868381267) VOL%O2 SHAY (test code = 2.3 % 6.0-12.0 L 4892887166) NA (test code = 130 mmol/L 135-145 L 3146445600) K+ (test code = 4.3 mmol/L 3.5-5.0 7412087075) AC CA IONZ (test code = 4.60 mg/dL 4.50-5.30 3813277207) GLUCOSE (test code = 239 mg/dL 70-110 H 4046714305) LACTIC ACID (test code 3.16 mmol/L 0.50-2.20 H = 9299386519) Lab Interpretation Abnormal (test code = 77219-6) [facility] [id number] 06:25:43 Test Item Value Reference Range Interpretation Comments PH (test code = 7.32-7.42 L 7779534546) PCO2 SHAY (test code = See_Comment [Auto mated 7120103488) message] The sy stem which generated this result transmitted reference range : 41 - 51 mmHg. The reference range was not used to interpret this result as normal/abnormal . PO2 SHAY (test code = See_Comment L [Autom ated 6711302391) message] The sy stem which generated this result transmitted reference range : 25 - 40 mmHg. The reference range was not used to interpret this result as normal/abnormal . HCO3 SHAY (test code = See_Comment L [Auto mated 4185888447) message] The sy stem which generated this result transmitted reference range : 24 - 28 mEq/L. The reference range was not used to interpret this result as normal/abnormal . AC VBE(BEAKER) (test mEq/L code = 7454952438) THB SHAY (test code = 6.1 g/dL 12.0-16.0 LL 2042722621) %O2HB SHAY (test code = 26.6 % 52.0-63.0 L 2552814652) %COHB SHAY (test code = 1.0 % 0.0-1.5 5132116485) %METHB SHAY (test code = 0.9 % 0.4-1.5 2562436093) VOL%O2 SHAY (test code = 2.3 % 6.0-12.0 L 9974819562) NA (test code = 130 mmol/L 135-145 L 8478478197) K+ (test code = 4.3 mmol/L 3.5-5.0 2659300126) AC CA IONZ (test code = 4.60 mg/dL 4.50-5.30 6409981647) GLUCOSE (test code = 239 mg/dL 70-110 H 7426992066) LACTIC ACID (test code 3.16 mmol/L 0.50-2.20 H = 5916789603) Lab Interpretation Abnormal (test code = 83288-9) [facility] METABOLIC PANEL (NA, K, CL, CO2, GLUCOSE, BUN, CREATININE, CA)2021-10-08 05:38:11 Test Item Value Reference Range Interpretation Comments NA (test code = 132 mmol/L 135-145 L 4306348369) K (test code = 4.7 mmol/L 3.5-5.0 2858592944) CL (test code = 107 mmol/L 98-108 6725946898) CO2 TOTAL (test code = 20 mmol/L 23-31 L 4184707736) AGAP (test code = 2-16 8541508455) BUN (test code = 8 mg/dL 7-23 2392299911) GLUCOSE (test code = 322 mg/dL 70-110 H 8445605695) CREATININE (test code = 0.65 mg/dL 0.50-1.04 4465899904) CALCIUM (test code = 7.7 mg/dL 8.6-10.6 L 1025833633) eGFR (test code = mL/min/1.73m2 4322220113) MICKY (test code = MICKY) Association of [...] tests). Lab Interpretation Abnormal (test code = 77992-1) [facility] Test Item Value Reference Range Interpretation Comments MAGNESIUM (test code = 1723072594) 1.6 mg/dL 1.7-2.4 L Lab Interpretation (test code = Abnormal 21312-4) [facility] METABOLIC PANEL (NA, K, CL, CO2, GLUCOSE, BUN, CREATININE, CA)2021-10-08 05:38:11 Test Item Value Reference Range Interpretation Comments NA (test code = 132 mmol/L 135-145 L 5315149319) K (test code = 4.7 mmol/L 3.5-5.0 4583850296) CL (test code = 107 mmol/L 98-108 0792069182) CO2 TOTAL (test code = 20 mmol/L 23-31 L 8233407927) AGAP (test code = 2-16 9432030828) BUN (test code = 8 mg/dL 7-23 0829430925) GLUCOSE (test code = 322 mg/dL 70-110 H 3756952522) CREATININE (test code = 0.65 mg/dL 0.50-1.04 6332738379) CALCIUM (test code = 7.7 mg/dL 8.6-10.6 L 2930783235) eGFR (test code = mL/min/1.73m2 4346955877) MICKY (test code = MICKY) Association of [...] tests). Lab Interpretation Abnormal (test code = 02100-4) [facility] 05:38:11 Test Item Value Reference Range Interpretation Comments MAGNESIUM (test code = 9057642271) 1.6 mg/dL 1.7-2.4 L Lab Interpretation (test code = Abnormal 63216-7) [facility] (NA, K, CL, CO2, GLUCOSE, BUN, CREATININE, CA)2021-10-08 05:38:11 Test Item Value Reference Range Interpretation Comments NA (test code = 132 mmol/L 135-145 L 9526626080) K (test code = 4.7 mmol/L 3.5-5.0 1042689538) CL (test code = 107 mmol/L 98-108 9405211236) CO2 TOTAL (test code = 20 mmol/L 23-31 L 1397759582) AGAP (test code = 2-16 4804781367) BUN (test code = 8 mg/dL 7-23 8399259637) GLUCOSE (test code = 322 mg/dL 70-110 H 3893270785) CREATININE (test code = 0.65 mg/dL 0.50-1.04 8614854128) CALCIUM (test code = 7.7 mg/dL 8.6-10.6 L 0822307633) eGFR (test code = mL/min/1.73m2 3646464234) MICKY (test code = MICKY) Association of [...] tests). Lab Interpretation Abnormal (test code = 17752-6) [facility] 05:38:11 Test Item Value Reference Range Interpretation Comments MAGNESIUM (test code = 4994594204) 1.6 mg/dL 1.7-2.4 L Lab Interpretation (test code = Abnormal 60275-7) [facility] WITH [id number] 04:49:24 Test Item Value Reference Range Interpretation Comments WBC (test code = See_Comment [Automated 7690-2) message] The sy stem which generated this result transmitted reference range : 4.30 - 11.10 10*3/?L. The reference range was not used to interpret this result as normal/abnormal . RBC (test code = See_Comment L [Automated 702-8) message] The sy stem which generated this result transmitted reference range : 3.93 - 5.25 10*6/?L. The reference range was not used to interpret this result as normal/abnormal . HGB (test code = 4.7 g/dL 11.6-15.0 LL 718-7) HCT (test code = 15.4 % 35.7-45.2 L 4544-3) MCV (test code = 93.9 fL 80.6-95.5 787-2) MCH (test code = 28.7 pg 25.9-32.8 785-6) MCHC (test code = 30.5 g/dL 31.6-35.1 L 786-4) RDW-SD (test code = 59.6 fL 39.0-49.9 H 95741-3) RDW-CV (test code = 17.4 % 12.0-15.5 H 788-0) PLT (test code = See_Comment [Automated 777-3) message] The sy stem which generated this result transmitted reference range : 166 - 358 10*3/ ?L. The reference r susan was not used to interpret this result as normal/abnormal . MPV (test code = 11.5 fL 9.5-12.9 83524-0) NRBC/100 WBC (test See_Comment [Automat ed code = 3185139393) message] The system which generated this result transmitted reference range : 0.0 - 10.0 /100 WBCs. The refer ence range was not u sed to interpret th is result as normal/abnormal . NRBC x10^3 (test code <0.01 See_Comment [Auto mated = 0087576937) message] The s ystem which generated this result transmitted reference range : 10*3/?L. The reference range was not used to interpret this result as normal/abnormal . GRAN MAT (NEUT) % 90.2 % (test code = 770-8) IMM GRAN % (test code 0.60 % = [id number]) LYMPH % (test code = 3.9 % 736-9) MONO % (test code = 5.2 % 5905-5) EOS % (test code = 0.0 % 713-8) BASO % (test code = 0.1 % 706-2) GRAN MAT x10^3(ANC) 8.42 10*3/uL 1.88-7.09 H (test code = [id number]) IMM GRAN x10^3 (test 0.06 10*3/uL 0.00-0.06 code = 3825700837) LYMPH x10^3 (test code 0.36 10*3/uL 1.32-3.29 L = 731-0) MONO x10^3 (test code 0.49 10*3/uL 0.33-0.92 = 742-7) EOS x10^3 (test code = <0.03 0.03-0.39 L 711-2) BASO x10^3 (test code <0.03 0.01-0.07 = 704-7) Lab Interpretation Abnormal (test code = 01996-3) [facility] WITH [id number] 04:49:24 Test Item Value Reference Range Interpretation Comments [...] as normal/abnormal . HGB (test code = 4.7 g/dL 11.6-15.0 LL 718-7) HCT (test code = 15.4 % 35.7-45.2 L 4544-3) MCV (test code = 93.9 fL 80.6-95.5 787-2) MCH (test code = 28.7 pg 25.9-32.8 785-6) MCHC (test code = 30.5 g/dL 31.6-35.1 L 786-4) RDW-SD (test code = 59.6 fL 39.0-49.9 H 89934-8) RDW-CV (test code = 17.4 % 12.0-15.5 H 788-0) PLT (test code = See_Comment [Automated 777-3) message] The sy stem which generated this result transmitted reference range : 166 - 358 10*3/ ?L. The reference r susan was not used to interpret this result as normal/abnormal . MPV (test code = 11.5 fL 9.5-12.9 25777-6) NRBC/100 WBC (test See_Comment [Automat ed code = 4613368530) message] The system which generated this result transmitted reference range : 0.0 - 10.0 /100 WBCs. The refer ence range was not u sed to interpret th is result as normal/abnormal . NRBC x10^3 (test code <0.01 See_Comment [Auto mated = 4104778322) message] The s ystem which generated this result transmitted reference range : 10*3/?L. The reference range was not used to interpret this result as normal/abnormal . GRAN MAT (NEUT) % 90.2 % (test code = 770-8) IMM GRAN % (test code 0.60 % = 5355315203) LYMPH % (test code = 3.9 % 736-9) MONO % (test code = 5.2 % 5905-5) EOS % (test code = 0.0 % 713-8) BASO % (test code = 0.1 % 706-2) GRAN MAT x10^3(ANC) 8.42 10*3/uL 1.88-7.09 H (test code = 1076352542) IMM GRAN x10^3 (test 0.06 10*3/uL 0.00-0.06 code = 4495629126) LYMPH x10^3 (test code 0.36 10*3/uL 1.32-3.29 L = 731-0) MONO x10^3 (test code 0.49 10*3/uL 0.33-0.92 = 742-7) EOS x10^3 (test code = <0.03 0.03-0.39 L 711-2) BASO x10^3 (test code <0.03 0.01-0.07 = 704-7) Lab Interpretation Abnormal (test code = 50043-3) [facility] WITH [id number] 04:49:24 Test Item Value Reference Range Interpretation Comments WBC (test code = See_Comment [Automated 3190-2) message] The sy stem which generated this result transmitted reference range : 4.30 - 11.10 10*3/?L. The reference range was not used to interpret this result as normal/abnormal . RBC (test code = See_Comment L [Automated 829-8) message] The sy stem which generated this result transmitted reference range : 3.93 - 5.25 10*6/?L. The reference range was not used to interpret this result as normal/abnormal . HGB (test code = 4.7 g/dL 11.6-15.0 LL 718-7) HCT (test code = 15.4 % 35.7-45.2 L 4544-3) MCV (test code = 93.9 fL 80.6-95.5 787-2) MCH (test code = 28.7 pg 25.9-32.8 785-6) MCHC (test code = 30.5 g/dL 31.6-35.1 L 786-4) RDW-SD (test code = 59.6 fL 39.0-49.9 H 16107-3) RDW-CV (test code = 17.4 % 12.0-15.5 H 788-0) PLT (test code = See_Comment [Automated 777-3) message] The sy stem which generated this result transmitted reference range : 166 - 358 10*3/ ?L. The reference r susan was not used to interpret this result as normal/abnormal . MPV (test code = 11.5 fL 9.5-12.9 31936-6) NRBC/100 WBC (test See_Comment [Automat ed code = 0686797403) message] The system which generated this result transmitted reference range : 0.0 - 10.0 /100 WBCs. The refer ence range was not u sed to interpret th is result as normal/abnormal . NRBC x10^3 (test code <0.01 See_Comment [Auto mated = 8889213457) message] The s ystem which generated this result transmitted reference range : 10*3/?L. The reference range was not used to interpret this result as normal/abnormal . GRAN MAT (NEUT) % 90.2 % (test code = 770-8) IMM GRAN % (test code 0.60 % = 6978364076) LYMPH % (test code = 3.9 % 736-9) MONO % (test code = 5.2 % 5905-5) EOS % (test code = 0.0 % 713-8) BASO % (test code = 0.1 % 706-2) GRAN MAT x10^3(ANC) 8.42 10*3/uL 1.88-7.09 H (test code = 3498314610) IMM GRAN x10^3 (test 0.06 10*3/uL 0.00-0.06 code = 3922240821) LYMPH x10^3 (test code 0.36 10*3/uL 1.32-3.29 L = 731-0) MONO x10^3 (test code 0.49 10*3/uL 0.33-0.92 = 742-7) EOS x10^3 (test code = <0.03 0.03-0.39 L 711-2) BASO x10^3 (test code <0.03 0.01-0.07 = 704-7) Lab Interpretation Abnormal (test code = 93954-5) [facility] Packed RBC (in units), 1 Units 2021-10-08 04:27:22 Test Item Value Reference Range Interpretation Comments Cross Match Result Compatible (test code = 4409) ISBT Blood Type Code (test code = 252177) Unit Blood Type (test A Pos code = 4410) Unit Number (test [id number] code = 4411) Blood Expiration Date & Time (test code = 072837) Status Information Issued (test code = 4412) Product Red Blood Cells Identification (test code = 4413) Product Code (test L2150W47 Performed at [facility] code = 4414) Laboratory Services - [facility] Blood [address] [address]Gvxy Free: [phone] A No. [id number] [facility] Packed RBC (in units), 1 Units 2021-10-08 04:27:22 Test Item Value Reference Range Interpretation Comments Cross Match Result Compatible (test code = 4409) ISBT Blood Type Code (test code = 306822) Unit Blood Type (test A Pos code = 4410) Unit Number (test [id number] code = 4411) Blood Expiration Date & Time (test code = 460911) Status Information Issued (test code = 4412) Product Red Blood Cells Identification (test code = 4413) Product Code (test Y5577J59 Performed at [facility] code = 4414) Laboratory Services - [facility] Blood [address] [address]Jcur Free: [phone] A No. [id number] [facility] (in units), 1 Units 2021-10-08 04:27:22 Test Item Value Reference Range Interpretation Comments Cross Match Result Compatible (test code = 4409) ISBT Blood Type Code (test code = 062773) Unit Blood Type (test A Pos code = 4410) Unit Number (test [id number] code = 4411) Blood Expiration Date & Time (test code = 471753) Status Information Issued (test code = 4412) Product Red Blood Cells Identification (test code = 4413) Product Code (test P2531M75 Performed at [facility] code = 4414) Laboratory Services - [facility] Blood [address] [address]Rdhm Free: [phone] A No. [id number] [facility] GLUCOSE (AUTOMATED)2021-10-08 03:52:59 Test Item Value Reference Range Interpretation Comments POCT GLU (test code = 2218278865) 261 mg/dL 70-110 H Lab Interpretation (test code = Abnormal 59964-9) [facility] GLUCOSE (AUTOMATED)2021-10-08 03:52:59 Test Item Value Reference Range Interpretation Comments POCT GLU (test code = 0491919300) 261 mg/dL 70-110 H Lab Interpretation (test code = Abnormal 78781-9) [facility] GLUCOSE (AUTOMATED)2021-10-08 03:52:59 Test Item Value Reference Range Interpretation Comments POCT GLU (test code = 6470803217) 261 mg/dL 70-110 H Lab Interpretation (test code = Abnormal 52205-7) [facility] WITH [id number] 00:07:18 Test Item Value Reference Range Interpretation Comments [...] as normal/abnormal . HGB (test code = 6.3 g/dL 11.6-15.0 L 718-7) HCT (test code = 21.1 % 35.7-45.2 L 4544-3) MCV (test code = 94.2 fL 80.6-95.5 787-2) MCH (test code = 28.1 pg 25.9-32.8 785-6) MCHC (test code = 29.9 g/dL 31.6-35.1 L 786-4) RDW-SD (test code = 60.2 fL 39.0-49.9 H 47097-7) RDW-CV (test code = 17.7 % 12.0-15.5 H 788-0) PLT (test code = See_Comment [Automated 777-3) message] The sy stem which generated this result transmitted reference range : 166 - 358 10*3/ ?L. The reference r susan was not used to interpret this result as normal/abnormal . MPV (test code = 11.6 fL 9.5-12.9 31993-8) NRBC/100 WBC (test See_Comment [Automat ed code = 4419422395) message] The system which generated this result transmitted reference range : 0.0 - 10.0 /100 WBCs. The refer ence range was not u sed to interpret th is result as normal/abnormal . NRBC x10^3 (test code <0.01 See_Comment [Auto mated = 9174758626) message] The s ystem which generated this result transmitted reference range : 10*3/?L. The reference range was not used to interpret this result as normal/abnormal . GRAN MAT (NEUT) % 93.5 % (test code = 770-8) IMM GRAN % (test code 0.80 % = 5154732463) LYMPH % (test code = 3.4 % 736-9) MONO % (test code = 2.2 % 5905-5) EOS % (test code = 0.0 % 713-8) BASO % (test code = 0.1 % 706-2) GRAN MAT x10^3(ANC) 9.81 10*3/uL 1.88-7.09 H (test code = 4160466441) IMM GRAN x10^3 (test 0.08 10*3/uL 0.00-0.06 H code = 5439893232) LYMPH x10^3 (test code 0.36 10*3/uL 1.32-3.29 L = 731-0) MONO x10^3 (test code 0.23 10*3/uL 0.33-0.92 L = 742-7) EOS x10^3 (test code = <0.03 0.03-0.39 L 711-2) BASO x10^3 (test code <0.03 0.01-0.07 = 704-7) Lab Interpretation Abnormal (test code = 32722-7) [facility] WITH [id number] 00:07:18 Test Item Value Reference Range Interpretation Comments [...] as normal/abnormal . HGB (test code = 6.3 g/dL 11.6-15.0 L 718-7) HCT (test code = 21.1 % 35.7-45.2 L 4544-3) MCV (test code = 94.2 fL 80.6-95.5 787-2) MCH (test code = 28.1 pg 25.9-32.8 785-6) MCHC (test code = 29.9 g/dL 31.6-35.1 L 786-4) RDW-SD (test code = 60.2 fL 39.0-49.9 H 41729-6) RDW-CV (test code = 17.7 % 12.0-15.5 H 788-0) PLT (test code = See_Comment [Automated 777-3) message] The sy stem which generated this result transmitted reference range : 166 - 358 10*3/ ?L. The reference r susan was not used to interpret this result as normal/abnormal . MPV (test code = 11.6 fL 9.5-12.9 76455-0) NRBC/100 WBC (test See_Comment [Automat ed code = 0035917890) message] The system which generated this result transmitted reference range : 0.0 - 10.0 /100 WBCs. The refer ence range was not u sed to interpret th is result as normal/abnormal . NRBC x10^3 (test code <0.01 See_Comment [Auto mated = 4903405781) message] The s ystem which generated this result transmitted reference range : 10*3/?L. The reference range was not used to interpret this result as normal/abnormal . GRAN MAT (NEUT) % 93.5 % (test code = 770-8) IMM GRAN % (test code 0.80 % = 1609448651) LYMPH % (test code = 3.4 % 736-9) MONO % (test code = 2.2 % 5905-5) EOS % (test code = 0.0 % 713-8) BASO % (test code = 0.1 % 706-2) GRAN MAT x10^3(ANC) 9.81 10*3/uL 1.88-7.09 H (test code = 2728392006) IMM GRAN x10^3 (test 0.08 10*3/uL 0.00-0.06 H code = 2590630057) LYMPH x10^3 (test code 0.36 10*3/uL 1.32-3.29 L = 731-0) MONO x10^3 (test code 0.23 10*3/uL 0.33-0.92 L = 742-7) EOS x10^3 (test code = <0.03 0.03-0.39 L 711-2) BASO x10^3 (test code <0.03 0.01-0.07 = 704-7) Lab Interpretation Abnormal (test code = 48884-6) [facility] WITH [id number] 00:07:18 Test Item Value Reference Range Interpretation Comments [...] as normal/abnormal . HGB (test code = 6.3 g/dL 11.6-15.0 L 718-7) HCT (test code = 21.1 % 35.7-45.2 L 4544-3) MCV (test code = 94.2 fL 80.6-95.5 787-2) MCH (test code = 28.1 pg 25.9-32.8 785-6) MCHC (test code = 29.9 g/dL 31.6-35.1 L 786-4) RDW-SD (test code = 60.2 fL 39.0-49.9 H 46884-8) RDW-CV (test code = 17.7 % 12.0-15.5 H 788-0) PLT (test code = See_Comment [Automated 777-3) message] The sy stem which generated this result transmitted reference range : 166 - 358 10*3/ ?L. The reference r susan was not used to interpret this result as normal/abnormal . MPV (test code = 11.6 fL 9.5-12.9 10304-5) NRBC/100 WBC (test See_Comment [Automat ed code = 3543877614) message] The system which generated this result transmitted reference range : 0.0 - 10.0 /100 WBCs. The refer ence range was not u sed to interpret th is result as normal/abnormal . NRBC x10^3 (test code <0.01 See_Comment [Auto mated = 2305002822) message] The s ystem which generated this result transmitted reference range : 10*3/?L. The reference range was not used to interpret this result as normal/abnormal . GRAN MAT (NEUT) % 93.5 % (test code = 770-8) IMM GRAN % (test code 0.80 % = 3074405884) LYMPH % (test code = 3.4 % 736-9) MONO % (test code = 2.2 % 5905-5) EOS % (test code = 0.0 % 713-8) BASO % (test code = 0.1 % 706-2) GRAN MAT x10^3(ANC) 9.81 10*3/uL 1.88-7.09 H (test code = 9308148545) IMM GRAN x10^3 (test 0.08 10*3/uL 0.00-0.06 H code = 2577208035) LYMPH x10^3 (test code 0.36 10*3/uL 1.32-3.29 L = 731-0) MONO x10^3 (test code 0.23 10*3/uL 0.33-0.92 L = 742-7) EOS x10^3 (test code = <0.03 0.03-0.39 L 711-2) BASO x10^3 (test code <0.03 0.01-0.07 = 704-7) Lab Interpretation Abnormal (test code = 62502-0) [facility] Packed RBC (in units), 2 Units 2021-10-07 21:08:55 Test Item Value Reference Range Interpretation Comments Cross Match Result Compatible (test code = 4409) ISBT Blood Type Code (test code = 518964) Unit Blood Type (test A Pos code = 4410) Unit Number (test [id number] code = 4411) Blood Expiration Date & Time (test code = 452371) Status Information Issued (test code = 4412) Product Red Blood Cells Identification (test code = 4413) Product Code (test P1974U36 Performed at [facility] code = 4414) Laboratory Services - [facility] Blood [address] [place] [address] Free: [phone] A No. [id number] [facility] Packed RBC (in units), 2 Units 2021-10-07 21:08:55 Test Item Value Reference Range Interpretation Comments Cross Match Result Compatible (test code = 4409) ISBT Blood Type Code (test code = 524950) Unit Blood Type (test A Pos code = 4410) Unit Number (test [id number] code = 4411) Blood Expiration Date & Time (test code = 752050) Status Information Issued (test code = 4412) Product Red Blood Cells Identification (test code = 4413) Product Code (test A2444M11 Performed at [facility] code = 4414) Laboratory Services [facility] Blood [address] [place] [address]Nbgt Free: [phone] A No. [id number] [facility] P[facility] RBC (in units), 2 Units 2021-10-07 21:08:55 Test Item Value Reference Range Interpretation Comments Cross Match Result Compatible (test code = 4409) ISBT Blood Type Code (test code = 447111) Unit Blood Type (test A Pos code = 4410) Unit Number (test [id number] code = 4411) Blood Expiration Date & Time (test code = 966258) Status Information Issued (test code = 4412) Product Red Blood Cells Identification (test code = 4413) Product Code (test K3677T71 Performed at [facility] code = 4414) Laboratory Services [facility] Blood [address] [place] [address]Wmfh Free: [phone] A No. [id number] [facility]OLIC PANEL ([id number])2021-10-07 12:06:32 Test Item Value Reference Range Interpretation Comments NA (test code = 139 mmol/L 135-145 8363659169) K (test code = 4.1 mmol/L 3.5-5.0 7020865817) CL (test code = 110 mmol/L 98-108 H 4360825884) CO2 TOTAL (test code = 24 mmol/L 23-31 3196731704) AGAP (test code = 2-16 6509565421) BUN (test code = 6 mg/dL 7-23 L 3670895716) GLUCOSE (test code = 95 mg/dL 70-110 8509181961) CREATININE (test code = 0.48 mg/dL 0.50-1.04 L 7996974427) TOTAL BILI (test code = 0.3 mg/dL 0.1-1.2 2992446940) CALCIUM (test code = 8.2 mg/dL 8.6-10.6 L 3167123850) T PROTEIN (test code = 6.3 g/dL 6.3-8.2 2775720839) ALBUMIN (test code = 3.2 g/dL 3.5-5.0 L 5310043459) ALK PHOS (test code = 60 U/L 34-122 4803669585) ALTv (test code = 12 U/L 5-35 1742-6) AST(SGOT) (test code = 19 U/L 13-40 0729262040) eGFR (test code = mL/min/1.73m2 7849105623) MICKY (test code = MICKY) Association of [...] tests). Lab Interpretation Abnormal (test code = 77957-2) [facility]. METABOLIC PANEL (96683)2021-10-07 12:06:32 Test Item Value Reference Range Interpretation Comments NA (test code = 139 mmol/L 135-145 9814795379) K (test code = 4.1 mmol/L 3.5-5.0 6961239339) CL (test code = 110 mmol/L 98-108 H 7191726866) CO2 TOTAL (test code = 24 mmol/L 23-31 7738620548) AGAP (test code = 2-16 6565329072) BUN (test code = 6 mg/dL 7-23 L 6486397074) GLUCOSE (test code = 95 mg/dL 70-110 1382767871) CREATININE (test code = 0.48 mg/dL 0.50-1.04 L 8134704782) TOTAL BILI (test code = 0.3 mg/dL 0.1-1.8 0842010376) CALCIUM (test code = 8.2 mg/dL 8.6-10.6 L 4496099842) T PROTEIN (test code = 6.3 g/dL 6.3-8.2 0008137195) ALBUMIN (test code = 3.2 g/dL 3.5-5.0 L 2510362337) ALK PHOS (test code = 60 U/L 34-122 5385254907) ALTv (test code = 12 U/L 5-35 1742-6) AST(SGOT) (test code = 19 U/L 13-40 8261247477) eGFR (test code = mL/min/1.73m2 5201584681) MICKY (test code = MICKY) Association of [...] tests). Lab Interpretation Abnormal (test code = 68016-6) [facility]. METABOLIC PANEL (49282)2021-10-07 12:06:32 Test Item Value Reference Range Interpretation Comments NA (test code = 139 mmol/L 135-145 7140434843) K (test code = 4.1 mmol/L 3.5-5.0 1743839716) CL (test code = 110 mmol/L 98-108 H 0611636407) CO2 TOTAL (test code = 24 mmol/L 23-31 4501704595) AGAP (test code = 2-16 1522828250) BUN (test code = 6 mg/dL 7-23 L 4204496153) GLUCOSE (test code = 95 mg/dL 70-110 9355838583) CREATININE (test code = 0.48 mg/dL 0.50-1.04 L 4022330132) TOTAL BILI (test code = 0.3 mg/dL 0.1-1.5 5757138343) CALCIUM (test code = 8.2 mg/dL 8.6-10.6 L 1967189764) T PROTEIN (test code = 6.3 g/dL 6.3-8.2 7115291322) ALBUMIN (test code = 3.2 g/dL 3.5-5.0 L 9191800181) ALK PHOS (test code = 60 U/L 34-122 0557378631) ALTv (test code = 12 U/L 5-35 1742-6) AST(SGOT) (test code = 19 U/L 13-40 1650483389) eGFR (test code = mL/min/1.73m2 7705463283) MICKY (test code = MICKY) Association of [...] tests). Lab Interpretation Abnormal (test code = 00399-7) [facility] / [id number] 00:45:45 Test Item Value Reference Range Interpretation Comments PROTIME PATIENT (test See_Comment H [Auto mated message] code = 5964-2) The system [employer] generated this result transmitted ref erence range: 10.1 - 1 2.6 Seconds. The reference range was not used to int erpret this result as normal/abnormal . INR (test code = 6301-6) Nor mal INR <1.1; Warfarin Therap eutic range 2.0 to 3. 0 or 2.5 to 3.5, dep ending upon the indica tions. Lab Interpretation (test Abnormal code = 34344-7) [facility] [id number] 00:45:45 Test Item Value Reference Range Interpretation Comments APTT Patient (test code See_Comment L [Au tomated message] = 3173-2) The system [employer] generated this result transmitted ref erence range: 26 - 36 Seconds. The reference range was not used to int erpret this result as normal/abnormal . Lab Interpretation (test Abnormal code = 73495-1) [facility] 00:45:45 Test Item Value Reference Range Interpretation Comments Fibrinogen (test code = 5580682159) 306 mg/dL 167-453 Lab Interpretation (test code = Normal 57372-5) [facility] / [id number] 00:45:45 Test Item Value Reference Range Interpretation Comments PROTIME PATIENT (test See_Comment H [Auto mated message] code = 5964-2) The system [employer] generated this result transmitted ref erence range: 10.1 - 1 2.6 Seconds. The reference range was not used to int erpret this result as normal/abnormal . INR (test code = 6301-6) Nor mal INR <1.1; Warfarin Therap eutic range 2.0 to 3. 0 or 2.5 to 3.5, dep ending upon the indica tions. Lab Interpretation (test Abnormal code = 91838-9) [facility] [id number] 00:45:45 Test Item Value Reference Range Interpretation Comments APTT Patient (test code See_Comment L [Au tomated message] = 3173-2) The system [employer] generated this result transmitted ref erence range: 26 - 36 Seconds. The reference range was not used to int erpret this result as normal/abnormal . Lab Interpretation (test Abnormal code = 02784-9) [facility] 00:45:45 Test Item Value Reference Range Interpretation Comments Fibrinogen (test code = 6765737875) 306 mg/dL 167-453 Lab Interpretation (test code = Normal 83801-3) [facility] / [id number] 00:45:45 Test Item Value Reference Range Interpretation Comments PROTIME PATIENT (test See_Comment H [Auto mated message] code = 5964-2) The system [employer] generated this result transmitted ref erence range: 10.1 - 1 2.6 Seconds. The reference range was not used to int erpret this result as normal/abnormal . INR (test code = 6301-6) Nor mal INR <1.1; Warfarin Therap eutic range 2.0 to 3. 0 or 2.5 to 3.5, dep ending upon the indica tions. Lab Interpretation (test Abnormal code = 07520-7) [facility] [id number] 00:45:45 Test Item Value Reference Range Interpretation Comments APTT Patient (test code See_Comment L [Au tomated message] = 3173-2) The system whic h generated this result transmitted ref erence range: 26 - 36 Seconds. The reference range was not used to int erpret this result as normal/abnormal . Lab Interpretation (test Abnormal code = 59557-8) [facility] 00:45:45 Test Item Value Reference Range Interpretation Comments Fibrinogen (test code = 0067877417) 306 mg/dL 167-453 Lab Interpretation (test code = Normal 44808-3) [facility] WITH [id number] 00:39:06 Test Item Value Reference Range Interpretation Comments [...] 11.6-15.0 L 718-7) HCT (test code = 22.7 % 35.7-45.2 L 4544-3) MCV (test code = 90.1 fL 80.6-95.5 787-2) MCH (test code = 27.8 pg 25.9-32.8 785-6) MCHC (test code = 30.8 g/dL 31.6-35.1 L 786-4) RDW-SD (test code = 62.5 fL 39.0-49.9 H 03125-3) RDW-CV (test code = 19.2 % 12.0-15.5 H 788-0) PLT (test code = See_Comment L [Automated 777-3) message] The sy stem which generated this result transmitted reference range : 166 - 358 10*3/ ?L. The reference r susan was not used to interpret this result as normal/abnormal . MPV (test code = 10.4 fL 9.5-12.9 06169-5) NRBC/100 WBC (test See_Comment [Automat ed code = 8535097199) message] The system which generated this result transmitted reference range : 0.0 - 10.0 /100 WBCs. The refer ence range was not u sed to interpret th is result as normal/abnormal . NRBC x10^3 (test code <0.01 See_Comment [Auto mated = 2958729544) message] The s ystem which generated this result transmitted reference range : 10*3/?L. The reference range was not used to interpret this result as normal/abnormal . GRAN MAT (NEUT) % 64.9 % (test code = 770-8) IMM GRAN % (test code 0.40 % = 4502318204) LYMPH % (test code = 24.5 % 736-9) MONO % (test code = 6.8 % 5905-5) EOS % (test code = 3.0 % 713-8) BASO % (test code = 0.4 % 706-2) GRAN MAT x10^3(ANC) 3.23 10*3/uL 1.88-7.09 (test code = 6430779182) IMM GRAN x10^3 (test <0.03 0.00-0.06 code = 6931688533) LYMPH x10^3 (test code 1.22 10*3/uL 1.32-3.29 L = 731-0) MONO x10^3 (test code 0.34 10*3/uL 0.33-0.92 = 742-7) EOS x10^3 (test code = 0.15 10*3/uL 0.03-0.39 711-2) BASO x10^3 (test code <0.03 0.01-0.07 = 704-7) Lab Interpretation Abnormal (test code = 36717-9) [facility] WITH [id number] 00:39:06 Test Item Value Reference Range Interpretation Comments [...] 11.6-15.0 L 718-7) HCT (test code = 22.7 % 35.7-45.2 L 4544-3) MCV (test code = 90.1 fL 80.6-95.5 787-2) MCH (test code = 27.8 pg 25.9-32.8 785-6) MCHC (test code = 30.8 g/dL 31.6-35.1 L 786-4) RDW-SD (test code = 62.5 fL 39.0-49.9 H 84953-2) RDW-CV (test code = 19.2 % 12.0-15.5 H 788-0) PLT (test code = See_Comment L [Automated 777-3) message] The sy stem which generated this result transmitted reference range : 166 - 358 10*3/ ?L. The reference r susan was not used to interpret this result as normal/abnormal . MPV (test code = 10.4 fL 9.5-12.9 91167-9) NRBC/100 WBC (test See_Comment [Automat ed code = [id number]) message] The system which generated this result transmitted reference range : 0.0 - 10.0 /100 WBCs. The refer ence range was not u sed to interpret th is result as normal/abnormal . NRBC x10^3 (test code <0.01 See_Comment [Auto mated = [id number]) message] The s ystem which generated this result transmitted reference range : 10*3/?L. The reference range was not used to interpret this result as normal/abnormal . GRAN MAT (NEUT) % 64.9 % (test code = 770-8) IMM GRAN % (test code 0.40 % = 9606049507) LYMPH % (test code = 24.5 % 736-9) MONO % (test code = 6.8 % 5905-5) EOS % (test code = 3.0 % 713-8) BASO % (test code = 0.4 % 706-2) GRAN MAT x10^3(ANC) 3.23 10*3/uL 1.88-7.09 (test code = 1014541699) IMM GRAN x10^3 (test <0.03 0.00-0.06 code = 3337567056) LYMPH x10^3 (test code 1.22 10*3/uL 1.32-3.29 L = 731-0) MONO x10^3 (test code 0.34 10*3/uL 0.33-0.92 = 742-7) EOS x10^3 (test code = 0.15 10*3/uL 0.03-0.39 711-2) BASO x10^3 (test code <0.03 0.01-0.07 = 704-7) Lab Interpretation Abnormal (test code = 57611-2) [facility] WITH [id number] 00:39:06 Test Item Value Reference Range Interpretation Comments WBC (test code = See_Comment [Automated 0590-2) message] The sy stem which generated this [...] 11.6-15.0 L 718-7) HCT (test code = 22.7 % 35.7-45.2 L 4544-3) MCV (test code = 90.1 fL 80.6-95.5 787-2) MCH (test code = 27.8 pg 25.9-32.8 785-6) MCHC (test code = 30.8 g/dL 31.6-35.1 L 786-4) RDW-SD (test code = 62.5 fL 39.0-49.9 H 46924-5) RDW-CV (test code = 19.2 % 12.0-15.5 H 788-0) PLT (test code = See_Comment L [Automated 777-3) message] The sy stem which generated this result transmitted reference range : 166 - 358 10*3/ ?L. The reference r susan was not used to interpret this result as normal/abnormal . MPV (test code = 10.4 fL 9.5-12.9 17226-0) NRBC/100 WBC (test See_Comment [Automat ed code = 0417422899) message] The system which generated this result transmitted reference range : 0.0 - 10.0 /100 WBCs. The refer ence range was not u sed to interpret th is result as normal/abnormal . NRBC x10^3 (test code <0.01 See_Comment [Auto mated = 1752836704) message] The s ystem which generated this result transmitted reference range : 10*3/?L. The reference range was not used to interpret this result as normal/abnormal . GRAN MAT (NEUT) % 64.9 % (test code = 770-8) IMM GRAN % (test code 0.40 % = 3130769451) LYMPH % (test code = 24.5 % 736-9) MONO % (test code = 6.8 % 5905-5) EOS % (test code = 3.0 % 713-8) BASO % (test code = 0.4 % 706-2) GRAN MAT x10^3(ANC) 3.23 10*3/uL 1.88-7.09 (test code = 5387627262) IMM GRAN x10^3 (test <0.03 0.00-0.06 code = 0585766539) LYMPH x10^3 (test code 1.22 10*3/uL 1.32-3.29 L = 731-0) MONO x10^3 (test code 0.34 10*3/uL 0.33-0.92 = 742-7) EOS x10^3 (test code = 0.15 10*3/uL 0.03-0.39 711-2) BASO x10^3 (test code <0.03 0.01-0.07 = 704-7) Lab Interpretation Abnormal (test code = 59908-0) [facility] - [facility] [id number] 21:53:57 Test Item Value Reference Range Interpretation Comments ABO & RH (test code A POSITIVE Performe d at [facility] = 20) Laboratory [facility] [place] [facility] [place] [address]Gswt Free: [phone] A No. [id number] IAT (test code = Negative Performed a t [facility] 1185) Laboratory [facility] [place] [facility] [place] [address] 27953Kcow Free: [phone] A No. [id number] [facility] This is a pre-surgical type and screen. ONCE [id number] 21:53:57 Test Item Value Reference Range Interpretation Comments ABO & RH (test code A POSITIVE Performe d at [facility] = 20) Laboratory [facility] [place] [facility] [place] [address] s [id number] Free: [phone] A No. [id number] IAT (test code = Negative Performed a t [facility] 1185) Laboratory [facility] [place] [facility] [place] [address] s [address]Unnp Free: [phone] A No. [id number] [facility] [id number] 21:53:57 Test Item Value Reference Range Interpretation Comments ABO & RH (test code A POSITIVE Performe d at [facility] = 20) Laboratory [facility] [place] [facility] [place] [address] s [id number] Free: [phone] A No. [id number] IAT (test code = Negative Performed a t [facility] 1185) Laboratory [facility] [place] [facility] [place] [address] s 236[address]Qgfh Free: [phone] A No. [id number] [facility] This is a pre-surgical type and screen. ONCE [id number] 21:53:57 Test Item Value Reference Range Interpretation Comments ABO & RH (test code A POSITIVE Performe d at [facility] = 20) Laboratory [facility] [place] [facility] [place] [address] s 95[address]Gnoz Free: [phone] A No. [id number] IAT (test code = Negative Performed a t [facility] 1185) Laboratory [facility] [place] [facility] Blood [address] s [address]Ljuj Free: [phone] A No. [id number] [facility] [id number] 21:53:57 Test Item Value Reference Range Interpretation Comments ABO & RH (test code A POSITIVE Performe d at [facility] = 20) Laboratory [facility] [place] [facility] [place] [address] s 127[address]Lxwc Free: [phone] A No. [id number] IAT (test code = Negative Performed a t [facility] 1185) Laboratory [facility] [place] [facility] Blood [address] s [address]Wfhi Free: [phone] A No. [id number] [facility] BranchType and Screen - This is a pre-surgical type and screen. ONCE [id number] 21:53:57 Test Item Value Reference Range Interpretation Comments ABO & RH (test code A POSITIVE Performe d at [facility] = 20) Laboratory [facility] [place] [facility] [place] [address] s [address]Jhdc Free: [phone] A No. [id number] IAT (test code = Negative Performed a t [facility] 1185) Laboratory [facility] [place] [facility] [address] [place] [address] s 85[address]Htjx Free: [phone] A No. [id number] [facility] [id number] 20:12:00 Test Item Value Reference Range Interpretation Comments POCT PREG (test code = 1605) Negative On board controls acceptable with C Yes Line (test code = 3574) POCT PREG LOT # (test code = 3575) POCT PREG TEST DATE (test code = 3576) [facility] [id number] 20:12:00 Test Item Value Reference Range Interpretation Comments POCT PREG (test code = 1605) Negative On board controls acceptable with C Yes Line (test code = 3574) POCT PREG LOT # (test code = 3575) POCT PREG TEST DATE (test code = 3576) [facility] [id number] 20:12:00 Test Item Value Reference Range Interpretation Comments POCT PREG (test code = 1605) Negative On board controls acceptable with C Yes Line (test code = 3574) POCT PREG LOT # (test code = 3575) POCT PREG TEST DATE (test code = 3576) [facility] [id number] 08:31:00 Test Item Value Reference Range Interpretation [...] REQUIRED (test code = PLTMR) CBC W/AUTO [id number] 13:59:00 Test Item Value Reference Range Interpretation Comments WHITE BLOOD CELL (test 4.4 K/mm3 6.5-12.3 L code = WBC) RED BLOOD CELL (test 3.63 M/mm3 3.51-4.69 N code = RBC) HEMOGLOBIN (test code = 9.6 g/dL 10.1-13.8 L Res ults verified HGB) by repeat mindi sis HEMATOCRIT (test code = 31.6 % 32.5-41.8 L Res ults verified HCT) by repeat mindi sis MEAN CELL VOLUME (test 87.1 fL 84.6-96.6 N code = MCV) MEAN CELL HGB (test code 26.4 pg 27.3-33.9 L = MCH) MEAN CELL HGB 30.4 gm/dL 32.0-34.2 L CONCETRATION (test code = MCHC) RED CELL DISTRIBUTION 15.6 % 12.2-16.3 N WIDTH (test code = RDW) PLATELET COUNT (test 82 K/mm3 134-363 LL RESULT S CALLED TO code = PLT) NIKOLAS STEVE.RE AD BACK & CONFIRME D? Y.BY [id number] 05/04/21 1356 IMMATURE PLATELET 6.0 % 0.0-10.8 N [...] REQUIRED (test code = PLTMR) CBC W/AUTO [id number] 00:52:00 Test Item Value Reference Range Interpretation Comments WHITE BLOOD CELL (test 6.5 K/mm3 6.5-12.3 N code = WBC) RED BLOOD CELL (test 2.45 M/mm3 3.51-4.69 L code = RBC) HEMOGLOBIN (test code = 6.4 g/dL 10.1-13.8 LL RESU LTS CALLED TO HGB) CLIFFORD VILLAGOMEZ AD BACK & CONFIRME D? YBY [id number] 05/04/21 0025 HEMATOCRIT (test code = 21.5 [...] REQUIRED (test code = PLTMR) COMPREHENSIVE METABOLIC [id number] 00:38:00 Test Item Value Reference Range Interpretation [...] units/L 46-116 N code = ALKP) PROTHROMBIN [id number] 00:35:00 Test Item Value Reference Range Interpretation Comments PROTHROMBIN TIME PATIENT (test code 13.6 secs 10.1-12.3 H = PTP) THROMBOPLASTIN TIME [id number] 00:35:00 Test Item Value Reference Range Interpretation Comments THROMBOPLASTIN TIME PARTIAL (test 30.6 secs 22-38 N code = PTT) - DUP AB/PEL/SC/[id number] 00:00:00 [facility] 1985 Sex: F Patient Name: SEKOU CAMPBELL Unit No: [id number] EXAMS: CPT CODE: [id number] DUP AB/PEL/SC/LTD 91963 PROCEDURE INFORMATION: Exam: US Pelvis Complete (Transabdominal), Pelvis (Transvaginal),and US Duplex Artery or Vein (Ovaries) Limited Exam date and time: 05/04/2021 12:15 AM Age: 35 years old Clinical indication: Abdominal or pelvic symptoms: H/o ruptured ov cyst abd pain; Prior surgery; Surgery type: C/s TECHNIQUE: Imaging protocol: Real-time transabdominal and transvaginal pelvic ultrasound (complete) with image documentation. Transvaginal imaging was used for better evaluation of theendometrium, adnexa, and/or cervix. Real-time duplex ultrasound scan of the arterial or venous flow o f the ovaries with B-mode, color Doppler flow and spectral waveform analysis. Complete Pelvis, Limited Duplex. COMPARISON: US PELVIC, US PELVIC 05/03/2020 1:15 AM FINDINGS: Uterus: On the transabdominalexam, the uterus measures 9.5 x 5.4 x [...] free fluid in the right adnexa measures 10.0 cm. Left ovary/adnexa: Left ovary measures 2.8 x 2.0 x 2.3 cm on endovaginalexam. There is dilatation of the left fallopian tube. Complex free fluid in the left adnexa measures4.0 cm. Intraperitoneal space: Hemoperitoneum. Urinary bladder: Visualized bladder is unremarkable. Vasculature: There is normal flow to both ovaries. No evidence for ovarian torsion is present. Other f indings: 3.1 cm lesion within the right hepatic lobe is incidentally noted. IMPRESSION: 1. Hemoperitoneum in pelvis, right greater than left. 2. Thick- walled right ovarian cyst, possibly hemorrhagic cyst or recently ruptured follicle. 3. No ovarian torsion bilaterally. 4. 3.1 cm lesion within the liver, incompletely evaluated. 5. Unremarkable uterus. at 0121 Reported and signed by: Reza Alexandre MD [facility] NAME: SEKOU CAMPBELL Radiology Department PHYS: KHAHE. Chelo Ramírez MD [address] : 1985 AGE: 35 SEX: F [place], [place] [address] LOC: FAdrianERS PHONE #: [phone] EXAM DATE: 05/04/2021 STATUS: REG ER FAX #: [phone] RAD NO: Page 1 Signed Report (CONTINUED) Patient Name: SEKOU CAMPBELL Unit No: [id number] EXAMS: CPT CODE: [id number] DUP AB/PEL/SC/LTD 82976 (Continued) CC: Chelo Ramírez MD Technologist: Griselda Streeter RDMS Probe: Trnscrbd D/ (0121) GCD.CPS Orig Print D/T: S: 05/04/2021 (0124) [facility] NAME: SEKOU CAMPBELL Radiology Department PHYS: Chelo Ramírez MD [address] : 1985 AGE: 35 SEX: F [place], [place] [address] LOC: F.ERS PHONE #: [phone] EXAM DATE: 05/04/2021 STATUS: REG ER FAX #: [phone] RAD NO: Page 2 Signed Report Patient Name: SEKOU CAMPBELL Unit No: [id number] EXAMS: CPT CODE: [id number] DUP AB/PEL/SC/LTD 69696 (Continued) [facility] NAME: SEKOU CAMPBELL Radiology Department PHYS: LASHELLKIMBERLEEPercy Chelo Ramírez MD [address] : 1985 AGE: 35 SEX: F [place], [place] [address] LOC: F.ERS PHONE #: [phone] EXAM DATE: 05/04/2021 STATUS: REG ER FAX #: [phone] RAD NO: Page 3 Signed Report- US PELVIS COMPLETE 2021-05-04 00:00:00 [facility] 1985 Sex: F Patient Name: SEKOU CAMPBELL Unit No: [id number] EXAMS: CPT CODE: [id number] US PELVIS COMPLETE 58272 PROCEDURE INFORMATION: Exam: US Pelvis Complete (Transabdominal), Pelvis (Transvaginal), and US Duplex Artery or Vein (Ovaries) Limited Exam date and time: 05/04/2021 12:15 AM Age: 35 yearsold Clinical indication: Abdominal or pelvic symptoms: H/o ruptured ov cyst abd pain; Prior surgery;Surgery type: C/s TECHNIQUE: Imaging protocol: Real-time transabdominal and transvaginal pelvic ultrasound (complete) with image documentation. Transvaginal imaging was used for better evaluation of the endometrium, adnexa, and/or cervix. Real-time duplex ultrasound scan of the arterial or venous flowof the ovaries with B-mode, color Doppler flow and spectral waveform analysis. Complete Pelvis, Limited Duplex. COMPARISON: US PELVIC, US PELVIC 05/03/2020 1:15 AM FINDINGS: Uterus: On the transabdominal exam, the uterus measures 9.5 x 5.4 x 4.7 cm. Endometrial stripe is not well visualized. On the endovaginal exam, the uterus measures 10.2 x 4.5 x 5.8 cm. Endometrial stripe measures 6 mm. No uterinefibroid is present. Right ovary/adnexa: The right ovary measures 5.2 x 3.6 x 3.5 cm on endovaginal exam. Thick-walled cyst within the right ovary measures 2.5 x 3.4 x 2.7 cm. Complex free fluid in the right adnexa measures 10.0 cm. Left ovary/adnexa: Left ovary measures 2.8 x 2.0 x 2.3 cm on endovaginal exam. There is dilatation of the left fallopian tube. Complex free fluid in the left adnexa measures 4.0 cm. Intraperitoneal space: Hemoperitoneum. Urinary bladder: Visualized bladder is unremarkable. Vasculature: There is normal flow to both ovaries. No evidence for ovarian torsion is present. Other findings: 3.1 cm lesion within the right hepatic lobe is incidentally noted. IMPRESSION: 1. Hemoperitoneum in pelvis, right greater than left. 2. Thick-walled right ovarian cyst, possibly hemorrhagic cyst or recently ruptured follicle. 3. No ovarian torsion bilaterally. 4. 3.1 cm lesion within the liver, incompletely evaluated. 5. Unremarkable uterus. Electronically Signed by Reza Burch 05/04/2021 at 0121 Reported and signed by: Reza Alexandre MD [facility] Radiology Department PHYS: Chelo Ramírez MD [address] : 1985 AGE: 35 SEX: F [place] [address] LOC: F.ERS PHONE #: [phone] EXAM DATE: 05/04/2021 STATUS: REG ER FAX #: [phone] RAD NO: Page 1 Signed Report (CONTINUED) Patient Name: SEKOU CAMPBELL Unit No: [id number] EXAMS: CPT CODE: [id number] US PELVIS COMPLETE 76464 (Continued) CC: Cheol Ramírez MD Technologist: Griselda Streeter RDMS Probe: Trnscrbd D/ (0121) GCD.CPS Orig Print D/T: S: 05/04/2021 (0121) [facility] NAME: SEKOU CAMPBELL Radiology Department PHYS: Chelo Ramírez MD [address] : 1985 AGE: 35 SEX: F [place] [address] LOC: Maya.ERS PHONE #: [phone] EXAM DATE: 05/04/2021 STATUS: REG ER FAX #: [phone] RAD NO: Page 2 Signed Report Patient Name: SEKOU CAMPBELL Unit No: [id number] EXAMS: CPT CODE: [id number] US PELVIS COMPLETE 69020 (Continued) [facility] NAME: SEKOU CAMPBELL Radiology Department PHYS: Chelo Ramírez MD [address] : 1985 AGE: 35 SEX: F [place] [address] LOC: F.ERS PHONE #: [phone] EXAM DATE: 05/04/2021 STATUS: REG ER FAX #: [phone] RAD NO: Page 3 Signed Report- US TRANSVAGINAL W/[id number] 00:00:00 [facility] : 1985 Sex: F Patient Name: SEKOU CAMPBELL Unit No: [id number] EXAMS: CPT CODE: [id number] US TRANSVAGINAL W/PELVIS 22094 PROCEDURE INFORMATION: Exam: US Pelvis Complete (Transabdominal), [...] cm. Endometrial stripe measures 6 mm. No ut erine fibroid is present. Right ovary/adnexa: The right ovary measures 5.2 x 3.6 x 3.5 cm on endovaginal exam. Thick-walled cyst within the right ovary measures 2.5 x 3.4 x 2.7 cm. Complex free fluid in the right adnexa measures 10.0 cm. Left ovary/adnexa: Left ovary measures 2.8 x 2.0 x 2.3 cm on endovaginal exam. There is dilatation of the left fallopian tube. Complex free fluid in the left adnexa measures 4.0 cm. Intraperitoneal space: Hemoperitoneum. Urinary bladder: Visualized bladder is unremarkable. Vasculature: There is normal flow to both ovaries. No evidence for ovarian torsion is present. Other findings: 3.1 cm lesion within the right hepatic lobe is incidentally noted. IMPRESSION: 1. He moperitoneum in pelvis, right greater than left. 2. Thick-walled right ovarian cyst, possibly hemorrhagic cyst or recently ruptured follicle. 3. No ovarian torsion bilaterally. 4. 3.1 cm lesion within the liver, incompletely evaluated. 5. Unremarkable uterus. at 0121 Reported and signed by: Reza Alexandre MD [facility] NAME: ADRIANSEKOU Radiology Department PHYS: Chelo Ramírez MD [address] : 1985 AGE: 35 SEX: F [place], [place] [address] LOC: JOSSUE PHONE #: [phone] EXAM DATE: 05/04/2021 STATUS: REG ER FAX #: [phone] RAD NO: Page 1 Signed Report (CONTINUED) Patient Name: SEKOU CAMPBELL Unit No: [id number] EXAMS: CPT CODE: [id number] US TRANSVAGINAL W/PELVIS 20087 (Continued) CC: Chelo Ramírez MD Technologist: Griselda Streeter RDMS Probe: [id number] Trnscrbd D/ (012) GCD.CPS Orig Print D/T: S: 05/04/2021 (012) [facility] NAME: SEKOU CAMPBELL Radiology Department PHYS: Chelo Ramírez MD [address] : 1985 AGE: 35 SEX: F [place], [place] [address] LOC: Maya.ERS PHONE #: [phone] EXAM DATE: 05/04/2021 STATUS: REG ER FAX #: [phone] RAD NO: Page 2 Signed Report Patient Name: SEKOU CAMPBELL Unit No: [id number] EXAMS: CPT CODE: [id number] US TRANSVAGINAL W/PELVI S 44734 (Continued) [facility] NAME: SEKOU CAMPBELL Radiology Department PHYS: DEMIAN. Chelo Ramírez MD [address] : 1985 AGE: 35 SEX: F [place], [place] [address] LOC: Maya.ERS PHONE #: [phone] EXAM DATE: 05/04/2021 STATUS: REG ER FAX #: [phone] RAD NO: Page 3 Signed Report- DUP VEIN [id number] 08:04:00 [facility] : 1985 Sex: F Patient Name: SEKOU CAMPBELL Unit No: [id number] EXAMS: CPT CODE: [id number] DUP VEIN SAMANTHA 75099 BILATERAL LOWER EXTREMITY DUPLEX VENOUS DOPPLER ULTRASOUND, 05/04/2020 COMPARISON: None CLINICAL HISTORY: LEG PAIN FINDINGS: Examination is limited due to patient's restlessness leg syndrome and back pain. Insofar as visualized, there is normal deep venous compressibility and Doppler flow in theveins to the level of the knees. Assessment [...] t.PRIMITIVOR.AJ13 Orig Print D/T: S: 05/04/2020 (0807) [facility] NAME: SEKOU CAMPBELL Radiology Department PHYS: Magdalena Borrego MD [address] : 1985 AGE: 34 SEX: F [place] [address] LOC: TANGELA4 A PHONE #: [phone] EXAM DATE: 05/04/2020 STATUS: ADM IN FAX #: [phone] RAD NO: Page 1 Signed Report Patient Name: SEKOU CAMPBELL Unit No: [id number] EXAMS: CPT CODE: [id number] DUP VEIN SAMANTHA [address]31 (Continued) [facility] NAME: SEKOU CAMPBELL Radiology Department PHYS: Magdalena Bay MD [address] : 1985 AGE: 34 SEX: F [place] [address] LOC: Liat4 A PHONE #: [phone] EXAM DATE: 05/04/2020 STATUS: ADM IN FAX #: [phone] RAD NO:Page 2 Signed ReportCBC W/AUTO DIFF 2020-05-04 04:57:00 Test Item Value [...] NORMAL REQUIRED (test code = PLTMR) WBC [id number] 04:57:00 Test Item Value Reference Range Interpretation [...] NORMAL A code = PLTMORPH) CBC W/AUTO [id number] 04:56:00 Test Item Value Reference Range Interpretation [...] PLT) ROSARIO JED K & CONFIRMED? Y.BY F.LAB. 0456Results verified by rep eat analysis IMMATURE PLATELET 8.4 % 0.0-10.8 N FRACTION (test code = IPF) MEAN PLATELET VOLUME 12.9 fl 9.1-12.7 H (test code = MPV) MANUAL DIFF REQUIRED YES (test code = MDIFF) RBC MORPHOLOGY REQUIRED NORMAL NORMAL (test code = RBCM) PLATELET MORPHOLOGY ABNORMAL NORMAL REQUIRED (test code = PLTMR) WBC [id number] 04:56:00 Test Item Value Reference Range Interpretation Comments SEGMENTED NEUTROPHILS (test code = SEG) % 56.5-79.4 LYMPHOCYTE (test code = LYMPH) % 20-40 CBC W/AUTO [id number] 04:56:00 Test Item Value Reference Range Interpretation [...] PLT) ROSARIO JED K & CONFIRMED? Y.BY F.LAB. 0456Results verified by rep eat analysis IMMATURE PLATELET 8.4 % 0.0-10.8 N FRACTION (test code = IPF) MEAN PLATELET VOLUME 12.9 fl 9.1-12.7 H (test code = MPV) MANUAL DIFF REQUIRED YES (test code = MDIFF) RBC MORPHOLOGY REQUIRED NORMAL NORMAL (test code = RBCM) PLATELET MORPHOLOGY ABNORMAL NORMAL REQUIRED (test code = PLTMR) WBC [id number] 04:56:00 Test Item Value Reference Range Interpretation Comments SEGMENTED NEUTROPHILS (test code = SEG) % 56.5-79.4 LYMPHOCYTE (test code = LYMPH) % 20-40 COMPREHENSIVE METABOLIC [id number] 04:39:00 Test Item Value Reference Range Interpretation [...] 46-116 N code = ALKP) CBC W/AUTO [id number] 19:13:00 Test Item Value Reference Range Interpretation Comments WHITE BLOOD CELL 5.9 K/mm3 6.6-12.1 L (test code = WBC) RED BLOOD CELL (test 2.60 M/mm3 3.45-5.01 L code = RBC) HEMOGLOBIN (test 6.9 g/dL 10.7-13.9 L RESULTS FERMIN IFIED BY code = HGB) REPEAT ANALYSIS RESULTS CALLED TO H.RAIN ET.READ BACK & CONFIRME D? Y.BY F.LAB.[facility] 05/03. HEMATOCRIT (test 22.1 % 32.1-42.1 L [...] RESULT S CALLED TO code = PLT) MANUELREAD BA CK & CONFIRMED? Y.BY F.LAB.[facility] 05/03 IMMATURE PLATELET 6.4 % 0.0-10.8 N [...] REQUIRED (test code PRESENT = PLTMR) LACTIC [id number] 19:05:00 Test Item Value Reference Range Interpretation Comments LACTIC ACID (test 4.5 MMOL/L 0.5-2.2 HH RESULTS CA LLED TO code = LACT) READ BACK & CONFIRMED? YES. BY GlenAS04 04/17. COMPREHENSIVE METABOLIC [id number] 19:01:00 Test Item Value Reference Range Interpretation [...] 60 units/L 46-116 code = ALKP) PROTHROMBIN [id number] 19:01:00 Test Item Value Reference Range Interpretation Comments PROTHROMBIN TIME PATIENT (test code 13.3 secs 10.4-12.4 H = PTP) THROMBOPLASTIN TIME [id number] 19:01:00 Test Item Value Reference Range Interpretation Comments THROMBOPLASTIN TIME PARTIAL (test 20.6 secs 22-38 L code = PTT) [id number] 19:01:00 Test Item Value Reference Range Interpretation Comments FIBRINOGEN (test code = FIB) 141 mg/dL 309-518 L UA RFLX MICR CULT IF [id number] 12:47:00 Test Item Value Reference Range Interpretation [...] RiskForSepsis-no oth srcSpecimen Description: CLEAN CATCHUR HCG [id number] 12:47:00 Test Item Value Reference Range Interpretation [...] Description: CLEAN CATCHUA RFLX MICR CULT IF [id number] 12:36:00 Test Item Value Reference Range Interpretation [...] RiskForSepsis-no oth srcSpecimen Description: CLEAN CATCHUR HCG [id number] 12:36:00 Test Item Value Reference Range Interpretation [...] culture: RiskForSepsis-no oth srcSpecimen Description: CLEAN CATCHPROTHROMBIN [id number] 10:14:00 Test Item Value Reference Range Interpretation Comments PROTHROMBIN TIME PATIENT (test code 13.3 secs 10.4-12.4 H = PTP) THROMBOPLASTIN TIME [id number] 10:14:00 Test Item Value Reference Range Interpretation Comments THROMBOPLASTIN TIME PARTIAL (test 19.4 secs 22-38 L code = PTT) [id number] 10:14:00 Test Item Value Reference Range Interpretation Comments FIBRINOGEN (test code = FIB) 102 mg/dL 309-518 L COMPREHENSIVE METABOLIC [id number] 09:54:00 Test Item Value Reference Range Interpretation [...] units/L 46-116 N code = ALKP) HGB [id number] 06:49:00 Test Item Value Reference Range Interpretation Comments HEMOGLOBIN (test code = 4.5 g/dL 10.7-13.9 LL RESU LTS CALLED TO HGB) DAY.READ BACK & CONFIRMED? YES. BY F.LAB.IR1 05/0349.Results ve rified by repeat mindi sis HEMATOCRIT (test code = 16.2 % 32.1-42.1 LL RESU LTS CALLED TO HCT) DAY.READ BACK & CONFIRMED? YES. BY F.LAB.IR1 05/0349.Results ve rified by repeat mindi sis"
--- NOTE | 2022-01-01 14:26 | RAD REPORT ---
EXAM DESCRIPTION: RAD -Hand Left 3 View - 01/01/2022 2:09 pm CLINICAL HISTORY: Left hand pain status post injury FINDINGS: Nondisplaced fracture distal radius No dislocation
--- NOTE | 2022-01-01 14:27 | RAD REPORT ---
EXAM DESCRIPTION: RAD - Elbow Left 3 View - 01/01/2022 2:09 pm CLINICAL HISTORY: Left elbow pain status post trauma FINDINGS: No fracture or dislocation is seen.
--- NOTE | 2022-01-01 14:27 | RAD REPORT ---
EXAM DESCRIPTION: RAD - Forearm Left - 01/01/2022 2:09 pm CLINICAL HISTORY: Left forearm pain status post injury FINDINGS: Nondisplaced fracture distal radius
--- NOTE | 2022-01-01 14:33 | RAD REPORT ---
EXAM DESCRIPTION: RAD - Foot Left 3 View - 01/01/2022 2:09 pm CLINICAL HISTORY: Left Foot pain status post injury FINDINGS: Surgical fusion involves the ankle and hindfoot. No fracture or dislocation Osteoporosis Hallux valgus deformity
--- NOTE | 2022-01-01 15:07 | ER ---
Nurse's Notes [facility] Name: Bri Boyd Age: 36 yrs Sex: Female : 1985 Arrival Date: 01/01/2022 Time: 13:11 Bed 19 Private MD: Diagnosis: Left Distal Radius Fracture;Fall (on) (from) other stairs and steps, initial encounter;Pain in left ankle and joints of left foot Presentation: 01/01 13:14 Chief complaint: Left hand and wrist pain after fall from standing last night. Denies hb other injuries. Coronavirus screen: At this time, the client does not indicate any symptoms associated with coronavirus-19. Ebola Screen: No symptoms or risks identified at this time. Risk Assessment: Do you want to hurt yourself or someone else? Patient reports no desire to harm self or others. Onset of symptoms was December 31, 2021. 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 - Social history:: Smoking status: unknown. Screenin:36 Abuse screen: Denies threats or abuse. Denies injuries from another. Nutritional tp1 screening: No deficits noted. Tuberculosis screening: No symptoms or risk factors identified. Fall Risk Fall in past 12 months (25 points). No secondary diagnosis (0 pts). IV access (20 points). Ambulatory Aid- None/Bed Rest/Nurse Assist (0 pts). Gait- Normal/Bed Rest/Wheelchair (0 pts) Mental Status- Oriented to own ability (0 pts). Assessment: 13:20 General: Appears in no apparent distress. uncomfortable, Behavior is calm, cooperative. tp1 Pain: Complains of pain in left hand, left wrist, left ankle, left foot Pain radiates to left leg Pain currently is 10 out of 10 on a pain scale. Pain began today Is continuous. Neuro: Level of Consciousness is awake, alert, obeys commands, Oriented to person, place, time, situation. Cardiovascular: Capillary refill < 3 seconds in bilateral fingers toes Patient's skin is warm and dry. Pulses are all present. Respiratory: Airway is patent Respiratory effort is even, unlabored. GI: Abdomen is round non-distended. : No signs and/or symptoms were reported regarding the genitourinary system. EENT: No signs and/or symptoms were reported regarding the EENT system. Derm: Skin is pink, warm \T\ dry. Musculoskeletal: Swelling present in left leg and left foot. 13:31 Reassessment: ice pack applied to left wrist/hand. tp1 13:55 Reassessment: Xray at bedside. tp1 14:20 Reassessment: Patient appears in no apparent distress at this time. No changes from tp1 previously documented assessment. Patient is alert, oriented x 3, equal unlabored respirations, skin warm/dry/pink. 14:44 Reassessment: provider at bedside. tp1 Vital Signs: 13:14 BP 118 / 67; Pulse 94; Resp 16; Temp 98.3; Pulse Ox 100% on R/A; Weight 68.04 kg; hb Height 5 ft. 6 in. (167.64 cm); Pain 10/10; 13:36 BP 105 / 58; Pulse 83; Resp 16; Pulse Ox 97% on R/A; tp1 14:45 BP 101 / 56; Pulse 66; Resp 16; Pulse Ox 99% on R/A; tp1 13:14 Body Mass Index 24.21 (68.04 kg, 167.64 cm) hb ED Course: 13:11 Patient arrived in ED. as 13:15 Triage completed. hb 13:15 Arm band placed on. hb 13:16 Gm Lopez PA is PHCP. cp 13:16 Rossy Robles MD is Attending Physician. cp 13:19 Shauna Kirk, MCKENZIE is Primary Nurse. tp1 13:36 Patient has correct armband on for positive identification. Bed in low position. Call tp1 light in reach. Side rails up X 1. Adult w/ patient. 13:36 Pulse ox on. NIBP on. tp1 14:11 XRAY Hand LEFT 3 View In Process Unspecified. EDMS 14:11 XRAY Forearm LEFT In Process Unspecified. EDMS 14:11 XRAY Elbow LEFT 3 view In Process Unspecified. EDMS 14:11 XRAY Foot LEFT 3 View In Process Unspecified. EDMS 14:46 XRAY Tib Fib LEFT In Process Unspecified. EDMS 15:05 Mc Beckham MD is Referral Physician. cp 15:37 Velcro wrist splint applied to left wrist. PT was originally ordered a sugar tong em1 orthoglass splint with sling; pt refused splint and requested an sara wrap; provider changed the order to velcro volar splint. 16:29 No provider procedures requiring assistance completed. Patient did not have IV access tp1 during this emergency room visit. Administered Medications: 15:06 Drug: fentaNYL (PF) 25 mcg Route: IM; Site: right deltoid; tp1 16:30 Follow up: Response: Pain is decreased tp1 Medication: 16:29 VIS not applicable for this client. tp1 Outcome: 15:06 Discharge ordered by . cp 16:30 Discharged to home ambulatory, with friend. tp1 16:30 Condition: good 16:30 Discharge instructions given to patient, Instructed on discharge instructions, follow up and referral plans. Demonstrated understanding of instructions, follow-up care. 16:31 Patient left the ED. tp1 Signatures: Dispatcher [employer] EDMS Sondra Bauer Eric em1 Gm Lopez PA PA cp Nayeli Hernandez, MCKENZIE RN Shauna Garcia RN RN tp1
--- NOTE | 2022-01-01 15:07 | EDPHYS ---
Physician Documentation [facility] Name: Bri Boyd Age: 36 yrs Sex: Female : 1985 Arrival Date: 01/01/2022 Time: 13:11 Bed 19 Private MD: ED Physician Rossy Robles HPI: 01/01 13:30 This 36 yrs old Female presents to ER via Wheelchair with complaints of Fall Injury. cp 13:30 Details of fall: The patient fell from an upright position, while walking. cp 13:30 Onset: The symptoms/episode began/occurred last night. Associated injuries: The patient cp sustained left hand and left wrist, painful injury, left ankle, painful injury. Severity of symptoms: in the emergency department the symptoms are unchanged, despite home interventions. 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 - Social history:: Smoking status: unknown. Vital Signs: 13:14 BP 118 / 67; Pulse 94; Resp 16; Temp 98.3; Pulse Ox 100% on R/A; Weight 68.04 kg; hb Height 5 ft. 6 in. (167.64 cm); Pain 10/10; 13:36 BP 105 / 58; Pulse 83; Resp 16; Pulse Ox 97% on R/A; tp1 14:45 BP 101 / 56; Pulse 66; Resp 16; Pulse Ox 99% on R/A; tp1 13:14 Body Mass Index 24.21 (68.04 kg, 167.64 cm) hb MDM: 13:23 Patient medically screened. cp 15:00 ED course: Review of [place] [employer] website shows patient received #120 cp Hydrocodone 10/325 and #30 Soma 350 mg on 12-22-2021. 15:14 Data reviewed: vital signs, nurses notes, radiologic studies, plain films. cp 15:14 Test interpretation: by ED physician or midlevel provider: plain radiologic studies. cp Counseling: I had a detailed discussion with the patient and/or guardian regarding: the historical points, exam findings, and any diagnostic results supporting the discharge/admit diagnosis, radiology results, the need for outpatient follow up, for definitive care, a orthopedic surgeon, to return to the emergency department if symptoms worsen or persist or if there are any questions or concerns that arise at home. 01/01 13:24 Order name: XRAY Hand LEFT 3 View; Complete Time: 15:13 cp 01/01 15:13 Interpretation: Report reviewed. cp 01/01 13:24 Order name: XRAY Forearm LEFT; Complete Time: 15:13 cp 01/01 15:14 Interpretation: Report reviewed. cp 01/01 13:24 Order name: XRAY Elbow LEFT 3 view; Complete Time: 15:13 cp 01/01 15:14 Interpretation: Report reviewed. cp 01/01 13:28 Order name: XRAY Foot LEFT 3 View; Complete Time: 15:13 cp 01/01 15:14 Interpretation: Reviewed report. cp 01/01 14:05 Order name: XRAY Tib Fib LEFT; Complete Time: 15:13 cp 01/01 15:37 Order name: Splint - Volar Wrist Splint; Complete Time: 15:37 em1 Administered Medications: 15:06 Drug: fentaNYL (PF) 25 mcg Route: IM; Site: right deltoid; tp1 16:30 Follow up: Response: Pain is decreased tp1 Disposition Summary: 01/01/22 15:06 Discharge Ordered Location: Home cp Problem: new cp Symptoms: have improved cp Condition: Stable cp Diagnosis - Left Distal Radius Fracture cp - Fall (on) (from) other stairs and steps, initial encounter cp - Pain in left ankle and joints of left foot cp Followup: cp - With: Mc Beckham MD - When: 2 - 3 days - Reason: left distal radius fracture Discharge Instructions: - Discharge Summary Sheet cp - Elastic Bandage and RICE Therapy cp - Wrist Fracture Treated With Immobilization cp - Ankle Pain cp - Foot Pain cp Forms: - Medication Reconciliation Form cp - Thank You Letter cp - Antibiotic Education cp - Prescription Opioid Use cp Addendum: 01/03/2022 08:05 STAFF ATTESTATION STATEMENT: I was immediately available onsite in the emergency s d2 department for consultation in the care of this patient. I did not see or examine this patient. Rossy Robles MD. Signatures: Dispatcher [employer] Omar Weiss em1 Gm Lopez PA PA cp Nayeli Hernandez RN RN Shauna Garcia RN RN tp1 Rossy Robles MD MD sd2 Corrections: (The following items were deleted from the chart) 01/01 15:37 14:53 Splint ordered. cp em1 14:53 Sling ordered. cp em1
[2022-01-01] MEDS ORDERED: FENTANYL CITR 100 MCG/2 ML ONE (15:11)
--- NOTE | 2022-01-01 15:12 | RAD REPORT ---
EXAM DESCRIPTION: Red Melendrez Left01/01/2022 2:44 pm CLINICAL HISTORY: Left leg pain status post injury FINDINGS: Intramedullary bianca and screws fuse have been placed into the tibia, talus and calcaneus. T here is fusion of the distal fibula/tibia, ankle hindfoot. Bones are osteoporotic. No acute fracture or dislocation seen
[2022-01-03 01:28] VITALS: TEMP 98.3
[2022-01-03 01:32] VITALS: BP 101/56; O2SAT 99
== END 2022-01-01 16:31 | disposition home or self-care (01) ==
LOC: ER 13:08
DX: S52.502A Unspecified fracture of the lower end of left radius, initial encounter for closed fracture (principal); M25.572 Pain in left ankle and joints of left foot; W10.8XXA Fall (on) (from) other stairs and steps, initial encounter
CPT/HCPCS: 96372; 99284; J3010

== ENCOUNTER 2022-01-11 13:48 | Emergency (ER) | payer SELFPAY ==
--- OUTSIDE RECORDS SUMMARY | 2022-01-11 14:03 | XMS REPORT | Continuity of Care Document ---
:1985 Author Organization [facility] t Address [address] [place] [address] Care Team Providers Name Role Phone LOUIS [...] Chanel Fabian MD Attending Clinician Doctor Unassigned, [place] Attending Clinician Unavailable MATIAS ROCK Attending Clinician Unavailable RUTHY DICK Attending Clinician Unavailable FLORENCIO LR Attending Clinician Unavailable Nicole Chappell Attending Clinician Unavailable DEBRA LÓPEZ Attending Clinician Unavailable Misael RINCON, Aracelis Attending Clinician Unavailable Samuel RINCON, Melinda [place] Attending Clinician Unavailable Peggy SANDRA, Jesse Monroe Attending Clinician [facility]ending [facility]ician Unavailable Roger MARIEE, Louis Guadalupe Attending Clinician Won SANDRA, Gilson Wren Attending Clinician [phone] Rocío SANDRA, Alla Lion Attending Clinician Dl SANDRA, Ree Attending Clinician Ultrasound, [facility] Attending Clinician Unavailable Risk, Paq-Bpapm-Dp/High Attending Clinician Unavailable Syd MARIEE, Max [place]field Attending Clinician [place]ident Attending Clinician Unavailable 2, [facility] Usg Room Attending Clinician Unavailable Aries SANDRA, Ruba Attending Clinician Faculty, Ad Beachjayesh [facility] Attending Clinician Unavailable Nickolas SANDRA, Lorrie [...] 2021-10-11 0 /d University of 00:00:00 00:00:00 [facility] Exposure to 2021-09-25 2021-10-05 Not sure [facility] SARS-CoV-2 (event) 00:00:00 09:00:00 [facility] Education 2021-08-24 2021-08-24 14 University 00:00:00 00:00:00 [facility] Tobacco Comment 2018-05-29 2018-05-29 1 pack per week; Uni versity of 00:00:00 00:00:00 quit 2016 [facility] Tobacco use and 2018-05-29 2018-05-29 Smokeless Universit y of exposure 00:00:00 00:00:00 tobacco [facility]-user [facility] smoked 2018-05-29 2018-05-29 Univers ity of current (pack per 00:00:00 00:00:00 [place] ) - Reported Branch Cigarette 2018-05-29 2018-05-29 University of pack-years 00:00:00 00:00:00 [facility] History of tobacco 2015-06-21 Cigarette Smoker University of use 00:00:00 [facility] Sex Ass[birth year] At [birth year] Universit y of 00:00:00 00:00:00 [facility] Smoking Status Start Date Stop Date Source Ex-smoker 2018-05-29 00:00:00 2018-05-29 00:00:00 Universi ty of [facility] Medications Ordered Filled Start Stop Current Ordering Indication Dosage Frequency Signature Comments Components Source Medication Medication Date Date Medication? Clinician (SIG) Name Name ferrous Yes 300mg 300 mg, Univer s sulfate 300 6-29 Oral, ity of mg (60 mg 00:58: Q48H, [place] iron)/5 mL 00 First dose Med ical solution (after Branch 300 mg last modificati on) on Mon10/12/21 at 1999, Until Discontinu ed, Routine ferrous Yes 300mg 300 mg, Univer s sulfate 300 -29 Oral, ity of mg (60 mg 00:58: Q48H, [place] iron)/5 mL 00 First dose Med ical solution (after Branch 300 mg last modificati on) on Mon10/12/21 at 1999, Until Discontinu ed, Routine polyethylen Yes [id number] 17g Take 1 Univers e glycol 6-29 Packet by ity of 3350 17 00:00: mouth [place] gram powder 00 daily. Medica l Branch polyethylen Yes [id number] 17g Take 1 Univers e glycol 6-29 Packet by ity of 3350 17 00:00: mouth [place] gram powder 00 daily. Medica l Branch polyethylen Yes [id number] 17g Take 1 Univers e glycol 6-29 Packet by ity of 3350 17 00:00: mouth [place] gram powder 00 daily. Medica l Branch polyethylen Yes [id number] 17g Take 1 Univers e glycol 6-29 Packet by ity of 3350 17 00:00: mouth [place] gram powder 00 daily. Medica l Branch polyethylen Yes [id number] 17g Take 1 Univers e glycol 6-29 Packet by ity of 3350 17 00:00: mouth [place] gram powder 00 daily. Medica l Branch polyethylen Yes [id number] 17g Take 1 Univers e glycol 6-29 [...] (Faculty): [facility] gabapentin 0 Yes [id number] 300mg Take 1 Univers 300 mg -28 [...] Indication s: acute pain methocarbam 2021-0 Yes [id number] 500mg Take 1 Univers oL 500 mg 6-28 tablet by ity o f tablet 00:00: mouth 4 [place] 00 (four) Medical times Branch daily as needed for Pain (scale 4-6). phenazopyri 0 Yes [id number] 200mg Take 1 Univers dine 200 mg 6-28 tablet by ity of tablet 00:00: mouth 3 [place] 00 (three) Medical times Branch daily. sennosides- 0 Yes [id number] 1{tbl} Take 1 Univers docusate 6-28 tablet by ity of sodium 00:00: mouth 2 [place] 8.6-50 mg 00 (two) Medical per tablet times Branch daily. simethicone 2022-0 Yes [id number] 160mg Take 2 Univers 80 mg 6-28 tablets by ity of chewable 00:00: mouth [place] tablet 00 after Medical meals and Branch at bedtime. gabapentin 2021-0 Yes [id number] 300mg Take 1 Univers 300 mg 6-28 [...] Indication s: acute pain methocarbam 202-0 Yes [id number] 500mg Take 1 Univers oL 500 mg 6-28 tablet by ity o f tablet 00:00: mouth 4 [place] 00 (four) Medical times Branch daily as needed for Pain (scale 4-6). phenazopyri 2021-0 Yes [id number] 200mg Take 1 Univers dine 200 mg 6-28 tablet by ity of tablet 00:00: mouth 3 [place] 00 (three) Medical times Branch daily. sennosides- 2021-0 Yes [id number] 1{tbl} Take 1 Univers docusate 6-28 tablet by ity of sodium 00:00: mouth 2 [place] 8.6-50 mg 00 (two) Medical per tablet times Branch daily. simethicone 2021-0 Yes [id number] 160mg Take 2 Univers 80 mg 6-28 tablets by ity of chewable 00:00: mouth [place] tablet 00 after Medical meals and Branch at bedtime. gabapentin 2-0 Yes [id number] 300mg Take 1 Univers 300 mg 6-28 [...] Indication s: acute pain methocarbam 2022-0 Yes [id number] 500mg Take 1 Univers oL 500 mg 6-28 tablet by ity o f tablet 00:00: mouth 4 [place] 00 (four) Medical times Branch daily as needed for Pain (scale 4-6). phenazopyri 2021-0 Yes [id number] 200mg Take 1 Univers dine 200 mg 6-28 tablet by ity of tablet 00:00: mouth 3 [place] 00 (three) Medical times Branch daily. sennosides- 2021-0 Yes [id number] 1{tbl} Take 1 Univers docusate 6-28 tablet by ity of sodium 00:00: mouth 2 [place] 8.6-50 mg 00 (two) Medical per tablet times Branch daily. simethicone 2021-0 Yes [id number] 160mg Take 2 Univers 80 mg 6-28 tablets by ity of chewable 00:00: mouth [place] tablet 00 after Medical meals and Branch at bedtime. gabapentin 2021-0 Yes [id number] 300mg Take 1 Univers 300 mg 6-28 [...] Indication s: acute pain methocarbam 2021-0 Yes [id number] 500mg Take 1 Univers oL 500 mg 6-28 tablet by ity o f tablet 00:00: mouth 4 [place] 00 (four) Medical times Branch daily as needed for Pain (scale 4-6). phenazopyri 2021-0 Yes [id number] 200mg Take 1 Univers dine 200 mg 6-28 tablet by ity of tablet 00:00: mouth 3 [place] 00 (three) Medical times Branch daily. sennosides- 2021-0 Yes [id number] 1{tbl} Take 1 Univers docusate 6-28 tablet by ity of sodium 00:00: mouth 2 [place] 8.6-50 mg 00 (two) Medical per tablet times Branch daily. simethicone 2021-0 Yes [id number] 160mg Take 2 Univers 80 mg 6-28 tablets by ity of chewable 00:00: mouth [place] tablet 00 after Medical meals and Branch at bedtime. gabapentin 2022-0 Yes [id number] 300mg Take 1 Univers 300 mg 6-28 [...] Indication s: acute pain methocarbam 2022-0 Yes [id number] 500mg Take 1 Univers oL 500 mg 6-28 tablet by ity o f tablet 00:00: mouth 4 [place] 00 (four) Medical times Branch daily as needed for Pain (scale 4-6). phenazopyri 2021-0 Yes [id number] 200mg Take 1 Univers dine 200 mg 6-28 tablet by ity of tablet 00:00: mouth 3 [place] 00 (three) Medical times Branch daily. sennosides- 2021-0 Yes [id number] 1{tbl} Take 1 Univers docusate 6-28 tablet by ity of sodium 00:00: mouth 2 [place] 8.6-50 mg 00 (two) Medical per tablet times Branch daily. simethicone 202-0 Yes [id number] 160mg Take 2 Univers 80 mg 6-28 tablets by ity of chewable 00:00: mouth [place] tablet 00 after Medical meals and Branch at bedtime. gabapentin 2021-0 Yes [id number] 300mg Take 1 Univers 300 mg 6-28 [...] Indication s: acute pain methocarbam 2022-0 Yes [id number] 500mg Take 1 Univers oL 500 mg 6-28 tablet by ity o f tablet 00:00: mouth 4 [place] 00 (four) Medical times Branch daily as needed for Pain (scale 4-6). phenazopyri Yes [id number] 200mg Take 1 Univers dine 200 mg 6-28 tablet by ity of tablet 00:00: mouth 3 [place] 00 (three) Medical times Branch daily. sennosides- Yes [id number] 1{tbl} Take 1 Univers docusate 6-28 tablet by ity of sodium 00:00: mouth 2 [place] 8.6-50 mg 00 (two) Medical per tablet times Branch daily. simethicone Yes [id number] 160mg Take 2 Univers 80 mg 6-28 tablets by ity of chewable 00:00: mouth [place] tablet 00 after Medical meals and Branch at bedtime. phenazopyri 2021- No 200mg 200 mg, U nivers dine 10-11 Oral, TID, ity of (PYRIDIUM) 19:00: 18:59 9 doses, [place] tablet 200 00 :00 First dose Med ical mg on Mon Branch 10/11/21 at 1400, Last dose on [place] 10/14/21 at 0800, Routine phenazopyri 2021- No 200mg 200 mg, U nivers dine 10-11 [...] E)) 00 First dose Medical chewable on [facility] Branch tablet 160 10/11/21 at mg 0915, Until Discontinu ed, Routine simethicone 0 Yes 160mg 160 mg, Un brayden (GAS RELIEF 10-11 Oral, ity of (SIMETHICON 14:15: PC+HS, [place] E)) 00 First dose Medical chewable on [facility] Branch tablet 160 10/11/21 at mg 0915, [...] QHSPRN, Eladio as 34 Starting Medical on [facility] 10/10/21 at 2202, Until Discontinu ed, Routine, Insomnia melatonin 0 Yes 3mg 3 mg, Univers (MELATIN) 10-11 Oral, ity of tablet 3 mg 03:02: QHSPRN, Eladio as 34 Starting Medical on [facility] 10/10/21 at 2202, Until Discontinu ed, Routine, Insomnia diphenhydrA 0 Yes 50mg 50 mg, [facility] 10-10 Intravenou ity of (BENADRYL) 20:50: s, QHSPRN, [place] injection 29 Starting Medica l 50 mg on [facility] 10/10/21 at 1550, Until Discontinu ed, Routine, Insomnia diphenhydrA 0 Yes 50mg 50 mg, [facility] 10-10 Intravenou ity of (BENADRYL) 20:50: s, QHSPRN, [place] injection 29 Starting Medica l 50 mg on [facility] 10/10/21 at 1550, Until Discontinu ed, Routine, [...] Medical mg last Branch modificati on) on [place] 10/10/21 at 1200, Until Discontinu ed, Routine HYDROmorpho 2021- No .2mg 0.2 mg, Un brayden ne 10-10 Slow IV ity of (DILAUDID) 15:55: 13:12 Push, [place] injection 26 :51 Q6HPRN, 5 Medic al 0.2 mg doses, Branch Starting on [place] 10/10/21 at 1055, Until 10/11/21 at 0812, Routine, Pain (scale 7-10)
U se approved by (Faculty): [facility] oxyCODONE 2021- No 5mg 5 mg, Univer s immediate 10-10 Oral, ity of release 15:54: 13:12 Q6HPRN, [place] tablet 5 mg 15 :12 Starting Medi frank on [place] Branch 10/10/21 at 1054, Until 10/11/21 at 0812, Routine, Pain (scale 4-6)
Fa culty member approving Restricted medication : NGOC QUINTEROS ALPRAZolam 2021- No .25mg 0.25 mg, U nivers (XANAX) 10-10 Oral, ity of tablet 0.25 01:00: 20:50 QHSPRN, [place] mg 00 :59 Starting Medical on [facility] Branch 10/09/21 at 2000, Until [place] 10/10/21 at 1550, SUSI, Insomnia magnesium 2021- [...] :40 CONTINUOUS Medical (DILAUDID) , Starting Bra deh BLAST FURNACE HELPER on 10/09/21 at 1145, Until 10/10/21 at 1055 acetaminoph 2021- No 650mg 650 mg, U nivers en 10-09 Oral, ity of (TYLENOL) 15:39: 15:55 Q6HPRN, [place] tablet 650 11 :40 Starting Medic al mg on Sat Branch 10/09/21 at 1039, Until 10/10/21 at 1055, Routine, Alternate with [place] for pain scale 4-6 HYDROmorphO 2021- No [...] 10-09 Oral, ity of sodium 14:00: DAILY, [place] (SENOKOT-S) 00 First dose Me dical 8.6-50 [...] Oral, ity of sodium 14:00: 12:21 DAILY, [place] (SENOKOT-S) 00 :42 First dose Me dical 8.6-50 mg on Sat Branch per tablet 10/09/21 at 1 tablet 0900, Until Discontinu ed, Routine HYDROcodone 2021- No 1{tbl} 1 tablet, Univers -acetaminop 10-09 Oral, ity of hen (NORCO) 13:39: 15:55 Q6HPRN, [place] 10-325 mg 28 :40 Starting Medica l tablet 1 on [facility] Branch tablet 10/09/21 at 0839, Until 10/10/21 at 1055, Routine, Pain (scale 7-10) ferrous 2021- No 300mg 300 mg, Unive rs sulfate 300 10-09 Oral, TID, i ty of mg (60 mg 13:00: 12:20 First dose [place] iron)/5 mL 00 :59 on [facility] Medical solution 10/09/[address] [facility] h 300 mg 0800, Until Discontinu ed, [...] per cuff. FENTanyl Yes 1000ug IV Univers BLAST FURNACE HELPER 1,000 10-08 Infusion, ity o f mcg in NaCl 18:45: CONTINUOUS [place] 0.9%(NS) 00 , Starting Medic al 100 mL RTU on Fri Branch 10/08/21 at 1345, Until Discontinu ed, SUSI FENTanyl 2021-0 2021- No 1000ug IV Univer s BLAST FURNACE HELPER 1,000 10-08 Infusion, ity of mcg in [...] 2021-0 2021- No 1000ug IV Univer s BLAST FURNACE HELPER 1,000 10-08 Infusion, ity of mcg in NaCl 10:45: 18:04 CONTINUOUS [place] 0.9%(NS) 00 :44 , Starting Medic al 100 mL RTU on Mon Branch 10/08/21 at 0545, Until Mon10/08/21 at 1304, SUSI ondansetron 2-0 Yes 4mg 4 mg, Slow Univers (ZOFRAN 10-08 IV Push, ity of (PF)) 09:47: Q6HPRN, [place] injection 4 52 Nausea and Me dical [...] 100 mg ity of capsule 04:41: capsule [place] 24 TAKE 1 Medical CAPSULE BY Branch [...] 01:00: First dose [place] mg 00 on [facility] 10/07/21 at [place] 1999, Until Discontinu ed, Routine gabapentin 2021-0 Yes 300mg 300 mg, Uni vers (NEURONTIN) 6-24 Oral, TID, it y of capsule 300 01:00: First dose [place] mg 00 on [facility] 10/07/21 at [place] 1999, Until Discontinu ed, Routine gabapentin 2-0 Yes 300mg 300 mg, Uni vers (NEURONTIN) 6-24 Oral, TID, it y of capsule 300 01:00: First dose [place] mg 00 on [facility] 10/07/21 at [place] 1999, Until Discontinu ed, Routine ibuprofen 2021-0 Yes ibuprofen Uni vers 800 mg 24 800 mg ity of tablet 00:39: tablet [place] 38 TAKE 1 Medical TABLET BY Branch [...] 100 mg ity of capsule 00:39: capsule [place] 38 TAKE 1 Medical CAPSULE BY Branch [...] [place] injection 21 :58 Q5MIN PRN, Medi frank 25 mcg 4 doses, Branch Starting on [...] of 0.9 % 20:50: 22:20 on [place] irrigation 00 :12 10/07/21 at [facility] ical solution 1550, Branch Until [place] 10/07/21 at 1720, Intra-op lidocaine-e 2021- No PRN, Unive rs pinephrine 10-07 Starting ity of (XYLOCAINE 20:49: 22:20 on [facility] s WITH 00 :12 10/07/21 at [facility] EPINEPHRINE 1549, Branch ) 1 Until [place] %-1:100,000 10/07/21 at injection 1720, Routine, Intra-op bupivacaine 2021- No PRN, Unive rs (preserv 10-07 Starting ity of free) 20:48: 22:20 on [facility] (SENSORCAIN 00 :12 10/07/21 at Sc dical E MPF) 0.25 1548, Branch % [...] ity o f injection 17:01: 21:01 INTRA [place] 00 :33 PROCEDURE, Medical Starting Branch on [...] Push, ONCE ity of 16:45: 21:01 INTRA [place] 00 :33 PROCEDURE, Medical Starting Branch on [place] 10/07/21 at 1145, Until [place] 10/07/21 at 1601, Routine, Intra-op HYDROmorphO 2021- No Slow IV Un brayden ne 10-07 Push, ONCE ity of (DILAUDID) 16:45: 21:01 INTRA [place] injection 00 :33 PROCEDURE, Medi frank Starting [...] it y of (iso-os) 15:55: 17:10 [facility] [place] (FLAGYL 50 :00 HOLDING Medical I.V.) RTU ONCE, 1 Branch IV infusion dose, 500 mg Starting on [place] 10/07/21 at 1055, Until [place] 10/07/21 at 1210, Administer over 75 Minutes, 100 mL
Reas on for Anti-Infec tive: Surgical Prophylaxi s
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
Duration of therapy: within 24 hours of [...] of tablet 00:00: mouth [place] 00 daily. [facility] Branch Immunizations Ordered Filled Immunization Date Status Comments [facility] e Immunization Name Name TDAP (ADACEL) 2018-10-15 Completed University of VACCINE 00:00:00 [facility] TDAP (ADACEL) 2018-10-15 Completed University of VACCINE 00:00:00 [facility] TDAP (ADACEL) 2018-10-15 Completed University of VACCINE 00:00:00 [facility] TDAP (ADACEL) 2018-10-15 Completed University of VACCINE 00:00:00 [facility] TDAP (ADACEL) 2018-10-15 Completed University of VACCINE 00:00:00 [facility] TDAP (ADACEL) 2018-10-15 Completed University of VACCINE 00:00:00 [facility] Branch TDAP (ADACEL) 2018-10-15 Completed University of VACCINE 00:00:00 [facility] Branch TDAP (ADACEL) 2018-10-15 Completed University of VACCINE 00:00:00 [facility] Branch TDAP (ADACEL) 2018-10-15 Completed University of VACCINE 00:00:00 [facility] Vital Signs Vital Name Observation Time Observation Value Comments Source Systolic blood 2021-10-12 16:39:00 121 mm[Hg] Univer sity of pressure [facility] Diastolic blood 2021-10-12 16:39:00 67 mm[Hg] Unive rsity of pressure [facility] Heart rate 2021-10-12 16:39:00 59 /min Universi ty of [facility] Body temperature 2021-10-12 16:39:00 37.28 Rahda Univ ersity of [facility] Respiratory rate 2021-10-12 16:39:00 18 /min Univ ersity of [facility] Oxygen saturation in 2021-10-12 16:39:00 97 /min University of Arterial blood by [place] Angstro Pulse oximetry Branch Body height 2021-10-10 13:00:00 162.6 cm Universi ty of [place] [facility] [place] Body weight 2021-10-10 13:00:00 83.7 kg Universi ty of [facility] BMI 2021-10-10 13:00:00 31.66 kg/m2 Universi ty [facility] Systolic blood 2021-10-08 06:29:00 100 mm[Hg] Univer sity of pressure [facility] Branch Diastolic blood 2021-10-08 06:29:00 60 mm[Hg] Unive rsity of pressure [facility] Heart rate 2021-10-08 06:29:00 73 /min [facility]i ty [facility] [place] [facility] Body temperature 2021-10-08 06:29:00 37 Radha Univ ersity of [place] [facility] Respiratory rate 2021-10-08 06:29:00 22 /min Univ ersity of [place] [facility] Oxygen saturation in 2021-10-08 06:29:00 100 /min University of Arterial blood by Mixers frank Pulse oximetry Branch Body weight 2021-10-08 05:40:00 88 kg Universi ty of [facility] BMI 2021-10-08 05:40:00 31.66 kg/m2 [facility] Body height 2021-10-07 05:00:00 162.6 cm [facility] Systolic blood 2021-10-07 21:15:00 118 mm[Hg] Univer sity of pressure [facility] Diastolic blood 2021-10-07 21:15:00 64 mm[Hg] Unive rsity of [facility] Heart rate 2021-10-07 21:15:00 76 /min [facility] Respiratory rate 2021-10-07 21:15:00 15 /min [facility] Oxygen saturation in 2021-10-07 21:15:00 100 /min [facility] Arterial blood by [facility] Pulse oximetry [place] Body temperature 2021-10-07 21:00:00 36.94 Radha [facility] 2021-10-07 05:00:00 162.6 cm [facility] Body weight 2021-10-06 20:20:00 75.4 kg [facility] BMI 2021-10-06 20:20:00 33.30 kg/m2 [facility] Procedures Procedure Date / Time Performing Clinician Source Performed CBC WITH DIFF 2021-10-12 11:42:00 Alison Zamorano [facility] URINALYSIS 2021-10-11 15:27:00 Alison Zamorano [facility] URINALYSIS 2021-10-11 15:27:00 Alison Zamorano [facility] URINE CULTURE 2021-10-11 15:27:00 Alison Zamorano [facility] CBC WITHOUT DIFF 2021-10-10 22:32:00 Yunier [facility] CBC WITHOUT DIFF 2021-10-10 22:32:00 Nicholas Faye [facility] PHOSPHORUS 2021-10-10 11:08:00 Nicholas Faye [facility] MAGNESIUM 2021-10-10 11:08:00 Yunier [facility] BASIC METABOLIC PANEL (NA, 2021-10-10 11:08:00 Nicholas Faye [facility] K, CL, CO2, GLUCOSE, BUN, Medica l Branch CREATININE, CA) CBC WITHOUT DIFF 2021-10-10 11:08:00 Yunier [facility] PHOSPHORUS 2021-10-10 11:08:00 Yunier, [facility] MAGNESIUM 2021-10-10 11:08:00 Yunier, [facility] BASIC METABOLIC PANEL (NA, 2021-10-10 11:08:00 Yunier Nicholas [facility] K, CL, CO2, GLUCOSE, BUN, Medica l Branch CREATININE, CA) CBC WITHOUT DIFF 2021-10-10 11:08:00 Yunier, [facility] CBC WITHOUT DIFF 2021-10-09 23:22:00 Yunier, [facility] CBC WITHOUT DIFF 2021-10-09 23:22:00 Yunier, [facility] CBC WITHOUT DIFF 2021-10-09 16:22:00 Yunier, [facility] CBC WITHOUT DIFF 2021-10-09 16:22:00 Yunier, [facility] TRANSFUSE PACKED RBC 2021-10-09 10:31:00 Monse [facility] [place] [facility] TRANSFUSE PACKED RBC 2021-10-09 10:31:00 Monse [facility] [place] [facility] PREPARE PACKED RBC 2021-10-09 10:06:26 [facility] PREPARE PACKED RBC 2021-10-09 10:06:26 adwoa [facility] PHOSPHORUS 2021-10-09 08:35:00 Jd Donahue [facility] MAGNESIUM 2021-10-09 08:35:00 [facility] (NA, 2021-10-09 08:35:00 Marcela Khan [facility] K, CL, CO2, GLUCOSE, BUN, Medica l Branch CREATININE, CA) CBC WITHOUT DIFF 2021-10-09 08:35:00 Bill [facility] PHOSPHORUS 2021-10-09 08:35:00 Jd Donahue [facility] MAGNESIUM 2021-10-09 08:35:00 Jd Donahue [facility] BASIC METABOLIC PANEL (NA, 2021-10-09 08:35:00 KhanMarcela [facility] [place] K, CL, CO2, GLUCOSE, BUN, Medica l Branch CREATININE, CA) CBC WITHOUT DIFF 2021-10-09 08:35:00 Bill [facility] CBC WITHOUT DIFF 2021-10-09 01:26:00 Bill [facility] CBC WITHOUT DIFF 2021-10-09 01:26:00 Bill [facility] BASIC METABOLIC PANEL (NA, 2021-10-09 00:09:00 Khan, [...] CA) CBC WITHOUT DIFF 2021-10-08 15:10:00 Carol [facility] [place] [facility] BASIC METABOLIC PANEL (NA, 2021-10-08 15:10:00 Yunier, Nicholas [facility] [place] K, CL, CO2, GLUCOSE, BUN, Medica l Branch CREATININE, CA) CBC WITHOUT DIFF 2021-10-08 15:10:00 Carol [facility] [place] [facility] BASIC METABOLIC PANEL (NA, 2021-10-08 15:10:00 Yunier, Nicholas [facility] [place] K, CL, CO2, GLUCOSE, BUN, Medica l Branch CREATININE, CA) CBC WITHOUT DIFF 2021-10-08 15:10:00 [facility]EL 20 + LACTIC ACID 2021-10-08 10:24:00 Dalia Carson [facility] AC PANEL 20 + LACTIC ACID 2021-10-08 10:24:00 Dalia Carson [facility] AC PANEL 20 + LACTIC ACID 2021-10-08 10:24:00 Dalia Carson [facility] PHOSPHORUS 2021-10-08 10:20:00 [facility] 2021-10-08 10:20:00 Yamileth [facility] HEPATIC FUNCTION PANEL 2021-10-08 10:20:00 Yamileth [facility] ([id number]) (ALB,T.PRO,BILI Medical Branch T,BU/BC,ALT,AST,ALK PHOS) BASIC METABOLIC PANEL (NA, 2021-10-08 10:20:00 Dalia Carson [facility] K, CL, CO2, GLUCOSE, BUN, Medica l Branch CREATININE, CA) CBC WITH DIFF 2021-10-08 10:20:00 Alonso [facility] GLYCOSYLATED HEMOGLOBIN 2021-10-08 10:20:00 [facility] PROTHROMBIN TIME / INR 2021-10-08 10:20:00 Alonso Oxana [facility] ACTIVATED PARTIAL THRMPLAS 2021-10-08 10:20:00 Oxana Gupta [facility] TASHA [facility] FIBRINOGEN 2021-10-08 10:20:00 Alonso Oxana [facility] PHOSPHORUS 2021-10-08 10:20:00 Yamileth [facility] MAGNESIUM 2021-10-08 10:20:00 Yamileth [facility] HEPATIC FUNCTION PANEL 2021-10-08 10:20:00 Yamileth Dalia [facility] ([id number]) (ALB,T.PRO,BILI [facility] T,BU/BC,ALT,AST,ALK PHOS) BASIC METABOLIC PANEL (NA, 2021-10-08 10:20:00 Yamileth Dalia [facility] K, CL, CO2, GLUCOSE, BUN, Medica l Branch CREATININE, CA) CBC WITH DIFF 2021-10-08 10:20:00 Alonso [facility] GLYCOSYLATED HEMOGLOBIN 2021-10-08 10:20:00 Yamileth [facility] (A1C) [facility] PROTHROMBIN TIME / INR 2021-10-08 10:20:00 Oxana [facility] ACTIVATED PARTIAL THRMPLAS 2021-10-08 10:20:00 Oxana Gupta [facility] FIBRINOGEN 2021-10-08 10:20:00 Oxana Gupta [facility] PHOSPHORUS 2021-10-08 10:20:00 Yamileth [facility] MAGNESIUM 2021-10-08 10:20:00 [facility]EL 2021-10-08 10:20:00 [id number] (ALB,T.PRO,BILI [facility] T,BU/BC,ALT,AST,ALK PHOS) BASIC METABOLIC PANEL (NA, 2021-10-08 10:20:00 Yamileth [facility] K, CL, CO2, GLUCOSE, BUN, Medica l Branch CREATININE, CA) CBC WITH DIFF 2021-10-08 10:20:00 Oxana Gupta [facility] GLYCOSYLATED HEMOGLOBIN 2021-10-08 10:20:00 [facility] PROTHROMBIN TIME / INR 2021-10-08 10:20:00 Oxana [facility] ACTIVATED PARTIAL THRMPLAS 2021-10-08 10:20:00 Oxana Gupta [facility] FIBRINOGEN 2021-10-08 10:20:00 Oxana Gupta [facility] PREPARE PLASMA 2021-10-08 09:48:16 Florencio Lr [facility] PREPARE PLASMA 2021-10-08 09:48:16 Florencio Lr [facility] PREPARE PLASMA 2021-10-08 09:48:16 Florencio Lr [facility] PREPARE PACKED RBC 2021-10-08 09:47:11 Florencio Lr [facility] PREPARE PACKED RBC 2021-10-08 09:47:11 [facility] 2021-10-08 09:47:11 Florencio Lr [facility] HB ECG ROUTINE & RHYTHM 2021-10-08 09:44:02 Yamileth [facility] HB ECG ROUTINE & RHYTHM 2021-10-08 09:44:02 Yamileth [facility] TRANSFUSE CRYOPRECIPITATE 2021-10-08 08:58:00 [facility] ([place] ) [facility] TRANSFUSE CRYOPRECIPITATE 2021-10-08 08:58:00 [facility] ([place] ) [facility] TRANSFUSE CRYOPRECIPITATE 2021-10-08 08:58:00 [facility] ([place] ) [facility] ABG+COOX+NA+K+GLU+CA2+ 2021-10-08 08:55:00 [facility] ABG+COOX+NA+K+GLU+CA2+ 2021-10-08 08:55:00 Be [facility] PROTHROMBIN TIME / INR 2021-10-08 08:50:00 Judi Merino [facility] PROTHROMBIN TIME / INR 2021-10-08 08:50:00 Judi Merino [facility] PROTHROMBIN TIME / INR 2021-10-08 08:50:00 Judi Merino U [facility] TRANSFUSE PLASMA 2021-10-08 08:31:00 Michael Andrews [facility] TRANSFUSE PLASMA 2021-10-08 08:31:00 Michael Andrews [facility] TRANSFUSE PLASMA 2021-10-08 08:31:00 Michael Andrews [facility] TRANSFUSE PACKED RBC 2021-10-08 08:28:00 Michael Andrews [facility] TRANSFUSE PACKED RBC 2021-10-08 08:28:00 Michael [facility] TRANSFUSE PACKED RBC 2021-10-08 08:28:00 Michael Andrews [facility] ABG+COOX+NA+K+GLU+CA2+ 2021-10-08 08:01:00 Florencio Lr [facility] ABG+COOX+NA+K+GLU+CA2+ 2021-10-08 08:01:00 Florencio Lr [facility] TRANSFUSE PLASMA (IN ML) 2021-10-08 07:55:00 Michael Andrews [facility] TRANSFUSE PLASMA (IN ML) 2021-10-08 07:55:00 Michael Andrews [facility] TRANSFUSE PACKED RBC 2021-10-08 07:50:00 Michael Andrews [facility] TRANSFUSE PACKED RBC 2021-10-08 07:50:00 Michael [facility] CBC WITHOUT DIFF 2021-10-08 07:46:00 Judi Merino [facility] EXTRA TUBE SST 2021-10-08 07:46:00 Florencio Lr [facility] CBC WITHOUT DIFF 2021-10-08 07:46:00 Judi Merino G [facility] EXTRA TUBE SST 2021-10-08 07:46:00 Florencio Lr [facility] CBC WITHOUT DIFF 2021-10-08 07:46:00 MerinoJudi G [facility] EXTRA TUBE SST 2021-10-08 07:46:00 Florencio Lr [facility] ABG+COOX+NA+K+GLU+CA2+ 2021-10-08 07:43:00 Florencio Lr [facility] ABG+COOX+NA+K+GLU+CA2+ 2021-10-08 07:43:00 Florencio Lr [facility] TRANSFUSE PLASMA (IN ML) 2021-10-08 07:36:00 Michael Andrews [facility] TRANSFUSE PLASMA (IN ML) 2021-10-08 07:36:00 Michael Andrews [facility] FIBRINOGEN 2021-10-08 07:32:00 MerinoJudi [facility] FIBRINOGEN 2021-10-08 07:32:00 Merino Judi G [facility] FIBRINOGEN 2021-10-08 07:32:00 Merino, Judi [facility] TRANSFUSE PACKED RBC 2021-10-08 07:30:00 LySunViviana [facility] TRANSFUSE PLASMA (IN ML) 2021-10-08 07:30:00 Michael Andrews [facility] TRANSFUSE PACKED RBC 2021-10-08 07:30:00 LySunViviana [facility] TRANSFUSE PLASMA (IN ML) 2021-10-08 07:30:00 Michael Andrews [facility] PREPARE CRYOPRECIPITATE 2021-10-08 07:24:24 Florencio Lr [facility] PREPARE CRYOPRECIPITATE 2021-10-08 07:24:24 Florencio Lr [facility] PREPARE CRYOPRECIPITATE 2021-10-08 07:24:24 Florencio Lr [facility] TRANSFUSE PACKED RBC 2021-10-08 07:22:00 Michael Andrews [facility] TRANSFUSE PACKED RBC 2021-10-08 07:22:00 Michael Andrews [facility] TRANSFUSE PACKED RBC 2021-10-08 07:19:00 Michael Andrews [facility] TRANSFUSE PACKED RBC 2021-10-08 07:19:00 Michael Andrews [facility] ABG+COOX+NA+K+GLU+CA2+ 2021-10-08 07:13:[address] [facility]G+COOX+NA+K+GLU+CA2+ 2021-10-08 07:13:[address] [facility] TRAN[facility]ASMA (IN ML) 2021-10-08 07:08:00 Michael Andrews [facility] TRANSFUSE PLASMA (IN ML) 2021-10-08 07:08:00 Michael Andrews [facility] TRANSFUSE PLATELETS 2021-10-08 06:55:00 [facility] 2021-10-08 06:55:00 [facility] PREPARE PLATELETS 2021-10-08 06:44:36 Florencio Lr [facility] PREPARE PLATELETS 2021-10-08 06:44:36 Florencio Lr [facility] PREPARE PLATELETS 2021-10-08 06:44:36 [facility]PLOR[facility] LAPAROTOMY 2021-10-08 06:24:00 Judi Merino [facility] EVACUATION HEMATOMA PELVIC 2021-10-08 06:24:00 Judi Merino [facility] EXPLORATORY LAPAROTOMY 2021-10-08 06:24:00 Judi Merino [facility] EVACUATION HEMATOMA PELVIC 2021-10-08 06:24:00 Judi Merino [facility] FIBRINOGEN 2021-10-08 06:17:00 Darryl [facility] FIBRINOGEN 2021-10-08 06:17:00 Michael Andrews [facility] FIBRINOGEN 2021-10-08 06:17:00 [facility] PANEL 21 + LACTIC ACID 2021-10-08 06:14:00 Shazia [facility] AC PANEL 21 + LACTIC ACID 2021-10-08 06:14:00 [facility] PANEL 21 + LACTIC ACID 2021-10-08 06:14:00 Elizabeth Mccray [facility] BASIC METABOLIC PANEL (NA, 2021-10-08 06:12:00 Yadira Mccray [facility] K, CL, CO2, GLUCOSE, BUN, Medica l Branch CREATININE, CA) CBC WITH DIFF 2021-10-08 06:12:00 Elizabeth Mccray [facility] PROTHROMBIN TIME / INR 2021-10-08 06:12:00 [facility]IV[facility] PARTIAL THRMPLAS 2021-10-08 06:12:00 Yadira Mccray [facility] FIBRINOGEN 2021-10-08 06:12:00 Elizabeth Mccray [facility] BASIC METABOLIC PANEL (NA, 2021-10-08 06:12:00 Yadira Mccrya [facility] K, CL, CO2, GLUCOSE, BUN, Medica l Branch CREATININE, CA) CBC WITH DIFF 2021-10-08 06:12:00 Elizabeth Mccray [facility] PROTHROMBIN TIME / INR 2021-10-08 06:12:00 Elizabeth Mccray [facility] ACTIVATED PARTIAL THRMPLAS 2021-10-08 06:12:00 Yadira Mccray [facility] FIBRINOGEN 2021-10-08 06:12:00 Elizabeth Mccray [facility] BASIC METABOLIC PANEL (NA, 2021-10-08 06:12:00 Yadira Mccray [facility] K, CL, CO2, GLUCOSE, BUN, Medica l Branch CREATININE, CA) CBC WITH DIFF 2021-10-08 06:12:00 Elizabeth Mccray [facility] PROTHROMBIN TIME / INR 2021-10-08 06:12:00 [facility]IVATED PARTIAL THRMPLAS 2021-10-08 06:12:00 Yadira Mccray [facility] FIBRINOGEN 2021-10-08 06:12:00 Elizabeth Mccray [facility] EXTERNAL PROVIDER RECORDS 2021-10-08 05:01:00 Doctor Unassigned, [facility] Name [facility] EXTERNAL PROVIDER RECORDS 2021-10-08 05:01:00 Doctor Unassigned, [facility] Name [facility] EXTERNAL PROVIDER RECORDS 2021-10-08 05:01:00 Doctor Unassigned, [facility] Name [facility] TRANSFUSE PACKED RBC 2021-10-08 04:45:00 Ly, [facility] TRANSFUSE PACKED RBC 2021-10-08 04:45:00 Ly, [facility] MAGNESIUM 2021-10-08 04:36:00 Ly, [facility] BASIC METABOLIC PANEL (NA, 2021-10-08 04:36:00 Ly, Viviana [facility] [place] K, CL, CO2, GLUCOSE, BUN, Medica l Branch CREATININE, CA) CBC WITH DIFF 2021-10-08 04:36:00 Ly, [facility] MAGNESIUM 2021-10-08 04:36:00 Ly, [facility] BASIC METABOLIC PANEL (NA, 2021-10-08 04:36:00 Ly, [facility] [place] K, CL, CO2, GLUCOSE, BUN, Medica l Branch CREATININE, CA) CBC WITH DIFF 2021-10-08 04:36:00 Ly, [facility] MAGNESIUM 2021-10-08 04:36:00 Ly, [facility] BASIC METABOLIC PANEL (NA, 2021-10-08 04:36:00 Ly, [facility] [place] K, CL, CO2, GLUCOSE, BUN, Medica l Branch CREATININE, CA) CBC WITH DIFF 2021-10-08 04:36:00 Ly, [facility] PREPARE PACKED RBC 2021-10-08 04:27:22 Ly, [facility] PREPARE PACKED RBC 2021-10-08 04:27:22 Ly, [facility] PREPARE PACKED RBC 2021-10-08 04:27:22 Ly, Viviana [facility] POCT GLUCOSE (AUTOMATED) 2021-10-08 03:51:00 Florencio Lr [facility] POCT GLUCOSE (AUTOMATED) 2021-10-08 03:51:00 Florencio Lr [facility] POCT GLUCOSE (AUTOMATED) 2021-10-08 03:51:[address] [facility] CBC WITH DIFF 2021-10-07 23:55:00 Hilario [facility] CBC WITH DIFF 2021-10-07 23:55:00 [place] [facility] CBC WITH DIFF 2021-10-07 23:55:00 [facility] RBC 2021-10-07 21:08:55 Naga [facility] PREPARE PACKED RBC 2021-10-07 21:08:55 Naga [facility] PREPARE PACKED RBC 2021-10-07 21:08:55 Naga [facility] SURGICAL PATHOLOGY EXAM 2021-10-07 20:37:[address] [facility] TRANSF[facility]ACKED RBC 2021-10-07 17:19:00 Ronald [facility] TRANSFUSE PACKED RBC 2021-10-07 17:19:00 [facility] TRANSFUSE PACKED RBC 2021-10-07 17:19:00 Josep Cardenas [facility] INTUBATION 2021-10-07 16:49:00 Josep Cardenas [facility] LAPAROSCOPIC TOTAL 2021-10-07 16:12:00 Florencio Lr [facility] ABDOMINAL HYSTERECTOMY [facility] LAPAROSCOPIC 2021-10-07 16:12:00 Florencio Lr [facility] SALPINGO-OOPHORECTOMY Medical Br anch CYSTOSCOPY 2021-10-07 16:12:00 Florencio Lr [facility] LAPAROSCOPIC TOTAL 2021-10-07 16:12:00 Florencio Lr [facility] ABDOMINAL HYSTERECTOMY [facility] LAPAROSCOPIC 2021-10-07 16:12:00 Florencio Lr [facility] SALPINGO-OOPHORECTOMY Medical Br anch CYSTOSCOPY 2021-10-07 16:12:00 Florencio Lr [facility] COMP. METABOLIC PANEL 2021-10-07 11:41:00 Alison Zamorano [facility] ([id number]) [facility] COMP. METABOLIC PANEL 2021-10-07 11:41:00 Alison Zamorano [facility] ([id number]) [facility] COMP. METABOLIC PANEL 2021-10-07 11:41:00 Alison Zamorano [facility] ([id number]) [facility] CBC WITH DIFF 2021-10-07 00:30:00 Alison Zamorano [facility] PROTHROMBIN TIME / INR 2021-10-07 00:30:00 Alison Zamorano [facility] ACTIVATED PARTIAL THRMPLAS 2021-10-07 00:30:00 [facility]IB[facility] 2021-10-07 00:30:00 Alison Zamorano [facility] CBC WITH DIFF 2021-10-07 00:30:00 Alison Zamorano [facility] PROTHROMBIN TIME / INR 2021-10-07 00:30:00 Alison [facility] ACTIVATED PARTIAL THRMPLAS 2021-10-07 00:30:00 [facility] FIB[facility] 2021-10-07 00:30:00 Alison Zamorano [facility] CBC WITH DIFF 2021-10-07 00:30:00 Alison Zamorano [facility] PROTHROMBIN TIME / INR 2021-10-07 00:30:00 Alison Zamorano [facility] ACTIVATED PARTIAL THRMPLAS 2021-10-07 00:30:00 [facility] FIBR[facility]EN 2021-10-07 00:30:00 Lamiman, Alison [facility] HB ABO GROUPING 2021-10-06 21:00:00 [facility] HB ABO GROUPING 2021-10-06 21:00:00 [facility] HB ABO GROUPING 2021-10-06 21:00:00 [facility] POCT TEST 2021-10-06 20:12:00 [facility] 2021-10-06 20:12:00 [facility] POCT TEST 2021-10-06 20:12:00 Stevan Eli [facility] COVID-19 (ID NOW RAPID 2021-10-06 20:09:00 Florencio Lr [facility] TESTING) Medical Branch LAB ONLY COVID 2021-10-06 20:09:00 Florencio Lr [facility] COVID-19 (ID NOW RAPID 2021-10-06 20:09:00 Florencio Lr [facility] TESTING) Medical Branch LAB ONLY COVID 2021-10-06 20:09:00 Florencio Lr [facility] COVID-19 (ID NOW RAPID 2021-10-06 20:09:00 Florencio Lr [facility] TESTING) Medical Branch LAB ONLY COVID 2021-10-06 20:09:00 Florencio Lr [facility] HOSPITAL ADMISSION 2021-10-06 05:01:00 Doctor Unassigned, [facility] [place] [facility] Encounters Start End Encounter Admission Attending Care Care Encounter Source Date/Time Date/Time Type Type Clinicians Facility Department ID 2020-05-03 Inpatient CATALINO Cummins [facility] [id number] [facility] 03:53:[address] [place] [address]'s [facility] 2021-12-09 2021-12-09 Outpatient R [facility] [id number] [facility] 09:30:00 09:30:00 [id number] [facility] 2021-11-16 2021-11-16 Outpatient R [facility] [id number] Univers 13:00:00 13:00:[id number] [facility] 2021-11-03 2021-11-03 Telephone Claudy UNIVERSIT 1.2.840.114 [id number] Univers 00:00:00 00:00:00 Ruthy Y HEALTH [id number] i ty [place] [id number] [facility] 113 Branch 2021-10-29 2021-10-29 Outpatient R [facility] [id number] Univers 14:15:00 14:15:[id number] [facility] 2021-10-29 2021-10-29 Outpatient R [facility] [id number] Univers 14:15:00 14:15:[address] [facility] 2021-10-21 2021-10-21 Outpatient R [facility] [id number] Univers 14:45:00 14:45:[id number] [facility] 2021-10-21 2021-10-21 [facility] [id number] Univers 14:45:00 14:45:[address] [facility] 2021-10-21 2021-10-21 Telephone Pgy3 UNIVERSIT 1.2.840.114 [id number] Univers 00:00:00 00:00:00 Y HEALTH [id number] i ty [place] [id number] [facility] 113 Branch 2021-10-13 2021-10-13 Transition MARY Richard 1.2.840.114 [id number] Univers 00:00:00 00:00:00 of Care Sandi ARCE [id number] [place] [id number] [facility] 403 Branch 2021-10-13 2021-10-13 Transition MARY Richard 1.2.840.114 [id number] Univers 00:00:00 00:00:00 of Care Sandi ARCE [id number] ity of [place] [id number] [facility] 403 Branch 2021-10-06 2021-10-12 Inpatient R SVEN, [facility] [id number] Univers 14:42:00 14:14:00 NGOC ity of [facility] 2021-10-06 2021-10-12 Hospital [facility] OC 1.2. 840.114 [id number] Univers 14:42:00 14:14:00 Encounter Ngoc Quinteros [id number] ity of [facility] 4.2.7.2.686 Eladio as [id number] [facility] 091 Branch 2021-10-08 2021-10-08 Surgery OC Merino 1.2.840.114 [id number] Univers 01:30:00 03:41:00 Judi WOOD [id number] it y of [facility] 4.2.7.2.686 Eladio as [id number] [facility] 103 Branch 2021-10-07 2021-10-07 Surgery OC Lr 1.2.840.114 [id number] Univers 11:40:00 16:17:00 Florencio CHAUDHARIY 350.1.13.10 it y of [facility] 4.2.7.2.686 Eladio as [id number] [facility] 103 Branch 2021-10-07 2021-10-07 Anesthesia Johanny Martel 1.2.840.114 [id number] Univers 11:39:00 15:55:00 Event Chanel Fabian 350.1.13.10 ity of [facility] 4.2.7.2.686 Eladio as [id number] [facility] 103 Branch 2021-10-06 2021-10-06 Orders Doctor ABRAHAM 1.2.840.114 [id number] Univers 00:00:00 00:00:00 Only Unassigned, [place] [id number] ity of [place] [facility] 4.2.7.2.686 Eladio as [id number] [facility] 009 Branch 2021-09-272021-10-02 Inpatient X ANTHONY, [facility] [id number] Univers 20:32:00 05:30:00 MATIAS [facility] 2021-09-14 2021-09-14 Outpatient R CLAUDY, [facility] [id number] Univers 14:00:00 14:00:00 RUTHY [facility] 2021-09-14 2021-09-14 Outpatient R [facility] [id number] Univers 13:30:00 13:30:00 [id number] [facility] 2021-08-24 2021-08-26 Inpatient X BE, [facility] [id number] Univers 03:17:00 15:30:00 MATIAS [facility] 2021-05-04 2021-05-05 Emergency EM [place], [facility] MEDI.01 [id number] [facility] 01:14:00 14:01:00 [facility] 2020-08-25 2020-08-26 [id number] 02:37:00 18:00:00 DEBRA Gerardo Oleary [facility] 2019-07-13 2019-07-13 Nurse JARAD Douglas 1.2.840.114 [id number] 00:00:00 00:00:00 Triage Aracelis [place] 350.1.13.10 [facility] 4.2.7.2.686 [id number] 2019-07-13 2019-07-13 Nurse JARAD Baker 1.2.840.114 [id number] 00:00:00 00:00:00 Triage Melinda Leta WOOD 350.1.13.10 [facility] 4.2.7.2.686 [id number] 2018-12-31 2019-01-01 Hospital JARAD Woods 1.2.441.981 [id number] 21:55:55 14:19:00 Encounter Jesse WOOD 350.1.13.10 [place] 4.2.7.2.686 [id number] 2018-12-31 2018-12-31 Nurse Visit, [facility] 1.2.840.114 [id number] 15:10:27 15:53:28 Visit [facility] MOLDING UTILITY WORKER 350.1.13.10 Nurse REGIONAL 4.2.7.2.686 MATERNAL [id number] & CHILD 107 [facility] 2018-12-31 2018-12-31 [facility]phone [facility] 1.2.840.114 [id number] 00:00:00 00:00:00 Louis Guadalupe MOLDING UTILITY WORKER 350.1.13.10 [facility] 4.2.7.2.686 MATERNAL [id number] & CHILD 107 [facility] 2018-12-31 2018-12-31 Telephone WonJARAD aranda 1.2.840.114 [id number] 00:00:00 00:00:00 Gilson WOOD 350.1.13.10 [place] [address].2.7.2.686 [id number] 2018-12-28 2018-12-29 Emergency Poornimane, [facility] 1.2.194.374 [id number] 19:29:15 00:59:00 Alla Lopez 350.1.13.10 [place] [address].2.7.2.686 [place] [id number] 2018-12-28 2018-12-28 Nurse Visit, [facility] 1.2.840.114 [id number] 12:55:55 13:47:08 Visit [facility] MOLDING UTILITY WORKER 350.1.13.10 Nurse [facility] 4.2.7.2.686 MATERNAL [id number] & CHILD 107 [facility] 2018-12-20 2018-12-24 [facility] JARAD Lizama 1.2.840.114 [id number] 18:42:00 13:40:00 Encounter Ree WOOD 350.1.13.10 [place] 4.2.7.2.686 [id number] 2018-12-20 2018-12-20 National Account Manager Ultrasound, [facility] 1.2.840.114 [id number] 11:12:37 11:42:37 [facility] MOLDING UTILITY WORKER 350.1.13.10 [facility] 4.2.7.2.686 MATERNAL [id number] & CHILD 369 [facility] 2018-12-20 2018-12-20 Routine Risk, [facility] 1.2.840.114 [id number] 10:20:16 11:05:03 Ang-Rmchp-N MOLDING UTILITY WORKER 350.1.13.10 Visit p/High [facility] 4.2.7.2.686 MATERNAL [id number] & CHILD 107 [facility] 2018-12-18 2018-12-18 Routine Velarde, [facility] 1.2.840.114 [id number] 12:50:29 14:00:55 Roshunda R MOLDING UTILITY WORKER 350.1.13.10 Visit REGIONAL 4.2.7.2.686 MATERNAL [id number] & CHILD 107 [facility] 2018-12-13 2018-12-13 Routine Pool, [facility] 1.2.840.114 [id number] 13:28:19 14:24:11 Resident Y HEALTH 350.1.13.10 Visit [facility] 4.2.7.2.686 [id number] 2018-12-13 2018-12-13 National Account Manager 2, [facility] 1.2.840.11 [id number] 12:48:28 13:23:20 Visit Us Room Y HEALTH 350.1.13.10 [facility] 4.2.7.2.686 [id number] 2018-12-13 2018-12-13 Orders Doctor JARAD 1.2.840.114 [id number] 00:00:00 00:00:00 Only Unassigned, [place] 350.1.13.10 [place] [facility] 4.2.7.2.686 [id number] 2018-12-11 2018-12-11 Case JARAD Chris 1.2.840.114 [id number] 00:00:00 00:00:00 Management Ruba [place] 350.1.13.10 HOSPITAL 4.2.7.2.686 [id number] 2018-12-10 2018-12-10 Routine Faculty, [facility] 1.2.840.114 [id number] 10:35:35 11:46:44 Ang Rmchp MOLDING UTILITY WORKER 350.1.13.10 Visit [facility] 4.2.7.2.686 MATERNAL [id number] & CHILD 107 [facility] 2018-12-06 2018-12-06 National Account Manager Ultrasound, [facility] 1.2.840.114 [id number] 11:40:06 12:10:06 Visit Ang-Mfm MOLDING UTILITY WORKER 350.1.13.10 [facility] 4.2.7.2.686 MATERNAL [id number] & CHILD 369 [facility] 2018-12-06 2018-12-06 Routine Risk, [facility] 1.2.840.114 [id number] 10:02:15 11:39:46 Ang-Rmchp-N MOLDING UTILITY WORKER 350.1.13.10 Visit p/High [facility] 4.2.7.2.686 MATERNAL [id number] & CHILD 107 [facility] 2018-12-03 2018-12-03 [facility] 1.2.840.114 [id number] 13:57:00 16:45:00 Encounter [facility] [id number] [place] [id number] [place] [id number] 3 2018-12-03 2018-12-03 Routine Faculty, [facility] 1.2.840.114 [id number] 09:27:42 10:36:46 Ang Rmchp [employer]ING [employer] WORKER [id number] Visit [facility] [id number] MATERNAL [id number] & CHILD 107 [facility] 2018-11-29 2018-11-29 Routine Risk, [facility] 1.2.840.114 [id number] 12:45:37 13:38:16 Ang-Rmchp-N M[employer]ING [employer] WORKER [id number] Visit p/High [facility] [id number] MATERNAL [id number] & CHILD 107 [facility] Results Test Description Test Time Test Comments Results Result Comments Source SURGICAL PATHOLOGY EXAM 2021-10-12 16:25:43 Test Item Value Reference Range Interpretation Comme nts Case Report (test code = 1880144619) Surgical Pathology ?Case: [id number] ? Authorizing Provider: ?Florencio Lr MD ? Collected: ? 10/07/2021 1537 ?Ordering Location: ? ? [facility] OR ? Received: ?10/07/2021 1807 ? Department ? Pathologist: ? Oscar, Catherine Gutiérrez, ? MD ? Specimen: ? ?UTERINE BODY W/OVARY AND FALLOPIAN TUBE, LEFT, Left ovary ? Final Diagnosis (test code = r2jbePRkTXMuf2ovJNJjbVOuOkQaOwUhBzCcTs [id number]) dWMxIHtccnRmMVxlcGljOTYwMlxhbnNpXHNwbHRw F2OqjzxhAPqtEW6gTS6vyJegcSAnyZWjKFVeLxRt w8ajh686xXSor8cvCUQRzcwaeHo1wZfoQ58na9J0 IsylI36exUPiGDX6IQHoTETtuTCuNWZzHSX6OJNv uXBfV7teHMNiYG7zfskjFVzePJguJWQxnNH8VVPm lLVwK9NdRKElEOimETItaxr3ZkDzUv2duDZvyTgp MFxwYXJkXHBsYWluXGZzMjBccGFyIEEuIFVURVJV UywgQklMQVRFUkFMIEZBTExPUElBTiBUVUJFUywg TWIGXZEEBqYRIXhzNWzHBEYSZQNHZ46FXARNSNrZ PEHURJciY7KNKOuFB7OFRF5PHURDMoNsAPEAWKES P1GDN8OWB7KSKLv5HWdcFSDpYIBtQQ2vB8FAWwgV BhPHM2PWYGFKCoBXXC6RUAZFL81bH9qSGTWRPJQO UvDGRA6DFNQVORYXFxHFGTyLUZaQUjMOQBMCHXQq QIWpmdOqGDRjGFKGKfQPNHGHEdbNPKmuB7IQUtTZ T6ULONBKGJNMNBfwPESaHYOrFY0cXBpFHHWQFyuE UXpiSHALCa9TBR8RKKZurRGkCVInKKOgKTHEYNtE XOyULzRCDUFBCcldZAAWBOUPUwWGUPPIB4WsaFEs ZVFpCECoGVsJKvXrY9FNPek6MCWXM4SMObJIH0mF SUNMRVMgXHBhciAgICAgLSBJTlRSQUFSVEVSSUFM EEWQFo7NZBvWEFeZPaBHRMTFRybPHIBWJDRUTYrZ SFSJRQQcavtsYPKgVRPqhf05FGX2VvPxv5G3WLQg ZzIiSSGyGA1ziSzyFWHyCX8tXIMaS9torI0guxu7 GoKjDGFwIbS4SGKtcmY2Ltx8HPVsRSgvm8pra4Fj I5VcjAVttQr8u0szZBUhXeD5sVGqXOdpP1wdjdPq iDFvAFWrDVa1yYqzHuSuTMQtb8fmcdPwEiDkPHWq GDQtRYEkhZginaf9eW64WYDsdI8mnBUsPRnuiyGx OuJ8UPzsVBPrWtO1LAQrnMKlXTVcU8lrBDPbNClx EHIrXAzlhBMjLHP6gPtfe6O2rHYfcMXxkUpwPrLl IaEcVRJIo6VsQBd6nLxbI6TmRQAzPhD6gCOxHWBk ESyiHAZnHQToroD0qZ74LRjasnH9xGAqg7Zcv46w q904pX5ecVPxADD9LKPiSFQdtRHmJAVrJMV9ZQDm yELbP1pfWMJwIZ1ffixqGLxuRDdsTKJquYJ1XIYy vHEdN1CbWWDzHIsyAVQlqcf3BqViVb8ovSCvwUng HHlic5dbv4tsfCWfVeq6SXZeLpYbEkgbDMsvi1Pg v5ivNSQowj9rNWV7jXAtzRpxw2R9nUTeHETghEYj tgXdRBKrQnM8KXrxLZ3ivi92IDOlZAV0wz0qbUTm nAzkhtLkpFElBHrxD1JzUGOme462POXoP0JwVQOq c5G3miEdIiNnJTHiuQS7mjA9MMJbLDw7yFLlenB5 woPfeEGwS8mejJ3kQEVdAY5eyfqhi5gpECwwYOec TDXmmNJ9wyQ5AASwsNCpE7AijA1rCVPfSJmqRADk log1FqEtIh6ubIIhwJuhXAftMcquHGsvFDAktmMq bnRccGduZGVjXHBsYWluXHBsYWluXGYwXGZzMjRc fYzveFhkoQ9rQhXzRnRiAVxpMZ5wUTQyC5lzdJIo ORSnLUXfQ3heGvXjmE1vaDoyMVklVxQpFiPtBDxo EEBkCHYmKTHoWAQxeqUuklKfdDnkaoZ7qQD8GASz JDsgXRQfOINdvRSbkz1pkNgjFSWaLO2qLQDbarSp PFxgnAiyEAqvJKT3HDIveCSshYYjhPFuYLUmhKRp KSIfRNCoaBWqJCJmoSoyv0Oax2BctNP7zR6fs3qk o1ZuTYVvzBF7QB14ieR5rK6dIBVaDZ9yATWzDQ7n hCBgqEBnVWCvd07jeDzltsEaGSGfgyCiZLJfWGrf XGYyXGZzMjhcbGFuZzEwMzNcaGljaFxmMlxkYmNo CDEnTDgbI4uiCqFuHdIyQYcfGMT5oL== Clinical Information (test code = menorrhagia [id number]) Gross Description (test code = q0porBSlXCAjfDZ2HbMtMHCcf7adm8MhoRQa cGy 7708763777) [file] D9AxqiG8FEBrxq3= Disclaimer (test code = 5343906285) c8laxWUwFIAtz4chKZFrbXHfPnTxKyS cZnRuYmpc aOQrIBccfjYpZJjma8TrZ2BbEwFoPUvnzyBuXCXp TwixpglyEMBgRFK0ktXgIIDyDJaaOGBdANxqNz0r nKEorZvjYhFyOUPoo1iiwoWIBIziYzViF261IIKo HTyhg3maq3PfHGBycXYty5Q8PJHLuahbwQs2eXxy V89vd7B4UpnnR8koARKwFKGeE7GzOI7wATXbVin6 YRD9IWJ5LDAvFXNaE7UlKY4cNHGehXChRPy2h4oh fWgnDXOoXDK7c0ulGHuveyBcCW5ifl5iiAy5g3lh mhZyJTSlHIVytYNKIMUaW8PpdQxbVd7ndXv6fKzl UjesFTZ2Maq6JQ9wyl90wsp1zRedIOTlsrqlKmL3 MZqlMTLbzbzqQMv6FNbpZYXrvKJ7VGLaoAGrS8Vu VGXwWK3wrcj5KRT3VMiyZGChMwH5RBDurJFbGSNx qKwmFOwdb031NNL0XaLtLZ3dB0Rob6W9fG0qqUVg TOEkuLAbIiGzMIRepx2aqHBwMCoib1CtEAX7zpF6 hIDfcCWiAZLdDA98Iwfna3IpUncqr2CpQ44ftGW0 ABeht9kqRY4xWsJ3jxZjHQuvl3zwsA4nCnP6FAuj BL5yCU3tHODigB4kxhjpKQOaBqYqlfkwBATcvEbn mjRyVg5bzYhmGAK0MRdxW8cmaD4oXlL6HKbfR2so lM9aRHp0GZvthWF7YNFknZ3gSV7flhxqw9rcSNmd GOniUBJonhM9tkT7IOKfhNQeY7WqtV9yVOKuMX1e qckea0dfQVA0UInrZBUvBYW7ZwBbQIOpi8Hhteo3 VdSph9HamQQcFQhgC41ib627ZVYiwfTfC1bkgJQz wgrvxHLfztacMZsyifU8ACZxptCwn6PlBLYpSOO8 HZxsCEgbwCBnKJIvvAnsq7vtU1HetHYvEYOkOJcs XGYxXGZzMjBcbGFuZzEwMzNcaGljaFxmMVxkYmNo [file] G4vnRwQqcT7rxCckGBqxVpZjVvHeCTzkWLZ7oK== Embedded Images (test code = 6409566971) [facility] WITH [id number] 11:52:00 Test Item Value Reference Range Interpretation Comments WBC (test code = See_Comment [Automated 7990-2) message] The sy stem which generated this [...] RDW-SD (test code = 49.1 fL 39.0-49.9 63056-8) RDW-CV (test code = 17.5 % 12.0-15.5 H 788-0) PLT (test code = See_Comment L [Automated 777-3) message] The sy stem which generated this result transmitted reference range : 166 - 358 10*3/ ?L. The reference r susan was not used to interpret this result as normal/abnormal . MPV (test code = 10.3 fL 9.5-12.9 47252-6) NRBC/100 WBC (test See_Comment [Automat ed code = 2083780922) message] The system which generated this result transmitted reference range : 0.0 - 10.0 /100 WBCs. The refer ence range was not u sed to interpret th is result as normal/abnormal . NRBC x10^3 (test code <0.01 See_Comment [Auto mated = 3084260446) message] The s ystem which generated this result transmitted reference range : 10*3/?L. The reference range was not used to interpret this result as normal/abnormal . GRAN MAT (NEUT) % 63.9 % (test code = 770-8) IMM GRAN % (test code 0.20 % = 1260711015) LYMPH % (test code = 23.4 % 736-9) MONO % (test code = 9.6 % 5905-5) EOS % (test code = 2.5 % 713-8) BASO % (test code = 0.4 % 706-2) GRAN MAT x10^3(ANC) 3.28 10*3/uL 1.88-7.09 (test code = 7442714229) IMM GRAN x10^3 (test <0.03 0.00-0.06 code = 0430100421) LYMPH x10^3 (test code 1.20 10*3/uL 1.32-3.29 L = 731-0) MONO x10^3 (test code 0.49 10*3/uL 0.33-0.92 = 742-7) EOS x10^3 (test code = 0.13 10*3/uL 0.03-0.39 711-2) BASO x10^3 (test code <0.03 0.01-0.07 = 704-7) Lab Interpretation Abnormal (test code = 58735-5) [facility] WITHOUT [id number] 00:47:16 Test Item Value Reference Range Interpretation Comments WBC (test code = 6690-2) See_Comment [A utomated message] The system [employer] generated this result transmit ramana reference range : 4.30 - 11.10 10*3/?L. The reference range was not used to interpret this result as normal/abnormal . RBC (test code = 789-8) See_Comment L [Au tomated message] The system [employer] generated this result transmit ramana reference range [...] See_Comment L [Au tomated message] The system [employer] generated this result transmit ramana reference range : 166 - 358 10*3/?L. The reference range was not used to interpret this result as normal/abnormal . MPV (test code = 11.5 fL 9.5-12.9 57347-1) RDW-CV (test code = 16.1 % 12.0-15.5 H 788-0) RDW-SD (test code = 50.6 fL 39.0-49.9 H 68665-2) NRBC x10^3 (test code = <0.01 See_Comment [Au tomated message] 4843353296) The system [employer] generated this result transmit ramana reference range : 10*3/?L. The reference range was not used to interpret this result as normal/abnormal . NRBC/100 WBC (test code See_Comment [Au tomated message] = 8941585493) The system [facility] generated this result transmit ramana reference range : 0.0 - 10.0 /100 WBC s. The reference r susan was not used to interpret this result as normal/abnormal . IPF % (test code = 3892270388) Lab Interpretation (test Abnormal code = 11561-6) [facility] WITHOUT [id number] 00:47:16 Test Item Value Reference Range Interpretation Comments WBC (test code = 6690-2) See_Comment [A utomated message] The system [employer] generated this result transmit ramana reference range : 4.30 - 11.10 10*3/?L. The reference range was not used to interpret this result as normal/abnormal . RBC (test code = 789-8) See_Comment L [Au tomated message] The system [employer] generated this result transmit ramana reference range [...] See_Comment L [Au tomated message] The system [employer] generated this result transmit ramana reference range : 166 - 358 10*3/?L. The reference range was not used to interpret this result as normal/abnormal . MPV (test code = 11.5 fL 9.5-12.9 17195-5) RDW-CV (test code = 16.1 % 12.0-15.5 H 788-0) RDW-SD (test code = 50.6 fL 39.0-49.9 H 20106-7) NRBC x10^3 (test code = <0.01 See_Comment [Au tomated message] 0191618410) The [facility] generated this result transmit ramana reference range : 10*3/?L. The reference range was not used to interpret this result as normal/abnormal . NRBC/100 WBC (test code See_Comment [Au tomated message] = 4668787572) The system [facility] generated this result transmit ramana reference range : 0.0 - 10.0 /100 WBC s. The reference r susan was not used to interpret this result as normal/abnormal . IPF % (test code = 3788194281) Lab Interpretation (test Abnormal code = 98121-2) [facility] 00:18:05 Test Item Value Reference Range Interpretation Comments PH (test code = 2) 7.35-7.45 PCO2 (test code = See_Comment [Automate d message] 6143412424) The system [employer] generated this result transmit ramana reference range : 35 - 45 mmHg. The reference range was not used to interpret this result as normal/abnormal . PO2 (test code = See_Comment H [Automated message] 7193489903) The system [employer] generated this result transmit ramana reference range : 80 - 100 mmHg. The reference range was not used to interpret this result as normal/abnormal . HCO3 (test code = See_Comment L [Automate d message] 2315283398) The system [employer] generated this result transmit ramana reference range : 22 - 26 mEq/L. The reference range was not used to interpret this result as normal/abnormal . BE (test code = See_Comment L [Automated message] 8345619861) The system [employer] generated this result transmit ramana reference range : -3.0 - 3.0 mEq/ L. The reference r susan was not used to interpret this result as normal/abnormal . THB (test code = 5.6 g/dL 12.0-16.0 3724769501) %O2HB (test code = 97.8 % 94.0-99.0 7791247738) %COHB ART (test code = 0.8 % 0.0-1.5 2666743052) %METHB ART (test code = 0.8 % 0.4-1.5 4400490121) VOL%O2 ART (test code = 9.2 % 15.0-23.0 L QUES 8766018031) NA (test code = 132 mmol/L 135-145 L 1144029240) K+ (test code = 4.3 mmol/L 3.5-5.0 9401589744) AC CA IONZ (test code = 6.60 mg/dL 4.50-5.30 5406027382) GLUCOSE (test code = 150 mg/dL 70-110 H 0550446795) Lab Interpretation Abnormal (test code = 52424-6) [facility] 00:18:05 Test Item Value Reference Range Interpretation Comments PH (test code = 2) 7.35-7.45 PCO2 (test code = See_Comment [Automate d message] 7595613806) The system [employer] generated this result transmit ramana reference range : 35 - 45 mmHg. The reference range was not used to interpret this result as normal/abnormal . PO2 (test code = See_Comment H [Automated message] 7087498979) The system [employer] generated this result transmit ramana reference range : 80 - 100 mmHg. The reference range was not used to interpret this result as normal/abnormal . HCO3 (test code = See_Comment L [Automate d message] 5280535951) The system [employer] generated this result transmit ramana reference range : 22 - 26 mEq/L. The reference range was not used to interpret this result as normal/abnormal . BE (test code = See_Comment L [Automated message] 1245133911) The system [employer] generated this result transmit ramana reference range : -3.0 - 3.0 mEq/ L. The reference r susan was not used to interpret this result as normal/abnormal . THB (test code = 5.6 g/dL 12.0-16.0 LL 1802330209) %O2HB (test code = 97.8 % 94.0-99.0 2057015808) %COHB ART (test code = 0.8 % 0.0-1.5 7999172931) %METHB ART (test code = 0.8 % 0.4-1.5 3339445943) VOL%O2 ART (test code = 9.2 % 15.0-23.0 L QUES 9608377474) NA (test code = 132 mmol/L 135-145 L 8578361852) K+ (test code = 4.3 mmol/L 3.5-5.0 2119269563) AC CA IONZ (test code = 6.60 mg/dL 4.50-5.30 9351337367) GLUCOSE (test code = 150 mg/dL 70-110 H 0466052802) Lab Interpretation Abnormal (test code = 99256-7) [facility]11 00:17:20 Test Item Value Reference Range Interpretation Comments PH (test code = 2) 7.35-7.45 PCO2 (test code = See_Comment [Automate d message] 9829571226) The system [employer] generated this result transmit ramana reference range : 35 - 45 mmHg. The reference range was not used to interpret this result as normal/abnormal . PO2 (test code = See_Comment H [Automated message] 6056627846) The system [employer] generated this result transmit ramana reference range : 80 - 100 mmHg. The reference range was not used to interpret this result as normal/abnormal . HCO3 (test code = See_Comment [Automate d message] 4623931077) The system [employer] generated this result transmit ramana reference range : 22 - 26 mEq/L. The reference range was not used to interpret this result as normal/abnormal . BE (test code = See_Comment L [Automated message] 2246990957) The system ic h generated this result transmit ramana reference range : -3.0 - 3.0 mEq/ L. The reference r susan was not used to interpret this result as normal/abnormal . THB (test code = 6.7 g/dL 12.0-16.0 LL 6051269628) %O2HB (test code = 97.9 % 94.0-99.0 0659960571) %COHB ART (test code = 0.8 % 0.0-1.5 2803526215) %METHB ART (test code = 0.4 % 0.4-1.5 6515401443) VOL%O2 ART (test code = 10.3 % 15.0-23.0 L QUES 2846848922) NA (test code = 132 mmol/L 135-145 L 5339367229) K+ (test code = 4.1 mmol/L 3.5-5.0 6169339439) AC CA IONZ (test code = 4.40 mg/dL 4.50-5.30 L 2096744670) GLUCOSE (test code = 173 mg/dL 70-110 H 6807893605) Lab Interpretation Abnormal (test code = 30226-5) [facility] 00:17:20 Test Item Value Reference Range Interpretation Comments PH (test code = 2) 7.35-7.45 PCO2 (test code = See_Comment [Automate d message] 7864284568) The system [employer] generated this result transmit ramana reference range : 35 - 45 mmHg. The reference range was not used to interpret this result as normal/abnormal . PO2 (test code = See_Comment H [Automated message] 7608600250) The system [employer] generated this result transmit ramana reference range : 80 - 100 mmHg. The reference range was not used to interpret this result as normal/abnormal . HCO3 (test code = See_Comment [Automate d message] 5812171451) The system [employer] generated this result transmit ramana reference range : 22 - 26 mEq/L. The reference range was not used to interpret this result as normal/abnormal . BE (test code = See_Comment L [Automated message] 1205025676) The system [employer] generated this result transmit ramana reference range : -3.0 - 3.0 mEq/ L. The reference r susan was not used to interpret this result as normal/abnormal . THB (test code = 6.7 g/dL 12.0-16.0 LL 5871623203) %O2HB (test code = 97.9 % 94.0-99.0 4604080186) %COHB ART (test code = 0.8 % 0.0-1.5 4263017400) %METHB ART (test code = 0.4 % 0.4-1.5 7840151135) VOL%O2 ART (test code = 10.3 % 15.0-23.0 L QUES 5194576225) NA (test code = 132 mmol/L 135-145 L 4102070088) K+ (test code = 4.1 mmol/L 3.5-5.0 0298732218) AC CA IONZ (test code = 4.40 mg/dL 4.50-5.30 L 2699249012) GLUCOSE (test code = 173 mg/dL 70-110 H 0865904872) Lab Interpretation Abnormal (test code = 48352-9) [facility]CA[facility] 00:16:35 Test Item Value Reference Range Interpretation Comments PH (test code = 2) 7.35-7.45 PCO2 (test code = See_Comment L [Automate d message] 8454558015) The system [employer] generated this result transmit ramana reference range : 35 - 45 mmHg. The reference range was not used to interpret this result as normal/abnormal . PO2 (test code = See_Comment H [Automated message] 2297310456) The system [employer] generated this result transmit ramana reference range : 80 - 100 mmHg. The reference range was not used to interpret this result as normal/abnormal . HCO3 (test code = See_Comment L [Automate d message] 2560976496) The system [employer] generated this result transmit ramana reference range : 22 - 26 mEq/L. The reference range was not used to interpret this result as normal/abnormal . BE (test code = See_Comment L [Automated message] 8818347731) The system [employer] generated this result transmit ramana reference range : -3.0 - 3.0 mEq/ L. The reference r susan was not used to interpret this result as normal/abnormal . THB (test code = 7.3 g/dL 12.0-16.0 LL 2168136022) %O2HB (test code = 98.0 % 94.0-99.0 6136244390) %COHB ART (test code = 0.7 % 0.0-1.5 2662090906) %METHB ART (test code = 0.3 % 0.4-1.5 L 6037528538) VOL%O2 ART (test code = 10.9 % 15.0-23.0 L QUES 4853207438) NA (test code = 133 mmol/L 135-145 L 0494700121) K+ (test code = 4.2 mmol/L 3.5-5.0 3699203351) AC CA IONZ (test code = 4.30 mg/dL 4.50-5.30 L 5992252078) GLUCOSE (test code = 161 mg/dL 70-110 H 5919168975) Lab Interpretation Abnormal (test code = 88690-2) [facility]CA[facility]11 00:16:35 Test Item Value Reference Range Interpretation Comments PH (test code = 2) 7.35-7.45 PCO2 (test code = See_Comment L [Automate d message] 0105407922) The system [employer] generated this result transmit ramana reference range : 35 - 45 mmHg. The reference range was not used to interpret this result as normal/abnormal . PO2 (test code = See_Comment H [Automated message] 2949674473) The system [employer] generated this result transmit ramana reference range : 80 - 100 mmHg. The reference range was not used to interpret this result as normal/abnormal . HCO3 (test code = See_Comment L [Automate d message] 3908486607) The system [employer] generated this result transmit ramana reference range : 22 - 26 mEq/L. The reference range was not used to interpret this result as normal/abnormal . BE (test code = See_Comment L [Automated message] 2150641117) The system [employer] generated this result transmit ramana reference range : -3.0 - 3.0 mEq/ L. The reference r susan was not used to interpret this result as normal/abnormal . THB (test code = 7.3 g/dL 12.0-16.0 LL 3002352460) %O2HB (test code = 98.0 % 94.0-99.0 0492171336) %COHB ART (test code = 0.7 % 0.0-1.5 0334986046) %METHB ART (test code = 0.3 % 0.4-1.5 L 0156124081) VOL%O2 ART (test code = 10.9 % 15.0-23.0 L QUES 3027102349) NA (test code = 133 mmol/L 135-145 L 9550356907) K+ (test code = 4.2 mmol/L 3.5-5.0 7970632129) AC CA IONZ (test code = 4.30 mg/dL 4.50-5.30 L 4927845254) GLUCOSE (test code = 161 mg/dL 70-110 H 2637667396) Lab Interpretation Abnormal (test code = 75968-0) [facility]CA[facility]11 00:15:34 Test Item Value Reference Range Interpretation Comments PH (test code = 2) 7.35-7.45 PCO2 (test code = See_Comment L [Automate d message] 2243071636) The system [employer] generated this result transmit ramana reference range : 35 - 45 mmHg. The reference range was not used to interpret this result as normal/abnormal . PO2 (test code = See_Comment H [Automated message] 4222523974) The system [employer] generated this result transmit ramana reference range : 80 - 100 mmHg. The reference range was not used to interpret this result as normal/abnormal . HCO3 (test code = See_Comment L [Automate d message] 8113006328) The system [employer] generated this result transmit ramana reference range : 22 - 26 mEq/L. The reference range was not used to interpret this result as normal/abnormal . BE (test code = See_Comment [Automated message] 6295204689) The system [employer] generated this result transmit ramana reference range : -3.0 - 3.0 mEq/ L. The reference r susan was not used to interpret this result as normal/abnormal . THB (test code = 7.8 g/dL 12.0-16.0 LL 0556893230) %O2HB (test code = 98.1 % 94.0-99.0 8701464364) %COHB ART (test code = 0.9 % 0.0-1.5 3191593249) %METHB ART (test code = 0.2 % 0.4-1.5 L 5002750736) VOL%O2 ART (test code = 12.2 % 15.0-23.0 L QUES 7796703168) NA (test code = 133 mmol/L 135-145 L 3124701821) K+ (test code = 4.3 mmol/L 3.5-5.0 1028637357) AC CA IONZ (test code = 5.30 mg/dL 4.50-5.30 1313315862) GLUCOSE (test code = 111 mg/dL 70-110 H 4689057923) Lab Interpretation Abnormal (test code = 36824-3) [facility]CA[facility]11 00:15:34 Test Item Value Reference Range Interpretation Comments PH (test code = 2) 7.35-7.45 PCO2 (test code = See_Comment L [Automate d message] 4602501207) The system [employer] generated this result transmit ramana reference range : 35 - 45 mmHg. The reference range was not used to interpret this result as normal/abnormal . PO2 (test code = See_Comment H [Automated message] 1714612070) The system [employer] generated this result transmit ramana reference range : 80 - 100 mmHg. The reference range was not used to interpret this result as normal/abnormal . HCO3 (test code = See_Comment L [Automate d message] 2775048046) The system [employer] generated this result transmit ramana reference range : 22 - 26 mEq/L. The reference range was not used to interpret this result as normal/abnormal . BE (test code = See_Comment [Automated message] 1243291048) The system [employer] generated this result transmit ramana reference range : -3.0 - 3.0 mEq/ L. The reference r susan was not used to interpret this result as normal/abnormal . THB (test code = 7.8 g/dL 12.0-16.0 LL 0351709191) %O2HB (test code = 98.1 % 94.0-99.0 7881161418) %COHB ART (test code = 0.9 % 0.0-1.5 7880885496) %METHB ART (test code = 0.2 % 0.4-1.5 L 1961505515) VOL%O2 ART (test code = 12.2 % 15.0-23.0 L QUES [id number]) NA (test code = 133 mmol/L 135-145 L 1422239511) K+ (test code = 4.3 mmol/L 3.5-5.0 4161837548) AC CA IONZ (test code = 5.30 mg/dL 4.50-5.30 1779564623) GLUCOSE (test code = 111 mg/dL 70-110 H 5640737130) Lab Interpretation Abnormal (test code = 80059-6) [facility] METABOLIC PANEL (NA, K, CL, CO2, GLUCOSE, BUN, CREATININE, CA)2021-10-10 11:50:35 Test Item Value Reference Range Interpretation Comments NA (test code = 135 mmol/L 135-145 7480170323) K (test code = 3.6 mmol/L 3.5-5.0 1240988673) CL (test code = 105 mmol/L 98-108 3347653400) CO2 TOTAL (test code = 30 mmol/L 23-31 8659179907) AGAP (test code = <1 2-16 L 4002246070) BUN (test code = 3 mg/dL 7-23 L 0121479936) GLUCOSE (test code = 102 mg/dL 70-110 6913914037) CREATININE (test code = 0.50 mg/dL 0.50-1.04 2609413492) CALCIUM (test code = 8.1 mg/dL 8.6-10.6 L 6869262777) eGFR (test code = mL/min/1.73m2 8914565935) MICKY (test code = MICKY) Association of [...] tests). Lab Interpretation Abnormal (test code = 33536-8) [facility] METABOLIC PANEL (NA, K, CL, CO2, GLUCOSE, BUN, CREATININE, CA)2021-10-10 11:50:35 Test Item Value Reference Range Interpretation Comments NA (test code = 135 mmol/L 135-145 0939952151) K (test code = 3.6 mmol/L 3.5-5.0 3042045694) CL (test code = 105 mmol/L 98-108 3929723085) CO2 TOTAL (test code = 30 mmol/L 23-31 3035327545) AGAP (test code = <1 2-16 L 9850499340) BUN (test code = 3 mg/dL 7-23 L 8289961077) GLUCOSE (test code = 102 mg/dL 70-110 1784210549) CREATININE (test code = 0.50 mg/dL 0.50-1.04 6237591753) CALCIUM (test code = 8.1 mg/dL 8.6-10.6 L 1172256634) eGFR (test code = mL/min/1.73m2 4164865318) MICKY (test code = MICKY) Association of [...] tests). Lab Interpretation Abnormal (test code = 25745-9) [facility]2022-06-26 11:49:04 Test Item Value Reference Range Interpretation Comments MAGNESIUM (test code = 9497145638) 2.0 mg/dL 1.7-2.4 Lab Interpretation (test code = Normal 76547-2) [facility]2022-06-26 11:49:04 Test Item Value Reference Range Interpretation Comments PHOSPHORUS (test code = 3480150442) 3.4 mg/dL 2.5-5.0 Lab Interpretation (test code = Normal 74681-4) [facility]2022-06-26 11:49:04 Test Item Value Reference Range Interpretation Comments MAGNESIUM (test code = 7743218642) 2.0 mg/dL 1.7-2.4 Lab Interpretation (test code = Normal 25483-7) [facility]2022-06-26 11:49:04 Test Item Value Reference Range Interpretation Comments PHOSPHORUS (test code = 8071123849) 3.4 mg/dL 2.5-5.0 Lab Interpretation (test code = Normal 01546-5) [facility] WITHOUT [id number] 11:26:59 Test Item Value Reference Range Interpretation Comments WBC (test code = 6690-2) See_Comment [A utomated message] The system [employer] generated this result transmit ramana reference range : 4.30 - 11.10 10*3/?L. The reference range was not used to interpret this result as normal/abnormal . RBC (test code = 789-8) See_Comment L [Au tomated message] The system [employer] generated this result transmit ramana reference range [...] See_Comment L [Au tomated message] The system [employer] generated this result transmit ramana reference range : 166 - 358 10*3/?L. The reference range was not used to interpret this result as normal/abnormal . MPV (test code = 10.9 fL 9.5-12.9 91355-4) RDW-CV (test code = 16.4 % 12.0-15.5 H 788-0) RDW-SD (test code = 50.1 fL 39.0-49.9 H 96435-3) NRBC x10^3 (test code = <0.01 See_Comment [Au tomated message] 9716901948) The system [employer] generated this result transmit ramana reference range : 10*3/?L. The reference range was not used to interpret this result as normal/abnormal . NRBC/100 WBC (test code See_Comment [Au tomated message] = 4263941330) The system [employer] generated this result transmit ramana reference range : 0.0 - 10.0 /100 WBC s. The reference r susan was not used to interpret this result as normal/abnormal . IPF % (test code = 0810699442) Lab Interpretation (test Abnormal code = 99322-6) [facility] WITHOUT [id number] 11:26:59 Test Item Value Reference Range Interpretation Comments WBC (test code = 6690-2) See_Comment [A utomated message] The system [employer] generated this result transmit ramana reference range : 4.30 - 11.10 10*3/?L. The reference range was not used to interpret this result as normal/abnormal . RBC (test code = 789-8) See_Comment L [Au tomated message] The system [employer] generated this result transmit ramana reference range [...] See_Comment L [Au tomated message] The system [employer] generated this result transmit ramana reference range : 166 - 358 10*3/?L. The reference range was not used to interpret this result as normal/abnormal . MPV (test code = 10.9 fL 9.5-12.9 65706-4) RDW-CV (test code = 16.4 % 12.0-15.5 H 788-0) RDW-SD (test code = 50.1 fL 39.0-49.9 H 72901-5) NRBC x10^3 (test code = <0.01 See_Comment [Au tomated message] 8990463252) The system [employer] generated this result transmit ramana reference range : 10*3/?L. The reference range was not used to interpret this result as normal/abnormal . NRBC/100 WBC (test code See_Comment [Au tomated message] = 6657725048) The system [employer] generated this result transmit ramana reference range : 0.0 - 10.0 /100 WBC s. The reference r susan was not used to interpret this result as normal/abnormal . IPF % (test code = 5950338914) Lab Interpretation (test Abnormal code = 25138-0) [facility] WITHOUT [id number] 00:02:03 Test Item Value Reference Range Interpretation Comments WBC (test code = 6690-2) See_Comment [A utomated message] The system [employer] generated this result transmit ramana reference range : 4.30 - 11.10 10*3/?L. The reference range was not used to interpret this result as normal/abnormal . RBC (test code = 789-8) See_Comment L [Au tomated message] The system [employer] generated this result transmit ramana reference range [...] See_Comment L [Au tomated message] The system [employer] generated this result transmit ramana reference range : 166 - 358 10*3/?L. The reference range was not used to interpret this result as normal/abnormal . MPV (test code = 11.0 fL 9.5-12.9 06819-2) RDW-CV (test code = 15.9 % 12.0-15.5 H 788-0) RDW-SD (test code = 49.4 fL 39.0-49.9 32084-0) NRBC x10^3 (test code = See_Comment [Au tomated message] 7604131187) The system [employer] generated this result transmit ramana reference range : 10*3/?L. The reference range was not used to interpret this result as normal/abnormal . NRBC/100 WBC (test code See_Comment [Au tomated message] = 4779695205) The system [facility] generated this result transmit ramana reference range : 0.0 - 10.0 /100 WBC s. The reference r susan was not used to interpret this result as normal/abnormal . IPF % (test code = 2175974609) Lab Interpretation (test Abnormal code = 98967-8) [facility] WITHOUT [id number] 00:02:03 Test Item Value Reference Range Interpretation Comments WBC (test code = 6690-2) See_Comment [A utomated message] The system [employer] generated this result transmit ramana reference range : 4.30 - 11.10 10*3/?L. The reference range was not used to interpret this result as normal/abnormal . RBC (test code = 789-8) See_Comment L [Au tomated message] The system [employer] generated this result transmit ramana reference range [...] See_Comment L [Au tomated message] The system [employer] generated this result transmit ramana reference range : 166 - 358 10*3/?L. The reference range was not used to interpret this result as normal/abnormal . MPV (test code = 11.0 fL 9.5-12.9 95889-7) RDW-CV (test code = 15.9 % 12.0-15.5 H 788-0) RDW-SD (test code = 49.4 fL 39.0-49.9 31334-0) NRBC x10^3 (test code = See_Comment [Au tomated message] 7397072645) The system [employer] generated this result transmit ramana reference range : 10*3/?L. The reference range was not used to interpret this result as normal/abnormal . NRBC/100 WBC (test code See_Comment [Au tomated message] = 5669130065) The system [facility] generated this result transmit ramana reference range : 0.0 - 10.0 /100 WBC s. The reference r susan was not used to interpret this result as normal/abnormal . IPF % (test code = 7355425656) Lab Interpretation (test Abnormal code = 53492-6) [facility] WITHOUT [id number] 16:52:03 Test Item Value Reference Range Interpretation Comments WBC (test code = 6690-2) See_Comment [A utomated message] The system [facility] generated this result transmit ramana reference range : 4.30 - 11.10 10*3/?L. The reference range was not used to interpret this result as normal/abnormal . RBC (test code = 789-8) See_Comment L [Au tomated message] The system [facility] generated this result transmit ramana [...] See_Comment L [Au tomated message] The system [facility] generated this result transmit ramana reference range : 166 - 358 10*3/?L. The reference range was not used to interpret this result as normal/abnormal . MPV (test code = 10.4 fL 9.5-12.9 86776-6) RDW-CV (test code = 15.8 % 12.0-15.5 H 788-0) RDW-SD (test code = 47.8 fL 39.0-49.9 50724-6) NRBC x10^3 (test code = See_Comment [Au tomated message] 7721301517) The system [employer] generated this result transmit ramana reference range : 10*3/?L. The reference range was not used to interpret this result as normal/abnormal . NRBC/100 WBC (test code See_Comment [Au tomated message] = 0923856153) The system [facility] generated this result transmit ramana reference range : 0.0 - 10.0 /100 WBC s. The reference r susan was not used to interpret this result as normal/abnormal . IPF % (test code = 1297792191) Lab Interpretation (test Abnormal code = 98922-7) [facility] WITHOUT [id number] 16:52:03 Test Item Value Reference Range Interpretation Comments WBC (test code = 6690-2) See_Comment [A utomated message] The system [employer] generated this result transmit ramana reference range : 4.30 - 11.10 10*3/?L. The reference range was not used to interpret this result as normal/abnormal . RBC (test code = 789-8) See_Comment L [Au tomated message] The system [employer] generated this result transmit ramana reference range [...] See_Comment L [Au tomated message] The system [employer] generated this result transmit ramana reference range : 166 - 358 10*3/?L. The reference range was not used to interpret this result as normal/abnormal . MPV (test code = 10.4 fL 9.5-12.9 86369-8) RDW-CV (test code = 15.8 % 12.0-15.5 H 788-0) RDW-SD (test code = 47.8 fL 39.0-49.9 55703-6) NRBC x10^3 (test code = See_Comment [Au tomated message] 7737138619) The system [employer] generated this result transmit ramana reference range : 10*3/?L. The reference range was not used to interpret this result as normal/abnormal . NRBC/100 WBC (test code See_Comment [Au tomated message] = 4367039750) The system [employer] generated this result transmit ramana reference range : 0.0 - 10.0 /100 WBC s. The reference r susan was not used to interpret this result as normal/abnormal . IPF % (test code = 4568022558) Lab Interpretation (test Abnormal code = 16510-1) [facility]2022-06-25 13:44:06 Test Item Value Reference Range Interpretation Comments MAGNESIUM (test code = 2052318792) 1.6 mg/dL 1.7-2.4 L Lab Interpretation (test code = Abnormal 85652-5) [facility]2022-06-25 13:44:06 Test Item Value Reference Range Interpretation Comments PHOSPHORUS (test code = 8572377004) 3.0 mg/dL 2.5-5.0 Lab Interpretation (test code = Normal 42911-7) [facility]2022-06-25 13:44:06 Test Item Value Reference Range Interpretation Comments MAGNESIUM (test code = 8448551088) 1.6 mg/dL 1.7-2.4 L Lab Interpretation (test code = Abnormal 64238-6) [facility]2022-06-25 13:44:06 Test Item Value Reference Range Interpretation Comments PHOSPHORUS (test code = 1714011748) 3.0 mg/dL 2.5-5.0 Lab Interpretation (test code = Normal 39643-4) [facility] Packed RBC (in units), 1 Units 2021-10-09 10:06:26 Test Item Value Reference Range Interpretation Comments Cross Match Result Compatible (test code = 4409) ISBT Blood Type Code (test code = 206747) Unit Blood Type (test A Pos code = 4410) Unit Number (test [id number] code = 4411) Blood Expiration Date & Time (test code = 192545) Status Information Issued (test code = 4412) Product Red Blood Cells Identification (test code = 4413) Product Code (test I4380P47 Performed at [facility] code = 4414) Laboratory Services [facility] Blood [address] [place] [id number] Free: [phone] A No. [id number] [facility] Packed RBC (in units), 1 Units 2021-10-09 10:06:26 Test Item Value Reference Range Interpretation Comments Cross Match Result Compatible (test code = 4409) ISBT Blood Type Code (test code = 479687) Unit Blood Type (test A Pos code = 4410) Unit Number (test [id number] code = 4411) Blood Expiration Date & Time (test code = 475819) Status Information Issued (test code = 4412) Product Red Blood Cells Identification (test code = 4413) Product Code (test [id number] Performed at [facility] code = 4414) Laboratory Services [facility] Blood [address] [place] [id number] Free: [phone] A No. [id number] [facility] (NA, K, CL, CO2, GLUCOSE, BUN, CREATININE, CA)2021-10-09 10:00:59 Test Item Value Reference Range Interpretation Comments NA (test code = 134 mmol/L 135-145 L 6901871041) K (test code = 3.9 mmol/L 3.5-5.0 9560534295) CL (test code = 106 mmol/L 98-108 5549108723) CO2 TOTAL (test code = 29 mmol/L 23-31 4578258372) AGAP (test code = <1 2-16 L 9333632360) BUN (test code = 7 mg/dL 7-23 4868612772) GLUCOSE (test code = 119 mg/dL 70-110 H 0951746703) CREATININE (test code = 0.49 mg/dL 0.50-1.04 L 3816639794) CALCIUM (test code = 7.5 mg/dL 8.6-10.6 L 1418912472) eGFR (test code = mL/min/1.73m2 5222404615) MICKY (test code = MICKY) Association of [...] tests). Lab Interpretation Abnormal (test code = 24784-2) [facility] METABOLIC PANEL (NA, K, CL, CO2, GLUCOSE, BUN, CREATININE, CA)2021-10-09 10:00:59 Test Item Value Reference Range Interpretation Comments NA (test code = 134 mmol/L 135-145 L 3217393951) K (test code = 3.9 mmol/L 3.5-5.0 5686028635) CL (test code = 106 mmol/L 98-108 5208471497) CO2 TOTAL (test code = 29 mmol/L 23-31 9661717719) AGAP (test code = <1 2-16 L 9223092279) BUN (test code = 7 mg/dL 7-23 9739562618) GLUCOSE (test code = 119 mg/dL 70-110 H 6481824492) CREATININE (test code = 0.49 mg/dL 0.50-1.04 L 3060737595) CALCIUM (test code = 7.5 mg/dL 8.6-10.6 L 2269367980) eGFR (test code = mL/min/1.73m2 5008319443) MICKY (test code = MICKY) Association of [...] tests). Lab Interpretation Abnormal (test code = 48236-9) [facility] WITHOUT [id number] 09:00:48 Test Item Value Reference Range Interpretation Comments WBC (test code = See_Comment [Automated message] 6690-2) The system [employer] generated this result transmitted ref erence range: 4.30 - 1 1.10 10*3/?L. The reference range was not used to int erpret this result as normal/abnormal . RBC (test code = 789-8) See_Comment L [Au tomated message] The system [employer] generated this result transmitted ref erence range: [...] See_Comment L [Au tomated message] The system [employer] generated this result transmitted ref erence range: 166 - 35 8 10*3/?L. The reference range was not used to int erpret this result as normal/abnormal . MPV (test code = 10.9 fL 9.5-12.9 44654-1) RDW-CV (test code = 16.3 % 12.0-15.5 H 788-0) RDW-SD (test code = 48.7 fL 39.0-49.9 82664-3) NRBC x10^3 (test code = <0.01 See_Comment [Au tomated message] 9213349178) The system [employer] generated this result transmitted ref erence range: 10*3/?L. The reference range was not used to int erpret this result as normal/abnormal . NRBC/100 WBC (test code See_Comment [Au tomated message] = 9271740091) The system [facility] generated this result transmitted ref erence range: 0.0 - 10 .0 /100 WBCs. The reference range was not used to int erpret this result as normal/abnormal . IPF % (test code = 3.6 % 1.3-7.7 Platelet count 5525067198) measured by fluorescence me thod. Lab Interpretation Abnormal (test code = 66865-5) [facility] WITHOUT [id number] 09:00:48 Test Item Value Reference Range Interpretation Comments WBC (test code = See_Comment [Automated message] 6690-2) The system [employer] generated this result transmitted ref erence range: 4.30 - 1 1.10 10*3/?L. The reference range was not used to int erpret this result as normal/abnormal . RBC (test code = 789-8) See_Comment L [Au tomated message] The system [employer] generated this result transmitted ref erence range: [...] See_Comment L [Au tomated message] The system [employer] generated this result transmitted ref erence range: 166 - 35 8 10*3/?L. The reference range was not used to int erpret this result as normal/abnormal . MPV (test code = 10.9 fL 9.5-12.9 22147-0) RDW-CV (test code = 16.3 % 12.0-15.5 H 788-0) RDW-SD (test code = 48.7 fL 39.0-49.9 06880-7) NRBC x10^3 (test code = <0.01 See_Comment [Au tomated message] 6181639023) The system [employer] generated this result transmitted ref erence range: 10*3/?L. The reference range was not used to int erpret this result as normal/abnormal . NRBC/100 WBC (test code See_Comment [Au tomated message] = 6745720398) The system [employer] generated this result transmitted ref erence range: 0.0 - 10 .0 /100 WBCs. The reference range was not used to int erpret this result as normal/abnormal . IPF % (test code = 3.6 % 1.3-7.7 Platelet count 8596992357) measured by fluorescence me thod. Lab Interpretation Abnormal (test code = 92298-7) [facility] WITHOUT [id number] 01:42:07 Test Item Value Reference Range Interpretation Comments WBC (test code = See_Comment [Automated message] 6690-2) The system [employer] generated this result transmitted ref erence range: 4.30 - 1 1.10 10*3/?L. The reference range was not used to int erpret this result as normal/abnormal . RBC (test code = 789-8) See_Comment L [Au tomated message] The system [employer] generated this result transmitted ref erence range: [...] See_Comment L [Au tomated message] The system [employer] generated this result transmitted ref erence range: 166 - 35 8 10*3/?L. The reference range was not used to int erpret this result as normal/abnormal . MPV (test code = 10.6 fL 9.5-12.9 26742-1) RDW-CV (test code = 16.2 % 12.0-15.5 H 788-0) RDW-SD (test code = 48.3 fL 39.0-49.9 35269-1) NRBC x10^3 (test code = See_Comment [Au tomated message] 2808816286) The system [employer] generated this result transmitted ref erence range: 10*3/?L. The reference range was not used to int erpret this result as normal/abnormal . NRBC/100 WBC (test code See_Comment [Au tomated message] = 7434463939) The system [employer] generated this result transmitted ref erence range: 0.0 - 10 .0 /100 WBCs. The reference range was not used to int erpret this result as normal/abnormal . IPF % (test code = 3.3 % 1.3-7.7 Platelet count 0329407940) measured by fluorescence me thod. Lab Interpretation Abnormal (test code = 41486-3) [facility] WITHOUT [id number] 01:42:07 Test Item Value Reference Range Interpretation Comments WBC (test code = See_Comment [Automated message] 6690-2) The system [employer] generated this result transmitted ref erence range: 4.30 - 1 1.10 10*3/?L. The reference range was not used to int erpret this result as normal/abnormal . RBC (test code = 789-8) See_Comment L [Au tomated message] The system [employer] generated this result transmitted ref erence range: [...] See_Comment L [Au tomated message] The system [employer] generated this result transmitted ref erence range: 166 - 35 8 10*3/?L. The reference range was not used to int erpret this result as normal/abnormal . MPV (test code = 10.6 fL 9.5-12.9 89875-7) RDW-CV (test code = 16.2 % 12.0-15.5 H 788-0) RDW-SD (test code = 48.3 fL 39.0-49.9 82209-1) NRBC x10^3 (test code = See_Comment [Au tomated message] 4935317565) The system [employer] generated this result transmitted ref erence range: 10*3/?L. The reference range was not used to int erpret this result as normal/abnormal . NRBC/100 WBC (test code See_Comment [Au tomated message] = 8727304181) The system [employer] generated this result transmitted ref erence range: 0.0 - 10 .0 /100 WBCs. The reference range was not used to int erpret this result as normal/abnormal . IPF % (test code = 3.3 % 1.3-7.7 Platelet count 3959822507) measured by fluorescence me thod. Lab Interpretation Abnormal (test code = 04362-5) [facility] METABOLIC PANEL (NA, K, CL, CO2, GLUCOSE, BUN, CREATININE, CA)2021-10-09 01:19:05 Test Item Value Reference Range Interpretation Comments NA (test code = 135 mmol/L 135-145 1587306586) K (test code = 4.0 mmol/L 3.5-5.0 6553349888) CL (test code = 106 mmol/L 98-108 0322489632) CO2 TOTAL (test code = 27 mmol/L 23-31 2274017173) AGAP (test code = 2-16 8700371726) BUN (test code = 8 mg/dL 7-23 4948489301) GLUCOSE (test code = 98 mg/dL 70-110 1077696669) CREATININE (test code = 0.49 mg/dL 0.50-1.04 L 7664547470) CALCIUM (test code = 7.6 mg/dL 8.6-10.6 L 5401595413) eGFR (test code = mL/min/1.73m2 8128919223) MICKY (test code = MICKY) Association of [...] tests). Lab Interpretation Abnormal (test code = 90034-9) [facility] METABOLIC PANEL (NA, K, CL, CO2, GLUCOSE, BUN, CREATININE, CA)2021-10-09 01:19:05 Test Item Value Reference Range Interpretation Comments NA (test code = 135 mmol/L 135-145 7530503204) K (test code = 4.0 mmol/L 3.5-5.0 9107965855) CL (test code = 106 mmol/L 98-108 6512293437) CO2 TOTAL (test code = 27 mmol/L 23-31 2166561514) AGAP (test code = 2-16 4489443796) BUN (test code = 8 mg/dL 7-23 7912790379) GLUCOSE (test code = 98 mg/dL 70-110 5031106079) CREATININE (test code = 0.49 mg/dL 0.50-1.04 L 6939901094) CALCIUM (test code = 7.6 mg/dL 8.6-10.6 L 7915689798) eGFR (test code = mL/min/1.73m2 3808457959) MICKY (test code = MICKY) Association of [...] tests). Lab Interpretation Abnormal (test code = 96223-6) [facility] METABOLIC PANEL (NA, K, CL, CO2, GLUCOSE, BUN, CREATININE, CA)2021-10-08 16:28:34 Test Item Value Reference Range Interpretation Comments NA (test code = 134 mmol/L 135-145 L 3921911344) K (test code = 4.1 mmol/L 3.5-5.0 1033191156) CL (test code = 106 mmol/L 98-108 6230048639) CO2 TOTAL (test code = 26 mmol/L 23-31 7213949510) AGAP (test code = 2-16 6402547385) BUN (test code = 6 mg/dL 7-23 L 5128245797) GLUCOSE (test code = 124 mg/dL 70-110 H 0438672436) CREATININE (test code = 0.48 mg/dL 0.50-1.04 L 7526345572) CALCIUM (test code = 8.0 mg/dL 8.6-10.6 L 3852373033) eGFR (test code = mL/min/1.73m2 4670567937) MICKY (test code = MICKY) Association of [...] tests). Lab Interpretation Abnormal (test code = 27875-8) [facility] METABOLIC PANEL (NA, K, CL, CO2, GLUCOSE, BUN, CREATININE, CA)2021-10-08 16:28:34 Test Item Value Reference Range Interpretation Comments NA (test code = 134 mmol/L 135-145 L 8002272721) K (test code = 4.1 mmol/L 3.5-5.0 0351151270) CL (test code = 106 mmol/L 98-108 5597955803) CO2 TOTAL (test code = 26 mmol/L 23-31 8360162486) AGAP (test code = 2-16 3008591625) BUN (test code = 6 mg/dL 7-23 L 1187348483) GLUCOSE (test code = 124 mg/dL 70-110 H 7180737791) CREATININE (test code = 0.48 mg/dL 0.50-1.04 L 9877751757) CALCIUM (test code = 8.0 mg/dL 8.6-10.6 L 3250132498) eGFR (test code = mL/min/1.73m2 4766011271) MICKY (test code = MICKY) Association of [...] tests). Lab Interpretation Abnormal (test code = 47269-5) [facility] METABOLIC PANEL (NA, K, CL, CO2, GLUCOSE, BUN, CREATININE, CA)2021-10-08 16:28:34 Test Item Value Reference Range Interpretation Comments NA (test code = 134 mmol/L 135-145 L 2659887860) K (test code = 4.1 mmol/L 3.5-5.0 4640482127) CL (test code = 106 mmol/L 98-108 8441054990) CO2 TOTAL (test code = 26 mmol/L 23-31 0650309414) AGAP (test code = 2-16 1837065484) BUN (test code = 6 mg/dL 7-23 L 0013972143) GLUCOSE (test code = 124 mg/dL 70-110 H 4860835069) CREATININE (test code = 0.48 mg/dL 0.50-1.04 L 1770011136) CALCIUM (test code = 8.0 mg/dL 8.6-10.6 L 7240088739) eGFR (test code = mL/min/1.73m2 6918375929) MICKY (test code = MICKY) Association of [...] tests). Lab Interpretation Abnormal (test code = 50168-0) [facility] WITHOUT [id number] 16:00:11 Test Item Value Reference Range Interpretation Comments WBC (test code = See_Comment [Automated message] 6690-2) The system [employer] generated this result transmitted ref erence range: 4.30 - 1 1.10 10*3/?L. The reference range was not used to int erpret this result as normal/abnormal . RBC (test code = 789-8) See_Comment L [Au tomated message] The system [employer] generated this result transmitted ref erence range: [...] See_Comment L [Au tomated message] The system [employer] generated this result transmitted ref erence range: 166 - 35 8 10*3/?L. The reference range was not used to int erpret this result as normal/abnormal . MPV (test code = 10.6 fL 9.5-12.9 02448-8) RDW-CV (test code = 15.9 % 12.0-15.5 H 788-0) RDW-SD (test code = 47.8 fL 39.0-49.9 32946-9) NRBC x10^3 (test code = See_Comment [Au tomated message] 0066460036) The system [employer] generated this result transmitted ref erence range: 10*3/?L. The reference range was not used to int erpret this result as normal/abnormal . NRBC/100 WBC (test code See_Comment [Au tomated message] = 7107517997) The system [employer] generated this result transmitted ref erence range: 0.0 - 10 .0 /100 WBCs. The reference range was not used to int erpret this result as normal/abnormal . IPF % (test code = 6.3 % 1.3-7.7 Platelet count 6092614541) measured by fluorescence me thod. Lab Interpretation Abnormal (test code = 64917-2) [facility] WITHOUT [id number] 16:00:11 Test Item Value Reference Range Interpretation Comments WBC (test code = See_Comment [Automated message] 6690-2) The system [employer] generated this result transmitted ref erence range: 4.30 - 1 1.10 10*3/?L. The reference range was not used to int erpret this result as normal/abnormal . RBC (test code = 789-8) See_Comment L [Au tomated message] The system [employer] generated this result transmitted ref erence range: [...] See_Comment L [Au tomated message] The system [employer] generated this result transmitted ref erence range: 166 - 35 8 10*3/?L. The reference range was not used to int erpret this result as normal/abnormal . MPV (test code = 10.6 fL 9.5-12.9 25755-8) RDW-CV (test code = 15.9 % 12.0-15.5 H 788-0) RDW-SD (test code = 47.8 fL 39.0-49.9 92714-5) NRBC x10^3 (test code = See_Comment [Au tomated message] 5178925621) The system [employer] generated this result transmitted ref erence range: 10*3/?L. The reference range was not used to int erpret this result as normal/abnormal . NRBC/100 WBC (test code See_Comment [Au tomated message] = 6075362450) The system [facility] generated this result transmitted ref erence range: 0.0 - 10 .0 /100 WBCs. The reference range was not used to int erpret this result as normal/abnormal . IPF % (test code = 6.3 % 1.3-7.7 Platelet count 1831780690) measured by fluorescence me thod. Lab Interpretation Abnormal (test code = 24150-0) [facility] WITHOUT [id number] 16:00:11 Test Item Value Reference Range Interpretation Comments WBC (test code = See_Comment [Automated message] 6690-2) The system [employer] generated this result transmitted ref erence range: 4.30 - 1 1.10 10*3/?L. The reference range was not used to int erpret this result as normal/abnormal . RBC (test code = 789-8) See_Comment L [Au tomated message] The system [employer] generated this result transmitted ref erence range: [...] See_Comment L [Au tomated message] The system [employer] generated this result transmitted ref erence range: 166 - 35 8 10*3/?L. The reference range was not used to int erpret this result as normal/abnormal . MPV (test code = 10.6 fL 9.5-12.9 04132-4) RDW-CV (test code = 15.9 % 12.0-15.5 H 788-0) RDW-SD (test code = 47.8 fL 39.0-49.9 58420-9) NRBC x10^3 (test code = See_Comment [Au tomated message] 8208205047) The system [employer] generated this result transmitted ref erence range: 10*3/?L. The reference range was not used to int erpret this result as normal/abnormal . NRBC/100 WBC (test code See_Comment [Au tomated message] = 8372171062) The system [employer] generated this result transmitted ref erence range: 0.0 - 10 .0 /100 WBCs. The reference range was not used to int erpret this result as normal/abnormal . IPF % (test code = 6.3 % 1.3-7.7 Platelet count 9122992550) measured by fluorescence me thod. Lab Interpretation Abnormal (test code = 05299-4) [facility]-08 15:36:16 Test Item Value Reference Range Interpretation Comments HGB A1C (test code = 5.3 % 4.0-5.7 4548-4) MICKY (test code = MICKY) Reference RangesNormal: <5.7%Prediabetes: 5.7 - 6.4%Diabetes: > 6.5% Lab Interpretation (test Normal code = 18819-5) [facility]2021-10-08 15:36:16 Test Item Value Reference Range Interpretation Comments HGB A1C (test code = 5.3 % 4.0-5.7 4548-4) MICKY (test code = MICKY) Reference RangesNormal: <5.7%Prediabetes: 5.7 - 6.4%Diabetes: > 6.5% Lab Interpretation (test Normal code = 83736-7) [facility]C)2021-10-08 15:36:16 Test Item Value Reference Range Interpretation Comments HGB A1C (test code = 5.3 % 4.0-5.7 4548-4) MICKY (test code = MICKY) Reference RangesNormal: <5.7%Prediabetes: 5.7 - 6.4%Diabetes: > 6.5% Lab Interpretation (test Normal code = 07145-9) [facility] (NA, K, CL, CO2, GLUCOSE, BUN, CREATININE, CA)2021-10-08 13:25:28 Test Item Value Reference Range Interpretation Comments NA (test code = 135 mmol/L 135-145 0205479324) K (test code = 4.0 mmol/L 3.5-5.0 1707470935) CL (test code = 110 mmol/L 98-108 H 2925159793) CO2 TOTAL (test code = 23 mmol/L 23-31 7168579432) AGAP (test code = 2-16 1135728515) BUN (test code = 8 mg/dL 7-23 9358479628) GLUCOSE (test code = 98 mg/dL 70-110 7680328739) CREATININE (test code = 0.48 mg/dL 0.50-1.04 L 4928135078) CALCIUM (test code = 9.7 mg/dL 8.6-10.6 3087426163) eGFR (test code = mL/min/1.73m2 6964628766) MICKY (test code = MICKY) Association of [...] tests). Lab Interpretation Abnormal (test code = 59267-4) [facility] METABOLIC PANEL (NA, K, CL, CO2, GLUCOSE, BUN, CREATININE, CA)2021-10-08 13:25:28 Test Item Value Reference Range Interpretation Comments NA (test code = 135 mmol/L 135-145 2628499430) K (test code = 4.0 mmol/L 3.5-5.0 7306157420) CL (test code = 110 mmol/L 98-108 H 9709477585) CO2 TOTAL (test code = 23 mmol/L 23-31 8273885767) AGAP (test code = 2-16 2914856893) BUN (test code = 8 mg/dL 7-23 9807271395) GLUCOSE (test code = 98 mg/dL 70-110 6541454463) CREATININE (test code = 0.48 mg/dL 0.50-1.04 L 6866440420) CALCIUM (test code = 9.7 mg/dL 8.6-10.6 6961110890) eGFR (test code = mL/min/1.73m2 3215013390) MICKY (test code = MICKY) Association of [...] tests). Lab Interpretation Abnormal (test code = 51903-8) [facility] (NA, K, CL, CO2, GLUCOSE, BUN, CREATININE, CA)2021-10-08 13:25:28 Test Item Value Reference Range Interpretation Comments NA (test code = 135 mmol/L 135-145 2272227777) K (test code = 4.0 mmol/L 3.5-5.0 8201399208) CL (test code = 110 mmol/L 98-108 H 8196146675) CO2 TOTAL (test code = 23 mmol/L 23-31 9023380724) AGAP (test code = 2-16 6188703631) BUN (test code = 8 mg/dL 7-23 1746944045) GLUCOSE (test code = 98 mg/dL 70-110 4580174274) CREATININE (test code = 0.48 mg/dL 0.50-1.04 L 0164922154) CALCIUM (test code = 9.7 mg/dL 8.6-10.6 9851564336) eGFR (test code = mL/min/1.73m2 2174132890) MICKY (test code = MICKY) Association of [...] tests). Lab Interpretation Abnormal (test code = 32030-9) [facility] 13:19:15 Test Item Value Reference Range Interpretation Comments MAGNESIUM (test code = 6194564343) 1.4 mg/dL 1.7-2.4 L Lab Interpretation (test code = Abnormal 42093-0) [facility] 13:19:15 Test Item Value Reference Range Interpretation Comments PHOSPHORUS (test code = 7490339376) 4.3 mg/dL 2.5-5.0 Lab Interpretation (test code = Normal 34905-6) [facility] (33194) (ALB,T.PRO,BILI T,BU/BC,ALT,AST,ALK PHOS)2021-10-08 13:19:15 Test Item Value Reference Range Interpretation Comments TOTAL BILI (test code = 8137919750) 1.5 mg/dL 0.1-1.1 H BILI UNCON (test code = 7743602504) 1.3 mg/dL 0.1-1.1 H BILI CONJ (test code = 0930383687) 0.0 mg/dL 0.0-0.3 T PROTEIN (test code = 2715418222) 4.9 g/dL 6.3-8.2 L ALBUMIN (test code = 9137069508) 2.7 g/dL 3.5-5.0 L ALK PHOS (test code = 9578454332) 46 U/L 34-122 ALTv (test code = 1742-6) 13 U/L 5-35 AST(SGOT) (test code = 7237007654) 24 U/L 13-40 Lab Interpretation (test code = Abnormal 36483-5) [facility] 13:19:15 Test Item Value Reference Range Interpretation Comments MAGNESIUM (test code = 4293431944) 1.4 mg/dL 1.7-2.4 L Lab Interpretation (test code = Abnormal 51251-2) [facility] 13:19:15 Test Item Value Reference Range Interpretation Comments PHOSPHORUS (test code = 5357539280) 4.3 mg/dL 2.5-5.0 Lab Interpretation (test code = Normal 82106-2) [facility] (29259) (ALB,T.PRO,BILI T,BU/BC,ALT,AST,ALK PHOS)2021-10-08 13:19:15 Test Item Value Reference Range Interpretation Comments TOTAL BILI (test code = 3856906503) 1.5 mg/dL 0.1-1.1 H BILI UNCON (test code = 2070348630) 1.3 mg/dL 0.1-1.1 H BILI CONJ (test code = 0484180662) 0.0 mg/dL 0.0-0.3 T PROTEIN (test code = 3465610842) 4.9 g/dL 6.3-8.2 L ALBUMIN (test code = 8171811671) 2.7 g/dL 3.5-5.0 L ALK PHOS (test code = 1407303369) 46 U/L 34-122 ALTv (test code = 1742-6) 13 U/L 5-35 AST(SGOT) (test code = 7193491861) 24 U/L 13-40 Lab Interpretation (test code = Abnormal 23332-9) [facility] 13:19:15 Test Item Value Reference Range Interpretation Comments MAGNESIUM (test code = 7113192205) 1.4 mg/dL 1.7-2.4 L Lab Interpretation (test code = Abnormal 81742-5) [facility] 13:19:15 Test Item Value Reference Range Interpretation Comments PHOSPHORUS (test code = 4395382251) 4.3 mg/dL 2.5-5.0 Lab Interpretation (test code = Normal 22759-4) [facility] (64208) (ALB,T.PRO,BILI T,BU/BC,ALT,AST,ALK PHOS)2021-10-08 13:19:15 Test Item Value Reference Range Interpretation Comments TOTAL BILI (test code = 6587874973) 1.5 mg/dL 0.1-1.1 H BILI UNCON (test code = 3578866449) 1.3 mg/dL 0.1-1.1 H BILI CONJ (test code = 5297962441) 0.0 mg/dL 0.0-0.3 T PROTEIN (test code = 3075801189) 4.9 g/dL 6.3-8.2 L ALBUMIN (test code = 4027291590) 2.7 g/dL 3.5-5.0 L ALK PHOS (test code = 3919375711) 46 U/L 34-122 ALTv (test code = 1742-6) 13 U/L 5-35 AST(SGOT) (test code = 8609806827) 24 U/L 13-40 Lab Interpretation (test code = Abnormal 19612-7) [facility] [id number] 11:26:11 Test Item Value Reference Range Interpretation Comments WBC (test code = See_Comment [Automated 4621-2) message] The sy stem which generated this [...] RDW-SD (test code = 46.1 fL 39.0-49.9 81807-8) RDW-CV (test code = 15.2 % 12.0-15.5 788-0) PLT (test code = See_Comment L [Automated 777-3) message] The sy stem which generated this result transmitted reference range : 166 - 358 10*3/ ?L. The reference r susan was not used to interpret this result as normal/abnormal . MPV (test code = 11.0 fL 9.5-12.9 74591-1) IPF % (test code = 4.9 % 1.3-7.7 Platelet count 7311438881) measured by fluorescence method. NRBC/100 WBC (test See_Comment [Automat ed code = 1555058193) message] The system which generated this result transmitted reference range : 0.0 - 10.0 /100 WBCs. The refer ence range was not u sed to interpret th is result as normal/abnormal . NRBC x10^3 (test code <0.01 See_Comment [Auto mated = 0348218975) message] The s ystem which generated this result transmitted reference range : 10*3/?L. The reference range was not used to interpret this result as normal/abnormal . GRAN MAT (NEUT) % 84.1 % (test code = 770-8) IMM GRAN % (test code 0.60 % = 0843121550) LYMPH % (test code = 4.2 % 736-9) MONO % (test code = 11.0 % 5905-5) EOS % (test code = 0.0 % 713-8) BASO % (test code = 0.1 % 706-2) GRAN MAT x10^3(ANC) 6.05 10*3/uL 1.88-7.09 (test code = 5188168366) IMM GRAN x10^3 (test 0.04 10*3/uL 0.00-0.06 code = 5901029318) LYMPH x10^3 (test code 0.30 10*3/uL 1.32-3.29 L = 731-0) MONO x10^3 (test code 0.79 10*3/uL 0.33-0.92 = 742-7) EOS x10^3 (test code = <0.03 0.03-0.39 L 711-2) BASO x10^3 (test code <0.03 0.01-0.07 = 704-7) POLYCHROMASIA (test 2+ See_Comment [Automa ramana code = 16928-1) message] The system which generated this result transmitted reference range : 2+. The referen ce range was not u sed to interpret th is result as normal/abnormal . Lab Interpretation Abnormal (test code = 86127-3) [facility] WITH [id number] 11:26:11 Test Item Value Reference Range Interpretation Comments WBC (test code = See_Comment [Automated 6690-2) message] The sy stem which generated this result transmitted reference range : 4.30 - 11.10 10*3/?L. The reference range was not used to interpret this result as normal/abnormal . RBC (test code = See_Comment L [Automated 079-8) message] The sy stem which generated this [...] RDW-SD (test code = 46.1 fL 39.0-49.9 36721-1) RDW-CV (test code = 15.2 % 12.0-15.5 788-0) PLT (test code = See_Comment L [Automated 777-3) message] The sy stem which generated this result transmitted reference range : 166 - 358 10*3/ ?L. The reference r susan was not used to interpret this result as normal/abnormal . MPV (test code = 11.0 fL 9.5-12.9 12649-3) IPF % (test code = 4.9 % 1.3-7.7 Platelet count 3965972607) measured by fluorescence method. NRBC/100 WBC (test See_Comment [Automat ed code = 4521005310) message] The system which generated this result transmitted reference range : 0.0 - 10.0 /100 WBCs. The refer ence range was not u sed to interpret th is result as normal/abnormal . NRBC x10^3 (test code <0.01 See_Comment [Auto mated = 2237003056) message] The s ystem which generated this result transmitted reference range : 10*3/?L. The reference range was not used to interpret this result as normal/abnormal . GRAN MAT (NEUT) % 84.1 % (test code = 770-8) IMM GRAN % (test code 0.60 % = 3997653187) LYMPH % (test code = 4.2 % 736-9) MONO % (test code = 11.0 % 5905-5) EOS % (test code = 0.0 % 713-8) BASO % (test code = 0.1 % 706-2) GRAN MAT x10^3(ANC) 6.05 10*3/uL 1.88-7.09 (test code = 2325848881) IMM GRAN x10^3 (test 0.04 10*3/uL 0.00-0.06 code = 5164918269) LYMPH x10^3 (test code 0.30 10*3/uL 1.32-3.29 L = 731-0) MONO x10^3 (test code 0.79 10*3/uL 0.33-0.92 = 742-7) EOS x10^3 (test code = <0.03 0.03-0.39 L 711-2) BASO x10^3 (test code <0.03 0.01-0.07 = 704-7) POLYCHROMASIA (test 2+ See_Comment [Automa ramana code = 63923-5) message] The system which generated this result transmitted reference range : 2+. The referen ce range was not u sed to interpret th is result as normal/abnormal . Lab Interpretation Abnormal (test code = 02727-0) [facility] WITH [id number] 11:26:11 Test Item Value Reference Range Interpretation Comments WBC (test code = See_Comment [Automated 9790-2) message] The sy stem which generated this [...] RDW-SD (test code = 46.1 fL 39.0-49.9 91747-7) RDW-CV (test code = 15.2 % 12.0-15.5 788-0) PLT (test code = See_Comment L [Automated 777-3) message] The sy stem which generated this result transmitted reference range : 166 - 358 10*3/ ?L. The reference r susan was not used to interpret this result as normal/abnormal . MPV (test code = 11.0 fL 9.5-12.9 76731-4) IPF % (test code = 4.9 % 1.3-7.7 Platelet count 3807213535) measured by fluorescence method. NRBC/100 WBC (test See_Comment [Automat ed code = 1266066486) message] The system which generated this result transmitted reference range : 0.0 - 10.0 /100 WBCs. The refer ence range was not u sed to interpret th is result as normal/abnormal . NRBC x10^3 (test code <0.01 See_Comment [Auto mated = 6446460093) message] The s ystem which generated this result transmitted reference range : 10*3/?L. The reference range was not used to interpret this result as normal/abnormal . GRAN MAT (NEUT) % 84.1 % (test code = 770-8) IMM GRAN % (test code 0.60 % = 1073688623) LYMPH % (test code = 4.2 % 736-9) MONO % (test code = 11.0 % 5905-5) EOS % (test code = 0.0 % 713-8) BASO % (test code = 0.1 % 706-2) GRAN MAT x10^3(ANC) 6.05 10*3/uL 1.88-7.09 (test code = 8378745091) IMM GRAN x10^3 (test 0.04 10*3/uL 0.00-0.06 code = 7491567756) LYMPH x10^3 (test code 0.30 10*3/uL 1.32-3.29 L = 731-0) MONO x10^3 (test code 0.79 10*3/uL 0.33-0.92 = 742-7) EOS x10^3 (test code = <0.03 0.03-0.39 L 711-2) BASO x10^3 (test code <0.03 0.01-0.07 = 704-7) POLYCHROMASIA (test 2+ See_Comment [Automa ramana code = 34081-7) message] The system which generated this result transmitted reference range : 2+. The referen ce range was not u sed to interpret th is result as normal/abnormal . Lab Interpretation Abnormal (test code = 51776-9) [facility] / [id number] 11:04:07 Test Item Value Reference Range Interpretation Comments PROTIME PATIENT (test See_Comment L [Auto mated message] code = 5964-2) The system [employer] generated this result transmitted ref erence range: 12.0 - 1 4.7 Seconds. The reference range was not used to int erpret this result as normal/abnormal . INR (test code = 6301-6) Nor mal INR <1.1; Warfarin Therap eutic range 2.0 to 3. 0 or 2.5 to 3.5, dep ending upon the indica tions. Lab Interpretation (test Abnormal code = 81666-1) [facility] / [id number] 11:04:07 Test Item Value Reference Range Interpretation Comments PROTIME PATIENT (test See_Comment L [Auto mated message] code = 5964-2) The system [employer] generated this result transmitted ref erence range: 12.0 - 1 4.7 Seconds. The reference range was not used to int erpret this result as normal/abnormal . INR (test code = 6301-6) Nor mal INR <1.1; Warfarin Therap eutic range 2.0 to 3. 0 or 2.5 to 3.5, dep ending upon the indica tions. Lab Interpretation (test Abnormal code = 63195-4) [facility] / [id number] 11:04:07 Test Item Value Reference Range Interpretation Comments PROTIME PATIENT (test See_Comment L [Auto mated message] code = 5964-2) The system [employer] generated this result transmitted ref erence range: 12.0 - 1 4.7 Seconds. The reference range was not used to int erpret this result as normal/abnormal . INR (test code = 6301-6) Nor mal INR <1.1; Warfarin Therap eutic range 2.0 to 3. 0 or 2.5 to 3.5, dep ending upon the indica tions. Lab Interpretation (test Abnormal code = 82915-8) [facility] 10:56:58 Test Item Value Reference Range Interpretation Comments Fibrinogen (test code = 2653976590) 233 mg/dL 167-453 Lab Interpretation (test code = Normal 67426-0) [facility] 10:56:58 Test Item Value Reference Range Interpretation Comments Fibrinogen (test code = 1094521008) 233 mg/dL 167-453 Lab Interpretation (test code = Normal 13770-3) [facility] 10:56:58 Test Item Value Reference Range Interpretation Comments Fibrinogen (test code = 1488346269) 233 mg/dL 167-453 Lab Interpretation (test code = Normal 92022-6) [facility] THRM[facility] [id number] 10:55:23 Test Item Value Reference Range Interpretation Comments APTT Patient (test code = See_Comment [ Automated message] 3-2) The system [employer] generated this result transmitted ref erence range: 26 - 36 Seconds. The re ference range was not u sed to interpret this result as normal/abnor mal. Lab Interpretation (test Normal code = 01325-9) [facility] [id number] 10:55:23 Test Item Value Reference Range Interpretation Comments APTT Patient (test code = See_Comment [ Automated message] 3-2) The system [employer] generated this result transmitted ref erence range: 26 - 36 Seconds. The re ference range was not u sed to interpret this result as normal/abnor mal. Lab Interpretation (test Normal code = 08224-9) [facility] [id number] 10:55:23 Test Item Value Reference Range Interpretation Comments APTT Patient (test code = See_Comment [ Automated message] 3-2) The system [employer] generated this result transmitted ref erence range: 26 - 36 Seconds. The re ference range was not u sed to interpret this result as normal/abnor mal. Lab Interpretation (test Normal code = 41841-2) [facility] 20 + Lactic [id number] 10:32:44 Test Item Value Reference Range Interpretation Comments PH (test code = 2) 7.35-7.45 PCO2 (test code = See_Comment [Automate d 9133927737) message] The sy stem which generated this result transmitted reference range : 35 - 45 mmHg. The reference range was not used to interpret this result as normal/abnormal . PO2 (test code = See_Comment H [Automated 3877332625) message] The sy stem which generated this result transmitted reference range : 80 - 100 mmHg. The reference range was not used to interpret this result as normal/abnormal . HCO3 (test code = See_Comment [Automate d 5530077437) message] The sy stem which generated this result transmitted reference range : 22 - 26 mEq/L. The reference range was not used to interpret this result as normal/abnormal . BE (test code = See_Comment [Automated 9177766821) message] The sy stem which generated this result transmitted reference range : -3.0 - 3.0 mEq/ L. The reference r susan was not used to interpret this result as normal/abnormal . THB (test code = 7.7 g/dL 12.0-16.0 LL 2707841134) %O2HB (test code = 97.4 % 94.0-99.0 4055818975) %COHB ART (test code = 1.4 % 0.0-1.5 6405146186) %METHB ART (test code = 0.3 % 0.4-1.5 L 6899143225) VOL%O2 ART (test code = 11.0 % 15.0-23.0 L 2386917460) NA (test code = 132 mmol/L 135-145 L 4719511811) K+ (test code = 3.9 mmol/L 3.5-5.0 4576319421) AC CA IONZ (test code = 5.40 mg/dL 4.50-5.30 H 6892157462) GLUCOSE (test code = 98 mg/dL 70-110 9855373536) LACTIC ACID (test code 1.16 mmol/L 0.50-2.20 = 6206337038) Lab Interpretation Abnormal (test code = 77662-0) [facility] + Lactic [id number] 10:32:44 Test Item Value Reference Range Interpretation Comments PH (test code = 2) 7.35-7.45 PCO2 (test code = See_Comment [Automate d 8843076048) message] The sy stem which generated this result transmitted reference range : 35 - 45 mmHg. The reference range was not used to interpret this result as normal/abnormal . PO2 (test code = See_Comment H [Automated 8979513702) message] The sy stem which generated this result transmitted reference range : 80 - 100 mmHg. The reference range was not used to interpret this result as normal/abnormal . HCO3 (test code = See_Comment [Automate d 1652583650) message] The sy stem which generated this result transmitted reference range : 22 - 26 mEq/L. The reference range was not used to interpret this result as normal/abnormal . BE (test code = See_Comment [Automated 0669277252) message] The sy stem which generated this result transmitted reference range : -3.0 - 3.0 mEq/ L. The reference r susan was not used to interpret this result as normal/abnormal . THB (test code = 7.7 g/dL 12.0-16.0 LL 8142354010) %O2HB (test code = 97.4 % 94.0-99.0 3269121404) %COHB ART (test code = 1.4 % 0.0-1.5 6296788787) %METHB ART (test code = 0.3 % 0.4-1.5 L 0660026410) VOL%O2 ART (test code = 11.0 % 15.0-23.0 L 2046366776) NA (test code = 132 mmol/L 135-145 L 7011773677) K+ (test code = 3.9 mmol/L 3.5-5.0 7989633100) AC CA IONZ (test code = 5.40 mg/dL 4.50-5.30 H 5026970742) GLUCOSE (test code = 98 mg/dL 70-110 3877405100) LACTIC ACID (test code 1.16 mmol/L 0.50-2.20 = 9603592424) Lab Interpretation Abnormal (test code = 86438-5) [facility] + Lactic [id number] 10:32:44 Test Item Value Reference Range Interpretation Comments PH (test code = 2) 7.35-7.45 PCO2 (test code = See_Comment [Automate d 9685205497) message] The sy stem which generated this result transmitted reference range : 35 - 45 mmHg. The reference range was not used to interpret this result as normal/abnormal . PO2 (test code = See_Comment H [Automated 9602300411) message] The sy stem which generated this result transmitted reference range : 80 - 100 mmHg. The reference range was not used to interpret this result as normal/abnormal . HCO3 (test code = See_Comment [Automate d 8084710579) message] The sy stem which generated this result transmitted reference range : 22 - 26 mEq/L. The reference range was not used to interpret this result as normal/abnormal . BE (test code = See_Comment [Automated 8467442393) message] The sy stem which generated this result transmitted reference range : -3.0 - 3.0 mEq/ L. The reference r susan was not used to interpret this result as normal/abnormal . THB (test code = 7.7 g/dL 12.0-16.0 LL 3704659707) %O2HB (test code = 97.4 % 94.0-99.0 2200976670) %COHB ART (test code = 1.4 % 0.0-1.5 2292541190) %METHB ART (test code = 0.3 % 0.4-1.5 L 7636600742) VOL%O2 ART (test code = 11.0 % 15.0-23.0 L 3451589194) NA (test code = 132 mmol/L 135-145 L 6256259926) K+ (test code = 3.9 mmol/L 3.5-5.0 4422996684) AC CA IONZ (test code = 5.40 mg/dL 4.50-5.30 H 4326137092) GLUCOSE (test code = 98 mg/dL 70-110 9530864562) LACTIC ACID (test code 1.16 mmol/L 0.50-2.20 = 8866831594) Lab Interpretation Abnormal (test code = 85541-8) [facility] Time / [id number] 10:25:01 Test Item Value Reference Range Interpretation [...] tions. Lab Interpretation (test Abnormal code = 76857-2) [facility] Time / [id number] 10:25:01 Test Item Value Reference Range Interpretation Comments PROTIME PATIENT (test See_Comment L [Auto mated message] code = 5964-2) The system [employer] generated this result transmitted ref erence range: 12.0 - 1 4.7 Seconds. The reference range was not used to int erpret this result as normal/abnormal . INR (test code = 6301-6) Nor mal INR <1.1; Warfarin Therap eutic range 2.0 to 3. 0 or 2.5 to 3.5, dep ending upon the indica tions. Lab Interpretation (test Abnormal code = 05467-2) [facility] Time / [id number] 10:25:01 Test Item Value Reference Range Interpretation Comments PROTIME PATIENT (test See_Comment L [Auto mated message] code = 5964-2) The system [employer] generated this result transmitted ref erence range: 12.0 - 1 4.7 Seconds. The reference range was not used to int erpret this result as normal/abnormal . INR (test code = 6301-6) Nor mal INR <1.1; Warfarin Therap eutic range 2.0 to 3. 0 or 2.5 to 3.5, dep ending upon the indica tions. Lab Interpretation (test Abnormal code = 65186-4) [facility] Plasma (in units)~2021-10-08 09:48:16 Test Item Value Reference Range Interpretation Comments Unit Blood Type (test A Pos code = 4410) ISBT Blood Type Code (test code = 900077) Unit Number (test code [id number] = 4411) Blood Expiration Date & Time (test code = 149693) Status Information Issued (test code = 4412) Product Identification FFP (test code = 4413) Product Code (test J9726U44 Performed at [facility] code = 4414) Laboratory Services - [facility] Blood [address] [place] [address]Nyso Free: [phone] A No. [id number] [facility] Plasma (in units)~2021-10-08 09:48:16 Test Item Value Reference Range Interpretation Comments Unit Blood Type (test A Pos code = 4410) ISBT Blood Type Code (test code = 891228) Unit Number (test code [id number] = 4411) Blood Expiration Date & Time (test code = 837598) Status Information Issued (test code = 4412) Product Identification FFP (test code = 4413) Product Code (test N7102H34 Performed at [facility] code = 4414) Laboratory Services - [address] [address]Oxfc Free: [phone] A No. [id number] [facility] Plasma (in units)~2021-10-08 09:48:16 Test Item Value Reference Range Interpretation Comments Unit Blood Type (test A Pos code = 4410) ISBT Blood Type Code (test code = 961166) Unit Number (test code [id number] = 4411) Blood Expiration Date & Time (test code = 601996) Status Information Issued (test code = 4412) Product Identification FFP (test code = 4413) Product Code (test P5723H13 Performed at [facility] code = 4414) Laboratory Services - [address] [address]Lyff Free: [phone] A No. [id number] [facility] Packed RBC (in units)2021-10-08 09:47:11 Test Item Value Reference Range Interpretation Comments Cross Match Result Compatible (test code = 4409) ISBT Blood Type Code (test code = 472492) Unit Blood Type (test A Pos code = 4410) Unit Number (test [id number] code = 4411) Blood Expiration Date & Time (test code = 772678) Status Information Issued (test code = 4412) Product Red Blood Cells Identification (test code = 4413) Product Code (test W3622B38 Performed at [facility] code = 4414) Laboratory Services - [facility] Blood [address] [address]Yovx Free: [phone] A No. [id number] [facility] Packed RBC (in units)2021-10-08 09:47:11 Test Item Value Reference Range Interpretation Comments Cross Match Result Compatible (test code = 4409) ISBT Blood Type Code (test code = 955538) Unit Blood Type (test A Pos code = 4410) Unit Number (test [id number] code = 4411) Blood Expiration Date & Time (test code = 004703) Status Information Issued (test code = 4412) Product Red Blood Cells Identification (test code = 4413) Product Code (test R2771P90 Performed at [facility] code = 4414) Laboratory Services - [facility] Blood [address] [address]Xsmj Free: [phone] A No. [id number] [facility] Packed RBC (in units)2021-10-08 09:47:11 Test Item Value Reference Range Interpretation Comments Cross Match Result Compatible (test code = 4409) ISBT Blood Type Code (test code = 969082) Unit Blood Type (test A Pos code = 4410) Unit Number (test [id number] code = 4411) Blood Expiration Date & Time (test code = 423159) Status Information Issued (test code = 4412) Product Red Blood Cells Identification (test code = 4413) Product Code (test R7330I13 Performed at [facility] code = 4414) Laboratory Services [facility] Blood [address] [address]Qisv Free: [phone] A No. [id number] [facility] CampusFIBRINOGEN2022-06-24 08:38:17 FibrinogenComment: PT/INR failed. Fib autoverified. Need new order. Spoke to MCKENZIE Mireles/Dr. Streeter. This is a corrected result. ?Previous result was 165 mg/dL on 10/08/2021 at 03[facility] SERVICESThe [facility] [id number] 08:38:17FibrinogenComment: PT/INR failed. Fib autoverified. Need new order. Spoke to MCKENZIE Mireles/Dr. Streeter. This is a corrected result. ?Previous result was 165 mg/dL on 10/08/2021 at 0320 [facility] LABORATORY SERVICESThe [facility] CampusFIBRINOGEN2022-06-24 08:38:17FibrinogenComment: PT/INR failed. Fib autoverified. Need new order. Spoke to MCKENZIE Mireles/Dr. Streeter. This is a corrected result. ?Previous result was 165 mg/dL on 10/08/2021 at [facility]ORY SERVICESUnGonzales Memorial HospitalCBC WITHOUT [id number] 08:34:10 Test Item Value Reference Range Interpretation Comments WBC (test code = See_Comment [Automated message] 6690-2) The system [employer] generated this result transmitted ref erence range: 4.30 - 1 1.10 10*3/?L. The reference range was not used to int erpret this result as normal/abnormal . RBC (test code = 789-8) See_Comment L [Au tomated message] The system [employer] generated this result transmitted ref erence range: [...] See_Comment L [Au tomated message] The system [employer] generated this result transmitted ref erence range: 166 - 35 8 10*3/?L. The reference range was not used to int erpret this result as normal/abnormal . MPV (test code = 11.4 fL 9.5-12.9 06458-2) RDW-CV (test code = 14.8 % 12.0-15.5 788-0) RDW-SD (test code = 47.3 fL 39.0-49.9 08358-6) NRBC x10^3 (test code = <0.01 See_Comment [Au tomated message] 8684582828) The system [employer] generated this result transmitted ref erence range: 10*3/?L. The reference range was not used to int erpret this result as normal/abnormal . NRBC/100 WBC (test code See_Comment [Au tomated message] = 1763534964) The system [employer] generated this result transmitted ref erence range: 0.0 - 10 .0 /100 WBCs. The reference range was not used to int erpret this result as normal/abnormal . IPF % (test code = 5.9 % 1.3-7.7 Platelet count [id number]) measured by fluorescence me thod. Lab Interpretation Abnormal (test code = 65792-3) [facility] WITHOUT [id number] 08:34:10 Test Item Value Reference Range Interpretation Comments WBC (test code = See_Comment [Automated message] 6690-2) The system [employer] generated this result transmitted ref erence range: 4.30 - 1 1.10 10*3/?L. The reference range was not used to int erpret this result as normal/abnormal . RBC (test code = 789-8) See_Comment L [Au tomated message] The system [employer] generated this result transmitted ref erence range: [...] See_Comment L [Au tomated message] The system [employer] generated this result transmitted ref erence range: 166 - 35 8 10*3/?L. The reference range was not used to int erpret this result as normal/abnormal . MPV (test code = 11.4 fL 9.5-12.9 01711-9) RDW-CV (test code = 14.8 % 12.0-15.5 788-0) RDW-SD (test code = 47.3 fL 39.0-49.9 34942-2) NRBC x10^3 (test code = <0.01 See_Comment [Au tomated message] 3355770983) The system [employer] generated this result transmitted ref erence range: 10*3/?L. The reference range was not used to int erpret this result as normal/abnormal . NRBC/100 WBC (test code See_Comment [Au tomated message] = 6337138443) The system [employer] generated this result transmitted ref erence range: 0.0 - 10 .0 /100 WBCs. The reference range was not used to int erpret this result as normal/abnormal . IPF % (test code = 5.9 % 1.3-7.7 Platelet count [id number]) measured by fluorescence me thod. Lab Interpretation Abnormal (test code = 99006-9) [facility] WITHOUT [id number] 08:34:10 Test Item Value Reference Range Interpretation Comments WBC (test code = See_Comment [Automated message] 6690-2) The system [employer] generated this result transmitted ref erence range: 4.30 - 1 1.10 10*3/?L. The reference range was not used to int erpret this result as normal/abnormal . RBC (test code = 789-8) See_Comment L [Au tomated message] The system [employer] generated this result transmitted ref erence range: [...] See_Comment L [Au tomated message] The system [employer] generated this result transmitted ref erence range: 166 - 35 8 10*3/?L. The reference range was not used to int erpret this result as normal/abnormal . MPV (test code = 11.4 fL 9.5-12.9 45513-7) RDW-CV (test code = 14.8 % 12.0-15.5 788-0) RDW-SD (test code = 47.3 fL 39.0-49.9 01005-2) NRBC x10^3 (test code = <0.01 See_Comment [Au tomated message] 9420475592) The system [employer] generated this result transmitted ref erence range: 10*3/?L. The reference range was not used to int erpret this result as normal/abnormal . NRBC/100 WBC (test code See_Comment [Au tomated message] = 9878742437) The system [employer] generated this result transmitted ref erence range: 0.0 - 10 .0 /100 WBCs. The reference range was not used to int erpret this result as normal/abnormal . IPF % (test code = 5.9 % 1.3-7.7 Platelet count 4498934994) measured by fluorescence me thod. Lab Interpretation Abnormal (test code = 20512-7) [facility] Cryoprecipitate (in units)~2021-10-08 07:24:24 Test Item Value Reference Range Interpretation Comments Unit Blood Type (test A code = 4410) ISBT Blood Type Code A000 (test code = 927971) Unit Number (test [id number] code = 4411) Blood Expiration Date & Time (test code = 521950) Status Information Issued (test code = 4412) Product Cryoprecipitate Identification (test code = 4413) Product Code (test R4119R70 Performed at [facility] code = 4414) Laboratory Services - [facility] Blood [address] [address]Zllo Free: [phone] A No. [id number] [facility] Cryoprecipitate (in units)~2021-10-08 07:24:24 Test Item Value Reference Range Interpretation Comments Unit Blood Type (test A code = 4410) ISBT Blood Type Code A000 (test code = 763591) Unit Number (test [id number] code = 4411) Blood Expiration Date & Time (test code = 597227) Status Information Issued (test code = 4412) Product Cryoprecipitate Identification (test code = 4413) Product Code (test M1427B25 Performed at [facility] code = 4414) Laboratory Services - [facility] Blood [address] [address]Scsn Free: [phone] A No. [id number] [facility] Cryoprecipitate (in units)~2021-10-08 07:24:24 Test Item Value Reference Range Interpretation Comments Unit Blood Type (test A code = 4410) ISBT Blood Type Code A000 (test code = 199806) Unit Number (test [id number] code = 4411) Blood Expiration Date & Time (test code = 251767) Status Information Issued (test code = 4412) Product Cryoprecipitate Identification (test code = 4413) Product Code (test A1736E30 Performed at [facility] code = 4414) Laboratory Services - [facility] Blood [address] [address]Fvvi Free: [phone] A No. [id number] [facility] (NA, K, CL, CO2, GLUCOSE, BUN, CREATININE, CA)2021-10-08 07:14:23 Test Item Value Reference Range Interpretation Comments NA (test code = 134 mmol/L 135-145 L 0535179580) K (test code = 4.6 mmol/L 3.5-5.0 0672754885) CL (test code = 109 mmol/L 98-108 H 3801254600) CO2 TOTAL (test code = 21 mmol/L 23-31 L 5613006898) AGAP (test code = 2-16 3955209797) BUN (test code = 9 mg/dL 7-23 2373284319) GLUCOSE (test code = 206 mg/dL 70-110 H 1852932941) CREATININE (test code = 0.61 mg/dL 0.50-1.04 1061739194) CALCIUM (test code = 7.5 mg/dL 8.6-10.6 L 0256371685) eGFR (test code = mL/min/1.73m2 2992277561) MICKY (test code = MICKY) Association of [...] tests). Lab Interpretation Abnormal (test code = 17756-2) [facility] METABOLIC PANEL (NA, K, CL, CO2, GLUCOSE, BUN, CREATININE, CA)2021-10-08 07:14:23 Test Item Value Reference Range Interpretation Comments NA (test code = 134 mmol/L 135-145 L 4290583096) K (test code = 4.6 mmol/L 3.5-5.0 1926932646) CL (test code = 109 mmol/L 98-108 H 6173617366) CO2 TOTAL (test code = 21 mmol/L 23-31 L 1792008592) AGAP (test code = 2-16 9338919145) BUN (test code = 9 mg/dL 7-23 4809989273) GLUCOSE (test code = 206 mg/dL 70-110 H 5717529532) CREATININE (test code = 0.61 mg/dL 0.50-1.04 6845151477) CALCIUM (test code = 7.5 mg/dL 8.6-10.6 L 3351470178) eGFR (test code = mL/min/1.73m2 5049590626) MICKY (test code = MICKY) Association of [...] tests). Lab Interpretation Abnormal (test code = 15668-6) [facility] METABOLIC PANEL (NA, K, CL, CO2, GLUCOSE, BUN, CREATININE, CA)2021-10-08 07:14:23 Test Item Value Reference Range Interpretation Comments NA (test code = 134 mmol/L 135-145 L 9398306885) K (test code = 4.6 mmol/L 3.5-5.0 9754569603) CL (test code = 109 mmol/L 98-108 H 2694708824) CO2 TOTAL (test code = 21 mmol/L 23-31 L 3661160708) AGAP (test code = 2-16 5996502336) BUN (test code = 9 mg/dL 7-23 0979699221) GLUCOSE (test code = 206 mg/dL 70-110 H 5844437284) CREATININE (test code = 0.61 mg/dL 0.50-1.04 9242165908) CALCIUM (test code = 7.5 mg/dL 8.6-10.6 L 3900895800) eGFR (test code = mL/min/1.73m2 4581390709) MICKY (test code = MICKY) Association of [...] tests). Lab Interpretation Abnormal (test code = 64860-8) [facility]2022-06-24 06:46:57 Test Item Value Reference Range Interpretation Comments Fibrinogen (test code = 9575800105) 174 mg/dL 167-453 Lab Interpretation (test code = Normal 85083-0) [facility]2022-06-24 06:46:57 Test Item Value Reference Range Interpretation Comments Fibrinogen (test code = 0053710971) 174 mg/dL 167-453 Lab Interpretation (test code = Normal 66374-9) [facility]2022-06-24 06:46:57 Test Item Value Reference Range Interpretation Comments Fibrinogen (test code = 6946328466) 174 mg/dL 167-453 Lab Interpretation (test code = Normal 16561-3) [facility]2022-06-24 06:45:07 Test Item Value Reference Range Interpretation Comments Fibrinogen (test code = 4348916640) 196 mg/dL 167-453 Lab Interpretation (test code = Normal 32456-8) [facility]2022-06-24 06:45:07 Test Item Value Reference Range Interpretation Comments Fibrinogen (test code = 5411593561) 196 mg/dL 167-453 Lab Interpretation (test code = Normal 81167-5) [facility]2022-06-24 06:45:07 Test Item Value Reference Range Interpretation Comments Fibrinogen (test code = 5984271235) 196 mg/dL 167-453 Lab Interpretation (test code = Normal 73614-1) [facility] Platelets (in units)~2021-10-08 06:44:36 Test Item Value Reference Range Interpretation Comments Unit Blood Type (test A Pos code = 4410) ISBT Blood Type Code (test code = 845206) Unit Number (test code [id number] = 4411) Blood Expiration Date & Time (test code = 412628) Status Information Issued (test code = 4412) Product Identification Platelets (test code = 4413) Product Code (test A9319AS6 Performed at [facility] code = 4414) Laboratory Services - [facility] Blood [address] [address]Nnpx Free: [phone] A No. [id number] [facility] Platelets (in units)~2021-10-08 06:44:36 Test Item Value Reference Range Interpretation Comments Unit Blood Type (test A Pos code = 4410) ISBT Blood Type Code (test code = 215580) Unit Number (test code [id number] = 4411) Blood Expiration Date & Time (test code = 976437) Status Information Issued (test code = 4412) Product Identification Platelets (test code = 4413) Product Code (test N7416IS0 Performed at [facility] code = 4414) Laboratory Services - [facility] Blood [address] [address]Pynj Free: [phone] A No. [id number] [facility] hospit[facility] Platelets (in units)~2021-10-08 06:44:36 Test Item Value Reference Range Interpretation Comments Unit Blood Type (test A Pos code = 4410) ISBT Blood Type Code (test code = 807183) Unit Number (test code [id number] = 4411) Blood Expiration Date & Time (test code = 940047) Status Information Issued (test code = 4412) Product Identification Platelets (test code = 4413) Product Code (test D0508GH8 Performed at [facility] code = 4414) Laboratory Services - [facility] Blood [address] [address]Mkbl Free: [phone] A No. [id number] [facility] THRM[facility] [id number] 06:44:01 Test Item Value Reference Range Interpretation Comments APTT Patient (test code = See_Comment [ Automated message] 3173-2) The system [employer] generated this result transmitted ref erence range: 26 - 36 Seconds. The re ference range was not u sed to interpret this result as normal/abnor mal. Lab Interpretation (test Normal code = 79510-5) [facility] CampusProthrombin Time / [id number] 06:44:01 Test Item Value Reference Range Interpretation Comments PROTIME PATIENT (test See_Comment H [Auto mated message] code = 5964-2) The system [employer] generated this result transmitted ref erence range: 10.1 - 1 2.6 Seconds. The reference range was not used to int erpret this result as normal/abnormal . INR (test code = 6301-6) Nor mal INR <1.1; Warfarin Therap eutic range 2.0 to 3. 0 or 2.5 to 3.5, dep ending upon the indica tions. Lab Interpretation (test Abnormal code = 31094-2) [facility] [id number] 06:44:01 Test Item Value Reference Range Interpretation Comments APTT Patient (test code = See_Comment [ Automated message] 3173-2) The system [employer] generated this result transmitted ref erence range: 26 - 36 Seconds. The re ference range was not u sed to interpret this result as normal/abnor mal. Lab Interpretation (test Normal code = 27842-8) [facility]Proth[facility] Time / [id number] 06:44:01 Test Item Value Reference Range Interpretation Comments PROTIME PATIENT (test See_Comment H [Auto mated message] code = 5964-2) The system [employer] generated this result transmitted ref erence range: 10.1 - 1 2.6 Seconds. The reference range was not used to int erpret this result as normal/abnormal . INR (test code = 6301-6) Nor mal INR <1.1; Warfarin Therap eutic range 2.0 to 3. 0 or 2.5 to 3.5, dep ending upon the indica tions. Lab Interpretation (test Abnormal code = 59482-5) [facility] [id number] 06:44:01 Test Item Value Reference Range Interpretation Comments APTT Patient (test code = See_Comment [ Automated message] 3173-2) The system [employer] generated this result transmitted ref erence range: 26 - 36 Seconds. The re ference range was not u sed to interpret this result as normal/abnor mal. Lab Interpretation (test Normal code = 00943-2) [facility] CampusProthrombin Time / [id number] 06:44:01 Test Item Value Reference Range Interpretation [...] tions. Lab Interpretation (test Abnormal code = 74258-9) [facility] CampusCBC WITH [id number] 06:33:16 Test Item Value Reference Range Interpretation [...] (test code = 51.9 fL 39.0-49.9 H 04831-5) RDW-CV (test code = 16.2 % 12.0-15.5 H 788-0) PLT (test code = See_Comment [Automated 777-3) message] The system which generated this result transmit ramana reference range : 166 - 358 10*3/ ?L. The reference range was not u sed to interpret th is result as normal/abnormal . MPV (test code = 11.3 fL 9.5-12.9 88556-5) NRBC/100 WBC (test See_Comment [Automat ed code = 2124022575) message] The system which generated this result transmit ramana reference range : 0.0 - 10.0 /100 WBCs. The reference range was not used to interpret this result as normal/abnormal . NRBC x10^3 (test code <0.01 See_Comment [Auto mated = 3453303259) message] The system which generated this result transmit ramana reference range : 10*3/?L. The reference range was not used to interpret this result as normal/abnormal . GRAN MAT (NEUT) % 86.0 % (test code = 770-8) IMM GRAN % (test code 0.80 % = 7337892551) LYMPH % (test code = 3.8 % 736-9) MONO % (test code = 9.3 % 5905-5) EOS % (test code = 0.0 % 713-8) BASO % (test code = 0.1 % 706-2) GRAN MAT x10^3(ANC) 11.38 10*3/uL 1.88-7.09 H (test code = 4269213947) IMM GRAN x10^3 (test 0.10 10*3/uL 0.00-0.06 H code = 1084408749) LYMPH x10^3 (test code 0.50 10*3/uL 1.32-3.29 L = 731-0) MONO x10^3 (test code 1.23 10*3/uL 0.33-0.92 H = 742-7) EOS x10^3 (test code = <0.03 0.03-0.39 L 711-2) BASO x10^3 (test code <0.03 0.01-0.07 = 704-7) Lab Interpretation Abnormal (test code = 66098-8) [facility] WITH [id number] 06:33:16 Test Item Value Reference Range Interpretation [...] (test code = 51.9 fL 39.0-49.9 H 72837-2) RDW-CV (test code = 16.2 % 12.0-15.5 H 788-0) PLT (test code = See_Comment [Automated 777-3) message] The system which generated this result transmit ramana reference range : 166 - 358 10*3/ ?L. The reference range was not u sed to interpret th is result as normal/abnormal . MPV (test code = 11.3 fL 9.5-12.9 41914-7) NRBC/100 WBC (test See_Comment [Automat ed code = 7124876998) message] The system which generated this result transmit ramana reference range : 0.0 - 10.0 /100 WBCs. The reference range was not used to interpret this result as normal/abnormal . NRBC x10^3 (test code <0.01 See_Comment [Auto mated = 6784088084) message] The system which generated this result transmit ramana reference range : 10*3/?L. The reference range was not used to interpret this result as normal/abnormal . GRAN MAT (NEUT) % 86.0 % (test code = 770-8) IMM GRAN % (test code 0.80 % = 7315530574) LYMPH % (test code = 3.8 % 736-9) MONO % (test code = 9.3 % 5905-5) EOS % (test code = 0.0 % 713-8) BASO % (test code = 0.1 % 706-2) GRAN MAT x10^3(ANC) 11.38 10*3/uL 1.88-7.09 H (test code = 1476618291) IMM GRAN x10^3 (test 0.10 10*3/uL 0.00-0.06 H code = 4222806958) LYMPH x10^3 (test code 0.50 10*3/uL 1.32-3.29 L = 731-0) MONO x10^3 (test code 1.23 10*3/uL 0.33-0.92 H = 742-7) EOS x10^3 (test code = <0.03 0.03-0.39 L 711-2) BASO x10^3 (test code <0.03 0.01-0.07 = 704-7) Lab Interpretation Abnormal (test code = 17003-7) [facility] WITH [id number] 06:33:16 Test Item Value Reference Range Interpretation [...] (test code = 51.9 fL 39.0-49.9 H 76254-8) RDW-CV (test code = 16.2 % 12.0-15.5 H 788-0) PLT (test code = See_Comment [Automated 777-3) message] The system which generated this result transmit ramana reference range : 166 - 358 10*3/ ?L. The reference range was not u sed to interpret th is result as normal/abnormal . MPV (test code = 11.3 fL 9.5-12.9 40150-6) NRBC/100 WBC (test See_Comment [Automat ed code = 6190269976) message] The system which generated this result transmit ramana reference range : 0.0 - 10.0 /100 WBCs. The reference range was not used to interpret this result as normal/abnormal . NRBC x10^3 (test code <0.01 See_Comment [Auto mated = 6945017307) message] The system which generated this result transmit ramana reference range : 10*3/?L. The reference range was not used to interpret this result as normal/abnormal . GRAN MAT (NEUT) % 86.0 % (test code = 770-8) IMM GRAN % (test code 0.80 % = 2028615136) LYMPH % (test code = 3.8 % 736-9) MONO % (test code = 9.3 % 5905-5) EOS % (test code = 0.0 % 713-8) BASO % (test code = 0.1 % 706-2) GRAN MAT x10^3(ANC) 11.38 10*3/uL 1.88-7.09 H (test code = 2416457141) IMM GRAN x10^3 (test 0.10 10*3/uL 0.00-0.06 H code = 4670399344) LYMPH x10^3 (test code 0.50 10*3/uL 1.32-3.29 L = 731-0) MONO x10^3 (test code 1.23 10*3/uL 0.33-0.92 H = 742-7) EOS x10^3 (test code = <0.03 0.03-0.39 L 711-2) BASO x10^3 (test code <0.03 0.01-0.07 = 704-7) Lab Interpretation Abnormal (test code = 83074-4) [facility] [id number] 06:25:43 Test Item Value Reference Range Interpretation Comments PH (test code = 7.32-7.42 L 8918397422) PCO2 SHAY (test code = See_Comment [Auto mated 2878302446) message] The sy stem which generated this result transmitted reference range : 41 - 51 mmHg. The reference range was not used to interpret this result as normal/abnormal . PO2 SHAY (test code = See_Comment L [Autom ated 0757534638) message] The sy stem which generated this result transmitted reference range : 25 - 40 mmHg. The reference range was not used to interpret this result as normal/abnormal . HCO3 SHAY (test code = See_Comment L [Auto mated 3519453148) message] The sy stem which generated this result transmitted reference range : 24 - 28 mEq/L. The reference range was not used to interpret this result as normal/abnormal . AC VBE(BEAKER) (test mEq/L code = 1205086740) THB SHAY (test code = 6.1 g/dL 12.0-16.0 LL 4378322261) %O2HB SHAY (test code = 26.6 % 52.0-63.0 L 8764029454) %COHB SHAY (test code = 1.0 % 0.0-1.5 9240234090) %METHB SHAY (test code = 0.9 % 0.4-1.5 2046894774) VOL%O2 SHAY (test code = 2.3 % 6.0-12.0 L 5315113231) NA (test code = 130 mmol/L 135-145 L 4872737036) K+ (test code = 4.3 mmol/L 3.5-5.0 5841623830) AC CA IONZ (test code = 4.60 mg/dL 4.50-5.30 3554031822) GLUCOSE (test code = 239 mg/dL 70-110 H 8141696030) LACTIC ACID (test code 3.16 mmol/L 0.50-2.20 H = 0328704372) Lab Interpretation Abnormal (test code = 77341-1) [facility] PANEL 21 + LACTIC [id number] 06:25:43 Test Item Value Reference Range Interpretation Comments PH (test code = 7.32-7.42 L 6472482971) PCO2 SHAY (test code = See_Comment [Auto mated 4345934831) message] The sy stem which generated this result transmitted reference range : 41 - 51 mmHg. The reference range was not used to interpret this result as normal/abnormal . PO2 SHAY (test code = See_Comment L [Autom ated 2125053454) message] The sy stem which generated this result transmitted reference range : 25 - 40 mmHg. The reference range was not used to interpret this result as normal/abnormal . HCO3 SHAY (test code = See_Comment L [Auto mated 2565584878) message] The sy stem which generated this result transmitted reference range : 24 - 28 mEq/L. The reference range was not used to interpret this result as normal/abnormal . AC VBE(BEAKER) (test mEq/L code = 6162713934) THB SHAY (test code = 6.1 g/dL 12.0-16.0 LL 2714045267) %O2HB SHAY (test code = 26.6 % 52.0-63.0 L 3574623812) %COHB SHAY (test code = 1.0 % 0.0-1.5 8661607727) %METHB SHAY (test code = 0.9 % 0.4-1.5 0218863340) VOL%O2 SHAY (test code = 2.3 % 6.0-12.0 L 5257712080) NA (test code = 130 mmol/L 135-145 L 5052535025) K+ (test code = 4.3 mmol/L 3.5-5.0 3511066402) AC CA IONZ (test code = 4.60 mg/dL 4.50-5.30 7822792729) GLUCOSE (test code = 239 mg/dL 70-110 H 8722742194) LACTIC ACID (test code 3.16 mmol/L 0.50-2.20 H = 5245016796) Lab Interpretation Abnormal (test code = 42484-3) [facility] [id number] 06:25:43 Test Item Value Reference Range Interpretation Comments PH (test code = 7.32-7.42 L 2709305631) PCO2 SHAY (test code = See_Comment [Auto mated 5526691910) message] The sy stem which generated this result transmitted reference range : 41 - 51 mmHg. The reference range was not used to interpret this result as normal/abnormal . PO2 SHAY (test code = See_Comment L [Autom ated 4783625553) message] The sy stem which generated this result transmitted reference range : 25 - 40 mmHg. The reference range was not used to interpret this result as normal/abnormal . HCO3 SHAY (test code = See_Comment L [Auto mated 3173918987) message] The sy stem which generated this result transmitted reference range : 24 - 28 mEq/L. The reference range was not used to interpret this result as normal/abnormal . AC VBE(BEAKER) (test mEq/L code = 8551480797) THB SHAY (test code = 6.1 g/dL 12.0-16.0 LL 5420133769) %O2HB SHAY (test code = 26.6 % 52.0-63.0 L 6153419532) %COHB SHAY (test code = 1.0 % 0.0-1.5 3114071174) %METHB SHAY (test code = 0.9 % 0.4-1.5 3259507784) VOL%O2 SHAY (test code = 2.3 % 6.0-12.0 L 6747747456) NA (test code = 130 mmol/L 135-145 L 4987505811) K+ (test code = 4.3 mmol/L 3.5-5.0 7274014203) AC CA IONZ (test code = 4.60 mg/dL 4.50-5.30 1159056769) GLUCOSE (test code = 239 mg/dL 70-110 H 4724457461) LACTIC ACID (test code 3.16 mmol/L 0.50-2.20 H = 3704124064) Lab Interpretation Abnormal (test code = 39842-9) [facility] METABOLIC PANEL (NA, K, CL, CO2, GLUCOSE, BUN, CREATININE, CA)2021-10-08 05:38:11 Test Item Value Reference Range Interpretation Comments NA (test code = 132 mmol/L 135-145 L 5184859506) K (test code = 4.7 mmol/L 3.5-5.0 9131194551) CL (test code = 107 mmol/L 98-108 8549148414) CO2 TOTAL (test code = 20 mmol/L 23-31 L 1265437253) AGAP (test code = 2-16 6487015343) BUN (test code = 8 mg/dL 7-23 1059132509) GLUCOSE (test code = 322 mg/dL 70-110 H 0950560425) CREATININE (test code = 0.65 mg/dL 0.50-1.04 6438803715) CALCIUM (test code = 7.7 mg/dL 8.6-10.6 L 0403585811) eGFR (test code = mL/min/1.73m2 1670851958) MICKY (test code = MICKY) Association of [...] tests). Lab Interpretation Abnormal (test code = 71507-9) [facility] Test Item Value Reference Range Interpretation Comments MAGNESIUM (test code = 0200128110) 1.6 mg/dL 1.7-2.4 L Lab Interpretation (test code = Abnormal 88448-6) [facility] METABOLIC PANEL (NA, K, CL, CO2, GLUCOSE, BUN, CREATININE, CA)2021-10-08 05:38:11 Test Item Value Reference Range Interpretation Comments NA (test code = 132 mmol/L 135-145 L 1609700266) K (test code = 4.7 mmol/L 3.5-5.0 5682609788) CL (test code = 107 mmol/L 98-108 7072578253) CO2 TOTAL (test code = 20 mmol/L 23-31 L 3658527421) AGAP (test code = 2-16 1933147022) BUN (test code = 8 mg/dL 7-23 8692478895) GLUCOSE (test code = 322 mg/dL 70-110 H 6877511553) CREATININE (test code = 0.65 mg/dL 0.50-1.04 1617316530) CALCIUM (test code = 7.7 mg/dL 8.6-10.6 L 3598588172) eGFR (test code = mL/min/1.73m2 6356961494) MICKY (test code = MICKY) Association of [...] tests). Lab Interpretation Abnormal (test code = 38034-5) [facility] Test Item Value Reference Range Interpretation Comments MAGNESIUM (test code = 6193227344) 1.6 mg/dL 1.7-2.4 L Lab Interpretation (test code = Abnormal 06572-4) [facility] (NA, K, CL, CO2, GLUCOSE, BUN, CREATININE, CA)2021-10-08 05:38:11 Test Item Value Reference Range Interpretation Comments NA (test code = 132 mmol/L 135-145 L 0848176552) K (test code = 4.7 mmol/L 3.5-5.0 6468795234) CL (test code = 107 mmol/L 98-108 4922454420) CO2 TOTAL (test code = 20 mmol/L 23-31 L 2181868923) AGAP (test code = 2-16 1717181335) BUN (test code = 8 mg/dL 7-23 5436008497) GLUCOSE (test code = 322 mg/dL 70-110 H 3385804707) CREATININE (test code = 0.65 mg/dL 0.50-1.04 6346903598) CALCIUM (test code = 7.7 mg/dL 8.6-10.6 L 7641947647) eGFR (test code = mL/min/1.73m2 4992393278) MICKY (test code = MICKY) Association of [...] tests). Lab Interpretation Abnormal (test code = 18598-3) [facility] 05:38[facility]11 Test Item Value Reference Range Interpretation Comments MAGNESIUM (test code = 7046944020) 1.6 mg/dL 1.7-2.4 L Lab Interpretation (test code = Abnormal 49309-6) [facility] WITH [id number] 04:49:24 Test Item Value Reference Range Interpretation Comments WBC (test code = See_Comment [Automated 4090-2) message] The sy stem which generated this result transmitted reference range : 4.30 - 11.10 10*3/?L. The reference range was not used to interpret this result as normal/abnormal . RBC (test code = See_Comment L [Automated 796-8) message] The sy stem which generated this [...] (test code = 59.6 fL 39.0-49.9 H 02568-8) RDW-CV (test code = 17.4 % 12.0-15.5 H 788-0) PLT (test code = See_Comment [Automated 777-3) message] The sy stem which generated this result transmitted reference range : 166 - 358 10*3/ ?L. The reference r susan was not used to interpret this result as normal/abnormal . MPV (test code = 11.5 fL 9.5-12.9 61549-7) NRBC/100 WBC (test See_Comment [Automat ed code = 0481764559) message] The system which generated this result transmitted reference range : 0.0 - 10.0 /100 WBCs. The refer ence range was not u sed to interpret th is result as normal/abnormal . NRBC x10^3 (test code <0.01 See_Comment [Auto mated = 0405990391) message] The s ystem which generated this result transmitted reference range : 10*3/?L. The reference range was not used to interpret this result as normal/abnormal . GRAN MAT (NEUT) % 90.2 % (test code = 770-8) IMM GRAN % (test code 0.60 % = 2227189782) LYMPH % (test code = 3.9 % 736-9) MONO % (test code = 5.2 % 5905-5) EOS % (test code = 0.0 % 713-8) BASO % (test code = 0.1 % 706-2) GRAN MAT x10^3(ANC) 8.42 10*3/uL 1.88-7.09 H (test code = 4606310585) IMM GRAN x10^3 (test 0.06 10*3/uL 0.00-0.06 code = 5430030506) LYMPH x10^3 (test code 0.36 10*3/uL 1.32-3.29 L = 731-0) MONO x10^3 (test code 0.49 10*3/uL 0.33-0.92 = 742-7) EOS x10^3 (test code = <0.03 0.03-0.39 L 711-2) BASO x10^3 (test code <0.03 0.01-0.07 = 704-7) Lab Interpretation Abnormal (test code = 99030-1) [facility] WITH [id number] 04:49:24 Test Item Value Reference Range Interpretation [...] (test code = 59.6 fL 39.0-49.9 H 58704-9) RDW-CV (test code = 17.4 % 12.0-15.5 H 788-0) PLT (test code = See_Comment [Automated 777-3) message] The sy stem which generated this result transmitted reference range : 166 - 358 10*3/ ?L. The reference r susan was not used to interpret this result as normal/abnormal . MPV (test code = 11.5 fL 9.5-12.9 07493-7) NRBC/100 WBC (test See_Comment [Automat ed code = 0878701079) message] The system which generated this result transmitted reference range : 0.0 - 10.0 /100 WBCs. The refer ence range was not u sed to interpret th is result as normal/abnormal . NRBC x10^3 (test code <0.01 See_Comment [Auto mated = 4285135735) message] The s ystem which generated this result transmitted reference range : 10*3/?L. The reference range was not used to interpret this result as normal/abnormal . GRAN MAT (NEUT) % 90.2 % (test code = 770-8) IMM GRAN % (test code 0.60 % = 6175768937) LYMPH % (test code = 3.9 % 736-9) MONO % (test code = 5.2 % 5905-5) EOS % (test code = 0.0 % 713-8) BASO % (test code = 0.1 % 706-2) GRAN MAT x10^3(ANC) 8.42 10*3/uL 1.88-7.09 H (test code = 5660036366) IMM GRAN x10^3 (test 0.06 10*3/uL 0.00-0.06 code = 8331981719) LYMPH x10^3 (test code 0.36 10*3/uL 1.32-3.29 L = 731-0) MONO x10^3 (test code 0.49 10*3/uL 0.33-0.92 = 742-7) EOS x10^3 (test code = <0.03 0.03-0.39 L 711-2) BASO x10^3 (test code <0.03 0.01-0.07 = 704-7) Lab Interpretation Abnormal (test code = 60277-9) [facility] WITH [id number] 04:49:24 Test Item Value Reference Range Interpretation Comments WBC (test code = See_Comment [Automated 3890-2) message] The sy stem which generated this result transmitted reference range : 4.30 - 11.10 10*3/?L. The reference range was not used to interpret this result as normal/abnormal . RBC (test code = See_Comment L [Automated 779-8) message] The sy stem which generated this [...] (test code = 59.6 fL 39.0-49.9 H 01349-3) RDW-CV (test code = 17.4 % 12.0-15.5 H 788-0) PLT (test code = See_Comment [Automated 777-3) message] The sy stem which generated this result transmitted reference range : 166 - 358 10*3/ ?L. The reference r susan was not used to interpret this result as normal/abnormal . MPV (test code = 11.5 fL 9.5-12.9 85303-8) NRBC/100 WBC (test See_Comment [Automat ed code = 0057892337) message] The system which generated this result transmitted reference range : 0.0 - 10.0 /100 WBCs. The refer ence range was not u sed to interpret th is result as normal/abnormal . NRBC x10^3 (test code <0.01 See_Comment [Auto mated = 5950560221) message] The s ystem which generated this result transmitted reference range : 10*3/?L. The reference range was not used to interpret this result as normal/abnormal . GRAN MAT (NEUT) % 90.2 % (test code = 770-8) IMM GRAN % (test code 0.60 % = 3406194527) LYMPH % (test code = 3.9 % 736-9) MONO % (test code = 5.2 % 5905-5) EOS % (test code = 0.0 % 713-8) BASO % (test code = 0.1 % 706-2) GRAN MAT x10^3(ANC) 8.42 10*3/uL 1.88-7.09 H (test code = 2040113751) IMM GRAN x10^3 (test 0.06 10*3/uL 0.00-0.06 code = 4768327917) LYMPH x10^3 (test code 0.36 10*3/uL 1.32-3.29 L = 731-0) MONO x10^3 (test code 0.49 10*3/uL 0.33-0.92 = 742-7) EOS x10^3 (test code = <0.03 0.03-0.39 L 711-2) BASO x10^3 (test code <0.03 0.01-0.07 = 704-7) Lab Interpretation Abnormal (test code = 45654-9) [facility] Packed RBC (in units), 1 Units 2021-10-08 04:27:22 Test Item Value Reference Range Interpretation Comments Cross Match Result Compatible (test code = 4409) ISBT Blood Type Code (test code = 231700) Unit Blood Type (test A Pos code = 4410) Unit Number (test [id number] code = 4411) Blood Expiration Date & Time (test code = 608353) Status Information Issued (test code = 4412) Product Red Blood Cells Identification (test code = 4413) Product Code (test A4049F07 Performed at [facility] code = 4414) Laboratory Services - [facility] Blood [address] [address]Vrdg Free: [phone] A No. [id number] [facility] Packed RBC (in units), 1 Units 2021-10-08 04:27:22 Test Item Value Reference Range Interpretation Comments Cross Match Result Compatible (test code = 4409) ISBT Blood Type Code (test code = 503114) Unit Blood Type (test A Pos code = 4410) Unit Number (test [id number] code = 4411) Blood Expiration Date & Time (test code = 887469) Status Information Issued (test code = 4412) Product Red Blood Cells Identification (test code = 4413) Product Code (test L1115S11 Performed at [facility] code = 4414) Laboratory Services - [facility] Blood [address] [address]Zplv Free: [phone] A No. [id number] [facility] (in units), 1 Units 2021-10-08 04:27:22 Test Item Value Reference Range Interpretation Comments Cross Match Result Compatible (test code = 4409) ISBT Blood Type Code (test code = 203792) Unit Blood Type (test A Pos code = 4410) Unit Number (test [id number] code = 4411) Blood Expiration Date & Time (test code = 739206) Status Information Issued (test code = 4412) Product Red Blood Cells Identification (test code = 4413) Product Code (test A2155Q24 Performed at [facility] code = 4414) Laboratory Services - [facility] Blood [address] [address]Fpsy Free: [phone] A No. [id number] [facility] GLUCOSE (AUTOMATED)2021-10-08 03:52:59 Test Item Value Reference Range Interpretation Comments POCT GLU (test code = 4651276282) 261 mg/dL 70-110 H Lab Interpretation (test code = Abnormal 35443-6) [facility] GLUCOSE (AUTOMATED)2021-10-08 03:52:59 Test Item Value Reference Range Interpretation Comments POCT GLU (test code = 5422884081) 261 mg/dL 70-110 H Lab Interpretation (test code = Abnormal 45927-2) [facility] GLUCOSE (AUTOMATED)2021-10-08 03:52:59 Test Item Value Reference Range Interpretation Comments POCT GLU (test code = 5257899881) 261 mg/dL 70-110 H Lab Interpretation (test code = Abnormal 84444-5) [facility] WITH [id number] 00:07:18 Test Item Value Reference Range Interpretation [...] (test code = 60.2 fL 39.0-49.9 H 23650-3) RDW-CV (test code = 17.7 % 12.0-15.5 H 788-0) PLT (test code = See_Comment [Automated 777-3) message] The sy stem which generated this result transmitted reference range : 166 - 358 10*3/ ?L. The reference r susan was not used to interpret this result as normal/abnormal . MPV (test code = 11.6 fL 9.5-12.9 59077-7) NRBC/100 WBC (test See_Comment [Automat ed code = 3858975790) message] The system which generated this result transmitted reference range : 0.0 - 10.0 /100 WBCs. The refer ence range was not u sed to interpret th is result as normal/abnormal . NRBC x10^3 (test code <0.01 See_Comment [Auto mated = 7289847482) message] The s ystem which generated this result transmitted reference range : 10*3/?L. The reference range was not used to interpret this result as normal/abnormal . GRAN MAT (NEUT) % 93.5 % (test code = 770-8) IMM GRAN % (test code 0.80 % = 8249491474) LYMPH % (test code = 3.4 % 736-9) MONO % (test code = 2.2 % 5905-5) EOS % (test code = 0.0 % 713-8) BASO % (test code = 0.1 % 706-2) GRAN MAT x10^3(ANC) 9.81 10*3/uL 1.88-7.09 H (test code = 5542391437) IMM GRAN x10^3 (test 0.08 10*3/uL 0.00-0.06 H code = 1225378205) LYMPH x10^3 (test code 0.36 10*3/uL 1.32-3.29 L = 731-0) MONO x10^3 (test code 0.23 10*3/uL 0.33-0.92 L = 742-7) EOS x10^3 (test code = <0.03 0.03-0.39 L 711-2) BASO x10^3 (test code <0.03 0.01-0.07 = 704-7) Lab Interpretation Abnormal (test code = 59444-9) [facility] WITH [id number] 00:07:18 Test Item Value Reference Range Interpretation [...] (test code = 60.2 fL 39.0-49.9 H 37877-1) RDW-CV (test code = 17.7 % 12.0-15.5 H 788-0) PLT (test code = See_Comment [Automated 777-3) message] The sy stem which generated this result transmitted reference range : 166 - 358 10*3/ ?L. The reference r susan was not used to interpret this result as normal/abnormal . MPV (test code = 11.6 fL 9.5-12.9 11275-9) NRBC/100 WBC (test See_Comment [Automat ed code = 8749944143) message] The system which generated this result transmitted reference range : 0.0 - 10.0 /100 WBCs. The refer ence range was not u sed to interpret th is result as normal/abnormal . NRBC x10^3 (test code <0.01 See_Comment [Auto mated = 9211814021) message] The s ystem which generated this result transmitted reference range : 10*3/?L. The reference range was not used to interpret this result as normal/abnormal . GRAN MAT (NEUT) % 93.5 % (test code = 770-8) IMM GRAN % (test code 0.80 % = 0899189754) LYMPH % (test code = 3.4 % 736-9) MONO % (test code = 2.2 % 5905-5) EOS % (test code = 0.0 % 713-8) BASO % (test code = 0.1 % 706-2) GRAN MAT x10^3(ANC) 9.81 10*3/uL 1.88-7.09 H (test code = 5458422345) IMM GRAN x10^3 (test 0.08 10*3/uL 0.00-0.06 H code = 2368945096) LYMPH x10^3 (test code 0.36 10*3/uL 1.32-3.29 L = 731-0) MONO x10^3 (test code 0.23 10*3/uL 0.33-0.92 L = 742-7) EOS x10^3 (test code = <0.03 0.03-0.39 L 711-2) BASO x10^3 (test code <0.03 0.01-0.07 = 704-7) Lab Interpretation Abnormal (test code = 96327-5) [facility] WITH [id number] 00:07:18 Test Item Value Reference Range Interpretation [...] (test code = 60.2 fL 39.0-49.9 H 60497-7) RDW-CV (test code = 17.7 % 12.0-15.5 H 788-0) PLT (test code = See_Comment [Automated 777-3) message] The sy stem which generated this result transmitted reference range : 166 - 358 10*3/ ?L. The reference r susan was not used to interpret this result as normal/abnormal . MPV (test code = 11.6 fL 9.5-12.9 41305-7) NRBC/100 WBC (test See_Comment [Automat ed code = 2725023154) message] The system which generated this result transmitted reference range : 0.0 - 10.0 /100 WBCs. The refer ence range was not u sed to interpret th is result as normal/abnormal . NRBC x10^3 (test code <0.01 See_Comment [Auto mated = 5619406196) message] The s ystem which generated this result transmitted reference range : 10*3/?L. The reference range was not used to interpret this result as normal/abnormal . GRAN MAT (NEUT) % 93.5 % (test code = 770-8) IMM GRAN % (test code 0.80 % = 0028709042) LYMPH % (test code = 3.4 % 736-9) MONO % (test code = 2.2 % 5905-5) EOS % (test code = 0.0 % 713-8) BASO % (test code = 0.1 % 706-2) GRAN MAT x10^3(ANC) 9.81 10*3/uL 1.88-7.09 H (test code = 2810058935) IMM GRAN x10^3 (test 0.08 10*3/uL 0.00-0.06 H code = 0360585068) LYMPH x10^3 (test code 0.36 10*3/uL 1.32-3.29 L = 731-0) MONO x10^3 (test code 0.23 10*3/uL 0.33-0.92 L = 742-7) EOS x10^3 (test code = <0.03 0.03-0.39 L 711-2) BASO x10^3 (test code <0.03 0.01-0.07 = 704-7) Lab Interpretation Abnormal (test code = 15099-5) [facility] Packed RBC (in units), 2 Units 2021-10-07 21:08:55 Test Item Value Reference Range Interpretation Comments Cross Match Result Compatible (test code = 4409) ISBT Blood Type Code (test code = 716247) Unit Blood Type (test A Pos code = 4410) Unit Number (test [id number] code = 4411) Blood Expiration Date & Time (test code = 153148) Status Information Issued (test code = 4412) Product Red Blood Cells Identification (test code = 4413) Product Code (test R0548Z52 Performed at [facility] code = 4414) Laboratory Services - [facility] Blood [address] [place] [address] Free: [phone] A No. [id number] [facility] Packed RBC (in units), 2 Units 2021-10-07 21:08:55 Test Item Value Reference Range Interpretation Comments Cross Match Result Compatible (test code = 4409) ISBT Blood Type Code (test code = 457558) Unit Blood Type (test A Pos code = 4410) Unit Number (test [id number] code = 4411) Blood Expiration Date & Time (test code = 524346) Status Information Issued (test code = 4412) Product Red Blood Cells Identification (test code = 4413) Product Code (test Z1512D00 Performed at [facility] code = 4414) Laboratory Services [facility] Blood [address] [place] [address]Dvep Free: [phone] A No. [id number] [facility] P[facility] RBC (in units), 2 Units 2021-10-07 21:08:55 Test Item Value Reference Range Interpretation Comments Cross Match Result Compatible (test code = 4409) ISBT Blood Type Code (test code = 719447) Unit Blood Type (test A Pos code = 4410) Unit Number (test [id number] code = 4411) Blood Expiration Date & Time (test code = 225001) Status Information Issued (test code = 4412) Product Red Blood Cells Identification (test code = 4413) Product Code (test G9146G70 Performed at [facility] code = 4414) Laboratory Services [facility] Blood [address] [place] [id number] Free: [phone] A No. [id number] [facility] (87324)2021-10-07 12:06:32 Test Item Value Reference Range Interpretation Comments NA (test code = 139 mmol/L 135-145 [id number]) K (test code = 4.1 mmol/L 3.5-5.0 8380898132) CL (test code = 110 mmol/L 98-108 H [id number]) CO2 TOTAL (test code = 24 mmol/L 23-31 0814471149) AGAP (test code = 2-16 2688518667) BUN (test code = 6 mg/dL 7-23 L 4961965363) GLUCOSE (test code = 95 mg/dL 70-110 4414729455) CREATININE (test code = 0.48 mg/dL 0.50-1.04 L 4918467796) TOTAL BILI (test code = 0.3 mg/dL 0.1-1.9 9344895766) CALCIUM (test code = 8.2 mg/dL 8.6-10.6 L 8645602519) T PROTEIN (test code = 6.3 g/dL 6.3-8.2 8435447305) ALBUMIN (test code = 3.2 g/dL 3.5-5.0 L 4422819421) ALK PHOS (test code = 60 U/L 34-122 6754684379) ALTv (test code = 12 U/L 5-35 1742-6) AST(SGOT) (test code = 19 U/L 13-40 6655175318) eGFR (test code = mL/min/1.73m2 9716995724) MICKY (test code = MICKY) Association of [...] tests). Lab Interpretation Abnormal (test code = 73901-8) [facility]. METABOLIC PANEL (80697)2021-10-07 12:06:32 Test Item Value Reference Range Interpretation Comments NA (test code = 139 mmol/L 135-145 4054515958) K (test code = 4.1 mmol/L 3.5-5.0 4185258796) CL (test code = 110 mmol/L 98-108 H 8890275458) CO2 TOTAL (test code = 24 mmol/L 23-31 8254292224) AGAP (test code = 2-16 6955624359) BUN (test code = 6 mg/dL 7-23 L 0356188088) GLUCOSE (test code = 95 mg/dL 70-110 7096575530) CREATININE (test code = 0.48 mg/dL 0.50-1.04 L 6725121124) TOTAL BILI (test code = 0.3 mg/dL 0.1-1.6 8427852120) CALCIUM (test code = 8.2 mg/dL 8.6-10.6 L 5271188279) T PROTEIN (test code = 6.3 g/dL 6.3-8.2 0937367028) ALBUMIN (test code = 3.2 g/dL 3.5-5.0 L 3016903501) ALK PHOS (test code = 60 U/L 34-122 1999557014) ALTv (test code = 12 U/L 5-35 1742-6) AST(SGOT) (test code = 19 U/L 13-40 5041964187) eGFR (test code = mL/min/1.73m2 8268521940) MICKY (test code = MICKY) Association of [...] tests). Lab Interpretation Abnormal (test code = 89928-0) [facility]. METABOLIC PANEL (53256)2021-10-07 12:06:32 Test Item Value Reference Range Interpretation Comments NA (test code = 139 mmol/L 135-145 6824018190) K (test code = 4.1 mmol/L 3.5-5.0 5563559906) CL (test code = 110 mmol/L 98-108 H 8872474150) CO2 TOTAL (test code = 24 mmol/L 23-31 6037969665) AGAP (test code = 2-16 8519704109) BUN (test code = 6 mg/dL 7-23 L 9940634710) GLUCOSE (test code = 95 mg/dL 70-110 2603137153) CREATININE (test code = 0.48 mg/dL 0.50-1.04 L 7194240283) TOTAL BILI (test code = 0.3 mg/dL 0.1-1.8 8658527425) CALCIUM (test code = 8.2 mg/dL 8.6-10.6 L 0019964592) T PROTEIN (test code = 6.3 g/dL 6.3-8.2 4550197382) ALBUMIN (test code = 3.2 g/dL 3.5-5.0 L 1420315875) ALK PHOS (test code = 60 U/L 34-122 0222100656) ALTv (test code = 12 U/L 5-35 1742-6) AST(SGOT) (test code = 19 U/L 13-40 4363137677) eGFR (test code = mL/min/1.73m2 4873735666) MICKY (test code = MICKY) Association of [...] tests). Lab Interpretation Abnormal (test code = 69231-7) [facility] / [id number] 00:45:45 Test Item Value Reference Range Interpretation Comments PROTIME PATIENT (test See_Comment H [Auto mated message] code = 5964-2) The system [employer] generated this result transmitted ref erence range: 10.1 - 1 2.6 Seconds. The reference range was not used to int erpret this result as normal/abnormal . INR (test code = 6301-6) Nor mal INR <1.1; Warfarin Therap eutic range 2.0 to 3. 0 or 2.5 to 3.5, dep ending upon the indica tions. Lab Interpretation (test Abnormal code = 52521-0) [facility] THRM[facility] [id number] 00:45:45 Test Item Value Reference Range Interpretation Comments APTT Patient (test code See_Comment L [Au tomated message] = 3173-2) The system [employer] generated this result transmitted ref erence range: 26 - 36 Seconds. The reference range was not used to int erpret this result as normal/abnormal . Lab Interpretation (test Abnormal code = 10353-8) [facility]IB[facility]IN[facility]EN2022-06-23 00:45:45 Test Item Value Reference Range Interpretation Comments Fibrinogen (test code = 7594605731) 306 mg/dL 167-453 Lab Interpretation (test code = Normal 59048-4) [facility] / [id number] 00:45:45 Test Item Value Reference Range Interpretation Comments PROTIME PATIENT (test See_Comment H [Auto mated message] code = 5964-2) The system [employer] generated this result transmitted ref erence range: 10.1 - 1 2.6 Seconds. The reference range was not used to int erpret this result as normal/abnormal . INR (test code = 6301-6) Nor mal INR <1.1; Warfarin Therap eutic range 2.0 to 3. 0 or 2.5 to 3.5, dep ending upon the indica tions. Lab Interpretation (test Abnormal code = 32258-7) [facility] TH[facility] [id number] 00:45:45 Test Item Value Reference Range Interpretation Comments APTT Patient (test code See_Comment L [Au tomated message] = 3173-2) The system [employer] generated this result transmitted ref erence range: 26 - 36 Seconds. The reference range was not used to int erpret this result as normal/abnormal . Lab Interpretation (test Abnormal code = 31231-8) [facility]2022-06-23 00:45:45 Test Item Value Reference Range Interpretation Comments Fibrinogen (test code = 2682378002) 306 mg/dL 167-453 Lab Interpretation (test code = Normal 48584-2) [facility] / [id number] 00:45:45 Test Item Value Reference Range Interpretation Comments PROTIME PATIENT (test See_Comment H [Auto mated message] code = 5964-2) The system [employer] generated this result transmitted ref erence range: 10.1 - 1 2.6 Seconds. The reference range was not used to int erpret this result as normal/abnormal . INR (test code = 6301-6) Nor mal INR <1.1; Warfarin Therap eutic range 2.0 to 3. 0 or 2.5 to 3.5, dep ending upon the indica tions. Lab Interpretation (test Abnormal code = 10094-5) [facility] [id number] 00:45:45 Test Item Value Reference Range Interpretation Comments APTT Patient (test code See_Comment L [Au tomated message] = 3173-2) The system whic h generated this result transmitted ref erence range: 26 - 36 Seconds. The reference range was not used to int erpret this result as normal/abnormal . Lab Interpretation (test Abnormal code = 83372-7) [facility]2022-06-23 00:45:45 Test Item Value Reference Range Interpretation Comments Fibrinogen (test code = 1731770682) 306 mg/dL 167-453 Lab Interpretation (test code = Normal 03998-2) [facility] WITH [id number] 00:39:06 Test Item Value Reference Range Interpretation [...] (test code = 62.5 fL 39.0-49.9 H 05216-0) RDW-CV (test code = 19.2 % 12.0-15.5 H 788-0) PLT (test code = See_Comment L [Automated 777-3) message] The sy stem which generated this result transmitted reference range : 166 - 358 10*3/ ?L. The reference r susan was not used to interpret this result as normal/abnormal . MPV (test code = 10.4 fL 9.5-12.9 21107-9) NRBC/100 WBC (test See_Comment [Automat ed code = 4318846907) message] The system which generated this result transmitted reference range : 0.0 - 10.0 /100 WBCs. The refer ence range was not u sed to interpret th is result as normal/abnormal . NRBC x10^3 (test code <0.01 See_Comment [Auto mated = 9686321681) message] The s ystem which generated this result transmitted reference range : 10*3/?L. The reference range was not used to interpret this result as normal/abnormal . GRAN MAT (NEUT) % 64.9 % (test code = 770-8) IMM GRAN % (test code 0.40 % = 1868940924) LYMPH % (test code = 24.5 % 736-9) MONO % (test code = 6.8 % 5905-5) EOS % (test code = 3.0 % 713-8) BASO % (test code = 0.4 % 706-2) GRAN MAT x10^3(ANC) 3.23 10*3/uL 1.88-7.09 (test code = 0890710210) IMM GRAN x10^3 (test <0.03 0.00-0.06 code = 2370531558) LYMPH x10^3 (test code 1.22 10*3/uL 1.32-3.29 L = 731-0) MONO x10^3 (test code 0.34 10*3/uL 0.33-0.92 = 742-7) EOS x10^3 (test code = 0.15 10*3/uL 0.03-0.39 711-2) BASO x10^3 (test code <0.03 0.01-0.07 = 704-7) Lab Interpretation Abnormal (test code = 64775-3) [facility] WITH [id number] 00:39:06 Test Item Value Reference Range Interpretation [...] (test code = 62.5 fL 39.0-49.9 H 48307-6) RDW-CV (test code = 19.2 % 12.0-15.5 H 788-0) PLT (test code = See_Comment L [Automated 777-3) message] The sy stem which generated this result transmitted reference range : 166 - 358 10*3/ ?L. The reference r susan was not used to interpret this result as normal/abnormal . MPV (test code = 10.4 fL 9.5-12.9 92438-6) NRBC/100 WBC (test See_Comment [Automat ed code = 4457106537) message] The system which generated this result transmitted reference range : 0.0 - 10.0 /100 WBCs. The refer ence range was not u sed to interpret th is result as normal/abnormal . NRBC x10^3 (test code <0.01 See_Comment [Auto mated = 7976625901) message] The s ystem which generated this result transmitted reference range : 10*3/?L. The reference range was not used to interpret this result as normal/abnormal . GRAN MAT (NEUT) % 64.9 % (test code = 770-8) IMM GRAN % (test code 0.40 % = 2071257612) LYMPH % (test code = 24.5 % 736-9) MONO % (test code = 6.8 % 5905-5) EOS % (test code = 3.0 % 713-8) BASO % (test code = 0.4 % 706-2) GRAN MAT x10^3(ANC) 3.23 10*3/uL 1.88-7.09 (test code = 2917976809) IMM GRAN x10^3 (test <0.03 0.00-0.06 code = 0121222532) LYMPH x10^3 (test code 1.22 10*3/uL 1.32-3.29 L = 731-0) MONO x10^3 (test code 0.34 10*3/uL 0.33-0.92 = 742-7) EOS x10^3 (test code = 0.15 10*3/uL 0.03-0.39 711-2) BASO x10^3 (test code <0.03 0.01-0.07 = 704-7) Lab Interpretation Abnormal (test code = 93949-1) [facility] WITH [id number] 00:39:06 Test Item Value Reference Range Interpretation Comments WBC (test code = See_Comment [Automated 2490-2) message] The sy stem which generated this [...] (test code = 62.5 fL 39.0-49.9 H 60435-5) RDW-CV (test code = 19.2 % 12.0-15.5 H 788-0) PLT (test code = See_Comment L [Automated 777-3) message] The sy stem which generated this result transmitted reference range : 166 - 358 10*3/ ?L. The reference r susan was not used to interpret this result as normal/abnormal . MPV (test code = 10.4 fL 9.5-12.9 73451-0) NRBC/100 WBC (test See_Comment [Automat ed code = 5196322370) message] The system which generated this result transmitted reference range : 0.0 - 10.0 /100 WBCs. The refer ence range was not u sed to interpret th is result as normal/abnormal . NRBC x10^3 (test code <0.01 See_Comment [Auto mated = 0376867136) message] The s ystem which generated this result transmitted reference range : 10*3/?L. The reference range was not used to interpret this result as normal/abnormal . GRAN MAT (NEUT) % 64.9 % (test code = 770-8) IMM GRAN % (test code 0.40 % = 8909881460) LYMPH % (test code = 24.5 % 736-9) MONO % (test code = 6.8 % 5905-5) EOS % (test code = 3.0 % 713-8) BASO % (test code = 0.4 % 706-2) GRAN MAT x10^3(ANC) 3.23 10*3/uL 1.88-7.09 (test code = 5297837164) IMM GRAN x10^3 (test <0.03 0.00-0.06 code = 2910700193) LYMPH x10^3 (test code 1.22 10*3/uL 1.32-3.29 L = 731-0) MONO x10^3 (test code 0.34 10*3/uL 0.33-0.92 = 742-7) EOS x10^3 (test code = 0.15 10*3/uL 0.03-0.39 711-2) BASO x10^3 (test code <0.03 0.01-0.07 = 704-7) Lab Interpretation Abnormal (test code = 48243-7) [facility] - ON[facility] [id number] 21:53:57 Test Item Value Reference Range Interpretation Comments ABO & RH (test code A POSITIVE Performe d at [facility] = 20) Laboratory [facility] [address] [place] [address]Bhvw Free: [phone] A No. [id number] IAT (test code = Negative Performed a t [facility] 1185) Laboratory [facility] [address] [place] [address]Ddzv Free: [phone] A No. [id number] [facility] - This is a pre-surgical type and screen. ONCE [id number] 21:53:57 Test Item Value Reference Range Interpretation Comments ABO & RH (test code A POSITIVE Performe d at [facility] = 20) Laboratory [facility] [address] [place] [address] s [address]Rqgv Free: [phone] A No. [id number] IAT (test code = Negative Performed a t [facility] 1185) Laboratory [facility] [address] [place] [address] s [address]Pmug Free: [phone] A No. [id number] [facility] - ONCE [id number] 21:53:57 Test Item Value Reference Range Interpretation Comments ABO & RH (test code A POSITIVE Performe d at [facility] = 20) Laboratory [facility] [address] [place] [address] s 437[address]Pogz Free: [phone] A No. [id number] IAT (test code = Negative Performed a t [facility] 1185) Laboratory [facility] [address] [place] [address] s 275[address]Rgem Free: [phone] A No. [id number] [facility] - This is a pre-surgical type and screen. ONCE [id number] 21:53:57 Test Item Value Reference Range Interpretation Comments ABO & RH (test code A POSITIVE Performe d at [facility] = 20) Laboratory [facility] [address] [place] [address] s [address]Jkoo Free: [phone] A No. [id number] IAT (test code = Negative Performed a t [facility] 1185) Laboratory [facility] [address] s [address]Cdge Free: [phone] A No. [id number] [facility] - ONCE [id number] 21:53:57 Test Item Value Reference Range Interpretation Comments ABO & RH (test code A POSITIVE Performe d at [facility] = 20) Laboratory [facility] [address] [place] [address] s [address]Arre Free: [phone] A No. [id number] IAT (test code = Negative Performed a t [facility] 1185) Laboratory [facility] [address] s [address]Dhcu Free: [phone] A No. [id number] [facility] - This is a pre-surgical type and screen. ONCE [id number] 21:53:57 Test Item Value Reference Range Interpretation Comments ABO & RH (test code A POSITIVE Performe d at [facility] = 20) Laboratory [facility] [address] [place] [address] s [address]Djlb Free: [phone] A No. [id number] IAT (test code = Negative Performed a t [facility] 1185) Laboratory [facility] [place] [address] s [address]Smdt Free: [phone] A No. [id number] [facility] [id number] 20:12:00 Test Item Value Reference Range Interpretation Comments POCT PREG (test code = 1605) Negative On board controls acceptable with C Yes Line (test code = 3574) POCT PREG LOT # (test code = 3575) POCT PREG TEST DATE (test code = 3576) [facility] [id number] 20:12:00 Test Item Value Reference Range Interpretation Comments POCT PREG (test code = 1605) Negative On board controls acceptable with C Yes Line (test code = 3574) POCT PREG LOT # (test code = 3575) POCT PREG TEST DATE (test code = 3576) [facility] [id number] 20:12:00 Test Item Value Reference Range Interpretation Comments POCT PREG (test code = 1605) Negative On board controls acceptable with C Yes Line (test code = 3574) POCT PREG LOT # (test code = 3575) POCT PREG TEST DATE (test code = 3576) [facility] W/AUTO [id number] 08:31:00 Test Item Value Reference Range Interpretation [...] REQUIRED (test code = PLTMR) CBC W/AUTO [id number] 13:59:00 Test Item Value Reference Range Interpretation [...] STEVE.RE AD BACK & CONFIRME D? Y.BY [id number] 05/04/21 1356 IMMATURE PLATELET 6.0 % 0.0-10.8 [...] REQUIRED (test code = PLTMR) CBC W/AUTO [id number] 00:52:00 Test Item Value Reference Range Interpretation Comments WHITE BLOOD CELL (test 6.5 K/mm3 6.5-12.3 N code = WBC) RED BLOOD CELL (test 2.45 M/mm3 3.51-4.69 L code = RBC) HEMOGLOBIN (test code = 6.4 g/dL 10.1-13.8 LL RESU LTS CALLED TO HGB) CLIFFORD VILLAGOMEZ AD BACK & CONFIRME D? YBY [id number] 05/04/21 0025 HEMATOCRIT (test code = 21.5 [...] REQUIRED (test code = PLTMR) COMPREHENSIVE METABOLIC [id number] 00:38:00 Test Item Value Reference Range Interpretation [...] units/L 46-116 N code = ALKP) PROTHROMBIN [id number] 00:35:00 Test Item Value Reference Range Interpretation Comments PROTHROMBIN TIME PATIENT (test code 13.6 secs 10.1-12.3 H = PTP) THROMBOPLASTIN TIME [id number] 00:35:00 Test Item Value Reference Range Interpretation Comments THROMBOPLASTIN TIME PARTIAL (test 30.6 secs 22-38 N code = PTT) - DUP AB/PEL/SC/[id number] 00:00:00 [facility] 1985 Sex: F Patient Name: SEKOU CAMPBELL Unit No: [id number] EXAMS: CPT CODE: [id number] DUP AB/PEL/SC/LTD 54434 PROCEDURE INFORMATION: Exam: US Pelvis Complete (Transabdominal), [...] space: Hemoperitoneum. Urinary bladder: Visualized bladder is unremarkable.Vasculature: There is normal flow to both ovaries. No evidence for ovarian torsion is present. Otherfindings: 3.1 cm lesion within the right hepatic lobe is incidentally noted. IMPRESSION: 1. Hemoperitoneum in pelvis, right greater than left. 2. Thick-walled right ovarian cyst, possibly hemorrhagic cyst or recently ruptured follicle. 3. No ovarian torsion bilaterally. 4. 3.1 cm lesion within the liver, incompletely evaluated. 5. Unremarkable uterus. at 0121 Reported and signed by: Reza Alexandre MD [facility] NAME: SEKOU CAMPBELL Radiology Department PHYS: KHAHE. Chelo Ramírez MD [address] : 1985 AGE: 35 SEX: F [place], [place] [address] LOC: JOSSUE PHONE #: [phone] EXAM DATE: 05/04/2021 STATUS: REG ER FAX #: [phone] RAD NO: Page 1 Signed Report (CONTINUED) Patient Name: SEKOU CAMPBELL Unit No: [id number] EXAMS: CPT CODE: [id number] DUP AB/PEL/SC/LTD 18747 (Continued) CC: Chelo Ramírez MD Technologist: Griselda Streeter RDMS Probe: Trnscrbd D/ (0121) GCD.CPS Orig Print D/T: S: 05/04/2021 (0124) [facility] NAME: SEKOU CAMPBELL Radiology Department PHYS: Chelo Ramírez MD [address] : 1985 AGE: 35SEX: F [place], [place] [address] LOC: F.ERS PHONE #: [phone] EXAM DATE: 05/04/2021 STATUS: REG ER FAX #: [phone] RAD NO: Page 2 Signed Report Patient Name: SEKOU CAMPBELL Unit No: [id number] EXAMS: CPT CODE: [id number] DUP AB/PEL/SC/LTD 06312 (Continued) [facility] [place] [facility] NAME: SEKOU CAMPBELL Radiology Department PHYS: LASHELLKIMBERLEEPercy Chelo Ramírez MD [address] : 1985 AGE: 35 SEX: F [place], [place] [address] LOC: F.ERS PHONE#: [phone] EXAM DATE: 05/04/2021 STATUS: REG ER FAX #: [phone] RAD NO: Page 3 Signed Report- US PELVIS [id number] 00:00:00 [facility] 1985 Sex: F Patient Name: SEKOU CAMPBELL Unit No: [id number] EXAMS: CPT CODE: [id number] US PELVIS COMPLETE 19716 PROCEDURE INFORMATION: Exam: US Pelvis Complete (Transabdominal), [...] space: Hemoperitoneum. Urinary bladder: Visualized bladder is unremarkable.Vasculature: There is normal flow to both ovaries. No evidence for ovarian torsion is present. Otherfindings: 3.1 cm lesion within the right hepatic lobe is incidentally noted. IMPRESSION: 1. Hemoperitoneum in pelvis, right greater than left. 2. Thick-walled right ovarian cyst, possibly hemorrhagic cyst or recently ruptured follicle. 3. No ovarian torsion bilaterally. 4. 3.1 cm lesion within the liver, incompletely evaluated. 5. Unremarkable uterus. at 0121 Reported and signed by: Reza Alexandre MD [facility] [place] [facility] NAME: SEKOU CAMPBELL Radiology Department PHYS: Chelo Ramírez MD [address] : 1985 AGE: 35 SEX: F [place] [address] LOC: F.ERS PHONE #: [phone] EXAM DATE: 05/04/2021 STATUS: REG ER FAX #: [phone] RAD NO: Page 1 Signed Report (CONTINUED) Patient Name: SEKOU CAMPBELL Unit No: [id number] EXAMS: CPT CODE: [id number] US PELVIS COMPLETE 92316 (Continued) CC: Chelo Ramírez MD Technologist: Griselda Streeter RDMS Probe: Trnscrbd D/ (0121) GCD.CPS Orig Print D/T: S: 05/04/2021 (0121) [facility] [place] [facility] NAME: SEKOU CAMPBELL Radiology Department PHYS: LASHELLKIMBERLEEMichael Chelo Ramírez MD [address] : 1985 AGE: 35 SEX: F [place] [address] LOC: Maya.ERS PHONE #: [phone] EXAM DATE: 05/04/2021 STATUS: REG ER FAX #: [phone] RAD NO: Page 2 Signed Report Patient Name: SEKOU CAMPBELL Unit No: [id number] EXAMS: CPT CODE: [id number] US PELVIS COMPLETE 29248 (Continued) [facility] [place] [facility] NAME: SEKOU CAMPBELL Radiology Department PHYS: LASHELLKIMBERLEEMichael Chelo Ramírez MD [address] : 1985 AGE: 35 SEX: F [place] [address] LOC: F.ERS PHONE #: [phone] EXAM DATE: 05/04/2021 STATUS: REG ER FAX #: [phone] RAD NO: Page 3 Signed Report- US TRANSVAGINAL W/[id number] 00:00:00 [facility] : 1985 Sex: F Patient Name: SEKOU CAMPBELL Unit No: [id number] EXAMS: CPT CODE: [id number] US TRANSVAGINAL W/PELVIS 33642 PROCEDURE INFORMATION: Exam: US Pelvis Complete (Transabdominal), Pelvis (Transvaginal), and US Duplex Artery or Vein (Ovaries) Limited Exam date and time: 05/04/2021 12:15 AM Age: 35years old Clinical indication: Abdominal or pelvic symptoms: H/o ruptured ov cyst abd pain; Prior surgery; Surgery type: C/s TECHNIQUE: Imaging protocol: Real-time transabdominal and transvaginal pelvic ultrasound (complete) with image documentation. Transvaginal imaging was used for better evaluationof the endometrium, adnexa, and/or cervix. Real-time duplex [...] cm. Endometrial stripe measures 6 mm. No [place] rine fibroid is present. Right ovary/adnexa: The right ovary measures 5.2 x 3.6 x 3.5 cm on endovaginal exam. Thick-walled cyst within the right ovary measures 2.5 x 3.4 x 2.7 cm. Complex free fluid inthe right adnexa measures 10.0 cm. Left ovary/adnexa: Left ovary measures 2.8 x 2.0 x 2.3 cm on endovaginal exam. There is dilatation of the left fallopian tube. Complex free fluid in the left adnexa measures 4.0 cm. Intraperitoneal space: Hemoperitoneum. Urinary bladder: Visualized bladder is unremarkable. Vasculature: There is normal flow to both ovaries. No evidence for ovarian torsion is present.Other findings: 3.1 cm lesion within the right hepatic lobe is incidentally noted. IMPRESSION: 1. Hem operitoneum in pelvis, right greater than left. 2. Thick-walled right ovarian cyst, possibly hemorrhagic cyst or recently ruptured follicle. 3. No ovarian torsion bilaterally. 4. 3.1 cm lesion within the liver, incompletely evaluated. 5. Unremarkable uterus. at 0121 Reported and signed by: Reza Alexandre MD [facility] NAME: SEKOU CAMPBELL SANTIAGO Radiology Department PHYS: Chelo Ramírez MD [address] : 1985 AGE: 35 SEX: F [place] [address] LOC: JOSSUE PHONE #: [phone] EXAM DATE: 05/04/2021 STATUS: REG ER FAX #: [phone] RAD NO: Page 1 Signed Report (CONTINUED) Patient Name: SEKOU CAMPBELL Unit No: [id number] EXAMS: CPT CODE: [id number] US TRANSVAGINAL W/PELVIS 06028 (Continued) CC: Chelo Ramírez MD Technologist: Griselda Streeter RDMS Probe: [id number] Trnscrbd D/ (012) GCD.CPS Orig Print D/T: S: 05/04/2021 (012) [facility] NAME: ADRIANSEKOU HENDERSON Radiology Department PHYS: Chelo Ramírez MD [address] : 1985 AGE: 35 SEX: F [place], [place] [address] LOC: LiatERS PHONE #: [phone] EXAM DATE: 05/04/2021 STATUS: REG ER FAX #: [phone] RAD NO: Page 2 Signed Report PatientName: SEKOU CAMPBELL Unit No: [id number] EXAMS: CPT CODE: [id number] US TRANSVAGINAL W/LEBCJR24852 (Continued) [facility] NAME: SEKOU CAMPBELL Radiology Department PHYS: DEMIAN.Milka Chelo Ramírez MD [address] : 1985 AGE: 35 SEX: F [place], [place] [address] LOC: LiatERS PHONE #: [phone] EXAM DATE: 05/04/2021 STATUS: REG ER FAX #: [phone] RAD NO: Page 3 Signed Report- DUP VEIN [id number] 08:04:00 [facility] : 1985 Sex: F Patient Name: SEKOU CAMPBELL Unit No: [id number] EXAMS: CPT CODE: [id number] DUP VEIN SAMANTHA 88574 BILATERAL LOWER EXTREMITY DUPLEX VENOUS DOPPLER ULTRASOUND, 05/04/2020 COMPARISON: None CLINICAL HISTORY: LEG PAIN FINDINGS: Examination is limited due to patient's restlessness leg syndrome andback pain. Insofar as visualized, there is normal deep venous compressibility and Doppler flow in the veins to the level of the knees. Assessment of the deep veins below the level of the knees was verylimited. IMPRESSION: No sonographic evaluation of deep venous thrombosis is seen in the thighs. Please see above comments. at 0804 Reported and signed by: Ramiro Lizama MD CC: Magdalena Ferro Technologist: LILLI MCGOWAN RDMS, RVT Probe: Trnscrbd D/ (0804) [id number] Orig Print D/T: S: 05/04/2020 (0807) [facility] NAME: SEKOU CAMPBELL Radiology Department PHYS: Magdalena Borrego MD [address] : 1985 AGE: 34 SEX: F [place] [address] LOC: ROMAIN A PHONE #: [phone] EXAM DATE: 05/04/2020 STATUS: ADM IN FAX #: [phone] RAD NO: Page 1 Signed Report Patient Name: SEKOU CAMPBELL Unit No: [id number] EXAMS: CPT CODE: [id number] DUP VEIN SAMANTHA [id number] (Continued) [facility] NAME: SEKOU CAMPBELLWHEATLEY Radiology Department PHYS: Magdalena Borrego MD [address] : 1985 AGE: 34 SEX: F [place] [address] LOC: TANGELA4 A PHONE #: [phone] EXAM DATE: 05/04/2020 STATUS: ADM IN FAX #: [phone] RAD NO:Page 2 Signed ReportCBC W/AUTO [id number] 04:57:00 Test Item Value Reference Range Interpretation [...] PLT) READ JED K & CONFIRMED? Y.BY FAdrianLABAdrianTM [id number] verified by rep eat analysis IMMATURE PLATELET 8.4 % 0.0-10.8 N FRACTION (test code = IPF) MEAN PLATELET VOLUME 12.9 fl 9.1-12.7 H (test code = MPV) MANUAL DIFF REQUIRED YES (test code = MDIFF) RBC MORPHOLOGY REQUIRED NORMAL NORMAL (test code = RBCM) PLATELET MORPHOLOGY ABNORMAL NORMAL REQUIRED (test code = PLTMR) WBC [id number] 04:57:00 Test Item Value Reference Range Interpretation [...] NORMAL A code = PLTMORPH) CBC W/AUTO [id number] 04:56:00 Test Item Value Reference Range Interpretation [...] PLT) ROSARIO ADKINS K & CONFIRMED? Y.BY F.LAB. 0456Results verified by rep eat analysis IMMATURE PLATELET 8.4 % 0.0-10.8 N FRACTION (test code = IPF) MEAN PLATELET VOLUME 12.9 fl 9.1-12.7 H (test code = MPV) MANUAL DIFF REQUIRED YES (test code = MDIFF) RBC MORPHOLOGY REQUIRED NORMAL NORMAL (test code = RBCM) PLATELET MORPHOLOGY ABNORMAL NORMAL REQUIRED (test code = PLTMR) WBC [id number] 04:56:00 Test Item Value Reference Range Interpretation Comments SEGMENTED NEUTROPHILS (test code = SEG) % 56.5-79.4 LYMPHOCYTE (test code = LYMPH) % 20-40 CBC W/AUTO [id number] 04:56:00 Test Item Value Reference Range Interpretation [...] NORMAL REQUIRED (test code = PLTMR) WBC [id number] 04:56:00 Test Item Value Reference Range Interpretation Comments SEGMENTED NEUTROPHILS (test code = SEG) % 56.5-79.4 LYMPHOCYTE (test code = LYMPH) % 20-40 COMPREHENSIVE METABOLIC [id number] 04:39:00 Test Item Value Reference Range Interpretation [...] 46-116 N code = ALKP) CBC W/AUTO [id number] 19:13:00 Test Item Value Reference Range Interpretation Comments WHITE BLOOD CELL 5.9 K/mm3 6.6-12.1 L (test code = WBC) RED BLOOD CELL (test 2.60 M/mm3 3.45-5.01 L code = RBC) HEMOGLOBIN (test 6.9 g/dL 10.7-13.9 L RESULTS FERMIN IFIED BY code = HGB) REPEAT ANALYSIS RESULTS CALLED TO H.RAIN ET.READ BACK & CONFIRME D? Y.[place] F.[place]. HEMATOCRIT (test 22.1 [...] PLT) SUREKHA.READ BA CK & CONFIRMED? Y.BY F.LAB[place] [place] IMMATURE PLATELET 6.4 [...] REQUIRED (test code PRESENT = PLTMR) LACTIC [id number] 19:05:00 Test Item Value Reference Range Interpretation Comments LACTIC ACID (test 4.5 MMOL/L 0.5-2.2 HH RESULTS CA LLED TO code = LACT) READ BACK & CONFIRMED? YES. BY GlenAS04 04/17. COMPREHENSIVE METABOLIC [id number] 19:01:00 Test Item Value Reference Range Interpretation [...] 60 units/L 46-116 code = ALKP) PROTHROMBIN [id number] 19:01:00 Test Item Value Reference Range Interpretation Comments PROTHROMBIN TIME PATIENT (test code 13.3 secs 10.4-12.4 H = PTP) THROMBOPLASTIN TIME [id number] 19:01:00 Test Item Value Reference Range Interpretation Comments THROMBOPLASTIN TIME PARTIAL (test 20.6 secs 22-38 L code = PTT) [id number] 19:01:00 Test Item Value Reference Range Interpretation Comments FIBRINOGEN (test code = FIB) 141 mg/dL 309-518 L UA RFLX MICR CULT IF [id number] 12:47:00 Test Item Value Reference Range Interpretation [...] RiskForSepsis-no oth srcSpecimen Description: CLEAN CATCHUR HCG [id number] 12:47:00 Test Item Value Reference Range Interpretation [...] Description: CLEAN CATCHUA RFLX MICR CULT IF [id number] 12:36:00 Test Item Value Reference Range Interpretation [...] RiskForSepsis-no oth srcSpecimen Description: CLEAN CATCHUR HCG [id number] 12:36:00 Test Item Value Reference Range Interpretation [...] culture: RiskForSepsis-no oth srcSpecimen Description: CLEAN CATCHPROTHROMBIN [id number] 10:14:00 Test Item Value Reference Range Interpretation Comments PROTHROMBIN TIME PATIENT (test code 13.3 secs 10.4-12.4 H = PTP) THROMBOPLASTIN TIME [id number] 10:14:00 Test Item Value Reference Range Interpretation Comments THROMBOPLASTIN TIME PARTIAL (test 19.4 secs 22-38 L code = PTT) [id number] 10:14:00 Test Item Value Reference Range Interpretation Comments FIBRINOGEN (test code = FIB) 102 mg/dL 309-518 L COMPREHENSIVE METABOLIC [id number] 09:54:00 Test Item Value Reference Range Interpretation [...] units/L 46-116 N code = ALKP) HGB [id number] 06:49:00 Test Item Value Reference Range Interpretation [...]
[2022-01-11 14:07] LABS: Arterial Blood Carboxyhemoglob 1.5 % (0-1.5); Blood Gas Oxyhemoglobin 89.6 % (94-97); Blood O2 Saturation 92.1 % (92-98.5)
[2022-01-11] MEDS ORDERED: NA CHLORIDE 0.9% 1,000 ML ONE (14:18)
[2022-01-11 14:38] LABS: SARS-CoV-2 Antigen Rapid Res Negative (Negative)
[2022-01-11 14:40] LABS: Albumin 3.5 g/dL (3.4-5.0); Bilirubin Direct 0.1 mg/dL (0-0.2); Bilirubin Total 0.3 mg/dL (0.2-1.0); Potassium 3.4 mmol/L (3.5-5.1)
--- NOTE | 2022-01-11 14:46 | RAD REPORT ---
EXAM DESCRIPTION: CT - Head Brain Wo Cont - 01/11/2022 2:34 pm CLINICAL HISTORY: Alteration of consciousness/confusion COMPARISON: 2015 TECHNIQUE: Computed axial tomography of the head was obtained. IV contrast was not requested. All CT scans are performed using dose optimization technique as appropriate and may include automated exposure control or mA/KV adjustment according to patient size. FINDINGS: An intracranial bleed is not seen . The ventricles are normal in caliber. No significant hypodense areas within the brain visualized No extra-axial fluid collection is noted. Fluid within the sinuses/ mastoids is not seen. Chronic left maxillary sinusitis IMPRESSION: No acute intracranial abnormality is seen. If patient's symptoms persist MRI of the bra in would be recommended.
[2022-01-11 15:10] LABS: Absolute Lymphocytes (CBC) 1.1 K/uL (0.7-4.9); Hematocrit 27.1 % (36.0-45.0); Lymphocytes % 34.1 % (15.3-44.8); MCV 83.4 fL (80-100); MPV 8.2 fL (7.6-11.3); RBC Red Blood Cell Count 3.25 M/uL (3.86-4.86)
[2022-01-11 15:13] LABS: Protime INR 1.27
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
--- NOTE | 2022-01-11 15:47 | EDPHYS ---
Physician Documentation [facility] Name: Bri Boyd Age: 36 yrs Sex: Female : 1985 Arrival Date: 01/11/2022 Time: 13:52 Bed 2 Private MD: ED Physician Gm Strong HPI: 01/11 15:38 This 36 yrs old Female presents to ER via EMS with complaints of Altered santana Mental Status. 15:38 The patient presents with decreased responsiveness. Onset: The symptoms/episode santana began/occurred just prior to arrival. Possible causes: drug use, unk, low blood sugar, seizure. Associated signs and symptoms: The patient has no apparent associated signs or symptoms. Current symptoms: In the emergency department the patient's symptoms have improved, mildly. Patient's baseline: Neuro: alert and fully oriented. The patient has experienced similar episodes in the past, several times. Historical: - Allergies: 13:54 Aspirin; bp 13:54 IV IRON; bp 13:54 NSAIDS; bp - Home Meds: 13:54 gabapentin Oral [Active]; Morphine Oral [Active]; [place] Oral [Active]; bp - PMHx: 13:54 Anemia; Glanzmann Thrombasthenia; bp - PSHx: 13:54 section; bp - Immunization history:: Adult Immunizations unknown. - Social history:: Smoking status: Patient reports the use of cigarette tobacco products, unknown amount. ROS: 15:39 Constitutional: Negative for fever, chills, and weight loss, Eyes: Negative for injury, santana pain, redness, and discharge, ENT: Negative for injury, pain, and discharge, Neck: Negative for injury, pain, and swelling, Cardiovascular: Negative for chest pain, palpitations, and edema, Respiratory: Negative for shortness of breath, cough, wheezing, and pleuritic chest pain, Abdomen/GI: Negative for abdominal pain, nausea, vomiting, diarrhea, and constipation, Back: Negative for injury and pain, : Negative for injury, bleeding, discharge, and swelling, MS/Extremity: Negative for injury and deformity, Skin: Negative for injury, rash, and discoloration, Psych: Negative for depression, anxiety, suicide ideation, homicidal ideation, and hallucinations, Allergy/Immunology: Negative for hives, rash, and allergies, Endocrine: Negative for neck swelling, polydipsia, polyuria, polyphagia, and marked weight changes, Hematologic/Lymphatic: Negative for swollen nodes, abnormal bleeding, and unusual bruising. 15:39 Neuro: Positive for altered mental status, weakness. Exam: 15:39 Constitutional: This is a well developed, well nourished patient who is awake, alert, santana and in no acute distress. Head/Face: Normocephalic, atraumatic. Eyes: Pupils equal round and reactive to light, extra-ocular motions intact. Lids and lashes normal. Conjunctiva and sclera are non-icteric and not injected. Cornea within normal limits. Periorbital areas with no swelling, redness, or edema. ENT: Nares patent. No nasal discharge, no septal abnormalities noted. Tympanic membranes are normal and external auditory canals are clear. Oropharynx with no redness, swelling, or masses, exudates, or evidence of obstruction, uvula midline. Mucous membranes moist. Neck: Trachea midline, no thyromegaly or masses palpated, and no cervical lymphadenopathy. Supple, full range of motion without nuchal rigidity, or vertebral point tenderness. No Meningismus. Chest/axilla: Normal chest wall appearance and motion. Nontender with no deformity. No lesions are appreciated. Cardiovascular: Regular rate and rhythm with a normal S1 and S2. No gallops, murmurs, or rubs. Normal PMI, no JVD. No pulse deficits. Respiratory: Lungs have equal breath sounds bilaterally, clear to auscultation and percussion. No rales, rhonchi or wheezes noted. No increased work of breathing, no retractions or nasal flaring. Abdomen/GI: Soft, non-tender, with normal bowel sounds. No distension or tympany. No guarding or rebound. No evidence of tenderness throughout. Back: No spinal tenderness. No costovertebral tenderness. Full range of motion. Skin: Warm, dry with normal turgor. Normal color with no rashes, no lesions, and no evidence of cellulitis. MS/ Extremity: Pulses equal, no cyanosis. Neurovascular intact. Full, normal range of motion. Psych: Awake, alert, with orientation to person, place and time. Behavior, mood, and affect are within normal limits. 15:39 Neuro: Orientation: unable to test, Mentation: slow to respond, Memory: unable to test, Cranial nerves: unable to test, Cerebellar function: unable to test, Motor: moves all fours, Sensation: unable to test, Gait: is steady, seizure activity, is not displayed by the patient. 15:43 Cardiovascular: Exam negative for acute changes, arrhythmia, bradycardia, edema, santana gallop, JVD, murmur, pulse deficit, rub, tachycardia. 15:43 ECG was reviewed by the Attending Physician. Vital Signs: 14:08 BP 97 / 58; Pulse 70; Resp 15; Temp 97.5; Pulse Ox 100% ; bp 15:30 BP 96 / 55; Pulse 73; Resp 16; Pulse Ox 100% ; bp MDM: 13:54 Patient medically screened. santana 15:41 Differential Diagnosis altered mental status. Differential Diagnosis: CVA, electrolyte santana abnormality, alcohol intoxication, hypoglycemia, intracranial bleed, overdose, TIA. Data reviewed: vital signs, nurses notes, lab test result(s), EKG, radiologic studies, CT scan, plain films. Data interpreted: color television console monitor: rate is 70 beats/min, rhythm is regular, Pulse oximetry: on room air is 100 %. Test interpretation: by ED physician or midlevel provider: ECG, plain radiologic studies. Counseling: I had a detailed discussion with the patient and/or guardian regarding: the historical points, exam findings, and any diagnostic results supporting the discharge/admit diagnosis, lab results, radiology results, the need for outpatient follow up, for definitive care, a family practitioner, a psychiatrist. 01/11 13:55 Order name: Acetaminophen; Complete Time: 15: [facility] 01/11 13:55 Order name: Basic Metabolic Panel; Complete Time: 15: [facility] 01/11 13:55 Order name: CBC with Diff; Complete Time: 15:[address] [facility] 01/11 13:55 Order name: ETOH Level; Complete Time: 15:[address] [facility] 01/11 13:55 Order name: Hepatic Function; Complete Time: 15:[address] [facility] 01/11 13:55 Order name: PT-INR; Complete Time: 15:[address] [facility] 01/11 13:55 Order name: Ptt, Activated; Complete Time: 15:01/11 13:55 Order name: Salicylate; Complete Time: 15:[address] [facility] 01/11 13:55 Order name: EKG; Complete Time: 13:[address] [facility] 01/11 13:55 Order name: CT Head Brain wo Cont; Complete Time: 15:[address] [facility] 01/11 13:55 Order name: ABG [facility] 01/11 13:55 Order name: SARS RAPID; Complete Time: 15:[address] [facility] 01/11 13:55 Order name: EKG - Nurse/Tech; Complete Time: 14:[address] [facility] 01/11 13:55 Order name: IV Saline Lock; Complete Time: 14:[address] [facility] 01/11 13:55 Order name: Labs collected and sent; Complete Time: 14:[address] [facility] 01/11 13:55 Order name: Suicide Screening ([place]); Complete Time: 14:[address] [facility] 01/11 14:30 Order name: Labs - recollect needed: recollect blue lavender top; Complete Time: 14:55 bd EC:43 Rate is 74 beats/min. Rhythm is regular. QRS [place] is Normal. [place] interval is normal. QRS santana interval is normal. QT interval is normal. No Q waves. T waves are Normal. No ST changes noted. Clinical impression: Normal ECG and No evidence of ischemia. Interpreted by me. Reviewed by me. Administered Medications: 14:10 Drug: NS 0.9% 1000 ml Route: IV; Rate: 1 bolus; Site: left forearm; bp 15:46 Follow up: IV Status: Completed infusion; IV Intake: 1000ml bp Disposition Summary: 01/11/22 15:46 Eloped Disposition: after being seen by provider santana Reason: unknown santana Condition: Fair santana Diagnosis - Altered mental status, unspecified santana - Anemia, unspecified santana - Thrombocytopenia, unspecified santana - Neutropenia, unspecified santana - Hypokalemia santana Followup: santana - With: Private Physician - When: Upon discharge from the Emergency Department - Reason: Recheck today's complaints, Continuance of care, Re-evaluation by your physician Followup: santana - With: Zack Claudio MD - When: 2 - 3 days - Reason: Recheck today's complaints, Continuance of care, Re-evaluation by your physician Signatures: Dispatcher [employer] Rehana Anderson Corey, MD MD cha Peltier, Brian, RN RN bp
--- NOTE | 2022-01-12 13:08 | EKG ---
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
[2022-01-13 20:38] VITALS: TEMP 97.5; O2SAT 100
[2022-01-13 20:39] VITALS: BP 96/55
== END 2022-01-11 15:50 | disposition left against medical advice (07) ==
LOC: ER 13:48
DX: R41.82 Altered mental status, unspecified (principal); D64.9 Anemia, unspecified; D69.6 Thrombocytopenia, unspecified; D70.9 Neutropenia, unspecified; E87.6 Hypokalemia; Z72.0 Tobacco use; Z20.822 Contact with and (suspected) exposure to COVID-19
CPT/HCPCS: 36415; 70450; 80048; 80076; 80320; 80329; 82805; 85025; 85610; 85730; 87811; 93005; 96360; 96361; 99284; J7030

== ENCOUNTER 2022-01-31 18:02 | Emergency (ER) | payer OTHER, SELFPAY ==
--- OUTSIDE RECORDS SUMMARY | 2022-01-31 18:18 | XMS REPORT | Continuity of Care Document ---
:1985 Author Organization [facility] t Address [address] [place] [address] Care Team Providers Name Role Phone LOUIS BARNARD Primary Care Physician Unavailable FLORENCIO LR Attending Clinician Unavailable Jailene SANDRA, Florencio Greenwood Attending Clinician Casey Cummins Attending Clinician Unavailable Ruthy Hunter Attending Clinician NICOLE SHANKS Attending Clinician Unavailable Pgy3 Attending Clinician Unavailable Sandi Richard LVN Attending Clinician NGOC QUINTEROS Attending Clinician Unavailable Aldair SANDRA, Ngoc Monroe Attending Clinician Judi Merino MD Attending Clinician Johanny Martel RN Attending Clinician Unavailable Chanel Fabian MD Attending Clinician Doctor Unassigned, [place] Attending Clinician Unavailable Erma Newsome RN Attending Clinician Matias Cruz MD Attending Clinician MATIAS CRUZ Attending Clinician Unavailable RUTHY LOCO Attending Clinician Unavailable Nicole Chappell Attending Clinician Unavailable DEBRA LÓPEZ Attending Clinician Unavailable Bird Reis DO Attending Clinician Misael RINCON, Aracelis Attending Clinician Unavailable Samuel RINCON, Melinda Gillette Attending Clinician Unavailable Peggy SANDRA, Jesse [place] Attending Clinician Visit, [facility] Attending Clinician Unavailable [facility], Allie Anne Attending Clinician [phone] Roger BRICK PAVER, Louis Guadalupe Attending Clinician Won SANDRA, Gilson Wren Attending Clinician [phone] Rocío SANDRA, Alla Lion Attending Clinician Syd BRICK PAVER, Max Mayfield Attending Clinician Dl SANDRA, Ree Attending Clinician Ultrasound, [facility] Attending Clinician Unavailable Mila Ferguson Attending Clinician Risk, Bpj-Vavas-Gf/High Attending Clinician Unavailable Pool, [facility] Resident Attending Clinician Unavailable Teresa SANDRA, Inga Chowdary Attending Clinician Chacorta Clark MD Attending Clinician 2, [facility] Usg Room Attending Clinician Unavailable Aries SANDRA, Ruba Attending Clinician Faculty, [facility] Attending Clinician Unavailable Emy [facility], Marycruz Mac Attending Clinician Lorrie Olmos MD Attending Clinician Kyle Cordero Attending Clinician Calvin Patel Attending Clinician 5, [facility] Usg Room Attending Clinician Unavailable Chato SANDRA, Alison [place] Attending Clinician Modesto De La Rosa MD Attending Clinician Jose C SANDRA, Vidhi Attending Clinician FLORENCIO LR Admitting Clinician Unavailable Casey Cummins Admitting Clinician Unavailable NGOC QUINTEROS Admitting Clinician Unavailable Ngoc Quinteros MD Admitting Clinician MATIAS CRUZ Admitting Clinician Unavailable Matias Cruz MD Admitting Clinician Jailene SANDRA, Florencio Greenwood Admitting Clinician Nicole Chappell Admitting Clinician Unavailable Jesse Woods MD Admitting Clinician Ree Lizama MD Admitting Clinician Lorrie Olmos MD Admitting Clinician Payers Payer Name Policy Type Policy Number Effective Date Expiration Date Amisha navarro [facility] CASEBOOK [id number] 2021 2022 00:00:00 00:00:00 MEDICAID PENDING PENDING 2021 00:00:00 [facility] [id number] 2018 CHOICE MEDICAID 00:00:00 Problems Condition Condition Condition Status Onset Resolution Last Treating Co mments Source Name Details Category Date Date Treatment Clinician Date Acute Acute Disease Active Univers blood loss blood loss 6-22 it y of anemia anemia 00:00: [place] [facility] Menorrhagi Menorrhagi Disease Active U nivers a with a with 6-13 ity of irregular irregular 00:00: [facility] s cycle cycle [facility] Anemia Anemia Disease Active Univers 5-10 ity of 00:00: [place] [facility] Abnormal Abnormal Disease Active 2018-04 Unive rs TSH TSH 0-18 ity of 00:00: [place] [facility] Fatty Fatty Disease Active 2018-04 Univers liver liver 0-18 ity of 00:00: [place] [facility] Other Other Disease Active 2018-04 Univers fatigue fatigue 0-18 ity of 00:00: [address] Severe Severe Disease Active Univers pre-eclamp pre-eclamp 9-17 it y of richard, richard, 00:00: [place] 00 Me dical condition condition Bran ch or or complicati complicati on on Research Research Disease Active 2019 Overview: Un [place] study study 12-13 Formattin [...] anemia anemia 8-05 ity of 00:00: [place] 00 Medical Branch Obesity Obesity Disease Active Univers (BMI (BMI 7-08 ity of 30-39.9) 30-39.9) 00:00: [place] 00 Medical Branch Rubella Rubella Disease Active Univers [...] of section section 00:00: g of this [place] 00 note Medical might be Branch different [...] of [place] iron DA Active U UNKNOWN 2020- [facility] [place] PENICILL DRUG Active Unknown-Cmnt Un brayden IN INGREDI 2-19 ity of 00:00: [place] 00 Medical Branch Penicill Propensi Active Unknown - Uni vers in ty to See comments - ity of adverse 00:00: [place] reaction 00 [...] 2021-10-11 0 /d University of 00:00:00 00:00:00 [facility] Exposure to 2021-09-25 2021-10-05 Not sure [facility] SARS-CoV-2 (event) 00:00:00 09:00:00 [facility] Education 2021-08-24 2021-08-24 14 University of 00:00:00 00:00:00 [facility] Tobacco Comment 2018-05-29 2018-05-29 1 pack per week; Uni versity of 00:00:00 00:00:00 quit 2015 [facility] Tobacco use and 2018-05-29 2018-05-29 Smokeless Universit y of exposure 00:00:00 00:00:00 tobacco non-user [facility] dical Branch Cigarettes smoked 2018-05-29 2018-05-29 Univers ity of current (pack per 00:00:00 00:00:00 [facility] ) - Reported Branch Cigarette 2018-05-29 2018-05-29 University of pack-years 00:00:00 00:00:00 [facility] History of tobacco 2015-06-21 Cigarette Smoker University of use 00:00:00 [facility] [birth year] [place] [facility] Smoking Status Start Date Stop Date Source Ex-smoker 2018-05-29 00:00:00 2018-05-29 00:00:00 [place] [facility] Medications Ordered Filled Start Stop Current Ordering Indication Dosage Frequency Signature Comments Components Source Medication Medication Date Date Medication? Clinician (SIG) Name Name ferrous Yes 300mg 300 mg, Univer s sulfate 300 -29 Oral, ity of mg (60 mg 00:58: Q48H, [place] iron)/5 mL 00 First dose Med ical solution (after Branch 300 mg last modificati on) on Mon10/12/21 at 1999, Until Discontinu ed, Routine ferrous Yes 300mg 300 mg, Univer s sulfate 300 -29 Oral, ity of mg (60 mg 00:58: Q48H, [place] iron)/5 mL 00 First dose Med ical solution (after Branch 300 mg last modificati on) on Mon10/12/21 at 1999, Until Discontinu ed, Routine polyethylen Yes [id number] 17g Take 1 Univers e glycol 6-29 Packet by ity of 3350 17 00:00: mouth [place] gram powder 00 daily. Medica l Branch polyethylen Yes [id number] 17g Take 1 Univers e glycol 6-29 Packet by ity of 3350 17 00:00: mouth [place] gram powder 00 daily. Medica l Branch polyethylen Yes [id number] 17g Take 1 Univers e glycol 6-29 Packet by ity of 3350 17 00:00: mouth [place] gram powder 00 daily. Medica l Branch polyethylen Yes [id number] 17g Take 1 Univers e glycol 6-29 Packet by ity of 3350 17 00:00: mouth [place] gram powder 00 daily. Medica l Branch polyethylen Yes [id number] 17g Take 1 Univers e glycol 6-29 Packet by ity of 3350 17 00:00: mouth [place] gram powder 00 daily. Medica l Branch polyethylen Yes [id number] 17g Take 1 Univers e glycol 6-29 [...] A DAY NEEDED FOR 30 DAYS gabapentin 2021- No gabapentin Univers 100 mg 10-12 100 mg ity of capsule 12:07: 00:00 capsule [place] 49 :00 TAKE 1 Medical CAPSULE BY Branch MOUTH EVERY DAY AT BEDTIME FOR 30 DAYS acetaminoph 2021- No acetaminop Univers en-codeine 10-12 hen 300 ity o f 300-30 mg 12:07: 00:00 mg-codeine [place] tablet 49 :00 30 mg Medical tablet Branch TAKE 1 TABLET BY MOUTH 2-3 TIMES EVERY DAY NEEDED FOR PAIN. HYDROmorpho 2- No .3mg 0.3 mg, Un bray[place] ne 6-28 06-28 Slow IV ity of (DILAUDID) 00:36: 01:21 Push, [place] injection 44 :00 Q6HPRN, 1 Medic al 0.3 mg dose, Branch Starting on Mon10/11/21 at 1936, Until Mon10/11/21 at 2020, Routine, Pain (scale 7-10)
U se approved by (Faculty): [facility] gabapentin 2021-0 Yes [id number] 300mg Take 1 Univers 300 mg 6-28 [...] 20 doses. Indication s: acute pain methocarbam 0 Yes [id number] 500mg Take 1 Univers oL 500 mg 6-28 tablet by ity o f tablet 00:00: mouth 4 [place] 00 (four) Medical times Branch daily as needed for Pain (scale 4-6). phenazopyri 0 Yes [id number] 200mg Take 1 Univers dine 200 mg 6-28 tablet by ity of tablet 00:00: mouth 3 [place] 00 (three) Medical times Branch daily. sennosides- 2021-0 Yes [id number] 1{tbl} Take 1 Univers docusate 6-28 tablet by ity of sodium 00:00: mouth 2 [place] 8.6-50 mg 00 (two) Medical per tablet times Branch daily. simethicone 2021-0 Yes [id number] 160mg Take 2 Univers 80 mg 6-28 tablets by ity of chewable 00:00: mouth [place] tablet 00 after Medical meals and Branch at bedtime. gabapentin 2021-0 Yes [id number] 300mg Take 1 Univers 300 mg 6-28 [...] Indication s: acute pain methocarbam 2022-0 Yes [id number] 500mg Take 1 Univers oL 500 mg 6-28 tablet by ity o f tablet 00:00: mouth 4 [place] 00 (four) Medical times Branch daily as needed for Pain (scale 4-6). phenazopyri 2022-0 Yes [id number] 200mg Take 1 Univers dine 200 mg 6-28 tablet by ity of tablet 00:00: mouth 3 [place] 00 (three) Medical times Branch daily. sennosides- 2022-0 Yes [id number] 1{tbl} Take 1 Univers docusate 6-28 tablet by ity of sodium 00:00: mouth 2 [place] 8.6-50 mg 00 (two) Medical per tablet times Branch daily. simethicone 2-0 Yes [id number] 160mg Take 2 Univers 80 mg 6-28 tablets by ity of chewable 00:00: mouth [place] tablet 00 after Medical meals and Branch at bedtime. gabapentin 2-0 Yes [id number] 300mg Take 1 Univers 300 mg 6-28 capsule by ity of capsule 00:00: mouth 3 [place] 00 (three) Medical times Branch daily. HYDROcodone 2-0 Yes [id number] 1{tbl} Take 1 Un brayden -acetaminop 6-28 tablet by ity of hen 10-325 00:00: mouth [place] mg tablet 00 every 4 Medical (four) Branch hours as needed for Pain (scale 4-6) for up to 20 doses. Indication s: acute pain methocarbam 2022-0 Yes [id number] 500mg Take 1 Univers oL 500 mg 6-28 tablet by ity o f tablet 00:00: mouth 4 [place] 00 (four) Medical times Branch daily as needed for Pain (scale 4-6). phenazopyri 2022-0 Yes [id number] 200mg Take 1 Univers dine 200 mg 6-28 tablet by ity of tablet 00:00: mouth 3 [place] 00 (three) Medical times Branch daily. sennosides- 2022-0 Yes [id number] 1{tbl} Take 1 Univers docusate 6-28 tablet by ity of sodium 00:00: mouth 2 [place] 8.6-50 mg 00 (two) Medical per tablet times Branch daily. simethicone 2022-0 Yes [id number] 160mg Take 2 Univers 80 mg 6-28 tablets by ity of chewable 00:00: mouth [place] tablet 00 after Medical meals and Branch at bedtime. gabapentin 2021-0 Yes [id number] 300mg Take 1 Univers 300 mg 6-28 [...] Indication s: acute pain methocarbam 2021-0 Yes [id number] 500mg Take 1 Univers oL 500 mg 6-28 tablet by ity o f tablet 00:00: mouth 4 [place] 00 (four) Medical times Branch daily as needed for Pain (scale 4-6). phenazopyri 2021-0 Yes [id number] 200mg Take 1 Univers dine 200 mg 6-28 tablet by ity of tablet 00:00: mouth 3 [place] 00 (three) Medical times Branch daily. sennosides- 2021-0 Yes [id number] 1{tbl} Take 1 Univers docusate 6-28 tablet by ity of sodium 00:00: mouth 2 [place] 8.6-50 mg 00 (two) Medical per tablet times Branch daily. simethicone 202-0 Yes [id number] 160mg Take 2 Univers 80 mg 6-28 tablets by ity of chewable 00:00: mouth [place] tablet 00 after Medical meals and Branch at bedtime. gabapentin 2-0 Yes [id number] 300mg Take 1 Univers 300 mg 6-28 capsule by ity of capsule 00:00: mouth 3 [place] 00 (three) Medical times Branch daily. HYDROcodone 2-0 Yes [id number] 1{tbl} Take 1 Un bray[place] -acetaminop 6-28 tablet by ity of hen 10-325 00:00: mouth [place] mg tablet 00 every 4 Medical (four) Branch hours as needed for Pain (scale 4-6) for up to 20 doses. Indication s: acute pain methocarbam 2021-0 Yes [id number] 500mg Take 1 Univers oL 500 mg 6-28 tablet by ity o f tablet 00:00: mouth 4 [place] 00 (four) Medical times Branch daily as needed for Pain (scale 4-6). phenazopyri 2021-0 Yes [id number] 200mg Take 1 Univers dine 200 mg 6-28 tablet by ity of tablet 00:00: mouth 3 [place] 00 (three) Medical times Branch daily. sennosides- 2021-0 Yes [id number] 1{tbl} Take 1 Univers docusate 6-28 tablet by ity of sodium 00:00: mouth 2 [place] 8.6-50 mg 00 (two) Medical per tablet times Branch daily. simethicone 2021-0 Yes [id number] 160mg Take 2 Univers 80 mg 6-28 tablets by ity of chewable 00:00: mouth [place] tablet 00 after Medical meals and Branch at bedtime. gabapentin 2021-0 Yes [id number] 300mg Take 1 Univers 300 mg 6-28 [...] Indication s: acute pain methocarbam 2021-0 Yes [id number] 500mg Take 1 Univers oL 500 mg 6-28 tablet by ity o f tablet 00:00: mouth 4 [place] 00 (four) Medical times Branch daily as needed for Pain (scale 4-6). phenazopyri 2021-0 Yes [id number] 200mg Take 1 Univers dine 200 mg 6-28 tablet by ity of tablet 00:00: mouth 3 [place] 00 (three) Medical times Branch daily. sennosides- 2021-0 Yes [id number] 1{tbl} Take 1 Univers docusate 6-28 tablet by ity of sodium 00:00: mouth 2 [place] 8.6-50 mg 00 (two) Medical per tablet times Branch daily. simethicone 2021-0 Yes [id number] 160mg Take 2 Univers 80 mg 6-28 tablets by ity of chewable 00:00: mouth [place] tablet 00 after Medical meals and Branch at bedtime. phenazopyri 2021- No 200mg 200 mg, U nivers dine 10-11 Oral, TID, ity of (PYRIDIUM) 19:00: 18:59 9 doses, [place] tablet 200 00 :00 First dose Med ical mg on Mon Branch 10/11/21 at 1400, Last dose on Mon10/14/21 at 0800, Routine phenazopyri 2021- No 200mg 200 mg, U nivers dine 10-11 Oral, TID, ity of (PYRIDIUM) 19:00: 18:59 9 doses, [place] tablet 200 00 :00 First dose Med ical mg on Mon [place] 10/11/21 at 1400, Last dose on Mon10/14/21 at 0800, Routine simethicone Yes 160mg 160 mg, Un [place] (GAS RELIEF 10-11 Oral, ity of (SIMETHICON 14:15: PC[place]HS, [place] E)) 00 First dose Medical chewable on [facility] Branch tablet 160 10/11/21 at mg 0915, Until Discontinu ed, Routine simethicone 0 Yes 160mg 160 mg, Un [place] (GAS RELIEF 10-11 Oral, ity of (SIMETHICON 14:15: PC+HS, [place] E)) 00 First dose Medical chewable on [facility] Branch tablet 160 10/11/21 at mg 0915, Until Discontinu ed, Routine simethicone 2021- No 120mg 120 mg, U nivers (GAS RELIEF 10-11 Oral, ity of (SIMETHICON 14:00: 14:11 PC+HS, [place] as E)) 00 :54 First dose Medical chewable on [facility] Branch tablet 120 10/11/21 at mg 0900, Until Discontinu ed, Routine HYDROmorpho No .3mg 0.3 mg, Un brayden ne 10-11 Slow IV ity of (DILAUDID) 13:12: 17:58 Push, [place] injection 30 :00 Q6HPRN, 1 Medic al 0.3 mg dose, Branch Starting on Mon10/11/21 at 0812, Until Discontinu ed, Routine, Pain [...] Discontinu ed, Routine, Pain (scale 4-6) sennosides- 0 Yes 1{tbl} 1 tablet, Univers docusate 10-11 Oral, BID, ity o f sodium 13:00: First dose [place] (SENOKOT-S) 00 (after Medica l 8.6-50 mg last Branch per tablet modificati 1 tablet on) on Mon10/11/21 at 0800, Until Discontinu ed, Routine sennosides- 0 Yes 1{tbl} 1 tablet, Univers docusate -27 [...] QHSPRN, [place] 34 Starting Medical on [place] Branch 10/10/21 at 2202, Until Discontinu ed, Routine, Insomnia melatonin 0 Yes 3mg 3 mg, Univers (MELATIN) 10-11 Oral, ity of tablet 3 mg 03:02: [place] HEIN as 34 Starting Medical on [place] Branch 10/10/21 at 2202, Until Discontinu ed, Routine, Insomnia diphenhydrA 0 Yes 50mg 50 mg, Univ [facility] 10-10 Intravenou ity of (BENADRYL) 20:50: s, QHSPRN, [place] injection 29 Starting Medica l 50 mg on Sun Branch 10/10/21 at 1550, Until Discontinu ed, Routine, Insomnia diphenhydrA Yes 50mg 50 mg, Univ [facility] MINE 10-10 Intravenou ity of (BENADRYL) 20:50: s, QHSPRN, [place] injection 29 Starting Medica l 50 mg on [place] Branch 10/10/21 at 1550, Until Discontinu ed, Routine, Insomnia ibuprofen Yes ibuprofen Uni vers 800 mg 10-10 800 mg ity of tablet 17:07: tablet [place] 42 TAKE 1 Medical TABLET BY Branch MOUTH TWICE A DAY NEEDED HYDROcodone Yes hydrocodon Univers -acetaminop 10-10 e 10 ity of hen 10-325 17:07: mg-acetami [place] mg tablet 42 nophen 325 Medi frank mg tablet [place] TAKE 1 TABLET BY MOUTH FOUR TIMES A DAY NEEDED FOR 30 DAYS gabapentin Yes gabapentin U nivers 100 mg 10-10 100 mg ity of capsule 17:07: capsule [place] 42 TAKE 1 Medical CAPSULE BY Branch MOUTH EVERY DAY AT BEDTIME FOR 30 DAYS acetaminoph 0 Yes acetaminop Univers en-codeine 10-10 hen 300 [...] Medical mg last Branch modificati on) on [place] 10/10/21 at 1200, Until Discontinu ed, Routine HYDROmorpho 2021- No .2mg 0.2 mg, Un brayden ne 10-10 Slow IV ity of (DILAUDID) 15:55: 13:12 Push, [place] injection 26 :51 Q6HPRN, 5 Medic al 0.2 mg doses, Branch Starting on [place] 10/10/21 at 1055, Until 10/11/21 at 0812, Routine, Pain (scale 7-10)
U se approved by (Faculty): [facility] oxyCODONE 2021- No 5mg 5 mg, Univer s immediate 10-10 Oral, ity of release 15:54: 13:12 Q6HPRN, [place] tablet 5 mg 15 :12 Starting Medi frank on [place] Branch 10/10/21 at 1054, Until 10/11/21 at 0812, Routine, Pain (scale 4-6)
Fa culty member approving Restricted medication : NGOC QUINTEROS ALPRAZolam 2021- No .25mg 0.25 mg, U nivers (XANAX) 10-10 Oral, ity of tablet 0.25 01:00: 20:50 QHSPRN, [place] mg 00 :59 Starting Medical on [facility] Branch 10/09/21 at 2000, Until [place] 10/10/21 at 1550, SUSI, Insomnia magnesium 2021- No 2g 2 g, IV Univ ers sulfate in 10-09 Piggyback, it y of water 2 22:15: 00:43 Administer [place] as gram/50 mL 00 :00 over 60 Medica l (4 %) Minutes, Branch infusion 2 ONCE, 1 g dose, On [facility] 10/09/21 at 1715, SUSI D5W-LR IV 0 Yes 1000mL at 20 Unive rs infusion 6-25 mL/hr, IV ity of 1,000 mL 21:15: Infusion, [place] 00 CONTINUOUS Medical , Starting Branch on [facility] 10/09/21 at 1615, Until Discontinu ed, Routine D5W-LR IV Yes 1000mL at 20 Unive rs infusion 6-25 mL/hr, IV ity of 1,000 mL 21:15: [place]fusion, [place] 00 CONTINUOUS Medical , Starting Branch on [facility] 10/09/21 at 1615, Until Discontinu ed, Routine HYDROmorpho 2021- No IV Unive rs ne 10 mg/50 10-09 Infusion, it y of mL 0.9% 16:45: 15:55 50 mL, [place] NaCL 00 :40 CONTINUOUS Medical (DILAUDID) , 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 [facility] 10/09/21 at 1145, Until [place] 10/10/21 at 1055 acetaminoph 2021- No 650mg 650 mg, U nivers en 10-09 Oral, ity of (TYLENOL) 15:39: 15:55 Q6HPRN, [place] tablet 650 11 :40 Starting Medic al mg on [facility] Branch 10/09/21 at 1039, Until [place] 10/10/21 at 1055, Routine, Alternate with Viola for pain scale 4-6 HYDROmorphO 2021- No Slow IV Un brayden ne 10-09 Push, ity of (DILAUDID)2 15:33: 15:55 Routine [place] mg/mL Load 42 :40 Medical [facility] Rescue Branch dose polyethylen Yes 17g 17 g, Unive rs e glycol 10-09 Oral, ity of 3350 powder 14:00: DAILY, [place] 17 g 00 First dose Medical on [facility] Branch 10/09/21 at 0900, Until Discontinu ed, Routine sennosides- Yes 1{tbl} 1 tablet, Univers docusate 10-09 Oral, ity of sodium 14:00: DAILY, [place] (SENOKOT-S) 00 First dose Me dical 8.6-50 mg on [facility] per tablet 10/09/21 at 1 tablet 0900, Until Discontinu ed, Routine polyethylen Yes 17g 17 g, Unive rs e glycol -25 Oral, ity of 3350 powder 14:00: DAILY, [place] 17 g 00 First dose Medical on [facility] Branch 10/09/21 at 0900, Until Discontinu ed, Routine polyethylen Yes 17g 17 g, Unive rs e glycol -25 Oral, ity of 3350 powder 14:00: DAILY, [place] 17 g 00 First dose Medical on Sat Branch 10/09/21 at 0900, Until Discontinu ed, Routine sennosides- 2021- No 1{tbl} 1 tablet, Univers docusate 10-09 Oral, ity of sodium 14:00: 12:21 DAILY, [place] (SENOKOT-S) 00 :42 First dose Me dical 8.6-50 mg on Sat Branch per tablet 10/09/21 at 1 tablet 0900, Until Discontinu ed, Routine HYDROcodone 2021- No 1{tbl} 1 tablet, Univers -acetaminop 10-09 Oral, ity of hen (NORCO) 13:39: 15:55 Q6HPRN, [place] 10-325 mg 28 :40 Starting Medica l tablet 1 on Sat Branch tablet 10/09/21 at 0839, Until 10/10/21 at 1055, Routine, Pain (scale 7-10) ferrous No 300mg 300 mg, Unive rs sulfate 300 10-09 Oral, TID, i ty of mg (60 mg 13:00: 12:20 First dose [place] iron)/5 mL 00 :59 on [facility] Medical solution 10/09/21 at [facility] h 300 mg 0800, Until Discontinu ed, Routine D5W-LR IV No 1000mL at 75 Univ ers infusion 10-09- mL/hr, IV ity o f 1,000 mL 10:45: 21:03 Infusion, [place] as 00 :24 CONTINUOUS Medical , Starting Branch on 10/09/21 at 0545, Until 10/09/21 at 1603, Routine diphenhydrA No 25mg 25 mg, Uni vers MINE 10-09 Intravenou ity of (BENADRYL) 10:15: 10:21 s, ONCE, 1 [place] injection 00 :00 dose, On Medica l 25 mg Sat Branch 10/09/21 at 0530, Routine diphenhydrA No 25mg 25 mg, Uni vers MINE 10-09 Intravenou ity of (BENADRYL) 01:45: 01:39 s, ONCE, 1 [place] injection 00 :00 dose, On Medica l 25 mg Mon Branch 10/08/21 at 2045, Routine labetaloL Yes [...] doses, Starting on Mon10/08/21 at 1558, Until 10/09/21 at 0841, Routine, For systolic over 140 per cuff. FENTanyl Yes 1000ug IV Univers [employer] COMMUNITY MANAGER 1,000 10-08 Infusion, ity o f mcg in NaCl 18:45: CONTINUOUS [place] 0.9%(NS) 00 , Starting Medic al 100 mL RTU on Mon Branch 10/08/21 at 1345, Until Discontinu ed, SUSI FENTanyl 2021-0 2021- No 1000ug IV Univer s [employer] COMM[employer]ITY MANAGER 1,000 10-08 Infusion, ity of mcg in NaCl 18:45: 15:36 CONTINUOUS [place] 0.9%(NS) 00 :35 , Starting Medic al 100 mL RTU on Mon10/08/21 at 1345, Until 10/09/21 at 1036, SUSI magnesium 2021-0 2021- No 2g 2 g, IV Univ ers sulfate in 10-08 Piggyback, it y of water 2 15:00: 16:49 Administer [place] as gram/50 mL 00 :00 over 60 Medica l (4 %) Minutes, Branch infusion 2 ONCE, 1 g dose, On Mon10/08/21 at 1000, Routine methocarbam Yes 500mg 500 mg, Un bray[place] oL 10-08 Oral, ity of (ROBAXIN) 14:03: QIDPRN, [place] tablet 500 00 Starting Medic al mg on Mon Branch 10/08/21 at 0903, Until Discontinu ed, SUSI, Muscle Spasms methocarbam 2022-0 Yes 500mg 500 mg, Un bray[place] oL -24 Oral, ity of (ROBAXIN) 14:03: QIDPRN, [place] tablet 500 00 Starting Medic al mg on Mon Branch 10/08/21 at 0903, Until Discontinu ed, SUSI, Muscle Spasms methocarbam 2022-0 Yes 500mg 500 mg, Un brayden oL -24 Oral, ity of (ROBAXIN) 14:03: QIDPRN, [place] tablet 500 00 Starting Medic al mg on Mon Branch 10/08/21 at 0903, Until Discontinu ed, SUSI, Muscle Spasms FENTanyl 2021-0 2022- No 1000ug IV Univer s [employer] COMMUNITY MANAGER 1,000 10-08- Infusion, ity of mcg in NaCl 10:45: 18:04 CONTINUOUS [place] 0.9%(NS) 00 :44 , Starting Medic al 100 mL RTU on Mon10/08/21 at 0545, Until Mon10/08/21 at 1304, SUSI ondansetron 2022-0 Yes 4mg 4 mg, Slow Univers (ZOFRAN 6-24 IV Push, ity of (PF)) 09:47: Q6HPRN, [place] injection 4 52 Nausea and Me dical [...] ed, Routine, Nausea and Vomiting (N/V) proMETHazin 2-0 Yes 25mg 25 mg, IV U nivers e 6-24 Piggyback, ity of (PHENERGAN) 09:38: at 200 [place] 25 mg in NS 42 mL/hr Medical 50 mL IV Administer Branc h piggyback over 15 (CNR) Minutes, Q4HPRN, Starting on Mon10/08/21 at 0438, Until Discontinu ed, Routine, Nausea and Vomiting (N/V) proMETHazin 2-0 Yes 25mg 25 mg, IV U nivers e 6-24 Piggyback, ity of (PHENERGAN) 09:38: at 200 [place] 25 mg in NS 42 mL/hr Medical 50 mL IV Administer Branc h piggyback over 15 (CNR) Minutes, Q4HPRN, Starting on Mon10/08/21 at 0438, Until Discontinu ed, Routine, Nausea and Vomiting (N/V) naloxone 2021-0 Yes .1mg 0.1 mg, Univer s (NARCAN) 6-24 Slow IV ity of injection 09:38: Push, [place] 0.1 mg 00 SEE-INSTRU Medical CTIONS, Branch Starting on Mon10/08/21 at 0438, Until Discontinu ed, Routine FENTanyl 2021-0 Yes Slow IV Univer s (SUBLIMAZE) 6-24 Push, ity of 50 mcg/mL 09:38: Routine [place] Load & 00 Medical Rescue dose Branch naloxone 2021-0 Yes .1mg 0.1 mg, Univer s (NARCAN) 10-08 Slow IV ity of injection 09:38: Push, [place] 0.1 mg 00 SEE-INSTRU Medical CTIONS, Branch Starting on Mon10/08/21 at 0438, Until Discontinu ed, Routine naloxone Yes .1mg 0.1 mg, Univer s (NARCAN) 10-08 Slow IV ity of injection 09:38: Push, [place] 0.1 mg 00 SEE-INSTRU Medical CTIONS, Branch Starting on Mon10/08/21 at 0438, Until Discontinu ed, Routine FENTanyl 2021- No Slow IV Unive rs (SUBLIMAZE) 10-08 Push, ity of 50 mcg/mL 09:38: 15:36 Routine [place] Load & 00 :20 [facility] Rescue dose Branch bupivacaine 2021- No PRN, Unive rs liposome 10-08 Starting ity of (PF) 08:49: 09:41 on Mon (EXPAREL 00 :23 10/08/21 at Medic al (PF)) 1.3 % 0349, Branch (13.3 Until Mon mg/mL) 10/08/21 at injection 0441, Routine, Intra-op sodium 2021-0 Yes PRN, Univers chloride 10-08 Starting ity of 0.9 % 07:00: on Mon irrigation 10/08/21 at Med ical solution 0200, Branch Until Discontinu ed, Intra-op sodium 2021-0 Yes PRN, Univers chloride 10-08 Starting ity of 0.9 % 07:00: on Mon irrigation 10/08/21 at Med ical solution 0200, Branch Until Discontinu ed, Intra-op sodium 2021-0 Yes PRN, Univers chloride 10-08 Starting ity of 0.9 % 07:00: on Mon irrigation 10/08/21 at Med ical solution 0200, [...] No 25mg 25 mg, Uni vers MINE 10-0824 Slow IV ity of (BENADRYL) 05:30: 04:31 Push, [place] injection 00 :00 ONCE, 1 Medical 25 mg dose, On Branch Mon10/08/21 at 0030, Routine ibuprofen Yes ibuprofen Uni vers 800 mg 10-08 800 mg ity of tablet 04:41: tablet TAKE 1 Medical TABLET BY Branch MOUTH TWICE A DAY NEEDED HYDROcodone Yes hydrocodon Univers -acetaminop 24 e 10 ity of hen 10-325 04:41: mg-acetami [place] mg tablet 24 nophen 325 Medi frank mg tablet Branch TAKE 1 TABLET BY MOUTH FOUR TIMES A DAY NEEDED FOR 30 DAYS gabapentin Yes gabapentin U nivers 100 mg 10-08 100 mg ity of capsule 04:41: capsule 24 TAKE 1 Medical CAPSULE BY Branch MOUTH EVERY DAY AT BEDTIME FOR 30 DAYS acetaminoph Yes acetaminop Univers en-codeine 10-08 hen 300 ity of 300-30 mg 04:41: mg-codeine [place] tablet 24 30 mg Medical tablet Branch TAKE 1 TABLET BY MOUTH 2-3 TIMES EVERY DAY NEEDED FOR PAIN. acetaminoph 202- No 1000mg 1,000 mg, Univers en ADULT 10-08 06-24 IV ity of (OFIRMEV) 03:00: 20:15 [place]fusion, [place] injection 00 :00 at 400 Medical 1,000 mg mL/hr Branch Administer over 15 Minutes, Q8H, 3 doses, First dose (after last modificati on) on Jen[place] 10/07/21 at 2200, Last dose on Mon10/08/21 at 1400, Routine
Indicatio n: Perioperat zahida Patient gabapentin Yes 300mg 300 mg, Uni vers (NEURONTIN) 6-24 Oral, TID, it y of capsule 300 01:00: First dose [place] mg 00 on [facility] 10/07/21 at [place] 1999, Until Discontinu ed, Routine gabapentin Yes 300mg 300 mg, Uni vers (NEURONTIN) 6-24 Oral, TID, it y of capsule 300 01:00: First dose [place] mg 00 on [facility] 10/07/21 at [place] 1999, Until Discontinu ed, Routine gabapentin 0 Yes 300mg 300 mg, Uni vers (NEURONTIN) 6-24 Oral, TID, it y of capsule 300 01:00: First dose [place] mg 00 on [facility] 10/07/21 at [place] 1999, Until Discontinu ed, Routine ibuprofen 0 Yes ibuprofen Uni vers 800 mg 6-24 800 mg ity of tablet 00:39: tablet [place] 38 TAKE 1 Medical TABLET BY Branch MOUTH TWICE A DAY NEEDED HYDROcodone 0 Yes hydrocodon Univers -acetaminop 624 e 10 ity of hen 10-325 00:39: mg-acetami [place] mg tablet 38 nophen 325 Medi frank mg tablet [place] TAKE 1 TABLET BY MOUTH FOUR TIMES A DAY NEEDED FOR 30 DAYS gabapentin 0 Yes gabapentin U nivers 100 mg 6-24 100 mg ity of capsule 00:39: capsule [place] 38 TAKE 1 Medical CAPSULE BY Branch MOUTH EVERY DAY AT BEDTIME FOR 30 DAYS acetaminoph 0 Yes acetaminop Univers en-codeine 24 hen 300 ity of 300-30 mg 00:39: mg-codeine [place] tablet 38 30 mg Medical tablet Branch TAKE 1 TABLET BY MOUTH 2-3 TIMES EVERY DAY NEEDED FOR PAIN. ketorolac No 30mg 30 mg, Unive rs (TORADOL) 10-07 Slow IV ity of injection 23:00: 09:45 Push, Q6H, [place] 30 mg 00 :12 4 doses, Medical First dose Branch on Jeny 10/07/21 at 1800, Last dose on Mon10/08/21 at 1200, Routine oxyCODONE No 10mg 10 mg, Unive rs immediate [...] 1615, Until Discontinu ed, Routine [id number]-[id number] IV No 1000mL at 125 Uni vers infusion [...] 10/07/21 at 1615, Routine, PACU morpHINE (4 No 4mg 4 mg, Slow Univers mg/mL) [...] 0445, Routine, Nausea and Vomiting (N/V) HYDROmorphO 2021- No .2mg 0.2 mg, Un brayden [...] [place] 10/07/21 at 1720, Routine, Pain (scale 4-6), PACU sugammadex 2021- No IV Push, Un brayden (BRIDION) 10-07 ONCE INTRA ity of injection 20:51: 23:25 PROCEDURE, [place] 00 :15 Starting Medical on [place] Branch 10/07/21 at 1551, Until [place] 10/07/21 at 1825, Routine, Intra-op sodium 2021- No PRN, Univers chloride 10-07 Starting ity of 0.9 % 20:50: 22:20 on Jeny [place] irrigation 00 :12 10/07/21 at Med ical solution 1550, Branch Until [place] 10/07/21 at 1720, Intra-op lidocaine-e 2021- No PRN, Unive rs pinephrine 10-07 Starting ity of (XYLOCAINE 20:49: 22:20 on [place] WITH 00 :12 10/07/21 at Medical EPINEPHRINE 1549, Branch ) 1 Until [place] %-1:100,000 10/07/21 at injection 1720, Routine, Intra-op bupivacaine 2021- No PRN, Unive rs (preserv 10-07 Starting ity of free) 20:48: 22:20 on Jeny [place] (SENSORCAIN 00 :12 10/07/21 at Ms dical E MPF) 0.25 1548, Branch % (2.5 Until Jen[place] mg/mL) 10/07/21 at injection 1720, Routine, Intra-op phenylephri 2021- No Slow IV Un brayden ne 10-07 Push, ONCE ity of (VAZCULEP) 20:36: 21:01 INTRA [place] injection 00 :33 PROCEDURE, Medi frank Starting Branch on Jeny 10/07/21 at 1536, Until [place] 10/07/21 at 1601, Routine, Intra-op FENTanyl PF 2021- No Epidural, Univers (SUBLIMAZE 10-07 ONCE INTRA it y of (PF)) 20:36: 21:01 PROCEDURE, [place] injection 00 :33 Starting Medica l on Jeny Branch 10/07/21 at 1536, Until [place] 10/07/21 at 1601, Routine, Intra-op ondansetron 2021- No Slow IV Un brayden (ZOFRAN 10-07 Push, ONCE ity o f (PF)) 20:27: 21:01 INTRA [place] injection 00 :33 PROCEDURE, Medi frank Starting Branch on Jeny 10/07/21 at 1527, Until [place] 10/07/21 at 1601, Routine, Intra-op acetaminoph 2021- No IV Unive rs en ADULT 10-07 Infusion, ity o f ([facility]) 19:43: 21:01 Administer [place] injection 00 :33 over 15 Medical Minutes, Branch ONCE INTRA PROCEDURE, Starting on Jeny 10/07/21 at 1443, Until [place] 10/07/21 at 1601, Routine, Intra-op calcium 2021- No Intravenou Uni vers chloride 10-07 s, ONCE ity of 100 mg/mL 18:25: 21:01 INTRA [place] (10 %) 00 : PROCEDURE, Medical syringe Starting Branch on Jeny 10/07/21 at 1325, Until [place] 10/07/21 at 1601, Routine, Intra-op aminocaproi 2021- No IV Unive rs c acid 10-07 Infusion, ity of (AMICAR) 5 17:28: 21:01 CONTINUOUS [place] g in NaCl 00 : PRN, Medical 0.9% (NS) Starting Branch 250 [...] (5 mg/mL) 17:22: 21:01 INTRA [place] syringe : PROCEDURE, Medica l Starting Branch on Jeny 10/07/21 at 1222, Until [place] 10/07/21 at 1601, Routine, Intra-op dexamethaso 2021- No IV Push, U nivers ne 10-07 ONCE INTRA ity of (DECADRON 17:20: 21:01 PROCEDURE, [place] PHOSPHATE) 00 : Starting Medic al injection on Jeny Branch 10/07/21 at 1220, Until [place] 10/07/21 at 1601, Routine, Intra-op Transfuse 2021- No Routine Univ ers Packed RBC 10-07 ity of (in units)~ 17:14: 21:01 [place] 13 :33 Medical Branch ceFAZolin 2021- No Slow IV Univ ers (ANCEF) 10-07 Push, ONCE ity o f injection 17:01: 21:01 INTRA [place] 00 :33 PROCEDURE, Medical Starting Branch on [...] Push, ONCE ity of 16:45: 21:01 INTRA [place] 00 :33 PROCEDURE, Medical Starting Branch on Jeny 10/07/21 at 1145, Until [place] 10/07/21 at 1601, Routine, Intra-op HYDROmorphO 2021- No Slow IV Un brayden ne 10-07 Push, ONCE ity of (DILAUDID) 16:45: 21:01 INTRA [place] injection 00 :33 PROCEDURE, Medi frank Starting Branch on Jeny 10/07/21 at 1145, Until [place] 10/07/21 at 1601, Routine, Intra-op midazolam 2021- No IV Push, Uni vers (VERSED) 10-07 ONCE INTRA ity of injection 16:37: 21:01 PROCEDURE, [place] 00 :33 Starting Medical on Jen[place] Branch 10/07/21 at 1137, Until [place] 10/07/21 at 1601, Routine, Intra-op lactated 2021- No IV Univers ringers IV 10-07 Infusion, ity of infusion 16:36: 21:01 CONTINUOUS [place] 00 :33 PRN, Medical Starting Branch on Jeny 10/07/21 at 1136, Until [place] 10/07/21 at 1601, Routine, Intra-op metroNIDAZO No 500mg 500 mg, IV Univers LE in NaCl 10-07 Piggyback, it y of (iso-os) 15:55: 17:10 [facility] [place] (FLAGYL 50 :00 HOLDING Medical I.V.) RTU ONCE, 1 Branch IV infusion dose, 500 mg Starting on Jeny 10/07/21 at 1055, Until [place] 10/07/21 at 1210, Administer over 75 Minutes, 100 mL
Reas on for Anti-Infec tive: Surgical Prophylaxi s
[place] rgical Prophylaxi s: LIQUOR TESTER
Duration of therapy: within 24 hours of [...] Branch tablet 10/07/21 at 0000, Routine lactated No 1000mL at 42 Unive rs ringers IV 10-06 mL/hr, ity of infusion 19:45: 03:50 1,000 mL, Eladio as 1,000 mL 00 :00 IV Medical Infusion, Branch ONCE, 1 dose, On 10/06/21 at 1445, Routine, DSU Pre-op carisoprodo 0 Yes 350mg Take 350 U nivers L 350 mg 5-06 mg by ity of tablet 00:00: mouth [place] 00 daily. Medical Branch carisoprodo 0 Yes 350mg Take 350 U nivers L 350 mg 5-06 mg by ity of tablet 00:00: mouth [place] 00 daily. Medical Branch carisoprodo 0 Yes 350mg Take 350 U nivers L 350 mg 5-06 mg by ity of tablet 00:00: mouth [place] 00 daily. Medical Branch carisoprodo 2022-0 Yes 350mg Take 350 U nivers L 350 mg 5-06 mg by ity of tablet 00:00: mouth [place] 00 daily. Medical Branch carisoprodo 2-0 Yes 350mg Take 350 U nivers L 350 mg 5-06 mg by ity of tablet 00:00: mouth [place] 00 daily. Medical Branch carisoprodo 2-0 Yes 350mg Take 350 U nivers L 350 mg 5-06 mg by ity of tablet 00:00: mouth [place] 00 daily. Medical Branch carisoprodo 2-0 Yes 350mg Take 350 U nivers L 350 mg 5-06 mg by ity of tablet 00:00: mouth [place] 00 daily. Medical Branch carisoprodo 2-0 Yes 350mg Take 350 U nivers L 350 mg 5-06 mg by ity of tablet 00:00: mouth [place] 00 daily. Medical Branch carisoprodo 2-0 Yes 350mg Take 350 U nivers L 350 mg 5-06 mg by ity of tablet 00:00: mouth [place] 00 daily. [facility] Immunizations Ordered Filled Immunization Date Status Comments [facility] e Immunization Name Name TDAP (ADACEL) 2018-10-15 Completed University of VACCINE 00:00:00 [facility] TDAP (ADACEL) 2018-10-15 Completed University of VACCINE 00:00:00 [facility] Branch TDAP (ADACEL) 2018-10-15 Completed University of VACCINE 00:00:00 [facility] TDAP (ADACEL) 2018-10-15 Completed University of VACCINE 00:00:00 [facility] TDAP (ADACEL) 2018-10-15 Completed University of VACCINE 00:00:00 [facility] Branch TDAP (ADACEL) 2018-10-15 Completed University of VACCINE 00:00:00 [facility] Branch TDAP (ADACEL) 2018-10-15 Completed University of VACCINE 00:00:00 [facility] Branch TDAP (ADACEL) 2018-10-15 Completed University of VACCINE 00:00:00 [facility] Branch TDAP (ADACEL) 2018-10-15 Completed University of VACCINE 00:00:00 [facility] Vital Signs Vital Name Observation Time Observation Value Comments Source Systolic blood 2021-10-12 16:39:00 121 mm[Hg] Univer sity of pressure [facility] Diastolic blood 2021-10-12 16:39:00 67 mm[Hg] Unive rsity of pressure [place] [facility] Heart rate 2021-10-12 16:39:00 59 /min [facility] [place] [facility] Body temperature 2021-10-12 16:39:00 37.28 Radha Univ ersity of [place] [facility] Respiratory rate 2021-10-12 16:39:00 18 /min Univ ersity of [place] [facility] Oxygen saturation in 2021-10-12 16:39:00 97 /min University of Arterial blood by [place] [employer] frank Pulse oximetry Branch Body height 2021-10-10 13:00:00 162.6 cm [facility] [place] [facility] Body weight 2021-10-10 13:00:00 83.7 kg [facility] [place] [facility] BMI 2021-10-10 13:00:00 31.66 kg/m2 [facility] [place] [facility] Systolic blood 2021-10-12 16:39:00 121 mm[Hg] Univer sity of pressure [place] [facility] Diastolic blood 2021-10-12 16:39:00 67 mm[Hg] Unive rsity of pressure [place] [facility] Heart rate 2021-10-12 16:39:00 59 /min [facility] [place] [facility] Body temperature 2021-10-12 16:39:00 37.28 Radha Univ [facility] [place] [facility] Respiratory rate 2021-10-12 16:39:00 18 /min Univ ersity [facility] [place] [facility] Oxygen saturation in 2021-10-12 16:39:00 97 /min University of Arterial blood by [place] [employer] frank Pulse oximetry Branch Body height 2021-10-10 13:00:00 162.6 cm [facility] [place] [facility] Body weight 2021-10-10 13:00:00 83.7 kg [facility] [place] [facility] BMI 2021-10-10 13:00:00 31.66 kg/m2 [facility] [place] [facility] Systolic blood 2021-10-08 06:29:00 100 mm[Hg] Univer sity of pressure [place] [facility] Diastolic blood 2021-10-08 06:29:00 60 mm[Hg] Unive rsity of pressure [place] [facility] Heart rate 2021-10-08 06:29:00 73 /min [facility] [place] [facility] Body temperature 2021-10-08 06:29:00 37 Radha Univ [facility] [place] [facility] Respiratory rate 2021-10-08 06:29:00 22 /min Univ [facility] [place] [facility] Oxygen saturation in 2021-10-08 06:29:00 100 /min University of Arterial blood by [place] [employer] frank Pulse oximetry Branch Body weight 2021-10-08 05:40:00 88 kg [facility] [place] [facility] BMI 2021-10-08 05:40:00 31.66 kg/m2 [facility] [place] [facility] Body height 2021-10-07 05:00:00 162.6 cm [facility] [place] [facility] Systolic blood 2021-10-07 21:15:00 118 mm[Hg] Univer sity of pressure [place] [facility] Diastolic blood 2021-10-07 21:15:00 64 mm[Hg] Unive rsity of pressure [place] [facility] Heart rate 2021-10-07 21:15:00 76 /min [facility] [place] [facility] Respiratory rate 2021-10-07 21:15:00 15 /min [facility] [place] [facility] Oxygen saturation in 2021-10-07 21:15:00 100 /min University of Arterial blood by [place] [employer] frank Pulse oximetry Branch Body temperature 2021-10-07 21:00:00 36.94 Radha [facility] [place] [facility] Body height 2021-10-07 05:00:00 162.6 cm [facility] [place] [facility] Body weight 2021-10-06 20:20:00 75.4 kg [facility] [place] [facility] BMI 2021-10-06 20:20:00 33.30 kg/m2 [facility] [place] [facility] Systolic blood 2021-10-07 21:15:00 118 mm[Hg] Univer sity of pressure [place] [facility] Diastolic blood 2021-10-07 21:15:00 64 mm[Hg] Unive rsity of pressure [place] [facility] Heart rate 2021-10-07 21:15:00 76 /min [facility] [place] [facility] Respiratory rate 2021-10-07 21:15:00 15 /min [facility] [place] [facility] Oxygen saturation in 2021-10-07 21:15:00 100 /min University of Arterial blood by [place] [employer] frank Pulse oximetry Branch Body temperature 2021-10-07 21:00:00 36.94 Radha [facility] Body height 2021-10-07 05:00:00 162.6 cm [facility] Body weight 2021-10-06 20:20:00 75.4 kg [facility] BMI 2021-10-06 20:20:00 33.30 kg/m2 [facility] Procedures Procedure Date / Time Performing Clinician Source Performed CBC WITH DIFF 2021-10-12 11:42:00 Alison Zamorano [facility] URINALYSIS 2021-10-11 15:27:00 oLna [facility] URINALYSIS 2021-10-11 15:27:00 Lona [facility] URINE CULTURE 2021-10-11 15:27:00 Lona [facility] CBC WITHOUT DIFF 2021-10-10 22:32:00 Yunier [facility] CBC WITHOUT DIFF 2021-10-10 22:32:00 Yunier [facility] PHOSPHORUS 2021-10-10 11:08:00 Yunier [facility] MAGNESIUM 2021-10-10 11:08:00 Yunier [facility] BASIC METABOLIC PANEL (NA, 2021-10-10 11:08:00 Nicholas Faye [facility] K, CL, CO2, GLUCOSE, BUN, Medica l Branch CREATININE, [place]) CBC WITHOUT DIFF 2021-10-10 11:08:00 Yunier [facility] PHOSPHORUS 2021-10-10 11:08:00 Yunier [facility] MAGNESIUM 2021-10-10 11:08:00 Yunier [facility] BASIC METABOLIC PANEL (NA, 2021-10-10 11:08:00 Nicholas Faye [facility] K, CL, CO2, GLUCOSE, BUN, Medica l Branch CREATININE, CA) CBC WITHOUT DIFF 2021-10-10 11:08:00 Yunier [facility] CBC WITHOUT DIFF 2021-10-09 23:22:00 Yunier [facility] CBC WITHOUT DIFF 2021-10-09 23:22:00 Yunier [facility] CBC WITHOUT DIFF 2021-10-09 16:22:00 Yunier, [facility] CBC WITHOUT DIFF 2021-10-09 16:22:00 Yunier [facility] TRANSFUSE PACKED RBC 2021-10-09 10:31:00 Clara [facility] TRANSFUSE PACKED RBC 2021-10-09 10:31:[address] [facility] PREPARE PACKED RBC 2021-10-09 10:06:26 [facility] PREPARE PACKED RBC 2021-10-09 10:06:26 Monsechip [facility] PHOSPHORUS 2021-10-09 08:35:00 [facility] MAGNESIUM 2021-10-09 08:35:00 [facility] BASIC METABOLIC PANEL (NA, 2021-10-09 08:35:00 Marcela Khan [facility] K, CL, CO2, GLUCOSE, BUN, Medica l Branch CREATININE, CA) CBC WITHOUT DIFF 2021-10-09 08:35:00 Bill [facility] PHOSPHORUS 2021-10-09 08:35:00 [facility] MAGNESIUM 2021-10-09 08:35:00 [facility] BASIC METABOLIC PANEL (NA, 2021-10-09 08:35:00 Marcela Khan [facility] K, CL, CO2, GLUCOSE, BUN, Medica l Branch CREATININE, CA) CBC WITHOUT DIFF 2021-10-09 08:35:00 Bill [facility] CBC WITHOUT DIFF 2021-10-09 01:26:00 Bill [facility] CBC WITHOUT DIFF 2021-10-09 01:26:00 Bill [facility] BASIC METABOLIC PANEL (NA, 2021-10-09 00:09:00 Marcela Khan [facility] K, CL, CO2, GLUCOSE, BUN, Medica l Branch CREATININE, CA) BASIC METABOLIC PANEL (NA, 2021-10-09 00:09:00 Marcela Khan [facility] K, CL, CO2, GLUCOSE, BUN, Medica l Branch CREATININE, CA) BASIC METABOLIC PANEL (NA, 2021-10-08 15:10:00 Yunier, Nicholas U niversity [facility] K, CL, CO2, GLUCOSE, BUN, Medica l Branch CREATININE, CA) CBC WITHOUT DIFF 2021-10-08 15:10:00 [facility] BASIC METABOLIC PANEL (NA, 2021-10-08 15:10:00 Yunier, Nicholas U niversity [facility] K, CL, CO2, GLUCOSE, BUN, Medica l Branch CREATININE, CA) CBC WITHOUT DIFF 2021-10-08 15:10:00 [facility] [place] [facility] BASIC METABOLIC PANEL (NA, 2021-10-08 15:10:00 [facility], CO2, GLUCOSE, BUN, Medica l Branch CREATININE, CA) CBC WITHOUT DIFF 2021-10-08 15:10:00 [facility]The [facility] [place] [facility] AC PANEL 20 + LACTIC ACID 2021-10-08 10:24:00 Dalia [facility] AC PANEL 20 + LACTIC ACID 2021-10-08 10:24:00 Dalia [facility] AC PANEL 20 + LACTIC ACID 2021-10-08 10:24:00 [facility] 2021-10-08 10:20:00 Yamileth [facility] MAGNESIUM 2021-10-08 10:20:00 Yamileth [facility] HEPATIC FUNCTION PANEL 2021-10-08 10:20:00 Yamileth [facility] ([id number]) (ALB,T.PRO,BILI Medical Branch T,BU/BC,ALT,AST,ALK PHOS) BASIC METABOLIC PANEL (NA, 2021-10-08 10:20:00 Dalia Carson [facility] K, CL, CO2, GLUCOSE, BUN, Medica l Branch CREATININE, CA) CBC WITH DIFF 2021-10-08 10:20:00 Alonso, Oxana [facility] GLYCOSYLATED HEMOGLOBIN 2021-10-08 10:20:00 Yamileth [facility] ([facility]) Medical [place] PROTHROMBIN TIME / INR 2021-10-08 10:20:00 Oxana Gupta [facility] ACTIVATED PARTIAL THRMPLAS 2021-10-08 10:20:00 Oxana Gupta [facility] FIBRINOGEN 2021-10-08 10:20:00 Oxana Gupta [facility] PHOSPHORUS 2021-10-08 10:20:00 Yamileth [facility] MAGNESIUM 2021-10-08 10:20:00 Yamileth [facility] HEPATIC FUNCTION PANEL 2021-10-08 10:20:00 Yamileth [facility] ([id number]) (ALB,T.PRO,BILI Medical Branch T,BU/BC,ALT,AST,ALK PHOS) BASIC METABOLIC PANEL (NA, 2021-10-08 10:20:00 Yamileth Dalia [facility] K, CL, CO2, GLUCOSE, BUN, Medica l Branch CREATININE, CA) CBC WITH DIFF 2021-10-08 10:20:00 Oxana Gupta [facility] GLYCOSYLATED HEMOGLOBIN 2021-10-08 10:20:00 Yamileth [facility] ([facility]) [facility] PROTHROMBIN TIME / INR 2021-10-08 10:20:00 Oxana Gupta [facility] ACTIVATED PARTIAL THRMPLAS 2021-10-08 10:20:00 Oxana Gupta [facility] FIBRINOGEN 2021-10-08 10:20:00 Oxana Gupta [facility] PHOSPHORUS 2021-10-08 10:20:00 Yamileth [facility] MAGNESIUM 2021-10-08 10:20:00 Yamileth [facility] HEPATIC FUNCTION PANEL 2021-10-08 10:20:00 Yamileth [facility] ([id number]) (ALB,T.PRO,BILI Medical Branch T,BU/BC,ALT,AST,ALK PHOS) BASIC METABOLIC PANEL (NA, 2021-10-08 10:20:00 Dalia Carson [facility] K, CL, CO2, GLUCOSE, BUN, Medica l Branch CREATININE, CA) CBC WITH DIFF 2021-10-08 10:20:00 Oxana Gupta [facility] GLYCOSYLATED HEMOGLOBIN 2021-10-08 10:20[facility] PROTHROMBIN TIME / INR 2021-10-08 10:20:00 Alonso Oxana [facility] ACTIVATED PARTIAL THRMPLAS 2021-10-08 10:20:[address] [facility] FIBRINOGEN 2021-10-08 10:20:00 Alonso Oxana [facility] PREPARE PLASMA 2021-10-08 09:48:16 [facility] 2021-10-08 09:48:16 Florencio Lr [facility] PREPARE PLASMA 2021-10-08 09:48:16 Jailene Matias [facility] PREPARE PACKED RBC 2021-10-08 09:47:11 Jailene [facility] PREPARE PACKED RBC 2021-10-08 09:47:11 Jailene [facility] PREPARE PACKED RBC 2021-10-08 09:47:11 Florencio Lr [facility] HB ECG ROUTINE & RHYTHM 2021-10-08 [facility] 2021-10-08 09:44[facility]YOPRECIPITATE 2021-10-08 08:58:00 [facility] [place] ([place] ) [facility] TRANSFUSE CRYOPRECIPITATE 2021-10-08 08:58:00 [facility] [place] ([place] ) [facility] TRANSFUSE CRYOPRECIPITATE 2021-10-08 08:58:00 Herrera [facility] (IN ML) [facility] ABG+COOX+NA+K+GLU+CA2+ 2021-10-08 08:55:00 Florencio Lr [facility] ABG+COOX+NA+K+GLU+CA2+ 2021-10-08 08:55:00 Florencio Lr [facility] PROTHROMBIN TIME / INR 2021-10-08 08:50:00 Judi Merino [facility] PROTHROMBIN TIME / INR 2021-10-08 08:50:00 Judi Merino G U [facility] PROTHROMBIN TIME / INR 2021-10-08 08:50:00 Judi Merino [facility] TRANSFUSE PLASMA 2021-10-08 08:31:00 Michael Andrews [facility] TRANSFUSE PLASMA 2021-10-08 08:31:00 Michael Andrews [facility] TRANSFUSE PLASMA 2021-10-08 08:31:00 Michael Andrews [facility] TRANSFUSE PACKED RBC 2021-10-08 08:28:00 Michael Andrews [facility] TRANSFUSE PACKED RBC 2021-10-08 08:28:00 Michael Andrews [facility] TRANSFUSE PACKED RBC 2021-10-08 08:28:00 Michael [facility] ABG+COOX+NA+K+GLU+CA2+ 2021-10-08 08:01:00 Florencio Lr [facility] ABG+COOX+NA+K+GLU+CA2+ 2021-10-08 08:01:00 Florencio Lr [facility] TRANSFUSE PLASMA (IN ML) 2021-10-08 07:55:00 Michael Andrews [facility] TRANSFUSE PLASMA (IN ML) 2021-10-08 07:55:00 Michael [facility] TRANSFUSE PACKED RBC 2021-10-08 07:50:00 Michael [facility] TRANSFUSE PACKED RBC 2021-10-08 07:50:00 Michael Andrews [facility] CBC WITHOUT DIFF 2021-10-08 07:46:[address] [facility] EXTRA TUBE SST 2021-10-08 07:46:[address] [facility] CBC WITHOUT DIFF 2021-10-08 07:46:[address] [facility] EXTRA TUBE SST 2021-10-08 07:46:[address] [facility] CBC WITHOUT DIFF 2021-10-08 07:46:[address] [facility] EXTRA TUBE SST 2021-10-08 07:46:00 [facility]OOX+NA+K+GLU+CA2+ 2021-10-08 07:43:00 Addison Lruong [facility] ABG+COOX+NA+K+GLU+CA2+ 2021-10-08 07:43:00 Addison Lruong [facility] TRANSFUSE PLASMA (IN ML) 2021-10-08 07:36:00 Michael Andrews [facility] TRANSFUSE PLASMA (IN ML) 2021-10-08 07:36:00 Michael Andrews [facility] FIBRINOGEN 2021-10-08 07:32:00 Judi Merino [facility] FIBRINOGEN 2021-10-08 07:32:00 Judi Merino [facility] FIBRINOGEN 2021-10-08 07:32:00 Judi Merino [facility] TRANSFUSE PACKED RBC 2021-10-08 07:30:[address] [facility] TRANSFUSE PLASMA (IN ML) 2021-10-08 07:30:00 Michael Andrews [facility] TRANSFUSE PACKED RBC 2021-10-08 07:30:[address] [facility] TRANSFUSE PLASMA (IN ML) 2021-10-08 07:30:00 Michael Andrews [facility] PREPARE CRYOPRECIPITATE 2021-10-08 07:24:24 Jailene [facility] PREPARE CRYOPRECIPITATE 2021-10-08 07:24:24 Jailene [facility] PREPARE CRYOPRECIPITATE 2021-10-08 07:24:24 Jailene [facility] TRANSFUSE PACKED RBC 2021-10-08 07:22:00 Michael [facility] TRANSFUSE PACKED RBC 2021-10-08 07:22:00 Michael [facility] TRANSFUSE PACKED RBC 2021-10-08 07:19:00 Michael Andrews [facility] TRANSFUSE PACKED RBC 2021-10-08 07:19:00 Michael Andrews [facility] ABG+COOX+NA+K+GLU+CA2+ 2021-10-08 07:13:00 Jailene [facility] ABG+COOX+NA+K+GLU+CA2+ 2021-10-08 07:13:00 Jailene Matias [facility] TRANSFUSE PLASMA (IN ML) 2021-10-08 07:08:00 Michael Andrews [facility] TRANSFUSE PLASMA (IN ML) 2021-10-08 07:08:00 Michael Andrews [facility] TRANSFUSE PLATELETS 2021-10-08 06:55:[facility] 2021-10-08 06:55:00 [facility] 2021-10-08 06:44:36 [facility] PREPARE PLATELETS 2021-10-08 06:44:36 Florencio Lr [facility] PREPARE PLATELETS 2021-10-08 06:44:36 Florencio [facility] EXPLORATORY LAPAROTOMY 2021-10-08 06:24:00 Connie Merinoah Milvia [facility] EVACUATION HEMATOMA PELVIC 2021-10-08 06:24:00 Judi Merino [facility] EXPLORATORY LAPAROTOMY 2021-10-08 06:24:00 Judi Merino [facility] EVACUATION HEMATOMA PELVIC 2021-10-08 06:24:00 Judi Merino [facility] FIBRINOGEN 2021-10-08 06:17:00 Darryl [facility] FIBRINOGEN 2021-10-08 06:17:00 Darryl [facility] FIBRINOGEN 2021-10-08 06:17:00 Darryl [facility] AC PANEL 21 + LACTIC ACID 2021-10-08 06:14:00 Elizabeth Mccray [facility] AC PANEL 21 + LACTIC ACID 2021-10-08 06:14:00 [facility]EL 21 + LACTIC ACID 2021-10-08 06:14:00 Elizabeth Mccray [facility] BASIC METABOLIC PANEL (NA, 2021-10-08 06:12:00 Yadira Mccray [facility] K, CL, CO2, GLUCOSE, BUN, Medica l Branch CREATININE, CA) CBC WITH DIFF 2021-10-08 06:12:00 [facility] INR 2021-10-08 06:12:00 Elizabeth [facility] ACTIVATED PARTIAL THRMPLAS 2021-10-08 06:12:00 Yadira Mccray [facility] FIBRINOGEN 2021-10-08 06:12:00 Elizabeth Mccray [facility] BASIC METABOLIC PANEL (NA, 2021-10-08 06:12:00 Yadira Mccray [facility] K, CL, CO2, GLUCOSE, BUN, Medica l Branch CREATININE, CA) CBC WITH DIFF 2021-10-08 06:12:00 Elizabeth Mccray [facility] PROTHROMBIN TIME / INR 2021-10-08 06:12:00 [facility] ACTIVATED PARTIAL THRMPLAS 2021-10-08 06:12:00 Yadira Mccray [facility] FIBRINOGEN 2021-10-08 06:12:00 Elizabeth Mccray [facility] BASIC METABOLIC PANEL (NA, 2021-10-08 06:12:00 Yadira Mccray [facility] K, CL, CO2, GLUCOSE, BUN, Medica l Branch CREATININE, CA) CBC WITH DIFF 2021-10-08 06:12:00 Elizabeth Mccray [facility] PROTHROMBIN TIME / INR 2021-10-08 06:12:[address] [facility] THRMPLAS 2021-10-08 06:12:00 Yadira Mccray [facility] FIBRINOGEN 2021-10-08 06:12:00 Elizabeth Mccray [facility] EXTERNAL PROVIDER RECORDS 2021-10-08 05:01:00 Doctor Unassigned, [facility] Name [facility] EXTERNAL PROVIDER RECORDS 2021-10-08 05:01:00 Doctor Unassigned, [facility] Name [facility] EXTERNAL PROVIDER RECORDS 2021-10-08 05:01:00 Doctor Unassigned, [facility] [place] [facility] TRANSFUSE PACKED RBC 2021-10-08 04:45:00 Monet [facility] TRANSFUSE PACKED RBC 2021-10-08 04:45:00 Ly [facility] MAGNESIUM 2021-10-08 04:36:00 Ly [facility] BASIC METABOLIC PANEL (NA, 2021-10-08 04:36:00 Ly, [facility]iana [facility] [place] K, CL, CO2, GLUCOSE, BUN, Medica l Branch CREATININE, CA) CBC WITH DIFF 2021-10-08 04:36:00 Ly, [facility] MAGNESIUM 2021-10-08 04:36:00 Ly, [facility] BASIC METABOLIC PANEL (NA, 2021-10-08 04:36:00 Ly, Viviana [facility] [place] K, CL, CO2, GLUCOSE, BUN, Medica l Branch CREATININE, CA) CBC WITH DIFF 2021-10-08 04:36:00 Ly, [facility] MAGNESIUM 2021-10-08 04:36:00 Ly, [facility] BASIC METABOLIC PANEL (NA, 2021-10-08 04:36:00 Ly, Viviana [facility] [place] K, CL, CO2, GLUCOSE, BUN, Medica l Branch CREATININE, CA) CBC WITH DIFF 2021-10-08 04:36:00 Ly, [facility] PREPARE PACKED RBC 2021-10-08 04:27:22 Ly, [facility] PREPARE PACKED RBC 2021-10-08 04:27:22 Ly, [facility] PREPARE PACKED RBC 2021-10-08 04:27:22 Ly, [facility] POCT GLUCOSE (AUTOMATED) 2021-10-08 03:51:00 Florencio Lr [facility] POCT GLUCOSE (AUTOMATED) 2021-10-08 03:51:00 Florencio Lr [facility] POCT GLUCOSE (AUTOMATED) 2021-10-08 03:51:00 Florencio Lr [facility] CBC WITH DIFF 2021-10-07 23:55:00 Hilario [facility] CBC WITH DIFF 2021-10-07 23:55:00 Eyada, [facility] CBC WITH DIFF 2021-10-07 23:55:00 [facility] RBC 2021-10-07 21:08:55 Naga [facility] PREPARE PACKED RBC 2021-10-07 21:08:55 Naga [facility] PREPARE PACKED RBC 2021-10-07 21:08:55 Naga [facility] SURGICAL PATHOLOGY EXAM 2021-10-07 20:37:00 [facility]ACK[facility] RBC 2021-10-07 17:19:00 [facility] TRANSFUSE PACKED RBC 2021-10-07 17:19:00 [facility] TRANSFUSE PACKED RBC 2021-10-07 17:19:00 [facility] INTUBATION 2021-10-07 16:49:00 Ronald [facility] LAPAROSCOPIC TOTAL 2021-10-07 16:12:00 [facility] ABDOMINAL HYSTERECTOMY Medical B ranch LAPAROSCOPIC 2021-10-07 16:12:[address] [facility] SALPINGO-OOPHORECTOMY Medical Br anch CYSTOSCOPY 2021-10-07 16:12:00 [facility] LAPAROSCOPIC TOTAL 2021-10-07 16:12:00 [facility] ABDOMINAL HYSTERECTOMY Medical B ranch LAPAROSCOPIC 2021-10-07 16:12:00 Florencio Lr [facility] SALPINGO-OOPHORECTOMY Medical Br anch CYSTOSCOPY 2021-10-07 16:12:[address] [facility] COMP. METABOLIC PANEL 2021-10-07 11:41:00 Alison Zamorano [facility] ([id number]) [facility] COMP. METABOLIC PANEL 2021-10-07 11:41:00 Alison Zamorano [facility] ([id number]) [facility] COMP. METABOLIC PANEL 2021-10-07 11:41:00 Alison Zamorano [facility] ([id number] CBC WITH DIFF 2021-10-07 00:30:00 Alison Zamorano [facility] PROTHROMBIN TIME / INR 2021-10-07 00:30:00 Alison Zamorano [facility] ACTIVATED PARTIAL THRMPLAS 2021-10-07 00:30:00 [facility] 2021-10-07 00:30:00 Alison Zamorano [facility] CBC WITH DIFF 2021-10-07 00:30:00 Alison Zamorano [facility] PROTHROMBIN TIME / INR 2021-10-07 00:30:00 Alison Zamorano [facility] ACTIVATED PARTIAL THRMPLAS 2021-10-07 00:30:00 [facility] F[facility] 2021-10-07 00:30:00 Alison Zamorano [facility] CBC WITH DIFF 2021-10-07 00:30:00 Alison Zamorano [facility] PROTHROMBIN TIME / INR 2021-10-07 00:30:00 Alison Zamorano [facility] ACTIVATED PARTIAL THRMPLAS 2021-10-07 00:30:00 [facility] FIB[facility] 2021-10-07 00:30:00 Alison Zamorano [facility] HB ABO GROUPING 2021-10-06 21:00:00 N[facility] HB ABO GROUPING 2021-10-06 21:00:00 [facility] HB ABO GROUPING 2021-10-06 21:00:00 [facility] POCT TEST 2021-10-06 20:12:00 [facility] POCT TEST 2021-10-06 20:12:00 [facility] POCT TEST 2021-10-06 20:12:00 [facility] COVID-19 (ID NOW RAPID 2021-10-06 20:09:00 Lr Matias [facility] TESTING) Medical Branch LAB ONLY COVID 2021-10-06 20:09:00 Lr, Matias Timo [facility] COVID-19 (ID NOW RAPID 2021-10-06 20:09:00 Jailene Matias [facility] TESTING) Medical Branch LAB ONLY COVID 2021-10-06 20:09:00 LrFlorencioh [facility] COVID-19 (ID NOW RAPID 2021-10-06 20:09:00 LrFlorencio [facility] TESTING) Medical Branch LAB ONLY COVID 2021-10-06 20:09:00 LrFlorencio parish [facility] HOSPITAL ADMISSION 2021-10-06 05:01:00 Doctor Unassigned, [facility] [place] [facility] Encounters Start End Encounter Admission Attending Care Care Encounter Source Date/Time Date/Time Type Type Clinicians Facility Department ID 2021-10-06 Inpatient R [facility] [id number] Univers 14:42:00 [facility] 2021-10-06 Hospital [facility], 1.2.840.5 [id number] Univers 14:42:00 Encounter [facility] 77033.1.1 [facility] 3.104.2.7 [place] .3.459773 Medica l .8 [place] 2021-10-06 Inpatient R [facility] [id number] Univers 14:42:00 [facility] 2020-05-03 Inpatient UR Maria G, [facility] [id number] [facility] 03:53:00 [place] [address] [facility] 2021-11-03 2021-11-03 Telephone LITTLE Loco 1.2.840.114 [id number] Univers 00:00:00 00:00:00 [facility] 350.1.13.10 i ty of [id number] [address] Branch 2021-10-29 2021-10-29 Outpatient R [facility] [id number] Univers 14:15:00 14:15:00 ity of [facility] 2021-10-21 2021-10-21 [facility] [id number] Univers 14:45:00 14:45:00 NICOLE ity of [facility] 2021-10-21 2021-10-21 Telephone Pgy3 UNIVERSIT 1.2.840.114 [id number] Univers 00:00:00 00:00:00 Y HEALTH 350.1.13.10 i ty of [facility] 4.2.7.2.[place] [id number] [facility] 113 Branch 2021-10-13 2021-10-13 Transition MARY Richard 1.2.840.114 [id number] Univers 00:00:00 00:00:00 of Care Sandi ARCE 350.1.13.10 [place] [id number] [facility] 403 Branch 2021-10-13 2021-10-13 Transition MARY Richard 1.2.840.114 [id number] Univers 00:00:00 00:00:00 of Care Sandi ARCE 350.1.13.10 [place] [id number] [facility] 403 Branch 2021-10-06 2021-10-12 Inpatient R ALDAIR, [facility] FEATHER WASHER [id number] Univers 14:42:00 14:14:00 NGOC ity of [facility] 2021-10-06 2021-10-12 Hospital Florencio Lr 1.2. 840.114 [id number] Univers 14:42:00 14:14:00 Encounter Ngoc Quinteros 350.1.13.10 ity of [facility] 4.2.7.2.686 Eladio as [id number] [facility] 091 Branch 2021-10-08 2021-10-08 Surgery OC Merino 1.2.840.114 [id number] Univers 01:30:00 03:41:00 Judi WOOD 350.1.13.10 it y of [facility] 4.2.7.2.686 Eladio as [id number] [facility] 103 Branch 2021-10-07 2021-10-07 Surgery Lr, 1.2.840.4 [id number] Univers 11:40:00 16:17:00 Matias 65686.1.1 ity of [facility] 3.104.2.7 [place] .3.154201 Medica l .8 Branch 2021-10-07 2021-10-07 Surgery OC Lr 1.2.840.114 [id number] Univers 11:40:00 16:17:00 Matias ISRAEL 350.1.13.10 it y of [facility] 4.2.7.2.686 Eladio as [id number] [facility] 103 Branch 2021-10-07 2021-10-07 Anesthesia Johanny Martel 1.2.840.114 [id number] Univers 11:39:00 15:55:00 Event Chanel Fabian ISRAEL 350.1.13.10 ity of [facility] 4.2.7.2.686 Eladio as [id number] [facility] 103 Branch 2021-10-06 2021-10-06 Orders Doctor JARAD 1.2.840.114 [id number] Univers 00:00:00 00:00:00 Only Unassigned, ISRAEL 350.1.13.10 ity of [place] [facility] 4.2.7.2.686 Eladio as [id number] [facility] 009 Branch 2021-10-05 2021-10-05 Travel 1.2.840.1 1.2.912.255 [id number] Univers 00:00:00 00:00:00 75643.1.1 350.1.13.10 ity of 3.104.2.7 4[place].3.698 [place] .3.061387 084.8 Medica l .8 Branch 2021-10-04 2021-10-04 Transition Jerod, 1.2.840.4 [id number] Univers 00:00:00 00:00:00 of Care Erma M 85250.1.1 ity of 3.104.2.7 [place] .3.564203 Medica l .8 [place] 2021-10-04 2021-10-04 Patient Cruz, 1.2.840.3 [id number] Univers 00:00:00 00:00:00 Secure Msg Matias 18511.1.1 i ty of 3.104.2.7 [place] .3.360656 Medica l .8 [place] 2021-09-27 2021-10-02 Inpatient X [facility], [facility] FEATHER WASHER [id number] Univers 20:32:00 05:30:00 MATIAS ity of [facility] 2021-09-27 2021-10-02 Inpatient X [facility], [facility] FEATHER WASHER [id number] Univers 20:32:00 05:30:00 MATIAS ity [facility] 2021-09-27 2021-10-02 Hospital Cruz, 1.2.840.8 [id number] Univers 20:32:00 05:30:00 Encounter Matias 22784.1.1 it y of 3.104.2.7 [place] .3.783764 Medica l .8 [place] 2021-09-27 2021-09-27 Travel 1.2.840.1 1.2.121.304 [id number] Univers 00:00:00 00:00:00 66517.1.1 350.1.13.10 ity of 3.104.2.7 4.2.7.3.698 [place] .3.009448 084.8 Medica l .8 [place] 2021-09-14 2021-09-14 Outpatient Chaparro [facility] [id number] Univers 14:00:00 14:00:00 [facility] ity [facility] 2021-09-14 2021-09-14 Outpatient [facility] [id number] Univers 14:00:00 14:00:00 [facility] ity [facility] 2021-09-14 2021-09-14 Patient Doctor 1.2.840.5 [id number] Univers 00:00:00 00:00:00 Secure Msg Unassigned, 93725.1.1 ity of [place] 3.104.2.7 [place] .3.822522 Medica l .8 [place] 2021-09-04 2021-09-04 Orders Doctor 1.2.840.3 [id number] Univers 00:00:00 00:00:00 Only Unassigned, 69122.1.1 ity of [place] 3.104.2.7 [place] .3.393689 Medica l .8 [place] 2021-08-27 2021-08-27 Transition Richard, 1.2.840.0 [id number] Univers 00:00:00 00:00:00 of Care Sandi 13884.1.1 i ty of 3.104.2.7 [place] .3.313938 Medica l .8 [place] 2021-08-24 2021-08-26 Inpatient X [facility] [id number] Univers 03:17:00 15:30:00 MATIAS ity [facility] 2021-08-24 2021-08-26 Inpatient X [facility] [id number] Univers 03:17:00 15:30:00 MATIAS ity [facility] 2021-08-24 2021-08-26 [facility], 1.2.840.4 [id number] Univers 03:17:00 15:30:00 Encounter Matias 17249.1.1 it y of [place] 3.104.2.7 [place] .3.315571 Medica l .8 [place] 2021-08-24 2021-08-24 Travel 1.2.840.1 1.2.373.958 [id number] Univers 00:00:00 00:00:00 79415.1.1 350.1.13.10 ity of 3.104.2.7 4.2.7.3.698 [place] .3.618131 084.8 Medica l .8 [place] 2021-05-04 2021-05-05 Emergency EM [place], [facility].01 [id number] [facility] 01:14:00 14:01:00 [facility] 2021-03-02 2021-03-02 Emergency X [facility] ERT [id number] Univers 22:11:00 22:41:00 ity [facility] 2020-08-25 2020-08-26 Outpatient E [facility] [id number] Memoria 02:37:00 18:00:00 DEBRA Oleary [facility] l 2020-07-06 2020-07-06 Patient Chaot [facility] 1.2.840.114 [id number] Univers 00:00:00 00:00:00 Outreach Bird PRIMARY 350.1.13.10 i ty [facility] [place] [id number] [address] 2019-07-13 2019-07-13 Nurse JARAD Douglas 1.2.840.114 [id number] Univers 00:00:00 00:00:00 Triage Aracelis WOOD 350.1.13.10 it y of [place] [address].2.7.2.686 Eladio as [phone] [address] 2019-07-13 2019-07-13 JARAD Santamaria 1.2.840.114 [id number] Univers 00:00:00 00:00:00 Triage Melinda WOOD 350.1.13.10 i ty [place] [address].7.2.686 [place] [id number] [address] 2019-07-13 2019-07-13 JARAD Ballesteros 1.2.840.114 [id number] 00:00:00 00:00:00 Triage Aracelis WOOD [address]1.13.[address]686 [id number] 019 2019-07-13 2019-07-13 JARAD Santamaria 1.2.840.114 [id number] 00:00:00 00:00:00 Triage Melinda CHAUDHARIY [address].1.13.[address]686 [id number] 019 2018-12-31 2019-01-01 [facility] JARAD [place] 1.2.724.755 [id number] Univers 21:55:55 14:19:00 Encounter Jesse WOOD 350.1.13.10 ity of [place].2.[place] [id number] [facility] 070 [place] 2018-12-31 2019-01-01 [facility] JARAD [place] 1.2.852.579 [id number] 21:55:55 14:19:00 Encounter Jesse WOOD 350.1.13.10 [place] 4.2.7.2.686 [id number] [facility] 2018-12-31 2018-12-31 [facility] 1.2 .840.114 [id number] [facility] 15:10:27 15:53:28 Visit Allie Miller LIQUOR TESTER 350.1.13. 10 ity of REGIONAL 4.2.7.2.686 Eladio as MATERNAL [id number] Med ical & CHILD [address] [place] [address] 2018-12-31 2018-12-31 Nurse Visit, [facility] 1.2.840.114 [id number] 15:10:27 15:53:28 Visit Jerel LIQUOR TESTER 350.1.13.10 Nurse REGIONAL 4.2.7.2.686 MATERNAL [id number] & CHILD [address] [place] [address] 2018-12-31 2018-12-31 Telephone AMANDA Barnard 1.2.840.114 [id number] [facility] 00:00:00 00:00:00 Louis Guadalupe LIQUOR TESTER 350.1.13.10 it y of REGIONAL 4.2.7.2.686 [place]io as MATERNAL [phone] Med ical & CHILD [address] [place] [address] 2018-12-31 2018-12-31 Telephone JARAD Upton 1.2.840.114 [id number] Univers 00:00:00 00:00:00 Gilson WOOD 350.1.13.10 i ty of [facility] 4.2.7.2.686 Eladio as [id number] [facility] 013 [place] 2018-12-31 2018-12-31 Telephone Roger ORBARNEY 1.2.840.114 [id number] 00:00:00 00:00:00 Louis Guadalupe LIQUOR TESTER 350.1.13.10 REGIONAL 4.2.7.2.686 MATERNAL [id number] & CHILD 107 [facility] 2018-12-31 2018-12-31 Telephone WonJARAD 1.2.840.114 [id number] 00:00:00 00:00:00 Gilson WOOD 350.1.13.[address] [facility] 4.2.7.2.686 [id number] 2018-12-28 2018-12-29 Emergency [facility] 1.2.994.786 [id number] [facility] 19:29:15 00:59:00 Alla Lopez 350.1.13.10 ity of [place] 4.2.7.2.686 [place] [id number] [address] 2018-12-28 2018-12-29 Emergency [facility], [facility] 1.2.849.538 [id number] 19:29:15 00:59:00 Alla [place] 350.1.13.10 [place] 4.2.7.2.686 [place] [id number] [facility] 2018-12-28 2018-12-28 Nurse Visit, [facility] Nurse [facility] 1.2 .840.114 [id number] [facility] 12:55:55 13:47:08 Visit Max Velarde LIQUOR TESTER 350.1.13.10 ity of [facility] 4.2.7.2.686 Eladio as MATERNAL [id number] Med ical & CHILD [address] [place] [address] 2018-12-28 2018-12-28 Nurse Visit, [facility] 1.2.840.114 [id number] 12:55:55 13:47:08 Visit [facility] LIQUOR TESTER 350.1.13.10 Nurse [facility] 4.2.7.2.686 MATERNAL [id number] & CHILD 107 [facility] 2018-12-20 2018-12-24 [facility] JARAD Lizama 1.2.840.114 [id number] Univers 18:42:00 13:40:00 Encounter Ree WOOD 350.1.13.10 ity of [place] [id number] [address] 2018-12-20 2018-12-24 [facility] JARAD Lizama 1.2.840.114 [id number] 18:42:00 13:40:00 Encounter Ree WOOD 350.1.13.10 [place] 4.2.7.2.686 [id number] 2018-12-20 2018-12-20 [employer]person [employer] Ultrasound, [facility] 1.2 .840.114 [id number] [facility] 11:12:37 11:42:37 Visit Mila Ferguson LIQUOR TESTER [id number] ity of [place] REGIONAL 4.2.7.2.686 [place] MATERNAL [phone] Med ical & CHILD 369 [facility] 2018-12-20 2018-12-20 [employer] Ultrasound, [facility] 1.2.840.114 [id number] 11:12:37 11:42:37 Visit Ang-Mfm LIQUOR TESTER 350.1.13.10 REGIONAL 4.2.7.2.686 MATERNAL [phone] & CHILD 369 [facility] 2018-12-20 2018-12-20 Routine Risk, Mmg-Zqrbi-Sq/High [facility] 1. 2.840.114 [id number] [facility] 10:20:16 11:05:03 Mila Ferguson LIQUOR TESTER 350.1.13.10 ity of Visit REGIONAL 4.2.7.2.686 [place] as MATERNAL [phone] Med ical & CHILD 107 [facility] 2018-12-20 2018-12-20 Routine Risk, [facility] 1.2.840.114 [id number] 10:20:16 11:05:03 Ang-Rmchp-N LIQUOR TESTER 350.1.13.10 Visit p/High REGIONAL 4.2.7.2.686 MATERNAL [id number] & CHILD 107 [facility] 2018-12-18 2018-12-18 Routine [place], [facility] 1.2.840.114 [id number] Univers 12:50:29 14:00:55 Roshunda R LIQUOR TESTER 350.1.13.10 ity of Visit REGIONAL 4.2.7.2.686 Eladio as MATERNAL [phone] Med ical & CHILD 107 [facility] 2018-12-18 2018-12-18 Routine Syd [facility] 1.2.840.114 [id number] 15 12:50:29 14:00:55 Roshunda R LIQUOR TESTER 350.1.13.10 Visit REGIONAL 4.2.7.2.686 MATERNAL [phone] & CHILD 107 [facility] 2018-12-13 2018-12-13 Routine De [place], [facility] Resident UNIVERSIT 1.2.8 40.114 [id number] Univers 13:28:19 14:24:11 Inga Moore Y HEALTH 350.1. 13.10 [facility] 4.2.7.2.686 Chacorta Barton [phone] [address] 2018-12-13 2018-12-13 Routine De [place], [facility] UNIVERSIT 1.2.840.114 [id number] 13:28:19 14:24:11 Resident Y HEALTH 350.1.13.10 Visit [facility] 4.2.7.2.686 [id number] 113 2018-12-13 2018-12-13 Salesperson [employer] 2, [facility] Room UNIVERSIT 1 .2.840.114 [id number] [facility] 12:48:28 13:23:20 Visit Inga Moore HEALTH 350.1.1 3.10 ity of Jesse Woods [facility] 4.2.7.2.686 [place] [phone] [facility] [address] 2018-12-13 2018-12-13 Salesperson [employer] 2, [facility] UNIVERSIT 1.2.840.11 [id number] 12:48:28 13:23:20 Visit [facility] Room Y HEALTH 350.1.13.10 CLINICS 4.2.7.2.686 [id number] [facility] 2018-12-13 2018-12-13 Orders Doctor JARAD 1.2.840.114 [id number] Univers 00:00:00 00:00:00 Only Unassigned, [place] 350.1.13.10 ity of [place] [facility] 4.2.7.2.686 Eladio as [phone] [facility] [address] 2018-12-13 2018-12-13 Orders Doctor JARAD 1.2.840.114 [id number] 00:00:00 00:00:00 Only Unassigned, [place] 350.1.13.10 [place] [address]686 [phone] 009 2018-12-11 2018-12-11 Case JARAD Chris 1.2.840.114 [id number] [facility] 00:00:00 00:00:00 Management Ruba ISRAEL 350.1.13.10 ity of HOSPITAL [facility]..2.686 Eladio as [phone] [facility] [address] [place] 2018-12-11 2018-12-11 Case JARAD Chris 1.2.840.114 [id number] 00:00:00 00:00:00 Management Ruba [place] 350.1.13.10 [place] [address].7.2.686 [id number] 013 2018-12-10 2018-12-10 Routine Faculty, [facility] 1.2 .840.114 [id number] [facility] 10:35:35 11:46:44 Jesse Woods LIQUOR TESTER 350.1.13.10 ity of Visit [facility] 4.2.7.2.686 Eladio as MATERNAL [phone] [facility] ical & CHILD [address] [place] [address] 2018-12-10 2018-12-10 Routine Faculty, [facility] 1.2.840.114 [id number] 10:35:35 11:46:44 [facility] LIQUOR TESTER 350.1.13.10 Visit [facility] 4.2.7.2.686 MATERNAL [phone] & CHILD [address] [place] [address] 2018-12-06 2018-12-06 Salesperson [employer] Ultrasound, [facility] 1.2 .840.114 [id number] [facility] 11:40:06 12:10:06 Visit Marycruz Quevedo LIQUOR TESTER 350.1.13.10 ity of [facility] 4.2.7.2.686 Eladio as MATERNAL [phone] [facility] ical & CHILD 369 [facility] 2018-12-06 2018-12-06 Salesperson [employer] Ultrasound, [facility] 1.2.840.114 [id number] 11:40:06 12:10:06 Visit Ang-Mfm LIQUOR TESTER 350.1.13.10 REGIONAL 4.2.7.2.686 MATERNAL [phone] & CHILD 369 [facility] 2018-12-06 2018-12-06 Routine Risk, Btr-Unxkz-Rn/High [facility] 1. 2.840.114 [id number] [facility] 10:02:15 11:39:46 Marycruz Quevedo LIQUOR TESTER 350.1.13.10 ity of Visit REGIONAL 4.2.7.2.686 Eladio as MATERNAL [phone] Med ical & CHILD [address] [place] [address] 2018-12-06 2018-12-06 Routine Risk, [facility] 1.2.840.114 [id number] 10:02:15 11:39:46 Ang-Rmchp-N LIQUOR TESTER 350.1.13.10 Visit p/High REGIONAL 4.2.7.2.686 MATERNAL [phone] & CHILD [address] [place] [address] 2018-12-03 2018-12-03 [facility] Lorrie Olmos [facility] 1.2.840.114 [id number] [facility] 13:57:00 16:45:00 Encounter Cam [place] 350.1.13.10 ity of [place] 4.2.7.2.686 [facility] [id number] [address] 2018-12-03 2018-12-03 [facility] Lorrie Olmos [facility] 1.2.840.114 [id number] 13:57:00 16:45:00 Encounter Cam [place] 350.1.13.10 [place] 4.2.7.2.686 [place] [id number] [facility] 2018-12-03 2018-12-03 Routine Faculty, Ad Beachchjayesh Woody [facility] 1.2 .840.114 [id number] [facility] 09:27:42 10:36:46 Kyle Cordero LIQUOR TESTER 350.1.13. 10 ity of Visit REGIONAL 4.2.7.2.686 Eladio as MATERNAL [id number] [facility] ical & CHILD [address] [place] [address] 2018-12-03 2018-12-03 Routine Faculty, [facility] 1.2.840.114 [id number] 09:27:42 10:36:46 Ang Rmchp LIQUOR TESTER 350.1.13.10 Visit [facility] 4.2.7.2.686 MATERNAL [phone] & CHILD 107 [facility] 2018-11-29 2018-11-29 Routine Risk, Usn-Omvew-Qd/High [facility] 1. 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, [facility] 1.2 .840.114 [id number] Univers 11:09:01 11:48:17 Visit Calvin Patel LIQUOR TESTER 350.1.13.10 ity of REGIONAL 4.2.7.2.686 Eladio as MATERNAL [id number] [facility] & CHILD 369 [facility] 2018-11-26 2018-11-26 Routine Faculty, Ad Rmchp [facility] 1.2 .840.114 [id number] Univers 10:07:03 11:06:11 Inga Moore LIQUOR TESTER 350.1.1 3.10 ity of Visit REGIONAL 4.2.7.2.686 Eladio as MATERNAL [phone] [facility] ical & CHILD [address] [place] [address] 2018-11-22 2018-11-22 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 [employer] 5, [facility] Room UNIVERSIT 1 .2.840.114 [id number] Univers 10:44:00 11:48:35 Visit Inga Moore [facility] 350.1.1 3.10 ity of Alison Reis [facility] 4.2.7.2.686 [place] [id number] [facility] [address] [place] 2018-11-22 2018-11-22 Routine Roger [facility] 1.2.042.254 [id number] Univers 08:04:45 09:05:49 Louis Guadalupe LIQUOR TESTER 350.1.13.10 i ty of Visit REGIONAL 4.2.7.2.686 Eladio as MATERNAL [phone] [facility] ical & CHILD [address] [place] [address] 2018-11-19 2018-11-19 [facility] Lorrie Olmos [facility] 1.2.840.114 [id number] [facility] 12:24:36 16:05:00 Encounter Damien [place] 350.1.13.10 ity of [place] 4.2.7.2.686 [facility] [phone] [facility] [address] [place] 2018-11-19 2018-11-19 Routine Faculty, Ad Samson [facility] 1.2 .840.114 [id number] [facility] 09:18:45 10:07:14 Alison Ries LIQUOR TESTER 350.1.13.10 ity of Visit REGIONAL 4.2.7.2.686 Eladio as MATERNAL [id number] [facility] ical & CHILD [address] [place] [address] 2018-11-15 2018-11-15 Routine Faculty, Ad Beachjayesh [facility] 1.2 .840.114 [id number] [facility] 13:56:25 15:11:31 Modesto De La Rosa LIQUOR TESTER 350.1.13.10 ity of Visit REGIONAL 4.2.7.2.686 Eladio as MATERNAL [phone] [facility] ical & CHILD [address] [place] [address] 2018-11-14 2018-11-14 Salesperson [employer] [facility]tras[facility], [facility] 1.2 .840.114 [id number] [facility] 10:38:34 11:32:09 Visit Alison Reis LIQUOR TESTER 350.1.13.10 ity of REGIONAL 4.2.7.2.686 Eladio as MATERNAL [phone] [facility] ical & CHILD 369 [facility] 2018-11-12 2018-11-12 Routine Faculty, Ad [facility] 1.2 .840.114 [id number] Univers 10:38:07 12:09:10 Inga Moore LIQUOR TESTER 350.1.1 3.10 ity of Visit [facility] 4.2.7.2.686 Eladio as MATERNAL [phone] Med ical & CHILD 107 [facility] 2018-11-01 2018-11-01 Case ROSSY Woodall 1.2.175.599 [id number] [facility] 00:00:00 00:00:[address] [facility] 350.1.13.10 ity of CLINICS 4.2.7.2.686 Noé s [phone] [facility] [address] [place] Results Test Description Test Time Test Comments Results Result Comments Source SURGICAL PATHOLOGY EXAM 2021-10-12 16:25:43 Test Item Value Reference Range Interpretation Comme nts Case Report (test code = 7928503523) Surgical Pathology ?Case: [id number] ? Authorizing Provider: ?Florencio Lr MD ? Collected: ? 10/07/2021 1537 ?Ordering Location: ? ? [facility] OR ? Received: ?10/07/2021 1807 ? Department ? Pathologist: ? Catherine Moore, ? MD ? Specimen: ? ?UTERINE BODY W/OVARY AND FALLOPIAN TUBE, LEFT, Left ovary ? Final Diagnosis (test code = j1yiwRRkKHHkq0etBBAgiPStCsLcHiLaUwGaGl pc [id number]) dWMxIHtccnRmMVxlcGljOTYwMlxhbnNpXHNwbHRw N4YwciajQVbjSH9rQQ6igUfklXUlwYUgVDMhNeZc a4ups208tKNrz2rwDFEBxmcaeCz3iHecN92yz9M4 DtfcW65haSDdEVI3QIGtKEMpiCUnBADfHYZ0JLKz nSGqH1ugVWSxKF3zokeoZHnjFTfrEZWbiYT8EIDt bJOjZ1RiEKSjTWcrCNKhueq0XhXbIh7pxUIbxYei MFxwYXJkXHBsYWluXGZzMjBccGFyIEEuIFVURVJV UywgQklMQVRFUkFMIEZBTExPUElBTiBUVUJFUywg TCWIPTCPMeDUEDseAPmCXZRMQKRWZ48XSRKVGNhW DEAOWYzxQ2HQWRpIL0YQGS9TJMHALyQjBACWEAAT A0OCB4MVX2SEMJp2BQpsMHNbTSMrTV8rE6RUCiyQ XeAGL5CDSITNAlIMEY7WRYUNP37iS0eVFQIRIWOS YnHYEJ7VVVJEAUZCVuXNNFvUKGnNYpEOYXZJWAMt MFXkdzYfNHOaEITTPsAPHXNSCvzUQCooT3BLWoMZ U2NVYMNGKKEFXKipJDRjBQMtGR1nRSrHSYZVWijQ ZJorYLUTZe6BRG4FHLSvnKLfMKTjHXNuMSJMLLaN YIgMOnXXXTUJLbmeZMCCBPGKNfSVCHKUH6FbfTMz FJMlFSVpWBaRXhBdT0WWHct6MLJEV8DLJySFX2wB SUNMRVMgXHBhciAgICAgLSBJTlRSQUFSVEVSSUFM HEOFEx8CJPzOTMdYEzEBDQHUYefVDGOOTMKAFCeC NPKZPFWpuuuaQOPjYADsfc63QAA1SbNlz6O6ISRx YqQfNDItBN6gcHzmQWReDX8cWGPdC4mkdC8wjql1 YcGrIBIbFsZ0IZPlzlR5Lgx9GJNsWWcqm9xqy7Kp G1JplUNqtGq0o5pcHDBdFcZ0bGZfYMvqG4uqmaHd oOPtPDZzQKf7yVbxVwMdZVWdb5mwawHnXdZnSVZe FMWpPYEedGwayxg8fT93IYOtcH7szQBnNQezkxAa ZlS3JNnaFLKsNvH4TWDnoTLtEVLoP6ieUOSuGBei CRWjTOjvkNYyAMX0aYlil4E1wLUzzIWpcCnwSyRc QmOxRYYLc0QzISf9dTzbK7YbLOQdGgT4rTTmTBYs HVgsVDJkHBObjsB3oB23EXdqovK6zWBfj7Sjw82y b014mV4osRKjCCA7VZNfGPAyfGKlGUNoUBE1ODZv bNNxQ7oeTEQuZM3bdzfpTMbcOOgnBCNpaUG0XFEt kLItA6CoOAIuNBbuDDPxike5WwQwQn3awJMbbFim YGstw9rgt4jccEGnAbb0PYCnXqSvUzhyWLjfd5Un c1vzEMWulo2zYWU8uKInqKnol9B3vCJwGRFhcCTc jaJpUPTgRmQ8GNfeGH1dey21XMRwGVS3wd4vcOFv jDbynfThcORvXEqlY8ZyGQPpq248VIAcL4NnGIRx i2T9kfGbVzCkBVQupCP9jeK0BRZmGTc7vPVmzfQ1 lhOtoYSuW9gsoA2jNRTaSE5ymtxiz0weZRobEFum VSXmcHQ1rsF0MBKkfXCvS1XhbG5sHGOkRUvlAVFd raj7AlDeRe0iiTFvdOepYPkbEzwfCLgkLNRetbRx bnRccGduZGVjXHBsYWluXHBsYWluXGYwXGZzMjRc pZbflQtnqS8pCtJvAoJqHKhbPU7vMWJrE6smySRv HTEcGZTjO4xwHbJejE5hoDdbTTzuPuWvAwFuOHwr DGFlYNFgGDYtWTKcypDtbxAvjVqumpL4mOA1PWPd PXhgTNPwSJUpgOBecf9psUioLAYoDD6rVVUpalZb RTdolMjjHWiiLAV3OQTnlIPmfQSqmJTyHTGntFPm YLUtMZVpuTRrLEXoaDrzw3Bev9WwqWE0vO8hy3lt v9IiTGZvsLD8YD69nkP7vZ5zSUBzCH1oOAUyAD9k vFEltIXqHVLdj94aiSmqfqLwTBCsfjTxBTWlVGpc XGYyXGZzMjhcbGFuZzEwMzNcaGljaFxmMlxkYmNo XPOlIJvtK6nfTdUgKrWvCXmvRPD6gA== Clinical Information (test code = menorrhagia 7115204489) Gross Description (test code = z6jejRPnTOJycTJ5FeEwWZKsy6kuv0EvgFTf cGFy 0983374277) [file] K5NgkrD1JWMlof1= Disclaimer (test code = 0098441753) t5vosFNkJXFrl0hsPNTmmFXgJfRuDzR cZnRuYmpc vBTtYHfkqiZhKNpjy6XaS8VnBbVrKZyubyWcSRTx XuvszfzlUULqMAZ4cxNsLNAiBUjlSHBnAAmlVs1y yWYtcWioOmAmGZOgo9cjpbYKFPjjAxEgV973LFMf ASzvt3qpc8ShKDStrJDbn4A9NOLMqeastLq3qRou N18tv4K1OxlzR4mkEGOqRONrK9VzPT3qDKXpUnq0 EDZ1CXT8FMPeLYLkZ7UsNL3bETQxfQIoSUx7o0vb fJfkCWKqMPV5k7ocKTplppFrVI0ezk8rcHn7s2op bsPxJQFqQHZoqRHFOGPyF5BuwTxdNz7mlWn5fQhy CgbxQQP2Qtj8NL7uqq76eyz2fPyjHVFseviuIlK2 MZciTMEcseizECm3PEhxVYBrqAQ4OCDtvMPhG7Fp UBSdEQ0luxl4KQL2MHngOHMlLzX9BVNxgMAzUCAi eTybABzgz149NYV3VnOzNV3uE2Whp4Y1vW7afGWq VWXqsKHtKqZaOOXzof1fxGYzHKrus4NeTIM4uuT6 fZPhiFVzTYKnZZ44Egkim4RbJakxa1EpJ74qyYN2 BUqzx1yaKI4uDmW7zgTiRGlaz6ubuS3vPeE4IGky RI3vEM5uEBMqaD5hgeuxTRZmKtGyblwfRWJsqBen fmYwPk1hvItcGCX4IPisH6ulyZ9iEqE3XJzrP6go lN3iRDw3NTpbpIL1UZQcnJ9qYT5lsgyjr2efYXxi AOenEJWdyuO1jyZ3GYTkkCUiT8GfaE5wCQXbVB4h gbbup2zkYIF0YKoeYVSaKBN2UqEeVEKbe9Bemhy4 SjLwd9SjfRNmCIgyJ18ih256RXLwkgRmS0ghaBKu jkrulRWuuegjXCrfhoJ3FJQpemAvi8TgXENcUDK1 GXogEFqxoLCiOCNvxTems9nlJ0OreLPvBNRcLEjj XGYxXGZzMjBcbGFuZzEwMzNcaGljaFxmMVxkYmNo [file] O7gdKwGrhF1taCrqRDdsGqAxQeEjGUqyPJS0fC== Embedded Images (test code = 7914595597) [facility] WITH [id number] 11:52:00 Test Item Value Reference Range Interpretation [...] RDW-SD (test code = 49.1 fL 39.0-49.9 01574-5) RDW-CV (test code = 17.5 % 12.0-15.5 H 788-0) PLT (test code = See_Comment L [Automated 777-3) message] The sy stem which generated this result transmitted reference range : 166 - 358 10*3/ ?L. The reference r susan was not used to interpret this result as normal/abnormal . MPV (test code = 10.3 fL 9.5-12.9 79659-2) NRBC/100 WBC (test See_Comment [Automat ed code = 0858522932) message] The system which generated this result transmitted reference range : 0.0 - 10.0 /100 WBCs. The refer ence range was not u sed to interpret th is result as normal/abnormal . NRBC x10^3 (test code <0.01 See_Comment [Auto mated = 0780290910) message] The s ystem which generated this result transmitted reference range : 10*3/?L. The reference range was not used to interpret this result as normal/abnormal . GRAN MAT (NEUT) % 63.9 % (test code = 770-8) IMM GRAN % (test code 0.20 % = 4573999504) LYMPH % (test code = 23.4 % 736-9) MONO % (test code = 9.6 % 5905-5) EOS % (test code = 2.5 % 713-8) BASO % (test code = 0.4 % 706-2) GRAN MAT x10^3(ANC) 3.28 10*3/uL 1.88-7.09 (test code = 9240299446) IMM GRAN x10^3 (test <0.03 0.00-0.06 code = 8716017821) LYMPH x10^3 (test code 1.20 10*3/uL 1.32-3.29 L = 731-0) MONO x10^3 (test code 0.49 10*3/uL 0.33-0.92 = 742-7) EOS x10^3 (test code = 0.13 10*3/uL 0.03-0.39 711-2) BASO x10^3 (test code <0.03 0.01-0.07 = 704-7) Lab Interpretation Abnormal (test code = 16736-6) [facility] WITHOUT [id number] 00:47:16 Test Item Value Reference Range Interpretation Comments WBC (test code = 6690-2) See_Comment [A utomated message] The system [employer]ones generated this result transmit ramana reference range : 4.30 - 11.10 10*3/?L. The reference range was not used to interpret this result as normal/abnormal . RBC (test code = 789-8) See_Comment L [Au tomated message] The system sones generated this result transmit ramana reference range [...] See_Comment L [Au tomated message] The system [facility] generated this result transmit ramana reference range : 166 - 358 10*3/?L. The reference range was not used to interpret this result as normal/abnormal . MPV (test code = 11.5 fL 9.5-12.9 08668-9) RDW-CV (test code = 16.1 % 12.0-15.5 H 788-0) RDW-SD (test code = 50.6 fL 39.0-49.9 H 71113-8) NRBC x10^3 (test code = <0.01 See_Comment [Au tomated message] 1873680688) The system [employer] generated this result transmit ramana reference range : 10*3/?L. The reference range was not used to interpret this result as normal/abnormal . NRBC/100 WBC (test code See_Comment [Au tomated message] = 4817272787) The system [facility] generated this result transmit ramana reference range : 0.0 - 10.0 /100 WBC s. The reference r susan was not used to interpret this result as normal/abnormal . IPF % (test code = 7761343973) Lab Interpretation (test Abnormal code = 88470-4) [facility] WITHOUT [id number] 00:47:16 Test Item Value Reference Range Interpretation Comments WBC (test code = 6690-2) See_Comment [A utomated message] The system [facility] generated this result transmit ramana reference range : 4.30 - 11.10 10*3/?L. The reference range was not used to interpret this result as normal/abnormal . RBC (test code = 789-8) See_Comment L [Au tomated message] The system [facility] generated this result transmit ramana [...] See_Comment L [Au tomated message] The system [facility] generated this result transmit ramana reference range : 166 - 358 10*3/?L. The reference range was not used to interpret this result as normal/abnormal . MPV (test code = 11.5 fL 9.5-12.9 24448-2) RDW-CV (test code = 16.1 % 12.0-15.5 H 788-0) RDW-SD (test code = 50.6 fL 39.0-49.9 H 55787-2) NRBC x10^3 (test code = <0.01 See_Comment [Au tomated message] 2681141332) The system [facility] generated this result transmit ramana reference range : 10*3/?L. The reference range was not used to interpret this result as normal/abnormal . NRBC/100 WBC (test code See_Comment [Au tomated message] = 2522576992) The system [facility] generated this result transmit ramana reference range : 0.0 - 10.0 /100 WBC s. The reference r susan was not used to interpret this result as normal/abnormal . IPF % (test code = 3456139742) Lab Interpretation (test Abnormal code = 27952-8) [facility]-10-11 00:18:05 Test Item Value Reference Range Interpretation Comments PH (test code = 2) 7.35-7.45 PCO2 (test code = See_Comment [Automate d message] 4337579807) The system [employer] generated this result transmit ramana reference range : 35 - 45 mmHg. The reference range was not used to interpret this result as normal/abnormal . PO2 (test code = See_Comment H [Automated message] 3769083123) The system [employer] h generated this result transmit ramana reference range : 80 - 100 mmHg. The reference range was not used to interpret this result as normal/abnormal . HCO3 (test code = See_Comment L [Automate d message] 9901316255) The system [employer] generated this result transmit ramana reference range : 22 - 26 mEq/L. The reference range was not used to interpret this result as normal/abnormal . BE (test code = See_Comment L [Automated message] 8631790786) The system [employer] generated this result transmit ramana reference range : -3.0 - 3.0 mEq/ L. The reference r susan was not used to interpret this result as normal/abnormal . THB (test code = 5.6 g/dL 12.0-16.0 LL 5112541714) %O2HB (test code = 97.8 % 94.0-99.0 3142454510) %COHB ART (test code = 0.8 % 0.0-1.5 8021232042) %METHB ART (test code = 0.8 % 0.4-1.5 0651978486) VOL%O2 ART (test code = 9.2 % 15.0-23.0 L QUES 3097969816) NA (test code = 132 mmol/L 135-145 L 1501645411) K+ (test code = 4.3 mmol/L 3.5-5.0 9179123328) AC CA IONZ (test code = 6.60 mg/dL 4.50-5.30 HH 1366161192) GLUCOSE (test code = 150 mg/dL 70-110 H 3635929801) Lab Interpretation Abnormal (test code = 15473-2) [facility]U+CA2+2021-10-11 00:18:05 Test Item Value Reference Range Interpretation Comments PH (test code = 2) 7.35-7.45 PCO2 (test code = See_Comment [Automate d message] 3773213480) The system [employer] generated this result transmit ramana reference range : 35 - 45 mmHg. The reference range was not used to interpret this result as normal/abnormal . PO2 (test code = See_Comment H [Automated message] 8308948672) The system [employer] generated this result transmit ramana reference range : 80 - 100 mmHg. The reference range was not used to interpret this result as normal/abnormal . HCO3 (test code = See_Comment L [Automate d message] 2916093552) The system [employer] generated this result transmit ramana reference range : 22 - 26 mEq/L. The reference range was not used to interpret this result as normal/abnormal . BE (test code = See_Comment L [Automated message] 7500760418) The system [employer] generated this result transmit ramana reference range : -3.0 - 3.0 mEq/ L. The reference r susan was not used to interpret this result as normal/abnormal . THB (test code = 5.6 g/dL 12.0-16.0 LL [id number]) %O2HB (test code = 97.8 % 94.0-99.0 5572303417) %COHB ART (test code = 0.8 % 0.0-1.5 8157320116) %METHB ART (test code = 0.8 % 0.4-1.5 9135957769) VOL%O2 ART (test code = 9.2 % 15.0-23.0 L [facility] [id number]) NA (test code = 132 mmol/L 135-145 L 4847369037) K+ (test code = 4.3 mmol/L 3.5-5.0 9108675826) AC CA IONZ (test code = 6.60 mg/dL 4.50-5.30 4518306691) GLUCOSE (test code = 150 mg/dL 70-110 H [id number]) Lab Interpretation Abnormal (test code = 58829-6) [facility]:17:20 Test Item Value Reference Range Interpretation Comments PH (test code = 2) 7.35-7.45 PCO2 (test code = See_Comment [Automate d message] [id number]) The system [employer] generated this result transmit ramana reference range : 35 - 45 mmHg. The reference range was not used to interpret this result as normal/abnormal . PO2 (test code = See_Comment H [Automated message] [id number]) The system [employer] generated this result transmit ramana reference range : 80 - 100 mmHg. The reference range was not used to interpret this result as normal/abnormal . HCO3 (test code = See_Comment [Automate d message] [id number]) The system [employer] generated this result transmit ramana reference range : 22 - 26 mEq/L. The reference range was not used to interpret this result as normal/abnormal . BE (test code = See_Comment L [Automated message] [id number]) The system [employer] generated this result transmit ramana reference range : -3.0 - 3.0 mEq/ L. The reference r susan was not used to interpret this result as normal/abnormal . THB (test code = 6.7 g/dL 12.0-16.0 LL 6304121608) %O2HB (test code = 97.9 % 94.0-99.0 3870572822) %COHB ART (test code = 0.8 % 0.0-1.5 1738193053) %METHB ART (test code = 0.4 % 0.4-1.5 4947252970) VOL%O2 ART (test code = 10.3 % 15.0-23.0 L QUES [id number]) NA (test code = 132 mmol/L 135-145 L 5100618570) K+ (test code = 4.1 mmol/L 3.5-5.0 6718699107) AC CA IONZ (test code = 4.40 mg/dL 4.50-5.30 L 7719237730) GLUCOSE (test code = 173 mg/dL 70-110 H 3795861256) Lab Interpretation Abnormal (test code = 14092-7) [facility]-11 00:17:20 Test Item Value Reference Range Interpretation Comments PH (test code = 2) 7.35-7.45 PCO2 (test code = See_Comment [Automate d message] [id number]) The system [employer] generated this result transmit ramana reference range : 35 - 45 mmHg. The reference range was not used to interpret this result as normal/abnormal . PO2 (test code = See_Comment H [Automated message] [id number]) The system [employer] generated this result transmit ramana reference range : 80 - 100 mmHg. The reference range was not used to interpret this result as normal/abnormal . HCO3 (test code = See_Comment [Automate d message] [id number]) The system [employer] generated this result transmit ramana reference range : 22 - 26 mEq/L. The reference range was not used to interpret this result as normal/abnormal . BE (test code = See_Comment L [Automated message] [id number]) The system sones generated this result transmit ramana reference range : -3.0 - 3.0 mEq/ L. The reference r susan was not used to interpret this result as normal/abnormal . THB (test code = 6.7 g/dL 12.0-16.0 LL 9795321155) %O2HB (test code = 97.9 % 94.0-99.0 8087641638) %COHB ART (test code = 0.8 % 0.0-1.5 4997312460) %METHB ART (test code = 0.4 % 0.4-1.5 7308777156) VOL%O2 ART (test code = 10.3 % 15.0-23.0 L QUES 9001288742) NA (test code = 132 mmol/L 135-145 L 3062695838) K+ (test code = 4.1 mmol/L 3.5-5.0 4603403643) AC CA IONZ (test code = 4.40 mg/dL 4.50-5.30 L 2283289062) GLUCOSE (test code = 173 mg/dL 70-110 H 9685776810) Lab Interpretation Abnormal (test code = 75876-5) [facility] 00:16:35 Test Item Value Reference Range Interpretation Comments PH (test code = 2) 7.35-7.45 PCO2 (test code = See_Comment L [Automate d message] 1592077357) The system sones generated this result transmit ramana reference range : 35 - 45 mmHg. The reference range was not used to interpret this result as normal/abnormal . PO2 (test code = See_Comment H [Automated message] 2981572866) The system [employer] generated this result transmit ramana reference range : 80 - 100 mmHg. The reference range was not used to interpret this result as normal/abnormal . HCO3 (test code = See_Comment L [Automate d message] 2190596984) The system [employer]ones generated this result transmit armana reference range : 22 - 26 mEq/L. The reference range was not used to interpret this result as normal/abnormal . BE (test code = See_Comment L [Automated message] 2648924438) The system [employer] generated this result transmit ramana reference range : -3.0 - 3.0 mEq/ L. The reference r susan was not used to interpret this result as normal/abnormal . THB (test code = 7.3 g/dL 12.0-16.0 LL 4791308727) %O2HB (test code = 98.0 % 94.0-99.0 1246490300) %COHB ART (test code = 0.7 % 0.0-1.5 3528693802) %METHB ART (test code = 0.3 % 0.4-1.5 L 6111438429) VOL%O2 ART (test code = 10.9 % 15.0-23.0 L QUES 0484831383) NA (test code = 133 mmol/L 135-145 L 0104776986) K+ (test code = 4.2 mmol/L 3.5-5.0 5449018852) AC CA IONZ (test code = 4.30 mg/dL 4.50-5.30 L 1380007543) GLUCOSE (test code = 161 mg/dL 70-110 H 3784391218) Lab Interpretation Abnormal (test code = 95270-9) [facility]-11 00:16:35 Test Item Value Reference Range Interpretation Comments PH (test code = 2) 7.35-7.45 PCO2 (test code = See_Comment L [Automate d message] 9707539483) The system [employer]ones generated this result transmit ramana reference range : 35 - 45 mmHg. The reference range was not used to interpret this result as normal/abnormal . PO2 (test code = See_Comment H [Automated message] 6168367568) The system [employer] generated this result transmit ramana reference range : 80 - 100 mmHg. The reference range was not used to interpret this result as normal/abnormal . HCO3 (test code = See_Comment L [Automate d message] 2351978828) The system [employer]ones generated this result transmit ramana reference range : 22 - 26 mEq/L. The reference range was not used to interpret this result as normal/abnormal . BE (test code = See_Comment L [Automated message] 8599649565) The system [employer] generated this result transmit ramana reference range : -3.0 - 3.0 mEq/ L. The reference r susan was not used to interpret this result as normal/abnormal . THB (test code = 7.3 g/dL 12.0-16.0 LL 6799689124) %O2HB (test code = 98.0 % 94.0-99.0 9954235535) %COHB ART (test code = 0.7 % 0.0-1.5 2520692260) %METHB ART (test code = 0.3 % 0.4-1.5 L 2343592050) VOL%O2 ART (test code = 10.9 % 15.0-23.0 L QUES 0178822547) NA (test code = 133 mmol/L 135-145 L 2600675333) K+ (test code = 4.2 mmol/L 3.5-5.0 7281150360) AC CA IONZ (test code = 4.30 mg/dL 4.50-5.30 L 0737755778) GLUCOSE (test code = 161 mg/dL 70-110 H 1677157364) Lab Interpretation Abnormal (test code = 61250-2) [facility]21-10-11 00:15:34 Test Item Value Reference Range Interpretation Comments PH (test code = 2) 7.35-7.45 PCO2 (test code = See_Comment L [Automate d message] 5427138683) The system sones generated this result transmit ramana reference range : 35 - 45 mmHg. The reference range was not used to interpret this result as normal/abnormal . PO2 (test code = See_Comment H [Automated message] 4726192410) The system [employer] generated this result transmit ramana reference range : 80 - 100 mmHg. The reference range was not used to interpret this result as normal/abnormal . HCO3 (test code = See_Comment L [Automate d message] 0441566382) The system [employer] generated this result transmit ramana reference range : 22 - 26 mEq/L. The reference range was not used to interpret this result as normal/abnormal . BE (test code = See_Comment [Automated message] 5491163810) The system [employer]ones generated this result transmit ramana reference range : -3.0 - 3.0 mEq/ L. The reference r susan was not used to interpret this result as normal/abnormal . THB (test code = 7.8 g/dL 12.0-16.0 LL 4000627562) %O2HB (test code = 98.1 % 94.0-99.0 5578525466) %COHB ART (test code = 0.9 % 0.0-1.5 0271522987) %METHB ART (test code = 0.2 % 0.4-1.5 L 4652453795) VOL%O2 ART (test code = 12.2 % 15.0-23.0 L QUES 8124477730) NA (test code = 133 mmol/L 135-145 L 7070593239) K+ (test code = 4.3 mmol/L 3.5-5.0 3392065826) AC CA IONZ (test code = 5.30 mg/dL 4.50-5.30 1369291032) GLUCOSE (test code = 111 mg/dL 70-110 H 5144445973) Lab Interpretation Abnormal (test code = 81464-5) [facility]CA2+[facility]21-10-11 00:15:34 Test Item Value Reference Range Interpretation Comments PH (test code = 2) 7.35-7.45 PCO2 (test code = See_Comment L [Automat ed message] 1544758213) The system sones generated this result transmit ramana reference range : 35 - 45 mmHg. The reference range was not used to interpret this result as normal/abnormal . PO2 (test code = See_Comment H [Automated message] 3457031015) The system [employer] generated this result transmit ramana reference range : 80 - 100 mmHg. The reference range was not used to interpret this result as normal/abnormal . HCO3 (test code = See_Comment L [Automate d message] 4894853380) The system [employer] generated this result transmit ramana reference range : 22 - 26 mEq/L. The reference range was not used to interpret this result as normal/abnormal . BE (test code = See_Comment [Automated message] 7910787643) The system [employer] generated this result transmit ramana reference range : -3.0 - 3.0 mEq/ L. The reference r susan was not used to interpret this result as normal/abnormal . THB (test code = 7.8 g/dL 12.0-16.0 LL 9200432059) %O2HB (test code = 98.1 % 94.0-99.0 8028539537) %COHB ART (test code = 0.9 % 0.0-1.5 1725101457) %METHB ART (test code = 0.2 % 0.4-1.5 L 2325955931) VOL%O2 ART (test code = 12.2 % 15.0-23.0 L QUES 5106262921) NA (test code = 133 mmol/L 135-145 L 4329722383) K+ (test code = 4.3 mmol/L 3.5-5.0 1312974832) AC CA IONZ (test code = 5.30 mg/dL 4.50-5.30 6760473383) GLUCOSE (test code = 111 mg/dL 70-110 H 4338563947) Lab Interpretation Abnormal (test code = 32217-6) [facility] (NA, K, CL, CO2, GLUCOSE, BUN, CREATININE, CA)2021-10-10 11:50:35 Test Item Value Reference Range Interpretation Comments NA (test code = 135 mmol/L 135-145 6335376118) K (test code = 3.6 mmol/L 3.5-5.0 8755286441) CL (test code = 105 mmol/L 98-108 8322600439) CO2 TOTAL (test code = 30 mmol/L 23-31 9343674109) AGAP (test code = <1 2-16 L 1744816529) BUN (test code = 3 mg/dL 7-23 L 6966467845) GLUCOSE (test code = 102 mg/dL 70-110 5327447385) CREATININE (test code = 0.50 mg/dL 0.50-1.04 0209300739) CALCIUM (test code = 8.1 mg/dL 8.6-10.6 L 0222154822) eGFR (test code = mL/min/1.73m2 8250180325) MICKY (test code = MICKY) Association of [...] tests). Lab Interpretation Abnormal (test code = 25809-1) [facility] METABOLIC PANEL (NA, K, CL, CO2, GLUCOSE, BUN, CREATININE, CA)2021-10-10 11:50:35 Test Item Value Reference Range Interpretation Comments NA (test code = 135 mmol/L 135-145 8899792884) K (test code = 3.6 mmol/L 3.5-5.0 0961343024) CL (test code = 105 mmol/L 98-108 9184923866) CO2 TOTAL (test code = 30 mmol/L 23-31 9097589885) AGAP (test code = <1 2-16 L 0299611417) BUN (test code = 3 mg/dL 7-23 L 1345582551) GLUCOSE (test code = 102 mg/dL 70-110 5920089631) CREATININE (test code = 0.50 mg/dL 0.50-1.04 6914368059) CALCIUM (test code = 8.1 mg/dL 8.6-10.6 L 3663760999) eGFR (test code = mL/min/1.73m2 9841408092) MICKY (test code = MICKY) Association of [...] tests). Lab Interpretation Abnormal (test code = 80984-8) [facility] 11:49:04 Test Item Value Reference Range Interpretation Comments MAGNESIUM (test code = 9661390614) 2.0 mg/dL 1.7-2.4 Lab Interpretation (test code = Normal 48693-6) [facility] 11:49:04 Test Item Value Reference Range Interpretation Comments PHOSPHORUS (test code = 9292353557) 3.4 mg/dL 2.5-5.0 Lab Interpretation (test code = Normal 77085-0) [facility] 11:49:04 Test Item Value Reference Range Interpretation Comments MAGNESIUM (test code = 6221463214) 2.0 mg/dL 1.7-2.4 Lab Interpretation (test code = Normal 59524-9) [facility] 11:49:04 Test Item Value Reference Range Interpretation Comments PHOSPHORUS (test code = 6663016527) 3.4 mg/dL 2.5-5.0 Lab Interpretation (test code = Normal 85959-0) [facility] WITHOUT [id number] 11:26:59 Test Item Value Reference Range Interpretation Comments WBC (test code = 6690-2) See_Comment [A utomated message] The system sones generated this result transmit ramana reference range : 4.30 - 11.10 10*3/?L. The reference range was not used to interpret this result as normal/abnormal . RBC (test code = 789-8) See_Comment L [Au tomated message] The system [employer] generated this result transmit ramana reference range [...] See_Comment L [Au tomated message] The system [facility] generated this result transmit ramana reference range : 166 - 358 10*3/?L. The reference range was not used to interpret this result as normal/abnormal . MPV (test code = 10.9 fL 9.5-12.9 01822-3) RDW-CV (test code = 16.4 % 12.0-15.5 H 788-0) RDW-SD (test code = 50.1 fL 39.0-49.9 H 03816-0) NRBC x10^3 (test code = <0.01 See_Comment [Au tomated message] 0281634423) The system [facility] generated this result transmit ramana reference range : 10*3/?L. The reference range was not used to interpret this result as normal/abnormal . NRBC/100 WBC (test code See_Comment [Au tomated message] = 0317044776) The system [facility] generated this result transmit ramana reference range : 0.0 - 10.0 /100 WBC s. The reference r susan was not used to interpret this result as normal/abnormal . IPF % (test code = 3949971264) Lab Interpretation (test Abnormal code = 59475-9) [facility] WITHOUT [id number] 11:26:59 Test Item Value Reference Range Interpretation Comments WBC (test code = 6690-2) See_Comment [A utomated message] The system [facility] generated this result transmit ramana reference range : 4.30 - 11.10 10*3/?L. The reference range was not used to interpret this result as normal/abnormal . RBC (test code = 789-8) See_Comment L [Au tomated message] The system [facility] generated this result transmit ramana [...] See_Comment L [Au tomated message] The system [facility] generated this result transmit ramana reference range : 166 - 358 10*3/?L. The reference range was not used to interpret this result as normal/abnormal . MPV (test code = 10.9 fL 9.5-12.9 64738-6) RDW-CV (test code = 16.4 % 12.0-15.5 H 788-0) RDW-SD (test code = 50.1 fL 39.0-49.9 H 33895-1) NRBC x10^3 (test code = <0.01 See_Comment [Au tomated message] 9752424408) The system [facility] generated this result transmit ramana reference range : 10*3/?L. The reference range was not used to interpret this result as normal/abnormal . NRBC/100 WBC (test code See_Comment [Au tomated message] = 8149842790) The system [facility] generated this result transmit ramana reference range : 0.0 - 10.0 /100 WBC s. The reference r susan was not used to interpret this result as normal/abnormal . IPF % (test code = 5125042748) Lab Interpretation (test Abnormal code = 72360-7) [facility] WITHOUT [id number] 00:02:03 Test Item Value Reference Range Interpretation Comments WBC (test code = 6690-2) See_Comment [A utomated message] The system [facility] generated this result transmit ramana reference range : 4.30 - 11.10 10*3/?L. The reference range was not used to interpret this result as normal/abnormal . RBC (test code = 789-8) See_Comment L [Au tomated message] The system [facility] generated this result transmit ramana [...] See_Comment L [Au tomated message] The system [facility] generated this result transmit ramana reference range : 166 - 358 10*3/?L. The reference range was not used to interpret this result as normal/abnormal . MPV (test code = 11.0 fL 9.5-12.9 65778-4) RDW-CV (test code = 15.9 % 12.0-15.5 H 788-0) RDW-SD (test code = 49.4 fL 39.0-49.9 50246-3) NRBC x10^3 (test code = See_Comment [Au tomated message] 1721379938) The system [facility] generated this result transmit ramana reference range : 10*3/?L. The reference range was not used to interpret this result as normal/abnormal . NRBC/100 WBC (test code See_Comment [Au tomated message] = 9649133977) The system [facility] generated this result transmit ramana reference range : 0.0 - 10.0 /100 WBC s. The reference r susan was not used to interpret this result as normal/abnormal . IPF % (test code = 8926095616) Lab Interpretation (test Abnormal code = 11444-7) [facility] WITHOUT [id number] 00:02:03 Test Item Value Reference Range Interpretation Comments WBC (test code = 6690-2) See_Comment [A utomated message] The system [facility] generated this result transmit ramana reference range : 4.30 - 11.10 10*3/?L. The reference range was not used to interpret this result as normal/abnormal . RBC (test code = 789-8) See_Comment L [Au tomated message] The system [facility] generated this result transmit ramana [...] See_Comment L [Au tomated message] The system [facility] generated this result transmit ramana reference range : 166 - 358 10*3/?L. The reference range was not used to interpret this result as normal/abnormal . MPV (test code = 11.0 fL 9.5-12.9 40004-7) RDW-CV (test code = 15.9 % 12.0-15.5 H 788-0) RDW-SD (test code = 49.4 fL 39.0-49.9 65232-0) NRBC x10^3 (test code = See_Comment [Au tomated message] 0450996586) The system [facility] generated this result transmit ramana reference range : 10*3/?L. The reference range was not used to interpret this result as normal/abnormal . NRBC/100 WBC (test code See_Comment [Au tomated message] = 0746033019) The system [facility] generated this result transmit ramana reference range : 0.0 - 10.0 /100 WBC s. The reference r susan was not used to interpret this result as normal/abnormal . IPF % (test code = 3482142990) Lab Interpretation (test Abnormal code = 15996-0) [facility] WITHOUT [id number] 16:52:03 Test Item Value Reference Range Interpretation Comments WBC (test code = 6690-2) See_Comment [A utomated message] The system [facility] generated this result transmit ramana reference range : 4.30 - 11.10 10*3/?L. The reference range was not used to interpret this result as normal/abnormal . RBC (test code = 789-8) See_Comment L [Au tomated message] The system [employer] generated this result transmit ramana reference range [...] See_Comment L [Au tomated message] The system [employer] generated this result transmit ramana reference range : 166 - 358 10*3/?L. The reference range was not used to interpret this result as normal/abnormal . MPV (test code = 10.4 fL 9.5-12.9 46513-2) RDW-CV (test code = 15.8 % 12.0-15.5 H 788-0) RDW-SD (test code = 47.8 fL 39.0-49.9 78376-5) NRBC x10^3 (test code = See_Comment [Au tomated message] 8597680086) The system [employer] generated this result transmit ramana reference range : 10*3/?L. The reference range was not used to interpret this result as normal/abnormal . NRBC/100 WBC (test code See_Comment [Au tomated message] = 3612063129) The system [facility] generated this result transmit ramana reference range : 0.0 - 10.0 /100 WBC s. The reference r susan was not used to interpret this result as normal/abnormal . IPF % (test code = 1921315025) Lab Interpretation (test Abnormal code = 72946-4) [facility] WITHOUT [id number] 16:52:03 Test Item Value Reference Range Interpretation Comments WBC (test code = 6690-2) See_Comment [A utomated message] The system [facility] generated this result transmit ramana reference range : 4.30 - 11.10 10*3/?L. The reference range was not used to interpret this result as normal/abnormal . RBC (test code = 789-8) See_Comment L [Au tomated message] The system [facility] generated this result transmit ramana [...] See_Comment L [Au tomated message] The system [facility] generated this result transmit ramana reference range : 166 - 358 10*3/?L. The reference range was not used to interpret this result as normal/abnormal . MPV (test code = 10.4 fL 9.5-12.9 40751-9) RDW-CV (test code = 15.8 % 12.0-15.5 H 788-0) RDW-SD (test code = 47.8 fL 39.0-49.9 87716-4) NRBC x10^3 (test code = See_Comment [Au tomated message] 2118866988) The system [facility] generated this result transmit ramana reference range : 10*3/?L. The reference range was not used to interpret this result as normal/abnormal . NRBC/100 WBC (test code See_Comment [Au tomated message] = 5515399109) The system [facility] generated this result transmit ramana reference range : 0.0 - 10.0 /100 WBC s. The reference r susan was not used to interpret this result as normal/abnormal . IPF % (test code = 6241267388) Lab Interpretation (test Abnormal code = 55606-6) [facility] Test Item Value Reference Range Interpretation Comments MAGNESIUM (test code = 3850727729) 1.6 mg/dL 1.7-2.4 L Lab Interpretation (test code = Abnormal 76546-0) [facility] 13:44:06 Test Item Value Reference Range Interpretation Comments PHOSPHORUS (test code = 4175546140) 3.0 mg/dL 2.5-5.0 Lab Interpretation (test code = Normal 03140-1) [facility]06 Test Item Value Reference Range Interpretation Comments MAGNESIUM (test code = 4229315844) 1.6 mg/dL 1.7-2.4 L Lab Interpretation (test code = Abnormal 09420-0) [facility] 13:44:06 Test Item Value Reference Range Interpretation Comments PHOSPHORUS (test code = 4896796124) 3.0 mg/dL 2.5-5.0 Lab Interpretation (test code = Normal 24712-7) [facility] Packed RBC (in units), 1 Units 2021-10-09 10:06:26 Test Item Value Reference Range Interpretation Comments Cross Match Result Compatible (test code = 4409) ISBT Blood Type Code (test code = 363905) Unit Blood Type (test A Pos code = 4410) Unit Number (test [id number] code = 4411) Blood Expiration Date & Time (test code = 052681) Status Information Issued (test code = 4412) Product Red Blood Cells Identification (test code = 4413) Product Code (test C6070U05 Performed at [facility] code = 4414) Laboratory Services - [facility] Blood [address] [place] [id number] Free: [phone] A No. [id number] [facility] Packed RBC (in units), 1 Units 2021-10-09 10:06:26 Test Item Value Reference Range Interpretation Comments Cross Match Result Compatible (test code = 4409) ISBT Blood Type Code (test code = 361959) Unit Blood Type (test A Pos code = 4410) Unit Number (test [id number] code = 4411) Blood Expiration Date & Time (test code = 060711) Status Information Issued (test code = 4412) Product Red Blood Cells Identification (test code = 4413) Product Code (test [id number] Performed at [facility] code = 4414) Laboratory Services - [facility] Blood [address] [address]Qhis Free: [phone] A No. [id number] [facility] METABOLIC PANEL (NA, K, CL, CO2, GLUCOSE, BUN, CREATININE, CA)2021-10-09 10:00:59 Test Item Value Reference Range Interpretation Comments NA (test code = 134 mmol/L 135-145 L 1840336150) K (test code = 3.9 mmol/L 3.5-5.0 4627752708) CL (test code = 106 mmol/L 98-108 3029731526) CO2 TOTAL (test code = 29 mmol/L 23-31 1412540723) AGAP (test code = <1 2-16 L 0151403571) BUN (test code = 7 mg/dL 7-23 4127589068) GLUCOSE (test code = 119 mg/dL 70-110 H 0744339814) CREATININE (test code = 0.49 mg/dL 0.50-1.04 L 7211816659) CALCIUM (test code = 7.5 mg/dL 8.6-10.6 L 2073562763) eGFR (test code = mL/min/1.73m2 7732354371) MICKY (test code = MICKY) Association of [...] tests). Lab Interpretation Abnormal (test code = 26165-5) [facility] METABOLIC PANEL (NA, K, CL, CO2, GLUCOSE, BUN, CREATININE, CA)2021-10-09 10:00:59 Test Item Value Reference Range Interpretation Comments NA (test code = 134 mmol/L 135-145 L 9107297575) K (test code = 3.9 mmol/L 3.5-5.0 9281372693) CL (test code = 106 mmol/L 98-108 9839625675) CO2 TOTAL (test code = 29 mmol/L 23-31 3419975087) AGAP (test code = <1 2-16 L 3227878912) BUN (test code = 7 mg/dL 7-23 7447116095) GLUCOSE (test code = 119 mg/dL 70-110 H 7060231738) CREATININE (test code = 0.49 mg/dL 0.50-1.04 L 3934875673) CALCIUM (test code = 7.5 mg/dL 8.6-10.6 L 5709394290) eGFR (test code = mL/min/1.73m2 1321383487) MICKY (test code = MICKY) Association of [...] tests). Lab Interpretation Abnormal (test code = 87772-7) [facility] WITHOUT [id number] 09:00:48 Test Item Value Reference Range Interpretation Comments WBC (test code = See_Comment [Automated message] 6690-2) The system [employer] generated this result transmitted ref erence range: 4.30 - 1 1.10 10*3/?L. The reference range was not used to int erpret this result as normal/abnormal . RBC (test code = 789-8) See_Comment L [Au tomated message] The system [employer] generated this result transmitted ref erence range: [...] See_Comment L [Au tomated message] The system [employer] generated this result transmitted ref erence range: 166 - 35 8 10*3/?L. The reference range was not used to int erpret this result as normal/abnormal . MPV (test code = 10.9 fL 9.5-12.9 47795-9) RDW-CV (test code = 16.3 % 12.0-15.5 H 788-0) RDW-SD (test code = 48.7 fL 39.0-49.9 11580-2) NRBC x10^3 (test code = <0.01 See_Comment [Au tomated message] 4875351930) The system [employer] generated this result transmitted ref erence range: 10*3/?L. The reference range was not used to int erpret this result as normal/abnormal . NRBC/100 WBC (test code See_Comment [Au tomated message] = 6136509685) The system [facility] generated this result transmitted ref erence range: 0.0 - 10 .0 /100 WBCs. The reference range was not used to int erpret this result as normal/abnormal . IPF % (test code = 3.6 % 1.3-7.7 Platelet count 6108541107) measured by fluorescence me thod. Lab Interpretation Abnormal (test code = 10357-1) [facility] WITHOUT [id number] 09:00:48 Test Item Value Reference Range Interpretation Comments WBC (test code = See_Comment [Automated message] 6690-2) The system [employer] generated this result transmitted ref erence range: 4.30 - 1 1.10 10*3/?L. The reference range was not used to int erpret this result as normal/abnormal . RBC (test code = 789-8) See_Comment L [Au tomated message] The system [employer] generated this result transmitted ref erence range: [...] See_Comment L [Au tomated message] The system [facility] generated this result transmitted ref erence range: 166 - 35 8 10*3/?L. The reference range was not used to int erpret this result as normal/abnormal . MPV (test code = 10.9 fL 9.5-12.9 53032-3) RDW-CV (test code = 16.3 % 12.0-15.5 H 788-0) RDW-SD (test code = 48.7 fL 39.0-49.9 20947-1) NRBC x10^3 (test code = <0.01 See_Comment [Au tomated message] 6693080021) The system [employer] generated this result transmitted ref erence range: 10*3/?L. The reference range was not used to int erpret this result as normal/abnormal . NRBC/100 WBC (test code See_Comment [Au tomated message] = 3927490778) The system [facility] generated this result transmitted ref erence range: 0.0 - 10 .0 /100 WBCs. The reference range was not used to int erpret this result as normal/abnormal . IPF % (test code = 3.6 % 1.3-7.7 Platelet count [id number]) measured by fluorescence me thod. Lab Interpretation Abnormal (test code = 14225-0) [facility] WITHOUT [id number] 01:42:07 Test Item Value Reference Range Interpretation Comments WBC (test code = See_Comment [Automated message] 6690-2) The system [employer] generated this result transmitted ref erence range: 4.30 - 1 1.10 10*3/?L. The reference range was not used to int erpret this result as normal/abnormal . RBC (test code = 789-8) See_Comment L [Au tomated message] The system [employer] generated this result transmitted ref erence range: [...] See_Comment L [Au tomated message] The system [employer] generated this result transmitted ref erence range: 166 - 35 8 10*3/?L. The reference range was not used to int erpret this result as normal/abnormal . MPV (test code = 10.6 fL 9.5-12.9 62568-2) RDW-CV (test code = 16.2 % 12.0-15.5 H 788-0) RDW-SD (test code = 48.3 fL 39.0-49.9 41463-6) NRBC x10^3 (test code = See_Comment [Au tomated message] 7467207392) The system [employer] generated this result transmitted ref erence range: 10*3/?L. The reference range was not used to int erpret this result as normal/abnormal . NRBC/100 WBC (test code See_Comment [Au tomated message] = 6337213732) The system [employer] generated this result transmitted ref erence range: 0.0 - 10 .0 /100 WBCs. The reference range was not used to int erpret this result as normal/abnormal . IPF % (test code = 3.3 % 1.3-7.7 Platelet count 7502997164) measured by fluorescence me thod. Lab Interpretation Abnormal (test code = 00584-0) [facility] WITHOUT [id number] 01:42:07 Test Item Value Reference Range Interpretation Comments WBC (test code = See_Comment [Automated message] 4613-2) The system [employer] generated this result transmitted ref erence range: 4.30 - 1 1.10 10*3/?L. The reference range was not used to int erpret this result as normal/abnormal . RBC (test code = 789-8) See_Comment L [Au tomated message] The system [employer] generated this result transmitted ref erence range: [...] See_Comment L [Au tomated message] The system [employer] generated this result transmitted ref erence range: 166 - 35 8 10*3/?L. The reference range was not used to int erpret this result as normal/abnormal . MPV (test code = 10.6 fL 9.5-12.9 18145-2) RDW-CV (test code = 16.2 % 12.0-15.5 H 788-0) RDW-SD (test code = 48.3 fL 39.0-49.9 14589-3) NRBC x10^3 (test code = See_Comment [Au tomated message] 2652368546) The system [employer] generated this result transmitted ref erence range: 10*3/?L. The reference range was not used to int erpret this result as normal/abnormal . NRBC/100 WBC (test code See_Comment [Au tomated message] = 0050717491) The system [facility] generated this result transmitted ref erence range: 0.0 - 10 .0 /100 WBCs. The reference range was not used to int erpret this result as normal/abnormal . IPF % (test code = 3.3 % 1.3-7.7 Platelet count 3990318120) measured by fluorescence me thod. Lab Interpretation Abnormal (test code = 03031-7) [facility] METABOLIC PANEL (NA, K, CL, CO2, GLUCOSE, BUN, CREATININE, CA)2021-10-09 01:19:05 Test Item Value Reference Range Interpretation Comments NA (test code = 135 mmol/L 135-145 7909179719) K (test code = 4.0 mmol/L 3.5-5.0 1392118231) CL (test code = 106 mmol/L 98-108 2651135334) CO2 TOTAL (test code = 27 mmol/L 23-31 1897599760) AGAP (test code = 2-16 9295054411) BUN (test code = 8 mg/dL 7-23 1955792512) GLUCOSE (test code = 98 mg/dL 70-110 5507692748) CREATININE (test code = 0.49 mg/dL 0.50-1.04 L 1172556168) CALCIUM (test code = 7.6 mg/dL 8.6-10.6 L 0562383434) eGFR (test code = mL/min/1.73m2 8485952542) MICKY (test code = MICKY) Association of [...] tests). Lab Interpretation Abnormal (test code = 74024-0) [facility] METABOLIC PANEL (NA, K, CL, CO2, GLUCOSE, BUN, CREATININE, CA)2021-10-09 01:19:05 Test Item Value Reference Range Interpretation Comments NA (test code = 135 mmol/L 135-145 3552096842) K (test code = 4.0 mmol/L 3.5-5.0 2777391563) CL (test code = 106 mmol/L 98-108 5782035214) CO2 TOTAL (test code = 27 mmol/L 23-31 7765460824) AGAP (test code = 2-16 1379233601) BUN (test code = 8 mg/dL 7-23 7644215273) GLUCOSE (test code = 98 mg/dL 70-110 7597105738) CREATININE (test code = 0.49 mg/dL 0.50-1.04 L 4919932057) CALCIUM (test code = 7.6 mg/dL 8.6-10.6 L 9775531274) eGFR (test code = mL/min/1.73m2 1470890700) MICKY (test code = MICKY) Association of [...] tests). Lab Interpretation Abnormal (test code = 31744-9) [facility] (NA, K, CL, CO2, GLUCOSE, BUN, CREATININE, CA)2021-10-08 16:28:34 Test Item Value Reference Range Interpretation Comments NA (test code = 134 mmol/L 135-145 L 8897219780) K (test code = 4.1 mmol/L 3.5-5.0 3312179519) CL (test code = 106 mmol/L 98-108 3204254191) CO2 TOTAL (test code = 26 mmol/L 23-31 0018815261) AGAP (test code = 2-16 6390007426) BUN (test code = 6 mg/dL 7-23 L 1056125111) GLUCOSE (test code = 124 mg/dL 70-110 H 0812862536) CREATININE (test code = 0.48 mg/dL 0.50-1.04 L 9780963795) CALCIUM (test code = 8.0 mg/dL 8.6-10.6 L 8822363820) eGFR (test code = mL/min/1.73m2 9838074217) MICKY (test code = MICKY) Association of [...] tests). Lab Interpretation Abnormal (test code = 39390-9) [facility] (NA, K, CL, CO2, GLUCOSE, BUN, CREATININE, CA)2021-10-08 16:28:34 Test Item Value Reference Range Interpretation Comments NA (test code = 134 mmol/L 135-145 L 4956225667) K (test code = 4.1 mmol/L 3.5-5.0 3296007991) CL (test code = 106 mmol/L 98-108 6613759036) CO2 TOTAL (test code = 26 mmol/L 23-31 8555458973) AGAP (test code = 2-16 7642098742) BUN (test code = 6 mg/dL 7-23 L 7199984502) GLUCOSE (test code = 124 mg/dL 70-110 H 2194632456) CREATININE (test code = 0.48 mg/dL 0.50-1.04 L 7233952828) CALCIUM (test code = 8.0 mg/dL 8.6-10.6 L 8762872268) eGFR (test code = mL/min/1.73m2 3806033590) MICKY (test code = MICKY) Association of [...] tests). Lab Interpretation Abnormal (test code = 86412-2) [facility] (NA, K, CL, CO2, GLUCOSE, BUN, CREATININE, CA)2021-10-08 16:28:34 Test Item Value Reference Range Interpretation Comments NA (test code = 134 mmol/L 135-145 L 2644723552) K (test code = 4.1 mmol/L 3.5-5.0 6883364330) CL (test code = 106 mmol/L 98-108 0470828554) CO2 TOTAL (test code = 26 mmol/L 23-31 0890387407) AGAP (test code = 2-16 7767141278) BUN (test code = 6 mg/dL 7-23 L 3197872398) GLUCOSE (test code = 124 mg/dL 70-110 H 5037134477) CREATININE (test code = 0.48 mg/dL 0.50-1.04 L 2922767448) CALCIUM (test code = 8.0 mg/dL 8.6-10.6 L 3578315196) eGFR (test code = mL/min/1.73m2 9925095059) MICKY (test code = MICKY) Association of [...] tests). Lab Interpretation Abnormal (test code = 32240-2) [facility] WITHOUT [id number] 16:00:11 Test Item Value Reference Range Interpretation Comments WBC (test code = See_Comment [Automated message] 6690-2) The system [employer] generated this result transmitted ref erence range: 4.30 - 1 1.10 10*3/?L. The reference range was not used to int erpret this result as normal/abnormal . RBC (test code = 789-8) See_Comment L [Au tomated message] The system [employer] generated this result transmitted ref erence range: [...] See_Comment L [Au tomated message] The system [employer] generated this result transmitted ref erence range: 166 - 35 8 10*3/?L. The reference range was not used to int erpret this result as normal/abnormal . MPV (test code = 10.6 fL 9.5-12.9 30753-1) RDW-CV (test code = 15.9 % 12.0-15.5 H 788-0) RDW-SD (test code = 47.8 fL 39.0-49.9 43146-6) NRBC x10^3 (test code = See_Comment [Au tomated message] 6471514495) The system [employer] generated this result transmitted ref erence range: 10*3/?L. The reference range was not used to int erpret this result as normal/abnormal . NRBC/100 WBC (test code See_Comment [Au tomated message] = 3085428962) The system [employer] generated this result transmitted ref erence range: 0.0 - 10 .0 /100 WBCs. The reference range was not used to int erpret this result as normal/abnormal . IPF % (test code = 6.3 % 1.3-7.7 Platelet count 7193629917) measured by fluorescence me thod. Lab Interpretation Abnormal (test code = 72055-0) [facility] WITHOUT [id number] 16:00:11 Test Item Value Reference Range Interpretation Comments WBC (test code = See_Comment [Automated message] 6690-2) The system [employer] generated this result transmitted ref erence range: 4.30 - 1 1.10 10*3/?L. The reference range was not used to int erpret this result as normal/abnormal . RBC (test code = 789-8) See_Comment L [Au tomated message] The system [employer] generated this result transmitted ref erence range: [...] See_Comment L [Au tomated message] The system [employer] generated this result transmitted ref erence range: 166 - 35 8 10*3/?L. The reference range was not used to int erpret this result as normal/abnormal . MPV (test code = 10.6 fL 9.5-12.9 91952-6) RDW-CV (test code = 15.9 % 12.0-15.5 H 788-0) RDW-SD (test code = 47.8 fL 39.0-49.9 62236-9) NRBC x10^3 (test code = See_Comment [Au tomated message] 4516104048) The system [employer] generated this result transmitted ref erence range: 10*3/?L. The reference range was not used to int erpret this result as normal/abnormal . NRBC/100 WBC (test code See_Comment [Au tomated message] = 7221938073) The system [employer] generated this result transmitted ref erence range: 0.0 - 10 .0 /100 WBCs. The reference range was not used to int erpret this result as normal/abnormal . IPF % (test code = 6.3 % 1.3-7.7 Platelet count 6417829569) measured by fluorescence me thod. Lab Interpretation Abnormal (test code = 30711-4) [facility] WITHOUT [id number] 16:00:11 Test Item Value Reference Range Interpretation Comments WBC (test code = See_Comment [Automated message] 6690-2) The system [employer] generated this result transmitted ref erence range: 4.30 - 1 1.10 10*3/?L. The reference range was not used to int erpret this result as normal/abnormal . RBC (test code = 789-8) See_Comment L [Au tomated message] The system [employer] generated this result transmitted ref erence range: [...] See_Comment L [Au tomated message] The system [employer] generated this result transmitted ref erence range: 166 - 35 8 10*3/?L. The reference range was not used to int erpret this result as normal/abnormal . MPV (test code = 10.6 fL 9.5-12.9 02604-7) RDW-CV (test code = 15.9 % 12.0-15.5 H 788-0) RDW-SD (test code = 47.8 fL 39.0-49.9 39154-8) NRBC x10^3 (test code = See_Comment [Au tomated message] 1121690708) The system [employer] generated this result transmitted ref erence range: 10*3/?L. The reference range was not used to int erpret this result as normal/abnormal . NRBC/100 WBC (test code See_Comment [Au tomated message] = 9347432322) The system [facility] generated this result transmitted ref erence range: 0.0 - 10 .0 /100 WBCs. The reference range was not used to int erpret this result as normal/abnormal . IPF % (test code = 6.3 % 1.3-7.7 Platelet count 2149719457) measured by fluorescence me thod. Lab Interpretation Abnormal (test code = 75997-9) [facility]-08 15:36:16 Test Item Value Reference Range Interpretation Comments HGB A1C (test code = 5.3 % 4.0-5.7 4548-4) MICKY (test code = MICKY) Reference RangesNormal: <5.7%Prediabetes: 5.7 - 6.4%Diabetes: > 6.5% Lab Interpretation (test Normal code = 81275-0) [facility]2021-10-08 15:36:16 Test Item Value Reference Range Interpretation Comments HGB A1C (test code = 5.3 % 4.0-5.7 4548-4) MICKY (test code = MICKY) Reference RangesNormal: <5.7%Prediabetes: 5.7 - 6.4%Diabetes: > 6.5% Lab Interpretation (test Normal code = 24807-6) [facility]2021-10-08 15:36:16 Test Item Value Reference Range Interpretation Comments HGB A1C (test code = 5.3 % 4.0-5.7 4548-4) MICKY (test code = MICKY) Reference RangesNormal: <5.7%Prediabetes: 5.7 - 6.4%Diabetes: > 6.5% Lab Interpretation (test Normal code = 34691-7) [facility] (NA, K, CL, CO2, GLUCOSE, BUN, CREATININE, CA)2021-10-08 13:25:28 Test Item Value Reference Range Interpretation Comments NA (test code = 135 mmol/L 135-145 4520166638) K (test code = 4.0 mmol/L 3.5-5.0 6739241658) CL (test code = 110 mmol/L 98-108 H 8728891497) CO2 TOTAL (test code = 23 mmol/L 23-31 1269956714) AGAP (test code = 2-16 9789480428) BUN (test code = 8 mg/dL 7-23 2995997698) GLUCOSE (test code = 98 mg/dL 70-110 8838355006) CREATININE (test code = 0.48 mg/dL 0.50-1.04 L 9097821259) CALCIUM (test code = 9.7 mg/dL 8.6-10.6 8639927870) eGFR (test code = mL/min/1.73m2 4875176419) MICKY (test code = MICKY) Association of [...] tests). Lab Interpretation Abnormal (test code = 76812-2) [facility] METABOLIC PANEL (NA, K, CL, CO2, GLUCOSE, BUN, CREATININE, CA)2021-10-08 13:25:28 Test Item Value Reference Range Interpretation Comments NA (test code = 135 mmol/L 135-145 4253199538) K (test code = 4.0 mmol/L 3.5-5.0 2111151098) CL (test code = 110 mmol/L 98-108 H 5147956177) CO2 TOTAL (test code = 23 mmol/L 23-31 5005071550) AGAP (test code = 2-16 1176100433) BUN (test code = 8 mg/dL 7-23 8743270791) GLUCOSE (test code = 98 mg/dL 70-110 2510917440) CREATININE (test code = 0.48 mg/dL 0.50-1.04 L 8326052401) CALCIUM (test code = 9.7 mg/dL 8.6-10.6 3801660677) eGFR (test code = mL/min/1.73m2 9779805118) MICKY (test code = MICKY) Association of [...] tests). Lab Interpretation Abnormal (test code = 87569-9) [facility] METABOLIC PANEL (NA, K, CL, CO2, GLUCOSE, BUN, CREATININE, CA)2021-10-08 13:25:28 Test Item Value Reference Range Interpretation Comments NA (test code = 135 mmol/L 135-145 0220240753) K (test code = 4.0 mmol/L 3.5-5.0 9307034912) CL (test code = 110 mmol/L 98-108 H 7933623349) CO2 TOTAL (test code = 23 mmol/L 23-31 4925860412) AGAP (test code = 2-16 6248045388) BUN (test code = 8 mg/dL 7-23 2712599834) GLUCOSE (test code = 98 mg/dL 70-110 9629646556) CREATININE (test code = 0.48 mg/dL 0.50-1.04 L 5945508233) CALCIUM (test code = 9.7 mg/dL 8.6-10.6 3436692912) eGFR (test code = mL/min/1.73m2 4426079221) MICKY (test code = MICKY) Association of [...] tests). Lab Interpretation Abnormal (test code = 46294-7) [facility] 13:19:15 Test Item Value Reference Range Interpretation Comments MAGNESIUM (test code = 7644603754) 1.4 mg/dL 1.7-2.4 L Lab Interpretation (test code = Abnormal 33785-6) [facility] 13:19:15 Test Item Value Reference Range Interpretation Comments PHOSPHORUS (test code = 1677993245) 4.3 mg/dL 2.5-5.0 Lab Interpretation (test code = Normal 86004-8) [facility] (51651[facility] (ALB,T.PRO,BILI T,BU/BC,ALT,AST,ALK PHOS)2021-10-08 13:19:15 Test Item Value Reference Range Interpretation Comments TOTAL BILI (test code = 9900142004) 1.5 mg/dL 0.1-1.1 H BILI UNCON (test code = 5795292767) 1.3 mg/dL 0.1-1.1 H BILI CONJ (test code = 6159739337) 0.0 mg/dL 0.0-0.3 T PROTEIN (test code = 8516692723) 4.9 g/dL 6.3-8.2 L ALBUMIN (test code = 5549469441) 2.7 g/dL 3.5-5.0 L ALK PHOS (test code = 4523732503) 46 U/L 34-122 ALTv (test code = 1742-6) 13 U/L 5-35 AST(SGOT) (test code = 0577485294) 24 U/L 13-40 Lab Interpretation (test code = Abnormal 59401-8) [facility] 13:19:15 Test Item Value Reference Range Interpretation Comments MAGNESIUM (test code = 7780635313) 1.4 mg/dL 1.7-2.4 L Lab Interpretation (test code = Abnormal 30250-6) [facility] 13:19:15 Test Item Value Reference Range Interpretation Comments PHOSPHORUS (test code = 6684724866) 4.3 mg/dL 2.5-5.0 Lab Interpretation (test code = Normal 67049-0) [facility] (54450[facility] (ALB,T.PRO,BILI T,BU/BC,ALT,AST,ALK PHOS)2021-10-08 13:19:15 Test Item Value Reference Range Interpretation Comments TOTAL BILI (test code = 9793436194) 1.5 mg/dL 0.1-1.1 H BILI UNCON (test code = 2447353091) 1.3 mg/dL 0.1-1.1 H BILI CONJ (test code = 7443267732) 0.0 mg/dL 0.0-0.3 T PROTEIN (test code = 2706362415) 4.9 g/dL 6.3-8.2 L ALBUMIN (test code = 6370685880) 2.7 g/dL 3.5-5.0 L ALK PHOS (test code = 0247942133) 46 U/L 34-122 ALTv (test code = 1742-6) 13 U/L 5-35 AST(SGOT) (test code = 0826813889) 24 U/L 13-40 Lab Interpretation (test code = Abnormal 09651-5) [facility] 13:19:15 Test Item Value Reference Range Interpretation Comments MAGNESIUM (test code = 3494277110) 1.4 mg/dL 1.7-2.4 L Lab Interpretation (test code = Abnormal 42138-9) [facility] 13:19:15 Test Item Value Reference Range Interpretation Comments PHOSPHORUS (test code = 0771262952) 4.3 mg/dL 2.5-5.0 Lab Interpretation (test code = Normal 80904-7) [facility] (03913[facility] (ALB,T.PRO,BILI T,BU/BC,ALT,AST,ALK PHOS)2021-10-08 13:19:15 Test Item Value Reference Range Interpretation Comments TOTAL BILI (test code = 8234628829) 1.5 mg/dL 0.1-1.1 H BILI UNCON (test code = 4780467712) 1.3 mg/dL 0.1-1.1 H BILI CONJ (test code = 6674264477) 0.0 mg/dL 0.0-0.3 T PROTEIN (test code = 9370135831) 4.9 g/dL 6.3-8.2 L ALBUMIN (test code = 6676616515) 2.7 g/dL 3.5-5.0 L ALK PHOS (test code = 9626732642) 46 U/L 34-122 ALTv (test code = 1742-6) 13 U/L 5-35 AST(SGOT) (test code = 2428674728) 24 U/L 13-40 Lab Interpretation (test code = Abnormal 36883-6) [facility] WITH [id number] 11:26:11 Test Item Value Reference Range Interpretation Comments WBC (test code = See_Comment [Automated 2190-2) message] The sy stem which generated this result transmitted reference range : 4.30 - 11.10 10*3/?L. The reference range was not used to interpret this result as normal/abnormal . RBC (test code = See_Comment L [Automated 339-8) message] The sy stem which generated this [...] RDW-SD (test code = 46.1 fL 39.0-49.9 53291-1) RDW-CV (test code = 15.2 % 12.0-15.5 788-0) PLT (test code = See_Comment L [Automated 777-3) message] The sy stem which generated this result transmitted reference range : 166 - 358 10*3/ ?L. The reference r susan was not used to interpret this result as normal/abnormal . MPV (test code = 11.0 fL 9.5-12.9 14307-4) IPF % (test code = 4.9 % 1.3-7.7 Platelet count 0051414654) measured by fluorescence method. NRBC/100 WBC (test See_Comment [Automat ed code = 9886350542) message] The system which generated this result transmitted reference range : 0.0 - 10.0 /100 WBCs. The refer ence range was not u sed to interpret th is result as normal/abnormal . NRBC x10^3 (test code <0.01 See_Comment [Auto mated = 5677076988) message] The s ystem which generated this result transmitted reference range : 10*3/?L. The reference range was not used to interpret this result as normal/abnormal . GRAN MAT (NEUT) % 84.1 % (test code = 770-8) IMM GRAN % (test code 0.60 % = 1179807453) LYMPH % (test code = 4.2 % 736-9) MONO % (test code = 11.0 % 5905-5) EOS % (test code = 0.0 % 713-8) BASO % (test code = 0.1 % 706-2) GRAN MAT x10^3(ANC) 6.05 10*3/uL 1.88-7.09 (test code = 0482348430) IMM GRAN x10^3 (test 0.04 10*3/uL 0.00-0.06 code = 6937993404) LYMPH x10^3 (test code 0.30 10*3/uL 1.32-3.29 L = 731-0) MONO x10^3 (test code 0.79 10*3/uL 0.33-0.92 = 742-7) EOS x10^3 (test code = <0.03 0.03-0.39 L 711-2) BASO x10^3 (test code <0.03 0.01-0.07 = 704-7) POLYCHROMASIA (test 2+ See_Comment [Automa ramana code = 85893-4) message] The system which generated this result transmitted reference range : 2+. The referen ce range was not u sed to interpret th is result as normal/abnormal . Lab Interpretation Abnormal (test code = 46154-3) [facility] WITH [id number] 11:26:11 Test Item Value Reference Range Interpretation [...] RDW-SD (test code = 46.1 fL 39.0-49.9 56561-0) RDW-CV (test code = 15.2 % 12.0-15.5 788-0) PLT (test code = See_Comment L [Automated 777-3) message] The sy stem which generated this result transmitted reference range : 166 - 358 10*3/ ?L. The reference r susan was not used to interpret this result as normal/abnormal . MPV (test code = 11.0 fL 9.5-12.9 27612-3) IPF % (test code = 4.9 % 1.3-7.7 Platelet count 7534909603) measured by fluorescence method. NRBC/100 WBC (test See_Comment [Automat ed code = 1212141804) message] The system which generated this result transmitted reference range : 0.0 - 10.0 /100 WBCs. The refer ence range was not u sed to interpret th is result as normal/abnormal . NRBC x10^3 (test code <0.01 See_Comment [Auto mated = 6707256275) message] The s ystem which generated this result transmitted reference range : 10*3/?L. The reference range was not used to interpret this result as normal/abnormal . GRAN MAT (NEUT) % 84.1 % (test code = 770-8) IMM GRAN % (test code 0.60 % = 7287133141) LYMPH % (test code = 4.2 % 736-9) MONO % (test code = 11.0 % 5905-5) EOS % (test code = 0.0 % 713-8) BASO % (test code = 0.1 % 706-2) GRAN MAT x10^3(ANC) 6.05 10*3/uL 1.88-7.09 (test code = 2663682082) IMM GRAN x10^3 (test 0.04 10*3/uL 0.00-0.06 code = 0196274515) LYMPH x10^3 (test code 0.30 10*3/uL 1.32-3.29 L = 731-0) MONO x10^3 (test code 0.79 10*3/uL 0.33-0.92 = 742-7) EOS x10^3 (test code = <0.03 0.03-0.39 L 711-2) BASO x10^3 (test code <0.03 0.01-0.07 = 704-7) POLYCHROMASIA (test 2+ See_Comment [Automa ramana code = 50531-6) message] The system which generated this result transmitted reference range : 2+. The referen ce range was not u sed to interpret th is result as normal/abnormal . Lab Interpretation Abnormal (test code = 03634-7) [facility] WITH [id number] 11:26:11 Test Item Value Reference Range Interpretation Comments WBC (test code = See_Comment [Automated 0390-2) message] The sy stem which generated this result transmitted reference range : 4.30 - 11.10 10*3/?L. The reference range was not used to interpret this result as normal/abnormal . RBC (test code = See_Comment L [Automated 249-8) message] The sy stem which generated this [...] RDW-SD (test code = 46.1 fL 39.0-49.9 04616-1) RDW-CV (test code = 15.2 % 12.0-15.5 788-0) PLT (test code = See_Comment L [Automated 777-3) message] The sy stem which generated this result transmitted reference range : 166 - 358 10*3/ ?L. The reference r susan was not used to interpret this result as normal/abnormal . MPV (test code = 11.0 fL 9.5-12.9 28382-5) IPF % (test code = 4.9 % 1.3-7.7 Platelet count [id number]) measured by fluorescence method. NRBC/100 WBC (test See_Comment [Automat ed code = 6366770348) message] The system which generated this result transmitted reference range : 0.0 - 10.0 /100 WBCs. The refer ence range was not u sed to interpret th is result as normal/abnormal . NRBC x10^3 (test code <0.01 See_Comment [Auto mated = 7122151967) message] The s ystem which generated this result transmitted reference range : 10*3/?L. The reference range was not used to interpret this result as normal/abnormal . GRAN MAT (NEUT) % 84.1 % (test code = 770-8) IMM GRAN % (test code 0.60 % = 4570706849) LYMPH % (test code = 4.2 % 736-9) MONO % (test code = 11.0 % 5905-5) EOS % (test code = 0.0 % 713-8) BASO % (test code = 0.1 % 706-2) GRAN MAT x10^3(ANC) 6.05 10*3/uL 1.88-7.09 (test code = 7141983471) IMM GRAN x10^3 (test 0.04 10*3/uL 0.00-0.06 code = 4314219098) LYMPH x10^3 (test code 0.30 10*3/uL 1.32-3.29 L = 731-0) MONO x10^3 (test code 0.79 10*3/uL 0.33-0.92 = 742-7) EOS x10^3 (test code = <0.03 0.03-0.39 L 711-2) BASO x10^3 (test code <0.03 0.01-0.07 = 704-7) POLYCHROMASIA (test 2+ See_Comment [Automa ramana code = 97909-6) message] The system which generated this result transmitted reference range : 2+. The referen ce range was not u sed to interpret th is result as normal/abnormal . Lab Interpretation Abnormal (test code = 22089-8) [facility] / [id number] 11:04:07 Test Item Value Reference Range Interpretation Comments PROTIME PATIENT (test See_Comment L [Auto mated message] code = 5964-2) The system [employer] generated this result transmitted ref erence range: 12.0 - 1 4.7 Seconds. The reference range was not used to int erpret this result as normal/abnormal . INR (test code = 6301-6) Nor mal INR <1.1; Warfarin Therap eutic range 2.0 to 3. 0 or 2.5 to 3.5, dep ending upon the indica tions. Lab Interpretation (test Abnormal code = 20910-3) [facility] / [id number] 11:04:07 Test Item Value Reference Range Interpretation Comments PROTIME PATIENT (test See_Comment L [Auto mated message] code = 5964-2) The system [employer] generated this result transmitted ref erence range: 12.0 - 1 4.7 Seconds. The reference range was not used to int erpret this result as normal/abnormal . INR (test code = 6301-6) Nor mal INR <1.1; Warfarin Therap eutic range 2.0 to 3. 0 or 2.5 to 3.5, dep ending upon the indica tions. Lab Interpretation (test Abnormal code = 37637-6) [facility] / [id number] 11:04:07 Test Item Value Reference Range Interpretation Comments PROTIME PATIENT (test See_Comment L [Auto mated message] code = 5964-2) The system [employer] generated this result transmitted ref erence range: 12.0 - 1 4.7 Seconds. The reference range was not used to int erpret this result as normal/abnormal . INR (test code = 6301-6) Nor mal INR <1.1; Warfarin Therap eutic range 2.0 to 3. 0 or 2.5 to 3.5, dep ending upon the indica tions. Lab Interpretation (test Abnormal code = 40936-8) [facility]FIB[facility]EN2022-06-24 10:56:58 Test Item Value Reference Range Interpretation Comments Fibrinogen (test code = 6858611709) 233 mg/dL 167-453 Lab Interpretation (test code = Normal 20793-9) [facility]2022-[facility]-24 10:56:58 Test Item Value Reference Range Interpretation Comments Fibrinogen (test code = 5605265288) 233 mg/dL 167-453 Lab Interpretation (test code = Normal 77804-9) [facility]2022-[facility]-24 10:56:58 Test Item Value Reference Range Interpretation Comments Fibrinogen (test code = 2663351702) 233 mg/dL 167-453 Lab Interpretation (test code = Normal 99651-0) [facility]ACT[facility] THRM[facility]AS [id number] 10:55:23 Test Item Value Reference Range Interpretation Comments APTT Patient (test code = See_Comment [ Automated message] 3173-2) The system [employer]ones generated this result transmitted ref erence range: 26 - 36 Seconds. The re ference range was not u sed to interpret this result as normal/abnor mal. Lab Interpretation (test Normal code = 08998-0) [facility] [id number] 10:55:23 Test Item Value Reference Range Interpretation Comments APTT Patient (test code = See_Comment [ Automated message] 3173-2) The system [employer]ones generated this result transmitted ref erence range: 26 - 36 Seconds. The re ference range was not u sed to interpret this result as normal/abnor mal. Lab Interpretation (test Normal code = 47588-8) [facility] [id number] 10:55:23 Test Item Value Reference Range Interpretation Comments APTT Patient (test code = See_Comment [ Automated message] 3173-2) The system [employer] generated this result transmitted ref erence range: 26 - 36 Seconds. The re ference range was not u sed to interpret this result as normal/abnor mal. Lab Interpretation (test Normal code = 22289-4) [facility] CenterAC Panel 20 + Lactic [id number] 10:32:44 Test Item Value Reference Range Interpretation Comments PH (test code = 2) 7.35-7.45 PCO2 (test code = See_Comment [Automate d 9041819486) message] The sy stem which generated this result transmitted reference range : 35 - 45 mmHg. The reference range was not used to interpret this result as normal/abnormal . PO2 (test code = See_Comment H [Automated 0452630461) message] The sy stem which generated this result transmitted reference range : 80 - 100 mmHg. The reference range was not used to interpret this result as normal/abnormal . HCO3 (test code = See_Comment [Automate d 0979781487) message] The sy stem which generated this result transmitted reference range : 22 - 26 mEq/L. The reference range was not used to interpret this result as normal/abnormal . BE (test code = See_Comment [Automated 2872440728) message] The sy stem which generated this result transmitted reference range : -3.0 - 3.0 mEq/ L. The reference r susan was not used to interpret this result as normal/abnormal . THB (test code = 7.7 g/dL 12.0-16.0 LL 4657894428) %O2HB (test code = 97.4 % 94.0-99.0 6252601838) %COHB ART (test code = 1.4 % 0.0-1.5 0874223060) %METHB ART (test code = 0.3 % 0.4-1.5 L 5121322320) VOL%O2 ART (test code = 11.0 % 15.0-23.0 L 7272561135) NA (test code = 132 mmol/L 135-145 L 0170832795) K+ (test code = 3.9 mmol/L 3.5-5.0 1720859579) AC CA IONZ (test code = 5.40 mg/dL 4.50-5.30 H 8527158794) GLUCOSE (test code = 98 mg/dL 70-110 4911413102) LACTIC ACID (test code 1.16 mmol/L 0.50-2.20 = 1971441638) Lab Interpretation Abnormal (test code = 19376-5) [facility] CenterAC [facility] 20 + Lactic [id number] 10:32:44 Test Item Value Reference Range Interpretation Comments PH (test code = 2) 7.35-7.45 PCO2 (test code = See_Comment [Automate d 1715176342) message] The sy stem which generated this result transmitted reference range : 35 - 45 mmHg. The reference range was not used to interpret this result as normal/abnormal . PO2 (test code = See_Comment H [Automated 7539177109) message] The sy stem which generated this result transmitted reference range : 80 - 100 mmHg. The reference range was not used to interpret this result as normal/abnormal . HCO3 (test code = See_Comment [Automate d 0414045484) message] The sy stem which generated this result transmitted reference range : 22 - 26 mEq/L. The reference range was not used to interpret this result as normal/abnormal . BE (test code = See_Comment [Automated 1416933900) message] The sy stem which generated this result transmitted reference range : -3.0 - 3.0 mEq/ L. The reference r susan was not used to interpret this result as normal/abnormal . THB (test code = 7.7 g/dL 12.0-16.0 LL 2550783394) %O2HB (test code = 97.4 % 94.0-99.0 8459030614) %COHB ART (test code = 1.4 % 0.0-1.5 2341049467) %METHB ART (test code = 0.3 % 0.4-1.5 L 9229328158) VOL%O2 ART (test code = 11.0 % 15.0-23.0 L 0349032661) NA (test code = 132 mmol/L 135-145 L 1400777976) K+ (test code = 3.9 mmol/L 3.5-5.0 0948880597) AC CA IONZ (test code = 5.40 mg/dL 4.50-5.30 H 2711542094) GLUCOSE (test code = 98 mg/dL 70-110 8468567398) LACTIC ACID (test code 1.16 mmol/L 0.50-2.20 = 9875198036) Lab Interpretation Abnormal (test code = 27115-7) [facility] CenterAC [facility] 20 + Lactic [id number] 10:32:44 Test Item Value Reference Range Interpretation Comments PH (test code = 2) 7.35-7.45 PCO2 (test code = See_Comment [Automate d 5637483770) message] The sy stem which generated this result transmitted reference range : 35 - 45 mmHg. The reference range was not used to interpret this result as normal/abnormal . PO2 (test code = See_Comment H [Automated 2944974413) message] The sy stem which generated this result transmitted reference range : 80 - 100 mmHg. The reference range was not used to interpret this result as normal/abnormal . HCO3 (test code = See_Comment [Automate d 9948698706) message] The sy stem which generated this result transmitted reference range : 22 - 26 mEq/L. The reference range was not used to interpret this result as normal/abnormal . BE (test code = See_Comment [Automated 4070853850) message] The sy stem which generated this result transmitted reference range : -3.0 - 3.0 mEq/ L. The reference r susan was not used to interpret this result as normal/abnormal . THB (test code = 7.7 g/dL 12.0-16.0 LL 4860303686) %O2HB (test code = 97.4 % 94.0-99.0 7744885557) %COHB ART (test code = 1.4 % 0.0-1.5 7359497305) %METHB ART (test code = 0.3 % 0.4-1.5 L 9344703219) VOL%O2 ART (test code = 11.0 % 15.0-23.0 L 3037540146) NA (test code = 132 mmol/L 135-145 L 6902394850) K+ (test code = 3.9 mmol/L 3.5-5.0 3264114282) AC CA IONZ (test code = 5.40 mg/dL 4.50-5.30 H 4554374606) GLUCOSE (test code = 98 mg/dL 70-110 9730938643) LACTIC ACID (test code 1.16 mmol/L 0.50-2.20 = 9625976978) Lab Interpretation Abnormal (test code = 89926-2) [facility] CenterProthrombin Time / [id number] 10:25:01 Test Item Value Reference Range Interpretation Comments PROTIME PATIENT (test See_Comment L [Auto mated message] code = 5964-2) The system [employer] generated this result transmitted ref erence range: 12.0 - 1 4.7 Seconds. The reference range was not used to int erpret this result as normal/abnormal . INR (test code = 6301-6) Nor mal INR <1.1; Warfarin Therap eutic range 2.0 to 3. 0 or 2.5 to 3.5, dep ending upon the indica tions. Lab Interpretation (test Abnormal code = 56919-5) [facility] CenterProth[facility]bin Time / [id number] 10:25:01 Test Item Value Reference Range Interpretation Comments PROTIME PATIENT (test See_Comment L [Auto mated message] code = 5964-2) The system [employer] generated this result transmitted ref erence range: 12.0 - 1 4.7 Seconds. The reference range was not used to int erpret this result as normal/abnormal . INR (test code = 6301-6) Nor mal INR <1.1; Warfarin Therap eutic range 2.0 to 3. 0 or 2.5 to 3.5, dep ending upon the indica tions. Lab Interpretation (test Abnormal code = 50765-3) [facility] CenterProth[facility]bin Time / [id number] 10:25:01 Test Item Value Reference Range Interpretation Comments PROTIME PATIENT (test See_Comment L [Auto mated message] code = 5964-2) The system [employer] generated this result transmitted ref erence range: 12.0 - 1 4.7 Seconds. The reference range was not used to int erpret this result as normal/abnormal . INR (test code = 6301-6) Nor mal INR <1.1; Warfarin Therap eutic range 2.0 to 3. 0 or 2.5 to 3.5, dep ending upon the indica tions. Lab Interpretation (test Abnormal code = 04027-5) [facility] CenterPrepare Plasma (in units)~2021-10-08 09:48:16 Test Item Value Reference Range Interpretation Comments Unit Blood Type (test A Pos code = 4410) ISBT Blood Type Code (test code = 460490) Unit Number (test code [id number] = 4411) Blood Expiration Date & Time (test code = 804638) Status Information Issued (test code = 4412) Product Identification FFP (test code = 4413) Product Code (test C9144F22 Performed at [facility] code = 4414) Laboratory Services - [facility] Blood [address] [address]Macy Free: [phone] A No. [id number] [facility]2021-10-08 09:48:16 Test Item Value Reference Range Interpretation Comments Unit Blood Type (test A Pos code = 4410) ISBT Blood Type Code (test code = 200909) Unit Number (test code [id number] = 4411) Blood Expiration Date & Time (test code = 358993) Status Information Issued (test code = 4412) Product Identification FFP (test code = 4413) Product Code (test C5555B41 Performed at [facility] code = 4414) Laboratory Services - [facility] Blood [address] [place] [address]Ywff Free: [phone] A No. [id number] [facility] CenterPrep[facility] Plasma (in units)~2021-10-08 09:48:16 Test Item Value Reference Range Interpretation Comments Unit Blood Type (test A Pos code = 4410) ISBT Blood Type Code (test code = 519213) Unit Number (test code [id number] = 4411) Blood Expiration Date & Time (test code = 129511) Status Information Issued (test code = 4412) Product Identification FFP (test code = 4413) Product Code (test H5099Y03 Performed at [facility] code = 4414) Laboratory Services [facility] Blood [address] [address]Qjds Free: [phone] A No. [id number] [facility] Packed RBC (in units)2021-10-08 09:47:11 Test Item Value Reference Range Interpretation Comments Cross Match Result Compatible (test code = 4409) ISBT Blood Type Code (test code = 617220) Unit Blood Type (test A Pos code = 4410) Unit Number (test [id number] code = 4411) Blood Expiration Date & Time (test code = 632057) Status Information Issued (test code = 4412) Product Red Blood Cells Identification (test code = 4413) Product Code (test J2489N74 Performed at [facility] code = 4414) Laboratory Services [facility] Blood [address] [address]Ntnv Free: [phone] A No. [id number] [facility] (in units)2021-10-08 09:47:11 Test Item Value Reference Range Interpretation Comments Cross Match Result Compatible (test code = 4409) ISBT Blood Type Code (test code = 238444) Unit Blood Type (test A Pos code = 4410) Unit Number (test [id number] code = 4411) Blood Expiration Date & Time (test code = 041613) Status Information Issued (test code = 4412) Product Red Blood Cells Identification (test code = 4413) Product Code (test H5358M87 Performed at [facility] code = 4414) Laboratory Services [facility] Blood [address] [address]Qeio Free: [phone] A No. [id number] [facility] CenterPrepar Packed RBC (in units)2021-10-08 09:47:11 Test Item Value Reference Range Interpretation Comments Cross Match Result Compatible (test code = 4409) ISBT Blood Type Code (test code = 719401) Unit Blood Type (test A Pos code = 4410) Unit Number (test [id number] code = 4411) Blood Expiration Date & Time (test code = 752714) Status Information Issued (test code = 4412) Product Red Blood Cells Identification (test code = 4413) Product Code (test E2655J08 Performed at [facility] code = 4414) Laboratory Services - [facility] Blood [address] [address]Rkrd Free: [phone] A No. [id number] [facility] CenterFIBRINOGEN2022-06-24 08:38:17 FibrinogenComment: PT/INR failed. Fib autoverified. Need new order. Spoke to MCKENZIE Mireles/Dr. Streeter. This is a corrected result. ?Previous result was 165 mg/dL on 10/08/[address] [place] [address] [facility] [id number] 08:38:17FibrinogenComment: PT/INR failed. Fib autoverified. Need new order. Spoke to MCKENZIE Mireles/Dr. Streeter. This is a corrected result. ?Previous result was 165 mg/dL on 10/08/[address] [place] [address] [facility] SERVICES[facility] CenterFIBRINOGEN2022-06-24 08:38:17FibrinogenComment: PT/INR failed. Fib autoverified. Need new order. Spoke to MCKENZIE Mireles/Dr. Streeter. This is a corrected result. ?Previous result was 165 mg/dL on 10/08/[address] [place] [address] LAB[facility] SERVICESMethod[facility] CenterCBC WITHOUT [id number] 08:34:10 Test Item Value Reference Range Interpretation Comments WBC (test code = See_Comment [Automated message] 6690-2) The system [employer] generated this result transmitted ref erence range: 4.30 - 1 1.10 10*3/?L. The reference range was not used to int erpret this result as normal/abnormal . RBC (test code = 789-8) See_Comment L [Au tomated message] The system [employer] generated this result transmitted ref erence range: [...] See_Comment L [Au tomated message] The system [employer] generated this result transmitted ref erence range: 166 - 35 8 10*3/?L. The reference range was not used to int erpret this result as normal/abnormal . MPV (test code = 11.4 fL 9.5-12.9 04293-5) RDW-CV (test code = 14.8 % 12.0-15.5 788-0) RDW-SD (test code = 47.3 fL 39.0-49.9 63442-0) NRBC x10^3 (test code = <0.01 See_Comment [Au tomated message] 2348646772) The system [employer] generated this result transmitted ref erence range: 10*3/?L. The reference range was not used to int erpret this result as normal/abnormal . NRBC/100 WBC (test code See_Comment [Au tomated message] = 0660968580) The system [facility] generated this result transmitted ref erence range: 0.0 - 10 .0 /100 WBCs. The reference range was not used to int erpret this result as normal/abnormal . IPF % (test code = 5.9 % 1.3-7.7 Platelet count [id number]) measured by fluorescence me thod. Lab Interpretation Abnormal (test code = 64303-1) [facility] WITHOUT [id number] 08:34:10 Test Item Value Reference Range Interpretation Comments WBC (test code = See_Comment [Automated message] 6690-2) The system [employer] generated this result transmitted ref erence range: 4.30 - 1 1.10 10*3/?L. The reference range was not used to int erpret this result as normal/abnormal . RBC (test code = 789-8) See_Comment L [Au tomated message] The system [employer] generated this result transmitted ref erence range: [...] See_Comment L [Au tomated message] The system [employer] generated this result transmitted ref erence range: 166 - 35 8 10*3/?L. The reference range was not used to int erpret this result as normal/abnormal . MPV (test code = 11.4 fL 9.5-12.9 18596-0) RDW-CV (test code = 14.8 % 12.0-15.5 788-0) RDW-SD (test code = 47.3 fL 39.0-49.9 20384-1) NRBC x10^3 (test code = <0.01 See_Comment [Au tomated message] 7812121575) The system [employer] generated this result transmitted ref erence range: 10*3/?L. The reference range was not used to int erpret this result as normal/abnormal . NRBC/100 WBC (test code See_Comment [Au tomated message] = 6887969591) The system [facility] generated this result transmitted ref erence range: 0.0 - 10 .0 /100 WBCs. The reference range was not used to int erpret this result as normal/abnormal . IPF % (test code = 5.9 % 1.3-7.7 Platelet count 8549231455) measured by fluorescence me thod. Lab Interpretation Abnormal (test code = 27094-8) [facility] WITHOUT [id number] 08:34:10 Test Item Value Reference Range Interpretation Comments WBC (test code = See_Comment [Automated message] 6690-2) The system [employer] generated this result transmitted ref erence range: 4.30 - 1 1.10 10*3/?L. The reference range was not used to int erpret this result as normal/abnormal . RBC (test code = 789-8) See_Comment L [Au tomated message] The system [employer] generated this result transmitted ref erence range: [...] See_Comment L [Au tomated message] The system [employer] generated this result transmitted ref erence range: 166 - 35 8 10*3/?L. The reference range was not used to int erpret this result as normal/abnormal . MPV (test code = 11.4 fL 9.5-12.9 76494-5) RDW-CV (test code = 14.8 % 12.0-15.5 788-0) RDW-SD (test code = 47.3 fL 39.0-49.9 40515-9) NRBC x10^3 (test code = <0.01 See_Comment [Au tomated message] 2420844285) The system [employer] generated this result transmitted ref erence range: 10*3/?L. The reference range was not used to int erpret this result as normal/abnormal . NRBC/100 WBC (test code See_Comment [Au tomated message] = 3245741448) The system [employer] generated this result transmitted ref erence range: 0.0 - 10 .0 /100 WBCs. The reference range was not used to int erpret this result as normal/abnormal . IPF % (test code = 5.9 % 1.3-7.7 Platelet count 6929938407) measured by fluorescence me thod. Lab Interpretation Abnormal (test code = 25839-4) [facility] ([facility])~2021-10-08 07:24:24 Test Item Value Reference Range Interpretation Comments Unit Blood Type (test A code = 4410) ISBT Blood Type Code A000 (test code = 571685) Unit Number (test [id number] code = 4411) Blood Expiration Date & Time (test code = 008623) Status Information Issued (test code = 4412) Product Cryoprecipitate Identification (test code = 4413) Product Code (test L0796E43 Performed at [facility] code = 4414) Laboratory Services - [facility] Blood [address] [place] [address]Zldw Free: [phone] A No. [id number] [facility]2021-10-08 07:24:24 Test Item Value Reference Range Interpretation Comments Unit Blood Type (test A code = 4410) ISBT Blood Type Code A000 (test code = 549915) Unit Number (test [id number] code = 4411) Blood Expiration Date & Time (test code = 519809) Status Information Issued (test code = 4412) Product Cryoprecipitate Identification (test code = 4413) Product Code (test C1741B96 Performed at [facility] code = 4414) Laboratory Services - [facility] Blood [address] [place] [address]Ucfb Free: [phone] A No. [id number] [facility] (in units)~2021-10-08 07:24:24 Test Item Value Reference Range Interpretation Comments Unit Blood Type (test A code = 4410) ISBT Blood Type Code A000 (test code = 368946) Unit Number (test [id number] code = 4411) Blood Expiration Date & Time (test code = 020481) Status Information Issued (test code = 4412) Product Cryoprecipitate Identification (test code = 4413) Product Code (test L9354F64 Performed at [facility] code = 4414) Laboratory Services - [facility] Blood [address] [address]Cylv Free: [phone] A No. [id number] [facility] (NA, K, CL, CO2, GLUCOSE, BUN, CREATININE, CA)2021-10-08 07:14:23 Test Item Value Reference Range Interpretation Comments NA (test code = 134 mmol/L 135-145 L 2318806896) K (test code = 4.6 mmol/L 3.5-5.0 2878518241) CL (test code = 109 mmol/L 98-108 H 9948141436) CO2 TOTAL (test code = 21 mmol/L 23-31 L 1397557326) AGAP (test code = 2-16 6823180557) BUN (test code = 9 mg/dL 7-23 6013426527) GLUCOSE (test code = 206 mg/dL 70-110 H 1406187508) CREATININE (test code = 0.61 mg/dL 0.50-1.04 1418961266) CALCIUM (test code = 7.5 mg/dL 8.6-10.6 L 9003816245) eGFR (test code = mL/min/1.73m2 5329889004) MICKY (test code = MICKY) Association of [...] tests). Lab Interpretation Abnormal (test code = 00107-9) [facility] METABOLIC PANEL (NA, K, CL, CO2, GLUCOSE, BUN, CREATININE, CA)2021-10-08 07:14:23 Test Item Value Reference Range Interpretation Comments NA (test code = 134 mmol/L 135-145 L 5774765283) K (test code = 4.6 mmol/L 3.5-5.0 7478784587) CL (test code = 109 mmol/L 98-108 H 5486310662) CO2 TOTAL (test code = 21 mmol/L 23-31 L 2235168701) AGAP (test code = 2-16 2451300737) BUN (test code = 9 mg/dL 7-23 2548007886) GLUCOSE (test code = 206 mg/dL 70-110 H 7261547131) CREATININE (test code = 0.61 mg/dL 0.50-1.04 8043325332) CALCIUM (test code = 7.5 mg/dL 8.6-10.6 L 3181531878) eGFR (test code = mL/min/1.73m2 7281640013) MICKY (test code = MICKY) Association of [...] tests). Lab Interpretation Abnormal (test code = 00737-3) [facility] METABOLIC PANEL (NA, K, CL, CO2, GLUCOSE, BUN, CREATININE, CA)2021-10-08 07:14:23 Test Item Value Reference Range Interpretation Comments NA (test code = 134 mmol/L 135-145 L 0303668037) K (test code = 4.6 mmol/L 3.5-5.0 5943943347) CL (test code = 109 mmol/L 98-108 H 6982334229) CO2 TOTAL (test code = 21 mmol/L 23-31 L 1874680003) AGAP (test code = 2-16 6581980009) BUN (test code = 9 mg/dL 7-23 6634205294) GLUCOSE (test code = 206 mg/dL 70-110 H 7414691400) CREATININE (test code = 0.61 mg/dL 0.50-1.04 4209944986) CALCIUM (test code = 7.5 mg/dL 8.6-10.6 L 6403494466) eGFR (test code = mL/min/1.73m2 5845201627) MICKY (test code = MICKY) Association of [...] tests). Lab Interpretation Abnormal (test code = 57098-8) [facility]2022-[facility] 06:46:57 Test Item Value Reference Range Interpretation Comments Fibrinogen (test code = 8937265069) 174 mg/dL 167-453 Lab Interpretation (test code = Normal 56191-3) [facility]2022-06-24 06:46:57 Test Item Value Reference Range Interpretation Comments Fibrinogen (test code = 0237362473) 174 mg/dL 167-453 Lab Interpretation (test code = Normal 40067-7) [facility]2022-06-24 06:46:57 Test Item Value Reference Range Interpretation Comments Fibrinogen (test code = 2699194700) 174 mg/dL 167-453 Lab Interpretation (test code = Normal 50921-2) [facility]2022-06-24 06:45:07 Test Item Value Reference Range Interpretation Comments Fibrinogen (test code = 3527011359) 196 mg/dL 167-453 Lab Interpretation (test code = Normal 18885-0) [facility] Test Item Value Reference Range Interpretation Comments Fibrinogen (test code = 7587583390) 196 mg/dL 167-453 Lab Interpretation (test code = Normal 98811-1) [facility]07 Test Item Value Reference Range Interpretation Comments Fibrinogen (test code = 0047028669) 196 mg/dL 167-453 Lab Interpretation (test code = Normal 23567-4) [facility] Platelets (in units)~2021-10-08 06:44:36 Test Item Value Reference Range Interpretation Comments Unit Blood Type (test A Pos code = 4410) ISBT Blood Type Code (test code = 031607) Unit Number (test code [id number] = 4411) Blood Expiration Date & Time (test code = 306920) Status Information Issued (test code = 4412) Product Identification Platelets (test code = 4413) Product Code (test [id number] Performed at [facility] code = 4414) Laboratory Services - [facility] Blood [address] [address]Lczb Free: [phone] A No. [id number] [facility] Platelets (in units)~2021-10-08 06:44:36 Test Item Value Reference Range Interpretation Comments Unit Blood Type (test A Pos code = 4410) ISBT Blood Type Code (test code = 407815) Unit Number (test code [id number] = 4411) Blood Expiration Date & Time (test code = 004635) Status Information Issued (test code = 4412) Product Identification Platelets (test code = 4413) Product Code (test [id number] Performed at [facility] code = 4414) Laboratory Services [facility] Blood [address] [address]Kipy Free: [phone] A No. [id number] [facility]2021-10-08 06:44:36 Test Item Value Reference Range Interpretation Comments Unit Blood Type (test A Pos code = 4410) ISBT Blood Type Code (test code = 222584) Unit Number (test code [id number] = 4411) Blood Expiration Date & Time (test code = 124037) Status Information Issued (test code = 4412) Product Identification Platelets (test code = 4413) Product Code (test [id number] Performed at [facility] code = 4414) Laboratory Services - [facility] Blood [id number] [place] [address]Jvka Free: [phone] A No. [id number] [facility] [id number] 06:44:01 Test Item Value Reference Range Interpretation Comments APTT Patient (test code = See_Comment [ Automated message] 3173-2) The system [employer]ones generated this result transmitted ref erence range: 26 - 36 Seconds. The re ference range was not u sed to interpret this result as normal/abnor mal. Lab Interpretation (test Normal code = 13640-0) [facility] / [id number] 06:44:01 Test Item Value Reference Range Interpretation Comments PROTIME PATIENT (test See_Comment H [Auto mated message] code = 5964-2) The system [employer] generated this result transmitted ref erence range: 10.1 - 1 2.6 Seconds. The reference range was not used to int erpret this result as normal/abnormal . INR (test code = 6301-6) Nor mal INR <1.1; Warfarin Therap eutic range 2.0 to 3. 0 or 2.5 to 3.5, dep ending upon the indica tions. Lab Interpretation (test Abnormal code = 66200-4) [facility] [id number] 06:44:01 Test Item Value Reference Range Interpretation Comments APTT Patient (test code = See_Comment [ Automated message] 3173-2) The system [employer] generated this result transmitted ref erence range: 26 - 36 Seconds. The re ference range was not u sed to interpret this result as normal/abnor mal. Lab Interpretation (test Normal code = 87116-7) [facility] / [id number] 06:44:01 Test Item Value Reference Range Interpretation Comments PROTIME PATIENT (test See_Comment H [Auto mated message] code = 5964-2) The system [employer] generated this result transmitted ref erence range: 10.1 - 1 2.6 Seconds. The reference range was not used to int erpret this result as normal/abnormal . INR (test code = 6301-6) Nor mal INR <1.1; Warfarin Therap eutic range 2.0 to 3. 0 or 2.5 to 3.5, dep ending upon the indica tions. Lab Interpretation (test Abnormal code = 11010-2) [facility] [id number] 06:44:01 Test Item Value Reference Range Interpretation Comments APTT Patient (test code = See_Comment [ Automated message] 3173-2) The system [employer] generated this result transmitted ref erence range: 26 - 36 Seconds. The re ference range was not u sed to interpret this result as normal/abnor mal. Lab Interpretation (test Normal code = 96777-2) [facility] / [id number] 06:44:01 Test Item Value Reference Range Interpretation Comments PROTIME PATIENT (test See_Comment H [Auto mated message] code = 5964-2) The system [employer] generated this result transmitted ref erence range: 10.1 - 1 2.6 Seconds. The reference range was not used to int erpret this result as normal/abnormal . INR (test code = 6301-6) Nor mal INR <1.1; Warfarin Therap eutic range 2.0 to 3. 0 or 2.5 to 3.5, dep ending upon the indica tions. Lab Interpretation (test Abnormal code = 18837-9) [facility] WITH [id number] 06:33:16 Test Item Value Reference Range Interpretation [...] (test code = 51.9 fL 39.0-49.9 H 66016-4) RDW-CV (test code = 16.2 % 12.0-15.5 H 788-0) PLT (test code = See_Comment [Automated 777-3) message] The system which generated this result transmit ramana reference range : 166 - 358 10*3/ ?L. The reference range was not u sed to interpret th is result as normal/abnormal . MPV (test code = 11.3 fL 9.5-12.9 94700-9) NRBC/100 WBC (test See_Comment [Automat ed code = 6125648176) message] The system which generated this result transmit ramana reference range : 0.0 - 10.0 /100 WBCs. The reference range was not used to interpret this result as normal/abnormal . NRBC x10^3 (test code <0.01 See_Comment [Auto mated = 2191850101) message] The system which generated this result transmit ramana reference range : 10*3/?L. The reference range was not used to interpret this result as normal/abnormal . GRAN MAT (NEUT) % 86.0 % (test code = 770-8) IMM GRAN % (test code 0.80 % = 3708750419) LYMPH % (test code = 3.8 % 736-9) MONO % (test code = 9.3 % 5905-5) EOS % (test code = 0.0 % 713-8) BASO % (test code = 0.1 % 706-2) GRAN MAT x10^3(ANC) 11.38 10*3/uL 1.88-7.09 H (test code = 2785100304) IMM GRAN x10^3 (test 0.10 10*3/uL 0.00-0.06 H code = 9016713066) LYMPH x10^3 (test code 0.50 10*3/uL 1.32-3.29 L = 731-0) MONO x10^3 (test code 1.23 10*3/uL 0.33-0.92 H = 742-7) EOS x10^3 (test code = <0.03 0.03-0.39 L 711-2) BASO x10^3 (test code <0.03 0.01-0.07 = 704-7) Lab Interpretation Abnormal (test code = 12976-3) [facility] WITH [id number] 06:33:16 Test Item Value Reference Range Interpretation [...] (test code = 51.9 fL 39.0-49.9 H 50511-3) RDW-CV (test code = 16.2 % 12.0-15.5 H 788-0) PLT (test code = See_Comment [Automated 777-3) message] The system which generated this result transmit ramana reference range : 166 - 358 10*3/ ?L. The reference range was not u sed to interpret th is result as normal/abnormal . MPV (test code = 11.3 fL 9.5-12.9 55774-2) NRBC/100 WBC (test See_Comment [Automat ed code = 6764658320) message] The system which generated this result transmit ramana reference range : 0.0 - 10.0 /100 WBCs. The reference range was not used to interpret this result as normal/abnormal . NRBC x10^3 (test code <0.01 See_Comment [Auto mated = 3372493066) message] The system which generated this result transmit ramana reference range : 10*3/?L. The reference range was not used to interpret this result as normal/abnormal . GRAN MAT (NEUT) % 86.0 % (test code = 770-8) IMM GRAN % (test code 0.80 % = 1724587250) LYMPH % (test code = 3.8 % 736-9) MONO % (test code = 9.3 % 5905-5) EOS % (test code = 0.0 % 713-8) BASO % (test code = 0.1 % 706-2) GRAN MAT x10^3(ANC) 11.38 10*3/uL 1.88-7.09 H (test code = 1335604064) IMM GRAN x10^3 (test 0.10 10*3/uL 0.00-0.06 H code = 0807369158) LYMPH x10^3 (test code 0.50 10*3/uL 1.32-3.29 L = 731-0) MONO x10^3 (test code 1.23 10*3/uL 0.33-0.92 H = 742-7) EOS x10^3 (test code = <0.03 0.03-0.39 L 711-2) BASO x10^3 (test code <0.03 0.01-0.07 = 704-7) Lab Interpretation Abnormal (test code = 91304-3) [facility] WITH [id number] 06:33:16 Test Item Value Reference Range Interpretation [...] (test code = 51.9 fL 39.0-49.9 H 98045-0) RDW-CV (test code = 16.2 % 12.0-15.5 H 788-0) PLT (test code = See_Comment [Automated 777-3) message] The system which generated this result transmit ramana reference range : 166 - 358 10*3/ ?L. The reference range was not u sed to interpret th is result as normal/abnormal . MPV (test code = 11.3 fL 9.5-12.9 58249-4) NRBC/100 WBC (test See_Comment [Automat ed code = 6807268167) message] The system which generated this result transmit ramana reference range : 0.0 - 10.0 /100 WBCs. The reference range was not used to interpret this result as normal/abnormal . NRBC x10^3 (test code <0.01 See_Comment [Auto mated = 7297170291) message] The system which generated this result transmit ramana reference range : 10*3/?L. The reference range was not used to interpret this result as normal/abnormal . GRAN MAT (NEUT) % 86.0 % (test code = 770-8) IMM GRAN % (test code 0.80 % = 1650186697) LYMPH % (test code = 3.8 % 736-9) MONO % (test code = 9.3 % 5905-5) EOS % (test code = 0.0 % 713-8) BASO % (test code = 0.1 % 706-2) GRAN MAT x10^3(ANC) 11.38 10*3/uL 1.88-7.09 H (test code = 2624134067) IMM GRAN x10^3 (test 0.10 10*3/uL 0.00-0.06 H code = 8354817586) LYMPH x10^3 (test code 0.50 10*3/uL 1.32-3.29 L = 731-0) MONO x10^3 (test code 1.23 10*3/uL 0.33-0.92 H = 742-7) EOS x10^3 (test code = <0.03 0.03-0.39 L 711-2) BASO x10^3 (test code <0.03 0.01-0.07 = 704-7) Lab Interpretation Abnormal (test code = 30881-2) [facility] + LACTIC [id number] 06:25:43 Test Item Value Reference Range Interpretation Comments PH (test code = 7.32-7.42 L 2828434954) PCO2 SHAY (test code = See_Comment [Auto mated 7652533707) message] The sy stem which generated this result transmitted reference range : 41 - 51 mmHg. The reference range was not used to interpret this result as normal/abnormal . PO2 SHAY (test code = See_Comment L [Autom ated 3363732325) message] The sy stem which generated this result transmitted reference range : 25 - 40 mmHg. The reference range was not used to interpret this result as normal/abnormal . HCO3 SHAY (test code = See_Comment L [Auto mated 5921921247) message] The sy stem which generated this result transmitted reference range : 24 - 28 mEq/L. The reference range was not used to interpret this result as normal/abnormal . AC VBE(BEAKER) (test mEq/L code = 0263556040) THB SHAY (test code = 6.1 g/dL 12.0-16.0 LL 2544305851) %O2HB SHAY (test code = 26.6 % 52.0-63.0 L 0186526490) %COHB SHAY (test code = 1.0 % 0.0-1.5 3678664527) %METHB SHAY (test code = 0.9 % 0.4-1.5 3323406943) VOL%O2 SHAY (test code = 2.3 % 6.0-12.0 L 6472811856) NA (test code = 130 mmol/L 135-145 L 5008181387) K+ (test code = 4.3 mmol/L 3.5-5.0 6330849491) AC CA IONZ (test code = 4.60 mg/dL 4.50-5.30 8566511063) GLUCOSE (test code = 239 mg/dL 70-110 H 5744323598) LACTIC ACID (test code 3.16 mmol/L 0.50-2.20 H = 8978554757) Lab Interpretation Abnormal (test code = 56225-1) [facility] LACTIC [id number] 06:25:43 Test Item Value Reference Range Interpretation Comments PH (test code = 7.32-7.42 L 1294572719) PCO2 SHAY (test code = See_Comment [Auto mated 1974313732) message] The sy stem which generated this result transmitted reference range : 41 - 51 mmHg. The reference range was not used to interpret this result as normal/abnormal . PO2 SHAY (test code = See_Comment L [Autom ated 8127486753) message] The sy stem which generated this result transmitted reference range : 25 - 40 mmHg. The reference range was not used to interpret this result as normal/abnormal . HCO3 SHAY (test code = See_Comment L [Auto mated 2694453640) message] The sy stem which generated this result transmitted reference range : 24 - 28 mEq/L. The reference range was not used to interpret this result as normal/abnormal . AC VBE(BEAKER) (test mEq/L code = 3612128131) THB SHAY (test code = 6.1 g/dL 12.0-16.0 LL 6623471037) %O2HB SHAY (test code = 26.6 % 52.0-63.0 L 2578283120) %COHB SHAY (test code = 1.0 % 0.0-1.5 9969773253) %METHB SHAY (test code = 0.9 % 0.4-1.5 5087462945) VOL%O2 SHAY (test code = 2.3 % 6.0-12.0 L 6088312416) NA (test code = 130 mmol/L 135-145 L 8248213729) K+ (test code = 4.3 mmol/L 3.5-5.0 7308270368) AC CA IONZ (test code = 4.60 mg/dL 4.50-5.30 1949812911) GLUCOSE (test code = 239 mg/dL 70-110 H 9705820104) LACTIC ACID (test code 3.16 mmol/L 0.50-2.20 H = 4683515083) Lab Interpretation Abnormal (test code = 45831-4) [facility] [id number] 06:25:43 Test Item Value Reference Range Interpretation Comments PH (test code = 7.32-7.42 L 8947503053) PCO2 SHAY (test code = See_Comment [Auto mated 2010572656) message] The sy stem which generated this result transmitted reference range : 41 - 51 mmHg. The reference range was not used to interpret this result as normal/abnormal . PO2 SHAY (test code = See_Comment L [Autom ated 0606540738) message] The sy stem which generated this result transmitted reference range : 25 - 40 mmHg. The reference range was not used to interpret this result as normal/abnormal . HCO3 SHAY (test code = See_Comment L [Auto mated 6432606736) message] The sy stem which generated this result transmitted reference range : 24 - 28 mEq/L. The reference range was not used to interpret this result as normal/abnormal . AC VBE(BEAKER) (test mEq/L code = 3588580909) THB SHAY (test code = 6.1 g/dL 12.0-16.0 LL 0648688885) %O2HB SHAY (test code = 26.6 % 52.0-63.0 L 1777143513) %COHB SHAY (test code = 1.0 % 0.0-1.5 0374135212) %METHB SHAY (test code = 0.9 % 0.4-1.5 2345806067) VOL%O2 SHAY (test code = 2.3 % 6.0-12.0 L 0655095351) NA (test code = 130 mmol/L 135-145 L 2241667311) K+ (test code = 4.3 mmol/L 3.5-5.0 2757965433) AC CA IONZ (test code = 4.60 mg/dL 4.50-5.30 5695515100) GLUCOSE (test code = 239 mg/dL 70-110 H 5396482421) LACTIC ACID (test code 3.16 mmol/L 0.50-2.20 H = 6934164536) Lab Interpretation Abnormal (test code = 22181-5) [facility] METABOLIC PANEL (NA, K, CL, CO2, GLUCOSE, BUN, CREATININE, CA)2021-10-08 05:38:11 Test Item Value Reference Range Interpretation Comments NA (test code = 132 mmol/L 135-145 L 7827038436) K (test code = 4.7 mmol/L 3.5-5.0 0795996332) CL (test code = 107 mmol/L 98-108 8655233018) CO2 TOTAL (test code = 20 mmol/L 23-31 L 2979860844) AGAP (test code = 2-16 7130180259) BUN (test code = 8 mg/dL 7-23 4665602034) GLUCOSE (test code = 322 mg/dL 70-110 H 0926393728) CREATININE (test code = 0.65 mg/dL 0.50-1.04 1304359653) CALCIUM (test code = 7.7 mg/dL 8.6-10.6 L 3052347829) eGFR (test code = mL/min/1.73m2 7184825571) MICKY (test code = MICKY) Association of [...] tests). Lab Interpretation Abnormal (test code = 45705-3) [facility] 05:38:11 Test Item Value Reference Range Interpretation Comments MAGNESIUM (test code = 4191516371) 1.6 mg/dL 1.7-2.4 L Lab Interpretation (test code = Abnormal 05997-9) [facility] (NA, K, CL, CO2, GLUCOSE, BUN, CREATININE, CA)2021-10-08 05:38:11 Test Item Value Reference Range Interpretation Comments NA (test code = 132 mmol/L 135-145 L 7908434994) K (test code = 4.7 mmol/L 3.5-5.0 2162028995) CL (test code = 107 mmol/L 98-108 0443315517) CO2 TOTAL (test code = 20 mmol/L 23-31 L 3579402832) AGAP (test code = 2-16 8386083588) BUN (test code = 8 mg/dL 7-23 4541105226) GLUCOSE (test code = 322 mg/dL 70-110 H 2510722670) CREATININE (test code = 0.65 mg/dL 0.50-1.04 2755945208) CALCIUM (test code = 7.7 mg/dL 8.6-10.6 L 5163763654) eGFR (test code = mL/min/1.73m2 3146899608) MICKY (test code = MICKY) Association of [...] tests). Lab Interpretation Abnormal (test code = 27114-9) [facility] 05:38:11 Test Item Value Reference Range Interpretation Comments MAGNESIUM (test code = 1064513471) 1.6 mg/dL 1.7-2.4 L Lab Interpretation (test code = Abnormal 73973-3) [facility] (NA, K, CL, CO2, GLUCOSE, BUN, CREATININE, CA)2021-10-08 05:38:11 Test Item Value Reference Range Interpretation Comments NA (test code = 132 mmol/L 135-145 L 1607405486) K (test code = 4.7 mmol/L 3.5-5.0 2032739787) CL (test code = 107 mmol/L 98-108 3345675151) CO2 TOTAL (test code = 20 mmol/L 23-31 L 3277908848) AGAP (test code = 2-16 4820375161) BUN (test code = 8 mg/dL 7-23 8696184786) GLUCOSE (test code = 322 mg/dL 70-110 H 7708203429) CREATININE (test code = 0.65 mg/dL 0.50-1.04 1196432567) CALCIUM (test code = 7.7 mg/dL 8.6-10.6 L 2520502640) eGFR (test code = mL/min/1.73m2 7839793190) MICKY (test code = MICKY) Association of [...] tests). Lab Interpretation Abnormal (test code = 32515-3) [facility] Test Item Value Reference Range Interpretation Comments MAGNESIUM (test code = 4825877084) 1.6 mg/dL 1.7-2.4 L Lab Interpretation (test code = Abnormal 91970-8) [facility] WITH [id number] 04:49:24 Test Item Value Reference Range Interpretation [...] (test code = 59.6 fL 39.0-49.9 H 43579-2) RDW-CV (test code = 17.4 % 12.0-15.5 H 788-0) PLT (test code = See_Comment [Automated 777-3) message] The sy stem which generated this result transmitted reference range : 166 - 358 10*3/ ?L. The reference r ussan was not used to interpret this result as normal/abnormal . MPV (test code = 11.5 fL 9.5-12.9 65294-7) NRBC/100 WBC (test See_Comment [Automat ed code = 2367392061) message] The system which generated this result transmitted reference range : 0.0 - 10.0 /100 WBCs. The refer ence range was not u sed to interpret th is result as normal/abnormal . NRBC x10^3 (test code <0.01 See_Comment [Auto mated = 3312561434) message] The s ystem which generated this result transmitted reference range : 10*3/?L. The reference range was not used to interpret this result as normal/abnormal . GRAN MAT (NEUT) % 90.2 % (test code = 770-8) IMM GRAN % (test code 0.60 % = 6442830908) LYMPH % (test code = 3.9 % 736-9) MONO % (test code = 5.2 % 5905-5) EOS % (test code = 0.0 % 713-8) BASO % (test code = 0.1 % 706-2) GRAN MAT x10^3(ANC) 8.42 10*3/uL 1.88-7.09 H (test code = 7046491474) IMM GRAN x10^3 (test 0.06 10*3/uL 0.00-0.06 code = 8565699091) LYMPH x10^3 (test code 0.36 10*3/uL 1.32-3.29 L = 731-0) MONO x10^3 (test code 0.49 10*3/uL 0.33-0.92 = 742-7) EOS x10^3 (test code = <0.03 0.03-0.39 L 711-2) BASO x10^3 (test code <0.03 0.01-0.07 = 704-7) Lab Interpretation Abnormal (test code = 05893-1) [facility] WITH [id number] 04:49:24 Test Item Value Reference Range Interpretation Comments WBC (test code = See_Comment [Automated 8890-2) message] The sy stem which generated this result transmitted reference range : 4.30 - 11.10 10*3/?L. The reference range was not used to interpret this result as normal/abnormal . RBC (test code = See_Comment L [Automated 749-8) message] The sy stem which generated this [...] (test code = 59.6 fL 39.0-49.9 H 27607-7) RDW-CV (test code = 17.4 % 12.0-15.5 H 788-0) PLT (test code = See_Comment [Automated 777-3) message] The sy stem which generated this result transmitted reference range : 166 - 358 10*3/ ?L. The reference r susan was not used to interpret this result as normal/abnormal . MPV (test code = 11.5 fL 9.5-12.9 92781-2) NRBC/100 WBC (test See_Comment [Automat ed code = 0155581701) message] The system which generated this result transmitted reference range : 0.0 - 10.0 /100 WBCs. The refer ence range was not u sed to interpret th is result as normal/abnormal . NRBC x10^3 (test code <0.01 See_Comment [Auto mated = 8639627543) message] The s ystem which generated this result transmitted reference range : 10*3/?L. The reference range was not used to interpret this result as normal/abnormal . GRAN MAT (NEUT) % 90.2 % (test code = 770-8) IMM GRAN % (test code 0.60 % = 5645354336) LYMPH % (test code = 3.9 % 736-9) MONO % (test code = 5.2 % 5905-5) EOS % (test code = 0.0 % 713-8) BASO % (test code = 0.1 % 706-2) GRAN MAT x10^3(ANC) 8.42 10*3/uL 1.88-7.09 H (test code = 3927172008) IMM GRAN x10^3 (test 0.06 10*3/uL 0.00-0.06 code = 6365750199) LYMPH x10^3 (test code 0.36 10*3/uL 1.32-3.29 L = 731-0) MONO x10^3 (test code 0.49 10*3/uL 0.33-0.92 = 742-7) EOS x10^3 (test code = <0.03 0.03-0.39 L 711-2) BASO x10^3 (test code <0.03 0.01-0.07 = 704-7) Lab Interpretation Abnormal (test code = 13123-3) [facility] WITH [id number] 04:49:24 Test Item Value Reference Range Interpretation [...] (test code = 59.6 fL 39.0-49.9 H 68675-1) RDW-CV (test code = 17.4 % 12.0-15.5 H 788-0) PLT (test code = See_Comment [Automated 777-3) message] The sy stem which generated this result transmitted reference range : 166 - 358 10*3/ ?L. The reference r susan was not used to interpret this result as normal/abnormal . MPV (test code = 11.5 fL 9.5-12.9 39193-6) NRBC/100 WBC (test See_Comment [Automat ed code = 5013501879) message] The system which generated this result transmitted reference range : 0.0 - 10.0 /100 WBCs. The refer ence range was not u sed to interpret th is result as normal/abnormal . NRBC x10^3 (test code <0.01 See_Comment [Auto mated = 6543275745) message] The s ystem which generated this result transmitted reference range : 10*3/?L. The reference range was not used to interpret this result as normal/abnormal . GRAN MAT (NEUT) % 90.2 % (test code = 770-8) IMM GRAN % (test code 0.60 % = 3515053598) LYMPH % (test code = 3.9 % 736-9) MONO % (test code = 5.2 % 5905-5) EOS % (test code = 0.0 % 713-8) BASO % (test code = 0.1 % 706-2) GRAN MAT x10^3(ANC) 8.42 10*3/uL 1.88-7.09 H (test code = [id number]) IMM GRAN x10^3 (test 0.06 10*3/uL 0.00-0.06 code = [id number]) LYMPH x10^3 (test code 0.36 10*3/uL 1.32-3.29 L = 731-0) MONO x10^3 (test code 0.49 10*3/uL 0.33-0.92 = 742-7) EOS x10^3 (test code = <0.03 0.03-0.39 L 711-2) BASO x10^3 (test code <0.03 0.01-0.07 = 704-7) Lab Interpretation Abnormal (test code = 49012-8) [facility]), 1 Units 2021-10-08 04:27:22 Test Item Value Reference Range Interpretation Comments Cross Match Result Compatible (test code = 4409) ISBT Blood Type Code (test code = 277750) Unit Blood Type (test A Pos code = 4410) Unit Number (test [id number] code = 4411) Blood Expiration Date & Time (test code = 629404) Status Information Issued (test code = 4412) Product Red Blood Cells Identification (test code = 4413) Product Code (test J1284Q79 Performed at [facility] code = 4414) Laboratory Services - [facility] Blood [address] [address]Jnrd Free: [phone] A No. [id number] [facility] Packed RBC (in units), 1 Units 2021-10-08 04:27:22 Test Item Value Reference Range Interpretation Comments Cross Match Result Compatible (test code = 4409) ISBT Blood Type Code (test code = 350759) Unit Blood Type (test A Pos code = 4410) Unit Number (test [id number] code = 4411) Blood Expiration Date & Time (test code = 231329) Status Information Issued (test code = 4412) Product Red Blood Cells Identification (test code = 4413) Product Code (test O5445L86 Performed at [facility] code = 4414) Laboratory Services - [address] [address]Mfwd Free: [phone] A No. [id number] [facility] Packed RBC (in units), 1 Units 2021-10-08 04:27:22 Test Item Value Reference Range Interpretation Comments Cross Match Result Compatible (test code = 4409) ISBT Blood Type Code (test code = 093125) Unit Blood Type (test A Pos code = 4410) Unit Number (test [id number] code = 4411) Blood Expiration Date & Time (test code = 281682) Status Information Issued (test code = 4412) Product Red Blood Cells Identification (test code = 4413) Product Code (test J1929Q56 Performed at [facility] code = 4414) Laboratory Services - [address] [address]Kiht Free: [phone] A No. [id number] [facility] GLUCOSE (AUTOMATED)2021-10-08 03:52:59 Test Item Value Reference Range Interpretation Comments POCT GLU (test code = 9076219761) 261 mg/dL 70-110 H Lab Interpretation (test code = Abnormal 68953-9) [facility] GLUCOSE (AUTOMATED)2021-10-08 03:52:59 Test Item Value Reference Range Interpretation Comments POCT GLU (test code = 4527578481) 261 mg/dL 70-110 H Lab Interpretation (test code = Abnormal 82435-4) [facility] GLUCOSE (AUTOMATED)2021-10-08 03:52:59 Test Item Value Reference Range Interpretation Comments POCT GLU (test code = 5907738104) 261 mg/dL 70-110 H Lab Interpretation (test code = Abnormal 14878-2) [facility] WITH [id number] 00:07:18 Test Item Value Reference Range Interpretation [...] (test code = 60.2 fL 39.0-49.9 H 62343-8) RDW-CV (test code = 17.7 % 12.0-15.5 H 788-0) PLT (test code = See_Comment [Automated 777-3) message] The sy stem which generated this result transmitted reference range : 166 - 358 10*3/ ?L. The reference r susan was not used to interpret this result as normal/abnormal . MPV (test code = 11.6 fL 9.5-12.9 97193-1) NRBC/100 WBC (test See_Comment [Automat ed code = 5455189139) message] The system which generated this result transmitted reference range : 0.0 - 10.0 /100 WBCs. The refer ence range was not u sed to interpret th is result as normal/abnormal . NRBC x10^3 (test code <0.01 See_Comment [Auto mated = 4114744994) message] The s ystem which generated this result transmitted reference range : 10*3/?L. The reference range was not used to interpret this result as normal/abnormal . GRAN MAT (NEUT) % 93.5 % (test code = 770-8) IMM GRAN % (test code 0.80 % = 0382669116) LYMPH % (test code = 3.4 % 736-9) MONO % (test code = 2.2 % 5905-5) EOS % (test code = 0.0 % 713-8) BASO % (test code = 0.1 % 706-2) GRAN MAT x10^3(ANC) 9.81 10*3/uL 1.88-7.09 H (test code = 9348069336) IMM GRAN x10^3 (test 0.08 10*3/uL 0.00-0.06 H code = 1900138525) LYMPH x10^3 (test code 0.36 10*3/uL 1.32-3.29 L = 731-0) MONO x10^3 (test code 0.23 10*3/uL 0.33-0.92 L = 742-7) EOS x10^3 (test code = <0.03 0.03-0.39 L 711-2) BASO x10^3 (test code <0.03 0.01-0.07 = 704-7) Lab Interpretation Abnormal (test code = 61607-6) [facility] WITH [id number] 00:07:18 Test Item Value Reference Range Interpretation Comments WBC (test code = See_Comment [Automated 6690-2) message] The sy stem which generated this result transmitted reference range : 4.30 - 11.10 10*3/?L. The reference range was not used to interpret this result as normal/abnormal . RBC (test code = See_Comment L [Automated 839-8) message] The sy stem which generated this [...] (test code = 60.2 fL 39.0-49.9 H 70440-6) RDW-CV (test code = 17.7 % 12.0-15.5 H 788-0) PLT (test code = See_Comment [Automated 777-3) message] The sy stem which generated this result transmitted reference range : 166 - 358 10*3/ ?L. The reference r susan was not used to interpret this result as normal/abnormal . MPV (test code = 11.6 fL 9.5-12.9 11913-4) NRBC/100 WBC (test See_Comment [Automat ed code = 2446639715) message] The system which generated this result transmitted reference range : 0.0 - 10.0 /100 WBCs. The refer ence range was not u sed to interpret th is result as normal/abnormal . NRBC x10^3 (test code <0.01 See_Comment [Auto mated = 0644061429) message] The s ystem which generated this result transmitted reference range : 10*3/?L. The reference range was not used to interpret this result as normal/abnormal . GRAN MAT (NEUT) % 93.5 % (test code = 770-8) IMM GRAN % (test code 0.80 % = 7140481907) LYMPH % (test code = 3.4 % 736-9) MONO % (test code = 2.2 % 5905-5) EOS % (test code = 0.0 % 713-8) BASO % (test code = 0.1 % 706-2) GRAN MAT x10^3(ANC) 9.81 10*3/uL 1.88-7.09 H (test code = 4272264557) IMM GRAN x10^3 (test 0.08 10*3/uL 0.00-0.06 H code = 0287501620) LYMPH x10^3 (test code 0.36 10*3/uL 1.32-3.29 L = 731-0) MONO x10^3 (test code 0.23 10*3/uL 0.33-0.92 L = 742-7) EOS x10^3 (test code = <0.03 0.03-0.39 L 711-2) BASO x10^3 (test code <0.03 0.01-0.07 = 704-7) Lab Interpretation Abnormal (test code = 46108-6) [facility] WITH [id number] 00:07:18 Test Item Value Reference Range Interpretation [...] (test code = 60.2 fL 39.0-49.9 H 14528-2) RDW-CV (test code = 17.7 % 12.0-15.5 H 788-0) PLT (test code = See_Comment [Automated 777-3) message] The sy stem which generated this result transmitted reference range : 166 - 358 10*3/ ?L. The reference r susan was not used to interpret this result as normal/abnormal . MPV (test code = 11.6 fL 9.5-12.9 16342-0) NRBC/100 WBC (test See_Comment [Automat ed code = 9033011088) message] The system which generated this result transmitted reference range : 0.0 - 10.0 /100 WBCs. The refer ence range was not u sed to interpret th is result as normal/abnormal . NRBC x10^3 (test code <0.01 See_Comment [Auto mated = 9741180485) message] The s ystem which generated this result transmitted reference range : 10*3/?L. The reference range was not used to interpret this result as normal/abnormal . GRAN MAT (NEUT) % 93.5 % (test code = 770-8) IMM GRAN % (test code 0.80 % = 2955456983) LYMPH % (test code = 3.4 % 736-9) MONO % (test code = 2.2 % 5905-5) EOS % (test code = 0.0 % 713-8) BASO % (test code = 0.1 % 706-2) GRAN MAT x10^3(ANC) 9.81 10*3/uL 1.88-7.09 H (test code = 7257678913) IMM GRAN x10^3 (test 0.08 10*3/uL 0.00-0.06 H code = 5825546773) LYMPH x10^3 (test code 0.36 10*3/uL 1.32-3.29 L = 731-0) MONO x10^3 (test code 0.23 10*3/uL 0.33-0.92 L = 742-7) EOS x10^3 (test code = <0.03 0.03-0.39 L 711-2) BASO x10^3 (test code <0.03 0.01-0.07 = 704-7) Lab Interpretation Abnormal (test code = 24787-5) [facility] (in units), 2 Units 2021-10-07 21:08:55 Test Item Value Reference Range Interpretation Comments Cross Match Result Compatible (test code = 4409) ISBT Blood Type Code (test code = 911291) Unit Blood Type (test A Pos code = 4410) Unit Number (test [id number] code = 4411) Blood Expiration Date & Time (test code = 797077) Status Information Issued (test code = 4412) Product Red Blood Cells Identification (test code = 4413) Product Code (test M8064V18 Performed at [facility] code = 4414) Laboratory Services [facility] Blood [address] [address]Oycv Free: [phone] A No. [id number] [facility] Packed RBC (in units), 2 Units 2021-10-07 21:08:55 Test Item Value Reference Range Interpretation Comments Cross Match Result Compatible (test code = 4409) ISBT Blood Type Code (test code = 374469) Unit Blood Type (test A Pos code = 4410) Unit Number (test [id number] code = 4411) Blood Expiration Date & Time (test code = 025238) Status Information Issued (test code = 4412) Product Red Blood Cells Identification (test code = 4413) Product Code (test L5620P29 Performed at [facility] code = 4414) Laboratory Services [address] [address]Adxm Free: [phone] A No. [id number] [facility] Packed RBC (in units), 2 Units 2021-10-07 21:08:55 Test Item Value Reference Range Interpretation Comments Cross Match Result Compatible (test code = 4409) ISBT Blood Type Code (test code = 803972) Unit Blood Type (test A Pos code = 4410) Unit Number (test [id number] code = 4411) Blood Expiration Date & Time (test code = 820993) Status Information Issued (test code = 4412) Product Red Blood Cells Identification (test code = 4413) Product Code (test P2119P44 Performed at [facility] code = 4414) Laboratory Services [facility] Blood [address] [address]Innm Free: [phone] A No. [id number] [facility]. METABOLIC PANEL (21197)2021-10-07 12:06:32 Test Item Value Reference Range Interpretation Comments NA (test code = 139 mmol/L 135-145 5435070389) K (test code = 4.1 mmol/L 3.5-5.0 8826890286) CL (test code = 110 mmol/L 98-108 H 0240218806) CO2 TOTAL (test code = 24 mmol/L 23-31 8553329975) AGAP (test code = 2-16 1481426298) BUN (test code = 6 mg/dL 7-23 L 0993928160) GLUCOSE (test code = 95 mg/dL 70-110 2892038505) CREATININE (test code = 0.48 mg/dL 0.50-1.04 L 8429532764) TOTAL BILI (test code = 0.3 mg/dL 0.1-1.1 1816670900) CALCIUM (test code = 8.2 mg/dL 8.6-10.6 L 8797249935) T PROTEIN (test code = 6.3 g/dL 6.3-8.2 3214831854) ALBUMIN (test code = 3.2 g/dL 3.5-5.0 L 9991909517) ALK PHOS (test code = 60 U/L 34-122 7353969379) ALTv (test code = 12 U/L 5-35 1742-6) AST(SGOT) (test code = 19 U/L 13-40 6448558334) eGFR (test code = mL/min/1.73m2 8514535249) MICKY (test code = MICKY) Association of [...] tests). Lab Interpretation Abnormal (test code = 09446-9) [facility]. METABOLIC PANEL (50152)2021-10-07 12:06:32 Test Item Value Reference Range Interpretation Comments NA (test code = 139 mmol/L 135-145 0775531741) K (test code = 4.1 mmol/L 3.5-5.0 9594963629) CL (test code = 110 mmol/L 98-108 H 4865069522) CO2 TOTAL (test code = 24 mmol/L 23-31 6508652296) AGAP (test code = 2-16 6054126383) BUN (test code = 6 mg/dL 7-23 L 4036358123) GLUCOSE (test code = 95 mg/dL 70-110 0247930977) CREATININE (test code = 0.48 mg/dL 0.50-1.04 L 9382560019) TOTAL BILI (test code = 0.3 mg/dL 0.1-1.3 4462972449) CALCIUM (test code = 8.2 mg/dL 8.6-10.6 L 6268989490) T PROTEIN (test code = 6.3 g/dL 6.3-8.2 3444794343) ALBUMIN (test code = 3.2 g/dL 3.5-5.0 L 6233053920) ALK PHOS (test code = 60 U/L 34-122 3954543042) ALTv (test code = 12 U/L 5-35 1742-6) AST(SGOT) (test code = 19 U/L 13-40 4149855030) eGFR (test code = mL/min/1.73m2 5072572273) MICKY (test code = MICKY) Association of [...] tests). Lab Interpretation Abnormal (test code = 80928-3) [facility]. METABOLIC PANEL (71817)2021-10-07 12:06:32 Test Item Value Reference Range Interpretation Comments NA (test code = 139 mmol/L 135-145 8842404771) K (test code = 4.1 mmol/L 3.5-5.0 0343537475) CL (test code = 110 mmol/L 98-108 H 2393331092) CO2 TOTAL (test code = 24 mmol/L 23-31 5739274239) AGAP (test code = 2-16 2412197227) BUN (test code = 6 mg/dL 7-23 L 4678127739) GLUCOSE (test code = 95 mg/dL 70-110 9266129878) CREATININE (test code = 0.48 mg/dL 0.50-1.04 L 9444873035) TOTAL BILI (test code = 0.3 mg/dL 0.1-1.6 9070979986) CALCIUM (test code = 8.2 mg/dL 8.6-10.6 L 6915021241) T PROTEIN (test code = 6.3 g/dL 6.3-8.2 3984413051) ALBUMIN (test code = 3.2 g/dL 3.5-5.0 L 9045291611) ALK PHOS (test code = 60 U/L 34-122 6664421711) ALTv (test code = 12 U/L 5-35 1742-6) AST(SGOT) (test code = 19 U/L 13-40 6544503314) eGFR (test code = mL/min/1.73m2 4690612438) MICKY (test code = MICKY) Association of [...] tests). Lab Interpretation Abnormal (test code = 96959-4) [facility] Time / [id number] 00:45:45 Test Item Value Reference Range Interpretation Comments PROTIME PATIENT (test See_Comment H [Auto mated message] code = 5964-2) The system [employer] generated this result transmitted ref erence range: 10.1 - 1 2.6 Seconds. The reference range was not used to int erpret this result as normal/abnormal . INR (test code = 6301-6) Nor mal INR <1.1; Warfarin Therap eutic range 2.0 to 3. 0 or 2.5 to 3.5, dep ending upon the indica tions. Lab Interpretation (test Abnormal code = 56508-1) [facility] [id number] 00:45:45 Test Item Value Reference Range Interpretation Comments APTT Patient (test code See_Comment L [Au tomated message] = 3173-2) The system [employer]ones generated this result transmitted ref erence range: 26 - 36 Seconds. The reference range was not used to int erpret this result as normal/abnormal . Lab Interpretation (test Abnormal code = 34876-5) [facility]EN2022-06-23 00:45:45 Test Item Value Reference Range Interpretation Comments Fibrinogen (test code = 1901156699) 306 mg/dL 167-453 Lab Interpretation (test code = Normal 44188-5) [facility] Time / [id number] 00:45:45 Test Item Value Reference Range Interpretation Comments PROTIME PATIENT (test See_Comment H [Auto mated message] code = 5964-2) The system [employer] generated this result transmitted ref erence range: 10.1 - 1 2.6 Seconds. The reference range was not used to int erpret this result as normal/abnormal . INR (test code = 6301-6) Nor mal INR <1.1; Warfarin Therap eutic range 2.0 to 3. 0 or 2.5 to 3.5, dep ending upon the indica tions. Lab Interpretation (test Abnormal code = 61020-4) [facility] [id number] 00:45:45 Test Item Value Reference Range Interpretation Comments APTT Patient (test code See_Comment L [Au tomated message] = 3173-2) The system sones generated this result transmitted ref erence range: 26 - 36 Seconds. The reference range was not used to int erpret this result as normal/abnormal . Lab Interpretation (test Abnormal code = 86446-3) [facility]2022-06-23 00:45:45 Test Item Value Reference Range Interpretation Comments Fibrinogen (test code = 4891195671) 306 mg/dL 167-453 Lab Interpretation (test code = Normal 83947-0) [facility] Time / [id number] 00:45:45 Test Item Value Reference Range Interpretation Comments PROTIME PATIENT (test See_Comment H [Auto mated message] code = 5964-2) The system [employer] generated this result transmitted ref erence range: 10.1 - 1 2.6 Seconds. The reference range was not used to int erpret this result as normal/abnormal . INR (test code = 6301-6) Nor mal INR <1.1; Warfarin Therap eutic range 2.0 to 3. 0 or 2.5 to 3.5, dep ending upon the indica tions. Lab Interpretation (test Abnormal code = 10398-7) [facility] [id number] 00:45:45 Test Item Value Reference Range Interpretation Comments APTT Patient (test code See_Comment L [Au tomated message] = 3173-2) The system sones generated this result transmitted ref erence range: 26 - 36 Seconds. The reference range was not used to int erpret this result as normal/abnormal . Lab Interpretation (test Abnormal code = 89642-6) [facility]2022-[facility]-23 00:45:45 Test Item Value Reference Range Interpretation Comments Fibrinogen (test code = 3712186846) 306 mg/dL 167-453 Lab Interpretation (test code = Normal 75981-4) [facility] WITH [id number] 00:39:06 Test Item Value Reference Range Interpretation [...] (test code = 62.5 fL 39.0-49.9 H 19337-6) RDW-CV (test code = 19.2 % 12.0-15.5 H 788-0) PLT (test code = See_Comment L [Automated 777-3) message] The sy stem which generated this result transmitted reference range : 166 - 358 10*3/ ?L. The reference r susan was not used to interpret this result as normal/abnormal . MPV (test code = 10.4 fL 9.5-12.9 31406-9) NRBC/100 WBC (test See_Comment [Automat ed code = 2593650617) message] The system which generated this result transmitted reference range : 0.0 - 10.0 /100 WBCs. The refer ence range was not u sed to interpret th is result as normal/abnormal . NRBC x10^3 (test code <0.01 See_Comment [Auto mated = 7141576001) message] The s ystem which generated this result transmitted reference range : 10*3/?L. The reference range was not used to interpret this result as normal/abnormal . GRAN MAT (NEUT) % 64.9 % (test code = 770-8) IMM GRAN % (test code 0.40 % = 7828343383) LYMPH % (test code = 24.5 % 736-9) MONO % (test code = 6.8 % 5905-5) EOS % (test code = 3.0 % 713-8) BASO % (test code = 0.4 % 706-2) GRAN MAT x10^3(ANC) 3.23 10*3/uL 1.88-7.09 (test code = 0646711607) IMM GRAN x10^3 (test <0.03 0.00-0.06 code = 0843274686) LYMPH x10^3 (test code 1.22 10*3/uL 1.32-3.29 L = 731-0) MONO x10^3 (test code 0.34 10*3/uL 0.33-0.92 = 742-7) EOS x10^3 (test code = 0.15 10*3/uL 0.03-0.39 711-2) BASO x10^3 (test code <0.03 0.01-0.07 = 704-7) Lab Interpretation Abnormal (test code = 93807-4) [facility] WITH [id number] 00:39:06 Test Item Value Reference Range Interpretation Comments WBC (test code = See_Comment [Automated 1990-2) message] The sy stem which generated this result transmitted reference range : 4.30 - 11.10 10*3/?L. The reference range was not used to interpret this result as normal/abnormal . RBC (test code = See_Comment L [Automated 889-8) message] The sy stem which generated this [...] (test code = 62.5 fL 39.0-49.9 H 93500-3) RDW-CV (test code = 19.2 % 12.0-15.5 H 788-0) PLT (test code = See_Comment L [Automated 777-3) message] The sy stem which generated this result transmitted reference range : 166 - 358 10*3/ ?L. The reference r susan was not used to interpret this result as normal/abnormal . MPV (test code = 10.4 fL 9.5-12.9 77408-6) NRBC/100 WBC (test See_Comment [Automat ed code = 1068359467) message] The system which generated this result transmitted reference range : 0.0 - 10.0 /100 WBCs. The refer ence range was not u sed to interpret th is result as normal/abnormal . NRBC x10^3 (test code <0.01 See_Comment [Auto mated = 7484645271) message] The s ystem which generated this result transmitted reference range : 10*3/?L. The reference range was not used to interpret this result as normal/abnormal . GRAN MAT (NEUT) % 64.9 % (test code = 770-8) IMM GRAN % (test code 0.40 % = 8814266787) LYMPH % (test code = 24.5 % 736-9) MONO % (test code = 6.8 % 5905-5) EOS % (test code = 3.0 % 713-8) BASO % (test code = 0.4 % 706-2) GRAN MAT x10^3(ANC) 3.23 10*3/uL 1.88-7.09 (test code = 1147533633) IMM GRAN x10^3 (test <0.03 0.00-0.06 code = 8606051035) LYMPH x10^3 (test code 1.22 10*3/uL 1.32-3.29 L = 731-0) MONO x10^3 (test code 0.34 10*3/uL 0.33-0.92 = 742-7) EOS x10^3 (test code = 0.15 10*3/uL 0.03-0.39 711-2) BASO x10^3 (test code <0.03 0.01-0.07 = 704-7) Lab Interpretation Abnormal (test code = 04914-2) [facility] WITH [id number] 00:39:06 Test Item Value Reference Range Interpretation [...] (test code = 62.5 fL 39.0-49.9 H 08985-8) RDW-CV (test code = 19.2 % 12.0-15.5 H 788-0) PLT (test code = See_Comment L [Automated 777-3) message] The sy stem which generated this result transmitted reference range : 166 - 358 10*3/ ?L. The reference r susan was not used to interpret this result as normal/abnormal . MPV (test code = 10.4 fL 9.5-12.9 46359-4) NRBC/100 WBC (test See_Comment [Automat ed code = 6384404682) message] The system which generated this result transmitted reference range : 0.0 - 10.0 /100 WBCs. The refer ence range was not u sed to interpret th is result as normal/abnormal . NRBC x10^3 (test code <0.01 See_Comment [Auto mated = 6346463774) message] The s ystem which generated this result transmitted reference range : 10*3/?L. The reference range was not used to interpret this result as normal/abnormal . GRAN MAT (NEUT) % 64.9 % (test code = 770-8) IMM GRAN % (test code 0.40 % = 8964722928) LYMPH % (test code = 24.5 % 736-9) MONO % (test code = 6.8 % 5905-5) EOS % (test code = 3.0 % 713-8) BASO % (test code = 0.4 % 706-2) GRAN MAT x10^3(ANC) 3.23 10*3/uL 1.88-7.09 (test code = 8525964561) IMM GRAN x10^3 (test <0.03 0.00-0.06 code = 4329124547) LYMPH x10^3 (test code 1.22 10*3/uL 1.32-3.29 L = 731-0) MONO x10^3 (test code 0.34 10*3/uL 0.33-0.92 = 742-7) EOS x10^3 (test code = 0.15 10*3/uL 0.03-0.39 711-2) BASO x10^3 (test code <0.03 0.01-0.07 = 704-7) Lab Interpretation Abnormal (test code = 99540-5) [facility] - ONCE [id number] 21:53:57 Test Item Value Reference Range Interpretation Comments ABO & RH (test code A POSITIVE Performe d at [facility] = 20) Laboratory Serv [facility] Blood Bank3 [address] [facility] s [address]Otdn Free: [phone] A No. [id number] IAT (test code = Negative Performed a t [facility] 1185) Laboratory Serv [facility] Blood Bank3 [address] [facility] s [address]Pmmu Free: [phone] A No. [id number] [facility] - This is a pre-surgical type and screen. ONCE [id number] 21:53:57 Test Item Value Reference Range Interpretation Comments ABO & RH (test code A POSITIVE Performe d at [facility] = 20) Laboratory [facility] Blood [facility] [place] [address] s [address]Dfaf Free: [phone] A No. [id number] IAT (test code = Negative Performed a t [facility] 1185) Laboratory [facility] Blood [address] s [address]Otvb Free: [phone] A No. [id number] [facility] BranchType and Screen - ONCE [id number] 21:53:57 Test Item Value Reference Range Interpretation Comments ABO & RH (test code A POSITIVE Performe d at [facility] = 20) Laboratory [facility] Blood [address] s [address]Jgjf Free: [phone] A No. [id number] IAT (test code = Negative Performed a t [facility] 1185) Laboratory [facility] Blood [address] s [address]Vfgg Free: [phone] A No. [id number] [facility] BranchType and Screen - This is a pre-surgical type and screen. ONCE [id number] 21:53:57 Test Item Value Reference Range Interpretation Comments ABO & RH (test code A POSITIVE Performe d at [facility] = 20) Laboratory [facility] Blood [facility] [place] [address] s [address]Iurq Free: [phone] A No. [id number] IAT (test code = Negative Performed a t [facility] 1185) Laboratory [facility] Blood [address] [place] [address] s [address]Qtih Free: [phone] A No. [id number] [facility] BranchType and Screen - ONCE [id number] 21:53:57 Test Item Value Reference Range Interpretation Comments ABO & RH (test code A POSITIVE Performe d at [facility] = 20) Laboratory [facility] Blood Bank3 [address] [facility] s [id number] Free: [phone] A No. [id number] IAT (test code = Negative Performed a t [facility] 1185) Laboratory [facility] Blood [facility] [place] [address] s [id number] Free: [phone] A No. [id number] [facility] - This is a pre-surgical type and screen. ONCE [id number] 21:53:57 Test Item Value Reference Range Interpretation Comments ABO & RH (test code A POSITIVE Performe d at [facility] = 20) Laboratory [facility] Blood [facility] [place] [address] s [id number] Free: [phone] A No. [id number] IAT (test code = Negative Performed a t [facility] 1185) Laboratory [facility] Blood [facility] [place] [address] s [address]Sgwt Free: [phone] A No. [id number] [facility] [id number] 20:12:00 Test Item Value Reference Range Interpretation Comments POCT PREG (test code = 1605) Negative On board controls acceptable with C Yes Line (test code = 3574) POCT PREG LOT # (test code = 3575) POCT PREG TEST DATE (test code = 3576) [facility] [id number] 20:12:00 Test Item Value Reference Range Interpretation Comments POCT PREG (test code = 1605) Negative On board controls acceptable with C Yes Line (test code = 3574) POCT PREG LOT # (test code = 3575) POCT PREG TEST DATE (test code = 3576) [facility] [id number] 20:12:00 Test Item Value Reference Range Interpretation Comments POCT PREG (test code = 1605) Negative On board controls acceptable with C Yes Line (test code = 3574) POCT PREG LOT # (test code = 3575) POCT PREG TEST DATE (test code = 3576) [facility] W/AUTO [id number] 08:31:00 Test Item Value Reference Range Interpretation [...] REQUIRED (test code = PLTMR) CBC W/AUTO [id number] 13:59:00 Test Item Value Reference Range Interpretation [...] STEVE.RE AD BACK & CONFIRME D? Y.BY [id number] 05/04/21 1356 IMMATURE PLATELET 6.0 % 0.0-10.8 [...] REQUIRED (test code = PLTMR) CBC W/AUTO [id number] 00:52:00 Test Item Value Reference Range Interpretation Comments WHITE BLOOD CELL (test 6.5 K/mm3 6.5-12.3 N code = WBC) RED BLOOD CELL (test 2.45 M/mm3 3.51-4.69 L code = RBC) HEMOGLOBIN (test code = 6.4 g/dL 10.1-13.8 LL RESU LTS CALLED TO HGB) CLIFFORD VILLAGOMEZ AD BACK & CONFIRME D? YBY [id number] 05/04/21 0025 HEMATOCRIT (test code = 21.5 [...] REQUIRED (test code = PLTMR) COMPREHENSIVE METABOLIC [id number] 00:38:00 Test Item Value Reference Range Interpretation [...] units/L 46-116 N code = ALKP) PROTHROMBIN [id number] 00:35:00 Test Item Value Reference Range Interpretation Comments PROTHROMBIN TIME PATIENT (test code 13.6 secs 10.1-12.3 H = PTP) THROMBOPLASTIN TIME [id number] 00:35:00 Test Item Value Reference Range Interpretation Comments THROMBOPLASTIN TIME PARTIAL (test 30.6 secs 22-38 N code = PTT) - DUP AB/PEL/SC/[id number] 00:00:00 [facility] : 1985 Sex: F Patient Name: SEKOU CAMPBELL Unit No: [id number] EXAMS: CPT CODE: [id number] DUP AB/PEL/SC/LTD 05271 PROCEDURE INFORMATION: Exam: US Pelvis Complete (Transabdominal), [...] by: Reza Alexandre MD [facility] NAME: SEKOU CAMPBELL Radiology Department PHYS: [facility] Chelo Ramírez MD [address] : 1985 AGE: 35 SEX: F [place] [address] LOC: F.ERS PHONE #: [phone] EXAM DATE: 05/04/2021 STATUS: REG ER FAX #: [phone] RAD NO: Page 1 Signed Report (CONTINUED) Patient Name: SEKOU CAMPBELL Unit No: [id number] EXAMS: CPT CODE: [id number] DUP AB/PEL/SC/LTD 48175 (Continued) CC: Chelo Ramírez MD Technologist: Griselda Streeter RDMS Probe: Trnscrbd D/ (0121) GCD.CPS Orig Print D/T: S: 05/04/2021 (0124) [facility] [place] NAME[facility] PHYS: [facility] - Chelo Ramírez MD [address] : 1985 AGE: 35 SEX: F [place] [address] LOC: Maya.ERS PHONE #: [phone] EXAM DATE: 05/04/2021 STATUS: REG ER FAX #: [phone] RAD NO: Page 2 Signed Report Patient Name: SEKOU CAMPBELL Unit No: [id number] EXAMS: CPT CODE: [id number] DUP AB/PEL/SC/LTD 14321 (Continued) [facility] NAME: SEKOU CAMPBELL Radiology Department PHYS: [facility] Chelo Ramírez MD [address] : 1985 AGE: 35 SEX: F [place] [address] LOC: JOSSUE PHONE #: [phone] EXAM DATE: 05/04/2021 STATUS: GERBER MCCLELLAN FAX #: [phone] RAD NO: Page 3 Signed Report- US PELVIS COMPLETE 2021-05-04 00:00:00 [facility] : 1985 Sex: F Patient Name: SEKOU CAMPBELL Unit No: [id number] EXAMS: CPT CODE: [id number] US PELVIS COMPLETE 61583 PROCEDURE INFORMATION: Exam: US Pelvis Complete (Transabdominal), [...] Reported and signed by: Reza Alexandre MD [facility] [place] NAME: SEKOU CAMPBELL Radiology Department PHYS: LASHELLMichael Chelo Ramírez MD [address] : 1985 AGE: 35 SEX: F [place], [place] [address] LOC: F.ERS PHONE #: [phone] EXAM DATE: 05/04/2021 STATUS: REG ER FAX #: [phone] RAD NO: Page 1 Signed Report (CONTINUED) Patient Name: SEKOU CAMPBELL Unit No: [id number] EXAMS: CPT CODE: [id number] US PELVIS COMPLETE 37243 (Continued) CC: Chelo Ramírez MD Technologist: Griselda Streeter RDMS Probe: Trnscrbd D/ (0121) GCD.CPS Orig Print D/T: S: 05/04/2021 (0121) [facility] NAME: SEKOU CAMPBELL Radiology Department PHYS: LASHELLJEREMY Chelo Ramírez MD [address] : 1985 AGE: 35 SEX: F [place], [place] [address] LOC: F.ERS PHONE #: [phone] EXAM DATE: 05/04/2021 STATUS: REG ER FAX #: [phone] RAD NO: Page 2 Signed Report Patient Name: SEKOU CAMPBELL Unit No: [id number] EXAMS: CPT CODE: [id number] US PELVIS COMPLETE 11062 (Continued) [facility] NAME: SEKOU CAMPBELL Radiology Department PHYS: DEMIAN Chelo Ramírez MD [address] : 1985 AGE: 35 SEX: F [place], [place] [address] LOC: F.ERS PHONE #: [phone] EXAM DATE: 05/04/2021 STATUS: REG ER FAX #: [phone] RAD NO: Page 3 Signed Report- US TRANSVAGINAL [id number] 00:00:00 [facility] : 1985 Sex: F Patient Name: SEKOU CAMPBELL Unit No: [id number] EXAMS: CPT CODE: [id number] US TRANSVAGINAL W/PELVIS 92616 PROCEDURE INFORMATION: Exam: US Pelvis Complete (Transabdominal), [...] cm. Endometrial stripe measures 6 mm. No jack rine fibroid is present. Right ovary/adnexa: The [...] and signed by: Reza Alexandre MD [facility] NAME: SEKOU CAMPBELL Radiology Department PHYS: DEMIAN.01 Chelo Vera MD [address] : 1985 AGE: 35 SEX: F [place] [address] LOC: Maya.ERS PHONE #: [phone] EXAM DATE: 05/04/2021 STATUS: REG ER FAX #: [phone] RAD NO: Page 1 Signed Report (CONTINUED) Patient Name: SEKOU CAMPBELL Unit No: [id number] EXAMS: CPT CODE: [id number] US TRANSVAGINAL W/PELVIS 34220 (Continued) CC: Chelo Ramírez MD Technologist: Griselda Streeter, [facility] Probe: [id number] Trnscrbd D/ (0121) GCD.CPS Orig Print D/T: S: 05/04/2021 (0122) [facility] NAME: SEKOU CAMPBELL Radiology Department PHYS: DEMIANAdrian Chelo Ramírez MD [address] : 1985 AGE: 35 SEX: F [place] [address] LOC: LiatERS PHONE #: [phone] EXAM DATE: 05/04/2021 STATUS: REG ER FAX #: [phone] RAD NO: Page 2 Signed Report PatientName: SEKOU CAMPBELL Unit No: [id number] EXAMS: CPT CODE: [id number] US TRANSVAGINAL [id number] (Continued) [facility] NAME: SEKOU CAMPBELL Radiology Department PHYS: LASHELLKIMBERLEEPercyAdrianChelo Nelson MD [address] : 1985 AGE: 35 SEX: F [place] [address] LOC: Maya.ERS PHONE #: [phone] EXAM DATE: 05/04/2021 STATUS: REG ER FAX #: [phone] RAD NO: Page 3 Signed Report- [facility] VEIN [id number] 08:04:00 [facility] : 1985 Sex: F Patient Name: SEKOU CAMPBELL Unit No: [id number] EXAMS: CPT CODE: [id number] DUP VEIN [id number] BILATERAL LOWER EXTREMITY DUPLEX VENOUS DOPPLER ULTRASOUND, [...] D/T: S: 05/04/2020 (0807) [facility] NAME: SEKOU CAMPBELL Radiology Department PHYS: Magdalena Borrego MD [address] : 1985 AGE: 34 SEX: F [place] [address] LOC: LiatIC4 Chip PHONE #: [phone] EXAM DATE: 05/04/2020 STATUS: ADM IN FAX #: [phone] RAD NO: Page 1 Signed Report Patient Name: SEKOU CAMPBELL Unit No: [id number] EXAMS: CPT CODE: [id number] DUP VEIN SAMANTHA 26417 (Continued) [facility] NAME: SEKOU CAMPBELL Radiology Department PHYS: Magdalena Borrego MD [address] : 1985 AGE: 34 SEX: F [place], [place] [address] LOC: ROMAIN A PHONE #: [phone] EXAM DATE: 05/04/2020 STATUS: ADM IN FAX #: [phone] RAD NO: Page 2 Signed ReportCBC W/AUTO [id number] 04:57:00 Test Item Value Reference Range Interpretation [...] NORMAL REQUIRED (test code = PLTMR) WBC [id number] 04:57:00 Test Item Value Reference Range Interpretation [...] NORMAL A code = PLTMORPH) CBC W/AUTO [id number] 04:56:00 Test Item Value Reference Range Interpretation [...] NORMAL REQUIRED (test code = PLTMR) WBC [id number] 04:56:00 Test Item Value Reference Range Interpretation Comments SEGMENTED NEUTROPHILS (test code = SEG) % 56.5-79.4 LYMPHOCYTE (test code = LYMPH) % 20-40 CBC W/AUTO [id number] 04:56:00 Test Item Value Reference Range Interpretation [...] NORMAL REQUIRED (test code = PLTMR) WBC [id number] 04:56:00 Test Item Value Reference Range Interpretation Comments SEGMENTED NEUTROPHILS (test code = SEG) % 56.5-79.4 LYMPHOCYTE (test code = LYMPH) % 20-40 COMPREHENSIVE METABOLIC [id number] 04:39:00 Test Item Value Reference Range Interpretation [...] 46-116 N code = ALKP) CBC W/AUTO [id number] 19:13:00 Test Item Value Reference Range Interpretation Comments WHITE BLOOD CELL 5.9 K/mm3 6.6-12.1 L (test code = WBC) RED BLOOD CELL (test 2.60 M/mm3 3.45-5.01 L code = RBC) HEMOGLOBIN (test 6.9 g/dL 10.7-13.9 L RESULTS FERMIN IFIED BY code = HGB) REPEAT ANALYSIS RESULTS CALLED TO GIANNA VERDUGOREAD BACK & CONFIRME D? Y.BY F.LAB.[facility] 05/03. HEMATOCRIT (test [...] PLT) SUREKHA.READ BA CK & CONFIRMED? Y.BY F.LAB.[facility] 05/03 IMMATURE PLATELET [...] REQUIRED (test code PRESENT = PLTMR) LACTIC [id number] 19:05:00 Test Item Value Reference Range Interpretation Comments LACTIC ACID (test 4.5 MMOL/L 0.5-2.2 HH RESULTS CA LLED TO code = LACT) MARIBEL.READ BACK & CONFIRMED? YES. BY GlenAS04 04/17. COMPREHENSIVE METABOLIC [id number] 19:01:00 Test Item Value Reference Range Interpretation [...] 60 units/L 46-116 code = ALKP) PROTHROMBIN [id number] 19:01:00 Test Item Value Reference Range Interpretation Comments PROTHROMBIN TIME PATIENT (test code 13.3 secs 10.4-12.4 H = PTP) THROMBOPLASTIN TIME [id number] 19:01:00 Test Item Value Reference Range Interpretation Comments THROMBOPLASTIN TIME PARTIAL (test 20.6 secs 22-38 L code = PTT) [id number] 19:01:00 Test Item Value Reference Range Interpretation Comments FIBRINOGEN (test code = FIB) 141 mg/dL 309-518 L UA RFLX MICR CULT IF [id number] 12:47:00 Test Item Value Reference Range Interpretation [...] RiskForSepsis-no oth srcSpecimen Description: CLEAN CATCHUR HCG [id number] 12:47:00 Test Item Value Reference Range Interpretation [...] Description: CLEAN CATCHUA RFLX MICR CULT IF [id number] 12:36:00 Test Item Value Reference Range Interpretation [...] RiskForSepsis-no oth srcSpecimen Description: CLEAN CATCHUR HCG [id number] 12:36:00 Test Item Value Reference Range Interpretation [...] culture: RiskForSepsis-no oth srcSpecimen Description: CLEAN CATCHPROTHROMBIN [id number] 10:14:00 Test Item Value Reference Range Interpretation Comments PROTHROMBIN TIME PATIENT (test code 13.3 secs 10.4-12.4 H = PTP) THROMBOPLASTIN TIME [id number] 10:14:00 Test Item Value Reference Range Interpretation Comments THROMBOPLASTIN TIME PARTIAL (test 19.4 secs 22-38 L code = PTT) [id number] 10:14:00 Test Item Value Reference Range Interpretation Comments FIBRINOGEN (test code = FIB) 102 mg/dL 309-518 L COMPREHENSIVE METABOLIC [id number] 09:54:00 Test Item Value Reference Range Interpretation [...] units/L 46-116 N code = ALKP) HGB [id number] 06:49:00 Test Item Value Reference Range Interpretation Comments HEMOGLOBIN (test code = 4.5 g/dL 10.7-13.9 LL RESU LTS CALLED TO HGB) DAY.READ BACK & CONFIRMED? YES. BY FAdrianLAB.IR1 05/03 0649.Results ve rified by repeat mindi sis HEMATOCRIT (test code = 16.2 % 32.1-42.1 LL RESU LTS CALLED TO HCT) DAY.READ BACK & CONFIRMED? YES. BY THI.IR1 05/03 0649.Results ve rified by repeat mindi sis"
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
[2022-01-31 19:31] LABS: Hematocrit 26.8 % (36.0-45.0); Lymphocytes % 13.6 % (15.3-44.8); MCV 85.5 fL (80-100); MPV 8.6 fL (7.6-11.3); RBC Red Blood Cell Count 3.14 M/uL (3.86-4.86)
[2022-01-31 19:57] LABS: Albumin 3.8 g/dL (3.4-5.0); Bilirubin Direct 0.2 mg/dL (0-0.2); Bilirubin Total 0.7 mg/dL (0.2-1.0); Potassium 3.5 mmol/L (3.5-5.1); Protein, Total 8.3 g/dL (6.4-8.2)
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
[2022-01-31 20:57] VITALS: TEMP 98.4; O2SAT 100
[2022-01-31 21:02] VITALS: BP 122/81
== END 2022-01-31 20:04 | disposition home or self-care (01) ==
LOC: ER 18:02
DX: S60.222A Contusion of left hand, initial encounter (principal); V43.52XA Car driver injured in collision with other type car in traffic accident, initial encounter; Y93.89 Activity, other specified; Y92.410 Unspecified street and highway as the place of occurrence of the external cause; D64.9 Anemia, unspecified
CPT/HCPCS: 36415; 80048; 80076; 80320; 82150; 83690; 85025; 86850; 86900; 86901; 99284

== ENCOUNTER 2022-03-21 23:23 | Emergency (ER) | payer SELFPAY ==
--- OUTSIDE RECORDS SUMMARY | 2022-03-22 00:15 | XMS REPORT | Continuity of Care Document ---
:1985 Author Organization [facility] t Address [address] [place] [address] Care Team Providers Name Role Phone Rimma Alarcon Primary Care Physician FLORENCIO LR Attending Clinician Unavailable Florencio Lr MD Attending Clinician Casey Cummins Attending Clinician Unavailable Po RINCON, Inga Greer Attending Clinician Ruthy Hunter Attending Clinician NICOLE SHANKS Attending Clinician Unavailable Pgy3 Attending Clinician Unavailable Sandi Richard LVN Attending Clinician NGOC QUINTEROS Attending Clinician Unavailable Ngoc Quinteros MD Attending Clinician Judi Merino MD Attending Clinician Delonte RINCON, Johanny Attending Clinician Unavailable Chanel Fabian MD Attending Clinician Doctor Unassigned, [place] Attending Clinician Unavailable Jerod RINCON, Erma Monroe Attending Clinician Pranav SANDRA, Matias Attending Clinician MATIAS CRUZ Attending Clinician Unavailable RUTHY LOCO Attending Clinician Unavailable Nicole Chappell Attending Clinician Unavailable DEBRA LÓPEZ Attending Clinician Unavailable Bird Reis DO Attending Clinician Misael RINCON, Aracelis Attending Clinician Unavailable Samuel RINCON, Melinda Gillette Attending Clinician Unavailable Jesse Woods MD Attending Clinician Visit, [facility] Nurse Attending Clinician Unavailable Angela CNP, Allie Anne Attending Clinician [phone] Roger SENIOR PRODUCT CONSULTANT, Rimma Guadalupe Attending Clinician Won SANDRA, Gilson Wren Attending Clinician [phone] Rocío SANDRA, Alla Lion Attending Clinician Syd SENIOR PRODUCT CONSULTANT, Max Mayfield Attending Clinician Dl SANDRA, Ree Attending Clinician Ultrasound, [facility] Attending Clinician Unavailable Mila Ferguson Attending Clinician Risk, Lsc-Vobsh-Vn/High Attending Clinician Unavailable David, [facility] Resident Attending Clinician Unavailable Teresa SANDRA, Inga Chowdary Attending Clinician Chacorta Clark MD Attending Clinician 2, [facility] Room Attending Clinician Unavailable Ruba Chris MD Attending Clinician Faculty, [facility] Attending Clinician Unavailable Emy Marycruz TAMAYO Attending Clinician Lorrie Olmos MD Attending Clinician Klye Cordero Attending Clinician Calvin Patel Attending Clinician 5, [facility] Room Attending Clinician Unavailable Alison Reis MD Attending Clinician Rj SANDRA, Modesto F Attending Clinician Jose C SANDRA, Vidhi Attending Clinician FLORENCIO LR Admitting Clinician Unavailable Casey Cummins Admitting Clinician Unavailable NGOC QUINTEROS Admitting Clinician Unavailable Aldair SANDRA, Ngoc Monroe Admitting Clinician MATIAS CRUZ Admitting Clinician Unavailable Pranav SANDRA, Matias Admitting Clinician Jailene SANDRA, Florencio [place] Admitting Clinician Nicole Chappell Admitting Clinician Unavailable Peggy SANDRA, Jesse Monroe Admitting Clinician Dl SANDRA, Ree Admitting Clinician Nickolas SANDRA, Lorrie Quezada Admitting Clinician Payers Payer Name Policy Type Policy Number Effective Date Expiration Date Amisha navarro [facility] CASEBOOK [id number] 2021 2022 00:00:00 00:00:00 MEDICAID PENDING PENDING 2021 00:00:00 [facility] [id number] 2018 CHOICE MEDICAID 00:00:00 Problems Condition Condition Condition Status Onset Resolution Last Treating Co mments Source Name Details Category Date Date Treatment Clinician Date Acute Acute Disease Active Univers blood loss blood loss 6-22 it y of anemia anemia 00:00: [place] [facility] Branch Menorrhagi Menorrhagi Disease Active U nivers a with a with 6-13 [place] irregular irregular [place] [facility] [place] Anemia Anemia Disease Active Univers 5-10 ity of 00:00: [place] [facility] Branch Abnormal Abnormal Disease Active 2018-04 Unive rs TSH TSH 0-18 ity of 00:00: [place] [facility] Branch Fatty Fatty Disease Active 2018-04 Univers liver liver 0-18 ity of 00:00: [place] [address] Medical Branch Other Other Disease Active 2018-04 Univers fatigue fatigue 0-18 ity of 00:00: [place] [facility] Branch Severe Severe Disease Active Univers pre-eclamp [...] staff will give the patient a study questionlizbet henry before discharge home. Patient will remain in the study until completio n of questionlizbet aire. Delivery samples do not need to [...] Branch History of History of Disease Active 2019-0 Overview : Univers 2-12 Formattin ity of section section 00:00: g of this 00 note Medical might be Branch different from the original. 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 [place] en[place] enin 00 Medical disorder disorder Branch Chronic Chronic Disease Active Univers hepatitis hepatitis 24 ity of C without C without 00:00: [place] hepatic hepatic 00 Medical coma coma Branch Low back Low back Disease Active Unive rs pain pain 04-17 ity of 00:00: [place] 00 Medical Branch [...] DRUG Active Unknown-Cmnt Un brayden IN INGREDI -19 ity of 00:00: [place] 00 Medical Branch Penicill Propensi Active Unknown - Uni vers in ty to See comments 06-05 ity of adverse 00:00: [place] reaction 00 [...] Alcohol intake 2021-10-11 2021-10-11 0 /d University 00:00:00 00:00:00 [facility] Exposure to 2021-09-25 2021-10-05 Not sure [facility] SARS-CoV-2 (event) 00:00:00 09:00:00 [facility] Education 2021-08-24 2021-08-24 14 University 00:00:00 00:00:00 [facility] Tobacco Comment 2018-05-29 2018-05-29 1 pack per week; Uni versity of 00:00:00 00:00:00 quit 2015 [facility] Tobacco use and 2018-05-29 2018-05-29 Smokeless Universit y of exposure 00:00:00 00:00:00 tobacco [facility] smoked 2018-05-29 2018-05-29 Univers ity of current (pack per 00:00:00 00:00:00 [facility] ) - Reported Branch Cigarette 2018-05-29 2018-05-29 University of pack-years 00:00:00 00:00:00 [facility] History of tobacco 2015-06-21 Cigarette Smoker University of use 00:00:00 [facility] Sex Ass[birth year] At [birth year] Universit y of 00:00:00 00:00:00 [facility] Smoking Status Start Date Stop Date Source Ex-smoker 2018-05-29 00:00:00 2018-05-29 00:00:00 Universi ty [facility] Medications Ordered Filled Start Stop Current Ordering Indication Dosage Frequency Signature Comments Components Source Medication Medication Date Date Medication? Clinician (SIG) Name Name ferrous Yes 300mg 300 mg, Univer s sulfate 300 6-29 Oral, ity of mg (60 mg 00:58: Q48H, [place] iron)/5 mL 00 First dose Med ical solution (after Branch 300 mg last modificati on) on Mon10/12/21 at 2000, Until Discontinu ed, Routine ferrous Yes 300mg 300 mg, Univer s sulfate 300 6-29 Oral, ity of mg (60 mg 00:58: Q48H, [place] iron)/5 mL 00 First dose Med ical solution (after Branch 300 mg last modificati on) on Mon10/12/21 at 1999, Until Discontinu ed, Routine polyethylen Yes [id number] 17g Take 1 Univers e glycol 6-29 Packet by ity of 3350 17 00:00: mouth [place] gram powder 00 daily. Medica l Branch polyethylen Yes [id number] 17g Take 1 Univers e glycol 6-29 Packet by ity of 3350 17 00:00: mouth [place] gram powder 00 daily. Medica l Branch polyethylen Yes [id number] 17g Take 1 Univers e glycol 6-29 Packet by ity of 3350 17 00:00: mouth [place] gram powder 00 daily. Medica l Branch polyethylen Yes [id number] 17g Take 1 Univers e glycol 6-29 Packet by ity of 3350 17 00:00: mouth [place] gram powder 00 daily. Medica l Branch polyethylen Yes [id number] 17g Take 1 Univers e glycol 6-29 Packet by ity of 3350 17 00:00: mouth [place] gram powder 00 daily. Medica l Branch polyethylen Yes [id number] 17g Take 1 Univers e glycol 6-29 Packet by ity of 3350 17 00:00: mouth [place] gram powder 00 daily. Medica l Branch polyethylen Yes [id number] 17g Take 1 Univers e glycol 6-29 [...] TIMES EVERY DAY NEEDED FOR PAIN. HYDROmorpho 2021- No .3mg 0.3 mg, Un brayden ne 10-12 Slow IV ity of (DILAUDID) 00:36: 01:21 Push, [place] injection 44 :00 Q6HPRN, 1 Medic al 0.3 mg dose, Branch Starting on Mon10/11/21 at 1936, Until Mon10/11/21 at 2020, Routine, Pain (scale 7-10)
U se approved by (Faculty): [facility] gabapentin 0 Yes [id number] 300mg Take 1 Univers 300 mg 6-28 [...] Indication s: acute pain methocarbam 0 Yes [id number] 500mg Take 1 Univers oL 500 mg 6-28 tablet by ity o f tablet 00:00: mouth 4 [place] 00 (four) Medical times Branch daily as needed for Pain (scale 4-6). phenazopyri 0 Yes [id number] 200mg Take 1 Univers dine 200 mg 6-28 tablet by ity of tablet 00:00: mouth 3 [place] 00 (three) Medical times Branch daily. sennosides- 2021-0 Yes [id number] 1{tbl} Take 1 Univers docusate 6-28 tablet by ity of sodium 00:00: mouth 2 [place] 8.6-50 mg 00 (two) Medical per tablet times Branch daily. simethicone 0 Yes [id number] 160mg Take 2 Univers 80 mg 6-28 tablets by ity of chewable 00:00: mouth [place] tablet 00 after Medical meals and Branch at bedtime. gabapentin 2022-0 Yes [id number] 300mg Take 1 Univers 300 mg 6-28 [...] Indication s: acute pain methocarbam 2022-0 Yes [id number] 500mg Take 1 Univers oL 500 mg 6-28 tablet by ity o f tablet 00:00: mouth 4 [place] 00 (four) Medical times Branch daily as needed for Pain (scale 4-6). phenazopyri 2021-0 Yes [id number] 200mg Take 1 Univers dine 200 mg 6-28 tablet by ity of tablet 00:00: mouth 3 [place] 00 (three) Medical times Branch daily. sennosides- 2021-0 Yes [id number] 1{tbl} Take 1 Univers docusate 6-28 tablet by ity of sodium 00:00: mouth 2 [place] 8.6-50 mg 00 (two) Medical per tablet times Branch daily. simethicone 2021-0 Yes [id number] 160mg Take 2 Univers 80 mg 6-28 tablets by ity of chewable 00:00: mouth [place] tablet 00 after Medical meals and Branch at bedtime. gabapentin 2021-0 Yes [id number] 300mg Take 1 Univers 300 mg 6-28 [...] Indication s: acute pain methocarbam 2022-0 Yes [id number] 500mg Take 1 Univers oL 500 mg 6-28 tablet by ity o f tablet 00:00: mouth 4 [place] 00 (four) Medical times Branch daily as needed for Pain (scale 4-6). phenazopyri 2022-0 Yes [id number] 200mg Take 1 Univers dine 200 mg 6-28 tablet by ity of tablet 00:00: mouth 3 [place] 00 (three) Medical times Branch daily. sennosides- 2021-0 Yes [id number] 1{tbl} Take 1 Univers docusate 6-28 tablet by ity of sodium 00:00: mouth 2 [place] 8.6-50 mg 00 (two) Medical per tablet times Branch daily. simethicone 2021-0 Yes [id number] 160mg Take 2 Univers 80 mg 6-28 tablets by ity of chewable 00:00: mouth [place] tablet 00 after Medical meals and Branch at bedtime. gabapentin 2021-0 Yes [id number] 300mg Take 1 Univers 300 mg 6-28 [...] Indication s: acute pain methocarbam 2021-0 Yes [id number] 500mg Take 1 Univers oL 500 mg 6-28 tablet by ity o f tablet 00:00: mouth 4 [place] 00 (four) Medical times Branch daily as needed for Pain (scale 4-6). phenazopyri 2021-0 Yes [id number] 200mg Take 1 Univers dine 200 mg 6-28 tablet by ity of tablet 00:00: mouth 3 [place] 00 (three) Medical times Branch daily. sennosides- 2021-0 Yes [id number] 1{tbl} Take 1 Univers docusate 6-28 tablet by ity of sodium 00:00: mouth 2 [place] 8.6-50 mg 00 (two) Medical per tablet times Branch daily. simethicone 2021-0 Yes [id number] 160mg Take 2 Univers 80 mg 6-28 tablets by ity of chewable 00:00: mouth [place] tablet 00 after Medical meals and Branch at bedtime. gabapentin 2021-0 Yes [id number] 300mg Take 1 Univers 300 mg 6-28 [...] Indication s: acute pain methocarbam 2022-0 Yes [id number] 500mg Take 1 Univers oL 500 mg 6-28 tablet by ity o f tablet 00:00: mouth 4 [place] 00 (four) Medical times Branch daily as needed for Pain (scale 4-6). phenazopyri 2022-0 Yes [id number] 200mg Take 1 Univers dine 200 mg 6-28 tablet by ity of tablet 00:00: mouth 3 [place] 00 (three) Medical times Branch daily. sennosides- 2021-0 Yes [id number] 1{tbl} Take 1 Univers docusate 6-28 tablet by ity of sodium 00:00: mouth 2 [place] 8.6-50 mg 00 (two) Medical per tablet times Branch daily. simethicone 2021-0 Yes [id number] 160mg Take 2 Univers 80 mg 6-28 tablets by ity of chewable 00:00: mouth [place] tablet 00 after Medical meals and Branch at bedtime. gabapentin 2021-0 Yes [id number] 300mg Take 1 Univers 300 mg 6-28 capsule by ity of capsule 00:00: mouth 3 00 (three) Medical times Branch daily. HYDROcodone 2-0 Yes [id number] 1{tbl} Take 1 Un brayden -acetaminop 6-28 tablet by ity of hen 10-325 00:00: mouth [place] mg tablet 00 every 4 Medical (four) Branch hours as needed for Pain (scale 4-6) for up to 20 doses. Indication s: acute pain methocarbam 2022-0 Yes [id number] 500mg Take 1 Univers oL 500 mg 6-28 tablet by ity o f tablet 00:00: mouth 4 [place] 00 (four) Medical times Branch daily as needed for Pain (scale 4-6). phenazopyri 2022-0 Yes [id number] 200mg Take 1 Univers dine 200 mg 6-28 tablet by ity of tablet 00:00: mouth 3 00 (three) Medical times Branch daily. sennosides- 2022-0 Yes [id number] 1{tbl} Take 1 Univers docusate 6-28 tablet by ity of sodium 00:00: mouth 2 [place] 8.6-50 mg 00 (two) Medical per tablet times Branch daily. simethicone 0 Yes [id number] 160mg Take 2 Univers 80 mg 6-28 tablets by ity of chewable 00:00: mouth [place] tablet 00 after Medical meals and Branch at bedtime. gabapentin 0 Yes [id number] 300mg Take 1 Univers 300 mg 6-28 [...] Indication s: acute pain methocarbam 0 Yes [id number] 500mg Take 1 Univers oL 500 mg 6-28 tablet by ity o f tablet 00:00: mouth 4 [place] 00 (four) Medical times Branch daily as needed for Pain (scale 4-6). phenazopyri Yes [id number] 200mg Take 1 Univers dine 200 mg 6-28 tablet by ity of tablet 00:00: mouth 3 [place] 00 (three) Medical times Branch daily. sennosides- 0 Yes [id number] 1{tbl} Take 1 Univers docusate 6-28 tablet by ity of sodium 00:00: mouth 2 [place] 8.6-50 mg 00 (two) Medical per tablet times Branch daily. simethicone 0 Yes [id number] 160mg Take 2 Univers 80 mg 6-28 tablets by ity of chewable 00:00: mouth [place] tablet 00 after Medical meals and Branch at bedtime. phenazopyri No 200mg 200 mg, U nivers dine [...] E)) 00 First dose Medical chewable on [facility] Branch tablet 160 10/11/21 at mg 0915, Until Discontinu ed, Routine simethicone Yes 160mg 160 mg, Un brayden (GAS RELIEF 10-11 Oral, ity of (SIMETHICON 14:15: PC[place]HS, [place] E)) 00 First dose Medical chewable on [facility] Branch tablet 160 10/11/21 at mg 0915, Until Discontinu ed, Routine simethicone 2021- No 120mg 120 mg, U nivers (GAS RELIEF 10-11 Oral, ity of (SIMETHICON 14:00: 14:11 PC+HS, [place] as E)) 00 :54 First dose Medical chewable on [facility] Branch tablet 120 10/11/21 at mg 0900, Until Discontinu ed, Routine HYDROmorpho No .3mg 0.3 mg, Un brayden ne 10-11 Slow IV ity of (DILAUDID) 13:12: 17:58 Push, [place] injection 30 :00 Q6HPRN, 1 Medic al 0.3 mg dose, Branch Starting on Mon10/11/21 at 0812, Until Discontinu ed, Routine, Pain (scale 7-10)
U se approved by (Faculty): [facility] HYDROcodone Yes 1{tbl} 1 tablet, Univers -acetaminop 10-11 Oral, ity of hen (NORCO) 13:11: Q4HPRN, [place] as 10-325 mg 54 Starting Medica l tablet 1 on Mon Branch tablet 10/11/21 at 0811, Until Discontinu ed, Routine, Pain (scale 4-6) HYDROcodone 2021-0 Yes 1{tbl} 1 tablet, Univers -acetaminop 10-11 Oral, ity of hen (NORCO) 13:11: Q4HPRN, [place] 10-325 mg 54 Starting Medica l tablet 1 on Mon Branch tablet 10/11/21 at 0811, Until Discontinu ed, Routine, Pain (scale 4-6) sennosides- 2021-0 Yes 1{tbl} 1 tablet, Univers docusate 10-11 [...] per tablet modificati 1 tablet on) on 10/11/21 at 0800, Until Discontinu ed, Routine diphenhydrA [...] 2202, Until Discontinu ed, Routine, Insomnia melatonin 2021-0 Yes 3mg 3 mg, Univers (MELATIN) 10-11 Oral, ity of tablet 3 mg 03:02: QHSPRN, [place] 34 Starting Medical on Sun Branch 10/10/21 at 2202, Until Discontinu ed, Routine, Insomnia diphenhydrA 2021-0 Yes 50mg 50 mg, Univ ers MINE 10-10 Intravenou ity of (BENADRYL) 20:50: s, QHSPRN, [place] injection 29 Starting Medica l 50 mg on Sun Branch 10/10/21 at 1550, Until Discontinu ed, Routine, Insomnia diphenhydrA Yes 50mg 50 mg, Univ ers MINE 10-10 Intravenou ity of (BENADRYL) 20:50: s, QHSPRN, [place] injection 29 Starting Medica l 50 mg on Sun Branch 10/10/21 at 1550, Until Discontinu ed, Routine, Insomnia ibuprofen Yes ibuprofen Uni vers 800 mg 10-10 800 mg ity of tablet 17:07: tablet [place] 42 TAKE 1 Medical TABLET BY Branch [...] 100 mg ity of capsule 17:07: capsule [place] 42 TAKE 1 Medical CAPSULE BY Branch [...] Medical mg last Branch modificati on) on 10/10/21 at 1200, Until Discontinu ed, Routine HYDROmorpho 2021- No .2mg 0.2 mg, Un brayden ne 10-10 Slow IV ity of (DILAUDID) 15:55: 13:12 Push, [place] injection 26 :51 Q6HPRN, 5 Medic al 0.2 mg doses, Branch Starting on 10/10/21 at 1055, Until 10/11/21 at 0812, Routine, Pain (scale 7-10)
U se approved by (Faculty): [facility] oxyCODONE No 5mg 5 mg, Univer s immediate 10-10 Oral, ity of release 15:54: 13:12 Q6HPRN, [place] tablet 5 mg 15 :12 Starting Medi frank on Sun Branch 10/10/21 at 1054, Until 10/11/21 at 0812, Routine, Pain (scale 4-6)
Fa culty member approving Restricted medication : NGOC QUINTEROS ALPRAZolam No .25mg 0.25 mg, U nivers (XANAX) 10-10 Oral, ity of tablet 0.25 01:00: 20:50 QHSPRN, [place] mg 00 :59 Starting Medical on [facility] Branch 10/09/21 at 2000, Until [place] 10/10/21 at 1550, SUSI, Insomnia magnesium No 2g 2 g, IV Univ ers sulfate in 10-09 Piggyback, it y of water 2 22:15: 00:43 Administer [place] as gram/50 mL 00 :00 over 60 Medica l (4 %) Minutes, Branch infusion 2 ONCE, 1 g dose, On [facility] 10/09/21 at 1715, SUSI D5W-LR IV 0 Yes 1000mL at 20 Unive rs infusion 6-25 mL/hr, IV ity of 1,000 mL 21:15: Infusion, [place] 00 CONTINUOUS Medical , Starting Branch on 10/09/21 at 1615, Until Discontinu ed, Routine D5W-LR IV 0 Yes 1000mL at 20 Unive rs infusion 6-25 mL/hr, IV ity of 1,000 mL 21:15: Infusion, [place] 00 CONTINUOUS Medical , Starting Branch on [facility] 10/09/21 at 1615, Until Discontinu ed, Routine HYDROmorpho 2021- No IV Unive rs ne 10 mg/50 10-09 Infusion, it y of mL 0.9% 16:45: 15:55 50 mL, [place] NaCL 00 :40 CONTINUOUS Medical (DILAUDID) , Starting Bra [facility] CNC MECHANIC on 10/09/21 at 1145, Until 10/10/21 at 1055 acetaminoph 2021- No 650mg 650 mg, U nivers en 10-09 Oral, ity of (TYLENOL) 15:39: 15:55 Q6HPRN, [place] tablet 650 11 :40 Starting Medic al mg on Sat Branch 10/09/21 at 1039, Until 10/10/21 at 1055, Routine, Alternate with [place] for pain scale 4-6 HYDROmorphO 2021- No [...] 10-09 Oral, ity of sodium 14:00: DAILY, [place] (SENOKOT-S) 00 First dose Me dical 8.6-50 [...] 17 g 00 First dose Medical on [facility] Branch 10/09/21 at 0900, Until Discontinu ed, Routine sennosides- 2021- No 1{tbl} 1 tablet, Univers docusate 10-09 Oral, ity of sodium 14:00: 12:21 DAILY, [place] (SENOKOT-S) 00 :42 First dose Me dical [...] [place] iron)/5 mL 00 :59 on [facility] Medical solution 10/09/21 at Bran h 300 mg 0800, Until Discontinu ed, Routine D5W-LR IV No 1000mL at 75 Univ ers infusion 10-09- mL/hr, IV ity o f 1,000 mL 10:45: 21:03 Infusion, [place] as 00 :24 CONTINUOUS Medical , Starting Branch on [facility] 10/09/21 at 0545, Until 10/09/21 at 1603, [...] For systolic over 140 per cuff. FENTanyl 0 Yes 1000ug IV Univers CNC MECHANIC 1,000 10-08 Infusion, ity o f mcg in NaCl 18:45: CONTINUOUS [place] 0.9%(NS) 00 , Starting Medic al 100 mL RTU on Mon Branch 10/08/21 at 1345, Until Discontinu ed, SUSI FENTanyl 2021-0 2021- No 1000ug IV Univer s CNC MECHANIC 1,000 10-08 Infusion, ity of mcg in NaCl 18:45: 15:36 CONTINUOUS [place] 0.9%(NS) 00 :35 , Starting Medic al 100 mL RTU on Mon Branch 10/08/21 at 1345, Until 10/09/21 at 1036, SUSI magnesium 2021-0 2021- No 2g 2 g, IV Univ ers sulfate in 10-08 Piggyback, it y of water 2 15:00: 16:49 Administer [place] as gram/50 mL 00 :00 over 60 Medica l (4 %) Minutes, Branch infusion 2 ONCE, 1 g dose, On Mon10/08/21 at 1000, Routine methocarbam 0 Yes 500mg 500 mg, Un brayden oL 10-08 Oral, ity of (ROBAXIN) 14:03: QIDPRN, [place] tablet 500 00 Starting Medic al mg on Mon Branch 10/08/21 at 0903, Until Discontinu ed, SUSI, Muscle Spasms methocarbam 2021-0 Yes 500mg 500 mg, Un brayden oL 10-08 Oral, ity of (ROBAXIN) 14:03: QIDPRN, [place] tablet 500 00 Starting Medic al mg on Mon Branch 10/08/21 at 0903, Until Discontinu ed, SUSI, Muscle Spasms methocarbam 2021-0 Yes 500mg 500 mg, Un brayden oL 6-24 Oral, ity of (ROBAXIN) 14:03: QIDPRN, [place] tablet 500 00 Starting Medic al mg on Mon Branch 10/08/21 at 0903, Until Discontinu ed, SUSI, Muscle Spasms FENTanyl 2021-0 2021- No 1000ug IV Univer s CNC MECHANIC 1,000 10-08- Infusion, ity of mcg in NaCl 10:45: 18:04 CONTINUOUS [place] 0.9%(NS) 00 :44 , Starting Medic al 100 mL RTU on Mon Branch 10/08/21 at 0545, Until Mon10/08/21 at 1304, SUSI ondansetron 2-0 Yes 4mg 4 mg, Slow Univers (ZOFRAN 6-24 IV Push, ity of (PF)) 09:47: Q6HPRN, [place] injection 4 52 Nausea and Me dical mg Vomiting Branch (N/V), Starting on Mon10/08/21 at 0447
Do ses of ondansetro n 16 mg and above need to be administer ed via IV piggyback. For Dose >=24mg ECG monitoring is advisable.
ondansetron 2-0 Yes 4mg 4 mg, Slow Univers (ZOFRAN 6-24 IV Push, ity of (PF)) 09:47: Q6HPRN, [place] injection 4 52 Nausea and Me dical mg Vomiting Branch (N/V), Starting on Mon10/08/21 at 0447
Do ses of ondansetro n 16 mg and above need to be administer ed via IV piggyback. For Dose >=24mg ECG monitoring is advisable.
ondansetron 2-0 Yes 4mg 4 mg, Slow Univers (ZOFRAN 6-24 IV Push, ity of (PF)) 09:47: Q6HPRN, [place] injection 4 52 Nausea and Me dical mg Vomiting Branch (N/V), Starting on Mon10/08/21 at 0447
Do ses of ondansetro n 16 mg and above need to be administer ed via IV piggyback. For Dose >=24mg ECG monitoring is advisable.
proMETHazin 2-0 Yes 25mg 25 mg, IV U nivers e 624 Piggyback, ity of (PHENERGAN) 09:38: at 200 [...] ity of 0.9 % 07:00: on Mon [place] irrigation 10/08/21 at Med ical solution 0200, Branch Until Discontinu ed, Intra-op sodium 2021-0 Yes PRN, Univers chloride 10-08 Starting ity of 0.9 % 07:00: on Mon [place] irrigation 10/08/21 at Med ical solution 0200, Branch Until Discontinu ed, Intra-op sodium 2021-0 Yes PRN, Univers chloride 10-08 Starting ity of 0.9 % 07:00: on Mon [place] irrigation 10/08/21 at Med ical solution 0200, Branch Until Discontinu ed, Intra-op lactated 2021- No 500mL at 999 Unive rs ringers IV 10-08 mL/hr, 500 it y of infusion 06:45: 05:14 mL, [place] 500 mL 00 :00 Intravenou Medical s, [...] s vasopresso r at a time.
diphenhydrA No 25mg 25 mg, Uni vers [...] DAY NEEDED HYDROcodone Yes hydrocodon Univers -acetaminop 10-08 e 10 ity of hen 10-325 04:41: mg-acetami [place] mg tablet 24 nophen 325 Medi frank mg tablet Branch TAKE 1 TABLET BY MOUTH FOUR TIMES A DAY NEEDED FOR 30 DAYS gabapentin Yes gabapentin U nivers 100 mg 10-08 100 mg ity of capsule 04:41: capsule TAKE 1 Medical CAPSULE BY Branch MOUTH EVERY DAY AT BEDTIME FOR 30 DAYS acetaminoph Yes acetaminop Univers en-codeine 10-08 hen 300 ity of 300-30 mg 04:41: mg-codeine [place] tablet 24 30 mg Medical tablet Branch TAKE 1 TABLET BY MOUTH 2-3 TIMES EVERY DAY NEEDED FOR PAIN. acetaminoph No 1000mg 1,000 mg, Univers en ADULT 10-08 IV ity of (OFIRMEV) 03:00: 20:15 Infusion, [...] 01:00: First dose [place] mg 00 on [facility] 10/07/21 at [place] 1999, Until Discontinu ed, Routine gabapentin 0 Yes 300mg 300 mg, Uni vers (NEURONTIN) 6-24 Oral, TID, it y of capsule 300 01:00: First dose [place] mg 00 on [facility] Medical 10/07/21 at [place] 1999, Until Discontinu ed, Routine gabapentin 0 Yes 300mg 300 mg, Uni vers (NEURONTIN) 6-24 Oral, TID, it y of capsule 300 01:00: First dose [place] mg 00 on [facility] 10/07/21 at [place] 1999, Until Discontinu ed, Routine ibuprofen 2021-0 Yes ibuprofen Uni vers 800 mg 24 800 mg ity of tablet 00:39: tablet [place] [id number] TAKE 1 Medical TABLET BY Branch MOUTH TWICE A DAY NEEDED HYDROcodone 0 Yes hydrocodon Univers -acetaminop -24 e 10 ity of hen 10-325 00:39: mg-acetami [place] mg tablet 38 nophen 325 Medi frank mg tablet Branch TAKE 1 TABLET BY MOUTH FOUR TIMES A DAY NEEDED FOR 30 DAYS gabapentin 0 Yes gabapentin U nivers 100 mg 10-08 100 mg ity of capsule 00:39: capsule [place] 38 TAKE 1 Medical CAPSULE BY Branch MOUTH EVERY DAY AT BEDTIME FOR 30 DAYS acetaminoph 2021-0 Yes acetaminop Univers en-codeine 10-08 hen 300 ity of 300-30 mg 00:39: mg-codeine [place] tablet 38 30 mg Medical tablet Branch TAKE 1 TABLET BY MOUTH 2-3 TIMES EVERY DAY NEEDED FOR PAIN. ketorolac 0 2021- No 30mg 30 mg, Unive rs (TORADOL) 10-07 06-24 Slow IV ity of injection 23:00: 09:45 Push, Q6H, [place] 30 mg 00 :12 4 doses, Medical First dose Branch on [facility] 10/07/21 at 1800, Last dose on Mon10/08/21 at 1200, Routine oxyCODONE 2021- No 10mg 10 mg, Unive rs immediate 10-07 Oral, ity of release 21:41: 09:45 Q6HPRN, [place] tablet 10 22 :12 Starting Medica l mg on Jeny Branch 10/07/21 at 1641, Until Mon10/08/21 at 0445, Routine, Pain (scale 7-10)
F aculty member approving Restricted medication : LRFLORENCIO PRAISH D5W-LR IV Yes 1000mL at 125 Univ ers infusion 6-23 mL/hr, IV ity of 1,000 mL 21:15: Infusion, [place] 00 CONTINUOUS Medical , Starting Branch on Jeny 10/07/21 at 1615, Until Discontinu ed, Routine D5W-LR IV 2021- No 1000mL at 125 Uni vers infusion 10-07- mL/hr, IV ity o f 1,000 mL 21:15: 10:30 Infusion, [place] as 00 :05 CONTINUOUS Medical , Starting Branch on Jeny 10/07/21 at 1615, Until 10/09/21 at 0530, Routine HYDROcodone 2021- No 1{tbl} 1 tablet, Univers -acetaminop 10-07 Oral, ity of hen (NORCO 21:15: 21:55 ONCE, 1 [place] 5) 5-325 mg 00 :00 dose, On Medi frank tablet 1 [facility] tablet 10/07/21 at 1615, Routine, PACU morpHINE [...] Push, ity of (PF)) 21:11: 09:45 Q4HPRN, [place] injection 4 23 :12 Starting Medi frank mg on Jeny Branch 10/07/21 at 1611, Until 10/08/21 at 0445, Routine, Nausea and Vomiting (N/V) HYDROmorphO 2021- No .2mg 0.2 mg, Un brayden ne 10-07 Slow IV ity of (DILAUDID) 21:04: 22:20 Push, [place] injection 22 :58 Q5MIN PRN, Medi frank 0.2 mg 10 doses, Branch Starting on Jeny 10/07/21 at 1604, Until Jeny 10/07/21 at 1720, Routine, Pain (scale 7-10), PACU
Us e approved by (Faculty): PACU USE -ANESTHESI A SERVICE-HY DROMORPHON E INJECTIONS FENTanyl PF 2021- No 25ug 25 mcg, Un brayden (SUBLIMAZE 10-07 Slow IV ity o f (PF)) 21:04: 22:20 Push, [place] injection 21 :58 Q5MIN PRN, Medi frank [...] of 0.9 % 20:50: 22:20 on Jeny [place] irrigation 00 :12 10/07/21 at Med ical solution 1550, Branch Until Jeny 10/07/21 at 1720, Intra-op lidocaine-e 2021- No PRN, Unive rs pinephrine 10-07 Starting ity of (XYLOCAINE 20:49: 22:20 on [place] WITH 00 :12 10/07/21 at Medical EPINEPHRINE 1549, Branch ) 1 Until [facility] %-1:100,000 10/07/21 at injection 1720, Routine, Intra-op bupivacaine 2021- No PRN, Unive rs (preserv 10-07 Starting ity of free) 20:48: 22:20 on Jeny [place] (SENSORCAIN 00 :12 10/07/21 at Ok dical E MPF) 0.25 1548, Branch % [...] 18:25: 21:01 INTRA [place] (10 %) 00 :33 PROCEDURE, Medical syringe Starting Branch on Jeny [...] 10-07 ity of (in units)~ 17:14: 21:01 [place] 13 :33 Medical Branch ceFAZolin 2021- No Slow IV Univ ers (ANCEF) 10-07 Push, ONCE ity o f injection 17:01: 21:01 INTRA [place] 00 :33 PROCEDURE, Medical Starting Branch on [...] Push, ONCE ity of 16:45: 21:01 INTRA [place] 00 :33 PROCEDURE, Medical Starting Branch on Ejny 10/07/21 at 1145, Until Jeny 10/07/21 at 1601, Routine, Intra-op HYDROmorphO 2021- No Slow IV Un brayden ne 10-07 Push, ONCE ity of (DILAUDID) 16:45: 21:01 INTRA [place] injection 00 :33 PROCEDURE, [...] it y of (iso-os) 15:55: 17:10 O.R. [place] (FLAGYL 50 :00 HOLDING Medical I.V.) RTU ONCE, 1 Branch IV infusion dose, 500 mg Starting on Jeny 10/07/21 at 1055, Until Jeny 10/07/21 at 1210, Administer over 75 Minutes, 100 mL
Reas on for Anti-Infec tive: Surgical Prophylaxi s
[place]osta rgical Prophylaxi s: HEAD CLEANING PORTER
Duration of therapy: within 24 hours of [...] 10/06/21 at 1445, Routine, DSU Pre-op carisoprodo 2021-0 Yes 350mg Take 350 U nivers L 350 mg 5-06 mg by ity of tablet 00:00: mouth [place] 00 daily. Medical Branch carisoprodo Yes 350mg Take 350 U nivers L [...] mouth [place] 00 daily. Medical Branch carisoprodo 2021-0 Yes 350mg Take 350 U nivers L 350 mg 5-06 mg by ity of tablet 00:00: mouth [place] 00 daily. Medical Branch carisoprodo 2021-0 Yes 350mg Take 350 U nivers L 350 mg 5-06 mg by ity of tablet 00:00: mouth [place] 00 daily. Medical Branch carisoprodo 0 Yes 350mg Take 350 U nivers L 350 mg 5-06 mg by ity of tablet 00:00: mouth [place] 00 daily. Medical Branch carisoprodo 2021-0 Yes 350mg Take 350 U nivers L 350 mg 5-06 mg by ity of tablet 00:00: mouth [place] 00 daily. Medical Branch carisoprodo 2021-0 Yes 350mg Take 350 U nivers L 350 mg 5-06 mg by ity of tablet 00:00: mouth [place] 00 daily. Medical Branch carisoprodo 2021-0 Yes 350mg Take 350 U nivers L 350 mg 5-06 mg by ity of tablet 00:00: mouth [place] 00 daily. Medical Branch Immunizations Ordered Filled Immunization Date Status Comments [facility] e Immunization Name Name TDAP (ADACEL) 2018-10-15 Completed University of VACCINE 00:00:00 [facility] TDAP (ADACEL) 2018-10-15 Completed University of VACCINE 00:00:00 [facility] TDAP (ADACEL) 2018-10-15 Completed University of VACCINE 00:00:00 [facility] TDAP (ADACEL) 2018-10-15 Completed University of VACCINE 00:00:00 [facility] Branch TDAP (ADACEL) 2018-10-15 Completed University of VACCINE 00:00:00 [facility] Branch TDAP (ADACEL) 2018-10-15 Completed University of VACCINE 00:00:00 [facility] TDAP (ADACEL) 2018-10-15 Completed University of VACCINE 00:00:00 [facility] Branch TDAP (ADACEL) 2018-10-15 Completed University of VACCINE 00:00:00 [facility] Branch TDAP (ADACEL) 2018-10-15 Completed University of VACCINE 00:00:00 [facility] TDAP (ADACEL) 2018-10-15 Completed University of VACCINE 00:00:00 [facility] Vital Signs Vital Name Observation Time Observation Value Comments Source Systolic blood 2021-10-12 16:39:00 121 mm[Hg] Univer sity of pressure [facility] Diastolic blood 2021-10-12 16:39:00 67 mm[Hg] Unive rsity of pressure [facility] Heart rate 2021-10-12 16:39:00 59 /min [facility] Body temperature 2021-10-12 16:39:00 37.28 Radha Univ ers[facility] [place] [facility] Respiratory rate 2021-10-12 16:39:00 18 /min Univ [facility] [place] [facility] Oxygen saturation in 2021-10-12 16:39:00 97 /min University of Arterial blood by [facility] Pulse oximetry Branch Body height 2021-10-10 13:00:00 162.6 cm [facility] [place] [facility] Body weight 2021-10-10 13:00:00 83.7 kg [facility] [place] [facility] BMI 2021-10-10 13:00:00 31.66 kg/m2 [facility] [place] [facility] Systolic blood 2021-10-12 16:39:00 121 mm[Hg] Univer sity of pressure [place] [facility] Diastolic blood 2021-10-12 16:39:00 67 mm[Hg] Unive rsity of pressure [place] [facility] Heart rate 2021-10-12 16:39:00 59 /min [facility] [place] [facility] Body temperature 2021-10-12 16:39:00 37.28 Radha [facility] [place] [facility] Respiratory rate 2021-10-12 16:39:00 18 /min [facility] [place] [facility] Oxygen saturation in 2021-10-12 16:39:00 97 /min University of Arterial blood by [facility] Pulse oximetry Branch Body height 2021-10-10 13:00:00 162.6 cm [facility] [place] [facility] Body weight 2021-10-10 13:00:00 83.7 kg [facility] [place] [facility] BMI 2021-10-10 13:00:00 31.66 kg/m2 [facility] [place] [facility] Systolic blood 2021-10-08 06:29:00 100 mm[Hg] Univer sity of pressure [place] [facility] Diastolic blood 2021-10-08 06:29:00 60 mm[Hg] Unive rsity of pressure [place] [facility] Heart rate 2021-10-08 06:29:00 73 /min [facility] [place] [facility] Body temperature 2021-10-08 06:29:00 37 Radha [facility] [place] [facility] Respiratory rate 2021-10-08 06:29:00 22 /min Univ [facility] [place] [facility] Oxygen saturation in 2021-10-08 06:29:00 100 /min University of Arterial blood by [facility] Pulse oximetry Branch Body weight 2021-10-08 05:40:00 88 kg [facility] [place] [facility] BMI 2021-10-08 05:40:00 31.66 kg/m2 [facility] [place] [facility] Body height 2021-10-07 05:00:00 162.6 cm [facility] [place] [facility] Systolic blood 2021-10-07 21:15:00 118 mm[Hg] Univer sity of pressure [place] [facility] Diastolic blood 2021-10-07 21:15:00 64 mm[Hg] Unive rsity of pressure [place] [facility] Heart rate 2021-10-07 21:15:00 76 /min [facility] [place] [facility] Respiratory rate 2021-10-07 21:15:00 15 /min Univ [facility] [place] [facility] Oxygen saturation in 2021-10-07 21:15:00 100 /min University of Arterial blood by [facility] Pulse oximetry Branch Body temperature 2021-10-07 21:00:00 36.94 Radha Univ [facility] [place] [facility] Body height 2021-10-07 05:00:00 162.6 cm [facility] [place] [facility] Body weight 2021-10-06 20:20:00 75.4 kg [facility] [place] [facility] BMI 2021-10-06 20:20:00 33.30 kg/m2 [facility] [place] [facility] Systolic blood 2021-10-07 21:15:00 118 mm[Hg] Univer sity of pressure [place] [facility] Diastolic blood 2021-10-07 21:15:00 64 mm[Hg] Unive rsity of pressure [place] [facility] Heart rate 2021-10-07 21:15:00 76 /min [facility] [place] [facility] Respiratory rate 2021-10-07 21:15:00 15 /min Univ [facility] [place] [facility] Oxygen saturation in 2021-10-07 21:15:00 100 /min University of Arterial blood by [facility] Pulse oximetry Branch Body temperature 2021-10-07 21:00:00 36.94 Radha [facility] [place] [facility] Body height 2021-10-07 05:00:00 162.6 cm [facility] [place] [facility] Body weight 2021-10-06 20:20:00 75.4 kg [facility] BMI 2021-10-06 20:20:00 33.30 kg/m2 [facility] Procedures Procedure Date / Time Performing Clinician Source Performed CBC WITH DIFF 2021-10-12 11:42:00 [facility] URINALYSIS 2021-10-11 15:27:00 [facility] URINALYSIS 2021-10-11 15:27:00 Lona [facility] URINE CULTURE 2021-10-11 15:27:00 Lona [facility] CBC WITHOUT DIFF 2021-10-10 22:32:00 Yunier [facility] CBC WITHOUT DIFF 2021-10-10 22:32:00 Yunier [facility] PHOSPHORUS 2021-10-10 11:08:00 Yunier [facility] MAGNESIUM 2021-10-10 11:08:00 Yunier [facility] BASIC METABOLIC PANEL (NA, 2021-10-10 11:08:[address] [facility] K, CL, CO2, GLUCOSE, BUN, Medica l Branch CREATININE, [place]) CBC WITHOUT DIFF 2021-10-10 11:08:00 Yunier [facility] PHOSPHORUS 2021-10-10 11:08:00 Yunier [facility] MAGNESIUM 2021-10-10 11:08:00 Yunier [facility] BASIC METABOLIC PANEL (NA, 2021-10-10 11:08:[address] [facility] K, CL, CO2, GLUCOSE, BUN, Medica l Branch CREATININE, [place]) CBC WITHOUT DIFF 2021-10-10 11:08:00 Yunier [facility] CBC WITHOUT DIFF 2021-10-09 23:22:00 Yunier [facility] CBC WITHOUT DIFF 2021-10-09 23:22:00 Yunier [facility] CBC WITHOUT DIFF 2021-10-09 16:22:00 Yunier [facility] CBC WITHOUT DIFF 2021-10-09 16:22:00 Yunier [facility] TRANSFUSE PACKED RBC 2021-10-09 10:31:00 Aelxandra [facility] TRANSFUSE PACKED RBC 2021-10-09 10:31:00 Alexandra [facility] PREPARE PACKED RBC 2021-10-09 10:06:26 Clara [facility] PREPARE PACKED RBC 2021-10-09 10:06:26 Monsekellie [facility] PHOSPHORUS 2021-10-09 08:35:00 [facility] MAGNESIUM 2021-10-09 08:35:00 [facility] BASIC METABOLIC PANEL (NA, 2021-10-09 08:35:00 Marcela Khan [facility] [place] K, CL, CO2, GLUCOSE, BUN, Medica l Branch CREATININE, [place]) CBC WITHOUT DIFF 2021-10-09 08:35:00 Bill [facility] PHOSPHORUS 2021-10-09 08:35:00 [place], [facility] MAGNESIUM 2021-10-09 08:35:00 [place], [facility] BASIC METABOLIC PANEL (NA, 2021-10-09 08:35:00 Marcela [facility] [place] K, CL, CO2, GLUCOSE, BUN, Medica l Branch CREATININE, [place]) CBC WITHOUT DIFF 2021-10-09 08:35:00 Bill [facility] CBC WITHOUT DIFF 2021-10-09 01:26:00 Bill [facility] CBC WITHOUT DIFF 2021-10-09 01:26:00 Bill [facility] BASIC METABOLIC PANEL (NA, 2021-10-09 00:09:00 Marcela [facility] [place] K, CL, CO2, GLUCOSE, BUN, Medica l Branch CREATININE, [place]) BASIC METABOLIC PANEL (NA, 2021-10-09 00:09:00 Marcela [facility] [place] K, CL, CO2, GLUCOSE, BUN, Medica l Branch CREATININE, [place]) BASIC METABOLIC PANEL (NA, 2021-10-08 15:10:00 Yunier, Nicholas U [facility] K, CL, CO2, GLUCOSE, BUN, Medica l Branch CREATININE, [place]) CBC WITHOUT DIFF 2021-10-08 15:10:00 [facility]OL[facility] (NA, 2021-10-08 15:10:00 Yunier, Nicholas U [facility] K, CL, CO2, GLUCOSE, BUN, Medica l Branch CREATININE, [place]) CBC WITHOUT DIFF 2021-10-08 15:10:00 [facility] BASIC METABOLIC PANEL (NA, 2021-10-08 15:10:00 Yunier, Nicholas U [facility] K, CL, CO2, GLUCOSE, BUN, Medica l Branch CREATININE, [place]) CBC WITHOUT DIFF 2021-10-08 15:10:00 [facility] AC PANEL 20 + LACTIC ACID 2021-10-08 10:24:00 Dalia Carson [facility] AC PANEL 20 + LACTIC ACID 2021-10-08 10:24:00 Dalia Carson [facility] AC PANEL 20 + LACTIC ACID 2021-10-08 10:24:00 Dalia Carson [facility] PHOSPHORUS 2021-10-08 10:20:00 [facility] MAGNESIUM 2021-10-08 10:20:00 [facility] HEPATIC FUNCTION PANEL 2021-10-08 10:20:00 Sandra Carsonsay [facility] ([id number]) (ALB,T.PRO,BILI Medical Branch T,BU/BC,ALT,AST,ALK PHOS) BASIC METABOLIC PANEL (NA, 2021-10-08 10:20:[address] [facility] K, CL, CO2, GLUCOSE, BUN, Medica l Branch CREATININE, [place]) CBC WITH DIFF 2021-10-08 10:20:00 [facility] GLYCOSYLATED HEMOGLOBIN 2021-10-08 10:20:00 Yamileth [facility] (A1C) [facility] PROTHROMBIN TIME / INR 2021-10-08 10:20:00 Oxana Gupta [facility] ACTIVATED PARTIAL THRMPLAS 2021-10-08 10:20:00 Oxana Gupta [facility] FIBRINOGEN 2021-10-08 10:20:00 [facility] PHOSPHORUS 2021-10-08 10:20:00 [facility] MAGNESIUM 2021-10-08 10:20:00 [facility] HEPATIC FUNCTION PANEL 2021-10-08 10:20:00 Yamileth [facility] ([id number]) (ALB,T.PRO,BILI Medical Branch T,BU/BC,ALT,AST,ALK PHOS) BASIC METABOLIC PANEL (NA, 2021-10-08 10:20:00 Yamileth [facility] K, CL, CO2, GLUCOSE, BUN, Medica l Branch CREATININE, [place]) CBC WITH DIFF 2021-10-08 10:20:00 [facility] GLYCOSYLATED HEMOGLOBIN 2021-10-08 10:20:[facility] PROTHROMBIN TIME / INR 2021-10-08 10:20:00 xOana Gupta [facility] ACTIVATED PARTIAL THRMPLAS 2021-10-08 10:20:00 Oxana Gupta [facility] FIBRINOGEN 2021-10-08 10:20:00 [facility] PHOSPHORUS 2021-10-08 10:20:00 [facility] MAGNESIUM 2021-10-08 10:20:00 [facility] HEPATIC FUNCTION PANEL 2021-10-08 10:20:00 Yamileth [facility] ([id number]) (ALB,T.PRO,BILI Medical Branch T,BU/BC,ALT,AST,ALK PHOS) BASIC METABOLIC PANEL (NA, 2021-10-08 10:20:00 Yamileth [facility] K, CL, CO2, GLUCOSE, BUN, Medica l Branch CREATININE, [place]) CBC WITH DIFF 2021-10-08 10:20:00 [facility] GLYCOSYLATED HEMOGLOBIN 2021-10-08 10:20:00 Yamileth [facility] (A1C) [facility] PROTHROMBIN TIME / INR 2021-10-08 10:20:00 Oxana Gupta [facility] ACTIVATED PARTIAL THRMPLAS 2021-10-08 10:20:00 Oxana Gupta [facility] FIBRINOGEN 2021-10-08 10:20:00 [facility] PREPARE PLASMA 2021-10-08 09:48:16 [facility] 2021-10-08 09:48:16 [facility] 2021-10-08 09:48:16 Florencio Lr [facility] PREPARE PACKED RBC 2021-10-08 09:47:11 Jailene [facility] PREPARE PACKED RBC 2021-10-08 09:47:11 Jailene [facility] PREPARE PACKED RBC 2021-10-08 09:47:11 Jailene [facility] HB ECG ROUTINE & RHYTHM 2021-10-08 09:44:02 Yamileth [facility] HB ECG ROUTINE & RHYTHM 2021-10-08 09:44:02 Yamileth [facility] TRANSFUSE CRYOPRECIPITATE 2021-10-08 08:58:00 [facility] [place] Medical Branch TRANSFUSE CRYOPRECIPITATE 2021-10-08 08:58:00 [facility] [place] [facility] Branch TRANSFUSE CRYOPRECIPITATE 2021-10-08 08:58:00 [facility] [place] Medical Branch ABG+COOX+NA+K+GLU+CA2+ 2021-10-08 08:55:00 [facility]X+NA+K+GLU+CA2+ 2021-10-08 08:55:00 Florencio Lr [facility] PROTHROMBIN TIME / INR 2021-10-08 08:50:00 Judi Merino [facility] PROTHROMBIN TIME / INR 2021-10-08 08:50:00 Judi Merino [facility] PROTHROMBIN TIME / INR 2021-10-08 08:50:00 Judi Merino [facility] TRANSFUSE PLASMA 2021-10-08 08:31:00 [facility] TRANSFUSE PLASMA 2021-10-08 08:31:00 [facility] TRANSFUSE PLASMA 2021-10-08 08:31:00 Michael [facility] TRANSFUSE PACKED RBC 2021-10-08 08:28:[address] [facility] TRANSFUSE PACKED RBC 2021-10-08 08:28:[address] [facility] TRANSFUSE PACKED RBC 2021-10-08 08:28:[address] [facility] ABG+COOX+NA+K+GLU+CA2+ 2021-10-08 08:01:00 Florencio Lr [facility] ABG+COOX+NA+K+GLU+CA2+ 2021-10-08 08:01:00 Florencio Lr [facility] TRANSFUSE PLASMA (IN ML) 2021-10-08 07:55:00 Michael Andrews [facility] TRANSFUSE PLASMA (IN ML) 2021-10-08 07:55:00 Michael Andrews [facility] TRANSFUSE PACKED RBC 2021-10-08 07:50:[address] [facility] TRANSFUSE PACKED RBC 2021-10-08 07:50:[address] [facility] CBC WITHOUT DIFF 2021-10-08 07:46:00 Judi Merino [facility] EXTRA TUBE SST 2021-10-08 07:46:00 Florencio Lrh [facility] CBC WITHOUT DIFF 2021-10-08 07:46:00 Judi Merino [facility] EXTRA TUBE SST 2021-10-08 07:46:00 [facility] WITHOUT DIFF 2021-10-08 07:46:00 Judi Merino [facility] EXTRA TUBE SST 2021-10-08 07:46:00 [facility] ABG+COOX+NA+K+GLU+CA2+ 2021-10-08 07:43:00 Jailene Matias [facility] ABG+COOX+NA+K+GLU+CA2+ 2021-10-08 07:43:00 Jailene Matias [facility] TRANSFUSE PLASMA (IN ML) 2021-10-08 07:36:00 Michael Andrews [facility] TRANSFUSE PLASMA (IN ML) 2021-10-08 07:36:00 [facility] 2021-10-08 07:32:00 Judi Merino [facility] FIBRINOGEN 2021-10-08 07:32:00 Judi Merino [facility] FIBRINOGEN 2021-10-08 07:32:00 Judi Merino [facility] TRANSFUSE PACKED RBC 2021-10-08 07:30:00 Viviana Healy [facility] TRANSFUSE PLASMA (IN ML) 2021-10-08 07:30:00 Michael Andrews [facility] TRANSFUSE PACKED RBC 2021-10-08 07:30:00 Viviana Healy [facility] TRANSFUSE PLASMA (IN ML) 2021-10-08 07:30:00 Michael Andrews [facility] PREPARE CRYOPRECIPITATE 2021-10-08 07:24:24 Florencio Lr [facility] PREPARE CRYOPRECIPITATE 2021-10-08 07:24:24 Florencio Lr [facility] PREPARE CRYOPRECIPITATE 2021-10-08 07:24:24 Florencio Lr [facility] TRANSFUSE PACKED RBC 2021-10-08 07:22:[address] [facility] TRANSFUSE PACKED RBC 2021-10-08 07:22:00 [facility] TRANSFUSE PACKED RBC 2021-10-08 07:19:00 [facility] TRANSFUSE PACKED RBC 2021-10-08 07:19:[address] [facility] ABG+COOX+NA+K+GLU+CA2+ 2021-10-08 07:13:00 Addison Lruong [facility] ABG+COOX+NA+K+GLU+CA2+ 2021-10-08 07:13:00 Jailene Matias [facility] TRANSFUSE PLASMA (IN ML) 2021-10-08 07:08:00 Michael Andrews [facility] TRANSFUSE PLASMA (IN ML) 2021-10-08 07:08:00 Michael Andrews [facility] TRANSFUSE PLATELETS 2021-10-08 06:55:00 [facility] TRANSFUSE PLATELETS 2021-10-08 06:55:00 [facility] PREPARE PLATELETS 2021-10-08 06:44:36 Florencio Lr [facility] PREPARE PLATELETS 2021-10-08 06:44:36 [facility] 2021-10-08 06:44:36 Lr, Florencio [facility] EXPLORATORY LAPAROTOMY 2021-10-08 06:24:00 Wilber Judi G U [facility] EVACUATION HEMATOMA PELVIC 2021-10-08 06:24:00 Wilber Judi Milvia [facility] EXPLORATORY LAPAROTOMY 2021-10-08 06:24:00 Connie Merinoah Milvia U [facility] EVACUATION HEMATOMA PELVIC 2021-10-08 06:24:00 Judi Merino [facility] FIBRINOGEN 2021-10-08 06:17:00 [facility] FIBRINOGEN 2021-10-08 06:17:00 [facility] FIBRINOGEN 2021-10-08 06:17:00 [facility] AC PANEL 21 + LACTIC ACID 2021-10-08 06:14:00 Elizabeth [facility] AC PANEL 21 + LACTIC ACID 2021-10-08 06:14:00 Shazia [facility] AC PANEL 21 + LACTIC ACID 2021-10-08 06:14:00 Elizabeth Mcc[facility] BASIC METABOLIC PANEL (NA, 2021-10-08 06:12:00 Yadira Mccray [facility] K, CL, CO2, GLUCOSE, BUN, Medica l Branch CREATININE, [place]) CBC WITH DIFF 2021-10-08 06:12:00 Elizabeth [facility] PROTHROMBIN TIME / INR 2021-10-08 06:12:00 [facility] PART[facility] THRMPLAS 2021-10-08 06:12:00 Yadira Mccray [facility] FIBRINOGEN 2021-10-08 06:12:00 Elizabeth [facility] BASIC METABOLIC PANEL (NA, 2021-10-08 06:12:00 Yadira Mccray [facility] K, CL, CO2, GLUCOSE, BUN, Medica l Branch CREATININE, [place]) CBC WITH DIFF 2021-10-08 06:12:00 Elizabeth [facility] PROTHROMBIN TIME / INR 2021-10-08 06:12:00 [facility] THRMPLAS 2021-10-08 06:12:00 [facility]adira [facility] [facility] FIBRINOGEN 2021-10-08 06:12:00 [facility] BASIC METABOLIC PANEL (NA, 2021-10-08 06:12:00 Yadira Mccray [facility] K, CL, CO2, GLUCOSE, BUN, Medica l Branch CREATININE, CA) CBC WITH DIFF 2021-10-08 06:12:00 [facility] PROTHROMBIN TIME / INR 2021-10-08 06:12:00 [facility] PARTIAL THRMPLAS 2021-10-08 06:12:00 Yadira Mccray [facility] FIBRINOGEN 2021-10-08 06:12:00 [facility] EXTERNAL PROVIDER RECORDS 2021-10-08 05:01:00 Doctor Unassigned, [facility] Name [facility] EXTERNAL PROVIDER RECORDS 2021-10-08 05:01:00 Doctor Unassigned, [facility] Name [facility] EXTERNAL PROVIDER RECORDS 2021-10-08 05:01:00 Doctor Unassigned, [facility] Name [facility] TRANSFUSE PACKED RBC 2021-10-08 04:45:00 LyViviana [facility] TRANSFUSE PACKED RBC 2021-10-08 04:45:00 LyViviana [facility] MAGNESIUM 2021-10-08 04:36:00 Ly [facility] o f [facility] BASIC METABOLIC PANEL (NA, 2021-10-08 04:36:00 Ly, Viviana U [facility] K, CL, CO2, GLUCOSE, BUN, Medica l Branch CREATININE, CA) CBC WITH DIFF 2021-10-08 04:36:00 Ly, [facility] MAGNESIUM 2021-10-08 04:36:00 Ly, [facility] BASIC METABOLIC PANEL (NA, 2021-10-08 04:36:00 Ly, [facility] K, CL, CO2, GLUCOSE, BUN, Medica l Branch CREATININE, CA) CBC WITH DIFF 2021-10-08 04:36:00 Ly, [facility] MAGNESIUM 2021-10-08 04:36:00 Ly, [facility] BASIC METABOLIC PANEL (NA, 2021-10-08 04:36:00 Ly, [facility] K, CL, CO2, GLUCOSE, BUN, Medica l Branch CREATININE, CA) CBC WITH DIFF 2021-10-08 04:36:00 Ly, [facility] PREPARE PACKED RBC 2021-10-08 04:27:22 Ly, [facility] PREPARE PACKED RBC 2021-10-08 04:27:22 Ly, [facility] PREPARE PACKED RBC 2021-10-08 04:27:22 Ly, [facility] POCT GLUCOSE (AUTOMATED) 2021-10-08 03:51:00 Florencio Lr [facility] POCT GLUCOSE (AUTOMATED) 2021-10-08 03:51:00 Florencio Lr [facility] POCT GLUCOSE (AUTOMATED) 2021-10-08 03:51:00 Florencio Lr [facility] CBC WITH DIFF 2021-10-07 23:55:00 Hilario [facility] CBC WITH DIFF 2021-10-07 23:55:00 [facility] CBC WITH DIFF 2021-10-07 23:55:00 [facility] PREPARE PACKED RBC 2021-10-07 21:08:55 Naga [facility] PREPARE PACKED RBC 2021-10-07 21:08:55 Nielson, [facility] PREPARE PACKED RBC 2021-10-07 21:08:55 Naga [facility] SURGICAL PATHOLOGY EXAM 2021-10-07 20:37:00 Florencio L[facility] TRANSFUSE PACKED RBC 2021-10-07 17:19:00 Ronald [facility] TRANSFUSE PACKED RBC 2021-10-07 17:19:00 Roanld [facility] TRANSFUSE PACKED RBC 2021-10-07 17:19:00 Ronald [facility] INTUBATION 2021-10-07 16:49:00 Ronald [facility] LAPAROSCOPIC TOTAL 2021-10-07 16:12:00 [facility] ABDOM[facility] HYSTERECTOMY Medical B ranch LAPAROSCOPIC 2021-10-07 16:12:00 [facility] SAL[facility]O-OOPHORECTOMY Medical Br anch CYSTOSCOPY 2021-10-07 16:12:00 [facility] LAP[facility]OSCOPIC TOTAL 2021-10-07 16:12:00 Florencio Lr [facility] ABDOMINAL HYSTERECTOMY Medical B ranch LAPAROSCOPIC 2021-10-07 16:12:00 [facility] SALPINGO-OOPHORECTOMY Medical Br anch CYSTOSCOPY 2021-10-07 16:12:00 [facility] COMP. METABOLIC PANEL 2021-10-07 11:41:00 Alison Zamorano [facility] ([id number]) [facility] COMP. METABOLIC PANEL 2021-10-07 11:41:00 Alison Zamorano [facility] ([id number]) [facility] COMP. METABOLIC PANEL 2021-10-07 11:41:00 Alison Zamorano [facility] ([id number]) [facility] CBC WITH DIFF 2021-10-07 00:30:00 Alison Zamorano [place] [facility] PROTHROMBIN TIME / INR 2021-10-07 00:30:[address] [facility] ACTIVATED PARTIAL THRMPLAS 2021-10-07 00:30:00 [facility] 2021-10-07 00:30:00 [facility] CBC WITH DIFF 2021-10-07 00:30:00 [facility] PROTHROMBIN TIME / INR 2021-10-07 00:30:[address] [facility] ACTIVATED PARTIAL THRMPLAS 2021-10-07 00:30:00 [facility] 2021-10-07 00:30:00 [facility] CBC WITH DIFF 2021-10-07 00:30:00 [facility] PROTHROMBIN TIME / INR 2021-10-07 00:30:[address] [facility] ACTIVATED PARTIAL THRMPLAS 2021-10-07 00:30:00 [facility] FIBR[facility]EN 2021-10-07 00:30:00 [facility] HB ABO GROUPING 2021-10-06 21:00:00 [facility] HB ABO GROUPING 2021-10-06 21:00:00 [facility] HB ABO GROUPING 2021-10-06 21:00:00 Naga [facility] POCT TEST 2021-10-06 20:12:00 Eli Jack [facility] POCT TEST 2021-10-06 20:12:00 Eli Jack [facility] POCT TEST 2021-10-06 20:12:00 Patricia Jackhykellie Silva [facility] COVID-19 (ID NOW RAPID 2021-10-06 20:09:00 Florencio Lr [facility] TESTING Medical Branch LAB ONLY COVID 2021-10-06 20:09:00 Florencio Lrh [facility] COVID-19 (ID NOW RAPID 2021-10-06 20:09:00 [facility] LAB ONLY COVID 2021-10-06 20:09:00 Florencio Lr [facility] COVID-19 (ID NOW RAPID 2021-10-06 20:09:00 [facility] LAB ONLY COVID 2021-10-06 20:09:00 Florencio Lr [facility] HOSPITAL ADMISSION 2021-10-06 05:01:00 Doctor Unassigned, [facility] [place] Medical Branch Encounters Start End Encounter Admission Attending Care Care Encounter Source Date/Time Date/Time Type Type Clinicians Facility Department ID 2021-10-06 Inpatient R [facility] RECORD CHANGER TESTER [id number] Univers 14:42:00 [facility] 2021-10-06 Hospital Lr, 1.2.840.2 [id number] Univers 14:42:00 Encounter [facility] 44868.1.1 [facility] 3.104.2.7 [facility]3.350000 [facility] [place] 2021-10-06 Inpatient R [facility] RECORD CHANGER TESTER [id number] Univers 14:42:00 [facility] 2020-05-03 Inpatient UR Maria G, [facility] [id number] [facility] 03:53:00 [place] [address] [facility] 2022-02-17 2022-02-17 Patient Inga Fontenot 1.2.840.114 [id number] Univers 00:00:00 00:00:00 Outreach E ARCE 350.1.13.10 i [id number] [address] 2021-11-03 2021-11-03 Telephone LITTLE Loco 1.2.840.114 [id number] Univers 00:00:00 00:00:00 [facility] 350.1.13.10 i ty of [place] [id number] [facility] 113 Branch 2021-10-29 2021-10-29 Outpatient R [facility] [id number] Univers 14:15:00 14:15:00 ity of [facility] 2021-10-21 2021-10-21 Out[facility] [id number] Univers 14:45:00 14:45:00 NICOLE ity of [facility] 2021-10-21 2021-10-21 Telephone Pgy3 UNIVERSIT 1.2.840.114 [id number] Univers 00:00:00 00:00:00 Y [facility] 350.1.13.10 i ty of [place] [id number] [facility] 113 Branch 2021-10-13 2021-10-13 Transition MARY Richard 1.2.840.114 [id number] Univers 00:00:00 00:00:00 of Care Sandi ARCE 350.1.13.10 [place] [id number] [facility] 403 Branch 2021-10-13 2021-10-13 Transition MARY Richard 1.2.840.114 [id number] Univers 00:00:00 00:00:00 of Care Sandi ARCE 350.1.13.10 [place] [id number] [facility] 403 Branch 2021-10-06 2021-10-12 Inpatient R ALDAIR, [facility] RECORD CHANGER TESTER [id number] Univers 14:42:00 14:14:00 NGOC ity of [facility] 2021-10-06 2021-10-12 Hospital Florencio Lr 1.2. 840.114 [id number] Univers 14:42:00 14:14:00 Encounter Ngoc Quinteros 350.1.13.10 ity of HOSPITAL 4.2.7.2.686 Eladio as [id number] [facility] 091 Branch 2021-10-08 2021-10-08 Surgery OC Merino 1.2.840.114 [id number] Univers 01:30:00 03:41:00 Judi Steel ISRAEL 350.1.13.10 it y of [facility] 4.2.7.2.686 Eladio as [id number] [facility] 103 Branch 2021-10-07 2021-10-07 Surgery Lr, 1.2.840.3 [id number] Univers 11:40:00 16:17:00 Matias 52214.1.1 ity of [facility] 3.104.2.7 [place] .3.974610 Medica l .8 Branch 2021-10-07 2021-10-07 Surgery LrDYLAN parishNIE 1.2.840.114 [id number] Univers 11:40:00 16:17:00 Matias ISRAEL 350.1.13.10 it y of [facility] 4.2.7.2.686 Eladio as [id number] [facility] 103 Branch 2021-10-07 2021-10-07 Anesthesia Johanny Martel 1.2.840.114 [id number] Univers 11:39:00 15:55:00 Event Chanel Fabian 350.1.13.10 ity of [facility] 4.2.7.2.686 Eladio as [id number] [facility] 103 [place] 2021-10-06 2021-10-06 Orders Doctor JARAD 1.2.840.114 [id number] Univers 00:00:00 00:00:00 Only Unassigned, ISRAEL 350.1.13.10 ity of [place] [facility] 4.2.7.2.686 Eladio as [id number] [facility] 009 Branch 2021-10-05 2021-10-05 Travel 1.2.840.1 1.2.252.311 [id number] Univers 00:00:00 00:00:00 23037.1.1 350.1.13.10 ity of 3.104.2.7 4.[place].3.698 [place] .3.605949 084.8 Medica l .8 Branch 2021-10-04 2021-10-04 Transition [place], 1.2.840.0 [id number] Univers 00:00:00 00:00:00 of Care Erma Monroe 14021.1.1 ity of 3.104.2.7 [place] .3.730517 Medica l .8 [place] 2021-10-04 2021-10-04 Patient Cruz, 1.2.840.8 [id number] Univers 00:00:00 00:00:00 Secure Msg Matias 02831.1.1 i ty of 3.104.2.7 [place] .3.460098 Medica l .8 [place] 2021-09-27 2021-10-02 Inpatient X CRUZ, [facility] RECORD CHANGER TESTER [id number] Univers 20:32:00 05:30:00 MATIAS ity [facility] 2021-09-27 2021-10-02 Inpatient X CRUZ, [facility] RECORD CHANGER TESTER [id number] Univers 20:32:00 05:30:00 MATIAS ity [facility] 2021-09-27 2021-10-02 Hospital Cruz, 1.2.840.3 [id number] Univers 20:32:00 05:30:00 Encounter Matias 29988.1.1 it y of 3.104.2.7 [place] .3.616362 Medica l .8 [place] 2021-09-27 2021-09-27 Travel 1.2.840.1 1.2.663.042 [id number] Univers 00:00:00 00:00:00 35568.1.1 350.1.13.10 ity of 3.104.2.7 4.2.7.3.698 [place] .3.619818 084.8 Medica l .8 [place] 2021-09-14 2021-09-14 Outpatient Chaparro LOCO [facility] [id number] Univers 14:00:00 14:00:00 [facility] ity [facility] 2021-09-14 2021-09-14 Outpatient Chaparro [facility] [id number] Univers 14:00:00 14:00:00 [facility] ity [facility] 2021-09-14 2021-09-14 Patient Doctor 1.2.840.9 [id number] Univers 00:00:00 00:00:00 Secure Msg Unassigned, 11743.1.1 ity of [place] 3.104.2.7 [place] .3.129812 Medica l .8 [place] 2021-09-04 2021-09-04 Orders Doctor 1.2.840.3 [id number] Univers 00:00:00 00:00:00 Only Unassigned, 20178.1.1 ity of [place] 3.104.2.7 [place] .3.196501 Medica l .8 [place] 2021-08-27 2021-08-27 Transition Richard, 1.2.840.5 [id number] Univers 00:00:00 00:00:00 of Care Sandi 54010.1.1 i ty of 3.104.2.7 [place] .3.649168 Medica l .8 [place] 2021-08-24 2021-08-26 Inpatient X [facility] RECORD CHANGER TESTER [id number] Univers 03:17:00 15:30:00 MATIAS ity of [facility] 2021-08-24 2021-08-26 Inpatient X [facility] RECORD CHANGER TESTER [id number] Univers 03:17:00 15:30:00 MATIAS ity of [facility] 2021-08-24 2021-08-26 [facility], 1.2.840.9 [id number] Univers 03:17:00 15:30:00 Encounter Matias 89306.1.1 it y of [place] 3.104.2.7 [place] .3.786534 Medica l .8 [place] 2021-08-24 2021-08-24 Travel 1.2.840.1 1.2.248.096 [id number] Univers 00:00:00 00:00:00 43129.1.1 350.1.13.10 ity of 3.104.2.7 4.2.7.3.698 [place] .3.116742 084.8 Medica l .8 [place] 2021-05-04 2021-05-05 Emergency EM [place], [facility]01 [id number] [facility] 01:14:00 14:01:00 Nicole [facility] 2021-03-02 2021-03-[address] [facility] ERT [id number] Univers 22:11:00 22:41:00 ity [facility] 2020-08-25 2020-08-26 [id number] Memoria 02:37:00 18:00:00 DEBRA Riossara Oleary [facility] l 2020-07-06 2020-07-06 [facility] 1.2.840.114 [id number] Univers 00:00:00 00:00:00 Outreach Bird PRIMARY 350.1.13.10 i ty of [facility] [place]2.7.2.[place] [id number] Ok dical [address] [place] 2019-07-13 2019-07-13 Nurse JARAD Douglas 1.2.840.114 [id number] 00:00:00 00:00:00 Triage Aracelis ISRAEL 350.1.13.10 HOSPITAL 4.2.7.2.686 [id number] 2019-07-13 2019-07-13 JARAD Santamaria 1.2.840.114 [id number] 00:00:00 00:00:00 Triage Melinda Leta WOOD 350.1.13.10 [facility] 4.2.7.2.686 [id number] 2019-07-13 2019-07-13 Nurse JARAD Douglas 1.2.840.114 [id number] Univers 00:00:00 00:00:00 Triage Aracelis ISRAEL 350.1.13.10 it y of [facility] 4.2.7.2.686 Eladio as [id number] [address] 2019-07-13 2019-07-13 JARAD Santamaria 1.2.840.114 [id number] Univers 00:00:00 00:00:00 Triage Melinda Leta WOOD 350.1.13.10 i ty of [facility] 4.2.7.2.686 Eladio as [id number] [address] 2018-12-31 2019-01-01 [facility] 1.2.321.705 [id number] 21:55:55 14:19:00 Encounter Jesse WOOD 350.1.13.10 [place] 4.2.7.2.686 [id number] [facility] 2018-12-31 2019-01-01 [facility] 1.2.606.088 [id number] [facility] 21:55:55 14:19:00 Encounter Jesse WOOD 350.1.13.10 ity of [facility] 4.2.7.2.[place] [id number] [address] 2018-12-31 2018-12-31 Nurse Visit, [facility] 1.2.840.114 [id number] 15:10:27 15:53:28 Visit Jerel [employer] 350.1.13.10 Nurse [facility] 4.2.7.2.686 MATERNAL [id number] & CHILD 107 [facility] 2018-12-31 2018-12-31 Nurse Visit, Jerel Nurse [facility] 1.2 .840.114 [id number] [facility] 15:10:27 15:53:28 Visit Allie Miller [employer] 350.1.13. 10 ity of [facility] 4.2.7.2.686 Eladio as MATERNAL [phone] Med ical & CHILD [address] [place] [address] 2018-12-31 2018-12-31 Telephone AMANDA Duran 1.2.840.114 [id number] 00:00:00 00:00:00 Rimma Guadalupe [employer] 350.1.13.10 [facility] 4.2.7.2.686 MATERNAL [id number] & CHILD 107 [facility] 2018-12-31 2018-12-31 Telephone JARAD Upton 1.2.840.114 [id number] 00:00:00 00:00:00 Gilson WOOD 350.1.13.[address] [facility] 4.2.7.2.686 [id number] 013 2018-12-31 2018-12-[address] [facility] 1.2.840.114 [id number] [facility] 00:00:00 00:00:00 Rimma N [employer] 350.1.13.10 it y of [facility] 4.2.7.2.686 Eladio as MATERNAL [id number] [facility] ical & CHILD [address] [place] [address] 2018-12-31 2018-12-31 Telephone WonJARAD aranda 1.2.840.114 [id number] Univers 00:00:00 00:00:00 Gilson WOOD 350.1.13.10 i ty [facility] 4.2.7.2.686 Eladio as [id number] [facility] 013 [place] 2018-12-28 2018-12-29 Emergency [facility] 1.2.752.515 [id number] 19:29:15 00:59:00 Alla [place] 350.1.13.10 [place] 4.2.7.2.686 [place] [id number] [facility] 2018-12-28 2018-12-29 Emergency [facility], [facility] 1.2.343.875 [id number] [facility] 19:29:15 00:59:00 Alla Lopez 350.1.13.10 ity [facility] 4.2.7.2.686 [facility] [id number] [address] 2018-12-28 2018-12-28 Nurse Visit, [facility] 1.2.840.114 [id number] 12:55:55 13:47:08 Visit Jerel [employer] 350.1.13.10 Nurse [facility] 4.2.7.2.686 MATERNAL [id number] & CHILD [address] [place] [address] 2018-12-28 2018-12-28 [facility] 1.2 .840.114 [id number] [facility] 12:55:55 13:47:08 Visit Max Velarde [employer] 350.1.13.10 ity of [facility] 4.2.7.2.686 Eladio as MATERNAL [phone] [facility] ical & CHILD [address] [place] [address] 2018-12-20 2018-12-24 Hospital JARAD Lizama 1.2.840.114 [id number] 18:42:00 13:40:00 Encounter Ree WOOD 350.1.13.10 ANN[place] 4.2.7.2.686 [id number] 2018-12-20 2018-12-24 [facility] JARAD Lizama 1.2.840.114 [id number] Univers 18:42:00 13:40:00 Encounter Ree WOOD 350.1.13.10 ity of [place].7.2.686 [place] [id number] [address] 2018-12-20 2018-12-20 Vacuum Bottle Assembler Ultrasound, Ang-Mfm [facility] 1.2 .840.114 [id number] [facility] 11:12:37 11:42:37 Visit Mila Ferguson [employer] 350.1.13.10 ity of Jesse Woods [facility] 4.2.7.2.686 [place] MATERNAL [id number] [facility] ical & CHILD 369 [facility] 2018-12-20 2018-12-20 Vacuum Bottle Assembler Ultrasound, [facility] 1.2.840.114 [id number] 11:12:37 11:42:37 Visit Ang-Mfm [employer] 350.1.13.10 REGIONAL 4.2.7.2.686 MATERNAL [id number] & CHILD 369 [facility] 2018-12-20 2018-12-20 Routine Risk, Ztr-Dwmtu-Ov/High [facility] 1. 2.840.114 [id number] Univers 10:20:16 11:05:03 Mila Ferguson [employer] 350.1.13.10 ity of Visit REGIONAL 4.2.7.2.686 Eladio as MATERNAL [id number] [facility] ical & CHILD 107 [facility] 2018-12-20 2018-12-20 Routine Risk, [facility] 1.2.840.114 [id number] 10:20:16 11:05:03 Ang-Rmchp-N [employer] 350.1.13.10 Visit p/High REGIONAL 4.2.7.2.686 MATERNAL [id number] & CHILD 107 [facility] 2018-12-18 2018-12-18 Routine Velarde, [facility] 1.2.840.114 [id number] Univers 12:50:29 14:00:55 Roshunda R [employer] 350.1.13.10 ity of Visit REGIONAL 4.2.7.2.686 Eladio as MATERNAL [phone] Med ical & CHILD 107 [facility] 2018-12-18 2018-12-[address] [facility] 1.2.840.114 [id number] 12:50:29 14:00:55 Marynda R [employer] 350.1.13.10 Visit REGIONAL 4.2.7.2.686 MATERNAL [id number] & CHILD 107 [facility] 2018-12-13 2018-12-13 Routine [facility] Resident UNIVERSIT 1.2.8 40.114 [id number] Univers 13:28:19 14:24:11 Inga Moore Y HEALTH 350.1. 13.10 ity of [facility] 4.2.7.2.686 [place] Clark Chacorta Abrams [phone] [address] 2018-12-13 2018-12-13 Routine [facility] UNIVERSIT 1.2.840.114 [id number] 13:28:19 14:24:11 Resident Y HEALTH 350.1.13.10 Visit [facility] 4.2.7.2.686 [id number] 113 2018-12-13 2018-12-13 Vacuum Bottle Assembler 2, [facility] Room UNIVERSIT 1 .2.840.114 [id number] [facility] 12:48:28 13:23:20 Visit Inga Moore HEALTH 350.1.1 3.10 ity of [facility] 4.2.7.2.686 [place] [id number] [address] 2018-12-13 2018-12-13 Vacuum Bottle Assembler 2, [facility] UNIVERSIT 1.2.840.11 [id number] 12:48:28 13:23:20 Visit Us Room Y HEALTH 350.1.13.10 CLINICS 4.2.7.2.686 [id number] [facility] 2018-12-13 2018-12-13 Orders Doctor ABRAHAM 1.2.840.114 [id number] Univers 00:00:00 00:00:00 Only Unassigned, ISRAEL 350.1.13.10 ity of [place] [facility] 4.2.7.2.686 Eladio as [id number] [facility] 009 [place] 2018-12-13 2018-12-13 Orders Doctor JARAD 1.2.840.114 [id number] 00:00:00 00:00:00 Only Unassigned, [place] 350.1.13.10 [place] [facility] 4.2.7.2.686 [id number] 2018-12-11 2018-12-11 Case JARAD Chris 1.2.840.114 [id number] Univers 00:00:00 00:00:00 Management Ruba ISRAEL 350.1.13.10 ity of HOSPITAL 4.2.7.2.686 Eladio as [id number] [facility] 013 [place] 2018-12-11 2018-12-11 Case JARAD Chris 1.2.840.114 [id number] 00:00:00 00:00:00 Management Ruba ISRA[place] 350.1.13.10 HOSPITAL 4.2.7.2.686 [id number] 2018-12-10 2018-12-10 Routine Faculty, [facility] 1.2 .840.114 [id number] [facility] 10:35:35 11:46:44 Jesse Woods [employer] 350.1.13.10 ity of Visit [facility] 4.2.7.2.686 Eladio as MATERNAL [id number] Med ical & CHILD [address] [place] [address] 2018-12-10 2018-12-10 Routine Faculty, [facility] 1.2.840.114 [id number] 10:35:35 11:46:44 [facility] [employer] 350.1.13.10 Visit [facility] 4.2.7.2.686 MATERNAL [phone] & CHILD [address] [place] [address] 2018-12-06 2018-12-06 Vacuum Bottle Assembler Ultrasound, [facility] 1.2 .840.114 [id number] [facility] 11:40:06 12:10:06 Visit Marycruz Quevedo [employer] 350.1.13.10 ity of REGIONAL 4.2.7.2.686 Eladio as MATERNAL [phone] Med ical & CHILD 369 [facility] 2018-12-06 2018-12-06 Vacuum Bottle Assembler Ultrasound, [facility] 1.2.840.114 [id number] 11:40:06 12:10:06 Visit Evan [employer] 350.1.13.10 REGIONAL 4.2.7.2.686 MATERNAL [phone] & CHILD 369 [facility] 2018-12-06 2018-12-06 Routine Risk, Piu-Dfvmn-Jp/High [facility] 1. 2.840.114 [id number] [facility] 10:02:15 11:39:46 QuevdeoMarycruz kinsey Bubba [employer] 350.1.13.10 ity of Visit REGIONAL 4.2.7.2.686 Eladio as MATERNAL [phone] [facility] ical & CHILD 107 [facility] 2018-12-06 2018-12-06 Routine Risk, [facility] 1.2.840.114 [id number] 10:02:15 11:39:46 Liliap-N [employer] 350.1.13.10 Visit p/High REGIONAL 4.2.7.2.686 MATERNAL [phone] & CHILD 107 [facility] 2018-12-03 2018-12-03 [facility] Lorrie Olmos [facility] 1.2.840.114 [id number] [facility] 13:57:00 16:45:00 Encounter Cam [place] 350.1.13.10 ity of [place] 4[place]2.7.2.[place] [phone] [address] 2018-12-03 2018-12-03 [facility] Lorrie Olmos [facility] 1.2.840.114 [id number] 13:57:00 16:45:00 Encounter Cam [place] 350.1.13.10 [place] 4.2.7.2.686 [place] [phone] [facility] 2018-12-03 2018-12-03 Routine Faculty, Ad Real [facility] 1.2 .840.114 [id number] [facility] 09:27:42 10:36:46 Kyle Cordero [employer] 350.1.13. 10 ity of Visit REGIONAL 4.2.7.2.686 Eladio as MATERNAL [phone] Med ical & CHILD 107 [facility] 2018-12-03 2018-12-03 Routine Faculty, [facility] 1.2.840.114 [id number] 09:27:42 10:36:46 Ang Rmchp [employer] 350.1.13.10 Visit [facility] 4.2.7.2.686 MATERNAL [phone] & CHILD 107 [facility] 2018-11-29 2018-11-29 Routine Risk, Qqv-Pstft-Mc/High [facility] 1. 2.840.114 [id number] [facility] 12:45:37 13:38:16 Mila Ferguson [employer] 350.1.13.10 ity of Visit REGIONAL 4.2.7.2.686 Eladio as MATERNAL [phone] [facility] ical & CHILD 107 [facility] 2018-11-29 2018-11-29 Routine Risk, [facility] 1.2.840.114 [id number] 12:45:37 13:38:16 Ang-Rmchp-N [employer] 350.1.13.10 Visit p/High REGIONAL 4.2.7.2.686 MATERNAL [phone] & CHILD [address] [place] [address] 2018-11-29 2018-11-29 Vacuum Bottle Assembler [facility] 1.2 .840.114 [id number] [facility] 11:09:01 11:48:17 Visit Calvin Patel [employer] 350.1.13.10 ity of REGIONAL 4.2.7.2.686 Eladio as MATERNAL [phone] Med ical & CHILD 369 [facility] 2018-11-26 2018-11-26 Routine Faculty, Ang Rmchp [facility] 1.2 .840.114 [id number] [facility] 10:07:03 11:06:11 Teresa Inga Siddiquie [employer] 350.1.1 3.10 ity of Visit REGIONAL 4.2.7.2.686 Eladio as MATERNAL [phone] [facility] ical & CHILD 107 [facility] 2018-11-22 2018-11-22 Vacuum Bottle Assembler 5, [facility] Us Room UNIVERSIT 1 .2.840.114 [id number] [facility] 10:44:00 11:48:35 Visit Inga Moore [facility] 350.1.1 3.10 ity of Alison Reis [facility] 4.2.7.2.686 [place] [phone] [facility] [address] [place] 2018-11-22 2018-11-[address] [facility] 1.2.602.088 [id number] [facility] 08:04:45 09:05:49 Rimma Guadalupe [employer] 350.1.13.10 i ty of Visit [facility] 4.2.7.2.686 Eladio as MATERNAL [phone] [facility] ical & CHILD [address] [place] [address] 2018-11-19 2018-11-19 [facility] Lorrie Olmos [facility] 1.2.840.114 [id number] [facility] 12:24:36 16:05:00 Encounter Damien Presidio 350.1.13.10 ity of [place] 4.2.7.2.686 [facility] [phone] [place] [address] [place] 2018-11-19 2018-11-19 Routine Faculty, Ad Samson [facility] 1.2 .840.114 [id number] [facility] 09:18:45 10:07:14 Alison Reis [employer] 350.1.13.10 ity of Visit [facility] 4.2.7.2.686 Eladio as MATERNAL [phone] [facility] & CHILD [address] [place] [address] 2018-11-15 2018-11-15 Routine Faculty, Ad Samson [facility] 1.2 .840.114 [id number] Univers 13:56:25 15:11:31 Modesto De La Rosa [employer] 350.1.13.10 ity of Visit [facility] 4.2.7.2.686 Eladio as MATERNAL [phone] [facility] & CHILD [address] [place] [address] 2018-11-14 2018-11-14 Vacuum Bottle Assembler [facility] 1.2 .840.114 [id number] [facility] 10:38:34 11:32:09 Visit Alison Reis [employer] 350.1.13.10 ity of [facility] 4.2.7.2.686 Eladio as MATERNAL [phone] Med ical & CHILD 369 [facility] 2018-11-12 2018-11-12 Routine Faculty, [facility] 1.2 .840.114 [id number] [facility] 10:38:07 12:09:10 Inga Moore [employer] 350.1.1 3.10 ity of Visit [facility] 4.2.7.2.686 Eladio as MATERNAL [phone] Med ical & CHILD 107 [facility] 2018-11-01 2018-11-01 Case LITTLE Woodall [id number] [id number] [facility] 00:00:00 00:00:00 Management Vidhi Kevin [facility] 350.1.13.10 ity of CLINICS 4.2.7.2.686 Noé s [phone] [facility] [address] [place] Results Test Description Test Time Test Comments Results Result Comments Source SURGICAL PATHOLOGY EXAM 2021-10-12 16:25:43 Test Item Value Reference Range Interpretation Comme nts Case Report (test code = 1267912438) Surgical Pathology ?Case: [id number] ? Authorizing Provider: ?Florencio Lr MD ? Collected: ? 10/07/2021 1537 ?Ordering Location: ? ? [facility] OR ? Received: ?10/07/2021 1807 ? Department ? Pathologist: ? Catherine Moore, ? MD ? Specimen: ? ?UTERINE BODY W/OVARY AND FALLOPIAN TUBE, LEFT, Left ovary ? Final Diagnosis (test code = m2ohiEKaLLHlw7qsPSUfuTPdFxGpZzMiYgZaSy pc [id number]) dWMxIHtccnRmMVxlcGljOTYwMlxhbnNpXHNwbHRw Z4OmhauhJMndYY5tVO6dbNdmpIJraNIhNVNfSpHd h3jbd202zHAav1paRUWZjeollIm2aYjlO97vz8N1 ByfzK53klGXzEYL3KLGzKTVdnQNkLHAjUWD7WNWp tYWhB9yuLPVuOM8djkqlOIddUKeeCATiwWX0WSHr kTKwK5BgZTZeJCxvNRBazbk9NxTjWd3qvNZaeKai MFxwYXJkXHBsYWluXGZzMjBccGFyIEEuIFVURVJV UywgQklMQVRFUkFMIEZBTExPUElBTiBUVUJFUywg WJLKOGSAVfUSRSriYPyNSFODUDNCW29EIBKMSAlO CFJEELupD2NADWyKO7NPPL6DCZEPXxJzBPYCGWJF C9KZG4JFA8AOOBr8SInqBLQvSCLsHJ4zJ8LAXfbT RjSMK2WSERRVGdWFWP7DNFESC93rU4wVDARGOZGR XgKYOU2DFIQBFRLMWiKVVOvVKSiBKmFQNWJTLDGb LVHocfDiUWStCXKRKcHINXPRHcaHICdpH0IWChLB W6DNBSEKZJPXHCgkXBZuVNWlVU5qDNgRDAWKEawO RVylWOAFKg7AIK0MPLKvaMYiWJOjXOGhDCIJREhA SNkFHvUIVFXQAvfqESOEVMJRHvYQMMKAC9WurOOb NJKaFPWgEPwGDbBaJ9PCBvj4FTTLX1RKWhHOS5lP SUNMRVMgXHBhciAgICAgLSBJTlRSQUFSVEVSSUFM AUHLCn3PQNbFAWfPQlSLTKGFZhhYTXKWGGUOWCyY EQIDMIDdzksmIKLqMWGfbb42ODO6LcKda2G6DLTy HcVnWRMmKG9yiYfqIPSfNV5sGWNdV9bsdR1ivzd0 SmBaXMIoVvU0YEBlzaH1Bog4QMXkTHlxr2jby1Zx E4IxoNVbhDw7m0wlRBJpMcP7sNXaODbaM2gbwwFp tNHoOHWlHNt6zTmhXrZdXVXkg5libaZuRwDfVTRq TCGgLBTfbVniahu1nB73DKWatX9nnPSqQKcyekHj XyM8FEhiJWBxMyA6FUUusZUmGEKxN4krONGtTQhd EFGxZMnteBZuCQZ6oPjla4L6nJNzrIGjvZcjOdNm XwIpLKSCi6FeMCl2uFozS5ZfNMFnQcW1xDBuIWJh GTamSYZaGWKybtS5eJ31LTqsbaJ9jDJpb3Oph21g b067bN6juIYhAEB7WAMcGEFloQNyEURnCJF3KSQm wKFpI4qqHPTsVW4rqjdvJEwfHKytHQKvjWB9CCOv rKEuC3GzDKHxONpaYLKfdjs5NgMoSe0fqGEbtFge PVsnh3yhs3cnfTVzMhn5TFNoOcXoCwuyONemw8Pe a8qpBPCfcz1aZXK2hNAngRrma4J2eJDyCHNsgQKh wtIuREUtGbG8DPbbAE4aus26YGGjLGU5zx4moTPf nBiwisYyfZLkARepP7BbLKAvk691PMGkP9NfUARd n6J3mlLvTmKlZYZczZV8gpN1RPWkVLp3pMGlecA2 juQmnKLrQ3osoM5rVVXpXQ2fxjesp7jhSZeqGRcj KEZwuLQ6xlK5EXTnoOHwP1VvsF3nYEOcMNclZPBi wxv7OsJdCc4ysJWthHvtLMwtFujaIPxcIHClboGl bnRccGduZGVjXHBsYWluXHBsYWluXGYwXGZzMjRc rJgsnLmorH0uTeXrExOuPWulBN4cMSJhY0befAUl TLTaJQBaR8reQcLuuC4viOniUSrbIiQeXyJzPOhl YWCzRMZgNHMkNUZdvwEuthIzqIzxjrF8tVR7ROTi AQmeHFBoDAFdpRCsgl3lfObdBFGuZM3cEIPisgGe GCdblWinXCauXPT5DHVbpNNujSGmxGYyCTAxkONr NBBkWNXybQSiWRKcaSvzb2Zhr2EtkJE1uJ2qw1ul u9QiQHUibSN6AU94bhI6gZ5bWFWqUH0oAUIxXA5a eWZzbKDhTFMmv60gmAinigEfKWCrynZmBHPuWHjp XGYyXGZzMjhcbGFuZzEwMzNcaGljaFxmMlxkYmNo QGHmOBijB9dcXaGdKqZlJHcwVQI9dS== Clinical Information (test code = menorrhagia 3887684106) Gross Description (test code = i1ihqLGoSFQnmSZ5YjDyEHYac1qgy8WjuLQi cGFy 2329750705) [file] W2PlscO0MTRkpo3= Disclaimer (test code = 5340706649) x6lwlNGhFYOhp9ckOCChlBNjXmEpQzG cZnRuYmpc uNEpGReyxuXgFIxji1HzG2DcEqZlLWedvtFhEJQq VefwwzarFMRnKOS2jzRlGDDvSFaiFLZwNTuaFp5z dJOnaAadMfIzKEEsb9uzheHEMAdmEyAtV580MIVk WQrme7bbm4UsKSRonIKzo4D4KVWKsnsehPz8xEnt F07zo4Q0YepmJ8drGNRvCYSaL3VcDY3oUBBfFse6 RTN2UJK6TRYqFCFoV2ShMM4vWKEpcEWdDQf5i9xa fCriAPCnOXE3l3lsPKtbxtZjTY9rwm7bkWo9v9lp xjKfQDVdVWGyxTIDFBArF7WryVdbMb1vbWs8hPwy JkkzUGE4Mda9DI6xmy54iaz4xSngEDNsxmsdDqA9 VAiwFUInrjlcJOb1NRtdWPIkaJW7KIIqlYEwA0Ml RVKaCU0xryd0JFZ4AKdlMPFqHsC6JLDepRKyMTTf eQlgLDoxw124OJN7VgPpRW6lJ6Eef9I4kU1haAIm MQSohDSuXpWnKAWvwn2ifXWgCZrzc9GlQIP7hxB3 wIWmfTAwLAYhGQ86Ruuop6LlVpvcq4TrL12mlYA5 FOuos0qjQS4kNlI1vpCnMZjcb3whoC8yUaZ4FCrs XC0zPK7eJBZuzI6znmuhGMVqBgAllsssHYAorFkm wfLsBk8ewVhlFTV2NGdhL7jjoW2dXxK3QMzuL5mt gA9pUMp4CKsbfYO7NXFrzE6xLW8reuiky3mvERmi LXioUUFzhsW0yjI4TCAfqHMxX3MppS8yLRLsJW7y pepqe3boFRZ4SOwfZQOqHUU8TnSbCMZiv5Xminq9 DfAvb8ZmaNQkSMtjT41eh575BIQittRdK9firOEr mbmycDCrvqazEPavkjQ4AHYspeFhr0WnOPXlDPR1 SSdbSCrguYUuNTSqoUdqr0kfO5BzaVOgQPEdAKoi XGYxXGZzMjBcbGFuZzEwMzNcaGljaFxmMVxkYmNo [file] Y6soMkLoqR6nlMteMKlrUaAjSwDsVEouGRE3eK== Embedded Images (test code = 0967381314) [facility] WITH [id number] 11:52:00 Test Item Value Reference Range Interpretation [...] RDW-SD (test code = 49.1 fL 39.0-49.9 87213-0) RDW-CV (test code = 17.5 % 12.0-15.5 H 788-0) PLT (test code = See_Comment L [Automated 777-3) message] The sy stem which generated this result transmitted reference range : 166 - 358 10*3/ ?L. The reference r susan was not used to interpret this result as normal/abnormal . MPV (test code = 10.3 fL 9.5-12.9 24793-4) NRBC/100 WBC (test See_Comment [Automat ed code = 9732684831) message] The system which generated this result transmitted reference range : 0.0 - 10.0 /100 WBCs. The refer ence range was not u sed to interpret th is result as normal/abnormal . NRBC x10^3 (test code <0.01 See_Comment [Auto mated = 1110089255) message] The s ystem which generated this result transmitted reference range : 10*3/?L. The reference range was not used to interpret this result as normal/abnormal . GRAN MAT (NEUT) % 63.9 % (test code = 770-8) IMM GRAN % (test code 0.20 % = 7834413276) LYMPH % (test code = 23.4 % 736-9) MONO % (test code = 9.6 % 5905-5) EOS % (test code = 2.5 % 713-8) BASO % (test code = 0.4 % 706-2) GRAN MAT x10^3(ANC) 3.28 10*3/uL 1.88-7.09 (test code = 7905028028) IMM GRAN x10^3 (test <0.03 0.00-0.06 code = 1153711201) LYMPH x10^3 (test code 1.20 10*3/uL 1.32-3.29 L = 731-0) MONO x10^3 (test code 0.49 10*3/uL 0.33-0.92 = 742-7) EOS x10^3 (test code = 0.13 10*3/uL 0.03-0.39 711-2) BASO x10^3 (test code <0.03 0.01-0.07 = 704-7) Lab Interpretation Abnormal (test code = 59866-3) [facility] WITHOUT [id number] 00:47:16 Test Item Value Reference Range Interpretation Comments WBC (test code = 6690-2) See_Comment [A utomated message] The system [employer] generated this result transmit ramana reference range : 4.30 - 11.10 10*3/?L. The reference range was not used to interpret this result as normal/abnormal . RBC (test code = 789-8) See_Comment L [Au tomated message] The system [employer] generated this result transmit ramana reference range [...] See_Comment L [Au tomated message] The system [facility] generated this result transmit ramana reference range : 166 - 358 10*3/?L. The reference range was not used to interpret this result as normal/abnormal . MPV (test code = 11.5 fL 9.5-12.9 28785-0) RDW-CV (test code = 16.1 % 12.0-15.5 H 788-0) RDW-SD (test code = 50.6 fL 39.0-49.9 H 00117-0) NRBC x10^3 (test code = <0.01 See_Comment [Au tomated message] 7747688514) The system [employer] generated this result transmit ramana reference range : 10*3/?L. The reference range was not used to interpret this result as normal/abnormal . NRBC/100 WBC (test code See_Comment [Au tomated message] = 6068785418) The system [facility] generated this result transmit ramana reference range : 0.0 - 10.0 /100 WBC s. The reference r susan was not used to interpret this result as normal/abnormal . IPF % (test code = 3160125259) Lab Interpretation (test Abnormal code = 71042-0) [facility] WITHOUT [id number] 00:47:16 Test Item Value Reference Range Interpretation Comments WBC (test code = 6690-2) See_Comment [A utomated message] The system [employer] generated this result transmit ramana reference range : 4.30 - 11.10 10*3/?L. The reference range was not used to interpret this result as normal/abnormal . RBC (test code = 789-8) See_Comment L [Au tomated message] The system [employer] generated this result transmit ramana reference range [...] See_Comment L [Au tomated message] The system [employer] generated this result transmit ramana reference range : 166 - 358 10*3/?L. The reference range was not used to interpret this result as normal/abnormal . MPV (test code = 11.5 fL 9.5-12.9 33976-7) RDW-CV (test code = 16.1 % 12.0-15.5 H 788-0) RDW-SD (test code = 50.6 fL 39.0-49.9 H 19171-3) NRBC x10^3 (test code = <0.01 See_Comment [Au tomated message] 6591342160) The system [employer] generated this result transmit ramana reference range : 10*3/?L. The reference range was not used to interpret this result as normal/abnormal . NRBC/100 WBC (test code See_Comment [Au tomated message] = 0619306204) The system [facility] generated this result transmit ramana reference range : 0.0 - 10.0 /100 WBC s. The reference r susan was not used to interpret this result as normal/abnormal . IPF % (test code = 1543208779) Lab Interpretation (test Abnormal code = 04768-7) [facility]+COOX+NA+K+GLU+CA2+2021-10-11 00:18:05 Test Item Value Reference Range Interpretation Comments PH (test code = 2) 7.35-7.45 PCO2 (test code = See_Comment [Automate d message] 8282132498) The system [employer] generated this result transmit ramana reference range : 35 - 45 mmHg. The reference range was not used to interpret this result as normal/abnormal . PO2 (test code = See_Comment H [Automated message] 2958390437) The system [employer] generated this result transmit ramana reference range : 80 - 100 mmHg. The reference range was not used to interpret this result as normal/abnormal . HCO3 (test code = See_Comment L [Automate d message] 6632737770) The system [employer] generated this result transmit ramana reference range : 22 - 26 mEq/L. The reference range was not used to interpret this result as normal/abnormal . BE (test code = See_Comment L [Automated message] 9711237076) The system [employer] generated this result transmit ramana reference range : -3.0 - 3.0 mEq/ L. The reference r susan was not used to interpret this result as normal/abnormal . THB (test code = 5.6 g/dL 12.0-16.0 LL 5686410254) %O2HB (test code = 97.8 % 94.0-99.0 9849034834) %COHB ART (test code = 0.8 % 0.0-1.5 3547897300) %METHB ART (test code = 0.8 % 0.4-1.5 1883341973) VOL%O2 ART (test code = 9.2 % 15.0-23.0 L QUES 3610414299) NA (test code = 132 mmol/L 135-145 L 7325752432) K+ (test code = 4.3 mmol/L 3.5-5.0 2150068062) AC CA IONZ (test code = 6.60 mg/dL 4.50-5.30 HH 1360579679) GLUCOSE (test code = 150 mg/dL 70-110 H 2397308389) Lab Interpretation Abnormal (test code = 38668-1) [facility] 00:18:05 Test Item Value Reference Range Interpretation Comments PH (test code = 2) 7.35-7.45 PCO2 (test code = See_Comment [Automate d message] 0261498473) The system [employer] generated this result transmit ramana reference range : 35 - 45 mmHg. The reference range was not used to interpret this result as normal/abnormal . PO2 (test code = See_Comment H [Automated message] 0033700534) The system [employer] generated this result transmit ramana reference range : 80 - 100 mmHg. The reference range was not used to interpret this result as normal/abnormal . HCO3 (test code = See_Comment L [Automate d message] 4662568924) The system [employer] generated this result transmit ramana reference range : 22 - 26 mEq/L. The reference range was not used to interpret this result as normal/abnormal . BE (test code = See_Comment L [Automated message] 3952848591) The system [employer] generated this result transmit ramana reference range : -3.0 - 3.0 mEq/ L. The reference r susan was not used to interpret this result as normal/abnormal . THB (test code = 5.6 g/dL 12.0-16.0 LL 2544133262) %O2HB (test code = 97.8 % 94.0-99.0 7203211624) %COHB ART (test code = 0.8 % 0.0-1.5 9694544057) %METHB ART (test code = 0.8 % 0.4-1.5 1194221789) VOL%O2 ART (test code = 9.2 % 15.0-23.0 L QUES 1563535726) NA (test code = 132 mmol/L 135-145 L 2489097811) K+ (test code = 4.3 mmol/L 3.5-5.0 9839898769) AC CA IONZ (test code = 6.60 mg/dL 4.50-5.30 8313453563) GLUCOSE (test code = 150 mg/dL 70-110 H 1182630259) Lab Interpretation Abnormal (test code = 32238-3) [facility]11 00:17:20 Test Item Value Reference Range Interpretation Comments PH (test code = 2) 7.35-7.45 PCO2 (test code = See_Comment [Automate d message] 8819299115) The system [employer] generated this result transmit ramana reference range : 35 - 45 mmHg. The reference range was not used to interpret this result as normal/abnormal . PO2 (test code = See_Comment H [Automated message] 6134532021) The system [employer] generated this result transmit ramana reference range : 80 - 100 mmHg. The reference range was not used to interpret this result as normal/abnormal . HCO3 (test code = See_Comment [Automate d message] 2639381558) The system [employer] generated this result transmit ramana reference range : 22 - 26 mEq/L. The reference range was not used to interpret this result as normal/abnormal . BE (test code = See_Comment L [Automated message] 9736381804) The system [employer] generated this result transmit ramana reference range : -3.0 - 3.0 mEq/ L. The reference r susan was not used to interpret this result as normal/abnormal . THB (test code = 6.7 g/dL 12.0-16.0 LL 8493792337) %O2HB (test code = 97.9 % 94.0-99.0 9771077909) %COHB ART (test code = 0.8 % 0.0-1.5 4245614126) %METHB ART (test code = 0.4 % 0.4-1.5 4580447113) VOL%O2 ART (test code = 10.3 % 15.0-23.0 L QUES 4312396474) NA (test code = 132 mmol/L 135-145 L 1193244151) K+ (test code = 4.1 mmol/L 3.5-5.0 3616558830) AC CA IONZ (test code = 4.40 mg/dL 4.50-5.30 L 8592121654) GLUCOSE (test code = 173 mg/dL 70-110 H 9164508163) Lab Interpretation Abnormal (test code = 25217-2) [facility]CA[facility]21-10-11 00:17:20 Test Item Value Reference Range Interpretation Comments PH (test code = 2) 7.35-7.45 PCO2 (test code = See_Comment [Automate d message] 5051201037) The system [employer] generated this result transmit ramana reference range : 35 - 45 mmHg. The reference range was not used to interpret this result as normal/abnormal . PO2 (test code = See_Comment H [Automated message] 0645542499) The system [employer] generated this result transmit ramana reference range : 80 - 100 mmHg. The reference range was not used to interpret this result as normal/abnormal . HCO3 (test code = See_Comment [Automate d message] 9144036942) The system [employer] generated this result transmit ramana reference range : 22 - 26 mEq/L. The reference range was not used to interpret this result as normal/abnormal . BE (test code = See_Comment L [Automated message] 7009010394) The system [employer] generated this result transmit ramana reference range : -3.0 - 3.0 mEq/ L. The reference r susan was not used to interpret this result as normal/abnormal . THB (test code = 6.7 g/dL 12.0-16.0 LL 4219421953) %O2HB (test code = 97.9 % 94.0-99.0 8850047672) %COHB ART (test code = 0.8 % 0.0-1.5 0523641566) %METHB ART (test code = 0.4 % 0.4-1.5 9732395959) VOL%O2 ART (test code = 10.3 % 15.0-23.0 L QUES 2961283565) NA (test code = 132 mmol/L 135-145 L 3751355492) K+ (test code = 4.1 mmol/L 3.5-5.0 1052159938) AC CA IONZ (test code = 4.40 mg/dL 4.50-5.30 L 4874449458) GLUCOSE (test code = 173 mg/dL 70-110 H 6466303019) Lab Interpretation Abnormal (test code = 16253-0) [facility]CA2[facility]21-10-11 00:16:35 Test Item Value Reference Range Interpretation Comments PH (test code = 2) 7.35-7.45 PCO2 (test code = See_Comment L [Automate d message] 5676618979) The system [employer] h generated this result transmit ramana reference range : 35 - 45 mmHg. The reference range was not used to interpret this result as normal/abnormal . PO2 (test code = See_Comment H [Automated message] 5003554843) The system [employer] ([employer] h generated this result transmit ramana reference range : 80 - 100 mmHg. The reference range was not used to interpret this result as normal/abnormal . HCO3 (test code = See_Comment L [Automate d message] 5853153782) The system [employer] ([employer] h generated this result transmit ramana reference range : 22 - 26 mEq/L. The reference range was not used to interpret this result as normal/abnormal . BE (test code = See_Comment L [Automated message] 7757409228) The system [employer] generated this result transmit ramana reference range : -3.0 - 3.0 mEq/ L. The reference r susan was not used to interpret this result as normal/abnormal . THB (test code = 7.3 g/dL 12.0-16.0 LL 1892004555) %O2HB (test code = 98.0 % 94.0-99.0 9521195657) %COHB ART (test code = 0.7 % 0.0-1.5 5942871855) %METHB ART (test code = 0.3 % 0.4-1.5 L 2137472146) VOL%O2 ART (test code = 10.9 % 15.0-23.0 L QUES [id number]) NA (test code = 133 mmol/L 135-145 L [id number]) K+ (test code = 4.2 mmol/L 3.5-5.0 5310037729) AC CA IONZ (test code = 4.30 mg/dL 4.50-5.30 L 2324429888) GLUCOSE (test code = 161 mg/dL 70-110 H [id number]) Lab Interpretation Abnormal (test code = 87770-9) [facility]11 00:16:35 Test Item Value Reference Range Interpretation Comments PH (test code = 2) 7.35-7.45 PCO2 (test code = See_Comment L [Automate d message] [id number]) The system [employer] ([employer])ic h generated this result transmit ramana reference range : 35 - 45 mmHg. The reference range was not used to interpret this result as normal/abnormal . PO2 (test code = See_Comment H [Automated message] 1282304796) The system Vanksen h generated this result transmit ramana reference range : 80 - 100 mmHg. The reference range was not used to interpret this result as normal/abnormal . HCO3 (test code = See_Comment L [Automate d message] [id number]) The system [employer] generated this result transmit ramana reference range : 22 - 26 mEq/L. The reference range was not used to interpret this result as normal/abnormal . BE (test code = See_Comment L [Automated message] [id number]) The system [employer] generated this result transmit ramana reference range : -3.0 - 3.0 mEq/ L. The reference r susan was not used to interpret this result as normal/abnormal . THB (test code = 7.3 g/dL 12.0-16.0 LL 4253254456) %O2HB (test code = 98.0 % 94.0-99.0 3917988079) %COHB ART (test code = 0.7 % 0.0-1.5 1194410707) %METHB ART (test code = 0.3 % 0.4-1.5 L 8639793102) VOL%O2 ART (test code = 10.9 % 15.0-23.0 L QUES 7532678007) NA (test code = 133 mmol/L 135-145 L 8465403467) K+ (test code = 4.2 mmol/L 3.5-5.0 7095430612) AC CA IONZ (test code = 4.30 mg/dL 4.50-5.30 L 7284630225) GLUCOSE (test code = 161 mg/dL 70-110 H 6360488256) Lab Interpretation Abnormal (test code = 24977-9) [facility]11 00:15:34 Test Item Value Reference Range Interpretation Comments PH (test code = 2) 7.35-7.45 PCO2 (test code = See_Comment L [Automate d message] [id number]) The system [employer] ([employer])ic h generated this result transmit ramana reference range : 35 - 45 mmHg. The reference range was not used to interpret this result as normal/abnormal . PO2 (test code = See_Comment H [Automated message] [id number]) The system [employer] generated this result transmit ramana reference range : 80 - 100 mmHg. The reference range was not used to interpret this result as normal/abnormal . HCO3 (test code = See_Comment L [Automate d message] 1513579231) The system [employer] generated this result transmit ramana reference range : 22 - 26 mEq/L. The reference range was not used to interpret this result as normal/abnormal . BE (test code = See_Comment [Automated message] [id number]) The system [employer] generated this result transmit ramana reference range : -3.0 - 3.0 mEq/ L. The reference r susan was not used to interpret this result as normal/abnormal . THB (test code = 7.8 g/dL 12.0-16.0 LL 6215498887) %O2HB (test code = 98.1 % 94.0-99.0 6772365354) %COHB ART (test code = 0.9 % 0.0-1.5 5078518783) %METHB ART (test code = 0.2 % 0.4-1.5 L [id number]) VOL%O2 ART (test code = 12.2 % 15.0-23.0 L QUES 8662783124) NA (test code = 133 mmol/L 135-145 L 0813075926) K+ (test code = 4.3 mmol/L 3.5-5.0 1694429969) AC CA IONZ (test code = 5.30 mg/dL 4.50-5.30 4195675922) GLUCOSE (test code = 111 mg/dL 70-110 H 5276809998) Lab Interpretation Abnormal (test code = 18822-1) [facility]11 00:15:34 Test Item Value Reference Range Interpretation Comments PH (test code = 2) 7.35-7.45 PCO2 (test code = See_Comment L [Automate d message] 3088427068) The system [employer] generated this result transmit ramana reference range : 35 - 45 mmHg. The reference range was not used to interpret this result as normal/abnormal . PO2 (test code = See_Comment H [Automated message] 4659544873) The system [employer] generated this result transmit ramana reference range : 80 - 100 mmHg. The reference range was not used to interpret this result as normal/abnormal . HCO3 (test code = See_Comment L [Automate d message] 5598362855) The system [employer] generated this result transmit ramana reference range : 22 - 26 mEq/L. The reference range was not used to interpret this result as normal/abnormal . BE (test code = See_Comment [Automated message] 1479727548) The system [employer] generated this result transmit ramana reference range : -3.0 - 3.0 mEq/ L. The reference r suasn was not used to interpret this result as normal/abnormal . THB (test code = 7.8 g/dL 12.0-16.0 LL 4251082090) %O2HB (test code = 98.1 % 94.0-99.0 7667497457) %COHB ART (test code = 0.9 % 0.0-1.5 3613620118) %METHB ART (test code = 0.2 % 0.4-1.5 L 5883202382) VOL%O2 ART (test code = 12.2 % 15.0-23.0 L QUES 3654292298) NA (test code = 133 mmol/L 135-145 L 0165163680) K+ (test code = 4.3 mmol/L 3.5-5.0 3882100858) AC CA IONZ (test code = 5.30 mg/dL 4.50-5.30 7111805464) GLUCOSE (test code = 111 mg/dL 70-110 H 2690967918) Lab Interpretation Abnormal (test code = 49417-1) [facility] METABOLIC PANEL (NA, K, CL, CO2, GLUCOSE, BUN, CREATININE, CA)2021-10-10 11:50:35 Test Item Value Reference Range Interpretation Comments NA (test code = 135 mmol/L 135-145 5979707478) K (test code = 3.6 mmol/L 3.5-5.0 4945569550) CL (test code = 105 mmol/L 98-108 3408700447) CO2 TOTAL (test code = 30 mmol/L 23-31 8532295388) AGAP (test code = <1 2-16 L 0641192676) BUN (test code = 3 mg/dL 7-23 L 3247409077) GLUCOSE (test code = 102 mg/dL 70-110 9671420657) CREATININE (test code = 0.50 mg/dL 0.50-1.04 9016619667) CALCIUM (test code = 8.1 mg/dL 8.6-10.6 L 7220783440) eGFR (test code = mL/min/1.73m2 4688219028) MICKY (test code = MICKY) Association of [...] tests). Lab Interpretation Abnormal (test code = 77440-4) [facility] METABOLIC PANEL (NA, K, CL, CO2, GLUCOSE, BUN, CREATININE, CA)2021-10-10 11:50:35 Test Item Value Reference Range Interpretation Comments NA (test code = 135 mmol/L 135-145 6714022896) K (test code = 3.6 mmol/L 3.5-5.0 6188408885) CL (test code = 105 mmol/L 98-108 6112116007) CO2 TOTAL (test code = 30 mmol/L 23-31 7812847123) AGAP (test code = <1 2-16 L 8151683599) BUN (test code = 3 mg/dL 7-23 L 4583172385) GLUCOSE (test code = 102 mg/dL 70-110 1543682897) CREATININE (test code = 0.50 mg/dL 0.50-1.04 0364837005) CALCIUM (test code = 8.1 mg/dL 8.6-10.6 L 9731359394) eGFR (test code = mL/min/1.73m2 7638869392) MICKY (test code = MICKY) Association of [...] tests). Lab Interpretation Abnormal (test code = 53417-1) [facility] Test Item Value Reference Range Interpretation Comments MAGNESIUM (test code = 9053977721) 2.0 mg/dL 1.7-2.4 Lab Interpretation (test code = Normal 91071-6) [facility] 11:49:04 Test Item Value Reference Range Interpretation Comments PHOSPHORUS (test code = 4826613499) 3.4 mg/dL 2.5-5.0 Lab Interpretation (test code = Normal 10119-8) [facility] Test Item Value Reference Range Interpretation Comments MAGNESIUM (test code = 4169945466) 2.0 mg/dL 1.7-2.4 Lab Interpretation (test code = Normal 75490-4) [facility] 11:49:04 Test Item Value Reference Range Interpretation Comments PHOSPHORUS (test code = 7757603587) 3.4 mg/dL 2.5-5.0 Lab Interpretation (test code = Normal 60643-9) [facility] [id number] 11:26:59 Test Item Value Reference Range Interpretation Comments WBC (test code = 6690-2) See_Comment [A utomated message] The system [employer] generated this result transmit ramana reference range : 4.30 - 11.10 10*3/?L. The reference range was not used to interpret this result as normal/abnormal . RBC (test code = 789-8) See_Comment L [Au tomated message] The system [employer] generated this result transmit ramana reference range [...] See_Comment L [Au tomated message] The system [employer] generated this result transmit ramana reference range : 166 - 358 10*3/?L. The reference range was not used to interpret this result as normal/abnormal . MPV (test code = 10.9 fL 9.5-12.9 42764-6) RDW-CV (test code = 16.4 % 12.0-15.5 H 788-0) RDW-SD (test code = 50.1 fL 39.0-49.9 H 95976-5) NRBC x10^3 (test code = <0.01 See_Comment [Au tomated message] 0222391437) The system [employer] generated this result transmit ramana reference range : 10*3/?L. The reference range was not used to interpret this result as normal/abnormal . NRBC/100 WBC (test code See_Comment [Au tomated message] = 6620519052) The system [facility] generated this result transmit ramana reference range : 0.0 - 10.0 /100 WBC s. The reference r susan was not used to interpret this result as normal/abnormal . IPF % (test code = 4765958022) Lab Interpretation (test Abnormal code = 49513-2) [facility] WITHOUT [id number] 11:26:59 Test Item Value Reference Range Interpretation Comments WBC (test code = 6690-2) See_Comment [A utomated message] The system [facility] generated this result transmit ramana reference range : 4.30 - 11.10 10*3/?L. The reference range was not used to interpret this result as normal/abnormal . RBC (test code = 789-8) See_Comment L [Au tomated message] The system [facility] generated this result transmit ramana reference [...] See_Comment L [Au tomated message] The system [facility] generated this result transmit ramana reference range : 166 - 358 10*3/?L. The reference range was not used to interpret this result as normal/abnormal . MPV (test code = 10.9 fL 9.5-12.9 96909-8) RDW-CV (test code = 16.4 % 12.0-15.5 H 788-0) RDW-SD (test code = 50.1 fL 39.0-49.9 H 87251-8) NRBC x10^3 (test code = <0.01 See_Comment [Au tomated message] 9380398349) The system [employer] generated this result transmit ramana reference range : 10*3/?L. The reference range was not used to interpret this result as normal/abnormal . NRBC/100 WBC (test code See_Comment [Au tomated message] = 2748307815) The system [facility] generated this result transmit ramana reference range : 0.0 - 10.0 /100 WBC s. The reference r susan was not used to interpret this result as normal/abnormal . IPF % (test code = 1536536202) Lab Interpretation (test Abnormal code = 34540-4) [facility] WITHOUT [id number] 00:02:03 Test Item Value Reference Range Interpretation Comments WBC (test code = 6690-2) See_Comment [A utomated message] The system [facility] [employer] generated this result transmit ramana reference range : 4.30 - 11.10 10*3/?L. The reference range was not used to interpret this result as normal/abnormal . RBC (test code = 789-8) See_Comment L [Au tomated message] The system [facility] [employer] generated this result transmit ramana reference range [...] See_Comment L [Au tomated message] The system [facility] generated this result transmit ramana reference range : 166 - 358 10*3/?L. The reference range was not used to interpret this result as normal/abnormal . MPV (test code = 11.0 fL 9.5-12.9 01697-3) RDW-CV (test code = 15.9 % 12.0-15.5 H 788-0) RDW-SD (test code = 49.4 fL 39.0-49.9 93764-5) NRBC x10^3 (test code = See_Comment [Au tomated message] 6140256119) The system [facility] generated this result transmit ramana reference range : 10*3/?L. The reference range was not used to interpret this result as normal/abnormal . NRBC/100 WBC (test code See_Comment [Au tomated message] = 5761705817) The system [facility] generated this result transmit ramana reference range : 0.0 - 10.0 /100 WBC s. The reference r susan was not used to interpret this result as normal/abnormal . IPF % (test code = 0146333526) Lab Interpretation (test Abnormal code = 63047-8) [facility] WITHOUT [id number] 00:02:03 Test Item Value Reference Range Interpretation Comments WBC (test code = 6690-2) See_Comment [A utomated message] The system [facility] generated this result transmit ramana reference range : 4.30 - 11.10 10*3/?L. The reference range was not used to interpret this result as normal/abnormal . RBC (test code = 789-8) See_Comment L [Au tomated message] The system [employer] generated this result transmit ramana reference range [...] See_Comment L [Au tomated message] The system [employer] generated this result transmit ramana reference range : 166 - 358 10*3/?L. The reference range was not used to interpret this result as normal/abnormal . MPV (test code = 11.0 fL 9.5-12.9 99775-3) RDW-CV (test code = 15.9 % 12.0-15.5 H 788-0) RDW-SD (test code = 49.4 fL 39.0-49.9 25202-9) NRBC x10^3 (test code = See_Comment [Au tomated message] 1728616160) The system [employer] generated this result transmit ramana reference range : 10*3/?L. The reference range was not used to interpret this result as normal/abnormal . NRBC/100 WBC (test code See_Comment [Au tomated message] = 4139382143) The system [facility] generated this result transmit ramana reference range : 0.0 - 10.0 /100 WBC s. The reference r susan was not used to interpret this result as normal/abnormal . IPF % (test code = 0076465920) Lab Interpretation (test Abnormal code = 47571-5) [facility] WITHOUT [id number] 16:52:03 Test Item Value Reference Range Interpretation Comments WBC (test code = 6690-2) See_Comment [A utomated message] The system [facility] generated this result transmit ramana reference range : 4.30 - 11.10 10*3/?L. The reference range was not used to interpret this result as normal/abnormal . RBC (test code = 789-8) See_Comment L [Au tomated message] The system [facility] generated this result transmit ramana reference [...] See_Comment L [Au tomated message] The system [facility] generated this result transmit ramana reference range : 166 - 358 10*3/?L. The reference range was not used to interpret this result as normal/abnormal . MPV (test code = 10.4 fL 9.5-12.9 50344-0) RDW-CV (test code = 15.8 % 12.0-15.5 H 788-0) RDW-SD (test code = 47.8 fL 39.0-49.9 80489-1) NRBC x10^3 (test code = See_Comment [Au tomated message] 2644233166) The system [facility] generated this result transmit ramana reference range : 10*3/?L. The reference range was not used to interpret this result as normal/abnormal . NRBC/100 WBC (test code See_Comment [Au tomated message] = 7670927835) The system [facility] generated this result transmit ramana reference range : 0.0 - 10.0 /100 WBC s. The reference r susan was not used to interpret this result as normal/abnormal . IPF % (test code = 6703969905) Lab Interpretation (test Abnormal code = 34961-3) [facility] WITHOUT [id number] 16:52:03 Test Item Value Reference Range Interpretation Comments WBC (test code = 6690-2) See_Comment [A utomated message] The system [employer] generated this result transmit ramana reference range : 4.30 - 11.10 10*3/?L. The reference range was not used to interpret this result as normal/abnormal . RBC (test code = 789-8) See_Comment L [Au tomated message] The system [employer] generated this result transmit ramana reference range [...] See_Comment L [Au tomated message] The system [employer] generated this result transmit ramana reference range : 166 - 358 10*3/?L. The reference range was not used to interpret this result as normal/abnormal . MPV (test code = 10.4 fL 9.5-12.9 96436-2) RDW-CV (test code = 15.8 % 12.0-15.5 H 788-0) RDW-SD (test code = 47.8 fL 39.0-49.9 36518-3) NRBC x10^3 (test code = See_Comment [Au tomated message] 5895195910) The system [employer] generated this result transmit ramana reference range : 10*3/?L. The reference range was not used to interpret this result as normal/abnormal . NRBC/100 WBC (test code See_Comment [Au tomated message] = 4632513638) The system [facility] generated this result transmit ramana reference range : 0.0 - 10.0 /100 WBC s. The reference r susan was not used to interpret this result as normal/abnormal . IPF % (test code = 6857691496) Lab Interpretation (test Abnormal code = 66661-3) [facility] Test Item Value Reference Range Interpretation Comments MAGNESIUM (test code = 1566905589) 1.6 mg/dL 1.7-2.4 L Lab Interpretation (test code = Abnormal 30374-5) [facility] 13:44:06 Test Item Value Reference Range Interpretation Comments PHOSPHORUS (test code = 8515028125) 3.0 mg/dL 2.5-5.0 Lab Interpretation (test code = Normal 06361-9) [facility]:06 Test Item Value Reference Range Interpretation Comments MAGNESIUM (test code = 7294151304) 1.6 mg/dL 1.7-2.4 L Lab Interpretation (test code = Abnormal 64066-5) [facility] 13:44:06 Test Item Value Reference Range Interpretation Comments PHOSPHORUS (test code = 4060032080) 3.0 mg/dL 2.5-5.0 Lab Interpretation (test code = Normal 71512-6) [facility] Packed RBC (in units), 1 Units 2021-10-09 10:06:26 Test Item Value Reference Range Interpretation Comments Cross Match Result Compatible (test code = 4409) ISBT Blood Type Code (test code = 715193) Unit Blood Type (test A Pos code = 4410) Unit Number (test [id number] code = 4411) Blood Expiration Date & Time (test code = 366462) Status Information Issued (test code = 4412) Product Red Blood Cells Identification (test code = 4413) Product Code (test [id number] Performed at [facility] code = 4414) Laboratory Services - [facility] Blood [address] [place] [address]Biso Free: [phone] A No. [id number] [facility] Packed RBC (in units), 1 Units 2021-10-09 10:06:26 Test Item Value Reference Range Interpretation Comments Cross Match Result Compatible (test code = 4409) ISBT Blood Type Code (test code = 577669) Unit Blood Type (test A Pos code = 4410) Unit Number (test [id number] code = 4411) Blood Expiration Date & Time (test code = 050566) Status Information Issued (test code = 4412) Product Red Blood Cells Identification (test code = 4413) Product Code (test [id number] Performed at [facility] code = 4414) Laboratory Services - [facility] Blood [address] [address]Klyh Free: [phone] A No. [id number] [facility] (NA, K, CL, CO2, GLUCOSE, BUN, CREATININE, CA)2021-10-09 10:00:59 Test Item Value Reference Range Interpretation Comments NA (test code = 134 mmol/L 135-145 L 2518521441) K (test code = 3.9 mmol/L 3.5-5.0 9724741899) CL (test code = 106 mmol/L 98-108 7585782022) CO2 TOTAL (test code = 29 mmol/L 23-31 7019171503) AGAP (test code = <1 2-16 L 5835147324) BUN (test code = 7 mg/dL 7-23 3791675196) GLUCOSE (test code = 119 mg/dL 70-110 H 0450171865) CREATININE (test code = 0.49 mg/dL 0.50-1.04 L 2889997787) CALCIUM (test code = 7.5 mg/dL 8.6-10.6 L 9051808555) eGFR (test code = mL/min/1.73m2 3856586286) MICKY (test code = MICKY) Association of [...] tests). Lab Interpretation Abnormal (test code = 26034-5) [facility] METABOLIC PANEL (NA, K, CL, CO2, GLUCOSE, BUN, CREATININE, CA)2021-10-09 10:00:59 Test Item Value Reference Range Interpretation Comments NA (test code = 134 mmol/L 135-145 L 8417153564) K (test code = 3.9 mmol/L 3.5-5.0 5855385064) CL (test code = 106 mmol/L 98-108 0895772316) CO2 TOTAL (test code = 29 mmol/L 23-31 7751180557) AGAP (test code = <1 2-16 L 9854592065) BUN (test code = 7 mg/dL 7-23 2137320238) GLUCOSE (test code = 119 mg/dL 70-110 H 2044767085) CREATININE (test code = 0.49 mg/dL 0.50-1.04 L 0090133802) CALCIUM (test code = 7.5 mg/dL 8.6-10.6 L 1052676066) eGFR (test code = mL/min/1.73m2 8088302288) MICKY (test code = MICKY) Association of [...] tests). Lab Interpretation Abnormal (test code = 90992-1) [facility] WITHOUT [id number] 09:00:48 Test Item Value Reference Range Interpretation Comments WBC (test code = See_Comment [Automated message] 6690-2) The system [employer] generated this result transmitted ref erence range: 4.30 - 1 1.10 10*3/?L. The reference range was not used to int erpret this result as normal/abnormal . RBC (test code = 789-8) See_Comment L [Au tomated message] The system [employer] generated this result transmitted ref erence range: [...] See_Comment L [Au tomated message] The system [employer] generated this result transmitted ref erence range: 166 - 35 8 10*3/?L. The reference range was not used to int erpret this result as normal/abnormal . MPV (test code = 10.9 fL 9.5-12.9 62338-3) RDW-CV (test code = 16.3 % 12.0-15.5 H 788-0) RDW-SD (test code = 48.7 fL 39.0-49.9 36245-8) NRBC x10^3 (test code = <0.01 See_Comment [Au tomated message] 4754279726) The system [employer] generated this result transmitted ref erence range: 10*3/?L. The reference range was not used to int erpret this result as normal/abnormal . NRBC/100 WBC (test code See_Comment [Au tomated message] = 9417585366) The system [employer] generated this result transmitted ref erence range: 0.0 - 10 .0 /100 WBCs. The reference range was not used to int erpret this result as normal/abnormal . IPF % (test code = 3.6 % 1.3-7.7 Platelet count 4585845745) measured by fluorescence me thod. Lab Interpretation Abnormal (test code = 77415-9) [facility] WITHOUT [id number] 09:00:48 Test Item Value Reference Range Interpretation Comments WBC (test code = See_Comment [Automated message] 6690-2) The system [employer] generated this result transmitted ref erence range: 4.30 - 1 1.10 10*3/?L. The reference range was not used to int erpret this result as normal/abnormal . RBC (test code = 789-8) See_Comment L [Au tomated message] The system [employer] generated this result transmitted ref erence range: [...] See_Comment L [Au tomated message] The system [employer] generated this result transmitted ref erence range: 166 - 35 8 10*3/?L. The reference range was not used to int erpret this result as normal/abnormal . MPV (test code = 10.9 fL 9.5-12.9 09261-3) RDW-CV (test code = 16.3 % 12.0-15.5 H 788-0) RDW-SD (test code = 48.7 fL 39.0-49.9 89784-8) NRBC x10^3 (test code = <0.01 See_Comment [Au tomated message] 2137072677) The system [employer] generated this result transmitted ref erence range: 10*3/?L. The reference range was not used to int erpret this result as normal/abnormal . NRBC/100 WBC (test code See_Comment [Au tomated message] = 6404202817) The system [employer] generated this result transmitted ref erence range: 0.0 - 10 .0 /100 WBCs. The reference range was not used to int erpret this result as normal/abnormal . IPF % (test code = 3.6 % 1.3-7.7 Platelet count 2422086116) measured by fluorescence me thod. Lab Interpretation Abnormal (test code = 31809-5) [facility] WITHOUT [id number] 01:42:07 Test Item Value Reference Range Interpretation Comments WBC (test code = See_Comment [Automated message] 6690-2) The system [employer] generated this result transmitted ref erence range: 4.30 - 1 1.10 10*3/?L. The reference range was not used to int erpret this result as normal/abnormal . RBC (test code = 789-8) See_Comment L [Au tomated message] The system [employer] generated this result transmitted ref erence range: [...] See_Comment L [Au tomated message] The system [employer] generated this result transmitted ref erence range: 166 - 35 8 10*3/?L. The reference range was not used to int erpret this result as normal/abnormal . MPV (test code = 10.6 fL 9.5-12.9 99648-8) RDW-CV (test code = 16.2 % 12.0-15.5 H 788-0) RDW-SD (test code = 48.3 fL 39.0-49.9 14988-4) NRBC x10^3 (test code = See_Comment [Au tomated message] 9235640490) The system [employer] generated this result transmitted ref erence range: 10*3/?L. The reference range was not used to int erpret this result as normal/abnormal . NRBC/100 WBC (test code See_Comment [Au tomated message] = 0412853783) The system [facility] generated this result transmitted ref erence range: 0.0 - 10 .0 /100 WBCs. The reference range was not used to int erpret this result as normal/abnormal . IPF % (test code = 3.3 % 1.3-7.7 Platelet count 1263194893) measured by fluorescence me thod. Lab Interpretation Abnormal (test code = 38322-8) [facility] WITHOUT [id number] 01:42:07 Test Item Value Reference Range Interpretation Comments WBC (test code = See_Comment [Automated message] 6690-2) The system [employer] generated this result transmitted ref erence range: 4.30 - 1 1.10 10*3/?L. The reference range was not used to int erpret this result as normal/abnormal . RBC (test code = 789-8) See_Comment L [Au tomated message] The system [employer] generated this result transmitted ref erence range: [...] See_Comment L [Au tomated message] The system [employer] generated this result transmitted ref erence range: 166 - 35 8 10*3/?L. The reference range was not used to int erpret this result as normal/abnormal . MPV (test code = 10.6 fL 9.5-12.9 28245-4) RDW-CV (test code = 16.2 % 12.0-15.5 H 788-0) RDW-SD (test code = 48.3 fL 39.0-49.9 33227-6) NRBC x10^3 (test code = See_Comment [Au tomated message] 8587884635) The system [employer] generated this result transmitted ref erence range: 10*3/?L. The reference range was not used to int erpret this result as normal/abnormal . NRBC/100 WBC (test code See_Comment [Au tomated message] = 4356803006) The system [facility] generated this result transmitted ref erence range: 0.0 - 10 .0 /100 WBCs. The reference range was not used to int erpret this result as normal/abnormal . IPF % (test code = 3.3 % 1.3-7.7 Platelet count 3267598653) measured by fluorescence me thod. Lab Interpretation Abnormal (test code = 67638-0) [facility] METABOLIC PANEL (NA, K, CL, CO2, GLUCOSE, BUN, CREATININE, CA)2021-10-09 01:19:05 Test Item Value Reference Range Interpretation Comments NA (test code = 135 mmol/L 135-145 0698239522) K (test code = 4.0 mmol/L 3.5-5.0 1250136331) CL (test code = 106 mmol/L 98-108 3139676366) CO2 TOTAL (test code = 27 mmol/L 23-31 8981876404) AGAP (test code = 2-16 5603403710) BUN (test code = 8 mg/dL 7-23 3604777462) GLUCOSE (test code = 98 mg/dL 70-110 9094510110) CREATININE (test code = 0.49 mg/dL 0.50-1.04 L 0869481968) CALCIUM (test code = 7.6 mg/dL 8.6-10.6 L 8762357026) eGFR (test code = mL/min/1.73m2 9533850976) MICKY (test code = MICKY) Association of [...] tests). Lab Interpretation Abnormal (test code = 35834-3) [facility] METABOLIC PANEL (NA, K, CL, CO2, GLUCOSE, BUN, CREATININE, CA)2021-10-09 01:19:05 Test Item Value Reference Range Interpretation Comments NA (test code = 135 mmol/L 135-145 1850098272) K (test code = 4.0 mmol/L 3.5-5.0 5975825057) CL (test code = 106 mmol/L 98-108 2504756522) CO2 TOTAL (test code = 27 mmol/L 23-31 0310850415) AGAP (test code = 2-16 6425999244) BUN (test code = 8 mg/dL 7-23 9098621643) GLUCOSE (test code = 98 mg/dL 70-110 [id number]) CREATININE (test code = 0.49 mg/dL 0.50-1.04 L 3227665958) CALCIUM (test code = 7.6 mg/dL 8.6-10.6 L 0302274807) eGFR (test code = mL/min/1.73m2 2766287944) MICKY (test code = MICKY) Association of [...] tests). Lab Interpretation Abnormal (test code = 94680-2) [facility] METABOLIC PANEL (NA, K, CL, CO2, GLUCOSE, BUN, CREATININE, CA)2021-10-08 16:28:34 Test Item Value Reference Range Interpretation Comments NA (test code = 134 mmol/L 135-145 L 3342290028) K (test code = 4.1 mmol/L 3.5-5.0 6383005123) CL (test code = 106 mmol/L 98-108 2782243906) CO2 TOTAL (test code = 26 mmol/L 23-31 2868455571) AGAP (test code = 2-16 3112200818) BUN (test code = 6 mg/dL 7-23 L 6371133588) GLUCOSE (test code = 124 mg/dL 70-110 H 5624083369) CREATININE (test code = 0.48 mg/dL 0.50-1.04 L 8417146350) CALCIUM (test code = 8.0 mg/dL 8.6-10.6 L 1133873071) eGFR (test code = mL/min/1.73m2 8244108555) MICKY (test code = MICKY) Association of [...] tests). Lab Interpretation Abnormal (test code = 04512-0) [facility] METABOLIC PANEL (NA, K, CL, CO2, GLUCOSE, BUN, CREATININE, CA)2021-10-08 16:28:34 Test Item Value Reference Range Interpretation Comments NA (test code = 134 mmol/L 135-145 L 0928083803) K (test code = 4.1 mmol/L 3.5-5.0 2302172108) CL (test code = 106 mmol/L 98-108 8036327485) CO2 TOTAL (test code = 26 mmol/L 23-31 5261439872) AGAP (test code = 2-16 7643030153) BUN (test code = 6 mg/dL 7-23 L 0795993985) GLUCOSE (test code = 124 mg/dL 70-110 H 6668618434) CREATININE (test code = 0.48 mg/dL 0.50-1.04 L 3414272813) CALCIUM (test code = 8.0 mg/dL 8.6-10.6 L 7797453841) eGFR (test code = mL/min/1.73m2 1533419820) MICKY (test code = MICKY) Association of [...] tests). Lab Interpretation Abnormal (test code = 24298-2) [facility] METABOLIC PANEL (NA, K, CL, CO2, GLUCOSE, BUN, CREATININE, CA)2021-10-08 16:28:34 Test Item Value Reference Range Interpretation Comments NA (test code = 134 mmol/L 135-145 L 4372475038) K (test code = 4.1 mmol/L 3.5-5.0 6203864524) CL (test code = 106 mmol/L 98-108 2612192007) CO2 TOTAL (test code = 26 mmol/L 23-31 3386589332) AGAP (test code = 2-16 0664544399) BUN (test code = 6 mg/dL 7-23 L 6804039754) GLUCOSE (test code = 124 mg/dL 70-110 H 8996407780) CREATININE (test code = 0.48 mg/dL 0.50-1.04 L 3291937403) CALCIUM (test code = 8.0 mg/dL 8.6-10.6 L 8194859182) eGFR (test code = mL/min/1.73m2 5102231742) MICKY (test code = MICKY) Association of [...] tests). Lab Interpretation Abnormal (test code = 81576-7) [facility] WITHOUT [id number] 16:00:11 Test Item Value Reference Range Interpretation Comments WBC (test code = See_Comment [Automated message] 6690-2) The system [employer] generated this result transmitted ref erence range: 4.30 - 1 1.10 10*3/?L. The reference range was not used to int erpret this result as normal/abnormal . RBC (test code = 789-8) See_Comment L [Au tomated message] The system [employer] generated this result transmitted ref erence range: [...] See_Comment L [Au tomated message] The system [employer] generated this result transmitted ref erence range: 166 - 35 8 10*3/?L. The reference range was not used to int erpret this result as normal/abnormal . MPV (test code = 10.6 fL 9.5-12.9 61362-6) RDW-CV (test code = 15.9 % 12.0-15.5 H 788-0) RDW-SD (test code = 47.8 fL 39.0-49.9 13243-8) NRBC x10^3 (test code = See_Comment [Au tomated message] 5638780351) The system [employer] generated this result transmitted ref erence range: 10*3/?L. The reference range was not used to int erpret this result as normal/abnormal . NRBC/100 WBC (test code See_Comment [Au tomated message] = 4820530769) The system [employer] generated this result transmitted ref erence range: 0.0 - 10 .0 /100 WBCs. The reference range was not used to int erpret this result as normal/abnormal . IPF % (test code = 6.3 % 1.3-7.7 Platelet count 2176648153) measured by fluorescence me thod. Lab Interpretation Abnormal (test code = 50939-0) [facility] WITHOUT [id number] 16:00:11 Test Item Value Reference Range Interpretation Comments WBC (test code = See_Comment [Automated message] 6690-2) The system [employer] generated this result transmitted ref erence range: 4.30 - 1 1.10 10*3/?L. The reference range was not used to int erpret this result as normal/abnormal . RBC (test code = 789-8) See_Comment L [Au tomated message] The system [employer] generated this result transmitted ref erence range: [...] See_Comment L [Au tomated message] The system [facility] generated this result transmitted ref erence range: 166 - 35 8 10*3/?L. The reference range was not used to int erpret this result as normal/abnormal . MPV (test code = 10.6 fL 9.5-12.9 67679-8) RDW-CV (test code = 15.9 % 12.0-15.5 H 788-0) RDW-SD (test code = 47.8 fL 39.0-49.9 67690-3) NRBC x10^3 (test code = See_Comment [Au tomated message] 3322588671) The system [facility] generated this result transmitted ref erence range: 10*3/?L. The reference range was not used to int erpret this result as normal/abnormal . NRBC/100 WBC (test code See_Comment [Au tomated message] = 4885595228) The system [facility] generated this result transmitted ref erence range: 0.0 - 10 .0 /100 WBCs. The reference range was not used to int erpret this result as normal/abnormal . IPF % (test code = 6.3 % 1.3-7.7 Platelet count 9922319684) measured by fluorescence me thod. Lab Interpretation Abnormal (test code = 15074-3) [facility] WITHOUT [id number] 16:00:11 Test Item Value Reference Range Interpretation Comments WBC (test code = See_Comment [Automated message] 6690-2) The system [employer] generated this result transmitted ref erence range: 4.30 - 1 1.10 10*3/?L. The reference range was not used to int erpret this result as normal/abnormal . RBC (test code = 789-8) See_Comment L [Au tomated message] The system [employer] generated this result transmitted ref erence range: [...] See_Comment L [Au tomated message] The system [employer] generated this result transmitted ref erence range: 166 - 35 8 10*3/?L. The reference range was not used to int erpret this result as normal/abnormal . MPV (test code = 10.6 fL 9.5-12.9 67113-2) RDW-CV (test code = 15.9 % 12.0-15.5 H 788-0) RDW-SD (test code = 47.8 fL 39.0-49.9 36227-6) NRBC x10^3 (test code = See_Comment [Au tomated message] 0261840560) The system [employer] generated this result transmitted ref erence range: 10*3/?L. The reference range was not used to int erpret this result as normal/abnormal . NRBC/100 WBC (test code See_Comment [Au tomated message] = 7784596756) The system [employer] generated this result transmitted ref erence range: 0.0 - 10 .0 /100 WBCs. The reference range was not used to int erpret this result as normal/abnormal . IPF % (test code = 6.3 % 1.3-7.7 Platelet count 2149461345) measured by fluorescence me thod. Lab Interpretation Abnormal (test code = 54690-3) [facility]08 15:36:16 Test Item Value Reference Range Interpretation Comments HGB A1C (test code = 5.3 % 4.0-5.7 4548-4) MICKY (test code = MICKY) Reference RangesNormal: <5.7%Prediabetes: 5.7 - 6.4%Diabetes: > 6.5% Lab Interpretation (test Normal code = 42004-2) [facility]C)2021-10-08 15:36:16 Test Item Value Reference Range Interpretation Comments HGB A1C (test code = 5.3 % 4.0-5.7 4548-4) MICKY (test code = MICKY) Reference RangesNormal: <5.7%Prediabetes: 5.7 - 6.4%Diabetes: > 6.5% Lab Interpretation (test Normal code = 60133-9) [facility]A1C)2021-10-08 15:36:16 Test Item Value Reference Range Interpretation Comments HGB A1C (test code = 5.3 % 4.0-5.7 4548-4) MICKY (test code = MICKY) Reference RangesNormal: <5.7%Prediabetes: 5.7 - 6.4%Diabetes: > 6.5% Lab Interpretation (test Normal code = 34480-4) [facility] (NA, K, CL, CO2, GLUCOSE, BUN, CREATININE, CA)2021-10-08 13:25:28 Test Item Value Reference Range Interpretation Comments NA (test code = 135 mmol/L 135-145 2278374609) K (test code = 4.0 mmol/L 3.5-5.0 4166207071) CL (test code = 110 mmol/L 98-108 H 0035769784) CO2 TOTAL (test code = 23 mmol/L 23-31 6898607256) AGAP (test code = 2-16 2249820272) BUN (test code = 8 mg/dL 7-23 3539434508) GLUCOSE (test code = 98 mg/dL 70-110 1612912189) CREATININE (test code = 0.48 mg/dL 0.50-1.04 L 2747958729) CALCIUM (test code = 9.7 mg/dL 8.6-10.6 8646996235) eGFR (test code = mL/min/1.73m2 7778453802) MICKY (test code = MICKY) Association of [...] tests). Lab Interpretation Abnormal (test code = 39620-2) [facility] METABOLIC PANEL (NA, K, CL, CO2, GLUCOSE, BUN, CREATININE, CA)2021-10-08 13:25:28 Test Item Value Reference Range Interpretation Comments NA (test code = 135 mmol/L 135-145 9611135088) K (test code = 4.0 mmol/L 3.5-5.0 2175321607) CL (test code = 110 mmol/L 98-108 H 7465828723) CO2 TOTAL (test code = 23 mmol/L 23-31 0704149618) AGAP (test code = 2-16 0909601908) BUN (test code = 8 mg/dL 7-23 7640199746) GLUCOSE (test code = 98 mg/dL 70-110 5746290926) CREATININE (test code = 0.48 mg/dL 0.50-1.04 L 5812644129) CALCIUM (test code = 9.7 mg/dL 8.6-10.6 9119687786) eGFR (test code = mL/min/1.73m2 7688995548) MICKY (test code = MICYK) Association of Glomerular Filtration Rate (GFR) and [...] tests). Lab Interpretation Abnormal (test code = 31396-4) [facility] METABOLIC PANEL (NA, K, CL, CO2, GLUCOSE, BUN, CREATININE, CA)2021-10-08 13:25:28 Test Item Value Reference Range Interpretation Comments NA (test code = 135 mmol/L 135-145 2293602713) K (test code = 4.0 mmol/L 3.5-5.0 8915418472) CL (test code = 110 mmol/L 98-108 H 6284316814) CO2 TOTAL (test code = 23 mmol/L 23-31 7885545200) AGAP (test code = 2-16 3048856113) BUN (test code = 8 mg/dL 7-23 5197497466) GLUCOSE (test code = 98 mg/dL 70-110 9496802728) CREATININE (test code = 0.48 mg/dL 0.50-1.04 L 3169036463) CALCIUM (test code = 9.7 mg/dL 8.6-10.6 2012793333) eGFR (test code = mL/min/1.73m2 1893054733) MICKY (test code = MICKY) Association of [...] tests). Lab Interpretation Abnormal (test code = 14474-8) [facility] 13:19:15 Test Item Value Reference Range Interpretation Comments MAGNESIUM (test code = 4685393364) 1.4 mg/dL 1.7-2.4 L Lab Interpretation (test code = Abnormal 16039-8) [facility]20[facility] 13:19:15 Test Item Value Reference Range Interpretation Comments PHOSPHORUS (test code = 4780239660) 4.3 mg/dL 2.5-5.0 Lab Interpretation (test code = Normal 96369-2) [facility] PAN[facility] (25720) (ALB,T.PRO,BILI T,BU/BC,ALT,AST,ALK PHOS)2021-10-08 13:19:15 Test Item Value Reference Range Interpretation Comments TOTAL BILI (test code = 4588756264) 1.5 mg/dL 0.1-1.1 H BILI UNCON (test code = 1070593046) 1.3 mg/dL 0.1-1.1 H BILI CONJ (test code = 7701423103) 0.0 mg/dL 0.0-0.3 T PROTEIN (test code = 6953349290) 4.9 g/dL 6.3-8.2 L ALBUMIN (test code = 2953139926) 2.7 g/dL 3.5-5.0 L ALK PHOS (test code = 6703293963) 46 U/L 34-122 ALTv (test code = 1742-6) 13 U/L 5-35 AST(SGOT) (test code = 7105585004) 24 U/L 13-40 Lab Interpretation (test code = Abnormal 14244-8) [facility] 13:19:15 Test Item Value Reference Range Interpretation Comments MAGNESIUM (test code = 8289176499) 1.4 mg/dL 1.7-2.4 L Lab Interpretation (test code = Abnormal 67390-7) [facility] 13:19:15 Test Item Value Reference Range Interpretation Comments PHOSPHORUS (test code = 2191105299) 4.3 mg/dL 2.5-5.0 Lab Interpretation (test code = Normal 41108-4) [facility] (39654) (ALB,T.PRO,BILI T,BU/BC,ALT,AST,ALK PHOS)2021-10-08 13:19:15 Test Item Value Reference Range Interpretation Comments TOTAL BILI (test code = 4764677140) 1.5 mg/dL 0.1-1.1 H BILI UNCON (test code = 5495019532) 1.3 mg/dL 0.1-1.1 H BILI CONJ (test code = 5871981731) 0.0 mg/dL 0.0-0.3 T PROTEIN (test code = 5808103064) 4.9 g/dL 6.3-8.2 L ALBUMIN (test code = 6539779954) 2.7 g/dL 3.5-5.0 L ALK PHOS (test code = 9576323444) 46 U/L 34-122 ALTv (test code = 1742-6) 13 U/L 5-35 AST(SGOT) (test code = 0943843168) 24 U/L 13-40 Lab Interpretation (test code = Abnormal 79034-0) [facility] 13:19:15 Test Item Value Reference Range Interpretation Comments MAGNESIUM (test code = 2355092436) 1.4 mg/dL 1.7-2.4 L Lab Interpretation (test code = Abnormal 93020-8) [facility] 13:19:15 Test Item Value Reference Range Interpretation Comments PHOSPHORUS (test code = 9333901872) 4.3 mg/dL 2.5-5.0 Lab Interpretation (test code = Normal 82389-4) [facility] (28726) (ALB,T.PRO,BILI T,BU/BC,ALT,AST,ALK PHOS)2021-10-08 13:19:15 Test Item Value Reference Range Interpretation Comments TOTAL BILI (test code = 0196809904) 1.5 mg/dL 0.1-1.1 H BILI UNCON (test code = 4177423385) 1.3 mg/dL 0.1-1.1 H BILI CONJ (test code = 1765693435) 0.0 mg/dL 0.0-0.3 T PROTEIN (test code = 4197145531) 4.9 g/dL 6.3-8.2 L ALBUMIN (test code = 5150914172) 2.7 g/dL 3.5-5.0 L ALK PHOS (test code = 0482974257) 46 U/L 34-122 ALTv (test code = 1742-6) 13 U/L 5-35 AST(SGOT) (test code = 4638895302) 24 U/L 13-40 Lab Interpretation (test code = Abnormal 59337-1) [facility] WITH [id number] 11:26:11 Test Item Value Reference Range Interpretation Comments WBC (test code = See_Comment [Automated 2590-2) message] The sy stem which generated this result transmitted reference range : 4.30 - 11.10 10*3/?L. The reference range was not used to interpret this result as normal/abnormal . RBC (test code = See_Comment L [Automated 849-8) message] The sy stem which generated this [...] RDW-SD (test code = 46.1 fL 39.0-49.9 39578-3) RDW-CV (test code = 15.2 % 12.0-15.5 788-0) PLT (test code = See_Comment L [Automated 777-3) message] The sy stem which generated this result transmitted reference range : 166 - 358 10*3/ ?L. The reference r susan was not used to interpret this result as normal/abnormal . MPV (test code = 11.0 fL 9.5-12.9 02013-7) IPF % (test code = 4.9 % 1.3-7.7 Platelet count 6180741002) measured by fluorescence method. NRBC/100 WBC (test See_Comment [Automat ed code = 7806507566) message] The system which generated this result transmitted reference range : 0.0 - 10.0 /100 WBCs. The refer ence range was not u sed to interpret th is result as normal/abnormal . NRBC x10^3 (test code <0.01 See_Comment [Auto mated = 5488358299) message] The s ystem which generated this result transmitted reference range : 10*3/?L. The reference range was not used to interpret this result as normal/abnormal . GRAN MAT (NEUT) % 84.1 % (test code = 770-8) IMM GRAN % (test code 0.60 % = 1938840214) LYMPH % (test code = 4.2 % 736-9) MONO % (test code = 11.0 % 5905-5) EOS % (test code = 0.0 % 713-8) BASO % (test code = 0.1 % 706-2) GRAN MAT x10^3(ANC) 6.05 10*3/uL 1.88-7.09 (test code = 5578616947) IMM GRAN x10^3 (test 0.04 10*3/uL 0.00-0.06 code = 0039919502) LYMPH x10^3 (test code 0.30 10*3/uL 1.32-3.29 L = 731-0) MONO x10^3 (test code 0.79 10*3/uL 0.33-0.92 = 742-7) EOS x10^3 (test code = <0.03 0.03-0.39 L 711-2) BASO x10^3 (test code <0.03 0.01-0.07 = 704-7) POLYCHROMASIA (test 2+ See_Comment [Automa ramana code = 29778-1) message] The system which generated this result transmitted reference range : 2+. The referen ce range was not u sed to interpret th is result as normal/abnormal . Lab Interpretation Abnormal (test code = 04000-4) [facility] WITH [id number] 11:26:11 Test Item Value Reference Range Interpretation [...] RDW-SD (test code = 46.1 fL 39.0-49.9 58246-3) RDW-CV (test code = 15.2 % 12.0-15.5 788-0) PLT (test code = See_Comment L [Automated 777-3) message] The sy stem which generated this result transmitted reference range : 166 - 358 10*3/ ?L. The reference r susan was not used to interpret this result as normal/abnormal . MPV (test code = 11.0 fL 9.5-12.9 27672-3) IPF % (test code = 4.9 % 1.3-7.7 Platelet count 2739565260) measured by fluorescence method. NRBC/100 WBC (test See_Comment [Automat ed code = 6531219443) message] The system which generated this result transmitted reference range : 0.0 - 10.0 /100 WBCs. The refer ence range was not u sed to interpret th is result as normal/abnormal . NRBC x10^3 (test code <0.01 See_Comment [Auto mated = 4235473130) message] The s ystem which generated this result transmitted reference range : 10*3/?L. The reference range was not used to interpret this result as normal/abnormal . GRAN MAT (NEUT) % 84.1 % (test code = 770-8) IMM GRAN % (test code 0.60 % = 9475669452) LYMPH % (test code = 4.2 % 736-9) MONO % (test code = 11.0 % 5905-5) EOS % (test code = 0.0 % 713-8) BASO % (test code = 0.1 % 706-2) GRAN MAT x10^3(ANC) 6.05 10*3/uL 1.88-7.09 (test code = 8329204218) IMM GRAN x10^3 (test 0.04 10*3/uL 0.00-0.06 code = 1057102734) LYMPH x10^3 (test code 0.30 10*3/uL 1.32-3.29 L = 731-0) MONO x10^3 (test code 0.79 10*3/uL 0.33-0.92 = 742-7) EOS x10^3 (test code = <0.03 0.03-0.39 L 711-2) BASO x10^3 (test code <0.03 0.01-0.07 = 704-7) POLYCHROMASIA (test 2+ See_Comment [Automa ramana code = 14091-5) message] The system which generated this result transmitted reference range : 2+. The referen ce range was not u sed to interpret th is result as normal/abnormal . Lab Interpretation Abnormal (test code = 69406-9) [facility] WITH [id number] 11:26:11 Test Item Value Reference Range Interpretation [...] RDW-SD (test code = 46.1 fL 39.0-49.9 02416-5) RDW-CV (test code = 15.2 % 12.0-15.5 788-0) PLT (test code = See_Comment L [Automated 777-3) message] The sy stem which generated this result transmitted reference range : 166 - 358 10*3/ ?L. The reference r susan was not used to interpret this result as normal/abnormal . MPV (test code = 11.0 fL 9.5-12.9 91243-4) IPF % (test code = 4.9 % 1.3-7.7 Platelet count 8400174479) measured by fluorescence method. NRBC/100 WBC (test See_Comment [Automat ed code = 9631490246) message] The system which generated this result transmitted reference range : 0.0 - 10.0 /100 WBCs. The refer ence range was not u sed to interpret th is result as normal/abnormal . NRBC x10^3 (test code <0.01 See_Comment [Auto mated = 1693650031) message] The s ystem which generated this result transmitted reference range : 10*3/?L. The reference range was not used to interpret this result as normal/abnormal . GRAN MAT (NEUT) % 84.1 % (test code = 770-8) IMM GRAN % (test code 0.60 % = 6619039394) LYMPH % (test code = 4.2 % 736-9) MONO % (test code = 11.0 % 5905-5) EOS % (test code = 0.0 % 713-8) BASO % (test code = 0.1 % 706-2) GRAN MAT x10^3(ANC) 6.05 10*3/uL 1.88-7.09 (test code = 4985827348) IMM GRAN x10^3 (test 0.04 10*3/uL 0.00-0.06 code = 3127291841) LYMPH x10^3 (test code 0.30 10*3/uL 1.32-3.29 L = 731-0) MONO x10^3 (test code 0.79 10*3/uL 0.33-0.92 = 742-7) EOS x10^3 (test code = <0.03 0.03-0.39 L 711-2) BASO x10^3 (test code <0.03 0.01-0.07 = 704-7) POLYCHROMASIA (test 2+ See_Comment [Automa ramana code = 02922-1) message] The system which generated this result transmitted reference range : 2+. The referen ce range was not u sed to interpret th is result as normal/abnormal . Lab Interpretation Abnormal (test code = 84076-1) [facility] / [id number] 11:04:07 Test Item Value Reference Range Interpretation Comments PROTIME PATIENT (test See_Comment L [Auto mated message] code = 5964-2) The system [employer] generated this result transmitted ref erence range: 12.0 - 1 4.7 Seconds. The reference range was not used to int erpret this result as normal/abnormal . INR (test code = 6301-6) Nor mal INR <1.1; Warfarin Therap eutic range 2.0 to 3. 0 or 2.5 to 3.5, dep ending upon the indica tions. Lab Interpretation (test Abnormal code = 61168-2) [facility] / [id number] 11:04:07 Test Item Value Reference Range Interpretation Comments PROTIME PATIENT (test See_Comment L [Auto mated message] code = 5964-2) The system [employer] generated this result transmitted ref erence range: 12.0 - 1 4.7 Seconds. The reference range was not used to int erpret this result as normal/abnormal . INR (test code = 6301-6) Nor mal INR <1.1; Warfarin Therap eutic range 2.0 to 3. 0 or 2.5 to 3.5, dep ending upon the indica tions. Lab Interpretation (test Abnormal code = 00442-6) [facility] / [id number] 11:04:07 Test Item Value Reference Range Interpretation Comments PROTIME PATIENT (test See_Comment L [Auto mated message] code = 5964-2) The system [employer] ([employer]) ich generated this result transmitted ref erence range: 12.0 - 1 4.7 Seconds. The reference range was not used to int erpret this result as normal/abnormal . INR (test code = 6301-6) Nor mal INR <1.1; Warfarin Therap eutic range 2.0 to 3. 0 or 2.5 to 3.5, dep ending upon the indica tions. Lab Interpretation (test Abnormal code = 87035-2) [facility] 10:56:58 Test Item Value Reference Range Interpretation Comments Fibrinogen (test code = 2536507897) 233 mg/dL 167-453 Lab Interpretation (test code = Normal 87963-8) [facility] 10:56:58 Test Item Value Reference Range Interpretation Comments Fibrinogen (test code = 9399110275) 233 mg/dL 167-453 Lab Interpretation (test code = Normal 50936-6) [facility] 10:56:58 Test Item Value Reference Range Interpretation Comments Fibrinogen (test code = 7062225089) 233 mg/dL 167-453 Lab Interpretation (test code = Normal 97306-4) [facility] THRM[facility] [id number] 10:55:23 Test Item Value Reference Range Interpretation Comments APTT Patient (test code = See_Comment [ Automated message] 3173-2) The system [employer] generated this result transmitted ref erence range: 26 - 36 Seconds. The re ference range was not u sed to interpret this result as normal/abnor mal. Lab Interpretation (test Normal code = 34953-2) [facility] [id number] 10:55:23 Test Item Value Reference Range Interpretation Comments APTT Patient (test code = See_Comment [ Automated message] 3173-2) The system [employer] generated this result transmitted ref erence range: 26 - 36 Seconds. The re ference range was not u sed to interpret this result as normal/abnor mal. Lab Interpretation (test Normal code = 25092-1) [facility] [id number] 10:55:23 Test Item Value Reference Range Interpretation Comments APTT Patient (test code = See_Comment [ Automated message] 3173-2) The system [employer] generated this result transmitted ref erence range: 26 - 36 Seconds. The re ference range was not u sed to interpret this result as normal/abnor mal. Lab Interpretation (test Normal code = 84972-5) [facility] 20 + Lactic [id number] 10:32:44 Test Item Value Reference Range Interpretation Comments PH (test code = 2) 7.35-7.45 PCO2 (test code = See_Comment [Automate d 8875235907) message] The sy stem which generated this result transmitted reference range : 35 - 45 mmHg. The reference range was not used to interpret this result as normal/abnormal . PO2 (test code = See_Comment H [Automated 6080472421) message] The sy stem which generated this result transmitted reference range : 80 - 100 mmHg. The reference range was not used to interpret this result as normal/abnormal . HCO3 (test code = See_Comment [Automate d 8987608288) message] The sy stem which generated this result transmitted reference range : 22 - 26 mEq/L. The reference range was not used to interpret this result as normal/abnormal . BE (test code = See_Comment [Automated [id number]) message] The sy stem which generated this result transmitted reference range : -3.0 - 3.0 mEq/ L. The reference r susan was not used to interpret this result as normal/abnormal . THB (test code = 7.7 g/dL 12.0-16.0 LL 5786359870) %O2HB (test code = 97.4 % 94.0-99.0 1736444705) %COHB ART (test code = 1.4 % 0.0-1.5 0337916028) %METHB ART (test code = 0.3 % 0.4-1.5 L 6022284692) VOL%O2 ART (test code = 11.0 % 15.0-23.0 L 3733252735) NA (test code = 132 mmol/L 135-145 L 3455642815) K+ (test code = 3.9 mmol/L 3.5-5.0 5861784284) AC CA IONZ (test code = 5.40 mg/dL 4.50-5.30 H 4559086217) GLUCOSE (test code = 98 mg/dL 70-110 9988185650) LACTIC ACID (test code 1.16 mmol/L 0.50-2.20 = 6154930138) Lab Interpretation Abnormal (test code = 17601-9) [facility] Lactic [id number] 10:32:44 Test Item Value Reference Range Interpretation Comments PH (test code = 2) 7.35-7.45 PCO2 (test code = See_Comment [Automate d 6519074731) message] The sy stem which generated this result transmitted reference range : 35 - 45 mmHg. The reference range was not used to interpret this result as normal/abnormal . PO2 (test code = See_Comment H [Automated 7114458275) message] The sy stem which generated this result transmitted reference range : 80 - 100 mmHg. The reference range was not used to interpret this result as normal/abnormal . HCO3 (test code = See_Comment [Automate d 6440919095) message] The sy stem which generated this result transmitted reference range : 22 - 26 mEq/L. The reference range was not used to interpret this result as normal/abnormal . BE (test code = See_Comment [Automated 2824504630) message] The sy stem which generated this result transmitted reference range : -3.0 - 3.0 mEq/ L. The reference r susan was not used to interpret this result as normal/abnormal . THB (test code = 7.7 g/dL 12.0-16.0 LL 7839402007) %O2HB (test code = 97.4 % 94.0-99.0 2449960720) %COHB ART (test code = 1.4 % 0.0-1.5 0738721785) %METHB ART (test code = 0.3 % 0.4-1.5 L 5644126563) VOL%O2 ART (test code = 11.0 % 15.0-23.0 L 6091014592) NA (test code = 132 mmol/L 135-145 L 4484644550) K+ (test code = 3.9 mmol/L 3.5-5.0 1794341828) AC CA IONZ (test code = 5.40 mg/dL 4.50-5.30 H 6087700700) GLUCOSE (test code = 98 mg/dL 70-110 4123430129) LACTIC ACID (test code 1.16 mmol/L 0.50-2.20 = 9067966920) Lab Interpretation Abnormal (test code = 14837-0) [facility] Lactic [id number] 10:32:44 Test Item Value Reference Range Interpretation Comments PH (test code = 2) 7.35-7.45 PCO2 (test code = See_Comment [Automate d 5235576500) message] The sy stem which generated this result transmitted reference range : 35 - 45 mmHg. The reference range was not used to interpret this result as normal/abnormal . PO2 (test code = See_Comment H [Automated 3917810692) message] The sy stem which generated this result transmitted reference range : 80 - 100 mmHg. The reference range was not used to interpret this result as normal/abnormal . HCO3 (test code = See_Comment [Automate d 9793059153) message] The sy stem which generated this result transmitted reference range : 22 - 26 mEq/L. The reference range was not used to interpret this result as normal/abnormal . BE (test code = See_Comment [Automated 1729762327) message] The sy stem which generated this result transmitted reference range : -3.0 - 3.0 mEq/ L. The reference r susan was not used to interpret this result as normal/abnormal . THB (test code = 7.7 g/dL 12.0-16.0 LL 1936348314) %O2HB (test code = 97.4 % 94.0-99.0 9710091416) %COHB ART (test code = 1.4 % 0.0-1.5 5802026422) %METHB ART (test code = 0.3 % 0.4-1.5 L 1218241072) VOL%O2 ART (test code = 11.0 % 15.0-23.0 L 6743117942) NA (test code = 132 mmol/L 135-145 L 3804276409) K+ (test code = 3.9 mmol/L 3.5-5.0 5562277215) AC CA IONZ (test code = 5.40 mg/dL 4.50-5.30 H 6827680815) GLUCOSE (test code = 98 mg/dL 70-110 4753196909) LACTIC ACID (test code 1.16 mmol/L 0.50-2.20 = 5866232898) Lab Interpretation Abnormal (test code = 85300-1) [facility] / [id number] 10:25:01 Test Item Value Reference Range Interpretation Comments PROTIME PATIENT (test See_Comment L [Auto mated message] code = 5964-2) The system [employer] generated this result transmitted ref erence range: 12.0 - 1 4.7 Seconds. The reference range was not used to int erpret this result as normal/abnormal . INR (test code = 6301-6) Nor mal INR <1.1; Warfarin Therap eutic range 2.0 to 3. 0 or 2.5 to 3.5, dep ending upon the indica tions. Lab Interpretation (test Abnormal code = 25134-5) [facility] Time / [id number] 10:25:01 Test Item Value Reference Range Interpretation Comments PROTIME PATIENT (test See_Comment L [Auto mated message] code = 5964-2) The system [employer] generated this result transmitted ref erence range: 12.0 - 1 4.7 Seconds. The reference range was not used to int erpret this result as normal/abnormal . INR (test code = 6301-6) Nor mal INR <1.1; Warfarin Therap eutic range 2.0 to 3. 0 or 2.5 to 3.5, dep ending upon the indica tions. Lab Interpretation (test Abnormal code = 31120-6) [facility] Time / [id number] 10:25:01 Test Item Value Reference Range Interpretation Comments PROTIME PATIENT (test See_Comment L [Auto mated message] code = 5964-2) The system [employer] generated this result transmitted ref erence range: 12.0 - 1 4.7 Seconds. The reference range was not used to int erpret this result as normal/abnormal . INR (test code = 6301-6) Nor mal INR <1.1; Warfarin Therap eutic range 2.0 to 3. 0 or 2.5 to 3.5, dep ending upon the indica tions. Lab Interpretation (test Abnormal code = 06385-8) [facility] (in units)~2021-10-08 09:48:16 Test Item Value Reference Range Interpretation Comments Unit Blood Type (test A Pos code = 4410) ISBT Blood Type Code (test code = 794263) Unit Number (test code [id number] = 4411) Blood Expiration Date & Time (test code = 536462) Status Information Issued (test code = 4412) Product Identification FFP (test code = 4413) Product Code (test [id number] Performed at [facility] code = 4414) Laboratory Services - [facility] Blood [address] [address]Sbsi Free: [phone] A No. [id number] [facility] Plasma (in units)~2021-10-08 09:48:16 Test Item Value Reference Range Interpretation Comments Unit Blood Type (test A Pos code = 4410) ISBT Blood Type Code (test code = 363019) Unit Number (test code [id number] = 4411) Blood Expiration Date & Time (test code = 553966) Status Information Issued (test code = 4412) Product Identification FFP (test code = 4413) Product Code (test V0110K19 Performed at [facility] code = 4414) Laboratory Services - [facility] Blood [address] [place] [address]Nllu Free: [phone] A No. [id number] [facility] (in units)~2021-10-08 09:48:16 Test Item Value Reference Range Interpretation Comments Unit Blood Type (test A Pos code = 4410) ISBT Blood Type Code (test code = 250105) Unit Number (test code [id number] = 4411) Blood Expiration Date & Time (test code = 645979) Status Information Issued (test code = 4412) Product Identification FFP (test code = 4413) Product Code (test Q3194P13 Performed at [facility] code = 4414) Laboratory Services - [facility] Blood [address] [address]Cncd Free: [phone] A No. [id number] [facility] Packed RBC (in units)2021-10-08 09:47:11 Test Item Value Reference Range Interpretation Comments Cross Match Result Compatible (test code = 4409) ISBT Blood Type Code (test code = 109484) Unit Blood Type (test A Pos code = 4410) Unit Number (test [id number] code = 4411) Blood Expiration Date & Time (test code = 507037) Status Information Issued (test code = 4412) Product Red Blood Cells Identification (test code = 4413) Product Code (test X6289O29 Performed at [facility] code = 4414) Laboratory Services - [facility] Blood [address] [address]Wtwq Free: [phone] A No. [id number] [facility] Packed RBC (in units)2021-10-08 09:47:11 Test Item Value Reference Range Interpretation Comments Cross Match Result Compatible (test code = 4409) ISBT Blood Type Code (test code = 979304) Unit Blood Type (test A Pos code = 4410) Unit Number (test [id number] code = 4411) Blood Expiration Date & Time (test code = 329263) Status Information Issued (test code = 4412) Product Red Blood Cells Identification (test code = 4413) Product Code (test F5211L77 Performed at [facility] code = 4414) Laboratory Services - [facility] Blood [address] [address]Sxpu Free: [phone] A No. [id number] [facility] Packed RBC (in units)2021-10-08 09:47:11 Test Item Value Reference Range Interpretation Comments Cross Match Result Compatible (test code = 4409) ISBT Blood Type Code (test code = 457606) Unit Blood Type (test A Pos code = 4410) Unit Number (test [id number] code = 4411) Blood Expiration Date & Time (test code = 153166) Status Information Issued (test code = 4412) Product Red Blood Cells Identification (test code = 4413) Product Code (test G9920R46 Performed at [facility] code = 4414) Laboratory Services - [facility] Blood [address] [place] [address]Obij Free: [phone] A No. [id number] [facility] ClinicFIBRINOGEN2022-06-24 08:38:17 FibrinogenComment: PT/INR failed. Fib autoverified. Need new order. Spoke to MCKENZIE Mireles/Dr. Streeter. This is a corrected result. ?Previous result was 165 mg/dL on 10/08/[address] [place] [address] [facility] [id number] 08:38:17FibrinogenComment: PT/INR failed. Fib autoverified. Need new order. Spoke to MCKENZIE Mireles/Dr. Streeter. This is a corrected result. ?Previous result was 165 mg/dL on 10/08/[address] [place] [address] [facility] ClinicFIBRINOGEN2022-06-24 08:38:17FibrinogenComment: PT/INR failed. Fib autoverified. Need new order. Spoke to MCKENZIE Mireles/Dr. Streeter. This is a corrected result. ?Previous result was 165 mg/dL on 10/08/[address] [place] [address] [facility] and ClinicCBC WITHOUT [id number] 08:34:10 Test Item Value Reference Range Interpretation Comments WBC (test code = See_Comment [Automated message] 6690-2) The system [employer] generated this result transmitted ref erence range: 4.30 - 1 1.10 10*3/?L. The reference range was not used to int erpret this result as normal/abnormal . RBC (test code = 789-8) See_Comment L [Au tomated message] The system [employer] generated this result transmitted ref erence range: [...] See_Comment L [Au tomated message] The system [employer] generated this result transmitted ref erence range: 166 - 35 8 10*3/?L. The reference range was not used to int erpret this result as normal/abnormal . MPV (test code = 11.4 fL 9.5-12.9 67730-9) RDW-CV (test code = 14.8 % 12.0-15.5 788-0) RDW-SD (test code = 47.3 fL 39.0-49.9 64212-5) NRBC x10^3 (test code = <0.01 See_Comment [Au tomated message] 9471325572) The system [employer] generated this result transmitted ref erence range: 10*3/?L. The reference range was not used to int erpret this result as normal/abnormal . NRBC/100 WBC (test code See_Comment [Au tomated message] = 8507760801) The system [employer] generated this result transmitted ref erence range: 0.0 - 10 .0 /100 WBCs. The reference range was not used to int erpret this result as normal/abnormal . IPF % (test code = 5.9 % 1.3-7.7 Platelet count 6275472881) measured by fluorescence me thod. Lab Interpretation Abnormal (test code = 74259-5) [facility] WITHOUT [id number] 08:34:10 Test Item Value Reference Range Interpretation Comments WBC (test code = See_Comment [Automated message] 6690-2) The system [employer] generated this result transmitted ref erence range: 4.30 - 1 1.10 10*3/?L. The reference range was not used to int erpret this result as normal/abnormal . RBC (test code = 789-8) See_Comment L [Au tomated message] The system [employer] generated this result transmitted ref erence range: [...] See_Comment L [Au tomated message] The system [employer] generated this result transmitted ref erence range: 166 - 35 8 10*3/?L. The reference range was not used to int erpret this result as normal/abnormal . MPV (test code = 11.4 fL 9.5-12.9 97430-5) RDW-CV (test code = 14.8 % 12.0-15.5 788-0) RDW-SD (test code = 47.3 fL 39.0-49.9 40257-4) NRBC x10^3 (test code = <0.01 See_Comment [Au tomated message] 6772763543) The system [employer] generated this result transmitted ref erence range: 10*3/?L. The reference range was not used to int erpret this result as normal/abnormal . NRBC/100 WBC (test code See_Comment [Au tomated message] = 4018783238) The system [facility] generated this result transmitted ref erence range: 0.0 - 10 .0 /100 WBCs. The reference range was not used to int erpret this result as normal/abnormal . IPF % (test code = 5.9 % 1.3-7.7 Platelet count 8230186000) measured by fluorescence me thod. Lab Interpretation Abnormal (test code = 46997-5) [facility] WITHOUT [id number] 08:34:10 Test Item Value Reference Range Interpretation Comments WBC (test code = See_Comment [Automated message] 6690-2) The system [employer] generated this result transmitted ref erence range: 4.30 - 1 1.10 10*3/?L. The reference range was not used to int erpret this result as normal/abnormal . RBC (test code = 789-8) See_Comment L [Au tomated message] The system [employer] generated this result transmitted ref erence range: [...] See_Comment L [Au tomated message] The system [employer] generated this result transmitted ref erence range: 166 - 35 8 10*3/?L. The reference range was not used to int erpret this result as normal/abnormal . MPV (test code = 11.4 fL 9.5-12.9 09538-6) RDW-CV (test code = 14.8 % 12.0-15.5 788-0) RDW-SD (test code = 47.3 fL 39.0-49.9 87299-2) NRBC x10^3 (test code = <0.01 See_Comment [Au tomated message] 0064050601) The system [employer] generated this result transmitted ref erence range: 10*3/?L. The reference range was not used to int erpret this result as normal/abnormal . NRBC/100 WBC (test code See_Comment [Au tomated message] = 7808273187) The system [employer] generated this result transmitted ref erence range: 0.0 - 10 .0 /100 WBCs. The reference range was not used to int erpret this result as normal/abnormal . IPF % (test code = 5.9 % 1.3-7.7 Platelet count 1762178511) measured by fluorescence me thod. Lab Interpretation Abnormal (test code = 57990-1) [facility] Cryoprecipitate (in units)~2021-10-08 07:24:24 Test Item Value Reference Range Interpretation Comments Unit Blood Type (test A code = 4410) ISBT Blood Type Code A000 (test code = 098796) Unit Number (test [id number] code = 4411) Blood Expiration Date & Time (test code = 541808) Status Information Issued (test code = 4412) Product Cryoprecipitate Identification (test code = 4413) Product Code (test [id number] Performed at [facility] code = 4414) Laboratory Services - [facility] Blood [address] [address]Xpwo Free: [phone] A No. [id number] [facility] Cryoprecipitate (in units)~2021-10-08 07:24:24 Test Item Value Reference Range Interpretation Comments Unit Blood Type (test A code = 4410) ISBT Blood Type Code A000 (test code = 955620) Unit Number (test [id number] code = 4411) Blood Expiration Date & Time (test code = 825415) Status Information Issued (test code = 4412) Product Cryoprecipitate Identification (test code = 4413) Product Code (test D4367U05 Performed at [facility] code = 4414) Laboratory Services - [facility] Blood [address] [address]Ceyu Free: [phone] A No. [id number] [facility] Cryoprecipitate (in units)~2021-10-08 07:24:24 Test Item Value Reference Range Interpretation Comments Unit Blood Type (test A code = 4410) ISBT Blood Type Code A000 (test code = 432454) Unit Number (test [id number] code = 4411) Blood Expiration Date & Time (test code = 977821) Status Information Issued (test code = 4412) Product Cryoprecipitate Identification (test code = 4413) Product Code (test F3453Y56 Performed at [facility] code = 4414) Laboratory Services - [facility] Blood [address] [place] [address]Jjgu Free: [phone] A No. [id number] [facility] METABOLIC PANEL (NA, K, CL, CO2, GLUCOSE, BUN, CREATININE, CA)2021-10-08 07:14:23 Test Item Value Reference Range Interpretation Comments NA (test code = 134 mmol/L 135-145 L 8735344003) K (test code = 4.6 mmol/L 3.5-5.0 0390199168) CL (test code = 109 mmol/L 98-108 H 4493585220) CO2 TOTAL (test code = 21 mmol/L 23-31 L 7904626951) AGAP (test code = 2-16 4927249369) BUN (test code = 9 mg/dL 7-23 9804542659) GLUCOSE (test code = 206 mg/dL 70-110 H 3376480265) CREATININE (test code = 0.61 mg/dL 0.50-1.04 9353083119) CALCIUM (test code = 7.5 mg/dL 8.6-10.6 L 0718819445) eGFR (test code = mL/min/1.73m2 2416307405) MICKY (test code = MICKY) Association of [...] tests). Lab Interpretation Abnormal (test code = 82978-0) [facility] (NA, K, CL, CO2, GLUCOSE, BUN, CREATININE, CA)2021-10-08 07:14:23 Test Item Value Reference Range Interpretation Comments NA (test code = 134 mmol/L 135-145 L 6781586600) K (test code = 4.6 mmol/L 3.5-5.0 2959084215) CL (test code = 109 mmol/L 98-108 H 7257711710) CO2 TOTAL (test code = 21 mmol/L 23-31 L 3763517034) AGAP (test code = 2-16 1294719504) BUN (test code = 9 mg/dL 7-23 2432232631) GLUCOSE (test code = 206 mg/dL 70-110 H 2452380973) CREATININE (test code = 0.61 mg/dL 0.50-1.04 1262690437) CALCIUM (test code = 7.5 mg/dL 8.6-10.6 L 9584856995) eGFR (test code = mL/min/1.73m2 6737578711) MICKY (test code = MICKY) Association of [...] tests). Lab Interpretation Abnormal (test code = 30430-8) [facility] METABOLIC PANEL (NA, K, CL, CO2, GLUCOSE, BUN, CREATININE, CA)2021-10-08 07:14:23 Test Item Value Reference Range Interpretation Comments NA (test code = 134 mmol/L 135-145 L 1251889372) K (test code = 4.6 mmol/L 3.5-5.0 4367940916) CL (test code = 109 mmol/L 98-108 H 8687643746) CO2 TOTAL (test code = 21 mmol/L 23-31 L 3975896165) AGAP (test code = 2-16 4016786722) BUN (test code = 9 mg/dL 7-23 7474875857) GLUCOSE (test code = 206 mg/dL 70-110 H 6153603286) CREATININE (test code = 0.61 mg/dL 0.50-1.04 4247595619) CALCIUM (test code = 7.5 mg/dL 8.6-10.6 L 3765958052) eGFR (test code = mL/min/1.73m2 5896689248) MICKY (test code = MICKY) Association of [...] tests). Lab Interpretation Abnormal (test code = 02497-7) [facility]2022-[facility] 06:46:57 Test Item Value Reference Range Interpretation Comments Fibrinogen (test code = 9287794900) 174 mg/dL 167-453 Lab Interpretation (test code = Normal 30184-2) [facility]2022-06-24 06:46:57 Test Item Value Reference Range Interpretation Comments Fibrinogen (test code = 0901277064) 174 mg/dL 167-453 Lab Interpretation (test code = Normal 80910-5) [facility]2022-06-24 06:46:57 Test Item Value Reference Range Interpretation Comments Fibrinogen (test code = 2390262586) 174 mg/dL 167-453 Lab Interpretation (test code = Normal 99804-0) [facility]2022-06-24 06:45:07 Test Item Value Reference Range Interpretation Comments Fibrinogen (test code = 4818437492) 196 mg/dL 167-453 Lab Interpretation (test code = Normal 36858-1) [facility]2022-06-24 06:45:07 Test Item Value Reference Range Interpretation Comments Fibrinogen (test code = 6178014789) 196 mg/dL 167-453 Lab Interpretation (test code = Normal 52944-2) [facility]2022-06-24 06:45:07 Test Item Value Reference Range Interpretation Comments Fibrinogen (test code = 0611162981) 196 mg/dL 167-453 Lab Interpretation (test code = Normal 85207-3) [facility] Platelets (in units)~2021-10-08 06:44:36 Test Item Value Reference Range Interpretation Comments Unit Blood Type (test A Pos code = 4410) ISBT Blood Type Code (test code = 355976) Unit Number (test code [id number] = 4411) Blood Expiration Date & Time (test code = 110013) Status Information Issued (test code = 4412) Product Identification Platelets (test code = 4413) Product Code (test [id number] Performed at [facility] code = 4414) Laboratory Services [facility] Blood [address] [address]Bqlv Free: [phone] A No. [id number] [facility] Platelets (in units)~2021-10-08 06:44:36 Test Item Value Reference Range Interpretation Comments Unit Blood Type (test A Pos code = 4410) ISBT Blood Type Code (test code = 069232) Unit Number (test code [id number] = 4411) Blood Expiration Date & Time (test code = 407800) Status Information Issued (test code = 4412) Product Identification Platelets (test code = 4413) Product Code (test D4590ZY7 Performed at [facility] code = 4414) Laboratory Services - [facility] Blood [address] [address]Rzkb Free: [phone] A No. [id number] [facility] Platelets (in units)~2021-10-08 06:44:36 Test Item Value Reference Range Interpretation Comments Unit Blood Type (test A Pos code = 4410) ISBT Blood Type Code (test code = 464094) Unit Number (test code [id number] = 4411) Blood Expiration Date & Time (test code = 908228) Status Information Issued (test code = 4412) Product Identification Platelets (test code = 4413) Product Code (test H2335OC7 Performed at [facility] code = 4414) Laboratory Services - [facility] Blood [address] [place], [place] [address]vestonNoé [address]Wwwz Free: [phone] A No. [id number] [facility] ClinicACT[facility] PARTIAL THRMPLAS [id number] 06:44:01 Test Item Value Reference Range Interpretation Comments APTT Patient (test code = See_Comment [ Automated message] 3173-2) The system [employer] generated this result transmitted ref erence range: 26 - 36 Seconds. The re ference range was not u sed to interpret this result as normal/abnor mal. Lab Interpretation (test Normal code = 31945-3) [facility] ClinicProthrombin Time / [id number] 06:44:01 Test Item Value Reference Range Interpretation Comments PROTIME PATIENT (test See_Comment H [Auto mated message] code = 5964-2) The system [employer] generated this result transmitted ref erence range: 10.1 - 1 2.6 Seconds. The reference range was not used to int erpret this result as normal/abnormal . INR (test code = 6301-6) Nor mal INR <1.1; Warfarin Therap eutic range 2.0 to 3. 0 or 2.5 to 3.5, dep ending upon the indica tions. Lab Interpretation (test Abnormal code = 46848-3) [facility] THRM[facility] [id number] 06:44:01 Test Item Value Reference Range Interpretation Comments APTT Patient (test code = See_Comment [ Automated message] 3173-2) The system [employer] generated this result transmitted ref erence range: 26 - 36 Seconds. The re ference range was not u sed to interpret this result as normal/abnor mal. Lab Interpretation (test Normal code = 12577-1) [facility] [facility] / [id number] 06:44:01 Test Item Value Reference Range Interpretation Comments PROTIME PATIENT (test See_Comment H [Auto mated message] code = 5964-2) The system [employer] generated this result transmitted ref erence range: 10.1 - 1 2.6 Seconds. The reference range was not used to int erpret this result as normal/abnormal . INR (test code = 6301-6) Nor mal INR <1.1; Warfarin Therap eutic range 2.0 to 3. 0 or 2.5 to 3.5, dep ending upon the indica tions. Lab Interpretation (test Abnormal code = 94599-4) [facility] [id number] 06:44:01 Test Item Value Reference Range Interpretation Comments APTT Patient (test code = See_Comment [ Automated message] 3173-2) The system [facility] [employer] generated this result transmitted ref erence range: 26 - 36 Seconds. The re ference range was not u sed to interpret this result as normal/abnor mal. Lab Interpretation (test Normal code = 47478-1) [facility] / [id number] 06:44:01 Test Item Value Reference Range Interpretation Comments PROTIME PATIENT (test See_Comment H [Auto mated message] code = 5964-2) The system [employer] generated this result transmitted ref erence range: 10.1 - 1 2.6 Seconds. The reference range was not used to int erpret this result as normal/abnormal . INR (test code = 6301-6) Nor mal INR <1.1; Warfarin Therap eutic range 2.0 to 3. 0 or 2.5 to 3.5, dep ending upon the indica tions. Lab Interpretation (test Abnormal code = 74569-0) [facility] WITH [id number] 06:33:16 Test Item Value Reference Range Interpretation [...] (test code = 51.9 fL 39.0-49.9 H 63070-8) RDW-CV (test code = 16.2 % 12.0-15.5 H 788-0) PLT (test code = See_Comment [Automated 777-3) message] The system which generated this result transmit ramana reference range : 166 - 358 10*3/ ?L. The reference range was not u sed to interpret th is result as normal/abnormal . MPV (test code = 11.3 fL 9.5-12.9 78279-2) NRBC/100 WBC (test See_Comment [Automat ed code = 5319575837) message] The system which generated this result transmit ramana reference range : 0.0 - 10.0 /100 WBCs. The reference range was not used to interpret this result as normal/abnormal . NRBC x10^3 (test code <0.01 See_Comment [Auto mated = 3366521724) message] The system which generated this result transmit ramana reference range : 10*3/?L. The reference range was not used to interpret this result as normal/abnormal . GRAN MAT (NEUT) % 86.0 % (test code = 770-8) IMM GRAN % (test code 0.80 % = 8625263721) LYMPH % (test code = 3.8 % 736-9) MONO % (test code = 9.3 % 5905-5) EOS % (test code = 0.0 % 713-8) BASO % (test code = 0.1 % 706-2) GRAN MAT x10^3(ANC) 11.38 10*3/uL 1.88-7.09 H (test code = 8446668717) IMM GRAN x10^3 (test 0.10 10*3/uL 0.00-0.06 H code = 9285912601) LYMPH x10^3 (test code 0.50 10*3/uL 1.32-3.29 L = 731-0) MONO x10^3 (test code 1.23 10*3/uL 0.33-0.92 H = 742-7) EOS x10^3 (test code = <0.03 0.03-0.39 L 711-2) BASO x10^3 (test code <0.03 0.01-0.07 = 704-7) Lab Interpretation Abnormal (test code = 17343-8) [facility] WITH [id number] 06:33:16 Test Item Value Reference Range Interpretation [...] (test code = 51.9 fL 39.0-49.9 H 54304-9) RDW-CV (test code = 16.2 % 12.0-15.5 H 788-0) PLT (test code = See_Comment [Automated 777-3) message] The system which generated this result transmit ramana reference range : 166 - 358 10*3/ ?L. The reference range was not u sed to interpret th is result as normal/abnormal . MPV (test code = 11.3 fL 9.5-12.9 72657-1) NRBC/100 WBC (test See_Comment [Automat ed code = 3811220202) message] The system which generated this result transmit ramana reference range : 0.0 - 10.0 /100 WBCs. The reference range was not used to interpret this result as normal/abnormal . NRBC x10^3 (test code <0.01 See_Comment [Auto mated = 6157017667) message] The system which generated this result transmit ramana reference range : 10*3/?L. The reference range was not used to interpret this result as normal/abnormal . GRAN MAT (NEUT) % 86.0 % (test code = 770-8) IMM GRAN % (test code 0.80 % = 3575576089) LYMPH % (test code = 3.8 % 736-9) MONO % (test code = 9.3 % 5905-5) EOS % (test code = 0.0 % 713-8) BASO % (test code = 0.1 % 706-2) GRAN MAT x10^3(ANC) 11.38 10*3/uL 1.88-7.09 H (test code = 1554056300) IMM GRAN x10^3 (test 0.10 10*3/uL 0.00-0.06 H code = 2615084837) LYMPH x10^3 (test code 0.50 10*3/uL 1.32-3.29 L = 731-0) MONO x10^3 (test code 1.23 10*3/uL 0.33-0.92 H = 742-7) EOS x10^3 (test code = <0.03 0.03-0.39 L 711-2) BASO x10^3 (test code <0.03 0.01-0.07 = 704-7) Lab Interpretation Abnormal (test code = 77464-0) [facility] WITH [id number] 06:33:16 Test Item Value Reference Range Interpretation [...] (test code = 51.9 fL 39.0-49.9 H 97724-9) RDW-CV (test code = 16.2 % 12.0-15.5 H 788-0) PLT (test code = See_Comment [Automated 777-3) message] The system which generated this result transmit ramana reference range : 166 - 358 10*3/ ?L. The reference range was not u sed to interpret th is result as normal/abnormal . MPV (test code = 11.3 fL 9.5-12.9 32515-0) NRBC/100 WBC (test See_Comment [Automat ed code = 7419625461) message] The system which generated this result transmit ramana reference range : 0.0 - 10.0 /100 WBCs. The reference range was not used to interpret this result as normal/abnormal . NRBC x10^3 (test code <0.01 See_Comment [Auto mated = 1981780191) message] The system which generated this result transmit ramana reference range : 10*3/?L. The reference range was not used to interpret this result as normal/abnormal . GRAN MAT (NEUT) % 86.0 % (test code = 770-8) IMM GRAN % (test code 0.80 % = 5318789873) LYMPH % (test code = 3.8 % 736-9) MONO % (test code = 9.3 % 5905-5) EOS % (test code = 0.0 % 713-8) BASO % (test code = 0.1 % 706-2) GRAN MAT x10^3(ANC) 11.38 10*3/uL 1.88-7.09 H (test code = 2066922792) IMM GRAN x10^3 (test 0.10 10*3/uL 0.00-0.06 H code = 4262710988) LYMPH x10^3 (test code 0.50 10*3/uL 1.32-3.29 L = 731-0) MONO x10^3 (test code 1.23 10*3/uL 0.33-0.92 H = 742-7) EOS x10^3 (test code = <0.03 0.03-0.39 L 711-2) BASO x10^3 (test code <0.03 0.01-0.07 = 704-7) Lab Interpretation Abnormal (test code = 74151-2) [facility] + LACTIC [id number] 06:25:43 Test Item Value Reference Range Interpretation Comments PH (test code = 7.32-7.42 L 0939917356) PCO2 SHAY (test code = See_Comment [Auto mated 9223286286) message] The sy stem which generated this result transmitted reference range : 41 - 51 mmHg. The reference range was not used to interpret this result as normal/abnormal . PO2 SHAY (test code = See_Comment L [Autom ated 6504934046) message] The sy stem which generated this result transmitted reference range : 25 - 40 mmHg. The reference range was not used to interpret this result as normal/abnormal . HCO3 SHAY (test code = See_Comment L [Auto mated 1803681146) message] The sy stem which generated this result transmitted reference range : 24 - 28 mEq/L. The reference range was not used to interpret this result as normal/abnormal . AC VBE(BEAKER) (test mEq/L code = 2647284191) THB SHAY (test code = 6.1 g/dL 12.0-16.0 LL 0351867769) %O2HB SHAY (test code = 26.6 % 52.0-63.0 L 1094139272) %COHB SHAY (test code = 1.0 % 0.0-1.5 1366118546) %METHB SHAY (test code = 0.9 % 0.4-1.5 6041221057) VOL%O2 SHAY (test code = 2.3 % 6.0-12.0 L 4689291021) NA (test code = 130 mmol/L 135-145 L 5304505180) K+ (test code = 4.3 mmol/L 3.5-5.0 1844908092) AC CA IONZ (test code = 4.60 mg/dL 4.50-5.30 3047892545) GLUCOSE (test code = 239 mg/dL 70-110 H 1788977987) LACTIC ACID (test code 3.16 mmol/L 0.50-2.20 H = 1073551824) Lab Interpretation Abnormal (test code = 79237-2) [facility] LACTIC [id number] 06:25:43 Test Item Value Reference Range Interpretation Comments PH (test code = 7.32-7.42 L 8404336733) PCO2 SHAY (test code = See_Comment [Auto mated 4781034697) message] The sy stem which generated this result transmitted reference range : 41 - 51 mmHg. The reference range was not used to interpret this result as normal/abnormal . PO2 SHAY (test code = See_Comment L [Autom ated 2776596027) message] The sy stem which generated this result transmitted reference range : 25 - 40 mmHg. The reference range was not used to interpret this result as normal/abnormal . HCO3 SHAY (test code = See_Comment L [Auto mated 3657197764) message] The sy stem which generated this result transmitted reference range : 24 - 28 mEq/L. The reference range was not used to interpret this result as normal/abnormal . AC VBE(BEAKER) (test mEq/L code = 7467896086) THB SHAY (test code = 6.1 g/dL 12.0-16.0 LL 6906797454) %O2HB SHAY (test code = 26.6 % 52.0-63.0 L 3414411040) %COHB SHAY (test code = 1.0 % 0.0-1.5 9280360225) %METHB SHAY (test code = 0.9 % 0.4-1.5 3830494634) VOL%O2 SHAY (test code = 2.3 % 6.0-12.0 L 0387059133) NA (test code = 130 mmol/L 135-145 L 2688185959) K+ (test code = 4.3 mmol/L 3.5-5.0 4888790356) AC CA IONZ (test code = 4.60 mg/dL 4.50-5.30 1405170577) GLUCOSE (test code = 239 mg/dL 70-110 H 5876933405) LACTIC ACID (test code 3.16 mmol/L 0.50-2.20 H = 5550807018) Lab Interpretation Abnormal (test code = 80339-1) [facility]IC [id number] 06:25:43 Test Item Value Reference Range Interpretation Comments PH (test code = 7.32-7.42 L 5634865088) PCO2 SHAY (test code = See_Comment [Auto mated 6411739068) message] The sy stem which generated this result transmitted reference range : 41 - 51 mmHg. The reference range was not used to interpret this result as normal/abnormal . PO2 SHAY (test code = See_Comment L [Autom ated 8184094877) message] The sy stem which generated this result transmitted reference range : 25 - 40 mmHg. The reference range was not used to interpret this result as normal/abnormal . HCO3 SHAY (test code = See_Comment L [Auto mated 1352136253) message] The sy stem which generated this result transmitted reference range : 24 - 28 mEq/L. The reference range was not used to interpret this result as normal/abnormal . AC VBE(BEAKER) (test mEq/L code = 7378730494) THB SHAY (test code = 6.1 g/dL 12.0-16.0 LL 6646646960) %O2HB SHAY (test code = 26.6 % 52.0-63.0 L 4513104489) %COHB SHAY (test code = 1.0 % 0.0-1.5 2915730683) %METHB SHAY (test code = 0.9 % 0.4-1.5 6948844147) VOL%O2 SHAY (test code = 2.3 % 6.0-12.0 L 8839406436) NA (test code = 130 mmol/L 135-145 L 0578131482) K+ (test code = 4.3 mmol/L 3.5-5.0 5677876406) AC CA IONZ (test code = 4.60 mg/dL 4.50-5.30 5549610542) GLUCOSE (test code = 239 mg/dL 70-110 H 5761167926) LACTIC ACID (test code 3.16 mmol/L 0.50-2.20 H = 5926260331) Lab Interpretation Abnormal (test code = 07247-4) [facility] METABOLIC PANEL (NA, K, CL, CO2, GLUCOSE, BUN, CREATININE, CA)2021-10-08 05:38:11 Test Item Value Reference Range Interpretation Comments NA (test code = 132 mmol/L 135-145 L 2886441618) K (test code = 4.7 mmol/L 3.5-5.0 8045568850) CL (test code = 107 mmol/L 98-108 6993043204) CO2 TOTAL (test code = 20 mmol/L 23-31 L 4352860649) AGAP (test code = 2-16 6891975669) BUN (test code = 8 mg/dL 7-23 3307619376) GLUCOSE (test code = 322 mg/dL 70-110 H 2074083853) CREATININE (test code = 0.65 mg/dL 0.50-1.04 7541701995) CALCIUM (test code = 7.7 mg/dL 8.6-10.6 L 3176748251) eGFR (test code = mL/min/1.73m2 2074645226) MICKY (test code = MICKY) Association of [...] tests). Lab Interpretation Abnormal (test code = 58389-7) [facility] 05:38:11 Test Item Value Reference Range Interpretation Comments MAGNESIUM (test code = 8158777869) 1.6 mg/dL 1.7-2.4 L Lab Interpretation (test code = Abnormal 03440-5) [facility] (NA, K, CL, CO2, GLUCOSE, BUN, CREATININE, CA)2021-10-08 05:38:11 Test Item Value Reference Range Interpretation Comments NA (test code = 132 mmol/L 135-145 L 0429572824) K (test code = 4.7 mmol/L 3.5-5.0 0210740034) CL (test code = 107 mmol/L 98-108 4617286331) CO2 TOTAL (test code = 20 mmol/L 23-31 L 2963847147) AGAP (test code = 2-16 9925623574) BUN (test code = 8 mg/dL 7-23 7484566588) GLUCOSE (test code = 322 mg/dL 70-110 H 5543841831) CREATININE (test code = 0.65 mg/dL 0.50-1.04 7856274169) CALCIUM (test code = 7.7 mg/dL 8.6-10.6 L 6369541552) eGFR (test code = mL/min/1.73m2 2168911077) MICKY (test code = MICKY) Association of [...] tests). Lab Interpretation Abnormal (test code = 06973-0) [facility] 05:38:11 Test Item Value Reference Range Interpretation Comments MAGNESIUM (test code = 0004415156) 1.6 mg/dL 1.7-2.4 L Lab Interpretation (test code = Abnormal 99076-2) [facility] (NA, K, CL, CO2, GLUCOSE, BUN, CREATININE, CA)2021-10-08 05:38:11 Test Item Value Reference Range Interpretation Comments NA (test code = 132 mmol/L 135-145 L 8457177061) K (test code = 4.7 mmol/L 3.5-5.0 9261723508) CL (test code = 107 mmol/L 98-108 7315067990) CO2 TOTAL (test code = 20 mmol/L 23-31 L 4071474053) AGAP (test code = 2-16 8411004256) BUN (test code = 8 mg/dL 7-23 1992577701) GLUCOSE (test code = 322 mg/dL 70-110 H 1816869646) CREATININE (test code = 0.65 mg/dL 0.50-1.04 5114815066) CALCIUM (test code = 7.7 mg/dL 8.6-10.6 L 2564749943) eGFR (test code = mL/min/1.73m2 4802470711) MICKY (test code = MICKY) Association of [...] tests). Lab Interpretation Abnormal (test code = 35765-2) [facility] Test Item Value Reference Range Interpretation Comments MAGNESIUM (test code = 1220600814) 1.6 mg/dL 1.7-2.4 L Lab Interpretation (test code = Abnormal 30674-2) [facility] WITH [id number] 04:49:24 Test Item Value Reference Range Interpretation [...] (test code = 59.6 fL 39.0-49.9 H 97984-1) RDW-CV (test code = 17.4 % 12.0-15.5 H 788-0) PLT (test code = See_Comment [Automated 777-3) message] The sy stem which generated this result transmitted reference range : 166 - 358 10*3/ ?L. The reference r susan was not used to interpret this result as normal/abnormal . MPV (test code = 11.5 fL 9.5-12.9 83786-4) NRBC/100 WBC (test See_Comment [Automat ed code = 1026281324) message] The system which generated this result transmitted reference range : 0.0 - 10.0 /100 WBCs. The refer ence range was not u sed to interpret th is result as normal/abnormal . NRBC x10^3 (test code <0.01 See_Comment [Auto mated = 5445458845) message] The s ystem which generated this result transmitted reference range : 10*3/?L. The reference range was not used to interpret this result as normal/abnormal . GRAN MAT (NEUT) % 90.2 % (test code = 770-8) IMM GRAN % (test code 0.60 % = 9667426686) LYMPH % (test code = 3.9 % 736-9) MONO % (test code = 5.2 % 5905-5) EOS % (test code = 0.0 % 713-8) BASO % (test code = 0.1 % 706-2) GRAN MAT x10^3(ANC) 8.42 10*3/uL 1.88-7.09 H (test code = 0862161678) IMM GRAN x10^3 (test 0.06 10*3/uL 0.00-0.06 code = 9268436950) LYMPH x10^3 (test code 0.36 10*3/uL 1.32-3.29 L = 731-0) MONO x10^3 (test code 0.49 10*3/uL 0.33-0.92 = 742-7) EOS x10^3 (test code = <0.03 0.03-0.39 L 711-2) BASO x10^3 (test code <0.03 0.01-0.07 = 704-7) Lab Interpretation Abnormal (test code = 25282-6) [facility] WITH [id number] 04:49:24 Test Item Value Reference Range Interpretation Comments WBC (test code = See_Comment [Automated 8990-2) message] The sy stem which generated this result transmitted reference range : 4.30 - 11.10 10*3/?L. The reference range was not used to interpret this result as normal/abnormal . RBC (test code = See_Comment L [Automated 579-8) message] The sy stem which generated this [...] (test code = 59.6 fL 39.0-49.9 H 14241-2) RDW-CV (test code = 17.4 % 12.0-15.5 H 788-0) PLT (test code = See_Comment [Automated 777-3) message] The sy stem which generated this result transmitted reference range : 166 - 358 10*3/ ?L. The reference r susan was not used to interpret this result as normal/abnormal . MPV (test code = 11.5 fL 9.5-12.9 22342-1) NRBC/100 WBC (test See_Comment [Automat ed code = 0227177602) message] The system which generated this result transmitted reference range : 0.0 - 10.0 /100 WBCs. The refer ence range was not u sed to interpret th is result as normal/abnormal . NRBC x10^3 (test code <0.01 See_Comment [Auto mated = 9570363100) message] The s ystem which generated this result transmitted reference range : 10*3/?L. The reference range was not used to interpret this result as normal/abnormal . GRAN MAT (NEUT) % 90.2 % (test code = 770-8) IMM GRAN % (test code 0.60 % = 3665179565) LYMPH % (test code = 3.9 % 736-9) MONO % (test code = 5.2 % 5905-5) EOS % (test code = 0.0 % 713-8) BASO % (test code = 0.1 % 706-2) GRAN MAT x10^3(ANC) 8.42 10*3/uL 1.88-7.09 H (test code = 7761225916) IMM GRAN x10^3 (test 0.06 10*3/uL 0.00-0.06 code = 2354335238) LYMPH x10^3 (test code 0.36 10*3/uL 1.32-3.29 L = 731-0) MONO x10^3 (test code 0.49 10*3/uL 0.33-0.92 = 742-7) EOS x10^3 (test code = <0.03 0.03-0.39 L 711-2) BASO x10^3 (test code <0.03 0.01-0.07 = 704-7) Lab Interpretation Abnormal (test code = 44301-3) [facility] WITH [id number] 04:49:24 Test Item Value Reference Range Interpretation [...] (test code = 59.6 fL 39.0-49.9 H 33923-5) RDW-CV (test code = 17.4 % 12.0-15.5 H 788-0) PLT (test code = See_Comment [Automated 777-3) message] The sy stem which generated this result transmitted reference range : 166 - 358 10*3/ ?L. The reference r susan was not used to interpret this result as normal/abnormal . MPV (test code = 11.5 fL 9.5-12.9 84500-0) NRBC/100 WBC (test See_Comment [Automat ed code = 3727612241) message] The system which generated this result transmitted reference range : 0.0 - 10.0 /100 WBCs. The refer ence range was not u sed to interpret th is result as normal/abnormal . NRBC x10^3 (test code <0.01 See_Comment [Auto mated = 7155273134) message] The s ystem which generated this result transmitted reference range : 10*3/?L. The reference range was not used to interpret this result as normal/abnormal . GRAN MAT (NEUT) % 90.2 % (test code = 770-8) IMM GRAN % (test code 0.60 % = 0665778101) LYMPH % (test code = 3.9 % 736-9) MONO % (test code = 5.2 % 5905-5) EOS % (test code = 0.0 % 713-8) BASO % (test code = 0.1 % 706-2) GRAN MAT x10^3(ANC) 8.42 10*3/uL 1.88-7.09 H (test code = 1964817628) IMM GRAN x10^3 (test 0.06 10*3/uL 0.00-0.06 code = 9947788652) LYMPH x10^3 (test code 0.36 10*3/uL 1.32-3.29 L = 731-0) MONO x10^3 (test code 0.49 10*3/uL 0.33-0.92 = 742-7) EOS x10^3 (test code = <0.03 0.03-0.39 L 711-2) BASO x10^3 (test code <0.03 0.01-0.07 = 704-7) Lab Interpretation Abnormal (test code = 31949-5) [facility] P[facility] RBC (in units), 1 Units 2021-10-08 04:27:22 Test Item Value Reference Range Interpretation Comments Cross Match Result Compatible (test code = 4409) ISBT Blood Type Code (test code = 046956) Unit Blood Type (test A Pos code = 4410) Unit Number (test [id number] code = 4411) Blood Expiration Date & Time (test code = 247418) Status Information Issued (test code = 4412) Product Red Blood Cells Identification (test code = 4413) Product Code (test [id number] Performed at [facility] code = 4414) Laboratory Services [facility] Blood [address] [address]Iqay Free: [phone] A No. [id number] [facility] Packed RBC (in units), 1 Units 2021-10-08 04:27:22 Test Item Value Reference Range Interpretation Comments Cross Match Result Compatible (test code = 4409) ISBT Blood Type Code (test code = 859729) Unit Blood Type (test A Pos code = 4410) Unit Number (test [id number] code = 4411) Blood Expiration Date & Time (test code = 743609) Status Information Issued (test code = 4412) Product Red Blood Cells Identification (test code = 4413) Product Code (test [id number] Performed at [facility] code = 4414) Laboratory Services [facility] Blood [address] [address]Mg[address] Free: [phone] A [facility]. [id number] [facility] (in units), 1 Units 2021-10-08 04:27:22 Test Item Value Reference Range Interpretation Comments Cross Match Result Compatible (test code = 4409) ISBT Blood Type Code (test code = 679887) Unit Blood Type (test A Pos code = 4410) Unit Number (test [id number] code = 4411) Blood Expiration Date & Time (test code = 031931) Status Information Issued (test code = 4412) Product Red Blood Cells Identification (test code = 4413) Product Code (test [id number] Performed at [facility] code = 4414) Laboratory Services [facility] Blood [address] [address]Rwyu Free: [phone] A No. [id number] [facility] ClinicPO[facility] ([facility])2021-10-08 03:52:59 Test Item Value Reference Range Interpretation Comments POCT GLU (test code = 6447961555) 261 mg/dL 70-110 H Lab Interpretation (test code = Abnormal 27993-0) [facility] GLUCOSE (AUTOMATED)2021-10-08 03:52:59 Test Item Value Reference Range Interpretation Comments POCT GLU (test code = 9397819838) 261 mg/dL 70-110 H Lab Interpretation (test code = Abnormal 03112-4) [facility] GLUCOSE (AUTOMATED)2021-10-08 03:52:59 Test Item Value Reference Range Interpretation Comments POCT GLU (test code = 2701598482) 261 mg/dL 70-110 H Lab Interpretation (test code = Abnormal 41956-4) [facility] WITH [id number] 00:07:18 Test Item Value Reference Range Interpretation [...] (test code = 60.2 fL 39.0-49.9 H 91450-2) RDW-CV (test code = 17.7 % 12.0-15.5 H 788-0) PLT (test code = See_Comment [Automated 777-3) message] The sy stem which generated this result transmitted reference range : 166 - 358 10*3/ ?L. The reference r susan was not used to interpret this result as normal/abnormal . MPV (test code = 11.6 fL 9.5-12.9 57300-1) NRBC/100 WBC (test See_Comment [Automat ed code = 6330436445) message] The system which generated this result transmitted reference range : 0.0 - 10.0 /100 WBCs. The refer ence range was not u sed to interpret th is result as normal/abnormal . NRBC x10^3 (test code <0.01 See_Comment [Auto mated = 3892723576) message] The s ystem which generated this result transmitted reference range : 10*3/?L. The reference range was not used to interpret this result as normal/abnormal . GRAN MAT (NEUT) % 93.5 % (test code = 770-8) IMM GRAN % (test code 0.80 % = 4181003094) LYMPH % (test code = 3.4 % 736-9) MONO % (test code = 2.2 % 5905-5) EOS % (test code = 0.0 % 713-8) BASO % (test code = 0.1 % 706-2) GRAN MAT x10^3(ANC) 9.81 10*3/uL 1.88-7.09 H (test code = 7301669406) IMM GRAN x10^3 (test 0.08 10*3/uL 0.00-0.06 H code = 1920106481) LYMPH x10^3 (test code 0.36 10*3/uL 1.32-3.29 L = 731-0) MONO x10^3 (test code 0.23 10*3/uL 0.33-0.92 L = 742-7) EOS x10^3 (test code = <0.03 0.03-0.39 L 711-2) BASO x10^3 (test code <0.03 0.01-0.07 = 704-7) Lab Interpretation Abnormal (test code = 37360-4) [facility] WITH [id number] 00:07:18 Test Item Value Reference Range Interpretation [...] (test code = 60.2 fL 39.0-49.9 H 44786-8) RDW-CV (test code = 17.7 % 12.0-15.5 H 788-0) PLT (test code = See_Comment [Automated 777-3) message] The sy stem which generated this result transmitted reference range : 166 - 358 10*3/ ?L. The reference r susan was not used to interpret this result as normal/abnormal . MPV (test code = 11.6 fL 9.5-12.9 90244-7) NRBC/100 WBC (test See_Comment [Automat ed code = [id number]) message] The system which generated this result transmitted reference range : 0.0 - 10.0 /100 WBCs. The refer ence range was not u sed to interpret th is result as normal/abnormal . NRBC x10^3 (test code <0.01 See_Comment [Auto mated = [id number]) message] The s ystem which generated this result transmitted reference range : 10*3/?L. The reference range was not used to interpret this result as normal/abnormal . GRAN MAT (NEUT) % 93.5 % (test code = 770-8) IMM GRAN % (test code 0.80 % = 5799711517) LYMPH % (test code = 3.4 % 736-9) MONO % (test code = 2.2 % 5905-5) EOS % (test code = 0.0 % 713-8) BASO % (test code = 0.1 % 706-2) GRAN MAT x10^3(ANC) 9.81 10*3/uL 1.88-7.09 H (test code = 5019827546) IMM GRAN x10^3 (test 0.08 10*3/uL 0.00-0.06 H code = 1758047100) LYMPH x10^3 (test code 0.36 10*3/uL 1.32-3.29 L = 731-0) MONO x10^3 (test code 0.23 10*3/uL 0.33-0.92 L = 742-7) EOS x10^3 (test code = <0.03 0.03-0.39 L 711-2) BASO x10^3 (test code <0.03 0.01-0.07 = 704-7) Lab Interpretation Abnormal (test code = 93047-9) [facility] WITH [id number] 00:07:18 Test Item Value Reference Range Interpretation [...] (test code = 60.2 fL 39.0-49.9 H 16920-7) RDW-CV (test code = 17.7 % 12.0-15.5 H 788-0) PLT (test code = See_Comment [Automated 777-3) message] The sy stem which generated this result transmitted reference range : 166 - 358 10*3/ ?L. The reference r susan was not used to interpret this result as normal/abnormal . MPV (test code = 11.6 fL 9.5-12.9 86113-3) NRBC/100 WBC (test See_Comment [Automat ed code = 5346795494) message] The system which generated this result transmitted reference range : 0.0 - 10.0 /100 WBCs. The refer ence range was not u sed to interpret th is result as normal/abnormal . NRBC x10^3 (test code <0.01 See_Comment [Auto mated = 1451938041) message] The s ystem which generated this result transmitted reference range : 10*3/?L. The reference range was not used to interpret this result as normal/abnormal . GRAN MAT (NEUT) % 93.5 % (test code = 770-8) IMM GRAN % (test code 0.80 % = 0167552554) LYMPH % (test code = 3.4 % 736-9) MONO % (test code = 2.2 % 5905-5) EOS % (test code = 0.0 % 713-8) BASO % (test code = 0.1 % 706-2) GRAN MAT x10^3(ANC) 9.81 10*3/uL 1.88-7.09 H (test code = 7703902999) IMM GRAN x10^3 (test 0.08 10*3/uL 0.00-0.06 H code = 7041434626) LYMPH x10^3 (test code 0.36 10*3/uL 1.32-3.29 L = 731-0) MONO x10^3 (test code 0.23 10*3/uL 0.33-0.92 L = 742-7) EOS x10^3 (test code = <0.03 0.03-0.39 L 711-2) BASO x10^3 (test code <0.03 0.01-0.07 = 704-7) Lab Interpretation Abnormal (test code = 12292-9) [facility] P[facility] RBC (in units), 2 Units 2021-10-07 21:08:55 Test Item Value Reference Range Interpretation Comments Cross Match Result Compatible (test code = 4409) ISBT Blood Type Code (test code = 050083) Unit Blood Type (test A Pos code = 4410) Unit Number (test [id number] code = 4411) Blood Expiration Date & Time (test code = 569211) Status Information Issued (test code = 4412) Product Red Blood Cells Identification (test code = 4413) Product Code (test [id number] Performed at [facility] code = 4414) Laboratory Services [facility] Blood [address] [address]Yqfr Free: [phone] A No. [id number] [facility] Packed RBC (in units), 2 Units 2021-10-07 21:08:55 Test Item Value Reference Range Interpretation Comments Cross Match Result Compatible (test code = 4409) ISBT Blood Type Code (test code = 735009) Unit Blood Type (test A Pos code = 4410) Unit Number (test [id number] code = 4411) Blood Expiration Date & Time (test code = 709416) Status Information Issued (test code = 4412) Product Red Blood Cells Identification (test code = 4413) Product Code (test [id number] Performed at [facility] code = 4414) Laboratory Services [facility] Blood [address] [address]Qsnl Free: [phone] A No. [id number] [facility] Packed RBC (in units), 2 Units 2021-10-07 21:08:55 Test Item Value Reference Range Interpretation Comments Cross Match Result Compatible (test code = 4409) ISBT Blood Type Code (test code = 786193) Unit Blood Type (test A Pos code = 4410) Unit Number (test [id number] code = 4411) Blood Expiration Date & Time (test code = 679543) Status Information Issued (test code = 4412) Product Red Blood Cells Identification (test code = 4413) Product Code (test [id number] Performed at [facility] code = 4414) Laboratory Services - [facility] Blood [address] [address]Qtdv Free: [phone] A No. [id number] [facility]. METABOLIC PANEL (91283)2021-10-07 12:06:32 Test Item Value Reference Range Interpretation Comments NA (test code = 139 mmol/L 135-145 0472716746) K (test code = 4.1 mmol/L 3.5-5.0 5965061325) CL (test code = 110 mmol/L 98-108 H 4641154446) CO2 TOTAL (test code = 24 mmol/L 23-31 8176715665) AGAP (test code = 2-16 0592249022) BUN (test code = 6 mg/dL 7-23 L 3789687385) GLUCOSE (test code = 95 mg/dL 70-110 4977922328) CREATININE (test code = 0.48 mg/dL 0.50-1.04 L 1127538378) TOTAL BILI (test code = 0.3 mg/dL 0.1-1.6 6029265174) CALCIUM (test code = 8.2 mg/dL 8.6-10.6 L 1233791480) T PROTEIN (test code = 6.3 g/dL 6.3-8.2 0441897517) ALBUMIN (test code = 3.2 g/dL 3.5-5.0 L 2175201780) ALK PHOS (test code = 60 U/L 34-122 8273918044) ALTv (test code = 12 U/L 5-35 1742-6) AST(SGOT) (test code = 19 U/L 13-40 3778498434) eGFR (test code = mL/min/1.73m2 1047359284) MICKY (test code = MICKY) Association of [...] tests). Lab Interpretation Abnormal (test code = 28634-7) [facility]. METABOLIC PANEL (76346)2021-10-07 12:06:32 Test Item Value Reference Range Interpretation Comments NA (test code = 139 mmol/L 135-145 1646235464) K (test code = 4.1 mmol/L 3.5-5.0 9052698347) CL (test code = 110 mmol/L 98-108 H 8784068256) CO2 TOTAL (test code = 24 mmol/L 23-31 9914631501) AGAP (test code = 2-16 2937390137) BUN (test code = 6 mg/dL 7-23 L 1321732693) GLUCOSE (test code = 95 mg/dL 70-110 5818299382) CREATININE (test code = 0.48 mg/dL 0.50-1.04 L 3519415268) TOTAL BILI (test code = 0.3 mg/dL 0.1-1.8 7207168056) CALCIUM (test code = 8.2 mg/dL 8.6-10.6 L 2168427723) T PROTEIN (test code = 6.3 g/dL 6.3-8.2 8618951895) ALBUMIN (test code = 3.2 g/dL 3.5-5.0 L 4902839520) ALK PHOS (test code = 60 U/L 34-122 7148118628) ALTv (test code = 12 U/L 5-35 1742-6) AST(SGOT) (test code = 19 U/L 13-40 9100723064) eGFR (test code = mL/min/1.73m2 7519442902) MICKY (test code = MICKY) Association of [...] tests). Lab Interpretation Abnormal (test code = 03212-1) [facility]. METABOLIC PANEL (31323)2021-10-07 12:06:32 Test Item Value Reference Range Interpretation Comments NA (test code = 139 mmol/L 135-145 4110773331) K (test code = 4.1 mmol/L 3.5-5.0 7874167559) CL (test code = 110 mmol/L 98-108 H 8952499453) CO2 TOTAL (test code = 24 mmol/L 23-31 2809899887) AGAP (test code = 2-16 6373849314) BUN (test code = 6 mg/dL 7-23 L 8829449662) GLUCOSE (test code = 95 mg/dL 70-110 5126739831) CREATININE (test code = 0.48 mg/dL 0.50-1.04 L 6352879103) TOTAL BILI (test code = 0.3 mg/dL 0.1-1.6 7206628852) CALCIUM (test code = 8.2 mg/dL 8.6-10.6 L 8694586682) T PROTEIN (test code = 6.3 g/dL 6.3-8.2 8686168677) ALBUMIN (test code = 3.2 g/dL 3.5-5.0 L 7290332140) ALK PHOS (test code = 60 U/L 34-122 8334283589) ALTv (test code = 12 U/L 5-35 1742-6) AST(SGOT) (test code = 19 U/L 13-40 0636815160) eGFR (test code = mL/min/1.73m2 8813943417) MICKY (test code = MICKY) Association of [...] tests). Lab Interpretation Abnormal (test code = 14105-8) [facility] Time / [id number] 00:45:45 Test Item Value Reference Range Interpretation Comments PROTIME PATIENT (test See_Comment H [Auto mated message] code = 5964-2) The system [employer] generated this result transmitted ref erence range: 10.1 - 1 2.6 Seconds. The reference range was not used to int erpret this result as normal/abnormal . INR (test code = 6301-6) Nor mal INR <1.1; Warfarin Therap eutic range 2.0 to 3. 0 or 2.5 to 3.5, dep ending upon the indica tions. Lab Interpretation (test Abnormal code = 71079-5) [facility] [id number] 00:45:45 Test Item Value Reference Range Interpretation Comments APTT Patient (test code See_Comment L [Au tomated message] = 3173-2) The system [employer] generated this result transmitted ref erence range: 26 - 36 Seconds. The reference range was not used to int erpret this result as normal/abnormal . Lab Interpretation (test Abnormal code = 14181-0) [facility] Clinic[facility]EN2022-06-23 00:45:45 Test Item Value Reference Range Interpretation Comments Fibrinogen (test code = 6714512750) 306 mg/dL 167-453 Lab Interpretation (test code = Normal 42881-9) [facility] / [id number] 00:45:45 Test Item Value Reference Range Interpretation Comments PROTIME PATIENT (test See_Comment H [Auto mated message] code = 5964-2) The system [employer] generated this result transmitted ref erence range: 10.1 - 1 2.6 Seconds. The reference range was not used to int erpret this result as normal/abnormal . INR (test code = 6301-6) Nor mal INR <1.1; Warfarin Therap eutic range 2.0 to 3. 0 or 2.5 to 3.5, dep ending upon the indica tions. Lab Interpretation (test Abnormal code = 50411-4) [facility] [id number] 00:45:45 Test Item Value Reference Range Interpretation Comments APTT Patient (test code See_Comment L [Au tomated message] = 3173-2) The system [employer] generated this result transmitted ref erence range: 26 - 36 Seconds. The reference range was not used to int erpret this result as normal/abnormal . Lab Interpretation (test Abnormal code = 86920-3) [facility]2022-06-23 00:45:45 Test Item Value Reference Range Interpretation Comments Fibrinogen (test code = 4394890538) 306 mg/dL 167-453 Lab Interpretation (test code = Normal 94816-6) [facility] Time / [id number] 00:45:45 Test Item Value Reference Range Interpretation Comments PROTIME PATIENT (test See_Comment H [Auto mated message] code = 5964-2) The system [employer] generated this result transmitted ref erence range: 10.1 - 1 2.6 Seconds. The reference range was not used to int erpret this result as normal/abnormal . INR (test code = 6301-6) Nor mal INR <1.1; Warfarin Therap eutic range 2.0 to 3. 0 or 2.5 to 3.5, dep ending upon the indica tions. Lab Interpretation (test Abnormal code = 95978-6) [facility] [id number] 00:45:45 Test Item Value Reference Range Interpretation Comments APTT Patient (test code See_Comment L [Au tomated message] = 3173-2) The system [employer] generated this result transmitted ref erence range: 26 - 36 Seconds. The reference range was not used to int erpret this result as normal/abnormal . Lab Interpretation (test Abnormal code = 25829-2) [facility]2022-[facility]-23 00:45:45 Test Item Value Reference Range Interpretation Comments Fibrinogen (test code = 0758991366) 306 mg/dL 167-453 Lab Interpretation (test code = Normal 28225-2) [facility] WITH [id number] 00:39:06 Test Item Value Reference Range Interpretation [...] (test code = 62.5 fL 39.0-49.9 H 45200-5) RDW-CV (test code = 19.2 % 12.0-15.5 H 788-0) PLT (test code = See_Comment L [Automated 777-3) message] The sy stem which generated this result transmitted reference range : 166 - 358 10*3/ ?L. The reference r susan was not used to interpret this result as normal/abnormal . MPV (test code = 10.4 fL 9.5-12.9 14013-0) NRBC/100 WBC (test See_Comment [Automat ed code = 6884558901) message] The system which generated this result transmitted reference range : 0.0 - 10.0 /100 WBCs. The refer ence range was not u sed to interpret th is result as normal/abnormal . NRBC x10^3 (test code <0.01 See_Comment [Auto mated = 4908518322) message] The s ystem which generated this result transmitted reference range : 10*3/?L. The reference range was not used to interpret this result as normal/abnormal . GRAN MAT (NEUT) % 64.9 % (test code = 770-8) IMM GRAN % (test code 0.40 % = 8423893398) LYMPH % (test code = 24.5 % 736-9) MONO % (test code = 6.8 % 5905-5) EOS % (test code = 3.0 % 713-8) BASO % (test code = 0.4 % 706-2) GRAN MAT x10^3(ANC) 3.23 10*3/uL 1.88-7.09 (test code = 5503662926) IMM GRAN x10^3 (test <0.03 0.00-0.06 code = 5748356208) LYMPH x10^3 (test code 1.22 10*3/uL 1.32-3.29 L = 731-0) MONO x10^3 (test code 0.34 10*3/uL 0.33-0.92 = 742-7) EOS x10^3 (test code = 0.15 10*3/uL 0.03-0.39 711-2) BASO x10^3 (test code <0.03 0.01-0.07 = 704-7) Lab Interpretation Abnormal (test code = 70663-6) [facility] WITH [id number] 00:39:06 Test Item Value Reference Range Interpretation [...] (test code = 62.5 fL 39.0-49.9 H 59504-3) RDW-CV (test code = 19.2 % 12.0-15.5 H 788-0) PLT (test code = See_Comment L [Automated 777-3) message] The sy stem which generated this result transmitted reference range : 166 - 358 10*3/ ?L. The reference r susan was not used to interpret this result as normal/abnormal . MPV (test code = 10.4 fL 9.5-12.9 90661-8) NRBC/100 WBC (test See_Comment [Automat ed code = 1185998248) message] The system which generated this result transmitted reference range : 0.0 - 10.0 /100 WBCs. The refer ence range was not u sed to interpret th is result as normal/abnormal . NRBC x10^3 (test code <0.01 See_Comment [Auto mated = 5743044444) message] The s ystem which generated this result transmitted reference range : 10*3/?L. The reference range was not used to interpret this result as normal/abnormal . GRAN MAT (NEUT) % 64.9 % (test code = 770-8) IMM GRAN % (test code 0.40 % = 9366640010) LYMPH % (test code = 24.5 % 736-9) MONO % (test code = 6.8 % 5905-5) EOS % (test code = 3.0 % 713-8) BASO % (test code = 0.4 % 706-2) GRAN MAT x10^3(ANC) 3.23 10*3/uL 1.88-7.09 (test code = 0446190136) IMM GRAN x10^3 (test <0.03 0.00-0.06 code = 5902430944) LYMPH x10^3 (test code 1.22 10*3/uL 1.32-3.29 L = 731-0) MONO x10^3 (test code 0.34 10*3/uL 0.33-0.92 = 742-7) EOS x10^3 (test code = 0.15 10*3/uL 0.03-0.39 711-2) BASO x10^3 (test code <0.03 0.01-0.07 = 704-7) Lab Interpretation Abnormal (test code = 15170-1) [facility] WITH [id number] 00:39:06 Test Item Value Reference Range Interpretation [...] (test code = 62.5 fL 39.0-49.9 H 17683-4) RDW-CV (test code = 19.2 % 12.0-15.5 H 788-0) PLT (test code = See_Comment L [Automated 777-3) message] The sy stem which generated this result transmitted reference range : 166 - 358 10*3/ ?L. The reference r susan was not used to interpret this result as normal/abnormal . MPV (test code = 10.4 fL 9.5-12.9 27138-4) NRBC/100 WBC (test See_Comment [Automat ed code = 3524578255) message] The system which generated this result transmitted reference range : 0.0 - 10.0 /100 WBCs. The refer ence range was not u sed to interpret th is result as normal/abnormal . NRBC x10^3 (test code <0.01 See_Comment [Auto mated = 4646902240) message] The s ystem which generated this result transmitted reference range : 10*3/?L. The reference range was not used to interpret this result as normal/abnormal . GRAN MAT (NEUT) % 64.9 % (test code = 770-8) IMM GRAN % (test code 0.40 % = 2065447554) LYMPH % (test code = 24.5 % 736-9) MONO % (test code = 6.8 % 5905-5) EOS % (test code = 3.0 % 713-8) BASO % (test code = 0.4 % 706-2) GRAN MAT x10^3(ANC) 3.23 10*3/uL 1.88-7.09 (test code = 8567642304) IMM GRAN x10^3 (test <0.03 0.00-0.06 code = 6725606106) LYMPH x10^3 (test code 1.22 10*3/uL 1.32-3.29 L = 731-0) MONO x10^3 (test code 0.34 10*3/uL 0.33-0.92 = 742-7) EOS x10^3 (test code = 0.15 10*3/uL 0.03-0.39 711-2) BASO x10^3 (test code <0.03 0.01-0.07 = 704-7) Lab Interpretation Abnormal (test code = 25078-8) [facility] - ONCE [id number] 21:53:57 Test Item Value Reference Range Interpretation Comments ABO & RH (test code A POSITIVE Performe d at [facility] = 20) Laboratory Serv [facility] Blood Bank3 [facility] s [address]Qbih Free: [phone] A No. [id number] IAT (test code = Negative Performed a t [facility] 1185) Laboratory Serv [facility] Blood Bank3 [facility] s [address]Rxea Free: [phone] A No. [id number] [facility] BranchType and Screen - This is a pre-surgical type and screen. ONCE [id number] 21:53:57 Test Item Value Reference Range Interpretation Comments ABO & RH (test code A POSITIVE Performe d at [facility] = 20) Laboratory [facility] access hospital Blood Bank[address] [place] [address] s [address]Timh Free: [phone] A No. [id number] IAT (test code = Negative Performed a t [facility] 1185) Laboratory Critical access hospital Blood Bank[address] [place] [address] s [address]Hcvo Free: [phone] A No. [id number] [facility] - ONCE [id number] 21:53:57 Test Item Value Reference Range Interpretation Comments ABO & RH (test code A POSITIVE Performe d at [facility] = 20) Laboratory [facility] Blood Bank[address] [place] [address] s [address]Qlig Free: [phone] A No. [id number] IAT (test code = Negative Performed a t [facility] 1185) Laboratory [facility] access hospital Blood Bank[address] [place] [address] s [address]Wjid Free: [phone] A No. [id number] [facility] - This is a pre-surgical type and screen. ONCE [id number] 21:53:57 Test Item Value Reference Range Interpretation Comments ABO & RH (test code A POSITIVE Performe d at [facility] = 20) Laboratory [facility] Blood Bank[address] [place] [address] s [address]Tdlv Free: [phone] A No. [id number] IAT (test code = Negative Performed a t [facility] 1185) Laboratory [facility] access hospital Blood Bank[address] [place] [address] s [address]Qiay Free: [phone] A No. [id number] [facility] BranchType [facility] Screen - ONCE [id number] 21:53:57 Test Item Value Reference Range Interpretation Comments ABO & RH (test code A POSITIVE Performe d at [facility] = 20) Laboratory Serv [facility] Blood Bank3 [address] [facility] s [address]Jgyl Free: [phone] A No. [id number] IAT (test code = Negative Performed a t [facility] 1185) Laboratory [facility] Blood Bank[address] [place] [address] s [address]Jrpf Free: [phone] A No. [id number] [facility] - This is a pre-surgical type and screen. ONCE [id number] 21:53:57 Test Item Value Reference Range Interpretation Comments ABO & RH (test code A POSITIVE Performe d at [facility] = 20) Laboratory [facility] access [facility] Blood Bank[address] [place] [address] s [address]Nqkv Free: [phone] A No. [id number] IAT (test code = Negative Performed a t [facility] 1185) Laboratory [facility] access hospital Blood Bank[address] [place] [address] s [address]Qddi Free: [phone] A No. [id number] [facility] Clinic[facility] [id number] 20:12:00 Test Item Value Reference Range Interpretation Comments POCT PREG (test code = 1605) Negative On board controls acceptable with C Yes Line (test code = 3574) POCT PREG LOT # (test code = 3575) POCT PREG TEST DATE (test code = 3576) [id number] 20:12:00 Test Item Value Reference Range Interpretation Comments POCT PREG (test code = 1605) Negative On board controls acceptable with C Yes Line (test code = 3574) POCT PREG LOT # (test code = 3575) POCT PREG TEST DATE (test code = 3576) [facility] [id number] 20:12:00 Test Item Value Reference Range Interpretation Comments POCT PREG (test code = 1605) Negative On board controls acceptable with C Yes Line (test code = 3574) POCT PREG LOT # (test code = 3575) POCT PREG TEST DATE (test code = 3576) [facility] W/AUTO [id number] 08:31:00 Test Item Value Reference Range Interpretation [...] REQUIRED (test code = PLTMR) CBC W/AUTO [id number] 13:59:00 Test Item Value Reference Range Interpretation [...] STEVE.RE AD BACK & CONFIRME D? Y.BY [id number] 05/04/21 1356 IMMATURE PLATELET 6.0 % 0.0-10.8 [...] REQUIRED (test code = PLTMR) CBC W/AUTO [id number] 00:52:00 Test Item Value Reference Range Interpretation Comments WHITE BLOOD CELL (test 6.5 K/mm3 6.5-12.3 N code = WBC) RED BLOOD CELL (test 2.45 M/mm3 3.51-4.69 L code = RBC) HEMOGLOBIN (test code = 6.4 g/dL 10.1-13.8 LL RESU LTS CALLED TO HGB) CLIFFORD DAHLIA AD BACK & CONFIRME D? YBY [id number] 05/04/21 0025 HEMATOCRIT (test code = 21.5 [...] REQUIRED (test code = PLTMR) COMPREHENSIVE METABOLIC [id number] 00:38:00 Test Item Value Reference Range Interpretation [...] units/L 46-116 N code = ALKP) PROTHROMBIN [id number] 00:35:00 Test Item Value Reference Range Interpretation Comments PROTHROMBIN TIME PATIENT (test code 13.6 secs 10.1-12.3 H = PTP) THROMBOPLASTIN TIME [id number] 00:35:00 Test Item Value Reference Range Interpretation Comments THROMBOPLASTIN TIME PARTIAL (test 30.6 secs 22-38 N code = PTT) - DUP AB/PEL/SC/[id number] 00:00:00 [facility] S[place] : 1985 Sex: F Patient Name: SEKOU CAMPBELL Unit No: [id number] EXAMS: CPT CODE: [id number] DUP AB/PEL/SC/LTD 20735 PROCEDURE INFORMATION: Exam: US Pelvis Complete (Transabdominal), [...] and signed by: Reza Alexandre MD [facility] NAME: SEKOU CAMPBELL Radiology Department PHYS: LASHELLMICHELLEPercy Chelo Ramírez MD [address] : 1985 AGE: 35 SEX: F [place] [address] LOC: Maya.ERS PHONE #: [phone] EXAM DATE: 05/04/2021 STATUS: REG ER FAX #: [phone] RAD NO: Page 1 Signed Report (CONTINUED) Patient Name: SEKOU CAMPBELL Unit No: [id number] EXAMS: CPT CODE: [id number] DUP AB/PEL/SC/LTD 57747 (Continued) CC: Chelo Ramírez MD Technologist: Griselda Streeter RDMS Probe: Trnscrbd D/ (0121) GCD.CPS Orig Print D/T: S: 05/04/2021 (0124) [facility] NAME: SEKOU CAMPBELL MICHAELWEI Radiology Department PHYS: MICHELLE Chelo Ramírez MD [address] : 1985 AGE: 35 SEX: F [place] [address] LOC: Maya.ERS PHONE #: [phone] EXAM DATE: 05/04/2021 STATUS: REG ER FAX #: [phone] RAD NO: Page 2 Signed Report Patient Name: SEKOU CAMPBELL Unit No: [id number] EXAMS: CPT CODE: [id number] DUP AB/PEL/SC/LTD 31945 (Continued) [facility] NAME: SEKOU CAMPBELL MICHAELEASTANOLLEE Radiology Department PHYS: KHAH Chelo Ramírez MD [address] : 1985 AGE: 35 SEX: F [place], [place] [address] LOC: JOSSUE PHONE #: [phone] EXAM DATE: 05/04/2021 STATUS: GERBER ER FAX #: [phone] RAD NO: Page 3 Signed Report- US PELVIS [id number] 00:00:00 [facility] : 1985 Sex: F Patient Name: SEKOU CAMPBELL Unit No: [id number] EXAMS: CPT CODE: [id number] US PELVIS COMPLETE 11036 PROCEDURE INFORMATION: Exam: US Pelvis Complete (Transabdominal), [...] and signed by: Reza Alexandre MD [facility] NAME: SEKOU CAMPBELL Radiology Department PHYS: KHAHE. Chelo Ramírez MD [address] : 1985 AGE: 35 SEX: F [place], [place] [address] LOC: LiatERS PHONE #: [phone] EXAM DATE: 05/04/2021 STATUS: REG ER FAX #: [phone] RAD NO: Page 1 Signed Report (CONTINUED) Patient Name: SEKOU CAMPBELL Unit No: [id number] EXAMS: CPT CODE: [id number] US PELVIS COMPLETE [id number] (Continued) CC: Chelo Ramírez MD Technologist: Griselda Streeter RDMS Probe: Trnscrbd D/ (0121) GCD.CPS Orig Print D/T: S: 05/04/2021 (0121) [facility] NAME: SEKOU CAMPBELL Radiology Department PHYS: CRISTIAN Schrader Chelo Ramírez MD [address] : 1985 AGE: 35 SEX: F [place], [place] [address] LOC: [place] PHONE #: [phone] EXAM DATE: 05/04/2021 STATUS: REG ER FAX #: [phone] RAD NO: Page 2 Signed Report Patient Name: SEKOU CAMPBELL Unit No: [id number] EXAMS: CPT CODE: [id number] US PELVIS COMPLETE 80597 (Continued) [facility] NAME: SEKOU CAMPBELL Radiology Department PHYS: Chelo Ramírez MD [address] : 1985 AGE: 35 SEX: F [place] [address] LOC: F.ERS PHONE #: [phone] EXAM DATE: 05/04/2021 STATUS: REG ER FAX #: [phone] RAD NO: Page 3 Signed Report- US TRANSVAGINAL [id number] 00:00:00 [facility] 1985 Sex: F Patient Name: SEKOU CAMPBELL Unit No: [id number] EXAMS: CPT CODE: [id number] US TRANSVAGINAL W/PELVIS 06429 PROCEDURE INFORMATION: Exam: US Pelvis Complete (Transabdominal), [...] and signed by: Reza Alexandre MD [facility] NAME: SEKOU CAMPBELL Radiology Department PHYS: Chelo Ramírez MD [address]OB: 1985 AGE: 35 SEX: F [place] [address] LOC: Maya.ERS PHONE #: [phone] EXAM DATE: 05/04/2021 STATUS: REG ER FAX #: [phone] RAD NO: Page 1 Signed Report (CONTINUED) Patient Name: SEOKU CAMPBELL Unit No: [id number] EXAMS: CPT CODE: [id number] US TRANSVAGINAL W/PELVIS 41559 (Continued) CC: Chelo Ramírez MD Technologist: Griselda Streeter, [facility] Probe: [id number] Trnscrbd D/ (0121) GCD.CPS Orig Print D/T: S: 05/04/2021 (0122) [facility] NAME: SEKOU CAMPBELL Radiology Department PHYS: Chelo Ramírez MD [address] : 1985 AGE: 35 SEX: F [place] [address] LOC: LiatERS PHONE #: [phone] EXAM DATE: 05/04/2021 STATUS: REG ER FAX #: [phone] RAD NO: Page 2 Signed Report Patient Name: SEKOU CAMPBELL Unit No: [id number] EXAMS: CPT CODE: [id number] US TRANSVAGINAL W/PEL VIS 51140 (Continued) [facility] NAME: SEKOU CAMPBELL Radiology Department PHYS: DEMIAN Chelo Ramírez MD [address] : 1985 AGE: 35 SEX: F [place] [address] LOC: Maya.ERS PHONE #: [phone] EXAM DATE: 05/04/2021 STATUS: REG ER FAX #: [phone] RAD NO: Page 3 Signed Report- DUP VEIN [id number] 08:04:00 [facility] : 1985 Sex: F Patient Name: SEKOU CAMPBELL Unit No: [id number] EXAMS: CPT CODE: [id number] DUP VEIN SAMANTHA [address]128 BILATERAL LOWER EXTREMITY DUPLEX VENOUS DOPPLER ULTRASOUND, [...] MCGOWAN RDMS, T Probe: Trnscrbd D/ (0804) [email or web address] Orig Print D/T: S: 05/04/2020 (0807) [facility] NAME: SEKOU CAMPBELL Radiology Department PHYS: Magdalena Borrego MD [address] : 1985 AGE: 34 SEX: F [place] [address] LOC: LiatIC4 A PHONE #: [phone] EXAM DATE: 05/04/2020 STATUS: ADM IN FAX #: [phone] RAD NO: Page 1 Signed Report Patient Name: SEKOU CAMPBELL Unit No: [id number] EXAMS: CPT CODE: [id number] DUP VEIN SAMANTHA 46468 (Continued) [facility] NAME: SEKOU CAMPBELL Radiology Department PHYS: Magdalena Reyes MD [address] : 1985 AGE: 34 SEX: F [place], [place] [address] LOC: ROMAIN Saunders PHONE #: [phone] EXAM DATE: 05/04/2020 STATUS: ADM IN FAX #: [phone] RAD NO:Page 2 Signed ReportCBC W/AUTO DIFF [...] NORMAL REQUIRED (test code = PLTMR) WBC [id number] 04:57:00 Test Item Value Reference Range Interpretation [...] NORMAL A code = PLTMORPH) CBC W/AUTO [id number] 04:56:00 Test Item Value Reference Range Interpretation [...] NORMAL REQUIRED (test code = PLTMR) WBC [id number] 04:56:00 Test Item Value Reference Range Interpretation Comments SEGMENTED NEUTROPHILS (test code = SEG) % 56.5-79.4 LYMPHOCYTE (test code = LYMPH) % 20-40 CBC W/AUTO [id number] 04:56:00 Test Item Value Reference Range Interpretation [...] NORMAL REQUIRED (test code = PLTMR) WBC [id number] 04:56:00 Test Item Value Reference Range Interpretation Comments SEGMENTED NEUTROPHILS (test code = SEG) % 56.5-79.4 LYMPHOCYTE (test code = LYMPH) % 20-40 COMPREHENSIVE METABOLIC [id number] 04:39:00 Test Item Value Reference Range Interpretation [...] 46-116 N code = ALKP) CBC W/AUTO [id number] 19:13:00 Test Item Value Reference Range Interpretation Comments WHITE BLOOD CELL 5.9 K/mm3 6.6-12.1 L (test code = WBC) RED BLOOD CELL (test 2.60 M/mm3 3.45-5.01 L code = RBC) HEMOGLOBIN (test 6.9 g/dL 10.7-13.9 L RESULTS FERMIN IFIED BY code = HGB) REPEAT ANALYSIS RESULTS CALLED TO GIANNA VERDUGOREAD BACK & CONFIRME D? Y.BY F.LAB.[facility] 05/03. HEMATOCRIT (test 22.1 % 32.1-42.1 L [...] PLT) SUREKHA.READ BA CK & CONFIRMED? Y.BY F.LAB.[facility] 05/03 IMMATURE PLATELET 6.4 % 0.0-10.8 N [...] REQUIRED (test code PRESENT = PLTMR) LACTIC [id number] 19:05:00 Test Item Value Reference Range Interpretation Comments LACTIC ACID (test 4.5 MMOL/L 0.5-2.2 HH RESULTS CA LLED TO code = LACT) MARIBEL.READ BACK & CONFIRMED? YES. BY GlenAS04 04/17. COMPREHENSIVE METABOLIC [id number] 19:01:00 Test Item Value Reference Range Interpretation [...] 60 units/L 46-116 code = ALKP) PROTHROMBIN [id number] 19:01:00 Test Item Value Reference Range Interpretation Comments PROTHROMBIN TIME PATIENT (test code 13.3 secs 10.4-12.4 H = PTP) THROMBOPLASTIN TIME [id number] 19:01:00 Test Item Value Reference Range Interpretation Comments THROMBOPLASTIN TIME PARTIAL (test 20.6 secs 22-38 L code = PTT) [id number] 19:01:00 Test Item Value Reference Range Interpretation Comments FIBRINOGEN (test code = FIB) 141 mg/dL 309-518 L UA RFLX MICR CULT IF [id number] 12:47:00 Test Item Value Reference Range Interpretation [...] RiskForSepsis-no oth srcSpecimen Description: CLEAN CATCHUR HCG [id number] 12:47:00 Test Item Value Reference Range Interpretation [...] Description: CLEAN CATCHUA RFLX MICR CULT IF [id number] 12:36:00 Test Item Value Reference Range Interpretation [...] RiskForSepsis-no oth srcSpecimen Description: CLEAN CATCHUR HCG [id number] 12:36:00 Test Item Value Reference Range Interpretation [...] culture: RiskForSepsis-no oth srcSpecimen Description: CLEAN CATCHPROTHROMBIN [id number] 10:14:00 Test Item Value Reference Range Interpretation Comments PROTHROMBIN TIME PATIENT (test code 13.3 secs 10.4-12.4 H = PTP) THROMBOPLASTIN TIME [id number] 10:14:00 Test Item Value Reference Range Interpretation Comments THROMBOPLASTIN TIME PARTIAL (test 19.4 secs 22-38 L code = PTT) [id number] 10:14:00 Test Item Value Reference Range Interpretation Comments FIBRINOGEN (test code = FIB) 102 mg/dL 309-518 L COMPREHENSIVE METABOLIC [id number] 09:54:00 Test Item Value Reference Range Interpretation [...] units/L 46-116 N code = ALKP) HGB [id number] 06:49:00 Test Item Value Reference Range Interpretation Comments HEMOGLOBIN (test code = 4.5 g/dL 10.7-13.9 LL RESU LTS CALLED TO HGB) DAY.READ BACK & CONFIRMED? YES. BY F.LAB.IR1 05/0349.Results ve rified by repeat mindi sis HEMATOCRIT (test code = 16.2 % 32.1-42.1 LL RESU LTS CALLED TO HCT) DAY.READ BACK & CONFIRMED? YES. BY F.LAB.IR1 05/03.Results ve rified by repeat mindi sis"
[2022-03-22 01:28] LABS: Urine Blood Negative (Negative); Urine Glucose Negative (Negative); Urine Protein Negative (Negative); Urine Specific Gravity 1.025 (1.005-1.030)
[2022-03-22 01:30] LABS: Urine Specific Gravity/Preg 1.025 (1.005-1.030)
[2022-03-22] MEDS ORDERED: FAMOTIDINE 20 MG/2 ML VIAL IV ONE (01:31)
[2022-03-22] MEDS ORDERED: ONDANSETRON 4 MG/2 ML VIAL ONE (01:31)
[2022-03-22 01:38] LABS: Urine Mucus Slight /HPF (None Seen); Urine RBC <5 /HPF (None Seen)
[2022-03-22 02:07] LABS: Lymphocytes % 25.6 % (15.3-44.8); MCV 86.3 fL (80-100); MPV 9.2 fL (7.6-11.3); RBC Red Blood Cell Count 3.13 M/uL (3.86-4.86)
[2022-03-22 02:10] LABS: Protime INR 1.24
[2022-03-22 02:20] LABS: Albumin 3.5 g/dL (3.4-5.0); Bilirubin Total 0.4 mg/dL (0.2-1.0); Potassium 3.4 mmol/L (3.5-5.1); Protein, Total 7.5 g/dL (6.4-8.2)
[2022-03-22] MEDS ORDERED: FENTANYL CITR 100 MCG/2 ML ONE ×2 (02:47→03:35)
[2022-03-22] MEDS ORDERED: NA CHLORIDE 0.9% 1,000 ML ONE (03:35)
--- NOTE | 2022-03-22 04:15 | ER ---
Nurse's Notes [facility] Name: Bri Boyd Age: 36 yrs Sex: Female : 1985 Arrival Date: 03/21/2022 Time: 23:27 Bed 18 Private MD: Diagnosis: Nausea with vomiting, unspecified;Diarrhea, unspecified Presentation: 03/21 23:46 Chief complaint: Patient states: I am having a lot of pain in my upper abdomen. I have kd3 a bleeding disorder and my teeth are bleeding. The pain is unbearable. I do have some black tarry stool. I am vomiting and there is blood in it but i think its from my teeth. Coronavirus screen: Vaccine status: Patient reports being unvaccinated. Ebola Screen: No symptoms or risks identified at this time. Initial Sepsis Screen: Does the patient meet any 2 criteria? No. Patient's initial sepsis screen is negative. Does the patient have a suspected source of infection? No. Patient's initial sepsis screen is negative. Risk Assessment: Do you want to hurt yourself or someone else? Patient reports no desire to harm self or others. Onset of symptoms was March 21, 2022. 23:46 Method Of Arrival: Ambulatory kd3 23:46 Acuity: KARIE 3 kd3 Triage Assessment: 23:50 General: Appears uncomfortable, ill, Behavior is calm, cooperative. Pain: Complains of kd3 pain in epigastric area. Neuro: Level of Consciousness is awake, alert, obeys commands, Oriented to person, place, time, situation. Cardiovascular: Patient's skin is warm and dry. Respiratory: Airway is patent Trachea midline Respiratory effort is even, unlabored, Respiratory pattern is regular, symmetrical. GI: Abdomen is non-distended. 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 - Social history:: Smoking status: Patient denies any tobacco usage or history of. Screenin:52 Abuse screen: Denies threats or abuse. Denies injuries from another. Nutritional kd3 screening: No deficits noted. Tuberculosis screening: No symptoms or risk factors identified. Fall Risk None identified. Assessment: 03/22 02:02 General: Appears in no apparent distress. slender, Behavior is calm, cooperative, aa9 appropriate for age. Neuro: Level of Consciousness is awake, alert, obeys commands, Oriented to person, place, time, situation. Cardiovascular: Patient's skin is warm and dry. Respiratory: Airway is patent Respiratory effort is even, unlabored. GI: Abdomen is flat. GI: Reports lower abdominal pain, upper abdominal pain. : No signs and/or symptoms were reported regarding the genitourinary system. 04:00 Reassessment: Patient appears in no apparent distress at this time. Patient is alert, aa9 oriented x 3, equal unlabored respirations, skin warm/dry/pink. pt supine in bed eyes closed. 04:35 Reassessment: Patient appears in no apparent distress at this time. Patient is alert, aa9 oriented x 3, equal unlabored respirations, skin warm/dry/pink. pt understands discharge instructions, denies concerns. Vital Signs: 03/21 23:46 BP 106 / 67; Pulse 78; Resp 19; Temp 98.5(O); Pulse Ox 100% on R/A; Weight 74.84 kg; kd3 Height 5 ft. 6 in. (167.64 cm); Pain 8/10; 03/22 04:00 BP 97 / 53; Pulse 56; Resp 19 S; Pulse Ox 99% on R/A; aa9 04:35 BP 98 / 56; Pulse 62; Resp 19 S; Pulse Ox 96% on R/A; aa9 03/21 23:46 Body Mass Index 26.63 (74.84 kg, 167.64 cm) kd3 ED Course: 12 23:27 Patient arrived in ED. bp1 23:49 Gm Lopez PA is PHCP. cp 23:49 Holger Mariee MD is Attending Physician. cp 23:50 Triage completed. kd3 23:50 Arm band placed on right wrist. kd3 23:52 Patient has correct armband on for positive identification. kd3 23:52 No provider procedures requiring assistance completed. kd3 12/06 00:31 Asha Connell, RN is Primary Nurse. aa9 01:39 Missed attempt(s): 20 gauge in right antecubital area. Bleeding controlled, band aid jb5 applied, catheter tip intact. 01:45 Lipase Sent. aa9 01:45 CMP Sent. aa9 01:45 CBC with Diff Sent. aa9 01:45 Ptt, Activated Sent. jb5 01:45 PT-INR Sent. jb5 01:46 Missed attempt(s): 20 gauge in left antecubital area. aa9 02:00 Missed attempt(s): 22 gauge in right hand. Bleeding controlled, band aid applied, jb5 catheter tip intact. 03:11 CT Abd/Pelvis - IV Contrast Only In Process Unspecified. EDMS Administered Medications: 02:51 Drug: Pepcid (famotidine) 20 mg Route: IVP; Site: left antecubital; aa9 03:25 Follow up: Response: No adverse reaction aa9 02:51 Drug: Zofran (Ondansetron) 4 mg Route: IVP; Site: left antecubital; aa9 03:25 Follow up: Response: No adverse reaction aa9 02:51 Drug: fentaNYL (PF) 25 mcg Route: IVP; Site: left antecubital; aa9 03:25 Follow up: Response: No adverse reaction; RASS: Alert and Calm (0) aa9 03:43 Drug: NS 0.9% 1000 ml Route: IV; Rate: 1 bolus; Site: left antecubital; aa9 04:34 Follow up: Response: No adverse reaction; IV Status: Completed infusion aa9 03:43 Drug: fentaNYL (PF) 25 mcg Route: IVP; Site: left antecubital; aa9 04:34 Follow up: Response: No adverse reaction aa9 Outcome: 04:15 Discharge ordered by . selvin 04:36 Patient left the ED. aa9 Signatures: Dispatcher [employer] EDMS Gm Lopez PA PA cp Broussard, Jennifer jb5 Esthela Sadler Kyli RN RN kd3 Asha Connell, RN RN aa9 Corrections: (The following items were deleted from the chart) 02:01 02:00 Missed attempt(s): 22 gauge in right hand. Bleeding controlled, band aid applied, jb5 catheter tip intact. jb5
--- NOTE | 2022-03-22 04:15 | EDPHYS ---
Physician Documentation [facility] Name: Bri Boyd Age: 36 yrs Sex: Female : 1985 Arrival Date: 03/21/2022 Time: 23:27 Bed 18 Private MD: ED Physician Holger Mariee HPI: 03/22 01:30 This 36 yrs old Female presents to ER via Ambulatory with complaints of Abdominal Pain, cp Nausea, Vomiting. 01:30 The patient presents with abdominal pain in the upper abdomen. cp 01:30 Onset: The symptoms/episode began/occurred today. Associated signs and symptoms: cp Pertinent positives: nausea and vomiting, dark colored stool. Severity of pain: in the emergency department the pain is unchanged despite home interventions. 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 - Social history:: Smoking status: Patient denies any tobacco usage or history of. ROS: 03/22 01:35 Constitutional: Negative for body aches, chills, fever, poor PO intake. cp 01:35 Eyes: Negative for injury, pain, redness, and discharge. cp 01:35 ENT: Negative for drainage from ear(s), ear pain, sore throat, difficulty swallowing, difficulty handling secretions. 01:35 Cardiovascular: Negative for chest pain, edema, palpitations. 01:35 Respiratory: Negative for cough, shortness of breath, wheezing. 01:35 Abdomen/GI: Positive for abdominal pain, nausea, vomiting, diarrhea, dark colored stool, Negative for constipation. Exam: 01:40 Constitutional: The patient appears in no acute distress, alert, awake, cp non-diaphoretic, non-toxic, well developed, well nourished, uncomfortable. 01:40 Head/Face: Normocephalic, atraumatic. cp 01:40 Eyes: Periorbital structures: appear normal, Conjunctiva: normal, no exudate, no injection, Sclera: no appreciated abnormality, Lids and lashes: appear normal, bilaterally. 01:40 ENT: External ear(s): are unremarkable, Nose: is normal, Mouth: Lips: moist, Oral mucosa: pink and intact, moist, Posterior pharynx: Airway: no evidence of obstruction, patent, swelling, is not appreciated, erythema, is not appreciated, exudate, is not appreciated, Dental exam: abscess, is not appreciated, dental caries, that is moderate, diffusely, fractured teeth are noted, specifically the upper right second molar (#2), mild bleeding, Voice: is normal. 01:40 Chest/axilla: Inspection: normal. 01:40 Cardiovascular: Rate: normal, Rhythm: regular. 01:40 Respiratory: the patient does not display signs of respiratory distress, Respirations: normal, no use of accessory muscles, no retractions, labored breathing, is not present, Breath sounds: are clear throughout, no decreased breath sounds, no stridor, no wheezing. 01:40 Abdomen/GI: Inspection: scar(s), are noted in the midline, Bowel sounds: active, all quadrants, Palpation: soft, in all quadrants, moderate abdominal tenderness, in the right lower quadrant and left lower quadrant, rebound tenderness, is not appreciated, voluntary guarding, is elicited in the right lower quadrant and left lower quadrant. 01:40 Back: CVA tenderness, is absent. 03:54 : Rectal exam: Rectal tone: normal, Stool: brown, Guaiac testing: results were cp negative for occult blood. Vital Signs: 03/21 23:46 BP 106 / 67; Pulse 78; Resp 19; Temp 98.5(O); Pulse Ox 100% on R/A; Weight 74.84 kg; kd3 Height 5 ft. 6 in. (167.64 cm); Pain 8/10; 03/22 04:00 BP 97 / 53; Pulse 56; Resp 19 S; Pulse Ox 99% on R/A; aa9 04:35 BP 98 / 56; Pulse 62; Resp 19 S; Pulse Ox 96% on R/A; aa9 03/21 23:46 Body Mass Index 26.63 (74.84 kg, 167.64 cm) kd3 MDM: 00:11 Patient medically screened. cp 02:00 Differential diagnosis: appendicitis, bowel obstruction, cholecystitis, Cholelithiasis, cp gastritis, non-specific abd pain, pancreatitis, Peptic Ulcer Disease, Perf. Duodenal Ulcer, Perf. Gastric Ulcer, Ureterolithiasis, urinary tract infection. 04:14 Data reviewed: vital signs, nurses notes, lab test result(s), radiologic studies, CT cp scan. Counseling: I had a detailed discussion with the patient and/or guardian regarding: the historical points, exam findings, and any diagnostic results supporting the discharge/admit diagnosis, lab results, radiology results, to return to the emergency department if symptoms worsen or persist or if there are any questions or concerns that arise at home. Special discussion: Based on the patient's Hx, exam, and Dx evaluation, there is no indication for emergent surgery or inpatient Tx. It is understood by the patient/guardian that if the Sx's persist or worsen they need to return immediately for re-evaluation. ED course: VSS. Patient sleeping in exam room. No active vomiting observed. 03/22 00:29 Order name: CBC with Diff; Complete Time: 02:24 cp 03/22 02:24 Interpretation: Normal except: WBC 3.80; RBC 3.13; HGB 8.2; HCT 27.0; MCH 26.4; MCHC cp 30.5; PLT 126; RDW 18.0. 03/22 00:29 Order name: CMP; Complete Time: 02:24 cp 03/22 02:27 Interpretation: Normal except: K 3.4; AST 14; CA 8.4; GLOB 4.0; A/G 0.9. cp 03/22 00:29 Order name: Lipase; Complete Time: 02:24 cp 03/22 00:29 Order name: Urine Microscopic Only; Complete Time: 02:24 cp 03/22 00:29 Order name: PT-INR; Complete Time: 02:24 cp 03/22 00:29 Order name: Ptt, Activated; Complete Time: 02:24 cp 03/22 01:27 Order name: CT Abd/Pelvis - IV Contrast Only cp 03/22 01:28 Order name: Urine --Ancillary (enter results); Complete Time: 02:24 mw2 03/22 01:28 Order name: Urine Dipstick-Ancillary; Complete Time: 02:24 EDMS 03/22 02:27 Interpretation: Normal except: UKET Trace; UNIT Positive. cp 03/22 01:28 Order name: Urine Culture mw2 03/22 00:29 Order name: IV Saline Lock; Complete Time: 02:51 cp 03/22 00:29 Order name: Labs collected and sent; Complete Time: 01:45 cp 03/22 00:29 Order name: Urine Dipstick-Ancillary (obtain specimen); Complete Time: 01:22 cp 03/22 00:29 Order name: Urine Test (obtain specimen); Complete Time: 01:15 cp Administered Medications: 02:51 Drug: Pepcid (famotidine) 20 mg Route: IVP; Site: left antecubital; aa9 03:25 Follow up: Response: No adverse reaction aa9 02:51 Drug: Zofran (Ondansetron) 4 mg Route: IVP; Site: left antecubital; aa9 03:25 Follow up: Response: No adverse reaction aa9 02:51 Drug: fentaNYL (PF) 25 mcg Route: IVP; Site: left antecubital; aa9 03:25 Follow up: Response: No adverse reaction; RASS: Alert and Calm (0) aa9 03:43 Drug: NS 0.9% 1000 ml Route: IV; Rate: 1 bolus; Site: left antecubital; aa9 04:34 Follow up: Response: No adverse reaction; IV Status: Completed infusion aa9 03:43 Drug: fentaNYL (PF) 25 mcg Route: IVP; Site: left antecubital; aa9 04:34 Follow up: Response: No adverse reaction aa9 Disposition: 07:02 Co-signature as Attending Physician, Holger Mariee MD I agree with the assessment and rt plan of care. Disposition Summary: 03/22/22 04:15 Discharge Ordered Location: Home cp Problem: new cp Symptoms: have improved cp Condition: Stable cp Diagnosis - Nausea with vomiting, unspecified cp - Diarrhea, unspecified cp Followup: cp - With: Private Physician - When: 2 - 3 days - Reason: Recheck today's complaints Discharge Instructions: - Discharge Summary Sheet cp - Diarrhea, Adult cp - Nausea and Vomiting, Adult cp Forms: - Medication Reconciliation Form cp - Thank You Letter cp - Antibiotic Education cp - Prescription Opioid Use cp Prescriptions: - Zofran 4 mg Oral Tablet - take 1 tablet by ORAL route every 12 hours As needed; 20 tablet; Refills: 0, cp Product Selection Permitted - dicyclomine 20 mg Oral Tablet - take 1 tablet by ORAL route 4 times per day; 30 tablet; Refills: 0, Product cp Selection Permitted Signatures: Dispatcher [employer] EDGm Booth PA PA cp Doucette, Kyli, RN RN kd3 Asha Connell RN RN aa9 Holger Mariee MD MD rt Corrections: (The following items were deleted from the chart) 02:27 02:27 Normal except: K 3.4. cp cp
[2022-03-22 08:02] VITALS: TEMP 98.5
[2022-03-22 08:10] VITALS: BP 98/56; O2SAT 96
--- NOTE | 2022-03-22 16:47 | RAD REPORT ---
EXAM DESCRIPTION: Abdomen Pelvis W Contrast 03/22/2022 3:47 AM [employer]EL[employer] CLINICAL HISTORY: 36 years, Female, upper abdomen pain COMPARISON: None TECHNIQUE: Contrast-enhanced images of the abdomen and pelvis were performed utilizing 5 mm slice th ickness at 5 mm interval reconstruction from the lung bases to the ischial tuberosities after the adm inistration of IV contrast. In addition multiplanar reformats in the coronal and sagittal plane were obtained and reviewed. This exam was performed according to our departmental dose-optimization protocol, which includes auto mated exposure control, adjustment of the mA and/or kV according to patient size and/or use of iterat zahida reconstruction technique. FINDINGS: The lung bases demonstrate to be clear. The liver demonstrated presence of subcapsular hypodense lesion inferior aspect posterior segment rig ht hepatic lobe measuring 2.3 x 1.6 cm which does not fill the criteria for simple cyst perhaps corre sponding to a hemangioma. Otherwise the liver, pancreas, spleen and adrenal glands demonstrate to be unremarkable, no focal lesions are noted. There is a status post cholecystectomy. The kidneys demonstrate normal uptake of contrast media. No evidence for nephrolithiasis and/or hydro nephrosis. There is a mid/lower pole simple left renal cyst measuring 1 cm on axial image 34/104. No follow-up is recommended. Grossly the unopacified stomach, small bowel and large bowel demonstrate to be within normal limits. There is no evidence for bowel dilatation/or free air. The appendix was not visualized although n o significant inflammatory changes are seen within the right lower quadrant. The urinary bladder demonstrate to be unremarkable. The uterus is absent. There are no adnexal mass es. The aorta demonstrate to be unremarkable. There is no retroperitoneal lymphadenopathy. There is no ascites. The rest of the soft tissue and bony structures are within normal limits. IMPRESSION: No acute intra-abdominal process. 2.3 x 1.6 cm subcapsular hypodense lesion inferior aspect posterior segment right hepatic lobe which does not fill the criteria for simple cyst perhaps corresponding to a hemangioma. Status post cholecystectomy and hysterectomy. Electronically signed by: Maykel Pink MD 03/22/2022 3:51 AM [employer] Due to temporary technical issues with the PACS/Fluency reporting system, reports are being signed by the in house radiologists without review as a courtesy to insure prompt reporting. The interpreting radiologist is fully responsible for the content of the report.
== END 2022-03-22 04:36 | disposition home or self-care (01) ==
LOC: ER 23:23
DX: R11.2 Nausea with vomiting, unspecified (principal); R19.7 Diarrhea, unspecified
CPT/HCPCS: 36415; 74177; 80053; 81003; 81015; 81025; 83690; 85025; 85610; 85730; 87077; 87086; 87088; 87186; 96361; 96374; 96375; 99283; J2405; J3010; J7030; Q9967

== ENCOUNTER 2022-04-07 09:49 | Emergency (ER) | payer SELFPAY ==
--- OUTSIDE RECORDS SUMMARY | 2022-04-07 10:02 | XMS REPORT | Continuity of Care Document ---
:1985 Author Organization [facility] t Address [address] [place] [address] Care Team Providers Name Role Phone Rimma [...] Chanel Fabian MD Attending Clinician Doctor Unassigned, Roxana Attending Clinician Unavailable Jerod RINCON, Erma Monroe Attending Clinician Pranav SANDRA, Matias Attending Clinician MATIAS CRUZ Attending Clinician Unavailable RUTHY LOCO Attending Clinician Unavailable Nicole Chappell Attending Clinician Unavailable DEBRA LÓPEZ Attending Clinician Unavailable Bird Reis DO Attending Clinician Misael RINCON, Aracelis Attending Clinician Unavailable Samuel RINCON, Melinda Gillette Attending Clinician Unavailable Jeses Woods MD Attending Clinician Visit, [facility] Nurse Attending Clinician Unavailable Angela CNP, Allie Anne Attending Clinician [phone] Roger MEDICAL INTERN, Rimma Guadalupe Attending Clinician Won SANDRA, Gilson Wren Attending Clinician [phone] Rocío SANDRA, Alla Lion Attending Clinician Syd MEDICAL INTERN, Max Mayfield Attending Clinician Dl SANDRA, Ree Attending Clinician Ultrasound, [facility] Attending Clinician Unavailable Mila Ferguson Attending Clinician Risk, Moh-Nnkfn-Cb/High Attending Clinician Unavailable David, [facility] Resident Attending Clinician Unavailable Teresa SANDRA, Inga Chowdary Attending Clinician Chacorta Clark MD Attending Clinician 2, [facility] Room Attending Clinician Unavailable Ruba Chris MD Attending Clinician Faculty, [facility] Attending Clinician Unavailable Emy Marycruz TAMAYO Attending Clinician Lorrie Olmos MD Attending Clinician Kyle Cordero Attending Clinician Calvin Patel Attending Clinician 5, [facility] Room Attending Clinician Unavailable [...] Admitting Clinician Dl SANDRA, Ree Admitting Clinician Nickolsa SANDRA, Lorrie Quezada Admitting Clinician Payers Payer Name Policy Type Policy Number Effective Date Expiration Date Amisha navarro [facility] CASE[facility]OOK [id number] 2021 2022 00:00:00 00:00:00 MEDICAID PENDING PENDING 2021 00:00:00 [facility] [id number] 2018 CHOICE MEDICAID 00:00:00 Problems Condition Condition Condition Status Onset Resolution Last Treating Co mments Source Name Details Category Date Date Treatment Clinician Date Acute Acute Disease Active Univers blood loss blood loss 6-22 it y of anemia anemia 00:00: [place] [facility] Branch Menorrhagi Menorrhagi Disease Active U nivers a with a with 6-13 [place] irregular [place] Anemia Anemia Disease Active Univers 5-10 ity of 00:00: [place] [facility] Abnormal Abnormal Disease Active 2018-04 Unive rs TSH TSH 0-18 ity of 00:00: [place] [facility] Branch Fatty Fatty Disease Active 2018-04 Univers liver liver 0-18 ity of 00:00: [place] [address] Medical Branch Other Other Disease Active 2018-04 Univers fatigue fatigue 0-18 ity of 00:00: [place] [facility] Branch Severe Severe Disease Active [...] 2021-10-11 2021-10-11 0 /d University 00:00:00 00:00:00 [facility] Exposure to 2021-09-25 2021-10-05 Not sure [facility] SARS-CoV-2 (event) 00:00:00 09:00:00 [facility] Education 2021-08-24 2021-08-24 14 University 00:00:00 00:00:00 [facility] Tobacco Comment 2018-05-29 2018-05-29 1 pack per week; Uni versity of 00:00:00 00:00:00 quit 2015 [facility] Tobacco use and 2018-05-29 2018-05-29 Smokeless Universit y of exposure 00:00:00 00:00:00 tobacco non-user [facility] Cigarettes smoked 2018-05-29 2018-05-29 Univers ity of current (pack per 00:00:00 00:00:00 [facility] ) - Reported Branch Cigarette 2018-05-29 2018-05-29 University of pack-years 00:00:00 00:00:00 [facility] History of tobacco 2015-06-21 Cigarette Smoker University of use 00:00:00 [facility] Sex Ass[birth year] At [birth year] Universit y of 00:00:00 00:00:00 [facility] Smoking Status Start Date Stop Date Source Ex-smoker 2018-05-29 00:00:00 2018-05-29 00:00:00 Universi ty [facility] Medications Ordered Filled Start Stop Current Ordering [...] ity of mg (60 mg 00:58: Q48H, [place] iron)/5 mL 00 First dose Med ical solution (after Branch 300 mg last modificati on) on Mon10/12/21 at 1999, Until Discontinu ed, Routine polyethylen Yes [id number] 17g Take 1 Univers e glycol 6-29 Packet by ity of 3350 17 00:00: mouth [place] gram powder 00 daily. Medica l Branch polyethylen Yes [id number] 17g Take 1 Univers e glycol 6-29 Packet by ity of 3350 17 00:00: mouth [place] gram powder 00 daily. Medica l Branch polyethylen Yes [id number] 17g Take 1 Univers e glycol 6-29 Packet by ity of 3350 17 00:00: mouth [place] gram powder 00 daily. Medica l Branch polyethylen Yes [id number] 17g Take 1 Univers e glycol 6-29 Packet by ity of 3350 17 00:00: mouth [place] gram powder 00 daily. Medica l Branch polyethylen Yes [id number] 17g Take 1 Univers e glycol 6-29 Packet by ity of 3350 17 00:00: mouth [place] gram powder 00 daily. Medica l Branch polyethylen Yes [id number] 17g Take 1 Univers e glycol 6-29 Packet by ity of 3350 17 00:00: mouth [place] gram powder 00 daily. Medica l Branch polyethylen Yes [id number] 17g Take 1 Univers e glycol 6-29 [...] (Faculty): [facility] gabapentin 0 Yes [id number] 300mg Take 1 Univers 300 mg 6-28 [...] Indication s: acute pain methocarbam 0 Yes [id number] 500mg Take 1 Univers oL 500 mg 6-28 tablet by ity o f tablet 00:00: mouth 4 [place] 00 (four) Medical times Branch daily as needed for Pain (scale 4-6). phenazopyri 0 Yes [id number] 200mg Take 1 Univers dine 200 mg 6-28 tablet by ity of tablet 00:00: mouth 3 [place] 00 (three) Medical times Branch daily. sennosides- 2021-0 Yes [id number] 1{tbl} Take 1 Univers docusate 6-28 tablet by ity of sodium 00:00: mouth 2 [place] 8.6-50 mg 00 (two) Medical per tablet times Branch daily. simethicone 0 Yes [id number] 160mg Take 2 Univers 80 mg 6-28 tablets by ity of chewable 00:00: mouth [place] tablet 00 after Medical meals and Branch at bedtime. gabapentin 2022-0 Yes [id number] 300mg Take 1 Univers 300 mg 6-28 [...] Indication s: acute pain methocarbam 2022-0 Yes [id number] 500mg Take 1 Univers oL 500 mg 6-28 tablet by ity o f tablet 00:00: mouth 4 [place] 00 (four) Medical times Branch daily as needed for Pain (scale 4-6). phenazopyri 2021-0 Yes [id number] 200mg Take 1 Univers dine 200 mg 6-28 tablet by ity of tablet 00:00: mouth 3 [place] 00 (three) Medical times Branch daily. sennosides- 2021-0 Yes [id number] 1{tbl} Take 1 Univers docusate 6-28 tablet by ity of sodium 00:00: mouth 2 [place] 8.6-50 mg 00 (two) Medical per tablet times Branch daily. simethicone 2021-0 Yes [id number] 160mg Take 2 Univers 80 mg 6-28 tablets by ity of chewable 00:00: mouth [place] tablet 00 after Medical meals and Branch at bedtime. gabapentin 2021-0 Yes [id number] 300mg Take 1 Univers 300 mg 6-28 [...] Indication s: acute pain methocarbam 2022-0 Yes [id number] 500mg Take 1 Univers oL 500 mg 6-28 tablet by ity o f tablet 00:00: mouth 4 [place] 00 (four) Medical times Branch daily as needed for Pain (scale 4-6). phenazopyri 2022-0 Yes [id number] 200mg Take 1 Univers dine 200 mg 6-28 tablet by ity of tablet 00:00: mouth 3 [place] 00 (three) Medical times Branch daily. sennosides- 2021-0 Yes [id number] 1{tbl} Take 1 Univers docusate 6-28 tablet by ity of sodium 00:00: mouth 2 [place] 8.6-50 mg 00 (two) Medical per tablet times Branch daily. simethicone 2021-0 Yes [id number] 160mg Take 2 Univers 80 mg 6-28 tablets by ity of chewable 00:00: mouth [place] tablet 00 after Medical meals and Branch at bedtime. gabapentin 2021-0 Yes [id number] 300mg Take 1 Univers 300 mg 6-28 [...] Indication s: acute pain methocarbam 2021-0 Yes [id number] 500mg Take 1 Univers oL 500 mg 6-28 tablet by ity o f tablet 00:00: mouth 4 [place] 00 (four) Medical times Branch daily as needed for Pain (scale 4-6). phenazopyri 2021-0 Yes [id number] 200mg Take 1 Univers dine 200 mg 6-28 tablet by ity of tablet 00:00: mouth 3 [place] 00 (three) Medical times Branch daily. sennosides- 2021-0 Yes [id number] 1{tbl} Take 1 Univers docusate 6-28 tablet by ity of sodium 00:00: mouth 2 [place] 8.6-50 mg 00 (two) Medical per tablet times Branch daily. simethicone 2021-0 Yes [id number] 160mg Take 2 Univers 80 mg 6-28 tablets by ity of chewable 00:00: mouth [place] tablet 00 after Medical meals and Branch at bedtime. gabapentin 2021-0 Yes [id number] 300mg Take 1 Univers 300 mg 6-28 [...] Indication s: acute pain methocarbam 2022-0 Yes [id number] 500mg Take 1 Univers oL 500 mg 6-28 tablet by ity o f tablet 00:00: mouth 4 [place] 00 (four) Medical times Branch daily as needed for Pain (scale 4-6). phenazopyri 2022-0 Yes [id number] 200mg Take 1 Univers dine 200 mg 6-28 tablet by ity of tablet 00:00: mouth 3 [place] 00 (three) Medical times Branch daily. sennosides- 2021-0 Yes [id number] 1{tbl} Take 1 Univers docusate 6-28 tablet by ity of sodium 00:00: mouth 2 [place] 8.6-50 mg 00 (two) Medical per tablet times Branch daily. simethicone 2021-0 Yes [id number] 160mg Take 2 Univers 80 mg 6-28 tablets by ity of chewable 00:00: mouth [place] tablet 00 after Medical meals and Branch at bedtime. gabapentin 2021-0 Yes [id number] 300mg Take 1 Univers 300 mg 6-28 capsule by ity of capsule 00:00: mouth 3 00 (three) Medical times Branch daily. HYDROcodone 2-0 Yes [id number] 1{tbl} Take 1 Un rbayden -acetaminop 6-28 tablet by ity of hen 10-325 00:00: mouth [place] mg tablet 00 every 4 Medical (four) Branch hours as needed for Pain (scale 4-6) for up to 20 doses. Indication s: acute pain methocarbam 2022-0 Yes [id number] 500mg Take 1 Univers oL 500 mg 6-28 tablet by ity o f tablet 00:00: mouth 4 [place] 00 (four) Medical times Branch daily as needed for Pain (scale 4-6). phenazopyri 2022-0 Yes [id number] 200mg Take 1 Univers dine 200 mg 6-28 tablet by ity of tablet 00:00: mouth 3 00 (three) Medical times Branch daily. sennosides- 2022-0 Yes [id number] 1{tbl} Take 1 Univers docusate 6-28 tablet by ity of sodium 00:00: mouth 2 [place] 8.6-50 mg 00 (two) Medical per tablet times Branch daily. simethicone 0 Yes [id number] 160mg Take 2 Univers 80 mg 6-28 tablets by ity of chewable 00:00: mouth [place] tablet 00 after Medical meals and Branch at bedtime. gabapentin 0 Yes [id number] 300mg Take 1 Univers 300 mg 6-28 [...] Indication s: acute pain methocarbam 0 Yes [id number] 500mg Take 1 Univers oL 500 mg 6-28 tablet by ity o f tablet 00:00: mouth 4 [place] 00 (four) Medical times Branch daily as needed for Pain (scale 4-6). phenazopyri Yes [id number] 200mg Take 1 Univers dine 200 mg 6-28 tablet by ity of tablet 00:00: mouth 3 [place] 00 (three) Medical times Branch daily. sennosides- 0 Yes [id number] 1{tbl} Take 1 Univers docusate 6-28 tablet by ity of sodium 00:00: mouth 2 [place] 8.6-50 mg 00 (two) Medical per tablet times Branch daily. simethicone 0 Yes [id number] 160mg Take 2 Univers 80 mg 6-28 [...] E)) 00 First dose Medical chewable on [facility] Branch tablet 160 10/11/21 at mg 0915, Until Discontinu ed, Routine simethicone Yes 160mg 160 mg, Un brayden (GAS RELIEF 10-11 Oral, ity of (SIMETHICON 14:15: PC[place]HS, [place] E)) 00 First dose Medical chewable on [facility] Branch tablet 160 10/11/21 at mg 0915, Until Discontinu ed, Routine simethicone 2021- No 120mg 120 mg, U nivers (GAS RELIEF 10-11 Oral, ity of (SIMETHICON 14:00: 14:11 PC+HS, [place] as E)) 00 :54 First dose Medical chewable on [facility] Branch tablet 120 10/11/21 at mg 0900, [...] 800 mg ity of tablet 17:07: tablet [place] 42 TAKE 1 Medical TABLET BY Branch [...] 100 mg ity of capsule 17:07: capsule [place] 42 TAKE 1 Medical CAPSULE BY Branch [...] [place] mg 00 :59 Starting Medical on [facility] Branch 10/09/21 at 2000, Until [place] 10/10/21 at 1550, SUSI, Insomnia magnesium No 2g 2 g, IV Univ ers sulfate in 10-09 Piggyback, it y of water 2 22:15: 00:43 Administer [place] as gram/50 mL 00 :00 over 60 Medica l (4 %) Minutes, Branch infusion 2 ONCE, 1 g dose, On [facility] 10/09/21 at 1715, SUSI D5W-LR [...] 00 CONTINUOUS Medical , Starting Branch on [facility] 10/09/21 at 1615, Until Discontinu ed, Routine HYDROmorpho 2021- No IV Unive rs ne 10 mg/50 10-09 Infusion, it y of mL 0.9% 16:45: 15:55 50 mL, [place] NaCL 00 :40 CONTINUOUS Medical (DILAUDID) , 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 10/09/21 at 1145, Until 10/10/21 at 1055 acetaminoph 2021- No 650mg 650 mg, U nivers en 10-09 Oral, ity of (TYLENOL) 15:39: 15:55 Q6HPRN, [place] tablet 650 11 :40 Starting Medic al mg on Sat Branch 10/09/21 at 1039, Until 10/10/21 at 1055, Routine, Alternate with [place] for pain scale 4-6 HYDROmorphO 2021- No [...] 10-09 Oral, ity of sodium 14:00: DAILY, [place] (SENOKOT-S) 00 First dose Me dical 8.6-50 [...] 17 g 00 First dose Medical on [facility] Branch 10/09/21 at 0900, Until Discontinu ed, Routine sennosides- 2021- No 1{tbl} 1 tablet, Univers docusate 10-09 Oral, ity of sodium 14:00: 12:21 DAILY, [place] (SENOKOT-S) 00 :42 First dose Me dical [...] [place] iron)/5 mL 00 :59 on [facility] Medical solution 10/09/21 at Bran h 300 mg 0800, Until Discontinu ed, Routine D5W-LR IV No 1000mL at 75 Univ ers infusion 10-09- mL/hr, IV ity o f 1,000 mL 10:45: 21:03 Infusion, [place] as 00 :24 CONTINUOUS Medical , Starting Branch on [facility] 10/09/21 at 0545, Until 10/09/21 at 1603, [...] cuff. 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
Do ses of ondansetro n 16 mg and above need to be administer ed via IV piggyback. For Dose >=24mg ECG monitoring is advisable.
ondansetron 2-0 Yes 4mg 4 mg, Slow Univers (ZOFRAN 6-24 IV Push, ity of (PF)) 09:47: Q6HPRN, [place] injection 4 52 Nausea and Me dical mg Vomiting Branch (N/V), Starting on Mon10/08/21 at 0447
Do ses of ondansetro n 16 mg and above need to be administer ed via IV piggyback. For Dose >=24mg ECG monitoring is advisable.
ondansetron 2-0 Yes 4mg 4 mg, Slow Univers (ZOFRAN 6-24 IV Push, ity of (PF)) 09:47: Q6HPRN, [place] injection 4 52 Nausea and Me dical [...] ity of 0.9 % 07:00: on Mon [place] irrigation 10/08/21 at Med ical solution 0200, Branch Until Discontinu ed, Intra-op sodium 2021-0 Yes PRN, Univers chloride 10-08 Starting ity of 0.9 % 07:00: on Mon [place] irrigation 10/08/21 at Med ical solution 0200, Branch Until Discontinu ed, Intra-op sodium 2021-0 Yes PRN, Univers chloride 10-08 Starting ity of 0.9 % 07:00: on Mon [place] irrigation 10/08/21 at Med ical solution 0200, Branch Until Discontinu ed, Intra-op lactated 2021- No 500mL at 999 Unive rs ringers IV 10-08 mL/hr, 500 it y of infusion 06:45: 05:14 mL, [place] 500 mL 00 :00 Intravenou Medical s, [...] 01:00: First dose [place] mg 00 on [facility] 10/07/21 at [place] 1999, Until Discontinu ed, Routine gabapentin 0 Yes 300mg 300 mg, Uni vers (NEURONTIN) 6-24 Oral, TID, it y of capsule 300 01:00: First dose [place] mg 00 on [facility] Medical 10/07/21 at [place] 1999, Until Discontinu ed, Routine gabapentin 0 Yes 300mg 300 mg, Uni vers (NEURONTIN) 6-24 Oral, TID, it y of capsule 300 01:00: First dose [place] mg 00 on [facility] 10/07/21 at [place] 1999, Until Discontinu ed, Routine ibuprofen 2021-0 Yes ibuprofen Uni vers 800 mg 24 800 mg ity of tablet 00:39: tablet [place] [address] TAKE 1 Medical TABLET BY Branch MOUTH [...] 100 mg ity of capsule 00:39: capsule [place] 38 TAKE 1 Medical CAPSULE BY Branch [...] 4 doses, Medical First dose Branch on [facility] 10/07/21 at 1800, Last dose on Mon10/08/21 at 1200, Routine oxyCODONE 2021- No 10mg 10 mg, Unive rs immediate 10-07 Oral, ity of release 21:41: 09:45 Q6HPRN, [place] tablet 10 22 :12 Starting Medica l mg on [place] Branch 10/07/21 at 1641, Until Mon10/08/21 at 0445, Routine, Pain (scale 7-10)
F aculty member approving Restricted medication : LRFLORENCIO PARISH D5W-LR IV Yes 1000mL at 125 Univ [...] :00 dose, On Medi frank tablet 1 [facility] tablet 10/07/21 at 1615, Routine, PACU morpHINE [...] Push, ity of (PF)) 21:11: 09:45 Q4HPRN, [place] injection 4 23 :12 Starting Medi frank mg on [place] Branch 10/07/21 at 1611, Until 10/08/21 at 0445, Routine, Nausea and Vomiting (N/V) HYDROmorphO 2021- No .2mg 0.2 mg, Un brayden ne 10-07 Slow IV ity of (DILAUDID) 21:04: 22:20 Push, [place] injection 22 :58 Q5MIN PRN, Medi frank 0.2 mg 10 doses, Branch Starting on Jen[place] 10/07/21 at 1604, Until [place] 10/07/21 at 1720, Routine, Pain (scale 7-10), PACU
Us e approved by (Faculty): PACU USE -ANESTHESI A SERVICE-HY DROMORPHON E INJECTIONS FENTanyl PF 2021- No 25ug 25 mcg, Un brayden (SUBLIMAZE 10-07 Slow IV ity o f (PF)) 21:04: 22:20 Push, [place] injection 21 :58 Q5MIN PRN, Medi frank [...] of 0.9 % 20:50: 22:20 on Jeny [place] irrigation 00 :12 10/07/21 at Med ical solution 1550, Branch Until Jen[place] 10/07/21 at 1720, Intra-op lidocaine-e 2021- No PRN, Unive rs pinephrine 10-07 Starting ity of (XYLOCAINE 20:49: 22:20 on [place] WITH 00 :12 10/07/21 at Medical EPINEPHRINE 1549, Branch ) 1 Until [facility] %-1:100,000 10/07/21 at injection 1720, Routine, Intra-op bupivacaine 2021- No PRN, Unive rs (preserv 10-07 Starting ity of free) 20:48: 22:20 on Jeny [place] (SENSORCAIN 00 :12 10/07/21 at Ut dical E MPF) 0.25 1548, Branch % [...] 10-07 ity of (in units)~ 17:14: 21:01 [place] 13 :33 Medical Branch ceFAZolin 2021- No [...] it y of (iso-os) 15:55: 17:10 [facility] [place] (FLAGYL 50 :00 HOLDING Medical I.V.) RTU ONCE, 1 Branch IV infusion dose, 500 mg Starting on Jeny 10/07/21 at 1055, Until Jen[place] 10/07/21 at 1210, Administer over 75 Minutes, 100 mL
Reas on for Anti-Infec tive: Surgical Prophylaxi s
[place] rgical Prophylaxi s: [employer]
Duration of therapy: within 24 hours of [...] Immunizations Ordered Filled Immunization Date Status Comments [facility] e Immunization Name Name TDAP (ADACEL) 2018-10-15 Completed University of VACCINE 00:00:00 [facility] TDAP (ADACEL) 2018-10-15 Completed University of VACCINE 00:00:00 [facility] TDAP (ADACEL) 2018-10-15 Completed University of VACCINE 00:00:00 [facility] TDAP (ADACEL) 2018-10-15 Completed University of VACCINE 00:00:00 [facility] Branch TDAP (ADACEL) 2018-10-15 Completed University of VACCINE 00:00:00 [facility] Branch TDAP (ADACEL) 2018-10-15 Completed University of VACCINE 00:00:00 [facility] TDAP (ADACEL) 2018-10-15 Completed University of VACCINE 00:00:00 [facility] Branch TDAP (ADACEL) 2018-10-15 Completed University of VACCINE 00:00:00 [facility] Branch TDAP (ADACEL) 2018-10-15 Completed University of VACCINE 00:00:00 [facility] TDAP (ADACEL) 2018-10-15 Completed University of VACCINE 00:00:00 [facility] Vital Signs Vital Name Observation Time Observation Value Comments Source Systolic blood 2021-10-12 16:39:00 121 mm[Hg] Univer sity of pressure [facility] Diastolic blood 2021-10-12 16:39:00 67 mm[Hg] Unive rsity of pressure [facility] Heart rate 2021-10-12 16:39:00 59 /min [facility] Body temperature 2021-10-12 16:39:00 37.28 Radha Univ ersity of [place] [facility] Respiratory rate 2021-10-12 16:39:00 18 /min Univ ersity of [place] [facility] Oxygen saturation in 2021-10-12 16:39:00 97 /min University of Arterial blood by [facility] Pulse oximetry Branch Body height 2021-10-10 13:00:00 162.6 cm Universi ty of [place] [facility] Body weight 2021-10-10 13:00:00 83.7 kg Universi ty of [place] [facility] BMI 2021-10-10 13:00:00 31.66 kg/m2 Universi ty [facility] [place] [facility] Systolic blood 2021-10-12 16:39:00 121 mm[Hg] Univer sity of pressure [place] [facility] Diastolic blood 2021-10-12 16:39:00 67 mm[Hg] Unive rsity of pressure [place] [facility] Heart rate 2021-10-12 16:39:00 59 /min Universi ty [facility] [place] [facility] Body temperature 2021-10-12 16:39:00 37.28 Radha Univ ersity of [place] [facility] Respiratory rate 2021-10-12 16:39:00 18 /min Univ ersity of [place] [facility] Oxygen saturation in 2021-10-12 16:39:00 97 /min University of Arterial blood by [facility] Pulse oximetry Branch Body height 2021-10-10 13:00:00 162.6 cm Universi ty [facility] [place] [facility] Body weight 2021-10-10 13:00:00 83.7 kg Universi ty of [place] [facility] BMI 2021-10-10 13:00:00 31.66 kg/m2 Universi ty [facility] [place] [facility] Systolic blood 2021-10-08 06:29:00 100 mm[Hg] Univer sity of pressure [place] [facility] Diastolic blood 2021-10-08 06:29:00 60 mm[Hg] Unive rsity of pressure [place] [facility] Heart rate 2021-10-08 06:29:00 73 /min Universi ty [facility] [place] [facility] Body temperature 2021-10-08 06:29:00 37 Radha Univ ersity of [place] [facility] Respiratory rate 2021-10-08 06:29:00 22 /min Univ ersity of [place] [facility] Oxygen saturation in 2021-10-08 06:29:00 100 /min University of Arterial blood by [facility] Pulse oximetry Branch Body weight 2021-10-08 05:40:00 88 kg Universi ty [facility] [place] [facility] BMI 2021-10-08 05:40:00 31.66 kg/m2 Universi ty [facility] [place] [facility] Body height 2021-10-07 05:00:00 162.6 cm Universi ty of [place] [facility] Systolic blood 2021-10-07 21:15:00 118 mm[Hg] Univer sity of pressure [place] [facility] Diastolic blood 2021-10-07 21:15:00 64 mm[Hg] Unive rsity of pressure [place] [facility] Heart rate 2021-10-07 21:15:00 76 /min Universi ty [facility] [place] [facility] Respiratory rate 2021-10-07 21:15:00 15 /min Univ ersity of [place] [facility] Oxygen saturation in 2021-10-07 21:15:00 100 /min University of Arterial blood by [facility] Pulse oximetry Branch Body temperature 2021-10-07 21:00:00 36.94 Radha Univ ersity of [place] [facility] Body height 2021-10-07 05:00:00 162.6 cm [facility]i ty [facility] [place] [facility] Body weight 2021-10-06 20:20:00 75.4 kg [facility] [place] [facility] BMI 2021-10-06 20:20:00 33.30 kg/m2 Universi ty [facility] [place] [facility] Systolic blood 2021-10-07 21:15:00 118 mm[Hg] Univer sity of pressure [place] [facility] Diastolic blood 2021-10-07 21:15:00 64 mm[Hg] Unive rsity of pressure [place] [facility] Heart rate 2021-10-07 21:15:00 76 /min [facility]i ty [facility] [place] [facility] Respiratory rate 2021-10-07 21:15:00 15 /min Univ ersity of [place] [facility] Oxygen saturation in 2021-10-07 21:15:00 100 /min University of Arterial blood by [facility] Pulse oximetry Branch Body temperature 2021-10-07 21:00:00 36.94 Radha [facility] [place] [facility] Body height 2021-10-07 05:00:00 162.6 cm [facility] [place] [facility] Body weight 2021-10-06 20:20:00 75.4 kg [facility] BMI 2021-10-06 20:20:00 33.30 kg/m2 [facility] Procedures Procedure Date / Time Performing Clinician Source Performed CBC WITH DIFF 2021-10-12 11:42:[address] [facility] URINALYSIS 2021-10-11 15:27:[address] [facility] URINALYSIS 2021-10-11 15:27:00 Lona [facility] URINE CULTURE 2021-10-11 15:27:00 Lona [facility] CBC WITHOUT DIFF 2021-10-10 22:32:00 Yunier [facility] CBC WITHOUT DIFF 2021-10-10 22:32:00 Yunier [facility] PHOSPHORUS 2021-10-10 11:08:00 Yunier [facility] MAGNESIUM 2021-10-10 11:08:00 Yunier [facility] BASIC METABOLIC PANEL (NA, 2021-10-10 11:08:00 Nicholas Faye [facility] K, CL, CO2, GLUCOSE, BUN, Medica l Branch CREATININE, CA) CBC WITHOUT DIFF 2021-10-10 11:08:00 Yunier [facility] PHOSPHORUS 2021-10-10 11:08:00 Yunier [facility] MAGNESIUM 2021-10-10 11:08:00 Yunier [facility] BASIC METABOLIC PANEL (NA, 2021-10-10 11:08:00 Nicholas Faye [facility] K, CL, CO2, GLUCOSE, BUN, Medica l Branch CREATININE, CA) CBC WITHOUT DIFF 2021-10-10 11:08:00 Yunier [facility] CBC WITHOUT DIFF 2021-10-09 23:22:00 Yunier [facility] CBC WITHOUT DIFF 2021-10-09 23:22:00 Yunier [facility] CBC WITHOUT DIFF 2021-10-09 16:22:00 Yunier [facility] CBC WITHOUT DIFF 2021-10-09 16:22:00 Yunier [facility] TRANSFUSE PACKED RBC 2021-10-09 10:31:00 Alexandra [facility] TRANSFUSE PACKED RBC 2021-10-09 10:31:00 Alexandra [facility] PREPARE PACKED RBC 2021-10-09 10:06:26 Clara [facility] PREPARE PACKED RBC 2021-10-09 10:06:26 Monsekellie [facility] PHOSPHORUS 2021-10-09 08:35:00 [facility] MAGNESIUM 2021-10-09 08:35:00 [facility] BASIC METABOLIC PANEL (NA, 2021-10-09 08:35:00 Marcela [facility] [place] K, CL, CO2, GLUCOSE, BUN, Medica l Branch CREATININE, CA) CBC WITHOUT DIFF 2021-10-09 08:35:00 Bill [facility] PHOSPHORUS 2021-10-09 08:35:00 [place], [facility] MAGNESIUM 2021-10-09 08:35:00 [place], [facility] BASIC METABOLIC PANEL (NA, 2021-10-09 08:35:00 [facility] [place] [facility], CL, CO2, GLUCOSE, BUN, Medica l Branch CREATININE, CA) CBC WITHOUT DIFF 2021-10-09 08:35:00 Bill [facility] CBC WITHOUT DIFF 2021-10-09 01:26:00 Bill [facility] CBC WITHOUT DIFF 2021-10-09 01:26:00 Bill [facility] BASIC METABOLIC PANEL (NA, 2021-10-09 00:09:00 Marcela [facility] [place] [facility], CL, CO2, GLUCOSE, BUN, Medica l Branch CREATININE, CA) BASIC METABOLIC PANEL (NA, 2021-10-09 00:09:00 Marcela [facility] [place] K, CL, CO2, GLUCOSE, BUN, Medica l Branch CREATININE, CA) BASIC METABOLIC PANEL (NA, 2021-10-08 15:10:00 Yunier, Nicholas U [facility] K, CL, CO2, GLUCOSE, BUN, Medica l Branch CREATININE, CA) CBC WITHOUT DIFF 2021-10-08 15:10:00 [facility] BASIC [facility]OLIC PANEL (NA, 2021-10-08 15:10:00 Yunier, Nicholas U [facility] K, CL, CO2, GLUCOSE, BUN, Medica l Branch CREATININE, CA) CBC WITHOUT DIFF 2021-10-08 15:10:00 [facility] BASIC METABOLIC PANEL (NA, 2021-10-08 15:10:00 Yunier, Nicholas U [facility] K, CL, CO2, GLUCOSE, BUN, Medica l Branch CREATININE, CA) CBC WITHOUT DIFF 2021-10-08 15:10:00 [facility] AC PANEL 20 + LACTIC ACID 2021-10-08 10:24:00 Dalia Carson [facility] AC PANEL 20 + LACTIC ACID 2021-10-08 10:24:00 Dalia Carson [facility] AC PANEL 20 + LACTIC ACID 2021-10-08 10:24:00 Dalia Carson [facility] PHOSPHORUS 2021-10-08 10:20:00 Yamileth [facility] MAGNESIUM 2021-10-08 10:20:00 Yamileth [facility] HEPATIC FUNCTION PANEL 2021-10-08 10:20:00 Sandra Carsonsay [facility] ([id number]) (ALB,T.PRO,BILI Medical Branch T,BU/BC,ALT,AST,ALK PHOS) BASIC METABOLIC PANEL (NA, 2021-10-08 10:20:00 Dalia Carson [facility] K, CL, CO2, GLUCOSE, BUN, Medica l Branch CREATININE, CA) CBC WITH DIFF 2021-10-08 10:20:[address] [facility] GLYCOSYLATED HEMOGLOBIN 2021-10-08 10:20:00 Yamileth [facility] (A1C) [facility] PROTHROMBIN TIME / INR 2021-10-08 10:20:[address] [facility] ACTIVATED PARTIAL THRMPLAS 2021-10-08 10:20:00 Oxana Gupta [facility] FIBRINOGEN 2021-10-08 10:20:[address] [facility] PHOSPHORUS 2021-10-08 10:20:00 Yamileth [facility] MAGNESIUM 2021-10-08 10:20:00 Yamileth [facility] HEPATIC FUNCTION PANEL 2021-10-08 10:20:00 Yamileth [facility] ([id number]) (ALB,T.PRO,BILI Medical Branch T,BU/BC,ALT,AST,ALK PHOS) BASIC METABOLIC PANEL (NA, 2021-10-08 10:20:00 Yamileth [facility] K, CL, CO2, GLUCOSE, BUN, Medica l Branch CREATININE, CA) CBC WITH DIFF 2021-10-08 10:20:[address] [facility] GLYCOSYLATED HEMOGLOBIN 2021-10-08 10:20:00 [facility] PROTHROMBIN TIME / INR 2021-10-08 10:20:[address] [facility] ACTIVATED PARTIAL THRMPLAS 2021-10-08 10:20:00 Oxana Gupta [facility] FIBRINOGEN 2021-10-08 10:20:[address] [facility] PHOSPHORUS 2021-10-08 10:20:00 Yamileth [facility] MAGNESIUM 2021-10-08 10:20:00 Yamileth [facility] HEPATIC FUNCTION PANEL 2021-10-08 10:20:00 Yamileth [facility] ([id number]) (ALB,T.PRO,BILI Medical Branch T,BU/BC,ALT,AST,ALK PHOS) BASIC METABOLIC PANEL (NA, 2021-10-08 10:20:00 Yamileth [facility] K, CL, CO2, GLUCOSE, BUN, Medica l Branch CREATININE, CA) CBC WITH DIFF 2021-10-08 10:20:[address] [facility] GLYCOSYLATED HEMOGLOBIN 2021-10-08 10:20:00 Yamileth [facility] (A1C) [facility] PROTHROMBIN TIME / INR 2021-10-08 10:20:[address] [facility] ACTIVATED PARTIAL THRMPLAS 2021-10-08 10:20:00 Oxana Gupta [facility] FIBRINOGEN 2021-10-08 10:20:[address] [facility] PREPARE PLASMA 2021-10-08 09:48:16 [facility] 2021-10-08 09:48:16 [facility]AS[facility] 2021-10-08 09:48:16 Florencio Lr [facility] PREPARE PACKED RBC 2021-10-08 09:47:11 Jailene [facility] PREPARE PACKED RBC 2021-10-08 09:47:11 Jailene [facility] PREPARE PACKED RBC 2021-10-08 09:47:11 Jailene [facility] HB ECG ROUTINE & RHYTHM 2021-10-08 09:44:02 Yamileth [facility] HB ECG ROUTINE & RHYTHM 2021-10-08 09:44:02 Yamileth [facility] TRANSFUSE CRYOPRECIPITATE 2021-10-08 08:58:00 [facility] [place] [facility] TRANSFUSE CRYOPRECIPITATE 2021-10-08 08:58:00 [facility] [place] [facility] TRANSFUSE CRYOPRECIPITATE 2021-10-08 08:58:00 [facility] [place] [facility] ABG+COOX+NA+K+GLU+CA2+ 2021-10-08 08:55:00 [facility]G+COOX+NA+K+GLU+CA2+ 2021-10-08 08:55:00 Florencio Lr [facility] PROTHROMBIN TIME / INR 2021-10-08 08:50:00 Judi Merino [facility] PROTHROMBIN TIME / INR 2021-10-08 08:50:00 Judi Merino [facility] PROTHROMBIN TIME / INR 2021-10-08 08:50:00 Judi Merino [facility] TRANSFUSE PLASMA 2021-10-08 08:31:00 Michael Andrews [facility] TRANSFUSE PLASMA 2021-10-08 08:31:00 Michael Andrews [facility] TRANSFUSE PLASMA 2021-10-08 08:31:00 Michael Andrews [facility] TRANSFUSE PACKED RBC 2021-10-08 08:28:00 Michael Andrews [facility] TRANSFUSE PACKED RBC 2021-10-08 08:28:00 Michael Andrews [facility] TRANSFUSE PACKED RBC 2021-10-08 08:28:00 Michael Andrews [facility] ABG+COOX+NA+K+GLU+CA2+ 2021-10-08 08:01:00 Florencio Lr [facility] ABG+COOX+NA+K+GLU+CA2+ 2021-10-08 08:01:00 Florencio Lr [facility] TRANSFUSE PLASMA (IN ML) 2021-10-08 07:55:00 Michael Andrews [facility] TRANSFUSE PLASMA (IN ML) 2021-10-08 07:55:00 Michael Andrews [facility] TRANSFUSE PACKED RBC 2021-10-08 07:50:00 Michael Andrews [facility] TRANSFUSE PACKED RBC 2021-10-08 07:50:00 Michael Andrews [facility] CBC WITHOUT DIFF 2021-10-08 07:46:00 Judi Merino [facility] EXTRA TUBE SST 2021-10-08 07:46:00 Florencio Lrh [facility] CBC WITHOUT DIFF 2021-10-08 07:46:00 Jdui Merino [facility] EXTRA TUBE SST 2021-10-08 07:46:00 [facility] WITHOUT DIFF 2021-10-08 07:46:00 Judi Merino [facility] EXTRA TUBE SST 2021-10-08 07:46:00 [facility] ABG+COOX+NA+K+GLU+CA2+ 2021-10-08 07:43:00 Jailene Matias [facility] ABG+COOX+NA+K+GLU+CA2+ 2021-10-08 07:43:00 Jailene Matias [facility] TRANSFUSE PLASMA (IN ML) 2021-10-08 07:36:00 Michael Andrews [facility] TRANSFUSE PLASMA (IN ML) 2021-10-08 07:36:00 [facility] 2021-10-08 07:32:00 Judi Merino [facility] FIBRINOGEN 2021-10-08 07:32:00 Judi Merino [facility] FIBRINOGEN 2021-10-08 07:32:00 Judi Merino [facility] TRANSFUSE PACKED RBC 2021-10-08 07:30:00 Viviana Healy [facility] TRANSFUSE PLASMA (IN ML) 2021-10-08 07:30:00 Michael Andrews [facility] TRANSFUSE PACKED RBC 2021-10-08 07:30:00 Viviana Healy [facility] TRANSFUSE PLASMA (IN ML) 2021-10-08 07:30:00 Michael Andrews [facility] PREPARE CRYOPRECIPITATE 2021-10-08 07:24:24 Florencio Lr [facility] PREPARE CRYOPRECIPITATE 2021-10-08 07:24:24 Florencio Lr [facility] PREPARE CRYOPRECIPITATE 2021-10-08 07:24:24 Florencio Lr [facility] TRANSFUSE PACKED RBC 2021-10-08 07:22:00 Michael Andrews [facility] TRANSFUSE PACKED RBC 2021-10-08 07:22:00 [facility]ael [facility] TRANSFUSE PACKED RBC 2021-10-08 07:19:00 [facility] TRANSFUSE PACKED RBC 2021-10-08 07:19:00 Michael Andrews [facility] ABG+COOX+NA+K+GLU+CA2+ 2021-10-08 07:13:00 Addison Lruong [facility] ABG+COOX+NA+K+GLU+CA2+ 2021-10-08 07:13:00 Jailene Matias [facility] TRANSFUSE PLASMA (IN ML) 2021-10-08 07:08:00 Michael Andrews [facility] TRANSFUSE PLASMA (IN ML) 2021-10-08 07:08:00 Michael Andrews [facility] TRANSFUSE PLATELETS 2021-10-08 06:55:00 Pranav [facility] TRANSFUSE PLATELETS 2021-10-08 06:55:00 Pranav [facility] PREPARE PLATELETS 2021-10-08 06:44:36 Florencio Lr [facility] PREPARE PLATELETS 2021-10-08 06:44:36 [facility] 2021-10-08 06:44:36 Lr, Florencio [facility] EXPLORATORY LAPAROTOMY 2021-10-08 06:24:00 Wilber Jdui G U [facility] EVACUATION HEMATOMA PELVIC 2021-10-08 06:24:00 Wilber Judi Milvia [facility] EXPLORATORY LAPAROTOMY 2021-10-08 06:24:00 Connie Merinoah Milvia U [facility] EVACUATION HEMATOMA PELVIC 2021-10-08 06:24:00 Judi Merino [facility] FIBRINOGEN 2021-10-08 06:17:00 [facility] FIBRINOGEN 2021-10-08 06:17:00 [facility] FIBRINOGEN 2021-10-08 06:17:00 [facility] AC PANEL 21 + LACTIC ACID 2021-10-08 06:14:00 Elizabeth Mccray [facility] AC PANEL 21 + LACTIC ACID 2021-10-08 06:14:00 Shazia [facility] AC PANEL 21 + LACTIC ACID 2021-10-08 06:14:00 Elizabeth Mccray [facility] BASIC METABOLIC PANEL (NA, 2021-10-08 06:12:00 Yadira Mccray [facility] K, CL, CO2, GLUCOSE, BUN, Medica l Branch CREATININE, CA) CBC WITH DIFF 2021-10-08 06:12:00 Elizabeth Mccray [facility] PROTHROMBIN TIME / INR 2021-10-08 06:12:00 [facility] ACT[facility] PARTIAL THRMPLAS 2021-10-08 06:12:00 Yadira Mccray [facility] FIBRINOGEN 2021-10-08 06:12:00 Elizabeth Mccray [facility] BASIC METABOLIC PANEL (NA, 2021-10-08 06:12:00 Yadira Mccray [facility] K, CL, CO2, GLUCOSE, BUN, Medica l Branch CREATININE, CA) CBC WITH DIFF 2021-10-08 06:12:00 Elizabeth Mccray [facility] PROTHROMBIN TIME / INR 2021-10-08 06:12:00 [facility]IV[facility] PARTIAL THRMPLAS 2021-10-08 06:12:00 Yadira Mccray [facility] FIBRINOGEN 2021-10-08 06:12:00 Elizabeth Mccray [facility] BASIC METABOLIC PANEL (NA, 2021-10-08 06:12:00 Yadira Mccray [facility] K, CL, CO2, GLUCOSE, BUN, Medica l Branch CREATININE, CA) CBC WITH DIFF 2021-10-08 06:12:00 Elizabeth Mccray [facility] PROTHROMBIN TIME / INR 2021-10-08 06:12:00 [facility] ACTIV[facility] PARTIAL THRMPLAS 2021-10-08 06:12:00 Yadira Mccray [facility] FIBRINOGEN 2021-10-08 06:12:00 Elizabeth Mccray [facility] EXTERNAL PROVIDER RECORDS 2021-10-08 05:01:00 Doctor Unassigned, [facility] Name [facility] EXTERNAL PROVIDER RECORDS 2021-10-08 05:01:00 Doctor Unassigned, [facility] Name [facility] EXTERNAL PROVIDER RECORDS 2021-10-08 05:01:00 Doctor Unassigned, [facility] Name [facility] TRANSFUSE PACKED RBC 2021-10-08 04:45:00 LyViviana [facility] TRANSFUSE PACKED RBC 2021-10-08 04:45:00 LyViviana [facility] MAGNESIUM 2021-10-08 04:36:00 Ly [facility] BASIC METABOLIC PANEL (NA, 2021-10-08 04:36:00 Ly, Viviana U [facility] K, CL, CO2, GLUCOSE, BUN, Medica l Branch CREATININE, CA) CBC WITH DIFF 2021-10-08 04:36:00 Ly, [facility] MAGNESIUM 2021-10-08 04:36:00 Ly, [facility] BASIC METABOLIC PANEL (NA, 2021-10-08 04:36:00 Ly, [facility] K, CL, CO2, GLUCOSE, BUN, Medica l Branch CREATININE, CA) CBC WITH DIFF 2021-10-08 04:36:00 Ly, [facility] MAGNESIUM 2021-10-08 04:36:00 Ly, [facility] BASIC METABOLIC PANEL (NA, 2021-10-08 04:36:00 Ly, [facility] K, CL, CO2, GLUCOSE, BUN, Medica l Branch CREATININE, CA) CBC WITH DIFF 2021-10-08 04:36:00 Ly, [facility] PREPARE PACKED RBC 2021-10-08 04:27:22 Ly, [facility] PREPARE PACKED RBC 2021-10-08 04:27:22 Ly, [facility] PREPARE PACKED RBC 2021-10-08 04:27:22 Ly, [facility] POCT GLUCOSE (AUTOMATED) 2021-10-08 03:51:00 Florencio Lr [facility] POCT GLUCOSE (AUTOMATED) 2021-10-08 03:51:00 Florencio Lr [facility] POCT GLUCOSE (AUTOMATED) 2021-10-08 03:51:00 Florencio Lr [facility] CBC WITH DIFF 2021-10-07 23:55:00 Hilario [facility] CBC WITH DIFF 2021-10-07 23:55[facility] 2021-10-07 23:55:00 [facility]PARE [facility]ACKED RBC 2021-10-07 21:08:55 Naga Toshia [facility] PREPARE PACKED RBC 2021-10-07 21:08:55 Nielson, Toshia [facility] PREPARE PACKED RBC 2021-10-07 21:08:55 Naga Toshia [facility] SURGICAL PATHOLOGY EXAM 2021-10-07 20:37:00 Florencio Lr [facility] TRANSFUSE PACKED RBC 2021-10-07 17:19:00 [facility] TRANSFUSE PACKED RBC 2021-10-07 17:19:00 [facility] TRANSFUSE PACKED RBC 2021-10-07 17:19:00 [facility] INTUBATION 2021-10-07 16:49:00 Ronald [facility] LAPAROSCOPIC TOTAL 2021-10-07 16:12:00 [facility] ABDOMINAL HYSTERECTOMY [facility] LAPAROSCOPIC 2021-10-07 16:12:00 [facility] SALPINGO-OOPHORECTOMY Medical Br anch CYSTOSCOPY 2021-10-07 16:12:00 [facility] TOTAL 2021-10-07 16:12:00 Florencio Lr [facility] ABDOMINAL HYSTERECTOMY [facility] [place] LAPAROSCOPIC 2021-10-07 16:12:00 [facility] SALPINGO-OOPHORECTOMY Medical Br anch CYSTOSCOPY 2021-10-07 16:12:00 [facility] COMP. METABOLIC PANEL 2021-10-07 11:41:00 Alison Zamorano [facility] ([id number]) [facility] COMP. METABOLIC PANEL 2021-10-07 11:41:00 Alison Zamorano [facility] ([id number]) [facility] COMP. METABOLIC PANEL 2021-10-07 11:41:00 Alison Zamorano [facility] ([id number]) [facility] CBC WITH DIFF 2021-10-07 00:30:00 Alison Zamorano [place] [facility] PROTHROMBIN TIME / INR 2021-10-07 00:30:00 Alison Zamorano [facility] ACTIVATED PARTIAL THRMPLAS 2021-10-07 00:30:00 [facility] 2021-10-07 00:30:[address] [facility] CBC WITH DIFF 2021-10-07 00:30:[address] [facility] PROTHROMBIN TIME / INR 2021-10-07 00:30:00 Alison Zamorano [facility] ACTIVATED PARTIAL THRMPLAS 2021-10-07 00:30:00 [facility] 2021-10-07 00:30:[address] [facility] CBC WITH DIFF 2021-10-07 00:30:[address] [facility] PROTHROMBIN TIME / INR 2021-10-07 00:30:00 Alison Zamorano [facility] ACTIVATED PARTIAL THRMPLAS 2021-10-07 00:30:00 [facility] 2021-10-07 00:30:[address] [facility] HB ABO GROUPING 2021-10-06 21:00:00 [facility] HB ABO GROUPING 2021-10-06 21:00:00 [facility] HB ABO GROUPING 2021-10-06 21:00:00 Naga [facility] POCT TEST 2021-10-06 20:12:00 Eli Jack [facility] POCT TEST 2021-10-06 20:12:00 Eli Jack [facility] POCT TEST 2021-10-06 20:12:00 Patricia Jackhykellie Silva [facility] COVID-19 (ID NOW RAPID 2021-10-06 20:09:00 Florencio Lr [facility] TESTING Medical Branch LAB ONLY COVID 2021-10-06 20:09:00 Florencio Lrh [facility] COVID-19 (ID NOW RAPID 2021-10-06 20:09:00 [facility] LAB ONLY COVID 2021-10-06 20:09:00 Florencio Lr [facility] COVID-19 (ID NOW RAPID 2021-10-06 20:09:00 [facility] LAB ONLY COVID 2021-10-06 20:09:00 Florencio Lr [facility] HOSPITAL ADMISSION 2021-10-06 05:01:00 Doctor Unassigned, [facility] Roxana Medical Branch Encounters Start End Encounter Admission Attending Care Care Encounter Source Date/Time Date/Time Type Type Clinicians Facility Department ID 2021-10-06 Inpatient R [facility] SUPERVISOR CHASSIS ASSEMBLY [id number] [facility] 14:42:00 [facility] 2021-10-06 Hospital Lr, [id number] Univers 14:42:00 Encounter [facility] [id number] [facility] [id number] [id number] [facility] [place] 2021-10-06 Inpatient R [facility] SUPERVISOR CHASSIS ASSEMBLY [id number] Univers 14:42:00 [facility] 2020-05-03 Inpatient UR Maria G, [facility] [id number] [facility] 03:53:00 [place] [address] [facility] 2022-02-17 2022-02-17 Patient Inga Fontenot [id number] Univers 00:00:00 00:00:00 Outreach E ARCE [id number] [id number] [address] 2021-11-03 2021-11-03 Telephone LITTLE Loco [id number] Univers 00:00:00 [facility]:00:[facility] [id number] i [id number] [id number] [facility] 113 Branch 2021-10-29 2021-10-29 Outpatient [facility] [id number] Univers 14:15:00 14:15:00 ity of [facility] 2021-10-21 2021-10-21 [facility] [id number] Univers 14:45:00 14:45:00 NICOLE ity of [facility] 2021-10-21 2021-10-21 Telephone Pgy3 UNIVERSIT [id number] Univers 00:00:00 00:00:[address] [facility] [id number] i [id number] [id number] [facility] 113 Branch 2021-10-13 2021-10-13 Transition MARY Richard [id number] Univers 00:00:00 00:00:00 of Care Sandi ARCE [id number] [id number] [id number] [facility] 403 Branch 2021-10-13 2021-10-13 Transition MARY Richard [id number] Univers 00:00:00 00:00:00 of Care Sandi ARCE [id number] [id number] [id number] [facility] 403 Branch 2021-10-06 2021-10-12 Inpatient R ALDAIR, [facility] SUPERVISOR CHASSIS ASSEMBLY [id number] Univers 14:42:00 14:14:00 NGOC ity of [facility] 2021-10-06 2021-10-12 Hospital Florencio Lr [id number]. [id number] Univers 14:42:00 14:14:00 Encounter Ngoc Quinteros [id number] ity of HOSPITAL 4.2.7.2.686 Eladio as [id number] [facility] 091 Branch 2021-10-08 2021-10-08 Surgery OC Merino 1.2.840.114 [id number] Univers 01:30:00 03:41:00 Judi Steel [place] [id number] it y of [facility] 4.2.7.2.686 Eladio as [id number] [facility] 103 Branch 2021-10-07 2021-10-07 Surgery Lr, 1.2.840.1 [id number] Univers 11:40:00 16:17:00 Matias 76366.1.1 ity of [facility] 3.104.2.7 [place] .[id number] Medica l .8 Branch 2021-10-07 2021-10-07 Surgery LrDYLAN parishNIE [id number] Univers 11:40:00 16:17:00 Matias [place] [id number] it y of [facility] [id number] Eladio as [id number] [facility] 103 Branch 2021-10-07 2021-10-07 Anesthesia Johanny Martel 1.2.840.114 [id number] Univers 11:39:00 15:55:00 Event Chanel Fabian [id number] ity of [facility] [id number] Eladio as [id number] [facility] 103 [place] 2021-10-06 2021-10-06 Orders Doctor JARAD 1.2.840.114 [id number] Univers 00:00:00 00:00:00 Only Unassigned, [place] [id number] ity of [place] [facility] 4.2.7.2.686 Eladio as [id number] [facility] 009 Branch 2021-10-05 2021-10-05 Travel 1.2.840.1 1.2.440.979 [id number] Univers 00:00:00 00:00:00 10159.1.1 350.1.13.10 ity of 3.104.2.7 4.[place].3.698 [place] .3.154514 084.8 Medica l .8 [place] 2021-10-04 2021-10-04 Transition [place], 1.2.840.9 [id number] Univers 00:00:00 00:00:00 of Care Erma Mnoroe 56818.1.1 ity of 3.104.2.7 [place] .3.695415 Medica l .8 [place] 2021-10-04 2021-10-04 Patient Cruz, 1.2.840.3 [id number] Univers 00:00:00 00:00:00 Secure Msg Matias 48955.1.1 i ty of 3.104.2.7 [place] .3.556840 Medica l .8 [place] 2021-09-27 2021-10-02 Inpatient X CRUZ, [facility] SUPERVISOR CHASSIS ASSEMBLY [id number] Univers 20:32:00 05:30:00 MATIAS ity [facility] 2021-09-27 2021-10-02 Inpatient X CRUZ, [facility] SUPERVISOR CHASSIS ASSEMBLY [id number] Univers 20:32:00 05:30:00 MATIAS ity [facility] 2021-09-27 2021-10-02 Hospital Cruz, 1.2.840.5 [id number] Univers 20:32:00 05:30:00 Encounter Matias 64732.1.1 it y of 3.104.2.7 [place] .3.823998 Medica l .8 [place] 2021-09-27 2021-09-27 Travel 1.2.840.1 1.2.445.808 [id number] [id number] Univers 00:00:00 00:00:00 34968.1.1 350.1.13.10 ity of 3.104.2.7 4.2.7.3.698 [place] .3.957905 084.8 Medica l .8 [place] 2021-09-14 2021-09-14 Outpatient Chaparro [facility] [id number] Univers 14:00:00 14:00:00 [facility] ity [facility] 2021-09-14 2021-09-14 Outpatient Chaparro [facility] [id number] Univers 14:00:00 14:00:00 [facility] ity [facility] 2021-09-14 2021-09-14 Patient Doctor 1.2.840.9 [id number] Univers 00:00:00 00:00:00 Secure Msg Unassigned, 75963.1.1 ity of [place] 3.104.2.7 [place] .3.663295 Medica l .8 [place] 2021-09-04 2021-09-04 Orders Doctor 1.2.840.0 [id number] Univers 00:00:00 00:00:00 Only Unassigned, 61518.1.1 ity of [place] 3.104.2.7 [place] .3.574691 Medica l .8 [place] 2021-08-27 2021-08-27 Transition Richard, 1.2.840.1 [id number] Univers 00:00:00 00:00:00 of Care Sandi 08436.1.1 i ty of 3.104.2.7 [place] .3.093538 Medica l .8 [place] 2021-08-24 2021-08-26 Inpatient X [facility] SUPERVISOR CHASSIS ASSEMBLY [id number] Univers 03:17:00 15:30:00 MATIAS ity of [facility] 2021-08-24 2021-08-26 Inpatient X [facility] SUPERVISOR CHASSIS ASSEMBLY [id number] Univers 03:17:00 15:30:00 MATIAS ity of [facility] 2021-08-24 2021-08-26 [facility], 1.2.840.0 [id number] Univers 03:17:00 15:30:00 Encounter Matias 65070.1.1 it y of [place] 3.104.2.7 [place] .3.550226 Medica l .8 [place] 2021-08-24 2021-08-24 Travel 1.2.840.1 1.2.387.761 [id number] 2125 Univers 00:00:00 00:00:00 95041.1.1 350.1.13.10 ity of 3.104.2.7 4.2.7.3.698 [place] .3.853519 084.8 Medica l .8 [place] 2021-05-04 2021-05-05 Emergency EM [place], [facility] [id number] [facility] 01:14:00 14:01:00 Nicole [facility] 2021-03-02 2021-03-02 Emergency X [facility] ERT [id number] Univers 22:11:00 22:41:00 ity [facility] 2020-08-25 2020-08-26 [facility] 7503 Memoria 02:37:00 18:00:00 DEBRA Riossara Oleary [facility] l 2020-07-06 2020-07-06 Patient ChatoRUST 1.2.840.114 [id number] Univers 00:00:00 00:00:00 Outreach Bird PRIMARY 350.1.13.10 i ty of [facility] 4.2.7.2.686 [place] [id number] Ut dical 388 [place] 2019-07-13 2019-07-13 Nurse JARAD Douglas 1.2.840.114 [id number] 00:00:00 00:00:00 Triage Aracelis IS[place] 350.1.13.10 HOSPITAL 4.2.7.2.686 [id number] 019 2019-07-13 2019-07-13 JARAD Santamaria 1.2.840.114 [id number] 00:00:00 00:00:00 Triage Melinda Leta WOOD 350.1.13.10 [facility] 4.2.7.2.686 [id number] 019 2019-07-13 2019-07-13 Nurse JARAD Douglas 1.2.840.114 [id number] Univers 00:00:00 00:00:00 Triage Aracelis ISRAEL 350.1.13.10 it y of [facility] 4.2.7.2.686 [place] as [id number] [address] 2019-07-13 2019-07-13 JARAD Santamaria 1.2.840.114 [id number] Univers 00:00:00 00:00:00 Triage Melinda Leta WOOD 350.1.13.10 i ty of [facility] 4.2.7.2.686 [place] as [id number] [address] 2018-12-31 2019-01-01 [facility] 1.2.704.030 [id number] 21:55:55 14:19:00 Encounter Jesse WOOD 350.1.13.10 [place] 4.2.7.2.686 [id number] [facility] 2018-12-31 2019-01-01 [facility] 1.2.861.535 [id number] [facility] 21:55:55 14:19:00 Encounter Jesse WOOD 350.1.13.10 ity of [facility] 4.2.7.2.[place] [id number] [address] 2018-12-31 2018-12-31 Nurse Visit, [facility] 1.2.840.114 [id number] 15:10:27 15:53:28 Visit Jerel MANA[facility] HUM[employer]ITAL 350.1.13.[address] [facility] 4.2.7.2.686 MATERNAL [id number] & CHILD [facility] 2018-12-31 2018-12-31 Nurse Visit, Jerel Nurse [facility] 1.2 .840.114 [id number] [facility] 15:10:27 15:53:28 Visit Allie Miller MANAGER HUM[employer]ITAL 350.1.13. [address] [facility] 4.2.7.2.686 Eladio as MATERNAL [id number] Med ical & CHILD [address] [place] [address] 2018-12-31 2018-12-31 Telephone AMANDA Duran 1.2.840.114 [id number] 00:00:00 00:00:00 Rimma Guadalupe MANAGER [facility] [employer] 350.1.13.10 [facility] 4.2.7.2.686 MATERNAL [id number] & CHILD [facility] 2018-12-31 2018-12-31 Telephone JARAD Upton 1.2.840.114 [id number] 00:00:00 00:00:00 Gilson WOOD 350.1.13.10 [facility] 4.2.7.2.686 [id number] 013 2018-12-31 2018-12-31 Telephone Roger [facility] 1.2.840.114 [id number] [facility] 00:00:00 00:00:00 Rimma N [employer]ITAL 350.1.13.[address] [facility] 4.2.7.2.686 Eladio as MATERNAL [id number] [facility] ical & CHILD [address] [place] [address] 2018-12-31 2018-12-31 Telephone WonJARAD aranda 1.2.840.114 [id number] Univers 00:00:00 00:00:00 Gilson WOOD 350.1.13.10 i ty [facility] 4.2.7.2.686 Eladio as [id number] [facility] 013 [place] 2018-12-28 2018-12-29 Emergency [facility] 1.2.275.082 [id number] 19:29:15 00:59:00 Alla [place] 350.1.13.10 [place] 4.2.7.2.686 Harlan [id number] [facility] 2018-12-28 2018-12-29 Emergency [facility], [facility] 1.2.717.742 [id number] [facility] 19:29:15 00:59:00 Alla Lopez 350.1.13.10 ity [facility] 4.2.7.2.686 [facility] [id number] [address] 2018-12-28 2018-12-28 Nurse Visit, [facility] 1.2.840.114 [id number] 12:55:55 13:47:08 Visit Jerel [employer] [employer]ITAL 350.1.13.[address] [facility] 4.2.7.2.686 MATERNAL [id number] & CHILD [address] [place] [address] 2018-12-28 2018-12-28 [facility] 1.2 .840.114 [id number] [facility] 12:55:55 13:47:08 Visit Max Velarde MANA[employer] H[employer]ITAL 350.1.13.[address] [facility] 4.2.7.2.686 Eladio as MATERNAL [id number] [facility] ical & CHILD [address] [place] [address] 2018-12-20 2018-12-24 Hospital JARAD Lizama 1.2.840.114 [id number] 18:42:00 13:40:00 Encounter Ree WOOD 350.1.13.10 [place] 4.2.7.2.686 [id number] 070 2018-12-20 2018-12-24 [facility] JARAD Lizama 1.2.840.114 [id number] Univers 18:42:00 13:40:00 Encounter Ree WOOD 350.1.13.10 ity of [place].7.2.686 [place] [id number] [address] 2018-12-20 2018-12-20 Architecture Technician Ultrasound, Ang-Mfm [facility] 1.2 .840.114 [id number] [facility] 11:12:37 11:42:37 Visit Mial Ferguson [employer]NA[employer]ITAL 350.1.13.10 ity of Jesse Woods [facility] 4.2.7.2.686 [place] MATERNAL [id number] [facility] ical & CHILD [facility] 2018-12-20 2018-12-20 Architecture Technician Ultrasound, [facility] 1.2.840.114 [id number] 11:12:37 11:42:37 Visit Ang-Mfm [facility] [employer] 350.1.13.10 REGIONAL 4.2.7.2.686 MATERNAL [id number] & CHILD [facility] 2018-12-20 2018-12-20 Routine Risk, Umt-Ltcsv-Zu/High [facility] 1. 2.840.114 [id number] Univers 10:20:16 11:05:03 Mila Ferguson MANA[employer]ITAL 350.1.13.10 ity of Visit REGIONAL 4.2.7.2.686 [place]io as MATERNAL [id number] [facility] ical & CHILD [facility] 2018-12-20 2018-12-20 Routine Risk, [facility] 1.2.840.114 [id number] 10:20:16 11:05:03 Ang-Rmchp-N [employer] H[employer]ITAL 350.1.13.10 Visit p/High REGIONAL 4.2.7.2.686 MATERNAL [id number] & CHILD [facility] 2018-12-18 2018-12-18 Routine Velarde, [facility] 1.2.840.114 [id number] Univers 12:50:29 14:00:55 Roshunda R MANAGER HUMAN CAPITAL 350.1.13.10 ity of Visit REGIONAL 4.2.7.2.686 Eladio as MATERNAL [id number] Med ical & CHILD [facility] 2018-12-18 2018-12-18 Routine Syd [facility] 1.2.840.114 [id number] 12:50:29 14:00:55 Marynda R MANAGER HUMAN CAPITAL 350.1.13.10 Visit REGIONAL 4.2.7.2.686 MATERNAL [id number] & CHILD [facility] 2018-12-13 2018-12-13 Routine [facility] Resident UNIVERSIT 1.2.8 40.114 [id number] Univers 13:28:19 14:24:11 Inga Moore Y HEALTH 350.1. 13.10 ity of [facility]z [facility] 4.2.7.2.686 [place] Clark Chacorta Abrams [id number] [address] 2018-12-13 2018-12-13 Routine [facility] UNIVERSIT 1.2.840.114 [id number] 13:28:19 14:24:11 Resident Y HEALTH 350.1.13.[address] [facility] 4.2.7.2.686 [id number] 113 2018-12-13 2018-12-13 Architecture Technician 2, [facility] UNIVERSIT 1 .2.840.114 [id number] [facility] 12:48:28 13:23:20 Visit Inga Moore HEALTH 350.1.1 3.10 ity of [facility] 4.2.7.2.686 [place] [id number] [address] 2018-12-13 2018-12-13 Architecture Technician 2, [facility] UNIVERSIT 1.2.840.11 [id number] 12:48:28 13:23:20 Visit Us Room Y HEALTH 350.1.13.10 CLINICS 4.2.7.2.686 [id number] [facility] 2018-12-13 2018-12-13 Orders Doctor ABRAHAM 1.2.840.114 [id number] Univers 00:00:00 00:00:00 Only Unassigned, [place] 350.1.13.10 ity of [place] [facility] 4.2.7.2.686 Eladio as [id number] [facility] 009 [place] 2018-12-13 2018-12-13 Orders Doctor JARAD 1.2.840.114 [id number] 00:00:00 00:00:00 Only Unassigned, [place] 350.1.13.10 [place] [facility] 4.2.7.2.686 [id number] 009 2018-12-11 2018-12-11 Case JARAD Chris 1.2.840.114 [id number] Univers 00:00:00 00:00:00 Management Ruba ISRAEL 350.1.13.10 ity of HOSPITAL 4.2.7.2.686 [place] as [id number] [facility] 013 [place] 2018-12-11 2018-12-11 Case JARAD Chris 1.2.840.114 [id number] 00:00:00 00:00:00 Management Ruba IS[place] 350.1.13.10 HOSPITAL 4.2.7.2.686 [id number] 2018-12-10 2018-12-10 Routine Faculty, Ad [facility] 1.2 .840.114 [id number] [facility] 10:35:35 11:46:44 Jesse Woods MANAGER HUM[employer] CAPITAL 350.1.13.[address] [facility] 4.2.7.2.686 Eladio as MATERNAL [id number] Med ical & CHILD [address] [place] [address] 2018-12-10 2018-12-10 Routine Faculty, [facility] 1.2.840.114 [id number] 10:35:35 11:46:44 [facility] MANAGER HUMAN CAPITAL 350.1.13.10 Visit [facility] 4.2.7.2.686 MATERNAL [id number] & CHILD [address] [place] [address] 2018-12-06 2018-12-06 Architecture Technician Ultrasound, [facility] 1.2 .840.114 [id number] [facility] 11:40:06 12:10:06 Visit Marycruz Quevedo MANAGER HUMAN CAPITAL 350.1.13.10 ity of REGIONAL 4.2.7.2.686 Eladio as MATERNAL [id number] Med ical & CHILD [facility] 2018-12-06 2018-12-06 Architecture Technician Ultrasound, [facility] 1.2.840.114 [id number] 11:40:06 12:10:06 Visit Evan MANAGER HUMAN CAPITAL 350.1.13.10 REGIONAL 4.2.7.2.686 MATERNAL [id number] & CHILD [facility] 2018-12-06 2018-12-06 Routine Risk, Uhr-Yvhcl-Hy/High [facility] 1. 2.840.114 [id number] [facility] 10:02:15 11:39:46 QuevedoMarycruz kinsey Bubba MANAGER HUMAN CAPITAL 350.1.13.10 ity of Visit REGIONAL 4.2.7.2.686 Eladio as MATERNAL [id number] [facility] ical & CHILD [facility] 2018-12-06 2018-12-06 Routine Risk, [facility] 1.2.840.114 [id number] 10:02:15 11:39:46 Liliap-N MANAGER HUMAN CAPITAL 350.1.13.10 Visit p/High REGIONAL 4.2.7.2.686 MATERNAL [id number] & CHILD [facility] 2018-12-03 2018-12-03 [facility] Lorrie Olmos [facility] 1.2.840.114 [id number] [facility] 13:57:00 16:45:00 Encounter Cam Coram 350.1.13.10 ity of [place] 4.2.7.2.686 [place] [id number] [address] 2018-12-03 2018-12-03 [facility] Lorrie Olmos [facility] 1.2.840.114 [id number] 13:57:00 16:45:00 Encounter Cam Coram 350.1.13.10 [place] 4.2.7.2.686 [place] [id number] [facility] 2018-12-03 2018-12-03 Routine Faculty, Ad Real [facility] 1.2 .840.114 [id number] [facility] 09:27:42 10:36:46 Kyle Cordero MANAGER HUMAN CAPITAL 350.1.13. 10 ity of Visit REGIONAL 4.2.7.2.686 Eladio as MATERNAL [id number] Med ical & CHILD [facility] 2018-12-03 2018-12-03 Routine Faculty, [facility] 1.2.840.114 [id number] 09:27:42 10:36:46 Ang Rmchp MANAGER HUMAN CAPITAL 350.1.13.10 Visit [facility] 4.2.7.2.686 MATERNAL [id number] & CHILD [facility] 2018-11-29 2018-11-29 Routine Risk, Gcs-Jyjoh-Zn/High [facility] 1. 2.840.114 [id number] [facility] 12:45:37 13:38:16 Mila Ferguson MANAGER HUMAN CAPITAL 350.1.13.10 ity of Visit REGIONAL 4.2.7.2.686 Eladio as MATERNAL [id number] [facility] ical & CHILD [facility] 2018-11-29 2018-11-29 Routine Risk, [facility] 1.2.840.114 [id number] 12:45:37 13:38:16 Ang-Rmchp-N MANAGER HUMAN CAPITAL 350.1.13.10 Visit p/High REGIONAL 4.2.7.2.686 MATERNAL [id number] & CHILD [address] [place] [address] 2018-11-29 2018-11-29 Architecture Technician Ultrasound, [facility] 1.2 .840.114 [id number] Univers 11:09:01 11:48:17 Visit Calvin Patel MANAGER HUMAN CAPITAL 350.1.13.10 ity of REGIONAL 4.2.7.2.686 Eladio as MATERNAL [id number] Med ical & CHILD [facility] 2018-11-26 2018-11-26 Routine Faculty, Ang Rmchp [facility] 1.2 .840.114 [id number] Univers 10:07:03 11:06:11 Teresa Inga Siddiquie MANAGER HUMAN CAPITAL 350.1.1 3.10 ity of Visit REGIONAL 4.2.7.2.686 Eladio as MATERNAL [id number] [facility] ical & CHILD [facility] 2018-11-22 2018-11-22 Architecture Technician 5, [facility] Us Room UNIVERSIT 1 .2.840.114 [id number] [facility] 10:44:00 11:48:35 Visit Inga Moore [facility] 350.1.1 3.10 ity of Alison Reis [facility] 4.2.7.2.686 [place] [id number] [facility] 104 [place] 2018-11-22 2018-11-22 Routine Roger [facility] 1.2.723.105 [id number] Univers 08:04:45 09:05:49 Rimma Guadalupe MANAGER HUMAN CAPITAL 350.1.13.10 i ty of Visit [facility] 4.2.7.2.686 Eladio as MATERNAL [id number] [facility] ical & CHILD [address] [place] [address] 2018-11-19 2018-11-19 [facility] Lorrie Olmos [facility] 1.2.840.114 [id number] [facility] 12:24:36 16:05:00 Encounter Damien Coram 350.1.13.10 ity of [place] 4.2.7.2.686 [facility] [id number] [place] 851773 [place] 2018-11-19 2018-11-19 Routine Faculty, Ad Samson [facility] 1.2 .840.114 [id number] [facility] 09:18:45 10:07:14 Alison Reis MANAGER HUM[employer]ITAL 350.1.13.[address] [facility] 4.2.7.2.686 Eladio as MATERNAL [id number] [facility] CH[facility] [address] [place] [address] 2018-11-15 2018-11-15 Routine Faculty, Ad Samson [facility] 1.2 .840.114 [id number] Univers 13:56:25 15:11:31 Modesto De La Rosa MANAGER HUMAN CAPITAL 350.1.13.[address] [facility] 4.2.7.2.686 Eladio as MATERNAL [id number] [facility] & CHILD [address] [place] [address] 2018-11-14 2018-11-14 Architecture Technician Ultrasound, [facility] 1.2 .840.114 [id number] [facility] 10:38:34 11:32:09 Visit Alison Reis MANAGER HUM[employer] CAPITAL 350.1.13.[address] [facility] 4.2.7.2.686 Eladio as MATERNAL [id number] Med ical & CHILD [facility] 2018-11-12 2018-11-12 Routine Faculty, Ad [facility] 1.2 .840.114 [id number] [facility] 10:38:07 12:09:10 Inga Moore MANAGER HUMAN CAPITAL 350.1.1 3.[address] [facility] 4.2.7.2.686 Eladio as MATERNAL [id number] Med ical & CHILD [facility] 2018-11-01 2018-11-01 Case LITTLE Woodall 1.2.437.198 [id number] [facility] 00:00:00 00:00:[address] [facility] 350.1.13.10 ity of CLINICS 4.2.7.2.686 Noé s [id number] [facility] 113 [place] Results Test Description Test Time Test Comments Results Result Comments Source SURGICAL PATHOLOGY EXAM 2021-10-12 16:25:43 Test Item Value Reference Range Interpretation Comme nts Case Report (test code = 5082188921) Surgical Pathology ?Case: [id number] ? Authorizing Provider: ?Florencio Lr MD ? Collected: ? 10/07/2021 1537 ?Ordering Location: ? ? [facility] [place] ? Received: ?10/07/2021 1807 ? Department ? Pathologist: ? Catherine Moore, ? MD ? Specimen: ? ?UTERINE BODY W/OVARY AND FALLOPIAN TUBE, LEFT, Left ovary ? Final Diagnosis (test code = [id number] pc [id number]) dWMxIHtccnRmMVxlcGljOTYwMlxhbnNpXHNwbHRw D2CirqmeTAfmIX1zEU5wlKlbxDQwcPRkWTFxImAi z0mhu272hPCur6jdCZWYtkvnoRe9qHovZ78wt5K9 XpleQ29suOTuYKE4YGIzDDPkaKXiIPEdAHX4URWz lFYyV4alFAPyEP6uwqqzOZpnENdpLTEdqWX2RKJe nUToL4UlUOCeIFhoJWJjobs7VqYlPd5zaBElhEhn MFxwYXJkXHBsYWluXGZzMjBccGFyIEEuIFVURVJV UywgQklMQVRFUkFMIEZBTExPUElBTiBUVUJFUywg OXQNBVQHLnWHOEtvBDiAQWIEDGQXQ26SXNAWWRmW PLMOOHlmK1LXCZhMT5ALIB8KCSSCUfAqTKKRIPSW I2PSE5VCR2WXSRc1PQjtWZBrMGCjGK6vT6VDFzlE XoLRD2QURSSKMrWDUF5WBPEDQ89aI4mGIIUKGLBT NmNBZP4MIUHYPREHCkQWWJbXLWhQKnCMKYFKEWBm HQSdvlUuTUUoTWWBQrJXZMLPXcgYTUrvO9YXGuPI K9NPYSFUPDNKRByiSUKcFOIbPG6oFNnRJSDPUusV BFvkCKPEPx5XGF5QMTLdsNXaPQEjOVRrRHKOCBcM MStPVxPUHITDUsozEIFEWASEEuZWAPARL5JlcZZd ZQDnLTKuKAgKOcOsC4GLWuc1FPRJR0BHPpHWL8xE SUNMRVMgXHBhciAgICAgLSBJTlRSQUFSVEVSSUFM GOYBXx2OYKwDYKcVPjGWTXSNIkxXCIKJBAPOSBsJ LCMJIENiburnPTXtTVHarz58JUZ7CeRrw4G9XFDz LpDnMNWeSS0enVxrWAMyBJ7dOUDaI7nqrO8hmvz9 TwUeFXKqEtJ4JJJxanT8Gfh9ODCmFBhit2xps5Eb T6VprDBwkYs3f0hgSELcHoO1tRRgXItxW1iazwVu wNJeWMPrIDh7kGrxGtImUDIou5rbnyXjNpOhUIYy HYBsPDVnuMbuans9eN73FCRorE1gzCOzOVpqwxUg PuK0LFfrJUFhRmT1FSKzkHOySPCcO5wfUKKpNHps SRAyOJbhuNRjCFI9xNwlv7N0gNFsgQWizXplHhEw OeRwYGRTs6JaEPl9cOrxA2VnOYFtErN4xZDeZUTv JTebKCLlUEButxZ7cX49JIyzzaC0cERdm1Kvi03t t699lA1twIGxKJL5EXMfHNHfhIGrYWWmANH1ZZEk hLOrI3kkSCVoLT7ynwwiKMipYUwoEOOabBM6YNGx bHBsK0VmKTFyXSvmINZvllb3YjQfSz0nbOKvxXoh MQhuw2hrg2sqdTUpOas2LQTkUaEiRdmxCSwjn8Fu m4whDSKiva3dTAD0jGVdwIgdn2S4bJEbZTIgbGEg btWkIYQvUtR9HDipNU6riq61FZCiNQB1rx2wkQAz yYvcmmPriXTaUCscH7MqRKKiw057LPOeZ7IqORHz t9L8hcCgXaIfGRUcoJK5pzO7RHPhONr8dLOeyoP7 juMxjJKnS5wifP2fFTJkNL7fewjwc3xeKZmmHToi ZCDtdAL1nvK2CJUplCGhZ2AwlC7vJXAzMVmeMDVh nmk2KaVmQn7aoDWuxAhkCDnvCumnLFdzKKStwhZn bnRccGduZGVjXHBsYWluXHBsYWluXGYwXGZzMjRc eMpvcAarbH5qAbVvNcXiLYuzZR0qJVJiP9yuwGGd VIGlJYWwA4ugMgYvhF9dnMekNTcyRhPwOySnOPod WJUdZBJhRKIlDISectJeoiQxmPxaesQ6dRR1UMHt HCzkSZTiYARtsFFafi2mjKduCTJxEH2gQGPzyfKn CKvfiZcyYMidLLZ6WNRylMCjvWZvhQGzZYEjlDHv OAVfTISepUAqSICwbSlfq1Xcs4YruPH7kW9op3tx r7BvMMLicKN6OD46xfM2aJ0pGSPcTN4gNJEvMF1k aLKtlGCtLFXcj85hbHuqmhJaFIFmxwKrGUEvAYel XGYyXGZzMjhcbGFuZzEwMzNcaGljaFxmMlxkYmNo CIRoXHbtG8fuJzUaUrCwVPtoKCL2cN== Clinical Information (test code = menorrhagia 6166934693) Gross Description (test code = t4kcoEGrVGDboVA2TuYcSZKcr7vwd3WjaUUg cGFy [id number]) [file] L1MxlbG6UWQgft3= Disclaimer (test code = 6730329002) v3hmhQKfUYVmy1prGPNtxNYhNsMfCwY cZnRuYmpc lGDwOSokmtEwOQleo3XlA5ZbNxMmXCmbvkKiMUKk FtpmhznpHXKdUPI0sbRjEOFvWHeqIDNhDNduNl7i zDDmmGpbQuFiTWVzf5lvtiNISJcqCaHcM357PCAa HBcfp9ojw2CbWQZwbKRbo3P1KKVBjnaivCu1jVvn G29wf3Q2CjzeQ7xkDTTlGRJsJ7MaJY1sMOSaPfs5 SEG3KUI6PUVlXQGmF1XrLT9kEEHyxHHrQIo8e0cu zNefDAGrLVV9y7reWJcaqlBkUU6zzm6thWe4a0hv clYvWZWkHTPvwNTVSTRuP0UpaCuzJj8vyOg8fGkg MkdoBXI9Otu5IM5bxp74bbw9yWhbDBIlpzkoBsQ1 IVvzPIXhzklbMYp3CIfmJJQshOX5EWJwfWTsY3Dl PUAzDY7mpys0PCP4CWspGIXoHhD4KCQcyZLgYNAe uXpqECyjq392HEK6DhMxWE4kL3Wcn8U5mF7toKUl SEZmjSXkAvCtYDUgqu3xeOQlHZluq6LjYZS9nfC1 fQJyiYCuYRNlPP19Tybqz1ZkVqkje3TlN15wlST1 EBpqo5jyCV6tNqW9wsFsKAqua5tuyK7mJuD7NReb PX5oHK1mYVRcmW4kissgYHDnGwDagqhmOUXwaObz cvCeOd1vbZihYZG5VGfqG5goeQ2dUzX6UQwsP9ar iS1sRYb4WHzrcAR8WTAqeG8sTO8oipxha5vdUCze HNaaMZHnsoH9mlR3IJLrqUQgG5KetO6lTPVrHX4b yhmqz5zeVUV5EWwxQODxKVP6NyLgPVXog4Zdfta6 YmMzm2JzyHGcIKqhB46ay112EYRazeZoJ5jzzJNd rhnfrMKyavixUNxbhuH7OKIshoPez5IdQQFtJUR1 ABnwYAqekLOpXWMxcGvec8hcI6JitLFfEIZzTYmf XGYxXGZzMjBcbGFuZzEwMzNcaGljaFxmMVxkYmNo [file] R0haHnMgcY7vuUdbAVcbTbAdZmCyZMneWBS5nA== Embedded Images (test code = [id number]) [facility] WITH [id number] 11:52:00 Test Item Value Reference Range Interpretation [...] RDW-SD (test code = 49.1 fL 39.0-49.9 64784-3) RDW-CV (test code = 17.5 % 12.0-15.5 H 788-0) PLT (test code = See_Comment L [Automated 777-3) message] The sy stem which generated this result transmitted reference range : 166 - 358 10*3/ ?L. The reference r susan was not used to interpret this result as normal/abnormal . MPV (test code = 10.3 fL 9.5-12.9 08261-1) NRBC/100 WBC (test See_Comment [Automat ed code = [id number]) message] The system which generated this result transmitted reference range : 0.0 - 10.0 /100 WBCs. The refer ence range was not u sed to interpret th is result as normal/abnormal . NRBC x10^3 (test code <0.01 See_Comment [Auto mated = [id number]) message] The s ystem which generated this result transmitted reference range : 10*3/?L. The reference range was not used to interpret this result as normal/abnormal . GRAN MAT (NEUT) % 63.9 % (test code = 770-8) IMM GRAN % (test code 0.20 % = 2709533998) LYMPH % (test code = 23.4 % 736-9) MONO % (test code = 9.6 % 5905-5) EOS % (test code = 2.5 % 713-8) BASO % (test code = 0.4 % 706-2) GRAN MAT x10^3(ANC) 3.28 10*3/uL 1.88-7.09 (test code = 7463009891) IMM GRAN x10^3 (test <0.03 0.00-0.06 code = 7130729790) LYMPH x10^3 (test code 1.20 10*3/uL 1.32-3.29 L = 731-0) MONO x10^3 (test code 0.49 10*3/uL 0.33-0.92 = 742-7) EOS x10^3 (test code = 0.13 10*3/uL 0.03-0.39 711-2) BASO x10^3 (test code <0.03 0.01-0.07 = 704-7) Lab Interpretation Abnormal (test code = 30800-7) [facility] WITHOUT [id number] 00:47:16 Test Item Value Reference Range Interpretation Comments WBC (test code = 6690-2) See_Comment [A utomated message] The system [employer] generated this result transmit ramana reference range : 4.30 - 11.10 10*3/?L. The reference range was not used to interpret this result as normal/abnormal . RBC (test code = 789-8) See_Comment L [Au tomated message] The system [employer] generated this result transmit ramana reference range [...] See_Comment L [Au tomated message] The system [facility] generated this result transmit ramana reference range : 166 - 358 10*3/?L. The reference range was not used to interpret this result as normal/abnormal . MPV (test code = 11.5 fL 9.5-12.9 74643-5) RDW-CV (test code = 16.1 % 12.0-15.5 H 788-0) RDW-SD (test code = 50.6 fL 39.0-49.9 H 41025-2) NRBC x10^3 (test code = <0.01 See_Comment [Au tomated message] 2612636571) The system [employer] generated this result transmit ramana reference range : 10*3/?L. The reference range was not used to interpret this result as normal/abnormal . NRBC/100 WBC (test code See_Comment [Au tomated message] = 1301517201) The system [facility] generated this result transmit ramana reference range : 0.0 - 10.0 /100 WBC s. The reference r susan was not used to interpret this result as normal/abnormal . IPF % (test code = 8230512990) Lab Interpretation (test Abnormal code = 04685-2) [facility] WITHOUT [id number] 00:47:16 Test Item Value Reference Range Interpretation Comments WBC (test code = 6690-2) See_Comment [A utomated message] The system [employer] generated this result transmit ramana reference range : 4.30 - 11.10 10*3/?L. The reference range was not used to interpret this result as normal/abnormal . RBC (test code = 789-8) See_Comment L [Au tomated message] The system [employer] generated this result transmit ramana reference range [...] See_Comment L [Au tomated message] The system [employer] generated this result transmit ramana reference range : 166 - 358 10*3/?L. The reference range was not used to interpret this result as normal/abnormal . MPV (test code = 11.5 fL 9.5-12.9 60834-3) RDW-CV (test code = 16.1 % 12.0-15.5 H 788-0) RDW-SD (test code = 50.6 fL 39.0-49.9 H 90406-5) NRBC x10^3 (test code = <0.01 See_Comment [Au tomated message] 7239961803) The system [employer] generated this result transmit ramana reference range : 10*3/?L. The reference range was not used to interpret this result as normal/abnormal . NRBC/100 WBC (test code See_Comment [Au tomated message] = 4739407814) The system [facility] generated this result transmit ramana reference range : 0.0 - 10.0 /100 WBC s. The reference r susan was not used to interpret this result as normal/abnormal . IPF % (test code = 6507877357) Lab Interpretation (test Abnormal code = 11519-8) [facility]+COOX+NA+K+GLU+CA2+2021-10-11 00:18:05 Test Item Value Reference Range Interpretation Comments PH (test code = 2) 7.35-7.45 PCO2 (test code = See_Comment [Automate d message] 3008630877) The system [employer] generated this result transmit ramana reference range : 35 - 45 mmHg. The reference range was not used to interpret this result as normal/abnormal . PO2 (test code = See_Comment H [Automated message] 5750810625) The system [employer] generated this result transmit ramana reference range : 80 - 100 mmHg. The reference range was not used to interpret this result as normal/abnormal . HCO3 (test code = See_Comment L [Automate d message] 5995342043) The system [employer] generated this result transmit ramana reference range : 22 - 26 mEq/L. The reference range was not used to interpret this result as normal/abnormal . BE (test code = See_Comment L [Automated message] 7925927571) The system [employer] generated this result transmit ramana reference range : -3.0 - 3.0 mEq/ L. The reference r susan was not used to interpret this result as normal/abnormal . THB (test code = 5.6 g/dL 12.0-16.0 LL 7006828860) %O2HB (test code = 97.8 % 94.0-99.0 6341975089) %COHB ART (test code = 0.8 % 0.0-1.5 7436575571) %METHB ART (test code = 0.8 % 0.4-1.5 4682185309) VOL%O2 ART (test code = 9.2 % 15.0-23.0 L QUES 4283434927) NA (test code = 132 mmol/L 135-145 L 6823937472) K+ (test code = 4.3 mmol/L 3.5-5.0 8871147276) AC CA IONZ (test code = 6.60 mg/dL 4.50-5.30 HH 4582602293) GLUCOSE (test code = 150 mg/dL 70-110 H 1796705463) Lab Interpretation Abnormal (test code = 16001-5) [facility]:05 Test Item Value Reference Range Interpretation Comments PH (test code = 2) 7.35-7.45 PCO2 (test code = See_Comment [Automate d message] 5750172739) The system [employer] generated this result transmit ramana reference range : 35 - 45 mmHg. The reference range was not used to interpret this result as normal/abnormal . PO2 (test code = See_Comment H [Automated message] 3761654005) The system [employer] generated this result transmit ramana reference range : 80 - 100 mmHg. The reference range was not used to interpret this result as normal/abnormal . HCO3 (test code = See_Comment L [Automate d message] 3710005503) The system [employer] generated this result transmit ramana reference range : 22 - 26 mEq/L. The reference range was not used to interpret this result as normal/abnormal . BE (test code = See_Comment L [Automated message] 2272782794) The system [employer] generated this result transmit ramana reference range : -3.0 - 3.0 mEq/ L. The reference r susan was not used to interpret this result as normal/abnormal . THB (test code = 5.6 g/dL 12.0-16.0 LL 0174485410) %O2HB (test code = 97.8 % 94.0-99.0 4229443442) %COHB ART (test code = 0.8 % 0.0-1.5 8407017557) %METHB ART (test code = 0.8 % 0.4-1.5 9658183168) VOL%O2 ART (test code = 9.2 % 15.0-23.0 L QUES 5226007921) NA (test code = 132 mmol/L 135-145 L 8636253026) K+ (test code = 4.3 mmol/L 3.5-5.0 6705866685) AC CA IONZ (test code = 6.60 mg/dL 4.50-5.30 3023107624) GLUCOSE (test code = 150 mg/dL 70-110 H 8268464592) Lab Interpretation Abnormal (test code = 39315-9) [facility]:17:20 Test Item Value Reference Range Interpretation Comments PH (test code = 2) 7.35-7.45 PCO2 (test code = See_Comment [Automate d message] 2971791309) The system [employer] generated this result transmit ramana reference range : 35 - 45 mmHg. The reference range was not used to interpret this result as normal/abnormal . PO2 (test code = See_Comment H [Automated message] 4524152135) The system [employer] generated this result transmit ramana reference range : 80 - 100 mmHg. The reference range was not used to interpret this result as normal/abnormal . HCO3 (test code = See_Comment [Automate d message] 4780240588) The system [employer] generated this result transmit ramana reference range : 22 - 26 mEq/L. The reference range was not used to interpret this result as normal/abnormal . BE (test code = See_Comment L [Automated message] 1486126542) The system [employer] generated this result transmit ramana reference range : -3.0 - 3.0 mEq/ L. The reference r susan was not used to interpret this result as normal/abnormal . THB (test code = 6.7 g/dL 12.0-16.0 LL 7762874294) %O2HB (test code = 97.9 % 94.0-99.0 4036548012) %COHB ART (test code = 0.8 % 0.0-1.5 2231539831) %METHB ART (test code = 0.4 % 0.4-1.5 3041561816) VOL%O2 ART (test code = 10.3 % 15.0-23.0 L QUES 1424032507) NA (test code = 132 mmol/L 135-145 L 1219895761) K+ (test code = 4.1 mmol/L 3.5-5.0 5508595726) AC CA IONZ (test code = 4.40 mg/dL 4.50-5.30 L 0278246217) GLUCOSE (test code = 173 mg/dL 70-110 H 8633632728) Lab Interpretation Abnormal (test code = 36654-2) [facility] 00:17:20 Test Item Value Reference Range Interpretation Comments PH (test code = 2) 7.35-7.45 PCO2 (test code = See_Comment [Automate d message] 6229802663) The system [employer] generated this result transmit ramana reference range : 35 - 45 mmHg. The reference range was not used to interpret this result as normal/abnormal . PO2 (test code = See_Comment H [Automated message] 1725058665) The system [employer] generated this result transmit ramana reference range : 80 - 100 mmHg. The reference range was not used to interpret this result as normal/abnormal . HCO3 (test code = See_Comment [Automate d message] 7513334850) The system [employer] generated this result transmit ramana reference range : 22 - 26 mEq/L. The reference range was not used to interpret this result as normal/abnormal . BE (test code = See_Comment L [Automated message] 1835946468) The system [employer] generated this result transmit ramana reference range : -3.0 - 3.0 mEq/ L. The reference r susan was not used to interpret this result as normal/abnormal . THB (test code = 6.7 g/dL 12.0-16.0 LL 1191152430) %O2HB (test code = 97.9 % 94.0-99.0 3147556778) %COHB ART (test code = 0.8 % 0.0-1.5 6416881533) %METHB ART (test code = 0.4 % 0.4-1.5 4978051180) VOL%O2 ART (test code = 10.3 % 15.0-23.0 L QUES 1811901667) NA (test code = 132 mmol/L 135-145 L 5229173400) K+ (test code = 4.1 mmol/L 3.5-5.0 8760394777) AC CA IONZ (test code = 4.40 mg/dL 4.50-5.30 L 5078038493) GLUCOSE (test code = 173 mg/dL 70-110 H 3247639852) Lab Interpretation Abnormal (test code = 77134-5) [facility] 00:16:35 Test Item Value Reference Range Interpretation Comments PH (test code = 2) 7.35-7.45 PCO2 (test code = See_Comment L [Automate d message] 1044816130) The system [employer] generated this result transmit ramana reference range : 35 - 45 mmHg. The reference range was not used to interpret this result as normal/abnormal . PO2 (test code = See_Comment H [Automated message] 6266596667) The system [employer] generated this result transmit ramana reference range : 80 - 100 mmHg. The reference range was not used to interpret this result as normal/abnormal . HCO3 (test code = See_Comment L [Automate d message] 7091578167) The system [employer] generated this result transmit ramana reference range : 22 - 26 mEq/L. The reference range was not used to interpret this result as normal/abnormal . BE (test code = See_Comment L [Automated message] 8911155940) The system [employer] generated this result transmit ramana reference range : -3.0 - 3.0 mEq/ L. The reference r susan was not used to interpret this result as normal/abnormal . THB (test code = 7.3 g/dL 12.0-16.0 LL 6421815913) %O2HB (test code = 98.0 % 94.0-99.0 7489519867) %COHB ART (test code = 0.7 % 0.0-1.5 4909988434) %METHB ART (test code = 0.3 % 0.4-1.5 L 6295667807) VOL%O2 ART (test code = 10.9 % 15.0-23.0 L QUES 8406140466) NA (test code = 133 mmol/L 135-145 L 5107128399) K+ (test code = 4.2 mmol/L 3.5-5.0 7851632421) AC CA IONZ (test code = 4.30 mg/dL 4.50-5.30 L 4606169721) GLUCOSE (test code = 161 mg/dL 70-110 H 2102915650) Lab Interpretation Abnormal (test code = 03591-1) [facility] 00:16:35 Test Item Value Reference Range Interpretation Comments PH (test code = 2) 7.35-7.45 PCO2 (test code = See_Comment L [Automate d message] 7466620788) The system [employer] generated this result transmit ramana reference range : 35 - 45 mmHg. The reference range was not used to interpret this result as normal/abnormal . PO2 (test code = See_Comment H [Automated message] 7042185182) The system [employer] generated this result transmit ramana reference range : 80 - 100 mmHg. The reference range was not used to interpret this result as normal/abnormal . HCO3 (test code = See_Comment L [Automate d message] 5658137085) The system [employer] generated this result transmit ramana reference range : 22 - 26 mEq/L. The reference range was not used to interpret this result as normal/abnormal . BE (test code = See_Comment L [Automated message] 1614599429) The system [employer] generated this result transmit ramana reference range : -3.0 - 3.0 mEq/ L. The reference r susan was not used to interpret this result as normal/abnormal . THB (test code = 7.3 g/dL 12.0-16.0 LL 8159350500) %O2HB (test code = 98.0 % 94.0-99.0 8813198496) %COHB ART (test code = 0.7 % 0.0-1.5 5627257481) %METHB ART (test code = 0.3 % 0.4-1.5 L 1169560389) VOL%O2 ART (test code = 10.9 % 15.0-23.0 L QUES 7941838939) NA (test code = 133 mmol/L 135-145 L 8255715600) K+ (test code = 4.2 mmol/L 3.5-5.0 3631368920) AC CA IONZ (test code = 4.30 mg/dL 4.50-5.30 L 2223300955) GLUCOSE (test code = 161 mg/dL 70-110 H 0181124085) Lab Interpretation Abnormal (test code = 69477-6) [facility] 00:15:34 Test Item Value Reference Range Interpretation Comments PH (test code = 2) 7.35-7.45 PCO2 (test code = See_Comment L [Automate d message] 2766708390) The system [employer] generated this result transmit ramana reference range : 35 - 45 mmHg. The reference range was not used to interpret this result as normal/abnormal . PO2 (test code = See_Comment H [Automated message] 5446446076) The system [employer] generated this result transmit ramana reference range : 80 - 100 mmHg. The reference range was not used to interpret this result as normal/abnormal . HCO3 (test code = See_Comment L [Automate d message] 0370006321) The system [employer] generated this result transmit ramana reference range : 22 - 26 mEq/L. The reference range was not used to interpret this result as normal/abnormal . BE (test code = See_Comment [Automated message] 9533001850) The system [employer] generated this result transmit ramana reference range : -3.0 - 3.0 mEq/ L. The reference r susan was not used to interpret this result as normal/abnormal . THB (test code = 7.8 g/dL 12.0-16.0 LL 1120147333) %O2HB (test code = 98.1 % 94.0-99.0 7083738171) %COHB ART (test code = 0.9 % 0.0-1.5 8536379618) %METHB ART (test code = 0.2 % 0.4-1.5 L 9946095424) VOL%O2 ART (test code = 12.2 % 15.0-23.0 L QUES 0938108285) NA (test code = 133 mmol/L 135-145 L 6970162096) K+ (test code = 4.3 mmol/L 3.5-5.0 3061658540) AC CA IONZ (test code = 5.30 mg/dL 4.50-5.30 0903250419) GLUCOSE (test code = 111 mg/dL 70-110 H 6902428564) Lab Interpretation Abnormal (test code = 76993-8) [facility] 00:15:34 Test Item Value Reference Range Interpretation Comments PH (test code = 2) 7.35-7.45 PCO2 (test code = See_Comment L [Automate d message] 9710380777) The system [employer] generated this result transmit ramana reference range : 35 - 45 mmHg. The reference range was not used to interpret this result as normal/abnormal . PO2 (test code = See_Comment H [Automated message] 9975239984) The system [employer] generated this result transmit ramana reference range : 80 - 100 mmHg. The reference range was not used to interpret this result as normal/abnormal . HCO3 (test code = See_Comment L [Automate d message] 9306172907) The system [employer] generated this result transmit ramana reference range : 22 - 26 mEq/L. The reference range was not used to interpret this result as normal/abnormal . BE (test code = See_Comment [Automated message] 8727558506) The system [employer] generated this result transmit ramana reference range : -3.0 - 3.0 mEq/ L. The reference r susan was not used to interpret this result as normal/abnormal . THB (test code = 7.8 g/dL 12.0-16.0 LL 7364169756) %O2HB (test code = 98.1 % 94.0-99.0 0546937713) %COHB ART (test code = 0.9 % 0.0-1.5 6385448638) %METHB ART (test code = 0.2 % 0.4-1.5 L 4589257791) VOL%O2 ART (test code = 12.2 % 15.0-23.0 L QUES 2212073866) NA (test code = 133 mmol/L 135-145 L 7051738072) K+ (test code = 4.3 mmol/L 3.5-5.0 1531015275) AC CA IONZ (test code = 5.30 mg/dL 4.50-5.30 9168325000) GLUCOSE (test code = 111 mg/dL 70-110 H 0202425232) Lab Interpretation Abnormal (test code = 20325-8) [facility] METABOLIC PANEL (NA, K, CL, CO2, GLUCOSE, BUN, CREATININE, CA)2021-10-10 11:50:35 Test Item Value Reference Range Interpretation Comments NA (test code = 135 mmol/L 135-145 5485018667) K (test code = 3.6 mmol/L 3.5-5.0 7526526186) CL (test code = 105 mmol/L 98-108 7828129892) CO2 TOTAL (test code = 30 mmol/L 23-31 8124861747) AGAP (test code = <1 2-16 L 0157516089) BUN (test code = 3 mg/dL 7-23 L 8436082648) GLUCOSE (test code = 102 mg/dL 70-110 2885537759) CREATININE (test code = 0.50 mg/dL 0.50-1.04 5248284369) CALCIUM (test code = 8.1 mg/dL 8.6-10.6 L 7515561905) eGFR (test code = mL/min/1.73m2 0687502510) MICKY (test code = MICKY) Association of [...] tests). Lab Interpretation Abnormal (test code = 13885-5) [facility] METABOLIC PANEL (NA, K, CL, CO2, GLUCOSE, BUN, CREATININE, CA)2021-10-10 11:50:35 Test Item Value Reference Range Interpretation Comments NA (test code = 135 mmol/L 135-145 6583213084) K (test code = 3.6 mmol/L 3.5-5.0 0039122901) CL (test code = 105 mmol/L 98-108 4834444905) CO2 TOTAL (test code = 30 mmol/L 23-31 3787456679) AGAP (test code = <1 2-16 L 2105039788) BUN (test code = 3 mg/dL 7-23 L 6520456817) GLUCOSE (test code = 102 mg/dL 70-110 0704136527) CREATININE (test code = 0.50 mg/dL 0.50-1.04 5741913287) CALCIUM (test code = 8.1 mg/dL 8.6-10.6 L 5705303237) eGFR (test code = mL/min/1.73m2 8699726122) MICKY (test code = MICKY) Association of [...] tests). Lab Interpretation Abnormal (test code = 29702-3) [facility] Test Item Value Reference Range Interpretation Comments MAGNESIUM (test code = 3212567341) 2.0 mg/dL 1.7-2.4 Lab Interpretation (test code = Normal 35622-3) [facility]04 Test Item Value Reference Range Interpretation Comments PHOSPHORUS (test code = 8106642138) 3.4 mg/dL 2.5-5.0 Lab Interpretation (test code = Normal 85950-2) [facility]04 Test Item Value Reference Range Interpretation Comments MAGNESIUM (test code = 6407817884) 2.0 mg/dL 1.7-2.4 Lab Interpretation (test code = Normal 01716-7) [facility] 11:[facility]:04 Test Item Value Reference Range Interpretation Comments PHOSPHORUS (test code = 1115648606) 3.4 mg/dL 2.5-5.0 Lab Interpretation (test code = Normal 81713-4) [facility] [id number] 11:26:59 Test Item Value Reference Range Interpretation Comments WBC (test code = 6690-2) See_Comment [A utomated message] The system [employer] generated this result transmit rmaana reference range : 4.30 - 11.10 10*3/?L. The reference range was not used to interpret this result as normal/abnormal . RBC (test code = 789-8) See_Comment L [Au tomated message] The system [employer] generated this result transmit ramana reference range [...] See_Comment L [Au tomated message] The system [employer] generated this result transmit ramana reference range : 166 - 358 10*3/?L. The reference range was not used to interpret this result as normal/abnormal . MPV (test code = 10.9 fL 9.5-12.9 86260-3) RDW-CV (test code = 16.4 % 12.0-15.5 H 788-0) RDW-SD (test code = 50.1 fL 39.0-49.9 H 53948-3) NRBC x10^3 (test code = <0.01 See_Comment [Au tomated message] 8196373530) The system [employer] generated this result transmit ramana reference range : 10*3/?L. The reference range was not used to interpret this result as normal/abnormal . NRBC/100 WBC (test code See_Comment [Au tomated message] = 5565038552) The system [facility] generated this result transmit ramana reference range : 0.0 - 10.0 /100 WBC s. The reference r susan was not used to interpret this result as normal/abnormal . IPF % (test code = 6484737390) Lab Interpretation (test Abnormal code = 13248-3) [facility] WITHOUT [id number] 11:26:59 Test Item Value Reference Range Interpretation Comments WBC (test code = 6690-2) See_Comment [A utomated message] The system [facility] generated this result transmit ramana reference range : 4.30 - 11.10 10*3/?L. The reference range was not used to interpret this result as normal/abnormal . RBC (test code = 789-8) See_Comment L [Au tomated message] The system [facility] generated this result transmit ramana [...] See_Comment L [Au tomated message] The system [facility] generated this result transmit ramana reference range : 166 - 358 10*3/?L. The reference range was not used to interpret this result as normal/abnormal . MPV (test code = 10.9 fL 9.5-12.9 09063-6) RDW-CV (test code = 16.4 % 12.0-15.5 H 788-0) RDW-SD (test code = 50.1 fL 39.0-49.9 H 45782-3) NRBC x10^3 (test code = <0.01 See_Comment [Au tomated message] 4613064588) The system [employer] generated this result transmit ramana reference range : 10*3/?L. The reference range was not used to interpret this result as normal/abnormal . NRBC/100 WBC (test code See_Comment [Au tomated message] = 8772067928) The system [facility] generated this result transmit ramana reference range : 0.0 - 10.0 /100 WBC s. The reference r susan was not used to interpret this result as normal/abnormal . IPF % (test code = 3660289336) Lab Interpretation (test Abnormal code = 78125-5) [facility] WITHOUT [id number] 00:02:03 Test Item Value Reference Range Interpretation Comments WBC (test code = 6690-2) See_Comment [A utomated message] The system [facility] [employer] generated this result transmit ramana reference range : 4.30 - 11.10 10*3/?L. The reference range was not used to interpret this result as normal/abnormal . RBC (test code = 789-8) See_Comment L [Au tomated message] The system [facility] [employer] generated this result transmit ramana reference range [...] See_Comment L [Au tomated message] The system [facility] generated this result transmit ramana reference range : 166 - 358 10*3/?L. The reference range was not used to interpret this result as normal/abnormal . MPV (test code = 11.0 fL 9.5-12.9 70574-2) RDW-CV (test code = 15.9 % 12.0-15.5 H 788-0) RDW-SD (test code = 49.4 fL 39.0-49.9 47689-4) NRBC x10^3 (test code = See_Comment [Au tomated message] 9089616381) The system [facility] generated this result transmit ramana reference range : 10*3/?L. The reference range was not used to interpret this result as normal/abnormal . NRBC/100 WBC (test code See_Comment [Au tomated message] = 7717948572) The system [facility] generated this result transmit ramana reference range : 0.0 - 10.0 /100 WBC s. The reference r susan was not used to interpret this result as normal/abnormal . IPF % (test code = 4939293993) Lab Interpretation (test Abnormal code = 88404-3) [facility] WITHOUT [id number] 00:02:03 Test Item Value Reference Range Interpretation Comments WBC (test code = 6690-2) See_Comment [A utomated message] The system [facility] generated this result transmit ramana reference range : 4.30 - 11.10 10*3/?L. The reference range was not used to interpret this result as normal/abnormal . RBC (test code = 789-8) See_Comment L [Au tomated message] The system [employer] generated this result transmit ramana reference range [...] See_Comment L [Au tomated message] The system [employer] generated this result transmit ramana reference range : 166 - 358 10*3/?L. The reference range was not used to interpret this result as normal/abnormal . MPV (test code = 11.0 fL 9.5-12.9 19615-4) RDW-CV (test code = 15.9 % 12.0-15.5 H 788-0) RDW-SD (test code = 49.4 fL 39.0-49.9 85771-9) NRBC x10^3 (test code = See_Comment [Au tomated message] 1405358902) The system [employer] generated this result transmit ramana reference range : 10*3/?L. The reference range was not used to interpret this result as normal/abnormal . NRBC/100 WBC (test code See_Comment [Au tomated message] = 4110545551) The system [facility] generated this result transmit ramana reference range : 0.0 - 10.0 /100 WBC s. The reference r susan was not used to interpret this result as normal/abnormal . IPF % (test code = 8372136310) Lab Interpretation (test Abnormal code = 65567-7) [facility] WITHOUT [id number] 16:52:03 Test Item Value Reference Range Interpretation Comments WBC (test code = 6690-2) See_Comment [A utomated message] The system [facility] generated this result transmit ramana reference range : 4.30 - 11.10 10*3/?L. The reference range was not used to interpret this result as normal/abnormal . RBC (test code = 789-8) See_Comment L [Au tomated message] The system [facility] generated this result transmit ramana [...] See_Comment L [Au tomated message] The system [facility] generated this result transmit ramana reference range : 166 - 358 10*3/?L. The reference range was not used to interpret this result as normal/abnormal . MPV (test code = 10.4 fL 9.5-12.9 33017-9) RDW-CV (test code = 15.8 % 12.0-15.5 H 788-0) RDW-SD (test code = 47.8 fL 39.0-49.9 46478-6) NRBC x10^3 (test code = See_Comment [Au tomated message] 7588124159) The system [facility] generated this result transmit ramana reference range : 10*3/?L. The reference range was not used to interpret this result as normal/abnormal . NRBC/100 WBC (test code See_Comment [Au tomated message] = 5070945388) The system [facility] generated this result transmit ramana reference range : 0.0 - 10.0 /100 WBC s. The reference r susan was not used to interpret this result as normal/abnormal . IPF % (test code = 0656368567) Lab Interpretation (test Abnormal code = 02741-4) [facility] WITHOUT [id number] 16:52:03 Test Item Value Reference Range Interpretation Comments WBC (test code = 6690-2) See_Comment [A utomated message] The system [employer] generated this result transmit ramana reference range : 4.30 - 11.10 10*3/?L. The reference range was not used to interpret this result as normal/abnormal . RBC (test code = 789-8) See_Comment L [Au tomated message] The system [employer] generated this result transmit ramana reference range [...] See_Comment L [Au tomated message] The system [employer] generated this result transmit ramana reference range : 166 - 358 10*3/?L. The reference range was not used to interpret this result as normal/abnormal . MPV (test code = 10.4 fL 9.5-12.9 02585-8) RDW-CV (test code = 15.8 % 12.0-15.5 H 788-0) RDW-SD (test code = 47.8 fL 39.0-49.9 30297-6) NRBC x10^3 (test code = See_Comment [Au tomated message] 0615976630) The system [employer] generated this result transmit ramana reference range : 10*3/?L. The reference range was not used to interpret this result as normal/abnormal . NRBC/100 WBC (test code See_Comment [Au tomated message] = 5000746513) The system [facility] generated this result transmit ramana reference range : 0.0 - 10.0 /100 WBC s. The reference r susan was not used to interpret this result as normal/abnormal . IPF % (test code = 2663105203) Lab Interpretation (test Abnormal code = 31516-3) [facility] Test Item Value Reference Range Interpretation Comments MAGNESIUM (test code = 8830061104) 1.6 mg/dL 1.7-2.4 L Lab Interpretation (test code = Abnormal 78347-9) [facility] Test Item Value Reference Range Interpretation Comments PHOSPHORUS (test code = 2817652205) 3.0 mg/dL 2.5-5.0 Lab Interpretation (test code = Normal 35794-0) [facility] Test Item Value Reference Range Interpretation Comments MAGNESIUM (test code = 5785641280) 1.6 mg/dL 1.7-2.4 L Lab Interpretation (test code = Abnormal 89766-1) [facility] Test Item Value Reference Range Interpretation Comments PHOSPHORUS (test code = 5444771619) 3.0 mg/dL 2.5-5.0 Lab Interpretation (test code = Normal 89765-0) [facility] Packed RBC (in units), 1 Units 2021-10-09 10:06:26 Test Item Value Reference Range Interpretation Comments Cross Match Result Compatible (test code = 4409) ISBT Blood Type Code (test code = 385935) Unit Blood Type (test A Pos code = 4410) Unit Number (test [id number] code = 4411) Blood Expiration Date & Time (test code = 891148) Status Information Issued (test code = 4412) Product Red Blood Cells Identification (test code = 4413) Product Code (test Z7620C34 Performed at [facility] code = 4414) Laboratory Services - [facility] Blood [address] [place] [address]Qcwe Free: [phone] A No. [id number] [facility] Packed RBC (in units), 1 Units 2021-10-09 10:06:26 Test Item Value Reference Range Interpretation Comments Cross Match Result Compatible (test code = 4409) ISBT Blood Type Code (test code = 134914) Unit Blood Type (test A Pos code = 4410) Unit Number (test [id number] code = 4411) Blood Expiration Date & Time (test code = 108091) Status Information Issued (test code = 4412) Product Red Blood Cells Identification (test code = 4413) Product Code (test Y5561S50 Performed at [facility] code = 4414) Laboratory Services - [facility] Blood [address] [address]Zmuo Free: [phone] A No. [id number] [facility] (NA, K, CL, CO2, GLUCOSE, BUN, CREATININE, CA)2021-10-09 10:00:59 Test Item Value Reference Range Interpretation Comments NA (test code = 134 mmol/L 135-145 L 5960114437) K (test code = 3.9 mmol/L 3.5-5.0 9799018082) CL (test code = 106 mmol/L 98-108 4075396436) CO2 TOTAL (test code = 29 mmol/L 23-31 2750037401) AGAP (test code = <1 2-16 L 4460422599) BUN (test code = 7 mg/dL 7-23 5597802220) GLUCOSE (test code = 119 mg/dL 70-110 H 0689548413) CREATININE (test code = 0.49 mg/dL 0.50-1.04 L 7098627839) CALCIUM (test code = 7.5 mg/dL 8.6-10.6 L 4606041971) eGFR (test code = mL/min/1.73m2 1000341107) MICKY (test code = MICKY) Association of [...] tests). Lab Interpretation Abnormal (test code = 99479-6) [facility] METABOLIC PANEL (NA, K, CL, CO2, GLUCOSE, BUN, CREATININE, CA)2021-10-09 10:00:59 Test Item Value Reference Range Interpretation Comments NA (test code = 134 mmol/L 135-145 L 7338142252) K (test code = 3.9 mmol/L 3.5-5.0 8150853258) CL (test code = 106 mmol/L 98-108 6790993039) CO2 TOTAL (test code = 29 mmol/L 23-31 8881965920) AGAP (test code = <1 2-16 L 7346672614) BUN (test code = 7 mg/dL 7-23 6661793464) GLUCOSE (test code = 119 mg/dL 70-110 H 8901620796) CREATININE (test code = 0.49 mg/dL 0.50-1.04 L 0386533347) CALCIUM (test code = 7.5 mg/dL 8.6-10.6 L 3250208183) eGFR (test code = mL/min/1.73m2 5021675114) MICKY (test code = MICKY) Association of [...] tests). Lab Interpretation Abnormal (test code = 71380-2) [facility] WITHOUT [id number] 09:00:48 Test Item Value Reference Range Interpretation Comments WBC (test code = See_Comment [Automated message] 6690-2) The system [employer] generated this result transmitted ref erence range: 4.30 - 1 1.10 10*3/?L. The reference range was not used to int erpret this result as normal/abnormal . RBC (test code = 789-8) See_Comment L [Au tomated message] The system [employer] generated this result transmitted ref erence range: [...] See_Comment L [Au tomated message] The system [employer] generated this result transmitted ref erence range: 166 - 35 8 10*3/?L. The reference range was not used to int erpret this result as normal/abnormal . MPV (test code = 10.9 fL 9.5-12.9 66751-9) RDW-CV (test code = 16.3 % 12.0-15.5 H 788-0) RDW-SD (test code = 48.7 fL 39.0-49.9 77148-2) NRBC x10^3 (test code = <0.01 See_Comment [Au tomated message] 9426373690) The system [employer] generated this result transmitted ref erence range: 10*3/?L. The reference range was not used to int erpret this result as normal/abnormal . NRBC/100 WBC (test code See_Comment [Au tomated message] = 3513271780) The system [employer] generated this result transmitted ref erence range: 0.0 - 10 .0 /100 WBCs. The reference range was not used to int erpret this result as normal/abnormal . IPF % (test code = 3.6 % 1.3-7.7 Platelet count 1712778601) measured by fluorescence me thod. Lab Interpretation Abnormal (test code = 05087-7) [facility] WITHOUT [id number] 09:00:48 Test Item Value Reference Range Interpretation Comments WBC (test code = See_Comment [Automated message] 6690-2) The system [employer] generated this result transmitted ref erence range: 4.30 - 1 1.10 10*3/?L. The reference range was not used to int erpret this result as normal/abnormal . RBC (test code = 789-8) See_Comment L [Au tomated message] The system [employer] generated this result transmitted ref erence range: [...] See_Comment L [Au tomated message] The system [employer] generated this result transmitted ref erence range: 166 - 35 8 10*3/?L. The reference range was not used to int erpret this result as normal/abnormal . MPV (test code = 10.9 fL 9.5-12.9 37875-2) RDW-CV (test code = 16.3 % 12.0-15.5 H 788-0) RDW-SD (test code = 48.7 fL 39.0-49.9 80041-3) NRBC x10^3 (test code = <0.01 See_Comment [Au tomated message] 6944285302) The system [employer] generated this result transmitted ref erence range: 10*3/?L. The reference range was not used to int erpret this result as normal/abnormal . NRBC/100 WBC (test code See_Comment [Au tomated message] = 2546486941) The system [employer] generated this result transmitted ref erence range: 0.0 - 10 .0 /100 WBCs. The reference range was not used to int erpret this result as normal/abnormal . IPF % (test code = 3.6 % 1.3-7.7 Platelet count 1312830971) measured by fluorescence me thod. Lab Interpretation Abnormal (test code = 46719-3) [facility] WITHOUT [id number] 01:42:07 Test Item Value Reference Range Interpretation Comments WBC (test code = See_Comment [Automated message] 6690-2) The system [employer] generated this result transmitted ref erence range: 4.30 - 1 1.10 10*3/?L. The reference range was not used to int erpret this result as normal/abnormal . RBC (test code = 789-8) See_Comment L [Au tomated message] The system [employer] generated this result transmitted ref erence range: [...] See_Comment L [Au tomated message] The system [employer] generated this result transmitted ref erence range: 166 - 35 8 10*3/?L. The reference range was not used to int erpret this result as normal/abnormal . MPV (test code = 10.6 fL 9.5-12.9 90846-2) RDW-CV (test code = 16.2 % 12.0-15.5 H 788-0) RDW-SD (test code = 48.3 fL 39.0-49.9 04610-4) NRBC x10^3 (test code = See_Comment [Au tomated message] 4335694126) The system [employer] generated this result transmitted ref erence range: 10*3/?L. The reference range was not used to int erpret this result as normal/abnormal . NRBC/100 WBC (test code See_Comment [Au tomated message] = 1740847246) The system [facility] generated this result transmitted ref erence range: 0.0 - 10 .0 /100 WBCs. The reference range was not used to int erpret this result as normal/abnormal . IPF % (test code = 3.3 % 1.3-7.7 Platelet count 0084915731) measured by fluorescence me thod. Lab Interpretation Abnormal (test code = 05762-1) [facility] WITHOUT [id number] 01:42:07 Test Item Value Reference Range Interpretation Comments WBC (test code = See_Comment [Automated message] 6690-2) The system [employer] generated this result transmitted ref erence range: 4.30 - 1 1.10 10*3/?L. The reference range was not used to int erpret this result as normal/abnormal . RBC (test code = 789-8) See_Comment L [Au tomated message] The system [employer] generated this result transmitted ref erence range: [...] See_Comment L [Au tomated message] The system [employer] generated this result transmitted ref erence range: 166 - 35 8 10*3/?L. The reference range was not used to int erpret this result as normal/abnormal . MPV (test code = 10.6 fL 9.5-12.9 06437-7) RDW-CV (test code = 16.2 % 12.0-15.5 H 788-0) RDW-SD (test code = 48.3 fL 39.0-49.9 03055-5) NRBC x10^3 (test code = See_Comment [Au tomated message] 8566959206) The system [employer] generated this result transmitted ref erence range: 10*3/?L. The reference range was not used to int erpret this result as normal/abnormal . NRBC/100 WBC (test code See_Comment [Au tomated message] = 5045863339) The system [facility] generated this result transmitted ref erence range: 0.0 - 10 .0 /100 WBCs. The reference range was not used to int erpret this result as normal/abnormal . IPF % (test code = 3.3 % 1.3-7.7 Platelet count 9708390027) measured by fluorescence me thod. Lab Interpretation Abnormal (test code = 86531-5) [facility] METABOLIC PANEL (NA, K, CL, CO2, GLUCOSE, BUN, CREATININE, CA)2021-10-09 01:19:05 Test Item Value Reference Range Interpretation Comments NA (test code = 135 mmol/L 135-145 7945444071) K (test code = 4.0 mmol/L 3.5-5.0 0337036919) CL (test code = 106 mmol/L 98-108 5103018870) CO2 TOTAL (test code = 27 mmol/L 23-31 6684208028) AGAP (test code = 2-16 5210519793) BUN (test code = 8 mg/dL 7-23 6596754330) GLUCOSE (test code = 98 mg/dL 70-110 0041490970) CREATININE (test code = 0.49 mg/dL 0.50-1.04 L 8015362918) CALCIUM (test code = 7.6 mg/dL 8.6-10.6 L 8720535673) eGFR (test code = mL/min/1.73m2 1439421044) MICKY (test code = MICKY) Association of [...] tests). Lab Interpretation Abnormal (test code = 65008-4) [facility] METABOLIC PANEL (NA, K, CL, CO2, GLUCOSE, BUN, CREATININE, CA)2021-10-09 01:19:05 Test Item Value Reference Range Interpretation Comments NA (test code = 135 mmol/L 135-145 3653729246) K (test code = 4.0 mmol/L 3.5-5.0 5958548198) CL (test code = 106 mmol/L 98-108 2098126400) CO2 TOTAL (test code = 27 mmol/L 23-31 0496727050) AGAP (test code = 2-16 5947949000) BUN (test code = 8 mg/dL 7-23 8709617201) GLUCOSE (test code = 98 mg/dL 70-110 3466854221) CREATININE (test code = 0.49 mg/dL 0.50-1.04 L 4720386155) CALCIUM (test code = 7.6 mg/dL 8.6-10.6 L 7385533159) eGFR (test code = mL/min/1.73m2 4780806414) MICKY (test code = MICKY) Association of [...] tests). Lab Interpretation Abnormal (test code = 87566-6) [facility] METABOLIC PANEL (NA, K, CL, CO2, GLUCOSE, BUN, CREATININE, CA)2021-10-08 16:28:34 Test Item Value Reference Range Interpretation Comments NA (test code = 134 mmol/L 135-145 L 7486681730) K (test code = 4.1 mmol/L 3.5-5.0 1355307436) CL (test code = 106 mmol/L 98-108 6182603591) CO2 TOTAL (test code = 26 mmol/L 23-31 5108625390) AGAP (test code = 2-16 6122360977) BUN (test code = 6 mg/dL 7-23 L 7987185272) GLUCOSE (test code = 124 mg/dL 70-110 H 1072066360) CREATININE (test code = 0.48 mg/dL 0.50-1.04 L 3855200199) CALCIUM (test code = 8.0 mg/dL 8.6-10.6 L 0761512703) eGFR (test code = mL/min/1.73m2 0189196359) MICKY (test code = MICKY) Association of [...] tests). Lab Interpretation Abnormal (test code = 35370-6) [facility] METABOLIC PANEL (NA, K, CL, CO2, GLUCOSE, BUN, CREATININE, CA)2021-10-08 16:28:34 Test Item Value Reference Range Interpretation Comments NA (test code = 134 mmol/L 135-145 L 1529603977) K (test code = 4.1 mmol/L 3.5-5.0 8432261312) CL (test code = 106 mmol/L 98-108 5444299205) CO2 TOTAL (test code = 26 mmol/L 23-31 9006010118) AGAP (test code = 2-16 8239552312) BUN (test code = 6 mg/dL 7-23 L 2832147917) GLUCOSE (test code = 124 mg/dL 70-110 H 1864569409) CREATININE (test code = 0.48 mg/dL 0.50-1.04 L 7645097360) CALCIUM (test code = 8.0 mg/dL 8.6-10.6 L 3035886559) eGFR (test code = mL/min/1.73m2 1008486652) MICKY (test code = MICKY) Association of [...] tests). Lab Interpretation Abnormal (test code = 37895-9) [facility] METABOLIC PANEL (NA, K, CL, CO2, GLUCOSE, BUN, CREATININE, CA)2021-10-08 16:28:34 Test Item Value Reference Range Interpretation Comments NA (test code = 134 mmol/L 135-145 L 9141395735) K (test code = 4.1 mmol/L 3.5-5.0 5415280689) CL (test code = 106 mmol/L 98-108 3950101462) CO2 TOTAL (test code = 26 mmol/L 23-31 2574698961) AGAP (test code = 2-16 5966406467) BUN (test code = 6 mg/dL 7-23 L 6147686424) GLUCOSE (test code = 124 mg/dL 70-110 H 5278472064) CREATININE (test code = 0.48 mg/dL 0.50-1.04 L 3494502610) CALCIUM (test code = 8.0 mg/dL 8.6-10.6 L 6297540138) eGFR (test code = mL/min/1.73m2 2663418239) MICKY (test code = MICKY) Association of [...] tests). Lab Interpretation Abnormal (test code = 33319-7) [facility] WITHOUT [id number] 16:00:11 Test Item Value Reference Range Interpretation Comments WBC (test code = See_Comment [Automated message] 6690-2) The system [employer] generated this result transmitted ref erence range: 4.30 - 1 1.10 10*3/?L. The reference range was not used to int erpret this result as normal/abnormal . RBC (test code = 789-8) See_Comment L [Au tomated message] The system [employer] generated this result transmitted ref erence range: [...] See_Comment L [Au tomated message] The system [employer] generated this result transmitted ref erence range: 166 - 35 8 10*3/?L. The reference range was not used to int erpret this result as normal/abnormal . MPV (test code = 10.6 fL 9.5-12.9 26597-2) RDW-CV (test code = 15.9 % 12.0-15.5 H 788-0) RDW-SD (test code = 47.8 fL 39.0-49.9 44747-8) NRBC x10^3 (test code = See_Comment [Au tomated message] 8127473378) The system [employer] generated this result transmitted ref erence range: 10*3/?L. The reference range was not used to int erpret this result as normal/abnormal . NRBC/100 WBC (test code See_Comment [Au tomated message] = 9936132710) The system [employer] generated this result transmitted ref erence range: 0.0 - 10 .0 /100 WBCs. The reference range was not used to int erpret this result as normal/abnormal . IPF % (test code = 6.3 % 1.3-7.7 Platelet count 9811994934) measured by fluorescence me thod. Lab Interpretation Abnormal (test code = 11969-2) [facility] WITHOUT [id number] 16:00:11 Test Item Value Reference Range Interpretation Comments WBC (test code = See_Comment [Automated message] 6690-2) The system [employer] generated this result transmitted ref erence range: 4.30 - 1 1.10 10*3/?L. The reference range was not used to int erpret this result as normal/abnormal . RBC (test code = 789-8) See_Comment L [Au tomated message] The system [employer] generated this result transmitted ref erence range: [...] See_Comment L [Au tomated message] The system [facility] generated this result transmitted ref erence range: 166 - 35 8 10*3/?L. The reference range was not used to int erpret this result as normal/abnormal . MPV (test code = 10.6 fL 9.5-12.9 74391-7) RDW-CV (test code = 15.9 % 12.0-15.5 H 788-0) RDW-SD (test code = 47.8 fL 39.0-49.9 60066-3) NRBC x10^3 (test code = See_Comment [Au tomated message] 2807168645) The system [facility] generated this result transmitted ref erence range: 10*3/?L. The reference range was not used to int erpret this result as normal/abnormal . NRBC/100 WBC (test code See_Comment [Au tomated message] = 7405356485) The system [facility] generated this result transmitted ref erence range: 0.0 - 10 .0 /100 WBCs. The reference range was not used to int erpret this result as normal/abnormal . IPF % (test code = 6.3 % 1.3-7.7 Platelet count 9409595706) measured by fluorescence me thod. Lab Interpretation Abnormal (test code = 06671-1) [facility] WITHOUT [id number] 16:00:11 Test Item Value Reference Range Interpretation Comments WBC (test code = See_Comment [Automated message] 6690-2) The system [employer] generated this result transmitted ref erence range: 4.30 - 1 1.10 10*3/?L. The reference range was not used to int erpret this result as normal/abnormal . RBC (test code = 789-8) See_Comment L [Au tomated message] The system [employer] generated this result transmitted ref erence range: [...] See_Comment L [Au tomated message] The system [employer] generated this result transmitted ref erence range: 166 - 35 8 10*3/?L. The reference range was not used to int erpret this result as normal/abnormal . MPV (test code = 10.6 fL 9.5-12.9 36386-5) RDW-CV (test code = 15.9 % 12.0-15.5 H 788-0) RDW-SD (test code = 47.8 fL 39.0-49.9 71922-6) NRBC x10^3 (test code = See_Comment [Au tomated message] 7832492682) The system [employer] generated this result transmitted ref erence range: 10*3/?L. The reference range was not used to int erpret this result as normal/abnormal . NRBC/100 WBC (test code See_Comment [Au tomated message] = 5696288120) The system [employer] generated this result transmitted ref erence range: 0.0 - 10 .0 /100 WBCs. The reference range was not used to int erpret this result as normal/abnormal . IPF % (test code = 6.3 % 1.3-7.7 Platelet count 8889343659) measured by fluorescence me thod. Lab Interpretation Abnormal (test code = 92305-6) [facility] 15:36:16 Test Item Value Reference Range Interpretation Comments HGB A1C (test code = 5.3 % 4.0-5.7 4548-4) MICKY (test code = MICKY) Reference RangesNormal: <5.7%Prediabetes: 5.7 - 6.4%Diabetes: > 6.5% Lab Interpretation (test Normal code = 12917-3) [facility]-08 15:36:16 Test Item Value Reference Range Interpretation Comments HGB A1C (test code = 5.3 % 4.0-5.7 4548-4) MICKY (test code = MICKY) Reference RangesNormal: <5.7%Prediabetes: 5.7 - 6.4%Diabetes: > 6.5% Lab Interpretation (test Normal code = 20707-3) [facility]21-10-08 15:36:16 Test Item Value Reference Range Interpretation Comments HGB A1C (test code = 5.3 % 4.0-5.7 4548-4) MICKY (test code = MICKY) Reference RangesNormal: <5.7%Prediabetes: 5.7 - 6.4%Diabetes: > 6.5% Lab Interpretation (test Normal code = 09038-9) [facility] (NA, K, CL, CO2, GLUCOSE, BUN, CREATININE, CA)2021-10-08 13:25:28 Test Item Value Reference Range Interpretation Comments NA (test code = 135 mmol/L 135-145 1225926883) K (test code = 4.0 mmol/L 3.5-5.0 3767706708) CL (test code = 110 mmol/L 98-108 H 9905426415) CO2 TOTAL (test code = 23 mmol/L 23-31 1493441965) AGAP (test code = 2-16 0015510665) BUN (test code = 8 mg/dL 7-23 5996409609) GLUCOSE (test code = 98 mg/dL 70-110 4808284373) CREATININE (test code = 0.48 mg/dL 0.50-1.04 L 2231022329) CALCIUM (test code = 9.7 mg/dL 8.6-10.6 9307257142) eGFR (test code = mL/min/1.73m2 2139736063) MICKY (test code = MICKY) Association of [...] tests). Lab Interpretation Abnormal (test code = 78496-3) [facility] METABOLIC PANEL (NA, K, CL, CO2, GLUCOSE, BUN, CREATININE, CA)2021-10-08 13:25:28 Test Item Value Reference Range Interpretation Comments NA (test code = 135 mmol/L 135-145 0641207563) K (test code = 4.0 mmol/L 3.5-5.0 0772432326) CL (test code = 110 mmol/L 98-108 H 5728145258) CO2 TOTAL (test code = 23 mmol/L 23-31 2280830502) AGAP (test code = 2-16 9782422447) BUN (test code = 8 mg/dL 7-23 7395016089) GLUCOSE (test code = 98 mg/dL 70-110 0476224333) CREATININE (test code = 0.48 mg/dL 0.50-1.04 L 4117758825) CALCIUM (test code = 9.7 mg/dL 8.6-10.6 3705253203) eGFR (test code = mL/min/1.73m2 7989741225) MICKY (test code = MICKY) Association of [...] tests). Lab Interpretation Abnormal (test code = 00501-7) [facility] METABOLIC PANEL (NA, K, CL, CO2, GLUCOSE, BUN, CREATININE, CA)2021-10-08 13:25:28 Test Item Value Reference Range Interpretation Comments NA (test code = 135 mmol/L 135-145 2422084002) K (test code = 4.0 mmol/L 3.5-5.0 3033747502) CL (test code = 110 mmol/L 98-108 H 3640933401) CO2 TOTAL (test code = 23 mmol/L 23-31 7844453472) AGAP (test code = 2-16 3017207469) BUN (test code = 8 mg/dL 7-23 7850331577) GLUCOSE (test code = 98 mg/dL 70-110 7056183758) CREATININE (test code = 0.48 mg/dL 0.50-1.04 L 4873008613) CALCIUM (test code = 9.7 mg/dL 8.6-10.6 0954682914) eGFR (test code = mL/min/1.73m2 4257545805) MICKY (test code = MICKY) Association of [...] tests). Lab Interpretation Abnormal (test code = 23350-2) [facility]:15 Test Item Value Reference Range Interpretation Comments MAGNESIUM (test code = 3995973262) 1.4 mg/dL 1.7-2.4 L Lab Interpretation (test code = Abnormal 72188-4) [facility] 13:19:15 Test Item Value Reference Range Interpretation Comments PHOSPHORUS (test code = 9479648357) 4.3 mg/dL 2.5-5.0 Lab Interpretation (test code = Normal 22764-6) [facility]58398[facility] (ALB,T.PRO,BILI T,BU/BC,ALT,AST,ALK PHOS)2021-10-08 13:19:15 Test Item Value Reference Range Interpretation Comments TOTAL BILI (test code = 4270972243) 1.5 mg/dL 0.1-1.1 H BILI UNCON (test code = 3955188796) 1.3 mg/dL 0.1-1.1 H BILI CONJ (test code = 7177229280) 0.0 mg/dL 0.0-0.3 T PROTEIN (test code = 2524807320) 4.9 g/dL 6.3-8.2 L ALBUMIN (test code = 4169040621) 2.7 g/dL 3.5-5.0 L ALK PHOS (test code = 1804167483) 46 U/L 34-122 ALTv (test code = 1742-6) 13 U/L 5-35 AST(SGOT) (test code = 5790560956) 24 U/L 13-40 Lab Interpretation (test code = Abnormal 30219-7) [facility]19:15 Test Item Value Reference Range Interpretation Comments MAGNESIUM (test code = 9366214968) 1.4 mg/dL 1.7-2.4 L Lab Interpretation (test code = Abnormal 70373-9) [facility] 13:19:15 Test Item Value Reference Range Interpretation Comments PHOSPHORUS (test code = 6873045696) 4.3 mg/dL 2.5-5.0 Lab Interpretation (test code = Normal 35289-0) [facility]26655[facility] (ALB,T.PRO,BILI T,BU/BC,ALT,AST,ALK PHOS)2021-10-08 13:19:15 Test Item Value Reference Range Interpretation Comments TOTAL BILI (test code = 3650673491) 1.5 mg/dL 0.1-1.1 H BILI UNCON (test code = 9360305955) 1.3 mg/dL 0.1-1.1 H BILI CONJ (test code = 1187784130) 0.0 mg/dL 0.0-0.3 T PROTEIN (test code = 9778609814) 4.9 g/dL 6.3-8.2 L ALBUMIN (test code = 6057851972) 2.7 g/dL 3.5-5.0 L ALK PHOS (test code = 8880663145) 46 U/L 34-122 ALTv (test code = 1742-6) 13 U/L 5-35 AST(SGOT) (test code = 8839343992) 24 U/L 13-40 Lab Interpretation (test code = Abnormal 96328-2) [facility] 13:19:15 Test Item Value Reference Range Interpretation Comments MAGNESIUM (test code = 3482688369) 1.4 mg/dL 1.7-2.4 L Lab Interpretation (test code = Abnormal 11772-6) [facility] 13:19:15 Test Item Value Reference Range Interpretation Comments PHOSPHORUS (test code = 2738879257) 4.3 mg/dL 2.5-5.0 Lab Interpretation (test code = Normal 83550-4) [facility]37114[facility] (ALB,T.PRO,BILI T,BU/BC,ALT,AST,ALK PHOS)2021-10-08 13:19:15 Test Item Value Reference Range Interpretation Comments TOTAL BILI (test code = 2055434806) 1.5 mg/dL 0.1-1.1 H BILI UNCON (test code = 2329255742) 1.3 mg/dL 0.1-1.1 H BILI CONJ (test code = 5986723408) 0.0 mg/dL 0.0-0.3 T PROTEIN (test code = 8426137579) 4.9 g/dL 6.3-8.2 L ALBUMIN (test code = 8136653519) 2.7 g/dL 3.5-5.0 L ALK PHOS (test code = 1779206590) 46 U/L 34-122 ALTv (test code = 1742-6) 13 U/L 5-35 AST(SGOT) (test code = 2981792287) 24 U/L 13-40 Lab Interpretation (test code = Abnormal 17134-4) [facility] WITH [id number] 11:26:11 Test Item Value Reference Range Interpretation Comments WBC (test code = See_Comment [Automated 2590-2) message] The sy stem which generated this result transmitted reference range : 4.30 - 11.10 10*3/?L. The reference range was not used to interpret this result as normal/abnormal . RBC (test code = See_Comment L [Automated 969-8) message] The sy stem which generated this [...] RDW-SD (test code = 46.1 fL 39.0-49.9 58839-0) RDW-CV (test code = 15.2 % 12.0-15.5 788-0) PLT (test code = See_Comment L [Automated 777-3) message] The sy stem which generated this result transmitted reference range : 166 - 358 10*3/ ?L. The reference r susan was not used to interpret this result as normal/abnormal . MPV (test code = 11.0 fL 9.5-12.9 10190-5) IPF % (test code = 4.9 % 1.3-7.7 Platelet count 2502617485) measured by fluorescence method. NRBC/100 WBC (test See_Comment [Automat ed code = 0338891335) message] The system which generated this result transmitted reference range : 0.0 - 10.0 /100 WBCs. The refer ence range was not u sed to interpret th is result as normal/abnormal . NRBC x10^3 (test code <0.01 See_Comment [Auto mated = 8110883430) message] The s ystem which generated this result transmitted reference range : 10*3/?L. The reference range was not used to interpret this result as normal/abnormal . GRAN MAT (NEUT) % 84.1 % (test code = 770-8) IMM GRAN % (test code 0.60 % = 5435594341) LYMPH % (test code = 4.2 % 736-9) MONO % (test code = 11.0 % 5905-5) EOS % (test code = 0.0 % 713-8) BASO % (test code = 0.1 % 706-2) GRAN MAT x10^3(ANC) 6.05 10*3/uL 1.88-7.09 (test code = 2860998986) IMM GRAN x10^3 (test 0.04 10*3/uL 0.00-0.06 code = 6490321956) LYMPH x10^3 (test code 0.30 10*3/uL 1.32-3.29 L = 731-0) MONO x10^3 (test code 0.79 10*3/uL 0.33-0.92 = 742-7) EOS x10^3 (test code = <0.03 0.03-0.39 L 711-2) BASO x10^3 (test code <0.03 0.01-0.07 = 704-7) POLYCHROMASIA (test 2+ See_Comment [Automa ramana code = 13101-7) message] The system which generated this result transmitted reference range : 2+. The referen ce range was not u sed to interpret th is result as normal/abnormal . Lab Interpretation Abnormal (test code = 93742-4) [facility] WITH [id number] 11:26:11 Test Item Value Reference Range Interpretation [...] RDW-SD (test code = 46.1 fL 39.0-49.9 67108-6) RDW-CV (test code = 15.2 % 12.0-15.5 788-0) PLT (test code = See_Comment L [Automated 777-3) message] The sy stem which generated this result transmitted reference range : 166 - 358 10*3/ ?L. The reference r susan was not used to interpret this result as normal/abnormal . MPV (test code = 11.0 fL 9.5-12.9 72975-6) IPF % (test code = 4.9 % 1.3-7.7 Platelet count 7752321704) measured by fluorescence method. NRBC/100 WBC (test See_Comment [Automat ed code = 9048331328) message] The system which generated this result transmitted reference range : 0.0 - 10.0 /100 WBCs. The refer ence range was not u sed to interpret th is result as normal/abnormal . NRBC x10^3 (test code <0.01 See_Comment [Auto mated = 6579490577) message] The s ystem which generated this result transmitted reference range : 10*3/?L. The reference range was not used to interpret this result as normal/abnormal . GRAN MAT (NEUT) % 84.1 % (test code = 770-8) IMM GRAN % (test code 0.60 % = 7069104165) LYMPH % (test code = 4.2 % 736-9) MONO % (test code = 11.0 % 5905-5) EOS % (test code = 0.0 % 713-8) BASO % (test code = 0.1 % 706-2) GRAN MAT x10^3(ANC) 6.05 10*3/uL 1.88-7.09 (test code = 8818647325) IMM GRAN x10^3 (test 0.04 10*3/uL 0.00-0.06 code = 7618284548) LYMPH x10^3 (test code 0.30 10*3/uL 1.32-3.29 L = 731-0) MONO x10^3 (test code 0.79 10*3/uL 0.33-0.92 = 742-7) EOS x10^3 (test code = <0.03 0.03-0.39 L 711-2) BASO x10^3 (test code <0.03 0.01-0.07 = 704-7) POLYCHROMASIA (test 2+ See_Comment [Automa ramana code = 28939-2) message] The system which generated this result transmitted reference range : 2+. The referen ce range was not u sed to interpret th is result as normal/abnormal . Lab Interpretation Abnormal (test code = 01862-8) [facility] WITH [id number] 11:26:11 Test Item Value Reference Range Interpretation [...] RDW-SD (test code = 46.1 fL 39.0-49.9 83719-8) RDW-CV (test code = 15.2 % 12.0-15.5 788-0) PLT (test code = See_Comment L [Automated 777-3) message] The sy stem which generated this result transmitted reference range : 166 - 358 10*3/ ?L. The reference r susan was not used to interpret this result as normal/abnormal . MPV (test code = 11.0 fL 9.5-12.9 02305-6) IPF % (test code = 4.9 % 1.3-7.7 Platelet count 5387501845) measured by fluorescence method. NRBC/100 WBC (test See_Comment [Automat ed code = 4258963068) message] The system which generated this result transmitted reference range : 0.0 - 10.0 /100 WBCs. The refer ence range was not u sed to interpret th is result as normal/abnormal . NRBC x10^3 (test code <0.01 See_Comment [Auto mated = 0776025240) message] The s ystem which generated this result transmitted reference range : 10*3/?L. The reference range was not used to interpret this result as normal/abnormal . GRAN MAT (NEUT) % 84.1 % (test code = 770-8) IMM GRAN % (test code 0.60 % = 0114157193) LYMPH % (test code = 4.2 % 736-9) MONO % (test code = 11.0 % 5905-5) EOS % (test code = 0.0 % 713-8) BASO % (test code = 0.1 % 706-2) GRAN MAT x10^3(ANC) 6.05 10*3/uL 1.88-7.09 (test code = 2303528543) IMM GRAN x10^3 (test 0.04 10*3/uL 0.00-0.06 code = 3395742063) LYMPH x10^3 (test code 0.30 10*3/uL 1.32-3.29 L = 731-0) MONO x10^3 (test code 0.79 10*3/uL 0.33-0.92 = 742-7) EOS x10^3 (test code = <0.03 0.03-0.39 L 711-2) BASO x10^3 (test code <0.03 0.01-0.07 = 704-7) POLYCHROMASIA (test 2+ See_Comment [Automa ramana code = 16741-1) message] The system which generated this result transmitted reference range : 2+. The referen ce range was not u sed to interpret th is result as normal/abnormal . Lab Interpretation Abnormal (test code = 91208-9) [facility] / [id number] 11:04:07 Test Item Value Reference Range Interpretation Comments PROTIME PATIENT (test See_Comment L [Auto mated message] code = 5964-2) The system [employer] generated this result transmitted ref erence range: 12.0 - 1 4.7 Seconds. The reference range was not used to int erpret this result as normal/abnormal . INR (test code = 6301-6) Nor mal INR <1.1; Warfarin Therap eutic range 2.0 to 3. 0 or 2.5 to 3.5, dep ending upon the indica tions. Lab Interpretation (test Abnormal code = 89891-1) [facility] / [id number] 11:04:07 Test Item Value Reference Range Interpretation Comments PROTIME PATIENT (test See_Comment L [Auto mated message] code = 5964-2) The system [employer] generated this result transmitted ref erence range: 12.0 - 1 4.7 Seconds. The reference range was not used to int erpret this result as normal/abnormal . INR (test code = 6301-6) Nor mal INR <1.1; Warfarin Therap eutic range 2.0 to 3. 0 or 2.5 to 3.5, dep ending upon the indica tions. Lab Interpretation (test Abnormal code = 40164-9) [facility] / [id number] 11:04:07 Test Item Value Reference Range Interpretation Comments PROTIME PATIENT (test See_Comment L [Auto mated message] code = 5964-2) The system [employer] generated this result transmitted ref erence range: 12.0 - 1 4.7 Seconds. The reference range was not used to int erpret this result as normal/abnormal . INR (test code = 6301-6) Nor mal INR <1.1; Warfarin Therap eutic range 2.0 to 3. 0 or 2.5 to 3.5, dep ending upon the indica tions. Lab Interpretation (test Abnormal code = 97632-1) [facility] 10:56:58 Test Item Value Reference Range Interpretation Comments Fibrinogen (test code = 9720720851) 233 mg/dL 167-453 Lab Interpretation (test code = Normal 46783-8) [facility] 10:56:58 Test Item Value Reference Range Interpretation Comments Fibrinogen (test code = 4757643501) 233 mg/dL 167-453 Lab Interpretation (test code = Normal 33579-5) [facility] 10:56:58 Test Item Value Reference Range Interpretation Comments Fibrinogen (test code = 3886022276) 233 mg/dL 167-453 Lab Interpretation (test code = Normal 88415-5) [facility] [id number] 10:55:23 Test Item Value Reference Range Interpretation Comments APTT Patient (test code = See_Comment [ Automated message] 3173-2) The system [employer] generated this result transmitted ref erence range: 26 - 36 Seconds. The re ference range was not u sed to interpret this result as normal/abnor mal. Lab Interpretation (test Normal code = 62292-2) [facility] [id number] 10:55:23 Test Item Value Reference Range Interpretation Comments APTT Patient (test code = See_Comment [ Automated message] 3173-2) The system [employer] generated this result transmitted ref erence range: 26 - 36 Seconds. The re ference range was not u sed to interpret this result as normal/abnor mal. Lab Interpretation (test Normal code = 90823-7) [facility] [id number] 10:55:23 Test Item Value Reference Range Interpretation Comments APTT Patient (test code = See_Comment [ Automated message] 3173-2) The system [employer] generated this result transmitted ref erence range: 26 - 36 Seconds. The re ference range was not u sed to interpret this result as normal/abnor mal. Lab Interpretation (test Normal code = 48134-8) [facility] + Lactic [id number] 10:32:44 Test Item Value Reference Range Interpretation Comments PH (test code = 2) 7.35-7.45 PCO2 (test code = See_Comment [Automate d 3555938054) message] The sy stem which generated this result transmitted reference range : 35 - 45 mmHg. The reference range was not used to interpret this result as normal/abnormal . PO2 (test code = See_Comment H [Automated 4434687118) message] The sy stem which generated this result transmitted reference range : 80 - 100 mmHg. The reference range was not used to interpret this result as normal/abnormal . HCO3 (test code = See_Comment [Automate d 3567084299) message] The sy stem which generated this result transmitted reference range : 22 - 26 mEq/L. The reference range was not used to interpret this result as normal/abnormal . BE (test code = See_Comment [Automated 5266649685) message] The sy stem which generated this result transmitted reference range : -3.0 - 3.0 mEq/ L. The reference r susan was not used to interpret this result as normal/abnormal . THB (test code = 7.7 g/dL 12.0-16.0 LL 9820342784) %O2HB (test code = 97.4 % 94.0-99.0 4289867915) %COHB ART (test code = 1.4 % 0.0-1.5 8857175018) %METHB ART (test code = 0.3 % 0.4-1.5 L 6559582979) VOL%O2 ART (test code = 11.0 % 15.0-23.0 L 5125758597) NA (test code = 132 mmol/L 135-145 L 7155763974) K+ (test code = 3.9 mmol/L 3.5-5.0 6156759658) AC CA IONZ (test code = 5.40 mg/dL 4.50-5.30 H 9033033099) GLUCOSE (test code = 98 mg/dL 70-110 5635274789) LACTIC ACID (test code 1.16 mmol/L 0.50-2.20 = 0884919706) Lab Interpretation Abnormal (test code = 83524-8) [facility] + Lactic [id number] 10:32:44 Test Item Value Reference Range Interpretation Comments PH (test code = 2) 7.35-7.45 PCO2 (test code = See_Comment [Automate d 9146754414) message] The sy stem which generated this result transmitted reference range : 35 - 45 mmHg. The reference range was not used to interpret this result as normal/abnormal . PO2 (test code = See_Comment H [Automated 4621647399) message] The sy stem which generated this result transmitted reference range : 80 - 100 mmHg. The reference range was not used to interpret this result as normal/abnormal . HCO3 (test code = See_Comment [Automate d 9644582569) message] The sy stem which generated this result transmitted reference range : 22 - 26 mEq/L. The reference range was not used to interpret this result as normal/abnormal . BE (test code = See_Comment [Automated 7389072959) message] The sy stem which generated this result transmitted reference range : -3.0 - 3.0 mEq/ L. The reference r susan was not used to interpret this result as normal/abnormal . THB (test code = 7.7 g/dL 12.0-16.0 LL 4399434808) %O2HB (test code = 97.4 % 94.0-99.0 8270732112) %COHB ART (test code = 1.4 % 0.0-1.5 2732958011) %METHB ART (test code = 0.3 % 0.4-1.5 L 3848106312) VOL%O2 ART (test code = 11.0 % 15.0-23.0 L 9979912240) NA (test code = 132 mmol/L 135-145 L 9967698014) K+ (test code = 3.9 mmol/L 3.5-5.0 4319719068) AC CA IONZ (test code = 5.40 mg/dL 4.50-5.30 H 0914778670) GLUCOSE (test code = 98 mg/dL 70-110 4302279460) LACTIC ACID (test code 1.16 mmol/L 0.50-2.20 = 9372665661) Lab Interpretation Abnormal (test code = 15868-3) [facility] Lactic [id number] 10:32:44 Test Item Value Reference Range Interpretation Comments PH (test code = 2) 7.35-7.45 PCO2 (test code = See_Comment [Automate d 6653551695) message] The sy stem which generated this result transmitted reference range : 35 - 45 mmHg. The reference range was not used to interpret this result as normal/abnormal . PO2 (test code = See_Comment H [Automated 5030147142) message] The sy stem which generated this result transmitted reference range : 80 - 100 mmHg. The reference range was not used to interpret this result as normal/abnormal . HCO3 (test code = See_Comment [Automate d 2341595118) message] The sy stem which generated this result transmitted reference range : 22 - 26 mEq/L. The reference range was not used to interpret this result as normal/abnormal . BE (test code = See_Comment [Automated 0267810777) message] The sy stem which generated this result transmitted reference range : -3.0 - 3.0 mEq/ L. The reference r susan was not used to interpret this result as normal/abnormal . THB (test code = 7.7 g/dL 12.0-16.0 LL 6896001824) %O2HB (test code = 97.4 % 94.0-99.0 5965154541) %COHB ART (test code = 1.4 % 0.0-1.5 5307811037) %METHB ART (test code = 0.3 % 0.4-1.5 L 4695072814) VOL%O2 ART (test code = 11.0 % 15.0-23.0 L 3825110273) NA (test code = 132 mmol/L 135-145 L 9069773741) K+ (test code = 3.9 mmol/L 3.5-5.0 8878428327) AC CA IONZ (test code = 5.40 mg/dL 4.50-5.30 H 7633455109) GLUCOSE (test code = 98 mg/dL 70-110 2366541737) LACTIC ACID (test code 1.16 mmol/L 0.50-2.20 = 7265894167) Lab Interpretation Abnormal (test code = 83845-3) [facility] / [id number] 10:25:01 Test Item Value Reference Range Interpretation Comments PROTIME PATIENT (test See_Comment L [Auto mated message] code = 5964-2) The system [employer] generated this result transmitted ref erence range: 12.0 - 1 4.7 Seconds. The reference range was not used to int erpret this result as normal/abnormal . INR (test code = 6301-6) Nor mal INR <1.1; Warfarin Therap eutic range 2.0 to 3. 0 or 2.5 to 3.5, dep ending upon the indica tions. Lab Interpretation (test Abnormal code = 62176-8) [facility] / [id number] 10:25:01 Test Item Value Reference Range Interpretation Comments PROTIME PATIENT (test See_Comment L [Auto mated message] code = 5964-2) The system [employer] generated this result transmitted ref erence range: 12.0 - 1 4.7 Seconds. The reference range was not used to int erpret this result as normal/abnormal . INR (test code = 6301-6) Nor mal INR <1.1; Warfarin Therap eutic range 2.0 to 3. 0 or 2.5 to 3.5, dep ending upon the indica tions. Lab Interpretation (test Abnormal code = 86376-3) [facility] / [id number] 10:25:01 Test Item Value Reference Range Interpretation Comments PROTIME PATIENT (test See_Comment L [Auto mated message] code = 5964-2) The system [employer] generated this result transmitted ref erence range: 12.0 - 1 4.7 Seconds. The reference range was not used to int erpret this result as normal/abnormal . INR (test code = 6301-6) Nor mal INR <1.1; Warfarin Therap eutic range 2.0 to 3. 0 or 2.5 to 3.5, dep ending upon the indica tions. Lab Interpretation (test Abnormal code = 96595-8) [facility] (in units)~2021-10-08 09:48:16 Test Item Value Reference Range Interpretation Comments Unit Blood Type (test A Pos code = 4410) ISBT Blood Type Code (test code = 086774) Unit Number (test code [id number] = 4411) Blood Expiration Date & Time (test code = 497964) Status Information Issued (test code = 4412) Product Identification FFP (test code = 4413) Product Code (test [id number] Performed at [facility] code = 4414) Laboratory Services - [facility] Blood [address] [address]Vqnr Free: [phone] A No. [id number] [facility] ([facility] units)~2021-10-08 09:48:16 Test Item Value Reference Range Interpretation Comments Unit Blood Type (test A Pos code = 4410) ISBT Blood Type Code (test code = 977883) Unit Number (test code [id number] = 4411) Blood Expiration Date & Time (test code = 303763) Status Information Issued (test code = 4412) Product Identification FFP (test code = 4413) Product Code (test V1666U65 Performed at [facility] code = 4414) Laboratory Services - [facility] Blood [address] [place] [address]Vsrg Free: [phone] A No. [id number] [facility] (in units)~2021-10-08 09:48:16 Test Item Value Reference Range Interpretation Comments Unit Blood Type (test A Pos code = 4410) ISBT Blood Type Code (test code = 745366) Unit Number (test code [id number] = 4411) Blood Expiration Date & Time (test code = 818703) Status Information Issued (test code = 4412) Product Identification FFP (test code = 4413) Product Code (test [id number] Performed at [facility] code = 4414) Laboratory Services - [facility] Blood [address] [address]Dutj Free: [phone] A No. [id number] [facility] Packed RBC (in units)2021-10-08 09:47:11 Test Item Value Reference Range Interpretation Comments Cross Match Result Compatible (test code = 4409) ISBT Blood Type Code (test code = 141579) Unit Blood Type (test A Pos code = 4410) Unit Number (test [id number] code = 4411) Blood Expiration Date & Time (test code = 841909) Status Information Issued (test code = 4412) Product Red Blood Cells Identification (test code = 4413) Product Code (test [id number] Performed at [facility] code = 4414) Laboratory Services - [facility] Blood [address] [address]Tidr Free: [phone] A No. [id number] [facility] Packed RBC (in units)2021-10-08 09:47:11 Test Item Value Reference Range Interpretation Comments Cross Match Result Compatible (test code = 4409) ISBT Blood Type Code (test code = 067528) Unit Blood Type (test A Pos code = 4410) Unit Number (test [id number] code = 4411) Blood Expiration Date & Time (test code = 339572) Status Information Issued (test code = 4412) Product Red Blood Cells Identification (test code = 4413) Product Code (test [id number] Performed at [facility] code = 4414) Laboratory Services - [facility] Blood [address] [address]Pkgc Free: [phone] A No. [id number] [facility] Packed RBC (in units)2021-10-08 09:47:11 Test Item Value Reference Range Interpretation Comments Cross Match Result Compatible (test code = 4409) ISBT Blood Type Code (test code = 250104) Unit Blood Type (test A Pos code = 4410) Unit Number (test [id number] code = 4411) Blood Expiration Date & Time (test code = 064542) Status Information Issued (test code = 4412) Product Red Blood Cells Identification (test code = 4413) Product Code (test [id number] Performed at [facility] code = 4414) Laboratory Services - [facility] Blood [address] [place] [address]Rdnh Free: [phone] A No. [id number] [facility]2022-[facility]-24 08:38:17 FibrinogenComment: PT/INR failed. Fib autoverified. Need new order. Spoke to MCKENZIE Mireles/Dr. Streeter. This is a corrected result. ?Previous result was 165 mg/dL on 10/08/[address] [place] [address] [facility] [id number] 08:38:17FibrinogenComment: PT/INR failed. Fib autoverified. Need new order. Spoke to MCKENZIE Mireles/Dr. Streeter. This is a corrected result. ?Previous result was 165 mg/dL on 10/08/[address] [place] [address] [facility] HospitalFIBRINOGEN2022-06-24 08:38:17FibrinogenComment: PT/INR failed. Fib autoverified. Need new order. Spoke to MCKENZIE Mireles/Dr. Streeter. This is a corrected result. ?Previous result was 165 mg/dL on 10/08/[address] [place] [address] [facility] SERVICESCu[facility] HospitalCBC WITHOUT [id number] 08:34:10 Test Item Value Reference Range Interpretation Comments WBC (test code = See_Comment [Automated message] 6690-2) The system [employer] generated this result transmitted ref erence range: 4.30 - 1 1.10 10*3/?L. The reference range was not used to int erpret this result as normal/abnormal . RBC (test code = 789-8) See_Comment L [Au tomated message] The system [employer] generated this result transmitted ref erence range: [...] See_Comment L [Au tomated message] The system [employer] generated this result transmitted ref erence range: 166 - 35 8 10*3/?L. The reference range was not used to int erpret this result as normal/abnormal . MPV (test code = 11.4 fL 9.5-12.9 86032-8) RDW-CV (test code = 14.8 % 12.0-15.5 788-0) RDW-SD (test code = 47.3 fL 39.0-49.9 34978-6) NRBC x10^3 (test code = <0.01 See_Comment [Au tomated message] 5522979156) The system [employer] generated this result transmitted ref erence range: 10*3/?L. The reference range was not used to int erpret this result as normal/abnormal . NRBC/100 WBC (test code See_Comment [Au tomated message] = 8527402860) The system [employer] generated this result transmitted ref erence range: 0.0 - 10 .0 /100 WBCs. The reference range was not used to int erpret this result as normal/abnormal . IPF % (test code = 5.9 % 1.3-7.7 Platelet count [id number]) measured by fluorescence me thod. Lab Interpretation Abnormal (test code = 67347-7) [facility] WITHOUT [id number] 08:34:10 Test Item Value Reference Range Interpretation Comments WBC (test code = See_Comment [Automated message] 6690-2) The system [employer] generated this result transmitted ref erence range: 4.30 - 1 1.10 10*3/?L. The reference range was not used to int erpret this result as normal/abnormal . RBC (test code = 789-8) See_Comment L [Au tomated message] The system [employer] generated this result transmitted ref erence range: [...] See_Comment L [Au tomated message] The system [employer] generated this result transmitted ref erence range: 166 - 35 8 10*3/?L. The reference range was not used to int erpret this result as normal/abnormal . MPV (test code = 11.4 fL 9.5-12.9 87374-1) RDW-CV (test code = 14.8 % 12.0-15.5 788-0) RDW-SD (test code = 47.3 fL 39.0-49.9 44811-0) NRBC x10^3 (test code = <0.01 See_Comment [Au tomated message] 6695615620) The system [employer] generated this result transmitted ref erence range: 10*3/?L. The reference range was not used to int erpret this result as normal/abnormal . NRBC/100 WBC (test code See_Comment [Au tomated message] = 3366596995) The system [facility] generated this result transmitted ref erence range: 0.0 - 10 .0 /100 WBCs. The reference range was not used to int erpret this result as normal/abnormal . IPF % (test code = 5.9 % 1.3-7.7 Platelet count [id number]) measured by fluorescence me thod. Lab Interpretation Abnormal (test code = 37485-7) [facility] WITHOUT [id number] 08:34:10 Test Item Value Reference Range Interpretation Comments WBC (test code = See_Comment [Automated message] 6690-2) The system [employer] generated this result transmitted ref erence range: 4.30 - 1 1.10 10*3/?L. The reference range was not used to int erpret this result as normal/abnormal . RBC (test code = 789-8) See_Comment L [Au tomated message] The system [employer] generated this result transmitted ref erence range: [...] See_Comment L [Au tomated message] The system [employer] generated this result transmitted ref erence range: 166 - 35 8 10*3/?L. The reference range was not used to int erpret this result as normal/abnormal . MPV (test code = 11.4 fL 9.5-12.9 96648-6) RDW-CV (test code = 14.8 % 12.0-15.5 788-0) RDW-SD (test code = 47.3 fL 39.0-49.9 30190-1) NRBC x10^3 (test code = <0.01 See_Comment [Au tomated message] 9540228067) The system [employer] generated this result transmitted ref erence range: 10*3/?L. The reference range was not used to int erpret this result as normal/abnormal . NRBC/100 WBC (test code See_Comment [Au tomated message] = 4682623919) The system [facility] generated this result transmitted ref erence range: 0.0 - 10 .0 /100 WBCs. The reference range was not used to int erpret this result as normal/abnormal . IPF % (test code = 5.9 % 1.3-7.7 Platelet count 5780286037) measured by fluorescence me thod. Lab Interpretation Abnormal (test code = 34751-5) [facility] Cryoprecipitate (in units)~2021-10-08 07:24:24 Test Item Value Reference Range Interpretation Comments Unit Blood Type (test A code = 4410) ISBT Blood Type Code A000 (test code = 294522) Unit Number (test [id number] code = 4411) Blood Expiration Date & Time (test code = 097028) Status Information Issued (test code = 4412) Product Cryoprecipitate Identification (test code = 4413) Product Code (test [id number] Performed at [facility] code = 4414) Laboratory Services - [facility] Blood [address] [address]Id[address] Free: [phone] A No. [id number] [facility] Cryoprecipitate (in units)~2021-10-08 07:24:24 Test Item Value Reference Range Interpretation Comments Unit Blood Type (test A code = 4410) ISBT Blood Type Code A000 (test code = 742624) Unit Number (test [id number] code = 4411) Blood Expiration Date & Time (test code = 338806) Status Information Issued (test code = 4412) Product Cryoprecipitate Identification (test code = 4413) Product Code (test [id number] Performed at [facility] code = 4414) Laboratory Services - [facility] Blood [address] [address]Huxk Free: [phone] A No. [id number] [facility] Cryoprecipitate (in units)~2021-10-08 07:24:24 Test Item Value Reference Range Interpretation Comments Unit Blood Type (test A code = 4410) ISBT Blood Type Code A000 (test code = 907177) Unit Number (test [id number] code = 4411) Blood Expiration Date & Time (test code = 132591) Status Information Issued (test code = 4412) Product Cryoprecipitate Identification (test code = 4413) Product Code (test [id number] Performed at [facility] code = 4414) Laboratory Services - [facility] Blood [address] [place] [address]Pkvt Free: [phone] A No. [id number] [facility] METABOLIC PANEL (NA, K, CL, CO2, GLUCOSE, BUN, CREATININE, CA)2021-10-08 07:14:23 Test Item Value Reference Range Interpretation Comments NA (test code = 134 mmol/L 135-145 L 4926599881) K (test code = 4.6 mmol/L 3.5-5.0 4538654853) CL (test code = 109 mmol/L 98-108 H 5958980746) CO2 TOTAL (test code = 21 mmol/L 23-31 L 0178566567) AGAP (test code = 2-16 7861803809) BUN (test code = 9 mg/dL 7-23 7111334333) GLUCOSE (test code = 206 mg/dL 70-110 H 6216062653) CREATININE (test code = 0.61 mg/dL 0.50-1.04 2627074944) CALCIUM (test code = 7.5 mg/dL 8.6-10.6 L 6573144790) eGFR (test code = mL/min/1.73m2 0046041494) MICKY (test code = MICKY) Association of [...] tests). Lab Interpretation Abnormal (test code = 70100-6) [facility] (NA, K, CL, CO2, GLUCOSE, BUN, CREATININE, CA)2021-10-08 07:14:23 Test Item Value Reference Range Interpretation Comments NA (test code = 134 mmol/L 135-145 L 2595696068) K (test code = 4.6 mmol/L 3.5-5.0 8036129917) CL (test code = 109 mmol/L 98-108 H 1816872354) CO2 TOTAL (test code = 21 mmol/L 23-31 L 5275285816) AGAP (test code = 2-16 7911121362) BUN (test code = 9 mg/dL 7-23 7734995606) GLUCOSE (test code = 206 mg/dL 70-110 H 2949807067) CREATININE (test code = 0.61 mg/dL 0.50-1.04 0701109907) CALCIUM (test code = 7.5 mg/dL 8.6-10.6 L 2637055000) eGFR (test code = mL/min/1.73m2 1884843060) MICKY (test code = MICKY) Association of [...] tests). Lab Interpretation Abnormal (test code = 74214-9) [facility] METABOLIC PANEL (NA, K, CL, CO2, GLUCOSE, BUN, CREATININE, CA)2021-10-08 07:14:23 Test Item Value Reference Range Interpretation Comments NA (test code = 134 mmol/L 135-145 L 7886159984) K (test code = 4.6 mmol/L 3.5-5.0 5761529035) CL (test code = 109 mmol/L 98-108 H 4324176793) CO2 TOTAL (test code = 21 mmol/L 23-31 L 5133823445) AGAP (test code = 2-16 0664271023) BUN (test code = 9 mg/dL 7-23 6959159225) GLUCOSE (test code = 206 mg/dL 70-110 H 8015651875) CREATININE (test code = 0.61 mg/dL 0.50-1.04 4696351889) CALCIUM (test code = 7.5 mg/dL 8.6-10.6 L 8073086683) eGFR (test code = mL/min/1.73m2 5813473480) MICKY (test code = MICKY) Association of [...] tests). Lab Interpretation Abnormal (test code = 87504-8) [facility]2022-06-24 06:46:57 Test Item Value Reference Range Interpretation Comments Fibrinogen (test code = 9216068489) 174 mg/dL 167-453 Lab Interpretation (test code = Normal 89915-7) [facility]2022-06-24 06:46:57 Test Item Value Reference Range Interpretation Comments Fibrinogen (test code = 1999634513) 174 mg/dL 167-453 Lab Interpretation (test code = Normal 95255-1) [facility]2022-06-24 06:46:57 Test Item Value Reference Range Interpretation Comments Fibrinogen (test code = 2755404131) 174 mg/dL 167-453 Lab Interpretation (test code = Normal 58454-8) [facility]2022-06-24 06:45:07 Test Item Value Reference Range Interpretation Comments Fibrinogen (test code = 7502065767) 196 mg/dL 167-453 Lab Interpretation (test code = Normal 73117-8) [facility]2022-06-24 06:45:07 Test Item Value Reference Range Interpretation Comments Fibrinogen (test code = 1812969857) 196 mg/dL 167-453 Lab Interpretation (test code = Normal 70893-3) [facility]2022-06-24 06:45:07 Test Item Value Reference Range Interpretation Comments Fibrinogen (test code = 3968692602) 196 mg/dL 167-453 Lab Interpretation (test code = Normal 16082-8) [facility] Platelets (in units)~2021-10-08 06:44:36 Test Item Value Reference Range Interpretation Comments Unit Blood Type (test A Pos code = 4410) ISBT Blood Type Code (test code = 607731) Unit Number (test code [id number] = 4411) Blood Expiration Date & Time (test code = 611563) Status Information Issued (test code = 4412) Product Identification Platelets (test code = 4413) Product Code (test [id number] Performed at [facility] code = 4414) Laboratory Services [facility] Blood [address] [address]Tw[address] Free: [phone] A No. [id number] [facility] Platelets (in units)~2021-10-08 06:44:36 Test Item Value Reference Range Interpretation Comments Unit Blood Type (test A Pos code = 4410) ISBT Blood Type Code (test code = 332601) Unit Number (test code [id number] = 4411) Blood Expiration Date & Time (test code = 078274) Status Information Issued (test code = 4412) Product Identification Platelets (test code = 4413) Product Code (test [id number] Performed at [facility] code = 4414) Laboratory Services - [facility] Blood [address] [address]Lnyl Free: [phone] A No. [id number] [facility]2021-10-08 06:44:36 Test Item Value Reference Range Interpretation Comments Unit Blood Type (test A Pos code = 4410) ISBT Blood Type Code (test code = 828356) Unit Number (test code [id number] = 4411) Blood Expiration Date & Time (test code = 783372) Status Information Issued (test code = 4412) Product Identification Platelets (test code = 4413) Product Code (test [id number] Performed at [facility] code = 4414) Laboratory Services - [facility] Blood [address] [place], [place] [address]veston[place]é [address]Zdky Free: [phone] A No. [id number] [facility] [id number] 06:44:01 Test Item Value Reference Range Interpretation Comments APTT Patient (test code = See_Comment [ Automated message] 3173-2) The system [employer] generated this result transmitted ref erence range: 26 - 36 Seconds. The re ference range was not u sed to interpret this result as normal/abnor mal. Lab Interpretation (test Normal code = 68018-8) [facility] / [id number] 06:44:01 Test Item Value Reference Range Interpretation Comments PROTIME PATIENT (test See_Comment H [Auto mated message] code = 5964-2) The system [employer] generated this result transmitted ref erence range: 10.1 - 1 2.6 Seconds. The reference range was not used to int erpret this result as normal/abnormal . INR (test code = 6301-6) Nor mal INR <1.1; Warfarin Therap eutic range 2.0 to 3. 0 or 2.5 to 3.5, dep ending upon the indica tions. Lab Interpretation (test Abnormal code = 25967-6) [facility] [id number] 06:44:01 Test Item Value Reference Range Interpretation Comments APTT Patient (test code = See_Comment [ Automated message] 3173-2) The system [employer] generated this result transmitted ref erence range: 26 - 36 Seconds. The re ference range was not u sed to interpret this result as normal/abnor mal. Lab Interpretation (test Normal code = 89082-1) [facility] / [id number] 06:44:01 Test Item Value Reference Range Interpretation Comments PROTIME PATIENT (test See_Comment H [Auto mated message] code = 5964-2) The system [employer] generated this result transmitted ref erence range: 10.1 - 1 2.6 Seconds. The reference range was not used to int erpret this result as normal/abnormal . INR (test code = 6301-6) Nor mal INR <1.1; Warfarin Therap eutic range 2.0 to 3. 0 or 2.5 to 3.5, dep ending upon the indica tions. Lab Interpretation (test Abnormal code = 46997-5) [facility] [id number] 06:44:01 Test Item Value Reference Range Interpretation Comments APTT Patient (test code = See_Comment [ Automated message] 3173-2) The system [facility] [employer] generated this result transmitted ref erence range: 26 - 36 Seconds. The re ference range was not u sed to interpret this result as normal/abnor mal. Lab Interpretation (test Normal code = 94430-1) [facility] / [id number] 06:44:01 Test Item Value Reference Range Interpretation Comments PROTIME PATIENT (test See_Comment H [Auto mated message] code = 5964-2) The system [employer] generated this result transmitted ref erence range: 10.1 - 1 2.6 Seconds. The reference range was not used to int erpret this result as normal/abnormal . INR (test code = 6301-6) Nor mal INR <1.1; Warfarin Therap eutic range 2.0 to 3. 0 or 2.5 to 3.5, dep ending upon the indica tions. Lab Interpretation (test Abnormal code = 44355-2) [facility] [id number] 06:33:16 Test Item Value Reference Range Interpretation [...] (test code = 51.9 fL 39.0-49.9 H 24635-0) RDW-CV (test code = 16.2 % 12.0-15.5 H 788-0) PLT (test code = See_Comment [Automated 777-3) message] The system which generated this result transmit ramana reference range : 166 - 358 10*3/ ?L. The reference range was not u sed to interpret th is result as normal/abnormal . MPV (test code = 11.3 fL 9.5-12.9 54242-8) NRBC/100 WBC (test See_Comment [Automat ed code = 2780595109) message] The system which generated this result transmit ramana reference range : 0.0 - 10.0 /100 WBCs. The reference range was not used to interpret this result as normal/abnormal . NRBC x10^3 (test code <0.01 See_Comment [Auto mated = 9657725865) message] The system which generated this result transmit ramana reference range : 10*3/?L. The reference range was not used to interpret this result as normal/abnormal . GRAN MAT (NEUT) % 86.0 % (test code = 770-8) IMM GRAN % (test code 0.80 % = 2859896471) LYMPH % (test code = 3.8 % 736-9) MONO % (test code = 9.3 % 5905-5) EOS % (test code = 0.0 % 713-8) BASO % (test code = 0.1 % 706-2) GRAN MAT x10^3(ANC) 11.38 10*3/uL 1.88-7.09 H (test code = 9409948659) IMM GRAN x10^3 (test 0.10 10*3/uL 0.00-0.06 H code = 0156646673) LYMPH x10^3 (test code 0.50 10*3/uL 1.32-3.29 L = 731-0) MONO x10^3 (test code 1.23 10*3/uL 0.33-0.92 H = 742-7) EOS x10^3 (test code = <0.03 0.03-0.39 L 711-2) BASO x10^3 (test code <0.03 0.01-0.07 = 704-7) Lab Interpretation Abnormal (test code = 86437-2) [facility] WITH [id number] 06:33:16 Test Item Value Reference Range Interpretation [...] (test code = 51.9 fL 39.0-49.9 H 47596-2) RDW-CV (test code = 16.2 % 12.0-15.5 H 788-0) PLT (test code = See_Comment [Automated 777-3) message] The system which generated this result transmit ramana reference range : 166 - 358 10*3/ ?L. The reference range was not u sed to interpret th is result as normal/abnormal . MPV (test code = 11.3 fL 9.5-12.9 98313-4) NRBC/100 WBC (test See_Comment [Automat ed code = 0521824760) message] The system which generated this result transmit ramana reference range : 0.0 - 10.0 /100 WBCs. The reference range was not used to interpret this result as normal/abnormal . NRBC x10^3 (test code <0.01 See_Comment [Auto mated = 5710119310) message] The system which generated this result transmit ramana reference range : 10*3/?L. The reference range was not used to interpret this result as normal/abnormal . GRAN MAT (NEUT) % 86.0 % (test code = 770-8) IMM GRAN % (test code 0.80 % = 5028215153) LYMPH % (test code = 3.8 % 736-9) MONO % (test code = 9.3 % 5905-5) EOS % (test code = 0.0 % 713-8) BASO % (test code = 0.1 % 706-2) GRAN MAT x10^3(ANC) 11.38 10*3/uL 1.88-7.09 H (test code = 1130409449) IMM GRAN x10^3 (test 0.10 10*3/uL 0.00-0.06 H code = 2679956614) LYMPH x10^3 (test code 0.50 10*3/uL 1.32-3.29 L = 731-0) MONO x10^3 (test code 1.23 10*3/uL 0.33-0.92 H = 742-7) EOS x10^3 (test code = <0.03 0.03-0.39 L 711-2) BASO x10^3 (test code <0.03 0.01-0.07 = 704-7) Lab Interpretation Abnormal (test code = 37040-7) [facility] WITH [id number] 06:33:16 Test Item Value Reference Range Interpretation [...] (test code = 51.9 fL 39.0-49.9 H 33567-2) RDW-CV (test code = 16.2 % 12.0-15.5 H 788-0) PLT (test code = See_Comment [Automated 777-3) message] The system which generated this result transmit ramana reference range : 166 - 358 10*3/ ?L. The reference range was not u sed to interpret th is result as normal/abnormal . MPV (test code = 11.3 fL 9.5-12.9 16884-2) NRBC/100 WBC (test See_Comment [Automat ed code = 9842642566) message] The system which generated this result transmit ramana reference range : 0.0 - 10.0 /100 WBCs. The reference range was not used to interpret this result as normal/abnormal . NRBC x10^3 (test code <0.01 See_Comment [Auto mated = 2458954957) message] The system which generated this result transmit ramana reference range : 10*3/?L. The reference range was not used to interpret this result as normal/abnormal . GRAN MAT (NEUT) % 86.0 % (test code = 770-8) IMM GRAN % (test code 0.80 % = 4903384095) LYMPH % (test code = 3.8 % 736-9) MONO % (test code = 9.3 % 5905-5) EOS % (test code = 0.0 % 713-8) BASO % (test code = 0.1 % 706-2) GRAN MAT x10^3(ANC) 11.38 10*3/uL 1.88-7.09 H (test code = 3155522372) IMM GRAN x10^3 (test 0.10 10*3/uL 0.00-0.06 H code = 3445773214) LYMPH x10^3 (test code 0.50 10*3/uL 1.32-3.29 L = 731-0) MONO x10^3 (test code 1.23 10*3/uL 0.33-0.92 H = 742-7) EOS x10^3 (test code = <0.03 0.03-0.39 L 711-2) BASO x10^3 (test code <0.03 0.01-0.07 = 704-7) Lab Interpretation Abnormal (test code = 40008-7) [facility] [id number] 06:25:43 Test Item Value Reference Range Interpretation Comments PH (test code = 7.32-7.42 L 0478608609) PCO2 SHAY (test code = See_Comment [Auto mated 6335822381) message] The sy stem which generated this result transmitted reference range : 41 - 51 mmHg. The reference range was not used to interpret this result as normal/abnormal . PO2 SHAY (test code = See_Comment L [Autom ated 8756971246) message] The sy stem which generated this result transmitted reference range : 25 - 40 mmHg. The reference range was not used to interpret this result as normal/abnormal . HCO3 SHAY (test code = See_Comment L [Auto mated 8283864997) message] The sy stem which generated this result transmitted reference range : 24 - 28 mEq/L. The reference range was not used to interpret this result as normal/abnormal . AC VBE(BEAKER) (test mEq/L code = 4031803172) THB SHAY (test code = 6.1 g/dL 12.0-16.0 LL 0476064288) %O2HB SHAY (test code = 26.6 % 52.0-63.0 L 3812267458) %COHB SHAY (test code = 1.0 % 0.0-1.5 3423922231) %METHB SHAY (test code = 0.9 % 0.4-1.5 6407712572) VOL%O2 SHAY (test code = 2.3 % 6.0-12.0 L 4962304800) NA (test code = 130 mmol/L 135-145 L 3974516641) K+ (test code = 4.3 mmol/L 3.5-5.0 2499392245) AC CA IONZ (test code = 4.60 mg/dL 4.50-5.30 2854195036) GLUCOSE (test code = 239 mg/dL 70-110 H 0314266461) LACTIC ACID (test code 3.16 mmol/L 0.50-2.20 H = 3853070750) Lab Interpretation Abnormal (test code = 29060-2) [facility] [id number] 06:25:43 Test Item Value Reference Range Interpretation Comments PH (test code = 7.32-7.42 L 1966930479) PCO2 SHAY (test code = See_Comment [Auto mated 0239253264) message] The sy stem which generated this result transmitted reference range : 41 - 51 mmHg. The reference range was not used to interpret this result as normal/abnormal . PO2 SHAY (test code = See_Comment L [Autom ated 8160497643) message] The sy stem which generated this result transmitted reference range : 25 - 40 mmHg. The reference range was not used to interpret this result as normal/abnormal . HCO3 SHAY (test code = See_Comment L [Auto mated 8780328318) message] The sy stem which generated this result transmitted reference range : 24 - 28 mEq/L. The reference range was not used to interpret this result as normal/abnormal . AC VBE(BEAKER) (test mEq/L code = 7656110859) THB SHAY (test code = 6.1 g/dL 12.0-16.0 LL 8203483243) %O2HB SHAY (test code = 26.6 % 52.0-63.0 L 0604656117) %COHB SHAY (test code = 1.0 % 0.0-1.5 9992231404) %METHB SHAY (test code = 0.9 % 0.4-1.5 6727399497) VOL%O2 SHAY (test code = 2.3 % 6.0-12.0 L 6701955854) NA (test code = 130 mmol/L 135-145 L 7667087795) K+ (test code = 4.3 mmol/L 3.5-5.0 2345046981) AC CA IONZ (test code = 4.60 mg/dL 4.50-5.30 7147922174) GLUCOSE (test code = 239 mg/dL 70-110 H 4703838488) LACTIC ACID (test code 3.16 mmol/L 0.50-2.20 H = 8671981398) Lab Interpretation Abnormal (test code = 35345-6) [facility] [id number] 06:25:43 Test Item Value Reference Range Interpretation Comments PH (test code = 7.32-7.42 L 4290110799) PCO2 SHAY (test code = See_Comment [Auto mated 6182004718) message] The sy stem which generated this result transmitted reference range : 41 - 51 mmHg. The reference range was not used to interpret this result as normal/abnormal . PO2 SHAY (test code = See_Comment L [Autom ated 2499467269) message] The sy stem which generated this result transmitted reference range : 25 - 40 mmHg. The reference range was not used to interpret this result as normal/abnormal . HCO3 SHAY (test code = See_Comment L [Auto mated 6596091905) message] The sy stem which generated this result transmitted reference range : 24 - 28 mEq/L. The reference range was not used to interpret this result as normal/abnormal . AC VBE(BEAKER) (test mEq/L code = 9239303453) THB SHAY (test code = 6.1 g/dL 12.0-16.0 LL 0903889206) %O2HB SHAY (test code = 26.6 % 52.0-63.0 L 7302548064) %COHB SHAY (test code = 1.0 % 0.0-1.5 1158034973) %METHB SHAY (test code = 0.9 % 0.4-1.5 0772434927) VOL%O2 SHAY (test code = 2.3 % 6.0-12.0 L 5763673897) NA (test code = 130 mmol/L 135-145 L 2373286360) K+ (test code = 4.3 mmol/L 3.5-5.0 8434365966) AC CA IONZ (test code = 4.60 mg/dL 4.50-5.30 6473849901) GLUCOSE (test code = 239 mg/dL 70-110 H 2753706077) LACTIC ACID (test code 3.16 mmol/L 0.50-2.20 H = 3774748228) Lab Interpretation Abnormal (test code = 62219-3) [facility] METABOLIC PANEL (NA, K, CL, CO2, GLUCOSE, BUN, CREATININE, CA)2021-10-08 05:38:11 Test Item Value Reference Range Interpretation Comments NA (test code = 132 mmol/L 135-145 L 5454174357) K (test code = 4.7 mmol/L 3.5-5.0 8316387253) CL (test code = 107 mmol/L 98-108 4381494424) CO2 TOTAL (test code = 20 mmol/L 23-31 L 5222698038) AGAP (test code = 2-16 6493570071) BUN (test code = 8 mg/dL 7-23 5072280347) GLUCOSE (test code = 322 mg/dL 70-110 H 2378890991) CREATININE (test code = 0.65 mg/dL 0.50-1.04 3319944125) CALCIUM (test code = 7.7 mg/dL 8.6-10.6 L 1606729020) eGFR (test code = mL/min/1.73m2 4934144272) MICKY (test code = MICKY) Association of [...] tests). Lab Interpretation Abnormal (test code = 14925-2) [facility] Test Item Value Reference Range Interpretation Comments MAGNESIUM (test code = 3241969843) 1.6 mg/dL 1.7-2.4 L Lab Interpretation (test code = Abnormal 63708-2) [facility] (NA, K, CL, CO2, GLUCOSE, BUN, CREATININE, CA)2021-10-08 05:38:11 Test Item Value Reference Range Interpretation Comments NA (test code = 132 mmol/L 135-145 L 3315918482) K (test code = 4.7 mmol/L 3.5-5.0 3379258456) CL (test code = 107 mmol/L 98-108 5247253309) CO2 TOTAL (test code = 20 mmol/L 23-31 L 6773422939) AGAP (test code = 2-16 0313615175) BUN (test code = 8 mg/dL 7-23 3681479699) GLUCOSE (test code = 322 mg/dL 70-110 H 5362977246) CREATININE (test code = 0.65 mg/dL 0.50-1.04 7200374949) CALCIUM (test code = 7.7 mg/dL 8.6-10.6 L 9646575292) eGFR (test code = mL/min/1.73m2 0266749447) MICKY (test code = MICKY) Association of [...] tests). Lab Interpretation Abnormal (test code = 05688-6) [facility]11 Test Item Value Reference Range Interpretation Comments MAGNESIUM (test code = 9413433136) 1.6 mg/dL 1.7-2.4 L Lab Interpretation (test code = Abnormal 30320-2) [facility] (NA, K, CL, CO2, GLUCOSE, BUN, CREATININE, CA)2021-10-08 05:38:11 Test Item Value Reference Range Interpretation Comments NA (test code = 132 mmol/L 135-145 L 0490426736) K (test code = 4.7 mmol/L 3.5-5.0 6887357853) CL (test code = 107 mmol/L 98-108 5877545518) CO2 TOTAL (test code = 20 mmol/L 23-31 L 7663119516) AGAP (test code = 2-16 4775924144) BUN (test code = 8 mg/dL 7-23 3726310853) GLUCOSE (test code = 322 mg/dL 70-110 H 5961713346) CREATININE (test code = 0.65 mg/dL 0.50-1.04 9112314405) CALCIUM (test code = 7.7 mg/dL 8.6-10.6 L 3545879553) eGFR (test code = mL/min/1.73m2 5009018003) MICKY (test code = MICKY) Association of [...] tests). Lab Interpretation Abnormal (test code = 29163-7) [facility] Test Item Value Reference Range Interpretation Comments MAGNESIUM (test code = 9659529907) 1.6 mg/dL 1.7-2.4 L Lab Interpretation (test code = Abnormal 07665-7) [facility] WITH [id number] 04:49:24 Test Item Value Reference Range Interpretation [...] (test code = 59.6 fL 39.0-49.9 H 60819-5) RDW-CV (test code = 17.4 % 12.0-15.5 H 788-0) PLT (test code = See_Comment [Automated 777-3) message] The sy stem which generated this result transmitted reference range : 166 - 358 10*3/ ?L. The reference r susan was not used to interpret this result as normal/abnormal . MPV (test code = 11.5 fL 9.5-12.9 96472-3) NRBC/100 WBC (test See_Comment [Automat ed code = 7481949256) message] The system which generated this result transmitted reference range : 0.0 - 10.0 /100 WBCs. The refer ence range was not u sed to interpret th is result as normal/abnormal . NRBC x10^3 (test code <0.01 See_Comment [Auto mated = 9103209353) message] The s ystem which generated this result transmitted reference range : 10*3/?L. The reference range was not used to interpret this result as normal/abnormal . GRAN MAT (NEUT) % 90.2 % (test code = 770-8) IMM GRAN % (test code 0.60 % = 8651641108) LYMPH % (test code = 3.9 % 736-9) MONO % (test code = 5.2 % 5905-5) EOS % (test code = 0.0 % 713-8) BASO % (test code = 0.1 % 706-2) GRAN MAT x10^3(ANC) 8.42 10*3/uL 1.88-7.09 H (test code = 6670498537) IMM GRAN x10^3 (test 0.06 10*3/uL 0.00-0.06 code = 1804987642) LYMPH x10^3 (test code 0.36 10*3/uL 1.32-3.29 L = 731-0) MONO x10^3 (test code 0.49 10*3/uL 0.33-0.92 = 742-7) EOS x10^3 (test code = <0.03 0.03-0.39 L 711-2) BASO x10^3 (test code <0.03 0.01-0.07 = 704-7) Lab Interpretation Abnormal (test code = 56232-8) [facility] WITH [id number] 04:49:24 Test Item Value Reference Range Interpretation Comments WBC (test code = See_Comment [Automated 1490-2) message] The sy stem which generated this result transmitted reference range : 4.30 - 11.10 10*3/?L. The reference range was not used to interpret this result as normal/abnormal . RBC (test code = See_Comment L [Automated 709-8) message] The sy stem which generated this [...] (test code = 59.6 fL 39.0-49.9 H 35465-9) RDW-CV (test code = 17.4 % 12.0-15.5 H 788-0) PLT (test code = See_Comment [Automated 777-3) message] The sy stem which generated this result transmitted reference range : 166 - 358 10*3/ ?L. The reference r susan was not used to interpret this result as normal/abnormal . MPV (test code = 11.5 fL 9.5-12.9 74901-0) NRBC/100 WBC (test See_Comment [Automat ed code = 3408569620) message] The system which generated this result transmitted reference range : 0.0 - 10.0 /100 WBCs. The refer ence range was not u sed to interpret th is result as normal/abnormal . NRBC x10^3 (test code <0.01 See_Comment [Auto mated = 9678546448) message] The s ystem which generated this result transmitted reference range : 10*3/?L. The reference range was not used to interpret this result as normal/abnormal . GRAN MAT (NEUT) % 90.2 % (test code = 770-8) IMM GRAN % (test code 0.60 % = 0417143568) LYMPH % (test code = 3.9 % 736-9) MONO % (test code = 5.2 % 5905-5) EOS % (test code = 0.0 % 713-8) BASO % (test code = 0.1 % 706-2) GRAN MAT x10^3(ANC) 8.42 10*3/uL 1.88-7.09 H (test code = 3995823615) IMM GRAN x10^3 (test 0.06 10*3/uL 0.00-0.06 code = 3346636655) LYMPH x10^3 (test code 0.36 10*3/uL 1.32-3.29 L = 731-0) MONO x10^3 (test code 0.49 10*3/uL 0.33-0.92 = 742-7) EOS x10^3 (test code = <0.03 0.03-0.39 L 711-2) BASO x10^3 (test code <0.03 0.01-0.07 = 704-7) Lab Interpretation Abnormal (test code = 01572-3) [facility] WITH [id number] 04:49:24 Test Item Value Reference Range Interpretation [...] (test code = 59.6 fL 39.0-49.9 H 48768-8) RDW-CV (test code = 17.4 % 12.0-15.5 H 788-0) PLT (test code = See_Comment [Automated 777-3) message] The sy stem which generated this result transmitted reference range : 166 - 358 10*3/ ?L. The reference r susan was not used to interpret this result as normal/abnormal . MPV (test code = 11.5 fL 9.5-12.9 12292-2) NRBC/100 WBC (test See_Comment [Automat ed code = 1446364167) message] The system which generated this result transmitted reference range : 0.0 - 10.0 /100 WBCs. The refer ence range was not u sed to interpret th is result as normal/abnormal . NRBC x10^3 (test code <0.01 See_Comment [Auto mated = 1700394457) message] The s ystem which generated this result transmitted reference range : 10*3/?L. The reference range was not used to interpret this result as normal/abnormal . GRAN MAT (NEUT) % 90.2 % (test code = 770-8) IMM GRAN % (test code 0.60 % = 6337985913) LYMPH % (test code = 3.9 % 736-9) MONO % (test code = 5.2 % 5905-5) EOS % (test code = 0.0 % 713-8) BASO % (test code = 0.1 % 706-2) GRAN MAT x10^3(ANC) 8.42 10*3/uL 1.88-7.09 H (test code = 0325821638) IMM GRAN x10^3 (test 0.06 10*3/uL 0.00-0.06 code = 5419336670) LYMPH x10^3 (test code 0.36 10*3/uL 1.32-3.29 L = 731-0) MONO x10^3 (test code 0.49 10*3/uL 0.33-0.92 = 742-7) EOS x10^3 (test code = <0.03 0.03-0.39 L 711-2) BASO x10^3 (test code <0.03 0.01-0.07 = 704-7) Lab Interpretation Abnormal (test code = 31523-5) [facility] ([facility]), 1 Units 2021-10-08 04:27:22 Test Item Value Reference Range Interpretation Comments Cross Match Result Compatible (test code = 4409) ISBT Blood Type Code (test code = 451929) Unit Blood Type (test A Pos code = 4410) Unit Number (test [id number] code = 4411) Blood Expiration Date & Time (test code = 449836) Status Information Issued (test code = 4412) Product Red Blood Cells Identification (test code = 4413) Product Code (test K4780R18 Performed at [facility] code = 4414) Laboratory Services [facility] Blood [address] [address]Wyjn Free: [phone] A No. [id number] [facility] P[facility] RBC (in units), 1 Units 2021-10-08 04:27:22 Test Item Value Reference Range Interpretation Comments Cross Match Result Compatible (test code = 4409) ISBT Blood Type Code (test code = 299296) Unit Blood Type (test A Pos code = 4410) Unit Number (test [id number] code = 4411) Blood Expiration Date & Time (test code = 295048) Status Information Issued (test code = 4412) Product Red Blood Cells Identification (test code = 4413) Product Code (test E1740T24 Performed at [facility] code = 4414) Laboratory Services [facility] Blood [address] [address]Tygr Free: [phone] A No. [id number] [facility] (in units), 1 Units 2021-10-08 04:27:22 Test Item Value Reference Range Interpretation Comments Cross Match Result Compatible (test code = 4409) ISBT Blood Type Code (test code = 438817) Unit Blood Type (test A Pos code = 4410) Unit Number (test [id number] code = 4411) Blood Expiration Date & Time (test code = 079104) Status Information Issued (test code = 4412) Product Red Blood Cells Identification (test code = 4413) Product Code (test S7373N23 Performed at [facility] code = 4414) Laboratory Services [facility] Blood [address] [address]Ocbu Free: [phone] A No. [id number] [facility]2021-10-08 03:52:59 Test Item Value Reference Range Interpretation Comments POCT GLU (test code = 5722648856) 261 mg/dL 70-110 H Lab Interpretation (test code = Abnormal 46340-5) [facility] GLUCOSE (AUTOMATED)2021-10-08 03:52:59 Test Item Value Reference Range Interpretation Comments POCT GLU (test code = 5357612984) 261 mg/dL 70-110 H Lab Interpretation (test code = Abnormal 77780-3) [facility] GLUCOSE (AUTOMATED)2021-10-08 03:52:59 Test Item Value Reference Range Interpretation Comments POCT GLU (test code = 3118020791) 261 mg/dL 70-110 H Lab Interpretation (test code = Abnormal 26408-1) [facility] WITH [id number] 00:07:18 Test Item Value Reference Range Interpretation [...] (test code = 60.2 fL 39.0-49.9 H 97787-7) RDW-CV (test code = 17.7 % 12.0-15.5 H 788-0) PLT (test code = See_Comment [Automated 777-3) message] The sy stem which generated this result transmitted reference range : 166 - 358 10*3/ ?L. The reference r susan was not used to interpret this result as normal/abnormal . MPV (test code = 11.6 fL 9.5-12.9 41023-2) NRBC/100 WBC (test See_Comment [Automat ed code = 5309691558) message] The system which generated this result transmitted reference range : 0.0 - 10.0 /100 WBCs. The refer ence range was not u sed to interpret th is result as normal/abnormal . NRBC x10^3 (test code <0.01 See_Comment [Auto mated = 0680531141) message] The s ystem which generated this result transmitted reference range : 10*3/?L. The reference range was not used to interpret this result as normal/abnormal . GRAN MAT (NEUT) % 93.5 % (test code = 770-8) IMM GRAN % (test code 0.80 % = 1344999679) LYMPH % (test code = 3.4 % 736-9) MONO % (test code = 2.2 % 5905-5) EOS % (test code = 0.0 % 713-8) BASO % (test code = 0.1 % 706-2) GRAN MAT x10^3(ANC) 9.81 10*3/uL 1.88-7.09 H (test code = 4139117830) IMM GRAN x10^3 (test 0.08 10*3/uL 0.00-0.06 H code = 0066717790) LYMPH x10^3 (test code 0.36 10*3/uL 1.32-3.29 L = 731-0) MONO x10^3 (test code 0.23 10*3/uL 0.33-0.92 L = 742-7) EOS x10^3 (test code = <0.03 0.03-0.39 L 711-2) BASO x10^3 (test code <0.03 0.01-0.07 = 704-7) Lab Interpretation Abnormal (test code = 43045-0) [facility] WITH [id number] 00:07:18 Test Item Value Reference Range Interpretation [...] (test code = 60.2 fL 39.0-49.9 H 06916-3) RDW-CV (test code = 17.7 % 12.0-15.5 H 788-0) PLT (test code = See_Comment [Automated 777-3) message] The sy stem which generated this result transmitted reference range : 166 - 358 10*3/ ?L. The reference r susan was not used to interpret this result as normal/abnormal . MPV (test code = 11.6 fL 9.5-12.9 10838-4) NRBC/100 WBC (test See_Comment [Automat ed code = 7905704891) message] The system which generated this result transmitted reference range : 0.0 - 10.0 /100 WBCs. The refer ence range was not u sed to interpret th is result as normal/abnormal . NRBC x10^3 (test code <0.01 See_Comment [Auto mated = 1352766341) message] The s ystem which generated this result transmitted reference range : 10*3/?L. The reference range was not used to interpret this result as normal/abnormal . GRAN MAT (NEUT) % 93.5 % (test code = 770-8) IMM GRAN % (test code 0.80 % = 9781473294) LYMPH % (test code = 3.4 % 736-9) MONO % (test code = 2.2 % 5905-5) EOS % (test code = 0.0 % 713-8) BASO % (test code = 0.1 % 706-2) GRAN MAT x10^3(ANC) 9.81 10*3/uL 1.88-7.09 H (test code = 8576849839) IMM GRAN x10^3 (test 0.08 10*3/uL 0.00-0.06 H code = 3816940514) LYMPH x10^3 (test code 0.36 10*3/uL 1.32-3.29 L = 731-0) MONO x10^3 (test code 0.23 10*3/uL 0.33-0.92 L = 742-7) EOS x10^3 (test code = <0.03 0.03-0.39 L 711-2) BASO x10^3 (test code <0.03 0.01-0.07 = 704-7) Lab Interpretation Abnormal (test code = 63683-7) [facility] WITH [id number] 00:07:18 Test Item Value Reference Range Interpretation [...] (test code = 60.2 fL 39.0-49.9 H 20387-1) RDW-CV (test code = 17.7 % 12.0-15.5 H 788-0) PLT (test code = See_Comment [Automated 777-3) message] The sy stem which generated this result transmitted reference range : 166 - 358 10*3/ ?L. The reference r susan was not used to interpret this result as normal/abnormal . MPV (test code = 11.6 fL 9.5-12.9 38034-4) NRBC/100 WBC (test See_Comment [Automat ed code = 9575098011) message] The system which generated this result transmitted reference range : 0.0 - 10.0 /100 WBCs. The refer ence range was not u sed to interpret th is result as normal/abnormal . NRBC x10^3 (test code <0.01 See_Comment [Auto mated = 1307104354) message] The s ystem which generated this result transmitted reference range : 10*3/?L. The reference range was not used to interpret this result as normal/abnormal . GRAN MAT (NEUT) % 93.5 % (test code = 770-8) IMM GRAN % (test code 0.80 % = 3017462078) LYMPH % (test code = 3.4 % 736-9) MONO % (test code = 2.2 % 5905-5) EOS % (test code = 0.0 % 713-8) BASO % (test code = 0.1 % 706-2) GRAN MAT x10^3(ANC) 9.81 10*3/uL 1.88-7.09 H (test code = 6207457908) IMM GRAN x10^3 (test 0.08 10*3/uL 0.00-0.06 H code = 9273349567) LYMPH x10^3 (test code 0.36 10*3/uL 1.32-3.29 L = 731-0) MONO x10^3 (test code 0.23 10*3/uL 0.33-0.92 L = 742-7) EOS x10^3 (test code = <0.03 0.03-0.39 L 711-2) BASO x10^3 (test code <0.03 0.01-0.07 = 704-7) Lab Interpretation Abnormal (test code = 59824-6) [facility] (in units), 2 Units 2021-10-07 21:08:55 Test Item Value Reference Range Interpretation Comments Cross Match Result Compatible (test code = 4409) ISBT Blood Type Code (test code = 808262) Unit Blood Type (test A Pos code = 4410) Unit Number (test [id number] code = 4411) Blood Expiration Date & Time (test code = 205022) Status Information Issued (test code = 4412) Product Red Blood Cells Identification (test code = 4413) Product Code (test E3198F16 Performed at [facility] code = 4414) Laboratory Services [facility] Blood [address] [address]Hcvd Free: [phone] A No. [id number] [facility] Packed RBC (in units), 2 Units 2021-10-07 21:08:55 Test Item Value Reference Range Interpretation Comments Cross Match Result Compatible (test code = 4409) ISBT Blood Type Code (test code = 420600) Unit Blood Type (test A Pos code = 4410) Unit Number (test [id number] code = 4411) Blood Expiration Date & Time (test code = 070965) Status Information Issued (test code = 4412) Product Red Blood Cells Identification (test code = 4413) Product Code (test Z6479O29 Performed at [facility] code = 4414) Laboratory Services [facility] Blood [address] [address]Igeg Free: [phone] A No. [id number] [facility] Packed RBC (in units), 2 Units 2021-10-07 21:08:55 Test Item Value Reference Range Interpretation Comments Cross Match Result Compatible (test code = 4409) ISBT Blood Type Code (test code = 884301) Unit Blood Type (test A Pos code = 4410) Unit Number (test [id number] code = 4411) Blood Expiration Date & Time (test code = 781986) Status Information Issued (test code = 4412) Product Red Blood Cells Identification (test code = 4413) Product Code (test S7757B72 Performed at [facility] code = 4414) Laboratory Services - [facility] Blood [address] [address]Xakt Free: [phone] A No. [id number] [facility]OL[facility] PAN[facility] ([id number])2021-10-07 12:06:32 Test Item Value Reference Range Interpretation Comments NA (test code = 139 mmol/L 135-145 0924867349) K (test code = 4.1 mmol/L 3.5-5.0 7511919070) CL (test code = 110 mmol/L 98-108 H 3127213541) CO2 TOTAL (test code = 24 mmol/L 23-31 4536813270) AGAP (test code = 2-16 5626407015) BUN (test code = 6 mg/dL 7-23 L 4664498326) GLUCOSE (test code = 95 mg/dL 70-110 0417455919) CREATININE (test code = 0.48 mg/dL 0.50-1.04 L 0745415049) TOTAL BILI (test code = 0.3 mg/dL 0.1-1.3 2395328219) CALCIUM (test code = 8.2 mg/dL 8.6-10.6 L 0390872626) T PROTEIN (test code = 6.3 g/dL 6.3-8.2 5232792169) ALBUMIN (test code = 3.2 g/dL 3.5-5.0 L 2686896658) ALK PHOS (test code = 60 U/L 34-122 6623928239) ALTv (test code = 12 U/L 5-35 1742-6) AST(SGOT) (test code = 19 U/L 13-40 2288652079) eGFR (test code = mL/min/1.73m2 7657336081) MICKY (test code = MICKY) Association of [...] tests). Lab Interpretation Abnormal (test code = 54050-7) [facility]. METABOLIC PANEL (19567)2021-10-07 12:06:32 Test Item Value Reference Range Interpretation Comments NA (test code = 139 mmol/L 135-145 8652837879) K (test code = 4.1 mmol/L 3.5-5.0 4237879173) CL (test code = 110 mmol/L 98-108 H 8709743063) CO2 TOTAL (test code = 24 mmol/L 23-31 1577521273) AGAP (test code = 2-16 4089482776) BUN (test code = 6 mg/dL 7-23 L 7555622898) GLUCOSE (test code = 95 mg/dL 70-110 9310911457) CREATININE (test code = 0.48 mg/dL 0.50-1.04 L 2795896248) TOTAL BILI (test code = 0.3 mg/dL 0.1-1.4 9490967669) CALCIUM (test code = 8.2 mg/dL 8.6-10.6 L 5460411359) T PROTEIN (test code = 6.3 g/dL 6.3-8.2 8163406331) ALBUMIN (test code = 3.2 g/dL 3.5-5.0 L 1909437813) ALK PHOS (test code = 60 U/L 34-122 6414442343) ALTv (test code = 12 U/L 5-35 1742-6) AST(SGOT) (test code = 19 U/L 13-40 4514479156) eGFR (test code = mL/min/1.73m2 5977544269) MICKY (test code = MICKY) Association of [...] tests). Lab Interpretation Abnormal (test code = 72860-4) [facility]. METABOLIC PANEL ([id number])2021-10-07 12:06:32 Test Item Value Reference Range Interpretation Comments NA (test code = 139 mmol/L 135-145 9587453182) K (test code = 4.1 mmol/L 3.5-5.0 7533799996) CL (test code = 110 mmol/L 98-108 H 0314825917) CO2 TOTAL (test code = 24 mmol/L 23-31 3576444945) AGAP (test code = 2-16 9861363360) BUN (test code = 6 mg/dL 7-23 L 7233945928) GLUCOSE (test code = 95 mg/dL 70-110 5720327329) CREATININE (test code = 0.48 mg/dL 0.50-1.04 L 0414977994) TOTAL BILI (test code = 0.3 mg/dL 0.1-1.3 6221741562) CALCIUM (test code = 8.2 mg/dL 8.6-10.6 L 2930538039) T PROTEIN (test code = 6.3 g/dL 6.3-8.2 0873814185) ALBUMIN (test code = 3.2 g/dL 3.5-5.0 L 0742875952) ALK PHOS (test code = 60 U/L 34-122 1683899662) ALTv (test code = 12 U/L 5-35 1742-6) AST(SGOT) (test code = 19 U/L 13-40 6729131106) eGFR (test code = mL/min/1.73m2 7651576487) MICKY (test code = MICKY) Association of [...] tests). Lab Interpretation Abnormal (test code = 08215-8) [facility] / [id number] 00:45:45 Test Item Value Reference Range Interpretation Comments PROTIME PATIENT (test See_Comment H [Auto mated message] code = 5964-2) The system [employer] generated this result transmitted ref erence range: 10.1 - 1 2.6 Seconds. The reference range was not used to int erpret this result as normal/abnormal . INR (test code = 6301-6) Nor mal INR <1.1; Warfarin Therap eutic range 2.0 to 3. 0 or 2.5 to 3.5, dep ending upon the indica tions. Lab Interpretation (test Abnormal code = 26300-8) [facility] [id number] 00:45:45 Test Item Value Reference Range Interpretation Comments APTT Patient (test code See_Comment L [Au tomated message] = 3173-2) The system [employer] generated this result transmitted ref erence range: 26 - 36 Seconds. The reference range was not used to int erpret this result as normal/abnormal . Lab Interpretation (test Abnormal code = 70020-2) [facility] 00:45:45 Test Item Value Reference Range Interpretation Comments Fibrinogen (test code = 4486939074) 306 mg/dL 167-453 Lab Interpretation (test code = Normal 95087-7) [facility] / [id number] 00:45:45 Test Item Value Reference Range Interpretation Comments PROTIME PATIENT (test See_Comment H [Auto mated message] code = 5964-2) The system [employer] generated this result transmitted ref erence range: 10.1 - 1 2.6 Seconds. The reference range was not used to int erpret this result as normal/abnormal . INR (test code = 6301-6) Nor mal INR <1.1; Warfarin Therap eutic range 2.0 to 3. 0 or 2.5 to 3.5, dep ending upon the indica tions. Lab Interpretation (test Abnormal code = 57021-4) [facility] [id number] 00:45:45 Test Item Value Reference Range Interpretation Comments APTT Patient (test code See_Comment L [Au tomated message] = 3173-2) The system [employer] generated this result transmitted ref erence range: 26 - 36 Seconds. The reference range was not used to int erpret this result as normal/abnormal . Lab Interpretation (test Abnormal code = 18698-2) [facility] 00:45:45 Test Item Value Reference Range Interpretation Comments Fibrinogen (test code = 8772032299) 306 mg/dL 167-453 Lab Interpretation (test code = Normal 80725-9) [facility] / [id number] 00:45:45 Test Item Value Reference Range Interpretation Comments PROTIME PATIENT (test See_Comment H [Auto mated message] code = 5964-2) The system [employer] generated this result transmitted ref erence range: 10.1 - 1 2.6 Seconds. The reference range was not used to int erpret this result as normal/abnormal . INR (test code = 6301-6) Nor mal INR <1.1; Warfarin Therap eutic range 2.0 to 3. 0 or 2.5 to 3.5, dep ending upon the indica tions. Lab Interpretation (test Abnormal code = 05298-3) [facility] [id number] 00:45:45 Test Item Value Reference Range Interpretation Comments APTT Patient (test code See_Comment L [Au tomated message] = 3173-2) The system [employer] generated this result transmitted ref erence range: 26 - 36 Seconds. The reference range was not used to int erpret this result as normal/abnormal . Lab Interpretation (test Abnormal code = 50109-6) [facility] Test Item Value Reference Range Interpretation Comments Fibrinogen (test code = 8552831511) 306 mg/dL 167-453 Lab Interpretation (test code = Normal 64533-9) [facility] WITH [id number] 00:39:06 Test Item Value Reference Range Interpretation [...] (test code = 62.5 fL 39.0-49.9 H 35089-2) RDW-CV (test code = 19.2 % 12.0-15.5 H 788-0) PLT (test code = See_Comment L [Automated 777-3) message] The sy stem which generated this result transmitted reference range : 166 - 358 10*3/ ?L. The reference r susan was not used to interpret this result as normal/abnormal . MPV (test code = 10.4 fL 9.5-12.9 46556-5) NRBC/100 WBC (test See_Comment [Automat ed code = 5547237872) message] The system which generated this result transmitted reference range : 0.0 - 10.0 /100 WBCs. The refer ence range was not u sed to interpret th is result as normal/abnormal . NRBC x10^3 (test code <0.01 See_Comment [Auto mated = 3872355802) message] The s ystem which generated this result transmitted reference range : 10*3/?L. The reference range was not used to interpret this result as normal/abnormal . GRAN MAT (NEUT) % 64.9 % (test code = 770-8) IMM GRAN % (test code 0.40 % = 8667391683) LYMPH % (test code = 24.5 % 736-9) MONO % (test code = 6.8 % 5905-5) EOS % (test code = 3.0 % 713-8) BASO % (test code = 0.4 % 706-2) GRAN MAT x10^3(ANC) 3.23 10*3/uL 1.88-7.09 (test code = 4554893098) IMM GRAN x10^3 (test <0.03 0.00-0.06 code = 0684243204) LYMPH x10^3 (test code 1.22 10*3/uL 1.32-3.29 L = 731-0) MONO x10^3 (test code 0.34 10*3/uL 0.33-0.92 = 742-7) EOS x10^3 (test code = 0.15 10*3/uL 0.03-0.39 711-2) BASO x10^3 (test code <0.03 0.01-0.07 = 704-7) Lab Interpretation Abnormal (test code = 77911-4) [facility] WITH [id number] 00:39:06 Test Item Value Reference Range Interpretation [...] (test code = 62.5 fL 39.0-49.9 H 38843-3) RDW-CV (test code = 19.2 % 12.0-15.5 H 788-0) PLT (test code = See_Comment L [Automated 777-3) message] The sy stem which generated this result transmitted reference range : 166 - 358 10*3/ ?L. The reference r susan was not used to interpret this result as normal/abnormal . MPV (test code = 10.4 fL 9.5-12.9 73419-4) NRBC/100 WBC (test See_Comment [Automat ed code = 0172631947) message] The system which generated this result transmitted reference range : 0.0 - 10.0 /100 WBCs. The refer ence range was not u sed to interpret th is result as normal/abnormal . NRBC x10^3 (test code <0.01 See_Comment [Auto mated = 0259233218) message] The s ystem which generated this result transmitted reference range : 10*3/?L. The reference range was not used to interpret this result as normal/abnormal . GRAN MAT (NEUT) % 64.9 % (test code = 770-8) IMM GRAN % (test code 0.40 % = 6144608964) LYMPH % (test code = 24.5 % 736-9) MONO % (test code = 6.8 % 5905-5) EOS % (test code = 3.0 % 713-8) BASO % (test code = 0.4 % 706-2) GRAN MAT x10^3(ANC) 3.23 10*3/uL 1.88-7.09 (test code = 9200464562) IMM GRAN x10^3 (test <0.03 0.00-0.06 code = 6362540522) LYMPH x10^3 (test code 1.22 10*3/uL 1.32-3.29 L = 731-0) MONO x10^3 (test code 0.34 10*3/uL 0.33-0.92 = 742-7) EOS x10^3 (test code = 0.15 10*3/uL 0.03-0.39 711-2) BASO x10^3 (test code <0.03 0.01-0.07 = 704-7) Lab Interpretation Abnormal (test code = 89813-9) [facility] WITH [id number] 00:39:06 Test Item Value Reference Range Interpretation [...] (test code = 62.5 fL 39.0-49.9 H 62343-2) RDW-CV (test code = 19.2 % 12.0-15.5 H 788-0) PLT (test code = See_Comment L [Automated 777-3) message] The sy stem which generated this result transmitted reference range : 166 - 358 10*3/ ?L. The reference r susan was not used to interpret this result as normal/abnormal . MPV (test code = 10.4 fL 9.5-12.9 08451-0) NRBC/100 WBC (test See_Comment [Automat ed code = 4009842055) message] The system which generated this result transmitted reference range : 0.0 - 10.0 /100 WBCs. The refer ence range was not u sed to interpret th is result as normal/abnormal . NRBC x10^3 (test code <0.01 See_Comment [Auto mated = 5917390551) message] The s ystem which generated this result transmitted reference range : 10*3/?L. The reference range was not used to interpret this result as normal/abnormal . GRAN MAT (NEUT) % 64.9 % (test code = 770-8) IMM GRAN % (test code 0.40 % = 6506811342) LYMPH % (test code = 24.5 % 736-9) MONO % (test code = 6.8 % 5905-5) EOS % (test code = 3.0 % 713-8) BASO % (test code = 0.4 % 706-2) GRAN MAT x10^3(ANC) 3.23 10*3/uL 1.88-7.09 (test code = 4675906408) IMM GRAN x10^3 (test <0.03 0.00-0.06 code = 4545561565) LYMPH x10^3 (test code 1.22 10*3/uL 1.32-3.29 L = 731-0) MONO x10^3 (test code 0.34 10*3/uL 0.33-0.92 = 742-7) EOS x10^3 (test code = 0.15 10*3/uL 0.03-0.39 711-2) BASO x10^3 (test code <0.03 0.01-0.07 = 704-7) Lab Interpretation Abnormal (test code = 68844-5) [facility] [id number] 21:53:57 Test Item Value Reference Range Interpretation Comments ABO & RH (test code A POSITIVE Performe d at [facility] = 20) Laboratory Serv [facility]3 [facility] s [address]Wcum Free: [phone] A No. [id number] IAT (test code = Negative Performed a t [facility] 1185) Laboratory Serv [facility] s [address]Jiva Free: [phone] A No. [id number] [facility]Type [facility] Screen - This is a pre-surgical type and screen. ONCE [id number] 21:53:57 Test Item Value Reference Range Interpretation Comments ABO & RH (test code A POSITIVE Performe d at [facility] = 20) Laboratory [facility] [address] [place] [address] s [address]Ecqo Free: [phone] A No. [id number] IAT (test code = Negative Performed a t [facility] 1185) Laboratory [facility] [place] [address] s [address]Szpb Free: [phone] A No. [id number] [facility] [id number] 21:53:57 Test Item Value Reference Range Interpretation Comments ABO & RH (test code A POSITIVE Performe d at [facility] = 20) Laboratory [facility] [address] [place] [address] s [address]Afsn Free: [phone] A No. [id number] IAT (test code = Negative Performed a t [facility] 1185) Laboratory [facility] [place] [address] s [address]Gywn Free: [phone] A No. [id number] [facility] Screen - This is a pre-surgical type and screen. ONCE [id number] 21:53:57 Test Item Value Reference Range Interpretation Comments ABO & RH (test code A POSITIVE Performe d at [facility] = 20) Laboratory [facility] [address] [place] [address] s [address]Shue Free: [phone] A No. [id number] IAT (test code = Negative Performed a t [facility] 1185) Laboratory [facility] [place] [address] s [address]Naxh Free: [phone] A No. [id number] [facility] BranchType [facility] Screen - ONCE [id number] 21:53:57 Test Item Value Reference Range Interpretation Comments ABO & RH (test code A POSITIVE Performe d at [facility] = 20) Laboratory Serv [facility]3 [address] [facility] s [address]Tpta Free: [phone] A No. [id number] IAT (test code = Negative Performed a t [facility] 1185) Laboratory [facility] [place] [address] s [address]Neri Free: [phone] A No. [id number] [facility] This is a pre-surgical type and screen. ONCE [id number] 21:53:57 Test Item Value Reference Range Interpretation Comments ABO & RH (test code A POSITIVE Performe d at [facility] = 20) Laboratory [facility] [address] [place] [address] s [address]Nbgg Free: [phone] A No. [id number] IAT (test code = Negative Performed a t [facility] 1185) Laboratory [facility] [place] [address] s [address]Ctkq Free: [phone] A No. [id number] [facility] [id number] 20:12:00 Test Item Value Reference Range Interpretation Comments POCT PREG (test code = 1605) Negative On board controls acceptable with C Yes Line (test code = 3574) POCT PREG LOT # (test code = 3575) POCT PREG TEST DATE (test code = 3576) [facility] [id number] 20:12:00 Test Item Value Reference Range Interpretation Comments POCT PREG (test code = 1605) Negative On board controls acceptable with C Yes Line (test code = 3574) POCT PREG LOT # (test code = 3575) POCT PREG TEST DATE (test code = 3576) [facility] [id number] 20:12:00 Test Item Value Reference Range Interpretation Comments POCT PREG (test code = 1605) Negative On board controls acceptable with C Yes Line (test code = 3574) POCT PREG LOT # (test code = 3575) POCT PREG TEST DATE (test code = 3576) [facility] W/AUTO [id number] 08:31:00 Test Item Value Reference Range Interpretation [...] REQUIRED (test code = PLTMR) CBC W/AUTO [id number] 13:59:00 Test Item Value Reference Range Interpretation [...] STEVE.RE AD BACK & CONFIRME D? Y.BY [id number] 05/04/21 1356 IMMATURE PLATELET 6.0 % 0.0-10.8 [...] REQUIRED (test code = PLTMR) CBC W/AUTO [id number] 00:52:00 Test Item Value Reference Range Interpretation Comments WHITE BLOOD CELL (test 6.5 K/mm3 6.5-12.3 N code = WBC) RED BLOOD CELL (test 2.45 M/mm3 3.51-4.69 L code = RBC) HEMOGLOBIN (test code = 6.4 g/dL 10.1-13.8 LL RESU LTS CALLED TO HGB) CLIFOFRD DAHLIA AD BACK & CONFIRME D? YBY [id number] 05/04/21 0025 HEMATOCRIT (test code = 21.5 [...] REQUIRED (test code = PLTMR) COMPREHENSIVE METABOLIC [id number] 00:38:00 Test Item Value Reference Range Interpretation [...] units/L 46-116 N code = ALKP) PROTHROMBIN [id number] 00:35:00 Test Item Value Reference Range Interpretation Comments PROTHROMBIN TIME PATIENT (test code 13.6 secs 10.1-12.3 H = PTP) THROMBOPLASTIN TIME [id number] 00:35:00 Test Item Value Reference Range Interpretation Comments THROMBOPLASTIN TIME PARTIAL (test 30.6 secs 22-38 N code = PTT) - DUP AB/PEL/SC/[id number] 00:00:00 [facility] SANTIAGO : 1985 Sex: F Patient Name: SEKOU CAMPBELL Unit No: [id number] EXAMS: CPT CODE: [id number] DUP AB/PEL/SC/LTD 43250 PROCEDURE INFORMATION: Exam: US Pelvis Complete (Transabdominal), [...] and signed by: Reza Alexandre MD [facility] NAME: SEKOU CAMPBELL Radiology Department PHYS: LASHELLMICHELLEPercy Chelo Ramírez MD [address] : 1985 AGE: 35 SEX: F [place] [address] LOC: Maya.ERS PHONE #: [phone] EXAM DATE: 05/04/2021 STATUS: REG ER FAX #: [phone] RAD NO: Page 1 Signed Report (CONTINUED) Patient Name: SEKOU CAMPBELL Unit No: [id number] EXAMS: CPT CODE: [id number] DUP AB/PEL/SC/LTD 58372 (Continued) CC: Chelo Ramírez MD Technologist: Griselda Streeter RDMS Probe: Trnscrbd D/ (0121) GCD.CPS Orig Print D/T: S: 05/04/2021 (0124) [facility] NAME: SEKOU CAMPBELL MICHAELWEI Radiology Department PHYS: MICHELLE Chelo Ramírez MD [address] : 1985 AGE: 35 SEX: F [place] [address] LOC: Maya.ERS PHONE #: [phone] EXAM DATE: 05/04/2021 STATUS: REG ER FAX #: [phone] RAD NO: Page 2 Signed Report Patient Name: SEKOU CAMPBELL Unit No: [id number] EXAMS: CPT CODE: [id number] DUP AB/PEL/SC/LTD 98015 (Continued) [facility] NAME: SEKOU CAMPBELL MICHAELCANTON Radiology Department PHYS: KHAH Chelo Ramírez MD [address] : 1985 AGE: 35 SEX: F [place], [place] [address] LOC: JOSSUE PHONE #: [phone] EXAM DATE: 05/04/2021 STATUS: GERBER ER FAX #: [phone] RAD NO: Page 3 Signed Report- US PELVIS [id number] [facility]:00:[facility] 1985 Sex: F Patient Name: SEKOU CAMPBELL Unit No: [id number] EXAMS: CPT CODE: [id number] US PELVIS COMPLETE 68731 PROCEDURE INFORMATION: Exam: US Pelvis Complete (Transabdominal), [...] and signed by: Reza Alexandre MD [facility] NAME: SEKOU CAMPBELL Radiology Department PHYS: KHAHE. Chelo Ramírez MD [address] : 1985 AGE: 35 SEX: F [place], [place] [address] LOC: LiatERS PHONE #: [phone] EXAM DATE: 05/04/2021 STATUS: REG ER FAX #: [phone] RAD NO: Page 1 Signed Report (CONTINUED) Patient Name: SEKOU CAMPBELL Unit No: [id number] EXAMS: CPT CODE: [id number] US PELVIS COMPLETE 67231 (Continued) CC: Chelo Ramírez MD Technologist: Griselda Streeter RDMS Probe: Trnscrbd D/ (0121) GCD.CPS Orig Print D/T: S: 05/04/2021 (0121) [facility] NAME: SEKOU CAMPBELL Radiology Department PHYS: CRISTIAN Schrader Chelo Ramírez MD [address] : 1985 AGE: 35 SEX: F [place], [place] [address] LOC: F.ERS PHONE #: [phone] EXAM DATE: 05/04/2021 STATUS: REG ER FAX #: [phone] RAD NO: Page 2 Signed Report Patient Name: SEKOU CAMPBELL Unit No: [id number] EXAMS: CPT CODE: [id number] US PELVIS COMPLETE 37945 (Continued) [facility] NAME: SEKOU CAMPBELL Radiology Department PHYS: Chelo Ramírez MD [address] : 1985 AGE: 35 SEX: F [place] [address] LOC: F.ERS PHONE #: [phone] EXAM DATE: 05/04/2021 STATUS: REG ER FAX #: [phone] RAD NO: Page 3 Signed Report- US TRANSVAGINAL [id number] 00:00:00 [facility] 1985 Sex: F Patient Name: SEKOU CAMPBELL Unit No: [id number] EXAMS: CPT CODE: [id number] US TRANSVAGINAL W/PELVIS 47279 PROCEDURE INFORMATION: Exam: US Pelvis Complete (Transabdominal), [...] and signed by: Reza Alexandre MD [facility] NAME: SEKOU CAMPBELL Radiology Department PHYS: Chelo Ramírez MD [address]OB: 1985 AGE: 35 SEX: F [place] [address] LOC: Maya.ERS PHONE #: [phone] EXAM DATE: 05/04/2021 STATUS: REG ER FAX #: [phone] RAD NO: Page 1 Signed Report (CONTINUED) Patient Name: SEKOU CAMPBELL Unit No: [id number] EXAMS: CPT CODE: [id number] US TRANSVAGINAL W/PELVIS 47242 (Continued) CC: Chelo Ramírez MD Technologist: Griselda Streeter, [facility] Probe: [id number] Trnscrbd D/ (0121) GCD.CPS Orig Print D/T: S: 05/04/2021 (0122) [facility] NAME: SEKOU CAMPBELL Radiology Department PHYS: Chelo Ramírez MD [address] : 1985 AGE: 35 SEX: F [place] [address] LOC: LiatERS PHONE #: [phone] EXAM DATE: 05/04/2021 STATUS: REG ER FAX #: [phone] RAD NO: Page 2 Signed Report Patient Name: SEKOU CAMPBELL Unit No: [id number] EXAMS: CPT CODE: [id number] US TRANSVAGINAL W/PEL VIS 89477 (Continued) [facility] NAME: SEKOU CAMPBELL Radiology Department PHYS: DEMIAN Chelo Ramírez MD [address] : 1985 AGE: 35 SEX: F [place] [address] LOC: Maya.ERS PHONE #: [phone] EXAM DATE: 05/04/2021 STATUS: REG ER FAX #: [phone] RAD NO: Page 3 Signed Report- DUP VEIN [id number] 08:04:00 [facility] : 1985 Sex: F Patient Name: SEKOU CAMPBELL Unit No: [id number] EXAMS: CPT CODE: [id number] DUP VEIN SAMANTHA 28908 BILATERAL LOWER EXTREMITY DUPLEX VENOUS DOPPLER ULTRASOUND, [...] Orig Print D/T: S: 05/04/2020 (0807) [facility] NAME: SEKOU CAMPBELL Radiology Department PHYS: Magdalena Borrego MD [address] : 1985 AGE: 34 SEX: F [place] [address] LOC: LiatIC4 A PHONE #: EXAM DATE: 05/04/2020 STATUS: ADM IN FAX #: [phone] RAD NO: Page 1 Signed Report Patient Name: SEKOU CAMPBELL Unit No: [id number] EXAMS: CPT CODE: [id number] DUP VEIN SAMANTHA 48046 (Continued) [facility] NAME: SEKOU CAMPBELL Radiology Department PHYS: Magdalena Reyes MD [address] : 1985 AGE: 34 SEX: F [place], [place] [address] LOC: ROMAIN Saunders PHONE #: [phone] EXAM DATE: 05/04/2020 STATUS: ADM IN FAX #: [phone] RAD NO:Page 2 Signed ReportCBC W/AUTO DIFF [...] NORMAL REQUIRED (test code = PLTMR) WBC [id number] 04:57:00 Test Item Value Reference Range Interpretation [...] NORMAL A code = PLTMORPH) CBC W/AUTO [id number] 04:56:00 Test Item Value Reference Range Interpretation [...] NORMAL REQUIRED (test code = PLTMR) WBC [id number] 04:56:00 Test Item Value Reference Range Interpretation Comments SEGMENTED NEUTROPHILS (test code = SEG) % 56.5-79.4 LYMPHOCYTE (test code = LYMPH) % 20-40 CBC W/AUTO [id number] 04:56:00 Test Item Value Reference Range Interpretation [...] NORMAL REQUIRED (test code = PLTMR) WBC [id number] 04:56:00 Test Item Value Reference Range Interpretation Comments SEGMENTED NEUTROPHILS (test code = SEG) % 56.5-79.4 LYMPHOCYTE (test code = LYMPH) % 20-40 COMPREHENSIVE METABOLIC [id number] 04:39:00 Test Item Value Reference Range Interpretation [...] 46-116 N code = ALKP) CBC W/AUTO [id number] 19:13:00 Test Item Value Reference Range Interpretation Comments WHITE BLOOD CELL 5.9 K/mm3 6.6-12.1 L (test code = WBC) RED BLOOD CELL (test 2.60 M/mm3 3.45-5.01 L code = RBC) HEMOGLOBIN (test 6.9 g/dL 10.7-13.9 L RESULTS FERMIN IFIED BY code = HGB) REPEAT ANALYSIS RESULTS CALLED TO GIANNA VERDUGOREAD BACK & CONFIRME D? Y.BY F.LAB.[facility] 05/03. HEMATOCRIT (test [...] PLT) SUREKHA.READ BA CK & CONFIRMED? Y.BY F.LAB.[facility] 05/03 IMMATURE PLATELET [...] REQUIRED (test code PRESENT = PLTMR) LACTIC [id number] 19:05:00 Test Item Value Reference Range Interpretation Comments LACTIC ACID (test 4.5 MMOL/L 0.5-2.2 HH RESULTS CA LLED TO code = LACT) MARIBEL.READ BACK & CONFIRMED? YES. BY GlenAS04 04/17. COMPREHENSIVE METABOLIC [id number] 19:01:00 Test Item Value Reference Range Interpretation [...] 60 units/L 46-116 code = ALKP) PROTHROMBIN [id number] 19:01:00 Test Item Value Reference Range Interpretation Comments PROTHROMBIN TIME PATIENT (test code 13.3 secs 10.4-12.4 H = PTP) THROMBOPLASTIN TIME [id number] 19:01:00 Test Item Value Reference Range Interpretation Comments THROMBOPLASTIN TIME PARTIAL (test 20.6 secs 22-38 L code = PTT) [id number] 19:01:00 Test Item Value Reference Range Interpretation Comments FIBRINOGEN (test code = FIB) 141 mg/dL 309-518 L UA RFLX MICR CULT IF [id number] 12:47:00 Test Item Value Reference Range Interpretation [...] RiskForSepsis-no oth srcSpecimen Description: CLEAN CATCHUR HCG [id number] 12:47:00 Test Item Value Reference Range Interpretation [...] Description: CLEAN CATCHUA RFLX MICR CULT IF [id number] 12:36:00 Test Item Value Reference Range Interpretation [...] RiskForSepsis-no oth srcSpecimen Description: CLEAN CATCHUR HCG [id number] 12:36:00 Test Item Value Reference Range Interpretation [...] culture: RiskForSepsis-no oth srcSpecimen Description: CLEAN CATCHPROTHROMBIN [id number] 10:14:00 Test Item Value Reference Range Interpretation Comments PROTHROMBIN TIME PATIENT (test code 13.3 secs 10.4-12.4 H = PTP) THROMBOPLASTIN TIME [id number] 10:14:00 Test Item Value Reference Range Interpretation Comments THROMBOPLASTIN TIME PARTIAL (test 19.4 secs 22-38 L code = PTT) [id number] 10:14:00 Test Item Value Reference Range Interpretation Comments FIBRINOGEN (test code = FIB) 102 mg/dL 309-518 L COMPREHENSIVE METABOLIC [id number] 09:54:00 Test Item Value Reference Range Interpretation [...] units/L 46-116 N code = ALKP) HGB [id number] 06:49:00 Test Item Value Reference Range Interpretation [...]
[2022-04-07] MEDS ORDERED: ACETAMINOPHEN 500 MG TAB ONE (10:11)
[2022-04-07 11:42] LABS: SARS-COV-2 RT PCR NEGATIVE (NEGATIVE)
--- NOTE | 2022-04-07 11:49 | ER ---
Nurse's Notes [facility] Name: Bri Boyd Age: 36 yrs Sex: Female : 1985 Arrival Date: 04/07/2022 Time: 09:53 Bed 5 Private MD: Diagnosis: Influenza due to identified novel influenza A virus Presentation: 04/07 10:16 Chief complaint: Patient states: fever, b moy aches, cough, congestion and sore throat ss x 4 days. Coronavirus screen: Client denies travel out of the [place] in the last 14 days. Ebola Screen: Patient denies exposure to infectious person. Patient denies travel to an Ebola-affected area in the 21 days before illness onset. Initial Sepsis Screen: Does the patient meet any 2 criteria? No. Patient's initial sepsis screen is negative. Does the patient have a suspected source of infection? No. Patient's initial sepsis screen is negative. Risk Assessment: Do you want to hurt yourself or someone else? Patient reports no desire to harm self or others. Onset of symptoms was April 03, 2022. 10:16 Method Of Arrival: Wheelchair ss 10:16 Acuity: KARIE 4 ss Historical: - Allergies: 10:19 Aspirin; ss 10:19 IV IRON; ss 10:19 NSAIDS; ss - PMHx: 10:19 Anemia; Glanzmann Thrombasthenia; ss - PSHx: 10:19 section; ss - Immunization history:: Client reports having NOT received the Covid vaccine. - Social history:: Smoking status: Patient denies any tobacco usage or history of. Screenin:15 Abuse screen: Denies threats or abuse. Nutritional screening: No deficits noted. aa5 Tuberculosis screening: No symptoms or risk factors identified. 10:15 [facility] ED Fall Risk Assessment (Adult) History of falling in the last 3 months, aa5 including since admission No falls in past 3 months (0 pts) Confusion or Disorientation No (0 pts) Intoxicated or Sedated No (0 pts) Impaired Gait No (0 pts) Mobility Assist Device Used No (0 pt) Altered Elimination No (0 pt) Score/Fall Risk Level 0 - 2 = Low Risk. Assessment: 10:15 General: Appears uncomfortable, Behavior is calm, cooperative. Pain: Complains of pain aa5 in whole body Quality of pain is described as aching, Pain began 2-3 days ago. Neuro: Level of Consciousness is awake, alert, obeys commands, Oriented to person, place, time, situation. Cardiovascular: Heart tones S1 S2 present Rhythm is regular. Respiratory: Reports cough, congestion Airway is patent Respiratory effort is even, unlabored, Respiratory pattern is regular, symmetrical, Breath sounds are clear bilaterally. GI: Abdomen is flat, non-distended, Bowel sounds present X 4 quads. Abd is soft and non tender X 4 quads. : No signs and/or symptoms were reported regarding the genitourinary system. EENT: Reports sore throat, nasal congestion. . Derm: Skin is dry, Skin is normal, Skin temperature is hot. Musculoskeletal: Range of motion: intact in all extremities. 11:14 Reassessment: Pt resting in bed with eyes closed. . aa5 12:09 Reassessment: Patient states symptoms have improved. Neuro: Level of Consciousness is aa5 awake, alert, obeys commands, Oriented to person, place, time, situation. Respiratory: Airway is patent Respiratory effort is even, unlabored, Respiratory pattern is regular, symmetrical. Derm: Skin is dry, Skin is normal, Skin temperature is warm. Vital Signs: 10:16 BP 105 / 61; Pulse 105; Resp 18; Temp 102.1; Pulse Ox 100% on R/A; ss 11:14 Pulse 99; Resp 20 S; Temp 102.3(O); Pulse Ox 100% on R/A; aa5 11:48 Pulse 98; Resp 18 S; Temp 101.2(O); Pulse Ox 100% on R/A; aa5 ED Course: 09:53 Patient arrived in ED. mr 09:53 Jonathan Chaves PA is PHCP. jmm 09:53 Porfirio Chun MD is Attending Physician. jmm 09:54 PHCP role handed off by Jonathan Chaves PA kb 09:54 Paz David FNP-C is PHCP. kb 10:04 Lynne Wan, RN is Primary Nurse. kc6 10:09 Dianelys Cosme, RN is Primary Nurse. aa5 10:15 Arm band placed on right wrist. aa5 10:15 Patient has correct armband on for positive identification. aa5 10:18 Triage completed. ss 12:09 No provider procedures requiring assistance completed. Patient did not have IV access aa5 during this emergency room visit. Administered Medications: 10:13 Drug: Tylenol 1000 mg Route: PO; ss 11:48 Follow up: Response: Temperature is decreased aa5 Medication: 10:15 VIS not applicable for this client. aa5 Outcome: 11:48 Discharge ordered by . nereyda 12:09 Discharged to home ambulatory, with family. aa5 12:09 Condition: improved 12:09 Discharge instructions given to patient, Instructed on discharge instructions, follow up and referral plans. Demonstrated understanding of instructions, follow-up care. 12:10 Patient left the ED. aa5 Signatures: Paz David, SOFTBALL UMPIRE-C SOFTBALL UMPIRE-Ckb Jonathan Chaves PA PA jmm Rivera, Mary mr CosmeDianelys, RN RN aa5 Aggie Martinez RN RN ss Lynne Wan RN RN kc6 Corrections: (The following items were deleted from the chart) 10:33 10:19 Arm band placed on right wrist. ss aa5
--- NOTE | 2022-04-07 11:49 | EDPHYS ---
Physician Documentation [facility] Name: Bri Boyd Age: 36 yrs Sex: Female : 1985 Arrival Date: 04/07/2022 Time: 09:53 Bed 5 Private MD: ED Physician Porfirio Chun HPI: 04/07 10:20 This 36 yrs old Female presents to ER via Wheelchair with complaints of Fever. kb 10:20 The patient or guardian reports cough, flu symptoms, low-grade fever, myalgias. Onset: kb The symptoms/episode began/occurred 4 day(s) ago. Severity of symptoms: At their worst the symptoms were moderate, in the emergency department the symptoms are unchanged. Modifying factors: The symptoms are alleviated by nothing, the symptoms are aggravated by nothing. Associated signs and symptoms: Pertinent positives: diarrhea, fever, rhinorrhea, sore throat, Pertinent negatives: chest pain, ear ache, nausea, vomiting. The patient has not experienced similar symptoms in the past. The patient has not recently seen a physician. Pt reports diarrhea, cough, congestion, bodyaches, fever and sore throat for 4 days. . Historical: - Allergies: 10:19 Aspirin; ss 10:19 IV IRON; ss 10:19 NSAIDS; ss - PMHx: 10:19 Anemia; Glanzmann Thrombasthenia; ss - PSHx: 10:19 section; ss - Immunization history:: Client reports having NOT received the Covid vaccine. - Social history:: Smoking status: Patient denies any tobacco usage or history of. ROS: 10:20 Cardiovascular: Negative for chest pain, palpitations, and edema. kb 10:20 Constitutional: Positive for body aches, fever, malaise. 10:20 ENT: Positive for sinus congestion, sore throat. 10:20 Respiratory: Positive for cough, Negative for dyspnea on exertion, hemoptysis, orthopnea, pleurisy, shortness of breath, sputum production, wheezing. 10:20 Abdomen/GI: Positive for diarrhea, Negative for abdominal pain, nausea and vomiting. 10:20 All other systems are negative. Exam: 10:20 Constitutional: This is a well developed, well nourished patient who is awake, alert, kb and in no acute distress. Head/Face: Normocephalic, atraumatic. ENT: Moist Mucous membranes Cardiovascular: Regular rate and rhythm with a normal S1 and S2. No gallops, murmurs, or rubs. No pulse deficits. Respiratory: Respirations even and unlabored. No increased work of breathing. Talking in full sentences Abdomen/GI: Soft, non-tender. No distention Skin: Warm, dry with normal turgor. Normal color. MS/ Extremity: Pulses equal, no cyanosis. Neurovascular intact. Full, normal range of motion. Neuro: Awake and alert, GCS 15, oriented to person, place, time, and situation. Moves all extremities. Normal gait. Vital Signs: 10:16 BP 105 / 61; Pulse 105; Resp 18; Temp 102.1; Pulse Ox 100% on R/A; ss 11:14 Pulse 99; Resp 20 S; Temp 102.3(O); Pulse Ox 100% on R/A; aa5 11:48 Pulse 98; Resp 18 S; Temp 101.2(O); Pulse Ox 100% on R/A; aa5 MDM: 09:54 Patient medically screened. kb 10:20 Data reviewed: vital signs, nurses notes. Data interpreted: Pulse oximetry: on room air kb is 100 %. Interpretation: normal. 11:43 Counseling: I had a detailed discussion with the patient and/or guardian regarding: the kb historical points, exam findings, and any diagnostic results supporting the discharge/admit diagnosis, lab results, the need for outpatient follow up, a family practitioner, to return to the emergency department if symptoms worsen or persist or if there are any questions or concerns that arise at home. 04/07 10:03 Order name: COVID-19/FLU A+B/RSV; Complete Time: 11:43 kb 04/07 11:43 Order name: Vital Signs; Complete Time: 11:48 kb Administered Medications: 10:13 Drug: Tylenol 1000 mg Route: PO; ss 11:48 Follow up: Response: Temperature is decreased aa5 Disposition Summary: 04/07/22 11:48 Discharge Ordered Location: Home kb Condition: Stable kb Diagnosis - Influenza due to identified novel influenza A virus kb Followup: kb - With: Emergency Department - When: As needed - Reason: Worsening of condition Followup: kb - With: Private Physician - When: 2 - 3 days - Reason: Recheck today's complaints, Continuance of care, Re-evaluation by your physician Discharge Instructions: - Discharge Summary Sheet kb - Influenza, Adult, [id number] kb Forms: - Medication Reconciliation Form kb - Thank You Letter kb - Antibiotic Education kb - Prescription Opioid Use kb Signatures: Dispatcher [employer] Paz Purvis, KODI-C KODI-Aggie Agosto RN RN ss Dianelys Cosme RN aa5
[2022-04-07 12:19] VITALS: BP 105/61; O2SAT 100
[2022-04-07 12:21] VITALS: TEMP 101.2
== END 2022-04-07 12:10 | disposition home or self-care (01) ==
LOC: ER 09:49
DX: J10.1 Influenza due to other identified influenza virus with other respiratory manifestations (principal); Z20.822 Contact with and (suspected) exposure to COVID-19; Z88.6 Allergy status to analgesic agent
CPT/HCPCS: 0241U; 99283

== ENCOUNTER 2022-04-26 17:30 | Inpatient (IN) | payer SELFPAY ==
--- OUTSIDE RECORDS SUMMARY | 2022-04-26 17:59 | XMS REPORT | Continuity of Care Document ---
:1985 Author Organization [facility] t Address [address] [place] [address] Care Team Providers Name Role Phone Rimma [...] Chanel Fabian MD Attending Clinician Doctor Unassigned, [place] Attending Clinician Unavailable Jerod RINCON, Erma Monroe Attending Clinician Pranav SANDRA, Matias Attending Clinician MATIAS CRUZ Attending Clinician Unavailable RUTHY LOCO Attending Clinician Unavailable Nicole Chappell Attending Clinician Unavailable DEBRA LÓPEZ Attending Clinician Unavailable Bird Reis DO Attending Clinician Misael RINCON, Aracelis Attending Clinician Unavailable Samuel RINCON, Melinda Gillette Attending Clinician Unavailable Jesse Woods MD Attending Clinician Visit, [facility] Nurse Attending Clinician Unavailable Angela CNP, Allie Anne Attending Clinician [phone] Roger MOTOR VEHICLE COMPLIANCE ANALYST, Rimma Guadalupe Attending Clinician Won SANDRA, Gilson Wren Attending Clinician [phone] Rocío SANDRA, Alla Lion Attending Clinician Syd MOTOR VEHICLE COMPLIANCE ANALYST, Max Mayfield Attending Clinician Dl SANDRA, Ree Attending Clinician Ultrasound, [facility] Attending Clinician Unavailable Mila Ferguson Attending Clinician Risk, [facility]/High Attending Clinician Unavailable David, [facility] Resident Attending Clinician Unavailable Teresa SANDRA, Inga Chowdary Attending Clinician Chacorta Clark MD Attending Clinician 2, [facility] Room Attending Clinician Unavailable Ruba Chris MD Attending Clinician Faculty, [facility] Attending Clinician Unavailable Emy Marycruz TAMAYO Attending Clinician Lorrie Olmos MD Attending Clinician Kyle Cordero Attending Clinician Calvin Patel Attending Clinician 5, [facility] Room Attending Clinician [...] Number Effective Date Expiration Date Amisha navarro [facility] CASEBOOK [id number] 2021 2022 00:00:00 00:00:00 MEDICAID PENDING PENDING 2021 00:00:00 [facility] [id number] 2018 CHOICE MEDICAID 00:00:00 Problems Condition Condition Condition Status Onset Resolution Last Treating Co mments Source Name Details Category Date Date Treatment Clinician Date Acute Acute Disease Active Univers blood loss blood loss 6-22 it y of anemia anemia 00:00: [place] [facility] Menorrhagi Menorrhagi Disease Active U nivers a with a with 6-13 [place] irregular [place] Anemia Anemia Disease Active Univers 5-10 ity of 00:00: [place] [facility] Abnormal Abnormal Disease Active 2018-04 Unive rs TSH TSH 0-18 ity of 00:00: [place] [facility] Fatty Fatty Disease Active 2018-04 Univers liver liver 0-18 ity of 00:00: [place] [address] Medical Branch Other Other Disease Active 2018-04 Univers fatigue fatigue 0-18 ity of 00:00: [place] [facility] Severe Severe Disease Active Univers pre-eclamp [...] 2021-10-11 2021-10-11 0 /d University 00:00:00 00:00:00 [facility] Exposure to 2021-09-25 2021-10-05 Not sure [facility] SARS-CoV-2 (event) 00:00:00 09:00:00 [facility] Education 2021-08-24 2021-08-24 14 University 00:00:00 00:00:00 [facility] Tobacco Comment 2018-05-29 2018-05-29 1 pack per week; Uni versity of 00:00:00 00:00:00 quit 2015 [facility] Tobacco use and 2018-05-29 2018-05-29 Smokeless Universit y of exposure 00:00:00 00:00:00 tobacco non-user [facility] smoked 2018-05-29 2018-05-29 Univers ity of current (pack per 00:00:00 00:00:00 [facility] [place] [facility] ) - Reported Branch Cigarette 2018-05-29 2018-05-29 University of pack-years 00:00:00 00:00:00 [facility] History of tobacco 2015-06-21 Cigarette Smoker University of use 00:00:00 [facility] Sex Ass[birth year] At [birth year] Universit y of 00:00:00 00:00:00 [facility] Smoking Status Start Date Stop Date Source Ex-smoker 2018-05-29 00:00:00 2018-05-29 00:00:00 Universi ty [facility] [place] Medications Ordered Filled Start Stop Current Ordering [...] ity of mg (60 mg 00:58: Q48H, [place] iron)/5 mL 00 First dose Med ical solution (after Branch 300 mg last modificati on) on Mon10/12/21 at 1999, Until Discontinu ed, Routine polyethylen Yes [id number] 17g Take 1 Univers e glycol 6-29 Packet by ity of 3350 17 00:00: mouth [place] gram powder 00 daily. Medica l Branch polyethylen Yes [id number] 17g Take 1 Univers e glycol 6-29 Packet by ity of 3350 17 00:00: mouth [place] gram powder 00 daily. Medica l Branch polyethylen Yes [id number] 17g Take 1 Univers e glycol 6-29 Packet by ity of 3350 17 00:00: mouth [place] gram powder 00 daily. Medica l Branch polyethylen Yes [id number] 17g Take 1 Univers e glycol 6-29 Packet by ity of 3350 17 00:00: mouth [place] gram powder 00 daily. Medica l Branch polyethylen Yes [id number] 17g Take 1 Univers e glycol 6-29 Packet by ity of 3350 17 00:00: mouth [place] gram powder 00 daily. Medica l Branch polyethylen Yes [id number] 17g Take 1 Univers e glycol 6-29 Packet by ity of 3350 17 00:00: mouth [place] gram powder 00 daily. Medica l Branch polyethylen Yes [id number] 17g Take 1 Univers e glycol 6-29 [...] (Faculty): [facility] gabapentin 0 Yes [id number] 300mg Take 1 Univers 300 mg 6-28 [...] Indication s: acute pain methocarbam 0 Yes [id number] 500mg Take 1 Univers oL 500 mg 6-28 tablet by ity o f tablet 00:00: mouth 4 [place] 00 (four) Medical times Branch daily as needed for Pain (scale 4-6). phenazopyri 0 Yes [id number] 200mg Take 1 Univers dine 200 mg 6-28 tablet by ity of tablet 00:00: mouth 3 [place] 00 (three) Medical times Branch daily. sennosides- 2021-0 Yes [id number] 1{tbl} Take 1 Univers docusate 6-28 tablet by ity of sodium 00:00: mouth 2 [place] 8.6-50 mg 00 (two) Medical per tablet times Branch daily. simethicone 0 Yes [id number] 160mg Take 2 Univers 80 mg 6-28 tablets by ity of chewable 00:00: mouth [place] tablet 00 after Medical meals and Branch at bedtime. gabapentin 2022-0 Yes [id number] 300mg Take 1 Univers 300 mg 6-28 [...] Indication s: acute pain methocarbam 2022-0 Yes [id number] 500mg Take 1 Univers oL 500 mg 6-28 tablet by ity o f tablet 00:00: mouth 4 [place] 00 (four) Medical times Branch daily as needed for Pain (scale 4-6). phenazopyri 2021-0 Yes [id number] 200mg Take 1 Univers dine 200 mg 6-28 tablet by ity of tablet 00:00: mouth 3 [place] 00 (three) Medical times Branch daily. sennosides- 2021-0 Yes [id number] 1{tbl} Take 1 Univers docusate 6-28 tablet by ity of sodium 00:00: mouth 2 [place] 8.6-50 mg 00 (two) Medical per tablet times Branch daily. simethicone 2021-0 Yes [id number] 160mg Take 2 Univers 80 mg 6-28 tablets by ity of chewable 00:00: mouth [place] tablet 00 after Medical meals and Branch at bedtime. gabapentin 2021-0 Yes [id number] 300mg Take 1 Univers 300 mg 6-28 [...] Indication s: acute pain methocarbam 2022-0 Yes [id number] 500mg Take 1 Univers oL 500 mg 6-28 tablet by ity o f tablet 00:00: mouth 4 [place] 00 (four) Medical times Branch daily as needed for Pain (scale 4-6). phenazopyri 2022-0 Yes [id number] 200mg Take 1 Univers dine 200 mg 6-28 tablet by ity of tablet 00:00: mouth 3 [place] 00 (three) Medical times Branch daily. sennosides- 2021-0 Yes [id number] 1{tbl} Take 1 Univers docusate 6-28 tablet by ity of sodium 00:00: mouth 2 [place] 8.6-50 mg 00 (two) Medical per tablet times Branch daily. simethicone 2021-0 Yes [id number] 160mg Take 2 Univers 80 mg 6-28 tablets by ity of chewable 00:00: mouth [place] tablet 00 after Medical meals and Branch at bedtime. gabapentin 2021-0 Yes [id number] 300mg Take 1 Univers 300 mg 6-28 [...] Indication s: acute pain methocarbam 2021-0 Yes [id number] 500mg Take 1 Univers oL 500 mg 6-28 tablet by ity o f tablet 00:00: mouth 4 [place] 00 (four) Medical times Branch daily as needed for Pain (scale 4-6). phenazopyri 2021-0 Yes [id number] 200mg Take 1 Univers dine 200 mg 6-28 tablet by ity of tablet 00:00: mouth 3 [place] 00 (three) Medical times Branch daily. sennosides- 2021-0 Yes [id number] 1{tbl} Take 1 Univers docusate 6-28 tablet by ity of sodium 00:00: mouth 2 [place] 8.6-50 mg 00 (two) Medical per tablet times Branch daily. simethicone 2021-0 Yes [id number] 160mg Take 2 Univers 80 mg 6-28 tablets by ity of chewable 00:00: mouth [place] tablet 00 after Medical meals and Branch at bedtime. gabapentin 2021-0 Yes [id number] 300mg Take 1 Univers 300 mg 6-28 [...] Indication s: acute pain methocarbam 2022-0 Yes [id number] 500mg Take 1 Univers oL 500 mg 6-28 tablet by ity o f tablet 00:00: mouth 4 [place] 00 (four) Medical times Branch daily as needed for Pain (scale 4-6). phenazopyri 2022-0 Yes [id number] 200mg Take 1 Univers dine 200 mg 6-28 tablet by ity of tablet 00:00: mouth 3 [place] 00 (three) Medical times Branch daily. sennosides- 2021-0 Yes [id number] 1{tbl} Take 1 Univers docusate 6-28 tablet by ity of sodium 00:00: mouth 2 [place] 8.6-50 mg 00 (two) Medical per tablet times Branch daily. simethicone 2021-0 Yes [id number] 160mg Take 2 Univers 80 mg 6-28 tablets by ity of chewable 00:00: mouth [place] tablet 00 after Medical meals and Branch at bedtime. gabapentin 2021-0 Yes [id number] 300mg Take 1 Univers 300 mg 6-28 [...] Indication s: acute pain methocarbam 2022-0 Yes [id number] 500mg Take 1 Univers oL 500 mg 6-28 tablet by ity o f tablet 00:00: mouth 4 [place] 00 (four) Medical times Branch daily as needed for Pain (scale 4-6). phenazopyri 2022-0 Yes [id number] 200mg Take 1 Univers dine 200 mg 6-28 tablet by ity of tablet 00:00: mouth 3 00 (three) Medical times Branch daily. sennosides- 2022-0 Yes [id number] 1{tbl} Take 1 Univers docusate 6-28 tablet by ity of sodium 00:00: mouth 2 [place] 8.6-50 mg 00 (two) Medical per tablet times Branch daily. simethicone 0 Yes [id number] 160mg Take 2 Univers 80 mg 6-28 tablets by ity of chewable 00:00: mouth [place] tablet 00 after Medical meals and Branch at bedtime. gabapentin 0 Yes [id number] 300mg Take 1 Univers 300 mg 6-28 [...] Indication s: acute pain methocarbam 0 Yes [id number] 500mg Take 1 Univers oL 500 mg 6-28 tablet by ity o f tablet 00:00: mouth 4 [place] 00 (four) Medical times Branch daily as needed for Pain (scale 4-6). phenazopyri Yes [id number] 200mg Take 1 Univers dine 200 mg 6-28 tablet by ity of tablet 00:00: mouth 3 [place] 00 (three) Medical times Branch daily. sennosides- 0 Yes [id number] 1{tbl} Take 1 Univers docusate 6-28 tablet by ity of sodium 00:00: mouth 2 [place] 8.6-50 mg 00 (two) Medical per tablet times Branch daily. simethicone 0 Yes [id number] 160mg Take 2 Univers 80 mg 6-28 [...] E)) 00 First dose Medical chewable on [facility] Branch tablet 160 10/11/21 at mg 0915, Until Discontinu ed, Routine simethicone Yes 160mg 160 mg, Un brayden (GAS RELIEF 10-11 Oral, ity of (SIMETHICON 14:15: PC[place]HS, [place] E)) 00 First dose Medical chewable on [facility] Branch tablet 160 10/11/21 at mg 0915, Until Discontinu ed, Routine simethicone 2021- No 120mg 120 mg, U nivers (GAS RELIEF 10-11 Oral, ity of (SIMETHICON 14:00: 14:11 PC+HS, [place] as E)) 00 :54 First dose Medical chewable on [facility] Branch tablet 120 10/11/21 at [...] 800 mg ity of tablet 17:07: tablet [place] 42 TAKE 1 Medical TABLET BY Branch [...] 100 mg ity of capsule 17:07: capsule [place] 42 TAKE 1 Medical CAPSULE BY Branch [...] [place] mg 00 :59 Starting Medical on [facility] Branch 10/09/21 at 2000, Until [place] 10/10/21 at 1550, SUSI, Insomnia magnesium No 2g 2 g, IV Univ ers sulfate in 10-09 Piggyback, it y of water 2 22:15: 00:43 Administer [place] as gram/50 mL 00 :00 over 60 Medica l (4 %) Minutes, Branch infusion 2 ONCE, 1 g dose, On [facility] 10/09/21 at 1715, SUSI D5W-LR IV [...] 00 CONTINUOUS Medical , Starting Branch on [facility] 10/09/21 at 1615, Until Discontinu ed, Routine HYDROmorpho 2021- No IV Unive rs ne 10 mg/50 10-09 Infusion, it y of mL 0.9% 16:45: 15:55 50 mL, [place] NaCL 00 :40 CONTINUOUS Medical (DILAUDID) , Starting Bra [facility] SHIPPING WEIGHER on 10/09/21 at 1145, Until 10/10/21 at 1055 acetaminoph 2021- No 650mg 650 mg, U nivers en 10-09 Oral, ity of (TYLENOL) 15:39: 15:55 Q6HPRN, [place] tablet 650 11 :40 Starting Medic al mg on Sat Branch 10/09/21 at 1039, Until 10/10/21 at 1055, Routine, Alternate with Schneider for pain scale 4-6 HYDROmorphO 2021- No [...] 10-09 Oral, ity of sodium 14:00: DAILY, [place] (SENOKOT-S) 00 First dose Me dical 8.6-50 [...] 17 g 00 First dose Medical on [facility] Branch 10/09/21 at 0900, Until Discontinu ed, Routine sennosides- 2021- No 1{tbl} 1 tablet, Univers docusate 10-09 Oral, ity of sodium 14:00: 12:21 DAILY, [place] (SENOKOT-S) 00 :42 First dose Me dical [...] [place] iron)/5 mL 00 :59 on [facility] Medical solution 10/09/21 at Bran h 300 mg 0800, Until Discontinu ed, Routine D5W-LR IV No 1000mL at 75 Univ ers infusion 10-09- mL/hr, IV ity o f 1,000 mL 10:45: 21:03 Infusion, [place] as 00 :24 CONTINUOUS Medical , Starting Branch on [facility] 10/09/21 at 0545, Until 10/09/21 at [...] cuff. FENTanyl 0 Yes 1000ug IV Univers SHIPPING WEIGHER 1,000 10-08 Infusion, ity o f mcg in NaCl 18:45: CONTINUOUS [place] 0.9%(NS) 00 , Starting Medic al 100 mL RTU on Mon Branch 10/08/21 at 1345, Until Discontinu ed, SUSI FENTanyl 2021-0 2021- No 1000ug IV Univer s SHIPPING WEIGHER 1,000 10-08 Infusion, ity of mcg in [...] 6-24 Oral, ity of (ROBAXIN) 14:03: QIDPRN, [place] tablet 500 00 Starting Medic al mg on Mon Branch 10/08/21 at 0903, Until Discontinu ed, SUSI, Muscle Spasms FENTanyl 2021-0 2021- No 1000ug IV Univer s SHIPPING WEIGHER 1,000 10-08- Infusion, ity of mcg in NaCl 10:45: 18:04 CONTINUOUS [place] 0.9%(NS) 00 :44 , Starting Medic al 100 mL RTU on Mon Branch 10/08/21 at 0545, Until Mon10/08/21 at 1304, SUSI ondansetron 2-0 Yes 4mg 4 mg, Slow Univers (ZOFRAN 6-24 IV Push, ity of (PF)) 09:47: Q6HPRN, [place] injection 4 52 Nausea and Me dical mg Vomiting Branch (N/V), Starting on Mon10/08/21 at 0447
Do ses of ondansetro n 16 mg and above need to be administer ed via IV piggyback. For Dose >=24mg ECG monitoring is advisable.
ondansetron 2-0 Yes 4mg 4 mg, Slow Univers (ZOFRAN 6-24 IV Push, ity of (PF)) 09:47: Q6HPRN, [place] injection 4 52 Nausea and Me dical mg Vomiting Branch (N/V), Starting on Mon10/08/21 at 0447
Do ses of ondansetro n 16 mg and above need to be administer ed via IV piggyback. For Dose >=24mg ECG monitoring is advisable.
ondansetron 2-0 Yes 4mg 4 mg, Slow Univers (ZOFRAN 6-24 IV Push, ity of (PF)) 09:47: Q6HPRN, [place] injection 4 52 Nausea and Me dical [...] ity of 0.9 % 07:00: on Mon [place] irrigation 10/08/21 at Med ical solution 0200, Branch Until Discontinu ed, Intra-op sodium 2021-0 Yes PRN, Univers chloride 10-08 Starting ity of 0.9 % 07:00: on Mon [place] irrigation 10/08/21 at Med ical solution 0200, Branch Until Discontinu ed, Intra-op sodium 2021-0 Yes PRN, Univers chloride 10-08 Starting ity of 0.9 % 07:00: on Mon [place] irrigation 10/08/21 at Med ical solution 0200, Branch Until Discontinu ed, Intra-op lactated 2021- No 500mL at 999 Unive rs ringers IV 10-08 mL/hr, 500 it y of infusion 06:45: 05:14 mL, [place] 500 mL 00 :00 Intravenou Medical s, [...] [place] mg 00 on [facility] 10/07/21 at [place] 1999, Until Discontinu ed, Routine gabapentin 0 Yes 300mg 300 mg, Uni vers (NEURONTIN) 6-24 Oral, TID, it y of capsule 300 01:00: First dose [place] mg 00 on [facility] 10/07/21 at [place] 1999, Until Discontinu ed, Routine gabapentin 0 Yes 300mg 300 mg, Uni vers (NEURONTIN) 6-24 Oral, TID, it y of capsule 300 01:00: First dose [place] mg 00 on [facility] 10/07/21 at [place] 1999, Until Discontinu ed, Routine ibuprofen 2021-0 Yes ibuprofen Uni vers 800 mg 24 800 mg ity of tablet 00:39: tablet [place] [address] TAKE 1 Medical TABLET BY Branch MOUTH [...] 100 mg ity of capsule 00:39: capsule [place] 38 TAKE 1 Medical CAPSULE BY Branch [...] 4 doses, Medical First dose Branch on [facility] 10/07/21 at 1800, Last dose on Mon10/08/21 [...] Push, ity of (PF)) 21:11: 09:45 Q4HPRN, [place] injection 4 23 :12 Starting Medi frank mg on [place] Branch 10/07/21 at 1611, Until 10/08/21 at 0445, Routine, Nausea and Vomiting (N/V) HYDROmorphO 2021- No .2mg 0.2 mg, Un brayden ne 10-07 Slow IV ity of (DILAUDID) 21:04: 22:20 Push, [place] injection 22 :58 Q5MIN PRN, Medi frank 0.2 mg 10 doses, Branch Starting on [place] 10/07/21 at 1604, Until [place] 10/07/21 at 1720, Routine, Pain (scale 7-10), PACU
Us e approved by (Faculty): PACU USE -ANESTHESI A SERVICE-HY DROMORPHON E INJECTIONS FENTanyl PF 2021- No 25ug 25 mcg, Un bray[place] (SUBLIMAZE 10-07 Slow IV ity o f (PF)) 21:04: 22:20 Push, [place] injection 21 :58 Q5MIN PRN, Medi frank [...] of 0.9 % 20:50: 22:20 on [place] irrigation 00 :12 10/07/21 at Med ical solution 1550, Branch Until [place] 10/07/21 at 1720, Intra-op lidocaine-e 2021- No PRN, Unive rs pinephrine 10-07 Starting ity of (XYLOCAINE 20:49: 22:20 on [place] WITH 00 :12 10/07/21 at Medical EPINEPHRINE 1549, Branch ) 1 Until [facility] %-1:100,000 10/07/21 at injection 1720, Routine, Intra-op bupivacaine 2021- No PRN, Unive rs (preserv 10-07 Starting ity of free) 20:48: 22:20 on Jeny [place] (SENSORCAIN 00 :12 10/07/21 at Wa dical E MPF) 0.25 1548, Branch % [...] 10-07 ity of (in units)~ 17:14: 21:01 [place] 13 :33 Medical Branch ceFAZolin 2021- No [...] it y of (iso-os) 15:55: 17:10 [facility] [place] (FLAGYL 50 :00 HOLDING Medical I.V.) RTU ONCE, 1 Branch IV infusion dose, 500 mg Starting on [place] 10/07/21 at 1055, Until [place] 10/07/21 at 1210, Administer over 75 Minutes, 100 mL
Reas on for Anti-Infec tive: Surgical Prophylaxi s
[place] rgical Prophylaxi s: GOLF COURSE RANGER
Duration of therapy: within 24 hours of surgery diphenhydrA No 50mg 50 mg, Uni vers MINE 10-07 Oral, ity of (BENADRYL) 05:00: 04:23 ONCE, 1 [place] tablet 50 00 :00 dose, On [...] Ordered Filled Immunization Date Status Comments [facility] e Immunization Name Name TDAP (ADACEL) 2018-10-15 Completed University of VACCINE 00:00:00 [facility] TDAP (ADACEL) 2018-10-15 Completed University of VACCINE 00:00:00 [facility] TDAP (ADACEL) 2018-10-15 Completed University of VACCINE 00:00:00 [facility] TDAP (ADACEL) 2018-10-15 Completed University of VACCINE 00:00:00 [facility] Branch TDAP (ADACEL) 2018-10-15 Completed University of VACCINE 00:00:00 [facility] TDAP (ADACEL) 2018-10-15 Completed University of VACCINE 00:00:00 [facility] TDAP (ADACEL) 2018-10-15 Completed University of VACCINE 00:00:00 [facility] TDAP (ADACEL) 2018-10-15 Completed University of VACCINE 00:00:00 [facility] TDAP (ADACEL) 2018-10-15 Completed University of VACCINE 00:00:00 [facility] TDAP (ADACEL) 2018-10-15 Completed University of VACCINE 00:00:00 [facility] Vital Signs Vital Name Observation Time Observation Value Comments Source Systolic blood 2021-10-12 16:39:00 121 mm[Hg] Univer sity of pressure [facility] Diastolic blood 2021-10-12 16:39:00 67 mm[Hg] Unive rsity of pressure [facility] Heart rate 2021-10-12 16:39:00 59 /min [facility] Body temperature 2021-10-12 16:39:00 37.28 Radha Univ ersity of [place] [facility] Respiratory rate 2021-10-12 16:39:00 18 /min Univ ersity of [place] [facility] Oxygen saturation in 2021-10-12 16:39:00 97 /min University of Arterial blood by [facility] Pulse oximetry Branch Body height 2021-10-10 13:00:00 162.6 cm Universi ty [facility] [place] [facility] Body weight 2021-10-10 13:00:00 83.7 kg Universi ty [facility] [place] [facility] BMI 2021-10-10 13:00:00 31.66 kg/m2 [facility] [place] [facility] Systolic blood 2021-10-12 16:39:00 121 mm[Hg] Univer sity of pressure [place] [facility] Diastolic blood 2021-10-12 16:39:00 67 mm[Hg] Unive rsity of pressure [place] [facility] Heart rate 2021-10-12 16:39:00 59 /min Universi ty [facility] [place] [facility] Body temperature 2021-10-12 16:39:00 37.28 Radha Univ ersity of [place] [facility] Respiratory rate 2021-10-12 16:39:00 18 /min Univ ersity of [place] [facility] Oxygen saturation in 2021-10-12 16:39:00 97 /min University of Arterial blood by [facility] Pulse oximetry Branch Body height 2021-10-10 13:00:00 162.6 cm Universi ty [facility] [place] [facility] Body weight 2021-10-10 13:00:00 83.7 kg Universi ty [facility] [place] [facility] BMI 2021-10-10 13:00:00 31.66 kg/m2 [facility] [place] [facility] Systolic blood 2021-10-08 06:29:00 100 mm[Hg] Univer sity of pressure [place] [facility] Diastolic blood 2021-10-08 06:29:00 60 mm[Hg] Unive rsity of pressure [place] [facility] Heart rate 2021-10-08 06:29:00 73 /min Universi ty [facility] [place] [facility] Body temperature 2021-10-08 06:29:00 37 Radha Univ ersity [facility] [place] [facility] Respiratory rate 2021-10-08 06:29:00 22 /min Univ ersity of [place] [facility] Oxygen saturation in 2021-10-08 06:29:00 100 /min University of Arterial blood by [facility] Pulse oximetry Branch Body weight 2021-10-08 05:40:00 88 kg [facility] [place] [facility] BMI 2021-10-08 05:40:00 31.66 kg/m2 [facility] [place] [facility] Body height 2021-10-07 05:00:00 162.6 cm Universi ty [facility] [place] [facility] Systolic blood 2021-10-07 21:15:00 118 mm[Hg] Univer sity of pressure [place] [facility] Diastolic blood 2021-10-07 21:15:00 64 mm[Hg] Unive rsity of pressure [place] [facility] Heart rate 2021-10-07 21:15:00 76 /min [facility]i ty [facility] [place] [facility] Respiratory rate 2021-10-07 21:15:00 15 /min Univ ersity of [place] [facility] Oxygen saturation in 2021-10-07 21:15:00 100 /min University of Arterial blood by [facility] Pulse oximetry Branch Body temperature 2021-10-07 21:00:00 36.94 Radha Univ ersity [facility] [place] [facility] Body height 2021-10-07 05:00:00 162.6 cm [facility] [place] [facility] Body weight 2021-10-06 20:20:00 75.4 kg [facility] [place] [facility] BMI 2021-10-06 20:20:00 33.30 kg/m2 [facility] [place] [facility] Systolic blood 2021-10-07 21:15:00 118 mm[Hg] Univer sity of pressure [place] [facility] Diastolic blood 2021-10-07 21:15:00 64 mm[Hg] Unive rsity of pressure [place] [facility] Heart rate 2021-10-07 21:15:00 76 /min [facility] [place] [facility] Respiratory rate 2021-10-07 21:15:00 15 /min Univ ersity [facility] [place] [facility] Oxygen saturation in 2021-10-07 21:15:00 100 /min University of Arterial blood by [facility] Pulse oximetry Branch Body temperature 2021-10-07 21:00:00 36.94 Radha Univ ers[facility] [place] [facility] Body height 2021-10-07 05:00:00 162.6 cm [facility] [place] [facility] Body weight 2021-10-06 20:20:00 75.4 kg [facility] BMI 2021-10-06 20:20:00 33.30 kg/m2 [facility] Procedures Procedure Date / Time Performing Clinician Source Performed CBC WITH DIFF 2021-10-12 11:42:00 Alison Zamorano [facility] URINALYSIS 2021-10-11 15:27:00 Alison Zamorano [facility] URINALYSIS 2021-10-11 15:27:00 [facility] URINE CULTURE 2021-10-11 15:27:00 [facility] CBC WITHOUT DIFF 2021-10-10 22:32:00 Yunier [facility] CBC WITHOUT DIFF 2021-10-10 22:32:00 Yunier [facility] PHOSPHORUS 2021-10-10 11:08:00 Yunier [facility] MAGNESIUM 2021-10-10 11:08:00 Yunier [facility] BASIC METABOLIC PANEL (NA, 2021-10-10 11:08:00 Nicholas Faye [facility] K, CL, CO2, GLUCOSE, BUN, Medica l Branch CREATININE, CA) CBC WITHOUT DIFF 2021-10-10 11:08:00 Yunier [facility] PHOSPHORUS 2021-10-10 11:08:00 Yunier [facility] MAGNESIUM 2021-10-10 11:08:00 Yunier [facility] BASIC METABOLIC PANEL (NA, 2021-10-10 11:08:00 Nicholas Faye [facility] K, CL, CO2, GLUCOSE, BUN, Medica l Branch CREATININE, CA) CBC WITHOUT DIFF 2021-10-10 11:08:00 Yunier [facility] CBC WITHOUT DIFF 2021-10-09 23:22:00 Yunier [facility] CBC WITHOUT DIFF 2021-10-09 23:22:00 Yunier [facility] CBC WITHOUT DIFF 2021-10-09 16:22:00 Yunier [facility] CBC WITHOUT DIFF 2021-10-09 16:22:00 Yunier [facility] TRANSFUSE PACKED RBC 2021-10-09 10:31:00 Alexandra Elizabeth [facility] TRANSFUSE PACKED RBC 2021-10-09 10:31:00 Alexandra Elizabeth [facility] PREPARE PACKED RBC 2021-10-09 10:06:26 Clara [facility] PREPARE PACKED RBC 2021-10-09 10:06:26 Monsekellie [facility] PHOSPHORUS 2021-10-09 08:35:00 [facility] MAGNESIUM 2021-10-09 08:35:00 [facility] BASIC METABOLIC PANEL (NA, 2021-10-09 08:35:00 Marcela Khan [facility] K, CL, CO2, GLUCOSE, BUN, Medica l Branch CREATININE, CA) CBC WITHOUT DIFF 2021-10-09 08:35:00 Bill [facility] PHOSPHORUS 2021-10-09 08:35:00 [place], [facility] MAGNESIUM 2021-10-09 08:35:00 [place], [facility] BASIC METABOLIC PANEL (NA, 2021-10-09 08:35:00 [facility]a [facility] [place] K, CL, CO2, GLUCOSE, BUN, Medica l Branch CREATININE, CA) CBC WITHOUT DIFF 2021-10-09 08:35:00 Bill [facility] CBC WITHOUT DIFF 2021-10-09 01:26:00 Bill [facility] CBC WITHOUT DIFF 2021-10-09 01:26:00 Bill [facility] BASIC METABOLIC PANEL (NA, 2021-10-09 00:09:00 Marcela [facility] [place] K, CL, CO2, GLUCOSE, BUN, Medica l Branch CREATININE, CA) BASIC METABOLIC PANEL (NA, 2021-10-09 00:09:00 Marcela [facility] [place] K, CL, CO2, GLUCOSE, BUN, Medica l Branch CREATININE, CA) BASIC METABOLIC PANEL (NA, 2021-10-08 15:10:00 Yunier, Nicholas [facility] K, CL, CO2, GLUCOSE, BUN, Medica l Branch CREATININE, CA) CBC WITHOUT DIFF 2021-10-08 15:10:00 CarolThe [facility] BASIC METABOLIC PANEL (NA, 2021-10-08 15:10:00 Yunier, Nicholas [facility] K, CL, CO2, GLUCOSE, BUN, Medica l Branch CREATININE, CA) CBC WITHOUT DIFF 2021-10-08 15:10:00 CarolThe [facility] BASIC METABOLIC PANEL (NA, 2021-10-08 15:10:00 Yunier, Nicholas [facility] K, CL, CO2, GLUCOSE, BUN, Medica l Branch CREATININE, CA) CBC WITHOUT DIFF 2021-10-08 15:10:00 CarolThe [facility] AC PANEL 20 + LACTIC ACID 2021-10-08 10:24:00 Dalia [facility] AC PANEL 20 + LACTIC ACID 2021-10-08 10:24:00 Dalia Carson [facility] AC PANEL 20 + LACTIC ACID 2021-10-08 10:24:00 Dalia Carson [facility] PHOSPHORUS 2021-10-08 10:20:00 Yamileth [facility] MAGNESIUM 2021-10-08 10:20:00 Yamileth [facility] HEPATIC FUNCTION PANEL 2021-10-08 10:20:[address] [facility] ([id number]) (ALB,T.PRO,BILI Medical Branch T,BU/BC,ALT,AST,ALK PHOS) BASIC METABOLIC PANEL (NA, 2021-10-08 10:20:00 Dalia Carson [facility] K, CL, CO2, GLUCOSE, BUN, Medica l Branch CREATININE, CA) CBC WITH DIFF 2021-10-08 10:20:00 Oxana Gupta [facility] GLYCOSYLATED HEMOGLOBIN 2021-10-08 10:20:00 Yamileth [facility] (A1C) [facility] PROTHROMBIN TIME / INR 2021-10-08 10:20:00 Oxana Gupta [facility] ACTIVATED PARTIAL THRMPLAS 2021-10-08 10:20:00 Oxana Gupta [facility] FIBRINOGEN 2021-10-08 10:20:00 Oxana Gupta [facility] PHOSPHORUS 2021-10-08 10:20:00 Yamileth [facility] MAGNESIUM 2021-10-08 10:20:00 Yamileth [facility] HEPATIC FUNCTION PANEL 2021-10-08 10:20:00 Yamileth [facility] ([id number]) (ALB,T.PRO,BILI Medical Branch T,BU/BC,ALT,AST,ALK PHOS) BASIC METABOLIC PANEL (NA, 2021-10-08 10:20:00 Yamileth [facility] K, CL, CO2, GLUCOSE, BUN, Medica l Branch CREATININE, CA) CBC WITH DIFF 2021-10-08 10:20:00 Oxana Gupta [facility] GLYCOSYLATED HEMOGLOBIN 2021-10-08 10:20:00 [facility] PROTHROMBIN TIME / INR 2021-10-08 10:20:00 Oxana Gupta [facility] ACTIVATED PARTIAL THRMPLAS 2021-10-08 10:20:00 Oxana Gupta [facility] FIBRINOGEN 2021-10-08 10:20:00 Oxana Gupta [facility] PHOSPHORUS 2021-10-08 10:20:00 Yamileth [facility] MAGNESIUM 2021-10-08 10:20:00 Yamileth [facility] HEPATIC FUNCTION PANEL 2021-10-08 10:20:00 aYmileth [facility] ([id number]) (ALB,T.PRO,BILI Medical Branch T,BU/BC,ALT,AST,ALK PHOS) BASIC METABOLIC PANEL (NA, 2021-10-08 10:20:00 Yamileth [facility] K, CL, CO2, GLUCOSE, BUN, Medica l Branch CREATININE, CA) CBC WITH DIFF 2021-10-08 10:20:00 Oxana Gupta [facility] GLYCOSYLATED HEMOGLOBIN 2021-10-08 10:20:00 Yamileth [facility] (A1C) [facility] PROTHROMBIN TIME / INR 2021-10-08 10:20:00 Oxana Gupta [facility] ACTIVATED PARTIAL THRMPLAS 2021-10-08 10:20:00 Oxana Gupta [facility] FIBRINOGEN 2021-10-08 10:20:00 Oxana Gupta [facility] PREPARE PLASMA 2021-10-08 09:48:16 [facility] 2021-10-08 09:48:16 [facility] PREPARE PLASMA 2021-10-08 09:48:16 Florencio Lr [facility] PREPARE PACKED RBC 2021-10-08 09:47:11 Jailene [facility] PREPARE PACKED RBC 2021-10-08 09:47:11 Jailene [facility] PREPARE PACKED RBC 2021-10-08 09:47:11 Jailene [facility] HB ECG ROUTINE & RHYTHM 2021-10-08 09:44:02 Yamileth [facility] HB ECG ROUTINE & RHYTHM 2021-10-08 09:44:02 Yamileth [facility] TRANSFUSE CRYOPRECIPITATE 2021-10-08 08:58:00 [facility] [place] [facility] TRANSFUSE CRYOPRECIPITATE 2021-10-08 08:58:00 [facility] [facility] TRANSFUSE CRYOPRECIPITATE 2021-10-08 08:58:00 [facility] [facility] ABG+COOX+NA+K+GLU+CA2+ 2021-10-08 08:55:00 [facility] ABG+COOX+NA+K+GLU+CA2+ 2021-10-08 08:55:00 Florencio Lr [facility] PROTHROMBIN TIME / INR 2021-10-08 08:50:00 Judi Merino [facility] PROTHROMBIN TIME / INR 2021-10-08 08:50:00 Judi Merino [facility] PROTHROMBIN TIME / INR 2021-10-08 08:50:00 Judi Merino [facility] TRANSFUSE PLASMA 2021-10-08 08:31:00 Michael Andrews [facility] TRANSFUSE PLASMA 2021-10-08 08:31:00 Michael Andrews [facility] TRANSFUSE PLASMA 2021-10-08 08:31:00 Michael Andrews [facility] TRANSFUSE PACKED RBC 2021-10-08 08:28:00 Michael Andrews [facility] TRANSFUSE PACKED RBC 2021-10-08 08:28:00 Michael Adnrews [facility] TRANSFUSE PACKED RBC 2021-10-08 08:28:00 Michael Andrews [facility] ABG+COOX+NA+K+GLU+CA2+ 2021-10-08 08:01:00 Florencio Lr [facility] ABG+COOX+NA+K+GLU+CA2+ 2021-10-08 08:01:00 Florencio Lr [facility] TRANSFUSE PLASMA (IN ML) 2021-10-08 07:55:00 Michael Andrews [facility] TRANSFUSE PLASMA (IN ML) 2021-10-08 07:55:00 Michael Andrews [facility] TRANSFUSE PACKED RBC 2021-10-08 07:50:00 Michael Andrews [facility] TRANSFUSE PACKED RBC 2021-10-08 07:50:00 Michael Andrews [facility] CBC WITHOUT DIFF 2021-10-08 07:46:00 Judi Merino [facility] EXTRA TUBE SST 2021-10-08 07:46:00 Florencio Lrh [facility] CBC WITHOUT DIFF 2021-10-08 07:46:00 Judi Merino [facility] EXTRA TUBE SST 2021-10-08 07:46:00 [facility] CBC WITHOUT DIFF 2021-10-08 07:46:00 Judi Merino [facility] EXTRA TUBE SST 2021-10-08 07:46:00 [facility] ABG+COOX+NA+K+GLU+CA2+ 2021-10-08 07:43:00 Jailene Matias [facility] ABG+COOX+NA+K+GLU+CA2+ 2021-10-08 07:43:00 Jailene Matias [facility] TRANSFUSE PLASMA (IN ML) 2021-10-08 07:36:00 Michael Andrews [facility] TRANSFUSE PLASMA (IN ML) 2021-10-08 07:36:00 [facility] 2021-10-08 07:32:00 Judi Merino [facility] FIBRINOGEN 2021-10-08 07:32:00 Judi Merino [facility] FIBRINOGEN 2021-10-08 07:32:00 Judi Merino [facility] TRANSFUSE PACKED RBC 2021-10-08 07:30:00 Viviana Healy [facility] TRANSFUSE PLASMA (IN ML) 2021-10-08 07:30:00 Michael Andrews [facility] TRANSFUSE PACKED RBC 2021-10-08 07:30:00 Viviana Healy [facility] TRANSFUSE PLASMA (IN ML) 2021-10-08 07:30:00 Michael Andrews [facility] PREPARE CRYOPRECIPITATE 2021-10-08 07:24:24 Florencio Lr [facility] PREPARE CRYOPRECIPITATE 2021-10-08 07:24:24 Florencio Lr [facility] PREPARE CRYOPRECIPITATE 2021-10-08 07:24:24 Florencio Lr [facility] TRANSFUSE PACKED RBC 2021-10-08 07:22:00 Michael Andrews [facility] TRANSFUSE PACKED RBC 2021-10-08 07:22:00 [facility] TRANSFUSE PACKED RBC 2021-10-08 07:19:00 [facility] TRANSFUSE PACKED RBC 2021-10-08 07:19:00 Michael Andrews [facility] ABG+COOX+NA+K+GLU+CA2+ 2021-10-08 07:13:00 Addison Lruong [facility] ABG+COOX+NA+K+GLU+CA2+ 2021-10-08 07:13:00 Jailene Matias [facility] TRANSFUSE PLASMA (IN ML) 2021-10-08 07:08:00 Michael Andrews [facility] TRANSFUSE PLASMA (IN ML) 2021-10-08 07:08:00 Michael Andrews [facility] TRANSFUSE PLATELETS 2021-10-08 06:55:00 Pranav [facility] TRANSFUSE PLATELETS 2021-10-08 06:55:00 Pranav [facility] PREPARE PLATELETS 2021-10-08 06:44:36 Florencio Lr [facility] PREPARE PLATELETS 2021-10-08 06:44:36 [facility] PREPARE PLATELETS 2021-10-08 06:44:36 Lr, Florencio [facility] EXPLORATORY LAPAROTOMY 2021-10-08 06:24:00 Wilber Judi G U [facility] EVACUATION HEMATOMA PELVIC 2021-10-08 06:24:00 Wilber Judi Milvia [facility] EXPLORATORY LAPAROTOMY 2021-10-08 06:24:00 Connie Merinoah Milvia U [facility] EVACUATION HEMATOMA PELVIC 2021-10-08 06:24:00 Judi Merino [facility] FIBRINOGEN 2021-10-08 06:17:00 Darryl [facility] FIBRINOGEN 2021-10-08 06:17:00 Darryl [facility] FIBRINOGEN 2021-10-08 06:17:00 Darryl [facility] AC PANEL 21 + LACTIC ACID 2021-10-08 06:14:00 Elizabeth Mccray [facility] AC PANEL 21 + LACTIC ACID 2021-10-08 06:14:00 Shazia [facility] AC PANEL 21 + LACTIC ACID 2021-10-08 06:14:00 Elizabeth Mccray [facility] BASIC METABOLIC PANEL (NA, 2021-10-08 06:12:00 Yadira Mccray [facility] K, CL, CO2, GLUCOSE, BUN, Medica l Branch CREATININE, CA) CBC WITH DIFF 2021-10-08 06:12:00 Elizabeth Mccray [facility] PROTHROMBIN TIME / INR 2021-10-08 06:12:00 [facility] PARTIAL THRMPLAS 2021-10-08 06:12:00 Yadira Mccray [facility] FIBRINOGEN 2021-10-08 06:12:00 Elizabeth Mccray [facility] BASIC METABOLIC PANEL (NA, 2021-10-08 06:12:00 Yadira Mccray [facility] K, CL, CO2, GLUCOSE, BUN, Medica l Branch CREATININE, CA) CBC WITH DIFF 2021-10-08 06:12:00 Elizabeth Mccray [facility] PROTHROMBIN TIME / INR 2021-10-08 06:12:00 [facility] PART[facility] THRMPLAS 2021-10-08 06:12:00 Yadira Mccray [facility] FIBRINOGEN 2021-10-08 06:12:00 Elizabeth Mccray [facility] BASIC METABOLIC PANEL (NA, 2021-10-08 06:12:00 Yadira Mccray [facility] K, CL, CO2, GLUCOSE, BUN, Medica l Branch CREATININE, CA) CBC WITH DIFF 2021-10-08 06:12:00 Elizabeth Mccray [facility] PROTHROMBIN TIME / INR 2021-10-08 06:12:00 [facility] PARTIAL THRMPLAS 2021-10-08 06:12:00 Yadira Mccray [facility] FIBRINOGEN 2021-10-08 06:12:00 Elizabeth Mccray [facility] EXTERNAL PROVIDER RECORDS 2021-10-08 05:01:00 Doctor Unassigned, [facility] Name [facility] EXTERNAL PROVIDER RECORDS 2021-10-08 05:01:00 Doctor Unassigned, [facility] Name [facility] EXTERNAL PROVIDER RECORDS 2021-10-08 05:01:00 Doctor Unassigned, [facility] Name [facility] TRANSFUSE PACKED RBC 2021-10-08 04:45:00 LyViviana [facility] TRANSFUSE PACKED RBC 2021-10-08 04:45:00 LyViviana [facility] MAGNESIUM 2021-10-08 04:36:[address] [facility] BASIC METABOLIC PANEL (NA, 2021-10-08 04:36:00 Ly, Viviana [facility] K, CL, CO2, GLUCOSE, BUN, Medica l Branch CREATININE, CA) CBC WITH DIFF 2021-10-08 04:36:00 Ly, [facility] MAGNESIUM 2021-10-08 04:36:00 Ly, [facility] BASIC METABOLIC PANEL (NA, 2021-10-08 04:36:00 Ly, [facility] K, CL, CO2, GLUCOSE, BUN, Medica l Branch CREATININE, CA) CBC WITH DIFF 2021-10-08 04:36:00 Ly, [facility] MAGNESIUM 2021-10-08 04:36:00 Ly, [facility] BASIC METABOLIC PANEL (NA, 2021-10-08 04:36:00 Ly, [facility] K, CL, CO2, GLUCOSE, BUN, Medica l Branch CREATININE, CA) CBC WITH DIFF 2021-10-08 04:36:00 Ly, [facility] PREPARE PACKED RBC 2021-10-08 04:27:22 Ly, [facility] PREPARE PACKED RBC 2021-10-08 04:27:22 Ly, [facility] PREPARE PACKED RBC 2021-10-08 04:27:22 Ly, [facility] POCT GLUCOSE (AUTOMATED) 2021-10-08 03:51:00 Florencio Lr [facility] POCT GLUCOSE (AUTOMATED) 2021-10-08 03:51:00 Florencio Lr [facility] POCT GLUCOSE (AUTOMATED) 2021-10-08 03:51:00 Florencio Lr [facility] CBC WITH DIFF 2021-10-07 23:55:00 Hilario [facility] CBC WITH DIFF 2021-10-07 23:55:[facility] WITH DIFF 2021-10-07 23:55:00 [facility] PREPARE PACKED RBC 2021-10-07 21:08:55 Naga Toshia [facility] PREPARE PACKED RBC 2021-10-07 21:08:55 Nielson, Toshia [facility] PREPARE PACKED RBC 2021-10-07 21:08:55 Naga Toshia [facility] SURGICAL PATHOLOGY EXAM 2021-10-07 20:37:00 Florencio Lr [facility] TRANSFUSE PACKED RBC 2021-10-07 17:19:00 [facility] TRANSFUSE PACKED RBC 2021-10-07 17:19:00 [facility] TRANSFUSE PACKED RBC 2021-10-07 17:19:00 [facility] INTUBATION 2021-10-07 16:49:00 Ronald [facility] LAPAROSCOPIC TOTAL 2021-10-07 16:12:00 [facility] HYSTERECTOMY Medical [facility] ranch LAPAROSCOPIC 2021-10-07 16:12:00 [facility] SALPINGO-OOPHORECTOMY Medical Br anch CYSTOSCOPY 2021-10-07 16:12:00 [facility] LAPAROSCOPIC TOTAL 2021-10-07 16:12:00 Florencio Lr [facility] ABDOMINAL HYSTERECTOMY [facility] [place] LAPAROSCOPIC 2021-10-07 16:12:00 [facility] SALPINGO-OOPHORECTOMY Medical Br anch CYSTOSCOPY 2021-10-07 16:12:00 [facility] COMP. METABOLIC PANEL 2021-10-07 11:41:00 Alison Zamorano [facility] ([id number]) [facility] COMP. METABOLIC PANEL 2021-10-07 11:41:00 Alison Zamorano [facility] ([id number]) [facility] COMP. METABOLIC PANEL 2021-10-07 11:41:00 Alison Zamorano [facility] ([id number]) [facility] CBC WITH DIFF 2021-10-07 00:30:00 Alison Zamorano [place] [facility] PROTHROMBIN TIME / INR 2021-10-07 00:30:00 Alison Zamorano [facility] ACTIVATED PARTIAL THRMPLAS 2021-10-07 00:30:00 [facility] FIB[facility] 2021-10-07 00:30:00 Alison Zamorano [facility] CBC WITH DIFF 2021-10-07 00:30:00 Alison Zamorano [facility] PROTHROMBIN TIME / INR 2021-10-07 00:30:00 Alison Zamorano [facility] ACTIVATED PARTIAL THRMPLAS 2021-10-07 00:30:00 [facility] FIB[facility] 2021-10-07 00:30:00 Alison Zamorano [facility] CBC WITH DIFF 2021-10-07 00:30:00 Alison Zamorano [facility] PROTHROMBIN TIME / INR 2021-10-07 00:30:00 Alison Zamorano [facility] ACTIVATED PARTIAL THRMPLAS 2021-10-07 00:30:00 [facility] FIB[facility] 2021-10-07 00:30:00 Alison Zamorano [facility] HB ABO GROUPING 2021-10-06 21:00:00 [facility] HB ABO GROUPING 2021-10-06 21:00:00 [facility] HB ABO GROUPING 2021-10-06 21:00:00 Naga [facility] POCT TEST 2021-10-06 20:12:00 Eli Jack [facility] POCT TEST 2021-10-06 20:12:00 Eli Jack [facility] POCT TEST 2021-10-06 20:12:00 Patricia Jackhykellie Silva [facility] COVID-19 (ID NOW RAPID 2021-10-06 20:09:00 Florencio Lr [facility] TESTING Medical Branch LAB ONLY COVID 2021-10-06 20:09:00 Florencio Lrh [facility] COVID-19 (ID NOW RAPID 2021-10-06 20:09:00 [facility] Medical [facility] LAB ONLY COVID 2021-10-06 20:09:00 Florencio Lr [facility] COVID-19 (ID NOW RAPID 2021-10-06 20:09:00 [facility] Medical Branch LAB ONLY COVID 2021-10-06 20:09:00 Florencio Lr [facility] HOSPITAL ADMISSION 2021-10-06 05:01:00 Doctor Unassigned, [facility] [place] Medical Branch Encounters Start End Encounter Admission Attending Care Care Encounter Source Date/Time Date/Time Type Type Clinicians Facility Department ID 2021-10-06 Inpatient R [facility] DEICER INSPECTOR ELECTRIC [id number] Univers 14:42:00 [facility] 2021-10-06 Hospital Lr, 1.2.840.9 [id number] Univers 14:42:00 Encounter [facility] [id number] [facility] 3.104.2.7 [facility]3.956622 [facility] [place] 2021-10-06 Inpatient R [facility] DEICER INSPECTOR ELECTRIC [id number] Univers 14:42:00 [facility] 2020-05-03 Inpatient UR Maria G, [facility] [id number] [facility] 03:53:00 [place] [address] [facility] 2022-02-17 2022-02-17 Patient Inga Fontenot [id number] Univers 00:00:00 00:00:00 Outreach E ARCE [id number] [id number] [address] 2021-11-03 2021-11-03 Telephone LITTLE Loco [id number] Univers 00:00:00 [facility]:00[facility] [id number] [place] [id number] [facility] 113 Branch 2021-10-29 2021-10-29 Outpatient R [facility] [id number] Univers 14:15:00 14:15:00 ity of [facility] 2021-10-21 2021-10-21 [facility] [id number] Univers 14:45:00 14:45:00 NICOLE ity of [facility] 2021-10-21 2021-10-21 Telephone Pgy3 UNIVERSIT 1.2.840.114 [id number] Univers 00:00:00 00:00:00 Y [facility] [id number] i [id number] [id number] [facility] 113 Branch 2021-10-13 2021-10-13 Transition MARY Richard 1.2.840.114 [id number] Univers 00:00:00 00:00:00 of Care Sandi ARCE [id number] [place] [id number] [facility] 403 Branch 2021-10-13 2021-10-13 Transition MARY Richard 1.2.840.114 [id number] Univers 00:00:00 00:00:00 of Care Sandi ARCE [id number] [id number] [id number] [facility] 403 Branch 2021-10-06 2021-10-12 Inpatient R ALDAIR, [facility] DEICER INSPECTOR ELECTRIC [id number] Univers 14:42:00 14:14:00 NGOC ity of [facility] 2021-10-06 2021-10-12 Hospital Florencio Lr 1.2. [id number] Univers 14:42:00 14:14:00 Encounter Ngoc Quinteros [id number] ity of HOSPITAL 4.2.7.2.686 Eladio as [id number] [facility] 091 Branch 2021-10-08 2021-10-08 Surgery OC Merino 1.2.840.114 [id number] Univers 01:30:00 03:41:00 Judi Steel [place] [id number] it y of [facility] 4.2.7.2.686 [place]io as [id number] [facility] 103 Branch 2021-10-07 2021-10-07 Surgery Lr, 1.2.840.9 [id number] Univers 11:40:00 16:17:00 Matias 43325.1.1 ity of [facility] 3.104.2.7 [place] .3.830930 Medica l .8 Branch 2021-10-07 2021-10-07 Surgery LrDYLAN parishNIE 1.2.840.114 [id number] Univers 11:40:00 16:17:00 Matias ISRAEL [id number] it y of [facility] 4.2.7.2.686 Eladio as [id number] [facility] 103 Branch 2021-10-07 2021-10-07 Anesthesia Johanny Martel 1.2.840.114 [id number] Univers 11:39:00 15:55:00 Event Chanel Fabian [id number] ity of [facility] [id number] [place] [id number] [facility] 103 [place] 2021-10-06 2021-10-06 Orders Doctor JARAD 1.2.840.114 [id number] Univers 00:00:00 00:00:00 Only Unassigned, [place] [id number] ity of [place] [facility] 4.2.7.2.686 Eladio as [id number] [facility] 009 Branch 2021-10-05 2021-10-05 Travel 1.2.840.1 [id number] Univers 00:00:00 00:00:00 [id number] ity of 3.104.2.7 [place].698 [place] .[id number] 084.8 Medica l .8 Branch 2021-10-04 2021-10-04 Transition [place], 1.2.840.8 [id number] Univers 00:00:00 00:00:00 of Care Erma Monroe 05298.1.1 ity of 3.104.2.7 [place] .3.932036 Medica l .8 [place] 2021-10-04 2021-10-04 Patient Cruz, 1.2.840.3 [id number] Univers 00:00:00 00:00:00 Secure Msg Matias 22028.1.1 i ty of 3.104.2.7 [place] .3.489131 Medica l .8 [place] 2021-09-27 2021-10-02 Inpatient X CRUZ, [facility] DEICER INSPECTOR ELECTRIC [id number] Univers 20:32:00 05:30:00 MATIAS ity [facility] [place] 2021-09-27 2021-10-02 Inpatient X CRUZ, [facility] DEICER INSPECTOR ELECTRIC [id number] Univers 20:32:00 05:30:00 MATIAS ity [facility] [place] 2021-09-27 2021-10-02 Hospital Cruz, 1.2.840.0 [id number] Univers 20:32:00 05:30:00 Encounter Matias 32675.1.1 it y of 3.104.2.7 [place] .3.509945 Medica l .8 [place] 2021-09-27 2021-09-27 Travel 1.2.840.1 1.2.565.699 [id number] 6137 Univers 00:00:00 00:00:00 68911.1.1 350.1.13.10 ity of 3.104.2.7 4[place].3.698 [place] .3.403716 084.8 Medica l .8 [place] 2021-09-14 2021-09-14 Outpatient Chaparro [facility] [id number] Univers 14:00:00 14:00:00 [facility] ity [facility] [place] 2021-09-14 2021-09-14 Outpatient Chaparro [facility] [id number] Univers 14:00:00 14:00:00 [facility] ity [facility] [place] 2021-09-14 2021-09-14 Patient Doctor 1.2.840.2 [id number] Univers 00:00:00 00:00:00 Secure Msg Unassigned, 56404.1.1 ity of [place] 3.104.2.7 [place] .3.006422 Medica l .8 [place] 2021-09-04 2021-09-04 Orders Doctor 1.2.840.4 [id number] Univers 00:00:00 00:00:00 Only Unassigned, 19284.1.1 ity of [place] 3.104.2.7 [place] .3.823469 Medica l .8 [place] 2021-08-27 2021-08-27 Transition Richard, 1.2.840.6 [id number] Univers 00:00:00 00:00:00 of Care Sandi 58402.1.1 i ty of 3.104.2.7 [place] .3.067789 Medica l .8 [place] 2021-08-24 2021-08-26 Inpatient X [facility] DEICER INSPECTOR ELECTRIC [id number] Univers 03:17:00 15:30:00 MATIAS ity of [facility] 2021-08-24 2021-08-26 Inpatient X [facility] DEICER INSPECTOR ELECTRIC [id number] Univers 03:17:00 15:30:00 MATIAS ity of [facility] 2021-08-24 2021-08-26 [facility], 1.2.840.2 [id number] [id number] Univers 03:17:00 15:30:00 Encounter Matias 30079.1.1 it y of [place] 3.104.2.7 [place] .3.399011 Medica l .8 [place] 2021-08-24 2021-08-24 Travel 1.2.840.1 1.2.256.326 [id number] [id number] Univers 00:00:00 00:00:00 35520.1.1 350.1.13.10 ity of 3.104.2.7 4[place].3.698 [place] .3.915875 084.8 Medica l .8 [place] 2021-05-04 2021-05-05 Emergency EM Dorena, [place] [address] [id number] [facility] 01:14:00 14:01:00 Nicole [facility] 2021-03-02 2021-03-02 Emergency X [facility] ERT [id number] Univers 22:11:00 22:41:00 [facility] 2020-08-25 2020-08-26 [facility] 7503 Mem[place] 02:37:00 18:00:00 DEBRA Riossara Oleary [facility] l 2020-07-06 2020-07-06 [facility] 1.2.840.114 [id number] Univers 00:00:00 00:00:00 Outreach Bird PRIMARY 350.1.13.10 i ty [facility] 4.2.[place].2.[place] [id number] [address] 2019-07-13 2019-07-13 Nurse JARAD Douglas 1.2.840.114 [id number] Univers 00:00:00 00:00:00 Triage Aracelis ISRAEL 350.1.13.10 it y of [facility] 4.2.7.2.686 Eladio as [phone] [address] 2019-07-13 2019-07-13 JARAD Santamaria 1.2.840.114 [id number] Univers 00:00:00 00:00:00 Triage Melinda D ISRAEL 350.1.13.10 i ty [facility] 4.2.7.2.686 Eladio as [id number] [address] 2019-07-13 2019-07-13 JARAD Ballesteros 1.2.840.114 [id number] 406 00:00:00 00:00:00 Triage Aracelis ISRAEL 350.1.13.10 [facility] 4.2.7.2.686 [id number] 019 2019-07-13 2019-07-13 JARAD Santamaria 1.2.840.114 [id number] 46 00:00:00 00:00:00 Triage Melinda D ISRAEL 350.1.13.10 [facility] 4.2.7.2.686 [id number] 019 2018-12-31 2019-01-01 [facility] 1.2.363.032 [id number] [id number] [facility] 21:55:55 14:19:00 Encounter Jesse WOOD 350.1.13.10 ity of [place] [id number] [address] 2018-12-31 2019-01-01 [facility] 1.2.832.246 1319 [id number] 21:55:55 14:19:00 Encounter Jesse WOOD 350.1.13.10 [place] 4.2.7.2.686 [id number] [facility] 2018-12-31 2018-12-31 Nurse Visit, Jerel Nurse [facility] 1.2 .840.114 [id number] [facility] 15:10:27 15:53:28 Visit Allie Miller GOLF COURSE RANGER 350.1.13. 10 ity of [facility] 4.2.7.2.686 Eladio as MATERNAL [phone] Med ical & CHILD [address] [place] [address] 2018-12-31 2018-12-31 Nurse Visit, [facility] 1.2.840.114 [id number] 15:10:27 15:53:28 Visit Jerel GOLF COURSE RANGER 350.1.13.10 Nurse [facility] 4.2.7.2.686 MATERNAL [id number] & CHILD [address] [place] [address] 2018-12-31 2018-12-31 Telephone AMANDA Duran 1.2.840.114 [id number] [facility] 00:00:00 00:00:00 Rimma Guadalupe GOLF COURSE RANGER 350.1.13.10 it y of [facility] 4.2.7.2.686 Eladio as MATERNAL [phone] Med ical & CHILD [address] [place] [address] 2018-12-31 2018-12-31 Telephone JARAD Upton 1.2.840.114 [id number] Univers 00:00:00 00:00:00 Gilson WOOD 350.1.13.10 i ty of [facility] 4.2.7.2.686 Eladio as [id number] [facility] 013 [place] 2018-12-31 2018-12-31 Telephone AMANDA Duran 1.2.840.114 [id number] 00:00:00 00:00:00 Rimma Lizbet GOLF COURSE RANGER 350.1.13.10 [facility] 4.2.7.2.686 MATERNAL [phone] & CHILD 107 [facility] 2018-12-31 2018-12-31 Telephone JARAD Upton 1.2.840.114 [id number] 00:00:00 00:00:00 Gilson WOOD 350.1.13.10 [facility] 4.2.7.2.686 [id number] [facility] 2018-12-28 2018-12-29 Emergency [facility], [facility] 1.2.593.711 [id number] 0880 [facility] 19:29:15 00:59:00 Jenniferjenniferaustin Amisha Jessica 350.1.13.10 ity of [place] 4.2.7.2.686 [facility] [phone] [address] 2018-12-28 2018-12-29 Emergency [facility], [facility] 1.2.929.135 [id number] 0880 19:29:15 00:59:00 Alla [place] 350.1.13.10 [place] 4.2.7.2.686 [place] [id number] [facility] 2018-12-28 2018-12-28 Nurse Visit, Shanmonie Nurse [facility] 1.2 .840.114 [id number] [facility] 12:55:55 13:47:08 Visit Max Velarde GOLF COURSE RANGER 350.1.13.10 ity of [facility] 4.2.7.2.686 Eladio MATERNAL [phone] Med ical & CHILD [address] [place] [address] 2018-12-28 2018-12-28 Nurse Visit, [facility] 1.2.840.114 [id number] 12:55:55 13:47:08 Visit Jerel GOLF COURSE RANGER 350.1.13.10 Nurse [facility] 4.2.7.2.686 MATERNAL [id number] & CHILD 107 [facility] 2018-12-20 2018-12-24 Hospital JARAD Lizama 1.2.840.114 [id number] Univers 18:42:00 13:40:00 Encounter Ree WOOD 350.1.13.10 ity of [place] [id number] [facility] 070 [place] 2018-12-20 2018-12-24 [facility] JARAD Lizama 1.2.840.114 [id number] 18:42:00 13:40:00 Encounter Ree WOOD 350.1.13.10 [place] 4.2.7.2.686 [id number] 07 2018-12-20 2018-12-20 Emt Dispatcher Ultrasound, Ang-Mfm [facility] 1.2 .840.114 [id number] [facility] 11:12:37 11:42:37 Visit Mila Ferguson GOLF COURSE RANGER 350.1.13.10 ity of [place] REGIONAL 4.2.7.2.686 [place] MATERNAL [phone] [facility] ical & CHILD 369 [facility] 2018-12-20 2018-12-20 Emt Dispatcher Ultrasound, [facility] 1.2.840.114 [id number] 11:12:37 11:42:37 Visit Ang-Mfm GOLF COURSE RANGER 350.1.13.10 REGIONAL 4.2.7.2.686 MATERNAL [id number] & CHILD 369 [facility] 2018-12-20 2018-12-20 Routine Risk, Nrp-Msdhj-Po/High [facility] 1. 2.840.114 [id number] Univers 10:20:16 11:05:03 Mila Ferguson GOLF COURSE RANGER 350.1.13.10 ity of Visit REGIONAL 4.2.7.2.686 Eladio as MATERNAL [phone] [facility] ical & CHILD 107 [facility] 2018-12-20 2018-12-20 Routine Risk, [facility] 1.2.840.114 [id number] 10:20:16 11:05:03 Ang-Rmchp-N GOLF COURSE RANGER 350.1.13.10 Visit p/High REGIONAL 4.2.7.2.686 MATERNAL [id number] & CHILD 107 [facility] 2018-12-18 2018-12-18 Routine Velarde, [facility] 1.2.840.114 [id number] Univers 12:50:29 14:00:55 Roshunda R GOLF COURSE RANGER 350.1.13.10 ity of Visit REGIONAL 4.2.7.2.686 Eladio as MATERNAL [phone] Med ical & CHILD 107 [facility] 2018-12-18 2018-12-18 Routine Syd [facility] 1.2.840.114 [id number] 15 12:50:29 14:00:55 Marynda R GOLF COURSE RANGER 350.1.13.10 Visit REGIONAL 4.2.7.2.686 MATERNAL [id number] & CHILD 107 [facility] 2018-12-13 2018-12-13 Routine [facility] Resident UNIVERSIT 1.2.8 40.114 [id number] Univers 13:28:19 14:24:11 TeresaIngaadette Y HEALTH 350.1. 13.10 ity of Visit Jesse Woods [facility] 4.2.7.2.686 [place] Chacorta Abrams [phone] [address] 2018-12-13 2018-12-13 Routine [facility] UNIVERSIT 1.2.840.114 [id number] 13:28:19 14:24:11 Resident Y HEALTH 350.1.13.10 Visit [facility] 4.2.7.2.686 [id number] 113 2018-12-13 2018-12-13 Emt Dispatcher 2, [facility] UNIVERSIT 1.2.840.11 [id number] 12:48:28 13:23:20 Visit Usg Room Y HEALTH 350.1.13.10 CLINICS 4.2.7.2.686 [id number] [facility] 2018-12-13 2018-12-13 Emt Dispatcher 2, [facility] Room UNIVERSIT 1 .2.840.114 [id number] [facility] 12:48:28 13:23:20 Visit Inga Moore HEALTH 350.1.1 3.10 ity of [place] CLINICS 4.2.7.2.686 [place] [id number] [facility] [address] 2018-12-13 2018-12-13 Orders Doctor JARAD 1.2.840.114 [id number] 00:00:00 00:00:00 Only Unassigned, ISRAEL 350.1.13.10 [place] [facility] 4.2.7.2.686 [id number] 009 2018-12-13 2018-12-13 Orders Doctor JARAD 1.2.840.114 [id number] Univers 00:00:00 00:00:00 Only Unassigned, ISRAEL 350.1.13.10 ity of [place] [facility] 4.2.7.2.686 Eladio as [id number] [address] 2018-12-11 2018-12-11 Case JARAD Chris 1.2.840.114 [id number] 00:00:00 00:00:00 Management Ruba ISRAEL 350.1.13.10 HOSPITAL 4.2.7.2.686 [id number] 013 2018-12-11 2018-12-11 Case JARAD Chris 1.2.840.114 [id number] Univers 00:00:00 00:00:00 Management Ruba ISRAEL 350.1.13.10 ity of HOSPITAL 4.2.7.2.686 Eladio as [phone] [address] 2018-12-10 2018-12-10 Routine Faculty, [facility] 1.2.840.114 [id number] 10:35:35 11:46:44 [facility] GOLF COURSE RANGER 350.1.13.10 Visit [facility] 4.2.7.2.686 MATERNAL [id number] & CHILD 107 [facility] 2018-12-10 2018-12-10 Routine Faculty, Ad Samson [facility] 1.2 .840.114 [id number] [facility] 10:35:35 11:46:44 Jesse Woods GOLF COURSE RANGER 350.1.13.10 ity of Visit [facility] 4.2.7.2.686 Eladio as MATERNAL [phone] Med ical & CHILD 107 [facility] 2018-12-06 2018-12-06 Emt Dispatcher Ultrasound, [facility] 1.2.840.114 [id number] 11:40:06 12:10:06 Visit [facility] GOLF COURSE RANGER 350.1.13.10 [facility] 4.2.7.2.686 MATERNAL [id number] & CHILD 369 [facility] 2018-12-06 2018-12-06 Emt Dispatcher Ultrasound, Ad-Mfm [place] 1.2 .840.114 [id number] Univers 11:40:06 12:10:06 Visit EmyMarycruz Bubba GOLF COURSE RANGER 350.1.13.10 ity of REGIONAL 4.2.7.2.686 Eladio as MATERNAL [id number] Med ical & CHILD 369 [facility] 2018-12-06 2018-12-06 Routine Risk, [facility] 1.2.840.114 [id number] 10:02:15 11:39:46 Ang-Rmchp-N GOLF COURSE RANGER 350.1.13.10 Visit p/High REGIONAL 4.2.7.2.686 MATERNAL [id number] & CHILD 107 [facility] 2018-12-06 2018-12-06 Routine Risk, Ivl-Nnwll-My/High [facility] 1. 2.840.114 [id number] Univers 10:02:15 11:39:46 QuevedoMarycruz kinsey GOLF COURSE RANGER 350.1.13.10 ity of Visit [facility] 4.2.7.2.686 Eladio as MATERNAL [id number] [facility] ical & CHILD 107 [facility] 2018-12-03 2018-12-03 [facility] Lorrie Olmos [facility] 1.2.840.114 [id number] 13:57:00 16:45:00 Encounter Cam Elverta 350.1.13.10 [place] 4.2.7.2.686 [place] [id number] [facility] 2018-12-03 2018-12-03 [facility] Lorrie Olmos [facility] 1.2.840.114 [id number] [facility] 13:57:00 16:45:00 Encounter Cam Elverta 350.1.13.10 ity of [place] 4.2.7.2.686 [facility] [place] [phone] [address] 2018-12-03 2018-12-03 Routine Faculty, [place] 1.2.840.114 [id number] 09:27:42 10:36:46 Ang Rmchp GOLF COURSE RANGER 350.1.13.10 Visit [facility] 4.2.7.2.686 MATERNAL [id number] & CHILD 107 [facility] 2018-12-03 2018-12-03 Routine Faculty, Ad Samson [facility] 1.2 .840.114 [id number] Univers 09:27:42 10:36:46 Kyle Cordero GOLF COURSE RANGER 350.1.13. 10 ity of Visit REGIONAL 4.2.7.2.686 Eladio as MATERNAL [phone] Med ical & CHILD 107 [facility] 2018-11-29 2018-11-29 Routine Risk, [facility] 1.2.840.114 [id number] 12:45:37 13:38:16 [facility] GOLF COURSE RANGER 350.1.13.10 Visit p/High REGIONAL 4.2.7.2.686 MATERNAL [id number] & CHILD [address] [place] [address] 2018-11-29 2018-11-29 Routine Risk, Hpz-Ejkku-Ba/High [facility] 1. 2.840.114 [id number] [facility] 12:45:37 13:38:16 Ferguson Mila Soraida GOLF COURSE RANGER 350.1.13.10 ity of Visit REGIONAL 4.2.7.2.686 Eladio as MATERNAL [id number] Med ical & CHILD 107 [facility] 2018-11-29 2018-11-29 Emt Dispatcher Ultrasound, [facility] 1.2 .840.114 [id number] Univers 11:09:01 11:48:17 Visit Amanda, Calvin Chaparro GOLF COURSE RANGER 350.1.13.10 ity of REGIONAL 4.2.7.2.686 Eladio as MATERNAL [id number] Med ical & CHILD 369 [facility] 2018-11-26 2018-11-26 Routine Faculty, Ad Beachjayesh [facility] 1.2 .840.114 [id number] Univers 10:07:03 11:06:11 TeresaIngae GOLF COURSE RANGER 350.1.1 3.10 ity of Visit REGIONAL 4.2.7.2.686 Eladio as MATERNAL [id number] [facility] ical & CHILD 107 [facility] 2018-11-22 2018-11-22 Emt Dispatcher 5, [facility] Usg Room UNIVERSIT 1 .2.840.114 [id number] [facility] 10:44:00 11:48:35 Visit Inga Moore [facility] 350.1.1 3.10 ity of Alison Reis [facility] 4.2.7.2.686 [place] [id number] [facility] 104 [place] 2018-11-22 2018-11-22 Routine Roger [facility] 1.2.402.352 [id number] Univers 08:04:45 09:05:49 Rimma Guadalupe GOLF COURSE RANGER 350.1.13.10 i ty of Visit [facility] 4.2.7.2.686 Eladio as MATERNAL [id number] [facility] ical & CHILD [address] [place] [address] 2018-11-19 2018-11-19 [facility] Lorrie Olmos [facility] 1.2.840.114 [id number] [facility] 12:24:36 16:05:00 Encounter Damien Elverta 350.1.13.10 ity of [place] 4.2.7.2.686 [facility] [id number] [place] 989153 [place] 2018-11-19 2018-11-19 Routine Faculty, Ad Samson [facility] 1.2 .840.114 [id number] [facility] 09:18:45 10:07:14 Alison Reis GOLF COURSE RANGER 350.1.13.10 ity of Visit [facility] 4.2.7.2.686 Eladio as MATERNAL [id number] [facility] & CHILD [address] [place] [address] 2018-11-15 2018-11-15 Routine Faculty, Ad Samson [facility] 1.2 .840.114 [id number] Univers 13:56:25 15:11:31 Modesto De La Rosa GOLF COURSE RANGER 350.1.13.10 ity of Visit [facility] 4.2.7.2.686 Eladio as MATERNAL [id number] [facility] & CHILD [address] [place] [address] 2018-11-14 2018-11-14 Emt Dispatcher [facility] 1.2 .840.114 [id number] [facility] 10:38:34 11:32:09 Visit Alison Reis GOLF COURSE RANGER 350.1.13.10 ity of [facility] 4.2.7.2.686 Eladio as MATERNAL [id number] Med ical & CHILD 369 [facility] 2018-11-12 2018-11-12 Routine Faculty, Ad [facility] 1.2 .840.114 [id number] [facility] 10:38:07 12:09:10 Inga Moore GOLF COURSE RANGER 350.1.1 3.10 ity of Visit [facility] 4.2.7.2.686 Eladio as MATERNAL [id number] Med ical & CHILD 107 [facility] 2018-11-01 2018-11-01 Case LITTLE Woodall 1.2.125.994 [id number] [facility] 00:00:00 00:00:00 Management Vidhi Kevin [facility] 350.1.13.10 ity of CLINICS 4.2.7.2.686 Noé s [id number] [facility] 113 [place] Results Test Description Test Time Test Comments Results Result Comments Source SURGICAL PATHOLOGY EXAM 2021-10-12 16:25:43 Test Item Value Reference Range Interpretation Comme nts Case Report (test code = [id number]) Surgical Pathology ?Case: [id number] ? Authorizing Provider: ?Florencio Lr MD ? Collected: ? 10/07/2021 1537 ?Ordering Location: ? ? [facility] OR ? Received: ?10/07/2021 1807 ? Department ? Pathologist: ? Catherine Moore, ? MD ? Specimen: ? ?UTERINE BODY W/OVARY AND FALLOPIAN TUBE, LEFT, Left ovary ? Final Diagnosis (test code = [id number] pc [id number]) dWMxIHtccnRmMVxlcGljOTYwMlxhbnNpXHNwbHRw U1SvbrdjOVrqLD3aYI4qmXxtdOBfsSMtTLLoKfRg f3dij183oEJkq4bdDMRSqxjgqVh0rCfhY43xh0J8 JeyrP72bqZOgETH0UTBxKBJtrGAkBRGaIQK4RSGx oNAgN2kyFPBpRG4zduhjNGsiWKikJCTbhZC0YPCz tBJtX3QxCYCySGxrMNSxjlm5ZaRzJg6zbZNpkPpp MFxwYXJkXHBsYWluXGZzMjBccGFyIEEuIFVURVJV UywgQklMQVRFUkFMIEZBTExPUElBTiBUVUJFUywg GYMMCIOLAfSFHJsyTYdVMEFCNGTVO49UWHFUJUsV MRIVKRmuY9WEZWnAP8SOXA0GWYGXNlBaPZQSPFMM S3UVH1AUY7OOQNp6QGblIMTrOSHuYL3rB0KDXliS KePGZ2FUHEAOYaDXQW7UOBZRE83iT7qPLNRFSXIG RsHDGU3HMLRHJPCTAyDCXUdHWMpMAkTUWFBSAXEf XEAfeqWrKNUnGAQOLzOMDXAWRoiGXPwxC0ZSEsDC I3AVQQELTNVKFDewZJLpPKIgTM5mVNrRJWUIZrdH RJkaBWRDEj8FVI7NAKWuzGPmPSXlHWFrGGWGVFeI ADfUQvBNOKTBKuhuKJGSRVWWFcLUTWVRZ4JhaJVw JOElBXEgQPnUHjJdU6BNNdj4DTLLH9XKBxVUQ1jP SUNMRVMgXHBhciAgICAgLSBJTlRSQUFSVEVSSUFM ZSHEEt7WEDyGMFvPDkBZCEBKSytHCDCVHMVFTJqF SATJFOSxqirpQMVpVDFzau76EBT4ZkMtv4S9TUMx TjYwXKGzHP4ewTmaJEVhTQ1uVQPrO2sjyD8qzup2 JiCfFDDkHpO6QJTveiM2Vly1HEFxOPomi3xkn3Zp P1GzoLLihLx4w1wzPGPdIqY9yAMlZArdY5xluoQa tRLiXSSvBCj7wZobBqAcZVKbd8caioKuHsDvGBMg BNZoTZUiyBgeqso8hV96KKNbaA8tqIAkBXdweoAc PqZ6AAxbPHEtXfV2DFCskAGvVDGdW2yfNEJoFTnp ADUyOXhchODgBUT9nXjjt2Q5lFVpzROxnMsgSvNd FxMoAJFMl6CbYAf3eNrjX9LtKQMoOgQ5sQReYAFw CGzaBWHoKAFvpmB7lA50LEflgrS0dTTfl4Grx72o t979sY9ktLWkPJC7YSQuEOUxcXEeFVUuFJJ1KCHv uUYvP2cfAXUnTX1fidudDAsaSGmoAHGfiJJ3BLHg vADpK6UuKJJkPXglXVUkptm2HgZgPc9iyESomYtr MPmam6clp6hjtPNaTtu4UDByRbKoOnzqKPtnb5Zq r4tbEFKdbf9fIFF1rAAiuLacz9O5hMNaFKDjzPQe xoSzCFTpPzI8LPtmKY3nnt12NIDsOYU0lh6aaKFp kDiycwVrbKUuNNsrX6XyUREfb970RNMrY0CoUGYv b3S2fbEqZkYjHDLbcKW4yjQ1EZSfHBb2dFHokrK9 mbSkwOQmB8gybB7iNQKhRW6oguzkg6onEMydOEll EYKxbHA8kuU3ITHvxIGuC1FkcN3aHLGhLBffHZXa htd9AdYzGe8ubTVugBgeAFwvSmdbIPzpJNDyooYv bnRccGduZGVjXHBsYWluXHBsYWluXGYwXGZzMjRc zLypmSgabS7nWlApFjBqJDngEU6cGODnI2aruXSd IAOmYXLwU3omFrEucH2jwRslHZmgTnEfWpFuKCfr OCHqHINaBYXcAMJxqrBfncRnjHlggsK5oGT8VAWx JCkzQBBaKKPztDKrzj1qyRstGGPqRZ2fKPErmfUu WVjivOkdMWpwDPJ6KLWcfVZtyZHrpDGcGTCwlVTp OHWgYDMysDLqPGCceHlzu9Tir3MnqFT9lF7ny2ns p4IfFRXlcMK9QO48fgI4zS0oKFZhDZ6wJPSpPB5p qCShiXOqCXYvm10teVhqtyFmSADowjAhANSfMCtc XGYyXGZzMjhcbGFuZzEwMzNcaGljaFxmMlxkYmNo VTTgAKzrT4ikOgMaEfAdYQdsOFR5jG== Clinical Information (test code = menorrhagia 4204747412) Gross Description (test code = [id number]IFw cGFy 8841912888) [file] J0VsxqT2TGVntv3= Disclaimer (test code = 4327273684) j6hqwQOnOLPve7cyVQUklOGmEsQcGmJ cZnRuYmpc hUBuHHzlnnFcVJktl0HzN7QtFrFhYKwfblWyZAVc QtuicwiqPVJlEXU0zlSyYQNiMIerVEThXHthJc2b sVJlpElxTqVvSFYal1qggzLBMDrgMuGjM782NYVq CJpuk7qnm1YgIWOiiNTck1U9MBQYrauwlJk0yWti G63ij9Q9AecfM7gtJCHvKSEkU8QjAY6fWHUoWgh0 ENE5HFQ9DZIgUABrL6ZvWS4pRBCnqWMjOGo1a3to kObaHDKhTGD0s6rkAUmtftRqFV1bbl1shBf8z4em udFiWYXjSKLniQLDLQVuM6MgqVyoRo5aaKt0lPzx MaohBCH0Uyy2CE0rkv22swx0nRkoVNKjqvncZvB2 XDzxLYVugcfvATk9QDfxQJXutPH9GPXhoDBjH6Uq GPFyRL9lkjg3VIW8HNerDYReXdS2WJKcbHLcCVUl gOakIReam226ZED6DjLnZO8qX2Tmw0L3sG5akCNi UOWewKGdJrFjLWNpfv9ppXNoXGpkl5UwZMS1ugH7 oGEriNVnGENcNU51Vvaef1ZlAwsxl1GwY26xgHP1 VWhjd9ygBB3cUqY4zoOsNJhdt8tjgC0nChY7BDwa BS5gTZ3pIFGscC0jvzzfUVNdUfEremotKYNfeFtz ehFgXj0eeMzlNHU1PXlaI5kgrV6jYnQ0VCbrS2vl yO0hKQm2UEcoeGY2UFGkfA5dYA7wfbpdd7hkEImv KEhpXCQxxqX9geC2OJPtbOLhD9VdyJ9hOIVpZD5g btqpo5qxVYF7ELgnCYMhQWE7DnIeZPAju6Qkvkr7 MwNvu4VhbLCrMKdrL51zn541LZXhtkHgP8kobWSd ljguvNYblujhQRwzgyX3ISUcrfBji5OmXYBjXFC9 WQewDNhlyQWwNXLcnOlgt4fkJ8TcmSGbHHBiBSaq XGYxXGZzMjBcbGFuZzEwMzNcaGljaFxmMVxkYmNo [file] Y3ccIkQntB3jpLntFSzfJnHlOgVkGEwwZRE4xQ== Embedded Images (test code = [id number]) [facility] WITH [id number] 11:52:00 Test Item Value Reference Range Interpretation [...] RDW-SD (test code = 49.1 fL 39.0-49.9 85094-1) RDW-CV (test code = 17.5 % 12.0-15.5 H 788-0) PLT (test code = See_Comment L [Automated 777-3) message] The sy stem which generated this result transmitted reference range : 166 - 358 10*3/ ?L. The reference r susan was not used to interpret this result as normal/abnormal . MPV (test code = 10.3 fL 9.5-12.9 53716-0) NRBC/100 WBC (test See_Comment [Automat ed code = [id number]) message] The system which generated this result transmitted reference range : 0.0 - 10.0 /100 WBCs. The refer ence range was not u sed to interpret th is result as normal/abnormal . NRBC x10^3 (test code <0.01 See_Comment [Auto mated = [id number]) message] The s ystem which generated this result transmitted reference range : 10*3/?L. The reference range was not used to interpret this result as normal/abnormal . GRAN MAT (NEUT) % 63.9 % (test code = 770-8) IMM GRAN % (test code 0.20 % = 6667648335) LYMPH % (test code = 23.4 % 736-9) MONO % (test code = 9.6 % 5905-5) EOS % (test code = 2.5 % 713-8) BASO % (test code = 0.4 % 706-2) GRAN MAT x10^3(ANC) 3.28 10*3/uL 1.88-7.09 (test code = 4714272375) IMM GRAN x10^3 (test <0.03 0.00-0.06 code = 5985159697) LYMPH x10^3 (test code 1.20 10*3/uL 1.32-3.29 L = 731-0) MONO x10^3 (test code 0.49 10*3/uL 0.33-0.92 = 742-7) EOS x10^3 (test code = 0.13 10*3/uL 0.03-0.39 711-2) BASO x10^3 (test code <0.03 0.01-0.07 = 704-7) Lab Interpretation Abnormal (test code = 11169-3) [facility] WITHOUT [id number] 00:47:16 Test Item Value Reference Range Interpretation Comments WBC (test code = 6690-2) See_Comment [A utomated message] The system [employer] generated this result transmit ramana reference range : 4.30 - 11.10 10*3/?L. The reference range was not used to interpret this result as normal/abnormal . RBC (test code = 789-8) See_Comment L [Au tomated message] The system [employer] generated this result transmit ramana reference range [...] See_Comment L [Au tomated message] The system [facility] generated this result transmit ramana reference range : 166 - 358 10*3/?L. The reference range was not used to interpret this result as normal/abnormal . MPV (test code = 11.5 fL 9.5-12.9 98516-7) RDW-CV (test code = 16.1 % 12.0-15.5 H 788-0) RDW-SD (test code = 50.6 fL 39.0-49.9 H 07305-6) NRBC x10^3 (test code = <0.01 See_Comment [Au tomated message] [id number]) The system [employer] generated this result transmit ramana reference range : 10*3/?L. The reference range was not used to interpret this result as normal/abnormal . NRBC/100 WBC (test code See_Comment [Au tomated message] = 3277852343) The system [facility] generated this result transmit ramana reference range : 0.0 - 10.0 /100 WBC s. The reference r susan was not used to interpret this result as normal/abnormal . IPF % (test code = 8692499966) Lab Interpretation (test Abnormal code = 31006-9) [facility] WITHOUT [id number] 00:47:16 Test Item Value Reference Range Interpretation Comments WBC (test code = 6690-2) See_Comment [A utomated message] The system [employer] generated this result transmit ramana reference range : 4.30 - 11.10 10*3/?L. The reference range was not used to interpret this result as normal/abnormal . RBC (test code = 789-8) See_Comment L [Au tomated message] The system [employer] generated this result transmit ramana reference range [...] See_Comment L [Au tomated message] The system [employer] generated this result transmit ramana reference range : 166 - 358 10*3/?L. The reference range was not used to interpret this result as normal/abnormal . MPV (test code = 11.5 fL 9.5-12.9 97325-8) RDW-CV (test code = 16.1 % 12.0-15.5 H 788-0) RDW-SD (test code = 50.6 fL 39.0-49.9 H 60677-0) NRBC x10^3 (test code = <0.01 See_Comment [Au tomated message] 9874352688) The system [employer] generated this result transmit ramana reference range : 10*3/?L. The reference range was not used to interpret this result as normal/abnormal . NRBC/100 WBC (test code See_Comment [Au tomated message] = 5989474032) The system [facility] generated this result transmit ramana reference range : 0.0 - 10.0 /100 WBC s. The reference r susan was not used to interpret this result as normal/abnormal . IPF % (test code = 2851792066) Lab Interpretation (test Abnormal code = 49286-2) [facility]+COOX+NA+K+GLU+CA2+2021-10-11 00:18:05 Test Item Value Reference Range Interpretation Comments PH (test code = 2) 7.35-7.45 PCO2 (test code = See_Comment [Automate d message] 3394257944) The system [employer] generated this result transmit ramana reference range : 35 - 45 mmHg. The reference range was not used to interpret this result as normal/abnormal . PO2 (test code = See_Comment H [Automated message] 7571359267) The system [employer] h generated this result transmit ramana reference range : 80 - 100 mmHg. The reference range was not used to interpret this result as normal/abnormal . HCO3 (test code = See_Comment L [Automate d message] 2835221927) The system [employer] generated this result transmit ramana reference range : 22 - 26 mEq/L. The reference range was not used to interpret this result as normal/abnormal . BE (test code = See_Comment L [Automated message] 1373152873) The system [employer] generated this result transmit ramana reference range : -3.0 - 3.0 mEq/ L. The reference r susan was not used to interpret this result as normal/abnormal . THB (test code = 5.6 g/dL 12.0-16.0 LL 4929607563) %O2HB (test code = 97.8 % 94.0-99.0 8437040870) %COHB ART (test code = 0.8 % 0.0-1.5 8783477287) %METHB ART (test code = 0.8 % 0.4-1.5 7638646507) VOL%O2 ART (test code = 9.2 % 15.0-23.0 L QUES 6020271910) NA (test code = 132 mmol/L 135-145 L 7786496765) K+ (test code = 4.3 mmol/L 3.5-5.0 4620115842) AC CA IONZ (test code = 6.60 mg/dL 4.50-5.30 HH 9757396579) GLUCOSE (test code = 150 mg/dL 70-110 H 9841004827) Lab Interpretation Abnormal (test code = 25927-7) [facility]:18:05 Test Item Value Reference Range Interpretation Comments PH (test code = 2) 7.35-7.45 PCO2 (test code = See_Comment [Automate d message] 8011606176) The system [employer] generated this result transmit ramana reference range : 35 - 45 mmHg. The reference range was not used to interpret this result as normal/abnormal . PO2 (test code = See_Comment H [Automated message] 8708085591) The system [employer] generated this result transmit ramana reference range : 80 - 100 mmHg. The reference range was not used to interpret this result as normal/abnormal . HCO3 (test code = See_Comment L [Automate d message] 4906753899) The system [employer] generated this result transmit ramana reference range : 22 - 26 mEq/L. The reference range was not used to interpret this result as normal/abnormal . BE (test code = See_Comment L [Automated message] 5667719791) The system [employer] generated this result transmit ramana reference range : -3.0 - 3.0 mEq/ L. The reference r susan was not used to interpret this result as normal/abnormal . THB (test code = 5.6 g/dL 12.0-16.0 LL 0224783579) %O2HB (test code = 97.8 % 94.0-99.0 2519462553) %COHB ART (test code = 0.8 % 0.0-1.5 7350407018) %METHB ART (test code = 0.8 % 0.4-1.5 4570051387) VOL%O2 ART (test code = 9.2 % 15.0-23.0 L QUES 2013796481) NA (test code = 132 mmol/L 135-145 L 6488557596) K+ (test code = 4.3 mmol/L 3.5-5.0 8849898233) AC CA IONZ (test code = 6.60 mg/dL 4.50-5.30 9864689630) GLUCOSE (test code = 150 mg/dL 70-110 H 0948132874) Lab Interpretation Abnormal (test code = 79077-0) [facility] 00:17:20 Test Item Value Reference Range Interpretation Comments PH (test code = 2) 7.35-7.45 PCO2 (test code = See_Comment [Automate d message] 6524622280) The system [employer] generated this result transmit ramana reference range : 35 - 45 mmHg. The reference range was not used to interpret this result as normal/abnormal . PO2 (test code = See_Comment H [Automated message] 2055835671) The system [employer] generated this result transmit ramana reference range : 80 - 100 mmHg. The reference range was not used to interpret this result as normal/abnormal . HCO3 (test code = See_Comment [Automate d message] 6599264088) The system [employer] generated this result transmit ramana reference range : 22 - 26 mEq/L. The reference range was not used to interpret this result as normal/abnormal . BE (test code = See_Comment L [Automated message] 0977068197) The system [employer] generated this result transmit ramana reference range : -3.0 - 3.0 mEq/ L. The reference r susan was not used to interpret this result as normal/abnormal . THB (test code = 6.7 g/dL 12.0-16.0 LL 7372445537) %O2HB (test code = 97.9 % 94.0-99.0 3180968461) %COHB ART (test code = 0.8 % 0.0-1.5 5489629818) %METHB ART (test code = 0.4 % 0.4-1.5 5814215019) VOL%O2 ART (test code = 10.3 % 15.0-23.0 L QUES 6479237082) NA (test code = 132 mmol/L 135-145 L 9140031733) K+ (test code = 4.1 mmol/L 3.5-5.0 1168670465) AC CA IONZ (test code = 4.40 mg/dL 4.50-5.30 L 6640964632) GLUCOSE (test code = 173 mg/dL 70-110 H 0455614591) Lab Interpretation Abnormal (test code = 94370-7) [facility]11 00:17:20 Test Item Value Reference Range Interpretation Comments PH (test code = 2) 7.35-7.45 PCO2 (test code = See_Comment [Automate d message] 5102354114) The system [employer] generated this result transmit ramana reference range : 35 - 45 mmHg. The reference range was not used to interpret this result as normal/abnormal . PO2 (test code = See_Comment H [Automated message] 5899389140) The system [employer] generated this result transmit ramana reference range : 80 - 100 mmHg. The reference range was not used to interpret this result as normal/abnormal . HCO3 (test code = See_Comment [Automate d message] 7502732531) The system [employer] generated this result transmit ramana reference range : 22 - 26 mEq/L. The reference range was not used to interpret this result as normal/abnormal . BE (test code = See_Comment L [Automated message] 4792193471) The system [employer] generated this result transmit ramana reference range : -3.0 - 3.0 mEq/ L. The reference r susan was not used to interpret this result as normal/abnormal . THB (test code = 6.7 g/dL 12.0-16.0 LL 4184231291) %O2HB (test code = 97.9 % 94.0-99.0 9279551568) %COHB ART (test code = 0.8 % 0.0-1.5 4754805270) %METHB ART (test code = 0.4 % 0.4-1.5 2069306291) VOL%O2 ART (test code = 10.3 % 15.0-23.0 L QUES 7795039240) NA (test code = 132 mmol/L 135-145 L 1576185129) K+ (test code = 4.1 mmol/L 3.5-5.0 7077137875) AC CA IONZ (test code = 4.40 mg/dL 4.50-5.30 L 2855914162) GLUCOSE (test code = 173 mg/dL 70-110 H 6170145905) Lab Interpretation Abnormal (test code = 96644-6) [facility]21-10-11 00:16:35 Test Item Value Reference Range Interpretation Comments PH (test code = 2) 7.35-7.45 PCO2 (test code = See_Comment L [Automate d message] 4085636658) The system [employer] generated this result transmit ramana reference range : 35 - 45 mmHg. The reference range was not used to interpret this result as normal/abnormal . PO2 (test code = See_Comment H [Automated message] 3552268846) The system [employer] generated this result transmit ramana reference range : 80 - 100 mmHg. The reference range was not used to interpret this result as normal/abnormal . HCO3 (test code = See_Comment L [Automate d message] 3419946158) The system [employer] generated this result transmit ramana reference range : 22 - 26 mEq/L. The reference range was not used to interpret this result as normal/abnormal . BE (test code = See_Comment L [Automated message] 8880774028) The system [employer] generated this result transmit ramana reference range : -3.0 - 3.0 mEq/ L. The reference r susan was not used to interpret this result as normal/abnormal . THB (test code = 7.3 g/dL 12.0-16.0 LL 3058243611) %O2HB (test code = 98.0 % 94.0-99.0 3582587628) %COHB ART (test code = 0.7 % 0.0-1.5 7819846769) %METHB ART (test code = 0.3 % 0.4-1.5 L 7653665661) VOL%O2 ART (test code = 10.9 % 15.0-23.0 L QUES 5951869532) NA (test code = 133 mmol/L 135-145 L 4075221310) K+ (test code = 4.2 mmol/L 3.5-5.0 2399224269) AC CA IONZ (test code = 4.30 mg/dL 4.50-5.30 L 5425385684) GLUCOSE (test code = 161 mg/dL 70-110 H 4849622712) Lab Interpretation Abnormal (test code = 50983-7) [facility]CA2+[facility]21-10-11 00:16:35 Test Item Value Reference Range Interpretation Comments PH (test code = 2) 7.35-7.45 PCO2 (test code = See_Comment L [Automate d message] 5421907613) The system [employer] generated this result transmit ramana reference range : 35 - 45 mmHg. The reference range was not used to interpret this result as normal/abnormal . PO2 (test code = See_Comment H [Automated message] 9334008725) The system [employer] generated this result transmit ramana reference range : 80 - 100 mmHg. The reference range was not used to interpret this result as normal/abnormal . HCO3 (test code = See_Comment L [Automate d message] 3493608784) The system [employer] generated this result transmit ramana reference range : 22 - 26 mEq/L. The reference range was not used to interpret this result as normal/abnormal . BE (test code = See_Comment L [Automated message] 5629709934) The system [employer] generated this result transmit ramana reference range : -3.0 - 3.0 mEq/ L. The reference r susan was not used to interpret this result as normal/abnormal . THB (test code = 7.3 g/dL 12.0-16.0 LL 3396261850) %O2HB (test code = 98.0 % 94.0-99.0 3325152486) %COHB ART (test code = 0.7 % 0.0-1.5 6971828838) %METHB ART (test code = 0.3 % 0.4-1.5 L 6716391823) VOL%O2 ART (test code = 10.9 % 15.0-23.0 L QUES 1623739933) NA (test code = 133 mmol/L 135-145 L 1897644845) K+ (test code = 4.2 mmol/L 3.5-5.0 6901504659) AC CA IONZ (test code = 4.30 mg/dL 4.50-5.30 L 9252985202) GLUCOSE (test code = 161 mg/dL 70-110 H 8813698982) Lab Interpretation Abnormal (test code = 65294-8) [facility]CA2+[facility]21-10-11 00:15:34 Test Item Value Reference Range Interpretation Comments PH (test code = 2) 7.35-7.45 PCO2 (test code = See_Comment L [Automate d message] 0780308342) The system [employer] generated this result transmit ramana reference range : 35 - 45 mmHg. The reference range was not used to interpret this result as normal/abnormal . PO2 (test code = See_Comment H [Automated message] 5661189776) The system [employer] generated this result transmit ramana reference range : 80 - 100 mmHg. The reference range was not used to interpret this result as normal/abnormal . HCO3 (test code = See_Comment L [Automate d message] 4910510984) The system [employer] generated this result transmit ramana reference range : 22 - 26 mEq/L. The reference range was not used to interpret this result as normal/abnormal . BE (test code = See_Comment [Automated message] 7084669921) The system [employer] generated this result transmit ramana reference range : -3.0 - 3.0 mEq/ L. The reference r susan was not used to interpret this result as normal/abnormal . THB (test code = 7.8 g/dL 12.0-16.0 LL 2389317237) %O2HB (test code = 98.1 % 94.0-99.0 5167668395) %COHB ART (test code = 0.9 % 0.0-1.5 1697664029) %METHB ART (test code = 0.2 % 0.4-1.5 L 9630993546) VOL%O2 ART (test code = 12.2 % 15.0-23.0 L QUES 2895829379) NA (test code = 133 mmol/L 135-145 L 4333718464) K+ (test code = 4.3 mmol/L 3.5-5.0 4899163545) AC CA IONZ (test code = 5.30 mg/dL 4.50-5.30 3937783013) GLUCOSE (test code = 111 mg/dL 70-110 H 2352425860) Lab Interpretation Abnormal (test code = 00235-3) [facility]CA2+[facility]21-10-11 00:15:34 Test Item Value Reference Range Interpretation Comments PH (test code = 2) 7.35-7.45 PCO2 (test code = See_Comment L [Automate d message] 6408113257) The system [employer] generated this result transmit ramana reference range : 35 - 45 mmHg. The reference range was not used to interpret this result as normal/abnormal . PO2 (test code = See_Comment H [Automated message] 7099518294) The system [employer] generated this result transmit ramana reference range : 80 - 100 mmHg. The reference range was not used to interpret this result as normal/abnormal . HCO3 (test code = See_Comment L [Automate d message] 7685828302) The system [employer] generated this result transmit ramana reference range : 22 - 26 mEq/L. The reference range was not used to interpret this result as normal/abnormal . BE (test code = See_Comment [Automated message] 2002113033) The system [employer] generated this result transmit ramana reference range : -3.0 - 3.0 mEq/ L. The reference r susan was not used to interpret this result as normal/abnormal . THB (test code = 7.8 g/dL 12.0-16.0 LL 3668116584) %O2HB (test code = 98.1 % 94.0-99.0 6955682422) %COHB ART (test code = 0.9 % 0.0-1.5 4809617614) %METHB ART (test code = 0.2 % 0.4-1.5 L 5030085409) VOL%O2 ART (test code = 12.2 % 15.0-23.0 L QUES 8877062010) NA (test code = 133 mmol/L 135-145 L 5867799593) K+ (test code = 4.3 mmol/L 3.5-5.0 7202909318) AC CA IONZ (test code = 5.30 mg/dL 4.50-5.30 6791188890) GLUCOSE (test code = 111 mg/dL 70-110 H 1887353713) Lab Interpretation Abnormal (test code = 82479-9) [facility] METABOLIC PANEL (NA, K, CL, CO2, GLUCOSE, BUN, CREATININE, CA)2021-10-10 11:50:35 Test Item Value Reference Range Interpretation Comments NA (test code = 135 mmol/L 135-145 5215984483) K (test code = 3.6 mmol/L 3.5-5.0 2029325221) CL (test code = 105 mmol/L 98-108 3911942187) CO2 TOTAL (test code = 30 mmol/L 23-31 6071149852) AGAP (test code = <1 2-16 L 3347285024) BUN (test code = 3 mg/dL 7-23 L 8256387852) GLUCOSE (test code = 102 mg/dL 70-110 0451224658) CREATININE (test code = 0.50 mg/dL 0.50-1.04 3873786292) CALCIUM (test code = 8.1 mg/dL 8.6-10.6 L 2420215693) eGFR (test code = mL/min/1.73m2 8671979298) MICKY (test code = MICKY) Association of [...] tests). Lab Interpretation Abnormal (test code = 60665-7) [facility] METABOLIC PANEL (NA, K, CL, CO2, GLUCOSE, BUN, CREATININE, CA)2021-10-10 11:50:35 Test Item Value Reference Range Interpretation Comments NA (test code = 135 mmol/L 135-145 7789629916) K (test code = 3.6 mmol/L 3.5-5.0 9707868532) CL (test code = 105 mmol/L 98-108 1799936806) CO2 TOTAL (test code = 30 mmol/L 23-31 0843191253) AGAP (test code = <1 2-16 L 0476628245) BUN (test code = 3 mg/dL 7-23 L 6365091213) GLUCOSE (test code = 102 mg/dL 70-110 3910700040) CREATININE (test code = 0.50 mg/dL 0.50-1.04 2560127813) CALCIUM (test code = 8.1 mg/dL 8.6-10.6 L 3000343644) eGFR (test code = mL/min/1.73m2 6063750292) MICKY (test code = MICKY) Association of [...] tests). Lab Interpretation Abnormal (test code = 16098-3) [facility] Test Item Value Reference Range Interpretation Comments MAGNESIUM (test code = 1559521551) 2.0 mg/dL 1.7-2.4 Lab Interpretation (test code = Normal 10003-0) [facility] 11:49:04 Test Item Value Reference Range Interpretation Comments PHOSPHORUS (test code = 9953617814) 3.4 mg/dL 2.5-5.0 Lab Interpretation (test code = Normal 08926-5) [facility] Test Item Value Reference Range Interpretation Comments MAGNESIUM (test code = 5356535523) 2.0 mg/dL 1.7-2.4 Lab Interpretation (test code = Normal 78571-2) [facility] 11:49:04 Test Item Value Reference Range Interpretation Comments PHOSPHORUS (test code = 5432491330) 3.4 mg/dL 2.5-5.0 Lab Interpretation (test code = Normal 40224-7) [facility] [id number] 11:26:59 Test Item Value Reference Range Interpretation Comments WBC (test code = 6690-2) See_Comment [A utomated message] The system [employer] generated this result transmit ramana reference range : 4.30 - 11.10 10*3/?L. The reference range was not used to interpret this result as normal/abnormal . RBC (test code = 789-8) See_Comment L [Au tomated message] The system [employer] generated this result transmit ramana reference range [...] See_Comment L [Au tomated message] The system [employer] generated this result transmit ramana reference range : 166 - 358 10*3/?L. The reference range was not used to interpret this result as normal/abnormal . MPV (test code = 10.9 fL 9.5-12.9 49367-9) RDW-CV (test code = 16.4 % 12.0-15.5 H 788-0) RDW-SD (test code = 50.1 fL 39.0-49.9 H 32931-3) NRBC x10^3 (test code = <0.01 See_Comment [Au tomated message] 1849393250) The system [employer] generated this result transmit ramana reference range : 10*3/?L. The reference range was not used to interpret this result as normal/abnormal . NRBC/100 WBC (test code See_Comment [Au tomated message] = 0362324827) The system [facility] generated this result transmit ramana reference range : 0.0 - 10.0 /100 WBC s. The reference r susan was not used to interpret this result as normal/abnormal . IPF % (test code = 0616209323) Lab Interpretation (test Abnormal code = 26593-1) [facility] WITHOUT CACW2226-07-74 11:26:59 Test Item Value Reference Range Interpretation Comments WBC (test code = 6690-2) See_Comment [A utomated message] The system [facility] generated this result transmit ramana reference range : 4.30 - 11.10 10*3/?L. The reference range was not used to interpret this result as normal/abnormal . RBC (test code = 789-8) See_Comment L [Au tomated message] The system [facility] generated this result transmit ramana reference [...] See_Comment L [Au tomated message] The system [facility] generated this result transmit ramana reference range : 166 - 358 10*3/?L. The reference range was not used to interpret this result as normal/abnormal . MPV (test code = 10.9 fL 9.5-12.9 13571-8) RDW-CV (test code = 16.4 % 12.0-15.5 H 788-0) RDW-SD (test code = 50.1 fL 39.0-49.9 H 15999-1) NRBC x10^3 (test code = <0.01 See_Comment [Au tomated message] 2784137393) The system [employer] generated this result transmit ramana reference range : 10*3/?L. The reference range was not used to interpret this result as normal/abnormal . NRBC/100 WBC (test code See_Comment [Au tomated message] = 7242510782) The system [facility] generated this result transmit ramana reference range : 0.0 - 10.0 /100 WBC s. The reference r susan was not used to interpret this result as normal/abnormal . IPF % (test code = 1847187085) Lab Interpretation (test Abnormal code = 39723-2) [facility] WITHOUT [id number] 00:02:03 Test Item Value Reference Range Interpretation Comments WBC (test code = 6690-2) See_Comment [A utomated message] The system [facility] [employer] generated this result transmit ramana reference range : 4.30 - 11.10 10*3/?L. The reference range was not used to interpret this result as normal/abnormal . RBC (test code = 789-8) See_Comment L [Au tomated message] The system [facility] [employer] generated this result transmit ramana reference range [...] See_Comment L [Au tomated message] The system [facility] generated this result transmit ramana reference range : 166 - 358 10*3/?L. The reference range was not used to interpret this result as normal/abnormal . MPV (test code = 11.0 fL 9.5-12.9 46913-8) RDW-CV (test code = 15.9 % 12.0-15.5 H 788-0) RDW-SD (test code = 49.4 fL 39.0-49.9 25474-8) NRBC x10^3 (test code = See_Comment [Au tomated message] 2644587408) The system [facility] generated this result transmit ramana reference range : 10*3/?L. The reference range was not used to interpret this result as normal/abnormal . NRBC/100 WBC (test code See_Comment [Au tomated message] = 2441813773) The system [facility] generated this result transmit ramana reference range : 0.0 - 10.0 /100 WBC s. The reference r susan was not used to interpret this result as normal/abnormal . IPF % (test code = 3539493128) Lab Interpretation (test Abnormal code = 51904-8) [facility] WITHOUT [id number] 00:02:03 Test Item Value Reference Range Interpretation Comments WBC (test code = 6690-2) See_Comment [A utomated message] The system [facility] generated this result transmit ramana reference range : 4.30 - 11.10 10*3/?L. The reference range was not used to interpret this result as normal/abnormal . RBC (test code = 789-8) See_Comment L [Au tomated message] The system [employer] generated this result transmit ramana reference range [...] See_Comment L [Au tomated message] The system [employer] generated this result transmit ramana reference range : 166 - 358 10*3/?L. The reference range was not used to interpret this result as normal/abnormal . MPV (test code = 11.0 fL 9.5-12.9 09902-5) RDW-CV (test code = 15.9 % 12.0-15.5 H 788-0) RDW-SD (test code = 49.4 fL 39.0-49.9 60809-8) NRBC x10^3 (test code = See_Comment [Au tomated message] 5118930365) The system [employer] generated this result transmit ramana reference range : 10*3/?L. The reference range was not used to interpret this result as normal/abnormal . NRBC/100 WBC (test code See_Comment [Au tomated message] = 8829785327) The system [facility] generated this result transmit ramana reference range : 0.0 - 10.0 /100 WBC s. The reference r susan was not used to interpret this result as normal/abnormal . IPF % (test code = 1770323200) Lab Interpretation (test Abnormal code = 53945-7) [facility] WITHOUT [id number] 16:52:03 Test Item Value Reference Range Interpretation Comments WBC (test code = 6690-2) See_Comment [A utomated message] The system [facility] generated this result transmit ramana reference range : 4.30 - 11.10 10*3/?L. The reference range was not used to interpret this result as normal/abnormal . RBC (test code = 789-8) See_Comment L [Au tomated message] The system [facility] generated this result transmit ramana reference [...] See_Comment L [Au tomated message] The system [facility] generated this result transmit ramana reference range : 166 - 358 10*3/?L. The reference range was not used to interpret this result as normal/abnormal . MPV (test code = 10.4 fL 9.5-12.9 68482-8) RDW-CV (test code = 15.8 % 12.0-15.5 H 788-0) RDW-SD (test code = 47.8 fL 39.0-49.9 35775-3) NRBC x10^3 (test code = See_Comment [Au tomated message] 7437949173) The system [facility] generated this result transmit ramana reference range : 10*3/?L. The reference range was not used to interpret this result as normal/abnormal . NRBC/100 WBC (test code See_Comment [Au tomated message] = 9616904979) The system [facility] generated this result transmit ramana reference range : 0.0 - 10.0 /100 WBC s. The reference r susan was not used to interpret this result as normal/abnormal . IPF % (test code = 4983835592) Lab Interpretation (test Abnormal code = 03534-6) [facility] WITHOUT [id number] 16:52:03 Test Item Value Reference Range Interpretation Comments WBC (test code = 6690-2) See_Comment [A utomated message] The system [employer] generated this result transmit ramana reference range : 4.30 - 11.10 10*3/?L. The reference range was not used to interpret this result as normal/abnormal . RBC (test code = 789-8) See_Comment L [Au tomated message] The system [employer] generated this result transmit ramana reference range [...] See_Comment L [Au tomated message] The system [employer] generated this result transmit ramana reference range : 166 - 358 10*3/?L. The reference range was not used to interpret this result as normal/abnormal . MPV (test code = 10.4 fL 9.5-12.9 05827-9) RDW-CV (test code = 15.8 % 12.0-15.5 H 788-0) RDW-SD (test code = 47.8 fL 39.0-49.9 52749-8) NRBC x10^3 (test code = See_Comment [Au tomated message] 3656355721) The system [employer] generated this result transmit ramana reference range : 10*3/?L. The reference range was not used to interpret this result as normal/abnormal . NRBC/100 WBC (test code See_Comment [Au tomated message] = 9312636122) The system [facility] generated this result transmit ramana reference range : 0.0 - 10.0 /100 WBC s. The reference r susan was not used to interpret this result as normal/abnormal . IPF % (test code = 8471331531) Lab Interpretation (test Abnormal code = 97067-4) [facility] Test Item Value Reference Range Interpretation Comments MAGNESIUM (test code = 0006328882) 1.6 mg/dL 1.7-2.4 L Lab Interpretation (test code = Abnormal 55542-1) [facility] Test Item Value Reference Range Interpretation Comments PHOSPHORUS (test code = 3308327151) 3.0 mg/dL 2.5-5.0 Lab Interpretation (test code = Normal 22986-1) [facility] Test Item Value Reference Range Interpretation Comments MAGNESIUM (test code = 7291297718) 1.6 mg/dL 1.7-2.4 L Lab Interpretation (test code = Abnormal 14886-5) [facility] 13:44:06 Test Item Value Reference Range Interpretation Comments PHOSPHORUS (test code = 3156144755) 3.0 mg/dL 2.5-5.0 Lab Interpretation (test code = Normal 48319-1) [facility] Packed RBC (in units), 1 Units 2021-10-09 10:06:26 Test Item Value Reference Range Interpretation Comments Cross Match Result Compatible (test code = 4409) ISBT Blood Type Code (test code = 818909) Unit Blood Type (test A Pos code = 4410) Unit Number (test [id number] code = 4411) Blood Expiration Date & Time (test code = 594924) Status Information Issued (test code = 4412) Product Red Blood Cells Identification (test code = 4413) Product Code (test B4770L05 Performed at [facility] code = 4414) Laboratory Services - [facility] Blood [address] [place] [address]Itou Free: [phone] A No. [id number] [facility] Packed RBC (in units), 1 Units 2021-10-09 10:06:26 Test Item Value Reference Range Interpretation Comments Cross Match Result Compatible (test code = 4409) ISBT Blood Type Code (test code = 328427) Unit Blood Type (test A Pos code = 4410) Unit Number (test [id number] code = 4411) Blood Expiration Date & Time (test code = 478538) Status Information Issued (test code = 4412) Product Red Blood Cells Identification (test code = 4413) Product Code (test S5876L93 Performed at [facility] code = 4414) Laboratory Services - [facility] Blood [address] [address]Egjf Free: [phone] A No. [id number] [facility] (NA, K, CL, CO2, GLUCOSE, BUN, CREATININE, CA)2021-10-09 10:00:59 Test Item Value Reference Range Interpretation Comments NA (test code = 134 mmol/L 135-145 L 1134439004) K (test code = 3.9 mmol/L 3.5-5.0 0587753574) CL (test code = 106 mmol/L 98-108 6199722055) CO2 TOTAL (test code = 29 mmol/L 23-31 6521637885) AGAP (test code = <1 2-16 L 6681925120) BUN (test code = 7 mg/dL 7-23 8474014517) GLUCOSE (test code = 119 mg/dL 70-110 H 0208011561) CREATININE (test code = 0.49 mg/dL 0.50-1.04 L 3070524029) CALCIUM (test code = 7.5 mg/dL 8.6-10.6 L 4573148514) eGFR (test code = mL/min/1.73m2 9841297435) MICKY (test code = MICKY) Association of [...] tests). Lab Interpretation Abnormal (test code = 82954-9) [facility] METABOLIC PANEL (NA, K, CL, CO2, GLUCOSE, BUN, CREATININE, CA)2021-10-09 10:00:59 Test Item Value Reference Range Interpretation Comments NA (test code = 134 mmol/L 135-145 L 7216886738) K (test code = 3.9 mmol/L 3.5-5.0 5890464228) CL (test code = 106 mmol/L 98-108 0943249060) CO2 TOTAL (test code = 29 mmol/L 23-31 8944285849) AGAP (test code = <1 2-16 L 1230130735) BUN (test code = 7 mg/dL 7-23 7566251479) GLUCOSE (test code = 119 mg/dL 70-110 H 6279885189) CREATININE (test code = 0.49 mg/dL 0.50-1.04 L 7895628360) CALCIUM (test code = 7.5 mg/dL 8.6-10.6 L 8818245996) eGFR (test code = mL/min/1.73m2 8122501696) MICKY (test code = MICKY) Association of [...] tests). Lab Interpretation Abnormal (test code = 16616-8) [facility] WITHOUT [id number] 09:00:48 Test Item Value Reference Range Interpretation Comments WBC (test code = See_Comment [Automated message] 6690-2) The system [employer] generated this result transmitted ref erence range: 4.30 - 1 1.10 10*3/?L. The reference range was not used to int erpret this result as normal/abnormal . RBC (test code = 789-8) See_Comment L [Au tomated message] The system [employer] generated this result transmitted ref erence range: [...] See_Comment L [Au tomated message] The system [employer] generated this result transmitted ref erence range: 166 - 35 8 10*3/?L. The reference range was not used to int erpret this result as normal/abnormal . MPV (test code = 10.9 fL 9.5-12.9 63810-9) RDW-CV (test code = 16.3 % 12.0-15.5 H 788-0) RDW-SD (test code = 48.7 fL 39.0-49.9 59321-0) NRBC x10^3 (test code = <0.01 See_Comment [Au tomated message] 3751128353) The system [employer] generated this result transmitted ref erence range: 10*3/?L. The reference range was not used to int erpret this result as normal/abnormal . NRBC/100 WBC (test code See_Comment [Au tomated message] = 7246402408) The system [employer] generated this result transmitted ref erence range: 0.0 - 10 .0 /100 WBCs. The reference range was not used to int erpret this result as normal/abnormal . IPF % (test code = 3.6 % 1.3-7.7 Platelet count 6479518366) measured by fluorescence me thod. Lab Interpretation Abnormal (test code = 70033-8) [facility] WITHOUT [id number] 09:00:48 Test Item Value Reference Range Interpretation Comments WBC (test code = See_Comment [Automated message] 6690-2) The system [employer] generated this result transmitted ref erence range: 4.30 - 1 1.10 10*3/?L. The reference range was not used to int erpret this result as normal/abnormal . RBC (test code = 789-8) See_Comment L [Au tomated message] The system [employer] generated this result transmitted ref erence range: [...] See_Comment L [Au tomated message] The system [employer] generated this result transmitted ref erence range: 166 - 35 8 10*3/?L. The reference range was not used to int erpret this result as normal/abnormal . MPV (test code = 10.9 fL 9.5-12.9 89424-4) RDW-CV (test code = 16.3 % 12.0-15.5 H 788-0) RDW-SD (test code = 48.7 fL 39.0-49.9 32120-9) NRBC x10^3 (test code = <0.01 See_Comment [Au tomated message] 4063913242) The system [employer] generated this result transmitted ref erence range: 10*3/?L. The reference range was not used to int erpret this result as normal/abnormal . NRBC/100 WBC (test code See_Comment [Au tomated message] = 0139220763) The system [employer] generated this result transmitted ref erence range: 0.0 - 10 .0 /100 WBCs. The reference range was not used to int erpret this result as normal/abnormal . IPF % (test code = 3.6 % 1.3-7.7 Platelet count 7273116324) measured by fluorescence me thod. Lab Interpretation Abnormal (test code = 14763-4) [facility] WITHOUT [id number] 01:42:07 Test Item Value Reference Range Interpretation Comments WBC (test code = See_Comment [Automated message] 6690-2) The system [employer] generated this result transmitted ref erence range: 4.30 - 1 1.10 10*3/?L. The reference range was not used to int erpret this result as normal/abnormal . RBC (test code = 789-8) See_Comment L [Au tomated message] The system [employer] generated this result transmitted ref erence range: [...] See_Comment L [Au tomated message] The system [employer] generated this result transmitted ref erence range: 166 - 35 8 10*3/?L. The reference range was not used to int erpret this result as normal/abnormal . MPV (test code = 10.6 fL 9.5-12.9 34253-2) RDW-CV (test code = 16.2 % 12.0-15.5 H 788-0) RDW-SD (test code = 48.3 fL 39.0-49.9 58997-8) NRBC x10^3 (test code = See_Comment [Au tomated message] 3126329245) The system [employer] generated this result transmitted ref erence range: 10*3/?L. The reference range was not used to int erpret this result as normal/abnormal . NRBC/100 WBC (test code See_Comment [Au tomated message] = 7243736175) The system [facility] generated this result transmitted ref erence range: 0.0 - 10 .0 /100 WBCs. The reference range was not used to int erpret this result as normal/abnormal . IPF % (test code = 3.3 % 1.3-7.7 Platelet count 5614702414) measured by fluorescence me thod. Lab Interpretation Abnormal (test code = 64784-1) [facility] WITHOUT [id number] 01:42:07 Test Item Value Reference Range Interpretation Comments WBC (test code = See_Comment [Automated message] 6690-2) The system [employer] generated this result transmitted ref erence range: 4.30 - 1 1.10 10*3/?L. The reference range was not used to int erpret this result as normal/abnormal . RBC (test code = 789-8) See_Comment L [Au tomated message] The system [employer] generated this result transmitted ref erence range: [...] See_Comment L [Au tomated message] The system [employer] generated this result transmitted ref erence range: 166 - 35 8 10*3/?L. The reference range was not used to int erpret this result as normal/abnormal . MPV (test code = 10.6 fL 9.5-12.9 64582-4) RDW-CV (test code = 16.2 % 12.0-15.5 H 788-0) RDW-SD (test code = 48.3 fL 39.0-49.9 47848-9) NRBC x10^3 (test code = See_Comment [Au tomated message] 8396924636) The system [employer] generated this result transmitted ref erence range: 10*3/?L. The reference range was not used to int erpret this result as normal/abnormal . NRBC/100 WBC (test code See_Comment [Au tomated message] = 2896503177) The system [facility] generated this result transmitted ref erence range: 0.0 - 10 .0 /100 WBCs. The reference range was not used to int erpret this result as normal/abnormal . IPF % (test code = 3.3 % 1.3-7.7 Platelet count 6408929765) measured by fluorescence me thod. Lab Interpretation Abnormal (test code = 94651-3) [facility] METABOLIC PANEL (NA, K, CL, CO2, GLUCOSE, BUN, CREATININE, CA)2021-10-09 01:19:05 Test Item Value Reference Range Interpretation Comments NA (test code = 135 mmol/L 135-145 5871282022) K (test code = 4.0 mmol/L 3.5-5.0 8363612731) CL (test code = 106 mmol/L 98-108 3589560443) CO2 TOTAL (test code = 27 mmol/L 23-31 3014553648) AGAP (test code = 2-16 5343253500) BUN (test code = 8 mg/dL 7-23 3396832840) GLUCOSE (test code = 98 mg/dL 70-110 6449733302) CREATININE (test code = 0.49 mg/dL 0.50-1.04 L 4597945572) CALCIUM (test code = 7.6 mg/dL 8.6-10.6 L 8663673420) eGFR (test code = mL/min/1.73m2 7659872230) MICKY (test code = MICKY) Association of [...] tests). Lab Interpretation Abnormal (test code = 62342-9) [facility] METABOLIC PANEL (NA, K, CL, CO2, GLUCOSE, BUN, CREATININE, CA)2021-10-09 01:19:05 Test Item Value Reference Range Interpretation Comments NA (test code = 135 mmol/L 135-145 9643101121) K (test code = 4.0 mmol/L 3.5-5.0 8393467135) CL (test code = 106 mmol/L 98-108 4262129803) CO2 TOTAL (test code = 27 mmol/L 23-31 6673063292) AGAP (test code = 2-16 1484252619) BUN (test code = 8 mg/dL 7-23 2902533177) GLUCOSE (test code = 98 mg/dL 70-110 9083190787) CREATININE (test code = 0.49 mg/dL 0.50-1.04 L 3614304090) CALCIUM (test code = 7.6 mg/dL 8.6-10.6 L 9564716951) eGFR (test code = mL/min/1.73m2 3245530879) MICKY (test code = MICKY) Association of [...] tests). Lab Interpretation Abnormal (test code = 11202-8) [facility] METABOLIC PANEL (NA, K, CL, CO2, GLUCOSE, BUN, CREATININE, CA)2021-10-08 16:28:34 Test Item Value Reference Range Interpretation Comments NA (test code = 134 mmol/L 135-145 L 5034660305) K (test code = 4.1 mmol/L 3.5-5.0 5079242237) CL (test code = 106 mmol/L 98-108 7962654400) CO2 TOTAL (test code = 26 mmol/L 23-31 7292767010) AGAP (test code = 2-16 8662817839) BUN (test code = 6 mg/dL 7-23 L 2519525823) GLUCOSE (test code = 124 mg/dL 70-110 H 0186582334) CREATININE (test code = 0.48 mg/dL 0.50-1.04 L 3770077712) CALCIUM (test code = 8.0 mg/dL 8.6-10.6 L 7523229660) eGFR (test code = mL/min/1.73m2 4894557518) MICKY (test code = MICKY) Association of [...] tests). Lab Interpretation Abnormal (test code = 55425-4) [facility] METABOLIC PANEL (NA, K, CL, CO2, GLUCOSE, BUN, CREATININE, CA)2021-10-08 16:28:34 Test Item Value Reference Range Interpretation Comments NA (test code = 134 mmol/L 135-145 L 7676221317) K (test code = 4.1 mmol/L 3.5-5.0 2283043652) CL (test code = 106 mmol/L 98-108 9176750923) CO2 TOTAL (test code = 26 mmol/L 23-31 8638747766) AGAP (test code = 2-16 6257718937) BUN (test code = 6 mg/dL 7-23 L 8004780490) GLUCOSE (test code = 124 mg/dL 70-110 H 0795679296) CREATININE (test code = 0.48 mg/dL 0.50-1.04 L 1717304964) CALCIUM (test code = 8.0 mg/dL 8.6-10.6 L 8853491935) eGFR (test code = mL/min/1.73m2 7138410046) MICKY (test code = MICKY) Association of [...] tests). Lab Interpretation Abnormal (test code = 39082-8) [facility] METABOLIC PANEL (NA, K, CL, CO2, GLUCOSE, BUN, CREATININE, CA)2021-10-08 16:28:34 Test Item Value Reference Range Interpretation Comments NA (test code = 134 mmol/L 135-145 L 7752655852) K (test code = 4.1 mmol/L 3.5-5.0 7117010130) CL (test code = 106 mmol/L 98-108 9162210291) CO2 TOTAL (test code = 26 mmol/L 23-31 6846609659) AGAP (test code = 2-16 9760152502) BUN (test code = 6 mg/dL 7-23 L 4693695317) GLUCOSE (test code = 124 mg/dL 70-110 H 8999530948) CREATININE (test code = 0.48 mg/dL 0.50-1.04 L 2659548803) CALCIUM (test code = 8.0 mg/dL 8.6-10.6 L 3445505836) eGFR (test code = mL/min/1.73m2 7420932932) MICKY (test code = MICKY) Association of [...] tests). Lab Interpretation Abnormal (test code = 68204-2) [facility] WITHOUT [id number] 16:00:11 Test Item Value Reference Range Interpretation Comments WBC (test code = See_Comment [Automated message] 6690-2) The system [employer] generated this result transmitted ref erence range: 4.30 - 1 1.10 10*3/?L. The reference range was not used to int erpret this result as normal/abnormal . RBC (test code = 789-8) See_Comment L [Au tomated message] The system [employer] generated this result transmitted ref erence range: [...] See_Comment L [Au tomated message] The system [employer] generated this result transmitted ref erence range: 166 - 35 8 10*3/?L. The reference range was not used to int erpret this result as normal/abnormal . MPV (test code = 10.6 fL 9.5-12.9 88446-2) RDW-CV (test code = 15.9 % 12.0-15.5 H 788-0) RDW-SD (test code = 47.8 fL 39.0-49.9 42537-3) NRBC x10^3 (test code = See_Comment [Au tomated message] 2765868655) The system [employer] generated this result transmitted ref erence range: 10*3/?L. The reference range was not used to int erpret this result as normal/abnormal . NRBC/100 WBC (test code See_Comment [Au tomated message] = 5689516037) The system [employer] generated this result transmitted ref erence range: 0.0 - 10 .0 /100 WBCs. The reference range was not used to int erpret this result as normal/abnormal . IPF % (test code = 6.3 % 1.3-7.7 Platelet count 7787235118) measured by fluorescence me thod. Lab Interpretation Abnormal (test code = 13544-0) [facility] WITHOUT [id number] 16:00:11 Test Item Value Reference Range Interpretation Comments WBC (test code = See_Comment [Automated message] 6690-2) The system [employer] generated this result transmitted ref erence range: 4.30 - 1 1.10 10*3/?L. The reference range was not used to int erpret this result as normal/abnormal . RBC (test code = 789-8) See_Comment L [Au tomated message] The system [employer] generated this result transmitted ref erence range: [...] See_Comment L [Au tomated message] The system [facility] generated this result transmitted ref erence range: 166 - 35 8 10*3/?L. The reference range was not used to int erpret this result as normal/abnormal . MPV (test code = 10.6 fL 9.5-12.9 15964-7) RDW-CV (test code = 15.9 % 12.0-15.5 H 788-0) RDW-SD (test code = 47.8 fL 39.0-49.9 84919-5) NRBC x10^3 (test code = See_Comment [Au tomated message] 4831180576) The system [facility] generated this result transmitted ref erence range: 10*3/?L. The reference range was not used to int erpret this result as normal/abnormal . NRBC/100 WBC (test code See_Comment [Au tomated message] = 3400113241) The system [facility] generated this result transmitted ref erence range: 0.0 - 10 .0 /100 WBCs. The reference range was not used to int erpret this result as normal/abnormal . IPF % (test code = 6.3 % 1.3-7.7 Platelet count 0623466812) measured by fluorescence me thod. Lab Interpretation Abnormal (test code = 24782-4) [facility] WITHOUT [id number] 16:00:11 Test Item Value Reference Range Interpretation Comments WBC (test code = See_Comment [Automated message] 6690-2) The system [employer] generated this result transmitted ref erence range: 4.30 - 1 1.10 10*3/?L. The reference range was not used to int erpret this result as normal/abnormal . RBC (test code = 789-8) See_Comment L [Au tomated message] The system [employer] generated this result transmitted ref erence range: [...] See_Comment L [Au tomated message] The system [employer] generated this result transmitted ref erence range: 166 - 35 8 10*3/?L. The reference range was not used to int erpret this result as normal/abnormal . MPV (test code = 10.6 fL 9.5-12.9 28675-5) RDW-CV (test code = 15.9 % 12.0-15.5 H 788-0) RDW-SD (test code = 47.8 fL 39.0-49.9 71430-3) NRBC x10^3 (test code = See_Comment [Au tomated message] 1949581607) The system [employer] generated this result transmitted ref erence range: 10*3/?L. The reference range was not used to int erpret this result as normal/abnormal . NRBC/100 WBC (test code See_Comment [Au tomated message] = 6828470892) The system [employer] generated this result transmitted ref erence range: 0.0 - 10 .0 /100 WBCs. The reference range was not used to int erpret this result as normal/abnormal . IPF % (test code = 6.3 % 1.3-7.7 Platelet count 7658563129) measured by fluorescence me thod. Lab Interpretation Abnormal (test code = 85851-0) [facility] 15:36:16 Test Item Value Reference Range Interpretation Comments HGB A1C (test code = 5.3 % 4.0-5.7 4548-4) MICKY (test code = MICKY) Reference RangesNormal: <5.7%Prediabetes: 5.7 - 6.4%Diabetes: > 6.5% Lab Interpretation (test Normal code = 26482-1) [facility]2021-10-08 15:36:16 Test Item Value Reference Range Interpretation Comments HGB A1C (test code = 5.3 % 4.0-5.7 4548-4) MICKY (test code = MICKY) Reference RangesNormal: <5.7%Prediabetes: 5.7 - 6.4%Diabetes: > 6.5% Lab Interpretation (test Normal code = 03440-1) [facility]A1C[facility]2021-10-08 15:36:16 Test Item Value Reference Range Interpretation Comments HGB A1C (test code = 5.3 % 4.0-5.7 4548-4) MICKY (test code = MICKY) Reference RangesNormal: <5.7%Prediabetes: 5.7 - 6.4%Diabetes: > 6.5% Lab Interpretation (test Normal code = 53150-6) [facility] (NA, K, CL, CO2, GLUCOSE, BUN, CREATININE, CA)2021-10-08 13:25:28 Test Item Value Reference Range Interpretation Comments NA (test code = 135 mmol/L 135-145 4008991775) K (test code = 4.0 mmol/L 3.5-5.0 3290550214) CL (test code = 110 mmol/L 98-108 H 9516972378) CO2 TOTAL (test code = 23 mmol/L 23-31 0933004562) AGAP (test code = 2-16 4984467887) BUN (test code = 8 mg/dL 7-23 2604869833) GLUCOSE (test code = 98 mg/dL 70-110 9953767324) CREATININE (test code = 0.48 mg/dL 0.50-1.04 L 6292631208) CALCIUM (test code = 9.7 mg/dL 8.6-10.6 7439591826) eGFR (test code = mL/min/1.73m2 5500635893) MICKY (test code = MICKY) Association of [...] tests). Lab Interpretation Abnormal (test code = 15554-0) [facility] METABOLIC PANEL (NA, K, CL, CO2, GLUCOSE, BUN, CREATININE, CA)2021-10-08 13:25:28 Test Item Value Reference Range Interpretation Comments NA (test code = 135 mmol/L 135-145 6382295727) K (test code = 4.0 mmol/L 3.5-5.0 2674629024) CL (test code = 110 mmol/L 98-108 H 1555913636) CO2 TOTAL (test code = 23 mmol/L 23-31 7083843707) AGAP (test code = 2-16 5571934757) BUN (test code = 8 mg/dL 7-23 8684828919) GLUCOSE (test code = 98 mg/dL 70-110 9844657785) CREATININE (test code = 0.48 mg/dL 0.50-1.04 L 5815636885) CALCIUM (test code = 9.7 mg/dL 8.6-10.6 4674204378) eGFR (test code = mL/min/1.73m2 7043401291) MICKY (test code = MICKY) Association of [...] tests). Lab Interpretation Abnormal (test code = 43214-8) [facility] METABOLIC PANEL (NA, K, CL, CO2, GLUCOSE, BUN, CREATININE, CA)2021-10-08 13:25:28 Test Item Value Reference Range Interpretation Comments NA (test code = 135 mmol/L 135-145 5181347366) K (test code = 4.0 mmol/L 3.5-5.0 1482120383) CL (test code = 110 mmol/L 98-108 H 4130613043) CO2 TOTAL (test code = 23 mmol/L 23-31 4142309020) AGAP (test code = 2-16 6608365605) BUN (test code = 8 mg/dL 7-23 2814115496) GLUCOSE (test code = 98 mg/dL 70-110 0542245874) CREATININE (test code = 0.48 mg/dL 0.50-1.04 L 0245626629) CALCIUM (test code = 9.7 mg/dL 8.6-10.6 0267308824) eGFR (test code = mL/min/1.73m2 6960294733) MICKY (test code = MICKY) Association of [...] tests). Lab Interpretation Abnormal (test code = 95836-8) [facility] 13:19:15 Test Item Value Reference Range Interpretation Comments MAGNESIUM (test code = 3387893170) 1.4 mg/dL 1.7-2.4 L Lab Interpretation (test code = Abnormal 99263-3) [facility] 13:19:15 Test Item Value Reference Range Interpretation Comments PHOSPHORUS (test code = 4583060581) 4.3 mg/dL 2.5-5.0 Lab Interpretation (test code = Normal 78109-9) [id number] (ALB,T.PRO,BILI T,BU/BC,ALT,AST,ALK PHOS)2021-10-08 13:19:15 Test Item Value Reference Range Interpretation Comments TOTAL BILI (test code = 1657000247) 1.5 mg/dL 0.1-1.1 H BILI UNCON (test code = 5813907118) 1.3 mg/dL 0.1-1.1 H BILI CONJ (test code = 2603157939) 0.0 mg/dL 0.0-0.3 T PROTEIN (test code = 0985471170) 4.9 g/dL 6.3-8.2 L ALBUMIN (test code = 8197558949) 2.7 g/dL 3.5-5.0 L ALK PHOS (test code = 8114819548) 46 U/L 34-122 ALTv (test code = 1742-6) 13 U/L 5-35 AST(SGOT) (test code = 6884477114) 24 U/L 13-40 Lab Interpretation (test code = Abnormal 56056-2) [facility] 13:19:15 Test Item Value Reference Range Interpretation Comments MAGNESIUM (test code = 6688845870) 1.4 mg/dL 1.7-2.4 L Lab Interpretation (test code = Abnormal 46605-2) [facility] 13:19:15 Test Item Value Reference Range Interpretation Comments PHOSPHORUS (test code = 5709523957) 4.3 mg/dL 2.5-5.0 Lab Interpretation (test code = Normal 24262-7) [facility]14750[facility] (ALB,T.PRO,BILI T,BU/BC,ALT,AST,ALK PHOS)2021-10-08 13:19:15 Test Item Value Reference Range Interpretation Comments TOTAL BILI (test code = 4776112103) 1.5 mg/dL 0.1-1.1 H BILI UNCON (test code = 8895585915) 1.3 mg/dL 0.1-1.1 H BILI CONJ (test code = 5499041254) 0.0 mg/dL 0.0-0.3 T PROTEIN (test code = 7271530015) 4.9 g/dL 6.3-8.2 L ALBUMIN (test code = 4039024219) 2.7 g/dL 3.5-5.0 L ALK PHOS (test code = 0393258005) 46 U/L 34-122 ALTv (test code = 1742-6) 13 U/L 5-35 AST(SGOT) (test code = 1529836361) 24 U/L 13-40 Lab Interpretation (test code = Abnormal 46733-7) [facility] 13:19:15 Test Item Value Reference Range Interpretation Comments MAGNESIUM (test code = 8510907776) 1.4 mg/dL 1.7-2.4 L Lab Interpretation (test code = Abnormal 30667-8) [facility] 13:19:15 Test Item Value Reference Range Interpretation Comments PHOSPHORUS (test code = 2978691017) 4.3 mg/dL 2.5-5.0 Lab Interpretation (test code = Normal 64205-5) [facility] (68250[facility] (ALB,T.PRO,BILI T,BU/BC,ALT,AST,ALK PHOS)2021-10-08 13:19:15 Test Item Value Reference Range Interpretation Comments TOTAL BILI (test code = 9311210885) 1.5 mg/dL 0.1-1.1 H BILI UNCON (test code = 2743359096) 1.3 mg/dL 0.1-1.1 H BILI CONJ (test code = 6295756344) 0.0 mg/dL 0.0-0.3 T PROTEIN (test code = 6234091626) 4.9 g/dL 6.3-8.2 L ALBUMIN (test code = 0349334491) 2.7 g/dL 3.5-5.0 L ALK PHOS (test code = 0912973519) 46 U/L 34-122 ALTv (test code = 1742-6) 13 U/L 5-35 AST(SGOT) (test code = 0223046347) 24 U/L 13-40 Lab Interpretation (test code = Abnormal 87284-4) [facility] WITH [id number] 11:26:11 Test Item Value Reference Range Interpretation Comments WBC (test code = See_Comment [Automated 4890-2) message] The sy stem which generated this [...] RDW-SD (test code = 46.1 fL 39.0-49.9 95584-4) RDW-CV (test code = 15.2 % 12.0-15.5 788-0) PLT (test code = See_Comment L [Automated 777-3) message] The sy stem which generated this result transmitted reference range : 166 - 358 10*3/ ?L. The reference r susan was not used to interpret this result as normal/abnormal . MPV (test code = 11.0 fL 9.5-12.9 28479-1) IPF % (test code = 4.9 % 1.3-7.7 Platelet count 3419355832) measured by fluorescence method. NRBC/100 WBC (test See_Comment [Automat ed code = 9978499486) message] The system which generated this result transmitted reference range : 0.0 - 10.0 /100 WBCs. The refer ence range was not u sed to interpret th is result as normal/abnormal . NRBC x10^3 (test code <0.01 See_Comment [Auto mated = 9304794405) message] The s ystem which generated this result transmitted reference range : 10*3/?L. The reference range was not used to interpret this result as normal/abnormal . GRAN MAT (NEUT) % 84.1 % (test code = 770-8) IMM GRAN % (test code 0.60 % = 0240686476) LYMPH % (test code = 4.2 % 736-9) MONO % (test code = 11.0 % 5905-5) EOS % (test code = 0.0 % 713-8) BASO % (test code = 0.1 % 706-2) GRAN MAT x10^3(ANC) 6.05 10*3/uL 1.88-7.09 (test code = 2792189874) IMM GRAN x10^3 (test 0.04 10*3/uL 0.00-0.06 code = 0964764497) LYMPH x10^3 (test code 0.30 10*3/uL 1.32-3.29 L = 731-0) MONO x10^3 (test code 0.79 10*3/uL 0.33-0.92 = 742-7) EOS x10^3 (test code = <0.03 0.03-0.39 L 711-2) BASO x10^3 (test code <0.03 0.01-0.07 = 704-7) POLYCHROMASIA (test 2+ See_Comment [Automa ramana code = 38292-2) message] The system which generated this result transmitted reference range : 2+. The referen ce range was not u sed to interpret th is result as normal/abnormal . Lab Interpretation Abnormal (test code = 51655-6) [facility] WITH [id number] 11:26:11 Test Item Value Reference Range Interpretation [...] RDW-SD (test code = 46.1 fL 39.0-49.9 10376-7) RDW-CV (test code = 15.2 % 12.0-15.5 788-0) PLT (test code = See_Comment L [Automated 777-3) message] The sy stem which generated this result transmitted reference range : 166 - 358 10*3/ ?L. The reference r susan was not used to interpret this result as normal/abnormal . MPV (test code = 11.0 fL 9.5-12.9 90514-3) IPF % (test code = 4.9 % 1.3-7.7 Platelet count 8673673755) measured by fluorescence method. NRBC/100 WBC (test See_Comment [Automat ed code = 3350579739) message] The system which generated this result transmitted reference range : 0.0 - 10.0 /100 WBCs. The refer ence range was not u sed to interpret th is result as normal/abnormal . NRBC x10^3 (test code <0.01 See_Comment [Auto mated = 0469170612) message] The s ystem which generated this result transmitted reference range : 10*3/?L. The reference range was not used to interpret this result as normal/abnormal . GRAN MAT (NEUT) % 84.1 % (test code = 770-8) IMM GRAN % (test code 0.60 % = 7609888003) LYMPH % (test code = 4.2 % 736-9) MONO % (test code = 11.0 % 5905-5) EOS % (test code = 0.0 % 713-8) BASO % (test code = 0.1 % 706-2) GRAN MAT x10^3(ANC) 6.05 10*3/uL 1.88-7.09 (test code = 3181736273) IMM GRAN x10^3 (test 0.04 10*3/uL 0.00-0.06 code = 8774041032) LYMPH x10^3 (test code 0.30 10*3/uL 1.32-3.29 L = 731-0) MONO x10^3 (test code 0.79 10*3/uL 0.33-0.92 = 742-7) EOS x10^3 (test code = <0.03 0.03-0.39 L 711-2) BASO x10^3 (test code <0.03 0.01-0.07 = 704-7) POLYCHROMASIA (test 2+ See_Comment [Automa ramana code = 54606-2) message] The system which generated this result transmitted reference range : 2+. The referen ce range was not u sed to interpret th is result as normal/abnormal . Lab Interpretation Abnormal (test code = 14651-5) [facility] WITH [id number] 11:26:11 Test Item Value Reference Range Interpretation [...] RDW-SD (test code = 46.1 fL 39.0-49.9 63318-3) RDW-CV (test code = 15.2 % 12.0-15.5 788-0) PLT (test code = See_Comment L [Automated 777-3) message] The sy stem which generated this result transmitted reference range : 166 - 358 10*3/ ?L. The reference r susan was not used to interpret this result as normal/abnormal . MPV (test code = 11.0 fL 9.5-12.9 57316-7) IPF % (test code = 4.9 % 1.3-7.7 Platelet count 7553120361) measured by fluorescence method. NRBC/100 WBC (test See_Comment [Automat ed code = 4892976718) message] The system which generated this result transmitted reference range : 0.0 - 10.0 /100 WBCs. The refer ence range was not u sed to interpret th is result as normal/abnormal . NRBC x10^3 (test code <0.01 See_Comment [Auto mated = 4925536404) message] The s ystem which generated this result transmitted reference range : 10*3/?L. The reference range was not used to interpret this result as normal/abnormal . GRAN MAT (NEUT) % 84.1 % (test code = 770-8) IMM GRAN % (test code 0.60 % = 3828362893) LYMPH % (test code = 4.2 % 736-9) MONO % (test code = 11.0 % 5905-5) EOS % (test code = 0.0 % 713-8) BASO % (test code = 0.1 % 706-2) GRAN MAT x10^3(ANC) 6.05 10*3/uL 1.88-7.09 (test code = 0491332629) IMM GRAN x10^3 (test 0.04 10*3/uL 0.00-0.06 code = 6431452466) LYMPH x10^3 (test code 0.30 10*3/uL 1.32-3.29 L = 731-0) MONO x10^3 (test code 0.79 10*3/uL 0.33-0.92 = 742-7) EOS x10^3 (test code = <0.03 0.03-0.39 L 711-2) BASO x10^3 (test code <0.03 0.01-0.07 = 704-7) POLYCHROMASIA (test 2+ See_Comment [Automa ramana code = 65918-2) message] The system which generated this result transmitted reference range : 2+. The referen ce range was not u sed to interpret th is result as normal/abnormal . Lab Interpretation Abnormal (test code = 74538-9) [facility] / [id number] 11:04:07 Test Item Value Reference Range Interpretation Comments PROTIME PATIENT (test See_Comment L [Auto mated message] code = 5964-2) The system [employer] generated this result transmitted ref erence range: 12.0 - 1 4.7 Seconds. The reference range was not used to int erpret this result as normal/abnormal . INR (test code = 6301-6) Nor mal INR <1.1; Warfarin Therap eutic range 2.0 to 3. 0 or 2.5 to 3.5, dep ending upon the indica tions. Lab Interpretation (test Abnormal code = 28821-1) [facility] / [id number] 11:04:07 Test Item Value Reference Range Interpretation Comments PROTIME PATIENT (test See_Comment L [Auto mated message] code = 5964-2) The system [employer] generated this result transmitted ref erence range: 12.0 - 1 4.7 Seconds. The reference range was not used to int erpret this result as normal/abnormal . INR (test code = 6301-6) Nor mal INR <1.1; Warfarin Therap eutic range 2.0 to 3. 0 or 2.5 to 3.5, dep ending upon the indica tions. Lab Interpretation (test Abnormal code = 89822-8) [facility] / [id number] 11:04:07 Test Item Value Reference Range Interpretation Comments PROTIME PATIENT (test See_Comment L [Auto mated message] code = 5964-2) The system [employer] generated this result transmitted ref erence range: 12.0 - 1 4.7 Seconds. The reference range was not used to int erpret this result as normal/abnormal . INR (test code = 6301-6) Nor mal INR <1.1; Warfarin Therap eutic range 2.0 to 3. 0 or 2.5 to 3.5, dep ending upon the indica tions. Lab Interpretation (test Abnormal code = 58616-6) [facility] 10:56:58 Test Item Value Reference Range Interpretation Comments Fibrinogen (test code = 9459887851) 233 mg/dL 167-453 Lab Interpretation (test code = Normal 46923-9) [facility] 10:56:58 Test Item Value Reference Range Interpretation Comments Fibrinogen (test code = 8663471048) 233 mg/dL 167-453 Lab Interpretation (test code = Normal 33434-2) [facility] 10:56:58 Test Item Value Reference Range Interpretation Comments Fibrinogen (test code = 2144599168) 233 mg/dL 167-453 Lab Interpretation (test code = Normal 67229-1) [facility]ACT[facility] THRM[facility]AS [id number] 10:55:23 Test Item Value Reference Range Interpretation Comments APTT Patient (test code = See_Comment [ Automated message] 3173-2) The system [employer] h generated this result transmitted ref erence range: 26 - 36 Seconds. The re ference range was not u sed to interpret this result as normal/abnor mal. Lab Interpretation (test Normal code = 80139-4) [facility] [id number] 10:55:23 Test Item Value Reference Range Interpretation Comments APTT Patient (test code = See_Comment [ Automated message] 3173-2) The system [employer] h generated this result transmitted ref erence range: 26 - 36 Seconds. The re ference range was not u sed to interpret this result as normal/abnor mal. Lab Interpretation (test Normal code = 31231-1) [facility] [id number] 10:55:23 Test Item Value Reference Range Interpretation Comments APTT Patient (test code = See_Comment [ Automated message] 3173-2) The system [employer] h generated this result transmitted ref erence range: 26 - 36 Seconds. The re ference range was not u sed to interpret this result as normal/abnor mal. Lab Interpretation (test Normal code = 90384-3) [facility] + Lactic [id number] 10:32:44 Test Item Value Reference Range Interpretation Comments PH (test code = 2) 7.35-7.45 PCO2 (test code = See_Comment [Automate d 7151739626) message] The sy stem which generated this result transmitted reference range : 35 - 45 mmHg. The reference range was not used to interpret this result as normal/abnormal . PO2 (test code = See_Comment H [Automated 5363871231) message] The sy stem which generated this result transmitted reference range : 80 - 100 mmHg. The reference range was not used to interpret this result as normal/abnormal . HCO3 (test code = See_Comment [Automate d 8524226404) message] The sy stem which generated this result transmitted reference range : 22 - 26 mEq/L. The reference range was not used to interpret this result as normal/abnormal . BE (test code = See_Comment [Automated 7514630161) message] The sy stem which generated this result transmitted reference range : -3.0 - 3.0 mEq/ L. The reference r susan was not used to interpret this result as normal/abnormal . THB (test code = 7.7 g/dL 12.0-16.0 LL 9627433836) %O2HB (test code = 97.4 % 94.0-99.0 7656090833) %COHB ART (test code = 1.4 % 0.0-1.5 0022741773) %METHB ART (test code = 0.3 % 0.4-1.5 L 8698256358) VOL%O2 ART (test code = 11.0 % 15.0-23.0 L 9906205180) NA (test code = 132 mmol/L 135-145 L 0049844525) K+ (test code = 3.9 mmol/L 3.5-5.0 4198066625) AC CA IONZ (test code = 5.40 mg/dL 4.50-5.30 H 7332451870) GLUCOSE (test code = 98 mg/dL 70-110 2582327066) LACTIC ACID (test code 1.16 mmol/L 0.50-2.20 = 7047650420) Lab Interpretation Abnormal (test code = 63254-8) [facility] + Lactic [id number] 10:32:44 Test Item Value Reference Range Interpretation Comments PH (test code = 2) 7.35-7.45 PCO2 (test code = See_Comment [Automate d 1871334408) message] The sy stem which generated this result transmitted reference range : 35 - 45 mmHg. The reference range was not used to interpret this result as normal/abnormal . PO2 (test code = See_Comment H [Automated 8646170192) message] The sy stem which generated this result transmitted reference range : 80 - 100 mmHg. The reference range was not used to interpret this result as normal/abnormal . HCO3 (test code = See_Comment [Automate d 0904458065) message] The sy stem which generated this result transmitted reference range : 22 - 26 mEq/L. The reference range was not used to interpret this result as normal/abnormal . BE (test code = See_Comment [Automated 5356246041) message] The sy stem which generated this result transmitted reference range : -3.0 - 3.0 mEq/ L. The reference r susan was not used to interpret this result as normal/abnormal . THB (test code = 7.7 g/dL 12.0-16.0 LL 1844022434) %O2HB (test code = 97.4 % 94.0-99.0 2227400589) %COHB ART (test code = 1.4 % 0.0-1.5 1942787148) %METHB ART (test code = 0.3 % 0.4-1.5 L 7012083996) VOL%O2 ART (test code = 11.0 % 15.0-23.0 L 2675500833) NA (test code = 132 mmol/L 135-145 L 7498739164) K+ (test code = 3.9 mmol/L 3.5-5.0 8862344122) AC CA IONZ (test code = 5.40 mg/dL 4.50-5.30 H 5146457017) GLUCOSE (test code = 98 mg/dL 70-110 7683576865) LACTIC ACID (test code 1.16 mmol/L 0.50-2.20 = 0559474393) Lab Interpretation Abnormal (test code = 40371-7) [facility] + Lactic [id number] 10:32:44 Test Item Value Reference Range Interpretation Comments PH (test code = 2) 7.35-7.45 PCO2 (test code = See_Comment [Automate d 0667983124) message] The sy stem which generated this result transmitted reference range : 35 - 45 mmHg. The reference range was not used to interpret this result as normal/abnormal . PO2 (test code = See_Comment H [Automated 4174107770) message] The sy stem which generated this result transmitted reference range : 80 - 100 mmHg. The reference range was not used to interpret this result as normal/abnormal . HCO3 (test code = See_Comment [Automate d 6220143908) message] The sy stem which generated this result transmitted reference range : 22 - 26 mEq/L. The reference range was not used to interpret this result as normal/abnormal . BE (test code = See_Comment [Automated 9114089271) message] The sy stem which generated this result transmitted reference range : -3.0 - 3.0 mEq/ L. The reference r susan was not used to interpret this result as normal/abnormal . THB (test code = 7.7 g/dL 12.0-16.0 LL 7998182813) %O2HB (test code = 97.4 % 94.0-99.0 2518836130) %COHB ART (test code = 1.4 % 0.0-1.5 9194619858) %METHB ART (test code = 0.3 % 0.4-1.5 L 4532070425) VOL%O2 ART (test code = 11.0 % 15.0-23.0 L 2392822845) NA (test code = 132 mmol/L 135-145 L 0349051590) K+ (test code = 3.9 mmol/L 3.5-5.0 4697288135) AC CA IONZ (test code = 5.40 mg/dL 4.50-5.30 H 6077567743) GLUCOSE (test code = 98 mg/dL 70-110 8488424908) LACTIC ACID (test code 1.16 mmol/L 0.50-2.20 = 1207742503) Lab Interpretation Abnormal (test code = 52053-1) [facility] / [id number] 10:25:01 Test Item Value Reference Range Interpretation Comments PROTIME PATIENT (test See_Comment L [Auto mated message] code = 5964-2) The system [employer] generated this result transmitted ref erence range: 12.0 - 1 4.7 Seconds. The reference range was not used to int erpret this result as normal/abnormal . INR (test code = 6301-6) Nor mal INR <1.1; Warfarin Therap eutic range 2.0 to 3. 0 or 2.5 to 3.5, dep ending upon the indica tions. Lab Interpretation (test Abnormal code = 65628-8) [facility] Time / [id number] 10:25:01 Test Item Value Reference Range Interpretation Comments PROTIME PATIENT (test See_Comment L [Auto mated message] code = 5964-2) The system [employer] generated this result transmitted ref erence range: 12.0 - 1 4.7 Seconds. The reference range was not used to int erpret this result as normal/abnormal . INR (test code = 6301-6) Nor mal INR <1.1; Warfarin Therap eutic range 2.0 to 3. 0 or 2.5 to 3.5, dep ending upon the indica tions. Lab Interpretation (test Abnormal code = 66193-5) [facility] Time / [id number] 10:25:01 Test Item Value Reference Range Interpretation Comments PROTIME PATIENT (test See_Comment L [Auto mated message] code = 5964-2) The system [employer] generated this result transmitted ref erence range: 12.0 - 1 4.7 Seconds. The reference range was not used to int erpret this result as normal/abnormal . INR (test code = 6301-6) Nor mal INR <1.1; Warfarin Therap eutic range 2.0 to 3. 0 or 2.5 to 3.5, dep ending upon the indica tions. Lab Interpretation (test Abnormal code = 49634-1) [facility] Paso[facility] (in units)~2021-10-08 09:48:16 Test Item Value Reference Range Interpretation Comments Unit Blood Type (test A Pos code = 4410) ISBT Blood Type Code (test code = 430851) Unit Number (test code [id number] = 4411) Blood Expiration Date & Time (test code = 019816) Status Information Issued (test code = 4412) Product Identification FFP (test code = 4413) Product Code (test [id number] Performed at [facility] code = 4414) Laboratory Services - [facility] Blood [address] [address]Avhi Free: [phone] A No. [id number] [facility] Paso[facility] (in units)~2021-10-08 09:48:16 Test Item Value Reference Range Interpretation Comments Unit Blood Type (test A Pos code = 4410) ISBT Blood Type Code (test code = 549032) Unit Number (test code [id number] = 4411) Blood Expiration Date & Time (test code = 666634) Status Information Issued (test code = 4412) Product Identification FFP (test code = 4413) Product Code (test [id number] Performed at [facility] code = 4414) Laboratory Services - [facility] Blood [address] [place] [address]Ulne Free: [phone] A No. [id number] [facility] Paso[facility] Plasma (in units)~2021-10-08 09:48:16 Test Item Value Reference Range Interpretation Comments Unit Blood Type (test A Pos code = 4410) ISBT Blood Type Code (test code = 259007) Unit Number (test code [id number] = 4411) Blood Expiration Date & Time (test code = 485206) Status Information Issued (test code = 4412) Product Identification FFP (test code = 4413) Product Code (test [id number] Performed at [facility] code = 4414) Laboratory Services - [facility] Blood [address] [address]Aone Free: [phone] A No. [id number] [facility] Packed RBC (in units)2021-10-08 09:47:11 Test Item Value Reference Range Interpretation Comments Cross Match Result Compatible (test code = 4409) ISBT Blood Type Code (test code = 508672) Unit Blood Type (test A Pos code = 4410) Unit Number (test [id number] code = 4411) Blood Expiration Date & Time (test code = 850172) Status Information Issued (test code = 4412) Product Red Blood Cells Identification (test code = 4413) Product Code (test N3573V93 Performed at [facility] code = 4414) Laboratory Services - [facility] Blood [address] [address]Pasi Free: [phone] A No. [id number] [facility] Packed RBC (in units)2021-10-08 09:47:11 Test Item Value Reference Range Interpretation Comments Cross Match Result Compatible (test code = 4409) ISBT Blood Type Code (test code = 793667) Unit Blood Type (test A Pos code = 4410) Unit Number (test [id number] code = 4411) Blood Expiration Date & Time (test code = 014869) Status Information Issued (test code = 4412) Product Red Blood Cells Identification (test code = 4413) Product Code (test C9687Q48 Performed at [facility] code = 4414) Laboratory Services - [facility] Blood [address] [address]Nowc Free: [phone] A No. [id number] [facility] Packed RBC (in units)2021-10-08 09:47:11 Test Item Value Reference Range Interpretation Comments Cross Match Result Compatible (test code = 4409) ISBT Blood Type Code (test code = 392091) Unit Blood Type (test A Pos code = 4410) Unit Number (test [id number] code = 4411) Blood Expiration Date & Time (test code = 261914) Status Information Issued (test code = 4412) Product Red Blood Cells Identification (test code = 4413) Product Code (test L7153N26 Performed at [facility] code = 4414) Laboratory Services - [facility] [address] [place] [address]Gvso Free: [phone] A No. [id number] [facility] PasoFIBRINOGEN2022-06-24 08:38:17 FibrinogenComment: PT/INR failed. Fib autoverified. Need new order. Spoke to MCKENZIE Mireles/Dr. Streeter. This is a corrected result. ?Previous result was 165 mg/dL on 10/08/[address] [place] [address] [facility] [id number] 08:38:17FibrinogenComment: PT/INR failed. Fib autoverified. Need new order. Spoke to MCKENZIE Mireles/Dr. Streeter. This is a corrected result. ?Previous result was 165 mg/dL on 10/08/[address] [place] [address] [facility] SERVICESUniversity [facility] PasoFIBRINOGEN2022-06-24 08:38:17FibrinogenComment: PT/INR failed. Fib autoverified. Need new order. Spoke to MCKENZIE Mireles/Dr. Streeter. This is a corrected result. ?Previous result was 165 mg/dL on 10/08/[address] [place] [address] [facility] SERVICESUniversity [facility] of [facility] PasoCBC WITHOUT [id number] 08:34:10 Test Item Value Reference Range Interpretation Comments WBC (test code = See_Comment [Automated message] 6690-2) The system [employer] generated this result transmitted ref erence range: 4.30 - 1 1.10 10*3/?L. The reference range was not used to int erpret this result as normal/abnormal . RBC (test code = 789-8) See_Comment L [Au tomated message] The system [employer] generated this result transmitted ref erence range: [...] See_Comment L [Au tomated message] The system [employer] generated this result transmitted ref erence range: 166 - 35 8 10*3/?L. The reference range was not used to int erpret this result as normal/abnormal . MPV (test code = 11.4 fL 9.5-12.9 68056-9) RDW-CV (test code = 14.8 % 12.0-15.5 788-0) RDW-SD (test code = 47.3 fL 39.0-49.9 53598-3) NRBC x10^3 (test code = <0.01 See_Comment [Au tomated message] 4653555606) The system [employer] generated this result transmitted ref erence range: 10*3/?L. The reference range was not used to int erpret this result as normal/abnormal . NRBC/100 WBC (test code See_Comment [Au tomated message] = 2445659138) The system [employer] generated this result transmitted ref erence range: 0.0 - 10 .0 /100 WBCs. The reference range was not used to int erpret this result as normal/abnormal . IPF % (test code = 5.9 % 1.3-7.7 Platelet count [id number]) measured by fluorescence me thod. Lab Interpretation Abnormal (test code = 21852-8) [facility] WITHOUT [id number] 08:34:10 Test Item Value Reference Range Interpretation Comments WBC (test code = See_Comment [Automated message] 6690-2) The system [employer] generated this result transmitted ref erence range: 4.30 - 1 1.10 10*3/?L. The reference range was not used to int erpret this result as normal/abnormal . RBC (test code = 789-8) See_Comment L [Au tomated message] The system [employer] generated this result transmitted ref erence range: [...] See_Comment L [Au tomated message] The system [employer] generated this result transmitted ref erence range: 166 - 35 8 10*3/?L. The reference range was not used to int erpret this result as normal/abnormal . MPV (test code = 11.4 fL 9.5-12.9 42284-7) RDW-CV (test code = 14.8 % 12.0-15.5 788-0) RDW-SD (test code = 47.3 fL 39.0-49.9 14944-3) NRBC x10^3 (test code = <0.01 See_Comment [Au tomated message] 8301174480) The system [employer] generated this result transmitted ref erence range: 10*3/?L. The reference range was not used to int erpret this result as normal/abnormal . NRBC/100 WBC (test code See_Comment [Au tomated message] = 8817340114) The system [facility] generated this result transmitted ref erence range: 0.0 - 10 .0 /100 WBCs. The reference range was not used to int erpret this result as normal/abnormal . IPF % (test code = 5.9 % 1.3-7.7 Platelet count [id number]) measured by fluorescence me thod. Lab Interpretation Abnormal (test code = 86347-0) [facility] WITHOUT [id number] 08:34:10 Test Item Value Reference Range Interpretation Comments WBC (test code = See_Comment [Automated message] 6690-2) The system [employer] generated this result transmitted ref erence range: 4.30 - 1 1.10 10*3/?L. The reference range was not used to int erpret this result as normal/abnormal . RBC (test code = 789-8) See_Comment L [Au tomated message] The system [employer] generated this result transmitted ref erence range: [...] See_Comment L [Au tomated message] The system [employer] generated this result transmitted ref erence range: 166 - 35 8 10*3/?L. The reference range was not used to int erpret this result as normal/abnormal . MPV (test code = 11.4 fL 9.5-12.9 21206-9) RDW-CV (test code = 14.8 % 12.0-15.5 788-0) RDW-SD (test code = 47.3 fL 39.0-49.9 32315-6) NRBC x10^3 (test code = <0.01 See_Comment [Au tomated message] 1813103838) The system [employer] generated this result transmitted ref erence range: 10*3/?L. The reference range was not used to int erpret this result as normal/abnormal . NRBC/100 WBC (test code See_Comment [Au tomated message] = 2525068514) The system [facility] generated this result transmitted ref erence range: 0.0 - 10 .0 /100 WBCs. The reference range was not used to int erpret this result as normal/abnormal . IPF % (test code = 5.9 % 1.3-7.7 Platelet count 7609269594) measured by fluorescence me thod. Lab Interpretation Abnormal (test code = 90416-0) [facility] Cryoprecipitate (in units)~2021-10-08 07:24:24 Test Item Value Reference Range Interpretation Comments Unit Blood Type (test A code = 4410) ISBT Blood Type Code A000 (test code = 553804) Unit Number (test [id number] code = 4411) Blood Expiration Date & Time (test code = 149284) Status Information Issued (test code = 4412) Product Cryoprecipitate Identification (test code = 4413) Product Code (test [id number] Performed at [facility] code = 4414) Laboratory Services - [facility] Blood [address] [address]Ckuu Free: [phone] A No. [id number] [facility] Cryoprecipitate (in units)~2021-10-08 07:24:24 Test Item Value Reference Range Interpretation Comments Unit Blood Type (test A code = 4410) ISBT Blood Type Code A000 (test code = 363460) Unit Number (test [id number] code = 4411) Blood Expiration Date & Time (test code = 564006) Status Information Issued (test code = 4412) Product Cryoprecipitate Identification (test code = 4413) Product Code (test K2093T15 Performed at [facility] code = 4414) Laboratory Services - [facility] Blood [address] [address]Pngz Free: [phone] A No. [id number] [facility] Cryoprecipitate (in units)~2021-10-08 07:24:24 Test Item Value Reference Range Interpretation Comments Unit Blood Type (test A code = 4410) ISBT Blood Type Code A000 (test code = 166711) Unit Number (test [id number] code = 4411) Blood Expiration Date & Time (test code = 590978) Status Information Issued (test code = 4412) Product Cryoprecipitate Identification (test code = 4413) Product Code (test A5833C49 Performed at [facility] code = 4414) Laboratory Services - [facility] Blood [address] [place] [address]Qxyj Free: [phone] A No. [id number] [facility] METABOLIC PANEL (NA, K, CL, CO2, GLUCOSE, BUN, CREATININE, CA)2021-10-08 07:14:23 Test Item Value Reference Range Interpretation Comments NA (test code = 134 mmol/L 135-145 L 8167197263) K (test code = 4.6 mmol/L 3.5-5.0 4385816664) CL (test code = 109 mmol/L 98-108 H 9251907384) CO2 TOTAL (test code = 21 mmol/L 23-31 L 6555326762) AGAP (test code = 2-16 3605345937) BUN (test code = 9 mg/dL 7-23 8428451369) GLUCOSE (test code = 206 mg/dL 70-110 H 6079513059) CREATININE (test code = 0.61 mg/dL 0.50-1.04 2486474548) CALCIUM (test code = 7.5 mg/dL 8.6-10.6 L 8621059060) eGFR (test code = mL/min/1.73m2 2508702583) MICKY (test code = MICKY) Association of [...] tests). Lab Interpretation Abnormal (test code = 86129-9) [facility] (NA, K, CL, CO2, GLUCOSE, BUN, CREATININE, CA)2021-10-08 07:14:23 Test Item Value Reference Range Interpretation Comments NA (test code = 134 mmol/L 135-145 L 9928559792) K (test code = 4.6 mmol/L 3.5-5.0 2014753853) CL (test code = 109 mmol/L 98-108 H 2989190292) CO2 TOTAL (test code = 21 mmol/L 23-31 L 8524979667) AGAP (test code = 2-16 8692507580) BUN (test code = 9 mg/dL 7-23 8202852868) GLUCOSE (test code = 206 mg/dL 70-110 H 9394460108) CREATININE (test code = 0.61 mg/dL 0.50-1.04 5286724755) CALCIUM (test code = 7.5 mg/dL 8.6-10.6 L 1318207296) eGFR (test code = mL/min/1.73m2 7321105053) MICKY (test code = MICKY) Association of [...] tests). Lab Interpretation Abnormal (test code = 08946-9) [facility] METABOLIC PANEL (NA, K, CL, CO2, GLUCOSE, BUN, CREATININE, CA)2021-10-08 07:14:23 Test Item Value Reference Range Interpretation Comments NA (test code = 134 mmol/L 135-145 L 7167603441) K (test code = 4.6 mmol/L 3.5-5.0 8831835512) CL (test code = 109 mmol/L 98-108 H 3792069891) CO2 TOTAL (test code = 21 mmol/L 23-31 L 0785584039) AGAP (test code = 2-16 1569821914) BUN (test code = 9 mg/dL 7-23 7904529567) GLUCOSE (test code = 206 mg/dL 70-110 H 9242663219) CREATININE (test code = 0.61 mg/dL 0.50-1.04 6382372977) CALCIUM (test code = 7.5 mg/dL 8.6-10.6 L 8182863842) eGFR (test code = mL/min/1.73m2 8373712298) MICKY (test code = MICKY) Association of [...] tests). Lab Interpretation Abnormal (test code = 27757-3) [facility]2022-06-24 06:46:57 Test Item Value Reference Range Interpretation Comments Fibrinogen (test code = 5759299240) 174 mg/dL 167-453 Lab Interpretation (test code = Normal 38196-0) [facility]2022-06-24 06:46:57 Test Item Value Reference Range Interpretation Comments Fibrinogen (test code = 1186005927) 174 mg/dL 167-453 Lab Interpretation (test code = Normal 10379-4) [facility]2022-06-24 06:46:57 Test Item Value Reference Range Interpretation Comments Fibrinogen (test code = 1539681748) 174 mg/dL 167-453 Lab Interpretation (test code = Normal 67595-8) [facility]2022-06-24 06:45:07 Test Item Value Reference Range Interpretation Comments Fibrinogen (test code = 4807365541) 196 mg/dL 167-453 Lab Interpretation (test code = Normal 16719-4) [facility]2022-06-24 06:45:07 Test Item Value Reference Range Interpretation Comments Fibrinogen (test code = 1900431961) 196 mg/dL 167-453 Lab Interpretation (test code = Normal 47354-1) [facility]2022-06-24 06:45:07 Test Item Value Reference Range Interpretation Comments Fibrinogen (test code = 2485772415) 196 mg/dL 167-453 Lab Interpretation (test code = Normal 60114-1) [facility] Platelets (in units)~2021-10-08 06:44:36 Test Item Value Reference Range Interpretation Comments Unit Blood Type (test A Pos code = 4410) ISBT Blood Type Code (test code = 194391) Unit Number (test code [id number] = 4411) Blood Expiration Date & Time (test code = 757704) Status Information Issued (test code = 4412) Product Identification Platelets (test code = 4413) Product Code (test [id number] Performed at [facility] code = 4414) Laboratory Services [facility] Blood [address] [address]Ryee Free: [phone] A No. [id number] [facility] Platelets (in units)~2021-10-08 06:44:36 Test Item Value Reference Range Interpretation Comments Unit Blood Type (test A Pos code = 4410) ISBT Blood Type Code (test code = 311528) Unit Number (test code [id number] = 4411) Blood Expiration Date & Time (test code = 980449) Status Information Issued (test code = 4412) Product Identification Platelets (test code = 4413) Product Code (test M3614RY4 Performed at [facility] code = 4414) Laboratory Services - [facility] Blood [address] [address]Nimi Free: [phone] A No. [id number] [facility]2021-10-08 06:44:36 Test Item Value Reference Range Interpretation Comments Unit Blood Type (test A Pos code = 4410) ISBT Blood Type Code (test code = 915138) Unit Number (test code [id number] = 4411) Blood Expiration Date & Time (test code = 205495) Status Information Issued (test code = 4412) Product Identification Platelets (test code = 4413) Product Code (test D8807XX5 Performed at [facility] code = 4414) Laboratory Services - [facility] Blood [address] [place], [place] [address]veston[place]é [address]Oxze Free: [phone] A No. [id number] [facility] [id number] 06:44:01 Test Item Value Reference Range Interpretation Comments APTT Patient (test code = See_Comment [ Automated message] 3173-2) The system [employer] generated this result transmitted ref erence range: 26 - 36 Seconds. The re ference range was not u sed to interpret this result as normal/abnor mal. Lab Interpretation (test Normal code = 69950-3) [facility] Time / [id number] 06:44:01 Test Item Value Reference Range Interpretation Comments PROTIME PATIENT (test See_Comment H [Auto mated message] code = 5964-2) The system [employer] generated this result transmitted ref erence range: 10.1 - 1 2.6 Seconds. The reference range was not used to int erpret this result as normal/abnormal . INR (test code = 6301-6) Nor mal INR <1.1; Warfarin Therap eutic range 2.0 to 3. 0 or 2.5 to 3.5, dep ending upon the indica tions. Lab Interpretation (test Abnormal code = 15242-8) [facility] [id number] 06:44:01 Test Item Value Reference Range Interpretation Comments APTT Patient (test code = See_Comment [ Automated message] 3173-2) The system [employer] generated this result transmitted ref erence range: 26 - 36 Seconds. The re ference range was not u sed to interpret this result as normal/abnor mal. Lab Interpretation (test Normal code = 60830-2) [facility] / [id number] 06:44:01 Test Item Value Reference Range Interpretation Comments PROTIME PATIENT (test See_Comment H [Auto mated message] code = 5964-2) The system [employer] generated this result transmitted ref erence range: 10.1 - 1 2.6 Seconds. The reference range was not used to int erpret this result as normal/abnormal . INR (test code = 6301-6) Nor mal INR <1.1; Warfarin Therap eutic range 2.0 to 3. 0 or 2.5 to 3.5, dep ending upon the indica tions. Lab Interpretation (test Abnormal code = 00481-2) [facility] [id number] 06:44:01 Test Item Value Reference Range Interpretation Comments APTT Patient (test code = See_Comment [ Automated message] 3173-2) The system [facility] [employer] generated this result transmitted ref erence range: 26 - 36 Seconds. The re ference range was not u sed to interpret this result as normal/abnor mal. Lab Interpretation (test Normal code = 25543-4) [facility] Time / [id number] 06:44:01 Test Item Value Reference Range Interpretation Comments PROTIME PATIENT (test See_Comment H [Auto mated message] code = 5964-2) The system [employer] generated this result transmitted ref erence range: 10.1 - 1 2.6 Seconds. The reference range was not used to int erpret this result as normal/abnormal . INR (test code = 6301-6) Nor mal INR <1.1; Warfarin Therap eutic range 2.0 to 3. 0 or 2.5 to 3.5, dep ending upon the indica tions. Lab Interpretation (test Abnormal code = 10638-0) [facility] WITH [id number] 06:33:16 Test Item Value Reference Range Interpretation [...] (test code = 51.9 fL 39.0-49.9 H 96673-9) RDW-CV (test code = 16.2 % 12.0-15.5 H 788-0) PLT (test code = See_Comment [Automated 777-3) message] The system which generated this result transmit ramana reference range : 166 - 358 10*3/ ?L. The reference range was not u sed to interpret th is result as normal/abnormal . MPV (test code = 11.3 fL 9.5-12.9 12016-7) NRBC/100 WBC (test See_Comment [Automat ed code = 3968790143) message] The system which generated this result transmit ramana reference range : 0.0 - 10.0 /100 WBCs. The reference range was not used to interpret this result as normal/abnormal . NRBC x10^3 (test code <0.01 See_Comment [Auto mated = 6854091414) message] The system which generated this result transmit ramana reference range : 10*3/?L. The reference range was not used to interpret this result as normal/abnormal . GRAN MAT (NEUT) % 86.0 % (test code = 770-8) IMM GRAN % (test code 0.80 % = 8692098257) LYMPH % (test code = 3.8 % 736-9) MONO % (test code = 9.3 % 5905-5) EOS % (test code = 0.0 % 713-8) BASO % (test code = 0.1 % 706-2) GRAN MAT x10^3(ANC) 11.38 10*3/uL 1.88-7.09 H (test code = 0640080761) IMM GRAN x10^3 (test 0.10 10*3/uL 0.00-0.06 H code = 8175249686) LYMPH x10^3 (test code 0.50 10*3/uL 1.32-3.29 L = 731-0) MONO x10^3 (test code 1.23 10*3/uL 0.33-0.92 H = 742-7) EOS x10^3 (test code = <0.03 0.03-0.39 L 711-2) BASO x10^3 (test code <0.03 0.01-0.07 = 704-7) Lab Interpretation Abnormal (test code = 03646-7) [facility] WITH [id number] 06:33:16 Test Item Value Reference Range Interpretation [...] (test code = 51.9 fL 39.0-49.9 H 40932-3) RDW-CV (test code = 16.2 % 12.0-15.5 H 788-0) PLT (test code = See_Comment [Automated 777-3) message] The system which generated this result transmit ramana reference range : 166 - 358 10*3/ ?L. The reference range was not u sed to interpret th is result as normal/abnormal . MPV (test code = 11.3 fL 9.5-12.9 22937-5) NRBC/100 WBC (test See_Comment [Automat ed code = 4250217060) message] The system which generated this result transmit ramana reference range : 0.0 - 10.0 /100 WBCs. The reference range was not used to interpret this result as normal/abnormal . NRBC x10^3 (test code <0.01 See_Comment [Auto mated = 8414605489) message] The system which generated this result transmit ramana reference range : 10*3/?L. The reference range was not used to interpret this result as normal/abnormal . GRAN MAT (NEUT) % 86.0 % (test code = 770-8) IMM GRAN % (test code 0.80 % = 1581823346) LYMPH % (test code = 3.8 % 736-9) MONO % (test code = 9.3 % 5905-5) EOS % (test code = 0.0 % 713-8) BASO % (test code = 0.1 % 706-2) GRAN MAT x10^3(ANC) 11.38 10*3/uL 1.88-7.09 H (test code = 7596951417) IMM GRAN x10^3 (test 0.10 10*3/uL 0.00-0.06 H code = 0046224749) LYMPH x10^3 (test code 0.50 10*3/uL 1.32-3.29 L = 731-0) MONO x10^3 (test code 1.23 10*3/uL 0.33-0.92 H = 742-7) EOS x10^3 (test code = <0.03 0.03-0.39 L 711-2) BASO x10^3 (test code <0.03 0.01-0.07 = 704-7) Lab Interpretation Abnormal (test code = 24965-6) [facility] WITH [id number] 06:33:16 Test Item Value Reference Range Interpretation [...] (test code = 51.9 fL 39.0-49.9 H 88172-5) RDW-CV (test code = 16.2 % 12.0-15.5 H 788-0) PLT (test code = See_Comment [Automated 777-3) message] The system which generated this result transmit ramana reference range : 166 - 358 10*3/ ?L. The reference range was not u sed to interpret th is result as normal/abnormal . MPV (test code = 11.3 fL 9.5-12.9 39310-2) NRBC/100 WBC (test See_Comment [Automat ed code = 9663453860) message] The system which generated this result transmit ramana reference range : 0.0 - 10.0 /100 WBCs. The reference range was not used to interpret this result as normal/abnormal . NRBC x10^3 (test code <0.01 See_Comment [Auto mated = 4283748216) message] The system which generated this result transmit ramana reference range : 10*3/?L. The reference range was not used to interpret this result as normal/abnormal . GRAN MAT (NEUT) % 86.0 % (test code = 770-8) IMM GRAN % (test code 0.80 % = 3914244900) LYMPH % (test code = 3.8 % 736-9) MONO % (test code = 9.3 % 5905-5) EOS % (test code = 0.0 % 713-8) BASO % (test code = 0.1 % 706-2) GRAN MAT x10^3(ANC) 11.38 10*3/uL 1.88-7.09 H (test code = 8703730184) IMM GRAN x10^3 (test 0.10 10*3/uL 0.00-0.06 H code = 7276370926) LYMPH x10^3 (test code 0.50 10*3/uL 1.32-3.29 L = 731-0) MONO x10^3 (test code 1.23 10*3/uL 0.33-0.92 H = 742-7) EOS x10^3 (test code = <0.03 0.03-0.39 L 711-2) BASO x10^3 (test code <0.03 0.01-0.07 = 704-7) Lab Interpretation Abnormal (test code = 29931-6) [facility] LACTIC [id number] 06:25:43 Test Item Value Reference Range Interpretation Comments PH (test code = 7.32-7.42 L 8396088388) PCO2 SHAY (test code = See_Comment [Auto mated 3912818016) message] The sy stem which generated this result transmitted reference range : 41 - 51 mmHg. The reference range was not used to interpret this result as normal/abnormal . PO2 SHAY (test code = See_Comment L [Autom ated 0835866164) message] The sy stem which generated this result transmitted reference range : 25 - 40 mmHg. The reference range was not used to interpret this result as normal/abnormal . HCO3 SHAY (test code = See_Comment L [Auto mated 4226304027) message] The sy stem which generated this result transmitted reference range : 24 - 28 mEq/L. The reference range was not used to interpret this result as normal/abnormal . AC VBE(BEAKER) (test mEq/L code = 5890980559) THB SHAY (test code = 6.1 g/dL 12.0-16.0 LL 9119919359) %O2HB SHAY (test code = 26.6 % 52.0-63.0 L 0369332131) %COHB SHAY (test code = 1.0 % 0.0-1.5 6426220803) %METHB SHAY (test code = 0.9 % 0.4-1.5 4090827626) VOL%O2 SHAY (test code = 2.3 % 6.0-12.0 L 3039401849) NA (test code = 130 mmol/L 135-145 L 7160005092) K+ (test code = 4.3 mmol/L 3.5-5.0 1399192713) AC CA IONZ (test code = 4.60 mg/dL 4.50-5.30 4598321461) GLUCOSE (test code = 239 mg/dL 70-110 H 8722017584) LACTIC ACID (test code 3.16 mmol/L 0.50-2.20 H = 6533257503) Lab Interpretation Abnormal (test code = 86510-6) [facility]ACTIC [id number] 06:25:43 Test Item Value Reference Range Interpretation Comments PH (test code = 7.32-7.42 L 5253266819) PCO2 SHAY (test code = See_Comment [Auto mated 4377120371) message] The sy stem which generated this result transmitted reference range : 41 - 51 mmHg. The reference range was not used to interpret this result as normal/abnormal . PO2 SHAY (test code = See_Comment L [Autom ated 9850922661) message] The sy stem which generated this result transmitted reference range : 25 - 40 mmHg. The reference range was not used to interpret this result as normal/abnormal . HCO3 SHAY (test code = See_Comment L [Auto mated 8439444631) message] The sy stem which generated this result transmitted reference range : 24 - 28 mEq/L. The reference range was not used to interpret this result as normal/abnormal . AC VBE(BEAKER) (test mEq/L code = 1584482659) THB SHAY (test code = 6.1 g/dL 12.0-16.0 LL 0751555260) %O2HB SHAY (test code = 26.6 % 52.0-63.0 L 2060228701) %COHB SHAY (test code = 1.0 % 0.0-1.5 1761892627) %METHB SHAY (test code = 0.9 % 0.4-1.5 9370794020) VOL%O2 SHAY (test code = 2.3 % 6.0-12.0 L 1488001400) NA (test code = 130 mmol/L 135-145 L 5467576007) K+ (test code = 4.3 mmol/L 3.5-5.0 1407347298) AC CA IONZ (test code = 4.60 mg/dL 4.50-5.30 4534715495) GLUCOSE (test code = 239 mg/dL 70-110 H 6119061357) LACTIC ACID (test code 3.16 mmol/L 0.50-2.20 H = 3382311661) Lab Interpretation Abnormal (test code = 82088-1) [facility] + LACTIC [id number] 06:25:43 Test Item Value Reference Range Interpretation Comments PH (test code = 7.32-7.42 L 0590595665) PCO2 SHAY (test code = See_Comment [Auto mated 1772648752) message] The sy stem which generated this result transmitted reference range : 41 - 51 mmHg. The reference range was not used to interpret this result as normal/abnormal . PO2 SHAY (test code = See_Comment L [Autom ated 0081224850) message] The sy stem which generated this result transmitted reference range : 25 - 40 mmHg. The reference range was not used to interpret this result as normal/abnormal . HCO3 SHAY (test code = See_Comment L [Auto mated 2376180713) message] The sy stem which generated this result transmitted reference range : 24 - 28 mEq/L. The reference range was not used to interpret this result as normal/abnormal . AC VBE(BEAKER) (test mEq/L code = 9934542380) THB SHAY (test code = 6.1 g/dL 12.0-16.0 LL 4310743918) %O2HB SHAY (test code = 26.6 % 52.0-63.0 L 0770083426) %COHB SHAY (test code = 1.0 % 0.0-1.5 9452491095) %METHB SHAY (test code = 0.9 % 0.4-1.5 0722663617) VOL%O2 SHAY (test code = 2.3 % 6.0-12.0 L 9715945874) NA (test code = 130 mmol/L 135-145 L 9872923510) K+ (test code = 4.3 mmol/L 3.5-5.0 8765531092) AC CA IONZ (test code = 4.60 mg/dL 4.50-5.30 7471115017) GLUCOSE (test code = 239 mg/dL 70-110 H 4638955151) LACTIC ACID (test code 3.16 mmol/L 0.50-2.20 H = 5860735073) Lab Interpretation Abnormal (test code = 75624-6) [facility] METABOLIC PANEL (NA, K, CL, CO2, GLUCOSE, BUN, CREATININE, CA)2021-10-08 05:38:11 Test Item Value Reference Range Interpretation Comments NA (test code = 132 mmol/L 135-145 L 2243150427) K (test code = 4.7 mmol/L 3.5-5.0 8305668273) CL (test code = 107 mmol/L 98-108 3002604912) CO2 TOTAL (test code = 20 mmol/L 23-31 L 6255716320) AGAP (test code = 2-16 9926621648) BUN (test code = 8 mg/dL 7-23 4910417643) GLUCOSE (test code = 322 mg/dL 70-110 H 9305254702) CREATININE (test code = 0.65 mg/dL 0.50-1.04 1382936117) CALCIUM (test code = 7.7 mg/dL 8.6-10.6 L 2451199933) eGFR (test code = mL/min/1.73m2 4175768055) MICKY (test code = MICKY) Association of [...] tests). Lab Interpretation Abnormal (test code = 71831-9) [facility]11 Test Item Value Reference Range Interpretation Comments MAGNESIUM (test code = 6202349580) 1.6 mg/dL 1.7-2.4 L Lab Interpretation (test code = Abnormal 54300-1) [facility] (NA, K, CL, CO2, GLUCOSE, BUN, CREATININE, CA)2021-10-08 05:38:11 Test Item Value Reference Range Interpretation Comments NA (test code = 132 mmol/L 135-145 L 5354749600) K (test code = 4.7 mmol/L 3.5-5.0 9480129407) CL (test code = 107 mmol/L 98-108 6687271545) CO2 TOTAL (test code = 20 mmol/L 23-31 L 9190402115) AGAP (test code = 2-16 5664184062) BUN (test code = 8 mg/dL 7-23 9465557850) GLUCOSE (test code = 322 mg/dL 70-110 H 6162725938) CREATININE (test code = 0.65 mg/dL 0.50-1.04 2056125110) CALCIUM (test code = 7.7 mg/dL 8.6-10.6 L 1315825738) eGFR (test code = mL/min/1.73m2 0952069560) MICKY (test code = MICKY) Association of [...] tests). Lab Interpretation Abnormal (test code = 72294-7) [facility] 05[facility]38:11 Test Item Value Reference Range Interpretation Comments MAGNESIUM (test code = 1542034427) 1.6 mg/dL 1.7-2.4 L Lab Interpretation (test code = Abnormal 14772-5) [facility] (NA, K, CL, CO2, GLUCOSE, BUN, CREATININE, CA)2021-10-08 05:38:11 Test Item Value Reference Range Interpretation Comments NA (test code = 132 mmol/L 135-145 L 5895193440) K (test code = 4.7 mmol/L 3.5-5.0 6819175218) CL (test code = 107 mmol/L 98-108 2125188076) CO2 TOTAL (test code = 20 mmol/L 23-31 L 1213636798) AGAP (test code = 2-16 8096310113) BUN (test code = 8 mg/dL 7-23 8899616827) GLUCOSE (test code = 322 mg/dL 70-110 H 3590737698) CREATININE (test code = 0.65 mg/dL 0.50-1.04 5367997894) CALCIUM (test code = 7.7 mg/dL 8.6-10.6 L 2238568542) eGFR (test code = mL/min/1.73m2 1672383728) MICKY (test code = MICKY) Association of [...] tests). Lab Interpretation Abnormal (test code = 39185-2) [facility] Test Item Value Reference Range Interpretation Comments MAGNESIUM (test code = 1672584810) 1.6 mg/dL 1.7-2.4 L Lab Interpretation (test code = Abnormal 38236-8) [facility] WITH [id number] 04:49:24 Test Item Value Reference Range Interpretation [...] (test code = 59.6 fL 39.0-49.9 H 51804-8) RDW-CV (test code = 17.4 % 12.0-15.5 H 788-0) PLT (test code = See_Comment [Automated 777-3) message] The sy stem which generated this result transmitted reference range : 166 - 358 10*3/ ?L. The reference r susan was not used to interpret this result as normal/abnormal . MPV (test code = 11.5 fL 9.5-12.9 67273-2) NRBC/100 WBC (test See_Comment [Automat ed code = 4601068743) message] The system which generated this result transmitted reference range : 0.0 - 10.0 /100 WBCs. The refer ence range was not u sed to interpret th is result as normal/abnormal . NRBC x10^3 (test code <0.01 See_Comment [Auto mated = 5657048014) message] The s ystem which generated this result transmitted reference range : 10*3/?L. The reference range was not used to interpret this result as normal/abnormal . GRAN MAT (NEUT) % 90.2 % (test code = 770-8) IMM GRAN % (test code 0.60 % = 5641365167) LYMPH % (test code = 3.9 % 736-9) MONO % (test code = 5.2 % 5905-5) EOS % (test code = 0.0 % 713-8) BASO % (test code = 0.1 % 706-2) GRAN MAT x10^3(ANC) 8.42 10*3/uL 1.88-7.09 H (test code = 5584134960) IMM GRAN x10^3 (test 0.06 10*3/uL 0.00-0.06 code = 6704351484) LYMPH x10^3 (test code 0.36 10*3/uL 1.32-3.29 L = 731-0) MONO x10^3 (test code 0.49 10*3/uL 0.33-0.92 = 742-7) EOS x10^3 (test code = <0.03 0.03-0.39 L 711-2) BASO x10^3 (test code <0.03 0.01-0.07 = 704-7) Lab Interpretation Abnormal (test code = 43083-2) [facility] WITH [id number] 04:49:24 Test Item Value Reference Range Interpretation Comments WBC (test code = See_Comment [Automated 9590-2) message] The sy stem which generated this result transmitted reference range : 4.30 - 11.10 10*3/?L. The reference range was not used to interpret this result as normal/abnormal . RBC (test code = See_Comment L [Automated 309-8) message] The sy stem which generated this [...] (test code = 59.6 fL 39.0-49.9 H 13257-2) RDW-CV (test code = 17.4 % 12.0-15.5 H 788-0) PLT (test code = See_Comment [Automated 777-3) message] The sy stem which generated this result transmitted reference range : 166 - 358 10*3/ ?L. The reference r susan was not used to interpret this result as normal/abnormal . MPV (test code = 11.5 fL 9.5-12.9 78564-2) NRBC/100 WBC (test See_Comment [Automat ed code = 2689796410) message] The system which generated this result transmitted reference range : 0.0 - 10.0 /100 WBCs. The refer ence range was not u sed to interpret th is result as normal/abnormal . NRBC x10^3 (test code <0.01 See_Comment [Auto mated = 4208212803) message] The s ystem which generated this result transmitted reference range : 10*3/?L. The reference range was not used to interpret this result as normal/abnormal . GRAN MAT (NEUT) % 90.2 % (test code = 770-8) IMM GRAN % (test code 0.60 % = 1127822269) LYMPH % (test code = 3.9 % 736-9) MONO % (test code = 5.2 % 5905-5) EOS % (test code = 0.0 % 713-8) BASO % (test code = 0.1 % 706-2) GRAN MAT x10^3(ANC) 8.42 10*3/uL 1.88-7.09 H (test code = 5095983583) IMM GRAN x10^3 (test 0.06 10*3/uL 0.00-0.06 code = 9914334814) LYMPH x10^3 (test code 0.36 10*3/uL 1.32-3.29 L = 731-0) MONO x10^3 (test code 0.49 10*3/uL 0.33-0.92 = 742-7) EOS x10^3 (test code = <0.03 0.03-0.39 L 711-2) BASO x10^3 (test code <0.03 0.01-0.07 = 704-7) Lab Interpretation Abnormal (test code = 48482-2) [facility] WITH [id number] 04:49:24 Test Item Value Reference Range Interpretation [...] (test code = 59.6 fL 39.0-49.9 H 36823-7) RDW-CV (test code = 17.4 % 12.0-15.5 H 788-0) PLT (test code = See_Comment [Automated 777-3) message] The sy stem which generated this result transmitted reference range : 166 - 358 10*3/ ?L. The reference r susan was not used to interpret this result as normal/abnormal . MPV (test code = 11.5 fL 9.5-12.9 01495-6) NRBC/100 WBC (test See_Comment [Automat ed code = 8280325443) message] The system which generated this result transmitted reference range : 0.0 - 10.0 /100 WBCs. The refer ence range was not u sed to interpret th is result as normal/abnormal . NRBC x10^3 (test code <0.01 See_Comment [Auto mated = 4620902883) message] The s ystem which generated this result transmitted reference range : 10*3/?L. The reference range was not used to interpret this result as normal/abnormal . GRAN MAT (NEUT) % 90.2 % (test code = 770-8) IMM GRAN % (test code 0.60 % = 2126369435) LYMPH % (test code = 3.9 % 736-9) MONO % (test code = 5.2 % 5905-5) EOS % (test code = 0.0 % 713-8) BASO % (test code = 0.1 % 706-2) GRAN MAT x10^3(ANC) 8.42 10*3/uL 1.88-7.09 H (test code = 4516107259) IMM GRAN x10^3 (test 0.06 10*3/uL 0.00-0.06 code = 0114016225) LYMPH x10^3 (test code 0.36 10*3/uL 1.32-3.29 L = 731-0) MONO x10^3 (test code 0.49 10*3/uL 0.33-0.92 = 742-7) EOS x10^3 (test code = <0.03 0.03-0.39 L 711-2) BASO x10^3 (test code <0.03 0.01-0.07 = 704-7) Lab Interpretation Abnormal (test code = 23877-1) [facility] RBC (in units), 1 Units 2021-10-08 04:27:22 Test Item Value Reference Range Interpretation Comments Cross Match Result Compatible (test code = 4409) ISBT Blood Type Code (test code = 626478) Unit Blood Type (test A Pos code = 4410) Unit Number (test [id number] code = 4411) Blood Expiration Date & Time (test code = 207342) Status Information Issued (test code = 4412) Product Red Blood Cells Identification (test code = 4413) Product Code (test D0471W84 Performed at [facility] code = 4414) Laboratory Services [facility] Blood [address] [address]Rddf Free: [phone] A No. [id number] [facility] Packed RBC (in units), 1 Units 2021-10-08 04:27:22 Test Item Value Reference Range Interpretation Comments Cross Match Result Compatible (test code = 4409) ISBT Blood Type Code (test code = 769387) Unit Blood Type (test A Pos code = 4410) Unit Number (test [id number] code = 4411) Blood Expiration Date & Time (test code = 916331) Status Information Issued (test code = 4412) Product Red Blood Cells Identification (test code = 4413) Product Code (test [id number] Performed at [facility] code = 4414) Laboratory Services [facility] Blood [address] [address]Rpwf Free: [phone] A [facility]. [id number] [facility] (in units), 1 Units 2021-10-08 04:27:22 Test Item Value Reference Range Interpretation Comments Cross Match Result Compatible (test code = 4409) ISBT Blood Type Code (test code = 400879) Unit Blood Type (test A Pos code = 4410) Unit Number (test [id number] code = 4411) Blood Expiration Date & Time (test code = 066963) Status Information Issued (test code = 4412) Product Red Blood Cells Identification (test code = 4413) Product Code (test [id number] Performed at [facility] code = 4414) Laboratory Services [facility] Blood [address] [address]Qumi Free: [phone] A No. [id number] [facility]2021-10-08 03:52:59 Test Item Value Reference Range Interpretation Comments POCT GLU (test code = 4263886191) 261 mg/dL 70-110 H Lab Interpretation (test code = Abnormal 30525-9) [facility] GLUCOSE (AUTOMATED)2021-10-08 03:52:59 Test Item Value Reference Range Interpretation Comments POCT GLU (test code = 1634385560) 261 mg/dL 70-110 H Lab Interpretation (test code = Abnormal 63720-5) [facility] GLUCOSE (AUTOMATED)2021-10-08 03:52:59 Test Item Value Reference Range Interpretation Comments POCT GLU (test code = 7750242198) 261 mg/dL 70-110 H Lab Interpretation (test code = Abnormal 38907-0) [facility] WITH [id number] 00:07:18 Test Item Value Reference Range Interpretation [...] (test code = 60.2 fL 39.0-49.9 H 86286-1) RDW-CV (test code = 17.7 % 12.0-15.5 H 788-0) PLT (test code = See_Comment [Automated 777-3) message] The sy stem which generated this result transmitted reference range : 166 - 358 10*3/ ?L. The reference r susan was not used to interpret this result as normal/abnormal . MPV (test code = 11.6 fL 9.5-12.9 56988-3) NRBC/100 WBC (test See_Comment [Automat ed code = 1990465613) message] The system which generated this result transmitted reference range : 0.0 - 10.0 /100 WBCs. The refer ence range was not u sed to interpret th is result as normal/abnormal . NRBC x10^3 (test code <0.01 See_Comment [Auto mated = 2429311471) message] The s ystem which generated this result transmitted reference range : 10*3/?L. The reference range was not used to interpret this result as normal/abnormal . GRAN MAT (NEUT) % 93.5 % (test code = 770-8) IMM GRAN % (test code 0.80 % = 3519504269) LYMPH % (test code = 3.4 % 736-9) MONO % (test code = 2.2 % 5905-5) EOS % (test code = 0.0 % 713-8) BASO % (test code = 0.1 % 706-2) GRAN MAT x10^3(ANC) 9.81 10*3/uL 1.88-7.09 H (test code = 7630241450) IMM GRAN x10^3 (test 0.08 10*3/uL 0.00-0.06 H code = 0396711924) LYMPH x10^3 (test code 0.36 10*3/uL 1.32-3.29 L = 731-0) MONO x10^3 (test code 0.23 10*3/uL 0.33-0.92 L = 742-7) EOS x10^3 (test code = <0.03 0.03-0.39 L 711-2) BASO x10^3 (test code <0.03 0.01-0.07 = 704-7) Lab Interpretation Abnormal (test code = 51407-2) [facility] WITH [id number] 00:07:18 Test Item Value Reference Range Interpretation [...] (test code = 60.2 fL 39.0-49.9 H 77721-5) RDW-CV (test code = 17.7 % 12.0-15.5 H 788-0) PLT (test code = See_Comment [Automated 777-3) message] The sy stem which generated this result transmitted reference range : 166 - 358 10*3/ ?L. The reference r susan was not used to interpret this result as normal/abnormal . MPV (test code = 11.6 fL 9.5-12.9 03758-8) NRBC/100 WBC (test See_Comment [Automat ed code = 6707495425) message] The system which generated this result transmitted reference range : 0.0 - 10.0 /100 WBCs. The refer ence range was not u sed to interpret th is result as normal/abnormal . NRBC x10^3 (test code <0.01 See_Comment [Auto mated = 5975289386) message] The s ystem which generated this result transmitted reference range : 10*3/?L. The reference range was not used to interpret this result as normal/abnormal . GRAN MAT (NEUT) % 93.5 % (test code = 770-8) IMM GRAN % (test code 0.80 % = 5059973552) LYMPH % (test code = 3.4 % 736-9) MONO % (test code = 2.2 % 5905-5) EOS % (test code = 0.0 % 713-8) BASO % (test code = 0.1 % 706-2) GRAN MAT x10^3(ANC) 9.81 10*3/uL 1.88-7.09 H (test code = 3522406392) IMM GRAN x10^3 (test 0.08 10*3/uL 0.00-0.06 H code = 1284371671) LYMPH x10^3 (test code 0.36 10*3/uL 1.32-3.29 L = 731-0) MONO x10^3 (test code 0.23 10*3/uL 0.33-0.92 L = 742-7) EOS x10^3 (test code = <0.03 0.03-0.39 L 711-2) BASO x10^3 (test code <0.03 0.01-0.07 = 704-7) Lab Interpretation Abnormal (test code = 43480-0) [facility] WITH [id number] 00:07:18 Test Item Value Reference Range Interpretation [...] (test code = 60.2 fL 39.0-49.9 H 22708-7) RDW-CV (test code = 17.7 % 12.0-15.5 H 788-0) PLT (test code = See_Comment [Automated 777-3) message] The sy stem which generated this result transmitted reference range : 166 - 358 10*3/ ?L. The reference r susan was not used to interpret this result as normal/abnormal . MPV (test code = 11.6 fL 9.5-12.9 55091-6) NRBC/100 WBC (test See_Comment [Automat ed code = 1412038108) message] The system which generated this result transmitted reference range : 0.0 - 10.0 /100 WBCs. The refer ence range was not u sed to interpret th is result as normal/abnormal . NRBC x10^3 (test code <0.01 See_Comment [Auto mated = 1519998550) message] The s ystem which generated this result transmitted reference range : 10*3/?L. The reference range was not used to interpret this result as normal/abnormal . GRAN MAT (NEUT) % 93.5 % (test code = 770-8) IMM GRAN % (test code 0.80 % = 0865333852) LYMPH % (test code = 3.4 % 736-9) MONO % (test code = 2.2 % 5905-5) EOS % (test code = 0.0 % 713-8) BASO % (test code = 0.1 % 706-2) GRAN MAT x10^3(ANC) 9.81 10*3/uL 1.88-7.09 H (test code = 8646001731) IMM GRAN x10^3 (test 0.08 10*3/uL 0.00-0.06 H code = 9460448834) LYMPH x10^3 (test code 0.36 10*3/uL 1.32-3.29 L = 731-0) MONO x10^3 (test code 0.23 10*3/uL 0.33-0.92 L = 742-7) EOS x10^3 (test code = <0.03 0.03-0.39 L 711-2) BASO x10^3 (test code <0.03 0.01-0.07 = 704-7) Lab Interpretation Abnormal (test code = 57897-4) [facility] Packed RBC (in units), 2 Units 2021-10-07 21:08:55 Test Item Value Reference Range Interpretation Comments Cross Match Result Compatible (test code = 4409) ISBT Blood Type Code (test code = 764992) Unit Blood Type (test A Pos code = 4410) Unit Number (test [id number] code = 4411) Blood Expiration Date & Time (test code = 693950) Status Information Issued (test code = 4412) Product Red Blood Cells Identification (test code = 4413) Product Code (test E2576K70 Performed at [facility] code = 4414) Laboratory Services [facility] Blood [address] [address]Vuwz Free: [phone] A No. [id number] [facility] Packed RBC (in units), 2 Units 2021-10-07 21:08:55 Test Item Value Reference Range Interpretation Comments Cross Match Result Compatible (test code = 4409) ISBT Blood Type Code (test code = 244473) Unit Blood Type (test A Pos code = 4410) Unit Number (test [id number] code = 4411) Blood Expiration Date & Time (test code = 654650) Status Information Issued (test code = 4412) Product Red Blood Cells Identification (test code = 4413) Product Code (test Z3408V06 Performed at [facility] code = 4414) Laboratory Services [facility] Blood [address] [address]Sjop Free: [phone] A No. [id number] [facility] Packed RBC (in units), 2 Units 2021-10-07 21:08:55 Test Item Value Reference Range Interpretation Comments Cross Match Result Compatible (test code = 4409) ISBT Blood Type Code (test code = 997542) Unit Blood Type (test A Pos code = 4410) Unit Number (test [id number] code = 4411) Blood Expiration Date & Time (test code = 315985) Status Information Issued (test code = 4412) Product Red Blood Cells Identification (test code = 4413) Product Code (test Z3139C97 Performed at [facility] code = 4414) Laboratory Services - [facility] Blood [address] [address]Febw Free: [phone] A No. [id number] [facility] MET[facility]OLIC PANEL ([id number])2021-10-07 12:06:32 Test Item Value Reference Range Interpretation Comments NA (test code = 139 mmol/L 135-145 6720047443) K (test code = 4.1 mmol/L 3.5-5.0 9722974847) CL (test code = 110 mmol/L 98-108 H 1213863438) CO2 TOTAL (test code = 24 mmol/L 23-31 5006904019) AGAP (test code = 2-16 9890177764) BUN (test code = 6 mg/dL 7-23 L 8619714363) GLUCOSE (test code = 95 mg/dL 70-110 5031398265) CREATININE (test code = 0.48 mg/dL 0.50-1.04 L 6690614641) TOTAL BILI (test code = 0.3 mg/dL 0.1-1.4 6323773535) CALCIUM (test code = 8.2 mg/dL 8.6-10.6 L 4565011721) T PROTEIN (test code = 6.3 g/dL 6.3-8.2 3644837281) ALBUMIN (test code = 3.2 g/dL 3.5-5.0 L 7578955002) ALK PHOS (test code = 60 U/L 34-122 9712265939) ALTv (test code = 12 U/L 5-35 1742-6) AST(SGOT) (test code = 19 U/L 13-40 8917860381) eGFR (test code = mL/min/1.73m2 1835850523) MICKY (test code = MICKY) Association of [...] tests). Lab Interpretation Abnormal (test code = 67438-1) [facility]. METABOLIC PANEL (90616)2021-10-07 12:06:32 Test Item Value Reference Range Interpretation Comments NA (test code = 139 mmol/L 135-145 8678176342) K (test code = 4.1 mmol/L 3.5-5.0 7401549571) CL (test code = 110 mmol/L 98-108 H 0129897896) CO2 TOTAL (test code = 24 mmol/L 23-31 4465762429) AGAP (test code = 2-16 7398337033) BUN (test code = 6 mg/dL 7-23 L 4848892337) GLUCOSE (test code = 95 mg/dL 70-110 0043499833) CREATININE (test code = 0.48 mg/dL 0.50-1.04 L 0715814100) TOTAL BILI (test code = 0.3 mg/dL 0.1-1.3 6624338139) CALCIUM (test code = 8.2 mg/dL 8.6-10.6 L 9150829915) T PROTEIN (test code = 6.3 g/dL 6.3-8.2 8751620858) ALBUMIN (test code = 3.2 g/dL 3.5-5.0 L 2918151792) ALK PHOS (test code = 60 U/L 34-122 1815680239) ALTv (test code = 12 U/L 5-35 1742-6) AST(SGOT) (test code = 19 U/L 13-40 8702512646) eGFR (test code = mL/min/1.73m2 5406729475) MICKY (test code = MICKY) Association of [...] tests). Lab Interpretation Abnormal (test code = 69772-0) [facility]. METABOLIC PANEL (89591)2021-10-07 12:06:32 Test Item Value Reference Range Interpretation Comments NA (test code = 139 mmol/L 135-145 9751792501) K (test code = 4.1 mmol/L 3.5-5.0 3180736863) CL (test code = 110 mmol/L 98-108 H 9007416571) CO2 TOTAL (test code = 24 mmol/L 23-31 1048915214) AGAP (test code = 2-16 9020442595) BUN (test code = 6 mg/dL 7-23 L 5693964061) GLUCOSE (test code = 95 mg/dL 70-110 7544695660) CREATININE (test code = 0.48 mg/dL 0.50-1.04 L 5614579037) TOTAL BILI (test code = 0.3 mg/dL 0.1-1.9 1260269316) CALCIUM (test code = 8.2 mg/dL 8.6-10.6 L 3975370403) T PROTEIN (test code = 6.3 g/dL 6.3-8.2 2182513697) ALBUMIN (test code = 3.2 g/dL 3.5-5.0 L 6395894705) ALK PHOS (test code = 60 U/L 34-122 2289967707) ALTv (test code = 12 U/L 5-35 1742-6) AST(SGOT) (test code = 19 U/L 13-40 2098150427) eGFR (test code = mL/min/1.73m2 9366868184) MICKY (test code = MICKY) Association of [...] tests). Lab Interpretation Abnormal (test code = 80599-4) [facility] / [id number] 00:45:45 Test Item Value Reference Range Interpretation Comments PROTIME PATIENT (test See_Comment H [Auto mated message] code = 5964-2) The system [employer] generated this result transmitted ref erence range: 10.1 - 1 2.6 Seconds. The reference range was not used to int erpret this result as normal/abnormal . INR (test code = 6301-6) Nor mal INR <1.1; Warfarin Therap eutic range 2.0 to 3. 0 or 2.5 to 3.5, dep ending upon the indica tions. Lab Interpretation (test Abnormal code = 79068-6) [facility] THRM[facility] [id number] 00:45:45 Test Item Value Reference Range Interpretation Comments APTT Patient (test code See_Comment L [Au tomated message] = 3173-2) The system [employer] generated this result transmitted ref erence range: 26 - 36 Seconds. The reference range was not used to int erpret this result as normal/abnormal . Lab Interpretation (test Abnormal code = 77522-0) [facility]IB[facility]2022-06-23 00:45:45 Test Item Value Reference Range Interpretation Comments Fibrinogen (test code = 7782070647) 306 mg/dL 167-453 Lab Interpretation (test code = Normal 40581-9) [facility] PasoProthrom[facility] Time / [id number] 00:45:45 Test Item Value Reference Range Interpretation Comments PROTIME PATIENT (test See_Comment H [Auto mated message] code = 5964-2) The system [employer] generated this result transmitted ref erence range: 10.1 - 1 2.6 Seconds. The reference range was not used to int erpret this result as normal/abnormal . INR (test code = 6301-6) Nor mal INR <1.1; Warfarin Therap eutic range 2.0 to 3. 0 or 2.5 to 3.5, dep ending upon the indica tions. Lab Interpretation (test Abnormal code = 76901-3) [facility] THRM[facility] [id number] 00:45:45 Test Item Value Reference Range Interpretation Comments APTT Patient (test code See_Comment L [Au tomated message] = 3173-2) The system [employer] generated this result transmitted ref erence range: 26 - 36 Seconds. The reference range was not used to int erpret this result as normal/abnormal . Lab Interpretation (test Abnormal code = 94190-3) [facility]2022-06-23 00:45:45 Test Item Value Reference Range Interpretation Comments Fibrinogen (test code = 9916641841) 306 mg/dL 167-453 Lab Interpretation (test code = Normal 35003-7) [facility] Time / [id number] 00:45:45 Test Item Value Reference Range Interpretation Comments PROTIME PATIENT (test See_Comment H [Auto mated message] code = 5964-2) The system [employer] generated this result transmitted ref erence range: 10.1 - 1 2.6 Seconds. The reference range was not used to int erpret this result as normal/abnormal . INR (test code = 6301-6) Nor mal INR <1.1; Warfarin Therap eutic range 2.0 to 3. 0 or 2.5 to 3.5, dep ending upon the indica tions. Lab Interpretation (test Abnormal code = 25700-7) [facility] [id number] 00:45:45 Test Item Value Reference Range Interpretation Comments APTT Patient (test code See_Comment L [Au tomated message] = 3173-2) The system [employer] generated this result transmitted ref erence range: 26 - 36 Seconds. The reference range was not used to int erpret this result as normal/abnormal . Lab Interpretation (test Abnormal code = 81012-3) [facility]:45 Test Item Value Reference Range Interpretation Comments Fibrinogen (test code = 5942891832) 306 mg/dL 167-453 Lab Interpretation (test code = Normal 05688-1) [facility] WITH [id number] 00:39:06 Test Item Value Reference Range Interpretation [...] (test code = 62.5 fL 39.0-49.9 H 84948-2) RDW-CV (test code = 19.2 % 12.0-15.5 H 788-0) PLT (test code = See_Comment L [Automated 777-3) message] The sy stem which generated this result transmitted reference range : 166 - 358 10*3/ ?L. The reference r susan was not used to interpret this result as normal/abnormal . MPV (test code = 10.4 fL 9.5-12.9 54514-3) NRBC/100 WBC (test See_Comment [Automat ed code = 8302245873) message] The system which generated this result transmitted reference range : 0.0 - 10.0 /100 WBCs. The refer ence range was not u sed to interpret th is result as normal/abnormal . NRBC x10^3 (test code <0.01 See_Comment [Auto mated = 6905610787) message] The s ystem which generated this result transmitted reference range : 10*3/?L. The reference range was not used to interpret this result as normal/abnormal . GRAN MAT (NEUT) % 64.9 % (test code = 770-8) IMM GRAN % (test code 0.40 % = 0797913277) LYMPH % (test code = 24.5 % 736-9) MONO % (test code = 6.8 % 5905-5) EOS % (test code = 3.0 % 713-8) BASO % (test code = 0.4 % 706-2) GRAN MAT x10^3(ANC) 3.23 10*3/uL 1.88-7.09 (test code = 4648781213) IMM GRAN x10^3 (test <0.03 0.00-0.06 code = 5972937107) LYMPH x10^3 (test code 1.22 10*3/uL 1.32-3.29 L = 731-0) MONO x10^3 (test code 0.34 10*3/uL 0.33-0.92 = 742-7) EOS x10^3 (test code = 0.15 10*3/uL 0.03-0.39 711-2) BASO x10^3 (test code <0.03 0.01-0.07 = 704-7) Lab Interpretation Abnormal (test code = 60153-3) [facility] WITH [id number] 00:39:06 Test Item Value Reference Range Interpretation Comments WBC (test code = See_Comment [Automated 1290-2) message] The sy stem which generated this [...] (test code = 62.5 fL 39.0-49.9 H 74677-0) RDW-CV (test code = 19.2 % 12.0-15.5 H 788-0) PLT (test code = See_Comment L [Automated 777-3) message] The sy stem which generated this result transmitted reference range : 166 - 358 10*3/ ?L. The reference r susan was not used to interpret this result as normal/abnormal . MPV (test code = 10.4 fL 9.5-12.9 69903-3) NRBC/100 WBC (test See_Comment [Automat ed code = 4750045487) message] The system which generated this result transmitted reference range : 0.0 - 10.0 /100 WBCs. The refer ence range was not u sed to interpret th is result as normal/abnormal . NRBC x10^3 (test code <0.01 See_Comment [Auto mated = 0836141641) message] The s ystem which generated this result transmitted reference range : 10*3/?L. The reference range was not used to interpret this result as normal/abnormal . GRAN MAT (NEUT) % 64.9 % (test code = 770-8) IMM GRAN % (test code 0.40 % = 1190513847) LYMPH % (test code = 24.5 % 736-9) MONO % (test code = 6.8 % 5905-5) EOS % (test code = 3.0 % 713-8) BASO % (test code = 0.4 % 706-2) GRAN MAT x10^3(ANC) 3.23 10*3/uL 1.88-7.09 (test code = 3869420699) IMM GRAN x10^3 (test <0.03 0.00-0.06 code = 0441909823) LYMPH x10^3 (test code 1.22 10*3/uL 1.32-3.29 L = 731-0) MONO x10^3 (test code 0.34 10*3/uL 0.33-0.92 = 742-7) EOS x10^3 (test code = 0.15 10*3/uL 0.03-0.39 711-2) BASO x10^3 (test code <0.03 0.01-0.07 = 704-7) Lab Interpretation Abnormal (test code = 72074-5) [facility] WITH [id number] 00:39:06 Test Item Value Reference Range Interpretation [...] (test code = 62.5 fL 39.0-49.9 H 05998-3) RDW-CV (test code = 19.2 % 12.0-15.5 H 788-0) PLT (test code = See_Comment L [Automated 777-3) message] The sy stem which generated this result transmitted reference range : 166 - 358 10*3/ ?L. The reference r susan was not used to interpret this result as normal/abnormal . MPV (test code = 10.4 fL 9.5-12.9 68131-8) NRBC/100 WBC (test See_Comment [Automat ed code = 8010898610) message] The system which generated this result transmitted reference range : 0.0 - 10.0 /100 WBCs. The refer ence range was not u sed to interpret th is result as normal/abnormal . NRBC x10^3 (test code <0.01 See_Comment [Auto mated = 2505684440) message] The s ystem which generated this result transmitted reference range : 10*3/?L. The reference range was not used to interpret this result as normal/abnormal . GRAN MAT (NEUT) % 64.9 % (test code = 770-8) IMM GRAN % (test code 0.40 % = 1653325107) LYMPH % (test code = 24.5 % 736-9) MONO % (test code = 6.8 % 5905-5) EOS % (test code = 3.0 % 713-8) BASO % (test code = 0.4 % 706-2) GRAN MAT x10^3(ANC) 3.23 10*3/uL 1.88-7.09 (test code = 8500278663) IMM GRAN x10^3 (test <0.03 0.00-0.06 code = 9232064680) LYMPH x10^3 (test code 1.22 10*3/uL 1.32-3.29 L = 731-0) MONO x10^3 (test code 0.34 10*3/uL 0.33-0.92 = 742-7) EOS x10^3 (test code = 0.15 10*3/uL 0.03-0.39 711-2) BASO x10^3 (test code <0.03 0.01-0.07 = 704-7) Lab Interpretation Abnormal (test code = 68056-9) [facility] [id number] 21:53:57 Test Item Value Reference Range Interpretation Comments ABO & RH (test code A POSITIVE Performe d at [facility] = 20) Laboratory Serv [facility]3 [facility] s [address]Chwo Free: [phone] A No. [id number] IAT (test code = Negative Performed a t [facility] 1185) Laboratory [facility] s [address]Eych Free: [phone] A No. [id number] [facility]Type [facility] Screen - This is a pre-surgical type and screen. ONCE [id number] 21:53:57 Test Item Value Reference Range Interpretation Comments ABO & RH (test code A POSITIVE Performe d at [facility] = 20) Laboratory [facility] [place] [address] s [address]Qups Free: [phone] A No. [id number] IAT (test code = Negative Performed a t [facility] 1185) Laboratory [facility] [place] [address] s [address]Fwbt Free: [phone] A No. [id number] [facility] [id number] 21:53:57 Test Item Value Reference Range Interpretation Comments ABO & RH (test code A POSITIVE Performe d at [facility] = 20) Laboratory [facility] [place] [address] s [address]Eyrw Free: [phone] A No. [id number] IAT (test code = Negative Performed a t [facility] 1185) Laboratory [facility] [place] [address] s [address]Euvy Free: [phone] A No. [id number] [facility] - This is a pre-surgical type and screen. ONCE [id number] 21:53:57 Test Item Value Reference Range Interpretation Comments ABO & RH (test code A POSITIVE Performe d at [facility] = 20) Laboratory [facility] [place] [address] s [address]Xvhb Free: [phone] A No. [id number] IAT (test code = Negative Performed a t [facility] 1185) Laboratory [facility] [place] [address] s [address]Obyj Free: [phone] A No. [id number] [facility] BranchType and Screen - ONCE [id number] 21:53:57 Test Item Value Reference Range Interpretation Comments ABO & RH (test code A POSITIVE Performe d at [facility] = 20) Laboratory Serv [facility]3 [address] [facility] s [address]Xbrb Free: [phone] A No. [id number] IAT (test code = Negative Performed a t [facility] 1185) Laboratory [facility] [place] [address] s [address]Jcvn Free: [phone] A No. [id number] [facility] This is a pre-surgical type and screen. ONCE [id number] 21:53:57 Test Item Value Reference Range Interpretation Comments ABO & RH (test code A POSITIVE Performe d at [facility] = 20) Laboratory [facility] [place] [address] s [address]Mmnr Free: [phone] A No. [id number] IAT (test code = Negative Performed a t [facility] 1185) Laboratory [facility] [place] [address] s [address]Unne Free: [phone] A No. [id number] [facility] [id number] 20:12:00 Test Item Value Reference Range Interpretation Comments POCT PREG (test code = 1605) Negative On board controls acceptable with C Yes Line (test code = 3574) POCT PREG LOT # (test code = 3575) POCT PREG TEST DATE (test code = 3576) [id number] 20:12:00 Test Item Value Reference Range Interpretation Comments POCT PREG (test code = 1605) Negative On board controls acceptable with C Yes Line (test code = 3574) POCT PREG LOT # (test code = 3575) POCT PREG TEST DATE (test code = 3576) [facility] [id number] 20:12:00 Test Item Value Reference Range Interpretation Comments POCT PREG (test code = 1605) Negative On board controls acceptable with C Yes Line (test code = 3574) POCT PREG LOT # (test code = 3575) POCT PREG TEST DATE (test code = 3576) [facility] W/AUTO [id number] 08:31:00 Test Item Value Reference Range Interpretation [...] REQUIRED (test code = PLTMR) CBC W/AUTO [id number] 13:59:00 Test Item Value Reference Range Interpretation [...] STEVE.RE AD BACK & CONFIRME D? Y.BY [id number] 05/04/21 1356 IMMATURE PLATELET 6.0 % 0.0-10.8 [...] REQUIRED (test code = PLTMR) CBC W/AUTO [id number] 00:52:00 Test Item Value Reference Range Interpretation Comments WHITE BLOOD CELL (test 6.5 K/mm3 6.5-12.3 N code = WBC) RED BLOOD CELL (test 2.45 M/mm3 3.51-4.69 L code = RBC) HEMOGLOBIN (test code = 6.4 g/dL 10.1-13.8 LL RESU LTS CALLED TO HGB) CLIFFORD DAHLIA AD BACK & CONFIRME D? YBY [id number] 05/04/21 0025 HEMATOCRIT (test code = 21.5 [...] REQUIRED (test code = PLTMR) COMPREHENSIVE METABOLIC [id number] 00:38:00 Test Item Value Reference Range Interpretation [...] units/L 46-116 N code = ALKP) PROTHROMBIN [id number] 00:35:00 Test Item Value Reference Range Interpretation Comments PROTHROMBIN TIME PATIENT (test code 13.6 secs 10.1-12.3 H = PTP) THROMBOPLASTIN TIME [id number] 00:35:00 Test Item Value Reference Range Interpretation Comments THROMBOPLASTIN TIME PARTIAL (test 30.6 secs 22-38 N code = PTT) - DUP AB/PEL/SC/[id number] 00:00:00 [facility] SANTIAGO : 1985 Sex: F Patient Name: SEKOU CAMPBELL Unit No: [id number] EXAMS: CPT CODE: [id number] DUP AB/PEL/SC/LTD 00172 PROCEDURE INFORMATION: Exam: US Pelvis Complete (Transabdominal), [...] and signed by: Reza Alexandre MD [facility] NAME: SEKOU CAMPBELL Radiology Department PHYS: LASHELLMICHELLEPercy Chelo Ramírez MD [address] : 1985 AGE: 35 SEX: F [place] [address] LOC: Maya.ERS PHONE #: [phone] EXAM DATE: 05/04/2021 STATUS: REG ER FAX #: [phone] RAD NO: Page 1 Signed Report (CONTINUED) Patient Name: SEKOU CAMPBELL Unit No: [id number] EXAMS: CPT CODE: [id number] DUP AB/PEL/SC/LTD 00839 (Continued) CC: Chelo Ramírez MD Technologist: Griselda Streeter RDMS Probe: Trnscrbd D/ (0121) GCD.CPS Orig Print D/T: S: 05/04/2021 (0124) [facility] NAME: SEKOU CAMPBELL MICHAELWEI Radiology Department PHYS: MICHELLE Chelo Ramírez MD [address] : 1985 AGE: 35 SEX: F [place] [address] LOC: Maya.ERS PHONE #: [phone] EXAM DATE: 05/04/2021 STATUS: REG ER FAX #: [phone] RAD NO: Page 2 Signed Report Patient Name: SEKOU CAMPBELL Unit No: [id number] EXAMS: CPT CODE: [id number] DUP AB/PEL/SC/LTD 72459 (Continued) [facility] NAME: SEKOU CAMPBELL MICHAELCERES Radiology Department PHYS: KHAH Chelo Ramírez MD [address] : 1985 AGE: 35 SEX: F [place], [place] [address] LOC: JOSSUE PHONE #: [phone] EXAM DATE: 05/04/2021 STATUS: GERBER ER FAX #: [phone] RAD NO: Page 3 Signed Report- US PELVIS [id number] 00:00:00 [facility] 1985 Sex: F Patient Name: SEKOU CAMPBELL Unit No: [id number] EXAMS: CPT CODE: [id number] US PELVIS COMPLETE 69761 PROCEDURE INFORMATION: Exam: US Pelvis Complete (Transabdominal), [...] and signed by: Reza Alexandre MD [facility] NAME: SEKOU CAMPBELL Radiology Department PHYS: KHAHE. Chelo Ramírez MD [address] : 1985 AGE: 35 SEX: F [place], [place] [address] LOC: LiatERS PHONE #: [phone] EXAM DATE: 05/04/2021 STATUS: REG ER FAX #: [phone] RAD NO: Page 1 Signed Report (CONTINUED) Patient Name: SEKOU CAMPBELL Unit No: [id number] EXAMS: CPT CODE: [id number] US PELVIS COMPLETE 97559 (Continued) CC: Chelo Ramírez MD Technologist: Griselda Streeter RDMS Probe: Trnscrbd D/ (0121) GCD.CPS Orig Print D/T: S: 05/04/2021 (0121) [facility] NAME: SEKOU CAMPBELL Radiology Department PHYS: CRISTIAN Schrader Chelo Ramírez MD [address] : 1985 AGE: 35 SEX: F [place], [place] [address] LOC: F.ERS PHONE #: [phone] EXAM DATE: 05/04/2021 STATUS: REG ER FAX #: [phone] RAD NO: Page 2 Signed Report Patient Name: SEKOU CAMPBELL Unit No: [id number] EXAMS: CPT CODE: [id number] US PELVIS COMPLETE 30255 (Continued) [facility] NAME: SEKOU CAMPBELL Radiology Department PHYS: Chelo Ramírez MD [address] : 1985 AGE: 35 SEX: F [place] [address] LOC: F.ERS PHONE #: [phone] EXAM DATE: 05/04/2021 STATUS: REG ER FAX #: [phone] RAD NO: Page 3 Signed Report- US TRANSVAGINAL [id number] 00:00:00 [facility] 1985 Sex: F Patient Name: SEKOU CAMPBELL Unit No: [id number] EXAMS: CPT CODE: [id number] US TRANSVAGINAL W/PELVIS 51699 PROCEDURE INFORMATION: Exam: US Pelvis Complete (Transabdominal), [...] and signed by: Reza Alexandre MD [facility] NAME: SEKOU CAMPBELL Radiology Department PHYS: Chelo Ramírez MD [address]OB: 1985 AGE: 35 SEX: F [place] [address] LOC: Maya.ERS PHONE #: [phone] EXAM DATE: 05/04/2021 STATUS: REG ER FAX #: [phone] RAD NO: Page 1 Signed Report (CONTINUED) Patient Name: SEKOU CAMPBELL Unit No: [id number] EXAMS: CPT CODE: [id number] US TRANSVAGINAL W/PELVIS 54979 (Continued) CC: Chelo Ramírez MD Technologist: Griselda Streeter, [facility] Probe: [id number] Trnscrbd D/ (0121) GCD.CPS Orig Print D/T: S: 05/04/2021 (0122) [facility] NAME: SEKOU CAMPBELL Radiology Department PHYS: Chelo Ramírez MD [address] : 1985 AGE: 35 SEX: F [place] [address] LOC: LiatERS PHONE #: [phone] EXAM DATE: 05/04/2021 STATUS: REG ER FAX #: [phone] RAD NO: Page 2 Signed Report Patient Name: SEKOU CAMPBELL Unit No: [id number] EXAMS: CPT CODE: [id number] US TRANSVAGINAL W/PEL VIS 11671 (Continued) [facility] NAME: SEKOU CAMPBELL Radiology Department PHYS: DEMIAN Chelo Ramírez MD [address] : 1985 AGE: 35 SEX: F [place] [address] LOC: Maya.ERS PHONE #: [phone] EXAM DATE: 05/04/2021 STATUS: REG ER FAX #: [phone] RAD NO: Page 3 Signed Report- DUP VEIN [id number] 08:04:00 [facility] : 1985 Sex: F Patient Name: SEKOU CAMPBELL Unit No: [id number] EXAMS: CPT CODE: [id number] DUP VEIN SAMANTHA 93461 BILATERAL LOWER EXTREMITY DUPLEX VENOUS DOPPLER ULTRASOUND, [...] Orig Print D/T: S: 05/04/2020 (0807) [facility] NAME: SEKOU CAMPBELL Radiology Department PHYS: Magdalena Borrego MD [address] : 1985 AGE: 34 SEX: F [place] [address] LOC: LiatIC4 A PHONE #: EXAM DATE: 05/04/2020 STATUS: ADM IN FAX #: [phone] RAD NO: Page 1 Signed Report Patient Name: SEKOU CAMPBELL Unit No: [id number] EXAMS: CPT CODE: [id number] DUP VEIN SAMANTHA 23952 (Continued) [facility] NAME: SEKOU CAMPBELL Radiology Department PHYS: Magdalena Reyes MD [address] : 1985 AGE: 34 SEX: F [place], [place] [address] LOC: ROMAIN Saunders PHONE #: [phone] EXAM DATE: 05/04/2020 STATUS: ADM IN FAX #: [phone] RAD NO:Page 2 Signed ReportCBC W/AUTO DIFF [...] NORMAL REQUIRED (test code = PLTMR) WBC [id number] 04:57:00 Test Item Value Reference Range Interpretation [...] NORMAL A code = PLTMORPH) CBC W/AUTO [id number] 04:56:00 Test Item Value Reference Range Interpretation [...] NORMAL REQUIRED (test code = PLTMR) WBC [id number] 04:56:00 Test Item Value Reference Range Interpretation Comments SEGMENTED NEUTROPHILS (test code = SEG) % 56.5-79.4 LYMPHOCYTE (test code = LYMPH) % 20-40 CBC W/AUTO [id number] 04:56:00 Test Item Value Reference Range Interpretation [...] NORMAL REQUIRED (test code = PLTMR) WBC [id number] 04:56:00 Test Item Value Reference Range Interpretation Comments SEGMENTED NEUTROPHILS (test code = SEG) % 56.5-79.4 LYMPHOCYTE (test code = LYMPH) % 20-40 COMPREHENSIVE METABOLIC [id number] 04:39:00 Test Item Value Reference Range Interpretation [...] 46-116 N code = ALKP) CBC W/AUTO [id number] 19:13:00 Test Item Value Reference Range Interpretation Comments WHITE BLOOD CELL 5.9 K/mm3 6.6-12.1 L (test code = WBC) RED BLOOD CELL (test 2.60 M/mm3 3.45-5.01 L code = RBC) HEMOGLOBIN (test 6.9 g/dL 10.7-13.9 L RESULTS FERMIN IFIED BY code = HGB) REPEAT ANALYSIS RESULTS CALLED TO GIANNA VERDUGOREAD BACK & CONFIRME D? Y.BY F.LAB.[facility] 05/03. HEMATOCRIT (test [...] PLT) SUREKHA.READ BA CK & CONFIRMED? Y.BY F.LAB.[facility] 05/03 IMMATURE PLATELET [...] REQUIRED (test code PRESENT = PLTMR) LACTIC [id number] 19:05:00 Test Item Value Reference Range Interpretation Comments LACTIC ACID (test 4.5 MMOL/L 0.5-2.2 HH RESULTS CA LLED TO code = LACT) MARIBEL.READ BACK & CONFIRMED? YES. BY GlenAS04 04/17. COMPREHENSIVE METABOLIC [id number] 19:01:00 Test Item Value Reference Range Interpretation [...] 60 units/L 46-116 code = ALKP) PROTHROMBIN [id number] 19:01:00 Test Item Value Reference Range Interpretation Comments PROTHROMBIN TIME PATIENT (test code 13.3 secs 10.4-12.4 H = PTP) THROMBOPLASTIN TIME [id number] 19:01:00 Test Item Value Reference Range Interpretation Comments THROMBOPLASTIN TIME PARTIAL (test 20.6 secs 22-38 L code = PTT) [id number] 19:01:00 Test Item Value Reference Range Interpretation Comments FIBRINOGEN (test code = FIB) 141 mg/dL 309-518 L UA RFLX MICR CULT IF [id number] 12:47:00 Test Item Value Reference Range Interpretation [...] DIPSTICK (test 3+ NEG A code = KELNI) UA PH DIPSTICK (test code 6.0 5-9 [...] RiskForSepsis-no oth srcSpecimen Description: CLEAN CATCHUR HCG [id number] 12:47:00 Test Item Value Reference Range Interpretation [...] Description: CLEAN CATCHUA RFLX MICR CULT IF [id number] 12:36:00 Test Item Value Reference Range Interpretation [...] RiskForSepsis-no oth srcSpecimen Description: CLEAN CATCHUR HCG [id number] 12:36:00 Test Item Value Reference Range Interpretation [...] culture: RiskForSepsis-no oth srcSpecimen Description: CLEAN CATCHPROTHROMBIN [id number] 10:14:00 Test Item Value Reference Range Interpretation Comments PROTHROMBIN TIME PATIENT (test code 13.3 secs 10.4-12.4 H = PTP) THROMBOPLASTIN TIME [id number] 10:14:00 Test Item Value Reference Range Interpretation Comments THROMBOPLASTIN TIME PARTIAL (test 19.4 secs 22-38 L code = PTT) [id number] 10:14:00 Test Item Value Reference Range Interpretation Comments FIBRINOGEN (test code = FIB) 102 mg/dL 309-518 L COMPREHENSIVE METABOLIC [id number] 09:54:00 Test Item Value Reference Range Interpretation [...] units/L 46-116 N code = ALKP) HGB [id number] 06:49:00 Test Item Value Reference Range Interpretation [...]
[2022-04-26 18:24] LABS: Protime INR 1.3
[2022-04-26 18:27] LABS: Absolute Lymphocytes (CBC) 0.2 K/uL (0.7-4.9); Lymphocytes % 2.1 % (15.3-44.8); MCV 84.1 fL (80-100); MPV 8.5 fL (7.6-11.3); RBC Red Blood Cell Count 3.09 M/uL (3.86-4.86)
[2022-04-26 18:33] LABS: Albumin 3.5 g/dL (3.4-5.0); Bilirubin Direct 0.2 mg/dL (0-0.2); Bilirubin Total 0.5 mg/dL (0.2-1.0); Potassium 3.3 mmol/L (3.5-5.1); Protein, Total 7.2 g/dL (6.4-8.2)
--- NOTE | 2022-04-26 18:41 | EDPHYS ---
Physician Documentation [facility] Name: Bri Boyd Age: 36 yrs Sex: Female : 1985 Arrival Date: 04/26/2022 Time: 17:36 Bed 4 Private MD: ED Physician Favio Rock HPI: 04/26 18:23 This 36 yrs old Female presents to ER via EMS with complaints of Rectal Bleeding. sp3 18:23 36-year-old female with longstanding history of Glanzmann's thrombasthenia anemia now sp3 presents with a 4-week history of rectal bleeding. Patient states that she initially thought it was a hemorrhoid and would go away but the bleeding is progressively gotten worse and now she is having near-syncopal episodes and is pale. Yesterday she reports bleeding from her mouth while performing dental care. She denies any headache, neck pain, chest pain, shortness of breath, abdominal pain, vaginal bleeding (she is status post hysterectomy) or any other bleeding sites at this time. EMS in route, patient's blood pressure was in the 80s systolically with heart rate in the 90s. Denies fever or any infectious symptoms.. 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 - Social history:: Smoking status: Patient denies any tobacco usage or history of. ROS: 18:26 Eyes: Negative for injury, pain, redness, and discharge, Neck: Negative for injury, sp3 pain, and swelling, Cardiovascular: Negative for chest pain, palpitations, and edema, Respiratory: Negative for shortness of breath, cough, wheezing, and pleuritic chest pain, Back: Negative for injury and pain, Skin: Negative for injury, rash, and discoloration, Neuro: Negative for headache, weakness, numbness, tingling, and seizure, Psych: Negative for depression, anxiety, suicide ideation, homicidal ideation, and hallucinations, Allergy/Immunology: Negative for hives, rash, and allergies, Endocrine: Negative for neck swelling, polydipsia, polyuria, polyphagia, and marked weight changes, Hematologic/Lymphatic: Negative for swollen nodes, abnormal bleeding, and unusual bruising. Exam: 18:26 Head/Face: Normocephalic, atraumatic. Eyes: Pupils equal round and reactive to light, sp3 extra-ocular motions intact. Lids and lashes normal. Conjunctiva and sclera are non-icteric and not injected. Cornea within normal limits. Periorbital areas with no swelling, redness, or edema. ENT: Nares patent. No nasal discharge, no septal abnormalities noted. External auditory canals are clear. Oropharynx with no redness, swelling, or masses, exudates, or evidence of obstruction, uvula midline. Mucous membranes moist. Neck: Trachea midline, no thyromegaly or masses palpated, and no cervical lymphadenopathy. Supple, full range of motion without nuchal rigidity, or vertebral point tenderness. No Meningismus. Chest/axilla: Normal chest wall appearance and motion. Nontender with no deformity. No lesions are appreciated. Cardiovascular: Regular rate and rhythm with a normal S1 and S2. No gallops, murmurs, or rubs. Normal PMI, no JVD. No pulse deficits. Respiratory: Lungs have equal breath sounds bilaterally, clear to auscultation and percussion. No rales, rhonchi or wheezes noted. No increased work of breathing, no retractions or nasal flaring. Back: No spinal tenderness. No costovertebral tenderness. Full range of motion. MS/ Extremity: Pulses equal, no cyanosis. Neurovascular intact. Full, normal range of motion. Neuro: Awake and alert, GCS 15, oriented to person, place, time, and situation. Cranial nerves II-XII grossly intact. Motor strength 5/5 in all extremities. Sensory grossly intact. Cerebellar exam normal. Normal gait. 18:26 Abdomen/GI: She has soft abdomen nontender nondistended with no peritoneal signs. Positive rectal bleeding is noted. Patient also has ecchymoses/bruising on her bilateral lower extremities. Skin is pale as of the sclera.. Vital Signs: 17:43 BP 96 / 59; Pulse 82; Resp 18; Temp 98.3; Pulse Ox 100% on 2 lpm NC; Weight 72.57 kg; ph Height 5 ft. 6 in. (167.64 cm); 18:33 BP 98 / 54; Pulse 80; Resp 16 S; Pulse Ox 100% on R/A; iw 19:39 BP 103 / 56; Pulse 75; Resp 18; Temp 98.7; Pulse Ox 100% on 2 lpm NC; Pain 8/10; pf1 21:00 BP 108 / 53; Pulse 82; Resp 12 S; Pulse Ox 100% on 2 lpm NC; as6 17:43 Body Mass Index 25.82 (72.57 kg, 167.64 cm) ph MDM: 17:54 Patient medically screened. sp3 18:27 Data reviewed: vital signs, nurses notes. ED course: 36-year-old female with Glanzmann sp3 thrombasthenia presents with recurrent rectal bleeding now for 4 weeks. Given patient's clinical exam, I am highly suspicious for disease related bleeding that will require emergent leukocyte depleted platelet transfusion which I have discussed with the blood bank and 1 multiunit platelet pack has been ordered. Type and screen as well as all blood counts have also been ordered with coagulation profile. Further, PRBCs will be needed in all likelihood but we will wait until counts are back. Patient to be admitted to internal medicine where she has been admitted before and we will manage her in the ED until she is stable for admission.. 18:38 ED course: Hemoglobin came back at 8.3. We will also administer 2 units of leukocyte sp3 reduced PRBCs in addition to the platelets. Patient has been admitted to internal medicine.. 04/26 17:46 Order name: Basic Metabolic Panel; Complete Time: 18:40 sp3 04/26 17:46 Order name: CBC with Diff sp3 04/26 17:46 Order name: Hepatic Function; Complete Time: 18:40 sp3 04/26 17:46 Order name: Protime (+inr); Complete Time: 18:32 sp3 04/26 17:46 Order name: Ptt, Activated; Complete Time: 18:32 sp3 04/26 17:46 Order name: Type And Screen sp3 04/26 17:54 Order name: Bb Add On bd 04/26 18:38 Order name: Bb Add On bd 04/26 18:44 Order name: Packed RBC Leukored EDMS 04/26 18:44 Order name: Platelets, Leukored Pheresis EDMS 04/26 18:55 Order name: SARS RAPID iw 01/10 17:46 Order name: Cardiac monitoring; Complete Time: 18:16 sp3 04/26 17:46 Order name: IV Saline Lock; Complete Time: 18:07 sp3 04/26 17:46 Order name: Labs collected and sent; Complete Time: 18:07 sp3 04/26 17:46 Order name: NPO; Complete Time: 18:16 sp3 04/26 17:46 Order name: O2 Sat Monitoring; Complete Time: 18:07 sp3 Administered Medications: 19:30 Drug: morphine 4 mg Route: IVP; Infused Over: 4 mins; Site: right antecubital; pf1 20:30 Follow up: Response: No adverse reaction; Adverse reaction, Physician notified; Pain is pf1 decreased; RASS: Alert and Calm (0) 19:30 Drug: Zofran (Ondansetron) 4 mg Route: IVP; Site: right antecubital; pf1 21:00 Follow up: Response: No adverse reaction; Marked relief of symptoms pf1 19:30 Drug: NS 0.9% 500 ml Route: IV; Rate: bolus; Site: right antecubital; pf1 20:00 Follow up: IV Status: Completed infusion; IV Intake: 500ml pf1 20:30 Drug: Benadryl (diphenhydrAMINE) 25 mg Route: IVP; Site: right antecubital; pf1 21:00 Follow up: Response: No adverse reaction; Marked relief of symptoms pf1 Disposition Summary: 04/26/22 18:40 Hospitalization Ordered Hospitalization Status: Inpatient Admission sp3 Provider: Mahesh Ramírez3 [facility] ([facility] sp3 Condition: Stable sp3 Problem: an acute exacerbation sp3 Symptoms: have worsened sp3 Bed/Room Type: Standard sp3 Room Assignment: 429(04/26/22 20:55) cg Diagnosis - Glanzmann Thrombasthenia, bleeding sp3 Forms: - Medication Reconciliation Form sp3 - SBAR form sp3 Signatures: Dispatcher [employer] Minda Gamble RN RN ph Garcia, Cindy, RN RN cg Patel, Setul, MD MD sp3 Keerthi Fay PAMacrinaC PABeba [email or web address] Elizabeth maria RN RN pf1 Corrections: (The following items were deleted from the chart) 20:55 18:40 sp3 cg
--- NOTE | 2022-04-26 18:41 | ER ---
Nurse's Notes [facility] Name: Bri Boyd Age: 36 yrs Sex: Female : 1985 Arrival Date: 04/26/2022 Time: 17:36 Bed 4 Private MD: Diagnosis: Glanzmann Thrombasthenia, bleeding Presentation: 04/26 17:43 Chief complaint: EMS states: Pt hx of blood clotting disorder, c/o bright red rectal ph bleeding x approx 4 weeks, reports pain to R shoulder radiating down, hx of multiple blood transfusions, denies abdominal pain. Coronavirus screen: Vaccine status: Patient reports being unvaccinated. Ebola Screen: No symptoms or risks identified at this time. Initial Sepsis Screen: Does the patient meet any 2 criteria? No. Patient's initial sepsis screen is negative. Does the patient have a suspected source of infection? No. Patient's initial sepsis screen is negative. Risk Assessment: Do you want to hurt yourself or someone else? Patient reports no desire to harm self or others. Onset of symptoms was April 26, 2022. 17:43 Method Of Arrival: EMS: [facility] ph 17:43 Acuity: KARIE 2 ph Triage Assessment: 17:46 General: Appears in no apparent distress. Behavior is calm, cooperative, appropriate ph for age. Pain: Complains of pain in right subscapular area. Neuro: Level of Consciousness is awake, alert, obeys commands, Oriented to person, place, time, situation. Cardiovascular: Capillary refill is sluggish Rhythm is sinus rhythm. Respiratory: Airway is patent Respiratory effort is even, unlabored, Respiratory pattern is regular, symmetrical. GI: Reports rectal bleeding. Derm: Skin is pale. Musculoskeletal: Circulation, motion, and sensation intact. Range of motion: intact in all extremities. 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 - Social history:: Smoking status: Patient denies any tobacco usage or history of. Screenin:45 [facility] ED Fall Risk Assessment (Adult) History of falling in the last 3 months, ph including since admission No falls in past 3 months (0 pts) Confusion or Disorientation No (0 pts) Intoxicated or Sedated No (0 pts) Impaired Gait No (0 pts) Mobility Assist Device Used No (0 pt) Altered Elimination No (0 pt) Score/Fall Risk Level 0 - 2 = Low Risk Oriented to surroundings, Maintained a safe environment, Hourly rounding (assess needs \T\ fall precautionary measures) done, Used ambulatory aids as needed (educated on \T\ assisted with). Abuse screen: Denies threats or abuse. Denies injuries from another. Nutritional screening: No deficits noted. Tuberculosis screening: No symptoms or risk factors identified. Assessment: 18:33 Reassessment: Patient appears in no apparent distress at this time. Patient and/or iw family updated on plan of care and expected duration. Pain level reassessed. Patient is alert, oriented x 3, equal unlabored respirations, skin warm/dry/pink. 19:15 General: Appears in no apparent distress. comfortable, well groomed, well developed, pf1 Behavior is calm, cooperative, appropriate for age, quiet. 19:15 Pain: Complains of pain in right subscapular area pain and left lower qaudrant pain of pf1 8. Neuro: No deficits noted. Level of Consciousness is awake, alert, obeys commands, Oriented to person, place, time, situation. Cardiovascular: No deficits noted. Capillary refill < 3 seconds Patient's skin is warm and dry. Respiratory: No deficits noted. Airway is patent Trachea midline Respiratory effort is even, unlabored. GI: No deficits noted. No signs and/or symptoms were reported involving the gastrointestinal system. GI: Abdomen is flat, non-distended, Reports lower abdominal pain, diarrhea, rectal bleeding. : No deficits noted. No signs and/or symptoms were reported regarding the genitourinary system. EENT: No deficits noted. No signs and/or symptoms were reported regarding the EENT system. Derm: No deficits noted. No signs and/or symptoms reported regarding the dermatologic system. 20:40 General: patient platelet transfusion initiated. See paper charting for transfusion. pf1 21:25 General: transfusion completed. Patient going to 429. pf1 Vital Signs: 17:43 BP 96 / 59; Pulse 82; Resp 18; Temp 98.3; Pulse Ox 100% on 2 lpm NC; Weight 72.57 kg; ph Height 5 ft. 6 in. (167.64 cm); 18:33 BP 98 / 54; Pulse 80; Resp 16 S; Pulse Ox 100% on R/A; iw 19:39 BP 103 / 56; Pulse 75; Resp 18; Temp 98.7; Pulse Ox 100% on 2 lpm NC; Pain 8/10; pf1 21:00 BP 108 / 53; Pulse 82; Resp 12 S; Pulse Ox 100% on 2 lpm NC; as6 17:43 Body Mass Index 25.82 (72.57 kg, 167.64 cm) ph ED Course: 17:36 Patient arrived in ED. iw 17:36 Favio Rock MD is Attending Physician. sp3 17:45 Triage completed. ph 17:46 Arm band placed on Patient placed in an exam room, on a stretcher, on oxygen, on ph cardiac sonographer, on pulse oximetry. 17:46 Patient has correct armband on for positive identification. Bed in low position. Call ph light in reach. Side rails up X2. Client placed on continuous cardiac and pulse oximetry monitoring. NIBP monitoring applied. Door closed. Noise minimized. Warm blanket given. 18:07 Nunu Duran, RN is Primary Nurse. iw 18:07 Type And Screen Sent. iw 18:08 Inserted saline lock: 20 gauge in right antecubital area, using aseptic technique. ls5 Blood collected. 18:39 Mahesh Ramírez MD is Hospitalizing Provider. sp3 19:04 SARS RAPID Sent. iw 19:19 Primary Nurse role handed off by Nunu Duran RN mw2 21:13 Elizabeth maria RN is Primary Nurse. pf1 21:32 No provider procedures requiring assistance completed. Patient admitted, IV remains in pf1 place. Administered Medications: 19:30 Drug: morphine 4 mg Route: IVP; Infused Over: 4 mins; Site: right antecubital; pf1 20:30 Follow up: Response: No adverse reaction; Adverse reaction, Physician notified; Pain is pf1 decreased; RASS: Alert and Calm (0) 19:30 Drug: Zofran (Ondansetron) 4 mg Route: IVP; Site: right antecubital; pf1 21:00 Follow up: Response: No adverse reaction; Marked relief of symptoms pf1 19:30 Drug: NS 0.9% 500 ml Route: IV; Rate: bolus; Site: right antecubital; pf1 20:00 Follow up: IV Status: Completed infusion; IV Intake: 500ml pf1 20:30 Drug: Benadryl (diphenhydrAMINE) 25 mg Route: IVP; Site: right antecubital; pf1 21:00 Follow up: Response: No adverse reaction; Marked relief of symptoms pf1 Medication: 17:46 VIS not applicable for this client. ph Intake: 20:00 IV: 500ml; Total: 500ml. pf1 Outcome: 18:40 Decision to Hospitalize by Provider. sp3 21:31 Admitted to Tele accompanied by tech, via wheelchair, room 429, with chart, Report pf1 called to receiving nurse per MCKENZIE Fletcher 21:31 Condition: stable 21:31 Instructed on the need for admit, Demonstrated understanding of instructions. 21:37 Patient left the ED. pf1 Signatures: Nunu Duran RN RN Minda Lara RN RN Massiel Benito 2 Favio Rock MD MD sp3 Chance Leary RN RN as6 Elizabeth maria RN RN pf1 Ruiz Saldivar ls5 Corrections: (The following items were deleted from the chart) 21:37 20:40 General: patient platelet transfusion initiated. pf1 pf1
[2022-04-26] MEDS ORDERED: ONDANSETRON 4 MG/2 ML VIAL ONE (19:21)
[2022-04-26] MEDS ORDERED: DIPHENHYDRAMINE 50 MG/ML VIAL ONE (19:21)
[2022-04-26] MEDS ORDERED: MORPHINE 4 MG/ML SYR ONE (19:21)
[2022-04-26 19:22] LABS: SARS-CoV-2 Antigen Rapid Res Negative (Negative)
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
[2022-04-26] MEDS ORDERED: NA CHLORIDE 0.9% 500 ML ONE ×2 (19:31→20:24)
[2022-04-26 21:40] LABS: Anisocytosis 2+; Blood Morphology Comment NOTED (NOT SEEN); Platelet Estimate DECR; Polychromasia 1+; White Blood Cell Scan OK (OK)
[2022-04-26] MEDS ORDERED: NA CHLORIDE 0.9% 250 ML ONE (22:15)
[2022-04-26] MEDS ORDERED: DIPHENHYDRAMINE 25 MG TAB/CAP ONE (22:16)
[2022-04-26] MEDS ORDERED: ONDANSETRON 4 MG/2 ML VIAL IV PRN (23:12)
[2022-04-26] MEDS ORDERED: DIPHENHYDRAMINE 50 MG/ML VIAL IV ONE (23:12)
[2022-04-26] MEDS ORDERED: ACETAMINOPHEN 500 MG TAB PO PRN (23:12)
[2022-04-27 00:26] VITALS: BMI 25.8
[2022-04-27] MEDS: HYDROMORPHONE HCL 0.5 MG/0.5 ML INJ IV PRN ×2 (01:05→21:12)
[2022-04-27 03:57] LABS: Absolute Lymphocytes (CBC) 0.3 K/uL (0.7-4.9); Hematocrit 24.7 % (36.0-45.0); Lymphocytes % 4.8 % (15.3-44.8); MCV 84.8 fL (80-100); RBC Red Blood Cell Count 2.91 M/uL (3.86-4.86)
[2022-04-27] MEDS: HYDROCODONE/APAP 10/325 TAB PO PRN (10:29)
[2022-04-27 15:04] LABS: Absolute Lymphocytes (CBC) 0.6 K/uL (0.7-4.9); Hematocrit 23.5 % (36.0-45.0); Lymphocytes % 10.3 % (15.3-44.8); MCV 84.3 fL (80-100); MPV 8.7 fL (7.6-11.3); RBC Red Blood Cell Count 2.79 M/uL (3.86-4.86)
[2022-04-27 18:46] LABS: Absolute Lymphocytes (CBC) 0.7 K/uL (0.7-4.9); Hematocrit 23.5 % (36.0-45.0); Lymphocytes % 13.3 % (15.3-44.8); MCV 83.8 fL (80-100); MPV 8.5 fL (7.6-11.3); RBC Red Blood Cell Count 2.81 M/uL (3.86-4.86)
[2022-04-27] MEDS ORDERED: carisoprodoL 350 MG TAB PO PRN (22:34)
[2022-04-27] MEDS: ALPRAZOLAM 0.25 MG TABLET PO PRN (23:05)
[2022-04-28] MEDS: HYDROMORPHONE HCL 0.5 MG/0.5 ML INJ IV PRN ×5 (03:31→19:39)
[2022-04-28 04:06] LABS: Phosphorus 2.8 mg/dL (2.5-4.9); Potassium 3.2 mmol/L (3.5-5.1)
[2022-04-28] MEDS ORDERED: POTASSIUM CL SA 10 MEQ TAB PO ONE (09:00)
[2022-04-28 09:31] LABS: Hematocrit 18.8 % (36.0-45.0)
[2022-04-28] MEDS ORDERED: NA CHLORIDE 0.9% 250 ML ONE ×2 (10:51→16:17)
[2022-04-28] MEDS: DIPHENHYDRAMINE 50 MG/ML VIAL IV PRN ×2 (11:12→16:41)
[2022-04-28] MEDS: PANTOPRAZOLE INJ 80 MG in NA CHLORIDE 0.9% 250 ML IV SCH ×2 (12:20→22:48)
[2022-04-28] MEDS: GABAPENTIN 100 MG CAP PO SCH (20:54)
[2022-04-28] MEDS: ALPRAZOLAM 0.25 MG TABLET PO PRN (20:57)
[2022-04-28 22:14] LABS: Hematocrit 22.3 % (36.0-45.0)
[2022-04-29] MEDS: HYDROMORPHONE HCL 0.5 MG/0.5 ML INJ IV PRN ×6 (01:34→23:35)
[2022-04-29 04:37] LABS: Potassium 3.9 mmol/L (3.5-5.1)
--- NOTE | 2022-04-29 07:30 | P.PN ---
Subjective Date of Service: 04/27/22 Patient with lower GI bleeding. Will transfuse an additional unit. We do not have GI available and patient needs to be transferred to a tertiary care facility. Review of Systems 10-point ROS is otherwise unremarkable Physical Examination - Vital Signs Temperature: 97.2 F Blood Pressure: 92/43 Pulse: 80 Respirations: 18 Pulse Ox (%): 99 - Physical Exam General: Alert, In no apparent distress, Oriented x3 Respiratory: Clear to auscultation bilaterally, Normal air movement Cardiovascular: Regular rate/rhythm, Normal S1 S2 Gastrointestinal: Normal bowel sounds, Soft and benign, Non-distended, No t enderness Musculoskeletal: No tenderness Integumentary: No rashes Neurological: Normal speech, Normal tone, Normal affect - Studies Medications List Reviewed: Yes Assessment & Plan - Problems (Diagnosis) (1) Acute blood loss anemia Current Visit: Yes Status: Acute (2) Glanzmann thromboasthenia Current Visit: Yes Status: Chronic - Plan 1. Continue with IV hydration and PPI drip 2. Continue with IV antibiotics 3. Continue with pain control 4. NPO 5. Transfer to a tertiary care facility as we have no GI available 6. Monitor LFTs and lipase along with electrolytes and serial H&H. 7. GI and DVT prophylaxis Discharge Plan: Home Plan to discharge in: Greater than 2 days - Advance Directives Does patient have a Living Will: No Does patient have a Durable POA for Healthcare: No - Code Status/Comfort Care Code Status: Full Code Physician Review: Patient Assessed, Agree with Above Assessment and Plan Critical Care: No Time Spent Managing PTS Care (In Minutes): 35
--- NOTE | 2022-04-29 07:31 | P.PN ---
Date of Service: 04/29/22 Subjective Patient continues to do well. Clinical symptoms are stable. 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 Continue with IV hydration and PPI drip 2. Continue with IV antibiotics 3. Continue with pain control 4. NPO 5. Transfer to a tertiary care facility as we have no GI available 6. Monitor LFTs and lipase along with electrolytes and serial H&H. 7. GI and DVT prophylaxis
--- NOTE | 2022-04-29 07:31 | P.PN ---
Date of Service: 04/28/22 Subjective Patient still was melanotic stools. CT scan was which revealed possible proctitis. Patient also with bruising along the vaginal region. Patient states she has had no trauma there. No injury. She did have some bruising when she was sitting on the toilet and she noticed that she is been bleeding really easily. But no vaginal bleeding noted. Recently had a hysterectomy. 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 Continue with IV hydration and PPI drip 2. Continue with IV antibiotics 3. Continue with pain control 4. NPO 5. Transfer to a tertiary care facility as we have no GI available 6. Monitor LFTs and lipase along with electrolytes and serial H&H. 7. GI and DVT prophylaxis
[2022-04-29] MEDS: NA CHLORIDE 0.9% 1,000 ML IV SCH (08:43)
[2022-04-29] MEDS: PANTOPRAZOLE INJ 80 MG in NA CHLORIDE 0.9% 250 ML IV SCH ×3 (08:43→21:23)
[2022-04-29] MEDS: HYDROCODONE/APAP 10/325 TAB PO PRN (08:59)
[2022-04-29] MEDS ORDERED: POTASSIUM CL SA 10 MEQ TAB PO ONE (09:00)
[2022-04-29] MEDS ORDERED: NA CHLORIDE 0.9% 250 ML ONE (10:46)
[2022-04-29] MEDS: DIPHENHYDRAMINE 50 MG/ML VIAL IV PRN (10:58)
--- NOTE | 2022-04-29 12:31 | RAD REPORT ---
EXAM DESCRIPTION: CT Angiography Abdomen and Pelvis With Intravenous Contrast CLINICAL HISTORY: The patient is 36 years old and is Female; eval abd bleeding TECHNIQUE: Axial computed tomographic angiography images of the abdomen and pelvis with intravenous contrast. Sagittal and coronal reformatted images were created and reviewed. This CT exam was per formed using one or more of the following dose reduction techniques: automated exposure control, ad justment of the mA and/or kV according to patient size, and/or use of iterative reconstruction techni que. MIP reconstructed images were created and reviewed. COMPARISON: CT of the abdomen and pelvis March 22, 2022 FINDINGS: VASCULATURE: AORTA: No acute findings. No abdominal aortic aneurysm. No dissection. CELIAC TRUNK AND MESENTERIC ARTERIES: No acute findings. No occlusion or significant stenosis. RENAL ARTERIES: No acute findings. No occlusion or significant stenosis. ILIAC ARTERIES: No acute findings. No occlusion or significant stenosis. LUNG BASES: Unremarkable. No mass. No consolidation. ABDOMEN: LIVER: 2 low attenuating lesions within the liver are redemonstrated. Subtle nodular discontinuo us contrast enhancement is suggested. These are present on multiple prior exams and likely represent hemangiomas. The liver is otherwise homogeneous. GALLBLADDER AND BILE DUCTS: Unremarkable. No calcified stones. No ductal dilation. PANCREAS: Unremarkable. No ductal dilation. No mass. SPLEEN: The spleen is mildly enlarged and heterogeneous. ADRENALS: Unremarkable. No mass. KIDNEYS AND URETERS: Unremarkable. No hydronephrosis. No solid mass. STOMACH AND BOWEL: The stomach is distended with food contents. The small bowel is normal in frank iber. Stool is present throughout colon. Colonic wall thickening with surrounding inflammatory strand ing involving the rectosigmoid colon is present. PELVIS: APPENDIX: No findings to suggest acute appendicitis. BLADDER: Unremarkable. No mass. REPRODUCTIVE: The patient is status post hysterectomy. ABDOMEN and PELVIS: INTRAPERITONEAL SPACE: Trace free fluid is present within the pelvis. No free air. BONES/JOINTS: Minimal degenerative change at L4-L5 is noted. There is no acute fracture. No di slocation. SOFT TISSUES: Extensive edema with associated inflammatory stranding involving the right labia m ajora is present. A 4.2 x 2.4 cm high density collection within the soft tissues of the medial righ t buttock near the gluteal fold is present. Evidence of midline abdominal incision is noted. LYMPH NODES: Unremarkable. No enlarged lymph nodes. IMPRESSION: 1. No evidence of vascular abnormality on this CTA of the abdomen and pelvis. 2. Extensive edema and inflammation involving the right labia majora with questionable hematoma melita ng the right medial inferior quadrant near the gluteal fold. Correlation with patient's history, spec ifically history of recent trauma. 3. Mild mucosal thickening with surrounding inflammation involving the rectum which may be secondar y to proctitis. Electronically signed by: Sharon Deluca MD 04/29/2022 3:13 AM SPORTS DIRECTOR Due to temporary technical issues with the PACS/Fluency reporting system, reports are being signed by the in house radiologists without review as a courtesy to insure prompt reporting. The interpreting radiologist is fully responsible for the content of the report.
[2022-04-29 16:28] LABS: Hematocrit 21.5 % (36.0-45.0)
[2022-04-29] MEDS ORDERED: ALBUMIN HUMAN 25% 100 ML IV ONE (18:00)
[2022-04-29] MEDS: GABAPENTIN 100 MG CAP PO SCH (21:01)
[2022-04-30] MEDS: NA CHLORIDE 0.9% 1,000 ML IV SCH ×3 (02:43→23:18)
[2022-04-30] MEDS: HYDROMORPHONE HCL 0.5 MG/0.5 ML INJ IV PRN ×4 (03:35→20:01)
[2022-04-30] MEDS: PANTOPRAZOLE INJ 80 MG in NA CHLORIDE 0.9% 250 ML IV SCH ×3 (04:48→20:23)
[2022-04-30 07:34] LABS: Lymphocytes % 34.6 % (15.3-44.8); MCV 87.3 fL (80-100); MPV 8.8 fL (7.6-11.3); RBC Red Blood Cell Count 2.19 M/uL (3.86-4.86)
[2022-04-30 07:36] LABS: Potassium 3.7 mmol/L (3.5-5.1)
[2022-04-30 07:40] LABS: Hematocrit 19.1 % (36.0-45.0)
[2022-04-30] MEDS ORDERED: NA CHLORIDE 0.9% 250 ML IV PRN (08:18)
[2022-04-30 08:56] LABS: Anisocytosis 2+; Blood Morphology Comment NOTED (NOT SEEN); Hypochromasia 3+; Macrocytosis 1+; Platelet Estimate DECR; White Blood Cell Scan OK (OK)
[2022-04-30 08:57] LABS: Stomatocytes 1+; Teardrop Cell FEW
[2022-04-30] MEDS ORDERED: NA CHLORIDE 0.9% 250 ML IV SCH ×2 (09:00→16:00)
[2022-04-30] MEDS: DIPHENHYDRAMINE 50 MG/ML VIAL IV PRN ×2 (10:59→17:23)
[2022-04-30] MEDS ORDERED: DIPHENHYDRAMINE 50 MG/ML VIAL IV ONE (18:05)
[2022-04-30] MEDS: HYDROCODONE/APAP 10/325 TAB PO PRN (18:10)
[2022-04-30 19:24] LABS: MPV 9.3 fL (7.6-11.3)
--- NOTE | 2022-04-30 19:59 | P.PN ---
Date of Service: 04/30/22 Subjective Patient continues to bleed. Melanotic stools and bright red blood per rectum. Unable to get transferred to [facility] as she does not have insurance so we are waiting for bed availability at [facility]. We were told that they have a bed available yesterday but unfortunately she was not able to get transferred. [facility] ICU beds were more readily available yet we still do not have bed availability. Will continue to contact them and hopefully we can get her transferred out before her clinical condition deteriorates even more. 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 Continue with IV hydration and PPI drip 2. Continue with IV antibiotics 3. Continue with pain control 4. NPO 5. Transfer to a tertiary care facility as we have no GI available 6. Monitor LFTs and lipase along with electrolytes and serial H&H. 7. GI and DVT prophylaxis
[2022-04-30] MEDS: GABAPENTIN 100 MG CAP PO SCH (20:01)
[2022-04-30] MEDS: ALPRAZOLAM 0.25 MG TABLET PO PRN (21:41)
[2022-04-30 23:47] LABS: Hematocrit 27.4 % (36.0-45.0)
[2022-05-01] MEDS: HYDROMORPHONE HCL 0.5 MG/0.5 ML INJ IV PRN ×6 (00:09→20:26)
[2022-05-01] MEDS: PANTOPRAZOLE INJ 80 MG in NA CHLORIDE 0.9% 250 ML IV SCH ×2 (06:39→16:18)
[2022-05-01 07:34] LABS: Absolute Lymphocytes (CBC) 0.8 K/uL (0.7-4.9); Hematocrit 24.8 % (36.0-45.0); Lymphocytes % 14.7 % (15.3-44.8); MCV 88.2 fL (80-100); MPV 9.5 fL (7.6-11.3); RBC Red Blood Cell Count 2.81 M/uL (3.86-4.86)
[2022-05-01 07:35] LABS: Protime INR 1.17
[2022-05-01] MEDS ORDERED: INFLUENZA VACCINE (for 6+ mo) 0.5 ML DOSE IMVAC ONE (08:00)
[2022-05-01 08:01] LABS: Albumin 2.9 g/dL (3.4-5.0); Bilirubin Total 0.5 mg/dL (0.2-1.0); Phosphorus 2.7 mg/dL (2.5-4.9); Potassium 3.9 mmol/L (3.5-5.1)
[2022-05-01] MEDS: HYDROCODONE/APAP 10/325 TAB PO PRN ×2 (11:34→17:55)
[2022-05-01] MEDS: NA CHLORIDE 0.9% 1,000 ML IV SCH (11:59)
--- NOTE | 2022-05-01 15:53 | P.PN ---
Date of Service: 05/01/22 Subjective 36-year-old female who is well-known to me from multiple prior admissions. She came to the hospital with lower GI bleeding. She recently had a hysterectomy a few months ago at [facility] in [place]. At that time she required multiple transfusions after the surgery as she had internal bleeding. She was in the hospital for a few weeks before she was discharged home. She presents to the hospital here with lower GI bleeding. Patient had bright red blood per rectum initially. Now she is also having melanotic stools. We started her on Protonix. We will add octreotide today and see if that helps her. We have been trying to transfer her for a few days but we are unsuccessful. If she is still not transferred by tomorrow we will have gastroenterology available and we will consult them in the morning if patient is still at our facility. We will continue to monitor H&H closely. Mild coa gulopathy. Continue with n.p.o. Lets wait for transfer to tertiary care facility for further intervention. 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 Continue with IV hydration and PPI drip; add octreotide 2. Continue with IV antibiotics 3. Continue with pain control 4. NPO 5. Transfer to a tertiary care facility as we have no GI available 6. GI and DVT prophylaxis
[2022-05-01 16:44] LABS: Absolute Lymphocytes (CBC) 0.8 K/uL (0.7-4.9); Hematocrit 22.7 % (36.0-45.0); Lymphocytes % 12.4 % (15.3-44.8); MCV 89.3 fL (80-100); MPV 9.2 fL (7.6-11.3); RBC Red Blood Cell Count 2.54 M/uL (3.86-4.86)
[2022-05-01] MEDS ORDERED: OCTREOTIDE 500 MCG in NA CHLORIDE 0.9% 500 ML IV SCH (17:00)
[2022-05-01] MEDS: DIPHENHYDRAMINE 50 MG/ML VIAL IV PRN (17:51)
[2022-05-01 18:22] VITALS: TEMP 97.8
[2022-05-01 18:23] LABS: Blood Morphology Comment NOT SEEN (NOT SEEN); Platelet Estimate DECR; White Blood Cell Scan OK (OK)
[2022-05-01 20:14] VITALS: BP 120/66
[2022-05-01 20:21] VITALS: O2SAT 98
[2022-05-01] MEDS: GABAPENTIN 100 MG CAP PO SCH (20:28)
[2022-05-01] MEDS ORDERED: CEFTRIAXONE 1,000 MG in NA CHLORIDE 0.9% 50 ML IVPB SCH (21:00)
[2022-05-01] MEDS: ALPRAZOLAM 0.25 MG TABLET PO PRN (21:19)
[2022-05-01] MEDS ORDERED: HYDROMORPHONE HCL 0.5 MG/0.5 ML INJ IV ONE (21:35)
--- NOTE | 2022-05-01 23:25 | P.DS ---
Admission Date: 04/26/22 Discharge Date: 05/01/22 Disposition: TRANSFER TO [facility] Discharge Condition: FAIR Reason for Admission: Anemia - Problems (1) Acute blood loss anemia Status: Acute (2) Glanzmann thromboasthenia Status: Chronic Brief History of Present Illness: Patient is a 36-year-old female with past medical history of Glanzmann thrombasthenia and chronic iron deficiency anemia who presented to the ED with complaints of rectal bleeding x 4 weeks now associated with bruising and fatigue. She also reports some oral bleeding. She states the blood is mostly on the toilet paper and not in her stool, and is bright red. Denies any hematemsis. Patient typically is anemic secondary to vaginal bleeding but she did have a hysterectomy 5 months ago. Today, her hemoglobin is 8.3, hematocit 26, platelets 100. ED provider ordered 2 units PRBC and 1 unit platelets. She will be admitted for further management. Hospital Course: Patient had bright red blood per rectum initially then started having melanotic stools. H&H continued continued to drop despite 7 units of PRBC and 2 units platelets. She was started on Protonix and octreotide drips. She was eventually accepted to [facility] in the [facility] for further intervention with GI services. Vital Signs/Physical Exam: Temp Pulse Resp BP Pulse Ox 97.8 F 66 15 120/66 99 05/01/22 16:00 05/01/22 20:00 05/01/22 20:00 05/01/22 20:00 05/01/22 20:00 General: Alert, In no apparent distress HEENT: Atraumatic, Normocephalic Neck: Supple, 2+ carotid pulse no bruit Respiratory: Normal air movement Cardiovascular: Regular rate/rhythm Gastrointestinal: Soft and benign, Non-distended Laboratory Data at Discharge: WBC 6.50 K/uL (4.3-10.9) 05/01/22 16:02 Hgb 7.3 g/dL (12.0-15.0) L D 05/01/22 16:02 Hct 22.7 % (36.0-45.0) L 05/01/22 16:02 Plt Count 91 K/uL (152-406) L* 05/01/22 16:02 PT 12.9 SECONDS (9.5-12.5) H 05/01/22 07:00 INR 1.17 05/01/22 07:00 APTT 19.9 SECONDS (24.3-36.9) L 05/01/22 07:00 Sodium 142 mmol/L (136-145) 05/01/22 07:00 Potassium 3.9 mmol/L (3.5-5.1) 05/01/22 07:00 BUN 17 mg/dL (7-18) 05/01/22 07:00 Creatinine 0.34 mg/dL (0.55-1.02) L 05/01/22 07:00 Glucose 112 mg/dL (74-106) H 05/01/22 07:00 Phosphorus 2.7 mg/dL (2.5-4.9) 05/01/22 07:00 Magnesium 2.0 mg/dL (1.6-2.4) 05/01/22 07:00 Total Bilirubin 0.5 mg/dL (0.2-1.0) 05/01/22 07:00 AST 15 U/L (15-37) 05/01/22 07:00 ALT 15 U/L (13-56) 05/01/22 07:00 Alkaline Phosphatase 48 U/L (45-117) 05/01/22 07:00 Home Medications: Carisoprodol [Soma] 30 tab PO DAILY PRN 09/18/21 Gabapentin 1 cap PO BEDTIME 09/18/21 Hydrocodone Bit/Acetaminophen [Hydrocodon-Acetaminophn 10-325] 10 tab PO QID PRN 09/18/21 Cyanocobalamin/Cobamamide [Vitamin B-12 5,000 Mcg Tab Sl] 1 each SL DAILY #30 tab.subl 09/19/21 Ferrous Sulfate [Ferrous Sulfate Elixir] 5 ml PO TID #500 ml 09/19/21 Physician Discharge Instructions: Protonix 8mg/hr IV drip Diet: NPO Followup: NONE,NONE [Primary Care Provider] - Physician Review: Patient Assessed, Agree with Above Assessment and Plan Time spent managing pt's care (in minutes): 10
[2022-05-02] MEDS ORDERED: METRONIDAZOLE 500mg IVPB 500 MG/100 ML BAG IV SCH (01:00)
== END 2022-05-01 21:34 | disposition short-term general hospital (02) | DRG 378 ==
LOC: ER 17:30 → ERHOLD 19:23 → 4TH 20:57 → 3RD-ICU 04-30 16:33
PROVIDERS: ADMIT Hospitalist; ATTEND Hospitalist
PROC: 30233N1 Transfusion of Nonautologous Red Blood Cells into Peripheral Vein, Percutaneous Approach (ICD-10-PCS; principal; 2022-04-26)
PROC: 30233R1 Transfusion of Nonautologous Platelets into Peripheral Vein, Percutaneous Approach (ICD-10-PCS; 2022-04-26)
DX: K92.1 Melena (principal); D62 Acute posthemorrhagic anemia; D68.9 Coagulation defect, unspecified; D69.1 Qualitative platelet defects; Z88.8 Allergy status to other drugs, medicaments and biological substances; Z88.6 Allergy status to analgesic agent; Z90.49 Acquired absence of other specified parts of digestive tract; Z79.899 Other long term (current) drug therapy; Z90.710 Acquired absence of both cervix and uterus; Z20.822 Contact with and (suspected) exposure to COVID-19
CPT/HCPCS: 36415; 36430; 74174; 80048; 80053; 80076; 82607; 82747; 83540; 83735; 83880; 84100; 84132; 84466; 85014; 85018; 85025; 85044; 85049; 85610; 85730; 86850; 86900; 86901; 86922; 87811; 96374; 96375; 99285; C9113; J1170; J1200; J2354; J2405; J7030; J7040; J7050; P9016; P9035; P9047; P9073; P9100; Q9967

== ENCOUNTER 2023-02-13 19:53 | Emergency (ER) | payer SELFPAY ==
--- OUTSIDE RECORDS SUMMARY | 2023-02-13 20:04 | XMS REPORT | Continuity of Care Document ---
:1985 Author Organization [facility] t Address [address] [facility] [address] [place] [address] Care Team Providers Name Role Phone Roger Rimma MARIEE Primary Care Physician FLORENCIO LR Attending Clinician Unavailable Be SANDRA, Florencio Greenwood Attending Clinician Casey Cummins Attending Clinician Unavailable [email or web address]_S Attending Clinician Unavailable TONY MACK Attending Clinician Unavailable Jd Shirley MD Attending Clinician [phone] Alfredo SANDRA, Priti Carl Attending Clinician [phone] Tony Mack MD Attending Clinician Wenceslao SANDRA, Rosy Ceja Attending Clinician Gilbert SANDRA, Maria Hill Attending Clinician Slime SANDRA, Hernesto Mccurdy Attending Clinician Du Andrade CRNA Attending Clinician [phone] Po RINCON, Inga Greer Attending Clinician Claudy MARIEE, Ruthy Attending Clinician NICOLE SHANKS Attending Clinician Unavailable Pgy3 Attending Clinician Unavailable Jose Manuel CARLOS, Sandi Attending Clinician Doctor Unassigned, [place] Attending Clinician Unavailable NGOC QUINTEROS Attending Clinician Unavailable Aldair SANDRA, Ngoc Monroe Attending Clinician Wilber SANDRA, Judi Steel Attending Clinician Delonte RINCON, Johanny Attending Clinician Unavailable Caren SANDRA, Chanel Moss Attending Clinician Jerod RINCON, Erma Monroe Attending Clinician Matias Cruz MD Attending Clinician MATIAS CRUZ Attending Clinician Unavailable RUTHY LOCO Attending Clinician Unavailable Nicole Chappell Attending Clinician Unavailable DEBRA LÓPEZ Attending Clinician Unavailable Bird Reis DO Attending Clinician Misael RINCON, Aracelis Attending Clinician Unavailable Samuel RINCON, Melinda Gillette Attending Clinician Unavailable Peggy SANDRA, Jesse Monroe Attending Clinician [facility], [facility] Attending Clinician Unavailable Angela [facility], Allie C Attending Clinician [phone] Roger CASTILLOP, Rimma Guadalupe Attending Clinician Won SANDRA, Gilson Wren Attending Clinician [phone] Rocío SANDRA, Alla Lion Attending Clinician Syd CASTILLOP, Max [place]field Attending Clinician Dl SANDRA, Ree Attending Clinician Ultrasound, ShanMfkings Attending Clinician Unavailable Mila Ferguson Attending Clinician Risk, [facility]High Attending Clinician Unavailable Pool, [facility] Attending Clinician Unavailable Teresa SANDRA, Inga Chowdary Attending Clinician Eduardo SANDRA, Chacorta Abrams Attending Clinician 2, [facility] Us Room Attending Clinician Unavailable Aries SANDRA, Ruba Attending Clinician Faculty, Ad Beachjayesh [facility] Attending Clinician Unavailable Emy BELKIS, Marycruz Mac Attending Clinician Nickolas SANDRA, Lorrie Quezada Attending Clinician Kyle Cordero Attending Clinician Calvin Patel Attending Clinician 5, [facility] Room Attending Clinician Unavailable Alison Reis MD Attending Clinician Modesto De La Rosa MD Attending Clinician Vidhi Woodall MD Attending Clinician FLORENCIO LR Admitting Clinician Unavailable Casey Cummins Admitting Clinician Unavailable GC_GCBZW_Kadiyala_S Admitting Clinician Unavailable ROSY DERAS Admitting Clinician Unavailable NGOC QUINTEROS Admitting Clinician Unavailable Ngoc Quinteros MD Admitting Clinician MATIAS CRUZ Admitting Clinician Unavailable Matias Cruz MD Admitting Clinician Be SANDRA, Florencio Greenwood Admitting Clinician Nicole Chappell Admitting Clinician Unavailable Jesse Woods MD Admitting Clinician Dl SANDRA, Ree Admitting Clinician Nickolas SANDRA, Lorrie Quezada Admitting Clinician Payers Payer Name Policy Type Policy Number Effective Date Expiration Date Amisha navarro [facility] [[email or web address] CASEBOOK [id number] 2021 2022 00:00:00 00:00:00 [facility] [id number] 2018 CHOICE MEDICAID 00:00:00 Problems Condition Condition Condition Status Onset Resolution Last Treating Co mments Source Name Details Category Date Date Treatment Clinician Date Glanzmann Glanzmann Disease Recurre [facility] thrombasth thrombasth nce 1-16 Ashley ordaz 00:00: Medical 00 Center Acute Acute Disease Active Univers blood loss blood loss 6-22 it y of anemia anemia 00:00: [place] 00 Medical Branch Menorrhagi Menorrhagi Disease Active U nivers a with a with 6-13 [place] irregular irregular [place] Anemia Anemia Disease Active Univers 5-10 ity of 00:00: [place] 00 Medical Branch Abnormal Abnormal Disease Active 2018-04 Unive rs TSH TSH 0-18 ity of 00:00: [place] 00 Medical Branch Fatty Fatty Disease Active 2018-04 Univers liver liver 0-18 ity of 00:00: [place] 00 Medical Branch Other Other Disease Active 2018-04 Univers fatigue fatigue 0-18 ity of 00:00: [place] 00 Medical Branch Severe Severe Disease Active Univers [...] participa te in a research study entitled: Sarkis recio Confirmed versus Conventio virgie Stoner g Process. Patient randomize d to Study group C. Sarkis recio consent to be completed prior to arrival to Labor and delivery for schedule section. Upon arrival to L&D patient will receive regular paper consent from health care provider. Research staff will give the patient a study questionlizbet henry before discharge home. Patient will remain in the study until completio n of questionlizbet henry. Delivery samples do not need to be collected . Please page the Research Departmen t. If you should have questions or concerns, you may page the PRD at . Disease Active U nivers anemia anemia 8-05 ity of 00:00: [place] Medical Branch Obesity Obesity Disease Active Univers (BMI (BMI 7-08 ity of 30-39.9) 30-39.9) 00:00: [place] [facility] Rubella Rubella Disease Active Univers non-immune non-immune 6-25 it y of status, status, 00:00: [place] antepartum antepartum 00 Me dical Branch ASCUS [...] nivers y y 2-12 ity of 00:00: [place] [facility] History of History of Disease Active Overview : Univers 2-12 Formattin ity of section section 00:00: g of this [place] 00 note Medical might be Branch different [...] back Disease Active Unive rs pain pain 1-01 ity of 00:00: [place] [facility] Allergies, Adverse Reactions, Alerts Allergy Allergy Status Severity Reaction(s) Onset Inactive Treating Comm ents Source Name Type Date Date Clinician Aspirin Propensi Active [facility] adverse 00:[facility]: Medical reaction 00 Center s Iron Propensi Active Anaphylaxis IV only [facility] 1-15 [facility] take [facility] adverse 00:00: Oral Medical reaction 00 Center s Penicill Propensi Active [facility] to 15 [facility] adverse 00:00: Medical reaction 00 Center s PENICILL Allergy Active [facility] INS 05-01 00:00: 00 ASPIRIN Allergy Active [facility] 05-01 00:00: 00 NSAIDS Allergy Active [facility] (NON-[facility] 15 ROIDAL 00:00: ANTI-INF 00 LAMMATOR Y DRUG) IRON Allergy Active High Anaphylaxis [facility] 15 00:00: 00 NSAIDS DA Active SV BLOOD [facility] (Non-[place] 1-18 Woman' s roidal DISORDER 00:00: [facility]osp[facility] Anti-Inf 00 l of lamma [place] iron DA Active U UNKNOWN [facility] -18 Woman's 00:00: [facility]ospita 00 l of [place] [...] reaction 00 disorder. Medic al s Branch NO KNOWN Allergy Active [facility] ALLERGIE S Family History Family Member Diagnosis Comments Start Date Stop Date Source Natural father Colon cancer [facility] Natural father Diabetes [facility] Natural mother Cancer [facility] Social History Social Habit Start Date Stop Date Quantity Comments Source Sexual orientation Univer s[facility] of [facility] Alcohol intake 2022-05-04 2022-05-04 Ex-drinker DELMY Vazquez es 00:00:00 00:00:00 (finding) [facility] Tobacco use and 2022-05-02 2022-05-02 Smokeless DELMY [place] exposure 00:00:00 00:00:00 tobacco non-user [facility] History of Social 2021-10-06 2021-10-06 Univers ity of function 00:00:00 00:00:00 [facility] Exposure to 2021-09-25 2021-10-05 Not sure University SARS-CoV-2 (event) 00:00:00 09:00:00 [facility] Education 2021-08-24 2021-08-24 14 University of 00:00:00 00:00:00 [facility] Tobacco Comment 2018-05-29 2018-05-29 1 pack per week; Uni versity of 00:00:00 00:00:00 quit 2015 [facility] Cigarettes smoked 2018-05-29 2018-05-29 Univers ity of current (pack per 00:00:00 00:00:00 [facility] ) - Reported [place] Cigarette 2018-05-29 2018-05-29 University of pack-years 00:00:00 00:00:00 [facility] History of tobacco 2015-06-21 Cigarette Smoker University of use 00:00:00 [facility] Sex Ass[birth year] At [birth year] F DELMY Carlton 00:00:00 00:00:00 [facility] Smoking Status Start Date Stop Date Source Never smoked tobacco [facility] Ex-smoker 2018-05-29 00:00:00 2018-05-29 00:00:00 Universi ty [facility] Medications Ordered Filled Start Stop Current Ordering Indication Dosage Frequency Signature Comments Components Source Medication Medication Date Date Medication? Clinician (SIG) Name Name HYDROcodone 2022- No 1{tbl} Take [address] -acetaminop 1-20 -20 tablet by Ashley avila (NORCO 10:46: 00:00 mouth Medic al 10-325) 42 :00 every 6 Center 10-325 mg (six) per tablet hours as needed for Pain. gabapentin 2022- No 100mg QD Take [address] (NEURONTIN) 1-20 01-20 mg by [facility] 100 MG 10:46: 00:00 mouth Medical capsule 42 :00 nightly. Center ferrous 2022- No iron 220mg QD Take [address] sulfate 220 1-20 01-20 deficiency mg by [facility] mg (44 mg 10:46: 00:00 anemia mouth Medi frank iron)/5 mL 42 :00 daily. Center solution HYDROcodone 2022- No 1{tbl} Take [address] -acetaminop 1-20 01-20 tablet by Ashley avila (NORCO 10:46: 00:00 mouth Medic al 10-325) 42 :00 every 6 Center 10-325 mg (six) per tablet hours as needed for Pain. gabapentin 2022- No 100mg QD Take [address] (NEURONTIN) 1-20 01-20 mg by [facility] 100 MG 10:46: 00:00 mouth Medical capsule 42 :00 nightly. Center ferrous 2022- No iron 220mg QD Take [address] sulfate 220 1-20 01-20 deficiency mg by [facility] mg (44 mg 10:46: 00:00 anemia mouth Medi frank iron)/5 mL 42 :00 daily. Center solution ferrous Yes iron 220mg QD Take [address] sulfate 220 1-20 deficiency (220 mg [facility] mg (44 mg 00:00: anemia total) by edical iron)/5 mL 00 mouth Center solution daily. HYDROcodone Yes 1{tbl} Take [address] -acetaminop 1-20 tablet by Kristina avila (NORCO 00:00: mouth Medica l 10-325) 00 every 8 Center 10-325 mg (eight) per tablet hours as needed for Pain. Max Daily Amount: 3 tablets ferrous Yes iron 220mg QD Take [address] sulfate 220 1-20 deficiency (220 mg [facility] mg (44 mg 00:00: anemia total) by edical iron)/5 mL 00 mouth Center solution daily. HYDROcodone Yes 1{tbl} Take [address] -acetaminop 1-20 tablet by Kristina arteaga hen (NORCO 00:00: mouth Medica l 10-325) 00 every 8 Center 10-325 mg (eight) per tablet hours as needed for Pain. Max Daily Amount: 3 tablets pantoprazol 2022-0 2022- No 40mg Q.5D Take [address] e 05-06- tablet (40 [facility] (PROTONIX) 00:00: 23:59 mg total) M edical 40 MG 00 :00 by mouth 2 Center tablet (two) times daily for 60 days. pantoprazol 2022-0 2022- No 40mg Q.5D Take [address] e 05-06- tablet (40 [facility] (PROTONIX) 00:00: 23:59 mg total) M edical 40 MG 00 :00 by mouth 2 Center tablet (two) times daily for 60 days. gabapentin 2022-0 2022- No 300mg QD Take [address] (NEURONTIN) 05-06 capsule Luke s 300 MG 00:00: 23:59 (300 mg Medical capsule 00 :00 total) by Center mouth nightly for 30 days. gabapentin 2022-0 2022- No 300mg QD Take [address] (NEURONTIN) 05-06 capsule Luke s 300 MG 00:00: 23:59 (300 mg Medical capsule 00 :00 total) by Center mouth nightly for 30 days. ondansetron 2022-0 2022- No 4mg Take [address] (ZOFRAN-ODT 05-0627 tablet (4 Ashley kes ) 4 MG 00:00: 23:59 mg total) Medic al disintegrat 00 :00 by mouth Cent er ing tablet every 8 (eight) hours as needed for up to 7 days. aminocaproi 2022-0 2022- No 2000mg Take 2,[address] c acid 05-06-27 mg by [facility] 1,000 mg 00:00: 23:59 mouth Medical Tab 00 :00 every 8 Center (eight) hours for 7 days. ondansetron 2022-0 2022- No 4mg Take [address] (ZOFRAN-ODT 05-06-27 tablet (4 Ashley kes ) 4 MG 00:00: 23:59 mg total) Medic al disintegrat 00 :00 by mouth Cent er ing tablet every 8 (eight) hours as needed for up to 7 days. aminocaproi 2022-0 2023- No 2000mg Take 2,[address] c acid 1-20 01-27 mg by [facility] 1,000 mg 00:00: 23:59 mouth Medical Tab 00 :00 every 8 Center (eight) hours for 7 days. aminocaproi 2023-0 2023- No 2000mg Take 2,[address] c acid 1-20 01-20 mg by [facility] 1,000 mg 00:00: 00:00 mouth Medical Tab 00 :00 every 8 Center (eight) hours for 7 days. aminocaproi 2023-0 2023- No 2000mg Take 2,[address] c acid 1-20 01-20 mg by [facility] 1,000 mg 00:00: 00:00 mouth Medical Tab 00 :00 every 8 Center (eight) hours for 7 days. cyanocobala 2023-0 2023- No 1000ug QD Take 1,[address] min 1-17 01-16 mcg by [facility] (vitamin 18:15: 00:00 mouth Medical B-12) 1000 58 :00 daily. Center MCG tablet cyanocobala 2023-0 2023- No 1000ug QD Take 1,[address] min 1-17 01-16 mcg by [facility] (vitamin 18:15: 00:00 mouth Medical B-12) 1000 58 :00 daily. Center MCG tablet ferrous 2022-0 Yes 300mg 300 mg, Univer s sulfate 300 6-29 Oral, ity of mg (60 mg 00:58: Q48H, [place] iron)/5 mL 00 First dose Med ical solution (after Branch 300 mg last modificati on) on Mon10/12/21 at 1999, Until Discontinu ed, Routine ferrous 2022-0 Yes 300mg 300 mg, Univer s sulfate 300 6-29 Oral, ity of mg (60 mg 00:58: Q48H, [place] iron)/5 mL 00 First dose Med ical solution (after Branch 300 mg last modificati on) on Mon10/12/21 at 1999, Until Discontinu ed, Routine polyethylen 2022-0 Yes [id number] 17g Take 1 Univers e glycol 6-29 Packet by ity of 3350 17 00:00: mouth [place] gram powder 00 daily. Medica l Branch polyethylen 2022-0 Yes [id number] 17g Take 1 Univers e glycol 6-29 Packet by ity of 3350 17 00:00: mouth [place] gram powder 00 daily. Medica l Branch polyethylen Yes [id number] 17g Take 1 Univers e glycol 6-29 Packet by ity of 3350 17 00:00: mouth [place] gram powder 00 daily. Medica l Branch polyethylen Yes [id number] 17g Take 1 Univers e glycol 6-29 Packet by ity of 3350 17 00:00: mouth [place] gram powder 00 daily. Medica l Branch polyethylen Yes [id number] 17g Take 1 Univers e glycol 6-29 Packet by ity of 3350 17 00:00: mouth [place] gram powder 00 daily. Medica l Branch polyethylen Yes [id number] 17g Take 1 Univers e glycol 6-29 Packet by ity of 3350 17 00:00: mouth [place] gram powder 00 daily. Medica l Branch polyethylen Yes [id number] 17g Take 1 Univers e glycol 6-29 Packet by ity of 3350 17 00:00: mouth [place] gram powder 00 daily. Medica l Branch polyethylen Yes [id number] 17g Take 1 Univers e glycol 6-29 [...] EVERY DAY NEEDED FOR PAIN. HYDROmorpho 2021-0 2- No .3mg 0.3 mg, Un brayden ne 6-28 06-28 Slow IV ity of (DILAUDID) 00:36: 01:21 Push, [place] injection 44 :00 Q6HPRN, 1 Medic al 0.3 mg dose, Branch Starting on Mon10/11/21 at 1936, Until Mon10/11/21 at 2020, Routine, Pain (scale 7-10)
U se approved by (Faculty): [facility] gabapentin Yes [id number] 300mg Take 1 Univers 300 mg 6-28 [...] 20 doses. Indication s: acute pain methocarbam Yes [id number] 500mg Take 1 Univers oL 500 mg 6-28 tablet by ity o f tablet 00:00: mouth 4 [place] 00 (four) Medical times Branch daily as needed for Pain (scale 4-6). phenazopyri 0 Yes [id number] 200mg Take 1 Univers dine 200 mg 6-28 tablet by ity of tablet 00:00: mouth 3 [place] 00 (three) Medical times Branch daily. sennosides- 0 Yes [id number] 1{tbl} Take 1 Univers docusate 6-28 tablet by ity of sodium 00:00: mouth 2 [place] 8.6-50 mg 00 (two) Medical per tablet times Branch daily. simethicone 0 Yes [id number] 160mg Take 2 Univers 80 mg 6-28 tablets by ity of chewable 00:00: mouth [place] tablet 00 after Medical meals and Branch at bedtime. gabapentin 0 Yes [id number] 300mg Take 1 Univers 300 mg 6-28 [...] Indication s: acute pain methocarbam 2022-0 Yes [id number] 500mg Take 1 Univers oL 500 mg 6-28 tablet by ity o f tablet 00:00: mouth 4 [place] 00 (four) Medical times Branch daily as needed for Pain (scale 4-6). phenazopyri 2022-0 Yes [id number] 200mg Take 1 Univers dine 200 mg 6-28 tablet by ity of tablet 00:00: mouth 3 00 (three) Medical times Branch daily. sennosides- 2022-0 Yes [id number] 1{tbl} Take 1 Univers docusate 6-28 tablet by ity of sodium 00:00: mouth 2 [place] 8.6-50 mg 00 (two) Medical per tablet times Branch daily. simethicone 2022-0 Yes [id number] 160mg Take 2 Univers 80 mg 6-28 tablets by ity of chewable 00:00: mouth [place] tablet 00 after Medical meals and Branch at bedtime. gabapentin 2022-0 Yes [id number] 300mg Take 1 Univers 300 mg 6-28 [...] Indication s: acute pain methocarbam 2022-0 Yes [id number] 500mg Take 1 Univers oL 500 mg 6-28 tablet by ity o f tablet 00:00: mouth 4 [place] 00 (four) Medical times Branch daily as needed for Pain (scale 4-6). phenazopyri 2022-0 Yes [id number] 200mg Take 1 Univers dine 200 mg 6-28 tablet by ity of tablet 00:00: mouth 3 (three) Medical times Branch daily. sennosides- 2021-0 Yes [id number] 1{tbl} Take 1 Univers docusate 6-28 tablet by ity of sodium 00:00: mouth 2 [place] 8.6-50 mg 00 (two) Medical per tablet times Branch daily. simethicone 2021-0 Yes [id number] 160mg Take 2 Univers 80 mg 6-28 tablets by ity of chewable 00:00: mouth [place] tablet 00 after Medical meals and Branch at bedtime. gabapentin 2021-0 Yes [id number] 300mg Take 1 Univers 300 mg 6-28 [...] Indication s: acute pain methocarbam 2021-0 Yes [id number] 500mg Take 1 Univers oL 500 mg 6-28 tablet by ity o f tablet 00:00: mouth 4 [place] 00 (four) Medical times Branch daily as needed for Pain (scale 4-6). phenazopyri 2021-0 Yes [id number] 200mg Take 1 Univers dine 200 mg 6-28 tablet by ity of tablet 00:00: mouth 3 [place] 00 (three) Medical times Branch daily. sennosides- 2021-0 Yes [id number] 1{tbl} Take 1 Univers docusate 6-28 tablet by ity of sodium 00:00: mouth 2 [place] 8.6-50 mg 00 (two) Medical per tablet times Branch daily. simethicone 2021-0 Yes [id number] 160mg Take 2 Univers 80 mg 6-28 tablets by ity of chewable 00:00: mouth [place] tablet 00 after Medical meals and Branch at bedtime. gabapentin 2021-0 Yes [id number] 300mg Take 1 Univers 300 mg 6-28 [...] Indication s: acute pain methocarbam 2022-0 Yes [id number] 500mg Take 1 Univers oL 500 mg 6-28 tablet by ity o f tablet 00:00: mouth 4 [place] 00 (four) Medical times Branch daily as needed for Pain (scale 4-6). phenazopyri 2022-0 Yes [id number] 200mg Take 1 Univers dine 200 mg 6-28 tablet by ity of tablet 00:00: mouth 3 [place] 00 (three) Medical times Branch daily. sennosides- 2-0 Yes [id number] 1{tbl} Take 1 Univers docusate 6-28 tablet by ity of sodium 00:00: mouth 2 [place] 8.6-50 mg 00 (two) Medical per tablet times Branch daily. simethicone 2021-0 Yes [id number] 160mg Take 2 Univers 80 mg 6-28 tablets by ity of chewable 00:00: mouth [place] tablet 00 after Medical meals and Branch at bedtime. gabapentin 2021-0 Yes [id number] 300mg Take 1 Univers 300 mg 6-28 [...] Indication s: acute pain methocarbam 2021-0 Yes [id number] 500mg Take 1 Univers oL 500 mg 6-28 tablet by ity o f tablet 00:00: mouth 4 [place] 00 (four) Medical times Branch daily as needed for Pain (scale 4-6). phenazopyri 2022-0 Yes [id number] 200mg Take 1 Univers dine 200 mg 6-28 tablet by ity of tablet 00:00: mouth 3 [place] 00 (three) Medical times Branch daily. sennosides- 2-0 Yes [id number] 1{tbl} Take 1 Univers docusate 6-28 tablet by ity of sodium 00:00: mouth 2 [place] 8.6-50 mg 00 (two) Medical per tablet times Branch daily. simethicone 202-0 Yes [id number] 160mg Take 2 Univers 80 mg 6-28 tablets by ity of chewable 00:00: mouth [place] tablet 00 after Medical meals and Branch at bedtime. gabapentin 2021-0 Yes [id number] 300mg Take 1 Univers 300 mg 6-28 [...] Indication s: acute pain methocarbam 2021-0 Yes [id number] 500mg Take 1 Univers oL 500 mg 6-28 tablet by ity o f tablet 00:00: mouth 4 [place] 00 (four) Medical times Branch daily as needed for Pain (scale 4-6). phenazopyri 2021-0 Yes [id number] 200mg Take 1 Univers dine 200 mg 6-28 tablet by ity of tablet 00:00: mouth 3 [place] 00 (three) Medical times Branch daily. sennosides- 2021-0 Yes [id number] 1{tbl} Take 1 Univers docusate 6-28 tablet by ity of sodium 00:00: mouth 2 [place] 8.6-50 mg 00 (two) Medical per tablet times Branch daily. simethicone 2021-0 Yes [id number] 160mg Take 2 Univers 80 mg 6-28 tablets by ity of chewable 00:00: mouth [place] tablet 00 after Medical meals and Branch at bedtime. gabapentin 2021-0 Yes [id number] 300mg Take 1 Univers 300 mg 6-28 [...] Indication s: acute pain methocarbam 2021-0 Yes [id number] 500mg Take 1 Univers oL 500 mg 6-28 tablet by ity o f tablet 00:00: mouth 4 [place] 00 (four) Medical times Branch daily as needed for Pain (scale 4-6). phenazopyri Yes [id number] 200mg Take 1 Univers dine 200 mg 6-28 tablet by ity of tablet 00:00: mouth 3 [place] 00 (three) Medical times Branch daily. sennosides- Yes [id number] 1{tbl} Take 1 Univers docusate 6-28 tablet by ity of sodium 00:00: mouth 2 [place] 8.6-50 mg 00 (two) Medical per tablet times Branch daily. simethicone Yes [id number] 160mg Take 2 Univers 80 mg 6-28 [...] E)) 00 First dose Medical chewable on [facility] Branch tablet 160 10/11/21 at mg 0915, Until Discontinu ed, Routine simethicone 0 Yes 160mg 160 mg, Un brayden (GAS RELIEF 10-11 Oral, ity of (SIMETHICON 14:15: [place]HS, [place] E)) 00 First dose Medical chewable on Mon Branch tablet 160 10/11/21 at mg 0915, Until Discontinu ed, Routine simethicone 2021- No 120mg 120 mg, U nivers (GAS RELIEF 10-11 Oral, ity of (SIMETHICON 14:00: 14:11 PC+HS, [place] as E)) 00 :54 First dose Medical chewable on Mon Branch tablet 120 10/11/21 at mg 0900, Until Discontinu ed, Routine HYDROmorpho 2021- No .3mg 0.3 mg, Un [...] 0 Yes 1{tbl} 1 tablet, Univers -acetaminop - Oral, ity of hen (NORCO) 13:11: Q4HPRN, [place] as 10-325 mg 54 Starting Medica l tablet 1 on Mon Branch tablet 10/11/21 at 0811, Until Discontinu ed, Routine, Pain (scale 4-6) sennosides- 0 Yes 1{tbl} 1 tablet, Univers docusate 6-27 [...] 0800, Until Discontinu ed, Routine diphenhydrA 0 2022- No 25mg 25 mg, Uni vers MINE 10-1127 Oral, ity of (BENADRYL) 04:15: 03:20 ONCE, [...] diphenhydrA 0 Yes 50mg 50 mg, Univ ers MINE 10-10 Intravenou ity of (BENADRYL) 20:50: s, QHSPRN, [place] injection 29 Starting Medica l 50 mg on Sun Branch 10/10/21 at 1550, Until Discontinu ed, Routine, Insomnia diphenhydrA 0 Yes 50mg 50 mg, Univ ers MINE [...] A DAY NEEDED FOR 30 DAYS gabapentin 2022-0 Yes gabapentin U nivers 100 mg 10-10 [...] Medical mg last Branch modificati on) on [place] 10/10/21 at 1200, Until Discontinu ed, Routine HYDROmorpho 2021- No .2mg 0.2 mg, Un brayden ne 10-10 Slow IV ity of (DILAUDID) 15:55: 13:12 Push, [place] injection 26 :51 Q6HPRN, 5 Medic al 0.2 mg doses, Branch Starting on [place] 10/10/21 at 1055, Until 10/11/21 at 0812, Routine, Pain (scale 7-10)
U se approved by (Faculty): [facility] oxyCODONE 2021- No 5mg 5 mg, Univer s immediate 10-10 Oral, ity of release 15:54: 13:12 Q6HPRN, [place] tablet 5 mg 15 :12 Starting Medi frank on [place] Branch 10/10/21 at 1054, Until 10/11/21 at 0812, Routine, Pain (scale 4-6)
Fa culty member approving Restricted medication : NGOC QUINTEROS ALPRAZolam 2021- No .25mg 0.25 mg, U nivers (XANAX) 10-10 Oral, ity of tablet 0.25 01:00: 20:50 QHSPRN, [place] mg 00 :59 Starting Medical on [facility] Branch 10/09/21 at 2000, Until [place] 10/10/21 at 1550, SUSI, Insomnia magnesium 2021- [...] CONTINUOUS Medical (DILAUDID) , Starting Bra nch [employer] on 10/09/21 at 1145, Until 10/10/21 at 1055 acetaminoph 2021- No 650mg 650 mg, U nivers en 10-09 Oral, ity of (TYLENOL) 15:39: 15:55 Q6HPRN, [place] tablet 650 11 :40 Starting Medic al mg on Sat Branch 10/09/21 at 1039, Until 10/10/21 at 1055, Routine, Alternate with [place] for pain scale 4-6 HYDROmorphO 2021- No Slow IV Un brayden ne 10-09 Push, ity of (DILAUDID)2 15:33: 15:55 Routine [place] mg/mL Load 42 :40 Medical [facility] Rescue Branch dose polyethylen Yes 17g 17 g, Unive rs e glycol - Oral, ity of 3350 powder 14:00: [place]ILY[place] 17 [place] 00 First dose Medical on Sat Branch 10/09/21 at 0900, Until Discontinu ed, Routine sennosides- Yes 1{tbl} 1 tablet, Univers docusate 25 Oral, ity of sodium 14:00: DAILY, [place] [...] [place] iron)/5 mL 00 :59 on [facility] Medical solution 10/09/21 at Branc h 300 mg 0800, Until Discontinu ed, Routine D5W-LR IV 2022-0 2022- No 1000mL at 75 Univ ers infusion 10-09-25 mL/hr, IV ity o f 1,000 mL 10:45: 21:03 Infusion, Eladio as 00 :24 CONTINUOUS Medical , Starting Branch on 10/09/21 at 0545, Until 10/09/21 at 1603, Routine diphenhydrA 2021-0 2021- No 25mg 25 mg, Uni vers [...] For systolic over 140 per cuff. labetaloL 0 2021- No 20mg 20 mg, Unive rs (NORMODYNE) 10-08- Slow IV ity of injection 20:58: 13:41 Push, [place] 20 mg 41 :55 Q20MIN Medical PRN, 2 Branch doses, Starting on Mon10/08/21 at 1558, Until 10/09/21 at 0841, Routine, For systolic over 140 per cuff. FENTanyl 2021-0 Yes 1000ug IV Univers [employer] 1,000 10-08 Infusion, ity o f mcg in NaCl 18:45: CONTINUOUS [place] 0.9%(NS) 00 , Starting Medic al 100 mL RTU on Mon Branch 10/08/21 at 1345, Until Discontinu ed, SUSI FENTanyl 2021-0 2022- No 1000ug IV Univer s [employer] 1,000 10-08 Infusion, ity of mcg in NaCl 18:45: 15:36 CONTINUOUS [place] 0.9%(NS) 00 :35 , Starting Medic al 100 mL RTU on Mon Branch 10/08/21 at 1345, Until 10/09/21 at 1036, SUSI magnesium 2022-0 2021- No 2g 2 g, IV Univ [...] Until Discontinu ed, SUSI, Muscle Spasms FENTanyl 2-0 2022- No 1000ug IV Univer s [employer] 1,000 10-08 Infusion, ity of mcg in NaCl 10:45: 18:04 CONTINUOUS [place] 0.9%(NS) 00 :44 , Starting Medic al 100 mL RTU on Mon Branch 10/08/21 at 0545, Until Mon10/08/21 at 1304, SUSI ondansetron 2021-0 Yes 4mg 4 mg, Slow Univers (ZOFRAN [...] at 0438, Until Discontinu ed, Routine FENTanyl Yes Slow IV Univer s (SUBLIMAZE) 10-08 Push, ity of 50 mcg/mL 09:38: Routine [place] Load & 00 Medical Rescue dose Branch naloxone 0 Yes .1mg 0.1 mg, Univer s (NARCAN) 10-08 Slow IV ity of injection 09:38: Push, [place] 0.1 mg 00 SEE-INSTRU Medical CTIONS, Branch Starting on Mon10/08/21 at 0438, Until Discontinu ed, Routine naloxone 0 Yes .1mg 0.1 mg, Univer s (NARCAN) 10-08 Slow IV ity of injection 09:38: Push, [place] 0.1 mg 00 SEE-INSTRU Medical CTIONS, Branch Starting on Mon10/08/21 at 0438, Until Discontinu ed, Routine FENTanyl 0 2021- No Slow IV Unive rs (SUBLIMAZE) 10-08 Push, ity of 50 mcg/mL 09:38: 15:36 Routine [place] Load & 00 :20 Medical Rescue dose Branch bupivacaine 0 2021- No PRN, Unive rs liposome 10-08 Starting ity of (PF) 08:49: 09:41 on Mon (EXPAREL 00 :23 10/08/21 at Medic al (PF)) 1.3 % 0349, Branch (13.3 Until Mon mg/mL) 10/08/21 at injection 0441, Routine, Intra-op sodium 2021-0 Yes PRN, Univers chloride 10-08 Starting ity of 0.9 % 07:00: on Mon irrigation 00 10/08/21 at Med ical solution 0200, Branch Until Discontinu ed, Intra-op sodium 2021-0 Yes PRN, Univers chloride 10-08 Starting ity of 0.9 % 07:00: on Mon [place] irrigation 10/08/21 at [facility] ical solution 0200, Branch Until Discontinu ed, Intra-op sodium 2021-0 Yes PRN, Univers chloride 10-08 Starting ity of 0.9 % 07:00: on Mon [place] irrigation 10/08/21 at [facility] ical solution 0200, Branch Until Discontinu ed, Intra-op lactated 2021- No 500mL at 999 Unive rs ringers IV 10-08 mL/hr, 500 it y of infusion 06:45: 05:14 mL, [place] 500 mL 00 :00 Intravenou Medical s, ONCE, 1 Branch dose, On Mon10/08/21 at 0145, Routine phenylephri No .5ug/kg 0.5-2 U nivers ne 10 [...] 1 Medical 25 mg dose, On Branch 6/24/22 at 0030, Routine ibuprofen 2022-0 Yes ibuprofen Uni vers 800 mg 24 800 mg ity of tablet 04:41: tablet 24 TAKE 1 Medical TABLET BY Branch MOUTH TWICE A DAY NEEDED HYDROcodone 2021-0 Yes hydrocodon Univers -acetaminop 6-24 e 10 ity of hen 10-325 04:41: mg-acetami [place] mg tablet 24 nophen 325 Medi frank mg tablet Branch TAKE 1 TABLET BY MOUTH FOUR TIMES A DAY NEEDED FOR 30 DAYS gabapentin 2021-0 Yes gabapentin U nivers 100 mg 24 100 mg ity of capsule 04:41: capsule 24 TAKE 1 Medical CAPSULE BY Branch MOUTH EVERY DAY AT BEDTIME FOR 30 DAYS acetaminoph 0 Yes acetaminop Univers en-codeine 24 hen 300 ity of 300-30 mg 04:41: mg-codeine [place] tablet 24 30 mg Medical tablet Branch TAKE 1 TABLET BY MOUTH 2-3 TIMES EVERY DAY NEEDED FOR PAIN. acetaminoph 2021- No 1000mg 1,000 mg, Univers en ADULT 10-08 06-24 IV ity of (OFIRMEV) 03:00: 20:15 Infusion, [place] injection 00 :00 at 400 Medical 1,000 mg mL/hr [place] Administer over 15 Minutes, Q8H, 3 doses, First dose (after last modificati on) on Mon10/07/21 at 2200, Last dose on Mon10/08/21 at 1400, Routine
Indicatio n: Perioperat zahida Patient gabapentin 2021-0 Yes 300mg 300 mg, Uni vers (NEURONTIN) 6-24 Oral, TID, it y of capsule 300 01:00: First dose [place] mg 00 on [facility] 10/07/21 at [place] 1999, Until Discontinu ed, Routine gabapentin 2-0 Yes 300mg 300 mg, Uni vers (NEURONTIN) 6-24 Oral, TID, it y of capsule 300 01:00: First dose [place] mg 00 on [facility] 10/07/21 at [place] 1999, Until Discontinu ed, Routine gabapentin 2021-0 Yes 300mg 300 mg, Uni vers (NEURONTIN) 6-24 Oral, TID, it y of capsule 300 01:00: First dose [place] mg 00 on [facility] 10/07/21 at Branch 1999, Until Discontinu ed, Routine ibuprofen Yes ibuprofen Uni vers 800 mg 10-08 800 mg ity of tablet 00:39: tablet [place] 38 TAKE 1 Medical TABLET BY Branch MOUTH TWICE A DAY NEEDED HYDROcodone Yes hydrocodon Univers -acetaminop 10-08 e 10 ity of hen 10-325 00:39: [...] No 30mg 30 mg, Unive rs (TORADOL) 10-0724 Slow IV ity of injection 23:00: 09:45 [...] No 1000mL at 125 Uni vers infusion 6-23 06-25 mL/hr, IV ity o f 1,000 [...] on [place] Branch 10/07/21 at 1612, Until 10/08/21 at 0445, Routine, Pain (scale 7-10) ondansetron [...] Jeny [place] irrigation 00 :12 10/07/21 at [facility] ical solution 1550, Branch Until Jeny 10/07/21 at 1720, Intra-op lidocaine-e 2021- No PRN, Unive rs pinephrine 10-07 Starting ity of (XYLOCAINE 20:49: [facility]07[facility]21 at Medical EPINEPHRINE 1549, Branch ) 1 Until [place] %-1:100,000 10/07/21 at injection 1720, Routine, Intra-op bupivacaine 2021- No PRN, Unive rs (preserv 10-07 Starting ity of free) 20:48: 22:20 on [facility] (SENSORCAIN 00 :12 10/07/21 at Ms dical [...] ity of injection 17:27: 21:01 INTRA [place] 00 :33 PROCEDURE, Medical Starting Branch on Jeny 10/07/21 at 1227, Until Jen[place] 10/07/21 at 1601, Routine, Intra-op ePHEDrine 2021- No Slow IV Univ ers 25 mg/5 mL 10-07 Push, ONCE it y of (5 mg/mL) 17:22: 21:01 INTRA [place] syringe 00 :33 PROCEDURE, Medica l Starting Branch on [place] [...] [place] 00 :33 Starting Medical on Jney Branch 10/07/21 at 1137, Until Jeny 10/07/21 [...] Surgical Prophylaxi s
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
Duration of therapy: within 24 hours of surgery diphenhydrA No 50mg 50 mg, Uni vers MINE 10-07 Oral, ity of (BENADRYL) 05:00: 04:23 ONCE, 1 [place] tablet 50 00 :00 dose, On Medica l mg [place] Branch 10/07/21 at 0000, Routine HYDROcodone 2021- No 1{tbl} 1 tablet, Univers -acetaminop 10-07 Oral, ity of hen (NORCO) 05:00: 04:23 ONCE, 1 [place] 10-325 mg 00 :00 dose, On Medica l tablet 1 [place] Branch tablet 10/07/21 at 0000, Routine lactated 2021- No 1000mL at 42 Unive rs ringers IV 6-22 06-23 mL/hr, ity of infusion 19:45: 03:50 1,000 mL, [place] as 1,000 mL 00 :00 IV Medical Infusion, Branch ONCE, 1 dose, On Mon10/06/21 at 1445, Routine, DSU Pre-op carisoprodo 2021-0 [...] 00 daily. Medical Branch Immunizations Ordered Filled Date Status Comments Source Immunization Name Immunization Name TDAP (ADACEL) 2018-10-15 Completed University of VACCINE 00:00:00 [facility] TDAP (ADACEL) 2018-10-15 Completed University of VACCINE 00:00:00 [facility] TDAP (ADACEL) 2018-10-15 Completed University of VACCINE 00:00:00 [facility] TDAP (ADACEL) 2018-10-15 Completed University of VACCINE 00:00:00 [facility] TDAP (ADACEL) 2018-10-15 Completed University of VACCINE 00:00:00 [facility] TDAP (ADACEL) 2018-10-15 Completed University of VACCINE 00:00:00 [facility] TDAP (ADACEL) 2018-10-15 Completed University of VACCINE 00:00:00 [facility] TDAP (ADACEL) 2018-10-15 Completed University of VACCINE 00:00:00 [facility] TDAP (ADACEL) 2018-10-15 Completed University of VACCINE 00:00:00 [facility] TDAP (ADACEL) 2018-10-15 Completed University of VACCINE 00:00:00 [facility] TDAP (ADACEL) Unknown Completed University of VACCINE [facility] TDAP (ADACEL) Unknown Completed University of VACCINE [facility] Vital Signs Vital Name Observation Time Observation Value Comments Source Systolic blood 2021-10-12 16:39:00 121 mm[Hg] Univer sity of pressure [facility] Diastolic blood 2021-10-12 16:39:00 67 mm[Hg] Unive rsity of pressure [facility] Heart rate 2021-10-12 16:39:00 59 /min [facility] Body temperature 2021-10-12 16:39:00 37.28 Radha [facility] [place] [facility] 2021-10-12 16:39:00 18 /min [facility] Oxygen saturation in 2021-10-12 16:39:00 97 /min [facility] Arterial blood by [facility] Pulse oximetry Branch Body height 2021-10-10 13:00:00 162.6 cm [facility] Body weight 2021-10-10 13:00:00 83.7 kg [facility] BMI 2021-10-10 13:00:00 31.66 kg/m2 [facility] WEIGHT 2022-05-03 06:00:00 71.6 kg WEIGHT 2022-05-01 23:00:00 69 kg WEIGHT 2022-05-03 06:00:00 71.6 kg WEIGHT 2022-05-01 23:00:00 69 kg WEIGHT 2022-05-03 06:00:00 71.6 kg WEIGHT 2022-05-01 23:00:00 69 kg Systolic blood 2021-10-12 16:39:00 121 mm[Hg] Univer [...] 97 /min University of Arterial blood by [employer] Pulse oximetry Branch Body height 2021-10-10 13:00:00 [...] 100 /min University of Arterial blood by [employer] frank Pulse oximetry Branch Body weight 2021-10-08 05:40:00 88 kg [facility] [place] [facility] BMI 2021-10-08 05:40:00 31.66 kg/m2 [facility] [place] [facility] Body height 2021-10-07 05:00:00 162.6 cm [facility] [place] [facility] Systolic blood 2021-10-07 21:15:00 118 [...] 100 /min University of Arterial blood by [place] [facility] [employer] frank Pulse oximetry Branch Body temperature 2021-10-07 21:00:00 36.94 Radha [facility] [place] [facility] Body height 2021-10-07 05:00:00 162.6 cm [facility] [place] [facility] Body weight 2021-10-06 20:20:00 75.4 kg [facility] [place] [facility] BMI 2021-10-06 20:20:00 33.30 kg/m2 [facility] [place] [facility] Systolic blood 2021-10-07 21:15:00 118 [...] 100 /min University of Arterial blood by [place] [facility] [employer] frank Pulse oximetry Branch Body temperature 2021-10-07 21:00:00 36.94 Radha [facility] [place] [facility] Body height 2021-10-07 05:00:00 162.6 cm [facility] [place] [facility] Body weight 2021-10-06 20:20:00 75.4 kg [facility] [place] [facility] BMI 2021-10-06 20:20:00 33.30 kg/m2 [facility] [place] [facility] Systolic blood 2022-05-06 12:00:00 105 mm[Hg] [facility] Diastolic blood 2022-05-06 12:00:00 52 mm[Hg] [facility] Heart rate 2022-05-06 12:00:00 65 /min [facility] Body temperature 2022-05-06 12:00:00 36.56 Radha [facility] Respiratory rate 2022-05-06 12:00:00 18 /min [facility] Oxygen saturation in 2022-05-06 12:00:00 98 /min [facility] Arterial blood by Medical Ce nter Pulse oximetry Body weight 2022-05-03 06:00:00 71.6 kg [facility] Procedures Procedure Date / Time Performing Clinician Source Performed CBC W/PLT COUNT & AUTO 2022-05-06 06:18:00 [facility] [place] [facility] METABOLIC PANEL 2022-05-06 06:18:00 [facility] CBC W/PLT COUNT & AUTO 2022-05-06 06:18:00 [facility] DIFFERENTIAL [facility] CBC W/PLT COUNT & AUTO 2022-05-05 03:41:00 [facility] DIFFERENTIAL [facility] BASIC METABOLIC PANEL 2022-05-05 03:41:00 [facility] Hospital CBC W/PLT COUNT & AUTO 2022-05-05 03:41:00 [facility] DIFFERENTIAL [facility] PREPARE RBC 2022-05-04 23:55:00 Rosy Deras [facility] REPORT OF PROCEDURE - 2022-05-04 09:05:29 [facility] ENDOSCOPY [facility] REPORT OF PROCEDURE - 2022-05-04 09:04:15 [facility] ENDOSCOPY [facility] EGD 2022-05-04 07:58:00 [facility] (ESOPHAGOGASTRODUODENOSCOP Sergio Kevin) COLONOSCOPY 2022-05-04 07:58:00 Hunt, Suneal [facility] CBC W/PLT COUNT & AUTO 2022-05-04 06:02:00 [facility] METABOLIC PANEL 2022-05-04 06:02:00 [facility]/INR 2022-05-04 06:02:00 [facility] CBC W/PLT COUNT & AUTO 2022-05-04 06:02:00 [facility] DIFFERENTIAL [facility] (CELLAVISION MANUAL DIFF) 2022-05-04 06:02:00 [facility] PREPARE LEUKO-REDUCED 2022-05-03 23:54:00 [facility] PLATELETS [facility] PREPARE RBC 2022-05-03 23:54:00 Jd [facility] TRANSFUSE LEUKO-REDUCED 2022-05-03 23:36:00 RickChana I [facility] RED BLOOD CELLS [facility] TRANSFUSE LEUKO-REDUCED 2022-05-03 00:14:00 [facility] RED BLOOD CELLS [facility] COMPREHENSIVE METABOLIC 2022-05-02 13:45:00 [facility] PANEL [facility] MAGNESIUM 2022-05-02 13:45:00 [facility] CBC W/PLT COUNT & AUTO 2022-05-02 13:45:00 [facility] DIFFERENTIAL [facility] CBC W/PLT COUNT & AUTO 2022-05-02 13:45:00 [facility] DIFFERENTIAL [facility] TRANSFUSE LEUKO-REDUCED 2022-05-02 06:30:00 [facility] PLATELETS [facility] ABORH, MANUAL 2022-05-02 00:13:00 Aimee Zapata [facility] CBC W/PLT COUNT & AUTO 2022-05-01 23:53:00 Rosy Deras [facility] PROTHROMBIN TIME/INR 2022-05-01 23:53:00 Rosy Deras [facility] TYPE AND SCREEN, AUTOMATED 2022-05-01 23:53:00 Rosy Deras [facility] CBC W/PLT COUNT & AUTO 2022-05-01 23:53:00 Rosy Deras [facility] CBC WITH DIFF 2021-10-12 11:42:00 Lona [facility] URINALYSIS 2021-10-11 15:27:00 Lona [facility] URINALYSIS 2021-10-11 15:27:00 Lona [facility] URINE CULTURE 2021-10-11 15:27:00 Lona [facility] CBC WITHOUT DIFF 2021-10-10 22:32:00 Yunier [facility] CBC WITHOUT DIFF 2021-10-10 22:32:00 Yunier [facility] PHOSPHORUS 2021-10-10 11:08:00 Yunier [facility] MAGNESIUM 2021-10-10 11:08:00 Yunier [facility] BASIC METABOLIC PANEL (NA, 2021-10-10 11:08:00 Nichloas Faye [facility] K, CL, CO2, GLUCOSE, BUN, Medica l Branch CREATININE, [place]) CBC WITHOUT DIFF 2021-10-10 11:08:00 Yunier [facility] PHOSPHORUS 2021-10-10 11:08:00 Yunier [facility] MAGNESIUM 2021-10-10 11:08:00 Yunier [facility] BASIC METABOLIC PANEL (NA, 2021-10-10 11:08:00 Nicholas Faye [facility] K, CL, CO2, GLUCOSE, BUN, Medica l Branch CREATININE, CA) CBC WITHOUT DIFF 2021-10-10 11:08:00 Yunier [facility] CBC WITHOUT DIFF 2021-10-09 23:22:00 Yunier [facility] CBC WITHOUT DIFF 2021-10-09 23:22:00 Yunier [facility] CBC WITHOUT DIFF 2021-10-09 16:22:00 Yunier [facility] CBC WITHOUT DIFF 2021-10-09 16:22:00 Yunier [facility] TRANSFUSE PACKED RBC 2021-10-09 10:31:00 Clara [facility] TRANSFUSE PACKED RBC 2021-10-09 10:31:00 Monsekellie Alexandra [facility] PREPARE PACKED RBC 2021-10-09 10:06:26 Monse [facility] PREPARE PACKED RBC 2021-10-09 10:06:26 [facility] WITHOUT DIFF 2021-10-09 08:35:00 [facility] PHOSPHORUS 2021-10-09 08:35:00 [facility] MAGNESIUM 2021-10-09 08:35:00 [facility] BASIC METABOLIC PANEL (NA, 2021-10-09 08:35:00 [facility], CL, CO2, GLUCOSE, BUN, Medica l Branch CREATININE, [place]) CBC WITHOUT DIFF 2021-10-09 08:35:00 [facility] PHOSPHORUS 2021-10-09 08:35:00 [facility] MAGNESIUM 2021-10-09 08:35:00 [facility] BASIC METABOLIC PANEL (NA, 2021-10-09 08:35:00 [facility], CL, CO2, GLUCOSE, BUN, Medica l Branch CREATININE, CA) CBC WITHOUT DIFF 2021-10-09 01:26:00 [facility] CBC WITHOUT DIFF 2021-10-09 01:26:00 [facility] BASIC METABOLIC PANEL (NA, 2021-10-09 00:09:00 Marcela Khan U niversity [facility] K, CL, CO2, GLUCOSE, BUN, Medica l Branch CREATININE, CA) BASIC METABOLIC PANEL (NA, 2021-10-09 00:09:00 Marcela Khan [facility] K, CL, CO2, GLUCOSE, BUN, Medica l Branch CREATININE, CA) BASIC METABOLIC PANEL (NA, 2021-10-08 15:10:00 Yunier, Nicholas [facility], CL, CO2, GLUCOSE, BUN, Medica l Branch CREATININE, CA) CBC WITHOUT DIFF 2021-10-08 15:10:00 [facility] BASIC METABOLIC PANEL (NA, 2021-10-08 15:10:00 Yunier, Nicholas [facility] K, CL, CO2, GLUCOSE, BUN, Medica l Branch CREATININE, CA) CBC WITHOUT DIFF 2021-10-08 15:10:00 [facility] BASIC METABOLIC PANEL (NA, 2021-10-08 15:10:00 Yunier, Nicholas [facility] K, CL, CO2, GLUCOSE, BUN, Medica l Branch CREATININE, CA) CBC WITHOUT DIFF 2021-10-08 15:10:00 Carol [facility] AC PANEL 20 + LACTIC ACID 2021-10-08 10:24:00 Dalia Carson [facility] AC PANEL 20 + LACTIC ACID 2021-10-08 10:24:00 Dalia Carson [facility] AC PANEL 20 + LACTIC ACID 2021-10-08 10:24:00 Dalia Carson [facility] PHOSPHORUS 2021-10-08 10:20:00 Yamileth [facility] MAGNESIUM 2021-10-08 10:20:00 Yamileth [facility] HEPATIC FUNCTION PANEL 2021-10-08 10:20:00 Yamileth [facility] ([id number]) (ALB,T.PRO,BILI Medical Branch T,BU/BC,ALT,AST,ALK PHOS) BASIC METABOLIC PANEL (NA, 2021-10-08 10:20:00 Sandra Carsonsay [facility] K, CL, CO2, GLUCOSE, BUN, Medica l Branch CREATININE, CA) CBC WITH DIFF 2021-10-08 10:20:00 Oxana Gupta [facility] GLYCOSYLATED HEMOGLOBIN 2021-10-08 10:20:[address] [facility] ([facility]) Medical [place] PROTHROMBIN TIME / INR 2021-10-08 10:20:00 Oxana Gupta [facility] [place] [facility] ACTIVATED PARTIAL THRMPLAS 2021-10-08 10:20:00 Oxana Gupta [facility] FIBRINOGEN 2021-10-08 10:20:00 Oxana Gupta [facility] PHOSPHORUS 2021-10-08 10:20:00 Yamileth [facility] MAGNESIUM 2021-10-08 10:20:00 Yamileth [facility] HEPATIC FUNCTION PANEL 2021-10-08 10:20:00 Yamileth [facility] ([id number]) (ALB,T.PRO,BILI Medical Branch T,BU/BC,ALT,AST,ALK PHOS) BASIC METABOLIC PANEL (NA, 2021-10-08 10:20:00 Yamileth Dalia [facility] K, CL, CO2, GLUCOSE, BUN, Medica l Branch CREATININE, CA) CBC WITH DIFF 2021-10-08 10:20:00 Oxana Gupta [facility] GLYCOSYLATED HEMOGLOBIN 2021-10-08 10:20:[address] [facility] ([facility]) [facility] PROTHROMBIN TIME / INR 2021-10-08 10:20:00 Oxana Gupta [facility] [place] [facility] ACTIVATED PARTIAL THRMPLAS 2021-10-08 10:20:00 Oxana Gupta [facility] FIBRINOGEN 2021-10-08 10:20:00 Alonso Oxana [facility] PHOSPHORUS 2021-10-08 10:20:00 Yamileth [facility] MAGNESIUM 2021-10-08 10:20:00 Yamileth [facility] HEPATIC FUNCTION PANEL 2021-10-08 10:20:00 Yamileth [facility] ([id number]) (ALB,T.PRO,BILI Medical Branch T,BU/BC,ALT,AST,ALK PHOS) BASIC METABOLIC PANEL (NA, 2021-10-08 10:20:00 Dalia Carson [facility] K, CL, CO2, GLUCOSE, BUN, Medica l Branch CREATININE, CA) CBC WITH DIFF 2021-10-08 10:20:00 Alonso [facility] GLYCOSYLATED HEMOGLOBIN 2021-10-08 10:20:00 [facility] PROTHROMBIN TIME / INR 2021-10-08 10:20:00 Oxana Gupta [facility] ACTIVATED PARTIAL THRMPLAS 2021-10-08 10:20:00 Oxana Gupta [facility] FIBRINOGEN 2021-10-08 10:20:00 Alonso Oxana [facility] PREPARE PLASMA 2021-10-08 09:48:16 [facility] 2021-10-08 09:48:16 Florencio Lr [facility] PREPARE PLASMA 2021-10-08 09:48:16 Be Matias [facility] PREPARE PACKED RBC 2021-10-08 09:47:11 [facility] 2021-10-08 09:47:11 [facility] 2021-10-08 09:47:11 Florencio Lr [facility] HB ECG ROUTINE & RHYTHM 2021-10-08 09:44:02 Yamileth [facility] HB ECG ROUTINE & RHYTHM 2021-10-08 09:44:02 Yamileth [facility] TRANSFUSE CRYOPRECIPITATE 2021-10-08 08:58:00 [facility] [place] ([place] ) [facility] TRANSFUSE CRYOPRECIPITATE 2021-10-08 08:58:00 [facility] ([place] ) [facility] TRANSFUSE CRYOPRECIPITATE 2021-10-08 08:58:00 Herrera [facility] ([place] ML) [facility] ABG+COOX+NA+K+GLU+CA2+ 2021-10-08 08:55:00 Florencio Lr [facility] ABG+COOX+NA+K+GLU+CA2+ 2021-10-08 08:55:00 Florencio Lr [facility] PROTHROMBIN TIME / INR 2021-10-08 08:50:00 Judi Merino [facility] PROTHROMBIN TIME / INR 2021-10-08 08:50:00 Judi Merino [facility] PROTHROMBIN TIME / INR 2021-10-08 08:50:00 Judi Merino [facility] TRANSFUSE PLASMA 2021-10-08 08:31:00 Michael Andrews [facility] TRANSFUSE PLASMA 2021-10-08 08:31:00 Michael Andrews [facility] TRANSFUSE PLASMA 2021-10-08 08:31:00 Michael Andrews [facility] TRANSFUSE PACKED RBC 2021-10-08 08:28:00 Michael Andrews [facility] TRANSFUSE PACKED RBC 2021-10-08 08:28:00 Michael Andrews [facility] TRANSFUSE PACKED RBC 2021-10-08 08:28:00 Michael Andrews [facility] ABG+COOX+NA+K+GLU+CA2+ 2021-10-08 08:01:00 Florencio Lr [facility] ABG+COOX+NA+K+GLU+CA2+ 2021-10-08 08:01:00 Florencio Lr [facility] TRANSFUSE PLASMA (IN ML) 2021-10-08 07:55:00 Michael Andrews [facility] TRANSFUSE PLASMA (IN ML) 2021-10-08 07:55:00 Michael Andrews [facility] TRANSFUSE PACKED RBC 2021-10-08 07:50:00 Michael Andrews [facility] TRANSFUSE PACKED RBC 2021-10-08 07:50:00 Michael Andrews [facility] CBC WITHOUT DIFF 2021-10-08 07:46:00 Judi Merino [facility] EXTRA TUBE SST 2021-10-08 07:46:00 Florencio Lr [facility] CBC WITHOUT DIFF 2021-10-08 07:46:00 Judi Merino [facility] EXTRA TUBE SST 2021-10-08 07:46:00 Florencio Lr [facility] CBC WITHOUT DIFF 2021-10-08 07:46:00 Judi Merino [facility] EXTRA TUBE SST 2021-10-08 07:46:00 [facility] ABG+COOX+NA+K+GLU+CA2+ 2021-10-08 07:43:00 Be Matias [facility] ABG+COOX+NA+K+GLU+CA2+ 2021-10-08 07:43:00 Addison Lruong [facility] TRANSFUSE PLASMA (IN ML) 2021-10-08 07:36:00 Michael Andrews [facility] TRANSFUSE PLASMA (IN ML) 2021-10-08 07:36:00 Michael Andrews [facility] FIBRINOGEN 2021-10-08 07:32:00 Judi Mer[facility] FIBRINOGEN 2021-10-08 07:32:00 Judi Merino [facility] FIBRINOGEN 2021-10-08 07:32:00 Judi [facility] TRANSFUSE PACKED RBC 2021-10-08 07:30:00 Viviana Healy [facility] TRANSFUSE PLASMA (IN ML) 2021-10-08 07:30:00 Michael Andrews [facility] TRANSFUSE PACKED RBC 2021-10-08 07:30:00 Viviana Healy [facility] TRANSFUSE PLASMA (IN ML) 2021-10-08 07:30:00 Michael Andrews [facility] PREPARE CRYOPRECIPITATE 2021-10-08 07:24:24 Be [facility] PREPARE CRYOPRECIPITATE 2021-10-08 07:24:24 Be [facility] PREPARE CRYOPRECIPITATE 2021-10-08 07:24:24 Be [facility] TRANSFUSE PACKED RBC 2021-10-08 07:22:00 Michael Andrews [facility] TRANSFUSE PACKED RBC 2021-10-08 07:22:00 Michael Andrews [facility] TRANSFUSE PACKED RBC 2021-10-08 07:19:00 Michael Andrews [facility] TRANSFUSE PACKED RBC 2021-10-08 07:19:00 Michael Andrews [facility] ABG+COOX+NA+K+GLU+CA2+ 2021-10-08 07:13:00 Be [facility] ABG+COOX+NA+K+GLU+CA2+ 2021-10-08 07:13:00 Be Matias [facility] TRANSFUSE PLASMA (IN ML) 2021-10-08 07:08:00 Michael Andrews [facility] TRANSFUSE PLASMA (IN ML) 2021-10-08 07:08:00 Michael Andrews [facility] TRANSFUSE PLATELETS 2021-10-08 06:55:00 [facility] 2021-10-08 06:55:00 [facility] PREPARE PLATELETS 2021-10-08 06:44:36 Florencio Lr [facility] PREPARE PLATELETS 2021-10-08 06:44:36 [facility] PREPARE PLATELETS 2021-10-08 06:44:36 Florencio Lr [facility] EXPLORATORY LAPAROTOMY 2021-10-08 06:24:00 Wilber Judi Milvia [facility] EVACUATION HEMATOMA PELVIC 2021-10-08 06:24:00 Judi Mernio [facility] EXPLORATORY LAPAROTOMY 2021-10-08 06:24:00 Judi Merino [facility] EVACUATION HEMATOMA PELVIC 2021-10-08 06:24:00 Judi Merino [facility] FIBRINOGEN 2021-10-08 06:17:00 [facility] FIBRINOGEN 2021-10-08 06:17:00 [facility] FIBRINOGEN 2021-10-08 06:17:00 [facility] AC PANEL 21 + LACTIC ACID 2021-10-08 06:14:00 Elizabeth Mccray [facility] AC PANEL 21 + LACTIC ACID 2021-10-08 06:14:00 [facility] AC PANEL 21 + LACTIC ACID 2021-10-08 06:14:00 Elizabeth Mccray [facility] BASIC METABOLIC PANEL (NA, 2021-10-08 06:12:00 Yadira Mccray [facility] K, CL, CO2, GLUCOSE, BUN, Medica l Branch CREATININE, CA) CBC WITH DIFF 2021-10-08 06:12:00 [facility] 2021-10-08 06:12:00 Elizabeth Mccray [facility] ACTIVATED PARTIAL THRMPLAS 2021-10-08 06:12:00 Yadira Mccray [facility] FIBRINOGEN 2021-10-08 06:12:00 Elizabeth Mccray [facility] BASIC METABOLIC PANEL (NA, 2021-10-08 06:12:00 Yadira Mccray [facility] K, CL, CO2, GLUCOSE, BUN, Medica l Branch CREATININE, CA) CBC WITH DIFF 2021-10-08 06:12:00 Elizabeth Mccray [facility] PROTHROMBIN TIME / INR 2021-10-08 06:12:00 [facility] PARTIAL THRMPLAS 2021-10-08 06:12:00 Yadira Mccray [facility] FIBRINOGEN 2021-10-08 06:12:00 Elizabeth Mccray [facility] BASIC METABOLIC PANEL (NA, 2021-10-08 06:12:00 Yadira Mccray [facility] K, CL, CO2, GLUCOSE, BUN, Medica l Branch CREATININE, CA) CBC WITH DIFF 2021-10-08 06:12:00 Elizabeth Mccray [facility] PROTHROMBIN TIME / INR 2021-10-08 06:12:00 Elizabeth Mccray Un [facility] ACTIVATED PARTIAL THRMPLAS 2021-10-08 06:12:00 Yadira Mccray [facility] FIBRINOGEN 2021-10-08 06:12:00 Elizabeth Mccray [facility] EXTERNAL PROVIDER RECORDS 2021-10-08 05:01:00 Doctor Unassigned, [facility] Name [facility] EXTERNAL PROVIDER RECORDS 2021-10-08 05:01:00 Doctor Unassigned, [facility] Name [facility] EXTERNAL PROVIDER RECORDS 2021-10-08 05:01:00 Doctor Unassigned, [facility] Name [facility] TRANSFUSE PACKED RBC 2021-10-08 04:45:00 [facility] TRANSFUSE PACKED RBC 2021-10-08 04:45:00 Ly [facility] MAGNESIUM 2021-10-08 04:36:00 Ly [facility] BASIC METABOLIC PANEL (NA, 2021-10-08 04:36:00 Ly, [facility]iana [facility] [place] [facility], CL, CO2, GLUCOSE, BUN, Medica l Branch CREATININE, CA) CBC WITH DIFF 2021-10-08 04:36:00 Ly, [facility] MAGNESIUM 2021-10-08 04:36:00 Ly, [facility] BASIC METABOLIC PANEL (NA, 2021-10-08 04:36:00 Ly, Viviana [facility] [place] K, CL, CO2, GLUCOSE, BUN, Medica l Branch CREATININE, CA) CBC WITH DIFF 2021-10-08 04:36:00 Ly, [facility] MAGNESIUM 2021-10-08 04:36:00 Ly, [facility] BASIC METABOLIC PANEL (NA, 2021-10-08 04:36:00 Ly, Viviana [facility] [place] K, CL, CO2, GLUCOSE, BUN, Medica l Branch CREATININE, CA) CBC WITH DIFF 2021-10-08 04:36:00 Ly, [facility] PREPARE PACKED RBC 2021-10-08 04:27:22 Ly, [facility] PREPARE PACKED RBC 2021-10-08 04:27:22 Ly, [facility] PREPARE PACKED RBC 2021-10-08 04:27:22 Ly, [facility] POCT GLUCOSE (AUTOMATED) 2021-10-08 03:51:00 Florencio Lr [facility] POCT GLUCOSE (AUTOMATED) 2021-10-08 03:51:00 Florencio Lr [facility] POCT GLUCOSE (AUTOMATED) 2021-10-08 03:51:00 Florencio Lr [facility] CBC WITH DIFF 2021-10-07 23:55:00 Hilario [facility] CBC WITH DIFF 2021-10-07 23:55:00 Eyada, [facility] CBC WITH DIFF 2021-10-07 23:55:00 Eyada [facility] PREPARE PACKED RBC 2021-10-07 21:08:[address] [facility] PREPARE PACKED RBC 2021-10-07 21:08:[address] [facility] PREPARE PACKED RBC 2021-10-07 21:08:[address] [facility] SURGICAL PATHOLOGY EXAM 2021-10-07 20:37:[address] [facility] TRANSFUSE PACKED RBC 2021-10-07 17:19:00 [facility] TRANSFUSE PACKED RBC 2021-10-07 17:19:00 [facility] TRANSFUSE PACKED RBC 2021-10-07 17:19:00 [facility] INTUBATION 2021-10-07 16:49:00 Ronald [facility] LAPAROSCOPIC TOTAL 2021-10-07 16:12:00 [facility] HYSTERECTOMY Medical [facility] ranch LAPAROSCOPIC 2021-10-07 16:12:00 [facility] SALPINGO-OOPHORECTOMY Medical Br anch CYSTOSCOPY 2021-10-07 16:12:00 [facility] LAPAROSCOPIC TOTAL 2021-10-07 16:12:00 [facility] ABDOMINAL HYSTERECTOMY [facility] LAPAROSCOPIC 2021-10-07 16:12:00 Florencio Lr [facility] SALPINGO-OOPHORECTOMY Medical Br anch CYSTOSCOPY 2021-10-07 16:12:00 Florencio Lr [facility] COMP. METABOLIC PANEL 2021-10-07 11:41:00 Alison Zamorano [facility] ([id number]) [facility] COMP. METABOLIC PANEL 2021-10-07 11:41:00 Alison Zamorano [facility] ([id number]) [facility] COMP. METABOLIC PANEL 2021-10-07 11:41:00 Alison Zamorano [facility] ([id number] CBC WITH DIFF 2021-10-07 00:30:00 Alison Zamorano [facility] PROTHROMBIN TIME / INR 2021-10-07 00:30:00 Alison Zamorano [facility] ACTIVATED PARTIAL THRMPLAS 2021-10-07 00:30:00 [facility] FIB[facility] 2021-10-07 00:30:00 Alison Zamorano [facility] CBC WITH DIFF 2021-10-07 00:30:00 Alison Zamorano [facility] PROTHROMBIN TIME / INR 2021-10-07 00:30:00 Alison Zamorano [facility] ACTIVATED PARTIAL THRMPLAS 2021-10-07 00:30:00 [facility] FIB[facility]EN 2021-10-07 00:30:00 Alison Zamorano [facility] CBC WITH DIFF 2021-10-07 00:30:00 Alison Zamorano [facility] PROTHROMBIN TIME / INR 2021-10-07 00:30:00 Alison Zamorano [facility] ACTIVATED PARTIAL THRMPLAS 2021-10-07 00:30:00 [facility] FIBRIN[facility]EN 2021-10-07 00:30:00 Alison Zamorano [facility] HB ABO GROUPING 2021-10-06 21:00:00 Naga [facility] HB ABO GROUPING 2021-10-06 21:00:00 Naga [facility] HB ABO GROUPING 2021-10-06 21:00:00 Naga [facility] POCT TEST 2021-10-06 20:12:[address] [facility] POCT TEST 2021-10-06 20:12:[address] [facility] POCT TEST 2021-10-06 20:12:[address] [facility] COVID-19 (ID NOW RAPID 2021-10-06 20:09:[address] [facility] TESTING) Medical Branch LAB ONLY COVID 2021-10-06 20:09:00 Florencio Lr [facility] INTERPRETATION Medical Branch COVID-19 (ID NOW RAPID 2021-10-06 20:09:[address] [facility] TESTING) Medical Branch LAB ONLY COVID 2021-10-06 20:09:00 Florencio Lr [facility] Medical Branch COVID-19 (ID NOW RAPID 2021-10-06 20:09:[address] [facility] TESTING) Medical Branch LAB ONLY COVID 2021-10-06 20:09:00 Florencio Lr [facility] INTERPRETATION Medical Branch HOSPITAL ADMISSION 2021-10-06 05:01:00 Doctor Unassigned, [facility] [place] [facility] Plan of Care Planned Activity Planned Date Details Comments Source Future Scheduled 2023-05-[address] [facility] Test 00:00:00 Counseling and Screening Med ical Center (12+) [code = Tobacco Cessation Counseling and Screening (12+)] Future Scheduled 2023-05-[address] [facility] Test 00:00:00 Counseling and Screening Med ical Center (12+) [code = Tobacco Cessation Counseling and Screening (12+)] Future Scheduled 2022-12-16 Influenza Vaccine (#1) [facility] 00:00:00 [code = Influenza Vaccine Me dical Center (#1)] Future Scheduled 2022-04-[address] [facility] Test 00:00:00 (12+) [code = DEPRESSION Med ical Center SCREENING (12+)] Future Scheduled 2022-04-[address] [facility] Test 00:00:00 (12+) [code = DEPRESSION Med ical Center SCREENING (12+)] Future Scheduled 2021-12-16 INFLUENZA VACCINE (#1) [facility] 00:00:00 [code = INFLUENZA VACCINE Me dical Center (#1)] Future Scheduled 2005 Screening for malignant [facility] Test 00:00:00 neoplasm of cervix Medical C enter (procedure) [code = 582779335] Future Scheduled 2005 Screening for malignant [facility] Test 00:00:00 neoplasm of cervix Medical C enter (procedure) [code = 980149344] Future Scheduled 2003-06-23 DTAP/TDAP/TD VACCINES ([address] [facility] 00:00:00 - Tdap) [code = Medical Cent er DTAP/TDAP/TD VACCINES (1 - Tdap)] Future Scheduled 2003-06-23 DTAP/TDAP/TD VACCINES ([address] [facility] 00:00:00 - Tdap) [code = Medical Cent er DTAP/TDAP/TD VACCINES (1 - Tdap)] Future Scheduled 2002 HEPATITIS C [facility]CRE[facility]ING [facility] 00:00:00 [code = HEPATITIS C Medical Center SCREENING] Future Scheduled 2002 HEPATITIS C [facility] 00:00:00 [code = HEPATITIS C Medical Center SCREENING] Future Scheduled 1999-06-[address] [facility] 00:00:00 virus screening Medical Cent er (procedure) [code = 918417754] Future Scheduled 1984 COVID-19 VACCINE (#1) [facility] 00:00:00 [code = COVID-19 VACCINE Med ical Center (#1)] Future Scheduled 1984 COVID-19 VACCINE (#1) [facility] 00:00:00 [code = COVID-19 VACCINE Med ical Center (#1)] Encounters Start End Encounter Admission Attending Care Care Encounter Source Date/Time Date/Time Type Type Clinicians Facility Department ID 2021-10-06 Inpatient [facility] BATTERY ENGINEER [id number] Univers 14:42[facility]00 [facility] 1.2.840.1 [id number] Univers 14:42:00 Encounter Florencio [id number] [facility] 3.104.2.7 [place] .3.362416 Medica l .8 Branch 2021-10-06 Inpatient R [facility] BATTERY ENGINEER [id number] [facility]:42[facility]-03 Inpatient UR Maria G, HCAWH INTE [id number] [facility] 03:53:[address] 2023-02-11 2023-02-11 Outpatient GC_GCBZW_Ka PRIV PRIV [id number] [facility] 00:00:00 00:00:00 diyala_S [id number] Medic al 2023-02-10 2023-02-10 Outpatient GC_GCBZW_Ka PRIV PRIV [id number] [facility] 00:00:00 00:00:00 diyala_S [id number] Medic al 2022-05-01 2022-05-06 Inpatient UR CIVUNASHLYNNTA [facility] Hematology 2 [id number] [facility] 22:51:00 12:28:00 , [facility] 2022-05-01 2022-05-06 [facility] Jd Shirley [facility] [id number] [facility] 22:51:00 12:28:00 [facility] 2022-05-01 2022-05-06 [facility] Jd Shirley [facility] [id number] 22:51:00 12:28:00 [facility] 2022-05-04 2022-05-04 Surgery Gilbert [facility] [id number] 08:00:00 09:00:00 [facility] 2022-05-04 2022-05-04 Surgery Gilbert [facility] [id number] 08:00:00 09:00:00 [facility] 2022-05-04 2022-05-04 Anesthesia Hernesto Palencia [facility] [id number] 08:08:00 08:57:00 Event Du Andrade [facility] 2022-05-04 2022-05-04 Anesthesia Hernesto Palencia [facility] [id number] 08:08:00 08:57:00 Event Du Andrade [facility] 2022-05-02 2022-05-02 Travel [facility] [id number] [facility]00 00:00:00 [facility] 2022-05-02 2022-05-02 Travel [facility] [id number] [facility] 00:[facility] 00:00:00 [facility] 2022-02-17 2022-02-17 Patient Po Inga MARY 1.2.840.114 [id number] Univers 00:00:00 00:00:00 Outreach E ARCE 350.1.13.10 [place] [id number] [facility] 403 Branch 2021-11-03 2021-11-03 Telephone ROSSY Loco 1.2.840.114 [id number] Univers 00:00:00 00:00:00 Ruthy Y HEALTH 350.1.13.10 i ty of [place] [phone] [facility] 113 Branch 2021-10-29 2021-10-[address] [facility] [id number] Univers 14:15:00 14:15:00 ity [facility] 2021-10-21 2021-10-21 [facility] [id number] Univers 14:45:00 14:45:00 NICOLE ity [facility] 2021-10-21 2021-10-21 Telephone Pgy3 UNIVERSIT 1.2.840.114 [id number] Univers 00:00:00 00:00:00 Y HEALTH 350.1.13.10 i ty [place] [id number] [facility] 113 Branch 2021-10-13 2021-10-13 Transition MARY Richard 1.2.840.114 [id number] Univers 00:00:00 00:00:00 of Care Sandi ARCE 350.1.13.10 [place] [id number] [facility] 403 Branch 2021-10-13 2021-10-13 Transition MARY Richard 1.2.840.114 [id number] Univers 00:00:00 00:00:00 of Care Sandi DE LEONY 350.1.13.10 ity [place] [phone] [facility] 403 Branch 2021-10-13 2021-10-13 Patient Doctor JARAD 1.2.840.114 [id number] Univers 00:00:00 00:00:00 Secure Msg Unassigned, ISRAEL 350.1.13.10 ity of [place] [facility] 4.2.7.2.686 Eladio as [phone] [facility] 019 Branch 2021-10-06 2021-10-12 Inpatient R ALDAIR, [facility] [[email or web address] BATTERY ENGINEER [id number] Univers 14:42:00 14:14:00 NGOC ity of [facility] 2021-10-06 2021-10-12 Hospital Florencio Lr 1.2. 840.114 [id number] Univers 14:42:00 14:14:00 Encounter Ngoc Quinteros 350.1.13.10 ity of [facility] 4.2.7.2.686 Eladio as [id number] [facility] 091 Branch 2021-10-08 2021-10-08 Surgery OC Merino 1.2.840.114 [id number] Univers 01:30:00 03:41:00 Judi Milvia WOOD 350.1.13.10 it y of HOSPITAL 4.2.7.2.686 Eladio as [id number] [facility] 103 Branch 2021-10-07 2021-10-07 Surgery Be, 1.2.840.6 [id number] Univers 11:40:00 16:17:00 Florencio 11132.1.1 ity of [facility] 3.104.2.7 [place] .3.586661 Medica l .8 Branch 2021-10-07 2021-10-07 Surgery OC Lr 1.2.840.114 [id number] Univers 11:40:00 16:17:00 Matiasrudy WOOD 350.1.13.10 it y of [facility] 4.2.7.2.686 Eladio as [id number] [facility] 103 Branch 2021-10-07 2021-10-07 Anesthesia Johanny Martel 1.2.840.114 [id number] Univers 11:39:00 15:55:00 Event Chanel Fabian 350.1.13.10 ity of [facility] 4.2.7.2.686 Eladio as [phone] [facility] 103 Branch 2021-10-06 2021-10-06 Orders Doctor JARAD 1.2.840.114 [id number] Univers 00:00:00 00:00:00 Only Unassigned, ISRAEL 350.1.13.10 ity of [place] [facility] 4.2.7.2.686 Eladio as [phone] [facility] 009 Branch 2021-10-05 2021-10-05 Travel 1.2.840.1 1.2.510.873 [id number] Univers 00:00:00 00:00:00 27187.1.1 350.1.13.10 ity of 3.104.2.7 4[place].3.698 [place] .3.447958 084.8 Medica l .8 Branch 2021-10-04 2021-10-04 Transition [place], 1.2.840.4 [id number] Univers 00:00:00 00:00:00 of Care Erma M 59829.1.1 ity of 3.104.2.7 [place] .3.902377 Medica l .8 Branch 2021-10-04 2021-10-04 Patient Anthony, 1.2.840.9 [id number] Univers 00:00:00 00:00:00 Secure Msg Matias 40149.1.1 i ty of 3.104.2.7 [place] .3.132406 Medica l .8 Branch 2021-09-27 2021-10-02 Inpatient X CRUZ, [facility] [[email or web address]] BATTERY ENGINEER [id number] Univers 20:32:00 05:30:00 MATIAS ity of [facility] 2021-09-27 2021-10-02 Inpatient X ANTHONY, [facility] [[email or web address]] BATTERY ENGINEER [id number] Univers 20:32:00 05:30:00 MATIAS ity [facility] 2021-09-27 2021-10-02 Hospital Anthony, 1.2.840.4 [id number] Univers 20:32:00 05:30:00 Encounter Matias 14199.1.1 it y of 3.104.2.7 [place] .3.055067 Medica l .8 [place] 2021-09-27 2021-09-27 Travel 1.2.840.1 1.2.571.639 [id number] Univers 00:00:00 00:00:00 44581.1.1 350.1.13.10 ity of 3.104.2.7 4[place].3.698 [place] .3.275766 084.8 Medica l .8 [place] 2021-09-14 2021-09-14 [facility] [id number] Univers 14:00:00 14:00:00 [facility] 2021-09-14 2021-09-14 [facility] [id number] Univers 14:00:00 14:00:00 [facility] 2021-09-14 2021-09-14 Patient Doctor UNIVERSIT 1.2.436.680 [id number] Univers 00:00:00 00:00:00 Secure Msg Unassigned, Y HEALTH 350.1.13.10 ity of [place] [facility] 4.2.7.[place] [phone] [facility] 113 [place] 2021-09-04 2021-09-04 Orders Doctor 1.2.840.2 [id number] Univers 00:00:00 00:00:00 Only Unassigned, 23054.1.1 ity of [place] 3.104.2.7 [place] .3.071374 Medica l .8 [place] 2021-08-27 2021-08-27 Transition Richard, 1.2.840.3 [id number] Univers 00:00:00 00:00:00 of Care Sandi 52090.1.1 i ty of 3.104.2.7 [place] .3.546218 Medica l .8 [place] 2021-08-24 2021-08-26 [facility] [id number] Univers 03:17:00 15:30:00 MATIAS ity of [facility] 2021-08-24 2021-08-26 Inpatient [facility] BATTER[facility]INE[facility] [id number] Univers 03:17:00 15:30:00 MATIAS ity of [facility] 2021-08-24 2021-08-26 [facility], 1.2.840.5 [id number] Univers 03:17:00 15:30:00 Encounter Matias 41189.1.1 it y of [place] 3.104.2.7 [place] .3.718161 Medica l .8 [place] 2021-08-24 2021-08-24 Travel 1.2.840.1 1.2.354.225 [id number] Univers 00:00:00 00:00:00 08764.1.1 350.1.13.10 ity of 3.104.2.7 4[place].7.3.698 [place] .3.123698 084.8 Medica l .8 [place] 2021-05-04 2021-05-05 Emergency EM Zahl, [facility] MEDI.01 [id number] [facility] 01:14:00 14:01:00 [facility] 2021-03-02 2021-03-02 Emergency X [facility] [[email or web address]] ERT [id number] Univers 22:11:00 22:41:00 ity of [facility] 2020-08-25 2020-08-26 Outpatient E RENE, [facility] [id number] Memoria 02:37:00 18:00:00 DEBRA Roque l 2020-07-06 2020-07-06 Patient Chato [facility] [[email or web address]] 1.2.840.114 [id number] Univers 00:00:00 00:00:00 Outreach Bird WANG 350.1.13.10 i ty of [place] AGU[place] [id number] Ms dical 388 [place] 2019-07-13 2019-07-13 Nurse JARAD Douglas 1.2.840.114 [id number] 00:00:00 00:00:00 Triage Aracelis [place]RA[place] [address].13.[address]686 [id number] 019 2019-07-13 2019-07-13 JARAD Santamaria 1.2.840.114 [id number] 00:00:00 00:00:00 Triage Melinda D [place] 350.1.13.10 [place] [id number] [id number] 2019-07-13 2019-07-13 Nurse JARAD Douglas 1.2.840.114 [id number] [facility] 00:00:00 00:00:00 Triage Aracelis ISRAEL 350.1.13.10 it y of [place] [id number] Eladio as [phone] [address] 2019-07-13 2019-07-13 JARAD Santamaria 1.2.840.114 [id number] [facility] 00:00:00 00:00:00 Triage Melinda D ISRAEL 350.1.13.10 i ty Amy [place] [address].2.686 Eladio as [phone] [address] 2018-12-31 2019-01-01 [facility].2[facility]010 [id number] 21:55:55 14:19:00 Encounter Jesse WOOD 350.1.13.10 ANNEX 4.2.7.2.686 [id number] [facility] 2018-12-31 2019-01-01 [facility] 1.2.006.286 [id number] [facility] 21:55:55 14:19:00 Encounter Jesse WOOD 350.1.13.10 ity of [place] [phone] [address] 2018-12-31 2018-12-31 Nurse Visit, [facility] [[email or web address]] 1.2.840.114 [id number] 15:10:27 15:53:[address] [facility] MATERIAL CONTROL MANAGER 350.1.13.10 Nurse REGIONAL 4.2.7.2.686 MATERNAL [phone] & CHILD 107 [facility] 2018-12-31 2018-12-31 [facility] [[email or web address]] 1.2 .840.114 [id number] [facility] 15:10:27 15:53:28 Visit Allie Miller MATERIAL CONTROL MANAGER 350.1.13. 10 ity of REGIONAL 4.2.7.2.686 Eladio as MATERNAL [phone] Med ical & CHILD [address] [place] [address] 2018-12-31 2018-12-31 Telephone Roger [facility] [[email or web address]] 1.2.840.114 [id number] 00:00:00 00:00:00 Rimma Guadalupe MATERIAL CONTROL MANAGER 350.1.13.10 [facility] 4.2.7.2.686 MATERNAL [phone] & CHILD [address] [place] [address] 2018-12-31 2018-12-31 Telephone JARAD Upton 1.2.840.114 [id number] 00:00:00 00:00:00 Gilson WOOD 350.1.13.10 [facility] [phone] [facility] 2018-12-31 2018-12-31 Telephone Roger [facility] [[email or web address]] 1.2.840.114 [id number] [facility] 00:00:00 00:00:00 Rimma Guadalupe MATERIAL CONTROL MANAGER 350.1.13.10 it y of [facility] 4.2.7.2.686 Eladio as MATERNAL [phone] Med ical & CHILD [address] [place] [address] 2018-12-31 2018-12-31 Telephone JARAD Upton 1.2.840.114 [id number] [facility] 00:00:00 00:00:00 Gilson WOOD 350.1.13.10 i ty of [facility] 4.2.7.2.686 Eladio as [phone] [address] 2018-12-28 2018-12-29 Emergency Rocío [facility] [[email or web address]] 1.2.503.883 [id number] 19:29:15 00:59:00 Alla Lopez 350.1.13.10 [place] 4.2.7.2.686 [place] [phone] [facility] 2018-12-28 2018-12-29 Emergency Rocío, [facility] 1.2.775.634 [id number] [facility] 19:29:15 00:59:00 Alla Lion Assonet 350.1.13.10 ity [facility] 4.2.7.2.[place] [phone] [address] 2018-12-28 2018-12-28 Nurse Visit, [facility] 1.2.840.114 [id number] 12:55:55 13:47:08 [facility] MATERIAL CONTROL MANAGER 350.1.13.10 Nurse [facility] 4.2.7.2.686 MATERNAL [phone] & CHILD 107 [facility] 2018-12-28 2018-12-28 Nurse Visit, Shanmonie Nurse [facility] [[email or web address]] 1.2 .840.114 [id number] [facility] 12:55:55 13:47:08 Visit Max Velarde MATERIAL CONTROL MANAGER 350.1.13.10 ity of [facility] 4.2.7.2.686 Eladio as MATERNAL [phone] Med ical & CHILD [address] [place] [address] 2018-12-20 2018-12-24 [facility] JARAD Lizama 1.2.840.114 [id number] 18:42:00 13:40:00 Encounter Ree ISRAEL 350.1.13.10 [place] 4.2.7.2.686 [id number] [id number] 2018-12-20 2018-12-24 [facility] JARAD Lizama 1.2.840.114 [id number] Univers 18:42:00 13:40:00 Encounter Ree ISRAEL 350.1.13.10 ity of [facility] 4.2.7.2.[place] [phone] [address] 2018-12-20 2018-12-20 G[employer]med Tape Press Operator Ultrasound, NEMB 1.2.840.114 [id number] 11:12:37 11:42:37 Visit Shankings MATERIAL CONTROL MANAGER 350.1.13.10 [facility] 4.2.7.2.686 MATERNAL [phone] & CHILD 369 [facility] 2018-12-20 2018-12-20 G[employer] T[employer] Press Operator Ultrasound, Shankings [facility] 1.2 .840.114 [id number] Univers 11:12:37 11:42:37 Visit Mila Ferguson MATERIAL CONTROL MANAGER 350.1.13.10 ity of Jesse Woods REGIONAL 4.2.7.2.686 [place] MATERNAL [phone] Med ical & CHILD 369 [facility] 2018-12-20 2018-12-20 Routine Risk, [facility] 1.2.840.114 [id number] 10:20:16 11:05:03 Ang-Rmchp-N MATERIAL CONTROL MANAGER 350.1.13.10 Visit p/High REGIONAL 4.2.7.2.686 MATERNAL [phone] & CHILD [address] [place] [address] 2018-12-20 2018-12-20 Routine Risk, Nnl-Izvnx-Hj/High [facility] 1. 2.840.114 [id number] Univers 10:20:16 11:05:03 Mila Ferguson MATERIAL CONTROL MANAGER 350.1.13.10 ity of Visit REGIONAL 4.2.7.2.686 Eladio as MATERNAL [phone] Med ical & CHILD [address] [place] [address] 2018-12-18 2018-12-18 Routine Velarde [facility] [[email or web address]] 1.2.840.114 [id number] 12:50:29 14:00:55 Roshunda R MATERIAL CONTROL MANAGER 350.1.13.10 Visit REGIONAL 4.2.7.2.686 MATERNAL [phone] & CHILD [address] [place] [address] 2018-12-18 2018-12-18 Routine Velarde, [facility] [[email or web address]] 1.2.840.114 [id number] Univers 12:50:29 14:00:55 Roshunda R MATERIAL CONTROL MANAGER 350.1.13.10 ity of Visit REGIONAL 4.2.7.2.686 Eladio as MATERNAL [phone] [facility] ical & CHILD [address] [place] [address] 2018-12-13 2018-12-13 Routine [place], [facility] UNIVERSIT 1.2.840.114 [id number] 13:28:19 14:24:11 Resident HEALTH 350.1.13.10 Visit CLINICS 4.2.7.2.686 [phone] 113 2018-12-13 2018-12-13 Routine Pool, [facility] Resident UN[facility]ERSIT 1.2.8 40.114 [id number] Univers 13:28:19 14:24:11 Inga Moore [facility] 350.1. 13.10 ity of Visit Jesse Woods [facility] 4.2.7.2.686 [place] Chacorta Clark [phone] [facility] [address] 2018-12-13 2018-12-13 G[employer]med Tape Press Operator 2, [facility] UNIVERSIT 1.2.840.11 [id number] 12:48:28 13:23:20 Visit Usg Room HEALTH 350.1.13.10 CLINICS 4.2.7.2.686 [phone] 104 2018-12-13 2018-12-13 Gummed Tape Press Operator 2, [facility] Room UNIVERSIT 1 .2.840.114 [id number] Univers 12:48:28 13:23:20 Visit Inga Moore [facility] 350.1.1 3.10 ity [facility] 4.2.7.2.686 [place] [phone] [facility] [address] 2018-12-13 2018-12-13 Orders Doctor JARAD 1.2.840.114 [id number] 00:00:00 00:00:00 Only Unassigned, ISRAEL 350.1.13.10 [facility] 4.2.7.2.686 [id number] 009 2018-12-13 2018-12-13 Orders Doctor JARAD 1.2.840.114 [id number] Univers 00:00:00 00:00:00 Only Unassigned, ISRAEL 350.1.13.10 ity of [facility] 4.2.7.2.686 Eladio as [phone] [facility] [address] 2018-12-11 2018-12-11 Case JARAD Chris 1.2.840.114 [id number] 00:00:00 00:00:00 Management Ruba ISRAEL 350.1.13.10 HOSPITAL 4.2.7.2.686 [id number] 013 2018-12-11 2018-12-11 Case JARAD Chris 1.2.840.114 [id number] Univers 00:00:00 00:00:00 Management Ruba SEALY 350.1.13.10 ity of [facility] 4.2.7.2.686 Eladio as [phone] [address] 2018-12-10 2018-12-10 Routine Faculty, [facility] 1.2.840.114 [id number] 10:35:35 11:46:44 Ang Rmp MATERIAL CONTROL MANAGER 350.1.13.10 Visit [facility] 4.2.7.2.686 MATERNAL [phone] & CHILD 107 [facility] 2018-12-10 2018-12-10 Routine Faculty, Ad Beachchjayesh [facility] 1.2 .840.114 [id number] [facility] 10:35:35 11:46:44 Jesse Woods MATERIAL CONTROL MANAGER 350.1.13.10 ity of Visit [facility] 4.2.7.2.686 Eladio as MATERNAL [phone] [facility] ical & CHILD 107 [facility] 2018-12-06 2018-12-06 Gummed Tape Press Operator Ultrasound, [facility] 1.2.840.114 [id number] 11:40:06 12:10:06 [facility] MATERIAL CONTROL MANAGER 350.1.13.10 [facility] 4.2.7.2.686 MATERNAL [phone] & CHILD 369 [facility] 2018-12-06 2018-12-06 Gummed Tape Press Operator Ultrasound, [facility] 1.2 .840.114 [id number] [facility] 11:40:06 12:10:06 Visit Marycruz Quevedo MATERIAL CONTROL MANAGER 350.1.13.10 ity of [facility] 4.2.7.2.686 Eladio as MATERNAL [phone] Med ical & CHILD 369 [facility] 2018-12-06 2018-12-06 Routine Risk, [facility] 1.2.840.114 [id number] 10:02:15 11:39:46 Ang-Rmchp-N MATERIAL CONTROL MANAGER 350.1.13.10 Visit p/High REGIONAL 4.2.7.2.686 MATERNAL [phone] & CHILD 107 [facility] 2018-12-06 2018-12-06 Routine Risk, Xlb-Ieqpz-El/High [facility] [[email or web address] 1. 2.840.114 [id number] Univers 10:02:15 11:39:46 Marycruz Quevedo MATERIAL CONTROL MANAGER 350.1.13.10 ity of Visit REGIONAL 4.2.7.2.686 Eladio as MATERNAL [phone] Med ical & CHILD 107 [facility] 2018-12-03 2018-12-03 [facility] Lorrie Olmos [facility] [[email or web address]] 1.2.840.114 [id number] 13:57:00 16:45:00 Encounter Cam Assonet 350.1.13.10 [place] 4.2.7.2.686 [place] [phone] [facility] 2018-12-03 2018-12-03 [facility] Lorrie Olmos [facility] [[email or web address]] 1.2.840.114 [id number] [facility] 13:57:00 16:45:00 Encounter Cam Assonet 350.1.13.10 ity of [place] 4.2.7.2.[place] [phone] [address] 2018-12-03 2018-12-03 Routine Faculty, [facility] [[email or web address]] 1.2.840.114 [id number] 09:27:42 10:36:46 Ang Rmchp MATERIAL CONTROL MANAGER 350.1.13.10 Visit [facility] 4.2.7.2.686 MATERNAL [id number] & CHILD 107 [facility] 2018-12-03 2018-12-03 Routine Faculty, Ang Rmchp [facility] 1.2 .840.114 [id number] [facility] 09:27:42 10:36:46 Kyle Cordreo MATERIAL CONTROL MANAGER 350.1.13. 10 ity of Visit REGIONAL 4.2.7.2.686 Eladio as MATERNAL [phone] Med ical & CHILD 107 [facility] 2018-11-29 2018-11-29 Routine Risk, [facility] [[email or web address]] 1.2.840.114 [id number] 12:45:37 13:38:16 Ang-Rmchp-N MATERIAL CONTROL MANAGER 350.1.13.10 Visit p/High REGIONAL 4.2.7.2.686 MATERNAL [id number] & CHILD 107 [facility] 2018-11-29 2018-11-29 Routine Risk, Nwc-Alppr-Pr/High [place] 1. 2.840.114 [id number] Univers 12:45:37 13:38:16 Mila Ferguson MATERIAL CONTROL MANAGER 350.1.13.10 ity of Visit REGIONAL 4.2.7.2.686 Eladio as MATERNAL [phone] [facility] ical & CHILD 107 [facility] 2018-11-29 2018-11-29 Gummed Tape Press Operator Ultrasound, [facility] 1.2 .840.114 [id number] Univers 11:09:01 11:48:17 Visit Calvin Patel MATERIAL CONTROL MANAGER 350.1.13.10 ity of REGIONAL 4.2.7.2.686 Eladio as MATERNAL [phone] [facility] ical & CHILD 369 [facility] 2018-11-26 2018-11-26 Routine Faculty, Ad Beachjayesh [facility] 1.2 .840.114 [id number] Univers 10:07:03 11:06:11 Inga Moore MATERIAL CONTROL MANAGER 350.1.1 3.10 ity of Visit REGIONAL 4.2.7.2.686 Eladio as MATERNAL [phone] [facility] ical & CHILD [address] [place] [address] 2018-11-22 2018-11-22 Gummed Tape Press Operator 5, [facility] Us Room UNIVERSIT 1 .2.840.114 [id number] Univers 10:44:00 11:48:35 Visit Inga Moore [facility] 350.1.1 3.10 ity of Alison Reis [facility] 4.2.7.2.686 [place] [phone] [facility] [address] [place] 2018-11-22 2018-11-22 Routine Roger, [facility] [[email or web address]] 1.2.840.120 [id number] Univers 08:04:45 09:05:49 Rimma Guadalupe MATERIAL CONTROL MANAGER 350.1.13.10 i ty of Visit REGIONAL 4.2.7.2.686 Eladio as MATERNAL [phone] [facility] ical & CHILD [address] [place] [address] 2018-11-19 2018-11-19 Hospital Lorrie Olmos [facility] [[email or web address]] 1.2.840.114 [id number] Univers 12:24:36 16:05:00 Encounter Damien Assonet 350.1.13.10 ity of [place] 4.2.7.2.[place] [id number] [facility] [address] [place] 2018-11-19 2018-11-19 Routine Faculty, Ad Beachjayesh [facility] 1.2 .840.114 [id number] Univers 09:18:45 10:07:14 Alison Reis MATERIAL CONTROL MANAGER 350.1.13.10 ity of Visit [facility] 4.2.7.2.686 Eladio as MATERNAL [phone] [facility] ical & CHILD [address] [place] [address] 2018-11-15 2018-11-15 Routine Faculty, Ad [facility] 1.2 .840.114 [id number] Univers 13:56:25 15:11:31 Rj, Modesto F MATERIAL CONTROL MANAGER 350.1.13.10 ity of Visit [facility] 4.2.7.2.686 Eladio as MATERNAL [phone] [facility] ical & CHILD [address] [place] [address] 2018-11-14 2018-11-14 Gummed Tape Press Operator Ultrasound, [facility] 1.2 .840.114 [id number] Univers 10:38:34 11:32:09 Visit Alison Reis MATERIAL CONTROL MANAGER 350.1.13.10 ity of REGIONAL 4.2.7.2.686 Eladio as MATERNAL [phone] [facility] ical & CHILD 369 [facility] 2018-11-12 2018-11-12 Routine Faculty, Ad [facility] 1.2 .840.114 [id number] Univers 10:38:07 12:09:10 TeresaInga MATERIAL CONTROL MANAGER 350.1.1 3.10 ity of Visit REGIONAL 4.2.7.2.686 Eladio as MATERNAL [phone] [facility] ical & CHILD [address] [place] [address] 2018-11-01 2018-11-01 Case LITTLE Woodall 1.2.719.376 [id number] Univers 00:00:00 00:00:00 Management Vidhi HEALTH 350.1.13.10 ity of CLINICS 4.2.7.2.[place] [phone] [facility] [address] Results Test Description Test Time Test Comments Results Result Comments Source BASIC METABOLIC PANEL 2022-05-06 08:06:12 Test Item Value Reference Range Interpretation Comme nts SODIUM (BEAKER) (test 138 meq/L 136-145 code = 381) POTASSIUM (BEAKER) 4.1 meq/L 3.5-5.1 (test code = 379) CHLORIDE (BEAKER) (test 110 meq/L 98-107 H code = 382) CO2 (BEAKER) (test code 23 meq/L 22-29 = 355) BLOOD UREA NITROGEN 9 mg/dL 7-21 (BEAKER) (test code = 354) CREATININE (BEAKER) 0.56 mg/dL 0.57-1.25 L (test code = 358) GLUCOSE RANDOM (BEAKER) 101 mg/dL 70-105 (test code = 652) CALCIUM (BEAKER) (test 8.0 mg/dL 8.4-10.2 L code = 697) EGFR (BEAKER) (test 120 mL/min/1.73 sq I nterpretation of eGFR values code = 1092) m Stage Descripti on Result G1 Normal or high >=90 G2 Mildly decreased 60-89 G3a Mildly to moderately 45- 59 G3b Moderately to severely 30- 44 G4 Severly decreased 15-29 G5 Kidney failure <15Repo rted eGFR is based on the CK D-EPI 2020 equation that d oes not use a race coefficien tEstimated GFR is not as accurate as Creatinine Clearance in pr edicting glomerular filt ration rate. Estimated GFR i s not applicable for dialysis key norris [employer] ID - RENEE GCBC W/PLT COUNT & AUTO [id number] 06:27:43 Test Item Value Reference Range Interpretation Comments WHITE BLOOD CELL COUNT (BEAKER) 4.7 K/ L 3.5-10.5 (test code = 775) RED BLOOD CELL COUNT (BEAKER) 2.34 M/ L 3.93-5.22 L (test code = 761) HEMOGLOBIN (BEAKER) (test code = 7.0 GM/DL 11.2-15.7 L 410) HEMATOCRIT (BEAKER) (test code = 22.9 % 34.1-44.9 L 411) MEAN CORPUSCULAR VOLUME (BEAKER) 98 fL 79-95 H (test code = 753) MEAN CORPUSCULAR HEMOGLOBIN 29.9 pg 25.6-32.2 (BEAKER) (test code = 751) MEAN CORPUSCULAR HEMOGLOBIN CONC 30.6 GM/DL 32.2-35.5 L (BEAKER) (test code = 752) RED CELL DISTRIBUTION WIDTH 24.2 % 11.7-14.4 H (BEAKER) (test code = 412) PLATELET COUNT (BEAKER) (test 116 K/CU MM 150-450 L code = 756) MEAN PLATELET VOLUME (BEAKER) 11.0 fL 9.4-12.3 (test code = 754) NUCLEATED RED BLOOD CELLS 0 /100 WBC 0-0 (BEAKER) (test code = 413) NEUTROPHILS RELATIVE PERCENT 61 % (BEAKER) (test code = 429) LYMPHOCYTES RELATIVE PERCENT 26 % (BEAKER) (test code = 430) MONOCYTES RELATIVE PERCENT 10 % (BEAKER) (test code = 431) EOSINOPHILS RELATIVE PERCENT 1 % (BEAKER) (test code = 432) BASOPHILS RELATIVE PERCENT 0 % (BEAKER) (test code = 437) NEUTROPHILS ABSOLUTE COUNT 2.84 K/ L 1.56-6.13 (BEAKER) (test code = 670) LYMPHOCYTES ABSOLUTE COUNT 1.23 K/ L 1.18-3.74 (BEAKER) (test code = 414) MONOCYTES ABSOLUTE COUNT (BEAKER) 0.45 K/ L 0.24-0.36 H (test code = 415) EOSINOPHILS ABSOLUTE COUNT 0.06 K/ L 0.04-0.36 (BEAKER) (test code = 416) BASOPHILS ABSOLUTE COUNT (BEAKER) 0.01 K/ L 0.01-0.08 (test code = 417) IMMATURE GRANULOCYTES-RELATIVE 1.50 % 0.00-1.00 H PERCENT (BEAKER) (test code = 2801) BASIC METABOLIC [id number] 04:11:34 Test Item Value Reference Range Interpretation Comments SODIUM (BEAKER) 137 meq/L 136-145 (test code = 381) POTASSIUM 3.8 meq/L 3.5-5.1 (BEAKER) (test code = 379) CHLORIDE (BEAKER) 106 meq/L 98-107 (test code = 382) CO2 (BEAKER) 23 meq/L 22-29 (test code = 355) BLOOD UREA 9 mg/dL 7-21 NITROGEN (BEAKER) (test code = 354) CREATININE 0.49 mg/dL 0.57-1.25 L (BEAKER) (test code = 358) GLUCOSE RANDOM 100 mg/dL 70-105 (BEAKER) (test code = 652) CALCIUM (BEAKER) 8.3 mg/dL 8.4-10.2 L (test code = 697) EGFR (BEAKER) 124 Interpretatio n of eGFR (test code = mL/min/1.73 values Stage De scription 1092) sq m Result G1 Jackie l or high >=90 G2 Mildly decreased 60-89 G3a Mild ly to moderately 45-5 9 G3b Moderately to s everely 30-44 G4 Severl y decreased 15-29 G5 Kidney failure <15Reported eGF R is based on the CKD-EPI 2020 equation that d oes not use a race coefficientEsti mated GFR is not as accur ate as Creatinine Cookie lacy in predicting glom erular filtration rate . Estimated GFR is not appl icable for dialysis patien ts [employer] ID - BSCBC W/PLT COUNT & AUTO [id number] 03:58:06 Test Item Value Reference Range Interpretation Comments WHITE BLOOD CELL COUNT 5.4 K/ L 3.5-10.5 (BEAKER) (test code = 775) RED BLOOD CELL COUNT 2.63 M/ L 3.93-5.22 L (BEAKER) (test code = 761) HEMOGLOBIN (BEAKER) 7.7 GM/DL 11.2-15.7 L (test code = 410) HEMATOCRIT (BEAKER) 25.2 % 34.1-44.9 L (test code = 411) MEAN CORPUSCULAR 96 fL 79-95 H Discordant MCV VOLUME (BEAKER) (test result s compared to code = 753) previous result s; clinical correl ation required MEAN CORPUSCULAR 29.3 pg 25.6-32.2 HEMOGLOBIN (BEAKER) (test code = 751) MEAN CORPUSCULAR 30.6 GM/DL 32.2-35.5 L HEMOGLOBIN CONC (BEAKER) (test code = 752) RED CELL DISTRIBUTION 24.7 % 11.7-14.4 H WIDTH (BEAKER) (test code = 412) PLATELET COUNT 117 K/CU MM 150-450 L (BEAKER) (test code = 756) MEAN PLATELET VOLUME 11.2 fL 9.4-12.3 (BEAKER) (test code = 754) NUCLEATED RED BLOOD 1 /100 WBC 0-0 H CELLS (BEAKER) (test code = 413) NEUTROPHILS RELATIVE 59 % PERCENT (BEAKER) (test code = 429) LYMPHOCYTES RELATIVE 27 % PERCENT (BEAKER) (test code = 430) MONOCYTES RELATIVE 10 % PERCENT (BEAKER) (test code = 431) EOSINOPHILS RELATIVE 1 % PERCENT (BEAKER) (test code = 432) BASOPHILS RELATIVE 0 % PERCENT (BEAKER) (test code = 437) NEUTROPHILS ABSOLUTE 3.19 K/ L 1.56-6.13 COUNT (BEAKER) (test code = 670) LYMPHOCYTES ABSOLUTE 1.47 K/ L 1.18-3.74 COUNT (BEAKER) (test code = 414) MONOCYTES ABSOLUTE 0.56 K/ L 0.24-0.36 H COUNT (BEAKER) (test code = 415) EOSINOPHILS ABSOLUTE 0.07 K/ L 0.04-0.36 COUNT (BEAKER) (test code = 416) BASOPHILS ABSOLUTE 0.01 K/ L 0.01-0.08 COUNT (BEAKER) (test code = 417) IMMATURE 2.20 % 0.00-1.00 H GRANULOCYTES-RELATIVE PERCENT (BEAKER) (test code = 2801) Prepare [id number] 23:55:00 Test Item Value Reference Range Interpretation Comments CROSSMATCH (test code = 2264) COMPATIBLE Unit ABO (test code = A Pos 8361898) UNIT NUMBER (test code = [id number] 934-0) Status (test code = 3927336) TX_TIMEINCHART Blood Bank Product (test code RED BLOOD CELLS = 2263) PRODUCT CODE (test code = E2638E22 933-2) [id number] 23:55:00 Test Item Value Reference Range Interpretation Comments CROSSMATCH (test code = 2264) COMPATIBLE Unit ABO (test code = A Pos 9080273) UNIT NUMBER (test code = [id number] 934-0) Status (test code = 2789446) TX_TIMEINCHART Blood Bank Product (test code RED BLOOD CELLS = 2263) PRODUCT CODE (test code = V6258E23 933-2) [facility] W/PLT COUNT & AUTO [id number] 08:30:55 Test Item Value Reference Range Interpretation Comments WHITE BLOOD CELL COUNT (BEAKER) 4.8 K/ L 3.5-10.5 (test code = 775) RED BLOOD CELL COUNT (BEAKER) 2.73 M/ L 3.93-5.22 L (test code = 761) HEMOGLOBIN (BEAKER) (test code = 8.0 GM/DL 11.2-15.7 L 410) HEMATOCRIT (BEAKER) (test code = 25.2 % 34.1-44.9 L 411) MEAN CORPUSCULAR VOLUME (BEAKER) 92 fL 79-95 (test code = 753) MEAN CORPUSCULAR HEMOGLOBIN 29.3 pg 25.6-32.2 (BEAKER) (test code = 751) MEAN CORPUSCULAR HEMOGLOBIN CONC 31.7 GM/DL 32.2-35.5 L (BEAKER) (test code = 752) RED CELL DISTRIBUTION WIDTH 23.0 % 11.7-14.4 H (BEAKER) (test code = 412) PLATELET COUNT (BEAKER) (test 109 K/CU MM 150-450 L code = 756) MEAN PLATELET VOLUME (BEAKER) 11.9 fL 9.4-12.3 (test code = 754) NUCLEATED RED BLOOD CELLS 1 /100 WBC 0-0 H (BEAKER) (test code = 413) (CELLAVISION MANUAL DIFF)2022-05-04 08:30:55 Test Item Value Reference Range Interpretation Comments NEUTROPHILS - REL 66 % (CELLAVISION)(BEAKER) (test code = 2816) LYMPHOCYTES - REL 23 % (CELLAVISION)(BEAKER) (test code = 2817) MONOCYTES - REL 5 % (CELLAVISION)(BEAKER) (test code = 2818) EOSINOPHILS - REL 2 % (CELLAVISION)(BEAKER) (test code = 2819) BASOPHILS - REL 1 % (CELLAVISION)(BEAKER) (test code = 2820) METAMYELOCYTES - REL 1 % 0-0 H (CELLAVISION)(BEAKER) (test code = 2821) MYELOCYTES - REL 1 % 0-0 H (CELLAVISION)(BEAKER) (test code = 2822) BANDS - REL (CELLAVISION)(BEAKER) 1 % 0-10 (test code = 2826) NEUTROPHILS - ABS 3.17 K/ul 1.56-6.13 (CELLAVISION)(BEAKER) (test code = 2830) LYMPHOCYTES - ABS 1.10 K/ul 1.18-3.74 L (CELLAVISION)(BEAKER) (test code = 2831) MONOCYTES - ABS 0.24 K/uL 0.24-0.36 (CELLAVISION)(BEAKER) (test code = 2832) EOSINOPHILS - ABS 0.10 K/uL 0.04-0.36 (CELLAVISION)(BEAKER) (test code = 2834) BASOPHILS - ABS 0.05 K/uL 0.01-0.08 (CELLAVISION)(BEAKER) (test code = 2835) METAMYELOCYTES - ABS 0.05 K/uL 0.00-0.00 H (CELLAVISION)(BEAKER) (test code = 2836) MYELOCYTES-ABS 0.05 K/uL 0.00-0.00 H (CELLAVISION)(BEAKER) (test code = 2837) BANDS - ABS (CELLAVISION)(BEAKER) 0.05 K/uL 0.00-0.80 (test code = 2840) TOTAL COUNTED (BEAKER) (test code 100 = 1351) MANUAL NRBC PER 100 CELLS 1 /100 WBC 0-0 H (BEAKER) (test code = 1353) PLT MORPHOLOGY (BEAKER) (test Normal code = 486) VACUOLATED NEUTROPHILS (BEAKER) Present (test code = 483) POLYCHROMATOPHILLIC RBCS(BEAKER) 2+ moderate (test code = 478) ANISOCYTOSIS (BEAKER) (test code 1+ few = 961) MICROCYTES (BEAKER) (test code = 1+ few 965) MACROCYTES (BEAKER) (test code = 1+ few 964) POIKILOCYTES (BEAKER) (test code 1+ few = 966) OVALOCYTES (BEAKER) (test code = 1+ few 477) ARTIFACT (CELLAVISION)(BEAKER) Present (test code = 3432) PLATELET CONCENTRATION Decreased (CELLAVISION)(BEAKER) (test code = 3438) [employer] ID - [id number] ID - Eboni OverholtUser comments: Slide comments:BASIC METABOLIC [id number] 08:10:20 Test Item Value Reference Range Interpretation Comments SODIUM (BEAKER) 135 meq/L 136-145 L (test code = 381) POTASSIUM 4.0 meq/L 3.5-5.1 Specimen modera tely (BEAKER) (test hemolyzed code = 379) CHLORIDE (BEAKER) 106 meq/L 98-107 (test code = 382) CO2 (BEAKER) 23 meq/L 22-29 (test code = 355) BLOOD UREA 11 mg/dL 7-21 NITROGEN (BEAKER) (test code = 354) CREATININE 0.55 mg/dL 0.57-1.25 L Specimen modera tely (BEAKER) (test hemolyzed code = 358) GLUCOSE RANDOM 97 mg/dL 70-105 (BEAKER) (test code = 652) CALCIUM (BEAKER) 8.0 mg/dL 8.4-10.2 L (test code = 697) EGFR (BEAKER) 121 Interpretatio n of eGFR (test code = mL/min/1.73 values Stage De scription 1092) sq m Result G1 Jackie l or high >=90 G2 Mildly decreased 60-89 G3a Mildl y to moderately 45-5 9 G3b Moderately to s everely 30-44 G4 Severl y decreased 15-29 G5 Kidne y failure <15Reported eGF R is based on the CKD-EPI 2020 equation that d oes not use a race coefficientEsti mated GFR is not as accur ate as Creatinine Cookie lacy in predicting glom erular filtration rate . Estimated GFR is not appl icable for dialysis patien ts [employer] ID - CASSIE WPROTHROMBIN TIME/[id number] 06:34:19 Test Item Value Reference Range Interpretation Comments PROTIME (BEAKER) 14.6 seconds 11.9-14.2 H (test code = 759) INR (BEAKER) (test 1.17 See_Comment [Automat ed message] code = 370) The system [employer] generated this result transmitted ref erence range: <=5.90. The reference range was not used to int erpret this result as normal/abnormal . RECOMMENDED COUMADIN/WARFARIN INR THERAPY RANGESSTANDARD DOSE: 2.0 - 3.0 Includes: PROPHYLAXIS for venous thrombosis, systemic embolization; TREATMENT for venous thrombosis and/or pulmonary embolus.HIGH RISK: Target INR is 2.5-3.5 for patients with mechanical heart valves.Prepare Leuko-Red PLT, 1 Units 2022-05-03 23:54:00 Test Item Value Reference Range Interpretation Comments Unit ABO (test code = 0283937) B Pos UNIT NUMBER (test code = [id number] 934-0) Status (test code = 4333516) TX_TIMEINCHART Blood Bank Product (test code PLATELETS = 2263) PRODUCT CODE (test code = I7657G12 933-2) [facility] [id number] 23:54:00 Test Item Value Reference Range Interpretation Comments Unit ABO (test code = 6642499) B Pos UNIT NUMBER (test code = [id number] 934-0) Status (test code = 0196262) TX_TIMEINCHART Blood Bank Product (test code PLATELETS = 2263) PRODUCT CODE (test code = Q0976S76 933-2) [facility] 14:31:44 Test Item Value Reference Range Interpretation Comments MAGNESIUM (BEAKER) 1.7 mg/dL 1.6-2.6 Specimen slightly (test code = 627) hemolyzed [employer] ID - ADMINCOMPREHENSIVE METABOLIC [id number] 14:31:44 Test Item Value Reference Range Interpretation Comments TOTAL PROTEIN 6.0 gm/dL 6.0-8.3 Specimen sligh tly (BEAKER) (test hemolyzed code = 770) ALBUMIN (BEAKER) 3.4 g/dL 3.5-5.0 L Specimen sl ightly (test code = 1145) hemolyzed ALKALINE 87 U/L 40-150 PHOSPHATASE (BEAKER) (test code = 346) BILIRUBIN TOTAL 1.1 mg/dL 0.2-1.2 Specimen sli ghtly (BEAKER) (test hemolyzed code = 377) SODIUM (BEAKER) 134 meq/L 136-145 L (test code = 381) POTASSIUM (BEAKER) 3.9 meq/L 3.5-5.1 Specimen slightly (test code = 379) hemolyzed CHLORIDE (BEAKER) 106 meq/L 98-107 (test code = 382) CO2 (BEAKER) (test 19 meq/L 22-29 L code = 355) BLOOD UREA 14 mg/dL 7-21 NITROGEN (BEAKER) (test code = 354) CREATININE 0.52 mg/dL 0.57-1.25 L Specimen slight ly (BEAKER) (test hemolyzed code = 358) GLUCOSE RANDOM 148 mg/dL 70-105 H (BEAKER) (test code = 652) CALCIUM (BEAKER) 8.0 mg/dL 8.4-10.2 L (test code = 697) AST (SGOT) 59 U/L 5-34 H Specimen slight ly (BEAKER) (test hemolyzed code = 353) ALT (SGPT) 40 U/L 6-55 Specimen slight ly (BEAKER) (test hemolyzed code = 347) EGFR (BEAKER) 123 Interpretatio n of eGFR (test code = 1092) mL/min/1.[address] age Description sq m Result G1 Jackie l or high >=90 G2 Mildly decreased 60-89 G3a Mildl y to moderately 45-5 9 G3b Moderately to s everely 30-44 G4 Severl y decreased 15-29 G5 Kidney failure <15Reported eGF R is based on the CKD-EPI 2020 equation that d oes not use a race coefficientEsti mated GFR is not as accur ate as Creatinine Cookie [facility] in predicting glom erular filtration rate . Estimated GFR is not appl icable for dialysis patien ts [employer] ID - ADMINCBC W/PLT COUNT & AUTO [id number] 14:22:12 Test Item Value Reference Range Interpretation Comments WHITE BLOOD CELL COUNT (BEAKER) 8.3 K/ L 3.5-10.5 (test code = 775) RED BLOOD CELL COUNT (BEAKER) 2.39 M/ L 3.93-5.22 L (test code = 761) HEMOGLOBIN (BEAKER) (test code = 7.0 GM/DL 11.2-15.7 L 410) HEMATOCRIT (BEAKER) (test code = 22.3 % 34.1-44.9 L 411) MEAN CORPUSCULAR VOLUME (BEAKER) 93 fL 79-95 (test code = 753) MEAN CORPUSCULAR HEMOGLOBIN 29.3 pg 25.6-32.2 (BEAKER) (test code = 751) MEAN CORPUSCULAR HEMOGLOBIN CONC 31.4 GM/DL 32.2-35.5 L (BEAKER) (test code = 752) RED CELL DISTRIBUTION WIDTH 20.8 % 11.7-14.4 H (BEAKER) (test code = 412) PLATELET COUNT (BEAKER) (test code 91 K/CU MM 150-450 L = 756) MEAN PLATELET VOLUME (BEAKER) 11.8 fL 9.4-12.3 (test code = 754) NUCLEATED RED BLOOD CELLS (BEAKER) 1 /100 WBC 0-0 H (test code = 413) NEUTROPHILS RELATIVE PERCENT 86 % (BEAKER) (test code = 429) LYMPHOCYTES RELATIVE PERCENT 7 % (BEAKER) (test code = 430) MONOCYTES RELATIVE PERCENT 5 % (BEAKER) (test code = 431) EOSINOPHILS RELATIVE PERCENT 1 % (BEAKER) (test code = 432) BASOPHILS RELATIVE PERCENT 0 % (BEAKER) (test code = 437) NEUTROPHILS ABSOLUTE COUNT 7.17 K/ L 1.56-6.13 H (BEAKER) (test code = 670) LYMPHOCYTES ABSOLUTE COUNT 0.55 K/ L 1.18-3.74 L (BEAKER) (test code = 414) MONOCYTES ABSOLUTE COUNT (BEAKER) 0.44 K/ L 0.24-0.36 H (test code = 415) EOSINOPHILS ABSOLUTE COUNT 0.04 K/ L 0.04-0.36 (BEAKER) (test code = 416) BASOPHILS ABSOLUTE COUNT (BEAKER) 0.02 K/ L 0.01-0.08 (test code = 417) IMMATURE GRANULOCYTES-RELATIVE 1.10 % 0.00-1.00 H PERCENT (BEAKER) (test code = 2801) PROTHROMBIN TIME/[id number] 00:12:07 Test Item Value Reference Range Interpretation Comments PROTIME (BEAKER) 15.4 seconds 11.9-14.2 H (test code = 759) INR (BEAKER) (test 1.30 See_Comment [Automat ed message] code = 370) The system [employer] generated this result transmitted ref erence range: <=5.90. The reference range was not used to int erpret this result as normal/abnormal . RECOMMENDED COUMADIN/WARFARIN INR THERAPY RANGESSTANDARD DOSE: 2.0 - 3.0 Includes: PROPHYLAXIS for venous thrombosis, systemic embolization; TREATMENT for venous thrombosis and/or pulmonary embolus.HIGH RISK: Target INR is 2.5-3.5 for patients with mechanical heart valves.CBC W/PLT COUNT & AUTO [id number] 00:04:47 Test Item Value Reference Range Interpretation Comments WHITE BLOOD CELL COUNT (BEAKER) 6.1 K/ L 3.5-10.5 (test code = 775) RED BLOOD CELL COUNT (BEAKER) 2.54 M/ L 3.93-5.22 L (test code = 761) HEMOGLOBIN (BEAKER) (test code = 7.3 GM/DL 11.2-15.7 L 410) HEMATOCRIT (BEAKER) (test code = 23.2 % 34.1-44.9 L 411) MEAN CORPUSCULAR VOLUME (BEAKER) 91 fL 79-95 (test code = 753) MEAN CORPUSCULAR HEMOGLOBIN 28.7 pg 25.6-32.2 (BEAKER) (test code = 751) MEAN CORPUSCULAR HEMOGLOBIN CONC 31.5 GM/DL 32.2-35.5 L (BEAKER) (test code = 752) RED CELL DISTRIBUTION WIDTH 18.6 % 11.7-14.4 H (BEAKER) (test code = 412) PLATELET COUNT (BEAKER) (test code 91 K/CU MM 150-450 L = 756) MEAN PLATELET VOLUME (BEAKER) 11.8 fL 9.4-12.3 (test code = 754) NUCLEATED RED BLOOD CELLS (BEAKER) 0 /100 WBC 0-0 (test code = 413) NEUTROPHILS RELATIVE PERCENT 66 % (BEAKER) (test code = 429) LYMPHOCYTES RELATIVE PERCENT 22 % (BEAKER) (test code = 430) MONOCYTES RELATIVE PERCENT 10 % (BEAKER) (test code = 431) EOSINOPHILS RELATIVE PERCENT 1 % (BEAKER) (test code = 432) BASOPHILS RELATIVE PERCENT 0 % (BEAKER) (test code = 437) NEUTROPHILS ABSOLUTE COUNT 3.99 K/ L 1.56-6.13 (BEAKER) (test code = 670) LYMPHOCYTES ABSOLUTE COUNT 1.31 K/ L 1.18-3.74 (BEAKER) (test code = 414) MONOCYTES ABSOLUTE COUNT (BEAKER) 0.63 K/ L 0.24-0.36 H (test code = 415) EOSINOPHILS ABSOLUTE COUNT 0.08 K/ L 0.04-0.36 (BEAKER) (test code = 416) BASOPHILS ABSOLUTE COUNT (BEAKER) 0.01 K/ L 0.01-0.08 (test code = 417) IMMATURE GRANULOCYTES-RELATIVE 0.80 % 0.00-1.00 PERCENT (BEAKER) (test code = 2801) SURGICAL PATHOLOGY [id number] 16:25:43 Test Item Value Reference Range Interpretation Comments Case Report (test code Surgical Pathology ? ? = [id number]) ?Case: [id number] ? Authorizing Provider: ?Florencio Lr MD ? Collected: ? 10/07/2021 1537 ?Ordering Location: ? ? [facility] OR ? Received: ?10/07/2021 1807 ? Department ? Pathologist: ? Catherine Moore, ? MD ? Specimen: ? ?UTERINE BODY W/OVARY AND FALLOPIAN TUBE, LEFT, Left ovary ? Final Diagnosis (test f8alnKMgVQXla3rbPKNfeT code = [id number]) FuZzEwMzNcZnRuYmpcdWMx IHtccnRmMVxlcGljOTYwMl cpwyLsXZSkkOIqA3Orbczq RUwhDA5zNZ6udXsceKEpzM ZiMLQwXnMzb0muf064sPVq j1jxNVYYrthllGd0vDjrN8 8jf5Y1BeurU57ijRJhSSB5 WSMfSIZbuVVtIIWeTRE8XG VfzOBoV9maXJSnPL3tplzx ZIbrYBdvQKUkrPG2GZFxtL LaR6MdKHUcZPtkUDQjyrz8 EgHoWy9jpTVtqIzbZZzvFL JkXHBsYWluXGZzMjBccGFy IEEuIFVURVJVUywgQklMQV RFUkFMIEZBTExPUElBTiBU VUJFUywgTEVGVCBPVkFSWS ueZNcDNOIRQRQLN60QPJDZ NNrYFLHZDVoaS4SFECePD1 ZEQP6DYWIAPkNxWUTHPVUY Q7GIE5DNB1CDPFq1IQgrLL VuYUNaRC4sV2CFWbzHGaDM L0VXZWYNRoJSJK9OPLJIW0 4fY4uRXQMCKLBMGcDCPY4X IEFORCBHUkFOVUxBVElPTi BUSVNTVUUgXHBhciAgICAg LSBFTkRPTUVUUklVTTogU0 DCFzPRL7FEBFTLALRFISml HEHtDLQbGQ2yLGeNXNEZDq zOATgkFMTMOe5BXP5NGKEa cGFyICAgICAtIEZBTExPUE lBTiBUVUJFUzogUEFSQVRV JnLACLJWT7GvnEShEIZjWV BhNFjDPiWzP7JTOkf7KWOF S1UPQxXZB2mFEYGVKLVcBK BhciAgICAgLSBJTlRSQUFS ULUZHKIDIKWOSa4KGOxHNH lPTiBNQVRFUklBTCBJREVO VElGSUVEXHBhclxwYXJkXH Moui71LSF2KpWyw6E7FYVh TvSuJAYxGF5phVeyRLAzTC 7nZWOrF4fhxO8atrn9MwUd NHHiYvX9SXLnmvF9Ydw9SL HfGVrzs6xgg2VqG3BysITx zHe3x2spEBYgCaA1zWApIK zbS5uuilFzcOSdQKGaNQl8 yQfvEfSxJFVdc1kkfmDwIx NoYXJzZXQwIENhbGlicmk7 nG71WELzeL9vqIJuDHeouw BhVmV8XRydTGOrJhL2GKZr oOWeEDBrC6pcDZAqJGooXA MzVLbelPYuZHV8cVqyd7J1 bGVzaGVldHtcZjBcZnMyOC HMx9KnDZd2sKfjG0YaCZAh YvH4xFTsKGLwKAqbNPTlBM YmqwZ1mO42XYhbxqM2sPSg d6Him37nv485xW9ntATmDC U2MLAqZOIokLOlBSUuGYQ1 FSWpuAFtN4prUCVqMD2sak iuOOmfFZxbFTPkpAB6GCNf sWEeD4AySPKnBNrfUKAwzw e9StFxLu1xuODczUgsIYdg y8xoh6uuvAKzZnn8WFFsEa IbAaqyGUbmh8Ivt4owKFFd hk1wHOT2mZHpoFvrv7I6aK UxXGRudGJsbnNiZGJcZmV0 OYlnGY5bzw73GKDqPXF5vb 5ybGNccGdicmRyaGVhZFxw T9VcDSMzg450RNUiP3IpCI Btc6D5qoJbWvXkPOAdkAF4 efG0BMIjBDo6uSVvmjU7ay PeuJKdH6hehN8iOVTaCV7z vzfmb2qoQFueBWfsMCVuxI D7jeD0MGEjtQHyP0XfhL7w XDVeENcyXLMbucy6UdEsLx 9vdGVyeTcyMFxzYmtwYWdl XHBnbmNvbnRccGduZGVjXH BsYWluXHBsYWluXGYwXGZz QeGpmHckhXigwS7kOvQrAm GbFTdpLQ5gTLYqP3hliEAm BBMtTQHsX4kqAhHpbB0jmX xmMVxjZjJcZnMyMFxwYXIg SSBoYXZlIHBlcnNvbmFsbH bjogD9iGJ3LDWwPSspAPKh RMGvyRAikj7htIgzNFNuVC 5kIGFncmVlIHdpdGggYWxs KAX6FZBljHFtpZRprZWlJW BieSByZXNpZGVudHMsIGZl uOgmp4Pma4RuoTP6tD0ty9 zhp0XzOWZeaFO3KZ49kmZ8 bK9tRCApFB7tJARtUS5zqB QklNErUTEpu08ljZbvrrSa ZXBvcnQuXHBsYWluXGYyXG ZzMjhcbGFuZzEwMzNcaGlj aFxmMlxkYmNoXGYyXGxvY2 ldZwCeScItSIugXAO1bD== Clinical Information menorrhagia (test code = 0010187829) Gross Description (test o1ndaUNoLFCcgMC0BkVxBZ code = 8557077685) Eyx1hdk9JkqLYtdTLxCQfw eOVnsvSntj18mFQ5jW49YS 3mNMQiMdK3VYBdrwD4Ngg3 UQChUMNtvSDuY120j2kjt2 cszlWjnZY6TVCxXVSrM3Tg ZR5oDWKecUFpD55xyYEbVH A0JTHaKPHguOCbMJKsOTC9 PAVsmPKqB5xwCRUxSC1kps xnXQfyMSaoKOJzwXC0VPGu aGLrR2GrYBMmXLxlSIQeed h0NcExWi4zoSQjfJuhNQuh BZRdw2jjRJGjyUHkLWY5RI lszJWpWMZfSCFdPLd6YRLw PHivkPVgNS8qwJmzCyqhuR vqd7CibHBfMPuyOHOaIFUu PNvmOFBlS6LSAYQoJbM4IY OfBeLuPXw9OEjjC6ZFHJBh WIJ9MDVeBFD8DqI8WPp8RH CKMa3vLPH6RTS1AfFqJqA2 TQI7WhCwICWgRkFbTXXfLI xcZiBBcmlhbCBcXGZzIDEw LSkvewU3GTYiXKvoGBUeEt AqE4HDK1rLJW6dOUlyLXYo Z8PvOQYtZDZcnHXxNAOtkI QsggUwRKx6LAMnaH1eSy4u dQRajS8lpHNtKUufUHJ1tE RoIHBhdGllbnRcdTgyMTcg XKg8PfWsziOdFIcvUXloed VtYmVyLCBcdTgyMjAgXCc5 G6X4UKZ7hylvtc3fgGdxbI NhUCyqZiGggG7zmBKkHHN4 BsUcZGRoFTH2EX87RSK8IY W9EqDbETplWIMeAO6cXEUd egFdj0DqSL8oQWUztOGcCL BpbmsgdXRlcnVzIGFuZCBj JDD7tReuBJllFTS9GJAgMP S1OIRxOeOnvXiiZFB6PDvu JI6rAXP2aLLlZRE2wOJcjK MmEADtdRE0NQMeoVGsLFnr v9MrMJ8tvDEgCSWeTLlvMo QgZmltYnJpYXRlZCBmYWxs x3TyBL3igJBsPXlnYw28IW jqFM13ELgoJK82TNQkSYPn cmlnaHQgZmltYnJpYXRlZC DuGJgyo3ExOF2unUIjOQlw Oi73MUhiMB62USujYO17UU NtKSBhbmQgbGVmdCBvdmFy wNA5pSUmNDvnOtDuOEMdAX BzdXJmYWNlICgzLjUgeCAz ZtIvgPCpNbAcK47rXZJpQ7 JhbXMpLiBccGFyXHBhciBU bWFcm0Lcm3DglGDqkRZbXN VlVT3xXZMrWDZ0zUBjqCIu yUXuo06kk9PwESLnLLLbgr 0cf4o7HTCafzHsVEZvWDLo YK7rKNncTXRheU5lYGX2vA jox5zeb0IxW9GbfW48UU9d SN6pYBhwhKRxYIYgrrQxyM Pcr4nkuqH8zF1xCSs6YH5k S5rxU8byyO7kMqKsU9Irg1 ZqMANhxxFdvQhjQOWaj0Da aXMgdGFuLXBpbmssIHdpdG mpNM5jHWFiNA94nmcbBYew wFLswIUaXIKvi1jjuT3auU mdRZ5jILoyWwRkQ40gxK0c iPEaI1BwEL1xZWOjrrgkBZ LtKIvoWWV3ALV8fmCukpIl nECyELZxfV7mzqP5EKIhAG XmXHQaZX8jVDR2fJYwlMGd KP1baFVdCq24GCViILpzZG kimfe6oHaxp1j0wOSpWTMs zX8cPw1zEEYvgrUmzQUjM1 M7lnKgVC8vRHZgT3LuYXmv PDW8RLAndnCzuPWvt4vvgf X7yZ6hPEmtnI6afETqBDCb QQRrGDFaT5UcZ0Mdcjf6IK Yuy9UthV7kFFLfo96mGgAB pCNeWQ6kb65ibIBfGRwaI8 H4xCQ4FSl8OhHamFPsSnQx tCXqAvJaN79aYFjwOImtp3 SilVdevF6qEQ1mvykwTmed KoFCvWXuaTyywHI0ocx9bC JkBN1cXQTsOuXpmSXzXaWu HHLbSBYmnIRrEM38NKJfKV ofYFAlzOLhywDrqd1lJl37 dKGoNYh9PLTip0DvxHodHK G9ZFR9tvIjrcFnd8IraRRp aRpok7PbiBgklqNzXSMaOE IpstVovRM0MI6ceAmegnJl qa6yt6j8VAXtnwWkSDRfHT HtUOZfiMQmn3BaEzSdSNSg ZYAqvbptKMFmXq54pTZsND dyu9DzSM0tyTRfEJGjIUYu GFXilclglHb6XZLdT9Jvb6 4qQLG1bwUrCUDtFXvgmQUo QQDlhcpnHw3wHGqmlYYxNX 2sepKqHKwsVxQjhWXli4Iw ZmFjZXMuIFRoZXJlIGlzIG Txg93aj0LfSSX5sYojHDdc oIqlOSKppQX9CFYpBVAbnS QvWIV7WAAiPZNyeX7vejke uQZoOwLqyI2ocGVjABTgqS SohNQvHWXaZLDupHT9IPne AR7iVJ1wLBV7qrXeXDEqGJ gybJAteZ16nACaNUAfUE7i vEBhMP59YOJvyIwzHeGsiC FyXHBhciBUaGUgbGVmdCBv dmFyeSBpcyBzZXJpYWxseS LgIMT0fE7fWRXgcF6vpqS9 ZKWdBLLsvz6dcS9bHSBtgi wvD2O3LJPnZ1H0DWK1vbGp K3DaWRclcPszbFKkaQkouR XblDUsHCCfn021gQU2DHtt GAYyF1exeVmvAYMgZCRpuo SnGG63ABPjYLljZHklHCU1 AVG4PMUpjCEbc1pmleakD7 7wqMLwmdxxHrJ3ljHue4e2 O2PukZAhpAHuEYHmrfRcW3 Icq9PpmTUuIBTjlDshlQMi vWNnW83scO6tIKVzeFUoRR DzinLiI25axQ5kRPWbyWQn Z3RjbYxiCtSMEWRcOIMupz YqiHm8INZlEWP6aP5vicLf tcTmx4JizVz9mPWcGTvwXY GaBFHuZC0vyTQxESJlktMX pkqdV40qCGfrrJUpZAJjlV OuSCOoILBjsKMwJK36KAAu i1FmKOUtELTpGJmketIqy1 bkJTKbr6GbpluvvyquGTKk nGHaVRQsD7Orn07nU37iFM pccGFyIEExLUEyOiBBbnRl yritsqXoF2FzO5Pqigb8TR OkFKHwUQ8bQHJ2tBEecHNf WR6usAzicfLsoqMmFO18UP EhreYylPDhCZYfXIK7QvJM p0K7EWWwv3KdERO1m0Gbqv FtqZV6vnFbmqYgM8Iwumma SYdfQ0OuPIbhTBVwfMIsh1 VbwCG1bKZcPOEylzUAQVuc TW48XLDtk9UeHL2gm156y8 6dtUJwxP7bTFHepSDqp0Cn tJF0mKEzJPRdguOXEldnOS 1swCHlcO0bMEYgWO9zdX8x ZXRyaXVtLCByZXByZXNlbn PjkCr4EFmvDLKyXJe0TXme ZnQgZmltYnJpYXRlZCBmYW rzx5HwDO8gxAZuTZnjwfFf xpAaAC28YEZvulUvlAUmER O8ZTT0YcUZqZxexIFuqN3o cmlhdGVkIGZhbGxvcGlhbi C0fJHqDAXrFQE9oTAfDCB5 DIQySYXnZ5ikaNuhslBigp QtSR59HNZpuaHexIHtADIs AC4VBON7QPluYpUtg6Stks gsNSEngFCpf8HmsWM2oRHf TLRyejwcJNReF7KgEMHlc1 jmBOVgKpW5sCIjZDNCDrBN MsAsSUUlutchUwH5HWDqvS BbBOE8AE0gkPesFBVbN0Sv X7SbolP2LCExyz4= Disclaimer (test code = l2seqZJqRDMyb9ioASAydJ [id number]) FuZzEwMzNcZnRuYmpcdWMx VPorxmQzIGwoe1VwC7UsVr AwMFxhbnNpXGRlZmxhbmcx UWGrCLK3jiNlNEIlGQyhNN WtLDjuVz9qlBIijDuzKbAi SGHac9eqqjMQXGutSjZuB7 70CHErLSqpj5iwn8ZsWARd uSOdu0A8QLOWypzcwOn5aH laH39kv0L1XjqbE0muUBFp WPYvP8XpIZ7wZUJkKdu1IA U3EGV5EBOsBTSnC2UmFG2d DHHhsKWlVBc5g8nnrGqeVA TqAYI4h2qaSWpugwEmRU4m sl8krLz6t3evgcRdGZYnAH EakFGDEREtE4SadLfgUf1u wEe3nTrjItzsNGM0Wwy2WW 7ome81vvi4tYvgETFtytkk VyZ6PInmKQGrsgfyULw1BX srREHvaXA7KUBrnWJtO0Ss LAIuZM9jliu9AIL2SLymIU KiZcR8MPZrtSZpJJYulNyx TFxup715LJO5GoIgGU6sN1 Hrl0T3wW9czASuYCQlcFBo CeIkSKYijv7yvGMzQLqqc6 VlMXJ4fvK8cBZtnMKwAGUc VM39Jctxf6ClWuqzq8TbR2 8nvYB2BVsqk8jkVL1gJtE2 dlJnONcjj3cfvX6iQmW9YY myOU0hLC0hHXAizJ7qmfyo XHBnYnJkcmhlYWRccGdicm ElQg5igKkeTXX9BKkfE9ee vT5eDhF8PPjnX6qcuU8vZY g0TXmvoWO0BULkpK1sGI5o isaep7gdHJziOSezOXBzzx J8guJ4MQSbeNWuU6EquI3v FEXlWU6nsqcvb0ntOOG8LX dzWGOnQYB2UsJyRXKbe3Xi bvt7YzMqt0NlyJMwXKcrR7 1do843DCOrxsPoR1hfoXZc sylzfYNknxlfLAeiftI0QB FvtgRvf4PdUHBvUPL4VHzq VVbrvGAeJSCvmSncx4xtW2 RscGFyXHBsYWluXGYxXGZz MjBcbGFuZzEwMzNcaGljaF teKLsoCzMpEAVkAIzxE9bt HlQlO3MlVSOyFrCezFJyR6 ggVGhpcyByZXBvcnQgbWF5 YWsyG5s3FCKlegFtmXc0iq VuFhZxCSZaOHY5ZWzjcBAi CBLsk9SitklzyPOiRj2ceS AzLQBrfU2pVZBiMBVcOXpa VK0viEt4FVXXeCTajGQrQr BYZGQnXQ19wlUoZBFHcpkn t9A0SRzrZYQsm4CafMOoN0 arz0PtMDTmj86yIR5tm0R7 a9lyOAT1OO3ei4WuBXSgeA ZhnAIeUVArm3Ewfmuec3Ms UERdfiMsz3QaXPOwhcAxiS LhIKVdtnHpuy8zrwXfGQBl KRDgE5SykapdbYjjbkGmFA Gdwt9rffIpYAU5SXNTZRVe UGTax7PncM6ggZOJDZB0uV Hmni4flxDXbZPjVXZpny09 JEJaWN5iY0zoZAMzRMOhab RmxSIoe9EuAXFhlFS9jVVl LF1QUmRFm41oGYZhGVEDam WjYOPyeIclyDQ0vsV6sN3r IChGREEpLlx+IFRoZSBGRE CeFB0wuyHdh7WjqsAruPzu XCZqiDAec2GinCOgz6RqwF iqj0OuuLRgiDJoLZ4nAKQl clxwYXIgVVRNQiBMYWJvcm D2j4AxEUZzCKBgVPZ7wTcy bew3DQCnrL9iRVHuR8xyjt kzOHobOJVhp9PtdK6neQNG aHQvd0ZsuTAfuSWExBNjEV 6rqxPiSHySZTxNYTX1amBh XVCun9JbAFxiI9mdX87afG oqxFg6aRD7WGC9fL4dLbv+ IFxwYXJccGFyIEFwcHJvcH BgTEWihCcnfbIgP8MbuuUx rQ7ptJPwudIoVF7iWE4vN9 H4fRPqDCXsthAye9ndJWaz dmUgYmVlbiByZXZpZXdlZC Wzb6PuYHboSJN0CFtnxsQy bmNsdWRpbmcgSCZFLCBTcG BgfKNbCYA7DMliyyUqhlCy ZC0ayK2dpHbeiW4qtSVvlG Z9hdduYNPkHAGpxFrpELDt ED1teGYuJOXdgxLJuMecaP LixK2iH2BgKDYgQMJndf0g PIWqgD3kTBvjz3TsuhmjYR IxLEKdXVOcpdJpit2yZCAx zGYKBF7GSWzucYFff1Lagt EdZ5eRSEB6XOUfAjWfZnyk HXGebLNrbODfYXUjeq94IJ SunW0yyHdiBNWeaV4thG7x zIfytF4oKuTwHvFgQOdyUT 8sJHEhV0mzmGFlRKXzOYJx M4uyNnHihP0toYqaKBewSs YyTbUxBDxcMKQ3dJ== Embedded Images (test code = 2786581214) [facility] WITH [id number] 11:52:00 Test Item Value Reference Range Interpretation [...] RDW-SD (test code = 49.1 fL 39.0-49.9 25306-4) RDW-CV (test code = 17.5 % 12.0-15.5 H 788-0) PLT (test code = See_Comment L [Automated 777-3) message] The sy stem which generated this result transmitted reference range : 166 - 358 10*3/ ?L. The reference r susan was not used to interpret this result as normal/abnormal . MPV (test code = 10.3 fL 9.5-12.9 33792-8) NRBC/100 WBC (test See_Comment [Automat ed code = [id number]) message] The system which generated this result transmitted reference range : 0.0 - 10.0 /100 WBCs. The refer ence range was not u sed to interpret th is result as normal/abnormal . NRBC x10^3 (test code <0.01 See_Comment [Auto mated = [id number]) message] The s ystem which generated this result transmitted reference range : 10*3/?L. The reference range was not used to interpret this result as normal/abnormal . GRAN MAT (NEUT) % 63.9 % (test code = 770-8) IMM GRAN % (test code 0.20 % = 4990944663) LYMPH % (test code = 23.4 % 736-9) MONO % (test code = 9.6 % 5905-5) EOS % (test code = 2.5 % 713-8) BASO % (test code = 0.4 % 706-2) GRAN MAT x10^3(ANC) 3.28 10*3/uL 1.88-7.09 (test code = 4264562170) IMM GRAN x10^3 (test <0.03 0.00-0.06 code = 2796592299) LYMPH x10^3 (test code 1.20 10*3/uL 1.32-3.29 L = 731-0) MONO x10^3 (test code 0.49 10*3/uL 0.33-0.92 = 742-7) EOS x10^3 (test code = 0.13 10*3/uL 0.03-0.39 711-2) BASO x10^3 (test code <0.03 0.01-0.07 = 704-7) Lab Interpretation Abnormal (test code = 39984-4) [facility] WITHOUT [id number] 00:47:16 Test Item Value Reference Range Interpretation Comments WBC (test code = 6690-2) See_Comment [A utomated message] The system [employer] generated this result transmit ramana reference range : 4.30 - 11.10 10*3/?L. The reference range was not used to interpret this result as normal/abnormal . RBC (test code = 789-8) See_Comment L [Au tomated message] The system [employer] generated this result transmit ramana reference range [...] See_Comment L [Au tomated message] The system [facility] generated this result transmit ramana reference range : 166 - 358 10*3/?L. The reference range was not used to interpret this result as normal/abnormal . MPV (test code = 11.5 fL 9.5-12.9 66852-6) RDW-CV (test code = 16.1 % 12.0-15.5 H 788-0) RDW-SD (test code = 50.6 fL 39.0-49.9 H 76649-9) NRBC x10^3 (test code = <0.01 See_Comment [Au tomated message] [id number]) The system [employer] generated this result transmit ramana reference range : 10*3/?L. The reference range was not used to interpret this result as normal/abnormal . NRBC/100 WBC (test code See_Comment [Au tomated message] = 5028338494) The system [facility] generated this result transmit ramana reference range : 0.0 - 10.0 /100 WBC s. The reference r susan was not used to interpret this result as normal/abnormal . IPF % (test code = 3990990087) Lab Interpretation (test Abnormal code = 48439-2) [facility] WITHOUT [id number] 00:47:16 Test Item Value Reference Range Interpretation Comments WBC (test code = 6690-2) See_Comment [A utomated message] The system [facility] generated this result transmit ramana reference range : 4.30 - 11.10 10*3/?L. The reference range was not used to interpret this result as normal/abnormal . RBC (test code = 789-8) See_Comment L [Au tomated message] The system [employer] generated this result transmit ramana reference range [...] See_Comment L [Au tomated message] The system [facility] generated this result transmit ramana reference range : 166 - 358 10*3/?L. The reference range was not used to interpret this result as normal/abnormal . MPV (test code = 11.5 fL 9.5-12.9 23096-8) RDW-CV (test code = 16.1 % 12.0-15.5 H 788-0) RDW-SD (test code = 50.6 fL 39.0-49.9 H 15496-6) NRBC x10^3 (test code = <0.01 See_Comment [Au tomated message] 2105614769) The system [facility] generated this result transmit ramana reference range : 10*3/?L. The reference range was not used to interpret this result as normal/abnormal . NRBC/100 WBC (test code See_Comment [Au tomated message] = 0406123358) The system [facility] generated this result transmit ramana reference range : 0.0 - 10.0 /100 WBC s. The reference r susan was not used to interpret this result as normal/abnormal . IPF % (test code = 8702114586) Lab Interpretation (test Abnormal code = 76031-8) [facility]:18:05 Test Item Value Reference Range Interpretation Comments PH (test code = 2) 7.35-7.45 PCO2 (test code = See_Comment [Automate d message] [id number]) The system [employer] generated this result transmit ramana reference range : 35 - 45 mmHg. The reference range was not used to interpret this result as normal/abnormal . PO2 (test code = See_Comment H [Automated message] 8401439770) The system [employer] generated this result transmit ramana reference range : 80 - 100 mmHg. The reference range was not used to interpret this result as normal/abnormal . HCO3 (test code = See_Comment L [Automate d message] 6324454278) The system [employer] generated this result transmit ramana reference range : 22 - 26 mEq/L. The reference range was not used to interpret this result as normal/abnormal . BE (test code = See_Comment L [Automated message] 7800683619) The system [employer] generated this result transmit ramana reference range : -3.0 - 3.0 mEq/ L. The reference r susan was not used to interpret this result as normal/abnormal . THB (test code = 5.6 g/dL 12.0-16.0 LL 4758910355) %O2HB (test code = 97.8 % 94.0-99.0 8908826217) %COHB ART (test code = 0.8 % 0.0-1.5 9044804566) %METHB ART (test code = 0.8 % 0.4-1.5 0904283138) VOL%O2 ART (test code = 9.2 % 15.0-23.0 L QUES 8287428990) NA (test code = 132 mmol/L 135-145 L 3740419477) K+ (test code = 4.3 mmol/L 3.5-5.0 1910895684) AC CA IONZ (test code = 6.60 mg/dL 4.50-5.30 3940083835) GLUCOSE (test code = 150 mg/dL 70-110 H 4429692520) Lab Interpretation Abnormal (test code = 21442-0) [facility]11 00:18:05 Test Item Value Reference Range Interpretation Comments PH (test code = 2) 7.35-7.45 PCO2 (test code = See_Comment [Automate d message] 6137746617) The system [employer] generated this result transmit ramana reference range : 35 - 45 mmHg. The reference range was not used to interpret this result as normal/abnormal . PO2 (test code = See_Comment H [Automated message] 2890951339) The system [employer] generated this result transmit ramana reference range : 80 - 100 mmHg. The reference range was not used to interpret this result as normal/abnormal . HCO3 (test code = See_Comment L [Automate d message] 9975484557) The system [employer] generated this result transmit ramana reference range : 22 - 26 mEq/L. The reference range was not used to interpret this result as normal/abnormal . BE (test code = See_Comment L [Automated message] 9385014785) The system [employer] generated this result transmit ramana reference range : -3.0 - 3.0 mEq/ L. The reference r susan was not used to interpret this result as normal/abnormal . THB (test code = 5.6 g/dL 12.0-16.0 1646291931) %O2HB (test code = 97.8 % 94.0-99.0 2322735496) %COHB ART (test code = 0.8 % 0.0-1.5 2517605580) %METHB ART (test code = 0.8 % 0.4-1.5 [id number]) VOL%O2 ART (test code = 9.2 % 15.0-23.0 L QUES 4544454832) NA (test code = 132 mmol/L 135-145 L 4262863970) K+ (test code = 4.3 mmol/L 3.5-5.0 9720923957) AC CA IONZ (test code = 6.60 mg/dL 4.50-5.30 9161858786) GLUCOSE (test code = 150 mg/dL 70-110 H 3141644304) Lab Interpretation Abnormal (test code = 78691-5) [facility] 00:17:20 Test Item Value Reference Range Interpretation Comments PH (test code = 2) 7.35-7.45 PCO2 (test code = See_Comment [Automate d message] 3068915707) The system [employer] generated this result transmit ramana reference range : 35 - 45 mmHg. The reference range was not used to interpret this result as normal/abnormal . PO2 (test code = See_Comment H [Automated message] 5585350706) The system [employer] generated this result transmit ramana reference range : 80 - 100 mmHg. The reference range was not used to interpret this result as normal/abnormal . HCO3 (test code = See_Comment [Automate d message] 0191652871) The system [employer] generated this result transmit ramana reference range : 22 - 26 mEq/L. The reference range was not used to interpret this result as normal/abnormal . BE (test code = See_Comment L [Automated message] 1615489993) The system [employer] generated this result transmit ramana reference range : -3.0 - 3.0 mEq/ L. The reference r susan was not used to interpret this result as normal/abnormal . THB (test code = 6.7 g/dL 12.0-16.0 LL 2021871788) %O2HB (test code = 97.9 % 94.0-99.0 1239938227) %COHB ART (test code = 0.8 % 0.0-1.5 0919860602) %METHB ART (test code = 0.4 % 0.4-1.5 2525730612) VOL%O2 ART (test code = 10.3 % 15.0-23.0 L QUES 7805155729) NA (test code = 132 mmol/L 135-145 L 6481379980) K+ (test code = 4.1 mmol/L 3.5-5.0 6142790919) AC CA IONZ (test code = 4.40 mg/dL 4.50-5.30 L 0673927622) GLUCOSE (test code = 173 mg/dL 70-110 H 4384813284) Lab Interpretation Abnormal (test code = 21892-4) [facility] 00:17:20 Test Item Value Reference Range Interpretation Comments PH (test code = 2) 7.35-7.45 PCO2 (test code = See_Comment [Automate d message] 6475269828) The system [employer] generated this result transmit ramana reference range : 35 - 45 mmHg. The reference range was not used to interpret this result as normal/abnormal . PO2 (test code = See_Comment H [Automated message] 9574686342) The system [employer] generated this result transmit ramana reference range : 80 - 100 mmHg. The reference range was not used to interpret this result as normal/abnormal . HCO3 (test code = See_Comment [Automate d message] 8466576191) The system [employer] generated this result transmit ramana reference range : 22 - 26 mEq/L. The reference range was not used to interpret this result as normal/abnormal . BE (test code = See_Comment L [Automated message] 7948068165) The system [employer] generated this result transmit ramana reference range : -3.0 - 3.0 mEq/ L. The reference r susan was not used to interpret this result as normal/abnormal . THB (test code = 6.7 g/dL 12.0-16.0 LL 8962721347) %O2HB (test code = 97.9 % 94.0-99.0 2173767098) %COHB ART (test code = 0.8 % 0.0-1.5 6999635278) %METHB ART (test code = 0.4 % 0.4-1.5 2079999574) VOL%O2 ART (test code = 10.3 % 15.0-23.0 L QUES 2201588182) NA (test code = 132 mmol/L 135-145 L 1392625188) K+ (test code = 4.1 mmol/L 3.5-5.0 1606737778) AC CA IONZ (test code = 4.40 mg/dL 4.50-5.30 L 8776885797) GLUCOSE (test code = 173 mg/dL 70-110 H 7365705026) Lab Interpretation Abnormal (test code = 60948-0) [facility]11 00:16:35 Test Item Value Reference Range Interpretation Comments PH (test code = 2) 7.35-7.45 PCO2 (test code = See_Comment L [Automate d message] 5720806317) The system [employer] generated this result transmit ramana reference range : 35 - 45 mmHg. The reference range was not used to interpret this result as normal/abnormal . PO2 (test code = See_Comment H [Automated message] 4891706148) The system [employer] generated this result transmit ramana reference range : 80 - 100 mmHg. The reference range was not used to interpret this result as normal/abnormal . HCO3 (test code = See_Comment L [Automate d message] 9149719628) The system [employer] generated this result transmit ramana reference range : 22 - 26 mEq/L. The reference range was not used to interpret this result as normal/abnormal . BE (test code = See_Comment L [Automated message] 7944939493) The system [employer] generated this result transmit ramana reference range : -3.0 - 3.0 mEq/ L. The reference r susan was not used to interpret this result as normal/abnormal . THB (test code = 7.3 g/dL 12.0-16.0 LL 5136025514) %O2HB (test code = 98.0 % 94.0-99.0 2750374187) %COHB ART (test code = 0.7 % 0.0-1.5 2759564372) %METHB ART (test code = 0.3 % 0.4-1.5 L 4325783454) VOL%O2 ART (test code = 10.9 % 15.0-23.0 L QUES 5701431501) NA (test code = 133 mmol/L 135-145 L 7022581553) K+ (test code = 4.2 mmol/L 3.5-5.0 6229008289) AC CA IONZ (test code = 4.30 mg/dL 4.50-5.30 L 9331328811) GLUCOSE (test code = 161 mg/dL 70-110 H 0866209751) Lab Interpretation Abnormal (test code = 15774-8) [facility]-11 00:16:35 Test Item Value Reference Range Interpretation Comments PH (test code = 2) 7.35-7.45 PCO2 (test code = See_Comment L [Automate d message] 7934880827) The system [employer] generated this result transmit ramana reference range : 35 - 45 mmHg. The reference range was not used to interpret this result as normal/abnormal . PO2 (test code = See_Comment H [Automated message] 9187661912) The system [employer] generated this result transmit ramana reference range : 80 - 100 mmHg. The reference range was not used to interpret this result as normal/abnormal . HCO3 (test code = See_Comment L [Automate d message] 5584196255) The system [employer] generated this result transmit ramana reference range : 22 - 26 mEq/L. The reference range was not used to interpret this result as normal/abnormal . BE (test code = See_Comment L [Automated message] 0476373316) The system [employer] generated this result transmit ramana reference range : -3.0 - 3.0 mEq/ L. The reference r susan was not used to interpret this result as normal/abnormal . THB (test code = 7.3 g/dL 12.0-16.0 LL 7343584179) %O2HB (test code = 98.0 % 94.0-99.0 9872396410) %COHB ART (test code = 0.7 % 0.0-1.5 0921431027) %METHB ART (test code = 0.3 % 0.4-1.5 L 0429311209) VOL%O2 ART (test code = 10.9 % 15.0-23.0 L QUES 8637611917) NA (test code = 133 mmol/L 135-145 L 6805337571) K+ (test code = 4.2 mmol/L 3.5-5.0 9532346433) AC CA IONZ (test code = 4.30 mg/dL 4.50-5.30 L 7370776919) GLUCOSE (test code = 161 mg/dL 70-110 H 7403282581) Lab Interpretation Abnormal (test code = 32391-2) [facility]-10-11 00:15:34 Test Item Value Reference Range Interpretation Comments PH (test code = 2) 7.35-7.45 PCO2 (test code = See_Comment L [Automate d message] 8696246020) The system [employer] generated this result transmit ramana reference range : 35 - 45 mmHg. The reference range was not used to interpret this result as normal/abnormal . PO2 (test code = See_Comment H [Automated message] 6844007567) The system [employer] generated this result transmit ramana reference range : 80 - 100 mmHg. The reference range was not used to interpret this result as normal/abnormal . HCO3 (test code = See_Comment L [Automate d message] 4263563975) The system [employer] generated this result transmit ramana reference range : 22 - 26 mEq/L. The reference range was not used to interpret this result as normal/abnormal . BE (test code = See_Comment [Automated message] 4900617102) The system [employer] generated this result transmit ramana reference range : -3.0 - 3.0 mEq/ L. The reference r susan was not used to interpret this result as normal/abnormal . THB (test code = 7.8 g/dL 12.0-16.0 LL 4323515069) %O2HB (test code = 98.1 % 94.0-99.0 6791224361) %COHB ART (test code = 0.9 % 0.0-1.5 5565480946) %METHB ART (test code = 0.2 % 0.4-1.5 L 8571143818) VOL%O2 ART (test code = 12.2 % 15.0-23.0 L QUES 1966505014) NA (test code = 133 mmol/L 135-145 L 7334257550) K+ (test code = 4.3 mmol/L 3.5-5.0 6657322336) AC CA IONZ (test code = 5.30 mg/dL 4.50-5.30 1612241104) GLUCOSE (test code = 111 mg/dL 70-110 H 5754520268) Lab Interpretation Abnormal (test code = 00009-7) [facility]CA2+[facility]21-10-11 00:15:34 Test Item Value Reference Range Interpretation Comments PH (test code = 2) 7.35-7.45 PCO2 (test code = See_Comment L [Automate d message] 1986985588) The system [employer] generated this result transmit ramana reference range : 35 - 45 mmHg. The reference range was not used to interpret this result as normal/abnormal . PO2 (test code = See_Comment H [Automated message] 7730872820) The system [employer] generated this result transmit ramana reference range : 80 - 100 mmHg. The reference range was not used to interpret this result as normal/abnormal . HCO3 (test code = See_Comment L [Automate d message] 5492887176) The system [employer] generated this result transmit ramana reference range : 22 - 26 mEq/L. The reference range was not used to interpret this result as normal/abnormal . BE (test code = See_Comment [Automated message] 8089454581) The system [employer] generated this result transmit ramana reference range : -3.0 - 3.0 mEq/ L. The reference r susan was not used to interpret this result as normal/abnormal . THB (test code = 7.8 g/dL 12.0-16.0 LL 4763108820) %O2HB (test code = 98.1 % 94.0-99.0 5474998388) %COHB ART (test code = 0.9 % 0.0-1.5 9405123284) %METHB ART (test code = 0.2 % 0.4-1.5 L 3533608377) VOL%O2 ART (test code = 12.2 % 15.0-23.0 L QUES 8803753430) NA (test code = 133 mmol/L 135-145 L 9091464223) K+ (test code = 4.3 mmol/L 3.5-5.0 9217439199) AC CA IONZ (test code = 5.30 mg/dL 4.50-5.30 1514219748) GLUCOSE (test code = 111 mg/dL 70-110 H 1103414968) Lab Interpretation Abnormal (test code = 14273-5) [facility] METABOLIC PANEL (NA, K, CL, CO2, GLUCOSE, BUN, CREATININE, CA)2021-10-10 11:50:35 Test Item Value Reference Range Interpretation Comments NA (test code = 135 mmol/L 135-145 3639664355) K (test code = 3.6 mmol/L 3.5-5.0 3325841502) CL (test code = 105 mmol/L 98-108 9262594913) CO2 TOTAL (test code = 30 mmol/L 23-31 3496437098) AGAP (test code = <1 2-16 L 4325490706) BUN (test code = 3 mg/dL 7-23 L 0250534377) GLUCOSE (test code = 102 mg/dL 70-110 3893742439) CREATININE (test code = 0.50 mg/dL 0.50-1.04 2653649032) CALCIUM (test code = 8.1 mg/dL 8.6-10.6 L 2497939323) eGFR (test code = mL/min/1.73m2 9208813822) MICKY (test code = MICKY) Association of [...] tests). Lab Interpretation Abnormal (test code = 81056-4) [facility] (NA, K, CL, CO2, GLUCOSE, BUN, CREATININE, CA)2021-10-10 11:50:35 Test Item Value Reference Range Interpretation Comments NA (test code = 135 mmol/L 135-145 1680676418) K (test code = 3.6 mmol/L 3.5-5.0 2842883108) CL (test code = 105 mmol/L 98-108 2867626721) CO2 TOTAL (test code = 30 mmol/L 23-31 5946422716) AGAP (test code = <1 2-16 L 7406636217) BUN (test code = 3 mg/dL 7-23 L 7482819198) GLUCOSE (test code = 102 mg/dL 70-110 8397780448) CREATININE (test code = 0.50 mg/dL 0.50-1.04 8935399743) CALCIUM (test code = 8.1 mg/dL 8.6-10.6 L 1079964522) eGFR (test code = mL/min/1.73m2 8531558046) MICKY (test code = MICKY) Association of [...] tests). Lab Interpretation Abnormal (test code = 84715-2) [facility] Test Item Value Reference Range Interpretation Comments MAGNESIUM (test code = 1966023035) 2.0 mg/dL 1.7-2.4 Lab Interpretation (test code = Normal 30646-2) [facility] 11:[facility]:04 Test Item Value Reference Range Interpretation Comments PHOSPHORUS (test code = 5947429106) 3.4 mg/dL 2.5-5.0 Lab Interpretation (test code = Normal 91650-7) [facility] 11:49:04 Test Item Value Reference Range Interpretation Comments MAGNESIUM (test code = 9724530523) 2.0 mg/dL 1.7-2.4 Lab Interpretation (test code = Normal 47362-8) [facility] 11:49:04 Test Item Value Reference Range Interpretation Comments PHOSPHORUS (test code = 3006007639) 3.4 mg/dL 2.5-5.0 Lab Interpretation (test code = Normal 38314-7) [facility] [id number] 11:26:59 Test Item Value Reference Range Interpretation Comments WBC (test code = 6690-2) See_Comment [A utomated message] The system [employer] generated this result transmit ramana reference range : 4.30 - 11.10 10*3/?L. The reference range was not used to interpret this result as normal/abnormal . RBC (test code = 789-8) See_Comment L [Au tomated message] The system [employer] generated this result transmit ramana reference range [...] See_Comment L [Au tomated message] The system [employer] generated this result transmit ramana reference range : 166 - 358 10*3/?L. The reference range was not used to interpret this result as normal/abnormal . MPV (test code = 10.9 fL 9.5-12.9 82064-2) RDW-CV (test code = 16.4 % 12.0-15.5 H 788-0) RDW-SD (test code = 50.1 fL 39.0-49.9 H 56642-5) NRBC x10^3 (test code = <0.01 See_Comment [Au tomated message] 8601187994) The system [employer] generated this result transmit ramana reference range : 10*3/?L. The reference range was not used to interpret this result as normal/abnormal . NRBC/100 WBC (test code See_Comment [Au tomated message] = 8250040387) The system [facility] generated this result transmit ramana reference range : 0.0 - 10.0 /100 WBC s. The reference r susan was not used to interpret this result as normal/abnormal . IPF % (test code = 9931144745) Lab Interpretation (test Abnormal code = 18241-8) [facility] WITHOUT [id number] 11:26:59 Test Item Value Reference Range Interpretation Comments WBC (test code = 6690-2) See_Comment [A utomated message] The system [employer] generated this result transmit ramana reference range : 4.30 - 11.10 10*3/?L. The reference range was not used to interpret this result as normal/abnormal . RBC (test code = 789-8) See_Comment L [Au tomated message] The system [employer] generated this result transmit ramana reference range [...] See_Comment L [Au tomated message] The system [facility] generated this result transmit ramana reference range : 166 - 358 10*3/?L. The reference range was not used to interpret this result as normal/abnormal . MPV (test code = 10.9 fL 9.5-12.9 51812-1) RDW-CV (test code = 16.4 % 12.0-15.5 H 788-0) RDW-SD (test code = 50.1 fL 39.0-49.9 H 30960-2) NRBC x10^3 (test code = <0.01 See_Comment [Au tomated message] 6806496626) The system [facility] generated this result transmit ramana reference range : 10*3/?L. The reference range was not used to interpret this result as normal/abnormal . NRBC/100 WBC (test code See_Comment [Au tomated message] = 2129340898) The system [facility] generated this result transmit ramana reference range : 0.0 - 10.0 /100 WBC s. The reference r susan was not used to interpret this result as normal/abnormal . IPF % (test code = 1321806381) Lab Interpretation (test Abnormal code = 15299-8) [facility] WITHOUT [id number] 00:02:03 Test Item Value Reference Range Interpretation Comments WBC (test code = 6690-2) See_Comment [A utomated message] The system [facility] generated this result transmit ramana reference range : 4.30 - 11.10 10*3/?L. The reference range was not used to interpret this result as normal/abnormal . RBC (test code = 789-8) See_Comment L [Au tomated message] The system [facility] generated this result transmit ramana [...] See_Comment L [Au tomated message] The system [facility] generated this result transmit ramana reference range : 166 - 358 10*3/?L. The reference range was not used to interpret this result as normal/abnormal . MPV (test code = 11.0 fL 9.5-12.9 75562-9) RDW-CV (test code = 15.9 % 12.0-15.5 H 788-0) RDW-SD (test code = 49.4 fL 39.0-49.9 78411-5) NRBC x10^3 (test code = See_Comment [Au tomated message] 7307669330) The system [facility] generated this result transmit ramana reference range : 10*3/?L. The reference range was not used to interpret this result as normal/abnormal . NRBC/100 WBC (test code See_Comment [Au tomated message] = 9851782517) The system [facility] generated this result transmit ramana reference range : 0.0 - 10.0 /100 WBC s. The reference r susan was not used to interpret this result as normal/abnormal . IPF % (test code = 9012947145) Lab Interpretation (test Abnormal code = 51588-7) [facility] WITHOUT [id number] 00:02:03 Test Item Value Reference Range Interpretation Comments WBC (test code = 6690-2) See_Comment [A utomated message] The system [facility] generated this result transmit ramana reference range : 4.30 - 11.10 10*3/?L. The reference range was not used to interpret this result as normal/abnormal . RBC (test code = 789-8) See_Comment L [Au tomated message] The system [facility] generated this result transmit ramana [...] See_Comment L [Au tomated message] The system [facility] generated this result transmit ramana reference range : 166 - 358 10*3/?L. The reference range was not used to interpret this result as normal/abnormal . MPV (test code = 11.0 fL 9.5-12.9 88617-0) RDW-CV (test code = 15.9 % 12.0-15.5 H 788-0) RDW-SD (test code = 49.4 fL 39.0-49.9 88895-3) NRBC x10^3 (test code = See_Comment [Au tomated message] 8951136173) The system [facility] generated this result transmit ramana reference range : 10*3/?L. The reference range was not used to interpret this result as normal/abnormal . NRBC/100 WBC (test code See_Comment [Au tomated message] = 4294575346) The system [facility] generated this result transmit ramana reference range : 0.0 - 10.0 /100 WBC s. The reference r susan was not used to interpret this result as normal/abnormal . IPF % (test code = 2849023211) Lab Interpretation (test Abnormal code = 37367-9) [facility] WITHOUT [id number] 16:52:03 Test Item Value Reference Range Interpretation Comments WBC (test code = 6690-2) See_Comment [A utomated message] The system [facility] generated this result transmit ramana reference range : 4.30 - 11.10 10*3/?L. The reference range was not used to interpret this result as normal/abnormal . RBC (test code = 789-8) See_Comment L [Au tomated message] The system [facility] generated this result transmit ramana [...] See_Comment L [Au tomated message] The system [employer] generated this result transmit ramana reference range : 166 - 358 10*3/?L. The reference range was not used to interpret this result as normal/abnormal . MPV (test code = 10.4 fL 9.5-12.9 82687-5) RDW-CV (test code = 15.8 % 12.0-15.5 H 788-0) RDW-SD (test code = 47.8 fL 39.0-49.9 85525-8) NRBC x10^3 (test code = See_Comment [Au tomated message] 5686953531) The system [employer] generated this result transmit ramana reference range : 10*3/?L. The reference range was not used to interpret this result as normal/abnormal . NRBC/100 WBC (test code See_Comment [Au tomated message] = 4823012747) The system [facility] generated this result transmit ramnaa reference range : 0.0 - 10.0 /100 WBC s. The reference r susan was not used to interpret this result as normal/abnormal . IPF % (test code = 5007694555) Lab Interpretation (test Abnormal code = 61708-4) [facility] WITHOUT [id number] 16:52:03 Test Item Value Reference Range Interpretation Comments WBC (test code = 6690-2) See_Comment [A utomated message] The system [employer] generated this result transmit ramana reference range : 4.30 - 11.10 10*3/?L. The reference range was not used to interpret this result as normal/abnormal . RBC (test code = 789-8) See_Comment L [Au tomated message] The system [employer] generated this result transmit ramana reference range [...] See_Comment L [Au tomated message] The system [facility] generated this result transmit ramana reference range : 166 - 358 10*3/?L. The reference range was not used to interpret this result as normal/abnormal . MPV (test code = 10.4 fL 9.5-12.9 70618-4) RDW-CV (test code = 15.8 % 12.0-15.5 H 788-0) RDW-SD (test code = 47.8 fL 39.0-49.9 93432-9) NRBC x10^3 (test code = See_Comment [Au tomated message] 1165211718) The system [employer] generated this result transmit ramana reference range : 10*3/?L. The reference range was not used to interpret this result as normal/abnormal . NRBC/100 WBC (test code See_Comment [Au tomated message] = 0195627742) The system [facility] generated this result transmit ramana reference range : 0.0 - 10.0 /100 WBC s. The reference r susan was not used to interpret this result as normal/abnormal . IPF % (test code = 7400024173) Lab Interpretation (test Abnormal code = 96479-8) [facility]44:06 Test Item Value Reference Range Interpretation Comments MAGNESIUM (test code = 8287448049) 1.6 mg/dL 1.7-2.4 L Lab Interpretation (test code = Abnormal 13355-3) [facility] 13:44:06 Test Item Value Reference Range Interpretation Comments PHOSPHORUS (test code = 0537124352) 3.0 mg/dL 2.5-5.0 Lab Interpretation (test code = Normal 92715-9) [facility] 13:44:06 Test Item Value Reference Range Interpretation Comments MAGNESIUM (test code = 2842687909) 1.6 mg/dL 1.7-2.4 L Lab Interpretation (test code = Abnormal 06680-2) [facility] 13:44:06 Test Item Value Reference Range Interpretation Comments PHOSPHORUS (test code = 9993160663) 3.0 mg/dL 2.5-5.0 Lab Interpretation (test code = Normal 39182-3) [facility] Packed RBC (in units), 1 Units 2021-10-09 10:06:26 Test Item Value Reference Range Interpretation Comments Cross Match Result Compatible (test code = 4409) ISBT Blood Type Code (test code = 612675) Unit Blood Type (test A Pos code = 4410) Unit Number (test [id number] code = 4411) Blood Expiration Date & Time (test code = 495884) Status Information Issued (test code = 4412) Product Red Blood Cells Identification (test code = 4413) Product Code (test U6677P57 Performed at [facility] [[email or web address] code = 4414) Laboratory Services - [facility] Blood [address] [address] Free: [phone] A No. [id number] [facility] Packed RBC (in units), 1 Units 2021-10-09 10:06:26 Test Item Value Reference Range Interpretation Comments Cross Match Result Compatible (test code = 4409) ISBT Blood Type Code (test code = 608651) Unit Blood Type (test A Pos code = 4410) Unit Number (test [id number] code = 4411) Blood Expiration Date & Time (test code = 350302) Status Information Issued (test code = 4412) Product Red Blood Cells Identification (test code = 4413) Product Code (test [id number] Performed at [facility] [[email or web address] code = 4414) Laboratory Services - [facility] Blood [address] [place] [address] Free: [phone] A No. [id number] [facility] (NA, K, CL, CO2, GLUCOSE, BUN, CREATININE, CA)2021-10-09 10:00:59 Test Item Value Reference Range Interpretation Comments NA (test code = 134 mmol/L 135-145 L 9310225502) K (test code = 3.9 mmol/L 3.5-5.0 0567088530) CL (test code = 106 mmol/L 98-108 9860611112) CO2 TOTAL (test code = 29 mmol/L 23-31 0547593392) AGAP (test code = <1 2-16 L 7457858455) BUN (test code = 7 mg/dL 7-23 9013923215) GLUCOSE (test code = 119 mg/dL 70-110 H 1675417076) CREATININE (test code = 0.49 mg/dL 0.50-1.04 L 6458505434) CALCIUM (test code = 7.5 mg/dL 8.6-10.6 L 7822162839) eGFR (test code = mL/min/1.73m2 8592990005) MICKY (test code = MICKY) Association of [...] tests). Lab Interpretation Abnormal (test code = 29104-4) [facility] METABOLIC PANEL (NA, K, CL, CO2, GLUCOSE, BUN, CREATININE, CA)2021-10-09 10:00:59 Test Item Value Reference Range Interpretation Comments NA (test code = 134 mmol/L 135-145 L 6706021349) K (test code = 3.9 mmol/L 3.5-5.0 4427721599) CL (test code = 106 mmol/L 98-108 1091568205) CO2 TOTAL (test code = 29 mmol/L 23-31 5310672023) AGAP (test code = <1 2-16 L 4696260484) BUN (test code = 7 mg/dL 7-23 0515814340) GLUCOSE (test code = 119 mg/dL 70-110 H 6792963214) CREATININE (test code = 0.49 mg/dL 0.50-1.04 L 1597642542) CALCIUM (test code = 7.5 mg/dL 8.6-10.6 L 6449798588) eGFR (test code = mL/min/1.73m2 2991462466) MICKY (test code = MICKY) Association of [...] tests). Lab Interpretation Abnormal (test code = 48667-8) [facility] WITHOUT [id number] 09:00:48 Test Item Value Reference Range Interpretation Comments WBC (test code = See_Comment [Automated message] 6690-2) The system [employer] generated this result transmitted ref erence range: 4.30 - 1 1.10 10*3/?L. The reference range was not used to int erpret this result as normal/abnormal . RBC (test code = 789-8) See_Comment L [Au tomated message] The system [employer] generated this result transmitted ref erence range: [...] See_Comment L [Au tomated message] The system [employer] generated this result transmitted ref erence range: 166 - 35 8 10*3/?L. The reference range was not used to int erpret this result as normal/abnormal . MPV (test code = 10.9 fL 9.5-12.9 71925-0) RDW-CV (test code = 16.3 % 12.0-15.5 H 788-0) RDW-SD (test code = 48.7 fL 39.0-49.9 54979-1) NRBC x10^3 (test code = <0.01 See_Comment [Au tomated message] 5318888832) The system [employer] generated this result transmitted ref erence range: 10*3/?L. The reference range was not used to int erpret this result as normal/abnormal . NRBC/100 WBC (test code See_Comment [Au tomated message] = 2212944793) The [facility] generated this result transmitted ref erence range: 0.0 - 10 .0 /100 WBCs. The reference range was not used to int erpret this result as normal/abnormal . IPF % (test code = 3.6 % 1.3-7.7 Platelet count 4079883259) measured by fluorescence me thod. Lab Interpretation Abnormal (test code = 45155-7) [facility] WITHOUT [id number] 09:00:48 Test Item Value Reference Range Interpretation Comments WBC (test code = See_Comment [Automated message] 6690-2) The system [employer] generated this result transmitted ref erence range: 4.30 - 1 1.10 10*3/?L. The reference range was not used to int erpret this result as normal/abnormal . RBC (test code = 789-8) See_Comment L [Au tomated message] The system [employer] generated this result transmitted ref erence range: [...] See_Comment L [Au tomated message] The system [employer] generated this result transmitted ref erence range: 166 - 35 8 10*3/?L. The reference range was not used to int erpret this result as normal/abnormal . MPV (test code = 10.9 fL 9.5-12.9 25737-9) RDW-CV (test code = 16.3 % 12.0-15.5 H 788-0) RDW-SD (test code = 48.7 fL 39.0-49.9 99123-0) NRBC x10^3 (test code = <0.01 See_Comment [Au tomated message] 0291706987) The system [employer] generated this result transmitted ref erence range: 10*3/?L. The reference range was not used to int erpret this result as normal/abnormal . NRBC/100 WBC (test code See_Comment [Au tomated message] = 4688908343) The system [employer] generated this result transmitted ref erence range: 0.0 - 10 .0 /100 WBCs. The reference range was not used to int erpret this result as normal/abnormal . IPF % (test code = 3.6 % 1.3-7.7 Platelet count 4879211282) measured by fluorescence me thod. Lab Interpretation Abnormal (test code = 31040-1) [facility] WITHOUT [id number] 01:42:07 Test Item Value Reference Range Interpretation Comments WBC (test code = See_Comment [Automated message] 6690-2) The system [employer] generated this result transmitted ref erence range: 4.30 - 1 1.10 10*3/?L. The reference range was not used to int erpret this result as normal/abnormal . RBC (test code = 789-8) See_Comment L [Au tomated message] The system [employer] generated this result transmitted ref erence range: [...] See_Comment L [Au tomated message] The system [employer] generated this result transmitted ref erence range: 166 - 35 8 10*3/?L. The reference range was not used to int erpret this result as normal/abnormal . MPV (test code = 10.6 fL 9.5-12.9 44326-8) RDW-CV (test code = 16.2 % 12.0-15.5 H 788-0) RDW-SD (test code = 48.3 fL 39.0-49.9 89053-6) NRBC x10^3 (test code = See_Comment [Au tomated message] 7678907352) The system [employer] generated this result transmitted ref erence range: 10*3/?L. The reference range was not used to int erpret this result as normal/abnormal . NRBC/100 WBC (test code See_Comment [Au tomated message] = 3029587783) The [facility] generated this result transmitted ref erence range: 0.0 - 10 .0 /100 WBCs. The reference range was not used to int erpret this result as normal/abnormal . IPF % (test code = 3.3 % 1.3-7.7 Platelet count 9756011009) measured by fluorescence me thod. Lab Interpretation Abnormal (test code = 25020-8) [facility] WITHOUT [id number] 01:42:07 Test Item Value Reference Range Interpretation Comments WBC (test code = See_Comment [Automated message] 6690-2) The system [employer] generated this result transmitted ref erence range: 4.30 - 1 1.10 10*3/?L. The reference range was not used to int erpret this result as normal/abnormal . RBC (test code = 789-8) See_Comment L [Au tomated message] The system [employer] generated this result transmitted ref erence range: [...] See_Comment L [Au tomated message] The system [employer] generated this result transmitted ref erence range: 166 - 35 8 10*3/?L. The reference range was not used to int erpret this result as normal/abnormal . MPV (test code = 10.6 fL 9.5-12.9 31005-4) RDW-CV (test code = 16.2 % 12.0-15.5 H 788-0) RDW-SD (test code = 48.3 fL 39.0-49.9 77345-4) NRBC x10^3 (test code = See_Comment [Au tomated message] 6217514729) The system [employer] generated this result transmitted ref erence range: 10*3/?L. The reference range was not used to int erpret this result as normal/abnormal . NRBC/100 WBC (test code See_Comment [Au tomated message] = 1504073156) The system [employer] generated this result transmitted ref erence range: 0.0 - 10 .0 /100 WBCs. The reference range was not used to int erpret this result as normal/abnormal . IPF % (test code = 3.3 % 1.3-7.7 Platelet count 2514643974) measured by fluorescence me thod. Lab Interpretation Abnormal (test code = 72195-8) [facility] METABOLIC PANEL (NA, K, CL, CO2, GLUCOSE, BUN, CREATININE, CA)2021-10-09 01:19:05 Test Item Value Reference Range Interpretation Comments NA (test code = 135 mmol/L 135-145 8934924176) K (test code = 4.0 mmol/L 3.5-5.0 8331839212) CL (test code = 106 mmol/L 98-108 2879030796) CO2 TOTAL (test code = 27 mmol/L 23-31 9571691236) AGAP (test code = 2-16 5836582290) BUN (test code = 8 mg/dL 7-23 5819481642) GLUCOSE (test code = 98 mg/dL 70-110 1964863482) CREATININE (test code = 0.49 mg/dL 0.50-1.04 L 3729230097) CALCIUM (test code = 7.6 mg/dL 8.6-10.6 L 9897860268) eGFR (test code = mL/min/1.73m2 2948224936) MICKY (test code = MICKY) Association of [...] tests). Lab Interpretation Abnormal (test code = 01190-0) [facility] METABOLIC PANEL (NA, K, CL, CO2, GLUCOSE, BUN, CREATININE, CA)2021-10-09 01:19:05 Test Item Value Reference Range Interpretation Comments NA (test code = 135 mmol/L 135-145 1507632645) K (test code = 4.0 mmol/L 3.5-5.0 9172627385) CL (test code = 106 mmol/L 98-108 9979324806) CO2 TOTAL (test code = 27 mmol/L 23-31 4482515882) AGAP (test code = 2-16 3775795191) BUN (test code = 8 mg/dL 7-23 8774405496) GLUCOSE (test code = 98 mg/dL 70-110 6221576138) CREATININE (test code = 0.49 mg/dL 0.50-1.04 L 8906058489) CALCIUM (test code = 7.6 mg/dL 8.6-10.6 L 4318058404) eGFR (test code = mL/min/1.73m2 1946849815) MICKY (test code = MICKY) Association of [...] tests). Lab Interpretation Abnormal (test code = 65646-5) [facility] METABOLIC PANEL (NA, K, CL, CO2, GLUCOSE, BUN, CREATININE, CA)2021-10-08 16:28:34 Test Item Value Reference Range Interpretation Comments NA (test code = 134 mmol/L 135-145 L 3656162931) K (test code = 4.1 mmol/L 3.5-5.0 0524177632) CL (test code = 106 mmol/L 98-108 7856049996) CO2 TOTAL (test code = 26 mmol/L 23-31 7284405501) AGAP (test code = 2-16 9354988871) BUN (test code = 6 mg/dL 7-23 L 7975113278) GLUCOSE (test code = 124 mg/dL 70-110 H 7540387447) CREATININE (test code = 0.48 mg/dL 0.50-1.04 L 8251403767) CALCIUM (test code = 8.0 mg/dL 8.6-10.6 L 3279795404) eGFR (test code = mL/min/1.73m2 5586288899) MICKY (test code = MICKY) Association of [...] tests). Lab Interpretation Abnormal (test code = 58087-7) [facility] METABOLIC PANEL (NA, K, CL, CO2, GLUCOSE, BUN, CREATININE, CA)2021-10-08 16:28:34 Test Item Value Reference Range Interpretation Comments NA (test code = 134 mmol/L 135-145 L 6568731471) K (test code = 4.1 mmol/L 3.5-5.0 2969669569) CL (test code = 106 mmol/L 98-108 6533954055) CO2 TOTAL (test code = 26 mmol/L 23-31 0205528232) AGAP (test code = 2-16 6767964038) BUN (test code = 6 mg/dL 7-23 L 5038045100) GLUCOSE (test code = 124 mg/dL 70-110 H 2377909065) CREATININE (test code = 0.48 mg/dL 0.50-1.04 L 7627616418) CALCIUM (test code = 8.0 mg/dL 8.6-10.6 L 2089420156) eGFR (test code = mL/min/1.73m2 9645333659) MICKY (test code = MICKY) Association of [...] tests). Lab Interpretation Abnormal (test code = 50792-4) [facility] METABOLIC PANEL (NA, K, CL, CO2, GLUCOSE, BUN, CREATININE, CA)2021-10-08 16:28:34 Test Item Value Reference Range Interpretation Comments NA (test code = 134 mmol/L 135-145 L 4629784581) K (test code = 4.1 mmol/L 3.5-5.0 7678196606) CL (test code = 106 mmol/L 98-108 1798030010) CO2 TOTAL (test code = 26 mmol/L 23-31 9304756330) AGAP (test code = 2-16 9131147648) BUN (test code = 6 mg/dL 7-23 L 1334391810) GLUCOSE (test code = 124 mg/dL 70-110 H 8890811225) CREATININE (test code = 0.48 mg/dL 0.50-1.04 L 1380185841) CALCIUM (test code = 8.0 mg/dL 8.6-10.6 L 8062639398) eGFR (test code = mL/min/1.73m2 6109539397) MICKY (test code = MICKY) Association of [...] tests). Lab Interpretation Abnormal (test code = 12882-8) [facility] WITHOUT [id number] 16:00:11 Test Item Value Reference Range Interpretation Comments WBC (test code = See_Comment [Automated message] 6690-2) The system [employer] generated this result transmitted ref erence range: 4.30 - 1 1.10 10*3/?L. The reference range was not used to int erpret this result as normal/abnormal . RBC (test code = 789-8) See_Comment L [Au tomated message] The system [employer] generated this result transmitted ref erence range: [...] See_Comment L [Au tomated message] The system [employer] generated this result transmitted ref erence range: 166 - 35 8 10*3/?L. The reference range was not used to int erpret this result as normal/abnormal . MPV (test code = 10.6 fL 9.5-12.9 09686-2) RDW-CV (test code = 15.9 % 12.0-15.5 H 788-0) RDW-SD (test code = 47.8 fL 39.0-49.9 96908-1) NRBC x10^3 (test code = See_Comment [Au tomated message] 7845150217) The system [employer] generated this result transmitted ref erence range: 10*3/?L. The reference range was not used to int erpret this result as normal/abnormal . NRBC/100 WBC (test code See_Comment [Au tomated message] = 3680421644) The system [employer] generated this result transmitted ref erence range: 0.0 - 10 .0 /100 WBCs. The reference range was not used to int erpret this result as normal/abnormal . IPF % (test code = 6.3 % 1.3-7.7 Platelet count 1497264689) measured by fluorescence me thod. Lab Interpretation Abnormal (test code = 83937-5) [facility] WITHOUT [id number] 16:00:11 Test Item Value Reference Range Interpretation Comments WBC (test code = See_Comment [Automated message] 6690-2) The system [employer] generated this result transmitted ref erence range: 4.30 - 1 1.10 10*3/?L. The reference range was not used to int erpret this result as normal/abnormal . RBC (test code = 789-8) See_Comment L [Au tomated message] The system [employer] generated this result transmitted ref erence range: [...] See_Comment L [Au tomated message] The system [employer] generated this result transmitted ref erence range: 166 - 35 8 10*3/?L. The reference range was not used to int erpret this result as normal/abnormal . MPV (test code = 10.6 fL 9.5-12.9 84162-1) RDW-CV (test code = 15.9 % 12.0-15.5 H 788-0) RDW-SD (test code = 47.8 fL 39.0-49.9 94901-9) NRBC x10^3 (test code = See_Comment [Au tomated message] 2080028773) The system [employer] generated this result transmitted ref erence range: 10*3/?L. The reference range was not used to int erpret this result as normal/abnormal . NRBC/100 WBC (test code See_Comment [Au tomated message] = 5518227482) The system [employer] generated this result transmitted ref erence range: 0.0 - 10 .0 /100 WBCs. The reference range was not used to int erpret this result as normal/abnormal . IPF % (test code = 6.3 % 1.3-7.7 Platelet count 9611820310) measured by fluorescence me thod. Lab Interpretation Abnormal (test code = 06319-6) [facility] WITHOUT [id number] 16:00:11 Test Item Value Reference Range Interpretation Comments WBC (test code = See_Comment [Automated message] 6690-2) The system [employer] generated this result transmitted ref erence range: 4.30 - 1 1.10 10*3/?L. The reference range was not used to int erpret this result as normal/abnormal . RBC (test code = 789-8) See_Comment L [Au tomated message] The system [employer] generated this result transmitted ref erence range: [...] See_Comment L [Au tomated message] The system [employer] generated this result transmitted ref erence range: 166 - 35 8 10*3/?L. The reference range was not used to int erpret this result as normal/abnormal . MPV (test code = 10.6 fL 9.5-12.9 12842-0) RDW-CV (test code = 15.9 % 12.0-15.5 H 788-0) RDW-SD (test code = 47.8 fL 39.0-49.9 87324-0) NRBC x10^3 (test code = See_Comment [Au tomated message] 8788050839) The system [employer] generated this result transmitted ref erence range: 10*3/?L. The reference range was not used to int erpret this result as normal/abnormal . NRBC/100 WBC (test code See_Comment [Au tomated message] = 4429000323) The system [employer] generated this result transmitted ref erence range: 0.0 - 10 .0 /100 WBCs. The reference range was not used to int erpret this result as normal/abnormal . IPF % (test code = 6.3 % 1.3-7.7 Platelet count 4746296887) measured by fluorescence me thod. Lab Interpretation Abnormal (test code = 66740-9) [facility] 15:36:16 Test Item Value Reference Range Interpretation Comments HGB A1C (test code = 5.3 % 4.0-5.7 4548-4) MICKY (test code = MICKY) Reference RangesNormal: <5.7%Prediabetes: 5.7 - 6.4%Diabetes: > 6.5% Lab Interpretation (test Normal code = 38808-2) [facility] 15:36:16 Test Item Value Reference Range Interpretation Comments HGB A1C (test code = 5.3 % 4.0-5.7 4548-4) MICKY (test code = MICKY) Reference RangesNormal: <5.7%Prediabetes: 5.7 - 6.4%Diabetes: > 6.5% Lab Interpretation (test Normal code = 97254-3) [facility]21[facility]-08 15:36:16 Test Item Value Reference Range Interpretation Comments HGB A1C (test code = 5.3 % 4.0-5.7 4548-4) MICKY (test code = MICKY) Reference RangesNormal: <5.7%Prediabetes: 5.7 - 6.4%Diabetes: > 6.5% Lab Interpretation (test Normal code = 56534-0) [facility] METABOLIC PANEL (NA, K, CL, CO2, GLUCOSE, BUN, CREATININE, CA)2021-10-08 13:25:28 Test Item Value Reference Range Interpretation Comments NA (test code = 135 mmol/L 135-145 8378910636) K (test code = 4.0 mmol/L 3.5-5.0 3353214129) CL (test code = 110 mmol/L 98-108 H 6633649200) CO2 TOTAL (test code = 23 mmol/L 23-31 1019837456) AGAP (test code = 2-16 4046555492) BUN (test code = 8 mg/dL 7-23 9897795161) GLUCOSE (test code = 98 mg/dL 70-110 1653956111) CREATININE (test code = 0.48 mg/dL 0.50-1.04 L 1661877824) CALCIUM (test code = 9.7 mg/dL 8.6-10.6 2350789775) eGFR (test code = mL/min/1.73m2 1464778650) MICKY (test code = MICKY) Association of [...] tests). Lab Interpretation Abnormal (test code = 69844-2) [facility] METABOLIC PANEL (NA, K, CL, CO2, GLUCOSE, BUN, CREATININE, CA)2021-10-08 13:25:28 Test Item Value Reference Range Interpretation Comments NA (test code = 135 mmol/L 135-145 2889558850) K (test code = 4.0 mmol/L 3.5-5.0 4047469630) CL (test code = 110 mmol/L 98-108 H 3602426045) CO2 TOTAL (test code = 23 mmol/L 23-31 2748041495) AGAP (test code = 2-16 7634224262) BUN (test code = 8 mg/dL 7-23 3674122921) GLUCOSE (test code = 98 mg/dL 70-110 1818289244) CREATININE (test code = 0.48 mg/dL 0.50-1.04 L 0894681767) CALCIUM (test code = 9.7 mg/dL 8.6-10.6 0035157819) eGFR (test code = mL/min/1.73m2 8184634931) MICKY (test code = MICKY) Association of [...] tests). Lab Interpretation Abnormal (test code = 40849-1) [facility] (NA, K, CL, CO2, GLUCOSE, BUN, CREATININE, CA)2021-10-08 13:25:28 Test Item Value Reference Range Interpretation Comments NA (test code = 135 mmol/L 135-145 7920500762) K (test code = 4.0 mmol/L 3.5-5.0 6406277584) CL (test code = 110 mmol/L 98-108 H 1529786372) CO2 TOTAL (test code = 23 mmol/L 23-31 5559289925) AGAP (test code = 2-16 8580376231) BUN (test code = 8 mg/dL 7-23 4945785468) GLUCOSE (test code = 98 mg/dL 70-110 9727647882) CREATININE (test code = 0.48 mg/dL 0.50-1.04 L 3800732096) CALCIUM (test code = 9.7 mg/dL 8.6-10.6 4516109526) eGFR (test code = mL/min/1.73m2 2171773417) MICKY (test code = MICKY) Association of [...] tests). Lab Interpretation Abnormal (test code = 09797-1) [facility] Test Item Value Reference Range Interpretation Comments MAGNESIUM (test code = 9124920385) 1.4 mg/dL 1.7-2.4 L Lab Interpretation (test code = Abnormal 90107-2) [facility] 13:19:15 Test Item Value Reference Range Interpretation Comments PHOSPHORUS (test code = 6288600079) 4.3 mg/dL 2.5-5.0 Lab Interpretation (test code = Normal 73925-3) [facility]64021[facility] (ALB,T.PRO,BILI T,BU/BC,ALT,AST,ALK PHOS)2021-10-08 13:19:15 Test Item Value Reference Range Interpretation Comments TOTAL BILI (test code = 4025684391) 1.5 mg/dL 0.1-1.1 H BILI UNCON (test code = 7863054440) 1.3 mg/dL 0.1-1.1 H BILI CONJ (test code = 8568409253) 0.0 mg/dL 0.0-0.3 T PROTEIN (test code = 5549645510) 4.9 g/dL 6.3-8.2 L ALBUMIN (test code = 7950425321) 2.7 g/dL 3.5-5.0 L ALK PHOS (test code = 7757131174) 46 U/L 34-122 ALTv (test code = 1742-6) 13 U/L 5-35 AST(SGOT) (test code = 8747142596) 24 U/L 13-40 Lab Interpretation (test code = Abnormal 02473-5) [facility] 13:19:15 Test Item Value Reference Range Interpretation Comments MAGNESIUM (test code = 9450583330) 1.4 mg/dL 1.7-2.4 L Lab Interpretation (test code = Abnormal 64123-3) [facility] 13:19:15 Test Item Value Reference Range Interpretation Comments PHOSPHORUS (test code = 1801243411) 4.3 mg/dL 2.5-5.0 Lab Interpretation (test code = Normal 51351-5) [facility]81564[facility] (ALB,T.PRO,BILI T,BU/BC,ALT,AST,ALK PHOS)2021-10-08 13:19:15 Test Item Value Reference Range Interpretation Comments TOTAL BILI (test code = 2162141348) 1.5 mg/dL 0.1-1.1 H BILI UNCON (test code = 7106491712) 1.3 mg/dL 0.1-1.1 H BILI CONJ (test code = 4724807622) 0.0 mg/dL 0.0-0.3 T PROTEIN (test code = 8792770101) 4.9 g/dL 6.3-8.2 L ALBUMIN (test code = 6804178571) 2.7 g/dL 3.5-5.0 L ALK PHOS (test code = 3451119424) 46 U/L 34-122 ALTv (test code = 1742-6) 13 U/L 5-35 AST(SGOT) (test code = 5953808152) 24 U/L 13-40 Lab Interpretation (test code = Abnormal 40013-9) [facility] 13:19:15 Test Item Value Reference Range Interpretation Comments MAGNESIUM (test code = 9223039374) 1.4 mg/dL 1.7-2.4 L Lab Interpretation (test code = Abnormal 38451-9) [facility] 13:19:15 Test Item Value Reference Range Interpretation Comments PHOSPHORUS (test code = 9737831364) 4.3 mg/dL 2.5-5.0 Lab Interpretation (test code = Normal 16512-9) [facility]53358[facility] (ALB,T.PRO,BILI T,BU/BC,ALT,AST,ALK PHOS)2021-10-08 13:19:15 Test Item Value Reference Range Interpretation Comments TOTAL BILI (test code = 1932612149) 1.5 mg/dL 0.1-1.1 H BILI UNCON (test code = 5635974119) 1.3 mg/dL 0.1-1.1 H BILI CONJ (test code = 1395828323) 0.0 mg/dL 0.0-0.3 T PROTEIN (test code = 4938333183) 4.9 g/dL 6.3-8.2 L ALBUMIN (test code = 0854291842) 2.7 g/dL 3.5-5.0 L ALK PHOS (test code = 4504389146) 46 U/L 34-122 ALTv (test code = 1742-6) 13 U/L 5-35 AST(SGOT) (test code = 5309176365) 24 U/L 13-40 Lab Interpretation (test code = Abnormal 21886-9) [facility] WITH [id number] 11:26:11 Test Item Value Reference Range Interpretation [...] RDW-SD (test code = 46.1 fL 39.0-49.9 04017-0) RDW-CV (test code = 15.2 % 12.0-15.5 788-0) PLT (test code = See_Comment L [Automated 777-3) message] The sy stem which generated this result transmitted reference range : 166 - 358 10*3/ ?L. The reference r susan was not used to interpret this result as normal/abnormal . MPV (test code = 11.0 fL 9.5-12.9 83220-9) IPF % (test code = 4.9 % 1.3-7.7 Platelet count 8805427240) measured by fluorescence method. NRBC/100 WBC (test See_Comment [Automat ed code = 0047455679) message] The system which generated this result transmitted reference range : 0.0 - 10.0 /100 WBCs. The refer ence range was not u sed to interpret th is result as normal/abnormal . NRBC x10^3 (test code <0.01 See_Comment [Auto mated = 7267225048) message] The s ystem which generated this result transmitted reference range : 10*3/?L. The reference range was not used to interpret this result as normal/abnormal . GRAN MAT (NEUT) % 84.1 % (test code = 770-8) IMM GRAN % (test code 0.60 % = 8726668394) LYMPH % (test code = 4.2 % 736-9) MONO % (test code = 11.0 % 5905-5) EOS % (test code = 0.0 % 713-8) BASO % (test code = 0.1 % 706-2) GRAN MAT x10^3(ANC) 6.05 10*3/uL 1.88-7.09 (test code = 3913471587) IMM GRAN x10^3 (test 0.04 10*3/uL 0.00-0.06 code = 0764948735) LYMPH x10^3 (test code 0.30 10*3/uL 1.32-3.29 L = 731-0) MONO x10^3 (test code 0.79 10*3/uL 0.33-0.92 = 742-7) EOS x10^3 (test code = <0.03 0.03-0.39 L 711-2) BASO x10^3 (test code <0.03 0.01-0.07 = 704-7) POLYCHROMASIA (test 2+ See_Comment [Automa ramana code = 50467-8) message] The system which generated this result transmitted reference range : 2+. The referen ce range was not u sed to interpret th is result as normal/abnormal . Lab Interpretation Abnormal (test code = 99352-0) [facility] WITH [id number] 11:26:11 Test Item Value Reference Range Interpretation [...] RDW-SD (test code = 46.1 fL 39.0-49.9 74650-7) RDW-CV (test code = 15.2 % 12.0-15.5 788-0) PLT (test code = See_Comment L [Automated 777-3) message] The sy stem which generated this result transmitted reference range : 166 - 358 10*3/ ?L. The reference r susan was not used to interpret this result as normal/abnormal . MPV (test code = 11.0 fL 9.5-12.9 38699-4) IPF % (test code = 4.9 % 1.3-7.7 Platelet count [id number]) measured by fluorescence method. NRBC/100 WBC (test See_Comment [Automat ed code = 8855665827) message] The system which generated this result transmitted reference range : 0.0 - 10.0 /100 WBCs. The refer ence range was not u sed to interpret th is result as normal/abnormal . NRBC x10^3 (test code <0.01 See_Comment [Auto mated = 3712224168) message] The s ystem which generated this result transmitted reference range : 10*3/?L. The reference range was not used to interpret this result as normal/abnormal . GRAN MAT (NEUT) % 84.1 % (test code = 770-8) IMM GRAN % (test code 0.60 % = 6339471821) LYMPH % (test code = 4.2 % 736-9) MONO % (test code = 11.0 % 5905-5) EOS % (test code = 0.0 % 713-8) BASO % (test code = 0.1 % 706-2) GRAN MAT x10^3(ANC) 6.05 10*3/uL 1.88-7.09 (test code = 4553020798) IMM GRAN x10^3 (test 0.04 10*3/uL 0.00-0.06 code = 0327277553) LYMPH x10^3 (test code 0.30 10*3/uL 1.32-3.29 L = 731-0) MONO x10^3 (test code 0.79 10*3/uL 0.33-0.92 = 742-7) EOS x10^3 (test code = <0.03 0.03-0.39 L 711-2) BASO x10^3 (test code <0.03 0.01-0.07 = 704-7) POLYCHROMASIA (test 2+ See_Comment [Automa ramana code = 05651-3) message] The system which generated this result transmitted reference range : 2+. The referen ce range was not u sed to interpret th is result as normal/abnormal . Lab Interpretation Abnormal (test code = 37533-6) [facility] WITH [id number] 11:26:11 Test Item Value Reference Range Interpretation Comments WBC (test code = See_Comment [Automated 7790-2) message] The sy stem which generated this result transmitted reference range : 4.30 - 11.10 10*3/?L. The reference range was not used to interpret this result as normal/abnormal . RBC (test code = See_Comment L [Automated 689-8) message] The sy stem which generated this [...] RDW-SD (test code = 46.1 fL 39.0-49.9 41636-5) RDW-CV (test code = 15.2 % 12.0-15.5 788-0) PLT (test code = See_Comment L [Automated 777-3) message] The sy stem which generated this result transmitted reference range : 166 - 358 10*3/ ?L. The reference r susan was not used to interpret this result as normal/abnormal . MPV (test code = 11.0 fL 9.5-12.9 12229-8) IPF % (test code = 4.9 % 1.3-7.7 Platelet count [id number]) measured by fluorescence method. NRBC/100 WBC (test See_Comment [Automat ed code = 1079684302) message] The system which generated this result transmitted reference range : 0.0 - 10.0 /100 WBCs. The refer ence range was not u sed to interpret th is result as normal/abnormal . NRBC x10^3 (test code <0.01 See_Comment [Auto mated = 9211703606) message] The s ystem which generated this result transmitted reference range : 10*3/?L. The reference range was not used to interpret this result as normal/abnormal . GRAN MAT (NEUT) % 84.1 % (test code = 770-8) IMM GRAN % (test code 0.60 % = 3385387283) LYMPH % (test code = 4.2 % 736-9) MONO % (test code = 11.0 % 5905-5) EOS % (test code = 0.0 % 713-8) BASO % (test code = 0.1 % 706-2) GRAN MAT x10^3(ANC) 6.05 10*3/uL 1.88-7.09 (test code = 3273424676) IMM GRAN x10^3 (test 0.04 10*3/uL 0.00-0.06 code = 2268823059) LYMPH x10^3 (test code 0.30 10*3/uL 1.32-3.29 L = 731-0) MONO x10^3 (test code 0.79 10*3/uL 0.33-0.92 = 742-7) EOS x10^3 (test code = <0.03 0.03-0.39 L 711-2) BASO x10^3 (test code <0.03 0.01-0.07 = 704-7) POLYCHROMASIA (test 2+ See_Comment [Automa ramana code = 40135-3) message] The system which generated this result transmitted reference range : 2+. The referen ce range was not u sed to interpret th is result as normal/abnormal . Lab Interpretation Abnormal (test code = 70225-4) [facility] / [id number] 11:04:07 Test Item Value Reference Range Interpretation Comments PROTIME PATIENT (test See_Comment L [Auto mated message] code = 5964-2) The system [employer] generated this result transmitted ref erence range: 12.0 - 1 4.7 Seconds. The reference range was not used to int erpret this result as normal/abnormal . INR (test code = 6301-6) Nor mal INR <1.1; Warfarin Therap eutic range 2.0 to 3. 0 or 2.5 to 3.5, dep ending upon the indica tions. Lab Interpretation (test Abnormal code = 24890-5) [facility] / [id number] 11:04:07 Test Item Value Reference Range Interpretation Comments PROTIME PATIENT (test See_Comment L [Auto mated message] code = 5964-2) The system [employer] generated this result transmitted ref erence range: 12.0 - 1 4.7 Seconds. The reference range was not used to int erpret this result as normal/abnormal . INR (test code = 6301-6) Nor mal INR <1.1; Warfarin Therap eutic range 2.0 to 3. 0 or 2.5 to 3.5, dep ending upon the indica tions. Lab Interpretation (test Abnormal code = 29998-8) [facility] / [id number] 11:04:07 Test Item Value Reference Range Interpretation Comments PROTIME PATIENT (test See_Comment L [Auto mated message] code = 5964-2) The system [employer] generated this result transmitted ref erence range: 12.0 - 1 4.7 Seconds. The reference range was not used to int erpret this result as normal/abnormal . INR (test code = 6301-6) Nor mal INR <1.1; Warfarin Therap eutic range 2.0 to 3. 0 or 2.5 to 3.5, dep ending upon the indica tions. Lab Interpretation (test Abnormal code = 57664-1) [facility] 10:56:58 Test Item Value Reference Range Interpretation Comments Fibrinogen (test code = 6196818604) 233 mg/dL 167-453 Lab Interpretation (test code = Normal 14127-5) [facility]58 Test Item Value Reference Range Interpretation Comments Fibrinogen (test code = 5096012951) 233 mg/dL 167-453 Lab Interpretation (test code = Normal 43382-1) [facility] 10:56[facility]58 Test Item Value Reference Range Interpretation Comments Fibrinogen (test code = 6020043622) 233 mg/dL 167-453 Lab Interpretation (test code = Normal 09240-0) [facility] [id number] 10:55:23 Test Item Value Reference Range Interpretation Comments APTT Patient (test code = See_Comment [ Automated message] 3173-2) The system [employer] generated this result transmitted ref erence range: 26 - 36 Seconds. The re ference range was not u sed to interpret this result as normal/abnor mal. Lab Interpretation (test Normal code = 79779-6) [facility] [id number] 10:55:23 Test Item Value Reference Range Interpretation Comments APTT Patient (test code = See_Comment [ Automated message] 3173-2) The system [employer] generated this result transmitted ref erence range: 26 - 36 Seconds. The re ference range was not u sed to interpret this result as normal/abnor mal. Lab Interpretation (test Normal code = 33477-9) [facility] [id number] 10:55:23 Test Item Value Reference Range Interpretation Comments APTT Patient (test code = See_Comment [ Automated message] 3173-2) The system whic h generated this result transmitted ref erence range: 26 - 36 Seconds. The re ference range was not u sed to interpret this result as normal/abnor mal. Lab Interpretation (test Normal code = 16350-3) [facility] + Lactic [id number] 10:32:44 Test Item Value Reference Range Interpretation Comments PH (test code = 2) 7.35-7.45 PCO2 (test code = See_Comment [Automate d 1011025180) message] The sy stem which generated this result transmitted reference range : 35 - 45 mmHg. The reference range was not used to interpret this result as normal/abnormal . PO2 (test code = See_Comment H [Automated 8613537185) message] The sy stem which generated this result transmitted reference range : 80 - 100 mmHg. The reference range was not used to interpret this result as normal/abnormal . HCO3 (test code = See_Comment [Automate d 6189243469) message] The sy stem which generated this result transmitted reference range : 22 - 26 mEq/L. The reference range was not used to interpret this result as normal/abnormal . BE (test code = See_Comment [Automated 7841159604) message] The sy stem which generated this result transmitted reference range : -3.0 - 3.0 mEq/ L. The reference r susan was not used to interpret this result as normal/abnormal . THB (test code = 7.7 g/dL 12.0-16.0 LL 1610579576) %O2HB (test code = 97.4 % 94.0-99.0 3695419607) %COHB ART (test code = 1.4 % 0.0-1.5 8107612694) %METHB ART (test code = 0.3 % 0.4-1.5 L 1177109405) VOL%O2 ART (test code = 11.0 % 15.0-23.0 L 6178648651) NA (test code = 132 mmol/L 135-145 L 3701481435) K+ (test code = 3.9 mmol/L 3.5-5.0 5416102332) AC CA IONZ (test code = 5.40 mg/dL 4.50-5.30 H 5686660400) GLUCOSE (test code = 98 mg/dL 70-110 6207738365) LACTIC ACID (test code 1.16 mmol/L 0.50-2.20 = 7446777235) Lab Interpretation Abnormal (test code = 08539-4) [facility] + Lactic [id number] 10:32:44 Test Item Value Reference Range Interpretation Comments PH (test code = 2) 7.35-7.45 PCO2 (test code = See_Comment [Automate d 3219601519) message] The sy stem which generated this result transmitted reference range : 35 - 45 mmHg. The reference range was not used to interpret this result as normal/abnormal . PO2 (test code = See_Comment H [Automated 1792441993) message] The sy stem which generated this result transmitted reference range : 80 - 100 mmHg. The reference range was not used to interpret this result as normal/abnormal . HCO3 (test code = See_Comment [Automate d 6979428219) message] The sy stem which generated this result transmitted reference range : 22 - 26 mEq/L. The reference range was not used to interpret this result as normal/abnormal . BE (test code = See_Comment [Automated 8044343790) message] The sy stem which generated this result transmitted reference range : -3.0 - 3.0 mEq/ L. The reference r susan was not used to interpret this result as normal/abnormal . THB (test code = 7.7 g/dL 12.0-16.0 LL 7858042164) %O2HB (test code = 97.4 % 94.0-99.0 5851620167) %COHB ART (test code = 1.4 % 0.0-1.5 6862625242) %METHB ART (test code = 0.3 % 0.4-1.5 L 8874981634) VOL%O2 ART (test code = 11.0 % 15.0-23.0 L 9649205753) NA (test code = 132 mmol/L 135-145 L 7729433324) K+ (test code = 3.9 mmol/L 3.5-5.0 9262388513) AC CA IONZ (test code = 5.40 mg/dL 4.50-5.30 H 3682439133) GLUCOSE (test code = 98 mg/dL 70-110 2243418574) LACTIC ACID (test code 1.16 mmol/L 0.50-2.20 = 8851489029) Lab Interpretation Abnormal (test code = 81190-2) [facility] + Lactic [id number] 10:32:44 Test Item Value Reference Range Interpretation Comments PH (test code = 2) 7.35-7.45 PCO2 (test code = See_Comment [Automate d 0889683588) message] The sy stem which generated this result transmitted reference range : 35 - 45 mmHg. The reference range was not used to interpret this result as normal/abnormal . PO2 (test code = See_Comment H [Automated 4983030015) message] The sy stem which generated this result transmitted reference range : 80 - 100 mmHg. The reference range was not used to interpret this result as normal/abnormal . HCO3 (test code = See_Comment [Automate d 2113558355) message] The sy stem which generated this result transmitted reference range : 22 - 26 mEq/L. The reference range was not used to interpret this result as normal/abnormal . BE (test code = See_Comment [Automated 4608990613) message] The sy stem which generated this result transmitted reference range : -3.0 - 3.0 mEq/ L. The reference r susan was not used to interpret this result as normal/abnormal . THB (test code = 7.7 g/dL 12.0-16.0 LL 5124458628) %O2HB (test code = 97.4 % 94.0-99.0 7336665345) %COHB ART (test code = 1.4 % 0.0-1.5 1797209518) %METHB ART (test code = 0.3 % 0.4-1.5 L 8050803142) VOL%O2 ART (test code = 11.0 % 15.0-23.0 L 5209063407) NA (test code = 132 mmol/L 135-145 L 5632504756) K+ (test code = 3.9 mmol/L 3.5-5.0 3742626472) AC CA IONZ (test code = 5.40 mg/dL 4.50-5.30 H 8562731791) GLUCOSE (test code = 98 mg/dL 70-110 4252550642) LACTIC ACID (test code 1.16 mmol/L 0.50-2.20 = 3495590512) Lab Interpretation Abnormal (test code = 70020-2) [facility] / [id number] 10:25:01 Test Item Value Reference Range Interpretation Comments PROTIME PATIENT (test See_Comment L [Auto mated message] code = 5964-2) The system [employer] generated this result transmitted ref erence range: 12.0 - 1 4.7 Seconds. The reference range was not used to int erpret this result as normal/abnormal . INR (test code = 6301-6) Nor mal INR <1.1; Warfarin Therap eutic range 2.0 to 3. 0 or 2.5 to 3.5, dep ending upon the indica tions. Lab Interpretation (test Abnormal code = 67691-7) [facility] / [id number] 10:25:01 Test Item Value Reference Range Interpretation Comments PROTIME PATIENT (test See_Comment L [Auto mated message] code = 5964-2) The system [employer] generated this result transmitted ref erence range: 12.0 - 1 4.7 Seconds. The reference range was not used to int erpret this result as normal/abnormal . INR (test code = 6301-6) Nor mal INR <1.1; Warfarin Therap eutic range 2.0 to 3. 0 or 2.5 to 3.5, dep ending upon the indica tions. Lab Interpretation (test Abnormal code = 71391-9) [facility] / [id number] 10:25:01 Test Item Value Reference Range Interpretation Comments PROTIME PATIENT (test See_Comment L [Auto mated message] code = 5964-2) The system [employer] generated this result transmitted ref erence range: 12.0 - 1 4.7 Seconds. The reference range was not used to int erpret this result as normal/abnormal . INR (test code = 6301-6) Nor mal INR <1.1; Warfarin Therap eutic range 2.0 to 3. 0 or 2.5 to 3.5, dep ending upon the indica tions. Lab Interpretation (test Abnormal code = 39563-5) [facility] Plasma (in units)~2021-10-08 09:48:16 Test Item Value Reference Range Interpretation Comments Unit Blood Type (test A Pos code = 4410) ISBT Blood Type Code (test code = 699054) Unit Number (test code [id number] = 4411) Blood Expiration Date & Time (test code = 136943) Status Information Issued (test code = 4412) Product Identification FFP (test code = 4413) Product Code (test A8023D42 Performed at [facility] [[email or web address] code = 4414) Laboratory Services [address] [address]Oryx Free: [phone] A No. [id number] [facility]2021-10-08 09:48:16 Test Item Value Reference Range Interpretation Comments Unit Blood Type (test A Pos code = 4410) ISBT Blood Type Code (test code = 580469) Unit Number (test code [id number] = 4411) Blood Expiration Date & Time (test code = 148296) Status Information Issued (test code = 4412) Product Identification FFP (test code = 4413) Product Code (test A7909T44 Performed at [facility] [[email or web address] code = 4414) Laboratory Services [address] [address]Nepn Free: [phone] A No. [id number] [facility] Plasma (in units)~2021-10-08 09:48:16 Test Item Value Reference Range Interpretation Comments Unit Blood Type (test A Pos code = 4410) ISBT Blood Type Code (test code = 819574) Unit Number (test code [id number] = 4411) Blood Expiration Date & Time (test code = 027105) Status Information Issued (test code = 4412) Product Identification FFP (test code = 4413) Product Code (test A7799I22 Performed at [facility] [[email or web address] code = 4414) Laboratory Services - [facility] Blood [address] [address]Korz Free: [phone] A No. [id number] [facility] Packed RBC (in units)2021-10-08 09:47:11 Test Item Value Reference Range Interpretation Comments Cross Match Result Compatible (test code = 4409) ISBT Blood Type Code (test code = 350437) Unit Blood Type (test A Pos code = 4410) Unit Number (test [id number] code = 4411) Blood Expiration Date & Time (test code = 513783) Status Information Issued (test code = 4412) Product Red Blood Cells Identification (test code = 4413) Product Code (test J4384H96 Performed at [facility] [[email or web address] code = 4414) Laboratory Services - [facility] Blood [address] [address]Qhtw Free: [phone] A No. [id number] [facility] Packed RBC (in units)2021-10-08 09:47:11 Test Item Value Reference Range Interpretation Comments Cross Match Result Compatible (test code = 4409) ISBT Blood Type Code (test code = 157103) Unit Blood Type (test A Pos code = 4410) Unit Number (test [id number] code = 4411) Blood Expiration Date & Time (test code = 088597) Status Information Issued (test code = 4412) Product Red Blood Cells Identification (test code = 4413) Product Code (test P1263A63 Performed at [facility] [[email or web address] code = 4414) Laboratory Services - [facility] Blood [address] [address]Lbou Free: [phone] A No. [id number] [facility] Packed RBC (in units)2021-10-08 09:47:11 Test Item Value Reference Range Interpretation Comments Cross Match Result Compatible (test code = 4409) ISBT Blood Type Code (test code = 004195) Unit Blood Type (test A Pos code = 4410) Unit Number (test [id number] code = 4411) Blood Expiration Date & Time (test code = 154249) Status Information Issued (test code = 4412) Product Red Blood Cells Identification (test code = 4413) Product Code (test Y2866U56 Performed at [facility] [[email or web address] code = 4414) Laboratory Services - [facility] Blood [address] [address]Czrb Free: [phone] A No. [id number] [facility]2022-06-24 08:38:17 FibrinogenComment: PT/INR failed. Fib autoverified. Need new order. Spoke to MCKENZIE Mireles/Dr. Streeter. This is a corrected result. ?Previous result was 165 mg/dL on 10/08/[address] [place] [address] [facility] [id number] 08:38:17FibrinogenComment: PT/INR failed. Fib autoverified. Need new order. Spoke to MCKENZIE Mireles/Dr. Streeter. This is a corrected result. ?Previous result was 165 mg/dL on 10/08/[address] [place] [address] [facility]IB[facility]EN2022-06-24 08:38:17FibrinogenComment: PT/INR failed. Fib autoverified. Need new order. Spoke to MCKENZIE Mireles/Dr. Streeter. This is a corrected result. ?Previous result was 165 mg/dL on 10/08/[address] [place] [address] [facility] SERVICESNav[facility] HospitalCBC WITHOUT [id number] 08:34:10 Test Item Value Reference Range Interpretation Comments WBC (test code = See_Comment [Automated message] 6690-2) The system [employer] generated this result transmitted ref erence range: 4.30 - 1 1.10 10*3/?L. The reference range was not used to int erpret this result as normal/abnormal . RBC (test code = 789-8) See_Comment L [Au tomated message] The system [employer] generated this result transmitted ref erence range: [...] See_Comment L [Au tomated message] The system [employer] generated this result transmitted ref erence range: 166 - 35 8 10*3/?L. The reference range was not used to int erpret this result as normal/abnormal . MPV (test code = 11.4 fL 9.5-12.9 88080-8) RDW-CV (test code = 14.8 % 12.0-15.5 788-0) RDW-SD (test code = 47.3 fL 39.0-49.9 30068-2) NRBC x10^3 (test code = <0.01 See_Comment [Au tomated message] 7452552786) The system [employer] generated this result transmitted ref erence range: 10*3/?L. The reference range was not used to int erpret this result as normal/abnormal . NRBC/100 WBC (test code See_Comment [Au tomated message] = 8192119184) The system [employer] generated this result transmitted ref erence range: 0.0 - 10 .0 /100 WBCs. The reference range was not used to int erpret this result as normal/abnormal . IPF % (test code = 5.9 % 1.3-7.7 Platelet count 3788322386) measured by fluorescence me thod. Lab Interpretation Abnormal (test code = 79273-9) [facility] WITHOUT [id number] 08:34:10 Test Item Value Reference Range Interpretation Comments WBC (test code = See_Comment [Automated message] 6690-2) The system [employer] generated this result transmitted ref erence range: 4.30 - 1 1.10 10*3/?L. The reference range was not used to int erpret this result as normal/abnormal . RBC (test code = 789-8) See_Comment L [Au tomated message] The system [employer] generated this result transmitted ref erence range: [...] See_Comment L [Au tomated message] The system [employer] generated this result transmitted ref erence range: 166 - 35 8 10*3/?L. The reference range was not used to int erpret this result as normal/abnormal . MPV (test code = 11.4 fL 9.5-12.9 35516-2) RDW-CV (test code = 14.8 % 12.0-15.5 788-0) RDW-SD (test code = 47.3 fL 39.0-49.9 82080-0) NRBC x10^3 (test code = <0.01 See_Comment [Au tomated message] 6361485208) The system [employer] generated this result transmitted ref erence range: 10*3/?L. The reference range was not used to int erpret this result as normal/abnormal . NRBC/100 WBC (test code See_Comment [Au tomated message] = 3562247406) The system [employer] generated this result transmitted ref erence range: 0.0 - 10 .0 /100 WBCs. The reference range was not used to int erpret this result as normal/abnormal . IPF % (test code = 5.9 % 1.3-7.7 Platelet count [id number]) measured by fluorescence me thod. Lab Interpretation Abnormal (test code = 78499-6) [facility] WITHOUT [id number] 08:34:10 Test Item Value Reference Range Interpretation Comments WBC (test code = See_Comment [Automated message] 6690-2) The system [employer] generated this result transmitted ref erence range: 4.30 - 1 1.10 10*3/?L. The reference range was not used to int erpret this result as normal/abnormal . RBC (test code = 789-8) See_Comment L [Au tomated message] The system [employer] generated this result transmitted ref erence range: [...] See_Comment L [Au tomated message] The system [employer] generated this result transmitted ref erence range: 166 - 35 8 10*3/?L. The reference range was not used to int erpret this result as normal/abnormal . MPV (test code = 11.4 fL 9.5-12.9 09407-7) RDW-CV (test code = 14.8 % 12.0-15.5 788-0) RDW-SD (test code = 47.3 fL 39.0-49.9 66863-2) NRBC x10^3 (test code = <0.01 See_Comment [Au tomated message] 8616293852) The system [employer] generated this result transmitted ref erence range: 10*3/?L. The reference range was not used to int erpret this result as normal/abnormal . NRBC/100 WBC (test code See_Comment [Au tomated message] = 1454654556) The system [facility] generated this result transmitted ref erence range: 0.0 - 10 .0 /100 WBCs. The reference range was not used to int erpret this result as normal/abnormal . IPF % (test code = 5.9 % 1.3-7.7 Platelet count [id number]) measured by fluorescence me thod. Lab Interpretation Abnormal (test code = 25482-4) [facility]21[facility]-08 07:24:24 Test Item Value Reference Range Interpretation Comments Unit Blood Type (test A code = 4410) ISBT Blood Type Code A000 (test code = 396900) Unit Number (test [id number] code = 4411) Blood Expiration Date & Time (test code = 925755) Status Information Issued (test code = 4412) Product Cryoprecipitate Identification (test code = 4413) Product Code (test C0038Y57 Performed at [facility] [[email or web address] code = 4414) Laboratory Services [address] [address]Eprw Free: [phone] A No. [id number] [facility] Cryoprecipitate (in units)~2021-10-08 07:24:24 Test Item Value Reference Range Interpretation Comments Unit Blood Type (test A code = 4410) ISBT Blood Type Code A000 (test code = 207123) Unit Number (test [id number] code = 4411) Blood Expiration Date & Time (test code = 186418) Status Information Issued (test code = 4412) Product Cryoprecipitate Identification (test code = 4413) Product Code (test [id number] Performed at [facility] [[email or web address] code = 4414) Laboratory Services - [facility] Blood [address] [address]Aeyr Free: [phone] A No. [id number] [facility] Cryoprecipitate (in units)~2021-10-08 07:24:24 Test Item Value Reference Range Interpretation Comments Unit Blood Type (test A code = 4410) ISBT Blood Type Code A000 (test code = 829561) Unit Number (test [id number] code = 4411) Blood Expiration Date & Time (test code = 469935) Status Information Issued (test code = 4412) Product Cryoprecipitate Identification (test code = 4413) Product Code (test [id number] Performed at [facility] [[email or web address] code = 4414) Laboratory Services - [facility] [address] [address]Tsju Free: [phone] A No. [id number] [facility] (NA, K, CL, CO2, GLUCOSE, BUN, CREATININE, CA)2021-10-08 07:14:23 Test Item Value Reference Range Interpretation Comments NA (test code = 134 mmol/L 135-145 L 0275961323) K (test code = 4.6 mmol/L 3.5-5.0 3085490721) CL (test code = 109 mmol/L 98-108 H 2933456102) CO2 TOTAL (test code = 21 mmol/L 23-31 L 9081245115) AGAP (test code = 2-16 7952499340) BUN (test code = 9 mg/dL 7-23 6720604777) GLUCOSE (test code = 206 mg/dL 70-110 H 9424081200) CREATININE (test code = 0.61 mg/dL 0.50-1.04 3621254801) CALCIUM (test code = 7.5 mg/dL 8.6-10.6 L 4153033299) eGFR (test code = mL/min/1.73m2 5898098601) MICKY (test code = MICKY) Association of [...] tests). Lab Interpretation Abnormal (test code = 97924-3) [facility] (NA, K, CL, CO2, GLUCOSE, BUN, CREATININE, CA)2021-10-08 07:14:23 Test Item Value Reference Range Interpretation Comments NA (test code = 134 mmol/L 135-145 L 8941185800) K (test code = 4.6 mmol/L 3.5-5.0 0093274360) CL (test code = 109 mmol/L 98-108 H 2583797996) CO2 TOTAL (test code = 21 mmol/L 23-31 L 9155851451) AGAP (test code = 2-16 6319838591) BUN (test code = 9 mg/dL 7-23 3568454504) GLUCOSE (test code = 206 mg/dL 70-110 H 3069781178) CREATININE (test code = 0.61 mg/dL 0.50-1.04 1587247721) CALCIUM (test code = 7.5 mg/dL 8.6-10.6 L 9809313841) eGFR (test code = mL/min/1.73m2 4253381211) MICKY (test code = MICKY) Association of [...] tests). Lab Interpretation Abnormal (test code = 65854-7) [facility] METABOLIC PANEL (NA, K, CL, CO2, GLUCOSE, BUN, CREATININE, CA)2021-10-08 07:14:23 Test Item Value Reference Range Interpretation Comments NA (test code = 134 mmol/L 135-145 L 3143483293) K (test code = 4.6 mmol/L 3.5-5.0 3967507713) CL (test code = 109 mmol/L 98-108 H 8740090573) CO2 TOTAL (test code = 21 mmol/L 23-31 L 4810131342) AGAP (test code = 2-16 3209840145) BUN (test code = 9 mg/dL 7-23 8055293866) GLUCOSE (test code = 206 mg/dL 70-110 H 5034477580) CREATININE (test code = 0.61 mg/dL 0.50-1.04 8743569803) CALCIUM (test code = 7.5 mg/dL 8.6-10.6 L 6974954362) eGFR (test code = mL/min/1.73m2 9576983649) MICKY (test code = MICKY) Association of [...] tests). Lab Interpretation Abnormal (test code = 29923-4) [facility]2022-06-24 06:46:57 Test Item Value Reference Range Interpretation Comments Fibrinogen (test code = 4430667076) 174 mg/dL 167-453 Lab Interpretation (test code = Normal 34467-1) [facility]2022-06-24 06:46:57 Test Item Value Reference Range Interpretation Comments Fibrinogen (test code = 9209193965) 174 mg/dL 167-453 Lab Interpretation (test code = Normal 89545-0) [facility]2022-06-24 06:46:57 Test Item Value Reference Range Interpretation Comments Fibrinogen (test code = 4511174895) 174 mg/dL 167-453 Lab Interpretation (test code = Normal 05227-3) [facility]2022-06-24 06:45:07 Test Item Value Reference Range Interpretation Comments Fibrinogen (test code = 1666079707) 196 mg/dL 167-453 Lab Interpretation (test code = Normal 81902-1) [facility]2022-06-24 06:45:07 Test Item Value Reference Range Interpretation Comments Fibrinogen (test code = 1955782759) 196 mg/dL 167-453 Lab Interpretation (test code = Normal 38292-0) [facility] 06:45:07 Test Item Value Reference Range Interpretation Comments Fibrinogen (test code = 5163661482) 196 mg/dL 167-453 Lab Interpretation (test code = Normal 76046-6) [facility] (in units)~2021-10-08 06:44:36 Test Item Value Reference Range Interpretation Comments Unit Blood Type (test A Pos code = 4410) ISBT Blood Type Code (test code = 286553) Unit Number (test code [id number] = 4411) Blood Expiration Date & Time (test code = 516970) Status Information Issued (test code = 4412) Product Identification Platelets (test code = 4413) Product Code (test X1301QM4 Performed at [facility] [[email or web address] code = 4414) Laboratory Services - [facility] Blood [address] [address]Kiey Free: [phone] A No. [id number] [facility] Platelets (in units)~2021-10-08 06:44:36 Test Item Value Reference Range Interpretation Comments Unit Blood Type (test A Pos code = 4410) ISBT Blood Type Code (test code = 930042) Unit Number (test code [id number] = 4411) Blood Expiration Date & Time (test code = 543689) Status Information Issued (test code = 4412) Product Identification Platelets (test code = 4413) Product Code (test F1083OB3 Performed at [facility] [[email or web address] code = 4414) Laboratory Services - [facility] Blood [address] [address]Ibbk Free: [phone] A No. [id number] [facility] Platelets (in units)~2021-10-08 06:44:36 Test Item Value Reference Range Interpretation Comments Unit Blood Type (test A Pos code = 4410) ISBT Blood Type Code (test code = 987123) Unit Number (test code [id number] = 4411) Blood Expiration Date & Time (test code = 733648) Status Information Issued (test code = 4412) Product Identification Platelets (test code = 4413) Product Code (test [id number] Performed at [facility] [[email or web address] code = 4414) Laboratory Services - [facility] Blood [address] [place], [place] [address]No[place] [address]Yeci Free: [phone] A No. [id number] [facility] [id number] 06:44:01 Test Item Value Reference Range Interpretation Comments APTT Patient (test code = See_Comment [ Automated message] 3173-2) The system [employer] generated this result transmitted ref erence range: 26 - 36 Seconds. The re ference range was not u sed to interpret this result as normal/abnor mal. Lab Interpretation (test Normal code = 99937-4) [facility] Time / [id number] 06:44:01 Test Item Value Reference Range Interpretation Comments PROTIME PATIENT (test See_Comment H [Auto mated message] code = 5964-2) The system [employer] generated this result transmitted ref erence range: 10.1 - 1 2.6 Seconds. The reference range was not used to int erpret this result as normal/abnormal . INR (test code = 6301-6) Nor mal INR <1.1; Warfarin Therap eutic range 2.0 to 3. 0 or 2.5 to 3.5, dep ending upon the indica tions. Lab Interpretation (test Abnormal code = 77983-7) [facility] [id number] 06:44:01 Test Item Value Reference Range Interpretation Comments APTT Patient (test code = See_Comment [ Automated message] 3173-2) The system [employer] generated this result transmitted ref erence range: 26 - 36 Seconds. The re ference range was not u sed to interpret this result as normal/abnor mal. Lab Interpretation (test Normal code = 83470-0) [facility] Time / [id number] 06:44:01 Test Item Value Reference Range Interpretation Comments PROTIME PATIENT (test See_Comment H [Auto mated message] code = 5964-2) The system [employer] generated this result transmitted ref erence range: 10.1 - 1 2.6 Seconds. The reference range was not used to int erpret this result as normal/abnormal . INR (test code = 6301-6) Nor mal INR <1.1; Warfarin Therap eutic range 2.0 to 3. 0 or 2.5 to 3.5, dep ending upon the indica tions. Lab Interpretation (test Abnormal code = 52149-0) [facility] [id number] 06:44:01 Test Item Value Reference Range Interpretation Comments APTT Patient (test code = See_Comment [ Automated message] 3173-2) The system [facility] generated this result transmitted ref erence range: 26 - 36 Seconds. The re ference range was not u sed to interpret this result as normal/abnor mal. Lab Interpretation (test Normal code = 19406-4) [facility] Time / [id number] 06:44:01 Test Item Value Reference Range Interpretation Comments PROTIME PATIENT (test See_Comment H [Auto mated message] code = 5964-2) The system [facility] generated this result transmitted ref erence range: 10.1 - 1 2.6 Seconds. The reference range was not used to int erpret this result as normal/abnormal . INR (test code = 6301-6) Nor mal INR <1.1; Warfarin Therap eutic range 2.0 to 3. 0 or 2.5 to 3.5, dep ending upon the indica tions. Lab Interpretation (test Abnormal code = 84914-5) [facility] WITH [id number] 06:33:16 Test Item Value Reference Range Interpretation Comments WBC (test code = See_Comment H [Automated 5590-2) message] The system which generated this result transmit ramana reference range : 4.30 - 11.10 10*3/?L. The reference range was not used to interpret this result as normal/abnormal . RBC (test code = See_Comment L [Automated 399-8) message] The system which generated this result [...] (test code = 51.9 fL 39.0-49.9 H 33762-9) RDW-CV (test code = 16.2 % 12.0-15.5 H 788-0) PLT (test code = See_Comment [Automated 777-3) message] The system which generated this result transmit ramana reference range : 166 - 358 10*3/ ?L. The reference range was not u sed to interpret th is result as normal/abnormal . MPV (test code = 11.3 fL 9.5-12.9 27876-0) NRBC/100 WBC (test See_Comment [Automat ed code = 9874529676) message] The system which generated this result transmit ramana reference range : 0.0 - 10.0 /100 WBCs. The reference range was not used to interpret this result as normal/abnormal . NRBC x10^3 (test code <0.01 See_Comment [Auto mated = 2005417002) message] The system which generated this result transmit ramana reference range : 10*3/?L. The reference range was not used to interpret this result as normal/abnormal . GRAN MAT (NEUT) % 86.0 % (test code = 770-8) IMM GRAN % (test code 0.80 % = 4208169859) LYMPH % (test code = 3.8 % 736-9) MONO % (test code = 9.3 % 5905-5) EOS % (test code = 0.0 % 713-8) BASO % (test code = 0.1 % 706-2) GRAN MAT x10^3(ANC) 11.38 10*3/uL 1.88-7.09 H (test code = 1843248048) IMM GRAN x10^3 (test 0.10 10*3/uL 0.00-0.06 H code = 9079027862) LYMPH x10^3 (test code 0.50 10*3/uL 1.32-3.29 L = 731-0) MONO x10^3 (test code 1.23 10*3/uL 0.33-0.92 H = 742-7) EOS x10^3 (test code = <0.03 0.03-0.39 L 711-2) BASO x10^3 (test code <0.03 0.01-0.07 = 704-7) Lab Interpretation Abnormal (test code = 77204-3) [facility] WITH [id number] 06:33:16 Test Item Value Reference Range Interpretation [...] (test code = 51.9 fL 39.0-49.9 H 97197-2) RDW-CV (test code = 16.2 % 12.0-15.5 H 788-0) PLT (test code = See_Comment [Automated 777-3) message] The system which generated this result transmit ramana reference range : 166 - 358 10*3/ ?L. The reference range was not u sed to interpret th is result as normal/abnormal . MPV (test code = 11.3 fL 9.5-12.9 54927-5) NRBC/100 WBC (test See_Comment [Automat ed code = 0846496925) message] The system which generated this result transmit ramana reference range : 0.0 - 10.0 /100 WBCs. The reference range was not used to interpret this result as normal/abnormal . NRBC x10^3 (test code <0.01 See_Comment [Auto mated = 5118337097) message] The system which generated this result transmit ramana reference range : 10*3/?L. The reference range was not used to interpret this result as normal/abnormal . GRAN MAT (NEUT) % 86.0 % (test code = 770-8) IMM GRAN % (test code 0.80 % = 2408253002) LYMPH % (test code = 3.8 % 736-9) MONO % (test code = 9.3 % 5905-5) EOS % (test code = 0.0 % 713-8) BASO % (test code = 0.1 % 706-2) GRAN MAT x10^3(ANC) 11.38 10*3/uL 1.88-7.09 H (test code = 7438321776) IMM GRAN x10^3 (test 0.10 10*3/uL 0.00-0.06 H code = 0325267416) LYMPH x10^3 (test code 0.50 10*3/uL 1.32-3.29 L = 731-0) MONO x10^3 (test code 1.23 10*3/uL 0.33-0.92 H = 742-7) EOS x10^3 (test code = <0.03 0.03-0.39 L 711-2) BASO x10^3 (test code <0.03 0.01-0.07 = 704-7) Lab Interpretation Abnormal (test code = 23842-2) [facility] WITH [id number] 06:33:16 Test Item Value Reference Range Interpretation [...] (test code = 51.9 fL 39.0-49.9 H 66301-9) RDW-CV (test code = 16.2 % 12.0-15.5 H 788-0) PLT (test code = See_Comment [Automated 777-3) message] The system which generated this result transmit ramana reference range : 166 - 358 10*3/ ?L. The reference range was not u sed to interpret th is result as normal/abnormal . MPV (test code = 11.3 fL 9.5-12.9 09347-4) NRBC/100 WBC (test See_Comment [Automat ed code = 8335759284) message] The system which generated this result transmit ramana reference range : 0.0 - 10.0 /100 WBCs. The reference range was not used to interpret this result as normal/abnormal . NRBC x10^3 (test code <0.01 See_Comment [Auto mated = 1615822562) message] The system which generated this result transmit ramana reference range : 10*3/?L. The reference range was not used to interpret this result as normal/abnormal . GRAN MAT (NEUT) % 86.0 % (test code = 770-8) IMM GRAN % (test code 0.80 % = 8155204915) LYMPH % (test code = 3.8 % 736-9) MONO % (test code = 9.3 % 5905-5) EOS % (test code = 0.0 % 713-8) BASO % (test code = 0.1 % 706-2) GRAN MAT x10^3(ANC) 11.38 10*3/uL 1.88-7.09 H (test code = 3241427868) IMM GRAN x10^3 (test 0.10 10*3/uL 0.00-0.06 H code = 9620922599) LYMPH x10^3 (test code 0.50 10*3/uL 1.32-3.29 L = 731-0) MONO x10^3 (test code 1.23 10*3/uL 0.33-0.92 H = 742-7) EOS x10^3 (test code = <0.03 0.03-0.39 L 711-2) BASO x10^3 (test code <0.03 0.01-0.07 = 704-7) Lab Interpretation Abnormal (test code = 68222-1) [facility] + LACTIC [id number] 06:25:43 Test Item Value Reference Range Interpretation Comments PH (test code = 7.32-7.42 L 3361053103) PCO2 SHAY (test code = See_Comment [Auto mated 3200977635) message] The sy stem which generated this result transmitted reference range : 41 - 51 mmHg. The reference range was not used to interpret this result as normal/abnormal . PO2 SHAY (test code = See_Comment L [Autom ated 7358635244) message] The sy stem which generated this result transmitted reference range : 25 - 40 mmHg. The reference range was not used to interpret this result as normal/abnormal . HCO3 SHAY (test code = See_Comment L [Auto mated 1022722163) message] The sy stem which generated this result transmitted reference range : 24 - 28 mEq/L. The reference range was not used to interpret this result as normal/abnormal . AC VBE(BEAKER) (test mEq/L code = 6454857367) THB SHAY (test code = 6.1 g/dL 12.0-16.0 LL 6280693732) %O2HB SHAY (test code = 26.6 % 52.0-63.0 L 1511856545) %COHB SHAY (test code = 1.0 % 0.0-1.5 5499567333) %METHB SHAY (test code = 0.9 % 0.4-1.5 5944255666) VOL%O2 SHAY (test code = 2.3 % 6.0-12.0 L 9869884050) NA (test code = 130 mmol/L 135-145 L 8083739797) K+ (test code = 4.3 mmol/L 3.5-5.0 5217386294) AC CA IONZ (test code = 4.60 mg/dL 4.50-5.30 2988446202) GLUCOSE (test code = 239 mg/dL 70-110 H 4978112430) LACTIC ACID (test code 3.16 mmol/L 0.50-2.20 H = 2031613349) Lab Interpretation Abnormal (test code = 98716-7) [facility] LACTIC [id number] 06:25:43 Test Item Value Reference Range Interpretation Comments PH (test code = 7.32-7.42 L 0495755157) PCO2 SHAY (test code = See_Comment [Auto mated 3459189418) message] The sy stem which generated this result transmitted reference range : 41 - 51 mmHg. The reference range was not used to interpret this result as normal/abnormal . PO2 SHAY (test code = See_Comment L [Autom ated 6241681114) message] The sy stem which generated this result transmitted reference range : 25 - 40 mmHg. The reference range was not used to interpret this result as normal/abnormal . HCO3 SHAY (test code = See_Comment L [Auto mated 9516734977) message] The sy stem which generated this result transmitted reference range : 24 - 28 mEq/L. The reference range was not used to interpret this result as normal/abnormal . AC VBE(BEAKER) (test mEq/L code = 3134243085) THB SHAY (test code = 6.1 g/dL 12.0-16.0 LL 1131261057) %O2HB SHAY (test code = 26.6 % 52.0-63.0 L 9580784802) %COHB SHAY (test code = 1.0 % 0.0-1.5 3769045501) %METHB SHAY (test code = 0.9 % 0.4-1.5 3129519170) VOL%O2 SHAY (test code = 2.3 % 6.0-12.0 L 7064847423) NA (test code = 130 mmol/L 135-145 L 9721911859) K+ (test code = 4.3 mmol/L 3.5-5.0 4708988497) AC CA IONZ (test code = 4.60 mg/dL 4.50-5.30 1859597514) GLUCOSE (test code = 239 mg/dL 70-110 H 2577549477) LACTIC ACID (test code 3.16 mmol/L 0.50-2.20 H = 3147519255) Lab Interpretation Abnormal (test code = 17815-3) [facility]IC [id number] 06:25:43 Test Item Value Reference Range Interpretation Comments PH (test code = 7.32-7.42 L 3288563865) PCO2 SHAY (test code = See_Comment [Auto mated 0011602955) message] The sy stem which generated this result transmitted reference range : 41 - 51 mmHg. The reference range was not used to interpret this result as normal/abnormal . PO2 SHAY (test code = See_Comment L [Autom ated 0113533143) message] The sy stem which generated this result transmitted reference range : 25 - 40 mmHg. The reference range was not used to interpret this result as normal/abnormal . HCO3 SHAY (test code = See_Comment L [Auto mated 8723650008) message] The sy stem which generated this result transmitted reference range : 24 - 28 mEq/L. The reference range was not used to interpret this result as normal/abnormal . AC VBE(BEAKER) (test mEq/L code = 8991264256) THB SHAY (test code = 6.1 g/dL 12.0-16.0 LL 3204098044) %O2HB SHAY (test code = 26.6 % 52.0-63.0 L 1091236141) %COHB SHAY (test code = 1.0 % 0.0-1.5 8614673206) %METHB SHAY (test code = 0.9 % 0.4-1.5 3625613295) VOL%O2 SHAY (test code = 2.3 % 6.0-12.0 L 2424551383) NA (test code = 130 mmol/L 135-145 L 4745320085) K+ (test code = 4.3 mmol/L 3.5-5.0 8042084348) AC CA IONZ (test code = 4.60 mg/dL 4.50-5.30 2962007369) GLUCOSE (test code = 239 mg/dL 70-110 H 8149956874) LACTIC ACID (test code 3.16 mmol/L 0.50-2.20 H = 6016340107) Lab Interpretation Abnormal (test code = 02115-4) [facility] METABOLIC PANEL (NA, K, CL, CO2, GLUCOSE, BUN, CREATININE, CA)2021-10-08 05:38:11 Test Item Value Reference Range Interpretation Comments NA (test code = 132 mmol/L 135-145 L 3130045411) K (test code = 4.7 mmol/L 3.5-5.0 6709235110) CL (test code = 107 mmol/L 98-108 3417534764) CO2 TOTAL (test code = 20 mmol/L 23-31 L 5439082113) AGAP (test code = 2-16 9304660624) BUN (test code = 8 mg/dL 7-23 8884161637) GLUCOSE (test code = 322 mg/dL 70-110 H 5191979759) CREATININE (test code = 0.65 mg/dL 0.50-1.04 0435818331) CALCIUM (test code = 7.7 mg/dL 8.6-10.6 L 8040632696) eGFR (test code = mL/min/1.73m2 6971997414) MICKY (test code = MICKY) Association of [...] tests). Lab Interpretation Abnormal (test code = 23030-5) [facility] 05:38:11 Test Item Value Reference Range Interpretation Comments MAGNESIUM (test code = 9821416994) 1.6 mg/dL 1.7-2.4 L Lab Interpretation (test code = Abnormal 57843-0) [facility] (NA, K, CL, CO2, GLUCOSE, BUN, CREATININE, CA)2021-10-08 05:38:11 Test Item Value Reference Range Interpretation Comments NA (test code = 132 mmol/L 135-145 L 0683758915) K (test code = 4.7 mmol/L 3.5-5.0 9470547655) CL (test code = 107 mmol/L 98-108 3889336424) CO2 TOTAL (test code = 20 mmol/L 23-31 L 4965429330) AGAP (test code = 2-16 8602627544) BUN (test code = 8 mg/dL 7-23 6837880713) GLUCOSE (test code = 322 mg/dL 70-110 H 5603008605) CREATININE (test code = 0.65 mg/dL 0.50-1.04 3930813628) CALCIUM (test code = 7.7 mg/dL 8.6-10.6 L 7506030847) eGFR (test code = mL/min/1.73m2 1261955789) MICKY (test code = MICKY) Association of [...] tests). Lab Interpretation Abnormal (test code = 91726-4) [facility] 05:38:11 Test Item Value Reference Range Interpretation Comments MAGNESIUM (test code = 7226321010) 1.6 mg/dL 1.7-2.4 L Lab Interpretation (test code = Abnormal 08277-5) [facility] (NA, K, CL, CO2, GLUCOSE, BUN, CREATININE, CA)2021-10-08 05:38:11 Test Item Value Reference Range Interpretation Comments NA (test code = 132 mmol/L 135-145 L 3207076004) K (test code = 4.7 mmol/L 3.5-5.0 9435969781) CL (test code = 107 mmol/L 98-108 9470208439) CO2 TOTAL (test code = 20 mmol/L 23-31 L 4542269596) AGAP (test code = 2-16 0798854946) BUN (test code = 8 mg/dL 7-23 9645434933) GLUCOSE (test code = 322 mg/dL 70-110 H 3881552763) CREATININE (test code = 0.65 mg/dL 0.50-1.04 6499474005) CALCIUM (test code = 7.7 mg/dL 8.6-10.6 L 9235230700) eGFR (test code = mL/min/1.73m2 2966296018) MICKY (test code = MICKY) Association of [...] tests). Lab Interpretation Abnormal (test code = 06316-1) [facility] 05:38:11 Test Item Value Reference Range Interpretation Comments MAGNESIUM (test code = 0196929615) 1.6 mg/dL 1.7-2.4 L Lab Interpretation (test code = Abnormal 02126-6) [facility] WITH [id number] 04:49:24 Test Item Value Reference Range Interpretation [...] (test code = 59.6 fL 39.0-49.9 H 35686-4) RDW-CV (test code = 17.4 % 12.0-15.5 H 788-0) PLT (test code = See_Comment [Automated 777-3) message] The sy stem which generated this result transmitted reference range : 166 - 358 10*3/ ?L. The reference r susan was not used to interpret this result as normal/abnormal . MPV (test code = 11.5 fL 9.5-12.9 29455-2) NRBC/100 WBC (test See_Comment [Automat ed code = 5625639705) message] The system which generated this result transmitted reference range : 0.0 - 10.0 /100 WBCs. The refer ence range was not u sed to interpret th is result as normal/abnormal . NRBC x10^3 (test code <0.01 See_Comment [Auto mated = 4986126623) message] The s ystem which generated this result transmitted reference range : 10*3/?L. The reference range was not used to interpret this result as normal/abnormal . GRAN MAT (NEUT) % 90.2 % (test code = 770-8) IMM GRAN % (test code 0.60 % = 9576855889) LYMPH % (test code = 3.9 % 736-9) MONO % (test code = 5.2 % 5905-5) EOS % (test code = 0.0 % 713-8) BASO % (test code = 0.1 % 706-2) GRAN MAT x10^3(ANC) 8.42 10*3/uL 1.88-7.09 H (test code = 6026497454) IMM GRAN x10^3 (test 0.06 10*3/uL 0.00-0.06 code = 0130288715) LYMPH x10^3 (test code 0.36 10*3/uL 1.32-3.29 L = 731-0) MONO x10^3 (test code 0.49 10*3/uL 0.33-0.92 = 742-7) EOS x10^3 (test code = <0.03 0.03-0.39 L 711-2) BASO x10^3 (test code <0.03 0.01-0.07 = 704-7) Lab Interpretation Abnormal (test code = 36206-4) [facility] WITH [id number] 04:49:24 Test Item Value Reference Range Interpretation [...] (test code = 59.6 fL 39.0-49.9 H 04664-6) RDW-CV (test code = 17.4 % 12.0-15.5 H 788-0) PLT (test code = See_Comment [Automated 777-3) message] The sy stem which generated this result transmitted reference range : 166 - 358 10*3/ ?L. The reference r susan was not used to interpret this result as normal/abnormal . MPV (test code = 11.5 fL 9.5-12.9 56255-6) NRBC/100 WBC (test See_Comment [Automat ed code = 3176955309) message] The system which generated this result transmitted reference range : 0.0 - 10.0 /100 WBCs. The refer ence range was not u sed to interpret th is result as normal/abnormal . NRBC x10^3 (test code <0.01 See_Comment [Auto mated = 3765104020) message] The s ystem which generated this result transmitted reference range : 10*3/?L. The reference range was not used to interpret this result as normal/abnormal . GRAN MAT (NEUT) % 90.2 % (test code = 770-8) IMM GRAN % (test code 0.60 % = 3010419165) LYMPH % (test code = 3.9 % 736-9) MONO % (test code = 5.2 % 5905-5) EOS % (test code = 0.0 % 713-8) BASO % (test code = 0.1 % 706-2) GRAN MAT x10^3(ANC) 8.42 10*3/uL 1.88-7.09 H (test code = 8216530285) IMM GRAN x10^3 (test 0.06 10*3/uL 0.00-0.06 code = 8290088230) LYMPH x10^3 (test code 0.36 10*3/uL 1.32-3.29 L = 731-0) MONO x10^3 (test code 0.49 10*3/uL 0.33-0.92 = 742-7) EOS x10^3 (test code = <0.03 0.03-0.39 L 711-2) BASO x10^3 (test code <0.03 0.01-0.07 = 704-7) Lab Interpretation Abnormal (test code = 35971-1) [facility] WITH [id number] 04:49:24 Test Item Value Reference Range Interpretation [...] (test code = 59.6 fL 39.0-49.9 H 98999-4) RDW-CV (test code = 17.4 % 12.0-15.5 H 788-0) PLT (test code = See_Comment [Automated 777-3) message] The sy stem which generated this result transmitted reference range : 166 - 358 10*3/ ?L. The reference r susan was not used to interpret this result as normal/abnormal . MPV (test code = 11.5 fL 9.5-12.9 48690-2) NRBC/100 WBC (test See_Comment [Automat ed code = 9781780419) message] The system which generated this result transmitted reference range : 0.0 - 10.0 /100 WBCs. The refer ence range was not u sed to interpret th is result as normal/abnormal . NRBC x10^3 (test code <0.01 See_Comment [Auto mated = 6172166453) message] The s ystem which generated this result transmitted reference range : 10*3/?L. The reference range was not used to interpret this result as normal/abnormal . GRAN MAT (NEUT) % 90.2 % (test code = 770-8) IMM GRAN % (test code 0.60 % = 9278164284) LYMPH % (test code = 3.9 % 736-9) MONO % (test code = 5.2 % 5905-5) EOS % (test code = 0.0 % 713-8) BASO % (test code = 0.1 % 706-2) GRAN MAT x10^3(ANC) 8.42 10*3/uL 1.88-7.09 H (test code = 0537231194) IMM GRAN x10^3 (test 0.06 10*3/uL 0.00-0.06 code = 8697647934) LYMPH x10^3 (test code 0.36 10*3/uL 1.32-3.29 L = 731-0) MONO x10^3 (test code 0.49 10*3/uL 0.33-0.92 = 742-7) EOS x10^3 (test code = <0.03 0.03-0.39 L 711-2) BASO x10^3 (test code <0.03 0.01-0.07 = 704-7) Lab Interpretation Abnormal (test code = 27038-8) [facility] 1 Units 2021-10-08 04:27:22 Test Item Value Reference Range Interpretation Comments Cross Match Result Compatible (test code = 4409) ISBT Blood Type Code (test code = 637739) Unit Blood Type (test A Pos code = 4410) Unit Number (test [id number] code = 4411) Blood Expiration Date & Time (test code = 997277) Status Information Issued (test code = 4412) Product Red Blood Cells Identification (test code = 4413) Product Code (test D8541P09 Performed at [facility] [[email or web address] code = 4414) Laboratory Services - [facility] Blood [address] [address]Qsdf Free: [phone] A No. [id number] [facility] Packed RBC (in units), 1 Units 2021-10-08 04:27:22 Test Item Value Reference Range Interpretation Comments Cross Match Result Compatible (test code = 4409) ISBT Blood Type Code (test code = 037314) Unit Blood Type (test A Pos code = 4410) Unit Number (test [id number] code = 4411) Blood Expiration Date & Time (test code = 781131) Status Information Issued (test code = 4412) Product Red Blood Cells Identification (test code = 4413) Product Code (test L3351P96 Performed at [facility] [[email or web address] code = 4414) Laboratory Services - [facility] Blood [address] [place] [address]Icsi Free: [phone] A No. [id number] [facility] Packed RBC (in units), 1 Units 2021-10-08 04:27:22 Test Item Value Reference Range Interpretation Comments Cross Match Result Compatible (test code = 4409) ISBT Blood Type Code (test code = 927538) Unit Blood Type (test A Pos code = 4410) Unit Number (test [id number] code = 4411) Blood Expiration Date & Time (test code = 587978) Status Information Issued (test code = 4412) Product Red Blood Cells Identification (test code = 4413) Product Code (test J4150H42 Performed at [facility] [[email or web address] code = 4414) Laboratory Services - [facility] Blood [address] [place] [address]Pbdy Free: [phone] A No. [id number] [facility] GLUCOSE (AUTOMATED)2021-10-08 03:52:59 Test Item Value Reference Range Interpretation Comments POCT GLU (test code = 4911122121) 261 mg/dL 70-110 H Lab Interpretation (test code = Abnormal 87063-7) [facility] GLUCOSE (AUTOMATED)2021-10-08 03:52:59 Test Item Value Reference Range Interpretation Comments POCT GLU (test code = 2958248136) 261 mg/dL 70-110 H Lab Interpretation (test code = Abnormal 26494-5) [facility] GLUCOSE (AUTOMATED)2021-10-08 03:52:59 Test Item Value Reference Range Interpretation Comments POCT GLU (test code = 2055411276) 261 mg/dL 70-110 H Lab Interpretation (test code = Abnormal 65217-7) [facility] WITH [id number] 00:07:18 Test Item Value Reference Range Interpretation [...] (test code = 60.2 fL 39.0-49.9 H 75005-2) RDW-CV (test code = 17.7 % 12.0-15.5 H 788-0) PLT (test code = See_Comment [Automated 777-3) message] The sy stem which generated this result transmitted reference range : 166 - 358 10*3/ ?L. The reference r susan was not used to interpret this result as normal/abnormal . MPV (test code = 11.6 fL 9.5-12.9 18794-7) NRBC/100 WBC (test See_Comment [Automat ed code = 1614389647) message] The system which generated this result transmitted reference range : 0.0 - 10.0 /100 WBCs. The refer ence range was not u sed to interpret th is result as normal/abnormal . NRBC x10^3 (test code <0.01 See_Comment [Auto mated = 5561799588) message] The s ystem which generated this result transmitted reference range : 10*3/?L. The reference range was not used to interpret this result as normal/abnormal . GRAN MAT (NEUT) % 93.5 % (test code = 770-8) IMM GRAN % (test code 0.80 % = 1263629745) LYMPH % (test code = 3.4 % 736-9) MONO % (test code = 2.2 % 5905-5) EOS % (test code = 0.0 % 713-8) BASO % (test code = 0.1 % 706-2) GRAN MAT x10^3(ANC) 9.81 10*3/uL 1.88-7.09 H (test code = 9363542437) IMM GRAN x10^3 (test 0.08 10*3/uL 0.00-0.06 H code = 4665413718) LYMPH x10^3 (test code 0.36 10*3/uL 1.32-3.29 L = 731-0) MONO x10^3 (test code 0.23 10*3/uL 0.33-0.92 L = 742-7) EOS x10^3 (test code = <0.03 0.03-0.39 L 711-2) BASO x10^3 (test code <0.03 0.01-0.07 = 704-7) Lab Interpretation Abnormal (test code = 51707-7) [facility] WITH [id number] 00:07:18 Test Item Value Reference Range Interpretation Comments WBC (test code = See_Comment [Automated 0490-2) message] The sy stem which generated this result transmitted reference range : 4.30 - 11.10 10*3/?L. The reference range was not used to interpret this result as normal/abnormal . RBC (test code = See_Comment L [Automated 759-8) message] The sy stem which generated this [...] (test code = 60.2 fL 39.0-49.9 H 75870-4) RDW-CV (test code = 17.7 % 12.0-15.5 H 788-0) PLT (test code = See_Comment [Automated 777-3) message] The sy stem which generated this result transmitted reference range : 166 - 358 10*3/ ?L. The reference r susan was not used to interpret this result as normal/abnormal . MPV (test code = 11.6 fL 9.5-12.9 96071-6) NRBC/100 WBC (test See_Comment [Automat ed code = 3792841044) message] The system which generated this result transmitted reference range : 0.0 - 10.0 /100 WBCs. The refer ence range was not u sed to interpret th is result as normal/abnormal . NRBC x10^3 (test code <0.01 See_Comment [Auto mated = 5020540180) message] The s ystem which generated this result transmitted reference range : 10*3/?L. The reference range was not used to interpret this result as normal/abnormal . GRAN MAT (NEUT) % 93.5 % (test code = 770-8) IMM GRAN % (test code 0.80 % = 7946793872) LYMPH % (test code = 3.4 % 736-9) MONO % (test code = 2.2 % 5905-5) EOS % (test code = 0.0 % 713-8) BASO % (test code = 0.1 % 706-2) GRAN MAT x10^3(ANC) 9.81 10*3/uL 1.88-7.09 H (test code = 8677301993) IMM GRAN x10^3 (test 0.08 10*3/uL 0.00-0.06 H code = 0881157497) LYMPH x10^3 (test code 0.36 10*3/uL 1.32-3.29 L = 731-0) MONO x10^3 (test code 0.23 10*3/uL 0.33-0.92 L = 742-7) EOS x10^3 (test code = <0.03 0.03-0.39 L 711-2) BASO x10^3 (test code <0.03 0.01-0.07 = 704-7) Lab Interpretation Abnormal (test code = 52425-5) [facility] WITH [id number] 00:07:18 Test Item Value Reference Range Interpretation [...] (test code = 60.2 fL 39.0-49.9 H 60909-4) RDW-CV (test code = 17.7 % 12.0-15.5 H 788-0) PLT (test code = See_Comment [Automated 777-3) message] The sy stem which generated this result transmitted reference range : 166 - 358 10*3/ ?L. The reference r susan was not used to interpret this result as normal/abnormal . MPV (test code = 11.6 fL 9.5-12.9 08141-6) NRBC/100 WBC (test See_Comment [Automat ed code = 8592263112) message] The system which generated this result transmitted reference range : 0.0 - 10.0 /100 WBCs. The refer ence range was not u sed to interpret th is result as normal/abnormal . NRBC x10^3 (test code <0.01 See_Comment [Auto mated = 2394764578) message] The s ystem which generated this result transmitted reference range : 10*3/?L. The reference range was not used to interpret this result as normal/abnormal . GRAN MAT (NEUT) % 93.5 % (test code = 770-8) IMM GRAN % (test code 0.80 % = 0003569914) LYMPH % (test code = 3.4 % 736-9) MONO % (test code = 2.2 % 5905-5) EOS % (test code = 0.0 % 713-8) BASO % (test code = 0.1 % 706-2) GRAN MAT x10^3(ANC) 9.81 10*3/uL 1.88-7.09 H (test code = 4847714713) IMM GRAN x10^3 (test 0.08 10*3/uL 0.00-0.06 H code = 6861653504) LYMPH x10^3 (test code 0.36 10*3/uL 1.32-3.29 L = 731-0) MONO x10^3 (test code 0.23 10*3/uL 0.33-0.92 L = 742-7) EOS x10^3 (test code = <0.03 0.03-0.39 L 711-2) BASO x10^3 (test code <0.03 0.01-0.07 = 704-7) Lab Interpretation Abnormal (test code = 85256-3) [facility] (in units), 2 Units 2021-10-07 21:08:55 Test Item Value Reference Range Interpretation Comments Cross Match Result Compatible (test code = 4409) ISBT Blood Type Code (test code = 003789) Unit Blood Type (test A Pos code = 4410) Unit Number (test [id number] code = 4411) Blood Expiration Date & Time (test code = 881093) Status Information Issued (test code = 4412) Product Red Blood Cells Identification (test code = 4413) Product Code (test V8916M23 Performed at [facility] [[email or web address] code = 4414) Laboratory Services [facility] Blood [address] [address]Wahm Free: [phone] A No. [id number] [facility] ([facility]), 2 Units 2021-10-07 21:08:55 Test Item Value Reference Range Interpretation Comments Cross Match Result Compatible (test code = 4409) ISBT Blood Type Code (test code = 686520) Unit Blood Type (test A Pos code = 4410) Unit Number (test [id number] code = 4411) Blood Expiration Date & Time (test code = 367912) Status Information Issued (test code = 4412) Product Red Blood Cells Identification (test code = 4413) Product Code (test D5149Y35 Performed at [facility] [[email or web address] code = 4414) Laboratory Services - [facility] Blood [address] [address]Ilie Free: [phone] A No. [id number] [facility] Packed RBC (in units), 2 Units 2021-10-07 21:08:55 Test Item Value Reference Range Interpretation Comments Cross Match Result Compatible (test code = 4409) ISBT Blood Type Code (test code = 150443) Unit Blood Type (test A Pos code = 4410) Unit Number (test [id number] code = 4411) Blood Expiration Date & Time (test code = 986065) Status Information Issued (test code = 4412) Product Red Blood Cells Identification (test code = 4413) Product Code (test W8415G83 Performed at [facility] [[email or web address] code = 4414) Laboratory Services [facility] Blood [address] [address]Uums Free: [phone] A No. [id number] [facility]OLIC PAN[facility] ([id number])2021-10-07 12:06:32 Test Item Value Reference Range Interpretation Comments NA (test code = 139 mmol/L 135-145 2438016979) K (test code = 4.1 mmol/L 3.5-5.0 6915688314) CL (test code = 110 mmol/L 98-108 H 4964666680) CO2 TOTAL (test code = 24 mmol/L 23-31 9057634146) AGAP (test code = 2-16 4038149302) BUN (test code = 6 mg/dL 7-23 L 8669291142) GLUCOSE (test code = 95 mg/dL 70-110 2586775211) CREATININE (test code = 0.48 mg/dL 0.50-1.04 L 4464018875) TOTAL BILI (test code = 0.3 mg/dL 0.1-1.0 5315823721) CALCIUM (test code = 8.2 mg/dL 8.6-10.6 L 8947659333) T PROTEIN (test code = 6.3 g/dL 6.3-8.2 7521026000) ALBUMIN (test code = 3.2 g/dL 3.5-5.0 L 0527275801) ALK PHOS (test code = 60 U/L 34-122 2080329631) ALTv (test code = 12 U/L 5-35 1742-6) AST(SGOT) (test code = 19 U/L 13-40 3649662418) eGFR (test code = mL/min/1.73m2 0501849720) MICKY (test code = MCIKY) Association of Glomerular Filtration Rate (GFR) and [...] tests). Lab Interpretation Abnormal (test code = 89159-7) [facility]. METABOLIC PANEL ([id number])2021-10-07 12:06:32 Test Item Value Reference Range Interpretation Comments NA (test code = 139 mmol/L 135-145 3542997718) K (test code = 4.1 mmol/L 3.5-5.0 0983559819) CL (test code = 110 mmol/L 98-108 H 8688286860) CO2 TOTAL (test code = 24 mmol/L 23-31 4300236467) AGAP (test code = 2-16 0274773721) BUN (test code = 6 mg/dL 7-23 L 6447480706) GLUCOSE (test code = 95 mg/dL 70-110 1531022292) CREATININE (test code = 0.48 mg/dL 0.50-1.04 L 3442723296) TOTAL BILI (test code = 0.3 mg/dL 0.1-1.4 5223664421) CALCIUM (test code = 8.2 mg/dL 8.6-10.6 L 6202706863) T PROTEIN (test code = 6.3 g/dL 6.3-8.2 3658873150) ALBUMIN (test code = 3.2 g/dL 3.5-5.0 L 6267698881) ALK PHOS (test code = 60 U/L 34-122 6199569507) ALTv (test code = 12 U/L 5-35 1742-6) AST(SGOT) (test code = 19 U/L 13-40 0878404701) eGFR (test code = mL/min/1.73m2 6531065418) MICKY (test code = MICKY) Association of [...] tests). Lab Interpretation Abnormal (test code = 68451-5) [facility]. METABOLIC PANEL (18552)2021-10-07 12:06:32 Test Item Value Reference Range Interpretation Comments NA (test code = 139 mmol/L 135-145 2247043498) K (test code = 4.1 mmol/L 3.5-5.0 3949068368) CL (test code = 110 mmol/L 98-108 H 8973896865) CO2 TOTAL (test code = 24 mmol/L 23-31 5670333717) AGAP (test code = 2-16 0348377260) BUN (test code = 6 mg/dL 7-23 L 3217360934) GLUCOSE (test code = 95 mg/dL 70-110 1132846934) CREATININE (test code = 0.48 mg/dL 0.50-1.04 L 0887874537) TOTAL BILI (test code = 0.3 mg/dL 0.1-1.4 9486369419) CALCIUM (test code = 8.2 mg/dL 8.6-10.6 L 3958461000) T PROTEIN (test code = 6.3 g/dL 6.3-8.2 3944463478) ALBUMIN (test code = 3.2 g/dL 3.5-5.0 L 3631970795) ALK PHOS (test code = 60 U/L 34-122 6254698110) ALTv (test code = 12 U/L 5-35 1742-6) AST(SGOT) (test code = 19 U/L 13-40 0426087041) eGFR (test code = mL/min/1.73m2 0576350660) MICKY (test code = MICKY) Association of [...] tests). Lab Interpretation Abnormal (test code = 77202-3) [facility] / [id number] 00:45:45 Test Item Value Reference Range Interpretation Comments PROTIME PATIENT (test See_Comment H [Auto mated message] code = 5964-2) The system [employer] generated this result transmitted ref erence range: 10.1 - 1 2.6 Seconds. The reference range was not used to int erpret this result as normal/abnormal . INR (test code = 6301-6) Nor mal INR <1.1; Warfarin Therap eutic range 2.0 to 3. 0 or 2.5 to 3.5, dep ending upon the indica tions. Lab Interpretation (test Abnormal code = 95693-0) [facility] [id number] 00:45:45 Test Item Value Reference Range Interpretation Comments APTT Patient (test code See_Comment L [Au tomated message] = 3173-2) The system [employer] generated this result transmitted ref erence range: 26 - 36 Seconds. The reference range was not used to int erpret this result as normal/abnormal . Lab Interpretation (test Abnormal code = 72689-8) [facility] 00:45:45 Test Item Value Reference Range Interpretation Comments Fibrinogen (test code = 7988921131) 306 mg/dL 167-453 Lab Interpretation (test code = Normal 22784-8) [facility] / [id number] 00:45:45 Test Item Value Reference Range Interpretation Comments PROTIME PATIENT (test See_Comment H [Auto mated message] code = 5964-2) The system [employer] generated this result transmitted ref erence range: 10.1 - 1 2.6 Seconds. The reference range was not used to int erpret this result as normal/abnormal . INR (test code = 6301-6) Nor mal INR <1.1; Warfarin Therap eutic range 2.0 to 3. 0 or 2.5 to 3.5, dep ending upon the indica tions. Lab Interpretation (test Abnormal code = 93725-9) [facility] [id number] 00:45:45 Test Item Value Reference Range Interpretation Comments APTT Patient (test code See_Comment L [Au tomated message] = 3173-2) The system [employer] generated this result transmitted ref erence range: 26 - 36 Seconds. The reference range was not used to int erpret this result as normal/abnormal . Lab Interpretation (test Abnormal code = 95205-2) [facility] 00:45:45 Test Item Value Reference Range Interpretation Comments Fibrinogen (test code = 4379449666) 306 mg/dL 167-453 Lab Interpretation (test code = Normal 80324-3) [facility] / [id number] 00:45:45 Test Item Value Reference Range Interpretation Comments PROTIME PATIENT (test See_Comment H [Auto mated message] code = 5964-2) The system [employer] generated this result transmitted ref erence range: 10.1 - 1 2.6 Seconds. The reference range was not used to int erpret this result as normal/abnormal . INR (test code = 6301-6) Nor mal INR <1.1; Warfarin Therap eutic range 2.0 to 3. 0 or 2.5 to 3.5, dep ending upon the indica tions. Lab Interpretation (test Abnormal code = 49587-0) [facility] [id number] 00:45:45 Test Item Value Reference Range Interpretation Comments APTT Patient (test code See_Comment L [Au tomated message] = 3173-2) The system [employer] generated this result transmitted ref erence range: 26 - 36 Seconds. The reference range was not used to int erpret this result as normal/abnormal . Lab Interpretation (test Abnormal code = 55210-1) [facility] 00:45:45 Test Item Value Reference Range Interpretation Comments Fibrinogen (test code = 9352113330) 306 mg/dL 167-453 Lab Interpretation (test code = Normal 70328-7) [facility] [id number] 00:39:06 Test Item Value Reference Range Interpretation [...] (test code = 62.5 fL 39.0-49.9 H 45167-2) RDW-CV (test code = 19.2 % 12.0-15.5 H 788-0) PLT (test code = See_Comment L [Automated 777-3) message] The sy stem which generated this result transmitted reference range : 166 - 358 10*3/ ?L. The reference r susan was not used to interpret this result as normal/abnormal . MPV (test code = 10.4 fL 9.5-12.9 75916-3) NRBC/100 WBC (test See_Comment [Automat ed code = 9511972833) message] The system which generated this result transmitted reference range : 0.0 - 10.0 /100 WBCs. The refer ence range was not u sed to interpret th is result as normal/abnormal . NRBC x10^3 (test code <0.01 See_Comment [Auto mated = 2345972144) message] The s ystem which generated this result transmitted reference range : 10*3/?L. The reference range was not used to interpret this result as normal/abnormal . GRAN MAT (NEUT) % 64.9 % (test code = 770-8) IMM GRAN % (test code 0.40 % = 1875557338) LYMPH % (test code = 24.5 % 736-9) MONO % (test code = 6.8 % 5905-5) EOS % (test code = 3.0 % 713-8) BASO % (test code = 0.4 % 706-2) GRAN MAT x10^3(ANC) 3.23 10*3/uL 1.88-7.09 (test code = 0897613278) IMM GRAN x10^3 (test <0.03 0.00-0.06 code = 9755439108) LYMPH x10^3 (test code 1.22 10*3/uL 1.32-3.29 L = 731-0) MONO x10^3 (test code 0.34 10*3/uL 0.33-0.92 = 742-7) EOS x10^3 (test code = 0.15 10*3/uL 0.03-0.39 711-2) BASO x10^3 (test code <0.03 0.01-0.07 = 704-7) Lab Interpretation Abnormal (test code = 62763-3) [facility] WITH [id number] 00:39:06 Test Item Value Reference Range Interpretation [...] (test code = 62.5 fL 39.0-49.9 H 36260-7) RDW-CV (test code = 19.2 % 12.0-15.5 H 788-0) PLT (test code = See_Comment L [Automated 777-3) message] The sy stem which generated this result transmitted reference range : 166 - 358 10*3/ ?L. The reference r susan was not used to interpret this result as normal/abnormal . MPV (test code = 10.4 fL 9.5-12.9 38619-3) NRBC/100 WBC (test See_Comment [Automat ed code = 6648942913) message] The system which generated this result transmitted reference range : 0.0 - 10.0 /100 WBCs. The refer ence range was not u sed to interpret th is result as normal/abnormal . NRBC x10^3 (test code <0.01 See_Comment [Auto mated = 1813491943) message] The s ystem which generated this result transmitted reference range : 10*3/?L. The reference range was not used to interpret this result as normal/abnormal . GRAN MAT (NEUT) % 64.9 % (test code = 770-8) IMM GRAN % (test code 0.40 % = 9532157436) LYMPH % (test code = 24.5 % 736-9) MONO % (test code = 6.8 % 5905-5) EOS % (test code = 3.0 % 713-8) BASO % (test code = 0.4 % 706-2) GRAN MAT x10^3(ANC) 3.23 10*3/uL 1.88-7.09 (test code = 0971239636) IMM GRAN x10^3 (test <0.03 0.00-0.06 code = 2309917017) LYMPH x10^3 (test code 1.22 10*3/uL 1.32-3.29 L = 731-0) MONO x10^3 (test code 0.34 10*3/uL 0.33-0.92 = 742-7) EOS x10^3 (test code = 0.15 10*3/uL 0.03-0.39 711-2) BASO x10^3 (test code <0.03 0.01-0.07 = 704-7) Lab Interpretation Abnormal (test code = 42303-5) [facility] WITH [id number] 00:39:06 Test Item Value Reference Range Interpretation [...] (test code = 62.5 fL 39.0-49.9 H 68480-9) RDW-CV (test code = 19.2 % 12.0-15.5 H 788-0) PLT (test code = See_Comment L [Automated 777-3) message] The sy stem which generated this result transmitted reference range : 166 - 358 10*3/ ?L. The reference r susan was not used to interpret this result as normal/abnormal . MPV (test code = 10.4 fL 9.5-12.9 02779-1) NRBC/100 WBC (test See_Comment [Automat ed code = 2356131005) message] The system which generated this result transmitted reference range : 0.0 - 10.0 /100 WBCs. The refer ence range was not u sed to interpret th is result as normal/abnormal . NRBC x10^3 (test code <0.01 See_Comment [Auto mated = 6143848632) message] The s ystem which generated this result transmitted reference range : 10*3/?L. The reference range was not used to interpret this result as normal/abnormal . GRAN MAT (NEUT) % 64.9 % (test code = 770-8) IMM GRAN % (test code 0.40 % = [id number]) LYMPH % (test code = 24.5 % 736-9) MONO % (test code = 6.8 % 5905-5) EOS % (test code = 3.0 % 713-8) BASO % (test code = 0.4 % 706-2) GRAN MAT x10^3(ANC) 3.23 10*3/uL 1.88-7.09 (test code = [id number]) IMM GRAN x10^3 (test <0.03 0.00-0.06 code = [id number]) LYMPH x10^3 (test code 1.22 10*3/uL 1.32-3.29 L = 731-0) MONO x10^3 (test code 0.34 10*3/uL 0.33-0.92 = 742-7) EOS x10^3 (test code = 0.15 10*3/uL 0.03-0.39 711-2) BASO x10^3 (test code <0.03 0.01-0.07 = 704-7) Lab Interpretation Abnormal (test code = 99529-5) [facility] BranchType and Screen - ONCE [id number] 21:53:57 Test Item Value Reference Range Interpretation Comments ABO & RH (test code A POSITIVE Performe d at [facility] = 20) Laboratory [facility] [place] [address]Awms Free: [phone] A No. [id number] IAT (test code = Negative Performed a t [facility] 1185) Laboratory [facility] [address] [place] [address] s [id number] Free: [phone] A No. [id number] [facility] This is a pre-surgical type and screen. ONCE [id number] 21:53:57 Test Item Value Reference Range Interpretation Comments ABO & RH (test code A POSITIVE Performe d at [facility] = 20) Laboratory [facility] [place] [address] s [id number] Free: [phone] A No. [id number] IAT (test code = Negative Performed a t [facility] 1185) Laboratory [facility] Blood [address] s [address]Yjwh Free: [phone] A No. [id number] [facility] [id number] 21:53:57 Test Item Value Reference Range Interpretation Comments ABO & RH (test code A POSITIVE Performe d at [facility] = 20) Laboratory [facility] Blood [address] s [address]Dddv Free: [phone] A No. [id number] IAT (test code = Negative Performed a t [facility] 1185) Laboratory [facility] Blood [address] s [id number] Free: [phone] A No. [id number] [facility] This is a pre-surgical type and screen. ONCE [id number] 21:53:57 Test Item Value Reference Range Interpretation Comments ABO & RH (test code A POSITIVE Performe d at [facility] = 20) Laboratory [facility] Blood [address] s [id number] Free: [phone] A No. [id number] IAT (test code = Negative Performed a t [facility] 1185) Laboratory [facility] Blood [address] s [id number] Free: [phone] A No. [id number] [facility] [id number] 21:53:57 Test Item Value Reference Range Interpretation Comments ABO & RH (test code A POSITIVE Performe d at [facility] = 20) Laboratory [facility] Blood [address] s [id number] Free: [phone] A No. [id number] IAT (test code = Negative Performed a t [facility] 1185) Laboratory [facility] [address] [facility] s [id number] Free: [phone] A No. [id number] [facility] - This is a pre-surgical type and screen. ONCE [id number] 21:53:57 Test Item Value Reference Range Interpretation Comments ABO & RH (test code A POSITIVE Performe d at [email or web address] = 20) Laboratory [facility] s [address]Ybzz Free: [phone] A No. [id number] IAT (test code = Negative Performed a t [facility] [[email or web address]] 1185) Laboratory [facility] s [id number] Free: [phone] A No. [id number] [facility] [id number] 20:12:00 Test Item Value Reference Range Interpretation Comments POCT PREG (test code = 1605) Negative On board controls acceptable with C Yes Line (test code = 3574) POCT PREG LOT # (test code = 3575) POCT PREG TEST DATE (test code = 3576) [facility] [id number] 20:12:00 Test Item Value Reference Range Interpretation Comments POCT PREG (test code = 1605) Negative On board controls acceptable with C Yes Line (test code = 3574) POCT PREG LOT # (test code = 3575) POCT PREG TEST DATE (test code = 3576) [facility] [id number] 20:12:00 Test Item Value Reference Range Interpretation Comments POCT PREG (test code = 1605) Negative On board controls acceptable with C Yes Line (test code = 3574) POCT PREG LOT # (test code = 3575) POCT PREG TEST DATE (test code = 3576) [facility]AUTO [id number] 08:31:00 Test Item Value Reference Range Interpretation [...] REQUIRED (test code = PLTMR) CBC W/AUTO [id number] 13:59:00 Test Item Value Reference Range Interpretation [...] STEVE.RE AD BACK & CONFIRME D? Y.BY [id number] 05/04/21 1356 IMMATURE PLATELET 6.0 % 0.0-10.8 [...] REQUIRED (test code = PLTMR) CBC W/AUTO [id number] 00:52:00 Test Item Value Reference Range Interpretation Comments WHITE BLOOD CELL (test 6.5 K/mm3 6.5-12.3 N code = WBC) RED BLOOD CELL (test 2.45 M/mm3 3.51-4.69 L code = RBC) HEMOGLOBIN (test code = 6.4 g/dL 10.1-13.8 LL RESU LTS CALLED TO HGB) CLIFFORD VILLAGOMEZ AD BACK & CONFIRME D? YBY [id number] 05/04/21 0025 HEMATOCRIT (test code = 21.5 [...] REQUIRED (test code = PLTMR) COMPREHENSIVE METABOLIC [id number] 00:38:00 Test Item Value Reference Range Interpretation [...] units/L 46-116 N code = ALKP) PROTHROMBIN [id number] 00:35:00 Test Item Value Reference Range Interpretation Comments PROTHROMBIN TIME PATIENT (test code 13.6 secs 10.1-12.3 H = PTP) THROMBOPLASTIN TIME [id number] 00:35:00 Test Item Value Reference Range Interpretation Comments THROMBOPLASTIN TIME PARTIAL (test 30.6 secs 22-38 N code = PTT) - DUP AB/PEL/SC/[id number] 00:00:00 [facility] : 1985 Sex: F Patient Name: SEKOU CAMPBELL Unit No: [id number] EXAMS: CPT CODE: [id number] DUP AB/PEL/SC/LTD 29218 PROCEDURE INFORMATION: Exam: US Pelvis Complete (Transabdominal), [...] 5. Unremarkable uterus. Electronically Signed by Reza Alexandre MD on05/04/2021 at 0121 Reported and signed by: Reza Alexandre MD [facility] NAME: SEKOU CAMPBELL Radiology Department PHYS: DIANAPercyAdrian Chelo Ramírez MD [address] : 1985 AGE: 35 SEX: F [place] [address] LOC: Maya.ERS PHONE #: [phone] EXAM DATE: 05/04/2021 STATUS: REG ER FAX #: [phone] RAD NO: Page 1 Signed Report (CONTINUED) Patient Name: SEKOU CAMPBELL Unit No: [id number] EXAMS: CPT CODE: [id number] DUP AB/PEL/SC/LTD 83487 (Continued) CC: Chelo Ramírez MD Technologist: Griselda Streeter RDMS Probe: Trnscrbd D/ (0121) GCD.CPS Orig Print D/T: S: 05/04/2021 (0124) [facility] NAME: SEKOU CAMPBELL Radiology Department PHYS: Chelo Ramírez MD [address] : 1985 AGE: 35 SEX: F [place] [address] LOC: Maya.ERS PHONE #: [phone] EXAM DATE: 05/04/2021 STATUS: REG ER FAX #: [phone] RAD NO: Page 2 Signed Report Patient Name: SEKOU CAMPBELL Unit No: [id number] EXAMS: CPT CODE: [id number] DUP AB/PEL/SC/LTD 42179 (Continued) [facility] NAME: SEKOU CAMPEBLL Radiology Department PHYS: Chelo Ramírez MD[address] : 1985 AGE: 35 SEX: F [place] [address] LOC: Maya.ERS PHONE #: [phone] EXAM DATE: 05/04/2021 STATUS: REG ER FAX #: [phone] RAD NO: Page 3 Signed Report- US PELVIS COMPLETE 2021-05-04 00:00:00 [facility] : 1985 Sex: F Patient Name: SEKOU CAMPBELL Unit No: [id number] EXAMS: CPT CODE: [id number] US PELVIS COMPLETE 98098 PROCEDURE INFORMATION: Exam: US Pelvis Complete (Transabdominal), [...] Reported and signed by: Reza Alexandre MD [facility] NAME: SEKOU CAMPBELL Radiology Department PHYS: Chelo Ramírez MD [address] : 1985 AGE: 35 SEX: F [place] [address] LOC: F.ERS PHONE #: [phone] EXAM DATE: 05/04/2021 STATUS: REG ER FAX #: [phone] RAD NO: Page 1 Signed Report (CONTINUED) Patient Name: SEKOU CAMPBELL Unit No: [id number] EXAMS: CPT CODE: [id number] US PELVIS COMPLETE 51709 (Continued) CC: Chelo Ramírez MD Technologist: Griselda Streeter RDMS Probe: Trnscrbd D/ (0121) GCD.CPS Orig Print D/T: S: 05/04/2021 (0121) [facility] NAME: SEKOU CAMPBELL MICHAELPARTH Radiology Department PHYS: Chelo Thapa MD [address] : 1985 AGE: 35 SEX: F [place] [address] LOC: F.ERS PHONE #: [phone] EXAM DATE: 05/04/2021 STATUS: REG ER FAX #: [phone] RAD NO: Page 2 Signed Report Patient Name: SEKOU CAMPBELL Unit No: [id number] EXAMS: CPT CODE: [id number] US PELVIS COMPLETE 10735 (Continued) [facility] NAME: SEKOU CAMPBELL Radiology Department PHYS: CRISTIAN Juju Ramírez MD [address] : 1985 AGE: 35 SEX: F [place] [address] LOC: JOSSUE PHONE #: [phone] EXAM DATE: 05/04/2021 STATUS: REG ER FAX #: [phone] RAD NO: Page 3 Signed Report- US TRANSVAGINAL [id number] 00:00:00 [facility] : 1985 Sex: F Patient Name: SEKOU CAMPBELL Unit No: [id number] EXAMS: CPT CODE: [id number] US TRANSVAGINAL W/PELVIS 04240 PROCEDURE INFORMATION: Exam: US Pelvis Complete (Transabdominal), [...] and signed by: Reza Alexandre MD [facility] NAME: SEKOU CAMPBELL Radiology Department PHYS: CRISTIAN Chelo Ramírez MD [address] : 1985 AGE: 35 SEX: F [place], [place] [address] LOC: LiatERS PHONE #: [phone] EXAM DATE: 05/04/2021 STATUS: REG ER FAX #: [phone] RAD NO: Page 1 Signed Report (CONTINUED) Patient Name: SEKOU CAMPBELL Unit No: [id number] EXAMS: CPT CODE: [id number] US TRANSVAGINAL W/PELVIS 09350 (Continued) CC: Chelo Ramírez MD Technologist: Griselda Streeter, MS Probe: [id number] D/ (0121) GCD.CPS Orig Print D/T: S: 05/04/2021 (0122) [facility] NAME: SEKOU CAMPBELL Radiology Department PHYS: LASHELLJEREMY Chelo Ramírez MD [address]OB: 1985 AGE: 35 SEX: F [place] [address] LOC: F.ERS PHONE #: [phone] EXAM DATE: 05/04/2021 STATUS: REG ER FAX #: [phone] RAD NO: Page 2 Signed Report Patient Name: SEKOU CAMPBELL Unit No: [id number] EXAMS: CPT CODE: [id number] US TRANSVAGINAL W/PELVIS 01077 (Continued) [facility] NAME: SEKOU CAMPBELL Radiology Department PHYS: LASHELL Chelo Ramírez MD [address] : 1985 AGE: 35 SEX: F [place] [address] LOC: F.ERS PHONE #: [phone] EXAM DATE: 05/04/2021 STATUS: REG ER FAX #: [phone] RAD NO: Page 3 Signed Report- DUP VEIN [id number] 08:04:00 [facility] : 1985 Sex: F Patient Name: SEKOU CAMPBELL Unit No: [id number] EXAMS: CPT CODE: [id number] DUP VEIN [id number] BILATERAL LOWER EXTREMITY DUPLEX VENOUS DOPPLER ULTRASOUND, [...] CC: Magdalena Ferro Technologist: LILLI MCGOWAN RDMS, CATHIT Probe: Trnscrbd D/ (0804) [email or web address] Orig Print D/T: S: 05/04/2020 (0807) [facility] NAME: SEKOU CAMPBELL Radiology Department PHYS: Magdalena Borrego MD [address] : 1985 AGE: 34 SEX: F [place], [place] [address] LOC: ROMAIN A PHONE #: EXAM DATE: 05/04/2020 STATUS: ADM IN FAX #: [phone] RAD NO: Page 1 Signed Report Patient Name: SEKOU CAMPBELL Unit No: [id number] EXAMS: CPT CODE: [id number] DUP VEIN SAMANTHA 58512 (Continued) [facility] NAME: SEKOU CAMPBELL Radiology Department PHYS: Magdalena Bay MD [address] : 1985 AGE: 34 SEX: F [place], [place] [address] LOC: ROMAIN Saunders PHONE #: [phone] EXAM DATE: 05/04/2020 STATUS: ADM IN FAX #: [phone] RAD NO:Page 2 Signed ReportCBC W/AUTO DIFF [...] NORMAL REQUIRED (test code = PLTMR) WBC [id number] 04:57:00 Test Item Value Reference Range Interpretation [...] NORMAL A code = PLTMORPH) CBC W/AUTO [id number] 04:56:00 Test Item Value Reference Range Interpretation [...] PLT) READ JED K & CONFIRMED? Y.BY FAdrianLABCHIARA 0456Results verified by rep eat analysis IMMATURE PLATELET 8.4 % 0.0-10.8 N FRACTION (test code = IPF) MEAN PLATELET VOLUME 12.9 fl 9.1-12.7 H (test code = MPV) MANUAL DIFF REQUIRED YES (test code = MDIFF) RBC MORPHOLOGY REQUIRED NORMAL NORMAL (test code = RBCM) PLATELET MORPHOLOGY ABNORMAL NORMAL REQUIRED (test code = PLTMR) WBC [id number] 04:56:00 Test Item Value Reference Range Interpretation Comments SEGMENTED NEUTROPHILS (test code = SEG) % 56.5-79.4 LYMPHOCYTE (test code = LYMPH) % 20-40 CBC W/AUTO [id number] 04:56:00 Test Item Value Reference Range Interpretation [...] NORMAL REQUIRED (test code = PLTMR) WBC [id number] 04:56:00 Test Item Value Reference Range Interpretation Comments SEGMENTED NEUTROPHILS (test code = SEG) % 56.5-79.4 LYMPHOCYTE (test code = LYMPH) % 20-40 COMPREHENSIVE METABOLIC [id number] 04:39:00 Test Item Value Reference Range Interpretation [...] 46-116 N code = ALKP) CBC W/AUTO [id number] 19:13:00 Test Item Value Reference Range Interpretation Comments WHITE BLOOD CELL 5.9 K/mm3 6.6-12.1 L (test code = WBC) RED BLOOD CELL (test 2.60 M/mm3 3.45-5.01 L code = RBC) HEMOGLOBIN (test 6.9 g/dL 10.7-13.9 L RESULTS FERMIN IFIED BY code = HGB) REPEAT ANALYSIS RESULTS CALLED TO GIANNA VERDUGOREAD BACK & CONFIRME D? Y.BY F.[facility] 05/03. HEMATOCRIT (test 22.1 % 32.1-42.1 L [...] PLT) SUREKHA.READ BA CK & CONFIRMED? Y.BY F.LAB.[facility] 05/03 IMMATURE PLATELET 6.4 % 0.0-10.8 N [...] REQUIRED (test code PRESENT = PLTMR) LACTIC [id number] 19:05:00 Test Item Value Reference Range Interpretation Comments LACTIC ACID (test 4.5 MMOL/L 0.5-2.2 HH RESULTS CA LLED TO code = LACT) MARIBEL.READ BACK & CONFIRMED? YES. BY GlenAS04 04/17. COMPREHENSIVE METABOLIC [id number] 19:01:00 Test Item Value Reference Range Interpretation [...] 60 units/L 46-116 code = ALKP) PROTHROMBIN [id number] 19:01:00 Test Item Value Reference Range Interpretation Comments PROTHROMBIN TIME PATIENT (test code 13.3 secs 10.4-12.4 H = PTP) THROMBOPLASTIN TIME [id number] 19:01:00 Test Item Value Reference Range Interpretation Comments THROMBOPLASTIN TIME PARTIAL (test 20.6 secs 22-38 L code = PTT) [id number] 19:01:00 Test Item Value Reference Range Interpretation Comments FIBRINOGEN (test code = FIB) 141 mg/dL 309-518 L UA RFLX MICR CULT IF [id number] 12:47:00 Test Item Value Reference Range Interpretation [...] RiskForSepsis-no oth srcSpecimen Description: CLEAN CATCHUR HCG [id number] 12:47:00 Test Item Value Reference Range Interpretation [...] Description: CLEAN CATCHUA RFLX MICR CULT IF [id number] 12:36:00 Test Item Value Reference Range Interpretation [...] RiskForSepsis-no oth srcSpecimen Description: CLEAN CATCHUR HCG [id number] 12:36:00 Test Item Value Reference Range Interpretation [...] culture: RiskForSepsis-no oth srcSpecimen Description: CLEAN CATCHPROTHROMBIN [id number] 10:14:00 Test Item Value Reference Range Interpretation Comments PROTHROMBIN TIME PATIENT (test code 13.3 secs 10.4-12.4 H = PTP) THROMBOPLASTIN TIME [id number] 10:14:00 Test Item Value Reference Range Interpretation Comments THROMBOPLASTIN TIME PARTIAL (test 19.4 secs 22-38 L code = PTT) [id number] 10:14:00 Test Item Value Reference Range Interpretation Comments FIBRINOGEN (test code = FIB) 102 mg/dL 309-518 L COMPREHENSIVE METABOLIC [id number] 09:54:00 Test Item Value Reference Range Interpretation [...] units/L 46-116 N code = ALKP) HGB [id number] 06:49:00 Test Item Value Reference Range Interpretation [...]
[2023-02-13] MEDS ORDERED: HYDROCODONE/CHLORPHEN 5 ML/OSYR ONE (21:00)
--- NOTE | 2023-02-13 21:16 | EDPHYS ---
Physician Documentation [facility] Name: Bri Boyd Age: 37 yrs Sex: Female : 1985 Arrival Date: 02/13/2023 Time: 19:53 Bed 11 Private MD: ED Physician Keith Chester HPI: 02/13 20:45 This 37 yrs old Female presents to ER via Ambulatory with complaints of Flu Symptoms. cp 20:45 The patient or guardian reports cough, that is intermittent, with productive sputum, cp flu symptoms, body aches. 20:45 Onset: The symptoms/episode began/occurred yesterday. cp 20:45 Associated signs and symptoms: Pertinent positives: fever, sore throat, Pertinent cp negatives: diarrhea, vomiting. 20:45 Severity of symptoms: in the emergency department the symptoms are unchanged despite cp home interventions. 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 - Social history:: Smoking status: Patient denies any tobacco usage or history of. ROS: 20:50 Constitutional: Positive for body aches, fever, Negative for poor PO intake, cp 20:50 Eyes: Negative for injury, pain, redness, and discharge, cp 20:50 ENT: Positive for sore throat, Negative for drainage from ear(s), ear pain, difficulty swallowing, difficulty handling secretions, 20:50 Cardiovascular: Negative for chest pain, palpitations, 20:50 Respiratory: Positive for cough, with green sputum, Negative for shortness of breath, wheezing, 20:50 Abdomen/GI: Negative for abdominal pain, vomiting, diarrhea, constipation, Exam: 20:55 Constitutional: The patient appears in no acute distress, alert, awake, non-toxic, well cp developed, well nourished, 20:55 Head/Face: Normocephalic, atraumatic. cp 20:55 Eyes: Periorbital structures: appear normal, Conjunctiva: normal, no exudate, no injection, Sclera: no appreciated abnormality, Lids and lashes: appear normal, bilaterally, 20:55 ENT: External ear(s): are unremarkable, Ear canal(s): are normal, clear, TM's: dullness, bilaterally, Nose: is normal, Mouth: Lips: moist, Oral mucosa: pink and intact, moist, Posterior pharynx: Airway: no evidence of obstruction, patent, Tonsils: no enlargement, no exudate, swelling, is not appreciated, erythema, that is mild, exudate, is not appreciated, 20:55 Neck: ROM/movement: is normal, is supple, no meningismus, no nuchal rigidity, 20:55 Chest/axilla: Inspection: normal, 20:55 Cardiovascular: Rate: normal, Rhythm: regular, 20:55 Respiratory: the patient does not display signs of respiratory distress, Respirations: normal, no use of accessory muscles, no retractions, labored breathing, is not present, Breath sounds: are clear throughout, no decreased breath sounds, no stridor, no wheezing, 20:55 Abdomen/GI: Exam negative for discomfort, distension, guarding, Inspection: abdomen appears normal, 20:55 Skin: no rash present. Vital Signs: 20:00 BP 104 / 67; Pulse 88; Resp 17; Temp 99.1; Pulse Ox 100% ; Weight 70.76 kg; Pain 9/10; ap3 21:31 BP 110 / 61; Pulse 83; Resp 18; Pulse Ox 100% on R/A; me1 20:00 Pain Scale: Adult ap3 MDM: 20:06 Patient medically screened. cp 21:00 Differential diagnosis: bronchitis, flu, URI. cp 21:15 Data reviewed: vital signs, nurses notes, lab test result(s), and as a result, I will cp discharge patient. 21:15 Antibiotic administration: Not indicated, the patient has a suspected viral illness. cp Counseling: I had a detailed discussion with the patient and/or guardian regarding the historical points, exam findings, and any diagnostic results supporting the discharge/admit diagnosis, lab results, the need for outpatient follow up, a family practitioner, to return to the emergency department if symptoms worsen or persist or if there are any questions or concerns that arise at home. 02/13 20:03 Order name: Flu; Complete Time: 21:06 ap3 02/13 21:06 Interpretation: Reviewed. cp 02/13 20:03 Order name: COVID-19 SARS RT PCR; Complete Time: 21:06 ap3 02/13 21:07 Interpretation: Reviewed. cp 02/13 20:03 Order name: Strep ap3 02/13 21:05 Order name: Throat Culture EDMS Administered Medications: 20:49 Drug: Tussionex Pennkinetic ER PO Suspension 5 ml PO once Route: PO; me1 21:33 Follow up: Response: No adverse reaction me1 Disposition Summary: 02/13/23 21:15 Discharge Ordered Notes: Location: Home cp Problem: new cp Symptoms: have improved cp Condition: Stable cp Diagnosis - Influenza due to unidentified influenza virus with other respiratory manifestations cp Followup: cp - With: Private Physician - When: 2 - 3 days - Reason: Worsening of condition Discharge Instructions: - Discharge Summary Sheet cp - Influenza, Adult cp Forms: - Medication Reconciliation Form cp - Thank You Letter cp - Antibiotic Education cp - Prescription Opioid Use cp - Patient Portal Instructions cp - Leadership Thank You Letter cp Prescriptions: - Tessalon Perles 100 mg Oral capsule - take 2 capsule ORAL route every 8 hours As needed; 20 capsule; Refills: 0, cp Product Selection Permitted - Tamiflu 75 mg Oral capsule - take 1 tablet ORAL route every 12 hours for 5 days; 10 tablet; Refills: 0, cp Product Selection Permitted Addendum: 02/15/2023 10:26 I was immediately available for consultation during this patient's visit. I did not e c2 personally see the patient or guide the patient's care.. Signatures: Dispatcher [employer] [facility] Gm Lopez PA PA cp Toshia Blackburn RN RN ap3 Radha Lala RN RN me1 Keith Chester MD MD ec2 Corrections: (The following items were deleted from the chart) 02/14 19:54 19:52 Constitutional: Positive for body aches, fever, Negative for poor PO intake, cp cp
--- NOTE | 2023-02-13 21:16 | ER ---
Nurse's Notes [facility] Name: Bri Boyd Age: 37 yrs Sex: Female : 1985 Arrival Date: 02/13/2023 Time: 19:53 Bed 11 Private MD: Diagnosis: Influenza due to unidentified influenza virus with other respiratory manifestations Presentation: 02/13 20:00 Chief complaint: Patient states: she has been having flu symptoms since yesterday.. ap3 patient reports fevers and body aches, with pain she reports to be a 9/10 on the pain scale. Coronavirus screen: Client presents with at least one sign or symptom that may indicate coronavirus-19. Ebola Screen: No symptoms or risks identified at this time. Initial Sepsis Screen: Does the patient meet any 2 criteria? No. Patient's initial sepsis screen is negative. Does the patient have a suspected source of infection? No. Patient's initial sepsis screen is negative. Risk Assessment: Do you want to hurt yourself or someone else? Patient reports no desire to harm self or others. Onset of symptoms was February 12, 2023. 20:00 Method Of Arrival: Ambulatory ap3 20:00 Acuity: KARIE 4 ap3 Triage Assessment: 20:01 General: Appears ill, Behavior is calm, cooperative, appropriate for age, Reports fever ap3 for feeling ill for fatigue for. Pain: Complains of pain in generalized body aches Pain currently is 9 out of 10 on a pain scale. Neuro: Level of Consciousness is awake, alert, obeys commands, Oriented to person, place, time, situation. Cardiovascular: Patient's skin is warm and dry. Respiratory: Reports cough that is Airway is patent Respiratory effort is even, unlabored, Respiratory pattern is regular, symmetrical. 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 - Social history:: Smoking status: Patient denies any tobacco usage or history of. Screenin:02 [facility] ED Fall Risk Assessment (Adult) History of falling in the last 3 months, ap3 including since admission No falls in past 3 months (0 pts). Abuse screen: Denies threats or abuse. Nutritional screening: No deficits noted. Tuberculosis screening: No symptoms or risk factors identified. Assessment: 20:37 General: Appears uncomfortable, well groomed, well developed, well nourished, Behavior me1 is calm, cooperative, appropriate for age, Reports chills for fever for feeling ill for 1-2 days, she has been having flu symptoms since yesterday.. patient reports fevers and body aches, with pain she reports to be a 9/10 on the pain scale. Pain: Complains of pain in generalized Pain does not radiate. Pain currently is 9 out of 10 on a pain scale. Quality of pain is described as aching, Pain began 1 day ago. Is continuous. Neuro: Level of Consciousness is awake, alert, obeys commands, Oriented to person, place, time, situation, Appropriate for age. Cardiovascular: Capillary refill < 3 seconds Patient's skin is warm and dry. Respiratory: Airway is patent Respiratory effort is even, unlabored, Respiratory pattern is regular, symmetrical. Vital Signs: 20:00 BP 104 / 67; Pulse 88; Resp 17; Temp 99.1; Pulse Ox 100% ; Weight 70.76 kg; Pain 9/10; ap3 21:31 BP 110 / 61; Pulse 83; Resp 18; Pulse Ox 100% on R/A; me1 20:00 Pain Scale: Adult ap3 ED Course: 19:55 Patient arrived in ED. mr 20:01 Triage completed. ap3 20:02 Gm Lopez PA is PHCP. cp 20:02 Keith Chester MD is Attending Physician. cp 20:02 Arm band placed on right wrist. ap3 20:36 Radha Lala, MCKENZIE is Primary Nurse. me1 20:37 Patient has correct armband on for positive identification. Bed in low position. Call me1 light in reach. Side rails up X 1. Provided Education on: POC. Verbalized understanding. . 20:37 No provider procedures requiring assistance completed. me1 21:33 Patient did not have IV access during this emergency room visit. me1 Administered Medications: 20:49 Drug: Tussionex Pennkinetic ER PO Suspension 5 ml PO once Route: PO; me1 21:33 Follow up: Response: No adverse reaction me1 Medication: 20:37 VIS not applicable for this client. me1 Outcome: 21:15 Discharge ordered by . selvin 21:32 Discharged to home ambulatory, with significant other, me1 21:32 Condition: stable 21:32 Discharge instructions given to patient, Instructed on discharge instructions, follow up and referral plans. medication usage, Demonstrated understanding of instructions, follow-up care, medications, Prescriptions given X 2, 21:33 Patient left the ED. me1 Signatures: Inga Zarco, Reg Reg mr Gm Lopez PA PA cp Prokisch, Amanda, RN RN ap3 Radha Lala RN RN me1 Corrections: (The following items were deleted from the chart) 20:37 20:00 Chief complaint: Patient states: she has been having flu symptoms since me1 yesterday.. patient reports fevers and body aches, with pain she reports to be a 9/10 on the pain scale ap3
[2023-02-13 21:40] VITALS: TEMP 99.1; O2SAT 100
[2023-02-13 21:54] VITALS: BP 110/61
== END 2023-02-13 21:33 | disposition home or self-care (01) ==
LOC: ER 19:53
DX: J11.1 Influenza due to unidentified influenza virus with other respiratory manifestations (principal); Z11.52 Encounter for screening for COVID-19
CPT/HCPCS: 87070; 87081; 87635; 87804; 99283

== ENCOUNTER → 2023-04-24 | Emergency (ER) | payer SELFPAY ==
[~2023-04-24] MED LIST: ACETAMINOPHEN 500 MG TAB ONE; IBUPROFEN 400 MG TAB ONE; ONDANSETRON 4 MG (ODT) TAB ONE; POTASSIUM CL SA 10 MEQ TAB PO ONE; PROMETHAZINE 25 MG TABLET ONE
[2023-04-24 23:48] LABS: Absolute Lymphocytes (CBC) 1.6 K/uL (0.7-4.9); Hematocrit 25.6 % (36.0-45.0); Lymphocytes % 42.2 % (15.3-44.8); MCV 78.4 fL (80-100); MPV 8.4 fL (7.6-11.3); Platelets 138 thou/uL (152-406); RBC Red Blood Cell Count 3.26 M/uL (3.86-4.86)
[2023-04-25 00:04] LABS: Albumin 3.7 g/dL (3.4-5.0); Bilirubin Total 0.3 mg/dL (0.2-1.0); Protein, Total 7.7 g/dL (6.4-8.2)
--- NOTE | 2023-04-25 01:13 | ER ---
Nurse's Notes [facility] Name: Bri Boyd Age: 37 yrs Sex: Female : 1985 Arrival Date: 04/24/2023 Time: 22:17 Bed 6 Private MD: Diagnosis: Nausea with vomiting, unspecified;Acute viral gastroenteritis, acute hypokalemia history of Glanzmann's thrombasthenia, chronic anemia Presentation: 04/24 22:33 Chief complaint: Patient states: nausea and vomiting times 3 days. Coronavirus screen: vc1 Vaccine status: Patient reports being unvaccinated. Client denies travel out of the [place] in the last 14 days. At this time, the client does not indicate any symptoms associated with coronavirus-19. Ebola Screen: Patient negative for fever greater than or equal to 101.5 degrees Fahrenheit, and additional compatible Ebola Virus Disease symptoms Patient denies exposure to infectious person. Patient denies travel to an Ebola-affected area in the 21 days before illness onset. No symptoms or risks identified at this time. Initial Sepsis Screen: Does the patient meet any 2 criteria? No. Patient's initial sepsis screen is negative. Does the patient have a suspected source of infection? No. Patient's initial sepsis screen is negative. Risk Assessment: Do you want to hurt yourself or someone else? Patient reports no desire to harm self or others. Onset of symptoms was April 21, 2022. 22:33 Method Of Arrival: Ambulatory vc1 22:33 Acuity: KARIE 3 vc1 Triage Assessment: 22:36 General: Appears in no apparent distress. uncomfortable, ill, Behavior is calm, vc1 cooperative, appropriate for age. Pain: Denies pain. EENT: No deficits noted. No signs and/or symptoms were reported regarding the EENT system. Neuro: Level of Consciousness is awake, alert, obeys commands, Speech is slurred. Cardiovascular: No deficits noted. Respiratory: Airway is patent Respiratory effort is even, unlabored, Respiratory pattern is regular, symmetrical. GI: Reports lower abdominal pain, upper abdominal pain, nausea, vomiting. GI: Reports diarrhea. : No deficits noted. No signs and/or symptoms were reported regarding the genitourinary system. Derm: No deficits noted. No signs and/or symptoms reported regarding the dermatologic system. Musculoskeletal: No deficits noted. No signs and/or symptoms reported regarding the musculoskeletal system. 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 - Social history:: Smoking status: Patient denies any tobacco usage or history of. - Family history:: not pertinent. Screenin:00 [facility] ED Fall Risk Assessment (Adult) History of falling in the last 3 months, jj7 including since admission No falls in past 3 months (0 pts) Confusion or Disorientation No (0 pts) Intoxicated or Sedated No (0 pts) Impaired Gait No (0 pts) Mobility Assist Device Used No (0 pt) Altered Elimination No (0 pt) Score/Fall Risk Level 0 - 2 = Low Risk Oriented to surroundings, Maintained a safe environment, Educated pt \T\ family on fall prevention, incl call for assistance when getting out of bed. Abuse screen: Denies threats or abuse. Nutritional screening: No deficits noted. Tuberculosis screening: No symptoms or risk factors identified. Assessment: 23:31 Reassessment: SEE TRIAGE ASSESSMENT. jj7 Vital Signs: 22:33 BP 118 / 65; Pulse 81; Resp 18; Temp 98.1; Pulse Ox 100% ; Weight 72.57 kg; Height 5 vc1 ft. 6 in. ; Pain 10/10; 23:09 BP 95 / 74; Pulse 79; Resp 16; Pulse Ox 100% ; jj7 04/25 00:15 BP 89 / 56; Pulse 69; Resp 17; Pulse Ox 100% ; jj7 01:31 BP 98 / 53; Pulse 71; Resp 17; Temp 98; Pulse Ox 98% on R/A; rv 04/24 22:33 Body Mass Index 25.82 (72.57 kg, 167.64 cm) vc1 04/24 22:33 Pain Scale: Adult vc1 ED Course: 04/24 22:18 Patient arrived in ED. jj6 22:23 Sean Newsome MD is Attending Physician. sp4 22:34 Triage completed. vc1 22:36 Arm band placed on right wrist. vc1 22:52 Influenza Screen (a \T\ B) Sent. jj7 22:52 COVID-19 SARS RT PCR Sent. jj7 23:00 Patient has correct armband on for positive identification. Bed in low position. Call jj7 light in reach. Side rails up X 1. Adult w/ patient. Warm blanket given. 23:00 No provider procedures requiring assistance completed. j7 23:16 Adria Martinez, RN is Primary Nurse. rv 23:43 Inserted saline lock: 22 gauge in right hand, using aseptic technique. Blood collected. rv 04/25 01:32 IV discontinued, intact, bleeding controlled, No redness/swelling at site. Pressure rv dressing applied. Administered Medications: 04/24 22:46 Drug: Ondansetron PO 8 mg PO once Route: PO; pf1 04/25 01:31 Follow up: Response: No adverse reaction rv 04/24 23:17 Drug: Promethazine PO 25 mg PO once Route: PO; rv 04/25 01:31 Follow up: Response: No adverse reaction rv 04/24 23:17 Drug: Ibuprofen PO 800 mg PO once Route: PO; rv 04/25 01:31 Follow up: Response: No adverse reaction rv 04/24 23:17 Drug: Acetaminophen PO 1000 mg PO once Route: PO; rv 04/25 01:30 Follow up: Response: No adverse reaction rv 01:30 Drug: Potassium Chloride PO 40 mEq PO once Route: PO; rv 01:30 Follow up: Response: Medication administered at discharge. rv Medication: 01:32 VIS not applicable for this client. rv Outcome: 01:13 Discharge ordered by . sp4 01:32 Discharged to home ambulatory, with family, rv 01:32 Condition: good 01:32 Discharge instructions given to patient, family, Instructed on discharge instructions, follow up and referral plans. medication usage, Demonstrated understanding of instructions, follow-up care, medications, Prescriptions given X 1, 01:32 Patient left the ED. rv Signatures: Adria Martinez, RN RN rv Ly Miguel jj6 Nancy Valero RN RN vc1 Santos Koenig RN RN jj7 Elizabeth Zheng RN RN pf1 Sean Newsome MD MD sp4
--- NOTE | 2023-04-25 01:13 | EDPHYS ---
Physician Documentation [facility] Name: Bri Boyd Age: 37 yrs Sex: Female : 1985 Arrival Date: 04/24/2023 Time: 22:17 Bed 6 Private MD: ED Physician Sean Newsome HPI: 04/24 22:23 This 37 yrs old Female presents to ER via Unassigned with complaints of sp4 Nausea/Vomiting. 04/25 01:09 PMH - Glanzmann's thrombasthenia. 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 . 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 - Social history:: Smoking status: Patient denies any tobacco usage or history of. - Family history:: not pertinent. ROS: 04/25 01:09 Constitutional: Positive fever, positive headache, positive vomiting, positive feeling sp4 unwell. All other systems are negative, Exam: 01:09 Constitutional: This is a well developed, well nourished patient who is awake, alert, sp4 and in no acute distress. Head/Face: Normocephalic, atraumatic. Eyes: Pupils equal round and reactive to light, extra-ocular motions intact. Lids and lashes normal. Conjunctiva and sclera are not injected. Cornea within normal limits. Periorbital areas with no swelling, redness, or edema. ENT: Nares patent. No nasal discharge, no septal abnormalities noted. Tympanic membranes are normal and external auditory canals are clear. Oropharynx with no redness, swelling, or masses, exudates, or evidence of obstruction, uvula midline. Mucous membranes moist. Neck: Trachea midline, no thyromegaly or masses palpated, and no cervical lymphadenopathy. Supple, full range of motion without nuchal rigidity, or vertebral point tenderness. Chest/axilla: Normal chest wall appearance and motion. Nontender with no deformity. No lesions are appreciated. Cardiovascular: Regular rate and rhythm with a normal S1 and S2. No gallops, murmurs, or rubs. Normal PMI, no JVD. No pulse deficits. Respiratory: Lungs have equal breath sounds bilaterally, clear to auscultation and percussion. No rales, rhonchi or wheezes noted. No increased work of breathing, no retractions or nasal flaring. Abdomen/GI: Soft, non-tender, with normal bowel sounds. No distension or tympany. No guarding or rebound. No evidence of tenderness throughout. Back: No spinal tenderness. No costovertebral tenderness. There is sacral decubitus ulcer that is covered by the wound VAC. Skin: Warm, dry with normal turgor. Normal color with no rashes, no lesions, and no evidence of cellulitis. MS/ Extremity: Pulses equal, no cyanosis. Neurovascular intact. Full, normal range of motion. Neuro: Awake and alert, GCS 15, oriented to person, place, time, and situation. Cranial nerves II-XII grossly intact. Motor strength 5/5 in all extremities. Sensory grossly intact. Psych: Awake, alert, with orientation to person, place and time. Behavior, mood, and affect are within normal limits Vital Signs: 04/24 22:33 BP 118 / 65; Pulse 81; Resp 18; Temp 98.1; Pulse Ox 100% ; Weight 72.57 kg; Height 5 vc1 ft. 6 in. ; Pain 10/10; 23:09 BP 95 / 74; Pulse 79; Resp 16; Pulse Ox 100% ; jj7 04/25 00:15 BP 89 / 56; Pulse 69; Resp 17; Pulse Ox 100% ; jj7 01:31 BP 98 / 53; Pulse 71; Resp 17; Temp 98; Pulse Ox 98% on R/A; rv 04/24 22:33 Body Mass Index 25.82 (72.57 kg, 167.64 cm) vc1 04/24 22:33 Pain Scale: Adult vc1 MDM: 04/24 22:37 Patient medically screened. sp4 04/25 01:09 Differential diagnosis: gastritis, viral gastroenteritis, gastroenteritis. Data sp4 reviewed: vital signs, nurses notes, lab test result(s), Flu: negative. Consideration of Admission/Observation Escalation of care including admission/observation considered. ED course: Patient has improved after medications, patient is stable for discharge home with as needed Phenergan, will recommend ibuprofen and Tylenol p.o. as needed symptom. ED course: Advise clear liquid diet for the next 24 hours.. 04/24 22:34 Order name: CBC with Diff; Complete Time: 00:03 sp4 04/24 22:34 Order name: CMP; Complete Time: 00:14 sp4 04/24 22:36 Order name: COVID-19 SARS RT PCR; Complete Time: 00:03 sp4 04/24 22:36 Order name: Influenza Screen (a \T\ B); Complete Time: 01:02 sp4 04/24 22:34 Order name: Labs collected and sent; Complete Time: 23:17 sp4 Administered Medications: 04/24 22:46 Drug: Ondansetron PO 8 mg PO once Route: PO; pf1 04/25 01:31 Follow up: Response: No adverse reaction rv 04/24 23:17 Drug: Promethazine PO 25 mg PO once Route: PO; rv 04/25 01:31 Follow up: Response: No adverse reaction rv 04/24 23:17 Drug: Ibuprofen PO 800 mg PO once Route: PO; rv 04/25 01:31 Follow up: Response: No adverse reaction rv 04/24 23:17 Drug: Acetaminophen PO 1000 mg PO once Route: PO; rv 04/25 01:30 Follow up: Response: No adverse reaction rv 01:30 Drug: Potassium Chloride PO 40 mEq PO once Route: PO; rv 01:30 Follow up: Response: Medication administered at discharge. rv Disposition Summary: 04/25/23 01:13 Discharge Ordered Problem: new sp4 Symptoms: have improved sp4 Condition: Stable sp4 Diagnosis - Nausea with vomiting, unspecified sp4 - Acute viral gastroenteritis, acute hypokalemia history of Glanzmann's sp4 thrombasthenia, chronic anemia Followup: sp4 - With: Private Physician - When: 7 - 10 days - Reason: Recheck today's complaints Discharge Instructions: - Discharge Summary Sheet sp4 - Viral Gastroenteritis, Adult, [id number] sp4 Forms: - Patient Portal Instructions sp4 Prescriptions: - promethazine 25 mg Oral tablet - take 1 tablet ORAL route every 6 hours As needed PRN nausea; 30 tablet; sp4 Refills: 0, Product Selection Permitted Signatures: Dispatcher [employer], KODI-C PREPRINT ANALYST-Csnw Adria Martinez, RN RN rv Nancy Valero RN RN vc1 Elizabeth Zheng RN RN pf1 Sean Newsome MD MD sp4
[2023-04-25 05:36] VITALS: BP 98/53; TEMP 98; O2SAT 98
== END ==
LOC: ER 22:17
DX: A08.4 Viral intestinal infection, unspecified (principal); E87.6 Hypokalemia; D69.1 Qualitative platelet defects; D64.9 Anemia, unspecified; Z11.52 Encounter for screening for COVID-19; Z88.6 Allergy status to analgesic agent; Z91.048 Other nonmedicinal substance allergy status
CPT/HCPCS: 36415; 80053; 85025; 87635; 87804; Q0162; Q0169

== ENCOUNTER 2023-07-25 18:34 | Emergency (ER) | payer SELFPAY ==
[2023-07-25] MEDS ORDERED: ONDANSETRON 4 MG/2 ML VIAL ONE (20:26)
[2023-07-25] MEDS ORDERED: NA CHLORIDE 0.9% 1,000 ML ONE (20:27)
[2023-07-25] MEDS ORDERED: FAMOTIDINE 20 MG/2 ML VIAL IV ONE (20:27)
[2023-07-25] MEDS ORDERED: FENTANYL CITR 100 MCG/2 ML ONE (20:27)
[2023-07-25 20:40] LABS: Absolute Eosinophils 0.1 K/uL (0-0.5); Absolute Lymphocytes (CBC) 1.1 K/uL (0.7-4.9); Absolute Monocytes 0.4 K/uL (0.1-1.3); Absolute Neutrophil 2.4 K/uL (1.8-8.0); Basophils % 0.9 % (0-1.3); Eosinophils % 3.4 % (0-4.4); Hematocrit 26.3 % (36.0-45.0); Hemoglobin 8.3 g/dL (12.0-15.0); Lymphocytes % 27.7 % (15.3-44.8); MCH 24.5 pg (27.0-35.0); MCHC 31.7 g/dL (32.0-36.0); MCV 77.4 fL (80-100); MPV 8.8 fL (7.6-11.3); Monocytes % 9.4 % (3.3-12.3); Neutrophils % 58.6 % (41.7-73.7); Nucleated Red Blood Cells % 0.1 % (0-0); Platelets 120 thou/uL (152-406); RBC Red Blood Cell Count 3.39 M/uL (3.86-4.86); Red Cell Distribution Width 17.9 % (12.1-15.2)
[2023-07-25] MEDS ORDERED: DIPHENHYDRAMINE 50 MG/ML VIAL ONE (20:43)
[2023-07-25] MEDS ORDERED: METHYLPREDNISOLONE 125 MG INJ ONE (20:43)
[2023-07-25 20:57] LABS: Albumin 3.6 g/dL (3.4-5.0); Albumin/Globulin Ratio 0.9 (1.1-1.8); Anion Gap 6.9 mEq/L (5.0-15.0); Bilirubin Total 0.3 mg/dL (0.2-1.0); Globulin 4.2 g/dL (2.3-3.5); Potassium 3.9 mEq/L (3.5-5.1); Protein, Total 7.8 g/dL (6.4-8.2)
--- NOTE | 2023-07-25 22:33 | RAD REPORT ---
EXAM DESCRIPTION: CTAbdomen Pelvis W Contrast - 07/25/2023 10:23 pm CLINICAL HISTORY: Abdominal pain. ABD PAIN COMPARISON: <Comparisons> TECHNIQUE: Biphasic CT imaging of the abdomen and pelvis was performed with 100 ml non-ionic IV cont rast. All CT scans are performed using dose optimization technique as appropriate and may include automated exposure control or mA/KV adjustment according to patient size. FINDINGS: The lung bases are clear. The liver contains several low-density lesions, probably benign cyst or hemangioma. The largest in th e right lobe measuring 31 mm. This particular lesion appears to have increased in size mildly since t he comparative study. Spleen, pancreas, adrenal glands and kidneys are within normal limits. Benign l eft renal cyst. Cholecystectomy. No bowel obstruction, free air, free fluid or abscess. The appendix is normal. No evidence of signi ficant lymphadenopathy. 4 cm right adnexal cyst. No suspicious bony findings. IMPRESSION: Several low-density hepatic lesions are seen including mildly increased size of right lo be lateral lesion. This is favored to represent hemangioma but confirmation with nonemergent MRI live r protocol would be suggested. 4 cm right adnexal cyst.
[2023-07-25 23:12] LABS: Specific Gravity > 1.030 (1.005-1.030)
[2023-07-25 23:14] LABS: Specific Gravity > 1.030 (1.005-1.030); Urine Bacteria >50 /HPF (<20); Urine Bilirubin NEGATIVE (Negative); Urine Blood Negative (Negative); Urine Clarity Extremely Turbid (Clear); Urine Color Yellow (Yellow); Urine Culture Reflex Order NOT NEEDED; Urine Glucose NEGATIVE (Negative); Urine Ketones TRACE (Negative); Urine Microscopic Reflex YN ORDER UMIC; Urine Mucus Slight /HPF (None Seen); Urine Nitrite 2+ (Negative); Urine Protein TRACE (Negative); Urine RBC None Seen /HPF (None Seen); Urine Urobilinogen 1+ (Normal); Urine WBC <5 /HPF (<5)
[2023-07-25] MEDS ORDERED: ACETAMINOPHEN 500 MG TAB ONE (23:15)
[2023-07-25] MEDS ORDERED: MORPHINE 4 MG/ML SYR ONE (23:15)
[2023-07-25] MEDS ORDERED: CEFTRIAXONE 1000 MG/VIAL ONE (23:17)
--- NOTE | 2023-07-25 23:34 | EDPHYS ---
Physician Documentation [facility] Name: Bri Boyd Age: 38 yrs Sex: Female : 1985 Arrival Date: 07/25/2023 Time: 18:34 Bed 16 Private MD: ED Physician Rafaela Little HPI: 07/24 22:16 This 38 yrs old Female presents to ER via Ambulatory with complaints of Flank Pain, kb Knee Pain, Vomiting. 22:16 Pt is a 38 year old female who presents for upper abd pain, nausea, vomiting and kb headache for 4 days. Denies fever. . 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 - Infectious Disease History:: Denies. - Social history:: Smoking status: Patient denies any tobacco usage or history of. ROS: 22:17 Constitutional: As per HPI kb Exam: 22:17 Constitutional: This is a well developed, well nourished patient who is awake, alert, kb and in no acute distress. Head/Face: Normocephalic, atraumatic. ENT: Moist Mucous membranes Cardiovascular: Regular rate Respiratory: Respirations even and unlabored. No increased work of breathing. Talking in full sentences Back: No spinal tenderness. No costovertebral tenderness. Full range of motion. Skin: Warm, dry with normal turgor. Normal color. MS/ Extremity: Pulses equal, no cyanosis. Neurovascular intact. Full, normal range of motion. Neuro: Awake and alert, GCS 15, oriented to person, place, time, and situation. Moves all extremities. Normal gait. 22:17 Abdomen/GI: Inspection: abdomen appears normal, Bowel sounds: normal, Palpation: soft, in all quadrants, mild abdominal tenderness, in the right upper quadrant, Vital Signs: 18:45 BP 118 / 73; Pulse 83; Resp 16 S; Temp 97.3(TE); Pulse Ox 100% on R/A; Weight 86.18 kg as6 (R); Height 5 ft. 6 in. (R); Pain 9/10; 20:54 BP 98 / 58; Pulse 74; Resp 18; Pulse Ox 96% on R/A; Pain 10/10; kd4 23:12 BP 109 / 68; Pulse 68; Pulse Ox 100% on R/A; kd4 07/25 00:00 BP 112 / 64; Pulse 68; Resp 18; Temp 98; Pulse Ox 100% on R/A; Pain 8/10; kd4 07/24 18:45 Body Mass Index 30.67 (86.18 kg, 167.64 cm) as6 07/24 18:45 Pain Scale: Adult as6 20:54 Pain Scale: Adult kd4 07/25 00:00 Pain Scale: Adult kd4 [place] Coma Score: 07/24 23:42 Eye Response: spontaneous(4). Motor Response: obeys commands(6). Verbal Response: kd4 oriented(5). Total: 15. MDM: 18:47 Patient medically screened. kb 22:17 Differential diagnosis: gastritis, gastroesophageal reflux disease, non-specific abd kb pain, pancreatitis. Data reviewed: vital signs, nurses notes. 23:03 Counseling: I had a detailed discussion with the patient and/or guardian regarding the kb historical points, exam findings, and any diagnostic results supporting the discharge/admit diagnosis, lab results, radiology results, the need for outpatient follow up, a family practitioner, to return to the emergency department if symptoms worsen or persist or if there are any questions or concerns that arise at home. 23:33 ED course: Pt has no RLQ/right pelvic tenderness. kb 07/24 19:15 Order name: CBC with Diff; Complete Time: 20:47 kb 07/24 19:15 Order name: CMP; Complete Time: 20:59 kb 07/24 19:15 Order name: Lipase; Complete Time: 20:59 kb 07/24 19:15 Order name: Test, Urine; Complete Time: 23:13 kb 07/24 19:15 Order name: Urinalysis w/ reflexes; Complete Time: 23:14 kb 07/24 19:15 Order name: CT Abd/Pelvis - IV Contrast Only; Complete Time: 22:34 kb 07/24 19:15 Order name: IV Saline Lock; Complete Time: 20:28 kb 07/24 19:15 Order name: Labs collected and sent; Complete Time: 20:28 kb Administered Medications: 20:37 Drug: Famotidine IVP 20 mg IVP once; dilute with 10 mL 0.9% NaCl; give over 2 minutes kd4 Route: IVP; Site: left forearm; 07/25 00:01 Follow up: Response: No adverse reaction 4 07/24 20:37 Drug: Ondansetron IVP 4 mg IVP once; over 2 minutes Route: IVP; Site: left forearm; kd4 07/25 00:01 Follow up: Response: No adverse reaction 4 07/24 20:37 Drug: fentaNYL (PF) IVP 25 mcg IVP once Route: IVP; Site: left forearm; 4 07/25 00:00 Follow up: Response: No adverse reaction 4 07/24 20:38 Drug: NS 0.9% IV 1000 ml IV at 1 bolus Per protocol; 1000 mL bolus Route: IV; Rate: 1 kd4 bolus; Site: left forearm; Delivery: Primary tubing; 07/25 00:03 Follow up: IV Status: Completed infusion 4 00:10 Follow up: IV Status: Completed infusion 4 07/24 20:49 Drug: MethylPrednisoLONE IVP 125 mg IVP once Route: IVP; Site: left forearm; 4 07/25 00:00 Follow up: Response: No adverse reaction 4 07/24 20:49 Drug: diphenhydrAMINE IVP 12.5 mg IVP once Route: IVP; Site: left forearm; kd4 07/25 00:00 Follow up: Response: No adverse reaction 4 07/24 23:20 Drug: Acetaminophen PO 1000 mg PO once Route: PO; 4 07/25 00:00 Follow up: Response: No adverse reaction 4 07/24 23:26 Drug: morphine IVP or IV 2 mg IVP once over 4 mins Route: IVP; Infused Over: 4 mins; kd4 Site: left forearm; 07/25 00:00 Follow up: Response: No adverse reaction 4 07/24 23:26 Drug: Rocephin IV 1 grams IV at calculated rate once; Given slow IV push per pharmacy kd4 instructions Route: IV; Rate: calculated rate; Site: left forearm; 07/25 00:00 Follow up: Response: No adverse reaction kd4 Disposition: 17:26 Co-signature as Attending Physician, Rafaela Little I agree with the assessment ci and plan of care. I reviewed the patient's care provided by the Advanced Practice Provider and agree with the diagnosis and treatment plan. Disposition Summary: 07/25/23 23:34 Discharge Ordered Notes: Location: Home kb Condition: Stable kb Diagnosis - UTI/ Urinary tract infection, site not specified kb - Upper abdominal pain, unspecified - liver lesions(07/25/23 23:34) kb - Other ovarian cysts kb Followup: kb - With: Emergency Department - When: As needed - Reason: Worsening of condition Followup: kb - With: Private Physician - When: 2 - 3 days - Reason: Recheck today's complaints, Continuance of care, Re-evaluation by your physician Discharge Instructions: - Discharge Summary Sheet kb - Urinary Tract Infection, Adult, [id number] kb - Abdominal Pain, Adult, [id number] kb - Ovarian Cyst, [id number] kb Forms: - Medication Reconciliation Form kb - Thank You Letter kb - Antibiotic Education kb - Prescription Opioid Use kb - Patient Portal Instructions kb - Leadership Thank You Letter kb Prescriptions: - Augmentin 875-125 mg Oral Tablet - take 1 tablet ORAL route every 12 hours for 10 days; 20 tablet; Refills: 0, kb Product Selection Permitted Signatures: Dispatcher [employer] Paz Purvis, PROFESSIONAL SKATEBOARDER-C PROFESSIONAL SKATEBOARDER-Chance Braxton RN RN as6 Iheonunekwu, Adonay Hanna RN RN kd4 Corrections: (The following items were deleted from the chart) 07/24 23:34 Upper abdominal pain, unspecified kb kb
--- NOTE | 2023-07-25 23:34 | ER ---
Nurse's Notes [facility] Name: Bri Boyd Age: 38 yrs Sex: Female : 1985 Arrival Date: 07/25/2023 Time: 18:34 Bed 16 Private MD: Diagnosis: UTI/ Urinary tract infection, site not specified;Upper abdominal pain, unspecified-liver lesions;Other ovarian cysts Presentation: 07/24 18:45 Chief complaint: Patient states: headaches, vomiting, right side pain, right knee pain as6 x4 days. Coronavirus screen: At this time, the client does not indicate any symptoms associated with coronavirus-19. Ebola Screen: No symptoms or risks identified at this time. Initial Sepsis Screen: Does the patient meet any 2 criteria? No. Patient's initial sepsis screen is negative. Does the patient have a suspected source of infection? No. Patient's initial sepsis screen is negative. Risk Assessment: Do you want to hurt yourself or someone else? Patient reports no desire to harm self or others. Onset of symptoms was July 21, 2023. 18:45 Method Of Arrival: Ambulatory as6 18:45 Acuity: KARIE 3 as6 Triage Assessment: 20:30 General: Appears distressed, uncomfortable, Behavior is calm, cooperative. kd4 20:30 GI: Reports upper abdominal pain. 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 - Infectious Disease History:: Denies. - Social history:: Smoking status: Patient denies any tobacco usage or history of. Screenin:42 [facility] ED Fall Risk Assessment (Adult) History of falling in the last 3 months, kd4 including since admission No falls in past 3 months (0 pts). Abuse screen: Denies threats or abuse. Nutritional screening: No deficits noted. Tuberculosis screening: No symptoms or risk factors identified. Assessment: 20:30 Pain: Complains of pain in right upper quadrant Pain currently is 9 out of 10 on a pain kd4 scale. Neuro: No deficits noted. Respiratory: No deficits noted. GI: Abdomen is round. Vital Signs: 18:45 BP 118 / 73; Pulse 83; Resp 16 S; Temp 97.3(TE); Pulse Ox 100% on R/A; Weight 86.18 kg as6 (R); Height 5 ft. 6 in. (R); Pain 9/10; 20:54 BP 98 / 58; Pulse 74; Resp 18; Pulse Ox 96% on R/A; Pain 10/10; kd4 23:12 BP 109 / 68; Pulse 68; Pulse Ox 100% on R/A; kd4 07/25 00:00 BP 112 / 64; Pulse 68; Resp 18; Temp 98; Pulse Ox 100% on R/A; Pain 8/10; kd4 07/24 18:45 Body Mass Index 30.67 (86.18 kg, 167.64 cm) as6 04 18:45 Pain Scale: Adult as6 20:54 Pain Scale: Adult kd4 07/25 00:00 Pain Scale: Adult kd4 [place] Coma Score: 07/24 23:42 Eye Response: spontaneous(4). Motor Response: obeys commands(6). Verbal Response: kd4 oriented(5). Total: 15. ED Course: 18:35 Patient arrived in ED. rg4 18:46 Triage completed. as6 18:46 Paz David FNP-C is [facility]. kb 18:46 Rafaela Little is Attending Physician. kb 18:47 Arm band placed on. as6 19:42 Adonay Stewart, MCKENZIE is Primary Nurse. kd4 20:28 Accessed peripheral vein via ultrasound, utilizing dynamic ultrasound technique Clean \T\ cm10 dry. Dressing intact. Good blood return. Flushes easily. 20G left forearm . 20:30 Patient has correct armband on for positive identification. Bed in low position. Side kd4 rails up X2. Adult w/ patient. Client placed on continuous cardiac and pulse oximetry monitoring. NIBP monitoring applied. cotton stomper on. Pulse ox on. 22:25 CT Abd/Pelvis - IV Contrast Only In Process Unspecified. EDMS 23:48 No provider procedures requiring assistance completed. kd4 07/25 00:02 Provided Education on: d/c instruction provided. kd4 00:02 IV discontinued, intact. kd4 Administered Medications: 07/24 20:37 Drug: Famotidine IVP 20 mg IVP once; dilute with 10 mL 0.9% NaCl; give over 2 minutes kd4 Route: IVP; Site: left forearm; 07/25 00:01 Follow up: Response: No adverse reaction kd4 07/24 20:37 Drug: Ondansetron IVP 4 mg IVP once; over 2 minutes Route: IVP; Site: left forearm; kd4 07/25 00:01 Follow up: Response: No adverse reaction kd4 07/24 20:37 Drug: fentaNYL (PF) IVP 25 mcg IVP once Route: IVP; Site: left forearm; kd4 07/25 00:00 Follow up: Response: No adverse reaction kd4 07/24 20:38 Drug: NS 0.9% IV 1000 ml IV at 1 bolus Per protocol; 1000 mL bolus Route: IV; Rate: 1 kd4 bolus; Site: left forearm; Delivery: Primary tubing; 07/25 00:03 Follow up: IV Status: Completed infusion 4 00:10 Follow up: IV Status: Completed infusion kd4 07/24 20:49 Drug: MethylPrednisoLONE IVP 125 mg IVP once Route: IVP; Site: left forearm; kd4 07/25 00:00 Follow up: Response: No adverse reaction kd4 07/24 20:49 Drug: diphenhydrAMINE IVP 12.5 mg IVP once Route: IVP; Site: left forearm; kd4 07/25 00:00 Follow up: Response: No adverse reaction 4 07/24 23:20 Drug: Acetaminophen PO 1000 mg PO once Route: PO; kd4 07/25 00:00 Follow up: Response: No adverse reaction kd4 07/24 23:26 Drug: morphine IVP or IV 2 mg IVP once over 4 mins Route: IVP; Infused Over: 4 mins; kd4 Site: left forearm; 07/25 00:00 Follow up: Response: No adverse reaction 4 07/24 23:26 Drug: Rocephin IV 1 grams IV at calculated rate once; Given slow IV push per pharmacy kd4 instructions Route: IV; Rate: calculated rate; Site: left forearm; 07/25 00:00 Follow up: Response: No adverse reaction kd4 Medication: 07/24 23:42 VIS not applicable for this client. kd4 Outcome: 23:34 Discharge ordered by MD. danw 07/25 00:01 Discharged to home ambulatory, with family, kd4 Condition: stable Discharge instructions given to patient, Instructed on discharge instructions, Prescriptions given X 1, 00:03 Patient left the ED. kd4 Signatures: Dispatcher [employer] EDMS Paz David, CECILE MARIEE-Eliza Mayes rg4 Chance Leary RN RN as6 Yumiko Bauer, RN RN cm10 Adonay Stewart RN RN kd4 Corrections: (The following items were deleted from the chart) 07/24 23:33 23:12 Pulse 68bpm; Pulse Ox 100% RA; kd4 kd4 23:46 23:42 Pain: Complains of pain in right upper quadrant Pain currently is 9 out of 10 on kd4 a pain scale. kd4 23:46 23:42 Neuro: No deficits noted. kd4 kd4 23:46 23:42 GI: Abdomen is round kd4 kd4 23:46 23:42 Respiratory: No deficits noted. kd4 kd4 23:47 23:42 Patient has correct armband on for positive identification. Bed in low position. kd4 Side rails up X2. Adult w/ patient. kd4 23:47 23:42 Client placed on continuous cardiac and pulse oximetry monitoring. NIBP kd4 monitoring applied. cotton stomper on. Pulse ox on. kd4
[2023-07-26 00:49] VITALS: BP 109/68; TEMP 97.3; O2SAT 100
== END 2023-07-26 00:03 | disposition home or self-care (01) ==
LOC: ER 18:34
DX: N39.0 Urinary tract infection, site not specified (principal); N83.299 Other ovarian cyst, unspecified side; K76.9 Liver disease, unspecified
CPT/HCPCS: 36415; 74177; 80053; 81001; 81025; 83690; 85025; 96361; 96374; 96375; 99285; J0696; J1200; J2405; J2930; J3010; J7030; Q9967

== ENCOUNTER 2023-09-13 16:35 | Emergency (ER) | payer SELFPAY ==
[2023-09-13 17:45] LABS: SARS-CoV-2 Antigen CONTROL BLUE LINE VIS/BG OK; SARS-CoV-2 Antigen Rapid Res Negative (Negative)
--- NOTE | 2023-09-13 18:05 | EDPHYS ---
Physician Documentation [facility] Name: Bri Boyd Age: 38 yrs Sex: Female : 1985 Arrival Date: 09/13/2023 Time: 16:35 Bed DIS2 Private MD: ED Physician Favio Rock HPI: 09/12 17:33 This 38 yrs old Female presents to ER via Ambulatory with complaints of Flu Symptoms. sp3 17:33 38-year-old female with PMH above now presents to the ED with subjective fever, cough, sp3 flulike symptoms, body aches for 48 hours worsening over the last 12. Her daughter is also sick with similar symptoms. Patient denies any other symptoms including objective measured fever, headache, neck pain, shortness of breath, chest pain, abdominal pain, vomiting, diarrhea, syncope, rash, travel history, or any other signs or symptoms on ROS at this time.. 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 - Infectious Disease History:: Denies. - Social history:: Smoking status: Reported history of juuling and/or vaping. ROS: 17:34 Constitutional: Negative for fever, chills, and weight loss, Eyes: Negative for injury, sp3 pain, redness, and discharge, ENT: Negative for injury, pain, and discharge, Neck: Negative for injury, pain, and swelling, Cardiovascular: Negative for chest pain, palpitations, and edema, Abdomen/GI: Negative for abdominal pain, nausea, vomiting, diarrhea, and constipation, Back: Negative for injury and pain, MS/Extremity: Negative for injury and deformity, Skin: Negative for injury, rash, and discoloration, Neuro: Negative for headache, weakness, numbness, tingling, and seizure, Psych: Negative for depression, anxiety, suicide ideation, homicidal ideation, and hallucinations, Allergy/Immunology: Negative for hives, rash, and allergies, Endocrine: Negative for neck swelling, polydipsia, polyuria, polyphagia, and marked weight changes, Hematologic/Lymphatic: Negative for swollen nodes, abnormal bleeding, and unusual bruising, 17:34 All other systems are negative, Exam: 17:35 Constitutional: This is a well developed, well nourished patient who is awake, alert, sp3 and in no acute distress. Head/Face: Normocephalic, atraumatic. Eyes: Pupils equal round and reactive to light, extra-ocular motions intact. Lids and lashes normal. Conjunctiva and sclera are non-icteric and not injected. Cornea within normal limits. Periorbital areas with no swelling, redness, or edema. ENT: Nares patent. No nasal discharge, no septal abnormalities noted. External auditory canals are clear. Oropharynx with no redness, swelling, or masses, exudates, or evidence of obstruction, uvula midline. Mucous membranes moist. Neck: Trachea midline, no thyromegaly or masses palpated, and no cervical lymphadenopathy. Supple, full range of motion without nuchal rigidity, or vertebral point tenderness. No Meningismus. Chest/axilla: Normal chest wall appearance and motion. Nontender with no deformity. No lesions are appreciated. Cardiovascular: Regular rate and rhythm with a normal S1 and S2. No gallops, murmurs, or rubs. Normal PMI, no JVD. No pulse deficits. Respiratory: Lungs have equal breath sounds bilaterally, clear to auscultation and percussion. No rales, rhonchi or wheezes noted. No increased work of breathing, no retractions or nasal flaring. Abdomen/GI: Soft, non-tender, with normal bowel sounds. No distension or tympany. No guarding or rebound. No evidence of tenderness throughout. Back: No spinal tenderness. No costovertebral tenderness. Full range of motion. Skin: Warm, dry with normal turgor. Normal color with no rashes, no lesions, and no evidence of cellulitis. MS/ Extremity: Pulses equal, no cyanosis. Neurovascular intact. Full, normal range of motion. Neuro: Awake and alert, GCS 15, oriented to person, place, time, and situation. Cranial nerves II-XII grossly intact. Motor strength 5/5 in all extremities. Sensory grossly intact. Cerebellar exam normal. Normal gait. Psych: Awake, alert, with orientation to person, place and time. Behavior, mood, and affect are within normal limits. Vital Signs: 16:51 BP 119 / 71; Pulse 80; Resp 16; Temp 99; Pulse Ox 100% ; Weight 86.18 kg; Height 5 ft. db 6 in. ; 16:51 Body Mass Index 30.67 (86.18 kg, 167.64 cm) db MDM: 16:56 Patient medically screened. sb4 17:35 Data reviewed: vital signs, nurses notes, lab test result(s). ED course: 38-year-old sp3 female with flulike symptoms. Official diagnosis includes viral illness, influenza, COVID-19, strep pharyngitis, bronchitis, among others. Clinically I do not believe patient has pneumonia, sepsis, shock, ACS, PE, or any other critical process. Workup will include swabs for the above and conservative supportive care with overlying medications as indicated. Probable discharge on viral illness if negative workup above.. 18:04 ED course: All swabs negative. We will discharge patient home at this time with sp3 diagnosis of viral illness. Tessalon Perles for cough.. 09/12 16:56 Order name: SARS RAPID; Complete Time: 18:04 sb4 09/12 16:56 Order name: Flu; Complete Time: 18:04 sb4 09/12 17:02 Order name: Strep; Complete Time: 18:04 sp3 09/12 17:48 Order name: Throat Culture EDMS Administered Medications: No medications were administered Disposition Summary: 09/13/23 18:05 Discharge Ordered Notes: Location: Home sp3 Condition: Stable sp3 Diagnosis - Viral illness, cough sp3 Followup: sp3 - With: Private Physician - When: Upon discharge from the Emergency Department - Reason: Continuance of care Discharge Instructions: - Discharge Summary Sheet sp3 - Viral Illness, Adult sp3 Forms: - Medication Reconciliation Form sp3 - Antibiotic Education sp3 - Prescription Opioid Use sp3 - Patient Portal Instructions sp3 - Leadership Thank You Letter sp3 Prescriptions: - Tessalon Perles 100 mg Oral Capsule - take 1 capsule ORAL route every 8 hours As needed; 15 capsule; Refills: 0, sp3 Product Selection Permitted Signatures: Dispatcher [employer] Favio Black MD MD sp3 Sammie Anderson, RN RN Keerthi Bowie PA-C PA-C sb4 Corrections: (The following items were deleted from the chart) 17:34 17:33 38-year-old female with PMH above now presents to the ED with subjective fever, sp3 cough, flulike symptoms. sp3
--- NOTE | 2023-09-13 18:05 | ER ---
Nurse's Notes [facility] Name: Bri Boyd Age: 38 yrs Sex: Female : 1985 Arrival Date: 09/13/2023 Time: 16:35 Bed DIS2 Private MD: Diagnosis: Viral illness, cough Presentation: 09/12 16:51 Chief complaint: Patient states: BODY ACHES AND FLU LIKE SYMPTOMS STARTED 0400 TODAY. db Coronavirus screen: Client denies travel out of the [place] in the last 14 days. At this time, the client does not indicate any symptoms associated with coronavirus-19. Ebola Screen: Patient negative for fever greater than or equal to 101.5 degrees Fahrenheit, and additional compatible Ebola Virus Disease symptoms Patient denies exposure to infectious person. Patient denies travel to an Ebola-affected area in the 21 days before illness onset. No symptoms or risks identified at this time. Initial Sepsis Screen: Does the patient meet any 2 criteria? No. Patient's initial sepsis screen is negative. Does the patient have a suspected source of infection? No. Patient's initial sepsis screen is negative. Risk Assessment: Do you want to hurt yourself or someone else? Patient reports no desire to harm self or others. Onset of symptoms was September 13, 2023. 16:51 Method Of Arrival: Ambulatory db 16:51 Acuity: KARIE 4 db Triage Assessment: 16:52 General: Appears in no apparent distress. comfortable, Behavior is calm, cooperative. db Pain: Complains of pain in BODY ACHES. Neuro: Level of Consciousness is awake, alert, obeys commands, Oriented to person, place, time, situation. 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 - Infectious Disease History:: Denies. - Social history:: Smoking status: Reported history of juuling and/or vaping. Screenin:55 [facility] ED Fall Risk Assessment (Adult) History of falling in the last 3 months, mb9 including since admission No falls in past 3 months (0 pts) Confusion or Disorientation No (0 pts) Intoxicated or Sedated No (0 pts) Impaired Gait No (0 pts) Mobility Assist Device Used No (0 pt) Altered Elimination No (0 pt) Score/Fall Risk Level 0 - 2 = Low Risk Oriented to surroundings, Maintained a safe environment, Educated pt \T\ family on fall prevention, incl call for assistance when getting out of bed. Abuse screen: Denies threats or abuse. Nutritional screening: No deficits noted. Tuberculosis screening: No symptoms or risk factors identified. Assessment: 18:46 Reassessment: Patient appears in no apparent distress at this time. Patient and/or iw family updated on plan of care and expected duration. Pain level reassessed. Patient is alert, oriented x 3, equal unlabored respirations, skin warm/dry/pink. Vital Signs: 16:51 BP 119 / 71; Pulse 80; Resp 16; Temp 99; Pulse Ox 100% ; Weight 86.18 kg; Height 5 ft. db 6 in. ; 16:51 Body Mass Index 30.67 (86.18 kg, 167.64 cm) db ED Course: 16:45 Patient arrived in ED. mg5 16:45 Keerthi Fay PA-C [facility]. sb4 16:45 Raza De León MD is Attending Physician. sb4 16:52 Triage completed. db 16:52 Arm band placed on. db 16:54 Inga Cherry, MCKENZIE is Primary Nurse. mb9 16:55 Placed in gown. Bed in low position. Call light in reach. Side rails up X 1. Provided mb9 Education on: press call light if needing anything. Client placed on continuous cardiac and pulse oximetry monitoring. NIBP monitoring applied. 16:57 Favio Rock MD is Attending Physician. sb4 18:46 Nunu Duran, MCKENZIE is Primary Nurse. iw 18:46 No provider procedures requiring assistance completed. Patient did not have IV access iw during this emergency room visit. Administered Medications: No medications were administered Medication: 16:55 VIS not applicable for this client. mb9 Outcome: 18:05 Discharge ordered by . sp3 18:46 Discharged to home ambulatory, with family, iw 18:46 Condition: good 18:46 Discharge instructions given to patient, Instructed on discharge instructions, follow up and referral plans. Demonstrated understanding of instructions, follow-up care, medications, Prescriptions given X 1, 18:46 Patient left the ED. iw Signatures: Nunu Duran RN RN iw Favio Rock MD MD sp3 Sammie Anderson RN RN Keerthi Bowie, PA-C PA-C sb4 Inga Cherry RN RN mb9 Caitlin Jimenez mg5 Corrections: (The following items were deleted from the chart) 16:53 16:51 Pulse 80bpm; Resp 16bpm; Pulse Ox 100%; Temp 99F; 86.18 kg; Height 5 ft. 6 in.; db BMI: 30.6; db
[2023-09-13 18:58] VITALS: BP 119/71; TEMP 99; O2SAT 100
== END 2023-09-13 18:46 | disposition home or self-care (01) ==
LOC: ER 16:35
DX: B34.9 Viral infection, unspecified (principal); R05.9 Cough, unspecified; Z88.8 Allergy status to other drugs, medicaments and biological substances; Z11.52 Encounter for screening for COVID-19
CPT/HCPCS: 36415; 87070; 87081; 87804; 87811; 99283

== ENCOUNTER 2024-05-08 13:51 | Emergency (ER) | payer SELFPAY ==
--- OUTSIDE RECORDS SUMMARY | 2024-05-08 13:53 | XMS REPORT | Clinical Summary ---
Author Name Unknown Organization [facility] Address [address] [place] [address] Care Team Providers Care Osteopathy Doctor Name Role Phone Jose Mumtaz Unavailable Unavailable Ketty Pink Rp, MD Primary Care Provider [phone] Allergies Active Allergy Reactions Criticality Noted Date Comments Aspirin GI Bleeding 12/24/2009 Unable to take d/t clotting disorder. Penicillin Rash Low 06/05/2016 Medications ferrous sulfate 325 mg (65 mg elemental iron per tablet) tablet Take 325 mg by mouth. 08/02/2018 Active DOCOSAHEXANOIC ACID ORAL Take 1 each by mouth. 07/20/2018 Active multivitamin (THERAGRAN) tablet Take 1 tablet by mouth daily. Active acetaminophen (TYLENOL ORAL) Take 1 tablet by mouth as needed. Active ascorbic acid, vitamin C, (VITAMIN C) 100 mg tablet Take 100 mg by mouth daily. Active PNV 67-iron ps-folate no.1-dha (VITAFOL ULTRA) 29 mg iron- 1 mg-200 mg cap Take 1 each by mouth daily. 07/20/2018 Active Active Problems Problem Noted Date Diagnosed Date Iron deficiency 09/18/2018 Other fatigue 09/18/2018 Surgical History Surgery Date Site/Laterality Comments MULTIPLE TOOTH EXTRACTIONS 04/17/2016 - 04/16/2017 complicated procedure OTHER SURGICAL HISTORY 02/15/2017 - 03/16/2017 Left Tibiocalcaneal Arthrodesis OSTEOTOMY 11/15/2016 - 12/15/2016 Left LAPAROSCOPIC REPAIR HERNIA INGUINAL CHOLECYSTECTOMY SECTION, CLASSIC ORIF FOOT FRACTURE ANKLE ARTHROSCOPY W/ OPEN REPAIR 04/17/2016 - 04/16/2017 Left NOVA shot treated at [facility] OTHER SURGICAL HISTORY Alveoploplasty in conjunction w/ extraction HERNIA REPAIR Medical History Medical History Date Comments H/O: blood transfusion 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 high risk HPV Family History Medical History Relation Name Comments -Colon cancer Father Porfirio Diabetes Father Porfirio Ovarian cancer Mother Relation Name Status Comments Father Porfirio Alive Mother Alive Social History Tobacco Use Types Packs/Day Years Used Date Smoking Tobacco: Former Cigarettes 0.1 1.5 0 12/20/2013 - 06/21/2015 Smokeless Tobacco: Never Tobacco Cessation:Ready to Q uit: Yes Alcohol Use Standard Drinks/Week Comments Not Currently 0 (1 standard drink = 0.6 oz pur e alcohol) Comments Unknown Sex and Gender Information Value Date Recorded Sex Assigned at Not on file Legal Sex Female 2:15 PM CDT Gender Identity Not on file Sexual Orientation Not on file 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 Not on file Not on file Not o n file Obstetrics History Para Term AB IAB SAB Ectopic Multiple Livin g Live Births 4 3 Date Outcome GA Total Labor Labor/2nd/3rd Weight Sex Type Anes PTL Kaley A1 A5 Name Clin Plan of Treatment Health Maintenance Due Date Last Done Comments COVID-19 Vaccine ( - 2023-2 5 season) 2023 Influenza Vaccine (#1) 2023 Pneumococcal Vaccine: Pediat rics (0 to 5 Years) and At-Risk Patients (6 to 64 Years) Aged Out No longer eligi ble based on patient's age to complete this topic Care Teams Osteopathy Doctor Relationship Specialty Start Date End Date Mumtaz Garcia PCP - External Referring 07/13/18 Ketty Pink Rp, MD [address] [place] [address] [email or web address] PCP - General Hematology and Oncology 07/13/18
--- NOTE | 2024-05-08 14:28 | RAD REPORT ---
EXAMINATION: ONE VIEW CHEST XR CLINICAL INDICATION: CHEST PAIN TECHNIQUE: Frontal chest projection is submitted. Examination is limited by patient positioning and t echnique. COMPARISON: 03/01/2021 FINDINGS: The lungs are well inflated and clear. The heart is normal in size. No displaced fractures identified . IMPRESSION: No acute intrathoracic abnormalities.
[2024-05-08 15:07] LABS: Absolute Eosinophils 0.2 K/uL (0-0.5); Absolute Lymphocytes (CBC) 1.1 K/uL (0.7-4.9); Absolute Monocytes 0.4 K/uL (0.1-1.3); Absolute Neutrophil 3.7 K/uL (1.8-8.0); Basophils % 0.5 % (0-1.3); Eosinophils % 3.8 % (0-4.4); Hematocrit 27.3 % (36.0-45.0); Hemoglobin 8.6 g/dL (12.0-15.0); Lymphocytes % 20.5 % (15.3-44.8); MCH 24.1 pg (27.0-35.0); MCHC 31.6 g/dL (32.0-36.0); MCV 76.4 fL (80-100); MPV 8.9 fL (7.6-11.3); Monocytes % 6.7 % (3.3-12.3); Neutrophils % 68.5 % (41.7-73.7); Platelets 120 thou/uL (152-406); RBC Red Blood Cell Count 3.57 M/uL (3.86-4.86); Red Cell Distribution Width 18.8 % (12.1-15.2)
[2024-05-08] MEDS ORDERED: HYDROCODONE/APAP 5/325 MG TAB ONE (15:07)
[2024-05-08 15:26] LABS: ALT/SGPT 24 U/L (13-56); AST/SGOT 18 U/L (15-37); Albumin 3.8 g/dL (3.4-5.0); Albumin/Globulin Ratio 0.8 (1.1-1.8); Alkaline Phosphatase 64 U/L (45-117); BUN Blood Urea Nitrogen 10 mg/dL (7-18); Bicarbonate 21 mEq/L (21-32); Bilirubin Direct 0.2 mg/dL (0-0.2); Bilirubin Indirect, Calculated 0.4 mg/dL (0.2-0.8); Bilirubin Total 0.6 mg/dL (0.2-1.0); Globulin 4.6 g/dL (2.3-3.5); Glomerular Filtration Rate 104 ml/min (=/>90); Glucose Level 107 mg/dL (74-106); Magnesium 1.7 mg/dL (1.6-2.4); Protein, Total 8.4 g/dL (6.4-8.2); Sodium Level 135 mEq/L (136-145)
[2024-05-08 15:27] LABS: Troponin High Sensitivity < 3.0 pg/mL (<58.9)
[2024-05-08] MEDS ORDERED: LORazepam 2 MG/ML VIAL ONE (15:41)
--- NOTE | 2024-05-08 16:25 | ER ---
Nurse's Notes [facility] Name: Bri Boyd Age: 38 yrs Sex: Female : 1985 Arrival Date: 05/08/2024 Time: 13:51 Bed 18 Private MD: Diagnosis: Chest pain, unspecified Presentation: 05/08 14:02 Chief complaint: Patient states: Left sided chest pain - "knot above breast." Pt ld1 reports "It may be from vaping, I vape a lot." Tingling to hands X 2 days. Coronavirus screen: At this time, the client does not indicate any symptoms associated with coronavirus-19. Ebola Screen: No symptoms or risks identified at this time. Initial Sepsis Screen: Does the patient meet any 2 criteria? No. Patient's initial sepsis screen is negative. Does the patient have a suspected source of infection? No. Patient's initial sepsis screen is negative. Risk Assessment: Do you want to hurt yourself or someone else? Patient reports no desire to harm self or others. Onset of symptoms was May 08, 2024. 14:02 Method Of Arrival: Ambulatory ld1 14:02 Acuity: KARIE 3 ld1 Triage Assessment: 14:02 General: Appears in no apparent distress. uncomfortable, Behavior is cooperative, ld1 anxious. Pain: Complains of pain in chest Pain does not radiate. Pain currently is 8 out of 10 on a pain scale. Quality of pain is described as throbbing, Pain began suddenly, Is continuous. EENT: No signs and/or symptoms were reported regarding the EENT system. Neuro: Level of Consciousness is awake, alert, obeys commands, Oriented to person, place, time, situation, Appropriate for age. Cardiovascular: Capillary refill < 3 seconds Patient's skin is warm and dry. Respiratory: Airway is patent Respiratory effort is even, unlabored. GI: Abdomen is round non-distended. : No signs and/or symptoms were reported regarding the genitourinary system. Derm: No signs and/or symptoms reported regarding the dermatologic system. Musculoskeletal: No signs and/or symptoms reported regarding the musculoskeletal system. Historical: - Allergies: 14:02 Aspirin; ld1 14:02 IV IRON; ld1 14:02 NSAIDS; ld1 - PMHx: 14:02 Anemia; Glanzmann Thrombasthenia; ld1 - PSHx: 14:02 section; LLE SX; Total abdominal hysterectomy; ld1 - Immunization history:: Adult Immunizations up to date. - Infectious Disease History:: Denies. - Social history:: Smoking status: Reported history of juuling and/or vaping. Screenin:55 [facility] ED Fall Risk Assessment (Adult) History of falling in the last 3 months, kc6 including since admission No falls in past 3 months (0 pts) Confusion or Disorientation No (0 pts) Intoxicated or Sedated No (0 pts) Impaired Gait No (0 pts) Mobility Assist Device Used No (0 pt) Altered Elimination No (0 pt) Score/Fall Risk Level 0 - 2 = Low Risk Oriented to surroundings, Maintained a safe environment, Educated pt \\T\\ family on fall prevention, incl call for assistance when getting out of bed. Abuse screen: Denies threats or abuse. Denies injuries from another. Nutritional screening: No deficits noted. Tuberculosis screening: No symptoms or risk factors identified. Assessment: 14:56 General: Appears in no apparent distress. comfortable, well groomed, well developed, kc6 Behavior is calm, cooperative, appropriate for age. Pain: Complains of pain in anterior aspect of left upper chest and left breast Pain does not radiate. Pain currently is 10 out of 10 on a pain scale. Neuro: Level of Consciousness is awake, alert, obeys commands, Oriented to person, place, time, situation, Appropriate for age Reports numbness in right hand and left hand paresthesias in right hand and left hand. Cardiovascular: Reports chest pain, Heart tones S1 S2 present Capillary refill < 3 seconds Rhythm is sinus rhythm. Respiratory: Airway is patent Trachea midline Respiratory effort is even, unlabored, Respiratory pattern is regular, symmetrical. GI: No signs and/or symptoms were reported involving the gastrointestinal system. : No signs and/or symptoms were reported regarding the genitourinary system. EENT: No signs and/or symptoms were reported regarding the EENT system. Derm: No signs and/or symptoms reported regarding the dermatologic system. Skin is intact, is healthy with good turgor, Skin is dry, Skin is normal, Skin temperature is warm Bruising that is of various stages to the SAMANTHA arms, left eye brow, and right ankle. Musculoskeletal: No signs and/or symptoms reported regarding the musculoskeletal system. Circulation, motion, and sensation intact. Range of motion: intact in all extremities. 15:37 Reassessment: No changes from previously documented assessment. would like some more 1 pain medicine and anxiety medicine. Trey David NP informed. 15:45 Reassessment: Patient appears in no apparent distress at this time. No changes from kc6 previously documented assessment. Patient and/or family updated on plan of care and expected duration. Pain level reassessed. Patient is alert, oriented x 3, equal unlabored respirations, skin warm/dry/pink. Patient states symptoms have not improved. 16:51 Reassessment: Patient appears in no apparent distress at this time. No changes from kc6 previously documented assessment. Patient and/or family updated on plan of care and expected duration. Pain level reassessed. Patient is alert, oriented x 3, equal unlabored respirations, skin warm/dry/pink. Vital Signs: 14:02 BP 137 / 94; Pulse 95; Resp 18; Temp 97.2(TE); Pulse Ox 94% on R/A; Weight 95.25 kg; ld1 Height 5 ft. 4 in. ; Pain 10/10; 15:45 BP 120 / 62; Pulse 90; Resp 18 S; Pulse Ox 98% on R/A; kc6 14:02 Body Mass Index 36.05 (95.25 kg, 162.56 cm) ld1 14:02 Pain Scale: Adult ld1 ED Course: 13:55 Patient arrived in ED. ra3 13:55 Paz David FNP-C [facility]. kb 13:55 Klever Fox DO is Attending Physician. kb 14:02 Arm band placed on right wrist. ld1 14:03 Triage completed. ld1 14:25 XRAY Chest (1 view) In Process Unspecified. EDMS 14:35 Lynne Wan, MCKENZIE is Primary Nurse. kc6 14:54 Initial lab(s) drawn, by me, sent to lab. Missed attempt(s): 20 gauge in right kc6 antecubital area. Inserted saline lock: 22 gauge in right hand, using aseptic technique. Blood collected. Flushed with 10 mL NS. Patient maintains SpO2 saturation greater than 95% on room air. 14:55 Patient requests pain medication. kc6 14:55 Patient has correct armband on for positive identification. Bed in low position. Call kc6 light in reach. Side rails up X 1. Adult w/ patient. customer account technician on. Pulse ox on. NIBP on. Door closed. Noise minimized. Lights dimmed. Pillow given. 15:47 Warm blanket given. Verbal reassurance given. kc6 16:10 Patient requests pain medication. kc6 16:15 Patient requests pain medication. kc6 16:51 No provider procedures requiring assistance completed. IV discontinued, intact, kc6 bleeding controlled, No redness/swelling at site. Pressure dressing applied. Administered Medications: 15:09 Drug: HYDROcodone-acetaminophen PO 5 mg-325 mg 1 tabs PO once Route: PO; kc6 15:45 Follow up: Response: No adverse reaction; Pain is unchanged, physician notified; RASS: kc6 Alert and Calm (0) 15:45 Drug: Ativan IVP 0.5 mg IVP once Route: IVP; Site: right hand; kc6 16:10 Follow up: Response: No adverse reaction; Pain is unchanged, physician notified; RASS: kc6 Drowsy (-1) 16:51 Drug: Acetaminophen PO 500 mg PO once Route: PO; kc6 16:52 Follow up: Response: No adverse reaction kc6 Medication: 16:51 VIS not applicable for this client. kc6 Outcome: 16:24 Discharge ordered by MD. kb 16:51 Discharged to home ambulatory, with significant other, kc6 16:51 Condition: good 16:51 Discharge instructions given to patient, significant other, Instructed on discharge instructions, follow up and referral plans. medication usage, Demonstrated understanding of instructions, follow-up care, medications, Prescriptions given X 1, 16:52 Patient left the ED. kc6 Signatures: Dispatcher [employer] EDIA Paz David, DATA PROCESSING MECHANICBeba MARIEE-Eleanor France RN RN ll1 Yolanda Fox RN RN ld1 Lynne Wan RN RN kc6 Vickie Cai ra3 Corrections: (The following items were deleted from the chart) 14:04 14:02 Chief complaint: Patient states: Left sided chest pain - "knot above breast." Pt ld1 reports "It may be from vaping, I vape a lot." ld1 14:59 14:56 Derm: No signs and/or symptoms reported regarding the dermatologic system. Skin kc6 is intact, is healthy with good turgor, Skin is pink, warm \\T\\ dry. kc6 15:45 15:38 Response: No adverse reaction; RASS: Alert and Calm (0) kc6 kc6
--- NOTE | 2024-05-08 16:25 | EDPHYS ---
Physician Documentation [facility] Name: Bri Boyd Age: 38 yrs Sex: Female : 1985 Arrival Date: 05/08/2024 Time: 13:51 Bed 18 Private MD: ED Physician Klever Fox HPI: 05/08 16:58 This 38 yrs old Female presents to ER via Ambulatory with complaints of Numbness Of kb Arm, Chest Pain - x2days. 16:58 Pt is a 38 year old female who presents for left upper chest pain for 2 days with kb intermittent parethesias to left hand. Denies shortness of breath. States she thinks she has been vaping too much and that is the cause, but she wanted to make sure it wasn't her heart. . Historical: - Allergies: 14:02 Aspirin; ld1 14:02 IV IRON; ld1 14:02 NSAIDS; ld1 - PMHx: 14:02 Anemia; Glanzmann Thrombasthenia; ld1 - PSHx: 14:02 section; LLE SX; Total abdominal hysterectomy; ld1 - Immunization history:: Adult Immunizations up to date. - Infectious Disease History:: Denies. - Social history:: Smoking status: Reported history of juuling and/or vaping. ROS: 16:50 Constitutional: As per HPI kb Exam: 16:50 Constitutional: This is a well developed, well nourished patient who is awake, alert, kb and in no acute distress. Head/Face: Normocephalic, atraumatic. ENT: Moist Mucous membranes Chest/axilla: Normal chest wall appearance and motion. Cardiovascular: Regular rate Respiratory: Respirations even and unlabored. No increased work of breathing. Talking in full sentences Skin: Warm, dry with normal turgor. Normal color. MS/ Extremity: Pulses equal, no cyanosis. Neurovascular intact. Full, normal range of motion. Neuro: Awake and alert, GCS 15, oriented to person, place, time, and situation. Vital Signs: 14:02 BP 137 / 94; Pulse 95; Resp 18; Temp 97.2(TE); Pulse Ox 94% on R/A; Weight 95.25 kg; ld1 Height 5 ft. 4 in. ; Pain 10/10; 15:45 BP 120 / 62; Pulse 90; Resp 18 S; Pulse Ox 98% on R/A; kc6 14:02 Body Mass Index 36.05 (95.25 kg, 162.56 cm) ld1 14:02 Pain Scale: Adult ld1 MDM: 13:55 Medical Screening Exam initiated kb 16:50 Data reviewed: vital signs, nurses notes. Counseling: I had a detailed discussion with kb the patient and/or guardian regarding the historical points, exam findings, and any diagnostic results supporting the discharge/admit diagnosis, lab results, radiology results, the need for outpatient follow up, a family practitioner, to return to the emergency department if symptoms worsen or persist or if there are any questions or concerns that arise at home. ED course: Pt sleeping comfortably when I entered to discuss results. I said pt's name a couple of times and patted her arm to wake her. I explained all results with pt and recommended follow up with PCP. Pt stated that the pain never went away and it hurts a lot. Tylenol given. . 16:53 ED course: Pt has been given norco for pain. Requested IV pain and anxiety medication kb at this time. Will give a dose of ativan. . 16:58 Differential diagnosis: acute WA, arrhythmia, abnormal electrolytes, anxiety. Scoring kb Tools PERC Rule for PE Age >/= 50 No HR >/= 100 No O2 Sat Room Air < 95% No Unilateral leg swelling No Hemoptysis No Recent surgery or trauma </= 4 wks ago requiring treatment with general anesthesia No (0 pt) Prior PE or DVT No Hormone use (Oral contraceptives, hormone replacement or estrogenic hormones use in males or female patients No. 05/08 14:10 Order name: Basic Metabolic Panel; Complete Time: 15:34 kb 05/08 14:10 Order name: CBC with Diff; Complete Time: 15:35 kb 05/08 14:10 Order name: LFT's; Complete Time: 15:34 kb 05/08 14:10 Order name: Magnesium; Complete Time: 15:34 kb 05/08 14:10 Order name: Troponin HS; Complete Time: 15:34 kb 05/08 14:10 Order name: XRAY Chest (1 view); Complete Time: 14:29 kb 05/08 14:10 Order name: EKG; Complete Time: 14:11 kb 05/08 14:10 Order name: Cardiac monitoring; Complete Time: 14:54 kb 05/08 14:10 Order name: EKG - Nurse/Tech; Complete Time: 14:21 kb 05/08 14:10 Order name: IV Saline Lock; Complete Time: 14:54 kb 05/08 14:10 Order name: Labs collected and sent; Complete Time: 14:54 kb 05/08 14:10 Order name: O2 Per Protocol; Complete Time: 14:21 kb 05/08 14:10 Order name: O2 Sat Monitoring; Complete Time: 14:21 kb Administered Medications: 15:09 Drug: HYDROcodone-acetaminophen PO 5 mg-325 mg 1 tabs PO once Route: PO; kc6 15:45 Follow up: Response: No adverse reaction; Pain is unchanged, physician notified; RASS: kc6 Alert and Calm (0) 15:45 Drug: Ativan IVP 0.5 mg IVP once Route: IVP; Site: right hand; kc6 16:10 Follow up: Response: No adverse reaction; Pain is unchanged, physician notified; RASS: kc6 Drowsy (-1) 16:51 Drug: Acetaminophen PO 500 mg PO once Route: PO; kc6 16:52 Follow up: Response: No adverse reaction kc6 Disposition: 17:42 I was immediately available on-site in the Emergency Department for consultation in the ms3 care of the patient. Disposition Summary: 05/08/24 16:24 Discharge Ordered Notes: Location: Home kb Condition: Stable kb Diagnosis - Chest pain, unspecified kb Followup: kb - With: Emergency Department - When: As needed - Reason: Worsening of condition Followup: kb - With: Private Physician - When: 2 - 3 days - Reason: Recheck today's complaints, Continuance of care, Re-evaluation by your physician Discharge Instructions: - Discharge Summary Sheet kb - Nonspecific Chest Pain, Adult, [id number] kb Forms: - Medication Reconciliation Form kb - Antibiotic Education kb - Prescription Opioid Use kb - Patient Portal Instructions kb - Leadership Thank You Letter kb Prescriptions: - Hydroxyzine HCl 25 mg Oral tablet - take 1 tablet ORAL route every 8 hours As needed; 12 tablet; Refills: 0, kb Product Selection Permitted Signatures: Dispatcher [employer] EDPaz Goetz FNP-C FNP-Ckb Sims, Marcus, DO ms3 Yolanda Fox RN RN ld1 Lynne Wan RN RN kc6 Corrections: (The following items were deleted from the chart) 14: 14:11 BASIC METABOLIC PANEL+C.LAB.BRZ ordered. EDMS EDMS 14: 14:11 CBC+H.LAB.BRZ ordered. EDMS EDMS 14: 14:11 HEPATIC FUNCTION+C.LAB.BRZ ordered. EDMS EDMS 14: 14:11 MAGNESIUM+C.LAB.BRZ ordered. EDMS EDMS 14: 14:11 Troponin High Sensitivity+C.LAB.BRZ ordered. EDMS EDMS
[2024-05-08] MEDS ORDERED: ACETAMINOPHEN 500 MG TAB ONE (16:42)
[2024-05-08 18:18] VITALS: TEMP 97.2
[2024-05-08 18:25] VITALS: BP 120/62; O2SAT 98
== END 2024-05-08 16:52 | disposition home or self-care (01) ==
LOC: ER 13:51
DX: R07.9 Chest pain, unspecified (principal)
CPT/HCPCS: 36415; 71045; 80048; 80076; 83735; 84484; 85025

== ENCOUNTER 2024-08-12 10:46 | Emergency (ER) | payer SELFPAY ==
--- OUTSIDE RECORDS SUMMARY | 2024-08-12 10:49 | XMS REPORT | Clinical Summary ---
Author Name Unknown Organization [facility] Address [address] [place] [address] Care Team Providers Care Sealer Operator Name Role Phone Jose Mumtaz Unavailable Unavailable Ketty Pink Rp, MD Primary Care Provider [phone] Allergies Active Allergy Reactions Criticality Noted Date [...] - 04/16/2017 Left NOVA shot treated at [facility] OTHER SURGICAL HISTORY Alveoploplasty in conjunction w/ extraction HERNIA REPAIR Medical History Medical History Date Comments H/O: blood transfusion Viral hepatitis C never required any treatment 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 PCP - General Hematology and Oncology 07/13/18
--- NOTE | 2024-08-12 11:38 | RAD REPORT ---
EXAM: CT brain without contrast HISTORY: TRAUMA COMPARISON: None TECHNIQUE: Multiple contiguous axial images were obtained and a CT of the brain without contrast. Sag ittal and coronal reformats were performed. One or more of the following dose reduction techniques were used: Automated exposure control, adjust ment of the mA and/or kV according to patient size, and/or iterative reconstruction. FINDINGS: No evidence of hydrocephalus, intracranial hemorrhage, or extra-axial fluid collection. The brain is normal in morphology. No evidence of midline shift or areas of brain edema. The calvarium is intact. Rlib-qm-svvlnezx polypoid mucosal thickening left maxillary sinus. Paranasal sinuses and mastoids are otherwise clear. EXAM: CT of the cervical spine without contrast HISTORY: Neck pain, injury TRAUMA TECHNIQUE: Multiple contiguous axial images were obtained in a CT of the cervical spine without contr ast. Sagittal and coronal reformats were performed. FINDINGS: The vertebral bodies demonstrate normal height and alignment. No evidence of acute fracture or subluxation.. No degenerative changes are present. No prevertebral soft tissue swelling is seen. The posterior facets are well aligned. Normal alignment of the skull base with the cervical spine is seen. The lung apices are unremarkable. COMBINED IMPRESSION: No evidence of acute intracranial abnormality. No evidence of acute osseous abnormality of the cervical spine.
--- NOTE | 2024-08-12 11:40 | RAD REPORT ---
EXAMINATION: CT MAXILLOFACIAL WITHOUT CONTRAST CLINICAL INDICATION: FACIAL PAIN TECHNIQUE: Axial images were obtained through the facial bones and orbits without intravenous contras t. Sagittal and coronal reconstructions were created from the data. One or more of the following dose reduction techniques were used: Automated exposure control, adjustment of the mA and/or kV accor ding to patient size, and/or iterative reconstruction. Unless otherwise specified, incidental findings do not require dedicated imaging follow-up. COMPARISON: No prior exam. FINDINGS: SOFT TISSUE: No significant abnormalities. BONES: No evidence of fracture, dislocation, or aggressive osseous lesions. No lesion of the visuali zed skull base or calvarium. ORBITS: The globes are intact. No intraorbital hemorrhage or mass. SINUSES: Moderate mucoperiosteal thickening. IMPRESSION: No acute facial bone fracture appreciated.
[2024-08-12 12:08] LABS: Absolute Lymphocytes (CBC) 0.9 K/uL (0.7-4.9); Absolute Monocytes 0.3 K/uL (0.1-1.3); Absolute Neutrophil 2.8 K/uL (1.8-8.0); Basophils % 0.5 % (0-1.3); Eosinophils % 1.2 % (0-4.4); Hematocrit 27.7 % (36.0-45.0); Hemoglobin 8.7 g/dL (12.0-15.0); MCH 23.7 pg (27.0-35.0); MCHC 31.6 g/dL (32.0-36.0); MCV 75.1 fL (80-100); MPV 8.7 fL (7.6-11.3); Monocytes % 7.8 % (3.3-12.3); Neutrophils % 68.5 % (41.7-73.7); Nucleated Red Blood Cells % 0.1 % (0-0); Platelets 137 thou/uL (152-406); RBC Red Blood Cell Count 3.69 M/uL (3.86-4.86); Red Cell Distribution Width 18.9 % (12.1-15.2)
[2024-08-12 12:19] LABS: PT Prothrombin Time 14.3 SECONDS (10-13.0); PTT, Activated Partial Thromb 25.9 SECONDS (27.2-37.4); Protime INR 1.27
[2024-08-12 12:27] LABS: ALT/SGPT 33 U/L (13-56); Albumin 3.9 g/dL (3.4-5.0); Albumin/Globulin Ratio 0.8 (1.1-1.8); Alkaline Phosphatase 69 U/L (45-117); Anion Gap 11.9 mEq/L (5.0-15.0); BUN Blood Urea Nitrogen 10 mg/dL (7-18); Bicarbonate 24 mEq/L (21-32); Bilirubin Total 0.6 mg/dL (0.2-1.0); Globulin 4.9 g/dL (2.3-3.5); Glomerular Filtration Rate 94 ml/min (=/>90); Glucose Level 94 mg/dL (74-106); Protein, Total 8.8 g/dL (6.4-8.2); Sodium Level 133 mEq/L (136-145)
[2024-08-12 12:31] LABS: AST/SGOT 38 U/L (15-37); Bilirubin Direct < 0.2 mg/dL (0-0.2); Bilirubin Indirect, Calculated 0.4 mg/dL (0.2-0.8); Magnesium 1.7 mg/dL (1.6-2.4); Potassium 4.9 mEq/L (3.5-5.1); Troponin High Sensitivity < 3.0 pg/mL (<58.9)
--- NOTE | 2024-08-12 12:57 | EDPHYS ---
Physician Documentation [facility] Name: Bri Boyd Age: 39 yrs Sex: Female : 1985 Arrival Date: 08/12/2024 Time: 10:46 Bed 13 Private MD: ED Physician Raza De León HPI: 08/12 13:17 This 39 yrs old Female presents to ER via Ambulatory with complaints of Fall Injury, kb Head Injury-Adult. 13:17 Patient is a 39-year-old female who presents for syncope and head injury that occurred kb yesterday. States she was in the shower, became lightheaded and passed out. Reports pain to her head and face only. Contusions to chin and left cheek. Patient states she has a blood disorder so she is concerned about a brain bleed. Denies any other injury or trauma.. MOLDING SANDER: 13:11 Not kj2 Historical: - Allergies: 10:59 Aspirin; ld1 10:59 IV IRON; ld1 10:59 NSAIDS; ld1 - PMHx: 10:59 Anemia; Glanzmann Thrombasthenia; ld1 - PSHx: 10:59 section; LLE SX; Total abdominal hysterectomy; ld1 - Immunization history:: Adult Immunizations up to date. - Infectious Disease History:: Denies. - Social history:: Smoking status: Patient denies any tobacco usage or history of. ROS: 13:13 Constitutional: As per HPI kb Exam: 12:58 ECG was reviewed by the Attending Physician. kb 13:12 Constitutional: This is a well developed, well nourished patient who is awake, alert, kb and in no acute distress. Eyes: Pupils equal round and reactive to light, extra-ocular motions intact. Lids and lashes normal. Conjunctiva and sclera are non-icteric and not injected. Cornea within normal limits. Periorbital areas with no swelling, redness, or edema. ENT: Moist Mucous membranes Chest/axilla: Normal chest wall appearance and motion. Cardiovascular: Regular rate Respiratory: Respirations even and unlabored. No increased work of breathing. Talking in full sentences Back: No spinal tenderness. No costovertebral tenderness. Full range of motion. Skin: Warm, dry with normal turgor. Normal color. MS/ Extremity: Pulses equal, no cyanosis. Neurovascular intact. Full, normal range of motion. Neuro: Awake and alert, GCS 15, oriented to person, place, time, and situation. 13:12 Head/face: Noted is no obvious of injury or deformity except contusion, of the chin and left jaw, 13:12 Neck: External neck: tenderness, that is mild, of the left mid cervical area, right mid cervical area, left trapezius, lower cervical area and right trapezius, Vital Signs: 10:57 BP 140 / 86; Pulse 91; Resp 18; Temp 97.3(TE); Pulse Ox 97% on R/A; Weight 90.72 kg; ld1 Height 5 ft. 6 in. ; Pain 8/10; 12:15 BP 142 / 84; Pulse 74; Resp 20; Pulse Ox 100% on R/A; kj2 13:08 BP 138 / 78; Pulse 72; Resp 20; Temp 98.2; Pulse Ox 100% on R/A; kj2 10:57 Body Mass Index 32.28 (90.72 kg, 167.64 cm) ld1 10:57 Pain Scale: Adult ld1 MDM: 10:48 Medical Screening Exam initiated kb 13:13 Differential diagnosis: closed head injury, contusion, fracture, arrhythmia, abnormal kb electrolytes, ICH. Data reviewed: vital signs, nurses notes. Counseling: I had a detailed discussion with the patient and/or guardian regarding the historical points, exam findings, and any diagnostic results supporting the discharge/admit diagnosis, lab results, radiology results, the need for outpatient follow up, a family practitioner, to return to the emergency department if symptoms worsen or persist or if there are any questions or concerns that arise at home. 08/12 11:10 Order name: Basic Metabolic Panel; Complete Time: 12:40 kb 08/12 11:10 Order name: CBC with Diff; Complete Time: 12:09 kb 08/12 11:10 Order name: Hepatic Function; Complete Time: 12:40 kb 08/12 11:10 Order name: Magnesium; Complete Time: 12:40 kb 08/12 11:10 Order name: Protime (+inr); Complete Time: 12:22 kb 08/12 11:10 Order name: Ptt, Activated; Complete Time: 12:22 kb 08/12 11:10 Order name: Troponin High Sensitivity; Complete Time: 12:40 kb 08/12 11:10 Order name: CT Head C Spine; Complete Time: 12: kb 08/12 11:10 Order name: CT Facial Bones W/O Con; Complete Time: 12: kb 08/12 11:10 Order name: Cardiac monitoring; Complete Time: 12: kb 08/12 11:10 Order name: EKG - Nurse/Tech; Complete Time: 12: kb 08/12 11:10 Order name: IV Saline Lock; Complete Time: 12: kb 08/12 11:10 Order name: Labs collected and sent; Complete Time: 12: kb 08/12 11:10 Order name: NPO; Complete Time: 12: kb 08/12 11:10 Order name: O2 Per Protocol; Complete Time: : kb 08/12 11:10 Order name: O2 Sat Monitoring; Complete Time: 12:31 kb EC:58 Rate is 77 beats/min. Rhythm is regular. QRS [place] is Normal. NV interval is normal at kb 176 msec. QRS interval is normal at 82 msec. QT interval is normal at 463 msec. Administered Medications: 13:19 Drug: HYDROcodone-acetaminophen PO 5 mg-325 mg 1 tabs PO once Route: PO; kj2 13:19 Follow up: Response: Medication administered at discharge. kj2 Disposition: 14:01 Co-signature as Attending Physician, Raza De León MD I reviewed the patient's care rn provided by the Advanced Practice Provider and agree with the diagnosis and treatment plan. Disposition Summary: 08/12/24 12:57 Discharge Ordered Notes: Location: Home kb Condition: Stable kb Diagnosis - Syncope kb - Contusion of scalp kb - contusion/hematoma of face kb Followup: kb - With: Emergency Department - When: As needed - Reason: Worsening of condition Followup: kb - With: Private Physician - When: 2 - 3 days - Reason: Recheck today's complaints, Continuance of care, Re-evaluation by your physician Discharge Instructions: - Discharge Summary Sheet kb - Contusion, Mmbv-df-Dilb kb - Syncope, Hmrl-nv-Nyib kb - Head Injury, Adult, Mrha-uc-Djly kb Forms: - Medication Reconciliation Form kb - Antibiotic Education kb - Prescription Opioid Use kb - Patient Portal Instructions kb - Leadership Thank You Letter kb Signatures: Dispatcher [employer] EDPaz Goetz FNP-C FNP-Ckb Raza De León MD MD rn Yolanda Fox RN RN ld1 Audra Jarrett, RN RN kj2 Corrections: (The following items were deleted from the chart) 11: 11:11 BASIC METABOLIC PANEL+C.LAB.BRZ ordered. EDMS EDMS 11: 11:11 CBC+H.LAB.BRZ ordered. EDMS EDMS 11: 11:11 HEPATIC FUNCTION+C.LAB.BRZ ordered. EDMS EDMS : 11:11 MAGNESIUM+C.LAB.BRZ ordered. EDMS EDMS : 11:11 PROTIME (+INR)+COAG.LAB.BRZ ordered. EDMS EDMS 11: 11:11 PTT, ACTIVATED+COAG.LAB.BRZ ordered. EDMS EDMS 11: 11:11 Troponin High Sensitivity+C.LAB.BRZ ordered. EDMS EDMS 11:11 11:11 Head C Spine MPR Wo Con+CT.RAD.BRZ ordered. EDMS EDMS 11: 11:11 Facial Bones W/ MPR+CT.RAD.BRZ ordered. EDMS EDMS
--- NOTE | 2024-08-12 12:57 | ER ---
Nurse's Notes [facility] Name: Bri Boyd Age: 39 yrs Sex: Female : 1985 Arrival Date: 08/12/2024 Time: 10:46 Bed 13 Private MD: Diagnosis: Syncope;Contusion of scalp;contusion/hematoma of face Presentation: 08/12 10:57 Chief complaint: Patient states: Taking shower last night - "saw black spots and knew I ld1 was going to pass out." Pt reports passing out in shower - found unknown time later by . Bruising to face and jaw. C/O pain to head, jaw and SAMANTHA sides of face. Pt reports having blood disorder - glanzmanns thrombasthenia. Coronavirus screen: At this time, the client does not indicate any symptoms associated with coronavirus-19. Ebola Screen: No symptoms or risks identified at this time. Initial Sepsis Screen: Does the patient meet any 2 criteria? No. Patient's initial sepsis screen is negative. Does the patient have a suspected source of infection? No. Patient's initial sepsis screen is negative. Risk Assessment: Do you want to hurt yourself or someone else? Patient reports no desire to harm self or others. Onset of symptoms was August 12, 2024. 10:57 Method Of Arrival: Ambulatory ld1 10:57 Acuity: KARIE 2 ld1 Triage Assessment: 10:59 General: Appears in no apparent distress. uncomfortable, Behavior is calm, cooperative, ld1 appropriate for age. Pain: Complains of pain in face and scalp Pain does not radiate. Pain currently is 8 out of 10 on a pain scale. Quality of pain is described as throbbing, Pain began suddenly, Is continuous. EENT: No signs and/or symptoms were reported regarding the EENT system. Neuro: Level of Consciousness is awake, alert, obeys commands, Oriented to person, place, time, situation. Cardiovascular: Capillary refill < 3 seconds Patient's skin is warm and dry. Respiratory: Airway is patent Respiratory effort is even, unlabored. GI: Abdomen is round non-distended. : No signs and/or symptoms were reported regarding the genitourinary system. Derm: No signs and/or symptoms reported regarding the dermatologic system. Derm: Bruising that is dark purple, on left cheek, mouth, chin, right jaw and left jaw. Musculoskeletal: No signs and/or symptoms reported regarding the musculoskeletal system. 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 - Infectious Disease History:: Denies. - Social history:: Smoking status: Patient denies any tobacco usage or history of. Screenin:15 [facility] ED Fall Risk Assessment (Adult) History of falling in the last 3 months, kj2 including since admission Yes- single mechanical fall (1 pt) Confusion or Disorientation No (0 pts) Intoxicated or Sedated No (0 pts) Impaired Gait No (0 pts) Mobility Assist Device Used No (0 pt) Altered Elimination No (0 pt) Score/Fall Risk Level 0 - 2 = Low Risk Maintained a safe environment, Hourly rounding (assess needs \\T\\ fall precautionary measures) done. Abuse screen: Denies threats or abuse. Denies injuries from another. Nutritional screening: No deficits noted. Tuberculosis screening: No symptoms or risk factors identified. Assessment: 12:15 General: Appears in no apparent distress. Behavior is cooperative. Pain: Complains of kj2 pain in chin Pain currently is 8 out of 10 on a pain scale. Neuro: Level of Consciousness is awake, alert, obeys commands, Oriented to person, place, time, situation. Cardiovascular: Patient's skin is warm and dry. Respiratory: Airway is patent Respiratory effort is unlabored. GI: No signs and/or symptoms were reported involving the gastrointestinal system. : No signs and/or symptoms were reported regarding the genitourinary system. 13:08 Reassessment: Patient appears in no apparent distress at this time. Patient and/or kj2 family updated on plan of care and expected duration. Pain level reassessed. Patient is alert, oriented x 3, equal unlabored respirations, skin warm/dry/pink. Vital Signs: 10:57 BP 140 / 86; Pulse 91; Resp 18; Temp 97.3(TE); Pulse Ox 97% on R/A; Weight 90.72 kg; ld1 Height 5 ft. 6 in. ; Pain 8/10; 12:15 BP 142 / 84; Pulse 74; Resp 20; Pulse Ox 100% on R/A; kj2 13:08 BP 138 / 78; Pulse 72; Resp 20; Temp 98.2; Pulse Ox 100% on R/A; kj2 10:57 Body Mass Index 32.28 (90.72 kg, 167.64 cm) ld1 10:57 Pain Scale: Adult ld1 ED Course: 10:48 Patient arrived in ED. gl 10:48 Paz David FNP-C is PHCP. kb 10:48 Raza De León MD is Attending Physician. kb 10:59 Triage completed. ld1 10:59 Arm band placed on right wrist. ld1 11:23 CT Head C Spine In Process Unspecified. EDMS 11:23 CT Facial Bones W/O Con In Process Unspecified. EDMS 12:01 Basic Metabolic Panel Sent. bc6 12:01 CBC with Diff Sent. bc6 12:01 Hepatic Function Sent. bc6 12:01 Magnesium Sent. bc6 12:01 Protime (+inr) Sent. bc6 12:01 Ptt, Activated Sent. bc6 12:01 Troponin High Sensitivity Sent. bc6 12:01 Initial lab(s) drawn, by me, sent to lab. Inserted saline lock: 20 gauge in left bc6 forearm, using aseptic technique. Blood collected. Flushed with 10 mL NS. 12:14 Audra Jarrett, RN is Primary Nurse. kj2 12:15 Patient has correct armband on for positive identification. Bed in low position. Call kj2 light in reach. Provided Education on: call light. 13:10 No provider procedures requiring assistance completed. IV discontinued, intact, kj2 bleeding controlled, No redness/swelling at site. Pressure dressing applied. Administered Medications: 13:19 Drug: HYDROcodone-acetaminophen PO 5 mg-325 mg 1 tabs PO once Route: PO; kj2 13:19 Follow up: Response: Medication administered at discharge. kj2 Medication: 12:15 VIS not applicable for this client. kj2 Outcome: 12:57 Discharge ordered by . kb 13:11 Discharged to home ambulatory, kj2 13:11 Condition: stable 13:11 Discharge instructions given to patient, Instructed on discharge instructions, follow up and referral plans. Demonstrated understanding of instructions, follow-up care, 13:19 Patient left the ED. kj2 Signatures: Dispatcher [employer] EDPaz Goetz, CECILE MARIEE-Yolanda Jacob RN RN ld1 Tara Saunders bc6 Audra Jarrett RN RN kj2 Jacquelin Haley, Reg Reg gl
[2024-08-12] MEDS ORDERED: HYDROCODONE/APAP 5/325 MG TAB ONE (13:14)
--- NOTE | 2024-08-13 11:47 | EKG ---
Test Date: 2024-08-12 Test Time: 12:44:17 Bill Peddler: GONZÁLEZ MEASUREMENT RESULTS: Intervals: Rate: 77 OK: 176 QRSD: 82 QT: 410 QTc: 463 Otho: P: 35 OK: 176 QRS: 37 T: 35 INTERPRETIVE STATEMENTS: Normal sinus rhythm Normal ECG Compared to ECG 05/08/2024 14:08:46 No significant changes Electronically Signed On 08-13-24 11:46:00 CDT by Marvin Saucedo
[2024-08-13 15:19] VITALS: O2SAT 100
[2024-08-13 15:20] VITALS: BP 138/78; TEMP 98.2
== END 2024-08-12 13:19 | disposition home or self-care (01) ==
LOC: ER 10:46
DX: R55 Syncope and collapse (principal); S00.03XA Contusion of scalp, initial encounter; S00.83XA Contusion of other part of head, initial encounter
CPT/HCPCS: 36415; 70450; 70486; 72125; 76377; 80048; 80076; 83735; 84484; 85025; 85610; 85730; 93005; 99284